=== PATIENT | female | born 1950 | race Caucasian/White ===

== ENCOUNTER → 2019-10-31 11:23 | Outpatient (BNVA) | payer MEDICARE, MEDICAID, SELFPAY | PROVIDERS: Family Provider Family Medicine; PCP Family Medicine; Visit Provider Internal Medicine Cardiovascular Disease | DX: Z95.2 Presence of prosthetic heart valve (principal) | CPT/HCPCS: 85610 ==

== ENCOUNTER → 2019-12-09 12:11 | Outpatient (BNVA) | payer MEDICARE, MEDICAID, SELFPAY | PROVIDERS: Family Provider Family Medicine; PCP Family Medicine; Visit Provider Internal Medicine Cardiovascular Disease | DX: Z95.2 Presence of prosthetic heart valve (principal) | CPT/HCPCS: 85610 ==

== ENCOUNTER → 2020-02-17 13:42 | Outpatient (BNVA) | payer MEDICARE, MEDICAID, SELFPAY | PROVIDERS: Family Provider Family Medicine; PCP Family Medicine; Visit Provider Internal Medicine Cardiovascular Disease | DX: Z95.2 Presence of prosthetic heart valve (principal) | CPT/HCPCS: 85610 ==

== ENCOUNTER → 2020-02-24 11:08 | Outpatient (BNVA) | payer MEDICARE, MEDICAID, SELFPAY | PROVIDERS: Family Provider Family Medicine; PCP Family Medicine; Visit Provider Internal Medicine Cardiovascular Disease | DX: Z95.2 Presence of prosthetic heart valve (principal) | CPT/HCPCS: 85610 ==

== ENCOUNTER → 2020-03-03 11:31 | Outpatient (BNVA) | payer MEDICARE, MEDICAID, SELFPAY | PROVIDERS: Family Provider Family Medicine; PCP Family Medicine; Visit Provider Internal Medicine Cardiovascular Disease | DX: Z95.2 Presence of prosthetic heart valve (principal) | CPT/HCPCS: 85610 ==

== ENCOUNTER → 2020-03-11 13:09 | Outpatient (BNVA) | payer MEDICARE, MEDICAID, SELFPAY | PROVIDERS: Family Provider Family Medicine; PCP Family Medicine; Visit Provider Internal Medicine Cardiovascular Disease | DX: Z95.2 Presence of prosthetic heart valve (principal) | CPT/HCPCS: 85610 ==

== ENCOUNTER → 2020-04-14 11:38 | Outpatient (BNVA) | payer MEDICARE, MEDICAID, SELFPAY | PROVIDERS: Family Provider Family Medicine; PCP Family Medicine; Visit Provider Internal Medicine Cardiovascular Disease | DX: Z95.2 Presence of prosthetic heart valve (principal) | CPT/HCPCS: 85610 ==

== ENCOUNTER → 2020-04-23 09:02 | Outpatient (BNVA) | payer MEDICARE, MEDICAID, SELFPAY | PROVIDERS: Family Provider Family Medicine; PCP Family Medicine; Visit Provider Internal Medicine Cardiovascular Disease | DX: Z95.2 Presence of prosthetic heart valve (principal) | CPT/HCPCS: 85610 ==

== ENCOUNTER 2020-05-29 23:09 | Emergency (ER) | payer MEDICARE, MEDICAID, SELFPAY ==
[2020-05-29 23:12] VITALS: PULSE 103; RESP 22; TEMP 36.6; O2SAT 96; BMI 32.0
[2020-05-29 23:21] VITALS: BP 190/93; PULSE 100; RESP 20; O2SAT 97
--- NOTE | 2020-05-29 23:24 | ECG_ITS ---
[facility] Test Date: 2020-05-29 Pat Name: Odilia Ulloa Department: Room: Gender: Female [facility] Sales: : 1950 Requested By: Piyush Foster Order Number: [id number] Supriya MD: Katrin Petit M.D. Measurements Intervals [place] Rate: 98 P: [place]: -1 QRS: 27 QRSD: 110 T: 6 QT: 302 QTc: 386 Interpretive Statements ATRIAL FIBRILLATION NONSPECIFIC ST & T-WAVE ABNORMALITY ABNORMAL RHYTHM ECG Compared to ECG 09/11/2019 08:29:28 Intraventricular conduction delay no longer present T-wave abnormality still present Electronically Signed On 05-30-2020 22:54:48 CDT by Katrin Petit M.D. [id number]
--- NOTE | 2020-05-29 23:25 | W.ED.SOB ---
HPI - SOB/Dyspnea General: Chief Complaint: Shortness of Breath/Dyspnea Stated Complaint: sob, [place], not feeling well Time Seen by Provider: 05/29/20 23:19 Source: patient Mode of arrival: ambulatory Limitations: no limitations History of Present Illness: HPI Narrative: Odilia is a 69-year-old female states she has been having a headache along with generalized body aches and shortness of breath of last 3 to 4 days. She states she just generally does not feel very well. Denies any chest pain. Patient oxygen saturation here is 97% on room air. Denies any worsening or improving factors. Associated symptoms: Deny abdominal pain, chest pain, fever(s), nausea or vomiting Review of Systems Const: Denies: fever(s), chills, body aches or change in appetite Eyes: Denies: blurry vision or eye discomfort ENMT: Denies: throat pain or dental pain Card: Denies: chest pain Resp: Reports: dyspnea GI: Denies: abdominal pain, nausea, vomiting or diarrhea : Denies: dysuria Musc: Denies: neck pain or back pain Skin/Breast: Denies: rash Neuro: Reports: headache(s) Psych: Denies: depression Guzman/Lymph: Denies: easy bruising All/Imm: Denies: urticaria PFSH ED PFSH: Medical History CHF (congestive heart failure) Chronic atrial fibrillation Chronic constipation Chronic neck and back pain Coronary artery disease GERD (gastroesophageal reflux disease) Hyperlipidemia Hypothyroid Insomnia Memory impairment of gradual onset Surgical History H/O section Mitral valve replaced valve replacement 1994 S/P cholecystectomy Family History Other CAD (coronary artery disease) Diabetes Social History Smoking and tobacco status: never smoked Alcohol intake: never Female Reproductive History: Para: 1 Physical Exam Const: COMMON NORMALS: no acute distress, patient oriented x3 and healthy appearing HENMT: COMMON NORMALS: normocephalic and atraumatic HEAD & SCALP: normocephalic and atraumatic Eye: COMMON NORMALS: Equal, round and reactive pupils present and EOMs intact bilaterally PUPIL: Yes Equal, round and reactive pupils present Neck/C-Spine: COMMON NORMALS: full ROM and supple Chest: COMMONS NORMALS: normal inspection of the chest and normal palpation of entire chest wall Resp: COMMON NORMALS: normal respiratory effort, No retractions, No use of accessory muscles and clear to auscultation bilaterally AUSCULTATION: clear to auscultation bilaterally Cardio: COMMON NORMALS: regular rate, regular rhythm and No murmurs present (Cardio) RATE: regular rate RHYTHM: regular rhythm GI: COMMON NORMALS: Normal to inspection, nondistended, normoactive bowel sounds present, Soft to palpation, non-tender and no masses PALPATION: Yes Soft to palpation Extremity: COMMON NORMALS: normal to inspection and full ROM Neuro: COMMON NORMALS: patient oriented x3, moves all extremities and no focal motor deficits Psych: COMMON NORMALS: mental status grossly normal, Normal thought process present and cooperative THOUGHT PROCESS: Normal thought process present Skin: COMMON NORMALS: no rashes or lesions noted and no wounds GENERAL SKIN EXAM: no rashes or lesions noted Course Vital Signs: Vital signs: Vital Signs Temperature 97.8 F 05/29/20 23:12 Pulse Rate 85 05/30/20 01:04 Respiratory Rate 16 05/30/20 01:04 Blood Pressure 153/70 05/30/20 01:04 Pulse Oximetry 98 05/30/20 01:04 MDM - SOB/Dyspnea MDM Narrative: Medical decision making narrative: Patient presents here with dyspnea along with a headache that is chronic in nature. Patient given IV Lasix for CHF. Patient is not requiring any oxygen. Patient is stable for discharge and is return if worsening. Patient's headache is resolved. Lab Data: Labs: Lab Results 05/29/20 05/29/20 Range/Units 23:37 23:37 WBC 5.7 (4.0-10.0) 10^3/ uL RBC 3.50 L (4.1-5.3) 10^6/u L Hgb 8.8 L (11.5-15.3) g/dL Hct 29.8 L (37.0-47.0) % MCV 85.1 (81-99) fL MCH 25.1 L (28.0-34.0) pg MCHC 29.5 L (30.0-36.0) g/dL RDW 18.8 H (12.1-15.1) % Plt Count 303 (130-400) 10^3/c mm MPV 9.9 (7.4-10.4) fL Neut % (Auto) 46.1 % Lymph % (Auto) 35.8 % [place] % (Auto) 10.9 % Eos % (Auto) 5.4 % Baso % (Auto) 1.4 % Neut # (Auto) 2.63 (1.8-7.7) 10^3/u L Lymph # (Auto) 2.0 (0.8-4.8) 10^3/u L [place] # (Auto) 0.6 (0.2-0.9) 10^3/u L Eos # (Auto) 0.3 (0.0-0.8) 10^3/u L Baso # (Auto) 0.1 (0.0-0.1) 10^3/u L Nucleated RBC % (a uto) 0 % Nucleated RBCs # 0.0 /100WBC Sodium 139 (136-145) mmol/L Potassium 3.8 (3.5-5.1) mmol/L Chloride 108 H (98-107) mmol/L Carbon Dioxide 25 (22-29) mmol/L Anion Gap 9.8 (5-19) BUN 17 (8-23) mg/dL Creatinine 0.8 (0.5-0.9) mg/dL GFR Calculation 70.9 L (90-130) mL/min Glucose 119 H (65-115) mg/dL Calculated Osmolal ity 286 (285-295) mOsm/k g Calcium 9.0 (8.5-10.5) mg/dL Total Bilirubin 0.5 (0.15-1.2) mg/dL AST 46 H (0-32) U/L ALT 44 H (0-33) U/L Alkaline Phosphata se 95 (35-105) IU/L NT-Pro-B Natriuret Pep 560 H (0-125) pg/mL Total Protein 7.3 (6.6-8.7) g/dL Albumin 4.1 (3.5-5.2) g/dL Globulin 3.2 (1.3-4.6) g/dL Imaging Data^: CXR: Attestation: I personally reviewed and interpreted this imaging study as follows: Radiologist's impression: [address] [address] XRay Report Signed Patient: Odilia Ulloa Unit #: [id number] : 1950 Age/Sex: 69 / F ADM Date: 05/29/20 Loc: ER Room/Bed: Attending Dr: Ordering Provider/Ordering MD: Piyush Foster MD Date of Service: 05/29/20 Procedure(s): XR chest 1V portable [id number] Accession Number(s): [id number] Report Number: [id number] PROCEDURE INFORMATION: Exam: XR Chest, 1 View Exam date and time: 05/30/2020 12:14 AM Age: 69 years old Clinical indication: Dyspnea; Prior surgery; Surgery date: 6+ months; Additional info: SOB TECHNIQUE: Imaging protocol: XR of the chest Views: 1 view. COMPARISON: CR Chest 1 [place] [id number] 09/11/2019 8:49 AM FINDINGS: Lungs: There is vascular congestion with cephalization of flow, interstitial edema and ground-glass opacities compatible with CHF. There is linear scarring in the left lung base. No lobar consolidation. Pleural space: Unremarkable. No pleural effusion. No pneumothorax. Heart/Mediastinum: The heart is enlarged. Bones/joints: Sternotomy wires and mediastinal surgical clips are present, consistent with previous coronary arterial bypass grafting. Scoliosis and moderate to severe degenerative changes in the spine are noted. XR/XR chest 1V portable [id number] IMPRESSION: There is vascular congestion with cephalization of flow, interstitial edema and ground-glass opacities compatible with CHF. EKG Data^: EKG 1: Attestation: I personally reviewed and interpreted this EKG as follows: EKG Interpretation Date: 05/29/20 EKG interpretation time: 23:33 Interpretation: afib hr [address] or t wave abnormalities qrs 110 qtc 357 Discharge Plan Discharge Patient Disposition: Home Clinical Impression: Tension headache CHF (congestive heart failure) Qualifiers: Heart failure type: unspecified Heart failure chronicity: chronic Qualified Code(s): I50.9 - Heart failure, unspecified Condition: Stable Prescriptions: No Action furosemide 20 mg tablet 20 mg PO QAM PRN (Reason: edema) Qty: 30 RF: 6 nitroglycerin [Nitrostat] 0.4 mg tablet, sublingual 0.4 mg SUBLINGUAL Q5M PRNRF: 0 metoprolol tartrate 25 mg tablet 12.5 mg PO BID RF: 0 amiodarone 400 mg tablet 400 mg PO DAILY RF: 0 atorvastatin 40 mg tablet 40 mg PO DAILY RF: 0 isosorbide dinitrate 30 mg tablet See Rx Instructions PO DAILY RF: 0 warfarin 5 mg tablet 5 mg PO DAILY RF: 0 venlafaxine 150 mg capsule,extended release 24hr 150 mg PO QAM Qty: 30 RF: 2 baclofen 10 mg tablet 10 mg PO DAILY Qty: 30 RF: 2 warfarin 1 mg tablet 1 mg PO DIRECTED 30 Days Qty: 30 RF: 6 warfarin 4 mg tablet 4 mg PO DAILY Qty: 30 RF: 3 warfarin 3 mg tablet 3 mg PO DAILY Qty: 30 RF: 2 pantoprazole 40 mg tablet,delayed release (DR/EC) 40 mg PO DAILY Qty: 90 RF: 0 levothyroxine 75 mcg capsule 75 mcg PO DAILY Qty: 30 RF: 2 Discharge Orders: Discharge Order (Routine); Ordered 05/30/20 Ordered By: Piyush Foster Referrals: Kenzie Gonzalez DO [Primary Care Provider] - 1-3 days Discharge Diet: Advance as tolerated Discharge Activity: Resume usual activity Patient Instructions: Heart Failure (ED), Acute Headache (ED) Discharge Date/Time: 05/30/20 01:12 Coding Level of Care Code ED Window Unit Air Conditioning Mechanic for Chg Fwd Exam Comprehensive
[2020-05-29 23:45] LABS: Basophils # 0.1 10^3/uL (0.0-0.1); Basophils % 1.4 %; Eosinophils # 0.3 10^3/uL (0.0-0.8); Eosinophils % 5.4 %; Hematocrit 29.8 % (37.0-47.0); Hemoglobin 8.8 g/dL (11.5-15.3); Lymphocytes % 35.8 %; Mean Corpuscular HGB Conc 29.5 g/dL (30.0-36.0); Mean Corpuscular Hemoglobin 25.1 pg (28.0-34.0); Mean Corpuscular Volume 85.1 fL (81-99); Mean Platelet Volume 9.9 fL (7.4-10.4); Monocytes # 0.6 10^3/uL (0.2-0.9); Monocytes % 10.9 %; Neutrophils # 2.63 10^3/uL (1.8-7.7); Neutrophils % 46.1 %; Nucleated Red Blood Cells % 0 %; Platelet Count 303 10^3/cmm (130-400); Red Cell Distribution Width 18.8 % (12.1-15.1); White Blood Count 5.7 10^3/uL (4.0-10.0)
[2020-05-30] VITALS: BP 134/90; PULSE 89; RESP 19; O2SAT 98
[2020-05-30] MEDS: diphenhydrAMINE 50 mg/mL SDV 1mL 25 MG IVP (00:05)
[2020-05-30] MEDS: metoclopramide 5 mg/mL SDV 2 mL IVP (00:06)
[2020-05-30 00:12] LABS: Alanine Aminotransferase 44 U/L (0-33); Albumin Level 4.1 g/dL (3.5-5.2); Alkaline Phosphatase 95 IU/L (35-105); Anion Gap 9.8 (5-19); Aspartate Amino Transferase 46 U/L (0-32); Blood Urea Nitrogen 17 mg/dL (8-23); Carbon Dioxide 25 mmol/L (22-29); Chloride 108 mmol/L (98-107); Globulin 3.2 g/dL (1.3-4.6); Glomerular Filtration Rate 70.9 mL/min (90-130); Glucose 119 mg/dL (65-115); NT Pro B Type Natriuretic Pept 560 pg/mL (0-125); Osmolality Calculated 286 mOsm/kg (285-295); Potassium 3.8 mmol/L (3.5-5.1); Sodium 139 mmol/L (136-145); Total Bilirubin 0.5 mg/dL (0.15-1.2); Total Protein 7.3 g/dL (6.6-8.7)
[2020-05-30] MEDS: FUROsemide 10 mg/mL SDV 10mL 60 MG IVP (01:01)
[2020-05-30 01:04] VITALS: BP 153/70; PULSE 85; RESP 16; O2SAT 98
== END 2020-05-30 01:12 | disposition home or self-care (01) ==
PROVIDERS: Emergency Provider Emergency Medicine; PCP Family Medicine
DX: I11.0 Hypertensive heart disease with heart failure (principal); I50.9 Heart failure, unspecified; G44.209 Tension-type headache, unspecified, not intractable; Z79.01 Long term (current) use of anticoagulants; I48.20 Chronic atrial fibrillation, unspecified; I25.10 Atherosclerotic heart disease of native coronary artery without angina pectoris; E78.5 Hyperlipidemia, unspecified
CPT/HCPCS: 12345; 71045; 80053; 83880; 85025; 93005; 96374; 96375; 99283; 99284; J1200; J1940; J2765

== ENCOUNTER 2020-06-03 12:44 | Emergency (ER) | payer MEDICARE, MEDICAID, SELFPAY ==
[2020-06-03 12:52] VITALS: BP 127/77; PULSE 89; RESP 14; TEMP 36.9; O2SAT 95; BMI 31.8
--- NOTE | 2020-06-03 13:10 | ECG_ITS ---
[facility] Test Date: 2020-06-03 Pat Name: Odilia Ulloa Department: Room: Gender: Female [employer]: : 1950 Requested By: Aneta Jonas Order Number: [id number] Supriya MD: Katrin Petit M.D. Measurements Intervals [place] Rate: 80 P: [place]: -1 QRS: 23 QRSD: 114 T: 7 QT: 410 QTc: 473 Interpretive Statements ATRIAL FIBRILLATION POSSIBLE INFERIOR MYOCARDIAL INFARCTION , PROBABLY OLD [30 ms Q WAVE IN II/aVF] ABNORMAL RHYTHM ECG Compared to ECG 05/29/2020 23:33:52 Myocardial infarct finding now present T-wave abnormality no longer present Electronically Signed On 06-03-2020 21:16:22 CDT by Katrin Petit M.D. [id number] f
--- NOTE | 2020-06-03 13:10 | XR_ITS ---
WS: [id number] PORTABLE CHEST HISTORY: chest pain COMPARISON: 05/30/2020 Mild pulmonary venous congestion has progressed since the prior study. No pneumonia. No pleural effus ion or pneumothorax. Cardiac size: Moderately enlarged cardiac silhouette. Mediastinum/Aorta: Mild atherosclerosis aorta. No osseous abnormality seen. XR/XR chest 1V portable [id number] IMPRESSION: Interval development of mild pulmonary congestion. No pneumonia.
--- NOTE | 2020-06-03 13:12 | ED_ITS ---
HPI - SOB/Dyspnea General: Chief Complaint: General Medical Stated Complaint: sob, facial swelling Time Seen by Provider: 06/03/20 12:58 Source: patient Mode of arrival: ambulatory Limitations: no limitations History of Present Illness: HPI Narrative: Patient is a 69-year-old female who presents to ED today with a complaint that I just don't feel good . Patient tells me that she has a cough, feels short of breath, feels like her face is swollen, and is having swelling to her legs. She chronically has swelling to her legs that she treats with 20 mg of Lasix daily. Patient tells me shortness of breath does not seem to be worse with lying flat or exertion. No PND. She has not been running fevers. She states when she coughs she has pain in her throat and chest. Patient denies palpitations, dizziness, lightheadedness. No other URI symptoms apart from her cough. Denies sick contacts. Patient was seen here in our emergency department a few days ago for similar symptoms. Patient tells me she has an appointment with primary care tomorrow morning. Associated symptoms: Reports chest pain; Deny abdominal pain, dizziness, extremity pain, fever(s), hemoptysis, lightheadedness, nausea, orthopnea, palpitations, syncope or vomiting Review of Systems Const: Denies: fever(s), chills, body aches, fatigue or malaise Eyes: Denies: change in vision, blurry vision, photophobia, floaters or seeing flashes ENMT: Denies: odynophagia Card: Reports: chest pain, irregular heart rhythm (chronic atrial fib), edema (chronic ) and swelling of feet/ankles (chronic ); Denies: palpitations, lightheadedness, syncope, pre-syncope, orthopnea or leg pain with exertion Resp: Reports: dyspnea, non-productive cough and pain on inspiration; Denies: productive cough, wheezing or hemoptysis GI: Denies: abdominal pain, nausea, vomiting, diarrhea or change in bowel habits : Denies: flank pain, difficulty voiding, dysuria, urinary frequency or urinary urgency Musc: Reports: extremity swelling (chronic LE swelling ); Denies: neck pain, back pain, extremity pain, joint pain or joint swelling Skin/Breast: Denies: rash, new lesions or changes in skin color Neuro: Denies: headache(s), numbness in extremities, weakness in extremities, sensory changes, lack of coordination, difficulty walking, frequent falls, dizziness, vertigo, confusion, behavioral changes or Slurred speech [facility]: Medical History (Updated 06/03/20 @ 15:05 by KIKE Elizalde) CHF (congestive heart failure) Chronic atrial fibrillation Chronic constipation Chronic neck and back pain Coronary artery disease GERD (gastroesophageal reflux disease) Hyperlipidemia Hypothyroid Insomnia Memory impairment of gradual onset Surgical History H/O section Mitral valve replaced valve replacement 1994 S/P cholecystectomy Family History Other CAD (coronary artery disease) Diabetes Social History Smoking and tobacco status: never smoked Alcohol intake: never Female Reproductive History: Para: 1 Physical Exam Const: COMMON NORMALS: no acute distress, patient oriented x3, no limitations and alert ORIENTATION/CONSCIOUSNESS: Yes oriented to person, Yes oriented to place and Yes oriented to time HENMT: COMMON NORMALS: normocephalic and atraumatic HEAD & SCALP: normocephalic and atraumatic FACE & SINUS: normal facial exam and other (no facial swelling noted) Neck/C-Spine: COMMON NORMALS: full ROM, no lymphadenopathy and no meningeal signs Chest: COMMONS NORMALS: normal inspection of the chest and normal palpation of entire chest wall Resp: COMMON NORMALS: normal respiratory effort and clear to auscultation bilaterally AUSCULTATION: clear to auscultation bilaterally Cardio: COMMON NORMALS: regular rate RATE: regular rate RHYTHM: abnormal rhythm regularly irregular GI: COMMON NORMALS: Normal to inspection, nondistended, normoactive bowel sounds present, Soft to palpation, non-tender, No hepatosplenomegaly present and no masses PALPATION: Yes Soft to palpation and Yes No hepatosplenomegaly present : COMMON NORMALS: Yes no CVA tenderness BLADDER/KIDNEY EXAM: Yes no CVA tenderness Back/Pelvis: COMMON NORMALS: no CVA tenderness Extremity: COMMON NORMALS: full ROM, capillary refill normal, no joint enlargement, no clubbing, cyanosis or edema, no calf tenderness and no pedal edema OTHER: mild bilateral non-pitting edema Neuro: ANT COMA SCALE: document GCS findings [place] coma scale eye opening: Spontaneous Ant coma scale verbal response: Orientated Ant coma scale motor response: Obey commands Ant coma scale total score: 15 COMMON NORMALS: patient oriented x3 SENSORIUM/ORIENTATION: Yes alert, Yes oriented to person, Yes oriented to place and Yes oriented to time MENINGEAL SIGNS: Yes no meningeal signs Skin: COMMON NORMALS: no rashes or lesions noted GENERAL SKIN EXAM: no rashes or lesions noted Course Vital Signs: Vital signs: Vital Signs Temperature 98.5 F 06/03/20 12:52 Pulse Rate 89 06/03/20 12:52 Respiratory Rate 14 06/03/20 12:52 Blood Pressure 127/77 06/03/20 12:52 Pulse Oximetry 98 06/03/20 14:10 MDM - SOB/Dyspnea MDM Narrative: Medical decision making narrative: Odilia is a 69-year-old female who is well-known to our emergency department here for complaints of not feeling well and increased swelling. On exam she has very mild bilateral non- pitting edema. She states this is minimally worse than her baseline. Chest x- ray does show some mild pulmonary congestion. BNP is slightly elevated at 649. Patient normally takes 20 mg Lasix daily for her CHF. Patient does not complain of any worsening shortness of breath with lying flat. No PND. She was given 40 mg Lasix here and we will increase her Lasix at home over the next 5 days. Patient is anticoagulated with warfarin due to her atrial fib and artificial mitral valve. She was supratherapeutic on her INR today at 4.6. Patient is often found to be supratherapeutic. She admittedly has not checked her INR in several weeks. Patient tells me she normally takes 4 mg warfarin on Sunday and 3 mg the remainder of the week. We will have her decrease this and take 1 mg tomorrow and the following day and then can go back to her regular schedule. She has an appointment with PCP tomorrow who can schedule her for repeat INR check. Patient is chronically anemic at 8.9. This is stable compared to her baseline. She is not complaining of any hematemesis or bloody/black stools. She has very mildly elevated LFTs. She does not complain of any abdominal pain, nausea, vomiting. Patient's vitals are completely stable. She clinically appears in no acute distress. Patient is stable for follow-up with her primary care tomorrow Lab Data: Labs: Lab Results 06/03/20 06/03/20 06/03/20 Range/Units 13:17 13:17 13:17 WBC 5.1 (4.0-10.0) 10^3/ uL RBC 3.66 L (4.1-5.3) 10^6/u L Hgb 8.9 L (11.5-15.3) g/dL Hct 30.6 L (37.0-47.0) % MCV 83.6 (81-99) fL MCH 24.3 L (28.0-34.0) pg MCHC 29.1 L (30.0-36.0) g/dL RDW 18.8 H (12.1-15.1) % Plt Count 318 (130-400) 10^3/c mm MPV 9.5 (7.4-10.4) fL Neut % (Auto) 54.0 % Lymph % (Auto) 29.2 % [place] % (Auto) 10.5 % Eos % (Auto) 4.5 % Baso % (Auto) 1.6 % Neut # (Auto) 2.74 (1.8-7.7) 10^3/u L Lymph # (Auto) 1.5 (0.8-4.8) 10^3/u L [place] # (Auto) 0.5 (0.2-0.9) 10^3/u L Eos # (Auto) 0.2 (0.0-0.8) 10^3/u L Baso # (Auto) 0.1 (0.0-0.1) 10^3/u L Nucleated RBC % (a uto) 0 % Nucleated RBCs # 0.0 /100WBC PT 45.30 H (12.1-14.9) SECO NDS INR 4.60 H (0.8-1.2) Sodium 137 (136-145) mmol/L Potassium 4.1 (3.5-5.1) mmol/L Chloride 103 (98-107) mmol/L Carbon Dioxide 28 (22-29) mmol/L Anion Gap 10.1 (5-19) BUN 16 (8-23) mg/dL Creatinine 0.8 (0.5-0.9) mg/dL GFR Calculation 70.9 L (90-130) mL/min Glucose 123 H (65-115) mg/dL Calculated Osmolal ity 282 L (285-295) mOsm/k g Calcium 9.7 (8.5-10.5) mg/dL Total Bilirubin 0.6 (0.15-1.2) mg/dL AST 41 H (0-32) U/L ALT 51 H (0-33) U/L Alkaline Phosphata se 95 (35-105) IU/L Troponin T Gen 5 n g/L (0-10) ng/L NT-Pro-B Natriuret Pep 649 H (0-125) pg/mL Total Protein 7.3 (6.6-8.7) g/dL Albumin 4.1 (3.5-5.2) g/dL Globulin 3.2 (1.3-4.6) g/dL TSH 1.77 (0.27-4.20) uIU/ mL 06/03/20 Range/Units 13:17 WBC (4.0-10.0) 10^3/ uL RBC (4.1-5.3) 10^6/u L Hgb (11.5-15.3) g/dL Hct (37.0-47.0) % MCV (81-99) fL MCH (28.0-34.0) pg MCHC (30.0-36.0) g/dL RDW (12.1-15.1) % Plt Count (130-400) 10^3/c mm MPV (7.4-10.4) fL Neut % (Auto) % Lymph % (Auto) % [place] % (Auto) % Eos % (Auto) % Baso % (Auto) % Neut # (Auto) (1.8-7.7) 10^3/u L Lymph # (Auto) (0.8-4.8) 10^3/u L [place] # (Auto) (0.2-0.9) 10^3/u L Eos # (Auto) (0.0-0.8) 10^3/u L Baso # (Auto) (0.0-0.1) 10^3/u L Nucleated RBC % (a uto) % Nucleated RBCs # /100WBC PT (12.1-14.9) SECO NDS INR (0.8-1.2) Sodium (136-145) mmol/L Potassium (3.5-5.1) mmol/L Chloride (98-107) mmol/L Carbon Dioxide (22-29) mmol/L Anion Gap (5-19) BUN (8-23) mg/dL Creatinine (0.5-0.9) mg/dL GFR Calculation (90-130) mL/min Glucose (65-115) mg/dL Calculated Osmolal ity (285-295) mOsm/k g Calcium (8.5-10.5) mg/dL Total Bilirubin (0.15-1.2) mg/dL AST (0-32) U/L ALT (0-33) U/L Alkaline Phosphata se (35-105) IU/L Troponin T Gen 5 n g/L 12 H (0-10) ng/L NT-Pro-B Natriuret Pep (0-125) pg/mL Total Protein (6.6-8.7) g/dL Albumin (3.5-5.2) g/dL Globulin (1.3-4.6) g/dL TSH (0.27-4.20) uIU/ mL Imaging Data^: CXR: Radiologist's impression: [address] [address] XRay Report Signed Patient: Odilia Ulloa Unit #: [id number] : 1950 Age/Sex: 69 / F ADM Date: 06/03/20 Loc: ER Room/Bed: Attending Dr: Ordering Provider/Ordering MD: Aneta Jonas Date of Service: 06/03/20 Procedure(s): XR chest 1V portable [id number] Accession Number(s): [id number] Report Number: [id number] WS: [id number] PORTABLE CHEST HISTORY: chest pain COMPARISON: 05/30/2020 Mild pulmonary venous congestion has progressed since the prior study. No pneumonia. No pleural effusion or pneumothorax. Cardiac size: Moderately enlarged cardiac silhouette. Mediastinum/Aorta: Mild atherosclerosis aorta. No osseous abnormality seen. XR/XR chest 1V portable [id number] IMPRESSION: Interval development of mild pulmonary congestion. No pneumonia. Dictated By: Zaida Bone DO Signed By: Zaida Bone DO Signed Date/Time: 06/03/201352 DD/ 51 Discharge Plan Discharge Patient Disposition: Home Clinical Impression: Supratherapeutic INR, Chronic anemia Chronic CHF Qualifiers: Heart failure type: unspecified Qualified Code(s): I50.9 - Heart failure, unspecified Atrial fibrillation Qualifiers: Atrial fibrillation type: longstanding persistent Qualified Code(s): I48.11 - Longstanding persistent atrial fibrillation Condition: Stable Prescriptions: No Action furosemide 20 mg tablet 20 mg PO QAM PRN (Reason: edema) Qty: 30 RF: 6 nitroglycerin [Nitrostat] 0.4 mg tablet, sublingual 0.4 mg SUBLINGUAL Q5M PRN (Reason: chest pains) RF: 0 metoprolol tartrate 25 mg tablet 12.5 mg PO BID RF: 0 amiodarone 400 mg tablet 400 mg PO DAILY RF: 0 atorvastatin 40 mg tablet 40 mg PO DAILY RF: 0 isosorbide dinitrate 30 mg tablet See Rx Instructions PO DAILY RF: 0 warfarin 5 mg tablet 5 mg PO DAILY RF: 0 baclofen 10 mg tablet 10 mg PO DAILY Qty: 30 RF: 2 warfarin 1 mg tablet 1 mg PO DIRECTED 30 Days Qty: 30 RF: 6 warfarin 4 mg tablet 4 mg PO DAILY Qty: 30 RF: 3 levothyroxine 75 mcg capsule 75 mcg PO DAILY Qty: 30 RF: 2 venlafaxine 150 mg capsule,extended release 24hr 150 mg PO QAM Qty: 30 RF: 2 warfarin 3 mg tablet See Rx Instructions .ROUTE .COMPLEX RF: 0 pantoprazole 40 mg tablet,delayed release (DR/EC) 40 mg PO DAILY RF: 0 Discharge Orders: Discharge Order (Routine); Ordered 06/03/20 Ordered By: Aneta Jonas Referrals: Kenzie Gonzalez DO [Primary Care Provider] - Activity Restrictions/Additional Instructions: As discussed increase your Lasix from 20mg daily to 40mg daily x 5 days. Then return to your normal 20mg. You INR today was slightly elevated. Please take 1mg (instead of your normal 3mg) on Sunday and Sunday. You may resume normal dosing afterwards. Primary care will most likely elect to repeat this level soon to make sure you are therapeutic. Discharge Date/Time: 06/03/20 15:16 Coding Level of Care Code ED Park Superintendent for Chg Fwd Exam Comprehensive
[2020-06-03 13:22] LABS: Basophils # 0.1 10^3/uL (0.0-0.1); Basophils % 1.6 %; Eosinophils # 0.2 10^3/uL (0.0-0.8); Eosinophils % 4.5 %; Hematocrit 30.6 % (37.0-47.0); Hemoglobin 8.9 g/dL (11.5-15.3); Lymphocytes # 1.5 10^3/uL (0.8-4.8); Lymphocytes % 29.2 %; Mean Corpuscular HGB Conc 29.1 g/dL (30.0-36.0); Mean Corpuscular Hemoglobin 24.3 pg (28.0-34.0); Mean Corpuscular Volume 83.6 fL (81-99); Mean Platelet Volume 9.5 fL (7.4-10.4); Monocytes # 0.5 10^3/uL (0.2-0.9); Monocytes % 10.5 %; Neutrophils # 2.74 10^3/uL (1.8-7.7); Nucleated Red Blood Cells % 0 %; Platelet Count 318 10^3/cmm (130-400); Red Blood Count 3.66 10^6/uL (4.1-5.3); Red Cell Distribution Width 18.8 % (12.1-15.1); White Blood Count 5.1 10^3/uL (4.0-10.0)
[2020-06-03 13:57] LABS: Troponin T (5th) Once 12 ng/L (0-10)
[2020-06-03 14:08] LABS: Alanine Aminotransferase 51 U/L (0-33); Albumin Level 4.1 g/dL (3.5-5.2); Alkaline Phosphatase 95 IU/L (35-105); Anion Gap 10.1 (5-19); Aspartate Amino Transferase 41 U/L (0-32); Blood Urea Nitrogen 16 mg/dL (8-23); Calcium 9.7 mg/dL (8.5-10.5); Carbon Dioxide 28 mmol/L (22-29); Chloride 103 mmol/L (98-107); Globulin 3.2 g/dL (1.3-4.6); Glomerular Filtration Rate 70.9 mL/min (90-130); Glucose 123 mg/dL (65-115); NT Pro B Type Natriuretic Pept 649 pg/mL (0-125); Osmolality Calculated 282 mOsm/kg (285-295); Potassium 4.1 mmol/L (3.5-5.1); Sodium 137 mmol/L (136-145); Thyroid Stimulating Hormone 1.77 uIU/mL (0.27-4.20); Total Bilirubin 0.6 mg/dL (0.15-1.2); Total Protein 7.3 g/dL (6.6-8.7)
[2020-06-03 14:10] VITALS: O2SAT 98
[2020-06-03 15:11] VITALS: BP 121/79; PULSE 93; RESP 16; O2SAT 92
[2020-06-03] MEDS: FUROsemide 10 mg/mL SDV 4mL 40 MG IVP (15:11)
== END 2020-06-03 15:16 | disposition home or self-care (01) ==
PROVIDERS: Emergency Provider Physician Assistant; PCP Family Medicine
DX: D64.89 Other specified anemias (principal); I50.9 Heart failure, unspecified; I48.11 Longstanding persistent atrial fibrillation; Z79.01 Long term (current) use of anticoagulants; I48.20 Chronic atrial fibrillation, unspecified; I25.10 Atherosclerotic heart disease of native coronary artery without angina pectoris; E78.5 Hyperlipidemia, unspecified
CPT/HCPCS: 12345; 36415; 71045; 80053; 83880; 84443; 84484; 85025; 85610; 93005; 96374; 99282; 99284; J1940

== ENCOUNTER → 2020-06-07 15:49 | Outpatient (BNVA) | payer MEDICARE, MEDICAID, SELFPAY | PROVIDERS: PCP Family Medicine; Visit Provider Internal Medicine Cardiovascular Disease | DX: Z95.2 Presence of prosthetic heart valve (principal); I48.11 Longstanding persistent atrial fibrillation; I50.9 Heart failure, unspecified | CPT/HCPCS: 85610 ==

== ENCOUNTER → 2020-06-14 10:12 | Outpatient (BNVA) | payer MEDICARE, MEDICAID, SELFPAY | PROVIDERS: PCP Nurse Practitioner Family; Visit Provider Internal Medicine Cardiovascular Disease | DX: Z95.2 Presence of prosthetic heart valve (principal) | CPT/HCPCS: 85610 ==

== ENCOUNTER → 2020-07-14 10:59 | Outpatient (BNVA) | payer MEDICARE, MEDICAID, SELFPAY | PROVIDERS: PCP Nurse Practitioner Family; Visit Provider Internal Medicine Cardiovascular Disease | DX: Z95.2 Presence of prosthetic heart valve (principal) | CPT/HCPCS: 85610 ==

== ENCOUNTER → 2020-07-22 10:02 | Outpatient (BNVA) | payer MEDICARE, MEDICAID, SELFPAY | PROVIDERS: PCP Nurse Practitioner Family; Visit Provider Internal Medicine Cardiovascular Disease | DX: Z95.2 Presence of prosthetic heart valve (principal); I48.20 Chronic atrial fibrillation, unspecified | CPT/HCPCS: 85610 ==

== ENCOUNTER 2020-09-19 03:23 | Emergency (ER) | payer MEDICARE, MEDICAID, SELFPAY ==
[2020-09-19 03:27] VITALS: BP 138/91; PULSE 84; RESP 18; TEMP 36.8; O2SAT 91; BMI 32.1
--- NOTE | 2020-09-19 03:55 | XRR_ITS ---
PROCEDURE INFORMATION: Exam: XR Right Shoulder Exam date and time: 09/19/2020 4:23 AM Age: 69 years old Clinical indication: Injury or trauma; Fall; Blunt trauma (contusions or hematomas); Shoulder; Right TECHNIQUE: Imaging protocol: XR Right shoulder. Views: 2 or more views. COMPARISON: No relevant prior studies available. FINDINGS: Bones/joints: There is a comminuted fracture of the humeral neck. The humeral shaft is displaced anteriorly by approximately 1 cm. The humeral head does not appear to be dislocated. The visualized portion of the clavicle and scapula are unremarkable. Soft tissues: Normal. XR/XR shoulder RT min 2V* [id number] IMPRESSION: Displaced comminuted fracture of the humeral neck.
--- NOTE | 2020-09-19 03:57 | ED_ITS ---
HPI - Fall General: Chief Complaint: Fall Stated Complaint: FALL Time Seen by Provider: 09/19/20 03:38 History of Present Illness: HPI Narrative: 69-year-old female with a fall at home. She struck her right shoulder. She has intense pain in the right shoulder. She also notes that she abraded her face, and hurt her knees when she fell. She was able to bear weight on her knees. She says they feel stiff. There are is no numbness or tingling to the right hand. MD complaint: fall Onset (ago): minute(s) Fall from: standing Fall witnessed: yes, by family Place fall occurred: home Loss of consciousness: None Prolonged down time: no Symptoms prior to fall: none Context: tripped/slipped Location of injury - extremities: Right: shoulder Quality: sharp Associated symptoms-after fall: Denies chest pain Review of Systems Const: Denies: fever(s) or chills Card: Denies: chest pain Resp: Denies: dyspnea GI: Denies: vomiting PFSH ED PFSH: Medical History (Updated 09/19/20 @ 04:34 by Charlie Lyons DO) Anemia in chronic illness Back pain with risk for osteoporosis CAD (coronary artery disease) CHF (congestive heart failure) Chronic atrial fibrillation Chronic constipation Chronic neck and back pain CKD (chronic kidney disease) stage 2, GFR 60-89 ml/min Enrolled in chronic care management GERD (gastroesophageal reflux disease) Hyperlipidemia Hypertension Hypothyroid Insomnia Memory impairment of gradual onset Surgical History H/O section Mitral valve replaced valve replacement 1994 S/P cholecystectomy Family History Other CAD (coronary artery disease) Diabetes Social History Smoking and tobacco status: never smoked Alcohol intake: never Female Reproductive History: Para: 1 Physical Exam Const: GENERAL APPEARANCE: in distress and frail appearing Chest: COMMONS NORMALS: normal inspection of the chest and normal palpation of entire chest wall Resp: COMMON NORMALS: normal respiratory effort, No retractions and clear to auscultation bilaterally AUSCULTATION: clear to auscultation bilaterally Cardio: COMMON NORMALS: regular rhythm RHYTHM: regular rhythm HEART SOUNDS: no murmurs GI: COMMON NORMALS: Soft to palpation and non-tender PALPATION: Yes Soft to palpation Extremity: NARRATIVE EXTREMITY EXAM: Exam of the right shoulder reveals intense tenderness to the proximal humerus area. There is mild deformity. No AC tenderness, no clavicular deformity. There is no wrist drop, and wrist extension is intact. Sensation is intact. Pulses are good. OTHER: Exam of the knees reveals mild tenderness bilaterally. There are no deformities. Skin: NARRATIVE SKIN EXAM: Small abrasion to the nose anteriorly. There is no septal hematoma or evidence of bleeding from the nasal passage. Course Vital Signs: Vital signs: Vital Signs Temperature 98.2 F 09/19/20 03:27 Pulse Rate 84 09/19/20 03:27 Respiratory Rate 19 H 09/19/20 05:15 Blood Pressure 138/91 09/19/20 03:27 Pulse Oximetry 97 09/19/20 05:15 MDM - Fall MDM Narrative: Medical decision making narrative: Shoulder x-ray shows a fracture through the surgical neck of the humerus with positional displacement. Glenohumeral joint is intact. She is placed in a shoulder immobilizer, given pain medication, and asked to follow-up with orthopedics. Discharge Plan Discharge Patient Disposition: Home Clinical Impression: Fracture of proximal end of right humerus Qualifiers: Encounter type: initial encounter Fracture type: closed Fracture morphology: other fracture Fracture alignment: displaced Qualified Code(s): S42.291A - Other displaced fracture of upper end of right humerus, initial encounter for closed fracture Condition: Stable Prescriptions: New Percocet 7.5-325 mg tablet 1 tab PO Q6H PRN (Reason: pain) Qty: 14 RF: 0 No Action nitroglycerin [Nitrostat] 0.4 mg tablet, sublingual 0.4 mg SUBLINGUAL Q5M PRN (Reason: chest pains) RF: 0 metoprolol tartrate 25 mg tablet 12.5 mg PO BID RF: 0 amiodarone 400 mg tablet 400 mg PO DAILY RF: 0 isosorbide dinitrate 30 mg tablet See Rx Instructions PO DAILY RF: 0 warfarin 5 mg tablet 5 mg PO DAILY RF: 0 baclofen 10 mg tablet 10 mg PO DAILY Qty: 30 RF: 2 furosemide 40 mg tablet 40 mg PO QAM Qty: 90 RF: 3 potassium chloride 20 mEq tablet extended release 20 meq PO DAILY Qty: 90 RF: 3 warfarin 3 mg tablet 3 mg PO DAILY Qty: 30 RF: 6 warfarin 2 mg tablet 2 mg PO DAILY Qty: 30 RF: 6 tramadol-acetaminophen 37.5-325 mg tablet 1 tab PO .hs PRN (Reason: pain, moderate at night) Qty: 30 RF: 0 warfarin 1 mg tablet 1 mg PO DIRECTED 30 Days Qty: 30 RF: 6 warfarin 4 mg tablet 4 mg PO DAILY Qty: 30 RF: 3 atorvastatin 40 mg tablet 40 mg PO DAILY Qty: 30 RF: 3 venlafaxine 150 mg capsule,extended release 24hr 150 mg PO QAM Qty: 30 RF: 2 levothyroxine [Euthyrox] 75 mcg tablet 75 mcg PO DAILY 30 Days Qty: 30 RF: 3 pantoprazole 40 mg tablet,delayed release (DR/EC) 40 mg PO DAILY Qty: 30 RF: 2 Discharge Orders: Discharge Order (Routine); Ordered 09/19/20 Ordered By: Charlie Lyons Referrals: Nilton Longoria DO [Physician] - 1-3 days Sofia oGodman FNP [Primary Care Provider] - Discharge Diet: Advance as tolerated Discharge Activity: Increase activity as tolerated Patient Instructions: Arm Fracture in Adults (ED) Activity Restrictions/Additional Instructions: Stay in shoulder immobilizer until seen by orthopedics. Call orthopedics on Sunday for an appointment this coming week. Ice your shoulder religiously for pain. You may also take pain medication as directed. Return for inability to extend your wrist, significant worsening numbness, other concerning symptoms. Coding Level of Care Code ED Community Service Specialist for Indra Fwd Exam Detailed
[2020-09-19 05:15] VITALS: RESP 19; O2SAT 97
[2020-09-19] MEDS: fentaNYL 50 mcg/mL INJ 2mL IVP (05:15)
[2020-09-19 06:14] VITALS: RESP 18; O2SAT 95
[2020-09-19] MEDS: oxyCODONE-APAP 5-325 mg Tablet 2 TAB PO (06:14)
[2020-09-19] MEDS: ondansetron 4 MG Tablet PO (06:14)
[2020-09-19] MEDS: ondansetron 2 mg/ML SDV 2 mL 4 MG IVP (06:14)
[2020-09-19 06:18] VITALS: BP 115/67; PULSE 85; O2SAT 95
== END 2020-09-19 06:18 | disposition home or self-care (01) ==
PROVIDERS: Emergency Provider Emergency Medicine; PCP Nurse Practitioner Family
DX: S42.291A Other displaced fracture of upper end of right humerus, initial encounter for closed fracture (principal); Z79.01 Long term (current) use of anticoagulants; I25.10 Atherosclerotic heart disease of native coronary artery without angina pectoris; I50.9 Heart failure, unspecified; I48.20 Chronic atrial fibrillation, unspecified; I13.0 Hypertensive heart and chronic kidney disease with heart failure and stage 1 through stage 4 chronic kidney disease, or unspecified chronic kidney disease; N18.2 Chronic kidney disease, stage 2 (mild); E78.5 Hyperlipidemia, unspecified
CPT/HCPCS: 12345; 29240; 73030; 96374; 96375; 99282; 99283; J2405; J3010; Q0162

== ENCOUNTER 2020-10-03 17:20 | Emergency (ER) | payer MEDICARE, MEDICAID, SELFPAY ==
[2020-10-03 17:27] VITALS: BP 102/63; PULSE 96; RESP 18; TEMP 36.6; O2SAT 97; BMI 24.7
[2020-10-03 17:34] VITALS: BP 102/63; PULSE 105; RESP 14; O2SAT 97
--- NOTE | 2020-10-03 17:57 | ED_ITS ---
HPI - Recheck/Abnormal Lab/Rx General: Chief Complaint: Recheck/Abnormal Lab/Rx Stated Complaint: OUT OF PAIN MEDS Time Seen by Provider: 10/03/20 17:27 History of Present Illness: HPI narrative: 69-year-old female diagnosed with proximal humerus fracture on the right 2 weeks ago now. She presents after missing an appointment to orthopedics complaining of pain. She took her last pain pill earlier today. She was not wearing her shoulder immobilizer when the ambulance picked her up. complaint: medication refill request Initial visit (ago): week(s) (2) Initial visit for: other Returns today for: request for prescription Symptoms since prior visit: no new symptoms Context: ran out of medication Associated symptoms: none Review of Systems Const: Denies: fever(s) or chills Card: Denies: chest pain Resp: Denies: dyspnea, productive cough or non-productive cough GI: Denies: vomiting PFS ED PFSH: Medical History (Updated 10/03/20 @ 17:59 by Charlie Lyons DO) Anemia in chronic illness Back pain with risk for osteoporosis CAD (coronary artery disease) CHF (congestive heart failure) Chronic atrial fibrillation Chronic constipation Chronic neck and back pain CKD (chronic kidney disease) stage 2, GFR 60-89 ml/min Enrolled in chronic care management GERD (gastroesophageal reflux disease) Hyperlipidemia Hypertension Hypothyroid Insomnia Memory impairment of gradual onset Surgical History H/O section Mitral valve replaced valve replacement 1994 S/P cholecystectomy Family History Other CAD (coronary artery disease) Diabetes Social History Smoking and tobacco status: never smoked Alcohol intake: never Female Reproductive History: Para: 1 Physical Exam Const: COMMON NORMALS: no acute distress and patient oriented x3 ORIENTATION/CONSCIOUSNESS: Yes awake Eye: COMMON NORMALS: Equal, round and reactive pupils present and EOMs intact bilaterally PUPIL: Yes Equal, round and reactive pupils present Chest: COMMONS NORMALS: normal inspection of the chest Resp: COMMON NORMALS: normal respiratory effort, No use of accessory muscles and clear to auscultation bilaterally AUSCULTATION: clear to auscultation bilaterally Cardio: COMMON NORMALS: regular rate and regular rhythm RATE: regular rate RHYTHM: regular rhythm Extremity: NARRATIVE EXTREMITY EXAM: Exam of the right shoulder reveals mild deformity although no deformity suggestive of dislocation. There is tenderness to palpation of the proximal humerus and mid humerus. There is no elbow tenderness. There is no clavicular tenderness. Neuro: COMMON NORMALS: patient oriented x3 Course Vital Signs: Vital signs: Vital Signs Temperature 97.8 F 10/03/20 17:27 Pulse Rate 105 H 10/03/20 17:34 Respiratory Rate 14 10/03/20 17:34 Blood Pressure 102/63 10/03/20 17:34 Pulse Oximetry 97 10/03/20 17:34 MDM - Recheck/Abnormal Lab/Rx MDM Narrative: Medical decision making narrative: 69-year-old noncompliant patient who took her last dose of pain medication earlier today. She notes that she missed her orthopedic appointment because she did not have a ride. We will ask case management to get involved, as she has a significant humeral neck fracture with some displacement. She has obviously been noncompliant with her shoulder immobilizer. Discharge Plan Discharge Patient Disposition: Home Clinical Impression: Fracture of proximal humerus Qualifiers: Encounter type: subsequent encounter Fracture type: closed Fracture alignment: displaced Laterality: right Condition: Stable Prescriptions: [place] 5-325 mg tablet 1 tab PO Q6H Qty: 10 RF: 0 No Action nitroglycerin [Nitrostat] 0.4 mg tablet, sublingual 0.4 mg SUBLINGUAL Q5M PRN (Reason: chest pains) RF: 0 metoprolol tartrate 25 mg tablet 12.5 mg PO BID RF: 0 amiodarone 400 mg tablet 400 mg PO DAILY RF: 0 isosorbide dinitrate 30 mg tablet See Rx Instructions PO DAILY RF: 0 warfarin 5 mg tablet 5 mg PO DAILY RF: 0 baclofen 10 mg tablet 10 mg PO DAILY Qty: 30 RF: 2 furosemide 40 mg tablet 40 mg PO QAM Qty: 90 RF: 3 potassium chloride 20 mEq tablet extended release 20 meq PO DAILY Qty: 90 RF: 3 warfarin 3 mg tablet 3 mg PO DAILY Qty: 30 RF: 6 warfarin 2 mg tablet 2 mg PO DAILY Qty: 30 RF: 6 tramadol-acetaminophen 37.5-325 mg tablet 1 tab PO .hs PRN (Reason: pain, moderate at night) Qty: 30 RF: 0 warfarin 1 mg tablet 1 mg PO DIRECTED 30 Days Qty: 30 RF: 6 warfarin 4 mg tablet 4 mg PO DAILY Qty: 30 RF: 3 atorvastatin 40 mg tablet 40 mg PO DAILY Qty: 30 RF: 3 venlafaxine 150 mg capsule,extended release 24hr 150 mg PO QAM Qty: 30 RF: 2 levothyroxine [Euthyrox] 75 mcg tablet 75 mcg PO DAILY 30 Days Qty: 30 RF: 3 pantoprazole 40 mg tablet,delayed release (DR/EC) 40 mg PO DAILY Qty: 30 RF: 2 Percocet 7.5-325 mg tablet 1 tab PO Q6H PRN (Reason: pain) Qty: 14 RF: 0 Discharge Orders: Discharge ED (Routine); Ordered 10/03/20 Ordered By: Charlie Lyons Referrals: Avinash Simms MD [Physician] - 1-3 days Sofia Goodman FNP [Primary Care Provider] - Discharge Diet: Advance as tolerated Discharge Activity: Limit activity as instructed Patient Instructions: Arm Fracture in Adults (ED) Activity Restrictions/Additional Instructions: Case management will make you an appointment for orthopedics. If you do not hear from them by Sunday afternoon, call [phone] and ask for the ER case management associate. STAY IN YOUR SHOULDER IMMOBILIZER. Pain medication as directed. Do not return to the emergency department for pain medication refill, as you will not receive any more pain medication. Coding Level of Care Code ED Topline Beading Machine Tender for Indra Fwd Exam Expanded Problem Focused
--- NOTE | 2020-10-05 10:08 | DCPLANNER ---
circulation manager had message to schedule a follow up appointment for patient with ortho. circulation manager called the ortho clinic, spoke with Natalee, gave clinic patients information. circulation manager was told that patients information would be printed and reviewed. Clinic will call patient with appointment information.
--- NOTE | 2020-10-15 08:31 | DCPLANNER ---
Patient has a follow up appointment scheduled for Sunday, October 15, 2020 at 9:45 with ortho. Clinic will call patient with appointment information.
--- NOTE | 2020-11-30 08:03 | DCPLANNER ---
Patient had a follow up appointment scheduled with ortho - patient did attend appointment.
== END 2020-10-03 18:40 | disposition home or self-care (01) ==
LOC: ER 17:58
PROVIDERS: Emergency Provider Emergency Medicine; PCP Nurse Practitioner Family
DX: S42.201A Unspecified fracture of upper end of right humerus, initial encounter for closed fracture (principal); Z79.01 Long term (current) use of anticoagulants; I25.10 Atherosclerotic heart disease of native coronary artery without angina pectoris; I48.20 Chronic atrial fibrillation, unspecified; I13.0 Hypertensive heart and chronic kidney disease with heart failure and stage 1 through stage 4 chronic kidney disease, or unspecified chronic kidney disease; N18.2 Chronic kidney disease, stage 2 (mild); I50.9 Heart failure, unspecified; E78.5 Hyperlipidemia, unspecified; X58.XXXA Exposure to other specified factors, initial encounter
CPT/HCPCS: 12345; 99282

== ENCOUNTER 2020-10-06 17:57 | Inpatient (IN) | payer MEDICARE, MEDICAID, SELFPAY ==
[2020-10-06] VITALS (9 sets, daily range): BP systolic 95–130; BP diastolic 48–82; PULSE 84–96; RESP 16–98; TEMP 36.6; O2SAT 93–98; BMI 32.7
--- NOTE | 2020-10-06 18:19 | XR_ITS ---
WS: [id number] XR chest 1V portable [id number] REASON FOR EXAM: shortness of breath FINDINGS: Previous sternotomy. The heart is at the upper limits of normal in size. Compared to previous examination of 06/03/2020, the infiltrative change in the right lower lung has resolved. There are multiple new linear areas of den sity in both lower lungs, the right upper lung and left midlung. These areas have the appearance atel ectasis. There is now a fracture through the surgical neck of the right humerus. No other interval change or new finding. XR/XR chest 1V portable [id number] IMPRESSION: Multiple areas of atelectasis in both lungs.
--- NOTE | 2020-10-06 18:19 | XR_ITS ---
WS: [id number] XR shoulder RT 1V 75054 REASON FOR EXAM: subacute fracture, no intervention FINDINGS: Three-part fracture of the surgical neck of the right humerus. Glenoid and acromioclavicular joint intact. XR/XR shoulder RT 1V [id number] IMPRESSION: Fracture proximal right humerus as above.
--- NOTE | 2020-10-06 18:24 | ED_ITS ---
HPI - General Adult General: Chief complaint: Extremity Injury, Upper Stated complaint: GEN NOT FEELING WELL Time Seen by Provider: 10/06/20 18:06 History of Present Illness: HPI narrative: Patient is a 69-year-old female seen for not feeling well. She states that she has had several days of worsening generalized weakness, generalized aches, nausea, shortness of breath with exertion, headache. She denies chest pain, dysuria, diarrhea. She is unsure whether she has had fevers. She denies known sick contacts. She has been seen multiple times in the emergency department recently for a fall and broken proximal humerus for which she has not followed up with orthopedics. She arrives in a sling. She has no other acute complaints. Associated symptoms: Reports headache(s) Review of Systems General: Reports: 10 or more systems reviewed and unremarkable except in HPI and below Const: Reports: chills, change in appetite and fatigue Neuro: Reports: headache(s) [facility] ED PFSH: Medical History (Updated 10/06/20 @ 20:43 by Fidel Neff MD) Anemia in chronic illness Back pain with risk for osteoporosis CAD (coronary artery disease) CHF (congestive heart failure) Chronic atrial fibrillation Chronic constipation Chronic neck and back pain CKD (chronic kidney disease) stage 2, GFR 60-89 ml/min Enrolled in chronic care management GERD (gastroesophageal reflux disease) Hyperlipidemia Hypertension Hypothyroid Insomnia Memory impairment of gradual onset Surgical History H/O section Mitral valve replaced valve replacement 1994 S/P cholecystectomy Family History Other CAD (coronary artery disease) Diabetes Social History Smoking and tobacco status: never smoked Alcohol intake: never Female Reproductive History: Para: 1 Physical Exam Const: COMMON NORMALS: no acute distress and alert HENMT: COMMON NORMALS: normocephalic and atraumatic; oral mucous membranes not moist HEAD & SCALP: normocephalic and atraumatic NOSE: no Nasal discharge present (dry) Cardio: COMMON NORMALS: regular rate; negative for regular rhythm (irregularly irregular) RATE: regular rate RHYTHM: abnormal rhythm (irregularly irregular) Neuro: SENSORIUM/ORIENTATION: Yes alert Course Vital Signs: Vital signs: Vital Signs Temperature 97.9 F 10/06/20 18:06 Pulse Rate 85 10/06/20 18:39 Respiratory Rate 18 10/06/20 18:39 Blood Pressure 95/48 10/06/20 18:39 Pulse Oximetry 93 10/06/20 18:39 MDM - General Adult MDM Narrative: Medical decision making narrative: Patient presents dry, borderline tachycardic, somnolent, concerning for metabolic encephalopathy versus sepsis versus UTI. Laboratory evaluation confirms acute kidney injury with creatinine of 2.1 up from her baseline of 0.8. I believe her generalized weakness is secondary to metabolic encephalopathy. She was given a bolus of normal saline in the emergency department. I spoke with the hospitalist service who graciously agrees to meet the patient for further observation and care. Repeat x-ray of the right humerus was obtained to evaluate for gross misalignment as she has not followed up with orthopedics. Lab Data: Labs: Lab Results 10/06/20 10/06/20 10/06/20 Range/Units 19:10 19:11 19:43 WBC 11.6 H (4.0-10.0) 10^3/ uL RBC 3.75 L (4.1-5.3) 10^6/u L Hgb 9.8 L (11.5-15.3) g/dL Hct 30.9 L (37.0-47.0) % MCV 82.4 (81-99) fL MCH 26.1 L (28.0-34.0) pg MCHC 31.7 (30.0-36.0) g/dL RDW 19.2 H (12.1-15.1) % Plt Count 737 H (130-400) 10^3/c mm MPV 9.8 (7.4-10.4) fL Neut % (Auto) 81.6 % Lymph % (Auto) 6.0 % [place] % (Auto) 10.2 % Eos % (Auto) 1.5 % Baso % (Auto) 0.2 % Neut # (Auto) 9.47 H (1.8-7.7) 10^3/u L Lymph # (Auto) 0.7 L (0.8-4.8) 10^3/u L [place] # (Auto) 1.2 H (0.2-0.9) 10^3/u L Eos # (Auto) 0.2 (0.0-0.8) 10^3/u L Baso # (Auto) 0.0 (0.0-0.1) 10^3/u L Nucleated RBC % (a uto) 0 % Nucleated RBCs # 0.0 /100WBC PT (12.1-14.9) SECO NDS INR (0.8-1.2) Sodium (136-145) mmol/L Potassium (3.5-5.1) mmol/L Chloride (98-107) mmol/L Carbon Dioxide (22-29) mmol/L Anion Gap (5-19) BUN (8-23) mg/dL Creatinine (0.5-0.9) mg/dL GFR Calculation (90-130) mL/min Glucose (65-115) mg/dL Calculated Osmolal ity (285-295) mOsm/k g Lactic Acid (0.5-2.2) mmol/L Calcium (8.5-10.5) mg/dL Total Bilirubin (0.15-1.2) mg/dL AST (0-32) U/L ALT (0-33) U/L Alkaline Phosphata se (35-105) IU/L Total Protein (6.6-8.7) g/dL Albumin (3.5-5.2) g/dL Globulin (1.3-4.6) g/dL TSH (0.27-4.20) uIU/ mL Urine Color Yellow (Yellow) Urine Appearance Cloudy (CLEAR) Urine pH 5 (5-7) Ur Specific Gravit y 1.020 (1.005-1.030) Urine Protein Neg (Negative) Urine Glucose (UA) Norm (Normal) Urine Ketones Negative (Negative) Urine Blood 2+ H (Negative) Urine Nitrate Negative (Negative) Urine Bilirubin Neg (Negative) Urine Urobilinogen Norm (Negative) mg/dL Ur Leukocyte [place] ase 2+ H (Negative) Urine RBC 5-10 H (0-2) /hpf Urine WBC 25-40 H (0-5) /hpf Ur Squamous Epith Cells 0-4 H (0-5) /hpf Amorphous Sediment Not Reportable Urine Bacteria 4+ H (NONE) /hpf SARS-CoV-2 Ag (Rap id) Negative (Negative) 10/06/20 10/06/20 10/06/20 Range/Units 19:43 19:43 19:43 WBC (4.0-10.0) 10^3/ uL RBC (4.1-5.3) 10^6/u L Hgb (11.5-15.3) g/dL Hct (37.0-47.0) % MCV (81-99) fL MCH (28.0-34.0) pg MCHC (30.0-36.0) g/dL RDW (12.1-15.1) % Plt Count (130-400) 10^3/c mm MPV (7.4-10.4) fL Neut % (Auto) % Lymph % (Auto) % [place] % (Auto) % Eos % (Auto) % Baso % (Auto) % Neut # (Auto) (1.8-7.7) 10^3/u L Lymph # (Auto) (0.8-4.8) 10^3/u L [place] # (Auto) (0.2-0.9) 10^3/u L Eos # (Auto) (0.0-0.8) 10^3/u L Baso # (Auto) (0.0-0.1) 10^3/u L Nucleated RBC % (a uto) % Nucleated RBCs # /100WBC PT 19.60 H (12.1-14.9) SECO NDS INR 1.60 H (0.8-1.2) Sodium 132 L (136-145) mmol/L Potassium 3.8 (3.5-5.1) mmol/L Chloride 96 L (98-107) mmol/L Carbon Dioxide 29 (22-29) mmol/L Anion Gap 10.8 (5-19) BUN 73 H (8-23) mg/dL Creatinine 2.1 H (0.5-0.9) mg/dL GFR Calculation 23.3 L (90-130) mL/min Glucose 99 (65-115) mg/dL Calculated Osmolal ity 296 H (285-295) mOsm/k g Lactic Acid 1.0 (0.5-2.2) mmol/L Calcium 10.4 (8.5-10.5) mg/dL Total Bilirubin 1.1 (0.15-1.2) mg/dL AST 117 H (0-32) U/L ALT 110 H (0-33) U/L Alkaline Phosphata se 197 H (35-105) IU/L Total Protein 7.1 (6.6-8.7) g/dL Albumin 3.2 L (3.5-5.2) g/dL Globulin 3.9 (1.3-4.6) g/dL TSH 0.49 (0.27-4.20) uIU/ mL Urine Color (Yellow) Urine Appearance (CLEAR) Urine pH (5-7) Ur Specific Gravit y (1.005-1.030) Urine Protein (Negative) Urine Glucose (UA) (Normal) Urine Ketones (Negative) Urine Blood (Negative) Urine Nitrate (Negative) Urine Bilirubin (Negative) Urine Urobilinogen (Negative) mg/dL Ur Leukocyte [place] ase (Negative) Urine RBC (0-2) /hpf Urine WBC (0-5) /hpf Ur Squamous Epith Cells (0-5) /hpf Amorphous Sediment Urine Bacteria (NONE) /hpf SARS-CoV-2 Ag (Rap id) (Negative) Discharge Plan Discharge Patient Disposition: Placed in Observation Clinical Impression: EFRAIN (acute kidney injury) Condition: Stable Prescriptions: No Action nitroglycerin [Nitrostat] 0.4 mg tablet, sublingual 0.4 mg SUBLINGUAL Q5M PRN (Reason: chest pains) RF: 0 metoprolol tartrate 25 mg tablet 12.5 mg PO BID RF: 0 isosorbide dinitrate 30 mg tablet See Rx Instructions PO DAILY RF: 0 warfarin 5 mg tablet 5 mg PO DAILY RF: 0 baclofen 10 mg tablet 10 mg PO DAILY Qty: 30 RF: 2 furosemide 40 mg tablet 40 mg PO QAM Qty: 90 RF: 3 potassium chloride 20 mEq tablet extended release 20 meq PO DAILY Qty: 90 RF: 3 warfarin 3 mg tablet 3 mg PO DAILY Qty: 30 RF: 6 warfarin 2 mg tablet 2 mg PO DAILY Qty: 30 RF: 6 tramadol-acetaminophen 37.5-325 mg tablet 1 tab PO .hs PRN (Reason: pain, moderate at night) Qty: 30 RF: 0 warfarin 1 mg tablet 1 mg PO DIRECTED 30 Days Qty: 30 RF: 6 warfarin 4 mg tablet 4 mg PO DAILY Qty: 30 RF: 3 atorvastatin 40 mg tablet 40 mg PO DAILY Qty: 30 RF: 3 venlafaxine 150 mg capsule,extended release 24hr 150 mg PO QAM Qty: 30 RF: 2 levothyroxine [Euthyrox] 75 mcg tablet 75 mcg PO DAILY 30 Days Qty: 30 RF: 3 pantoprazole 40 mg tablet,delayed release (DR/EC) 40 mg PO DAILY Qty: 30 RF: 2 amiodarone 400 mg tablet 400 mg PO DAILY Qty: 30 RF: 6 oxycodone-acetaminophen [Percocet] 7.5-325 mg tablet 1 tab PO Q6H PRN (Reason: pain) Qty: 14 RF: 0 hydrocodone-acetaminophen [[place]] 5-325 mg tablet 1 tab PO Q6H Qty: 10 RF: 0 Referrals: Sofia Goodman FNP [Primary Care Provider] - Coding Level of Care Code ED Hearing Impaired Teacher for Chg Fwd Exam Expanded Problem Focused
--- NOTE | 2020-10-06 18:25 | ECG_ITS ---
[facility] Test Date: 2020-10-06 Pat Name: Odilia Ulloa Department: Room: 279 Gender: Female Deck And Hull Assembler: : 1950 Requested By: Fidel Neff Order Number: [id number] Supriya MD: Leia Grant M.D. Measurements Intervals [place] Rate: 91 P: OK: QRS: 19 QRSD: 158 T: -83 QT: 446 QTc: 551 Interpretive Statements ATRIAL FIBRILLATION LEFT BUNDLE BRANCH BLOCK [120+ ms QRS DURATION, 80+ ms Q/S IN V1/V2, 85+ ms R IN I/aVL/V5/V6] Compared to ECG 06/03/2020 14:07:29 Left bundle-branch block now present Myocardial infarct finding no longer present Electronically Signed On 10-07-2020 21:24:33 SEED CUTTER by Leia Grant M.D. [email or web address]
--- NOTE | 2020-10-06 18:44 | PC.NURSE ---
I helped with the Triage note and assessment.
[2020-10-06 19:50] LABS: Add Urine Microscopic? YES; Bacteria Urine 4+ /hpf; Bilirubin Urine Neg (Negative); Blood Urine 2+ (Negative); Glucose Urine UA Norm (Normal); Ketones Urine Negative (Negative); Leukocyte Esterase Urine 2+ (Negative); Nitrate Urine Negative (Negative); Protein Urine Neg (Negative); Urine Appearance Cloudy (CLEAR); Urine Color Yellow (Yellow); Urobilinogen Urine Norm (Negative); pH Urine 5 (5-7)
[2020-10-06 19:51] LABS: Add Urine Culture? Yes; Squamous Epithelial Cell Urine 0-4 /hpf (0-5); WBC Urine 25-40 /hpf (0-5)
[2020-10-06 19:53] LABS: SARS Covid-2 Antigen Negative (Negative)
[2020-10-06] MEDS: sodium chloride 0.9% 1,000 ML 999 ML IV (20:00)
[2020-10-06 20:11] LABS: Basophils % 0.2 %; Eosinophils # 0.2 10^3/uL (0.0-0.8); Eosinophils % 1.5 %; Hematocrit 30.9 % (37.0-47.0); Hemoglobin 9.8 g/dL (11.5-15.3); Lymphocytes # 0.7 10^3/uL (0.8-4.8); Mean Corpuscular HGB Conc 31.7 g/dL (30.0-36.0); Mean Corpuscular Hemoglobin 26.1 pg (28.0-34.0); Mean Corpuscular Volume 82.4 fL (81-99); Mean Platelet Volume 9.8 fL (7.4-10.4); Monocytes # 1.2 10^3/uL (0.2-0.9); Monocytes % 10.2 %; Neutrophils # 9.47 10^3/uL (1.8-7.7); Neutrophils % 81.6 %; Nucleated Red Blood Cells % 0 %; Platelet Count 737 10^3/cmm (130-400); Red Blood Count 3.75 10^6/uL (4.1-5.3); Red Cell Distribution Width 19.2 % (12.1-15.1); White Blood Count 11.6 10^3/uL (4.0-10.0)
[2020-10-06 20:23] LABS: Alanine Aminotransferase 110 U/L (0-33); Albumin Level 3.2 g/dL (3.5-5.2); Alkaline Phosphatase 197 IU/L (35-105); Anion Gap 10.8 (5-19); Aspartate Amino Transferase 117 U/L (0-32); Blood Urea Nitrogen 73 mg/dL (8-23); Calcium 10.4 mg/dL (8.5-10.5); Carbon Dioxide 29 mmol/L (22-29); Chloride 96 mmol/L (98-107); Globulin 3.9 g/dL (1.3-4.6); Glomerular Filtration Rate 23.3 mL/min (90-130); Glucose 99 mg/dL (65-115); Osmolality Calculated 296 mOsm/kg (285-295); Potassium 3.8 mmol/L (3.5-5.1); Sodium 132 mmol/L (136-145); Thyroid Stimulating Hormone 0.49 uIU/mL (0.27-4.20); Total Bilirubin 1.1 mg/dL (0.15-1.2); Total Protein 7.1 g/dL (6.6-8.7)
--- NOTE | 2020-10-06 21:40 | P.HP_ITS ---
Providers/Chief Complaint Primary Care Provider: SHARON Zambrano Chief Complaint: GEN NOT FEELING WELL History of Present Illness Odilia Ulloa is a 69 year old female who has significant past medical history of coronary disease status post multiple stents, in-stent restenosis, bare-metal stent, [place] mitral valve atrial fibrillation post pericardiectomy syndrome sleep apne, presented to the hospital with chief complaint of altered mental status and generalized weakness. brought her to the hospital because of generalized weakness. Patient is not a good historian but she is endorsing that she is not sure why she is in the hospital. She has not followed up with orthopedic surgeon after her right arm fracture, she is also not willing to use right extremity splint as well. She is endorsing diarrhea for last few days, not associate with fever, vomiting, dysuria. She is endorsing poor p.o. intake. At home she is also taking Lasix and dose was increased in March 17. We will try to get hold of her who is not answering his phone. Diagnosis in the ER revealed hypotension, EFRAIN, subtherapeutic INR, abnormal transaminases, low normal glucose, no signs of UTI, chest x-ray shows signs of aspiration pneumonitis, she has received 1 L normal saline in the ER Review of Systems Const: Reports: chills, body aches, change in appetite, change in weight, fatigue and malaise; Denies: fever(s) Eyes: Denies: change in vision ENMT: Denies: throat pain Card: Reports: dyspnea on exertion; Denies: chest pain, swelling of feet/ankles or orthopnea Resp: Denies: dyspnea GI: Reports: diarrhea : Denies: flank pain Musc: Reports: limited range of motion and muscle cramps; Denies: joint warmth Skin/Breast: Reports: lesions Neuro: Reports: difficulty walking, frequent falls and confusion Psych: Reports: change in appetite, irritability and memory loss Endo: Denies: polyuria Guzman/Lymph: Denies: easy bruising All/Imm: Denies: urticaria Medications/Allergies Home Medications Medication Instructions Recorded Confirmed Last Taken Type warfarin 5 mg tablet 5 mg PO DAILY tab 10/31/19 10/06/20 Unknown History metoprolol tartrate 25 mg tablet 12.5 mg PO BID 11/07/19 10/06/20 06/03/20 History nitroglycerin 0.4 mg sublingual 0.4 mg SUBLINGUAL Q5M PRN 11/07/19 10/06/20 Unknown History tablet isosorbide dinitrate 30 mg tablet See Rx Instructions PO DAILY tab 11/19/19 10/06/20 06/03/20 History baclofen 10 mg tablet 10 mg PO DAILY #30 tab 12/08/19 10/06/20 06/03/20 Rx warfarin 1 mg tablet 1 mg PO DIRECTED 30 Days #30 tab 02/24/20 10/06/20 Unknown Rx warfarin 4 mg tablet 4 mg PO DAILY #30 tab 03/15/20 10/06/20 05/31/20 Rx furosemide 40 mg tablet 40 mg PO QAM #90 tab 06/07/20 10/06/20 Unknown Rx potassium chloride 20 mEq 20 meq PO DAILY #90 tab 06/07/20 10/06/20 Unknown Rx tablet,extended release warfarin 2 mg tablet 2 mg PO DAILY #30 tab 07/14/20 10/06/20 Unknown Rx warfarin 3 mg tablet 3 mg PO DAILY #30 tab 07/14/20 10/06/20 Unknown Rx tramadol 37.5 mg-acetaminophen 325 1 tab PO .hs PRN #30 tab 07/22/20 10/06/20 Unknown Rx mg tablet atorvastatin 40 mg tablet 40 mg PO DAILY #30 tab 07/26/20 10/06/20 Unknown Rx venlafaxine 150 mg 150 mg PO QAM #30 cap 08/24/20 10/06/20 Unknown Rx capsule,extended release 24 hr levothyroxine 75 mcg tablet 75 mcg PO DAILY 30 Days #30 tab 08/30/20 10/06/20 Unknown Rx pantoprazole 40 mg tablet,delayed 40 mg PO DAILY #30 tab 08/30/20 10/06/20 Unknown Rx release oxycodone-acetaminophen [Percocet] 1 tab PO Q6H PRN #14 tab 09/19/20 10/06/20 Unknown Rx hydrocodone-acetaminophen [[place]] 1 tab PO Q6H #10 tab 10/03/20 10/06/20 Unknown Rx amiodarone 400 mg tablet 400 mg PO DAILY #30 tab 10/04/20 10/06/20 Unknown Rx Allergies Allergy/AdvReac Type Severity Reaction Status Date / Time diltiazem [From Cardizem] Allergy Unknown Verified 07/22/20 11:35 morphine Allergy Unknown Verified 07/22/20 11:35 PFSH Acute PFSH: Medical History Anemia in chronic illness Back pain with risk for osteoporosis CAD (coronary artery disease) CHF (congestive heart failure) Chronic atrial fibrillation Chronic constipation Chronic neck and back pain CKD (chronic kidney disease) stage 2, GFR 60-89 ml/min Enrolled in chronic care management GERD (gastroesophageal reflux disease) Hyperlipidemia Hypertension Hypothyroid Insomnia Memory impairment of gradual onset Surgical History H/O section Mitral valve replaced valve replacement 1994 S/P cholecystectomy Family History Other CAD (coronary artery disease) Diabetes Social History (Updated 10/06/20 @ 22:26 by Dustin Brown MD) Smoking and tobacco status: never smoked Alcohol intake: never Substance/Drug Use: never Household members: spouse Housing: House Female Reproductive History: Para: 1 Vitals/I&O/Wt Last Vital Signs Temp 97.9 F 10/06/20 18:06 Pulse 85 10/06/20 18:39 Resp 18 10/06/20 18:39 BP 95/48 10/06/20 18:39 Pulse Ox 93 10/06/20 18:39 Weight last 48 hrs Weight 81.193 kg Physical Exam Narrative: EXAM NARRATIVE: Extremely dehydrated elderly female laying in her bed Saturating well on room air Dry buccal mucous membranes Left eye ptosis noted otherwise EOMI and PERRLA Able to follow my commands S1, S2 variable, clinically looks dehydrated, systolic murmur Abdomen soft, nontender bowel sound present No acute respiratory distress Lower extremity no edema gangrene or ulcer Irritable mood Metabolic encephalopathy, short attention span, she is able to tell me that she is in some part of the hospital, she is able to tell me her date of and name of her Dry cracked lips Data : 10/06/20 19:43 10/06/20 19:43 A&P Assessment and plan (1) EFRAIN (acute kidney injury): Status: Acute (2) Severe dehydration: Status: Acute (3) Metabolic encephalopathy: Status: Acute Additional A&P Information Metabolic encephalopathy encephalopathy is most likely secondary to uremia and dehydration, abnormal UA with positive leukocyte esterase negative nitrite pyuria noted, Short attention span noted otherwise verbally redirectable Left eye ptosis Obtain CT head without contrast, add ceftriaxone for possible UTI follow-up with urine culture D5 normal saline fluid maintenance rate, blood sugar 99 mg/dL Acute on chronic kidney disease stage II This is secondary to severe dehydration, I would hold Lasix and muscle relaxants and opioids Anticipating improvement with fluid resuscitationPatient not endorsing signs of UTI Preserved ejection fraction heart failure: No acute decompensation Atrial fibrillation: No acute decompensation I would hold amiodarone and atorvastatin secondary to abnormal transaminases Patient has bare-metal stent, [place] mitral valve, continue Coumadin she has subtherapeutic INR, we adjust Coumadin dose according to INR Cognitive impairment: I do believe she has acute delirium with underlying cognitive impairment and the cause is dehydration with possible UTI at this time, kindly readdress her medications on discharge she has polypharmacy considering her age and cognitive impairment Full code Cardiac diet DVT prophylaxis not indicated she is on Coumadin Attestations Medical Necessity Statement*: Anticipating discharge in less than 48 hours continued IV fluid resuscitation for severe dehydration and EFRAIN Time Spent in Patient Care: (>than 50% of time spent in counselling and/or direct pt care on unit) . 50mins Coding Level of Care Code Acute Promotional Marketing Analyst for [employer]ra Carmona Diagnoses EFRAIN (acute kidney injury) N17.9 Severe dehydration E86.0 Metabolic encephalopathy G93.41
--- NOTE | 2020-10-06 22:39 | CTR_ITS ---
PROCEDURE INFORMATION: Exam: CT Head Without Contrast Exam date and time: 10/06/2020 10:40 PM Age: 69 years old Clinical indication: Malaise or fatigue; Patient HX: General maliase. Recent fall. ; Additional info: Ptosis TECHNIQUE: Imaging protocol: Computed tomography of the head without contrast. Radiation optimization: All CT scans at this facility use at least one of these dose optimization techniques: automated exposure control; mA and/or kV adjustment per patient size (includes targeted exams where dose is matched to clinical indication); or iterative reconstruction. 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 Cerebral and cerebellar atrophy greater than that anticipated for the patient's chronological age. No evidence of active or acute intracranial pathologic process, hemorrhage, or trauma. No visible evidence of diffuse cerebral edema or generalized demyelination. No visible mass effect. No midline shift. Mild cerebellar tonsillar invagination. Cerebral ventricles: Ventriculomegaly out of proportion to the atrophic changes present. Thinning of the corpus callosum. Consideration should be given to the diagnosis of normal pressure hydrocephalus. Bones/joints: Unremarkable. No acute fracture. Paranasal sinuses: Visualized sinuses are unremarkable. No fluid levels. Mastoid air cells: Visualized mastoid air cells are well aerated. Soft tissues: Unremarkable. CT/CT head wo con* [id number] IMPRESSION: 1. No evidence of active or acute intracranial pathologic process, hemorrhage, or trauma. 2. Ventriculomegaly out of proportion to the atrophic changes present. Thinning of the corpus callosum. Consideration should be given to the diagnosis of normal pressure hydrocephalus. Radiation Dose CTDIVOL = (mGy): DLP = 2093.09 (mGy-cm)
[2020-10-07] VITALS (7 sets, daily range): BP systolic 106–125; BP diastolic 64–75; PULSE 80–100; RESP 18–22; TEMP 36.6–36.8; O2SAT 90–94
[2020-10-07] MEDS: HYDROcodone-acetaminophen 5-325 mg Tablet 1 TAB PO ×3 (01:13→12:49)
[2020-10-07] MEDS: dextrose 5%-sod chloride 0.9% 1,000 ML 75 ML IV ×2 (01:13→13:39)
[2020-10-07] MEDS: cefTRIAXone 1,000 MG in sodium chloride 0.9% (plus) 50 ML 100 MG IV (01:14)
[2020-10-07 01:23] LABS: Thyroid Stimulating Hormone 0.49 uIU/mL (0.27-4.20)
[2020-10-07 05:29] LABS: Basophils % 0.3 %; Eosinophils # 0.2 10^3/uL (0.0-0.8); Eosinophils % 1.4 %; Hemoglobin 8.8 g/dL (11.5-15.3); Lymphocytes # 0.7 10^3/uL (0.8-4.8); Lymphocytes % 7.1 %; Mean Corpuscular HGB Conc 30.3 g/dL (30.0-36.0); Mean Corpuscular Hemoglobin 26.2 pg (28.0-34.0); Mean Corpuscular Volume 86.3 fL (81-99); Mean Platelet Volume 10.1 fL (7.4-10.4); Monocytes % 9.3 %; Neutrophils # 8.45 10^3/uL (1.8-7.7); Neutrophils % 81.5 %; Nucleated Red Blood Cells % 0 %; Platelet Count 645 10^3/cmm (130-400); Red Blood Count 3.36 10^6/uL (4.1-5.3); Red Cell Distribution Width 19.9 % (12.1-15.1); White Blood Count 10.4 10^3/uL (4.0-10.0)
[2020-10-07 05:47] LABS: INR 1.75 (0.8-1.2)
[2020-10-07 05:54] LABS: Blood Urea Nitrogen 61 mg/dL (8-23); Calcium 8.6 mg/dL (8.5-10.5); Carbon Dioxide 19 mmol/L (22-29); Chloride 103 mmol/L (98-107); Glomerular Filtration Rate 29.7 mL/min (90-130); Glucose 401 mg/dL (65-115); Osmolality Calculated 308 mOsm/kg (285-295); Sodium 132 mmol/L (136-145)
[2020-10-07] MEDS: warfarin 5 mg Tablet PO (08:30)
[2020-10-07] MEDS: metoprolol tartrate 25 mg Tablet 12.5 MG PO ×2 (08:30→18:06)
[2020-10-07] MEDS: levothyroxine 150 mcg Tablet 75 MCG PO (08:31)
--- NOTE | 2020-10-07 11:00 | PC.CHAP ---
Pastoral Care Encounter/Spiritual Assessment Type of Contact [] Declined multiple coil winder visit [] Patient/Family/Request visit [] Outpatient visit [x] Follow-up visit [] Physician referral [] Code/Alert [] Routine visit [] Staff referral [] Actively dying [] Patient sleeping [] Family support [] [] Out of room [] Palliative care [] [] Receiving care in room [] Pre-surgical visit [] Trauma [] Long length of stay [] ICU visit [] Other: Relational/Emotional Strength [] Patient feels connected with others/family/visitors/staff [] Distress [] Loneliness/isolation [] Abandonment Spirituality of Patient [] Person of Migdalia [] Attends Sabianism of their Migdalia [] Believes in Prayer [] Reads Bible or Mormonism materials [] There are Spiritual issues to be addressed Automobile Detailer Interventions [] Prayer [] Active listening [] Non-anxious presence [] Spiritual/emotional support [] Crisis/trauma care [] Spiritual counseling [] Bereavement support [] Provided bereavement packet [] Provided Bible/devotional materials [] Provided toy/stuffed animal, coloring book to patient or family member [] Provided Communion [] Anointing/[place] [] Salvation [] Completed spiritual assessment [] Other: Impact on Illness or Injury [] Angry [] Fearful [] Anxious [] Often cries [] Exhaustion [] Unable to work [] Unable to attend synagogue [] Unable to walk/stand [] Unable to read [] Unable to drive [] Unable to eat/drink [] Unable to sleep [] Unable to be with family [] Patient intubated [] Other: Summary Follow-up visit Time spent with patient 5 mins
--- NOTE | 2020-10-07 17:31 | P.PN_ITS ---
Subjective Subjective: Interval history: Overnight labs and H&P reviewed. No acute events today. On exan today appears to be tachypneic while laying in bed. Medications: Reviewed: Yes Vitals/I&O/Wt Last Vital Signs Temp 98.3 F 10/07/20 16:00 Pulse 90 10/07/20 16:00 Resp 18 10/07/20 16:00 BP 107/69 10/07/20 16:00 Pulse Ox 93 10/07/20 16:00 10/07/20 10/07/20 10/07/20 06:59 14:59 22:59 Intake Total 932.5 / 932.5 Balance 932.5 / 932.5 Weight last 48 hrs Weight 81.193 kg Physical Exam Narrative: EXAM NARRATIVE: GEN: Awake, alert, appears to be confused and disoriented, no acute distress, lying in bed , mildly tachypneic on exam CVS: S1S2 N RS: CTA B/L Abd: Soft, nt/nd , bs+ TRANSACTION PROCESSOR: no focal neuro deficits Data : 10/07/20 04:34 10/07/20 04:34 Micro: Microbiology 10/06/20 19:10 Urine Culture - Preliminary Urine,Clean Catch Gram Negative Rods A&P Assessment and plan (1) EFRAIN (acute kidney injury): Status: Acute (2) Severe dehydration: Status: Acute (3) Metabolic encephalopathy: Status: Acute Additional A&P Information Altered mental status Appears to be multifactorial, unknown past baseline, may be secondary to UTI given abnormal UA with positive leukocyte esterase negative nitrite pyuria noted Urine cx with GNR pending identification Also possible that normal pressure hydrocehalus may be contributing as CT notes ventriculomegaly out of proportion to cerebral atrophy, will need outpatient neurology/neurosurgery evaluation for the same. Left eye ptosis, known if pre existing, will check with significant other Acute on chronic kidney disease stage II This is secondary to severe dehydration, continue to hold diuretics, however discontinue IVF today, encourage oral hydration. Preserved ejection fraction heart failure: currently euvolemic Atrial fibrillation: currently rate controlled, amiodraone on hold due to deranged LFTs, recheck with morning labs, may be secondary to dehydration, if trending down, to resume amiodarone. Continue Coumadin Cognitive impairment: will attempt to establish baseline with significant other Humerus fracture at least since 09/28, orthopedics consult as inpatient , continue arm in sling until then Full code Cardiac diet DVT prophylaxis not indicated she is on Coumadin Attestations Medical Necessity Statement*: acute delirium, peristsing confusion, empiric iv abx, careful monitoing of volume status prior to resuming diuretics. Coding Level of Care Code Acute Wood Crew Supervisor for [employer] Diagnoses EFRAIN (acute kidney injury) N17.9 Severe dehydration E86.0 Metabolic encephalopathy G93.41
[2020-10-07 21:40] LABS: Glucose Point of Care 140 mg/dL (70-110)
[2020-10-08] VITALS: BP 109/70; PULSE 96; RESP 17; TEMP 36.8; O2SAT 91
[2020-10-08] MEDS: cefTRIAXone 1,000 MG in sodium chloride 0.9% (plus) 50 ML 100 MG IV (01:06)
[2020-10-08 04:00] VITALS: BP 109/61; PULSE 96; RESP 18; TEMP 37.1; O2SAT 91
[2020-10-08 07:43] VITALS: BP 132/80; PULSE 97; RESP 17; TEMP 37.3; O2SAT 93
[2020-10-08] MEDS: levothyroxine 150 mcg Tablet 75 MCG PO (08:26)
[2020-10-08] MEDS: warfarin 5 mg Tablet PO (08:27)
[2020-10-08] MEDS: metoprolol tartrate 25 mg Tablet 12.5 MG PO ×2 (08:28→17:49)
[2020-10-08 11:03] VITALS: BP 107/77; PULSE 94; RESP 16; TEMP 36.9; O2SAT 94
[2020-10-08 15:07] VITALS: BP 115/74; PULSE 91; RESP 17; TEMP 36.8; O2SAT 96
[2020-10-08 20:00] VITALS: BP 112/72; PULSE 88; RESP 18; TEMP 36.6; O2SAT 95
--- NOTE | 2020-10-08 21:29 | P.PN_ITS ---
Subjective Subjective: Interval history: continued to be confused this morning, noted to be verbally abusive towards nursing staff. No c/o pain at this time Medications: Reviewed: Yes Vitals/I&O/Wt Last Vital Signs Temp 97.9 F 10/08/20 20:00 Pulse 88 10/08/20 20:00 Resp 18 10/08/20 20:00 BP 112/72 10/08/20 20:00 Pulse Ox 95 10/08/20 20:00 10/08/20 10/08/20 10/08/20 06:59 14:59 22:59 Intake Total 1000 / 1932.5 240 / 240 Balance 1000 / 1682.5 240 / 240 Physical Exam Narrative: EXAM NARRATIVE: GEN: Awake, alert, confused CVS: S1S2 N RS: CTA B/L Abd: Soft, nt/nd , bs+ PERINATAL BREASTFEEDING ASSISTANT: no focal neuro deficits Data : 10/07/20 04:34 10/07/20 04:34 Micro: Microbiology 10/06/20 19:10 Urine Culture - Final Urine,Clean Catch Escherichia coli A&P Assessment and plan (1) EFRAIN (acute kidney injury): Status: Acute (2) Severe dehydration: Status: Acute (3) Metabolic encephalopathy: Status: Acute (4) Normal pressure hydrocephalus: Status: Acute (5) Fracture of proximal humerus: Status: Acute Qualifiers: Encounter type: subsequent encounter Fracture alignment: displaced Fracture type: closed Laterality: right (6) CHF (congestive heart failure): Status: Acute Qualifiers: Heart failure type: diastolic Heart failure chronicity: chronic Qualified Code(s): I50.32 - Chronic diastolic (congestive) heart failure (7) Chronic atrial fibrillation: Status: Acute Additional A&P Information Altered mental status Appears to be multifactorial, unknown past baseline, may be secondary to UTI given abnormal UA with positive leukocyte esterase negative nitrite pyuria noted Urine cx identified now as kenney-S E.coli Also possible that normal pressure hydrocehalus may be contributing as CT notes ventriculomegaly out of proportion to cerebral atrophy, will need outpatient neurology/neurosurgery evaluation for the same. Still with persisting confusion noted this morning Acute on chronic kidney disease stage II This is likely secondary to severe dehydration, continue to hold diuretics, Improved from 2 --> 1.7 encourage oral hydration/po intake . Preserved ejection fraction heart failure: currently euvolemic , will resume diuretics if renal function remains stable Atrial fibrillation: currently rate controlled, amiodraone on hold due to deranged LFTs, recheck with morning labs, may be secondary to dehydration, if trending down, to resume amiodarone. Continue Coumadin Cognitive impairment: may be longstanding due to Humerus fracture: awaiting orthopedic assessment Full code Cardiac diet DVT prophylaxis : currently on Coumadin Attestations Medical Necessity Statement*: need for iv abx, persisting confusion, monitor renal and liver function, need to resume medications dependent on results Coding Level of Care Code Acute Striper for [facility] Fwd Diagnoses EFRAIN (acute kidney injury) N17.9 Severe dehydration E86.0 Metabolic encephalopathy G93.41 Normal pressure hydrocephalus G91.2 Fracture of proximal humerus S42.209A Encounter type: subsequent encounter Fracture alignment: displaced Fracture type: closed Laterality: right CHF (congestive heart failure) I50.32 Heart failure type: diastolic Heart failure chronicity: chronic Chronic atrial fibrillation I48.20
[2020-10-09] VITALS (7 sets, daily range): BP systolic 103–129; BP diastolic 66–89; PULSE 86–111; RESP 16–20; TEMP 36.2–37; O2SAT 93–96
[2020-10-09] MEDS: cefTRIAXone 1,000 MG in sodium chloride 0.9% (plus) 50 ML 100 MG IV (00:47)
[2020-10-09] MEDS: venlafaxine ER (24HR) 150 mg Capsule PO (06:27)
[2020-10-09] MEDS: FUROsemide 40 mg Tablet PO (06:27)
[2020-10-09 06:42] LABS: Basophils # 0.1 10^3/uL (0.0-0.1); Basophils % 0.4 %; Eosinophils # 0.1 10^3/uL (0.0-0.8); Eosinophils % 0.6 %; Hematocrit 30.1 % (37.0-47.0); Hemoglobin 9.5 g/dL (11.5-15.3); Lymphocytes # 0.9 10^3/uL (0.8-4.8); Lymphocytes % 7.2 %; Mean Corpuscular HGB Conc 31.6 g/dL (30.0-36.0); Mean Corpuscular Hemoglobin 26.5 pg (28.0-34.0); Mean Corpuscular Volume 83.8 fL (81-99); Mean Platelet Volume 10.1 fL (7.4-10.4); Monocytes # 1.4 10^3/uL (0.2-0.9); Monocytes % 11.6 %; Neutrophils # 9.76 10^3/uL (1.8-7.7); Neutrophils % 79.4 %; Nucleated Red Blood Cells % 0 %; Platelet Count 555 10^3/cmm (130-400); Red Blood Count 3.59 10^6/uL (4.1-5.3); White Blood Count 12.3 10^3/uL (4.0-10.0)
[2020-10-09 06:53] LABS: INR 2.54 (0.8-1.2)
[2020-10-09 07:01] LABS: Alanine Aminotransferase 77 U/L (0-33); Albumin Level 2.7 g/dL (3.5-5.2); Alkaline Phosphatase 178 IU/L (35-105); Anion Gap 13.9 (5-19); Aspartate Amino Transferase 80 U/L (0-32); Blood Urea Nitrogen 65 mg/dL (8-23); Calcium 10.5 mg/dL (8.5-10.5); Carbon Dioxide 25 mmol/L (22-29); Chloride 98 mmol/L (98-107); Globulin 4.3 g/dL (1.3-4.6); Glucose 99 mg/dL (65-115); Osmolality Calculated 295 mOsm/kg (285-295); Potassium 3.9 mmol/L (3.5-5.1); Sodium 133 mmol/L (136-145); Total Bilirubin 0.9 mg/dL (0.15-1.2)
[2020-10-09] MEDS: levothyroxine 150 mcg Tablet 75 MCG PO (09:20)
[2020-10-09] MEDS: atorvastatin 40 mg Tablet PO (09:21)
[2020-10-09] MEDS: metoprolol tartrate 25 mg Tablet 12.5 MG PO ×2 (09:21→18:06)
[2020-10-09] MEDS: pantoprazole DR 40 mg Tablet PO (09:21)
[2020-10-09] MEDS: warfarin 5 mg Tablet PO (09:22)
[2020-10-09 12:53] LABS: Urine Appearance Cloudy (CLEAR); Urine Color Yellow (Yellow); pH Urine 5 (5-7)
[2020-10-09 12:54] LABS: Add Urine Microscopic? YES; Bilirubin Urine Neg (Negative); Blood Urine 2+ (Negative); Glucose Urine UA Norm (Normal); Ketones Urine Negative (Negative); Leukocyte Esterase Urine 2+ (Negative); Nitrate Urine Positive (Negative); Protein Urine Trace (Negative); Urobilinogen Urine Norm (Negative)
[2020-10-09 13:07] LABS: WBC Urine TOO NUMEROUS TO CNT /hpf (0-5)
[2020-10-09 13:08] LABS: Add Urine Culture? Yes; Bacteria Urine 4+ /hpf
--- NOTE | 2020-10-09 15:47 | CTR_ITS ---
PROCEDURE INFORMATION: Exam: CT Abdomen And Pelvis Without Contrast Exam date and time: 10/09/2020 3:52 PM Age: 69 years old Clinical indication: Abnormal findings; Abnormal lab test; Abnormal kidney function lab tests; Prior surgery; Surgery date: 6+ months; Surgery type: Gb; Patient HX: Rising creatnine; Additional info: Rising CR, transaminitis TECHNIQUE: Imaging protocol: Computed tomography of the abdomen and pelvis without contrast. Radiation optimization: All CT scans at this facility use at least one of these dose optimization techniques: automated exposure control; mA and/or kV adjustment per patient size (includes targeted exams where dose is matched to clinical indication); or iterative reconstruction. COMPARISON: CT abdomen pelvis w con* [id number] 09/11/2018 12:19 PM RADIATION DOSE METRICS: Total DLP (mGy-cm): 963.4 FINDINGS: Lungs: Streaky densities at the lung bases are most consistent with scarring and/or atelectasis. There are ground-glass opacities at the lung bases. Mediastinal space: There are post sternotomy changes and postoperative changes in the anterior mediastinum. Small hiatal hernia. Liver: Normal. No mass. Gallbladder and bile ducts: The gallbladder has been removed. There are subcentimeter bilateral renal cysts with benign features the larger of which measures 6 mm in the left kidney. Follow-up is not necessary. Pancreas: Normal. No ductal dilation. Spleen: Normal. No splenomegaly. Adrenal glands: Normal. No mass. Kidneys and ureters: See Gallbladder and bile ducts finding. Stomach and bowel: Colonic constipation is present. Appendix: No evidence of appendicitis. Intraperitoneal space: Unremarkable. No free air. No significant fluid collection. Vasculature: Multivessel atherosclerotic disease which involves the coronary arteries. Lymph nodes: Unremarkable. No enlarged lymph nodes. Urinary bladder: There is a Perera catheter and air in the bladder. Bladder wall is collapsed about the catheter and not optimally evaluated. There is mild hazy stranding in the pericystic fat. Reproductive: Unremarkable as visualized. Bones/joints: Chronic T12 compression deformity. There are degenerative changes in the visualized spine. Soft tissues: Unremarkable. CT/CT abdomen pelvis wo con [id number] IMPRESSION: 1. Mild hazy stranding in the fat surrounding the bladder raises concern for acute cystitis. Please correlate clinically. 2. Colonic constipation is present. COMMENTS: Consistent with the [employer]'s Incidental Findings Committee white paper (J Am Ton Radiol 2018): Any incidental renal lesion less than 1 cm or classified as too small to characterize, or any incidental cystic renal lesion characterized as simple-appearing, is likely benign. No follow-up imaging is recommended for these lesions per consensus recommendations based on imaging criteria. Radiation Dose CTDIVOL = (mGy): DLP = 963.4 (mGy-cm)
--- NOTE | 2020-10-09 15:58 | P.PN_ITS ---
Subjective Subjective: Interval history: Patient was seen and examined earlier this morning at which time she was noted to have a palpable bladder wall up to the level of the umbilicus. She did not have any complaints. A Guardado was inserted at this time which returned with 3 L of urine with thick debris and initially was pyuria appearing. Cath was clamped briefly for a few minutes and then an other 2 L drained. Urine is tending to become clear since then. Creatinine trended up to 2.3 today. 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: no focal neuro deficits Urinary Catheter Management^: Guardado Latex Free: Cath Placed During This Visit: yes Urinary Catheter Date of Insertion: 10/09/20 Urinary Catheter Time of Insertion: 10:57 Data : 10/09/20 05:57 10/09/20 05:57 A&P Assessment and plan (1) EFRAIN (acute kidney injury): Status: Acute (2) Severe dehydration: Status: Acute (3) Metabolic encephalopathy: Status: Acute (4) Normal pressure hydrocephalus: Status: Acute (5) Fracture of proximal humerus: Status: Acute Qualifiers: Encounter type: subsequent encounter Fracture alignment: displaced Fracture type: closed Laterality: right (6) CHF (congestive heart failure): Status: Acute Qualifiers: Heart failure type: diastolic Heart failure chronicity: chronic Qualified Code(s): I50.32 - Chronic diastolic (congestive) heart failure (7) Chronic atrial fibrillation: Status: Acute Additional A&P Information Altered mental status Appears to be multifactorial, unknown past baseline, may be secondary to UTI given abnormal UA with positive leukocyte esterase negative nitrite pyuria noted Urine cx identified now as kenney-S E.coli check blood cx Also possible that normal pressure hydrocehalus may be contributing as CT notes ventriculomegaly out of proportion to cerebral atrophy, will need outpatient neurology/neurosurgery evaluation for the same. oriented x 2 today, appears to be more aware of her surroundings. Unable to get a good assessment of baseline. Her life partner has been calling to get updates, however unceratin of his cognitive ability as he seems to forget patient is admitted here, forgets updates, was asking for discharge medication scripts beleieving patient is at home. Acute on chronic kidney disease stage II cr had improved somehwat with hydration, however now back up at 2.3 Bladder palpable well above level of umblicus, guardado placed, drained at least 3L urine immediately which was foul smelling and appeared to be pyuria Ct abdomen/pelvis to evalaute for urinary tract obstrcution, also concern for same given leukocytosis mildly increased to 12 in apite of appropriate abx Preserved ejection fraction heart failure: appears dry again today, had resumed po lasix today but with trending up cr and patient's dry mucus memebrane, beleive she is again dehydrated. Started on gentle fluids NS @ 50cc/hr. Atrial fibrillation: currently rate controlled, amiodraone on hold due to deranged LFTs at admission, npw trending down, resume amiodarone at 200mg po qd. Start tele monitoring as tachycardic today. Increase metoprolol from 12.5mg BID to 25mg po BID Cognitive impairment: may be longstanding Humerus fracture: arm in asling for now, will be unable to be cleared for surgery currently, will consult orthopedics once medically improving Full code Cardiac diet DVT prophylaxis : currently on Coumadin, INR 2.5 Attestations Medical Necessity Statement*: UTI needing iv abx, gross urinary retention. 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
[2020-10-09] MEDS: amiodarone 200 mg Tablet PO (16:50)
[2020-10-09] MEDS: HYDROcodone-acetaminophen 5-325 mg Tablet 1 TAB PO (16:50)
[2020-10-09] MEDS: sodium chloride 0.9% 1,000 ML 50 ML IV (16:51)
[2020-10-10] VITALS (8 sets, daily range): BP systolic 100–112; BP diastolic 59–76; PULSE 79–137; RESP 17–20; TEMP 36.4–36.7; O2SAT 90–97
[2020-10-10] MEDS: cefTRIAXone 1,000 MG in sodium chloride 0.9% (plus) 50 ML 100 MG IV ×2 (01:54→23:16)
[2020-10-10 05:45] LABS: Basophils % 0.5 %; Eosinophils # 0.2 10^3/uL (0.0-0.8); Eosinophils % 2.7 %; Hematocrit 23.9 % (37.0-47.0); Hemoglobin 7.6 g/dL (11.5-15.3); Lymphocytes # 0.9 10^3/uL (0.8-4.8); Lymphocytes % 12.6 %; Mean Corpuscular HGB Conc 31.8 g/dL (30.0-36.0); Mean Corpuscular Hemoglobin 26.7 pg (28.0-34.0); Mean Corpuscular Volume 83.9 fL (81-99); Mean Platelet Volume 9.9 fL (7.4-10.4); Monocytes # 0.9 10^3/uL (0.2-0.9); Monocytes % 11.5 %; Neutrophils # 5.39 10^3/uL (1.8-7.7); Nucleated Red Blood Cells % 0 %; Platelet Count 449 10^3/cmm (130-400); Red Blood Count 2.85 10^6/uL (4.1-5.3); Red Cell Distribution Width 19.9 % (12.1-15.1); White Blood Count 7.5 10^3/uL (4.0-10.0)
[2020-10-10 06:02] LABS: INR 3.65 (0.8-1.2)
[2020-10-10 06:03] LABS: Alanine Aminotransferase 51 U/L (0-33); Albumin Level 2.2 g/dL (3.5-5.2); Alkaline Phosphatase 140 IU/L (35-105); Aspartate Amino Transferase 57 U/L (0-32); Blood Urea Nitrogen 39 mg/dL (8-23); Calcium 9.1 mg/dL (8.5-10.5); Carbon Dioxide 26 mmol/L (22-29); Chloride 105 mmol/L (98-107); Globulin 3.6 g/dL (1.3-4.6); Glomerular Filtration Rate 49.1 mL/min (90-130); Glucose 75 mg/dL (65-115); Osmolality Calculated 296 mOsm/kg (285-295); Sodium 139 mmol/L (136-145); Total Bilirubin 0.5 mg/dL (0.15-1.2); Total Protein 5.8 g/dL (6.6-8.7)
[2020-10-10] MEDS: venlafaxine ER (24HR) 150 mg Capsule PO (06:27)
[2020-10-10] MEDS: pantoprazole DR 40 mg Tablet PO (09:03)
[2020-10-10] MEDS: warfarin 5 mg Tablet PO (09:03)
[2020-10-10] MEDS: metoprolol tartrate 25 mg Tablet 12.5 MG PO (09:05)
[2020-10-10] MEDS: levothyroxine 150 mcg Tablet 75 MCG PO (09:06)
[2020-10-10] MEDS: HYDROcodone-acetaminophen 5-325 mg Tablet 1 TAB PO ×2 (09:09→23:15)
--- NOTE | 2020-10-10 09:46 | PM.PN ---
Subjective Subjective: Interval history: Leukocytosis improving today from 12.3-7.5, hemoglobin dropped 9.5-7.6 no active bleeding noted by patient, has not had a bowel movement in the last 2 days. Creatinine improved from 2.3-1.1 likely due to relief urinary obstruction, LFTs improving AST 80-57, ALT 77-51 today, no acute events on telemetry. 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: no focal neuro deficits Urinary Catheter Management^: Perera Latex Free: Cath Placed During This Visit: yes Reason for Continuing Indwelling Catheter: Acute Urinary Retention or Obstruction Urinary Catheter Date of Insertion: 10/09/20 Urinary Catheter Time of Insertion: 10:57 Data : 10/10/20 05:15 10/10/20 05:15 Micro: Microbiology 10/09/20 10:46 Urine Culture - Preliminary Urine,Clean Catch Gram Negative Rods 10/09/20 17:05 Blood Culture - Preliminary Blood SPECIMEN COLLECTED 10/09/20 17:05 Blood Culture - Preliminary Blood SPECIMEN COLLECTED A&P Assessment and plan (1) EFRAIN (acute kidney injury): Status: Acute (2) Severe dehydration: Status: Acute (3) Metabolic encephalopathy: Status: Acute (4) Normal pressure hydrocephalus: Status: Acute (5) Fracture of proximal humerus: Status: Acute Qualifiers: Encounter type: subsequent encounter Fracture alignment: displaced Fracture type: closed Laterality: right (6) CHF (congestive heart failure): Status: Acute Qualifiers: Heart failure chronicity: chronic Heart failure type: diastolic Qualified Code(s): I50.32 - Chronic diastolic (congestive) heart failure (7) Chronic atrial fibrillation: Status: Acute (8) Hypokalemia: Status: Acute (9) Anemia: Status: Acute (10) Supratherapeutic INR: Status: Acute (11) Acute cystitis: Status: Acute (12) Urinary retention with incomplete bladder emptying: Status: Acute Additional A&P Information 69-year-old lady with a past medical history of coronary artery disease status post multiple stents, [facility] mitral valve, atrial fibrillation, sleep apnea admitted to the hospital since 10/06 for altered mental status and UTI. # Altered mental status Appears to be multifactorial, unknown past baseline, may be secondary to UTI given abnormal UA and + urine cx Urine cx identified now as kenney-S E.coli , on appropriate rx with ceftriaxone blood cx negative thus far Also possible that normal pressure hydrocephalus may be contributing as CT notes ventriculomegaly out of proportion to cerebral atrophy, will need outpatient neurology/neurosurgery evaluation for the same. Unknown chronicity. Unable to get a good assessment of baseline as life partner is poor historian. # Acute cystitis : on appropriate abx treatment. #Acute on chronic kidney disease stage II Noted to have acute urinary retention on 10/09 along with a creatinine increased from 1.7-2.3. Placement of Perera catheter drained 3 L of urine at least immediately after placement and an additional 2 L within the next 30 minutes. Creatinine is improving after relief of the urinary obstruction, now down to 1.1. Leukocytosis has also resolved with relief of the obstruction. CT abdomen and pelvis that was performed yesterday did not reveal any obstructive uropathy along the course. #Anemia noted on labs today, hemoglobin down to 7.6 from 9.5 previously. Given also reduced WBC and reduced platelet over the past 2 days this could represent initial hemoconcentration, now improving with fluids. However patient is on Coumadin with supratherapeutic INR today therefore will exclude any GI bleeding. Occult blood ordered for the same. No other bleeding noted at any other site. CT abdomen pelvis without any evidence of hematomas. check iron and b12 studies #Supratherapeutic INR, patient currently on Coumadin 5 mg daily with INR today at 3.5. Hold Coumadin, repeat INR in the a.m. #Preserved ejection fraction heart failure: #Atrial fibrillation: currently rate controlled, amiodraone on hold due to deranged LFTs at admission, npw trending down, resumeD amiodarone at 200mg po qd ON 10/09. Increase metoprolol from 12.5mg BID to 25mg po BID #Cognitive impairment: unknown chronicity #Humerus fracture: arm in a sling for now, fracture of surgical neck, will arrange for outpatient follow up with orthopedics. 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
[2020-10-10] MEDS: potassium chloride premix 100 ML 25 MEQ IV (11:14)
[2020-10-10] MEDS: amiodarone 200 mg Tablet PO (11:15)
[2020-10-10] MEDS: metoprolol tartrate 25 mg Tablet PO (18:07)
[2020-10-11] VITALS (10 sets, daily range): BP systolic 90–117; BP diastolic 58–74; PULSE 69–97; RESP 16–20; TEMP 36.3–36.9; O2SAT 93–97
[2020-10-11] MEDS: venlafaxine ER (24HR) 150 mg Capsule PO (05:06)
--- NOTE | 2020-10-11 05:27 | PC.NURSE ---
SHIFT SUMMARY Has done well tonight. Is confused but very pleasant. Yells out occ for things because she forgets to use call light. Drinks alot of water. Was medicated X1 with po Hydrocodone for c/o back and right arm pain. Had good relief with med. Right arm is in sling. IV infusing at 30ml/hr rate and receiving IV antibiotics
[2020-10-11 05:51] LABS: Basophils # 0.1 10^3/uL (0.0-0.1); Eosinophils # 0.3 10^3/uL (0.0-0.8); Eosinophils % 4.6 %; Hematocrit 23.9 % (37.0-47.0); Hemoglobin 7.5 g/dL (11.5-15.3); Lymphocytes # 1.2 10^3/uL (0.8-4.8); Lymphocytes % 20.4 %; Mean Corpuscular HGB Conc 31.4 g/dL (30.0-36.0); Mean Corpuscular Hemoglobin 26.1 pg (28.0-34.0); Mean Corpuscular Volume 83.3 fL (81-99); Mean Platelet Volume 9.8 fL (7.4-10.4); Monocytes # 0.7 10^3/uL (0.2-0.9); Monocytes % 12.2 %; Neutrophils # 3.56 10^3/uL (1.8-7.7); Neutrophils % 61.1 %; Nucleated Red Blood Cells % 0 %; Platelet Count 412 10^3/cmm (130-400); Red Blood Count 2.87 10^6/uL (4.1-5.3); White Blood Count 5.8 10^3/uL (4.0-10.0)
[2020-10-11 06:06] LABS: INR 3.89 (0.8-1.2)
[2020-10-11 06:30] LABS: Alanine Aminotransferase 47 U/L (0-33); Albumin Level 2.2 g/dL (3.5-5.2); Alkaline Phosphatase 133 IU/L (35-105); Anion Gap 9.7 (5-19); Aspartate Amino Transferase 57 U/L (0-32); Blood Urea Nitrogen 20 mg/dL (8-23); Calcium 8.6 mg/dL (8.5-10.5); Carbon Dioxide 25 mmol/L (22-29); Chloride 102 mmol/L (98-107); Globulin 3.2 g/dL (1.3-4.6); Glomerular Filtration Rate 98.8 mL/min (90-130); Glucose 92 mg/dL (65-115); Iron 30 ug/dL (37-145); Osmolality Calculated 278 mOsm/kg (285-295); Potassium 3.7 mmol/L (3.5-5.1); Sodium 133 mmol/L (136-145); Total Bilirubin 0.4 mg/dL (0.15-1.2); Total Protein 5.4 g/dL (6.6-8.7); Vitamin B12 907 pg/mL (232-1245)
[2020-10-11 07:16] LABS: Folate Level 5.5 ng/mL (4.8-37.3)
[2020-10-11] MEDS: pantoprazole DR 40 mg Tablet PO (08:13)
[2020-10-11] MEDS: metoprolol tartrate 25 mg Tablet PO ×2 (08:14→17:28)
[2020-10-11] MEDS: levothyroxine 150 mcg Tablet 75 MCG PO (08:14)
[2020-10-11] MEDS: amiodarone 200 mg Tablet PO (08:14)
--- NOTE | 2020-10-11 10:22 | P.PN_ITS ---
Subjective Subjective: Interval history: She is having some pain in her back and shoulder, otherwise is doing all right. She states that she fell at home. She states she is at [facility]. Names the year correctly as 2019. Says at home she lives with her , and says that they take care of each other, although he does have some memory issues. Vitals/I&O/Wt Last Vital Signs Temp 98.4 F 10/11/20 07:52 Pulse 89 10/11/20 07:52 Resp 20 H 10/11/20 07:52 BP 107/73 10/11/20 07:52 Pulse Ox 97 10/11/20 07:52 10/10/20 10/11/20 10/11/20 22:59 06:59 14:59 Intake Total 240 / 480 530 / 1010 240 / 240 Output Total 650 / 701 650 / 1351 Balance -410 / -221 -120 / -341 240 / 240 Physical Exam Const: COMMON NORMALS: no acute distress, patient oriented x3 and alert GENERAL APPEARANCE: cooperative ORIENTATION/CONSCIOUSNESS: Yes awake OTHER: In good spirits HENMT: COMMON NORMALS: oropharynx normal Neck/C-Spine: COMMON NORMALS: no JVD Resp: COMMON NORMALS: normal respiratory effort and clear to auscultation bilaterally AUSCULTATION: clear to auscultation bilaterally Cardio: COMMON NORMALS: no JVD, regular rhythm, S1 normal heart sound present, S2 normal heart sound present and No murmurs present (Cardio) RHYTHM: regular rhythm HEART SOUNDS: S1 normal heart sound present and S2 normal heart sound present GI: COMMON NORMALS: Normal to inspection, nondistended, normoactive bowel sounds present, Soft to palpation and non-tender PALPATION: Yes Soft to palpation Extremity: COMMON NORMALS: no joint enlargement and no pedal edema Neuro: COMMON NORMALS: patient oriented x3 and moves all extremities SENSORIUM/ORIENTATION: Yes alert Skin: COMMON NORMALS: no rashes or lesions noted GENERAL SKIN EXAM: no rashes or lesions noted Urinary Catheter Management^: Perera Latex Free: Cath Placed During This Visit: yes Reason for Continuing Indwelling Catheter: Acute Urinary Retention or Obstruction Urinary Catheter Date of Insertion: 10/09/20 Urinary Catheter Time of Insertion: 10:57 Data : 10/11/20 05:34 10/11/20 05:34 Micro: Microbiology 10/09/20 10:46 Urine Culture - Final Urine,Clean Catch Escherichia coli 10/09/20 17:05 Blood Culture - Preliminary Blood NEGATIVE TO DATE 10/09/20 17:05 Blood Culture - Preliminary Blood NEGATIVE TO DATE A&P Assessment and plan (1) Severe dehydration: Has been receiving gentle IV hydration. This appears to have improved. Will discontinue IV fluids. Status: Acute (2) Metabolic encephalopathy: This improved and appears to be perhaps resolved with treatment of UTI, with improvement in EFRAIN. She is alert and oriented x3. She is in good spirits. She reports that she and her take care of her child at home, although he does have some memory issues. She is interested in pursuing rehabilitation and more physical therapy. Needs additional assessment for NPH. Status: Acute (3) Acute cystitis: Pansensitive E. coli. On Rocephin. Status: Acute (4) Normal pressure hydrocephalus: Refer to neurology follow-up. Status: Acute (5) Anemia: Collect sample for Hemoccult. INR is supratherapeutic. Hemoglobin appears stabilized. She denies ever having upper or lower endoscopy. Discussed with her would benefit from additional assessment. B12 normal. Check MMA. Folate normal. Check iron panel. Status: Acute (6) Fracture of proximal humerus: Continue arm sling. Follow-up with orthopedics in office. Status: Inactive Qualifiers: Encounter type: subsequent encounter Fracture alignment: displaced Fracture type: closed Laterality: right (7) Supratherapeutic INR: Warfarin on hold. Recheck INR. Resume warfarin once back in therapeutic range. Status: Acute (8) Urinary retention with incomplete bladder emptying: Maintain Perera catheter. Follow-up with urology in office. Discussed with her. Status: Acute (9) EFRAIN (acute kidney injury): Resolved. Discussed with her. Status: Acute (10) Hypokalemia: Now normal. Status: Acute (11) Chronic atrial fibrillation: Continue amiodarone, metoporo, warfarin Status: Acute (12) CHF (congestive heart failure): Currently compensated. DC IVF. Cardiac diet. On Lasix. Status: Acute Qualifiers: Heart failure type: diastolic Heart failure chronicity: chronic Qualified Code(s): I50.32 - Chronic diastolic (congestive) heart failure (13) Constipation: Status: Acute Additional A&P Information Full code Cardiac diet DVT prophylaxis : currently on Coumadin Dispo: SNF placement, significantly deconditioned, fracture of dominant arm, will befit from skilled therapy Attestations Medical Necessity Statement*: Continue optimization of therapy for chronic CHF following episode of dehydration, acute kidney injury, assessment of anemia in the setting of anticoagulation, supratherapeutic INR, disposition arrangements. 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
[2020-10-11 11:23] LABS: Ferritin 191 ng/mL (15-150); Iron 32 ug/dL (37-145); Percent Saturation 18.1 % (20-50); Total Iron Binding Capacity 176 mcg/dl; Unsaturated Iron Binding 144 ug/dL (112-347)
--- NOTE | 2020-10-11 12:50 | DCPLANNER ---
Pg 2 of IM updated and reviewed with pt. 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 Copy provided.
[2020-10-11] MEDS: HYDROcodone-acetaminophen 5-325 mg Tablet 1 TAB PO (17:30)
[2020-10-11] MEDS: cefTRIAXone 1,000 MG in sodium chloride 0.9% (plus) 50 ML 100 MG IV (23:49)
[2020-10-12] VITALS (8 sets, daily range): BP systolic 105–120; BP diastolic 67–81; PULSE 78–94; RESP 18; TEMP 36.3–37.3; O2SAT 90–95
[2020-10-12] MEDS: potassium chloride ER 20 mEq Tablet 40 MEQ PO (02:04)
[2020-10-12 02:30] LABS: Basophils # 0.1 10^3/uL (0.0-0.1); Eosinophils # 0.3 10^3/uL (0.0-0.8); Eosinophils % 4.9 %; Hematocrit 26.4 % (37.0-47.0); Hemoglobin 8.4 g/dL (11.5-15.3); Lymphocytes # 1.4 10^3/uL (0.8-4.8); Lymphocytes % 22.7 %; Mean Corpuscular HGB Conc 31.8 g/dL (30.0-36.0); Mean Corpuscular Hemoglobin 26.4 pg (28.0-34.0); Mean Platelet Volume 9.4 fL (7.4-10.4); Monocytes # 0.7 10^3/uL (0.2-0.9); Monocytes % 12.2 %; Neutrophils # 3.53 10^3/uL (1.8-7.7); Neutrophils % 58.2 %; Nucleated Red Blood Cells % 0 %; Platelet Count 430 10^3/cmm (130-400); Red Blood Count 3.18 10^6/uL (4.1-5.3); Red Cell Distribution Width 19.9 % (12.1-15.1); White Blood Count 6.1 10^3/uL (4.0-10.0)
[2020-10-12 02:53] LABS: Alanine Aminotransferase 55 U/L (0-33); Albumin Level 2.4 g/dL (3.5-5.2); Alkaline Phosphatase 165 IU/L (35-105); Anion Gap 11.7 (5-19); Aspartate Amino Transferase 71 U/L (0-32); Blood Urea Nitrogen 12 mg/dL (8-23); Calcium 8.6 mg/dL (8.5-10.5); Carbon Dioxide 24 mmol/L (22-29); Chloride 101 mmol/L (98-107); Globulin 3.4 g/dL (1.3-4.6); Glucose 84 mg/dL (65-115); Osmolality Calculated 275 mOsm/kg (285-295); Potassium 3.7 mmol/L (3.5-5.1); Sodium 133 mmol/L (136-145); Total Bilirubin 0.4 mg/dL (0.15-1.2); Total Protein 5.8 g/dL (6.6-8.7)
[2020-10-12 02:54] LABS: Magnesium 1.3 mg/dL (1.7-2.3)
[2020-10-12] MEDS: magnesium sulfate premix 2 GM/50 ML PIGGYBACK IV (03:35)
[2020-10-12] MEDS: venlafaxine ER (24HR) 150 mg Capsule PO (05:51)
[2020-10-12] MEDS: levothyroxine 150 mcg Tablet 75 MCG PO (08:14)
[2020-10-12] MEDS: HYDROcodone-acetaminophen 5-325 mg Tablet 1 TAB PO (08:14)
[2020-10-12] MEDS: metoprolol tartrate 25 mg Tablet PO ×2 (08:15→17:11)
[2020-10-12] MEDS: pantoprazole DR 40 mg Tablet PO (08:15)
[2020-10-12] MEDS: amiodarone 200 mg Tablet PO (08:15)
[2020-10-12] MEDS: magnesium sulfate premix 4 GM/100 ML PREMIX IV (09:20)
--- NOTE | 2020-10-12 14:48 | P.PN_ITS ---
Subjective Subjective: Interval history: She says she is doing all right. She is alert and oriented x3. She does state that she feels quite deconditioned, and not in shape to currently be able to independently return home. [place] is also limited due to fracture of her arm. Vitals/I&O/Wt Last Vital Signs Temp 98.1 F 10/12/20 12:00 Pulse 81 10/12/20 12:00 Resp 18 10/12/20 12:00 BP 117/70 10/12/20 12:00 Pulse Ox 95 10/12/20 12:00 10/11/20 10/12/20 10/12/20 22:59 06:59 14:59 Intake Total 220 / 580 240 / 240 Output Total 775 / 775 1400 / 2175 Balance -555 / -195 -1400 / -1595 240 / 240 Physical Exam Const: COMMON NORMALS: no acute distress, patient oriented x3 and alert GENERAL APPEARANCE: cooperative ORIENTATION/CONSCIOUSNESS: Yes awake HENMT: COMMON NORMALS: oropharynx normal Neck/C-Spine: COMMON NORMALS: no JVD Resp: COMMON NORMALS: normal respiratory effort and clear to auscultation bilaterally AUSCULTATION: clear to auscultation bilaterally Cardio: COMMON NORMALS: no JVD, regular rhythm, S1 normal heart sound present, S2 normal heart sound present and No murmurs present (Cardio) RHYTHM: regular rhythm HEART SOUNDS: S1 normal heart sound present and S2 normal heart sound present GI: COMMON NORMALS: Normal to inspection, nondistended, normoactive bowel sounds present, Soft to palpation and non-tender PALPATION: Yes Soft to palpation Extremity: COMMON NORMALS: no joint enlargement and no pedal edema OTHER: Right arm in sling. Neuro: COMMON NORMALS: patient oriented x3 and moves all extremities SENSORIUM/ORIENTATION: Yes alert Skin: COMMON NORMALS: no rashes or lesions noted GENERAL SKIN EXAM: no rashes or lesions noted Urinary Catheter Management^: Perera Latex Free: Cath Placed During This Visit: yes Reason for Continuing Indwelling Catheter: Acute Urinary Retention or Obstruction Urinary Catheter Date of Insertion: 10/09/20 Urinary Catheter Time of Insertion: 10:57 Data : 10/12/20 02:18 10/12/20 02:18 Micro: Microbiology 10/09/20 10:46 Urine Culture - Final Urine,Clean Catch Escherichia coli A&P Assessment and plan (1) Severe dehydration: Has been receiving gentle IV hydration. This appears to have improved. Will discontinue IV fluids. Status: Acute (2) Metabolic encephalopathy: Improved. Mental status not appears stable. She is oriented x3. She is deconditioned. Agreeable for rehabilitation at [facility]. We are waiting for prior authorization. She is interested in pursuing rehabilitation and more physical therapy. Discussed with her she needs additional assessment for NPH, and so would refer her to neurology and neurosurgery. Status: Acute (3) Acute cystitis: Pansensitive E. coli. On Rocephin. Status: Acute (4) Normal pressure hydrocephalus: Refer to neurology follow-up. Status: Acute (5) Anemia: Requested Hemoccult. INR is supratherapeutic. Hemoglobin appears stabilized. She denies ever having upper or lower endoscopy. Discussed with her would benefit from additional assessment. B12 normal. Pending MMA. Folate normal. Mild iron deficiency. May benefit from supplementation once out of acute infection. Status: Acute (6) Fracture of proximal humerus: Continue arm sling. Follow-up with orthopedics in office. Status: Inactive Qualifiers: Encounter type: subsequent encounter Fracture alignment: displaced Fracture type: closed Laterality: right (7) Supratherapeutic INR: INR rise appears to have plateaued. INR today 3.9. Anticipate that may decrease by tomorrow, and per prior records for valve is mechanical. Due to this goal would be 2.5-3.5 INR. Will resume warfarin currently at 2.5 mg. Recheck INR. Status: Acute (8) Urinary retention with incomplete bladder emptying: Maintain Perera catheter. Follow-up with urology in office. Discussed with her. Status: Acute (9) EFRAIN (acute kidney injury): Resolved. Discussed with her. Status: Acute (10) Hypokalemia: Now normal. Status: Acute (11) Chronic atrial fibrillation: Continue amiodarone, metoporo, warfarin Status: Acute (12) CHF (congestive heart failure): Currently compensated. DC IVF. Cardiac diet. On Lasix. Status: Acute Qualifiers: Heart failure type: diastolic Heart failure chronicity: chronic Qualified Code(s): I50.32 - Chronic diastolic (congestive) heart failure (13) Constipation: Status: Acute Additional A&P Information Full code Cardiac diet DVT prophylaxis : currently on Coumadin Dispo: SNF placement, significantly deconditioned, fracture of dominant arm, will befit from skilled therapy Attestations Medical Necessity Statement*: Continue admission for treatment of UTI, work-up of acute on chronic anemia with supratherapeutic INR requiring chronic anticoagulation due to mechanical mitral valve, optimization of anticoagulation dose, treatment of acute cystitis, monitoring after acute encephalopathy, and arrangements for placement to rehabilitation pending prior authorization. Coding Level of Care Code Acute Cardiology Clinical Consultant for [facility] Fwd Diagnoses Severe dehydration E86.0 Metabolic encephalopathy G93.41 Acute cystitis N30.00 Normal pressure hydrocephalus G91.2 Anemia D64.9 Fracture of proximal humerus S42.209A Encounter type: subsequent encounter Fracture alignment: displaced Fracture type: closed Laterality: right Supratherapeutic INR R79.1 Urinary retention with incomplete bladder emptying R33.9 EFRAIN (acute kidney injury) N17.9 Hypokalemia E87.6 Chronic atrial fibrillation I48.20 CHF (congestive heart failure) I50.32 Heart failure type: diastolic Heart failure chronicity: chronic Constipation K59.00
[2020-10-13] MEDS: cefTRIAXone 1,000 MG in sodium chloride 0.9% (plus) 50 ML 100 MG IV (00:09)
[2020-10-13 00:58] VITALS: BP 118/76; PULSE 91; RESP 18; TEMP 36.8; O2SAT 95
[2020-10-13 04:10] VITALS: BP 115/74; PULSE 94; RESP 18; TEMP 36.9; O2SAT 94
[2020-10-13 05:09] VITALS: PULSE 94
[2020-10-13 05:16] LABS: Basophils # 0.1 10^3/uL (0.0-0.1); Basophils % 0.9 %; Eosinophils # 0.4 10^3/uL (0.0-0.8); Eosinophils % 5.5 %; Hematocrit 27.6 % (37.0-47.0); Hemoglobin 8.7 g/dL (11.5-15.3); Lymphocytes # 1.6 10^3/uL (0.8-4.8); Lymphocytes % 22.4 %; Mean Corpuscular HGB Conc 31.5 g/dL (30.0-36.0); Mean Corpuscular Hemoglobin 26.5 pg (28.0-34.0); Mean Corpuscular Volume 84.1 fL (81-99); Mean Platelet Volume 10.1 fL (7.4-10.4); Monocytes # 0.7 10^3/uL (0.2-0.9); Monocytes % 9.7 %; Neutrophils # 4.22 10^3/uL (1.8-7.7); Neutrophils % 60.8 %; Nucleated Red Blood Cells % 0 %; Platelet Count 454 10^3/cmm (130-400); Red Blood Count 3.28 10^6/uL (4.1-5.3); Red Cell Distribution Width 20.2 % (12.1-15.1); White Blood Count 6.9 10^3/uL (4.0-10.0)
[2020-10-13 05:22] LABS: INR 4.13 (0.8-1.2)
[2020-10-13 05:40] LABS: Alanine Aminotransferase 61 U/L (0-33); Albumin Level 2.4 g/dL (3.5-5.2); Alkaline Phosphatase 170 IU/L (35-105); Anion Gap 9.9 (5-19); Aspartate Amino Transferase 75 U/L (0-32); Blood Urea Nitrogen 7 mg/dL (8-23); Calcium 8.5 mg/dL (8.5-10.5); Carbon Dioxide 24 mmol/L (22-29); Chloride 103 mmol/L (98-107); Globulin 3.4 g/dL (1.3-4.6); Glucose 75 mg/dL (65-115); Osmolality Calculated 273 mOsm/kg (285-295); Potassium 3.9 mmol/L (3.5-5.1); Sodium 133 mmol/L (136-145); Total Bilirubin 0.4 mg/dL (0.15-1.2); Total Protein 5.8 g/dL (6.6-8.7)
[2020-10-13 05:41] LABS: Magnesium 2.1 mg/dL (1.7-2.3)
[2020-10-13] MEDS: venlafaxine ER (24HR) 150 mg Capsule PO (05:56)
[2020-10-13 08:00] VITALS: BP 109/74; PULSE 91; RESP 16; TEMP 36.9; O2SAT 98
[2020-10-13] MEDS: metoprolol tartrate 25 mg Tablet PO (08:03)
[2020-10-13] MEDS: amiodarone 200 mg Tablet PO (08:03)
[2020-10-13] MEDS: levothyroxine 150 mcg Tablet 75 MCG PO (08:04)
[2020-10-13] MEDS: pantoprazole DR 40 mg Tablet PO (08:04)
--- NOTE | 2020-10-13 11:31 | PC.SOCIAL ---
IMM Update Pg. 2 of IMM updated and reviewed with patient, who verbalized understanding. Copy provided.
[2020-10-13 11:32] VITALS: BP 111/75; PULSE 94; RESP 16; TEMP 36.6; O2SAT 95
[2020-10-13] MEDS: HYDROcodone-acetaminophen 5-325 mg Tablet 1 TAB PO (12:16)
--- NOTE | 2020-10-13 12:35 | PM.DCS ---
Discharge Providers Date of Admission: 10/08/20 19:18 Date of Discharge: October 13, 2020 Attending Provider at Admission: Dustin Brown MD Attending Provider at Discharge: Sam Maldonado Primary Care Provider: SHARON Zambrano Diagnoses at Discharge Discharge Diagnosis (1) Supratherapeutic INR: Status: Acute (2) Urinary retention with incomplete bladder emptying: Status: Acute (3) Acute cystitis: Status: Acute (4) Anemia: Status: Acute (5) Normal pressure hydrocephalus: Status: Acute (6) Fracture of proximal humerus: Status: Inactive Qualifiers: Encounter type: subsequent encounter Fracture alignment: displaced Fracture type: closed Laterality: right (7) Metabolic encephalopathy: Status: Acute (8) Severe dehydration: Status: Acute (9) EFRAIN (acute kidney injury): Status: Acute (10) Hypokalemia: Status: Acute (11) Chronic atrial fibrillation: Status: Acute (12) CHF (congestive heart failure): Status: Acute Qualifiers: Heart failure type: diastolic Heart failure chronicity: chronic Qualified Code(s): I50.32 - Chronic diastolic (congestive) heart failure (13) Constipation: Status: Acute (14) Mitral valve replaced: Status: Acute Permanent problem details: valve replacement 1994 Reason for Visit Reason for Visit: GEN NOT FEELING WELL Hospital Course Hospital Course Pleasant 69-year-old lady with history of CAD, status post multiple stents mechanical mitral valve present, atrial fibrillation, sleep apnea was admitted on 10/06 due to altered mental status, with finding of urinary tract infection, acute kidney injury and urinary retention on presentation, with about 5 L of urine drained after placement of Perera catheter. Urinary tract infection was treated with ceftriaxone, with pansensitive E. coli growing on culture. Acute kidney injury gradually resolved after relief of obstruction with normalization of creatinine. On admission was also treated with IV hydration due to dehydration. No persistent/higher obstruction seen on CT abdomen pelvis. Perera catheter is kept in place until she can be assessed by urology in office due to urinary retention with resulting acute kidney injury and UTI. In addition to hazy stranding in the fat surrounding urinary bladder, also noted colonic constipation incidentally on CT. chronic T12 compression deformity. Some streaky densities noted in the lung bases, consistent with scarring and/or atelectasis. Possibly groundglass opacities. She is remained afebrile while in the hospital. Has had no respiratory difficulties. Remains on room air with good saturation. With encephalopathy on presentation, initially baseline was difficult to establish, however, this appears to resolve, and she has stably been oriented x3, with good insight. She is quite deconditioned, and with also noted sustained fracture of proximal right humerus seen on x-ray on presentation, which was discussed with orthopedics, with recommendation of arm sling and follow-up in office. With limitations in mobility, deconditioning, she has been agreeable to continue rehabilitation at [facility] facility. Of note on presentation CT of the head also noted ventriculomegaly out of proportion to atrophic changes and with thinning of corpus callosum, giving rise to concern regarding possible NPH. Due to this she is referred for additional evaluation by neurology, and may require referral to neurosurgery. Of note while in the hospital also has been having supratherapeutic INR. Hemoccult has been ordered, however, with constipation stool sample has not been able to be collected. Due to mild iron deficiency she started on iron replacement therapy. B12 and folic acid levels were normal. MMA has been requested and is pending. Please follow-up. Please follow-up on this. Her hemoglobin has stabilized. Warfarin was held for a while, currently restarted lower dose to be resumed at 1 mg starting tomorrow. Target INR 2.5-3.5 due to mechanical mitral valve. Continue follow-up with cardiology. During hospitalization amiodarone dose has been decreased to 200 mg. She is at noted moderate transaminitis on presentation, AST 117, ALT 110, alk phos 197, with gradual improvement while in the hospital. Please reassess liver function, with some persistent elevation possibly due to the antibiotic treatment in the hospital, however, if remains elevated, consider further tapering off and possibly discontinuing amiodarone which she takes for atrial fibrillation. Follow-up with cardiology in office. Physical Exam Const: COMMON NORMALS: no acute distress, patient oriented x3 and alert GENERAL APPEARANCE: cooperative ORIENTATION/CONSCIOUSNESS: Yes awake OTHER: She is awake, alert, sitting up in bed. Pleasant, conversant. In good spirits. Looking forward to transitioning to rehabilitation at SNF. Denies any complaints. HENMT: COMMON NORMALS: oropharynx normal Neck/C-Spine: COMMON NORMALS: no JVD Resp: COMMON NORMALS: normal respiratory effort and clear to auscultation bilaterally AUSCULTATION: clear to auscultation bilaterally Cardio: COMMON NORMALS: no JVD, regular rhythm, S1 normal heart sound present, S2 normal heart sound present and No murmurs present (Cardio) RHYTHM: regular rhythm HEART SOUNDS: S1 normal heart sound present and S2 normal heart sound present GI: COMMON NORMALS: Normal to inspection, nondistended, normoactive bowel sounds present, Soft to palpation and non-tender PALPATION: Yes Soft to palpation Extremity: COMMON NORMALS: no joint enlargement and no pedal edema OTHER: Right arm in sling. Neuro: COMMON NORMALS: patient oriented x3 and moves all extremities SENSORIUM/ORIENTATION: Yes alert Skin: COMMON NORMALS: no rashes or lesions noted GENERAL SKIN EXAM: no rashes or lesions noted Urinary Catheter Management^: Perera Latex Free: Cath Placed During This Visit: yes Reason for Continuing Indwelling Catheter: Acute Urinary Retention or Obstruction Urinary Catheter Date of Insertion: 10/09/20 Urinary Catheter Time of Insertion: 10:57 Discharge Data Data Completed and Pending: Completed Studies During Hospitalization Category Date Time Status CT abdomen pelvis wo con 10500 Rout ine Cat Scan 10/09/20 15:[address] head wo con* 7 0450 Stat Cat Scan 10/06/20 22:39 Completed XR chest 1V doron ble 21585 Urgent Exams 10/06/20 18:19 Completed XR shoulder RT 1V 04031 Stat Exams 10/06/20 18:19 Completed Pending at discharge Category Date Time Status Blood Culture Sta t Lab 10/09/20 17:05 Results Complete Blood Co unt w/Auto AM LABS Lab 10/14/20 04:00 Ordered Complete Blood Co unt w/Auto AM LABS Lab 10/15/20 04:00 Ordered Complete Blood Co unt w/Auto AM LABS Lab 10/16/20 04:00 Ordered Comprehensive Met abolic Panel AM LA BS Lab 10/14/20 04:00 Ordered Comprehensive Met abolic Panel AM LA BS Lab 10/15/20 04:00 Ordered Comprehensive Met abolic Panel AM LA BS Lab 10/16/20 04:00 Ordered Immunochemical Fe luisito OCB Routine Lab 10/13/20 11:20 Received Methylmalonic Aci d Routine Lab 10/11/20 05:34 Received Prothrombin Time INR AM LABS Lab 10/14/20 04:00 Ordered Labs from last 24 hours 10/13/20 10/13/20 10/13/20 04:33 04:33 04:33 WBC 6.9 RBC 3.28 L Hgb 8.7 L Hct 27.6 L MCV 84.1 MCH 26.5 L MCHC 31.5 RDW 20.2 H Plt Count 454 H MPV 10.1 Neut % (Auto) 60.8 Lymph % (Auto) 22.4 Walker % (Auto) 9.7 Eos % (Auto) 5.5 Baso % (Auto) 0.9 Neut # (Auto) 4.22 Lymph # (Auto) 1.6 Walker # (Auto) 0.7 Eos # (Auto) 0.4 Baso # (Auto) 0.1 Nucleated RBC % (a uto) 0 Nucleated RBCs # 0.0 PT 41.60 H INR 4.13 H Sodium 133 L Potassium 3.9 Chloride 103 Carbon Dioxide 24 Anion Gap 9.9 BUN 7 L Creatinine 0.5 GFR Calculation 122.0 Glucose 75 Calculated Osmolal ity 273 L Calcium 8.5 Magnesium Total Bilirubin 0.4 AST 75 H ALT 61 H Alkaline Phosphata se 170 H Total Protein 5.8 L Albumin 2.4 L Globulin 3.4 10/13/20 04:33 WBC RBC Hgb Hct MCV MCH MCHC RDW Plt Count MPV Neut % (Auto) Lymph % (Auto) Walker % (Auto) Eos % (Auto) Baso % (Auto) Neut # (Auto) Lymph # (Auto) Walker # (Auto) Eos # (Auto) Baso # (Auto) Nucleated RBC % (a uto) Nucleated RBCs # PT INR Sodium Potassium Chloride Carbon Dioxide Anion Gap BUN Creatinine GFR Calculation Glucose Calculated Osmolal ity Calcium Magnesium 2.1 Total Bilirubin AST ALT Alkaline Phosphata se Total Protein Albumin Globulin Vitals: Last Vital Signs Temp 97.9 F 10/13/20 11:32 Pulse 94 10/13/20 11:32 Resp 16 10/13/20 11:32 BP 111/75 10/13/20 11:32 Pulse Ox 95 10/13/20 11:32 Discharge Plan Discharge Patient Disposition: Xfer SNF Condition: Stable Prescriptions: New Lanolin (HPA) 100 % Cream 1 applic topical PRN PRN (Reason: Dryness) Qty: 21 RF: 0 ferrous sulfate 325 mg (65 mg iron) tablet,delayed release (DR/EC) 325 mg PO EVERY OTHER DAY Qty: 15 RF: 0 Miralax 17 gram powder in packet 17 g PO DAILY Qty: 30 RF: 0 Continued nitroglycerin [Nitrostat] 0.4 mg tablet, sublingual 0.4 mg SUBLINGUAL Q5M PRN (Reason: chest pains) RF: 0 baclofen 10 mg tablet 10 mg PO DAILY Qty: 30 RF: 2 furosemide 40 mg tablet 40 mg PO QAM Qty: 90 RF: 3 tramadol-acetaminophen 37.5-325 mg tablet 1 tab PO .hs PRN (Reason: pain, moderate at night) Qty: 30 RF: 0 venlafaxine 150 mg capsule,extended release 24hr 150 mg PO QAM Qty: 30 RF: 2 levothyroxine [Euthyrox] 75 mcg tablet 75 mcg PO DAILY 30 Days Qty: 30 RF: 3 pantoprazole 40 mg tablet,delayed release (DR/EC) 40 mg PO DAILY Qty: 30 RF: 2 atorvastatin 40 mg tablet 40 mg PO DAILY Qty: 30 RF: 3 hydrocodone-acetaminophen [[place]] 5-325 mg tablet 1 tab PO Q6H Qty: 10 RF: 0 warfarin 1 mg tablet 1 mg PO DIRECTED 30 Days Qty: 30 RF: 6 Changed amiodarone 400 mg tablet 200 mg PO DAILY Qty: 30 RF: 6 metoprolol tartrate 25 mg tablet 25 mg PO BID Qty: 0 RF: 0 Discontinued isosorbide dinitrate 30 mg tablet See Rx Instructions PO DAILY RF: 0 warfarin 5 mg tablet 5 mg PO DAILY RF: 0 potassium chloride 20 mEq tablet extended release 20 meq PO DAILY Qty: 90 RF: 3 warfarin 3 mg tablet 3 mg PO DAILY Qty: 30 RF: 6 warfarin 2 mg tablet 2 mg PO DAILY Qty: 30 RF: 6 warfarin 4 mg tablet 4 mg PO DAILY Qty: 30 RF: 3 oxycodone-acetaminophen [Percocet] 7.5-325 mg tablet 1 tab PO Q6H PRN (Reason: pain) Qty: 14 RF: 0 Discharge Orders: Discharge Order (Routine); Ordered 10/13/20 Ordered By: Sam Maldonado Referrals: [facility] [Outside] Louisa Palumbo MD [Physician] - 2 weeks (Possible NPH) Nilton Longoria DO [Physician] - 2 weeks (R humeral fracure) Pete Delgadillo MD [Physician] - 1 week (Urinary retention, EFRAIN, UTI) Dustin Worrell MD [Physician] - 2 weeks (Liver injury, amiodarone therapy, supratherapeutic INR, mechanical mitral valve) Sofia Goodman, WINDOW SYSTEMS ADMINISTRATOR [Primary Care Provider] - 4-7 days Discharge Diet: Cardiac Discharge Activity: As per PT/OT instructions Activity Restrictions/Additional Instructions: Please recheck INR daily for 3 days until it stabilizes. For now continue warfarin at decreased dose of 1 mg daily starting on 10/14. Target INR 2.5-3.5 with history of mechanical mitral valve. Please adjust warfarin dose accordingly. Please also monitor hemoglobin level due to anemia and in the setting of supratherapeutic INR. Iron deficiency anemia will benefit from additional endoscopic assessment once she is out of acute episode of illness. Methylmalonic acid level is pending. Please follow-up resolved. B12, folic acid were normal. Please also recheck liver function in 3 days now that she is off antibiotic (was on ceftriaxone in the hospital). If persistent abnormality, consider additional work-up, consider further tapering down or weaning off amiodarone. Please follow up with neurology in office for additional assessment of possible normal pressure hydrocephalus. Please maintain Perera catheter in place until she can follow-up with urology in office for additional assessment and voiding trial. Maintain R arm sling. Follow up with orthopedics in office. Add fiber to meals for constipation. 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 Diagnoses Supratherapeutic INR R79.1 Urinary retention with incomplete bladder emptying R33.9 Acute cystitis N30.00 Anemia D64.9 Normal pressure hydrocephalus G91.2 Fracture of proximal humerus S42.209A Encounter type: subsequent encounter Fracture alignment: displaced Fracture type: closed Laterality: right Metabolic encephalopathy G93.41 Severe dehydration E86.0 EFRAIN (acute kidney injury) N17.9 Hypokalemia E87.6 Chronic atrial fibrillation I48.20 CHF (congestive heart failure) I50.32 Heart failure type: diastolic Heart failure chronicity: chronic Constipation K59.00 Mitral valve replaced Z95.2
[2020-10-13 14:52] VITALS: BP 111/75; PULSE 94; RESP 16; TEMP 36.6; O2SAT 95
[2020-10-15 09:48] LABS: Methylmalonic Acid 295 nmol/L (87-318)
== END 2020-10-13 14:52 | disposition home or self-care (01) | DRG 682 ==
LOC: ER 21:56 → MEDSURG 21:56
PROVIDERS: Student in an Organized Health Care Education/Training Program; Admitting Provider Internal Medicine; Emergency Provider Student in an Organized Health Care Education/Training Program; PCP Nurse Practitioner Family; Visit Provider Internal Medicine
DX: N17.9 Acute kidney failure, unspecified (principal); G93.41 Metabolic encephalopathy; S42.209A Unspecified fracture of upper end of unspecified humerus, initial encounter for closed fracture; I50.32 Chronic diastolic (congestive) heart failure; N30.00 Acute cystitis without hematuria; I13.0 Hypertensive heart and chronic kidney disease with heart failure and stage 1 through stage 4 chronic kidney disease, or unspecified chronic kidney disease; E86.0 Dehydration; E87.6 Hypokalemia; Z95.3 Presence of xenogenic heart valve; I48.91 Unspecified atrial fibrillation; D64.9 Anemia, unspecified; R33.9 Retention of urine, unspecified; G47.33 Obstructive sleep apnea (adult) (pediatric); Z95.5 Presence of coronary angioplasty implant and graft; I25.10 Atherosclerotic heart disease of native coronary artery without angina pectoris; B96.20 Unspecified Escherichia coli [E. coli] as the cause of diseases classified elsewhere; Z79.01 Long term (current) use of anticoagulants; X58.XXXA Exposure to other specified factors, initial encounter; K21.9 Gastro-esophageal reflux disease without esophagitis; E78.5 Hyperlipidemia, unspecified; K59.09 Other constipation; G47.00 Insomnia, unspecified; G89.29 Other chronic pain; M54.2 Cervicalgia; N18.2 Chronic kidney disease, stage 2 (mild)
CPT/HCPCS: 12345; 36415; 36416; 51702; 70450; 71045; 73020; 74176; 80048; 80053; 81001; 82274; 82607; 82728; 82746; 82962; 83540; 83550; 83605; 83735; 83921; 84443; 85025; 85610; 87040; 87077; 87086; 87186; 87426; 93005; 97110; 97162; 97530; 99283; A4565; G0378; J0696; J3475; J3480; J7030

== ENCOUNTER 2020-10-19 16:36 | Outpatient (CLI) | payer MEDICARE, MEDICAID, SELFPAY ==
[2020-10-19 17:30] LABS: Basophils # 0.1 10^3/uL (0.0-0.1); Basophils % 0.9 %; Eosinophils # 0.4 10^3/uL (0.0-0.8); Eosinophils % 4.5 %; Hematocrit 32.1 % (37.0-47.0); Hemoglobin 9.9 g/dL (11.5-15.3); Lymphocytes % 9.7 %; Mean Corpuscular HGB Conc 30.8 g/dL (30.0-36.0); Mean Corpuscular Hemoglobin 26.7 pg (28.0-34.0); Mean Corpuscular Volume 86.5 fL (81-99); Mean Platelet Volume 10.1 fL (7.4-10.4); Monocytes # 0.7 10^3/uL (0.2-0.9); Monocytes % 6.9 %; Neutrophils # 7.63 10^3/uL (1.8-7.7); Neutrophils % 77.6 %; Nucleated Red Blood Cells % 0 %; Platelet Count 575 10^3/cmm (130-400); Red Blood Count 3.71 10^6/uL (4.1-5.3); Red Cell Distribution Width 20.5 % (12.1-15.1); White Blood Count 9.8 10^3/uL (4.0-10.0)
== END 2020-10-19 16:37 | disposition home or self-care (01) ==
LOC: LAB 16:39
PROVIDERS: PCP Nurse Practitioner Family; Visit Provider Family Medicine
DX: R31.9 Hematuria, unspecified (principal)
CPT/HCPCS: 73030; 85025

== ENCOUNTER → 2020-10-21 09:37 | Outpatient (BNVA) | payer MEDICARE, MEDICAID, SELFPAY | PROVIDERS: PCP Nurse Practitioner Family; Referring Provider Internal Medicine; Visit Provider Specialist | DX: Q04.8 Other specified congenital malformations of brain (principal); F03.90 Unspecified dementia, unspecified severity, without behavioral disturbance, psychotic disturbance, mood disturbance, and anxiety; Z95.2 Presence of prosthetic heart valve | CPT/HCPCS: 99204 ==

== ENCOUNTER 2020-11-11 10:23 | Emergency (ER) | payer MEDICARE, MEDICAID, SELFPAY ==
[2020-11-11] VITALS (7 sets, daily range): BP systolic 110–135; BP diastolic 67–79; PULSE 72–97; RESP 18–20; TEMP 36.9; O2SAT 91–97; BMI 28.0
--- NOTE | 2020-11-11 10:33 | CT_ITS ---
WS: [id number] CT HEAD TECHNIQUE: Noncontrast CT of the head obtained from the skullbase to the vertex. CLINICAL INFORMATION: fall, headache, warfarin COMPARISON: None. DLP: 902.[address] scans at [facility] use at least one of these dose optimization techniques: automat ed exposure control; mA and/or kV adjustment per patient size (includes targeted exams where dose is matched to clinical indication); or iterative reconstruction. FINDINGS: No evidence of intracranial hemorrhage or mass effect. Ventricular system and basal cisterns are hansen nt. Mild small vessel changes with moderate parenchymal volume loss. Chronic infarct in the right fro ntal lobe laterally with encephalomalacia. Prominent ventricular system with dilatation of the third ventricle suspicious for normal pressure hydrocephalus is unchanged. Thickening of the carpus callosu m. No transependymal edema. Chronic lacunar infarct right cerebellum. No extra-axial fluid collection s. No evidence of mass or mass effect. Paranasal sinuses and mastoid air cells are well aerated. .Normal visualized soft tissues. CT/CT head wo con* [id number] IMPRESSION: 1. No evidence of intracranial hemorrhage or mass effect. 2. Mild small vessel changes with moderate parenchymal volume loss. 3. Chronic infarct in the right frontal lobe laterally. 4. Prominent ventricular system unchanged since October 06, 2020. No transepe ndymal edema. This can be seen with normal pressure hydrocephalus in the approp riate clinical setting. 5. No acute intracranial findings.
--- NOTE | 2020-11-11 10:36 | CT_ITS ---
WS: [id number] CT CERVICAL TRAUMA TECHNIQUE: Noncontrast CT of the cervical spine with coronal and sagittal reformatted images. CLINICAL INFORMATION: fall, dizziness COMPARISON: None. DLP: 701.[address] scans at [facility] use at least one of these dose optimization techniques: automat ed exposure control; mA and/or kV adjustment per patient size (includes targeted exams where dose is matched to clinical indication); or iterative reconstruction. FINDINGS: Straightening of the normal cervical lordosis. Normal craniocervical junction. Normal C1-C2 articulat ion. Dens is normal in appearance. Normal occipital condyles. No high-grade spinal canal narrowing. N ormal C1 ring. No evidence of acute fracture or dislocation. Normal prevertebral soft tissues. Multinodular thyroid. Sternotomy. Mastoids air cells are well aerated. CT/CT cervical spin wo con* [id number] IMPRESSION: No evidence of acute fracture or dislocation.
--- NOTE | 2020-11-11 10:37 | ECG_ITS ---
[facility] Test Date: 2020-11-11 Pat Name: Odilia Ulloa Department: Room: Gender: Female Cannoneer: : 1950 Requested By: Alycia Contreras Order Number: [id number] Reading MD: PORTIA GAGNON Measurements Intervals [place] Rate: 80 P: MT: QRS: 7 QRSD: 130 T: -6 QT: 425 QTc: 492 Interpretive Statements ATRIAL FIBRILLATION POSSIBLE RIGHT VENTRICULAR CONDUCTION DELAY [RSR (QR) IN V1/V2] INFERIOR MYOCARDIAL INFARCTION , PROBABLY OLD [40+ ms Q WAVE AND/OR ST/T ABNORMALITY IN II/aVF] Compared to ECG 10/06/2020 19:05:33 Myocardial infarct finding now present Left bundle-branch block no longer present Electronically Signed On 11-11-2020 20:28:38 [employer]UIS[employer] WILDLIFE TRAPPER by PORTIA GAGNON [email or web address]
--- NOTE | 2020-11-11 11:01 | W.ED.HEATRA ---
HPI - Head Injury General: Chief complaint: Head Injury Stated complaint: POST FALL/ N/V/ DIZZINESS Time Seen by Provider: 11/11/20 10:32 History of Present Illness: HPI Narrative: This patient is a 70-year-old female sent over from her assisted living facility. She fell last night and struck her head on the bathroom wall. She said she left a hole in the wall. She denies loss of consciousness from the fall and denies syncope prior to the fall. She does say she gets dizzy and fell because of dizziness. She also has chronic weakness and numbness in her arms and legs per the patient. She said she felt okay last night but this morning had nausea and threw up twice. She had a severe headache this morning which is somewhat better now. She also has some pain on both sides of her neck. She denies any other injuries. She fell about a month ago and fractured her right arm which is now in a sling. She is on warfarin and has had valve replacements and also has A. fib. She denies any other recent illness or complaint. Complaint: head injury, head pain and fall Onset (ago): unknown ( Last night ) Mechanism of Injury: fall Place: home Loss of Consciousness: no Severity: moderate Quality: aching Other Injuries: neck Context: on warfarin Associated symptoms: Reports nausea, neck pain and vomiting Review of Systems General: Reports: 10 or more systems reviewed and unremarkable except in HPI and below Const: Denies: fever(s), chills, fatigue or malaise Eyes: Denies: change in vision ENMT: Denies: odynophagia Card: Denies: chest pain or swelling of feet/ankles Resp: Denies: dyspnea, productive cough or non-productive cough GI: Reports: nausea and vomiting : Denies: flank pain or difficulty voiding Musc: Reports: neck pain Skin/Breast: Denies: rash Neuro: Denies: headache(s), numbness in extremities or weakness in extremities Guzman/Lymph: Denies: easy bruising or easy bleeding PFS ED PFSH: Medical History Anemia in chronic illness Back pain with risk for osteoporosis CAD (coronary artery disease) CHF (congestive heart failure) Chronic atrial fibrillation Chronic constipation Chronic neck and back pain CKD (chronic kidney disease) stage 2, GFR 60-89 ml/min Enrolled in chronic care management GERD (gastroesophageal reflux disease) Hyperlipidemia Hypertension Hypothyroid Insomnia Memory impairment of gradual onset Urinary retention Surgical History H/O section Mitral valve replaced valve replacement 1994 S/P cholecystectomy Family History Other CAD (coronary artery disease) Diabetes Social History Smoking and tobacco status: never smoked Alcohol intake: never Household members: spouse Housing: House Female Reproductive History: Para: 1 Physical Exam Const: COMMON NORMALS: no acute distress, patient oriented x3, no limitations and alert GENERAL APPEARANCE: cooperative and comfortable HENMT: HEAD & SCALP: normal to inspection FACE & SINUS: normal facial exam Eye: GENERAL EYE: appearance normal, both eyes and all related structures Neck/C-Spine: COMMON NORMALS: supple, no meningeal signs and no JVD Chest: COMMONS NORMALS: normal inspection of the chest Resp: COMMON NORMALS: normal respiratory effort, No use of accessory muscles and clear to auscultation bilaterally AUSCULTATION: clear to auscultation bilaterally Cardio: COMMON NORMALS: no JVD and regular rate RATE: regular rate RHYTHM: abnormal rhythm irregularly irregular HEART SOUNDS: Clicking heart sound present (Consistent with valve replacement) GI: COMMON NORMALS: Normal to inspection, nondistended, normoactive bowel sounds present, Soft to palpation and non-tender INSPECTION: Yes normal to inspection AUSCULTATION: Yes normoactive bowel sounds PALPATION: Yes Soft to palpation Back/Pelvis: COMMON NORMALS: thoracic and lumbar spine normal to inspection Extremity: COMMON NORMALS: normal to inspection NARRATIVE EXTREMITY EXAM: Right upper extremity in a sling. She has some limited range of motion of the shoulder but normal strength and sensation below. Neuro: COMMON NORMALS: patient oriented x3, moves all extremities, no focal motor deficits and no sensory deficits noted SENSORIUM/ORIENTATION: Yes alert MENINGEAL SIGNS: Yes no meningeal signs Psych: COMMON NORMALS: mental status grossly normal, cooperative and normal affect Skin: COMMON NORMALS: no rashes or lesions noted and turgor normal GENERAL SKIN EXAM: no rashes or lesions noted and turgor normal Course ED course: Fall with head injury. She is having headache, nausea and vomiting this morning. She is on warfarin. Concern for intracranial hemorrhage. Also possible concussion. Prior CTs have raised the question of normal pressure hydrocephalus. She had a neuro consult on 10/21/2020 which suggested that this was not an acute issue. She apparently has had enlarged ventricles on her CTs for many years and clinical exam was not consistent with NPH. Ambulation trial in the ED was successful. [facility] will be [facility] the [facility]. She is a fall risk and they are aware of that. Vital Signs: Vital signs: Vital Signs Temperature 98.4 F 11/11/20 10:27 Pulse Rate 82 11/11/20 14:00 Respiratory Rate 20 H 11/11/20 10:51 Blood Pressure 110/70 11/11/20 14:00 Pulse Oximetry 91 11/11/20 14:00 MDM - Head Injury Lab Data: Labs: Lab Results 11/11/20 11/11/20 11/11/20 Range/Units 11:44 11:44 11:44 WBC 8.8 (4.0-10.0) 10^3/ uL RBC 3.57 L (4.1-5.3) 10^6/u L Hgb 10.1 L (11.5-15.3) g/dL Hct 31.9 L (37.0-47.0) % MCV 89.4 (81-99) fL MCH 28.3 (28.0-34.0) pg MCHC 31.7 (30.0-36.0) g/dL RDW 20.0 H (12.1-15.1) % Plt Count 426 H (130-400) 10^3/c mm MPV 9.6 (7.4-10.4) fL Neut % (Auto) 75.1 % Lymph % (Auto) 11.3 % [place] % (Auto) 10.0 % Eos % (Auto) 2.3 % Baso % (Auto) 0.8 % Neut # (Auto) 6.65 (1.8-7.7) 10^3/u L Lymph # (Auto) 1.0 (0.8-4.8) 10^3/u L [place] # (Auto) 0.9 (0.2-0.9) 10^3/u L Eos # (Auto) 0.2 (0.0-0.8) 10^3/u L Baso # (Auto) 0.1 (0.0-0.1) 10^3/u L Nucleated RBC % (a uto) 0 % Nucleated RBCs # 0.0 /100WBC Sodium 136 (136-145) mmol/L Potassium 3.2 L (3.5-5.1) mmol/L Chloride 99 (98-107) mmol/L Carbon Dioxide 29 (22-29) mmol/L Anion Gap 11.2 (5-19) BUN 8 (8-23) mg/dL Creatinine 0.6 (0.5-0.9) mg/dL GFR Calculation Not Reportable Glucose 111 (65-115) mg/dL Calculated Osmolal ity 281 L (285-295) mOsm/k g Calcium 9.3 (8.5-10.5) mg/dL Total Bilirubin 0.8 (0.15-1.2) mg/dL AST 21 (0-32) U/L ALT 14 (0-33) U/L Alkaline Phosphata se 165 H (35-105) IU/L Troponin T Baselin e 21 H (0-10) ng/L Total Protein 6.5 L (6.6-8.7) g/dL Albumin 3.4 L (3.5-5.2) g/dL Globulin 3.1 (1.3-4.6) g/dL Discharge Plan Discharge Patient Disposition: Home Clinical Impression: Concussion without loss of consciousness Condition: Stable Prescriptions: No Action nitroglycerin [Nitrostat] 0.4 mg tablet, sublingual 0.4 mg SUBLINGUAL Q5M PRN (Reason: chest pains) RF: 0 bisacodyl [Dulcolax (bisacodyl)] 10 mg suppository 10 mg GA DAILY PRN (Reason: Constipation) RF: 0 ferrous sulfate 325 mg (65 mg iron) tablet,delayed release (DR/EC) 325 mg PO EVERY OTHER DAY Qty: 15 RF: 0 amiodarone 200 mg Tablet 200 mg PO DAILY@08 RF: 0 tramadol 50 mg Tablet 50 mg PO BEDTIME PRN (Reason: Pain) RF: 0 warfarin 2 mg Tablet 2 mg PO DAILY@21 RF: 0 furosemide 40 mg tablet 40 mg PO DAILY@05 RF: 0 atorvastatin 40 mg tablet 40 mg PO DAILY@21 RF: 0 Miralax 17 gram powder in packet 17 g PO DAILY@08 RF: 0 [place] 5-325 mg tablet 1 tab PO Q6H PRN (Reason: Pain) RF: 0 venlafaxine 150 mg capsule,extended release 24hr 150 mg PO DAILY@08 RF: 0 Euthyrox 75 mcg tablet 75 mcg PO DAILY@05 RF: 0 baclofen 10 mg tablet 10 mg PO DAILY@08 RF: 0 pantoprazole 40 mg tablet,delayed release (DR/EC) 40 mg PO DAILY@05 RF: 0 metoprolol tartrate 25 mg tablet 25 mg PO Q12H RF: 0 Lanolin (HPA) 100 % cream See Rx Instructions .ROUTE .COMPLEX PRN (Reason: Dryness) RF: 0 Discharge Orders: Discharge ED (Routine); Ordered 11/11/20 Ordered By: Alycia Mathews Referrals: Sofia Goodman, RENT CONTROL OFFICE MANAGER [Primary Care Provider] - Discharge Diet: Usual diet Discharge Activity: Resume usual activity Patient Instructions: Concussion (ED) Coding Level of Care Code ED Program Director Group Work for Marthag Fwd Exam Comprehensive
[2020-11-11 11:58] LABS: Basophils # 0.1 10^3/uL (0.0-0.1); Basophils % 0.8 %; Eosinophils # 0.2 10^3/uL (0.0-0.8); Eosinophils % 2.3 %; Hematocrit 31.9 % (37.0-47.0); Hemoglobin 10.1 g/dL (11.5-15.3); Lymphocytes % 11.3 %; Mean Corpuscular HGB Conc 31.7 g/dL (30.0-36.0); Mean Corpuscular Hemoglobin 28.3 pg (28.0-34.0); Mean Corpuscular Volume 89.4 fL (81-99); Mean Platelet Volume 9.6 fL (7.4-10.4); Monocytes # 0.9 10^3/uL (0.2-0.9); Neutrophils # 6.65 10^3/uL (1.8-7.7); Neutrophils % 75.1 %; Nucleated Red Blood Cells % 0 %; Platelet Count 426 10^3/cmm (130-400); Red Blood Count 3.57 10^6/uL (4.1-5.3); White Blood Count 8.8 10^3/uL (4.0-10.0)
[2020-11-11] MEDS: ondansetron 2 mg/ML SDV 2 mL 4 MG IVP (12:13)
[2020-11-11 12:25] LABS: Alanine Aminotransferase 14 U/L (0-33); Albumin Level 3.4 g/dL (3.5-5.2); Alkaline Phosphatase 165 IU/L (35-105); Anion Gap 11.2 (5-19); Aspartate Amino Transferase 21 U/L (0-32); Blood Urea Nitrogen 8 mg/dL (8-23); Calcium 9.3 mg/dL (8.5-10.5); Carbon Dioxide 29 mmol/L (22-29); Chloride 99 mmol/L (98-107); Globulin 3.1 g/dL (1.3-4.6); Glucose 111 mg/dL (65-115); Osmolality Calculated 281 mOsm/kg (285-295); Potassium 3.2 mmol/L (3.5-5.1); Sodium 136 mmol/L (136-145); Total Bilirubin 0.8 mg/dL (0.15-1.2); Total Protein 6.5 g/dL (6.6-8.7)
[2020-11-11 12:36] LABS: Troponin(5th) Baseline 21 ng/L (0-10)
--- NOTE | 2020-11-11 12:37 | ECG_ITS ---
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1950 Requested By: Alycia Contreras Order Number: [id number] Reading MD: PORTIA GAGNON Measurements Intervals [place] Rate: 93 P: SD: QRS: 18 QRSD: 138 T: 22 QT: 417 QTc: 521 Interpretive Statements ATRIAL FIBRILLATION INTRAVENTRICULAR CONDUCTION DELAY [130+ ms QRS DURATION] INFERIOR MYOCARDIAL INFARCTION , PROBABLY OLD [40+ ms Q WAVE AND/OR ST/T ABNORMALITY IN II/aVF] Compared to ECG 11/11/2020 11:00:38 Intraventricular conduction delay now present Myocardial infarct finding still present Electronically Signed On 11-11-2020 20:30:25 MANAGER FRONT by PORTIA GAGNON [id number]
== END 2020-11-11 14:50 | disposition home or self-care (01) ==
PROVIDERS: Emergency Provider Emergency Medicine; PCP Nurse Practitioner Family
DX: S06.0X0A Concussion without loss of consciousness, initial encounter (principal); W19.XXXA Unspecified fall, initial encounter; I25.10 Atherosclerotic heart disease of native coronary artery without angina pectoris; I48.20 Chronic atrial fibrillation, unspecified; I13.0 Hypertensive heart and chronic kidney disease with heart failure and stage 1 through stage 4 chronic kidney disease, or unspecified chronic kidney disease; N18.2 Chronic kidney disease, stage 2 (mild); I50.9 Heart failure, unspecified; E78.5 Hyperlipidemia, unspecified
CPT/HCPCS: 12345; 70450; 72125; 80053; 84484; 85025; 93005; 96374; 99282; 99283; J2405

== ENCOUNTER → 2020-11-16 14:58 | Outpatient (BNVA) | payer MEDICARE, MEDICAID, SELFPAY | PROVIDERS: PCP Nurse Practitioner Family; Visit Provider Orthopaedic Surgery | DX: Z47.89 Encounter for other orthopedic aftercare (principal); S42.211D Unspecified displaced fracture of surgical neck of right humerus, subsequent encounter for fracture with routine healing; X58.XXXD Exposure to other specified factors, subsequent encounter | CPT/HCPCS: 73030 ==

== ENCOUNTER → 2020-12-28 14:33 | Outpatient (BNVA) | payer MEDICARE, MEDICAID, SELFPAY | PROVIDERS: PCP Nurse Practitioner Family; Visit Provider Orthopaedic Surgery | DX: S42.209D Unspecified fracture of upper end of unspecified humerus, subsequent encounter for fracture with routine healing (principal); X58.XXXD Exposure to other specified factors, subsequent encounter | CPT/HCPCS: 73030 ==

== ENCOUNTER → 2021-02-08 14:39 | Outpatient (BNVA) | payer MEDICARE, MEDICAID, SELFPAY | PROVIDERS: PCP Nurse Practitioner Family; Visit Provider Orthopaedic Surgery | DX: S42.209D Unspecified fracture of upper end of unspecified humerus, subsequent encounter for fracture with routine healing (principal); X58.XXXD Exposure to other specified factors, subsequent encounter | CPT/HCPCS: 73060 ==

== ENCOUNTER 2021-02-14 08:36 | Outpatient (CLI) | payer MEDICARE, MEDICAID, SELFPAY ==
--- NOTE | 2021-02-14 08:42 | MM_ITS ---
WS: [id number] BILATERAL SCREENING DIGITAL MAMMOGRAM WITH CAD HISTORY: SCREENING COMPARISON: 12/08/2011 Bilateral CC and MLO views submitted. Computer aided detection analyzed. Breast composition: There are scattered areas of fibroglandular density. No suspicious masses, microc alcifications or architectural distortion. Benign breast arterial calcifications. MM/[place] [id number] IMPRESSION: BI-RADS: 2-Benign FOLLOW UP: 1 Year Follow-up
== END 2021-02-14 08:37 | disposition home or self-care (01) ==
PROVIDERS: PCP Family Medicine; Visit Provider Family Medicine
DX: Z12.31 Encounter for screening mammogram for malignant neoplasm of breast (principal)
CPT/HCPCS: 77067

== ENCOUNTER 2021-03-11 12:58 | Outpatient (CLI) | payer MEDICARE, MEDICAID, SELFPAY ==
--- NOTE | 2021-03-11 13:03 | XR_ITS ---
WS: [id number] Bone mineral density performed on a [employer], 03/11/2021 Clinical data: POST MENOPAUSAL Findings: The first 4 lumbar vertebral bodies demonstrated the bone mineral density of 0.983 g/cm2 for a young adult T score of -1.6. There is a levoscoliosis of the lumbar spine. Measurement of the left hip reveals a bone mineral density of 0.722 g/cm2 with a young adult T score of -2.3. Measurement of the right hip reveals the bone mineral density of 0.684 g/cm2 for young adult T score of -2.6. XR/XR DEXA axial skeleton* [id number] Impression: 1. Osteoporosis of the right hip. 2. Osteopenia of the left hip and lumbar spine.
== END 2021-03-11 12:59 | disposition home or self-care (01) ==
PROVIDERS: PCP Family Medicine; Visit Provider Nurse Practitioner Family
DX: Z78.0 Asymptomatic menopausal state (principal); M81.0 Age-related osteoporosis without current pathological fracture; M85.88 Other specified disorders of bone density and structure, other site
CPT/HCPCS: 77080

== ENCOUNTER → 2021-04-19 08:38 | Outpatient (BNVA) | payer MEDICARE, MEDICAID, SELFPAY | PROVIDERS: PCP Family Medicine; Visit Provider Specialist | DX: G30.9 Alzheimer's disease, unspecified (principal); F02.80 Dementia in other diseases classified elsewhere, unspecified severity, without behavioral disturbance, psychotic disturbance, mood disturbance, and anxiety; G91.8 Other hydrocephalus | CPT/HCPCS: 96116; 99214 ==

== ENCOUNTER 2021-05-18 09:27 | Outpatient (RCR) | payer MEDICARE, MEDICAID, SELFPAY | END 2021-05-28 23:59 | disposition home or self-care (01) | LOC: SPT 09:27 | PROVIDERS: PCP Family Medicine; Referring Provider Family Medicine; Visit Provider Family Medicine | DX: M54.2 Cervicalgia (principal); G89.29 Other chronic pain | CPT/HCPCS: 97162; 97530 ==

== ENCOUNTER 2021-05-29 06:00 | Outpatient (RCR) | payer MEDICARE, MEDICAID, SELFPAY | END 2021-06-28 23:59 | disposition home or self-care (01) | LOC: SPT 06:00 | PROVIDERS: PCP Family Medicine; Referring Provider Family Medicine; Visit Provider Family Medicine | DX: M54.2 Cervicalgia (principal); G89.29 Other chronic pain | CPT/HCPCS: 97110; 97530 ==

== ENCOUNTER 2021-06-13 11:18 | Emergency (ER) | payer MEDICARE, MEDICAID, SELFPAY ==
[2021-06-13 11:22] VITALS: BP 121/95; PULSE 80; RESP 16; TEMP 36.7; O2SAT 94; BMI 30.2
--- NOTE | 2021-06-13 11:33 | XRR_ITS ---
PROCEDURE INFORMATION: Exam: XR Chest Exam date and time: 06/13/2021 11:33 AM Age: 70 years old Clinical indication: Cough and dyspnea; Prior surgery; Surgery type: Open heart; Patient HX: --chest pain, SOB, decreased BP; Additional info: Dyspnea/cough TECHNIQUE: Imaging protocol: XR of the chest. Views: 1 view. Total images: 1 COMPARISON: CR XR chest 1V portable [id number] 10/06/2020 6:36 PM FINDINGS: Lungs: Coarse chronic pulmonary markings. Nonspecific left mid lung bibasilar opacities, favoring pneumonia. Pleural spaces: Unremarkable. No pleural effusion. No pneumothorax. Heart/Mediastinum: Heart is enlarged but stable when compared to the prior exam. Bones/joints: Changes of sternotomy are noted. Healed right proximal humeral fracture.Diffuse osteopenia noted. XR/XR chest 1V portable [id number] IMPRESSION: 1. Heart is enlarged but stable when compared to the prior exam. 2. Coarse chronic pulmonary markings. 3. Nonspecific left mid lung bibasilar opacities, favoring pneumonia.
--- NOTE | 2021-06-13 11:33 | ECG_ITS ---
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 Measurements Intervals [place] Rate: 88 P: [place]: QRS: 16 QRSD: 126 T: 7 QT: 409 QTc: 495 Interpretive Statements ATRIAL FIBRILLATION MODERATE INTRAVENTRICULAR CONDUCTION DELAY [110+ ms QRS DURATION] ABNORMAL RHYTHM ECG Compared to ECG 11/11/2020 12:29:54 Myocardial infarct finding no longer present Electronically Signed On 06-13-2021 23:57:24 CDT by Katrin Petit M.D. [id number] f
--- NOTE | 2021-06-13 11:36 | ED_ITS ---
HPI - Chest Pain General: Chief Complaint: Chest Pain Stated Complaint: Chest pain, shortness of breath, low bp Time Seen by Provider: 06/13/21 11:28 History of Present Illness: HPI narrative: 70-year-old female with a known history of coronary disease diabetes and atrial fibrillation. States she has had chest pain progressively worsening over the last 3 days. MD complaint: chest pain Pertinent past history: coronary artery disease Timing of current episode: episodic Prior episodes: Yes Onset: during rest Pain location: left chest Pain radiation: none Severity: mild Quality: aching Relieving factors: nothing Exacerbating factors: nothing Associated symptoms: Deny abdominal pain, diaphoresis, dyspnea, fever(s), leg edema, nausea, palpitations, sense of impending doom, syncope or vomiting Treatment prior to arrival: none Review of Systems Const: Denies: fever(s) or diaphoresis ENMT: Denies: throat pain, ear or mastoid pain, nasal discharge or nasal congestion Card: Denies: palpitations or syncope Resp: Denies: dyspnea GI: Denies: abdominal pain, nausea or vomiting : Denies: flank pain, difficulty voiding, dysuria, urinary frequency or urinary urgency Skin/Breast: Denies: rash or pruritus PFSH ED PFSH: Medical History Anemia in chronic illness Back pain with risk for osteoporosis CAD (coronary artery disease) CHF (congestive heart failure) Chronic atrial fibrillation Chronic constipation Chronic neck and back pain CKD (chronic kidney disease) stage 2, GFR 60-89 ml/min Enrolled in chronic care management GERD (gastroesophageal reflux disease) Hyperlipidemia Hypertension Hypothyroid Insomnia Memory impairment of gradual onset Urinary retention Surgical History H/O section Mitral valve replaced valve replacement 1994 S/P cholecystectomy Family History Other CAD (coronary artery disease) Diabetes Social History Smoking and tobacco status: never smoked Alcohol intake: never Household members: spouse Housing: House Female Reproductive History: Para: 1 Physical Exam Const: COMMON NORMALS: no acute distress GENERAL APPEARANCE: cooperative and comfortable ORIENTATION/CONSCIOUSNESS: Yes awake, Yes oriented to person, Yes oriented to place and Yes oriented to time HENMT: COMMON NORMALS: normocephalic, atraumatic, hearing grossly normal bilaterally, external ears normal, EAC's normal, TM's normal bilaterally, Normal nasal mucous membranes and turbinates present, moist oral mucous membranes and oropharynx normal HEAD & SCALP: normocephalic and atraumatic NOSE: Normal nasal mucous membranes and turbinates present EXTERNAL EAR: Yes external ears normal EXTERNAL AUDITORY CANAL: EAC's normal TYMPANIC MEMBRANE: TM's normal bilaterally Neck/C-Spine: COMMON NORMALS: no JVD Resp: COMMON NORMALS: normal respiratory effort, No retractions and No use of accessory muscles AUSCULTATION: rales (Left base) Cardio: COMMON NORMALS: no JVD, regular rate, regular rhythm and No murmurs present (Cardio) RATE: regular rate RHYTHM: regular rhythm GI: COMMON NORMALS: Soft to palpation and No hepatosplenomegaly present AUSCULTATION: Yes normoactive bowel sounds PALPATION: Yes Soft to palpation, No Tenderness to palpation present (GI), No Guarding due to palpation present (GI) and Yes No hepatosplenomegaly present Extremity: COMMON NORMALS: normal to inspection, capillary refill normal, no clubbing, cyanosis or edema, no calf tenderness and no pedal edema Neuro: SENSORIUM/ORIENTATION: Yes oriented to person, Yes oriented to place and Yes oriented to time Skin: COMMON NORMALS: no rashes or lesions noted GENERAL SKIN EXAM: no rashes or lesions noted Course Vital Signs: Vital signs: Vital Signs Temperature 98.1 F 06/13/21 11:22 Pulse Rate 89 06/13/21 14:50 Respiratory Rate 18 06/13/21 14:50 Blood Pressure 134/87 06/13/21 14:50 Pulse Oximetry 96 06/13/21 14:50 MDM - Chest Pain MDM Narrative: Medical decision making narrative: All stable pneumonia oxygen sats are good will discharge home with Levaquin. Patient's troponins negative think the chest discomfort is coming from her pneumonia her rapid antigen is negative PCR is pending maintain self quarantine until resulted Lab Data: Labs: Lab Results 06/13/21 06/13/21 06/13/21 Range/Units 11:49 11:49 11:49 WBC 8.2 (4.0-10.0) 10^3/ uL RBC 3.75 L (4.1-5.3) 10^6/u L Hgb 12.5 (11.5-15.3) g/dL Hct 37.8 (37.0-47.0) % MCV 100.8 H (81-99) fl MCH 33.3 (28.0-34.0) pg MCHC 33.1 (30.0-36.0) g/dL RDW 12.9 (12.1-15.1) % Plt Count 337 (130-400) 10^3/c mm MPV 9.4 (7.4-10.4) fL Neut % (Auto) 64.0 % Lymph % (Auto) 18.4 % [place] % (Auto) 10.9 % Eos % (Auto) 5.1 % Baso % (Auto) 1.2 % Neut # (Auto) 5.26 (1.8-7.7) 10^3/u L Lymph # (Auto) 1.5 (0.8-4.8) 10^3/u L [place] # (Auto) 0.9 (0.2-0.9) 10^3/u L Eos # (Auto) 0.4 (0.0-0.8) 10^3/u L Baso # (Auto) 0.1 (0.0-0.1) 10^3/u L Nucleated RBC % (a uto) 0 % Nucleated RBCs # 0.0 /100WBC Sodium 138 (136-145) mmol/L Potassium 4.8 (3.5-5.1) mmol/L Chloride 104 (98-107) mmol/L Carbon Dioxide 25 (22-29) mmol/L Anion Gap 13.8 (5-19) BUN 15 (8-23) mg/dL Creatinine 0.7 (0.5-0.9) mg/dL GFR Calculation Not Reportable Glucose 89 (65-115) mg/dL Calculated Osmolal ity 286 (285-295) mOsm/k g Calcium 9.3 (8.5-10.5) mg/dL Total Bilirubin 0.8 (0.15-1.2) mg/dL AST 40 H (0-32) U/L ALT 22 (0-33) U/L Alkaline Phosphata se 210 H (35-105) IU/L Troponin T Baselin e 11 H (0-10) ng/L Troponin T 120 Min [place] (0-10) ng/L Delta Troponin T (0-10) ABS# NT-Pro-B Natriuret Pep (0-125) pg/mL Total Protein 7.1 (6.6-8.7) g/dL Albumin 4.0 (3.5-5.2) g/dL Globulin 3.1 (1.3-4.6) g/dL Nasal/Oral COVID-1 9 PCR SARS-CoV-2 Ag (Rap id) (Negative) 06/13/21 06/13/21 06/13/21 Range/Units 11:49 13:11 13:11 WBC (4.0-10.0) 10^3/ uL RBC (4.1-5.3) 10^6/u L Hgb (11.5-15.3) g/dL Hct (37.0-47.0) % MCV (81-99) fl MCH (28.0-34.0) pg MCHC (30.0-36.0) g/dL RDW (12.1-15.1) % Plt Count (130-400) 10^3/c mm MPV (7.4-10.4) fL Neut % (Auto) % Lymph % (Auto) % [place] % (Auto) % Eos % (Auto) % Baso % (Auto) % Neut # (Auto) (1.8-7.7) 10^3/u L Lymph # (Auto) (0.8-4.8) 10^3/u L [place] # (Auto) (0.2-0.9) 10^3/u L Eos # (Auto) (0.0-0.8) 10^3/u L Baso # (Auto) (0.0-0.1) 10^3/u L Nucleated RBC % (a uto) % Nucleated RBCs # /100WBC Sodium (136-145) mmol/L Potassium (3.5-5.1) mmol/L Chloride (98-107) mmol/L Carbon Dioxide (22-29) mmol/L Anion Gap (5-19) BUN (8-23) mg/dL Creatinine (0.5-0.9) mg/dL GFR Calculation Glucose (65-115) mg/dL Calculated Osmolal ity (285-295) mOsm/k g Calcium (8.5-10.5) mg/dL Total Bilirubin (0.15-1.2) mg/dL AST (0-32) U/L ALT (0-33) U/L Alkaline Phosphata se (35-105) IU/L Troponin T Baselin e (0-10) ng/L Troponin T 120 Min [place] (0-10) ng/L Delta Troponin T (0-10) ABS# NT-Pro-B Natriuret Pep 823 H (0-125) pg/mL Total Protein (6.6-8.7) g/dL Albumin (3.5-5.2) g/dL Globulin (1.3-4.6) g/dL Nasal/Oral COVID-1 9 PCR Cancelled SARS-CoV-2 Ag (Rap id) Negative (Negative) 06/13/21 Range/Units 14:05 WBC (4.0-10.0) 10^3/ uL RBC (4.1-5.3) 10^6/u L Hgb (11.5-15.3) g/dL Hct (37.0-47.0) % MCV (81-99) fl MCH (28.0-34.0) pg MCHC (30.0-36.0) g/dL RDW (12.1-15.1) % Plt Count (130-400) 10^3/c mm MPV (7.4-10.4) fL Neut % (Auto) % Lymph % (Auto) % [place] % (Auto) % Eos % (Auto) % Baso % (Auto) % Neut # (Auto) (1.8-7.7) 10^3/u L Lymph # (Auto) (0.8-4.8) 10^3/u L [place] # (Auto) (0.2-0.9) 10^3/u L Eos # (Auto) (0.0-0.8) 10^3/u L Baso # (Auto) (0.0-0.1) 10^3/u L Nucleated RBC % (a uto) % Nucleated RBCs # /100WBC Sodium (136-145) mmol/L Potassium (3.5-5.1) mmol/L Chloride (98-107) mmol/L Carbon Dioxide (22-29) mmol/L Anion Gap (5-19) BUN (8-23) mg/dL Creatinine (0.5-0.9) mg/dL GFR Calculation Glucose (65-115) mg/dL Calculated Osmolal ity (285-295) mOsm/k g Calcium (8.5-10.5) mg/dL Total Bilirubin (0.15-1.2) mg/dL AST (0-32) U/L ALT (0-33) U/L Alkaline Phosphata se (35-105) IU/L Troponin T Baselin e (0-10) ng/L Troponin T 120 Min [place] 11.63 H (0-10) ng/L Delta Troponin T 0.63 (0-10) ABS# NT-Pro-B Natriuret Pep (0-125) pg/mL Total Protein (6.6-8.7) g/dL Albumin (3.5-5.2) g/dL Globulin (1.3-4.6) g/dL Nasal/Oral COVID-1 9 PCR SARS-CoV-2 Ag (Rap id) (Negative) Discharge Plan Discharge Patient Disposition: Home Clinical Impression: Pneumonia, Chronic atrial fibrillation, Atypical chest pain Condition: Stable Prescriptions: New levofloxacin 500 mg tablet 500 mg PO DAILY 7 Days RF: 0 No Action nitroglycerin [Nitrostat] 0.4 mg tablet, sublingual 0.4 mg SUBLINGUAL Q5M PRN (Reason: chest pains) RF: 0 meclizine 12.5 mg tablet 12.5 mg PO Q6H PRN (Reason: UNKNOWN) RF: 0 potassium chloride 20 mEq tablet extended release 20 meq PO BID@0700,1900 RF: 0 metoprolol tartrate 37.5 mg tablet 37.5 mg PO Q12H Qty: 180 RF: 3 hydroxyzine HCl 25 mg tablet 25 mg PO TID PRN (Reason: UNKNOWN) RF: 0 warfarin 3 mg Tablet See Rx Instructions .ROUTE .COMPLEX RF: 0 terbinafine HCl 1 % Cream 1 applic TOPICAL BID@0700,1900 RF: 0 [place] 5-325 mg Tablet 1 tab PO Q6H PRN (Reason: Pain) RF: 0 galantamine 4 mg tablet 4 mg PO BID@0700,1700 RF: 0 ferrous sulfate 325 mg (65 mg iron) tablet,delayed release (DR/EC) 325 mg PO EVERY OTHER DAY Qty: 15 RF: 0 amiodarone 200 mg Tablet 200 mg PO DAILY@0700 RF: 0 tramadol 50 mg Tablet 50 mg PO BEDTIME PRN (Reason: Pain) RF: 0 warfarin 2 mg Tablet See Rx Instructions .ROUTE .COMPLEX RF: 0 furosemide 40 mg tablet 40 mg PO DAILY@0700 RF: 0 atorvastatin 40 mg tablet 40 mg PO DAILY@20 RF: 0 venlafaxine 150 mg capsule,extended release 24hr 150 mg PO DAILY@0700 RF: 0 levothyroxine [Euthyrox] 75 mcg tablet 75 mcg PO DAILY@0700 RF: 0 pantoprazole 40 mg tablet,delayed release (DR/EC) 40 mg PO DAILY@0700 RF: 0 Discharge Orders: Discharge ED (Routine); Ordered 06/13/21 Ordered By: Josse Ferrer Referrals: Danny Marmolejo MD [Primary Care Provider] - Discharge Diet: Usual diet Discharge Activity: Increase activity as tolerated Patient Instructions: Opioid Safety Coding Level of Care Code ED Cooper Helper for Inrda Carmona
[2021-06-13 11:52] VITALS: BP 121/95; PULSE 92; RESP 20; O2SAT 92
[2021-06-13 11:59] LABS: Basophils # 0.1 10^3/uL (0.0-0.1); Basophils % 1.2 %; Eosinophils # 0.4 10^3/uL (0.0-0.8); Eosinophils % 5.1 %; Hematocrit 37.8 % (37.0-47.0); Hemoglobin 12.5 g/dL (11.5-15.3); Lymphocytes # 1.5 10^3/uL (0.8-4.8); Lymphocytes % 18.4 %; Mean Corpuscular HGB Conc 33.1 g/dL (30.0-36.0); Mean Corpuscular Hemoglobin 33.3 pg (28.0-34.0); Mean Corpuscular Volume 100.8 fl (81-99); Mean Platelet Volume 9.4 fL (7.4-10.4); Monocytes # 0.9 10^3/uL (0.2-0.9); Monocytes % 10.9 %; Neutrophils # 5.26 10^3/uL (1.8-7.7); Nucleated Red Blood Cells % 0 %; Platelet Count 337 10^3/cmm (130-400); Red Blood Count 3.75 10^6/uL (4.1-5.3); Red Cell Distribution Width 12.9 % (12.1-15.1); White Blood Count 8.2 10^3/uL (4.0-10.0)
[2021-06-13 12:16] LABS: Alanine Aminotransferase 22 U/L (0-33); Alkaline Phosphatase 210 IU/L (35-105); Aspartate Amino Transferase 40 U/L (0-32); Blood Urea Nitrogen 15 mg/dL (8-23); Calcium 9.3 mg/dL (8.5-10.5); Carbon Dioxide 25 mmol/L (22-29); Chloride 104 mmol/L (98-107); Globulin 3.1 g/dL (1.3-4.6); Glucose 89 mg/dL (65-115); Osmolality Calculated 286 mOsm/kg (285-295); Sodium 138 mmol/L (136-145); Total Bilirubin 0.8 mg/dL (0.15-1.2); Total Protein 7.1 g/dL (6.6-8.7)
[2021-06-13 12:18] LABS: Anion Gap 13.8 (5-19); Potassium 4.8 mmol/L (3.5-5.1)
[2021-06-13 12:29] LABS: Troponin(5th) Baseline 11 ng/L (0-10)
[2021-06-13 12:54] LABS: NT Pro B Type Natriuretic Pept 823 pg/mL (0-125)
--- NOTE | 2021-06-13 13:33 | ECG_ITS ---
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 Measurements Intervals [place] Rate: 75 P: [place]: QRS: 29 QRSD: 129 T: 1 QT: 432 QTc: 483 Interpretive Statements ATRIAL FIBRILLATION MODERATE INTRAVENTRICULAR CONDUCTION DELAY [110+ ms QRS DURATION] ABNORMAL RHYTHM ECG Compared to ECG 11/11/2020 12:29:54 Myocardial infarct finding no longer present Electronically Signed On 06-14-2021 0:08:53 CDT by Katrin Petit M.D. [id number]
[2021-06-13 13:51] LABS: SARS Covid-2 Antigen Negative (Negative)
[2021-06-13] MEDS: FUROsemide 10 mg/mL SDV 4mL 40 MG IVP (14:08)
[2021-06-13 14:27] VITALS: BP 117/67; PULSE 94; RESP 24; O2SAT 92
[2021-06-13 14:46] LABS: Troponin 5 2HR 11.63 ng/L (0-10); Troponin 5 2HR Delta 0.63 ABS# (0-10)
[2021-06-13 14:50] VITALS: BP 134/87; PULSE 89; RESP 18; O2SAT 96
[2021-06-13 15:36] VITALS: BP 131/84; PULSE 95; RESP 18; O2SAT 95
[2021-06-14 19:32] LABS: Quest SARS-CoV-2 RNA NOT DETECTED (NOT DETECTED)
== END 2021-06-13 15:33 | disposition home or self-care (01) ==
PROVIDERS: Emergency Provider Family Medicine; PCP Family Medicine
DX: R07.89 Other chest pain (principal); J18.9 Pneumonia, unspecified organism; I48.20 Chronic atrial fibrillation, unspecified; Z79.01 Long term (current) use of anticoagulants; I25.10 Atherosclerotic heart disease of native coronary artery without angina pectoris; I13.0 Hypertensive heart and chronic kidney disease with heart failure and stage 1 through stage 4 chronic kidney disease, or unspecified chronic kidney disease; N18.2 Chronic kidney disease, stage 2 (mild); I50.9 Heart failure, unspecified; E78.5 Hyperlipidemia, unspecified; Z20.822 Contact with and (suspected) exposure to COVID-19
CPT/HCPCS: 36415; 71045; 80053; 83880; 84484; 85025; 87426; 87635; 93005; 96374; 99284; J1940

== ENCOUNTER 2021-06-29 06:00 | Outpatient (RCR) | payer MEDICARE, MEDICAID, SELFPAY | END 2021-07-28 23:59 | disposition home or self-care (01) | LOC: SPT 06:00 | PROVIDERS: PCP Family Medicine; Referring Provider Family Medicine; Visit Provider Family Medicine | DX: G89.29 Other chronic pain (principal); M54.2 Cervicalgia | CPT/HCPCS: 97110; 97164 ==

== ENCOUNTER → 2021-08-15 09:39 | Outpatient (BNVA) | payer MEDICARE, MEDICAID, SELFPAY | PROVIDERS: PCP Family Medicine; Visit Provider Specialist | DX: G30.9 Alzheimer's disease, unspecified (principal); F02.80 Dementia in other diseases classified elsewhere, unspecified severity, without behavioral disturbance, psychotic disturbance, mood disturbance, and anxiety; Q04.8 Other specified congenital malformations of brain | CPT/HCPCS: 99213; 99214 ==

== ENCOUNTER 2021-09-30 06:00 | Outpatient (RCR) | payer MEDICARE, MEDICAID, SELFPAY | END 2021-10-28 23:59 | disposition home or self-care (01) | LOC: SPT 06:00 | PROVIDERS: PCP Family Medicine; Referring Provider Family Medicine; Visit Provider Family Medicine | DX: M54.2 Cervicalgia (principal) | CPT/HCPCS: 97110; 97161 ==

== ENCOUNTER 2021-09-30 09:46 | Outpatient (CLI) | payer MEDICARE, MEDICAID, SELFPAY ==
--- NOTE | 2021-09-30 | XR_ITS ---
WS: [id number] Humerus LEFT TECHNIQUE: 2 views of the left humerus CLINICAL INFORMATION: FELL, LT ARM PAIN COMPARISON: None. FINDINGS: Normal left humerus. No acute fracture dislocation. XR/[place] [id number] IMPRESSION: Normal left humerus.
--- NOTE | 2021-09-30 | XR_ITS ---
WS: [id number] KNEE LEFT TECHNIQUE: 3 views of the left knee CLINICAL INFORMATION: FELL, KNEE PAIN COMPARISON: None. FINDINGS: Soft tissue edema. 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 No acute fractures. No evidence of ac heriberto fracture dislocation. No significant effusion. Patella is normal. XR/XR knee LT 3V* [id number] IMPRESSION: Soft tissue edema. No acute fractures. Kellgren-Nael Classification: grade 3 (moderate): moderate multiple osteoph ytes, definite narrowing of joint space and some sclerosis and possible deformi ty of bone ends
--- NOTE | 2021-09-30 | XR_ITS ---
WS: [id number] TIBIA-FIBULA LEFT TECHNIQUE: 2 views of the left tibia-fibula CLINICAL INFORMATION: FELL, LT LEG PAIN COMPARISON: None. FINDINGS: No evidence of acute fracture dislocation. Normal visualized tibia and fibula. Normal soft tissues. XR/XR tibia fibula LT 2V [id number] IMPRESSION: No evidence of acute fracture dislocation.
== END 2021-09-30 09:47 | disposition home or self-care (01) ==
LOC: RADOUTREAD 10-03 10:32
PROVIDERS: PCP Family Medicine; Visit Provider Family Medicine
DX: M79.602 Pain in left arm (principal); M25.562 Pain in left knee

== ENCOUNTER → 2021-12-12 12:51 | Outpatient (BNVA) | payer MEDICARE, MEDICAID, SELFPAY | PROVIDERS: PCP Family Medicine; Visit Provider Specialist | DX: G30.9 Alzheimer's disease, unspecified (principal); F02.80 Dementia in other diseases classified elsewhere, unspecified severity, without behavioral disturbance, psychotic disturbance, mood disturbance, and anxiety; G93.89 Other specified disorders of brain; F81.9 Developmental disorder of scholastic skills, unspecified | CPT/HCPCS: 99213; 99214 ==

== ENCOUNTER → 2022-01-04 14:03 | Outpatient (BNVA) | payer MEDICARE, MEDICAID, SELFPAY | PROVIDERS: PCP Family Medicine; Visit Provider Nurse Practitioner Family | DX: I48.20 Chronic atrial fibrillation, unspecified (principal); R07.9 Chest pain, unspecified | CPT/HCPCS: 93246; 99214 ==

== ENCOUNTER → 2022-01-18 08:55 | Outpatient (BNVA) | payer MEDICARE, MEDICAID, SELFPAY | PROVIDERS: PCP Family Medicine; Visit Provider Nurse Practitioner Family | DX: I25.10 Atherosclerotic heart disease of native coronary artery without angina pectoris (principal); I48.20 Chronic atrial fibrillation, unspecified | CPT/HCPCS: 99214 ==

== ENCOUNTER 2022-01-28 01:36 | Emergency (ER) | payer MEDICARE, MEDICAID, SELFPAY ==
[2022-01-28] VITALS (11 sets, daily range): BP systolic 97–122; BP diastolic 63–86; PULSE 79–94; RESP 16–24; TEMP 36.7; O2SAT 90–95; BMI 32.1
--- NOTE | 2022-01-28 01:46 | XRR_ITS ---
PROCEDURE INFORMATION: Exam: XR Chest Exam date and time: 01/28/2022 1:49 AM Age: 71 years old Clinical indication: Chest pressure and chest wall pain; Prior surgery; Surgery type: Mitral valve; Patient HX: C/O chest pain. ; Additional info: Cp TECHNIQUE: Imaging protocol: XR of the chest. Views: 1 view. COMPARISON: CR XR chest 1V portable [id number] 06/13/2021 11:43 AM FINDINGS: Lungs: Decreased bilateral pulmonary opacities with residual left discoid atelectasis or scarring. Pleural spaces: Unremarkable. No pleural effusion. No pneumothorax. Heart/Mediastinum: Borderline to mild cardiomegaly. Bones/joints: Stable sternotomy. XR/XR chest 1V portable [id number] IMPRESSION: 1. Decreased bilateral pulmonary opacities with residual left discoid atelectasis or scarring. 2. Borderline to mild cardiomegaly.
--- NOTE | 2022-01-28 01:47 | ECG_ITS ---
[facility] Test Date: 2022-01-28 Pat Name: Odilia Ulloa Department: Room: Gender: Female Route Aide: : 1950 Requested By: Charlie Simmons Order Number: [id number] Supriya MD: Sumit Duarte M.D. Measurements Intervals [place] Rate: 92 P: CT: QRS: 30 QRSD: 121 T: 7 QT: 411 QTc: 509 Interpretive Statements ATRIAL FIBRILLATION MODERATE INTRAVENTRICULAR CONDUCTION DELAY [110+ ms QRS DURATION] ABNORMAL RHYTHM ECG Compared to ECG 06/13/2021 13:36:17 No significant changes Electronically Signed On 01-28-2022 11:32:46 CDT by Sumit Duarte M.D. [id number]
[2022-01-28 02:10] LABS: Basophils # 0.1 10^3/uL (0.0-0.1); Basophils % 1.5 %; Eosinophils # 0.5 10^3/uL (0.0-0.8); Eosinophils % 7.1 %; Hemoglobin 11.7 g/dL (11.5-15.3); Lymphocytes # 2.5 10^3/uL (0.8-4.8); Lymphocytes % 32.9 %; Mean Corpuscular HGB Conc 32.5 g/dL (30.0-36.0); Mean Corpuscular Hemoglobin 33.4 pg (28.0-34.0); Mean Corpuscular Volume 102.9 fl (81-99); Mean Platelet Volume 9.9 fL (7.4-10.4); Monocytes % 12.7 %; Neutrophils % 45.5 %; Nucleated Red Blood Cells % 0 %; Platelet Count 261 10^3/cmm (130-400); Red Cell Distribution Width 12.8 % (12.1-15.1); White Blood Count 7.5 10^3/uL (4.0-10.0)
[2022-01-28 02:38] LABS: Troponin(5th) Baseline 11 ng/L (0-10)
[2022-01-28 02:47] LABS: Alanine Aminotransferase 19 U/L (0-33); Albumin Level 4.1 g/dL (3.5-5.2); Alkaline Phosphatase 135 IU/L (35-105); Anion Gap 11.3 (5-19); Aspartate Amino Transferase 29 U/L (0-32); Blood Urea Nitrogen 17 mg/dL (8-23); Calcium 10.1 mg/dL (8.5-10.5); Carbon Dioxide 26 mmol/L (22-29); Chloride 104 mmol/L (98-107); Globulin 2.3 g/dL (1.3-4.6); Glucose 97 mg/dL (65-115); NT Pro B Type Natriuretic Pept 577 pg/mL (0-125); Osmolality Calculated 285 mOsm/kg (285-295); Potassium 4.3 mmol/L (3.5-5.1); Sodium 137 mmol/L (136-145); Total Bilirubin 0.6 mg/dL (0.15-1.2); Total Protein 6.4 g/dL (6.6-8.7)
--- NOTE | 2022-01-28 03:47 | ECG_ITS ---
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 Measurements Intervals [place] Rate: 93 P: [place]: QRS: 27 QRSD: 130 T: 7 QT: 417 QTc: 520 Interpretive Statements ATRIAL FIBRILLATION WITH ABERRANT CONDUCTION OR VENTRICULAR PREMATURE COMPLEXES MODERATE INTRAVENTRICULAR CONDUCTION DELAY [110+ ms QRS DURATION] ABNORMAL RHYTHM ECG Compared to ECG 01/28/2022 01:45:29 Ventricular premature complex(es) now present Aberrant conduction of supraventricular beat(s) now present Electronically Signed On 01-28-2022 11:36:57 CDT by Sumit Duarte M.D. [id number]
[2022-01-28 04:14] LABS: Troponin 5 2HR 9.57 ng/L (0-10)
--- NOTE | 2022-01-28 17:19 | W.ED.CHESTPA ---
HPI - Chest Pain General: Chief Complaint: Chest Pain Stated Complaint: CP Time Seen by Provider: 01/28/22 01:49 Source: patient History of Present Illness: 71 year old lady well known to the emergency department. She does have a history of cardiac disease including atrial fibrillation as well as coronary disease. She presents with chest discomfort that started at home. It is resolved on her arrival. She had taken nitroglycerin at home without any improvement. She complained of mild shortness of breath as well. She also complained of dizziness. These symptoms have essentially resolved in total. Onset: during rest Pain location: substernal Pain radiation: none Severity: moderate Quality: heaviness Relieving factors: nothing Context: other Associated symptoms: Reports dyspnea and nausea; Deny abdominal pain, diaphoresis, fever(s), leg edema, palpitations, syncope or vomiting Treatment prior to arrival: aspirin and nitroglycerin Review of Systems Const: Denies: fever(s) or diaphoresis ENMT: Denies: throat pain Card: Reports: chest pain; Denies: palpitations or syncope Resp: Reports: dyspnea; Denies: productive cough or non-productive cough GI: Reports: nausea; Denies: abdominal pain or vomiting Neuro: Denies: headache(s) Psych: Reports: anxiety PFSH ED PFSH: Medical History Anemia in chronic illness Back pain with risk for osteoporosis CAD (coronary artery disease) CHF (congestive heart failure) Chronic atrial fibrillation Chronic constipation Chronic neck and back pain CKD (chronic kidney disease) stage 2, GFR 60-89 ml/min Enrolled in chronic care management GERD (gastroesophageal reflux disease) Hyperlipidemia Hypertension Hypothyroid Insomnia Memory impairment of gradual onset Urinary retention Surgical History H/O section Mitral valve replaced valve replacement 1994 S/P cholecystectomy Family History Other CAD (coronary artery disease) Diabetes Social History Smoking and tobacco status: never smoked Alcohol intake: never Household members: spouse Housing: House Female Reproductive History: Para: 1 Physical Exam Const: COMMON NORMALS: no acute distress GENERAL APPEARANCE: cooperative and comfortable; not ill appearing HENMT: COMMON NORMALS: normocephalic and atraumatic HEAD & SCALP: normocephalic and atraumatic Eye: COMMON NORMALS: Equal, round and reactive pupils present and EOMs intact bilaterally PUPIL: Yes Equal, round and reactive pupils present Chest: COMMONS NORMALS: normal inspection of the chest Cardio: COMMON NORMALS: regular rate RATE: regular rate RHYTHM: abnormal rhythm irregularly irregular GI: COMMON NORMALS: Normal to inspection, nondistended, normoactive bowel sounds present PALPATION: Yes Tenderness to palpation present (GI) (mild epigastric) Neuro: ANT COMA SCALE: document GCS findings [place] coma scale eye opening: Spontaneous Ant coma scale verbal response: Orientated [place] coma scale motor response: Obey commands Ant coma scale total score: 15 Course Vital Signs: Vital signs: Vital Signs Temperature 98.1 F 01/28/22 01:38 Pulse Rate 90 01/28/22 05:20 Respiratory Rate 20 H 01/28/22 05:20 Blood Pressure 108/72 01/28/22 05:20 Pulse Oximetry 93 01/28/22 05:20 [facility] - Chest Pain Medical Decision Making This patient symptoms are resolved on her arrival. Her EKG showed atrial fibrillation with a controlled rate, and no acute St changes. Her first troponin was negative. Her delta is negative as well At two hours. Her chest X ray shows improved atelectasis slash infiltrate from prior. Her white blood cell count is normal. She has mild epigastric tenderness, and a history of hiatal hernia. This may be a culprit. On the monitor, she has not shown any uncontrolled rate that would lead to chest comfort. She has not been hypertensive. With resolution of her pain, she will be allowed home. Lab Data : 01/28/22 01:42 01/28/22 01:42 Radiology Impressions Chest X-Ray 01/28/22 01:46 IMPRESSION: 1. Decreased bilateral pulmonary opacities with residual left discoid atelectasis or scarring. 2. Borderline to mild cardiomegaly. Laboratory Results WBC 7.5 10^3/uL (4.0-10.0) 01/28/22 01:42 RBC 3.50 10^6/uL (4.1-5.3) L 01/28/22 01:42 Hgb 11.7 g/dL (11.5-15.3) 01/28/22 01:42 Hct 36.0 % (37.0-47.0) L 01/28/22 01:42 MCV 102.9 fl (81-99) H 01/28/22 01:42 MCH 33.4 pg (28.0-34.0) 01/28/22 01:42 MCHC 32.5 g/dL (30.0-36.0) 01/28/22 01:42 RDW 12.8 % (12.1-15.1) 01/28/22 01:42 Plt Count 261 10^3/cmm (130-400) 01/28/22 01:42 MPV 9.9 fL (7.4-10.4) 01/28/22 01:42 Neut % (Auto) 45.5 % 01/28/22 01:42 Lymph % (Auto) 32.9 % 01/28/22 01:42 Callahan % (Auto) 12.7 % 01/28/22 01:42 Eos % (Auto) 7.1 % 01/28/22 01:42 Baso % (Auto) 1.5 % 01/28/22 01:42 Neut # (Auto) 3.40 10^3/uL (1.8-7.7) 01/28/22 01:42 Lymph # (Auto) 2.5 10^3/uL (0.8-4.8) 01/28/22 01:42 Callahan # (Auto) 1.0 10^3/uL (0.2-0.9) H 01/28/22 01:42 Eos # (Auto) 0.5 10^3/uL (0.0-0.8) 01/28/22 01:42 Baso # (Auto) 0.1 10^3/uL (0.0-0.1) 01/28/22 01:42 Nucleated RBC % (auto) 0 % 01/28/22 01:42 Nucleated RBCs # 0.0 /100WBC 01/28/22 01:42 Sodium 137 mmol/L (136-145) 01/28/22 01:42 Potassium 4.3 mmol/L (3.5-5.1) 01/28/22 01:42 Chloride 104 mmol/L (98-107) 01/28/22 01:42 Carbon Dioxide 26 mmol/L (22-29) 01/28/22 01:42 Anion Gap 11.3 (5-19) 01/28/22 01:42 BUN 17 mg/dL (8-23) 01/28/22 01:42 Creatinine 0.8 mg/dL (0.5-0.9) 01/28/22 01:42 GFR Calculation Not Reportable 01/28/22 01:42 Glucose 97 mg/dL (65-115) 01/28/22 01:42 Calculated Osmolality 285 mOsm/kg (285-295) 01/28/22 01:42 Calcium 10.1 mg/dL (8.5-10.5) 01/28/22 01:42 Total Bilirubin 0.6 mg/dL (0.15-1.2) 01/28/22 01:42 AST 29 U/L (0-32) 01/28/22 01:42 ALT 19 U/L (0-33) 01/28/22 01:42 Alkaline Phosphatase 135 IU/L (35-105) H 01/28/22 01:42 Troponin T Baseline 11 ng/L (0-10) H 01/28/22 01:42 Troponin T 120 Minute 9.57 ng/L (0-10) 01/28/22 03:30 Delta Troponin T Not Reportable 01/28/22 03:30 NT-Pro-B Natriuret Pep 577 pg/mL (0-125) H 01/28/22 01:42 Total Protein 6.4 g/dL (6.6-8.7) L 01/28/22 01:42 Albumin 4.1 g/dL (3.5-5.2) 01/28/22 01:42 Globulin 2.3 g/dL (1.3-4.6) 01/28/22 01:42 Discharge Plan Discharge Patient Disposition: Home Clinical Impression: Chest pain Condition: Stable Prescriptions: No Action nitroglycerin [Nitrostat] 0.4 mg tablet, sublingual 0.4 mg SUBLINGUAL Q5M PRN (Reason: chest pains) 0RF galantamine 8 mg tablet 8 mg PO BID 0RF Rx Instructions: administer with AM and PM meals bismuth subsalicylate 525 mg/15 mL suspension 525 mg PO Q30M PRN0RF Rx Instructions: do not exceed 8 doses in a 24 hour period acetaminophen 325 mg capsule 650 mg PO Q6H PRN0RF meclizine 12.5 mg tablet 12.5 mg PO Q6H PRN (Reason: UNKNOWN) 0RF potassium chloride 20 mEq tablet extended release 20 meq PO BID@0700,1900 0RF hydroxyzine HCl 25 mg tablet 25 mg PO TID PRN (Reason: UNKNOWN) 0RF amiodarone 200 mg tablet 200 mg PO DAILY@0700 Qty: 90 1RF metoprolol tartrate 50 mg tablet 50 mg PO BID Qty: 180 3RF Rx Instructions: @07,20 warfarin 3 mg Tablet See Rx Instructions .ROUTE .COMPLEX 0RF Rx Instructions: 3 mg orally ON MON,WED, FRI, AND SUN AT 0700 [place] 5-325 mg Tablet 1 tab PO Q6H PRN (Reason: Pain) 0RF ferrous sulfate 325 mg (65 mg iron) tablet,delayed release (DR/EC) 325 mg PO EVERY OTHER DAY Qty: 15 0RF tramadol 50 mg Tablet 50 mg PO BEDTIME PRN (Reason: Pain) 0RF warfarin 2 mg Tablet See Rx Instructions .ROUTE .COMPLEX 0RF Rx Instructions: 2 mg orally ;TAKE 2 MG ON , , AND SAT. AT 0700. furosemide 40 mg tablet 40 mg PO DAILY@0700 0RF atorvastatin 40 mg tablet 40 mg PO DAILY@20 0RF venlafaxine 150 mg capsule,extended release 24hr 150 mg PO DAILY@0700 0RF levothyroxine [Euthyrox] 75 mcg tablet 75 mcg PO DAILY@0700 0RF pantoprazole 40 mg tablet,delayed release (DR/EC) 40 mg PO DAILY@0700 0RF Discharge Orders: Discharge ED (Routine); Ordered 01/28/22 Ordered By: Charlie Lyons Referrals: Danny Marmolejo MD [Primary Care Provider] - Patient Instructions: Chest Pain (ED) Activity Restrictions/Additional Instructions: Return for worsening chest pain, shortness of breath, fever, any other concerning symptoms. Coding Level of Care Code ED Health Information Systems Technician for Indra Carmona
== END 2022-01-28 05:20 | disposition home or self-care (01) ==
PROVIDERS: Emergency Provider Emergency Medicine; PCP Family Medicine
DX: R07.9 Chest pain, unspecified (principal); Z79.01 Long term (current) use of anticoagulants; I48.20 Chronic atrial fibrillation, unspecified; I25.10 Atherosclerotic heart disease of native coronary artery without angina pectoris; I12.9 Hypertensive chronic kidney disease with stage 1 through stage 4 chronic kidney disease, or unspecified chronic kidney disease; N18.2 Chronic kidney disease, stage 2 (mild); E78.5 Hyperlipidemia, unspecified; Z95.2 Presence of prosthetic heart valve
CPT/HCPCS: 71045; 80053; 83880; 84484; 85025; 93005; 99284

== ENCOUNTER 2022-03-08 11:39 | Outpatient (CLI) | payer MEDICARE, MEDICAID, SELFPAY ==
--- NOTE | 2022-03-08 11:50 | MM_ITS ---
WS: [id number] BILATERAL SCREENING DIGITAL BREAST TOMOSYNTHESIS MAMMOGRAM WITH CAD HISTORY: SCREENING COMPARISON: 02/14/2021, 12/08/2011 Bilateral CC and MLO views with tomosynthesis and synthetic mammography submitted. Computer aided det ection analyzed. Breast composition: There are scattered areas of fibroglandular density. No suspicious masses, microc alcifications or architectural distortion. Benign breast arterial calcifications. MM/[place] [id number] IMPRESSION: BI-RADS: 2-Benign FOLLOW UP: 1 Year Follow-up
== END 2022-03-08 11:40 | disposition home or self-care (01) ==
LOC: RAD 11:43
PROVIDERS: PCP Family Medicine; Visit Provider Family Medicine
DX: Z12.31 Encounter for screening mammogram for malignant neoplasm of breast (principal)
CPT/HCPCS: 77063; 77067

== ENCOUNTER 2022-04-06 14:44 | Oncology outpatient (recurring) (ONCR) | payer MEDICARE, MEDICAID, SELFPAY ==
[2022-04-06 17:36] LABS: Basophils # 0.1 10^3/uL (0.0-0.1); Basophils % 1.5 %; Eosinophils # 0.4 10^3/uL (0.0-0.8); Eosinophils % 5.4 %; Hematocrit 38.1 % (37.0-47.0); Hemoglobin 12.8 g/dL (11.5-15.3); Lymphocytes # 2.4 10^3/uL (0.8-4.8); Lymphocytes % 36.8 %; Mean Corpuscular HGB Conc 33.6 g/dL (30.0-36.0); Mean Corpuscular Hemoglobin 33.4 pg (28.0-34.0); Mean Corpuscular Volume 99.5 fl (81-99); Mean Platelet Volume 10.1 fL (7.4-10.4); Monocytes # 0.7 10^3/uL (0.2-0.9); Monocytes % 10.6 %; Neutrophils # 2.95 10^3/uL (1.8-7.7); Neutrophils % 45.4 %; Nucleated Red Blood Cells % 0 %; Platelet Count 276 10^3/cmm (130-400); Red Blood Count 3.83 10^6/uL (4.1-5.3); Red Cell Distribution Width 13.2 % (12.1-15.1); White Blood Count 6.5 10^3/uL (4.0-10.0)
[2022-04-06 17:52] LABS: LAB Peripheral Smear Sent for Review
[2022-04-06 17:53] LABS: Reticulocyte % 3.5 % (0.5-2.0)
[2022-04-06 19:56] LABS: Alanine Aminotransferase 24 U/L (0-33); Albumin Level 4.6 g/dL (3.5-5.2); Alkaline Phosphatase 136 IU/L (35-105); Anion Gap 14.1 (5-19); Aspartate Amino Transferase 29 U/L (0-32); Blood Urea Nitrogen 15 mg/dL (8-23); Carbon Dioxide 28 mmol/L (22-29); Chloride 99 mmol/L (98-107); Globulin 2.8 g/dL (1.3-4.6); Glucose 85 mg/dL (65-115); Iron 94 ug/dL (37-145); Lactate Dehydrogenase 302 U/L (135-214); Osmolality Calculated 284 mOsm/kg (285-295); Percent Saturation 31.1 % (20-50); Potassium 4.1 mmol/L (3.5-5.1); Sodium 137 mmol/L (136-145); Total Bilirubin 0.9 mg/dL (0.15-1.2); Total Iron Binding Capacity 302 mcg/dl; Total Protein 7.4 g/dL (6.6-8.7); Unsaturated Iron Binding 208 ug/dL (112-347)
[2022-04-08 08:48] LABS: PROTEIN, TOTAL 7.1 g/dL (6.1-8.1)
[2022-04-10 11:28] LABS: KAPPA LIGHT CHAIN, FREE, SERUM 28.9 mg/L (3.3-19.4); KAPPA/LAMBDA LIGHT CHAINS FREE 1.34 (0.26-1.65); LAMBDA LIGHT CHAIN, FREE, SERU 21.5 mg/L (5.7-26.3)
[2022-04-10 16:22] LABS: ALBUMIN 4.2 g/dL (3.8-4.8); ALPHA 1 GLOBULIN 0.3 g/dL (0.2-0.3); ALPHA 2 GLOBULIN 0.5 g/dL (0.5-0.9); BETA 1 GLOBULIN 0.4 g/dL (0.4-0.6); BETA 2 GLOBULIN 0.3 g/dL (0.2-0.5); GAMMA GLOBULIN 1.3 g/dL (0.8-1.7)
== END 2022-04-06 23:59 | disposition home or self-care (01) ==
PROVIDERS: PCP Family Medicine; Visit Provider Internal Medicine Medical Oncology
DX: D50.9 Iron deficiency anemia, unspecified (principal); D75.89 Other specified diseases of blood and blood-forming organs; I10 Essential (primary) hypertension; E78.5 Hyperlipidemia, unspecified; I25.10 Atherosclerotic heart disease of native coronary artery without angina pectoris; Z79.899 Other long term (current) drug therapy
CPT/HCPCS: 80053; 83010; 83540; 83550; 83615; 83883; 84155; 84165; 85025; 85045; 99204

== ENCOUNTER 2022-05-08 14:28 | Oncology outpatient (recurring) (ONCR) | payer MEDICARE, MEDICAID, SELFPAY ==
[2022-05-08 15:24] LABS: Basophils # 0.1 10^3/uL (0.0-0.1); Basophils % 1.3 %; Eosinophils # 0.4 10^3/uL (0.0-0.8); Eosinophils % 5.7 %; Hematocrit 36.5 % (37.0-47.0); Hemoglobin 12.2 g/dL (11.5-15.3); Lymphocytes # 2.3 10^3/uL (0.8-4.8); Mean Corpuscular HGB Conc 33.4 g/dL (30.0-36.0); Mean Corpuscular Hemoglobin 33.7 pg (28.0-34.0); Mean Corpuscular Volume 100.8 fl (81-99); Mean Platelet Volume 10.1 fL (7.4-10.4); Monocytes # 0.7 10^3/uL (0.2-0.9); Monocytes % 11.2 %; Neutrophils # 2.74 10^3/uL (1.8-7.7); Neutrophils % 44.6 %; Nucleated Red Blood Cells % 0 %; Platelet Count 271 10^3/cmm (130-400); Red Blood Count 3.62 10^6/uL (4.1-5.3); Reticulocyte % 3.3 % (0.5-2.0); White Blood Count 6.1 10^3/uL (4.0-10.0)
[2022-05-08 15:25] LABS: LAB Peripheral Smear Sent for Review
[2022-05-08 15:53] LABS: Alanine Aminotransferase 25 U/L (0-33); Albumin Level 4.4 g/dL (3.5-5.2); Alkaline Phosphatase 116 IU/L (35-105); Anion Gap 13.4 (5-19); Aspartate Amino Transferase 35 U/L (0-32); Blood Urea Nitrogen 16 mg/dL (8-23); Calcium 9.9 mg/dL (8.5-10.5); Carbon Dioxide 25 mmol/L (22-29); Chloride 105 mmol/L (98-107); Globulin 2.9 g/dL (1.3-4.6); Glucose 94 mg/dL (65-115); Osmolality Calculated 289 mOsm/kg (285-295); Potassium 4.4 mmol/L (3.5-5.1); Sodium 139 mmol/L (136-145); Total Protein 7.3 g/dL (6.6-8.7)
[2022-05-08 15:55] LABS: Lactate Dehydrogenase 295 U/L (135-214)
== END 2022-05-28 23:59 | disposition home or self-care (01) ==
PROVIDERS: PCP Family Medicine; Visit Provider Internal Medicine Medical Oncology
DX: D75.89 Other specified diseases of blood and blood-forming organs (principal); D59.4 Other nonautoimmune hemolytic anemias; Z95.2 Presence of prosthetic heart valve; Z79.899 Other long term (current) drug therapy
CPT/HCPCS: 36415; 80053; 83010; 83615; 85025; 85045; 86880; 99214

== ENCOUNTER 2022-05-17 06:00 | Outpatient (RCR) | payer MEDICARE, MEDICAID, SELFPAY | END 2022-05-28 23:55 | disposition home or self-care (01) | LOC: SPT 06:00 | PROVIDERS: PCP Family Medicine; Referring Provider Family Medicine; Visit Provider Family Medicine | DX: M54.2 Cervicalgia (principal); G89.29 Other chronic pain | CPT/HCPCS: 97161 ==

== ENCOUNTER 2022-05-29 06:00 | Outpatient (RCR) | payer MEDICARE, MEDICAID, SELFPAY | END 2022-06-28 23:59 | disposition home or self-care (01) | LOC: SPT 06:00 | PROVIDERS: PCP Family Medicine; Referring Provider Family Medicine; Visit Provider Family Medicine | DX: M54.2 Cervicalgia (principal); G89.29 Other chronic pain | CPT/HCPCS: 97110 ==

== ENCOUNTER → 2022-06-28 10:28 | Outpatient (BNVA) | payer MEDICARE, MEDICAID, SELFPAY | PROVIDERS: PCP Family Medicine; Visit Provider Podiatrist Foot & Ankle Surgery | DX: B35.1 Tinea unguium (principal) | CPT/HCPCS: 11721; 99203 ==

== ENCOUNTER → 2022-09-25 08:54 | Outpatient (BNVA) | payer MEDICARE, MEDICAID, SELFPAY | PROVIDERS: PCP Family Medicine; Visit Provider Podiatrist Foot & Ankle Surgery | DX: B35.1 Tinea unguium (principal); L85.3 Xerosis cutis | CPT/HCPCS: 11721 ==

== ENCOUNTER → 2022-10-09 08:07 | Outpatient (BNVA) | payer MEDICARE, MEDICAID, SELFPAY | PROVIDERS: PCP Family Medicine; Visit Provider Specialist | DX: G30.9 Alzheimer's disease, unspecified (principal); F02.80 Dementia in other diseases classified elsewhere, unspecified severity, without behavioral disturbance, psychotic disturbance, mood disturbance, and anxiety | CPT/HCPCS: 99213 ==

== ENCOUNTER → 2022-11-02 11:34 | Outpatient (BNVA) | payer MEDICARE, MEDICAID, SELFPAY | PROVIDERS: PCP Family Medicine; Visit Provider Internal Medicine Cardiovascular Disease | DX: I25.10 Atherosclerotic heart disease of native coronary artery without angina pectoris (principal); I48.20 Chronic atrial fibrillation, unspecified; E78.5 Hyperlipidemia, unspecified; G30.9 Alzheimer's disease, unspecified; F02.80 Dementia in other diseases classified elsewhere, unspecified severity, without behavioral disturbance, psychotic disturbance, mood disturbance, and anxiety; I13.0 Hypertensive heart and chronic kidney disease with heart failure and stage 1 through stage 4 chronic kidney disease, or unspecified chronic kidney disease; N18.2 Chronic kidney disease, stage 2 (mild); I50.9 Heart failure, unspecified | CPT/HCPCS: 99214 ==

== ENCOUNTER 2023-03-29 13:10 | Outpatient (CLI) | payer MEDICARE, MEDICAID, SELFPAY ==
--- NOTE | 2023-03-29 13:35 | MM_ITS ---
WS: [id number] VIEWS: MLO and CC views both breasts. 3D digital tomosynthesis is also included in this exam. Comparison made with prior exam of 12/08/2011, 03/08/2022. 02/14/2021.. Findings: There was no sign of mass, architectural distortion or suspicious calcification in either breast. Sc attered areas of fibroglandular density MM/[place] [id number] Impression: BI-RADS: 2-Benign finding FOLLOW-UP: 1 Year Follow-up This mammogram was also analyzed by the Computer Aided Detection System R2 Imag e Director Of Product Development.
== END 2023-03-29 13:11 | disposition home or self-care (01) ==
PROVIDERS: PCP Family Medicine; Visit Provider Family Medicine
DX: Z12.31 Encounter for screening mammogram for malignant neoplasm of breast (principal)
CPT/HCPCS: 77063; 77067

== ENCOUNTER → 2023-04-10 09:03 | Outpatient (BNVA) | payer MEDICARE, MEDICAID, SELFPAY | PROVIDERS: PCP Family Medicine; Visit Provider Specialist | DX: G30.9 Alzheimer's disease, unspecified (principal); F02.80 Dementia in other diseases classified elsewhere, unspecified severity, without behavioral disturbance, psychotic disturbance, mood disturbance, and anxiety | CPT/HCPCS: 99213 ==

== ENCOUNTER → 2023-05-07 08:09 | Outpatient (BNVA) | payer MEDICARE, MEDICAID, SELFPAY | PROVIDERS: PCP Family Medicine; Visit Provider Podiatrist Foot & Ankle Surgery | DX: B35.1 Tinea unguium (principal); M79.671 Pain in right foot; M79.672 Pain in left foot; L85.3 Xerosis cutis; N18.2 Chronic kidney disease, stage 2 (mild) | CPT/HCPCS: 11721 ==

== ENCOUNTER → 2023-05-14 11:12 | Outpatient (BNVA) | payer MEDICARE, MEDICAID, SELFPAY | PROVIDERS: PCP Family Medicine; Visit Provider Internal Medicine Cardiovascular Disease | DX: I25.5 Ischemic cardiomyopathy (principal); I42.0 Dilated cardiomyopathy; R06.02 Shortness of breath; I25.10 Atherosclerotic heart disease of native coronary artery without angina pectoris; E78.5 Hyperlipidemia, unspecified; Z95.2 Presence of prosthetic heart valve; I48.20 Chronic atrial fibrillation, unspecified; I13.0 Hypertensive heart and chronic kidney disease with heart failure and stage 1 through stage 4 chronic kidney disease, or unspecified chronic kidney disease; N18.2 Chronic kidney disease, stage 2 (mild); I50.9 Heart failure, unspecified; Z79.01 Long term (current) use of anticoagulants | CPT/HCPCS: 36415; 80048; 83880; 99214 ==

== ENCOUNTER → 2023-07-16 09:21 | Outpatient (BNVA) | payer MEDICARE, MEDICAID, SELFPAY | PROVIDERS: PCP Family Medicine; Visit Provider Podiatrist Foot & Ankle Surgery | DX: B35.1 Tinea unguium (principal); M79.671 Pain in right foot; M79.672 Pain in left foot; L85.3 Xerosis cutis; N18.2 Chronic kidney disease, stage 2 (mild) | CPT/HCPCS: 11721 ==

== ENCOUNTER → 2023-07-20 11:48 | Outpatient (BNVA) | payer MEDICARE, MEDICAID, SELFPAY | PROVIDERS: PCP Family Medicine; Visit Provider Nurse Practitioner Family | DX: I25.10 Atherosclerotic heart disease of native coronary artery without angina pectoris (principal); I13.0 Hypertensive heart and chronic kidney disease with heart failure and stage 1 through stage 4 chronic kidney disease, or unspecified chronic kidney disease; N18.2 Chronic kidney disease, stage 2 (mild); I50.9 Heart failure, unspecified | CPT/HCPCS: 99214 ==

== ENCOUNTER 2023-08-16 10:29 | Outpatient (CLI) | payer MEDICARE, MEDICAID, SELFPAY ==
--- NOTE | 2023-08-16 | ECG_ITS ---
[facility] Test Date: 2023-08-16 Pat Name: Odilia Ulloa Department: Room: Gender: Female Care Transition Manager: : 1950 Requested By: Coty Sibley Order Number: [id number] Supriya MD: Katrin Petit M.D. Interpretive Statements NAME OF STUDY: LEXISCAN SESTAMIBI STRESS TEST INDICATION: Chest Pain, PROCEDURE: At the baseline, the EKG revealed atrial fibrillation with a controlled ventricular response rate of 76 bpm. Some nonspecific T wave changes. The baseline heart was 70 bpm with a blood pressue of 105/59 mm of Hg Lexiscan was infused over a period of 20 seconds. A total of 0.4 milligrams of Lexiscan was infused. The stress phase was continued for a total of 5 minutes. Heart rate at the end of the stress phase was 83 bpm with a blood pressure 104/68 mm of Hg. The EKG at the peak infusion revealed no significant changes. Sestamibi was injected 20 seconds after the Lexiscan infusion. Heart rate at the end of the recovery phase was 77 bpm with a blood pressure of 109/75 mm of Hg. CONCLUSION: 1. No significant EKG changes with the LexiScan infusion 2. No LexiScan induced chest pain or cardiac arrhythmia 3. Normal blood pressure and heart rate response 4. Sestamibi/sestamibi perfusion scan pending; see separate report. Electronically Signed On 08-17-2023 15:32:39 CDT by Katrin Petit M.D. [id number]
--- NOTE | 2023-08-16 10:44 | NMCV_ITS ---
NM ankita perf SPECT r/s* [id number] Odilia Ulloa Age: 72 Gender: F : 1950 Exam Date: 08/16/2023 11:50 Ordering Phys: Coty Sibley Technologist: BRIAN Doan Exam Location: [facility] Indications: CHEST PAIN STRESS TEST Please see separate stress test report in [facility] for full findings IMAGE PROTOCOL Rest/Stress 1 Lexiscan Day Radiopharmaceutical Dose (mCi) Administration Site Administered by Rest: Tc-99m 10.6 IV Jose Daniel Winslow, TOE TRIMMER Sestamibi Stress:Tc-99m 32.6 IV Jose Daniel Winslow, TOE TRIMMER Sestamibi Rest: 16-Aug-2023 60 Discovery 630 Stress: 16-Aug-2023 30 Discovery 630 0.4mg Lexiscan. Supine position only as patient was unable to lay prone. SPECT RESULTS Technical Quality: Excellent Raw Data Analysis: Normal Image Corrections: No attenuation or motion correction applied Summed Stress Score: 0 Summed Rest Score: 2 Summed Difference Score: 0 PERFUSION FINDINGS An area of slightly decreased tracer uptake was noted in the mid inferolateral and apical lateral regions with no significant reversibility FUNCTIONAL RESULTS (calculated via Gated SPECT) Stress Image LV EF (%): 64 Stress EDV (mL):59 TID: 1.08 Stress ESV (mL):21 FUNCTIONAL FINDINGS: Segmental wall motion analysis revealing no gross wall motion abnormalities IMPRESSIONS 1. Myocardial perfusion imaging revealing small area of slightly decreased persistent decreased tracer uptake in the mid inferolateral and apical lateral regions suggesting myocardial scarring versus attenuation artifact 2. Normal LV ejection fraction of 64% 3. LV wall motion analysis revealing no gross wall motion abnormalities. 4. Normal LV volume Low probability for coronary ischemia, based on the above findings. Compared to the study from 08/19/2018, there may not be a significant change Dr Katrin Petit MD [facility] (Electronically Signed) Final Date: 16 August 2023 14:11 S
[2023-08-16 11:10] VITALS: BMI 31.8
[2023-08-16] MEDS: regadenoson 0.4 Mg/5 ml Syringe IVP (12:42)
[2023-08-16 12:50] VITALS: BP 104/60; PULSE 81
== END 2023-08-16 10:30 | disposition home or self-care (01) ==
LOC: CDL 10:31
PROVIDERS: PCP Family Medicine; Visit Provider Nurse Practitioner Family
DX: I25.5 Ischemic cardiomyopathy (principal); I42.0 Dilated cardiomyopathy; I25.10 Atherosclerotic heart disease of native coronary artery without angina pectoris
CPT/HCPCS: 36415; 78452; 93017; 96374; A9500; J2785

== ENCOUNTER → 2023-09-17 08:42 | Outpatient (BNVA) | payer MEDICARE, MEDICAID, SELFPAY | PROVIDERS: PCP Family Medicine; Visit Provider Podiatrist Foot & Ankle Surgery | DX: B35.1 Tinea unguium (principal); L85.3 Xerosis cutis; N18.2 Chronic kidney disease, stage 2 (mild); M72.2 Plantar fascial fibromatosis; E11.42 Type 2 diabetes mellitus with diabetic polyneuropathy; E11.22 Type 2 diabetes mellitus with diabetic chronic kidney disease | CPT/HCPCS: 11721; 99213 ==

== ENCOUNTER 2023-10-21 09:51 | Emergency (ER) | payer MEDICARE, MEDICAID, SELFPAY ==
--- NOTE | 2023-10-21 09:53 | XRR_ITS ---
PROCEDURE INFORMATION: Exam: XR Chest Exam date and time: 10/21/2023 10:52 AM Age: 72 years old Clinical indication: Pain; Chest pressure; Additional info: Cp TECHNIQUE: Imaging protocol: Radiologic exam of the chest. Views: 1 view. COMPARISON: CR XR chest 1V portable [id number] 01/28/2022 1:49 AM FINDINGS: Lungs: Unchanged chronic lung markings and/or linear atelectasis in the bilateral lower lungs. No focal consolidation. Pleural spaces: No large pleural effusion. No significant pneumothorax. Heart/Mediastinum: Cardiomediastinal silhouette is midline and enlarged, stable. Bones/joints: Stable changes of prior median sternotomy. No acute osseous findings. XR/XR chest 1V portable [id number] IMPRESSION: 1. No focal consolidation. 2. Unchanged chronic lung markings and/or linear atelectasis in the bilateral lower lungs. 3. Cardiomegaly, stable.
[2023-10-21 09:57] VITALS: BP 125/84; PULSE 79; RESP 17; O2SAT 97
--- NOTE | 2023-10-21 10:02 | ECG_ITS ---
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 Measurements Intervals [place] Rate: 86 P: 0 [place]: 0 QRS: 13 QRSD: 104 T: 34 QT: 364 QTc: 437 Interpretive Statements ATRIAL FIBRILLATION MODERATE ST DEPRESSION [0.05+ mV ST DEPRESSION] Compared to ECG 01/28/2022 03:36:07 ST (T wave) deviation now present Ventricular premature complex(es) no longer present Aberrant conduction of supraventricular beat(s) no longer present Intraventricular conduction delay no longer present Electronically Signed On 10-21-2023 11:40:55 BAR TENDER by Souleymane Wood M.D. [id number]
--- NOTE | 2023-10-21 10:31 | ED_ITS ---
HPI - Chest Pain 2 General: Chief Complaint: Chest Pain Stated Complaint: chest discomfort/dizzy Time Seen by Provider: 10/21/23 10:24 Source: patient Mode of arrival: ambulatory Limitations: no limitations History of Present Illness: 72-year-old female who states that she h as not been feeling well the last 2 days states that she has had nausea along with slight cough states she had some chest pains as well states chest pain since resolved. She is from [facility] had some sick contacts. She denies any vomiting denies any abdominal pain she denies any worsening improving factors has a history of A-fib. Associated symptoms: Reports nausea; Deny abdominal pain, dyspnea, fever(s) or vomiting Review of Systems 2 Const: Reports: malaise; Denies: fever(s), chills, body aches or change in appetite ENMT: Denies: throat pain or dental pain Card: Reports: chest pain Resp: Denies: dyspnea GI: Reports: nausea; Denies: abdominal pain, vomiting or diarrhea : Denies: dysuria Musc: Denies: neck pain or back pain Skin/Breast: Denies: rash Neuro: Denies: headache(s) PFSH ED 2 PFSH: Medical History Chronic anxiety History of iron deficiency anemia Alzheimer disease CKD (chronic kidney disease) stage 2, GFR 60-89 ml/min Hypertension CAD (coronary artery disease) CHF (congestive heart failure) Insomnia Hypothyroid Hyperlipidemia Chronic neck and back pain GERD (gastroesophageal reflux disease) Chronic atrial fibrillation Chronic constipation Surgical History H/O section H/O esophagogastroduodenoscopy 2011, 2016, and 2018 History of heart artery stent Coronary angioplasty/stent placement in 2011 and in 2012 Hx of colonoscopy 2018 Mitral valve replaced valve replacement 1994 S/P cholecystectomy Family History Other CAD (coronary artery disease) Diabetes Social History Smoking and tobacco/nicotine status: never used tobacco/nicotine Alcohol intake: never Substance/Drug Use: never Housing: Assisted Living Facility Marital status: Single Number of children: 1 Current occupational status: disabled Current gender identity: Female Female Reproductive History: Para: 1 Course 2 Vital Signs: Vital signs: Vital Signs Pulse Rate 93 10/21/23 13:27 Respiratory Rate 16 10/21/23 13:27 Blood Pressure 108/67 10/21/23 13:27 Pulse Oximetry 95 10/21/23 13:27 Oxygen Delivery Me thod Room Air 10/21/23 11:20 MDM - Chest Pain Medical Decision Making Patient presents here with chest pain she is well-appearing here blood work here is all normal she has no signs of acute coronary syndrome she is stable for discharge she is follow-up with PCP and return if worsening she understands agrees to plan. Medical Records I reviewed the patient's medical records. Lab Data I reviewed the patient's lab results. 10/21/23 10:30 10/21/23 10:30 Radiology Impressions Chest X-Ray 10/21/23 09:53 IMPRESSION: 1. No focal consolidation. 2. Unchanged chronic lung markings and/or linear atelectasis in the bilateral lower lungs. 3. Cardiomegaly, stable. Laboratory Results WBC 5.73 10^3/uL (3.29-11.43) 10/21/23 10:30 RBC 3.73 10^6/uL (3.85-5.65) L 10/21/23 10:30 Hgb 12.80 g/dL (11.27-16.99) 10/21/23 10:30 Hct 37.8 % (36-47) 10/21/23 10:30 MCV 101.3 fl (85-98) H 10/21/23 10:30 MCH 34.3 pg (27-33) H 10/21/23 10:30 MCHC 33.9 g/dL (30-55) 10/21/23 10:30 RDW 12.5 % (12.1-15.1) 10/21/23 10:30 Plt Count 239 10^3/cmm (157-399) 10/21/23 10:30 MPV 9.5 fL (7.4-10.4) 10/21/23 10:30 Neut % (Auto) 62.3 % 10/21/23 10:30 Lymph % (Auto) 22.5 % 10/21/23 10:30 Benzie % (Auto) 9.2 % 10/21/23 10:30 Eos % (Auto) 4.4 % 10/21/23 10:30 Baso % (Auto) 1.4 % 10/21/23 10:30 Neut # (Auto) 3.57 10^3/uL (1.8-7.7) 10/21/23 10:30 Lymph # (Auto) 1.3 10^3/uL (0.8-4.8) 10/21/23 10:30 Benzie # (Auto) 0.5 10^3/uL (0.2-0.9) 10/21/23 10:30 Eos # (Auto) 0.3 10^3/uL (0.0-0.8) 10/21/23 10:30 Baso # (Auto) 0.1 10^3/uL (0.0-0.1) 10/21/23 10:30 Nucleated RBC % (auto) 0 % 10/21/23 10:30 Nucleated RBCs # 0.0 /100WBC 10/21/23 10:30 Sodium 137 mmol/L (136-145) 10/21/23 10:30 Potassium 4.5 mmol/L (3.5-5.1) 10/21/23 10:30 Chloride 101 mmol/L (98-107) 10/21/23 10:30 Carbon Dioxide 26 mmol/L (22-29) 10/21/23 10:30 Anion Gap 14.5 (5-19) 10/21/23 10:30 BUN 15 mg/dL (8-23) 10/21/23 10:30 Creatinine 0.9 mg/dL (0.5-0.9) 10/21/23 10:30 GFR Calculation Not Reportable 10/21/23 10:30 Glucose 101 mg/dL (65-115) 10/21/23 10:30 Calculated Osmolality 285 mOsm/kg (285-295) 10/21/23 10:30 Calcium 10.5 mg/dL (8.5-10.5) 10/21/23 10:30 Total Bilirubin 1.1 mg/dL (0.15-1.2) 10/21/23 10:30 AST 48 U/L (0-32) H 10/21/23 10:30 ALT 37 U/L (0-33) H 10/21/23 10:30 Alkaline Phosphatase 108 U/L (35-105) H 10/21/23 10:30 Troponin T Baseline 13 ng/L (0-10) H 10/21/23 10:30 Troponin T 120 Minute 11.53 ng/L (0-10) H 10/21/23 12:27 Delta Troponin T -1.47 ABS# (0-10) L 10/21/23 12:27 Total Protein 7.1 g/dL (6.6-8.7) 10/21/23 10:30 Albumin 4.5 g/dL (3.5-5.2) 10/21/23 10:30 Globulin 2.6 g/dL (1.3-4.6) 10/21/23 10:30 Urine Color Straw (Yellow) 10/21/23 10:52 Urine Appearance Clear (CLEAR) 10/21/23 10:52 Urine pH 8 (5-7) H 10/21/23 10:52 Ur Specific [place] 1.010 (1.005-1.030) 10/21/23 10:52 Urine Protein Neg (Negative) 10/21/23 10:52 Urine Glucose (UA) Norm (Normal) 10/21/23 10:52 Urine Ketones Negative (Negative) 10/21/23 10:52 Urine Blood Neg (Negative) 10/21/23 10:52 Urine Nitrate Negative (Negative) 10/21/23 10:52 Urine Bilirubin Neg (Negative) 10/21/23 10:52 Prot Sulfosalicylic Acd Negative (Negative) 10/21/23 10:52 Urine Urobilinogen 1 mg/dL (Negative) H 10/21/23 10:52 Ur Leukocyte Esterase Negative (Negative) 10/21/23 10:52 Influenza Type A Ag negative (Negative) 10/21/23 10:52 Influenza Type B Ag negative (Negative) 10/21/23 10:52 SARS-CoV-2 Ag (Rapid) negative (Negative) 10/21/23 10:52 XR interpretation done by ED provider, pending radiology final review EKG Data EKG 1: I personally reviewed and interpreted this EKG as follows: EKG interpretation date: 10/21/23 EKG interpretation time: 10:02 Interpretation: afib hr [address] or t wave abnormalities qrs 104 qtc 408 EKG 2: I personally reviewed and interpreted this EKG as follows: EKG interpretation date: 10/21/23 EKG interpretation time: 12:13 Interpretation: afib hr [address] or t wave abnormalities qrs 112 qtc 423 Discharge Plan Discharge Patient Disposition: Home Clinical Impression: Chest pain Condition: Stable Prescriptions: No Action nitroglycerin [Nitrostat] 0.4 mg tablet, sublingual 0.4 mg SUBLINGUAL Q5M PRN (Reason: chest pains) bismuth subsalicylate 525 mg/15 mL suspension 525 mg PO Q30M PRN (Reason: Acid Reflux) Rx Instructions: do not exceed 8 doses in a 24 hour period acetaminophen 325 mg capsule 650 mg PO Q6H PRN (Reason: Pain) meclizine 12.5 mg tablet 12.5 mg PO Q6H PRN (Reason: Dizziness Or Vertigo) potassium chloride 20 mEq tablet extended release 20 meq PO BID@0700,1900 hydroxyzine HCl 25 mg tablet 25 mg PO TID PRN (Reason: Anxiety) folic acid 1 mg tablet 1 mg PO DAILY furosemide 40 mg tablet 60 mg PO DAILY@0700 Qty: 135 0RF spironolactone 25 mg tablet 25 mg PO DAILY Qty: 90 3RF tramadol 50 mg Tablet 50 mg PO Q6H PRN (Reason: Pain) warfarin 2 mg Tablet See Rx Instructions .ROUTE .COMPLEX Rx Instructions: 2 mg ON MON-WED-FRI atorvastatin 40 mg tablet 40 mg PO QPM venlafaxine 150 mg capsule,extended release 24hr 150 mg PO DAILY@0700 levothyroxine [Euthyrox] 75 mcg tablet 75 mcg PO DAILY@0700 pantoprazole 40 mg tablet,delayed release (DR/EC) 40 mg PO DAILY@0700 warfarin 3 mg tablet See Rx Instructions .ROUTE .COMPLEX Rx Instructions: 3 mg ON PBRX-IDHEA-MOY-SUN metoprolol tartrate 50 mg tablet 50 mg PO BID Natural Fiber Powder 1 tbsp PO DAILY vitamin O92-wdium acid 0.5-1 mg Tablet 2 tab PO DAILY amiodarone 200 mg tablet 200 mg PO DAILY losartan 25 mg tablet 25 mg PO DAILY memantine 10 mg tablet 10 mg PO BID galantamine 8 mg capsule,ext rel. pellets 24 hr 8 mg PO QAM Discharge Orders: Discharge ED (Routine); Ordered 10/21/23 Ordered By: Piyush Foster Referrals: Danny Marmolejo MD [Primary Care Provider] - 4-7 days Discharge Diet: Advance as tolerated Discharge Activity: Resume usual activity Patient Instructions: Chest Pain (ED) Coding Level of Care Code ED Rn Float for Indra Carmona
[2023-10-21] MEDS: sodium chloride 0.9% 500 ML 999 ML IV (10:42)
[2023-10-21 10:48] LABS: Basophils # 0.1 10^3/uL (0.0-0.1); Basophils % 1.4 %; Eosinophils # 0.3 10^3/uL (0.0-0.8); Eosinophils % 4.4 %; Hematocrit 37.8 % (36-47); Lymphocytes # 1.3 10^3/uL (0.8-4.8); Lymphocytes % 22.5 %; Mean Corpuscular HGB Conc 33.9 g/dL (30-55); Mean Corpuscular Hemoglobin 34.3 pg (27-33); Mean Corpuscular Volume 101.3 fl (85-98); Mean Platelet Volume 9.5 fL (7.4-10.4); Monocytes # 0.5 10^3/uL (0.2-0.9); Monocytes % 9.2 %; Neutrophils # 3.57 10^3/uL (1.8-7.7); Neutrophils % 62.3 %; Nucleated Red Blood Cells % 0 %; Platelet Count 239 10^3/cmm (157-399); Red Blood Count 3.73 10^6/uL (3.85-5.65); Red Cell Distribution Width 12.5 % (12.1-15.1); White Blood Count 5.73 10^3/uL (3.29-11.43)
[2023-10-21] MEDS: ondansetron 2 mg/ML SDV 2 mL 4 MG IVP (10:50)
[2023-10-21 10:56] LABS: Add Urine Microscopic? NO; Charge for UA Resulting for Rev
--- NOTE | 2023-10-21 10:57 | PC.PHAR ---
pt here from [facility]- medications verified using mar that came in with pt
[2023-10-21 11:02] LABS: Bilirubin Urine Neg (Negative); Blood Urine Neg (Negative); Glucose Urine UA Norm (Normal); Ketones Urine Negative (Negative); Leukocyte Esterase Urine Negative (Negative); Nitrate Urine Negative (Negative); Protein Urine Neg (Negative); Sulfosalicylic Acid Urine Negative (Negative); Urine Appearance Clear (CLEAR); Urine Color Straw (Yellow); Urobilinogen Urine 1 mg/dL (Negative); pH Urine 8 (5-7)
[2023-10-21 11:08] LABS: Alanine Aminotransferase 37 U/L (0-33); Albumin Level 4.5 g/dL (3.5-5.2); Alkaline Phosphatase 108 U/L (35-105); Anion Gap 14.5 (5-19); Aspartate Amino Transferase 48 U/L (0-32); Blood Urea Nitrogen 15 mg/dL (8-23); Calcium 10.5 mg/dL (8.5-10.5); Carbon Dioxide 26 mmol/L (22-29); Chloride 101 mmol/L (98-107); Globulin 2.6 g/dL (1.3-4.6); Glucose 101 mg/dL (65-115); Osmolality Calculated 285 mOsm/kg (285-295); Potassium 4.5 mmol/L (3.5-5.1); Sodium 137 mmol/L (136-145); Total Bilirubin 1.1 mg/dL (0.15-1.2); Total Protein 7.1 g/dL (6.6-8.7)
[2023-10-21 11:09] LABS: Troponin(5th) Baseline 13 ng/L (0-10)
[2023-10-21 11:12] LABS: Influenza A by IFA negative (Negative); Influenza B by IFA negative (Negative)
[2023-10-21 11:13] LABS: SARS Covid-2 Antigen negative (Negative)
[2023-10-21 11:20] VITALS: BP 117/67; PULSE 78; RESP 17; O2SAT 93; O2SAT 94
[2023-10-21 11:48] VITALS: BP 124/70; PULSE 88; RESP 18; O2SAT 94
--- NOTE | 2023-10-21 12:13 | ECG_ITS ---
[facility] Test Date: 2023-10-21 Pat Name: Odilia Ulloa Department: Room: Gender: Female Skirt Maker: : 1950 Requested By: Piyush Foster Order Number: [id number] Supriya MD: Souleymane Wood M.D. Measurements Intervals [place] Rate: 89 P: 0 [place]: 0 QRS: 36 QRSD: 112 T: 47 QT: 376 QTc: 459 Interpretive Statements ATRIAL FIBRILLATION WITH ABERRANT CONDUCTION OR VENTRICULAR PREMATURE COMPLEXES MODERATE INTRAVENTRICULAR CONDUCTION DELAY [110+ ms QRS DURATION] MINIMAL ST DEPRESSION [0.025+ mV ST DEPRESSION] Compared to ECG 10/21/2023 10:02:46 Ventricular premature complex(es) now present Aberrant conduction of supraventricular beat(s) now present Intraventricular conduction delay now present ST (T wave) deviation still present Electronically Signed On 10-21-2023 14:50:09 [employer] by Suoleymane Wood M.D. [id number]
[2023-10-21 12:58] VITALS: BP 115/74; PULSE 96; RESP 18; O2SAT 93
[2023-10-21 13:18] LABS: Troponin 5 2HR 11.53 ng/L (0-10)
[2023-10-21 13:19] LABS: Troponin 5 2HR Delta -1.47 ABS# (0-10)
[2023-10-21 13:27] VITALS: BP 108/67; PULSE 93; RESP 16; O2SAT 95
[2023-10-21 13:33] VITALS: BP 118/48; PULSE 93; RESP 16; O2SAT 96
== END 2023-10-21 13:45 | disposition home or self-care (01) ==
PROVIDERS: Emergency Provider Emergency Medicine; PCP Family Medicine
DX: R07.9 Chest pain, unspecified (principal); I13.0 Hypertensive heart and chronic kidney disease with heart failure and stage 1 through stage 4 chronic kidney disease, or unspecified chronic kidney disease; N18.2 Chronic kidney disease, stage 2 (mild); I50.9 Heart failure, unspecified; G30.9 Alzheimer's disease, unspecified; F02.80 Dementia in other diseases classified elsewhere, unspecified severity, without behavioral disturbance, psychotic disturbance, mood disturbance, and anxiety; I25.10 Atherosclerotic heart disease of native coronary artery without angina pectoris; E78.5 Hyperlipidemia, unspecified; Z95.5 Presence of coronary angioplasty implant and graft; Z11.52 Encounter for screening for COVID-19; Z79.01 Long term (current) use of anticoagulants
CPT/HCPCS: 36415; 71045; 80053; 81003; 84484; 85025; 87426; 87804; 93005; 96374; 99285; J2405; J7040

== ENCOUNTER 2023-11-09 09:00 | Outpatient (CLI) | payer MEDICARE, MEDICAID, SELFPAY ==
--- NOTE | 2023-11-09 09:05 | FL_ITS ---
WS: [id number] UT barium swallow [id number] REASON FOR EXAM: ESOPHGEAL DYSPHAGIA FLUOROSCOPY TIME: 1min [id number] # OF SPOT FILMS: Multiple FINDINGS: Patient was evaluated in the standing AP and lateral projections, prone JURADO, and supine pos itions. Swallowing of barium was monitored fluoroscopically and with multiple spot films obtained for documentation. 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 This abnormality was identifi ed on 12/21/2008. It appears to be significantly more prominent at this time The remainder of the cervical esophagus is unremarkable. The thoracic esophagus demonstrated intermittent loss of primary peristaltic wave with degradation in to tertiary contractions. Episodes of moderate barium retention and reflux to the midesophagus above the thoracic inlet. Large nonreducible hiatal hernia which was demonstrated on previous examination of 12/29/2011. This a bnormality is also somewhat larger. Mild dysmotility in the mid esophagus with intermittent loss of primary peristalsis and tertiary cont ractions. Retained barium does reflux toward the thoracic inlet. IMPRESSION: Cervical esophagus abnormality as above. Mild thoracic esophageal dysmotility. Large nonreducible hiatal hernia without significant reflux.
== END 2023-11-09 09:01 | disposition home or self-care (01) ==
LOC: RAD 09:00
PROVIDERS: PCP Family Medicine; Visit Provider Family Medicine
DX: R13.19 Other dysphagia (principal); K44.9 Diaphragmatic hernia without obstruction or gangrene; K22.4 Dyskinesia of esophagus
CPT/HCPCS: 74220

== ENCOUNTER → 2023-11-21 11:44 | Outpatient (BNVA) | payer MEDICARE, MEDICAID, SELFPAY | PROVIDERS: PCP Family Medicine; Visit Provider Internal Medicine Cardiovascular Disease | DX: Z95.2 Presence of prosthetic heart valve (principal); I48.20 Chronic atrial fibrillation, unspecified; Z79.01 Long term (current) use of anticoagulants; E78.2 Mixed hyperlipidemia; I25.10 Atherosclerotic heart disease of native coronary artery without angina pectoris; I13.0 Hypertensive heart and chronic kidney disease with heart failure and stage 1 through stage 4 chronic kidney disease, or unspecified chronic kidney disease; I50.9 Heart failure, unspecified; N18.2 Chronic kidney disease, stage 2 (mild) | CPT/HCPCS: 99214 ==

== ENCOUNTER → 2023-12-03 09:34 | Outpatient (BNVA) | payer MEDICARE, MEDICAID, SELFPAY | PROVIDERS: PCP Family Medicine; Visit Provider Podiatrist Foot & Ankle Surgery | DX: B35.1 Tinea unguium (principal); L85.3 Xerosis cutis; N18.2 Chronic kidney disease, stage 2 (mild); M72.2 Plantar fascial fibromatosis; E11.22 Type 2 diabetes mellitus with diabetic chronic kidney disease | CPT/HCPCS: 11721 ==

== ENCOUNTER 2024-02-06 13:41 | Outpatient (CLI) | payer MEDICARE, MEDICAID, SELFPAY ==
--- NOTE | 2024-02-06 13:47 | USCV_ITS ---
Odilia Ulloa Age: 73 Gender: F : 1950 Exam Date: 02/06/2024 14:40 Ordering Phys: Danny Marmolejo MD Technologist: CT [place] [facility] [place]: mitral v replacement BP: 122 / 80 HR: 78 Rhythm: Atrial fibrillation Technical Quality: Adequate MEASUREMENTS (Male / Female) Normal Values 2D ECHO LVOT Diameter 2.1 cm LV Ejection Fraction MOD 2C 56.6 % LV Ejection Fraction 2C AL 58.1 % LA Diameter 2.8 cm RA Systolic Volume 4C AL 117.9 ml RA Systolic Volume 4C MOD 114.4 ml LA Sys Volume AL 90.8 cm cubed Aorta at Sinotubular Diameter 2.4 cm M-MODE LA Ao Ratio MM 1.8 AV Cusp Separation MM 1.8 cm DOPPLER AV Peak Velocity 130.0 cm/s LVOT Peak Velocity 93.0 cm/s AV Area Cont Eq vti 2.2 cm squared AV Area Cont Eq pk 2.4 cm squared MV Peak Velocity 172.0 cm/s MV Area PHT 2.7 cm squared Mitral E to A Ratio 71.0 TV Peak Velocity 268.0 cm/s TR Peak Velocity 282.0 cm/s TR Peak Gradient 31.8 mmHg TV Peak E Velocity 115.0 cm/s Right Atrial Pressure 3.0 mmHg Pulmonary Artery Systolic Pressu 34.8 mmHg PV Peak Velocity 81.5 cm/s FINDINGS Left Ventricle Left ventricle is normal in size. LV systolic function is normal with EF of 50 to 55%. No regional wall motion abnormalities. Right Ventricle Normal in size and function Right Atrium Dilated. Left Atrium Dilated. Mitral Valve Prosthetic mitral valve. Mild mitral regurgitation. No significant stenosis. Aortic Valve Aortic valve is thickened. No significant stenosis. Tricuspid Valve Moderate to severe tricuspid regurgitation. RVSP is 35-40 mmHg. This is consistent with mild pulmonary hypertension Pulmonic Valve Not well visualized Pericardium Normal Aorta Normal in size IVC Appears to be normal CONCLUSIONS LV systolic function is normal with EF of 50-55% Biatrial dilation Prosthetic mitral valve. Mild mitral regurgitation Moderate to severe tricuspid regurgitation Mild pulmonary hypertension Compared to prior echocardiogram from 2018 no significant changes are seen Souleymane Wood MD (Electronically Signed) Final Date: 10 February 2024 09:57 S
== END 2024-02-06 13:42 | disposition home or self-care (01) ==
LOC: RAD 13:42
PROVIDERS: PCP Family Medicine; Visit Provider Family Medicine
DX: Z95.2 Presence of prosthetic heart valve (principal); I08.1 Rheumatic disorders of both mitral and tricuspid valves
CPT/HCPCS: 93306

== ENCOUNTER 2024-02-07 11:00 | Outpatient (CLI) | payer MEDICARE, MEDICAID, SELFPAY ==
--- NOTE | 2024-02-07 11:03 | FL_ITS ---
WS: [id number] Modified barium swallow, 02/07/2024 Clinical Data: Oral dysphagia Comparison: None. Fluoroscopy time: 1min [id number] # of spot films: 0 Findings: The patient showed extended oral preparation and there was premature spillage. There was minimal resi due which cleared with double swallows. There is no aspiration or penetration. The barium tablet pass ed normally from the oral pharynx through the hypopharynx through the esophagus and into the stomach. Impression: 1. Minimal extended oral preparation with premature spillage. 2. Negative for aspiration or penetration.
== END 2024-02-07 11:01 | disposition home or self-care (01) ==
LOC: RAD 11:00
PROVIDERS: PCP Family Medicine; Visit Provider Specialist
DX: R13.10 Dysphagia, unspecified (principal)
CPT/HCPCS: 74230; 92611

== ENCOUNTER → 2024-02-11 10:01 | Outpatient (BNVA) | payer MEDICARE, MEDICAID, SELFPAY | PROVIDERS: PCP Family Medicine; Visit Provider Podiatrist Foot & Ankle Surgery | DX: B35.1 Tinea unguium (principal); L85.3 Xerosis cutis; N18.2 Chronic kidney disease, stage 2 (mild); M72.2 Plantar fascial fibromatosis; E11.29 Type 2 diabetes mellitus with other diabetic kidney complication | CPT/HCPCS: 11721 ==

== ENCOUNTER 2024-04-11 04:36 | Emergency (ER) | payer MEDICARE, MEDICAID, SELFPAY ==
[2024-04-11] VITALS (8 sets, daily range): BP systolic 93–106; BP diastolic 44–85; PULSE 82–94; RESP 13–20; TEMP 36.9; O2SAT 92–98; BMI 31.1
--- NOTE | 2024-04-11 04:42 | W.ED.CHESTPA ---
Documented by User: Chuck Casas DO 04/11/24 04:53 HPI - Chest Pain General: Chief Complaint: Chest Pain Stated Complaint: Chest Pain Time Seen by Provider: 04/11/24 04:42 History of Present Illness: Patient presents to the ER by EMS with complaints of chest pain and shortness of breath. Patient said the chest pain was substernal woke her up from sleep and radiated to her back. She said she is also mildly short of breath at this moment. Patient denies any diaphoresis, nausea vomiting abdominal pain cough cold fevers chills. Patient for says she has no cardiac history however upon further questioning her and looking at the chart she sees Dr. Petit has diagnosis of mitral valve replaced ischemic cardiomyopathy chronic A-fib and has had at least 2 stents. Patient is on amiodarone Lasix losartan metoprolol spironolactone and possibly warfarin. Patient had an echo done on 02/06/2024 that showed EF of 50 to 55%, prosthetic mitral valve mild mitral regurg moderate to severe tricuspid regurg, mild pulmonary hypertension Review of Systems General: Reports: 10 or more systems reviewed and unremarkable except in HPI and below PFSH ED PFSH: Medical History Chronic anxiety History of iron deficiency anemia Alzheimer disease CKD (chronic kidney disease) stage 2, GFR 60-89 ml/min Hypertension CAD (coronary artery disease) CHF (congestive heart failure) Insomnia Hypothyroid Hyperlipidemia Chronic neck and back pain GERD (gastroesophageal reflux disease) Chronic atrial fibrillation Chronic constipation Surgical History History of heart artery stent Coronary angioplasty/stent placement in 2011 and in 2012 Hx of colonoscopy 2018 H/O esophagogastroduodenoscopy 2011, 2016, and 2018 S/P cholecystectomy H/O section Mitral valve replaced valve replacement 1994 Family History Other CAD (coronary artery disease) Diabetes Social History Smoking and tobacco/nicotine status: never used tobacco/nicotine Alcohol intake: never Substance/Drug Use: never Housing: Assisted Living Facility Marital status: Single Number of children: 1 Current occupational status: disabled Current gender identity: Female Female Reproductive History: Para: 1 Physical Exam Const: COMMON NORMALS: no acute distress, average body habitus, patient oriented x3, no limitations, healthy appearing, alert and well nourished HENMT: COMMON NORMALS: normocephalic, atraumatic, hearing grossly normal bilaterally, external ears normal, Normal external nose present and moist oral mucous membranes HEAD & SCALP: normocephalic and atraumatic NOSE: Normal external nose present EXTERNAL EAR: Yes external ears normal Neck/C-Spine: COMMON NORMALS: no JVD Chest: COMMONS NORMALS: normal inspection of the chest; negative for normal palpation of entire chest wall (Pain reproducible with palpation sternal chest region) Resp: COMMON NORMALS: normal respiratory effort, No retractions, No use of accessory muscles and clear to auscultation bilaterally AUSCULTATION: clear to auscultation bilaterally Cardio: COMMON NORMALS: no JVD, regular rate, S1 normal heart sound present, S2 normal heart sound present, No gallops present (Cardio) and No clicks present (Cardio); negative for regular rhythm (Irregularly irregular) and negative for No murmurs present (Cardio) (Systolic ejection murmur) RATE: regular rate RHYTHM: abnormal rhythm (Irregularly irregular) HEART SOUNDS: S1 normal heart sound present and S2 normal heart sound present GI: COMMON NORMALS: Normal to inspection, nondistended, normoactive bowel sounds present, Soft to palpation, non-tender, No hepatosplenomegaly present and no masses PALPATION: Yes Soft to palpation and Yes No hepatosplenomegaly present Neuro: COMMON NORMALS: patient oriented x3 SENSORIUM/ORIENTATION: Yes alert Course Vital Signs: Vital signs: Vital Signs Temperature 98.4 F 04/11/24 08:53 Pulse Rate 94 04/11/24 08:53 Respiratory Rate 16 04/11/24 08:53 Blood Pressure 106/64 04/11/24 08:53 Pulse Oximetry 98 04/11/24 08:53 Oxygen Delivery Me thod Room Air 04/11/24 04:37 MDM - Chest Pain Differential Diagnosis Unlikely acute massive pulmonary embolism, acute respiratory failure, acute myocardial infarction, cardiac arrest or sudden cardiac Medical Records I reviewed the patient's medical records. Lab Data I reviewed the patient's lab results. 04/11/24 04:45 04/11/24 04:45 Radiology Impressions Chest X-Ray 04/11/24 04:46 IMPRESSION: 1. Hypoventilatory changes with basilar and left lateral atelectasis. 2. Additional findings as above. Laboratory Results WBC 7.52 10^3/uL (3.29-11.43) 04/11/24 04:45 RBC 3.52 10^6/uL (3.85-5.65) L 04/11/24 04:45 Hgb 11.80 g/dL (11.27-16.99) 04/11/24 04:45 Hct 36.1 % (36-47) 04/11/24 04:45 MCV 102.6 fl (85-98) H 04/11/24 04:45 MCH 33.5 pg (27-33) H 04/11/24 04:45 MCHC 32.7 g/dL (30-55) 04/11/24 04:45 RDW 13.0 % (12.1-15.1) 04/11/24 04:45 Plt Count 244 10^3/cmm (157-399) 04/11/24 04:45 MPV 9.6 fL (7.4-10.4) 04/11/24 04:45 Neut % (Auto) 49.7 % 04/11/24 04:45 Lymph % (Auto) 31.4 % 04/11/24 04:45 [place] % (Auto) 11.3 % 04/11/24 04:45 Eos % (Auto) 6.1 % 04/11/24 04:45 Baso % (Auto) 1.1 % 04/11/24 04:45 Neut # (Auto) 3.74 10^3/uL (1.8-7.7) 04/11/24 04:45 Lymph # (Auto) 2.4 10^3/uL (0.8-4.8) 04/11/24 04:45 [place] # (Auto) 0.9 10^3/uL (0.2-0.9) 04/11/24 04:45 Eos # (Auto) 0.5 10^3/uL (0.0-0.8) 04/11/24 04:45 Baso # (Auto) 0.1 10^3/uL (0.0-0.1) 04/11/24 04:45 Nucleated RBC % (auto) 0 % 04/11/24 04:45 Nucleated RBCs # 0.0 /100WBC 04/11/24 04:45 PT 21.10 SECONDS (12.1-14.9) H 04/11/24 04:45 INR 1.75 (0.8-1.2) H 04/11/24 04:45 Sodium 138 mmol/L (136-145) 04/11/24 04:45 Potassium 4.4 mmol/L (3.5-5.1) 04/11/24 04:45 Chloride 104 mmol/L (98-107) 04/11/24 04:45 Carbon Dioxide 24 mmol/L (22-29) 04/11/24 04:45 Anion Gap 14.4 (5-19) 04/11/24 04:45 BUN 17 mg/dL (8-23) 04/11/24 04:45 Creatinine 0.8 mg/dL (0.5-0.9) 04/11/24 04:45 GFR Calculation Not Reportable 04/11/24 04:45 Glucose 91 mg/dL (65-115) 04/11/24 04:45 Calculated Osmolality 287 mOsm/kg (285-295) 04/11/24 04:45 Calcium 9.7 mg/dL (8.5-10.5) 04/11/24 04:45 Total Bilirubin 0.8 mg/dL (0.15-1.2) 04/11/24 04:45 AST 28 U/L (0-32) 04/11/24 04:45 ALT 17 U/L (0-33) 04/11/24 04:45 Alkaline Phosphatase 151 U/L (35-105) H 04/11/24 04:45 Troponin T Baseline 13 ng/L (0-10) H 04/11/24 04:45 Troponin T 120 Minute 12.73 ng/L (0-10) H 04/11/24 06:28 Delta Troponin T -0.27 ABS# (0-10) L 04/11/24 06:28 NT-Pro-B Natriuret Pep 1419 pg/mL (0-125) H 04/11/24 04:45 Total Protein 7.2 g/dL (6.6-8.7) 04/11/24 04:45 Albumin 4.1 g/dL (3.5-5.2) 04/11/24 04:45 Globulin 3.1 g/dL (1.3-4.6) 04/11/24 04:45 All radiology interpretation(s) finalized by discharge EKG Data EKG 1: I personally reviewed and interpreted this EKG as follows: EKG interpretation date: 04/11/24 EKG interpretation time: 04:41 Interpretation: Ventricular rate 93 bpm, QRS duration 125, QTc of 442, atrial fibrillation, Discharge Plan Discharge Patient Disposition: Home Clinical Impression: Atypical chest pain, Hiatal hernia, Blepharitis Prescriptions: New cephalexin 500 mg capsule 500 mg PO TID 7 Days Qty: 21 0RF gentamicin 0.3 % drops 2 drp ophthalmic (eye) QID 7 Days Qty: 5 0RF No Action nitroglycerin [Nitrostat] 0.4 mg tablet, sublingual 0.4 mg SUBLINGUAL Q5M PRN (Reason: chest pains) bismuth subsalicylate 525 mg/15 mL suspension 525 mg PO Q30M PRN (Reason: Acid Reflux) Rx Instructions: do not exceed 8 doses in a 24 hour period acetaminophen 325 mg capsule 650 mg PO Q6H PRN (Reason: Pain) meclizine 12.5 mg tablet 12.5 mg PO Q6H PRN (Reason: Dizziness Or Vertigo) potassium chloride 20 mEq tablet extended release 20 meq PO BID@0700,1900 hydroxyzine HCl 25 mg tablet 25 mg PO TID PRN (Reason: Anxiety) folic acid 1 mg tablet 1 mg PO DAILY furosemide 40 mg tablet 60 mg PO DAILY@0700 Qty: 135 0RF memantine 10 mg tablet See Rx Instructions .ROUTE .COMPLEX Qty: 180 3RF Dose Instruction: TAKE ONE TABLET BY MOUTH TWICE DAILY Rx Instructions: TAKE ONE TABLET BY MOUTH TWICE DAILY metoprolol tartrate 50 mg tablet See Rx Instructions .ROUTE .COMPLEX Qty: 180 3RF Dose Instruction: TAKE ONE TABLET BY MOUTH TWICE DAILY. (7 am, 8 pm) Rx Instructions: TAKE ONE TABLET BY MOUTH TWICE DAILY. (7 am, 8 pm) galantamine 8 mg capsule,ext rel. pellets 24 hr See Rx Instructions .ROUTE .COMPLEX Qty: 30 2RF Dose Instruction: TAKE ONE CAPSULE BY MOUTH EVERY DAY WITH BREAKFAST ONLY FOR ALZHEIMERS Rx Instructions: TAKE ONE CAPSULE BY MOUTH EVERY DAY WITH BREAKFAST ONLY FOR ALZHEIMERS spironolactone 25 mg tablet 25 mg PO DAILY Qty: 90 3RF atorvastatin 80 mg tablet 80 mg PO DAILY Qty: 90 3RF losartan 25 mg tablet 25 mg PO DAILY Qty: 90 3RF tramadol 50 mg Tablet 50 mg PO Q6H PRN (Reason: Pain) warfarin 2 mg Tablet See Rx Instructions .ROUTE .COMPLEX Rx Instructions: 2 mg ON MON-SUN-SUN venlafaxine 150 mg capsule,extended release 24hr 150 mg PO DAILY@0700 levothyroxine [Euthyrox] 75 mcg tablet 75 mcg PO DAILY@0700 pantoprazole 40 mg tablet,delayed release (DR/EC) 40 mg PO DAILY@0700 warfarin 3 mg tablet See Rx Instructions .ROUTE .COMPLEX Rx Instructions: 3 mg ON [id number]-BYL-SUN Natural Fiber Powder 1 tbsp PO DAILY vitamin O23-aohyq acid 0.5-1 mg Tablet 2 tab PO DAILY amiodarone 200 mg tablet 200 mg PO DAILY Discharge Orders: Discharge ED (Routine); Ordered 04/11/24 Ordered By: Josse Ferrer Referrals: Danny Marmolejo MD [Primary Care Provider] - Discharge Diet: Usual diet Discharge Activity: Resume usual activity Patient Instructions: Opioid Safety, Pain Management Activity Restrictions/Additional Instructions: Thank you for choosing [facility] for your healthcare needs today. It is very important that you follow up as instructed or that you return to the Emergency Department should you have concerns or if your condition changes or worsens in any way. You were seen today with complaints of chest discomfort. Your cardiac enzymes and EKG did not show any acute changes. Review of the previous stress test you had done in July 2023 was normal. Recommend you contact Dr. Marmolejo clinic today regarding your INR level which is slightly subtherapeutic. They will make appropriate adjustments. Sign Out Sign Out Data: Patient Sign Out occurred on 04/11/24 at 06:25. Patient's care was discussed, and care was transferred from Chuck Casas DO to Josse Ferrer DO. Coding Level of Care Code ED Casino Slot Supervisor for Chg Fwd Documented by User: Josse Ferrer DO 04/11/24 11:19 HPI - Chest Pain General: Chief Complaint: Chest Pain Stated Complaint: Chest Pain Time Seen by Provider: 04/11/24 04:42 PFSH ED PFSH: Medical History Chronic anxiety History of iron deficiency anemia Alzheimer disease CKD (chronic kidney disease) stage 2, GFR 60-89 ml/min Hypertension CAD (coronary artery disease) CHF (congestive heart failure) Insomnia Hypothyroid Hyperlipidemia Chronic neck and back pain GERD (gastroesophageal reflux disease) Chronic atrial fibrillation Chronic constipation Surgical History History of heart artery stent Coronary angioplasty/stent placement in 2011 and in 2012 Hx of colonoscopy 2017 H/O esophagogastroduodenoscopy 2011, 2016, and 2017 S/P cholecystectomy H/O section Mitral valve replaced valve replacement 1994 Family History Other CAD (coronary artery disease) Diabetes Social History Smoking and tobacco/nicotine status: never used tobacco/nicotine Alcohol intake: never Substance/Drug Use: never Housing: Assisted Living Facility Marital status: Single Number of children: 1 Current occupational status: disabled Current gender identity: Female Course Vital Signs: Vital signs: Vital Signs Temperature 98.4 F 04/11/24 08:53 Pulse Rate 94 04/11/24 08:53 Respiratory Rate 16 04/11/24 08:53 Blood Pressure 106/64 04/11/24 08:53 Pulse Oximetry 98 04/11/24 08:53 Oxygen Delivery Me thod Room Air 04/11/24 04:37 MDM - Chest Pain Medical Decision Making Care assumed at change of shift serial cardiac enzymes are negative EKG does not show any acute changes. Patient had a cardiac stress test in July 2023. Will discharge patient home. We did note that her INR is 1.75 I reviewed her chart she does have chronic atrial fibrillation but she has a [employer] mechanical valve according to her old records it was identified specifically in her previous hospital admission. Patient was unsure of the type of valve she had. She is under anticoagulated for this. She lives in a senior living not sure how well she will be able to adapt medication changes. She does not have anybody with her here today. We did give her a bridging dose of Lovenox before she left I contacted her primary care doctor Dr. Marmolejo and he will follow-up on adjustments for Coumadin to get her to a therapeutic level. Follow-up with cardiology if she has persistent chest discomfort no chest discomfort present at the time she is discharged. Incidentally noted she had some redness and irritation of the eyes treated for blepharitis with his cephalexin and gentamicin eyedrops. Lab Data 04/11/24 04:45 04/11/24 04:45 Radiology Impressions Chest X-Ray 04/11/24 04:46 IMPRESSION: 1. Hypoventilatory changes with basilar and left lateral atelectasis. 2. Additional findings as above. Laboratory Results WBC 7.52 10^3/uL (3.29-11.43) 04/11/24 04:45 RBC 3.52 10^6/uL (3.85-5.65) L 04/11/24 04:45 Hgb 11.80 g/dL (11.27-16.99) 04/11/24 04:45 Hct 36.1 % (36-47) 04/11/24 04:45 MCV 102.6 fl (85-98) H 04/11/24 04:45 MCH 33.5 pg (27-33) H 04/11/24 04:45 MCHC 32.7 g/dL (30-55) 04/11/24 04:45 RDW 13.0 % (12.1-15.1) 04/11/24 04:45 Plt Count 244 10^3/cmm (157-399) 04/11/24 04:45 MPV 9.6 fL (7.4-10.4) 04/11/24 04:45 Neut % (Auto) 49.7 % 04/11/24 04:45 Lymph % (Auto) 31.4 % 04/11/24 04:45 [place] % (Auto) 11.3 % 04/11/24 04:45 Eos % (Auto) 6.1 % 04/11/24 04:45 Baso % (Auto) 1.1 % 04/11/24 04:45 Neut # (Auto) 3.74 10^3/uL (1.8-7.7) 04/11/24 04:45 Lymph # (Auto) 2.4 10^3/uL (0.8-4.8) 04/11/24 04:45 [place] # (Auto) 0.9 10^3/uL (0.2-0.9) 04/11/24 04:45 Eos # (Auto) 0.5 10^3/uL (0.0-0.8) 04/11/24 04:45 Baso # (Auto) 0.1 10^3/uL (0.0-0.1) 04/11/24 04:45 Nucleated RBC % (auto) 0 % 04/11/24 04:45 Nucleated RBCs # 0.0 /100WBC 04/11/24 04:45 PT 21.10 SECONDS (12.1-14.9) H 04/11/24 04:45 INR 1.75 (0.8-1.2) H 04/11/24 04:45 Sodium 138 mmol/L (136-145) 04/11/24 04:45 Potassium 4.4 mmol/L (3.5-5.1) 04/11/24 04:45 Chloride 104 mmol/L (98-107) 04/11/24 04:45 Carbon Dioxide 24 mmol/L (22-29) 04/11/24 04:45 Anion Gap 14.4 (5-19) 04/11/24 04:45 BUN 17 mg/dL (8-23) 04/11/24 04:45 Creatinine 0.8 mg/dL (0.5-0.9) 04/11/24 04:45 GFR Calculation Not Reportable 04/11/24 04:45 Glucose 91 mg/dL (65-115) 04/11/24 04:45 Calculated Osmolality 287 mOsm/kg (285-295) 04/11/24 04:45 Calcium 9.7 mg/dL (8.5-10.5) 04/11/24 04:45 Total Bilirubin 0.8 mg/dL (0.15-1.2) 04/11/24 04:45 AST 28 U/L (0-32) 04/11/24 04:45 ALT 17 U/L (0-33) 04/11/24 04:45 Alkaline Phosphatase 151 U/L (35-105) H 04/11/24 04:45 Troponin T Baseline 13 ng/L (0-10) H 04/11/24 04:45 Troponin T 120 Minute 12.73 ng/L (0-10) H 04/11/24 06:28 Delta Troponin T -0.27 ABS# (0-10) L 04/11/24 06:28 NT-Pro-B Natriuret Pep 1419 pg/mL (0-125) H 04/11/24 04:45 Total Protein 7.2 g/dL (6.6-8.7) 04/11/24 04:45 Albumin 4.1 g/dL (3.5-5.2) 04/11/24 04:45 Globulin 3.1 g/dL (1.3-4.6) 04/11/24 04:45 Discharge Plan Discharge Patient Disposition: Home Clinical Impression: Atypical chest pain, Hiatal hernia, Blepharitis Prescriptions: New cephalexin 500 mg capsule 500 mg PO TID 7 Days Qty: 21 0RF gentamicin 0.3 % drops 2 drp ophthalmic (eye) QID 7 Days Qty: 5 0RF No Action nitroglycerin [Nitrostat] 0.4 mg tablet, sublingual 0.4 mg SUBLINGUAL Q5M PRN (Reason: chest pains) bismuth subsalicylate 525 mg/15 mL suspension 525 mg PO Q30M PRN (Reason: Acid Reflux) Rx Instructions: do not exceed 8 doses in a 24 hour period acetaminophen 325 mg capsule 650 mg PO Q6H PRN (Reason: Pain) meclizine 12.5 mg tablet 12.5 mg PO Q6H PRN (Reason: Dizziness Or Vertigo) potassium chloride 20 mEq tablet extended release 20 meq PO BID@0700,1900 hydroxyzine HCl 25 mg tablet 25 mg PO TID PRN (Reason: Anxiety) folic acid 1 mg tablet 1 mg PO DAILY furosemide 40 mg tablet 60 mg PO DAILY@0700 Qty: 135 0RF memantine 10 mg tablet See Rx Instructions .ROUTE .COMPLEX Qty: 180 3RF Dose Instruction: TAKE ONE TABLET BY MOUTH TWICE DAILY Rx Instructions: TAKE ONE TABLET BY MOUTH TWICE DAILY metoprolol tartrate 50 mg tablet See Rx Instructions .ROUTE .COMPLEX Qty: 180 3RF Dose Instruction: TAKE ONE TABLET BY MOUTH TWICE DAILY. (7 am, 8 pm) Rx Instructions: TAKE ONE TABLET BY MOUTH TWICE DAILY. (7 am, 8 pm) galantamine 8 mg capsule,ext rel. pellets 24 hr See Rx Instructions .ROUTE .COMPLEX Qty: 30 2RF Dose Instruction: TAKE ONE CAPSULE BY MOUTH EVERY DAY WITH BREAKFAST ONLY FOR ALZHEIMERS Rx Instructions: TAKE ONE CAPSULE BY MOUTH EVERY DAY WITH BREAKFAST ONLY FOR ALZHEIMERS spironolactone 25 mg tablet 25 mg PO DAILY Qty: 90 3RF atorvastatin 80 mg tablet 80 mg PO DAILY Qty: 90 3RF losartan 25 mg tablet 25 mg PO DAILY Qty: 90 3RF tramadol 50 mg Tablet 50 mg PO Q6H PRN (Reason: Pain) warfarin 2 mg Tablet See Rx Instructions .ROUTE .COMPLEX Rx Instructions: 2 mg ON MON-SUN-SUN venlafaxine 150 mg capsule,extended release 24hr 150 mg PO DAILY@0700 levothyroxine [Euthyrox] 75 mcg tablet 75 mcg PO DAILY@0700 pantoprazole 40 mg tablet,delayed release (DR/EC) 40 mg PO DAILY@0700 warfarin 3 mg tablet See Rx Instructions .ROUTE .COMPLEX Rx Instructions: 3 mg ON [id number]-[id number]-REG-SUN Natural Fiber Powder 1 tbsp PO DAILY vitamin W69-bdtvo acid 0.5-1 mg Tablet 2 tab PO DAILY amiodarone 200 mg tablet 200 mg PO DAILY Discharge Orders: Discharge ED (Routine); Ordered 04/11/24 Ordered By: Josse Ferrer Referrals: Danny Marmolejo MD [Primary Care Provider] - Discharge Diet: Usual diet Discharge Activity: Resume usual activity Patient Instructions: Opioid Safety, Pain Management Activity Restrictions/Additional Instructions: Thank you for choosing [facility] for your healthcare needs today. It is very important that you follow up as instructed or that you return to the Emergency Department should you have concerns or if your condition changes or worsens in any way. You were seen today with complaints of chest discomfort. Your cardiac enzymes and EKG did not show any acute changes. Review of the previous stress test you had done in July 2023 was normal. Recommend you contact Dr. Marmolejo clinic today regarding your INR level which is slightly subtherapeutic. They will make appropriate adjustments. Sign Out Sign Out Data: Patient Sign Out occurred on 04/11/24 at 06:25. Patient's care was discussed, and care was transferred from Chuck Casas DO to Josse Ferrer DO. Coding Level of Care Code ED Casino Slot Supervisor for Indra Carmona
--- NOTE | 2024-04-11 04:46 | XRR_ITS ---
PROCEDURE INFORMATION: Exam: XR Chest Exam date and time: 04/11/2024 4:55 AM Age: 73 years old Clinical indication: Angina; Prior surgery; Surgery date: 6+ months; Surgery type: Stent, mitral valve; Additional info: Chest pain TECHNIQUE: Imaging protocol: Radiologic exam of the chest. Views: 1 view. COMPARISON: CR XR chest 1V portable [id number] 10/21/2023 10:52 AM FINDINGS: Lungs: Hypoventilatory changes bilaterally. Left lateral lung space platelike opacities suggesting atelectasis. Bibasilar atelectasis. Pleural spaces: Unremarkable. No pleural effusion. No pneumothorax. Heart/Mediastinum: Unremarkable. No cardiomegaly. Vasculature: Atherosclerotic disease of the aortic arch. Bones/joints: Status post sternotomy. Diffuse degenerative change of the visualized osseous structures. Soft tissues: Nonspecific lucencies over the right lateral chest wall, likely skin folds. Other findings: Patient is rotated limiting definitive characterization. XR/XR chest 1V portable [id number] IMPRESSION: 1. Hypoventilatory changes with basilar and left lateral atelectasis. 2. Additional findings as above.
--- NOTE | 2024-04-11 04:47 | ECG_ITS ---
[facility] Test Date: 2024-04-11 Pat Name: Odilia Ulloa Department: Room: Gender: Female Yard Assistant: : 1950 Requested By: Chuck Casas Order Number: [id number] Supriya MD: Katrin Petit M.D. Measurements Intervals [place] Rate: 93 P: 0 [place]: 0 QRS: 28 QRSD: 125 T: -13 QT: 391 QTc: 488 Interpretive Statements ATRIAL FIBRILLATION MODERATE INTRAVENTRICULAR CONDUCTION DELAY [110+ ms QRS DURATION] MINIMAL ST DEPRESSION [0.025+ mV ST DEPRESSION] ABNORMAL RHYTHM ECG Compared to ECG 10/21/2023 12:13:10 Ventricular premature complex(es) no longer present Aberrant conduction of supraventricular beat(s) no longer present ST (T wave) deviation still present Electronically Signed On 04-11-2024 19:04:43 CDT by Katrin Petit M.D. [id number]
[2024-04-11 04:52] LABS: Basophils # 0.1 10^3/uL (0.0-0.1); Basophils % 1.1 %; Eosinophils # 0.5 10^3/uL (0.0-0.8); Eosinophils % 6.1 %; Hematocrit 36.1 % (36-47); Lymphocytes # 2.4 10^3/uL (0.8-4.8); Lymphocytes % 31.4 %; Mean Corpuscular HGB Conc 32.7 g/dL (30-55); Mean Corpuscular Hemoglobin 33.5 pg (27-33); Mean Corpuscular Volume 102.6 fl (85-98); Mean Platelet Volume 9.6 fL (7.4-10.4); Monocytes # 0.9 10^3/uL (0.2-0.9); Monocytes % 11.3 %; Neutrophils # 3.74 10^3/uL (1.8-7.7); Neutrophils % 49.7 %; Nucleated Red Blood Cells % 0 %; Platelet Count 244 10^3/cmm (157-399); Red Blood Count 3.52 10^6/uL (3.85-5.65); White Blood Count 7.52 10^3/uL (3.29-11.43)
[2024-04-11 05:01] LABS: INR 1.75 (0.8-1.2)
[2024-04-11 05:06] LABS: Troponin(5th) Baseline 13 ng/L (0-10)
[2024-04-11 05:07] LABS: Alanine Aminotransferase 17 U/L (0-33); Albumin Level 4.1 g/dL (3.5-5.2); Alkaline Phosphatase 151 U/L (35-105); Anion Gap 14.4 (5-19); Aspartate Amino Transferase 28 U/L (0-32); Blood Urea Nitrogen 17 mg/dL (8-23); Calcium 9.7 mg/dL (8.5-10.5); Carbon Dioxide 24 mmol/L (22-29); Chloride 104 mmol/L (98-107); Creatinine Clr Calc Pharmacy 59.3183; Globulin 3.1 g/dL (1.3-4.6); Glucose 91 mg/dL (65-115); Osmolality Calculated 287 mOsm/kg (285-295); Potassium 4.4 mmol/L (3.5-5.1); Sodium 138 mmol/L (136-145); Total Bilirubin 0.8 mg/dL (0.15-1.2); Total Protein 7.2 g/dL (6.6-8.7)
[2024-04-11 05:38] LABS: NT Pro B Type Natriuretic Pept 1419 pg/mL (0-125)
--- NOTE | 2024-04-11 06:11 | PC.NURSE ---
PT PLACED ON 2L NC SUPPLEMENTAL O2 DUE TO DECREASED SPO2 WHILE ASLEEP.
--- NOTE | 2024-04-11 06:33 | ECG_ITS ---
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 Measurements Intervals [place] Rate: 92 P: 0 [place]: 0 QRS: 31 QRSD: 126 T: 0 QT: 391 QTc: 484 Interpretive Statements ATRIAL FIBRILLATION MODERATE INTRAVENTRICULAR CONDUCTION DELAY [110+ ms QRS DURATION] ABNORMAL RHYTHM ECG Compared to ECG 04/11/2024 04:41:17 ST (T wave) deviation no longer present Electronically Signed On 04-11-2024 19:15:33 CDT by Katrin Petit M.D. [email or web address] [id number]
[2024-04-11 07:06] LABS: Troponin 5 2HR 12.73 ng/L (0-10); Troponin 5 2HR Delta -0.27 ABS# (0-10)
--- NOTE | 2024-04-11 07:47 | PC.PHAR ---
PT IS FROM [facility] [phone][facility] 7:48[facility]
[2024-04-11] MEDS: enoxaparin 80 mg/0.8 mL Syringe SUBCUT (08:25)
== END 2024-04-11 08:26 | disposition home or self-care (01) ==
PROVIDERS: Emergency Medicine; Emergency Provider Family Medicine; PCP Family Medicine
DX: R07.89 Other chest pain (principal); K44.9 Diaphragmatic hernia without obstruction or gangrene; H01.009 Unspecified blepharitis unspecified eye, unspecified eyelid; I48.91 Unspecified atrial fibrillation; Z79.01 Long term (current) use of anticoagulants; G30.9 Alzheimer's disease, unspecified; F02.80 Dementia in other diseases classified elsewhere, unspecified severity, without behavioral disturbance, psychotic disturbance, mood disturbance, and anxiety; I13.0 Hypertensive heart and chronic kidney disease with heart failure and stage 1 through stage 4 chronic kidney disease, or unspecified chronic kidney disease; N18.2 Chronic kidney disease, stage 2 (mild); I50.9 Heart failure, unspecified; I25.10 Atherosclerotic heart disease of native coronary artery without angina pectoris; E78.5 Hyperlipidemia, unspecified; Z95.5 Presence of coronary angioplasty implant and graft
CPT/HCPCS: 71045; 80053; 83880; 84484; 85025; 85610; 93005; 96372; 99285; J1650

== ENCOUNTER → 2024-04-21 11:30 | Outpatient (BNVA) | payer MEDICARE, MEDICAID, SELFPAY | PROVIDERS: PCP Family Medicine; Visit Provider Podiatrist Foot & Ankle Surgery | DX: B35.1 Tinea unguium (principal); M79.671 Pain in right foot; M79.672 Pain in left foot; L85.3 Xerosis cutis; N18.2 Chronic kidney disease, stage 2 (mild); M72.2 Plantar fascial fibromatosis; E11.29 Type 2 diabetes mellitus with other diabetic kidney complication | CPT/HCPCS: 11721 ==

== ENCOUNTER → 2024-05-06 12:00 | Outpatient (BNVA) | payer MEDICARE, MEDICAID, SELFPAY | PROVIDERS: PCP Family Medicine; Visit Provider Specialist | DX: G30.9 Alzheimer's disease, unspecified (principal); F02.80 Dementia in other diseases classified elsewhere, unspecified severity, without behavioral disturbance, psychotic disturbance, mood disturbance, and anxiety | CPT/HCPCS: 99213 ==

== ENCOUNTER → 2024-05-21 11:45 | Outpatient (BNVA) | payer MEDICARE, MEDICAID, SELFPAY | PROVIDERS: PCP Family Medicine; Visit Provider Internal Medicine Cardiovascular Disease | DX: I48.20 Chronic atrial fibrillation, unspecified (principal); I25.10 Atherosclerotic heart disease of native coronary artery without angina pectoris; Z95.2 Presence of prosthetic heart valve; E78.2 Mixed hyperlipidemia; I25.5 Ischemic cardiomyopathy; I42.0 Dilated cardiomyopathy; I36.1 Nonrheumatic tricuspid (valve) insufficiency; I13.0 Hypertensive heart and chronic kidney disease with heart failure and stage 1 through stage 4 chronic kidney disease, or unspecified chronic kidney disease; N18.9 Chronic kidney disease, unspecified; I50.9 Heart failure, unspecified | CPT/HCPCS: 99214 ==

== ENCOUNTER 2024-08-15 12:07 | Outpatient (CLI) | payer MEDICARE, MEDICAID, SELFPAY ==
--- NOTE | 2024-08-15 12:10 | MM_ITS ---
WS: [id number] Bilateral screening 3D tomosynthesis digital mammogram, 08/15/2024 12:10 PM Clinical Data: SCREENING Comparison: 03/29/2023, 03/08/2022, 6 02/14/2021, 12/08/2011. Findings: No spiculated masses or clustered calcifications are seen. There are no secondary signs of carcinoma . There are calcifications in the [place] of small vessels. MM/MM scr BI tomosynthesis [id number] Impression: Negative bilateral mammogram unchanged. Recommend annual screening mammograms. BIRADS: 1 - Negative. FOLLOW UP: 1 Year Follow-up DENSITY: There are scattered areas of fibroglandular density. The CAD unloading checker was used
== END 2024-08-15 12:08 | disposition home or self-care (01) ==
LOC: RAD 12:08
PROVIDERS: PCP Family Medicine; Visit Provider Family Medicine
DX: Z12.31 Encounter for screening mammogram for malignant neoplasm of breast (principal); R92.1 Mammographic calcification found on diagnostic imaging of breast
CPT/HCPCS: 77063; 77067

== ENCOUNTER → 2024-12-05 09:42 | Outpatient (BNVA) | payer MEDICARE, MEDICAID, SELFPAY | PROVIDERS: PCP Family Medicine; Visit Provider Nurse Practitioner Family | DX: I48.20 Chronic atrial fibrillation, unspecified (principal); I25.10 Atherosclerotic heart disease of native coronary artery without angina pectoris; E78.2 Mixed hyperlipidemia; Z95.2 Presence of prosthetic heart valve; I13.0 Hypertensive heart and chronic kidney disease with heart failure and stage 1 through stage 4 chronic kidney disease, or unspecified chronic kidney disease; N18.2 Chronic kidney disease, stage 2 (mild); I50.9 Heart failure, unspecified; Z79.01 Long term (current) use of anticoagulants | CPT/HCPCS: 99214 ==

== ENCOUNTER 2025-01-31 07:36 | Emergency (ER) | payer MEDICARE, MEDICAID, SELFPAY ==
[2025-01-31] VITALS (8 sets, daily range): BP systolic 93–113; BP diastolic 53–66; PULSE 66–83; RESP 16–20; TEMP 36.7; O2SAT 92–98; BMI 28.1
--- NOTE | 2025-01-31 07:44 | ECG_ITS ---
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 Measurements Intervals [place] Rate: 80 P: 0 [place]: 0 QRS: 33 QRSD: 113 T: 23 QT: 390 QTc: 450 Interpretive Statements ATRIAL FIBRILLATION MODERATE INTRAVENTRICULAR CONDUCTION DELAY [110+ ms QRS DURATION] Compared to ECG 04/11/2024 06:33:56 No significant changes Electronically Signed On 01-31-2025 18:12:45 CDT by Souleymane Wood M.D. [email or web address] [id number]
--- NOTE | 2025-01-31 07:46 | W.ED.CHESTPA ---
HPI - Chest Pain General: Chief Complaint: Chest Pain Stated Complaint: chest pain Time Seen by Provider: 01/31/25 07:42 History of Present Illness: This patient is a 74-year-old presenting with chest pressure and burning that started around 530 or 6 this morning. She says it was present upon awakening. She denies ever having symptoms like this before although it is noteworthy that she has a history of Alzheimer's dementia. She does tell me that she has had a mitral valve surgery about 15 years ago. She is on warfarin. She reports that she has had some epigastric discomfort for about 3 months. She is not able to tell me much more about the symptoms in terms of exacerbating or relieving factors. It is not clear if these are the same types of symptoms that she is having today or not. She does feel short of breath today as well although she does not appear dyspneic. She denies sweating. She denies leg swelling. She denies any prior stenting or heart attacks. Her medication list would imply a history of A-fib and CHF. EMS gave her 4 baby aspirin and a nitro. She also had a nitro at the [facility]. She is complaining of a headache since then. It is also not clear whether the nitro helped her chest pain. Related Data Home Medications ?Medication ?Instructions ?Recorded ?Confirmed nitroglycerin 0.4 mg sublingual 0.4 mg sublingual Q5M PRN chest 11/07/19 01/31/25 tablet (Nitrostat) pains levothyroxine 75 mcg tablet 75 mcg PO DAILY@0700 hypothyroidism 11/11/20 01/31/25 (Euthyrox) tramadol 50 mg tablet 50 mg PO Q6H PRN Pain 11/11/20 01/31/25 potassium chloride 20 mEq 20 meq PO BID@0700,1900 12/22/20 01/31/25 tablet,extended release meclizine 12.5 mg tablet 12.5 mg PO Q6H PRN nausea and 04/19/21 01/31/25 vomiting bismuth subsalicylate 525 mg/15 mL 525 mg PO Q8H PRN Stomach Upset 08/15/21 01/31/25 oral suspension (Pepto-Bismol Max St) psyllium seed (sugar) oral powder 1 tbsp PO DAILY 10/21/23 01/31/25 mirtazapine 15 mg tablet 15 mg PO DAILY 05/21/24 01/31/25 acetaminophen 325 mg capsule 500 mg PO Q8H Pain 12/05/24 01/31/25 pantoprazole 40 mg tablet,delayed 40 mg PO DAILY 12/05/24 01/31/25 release amiodarone 200 mg tablet 200 mg PO PRN PRN if blood 01/31/25 01/31/25 pressure is over 120 cetirizine 10 mg tablet (Zyrtec) 10 mg PO DAILY 01/31/25 01/31/25 hydroxyzine HCl 25 mg tablet 25 mg PO TID PRN Anxiety 01/31/25 01/31/25 ipratropium bromide 42 mcg (0.06 2 spray intranasal TID 01/31/25 01/31/25 %) nasal spray magnesium hydroxide 400 mg/5 mL 30 ml PO PRN PRN bowel movemaent 01/31/25 01/31/25 oral suspension (Milk of Magnesia) mecobalamin (vitamin B12) 1,000 1,000 mcg PO DAILY 01/31/25 01/31/25 mcg chewable tablet (B12 Active) polyethylene glycol 3350 17 4 g PO DAILY PRN Constipation 01/31/25 01/31/25 gram/dose oral powder (Miralax) warfarin 2.5 mg tablet 2.5 mg PO DAILY 01/31/25 01/31/25 Previous Rx's ?Medication ?Instructions ?Recorded furosemide 40 mg tablet 60 mg (1.5 x 40 mg) PO DAILY@0700 05/18/23 edema #135 tabs spironolactone 25 mg tablet 25 mg PO DAILY #90 tabs 02/12/24 losartan 25 mg tablet 25 mg PO DAILY #90 tabs 03/20/24 Held on 12/05/24. Instructions: Doctor's Order galantamine 8 mg 24 hr See Rx Instructions .Route 05/06/24 capsule,extended release .COMPLEX #90 caps memantine 5 mg tablet 5 mg PO BID #180 tabs 05/08/24 metoprolol tartrate 100 mg tablet 100 mg PO BID #180 tabs 12/05/24 Allergies Allergy/AdvReac Type Severity Reaction Status Date / Time diltiazem (From Cardizem) Allergy Unknown Verified 12/05/24 09:52 morphine Allergy Unknown Verified 12/05/24 09:52 PFSH ED PFSH: Medical History Chronic anxiety History of iron deficiency anemia Alzheimer disease CKD (chronic kidney disease) stage 2, GFR 60-89 ml/min Hypertension CAD (coronary artery disease) CHF (congestive heart failure) Insomnia Hypothyroid Hyperlipidemia Chronic neck and back pain GERD (gastroesophageal reflux disease) Chronic atrial fibrillation Chronic constipation Surgical History History of heart artery stent Coronary angioplasty/stent placement in 2011 and in 2012 Hx of colonoscopy 2017 H/O esophagogastroduodenoscopy 2011, 2016, and 2018 S/P cholecystectomy H/O section Mitral valve replaced valve replacement 1994 Family History Other CAD (coronary artery disease) Diabetes Social History Smoking and tobacco/nicotine status: never used tobacco/nicotine Alcohol intake: never Substance/Drug Use: never Housing: Assisted Living Facility Marital status: Single Number of children: 1 Current occupational status: disabled Current gender identity: Female Female Reproductive History: Para: 1 Physical Exam Const: COMMON NORMALS: no acute distress, no limitations and alert GENERAL APPEARANCE: cooperative and comfortable HENMT: HEAD & SCALP: normal to inspection FACE & SINUS: normal facial exam Eye: GENERAL EYE: appearance normal, both eyes and all related structures Neck/C-Spine: COMMON NORMALS: supple and no meningeal signs Chest: COMMONS NORMALS: normal inspection of the chest Resp: COMMON NORMALS: normal respiratory effort, No use of accessory muscles and clear to auscultation bilaterally AUSCULTATION: clear to auscultation bilaterally Cardio: COMMON NORMALS: No murmurs present (Cardio) RHYTHM: other (Rhythm is irregular) HEART SOUNDS: Other heart sounds present (Mechanical valve sounds are clearly audible.) GI: COMMON NORMALS: Normal to inspection, nondistended, normoactive bowel sounds present, Soft to palpation and non-tender INSPECTION: Yes normal to inspection AUSCULTATION: Yes normoactive bowel sounds PALPATION: Yes Soft to palpation Back/Pelvis: COMMON NORMALS: thoracic and lumbar spine normal to inspection Extremity: COMMON NORMALS: normal to inspection Neuro: COMMON NORMALS: moves all extremities, no focal motor deficits and no sensory deficits noted SENSORIUM/ORIENTATION: Yes alert MENINGEAL SIGNS: Yes no meningeal signs OTHER: History is of somewhat questionable reliability due to history of dementia Psych: COMMON NORMALS: mental status grossly normal, cooperative and normal affect Skin: COMMON NORMALS: no rashes or lesions noted and turgor normal GENERAL SKIN EXAM: no rashes or lesions noted and turgor normal Course Vital Signs: Vital signs: Vital Signs Temperature 98.0 F 01/31/25 07:36 Pulse Rate 70 01/31/25 11:39 Respiratory Rate 20 H 01/31/25 07:55 Blood Pressure 108/57 01/31/25 11:39 Pulse Oximetry 94 01/31/25 11:39 Oxygen Delivery Me thod Room Air 01/31/25 07:36 MDM - Chest Pain Medical Decision Making 74-year-old with ongoing chest pain for the past approximately 2 hours. On warfarin with history of a mitral valve replacement. Unclear if she also has any other cardiac disease. Her medication list would imply that she does. Further review of her chart will be undertaken. Patient had flat troponins in the ER. Her warfarin was slightly low at 2.25. She reported no further chest pain. She also reported that her headache had resolved. I suspect that her symptoms may be gastrointestinal in nature. She is on pantoprazole. She seemed to be complaining of quite similar symptoms on her prior primary care and cardiology visits that I reviewed. I think she is appropriate for discharge today. Lab Data 01/31/25 07:51 01/31/25 07:51 Radiology Impressions Chest X-Ray 01/31/25 08:47 IMPRESSION: No acute pulmonary disease process. Laboratory Results WBC 4.96 10^3/uL (3.29-11.43) 01/31/25 07:51 RBC 3.38 10^6/uL (3.85-5.65) L 01/31/25 07:51 Hgb 11.60 g/dL (11.27-16.99) 01/31/25 07:51 Hct 35.7 % (36-47) L 01/31/25 07:51 MCV 105.6 fl (85-98) H 01/31/25 07:51 MCH 34.3 pg (27-33) H 01/31/25 07:51 MCHC 32.5 g/dL (30-55) 01/31/25 07:51 RDW 12.7 % (12.1-15.1) 01/31/25 07:51 Plt Count 216 10^3/cmm (157-399) 01/31/25 07:51 MPV 9.5 fL (7.4-10.4) 01/31/25 07:51 Neut % (Auto) 48.9 % 01/31/25 07:51 Lymph % (Auto) 32.7 % 01/31/25 07:51 [place]aver % (Auto) 10.1 % 01/31/25 07:51 Eos % (Auto) 6.3 % 01/31/25 07:51 Baso % (Auto) 1.8 % 01/31/25 07:51 Neut # (Auto) 2.43 10^3/uL (1.8-7.7) 01/31/25 07:51 Lymph # (Auto) 1.6 10^3/uL (0.8-4.8) 01/31/25 07:51 [place] # (Auto) 0.5 10^3/uL (0.2-0.9) 01/31/25 07:51 Eos # (Auto) 0.3 10^3/uL (0.0-0.8) 01/31/25 07:51 Baso # (Auto) 0.1 10^3/uL (0.0-0.1) 01/31/25 07:51 Nucleated RBC % (auto) 0 % 01/31/25 07:51 Nucleated RBCs # 0.0 /100WBC 01/31/25 07:51 PT 26.30 SECONDS (12.1-14.9) H 01/31/25 07:51 INR 2.26 (0.8-1.2) H 01/31/25 07:51 Sodium 139 mmol/L (136-145) 01/31/25 07:51 Potassium 4.1 mmol/L (3.5-5.1) 01/31/25 07:51 Chloride 107 mmol/L (98-107) 01/31/25 07:51 Carbon Dioxide 25 mmol/L (22-29) 01/31/25 07:51 Anion Gap 11.1 (5-19) 01/31/25 07:51 BUN 15 mg/dL (8-23) 01/31/25 07:51 Creatinine 0.9 mg/dL (0.5-0.9) 01/31/25 07:51 GFR Calculation Not Reportable 01/31/25 07:51 Glucose 95 mg/dL (65-115) 01/31/25 07:51 Calculated Osmolality 289 mOsm/kg (285-295) 01/31/25 07:51 Calcium 10.2 mg/dL (8.5-10.5) 01/31/25 07:51 Total Bilirubin 0.9 mg/dL (0.15-1.2) 01/31/25 07:51 AST 18 U/L (0-32) 01/31/25 07:51 ALT 9 U/L (0-33) 01/31/25 07:51 Alkaline Phosphatase 80 U/L (35-105) 01/31/25 07:51 Troponin T Baseline 19 ng/L (0-10) H 01/31/25 07:51 Troponin T 120 Minute 19.97 ng/L (0-10) H 01/31/25 09:32 Delta Troponin T 0.97 ABS# (0-10) 01/31/25 09:32 NT-Pro-B Natriuret Pep 1414 pg/mL (0-450) H 01/31/25 07:51 Total Protein 6.8 g/dL (6.6-8.7) 01/31/25 07:51 Albumin 4.3 g/dL (3.5-5.2) 01/31/25 07:51 Globulin 2.5 g/dL (1.3-4.6) 01/31/25 07: Lipase 43 U/L (13-60) 01/31/25 07:51 Urine Color Dark yellow (Yellow) A 01/31/25 08:05 Urine Appearance Cloudy (CLEAR) A 01/31/25 08:05 Urine pH 5 (5-7) 01/31/25 08:05 Ur Specific Brant 1.020 (1.005-1.030) 01/31/25 08:05 Urine Protein Trace (Negative) 01/31/25 08:05 Urine Glucose (UA) Norm (Normal) 01/31/25 08:05 Urine Ketones Negative (Negative) 01/31/25 08:05 Urine Blood Trace (Negative) H 01/31/25 08:05 Urine Nitrate Negative (Negative) 01/31/25 08:05 Urine Bilirubin 1+ (Negative) H 01/31/25 08:05 Urine Urobilinogen 4 mg/dL (Negative) H 01/31/25 08:05 Ur Leukocyte Esterase 2+ (Negative) H 01/31/25 08:05 Urine RBC 3-5 /hpf (0-2) 01/31/25 08:05 Urine WBC 0-5 /hpf (0-5) 01/31/25 08:05 Ur Squamous Epith Cells 0-5 /hpf (0-5) 01/31/25 08:05 Amorphous Sediment Not Reportable 01/31/25 08:05 Urine Bacteria None seen /hpf (NONE) 01/31/25 08:05 Hyaline Casts 0.40 /lpf 01/31/25 08:05 All radiology interpretation(s) finalized by discharge Discharge Plan Discharge Patient Disposition: Home Clinical Impression: Atypical chest pain, Mitral valve replaced, Dementia, Chronic atrial fibrillation, Epigastric discomfort Condition: Stable Prescriptions: No Action nitroglycerin [Nitrostat] 0.4 mg tablet, sublingual 0.4 mg SUBLINGUAL Q5M PRN (Reason: chest pains) Pepto-Bismol Max St 525 mg/15 mL suspension 525 mg PO Q8H PRN (Reason: Stomach Upset) Rx Instructions: do not exceed 8 doses in a 24 hour period acetaminophen 325 mg capsule 500 mg PO Q8H meclizine 12.5 mg tablet 12.5 mg PO Q6H PRN (Reason: nausea and vomiting ) potassium chloride 20 mEq tablet extended release 20 meq PO BID@0700,1900 mirtazapine 15 mg tablet 15 mg PO DAILY galantamine 8 mg capsule,ext rel. pellets 24 hr See Rx Instructions .ROUTE .COMPLEX Qty: 90 3RF Dose Instruction: TAKE ONE CAPSULE BY MOUTH EVERY DAY WITH BREAKFAST ONLY FOR ALZHEIMERS Rx Instructions: TAKE ONE CAPSULE BY MOUTH EVERY DAY WITH BREAKFAST ONLY FOR ALZHEIMERS metoprolol tartrate 100 mg tablet 100 mg PO BID Qty: 180 3RF furosemide 40 mg tablet 60 mg PO DAILY@0700 Qty: 135 0RF spironolactone 25 mg tablet 25 mg PO DAILY Qty: 90 3RF losartan 25 mg tablet 25 mg PO DAILY Qty: 90 3RF memantine 5 mg tablet 5 mg PO BID Qty: 180 3RF tramadol 50 mg Tablet 50 mg PO Q6H PRN (Reason: Pain) levothyroxine [Euthyrox] 75 mcg tablet 75 mcg PO DAILY@0700 pantoprazole 40 mg tablet,delayed release (DR/EC) 40 mg PO DAILY cetirizine [Zyrtec] 10 mg Tablet 10 mg PO DAILY warfarin 2.5 mg tablet 2.5 mg PO DAILY hydroxyzine HCl 25 mg tablet 25 mg PO TID PRN (Reason: Anxiety) polyethylene glycol 3350 [Miralax] 17 gram/dose Powder 4 g PO DAILY PRN (Reason: Constipation) ipratropium bromide 42 mcg (0.06 %) spray,non-aerosol 2 spray INTRANASAL TID mecobalamin (vitamin B12) [B12 Active] 1,000 mcg Tablet,Chewable 1,000 mcg PO DAILY magnesium hydroxide [Milk of Magnesia] 400 mg/5 mL Suspension 30 ml PO PRN PRN (Reason: bowel movemaent ) amiodarone 200 mg tablet 200 mg PO PRN PRN (Reason: if blood pressure is over 120) Natural Fiber Powder 1 tbsp PO DAILY Discharge Orders: Discharge ED (Routine); Ordered 01/31/25 Ordered By: Alycia Mathews Referrals: Danny Marmolejo MD [Primary Care Provider] - Patient Instructions: Opioid Safety, Pain Management Activity Restrictions/Additional Instructions: Follow up with primary care provider for further evaluation of the symptoms. Print Language: Azerbaijani Coding Level of Care Code ED Manager Programming for Indra Carmona
[2025-01-31] MEDS: acetaminophen 500 mg Tablet 1000 MG PO (07:53)
[2025-01-31 07:57] LABS: Basophils # 0.1 10^3/uL (0.0-0.1); Basophils % 1.8 %; Eosinophils # 0.3 10^3/uL (0.0-0.8); Eosinophils % 6.3 %; Hematocrit 35.7 % (36-47); Lymphocytes # 1.6 10^3/uL (0.8-4.8); Lymphocytes % 32.7 %; Mean Corpuscular HGB Conc 32.5 g/dL (30-55); Mean Corpuscular Hemoglobin 34.3 pg (27-33); Mean Corpuscular Volume 105.6 fl (85-98); Mean Platelet Volume 9.5 fL (7.4-10.4); Monocytes # 0.5 10^3/uL (0.2-0.9); Monocytes % 10.1 %; Neutrophils # 2.43 10^3/uL (1.8-7.7); Neutrophils % 48.9 %; Nucleated Red Blood Cells % 0 %; Platelet Count 216 10^3/cmm (157-399); Red Blood Count 3.38 10^6/uL (3.85-5.65); Red Cell Distribution Width 12.7 % (12.1-15.1); White Blood Count 4.96 10^3/uL (3.29-11.43)
[2025-01-31 08:11] LABS: Bacteria Urine None Seen /hpf; Squamous Epithelial Cell Urine 0-5 /hpf (0-5); WBC Urine 0-5 /hpf (0-5)
[2025-01-31 08:13] LABS: Add Urine Microscopic? YES; Bilirubin Urine 1+ (Negative); Blood Urine Trace (Negative); Glucose Urine UA Norm (Normal); Ketones Urine Negative (Negative); Leukocyte Esterase Urine 2+ (Negative); Nitrate Urine Negative (Negative); Protein Urine Trace (Negative); Urine Appearance Cloudy (CLEAR); Urine Color Dark Yellow (Yellow); Urobilinogen Urine 4 mg/dL (Negative); pH Urine 5 (5-7)
[2025-01-31 08:17] LABS: INR 2.26 (0.8-1.2)
[2025-01-31 08:21] LABS: Troponin(5th) Baseline 19 ng/L (0-10)
[2025-01-31 08:47] LABS: Alanine Aminotransferase 9 U/L (0-33); Albumin Level 4.3 g/dL (3.5-5.2); Alkaline Phosphatase 80 U/L (35-105); Anion Gap 11.1 (5-19); Aspartate Amino Transferase 18 U/L (0-32); Blood Urea Nitrogen 15 mg/dL (8-23); Calcium 10.2 mg/dL (8.5-10.5); Carbon Dioxide 25 mmol/L (22-29); Chloride 107 mmol/L (98-107); Creatinine Clr Calc Pharmacy 49.4532; Globulin 2.5 g/dL (1.3-4.6); Glucose 95 mg/dL (65-115); Lipase 43 U/L (13-60); NT Pro B Type Natriuretic Pept 1414 pg/mL (0-450); Osmolality Calculated 289 mOsm/kg (285-295); Potassium 4.1 mmol/L (3.5-5.1); Sodium 139 mmol/L (136-145); Total Bilirubin 0.9 mg/dL (0.15-1.2); Total Protein 6.8 g/dL (6.6-8.7)
--- NOTE | 2025-01-31 08:47 | XRR_ITS ---
PROCEDURE INFORMATION: Exam: XR Chest Exam date and time: 01/31/2025 8:50 AM Age: 74 years old Clinical indication: Pain; Shortness of breath; Chest pressure; Additional info: Chest pain, SOB TECHNIQUE: Imaging protocol: Radiologic exam of the chest. Views: 1 view. COMPARISON: CR XR chest 1V portable [id number] 04/11/2024 4:55 AM FINDINGS: Lungs: Hyperinflated lungs. Scarring in the left lateral lung base. Pleural spaces: Unremarkable. No pleural effusion. No pneumothorax. Heart/Mediastinum: Unremarkable. No cardiomegaly. Bones/joints: Chronic fracture deformity of the right proximal humerus. Scoliosis XR/XR chest 1V portable [id number] IMPRESSION: No acute pulmonary disease process.
--- NOTE | 2025-01-31 09:44 | ECG_ITS ---
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
[2025-01-31 09:57] LABS: Troponin 5 2HR 19.97 ng/L (0-10); Troponin 5 2HR Delta 0.97 ABS# (0-10)
== END 2025-01-31 11:39 | disposition home or self-care (01) ==
PROVIDERS: Emergency Provider Emergency Medicine; PCP Family Medicine
DX: R07.89 Other chest pain (principal); Z95.2 Presence of prosthetic heart valve; F03.90 Unspecified dementia, unspecified severity, without behavioral disturbance, psychotic disturbance, mood disturbance, and anxiety; I48.20 Chronic atrial fibrillation, unspecified; R10.13 Epigastric pain; Z79.01 Long term (current) use of anticoagulants; I25.10 Atherosclerotic heart disease of native coronary artery without angina pectoris; E78.5 Hyperlipidemia, unspecified; I13.0 Hypertensive heart and chronic kidney disease with heart failure and stage 1 through stage 4 chronic kidney disease, or unspecified chronic kidney disease; N18.9 Chronic kidney disease, unspecified; I50.9 Heart failure, unspecified
CPT/HCPCS: 36415; 71045; 80053; 81001; 83690; 83880; 84484; 85025; 85610; 93005; 99285; J9999

== ENCOUNTER 2025-02-07 17:05 | Emergency (ER) | payer MEDICARE, MEDICAID, SELFPAY ==
[2025-02-07 17:08] VITALS: BP 134/69; PULSE 78; RESP 15; TEMP 36.8; O2SAT 98; BMI 26.5
--- NOTE | 2025-02-07 17:22 | CTR_ITS ---
PROCEDURE INFORMATION: Exam: CT Head Without Contrast Exam date and time: 02/07/2025 6:04 PM Age: 74 years old Clinical indication: Injury or trauma; Blunt trauma (contusions or hematomas); Fall with headstrike. Hematoma to frontal. Anticoagulated. ; Additional info: Forehead injury TECHNIQUE: Imaging protocol: Computed tomography of the head without contrast. Radiation optimization: All CT scans at this facility use at least one of these dose optimization techniques: automated exposure control; mA and/or kV adjustment per patient size (includes targeted exams where dose is matched to clinical indication); or iterative reconstruction. COMPARISON: CT head wo con* [id number] 11/11/2020 11:03 AM RADIATION DOSE METRICS: Total DLP (mGy-cm): 1125.18 FINDINGS: Brain: Negative for intracranial hemorrhage. Central atrophy and moderate periventricular deep white matter hypodensity, likely secondary to chronic microvascular ischemia. Cerebral ventricles: Moderate, symmetrical compensatory enlargement of the ventricles and basal cisterns. No findings to suggest acute hydrocephalus. Paranasal sinuses: Visualized sinuses are unremarkable. No fluid levels. Mastoid air cells: Visualized mastoid air cells are well aerated. Bones: Unremarkable. No acute fracture. Soft tissues: Mild forehead soft tissue swelling. Other findings: Severe intracranial atherosclerosis. CT/CT head wo con* [id number] IMPRESSION: 1. Negative for intracranial hemorrhage. No identified acute intracranial pathology. 2. Mild forehead soft tissue swelling. Negative for underlying calvarial fracture.
--- NOTE | 2025-02-07 17:23 | W.ED.HEATRA ---
Documented by User: Juany Song MD 02/07/25 17:24 HPI - Head Injury General: Chief complaint: Head Injury Stated complaint: hematoma forehead Time Seen by Provider: 02/07/25 17:20 History of Present Illness: 74-year-old female who presents emergency room by ambulance after she bumped her head on a chair. She has no other injuries. She has a bruise on her forehead. She is not on anticoagulation currently. No loss of consciousness. No altered mental status. No focal motor deficits. No other injuries. Related Data Home Medications ?Medication ?Instructions ?Recorded ?Confirmed nitroglycerin 0.4 mg sublingual 0.4 mg sublingual Q5M PRN chest 11/07/19 01/31/25 tablet (Nitrostat) pains levothyroxine 75 mcg tablet 75 mcg PO DAILY@0700 hypothyroidism 11/11/20 01/31/25 (Euthyrox) tramadol 50 mg tablet 50 mg PO Q6H PRN Pain 11/11/20 01/31/25 potassium chloride 20 mEq 20 meq PO BID@0700,1900 12/22/20 01/31/25 tablet,extended release meclizine 12.5 mg tablet 12.5 mg PO Q6H PRN nausea and 04/19/21 01/31/25 vomiting bismuth subsalicylate 525 mg/15 mL 525 mg PO Q8H PRN Stomach Upset 08/15/21 01/31/25 oral suspension (Pepto-Bismol Max St) psyllium seed (sugar) oral powder 1 tbsp PO DAILY 10/21/23 01/31/25 mirtazapine 15 mg tablet 15 mg PO DAILY 05/21/24 01/31/25 acetaminophen 325 mg capsule 500 mg PO Q8H Pain 12/05/24 01/31/25 pantoprazole 40 mg tablet,delayed 40 mg PO DAILY 12/05/24 01/31/25 release amiodarone 200 mg tablet 200 mg PO PRN PRN if blood 01/31/25 01/31/25 pressure is over 120 cetirizine 10 mg tablet (Zyrtec) 10 mg PO DAILY 01/31/25 01/31/25 hydroxyzine HCl 25 mg tablet 25 mg PO TID PRN Anxiety 01/31/25 01/31/25 ipratropium bromide 42 mcg (0.06 2 spray intranasal TID 01/31/25 01/31/25 %) nasal spray magnesium hydroxide 400 mg/5 mL 30 ml PO PRN PRN bowel movemaent 01/31/25 01/31/25 oral suspension (Milk of Magnesia) mecobalamin (vitamin B12) 1,000 1,000 mcg PO DAILY 01/31/25 01/31/25 mcg chewable tablet (B12 Active) polyethylene glycol 3350 17 4 g PO DAILY PRN Constipation 01/31/25 01/31/25 gram/dose oral powder (Miralax) warfarin 2.5 mg tablet 2.5 mg PO DAILY 01/31/25 01/31/25 Previous Rx's ?Medication ?Instructions ?Recorded furosemide 40 mg tablet 60 mg (1.5 x 40 mg) PO DAILY@0700 05/18/23 edema #135 tabs spironolactone 25 mg tablet 25 mg PO DAILY #90 tabs 02/12/24 losartan 25 mg tablet 25 mg PO DAILY #90 tabs 03/20/24 Held on 12/05/24. Instructions: Doctor's Order galantamine 8 mg 24 hr See Rx Instructions .Route 05/06/24 capsule,extended release .COMPLEX #90 caps memantine 5 mg tablet 5 mg PO BID #180 tabs 05/08/24 metoprolol tartrate 100 mg tablet 100 mg PO BID #180 tabs 12/05/24 Allergies Allergy/AdvReac Type Severity Reaction Status Date / Time diltiazem (From Cardizem) Allergy Unknown Verified 02/07/25 17:20 morphine Allergy Unknown Verified 02/07/25 17:20 Review of Systems Narrative: Constitutional symptoms: Negative except as documented in HPI. Skin symptoms: Negative except as documented in HPI. Eye symptoms: Negative except as documented in HPI. ENMT symptoms: Negative except as documented in HPI. Respiratory symptoms: Negative except as documented in HPI. Cardiovascular symptoms: Negative except as documented in HPI. Gastrointestinal symptoms: Negative except as documented in HPI. Genitourinary symptoms: Negative except as documented in HPI. Musculoskeletal symptoms: Negative except as documented in HPI. Neurologic symptoms: Negative except as documented in HPI. Psychiatric symptoms: Negative except as documented in HPI. Endocrine symptoms: Negative except as documented in HPI. PFSH ED PFSH: Medical History Chronic anxiety History of iron deficiency anemia Alzheimer disease CKD (chronic kidney disease) stage 2, GFR 60-89 ml/min Hypertension CAD (coronary artery disease) CHF (congestive heart failure) Insomnia Hypothyroid Hyperlipidemia Chronic neck and back pain GERD (gastroesophageal reflux disease) Chronic atrial fibrillation Chronic constipation Surgical History History of heart artery stent Coronary angioplasty/stent placement in 2011 and in 2012 Hx of colonoscopy 2017 H/O esophagogastroduodenoscopy 2011, 2016, and 2018 S/P cholecystectomy H/O section Mitral valve replaced valve replacement 1994 Family History Other CAD (coronary artery disease) Diabetes Social History Smoking and tobacco/nicotine status: never used tobacco/nicotine Alcohol intake: never Substance/Drug Use: never Housing: Assisted Living Facility Marital status: Single Number of children: 1 Current occupational status: disabled Current gender identity: Female Female Reproductive History: Para: 1 Physical Exam Narrative: EXAM NARRATIVE: General: Alert, no acute distress. Skin: warm and dry Head: Normocephalic, hematoma to the right central forehead. Neck: Trachea midline Eye: Extraocular movements are intact. Ears, nose, mouth and throat: Oral mucosa moist Respiratory: Respirations are non-labored Musculoskeletal: Normal ROM Neurological: Alert and oriented, No focal neurological deficit observed. Psychiatric: Cooperative, appropriate mood & affect. Course Vital Signs: Vital signs: Vital Signs Temperature 98.3 F 02/07/25 17:08 Pulse Rate 89 02/07/25 20:09 Respiratory Rate 19 H 02/07/25 20:09 Blood Pressure 120/67 02/07/25 20:09 Pulse Oximetry 96 02/07/25 20:09 Oxygen Delivery Me thod Room Air 02/07/25 18:57 MDM - Head Injury Medcial Decision Making Patient care transitioned to Dr. Lyons at shift change. CT of the head is pending. Lab Data Radiology Impressions Head CT 02/07/25 17:22 IMPRESSION: 1. Negative for intracranial hemorrhage. No identified acute intracranial pathology. 2. Mild forehead soft tissue swelling. Negative for underlying calvarial fracture. Discharge Plan Discharge Patient Disposition: Home Clinical Impression: Head injury, Forehead contusion Condition: Stable Prescriptions: No Action nitroglycerin [Nitrostat] 0.4 mg tablet, sublingual 0.4 mg SUBLINGUAL Q5M PRN (Reason: chest pains) Pepto-Bismol Max St 525 mg/15 mL suspension 525 mg PO Q8H PRN (Reason: Stomach Upset) Rx Instructions: do not exceed 8 doses in a 24 hour period acetaminophen 325 mg capsule 500 mg PO Q8H meclizine 12.5 mg tablet 12.5 mg PO Q6H PRN (Reason: nausea and vomiting ) potassium chloride 20 mEq tablet extended release 20 meq PO BID@0700,1900 mirtazapine 15 mg tablet 15 mg PO DAILY galantamine 8 mg capsule,ext rel. pellets 24 hr See Rx Instructions .ROUTE .COMPLEX Qty: 90 3RF Dose Instruction: TAKE ONE CAPSULE BY MOUTH EVERY DAY WITH BREAKFAST ONLY FOR ALZHEIMERS Rx Instructions: TAKE ONE CAPSULE BY MOUTH EVERY DAY WITH BREAKFAST ONLY FOR ALZHEIMERS metoprolol tartrate 100 mg tablet 100 mg PO BID Qty: 180 3RF furosemide 40 mg tablet 60 mg PO DAILY@0700 Qty: 135 0RF spironolactone 25 mg tablet 25 mg PO DAILY Qty: 90 3RF losartan 25 mg tablet 25 mg PO DAILY Qty: 90 3RF memantine 5 mg tablet 5 mg PO BID Qty: 180 3RF tramadol 50 mg Tablet 50 mg PO Q6H PRN (Reason: Pain) levothyroxine [Euthyrox] 75 mcg tablet 75 mcg PO DAILY@0700 pantoprazole 40 mg tablet,delayed release (DR/EC) 40 mg PO DAILY cetirizine [Zyrtec] 10 mg Tablet 10 mg PO DAILY warfarin 2.5 mg tablet 2.5 mg PO DAILY hydroxyzine HCl 25 mg tablet 25 mg PO TID PRN (Reason: Anxiety) polyethylene glycol 3350 [Miralax] 17 gram/dose Powder 4 g PO DAILY PRN (Reason: Constipation) ipratropium bromide 42 mcg (0.06 %) spray,non-aerosol 2 spray INTRANASAL TID mecobalamin (vitamin B12) [B12 Active] 1,000 mcg Tablet,Chewable 1,000 mcg PO DAILY magnesium hydroxide [Milk of Magnesia] 400 mg/5 mL Suspension 30 ml PO PRN PRN (Reason: bowel movemaent ) amiodarone 200 mg tablet 200 mg PO PRN PRN (Reason: if blood pressure is over 120) Natural Fiber Powder 1 tbsp PO DAILY Discharge Orders: Discharge ED (Routine); Ordered 02/07/25 Ordered By: Charlie Lyons Referrals: Danny Marmolejo MD [Primary Care Provider] - Discharge Diet: Usual diet Discharge Activity: Increase activity as tolerated Patient Instructions: Fall Prevention for Older Adults (ED), Head Injury (ED), Opioid Safety, Pain Management Activity Restrictions/Additional Instructions: Thank you for choosing [facility] for your healthcare needs today. Please realize this is an emergency room and that we are providing you with a medical screening exam and this may not be complete and all inclusive of all the testing and or work up that you may need to determine your ailment or severity of your illness. You have been screened and evaluated and felt safe for discharge. Health conditions do change or evolve sometimes and as such it is important that you follow up with your Primary Doctor to be re checked, 3-5 days is a general good time frame for follow up. You are always welcome to return to the ED for re assessment if your symptoms are worsening or you have new concerns Print Language: Cook Islander Coding Level of Care Code ED Boat Operator for Chg Fwd Documented by User: Charlie Lyons, 02/08/25 02:03 HPI - Head Injury General: Chief complaint: Head Injury Stated complaint: hematoma forehead Time Seen by Provider: 02/07/25 17:20 Related Data Home Medications ?Medication ?Instructions ?Recorded ?Confirmed nitroglycerin 0.4 mg sublingual 0.4 mg sublingual Q5M PRN chest 11/07/19 01/31/25 tablet (Nitrostat) pains levothyroxine 75 mcg tablet 75 mcg PO DAILY@0700 hypothyroidism 11/11/20 01/31/25 (Euthyrox) tramadol 50 mg tablet 50 mg PO Q6H PRN Pain 11/11/20 01/31/25 potassium chloride 20 mEq 20 meq PO BID@0700,1900 12/22/20 01/31/25 tablet,extended release meclizine 12.5 mg tablet 12.5 mg PO Q6H PRN nausea and 04/19/21 01/31/25 vomiting bismuth subsalicylate 525 mg/15 mL 525 mg PO Q8H PRN Stomach Upset 08/15/21 01/31/25 oral suspension (Pepto-Bismol Max St) psyllium seed (sugar) oral powder 1 tbsp PO DAILY 10/21/23 01/31/25 mirtazapine 15 mg tablet 15 mg PO DAILY 05/21/24 01/31/25 acetaminophen 325 mg capsule 500 mg PO Q8H Pain 12/05/24 01/31/25 pantoprazole 40 mg tablet,delayed 40 mg PO DAILY 12/05/24 01/31/25 release amiodarone 200 mg tablet 200 mg PO PRN PRN if blood 01/31/25 01/31/25 pressure is over 120 cetirizine 10 mg tablet (Zyrtec) 10 mg PO DAILY 01/31/25 01/31/25 hydroxyzine HCl 25 mg tablet 25 mg PO TID PRN Anxiety 01/31/25 01/31/25 ipratropium bromide 42 mcg (0.06 2 spray intranasal TID 01/31/25 01/31/25 %) nasal spray magnesium hydroxide 400 mg/5 mL 30 ml PO PRN PRN bowel movemaent 01/31/25 01/31/25 oral suspension (Milk of Magnesia) mecobalamin (vitamin B12) 1,000 1,000 mcg PO DAILY 01/31/25 01/31/25 mcg chewable tablet (B12 Active) polyethylene glycol 3350 17 4 g PO DAILY PRN Constipation 01/31/25 01/31/25 gram/dose oral powder (Miralax) warfarin 2.5 mg tablet 2.5 mg PO DAILY 01/31/25 01/31/25 Previous Rx's ?Medication ?Instructions ?Recorded furosemide 40 mg tablet 60 mg (1.5 x 40 mg) PO DAILY@0700 05/18/23 edema #135 tabs spironolactone 25 mg tablet 25 mg PO DAILY #90 tabs 02/12/24 losartan 25 mg tablet 25 mg PO DAILY #90 tabs 03/20/24 Held on 12/05/24. Instructions: Doctor's Order galantamine 8 mg 24 hr See Rx Instructions .Route 05/06/24 capsule,extended release .COMPLEX #90 caps memantine 5 mg tablet 5 mg PO BID #180 tabs 05/08/24 metoprolol tartrate 100 mg tablet 100 mg PO BID #180 tabs 12/05/24 Allergies Allergy/AdvReac Type Severity Reaction Status Date / Time diltiazem (From Cardizem) Allergy Unknown Verified 02/07/25 17:20 morphine Allergy Unknown Verified 02/07/25 17:20 [facility] ED PFS: Medical History Chronic anxiety History of iron deficiency anemia Alzheimer disease CKD (chronic kidney disease) stage 2, GFR 60-89 ml/min Hypertension CAD (coronary artery disease) CHF (congestive heart failure) Insomnia Hypothyroid Hyperlipidemia Chronic neck and back pain GERD (gastroesophageal reflux disease) Chronic atrial fibrillation Chronic constipation Surgical History History of heart artery stent Coronary angioplasty/stent placement in 2011 and in 2012 Hx of colonoscopy 2017 H/O esophagogastroduodenoscopy 2011, 2016, and 2017 S/P cholecystectomy H/O section Mitral valve replaced valve replacement 1994 Family History Other CAD (coronary artery disease) Diabetes Social History Smoking and tobacco/nicotine status: never used tobacco/nicotine Alcohol intake: never Substance/Drug Use: never Housing: Assisted Living Facility Marital status: Single Number of children: 1 Current occupational status: disabled Current gender identity: Female Course Vital Signs: Vital signs: Vital Signs Temperature 98.3 F 02/07/25 17:08 Pulse Rate 89 02/07/25 20:09 Respiratory Rate 19 H 02/07/25 20:09 Blood Pressure 120/67 02/07/25 20:09 Pulse Oximetry 96 02/07/25 20:09 Oxygen Delivery Me thod Room Air 02/07/25 18:57 MDM - Head Injury Medcial Decision Making Patient care transitioned to Dr. Lyons at shift change. CT of the head is pending. Patient picked up at shift change from the previous physician. Head CT is negative. She has mild forehead soft tissue swelling with no fracture. On my repeat exam, she appears stable. She will be discharged. To return for new symptoms. Lab Data Radiology Impressions Head CT 02/07/25 17:22 IMPRESSION: 1. Negative for intracranial hemorrhage. No identified acute intracranial pathology. 2. Mild forehead soft tissue swelling. Negative for underlying calvarial fracture. All radiology interpretation(s) finalized by discharge Discharge Plan Discharge Patient Disposition: Home Clinical Impression: Head injury, Forehead contusion Condition: Stable Prescriptions: No Action nitroglycerin [Nitrostat] 0.4 mg tablet, sublingual 0.4 mg SUBLINGUAL Q5M PRN (Reason: chest pains) Pepto-Bismol Max St 525 mg/15 mL suspension 525 mg PO Q8H PRN (Reason: Stomach Upset) Rx Instructions: do not exceed 8 doses in a 24 hour period acetaminophen 325 mg capsule 500 mg PO Q8H meclizine 12.5 mg tablet 12.5 mg PO Q6H PRN (Reason: nausea and vomiting ) potassium chloride 20 mEq tablet extended release 20 meq PO BID@0700,1900 mirtazapine 15 mg tablet 15 mg PO DAILY galantamine 8 mg capsule,ext rel. pellets 24 hr See Rx Instructions .ROUTE .COMPLEX Qty: 90 3RF Dose Instruction: TAKE ONE CAPSULE BY MOUTH EVERY DAY WITH BREAKFAST ONLY FOR ALZHEIMERS Rx Instructions: TAKE ONE CAPSULE BY MOUTH EVERY DAY WITH BREAKFAST ONLY FOR ALZHEIMERS metoprolol tartrate 100 mg tablet 100 mg PO BID Qty: 180 3RF furosemide 40 mg tablet 60 mg PO DAILY@0700 Qty: 135 0RF spironolactone 25 mg tablet 25 mg PO DAILY Qty: 90 3RF losartan 25 mg tablet 25 mg PO DAILY Qty: 90 3RF memantine 5 mg tablet 5 mg PO BID Qty: 180 3RF tramadol 50 mg Tablet 50 mg PO Q6H PRN (Reason: Pain) levothyroxine [Euthyrox] 75 mcg tablet 75 mcg PO DAILY@0700 pantoprazole 40 mg tablet,delayed release (DR/EC) 40 mg PO DAILY cetirizine [Zyrtec] 10 mg Tablet 10 mg PO DAILY warfarin 2.5 mg tablet 2.5 mg PO DAILY hydroxyzine HCl 25 mg tablet 25 mg PO TID PRN (Reason: Anxiety) polyethylene glycol 3350 [Miralax] 17 gram/dose Powder 4 g PO DAILY PRN (Reason: Constipation) ipratropium bromide 42 mcg (0.06 %) spray,non-aerosol 2 spray INTRANASAL TID mecobalamin (vitamin B12) [B12 Active] 1,000 mcg Tablet,Chewable 1,000 mcg PO DAILY magnesium hydroxide [Milk of Magnesia] 400 mg/5 mL Suspension 30 ml PO PRN PRN (Reason: bowel movemaent ) amiodarone 200 mg tablet 200 mg PO PRN PRN (Reason: if blood pressure is over 120) Natural Fiber Powder 1 tbsp PO DAILY Discharge Orders: Discharge ED (Routine); Ordered 02/07/25 Ordered By: Charlie Lyons Referrals: Danny Marmolejo MD [Primary Care Provider] - Discharge Diet: Usual diet Discharge Activity: Increase activity as tolerated Patient Instructions: Fall Prevention for Older Adults (ED), Head Injury (ED), Opioid Safety, Pain Management Activity Restrictions/Additional Instructions: Thank you for choosing [facility] for your healthcare needs today. Please realize this is an emergency room and that we are providing you with a medical screening exam and this may not be complete and all inclusive of all the testing and or work up that you may need to determine your ailment or severity of your illness. You have been screened and evaluated and felt safe for discharge. Health conditions do change or evolve sometimes and as such it is important that you follow up with your Primary Doctor to be re checked, 3-5 days is a general good time frame for follow up. You are always welcome to return to the ED for re assessment if your symptoms are worsening or you have new concerns Print Language: Cook Islander Coding Level of Care Code ED Boat Operator for Indra Carmona
[2025-02-07 18:19] VITALS: BP 98/58; PULSE 70; RESP 18; O2SAT 95
[2025-02-07 18:57] VITALS: BP 101/77; PULSE 84; RESP 15; O2SAT 96
[2025-02-07 20:09] VITALS: BP 120/67; PULSE 89; RESP 19; O2SAT 96
== END 2025-02-07 20:13 | disposition home or self-care (01) ==
PROVIDERS: Emergency Provider Emergency Medicine; PCP Family Medicine
DX: S00.83XA Contusion of other part of head, initial encounter (principal); S09.90XA Unspecified injury of head, initial encounter; Z79.01 Long term (current) use of anticoagulants; I25.10 Atherosclerotic heart disease of native coronary artery without angina pectoris; E78.5 Hyperlipidemia, unspecified; N18.2 Chronic kidney disease, stage 2 (mild); I50.9 Heart failure, unspecified; X58.XXXA Exposure to other specified factors, initial encounter
CPT/HCPCS: 70450; 99284

== ENCOUNTER → 2025-03-04 13:14 | Outpatient (BNVA) | payer MEDICARE, MEDICAID, SELFPAY | PROVIDERS: PCP Family Medicine; Visit Provider Podiatrist Foot & Ankle Surgery | DX: E11.22 Type 2 diabetes mellitus with diabetic chronic kidney disease (principal); B35.1 Tinea unguium; L85.3 Xerosis cutis; N18.2 Chronic kidney disease, stage 2 (mild) | CPT/HCPCS: 11721 ==

== ENCOUNTER 2025-03-10 22:27 | Emergency (ER) | payer MEDICARE, MEDICAID, SELFPAY ==
[2025-03-10 22:30] VITALS: BP 123/82; PULSE 87; RESP 18; TEMP 36.7; O2SAT 94; BMI 27.1
[2025-03-10 22:34] VITALS: BP 123/82; PULSE 87; RESP 12; O2SAT 94
--- NOTE | 2025-03-10 22:53 | XRR_ITS ---
PROCEDURE INFORMATION: Exam: XR Chest Exam date and time: 03/10/2025 11:15 PM Age: 74 years old Clinical indication: Pain; Chest pressure; Additional info: Chest pain TECHNIQUE: Imaging protocol: Radiologic exam of the chest. Views: 1 view. COMPARISON: CR (CHEST, ) 01/31/2025 8:50 AM FINDINGS: Lungs: Bibasilar left greater than right atelectasis versus infiltrate. Pleural spaces: Unremarkable. No pleural effusion. No pneumothorax. Heart/Mediastinum: Cardiomegaly. Bones/joints: Sternotomy wires. XR/XR chest 1V portable [id number] IMPRESSION: 1. Cardiomegaly. 2. Bibasilar left greater than right atelectasis versus infiltrate. 3. Sternotomy wires.
--- NOTE | 2025-03-10 22:53 | ECG_ITS ---
[employer] Test Date: 2025-03-10 Pat Name: Odilia Ulloa Department: Room: Gender: Female [employer] Member: : 1950 Requested By: Marco Antonio Rivas Order Number: [id number] Supriya MD: PORTIA GAGNON Measurements Intervals [place] Rate: 82 P: 0 WY: 0 QRS: 64 QRSD: 130 T: 58 QT: 402 QTc: 472 Interpretive Statements ATRIAL FIBRILLATION POSSIBLE RIGHT VENTRICULAR CONDUCTION DELAY [RSR (QR) IN V1/V2] ABNORMAL RHYTHM ECG Compared to ECG 01/31/2025 10:36:11 No significant changes Electronically Signed On 03-12-2025 23:32:33 CDT by PORTIA GAGNON [email or web address]
[2025-03-10 23:09] LABS: Basophils # 0.1 10^3/uL (0.0-0.1); Basophils % 1.4 %; Eosinophils # 0.2 10^3/uL (0.0-0.8); Eosinophils % 3.8 %; Hematocrit 32.3 % (36-47); Lymphocytes # 1.6 10^3/uL (0.8-4.8); Lymphocytes % 27.6 %; Mean Corpuscular HGB Conc 32.5 g/dL (30-55); Mean Corpuscular Hemoglobin 35.1 pg (27-33); Mean Platelet Volume 9.4 fL (7.4-10.4); Monocytes # 0.6 10^3/uL (0.2-0.9); Monocytes % 10.6 %; Neutrophils # 3.28 10^3/uL (1.8-7.7); Neutrophils % 56.3 %; Nucleated Red Blood Cells % 0 %; Platelet Count 180 10^3/cmm (157-399); Red Blood Count 2.99 10^6/uL (3.85-5.65); Red Cell Distribution Width 13.1 % (12.1-15.1); White Blood Count 5.83 10^3/uL (3.29-11.43)
[2025-03-10 23:34] VITALS: BP 123/82; PULSE 72; RESP 17; O2SAT 95
[2025-03-10 23:52] LABS: Troponin(5th) Baseline 12 ng/L (0-10)
[2025-03-11 00:34] VITALS: BP 128/72; PULSE 86; RESP 17; O2SAT 96
[2025-03-11 00:38] LABS: Alanine Aminotransferase 15 U/L (0-33); Albumin Level 4.2 g/dL (3.5-5.2); Alkaline Phosphatase 81 U/L (35-105); Anion Gap 14.6 (5-19); Aspartate Amino Transferase 25 U/L (0-32); Blood Urea Nitrogen 20 mg/dL (8-23); Calcium 10.2 mg/dL (8.5-10.5); Carbon Dioxide 26 mmol/L (22-29); Chloride 104 mmol/L (98-107); Creatinine Clr Calc Pharmacy 39.7024; Globulin 2.5 g/dL (1.3-4.6); Glucose 94 mg/dL (65-115); Osmolality Calculated 292 mOsm/kg (285-295); Potassium 4.6 mmol/L (3.5-5.1); Sodium 140 mmol/L (136-145); Total Bilirubin 0.5 mg/dL (0.15-1.2); Total Protein 6.7 g/dL (6.6-8.7)
[2025-03-11 00:41] LABS: NT Pro B Type Natriuretic Pept 2012 pg/mL (0-450)
[2025-03-11 01:42] VITALS: BP 130/86; PULSE 72; RESP 17; O2SAT 93
[2025-03-11 01:51] LABS: Troponin 5 2HR 6.91 ng/L (0-10)
[2025-03-11 01:56] LABS: Troponin 5 2HR Delta -5.09 ABS# (0-10)
[2025-03-11 02:00] VITALS: BP 121/68; PULSE 80; O2SAT 96
[2025-03-11] MEDS: acetaminophen 325 mg Tablet 650 MG PO (02:02)
[2025-03-11 02:48] VITALS: BP 126/72; PULSE 84; O2SAT 95
--- NOTE | 2025-03-11 05:30 | W.ED.CHESTPA ---
HPI - Chest Pain General: Chief Complaint: Chest Pain Stated Complaint: CHEST PAIN Time Seen by Provider: 03/10/25 22:52 History of Present Illness: Patient is a pleasant 74-year-old female brought by ambulance for chest pain from her living facility. She states the pain came on at rest when she laid down. Pain was 3 of 10, sharp, substernal, with radiation to her back. Pain resolved spontaneously prior to arrival in the emergency department. She has had similar pain in the past. She denies antecedent or concomitant shortness of breath, lightheadedness, nausea, vomiting, diarrhea, constipation, fever, and has no other acute complaints. Related Data Home Medications ?Medication ?Instructions ?Recorded ?Confirmed nitroglycerin 0.4 mg sublingual 0.4 mg sublingual Q5M PRN chest 11/07/19 03/04/25 tablet (Nitrostat) pains levothyroxine 75 mcg tablet 75 mcg PO DAILY@0700 hypothyroidism 11/11/20 03/04/25 (Euthyrox) tramadol 50 mg tablet 50 mg PO Q6H PRN Pain 11/11/20 03/04/25 potassium chloride 20 mEq 20 meq PO BID@0700,1900 12/22/20 03/04/25 tablet,extended release meclizine 12.5 mg tablet 12.5 mg PO Q6H PRN nausea and 04/19/21 03/04/25 vomiting bismuth subsalicylate 525 mg/15 mL 525 mg PO Q8H PRN Stomach Upset 08/15/21 03/04/25 oral suspension (Pepto-Bismol Max St) psyllium seed (sugar) oral powder 1 tbsp PO DAILY 10/21/23 03/04/25 mirtazapine 15 mg tablet 15 mg PO DAILY 05/21/24 03/04/25 acetaminophen 325 mg capsule 500 mg PO Q8H Pain 12/05/24 03/04/25 pantoprazole 40 mg tablet,delayed 40 mg PO DAILY 12/05/24 03/04/25 release amiodarone 200 mg tablet 200 mg PO PRN PRN if blood 01/31/25 03/04/25 pressure is over 120 cetirizine 10 mg tablet (Zyrtec) 10 mg PO DAILY 01/31/25 03/04/25 hydroxyzine HCl 25 mg tablet 25 mg PO TID PRN Anxiety 01/31/25 03/04/25 ipratropium bromide 42 mcg (0.06 2 spray intranasal TID 01/31/25 03/04/25 %) nasal spray magnesium hydroxide 400 mg/5 mL 30 ml PO PRN PRN bowel movemaent 01/31/25 03/04/25 oral suspension (Milk of Magnesia) mecobalamin (vitamin B12) 1,000 1,000 mcg PO DAILY 01/31/25 03/04/25 mcg chewable tablet (B12 Active) polyethylene glycol 3350 17 4 g PO DAILY PRN Constipation 01/31/25 03/04/25 gram/dose oral powder (Miralax) warfarin 2.5 mg tablet 2.5 mg PO DAILY 01/31/25 03/04/25 Previous Rx's ?Medication ?Instructions ?Recorded furosemide 40 mg tablet 60 mg (1.5 x 40 mg) PO DAILY@0700 05/18/23 edema #135 tabs losartan 25 mg tablet 25 mg PO DAILY #90 tabs 03/20/24 Held on 12/05/24. Instructions: Doctor's Order galantamine 8 mg 24 hr See Rx Instructions .Route 05/06/24 capsule,extended release .COMPLEX #90 caps memantine 5 mg tablet 5 mg PO BID #180 tabs 05/08/24 metoprolol tartrate 100 mg tablet 100 mg PO BID #180 tabs 12/05/24 spironolactone 25 mg tablet 25 mg PO DAILY #90 tabs 03/03/25 Allergies Allergy/AdvReac Type Severity Reaction Status Date / Time diltiazem (From Cardizem) Allergy Unknown Verified 03/10/25 22:34 morphine Allergy Unknown Verified 03/10/25 22:34 [facility] ED PFS: Medical History Chronic anxiety History of iron deficiency anemia Alzheimer disease CKD (chronic kidney disease) stage 2, GFR 60-89 ml/min Hypertension CAD (coronary artery disease) CHF (congestive heart failure) Insomnia Hypothyroid Hyperlipidemia Chronic neck and back pain GERD (gastroesophageal reflux disease) Chronic atrial fibrillation Chronic constipation Surgical History History of heart artery stent Coronary angioplasty/stent placement in 2011 and in 2012 Hx of colonoscopy 2018 H/O esophagogastroduodenoscopy 2011, 2016, and 2018 S/P cholecystectomy H/O section Mitral valve replaced valve replacement 1994 Family History Other CAD (coronary artery disease) Diabetes Social History Smoking and tobacco/nicotine status: never used tobacco/nicotine Alcohol intake: never Substance/Drug Use: never Housing: Assisted Living Facility Marital status: Single Number of children: 1 Current occupational status: disabled Current gender identity: Female Female Reproductive History: Para: 1 Physical Exam Const: COMMON NORMALS: no acute distress, patient oriented x3 and alert HENMT: COMMON NORMALS: normocephalic and atraumatic HEAD & SCALP: normocephalic and atraumatic Eye: COMMON NORMALS: Equal, round and reactive pupils present, EOMs intact bilaterally and no scleral icterus PUPIL: Yes Equal, round and reactive pupils present Chest: OTHER: Chest pain is not reproducible with palpation or deep inspiration. Resp: COMMON NORMALS: normal respiratory effort and No retractions Cardio: COMMON NORMALS: regular rate, regular rhythm and No murmurs present (Cardio) RATE: regular rate RHYTHM: regular rhythm GI: COMMON NORMALS: Normal to inspection, nondistended, normoactive bowel sounds present, Soft to palpation and non-tender PALPATION: Yes Soft to palpation Neuro: COMMON NORMALS: patient oriented x3 SENSORIUM/ORIENTATION: Yes alert Skin: COMMON NORMALS: no rashes or lesions noted GENERAL SKIN EXAM: no rashes or lesions noted Course Vital Signs: Vital signs: Vital Signs Temperature 98.0 F 03/10/25 22:30 Pulse Rate 84 03/11/25 02:48 Respiratory Rate 17 03/11/25 01:42 Blood Pressure 126/72 03/11/25 02:48 Pulse Oximetry 95 03/11/25 02:48 Oxygen Delivery Me thod Room Air 03/11/25 02:00 MDM - Chest Pain Medical Decision Making In summary, patient is a well-appearing 74-year-old female seen for chest pain which resolved spontaneously prior to arrival in the emergency department. EKG shows nothing acute and troponin is stable x 2. Remainder of workup is noncontributory. She was discharged back to her living facility in stable and improved condition with follow-up primary care as needed. I do not suspect ACS, PE, pneumonia, or any other emergent process Lab Data 03/10/25 23:00 03/10/25 23:28 Radiology Impressions Chest X-Ray 03/10/25 22:53 IMPRESSION: 1. Cardiomegaly. 2. Bibasilar left greater than right atelectasis versus infiltrate. 3. Sternotomy wires. Laboratory Results WBC 5.83 10^3/uL (3.29-11.43) 03/10/25 23:00 RBC 2.99 10^6/uL (3.85-5.65) L 03/10/25 23:00 Hgb 10.50 g/dL (11.27-16.99) L 03/10/25 23:00 Hct 32.3 % (36-47) L 03/10/25 23:00 MCV 108.0 fl (85-98) H 03/10/25 23:00 MCH 35.1 pg (27-33) H 03/10/25 23:00 MCHC 32.5 g/dL (30-55) 03/10/25 23:00 RDW 13.1 % (12.1-15.1) 03/10/25 23:00 Plt Count 180 10^3/cmm (157-399) 03/10/25 23:00 MPV 9.4 fL (7.4-10.4) 03/10/25 23:00 Neut % (Auto) 56.3 % 03/10/25 23:00 Lymph % (Auto) 27.6 % 03/10/25 23:00 Wetzel % (Auto) 10.6 % 03/10/25 23:00 Eos % (Auto) 3.8 % 03/10/25 23:00 Baso % (Auto) 1.4 % 03/10/25 23:00 Neut # (Auto) 3.28 10^3/uL (1.8-7.7) 03/10/25 23:00 Lymph # (Auto) 1.6 10^3/uL (0.8-4.8) 03/10/25 23:00 Wetzel # (Auto) 0.6 10^3/uL (0.2-0.9) 03/10/25 23:00 Eos # (Auto) 0.2 10^3/uL (0.0-0.8) 03/10/25 23:00 Baso # (Auto) 0.1 10^3/uL (0.0-0.1) 03/10/25 23:00 Nucleated RBC % (auto) 0 % 03/10/25 23:00 Nucleated RBCs # 0.0 /100WBC 03/10/25 23:00 Sodium 140 mmol/L (136-145) 03/10/25 23:28 Potassium 4.6 mmol/L (3.5-5.1) 03/10/25 23:28 Chloride 104 mmol/L (98-107) 03/10/25 23:28 Carbon Dioxide 26 mmol/L (22-29) 03/10/25 23:28 Anion Gap 14.6 (5-19) 03/10/25 23:28 BUN 20 mg/dL (8-23) 03/10/25 23:28 Creatinine 1.1 mg/dL (0.5-0.9) H 03/10/25 23:28 GFR Calculation Not Reportable 03/10/25 23:28 Glucose 94 mg/dL (65-115) 03/10/25 23:28 Calculated Osmolality 292 mOsm/kg (285-295) 03/10/25: Calcium 10.2 mg/dL (8.5-10.5) 03/10/25 23:28 Total Bilirubin 0.5 mg/dL (0.15-1.2) 03/10/25 23:28 AST 25 U/L (0-32) 03/10/25 23:28 ALT 15 U/L (0-33) 03/10/25 23:28 Alkaline Phosphatase 81 U/L (35-105) 03/10/25 23:28 Troponin T Baseline 12 ng/L (0-10) H 03/10/25 23:28 Troponin T 120 Minute 6.91 ng/L (0-10) 03/11/25 01:22 Delta Troponin T -5.09 ABS# (0-10) L 03/11/25 01:22 NT-Pro-B Natriuret Pep 2012 pg/mL (0-450) H 03/10/25 23:28 Total Protein 6.7 g/dL (6.6-8.7) 03/10/25 23:28 Albumin 4.2 g/dL (3.5-5.2) 03/10/25 23:28 Globulin 2.5 g/dL (1.3-4.6) 03/10/25 23:28 All radiology interpretation(s) finalized by discharge EKG Data EKG 1: Interpretation: Time?2229?atrial fibrillation, rate of 82, no ST segment elevation or depression, no T wave inversions, intervals within normal limits. QTc = 441 Discharge Plan Discharge Patient Disposition: Home Clinical Impression: Chest pain Condition: Stable Prescriptions: No Action nitroglycerin [Nitrostat] 0.4 mg tablet, sublingual 0.4 mg SUBLINGUAL Q5M PRN (Reason: chest pains) Pepto-Bismol Max St 525 mg/15 mL suspension 525 mg PO Q8H PRN (Reason: Stomach Upset) Rx Instructions: do not exceed 8 doses in a 24 hour period acetaminophen 325 mg capsule 500 mg PO Q8H meclizine 12.5 mg tablet 12.5 mg PO Q6H PRN (Reason: nausea and vomiting ) potassium chloride 20 mEq tablet extended release 20 meq PO BID@0700,1900 mirtazapine 15 mg tablet 15 mg PO DAILY galantamine 8 mg capsule,ext rel. pellets 24 hr See Rx Instructions .ROUTE .COMPLEX Qty: 90 3RF Dose Instruction: TAKE ONE CAPSULE BY MOUTH EVERY DAY WITH BREAKFAST ONLY FOR ALZHEIMERS Rx Instructions: TAKE ONE CAPSULE BY MOUTH EVERY DAY WITH BREAKFAST ONLY FOR ALZHEIMERS metoprolol tartrate 100 mg tablet 100 mg PO BID Qty: 180 3RF furosemide 40 mg tablet 60 mg PO DAILY@0700 Qty: 135 0RF losartan 25 mg tablet 25 mg PO DAILY Qty: 90 3RF memantine 5 mg tablet 5 mg PO BID Qty: 180 3RF spironolactone 25 mg tablet 25 mg PO DAILY Qty: 90 3RF tramadol 50 mg Tablet 50 mg PO Q6H PRN (Reason: Pain) levothyroxine [Euthyrox] 75 mcg tablet 75 mcg PO DAILY@0700 pantoprazole 40 mg tablet,delayed release (DR/EC) 40 mg PO DAILY cetirizine [Zyrtec] 10 mg Tablet 10 mg PO DAILY warfarin 2.5 mg tablet 2.5 mg PO DAILY hydroxyzine HCl 25 mg tablet 25 mg PO TID PRN (Reason: Anxiety) polyethylene glycol 3350 [Miralax] 17 gram/dose Powder 4 g PO DAILY PRN (Reason: Constipation) ipratropium bromide 42 mcg (0.06 %) spray,non-aerosol 2 spray INTRANASAL TID mecobalamin (vitamin B12) [B12 Active] 1,000 mcg Tablet,Chewable 1,000 mcg PO DAILY magnesium hydroxide [Milk of Magnesia] 400 mg/5 mL Suspension 30 ml PO PRN PRN (Reason: bowel movemaent ) amiodarone 200 mg tablet 200 mg PO PRN PRN (Reason: if blood pressure is over 120) Natural Fiber Powder 1 tbsp PO DAILY Discharge Orders: Discharge ED (Routine); Ordered 03/11/25 Ordered By: Marco Antonio Neff Referrals: Danny Marmolejo MD [Primary Care Provider, Family Practice] Patient Instructions: Chest Pain - Noncardiac Activity Restrictions/Additional Instructions: Your EKG and blood test are reassuring showing no evidence of heart attack or other emergency requiring hospitalization at this time. Print Language: [place] Islander Coding Level of Care Code ED Conservation Or Heritage Architect for Indra Carmona
== END 2025-03-11 02:45 | disposition home or self-care (01) ==
PROVIDERS: Emergency Provider Student in an Organized Health Care Education/Training Program; PCP Family Medicine
DX: R07.9 Chest pain, unspecified (principal); Z79.01 Long term (current) use of anticoagulants; E78.5 Hyperlipidemia, unspecified; I25.10 Atherosclerotic heart disease of native coronary artery without angina pectoris; I13.0 Hypertensive heart and chronic kidney disease with heart failure and stage 1 through stage 4 chronic kidney disease, or unspecified chronic kidney disease; N18.2 Chronic kidney disease, stage 2 (mild); I50.9 Heart failure, unspecified
CPT/HCPCS: 36415; 71045; 80053; 83880; 84484; 85025; 93005; 99285; J9999

== ENCOUNTER → 2025-03-18 10:32 | Outpatient (BNVA) | payer MEDICARE, MEDICAID, SELFPAY | PROVIDERS: PCP Family Medicine; Visit Provider Surgery | DX: D64.9 Anemia, unspecified (principal); R19.5 Other fecal abnormalities | CPT/HCPCS: 99204 ==

== ENCOUNTER 2025-04-22 06:05 | Day surgery (SDC) | payer MEDICARE, MEDICAID, SELFPAY ==
[2025-04-22 06:20] VITALS: BMI 27.6
[2025-04-22] MEDS: sodium chloride 0.9% 1,000 ML 15 ML IV (06:33)
[2025-04-22 06:38] VITALS: BP 146/94; PULSE 90; RESP 18; TEMP 36.2; O2SAT 95
--- NOTE | 2025-04-22 06:49 | P.HP_ITS ---
Same Day Surgery H&P Indication for Procedure/HPI DATE OF PROCEDURE: April 22, 2025 CHIEF COMPLAINT/INDICATIONFOR SURGICAL PROCEDURE: iron deficiency anemia PREOP DIAGNOSIS: iron deficiency anemia PLANNED PROCEDURE: Operation Date: 04/22/25 07:00 Proposed Procedures p EGD [id number] G0105 D64.9 R19.5(Not Applicable) - Esau Lewis MD s Colonoscopy(Not Applicable) - Esau Lewis MD Medications/Allergies* Home Medications ?Medication ?Instructions ?Recorded ?Confirmed ?Type nitroglycerin 0.4 mg sublingual 0.4 mg sublingual Q5M PRN chest 11/07/19 04/20/25 History tablet (Nitrostat) pains levothyroxine 75 mcg tablet 75 mcg PO DAILY@0700 hypot hyroidism 11/11/20 04/20/25 History (Euthyrox) tramadol 50 mg tablet 50 mg PO Q6H PRN Pain 04/20/25 History potassium chloride 20 mEq 20 meq PO BID@0700,1900 11/3004/20/25 History tablet,extended release meclizine 12.5 mg tablet 12.5 mg PO Q6H PRN nausea an d 04/19/21 04/20/25 History vomiting bismuth subsalicylate 525 mg/15 mL 525 mg PO Q8H PRN S tomach Upset 08/15/21 04/20/25 History oral suspension (Pepto-Bismol Max St) mirtazapine 15 mg tablet 15 mg PO DAILY 05/21/2403/30 History acetaminophen 325 mg capsule 500 mg PO Q8H Pain 04/20/25 History pantoprazole 40 mg tablet,delayed 40 mg PO DAILY 12/0504/20/25 History release amiodarone 200 mg tablet 200 mg PO PRN PRN if blood 0 01/31/25 04/20/25 History pressure is over 120 cetirizine 10 mg tablet (Zyrtec) 10 mg PO PRN PRN Isaiah rgy Symptoms 01/31/25 04/20/25 History hydroxyzine HCl 25 mg tablet 25 mg PO TID PRN Anxiety 01/31/25 04/20/25 History ipratropium bromide 42 mcg (0.06 2 spray intranasal TI D 01/31/25 04/20/25 History %) nasal spray magnesium hydroxide 400 mg/5 mL 30 ml PO PRN PRN bowel movemaent 01/31/25 04/20/25 History oral suspension (Milk of Magnesia) mecobalamin (vitamin B12) 1,000 1,000 mcg PO DAILY 03/2204/20/25 History mcg chewable tablet (B12 Active) polyethylene glycol 3350 17 4 g PO DAILY PRN Constipat ion 01/31/25 04/20/25 History gram/dose oral powder (Miralax) warfarin 2.5 mg tablet 2.5 mg PO DAILY 01/31/25 History galantamine 8 mg 24 hr 8 mg PO DAILY 04/20/2504/20 History capsule,extended release Allergies/Adverse Reactions Allergy/AdvReac Type Severity Reaction Status Date / Time diltiazem (From Cardizem) Allergy Unknown Verified 04/20/25 11:57 morphine Allergy Unknown Verified 04/20/25 11:57 Current Medications: Generic Name Dose Route Start Last Admin Trade Name Freq PRN Reason Stop Dose Admin Sodium Chloride 1,000 mls @ 15 mls/hr 04/22/25 06:32 04/22/25 06:33 Sodium Chloride 0.9% IV 04/23/25 06:31 15 mls/hr .Q24H PRN Administration COLONOSCOPY FLUIDS Pertinent History/Comorbid Conditions* Medical History (Updated 03/19/25 @ 00:00 by ROBIN Melchor) Chronic anxiety History of iron deficiency anemia Alzheimer disease CKD (chronic kidney disease) stage 2, GFR 60-89 ml/min Hypertension CAD (coronary artery disease) CHF (congestive heart failure) Insomnia Hypothyroid Hyperlipidemia Chronic neck and back pain GERD (gastroesophageal reflux disease) Chronic atrial fibrillation Chronic constipation Surgical History (Updated 01/31/25 @ 10:56 by Alycia Mathews MD) History of heart artery stent Coronary angioplasty/stent placement in 2011 and in 2012 Hx of colonoscopy 2017 H/O esophagogastroduodenoscopy 2011, 2016, and 2017 S/P cholecystectomy H/O section Mitral valve replaced valve replacement 1994 Family History (Updated 11/14/19 @ 09:35 by Sofia Mack LPN) Diabetes CAD (coronary artery disease) Social History Smoking and tobacco/nicotine status: never used tobacco/nicotine Alcohol intake: never Substance/Drug Use: never Housing: Assisted Living Facility Marital status: Single Number of children: 1 Current occupational status: disabled Current gender identity: Female Pertinent Exam Findings alert, oriented x 3, clear to auscultation bilaterally and regular rate & rhythm Recommendations Surgery/Procedure today Coding Level of Care Code Acute Code for [facility] Kristine
--- NOTE | 2025-04-22 07:21 | ANES.PREANE2 ---
Pre-Anesthetic Assessment Height/Weight: Height 1.57 m Weight 68.492 kg Temp Pulse Resp BP Pulse Ox O2 Del Method 97.1 F L 90 18 146/94 95 Room Air 04/22/25 06:38 04/22/25 06:38 04/22/25 06:38 04/22/25 06:38 04/22/25 06:38 04/22/25 06:38 Preop Diagnosis: iron deficiency anemia Operation Date: 04/22/25 07:00 Proposed Procedures p EGD [id number] G0105 D64.9 R19.5(Not Applicable) - Esau Lewis MD s Colonoscopy(Not Applicable) - Esau Lewis MD Was Beta Donavan taken within 24 hours: Yes Last intake: Intake Last Liquid Date 04/21/25 Last Liquid Time 19:30 Last Solid Date 04/20/25 Last Solid Time 16:00 Social No alcohol and No tobacco Exam alert, oriented x 3, clear to auscultation bilaterally and regular rate & rhythm Hx Alzeimers Airway Submandibular: within normal limits Cervical ROM: within normal limits Mallampati: Class II Dentition: false History/ROS No significant history except as noted and No significant complaints Pulmonary Sleep Apnea CV/HEM Atrial Fibrillation, Anemia, Coronary Artery Disease, Congestive Heart Failure and Murmur Stent, MVR None reported Hepatic None reported GI Gastroesophageal Reflux Disease Metabolic Thyroid Disease [facility] Osteoarthritis/DJD Neuropsych Anxiety and Dementia Anesthetic Plan ASA status: 3 Anesthesia: Anesthesia Evaluation and MAC Risk of > 500 ml blood loss (7ml/kg in children): No Medications/Allergies Home Medications ?Medication ?Instructions ?Recorded ?Confirmed ?Last Taken ?Type nitroglycerin 0.4 mg sublingual 0.4 mg sublingual Q5M PRN chest 11/07/19 04/20/25 01/31/25 06:00 History tablet (Nitrostat) pains levothyroxine 75 mcg tablet 75 mcg PO DAILY@0700 hypothyroidism 11/11/20 04/20/25 04/22/25 History (Euthyrox) tramadol 50 mg tablet 50 mg PO Q6H PRN Pain 11/11/20 04/20/25 04/22/25 History potassium chloride 20 mEq 20 meq PO BID@0700,1900 12/22/20 04/20/25 04/21/25 History tablet,extended release meclizine 12.5 mg tablet 12.5 mg PO Q6H PRN nausea and 04/19/21 04/20/25 04/21/25 History vomiting bismuth subsalicylate 525 mg/15 mL 525 mg PO Q8H PRN Stomach Upset 08/15/21 04/20/25 Unknown History oral suspension (Pepto-Bismol Max St) furosemide 40 mg tablet 60 mg (1.5 x 40 mg) PO DAILY@0700 05/18/23 04/20/25 04/21/25 Rx edema #135 tabs losartan 25 mg tablet 25 mg PO DAILY #90 tabs 03/20/24 04/20/25 01/30/25 Rx Held on 12/05/24. Instructions: Doctor's Order memantine 5 mg tablet 5 mg PO BID #180 tabs 05/08/24 04/20/25 04/21/25 Rx mirtazapine 15 mg tablet 15 mg PO DAILY 05/21/24 04/20/25 04/21/25 History acetaminophen 325 mg capsule 500 mg PO Q8H Pain 12/05/24 04/20/25 04/21/25 History metoprolol tartrate 100 mg tablet 100 mg PO BID #180 tabs 12/05/24 04/20/25 04/22/25 Rx pantoprazole 40 mg tablet,delayed 40 mg PO DAILY 12/05/24 04/20/25 04/22/25 History release amiodarone 200 mg tablet 200 mg PO PRN PRN if blood 01/31/25 04/20/25 04/22/25 History pressure is over 120 cetirizine 10 mg tablet (Zyrtec) 10 mg PO PRN PRN Allergy Symptoms 01/31/25 04/20/25 01/30/25 History hydroxyzine HCl 25 mg tablet 25 mg PO TID PRN Anxiety 01/31/25 04/20/25 04/22/25 History ipratropium bromide 42 mcg (0.06 2 spray intranasal TID 01/31/25 04/20/25 01/30/25 History %) nasal spray magnesium hydroxide 400 mg/5 mL 30 ml PO PRN PRN bowel movemaent 01/31/25 04/20/25 Unknown History oral suspension (Milk of Magnesia) mecobalamin (vitamin B12) 1,000 1,000 mcg PO DAILY 01/31/25 04/20/25 04/21/25 History mcg chewable tablet (B12 Active) polyethylene glycol 3350 17 4 g PO DAILY PRN Constipation 01/31/25 04/20/25 04/20/25 History gram/dose oral powder (Miralax) warfarin 2.5 mg tablet 2.5 mg PO DAILY 01/31/25 04/20/25 04/15/25 History spironolactone 25 mg tablet 25 mg PO DAILY #90 tabs 03/03/25 04/20/25 04/21/25 Rx galantamine 8 mg 24 hr 8 mg PO DAILY 04/20/25 04/20/25 04/21/25 History capsule,extended release Allergies Allergy/AdvReac Type Severity Reaction Status Date / Time diltiazem (From Cardizem) Allergy Unknown Verified 04/20/25 11:57 morphine Allergy Unknown Verified 04/20/25 11:57 Current Medications Generic Name Dose Route Start Last Admin Trade Name Freq PRN Reason Stop Dose Admin Sodium Chloride 1,000 mls @ 15 mls/hr 04/22/25 06:32 04/22/25 06:33 Sodium Chloride 0.9% IV 04/23/25 06:31 15 mls/hr .Q24H PRN Administration COLONOSCOPY FLUIDS PFSH Anesthesia Medical History Chronic anxiety History of iron deficiency anemia Alzheimer disease CKD (chronic kidney disease) stage 2, GFR 60-89 ml/min Hypertension CAD (coronary artery disease) CHF (congestive heart failure) Insomnia Hypothyroid Hyperlipidemia Chronic neck and back pain GERD (gastroesophageal reflux disease) Chronic atrial fibrillation Chronic constipation Surgical History History of heart artery stent Coronary angioplasty/stent placement in 2011 and in 2012 Hx of colonoscopy 2017 H/O esophagogastroduodenoscopy 2011, 2016, and 2017 S/P cholecystectomy H/O section Mitral valve replaced valve replacement 1994 Family History Other CAD (coronary artery disease) Diabetes Social History Smoking and tobacco/nicotine status: never used tobacco/nicotine Alcohol intake: never Substance/Drug Use: never Housing: Assisted Living Facility Marital status: Single Number of children: 1 Current occupational status: disabled Current gender identity: Female Female Reproductive History Para: 1 Data Anesthesia Cardiac Studies: Echocardiogram 02/06/24 Sestamibi Stress Test (Cardiology) 08/16/23 Holter Monitor 01/04/22
[2025-04-22 07:43] VITALS: BP 100/64; PULSE 73; RESP 20; TEMP 36.3; O2SAT 97
[2025-04-22 08:01] VITALS: BP 115/68; PULSE 66; RESP 17; O2SAT 98
[2025-04-22 08:10] VITALS: BP 127/77; PULSE 80; RESP 18; O2SAT 97
--- NOTE | 2025-04-22 08:20 | ANE.PACU2 ---
Inpatient post-anesthesia follow up: Airway intact: Yes Vital signs: Temperature 97.3 F Pulse Rate 80 Respiratory Rate 18 Blood Pressure 127/77 Pulse Oximetry 97 Oxygen Delivery Me thod Room Air Oxygen Flow Rate 3 Fraction of Inspir ed Oxygen Hydration adequate: Yes Nausea and vomiting: No Pain level: 1 Mental status: Baseline
== END 2025-04-22 08:20 | disposition home or self-care (01) ==
PROVIDERS: PCP Family Medicine; Visit Provider Surgery
PROC: 0DJ08ZZ Inspection of Upper Intestinal Tract, Via Natural or Artificial Opening Endoscopic (ICD-10-PCS; principal; 2025-04-22 07:00)
PROC: 0DJD8ZZ Inspection of Lower Intestinal Tract, Via Natural or Artificial Opening Endoscopic (ICD-10-PCS; CPT 45378; 2025-04-22 07:00)
DX: K51.40 Inflammatory polyps of colon without complications (principal); D50.9 Iron deficiency anemia, unspecified; D12.5 Benign neoplasm of sigmoid colon; K29.50 Unspecified chronic gastritis without bleeding; D12.8 Benign neoplasm of rectum; K21.00 Gastro-esophageal reflux disease with esophagitis, without bleeding; I13.0 Hypertensive heart and chronic kidney disease with heart failure and stage 1 through stage 4 chronic kidney disease, or unspecified chronic kidney disease; N18.2 Chronic kidney disease, stage 2 (mild); I50.9 Heart failure, unspecified; I25.10 Atherosclerotic heart disease of native coronary artery without angina pectoris; E03.9 Hypothyroidism, unspecified; E78.5 Hyperlipidemia, unspecified; I48.20 Chronic atrial fibrillation, unspecified; G30.9 Alzheimer's disease, unspecified; F02.80 Dementia in other diseases classified elsewhere, unspecified severity, without behavioral disturbance, psychotic disturbance, mood disturbance, and anxiety; K57.30 Diverticulosis of large intestine without perforation or abscess without bleeding; Z79.899 Other long term (current) drug therapy; Z79.01 Long term (current) use of anticoagulants; Z88.5 Allergy status to narcotic agent; Z88.8 Allergy status to other drugs, medicaments and biological substances; Z95.5 Presence of coronary angioplasty implant and graft; Z79.890 Hormone replacement therapy
CPT/HCPCS: 43239; 45380; 45385; 88305; 88342; J2704; J7030; J9999

== ENCOUNTER → 2025-05-05 10:50 | Outpatient (BNVA) | payer MEDICARE, MEDICAID, SELFPAY | PROVIDERS: PCP Family Medicine; Visit Provider Surgery | DX: Z09 Encounter for follow-up examination after completed treatment for conditions other than malignant neoplasm (principal) | CPT/HCPCS: 99213 ==

== ENCOUNTER → 2025-05-06 09:38 | Outpatient (BNVA) | payer MEDICARE, MEDICAID, SELFPAY | PROVIDERS: PCP Family Medicine; Visit Provider Specialist | DX: G30.9 Alzheimer's disease, unspecified (principal); F02.80 Dementia in other diseases classified elsewhere, unspecified severity, without behavioral disturbance, psychotic disturbance, mood disturbance, and anxiety; Q04.8 Other specified congenital malformations of brain; Z95.2 Presence of prosthetic heart valve; M41.20 Other idiopathic scoliosis, site unspecified | CPT/HCPCS: 99213 ==

== ENCOUNTER 2025-05-25 12:05 | Outpatient (RCR) | payer MEDICARE, MEDICAID, SELFPAY | END 2025-05-28 23:59 | disposition home or self-care (01) | LOC: SPT 12:05 | PROVIDERS: PCP Family Medicine; Visit Provider Specialist | DX: M41.20 Other idiopathic scoliosis, site unspecified (principal); M54.59 Other low back pain; R26.81 Unsteadiness on feet; R26.89 Other abnormalities of gait and mobility | CPT/HCPCS: 97162 ==

== ENCOUNTER 2025-05-27 10:06 | Emergency (ER) | payer MEDICARE, MEDICAID, SELFPAY ==
--- OUTSIDE RECORDS SUMMARY | 2025-05-27 10:16 | XMS_ITS | Encounter Summary ---
Author Organization [facility] Address [address] [place] [address] Care Team Providers Care Package Crimper Name Role Phone Rico Muñiz MD, Sharan Jaime Primary Care Provider Encounter Details Date Type Department Care Team (Latest Contact Info) Description 06/24/2002 Outpatient Historical [facility] Int [facility] [phone] [place] [address] Serge Arrington MD [address] [place] [address] Mitral valve disorder (Primary Dx); CORONARY ATHEROSCLER UNSPEC VESSEL; HYPERTENSION NOS; HYPERLIPIDEMIA NEC/NOS Social History Tobacco Use Types Packs/Day Years Used Date Smoking Tobacco: Never Assessed Comments Unknown Sex and Gender Information Value Date Recorded Sex Assigned at Not on file 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
--- OUTSIDE RECORDS SUMMARY | 2025-05-27 10:16 | XMS_ITS | Encounter Summary ---
Author Organization [facility] Address [address] [place] [address] Care Team Providers Care Waterproof Coating Machine Tender Name Role Phone Rico Muñiz MD, Sharan Jaime Primary Care Provider Encounter Details Date Type Department Care Team (Latest Contact Info) Description 02/25/1999 Outpatient Historical [facility] Sharan Gómez Jr., MD [address] [place] [address] Dietary surveil/admissions counselor (Primary Dx) Social History Tobacco Use Types Packs/Day Years Used Date Smoking Tobacco: Never Assessed Comments Unknown Sex and Gender Information Value Date Recorded Sex Assigned at Not on file 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
--- OUTSIDE RECORDS SUMMARY | 2025-05-27 10:16 | XMS_ITS | Encounter Summary ---
Author Organization [facility] Address [address] [place] [address] Care Team Providers Care Technical Specialist Cytology Name Role Phone Rico Muñiz MD, Sharan Jaime Primary Care Provider Encounter Details Date Type Department Care Team (Latest Contact Info) Description 06/24/2001 Outpatient Historical [facility] Imaging Services-Faisal Lopez [place] [address] [place] [address] Serge Arrington MD [address] [place] [address] Unspecified congenital anomaly of heart (Primary Dx) Social History Tobacco Use Types Packs/Day Years Used Date Smoking Tobacco: Never Assessed Comments Unknown Sex and Gender Information Value Date Recorded Sex Assigned at Not on file Legal Sex Female 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
--- OUTSIDE RECORDS SUMMARY | 2025-05-27 10:16 | XMS_ITS | Encounter Summary ---
Author Organization [facility] Address [address] [place] [address] Care Team Providers Care Hanger Off Name Role Phone Rico Muñiz MD, Sharan Jaime Primary Care Provider Encounter Details Date Type Department Care Team (Latest Contact Info) Description 06/28/2001 Outpatient Historical [facility] Sharan Gómez Jr., MD [address] [place] [address] Esophageal reflux (Primary Dx); Heart valve replaced by other means Social History Tobacco Use Types Packs/Day Years Used Date Smoking Tobacco: Never Assessed Comments Unknown Sex and Gender Information Value Date Recorded Sex Assigned at Not on file Legal Sex Female 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
--- OUTSIDE RECORDS SUMMARY | 2025-05-27 10:16 | XMS_ITS | Encounter Summary ---
Author Organization [facility] Address [address] [place] [address] Care Team Providers Care Application Administrator Name Role Phone Rico Muñiz MD, Sharan Jaime Primary Care Provider Encounter Details Date Type Department Care Team (Latest Contact Info) Description 10/27/1998 Outpatient Historical [facility] Sharan Gómez Jr., MD [address] [place] [address] Unspecified essential hypertension (Primary Dx); Chest pain, unspecified; Pneumonia, organism unspecified(486) Social History Tobacco Use Types Packs/Day Years Used Date Smoking Tobacco: Never Assessed Comments Unknown Sex and Gender Information Value Date Recorded Sex Assigned at Not on file Legal Sex Female 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
--- OUTSIDE RECORDS SUMMARY | 2025-05-27 10:16 | XMS_ITS | Encounter Summary ---
Author Organization [facility] Address [address] [facility] Attn: [place] [address] Care Team Providers Care Well Tester Name Role Phone Rico Muñiz MD, Sharan Jaime Primary Care Provider Encounter Details Date Type Department Care Team (Late st Contact Info) Description 07/03/2002 Outpatient Historical Екатерина Malone MD [address] [place] [address] Social History Tobacco Use Types Packs/Day Years Used Date Smoking Tobacco: Never Assessed Comments Unknown Sex and Gender Information Value Date Recorded Sex Assigned at Not on file Legal 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
--- OUTSIDE RECORDS SUMMARY | 2025-05-27 10:16 | XMS_ITS | Encounter Summary ---
Author Organization [facility] Address [address] [place] [address] Care Team Providers Care Inspector Paper Products Name Role Phone Rico Muñiz MD, Sharan Jaime Primary Care Provider Encounter Details Date Type Department Care Team (Latest Contact Info) Description 06/26/[address] 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
--- OUTSIDE RECORDS SUMMARY | 2025-05-27 10:16 | XMS_ITS | Encounter Summary ---
Author Organization [facility] Address [address] [place] [address] Care Team Providers Care Chief Of Production Name Role Phone Rico Muñiz MD, Sharan Jaime Primary Care Provider Encounter Details Date Type Department Care Team (Latest Contact Info) Description 07/04/2005 Outpatient Historical [facility] [address] [place] [address] Serge Arrington MD [address] [place] [address] ROUTINE SUPERVISOR ALUM PLANT EXAMINATION (Primary Dx) Social History Tobacco Use Types Packs/Day Years Used Date Smoking Tobacco: Never Assessed Comments Unknown Sex and Gender Information Value Date Recorded Sex Assigned at Not on file Legal Sex Female 5:42 AM OIL ANALYST Gender Identity Not on file Sexual Orientation Not on file documented as of this encounter Plan of Treatment Not on file documented as of this encounter Visit Diagnoses Diagnosis Routine gynecological examination- Primary documented in this encounter Care Teams Chief Of Production Relationship Specialty Start Date End Date Sharan Gómez Jr., MD [address] [place] [address] PCP - General 08/10/05 documented as of this encounter
--- OUTSIDE RECORDS SUMMARY | 2025-05-27 10:16 | XMS_ITS | Encounter Summary ---
Author Organization [facility] Address [address] [place] [address] Care Team Providers Care Staff Pharmacist Name Role Phone Rico Muñiz MD, Sharan Jaime Primary Care Provider Encounter Details Date Type Department Care Team (Latest Contact Info) Description 02/04/2007 Outpatient Historical [facility] Int Luis AFaisal Lopez [address] [place] [address] Serge Arrington MD [address] [place] [address] Unspecified Essential Hypertension (Primary Dx); Mitral Valve Disorder; Other and Unspecified Hyperlipidemia Social History Tobacco Use Types Packs/Day Years Used Date Smoking Tobacco: Never Assessed Comments Unknown Sex and Gender Information Value Date Recorded Sex Assigned at Not on file Legal Sex Female 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
--- OUTSIDE RECORDS SUMMARY | 2025-05-27 10:16 | XMS_ITS | Encounter Summary ---
Author Organization [facility] Address [address] [place] [address] Care Team Providers Care Personal Injury Litigation Paralegal Name Role Phone Rico Muñiz MD, Sharan Jaime Primary Care Provider Encounter Details Date Type Department Care Team (Latest Contact Info) Description 06/29/2004 Outpatient Historical [facility] Int Luis AFaisal Lopez [address] [place] [address] Serge Arrington MD [address] [place] [address] Mitral valve disorder (Primary Dx); HYPERTENSION NOS; HYPERLIPIDEMIA NEC/NOS; OSTEOPOROSIS NOS Social History Tobacco Use Types Packs/Day Years Used Date Smoking Tobacco: Never Assessed Comments Unknown Sex and Gender Information Value Date Recorded Sex Assigned at Not on file Legal 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
--- OUTSIDE RECORDS SUMMARY | 2025-05-27 10:16 | XMS_ITS | Encounter Summary ---
Author Organization [facility] Address [address] [place] [address] Care Team Providers Care Regional Education Coordinator Name Role Phone Rico Muñiz MD, Sharan Jaime Primary Care Provider Encounter Details Date Type Department Care Team (Latest Contact Info) Description 08/05/2001 Outpatient Historical [facility] Sharan Gómez Jr., MD [address] [place] [address] Generalized anxiety disorder (Primary Dx); Hypopotassemia Social History Tobacco Use Types Packs/Day Years Used Date Smoking Tobacco: Never Assessed Comments Unknown Sex and Gender Information Value Date Recorded Sex Assigned at Not on file Legal Sex Female 5:42 AM 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
--- OUTSIDE RECORDS SUMMARY | 2025-05-27 10:16 | XMS_ITS | Encounter Summary ---
Author Organization [facility] Address [address] [place] [address] Care Team Providers Care Automobile Repossessor Name Role Phone Rico Muñiz MD, Sharan Jaime Primary Care Provider Encounter Details Date Type Department Care Team (Latest Contact Info) Description 06/26/2003 Outpatient Historical [facility] [address] [place] [address] Serge Arrington MD [address] [place] [address] Mitral valve disorder (Primary Dx); HYPERTENSION NOS; HYPERLIPIDEMIA NEC/NOS; VACCINE FOR STREP PNEUMONIAE Social History Tobacco Use Types Packs/Day Years Used Date Smoking Tobacco: Never Assessed Comments Unknown Sex and Gender Information Value Date Recorded Sex Assigned at Not on file Legal Sex Female 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 Gender Identity Not on file Sexual Orientation Not on file documented as of this encounter Plan of Treatment Not on file documented as of this encounter Visit Diagnoses Diagnosis Mitral valve disorder- Primary Mitral valve disorders Unspecified essential hypertension Other and unspecified hyperlipidemia Need for prophylactic vaccination against Streptococcus pneumoniae (pneumococcus) Need for prophylactic vaccination against streptococcus pneumoniae (pneumococcus) documented in this encounter Care Teams Automobile Repossessor Relationship Specialty Start Date End Date Sharan Gómez Jr., MD [address] [place] [address] PCP - General 08/10/05 documented as of this encounter
--- OUTSIDE RECORDS SUMMARY | 2025-05-27 10:16 | XMS_ITS | Encounter Summary ---
Author Organization [facility] Address [address] [place] [address] Care Team Providers Care Manager Research Development Name Role Phone Rico Muñiz MD, Sharan Jaime Primary Care Provider Encounter Details Date Type Department Care Team (Latest Contact Info) Description 08/06/2006 Outpatient Historical [facility] Int Luis AFaisal Lpoez [address] [place] [address] Serge Arrington MD [address] [place] [address] Mitral Valve Disorder (Primary Dx); Other and Unspecified Hyperlipidemia; Screening for Malignant Neoplasm of the Cervix Social History Tobacco Use Types Packs/Day Years Used Date Smoking Tobacco: Never Assessed Comments Unknown Sex and Gender Information Value Date Recorded Sex Assigned at Not on file Legal Sex Female 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
--- OUTSIDE RECORDS SUMMARY | 2025-05-27 10:16 | XMS_ITS | Encounter Summary ---
Author Organization [facility] Address [address] [place] [address] Care Team Providers Care Department Of Natural Resources Officer Name Role Phone Rico Muñiz MD, Sharan Jaime Primary Care Provider Encounter Details Date Type Department Care Team (Latest Contact Info) Description 01/14/1999 Outpatient Historical [facility] Sharan Gómez Jr., MD [address] [place] [address] Spasm of muscle (Primary Dx) Social History Tobacco Use Types Packs/Day Years Used Date Smoking Tobacco: Never Assessed Comments Unknown Sex and Gender Information Value Date Recorded Sex Assigned at Not on file Legal Sex Female 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
--- OUTSIDE RECORDS SUMMARY | 2025-05-27 10:16 | XMS_ITS | Encounter Summary ---
Author Organization [facility] Address [address] [place] [address] Care Team Providers Care Clothing Examiner Name Role Phone Rico Muñiz MD, Sharan Jaime Primary Care Provider Encounter Details Date Type Department Care Team (Latest Contact Info) Description 08/06/2006 Outpatient Historical [facility] Int Luis AFaisal Lopez [address] [place] [address] Serge Arrington MD [address] [place] [address] Routine Gynecological Examination (Primary Dx) Social History Tobacco Use Types Packs/Day Years Used Date Smoking Tobacco: Never Assessed Comments Unknown Sex and Gender Information Value Date Recorded Sex Assigned at Not on file Legal Sex Female 5:42 AM PLACEMENT COORDINATOR Gender Identity Not on file Sexual Orientation Not on file documented as of this encounter Plan of Treatment Not on file documented as of this encounter Visit Diagnoses Diagnosis Routine gynecological examination- Primary documented in this encounter Care Teams Clothing Examiner Relationship Specialty Start Date End Date Sharan Gómez Jr., MD [address] [place] [address] PCP - General 08/10/05 documented as of this encounter
--- OUTSIDE RECORDS SUMMARY | 2025-05-27 10:16 | XMS_ITS | Encounter Summary ---
Author Organization [facility] Address [address] [facility] Attn: [place] [address] Care Team Providers Care Spiritual Minister Name Role Phone Rico Muñiz MD, Sharan Jaime Primary Care Provider Encounter Details Date Type Department Care Team (Late st Contact Info) Description 07/23/2002 Outpatient Historical Екатерина Malone MD [address] [place] [address] Social History Tobacco Use Types Packs/Day Years Used Date Smoking Tobacco: Never Assessed Comments Unknown Sex and Gender Information Value Date Recorded Sex Assigned at Not on file Legal 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
--- OUTSIDE RECORDS SUMMARY | 2025-05-27 10:16 | XMS_ITS | Encounter Summary ---
Author Organization [facility] Address [address] [place] [address] Care Team Providers Care Asset Manager Name Role Phone Rico Muñiz MD, Sharan Jaime Primary Care Provider Encounter Details Date Type Department Care Team (Latest Contact Info) Description 06/24/2001 Outpatient Historical [facility] Int Luis AFaisal Lopez [address] [place] [address] Serge Arrington MD [address] [place] [address] Mitral valve disorder (Primary Dx); Unspecified essential hypertension; Other and unspecified hyperlipidemia; Dizziness and giddiness Social History Tobacco Use Types Packs/Day Years Used Date Smoking Tobacco: Never Assessed Comments Unknown Sex and Gender Information Value Date Recorded Sex Assigned at Not on file Legal Sex Female 5:42 AM MONUMENT CARVER Gender Identity Not on file Sexual Orientation Not on file documented as of this encounter Plan of Treatment Not on file documented as of this encounter Visit Diagnoses Diagnosis Mitral valve disorder- Primary Mitral valve disorders Unspecified essential hypertension Other and unspecified hyperlipidemia Dizziness and giddiness documented in this encounter Care Teams Asset Manager Relationship Specialty Start Date End Date Sharan Gómez Jr., MD [address] [place] [address] PCP - General 08/10/05 documented as of this encounter
--- OUTSIDE RECORDS SUMMARY | 2025-05-27 10:16 | XMS_ITS | Encounter Summary ---
Author Organization [facility] Address [address] [place] [address] Care Team Providers Care Enterprise Systems Architect Name Role Phone Rico Muñiz MD, Sharan Jaime Primary Care Provider Encounter Details Date Type Department Care Team (Latest Contact Info) Description 11/05/2006 Outpatient Historical [facility] Int Luis AFaisal Lopez [address] [place] [address] Serge Arrington MD [address] [place] [address] Mitral Valve Disorder (Primary Dx); Unspecified Essential Hypertension; Other and Unspecified Hyperlipidemia Social History Tobacco Use Types Packs/Day Years Used Date Smoking Tobacco: Never Assessed Comments Unknown Sex and Gender Information Value Date Recorded Sex Assigned at Not on file Legal Sex Female 5:42 AM COUNTERINTELLIGENCE/HUMINT SPECIALIST Gender Identity Not on file Sexual Orientation Not on file documented as of this encounter Plan of Treatment Not on file documented as of this encounter Visit Diagnoses Diagnosis Mitral valve disorder- Primary Mitral valve disorders Unspecified essential hypertension Other and unspecified hyperlipidemia documented in this encounter Care Teams Enterprise Systems Architect Relationship Specialty Start Date End Date Sharan Gómez Jr., MD [address] [place] [address] PCP - General 08/10/05 documented as of this encounter
--- OUTSIDE RECORDS SUMMARY | 2025-05-27 10:16 | XMS_ITS | Encounter Summary ---
Author Organization [facility] Address [address] [place] [address] Care Team Providers Care Dietist Name Role Phone Rico Muñiz MD, Sharan Jaime Primary Care Provider Encounter Details Date Type Department Care Team (Latest Contact Info) Description 11/04/1998 Outpatient Historical [facility] Sharan Gómez Jr., MD [address] [place] [address] Acute upper respiratory infections of unspecified site (Primary Dx); Screening for other and unspecified respiratory condition; Other dyspnea and respiratory abnormality; joint terminal attack controller (current) use of anticoagulants Social History Tobacco Use Types Packs/Day Years Used Date Smoking Tobacco: Never Assessed Comments Unknown Sex and Gender Information Value Date Recorded Sex Assigned at Not on file Legal Sex Female 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 Gender Identity Not on file Sexual Orientation Not on file documented as of this encounter Plan of Treatment Not on file documented as of this encounter Visit Diagnoses Diagnosis Acute upper respiratory infections of unspecified site- Primary Screening for other and unspecified respiratory condition Other dyspnea and respiratory abnormality alf (current) use of anticoagulants Long-term (current) use of anticoagulants documented in this encounter Care Teams Dietist Relationship Specialty Start Date End Date Sharan Gómez Jr., MD [address] [place] [address] PCP - General 08/10/05 documented as of this encounter
--- OUTSIDE RECORDS SUMMARY | 2025-05-27 10:16 | XMS_ITS | Encounter Summary ---
Author Organization [facility] Address [address] [place] [address] Care Team Providers Care Rug Cutter Name Role Phone Rico Muñiz MD, Sharan Jaime Primary Care Provider Encounter Details Date Type Department Care Team (Latest Contact Info) Description 09/15/1998 Outpatient Historical [facility] Sharan Gómez Jr., MD [address] [place] [address] Unspecified essential hypertension (Primary Dx); Esophagitis, unspecified; director long term care (current) use of anticoagulants; Need vaccination-viral disease Social History Tobacco Use Types Packs/Day Years Used Date Smoking Tobacco: Never Assessed Comments Unknown Sex and Gender Information Value Date Recorded Sex Assigned at Not on file Legal Sex Female 5:42 AM RISK CONSULTING TREASURY DIRECTOR Gender Identity Not on file Sexual Orientation Not on file documented as of this encounter Plan of Treatment Not on file documented as of this encounter Visit Diagnoses Diagnosis Unspecified essential hypertension- Primary Esophagitis, unspecified director long term care (current) use of anticoagulants Long-term (current) use of anticoagulants Need vaccination-viral disease Need for prophylactic vaccination and inoculation against other viral diseases documented in this encounter Care Teams Rug Cutter Relationship Specialty Start Date End Date Sharan Gómez Jr., MD [address] [place] [id number] PCP - General 08/10/05 documented as of this encounter
--- OUTSIDE RECORDS SUMMARY | 2025-05-27 10:16 | XMS_ITS | Encounter Summary ---
Author Organization [facility] Address [address] [facility] Attn: Epic Prelude ADT [place] [address] Care Team Providers Care Material Stockkeeper Yard Name Role Phone Rico Muñiz MD, Sharan Jaime Primary Care Provider Encounter Details Date Type Department Care Team (Late st Contact Info) Description 07/15/2002 Outpatient Historical Patrick Olsen MD NO ADDRESS ON FILE Social History Tobacco Use Types Packs/Day Years Used Date Smoking Tobacco: Never Assessed Comments Unknown Sex and Gender Information Value Date Recorded Sex Assigned at Not on file Legal Sex Female 5:42 AM TRAINING REPRESENTATIVE Gender Identity Not on file Sexual Orientation Not on file documented as of this encounter Plan of Treatment Not on file documented as of this encounter Visit Diagnoses Not on filedocumented in this encounter Care Teams Material Stockkeeper Yard Relationship Specialty Start Date End Date Sharan Gómez Jr., MD [address] [place] [address] PCP - General 08/10/05 documented as of this encounter
--- OUTSIDE RECORDS SUMMARY | 2025-05-27 10:16 | XMS_ITS | Encounter Summary ---
Author Organization [facility] Address [address] [place] [address] Care Team Providers Care Oil Burner Mechanic Name Role Phone Rico Muñiz MD, Sharan Jaime Primary Care Provider Encounter Details Date Type Department Care Team (Latest Contact Info) Description 10/15/1998 Outpatient Historical [facility] Sharan Gómez Jr., MD [address] [place] [address] Unspecified essential hypertension (Primary Dx); Hypopotassemia; shelter (current) use of anticoagulants Social History Tobacco Use Types Packs/Day Years Used Date Smoking Tobacco: Never Assessed Comments Unknown Sex and Gender Information Value Date Recorded Sex Assigned at Not on file Legal Sex Female 5:42 AM CHAMPION OF SUSTAINABLE DESIGN Gender Identity Not on file Sexual Orientation Not on file documented as of this encounter Plan of Treatment Not on file documented as of this encounter Visit Diagnoses Diagnosis Unspecified essential hypertension- Primary Hypopotassemia shelter (current) use of anticoagulants Long-term (current) use of anticoagulants documented in this encounter Care Teams Oil Burner Mechanic Relationship Specialty Start Date End Date Sharan Gómez Jr., MD [address] [place] [address] PCP - General 08/10/05 documented as of this encounter
--- OUTSIDE RECORDS SUMMARY | 2025-05-27 10:16 | XMS_ITS | Encounter Summary ---
Author Organization [facility] Address [address] [facility] Attn: [place] [address] Care Team Providers Care Maintenance Electrician Name Role Phone Rico Muñiz MD, Sharan Jaime Primary Care Provider Encounter Details Date Type Department Care Team (Late st Contact Info) Description 05/16/2001 Outpatient Historical Sharan Gómez Jr., MD [address] [place] [address] Social History Tobacco Use Types Packs/Day Years Used Date Smoking Tobacco: Never Assessed Comments Unknown Sex and Gender Information Value Date Recorded Sex Assigned at Not on file Legal Sex Female 5:42 AM SHIPYARD PAINTER APPRENTICE Gender Identity Not on file Sexual Orientation Not on file documented as of this encounter Plan of Treatment Not on file documented as of this encounter Visit Diagnoses Not on filedocumented in this encounter Care Teams Maintenance Electrician Relationship Specialty Start Date End Date Sharan Gómez Jr., MD [address] [place] [address] PCP - General 08/10/05 documented as of this encounter
--- OUTSIDE RECORDS SUMMARY | 2025-05-27 10:16 | XMS_ITS | Encounter Summary ---
Author Organization [facility] Address [address] [place] [address] Care Team Providers Care Rn Progressive Care Name Role Phone Rico Muñiz MD, Sharan Jaime Primary Care Provider Encounter Details Date Type Department Care Team (Late st Contact Info) Description 10/15/2020 Lab Requisition [facility] [address] [place] [address] Paulina Peterson MD [address] [place] [address] Social History Tobacco Use Types Packs/Day Years Used Date Smoking Tobacco: Never Assessed Comments Unknown Sex and Gender Information Value Date Recorded Sex Assigned at Not on file Legal Sex Female 5:42 AM BULLET LUBRICATING 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 Gender Identity Not on file Sexual Orientation Not on file documented as of this encounter Plan of Treatment Not on file documented as of this encounter Procedures Procedure Name Priority Date/Time Associated Diagnosis Comments PROTIME-INR Routine 10/15/2020 4:40 AM BULLET LUBRICATING 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 documented in this encounter Results * (ABNORMAL) PROTIME-INR (10/15/2020 4:40 AM BULLET LUBRICATING 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) PROTIME 46.6(H) 11.9 - 15.5 Seconds 10/15/2020 4:26 PM BULLET LUBRICATING 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 [facility] INR 4.9(H) 0.8 - 1.2 10/15/2020 4:26 PM BULLET LUBRICATING 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 [facility] Blood Collection / Unknown 10/15/2020 4:40 AM BULLET LUBRICATING 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 10/15/2020 4:01 PM BULLET LUBRICATING 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 Narrative [facility] - 10/15/2020 4:26 PM BULLET LUBRICATING 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 Expected Values for INR: DVT/PE Goal INR 2.5; range 2.0 - 3.0 Valve Replacement Tissue Goal INR 2.5; range 2.0 - 3.0 Valve Replacement Mechanical Goal INR 3.0; range 2.5 - 3.5 POST-NE Goal INR 2.5; range 2.0 - 3.0 or Goal INR 3.0; range 2.5 - 3.5 Atrial Fibrillation Goal INR 2.5; range 2.0 - 3.0 Ischemic Stroke Goal INR 2.5; range 2.0 - 3.0 For additional information see Guidelines for Anticoagulation available from the pharmacy [facility] Paulina Peterson MD HEMATOLOGY ORDERABLES Maame smart Result [facility] [address] [place] [address] documented in this encounter Visit Diagnoses Not on filedocumented in this encounter Care Teams Rn Progressive Care Relationship Specialty Start Date End Date Sharan Gómez Jr., MD [address] [place] [address] PCP - General 08/10/05 documented as of this encounter
--- OUTSIDE RECORDS SUMMARY | 2025-05-27 10:16 | XMS_ITS | Encounter Summary ---
Author Organization [facility] Address [address] [place] [address] Care Team Providers Care Woodworking Belt Sander Name Role Phone Rico Muñiz MD, Sharan Jaime Primary Care Provider Encounter Details Date Type Department Care Team (Latest Contact Info) Description 11/05/2003 Outpatient Historical [facility] [address] [place] [address] Екатерина Malone MD [address] [place] [address] HYPERLIPIDEMIA NEC/NOS (Primary Dx) Social History Tobacco Use Types Packs/Day Years Used Date Smoking Tobacco: Never Assessed Comments Unknown Sex and Gender Information Value Date Recorded Sex Assigned at Not on file Legal Sex Female 5:42 AM SHIPPING AND RECEIVING ASSOCIATE Gender Identity Not on file Sexual Orientation Not on file documented as of this encounter Plan of Treatment Not on file documented as of this encounter Visit Diagnoses Diagnosis Other and unspecified hyperlipidemia- Primary documented in this encounter Care Teams Woodworking Belt Sander Relationship Specialty Start Date End Date Sharan Gómez Jr., MD [address] [place] [address] PCP - General 08/10/05 documented as of this encounter
--- OUTSIDE RECORDS SUMMARY | 2025-05-27 10:16 | XMS_ITS | Encounter Summary ---
Author Organization [facility] Address [address] [place] [address] Care Team Providers Care Ornamental Metal Erector Apprentice Name Role Phone Rico Muñiz MD, Sharan Jaime Primary Care Provider Encounter Details Date Type Department Care Team (Latest Contact Info) Description 07/06/2003 Outpatient Historical [facility] [address] [place] [address] Екатерина Malone MD [address] [place] [address] AFTERCARE INTERMEDIATE USE MEDICATN (Primary Dx) Social History Tobacco Use Types Packs/Day Years Used Date Smoking Tobacco: Never Assessed Comments Unknown Sex and Gender Information Value Date Recorded Sex Assigned at Not on file Legal Sex Female 5:42 AM MASTER OCEAN Gender Identity Not on file Sexual Orientation Not on file documented as of this encounter Plan of Treatment Not on file documented as of this encounter Visit Diagnoses Diagnosis Encounter for long-term (current) use of other medications- Primary documented in this encounter Care Teams Ornamental Metal Erector Apprentice Relationship Specialty Start Date End Date Sharan Gómez Jr., MD [address] [place] [address] PCP - General 08/10/05 documented as of this encounter
--- OUTSIDE RECORDS SUMMARY | 2025-05-27 10:16 | XMS_ITS | Encounter Summary ---
Author Organization [facility] Address [address] [facility] Attn: [place] [address] Care Team Providers Care Tooling Specialist Name Role Phone Rico Muñiz MD, Sharan Jaime Primary Care Provider Encounter Details Date Type Department Care Team (Late st Contact Info) Description 08/05/2001 Outpatient Historical Sharan Gómez Jr., MD [address] [place] [address] Social History Tobacco Use Types Packs/Day Years Used Date Smoking Tobacco: Never Assessed Comments Unknown Sex and Gender Information Value Date Recorded Sex Assigned at Not on file Legal Sex Female 5:42 AM SHEET METAL DUCT INSTALLER HELPER Gender Identity Not on file Sexual Orientation Not on file documented as of this encounter Plan of Treatment Not on file documented as of this encounter Visit Diagnoses Not on filedocumented in this encounter Care Teams Tooling Specialist Relationship Specialty Start Date End Date Sharan Gómez Jr., MD [address] [place] [address] PCP - General 08/10/05 documented as of this encounter
--- OUTSIDE RECORDS SUMMARY | 2025-05-27 10:16 | XMS_ITS | Encounter Summary ---
Author Organization [facility] Address [address] [place] [address] Care Team Providers Care Microsoft Dynamics Consultant Name Role Phone Rico Muñiz MD, Sharan Jaime Primary Care Provider Encounter Details Date Type Department Care Team (Latest Contact Info) Description 07/04/2005 Outpatient Historical [facility] [place] [address] [place] [address] Serge Arrington MD [address] [place] [address] HYPERTENSION NOS (Primary Dx) Social History Tobacco Use Types Packs/Day Years Used Date Smoking Tobacco: Never Assessed Comments Unknown Sex and Gender Information Value Date Recorded Sex Assigned at Not on file Legal Sex Female 5:42 AM AIR/OCEAN EXPORT CLERK Gender Identity Not on file Sexual Orientation Not on file documented as of this encounter Plan of Treatment Not on file documented as of this encounter Visit Diagnoses Diagnosis Unspecified essential hypertension- Primary documented in this encounter Care Teams Microsoft Dynamics Consultant Relationship Specialty Start Date End Date Sharan Gómez Jr., MD [address] [place] [address] PCP - General 08/10/05 documented as of this encounter
--- OUTSIDE RECORDS SUMMARY | 2025-05-27 10:16 | XMS_ITS | Encounter Summary ---
Author Organization [facility] Address [address] [place] [address] Care Team Providers Care Wellness Specialist Name Role Phone Rico Muñiz MD, Sharan Jaime Primary Care Provider Encounter Details Date Type Department Care Team (Latest Contact Info) Description 07/15/2002 Outpatient Historical [facility] Rafael Lopez Michelle [address] [place] [address] Patrick Olsen MD NO ADDRESS ON FILE POSTMENOPAUSAL BLEEDING (Primary Dx); DYSPAREUNIA; SCREENING MAL NEOP-CERVIX Social History Tobacco Use Types Packs/Day Years Used Date Smoking Tobacco: Never Assessed Comments Unknown Sex and Gender Information Value Date Recorded Sex Assigned at Not on file Legal Sex Female 5:42 AM SHOP DIRECTOR Gender Identity Not on file Sexual Orientation Not on file documented as of this encounter Plan of Treatment Not on file documented as of this encounter Visit Diagnoses Diagnosis Postmenopausal bleeding- Primary Dyspareunia Screening for malignant neoplasm of the cervix documented in this encounter Care Teams Wellness Specialist Relationship Specialty Start Date End Date Sharan Gómez Jr., MD [address] [place] [address] PCP - General 08/10/05 documented as of this encounter
--- OUTSIDE RECORDS SUMMARY | 2025-05-27 10:16 | XMS_ITS | Encounter Summary ---
Author Organization [facility] Address [address] [place] [address] Care Team Providers Care Software Manager Name Role Phone Rico Muñiz MD, Sharan Jaime Primary Care Provider Encounter Details Date Type Department Care Team (Latest Contact Info) Description 05/16/2001 Outpatient Historical [facility] Sharan Gómez Jr., MD [address] [place] [address] Unspecified essential hypertension (Primary Dx); intermediate (current) use of anticoagulants Social History Tobacco Use Types Packs/Day Years Used Date Smoking Tobacco: Never Assessed Comments Unknown Sex and Gender Information Value Date Recorded Sex Assigned at Not on file Legal Sex Female 5:42 AM FINANCIAL SERVICES AGENT Gender Identity Not on file Sexual Orientation Not on file documented as of this encounter Plan of Treatment Not on file documented as of this encounter Visit Diagnoses Diagnosis Unspecified essential hypertension- Primary 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
--- OUTSIDE RECORDS SUMMARY | 2025-05-27 10:16 | XMS_ITS | Encounter Summary ---
Author Organization [facility] Address [address] [place] [address] Care Team Providers Care Public Relations Director Name Role Phone Rico Muñiz MD, Sharan Jaime Primary Care Provider Encounter Details Date Type Department Care Team (Latest Contact Info) Description 02/16/1999 Outpatient Historical [facility] Sharan Gómez Jr., MD [address] [place] [address] Unspecified essential hypertension (Primary Dx); jail (current) use of anticoagulants Social History Tobacco Use Types Packs/Day Years Used Date Smoking Tobacco: Never Assessed Comments Unknown Sex and Gender Information Value Date Recorded Sex Assigned at Not on file Legal Sex Female 5:42 AM ICT SYSTEMS TEST ENGINEER Gender Identity Not on file Sexual Orientation Not on file documented as of this encounter Plan of Treatment Not on file documented as of this encounter Visit Diagnoses Diagnosis Unspecified essential hypertension- Primary oysterman (current) use of anticoagulants Long-term (current) use of anticoagulants documented in this encounter Care Teams Public Relations Director Relationship Specialty Start Date End Date Sharan Gómez Jr., MD [address] [place] [address] PCP - General 08/10/05 documented as of this encounter
--- OUTSIDE RECORDS SUMMARY | 2025-05-27 10:16 | XMS_ITS | Encounter Summary ---
Author Organization [facility] Address [address] [place] [address] Care Team Providers Care Guard Sergeant Name Role Phone Rico Muñiz MD, Sharan Jaime Primary Care Provider Encounter Details Date Type Department Care Team (Latest Contact Info) Description 03/09/2003 Outpatient Historical [facility] [address] [place] [address] Екатерина Malone MD [address] [place] [address] ABN BLOOD CHEMISTRY NEC (Primary Dx) Social History Tobacco Use Types Packs/Day Years Used Date Smoking Tobacco: Never Assessed Comments Unknown Sex and Gender Information Value Date Recorded Sex Assigned at Not on file Legal Sex Female 5:42 AM REGISTERED PUBLIC SURVEYOR Gender Identity Not on file Sexual Orientation Not on file documented as of this encounter Plan of Treatment Not on file documented as of this encounter Visit Diagnoses Diagnosis Other abnormal blood chemistry- Primary documented in this encounter Care Teams Guard Sergeant Relationship Specialty Start Date End Date Sharan Gómez Jr., MD [address] [place] [address] PCP - General 08/10/05 documented as of this encounter
--- OUTSIDE RECORDS SUMMARY | 2025-05-27 10:16 | XMS_ITS | Encounter Summary ---
Author Organization [facility] Address [address] [place] [address] Care Team Providers Care Hand Thermal Cutter Name Role Phone Rico Muñiz MD, Sharan Jaime Primary Care Provider Encounter Details Date Type Department Care Team (Latest Contact Info) Description 04/23/2002 Outpatient Historical [facility] Sharan Gómez Jr., MD [address] [place] [address] Pure hypercholesterolem (Primary Dx); HYPERCALCEMIA Social History Tobacco Use Types Packs/Day Years Used Date Smoking Tobacco: Never Assessed Comments Unknown Sex and Gender Information Value Date Recorded Sex Assigned at Not on file Legal Sex Female 5:42 AM AUDIO VISUAL SECRETARY Gender Identity Not on file Sexual Orientation Not on file documented as of this encounter Plan of Treatment Not on file documented as of this encounter Visit Diagnoses Diagnosis Pure hypercholesterolem- Primary Pure hypercholesterolemia Hypercalcemia documented in this encounter Care Teams Hand Thermal Cutter Relationship Specialty Start Date End Date Sharan Gómez Jr., MD [address] [place] [address] PCP - General 08/10/05 documented as of this encounter
--- OUTSIDE RECORDS SUMMARY | 2025-05-27 10:16 | XMS_ITS | Encounter Summary ---
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 of anticoagulants Social History Tobacco Use Types Packs/Day Years Used Date Smoking Tobacco: Never Assessed Comments Unknown Sex and Gender Information Value Date Recorded Sex Assigned at Not on file Legal Sex Female 5:42 AM EDITORIAL MANAGER Gender Identity Not on file Sexual Orientation Not on file documented as of this encounter Plan of Treatment Not on file documented as of this encounter Visit Diagnoses Diagnosis Acute upper respiratory infections of unspecified site- Primary snf (current) use of anticoagulants Long-term (current) use of anticoagulants documented in this encounter Care Teams Firmware Manager Relationship Specialty Start Date End Date Sharan Gómez Jr., MD [address] [place] [address] PCP - General 08/10/05 documented as of this encounter
--- OUTSIDE RECORDS SUMMARY | 2025-05-27 10:16 | XMS_ITS | Encounter Summary ---
Author Organization [facility] Address [address] [place] [address] Care Team Providers Care House Wirer Name Role Phone Rico Muñiz MD, Sharan Jaime Primary Care Provider Encounter Details Date Type Department Care Team (Late st Contact Info) Description 06/24/2001 Outpatient Historical [facility] Serge Arrington MD [address] [facility] [address] [place] [address] Unspecified essential hypertension (Primary Dx); Other and unspecified hyperlipidemia Social History Tobacco Use Types Packs/Day Years Used Date Smoking Tobacco: Never Assessed Comments Unknown Sex and Gender Information Value Date Recorded Sex Assigned at Not on file Legal Sex Female 5:42 AM YEAST TENDER Gender Identity Not on file Sexual Orientation Not on file documented as of this encounter Plan of Treatment Not on file documented as of this encounter Visit Diagnoses Diagnosis Unspecified essential hypertension- Primary Other and unspecified hyperlipidemia documented in this encounter Care Teams House Wirer Relationship Specialty Start Date End Date Sharan Gómez Jr., MD [address] [place] [address] PCP - General 08/10/05 documented as of this encounter
--- OUTSIDE RECORDS SUMMARY | 2025-05-27 10:16 | XMS_ITS | Encounter Summary ---
Author Organization [facility] Address [address] [place] [address] Care Team Providers Care Automatic Driller And Reamer Name Role Phone Rico Muñiz MD, Sharan Jaime Primary Care Provider Encounter Details Date Type Department Care Team (Late st Contact Info) Description 10/14/2020 Lab Requisition [facility] [address] [place] [address] Paulina Peterson MD [address] [place] [address] Social History Tobacco Use Types Packs/Day Years Used Date Smoking Tobacco: Never Assessed Comments Unknown Sex and Gender Information Value Date Recorded Sex Assigned at Not on file Legal Sex Female 5:42 AM TELEGRAPHIC TYPEWRITER INSTALLER Gender Identity Not on file Sexual Orientation Not on file documented as of this encounter Plan of Treatment Not on file documented as of this encounter Procedures Procedure Name Priority Date/Time Associated Diagnosis Comments PROTIME-INR Routine 10/14/2020 6:16 AM TELEGRAPHIC TYPEWRITER INSTALLER documented in this encounter Results * (ABNORMAL) PROTIME-INR (10/14/2020 6:16 AM TELEGRAPHIC TYPEWRITER INSTALLER) PROTIME 43.3(H) 11.9 - 15.5 Seconds 10/14/2020 4:10 PM TELEGRAPHIC TYPEWRITER INSTALLER [facility] INR 4.4(H) 0.8 - 1.2 10/14/2020 4:10 PM TELEGRAPHIC TYPEWRITER INSTALLER [facility] Blood Collection / Unknown 10/14/2020 6:16 AM TELEGRAPHIC TYPEWRITER INSTALLER 10/14/2020 3:45 PM TELEGRAPHIC TYPEWRITER INSTALLER Narrative [facility] - 10/14/2020 4:10 PM TELEGRAPHIC TYPEWRITER INSTALLER Expected Values for INR: DVT/PE Goal INR 2.5; range 2.0 - 3.0 Valve Replacement Tissue Goal INR 2.5; range 2.0 - 3.0 Valve Replacement Mechanical Goal INR 3.0; range 2.5 - 3.5 POST-LA Goal INR 2.5; range 2.0 - 3.0 or Goal INR 3.0; range 2.5 - 3.5 Atrial Fibrillation Goal INR 2.5; range 2.0 - 3.0 Ischemic Stroke Goal INR 2.5; range 2.0 - 3.0 For additional information see Guidelines for Anticoagulation available from the pharmacy [facility] Paulina Peterson MD HEMATOLOGY ORDERABLES Maame smart Result [facility] [address] [place] [address] documented in this encounter Visit Diagnoses Not on filedocumented in this encounter Care Teams Automatic Driller And Reamer Relationship Specialty Start Date End Date Sharan Gómez Jr., MD [address] [place] [id number] PCP - General 08/10/05 documented as of this encounter
--- OUTSIDE RECORDS SUMMARY | 2025-05-27 10:16 | XMS_ITS | Encounter Summary ---
Author Organization [facility] Address [address] [place] [address] Care Team Providers Care Enrollment Management Vice President Name Role Phone Rico Muñiz MD, Sharan Jaime Primary Care Provider Encounter Details Date Type Department Care Team (Latest Contact Info) Description 07/04/2005 Outpatient Historical [facility] Int Luis AFaisal Lopez [address] [place] [address] Serge Arrington MD [address] [place] [address] Mitral valve disorder (Primary Dx); HYPERTENSION NOS; ABN FIND-STOOL CONTENTS-OCC BLOOD; SCREENING MAL NEOP-CERVIX Social History Tobacco Use Types Packs/Day Years Used Date Smoking Tobacco: Never Assessed Comments Unknown Sex and Gender Information Value Date Recorded Sex Assigned at Not on file Legal Sex Female 5:42 AM NUCLEAR FUEL PROCESSING TECHNICIAN Gender Identity Not on file Sexual Orientation Not on file documented as of this encounter Plan of Treatment Not on file documented as of this encounter Visit Diagnoses Diagnosis Mitral valve disorder- Primary Mitral valve disorders Unspecified essential hypertension Nonspecific abnormal finding in stool contents Screening for malignant neoplasm of the cervix documented in this encounter Care Teams Enrollment Management Vice President Relationship Specialty Start Date End Date Sharan Gómez Jr., MD [address] [place] [address] PCP - General 08/10/05 documented as of this encounter
--- OUTSIDE RECORDS SUMMARY | 2025-05-27 10:16 | XMS_ITS ---
Author Organization Unknown Results OrderDate OrderTestName ResultName ResultDate Value Units Range AbnormalFlag ResultStatus ObservationNotes TestCode ResultCode DateRecorded AccessionNumber DiagnosticSectionCode DiagnosticSectionName Sequence Interpretation Cust om 03/16/2025 00:00:00 MMA (METHYLMALONIC ACID), SERUM homocysteine 2975-26-34W31:00:00 11.9 umol/l < OR = 13.4 Final MMA (METHYLMALONIC ACID), SE RUM Coding homocysteine homocysteine 03/16/2025 00:00:00112/07/2023 00:00:00URINALYSIS, MSOLJDNO5311-05-90F60:00:00 Negative Coding URINALYSIS, DIPSTICK Coding 10/06/2024 00:00:001 00:00:91TRIsda1132-18-29E54:00:0013.4%11.5-14.5 Final Coding CBC Coding rdw 08/07/2024 00:00: 00:00:00PROTEIN ELECTROPHORESIS PANEL, SERUM OR PLASMAprotein, lzfzt2581-15-97E83:00:007.3g/dl6.1-8.1normalFinal Coding PROTEIN ELECTROPHORESIS PANE L, SERUM OR PLASMA Coding protein, total protein, total 03/16/2025 00:00:001 00:00:00CMP, SERUM OR PLASMAcalcium 2427-23-15P71:00:0010.2mg/dl8.6-10.4normalFinal Coding CMP, SERUM OR PLASMA Coding calcium calcium 10/28/2024 00:00: 00:00:00PT/LPC3279-24-33R33:00:0021.0 Coding PT/INR Coding 08/07/2024 00:00: 00:00:00CBCgranulcytes#1479-85-21J77:00:003.0x10 Final Coding CBC Coding granulcytes# 05/27/2024 00:00: 00:00:00URINALYSIS, COMPLETEprotein 1739-71-12K73:00:00NG Coding URINALYSIS, COMPLETE Coding protein 08/14/2024 00:00: 00:00:00URINALYSIS, COMPLETEother 4334-40-24P68:00:00NGFinal Coding URINALYSIS, COMPLETE Coding other 02/20/2025 00:00: 00:00:00URINALYSIS, COMPLETEnitrate 0419-39-03F34:00:00NGNEGATIVE Coding URINALYSIS, COMPLETE Coding nitrate 08/14/2024 00:00: 00:00:00PT/PLY6391-11-40W95:00:002.7 Coding PT/INR Coding 10/02/2024 00:00: 00:00:00CBCgranulcytes#9351-70-38X45:00:002.7x10 Final Coding CBC Coding granulcytes# 08/07/2024 00:00: 00:00:00PT/SEB9126-28-94E88:00:0035.5 Coding PT/INR Coding 03/11/2025 00:00: 00:00:00CBC W/ AUTO DIFFeosinophils 9938-12-85Y69:00:007.1%normalFinal Coding CBC W/ AUTO DIFF Coding eosinophils eosinophils 10/28/2024 00:00: 00:00:00CBC W/ AUTO DIFFabsolute monocytes 6391-65-74O00:00:89340vaepb/mi214-735botiqcEakif Coding CBC W/ AUTO DIFF Coding absolute monocytes absolute monocytes 10/28/2024 00:00: 00:00:00CBC W/ AUTO DIFFplatelet count 8599-70-79S58:00:49925yvzkthri/to706-730scwkzhZkdap Coding CBC W/ AUTO DIFF Coding platelet count platelet count 10/28/2024 00:00:00111/22/2023 00:00:00PT/JGQ1837-08-56X28:00:0027.2 Coding PT/INR Coding 09/22/2024 00:00: 00:00:12ZZBshg2382-30-82H23:00:0035.0pg27.0-32.0 highFinal Coding CBC Coding mch 05/27/2024 00:00: 00:00:00URINALYSIS, COMPLETEbacteria 7402-38-92D17:00:00NEGATIVEFinal Coding URINALYSIS, COMPLETE Coding bacteria 02/20/2025 00:00: 00:00:00VITAMIN B12, SERUMvitamin b12 5732-63-71R30:00:00>2000pg/mo109-0605zdyyOdejo Coding VITAMIN B12, SERUM Coding vitamin b12 vitamin b12 01/27/2025 00:00: 00:00:00PT/CZO4580-73-00K86:00:0036.9 Coding PT/INR Coding 11/13/2024 00:00: 00:00:00RAPID FLU (A+B), PIM2655-37-04O52:00:00 negative Coding RAPID FLU (A+B), PCR Coding 11/11/2024 00:00: 00:00:00PT/HLK1125-46-74D54:00:003.2 Coding PT/INR Coding 10/28/2024 00:00: 00:00:56BPEego8670-57-08Q62:00:003.37d473.50-5.50 Final Coding CBC Coding rbc 03/16/2025 00:00: 00:00:00CBCmonocytes %0395-33-62Y91:00:0010.8% 2.0-16.0Final Coding CBC Coding monocytes % 05/27/2024 00:00: 00:00:09LGHsob0996-71-24Y07:00:0038.9%37.0-47.0 Final Coding CBC Coding hct 03/16/2025 00:00:001 00:00:77UFPfnc7403-68-48L24:00:0012.2g/dl12.0-16.0 Final Coding CBC Coding hgb 08/07/2024 00:00:001 00:00:00CBC W/ AUTO DIFFlymphocytes 7454-08-28Z06:00:0027.5%normalFinal Coding CBC W/ AUTO DIFF Coding lymphocytes lymphocytes 10/28/2024 00:00: 00:00:00PROTEIN ELECTROPHORESIS PANEL, SERUM OR KEPUYZxycwvbw2398-08-86W26:00:004.7g/dl3.8-4.8normalFinal Coding PROTEIN ELECTROPHORESIS PANE L, SERUM OR PLASMA Coding albumin albumin 03/16/2025 00:00:001 00:00:00CBCmonocytes %3642-65-34C81:00:0010.2% 2.0-16.0Final Coding CBC Coding monocytes % 08/07/2024 00:00: 00:00:00PROTEIN ELECTROPHORESIS PANEL, SERUM OR PLASMAalpha 1 rtcrwwie9556-41-05M47:00:000.2g/dl0.2-0.3normalFinal Coding PROTEIN ELECTROPHORESIS PANE L, SERUM OR PLASMA Coding alpha 1 globulin alpha 1 globulin 03/16/2025 00:00:00006/09/2024 00:00:00PT/ZTU0427-92-79F04:00:002.4 Coding PT/INR Coding 06/09/2024 00:00:00112/07/2023 00:00:00CULTURE, URINEculture, urine, routine 4484-91-30R99:00:00SEE NOTEFinal Coding CULTURE, URINE Coding culture, urine, routine culture, urine, routine 10/06/2024 00:00: 00:00:00FOLATE, SERUMfolate, serum 3995-59-74P61:00:00>24.0ng/mlnormalFinal Coding FOLATE, SERUM Coding folate, serum folate, serum 03/16/2025 00:00:001 00:00:00CBClymphocytes %8308-88-61Q58:00:0030.5% 20.0-50.0Final Coding CBC Coding lymphocytes % 08/07/2024 00:00: 00:00:00CBCmonocytes #9271-12-01T35:00:000.6x10 Final Coding CBC Coding monocytes # 03/16/2025 00:00:00112/07/2023 00:00:00URINALYSIS, WDTOZCHC8951-55-96J02:00:00 Negative Coding URINALYSIS, DIPSTICK Coding 10/06/2024 00:00: 00:00:00PT/ASW1266-11-41Y34:00:0024.7 Coding PT/INR Coding 08/15/2024 00:00: 00:00:00URINALYSIS, COMPLETEclarity 2300-24-83R01:00:00CLEARCLEAR Coding URINALYSIS, COMPLETE Coding clarity 08/14/2024 00:00: 00:00:00MAMMO, SCREENING, DIGITAL, BILATERAL 9609-03-86U76:00:00 Coding MAMMO, SCREENING, DIGITAL, B ILATERAL Coding 08/15/2024 00:00:00111/05/2023 00:00:00PT/ZPG7430-15-20W41:00:0030.9 Coding PT/INR Coding 09/05/2024 00:00: 00:00:00PT/TSN9273-83-16X14:00:002.1 Coding PT/INR Coding 05/18/2025 00:00: 00:00:00PT/ZQF8402-44-49Y62:00:0023.8 Coding PT/INR Coding 12/29/2024 00:00:001 00:00:00CBC W/ AUTO DIFFabsolute lymphocytes 7885-96-68A63:00:918686gjfyw/ln390-7730wiabqzBvrta Coding CBC W/ AUTO DIFF Coding absolute lymphocytes absolute lymphocytes 10/28/2024 00:00:00112/03/2023 00:00:00PT/WPS5244-46-31H84:00:0032.7 Coding PT/INR Coding 10/02/2024 00:00: 00:00:00CMP, SERUM OR PLASMAprotein, total 4834-17-76Y74:00:007.4g/dl6.1-8.1normalFinal Coding CMP, SERUM OR PLASMA Coding protein, total protein, total 10/28/2024 00:00: 00:00:96NPYiryy8931-99-07M29:00:0033.5g/dl 32.0-36.0Final Coding CBC Coding mchc 08/07/2024 00:00: 00:00:00URINALYSIS, COMPLETEglucose 9976-33-27O11:00:00NGNEGATIVE Coding URINALYSIS, COMPLETE Coding glucose 08/14/2024 00:00: 00:00:00FECAL OCCULT BLOOD, IMMUNOASSAY, STOOL 1879-32-52Z22:00:00positive Coding FECAL OCCULT BLOOD, IMMUNOAS SAY, STOOL Coding 03/09/2025 00:00: 00:00:00INR, CRUMRWbir6986-57-13N16:00:002.7Final Coding INR, PLASMA Coding inr 10/02/2024 00:00: 00:00:00URINALYSIS, COMPLETEblood 0792-68-45B36:00:00NGNEGATIVE Coding URINALYSIS, COMPLETE Coding blood 08/14/2024 00:00: 00:00:00URINALYSIS, RZRRXHVOtrh4721-22-98E73:00:00 0-1Final Coding URINALYSIS, COMPLETE Coding wbc 02/20/2025 00:00: 00:00:00CBCgranulcytes %4061-12-84B66:00:0056.9% 30.0-70.0Final Coding CBC Coding granulcytes % 05/27/2024 00:00: 00:00:00CBCmonocytes #2394-43-52M91:00:000.6x10 Final Coding CBC Coding monocytes # 03/10/2025 00:00: 00:00:00CBCmonocytes %4087-48-81C36:00:0010.4% 2.0-16.0Final Coding CBC Coding monocytes % 03/10/2025 00:00: 00:00:06ATDbjz9162-80-73D27:00:0035.7pg27.0-32.0 highFinal Coding CBC Coding mch 03/10/2025 00:00: 00:00:00UPPER ENDOSCOPY PROCEDURE (EGD) (PROC) 7891-91-39P47:00:00 Coding UPPER ENDOSCOPY PROCEDURE (E GD) (PROC) Coding 05/29/2024 00:00: 00:00:03HNFhxt4585-09-10E16:00:003.37w521.50-5.50 lowFinal Coding CBC Coding rbc 03/10/2025 00:00: 00:00:00CMP, SERUM OR PLASMAchloride 3441-92-79M94:00:61051ewsl/y66-271ahpzlzOiwvb Coding CMP, SERUM OR PLASMA Coding chloride chloride 10/28/2024 00:00:001 00:00:64KFBgvh3404-01-20B02:00:13904.7x10 140.0-451.0Final Coding CBC Coding plt 08/07/2024 00:00: 00:00:00URINALYSIS, QMEQFODGjxm5816-30-13K19:00:00 NEGATIVEFinal Coding URINALYSIS, COMPLETE Coding ket 02/20/2025 00:00:001 00:00:00URINALYSIS, ADHZDCATqfa1809-99-18K39:00:00 1-20 Coding URINALYSIS, COMPLETE Coding wbc 08/14/2024 00:00:001 00:00:00URINALYSIS, VEHEXZFUqth6588-95-81E27:00:00 NG0 Coding URINALYSIS, COMPLETE Coding rbc 08/14/2024 00:00: 00:00:00PT/RIR5731-21-90B21:00:0019.4 Coding PT/INR Coding 06/02/2024 00:00:00112/07/2023 00:00:00URINALYSIS, WUWFJHGB9450-51-62E90:00:00 Yellow Coding URINALYSIS, DIPSTICK Coding 10/06/2024 00:00:00112/07/2023 00:00:00URINALYSIS, IDERFHOD1546-92-58D62:00:00 Trace Coding URINALYSIS, DIPSTICK Coding 10/06/2024 00:00: 00:00:00URINALYSIS, HROLQGJTit5549-63-44U34:00:00 5.55.0-7.0Final Coding URINALYSIS, COMPLETE Coding ph 02/20/2025 00:00: 00:00:18RZOyxp8898-29-41P73:00:005.3x104.0-10.5 Final Coding CBC Coding wbc 05/27/2024 00:00: 00:00:00XR, STERNUM, 2 OR MORE VIEW 4969-98-45R86:00:00 Coding XR, STERNUM, 2 OR MORE VIEW Coding 01/27/2025 00:00: 00:00:67ERGsii2269-05-88U24:00:0012.9%11.5-14.5 Final Coding CBC Coding rdw 03/16/2025 00:00: 00:00:00CMP, SERUM OR PLASMAbun/creatinine ratio 9448-59-19Q28:00:0016(calc)6-22normalFinal Coding CMP, SERUM OR PLASMA Coding bun/creatinine ratio bun/creatinine ratio 10/28/2024 00:00: 00:00:00URINALYSIS, COMPLETEbilirubin 3336-59-79D92:00:00NGNEGATIVE Coding URINALYSIS, COMPLETE Coding bilirubin 08/14/2024 00:00: 00:00:00MICROALBUMIN/CREATININE, MASS RATIO, URINE creatinine, random ibveg2068-96-69Z01:00:0079mg/cv64-937kupqkqLwgqp Coding MICROALBUMIN/CREATININE, MAS S RATIO, URINE Coding creatinine, random urine creatinine, random urine 08/07/2024 00:00:00005/27/2024 00:00:79JMKuom2973-92-03H75:00:0012.3g/dl12.0-16.0 Final Coding CBC Coding hgb 05/27/2024 00:00: 00:00:00CMP, SERUM OR ULARVXofa5855-80-50J35:00:00 11u/l6-29normalFinal Coding CMP, SERUM OR PLASMA Coding alt alt 10/28/2024 00:00: 00:00:00PT/KSL0065-24-94W88:00:0046.6 Coding PT/INR Coding 07/16/2024 00:00: 00:00:00IRON + TIBC + FERRITIN, SERUMiron, total 5769-69-44H63:00:11897mrt/cz09-587zkueueBqzlj Coding IRON + TIBC + FERRITIN, SERU M Coding iron, total iron, total 10/28/2024 00:00: 00:00:00RAPID FLU (A+B), ENG3568-83-91E08:00:00 negative Coding RAPID FLU (A+B), PCR Coding 11/11/2024 00:00: 00:00:00CBC W/ AUTO DIFFred blood cell count 6162-74-22G56:00:003.63million/ul3.80-5.10lowFinal Coding CBC W/ AUTO DIFF Coding red blood cell count red blood cell count 10/28/2024 00:00: 00:00:00IRON + TIBC + FERRITIN, SERUM% saturation 0953-32-05F37:00:0043% (calc)16-45normalFinal Coding IRON + TIBC + FERRITIN, SERU M Coding % saturation % saturation 10/28/2024 00:00: 00:00:00PT/FWS3781-65-80F77:00:0019.7 Coding PT/INR Coding 05/07/2025 00:00: 00:00:00CBC W/ AUTO DIFFhematocrit 8651-87-50E36:00:0037.8%35.0-45.0normalFinal Coding CBC W/ AUTO DIFF Coding hematocrit hematocrit 10/28/2024 00:00: 00:00:00URINALYSIS, YLWCSGBG1159-63-69T06:00:00 Non-Hemolyzed: Trace Coding URINALYSIS, DIPSTICK Coding 10/06/2024 00:00: 00:00:00COLONOSCOPY, WITH REMOVAL OF TUMOR, POLYP OR LESION (PROC)1006-10-78Q69:00:00 Coding COLONOSCOPY, WITH REMOVAL OF TUMOR, POLYP OR LESION (PROC) Coding 05/29/2024 00:00: 00:00:00CBC W/ AUTO TPATala4839-44-74B99:00:0011.9 %11.0-15.0normalFinal Coding CBC W/ AUTO DIFF Coding rdw rdw 10/28/2024 00:00: 00:00:00CBC W/ AUTO DIFFwhite blood cell count 6725-70-31A85:00:006.2thousand/ul3.8-10.8normalFinal Coding CBC W/ AUTO DIFF Coding white blood cell count white blood cell count 10/28/2024 00:00: 00:00:00CBC W/ AUTO OXVFhmo2117-76-28B13:00:0010.0 fl7.5-12.5normalFinal Coding CBC W/ AUTO DIFF Coding mpv mpv 10/28/2024 00:00: 00:00:00CBCmonocytes #9112-22-96R23:00:000.6x10 Final Coding CBC Coding monocytes # 05/27/2024 00:00: 00:00:00URINALYSIS, IWDCJFKR9847-60-66U19:00:00 1.025 Coding URINALYSIS, DIPSTICK Coding 10/06/2024 00:00: 00:00:14JETyxp9029-57-65H73:00:20086.7fl80.0-99.9 highFinal Coding CBC Coding mcv 08/07/2024 00:00: 00:00:00CBC W/ AUTO DIFFmonocytes 2171-11-38B64:00:009.4%normalFinal Coding CBC W/ AUTO DIFF Coding monocytes monocytes 10/28/2024 00:00: 00:00:00CMP, SERUM OR PLASMAsodium 8439-24-53I29:00:25153qtux/v072-272paffnpBsbcg Coding CMP, SERUM OR PLASMA Coding sodium sodium 10/28/2024 00:00: 00:00:00URINALYSIS, FMDXDFMN4639-69-76B33:00:00 Negative Coding URINALYSIS, DIPSTICK Coding 10/06/2024 00:00: 00:00:00MICROALBUMIN/CREATININE, MASS RATIO, URINE albumin, qjlyo8460-69-18J65:00:003.5mg/dlSEE NOTE:normalFinal Coding MICROALBUMIN/CREATININE, MAS S RATIO, URINE Coding albumin, urine albumin, urine 08/07/2024 00:00: 00:00:00URINALYSIS, UKBGBSBP2098-49-23P22:00:006.0 Coding URINALYSIS, DIPSTICK Coding 10/06/2024 00:00: 00:00:00CBC W/ AUTO DIFFabsolute basophils 6880-77-15Y49:00:0093cells/ul0-200normalFinal Coding CBC W/ AUTO DIFF Coding absolute basophils absolute basophils 10/28/2024 00:00: 00:00:00URINALYSIS, COMPLETEclarity 1390-43-03G26:00:00CLEARFinal Coding URINALYSIS, COMPLETE Coding clarity 02/20/2025 00:00: 00:00:00VITAMIN B12, SERUMvitamin b12 6853-17-45V73:00:640892ag/op836-7163hvtzJmfug Coding VITAMIN B12, SERUM Coding vitamin b12 vitamin b12 03/16/2025 00:00: 00:00:80ZIVbuyy4976-98-89J87:00:0034.6g/dl 32.0-36.0Final Coding CBC Coding mchc 05/27/2024 00:00:001 00:00:00URINALYSIS, COMPLETEketones 2052-34-83S93:00:00NGNEGATIVE Coding URINALYSIS, COMPLETE Coding ketones 08/14/2024 00:00: 00:00:03WWYckvg4802-11-99I00:00:0032.9g/dl 32.0-36.0Final Coding CBC Coding mchc 03/10/2025 00:00: 00:00:00CULTURE, URINEculture, urine, routine 5490-63-65R05:00:00SEE NOTEFinal Coding CULTURE, URINE Coding culture, urine, routine culture, urine, routine 02/20/2025 00:00: 00:00:00CBC W/ AUTO DIFFhemoglobin 9960-58-45D91:00:0012.7g/dl11.7-15.5normalFinal Coding CBC W/ AUTO DIFF Coding hemoglobin hemoglobin 10/28/2024 00:00: 00:00:00PT/GNE6966-02-74C81:00:0027.7 Coding PT/INR Coding 01/19/2025 00:00: 00:00:00CBClymphocytes #5836-78-90S80:00:001.6x10 Final Coding CBC Coding lymphocytes # 03/10/2025 00:00: 00:00:12YGDwirh7848-69-88D43:00:0032.5g/dl 32.0-36.0Final Coding CBC Coding mchc 03/16/2025 00:00: 00:00:00PT/YRW8510-49-41D13:00:003.9 Coding PT/INR Coding 07/16/2024 00:00: 00:00:00PT/JQV7148-30-02E98:00:003.0 Coding PT/INR Coding 03/11/2025 00:00: 00:00:00CBCgranulcytes %1608-88-42J40:00:0051.3% 30.0-70.0Final Coding CBC Coding granulcytes % 08/07/2024 00:00:001 00:00:00URINALYSIS, COMPLETEcolor 0110-81-32W23:00:00YELLOW Coding URINALYSIS, COMPLETE Coding color 08/14/2024 00:00: 00:00:00PROTEIN ELECTROPHORESIS PANEL, SERUM OR PLASMAgamma rjfvrcqt2676-71-63U55:00:001.2g/dl0.8-1.7normalFinal Coding PROTEIN ELECTROPHORESIS PANE L, SERUM OR PLASMA Coding gamma globulin gamma globulin 03/16/2025 00:00: 00:00:00CBC W/ AUTO DIFFabsolute neutrophils 6772-55-66O84:00:339680ggkmr/rz7602-6896olspucDenck Coding CBC W/ AUTO DIFF Coding absolute neutrophils absolute neutrophils 10/28/2024 00:00: 00:00:00CBCgranulcytes %5431-03-32B16:00:0054.5% 30.0-70.0Final Coding CBC Coding granulcytes % 03/10/2025 00:00: 00:00:43LBBcqb9676-80-62X46:00:0036.7%37.0-47.0low Final Coding CBC Coding hct 03/10/2025 00:00: 00:00:00URINALYSIS, YJEZQRQA8451-95-47M40:00:001 Coding URINALYSIS, DIPSTICK Coding 10/06/2024 00:00: 00:00:00CMP, SERUM OR PLASMAalbumin/globulin ratio 7549-59-95J83:00:001.8(calc)1.0-2.5normalFinal Coding CMP, SERUM OR PLASMA Coding albumin/globulin ratio albumin/globulin ratio 10/28/2024 00:00: 00:00:81WSOmgh0297-99-10D57:00:76270.2x10 140.0-451.0Final Coding CBC Coding plt 03/16/2025 00:00:001 00:00:00URINALYSIS, COMPLETEleukocytes 1737-60-28N22:00:00TRACENEGATIVEabnormal Coding URINALYSIS, COMPLETE Coding leukocytes 08/14/2024 00:00:001 00:00:53EXLvfd2093-93-35N77:00:003.35u825.50-5.50 Final Coding CBC Coding rbc 08/07/2024 00:00: 00:00:50IFYuzv0014-80-38U01:00:64787.3x10 140.0-451.0Final Coding CBC Coding plt 05/27/2024 00:00: 00:00:00URINALYSIS, COMPLETEs.y3690-65-57F96:00:00 1.0151.005-1.025Final Coding URINALYSIS, COMPLETE Coding s.g 02/20/2025 00:00: 00:00:00PROTEIN ELECTROPHORESIS PANEL, SERUM OR PLASMAalpha 2 csjvmzft8355-52-35P07:00:000.5g/dl0.5-0.9normalFinal Coding PROTEIN ELECTROPHORESIS PANE L, SERUM OR PLASMA Coding alpha 2 globulin alpha 2 globulin 03/16/2025 00:00:001 00:00:00URINALYSIS, COMPLETEother 4419-43-32M25:00:00NG Coding URINALYSIS, COMPLETE Coding other 08/14/2024 00:00:00005/27/2024 00:00:00PT/XTG3745-26-92M00:00:0013.7 Coding PT/INR Coding 05/27/2024 00:00: 00:00:00CBCgranulcytes %1469-56-28Z41:00:0060.1% 30.0-70.0Final Coding CBC Coding granulcytes % 03/16/2025 00:00: 00:00:77QDOnnj5433-76-93P39:00:92726.4x10 140.0-451.0Final Coding CBC Coding plt 03/10/2025 00:00: 00:00:27RKHkgg4673-38-25G08:00:0013.1%11.5-14.5 Final Coding CBC Coding rdw 03/10/2025 00:00: 00:00:35AXSkck7046-83-44R89:00:0012.1g/dl12.0-16.0 Final Coding CBC Coding hgb 03/10/2025 00:00: 00:00:31HPBatf1286-26-39R38:00:005.4x104.0-10.5 Final Coding CBC Coding wbc 03/10/2025 00:00:001 00:00:00CMP, SERUM OR PLASMAcarbon dioxide 4474-05-93E13:00:0027mmol/y15-42jkwzopHellw Coding CMP, SERUM OR PLASMA Coding carbon dioxide carbon dioxide 10/28/2024 00:00: 00:00:00PT/CIY4978-37-91D42:00:002.3 Coding PT/INR Coding 01/19/2025 00:00:00005/18/2025 00:00:00PT/RHY4450-95-98A91:00:0024.9 Coding PT/INR Coding 05/18/2025 00:00: 00:00:22ZJWtvt9167-83-08N99:00:0035.0pg27.0-32.0 highFinal Coding CBC Coding mch 03/16/2025 00:00:00112/07/2023 00:00:00URINALYSIS, GGRIOBVS6288-41-47U35:00:00 negative Coding URINALYSIS, DIPSTICK Coding 10/06/2024 00:00: 00:00:29OVBnzz8455-83-36M57:00:0035.6%37.0-47.0low Final Coding CBC Coding hct 05/27/2024 00:00: 00:00:00CBC W/ AUTO WSBXgwy7239-89-61I53:00:00 104.1fl80.0-100.0highFinal Coding CBC W/ AUTO DIFF Coding mcv mcv 10/28/2024 00:00: 00:00:39UWQ1O (HEMOGLOBIN A1C), BLOOD 9620-53-33N24:00:005.6 Coding HBA1C (HEMOGLOBIN A1C), BLOO D Coding 08/07/2024 00:00: 00:00:00PROTEIN ELECTROPHORESIS PANEL, SERUM OR PLASMAbeta 2 tomqclvr0282-66-27Y20:00:000.3g/dl0.2-0.5normalFinal Coding PROTEIN ELECTROPHORESIS PANE L, SERUM OR PLASMA Coding beta 2 globulin beta 2 globulin 03/16/2025 00:00: 00:00:00UPPER ENDOSCOPY PROCEDURE (EGD) (PROC) 3437-72-97Z64:00:00 Coding UPPER ENDOSCOPY PROCEDURE (E GD) (PROC) Coding 04/22/2025 00:00: 00:00:00CBC W/ AUTO DIFFbasophils 5228-12-86W76:00:001.5%normalFinal Coding CBC W/ AUTO DIFF Coding basophils basophils 10/28/2024 00:00: 00:00:00CBCgranulcytes#6760-10-85Y44:00:002.9x10 Final Coding CBC Coding granulcytes# 03/10/2025 00:00: 00:00:00URINALYSIS, BGKENBQG2930-55-81N08:00:00 Negative Coding URINALYSIS, DIPSTICK Coding 10/06/2024 00:00: 00:00:00CBClymphocytes %1709-62-56F98:00:0030.1% 20.0-50.0Final Coding CBC Coding lymphocytes % 03/10/2025 00:00:00004/22/2025 00:00:00COLONOSCOPY PROCEDURE (PROC) 1623-14-40J58:00:00 Coding COLONOSCOPY PROCEDURE (PROC) Coding 04/22/2025 00:00: 00:00:92SZWofr7676-20-70P02:00:005.2x104.0-10.5 Final Coding CBC Coding wbc 03/16/2025 00:00: 00:00:00CBCmonocytes #3191-73-93V38:00:000.5x10 Final Coding CBC Coding monocytes # 08/07/2024 00:00: 00:00:00XR, ABDOMEN, TEXTDUPA2337-49-33I46:00:00 Coding XR, ABDOMEN, COMPLETE Coding 10/28/2024 00:00: 00:00:00ESR (ERYTHROCYTE SEDIMENTATION RATE), XHIRP3226-14-60W14:00:0025 Coding ESR (ERYTHROCYTE SEDIMENTATI ON RATE), BLOOD Coding 10/28/2024 00:00: 00:00:00CBClymphocytes #8528-96-03M59:00:001.4x10 Final Coding CBC Coding lymphocytes # 05/27/2024 00:00: 00:00:00PROTEIN ELECTROPHORESIS PANEL, SERUM OR PLASMAbeta 1 icjiglqu1965-65-54L67:00:000.4g/dl0.4-0.6normalFinal Coding PROTEIN ELECTROPHORESIS PANE L, SERUM OR PLASMA Coding beta 1 globulin beta 1 globulin 03/16/2025 00:00:001 00:00:00CMP, SERUM OR PLASMAurea nitrogen (bun) 4878-11-27O70:00:0017mg/dl7-25normalFinal Coding CMP, SERUM OR PLASMA Coding urea nitrogen (bun) urea nitrogen (bun) 10/28/2024 00:00:001 00:00:00URINALYSIS, YFSEVYIBwlp4407-22-81F30:00:00 0.2 Coding URINALYSIS, COMPLETE Coding uro 08/14/2024 00:00:00112/07/2023 00:00:00URINALYSIS, XYVUUNEN4256-00-56G33:00:00 Clear Coding URINALYSIS, DIPSTICK Coding 10/06/2024 00:00: 00:00:00TSH, SERUM OR CFHVMYiap0289-83-35V21:00:00 2.02uiu/ml0.49-3.82 Coding TSH, SERUM OR PLASMA Coding tsh 08/07/2024 00:00: 00:00:00URINALYSIS, WPNHANHFumt5459-51-54D49:00:00 0.2 E.U./DLFinal Coding URINALYSIS, COMPLETE Coding uro 02/20/2025 00:00: 00:00:00URINALYSIS, BCCQEIARixj6130-14-82Z83:00:00 NEGATIVEFinal Coding URINALYSIS, COMPLETE Coding pro 02/20/2025 00:00: 00:00:00PT/OPE7836-17-40Y83:00:003.1 Coding PT/INR Coding 11/13/2024 00:00:001 00:00:21CRYlox8510-95-39C60:00:0034.1pg27.0-32.0 highFinal Coding CBC Coding mch 08/07/2024 00:00: 00:00:00URINALYSIS, XDOPTPTFsbf0757-73-06S22:00:00 NEGATIVEFinal Coding URINALYSIS, COMPLETE Coding nit 02/20/2025 00:00:001 00:00:00CMP, SERUM OR PLASMAcreatinine 2534-14-65Q84:00:001.09mg/dl0.60-1.00highFinal Coding CMP, SERUM OR PLASMA Coding creatinine creatinine 10/28/2024 00:00: 00:00:00PT/AQP5068-34-18R91:00:002.0 Coding PT/INR Coding 12/29/2024 00:00: 00:00:00CMP, SERUM OR PLASMApotassium 9628-69-54T18:00:005.0mmol/l3.5-5.3normalFinal Coding CMP, SERUM OR PLASMA Coding potassium potassium 10/28/2024 00:00: 00:00:00CBClymphocytes #5150-69-84C81:00:001.6x10 Final Coding CBC Coding lymphocytes # 08/07/2024 00:00: 00:00:00PT/KMI5996-90-29A32:00:001.6 Coding PT/INR Coding 06/02/2024 00:00: 00:00:00PT/WLQ1824-51-16P94:00:001.7 Coding PT/INR Coding 08/07/2024 00:00: 00:00:00URINALYSIS, COMPLETEbacteria 9640-49-78O92:00:00NG Coding URINALYSIS, COMPLETE Coding bacteria 08/14/2024 00:00: 00:00:00CMP, SERUM OR WTMCRBvjp6004-89-12S31:00:00 19u/x91-61xnvsnoAnfut Coding CMP, SERUM OR PLASMA Coding ast ast 10/28/2024 00:00: 00:00:00RETIC COUNT, BLOODreticulocyte count, qyotpkuyz9500-36-64I80:00:002.7%normalFinal Coding RETIC COUNT, BLOOD Coding reticulocyte count, automate d reticulocyte count, automate d 03/16/2025 00:00: 00:00:00PT/EYI1269-69-83T58:00:001.6 Coding PT/INR Coding 05/07/2025 00:00:001 00:00:00VITAMIN B12, SERUMvitamin b12 7378-17-40W39:00:024185cx/xy149-1437ikvmHcxxk Coding VITAMIN B12, SERUM Coding vitamin b12 vitamin b12 10/28/2024 00:00:001 00:00:00CMP, SERUM OR PLASMAglobulin 3247-97-33A85:00:002.6g/dl (calc)1.9-3.7normalFinal Coding CMP, SERUM OR PLASMA Coding globulin globulin 10/28/2024 00:00: 00:00:99WPMcjf2299-88-98J48:00:48438.8fl80.0-99.9 highFinal Coding CBC Coding mcv 03/16/2025 00:00: 00:00:00CMP, SERUM OR PLASMAbilirubin, total 4973-30-49I99:00:000.8mg/dl0.2-1.2normalFinal Coding CMP, SERUM OR PLASMA Coding bilirubin, total bilirubin, total 10/28/2024 00:00: 00:00:00RETIC COUNT, BLOODreticulocyte, absolute 0841-48-42U54:00:2628849xbcqv/gn03071-51392aqtiKiahj Coding RETIC COUNT, BLOOD Coding reticulocyte, absolute reticulocyte, absolute 03/16/2025 00:00: 00:00:18OZXvpt8455-97-89C88:00:003.36i100.50-5.50 Final Coding CBC Coding rbc 05/27/2024 00:00: 00:00:00URINALYSIS, COMPLETEcolor 5768-68-19X10:00:00YELLOWFinal Coding URINALYSIS, COMPLETE Coding color 02/20/2025 00:00: 00:00:24XZDzun1258-83-10S67:00:57808.5fl80.0-99.9 highFinal Coding CBC Coding mcv 03/10/2025 00:00: 00:00:00CBCmonocytes %1672-05-19T58:00:0010.9% 2.0-16.0Final Coding CBC Coding monocytes % 03/16/2025 00:00: 00:00:00UNKNOWNperipheral blood smear review 1115-93-03I51:00:00Final Coding UNKNOWN Coding peripheral blood smear revie w peripheral blood smear revie w 03/16/2025 00:00: 00:00:00PT/NRR0658-91-96K57:00:0038.8 Coding PT/INR Coding 10/28/2024 00:00: 00:00:11VJPgfx0646-25-06V65:00:0012.7g/dl12.0-16.0 Final Coding CBC Coding hgb 03/16/2025 00:00: 00:00:00CBClymphocytes %7186-73-53A35:00:0024.2% 20.0-50.0Final Coding CBC Coding lymphocytes % 03/16/2025 00:00:001 00:00:00URINALYSIS, LJWWHYSIab2012-13-44O46:00:00 6.05.0-7.0 Coding URINALYSIS, COMPLETE Coding ph 08/14/2024 00:00: 00:00:00URINALYSIS, XIOAJHTTsow3606-32-57O22:00:00 NEGATIVEFinal Coding URINALYSIS, COMPLETE Coding jose elias 02/20/2025 00:00: 00:00:00CMP, SERUM OR PLASMAglucose 3270-21-38O62:00:0091mg/dq10-64fwnqquYccqz Coding CMP, SERUM OR PLASMA Coding glucose glucose 10/28/2024 00:00: 00:00:66QZRcst8282-77-99A47:00:0013.4%11.5-14.5 Final Coding CBC Coding rdw 05/27/2024 00:00: 00:00:90EHVrpn3907-21-50K97:00:78038.2fl80.0-99.9 highFinal Coding CBC Coding mcv 05/27/2024 00:00: 00:00:00IRON + TIBC + FERRITIN, SERUMferritin 2913-88-71K45:00:60492mi/em17-916fyauosXjdgq Coding IRON + TIBC + FERRITIN, SERU M Coding ferritin ferritin 10/28/2024 00:00: 00:00:00PT/YXD6928-11-23Y28:00:002.3 Coding PT/INR Coding 09/22/2024 00:00: 00:00:62UAKrwf8402-18-37P76:00:0036.5%37.0-47.0low Final Coding CBC Coding hct 08/07/2024 00:00: 00:00:00CMP, SERUM OR PLASMAalkaline phosphatase 5130-45-55O49:00:0080u/d65-877jccggrAyhtg Coding CMP, SERUM OR PLASMA Coding alkaline phosphatase alkaline phosphatase 10/28/2024 00:00: 00:00:00CMP, SERUM OR PLASMAalbumin 1585-35-05A27:00:004.8g/dl3.6-5.1normalFinal Coding CMP, SERUM OR PLASMA Coding albumin albumin 10/28/2024 00:00: 00:00:00PT/[id number]:00:001.1 Coding PT/INR Coding 05/27/2024 00:00: 00:00:84LOKprd1157-57-63V98:00:005.3x104.0-10.5 Final Coding CBC Coding wbc 08/07/2024 00:00: 00:00:00CBClymphocytes #9686-12-15V76:00:001.3x10 Final Coding CBC Coding lymphocytes # 03/16/2025 00:00: 00:00:00URINALYSIS, FRBLGRFAsyb4035-82-39A50:00:00 NEGATIVEFinal Coding URINALYSIS, COMPLETE Coding rbc 02/20/2025 00:00: 00:00:00CBC W/ AUTO SAKJzmr3638-09-29K14:00:0035.0 pg27.0-33.0highFinal Coding CBC W/ AUTO DIFF Coding mch mch 10/28/2024 00:00: 00:00:00URINALYSIS, COMPLETEepi cells 6642-47-54B86:00:000-10 Coding URINALYSIS, COMPLETE Coding epi cells 08/14/2024 00:00: 00:00:00URINALYSIS, SBJPYRSMeoi2111-62-29T41:00:00 NEGATIVEFinal Coding URINALYSIS, COMPLETE Coding glu 02/20/2025 00:00: 00:00:00SARS COV 2 RNA, QL, NASOPHARYNX 3064-48-79O55:00:00positive Coding SARS COV 2 RNA, QL, NASOPHAR YNX Coding 11/11/2024 00:00: 00:00:00PT/[id number]:00:002.6 Coding PT/INR Coding 09/05/2024 00:00: 00:00:00PT/PVJ1028-12-17F89:00:0029.0 Coding PT/INR Coding 06/09/2024 00:00: 00:00:00URINALYSIS, COMPLETEepi cells 1365-13-54E71:00:00NEGATIVEFinal Coding URINALYSIS, COMPLETE Coding epi cells 02/20/2025 00:00: 00:00:00URINALYSIS, COMPLETEspecific gravity 8072-03-46U34:00:001.0151.005-1.025 Coding URINALYSIS, COMPLETE Coding specific gravity 08/14/2024 00:00: 00:00:00IRON + TIBC + FERRITIN, SERUMiron binding mcrknbnn6122-88-27R40:00:45075pcu/dl (calc)250-450normalFinal Coding IRON + TIBC + FERRITIN, SERU M Coding iron binding capacity iron binding capacity 10/28/2024 00:00: 00:00:00MMA (METHYLMALONIC ACID), SERUM methylmalonic lkuk5372-07-51L80:00:65072elnq/t38-232Wzfzt Coding MMA (METHYLMALONIC ACID), SE RUM Coding methylmalonic acid methylmalonic acid 03/16/2025 00:00: 00:00:00CBCgranulcytes#6938-26-68P83:00:003.1x10 Final Coding CBC Coding granulcytes# 03/16/2025 00:00: 00:00:00CBClymphocytes %0199-34-78U70:00:0026.0% 20.0-50.0Final Coding CBC Coding lymphocytes % 05/27/2024 00:00: 00:00:00CBC W/ AUTO DIFFabsolute eosinophils 9745-40-40N35:00:00212vjqqb/cw53-171qpaspuMzalf Coding CBC W/ AUTO DIFF Coding absolute eosinophils absolute eosinophils 10/28/2024 00:00: 00:00:00URINALYSIS, COMPLETEbili 9280-87-20K68:00:00NEGATIVEFinal Coding URINALYSIS, COMPLETE Coding bili 02/20/2025 00:00: 00:00:00CBC W/ AUTO AHASdwpb8939-19-64S63:00:00 33.6g/dl32.0-36.0normalFinal Coding CBC W/ AUTO DIFF Coding mchc mchc 10/28/2024 00:00: 00:00:00URINALYSIS, [id number]:00:00 NEGATIVEFinal Coding URINALYSIS, COMPLETE Coding blo 02/20/2025 00:00:001 00:00:00CBC W/ AUTO DIFFneutrophils 4376-57-64S80:00:0054.5%normalFinal Coding CBC W/ AUTO DIFF Coding neutrophils neutrophils 10/28/2024 00:00:001 00:00:00PT/[id number]:00:002.1 Coding PT/INR Coding 08/15/2024 00:00: 00:00:00PROTEIN ELECTROPHORESIS PANEL, SERUM OR FSFHBEqxmyglaulzlrao8786-87-00S67:00:00Final Coding PROTEIN ELECTROPHORESIS PANE L, SERUM OR PLASMA Coding interpretation interpretation 03/16/2025 00:00: 00:00:00MICROALBUMIN/CREATININE, MASS RATIO, URINE albumin/creatinine ratio, random rkycs4687-38-31P87:00:0044mg/g creat<30high Final Coding MICROALBUMIN/CREATININE, MAS S RATIO, URINE Coding albumin/creatinine ratio, ra ndom urine albumin/creatinine ratio, ra ndom urine 08/07/2024 00:00: 00:00:00CMP, SERUM OR PLASMAegfr 8952-12-92H41:00:0053ml/min/1.73m2> OR = 60lowFinal Coding CMP, SERUM OR PLASMA Coding egfr egfr 10/28/2024 00:00:00
--- OUTSIDE RECORDS SUMMARY | 2025-05-27 10:16 | XMS_ITS | Encounter Summary ---
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
--- OUTSIDE RECORDS SUMMARY | 2025-05-27 10:16 | XMS_ITS | Encounter Summary ---
Author Organization [facility] Address [address] [place] [address] Care Team Providers Care Structural Biologist Name Role Phone Rico Muñiz MD, Sharan Jaime Primary Care Provider Encounter Details Date Type Department Care Team (Latest Contact Info) Description 04/19/2001 Outpatient Historical [facility] Arun Nichols NO ADDRESS ON FILE Contusion of hand(s) (Primary Dx) Social History Tobacco Use Types Packs/Day Years Used Date Smoking Tobacco: Never Assessed Comments Unknown Sex and Gender Information Value Date Recorded Sex Assigned at Not on file 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
--- OUTSIDE RECORDS SUMMARY | 2025-05-27 10:17 | XMS_ITS | Encounter Summary ---
Author Organization [facility] Address [address] [place] [address] Care Team Providers Care Import/Export Clerk Name Role Phone Rico Muñiz MD, Sharan Jaime Primary Care Provider Encounter Details Date Type Department Care Team (Latest Contact Info) Description 03/18/1999 Outpatient Historical [facility] Sharan Gómez Jr., MD [address] [place] [address] Endocarditis, valve unspecified, unspecified cause (Primary Dx); detention (current) use of anticoagulants Social History Tobacco Use Types Packs/Day Years Used Date Smoking Tobacco: Never Assessed Comments Unknown Sex and Gender Information Value Date Recorded Sex Assigned at Not on file 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
--- OUTSIDE RECORDS SUMMARY | 2025-05-27 10:17 | XMS_ITS | Encounter Summary ---
Author Organization [facility] Address [address] [place] [address] Care Team Providers Care Tunnel Kiln Operator Name Role Phone Rico Muñiz MD, Sharan Jaime Primary Care Provider Encounter Details Date Type Department Care Team (Latest Contact Info) Description 11/14/2001 Outpatient Historical [facility] Sharan Gómez Jr., MD [address] [place] [address] OSTEOARTHROS NOS-UNSPEC (Primary Dx); HEART VALVE REPLAC NEC Social History Tobacco Use Types Packs/Day Years Used Date Smoking Tobacco: Never Assessed Comments Unknown Sex and Gender Information Value Date Recorded Sex Assigned at Not on file Legal Sex Female 5:42 AM BODY MAN Gender Identity Not on file Sexual Orientation Not on file documented as of this encounter Plan of Treatment Not on file documented as of this encounter Visit Diagnoses Diagnosis Osteoarthrosis, unspecified whether generalized or localized, unspecified site- Primary Heart valve replaced by other means documented in this encounter Care Teams Tunnel Kiln Operator Relationship Specialty Start Date End Date Sharan Gómez Jr., MD [address] [place] [address] PCP - General 08/10/05 documented as of this encounter
--- OUTSIDE RECORDS SUMMARY | 2025-05-27 10:17 | XMS_ITS | Encounter Summary ---
Author Organization [facility] Address [address] Attn: [place] [address] Care Team Providers Care Commodity Manager Name Role Phone Rico Muñiz MD, Sharan Jaime Primary Care Provider Encounter Details Date Type Department Care Team (Late st Contact Info) Description 05/24/2000 Outpatient Historical Sharan Gómez Jr., MD [address] [place] [address] Social History Tobacco Use Types Packs/Day Years Used Date Smoking Tobacco: Never Assessed Comments Unknown Sex and Gender Information Value Date Recorded Sex Assigned at Not on file Legal Sex Female 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
--- OUTSIDE RECORDS SUMMARY | 2025-05-27 10:17 | XMS_ITS | Encounter Summary ---
Author Organization [facility] Address [address] [place] [address] Care Team Providers Care Cloth Mender Name Role Phone Rico Muñiz MD, Sharan Jaime Primary Care Provider Encounter Details Date Type Department Care Team (Latest Contact Info) Description 02/15/2001 Outpatient Historical [facility] Sharan Gómez Jr., MD [address] [place] [address] Unspecified essential hypertension (Primary Dx); Heart valve replaced by other means Social History Tobacco Use Types Packs/Day Years Used Date Smoking Tobacco: Never Assessed Comments Unknown Sex and Gender Information Value Date Recorded Sex Assigned at Not on file 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
--- OUTSIDE RECORDS SUMMARY | 2025-05-27 10:17 | XMS_ITS | Clinical Summary ---
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 Gender Identity Not on file Sexual Orientation Not on file Plan of Treatment Health Maintenance Due Date Last Done Comments DTAP/TDAP/TD VACCINES (1 - Tdap) 1968 FIT-DNA Q 3 years 1994 FIT/FOBT Q 1 year 1994 ZOSTER VACCINE (1 of 2) 1999 PNEUMOCOCCAL VACCINE 50+ YEARS (2 of 2 - PCV) 06/26/20 04 06/26/2003 Flex Sig/CT Colonography Q 5 years 12/31/20052000 OSTEOPOROSIS SCREENING 2014 COLORECTAL SCREENING 08/10/2015 08/10/2005 Colorectal Cancer Screening 08/10/2015 RSV VACCINE (60+ or ) (1 - 1-dose 75+ series) 2024 INFLUENZA VACCINE (#1) 2025 Insurance BLUE CROSS AND [place]UE [place]IELD [place]ID [place] Care Teams Field Care Advocate Relationship Specialty Start Date End Date Sharan Gómez Jr., MD [address] [place] [address] PCP - General 08/10/05
--- OUTSIDE RECORDS SUMMARY | 2025-05-27 10:17 | XMS_ITS | Encounter Summary ---
Author Organization [facility] Address [address] Attn: [place] [address] Care Team Providers Care Block Operator Name Role Phone Rico Muñiz MD, Sharan Jaime Primary Care Provider Encounter Details Date Type Department Care Team (Late st Contact Info) Description 12/20/2001 Outpatient Historical Sharan Gómez Jr., MD [address] [place] [address] Social History Tobacco Use Types Packs/Day Years Used Date Smoking Tobacco: Never Assessed Comments Unknown Sex and Gender Information Value Date Recorded Sex Assigned at Not on file Legal 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
--- OUTSIDE RECORDS SUMMARY | 2025-05-27 10:17 | XMS_ITS | Encounter Summary ---
Author Organization [facility] Address [address] [place] [address] Care Team Providers Care Lip Of Shank Cutter Name Role Phone Rico Muñiz MD, Sharan Jaime Primary Care Provider Encounter Details Date Type Department Care Team (Latest Contact Info) Description 06/18/1998 Outpatient Historical [facility] Int Luis AFaisal Lopez [address] [place] [address] Serge Arrington MD [address] [place] [address] Mitral valve disorder (Primary Dx); Unspecified essential hypertension; Hematuria; Routine medical exam Social History Tobacco Use Types Packs/Day Years Used Date Smoking Tobacco: Never Assessed Comments Unknown Sex and Gender Information Value Date Recorded Sex Assigned at Not on file Legal 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
--- OUTSIDE RECORDS SUMMARY | 2025-05-27 10:17 | XMS_ITS | Encounter Summary ---
Author Organization [facility] Address [address] [place] [address] Care Team Providers Care Web Press Operator Assistant Name Role Phone Rico Muñiz MD, Sharan Jaime Primary Care Provider Encounter Details Date Type Department Care Team (Latest Contact Info) Description 08/31/2000 Outpatient Historical [facility] Sharan Gómez Jr., MD [address] [place] [address] Pure hypercholesterolem (Primary Dx); Dietary surveil/juvenile counselor Social History Tobacco Use Types Packs/Day Years Used Date Smoking Tobacco: Never Assessed Comments Unknown Sex and Gender Information Value Date Recorded Sex Assigned at Not on file Legal Sex Female 5: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
--- OUTSIDE RECORDS SUMMARY | 2025-05-27 10:17 | XMS_ITS | Encounter Summary ---
Author Organization [facility] Address [address] [place] [address] Care Team Providers Care Transmissions Systems Operator Name Role Phone Rico Muñiz MD, Sharan Jaime Primary Care Provider Encounter Details Date Type Department Care Team (Latest Contact Info) Description 07/02/2001 Outpatient Historical 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
--- OUTSIDE RECORDS SUMMARY | 2025-05-27 10:17 | XMS_ITS | Encounter Summary ---
Author Organization [facility] Address [address] [place] [address] Care Team Providers Care Diagnostic Assistant Name Role Phone Rico Muñiz MD, Sharan Jaime Primary Care Provider Encounter Details Date Type Department Care Team (Latest Contact Info) Description 05/18/1999 Outpatient Historical [facility] Sharan Gómez Jr., MD [address] [place] [address] Osteoarthrosis, unspecified whether generalized or localized, unspecified site (Primary Dx); varnish remover (current) use of anticoagulants; Heart valve replaced by other means Social History Tobacco Use Types Packs/Day Years Used Date Smoking Tobacco: Never Assessed Comments Unknown Sex and Gender Information Value Date Recorded Sex Assigned at Not on file Legal 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 Female 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 Gender Identity Not on file Sexual Orientation Not on file documented as of this encounter Plan of Treatment Not on file documented as of this encounter Visit Diagnoses Diagnosis Osteoarthrosis, unspecified whether generalized or localized, unspecified site- Primary varnish remover (current) use of anticoagulants Long-term (current) use of anticoagulants Heart valve replaced by other means documented in this encounter Care Teams Diagnostic Assistant Relationship Specialty Start Date End Date Sharan Gómez Jr., MD [address] [place] [address] PCP - General 08/10/05 documented as of this encounter
--- OUTSIDE RECORDS SUMMARY | 2025-05-27 10:17 | XMS_ITS | Encounter Summary ---
Author Organization [facility] Address [address] [place] [address] Care Team Providers Care Reaming Press Operator Name Role Phone Rico Muñiz MD, Sharan Jaime Primary Care Provider Encounter Details Date Type Department Care Team (Latest Contact Info) Description 06/20/1999 Outpatient Historical [facility] Echocardiography - National [address] [place] [address] X358 Serge Arrington MD [address] [address] Painful respiration (Primary Dx); Precordial pain; Other dyspnea and respiratory abnormality Social History Tobacco Use Types Packs/Day Years Used Date Smoking Tobacco: Never Assessed Comments Unknown Sex and Gender Information Value Date Recorded Sex Assigned at Not on file Legal Sex Female 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
--- OUTSIDE RECORDS SUMMARY | 2025-05-27 10:17 | XMS_ITS | Encounter Summary ---
Author Organization [facility] Address [address] [place] [address] Care Team Providers Care Court Collections Officer Name Role Phone Rico Muñiz MD, Sharan Jaime Primary Care Provider Encounter Details Date Type Department Care Team (Latest Contact Info) Description 04/07/2002 Outpatient Historical [facility] Sharan Gómez Jr., MD [address] [place] [address] ENDOCARDITIS NOS (Primary Dx); DIABETES UNCOMPL ADULT-TYPE II (CMS/HCC); HYPERTENSION NOS; AFTERCARE GERIATRIC ASSISTANT ANTICOAG USE Social History Tobacco Use Types Packs/Day Years Used Date Smoking Tobacco: Never Assessed Comments Unknown Sex and Gender Information Value Date Recorded Sex Assigned at Not on file Legal Sex Female 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 Gender Identity Not on file Sexual Orientation Not on file documented as of this encounter Plan of Treatment Not on file documented as of this encounter Visit Diagnoses Diagnosis Endocarditis, valve unspecified, unspecified cause- Primary Type II or unspecified type diabetes mellitus without mention of complication, not stated as uncontrolled Unspecified essential hypertension parts counterman (current) use of anticoagulants Long-term (current) use of anticoagulants documented in this encounter Care Teams Court Collections Officer Relationship Specialty Start Date End Date Sharan Gómez Jr., MD [address] [place] [address] PCP - General 08/10/05 documented as of this encounter
--- OUTSIDE RECORDS SUMMARY | 2025-05-27 10:17 | XMS_ITS | Encounter Summary ---
Author Organization [facility] Address [address] [place] [address] Care Team Providers Care Manager Of Financial Name Role Phone Rico Muñiz MD, Sharan Jaime Primary Care Provider Encounter Details Date Type Department Care Team (Latest Contact Info) Description 10/01/2000 Outpatient Historical [facility] Sharan Gómez Jr., MD [address] [place] [address] Endocarditis, valve unspecified, unspecified cause (Primary Dx); Other and unspecified hyperlipidemia; Osteoarthrosis, unspecified whether generalized or localized, unspecified site Social History Tobacco Use Types Packs/Day Years Used Date Smoking Tobacco: Never Assessed Comments Unknown Sex and Gender Information Value Date Recorded Sex Assigned at Not on file Legal Sex Female 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
--- OUTSIDE RECORDS SUMMARY | 2025-05-27 10:17 | XMS_ITS | Encounter Summary ---
Author Organization [facility] Address [address] [place] [address] Care Team Providers Care Photographic Process Worker Name Role Phone Rico uMñiz MD, Sharan Jaime Primary Care Provider Encounter Details Date Type Department Care Team (Latest Contact Info) Description 04/12/2001 Outpatient Historical [facility] Sharan Gómez Jr., MD [address] [place] [address] Osteoarthrosis, unspecified whether generalized or localized, unspecified site (Primary Dx); Heart valve replaced by other means; rat exterminator (current) use of anticoagulants Social History Tobacco Use Types Packs/Day Years Used Date Smoking Tobacco: Never Assessed Comments Unknown Sex and Gender Information Value Date Recorded Sex Assigned at Not on file Legal Sex Female 5:42 AM COMPUTER PROGRAMMER CHIEF Gender Identity Not on file Sexual Orientation Not on file documented as of this encounter Plan of Treatment Not on file documented as of this encounter Visit Diagnoses Diagnosis Osteoarthrosis, unspecified whether generalized or localized, unspecified site- Primary Heart valve replaced by other means rat exterminator (current) use of anticoagulants Long-term (current) use of anticoagulants documented in this encounter Care Teams Photographic Process Worker Relationship Specialty Start Date End Date Sharan Gómez Jr., MD [address] [place] [address] PCP - General 08/10/05 documented as of this encounter
--- OUTSIDE RECORDS SUMMARY | 2025-05-27 10:17 | XMS_ITS | Encounter Summary ---
Author Organization [facility] Address [address] [facility] Attn: [place] [address] Care Team Providers Care Vibrator Operator Name Role Phone Rico Muñiz MD, Sharan Jaime Primary Care Provider Encounter Details Date Type Department Care Team (Late st Contact Info) Description 04/07/2002 Outpatient Historical Sharan Gómez Jr., MD [address] [place] [address] Social History Tobacco Use Types Packs/Day Years Used Date Smoking Tobacco: Never Assessed Comments Unknown Sex and Gender Information Value Date Recorded Sex Assigned at Not on file Legal Sex Female 5:42 AM OCEAN EXPORT ACCOUNT MANAGER Gender Identity Not on file Sexual Orientation Not on file documented as of this encounter Plan of Treatment Not on file documented as of this encounter Visit Diagnoses Not on filedocumented in this encounter Care Teams Vibrator Operator Relationship Specialty Start Date End Date Sharan Gómez Jr., MD [address] [place] [address] PCP - General 08/10/05 documented as of this encounter
--- OUTSIDE RECORDS SUMMARY | 2025-05-27 10:17 | XMS_ITS | Encounter Summary ---
Author Organization [facility] Address [address] [place] [address] Care Team Providers Care Vp Software Engineering Name Role Phone Rico Muñiz MD, Sharan Jaime Primary Care Provider Encounter Details Date Type Department Care Team (Latest Contact Info) Description 12/31/2000 Outpatient Historical [facility] [place] [address] [facility] [address] [place] [phone] Larry Olvera MD Screening for malignant neoplasm of the rectum (Primary Dx) Social History Tobacco Use Types Packs/Day Years Used Date Smoking Tobacco: Never Assessed Comments Unknown Sex and Gender Information Value Date Recorded Sex Assigned at Not on file Legal Sex Female 5:42 AM DIRECTOR OPERATIONS BROADCAST Gender Identity Not on file Sexual Orientation Not on file documented as of this encounter Plan of Treatment Not on file documented as of this encounter Visit Diagnoses Diagnosis Screening for malignant neoplasm of the rectum- Primary documented in this encounter Care Teams Vp Software Engineering Relationship Specialty Start Date End Date Sharan Gómez Jr., MD [address] [place] [address] PCP - General 08/10/05 documented as of this encounter
--- OUTSIDE RECORDS SUMMARY | 2025-05-27 10:17 | XMS_ITS | Encounter Summary ---
Author Organization [facility] Address [address] [place] [address] Care Team Providers Care Sales Representative Advertising Name Role Phone Rico Muñiz MD, Sharan Jaime Primary Care Provider Encounter Details Date Type Department Care Team (Late st Contact Info) Description 10/16/[address] [facility] General Laboratory Services [place] [address] [place] [phone] Mtnv, External Provider [address] [facility] [address] [place] [address] Social History Tobacco Use Types Packs/Day Years Used Date Smoking Tobacco: Never Assessed Comments Unknown Sex and Gender Information Value Date Recorded Sex Assigned at Not on file Legal Sex Female 5:42 AM BABBITTER Gender Identity Not on file Sexual Orientation Not on file documented as of this encounter Plan of Treatment Not on file documented as of this encounter Procedures Procedure Name Priority Date/Time Associated Diagnosis Comments PROTIME-INR Routine 10/16/2020 10:20 AM BABBITTER documented in this encounter Results * (ABNORMAL) PROTIME-INR (10/16/2020 10:20 AM BABBITTER) PROTIME 42.0(H) 12.0 - 14.4 Seconds 10/16/2020 12:05 PM BABBITTER [facility] INR 4.7(H) 0.8 - 1.2 10/16/2020 12:05 PM BABBITTER [facility] Blood 10/16/2020 10:2 0 AM BABBITTER 10/16/2020 11:47 AM BABBITTER us External Provider Mtnv HEMATOLOGY ORDERABLES Fin al Result [facility] CLIA # [id number] [address] [place] [id number] documented in this encounter Visit Diagnoses Not on filedocumented in this encounter Care Teams Sales Representative Advertising Relationship Specialty Start Date End Date Sharan Gómez Jr., MD [address] [place] [address] PCP - General 08/10/05 documented as of this encounter
--- OUTSIDE RECORDS SUMMARY | 2025-05-27 10:17 | XMS_ITS | Encounter Summary ---
Author Organization [facility] Address [address] [facility] Attn: [place] [address] Care Team Providers Care Bb Shot Packer Name Role Phone Rico Muñiz MD, Sharan Jaime Primary Care Provider Encounter Details Date Type Department Care Team (Late st Contact Info) Description 12/26/1999 Outpatient Historical Shraan Gómez Jr., MD [address] [place] [address] Social History Tobacco Use Types Packs/Day Years Used Date Smoking Tobacco: Never Assessed Comments Unknown Sex and Gender Information Value Date Recorded Sex Assigned at Not on file Legal Sex Female 5:42 AM BODY CARE MANAGER Gender Identity Not on file Sexual Orientation Not on file documented as of this encounter Plan of Treatment Not on file documented as of this encounter Visit Diagnoses Not on filedocumented in this encounter Care Teams Bb Shot Packer Relationship Specialty Start Date End Date Sharan Gómez Jr., MD [address] [place] [address] PCP - General 08/10/05 documented as of this encounter
--- OUTSIDE RECORDS SUMMARY | 2025-05-27 10:17 | XMS_ITS | Encounter Summary ---
Author Organization [facility] Address [address] [place] [address] Care Team Providers Care Supervisor Food Checkers And Cashiers Name Role Phone Rico Muñiz MD, Sharan Jaime Primary Care Provider Encounter Details Date Type Department Care Team (Latest Contact Info) Description 01/03/2002 Outpatient Historical [facility] Sharan Gómez Jr., MD [address] [place] [address] FLU W RESP MANIFEST NEC (Primary Dx); [facility] ANTICOAG USE Social History Tobacco Use Types Packs/Day Years Used Date Smoking Tobacco: Never Assessed Comments Unknown Sex and Gender Information Value Date Recorded Sex Assigned at Not on file Legal Sex Female 5:42 AM PROGRAMMING DEVELOPMENT PROJECT MANAGER Gender Identity Not on file Sexual Orientation Not on file documented as of this encounter Plan of Treatment Not on file documented as of this encounter Visit Diagnoses Diagnosis Influenza with other respiratory manifestations- Primary terminal supervisor (current) use of anticoagulants Long-term (current) use of anticoagulants documented in this encounter Care Teams Supervisor Food Checkers And Cashiers Relationship Specialty Start Date End Date Sharan Gómez Jr., MD [address] [place] [address] PCP - General 08/10/05 documented as of this encounter
--- OUTSIDE RECORDS SUMMARY | 2025-05-27 10:17 | XMS_ITS | Encounter Summary ---
Author Organization [facility] Address [address] [facility] Attn: [place] [address] Care Team Providers Care Direct Support Professional Home Health Name Role Phone Rico Muñiz MD, Sharan Jaime Primary Care Provider Encounter Details Date Type Department Care Team (Late st Contact Info) Description 06/22/2000 Outpatient Historical Serge Arrington MD [address] [facility] [address] [place] [address] Social History Tobacco Use Types Packs/Day Years Used Date Smoking Tobacco: Never Assessed Comments Unknown Sex and Gender Information Value Date Recorded Sex Assigned at Not on file Legal Sex Female 5:42 AM QUILL CLEANING 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 Gender Identity Not on file Sexual Orientation Not on file documented as of this encounter Plan of Treatment Not on file documented as of this encounter Visit Diagnoses Not on filedocumented in this encounter Care Teams Direct Support Professional Home Health Relationship Specialty Start Date End Date Sharan Gómez Jr., MD [address] [place] [address] PCP - General 08/10/05 documented as of this encounter
--- OUTSIDE RECORDS SUMMARY | 2025-05-27 10:17 | XMS_ITS | Encounter Summary ---
Author Organization [facility] Address [address] [facility] Attn: [place] [address] Care Team Providers Care Executive Housekeeper Name Role Phone Rico Muñiz MD, Sharan Jaime Primary Care Provider Encounter Details Date Type Department Care Team (Late st Contact Info) Description 08/16/2000 Outpatient Historical Sharan Gómez Jr., MD [address] [place] [address] Social History Tobacco Use Types Packs/Day Years Used Date Smoking Tobacco: Never Assessed Comments Unknown Sex and Gender Information Value Date Recorded Sex Assigned at Not on file Legal Sex Female 5:42 AM ANNOUNCER Gender Identity Not on file Sexual Orientation Not on file documented as of this encounter Plan of Treatment Not on file documented as of this encounter Visit Diagnoses Not on filedocumented in this encounter Care Teams Executive Housekeeper Relationship Specialty Start Date End Date Sharan Gómez Jr., MD [address] [place] [address] PCP - General 08/10/05 documented as of this encounter
--- OUTSIDE RECORDS SUMMARY | 2025-05-27 10:17 | XMS_ITS | Encounter Summary ---
Author Organization [facility] Address [address] [place] [address] Care Team Providers Care Finish Photographer Name Role Phone Rico Muñiz MD, Sharan Jaime Primary Care Provider Encounter Details Date Type Department Care Team (Late st Contact Info) Description 10/18/2020 Lab Requisition [facility] Laboratory Services [place] [address] [place] [phone] Tabatha Lynn, [facility] [address] [place] [address] Social History Tobacco Use Types Packs/Day Years Used Date Smoking Tobacco: Never Assessed Comments Unknown Sex and Gender Information Value Date Recorded Sex Assigned at Not on file Legal Sex Female 5:42 AM CYLINDER BLOCK MECHANIC Gender Identity Not on file Sexual Orientation Not on file documented as of this encounter Plan of Treatment Not on file documented as of this encounter Procedures Procedure Name Priority Date/Time Associated Diagnosis Comments PROTIME-INR Routine 10/18/2020 6:34 AM CYLINDER BLOCK MECHANIC documented in this encounter Results * (ABNORMAL) PROTIME-INR (10/18/2020 6:34 AM CYLINDER BLOCK MECHANIC) PROTIME 34.1(H) 11.9 - 15.5 Seconds 10/18/2020 5:19 PM CYLINDER BLOCK MECHANIC [facility] INR 3.2(H) 0.8 - 1.2 10/18/2020 5:19 PM CYLINDER BLOCK MECHANIC [facility] Blood Collection / Unknown 10/18/2020 6:34 AM CYLINDER BLOCK MECHANIC 10/18/2020 4:57 PM CYLINDER BLOCK MECHANIC Narrative [facility] - 10/18/2020 5:19 PM CYLINDER BLOCK MECHANIC Expected Values for INR: DVT/PE Goal INR 2.5; range 2.0 - 3.0 Valve Replacement Tissue Goal INR 2.5; range 2.0 - 3.0 Valve Replacement Mechanical Goal INR 3.0; range 2.5 - 3.5 POST-MT Goal INR 2.5; range 2.0 - 3.0 or Goal INR 3.0; range 2.5 - 3.5 Atrial Fibrillation Goal INR 2.5; range 2.0 - 3.0 Ischemic Stroke Goal INR 2.5; range 2.0 - 3.0 For additional information see Guidelines for Anticoagulation available from the pharmacy Aspen Mitchell, Pharm D. Tabatha Neff CATERPILLAR OPERATOR HEMATOLOGY ORDERABLES Final Result [facility] [address] [place] [address] documented in this encounter Visit Diagnoses Not on filedocumented in this encounter Care Teams Finish Photographer Relationship Specialty Start Date End Date Sharan Gómez Jr., MD [address] [place] [address] PCP - General 08/10/05 documented as of this encounter
--- OUTSIDE RECORDS SUMMARY | 2025-05-27 10:17 | XMS_ITS | Encounter Summary ---
Author Organization [facility] Address [address] [place] [address] Care Team Providers Care Sap Abap Programmer Name Role Phone Rico Muñiz MD, Sharan Jaime Primary Care Provider Encounter Details Date Type Department Care Team (Latest Contact Info) Description 09/12/2000 Outpatient Historical [facility] Sharan Gómez Jr., MD [address] [place] [address] Other and unspecified hyperlipidemia (Primary Dx); Other nonspecific finding on examination of urine; Personal history of other disorder of urinary system; MCFP (current) use of anticoagulants Social History Tobacco Use Types Packs/Day Years Used Date Smoking Tobacco: Never Assessed Comments Unknown Sex and Gender Information Value Date Recorded Sex Assigned at Not on file Legal Sex Female 5:42 AM CALL CENTER SUPPORT REPRESENTATIVE Gender Identity Not on file Sexual Orientation Not on file documented as of this encounter Plan of Treatment Not on file documented as of this encounter Visit Diagnoses Diagnosis Other and unspecified hyperlipidemia- Primary Other nonspecific finding on examination of urine Personal history of other disorder of urinary system MCFP (current) use of anticoagulants Long-term (current) use of anticoagulants documented in this encounter Care Teams Sap Abap Programmer Relationship Specialty Start Date End Date Sharan Gómez Jr., MD [address] [place] [address] PCP - General 08/10/05 documented as of this encounter
--- OUTSIDE RECORDS SUMMARY | 2025-05-27 10:17 | XMS_ITS | Encounter Summary ---
Author Organization [facility] Address [address] [place] [address] Care Team Providers Care Director Teen Post Name Role Phone Rico Muñiz MD, Sharan Jaime Primary Care Provider Encounter Details Date Type Department Care Team (Late st Contact Info) Description 07/26/1999 Outpatient Historical [facility] Cardiology- [place] [address] [place] [phone] [place] [address] [facility] [address] [place] [address] Pain in limb (Primary Dx); Heart valve replaced by other means Social History Tobacco Use Types Packs/Day Years Used Date Smoking Tobacco: Never Assessed Comments Unknown Sex and Gender Information Value Date Recorded Sex Assigned at Not on file Legal Sex Female 5:42 AM FLIGHT DISPATCHER Gender Identity Not on file Sexual Orientation Not on file documented as of this encounter Plan of Treatment Not on file documented as of this encounter Visit Diagnoses Diagnosis Pain in limb- Primary Pain in soft tissues of limb Heart valve replaced by other means documented in this encounter Care Teams Director Teen Post Relationship Specialty Start Date End Date Sharan Gómez Jr., MD [address] [place] [address] PCP - General 08/10/05 documented as of this encounter
--- OUTSIDE RECORDS SUMMARY | 2025-05-27 10:17 | XMS_ITS | Encounter Summary ---
Author Organization [facility] Address [address] [place] [address] Care Team Providers Care Driver Sales Name Role Phone Rico Muñiz MD, Sharan Jaime Primary Care Provider Encounter Details Date Type Department Care Team (Late st Contact Info) Description 07/02/2001 Outpatient Historical [facility] Serge Arrington MD [address] [facility] [address] [place] [address] Encounter for long-term (current) use of other medications (Primary Dx); Unspecified essential hypertension Social History Tobacco Use Types Packs/Day Years Used Date Smoking Tobacco: Never Assessed Comments Unknown Sex and Gender Information Value Date Recorded Sex Assigned at Not on file Legal Sex Female 5:42 AM TREE CLIMBER Gender Identity Not on file Sexual Orientation Not on file documented as of this encounter Plan of Treatment Not on file documented as of this encounter Visit Diagnoses Diagnosis Encounter for long-term (current) use of other medications- Primary Unspecified essential hypertension documented in this encounter Care Teams Driver Sales Relationship Specialty Start Date End Date Sharan Gómez Jr., MD [address] [place] [address] PCP - General 08/10/05 documented as of this encounter
--- OUTSIDE RECORDS SUMMARY | 2025-05-27 10:17 | XMS_ITS | Encounter Summary ---
Author Organization [facility] Address [address] [place] [address] Care Team Providers Care Fish Farmer Name Role Phone Rico Muñiz MD, Sharan Jaime Primary Care Provider Encounter Details Date Type Department Care Team (Latest Contact Info) Description 10/31/2001 Outpatient Historical [facility] Sharan Gómez Jr., MD [address] [place] [address] ATRIAL FIBRILLATION (CMS/HCC) (Primary Dx); AFTERCARE RESIDENTIAL ANTICOAG USE; HEART VALVE REPLAC NEC Social History Tobacco Use Types Packs/Day Years Used Date Smoking Tobacco: Never Assessed Comments Unknown Sex and Gender Information Value Date Recorded Sex Assigned at Not on file Legal Sex Female 5:42 AM COLLEGE DIRECTOR Gender Identity Not on file Sexual Orientation Not on file documented as of this encounter Plan of Treatment Not on file documented as of this encounter Visit Diagnoses Diagnosis Atrial fibrillation (CMS/HCC)- Primary Atrial fibrillation medical terminologist (current) use of anticoagulants Long-term (current) use of anticoagulants Heart valve replaced by other means documented in this encounter Care Teams Fish Farmer Relationship Specialty Start Date End Date Sharan Gómez Jr., MD [address] [place] [address] PCP - General 08/10/05 documented as of this encounter
--- OUTSIDE RECORDS SUMMARY | 2025-05-27 10:17 | XMS_ITS | Encounter Summary ---
Author Organization [facility] Address [address] [place] [address] Care Team Providers Care Physical Chemist Name Role Phone Rico Muñiz MD, Sharan Jaime Primary Care Provider Encounter Details Date Type Department Care Team (Latest Contact Info) Description 08/10/2005 Outpatient Historical [facility]- [place] [address] [facility] [address] [place] [address] Bill Negron MD [address] [place] [address] ABN FIND-STOOL CONTENTS-OCC BLOOD (Primary Dx); INT HEMORRHOID W/O COMPL; ANAL FISSURE Social History Tobacco Use Types Packs/Day Years Used Date Smoking Tobacco: Never Assessed Comments Unknown Sex and Gender Information Value Date Recorded Sex Assigned at Not on file Legal Sex Female 5:42 AM EQUIPMENT SERVICE ENGINEER Gender Identity Not on file Sexual Orientation Not on file documented as of this encounter Plan of Treatment Not on file documented as of this encounter Visit Diagnoses Diagnosis Nonspecific abnormal finding in stool contents- Primary Internal hemorrhoids without mention of complication Anal fissure documented in this encounter Care Teams Physical Chemist Relationship Specialty Start Date End Date Sharan Gómez Jr., MD [address] [place] [address] PCP - General 08/10/05 documented as of this encounter
--- OUTSIDE RECORDS SUMMARY | 2025-05-27 10:17 | XMS_ITS | Encounter Summary ---
Author Organization [facility] Address [address] [place] [address] Care Team Providers Care Supervisor Cigar Processing Name Role Phone Rico Muñiz MD, Sharan Jaime Primary Care Provider Encounter Details Date Type Department Care Team (Latest Contact Info) Description 06/28/2000 Outpatient Historical [facility] Sharan Gómez Jr., MD [address] [place] [address] Pure hypercholesterolem (Primary Dx); Hypopotassemia; Heart valve replaced by other means Social History Tobacco Use Types Packs/Day Years Used Date Smoking Tobacco: Never Assessed Comments Unknown Sex and Gender Information Value Date Recorded Sex Assigned at Not on file Legal Sex Female 5:42 AM FRAUD INVESTIGATOR Gender Identity Not on file Sexual Orientation Not on file documented as of this encounter Plan of Treatment Not on file documented as of this encounter Visit Diagnoses Diagnosis Pure hypercholesterolem- Primary Pure hypercholesterolemia Hypopotassemia Heart valve replaced by other means documented in this encounter Care Teams Supervisor Cigar Processing Relationship Specialty Start Date End Date Sharan Gómez Jr., MD [address] [place] [address] PCP - General 08/10/05 documented as of this encounter
--- OUTSIDE RECORDS SUMMARY | 2025-05-27 10:17 | XMS_ITS | Encounter Summary ---
Author Organization [facility] Address [address] [place] [address] Care Team Providers Care Tool And Equipment Rental Clerk Name Role Phone Rico Muñiz MD, Sharan Jaime Primary Care Provider Encounter Details Date Type Department Care Team (Latest Contact Info) Description 10/10/1999 Outpatient Historical [facility] Sharan Gómez Jr., MD [address] [place] [address] Unspecified circulatory system disorder (Primary Dx); Unspecified essential hypertension; detention (current) use of anticoagulants Social History Tobacco Use Types Packs/Day Years Used Date Smoking Tobacco: Never Assessed Comments Unknown Sex and Gender Information Value Date Recorded Sex Assigned at Not on file Legal Sex Female 5:42 AM TOUR OPERATOR Gender Identity Not on file Sexual Orientation Not on file documented as of this encounter Plan of Treatment Not on file documented as of this encounter Visit Diagnoses Diagnosis Unspecified circulatory system disorder- Primary Unspecified essential hypertension detention (current) use of anticoagulants Long-term (current) use of anticoagulants documented in this encounter Care Teams Tool And Equipment Rental Clerk Relationship Specialty Start Date End Date Sharan Gómez Jr., MD [address] [place] [address] PCP - General 08/10/05 documented as of this encounter
--- OUTSIDE RECORDS SUMMARY | 2025-05-27 10:17 | XMS_ITS | Encounter Summary ---
Author Organization [facility] Address [address] [place] [address] Care Team Providers Care Labor Expediter Name Role Phone Rico Muñiz MD, Sharan Jaime Primary Care Provider Encounter Details Date Type Department Care Team (Late st Contact Info) Description 07/30/2000 Outpatient Historical [facility] Social History Tobacco Use Types Packs/Day Years Used Date Smoking Tobacco: Never Assessed Comments Unknown Sex and Gender Information Value Date Recorded Sex Assigned at Not on file Legal Sex Female 5: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 OPERATIONS ANALYST Gender Identity Not on file Sexual Orientation Not on file documented as of this encounter Plan of Treatment Not on file documented as of this encounter Visit Diagnoses Not on filedocumented in this encounter Care Teams Labor Expediter Relationship Specialty Start Date End Date Sharan Gómez Jr., MD [address] [place] [address] PCP - General 08/10/05 documented as of this encounter
--- OUTSIDE RECORDS SUMMARY | 2025-05-27 10:17 | XMS_ITS | Encounter Summary ---
Author Organization [facility] Address [address] [place] [address] Care Team Providers Care Shorthand Teacher Name Role Phone Rico Muñiz MD, Sharan Jaime Primary Care Provider Encounter Details Date Type Department Care Team (Latest Contact Info) Description 11/09/2000 Outpatient Historical [facility] Sharan Gómez Jr., MD [address] [place] [address] Unspecified essential hypertension (Primary Dx); Pure hypercholesterolem; Endocarditis, valve unspecified, unspecified cause; medical terminologist (current) use of anticoagulants Social History Tobacco Use Types Packs/Day Years Used Date Smoking Tobacco: Never Assessed Comments Unknown Sex and Gender Information Value Date Recorded Sex Assigned at Not on file Legal Sex Female 5:42 AM MECHANISM INSPECTOR Gender Identity Not on file Sexual Orientation Not on file documented as of this encounter Plan of Treatment Not on file documented as of this encounter Visit Diagnoses Diagnosis Unspecified essential hypertension- Primary Pure hypercholesterolem Pure hypercholesterolemia Endocarditis, valve unspecified, unspecified cause medical terminologist (current) use of anticoagulants Long-term (current) use of anticoagulants documented in this encounter Care Teams Shorthand Teacher Relationship Specialty Start Date End Date Sharan Gómez Jr., MD [address] [place] [phone] PCP - General 08/10/05 documented as of this encounter
--- OUTSIDE RECORDS SUMMARY | 2025-05-27 10:17 | XMS_ITS | Encounter Summary ---
Author Organization [facility] Address [address] [facility] Attn: [place] [address] Care Team Providers Care Physics Tutor Name Role Phone Rico Muñiz MD, Sharan Jaime Primary Care Provider Encounter Details Date Type Department Care Team (Late st Contact Info) Description 02/15/2001 Outpatient Historical Sharan Gómez Jr., MD [address] [place] [address] Social History Tobacco Use Types Packs/Day Years Used Date Smoking Tobacco: Never Assessed Comments Unknown Sex and Gender Information Value Date Recorded Sex Assigned at Not on file Legal Sex Female 5:42 AM BLUEPRINT DEVELOPER Gender Identity Not on file Sexual Orientation Not on file documented as of this encounter Plan of Treatment Not on file documented as of this encounter Visit Diagnoses Not on filedocumented in this encounter Care Teams Physics Tutor Relationship Specialty Start Date End Date Sharan Gómez Jr., MD [address] [place] [address] PCP - General 08/10/05 documented as of this encounter
--- OUTSIDE RECORDS SUMMARY | 2025-05-27 10:17 | XMS_ITS | Encounter Summary ---
Author Organization [facility] Address [address] [place] [address] Care Team Providers Care Information Systems Security Manager Name Role Phone Rico Muñiz MD, Sharan Jaime Primary Care Provider Encounter Details Date Type Department Care Team (Late st Contact Info) Description 10/25/2020 Lab Requisition [facility] Laboratory Services [address] [place] [address] Paulina Peterson MD [address] [place] [address] Social History Tobacco Use Types Packs/Day Years Used Date Smoking Tobacco: Never Assessed Comments Unknown Sex and Gender Information Value Date Recorded Sex Assigned at Not on file Legal Sex Female 5:42 AM OVEN LOADER Gender Identity Not on file Sexual Orientation Not on file documented as of this encounter Plan of Treatment Not on file documented as of this encounter Procedures Procedure Name Priority Date/Time Associated Diagnosis Comments PROTIME-INR Routine 10/25/2020 5:18 AM OVEN LOADER documented in this encounter Results * (ABNORMAL) PROTIME-INR (10/25/2020 5:18 AM OVEN LOADER) PROTIME 34.3(H) 11.9 - 15.5 Seconds 10/25/2020 7:01 PM OVEN LOADER [facility] INR 3.3(H) 0.8 - 1.2 10/25/2020 7:01 PM OVEN LOADER [facility] Blood Collection / Unknown 10/25/2020 5:18 AM OVEN LOADER 10/25/2020 6:44 PM OVEN LOADER Narrative [facility] - 10/25/2020 7:01 PM OVEN LOADER Expected Values for INR: DVT/PE Goal INR 2.5; range 2.0 - 3.0 Valve Replacement Tissue Goal INR 2.5; range 2.0 - 3.0 Valve Replacement Mechanical Goal INR 3.0; range 2.5 - 3.5 POST-KS Goal INR 2.5; range 2.0 - 3.0 or Goal INR 3.0; range 2.5 - 3.5 Atrial Fibrillation Goal INR 2.5; range 2.0 - 3.0 Ischemic Stroke Goal INR 2.5; range 2.0 - 3.0 For additional information see Guidelines for Anticoagulation available from the pharmacy [facility] Pharm D. us Paulina Peterson MD HEMATOLOGY ORDERABLES Maame smart Result [facility] [address] [place] [address] documented in this encounter Visit Diagnoses Not on filedocumented in this encounter Care Teams Information Systems Security Manager Relationship Specialty Start Date End Date Sharan Gómez Jr., MD [address] [place] [phone] PCP - General 08/10/05 documented as of this encounter
--- OUTSIDE RECORDS SUMMARY | 2025-05-27 10:17 | XMS_ITS | Encounter Summary ---
Author Organization [facility] Address [address] [place] [address] Care Team Providers Care Ballet Professor Name Role Phone Rico Muñiz MD, Sharan Jaime Primary Care Provider Encounter Details Date Type Department Care Team (Latest Contact Info) Description 06/20/1999 Outpatient Historical [facility] Imaging Services-[facility] [place] [address] [place] [address] Serge Arrington MD [address] [place] [address] Cough (Primary Dx) Social History Tobacco Use Types Packs/Day Years Used Date Smoking Tobacco: Never Assessed Comments Unknown Sex and Gender Information Value Date Recorded Sex Assigned at Not on file Legal Sex Female 5:42 AM SKIMMER Gender Identity Not on file Sexual Orientation Not on file documented as of this encounter Plan of Treatment Not on file documented as of this encounter Visit Diagnoses Diagnosis Cough- Primary documented in this encounter Care Teams Ballet Professor Relationship Specialty Start Date End Date Sharan Gómez Jr., MD [address] [place] [address] PCP - General 08/10/05 documented as of this encounter
--- OUTSIDE RECORDS SUMMARY | 2025-05-27 10:17 | XMS_ITS | Encounter Summary ---
Author Organization [facility] Address [address] [place] [address] Care Team Providers Care Lumber Carrier Name Role Phone Rico Muñiz MD, Sharan Jaime Primary Care Provider Encounter Details Date Type Department Care Team (Latest Contact Info) Description 12/21/2000 Outpatient Historical [facility] Sharan Gómez Jr., MD [address] [place] [address] Pure hypercholesterolem (Primary Dx); Other and unspecified hyperlipidemia; Esophageal reflux; shelter (current) use of anticoagulants Social History Tobacco Use Types Packs/Day Years Used Date Smoking Tobacco: Never Assessed Comments Unknown Sex and Gender Information Value Date Recorded Sex Assigned at Not on file Legal Sex Female 5:42 AM CRIMINAL PSYCHOLOGIST Gender Identity Not on file Sexual Orientation Not on file documented as of this encounter Plan of Treatment Not on file documented as of this encounter Visit Diagnoses Diagnosis Pure hypercholesterolem- Primary Pure hypercholesterolemia Other and unspecified hyperlipidemia Esophageal reflux intermediate accountant (current) use of anticoagulants Long-term (current) use of anticoagulants documented in this encounter Care Teams Lumber Carrier Relationship Specialty Start Date End Date Sharan Gómez Jr., MD [address] [place] [phone] PCP - General 08/10/05 documented as of this encounter
--- OUTSIDE RECORDS SUMMARY | 2025-05-27 10:17 | XMS_ITS | Encounter Summary ---
Author Organization [facility] Address [address] [place] [address] Care Team Providers Care Place Change Roof Bolter Name Role Phone Rico Muñiz MD, Sharan Jaime Primary Care Provider Encounter Details Date Type Department Care Team (Latest Contact Info) Description 01/30/2001 Outpatient Historical [facility] Sharan Gómez Jr., MD [address] [place] [address] Endocarditis, valve unspecified, unspecified cause (Primary Dx); Acute sinusitis, unspecified; Bronchitis, not specified as acute or chronic Social History Tobacco Use Types Packs/Day Years Used Date Smoking Tobacco: Never Assessed Comments Unknown Sex and Gender Information Value Date Recorded Sex Assigned at Not on file Legal Sex Female 5:42 AM REGIONAL EDUCATION MANAGER Gender Identity Not on file Sexual Orientation Not on file documented as of this encounter Plan of Treatment Not on file documented as of this encounter Visit Diagnoses Diagnosis Endocarditis, valve unspecified, unspecified cause- Primary Acute sinusitis, unspecified Bronchitis, not specified as acute or chronic documented in this encounter Care Teams Place Change Roof Bolter Relationship Specialty Start Date End Date Sharan Gómez Jr., MD [address] [place] [address] PCP - General 08/10/05 documented as of this encounter
--- OUTSIDE RECORDS SUMMARY | 2025-05-27 10:17 | XMS_ITS | Encounter Summary ---
Author Organization [facility] Address [address] [place] [address] Care Team Providers Care Stone Product Fabricator Name Role Phone Rico Muñiz MD, Sharan Jaime Primary Care Provider Encounter Details Date Type Department Care Team (Latest Contact Info) Description 02/03/2002 Outpatient Historical [facility] Sharan Gómez Jr., MD [address] [place] [address] HEART VALVE REPLAC NEC (Primary Dx); AFTERCARE STEEL BOX TOE INSERTER ANTICOAG USE Social History Tobacco Use Types Packs/Day Years Used Date Smoking Tobacco: Never Assessed Comments Unknown Sex and Gender Information Value Date Recorded Sex Assigned at Not on file Legal Sex Female 5:42 AM WEB SITE DESIGNER Gender Identity Not on file Sexual Orientation Not on file documented as of this encounter Plan of Treatment Not on file documented as of this encounter Visit Diagnoses Diagnosis Heart valve replaced by other means- Primary supervisor intermediates (current) use of anticoagulants Long-term (current) use of anticoagulants documented in this encounter Care Teams Stone Product Fabricator Relationship Specialty Start Date End Date Sharan Gómez Jr., MD [address] [place] [address] PCP - General 08/10/05 documented as of this encounter
--- OUTSIDE RECORDS SUMMARY | 2025-05-27 10:17 | XMS_ITS | Encounter Summary ---
Author Organization [facility] Address [address] [place] [address] Care Team Providers Care Marketing Segment Manager Name Role Phone Rico Muñiz MD, Sharan Jaime Primary Care Provider Encounter Details Date Type Department Care Team (Latest Contact Info) Description 12/26/1999 Outpatient Historical [facility] Sharan Gómez Jr., MD [address] [place] [address] ASCVD (Primary Dx); Esophageal reflux; Unspecified essential hypertension; marine oil terminal superintendent (current) use of anticoagulants Social History Tobacco Use Types Packs/Day Years Used Date Smoking Tobacco: Never Assessed Comments Unknown Sex and Gender Information Value Date Recorded Sex Assigned at Not on file Legal Sex Female 5:42 AM LANDSCAPING CREW LEADER Gender Identity Not on file Sexual Orientation Not on file documented as of this encounter Plan of Treatment Not on file documented as of this encounter Visit Diagnoses Diagnosis ASCVD- Primary Unspecified cardiovascular disease Esophageal reflux Unspecified essential hypertension marine oil terminal superintendent (current) use of anticoagulants Long-term (current) use of anticoagulants documented in this encounter Care Teams Marketing Segment Manager Relationship Specialty Start Date End Date Sharan Gómez Jr., MD [address] [place] [phone] PCP - General 08/10/05 documented as of this encounter
--- OUTSIDE RECORDS SUMMARY | 2025-05-27 10:17 | XMS_ITS | Encounter Summary ---
Author Organization [facility] Address [address] [place] [address] Care Team Providers Care Body Stylist Name Role Phone Rico Muñiz MD, Sharan Jaime Primary Care Provider Encounter Details Date Type Department Care Team (Late st Contact Info) Description 2020 Lab Requisition [facility] Laboratory Services [address] [place] [phone] Tabatha Lynn, [facility] [address] [place] [address] Social History Tobacco Use Types Packs/Day Years Used Date Smoking Tobacco: Never Assessed Comments Unknown Sex and Gender Information Value Date Recorded Sex Assigned at Not on file Legal Sex Female 5:42 AM MANAGER SUPPLIER Gender Identity Not on file Sexual Orientation Not on file documented as of this encounter Plan of Treatment Not on file documented as of this encounter Procedures Procedure Name Priority Date/Time Associated Diagnosis Comments PROTIME-INR Routine 2020 6:14 AM MANAGER SUPPLIER documented in this encounter Results * (ABNORMAL) PROTIME-INR (2020 6:14 AM MANAGER SUPPLIER) PROTIME 23.0(H) 11.9 - 15.5 Seconds 2020 7:28 PM MANAGER SUPPLIER [facility] INR 2.0(H) 0.8 - 1.2 2020 7:28 PM MANAGER SUPPLIER [facility] Blood Collection / Unknown 2020 6:14 AM MANAGER SUPPLIER 2020 7:05 PM MANAGER SUPPLIER Narrative [facility] - 2020 7:28 PM MANAGER SUPPLIER Expected Values for INR: DVT/PE Goal INR 2.5; range 2.0 - 3.0 Valve Replacement Tissue Goal INR 2.5; range 2.0 - 3.0 Valve Replacement Mechanical Goal INR 3.0; range 2.5 - 3.5 POST-OH Goal INR 2.5; range 2.0 - 3.0 or Goal INR 3.0; range 2.5 - 3.5 Atrial Fibrillation Goal INR 2.5; range 2.0 - 3.0 Ischemic Stroke Goal INR 2.5; range 2.0 - 3.0 For additional information see Guidelines for Anticoagulation available from the pharmacy [facility], Pharm D. Tabatha Neff CHIEF UNDERWRITER HEMATOLOGY ORDERABLES Final Result Performing Organization Address City/State/[facility] Co de Phone Number [facility] [address] [place] [address] documented in this encounter Visit Diagnoses Not on filedocumented in this encounter Care Teams Body Stylist Relationship Specialty Start Date End Date Sharan Gómez Jr., MD [address] [place] [address] PCP - General 08/10/05 documented as of this encounter
--- OUTSIDE RECORDS SUMMARY | 2025-05-27 10:17 | XMS_ITS | Encounter Summary ---
Author Organization [facility] Address [address] [place] [address] Care Team Providers Care Outpatient Scheduler Name Role Phone Rico Muñiz MD, Sharan Jaime Primary Care Provider Encounter Details Date Type Department Care Team (Latest Contact Info) Description 12/20/2001 Outpatient Historical [facility] Sharna Gómez Jr., MD [address] [place] [address] WHEEZING (Primary Dx); HEART VALVE REPLAC NEC; AFTERCARE SHELTER ANTICOAG USE Social History Tobacco Use Types Packs/Day Years Used Date Smoking Tobacco: Never Assessed Comments Unknown Sex and Gender Information Value Date Recorded Sex Assigned at Not on file Legal Sex Female 5:42 AM LAMINATING MACHINE FEEDER Gender Identity Not on file Sexual Orientation Not on file documented as of this encounter Plan of Treatment Not on file documented as of this encounter Visit Diagnoses Diagnosis Wheezing- Primary Heart valve replaced by other means snf (current) use of anticoagulants Long-term (current) use of anticoagulants documented in this encounter Care Teams Outpatient Scheduler Relationship Specialty Start Date End Date Sharan Gómez Jr., MD [address] [facility] [place] [address] PCP - General 08/10/05 documented as of this encounter
--- OUTSIDE RECORDS SUMMARY | 2025-05-27 10:17 | XMS_ITS | Encounter Summary ---
Author Organization [facility] Address [address] [place] [address] Care Team Providers Care Tunnel Drier Operator Name Role Phone Rico Muñiz MD, Sharan Jaime Primary Care Provider Encounter Details Date Type Department Care Team (Latest Contact Info) Description 06/20/1999 Outpatient Historical [facility] [address] [place] [address] Serge Arrington MD [address] [place] [address] Mitral valve disorder (Primary Dx); Unspecified essential hypertension; Other and unspecified hyperlipidemia; Hematuria Social History Tobacco Use Types Packs/Day Years Used Date Smoking Tobacco: Never Assessed Comments Unknown Sex and Gender Information Value Date Recorded Sex Assigned at Not on file Legal Sex Female 5:42 AM DECK SUPERVISOR Gender Identity Not on file Sexual Orientation Not on file documented as of this encounter Plan of Treatment Not on file documented as of this encounter Visit Diagnoses Diagnosis Mitral valve disorder- Primary Mitral valve disorders Unspecified essential hypertension Other and unspecified hyperlipidemia Hematuria documented in this encounter Care Teams Tunnel Drier Operator Relationship Specialty Start Date End Date Sharan Gómez Jr., MD [address] [place] [address] PCP - General 08/10/05 documented as of this encounter
--- OUTSIDE RECORDS SUMMARY | 2025-05-27 10:17 | XMS_ITS | Encounter Summary ---
Author Organization [facility] Address [address] [place] [address] Care Team Providers Care Motor Vehicle Compliance Analyst Name Role Phone Rico Muñiz MD, Sharan Jaime Primary Care Provider Encounter Details Date Type Department Care Team (Latest Contact Info) Description 04/18/1999 Outpatient Historical [facility] Sharan Gómez Jr., MD [address] [place] [address] Headache(784.0) (Primary Dx); Unspecified essential hypertension; senior care (current) use of anticoagulants Social History Tobacco Use Types Packs/Day Years Used Date Smoking Tobacco: Never Assessed Comments Unknown Sex and Gender Information Value Date Recorded Sex Assigned at Not on file Legal Sex Female 5:42 AM CABLE PULLER Gender Identity Not on file Sexual Orientation Not on file documented as of this encounter Plan of Treatment Not on file documented as of this encounter Visit Diagnoses Diagnosis Headache(784.0)- Primary Headache Unspecified essential hypertension terminal gauger (current) use of anticoagulants Long-term (current) use of anticoagulants documented in this encounter Care Teams Motor Vehicle Compliance Analyst Relationship Specialty Start Date End Date Sharan Gómez Jr., MD [address] [place] [address] PCP - General 08/10/05 documented as of this encounter
--- OUTSIDE RECORDS SUMMARY | 2025-05-27 10:17 | XMS_ITS | Encounter Summary ---
Author Organization [facility] Address [address] [place] [address] Care Team Providers Care Hot Dog Vender Name Role Phone Rico Muñiz MD, Sharan Jaime Primary Care Provider Encounter Details Date Type Department Care Team (Latest Contact Info) Description 11/25/1999 Outpatient Historical [facility] Sharan Gómez Jr., MD [address] [place] [address] Epistaxis (Primary Dx); FDC (current) use of anticoagulants Social History Tobacco Use Types Packs/Day Years Used Date Smoking Tobacco: Never Assessed Comments Unknown Sex and Gender Information Value Date Recorded Sex Assigned at Not on file Legal Sex Female 5:42 AM HIGHER LEVEL TEACHING ASSISTANT Gender Identity Not on file Sexual Orientation Not on file documented as of this encounter Plan of Treatment Not on file documented as of this encounter Visit Diagnoses Diagnosis Epistaxis- Primary FDC (current) use of anticoagulants Long-term (current) use of anticoagulants documented in this encounter Care Teams Hot Dog Vender Relationship Specialty Start Date End Date Sharan Gómez Jr., MD [address] [place] [address] PCP - General 08/10/05 documented as of this encounter
--- OUTSIDE RECORDS SUMMARY | 2025-05-27 10:17 | XMS_ITS | Encounter Summary ---
Author Organization [facility] Address [address] [place] [address] Care Team Providers Care Manager Telemetry Name Role Phone Rico Muñiz MD, Sharan Jaime Primary Care Provider Encounter Details Date Type Department Care Team (Latest Contact Info) Description 10/26/1999 Outpatient Historical [facility] Sharan Gómez Jr., MD [address] [place] [address] Endocarditis, valve unspecified, unspecified cause (Primary Dx); Osteoporosis, unspecified Social History Tobacco Use Types Packs/Day Years Used Date Smoking Tobacco: Never Assessed Comments Unknown Sex and Gender Information Value Date Recorded Sex Assigned at Not on file Legal Sex Female 5:42 AM ANTHROPOLOGIST Gender Identity Not on file Sexual Orientation Not on file documented as of this encounter Plan of Treatment Not on file documented as of this encounter Visit Diagnoses Diagnosis Endocarditis, valve unspecified, unspecified cause- Primary Osteoporosis, unspecified documented in this encounter Care Teams Manager Telemetry Relationship Specialty Start Date End Date Sharan Gómez Jr., MD [address] [place] [address] PCP - General 08/10/05 documented as of this encounter
--- OUTSIDE RECORDS SUMMARY | 2025-05-27 10:17 | XMS_ITS | Encounter Summary ---
Author Organization [facility] Address [address] [place] [address] Care Team Providers Care Second Facing Baster Name Role Phone Rico Muñiz MD, Sharan Jaime Primary Care Provider Encounter Details Date Type Department Care Team (Latest Contact Info) Description 08/03/2000 Outpatient Historical [facility] Sharan Gómez Jr., MD [address] [place] [address] Pure hypercholesterolem (Primary Dx); Other and unspecified hyperlipidemia; Dietary surveil/public relations counselor Social History Tobacco Use Types Packs/Day Years Used Date Smoking Tobacco: Never Assessed Comments Unknown Sex and Gender Information Value Date Recorded Sex Assigned at Not on file Legal Sex Female 5:42 AM AUTO RADIATOR SPECIALIST Gender Identity Not on file Sexual Orientation Not on file documented as of this encounter Plan of Treatment Not on file documented as of this encounter Visit Diagnoses Diagnosis Pure hypercholesterolem- Primary Pure hypercholesterolemia Other and unspecified hyperlipidemia Dietary surveil/public relations counselor Dietary surveillance and counseling documented in this encounter Care Teams Second Facing Baster Relationship Specialty Start Date End Date Sharan Gómez Jr., MD [address] [place] [address] PCP - General 08/10/05 documented as of this encounter
--- OUTSIDE RECORDS SUMMARY | 2025-05-27 10:17 | XMS_ITS | Encounter Summary ---
Author Organization [facility] Address [address] [place] [address] Care Team Providers Care Third Rigger Name Role Phone Rico Muñiz MD, Sharan Jaime Primary Care Provider Encounter Details Date Type Department Care Team (Latest Contact Info) Description 11/28/2001 Outpatient Historical [facility] Sharan Gómez Jr., MD [address] [place] [address] URIN TRACT INFECTION NOS (Primary Dx); AFTERCARE HALFWAY ANTICOAG USE Social History Tobacco Use Types Packs/Day Years Used Date Smoking Tobacco: Never Assessed Comments Unknown Sex and Gender Information Value Date Recorded Sex Assigned at Not on file Legal Sex Female 5:42 AM ENGINEERING AGENT Gender Identity Not on file Sexual Orientation Not on file documented as of this encounter Plan of Treatment Not on file documented as of this encounter Visit Diagnoses Diagnosis Urinary tract infection, site not specified- Primary residential (current) use of anticoagulants Long-term (current) use of anticoagulants documented in this encounter Care Teams Third Rigger Relationship Specialty Start Date End Date Sharan Gómez Jr., MD [address] [place] [address] PCP - General 08/10/05 documented as of this encounter
--- OUTSIDE RECORDS SUMMARY | 2025-05-27 10:17 | XMS_ITS | Encounter Summary ---
Author Organization [facility] Address [address] [place] [address] Care Team Providers Care Truck Engine Technician Name Role Phone Rico Muñiz MD, Sharan Jaime Primary Care Provider Encounter Details Date Type Department Care Team (Latest Contact Info) Description 04/01/1999 Outpatient Historical [facility] Sharan Gómez Jr., MD [address] [place] [address] Type II or unspecified type diabetes mellitus without mention of complication, not stated as uncontrolled (Primary Dx); Dietary surveil/counseling center manager Social History Tobacco Use Types Packs/Day Years Used Date Smoking Tobacco: Never Assessed Comments Unknown Sex and Gender Information Value Date Recorded Sex Assigned at Not on file Legal Sex Female 5:42 AM WIPER BLENDER Gender Identity Not on file Sexual Orientation Not on file documented as of this encounter Plan of Treatment Not on file documented as of this encounter Visit Diagnoses Diagnosis Type II or unspecified type diabetes mellitus without mention of complication, not stated as uncontrolled- Primary Dietary surveil/counseling center manager Dietary surveillance and counseling documented in this encounter Care Teams Truck Engine Technician Relationship Specialty Start Date End Date Sharan Gómez Jr., MD [address] [place] [address] PCP - General 08/10/05 documented as of this encounter
--- OUTSIDE RECORDS SUMMARY | 2025-05-27 10:17 | XMS_ITS | Encounter Summary ---
Author Organization [facility] Address [address] [place] [address] Care Team Providers Care Head Baggage Porter Name Role Phone Rico Muñiz MD, Sharan Jaime Primary Care Provider Encounter Details Date Type Department Care Team (Latest Contact Info) Description 07/18/1999 Outpatient Historical [facility] Sharan Gómez Jr., MD [address] [place] [address] Skin sensation disturb (Primary Dx); Headache(784.0); assisted (current) use of anticoagulants Social History Tobacco Use Types Packs/Day Years Used Date Smoking Tobacco: Never Assessed Comments Unknown Sex and Gender Information Value Date Recorded Sex Assigned at Not on file Legal Sex Female 5:42 AM INSTRUCTOR BALLROOM DANCING Gender Identity Not on file Sexual Orientation Not on file documented as of this encounter Plan of Treatment Not on file documented as of this encounter Visit Diagnoses Diagnosis Skin sensation disturb- Primary Disturbance of skin sensation Headache(784.0) Headache assisted (current) use of anticoagulants Long-term (current) use of anticoagulants documented in this encounter Care Teams Head Baggage Porter Relationship Specialty Start Date End Date Sharan Gómez Jr., MD [address] [place] [address] PCP - General 08/10/05 documented as of this encounter
--- OUTSIDE RECORDS SUMMARY | 2025-05-27 10:17 | XMS_ITS | Encounter Summary ---
Author Organization [facility] Address [address] [place] [address] Care Team Providers Care Support Services Specialist Name Role Phone Rico Muñiz MD, Sharan Jaime Primary Care Provider Encounter Details Date Type Department Care Team (Latest Contact Info) Description 08/16/2000 Outpatient Historical [facility] Sharan Gómez Jr., MD [address] [place] [address] Pure hypercholesterolem (Primary Dx); Unspecified essential hypertension; Encounter for long-term (current) use of other medications Social History Tobacco Use Types Packs/Day Years Used Date Smoking Tobacco: Never Assessed Comments Unknown Sex and Gender Information Value Date Recorded Sex Assigned at Not on file Legal Sex Female 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
--- OUTSIDE RECORDS SUMMARY | 2025-05-27 10:17 | XMS_ITS | Encounter Summary ---
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; FAMILY HX-DIABETES MELLITUS Social History Tobacco Use Types Packs/Day Years Used Date Smoking Tobacco: Never Assessed Comments Unknown Sex and Gender Information Value Date Recorded Sex Assigned at Not on file Legal Sex Female 5:42 AM MICROSOFT SOLUTIONS 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 Gender Identity Not on file Sexual Orientation Not on file documented as of this encounter Plan of Treatment Not on file documented as of this encounter Visit Diagnoses Diagnosis Unspecified essential hypertension- Primary Endocarditis, valve unspecified, unspecified cause [facility] (current) use of anticoagulants Long-term (current) use of anticoagulants Family history of diabetes mellitus documented in this encounter Care Teams Director Of Pharmacy Relationship Specialty Start Date End Date Sharan Gómez Jr., MD [address] [place] [phone] PCP - General 08/10/05 documented as of this encounter
--- OUTSIDE RECORDS SUMMARY | 2025-05-27 10:17 | XMS_ITS | Encounter Summary ---
Author Organization [facility] Address [address] [facility] Attn: [place] [address] Care Team Providers Care Clinical Review Nurse Name Role Phone Rico Muñiz MD, Sharan Jaime Primary Care Provider Encounter Details Date Type Department Care Team (Late st Contact Info) Description 01/04/2001 Outpatient Historical Sharan Gómez Jr., MD [address] [place] [address] Social History Tobacco Use Types Packs/Day Years Used Date Smoking Tobacco: Never Assessed Comments Unknown Sex and Gender Information Value Date Recorded Sex Assigned at Not on file Legal Sex Female 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
--- OUTSIDE RECORDS SUMMARY | 2025-05-27 10:17 | XMS_ITS | Encounter Summary ---
Author Organization [facility] Address [address] [place] [address] Care Team Providers Care Museum Or Zoo Director Name Role Phone Rico Muñiz MD, Sharan Jaime Primary Care Provider Encounter Details Date Type Department Care Team (Latest Contact Info) Description 08/10/2005 Outpatient Historical [facility] [address] [place] [address] Bill Negron MD [address] [place] [address] INT HEMORRHOID W/O COMPL (Primary Dx) Social History Tobacco Use Types Packs/Day Years Used Date Smoking Tobacco: Never Assessed Comments Unknown Sex and Gender Information Value Date Recorded Sex Assigned at Not on file Legal Sex Female 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 Gender Identity Not on file Sexual Orientation Not on file documented as of this encounter Plan of Treatment Not on file documented as of this encounter Procedures Procedure Name Priority Date/Time Associated Diagnosis Comments POC PROTIME/INR Routine 08/10/2005 11:51 AM CDT documented in this encounter Results * (ABNORMAL) POC PROTIME/INR (08/10/2005 11:51 AM CDT) PROTIME (I-STAT) 15.9(H) 10.8 - 13.6 sec INTERFACE SYSTEM INR (I-STAT) 1.3 INTERFA CE SYSTEM 08/10/2005 11:5 1 AM CDT us Bill Negron MD POINT OF CARE TESTING Final Re sult INTERFACE SYSTEM Refer to clinic/hospital department documented in this encounter Visit Diagnoses Diagnosis Internal hemorrhoids without mention of complication- Primary documented in this encounter Care Teams Museum Or Zoo Director Relationship Specialty Start Date End Date Sharan Gómez Jr., MD [address] [place] [address] PCP - General 08/10/05 documented as of this encounter
--- OUTSIDE RECORDS SUMMARY | 2025-05-27 10:17 | XMS_ITS | Encounter Summary ---
Author Organization 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
--- OUTSIDE RECORDS SUMMARY | 2025-05-27 10:17 | XMS_ITS | Encounter Summary ---
Author Organization [facility] Address [address] [place] [address] Care Team Providers Care Windows Software Engineer Name Role Phone Rico Muñiz MD, Sharan Jaime Primary Care Provider Encounter Details Date Type Department Care Team (Latest Contact Info) Description 07/06/2006 Outpatient Historical [facility] [address] [place] [address] Jennifer Cash MD NO ADDRESS ON FILE Unspecified Essential Hypertension (Primary Dx); Other and Unspecified Hyperlipidemia; Hypercalcemia; Routine Medical Exam Social History Tobacco Use Types Packs/Day Years Used Date Smoking Tobacco: Never Assessed Comments Unknown Sex and Gender Information Value Date Recorded Sex Assigned at Not on file Legal Sex Female 5:42 AM SOCIAL ECONOMIST Gender Identity Not on file Sexual Orientation Not on file documented as of this encounter Plan of Treatment Not on file documented as of this encounter Visit Diagnoses Diagnosis Unspecified essential hypertension- Primary Other and unspecified hyperlipidemia Hypercalcemia Routine medical exam Routine general medical examination at a health care facility documented in this encounter Care Teams Windows Software Engineer Relationship Specialty Start Date End Date Sharan Gómez Jr., MD [address] [place] [address] PCP - General 08/10/05 documented as of this encounter
--- OUTSIDE RECORDS SUMMARY | 2025-05-27 10:17 | XMS_ITS | Encounter Summary ---
Author Organization [facility] Address [address] [place] [address] Care Team Providers Care Zinc Plating Machine Operator Name Role Phone Rico Muñiz MD, Sharan Jaime Primary Care Provider Encounter Details Date Type Department Care Team (Latest Contact Info) Description 07/06/2006 Outpatient Historical [facility] [place] [address] [place] [address] Jennifer Cash MD NO ADDRESS ON FILE Unspecified Essential Hypertension (Primary Dx); Other Chest Pain Social History Tobacco Use Types Packs/Day Years Used Date Smoking Tobacco: Never Assessed Comments Unknown Sex and Gender Information Value Date Recorded Sex Assigned at Not on file Legal Sex Female 5:42 AM CUSTOMER EXPERT Gender Identity Not on file Sexual Orientation Not on file documented as of this encounter Plan of Treatment Not on file documented as of this encounter Visit Diagnoses Diagnosis Unspecified essential hypertension- Primary Other chest pain documented in this encounter Care Teams Zinc Plating Machine Operator Relationship Specialty Start Date End Date Sharan Gómez Jr., MD [address] [place] [address] PCP - General 08/10/05 documented as of this encounter
--- OUTSIDE RECORDS SUMMARY | 2025-05-27 10:17 | XMS_ITS | Encounter Summary ---
Author Organization [facility] Address [address] [place] [address] Care Team Providers Care Consumer Analyst Name Role Phone Rico Muñiz MD, Sharan Jaime Primary Care Provider Encounter Details Date Type Department Care Team (Latest Contact Info) Description 09/05/2001 Outpatient Historical [facility] Sharan Gómez Jr., MD [address] [place] [address] OSTEOARTHROS NOS-UNSPEC (Primary Dx); OSTEOPOROSIS NOS Social History Tobacco Use Types Packs/Day Years Used Date Smoking Tobacco: Never Assessed Comments Unknown Sex and Gender Information Value Date Recorded Sex Assigned at Not on file Legal Sex Female 5:42 AM 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
--- OUTSIDE RECORDS SUMMARY | 2025-05-27 10:17 | XMS_ITS | Encounter Summary ---
Author Organization 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 Social History Tobacco Use Types Packs/Day Years Used Date Smoking Tobacco: Never Assessed Comments Unknown Sex and Gender Information Value Date Recorded Sex Assigned at Not on file Legal Sex Female 5:42 AM 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
--- OUTSIDE RECORDS SUMMARY | 2025-05-27 10:17 | XMS_ITS | Encounter Summary ---
Author Organization [facility] Address [address] [place] [address] Care Team Providers Care Business Functional Analyst Name Role Phone Rico Muñiz MD, Sharan Jaime Primary Care Provider Encounter Details Date Type Department Care Team (Late st Contact Info) Description 06/21/2000 Outpatient Historical [facility] Serge Arrington MD [address] [facility] [address] [place] [address] Unspecified essential hypertension (Primary Dx); Mitral valve disorder; [facility] (current) use of anticoagulants Social History Tobacco Use Types Packs/Day Years Used Date Smoking Tobacco: Never Assessed Comments Unknown Sex and Gender Information Value Date Recorded Sex Assigned at Not on file Legal Sex Female 5:42 AM DOOR OPENER Gender Identity Not on file Sexual Orientation Not on file documented as of this encounter Plan of Treatment Not on file documented as of this encounter Visit Diagnoses Diagnosis Unspecified essential hypertension- Primary Mitral valve disorder Mitral valve disorders [facility] (current) use of anticoagulants Long-term (current) use of anticoagulants documented in this encounter Care Teams Business Functional Analyst Relationship Specialty Start Date End Date Sharan Gómez Jr., MD [address] [place] [address] PCP - General 08/10/05 documented as of this encounter
--- OUTSIDE RECORDS SUMMARY | 2025-05-27 10:18 | XMS_ITS | Encounter Summary ---
Author Organization [facility] Address [address] [place] [address] Care Team Providers Care Nurse Informaticist Name Role Phone Rico Muñiz MD, Sharan Jaime Primary Care Provider Encounter Details Date Type Department Care Team (Latest Contact Info) Description 06/21/2000 Outpatient Historical [facility] [address] [place] [address] eSrge Arrington MD [address] [place] [address] Mitral valve disorder (Primary Dx); Unspecified essential hypertension; Unspecified gastritis and gastroduodenitis without mention of hemorrhage Social History Tobacco Use Types Packs/Day Years Used Date Smoking Tobacco: Never Assessed Comments Unknown Sex and Gender Information Value Date Recorded Sex Assigned at Not on file Legal Sex Female 5:42 AM 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
--- OUTSIDE RECORDS SUMMARY | 2025-05-27 10:18 | XMS_ITS | Encounter Summary ---
Author Organization [facility] Address [address] [place] [address] Care Team Providers Care Platform Supervisor Name Role Phone Rico Muñiz MD, Sharan Jaime Primary Care Provider Encounter Details Date Type Department Care Team (Latest Contact Info) Description 05/24/2000 Outpatient Historical [facility] Sharan Gómez Jr., MD [address] [place] [address] Unspecified essential hypertension (Primary Dx); Osteoporosis, unspecified Social History Tobacco Use Types Packs/Day Years Used Date Smoking Tobacco: Never Assessed Comments Unknown Sex and Gender Information Value Date Recorded Sex Assigned at Not on file Legal Sex Female 5:42 AM MARBLE SETTER Gender Identity Not on file Sexual Orientation Not on file documented as of this encounter Plan of Treatment Not on file documented as of this encounter Visit Diagnoses Diagnosis Unspecified essential hypertension- Primary Osteoporosis, unspecified documented in this encounter Care Teams Platform Supervisor Relationship Specialty Start Date End Date Sharan Gómez Jr., MD [address] [place] [address] PCP - General 08/10/05 documented as of this encounter
--- OUTSIDE RECORDS SUMMARY | 2025-05-27 10:18 | XMS_ITS | Encounter Summary ---
Author Organization [facility] Address [address] [place] [address] Care Team Providers Care Assistant Manager Retail Name Role Phone Rico Muñiz MD, Sharan Jaime Primary Care Provider Encounter Details Date Type Department Care Team (Latest Contact Info) Description 04/06/2000 Outpatient Historical [facility] Sharan Gómez Jr., MD [address] [place] [address] Symptomatic menopausal or female climacteric states (Primary Dx); Endocarditis, valve unspecified, unspecified cause; care home (current) use of anticoagulants Social History Tobacco [...] as of this encounter Visit Diagnoses Diagnosis Symptomatic menopausal or female climacteric states- Primary Endocarditis, valve unspecified, unspecified cause care home (current) use of anticoagulants Long-term (current) use of anticoagulants documented in this encounter Care Teams Assistant Manager Retail Relationship Specialty Start Date End Date Sharan Gómez Jr., MD [address] [place] [address] PCP - General 08/10/05 documented as of this encounter
--- OUTSIDE RECORDS SUMMARY | 2025-05-27 10:18 | XMS_ITS | Encounter Summary ---
Author Organization [facility] Address [address] [place] [address] Care Team Providers Care Dressmaking Teacher Name Role Phone Rico Muñiz MD, Sharan Jaiem Primary Care Provider Encounter Details Date Type Department Care Team (Latest Contact Info) Description 02/29/2000 Outpatient Historical [facility] Sharan Gómez Jr., MD [address] [place] [address] Pure hypercholesterolem (Primary Dx); Heart valve replaced by other means; Osteoporosis, unspecified; USP (current) use of anticoagulants Social History Tobacco Use Types Packs/Day Years Used Date Smoking Tobacco: Never Assessed Comments Unknown Sex and Gender Information Value Date Recorded Sex Assigned at Not on file Legal Sex Female 5:42 AM CLINICAL PHYSICIAN ASSISTANT Gender Identity Not on file Sexual Orientation Not on file documented as of this encounter Plan of Treatment Not on file documented as of this encounter Visit Diagnoses Diagnosis Pure hypercholesterolem- Primary Pure hypercholesterolemia Heart valve replaced by other means Osteoporosis, unspecified terminal make up operator (current) use of anticoagulants Long-term (current) use of anticoagulants documented in this encounter Care Teams Dressmaking Teacher Relationship Specialty Start Date End Date Sharan Gómez Jr., MD [address] [place] [address] PCP - General 08/10/05 documented as of this encounter
--- OUTSIDE RECORDS SUMMARY | 2025-05-27 10:18 | XMS_ITS | Encounter Summary ---
Author Organization [facility] Address [address] [place] [address] Care Team Providers Care Trench Trimmer Fine Name Role Phone Rico Muñiz MD, Sharan Jaime Primary Care Provider Encounter Details Date Type Department Care Team (Latest Contact Info) Description 01/25/2000 Outpatient Historical [facility] Sharan Gómez Jr., MD [address] [place] [address] Obesity, unspecified (Primary Dx); Heart valve replaced by other means; Unspecified essential hypertension; senior care (current) use of anticoagulants Social History Tobacco Use Types Packs/Day Years Used Date Smoking Tobacco: Never Assessed Comments Unknown Sex and Gender Information Value Date Recorded Sex Assigned at Not on file Legal Sex Female 5:42 AM TAPE FASTENER 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
[2025-05-27 10:21] VITALS: BP 128/65; PULSE 90; RESP 16; TEMP 36.7; O2SAT 95
[2025-05-27 10:40] LABS: Hematocrit 37.1 % (36-47); Hemoglobin 12.00 g/dL (11.27-16.99); Mean Corpuscular HGB Conc 32.3 g/dL (30-55); Mean Corpuscular Hemoglobin 34.4 pg (27-33); Mean Corpuscular Volume 106.3 fl (85-98); Nucleated Red Blood Cells % 0 %; Platelet Count 225 10^3/cmm (157-399); Red Blood Count 3.49 10^6/uL (3.85-5.65); White Blood Count 5.73 10^3/uL (3.29-11.43)
--- NOTE | 2025-05-27 10:43 | XR_ITS ---
WS: [id number] KUB, AP view, 05/27/2025 Clinical Data: abd pain Comparison: KUB, 10/28/2024. Findings: No abnormal intraabdominal masses or calcifications are seen. There is no dilatated small bowel or evidence of obstruction. There is fecal material throughout the colon. There are cholecystectomy clips in the right upper quadrant. There is a levoscoliosis. XR/XR KUB [id number] Impression: Moderate fecal material in the colon.
[2025-05-27 10:44] VITALS: BP 128/78; PULSE 86; RESP 16; O2SAT 94
--- NOTE | 2025-05-27 10:51 | W.ED.ABDPA2 ---
HPI - Abdominal Pain General: Chief Complaint: Abdominal Pain Stated Complaint: abd pain Time Seen by Provider: 05/27/25 10:26 Source: patient Mode of arrival: ambulatory Limitations: no limitations History of Present Illness: 74-year-old female states she has been having right lower quadrant pain has been going on for over a month has an inguinal hernia she states that pain is right over the hernia hernia is easily reduced she denies any vomiting denies any constipation rates her pain a 6 out of 10 currently. It is worse with palpation Associated Symptoms: Denies chills, diarrhea, fever(s), nausea and vomiting Related Data Home Medications ?Medication ?Instructions ?Recorded ?Confirmed nitroglycerin 0.4 mg sublingual 0.4 mg sublingual Q5M PRN chest 11/07/19 05/06/25 tablet (Nitrostat) pains levothyroxine 75 mcg tablet 75 mcg PO DAILY@0700 hypothyroidism 11/11/20 05/06/25 (Euthyrox) tramadol 50 mg tablet 50 mg PO Q6H PRN Pain 11/11/20 05/06/25 potassium chloride 20 mEq 20 meq PO BID@0700,1900 12/22/20 05/06/25 tablet,extended release meclizine 12.5 mg tablet 12.5 mg PO Q6H PRN nausea and 04/19/21 05/06/25 vomiting bismuth subsalicylate 525 mg/15 mL 525 mg PO Q8H PRN Stomach Upset 08/15/21 05/06/25 oral suspension (Pepto-Bismol Max St) mirtazapine 15 mg tablet 15 mg PO DAILY 05/21/24 05/06/25 acetaminophen 325 mg capsule 500 mg PO Q8H Pain 12/05/24 05/06/25 pantoprazole 40 mg tablet,delayed 40 mg PO DAILY 12/05/24 05/06/25 release amiodarone 200 mg tablet 200 mg PO PRN PRN if blood 01/31/25 05/06/25 pressure is over 120 cetirizine 10 mg tablet (Zyrtec) 10 mg PO PRN PRN Allergy Symptoms 01/31/25 05/06/25 hydroxyzine HCl 25 mg tablet 25 mg PO TID PRN Anxiety 01/31/25 05/06/25 ipratropium bromide 42 mcg (0.06 2 spray intranasal TID 01/31/25 05/06/25 %) nasal spray magnesium hydroxide 400 mg/5 mL 30 ml PO PRN PRN bowel movemaent 01/31/25 05/06/25 oral suspension (Milk of Magnesia) mecobalamin (vitamin B12) 1,000 1,000 mcg PO DAILY 01/31/25 05/06/25 mcg chewable tablet (B12 Active) polyethylene glycol 3350 17 4 g PO DAILY PRN Constipation 01/31/25 05/06/25 gram/dose oral powder (Miralax) warfarin 2.5 mg tablet 2.5 mg PO DAILY 01/31/25 05/06/25 Held on 04/22/25. Instructions: Resume on 04/26/25. Previous Rx's ?Medication ?Instructions ?Recorded furosemide 40 mg tablet 60 mg (1.5 x 40 mg) PO DAILY@0700 05/18/23 edema #135 tabs metoprolol tartrate 100 mg tablet 100 mg PO BID #180 tabs 12/05/24 spironolactone 25 mg tablet 25 mg PO DAILY #90 tabs 03/03/25 galantamine 8 mg 24 hr 8 mg PO QAM 90 days #90 caps 05/06/25 capsule,extended release memantine 5 mg tablet 5 mg PO BID #180 tabs 05/06/25 naproxen 500 mg tablet (Naprosyn) 500 mg PO BID PRN pain #20 tabs 05/27/25 ondansetron 4 mg disintegrating 4 mg PO Q6H PRN nausea and 05/27/25 tablet vomiting #14 tabs Allergies Allergy/AdvReac Type Severity Reaction Status Date / Time diltiazem (From Cardizem) Allergy Unknown Verified 05/06/25 13:16 morphine Allergy Unknown Verified 05/06/25 13:16 Review of Systems Const: Denies: fever(s), chills, body aches or change in appetite ENMT: Denies: throat pain or dental pain Card: Denies: chest pain Resp: Denies: dyspnea GI: Reports: abdominal pain; Denies: nausea, vomiting or diarrhea Musc: Denies: neck pain or back pain Skin/Breast: Denies: rash Neuro: Denies: headache(s) PFSH ED PFSH: Medical History Chronic anxiety History of iron deficiency anemia Alzheimer disease CKD (chronic kidney disease) stage 2, GFR 60-89 ml/min Hypertension CAD (coronary artery disease) CHF (congestive heart failure) Insomnia Hypothyroid Hyperlipidemia Chronic neck and back pain GERD (gastroesophageal reflux disease) Chronic atrial fibrillation Chronic constipation Surgical History History of heart artery stent Coronary angioplasty/stent placement in 2011 and in 2012 Hx of colonoscopy 2017 H/O esophagogastroduodenoscopy 2011, 2016, and 2018 S/P cholecystectomy H/O section Mitral valve replaced valve replacement 1994 Family History Other CAD (coronary artery disease) Diabetes Social History Smoking and tobacco/nicotine status: never used tobacco/nicotine Alcohol intake: never Substance/Drug Use: never Housing: Assisted Living Facility Marital status: Single Number of children: 1 Current occupational status: disabled Current gender identity: Female Female Reproductive History: Para: 1 Physical Exam Const: COMMON NORMALS: no acute distress, patient oriented x3 and healthy appearing HENMT: COMMON NORMALS: normocephalic and atraumatic HEAD & SCALP: normocephalic and atraumatic Eye: COMMON NORMALS: conjunctivae normal CONJUNCTIVA: Yes conjunctivae normal Neck/C-Spine: COMMON NORMALS: full ROM and supple Chest: COMMONS NORMALS: normal inspection of the chest Resp: COMMON NORMALS: normal respiratory effort Cardio: COMMON NORMALS: regular rate, regular rhythm and No murmurs present (Cardio) RATE: regular rate RHYTHM: regular rhythm GI: COMMON NORMALS: Soft to palpation, non-tender and no masses PALPATION: Yes Soft to palpation OTHER: Inguinal hernia noted right lower quadrant easily reduced Extremity: COMMON NORMALS: normal to inspection and full ROM Neuro: COMMON NORMALS: patient oriented x3, moves all extremities and no focal motor deficits Psych: COMMON NORMALS: mental status grossly normal, Normal thought process present and cooperative THOUGHT PROCESS: Normal thought process present Skin: COMMON NORMALS: no rashes or lesions noted and no wounds GENERAL SKIN EXAM: no rashes or lesions noted Course Vital Signs: Vital signs: Vital Signs Temperature 98.1 F 05/27/25 10:21 Pulse Rate 86 05/27/25 10:44 Respiratory Rate 16 05/27/25 10:44 Blood Pressure 135/91 05/27/25 11:10 Pulse Oximetry 95 05/27/25 11:10 MDM - Abdominal Pain Medical Decision Making Patient presents here with abdominal pain likely from her inguinal hernia her exam here is benign hernia is easily reduced no signs of incarceration blood work was normal no signs of bowel obstruction we will get her surgery follow-up she stable for discharge return if worsening. Medical Records I reviewed the patient's medical records. Lab Data I reviewed the patient's lab results. 05/27/25 10:24 05/27/25 10:24 Labs/Radiology: Radiology Impressions KUB X-Ray 05/27/25 10:43 Impression: Moderate fecal material in the colon. Laboratory Results WBC 5.73 10^3/uL (3.29-11.43) 05/27/25 10:24 RBC 3.49 10^6/uL (3.85-5.65) L 05/27/25 10:24 Hgb 12.00 g/dL (11.27-16.99) 05/27/25 10:24 Hct 37.1 % (36-47) 05/27/25 10:24 MCV 106.3 fl (85-98) H 05/27/25 10:24 MCH 34.4 pg (27-33) H 05/27/25 10:24 MCHC 32.3 g/dL (30-55) 05/27/25 10:24 RDW 12.5 % (12.1-15.1) 05/27/25 10:24 Plt Count 225 10^3/cmm (157-399) 05/27/25 10:24 MPV 9.5 fL (7.4-10.4) 05/27/25 10:24 Neut % (Auto) 60.9 % 05/27/25 10:24 Lymph % (Auto) 22.7 % 05/27/25 10:24 Pacific % (Auto) 10.3 % 05/27/25 10:24 Eos % (Auto) 4.5 % 05/27/25 10:24 Baso % (Auto) 1.4 % 05/27/25 10:24 Neut # (Auto) 3.49 10^3/uL (1.8-7.7) 05/27/25 10:24 Lymph # (Auto) 1.3 10^3/uL (0.8-4.8) 05/27/25 10:24 Pacific # (Auto) 0.6 10^3/uL (0.2-0.9) 05/27/25 10:24 Eos # (Auto) 0.3 10^3/uL (0.0-0.8) 05/27/25 10:24 Baso # (Auto) 0.1 10^3/uL (0.0-0.1) 05/27/25 10:24 Nucleated RBC % (auto) 0 % 05/27/25 10:24 Nucleated RBCs # 0.0 /100WBC 05/27/25 10:24 Sodium 141 mmol/L (136-145) 05/27/25 10:24 Potassium 4.8 mmol/L (3.5-5.1) 05/27/25 10:24 Chloride 104 mmol/L (98-107) 05/27/25 10:24 Carbon Dioxide 28 mmol/L (22-29) 05/27/25 10:24 Anion Gap 13.8 (5-19) 05/27/25 10:24 BUN 18 mg/dL (8-23) 05/27/25 10:24 Creatinine 1.0 mg/dL (0.5-0.9) H 05/27/25 10:24 GFR Calculation Not Reportable 05/27/25 10:24 Glucose 105 mg/dL (65-115) 05/27/25 10:24 Calculated Osmolality 294 mOsm/kg (285-295) 05/27/25 10:24 Calcium 10.5 mg/dL (8.5-10.5) 05/27/25 10:24 Total Bilirubin 0.6 mg/dL (0.15-1.2) 05/27/25 10:24 AST 19 U/L (0-32) 05/27/25 10:24 ALT 10 U/L (0-33) 05/27/25 10:24 Alkaline Phosphatase 95 U/L (35-105) 05/27/25 10:24 Total Protein 7.4 g/dL (6.6-8.7) 05/27/25 10:24 Albumin 4.4 g/dL (3.5-5.2) 05/27/25 10:24 Globulin 3.0 g/dL (1.3-4.6) 05/27/25 10:24 Lipase 66 U/L (13-60) H 05/27/25 10:24 Urine Color Yellow (Yellow) 05/27/25 10:52 Urine Appearance Clear (CLEAR) 05/27/25 10:52 Urine pH 5.5 (5-7) 05/27/25 10:52 Ur Specific Goodell 1.009 (1.005-1.030) 05/27/25 10:52 Urine Protein Negative (Negative) 05/27/25 10:52 Urine Glucose (UA) Negative (Normal) 05/27/25 10:52 Urine Ketones Negative (Negative) 05/27/25 10:52 Urine Blood Negative (Negative) 05/27/25 10:52 Urine Nitrate Negative (Negative) 05/27/25 10:52 Urine Bilirubin Negative (Negative) 05/27/25 10:52 Urine Urobilinogen 1.0 mg/dL (Negative) 05/27/25 10:52 Ur Leukocyte Esterase 1+ (Negative) A 05/27/25 10:52 Urine RBC 0-2 /hpf (0-2) 05/27/25 10:52 Urine WBC 0-5 /hpf (0-5) 05/27/25 10:52 Ur Squamous Epith Cells 0-5 /hpf (0-5) 05/27/25 10:52 Amorphous Sediment Not Reportable 05/27/25 10:52 Urine Bacteria None seen /hpf (NONE) 05/27/25 10:52 Hyaline Casts 4.52 /lpf 05/27/25 10:52 All radiology interpretation(s) finalized by discharge Discharge Plan Discharge Patient Disposition: Home Clinical Impression: Hernia, inguinal, right Condition: Stable Prescriptions: New ondansetron 4 mg tablet,disintegrating 4 mg PO Q6H PRN (Reason: nausea and vomiting) Qty: 14 0RF naproxen [Naprosyn] 500 mg tablet 500 mg PO BID PRN (Reason: pain) Qty: 20 0RF No Action nitroglycerin [Nitrostat] 0.4 mg tablet, sublingual 0.4 mg SUBLINGUAL Q5M PRN (Reason: chest pains) Pepto-Bismol Max St 525 mg/15 mL suspension 525 mg PO Q8H PRN (Reason: Stomach Upset) Rx Instructions: do not exceed 8 doses in a 24 hour period acetaminophen 325 mg capsule 500 mg PO Q8H meclizine 12.5 mg tablet 12.5 mg PO Q6H PRN (Reason: nausea and vomiting ) potassium chloride 20 mEq tablet extended release 20 meq PO BID@0700,1900 mirtazapine 15 mg tablet 15 mg PO DAILY metoprolol tartrate 100 mg tablet 100 mg PO BID Qty: 180 3RF furosemide 40 mg tablet 60 mg PO DAILY@0700 Qty: 135 0RF spironolactone 25 mg tablet 25 mg PO DAILY Qty: 90 3RF galantamine 8 mg capsule,ext rel. pellets 24 hr 8 mg PO QAM 90 Days Qty: 90 3RF Rx Instructions: TAKE ONE CAPSULE BY MOUTH EVERY DAY WITH BREAKFAST ONLY FOR ALZHEIMERS memantine 5 mg tablet 5 mg PO BID Qty: 180 3RF tramadol 50 mg Tablet 50 mg PO Q6H PRN (Reason: Pain) levothyroxine [Euthyrox] 75 mcg tablet 75 mcg PO DAILY@0700 pantoprazole 40 mg tablet,delayed release (DR/EC) 40 mg PO DAILY cetirizine [Zyrtec] 10 mg Tablet 10 mg PO PRN PRN (Reason: Allergy Symptoms) warfarin 2.5 mg tablet 2.5 mg PO DAILY hydroxyzine HCl 25 mg tablet 25 mg PO TID PRN (Reason: Anxiety) polyethylene glycol 3350 [Miralax] 17 gram/dose Powder 4 g PO DAILY PRN (Reason: Constipation) ipratropium bromide 42 mcg (0.06 %) spray,non-aerosol 2 spray INTRANASAL TID mecobalamin (vitamin B12) [B12 Active] 1,000 mcg Tablet,Chewable 1,000 mcg PO DAILY magnesium hydroxide [Milk of Magnesia] 400 mg/5 mL Suspension 30 ml PO PRN PRN (Reason: bowel movemaent ) amiodarone 200 mg tablet 200 mg PO PRN PRN (Reason: if blood pressure is over 120) Discharge Orders: Discharge ED (Routine); Ordered 05/27/25 Ordered By: Piyush Foster Referrals: Esau Lewis MD [Physician, General Surgery] - 4-7 days Danny Marmolejo MD [Primary Care Provider, Family Practice] Discharge Diet: Advance as tolerated Discharge Activity: Resume usual activity Patient Instructions: Inguinal Hernia (ED) Print Language: Ukrainian Coding Level of Care Code ED Supervisor Accounting Clerks for Indra Carmona
[2025-05-27] MEDS: HYDROcodone-acetaminophen 5-325 mg Tablet 1 TAB PO (10:57)
[2025-05-27 11:00] LABS: Glucose Urine UA Negative (Normal); Nitrate Urine Negative (Negative); Specific Gravity, Urine 1.009 (1.005-1.030)
[2025-05-27 11:00] LABS: Alanine Aminotransferase 10 U/L (0-33); Albumin Level 4.4 g/dL (3.5-5.2); Alkaline Phosphatase 95 U/L (35-105); Aspartate Amino Transferase 19 U/L (0-32); Blood Urea Nitrogen 18 mg/dL (8-23); Calcium 10.5 mg/dL (8.5-10.5); Carbon Dioxide 28 mmol/L (22-29); Chloride 104 mmol/L (98-107); Creatinine Clr Calc Pharmacy 43.5333; Globulin 3.0 g/dL (1.3-4.6); Glucose 105 mg/dL (65-115); Lipase 66 U/L (13-60); Osmolality Calculated 294 mOsm/kg (285-295); Sodium 141 mmol/L (136-145); Total Protein 7.4 g/dL (6.6-8.7)
[2025-05-27 11:01] LABS: Anion Gap 13.8 (5-19); Potassium 4.8 mmol/L (3.5-5.1)
[2025-05-27 11:02] LABS: Add Urine Microscopic? YES
[2025-05-27 11:10] VITALS: BP 135/91; O2SAT 95
[2025-05-27 11:30] VITALS: BP 135/91; PULSE 70; RESP 18; O2SAT 92
--- NOTE | 2025-05-28 11:16 | PC.NURSE ---
General Surgery referral sent.
== END 2025-05-27 11:31 | disposition home or self-care (01) ==
PROVIDERS: Emergency Provider Emergency Medicine; PCP Family Medicine
DX: K40.90 Unilateral inguinal hernia, without obstruction or gangrene, not specified as recurrent (principal); Z79.01 Long term (current) use of anticoagulants; I25.10 Atherosclerotic heart disease of native coronary artery without angina pectoris; E78.5 Hyperlipidemia, unspecified; I13.10 Hypertensive heart and chronic kidney disease without heart failure, with stage 1 through stage 4 chronic kidney disease, or unspecified chronic kidney disease; N18.2 Chronic kidney disease, stage 2 (mild)
CPT/HCPCS: 36415; 74018; 80053; 81001; 83690; 85025; 99284; J9999

== ENCOUNTER 2025-05-29 05:00 | Outpatient (RCR) | payer MEDICARE, MEDICAID, SELFPAY | END 2025-06-28 23:59 | disposition home or self-care (01) | LOC: SPT 05:00 | PROVIDERS: PCP Family Medicine; Visit Provider Specialist | DX: M41.20 Other idiopathic scoliosis, site unspecified (principal) | CPT/HCPCS: 97110 ==

== ENCOUNTER → 2025-06-22 11:33 | Outpatient (BNVA) | payer MEDICARE, MEDICAID, SELFPAY | PROVIDERS: PCP Family Medicine; Visit Provider Internal Medicine Cardiovascular Disease | DX: R07.9 Chest pain, unspecified (principal) | CPT/HCPCS: 93005 ==

== ENCOUNTER → 2025-06-23 10:01 | Outpatient (BNVA) | payer MEDICARE, MEDICAID, SELFPAY | PROVIDERS: PCP Family Medicine; Visit Provider Surgery | DX: K40.90 Unilateral inguinal hernia, without obstruction or gangrene, not specified as recurrent (principal) | CPT/HCPCS: 99214 ==

== ENCOUNTER 2025-06-25 06:19 | Inpatient (IN) | payer MEDICARE, MEDICAID, SELFPAY ==
[2025-06-25] VITALS (9 sets, daily range): BP systolic 103–133; BP diastolic 63–86; PULSE 71–101; RESP 15–18; TEMP 36.8; O2SAT 94–96; BMI 27.8
--- OUTSIDE RECORDS SUMMARY | 2025-06-25 06:24 | XMS_ITS | Encounter Summary ---
Author Organization [facility] Address [address] [place] [address] Care Team Providers Care Clip Baker Name Role Phone Rico Muñiz MD, Sharan Jaime Primary Care Provider Encounter Details Date Type Department Care Team (Latest Contact Info) Description 10/27/1998 Outpatient Historical [facility] Sharan Gómez Jr., MD [address] [place] [address] Unspecified essential hypertension (Primary Dx); Chest pain, unspecified; Pneumonia, organism unspecified(486) Social History Tobacco Use Types Packs/Day Years Used Date Smoking Tobacco: Never Assessed Comments Unknown Sex and Gender Information Value Date Recorded Sex Assigned at Not on file 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
--- OUTSIDE RECORDS SUMMARY | 2025-06-25 06:24 | XMS_ITS | Encounter Summary ---
Author Organization [facility] Address [address] [place] [address] Care Team Providers Care Tea Room Manager Name Role Phone Rico Muñiz MD, Sharan Jaime Primary Care Provider Encounter Details Date Type Department Care Team (Latest Contact Info) Description 11/05/2006 Outpatient Historical [facility] Int Luis AFaisal Lopez [address] [place] [phone] Serge Arrington MD [address] [place] [address] Mitral Valve Disorder (Primary Dx); Unspecified Essential Hypertension; Other and Unspecified Hyperlipidemia Social History Tobacco Use Types Packs/Day Years Used Date Smoking Tobacco: Never Assessed Comments Unknown Sex and Gender Information Value Date Recorded Sex Assigned at Not on file 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
--- OUTSIDE RECORDS SUMMARY | 2025-06-25 06:24 | XMS_ITS | Encounter Summary ---
Author Organization [facility] Address [address] [place] [address] Care Team Providers Care On Air Talent Name Role Phone Rico Muñiz MD, Sharan Jaime Primary Care Provider Encounter Details Date Type Department Care Team (Latest Contact Info) Description 06/26/2003 Outpatient Historical [facility] Int [facility] John [address] [place] [phone] Serge Arrington MD [address] [place] [address] Mitral valve disorder (Primary Dx); HYPERTENSION NOS; HYPERLIPIDEMIA NEC/NOS; VACCINE FOR STREP PNEUMONIAE Social History Tobacco Use Types Packs/Day Years Used Date Smoking Tobacco: Never Assessed Comments Unknown Sex and Gender Information Value Date Recorded Sex Assigned at Not on file 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
--- OUTSIDE RECORDS SUMMARY | 2025-06-25 06:24 | XMS_ITS | Encounter Summary ---
Author Organization [facility] Address [address] [place] [address] Care Team Providers Care Kicking Machine Operator Name Role Phone Rico Muñiz MD, Sharan Jaime Primary Care Provider Encounter Details Date Type Department Care Team (Latest Contact Info) Description 02/16/1999 Outpatient Historical [facility] Sharan Gómez Jr., MD [address] [place] [address] Unspecified essential hypertension (Primary Dx); shelter (current) use of anticoagulants Social History Tobacco Use Types Packs/Day Years Used Date Smoking Tobacco: Never Assessed Comments Unknown Sex and Gender Information Value Date Recorded Sex Assigned at Not on file 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
--- OUTSIDE RECORDS SUMMARY | 2025-06-25 06:24 | XMS_ITS | Encounter Summary ---
Author Organization [facility] Address [address] [place] [address] Care Team Providers Care Natural Resources Specialist Name Role Phone Rico Muñiz MD, Sharan Jaime Primary Care Provider Encounter Details Date Type Department Care Team (Latest Contact Info) Description 08/06/2006 Outpatient Historical [facility] Int Luis AFaisal Lopez [address] [place] [phone] Serge Arrington MD [address] [place] [address] Mitral Valve Disorder (Primary Dx); Other and Unspecified Hyperlipidemia; Screening for Malignant Neoplasm of the Cervix Social History Tobacco Use Types Packs/Day Years Used Date Smoking Tobacco: Never Assessed Comments Unknown Sex and Gender Information Value Date Recorded Sex Assigned at Not on file 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
--- OUTSIDE RECORDS SUMMARY | 2025-06-25 06:24 | XMS_ITS | Encounter Summary ---
Author Organization [facility] Address [address] [place] [address] Care Team Providers Care Any Commodity Buyer Name Role Phone Rico Muñiz MD, Sharan Jaime Primary Care Provider Encounter Details Date Type Department Care Team (Late st Contact Info) Description 10/14/2020 Lab Requisition [facility] [address] [place] [phone] Paulina Peterson MD [address] [place] [address] Social History Tobacco Use Types Packs/Day Years Used Date Smoking Tobacco: Never Assessed Comments Unknown Sex and Gender Information Value Date Recorded Sex Assigned at Not on file Legal Sex Female 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 Gender Identity Not on file Sexual Orientation Not on file documented as of this encounter Plan of Treatment Not on file documented as of this encounter Procedures Procedure Name Priority Date/Time Associated Diagnosis Comments PROTIME-INR Routine 10/14/2020 6:16 AM 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 documented in this encounter Results * (ABNORMAL) PROTIME-INR (10/14/2020 6:16 AM 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) PROTIME 43.3(H) 11.9 - 15.5 Seconds 10/14/2020 4:10 PM 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 [facility] INR 4.4(H) 0.8 - 1.2 10/14/2020 4:10 PM 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 [facility] Blood Collection / Unknown 10/14/2020 6:16 AM 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 10/14/2020 3:45 PM 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 Narrative [facility] - 10/14/2020 4:10 PM 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 Expected Values for INR: DVT/PE Goal INR 2.5; range 2.0 - 3.0 Valve Replacement Tissue Goal INR 2.5; range 2.0 - 3.0 Valve Replacement Mechanical Goal INR 3.0; range 2.5 - 3.5 POST-GA Goal INR 2.5; range 2.0 - 3.0 or Goal INR 3.0; range 2.5 - 3.5 Atrial Fibrillation Goal INR 2.5; range 2.0 - 3.0 Ischemic Stroke Goal INR 2.5; range 2.0 - 3.0 For additional information see Guidelines for Anticoagulation available from the pharmacy [facility] Paulina Peterson MD HEMATOLOGY ORDERABLES [facility] smart Result [facility] [address] [place] [address] documented in this encounter Visit Diagnoses Not on filedocumented in this encounter Care Teams Any Commodity Buyer Relationship Specialty Start Date End Date Sharan Gómez Jr., MD [address] [place] [phone] PCP - General 08/10/05 documented as of this encounter
--- OUTSIDE RECORDS SUMMARY | 2025-06-25 06:24 | XMS_ITS | Encounter Summary ---
Author Organization [facility] Address [address] [place] [address] Care Team Providers Care Handling Tech Name Role Phone Rico Muñiz MD, Sharan Jaime Primary Care Provider Encounter Details Date Type Department Care Team (Latest Contact Info) Description 04/23/2002 Outpatient Historical [facility] Sharan Gómez Jr., MD [address] [place] [address] Pure hypercholesterolem (Primary Dx); HYPERCALCEMIA Social History Tobacco Use Types Packs/Day Years Used Date Smoking Tobacco: Never Assessed Comments Unknown Sex and Gender Information Value Date Recorded Sex Assigned at Not on file 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
--- OUTSIDE RECORDS SUMMARY | 2025-06-25 06:24 | XMS_ITS | Encounter Summary ---
Author Organization [facility] Address [address] [place] [address] Care Team Providers Care Freezer Operator Name Role Phone Rico Muñiz MD, Sharan Jaime Primary Care Provider Encounter Details Date Type Department Care Team (Latest Contact Info) Description 07/06/2003 Outpatient Historical [facility] 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
--- OUTSIDE RECORDS SUMMARY | 2025-06-25 06:24 | XMS_ITS | Encounter Summary ---
Author Organization [facility] Address [address] [place] [address] Care Team Providers Care Supervisor Small Appliance Assembly Name Role Phone Rico Muñiz MD, Sharan Jaime Primary Care Provider Encounter Details Date Type Department Care Team (Latest Contact Info) Description 08/06/2006 Outpatient Historical [facility] Int Luis AFaisal Lopez [address] [place] [address] Serge Arrington MD [address] [place] [address] Routine Gynecological Examination (Primary Dx) Social History Tobacco Use Types Packs/Day Years Used Date Smoking Tobacco: Never Assessed Comments Unknown Sex and Gender Information Value Date Recorded Sex Assigned at Not on file 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
--- OUTSIDE RECORDS SUMMARY | 2025-06-25 06:24 | XMS_ITS | Encounter Summary ---
Author Organization [facility] Address [address] [facility] Attn: [place] [address] Care Team Providers Care Property Custodian Name Role Phone Rico Muñiz MD, Sharan Jaime Primary Care Provider Encounter Details Date Type Department Care Team (Late st Contact Info) Description 04/23/2002 Outpatient Historical Sharan Gómez Jr., MD [address] [place] [address] Social History Tobacco Use Types Packs/Day Years Used Date Smoking Tobacco: Never Assessed Comments Unknown Sex and Gender Information Value Date Recorded Sex Assigned at Not on file Legal Sex Female 5:42 AM APPLICATION SYSTEMS ENGINEER Gender Identity Not on file Sexual Orientation Not on file documented as of this encounter Plan of Treatment Not on file documented as of this encounter Visit Diagnoses Not on filedocumented in this encounter Care Teams Property Custodian Relationship Specialty Start Date End Date Sharan Gómez Jr., MD [address] [place] [address] PCP - General 08/10/05 documented as of this encounter
--- OUTSIDE RECORDS SUMMARY | 2025-06-25 06:24 | XMS_ITS | Encounter Summary ---
Author Organization [facility] Address [address] [place] [address] Care Team Providers Care Finished Yarn Examiner Name Role Phone Rico Muñiz MD, Sharan Jaime Primary Care Provider Encounter Details Date Type Department Care Team (Latest Contact Info) Description 02/25/1999 Outpatient Historical [facility] Sharan Gómez Jr., MD [address] [place] [address] Dietary surveil/recreation counselor (Primary Dx) Social History Tobacco Use Types Packs/Day Years Used Date Smoking Tobacco: Never Assessed Comments Unknown Sex and Gender Information Value Date Recorded Sex Assigned at Not on file Legal Sex Female 5:42 AM AIRFRAME TECHNICAL OFFICER Gender Identity Not on file Sexual Orientation Not on file documented as of this encounter Plan of Treatment Not on file documented as of this encounter Visit Diagnoses Diagnosis Dietary surveil/recreation counselor- Primary Dietary surveillance and counseling documented in this encounter Care Teams Finished Yarn Examiner Relationship Specialty Start Date End Date Sharan Gómez Jr., MD [address] [place] [address] PCP - General 08/10/05 documented as of this encounter
--- OUTSIDE RECORDS SUMMARY | 2025-06-25 06:24 | XMS_ITS | Encounter Summary ---
Author Organization [facility] Address [address] [place] [address] Care Team Providers Care Steel Handler Name Role Phone Rico Muñiz MD, Sharan Jaime Primary Care Provider Encounter Details Date Type Department Care Team (Latest Contact Info) Description 06/26/2003 Outpatient Historical [facility] Lopez Michelle [address] [place] [address] Serge Arrington MD [address] [place] [address] HYPERTENSION NOS (Primary Dx); Routine medical exam Social History Tobacco Use Types Packs/Day Years Used Date Smoking Tobacco: Never Assessed Comments Unknown Sex and Gender Information Value Date Recorded Sex Assigned at Not on file Legal Sex Female 5:42 AM PLATE PAINTER Gender Identity Not on file Sexual Orientation Not on file documented as of this encounter Plan of Treatment Not on file documented as of this encounter Visit Diagnoses Diagnosis Unspecified essential hypertension- Primary Routine medical exam Routine general medical examination at a health care facility documented in this encounter Care Teams Steel Handler Relationship Specialty Start Date End Date Sharan Gómez Jr., MD [address] [place] [address] PCP - General 08/10/05 documented as of this encounter
--- OUTSIDE RECORDS SUMMARY | 2025-06-25 06:24 | XMS_ITS | Encounter Summary ---
Author Organization [facility] Address [address] [facility] [address] Attn: [place] [address] Care Team Providers Care Bruise Trimmer Name Role Phone Rico Muñiz MD, Sharan Jaime Primary Care Provider Encounter Details Date Type Department Care Team (Late st Contact Info) Description 07/23/2002 Outpatient Historical Екатерина Malone MD [address] [place] [address] Social History Tobacco Use Types Packs/Day Years Used Date Smoking Tobacco: Never Assessed Comments Unknown Sex and Gender Information Value Date Recorded Sex Assigned at Not on file Legal Sex Female 5:42 AM DRYWALL CONTRACTOR Gender Identity Not on file Sexual Orientation Not on file documented as of this encounter Plan of Treatment Not on file documented as of this encounter Visit Diagnoses Not on filedocumented in this encounter Care Teams Bruise Trimmer Relationship Specialty Start Date End Date Sharan Gómez Jr., MD [address] [place] [phone] PCP - General 08/10/05 documented as of this encounter
--- OUTSIDE RECORDS SUMMARY | 2025-06-25 06:24 | XMS_ITS | Encounter Summary ---
Author Organization [facility] Address [address] [place] [address] Care Team Providers Care Instrumentation Fitter Name Role Phone Rico Muñiz MD, Sharan Jaime Primary Care Provider Encounter Details Date Type Department Care Team (Latest Contact Info) Description 07/15/2002 Outpatient Historical [facility] Rafael Lopez Michelle [address] [place] [address] Patrick Olsen MD NO ADDRESS ON FILE POSTMENOPAUSAL BLEEDING (Primary Dx); DYSPAREUNIA; SCREENING MAL NEOP-CERVIX Social History Tobacco Use Types Packs/Day Years Used Date Smoking Tobacco: Never Assessed Comments Unknown Sex and Gender Information Value Date Recorded Sex Assigned at Not on file Legal Sex Female 5:42 AM GRINDER HARDBOARD Gender Identity Not on file Sexual Orientation Not on file documented as of this encounter Plan of Treatment Not on file documented as of this encounter Visit Diagnoses Diagnosis Postmenopausal bleeding- Primary Dyspareunia Screening for malignant neoplasm of the cervix documented in this encounter Care Teams Instrumentation Fitter Relationship Specialty Start Date End Date Sharan Gómez Jr., MD [address] [place] [address] PCP - General 08/10/05 documented as of this encounter
--- OUTSIDE RECORDS SUMMARY | 2025-06-25 06:24 | XMS_ITS | Encounter Summary ---
Author Organization [facility] Address [address] [place] [address] Care Team Providers Care Guest Experience Captain Name Role Phone Rico Muñiz MD, Sharan Jaime Primary Care Provider Encounter Details Date Type Department Care Team (Latest Contact Info) Description 11/05/2003 Outpatient Historical [facility] [address] [place] [address] Екатерина Malone MD [address] [place] [address] HYPERLIPIDEMIA NEC/NOS (Primary Dx) Social History Tobacco Use Types Packs/Day Years Used Date Smoking Tobacco: Never Assessed Comments Unknown Sex and Gender Information Value Date Recorded Sex Assigned at Not on file Legal Sex Female 5:42 AM DIVISION TOLL WIRE CHIEF Gender Identity Not on file Sexual Orientation Not on file documented as of this encounter Plan of Treatment Not on file documented as of this encounter Visit Diagnoses Diagnosis Other and unspecified hyperlipidemia- Primary documented in this encounter Care Teams Guest Experience Captain Relationship Specialty Start Date End Date Sharan Gómez Jr., MD [address] [place] [address] PCP - General 08/10/05 documented as of this encounter
--- OUTSIDE RECORDS SUMMARY | 2025-06-25 06:24 | XMS_ITS | Encounter Summary ---
Author Organization [facility] Address [address] [facility] Attn: Epic Prelude ADT [place] [address] Care Team Providers Care Wall Covering Contractor Name Role Phone Rico Muñiz MD, Sharan [...] on file Legal Sex Female 5:42 AM OPERATIONS COORDINATOR Gender Identity Not on file Sexual Orientation Not on file documented as of this encounter Plan of Treatment Not on file documented as of this encounter Visit Diagnoses Not on filedocumented in this encounter Care Teams Wall Covering Contractor Relationship Specialty Start Date End Date Sharan Gómez Jr., MD [address] [place] [address] PCP - General 08/10/05 documented as of this encounter
--- OUTSIDE RECORDS SUMMARY | 2025-06-25 06:24 | XMS_ITS | Encounter Summary ---
Author Organization [facility] Address [address] [place] [address] Care Team Providers Care Podiatrist Name Role Phone Rico Muñiz MD, Sharan Jaime Primary Care Provider Encounter Details Date Type Department Care Team (Latest Contact Info) Description 06/24/2002 Outpatient Historical [facility] Int Luis [facility] John [address] [place] [address] Serge Arrington MD [address] [place] [address] Mitral valve disorder (Primary Dx); CORONARY ATHEROSCLER UNSPEC VESSEL; HYPERTENSION NOS; HYPERLIPIDEMIA NEC/NOS Social History Tobacco Use Types Packs/Day Years Used Date Smoking Tobacco: Never Assessed Comments Unknown Sex and Gender Information Value Date Recorded Sex Assigned at Not on file Legal Sex Female 5:42 AM HEALTH TECHNICIAN HEARING Gender Identity Not on file Sexual Orientation Not on file documented as of this encounter Plan of Treatment Not on file documented as of this encounter Visit Diagnoses Diagnosis Mitral valve disorder- Primary Mitral valve disorders Coronary atherosclerosis of unspecified type of vessel, [place] or graft Unspecified essential hypertension Other and unspecified hyperlipidemia documented in this encounter Care Teams Podiatrist Relationship Specialty Start Date End Date Sharan Gómez Jr., MD [address] [place] [address] PCP - General 08/10/05 documented as of this encounter
--- OUTSIDE RECORDS SUMMARY | 2025-06-25 06:24 | XMS_ITS | Encounter Summary ---
Author Organization [facility] Address [address] [place] [address] Care Team Providers Care Mussel Opener Name Role Phone Rico Muñiz MD, Sharan Jaime Primary Care Provider Encounter Details Date Type Department Care Team (Latest Contact Info) Description 03/09/[address] [facility] [address] [place] [address] Екатерина Malone MD [address] [place] [address] ABN BLOOD CHEMISTRY NEC (Primary Dx) Social History Tobacco Use Types Packs/Day Years Used Date Smoking Tobacco: Never Assessed Comments Unknown Sex and Gender Information Value Date Recorded Sex Assigned at Not on file Legal Sex Female 5:42 AM PROOF PASSER Gender Identity Not on file Sexual Orientation Not on file documented as of this encounter Plan of Treatment Not on file documented as of this encounter Visit Diagnoses Diagnosis Other abnormal blood chemistry- Primary documented in this encounter Care Teams Mussel Opener Relationship Specialty Start Date End Date Sharan Gómez Jr., MD [address] [place] [address] PCP - General 08/10/05 documented as of this encounter
--- OUTSIDE RECORDS SUMMARY | 2025-06-25 06:24 | XMS_ITS | Encounter Summary ---
Author Organization [facility] Address [address] [facility] Attn: [place] [address] Care Team Providers Care Assembler Adjuster Name Role Phone Rico Muñiz MD, Sharan Jaime Primary Care Provider Encounter Details Date Type Department Care Team (Late st Contact Info) Description 07/03/2002 Outpatient Historical Екатерина Malone MD [address] [place] [address] Social History Tobacco Use Types Packs/Day Years Used Date Smoking Tobacco: Never Assessed Comments Unknown Sex and Gender Information Value Date Recorded Sex Assigned at Not on file Legal Sex Female 5:42 AM LOOM FIXER SUPERVISOR Gender Identity Not on file Sexual Orientation Not on file documented as of this encounter Plan of Treatment Not on file documented as of this encounter Visit Diagnoses Not on filedocumented in this encounter Care Teams Assembler Adjuster Relationship Specialty Start Date End Date Sharan Gómez Jr., MD [address] [place] [address] PCP - General 08/10/05 documented as of this encounter
--- OUTSIDE RECORDS SUMMARY | 2025-06-25 06:24 | XMS_ITS | Encounter Summary ---
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 Social History Tobacco Use Types Packs/Day Years Used Date Smoking Tobacco: Never Assessed Comments Unknown Sex and Gender Information Value Date Recorded Sex Assigned at Not on file Legal Sex Female 5:42 AM TITLE CLERK Gender Identity Not on file Sexual Orientation Not on file documented as of this encounter Plan of Treatment Not on file documented as of this encounter Visit Diagnoses Diagnosis Unspecified essential hypertension- Primary Hypopotassemia prison (current) use of anticoagulants Long-term (current) use of anticoagulants documented in this encounter Care Teams Soda Fountain Manager Relationship Specialty Start Date End Date Sharan Gómez Jr., MD [address] [place] [address] PCP - General 08/10/05 documented as of this encounter
--- OUTSIDE RECORDS SUMMARY | 2025-06-25 06:24 | XMS_ITS | Encounter Summary ---
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; Need vaccination-viral disease Social History Tobacco Use Types Packs/Day Years Used Date Smoking Tobacco: Never Assessed Comments Unknown Sex and Gender Information Value Date Recorded Sex Assigned at Not on file Legal Sex Female 5:42 AM UNIVERSITY REGISTRAR Gender Identity Not on file Sexual Orientation Not on file documented as of this encounter Plan of Treatment Not on file documented as of this encounter Visit Diagnoses Diagnosis Unspecified essential hypertension- Primary Esophagitis, unspecified ferry terminal 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
--- OUTSIDE RECORDS SUMMARY | 2025-06-25 06:24 | XMS_ITS | Encounter Summary ---
Author Organization [facility] Address [address] [place] [address] Care Team Providers Care Varnish Maker Helper Name Role Phone Rico Muñiz MD, Sharan Jaime Primary Care Provider Encounter Details Date Type Department Care Team (Latest Contact Info) Description 06/29/2004 Outpatient Historical [facility] Int Luis AFaisal Lopez [address] [place] [address] Serge Arrington MD [address] [place] [address] Mitral valve disorder (Primary Dx); HYPERTENSION NOS; HYPERLIPIDEMIA NEC/NOS; OSTEOPOROSIS NOS Social History Tobacco Use Types Packs/Day Years Used Date Smoking Tobacco: Never Assessed Comments Unknown Sex and Gender Information Value Date Recorded Sex Assigned at Not on file Legal Sex Female 5:42 AM MASSAGE OPERATOR Gender Identity Not on file Sexual Orientation Not on file documented as of this encounter Plan of Treatment Not on file documented as of this encounter Visit Diagnoses Diagnosis Mitral valve disorder- Primary Mitral valve disorders Unspecified essential hypertension Other and unspecified hyperlipidemia Osteoporosis, unspecified documented in this encounter Care Teams Varnish Maker Helper Relationship Specialty Start Date End Date Sharan Gómez Jr., MD [address] [place] [phone] PCP - General 08/10/05 documented as of this encounter
--- OUTSIDE RECORDS SUMMARY | 2025-06-25 06:24 | XMS_ITS | Encounter Summary ---
Author Organization [facility] Address [address] [place] [address] Care Team Providers Care Demolition Crane Operator Name Role Phone Rico Muñiz MD, Sharan Jaime Primary Care Provider Encounter Details Date Type Department Care Team (Latest Contact Info) Description 02/04/2007 Outpatient Historical [facility] Int Luis AFaisal Lopez [address] [place] [address] Serge Arrington MD [address] [place] [address] Unspecified Essential Hypertension (Primary Dx); Mitral Valve Disorder; Other and Unspecified Hyperlipidemia Social History Tobacco Use Types Packs/Day Years Used Date Smoking Tobacco: Never Assessed Comments Unknown Sex and Gender Information Value Date Recorded Sex Assigned at Not on file Legal Sex Female 5:42 AM MANAGER GAME Gender Identity Not on file Sexual Orientation Not on file documented as of this encounter Plan of Treatment Not on file documented as of this encounter Visit Diagnoses Diagnosis Unspecified essential hypertension- Primary Mitral valve disorder Mitral valve disorders Other and unspecified hyperlipidemia documented in this encounter Care Teams Demolition Crane Operator Relationship Specialty Start Date End Date Sharan Gómez Jr., MD [address] [place] [address] PCP - General 08/10/05 documented as of this encounter
--- NOTE | 2025-06-25 06:25 | ECG_ITS ---
[facility] Test Date: 2025-06-25 Pat Name: Odilia Ulloa Department: Room: Gender: Female Breaker Machine Operator: : 1950 Requested By: Josse Contreras Order Number: [id number] Supriya MD: Souleymane Wood M.D. Measurements Intervals [place] Rate: 93 P: 0 MO: 0 QRS: -1 QRSD: 113 T: 39 QT: 398 QTc: 496 Interpretive Statements ATRIAL FIBRILLATION LOW QRS VOLTAGE IN PRECORDIAL LEADS [QRS DEFLECTION < 1.0 mV IN CHEST LEADS] INCOMPLETE RIGHT BUNDLE BRANCH BLOCK [90+ ms QRS DURATION, TERMINAL R IN V1/V2, 40+ ms S IN I/aVL/V4/V5/V6] Compared to ECG 06/22/2025 11:39:01 Low QRS voltage now present Incomplete right bundle-branch block now present ST (T wave) deviation no longer present Electronically Signed On 06-26-2025 22:48:19 CDT by Souleymane Wood M.D. [email or web address]
--- OUTSIDE RECORDS SUMMARY | 2025-06-25 06:25 | XMS_ITS | Encounter Summary ---
Author Organization [facility] Address [address] [place] [address] Care Team Providers Care Pegger Dobby Looms Name Role Phone Rico Muñiz MD, Sharan Jaime Primary Care Provider Encounter Details Date Type Department Care Team (Latest Contact Info) Description 07/18/1999 Outpatient Historical [facility] Sharan Gómez Jr., MD [address] [place] [address] Skin sensation disturb (Primary Dx); Headache(784.0); penitentiary (current) use of anticoagulants Social History Tobacco Use Types Packs/Day Years Used Date Smoking Tobacco: Never Assessed Comments Unknown Sex and Gender Information Value Date Recorded Sex Assigned at Not on file Legal Sex Female 5:42 AM CONSTRUCTION PROJECT COORDINATOR Gender Identity Not on file Sexual Orientation Not on file documented as of this encounter Plan of Treatment Not on file documented as of this encounter Visit Diagnoses Diagnosis Skin sensation disturb- Primary Disturbance of skin sensation Headache(784.0) Headache penitentiary (current) use of anticoagulants Long-term (current) use of anticoagulants documented in this encounter Care Teams Pegger Dobby Looms Relationship Specialty Start Date End Date Sharan Gómez Jr., MD [address] [place] [address] PCP - General 08/10/05 documented as of this encounter
--- OUTSIDE RECORDS SUMMARY | 2025-06-25 06:25 | XMS_ITS | Encounter Summary ---
Author Organization [facility] Address [address] [place] [address] Care Team Providers Care Director Of Analytical Development Name Role Phone Rico Muñiz MD, Sharan Jaime Primary Care Provider Encounter Details Date Type Department Care Team (Latest Contact Info) Description 08/16/2000 Outpatient Historical [facility] Sharan Gómez Jr., MD [address] [place] [address] Pure hypercholesterolem (Primary Dx); Unspecified essential hypertension; Encounter for long-term (current) use of other medications Social History Tobacco Use Types Packs/Day Years Used Date Smoking Tobacco: Never Assessed Comments Unknown Sex and Gender Information Value Date Recorded Sex Assigned at Not on file Legal Sex Female 5:42 AM NETWORK TECHNICAL ANALYST Gender Identity Not on file Sexual Orientation Not on file documented as of this encounter Plan of Treatment Not on file documented as of this encounter Visit Diagnoses Diagnosis Pure hypercholesterolem- Primary Pure hypercholesterolemia Unspecified essential hypertension Encounter for long-term (current) use of other medications documented in this encounter Care Teams Director Of Analytical Development Relationship Specialty Start Date End Date Sharan Gómez Jr., MD [address] [place] [address] PCP - General 08/10/05 documented as of this encounter
--- OUTSIDE RECORDS SUMMARY | 2025-06-25 06:25 | XMS_ITS | Encounter Summary ---
Author Organization [facility] Address [address] [place] [address] Care Team Providers Care Circular Knife Cutter Machine Name Role Phone Rico Muñiz MD, Sharan Jaime Primary Care Provider Encounter Details Date Type Department Care Team (Late st Contact Info) Description 10/16/2020 Lab Requisition [facility] General Laboratory Services [place] [address] [place] [id number] Mtnv, External Provider [address] [facility] [address] [place] [address] Social History Tobacco Use Types Packs/Day Years Used Date Smoking Tobacco: Never Assessed Comments Unknown Sex and Gender Information Value Date Recorded Sex Assigned at Not on file Legal Sex Female 5:42 AM DIAMOND WHEEL MOLDER Gender Identity Not on file Sexual Orientation Not on file documented as of this encounter Plan of Treatment Not on file documented as of this encounter Procedures Procedure Name Priority Date/Time Associated Diagnosis Comments PROTIME-INR Routine 10/16/2020 10:20 AM DIAMOND WHEEL MOLDER documented in this encounter Results * (ABNORMAL) PROTIME-INR (10/16/2020 10:20 AM DIAMOND WHEEL MOLDER) PROTIME 42.0(H) 12.0 - 14.4 Seconds 10/16/2020 12:05 PM DIAMOND WHEEL MOLDER [facility] INR 4.7(H) 0.8 - 1.2 10/16/2020 12:05 PM DIAMOND WHEEL MOLDER [facility] Blood 10/16/2020 10:2 0 AM DIAMOND WHEEL MOLDER 10/16/2020 11:47 AM DIAMOND WHEEL MOLDER us External Provider Mtnv HEMATOLOGY ORDERABLES Fin al Result [facility] CLIA # [id number] [address] [place] [id number] documented in this encounter Visit Diagnoses Not on filedocumented in this encounter Care Teams Circular Knife Cutter Machine Relationship Specialty Start Date End Date Sharan Gómez Jr., MD [address] [place] [address] PCP - General 08/10/05 documented as of this encounter
--- OUTSIDE RECORDS SUMMARY | 2025-06-25 06:25 | XMS_ITS | Encounter Summary ---
Author Organization [facility] Address [address] [place] [address] Care Team Providers Care Nurse Private Duty Name Role Phone Rico Muñiz MD, Sharan Jaime Primary Care Provider Encounter Details Date Type Department Care Team (Latest Contact Info) Description 01/30/2001 Outpatient Historical [facility] Sharan Gómez Jr., MD [address] [place] [address] Endocarditis, valve unspecified, unspecified cause (Primary Dx); Acute sinusitis, unspecified; Bronchitis, not specified as acute or chronic Social History Tobacco Use Types Packs/Day Years Used Date Smoking Tobacco: Never Assessed Comments Unknown Sex and Gender Information Value Date Recorded Sex Assigned at Not on file Legal Sex Female 5:42 AM RIVET HEATER GAS Gender Identity Not on file Sexual Orientation Not on file documented as of this encounter Plan of Treatment Not on file documented as of this encounter Visit Diagnoses Diagnosis Endocarditis, valve unspecified, unspecified cause- Primary Acute sinusitis, unspecified Bronchitis, not specified as acute or chronic documented in this encounter Care Teams Nurse Private Duty Relationship Specialty Start Date End Date Sharan Gómez Jr., MD [address] [place] [phone] PCP - General 08/10/05 documented as of this encounter
--- OUTSIDE RECORDS SUMMARY | 2025-06-25 06:25 | XMS_ITS | Encounter Summary ---
Author Organization [facility] Address [address] [place] [address] Care Team Providers Care Facing Baster Jumpbasting Name Role Phone Rico Muñiz MD, Sharan Jaime Primary Care Provider Encounter Details Date Type Department Care Team (Latest Contact Info) Description 07/02/2001 Outpatient Historical [facility] Echocardiography - [place] [address] [place] [phone] X358 Social History Tobacco Use Types Packs/Day Years Used Date Smoking Tobacco: Never Assessed Comments Unknown Sex and Gender Information Value Date Recorded Sex Assigned at Not on file Legal Sex Female 5:42 AM WIRE LOOP 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
--- OUTSIDE RECORDS SUMMARY | 2025-06-25 06:25 | XMS_ITS | Encounter Summary ---
Author Organization [facility] Address [address] [place] [address] Care Team Providers Care Intensive Care Specialist Name Role Phone Rico Muñiz MD, Sharan Jaime Primary Care Provider Encounter Details Date Type Department Care Team (Latest Contact Info) Description 12/13/1998 Outpatient Historical [facility] Sharan Gómez Jr., MD [address] [place] [address] Acute upper respiratory infections of unspecified site (Primary Dx); keno terminal operator (current) use of anticoagulants Social History Tobacco Use Types Packs/Day Years Used Date Smoking Tobacco: Never Assessed Comments Unknown Sex and Gender Information Value Date Recorded Sex Assigned at Not on file Legal Sex Female 5:42 AM 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
--- OUTSIDE RECORDS SUMMARY | 2025-06-25 06:25 | XMS_ITS | Encounter Summary ---
Author Organization [facility] Address [address] [place] [address] Care Team Providers Care Cath Lab Technologist Name Role Phone Rico Muñiz MD, Sharan Jaime Primary Care Provider Encounter Details Date Type Department Care Team (Latest Contact Info) Description 03/03/2002 Outpatient Historical [facility] Sharan Gómez Jr., MD [address] [place] [address] HYPERTENSION NOS (Primary Dx); ENDOCARDITIS NOS; [facility] ANTICOAG USE; FAMILY HX-DIABETES MELLITUS Social History Tobacco Use Types Packs/Day Years Used Date Smoking Tobacco: Never Assessed Comments Unknown Sex and Gender Information Value Date Recorded Sex Assigned at Not on file Legal Sex Female 5:42 AM RN DOCUMENT IMPROVEMENT Gender Identity Not on file Sexual Orientation Not on file documented as of this encounter Plan of Treatment Not on file documented as of this encounter Visit Diagnoses Diagnosis Unspecified essential hypertension- Primary Endocarditis, valve unspecified, unspecified cause alf (current) use of anticoagulants Long-term (current) use of anticoagulants Family history of diabetes mellitus documented in this encounter Care Teams Cath Lab Technologist Relationship Specialty Start Date End Date Sharan Gómez Jr., MD [address] [place] [address] PCP - General 08/10/05 documented as of this encounter
--- OUTSIDE RECORDS SUMMARY | 2025-06-25 06:25 | XMS_ITS | Encounter Summary ---
Author Organization [facility] Address [address] [place] [address] Care Team Providers Care Cargo Agent Name Role Phone Rico Muñiz MD, Sharan Jaime Primary Care Provider Encounter Details Date Type Department Care Team (Late st Contact Info) Description 07/30/2000 Outpatient Historical [facility] Social History Tobacco Use Types Packs/Day Years Used Date Smoking Tobacco: Never Assessed Comments Unknown Sex and Gender Information Value Date Recorded Sex Assigned at Not on file Legal Sex Female 5:42 AM RINK RAT Gender Identity Not on file Sexual Orientation Not on file documented as of this encounter Plan of Treatment Not on file documented as of this encounter Visit Diagnoses Not on filedocumented in this encounter Care Teams Cargo Agent Relationship Specialty Start Date End Date Sharan Gómez Jr., MD [address] [place] [place] [address] PCP - General 08/10/05 documented as of this encounter
--- OUTSIDE RECORDS SUMMARY | 2025-06-25 06:25 | XMS_ITS | Encounter Summary ---
Author Organization [facility] Address [address] [place] [address] Care Team Providers Care Institutional Research Coordinator Name Role Phone Rico Muñiz MD, Sharan Jaime Primary Care Provider Encounter Details Date Type Department Care Team (Latest Contact Info) Description 08/10/2005 Outpatient Historical [facility]- [place] [address] [facility] [address] [place] [address] Bill Negron MD [address] [place] [address] ABN FIND-STOOL CONTENTS-OCC BLOOD (Primary Dx); INT HEMORRHOID W/O COMPL; ANAL FISSURE Social History Tobacco Use Types Packs/Day Years Used Date Smoking Tobacco: Never Assessed Comments Unknown Sex and Gender Information Value Date Recorded Sex Assigned at Not on file Legal Sex Female 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
--- OUTSIDE RECORDS SUMMARY | 2025-06-25 06:25 | XMS_ITS | Encounter Summary ---
Author Organization [facility] Address [address] [place] [address] Care Team Providers Care Camera Engineer Name Role Phone Rico Muñiz MD, Sharan Jaime Primary Care Provider Encounter Details Date Type Department Care Team (Latest Contact Info) Description 09/05/2001 Outpatient Historical [facility] Sharan Gómez Jr., MD [address] [place] [address] OSTEOARTHROS NOS-UNSPEC (Primary Dx); OSTEOPOROSIS NOS Social History Tobacco Use Types Packs/Day Years Used Date Smoking Tobacco: Never Assessed Comments Unknown Sex and Gender Information Value Date Recorded Sex Assigned at Not on file Legal Sex Female 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
--- OUTSIDE RECORDS SUMMARY | 2025-06-25 06:25 | XMS_ITS | Encounter Summary ---
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) use of anticoagulants Social History Tobacco Use Types Packs/Day Years Used Date Smoking Tobacco: Never Assessed Comments Unknown Sex and Gender Information Value Date Recorded Sex Assigned at Not on file Legal Sex Female 5:42 AM 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
--- OUTSIDE RECORDS SUMMARY | 2025-06-25 06:25 | XMS_ITS | Encounter Summary ---
Author Organization [facility] Address [address] [place] [address] Care Team Providers Care Shochet Name Role Phone Rico Muñiz MD, Sharan Jaime Primary Care Provider Encounter Details Date Type Department Care Team (Latest Contact Info) Description 04/01/1999 Outpatient Historical [facility] Sharan Gómez Jr., MD [address] [place] [address] Type II or unspecified type diabetes mellitus without mention of complication, not stated as uncontrolled (Primary Dx); Dietary surveil/admitting counselor Social History Tobacco Use Types Packs/Day Years Used Date Smoking Tobacco: Never Assessed Comments Unknown Sex and Gender Information Value Date Recorded Sex Assigned at Not on file Legal Sex Female 5:42 AM DIE DEVELOPER Gender Identity Not on file Sexual Orientation Not on file documented as of this encounter Plan of Treatment Not on file documented as of this encounter Visit Diagnoses Diagnosis Type II or unspecified type diabetes mellitus without mention of complication, not stated as uncontrolled- Primary Dietary surveil/admitting counselor Dietary surveillance and counseling documented in this encounter Care Teams Shochet Relationship Specialty Start Date End Date Sharan Gómez Jr., MD [address] [place] [address] PCP - General 08/10/05 documented as of this encounter
--- OUTSIDE RECORDS SUMMARY | 2025-06-25 06:25 | XMS_ITS | Encounter Summary ---
Author Organization [facility] Address [address] [place] [address] Care Team Providers Care Accounts Payable Analyst Name Role Phone Rico Muñiz MD, Sharan Jaime Primary Care Provider Encounter Details Date Type Department Care Team (Latest Contact Info) Description 08/05/2001 Outpatient Historical [facility] Sharan Gómez Jr., MD [address] [place] [address] Generalized anxiety disorder (Primary Dx); Hypopotassemia Social History Tobacco Use Types Packs/Day Years Used Date Smoking Tobacco: Never Assessed Comments Unknown Sex and Gender Information Value Date Recorded Sex Assigned at Not on file Legal Sex Female 5:42 AM DAY HABILITATION SPECIALIST Gender Identity Not on file Sexual Orientation Not on file documented as of this encounter Plan of Treatment Not on file documented as of this encounter Visit Diagnoses Diagnosis Generalized anxiety disorder- Primary Hypopotassemia documented in this encounter Care Teams Accounts Payable Analyst Relationship Specialty Start Date End Date Sharan Gómez Jr., MD [address] [place] [address] PCP - General 08/10/05 documented as of this encounter
--- OUTSIDE RECORDS SUMMARY | 2025-06-25 06:25 | XMS_ITS | Encounter Summary ---
Author Organization [facility] Address [address] [place] [address] Care Team Providers Care Undraped Artist Model Name Role Phone Rico Muñiz MD, Sharan Jaime Primary Care Provider Encounter Details Date Type Department Care Team (Latest Contact Info) Description 04/19/2001 Outpatient Historical [facility] Arun Nichols NO ADDRESS ON FILE Contusion of hand(s) (Primary Dx) Social History Tobacco Use Types Packs/Day Years Used Date Smoking Tobacco: Never Assessed Comments Unknown Sex and Gender Information Value Date Recorded Sex Assigned at Not on file Legal Sex Female 5:42 AM UNDRAPED ARTIST MODEL Gender Identity Not on file Sexual Orientation Not on file documented as of this encounter Plan of Treatment Not on file documented as of this encounter Visit Diagnoses Diagnosis Contusion of hand(s)- Primary documented in this encounter Care Teams Undraped Artist Model Relationship Specialty Start Date End Date Sharan Gómez Jr., MD [address] [place] [address] PCP - General 08/10/05 documented as of this encounter
--- OUTSIDE RECORDS SUMMARY | 2025-06-25 06:25 | XMS_ITS | Encounter Summary ---
Author Organization Address [address] [facility] Attn: [place] [address] Care Team Providers Care Ornamental Plasterer Helper Name Role Phone Rico Muñiz MD, Sharan Jaime Primary Care Provider Encounter Details Date Type Department Care Team (Late st Contact Info) Description 12/26/1999 Outpatient Historical Sharan Gómez Jr., MD [address] [place] [address] Social History Tobacco Use Types Packs/Day Years Used Date Smoking Tobacco: Never Assessed Comments Unknown Sex and Gender Information Value Date Recorded Sex Assigned at Not on file Legal Sex Female 5:42 AM ENTRY 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
--- OUTSIDE RECORDS SUMMARY | 2025-06-25 06:25 | XMS_ITS | Encounter Summary ---
Author Organization [facility] Address [address] [facility] Attn: [place] [address] Care Team Providers Care Striper Machine Name Role Phone Rico Muñiz MD, Sharan Jaime Primary Care Provider Encounter Details Date Type Department Care Team (Late st Contact Info) Description 05/16/2001 Outpatient Historical Sharan Gómez Jr., MD [address] [place] [address] Social History Tobacco Use Types Packs/Day Years Used Date Smoking Tobacco: Never Assessed Comments Unknown Sex and Gender Information Value Date Recorded Sex Assigned at Not on file Legal Sex Female 5:42 AM FORMS ANALYST Gender Identity Not on file Sexual Orientation Not on file documented as of this encounter Plan of Treatment Not on file documented as of this encounter Visit Diagnoses Not on filedocumented in this encounter Care Teams Striper Machine Relationship Specialty Start Date End Date Sharan Gómez Jr., MD [address] [place] [address] PCP - General 08/10/05 documented as of this encounter
--- OUTSIDE RECORDS SUMMARY | 2025-06-25 06:25 | XMS_ITS | Encounter Summary ---
Author Organization [facility] Address [address] [facility] Attn: [place] [address] Care Team Providers Care Stencil Printer Name Role Phone Rico Muñiz MD, Sharan Jiame Primary Care Provider Encounter Details Date Type Department Care Team (Late st Contact Info) Description 02/15/2001 Outpatient Historical Sharan Gómez Jr., MD [address] [place] [address] Social History Tobacco Use Types Packs/Day Years Used Date Smoking Tobacco: Never Assessed Comments Unknown Sex and Gender Information Value Date Recorded Sex Assigned at Not on file Legal Sex Female 5:42 AM BEEHIVE KILN SUPERVISOR Gender Identity Not on file Sexual Orientation Not on file documented as of this encounter Plan of Treatment Not on file documented as of this encounter Visit Diagnoses Not on filedocumented in this encounter Care Teams Stencil Printer Relationship Specialty Start Date End Date Sharan Gómez Jr., MD [address] [place] [address] PCP - General 08/10/05 documented as of this encounter
--- OUTSIDE RECORDS SUMMARY | 2025-06-25 06:25 | XMS_ITS | Encounter Summary ---
Author Organization [facility] Address [address] [facility] Attn: [place] [address] Care Team Providers Care Air Cargo Specialist Supervisor Name Role Phone Rico Muñiz MD, Sharan Jaime Primary Care Provider Encounter Details Date Type Department Care Team (Late st Contact Info) Description 08/05/2001 Outpatient Historical Sharan Gómez Jr., MD [address] [place] [address] Social History Tobacco Use Types Packs/Day Years Used Date Smoking Tobacco: Never Assessed Comments Unknown Sex and Gender Information Value Date Recorded Sex Assigned at Not on file Legal Sex Female 5:42 AM PASSENGER BARGE MASTER Gender Identity Not on file Sexual Orientation Not on file documented as of this encounter Plan of Treatment Not on file documented as of this encounter Visit Diagnoses Not on filedocumented in this encounter Care Teams Air Cargo Specialist Supervisor Relationship Specialty Start Date End Date Sharan Gómez Jr., MD [address] [place] [address] PCP - General 08/10/05 documented as of this encounter
--- OUTSIDE RECORDS SUMMARY | 2025-06-25 06:25 | XMS_ITS | Encounter Summary ---
Author Organization [facility] Address [address] [place] [address] Care Team Providers Care Title Clerk Name Role Phone Rico Muñiz MD, Sharan Jaime Primary Care Provider Encounter Details Date Type Department Care Team (Late st Contact Info) Description 06/21/2000 Outpatient Historical [facility] Serge Arrington MD [address] [facility] [address] [place] [address] Unspecified essential hypertension (Primary Dx); Mitral valve disorder; group home (current) use of anticoagulants Social History Tobacco Use Types Packs/Day Years Used Date Smoking Tobacco: Never Assessed Comments Unknown Sex and Gender Information Value Date Recorded Sex Assigned at Not on file Legal Sex Female 5:42 AM DYNAMOMETER REPAIRER Gender Identity Not on file Sexual Orientation Not on file documented as of this encounter Plan of Treatment Not on file documented as of this encounter Visit Diagnoses Diagnosis Unspecified essential hypertension- Primary Mitral valve disorder Mitral valve disorders terminal operations manager (current) use of anticoagulants Long-term (current) use of anticoagulants documented in this encounter Care Teams Title Clerk Relationship Specialty Start Date End Date Sharan Gómez Jr., MD [address] [place] [address] PCP - General 08/10/05 documented as of this encounter
--- OUTSIDE RECORDS SUMMARY | 2025-06-25 06:25 | XMS_ITS | Encounter Summary ---
Author Organization [facility] Address [address] [place] [address] Care Team Providers Care Metal Riveting Machine Operator Name Role Phone Rico Muñiz MD, Sharan Jaime Primary Care Provider Encounter Details Date Type Department Care Team (Latest Contact Info) Description 06/20/1999 Outpatient Historical [facility] Imaging Services-[facility] Michelle [address] [place] [address] Serge Arrington MD [address] [place] [address] Cough (Primary Dx) Social History Tobacco Use Types Packs/Day Years Used Date Smoking Tobacco: Never Assessed Comments Unknown Sex and Gender Information Value Date Recorded Sex Assigned at Not on file Legal Sex Female 5:42 AM PAINTER SKI EDGE Gender Identity Not on file Sexual Orientation Not on file documented as of this encounter Plan of Treatment Not on file documented as of this encounter Visit Diagnoses Diagnosis Cough- Primary documented in this encounter Care Teams Metal Riveting Machine Operator Relationship Specialty Start Date End Date Sharan Gómez Jr., MD [address] [place] [address] PCP - General 08/10/05 documented as of this encounter
--- OUTSIDE RECORDS SUMMARY | 2025-06-25 06:25 | XMS_ITS | Encounter Summary ---
Author Organization [facility] Address [address] [place] [address] Care Team Providers Care Zipper Trimmer Hand Name Role Phone Rico Muñiz MD, Sharan Jaime Primary Care Provider Encounter Details Date Type Department Care Team (Latest Contact Info) Description 07/04/2005 Outpatient Historical [facility] Int Luis AFaisal Lopez Michelle-Owen [address] [place] [address] Serge Arrington MD [address] [place] [address] Mitral valve disorder (Primary Dx); HYPERTENSION NOS; ABN FIND-STOOL CONTENTS-OCC BLOOD; SCREENING MAL NEOP-CERVIX Social History Tobacco Use Types Packs/Day Years Used Date Smoking Tobacco: Never Assessed Comments Unknown Sex and Gender Information Value Date Recorded Sex Assigned at Not on file Legal Sex Female 5:42 AM PERSONAL DEVELOPMENT COACH Gender Identity Not on file Sexual Orientation Not on file documented as of this encounter Plan of Treatment Not on file documented as of this encounter Visit Diagnoses Diagnosis Mitral valve disorder- Primary Mitral valve disorders Unspecified essential hypertension Nonspecific abnormal finding in stool contents Screening for malignant neoplasm of the cervix documented in this encounter Care Teams Zipper Trimmer Hand Relationship Specialty Start Date End Date Sharan Gómez Jr., MD [address] [place] [address] PCP - General 08/10/05 documented as of this encounter
--- OUTSIDE RECORDS SUMMARY | 2025-06-25 06:25 | XMS_ITS | Encounter Summary ---
Author Organization [facility] Address [address] [place] [address] Care Team Providers Care Roulette Dealer Name Role Phone Rico Muñiz MD, Sharan Jaime Primary Care Provider Encounter Details Date Type Department Care Team (Latest Contact Info) Description 08/10/2005 Outpatient Historical [facility] Endoscopy Rebeca [address] [place] [address] Bill Negron MD [address] [place] [address] INT HEMORRHOID W/O COMPL (Primary Dx) Social History Tobacco Use Types Packs/Day Years Used Date Smoking Tobacco: Never Assessed Comments Unknown Sex and Gender Information Value Date Recorded Sex Assigned at Not on file Legal Sex Female 5:42 AM CIRCUIT 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
--- OUTSIDE RECORDS SUMMARY | 2025-06-25 06:25 | XMS_ITS | Encounter Summary ---
Author Organization [facility] Address [address] [place] [address] Care Team Providers Care Manager Sap Name Role Phone Rico Muñiz MD, Sharan Jaime Primary Care Provider Encounter Details Date Type Department Care Team (Latest Contact Info) Description 11/25/1999 Outpatient Historical [facility] Sharan Gómez Jr., MD [address] [place] [address] Epistaxis (Primary Dx); correction (current) use of anticoagulants Social History Tobacco Use Types Packs/Day Years Used Date Smoking Tobacco: Never Assessed Comments Unknown Sex and Gender Information Value Date Recorded Sex Assigned at Not on file Legal Sex Female 5:42 AM PROFESSOR 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
--- OUTSIDE RECORDS SUMMARY | 2025-06-25 06:25 | XMS_ITS | Encounter Summary ---
Author Organization [facility] Address [address] [place] [address] Care Team Providers Care Store Clerk Name Role Phone Rico Muñiz MD, Sharan Jaime Primary Care Provider Encounter Details Date Type Department Care Team (Late st Contact Info) Description 06/24/2001 Outpatient Historical [facility] Serge Arrington MD [address] [facility] [address] [place] [address] Unspecified essential hypertension (Primary Dx); Other and unspecified hyperlipidemia Social History Tobacco Use Types Packs/Day Years Used Date Smoking Tobacco: Never Assessed Comments Unknown Sex and Gender Information Value Date Recorded Sex Assigned at Not on file Legal Sex Female 5:42 AM MANAGEMENT CONSULTANT Gender Identity Not on file Sexual Orientation Not on file documented as of this encounter Plan of Treatment Not on file documented as of this encounter Visit Diagnoses Diagnosis Unspecified essential hypertension- Primary Other and unspecified hyperlipidemia documented in this encounter Care Teams Store Clerk Relationship Specialty Start Date End Date Sharan Gómez Jr., MD [address] [place] [address] PCP - General 08/10/05 documented as of this encounter
--- OUTSIDE RECORDS SUMMARY | 2025-06-25 06:25 | XMS_ITS | Encounter Summary ---
Author Organization [facility] Address [address] [place] [address] Care Team Providers Care Site Superintendent Name Role Phone Rico Muñiz MD, Sharan Jaime Primary Care Provider Encounter Details Date Type Department Care Team (Latest Contact Info) Description 10/31/2001 Outpatient Historical [facility] Sharan Gómez Jr., MD [address] [place] [address] ATRIAL FIBRILLATION (CMS/HCC) (Primary Dx); [facility] ANTICOAG USE; HEART VALVE REPLAC NEC Social History Tobacco Use Types Packs/Day Years Used Date Smoking Tobacco: Never Assessed Comments Unknown Sex and Gender Information Value Date Recorded Sex Assigned at Not on file Legal Sex Female 5:42 AM RN HEMODIALYSIS Gender Identity Not on file Sexual Orientation Not on file documented as of this encounter Plan of Treatment Not on file documented as of this encounter Visit Diagnoses Diagnosis Atrial fibrillation (CMS/HCC)- Primary Atrial fibrillation custodial (current) use of anticoagulants Long-term (current) use of anticoagulants Heart valve replaced by other means documented in this encounter Care Teams Site Superintendent Relationship Specialty Start Date End Date Sharan Gómez Jr., MD [address] [place] [address] PCP - General 08/10/05 documented as of this encounter
--- OUTSIDE RECORDS SUMMARY | 2025-06-25 06:25 | XMS_ITS | Encounter Summary ---
Author Organization [facility] Address [address] [place] [address] Care Team Providers Care Wood Lather Name Role Phone Rico Muñiz MD, Sharan Jaime Primary Care Provider Encounter Details Date Type Department Care Team (Latest Contact Info) Description 02/15/2001 Outpatient Historical [facility] Sharan Gómez Jr., MD [address] [place] [address] Unspecified essential hypertension (Primary Dx); Heart valve replaced by other means Social History Tobacco Use Types Packs/Day Years Used Date Smoking Tobacco: Never Assessed Comments Unknown Sex and Gender Information Value Date Recorded Sex Assigned at Not on file Legal Sex Female 5:42 AM PATIENT CARRIER Gender Identity Not on file Sexual Orientation Not on file documented as of this encounter Plan of Treatment Not on file documented as of this encounter Visit Diagnoses Diagnosis Unspecified essential hypertension- Primary Heart valve replaced by other means documented in this encounter Care Teams Wood Lather Relationship Specialty Start Date End Date Sharan Gómez Jr., MD [address] [place] [address] PCP - General 08/10/05 documented as of this encounter
--- OUTSIDE RECORDS SUMMARY | 2025-06-25 06:25 | XMS_ITS | Encounter Summary ---
Author Organization [facility] Address [address] [place] [address] Care Team Providers Care Big Data Developer Name Role Phone Rico Muñiz MD, Sharan Jaime Primary Care Provider Encounter Details Date Type Department Care Team (Latest Contact Info) Description 10/26/1999 Outpatient Historical [facility] Sharan Gómez Jr., MD [address] [place] [address] Endocarditis, valve unspecified, unspecified cause (Primary Dx); Osteoporosis, unspecified Social History Tobacco Use Types Packs/Day Years Used Date Smoking Tobacco: Never Assessed Comments Unknown Sex and Gender Information Value Date Recorded Sex Assigned at Not on file Legal Sex Female 5:42 AM ASSEMBLER ENGINE Gender Identity Not on file Sexual Orientation Not on file documented as of this encounter Plan of Treatment Not on file documented as of this encounter Visit Diagnoses Diagnosis Endocarditis, valve unspecified, unspecified cause- Primary Osteoporosis, unspecified documented in this encounter Care Teams Big Data Developer Relationship Specialty Start Date End Date Sharan Gómez Jr., MD [address] [place] [address] PCP - General 08/10/05 documented as of this encounter
--- OUTSIDE RECORDS SUMMARY | 2025-06-25 06:25 | XMS_ITS | Encounter Summary ---
Author Organization [facility] Address [address] [place] [address] Care Team Providers Care Date Puller Name Role Phone Rico Muñiz MD, Sharan Jaime Primary Care Provider Encounter Details Date Type Department Care Team (Latest Contact Info) Description 07/06/2006 Outpatient Historical [facility]aisal Lopez Michelle [address] [place] [address] Jennifer Cash MD NO ADDRESS ON FILE Unspecified Essential Hypertension (Primary Dx); Other Chest Pain Social History Tobacco Use Types Packs/Day Years Used Date Smoking Tobacco: Never Assessed Comments Unknown Sex and Gender Information Value Date Recorded Sex Assigned at Not on file Legal Sex Female 5:42 AM LONG TERM CARE PHARMACIST Gender Identity Not on file Sexual Orientation Not on file documented as of this encounter Plan of Treatment Not on file documented as of this encounter Visit Diagnoses Diagnosis Unspecified essential hypertension- Primary Other chest pain documented in this encounter Care Teams Date Puller Relationship Specialty Start Date End Date Sharan Gómez Jr., MD [address] [place] [address] PCP - General 08/10/05 documented as of this encounter
--- OUTSIDE RECORDS SUMMARY | 2025-06-25 06:25 | XMS_ITS | Encounter Summary ---
Author Organization [facility] Address [address] [place] [address] Care Team Providers Care Tennis Coach Name Role Phone Rico Muñiz MD, Sharan Jaime Primary Care Provider Encounter Details Date Type Department Care Team (Latest Contact Info) Description 12/20/2001 Outpatient Historical [facility] Sharan Gómez Jr., MD [address] [place] [address] WHEEZING (Primary Dx); HEART VALVE REPLAC NEC; AFTERCARE CHOCOLATE DIPPER ANTICOAG USE Social History Tobacco Use Types Packs/Day Years Used Date Smoking Tobacco: Never Assessed Comments Unknown Sex and Gender Information Value Date Recorded Sex Assigned at Not on file Legal Sex Female 5:42 AM BICYCLE I ASSEMBLER Gender Identity Not on file Sexual Orientation Not on file documented as of this encounter Plan of Treatment Not on file documented as of this encounter Visit Diagnoses Diagnosis Wheezing- Primary Heart valve replaced by other means equipment operator intermodal yard (current) use of anticoagulants Long-term (current) use of anticoagulants documented in this encounter Care Teams Tennis Coach Relationship Specialty Start Date End Date Sharan Gómez Jr., MD [address] [facility] [place] [address] PCP - General 08/10/05 documented as of this encounter
--- OUTSIDE RECORDS SUMMARY | 2025-06-25 06:25 | XMS_ITS | Encounter Summary ---
Author Organization [facility] Address [address] [place] [address] Care Team Providers Care Machine Sewer Name Role Phone Rico Muñiz MD, Sharan Jaime Primary Care Provider Encounter Details Date Type Department Care Team (Latest Contact Info) Description 11/04/1998 Outpatient Historical [facility] Sharan Gómez Jr., MD [address] [place] [address] Acute upper respiratory infections of unspecified site (Primary Dx); Screening for other and unspecified respiratory condition; Other dyspnea and respiratory abnormality; FDC (current) use of anticoagulants Social History Tobacco Use Types Packs/Day Years Used Date Smoking Tobacco: Never Assessed Comments Unknown Sex and Gender Information Value Date Recorded Sex Assigned at Not on file Legal Sex Female 5:42 AM RECYCLER 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 DRIVER 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 DRIVER Gender Identity Not on file Sexual Orientation Not on file documented as of this encounter Plan of Treatment Not on file documented as of this encounter Visit Diagnoses Diagnosis Acute upper respiratory infections of unspecified site- Primary Screening for other and unspecified respiratory condition Other dyspnea and respiratory abnormality superintendent terminal (current) use of anticoagulants Long-term (current) use of anticoagulants documented in this encounter Care Teams Machine Sewer Relationship Specialty Start Date End Date Sharan Gómez Jr., MD [address] [place] [address] PCP - General 08/10/05 documented as of this encounter
--- OUTSIDE RECORDS SUMMARY | 2025-06-25 06:25 | XMS_ITS | Encounter Summary ---
Author Organization [facility] Address [address] [place] [address] Care Team Providers Care Academic Affairs Director Name Role Phone Rico Muñiz MD, Sharan Jaime Primary Care Provider Encounter Details Date Type Department Care Team (Latest Contact Info) Description 04/06/2000 Outpatient Historical [facility] Sharan Gómez Jr., MD [address] [place] [address] Symptomatic menopausal or female climacteric states (Primary Dx); Endocarditis, valve unspecified, unspecified cause; intermediate card tender (current) use of anticoagulants Social History Tobacco Use Types Packs/Day Years Used Date Smoking Tobacco: Never Assessed Comments Unknown Sex and Gender Information Value Date Recorded Sex Assigned at Not on file Legal Sex Female 5:42 AM ADDICTION SOCIAL WORKER Gender Identity Not on file Sexual Orientation Not on file documented as of this encounter Plan of Treatment Not on file documented as of this encounter Visit Diagnoses Diagnosis Symptomatic menopausal or female climacteric states- Primary Endocarditis, valve unspecified, unspecified cause [facility] (current) use of anticoagulants Long-term (current) use of anticoagulants documented in this encounter Care Teams Academic Affairs Director Relationship Specialty Start Date End Date Sharan Gómez Jr., MD [address] [place] [address] PCP - General 08/10/05 documented as of this encounter
--- OUTSIDE RECORDS SUMMARY | 2025-06-25 06:25 | XMS_ITS | Encounter Summary ---
Author Organization [facility] Address [address] [place] [address] Care Team Providers Care Research Affiliate Name Role Phone Rico Muñiz MD, Sharan Jaime Primary Care Provider Encounter Details Date Type Department Care Team (Latest Contact Info) Description 01/03/2002 Outpatient Historical [facility] Sharan Gómez Jr., MD [address] [place] [address] FLU W RESP MANIFEST NEC (Primary Dx); [facility] LEATHER TANNER ANTICOAG USE Social History Tobacco Use Types Packs/Day Years Used Date Smoking Tobacco: Never Assessed Comments Unknown Sex and Gender Information Value Date Recorded Sex Assigned at Not on file Legal Sex Female 5:42 AM MOTORCYCLE MECHANIC Gender Identity Not on file Sexual Orientation Not on file documented as of this encounter Plan of Treatment Not on file documented as of this encounter Visit Diagnoses Diagnosis Influenza with other respiratory manifestations- Primary group home (current) use of anticoagulants Long-term (current) use of anticoagulants documented in this encounter Care Teams Research Affiliate Relationship Specialty Start Date End Date Sharan Gómez Jr., MD [address] [place] [address] PCP - General 08/10/05 documented as of this encounter
--- OUTSIDE RECORDS SUMMARY | 2025-06-25 06:25 | XMS_ITS | Encounter Summary ---
Author Organization [facility] Address [address] [place] [address] Care Team Providers Care Melt Down Furnace Operator Name Role Phone Rico Muñiz MD, Sharan Jaime Primary Care Provider Encounter Details Date Type Department Care Team (Latest Contact Info) Description 07/04/2005 Outpatient Historical [facility] Imaging Services-Faisal Lopez Michelle [address] [place] [address] Serge Arrington MD [address] [place] [address] HYPERTENSION NOS (Primary Dx) Social History Tobacco Use Types Packs/Day Years Used Date Smoking Tobacco: Never Assessed Comments Unknown Sex and Gender Information Value Date Recorded Sex Assigned at Not on file Legal Sex Female 5:42 AM 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
--- OUTSIDE RECORDS SUMMARY | 2025-06-25 06:25 | XMS_ITS | Encounter Summary ---
Author Organization [facility] Address [address] [place] [address] Care Team Providers Care Street Department Dispatcher Name Role Phone Rico Muñiz MD, Sharan Jaime Primary Care Provider Encounter Details Date Type Department Care Team (Late st Contact Info) Description 07/02/2001 Outpatient Historical [facility] Serge Arrington MD [address] [facility] [address] [place] [address] Encounter for long-term (current) use of other medications (Primary Dx); Unspecified essential hypertension Social History Tobacco Use Types Packs/Day Years Used Date Smoking Tobacco: Never Assessed Comments Unknown Sex and Gender Information Value Date Recorded Sex Assigned at Not on file Legal Sex Female 5:42 AM DRY SANDER Gender Identity Not on file Sexual Orientation Not on file documented as of this encounter Plan of Treatment Not on file documented as of this encounter Visit Diagnoses Diagnosis Encounter for long-term (current) use of other medications- Primary Unspecified essential hypertension documented in this encounter Care Teams Street Department Dispatcher Relationship Specialty Start Date End Date Sharan Gómez Jr., MD [address] [place] [address] PCP - General 08/10/05 documented as of this encounter
--- OUTSIDE RECORDS SUMMARY | 2025-06-25 06:25 | XMS_ITS | Encounter Summary ---
Author Organization [facility] Address [address] [place] [address] Care Team Providers Care People Greeter Name Role Phone Rico Muñiz MD, Sharan Jaime Primary Care Provider Encounter Details Date Type Department Care Team (Latest Contact Info) Description 06/28/2000 Outpatient Historical [facility] Sharan Gómez Jr., MD [address] [place] [address] Pure hypercholesterolem (Primary Dx); Hypopotassemia; Heart valve replaced by other means Social History Tobacco Use Types Packs/Day Years Used Date Smoking Tobacco: Never Assessed Comments Unknown Sex and Gender Information Value Date Recorded Sex Assigned at Not on file Legal Sex Female 5:42 AM DOCTOR OF MEDICINE Gender Identity Not on file Sexual Orientation Not on file documented as of this encounter Plan of Treatment Not on file documented as of this encounter Visit Diagnoses Diagnosis Pure hypercholesterolem- Primary Pure hypercholesterolemia Hypopotassemia Heart valve replaced by other means documented in this encounter Care Teams People Greeter Relationship Specialty Start Date End Date Sharan Gómez Jr., MD [address] [place] [address] PCP - General 08/10/05 documented as of this encounter
--- OUTSIDE RECORDS SUMMARY | 2025-06-25 06:25 | XMS_ITS | Encounter Summary ---
Author Organization [facility] Address [address] [place] [address] Care Team Providers Care Flight Test Shop Mechanic Name Role Phone Rico Muñiz MD, Sharan Jaime Primary Care Provider Encounter Details Date Type Department Care Team (Latest Contact Info) Description 09/12/2000 Outpatient Historical [facility] Sharan Gómez Jr., MD [address] [place] [address] Other and unspecified hyperlipidemia (Primary Dx); Other nonspecific finding on examination of urine; Personal history of other disorder of urinary system; custodial (current) use of anticoagulants Social History Tobacco Use Types Packs/Day Years Used Date Smoking Tobacco: Never Assessed Comments Unknown Sex and Gender Information Value Date Recorded Sex Assigned at Not on file Legal Sex Female 5:42 AM NATURAL RESOURCES MANAGER Gender Identity Not on file Sexual Orientation Not on file documented as of this encounter Plan of Treatment Not on file documented as of this encounter Visit Diagnoses Diagnosis Other and unspecified hyperlipidemia- Primary Other nonspecific finding on examination of urine Personal history of other disorder of urinary system custodial (current) use of anticoagulants Long-term (current) use of anticoagulants documented in this encounter Care Teams Flight Test Shop Mechanic Relationship Specialty Start Date End Date Sharan Gómez Jr., MD [address] [place] [address] PCP - General 08/10/05 documented as of this encounter
--- OUTSIDE RECORDS SUMMARY | 2025-06-25 06:25 | XMS_ITS | Encounter Summary ---
Author Organization [facility] Address [address] [place] [address] Care Team Providers Care Aquatic Centre Manager Name Role Phone Rico Muñiz MD, Sharan Jaime Primary Care Provider Encounter Details Date Type Department Care Team (Latest Contact Info) Description 04/18/1999 Outpatient Historical [facility] Sharan Gómez Jr., MD [address] [place] [address] Headache(784.0) (Primary Dx); Unspecified essential hypertension; USP (current) use of anticoagulants Social History Tobacco Use Types Packs/Day Years Used Date Smoking Tobacco: Never Assessed Comments Unknown Sex and Gender Information Value Date Recorded Sex Assigned at Not on file Legal Sex Female 5:42 AM WEB APPLICATION DEVELOPER Gender Identity Not on file Sexual Orientation Not on file documented as of this encounter Plan of Treatment Not on file documented as of this encounter Visit Diagnoses Diagnosis Headache(784.0)- Primary Headache Unspecified essential hypertension USP (current) use of anticoagulants Long-term (current) use of anticoagulants documented in this encounter Care Teams Aquatic Centre Manager Relationship Specialty Start Date End Date Sharan Gómez Jr., MD [address] [place] [address] PCP - General 08/10/05 documented as of this encounter
--- OUTSIDE RECORDS SUMMARY | 2025-06-25 06:25 | XMS_ITS | Encounter Summary ---
Author Organization 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 anticoagulants Social History Tobacco Use Types Packs/Day Years Used Date Smoking Tobacco: Never Assessed Comments Unknown Sex and Gender Information Value Date Recorded Sex Assigned at Not on file Legal Sex Female 5:42 AM DISABILITIES CAREGIVER Gender Identity Not on file Sexual Orientation Not on file documented as of this encounter Plan of Treatment Not on file documented as of this encounter Visit Diagnoses Diagnosis Acute upper respiratory infections of unspecified site- Primary computer science intern (current) use of anticoagulants Long-term (current) use of anticoagulants documented in this encounter Care Teams Electronics Engineering Manager Relationship Specialty Start Date End Date Sharan Gómez Jr., MD [address] [place] [address] PCP - General 08/10/05 documented as of this encounter
--- OUTSIDE RECORDS SUMMARY | 2025-06-25 06:25 | XMS_ITS | Encounter Summary ---
Author Organization [facility] Address [address] [place] [address] Care Team Providers Care Hand Twister Name Role Phone Rico Muñiz MD, Sharan Jaime Primary Care Provider Encounter Details Date Type Department Care Team (Latest Contact Info) Description 01/14/1999 Outpatient Historical [facility] Sharan Gómez Jr., MD [address] [place] [address] Spasm of muscle (Primary Dx) Social History Tobacco Use Types Packs/Day Years Used Date Smoking Tobacco: Never Assessed Comments Unknown Sex and Gender Information Value Date Recorded Sex Assigned at Not on file Legal Sex Female 5:42 AM FUR DRY CLEANER HAND Gender Identity Not on file Sexual Orientation Not on file documented as of this encounter Plan of Treatment Not on file documented as of this encounter Visit Diagnoses Diagnosis Spasm of muscle- Primary documented in this encounter Care Teams Hand Twister Relationship Specialty Start Date End Date Sharan Gómez Jr., MD [address] [place] [address] PCP - General 08/10/05 documented as of this encounter
--- OUTSIDE RECORDS SUMMARY | 2025-06-25 06:25 | XMS_ITS | Encounter Summary ---
Author Organization [facility] Address [address] [place] [address] Care Team Providers Care Market Risk Analyst Name Role Phone Rico Muñiz MD, Sharan Jaime Primary Care Provider Encounter Details Date Type Department Care Team (Late st Contact Info) Description 10/15/2020 Lab Requisition [facility] Services [address] [place] [address] Paulina Peterson MD [address] [place] [address] Social History Tobacco Use Types Packs/Day Years Used Date Smoking Tobacco: Never Assessed Comments Unknown Sex and Gender Information Value Date Recorded Sex Assigned at Not on file Legal Sex Female 5:42 AM RICE FARMER Gender Identity Not on file Sexual Orientation Not on file documented as of this encounter Plan of Treatment Not on file documented as of this encounter Procedures Procedure Name Priority Date/Time Associated Diagnosis Comments PROTIME-INR Routine 10/15/2020 4:40 AM RICE FARMER documented in this encounter Results * (ABNORMAL) PROTIME-INR (10/15/2020 4:40 AM RICE FARMER) PROTIME 46.6(H) 11.9 - 15.5 Seconds 10/15/2020 4:26 PM RICE FARMER [facility] INR 4.9(H) 0.8 - 1.2 10/15/2020 4:26 PM RICE FARMER [facility] Blood Collection / Unknown 10/15/2020 4:40 AM RICE FARMER 10/15/2020 4:01 PM RICE FARMER Narrative [facility] - 10/15/2020 4:26 PM RICE FARMER Expected Values for INR: DVT/PE Goal INR 2.5; range 2.0 - 3.0 Valve Replacement Tissue Goal INR 2.5; range 2.0 - 3.0 Valve Replacement Mechanical Goal INR 3.0; range 2.5 - 3.5 POST-IA Goal INR 2.5; range 2.0 - 3.0 or Goal INR 3.0; range 2.5 - 3.5 Atrial Fibrillation Goal INR 2.5; range 2.0 - 3.0 Ischemic Stroke Goal INR 2.5; range 2.0 - 3.0 For additional information see Guidelines for Anticoagulation available from the pharmacy [facility] Pharm D. us Paulina Peterson MD HEMATOLOGY ORDERABLES Maame smart Result [facility] [address] [place] [address] documented in this encounter Visit Diagnoses Not on filedocumented in this encounter Care Teams Market Risk Analyst Relationship Specialty Start Date End Date Sharan Gómez Jr., MD [address] [place] [address] PCP - General 08/10/05 documented as of this encounter
--- OUTSIDE RECORDS SUMMARY | 2025-06-25 06:25 | XMS_ITS | Encounter Summary ---
Author Organization [facility] Address [address] [place] [address] Care Team Providers Care Implementation Manager Name Role Phone Rico Muñiz MD, Sharan Jaime Primary Care Provider Encounter Details Date Type Department Care Team (Latest Contact Info) Description 06/18/1998 Outpatient Historical [facility] Int Luis AFaisal Lopez [address] [place] [address] Serge Arrington MD [address] [place] [address] Mitral valve disorder (Primary Dx); Unspecified essential hypertension; Hematuria; Routine medical exam Social History Tobacco Use Types Packs/Day Years Used Date Smoking Tobacco: Never Assessed Comments Unknown Sex and Gender Information Value Date Recorded Sex Assigned at Not on file Legal Sex Female 5:42 AM MARKETING SERVICES COORDINATOR Gender Identity Not on file Sexual Orientation Not on file documented as of this encounter Plan of Treatment Not on file documented as of this encounter Visit Diagnoses Diagnosis Mitral valve disorder- Primary Mitral valve disorders Unspecified essential hypertension Hematuria Routine medical exam Routine general medical examination at a health care facility documented in this encounter Care Teams Implementation Manager Relationship Specialty Start Date End Date Sharan Gómez Jr., MD [address] [place] [phone] PCP - General 08/10/05 documented as of this encounter
--- OUTSIDE RECORDS SUMMARY | 2025-06-25 06:25 | XMS_ITS | Encounter Summary ---
Author Organization [facility] Address [address] Attn: [place] [address] Care Team Providers Care Salesperson Burial Needs Name Role Phone Rico Muñiz MD, Sharan Jaime Primary Care Provider Encounter Details Date Type Department Care Team (Late st Contact Info) Description 05/24/2000 Outpatient Historical Sharan Gómez Jr., MD [address] [place] [address] Social History Tobacco Use Types Packs/Day Years Used Date Smoking Tobacco: Never Assessed Comments Unknown Sex and Gender Information Value Date Recorded Sex Assigned at Not on file Legal Sex Female 5:42 AM PRINT CONTROLLER Gender Identity Not on file Sexual Orientation Not on file documented as of this encounter Plan of Treatment Not on file documented as of this encounter Visit Diagnoses Not on filedocumented in this encounter Care Teams Salesperson Burial Needs Relationship Specialty Start Date End Date Sharan Gómez Jr., MD [address] [place] [address] PCP - General 08/10/05 documented as of this encounter
--- OUTSIDE RECORDS SUMMARY | 2025-06-25 06:25 | XMS_ITS | Encounter Summary ---
Author Organization [facility] Address [address] [place] [address] Care Team Providers Care Metal Bonding Helper Name Role Phone Rico Muñiz MD, Sharan Jaime Primary Care Provider Encounter Details Date Type Department Care Team (Latest Contact Info) Description 05/16/2001 Outpatient Historical [facility] Sharan Gómez Jr., MD [address] [place] [address] Unspecified essential hypertension (Primary Dx); assisted (current) use of anticoagulants Social History Tobacco Use Types Packs/Day Years Used Date Smoking Tobacco: Never Assessed Comments Unknown Sex and Gender Information Value Date Recorded Sex Assigned at Not on file Legal Sex Female 5:42 AM CORE FITTER Gender Identity Not on file Sexual Orientation Not on file documented as of this encounter Plan of Treatment Not on file documented as of this encounter Visit Diagnoses Diagnosis Unspecified essential hypertension- Primary assisted (current) use of anticoagulants Long-term (current) use of anticoagulants documented in this encounter Care Teams Metal Bonding Helper Relationship Specialty Start Date End Date Sharan Gómez Jr., MD [address] [place] [address] PCP - General 08/10/05 documented as of this encounter
--- OUTSIDE RECORDS SUMMARY | 2025-06-25 06:25 | XMS_ITS | Encounter Summary ---
Author Organization [facility] Address [address] [place] [address] Care Team Providers Care Director Cardiac Name Role Phone Rico Muñiz MD, Sharan Jaime Primary Care Provider Encounter Details Date Type Department Care Team (Late st Contact Info) Description 10/18/2020 Lab Requisition [facility] Laboratory Services [address] [place] [phone] Tabatha Lynn, [place] [facility] [address] [place] [address] Social History Tobacco Use Types Packs/Day Years Used Date Smoking Tobacco: Never Assessed Comments Unknown Sex and Gender Information Value Date Recorded Sex Assigned at Not on file Legal Sex Female 5:42 AM SHARK BIOLOGIST Gender Identity Not on file Sexual Orientation Not on file documented as of this encounter Plan of Treatment Not on file documented as of this encounter Procedures Procedure Name Priority Date/Time Associated Diagnosis Comments PROTIME-INR Routine 10/18/2020 6:34 AM SHARK BIOLOGIST documented in this encounter Results * (ABNORMAL) PROTIME-INR (10/18/2020 6:34 AM SHARK BIOLOGIST) PROTIME 34.1(H) 11.9 - 15.5 Seconds 10/18/2020 5:19 PM SHARK BIOLOGIST [facility] INR 3.2(H) 0.8 - 1.2 10/18/2020 5:19 PM SHARK BIOLOGIST [facility] Blood Collection / Unknown 10/18/2020 6:34 AM SHARK BIOLOGIST 10/18/2020 4:57 PM SHARK BIOLOGIST Narrative [facility] - 10/18/2020 5:19 PM SHARK BIOLOGIST Expected Values for INR: DVT/PE Goal INR 2.5; range 2.0 - 3.0 Valve Replacement Tissue Goal INR 2.5; range 2.0 - 3.0 Valve Replacement Mechanical Goal INR 3.0; range 2.5 - 3.5 POST-[place] Goal INR 2.5; range 2.0 - 3.0 or Goal INR 3.0; range 2.5 - 3.5 Atrial Fibrillation Goal INR 2.5; range 2.0 - 3.0 Ischemic Stroke Goal INR 2.5; range 2.0 - 3.0 For additional information see Guidelines for Anticoagulation available from the pharmacy Asp[facility] Mitchell, Pharm D. Tabatha Neff NUCLEAR WASTE PROCESS OPERATOR HEMATOLOGY ORDERABLES Final Result [facility] [address] [place] [address] documented in this encounter Visit Diagnoses Not on filedocumented in this encounter Care Teams Director Cardiac Relationship Specialty Start Date End Date Sharan Gómez Jr., MD [address] [place] [address] PCP - General 08/10/05 documented as of this encounter
--- OUTSIDE RECORDS SUMMARY | 2025-06-25 06:25 | XMS_ITS | Encounter Summary ---
Author Organization [facility] Address [address] [facility] Attn: [place] [address] Care Team Providers Care Health Care Analyst Name Role Phone Rico Muñiz MD, Sharan Jaime Primary Care Provider Encounter Details Date Type Department Care Team (Late st Contact Info) Description 08/16/2000 Outpatient Historical Sharan Gómez Jr., MD [address] [place] [address] Social History Tobacco Use Types Packs/Day Years Used Date Smoking Tobacco: Never Assessed Comments Unknown Sex and Gender Information Value Date Recorded Sex Assigned at Not on file Legal Sex Female 5:42 AM SOFT WATER MECHANIC Gender Identity Not on file Sexual Orientation Not on file documented as of this encounter Plan of Treatment Not on file documented as of this encounter Visit Diagnoses Not on filedocumented in this encounter Care Teams Health Care Analyst Relationship Specialty Start Date End Date Sharan Gómez Jr., MD [address] [place] [address] PCP - General 08/10/05 documented as of this encounter
--- OUTSIDE RECORDS SUMMARY | 2025-06-25 06:25 | XMS_ITS | Clinical Summary ---
Author Organization [facility] Address [address] [place] [address] Phone Care Team Providers Care Nurses Assistant Name Role Phone Rico Muñiz MD, Sharan Jaime Primary Care Provider Immunizations Immunization Administration Dates Next Due (PNEUMOVAX 23)(50 YRS UP) PN EUMOCOCCAL POLYSACCHARIDE (PPV23) 0.5 ML, IM 06/26/2003 Social History Tobacco Use Types Packs/Day Years Used Date Smoking Tobacco: Never Assessed Comments Unknown Sex and Gender Information Value Date Recorded Sex Assigned at Not on file Legal Sex Female 5:42 AM TRANSFORMATION SPECIALIST Gender Identity Not on file Sexual [...] AND [place] Care Teams Nurses Assistant Relationship Specialty Start Date End Date Sharan Gómez Jr., MD [address] [place] [address] PCP - General 08/10/05
--- OUTSIDE RECORDS SUMMARY | 2025-06-25 06:25 | XMS_ITS | Encounter Summary ---
Author Organization [facility] Address [address] [facility] Attn: [place] [address] Care Team Providers Care Relay Dispatcher Name Role Phone Rico Muñiz MD, Sharan Jaime Primary Care Provider Encounter Details Date Type Department Care Team (Late st Contact Info) Description 12/20/2001 Outpatient Historical Sharan Gómez Jr., MD [address] [place] [address] Social History Tobacco Use Types Packs/Day Years Used Date Smoking Tobacco: Never Assessed Comments Unknown Sex and Gender Information Value Date Recorded Sex Assigned at Not on file Legal Sex Female 5:42 AM PCMH SPECIALIST Gender Identity Not on file Sexual Orientation Not on file documented as of this encounter Plan of Treatment Not on file documented as of this encounter Visit Diagnoses Not on filedocumented in this encounter Care Teams Relay Dispatcher Relationship Specialty Start Date End Date Sharan Gómez Jr., MD [address] [place] [address] PCP - General 08/10/05 documented as of this encounter
--- OUTSIDE RECORDS SUMMARY | 2025-06-25 06:25 | XMS_ITS | Encounter Summary ---
Author Organization [facility] Address [address] [place] [address] Care Team Providers Care Supervisor Drying Name Role Phone Rico Muñiz MD, Sharan Jaime Primary Care Provider Encounter Details Date Type Department Care Team (Latest Contact Info) Description 06/20/1999 Outpatient Historical [facility] Echocardiography - National [address] [place] [address] X358 Serge Arrington MD [address] [address] Painful respiration (Primary Dx); Precordial pain; Other dyspnea and respiratory abnormality Social History Tobacco Use Types Packs/Day Years Used Date Smoking Tobacco: Never Assessed Comments Unknown Sex and Gender Information Value Date Recorded Sex Assigned at Not on file Legal Sex Female 5:42 AM ELEVATOR OPERATOR Gender Identity Not on file Sexual Orientation Not on file documented as of this encounter Plan of Treatment Not on file documented as of this encounter Visit Diagnoses Diagnosis Painful respiration- Primary Precordial pain Other dyspnea and respiratory abnormality documented in this encounter Care Teams Supervisor Drying Relationship Specialty Start Date End Date Sharan Gómez Jr., MD [address] [place] [address] PCP - General 08/10/05 documented as of this encounter
--- OUTSIDE RECORDS SUMMARY | 2025-06-25 06:25 | XMS_ITS | Encounter Summary ---
Author Organization [facility] Address [address] [place] [address] Care Team Providers Care Technical Illustrations Map Inker Name Role Phone Rico Muñiz MD, Sharan Jaime Primary Care Provider Encounter Details Date Type Department Care Team (Latest Contact Info) Description 11/28/2001 Outpatient Historical [facility] Sharan Gómez Jr., MD [address] [place] [address] URIN TRACT INFECTION NOS (Primary Dx); [facility] ANTICOAG USE Social History Tobacco Use Types Packs/Day Years Used Date Smoking Tobacco: Never Assessed Comments Unknown Sex and Gender Information Value Date Recorded Sex Assigned at Not on file Legal Sex Female 5:42 AM RESISTANCE WELDING 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 Gender Identity Not on file Sexual Orientation Not on file documented as of this encounter Plan of Treatment Not on file documented as of this encounter Visit Diagnoses Diagnosis Urinary tract infection, site not specified- Primary emt intermediate (current) use of anticoagulants Long-term (current) use of anticoagulants documented in this encounter Care Teams Technical Illustrations Map Inker Relationship Specialty Start Date End Date Sharan Gómez Jr., MD [address] [facility] [place] [address] PCP - General 08/10/05 documented as of this encounter
--- OUTSIDE RECORDS SUMMARY | 2025-06-25 06:25 | XMS_ITS | Encounter Summary ---
Author Organization [facility] Address [address] [place] [address] Care Team Providers Care Surveillance System Monitor Name Role Phone Rico Muñiz MD, Sharan Jaime Primary Care Provider Encounter Details Date Type Department Care Team (Latest Contact Info) Description 05/18/1999 Outpatient Historical [facility] Sharan Gómez Jr., MD [address] [place] [address] Osteoarthrosis, unspecified whether generalized or localized, unspecified site (Primary Dx); [facility] (current) use of anticoagulants; Heart valve replaced by other means Social History Tobacco Use Types Packs/Day Years Used Date Smoking Tobacco: Never Assessed Comments Unknown Sex and Gender Information Value Date Recorded Sex Assigned at Not on file Legal Sex Female 5:42 AM CHARGE MASTER COORDINATOR Gender Identity Not on file Sexual Orientation Not on file documented as of this encounter Plan of Treatment Not on file documented as of this encounter Visit Diagnoses Diagnosis Osteoarthrosis, unspecified whether generalized or localized, unspecified site- Primary marine oil terminal superintendent (current) use of anticoagulants Long-term (current) use of anticoagulants Heart valve replaced by other means documented in this encounter Care Teams Surveillance System Monitor Relationship Specialty Start Date End Date Sharan Gómez Jr., MD [address] [place] [address] PCP - General 08/10/05 documented as of this encounter
--- OUTSIDE RECORDS SUMMARY | 2025-06-25 06:25 | XMS_ITS | Encounter Summary ---
Author Organization [facility] Address [address] [place] [address] Care Team Providers Care Forensic Investigator Name Role Phone Rico Muñiz MD, Sharan Jaime Primary Care Provider Encounter Details Date Type Department Care Team (Latest Contact Info) Description 07/06/2006 Outpatient Historical [facility] [address] [place] [address] Jennifer Cash MD NO ADDRESS ON FILE Unspecified Essential Hypertension (Primary Dx); Other and Unspecified Hyperlipidemia; Hypercalcemia; Routine Medical Exam Social History Tobacco Use Types Packs/Day Years Used Date Smoking Tobacco: Never Assessed Comments Unknown Sex and Gender Information Value Date Recorded Sex Assigned at Not on file Legal Sex Female 5:42 AM OBIEE CONSULTANT Gender Identity Not on file Sexual Orientation Not on file documented as of this encounter Plan of Treatment Not on file documented as of this encounter Visit Diagnoses Diagnosis Unspecified essential hypertension- Primary Other and unspecified hyperlipidemia Hypercalcemia Routine medical exam Routine general medical examination at a health care facility documented in this encounter Care Teams Forensic Investigator Relationship Specialty Start Date End Date Sharan Gómez Jr., MD [address] [place] [address] PCP - General 08/10/05 documented as of this encounter
--- OUTSIDE RECORDS SUMMARY | 2025-06-25 06:25 | XMS_ITS | Encounter Summary ---
Author Organization [facility] Address [address] [place] [address] Care Team Providers Care Microcomputer Support Specialist Name Role Phone Rico Muñiz MD, Sharan Jaime Primary Care Provider Encounter Details Date Type Department Care Team (Latest Contact Info) Description 01/25/2000 Outpatient Historical [facility] Sharan Gómez Jr., MD [address] [place] [address] Obesity, unspecified (Primary Dx); Heart valve replaced by other means; Unspecified essential hypertension; shelter (current) use of anticoagulants Social History Tobacco Use Types Packs/Day Years Used Date Smoking Tobacco: Never Assessed Comments Unknown Sex and Gender Information Value Date Recorded Sex Assigned at Not on file Legal Sex Female 5:42 AM AGENT TICKETING GATE Gender Identity Not on file Sexual Orientation Not on file documented as of this encounter Plan of Treatment Not on file documented as of this encounter Visit Diagnoses Diagnosis Obesity, unspecified- Primary Heart valve replaced by other means Unspecified essential hypertension shelter (current) use of anticoagulants Long-term (current) use of anticoagulants documented in this encounter Care Teams Microcomputer Support Specialist Relationship Specialty Start Date End Date Sharan Gómez Jr., MD [address] [place] [address] PCP - General 08/10/05 documented as of this encounter
--- OUTSIDE RECORDS SUMMARY | 2025-06-25 06:25 | XMS_ITS | Encounter Summary ---
Author Organization [facility] Address [address] [place] [address] Care Team Providers Care Cad Administrator Name Role Phone Rico Muñiz MD, Sharan Jaime Primary Care Provider Encounter Details Date Type Department Care Team (Latest Contact Info) Description 11/14/2001 Outpatient Historical [facility] Sharan Gómez Jr., MD [address] [place] [address] OSTEOARTHROS NOS-UNSPEC (Primary Dx); HEART VALVE REPLAC NEC Social History Tobacco Use Types Packs/Day Years Used Date Smoking Tobacco: Never Assessed Comments Unknown Sex and Gender Information Value Date Recorded Sex Assigned at Not on file Legal Sex Female 5:42 AM KNOCKOUT MAN Gender Identity Not on file Sexual Orientation Not on file documented as of this encounter Plan of Treatment Not on file documented as of this encounter Visit Diagnoses Diagnosis Osteoarthrosis, unspecified whether generalized or localized, unspecified site- Primary Heart valve replaced by other means documented in this encounter Care Teams Cad Administrator Relationship Specialty Start Date End Date Sharan Gómez Jr., MD [address] [place] [address] PCP - General 08/10/05 documented as of this encounter
--- OUTSIDE RECORDS SUMMARY | 2025-06-25 06:25 | XMS_ITS | Encounter Summary ---
Author Organization [facility] Address [address] [place] [address] Care Team Providers Care Technology Methodology Consultant Name Role Phone Rico Muñiz MD, Sharan Jaime Primary Care Provider Encounter Details Date Type Department Care Team (Latest Contact Info) Description 06/24/[address] [facility] Int Luis AFaisal Lopez [address] [place] [address] Serge Arrington MD [address] [place] [address] Mitral valve disorder (Primary Dx); Unspecified essential hypertension; Other and unspecified hyperlipidemia; Dizziness and giddiness Social History Tobacco Use Types Packs/Day Years Used Date Smoking Tobacco: Never Assessed Comments Unknown Sex and Gender Information Value Date Recorded Sex Assigned at Not on file Legal Sex Female 5:42 AM FABRICATION INSPECTOR Gender Identity Not on file Sexual Orientation Not on file documented as of this encounter Plan of Treatment Not on file documented as of this encounter Visit Diagnoses Diagnosis Mitral valve disorder- Primary Mitral valve disorders Unspecified essential hypertension Other and unspecified hyperlipidemia Dizziness and giddiness documented in this encounter Care Teams Technology Methodology Consultant Relationship Specialty Start Date End Date Sharan Gómez Jr., MD [address] [place] [address] PCP - General 08/10/05 documented as of this encounter
--- OUTSIDE RECORDS SUMMARY | 2025-06-25 06:25 | XMS_ITS | Encounter Summary ---
Author Organization [facility] Address [address] [place] [address] Care Team Providers Care Demo Event Specialist Name Role Phone Rico Muñiz MD, Sharan Jaime Primary Care Provider Encounter Details Date Type Department Care Team (Latest Contact Info) Description 08/31/2000 Outpatient Historical [facility] Sharan Gómez Jr., MD [address] [place] [address] Pure hypercholesterolem (Primary Dx); Dietary surveil/counselor marriage and family Social History Tobacco Use Types Packs/Day Years Used Date Smoking Tobacco: Never Assessed Comments Unknown Sex and Gender Information Value Date Recorded Sex Assigned at Not on file Legal Sex Female 5:42 AM DIAGRAMMER AND SEAMER Gender Identity Not on file Sexual Orientation Not on file documented as of this encounter Plan of Treatment Not on file documented as of this encounter Visit Diagnoses Diagnosis Pure hypercholesterolem- Primary Pure hypercholesterolemia Dietary surveil/counselor marriage and family Dietary surveillance and counseling documented in this encounter Care Teams Demo Event Specialist Relationship Specialty Start Date End Date Sharan Gómez Jr., MD [address] [place] [address] PCP - General 08/10/05 documented as of this encounter
--- OUTSIDE RECORDS SUMMARY | 2025-06-25 06:25 | XMS_ITS | Encounter Summary ---
Author Organization [facility] Address [address] [place] [address] Care Team Providers Care Customs Investigator Name Role Phone Rico Muñiz MD, Sharan Jaime Primary Care Provider Encounter Details Date Type Department Care Team (Latest Contact Info) Description 06/28/2001 Outpatient Historical [facility] Sharan Gómez Jr., MD [address] [place] [address] Esophageal reflux (Primary Dx); Heart valve replaced by other means Social History Tobacco Use Types Packs/Day Years Used Date Smoking Tobacco: Never Assessed Comments Unknown Sex and Gender Information Value Date Recorded Sex Assigned at Not on file Legal Sex Female 5:42 AM AUTOMATIC SHIRRING 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 Gender Identity Not on file Sexual Orientation Not on file documented as of this encounter Plan of Treatment Not on file documented as of this encounter Visit Diagnoses Diagnosis Esophageal reflux- Primary Heart valve replaced by other means documented in this encounter Care Teams Customs Investigator Relationship Specialty Start Date End Date Sharan Gómez Jr., MD [address] [place] [address] PCP - General 08/10/05 documented as of this encounter
--- OUTSIDE RECORDS SUMMARY | 2025-06-25 06:25 | XMS_ITS | Encounter Summary ---
Author Organization [facility] Address [address] [place] [address] Care Team Providers Care Salesperson Men'S Furnishings Name Role Phone Rico Muñiz MD, Sharan Jaime Primary Care Provider Encounter Details Date Type Department Care Team (Late st Contact Info) Description 07/26/1999 Outpatient Historical [facility] Cardiology- [place] [address] [place] [phone] [place] [address] [facility] [place] [address] Pain in limb (Primary Dx); Heart valve replaced by other means Social History Tobacco Use Types Packs/Day Years Used Date Smoking Tobacco: Never Assessed Comments Unknown Sex and Gender Information Value Date Recorded Sex Assigned at Not on file Legal Sex Female 5:42 AM RETAIL DIRECTOR Gender Identity Not on file Sexual Orientation Not on file documented as of this encounter Plan of Treatment Not on file documented as of this encounter Visit Diagnoses Diagnosis Pain in limb- Primary Pain in soft tissues of limb Heart valve replaced by other means documented in this encounter Care Teams Salesperson Men'S Furnishings Relationship Specialty Start Date End Date Sharan Gómez Jr., MD [address] [place] [address] PCP - General 08/10/05 documented as of this encounter
--- OUTSIDE RECORDS SUMMARY | 2025-06-25 06:25 | XMS_ITS | Encounter Summary ---
Author Organization [facility] Address [address] [facility] Attn: [place] [address] Care Team Providers Care Advertising Sales Assistant Name Role Phone Rico Muñiz MD, Sharan Jaime Primary Care Provider Encounter Details Date Type Department Care Team (Late st Contact Info) Description 04/07/2002 Outpatient Historical Sharan Gómez Jr., MD [address] [place] [address] Social History Tobacco Use Types Packs/Day Years Used Date Smoking Tobacco: Never Assessed Comments Unknown Sex and Gender Information Value Date Recorded Sex Assigned at Not on file Legal Sex Female 5:42 AM INFLATABLE BUILDINGS LAMINATOR Gender Identity Not on file Sexual Orientation Not on file documented as of this encounter Plan of Treatment Not on file documented as of this encounter Visit Diagnoses Not on filedocumented in this encounter Care Teams Advertising Sales Assistant Relationship Specialty Start Date End Date Sharan Gómez Jr., MD [address] [place] [address] PCP - General 08/10/05 documented as of this encounter
--- OUTSIDE RECORDS SUMMARY | 2025-06-25 06:25 | XMS_ITS | Encounter Summary ---
Author Organization [facility] Address [address] [place] [address] Care Team Providers Care Pizza Hut Assistant Name Role Phone Rioc Muñiz MD, Sharan Jaime Primary Care Provider Encounter Details Date Type Department Care Team (Latest Contact Info) Description 11/09/2000 Outpatient Historical [facility] Sharan Gómez Jr., MD [address] [place] [address] Unspecified essential hypertension (Primary Dx); Pure hypercholesterolem; Endocarditis, valve unspecified, unspecified cause; care home (current) use of anticoagulants Social History Tobacco Use Types Packs/Day Years Used Date Smoking Tobacco: Never Assessed Comments Unknown Sex and Gender Information Value Date Recorded Sex Assigned at Not on file Legal Sex Female 5:42 AM MANAGER PAYROLL Gender Identity Not on file Sexual Orientation Not on file documented as of this encounter Plan of Treatment Not on file documented as of this encounter Visit Diagnoses Diagnosis Unspecified essential hypertension- Primary Pure hypercholesterolem Pure hypercholesterolemia Endocarditis, valve unspecified, unspecified cause ecological risk assessor (current) use of anticoagulants Long-term (current) use of anticoagulants documented in this encounter Care Teams Pizza Hut Assistant Relationship Specialty Start Date End Date Sharan Gómez Jr., MD [address] [place] [address] PCP - General 08/10/05 documented as of this encounter
--- OUTSIDE RECORDS SUMMARY | 2025-06-25 06:25 | XMS_ITS | Encounter Summary ---
Author Organization [facility] Address [address] [place] [address] Care Team Providers Care Casket Assembler Name Role Phone Rico Muñiz MD, Sharan Jaime Primary Care Provider Encounter Details Date Type Department Care Team (Latest Contact Info) Description 12/26/1999 Outpatient Historical [facility] Sharan Gómez Jr., MD [address] [place] [address] ASCVD (Primary Dx); Esophageal reflux; Unspecified essential hypertension; director long term care (current) use of anticoagulants Social History Tobacco Use Types Packs/Day Years Used Date Smoking Tobacco: Never Assessed Comments Unknown Sex and Gender Information Value Date Recorded Sex Assigned at Not on file Legal Sex Female 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 PRINTER 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 Gender Identity Not on file Sexual Orientation Not on file documented as of this encounter Plan of Treatment Not on file documented as of this encounter Visit Diagnoses Diagnosis ASCVD- Primary Unspecified cardiovascular disease Esophageal reflux Unspecified essential hypertension director long term care (current) use of anticoagulants Long-term (current) use of anticoagulants documented in this encounter Care Teams Casket Assembler Relationship Specialty Start Date End Date Sharan Gómez Jr., MD [address] [place] [address] PCP - General 08/10/05 documented as of this encounter
--- OUTSIDE RECORDS SUMMARY | 2025-06-25 06:25 | XMS_ITS | Encounter Summary ---
Author Organization [facility] Address [address] [place] [address] Care Team Providers Care Pulmonary Fellow Name Role Phone Rico Muñiz MD, Sharan Jaime Primary Care Provider Encounter Details Date Type Department Care Team (Latest Contact Info) Description 10/01/2000 Outpatient Historical [facility] Sharan Gómez Jr., MD [address] [place] [address] Endocarditis, valve unspecified, unspecified cause (Primary Dx); Other and unspecified hyperlipidemia; Osteoarthrosis, unspecified whether generalized or localized, unspecified site Social History Tobacco Use Types Packs/Day Years Used Date Smoking Tobacco: Never Assessed Comments Unknown Sex and Gender Information Value Date Recorded Sex Assigned at Not on file Legal Sex Female 5:42 AM MINER ASSISTANT Gender Identity Not on file Sexual Orientation Not on file documented as of this encounter Plan of Treatment Not on file documented as of this encounter Visit Diagnoses Diagnosis Endocarditis, valve unspecified, unspecified cause- Primary Other and unspecified hyperlipidemia Osteoarthrosis, unspecified whether generalized or localized, unspecified site documented in this encounter Care Teams Pulmonary Fellow Relationship Specialty Start Date End Date Sharan Gómez Jr., MD [address] [place] [address] PCP - General 08/10/05 documented as of this encounter
--- OUTSIDE RECORDS SUMMARY | 2025-06-25 06:25 | XMS_ITS | Encounter Summary ---
Author Organization [facility] Address [address] [facility] Attn: [place] [address] Care Team Providers Care Genetic Counselor Name Role Phone Rico Muñiz MD, Sharan Jaime Primary Care Provider Encounter Details Date Type Department Care Team (Late st Contact Info) Description 06/22/2000 Outpatient Historical Serge Arrington MD [address] [facility] [address] [place] [address] Social History Tobacco Use Types Packs/Day Years Used Date Smoking Tobacco: Never Assessed Comments Unknown Sex and Gender Information Value Date Recorded Sex Assigned at Not on file Legal Sex Female 5:42 AM CHANGE MANAGEMENT ANALYST Gender Identity Not on file Sexual Orientation Not on file documented as of this encounter Plan of Treatment Not on file documented as of this encounter Visit Diagnoses Not on filedocumented in this encounter Care Teams Genetic Counselor Relationship Specialty Start Date End Date Sharan Gómez Jr., MD [address] [place] [address] PCP - General 08/10/05 documented as of this encounter
--- OUTSIDE RECORDS SUMMARY | 2025-06-25 06:25 | XMS_ITS | Encounter Summary ---
Author Organization [facility] Address [address] [place] [address] Care Team Providers Care Digital Commentator Name Role Phone Rico Muñiz MD, Sharan Jaime Primary Care Provider Encounter Details Date Type Department Care Team (Late st Contact Info) Description 10/25/2020 Lab Requisition [facility] [address] [place] [address] Paulina Peterson MD [address] [place] [address] Social History Tobacco Use Types Packs/Day Years Used Date Smoking Tobacco: Never Assessed Comments Unknown Sex and Gender Information Value Date Recorded Sex Assigned at Not on file Legal Sex Female 5:42 AM NEURO INTENSIVIST PHYSICIAN Gender Identity Not on file Sexual Orientation Not on file documented as of this encounter Plan of Treatment Not on file documented as of this encounter Procedures Procedure Name Priority Date/Time Associated Diagnosis Comments PROTIME-INR Routine 10/25/2020 5:18 AM NEURO INTENSIVIST PHYSICIAN documented in this encounter Results * (ABNORMAL) PROTIME-INR (10/25/2020 5:18 AM NEURO INTENSIVIST PHYSICIAN) PROTIME 34.3(H) 11.9 - 15.5 Seconds 10/25/2020 7:01 PM NEURO INTENSIVIST PHYSICIAN [facility] INR 3.3(H) 0.8 - 1.2 10/25/2020 7:01 PM NEURO INTENSIVIST PHYSICIAN [facility] Blood Collection / Unknown 10/25/2020 5:18 AM NEURO INTENSIVIST PHYSICIAN 10/25/2020 6:44 PM NEURO INTENSIVIST PHYSICIAN Narrative [facility] - 10/25/2020 7:01 PM NEURO INTENSIVIST PHYSICIAN Expected Values for INR: DVT/PE Goal INR 2.5; range 2.0 - 3.0 Valve Replacement Tissue Goal INR 2.5; range 2.0 - 3.0 Valve Replacement Mechanical Goal INR 3.0; range 2.5 - 3.5 POST-IN Goal INR 2.5; range 2.0 - 3.0 or Goal INR 3.0; range 2.5 - 3.5 Atrial Fibrillation Goal INR 2.5; range 2.0 - 3.0 Ischemic Stroke Goal INR 2.5; range 2.0 - 3.0 For additional information see Guidelines for Anticoagulation available from the pharmacy [facility] Paulina Peterson MD HEMATOLOGY ORDERABLES Maame smart Result [facility] [address] [place] [address] documented in this encounter Visit Diagnoses Not on filedocumented in this encounter Care Teams Digital Commentator Relationship Specialty Start Date End Date Sharan Gómez Jr., MD [address] [place] [address] PCP - General 08/10/05 documented as of this encounter
--- OUTSIDE RECORDS SUMMARY | 2025-06-25 06:25 | XMS_ITS | Encounter Summary ---
Author Organization [facility] Address [address] [place] [address] Care Team Providers Care Unix Manager Name Role Phone Rico Muñiz MD, Sharan Jaime Primary Care Provider Encounter Details Date Type Department Care Team (Latest Contact Info) Description 08/03/2000 Outpatient Historical [facility] Sharan Gómez Jr., MD [address] [place] [address] Pure hypercholesterolem (Primary Dx); Other and unspecified hyperlipidemia; Dietary surveil/child guidance counselor Social History Tobacco Use Types Packs/Day Years Used Date Smoking Tobacco: Never Assessed Comments Unknown Sex and Gender Information Value Date Recorded Sex Assigned at Not on file Legal Sex Female 5:42 AM PHYSICIAN OFFICE SPECIALIST Gender Identity Not on file Sexual Orientation Not on file documented as of this encounter Plan of Treatment Not on file documented as of this encounter Visit Diagnoses Diagnosis Pure hypercholesterolem- Primary Pure hypercholesterolemia Other and unspecified hyperlipidemia Dietary surveil/child guidance counselor Dietary surveillance and counseling documented in this encounter Care Teams Unix Manager Relationship Specialty Start Date End Date Sharan Gómez Jr., MD [address] [place] [address] PCP - General 08/10/05 documented as of this encounter
--- OUTSIDE RECORDS SUMMARY | 2025-06-25 06:25 | XMS_ITS | Encounter Summary ---
Author Organization [facility] Address [address] [place] [address] Care Team Providers Care Dobby Loom Chain Pegger Name Role Phone Rico Muñiz MD, Sharan Jaime Primary Care Provider Encounter Details Date Type Department Care Team (Latest Contact Info) Description 12/21/2000 Outpatient Historical [facility] Sharan Gómez Jr., MD [address] [place] [address] Pure hypercholesterolem (Primary Dx); Other and unspecified hyperlipidemia; Esophageal reflux; FPC (current) use of anticoagulants Social History Tobacco Use Types Packs/Day Years Used Date Smoking Tobacco: Never Assessed Comments Unknown Sex and Gender Information Value Date Recorded Sex Assigned at Not on file Legal Sex Female 5:42 AM CENTER MACHINE 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 Gender Identity Not on file Sexual Orientation Not on file documented as of this encounter Plan of Treatment Not on file documented as of this encounter Visit Diagnoses Diagnosis Pure hypercholesterolem- Primary Pure hypercholesterolemia Other and unspecified hyperlipidemia Esophageal reflux FPC (current) use of anticoagulants Long-term (current) use of anticoagulants documented in this encounter Care Teams Dobby Loom Chain Pegger Relationship Specialty Start Date End Date Sharan Gómez Jr., MD [address] [place] [address] PCP - General 08/10/05 documented as of this encounter
--- OUTSIDE RECORDS SUMMARY | 2025-06-25 06:25 | XMS_ITS | Encounter Summary ---
Author Organization [facility] Address [address] [place] [address] Care Team Providers Care On Site Property Manager Name Role Phone Rico Muñiz MD, Sharan Jaime Primary Care Provider Encounter Details Date Type Department Care Team (Latest Contact Info) Description 07/04/2005 Outpatient Historical [facility] John [address] [place] [address] Serge Arrington MD [address] [place] [address] ROUTINE FRONT END ENGINEER EXAMINATION (Primary Dx) Social History Tobacco Use Types Packs/Day Years Used Date Smoking Tobacco: Never Assessed Comments Unknown Sex and Gender Information Value Date Recorded Sex Assigned at Not on file Legal Sex Female 5:42 AM BUILDING RIGGER Gender Identity Not on file Sexual Orientation Not on file documented as of this encounter Plan of Treatment Not on file documented as of this encounter Visit Diagnoses Diagnosis Routine gynecological examination- Primary documented in this encounter Care Teams On Site Property Manager Relationship Specialty Start Date End Date Sharan Gómez Jr., MD [address] [place] [address] PCP - General 08/10/05 documented as of this encounter
--- OUTSIDE RECORDS SUMMARY | 2025-06-25 06:25 | XMS_ITS | Encounter Summary ---
Author Organization [facility] Address [address] [place] [address] Care Team Providers Care Superintendent Compressor Stations Name Role Phone Rico Muñiz MD, Sharan Jaime Primary Care Provider Encounter Details Date Type Department Care Team (Latest Contact Info) Description 12/31/2000 Outpatient Historical [facility] Medicine [place] [address] [facility] [address] [place] [address] Larry Olvera MD Screening for malignant neoplasm of the rectum (Primary Dx) Social History Tobacco Use Types Packs/Day Years Used Date Smoking Tobacco: Never Assessed Comments Unknown Sex and Gender Information Value Date Recorded Sex Assigned at Not on file Legal Sex Female 5:42 AM REGIONAL FACILITIES SPECIALIST Gender Identity Not on file Sexual Orientation Not on file documented as of this encounter Plan of Treatment Not on file documented as of this encounter Visit Diagnoses Diagnosis Screening for malignant neoplasm of the rectum- Primary documented in this encounter Care Teams Superintendent Compressor Stations Relationship Specialty Start Date End Date Sharan Gómez Jr., MD [address] [place] [address] PCP - General 08/10/05 documented as of this encounter
--- OUTSIDE RECORDS SUMMARY | 2025-06-25 06:25 | XMS_ITS | Encounter Summary ---
Author Organization [facility] Address [address] [place] [address] Care Team Providers Care Recruiter Specialist Name Role Phone Rico Muñiz MD, Sharan Jaime Primary Care Provider Encounter Details Date Type Department Care Team (Latest Contact Info) Description 02/03/2002 Outpatient Historical [facility] Sharan Gómez Jr., MD [address] [place] [address] HEART VALVE REPLAC NEC (Primary Dx); [facility] ANTICOAG USE Social History Tobacco Use Types Packs/Day Years Used Date Smoking Tobacco: Never Assessed Comments Unknown Sex and Gender Information Value Date Recorded Sex Assigned at Not on file Legal Sex Female 5:42 AM PRODUCTION TRUCK DRIVER Gender Identity Not on file Sexual Orientation Not on file documented as of this encounter Plan of Treatment Not on file documented as of this encounter Visit Diagnoses Diagnosis Heart valve replaced by other means- Primary senior care (current) use of anticoagulants Long-term (current) use of anticoagulants documented in this encounter Care Teams Recruiter Specialist Relationship Specialty Start Date End Date Sharan Gómez Jr., MD [address] [place] [address] PCP - General 08/10/05 documented as of this encounter
--- OUTSIDE RECORDS SUMMARY | 2025-06-25 06:25 | XMS_ITS | Encounter Summary ---
Author Organization [facility] Address [address] [facility] Attn: [place] [address] Care Team Providers Care Ground Wirer Name Role Phone Rico Muñiz MD, Sharan Jaime Primary Care Provider Encounter Details Date Type Department Care Team (Late st Contact Info) Description 11/09/2000 Outpatient Historical Sharan Gómez Jr., MD [address] [place] [address] Social History Tobacco Use Types Packs/Day Years Used Date Smoking Tobacco: Never Assessed Comments Unknown Sex and Gender Information Value Date Recorded Sex Assigned at Not on file Legal Sex Female 5:42 AM COPRA SAMPLER Gender Identity Not on file Sexual Orientation Not on file documented as of this encounter Plan of Treatment Not on file documented as of this encounter Visit Diagnoses Not on filedocumented in this encounter Care Teams Ground Wirer Relationship Specialty Start Date End Date Sharan Gómez Jr., MD [address] [place] [address] PCP - General 08/10/05 documented as of this encounter
--- OUTSIDE RECORDS SUMMARY | 2025-06-25 06:25 | XMS_ITS | Encounter Summary ---
Author Organization [facility] Address [address] [place] [address] Care Team Providers Care Core Loader Name Role Phone Rico Muñiz MD, Sharan Jaime Primary Care Provider Encounter Details Date Type Department Care Team (Latest Contact Info) Description 02/29/2000 Outpatient Historical [facility] Sharan Gómez Jr., MD [address] [place] [address] Pure hypercholesterolem (Primary Dx); Heart valve replaced by other means; Osteoporosis, unspecified; correction (current) use of anticoagulants Social History Tobacco Use Types Packs/Day Years Used Date Smoking Tobacco: Never Assessed Comments Unknown Sex and Gender Information Value Date Recorded Sex Assigned at Not on file Legal Sex Female 5:42 AM PIPE INSULATOR Gender Identity Not on file Sexual Orientation Not on file documented as of this encounter Plan of Treatment Not on file documented as of this encounter Visit Diagnoses Diagnosis Pure hypercholesterolem- Primary Pure hypercholesterolemia Heart valve replaced by other means Osteoporosis, unspecified termite control servicer (current) use of anticoagulants Long-term (current) use of anticoagulants documented in this encounter Care Teams Core Loader Relationship Specialty Start Date End Date Sharan Gómez Jr., MD [address] [place] [phone] PCP - General 08/10/05 documented as of this encounter
--- OUTSIDE RECORDS SUMMARY | 2025-06-25 06:25 | XMS_ITS | Encounter Summary ---
Author Organization [facility] Address [address] [place] [address] Care Team Providers Care Poultry Field Service Technician Name Role Phone Rico Muñiz MD, Sharan Jaime Primary Care Provider Encounter Details Date Type Department Care Team (Latest Contact Info) Description 04/07/2002 Outpatient Historical [facility] Sharan Gómez Jr., MD [address] [place] [address] ENDOCARDITIS NOS (Primary Dx); DIABETES UNCOMPL ADULT-TYPE II (CMS/HCC); HYPERTENSION NOS; AFTERCARE COMMISSION SPECIALIST ANTICOAG USE Social History Tobacco Use Types Packs/Day Years Used Date Smoking Tobacco: Never Assessed Comments Unknown Sex and Gender Information Value Date Recorded Sex Assigned at Not on file Legal Sex Female 5:42 AM CAMERA PROTOTYPING ENGINEER Gender Identity Not on file Sexual Orientation Not on file documented as of this encounter Plan of Treatment Not on file documented as of this encounter Visit Diagnoses Diagnosis Endocarditis, valve unspecified, unspecified cause- Primary Type II or unspecified type diabetes mellitus without mention of complication, not stated as uncontrolled Unspecified essential hypertension exterminator termite (current) use of anticoagulants Long-term (current) use of anticoagulants documented in this encounter Care Teams Poultry Field Service Technician Relationship Specialty Start Date End Date Sharan Gómez Jr., MD [address] [place] [address] PCP - General 08/10/05 documented as of this encounter
--- OUTSIDE RECORDS SUMMARY | 2025-06-25 06:25 | XMS_ITS | Encounter Summary ---
Author Organization [facility] Address [address] [place] [address] Care Team Providers Care Registered Nurse Name Role Phone Rico Muñiz MD, Sharan Jaime Primary Care Provider Encounter Details Date Type Department Care Team (Latest Contact Info) Description 10/10/1999 Outpatient Historical [facility] Sharan Gómez Jr., MD [address] [place] [address] Unspecified circulatory system disorder (Primary Dx); Unspecified essential hypertension; local intermodal truck driver (current) use of anticoagulants Social History Tobacco Use Types Packs/Day Years Used Date Smoking Tobacco: Never Assessed Comments Unknown Sex and Gender Information Value Date Recorded Sex Assigned at Not on file Legal Sex Female 5:42 AM EQUIPMENT VALIDATION ENGINEER Gender Identity Not on file Sexual Orientation Not on file documented as of this encounter Plan of Treatment Not on file documented as of this encounter Visit Diagnoses Diagnosis Unspecified circulatory system disorder- Primary Unspecified essential hypertension local intermodal truck driver (current) use of anticoagulants Long-term (current) use of anticoagulants documented in this encounter Care Teams Registered Nurse Relationship Specialty Start Date End Date Sharan Gómez Jr., MD [address] [place] [address] PCP - General 08/10/05 documented as of this encounter
--- OUTSIDE RECORDS SUMMARY | 2025-06-25 06:25 | XMS_ITS | Encounter Summary ---
Author Organization [facility] Address [address] Attn: [place] [address] Care Team Providers Care Weekday Babysitter Name Role Phone Rico Muñiz MD, Sharan Jaime Primary Care Provider Encounter Details Date Type Department Care Team (Late st Contact Info) Description 01/04/2001 Outpatient Historical Sharan Gómez Jr., MD [address] [place] [address] Social History Tobacco Use Types Packs/Day Years Used Date Smoking Tobacco: Never Assessed Comments Unknown Sex and Gender Information Value Date Recorded Sex Assigned at Not on file Legal Sex Female 5:42 AM EXPEDITER Gender Identity Not on file Sexual Orientation Not on file documented as of this encounter Plan of Treatment Not on file documented as of this encounter Visit Diagnoses Not on filedocumented in this encounter Care Teams Weekday Babysitter Relationship Specialty Start Date End Date Sharan Gómez Jr., MD [address] [place] [address] PCP - General 08/10/05 documented as of this encounter
--- OUTSIDE RECORDS SUMMARY | 2025-06-25 06:25 | XMS_ITS | Encounter Summary ---
Author Organization [facility] Address [address] [place] [address] Care Team Providers Care Shiftman Name Role Phone Rico Muñiz MD, Sharan Jaime Primary Care Provider Encounter Details Date Type Department Care Team (Latest Contact Info) Description 06/20/1999 Outpatient Historical [facility] Int Luis [facility] John [address] [place] [phone] Serge Arrington MD [address] [place] [address] Mitral valve disorder (Primary Dx); Unspecified essential hypertension; Other and unspecified hyperlipidemia; Hematuria Social History Tobacco Use Types Packs/Day Years Used Date Smoking Tobacco: Never Assessed Comments Unknown Sex and Gender Information Value Date Recorded Sex Assigned at Not on file Legal Sex Female 5:42 AM PHOTOGRAPHY AND PRINTS CURATOR Gender Identity Not on file Sexual Orientation Not on file documented as of this encounter Plan of Treatment Not on file documented as of this encounter Visit Diagnoses Diagnosis Mitral valve disorder- Primary Mitral valve disorders Unspecified essential hypertension Other and unspecified hyperlipidemia Hematuria documented in this encounter Care Teams Shiftman Relationship Specialty Start Date End Date Sharan Gómez Jr., MD [address] [place] [phone] PCP - General 08/10/05 documented as of this encounter
--- OUTSIDE RECORDS SUMMARY | 2025-06-25 06:25 | XMS_ITS | Encounter Summary ---
Author Organization [facility] Address [address] [place] [address] Care Team Providers Care Heel Sewer Name Role Phone Rico Muñiz MD, Sharan Jaime Primary Care Provider Encounter Details Date Type Department Care Team (Latest Contact Info) Description 06/21/2000 Outpatient Historical [facility] Int Luis AFaisal Lopez [address] [place] [phone] Serge Arrington MD [address] [place] [address] Mitral valve disorder (Primary Dx); Unspecified essential hypertension; Unspecified gastritis and gastroduodenitis without mention of hemorrhage Social History Tobacco Use Types Packs/Day Years Used Date Smoking Tobacco: Never Assessed Comments Unknown Sex and Gender Information Value Date Recorded Sex Assigned at Not on file Legal Sex Female 5:42 AM TILE DESIGNER Gender Identity Not on file Sexual Orientation Not on file documented as of this encounter Plan of Treatment Not on file documented as of this encounter Visit Diagnoses Diagnosis Mitral valve disorder- Primary Mitral valve disorders Unspecified essential hypertension Unspecified gastritis and gastroduodenitis without mention of hemorrhage documented in this encounter Care Teams Heel Sewer Relationship Specialty Start Date End Date Sharan Gómez Jr., MD [address] [place] [address] PCP - General 08/10/05 documented as of this encounter
--- OUTSIDE RECORDS SUMMARY | 2025-06-25 06:25 | XMS_ITS | Encounter Summary ---
Author Organization [facility] Address [address] [place] [address] Care Team Providers Care Mental Health Orderly Name Role Phone Rico Muñiz MD, Sharan Jaime Primary Care Provider Encounter Details Date Type Department Care Team (Late st Contact Info) Description 2020 Lab Requisition [facility] Laboratory Services [address] [place] [phone] Tabatha Lynn, [facility] [address] [place] [address] Social History Tobacco Use Types Packs/Day Years Used Date Smoking Tobacco: Never Assessed Comments Unknown Sex and Gender Information Value Date Recorded Sex Assigned at Not on file Legal Sex Female 5:42 AM ENVIRONMENTAL MONITORING TECHNICIAN Gender Identity Not on file Sexual Orientation Not on file documented as of this encounter Plan of Treatment Not on file documented as of this encounter Procedures Procedure Name Priority Date/Time Associated Diagnosis Comments PROTIME-INR Routine 2020 6:14 AM ENVIRONMENTAL MONITORING TECHNICIAN documented in this encounter Results * (ABNORMAL) PROTIME-INR (2020 6:14 AM ENVIRONMENTAL MONITORING TECHNICIAN) PROTIME 23.0(H) 11.9 - 15.5 Seconds 2020 7:28 PM ENVIRONMENTAL MONITORING TECHNICIAN [facility] INR 2.0(H) 0.8 - 1.2 2020 7:28 PM ENVIRONMENTAL MONITORING TECHNICIAN [id number] Blood Collection / Unknown 2020 6:14 AM ENVIRONMENTAL MONITORING TECHNICIAN 2020 7:05 PM ENVIRONMENTAL MONITORING TECHNICIAN Narrative [facility] - 2020 7:28 PM ENVIRONMENTAL MONITORING TECHNICIAN Expected Values for INR: DVT/PE Goal INR 2.5; range 2.0 - 3.0 Valve Replacement Tissue Goal INR 2.5; range 2.0 - 3.0 Valve Replacement Mechanical Goal INR 3.0; range 2.5 - 3.5 POST-MD Goal INR 2.5; range 2.0 - 3.0 or Goal INR 3.0; range 2.5 - 3.5 Atrial Fibrillation Goal INR 2.5; range 2.0 - 3.0 Ischemic Stroke Goal INR 2.5; range 2.0 - 3.0 For additional information see Guidelines for Anticoagulation available from the pharmacy Aspen Mitchell, Pharm D. Tabatha Neff STRUCTURAL STEEL WORKER HELPER HEMATOLOGY ORDERABLES Final Result Performing Organization Address City/State/[facility] Co de Phone Number [facility] [address] [place] [address] documented in this encounter Visit Diagnoses Not on filedocumented in this encounter Care Teams Mental Health Orderly Relationship Specialty Start Date End Date Sharan Gómez Jr., MD [address] [place] [address] PCP - General 08/10/05 documented as of this encounter
--- OUTSIDE RECORDS SUMMARY | 2025-06-25 06:25 | XMS_ITS | Encounter Summary ---
Author Organization [facility] Address [address] [place] [address] Care Team Providers Care Staff Development Coordinator Rn Name Role Phone Rico Muñiz MD, Sharan Jaime Primary Care Provider Encounter Details Date Type Department Care Team (Latest Contact Info) Description 04/12/2001 Outpatient Historical [facility] Sharan Gómez Jr., MD [address] [place] [address] Osteoarthrosis, unspecified whether generalized or localized, unspecified site (Primary Dx); Heart valve replaced by other means; long-term (current) use of anticoagulants Social History Tobacco Use Types Packs/Day Years Used Date Smoking Tobacco: Never Assessed Comments Unknown Sex and Gender Information Value Date Recorded Sex Assigned at Not on file 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 Gender Identity Not on file Sexual Orientation Not on file documented as of this encounter Plan of Treatment Not on file documented as of this encounter Visit Diagnoses Diagnosis Osteoarthrosis, unspecified whether generalized or localized, unspecified site- Primary Heart valve replaced by other means long-term (current) use of anticoagulants Long-term (current) use of anticoagulants documented in this encounter Care Teams Staff Development Coordinator Rn Relationship Specialty Start Date End Date Sharan Gómez Jr., MD [address] [place] [address] PCP - General 08/10/05 documented as of this encounter
--- OUTSIDE RECORDS SUMMARY | 2025-06-25 06:25 | XMS_ITS | Encounter Summary ---
Author Organization [facility] Address [address] [place] [address] Care Team Providers Care Secret Code Expert Name Role Phone Rico Muñiz MD, Sharan Jaime Primary Care Provider Encounter Details Date Type Department Care Team (Latest Contact Info) Description 06/24/2001 Outpatient Historical [facility] Imaging Services-Faisal Lopez Michelle [address] [place] [address] Serge Arrington MD [address] [place] [address] Unspecified congenital anomaly of heart (Primary Dx) Social History Tobacco Use Types Packs/Day Years Used Date Smoking Tobacco: Never Assessed Comments Unknown Sex and Gender Information Value Date Recorded Sex Assigned at Not on file 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
--- OUTSIDE RECORDS SUMMARY | 2025-06-25 06:25 | XMS_ITS | Encounter Summary ---
Author Organization [facility] Address [address] [place] [address] Care Team Providers Care Pile Driving Supervisor Name Role Phone Rico Muñiz MD, Sharan Jaime Primary Care Provider Encounter Details Date Type Department Care Team (Latest Contact Info) Description 05/24/2000 Outpatient Historical [facility] Sharan Gómez Jr., MD [address] [place] [phone] Unspecified essential hypertension (Primary Dx); Osteoporosis, unspecified Social History Tobacco Use Types Packs/Day Years Used Date Smoking Tobacco: Never Assessed Comments Unknown Sex and Gender Information Value Date Recorded Sex Assigned at Not on file 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
--- NOTE | 2025-06-25 06:36 | XR_ITS ---
WS: [id number] Exam: XR chest 1V portable [id number] Date/Time of Exam: 06/25/2025 7:01 AM Reason For Exam: chest pain Comparison 03/10/2025. The lungs are fully expanded. No acute infiltrates. Chronic bibasal plaque atelectasis. No pleural effusions. Heart size is normal. The mediastinum is not widened. Signs of median sternotomy. S-shaped thoracolumbar scoliosis. Healed RIGHT proximal humeral fracture. XR/XR chest 1V portable [id number] IMPRESSION: 1. No acute cardiopulmonary finding. 2. Chronic bibasal plaque atelectasis.
--- NOTE | 2025-06-25 06:37 | W.ED.CHESTPA ---
HPI - Chest Pain General: Chief Complaint: Chest Pain Stated Complaint: cp History of Present Illness: 74-year-old female presents emergency room with complaint of chest pain. States she had chest pain that began shortly after she woke up around 530 this morning she took a single nitro at home and EMS was called and EMS gave another nitro. States pain is mostly resolved. She has a known history of atrial fibrillation she has a mechanical mitral valve for which she is on Coumadin. She does have a known history of coronary artery disease as previously had a statin. Associated symptoms: Deny abdominal pain, dyspnea or fever(s) Related Data Home Medications ?Medication ?Instructions ?Recorded ?Confirmed nitroglycerin 0.4 mg sublingual 0.4 mg sublingual Q5M PRN chest 11/07/19 06/25/25 tablet (Nitrostat) pains levothyroxine 75 mcg tablet 75 mcg PO DAILY@0700 hypothyroidism 11/11/20 06/25/25 (Euthyrox) tramadol 50 mg tablet 50 mg PO Q6H PRN Pain 11/11/20 06/25/25 potassium chloride 20 mEq 20 meq PO BID@0700,1900 12/22/20 06/25/25 tablet,extended release meclizine 12.5 mg tablet 12.5 mg PO Q6H PRN nausea and 04/19/21 06/25/25 vomiting bismuth subsalicylate 525 mg/15 mL 525 mg PO Q8H PRN 08/15/21 06/25/25 oral suspension (Pepto-Bismol Max Nausea/vomiting/diarrhea St) mirtazapine 15 mg tablet 15 mg PO QAM 05/21/24 06/25/25 pantoprazole 40 mg tablet,delayed 40 mg PO QAM 12/05/24 06/25/25 release amiodarone 200 mg tablet 200 mg PO PRN PRN if blood 01/31/25 06/25/25 pressure is over 120 cetirizine 10 mg tablet (Zyrtec) 10 mg PO PRN PRN Allergy Symptoms 01/31/25 06/25/25 hydroxyzine HCl 25 mg tablet 25 mg PO TID PRN Anxiety 01/31/25 06/25/25 ipratropium bromide 42 mcg (0.06 2 spray intranasal TID PRN 04/05/25 08/28/25 %) nasal spray ALLERGIES magnesium hydroxide 400 mg/5 mL 30 ml PO PRN PRN bowel movemaent 01/31/25 06/25/25 oral suspension (Milk of Magnesia) polyethylene glycol 3350 17 17 g PO QAM Constipation 01/31/25 06/25/25 gram/dose oral powder (Miralax) warfarin 2.5 mg tablet See Rx Instructions .Route .COMPLEX 01/31/25 06/25/25 Held on 04/22/25. Instructions: Resume on 04/26/25. warfarin 3 mg tablet See Rx Instructions .Route .COMPLEX 05/27/25 06/25/25 folic acid 1 mg tablet 1 mg PO DAILY 06/22/25 06/25/25 acetaminophen 500 mg tablet 1,000 mg PO Q8H 06/25/25 06/25/25 [id number]-hcldzbhw-trt-turp-pet 1 ea topical PRN PRN thick toe 06/25/25 06/25/25 topical ointment nails cyanocobalamin (vitamin B-12) 2,000 mcg sublingual DAILY 06/25/25 06/25/25 1,000 mcg sublingual tablet methyl salicylate 30 %-menthol 10 1 applic topical TID PRN sore 06/25/25 06/25/25 % topical cream (Icy Hot) muscles spironolactone 25 mg tablet 25 mg PO QAM 06/25/25 06/25/25 Previous Rx's ?Medication ?Instructions ?Recorded furosemide 40 mg tablet 60 mg (1.5 x 40 mg) PO DAILY@0700 05/18/23 edema #135 tabs metoprolol tartrate 100 mg tablet 100 mg PO BID #180 tabs 12/05/24 galantamine 8 mg 24 hr 8 mg PO QAM 90 days #90 caps 05/06/25 capsule,extended release memantine 5 mg tablet 5 mg PO BID #180 tabs 05/06/25 Allergies Allergy/AdvReac Type Severity Reaction Status Date / Time diltiazem (From Cardize) Allergy Unknown Verified 06/23/25 10:03 morphine Allergy Unknown Verified 06/23/25 10:03 Review of Systems Const: Denies: fever(s) or chills Card: Reports: chest pain Resp: Denies: dyspnea GI: Denies: abdominal pain : Denies: dysuria, urinary frequency or urinary urgency Musc: Denies: neck pain or back pain Skin/Breast: Denies: rash PFSH ED PFSH: Medical History Chronic anxiety History of iron deficiency anemia Alzheimer disease CKD (chronic kidney disease) stage 2, GFR 60-89 ml/min Hypertension CAD (coronary artery disease) CHF (congestive heart failure) Insomnia Hypothyroid Hyperlipidemia Chronic neck and back pain GERD (gastroesophageal reflux disease) Chronic atrial fibrillation Chronic constipation Surgical History History of heart artery stent Coronary angioplasty/stent placement in 2011 and in 2012 Hx of colonoscopy 2017 H/O esophagogastroduodenoscopy 2011, 2016, and 2017 S/P cholecystectomy H/O section Mitral valve replaced valve replacement 1994 Family History Other CAD (coronary artery disease) Diabetes Social History Smoking and tobacco/nicotine status: never used tobacco/nicotine Alcohol intake: never Substance/Drug Use: never Housing: Assisted Living Facility Marital status: Single Number of children: 1 Current occupational status: disabled Current gender identity: Female Female Reproductive History: Para: 1 Physical Exam Const: GENERAL APPEARANCE: cooperative ORIENTATION/CONSCIOUSNESS: Yes awake, Yes oriented to person, Yes oriented to place and Yes oriented to time HENMT: COMMON NORMALS: normocephalic, atraumatic and hearing grossly normal bilaterally HEAD & SCALP: normocephalic and atraumatic Resp: COMMON NORMALS: normal respiratory effort, No retractions, No use of accessory muscles and clear to auscultation bilaterally AUSCULTATION: clear to auscultation bilaterally Cardio: COMMON NORMALS: regular rate, regular rhythm and No murmurs present (Cardio) RATE: regular rate RHYTHM: regular rhythm GI: COMMON NORMALS: Soft to palpation and No hepatosplenomegaly present AUSCULTATION: Yes normoactive bowel sounds PALPATION: Yes Soft to palpation, No Tenderness to palpation present (GI), No Guarding due to palpation present (GI) and Yes No hepatosplenomegaly present Extremity: COMMON NORMALS: normal to inspection, capillary refill normal, no clubbing, cyanosis or edema, no calf tenderness and no pedal edema Neuro: SENSORIUM/ORIENTATION: Yes oriented to person, Yes oriented to place and Yes oriented to time Skin: COMMON NORMALS: no rashes or lesions noted GENERAL SKIN EXAM: no rashes or lesions noted Course Vital Signs: Vital signs: Vital Signs Temperature 98.3 F 06/25/25 06:24 Pulse Rate 71 06/25/25 08:47 Respiratory Rate 16 06/25/25 08:47 Blood Pressure 121/86 06/25/25 08:47 Pulse Oximetry 96 06/25/25 08:47 Oxygen Delivery Me thod Room Air 06/25/25 06:24 MDM - Chest Pain Medical Decision Making Heart score is 7. Unstable angina with chest pain onset with rest and relieved by nitro. Will admit patient to medicine consult cardiology. Her second EKG shows a little subtle ST depression in some of the inferior leads no reciprocal changes she is not having any pain at this time. Medical Records Lexiscan sestamibi stress test July 2023 IMPRESSIONS 1. Myocardial perfusion imaging revealing small area of slightly decreased persistent decreased tracer uptake in the mid inferolateral and apical lateral regions suggesting myocardial scarring versus attenuation artifact 2. Normal LV ejection fraction of 64% 3. LV wall motion analysis revealing no gross wall motion abnormalities. 4. Normal LV volume Low probability for coronary ischemia, based on the above findings. Compared to the study from 08/19/2018, there may not be a significant change Dr Katrin Petit MD [facility] (Electronically Signed) Final Date: 16 August 2023 Lab Data I reviewed the patient's lab results. 06/25/25 06:29 06/25/25 06:29 Radiology Impressions Chest X-Ray 06/25/25 06:36 IMPRESSION: 1. No acute cardiopulmonary finding. 2. Chronic bibasal plaque atelectasis. Laboratory Results WBC 5.41 10^3/uL (3.29-11.43) 06/25/25 06:29 RBC 3.37 10^6/uL (3.85-5.65) L 06/25/25 06:29 Hgb 11.60 g/dL (11.27-16.99) 06/25/25 06:29 Hct 35.2 % (36-47) L 06/25/25 06:29 MCV 104.5 fl (85-98) H 06/25/25 06:29 MCH 34.4 pg (27-33) H 06/25/25 06: MCHC 33.0 g/dL (30-55) 06/25/25 06: RDW 12.8 % (12.1-15.1) 06/25/25 06: Plt Count 231 10^3/cmm (157-399) 06/25/25 06: MPV 9.3 fL (7.4-10.4) 06/25/25 06: Neut % (Auto) 41.8 % 06/25/25 06: Lymph % (Auto) 40.1 % 06/25/25 06: [place] % (Auto) 8.9 % 06/25/25 06: Eos % (Auto) 7.0 % 06/25/25 06: Baso % (Auto) 2.0 % 06/25/25 06: Neut # (Auto) 2.26 10^3/uL (1.8-7.7) 06/25/25 06: Lymph # (Auto) 2.2 10^3/uL (0.8-4.8) 06/25/25 06: [place] # (Auto) 0.5 10^3/uL (0.2-0.9) 06/25/25 06: Eos # (Auto) 0.4 10^3/uL (0.0-0.8) 06/25/25 06: Baso # (Auto) 0.1 10^3/uL (0.0-0.1) 06/25/25 06: Nucleated RBC % (auto) 0 % 06/25/25 06: Nucleated RBCs # 0.0 /100WBC 06/25/25 06: PT 29.70 SECONDS (12.1-14.9) H 06/25/25 06: INR 2.64 (0.8-1.2) H 06/25/25 06: Sodium 140 mmol/L (136-145) 06/25/25 06: Potassium 4.4 mmol/L (3.5-5.1) 06/25/25 06: Chloride 107 mmol/L (98-107) 06/25/25 06: Carbon Dioxide 24 mmol/L (22-29) 06/25/25 06:29 Anion Gap 13.4 (5-19) 06/25/25 06:29 BUN 22 mg/dL (8-23) 06/25/25 06:29 Creatinine 0.9 mg/dL (0.5-0.9) 06/25/25 06:29 GFR Calculation Not Reportable 06/25/25 06:29 Glucose 97 mg/dL (65-115) 06/25/25 06:29 Calculated Osmolality 293 mOsm/kg (285-295) 06/25/25 06:29 Calcium 10.4 mg/dL (8.5-10.5) 06/25/25 06: Total Bilirubin 0.8 mg/dL (0.15-1.2) 06/25/25 06: AST 20 U/L (0-32) 06/25/25 06:29 ALT 11 U/L (0-33) 06/25/25 06:29 Alkaline Phosphatase 94 U/L (35-105) 06/25/25 06:29 Troponin T Baseline 13 ng/L (0-10) H 06/25/25 06:29 Troponin T 120 Minute 14.03 ng/L (0-10) H 06/25/25 08:27 Delta Troponin T 1.03 ABS# (0-10) 06/25/25 08:27 C-Reactive Protein 3.0 mg/L (0.0-4.9) 06/25/25 06:29 Total Protein 7.3 g/dL (6.6-8.7) 06/25/25 06: Albumin 4.3 g/dL (3.5-5.2) 06/25/25 06:29 Globulin 3.0 g/dL (1.3-4.6) 06/25/25 06:29 All radiology interpretation(s) finalized by discharge EKG Data EKG 1: Interpretation: EKG 06/25/2025 6:25 AM atrial fibrillation with a rate of 93. No acute ST elevation. Incomplete right bundle branch block. Compared to EKG 513 March 2025. EKG 2: Interpretation: EKG 06/25/2025 824 atrial fibrillation there are some subtle ST depression in 2 3 and aVF no reciprocal changes no ST elevation. Rate is 74 slight change in inferior leads from previous EKG nondiagnostic Clincial Decision Support The following clinical decision support tools were used to aid in care of the patient HEART Score -> History: Highly Suspicious, EKG: Non-specific Changes, Age: 65 or more yrs, Risk Factors: >/=3 Risk Factors, Troponin: Baseline Trop <16 ng/L. Resulting HEART Score: 7. Discharge Plan Discharge Patient Disposition: Admitted As Inpatient Clinical Impression: Unstable angina, Dementia, Mitral valve replaced, Chronic atrial fibrillation Condition: Stable Coding Level of Care Code ED Athletic Instructor for Indra Carmona
[2025-06-25 06:42] LABS: Hematocrit 35.2 % (36-47); Hemoglobin 11.60 g/dL (11.27-16.99); Mean Corpuscular HGB Conc 33.0 g/dL (30-55); Mean Corpuscular Hemoglobin 34.4 pg (27-33); Mean Corpuscular Volume 104.5 fl (85-98); Nucleated Red Blood Cells % 0 %; Platelet Count 231 10^3/cmm (157-399); Red Blood Count 3.37 10^6/uL (3.85-5.65); White Blood Count 5.41 10^3/uL (3.29-11.43)
[2025-06-25 06:49] LABS: INR 2.64 (0.8-1.2); Prothrombin Time 29.70 SECONDS (12.1-14.9)
[2025-06-25 06:54] LABS: Troponin(5th) Baseline 13 ng/L (0-10)
[2025-06-25 06:59] LABS: Alanine Aminotransferase 11 U/L (0-33); Albumin Level 4.3 g/dL (3.5-5.2); Alkaline Phosphatase 94 U/L (35-105); Anion Gap 13.4 (5-19); Aspartate Amino Transferase 20 U/L (0-32); Blood Urea Nitrogen 22 mg/dL (8-23); Calcium 10.4 mg/dL (8.5-10.5); Carbon Dioxide 24 mmol/L (22-29); Chloride 107 mmol/L (98-107); Creatinine Clr Calc Pharmacy 49.1439; Globulin 3.0 g/dL (1.3-4.6); Glucose 97 mg/dL (65-115); Osmolality Calculated 293 mOsm/kg (285-295); Potassium 4.4 mmol/L (3.5-5.1); Sodium 140 mmol/L (136-145); Total Protein 7.3 g/dL (6.6-8.7)
--- NOTE | 2025-06-25 07:05 | PC.PHAR ---
[facility]
--- NOTE | 2025-06-25 08:24 | ECG_ITS ---
[facility] Pat Name: Odilia Ulloa Department: Room: Gender: Female Salt Maker: : 1950 Requested By: Josse Contreras Order Number: [id number] Supriya MD: Souleymane Wood M.D. Measurements Intervals [place] Rate: 74 P: 0 KS: 0 QRS: 55 QRSD: 129 T: 88 QT: 427 QTc: 474 Interpretive Statements ATRIAL FIBRILLATION POSSIBLE RIGHT VENTRICULAR CONDUCTION DELAY [RSR (QR) IN V1/V2] MODERATE ST DEPRESSION [0.05+ mV ST DEPRESSION] Compared to ECG 06/22/2025 11:39:01 No significant changes Electronically Signed On 06-26-2025 22:55:26 CDT by Souleymane Wood M.D. [email or web address]
[2025-06-25 09:09] LABS: Troponin 5 2HR 14.03 ng/L (0-10); Troponin 5 2HR Delta 1.03 ABS# (0-10)
--- NOTE | 2025-06-25 10:13 | P.CONIM_ITS ---
<Statement entered by Dustin Worrell MD - 06/25/25 20:05> Patient was evaluated and cared for in conjunction with an advanced practice practitioner. I personally examined the patient and reviewed the chart and all pertinent data including imaging, telemetry, and laboratory results. I discussed the patient in detail with the advanced practice practitioner. Please see their note for complete H&P testing result and agreed upon plan of care for the patient. Providers/Reason For Consult 2 Consulting Physician/Specialty*: Dr Rosalio Worrell, interventional cardiology Reason for Consult*: Chest pain Requesting Physician: Dr. 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 She presented to the emergency room via EMS this morning due to chest pain, relieved by 2 sublingual nitroglycerin. She has had recurrence of the chest pain since she has been in the emergency room this morning. She cannot recall what the previous episode of chest pain felt like in 2011. She has not had any worsening shortness of breath, lower extremity edema, orthopnea. In reviewing Dr. Petit's last note with her 06/22/2025 she had been having intermittent chest pain, however it was atypical at that time, stress test was ordered. EKG in the ER shows atrial fibrillation, incomplete right bundle branch block, no acute ST elevation or depression. Most recent echocardiogram January 2024: LVEF 50 to 55%, biatrial dilation, mild mitral regurgitation, moderate to severe tricuspid regurgitation with mild pulmonary hypertension. Troponin series: 13-> 14. She is in atrial fibrillation with good ventricular rate control, 70 to 80 bpm. Blood pressure is well-controlled. Chest pain-free at this time. Review of Systems 2 Card: Reports: chest pain and irregular heart rhythm; Denies: palpitations, edema, swelling of feet/ankles, lightheadedness, syncope, pre-syncope, dyspnea on exertion, orthopnea or leg pain with exertion Resp: Reports: dyspnea; Denies: productive cough or wheezing GI: Denies: hematochezia : Denies: hematuria [place]/Lymph: Denies: easy bleeding Medications/Allergies Home Medications ?Medication ?Instructions ?Recorded ?Confirmed ?Last Taken ?Type nitroglycerin 0.4 mg sublingual 0.4 mg sublingual Q5M PRN chest 11/07/19 06/25/25 01/31/25 06:00 History tablet (Nitrostat) pains levothyroxine 75 mcg tablet 75 mcg PO DAILY@0700 hypot hyroidism 11/11/20 06/25/25 06/24/25 History (Euthyrox) tramadol 50 mg tablet 50 mg PO Q6H PRN Pain 06/25/25 04/22/25 History potassium chloride 20 mEq 20 meq PO BID@0700,1900 11/3006/25/25 06/24/25 History tablet,extended release meclizine 12.5 mg tablet 12.5 mg PO Q6H PRN nausea an d 04/19/21 06/25/25 04/21/25 History vomiting bismuth subsalicylate 525 mg/15 mL 525 mg PO Q8H PRN 1 06/25/25 Unknown History oral suspension (Pepto-Bismol Max Nausea/vomiting/diar rianna St) furosemide 40 mg tablet 60 mg (1.5 x 40 mg) PO DAILY @0700 05/18/23 06/25/25 06/24/25 Rx edema #135 tabs mirtazapine 15 mg tablet 15 mg PO QAM 05/21/2406/24/25 History metoprolol tartrate 100 mg tablet 100 mg PO BID #180 t abs 12/05/24 06/25/25 06/24/25 Rx pantoprazole 40 mg tablet,delayed 40 mg PO QAM 5 06/25/25 06/24/25 History release amiodarone 200 mg tablet 200 mg PO PRN PRN if blood 0 01/31/25 06/25/25 06/24/25 History pressure is over 120 cetirizine 10 mg tablet (Zyrtec) 10 mg PO PRN PRN Isaiah rgy Symptoms 01/31/25 06/25/25 05/27/25 History hydroxyzine HCl 25 mg tablet 25 mg PO TID PRN Anxiety 0406/25/25 04/22/25 History ipratropium bromide 42 mcg (0.06 2 spray intranasal TI D PRN 01/31/25 06/25/25 01/30/25 History %) nasal spray ALLERGIES magnesium hydroxide 400 mg/5 mL 30 ml PO PRN PRN bowel movemaent 01/31/25 06/25/25 Unknown History oral suspension (Milk of Magnesia) polyethylene glycol 3350 17 17 g PO QAM Constipation 0 01/31/25 06/25/25 06/24/25 History gram/dose oral powder (Miralax) warfarin 2.5 mg tablet See Rx Instructions .Route . COMPLEX 01/31/25 06/25/25 06/24/25 History Held on 04/22/25. Instructions: Resume on 04/26/25. galantamine 8 mg 24 hr 8 mg PO QAM 90 days #90 caps 05/06/25 06/25/25 06/24/25 Rx capsule,extended release memantine 5 mg tablet 5 mg PO BID #180 tabs 06/25/25 06/24/25 Rx warfarin 3 mg tablet See Rx Instructions .Route . COMPLEX 05/27/25 06/25/25 06/24/25 History folic acid 1 mg tablet 1 mg PO DAILY 06/22/2506/2506/24/25 History acetaminophen 500 mg tablet 1,000 mg PO Q8H 06/25/25 0 06/25/25 06/24/25 History bbudo-bxnhwmcr-lwd-turp-pet 1 ea topical PRN PRN thick toe 06/25/25 06/25/25 Unknown History topical ointment nails cyanocobalamin (vitamin B-12) 2,000 mcg sublingual [place] LY 06/25/25 06/25/25 06/24/25 History 1,000 mcg sublingual tablet methyl salicylate 30 %-menthol 10 1 applic topical TID PRN sore 06/25/25 06/25/25 Unknown History % topical cream (Icy Hot) muscles spironolactone 25 mg tablet 25 mg PO QAM 06/25/25 08/2 06/2206/24/25 History Allergies Allergy/AdvReac Type Severity Reaction Status Date / Time diltiazem (From Cardizem) Allergy Unknown Verified 06/23/25 10:03 morphine Allergy Unknown Verified 06/23/25 10:03 PFSH Acute 2 PFSH: Medical History Chronic anxiety History of iron deficiency anemia Alzheimer disease CKD (chronic kidney disease) stage 2, GFR 60-89 ml/min Hypertension CAD (coronary artery disease) CHF (congestive heart failure) Insomnia Hypothyroid Hyperlipidemia Chronic neck and back pain GERD (gastroesophageal reflux disease) Chronic atrial fibrillation Chronic constipation Surgical History History of heart artery stent Coronary angioplasty/stent placement in 2011 and in 2012 Hx of colonoscopy 2017 H/O esophagogastroduodenoscopy 2011, 2016, and 2017 S/P cholecystectomy H/O section Mitral valve replaced valve replacement 1994 Family History Other CAD (coronary artery disease) Diabetes Social History Smoking and tobacco/nicotine status: never used tobacco/nicotine Alcohol intake: never Substance/Drug Use: never Housing: Assisted Living Facility Marital status: Single Number of children: 1 Current occupational status: disabled Current gender identity: Female Female Reproductive History: Para: 1 Vitals/I&O/Wt Last Vital Signs Temp 98.3 F 06/25/25 06:24 Pulse 71 06/25/25 08:47 Resp 16 06/25/25 08:47 BP 121/86 06/25/25 08:47 Pulse Ox 96 06/25/25 08:47 O2 Del Method Room Air 06/25/25 06:24 Weight last 48 hrs Weight 152 lb Physical Exam 2 Const: COMMON NORMALS: no acute distress and patient oriented x3 Chest: COMMONS NORMALS: normal inspection of the chest and normal palpation of entire chest wall CHEST: Yes Symmetrical chest wall rise Resp: COMMON NORMALS: normal respiratory effort, No retractions, No use of accessory muscles and clear to auscultation bilaterally EFFORT & INSPECTION: Yes symmetric chest movement AUSCULTATION: clear to auscultation bilaterally Cardio: COMMON NORMALS: S1 normal heart sound present, S2 normal heart sound present, No gallops present (Cardio), No clicks present (Cardio), No murmurs present (Cardio) and No rub (Cardio) RHYTHM: abnormal rhythm irregularly irregular HEART SOUNDS: S1 normal heart sound present and S2 normal heart sound present PERIPHERAL PULSES: radial pulses present, posterior tibial pulses present and dorsalis pedis present Neuro: COMMON NORMALS: patient oriented x3 and moves all extremities Psych: COMMON NORMALS: mental status grossly normal and cooperative Data 06/25/25 06:29 06/25/25 06:29 A&P Assessment and plan 1. Mitral valve replaced: 2. Chronic atrial fibrillation: 3. Coronary artery disease: 4. Hyperlipidemia: 5. Hypertension: 6. Unstable angina: 7. CKD (chronic kidney disease) stage 2, GFR 60-89 ml/min: 8. Alzheimer disease: Plan: She has symptoms of unstable angina. Will start her on Protonix 40 mg daily and plan stress test for tomorrow. If chest pain returns, can start her on Nitropaste. INR is 2.6, will hold warfarin, will start on heparin infusion tomorrow and plan for possible coronary angiogram on Sunday. PDMP PDMP Reviewed: Not Reviewed Coding Level of Care Code Acute Code for g Fwd Diagnoses Mitral valve replaced Z95.2 Chronic atrial fibrillation I48.20 Coronary artery disease I25.10 Hyperlipidemia E78.5 Hypertension I10 Unstable angina I20.0 CKD (chronic kidney disease) stage 2, GFR 60-89 ml/min N18.2 Alzheimer disease G30.9; F02.80
--- NOTE | 2025-06-25 11:52 | PC.NURSE ---
Patient up to the restroom at this time. Tolerated the walk well. Patient back to bed and put back on monitors. Call light given to patient, verbalized how to use.
--- NOTE | 2025-06-25 12:51 | PM.HP ---
Providers/Chief Complaint Primary Care Provider: Danny Marmolejo MD Chief Complaint: cp History of Present Illness Odilia Ulloa is a 74 year old woman with chronic kidney disease (CKD), coronary artery disease (CAD) with prior coronary angioplasty and stenting, history of mitral valve replacement, congestive heart failure (CHF), atrial fibrillation (AF), hypertension (HTN), hyperlipidemia (HLD), iron deficiency anemia (HANNAH), Alzheimer?s disease, hyperthyroidism, gastroesophageal reflux disease (GERD) presented to the emergency department for chest pain which felt like pressure with pain in the chest without radiation where she received aspirin. Pain began shortly after waking at 5:30 AM. Took one nitroglycerin at home with partial relief. Emergency medical services (EMS) administered another nitroglycerin with pain mostly resolved. She is anticoagulated with warfarin for a mechanical mitral valve. Cardiology was consulted in the ED for symptoms concerning for unstable angina. Plans for further evaluation and treatment were discussed (see A/P). Review of Systems Const: Denies: fever(s), chills, body aches or malaise ENMT: Denies: throat pain Card: Reports: chest pain; Denies: edema, pre-syncope or dyspnea on exertion Resp: Denies: dyspnea, productive cough, change in phlegm color or hemoptysis GI: Denies: abdominal pain, nausea, vomiting, diarrhea, constipation, hematochezia or melena : Denies: flank pain, urinary frequency or hematuria Musc: Denies: back pain, joint swelling or joint redness Skin/Breast: Denies: rash or new lesions Neuro: Denies: headache(s) or confusion Medications/Allergies Home Medications ?Medication ?Instructions ?Recorded ?Confirmed ?Last Taken ?Type nitroglycerin 0.4 mg sublingual 0.4 mg sublingual Q5M PRN chest 11/07/19 06/25/25 01/31/25 06:00 History tablet (Nitrostat) pains levothyroxine 75 mcg tablet 75 mcg PO DAILY@0700 hypothyroidism 11/11/20 06/25/25 06/24/25 History (Euthyrox) tramadol 50 mg tablet 50 mg PO Q6H PRN Pain 11/11/20 06/25/25 04/22/25 History potassium chloride 20 mEq 20 meq PO BID@0700,1900 12/22/20 06/25/25 06/24/25 History tablet,extended release meclizine 12.5 mg tablet 12.5 mg PO Q6H PRN nausea and 04/19/21 06/25/25 04/21/25 History vomiting bismuth subsalicylate 525 mg/15 mL 525 mg PO Q8H PRN 08/15/21 06/25/25 Unknown History oral suspension (Pepto-Bismol Max Nausea/vomiting/diarrhea St) furosemide 40 mg tablet 60 mg (1.5 x 40 mg) PO DAILY@0700 05/18/23 06/25/25 06/24/25 Rx edema #135 tabs mirtazapine 15 mg tablet 15 mg PO QAM 05/21/24 06/25/25 06/24/25 History metoprolol tartrate 100 mg tablet 100 mg PO BID #180 tabs 12/05/24 06/25/25 06/24/25 Rx pantoprazole 40 mg tablet,delayed 40 mg PO QAM 12/05/24 06/25/25 06/24/25 History release amiodarone 200 mg tablet 200 mg PO PRN PRN if blood 01/31/25 06/25/25 06/24/25 History pressure is over 120 cetirizine 10 mg tablet (Zyrtec) 10 mg PO PRN PRN Allergy Symptoms 01/31/25 06/25/25 05/27/25 History hydroxyzine HCl 25 mg tablet 25 mg PO TID PRN Anxiety 01/31/25 06/25/25 04/22/25 History ipratropium bromide 42 mcg (0.06 2 spray intranasal TID PRN 01/31/25 06/25/25 01/30/25 History %) nasal spray ALLERGIES magnesium hydroxide 400 mg/5 mL 30 ml PO PRN PRN bowel movemaent 01/31/25 06/25/25 Unknown History oral suspension (Milk of Magnesia) polyethylene glycol 3350 17 17 g PO QAM Constipation 01/31/25 06/25/25 06/24/25 History gram/dose oral powder (Miralax) warfarin 2.5 mg tablet See Rx Instructions .Route .COMPLEX 01/31/25 06/25/25 06/24/25 History Held on 04/22/25. Instructions: Resume on 04/26/25. galantamine 8 mg 24 hr 8 mg PO QAM 90 days #90 caps 05/06/25 06/25/25 06/24/25 Rx capsule,extended release memantine 5 mg tablet 5 mg PO BID #180 tabs 05/06/25 06/25/25 06/24/25 Rx warfarin 3 mg tablet See Rx Instructions .Route .COMPLEX 05/27/25 06/25/25 06/24/25 History folic acid 1 mg tablet 1 mg PO DAILY 06/22/25 06/25/25 06/24/25 History acetaminophen 500 mg tablet 1,000 mg PO Q8H 06/25/25 06/25/25 06/24/25 History ebttu-vmkzweng-dkl-turp-pet 1 ea topical PRN PRN thick toe 06/25/25 06/25/25 Unknown History topical ointment nails cyanocobalamin (vitamin B-12) 2,000 mcg sublingual DAILY 06/25/25 06/25/25 06/24/25 History 1,000 mcg sublingual tablet methyl salicylate 30 %-menthol 10 1 applic topical TID PRN sore 06/25/25 06/25/25 Unknown History % topical cream (Icy Hot) muscles spironolactone 25 mg tablet 25 mg PO QAM 06/25/25 06/25/25 06/24/25 History Allergies Allergy/AdvReac Type Severity Reaction Status Date / Time diltiazem (From Cardizem) Allergy Unknown Verified 06/23/25 10:03 morphine Allergy Unknown Verified 06/23/25 10:03 PFSH Acute PFSH: Medical History Chronic anxiety History of iron deficiency anemia Alzheimer disease CKD (chronic kidney disease) stage 2, GFR 60-89 ml/min Hypertension CAD (coronary artery disease) CHF (congestive heart failure) Insomnia Hypothyroid Hyperlipidemia Chronic neck and back pain GERD (gastroesophageal reflux disease) Chronic atrial fibrillation Chronic constipation Surgical History History of heart artery stent Coronary angioplasty/stent placement in 2011 and in 2012 Hx of colonoscopy 2017 H/O esophagogastroduodenoscopy 2011, 2016, and 2017 S/P cholecystectomy H/O section Mitral valve replaced mechanical valve replacement 1994 Family History Other CAD (coronary artery disease) Diabetes Social History Smoking and tobacco/nicotine status: never used tobacco/nicotine Alcohol intake: never Substance/Drug Use: never Housing: Assisted Living Facility Marital status: Single Number of children: 1 Current occupational status: disabled Current gender identity: Female Female Reproductive History: Para: 1 Vitals/I&O/Wt Last Vital Signs Temp 98.3 F 06/25/25 06:24 Pulse 101 H 06/25/25 12:17 Resp 16 06/25/25 08:47 BP 129/69 06/25/25 12:17 Pulse Ox 95 06/25/25 12:17 O2 Del Method Room Air 06/25/25 12:17 Weight last 48 hrs Weight 68.946 kg Physical Exam Const: COMMON NORMALS: patient oriented x3 and alert GENERAL APPEARANCE: cooperative ORIENTATION/CONSCIOUSNESS: Yes awake HENMT: COMMON NORMALS: oropharynx normal Neck/C-Spine: COMMON NORMALS: no JVD Resp: COMMON NORMALS: normal respiratory effort and clear to auscultation bilaterally AUSCULTATION: clear to auscultation bilaterally Cardio: COMMON NORMALS: no JVD, regular rhythm, S1 normal heart sound present, S2 normal heart sound present and No murmurs present (Cardio) RHYTHM: regular rhythm HEART SOUNDS: S1 normal heart sound present and S2 normal heart sound present GI: COMMON NORMALS: Normal to inspection, nondistended, normoactive bowel sounds present, Soft to palpation and non-tender PALPATION: Yes Soft to palpation Extremity: COMMON NORMALS: no joint enlargement and no pedal edema Neuro: COMMON NORMALS: patient oriented x3 and moves all extremities SENSORIUM/ORIENTATION: Yes alert Skin: COMMON NORMALS: no rashes or lesions noted GENERAL SKIN EXAM: no rashes or lesions noted Data 06/25/25 06:29 06/25/25 06:29 A&P Assessment and plan 1. Unstable angina: Chest pain and possible unstable angina : Evaluated in ED with cardiology consultation due to symptoms concerning for unstable angina. Initial ECG: atrial fibrillation with incomplete right bundle branch block; T-wave flattening in aVL and V2; mild ST depression in V4?V5 (provider interpretation; official read pending). High-sensitivity troponins 13 (baseline) - 14 at 2 hours. Chest X-ray without acute cardiopulmonary findings; chronic bilateral. Reviewed vitals, CBC, INR, CMP, trop, CRP. Reviewed ED provider note and discussed w ED provider. Reviewed cardiology note. Reviewed outpatient cardiology note, with recent chest pain plans were being made for additional assessment by stress testing already during office visit on 06/22 prior to the current presentation. - Plan for stress testing tomorrow. - Start nitropaste if chest pain returns. - Cont PPI - Further consideration of coronary angiogram on Sunday if needed, with holding warfarin and bridging with heparin infusion. She is started on heparin drip for possible stable angina. Monitor for risk of bleeding. - Add aspirin and statin. - Continue metoprolol. - Check lipid profile. Plan: Atrial fibrillation : Atrial fibrillation present on ECG in ED. - Monitor on telemetry due to risk of arrhythmia. Mechanical mitral valve on anticoagulation : Patient anticoagulated with warfarin for mechanical mitral valve; INR 2.64 in ED. - Reassess INR given risk of subtherapeutic INR and mitral valve thrombosis. - If coronary angiography is pursued, hold warfarin and bridge with heparin infusion. Hyperlipidemia : History of HLD; lipid profile to be assessed. - Check lipid profile. - Start statin. - Chronic kidney disease (CKD) - Coronary artery disease (CAD) - Prior coronary angioplasty and stenting - History of mitral valve replacement (mechanical) - Congestive heart failure (CHF) - Atrial fibrillation (AF) - Hypertension (HTN) - Hyperlipidemia (HLD) - Iron deficiency anemia (HANNAH) - Alzheimer?s disease - Hyperthyroidism - Gastroesophageal reflux disease (GERD) - Other medical problems PDMP PDMP Reviewed: Not Reviewed Attestations Medical Necessity Statement*: Place in observation for additional assessment management of possible unstable angina. Diagnoses Unstable angina I20.0
[2025-06-25 13:00] LABS: Troponin 5 6HR 12.14 ng/L (0-10)
[2025-06-25 13:01] LABS: Troponin 5 6HR Delta -0.86 ng/L (0-12)
--- NOTE | 2025-06-25 13:53 | ECG_ITS ---
[facility] Test Date: 2025-06-25 Pat Name: Odilia Ulloa Department: Room: Gender: Female Compounding Pharmacy Technician: : 1950 Requested By: Josse Contreras Order Number: [id number] Supriya MD: Souleymane Wood M.D. Measurements Intervals [place] Rate: 79 P: 0 AR: 0 QRS: 46 QRSD: 130 T: 49 QT: 424 QTc: 487 Interpretive Statements ATRIAL FIBRILLATION POSSIBLE RIGHT VENTRICULAR CONDUCTION DELAY [RSR (QR) IN V1/V2] Compared to ECG 06/25/2025 08:24:18 ST (T wave) deviation no longer present Electronically Signed On 06-26-2025 22:54:32 CDT by Souleymane Wood M.D. [id number]
[2025-06-25 15:07] LABS: Cholesterol 209 mg/dL (0-200); HDL Cholesterol 54 mg/dL (60-100); Triglycerides 94 mg/dL (0-150)
[2025-06-25] MEDS: heparin drip 25,000 UNIT/500 ML PREMIX 20 UNIT IV (17:10)
[2025-06-25] MEDS: heparin 5,000 unit/mL INJ 1 mL IVP (17:11)
[2025-06-26] VITALS (7 sets, daily range): BP systolic 97–165; BP diastolic 56–90; PULSE 62–91; RESP 16–20; TEMP 36.4–37; O2SAT 92–95
[2025-06-26 01:00] LABS: Partial Thromboplastin Time > 250.0 SECONDS (23.9-36.7)
[2025-06-26 04:16] LABS: Hematocrit 32.6 % (36-47); Hemoglobin 10.50 g/dL (11.27-16.99); Mean Corpuscular HGB Conc 32.2 g/dL (30-55); Mean Corpuscular Hemoglobin 33.9 pg (27-33); Mean Corpuscular Volume 105.2 fl (85-98); Nucleated Red Blood Cells % 0 %; Platelet Count 173 10^3/cmm (157-399); Red Blood Count 3.10 10^6/uL (3.85-5.65); White Blood Count 5.22 10^3/uL (3.29-11.43)
[2025-06-26 04:41] LABS: Partial Thromboplastin Time 70.2 SECONDS (23.9-36.7)
[2025-06-26 04:42] LABS: Anion Gap 11.2 (5-19); Blood Urea Nitrogen 18 mg/dL (8-23); Calcium 10.1 mg/dL (8.5-10.5); Carbon Dioxide 25 mmol/L (22-29); Chloride 111 mmol/L (98-107); Creatinine Clr Calc Pharmacy 55.2347; Glucose 87 mg/dL (65-115); Osmolality Calculated 297 mOsm/kg (285-295); Potassium 4.2 mmol/L (3.5-5.1); Sodium 143 mmol/L (136-145)
[2025-06-26 05:07] LABS: INR 2.33 (0.8-1.2); Prothrombin Time 26.90 SECONDS (12.1-14.9)
--- NOTE | 2025-06-26 05:08 | ECG_ITS ---
[facility] Test Date: 2025-06-26 Pat Name: Odilia Ulloa Department: Room: 111 Gender: Female Logistics Analyst: : 1950 Requested By: Dustin Worrell Order Number: [id number] Supriya MD: Souleymane Wood M.D. Measurements Intervals [place] Rate: 94 P: 0 MI: 0 QRS: 51 QRSD: 126 T: 20 QT: 388 QTc: 487 Interpretive Statements ATRIAL FIBRILLATION POSSIBLE RIGHT VENTRICULAR CONDUCTION DELAY [RSR (QR) IN V1/V2] Compared to ECG 06/25/2025 13:53:09 No significant changes Electronically Signed On 06-26-2025 22:39:48 CDT by Souleymane Wood M.D. [email or web address]
--- NOTE | 2025-06-26 06:00 | ECG_ITS ---
[facility] Test Date: 2025-06-26 Pat Name: Odilia Ulloa Department: Room: 111 Gender: Female Assistant Portfolio Manager: : 1950 Requested By: Coty Sibley Order Number: [id number] Epps MD: Hema Siu M.D. Interpretive Statements procedure: A total of 0.4 mg of Lexiscan was infused over 20 seconds. The stress phase was continued for a total of 5 minutes. Sestamibi was injected 20 seconds after the Lexiscan infusion. Vital signs and ECG findings: The baseline EKG showed atrial fibrillation, incomplete right bundle branch block, nonspecific ST-T wave abnormality. There were no ST-T wave changes during stress. The baseline blood pressure was 138/88 with a heart rate of 97. At the end of stress the blood pressure was 135/81 with a heart rate of 80 bpm. In recovery, the blood pressure was 120/77 with a heart rate of 85 bpm. Patient reported chest pressure throughout the stress test. Conclusion: 1. Normal EKG response to Lexiscan infusion 2. Lexiscan induced chest pain. 3. Normal blood pressure and heart rate response. 4. Nuclear myocardial perfusion scan pending; see separate report. Electronically Signed On 06-26-2025 15:02:44 CDT by Hema Siu M.D. [id number]
[2025-06-26 06:04] LABS: Troponin(5th) Baseline 12 ng/L (0-10)
[2025-06-26 06:45] LABS: Troponin 5 2HR 12.19 ng/L (0-10); Troponin 5 2HR Delta 0.19 ABS# (0-10)
--- OUTSIDE RECORDS SUMMARY | 2025-06-26 06:45 | XMS_ITS | Encounter Summary ---
Author Organization [facility] Address [address] [place] [address] Care Team Providers Care Duplicating Machine Servicer Name Role Phone Rico Muñiz MD, Sharan Jaime Primary Care Provider Encounter Details Date Type Department Care Team (Latest Contact Info) Description 06/26/2003 Outpatient Historical [facility]-Faisal Lopez Michelle [address] [place] [address] Serge Arrington MD [address] [place] [address] HYPERTENSION NOS (Primary Dx); Routine medical exam Social History Tobacco Use Types Packs/Day Years Used Date Smoking Tobacco: Never Assessed Comments Unknown Sex and Gender Information Value Date Recorded Sex Assigned at Not on file Legal Sex Female 5:42 AM PARLIAMENTARY ARCHIVIST Gender Identity Not on file Sexual Orientation Not on file documented as of this encounter Plan of Treatment Not on file documented as of this encounter Visit Diagnoses Diagnosis Unspecified essential hypertension- Primary Routine medical exam Routine general medical examination at a health care facility documented in this encounter Care Teams Duplicating Machine Servicer Relationship Specialty Start Date End Date Sharan Gómez Jr., MD [address] [place] [phone] PCP - General 08/10/05 documented as of this encounter
--- OUTSIDE RECORDS SUMMARY | 2025-06-26 06:45 | XMS_ITS | Encounter Summary ---
Author Organization [facility] Address [address] Attn: [place] [address] Care Team Providers Care Bankruptcy Judge Name Role Phone Rico Muñiz MD, Sharan Jaime Primary Care Provider Encounter Details Date Type Department Care Team (Late st Contact Info) Description 07/23/2002 Outpatient Historical Екатерина Malone MD [address] [place] [address] Social History Tobacco Use Types Packs/Day Years Used Date Smoking Tobacco: Never Assessed Comments Unknown Sex and Gender Information Value Date Recorded Sex Assigned at Not on file Legal Sex Female 5:42 AM RECORD LIBRARIAN Gender Identity Not on file Sexual Orientation Not on file documented as of this encounter Plan of Treatment Not on file documented as of this encounter Visit Diagnoses Not on filedocumented in this encounter Care Teams Bankruptcy Judge Relationship Specialty Start Date End Date Sharan Gómez Jr., MD [address] [place] [phone] PCP - General 08/10/05 documented as of this encounter
--- OUTSIDE RECORDS SUMMARY | 2025-06-26 06:45 | XMS_ITS | Encounter Summary ---
Author Organization [facility] Address [address] [place] [address] Care Team Providers Care Film Washer Name Role Phone Rico Muñiz MD, Sharan Jaime Primary Care Provider Encounter Details Date Type Department Care Team (Latest Contact Info) Description 11/04/1998 Outpatient Historical [facility] Sharan Gómez Jr., MD [address] [place] [address] Acute upper respiratory infections of unspecified site (Primary Dx); Screening for other and unspecified respiratory condition; Other dyspnea and respiratory abnormality; USP (current) use of anticoagulants Social History Tobacco Use Types Packs/Day Years Used Date Smoking Tobacco: Never Assessed Comments Unknown Sex and Gender Information Value Date Recorded Sex Assigned at Not on file Legal 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 Gender Identity Not on file Sexual Orientation Not on file documented as of this encounter Plan of Treatment Not on file documented as of this encounter Visit Diagnoses Diagnosis Acute upper respiratory infections of unspecified site- Primary Screening for other and unspecified respiratory condition Other dyspnea and respiratory abnormality assistant terminal manager (current) use of anticoagulants Long-term (current) use of anticoagulants documented in this encounter Care Teams Film Washer Relationship Specialty Start Date End Date Sharan Gómez Jr., MD [address] [place] [address] PCP - General 08/10/05 documented as of this encounter
--- OUTSIDE RECORDS SUMMARY | 2025-06-26 06:45 | XMS_ITS | Encounter Summary ---
Author Organization [facility] Address [address] [place] [address] Care Team Providers Care Bundle Person Name Role Phone Rico Muñiz MD, Sharan Jaime Primary Care Provider Encounter Details Date Type Department Care Team (Latest Contact Info) Description 07/15/2002 Outpatient Historical [facility] Rafael Lopez Michelle [address] [place] [phone] Patrick Olsen MD NO ADDRESS ON FILE POSTMENOPAUSAL BLEEDING (Primary Dx); DYSPAREUNIA; SCREENING MAL NEOP-CERVIX Social History Tobacco Use Types Packs/Day Years Used Date Smoking Tobacco: Never Assessed Comments Unknown Sex and Gender Information Value Date Recorded Sex Assigned at Not on file Legal Sex Female 5: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
--- OUTSIDE RECORDS SUMMARY | 2025-06-26 06:45 | XMS_ITS | Encounter Summary ---
Author Organization [facility] Address [address] [place] [address] Care Team Providers Care Set Designer Name Role Phone Rico Muñiz MD, Sharan Jaime Primary Care Provider Encounter Details Date Type Department Care Team (Latest Contact Info) Description 01/14/1999 Outpatient Historical [facility] Sharan Gómez Jr., MD [address] [place] [address] Spasm of muscle (Primary Dx) Social History Tobacco Use Types Packs/Day Years Used Date Smoking Tobacco: Never Assessed Comments Unknown Sex and Gender Information Value Date Recorded Sex Assigned at Not on file Legal Sex Female 5:42 AM 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
--- OUTSIDE RECORDS SUMMARY | 2025-06-26 06:45 | XMS_ITS | Encounter Summary ---
Author Organization [facility] Address [address] [place] [address] Care Team Providers Care Division Controller Name Role Phone Rico Muñiz MD, Sharan Jaime Primary Care Provider Encounter Details Date Type Department Care Team (Latest Contact Info) Description 04/23/2002 Outpatient Historical [facility] Sharan Gómez Jr., MD [address] [place] [address] Pure hypercholesterolem (Primary Dx); HYPERCALCEMIA Social History Tobacco Use Types Packs/Day Years Used Date Smoking Tobacco: Never Assessed Comments Unknown Sex and Gender Information Value Date Recorded Sex Assigned at Not on file Legal Sex Female 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
--- OUTSIDE RECORDS SUMMARY | 2025-06-26 06:45 | XMS_ITS | Encounter Summary ---
Author Organization [facility] Address [address] Attn: Epic Prelude ADT [place] [address] Care Team Providers Care Disability Coordinator Name Role Phone Rico Muñiz MD, [...] on file Legal Sex Female 5:42 AM C T TECH Gender Identity Not on file Sexual Orientation Not on file documented as of this encounter Plan of Treatment Not on file documented as of this encounter Visit Diagnoses Not on filedocumented in this encounter Care Teams Disability Coordinator Relationship Specialty Start Date End Date Sharan Gómez Jr., MD [address] [place] [address] PCP - General 08/10/05 documented as of this encounter
--- OUTSIDE RECORDS SUMMARY | 2025-06-26 06:45 | XMS_ITS | Encounter Summary ---
Author Organization [facility] Address [address] [place] [address] Care Team Providers Care Stock Clerk Self Service Store Name Role Phone Rico Muñiz MD, Sharan Jaime Primary Care Provider Encounter Details Date Type Department Care Team (Latest Contact Info) Description 09/15/1998 Outpatient Historical [facility] Sharan Gómez Jr., MD [address] [place] [address] Unspecified essential hypertension (Primary Dx); Esophagitis, unspecified; rat exterminator (current) use of anticoagulants; Need vaccination-viral disease Social History Tobacco Use Types Packs/Day Years Used Date Smoking Tobacco: Never Assessed Comments Unknown Sex and Gender Information Value Date Recorded Sex Assigned at Not on file Legal Sex Female 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 Gender Identity Not on file Sexual Orientation Not on file documented as of this encounter Plan of Treatment Not on file documented as of this encounter Visit Diagnoses Diagnosis Unspecified essential hypertension- Primary Esophagitis, unspecified rat exterminator (current) use of anticoagulants Long-term (current) use of anticoagulants Need vaccination-viral disease Need for prophylactic vaccination and inoculation against other viral diseases documented in this encounter Care Teams Stock Clerk Self Service Store Relationship Specialty Start Date End Date Sharan Gómez Jr., MD [address] [place] [phone] PCP - General 08/10/05 documented as of this encounter
--- OUTSIDE RECORDS SUMMARY | 2025-06-26 06:45 | XMS_ITS | Encounter Summary ---
Author Organization [facility] Address [address] [place] [address] Care Team Providers Care Produce Associate Name Role Phone Rico Muñiz MD, Sharan Jaime Primary Care Provider Encounter Details Date Type Department Care Team (Latest Contact Info) Description 02/25/1999 Outpatient Historical [facility] Sharan Gómez Jr., MD [address] [place] [address] Dietary surveil/camp counselor (Primary Dx) Social History Tobacco Use Types Packs/Day Years Used Date Smoking Tobacco: Never Assessed Comments Unknown Sex and Gender Information Value Date Recorded Sex Assigned at Not on file Legal Sex Female 5:42 AM ADMINISTRATOR OF HOME HEALTH Gender Identity Not on file Sexual Orientation Not on file documented as of this encounter Plan of Treatment Not on file documented as of this encounter Visit Diagnoses Diagnosis Dietary surveil/camp counselor- Primary Dietary surveillance and counseling documented in this encounter Care Teams Produce Associate Relationship Specialty Start Date End Date Sharan Gómez Jr., MD [address] [place] [address] PCP - General 08/10/05 documented as of this encounter
--- OUTSIDE RECORDS SUMMARY | 2025-06-26 06:45 | XMS_ITS | Encounter Summary ---
Author Organization [facility] Address [address] [place] [address] Care Team Providers Care Hat Lining Blocker Name Role Phone Rico Muñiz MD, Sharan Jaime Primary Care Provider Encounter Details Date Type Department Care Team (Latest Contact Info) Description 06/26/2003 Outpatient Historical [facility] Int [facility] John [address] [place] [address] Serge Arrington MD [address] [place] [address] Mitral valve disorder (Primary Dx); HYPERTENSION NOS; HYPERLIPIDEMIA NEC/NOS; VACCINE FOR STREP PNEUMONIAE Social History Tobacco Use Types Packs/Day Years Used Date Smoking Tobacco: Never Assessed Comments Unknown Sex and Gender Information Value Date Recorded Sex Assigned at Not on file Legal Sex Female 5:42 AM ADOPTION SERVICES MANAGER Gender Identity Not on file Sexual [...] (pneumococcus) documented in this encounter Care Teams Hat Lining Blocker Relationship Specialty Start Date End Date Sharan Gómez Jr., MD [address] [place] [address] PCP - General 08/10/05 documented as of this encounter
--- OUTSIDE RECORDS SUMMARY | 2025-06-26 06:45 | XMS_ITS | Encounter Summary ---
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 Social History Tobacco Use Types Packs/Day Years Used Date Smoking Tobacco: Never Assessed Comments Unknown Sex and Gender Information Value Date Recorded Sex Assigned at Not on file Legal Sex Female 5:42 AM REVERSE ENGINEER Gender Identity Not on file Sexual Orientation Not on file documented as of this encounter Plan of Treatment Not on file documented as of this encounter Visit Diagnoses Diagnosis Acute upper respiratory infections of unspecified site- Primary 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
--- OUTSIDE RECORDS SUMMARY | 2025-06-26 06:45 | XMS_ITS | Encounter Summary ---
Author Organization [facility] Address [address] [place] [address] Care Team Providers Care Swine Extension Field Specialist Name Role Phone Rico Muñiz MD, Sharan Jaime Primary Care Provider Encounter Details Date Type Department Care Team (Latest Contact Info) Description 10/27/1998 Outpatient Historical [facility] Sharan Gómez Jr., MD [address] [place] [address] Unspecified essential hypertension (Primary Dx); Chest pain, unspecified; Pneumonia, organism unspecified(486) Social History Tobacco Use Types Packs/Day Years Used Date Smoking Tobacco: Never Assessed Comments Unknown Sex and Gender Information Value Date Recorded Sex Assigned at Not on file Legal Sex Female 5:42 AM FLOUR WORKER Gender Identity Not on file Sexual Orientation Not on file documented as of this encounter Plan of Treatment Not on file documented as of this encounter Visit Diagnoses Diagnosis Unspecified essential hypertension- Primary Chest pain, unspecified Pneumonia, organism unspecified(486) Pneumonia, organism unspecified documented in this encounter Care Teams Swine Extension Field Specialist Relationship Specialty Start Date End Date Sharan Gómez Jr., MD [address] [place] [address] PCP - General 08/10/05 documented as of this encounter
--- OUTSIDE RECORDS SUMMARY | 2025-06-26 06:45 | XMS_ITS | Encounter Summary ---
Author Organization [facility] Address [address] [place] [address] Care Team Providers Care Tile Trimmer Name Role Phone Rico Muñiz MD, Sharan Jaime Primary Care Provider Encounter Details Date Type Department Care Team (Latest Contact Info) Description 08/06/2006 Outpatient Historical [facility] Int Luis AFaisal Lopez [address] [place] [address] Serge Arrington MD [address] [place] [address] Mitral Valve Disorder (Primary Dx); Other and Unspecified Hyperlipidemia; Screening for Malignant Neoplasm of the Cervix Social History Tobacco Use Types Packs/Day Years Used Date Smoking Tobacco: Never Assessed Comments Unknown Sex and Gender Information Value Date Recorded Sex Assigned at Not on file Legal Sex Female 5:42 AM ROLL HAULER Gender Identity Not on file Sexual Orientation Not on file documented as of this encounter Plan of Treatment Not on file documented as of this encounter Visit Diagnoses Diagnosis Mitral valve disorder- Primary Mitral valve disorders Other and unspecified hyperlipidemia Screening for malignant neoplasm of the cervix documented in this encounter Care Teams Tile Trimmer Relationship Specialty Start Date End Date Sharan Gómez Jr., MD [address] [place] [phone] PCP - General 08/10/05 documented as of this encounter
--- OUTSIDE RECORDS SUMMARY | 2025-06-26 06:45 | XMS_ITS | Encounter Summary ---
Author Organization [facility] Address [address] [place] [address] Care Team Providers Care Radiagraph Operator Name Role Phone Rico Muñiz MD, Sharan Jaime Primary Care Provider Encounter Details Date Type Department Care Team (Latest Contact Info) Description 02/04/2007 Outpatient Historical [facility] Int Luis AFaisal Lopez [address] [place] [address] Serge Arrington MD [address] [place] [address] Unspecified Essential Hypertension (Primary Dx); Mitral Valve Disorder; Other and Unspecified Hyperlipidemia Social History Tobacco Use Types Packs/Day Years Used Date Smoking Tobacco: Never Assessed Comments Unknown Sex and Gender Information Value Date Recorded Sex Assigned at Not on file Legal Sex Female 5:42 AM GLOVE EXAMINER Gender Identity Not on file Sexual Orientation Not on file documented as of this encounter Plan of Treatment Not on file documented as of this encounter Visit Diagnoses Diagnosis Unspecified essential hypertension- Primary Mitral valve disorder Mitral valve disorders Other and unspecified hyperlipidemia documented in this encounter Care Teams Radiagraph Operator Relationship Specialty Start Date End Date Sharan Gómez Jr., MD [address] [place] [address] PCP - General 08/10/05 documented as of this encounter
--- OUTSIDE RECORDS SUMMARY | 2025-06-26 06:45 | XMS_ITS | Encounter Summary ---
Author Organization [facility] Address [address] [place] [address] Care Team Providers Care Voice Pathologist Name Role Phone Rico Muñiz MD, Sharan Jaime Primary Care Provider Encounter Details Date Type Department Care Team (Latest Contact Info) Description 07/06/2003 Outpatient Historical [facility] 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 (Primary Dx) Social History Tobacco Use Types Packs/Day Years Used Date Smoking Tobacco: Never Assessed Comments Unknown Sex and Gender Information Value Date Recorded Sex Assigned at Not on file Legal Sex Female 5:42 AM COMMUTATOR REPAIRER Gender Identity Not on file Sexual Orientation Not on file documented as of this encounter Plan of Treatment Not on file documented as of this encounter Visit Diagnoses Diagnosis Encounter for long-term (current) use of other medications- Primary documented in this encounter Care Teams Voice Pathologist Relationship Specialty Start Date End Date Sharan Gómez Jr., MD [address] [place] [address] PCP - General 08/10/05 documented as of this encounter
--- OUTSIDE RECORDS SUMMARY | 2025-06-26 06:45 | XMS_ITS | Encounter Summary ---
Author Organization [facility] Address [address] [place] [address] Care Team Providers Care Economic Development Specialist Name Role Phone Rico Muñiz MD, Sharan Jaime Primary Care Provider Encounter Details Date Type Department Care Team (Late st Contact Info) Description 10/14/2020 Lab Requisition [facility] Services [address] [place] [address] Paulina Peterson MD [address] [place] [address] Social History Tobacco Use Types Packs/Day Years Used Date Smoking Tobacco: Never Assessed Comments Unknown Sex and Gender Information Value Date Recorded Sex Assigned at Not on file Legal Sex Female 5:42 AM BARGE LOADER Gender Identity Not on file Sexual Orientation Not on file documented as of this encounter Plan of Treatment Not on file documented as of this encounter Procedures Procedure Name Priority Date/Time Associated Diagnosis Comments PROTIME-INR Routine 10/14/2020 6:16 AM BARGE LOADER documented in this encounter Results * (ABNORMAL) PROTIME-INR (10/14/2020 6:16 AM BARGE LOADER) PROTIME 43.3(H) 11.9 - 15.5 Seconds 10/14/2020 4:10 PM BARGE LOADER [facility] INR 4.4(H) 0.8 - 1.2 10/14/2020 4:10 PM BARGE LOADER [facility] Blood Collection / Unknown 10/14/2020 6:16 AM BARGE LOADER 10/14/2020 3:45 PM BARGE LOADER Narrative [facility] - 10/14/2020 4:10 PM BARGE LOADER Expected Values for INR: DVT/PE Goal INR 2.5; range 2.0 - 3.0 Valve Replacement Tissue Goal INR 2.5; range 2.0 - 3.0 Valve Replacement Mechanical Goal INR 3.0; range 2.5 - 3.5 POST-SC Goal INR 2.5; range 2.0 - 3.0 or Goal INR 3.0; range 2.5 - 3.5 Atrial Fibrillation Goal INR 2.5; range 2.0 - 3.0 Ischemic Stroke Goal INR 2.5; range 2.0 - 3.0 For additional information see Guidelines for Anticoagulation available from the pharmacy [facility] Paulina Peterson MD HEMATOLOGY ORDERABLES [facility] smart Result [facility] [address] [place] [address] documented in this encounter Visit Diagnoses Not on filedocumented in this encounter Care Teams Economic Development Specialist Relationship Specialty Start Date End Date Sharan Gómez Jr., MD [address] [place] [address] PCP - General 08/10/05 documented as of this encounter
--- OUTSIDE RECORDS SUMMARY | 2025-06-26 06:45 | XMS_ITS | Encounter Summary ---
Author Organization [facility] Address [address] [place] [address] Care Team Providers Care Biology Intern Name Role Phone Rico Muñiz MD, Sharan Jaime Primary Care Provider Encounter Details Date Type Department Care Team (Latest Contact Info) Description 11/05/2003 Outpatient Historical [facility] [address] [place] [phone] Екатерина Malone MD [address] [place] [address] HYPERLIPIDEMIA NEC/NOS (Primary Dx) Social History Tobacco Use Types Packs/Day Years Used Date Smoking Tobacco: Never Assessed Comments Unknown Sex and Gender Information Value Date Recorded Sex Assigned at Not on file Legal Sex Female 5:42 AM SHOWCASE TRIMMER Gender Identity Not on file Sexual Orientation Not on file documented as of this encounter Plan of Treatment Not on file documented as of this encounter Visit Diagnoses Diagnosis Other and unspecified hyperlipidemia- Primary documented in this encounter Care Teams Biology Intern Relationship Specialty Start Date End Date Sharan Gómez Jr., MD [address] [place] [address] PCP - General 08/10/05 documented as of this encounter
--- OUTSIDE RECORDS SUMMARY | 2025-06-26 06:45 | XMS_ITS | Encounter Summary ---
Author Organization [facility] Address [address] [place] [address] Care Team Providers Care Assembly Machine Offbearer Name Role Phone Rico Muñiz MD, Sharan Jaime Primary Care Provider Encounter Details Date Type Department Care Team (Latest Contact Info) Description 02/16/1999 Outpatient Historical [facility] Sharan Gómez Jr., MD [address] [place] [address] Unspecified essential hypertension (Primary Dx); alf (current) use of anticoagulants Social History Tobacco Use Types Packs/Day Years Used Date Smoking Tobacco: Never Assessed Comments Unknown Sex and Gender Information Value Date Recorded Sex Assigned at Not on file Legal Sex Female 5:42 AM GLASS PRODUCTS INSPECTOR Gender Identity Not on file Sexual Orientation Not on file documented as of this encounter Plan of Treatment Not on file documented as of this encounter Visit Diagnoses Diagnosis Unspecified essential hypertension- Primary alf (current) use of anticoagulants Long-term (current) use of anticoagulants documented in this encounter Care Teams Assembly Machine Offbearer Relationship Specialty Start Date End Date Sharan Gómez Jr., MD [address] [place] [address] PCP - General 08/10/05 documented as of this encounter
--- OUTSIDE RECORDS SUMMARY | 2025-06-26 06:45 | XMS_ITS | Encounter Summary ---
Author Organization [facility] Address [address] [place] [address] Care Team Providers Care Surgical Appliances Salesperson Name Role Phone Rico Muñiz MD, Sharan Jaime Primary Care Provider Encounter Details Date Type Department Care Team (Latest Contact Info) Description 11/05/2006 Outpatient Historical [facility] Int Luis AFaisal Lopze [address] [place] [address] Serge Arrington MD [address] [place] [address] Mitral Valve Disorder (Primary Dx); Unspecified Essential Hypertension; Other and Unspecified Hyperlipidemia Social History Tobacco Use Types Packs/Day Years Used Date Smoking Tobacco: Never Assessed Comments Unknown Sex and Gender Information Value Date Recorded Sex Assigned at Not on file Legal Sex Female 5:42 AM CRUTCHING CONTRACTOR Gender Identity Not on file Sexual Orientation Not on file documented as of this encounter Plan of Treatment Not on file documented as of this encounter Visit Diagnoses Diagnosis Mitral valve disorder- Primary Mitral valve disorders Unspecified essential hypertension Other and unspecified hyperlipidemia documented in this encounter Care Teams Surgical Appliances Salesperson Relationship Specialty Start Date End Date Sharan Gómez Jr., MD [address] [place] [address] PCP - General 08/10/05 documented as of this encounter
--- OUTSIDE RECORDS SUMMARY | 2025-06-26 06:45 | XMS_ITS | Encounter Summary ---
Author Organization [facility] Address [address] [place] [address] Care Team Providers Care Shoe Lacer Name Role Phone Rico Muñiz MD, Sharan Jaime Primary Care Provider Encounter Details Date Type Department Care Team (Latest Contact Info) Description 03/09/2003 Outpatient Historical [facility] 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
--- OUTSIDE RECORDS SUMMARY | 2025-06-26 06:45 | XMS_ITS | Encounter Summary ---
Author Organization [facility] Address [address] [facility] Attn: [place] [address] Care Team Providers Care Assembler Surgical Garment Name Role Phone Rico Muñiz MD, Sharan Jaime Primary Care Provider Encounter Details Date Type Department Care Team (Late st Contact Info) Description 04/23/2002 Outpatient Historical Sharan Gómez Jr., MD [address] [place] [address] Social History Tobacco Use Types Packs/Day Years Used Date Smoking Tobacco: Never Assessed Comments Unknown Sex and Gender Information Value Date Recorded Sex Assigned at Not on file Legal Sex Female 5:42 AM VIDEO PLAYER MECHANIC Gender Identity Not on file Sexual Orientation Not on file documented as of this encounter Plan of Treatment Not on file documented as of this encounter Visit Diagnoses Not on filedocumented in this encounter Care Teams Assembler Surgical Garment Relationship Specialty Start Date End Date Sharan Gómez Jr., MD [address] [place] [address] PCP - General 08/10/05 documented as of this encounter
--- OUTSIDE RECORDS SUMMARY | 2025-06-26 06:45 | XMS_ITS | Encounter Summary ---
Author Organization [facility] Address [address] [place] [address] Care Team Providers Care Speech Language Pathology Assistant Name Role Phone Rico Muñiz MD, Sharan Jaime Primary Care Provider Encounter Details Date Type Department Care Team (Latest Contact Info) Description 08/06/2006 Outpatient Historical [facility] Int Luis AFaisal Lopez [address] [place] [address] Serge Arrington MD [address] [place] [address] Routine Gynecological Examination (Primary Dx) Social History Tobacco Use Types Packs/Day Years Used Date Smoking Tobacco: Never Assessed Comments Unknown Sex and Gender Information Value Date Recorded Sex Assigned at Not on file Legal Sex Female 5:42 AM CHIEF PROCUREMENT OFFICER Gender Identity Not on file Sexual Orientation Not on file documented as of this encounter Plan of Treatment Not on file documented as of this encounter Visit Diagnoses Diagnosis Routine gynecological examination- Primary documented in this encounter Care Teams Speech Language Pathology Assistant Relationship Specialty Start Date End Date Sharan Gómez Jr., MD [address] [place] [address] PCP - General 08/10/05 documented as of this encounter
--- OUTSIDE RECORDS SUMMARY | 2025-06-26 06:45 | XMS_ITS | Encounter Summary ---
Author Organization [facility] Address [address] [facility] Attn: [place] [address] Care Team Providers Care Driver Helper Name Role Phone Rico Muñiz MD, Sharan Jaime Primary Care Provider Encounter Details Date Type Department Care Team (Late st Contact Info) Description 07/03/2002 Outpatient Historical Екатерина Malone MD [address] [place] [address] Social History Tobacco Use Types Packs/Day Years Used Date Smoking Tobacco: Never Assessed Comments Unknown Sex and Gender Information Value Date Recorded Sex Assigned at Not on file Legal Sex Female 5:42 AM HOSPITAL ADMISSIONS OFFICER Gender Identity Not on file Sexual Orientation Not on file documented as of this encounter Plan of Treatment Not on file documented as of this encounter Visit Diagnoses Not on filedocumented in this encounter Care Teams Driver Helper Relationship Specialty Start Date End Date Sharan Gómez Jr., MD [address] [place] [address] PCP - General 08/10/05 documented as of this encounter
--- OUTSIDE RECORDS SUMMARY | 2025-06-26 06:45 | XMS_ITS | Encounter Summary ---
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 Social History Tobacco Use Types Packs/Day Years Used Date Smoking Tobacco: Never Assessed Comments Unknown Sex and Gender Information Value Date Recorded Sex Assigned at Not on file Legal Sex Female 5:42 AM COLLISION TECHNICIAN Gender Identity Not on file Sexual Orientation Not on file documented as of this encounter Plan of Treatment Not on file documented as of this encounter Visit Diagnoses Diagnosis Unspecified essential hypertension- Primary Hypopotassemia custodial (current) use of anticoagulants Long-term (current) use of anticoagulants documented in this encounter Care Teams Nickel Plant Operator Relationship Specialty Start Date End Date Sharan Gómez Jr., MD [address] [place] [address] PCP - General 08/10/05 documented as of this encounter
--- OUTSIDE RECORDS SUMMARY | 2025-06-26 06:45 | XMS_ITS | Encounter Summary ---
Author Organization [facility] Address [address] [place] [address] Care Team Providers Care Livestock Inspector Name Role Phone Rico Muñiz MD, Sharan Jaime Primary Care Provider Encounter Details Date Type Department Care Team (Latest Contact Info) Description 06/29/2004 Outpatient Historical [facility] Int Luis AFaisal Lopez [address] [place] [address] Serge Arrington MD [address] [place] [address] Mitral valve disorder (Primary Dx); HYPERTENSION NOS; HYPERLIPIDEMIA NEC/NOS; OSTEOPOROSIS NOS Social History Tobacco Use Types Packs/Day Years Used Date Smoking Tobacco: Never Assessed Comments Unknown Sex and Gender Information Value Date Recorded Sex Assigned at Not on file Legal Sex Female 5:42 AM PUTTY AND PATCH WORKER Gender Identity Not on file Sexual Orientation Not on file documented as of this encounter Plan of Treatment Not on file documented as of this encounter Visit Diagnoses Diagnosis Mitral valve disorder- Primary Mitral valve disorders Unspecified essential hypertension Other and unspecified hyperlipidemia Osteoporosis, unspecified documented in this encounter Care Teams Livestock Inspector Relationship Specialty Start Date End Date Sharan Gómez Jr., MD [address] [place] [address] PCP - General 08/10/05 documented as of this encounter
--- OUTSIDE RECORDS SUMMARY | 2025-06-26 06:45 | XMS_ITS | Encounter Summary ---
Author Organization [facility] Address [address] [place] [address] Care Team Providers Care Client Success Director Name Role Phone Rico Muñiz MD, Sharan Jaime Primary Care Provider Encounter Details Date Type Department Care Team (Latest Contact Info) Description 06/24/2002 Outpatient Historical [facility] John [address] [place] [address] Serge Arrington MD [address] [place] [address] Mitral valve disorder (Primary Dx); CORONARY ATHEROSCLER UNSPEC VESSEL; HYPERTENSION NOS; HYPERLIPIDEMIA NEC/NOS Social History Tobacco Use Types Packs/Day Years Used Date Smoking Tobacco: Never Assessed Comments Unknown Sex and Gender Information Value Date Recorded Sex Assigned at Not on file Legal Sex Female 5:42 AM COMPLETION SUPERVISOR Gender Identity Not on file Sexual Orientation Not on file documented as of this encounter Plan of Treatment Not on file documented as of this encounter Visit Diagnoses Diagnosis Mitral valve disorder- Primary Mitral valve disorders Coronary atherosclerosis of unspecified type of vessel, pen[place] or graft Unspecified essential hypertension Other and unspecified hyperlipidemia documented in this encounter Care Teams Client Success Director Relationship Specialty Start Date End Date Sharan Gómez Jr., MD [address] [place] [address] PCP - General 08/10/05 documented as of this encounter
--- OUTSIDE RECORDS SUMMARY | 2025-06-26 06:46 | XMS_ITS | Encounter Summary ---
Author Organization [facility] Address [address] [place] [address] Care Team Providers Care Carpet Cleaning Technician Name Role Phone Rico Muñiz MD, Sharan Jaime Primary Care Provider Encounter Details Date Type Department Care Team (Latest Contact Info) Description 12/21/2000 Outpatient Historical [facility] Sharan Gómez Jr., MD [address] [place] [address] Pure hypercholesterolem (Primary Dx); Other and unspecified hyperlipidemia; Esophageal reflux; [facility] (current) use of anticoagulants Social History Tobacco Use Types Packs/Day Years Used Date Smoking Tobacco: Never Assessed Comments Unknown Sex and Gender Information Value Date Recorded Sex Assigned at Not on file Legal Sex Female 5:42 AM AADC PLANS STAFF OFFICER Gender Identity Not on file Sexual Orientation Not on file documented as of this encounter Plan of Treatment Not on file documented as of this encounter Visit Diagnoses Diagnosis Pure hypercholesterolem- Primary Pure hypercholesterolemia Other and unspecified hyperlipidemia Esophageal reflux [facility] (current) use of anticoagulants Long-term (current) use of anticoagulants documented in this encounter Care Teams Carpet Cleaning Technician Relationship Specialty Start Date End Date Sharan Gómez Jr., MD [address] [place] [phone] PCP - General 08/10/05 documented as of this encounter
--- OUTSIDE RECORDS SUMMARY | 2025-06-26 06:46 | XMS_ITS | Encounter Summary ---
Author Organization [facility] Address [address] [place] [address] Care Team Providers Care Sow Farm Barn Technician Name Role Phone Rico Muñiz MD, Sharan Jaime Primary Care Provider Encounter Details Date Type Department Care Team (Latest Contact Info) Description 06/21/2000 Outpatient Historical [facility] Int Luis AFaisal Lopez Michelle-[address] [place] [address] Serge Arrington MD [address] [place] [address] Mitral valve disorder (Primary Dx); Unspecified essential hypertension; Unspecified gastritis and gastroduodenitis without mention of hemorrhage Social History Tobacco Use Types Packs/Day Years Used Date Smoking Tobacco: Never Assessed Comments Unknown Sex and Gender Information Value Date Recorded Sex Assigned at Not on file Legal Sex Female 5:42 AM TESTER REGULATOR Gender Identity Not on file Sexual Orientation Not on file documented as of this encounter Plan of Treatment Not on file documented as of this encounter Visit Diagnoses Diagnosis Mitral valve disorder- Primary Mitral valve disorders Unspecified essential hypertension Unspecified gastritis and gastroduodenitis without mention of hemorrhage documented in this encounter Care Teams Sow Farm Barn Technician Relationship Specialty Start Date End Date Sharan Gómez Jr., MD [address] [place] [address] PCP - General 08/10/05 documented as of this encounter
--- OUTSIDE RECORDS SUMMARY | 2025-06-26 06:46 | XMS_ITS | Encounter Summary ---
Author Organization [facility] Address [address] [place] [address] Care Team Providers Care Rn Oncology Research Name Role Phone Rico Muñiz MD, Sharan Jaime Primary Care Provider Encounter Details Date Type Department Care Team (Latest Contact Info) Description 05/18/1999 Outpatient Historical [facility] Sharan Gómez Jr., MD [address] [place] [address] Osteoarthrosis, unspecified whether generalized or localized, unspecified site (Primary Dx); [facility] (current) use of anticoagulants; Heart valve replaced by other means Social History Tobacco Use Types Packs/Day Years Used Date Smoking Tobacco: Never Assessed Comments Unknown Sex and Gender Information Value Date Recorded Sex Assigned at Not on file Legal Sex Female 5:42 AM INTERNAL MEDICINE HOSPITALIST Gender Identity Not on file Sexual Orientation Not on file documented as of this encounter Plan of Treatment Not on file documented as of this encounter Visit Diagnoses Diagnosis Osteoarthrosis, unspecified whether generalized or localized, unspecified site- Primary 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
--- OUTSIDE RECORDS SUMMARY | 2025-06-26 06:46 | XMS_ITS | Encounter Summary ---
Author Organization [facility] Address [address] [place] [address] Care Team Providers Care Cryptologic Supervisor Name Role Phone Rico Muñiz MD, Sharan Jaime Primary Care Provider Encounter Details Date Type Department Care Team (Latest Contact Info) Description 07/04/2005 Outpatient Historical [facility] John [address] [place] [phone] Serge Arrington MD [address] [place] [address] ROUTINE URBAN DESIGNER EXAMINATION (Primary Dx) Social History Tobacco Use Types Packs/Day Years Used Date Smoking Tobacco: Never Assessed Comments Unknown Sex and Gender Information Value Date Recorded Sex Assigned at Not on file Legal Sex Female 5:42 AM DIRECTOR OPERATIONS Gender Identity Not on file Sexual Orientation Not on file documented as of this encounter Plan of Treatment Not on file documented as of this encounter Visit Diagnoses Diagnosis Routine gynecological examination- Primary documented in this encounter Care Teams Cryptologic Supervisor Relationship Specialty Start Date End Date Sharan Gómez Jr., MD [address] [place] [address] PCP - General 08/10/05 documented as of this encounter
--- OUTSIDE RECORDS SUMMARY | 2025-06-26 06:46 | XMS_ITS | Encounter Summary ---
Author Organization [facility] Address [address] [place] [address] Care Team Providers Care Applique Sewer Name Role Phone Rico Muñiz MD, Sharan Jaime Primary Care Provider Encounter Details Date Type Department Care Team (Late st Contact Info) Description 10/15/2020 Lab Requisition [facility] Services [address] [place] [address] Paulina Peterson MD [address] [place] [address] Social History Tobacco Use Types Packs/Day Years Used Date Smoking Tobacco: Never Assessed Comments Unknown Sex and Gender Information Value Date Recorded Sex Assigned at Not on file Legal Sex Female 5:42 AM FINANCE CONTROLLER Gender Identity Not on file Sexual Orientation Not on file documented as of this encounter Plan of Treatment Not on file documented as of this encounter Procedures Procedure Name Priority Date/Time Associated Diagnosis Comments PROTIME-INR Routine 10/15/2020 4:40 AM FINANCE CONTROLLER documented in this encounter Results * (ABNORMAL) PROTIME-INR (10/15/2020 4:40 AM FINANCE CONTROLLER) PROTIME 46.6(H) 11.9 - 15.5 Seconds 10/15/2020 4:26 PM FINANCE CONTROLLER [facility] INR 4.9(H) 0.8 - 1.2 10/15/2020 4:26 PM FINANCE CONTROLLER [facility] Blood Collection / Unknown 10/15/2020 4:40 AM FINANCE CONTROLLER 10/15/2020 4:01 PM FINANCE CONTROLLER Narrative [facility] - 10/15/2020 4:26 PM FINANCE CONTROLLER Expected Values for INR: DVT/PE Goal INR [...] Peterson MD HEMATOLOGY ORDERABLES Maame smart Result [facility] [address] [place] [address] documented in this encounter Visit Diagnoses Not on filedocumented in this encounter Care Teams Applique Sewer Relationship Specialty Start Date End Date Sharan Gómez Jr., MD [address] [place] [phone] PCP - General 08/10/05 documented as of this encounter
--- OUTSIDE RECORDS SUMMARY | 2025-06-26 06:46 | XMS_ITS | Encounter Summary ---
Author Organization [facility] Address [address] Attn: [place] [address] Care Team Providers Care Weaving Supervisor Name Role Phone Rico Muñiz MD, Sharan Jaime Primary Care Provider Encounter Details Date Type Department Care Team (Late st Contact Info) Description 04/07/2002 Outpatient Historical Sharan Gómez Jr., MD [address] [place] [address] Social History Tobacco Use Types Packs/Day Years Used Date Smoking Tobacco: Never Assessed Comments Unknown Sex and Gender Information Value Date Recorded Sex Assigned at Not on file Legal Sex Female 5:42 AM MOTOR BOSS Gender Identity Not on file Sexual Orientation Not on file documented as of this encounter Plan of Treatment Not on file documented as of this encounter Visit Diagnoses Not on filedocumented in this encounter Care Teams Weaving Supervisor Relationship Specialty Start Date End Date Sharan Gómez Jr., MD [address] [place] [address] PCP - General 08/10/05 documented as of this encounter
--- OUTSIDE RECORDS SUMMARY | 2025-06-26 06:46 | XMS_ITS | Encounter Summary ---
Author Organization [facility] Address [address] [place] [address] Care Team Providers Care Laboratory Engineer Name Role Phone Rico Muñiz MD, Sharan Jaime Primary Care Provider Encounter Details Date Type Department Care Team (Latest Contact Info) Description 11/28/2001 Outpatient Historical [facility] Sharan Gómez Jr., MD [address] [place] [address] URIN TRACT INFECTION NOS (Primary Dx); [facility] ANTICOAG USE Social History Tobacco Use Types Packs/Day Years Used Date Smoking Tobacco: Never Assessed Comments Unknown Sex and Gender Information Value Date Recorded Sex Assigned at Not on file Legal Sex Female 5:42 AM EMPLOYMENT COORDINATOR Gender Identity Not on file Sexual Orientation Not on file documented as of this encounter Plan of Treatment Not on file documented as of this encounter Visit Diagnoses Diagnosis Urinary tract infection, site not specified- Primary terminal operations manager (current) use of anticoagulants Long-term (current) use of anticoagulants documented in this encounter Care Teams Laboratory Engineer Relationship Specialty Start Date End Date Sharan Gómez Jr., MD [address] [facility] [place] [address] PCP - General 08/10/05 documented as of this encounter
--- OUTSIDE RECORDS SUMMARY | 2025-06-26 06:46 | XMS_ITS | Encounter Summary ---
Author Organization [facility] Address [address] [facility] [facility] Attn: [place] [address] Care Team Providers Care Rod Buster Helper Name Role Phone Rico Muñiz MD, Sharan Jaime Primary Care Provider Encounter Details Date Type Department Care Team (Late st Contact Info) Description 12/20/2001 Outpatient Historical Sharan Gómez Jr., MD [address] [place] [address] Social History Tobacco Use Types Packs/Day Years Used Date Smoking Tobacco: Never Assessed Comments Unknown Sex and Gender Information Value Date Recorded Sex Assigned at Not on file Legal Sex Female 5:42 AM HOSPITAL RECRUITER Gender Identity Not on file Sexual Orientation Not on file documented as of this encounter Plan of Treatment Not on file documented as of this encounter Visit Diagnoses Not on filedocumented in this encounter Care Teams Rod Buster Helper Relationship Specialty Start Date End Date Sharan Gómez Jr., MD [address] [place] [address] PCP - General 08/10/05 documented as of this encounter
--- OUTSIDE RECORDS SUMMARY | 2025-06-26 06:46 | XMS_ITS | Encounter Summary ---
Author Organization [facility] Address [address] [place] [address] Care Team Providers Care Visual And Stock Associate Name Role Phone Rico Muñiz MD, Sharan Jaime Primary Care Provider Encounter Details Date Type Department Care Team (Latest Contact Info) Description 08/05/2001 Outpatient Historical [facility] Sharan Gómez Jr., MD [address] [place] [address] Generalized anxiety disorder (Primary Dx); Hypopotassemia Social History Tobacco Use Types Packs/Day Years Used Date Smoking Tobacco: Never Assessed Comments Unknown Sex and Gender Information Value Date Recorded Sex Assigned at Not on file Legal Sex Female 5:42 AM HARNESS TIER Gender Identity Not on file Sexual Orientation Not on file documented as of this encounter Plan of Treatment Not on file documented as of this encounter Visit Diagnoses Diagnosis Generalized anxiety disorder- Primary Hypopotassemia documented in this encounter Care Teams Visual And Stock Associate Relationship Specialty Start Date End Date Sharan Gómez Jr., MD [address] [place] [address] PCP - General 08/10/05 documented as of this encounter
--- OUTSIDE RECORDS SUMMARY | 2025-06-26 06:46 | XMS_ITS | Encounter Summary ---
Author Organization [facility] Address [address] [place] [address] Care Team Providers Care Cosmetic Counselor Name Role Phone Rico Muñiz MD, Sharan Jaime Primary Care Provider Encounter Details Date Type Department Care Team (Latest Contact Info) Description 10/31/2001 Outpatient Historical [facility] Sharan Gómez Jr., MD [address] [place] [address] ATRIAL FIBRILLATION (CMS/HCC) (Primary Dx); AFTERCARE HALF-WAY ANTICOAG USE; HEART VALVE REPLAC NEC Social History Tobacco Use Types Packs/Day Years Used Date Smoking Tobacco: Never Assessed Comments Unknown Sex and Gender Information Value Date Recorded Sex Assigned at Not on file Legal Sex Female 5:42 AM STUDIO RECEPTIONIST Gender Identity Not on file Sexual Orientation Not on file documented as of this encounter Plan of Treatment Not on file documented as of this encounter Visit Diagnoses Diagnosis Atrial fibrillation (CMS/HCC)- Primary Atrial fibrillation prison (current) use of anticoagulants Long-term (current) use of anticoagulants Heart valve replaced by other means documented in this encounter Care Teams Cosmetic Counselor Relationship Specialty Start Date End Date Sharan Gómez Jr., MD [address] [place] [address] PCP - General 08/10/05 documented as of this encounter
--- OUTSIDE RECORDS SUMMARY | 2025-06-26 06:46 | XMS_ITS | Encounter Summary ---
Author Organization [facility] Address [address] [place] [address] Care Team Providers Care Ampoule Filler Name Role Phone Rico uMñiz MD, Sharan Jaime Primary Care Provider Encounter Details Date Type Department Care Team (Latest Contact Info) Description 06/28/2001 Outpatient Historical [facility] Sharan Gómez Jr., MD [address] [place] [address] Esophageal reflux (Primary Dx); Heart valve replaced by other means Social History Tobacco Use Types Packs/Day Years Used Date Smoking Tobacco: Never Assessed Comments Unknown Sex and Gender Information Value Date Recorded Sex Assigned at Not on file Legal Sex Female 5:42 AM CATEGORY DEVELOPMENT ANALYST Gender Identity Not on file Sexual Orientation Not on file documented as of this encounter Plan of Treatment Not on file documented as of this encounter Visit Diagnoses Diagnosis Esophageal reflux- Primary Heart valve replaced by other means documented in this encounter Care Teams Ampoule Filler Relationship Specialty Start Date End Date Sharan Gómez Jr., MD [address] [place] [address] PCP - General 08/10/05 documented as of this encounter
--- OUTSIDE RECORDS SUMMARY | 2025-06-26 06:46 | XMS_ITS | Encounter Summary ---
Author Organization [facility] Address [address] [place] [address] Care Team Providers Care Homicide Squad Lieutenant Name Role Phone Rico Muñiz MD, Sharan Jaime Primary Care Provider Encounter Details Date Type Department Care Team (Latest Contact Info) Description 06/28/2000 Outpatient Historical [facility] Sharan Gómez Jr., MD [address] [place] [address] Pure hypercholesterolem (Primary Dx); Hypopotassemia; Heart valve replaced by other means Social History Tobacco Use Types Packs/Day Years Used Date Smoking Tobacco: Never Assessed Comments Unknown Sex and Gender Information Value Date Recorded Sex Assigned at Not on file Legal Sex Female 5:42 AM SUPPORT COORDINATOR Gender Identity Not on file Sexual Orientation Not on file documented as of this encounter Plan of Treatment Not on file documented as of this encounter Visit Diagnoses Diagnosis Pure hypercholesterolem- Primary Pure hypercholesterolemia Hypopotassemia Heart valve replaced by other means documented in this encounter Care Teams Homicide Squad Lieutenant Relationship Specialty Start Date End Date Sharan Gómez Jr., MD [address] [place] [address] PCP - General 08/10/05 documented as of this encounter
--- OUTSIDE RECORDS SUMMARY | 2025-06-26 06:46 | XMS_ITS | Encounter Summary ---
Author Organization [facility] Address [address] [place] [address] Care Team Providers Care Cashier Checker Name Role Phone Rico Muñiz MD, Sharan Jaime Primary Care Provider Encounter Details Date Type Department Care Team (Latest Contact Info) Description 07/06/2006 Outpatient Historical [facility] John [facility] [address] [place] [address] Jennifer Cash MD NO ADDRESS ON FILE Unspecified Essential Hypertension (Primary Dx); Other and Unspecified Hyperlipidemia; Hypercalcemia; Routine Medical Exam Social History Tobacco Use Types Packs/Day Years Used Date Smoking Tobacco: Never Assessed Comments Unknown Sex and Gender Information Value Date Recorded Sex Assigned at Not on file Legal Sex Female 5:42 AM LUNCH COUNTER MANAGER Gender Identity Not on file Sexual Orientation Not on file documented as of this encounter Plan of Treatment Not on file documented as of this encounter Visit Diagnoses Diagnosis Unspecified essential hypertension- Primary Other and unspecified hyperlipidemia Hypercalcemia Routine medical exam Routine general medical examination at a health care facility documented in this encounter Care Teams Cashier Checker Relationship Specialty Start Date End Date Sharan Gómez Jr., MD [address] [place] [address] PCP - General 08/10/05 documented as of this encounter
--- OUTSIDE RECORDS SUMMARY | 2025-06-26 06:46 | XMS_ITS | Encounter Summary ---
Author Organization [facility] Address [address] [place] [address] Care Team Providers Care Vehicle Refinisher Name Role Phone Rico Muñiz MD, Sharan Jaime Primary Care Provider Encounter Details Date Type Department Care Team (Latest Contact Info) Description 02/03/2002 Outpatient Historical [facility] Sharan Gómez Jr., MD [address] [place] [address] HEART VALVE REPLAC NEC (Primary Dx); [facility] ANTICOAG USE Social History Tobacco Use Types Packs/Day Years Used Date Smoking Tobacco: Never Assessed Comments Unknown Sex and Gender Information Value Date Recorded Sex Assigned at Not on file Legal Sex Female 5:42 AM ROOFING APPLICATOR Gender Identity Not on file Sexual Orientation Not on file documented as of this encounter Plan of Treatment Not on file documented as of this encounter Visit Diagnoses Diagnosis Heart valve replaced by other means- Primary nursing home (current) use of anticoagulants Long-term (current) use of anticoagulants documented in this encounter Care Teams Vehicle Refinisher Relationship Specialty Start Date End Date Sharan Gómez Jr., MD [address] [place] [address] PCP - General 08/10/05 documented as of this encounter
--- OUTSIDE RECORDS SUMMARY | 2025-06-26 06:46 | XMS_ITS | Encounter Summary ---
Author Organization [facility] Address [address] [place] [address] Care Team Providers Care Dining Room Server Name Role Phone Rico Muñiz MD, Sharan Jaime Primary Care Provider Encounter Details Date Type Department Care Team (Latest Contact Info) Description 03/18/1999 Outpatient Historical [facility] Sharan Gómez Jr., MD [address] [place] [address] Endocarditis, valve unspecified, unspecified cause (Primary Dx); technician terminal and repeater (current) use of anticoagulants Social History Tobacco Use Types Packs/Day Years Used Date Smoking Tobacco: Never Assessed Comments Unknown Sex and Gender Information Value Date Recorded Sex Assigned at Not on file Legal Sex Female 5:42 AM RAILROAD FIRER/FIREMAN Gender Identity Not on file Sexual Orientation Not on file documented as of this encounter Plan of Treatment Not on file documented as of this encounter Visit Diagnoses Diagnosis Endocarditis, valve unspecified, unspecified cause- Primary technician terminal and repeater (current) use of anticoagulants Long-term (current) use of anticoagulants documented in this encounter Care Teams Dining Room Server Relationship Specialty Start Date End Date Sharan Gómez Jr., MD [address] [place] [address] PCP - General 08/10/05 documented as of this encounter
--- OUTSIDE RECORDS SUMMARY | 2025-06-26 06:46 | XMS_ITS | Encounter Summary ---
Author Organization [facility] Address [address] [place] [address] Care Team Providers Care Smt Machine Operator Name Role Phone Rico Muñiz MD, Sharan Jaime Primary Care Provider Encounter Details Date Type Department Care Team (Latest Contact Info) Description 01/25/2000 Outpatient Historical [facility] Sharan Gómez Jr., MD [address] [place] [address] Obesity, unspecified (Primary Dx); Heart valve replaced by other means; Unspecified essential hypertension; alf (current) use of anticoagulants Social History Tobacco Use Types Packs/Day Years Used Date Smoking Tobacco: Never Assessed Comments Unknown Sex and Gender Information Value Date Recorded Sex Assigned at Not on file Legal Sex Female 5:42 AM SECURITIES CONSULTANT Gender Identity Not on file Sexual Orientation Not on file documented as of this encounter Plan of Treatment Not on file documented as of this encounter Visit Diagnoses Diagnosis Obesity, unspecified- Primary Heart valve replaced by other means Unspecified essential hypertension alf (current) use of anticoagulants Long-term (current) use of anticoagulants documented in this encounter Care Teams Smt Machine Operator Relationship Specialty Start Date End Date Sharan Gómez Jr., MD [address] [place] [address] PCP - General 08/10/05 documented as of this encounter
--- OUTSIDE RECORDS SUMMARY | 2025-06-26 06:46 | XMS_ITS | Encounter Summary ---
Author Organization [facility] Address [address] [place] [address] Care Team Providers Care Mastic Man Name Role Phone Rico Muñiz MD, Sharan Jaime Primary Care Provider Encounter Details Date Type Department Care Team (Late st Contact Info) Description 07/02/2001 Outpatient Historical [facility] Serge Arrington MD [address] [facility] [address] [place] [address] Encounter for long-term (current) use of other medications (Primary Dx); Unspecified essential hypertension Social History Tobacco Use Types Packs/Day Years Used Date Smoking Tobacco: Never Assessed Comments Unknown Sex and Gender Information Value Date Recorded Sex Assigned at Not on file Legal Sex Female 5:42 AM PAYMENT ANALYST Gender Identity Not on file Sexual Orientation Not on file documented as of this encounter Plan of Treatment Not on file documented as of this encounter Visit Diagnoses Diagnosis Encounter for long-term (current) use of other medications- Primary Unspecified essential hypertension documented in this encounter Care Teams Mastic Man Relationship Specialty Start Date End Date Sharan Gómez Jr., MD [address] [place] [address] PCP - General 08/10/05 documented as of this encounter
--- OUTSIDE RECORDS SUMMARY | 2025-06-26 06:46 | XMS_ITS | Encounter Summary ---
Author Organization [facility] Address [address] [place] [address] Care Team Providers Care Specialist Physician Name Role Phone Rico Muñiz MD, Sharan Jaime Primary Care Provider Encounter Details Date Type Department Care Team (Latest Contact Info) Description 04/18/1999 Outpatient Historical [facility] Sharan Gómez Jr., MD [address] [place] [address] Headache(784.0) (Primary Dx); Unspecified essential hypertension; prison (current) use of anticoagulants Social History Tobacco Use Types Packs/Day Years Used Date Smoking Tobacco: Never Assessed Comments Unknown Sex and Gender Information Value Date Recorded Sex Assigned at Not on file Legal Sex Female 5:42 AM SPA SUPERVISOR Gender Identity Not on file Sexual Orientation Not on file documented as of this encounter Plan of Treatment Not on file documented as of this encounter Visit Diagnoses Diagnosis Headache(784.0)- Primary Headache Unspecified essential hypertension prison (current) use of anticoagulants Long-term (current) use of anticoagulants documented in this encounter Care Teams Specialist Physician Relationship Specialty Start Date End Date Sharan Gómez Jr., MD [address] [place] [address] PCP - General 08/10/05 documented as of this encounter
--- OUTSIDE RECORDS SUMMARY | 2025-06-26 06:46 | XMS_ITS | Clinical Summary ---
Author Organization [facility] Address [address] [place] [address] Phone Care Team Providers Care Concrete Rubber Name Role Phone Rico Muñiz MD, Sharan Jaime Primary Care Provider Immunizations Immunization Administration Dates Next Due (PNEUMOVAX 23)(50 YRS UP) PN EUMOCOCCAL POLYSACCHARIDE (PPV23) 0.5 ML, IM 06/26/2003 Social History Tobacco Use Types Packs/Day Years Used Date Smoking Tobacco: Never Assessed Comments Unknown Sex and Gender Information Value Date Recorded Sex Assigned at Not on file Legal Sex Female 5:42 AM TEST DEVELOPMENT ENGINEER Gender Identity Not on file Sexual [...] AND [place] Care Teams Concrete Rubber Relationship Specialty Start Date End Date Sharan Gómez Jr., MD [address] [place] [address] PCP - General 08/10/05
--- OUTSIDE RECORDS SUMMARY | 2025-06-26 06:46 | XMS_ITS | Encounter Summary ---
Author Organization [facility] Address [address] [place] [address] Care Team Providers Care Patient Relations Representative Name Role Phone Rico Muñiz MD, Sharan Jaime Primary Care Provider Encounter Details Date Type Department Care Team (Latest Contact Info) Description 02/15/2001 Outpatient Historical [facility] Sharan Gómez Jr., MD [address] [place] [address] Unspecified essential hypertension (Primary Dx); Heart valve replaced by other means Social History Tobacco Use Types Packs/Day Years Used Date Smoking Tobacco: Never Assessed Comments Unknown Sex and Gender Information Value Date Recorded Sex Assigned at Not on file Legal Sex Female 5:42 AM NEUROBIOLOGIST Gender Identity Not on file Sexual Orientation Not on file documented as of this encounter Plan of Treatment Not on file documented as of this encounter Visit Diagnoses Diagnosis Unspecified essential hypertension- Primary Heart valve replaced by other means documented in this encounter Care Teams Patient Relations Representative Relationship Specialty Start Date End Date Sharan Gómez Jr., MD [address] [place] [phone] PCP - General 08/10/05 documented as of this encounter
--- OUTSIDE RECORDS SUMMARY | 2025-06-26 06:46 | XMS_ITS | Encounter Summary ---
Author Organization [facility] Address [address] [place] [address] Care Team Providers Care Appliance Fixer Name Role Phone Rico Muñiz MD, Sharan Jaime Primary Care Provider Encounter Details Date Type Department Care Team (Late st Contact Info) Description 10/18/2020 Lab Requisition [facility] [address] [place] [address] Tabatha Lynn, [facility] [address] [place] [address] Social History Tobacco Use Types Packs/Day Years Used Date Smoking Tobacco: Never Assessed Comments Unknown Sex and Gender Information Value Date Recorded Sex Assigned at Not on file Legal Sex Female 5:42 AM CHEMISTRY LECTURER Gender Identity Not on file Sexual Orientation Not on file documented as of this encounter Plan of Treatment Not on file documented as of this encounter Procedures Procedure Name Priority Date/Time Associated Diagnosis Comments PROTIME-INR Routine 10/18/2020 6:34 AM CHEMISTRY LECTURER documented in this encounter Results * (ABNORMAL) PROTIME-INR (10/18/2020 6:34 AM CHEMISTRY LECTURER) PROTIME 34.1(H) 11.9 - 15.5 Seconds 10/18/2020 5:19 PM CHEMISTRY LECTURER [facility] INR 3.2(H) 0.8 - 1.2 10/18/2020 5:19 PM CHEMISTRY LECTURER [facility] Blood Collection / Unknown 10/18/2020 6:34 AM CHEMISTRY LECTURER 10/18/2020 4:57 PM CHEMISTRY LECTURER Narrative [facility] - 10/18/2020 5:19 PM CHEMISTRY LECTURER Expected Values for INR: DVT/PE Goal INR 2.5; range 2.0 - 3.0 Valve Replacement Tissue Goal INR 2.5; range 2.0 - 3.0 Valve Replacement Mechanical Goal INR 3.0; range 2.5 - 3.5 POST-ME Goal INR 2.5; range 2.0 - 3.0 or Goal INR 3.0; range 2.5 - 3.5 Atrial Fibrillation Goal INR 2.5; range 2.0 - 3.0 Ischemic Stroke Goal INR 2.5; range 2.0 - 3.0 For additional information see Guidelines for Anticoagulation available from the pharmacy Aspen Micthell, Pharm D. Tabatha Neff OILER HELPER HEMATOLOGY ORDERABLES Final Result [facility] [address] [place] [address] documented in this encounter Visit Diagnoses Not on filedocumented in this encounter Care Teams Appliance Fixer Relationship Specialty Start Date End Date Sharan Gómez Jr., MD [address] [place] [address] PCP - General 08/10/05 documented as of this encounter
--- OUTSIDE RECORDS SUMMARY | 2025-06-26 06:46 | XMS_ITS | Encounter Summary ---
Author Organization [facility] Address [address] [place] [address] Care Team Providers Care Optometric Tech Name Role Phone Rico Muñiz MD, Sharan Jaime Primary Care Provider Encounter Details Date Type Department Care Team (Latest Contact Info) Description 04/07/2002 Outpatient Historical [facility] Sharan Gómez Jr., MD [address] [place] [address] ENDOCARDITIS NOS (Primary Dx); DIABETES UNCOMPL ADULT-TYPE II (CMS/HCC); HYPERTENSION NOS; AFTERCARE PATIENT RELATIONS SPECIALIST ANTICOAG USE Social History Tobacco Use Types Packs/Day Years Used Date Smoking Tobacco: Never Assessed Comments Unknown Sex and Gender Information Value Date Recorded Sex Assigned at Not on file Legal Sex Female 5:42 AM GRAPHIC ART DESIGNER Gender Identity Not on file Sexual Orientation Not on file documented as of this encounter Plan of Treatment Not on file documented as of this encounter Visit Diagnoses Diagnosis Endocarditis, valve unspecified, unspecified cause- Primary Type II or unspecified type diabetes mellitus without mention of complication, not stated as uncontrolled Unspecified essential hypertension curriculum and instruction specialist (current) use of anticoagulants Long-term (current) use of anticoagulants documented in this encounter Care Teams Optometric Tech Relationship Specialty Start Date End Date Sharan Gómez Jr., MD [address] [place] [address] PCP - General 08/10/05 documented as of this encounter
--- OUTSIDE RECORDS SUMMARY | 2025-06-26 06:46 | XMS_ITS | Encounter Summary ---
Author Organization [facility] Address [address] [place] [address] Care Team Providers Care Compensation And Benefits Analyst Name Role Phone Rico Muñiz MD, Sharan Jaime Primary Care Provider Encounter Details Date Type Department Care Team (Latest Contact Info) Description 11/25/1999 Outpatient Historical [facility] Sharan Gómez Jr., MD [address] [place] [address] Epistaxis (Primary Dx); retirement (current) use of anticoagulants Social History Tobacco Use Types Packs/Day Years Used Date Smoking Tobacco: Never Assessed Comments Unknown Sex and Gender Information Value Date Recorded Sex Assigned at Not on file Legal Sex Female 5:42 AM KNIFE SETTER Gender Identity Not on file Sexual Orientation Not on file documented as of this encounter Plan of Treatment Not on file documented as of this encounter Visit Diagnoses Diagnosis Epistaxis- Primary retirement (current) use of anticoagulants Long-term (current) use of anticoagulants documented in this encounter Care Teams Compensation And Benefits Analyst Relationship Specialty Start Date End Date Sharan Gómez Jr., MD [address] [place] [address] PCP - General 08/10/05 documented as of this encounter
--- OUTSIDE RECORDS SUMMARY | 2025-06-26 06:46 | XMS_ITS | Encounter Summary ---
Author Organization [facility] Address [address] [place] [address] Care Team Providers Care Case Hardener Name Role Phone Rico Muñiz MD, Sharan Jaime Primary Care Provider Encounter Details Date Type Department Care Team (Latest Contact Info) Description 04/01/1999 Outpatient Historical [facility] Sharan Gómez Jr., MD [address] [place] [address] Type II or unspecified type diabetes mellitus without mention of complication, not stated as uncontrolled (Primary Dx); Dietary surveil/day camp counselor Social History Tobacco Use Types Packs/Day Years Used Date Smoking Tobacco: Never Assessed Comments Unknown Sex and Gender Information Value Date Recorded Sex Assigned at Not on file Legal Sex Female 5:42 AM HEAD WAITER/WAITRESS BANQUET Gender Identity Not on file Sexual Orientation Not on file documented as of this encounter Plan of Treatment Not on file documented as of this encounter Visit Diagnoses Diagnosis Type II or unspecified type diabetes mellitus without mention of complication, not stated as uncontrolled- Primary Dietary surveil/day camp counselor Dietary surveillance and counseling documented in this encounter Care Teams Case Hardener Relationship Specialty Start Date End Date Sharan Gómez Jr., MD [address] [place] [address] PCP - General 08/10/05 documented as of this encounter
--- OUTSIDE RECORDS SUMMARY | 2025-06-26 06:46 | XMS_ITS | Encounter Summary ---
Author Organization [facility] Address [address] [facility] Attn: [place] [address] Care Team Providers Care Primary Health Care Nurse Name Role Phone Rico Muñiz MD, Sharan Jaime Primary Care Provider Encounter Details Date Type Department Care Team (Late st Contact Info) Description 05/16/2001 Outpatient Historical Sharan Gómez Jr., MD [address] [place] [address] Social History Tobacco Use Types Packs/Day Years Used Date Smoking Tobacco: Never Assessed Comments Unknown Sex and Gender Information Value Date Recorded Sex Assigned at Not on file Legal Sex Female 5:42 AM FOOD AND NUTRITION PROFESSOR Gender Identity Not on file Sexual Orientation Not on file documented as of this encounter Plan of Treatment Not on file documented as of this encounter Visit Diagnoses Not on filedocumented in this encounter Care Teams Primary Health Care Nurse Relationship Specialty Start Date End Date Sharan Gómez Jr., MD [address] [place] [address] PCP - General 08/10/05 documented as of this encounter
--- OUTSIDE RECORDS SUMMARY | 2025-06-26 06:46 | XMS_ITS | Encounter Summary ---
Author Organization [facility] Address [address] [place] [address] Care Team Providers Care Erp Developer Name Role Phone Rico Muñiz MD, Sharan Jaime Primary Care Provider Encounter Details Date Type Department Care Team (Latest Contact Info) Description 07/18/1999 Outpatient Historical [facility] Sharan Gómez Jr., MD [address] [place] [address] Skin sensation disturb (Primary Dx); Headache(784.0); halfway (current) use of anticoagulants Social History Tobacco Use Types Packs/Day Years Used Date Smoking Tobacco: Never Assessed Comments Unknown Sex and Gender Information Value Date Recorded Sex Assigned at Not on file Legal Sex Female 5:42 AM SEALER DRY CELL Gender Identity Not on file Sexual Orientation Not on file documented as of this encounter Plan of Treatment Not on file documented as of this encounter Visit Diagnoses Diagnosis Skin sensation disturb- Primary Disturbance of skin sensation Headache(784.0) Headache halfway (current) use of anticoagulants Long-term (current) use of anticoagulants documented in this encounter Care Teams Erp Developer Relationship Specialty Start Date End Date Sharan Gómez Jr., MD [address] [place] [address] PCP - General 08/10/05 documented as of this encounter
--- OUTSIDE RECORDS SUMMARY | 2025-06-26 06:46 | XMS_ITS | Encounter Summary ---
Author Organization [facility] Address [address] [place] [address] Care Team Providers Care Frankfurter Inspector Name Role Phone Rico Muñiz MD, Sharan Jaime Primary Care Provider Encounter Details Date Type Department Care Team (Latest Contact Info) Description 10/10/1999 Outpatient Historical [facility] Sharan Gómez Jr., MD [address] [place] [address] Unspecified circulatory system disorder (Primary Dx); Unspecified essential hypertension; supervisor intermediates (current) use of anticoagulants Social History Tobacco Use Types Packs/Day Years Used Date Smoking Tobacco: Never Assessed Comments Unknown Sex and Gender Information Value Date Recorded Sex Assigned at Not on file Legal Sex Female 5:42 AM BAG MAKER Gender Identity Not on file Sexual Orientation Not on file documented as of this encounter Plan of Treatment Not on file documented as of this encounter Visit Diagnoses Diagnosis Unspecified circulatory system disorder- Primary Unspecified essential hypertension supervisor intermediates (current) use of anticoagulants Long-term (current) use of anticoagulants documented in this encounter Care Teams Frankfurter Inspector Relationship Specialty Start Date End Date Sharan Gómez Jr., MD [address] [place] [address] PCP - General 08/10/05 documented as of this encounter
--- OUTSIDE RECORDS SUMMARY | 2025-06-26 06:46 | XMS_ITS | Encounter Summary ---
Author Organization [facility] Address [address] [place] [address] Care Team Providers Care Spring Winder Name Role Phone Rico Muñiz MD, Sharan Jaime Primary Care Provider Encounter Details Date Type Department Care Team (Latest Contact Info) Description 11/14/2001 Outpatient Historical [facility] Sharan Gómez Jr., MD [address] [place] [address] OSTEOARTHROS NOS-UNSPEC (Primary Dx); HEART VALVE REPLAC NEC Social History Tobacco Use Types Packs/Day Years Used Date Smoking Tobacco: Never Assessed Comments Unknown Sex and Gender Information Value Date Recorded Sex Assigned at Not on file Legal Sex Female 5:42 AM HOME CARE AND HOME HEALTH AIDES TEACHER Gender Identity Not on file Sexual Orientation Not on file documented as of this encounter Plan of Treatment Not on file documented as of this encounter Visit Diagnoses Diagnosis Osteoarthrosis, unspecified whether generalized or localized, unspecified site- Primary Heart valve replaced by other means documented in this encounter Care Teams Spring Winder Relationship Specialty Start Date End Date Sharan Gómez Jr., MD [address] [place] [address] PCP - General 08/10/05 documented as of this encounter
--- OUTSIDE RECORDS SUMMARY | 2025-06-26 06:46 | XMS_ITS | Encounter Summary ---
Author Organization [facility] Address [address] [facility] Attn: [place] [address] Care Team Providers Care Location And Measurement Technician Name Role Phone Rico Muñiz MD, Sharan Jaime Primary Care Provider Encounter Details Date Type Department Care Team (Late st Contact Info) Description 01/04/2001 Outpatient Historical Sharan Gómez Jr., MD [address] [place] [address] Social History Tobacco Use Types Packs/Day Years Used Date Smoking Tobacco: Never Assessed Comments Unknown Sex and Gender Information Value Date Recorded Sex Assigned at Not on file Legal Sex Female 5:42 AM MIXED SIGNAL DESIGN ENGINEER Gender Identity Not on file Sexual Orientation Not on file documented as of this encounter Plan of Treatment Not on file documented as of this encounter Visit Diagnoses Not on filedocumented in this encounter Care Teams Location And Measurement Technician Relationship Specialty Start Date End Date Sharan Gómez Jr., MD [address] [place] [address] PCP - General 08/10/05 documented as of this encounter
--- OUTSIDE RECORDS SUMMARY | 2025-06-26 06:46 | XMS_ITS | Encounter Summary ---
Author Organization [facility] Address [address] [place] [address] Care Team Providers Care Armored Cable Machine Operator Name Role Phone Rico Muñiz MD, Sharan Jaime Primary Care Provider Encounter Details Date Type Department Care Team (Latest Contact Info) Description 10/01/2000 Outpatient Historical [facility] Sharan Gómez Jr., MD [address] [place] [address] Endocarditis, valve unspecified, unspecified cause (Primary Dx); Other and unspecified hyperlipidemia; Osteoarthrosis, unspecified whether generalized or localized, unspecified site Social History Tobacco Use Types Packs/Day Years Used Date Smoking Tobacco: Never Assessed Comments Unknown Sex and Gender Information Value Date Recorded Sex Assigned at Not on file Legal Sex Female 5:42 AM PERSONNEL ANALYST Gender Identity Not on file Sexual Orientation Not on file documented as of this encounter Plan of Treatment Not on file documented as of this encounter Visit Diagnoses Diagnosis Endocarditis, valve unspecified, unspecified cause- Primary Other and unspecified hyperlipidemia Osteoarthrosis, unspecified whether generalized or localized, unspecified site documented in this encounter Care Teams Armored Cable Machine Operator Relationship Specialty Start Date End Date Sharan Gómez Jr., MD [address] [place] [address] PCP - General 08/10/05 documented as of this encounter
--- OUTSIDE RECORDS SUMMARY | 2025-06-26 06:46 | XMS_ITS | Encounter Summary ---
Author Organization [facility] Address [address] [place] [address] Care Team Providers Care Heel Seater Name Role Phone Rico Muñiz MD, Sharan Jaime Primary Care Provider Encounter Details Date Type Department Care Team (Latest Contact Info) Description 05/24/2000 Outpatient Historical [facility] Sharan Gómez Jr., MD [address] [place] [address] Unspecified essential hypertension (Primary Dx); Osteoporosis, unspecified Social History Tobacco Use Types Packs/Day Years Used Date Smoking Tobacco: Never Assessed Comments Unknown Sex and Gender Information Value Date Recorded Sex Assigned at Not on file Legal Sex Female 5:42 AM PRACTICING DERMATOLOGIST Gender Identity Not on file Sexual Orientation Not on file documented as of this encounter Plan of Treatment Not on file documented as of this encounter Visit Diagnoses Diagnosis Unspecified essential hypertension- Primary Osteoporosis, unspecified documented in this encounter Care Teams Heel Seater Relationship Specialty Start Date End Date Sharan Gómez Jr., MD [address] [place] [address] PCP - General 08/10/05 documented as of this encounter
--- OUTSIDE RECORDS SUMMARY | 2025-06-26 06:46 | XMS_ITS | Encounter Summary ---
Author Organization [facility] Address [address] [place] [address] Care Team Providers Care Bellows Filler Name Role Phone Rico Muñiz MD, Sharan Jaime Primary Care Provider Encounter Details Date Type Department Care Team (Latest Contact Info) Description 07/04/2005 Outpatient Historical [facility]-Faisal Lopez Michelle [address] [place] [address] Serge Arrington MD [address] [place] [address] HYPERTENSION NOS (Primary Dx) Social History Tobacco Use Types Packs/Day Years Used Date Smoking Tobacco: Never Assessed Comments Unknown Sex and Gender Information Value Date Recorded Sex Assigned at Not on file Legal Sex Female 5:42 AM EXTRUSION MANAGER Gender Identity Not on file Sexual Orientation Not on file documented as of this encounter Plan of Treatment Not on file documented as of this encounter Visit Diagnoses Diagnosis Unspecified essential hypertension- Primary documented in this encounter Care Teams Bellows Filler Relationship Specialty Start Date End Date Sharan Gómez Jr., MD [address] [place] [address] PCP - General 08/10/05 documented as of this encounter
--- OUTSIDE RECORDS SUMMARY | 2025-06-26 06:46 | XMS_ITS | Encounter Summary ---
Author Organization [facility] Address [address] [place] [address] Care Team Providers Care Mba Intern Name Role Phone Rico Muñiz MD, Sharan Jaime Primary Care Provider Encounter Details Date Type Department Care Team (Latest Contact Info) Description 12/31/2000 Outpatient Historical [facility] [place] [address] [facility] [address] [place] [address] Larry Olvera MD Screening for malignant neoplasm of the rectum (Primary Dx) Social History Tobacco Use Types Packs/Day Years Used Date Smoking Tobacco: Never Assessed Comments Unknown Sex and Gender Information Value Date Recorded Sex Assigned at Not on file Legal Sex Female 5:[address] Gender Identity Not on file Sexual Orientation Not on file documented as of this encounter Plan of Treatment Not on file documented as of this encounter Visit Diagnoses Diagnosis Screening for malignant neoplasm of the rectum- Primary documented in this encounter Care Teams Mba Intern Relationship Specialty Start Date End Date Sharan Gómez Jr., MD [address] [place] [address] PCP - General 08/10/05 documented as of this encounter
--- OUTSIDE RECORDS SUMMARY | 2025-06-26 06:46 | XMS_ITS | Encounter Summary ---
Author Organization [facility] Address [address] [place] [address] Care Team Providers Care Box Icer Name Role Phone Rico Muñiz MD, Sharan Jaime Primary Care Provider Encounter Details Date Type Department Care Team (Latest Contact Info) Description 06/24/2001 Outpatient Historical [facility] Luis AFaisal Lpoez [address] [place] [address] Serge Arrington MD [address] [place] [address] Mitral valve disorder (Primary Dx); Unspecified essential hypertension; Other and unspecified hyperlipidemia; Dizziness and giddiness Social History Tobacco Use Types Packs/Day Years Used Date Smoking Tobacco: Never Assessed Comments Unknown Sex and Gender Information Value Date Recorded Sex Assigned at Not on file Legal Sex Female 5:42 AM CORE SHAPER SIDES Gender Identity Not on file Sexual Orientation Not on file documented as of this encounter Plan of Treatment Not on file documented as of this encounter Visit Diagnoses Diagnosis Mitral valve disorder- Primary Mitral valve disorders Unspecified essential hypertension Other and unspecified hyperlipidemia Dizziness and giddiness documented in this encounter Care Teams Box Icer Relationship Specialty Start Date End Date Sharan Gómez Jr., MD [address] [place] [address] PCP - General 08/10/05 documented as of this encounter
--- OUTSIDE RECORDS SUMMARY | 2025-06-26 06:46 | XMS_ITS | Encounter Summary ---
Author Organization [facility] Address [address] [place] [address] Care Team Providers Care Road Driver Name Role Phone Rico Muñiz MD, Sharan Jaime Primary Care Provider Encounter Details Date Type Department Care Team (Latest Contact Info) Description 07/06/2006 Outpatient Historical [facility] Imaging Services-Faisal Lopez Michelle [address] [place] [phone] Jennifer Cash MD NO ADDRESS ON FILE Unspecified Essential Hypertension (Primary Dx); Other Chest Pain Social History Tobacco Use Types Packs/Day Years Used Date Smoking Tobacco: Never Assessed Comments Unknown Sex and Gender Information Value Date Recorded Sex Assigned at Not on file Legal Sex Female 5:42 AM BRIQUETTE MOLDER Gender Identity Not on file Sexual Orientation Not on file documented as of this encounter Plan of Treatment Not on file documented as of this encounter Visit Diagnoses Diagnosis Unspecified essential hypertension- Primary Other chest pain documented in this encounter Care Teams Road Driver Relationship Specialty Start Date End Date Sharan Gómez Jr., MD [address] [place] [address] PCP - General 08/10/05 documented as of this encounter
--- OUTSIDE RECORDS SUMMARY | 2025-06-26 06:46 | XMS_ITS | Encounter Summary ---
Author Organization [facility] Address [address] [place] [address] Care Team Providers Care Breaker Boss Name Role Phone Rico Muñiz MD, Sharan Jaime Primary Care Provider Encounter Details Date Type Department Care Team (Late st Contact Info) Description 10/25/2020 Lab Requisition [facility] Laboratory Services [address] [place] [address] Paulina Peterson MD [address] [place] [address] Social History Tobacco Use Types Packs/Day Years Used Date Smoking Tobacco: Never Assessed Comments Unknown Sex and Gender Information Value Date Recorded Sex Assigned at Not on file Legal Sex Female 5:42 AM SAP BASIS ARCHITECT Gender Identity Not on file Sexual Orientation Not on file documented as of this encounter Plan of Treatment Not on file documented as of this encounter Procedures Procedure Name Priority Date/Time Associated Diagnosis Comments PROTIME-INR Routine 10/25/2020 5:18 AM SAP BASIS ARCHITECT documented in this encounter Results * (ABNORMAL) PROTIME-INR (10/25/2020 5:18 AM SAP BASIS ARCHITECT) PROTIME 34.3(H) 11.9 - 15.5 Seconds 10/25/2020 7:01 PM SAP BASIS ARCHITECT [facility] INR 3.3(H) 0.8 - 1.2 10/25/2020 7:01 PM SAP BASIS ARCHITECT [facility] Blood Collection / Unknown 10/25/2020 5:18 AM SAP BASIS ARCHITECT 10/25/2020 6:44 PM SAP BASIS ARCHITECT Narrative [facility] - 10/25/2020 7:01 PM SAP BASIS ARCHITECT Expected Values for INR: DVT/PE Goal INR 2.5; range 2.0 - 3.0 Valve Replacement Tissue Goal INR 2.5; range 2.0 - 3.0 Valve Replacement Mechanical Goal INR 3.0; range 2.5 - 3.5 POST-OR Goal INR 2.5; range 2.0 - 3.0 or Goal INR 3.0; range 2.5 - 3.5 Atrial Fibrillation Goal INR 2.5; range 2.0 - 3.0 Ischemic Stroke Goal INR 2.5; range 2.0 - 3.0 For additional information see Guidelines for Anticoagulation available from the pharmacy [facility] Pharm D. us Paulina Peterson MD HEMATOLOGY ORDERABLES Maame smart Result [facility] [address] [place] [address] documented in this encounter Visit Diagnoses Not on filedocumented in this encounter Care Teams Breaker Boss Relationship Specialty Start Date End Date Sharan Gómez Jr., MD [address] [place] [phone] PCP - General 08/10/05 documented as of this encounter
--- OUTSIDE RECORDS SUMMARY | 2025-06-26 06:46 | XMS_ITS | Encounter Summary ---
Author Organization [facility] Address [address] [place] [address] Care Team Providers Care Agency Development Manager Name Role Phone Rico Muñiz MD, Sharan Jaime Primary Care Provider Encounter Details Date Type Department Care Team (Latest Contact Info) Description 03/03/2002 Outpatient Historical [facility] Sharan Gómez Jr., MD [address] [place] [address] HYPERTENSION NOS (Primary Dx); ENDOCARDITIS NOS; [facility] ANTICOAG USE; FAMILY HX-DIABETES MELLITUS Social History Tobacco Use Types Packs/Day Years Used Date Smoking Tobacco: Never Assessed Comments Unknown Sex and Gender Information Value Date Recorded Sex Assigned at Not on file Legal Sex Female 5:42 AM CLINICAL EDUCATION COORDINATOR Gender Identity Not on file Sexual Orientation Not on file documented as of this encounter Plan of Treatment Not on file documented as of this encounter Visit Diagnoses Diagnosis Unspecified essential hypertension- Primary Endocarditis, valve unspecified, unspecified cause group home (current) use of anticoagulants Long-term (current) use of anticoagulants Family history of diabetes mellitus documented in this encounter Care Teams Agency Development Manager Relationship Specialty Start Date End Date Sharan Gómez Jr., MD [address] [place] [phone] PCP - General 08/10/05 documented as of this encounter
--- OUTSIDE RECORDS SUMMARY | 2025-06-26 06:46 | XMS_ITS | Encounter Summary ---
Author Organization [facility] Address [address] [place] [address] Care Team Providers Care Psychology Tech Name Role Phone Rico Muñiz MD, Sharan Jaime Primary Care Provider Encounter Details Date Type Department Care Team (Latest Contact Info) Description 02/29/2000 Outpatient Historical [facility] Sharan Gómez Jr., MD [address] [place] [address] Pure hypercholesterolem (Primary Dx); Heart valve replaced by other means; Osteoporosis, unspecified; [facility] (current) use of anticoagulants Social History Tobacco Use Types Packs/Day Years Used Date Smoking Tobacco: Never Assessed Comments Unknown Sex and Gender Information Value Date Recorded Sex Assigned at Not on file Legal Sex Female 5:42 AM PMP Gender Identity Not on file Sexual Orientation Not on file documented as of this encounter Plan of Treatment Not on file documented as of this encounter Visit Diagnoses Diagnosis Pure hypercholesterolem- Primary Pure hypercholesterolemia Heart valve replaced by other means Osteoporosis, unspecified global marketing specialist (current) use of anticoagulants Long-term (current) use of anticoagulants documented in this encounter Care Teams Psychology Tech Relationship Specialty Start Date End Date Sharan Gómez Jr., MD [address] [place] [address] PCP - General 08/10/05 documented as of this encounter
--- OUTSIDE RECORDS SUMMARY | 2025-06-26 06:46 | XMS_ITS | Encounter Summary ---
Author Organization [facility] Address [address] [place] [address] Care Team Providers Care Resource Development Manager Name Role Phone Rico Muñiz MD, Sharan Jaime Primary Care Provider Encounter Details Date Type Department Care Team (Late st Contact Info) Description 2020 Lab Requisition [facility] Laboratory Services [address] [place] [phone] Tabatha Lynn, [facility] [address] [place] [address] Social History Tobacco Use Types Packs/Day Years Used Date Smoking Tobacco: Never Assessed Comments Unknown Sex and Gender Information Value Date Recorded Sex Assigned at Not on file Legal Sex Female 5:42 AM DYE FEEDER Gender Identity Not on file Sexual Orientation Not on file documented as of this encounter Plan of Treatment Not on file documented as of this encounter Procedures Procedure Name Priority Date/Time Associated Diagnosis Comments PROTIME-INR Routine 2020 6:14 AM DYE FEEDER documented in this encounter Results * (ABNORMAL) PROTIME-INR (2020 6:14 AM DYE FEEDER) PROTIME 23.0(H) 11.9 - 15.5 Seconds 2020 7:28 PM DYE FEEDER [facility] INR 2.0(H) 0.8 - 1.2 2020 7:28 PM DYE FEEDER [facility] Blood Collection / Unknown 2020 6:14 AM DYE FEEDER 2020 7:05 PM DYE FEEDER Narrative [facility] - 2020 7:28 PM DYE FEEDER Expected Values for INR: DVT/PE Goal INR 2.5; range 2.0 - 3.0 Valve Replacement Tissue Goal INR 2.5; range 2.0 - 3.0 Valve Replacement Mechanical Goal INR 3.0; range 2.5 - 3.5 POST-AZ Goal INR 2.5; range 2.0 - 3.0 or Goal INR 3.0; range 2.5 - 3.5 Atrial Fibrillation Goal INR 2.5; range 2.0 - 3.0 Ischemic Stroke Goal INR 2.5; range 2.0 - 3.0 For additional information see Guidelines for Anticoagulation available from the pharmacy [facility], Pharm D. Tabatha Neff MUTUAL FUND SALES AGENT HEMATOLOGY ORDERABLES Final Result Performing Organization Address City/State/[facility] Co de Phone Number [facility] [address] [place] [address] documented in this encounter Visit Diagnoses Not on filedocumented in this encounter Care Teams Resource Development Manager Relationship Specialty Start Date End Date Sharan Gómez Jr., MD [address] [place] [address] PCP - General 08/10/05 documented as of this encounter
--- OUTSIDE RECORDS SUMMARY | 2025-06-26 06:46 | XMS_ITS | Encounter Summary ---
Author Organization [facility] Address [address] [facility] Attn: [place] [address] Care Team Providers Care Candles Pourer Name Role Phone Rico Muñiz MD, Sharan Jaime Primary Care Provider Encounter Details Date Type Department Care Team (Late st Contact Info) Description 05/24/2000 Outpatient Historical Sharan Gómez Jr., MD [address] [place] [address] Social History Tobacco Use Types Packs/Day Years Used Date Smoking Tobacco: Never Assessed Comments Unknown Sex and Gender Information Value Date Recorded Sex Assigned at Not on file Legal Sex Female 5:42 AM BLOOD TYPER Gender Identity Not on file Sexual Orientation Not on file documented as of this encounter Plan of Treatment Not on file documented as of this encounter Visit Diagnoses Not on filedocumented in this encounter Care Teams Candles Pourer Relationship Specialty Start Date End Date Sharan Gómez Jr., MD [address] [place] [address] PCP - General 08/10/05 documented as of this encounter
--- OUTSIDE RECORDS SUMMARY | 2025-06-26 06:46 | XMS_ITS | Encounter Summary ---
Author Organization [facility] Address [address] [place] [address] Care Team Providers Care Senior Qa Tester Name Role Phone Rico Muñiz MD, Sharan Jaime Primary Care Provider Encounter Details Date Type Department Care Team (Latest Contact Info) Description 06/24/2001 Outpatient Historical [facility] Imaging Services-Faisal Lopez Michelle [address] [place] [address] Serge Arrington MD [address] [place] [address] Unspecified congenital anomaly of heart (Primary Dx) Social History Tobacco Use Types Packs/Day Years Used Date Smoking Tobacco: Never Assessed Comments Unknown Sex and Gender Information Value Date Recorded Sex Assigned at Not on file Legal Sex Female 5:42 AM INCIDENT RESPONSE MANAGER Gender Identity Not on file Sexual Orientation Not on file documented as of this encounter Plan of Treatment Not on file documented as of this encounter Visit Diagnoses Diagnosis Unspecified congenital anomaly of heart- Primary documented in this encounter Care Teams Senior Qa Tester Relationship Specialty Start Date End Date Sharan Gómez Jr., MD [address] [place] [address] PCP - General 08/10/05 documented as of this encounter
--- OUTSIDE RECORDS SUMMARY | 2025-06-26 06:46 | XMS_ITS | Encounter Summary ---
Author Organization [facility] Address [address] [place] [address] Care Team Providers Care Security Guard Supervisor Name Role Phone Rico Muñiz MD, Sharan Jaime Primary Care Provider Encounter Details Date Type Department Care Team (Latest Contact Info) Description 01/04/2001 Outpatient Historical [facility] Sharan Gómez Jr., MD [address] [place] [address] Acute upper respiratory infections of unspecified site (Primary Dx); extermination supervisor (current) use of anticoagulants Social History Tobacco Use Types Packs/Day Years Used Date Smoking Tobacco: Never Assessed Comments Unknown Sex and Gender Information Value Date Recorded Sex Assigned at Not on file Legal Sex Female 5:42 AM ENTERPRISE CLOUD ARCHITECT Gender Identity Not on file Sexual Orientation Not on file documented as of this encounter Plan of Treatment Not on file documented as of this encounter Visit Diagnoses Diagnosis Acute upper respiratory infections of unspecified site- Primary extermination supervisor (current) use of anticoagulants Long-term (current) use of anticoagulants documented in this encounter Care Teams Security Guard Supervisor Relationship Specialty Start Date End Date Sharan Gómez Jr., MD [address] [place] [address] PCP - General 08/10/05 documented as of this encounter
--- OUTSIDE RECORDS SUMMARY | 2025-06-26 06:46 | XMS_ITS | Encounter Summary ---
Author Organization [facility] Address [address] [facility] Attn: [place] [address] Care Team Providers Care Utility Bagger Name Role Phone Rico Muñiz MD, Sharan Jaime Primary Care Provider Encounter Details Date Type Department Care Team (Late st Contact Info) Description 08/05/2001 Outpatient Historical Sharan Gómez Jr., MD [address] [place] [address] Social History Tobacco Use Types Packs/Day Years Used Date Smoking Tobacco: Never Assessed Comments Unknown Sex and Gender Information Value Date Recorded Sex Assigned at Not on file Legal Sex Female 5:42 AM CLINICAL CARE COORDINATOR Gender Identity Not on file Sexual Orientation Not on file documented as of this encounter Plan of Treatment Not on file documented as of this encounter Visit Diagnoses Not on filedocumented in this encounter Care Teams Utility Bagger Relationship Specialty Start Date End Date Sharan Gómez Jr., MD [address] [place] [address] PCP - General 08/10/05 documented as of this encounter
--- OUTSIDE RECORDS SUMMARY | 2025-06-26 06:46 | XMS_ITS | Encounter Summary ---
Author Organization [facility] Address [address] [place] [address] Care Team Providers Care Hardware Technician Name Role Phone Rico Muñiz MD, Sharan Jaime Primary Care Provider Encounter Details Date Type Department Care Team (Latest Contact Info) Description 01/03/2002 Outpatient Historical [facility] Sharan Gómez Jr., MD [address] [place] [address] FLU W RESP MANIFEST NEC (Primary Dx); [facility] [place] [facility] ANTICOAG USE Social History Tobacco Use Types Packs/Day Years Used Date Smoking Tobacco: Never Assessed Comments Unknown Sex and Gender Information Value Date Recorded Sex Assigned at Not on file Legal Sex Female 5:42 AM PLUGGER Gender Identity Not on file Sexual Orientation Not on file documented as of this encounter Plan of Treatment Not on file documented as of this encounter Visit Diagnoses Diagnosis Influenza with other respiratory manifestations- Primary pen[facility]ent[facility] (current) use of anticoagulants Long-term (current) use of anticoagulants documented in this encounter Care Teams Hardware Technician Relationship Specialty Start Date End Date Sharan Gómez Jr., MD [address] [place] [address] PCP - General 08/10/05 documented as of this encounter
--- OUTSIDE RECORDS SUMMARY | 2025-06-26 06:46 | XMS_ITS | Encounter Summary ---
Author Organization [facility] Address [address] [place] [address] Care Team Providers Care Biology Lecturer Name Role Phone Rico Muñiz MD, Sharan Jaime Primary Care Provider Encounter Details Date Type Department Care Team (Latest Contact Info) Description 04/06/2000 Outpatient Historical [facility] Sharan Gómez Jr., MD [address] [place] [address] Symptomatic menopausal or female climacteric states (Primary Dx); Endocarditis, valve unspecified, unspecified cause; intermodal dispatcher (current) use of anticoagulants Social History Tobacco Use Types Packs/Day Years Used Date Smoking Tobacco: Never Assessed Comments Unknown Sex and Gender Information Value Date Recorded Sex Assigned at Not on file Legal Sex Female 5:42 AM CASING MAN Gender Identity Not on file Sexual Orientation Not on file documented as of this encounter Plan of Treatment Not on file documented as of this encounter Visit Diagnoses Diagnosis Symptomatic menopausal or female climacteric states- Primary Endocarditis, valve unspecified, unspecified cause [facility] (current) use of anticoagulants Long-term (current) use of anticoagulants documented in this encounter Care Teams Biology Lecturer Relationship Specialty Start Date End Date Sharan Gómez Jr., MD [address] [place] [phone] PCP - General 08/10/05 documented as of this encounter
--- OUTSIDE RECORDS SUMMARY | 2025-06-26 06:46 | XMS_ITS | Encounter Summary ---
Author Organization [facility] Address [address] [place] [address] Care Team Providers Care Manager Of Learning Name Role Phone Rico Muñiz MD, Sharan Jaime Primary Care Provider Encounter Details Date Type Department Care Team (Late st Contact Info) Description 10/16/[address] [facility] Laboratory Services [place] [address] [place] [phone] Mtnv, External Provider [address] [facility] [address] [place] [address] Social History Tobacco Use Types Packs/Day Years Used Date Smoking Tobacco: Never Assessed Comments Unknown Sex and Gender Information Value Date Recorded Sex Assigned at Not on file Legal Sex Female 5:42 AM PAINT TESTER Gender Identity Not on file Sexual Orientation Not on file documented as of this encounter Plan of Treatment Not on file documented as of this encounter Procedures Procedure Name Priority Date/Time Associated Diagnosis Comments PROTIME-INR Routine 10/16/2020 10:20 AM PAINT TESTER documented in this encounter Results * (ABNORMAL) PROTIME-INR (10/16/2020 10:20 AM PAINT TESTER) PROTIME 42.0(H) 12.0 - 14.4 Seconds 10/16/2020 12:05 PM PAINT TESTER [facility] INR 4.7(H) 0.8 - 1.2 10/16/2020 12:05 PM PAINT TESTER [facility] Blood 10/16/2020 10:2 0 AM PAINT TESTER 10/16/2020 11:47 AM PAINT TESTER us External Provider Mtnv HEMATOLOGY ORDERABLES Fin al Result [facility] CLIA # [id number] [address] [place] [address] documented in this encounter Visit Diagnoses Not on filedocumented in this encounter Care Teams Manager Of Learning Relationship Specialty Start Date End Date Sharan Gómez Jr., MD [address] [place] [address] PCP - General 08/10/05 documented as of this encounter
--- OUTSIDE RECORDS SUMMARY | 2025-06-26 06:46 | XMS_ITS | Encounter Summary ---
Author Organization [facility] Address [address] [place] [address] Care Team Providers Care Psychiatric Arnp Name Role Phone Rico Muñiz MD, Sharan Jaime Primary Care Provider Encounter Details Date Type Department Care Team (Latest Contact Info) Description 06/20/1999 Outpatient Historical [facility] Imaging Services-Faisal Lopez Michelle [address] [place] [address] Serge Arrington MD [address] [place] [address] Cough (Primary Dx) Social History Tobacco Use Types Packs/Day Years Used Date Smoking Tobacco: Never Assessed Comments Unknown Sex and Gender Information Value Date Recorded Sex Assigned at Not on file Legal Sex Female 5:42 AM SILK EXAMINER Gender Identity Not on file Sexual Orientation Not on file documented as of this encounter Plan of Treatment Not on file documented as of this encounter Visit Diagnoses Diagnosis Cough- Primary documented in this encounter Care Teams Psychiatric Arnp Relationship Specialty Start Date End Date Sharan Gómez Jr., MD [address] [place] [address] PCP - General 08/10/05 documented as of this encounter
--- OUTSIDE RECORDS SUMMARY | 2025-06-26 06:46 | XMS_ITS | Encounter Summary ---
Author Organization [facility] Address [address] [place] [address] Care Team Providers Care Garage Mechanic Name Role Phone Rico Muñiz MD, Sharan Jaime Primary Care Provider Encounter Details Date Type Department Care Team (Late st Contact Info) Description 07/26/1999 Outpatient Historical [facility] Cardiology- [place] [address] [place] [phone] [place] Bone [address] [place] [address] Pain in limb (Primary Dx); Heart valve replaced by other means Social History Tobacco Use Types Packs/Day Years Used Date Smoking Tobacco: Never Assessed Comments Unknown Sex and Gender Information Value Date Recorded Sex Assigned at Not on file Legal Sex Female 5:42 AM GEOSPATIAL INFORMATION SCIENTIST Gender Identity Not on file Sexual Orientation Not on file documented as of this encounter Plan of Treatment Not on file documented as of this encounter Visit Diagnoses Diagnosis Pain in limb- Primary Pain in soft tissues of limb Heart valve replaced by other means documented in this encounter Care Teams Garage Mechanic Relationship Specialty Start Date End Date Sharan Gómez Jr., MD [address] [place] [address] PCP - General 08/10/05 documented as of this encounter
--- OUTSIDE RECORDS SUMMARY | 2025-06-26 06:46 | XMS_ITS | Encounter Summary ---
Author Organization [facility] Address [address] [place] [address] Care Team Providers Care Club Car Attendant Name Role Phone Rico Muñiz MD, Sharan Jaime Primary Care Provider Encounter Details Date Type Department Care Team (Latest Contact Info) Description 08/10/2005 Outpatient Historical [facility]enter[facility]- [place] [address] [facility] [address] [place] [address] Bill Negron MD [address] [place] [address] ABN FIND-STOOL CONTENTS-OCC BLOOD (Primary Dx); INT HEMORRHOID W/O COMPL; ANAL FISSURE Social History Tobacco Use Types Packs/Day Years Used Date Smoking Tobacco: Never Assessed Comments Unknown Sex and Gender Information Value Date Recorded Sex Assigned at Not on file Legal Sex Female 5:42 AM STAFF FORESTER Gender Identity Not on file Sexual Orientation Not on file documented as of this encounter Plan of Treatment Not on file documented as of this encounter Visit Diagnoses Diagnosis Nonspecific abnormal finding in stool contents- Primary Internal hemorrhoids without mention of complication Anal fissure documented in this encounter Care Teams Club Car Attendant Relationship Specialty Start Date End Date Sharan Gómez Jr., MD [address] [place] [address] PCP - General 08/10/05 documented as of this encounter
--- OUTSIDE RECORDS SUMMARY | 2025-06-26 06:46 | XMS_ITS | Encounter Summary ---
Author Organization [facility] Address [address] [place] [address] Care Team Providers Care Operation Shift Supervisor Name Role Phone Rico Muñiz MD, Sharan Jaime Primary Care Provider Encounter Details Date Type Department Care Team (Latest Contact Info) Description 09/12/2000 Outpatient Historical [facility] Sharan Gómez Jr., MD [address] [place] [address] Other and unspecified hyperlipidemia (Primary Dx); Other nonspecific finding on examination of urine; Personal history of other disorder of urinary system; long-term (current) use of anticoagulants Social History Tobacco Use Types Packs/Day Years Used Date Smoking Tobacco: Never Assessed Comments Unknown Sex and Gender Information Value Date Recorded Sex Assigned at Not on file Legal Sex Female 5:42 AM SUPERVISOR PLASTIC SHEETS Gender Identity Not on file Sexual Orientation Not on file documented as of this encounter Plan of Treatment Not on file documented as of this encounter Visit Diagnoses Diagnosis Other and unspecified hyperlipidemia- Primary Other nonspecific finding on examination of urine Personal history of other disorder of urinary system long-term (current) use of anticoagulants Long-term (current) use of anticoagulants documented in this encounter Care Teams Operation Shift Supervisor Relationship Specialty Start Date End Date Sharan Gómez Jr., MD [address] [place] [phone] PCP - General 08/10/05 documented as of this encounter
--- OUTSIDE RECORDS SUMMARY | 2025-06-26 06:46 | XMS_ITS | Encounter Summary ---
Author Organization [facility] Address [address] [place] [address] Care Team Providers Care Utility Bill Complaints Investigator Name Role Phone Rico Muñiz MD, Sharan Jaime Primary Care Provider Encounter Details Date Type Department Care Team (Latest Contact Info) Description 11/09/2000 Outpatient Historical [facility] Sharan Gómez Jr., MD [address] [place] [address] Unspecified essential hypertension (Primary Dx); Pure hypercholesterolem; Endocarditis, valve unspecified, unspecified cause; [facility] (current) use of anticoagulants Social History Tobacco Use Types Packs/Day Years Used Date Smoking Tobacco: Never Assessed Comments Unknown Sex and Gender Information Value Date Recorded Sex Assigned at Not on file Legal Sex Female 5:42 AM JUNIOR COPYWRITER Gender Identity Not on file Sexual Orientation Not on file documented as of this encounter Plan of Treatment Not on file documented as of this encounter Visit Diagnoses Diagnosis Unspecified essential hypertension- Primary Pure hypercholesterolem Pure hypercholesterolemia Endocarditis, valve unspecified, unspecified cause terminal gauger supervisor (current) use of anticoagulants Long-term (current) use of anticoagulants documented in this encounter Care Teams Utility Bill Complaints Investigator Relationship Specialty Start Date End Date Sharan Gómez Jr., MD [address] [place] [address] PCP - General 08/10/05 documented as of this encounter
--- OUTSIDE RECORDS SUMMARY | 2025-06-26 06:46 | XMS_ITS | Encounter Summary ---
Author Organization [facility] Address [address] [place] [address] Care Team Providers Care Power Shovel Mechanic Name Role Phone Rico Muñiz MD, Sharan Jaime Primary Care Provider Encounter Details Date Type Department Care Team (Latest Contact Info) Description 04/19/2001 Outpatient Historical [facility] Arun Nichols NO ADDRESS ON FILE Contusion of hand(s) (Primary Dx) Social History Tobacco Use Types Packs/Day Years Used Date Smoking Tobacco: Never Assessed Comments Unknown Sex and Gender Information Value Date Recorded Sex Assigned at Not on file Legal Sex Female 5:42 AM SPACE CONTROL SUPERVISOR Gender Identity Not on file Sexual Orientation Not on file documented as of this encounter Plan of Treatment Not on file documented as of this encounter Visit Diagnoses Diagnosis Contusion of hand(s)- Primary documented in this encounter Care Teams Power Shovel Mechanic Relationship Specialty Start Date End Date Sharan Gómez Jr., MD [address] [place] [address] PCP - General 08/10/05 documented as of this encounter
--- OUTSIDE RECORDS SUMMARY | 2025-06-26 06:46 | XMS_ITS | Encounter Summary ---
Author Organization [facility] Address [address] [facility] Attn: [place] [address] Care Team Providers Care Loader Operator Name Role Phone Rico Muñiz MD, [...] file Legal Sex Female 5:42 AM PHYSICIAN INDUSTRIAL Gender Identity Not on file Sexual Orientation Not on file documented as of this encounter Plan of Treatment Not on file documented as of this encounter Visit Diagnoses Not on filedocumented in this encounter Care Teams Loader Operator Relationship Specialty Start Date End Date Sharan Gómez Jr., MD [address] [place] [address] PCP - General 08/10/05 documented as of this encounter
--- OUTSIDE RECORDS SUMMARY | 2025-06-26 06:46 | XMS_ITS | Encounter Summary ---
Author Organization [facility] Address [address] [place] [address] Care Team Providers Care Keg Washer Name Role Phone Rico Muñiz MD, Sharan Jaime Primary Care Provider Encounter Details Date Type Department Care Team (Latest Contact Info) Description 01/30/2001 Outpatient Historical [facility] Sharan Gómez Jr., MD [address] [place] [address] Endocarditis, valve unspecified, unspecified cause (Primary Dx); Acute sinusitis, unspecified; Bronchitis, not specified as acute or chronic Social History Tobacco Use Types Packs/Day Years Used Date Smoking Tobacco: Never Assessed Comments Unknown Sex and Gender Information Value Date Recorded Sex Assigned at Not on file Legal Sex Female 5:42 AM JOB ANALYST Gender Identity Not on file Sexual Orientation Not on file documented as of this encounter Plan of Treatment Not on file documented as of this encounter Visit Diagnoses Diagnosis Endocarditis, valve unspecified, unspecified cause- Primary Acute sinusitis, unspecified Bronchitis, not specified as acute or chronic documented in this encounter Care Teams Keg Washer Relationship Specialty Start Date End Date Sharan Gómez Jr., MD [address] [place] [address] PCP - General 08/10/05 documented as of this encounter
--- OUTSIDE RECORDS SUMMARY | 2025-06-26 06:46 | XMS_ITS | Encounter Summary ---
Author Organization [facility] Address [address] [facility] Attn: [place] [address] Care Team Providers Care Stick Welder Name Role Phone Rico Muñiz MD, Sharan Jaime Primary Care Provider Encounter Details Date Type Department Care Team (Late st Contact Info) Description 02/15/2001 Outpatient Historical Sharan Gómez Jr., MD [address] [place] [address] Social History Tobacco Use Types Packs/Day Years Used Date Smoking Tobacco: Never Assessed Comments Unknown Sex and Gender Information Value Date Recorded Sex Assigned at Not on file Legal Sex Female 5:42 AM CLASSIFIED ADVERTISING MANAGER Gender Identity Not on file Sexual Orientation Not on file documented as of this encounter Plan of Treatment Not on file documented as of this encounter Visit Diagnoses Not on filedocumented in this encounter Care Teams Stick Welder Relationship Specialty Start Date End Date Sharan Gómez Jr., MD [address] [place] [address] PCP - General 08/10/05 documented as of this encounter
--- OUTSIDE RECORDS SUMMARY | 2025-06-26 06:46 | XMS_ITS | Encounter Summary ---
Author Organization [facility] Address [address] [place] [address] Care Team Providers Care Coal Pulverizing Operator Name Role Phone Rico Muñiz MD, Sharan Jaime Primary Care Provider Encounter Details Date Type Department Care Team (Latest Contact Info) Description 07/02/[address] [facility] Echocardiography - National [address] [place] [phone] [id number] Social History Tobacco Use Types Packs/Day Years Used Date Smoking Tobacco: Never Assessed Comments Unknown Sex and Gender Information Value Date Recorded Sex Assigned at Not on file Legal Sex Female 5:42 AM MANIPULATOR OPERATOR Gender Identity Not on file Sexual Orientation Not on file documented as of this encounter Plan of Treatment Not on file documented as of this encounter Visit Diagnoses Not on filedocumented in this encounter Care Teams Coal Pulverizing Operator Relationship Specialty Start Date End Date Sharan Gómez Jr., MD [address] [place] [address] PCP - General 08/10/05 documented as of this encounter
--- OUTSIDE RECORDS SUMMARY | 2025-06-26 06:46 | XMS_ITS | Encounter Summary ---
Author Organization [facility] Address [address] [place] [address] Care Team Providers Care Chief Hospital Administrator Name Role Phone Rico Muñiz MD, Sharan Jaime Primary Care Provider Encounter Details Date Type Department Care Team (Late st Contact Info) Description 06/24/2001 Outpatient Historical [facility] Serge Arrington MD [address] [facility] [address] [place] [phone] Unspecified essential hypertension (Primary Dx); Other and unspecified hyperlipidemia Social History Tobacco Use Types Packs/Day Years Used Date Smoking Tobacco: Never Assessed Comments Unknown Sex and Gender Information Value Date Recorded Sex Assigned at Not on file Legal Sex Female 5:42 AM VENEREAL DISEASE CONTROL HEAD Gender Identity Not on file Sexual Orientation Not on file documented as of this encounter Plan of Treatment Not on file documented as of this encounter Visit Diagnoses Diagnosis Unspecified essential hypertension- Primary Other and unspecified hyperlipidemia documented in this encounter Care Teams Chief Hospital Administrator Relationship Specialty Start Date End Date Sharan Gómez Jr., MD [address] [place] [address] PCP - General 08/10/05 documented as of this encounter
--- OUTSIDE RECORDS SUMMARY | 2025-06-26 06:46 | XMS_ITS | Encounter Summary ---
Author Organization [facility] Address [address] [place] [address] Care Team Providers Care Geological Engineer Name Role Phone Rico Muñiz MD, Sharan Jaime Primary Care Provider Encounter Details Date Type Department Care Team (Latest Contact Info) Description 06/18/1998 Outpatient Historical [facility] Int Luis [facility]aisal [facility] [address] [place] [address] Serge Arrington MD [address] [place] [address] Mitral valve disorder (Primary Dx); Unspecified essential hypertension; Hematuria; Routine medical exam Social History Tobacco Use Types Packs/Day Years Used Date Smoking Tobacco: Never Assessed Comments Unknown Sex and Gender Information Value Date Recorded Sex Assigned at Not on file Legal Sex Female 5:42 AM DESIGN CELL ENGINEER Gender Identity Not on file Sexual Orientation Not on file documented as of this encounter Plan of Treatment Not on file documented as of this encounter Visit Diagnoses Diagnosis Mitral valve disorder- Primary Mitral valve disorders Unspecified essential hypertension Hematuria Routine medical exam Routine general medical examination at a health care facility documented in this encounter Care Teams Geological Engineer Relationship Specialty Start Date End Date Sharan Gómez Jr., MD [address] [place] [phone] PCP - General 08/10/05 documented as of this encounter
--- OUTSIDE RECORDS SUMMARY | 2025-06-26 06:46 | XMS_ITS | Encounter Summary ---
Author Organization [facility] Address [address] [place] [address] Care Team Providers Care Food Safety Manager Name Role Phone Rico Muñiz MD, Sharan Jaime Primary Care Provider Encounter Details Date Type Department Care Team (Latest Contact Info) Description 12/20/2001 Outpatient Historical [facility] Sharan Gómez Jr., MD [address] [place] [address] WHEEZING (Primary Dx); HEART VALVE REPLAC NEC; AFTERCARE PERSONAL PROPERTY ASSESSOR ANTICOAG USE Social History Tobacco Use Types Packs/Day Years Used Date Smoking Tobacco: Never Assessed Comments Unknown Sex and Gender Information Value Date Recorded Sex Assigned at Not on file Legal Sex Female 5:42 AM PICK UP WORKER Gender Identity Not on file Sexual Orientation Not on file documented as of this encounter Plan of Treatment Not on file documented as of this encounter Visit Diagnoses Diagnosis Wheezing- Primary Heart valve replaced by other means computer terminal operator (current) use of anticoagulants Long-term (current) use of anticoagulants documented in this encounter Care Teams Food Safety Manager Relationship Specialty Start Date End Date Sharan Gómez Jr., MD [address] [facility] [place] [address] PCP - General 08/10/05 documented as of this encounter
--- OUTSIDE RECORDS SUMMARY | 2025-06-26 06:46 | XMS_ITS | Encounter Summary ---
Author Organization [facility] Address [address] [place] [address] Care Team Providers Care Radiology Rn Name Role Phone Rico Muñiz MD, Sharan Jaime Primary Care Provider Encounter Details Date Type Department Care Team (Latest Contact Info) Description 06/20/1999 Outpatient Historical [facility] Int [facility] John [address] [place] [phone] Serge Arrington MD [address] [place] [address] Mitral valve disorder (Primary Dx); Unspecified essential hypertension; Other and unspecified hyperlipidemia; Hematuria Social History Tobacco Use Types Packs/Day Years Used Date Smoking Tobacco: Never Assessed Comments Unknown Sex and Gender Information Value Date Recorded Sex Assigned at Not on file Legal Sex Female 5:42 AM LENS BLOCKER Gender Identity Not on file Sexual Orientation Not on file documented as of this encounter Plan of Treatment Not on file documented as of this encounter Visit Diagnoses Diagnosis Mitral valve disorder- Primary Mitral valve disorders Unspecified essential hypertension Other and unspecified hyperlipidemia Hematuria documented in this encounter Care Teams Radiology Rn Relationship Specialty Start Date End Date Sharan Gómez Jr., MD [address] [place] [phone] PCP - General 08/10/05 documented as of this encounter
--- OUTSIDE RECORDS SUMMARY | 2025-06-26 06:46 | XMS_ITS | Encounter Summary ---
Author Organization [facility] Address [address] [place] [address] Care Team Providers Care Incinerator Plant Laborer Name Role Phone Rico Muñiz MD, Sharan Jaime Primary Care Provider Encounter Details Date Type Department Care Team (Latest Contact Info) Description 07/04/2005 Outpatient Historical [facility] Int Luis AFaisal Lopez [address] [place] [address] Serge Arrington MD [address] [place] [address] Mitral valve disorder (Primary Dx); HYPERTENSION NOS; ABN FIND-STOOL CONTENTS-OCC BLOOD; SCREENING MAL NEOP-CERVIX Social History Tobacco Use Types Packs/Day Years Used Date Smoking Tobacco: Never Assessed Comments Unknown Sex and Gender Information Value Date Recorded Sex Assigned at Not on file Legal Sex Female 5:42 AM BARREL LATHE OPERATOR INSIDE Gender Identity Not on file Sexual Orientation Not on file documented as of this encounter Plan of Treatment Not on file documented as of this encounter Visit Diagnoses Diagnosis Mitral valve disorder- Primary Mitral valve disorders Unspecified essential hypertension Nonspecific abnormal finding in stool contents Screening for malignant neoplasm of the cervix documented in this encounter Care Teams Incinerator Plant Laborer Relationship Specialty Start Date End Date Sharan Gómez Jr., MD [address] [place] [address] PCP - General 08/10/05 documented as of this encounter
--- OUTSIDE RECORDS SUMMARY | 2025-06-26 06:46 | XMS_ITS | Encounter Summary ---
Author Organization [facility] Address [address] [facility] Attn: [place] [address] Care Team Providers Care Consumer Sales Representative Name Role Phone Rico Muñiz MD, Sharan Jaime Primary Care Provider Encounter Details Date Type Department Care Team (Late st Contact Info) Description 12/26/1999 Outpatient Historical Sharan Gómez Jr., MD [address] [place] [address] Social History Tobacco Use Types Packs/Day Years Used Date Smoking Tobacco: Never Assessed Comments Unknown Sex and Gender Information Value Date Recorded Sex Assigned at Not on file Legal Sex Female 5:42 AM HVAC SERVICE MANAGER Gender Identity Not on file Sexual Orientation Not on file documented as of this encounter Plan of Treatment Not on file documented as of this encounter Visit Diagnoses Not on filedocumented in this encounter Care Teams Consumer Sales Representative Relationship Specialty Start Date End Date Sharan Gómez Jr., MD [address] [place] [address] PCP - General 08/10/05 documented as of this encounter
--- OUTSIDE RECORDS SUMMARY | 2025-06-26 06:46 | XMS_ITS | Encounter Summary ---
Author Organization [facility] Address [address] [place] [address] Care Team Providers Care Boiler Assistant Operator Name Role Phone Rico Muñiz MD, Sharan Jaime Primary Care Provider Encounter Details Date Type Department Care Team (Late st Contact Info) Description 06/21/2000 Outpatient Historical [facility] Serge Arrington MD [address] [facility] [address] [place] [address] Unspecified essential hypertension (Primary Dx); Mitral valve disorder; assisted (current) use of anticoagulants Social History Tobacco Use Types Packs/Day Years Used Date Smoking Tobacco: Never Assessed Comments Unknown Sex and Gender Information Value Date Recorded Sex Assigned at Not on file Legal Sex Female 5:42 AM CONCRETE SPREADER Gender Identity Not on file Sexual Orientation Not on file documented as of this encounter Plan of Treatment Not on file documented as of this encounter Visit Diagnoses Diagnosis Unspecified essential hypertension- Primary Mitral valve disorder Mitral valve disorders precipitator supervisor (current) use of anticoagulants Long-term (current) use of anticoagulants documented in this encounter Care Teams Boiler Assistant Operator Relationship Specialty Start Date End Date Sharan Gómez Jr., MD [address] [place] [address] PCP - General 08/10/05 documented as of this encounter
--- OUTSIDE RECORDS SUMMARY | 2025-06-26 06:46 | XMS_ITS | Encounter Summary ---
Author Organization [facility] Address [address] [place] [address] Care Team Providers Care Agency Recruiter Name Role Phone Rico Muñiz MD, Sharan Jaime Primary Care Provider Encounter Details Date Type Department Care Team (Latest Contact Info) Description 12/26/1999 Outpatient Historical [facility] Sharan Gómez Jr., MD [address] [place] [address] ASCVD (Primary Dx); Esophageal reflux; Unspecified essential hypertension; terminal gauger supervisor (current) use of anticoagulants Social History Tobacco Use Types Packs/Day Years Used Date Smoking Tobacco: Never Assessed Comments Unknown Sex and Gender Information Value Date Recorded Sex Assigned at Not on file Legal Sex Female 5:42 AM SALES ORDER COORDINATOR Gender Identity Not on file Sexual Orientation Not on file documented as of this encounter Plan of Treatment Not on file documented as of this encounter Visit Diagnoses Diagnosis ASCVD- Primary Unspecified cardiovascular disease Esophageal reflux Unspecified essential hypertension terminal gauger supervisor (current) use of anticoagulants Long-term (current) use of anticoagulants documented in this encounter Care Teams Agency Recruiter Relationship Specialty Start Date End Date Sharan Gómez Jr., MD [address] [place] [address] PCP - General 08/10/05 documented as of this encounter
--- OUTSIDE RECORDS SUMMARY | 2025-06-26 06:46 | XMS_ITS | Encounter Summary ---
Author Organization [facility] Address [address] [place] [address] Care Team Providers Care Arterial Embalmer Name Role Phone Rico Muñiz MD, Sharan Jaime Primary Care Provider Encounter Details Date Type Department Care Team (Latest Contact Info) Description 04/12/2001 Outpatient Historical [facility] Sharan Gómez Jr., MD [address] [place] [address] Osteoarthrosis, unspecified whether generalized or localized, unspecified site (Primary Dx); Heart valve replaced by other means; nursing home (current) use of anticoagulants Social History Tobacco Use Types Packs/Day Years Used Date Smoking Tobacco: Never Assessed Comments Unknown Sex and Gender Information Value Date Recorded Sex Assigned at Not on file Legal Sex Female 5:42 AM BUNDLING 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 Gender Identity Not on file Sexual Orientation Not on file documented as of this encounter Plan of Treatment Not on file documented as of this encounter Visit Diagnoses Diagnosis Osteoarthrosis, unspecified whether generalized or localized, unspecified site- Primary Heart valve replaced by other means nursing home (current) use of anticoagulants Long-term (current) use of anticoagulants documented in this encounter Care Teams Arterial Embalmer Relationship Specialty Start Date End Date Sharan Gómez Jr., MD [address] [place] [address] PCP - General 08/10/05 documented as of this encounter
--- OUTSIDE RECORDS SUMMARY | 2025-06-26 06:46 | XMS_ITS | Encounter Summary ---
Author Organization [facility] Address [address] [place] [address] Care Team Providers Care Graphic Arts Technician Name Role Phone Rico Muñiz MD, Sharan Jaime Primary Care Provider Encounter Details Date Type Department Care Team (Latest Contact Info) Description 05/16/2001 Outpatient Historical [facility] Sharan Gómez Jr., MD [address] [place] [address] Unspecified essential hypertension (Primary Dx); [facility] (current) use of anticoagulants Social History Tobacco Use Types Packs/Day Years Used Date Smoking Tobacco: Never Assessed Comments Unknown Sex and Gender Information Value Date Recorded Sex Assigned at Not on file Legal Sex Female 5:42 AM HOSPITAL LIAISON Gender Identity Not on file Sexual Orientation Not on file documented as of this encounter Plan of Treatment Not on file documented as of this encounter Visit Diagnoses Diagnosis Unspecified essential hypertension- Primary [facility] (current) use of anticoagulants Long-term (current) use of anticoagulants documented in this encounter Care Teams Graphic Arts Technician Relationship Specialty Start Date End Date Sharan Gómez Jr., MD [address] [place] [address] PCP - General 08/10/05 documented as of this encounter
--- OUTSIDE RECORDS SUMMARY | 2025-06-26 06:46 | XMS_ITS | Encounter Summary ---
Author Organization [facility] Address [address] [place] [address] Care Team Providers Care Tool And Die Designer Name Role Phone Rico Muñiz MD, Sharan Jaime Primary Care Provider Encounter Details Date Type Department Care Team (Latest Contact Info) Description 08/03/2000 Outpatient Historical [facility] Sharan Gómez Jr., MD [address] [place] [address] Pure hypercholesterolem (Primary Dx); Other and unspecified hyperlipidemia; Dietary surveil/patent counsel Social History Tobacco Use Types Packs/Day Years Used Date Smoking Tobacco: Never Assessed Comments Unknown Sex and Gender Information Value Date Recorded Sex Assigned at Not on file Legal Sex Female 5:42 AM SUPERINTENDENT RENTING MANAGING Gender Identity Not on file Sexual Orientation Not on file documented as of this encounter Plan of Treatment Not on file documented as of this encounter Visit Diagnoses Diagnosis Pure hypercholesterolem- Primary Pure hypercholesterolemia Other and unspecified hyperlipidemia Dietary surveil/patent counsel Dietary surveillance and counseling documented in this encounter Care Teams Tool And Die Designer Relationship Specialty Start Date End Date Sharan Gómez Jr., MD [address] [place] [address] PCP - General 08/10/05 documented as of this encounter
--- OUTSIDE RECORDS SUMMARY | 2025-06-26 06:46 | XMS_ITS | Encounter Summary ---
Author Organization [facility] Address [address] [place] [address] Care Team Providers Care Steward/Stewardess Third Name Role Phone Rico Muñiz MD, Sharan Jaime Primary Care Provider Encounter Details Date Type Department Care Team (Latest Contact Info) Description 08/16/2000 Outpatient Historical [facility] Sharan Gómez Jr., MD [address] [place] [address] Pure hypercholesterolem (Primary Dx); Unspecified essential hypertension; Encounter for long-term (current) use of other medications Social History Tobacco Use Types Packs/Day Years Used Date Smoking Tobacco: Never Assessed Comments Unknown Sex and Gender Information Value Date Recorded Sex Assigned at Not on file Legal Sex Female 5:42 AM SKIN FITTER Gender Identity Not on file Sexual Orientation Not on file documented as of this encounter Plan of Treatment Not on file documented as of this encounter Visit Diagnoses Diagnosis Pure hypercholesterolem- Primary Pure hypercholesterolemia Unspecified essential hypertension Encounter for long-term (current) use of other medications documented in this encounter Care Teams Steward/Stewardess Third Relationship Specialty Start Date End Date Sharan Gómez Jr., MD [address] [place] [address] PCP - General 08/10/05 documented as of this encounter
--- OUTSIDE RECORDS SUMMARY | 2025-06-26 06:46 | XMS_ITS | Encounter Summary ---
Author Organization [facility] Address [address] [place] [address] Care Team Providers Care Optical Sales Associate Name Role Phone Rico Muñiz MD, Sharan Jaime Primary Care Provider Encounter Details Date Type Department Care Team (Latest Contact Info) Description 08/10/2005 Outpatient Historical [facility] Endoscopy Rebeca [address] [place] [address] Bill Negron MD [address] [place] [address] INT HEMORRHOID W/O COMPL (Primary Dx) Social History Tobacco Use Types Packs/Day Years Used Date Smoking Tobacco: Never Assessed Comments Unknown Sex and Gender Information Value Date Recorded Sex Assigned at Not on file Legal Sex Female 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 GUIDE BASE WINDER Gender Identity Not on file Sexual Orientation [...] Primary documented in this encounter Care Teams Optical Sales Associate Relationship Specialty Start Date End Date Sharan Gómez Jr., MD [address] [place] [address] PCP - General 08/10/05 documented as of this encounter
--- OUTSIDE RECORDS SUMMARY | 2025-06-26 06:46 | XMS_ITS | Encounter Summary ---
Author Organization [facility] Address [address] Attn: [place] [address] Care Team Providers Care Strike Operations Officer Name Role Phone Rico Muñiz MD, Sharan Jaime Primary Care Provider Encounter Details Date Type Department Care Team (Late st Contact Info) Description 06/22/2000 Outpatient Historical Serge Arrington MD [address] [facility] [address] [place] [address] Social History Tobacco Use Types Packs/Day Years Used Date Smoking Tobacco: Never Assessed Comments Unknown Sex and Gender Information Value Date Recorded Sex Assigned at Not on file Legal Sex Female 5:42 AM MANAGEMENT AND BUDGET ANALYST Gender Identity Not on file Sexual Orientation Not on file documented as of this encounter Plan of Treatment Not on file documented as of this encounter Visit Diagnoses Not on filedocumented in this encounter Care Teams Strike Operations Officer Relationship Specialty Start Date End Date Sharan Gómez Jr., MD [address] [place] [address] PCP - General 08/10/05 documented as of this encounter
--- OUTSIDE RECORDS SUMMARY | 2025-06-26 06:46 | XMS_ITS | Encounter Summary ---
Author Organization [facility] Address [address] [facility] Attn: [place] [address] Care Team Providers Care Nutrition Worker Name Role Phone Rico Muñiz MD, Sharan Jaime Primary Care Provider Encounter Details Date Type Department Care Team (Late st Contact Info) Description 08/16/2000 Outpatient Historical Sharan Gómez Jr., MD [address] [place] [address] Social History Tobacco Use Types Packs/Day Years Used Date Smoking Tobacco: Never Assessed Comments Unknown Sex and Gender Information Value Date Recorded Sex Assigned at Not on file Legal Sex Female 5:42 AM SUSTAINABILITY DIRECTOR Gender Identity Not on file Sexual Orientation Not on file documented as of this encounter Plan of Treatment Not on file documented as of this encounter Visit Diagnoses Not on filedocumented in this encounter Care Teams Nutrition Worker Relationship Specialty Start Date End Date Sharan Gómez Jr., MD [address] [place] [address] PCP - General 08/10/05 documented as of this encounter
--- OUTSIDE RECORDS SUMMARY | 2025-06-26 06:46 | XMS_ITS | Encounter Summary ---
Author Organization [facility] Address [address] [place] [address] Care Team Providers Care Assessment Nurse Name Role Phone Rico Muñiz MD, Sharan Jaime Primary Care Provider Encounter Details Date Type Department Care Team (Late st Contact Info) Description 07/30/2000 Outpatient Historical [facility] Social History Tobacco Use Types Packs/Day Years Used Date Smoking Tobacco: Never Assessed Comments Unknown Sex and Gender Information Value Date Recorded Sex Assigned at Not on file Legal Sex Female 5:42 AM CIVIL ENGINEERING ASSISTANT Gender Identity Not on file Sexual Orientation Not on file documented as of this encounter Plan of Treatment Not on file documented as of this encounter Visit Diagnoses Not on filedocumented in this encounter Care Teams Assessment Nurse Relationship Specialty Start Date End Date Sharan Gómez Jr., MD [address] [place] [address] PCP - General 08/10/05 documented as of this encounter
--- OUTSIDE RECORDS SUMMARY | 2025-06-26 06:46 | XMS_ITS | Encounter Summary ---
Author Organization [facility] Address [address] [place] [address] Care Team Providers Care Dye Worker Name Role Phone Rico Muñiz MD, Sharan Jaime Primary Care Provider Encounter Details Date Type Department Care Team (Latest Contact Info) Description 09/05/2001 Outpatient Historical [facility] Sharan Gómez Jr., MD [address] [place] [address] OSTEOARTHROS NOS-UNSPEC (Primary Dx); OSTEOPOROSIS NOS Social History Tobacco Use Types Packs/Day Years Used Date Smoking Tobacco: Never Assessed Comments Unknown Sex and Gender Information Value Date Recorded Sex Assigned at Not on file Legal Sex Female 5:42 AM SUPERVISOR OF GUIDANCE AND TESTING Gender Identity Not on file Sexual Orientation Not on file documented as of this encounter Plan of Treatment Not on file documented as of this encounter Visit Diagnoses Diagnosis Osteoarthrosis, unspecified whether generalized or localized, unspecified site- Primary Osteoporosis, unspecified documented in this encounter Care Teams Dye Worker Relationship Specialty Start Date End Date Sharan Gómez Jr., MD [address] [place] [address] PCP - General 08/10/05 documented as of this encounter
--- OUTSIDE RECORDS SUMMARY | 2025-06-26 06:46 | XMS_ITS | Encounter Summary ---
Author Organization [facility] Address [address] [place] [address] Care Team Providers Care Warehouse Packaging Supervisor Name Role Phone Rico Muñiz MD, Sharan Jaime Primary Care Provider Encounter Details Date Type Department Care Team (Latest Contact Info) Description 10/26/1999 Outpatient Historical [facility] Sharan Gómez Jr., MD [address] [place] [address] Endocarditis, valve unspecified, unspecified cause (Primary Dx); Osteoporosis, unspecified Social History Tobacco Use Types Packs/Day Years Used Date Smoking Tobacco: Never Assessed Comments Unknown Sex and Gender Information Value Date Recorded Sex Assigned at Not on file Legal Sex Female 5:42 AM FULLERETTE Gender Identity Not on file Sexual Orientation Not on file documented as of this encounter Plan of Treatment Not on file documented as of this encounter Visit Diagnoses Diagnosis Endocarditis, valve unspecified, unspecified cause- Primary Osteoporosis, unspecified documented in this encounter Care Teams Warehouse Packaging Supervisor Relationship Specialty Start Date End Date Sharan Gómez Jr., MD [address] [place] [address] PCP - General 08/10/05 documented as of this encounter
--- OUTSIDE RECORDS SUMMARY | 2025-06-26 06:46 | XMS_ITS | Encounter Summary ---
Author Organization [facility] Address [address] [place] [address] Care Team Providers Care Residential Leasing Agent Name Role Phone Rico Muñiz MD, Sharan Jaime Primary Care Provider Encounter Details Date Type Department Care Team (Latest Contact Info) Description 06/20/1999 Outpatient Historical [facility] Echocardiography - [facility] [address] [place] [address] X358 Serge Arrington MD [address] [address] Painful respiration (Primary Dx); Precordial pain; Other dyspnea and respiratory abnormality Social History Tobacco Use Types Packs/Day Years Used Date Smoking Tobacco: Never Assessed Comments Unknown Sex and Gender Information Value Date Recorded Sex Assigned at Not on file 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
--- OUTSIDE RECORDS SUMMARY | 2025-06-26 06:46 | XMS_ITS | Encounter Summary ---
Author Organization [facility] Address [address] [place] [address] Care Team Providers Care Practical Ministries Professor Name Role Phone Rico Muñiz MD, Sharan Jaime Primary Care Provider Encounter Details Date Type Department Care Team (Latest Contact Info) Description 08/31/2000 Outpatient Historical [facility] Sharan Gómez Jr., MD [address] [place] [address] Pure hypercholesterolem (Primary Dx); Dietary surveil/certified credit counselor Social History Tobacco Use Types Packs/Day Years Used Date Smoking Tobacco: Never Assessed Comments Unknown Sex and Gender Information Value Date Recorded Sex Assigned at Not on file 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
[2025-06-26] MEDS: aminophylline 25 mg/mL SDV 20 mL IVP ×2 (08:45→08:51)
--- NOTE | 2025-06-26 09:27 | P.PN_ITS ---
<Statement entered by Dustin Worrell MD - 06/26/25 19:10> Patient was evaluated and cared for in conjunction with an advanced practice practitioner. I personally examined the patient and reviewed the chart and all pertinent data including imaging, telemetry, and laboratory results. I discussed the patient in detail with the advanced practice practitioner. Please see their note for complete H&P testing result and agreed upon plan of care for the patient. Denies any chest pain Stress test turned out to be positive INR is 2.5 GENERAL: Patient is alert, awake and oriented x3. HEART: Regular S1 and S2. No murmur, rub or gallop. LUNGS: Clear to auscultate bilaterally. CENTRAL NERVOUS SYSTEM: Grossly nonfocal. EXTREMITIES: Lower extremities with out edema bilaterally. Coronary artery disease Chest pain Abnormal stress test Atrial fibrillation on anticoagulation Hold warfarin once INR is less than 1.7 will proceed with left heart cath Patient will be n.p.o. overnight Subjective 2 Subjective: No chest pain overnight however she underwent stress test this morning and had chest pain during the test. She is feeling better now and chest pain-free. Vitals/I&O/Wt Last Vital Signs Temp 97.9 F 06/26/25 07:50 Pulse 86 06/26/25 08:56 Resp 17 06/26/25 07:50 BP 124/80 06/26/25 08:56 Pulse Ox 94 06/26/25 07:50 O2 Del Method Room Air 06/26/25 07:50 06/25/25 06/26/25 06/26/25 22:59 06:59 14:59 Intake Total 300 / 457.333 157.333 / 457.333 Balance 300 / 457.333 157.333 / 457.333 Weight last 48 hrs Weight 151 lb 11.2 oz Weight 152 lb Physical Exam 2 Const: COMMON NORMALS: no acute distress and patient oriented x3 GENERAL APPEARANCE: cooperative and comfortable ORIENTATION/CONSCIOUSNESS: Yes awake, Yes oriented to person, Yes oriented to place and Yes oriented to time Chest: COMMONS NORMALS: normal inspection of the chest and normal palpation of entire chest wall CHEST: Yes Symmetrical chest wall rise Resp: COMMON NORMALS: normal respiratory effort, No retractions, No use of accessory muscles and clear to auscultation bilaterally EFFORT & INSPECTION: Yes symmetric chest movement AUSCULTATION: clear to auscultation bilaterally Cardio: COMMON NORMALS: regular rate, S1 normal heart sound present, S2 normal heart sound present, No gallops present (Cardio), No clicks present (Cardio), No murmurs present (Cardio) and No rub (Cardio) RATE: regular rate RHYTHM: a bnormal rhythm irregularly irregular HEART SOUNDS: S1 normal heart sound present and S2 normal heart sound present PERIPHERAL PULSES: radial pulses present Extremity: COMMON NORMALS: no pedal edema Neuro: COMMON NORMALS: patient oriented x3 and moves all extremities S ENSORIUM/ORIENTATION: Yes oriented to person, Yes oriented to place and Yes oriented to time Data 06/26/25 03:57 06/26/25 03:57 A&P Assessment and plan 1. Mitral valve replaced: 2. Chronic atrial fibrillation: 3. Coronary artery disease: 4. Hyperlipidemia: 5. Hypertension: 6. Unstable angina: 7. CKD (chronic kidney disease) stage 2, GFR 60-89 ml/min: 8. Alzheimer disease: Plan: Will await results of stress test to determine further plan. For now continue heparin infusion, possible coronary angiogram tomorrow. She may eat. PDMP PDMP Reviewed: Not Reviewed Attestations 2 Medical Necessity Statement*: Unstable angina, ischemic workup Coding Level of Care Code Acute Code for [facility] Diagnoses Mitral valve replaced Z95.2 Chronic atrial fibrillation I48.20 Coronary artery disease I25.10 Hyperlipidemia E78.5 Hypertension I10 Unstable angina I20.0 CKD (chronic kidney disease) stage 2, GFR 60-89 ml/min N18.2 Alzheimer disease G30.9; F02.80
--- NOTE | 2025-06-26 09:47 | PC.CHAP ---
Pastoral Care Encounter/Spiritual Assessment Type of Contact [] Declined bench assembly inspector visit [] Patient/Family/Request visit [] Outpatient visit [] Follow-up visit [] Physician referral [] Code/Alert [] Routine visit [] Staff referral [] Actively dying [] Patient sleeping [] Family support [] [x] Out of room [] Palliative care [] [] Receiving care in room [] Pre-surgical visit [] Trauma [] Long length of stay [] ICU visit [] Other: Relational/Emotional Strength [] Patient feels connected with others/family/visitors/staff [] Distress [] Loneliness/isolation [] Abandonment Spirituality of Patient [] Person of Migdalia [] Attends Anabaptism of their [place] [] Believes in Prayer [] Reads Bible or Anglican materials [] There are Spiritual issues to be addressed Fire Pilot Interventions [] Prayer [] Active listening [] Non-anxious presence [] Spiritual/emotional support [] Crisis/trauma care [] Spiritual counseling [] Bereavement support [] Provided bereavement packet [] Provided Bible/devotional materials [] Provided toy/stuffed animal, coloring book to patient or family member [] Provided Communion [] Anointing/[place] [] Salvation [] Completed spiritual assessment [] Other: Impact on Illness or Injury [] Angry [] Fearful [] Anxious [] Often cries [] Exhaustion [] Unable to work [] Unable to attend baptist [] Unable to walk/stand [] Unable to read [] Unable to drive [] Unable to eat/drink [] Unable to sleep [] Unable to be with family [] Patient intubated [] Other: Summary Time spent with patient
--- NOTE | 2025-06-26 10:19 | NMCV_ITS ---
NM ankita perf SPECT r/s* [id number] Odilia Ulloa Age: 74 Gender: F : 1950 Exam Date: 06/26/2025 07:54 Ordering Phys: Coty Sibley Technologist: BRIAN Pretty Exam Location: [facility] Indications: cp STRESS TEST Please see separate stress test report in [facility] for full findings IMAGE PROTOCOL Rest/Stress 1 Lexiscan Day Radiopharmaceutical Dose (mCi) Administration Site Administered by Rest: Tc-99m 10.8 IV Jessie Walker, COMMERCIAL PRINT SALESMAN Sestamibi Stress:Tc-99m 32.8 IV Jessie Wolfgle, COMMERCIAL PRINT SALESMAN Sestamibi Rest: 26-Jun-2025 60 Discovery 630 Stress: 26-Jun-2025 30 Discovery 630 0.4mg Lexiscan. Supine position only as patient was unable to lay prone. SPECT RESULTS Technical Quality: Good Raw Data Analysis: Normal Image Corrections: No attenuation or motion correction applied Summed Stress Score: 2 Summed Rest Score: 1 Summed Difference Score: 1 PERFUSION FINDINGS There is a small to medium area of mild to moderate reduction of tracer counts in the apical inferolateral wall region which improves on the resting images compared to the stress images. These findings are consistent with inducible ischemia. FUNCTIONAL RESULTS (calculated via Gated SPECT) Stress Image LV EF (%): 61 Stress EDV (mL):71 TID: 1.13 Stress ESV (mL):28 FUNCTIONAL FINDINGS: There is normal left ventricular systolic function. IMPRESSIONS 1. Abnormal myocardial perfusion imaging test consistent with a small to medium sized area of mild to moderate ischemia in the inferolateral wall region. 2. Normal left ventricular systolic function, EF 61%. Hema Siu MD, FACC (Electronically Signed) Final Date: 26 June 2025 13:52 S
[2025-06-26 10:39] LABS: Troponin 5 6HR 11.44 ng/L (0-10)
[2025-06-26 10:40] LABS: Troponin 5 6HR Delta -0.56 ng/L (0-12)
--- NOTE | 2025-06-26 11:20 | P.PN_ITS ---
Subjective 2 Subjective: She is doing all right currently. She had transient chest pain during stress test. Vitals/I&O/Wt Last Vital Signs Temp 97.9 F 06/26/25 07:50 Pulse 86 06/26/25 08:56 Resp 17 06/26/25 07:50 BP 124/80 06/26/25 08:56 Pulse Ox 94 06/26/25 07:50 O2 Del Method Room Air 06/26/25 07:50 06/25/25 06/26/25 06/26/25 22:59 06:59 14:59 Intake Total 300 / 300 157.333 / 457.333 Balance 300 / 300 157.333 / 457.333 Weight last 48 hrs Weight 68.81 kg Weight 68.946 kg Physical Exam 2 Const: COMMON NORMALS: patient oriented x3 and alert GENERAL APPEARANCE: c ooperative ORIENTATION/CONSCIOUSNESS: Yes awake HENMT: COMMON NORMALS: oropharynx normal Neck/C-Spine: COMMON NORMALS: no JVD Resp: COMMON NORMALS: normal respiratory effort and clear to auscultation bilaterally AUSCULTATION: clear to auscultation bilaterally Cardio: COMMON NORMALS: no JVD, regular rhythm, S1 normal heart sound present, S2 normal heart sound present and No murmurs present (Cardio) RHYTHM: regular rhythm HEART SOUNDS: S1 normal heart sound present and S2 normal heart sound present GI: COMMON NORMALS: Normal to inspection, nondistended, normoactive bowel sounds present, Soft to palpation and non-tender PALPATION: Yes Soft to palpation Extremity: COMMON NORMALS: no joint enlargement and no pedal edema Neuro: COMMON NORMALS: patient oriented x3 and moves all extremities S ENSORIUM/ORIENTATION: Yes alert Skin: COMMON NORMALS: no rashes or lesions noted GENERAL SKIN EXAM: no rashes or lesions noted Data 06/26/25 03:57 06/26/25 03:57 A&P Assessment and plan 1. Unstable angina: Transient chest pain during stress test. Awaiting stress test results. Monitor on telemetry. Await further cardiology recommendations, consideration of further evaluation if needed including possible angiogram discussed. Reviewed vitals, CBC, INR, BMP, troponin series, lipid profile, EKG, cardiology note. Discussed with nursing, director case management. Continue heparin bridge off warfarin. Monitor for risk of bleeding. Monitor PTT. - Cont PPI she is doing all right currently she had transient chest pain during stress test. - Further consideration of coronary angiogram on Sunday if needed, with holding warfarin and bridging with heparin infusion. She is started on heparin drip for possible stable angina. Monitor for risk of bleeding. - Added aspirin and statin. - Continue metoprolol. - Reviewed lipid profile. Plan: Atrial fibrillation : Atrial fibrillation present on ECG in ED. - Monitor on telemetry due to risk of arrhythmia. Mechanical mitral valve on anticoagulation : Patient anticoagulated with warfarin for mechanical mitral valve; INR 2.64 in ED. - Reassess INR given risk of subtherapeutic INR and mitral valve thrombosis. - If coronary angiography is pursued, hold warfarin and bridge with heparin infusion. Hyperlipidemia : History of HLD; lipid profile to be assessed. - Reviewed lipid profile. - Start statin. - Chronic kidney disease (CKD) - Coronary artery disease (CAD) - Prior coronary angioplasty and stenting - History of mitral valve replacement (mechanical) - Congestive heart failure (CHF) - Atrial fibrillation (AF) - Hypertension (HTN) - Hyperlipidemia (HLD) - Iron deficiency anemia (HANNAH) - Alzheimer?s disease - Hyperthyroidism - Gastroesophageal reflux disease (GERD) - Other medical problems PDMP PDMP Reviewed: Not Reviewed Attestations 2 Medical Necessity Statement*: Continue admission for assessment management of possible unstable angina in a lady with recurrent chest pain, history of CAD and prior stenting, CHF, chronic anticoagulation on warfarin with mechanical mitral valve. Diagnoses Unstable angina I20.0
--- NOTE | 2025-06-26 12:26 | ECG_ITS ---
[facility] Date: 2025-06-26 Pat Name: Odilia Ulloa Department: Room: 111 Gender: Female Clinical Tech: : 1950 Requested By: Sharyn Callahan Order Number: [id number] Supriya MD: Souleymane Wood M.D. Measurements Intervals [place] Rate: 71 P: 0 OK: 0 QRS: 37 QRSD: 132 T: 35 QT: 424 QTc: 461 Interpretive Statements ATRIAL FIBRILLATION WITH ABERRANT CONDUCTION OR VENTRICULAR PREMATURE COMPLEXES INTRAVENTRICULAR CONDUCTION DELAY [130+ ms QRS DURATION] Compared to ECG 06/26/2025 05:08:26 Ventricular premature complex(es) now present Aberrant conduction of supraventricular beat(s) now present Intraventricular conduction delay now present Electronically Signed On 06-26-2025 22:51:04 CDT by Souleymane Wood M.D. [email or web address]
[2025-06-26 13:08] LABS: Partial Thromboplastin Time 64.5 SECONDS (23.9-36.7)
[2025-06-26 20:29] LABS: Partial Thromboplastin Time 54.3 SECONDS (23.9-36.7)
--- NOTE | 2025-06-26 22:03 | ECG_ITS ---
[facility] Test Date: 2025-06-26 Pat Name: Odilia Ulloa Department: Room: 111 Gender: Female Duplication Specialist: : 1950 Requested By: Sharyn Callahan Order Number: [id number] Supriya MD: Souleymane Wood M.D. Measurements Intervals [place] Rate: 71 P: 0 [place]: 0 QRS: 36 QRSD: 129 T: 28 QT: 432 QTc: 471 Interpretive Statements ATRIAL FIBRILLATION MODERATE INTRAVENTRICULAR CONDUCTION DELAY [110+ ms QRS DURATION] Compared to ECG 06/26/2025 12:26:20 Ventricular premature complex(es) no longer present Aberrant conduction of supraventricular beat(s) no longer present Electronically Signed On 06-26-2025 22:35:57 CDT by Souleymane Wood M.D. [email or web address]
[2025-06-27] VITALS (76 sets, daily range): BP systolic 86–155; BP diastolic 51–125; PULSE 63–93; RESP 14–44; TEMP 36.5–36.7; O2SAT 56–98
--- NOTE | 2025-06-27 02:43 | ECG_ITS ---
[employer] [facility] Test Date: 2025-06-27 Pat Name: Odilia Ulloa Department: Room: 111 Gender: Female Pig Machine Supervisor: : 1950 Requested By: Sharyn Callahan Order Number: [id number] Supriya MD: Hema Siu M.D. Measurements Intervals [place] Rate: 73 P: 0 [place]: 0 QRS: 40 QRSD: 127 T: 37 QT: 426 QTc: 470 Interpretive Statements ATRIAL FIBRILLATION MODERATE INTRAVENTRICULAR CONDUCTION DELAY [110+ ms QRS DURATION] ABNORMAL RHYTHM ECG Compared to ECG 06/26/2025 22:10:59 NO CHANGE Electronically Signed On 06-28-2025 23:06:17 CDT by Hema Siu M.D. [id number]
[2025-06-27] MEDS: nitroglycerin 1 gm/inch oint Pkt 1 INCH TOPICAL ×2 (02:50→08:38)
[2025-06-27 04:13] LABS: Hematocrit 32.5 % (36-47); Hemoglobin 10.90 g/dL (11.27-16.99); Mean Corpuscular HGB Conc 33.5 g/dL (30-55); Mean Corpuscular Hemoglobin 35.3 pg (27-33); Mean Corpuscular Volume 105.2 fl (85-98); Nucleated Red Blood Cells % 0 %; Platelet Count 189 10^3/cmm (157-399); Red Blood Count 3.09 10^6/uL (3.85-5.65); White Blood Count 5.17 10^3/uL (3.29-11.43)
[2025-06-27 04:46] LABS: Anion Gap 11.1 (5-19); Blood Urea Nitrogen 16 mg/dL (8-23); Calcium 9.9 mg/dL (8.5-10.5); Carbon Dioxide 26 mmol/L (22-29); Chloride 107 mmol/L (98-107); Creatinine Clr Calc Pharmacy 55.2347; Glucose 88 mg/dL (65-115); Osmolality Calculated 291 mOsm/kg (285-295); Partial Thromboplastin Time 75.1 SECONDS (23.9-36.7); Potassium 4.1 mmol/L (3.5-5.1); Sodium 140 mmol/L (136-145)
[2025-06-27 05:57] LABS: INR 1.11 (0.8-1.2); Prothrombin Time 15.10 SECONDS (12.1-14.9)
[2025-06-27 11:04] LABS: Partial Thromboplastin Time 57.1 SECONDS (23.9-36.7)
[2025-06-27] MEDS: heparin drip 25,000 UNIT/500 ML PREMIX 10 UNIT IV (11:27)
--- NOTE | 2025-06-27 12:51 | PC.CHAP ---
Pastoral Care Encounter/Spiritual Assessment Type of Contact [] Declined deputy district customs director visit [] Patient/Family/Request visit [] Outpatient visit [] Follow-up visit [] Physician referral [] Code/Alert [x] Routine visit [] Staff referral [] Actively dying [] Patient sleeping [] Family support [] [] Out of room [] Palliative care [] [] Receiving care in room [] Pre-surgical visit [] Trauma [] Long length of stay [] ICU visit [] Other: Relational/Emotional Strength [x] Patient feels connected with others/family/visitors/staff [] Distress [] Loneliness/isolation [] Abandonment Spirituality of Patient [x] Person of [place] [] Attends Adventism of their [place] [] Believes in Prayer [] Reads Bible or Yazidism materials [] There are Spiritual issues to be addressed Densitometrist Interventions [x] Prayer [] Active listening [] Non-anxious presence [] Spiritual/emotional support [] Crisis/trauma care [] Spiritual counseling [] Bereavement support [] Provided bereavement packet [] Provided Bible/devotional materials [] Provided toy/stuffed animal, coloring book to patient or family member [] Provided Communion [] Anointing/[place] [] Salvation [] Completed spiritual assessment [] Other: Impact on Illness or Injury [] Angry [] Fearful [] Anxious [] Often cries [] Exhaustion [] Unable to work [] Unable to attend temple [] Unable to walk/stand [] Unable to read [] Unable to drive [] Unable to eat/drink [] Unable to sleep [] Unable to be with family [] Patient intubated [] Other: Summary Time spent with patient
--- NOTE | 2025-06-27 12:53 | PC.CHAP ---
Pastoral Care Encounter/Spiritual Assessment Type of Contact [] Declined commercial field inspector visit [] Patient/Family/Request visit [] Outpatient visit [] Follow-up visit [] Physician referral [] Code/Alert [x] Routine visit [] Staff referral [] Actively dying [] Patient sleeping [] Family support [] [] Out of room [] Palliative care [] [] Receiving care in room [] Pre-surgical visit [] Trauma [] Long length of stay [] ICU visit [] Other: Relational/Emotional Strength [x] Patient feels connected with others/family/visitors/staff [] Distress [] Loneliness/isolation [] Abandonment Spirituality of Patient [x] Person of [place] [] Attends Shinto of their [place] [] Believes in Prayer [] Reads Bible or Worship materials [] There are Spiritual issues to be addressed Conciliation Court Judge Interventions [x] Prayer [] Active listening [] Non-anxious presence [] Spiritual/emotional support [] Crisis/trauma care [] Spiritual counseling [] Bereavement support [] Provided bereavement packet [] Provided Bible/devotional materials [] Provided toy/stuffed animal, coloring book to patient or family member [] Provided Communion [] Anointing/[place] [] Salvation [] Completed spiritual assessment [] Other: Impact on Illness or Injury [] Angry [] Fearful [] Anxious [] Often cries [] Exhaustion [] Unable to work [] Unable to attend moravian [] Unable to walk/stand [] Unable to read [] Unable to drive [] Unable to eat/drink [] Unable to sleep [] Unable to be with family [] Patient intubated [] Other: Summary Time spent with patient
--- NOTE | 2025-06-27 13:24 | PC.NURSE ---
Nitro patch removed per Dr. Worrell verbal order.
--- NOTE | 2025-06-27 15:28 | W.PM.OPSUD ---
Surgery/Procedure H&P Update DATE OF PROCEDURE: June 27, 2025 DATE H&P PERFORMED: 06/25/25 H&P UPDATE INFORMATION: I have reviewed H&P completed within last 30 days, I have examined patient prior to procedure and No changes to prior documentation PREOP DIAGNOSIS: Abnormal stress test, chest pain, history of coronary artery disease PRIMARY INDICATION FOR PROCEDURE: Chronic atrial fibrillation Chest pain Abnormal stress test Mechanical mitral valve PATIENT REASSESSED PRIOR TO SEDATION, WITH NO CHANGE NOTED: Yes PHYSICAL EXAM: alert, oriented x 3, clear to auscultation bilaterally and regular rate & rhythm AIRWAY EVAL/ANESTHESIA PLAN: normal airway, ASA II, Risks, benefits & alternatives of sedation and/or procedure discussed and Patient agrees to continue as planned ADDITIONAL INFORMATION: INR today is 1.1 Patient has been explained all risk-benefit and alternative for the procedure. She understand 2% risk of stroke major bleed. She understand 5% risk of minor bleeding bruising infection hematoma contrast induced nephropathy urgent emergent vascular coronary artery bypass surgery. She agrees to it and would like to proceed with it.
--- NOTE | 2025-06-27 15:33 | PC.NURSE ---
Patient in care of computer lab aide team at this time.
--- NOTE | 2025-06-27 16:05 | P.PN_ITS ---
Subjective 2 Subjective: The patient was seen in the morning and did not report any chest pain He was sleeping comfortably.And on heparin infusion without any complications no overnight issues or concerns Vitals/I&O/Wt Last Vital Signs Temp 98.1 F 06/27/25 07:42 Pulse 77 06/27/25 12:00 Resp 20 H 06/27/25 12:00 BP 128/100 06/27/25 12:00 Pulse Ox 95 06/27/25 12:00 O2 Del Method Room Air 06/27/25 03:32 06/27/25 06/27/25 06/27/25 06:59 14:59 22:59 Intake Total 79.933 / 593.766 93.167 / 93.167 44.667 / 137.834 Balance 79.933 / 593.766 93.167 / 93.167 44.667 / 137.834 Weight last 48 hrs Weight 68.81 kg Physical Exam 2 Narrative: General: Alert oriented x3, patient seen lying without distress HEENT: Normocephalic, atraumatic, EOMI, breathing at room air Cardio: Regular rate rhythm, normal S1-S2, no murmurs rubs gallops, JVD normal Respiratory: Good bilateral air entry, no wheezes no rhonchi appreciated GI: Abdomen soft, nontender, nondistended, normoactive bowel sounds present all 4 quadrants, Neuro: Cranial nerves II to XII intact, strength 5/5, sensation 5/5, no gross neurological deficit Behavior: Appropriate and cooperative Extremities: Pulses 2+, no edema, no cyanosis Skin: Visible skin intact, no rashes Data 06/27/25 03:45 06/27/25 03:45 A&P Assessment and plan 1. Unstable angina: 2. Hypertension: 3. Coronary artery disease: 4. Tension headache: 5. Atherosclerosis of coronary artery of [place] heart without angina pectoris: 6. Ischemic congestive cardiomyopathy: 7. Hypothyroid: 8. Anemia: 9. CKD (chronic kidney disease) stage 2, GFR 60-89 ml/min: Plan: Abnormal stress test On heparin infusion Patient underwent cath today Follow-up with the cardiology for further management plan Continue on aspirin and atorvastatin Metoprolol 100 mg twice daily Spironolactone 25 mg Myocardial perfusion scan was abnormal and EF showed 61% with normal ventricular systolic function mitral valve on anticoagulation: INR better today and was taken to cath Continue on heparin bridge post cath since the patient is off warfarin and later to bridge accordingly with monitoring of INR in the range of 2-3 for mechanical mitral valve Sinew heparin as per protocol Hyperlipidemia : Atorvastatin 40 mg to continue Hypothyroidism: Continue levothyroxine 75 mcg home dose daily Atrial fibrillation: Heart rate controlled Metoprolol 100 mg twice daily to continue and to monitor accordingly Telemetry monitoring Chronic kidney disease: Monitor renal parameters and intake and output Electrolytes monitoring and correction accordingly Hypertension: Controlled Patient is on metoprolol twice daily for atrial fibrillation and could have also affect the blood pressure Monitor blood pressure and further management accordingly Iron deficiency anemia: Continue to monitor hemoglobin Alzheimer's disease: Continue home dose memantine 5 mg twice daily GERD: PPI daily VTE: Heparin infusion held due to to bridge with warfarin for mitral mechanical valve anticoagulation Diet: Cardiac PDMP PDMP Reviewed: Not Reviewed Attestations 2 Medical Necessity Statement*: Patient will stay more than 2 midnights for the management of unstable angina with positive stress test underwent coronary angiogram and further optimizing her care before discharge Time Spent in Patient Care: 16 - 35 minutes (>than 50% of time sp ent in counselling and/or direct pt care on unit) . Other Attestations: Patient condition has been discussed at length with the patient/family, I have independently reviewed the chart labs imaging and diagnostics and EKG. the goals of care and code status with the patient/family/NOK/legal entry level account representative, and documented accordingly. The patient/family has been informed about the current condition and further plan of care. Agreed with the plan of care and understood without any language barrier. This documentation was created by [employer] manager software development software. Every effort was made to ensure accuracy of manager software development. Any obvious errors or omissions should be clarified with the author of the document. Coding Level of Care Code 20993 Diagnoses Unstable angina I20.0 Hypertension I10 Coronary artery disease I25.10 Tension headache G44.209 Atherosclerosis of coronary artery of [place] heart without angina pectoris I25.10 Ischemic congestive cardiomyopathy I25.5; I42.0 Hypothyroid E03.9 Anemia D64.9 CKD (chronic kidney disease) stage 2, GFR 60-89 ml/min N18.2
--- NOTE | 2025-06-27 16:31 | P.PN_ITS ---
Subjective 2 Subjective: Patient underwent left heart catheterization today did not show any significant new stenoses requiring intervention. She has small vessel disease which will be managed with medications Vitals/I&O/Wt Last Vital Signs Temp 98.1 F 06/27/25 07:42 Pulse 77 06/27/25 12:00 Resp 20 H 06/27/25 12:00 BP 128/100 06/27/25 12:00 Pulse Ox 95 06/27/25 12:00 O2 Del Method Room Air 06/27/25 03:32 06/27/25 06/27/25 06/27/25 06:59 14:59 22:59 Intake Total 79.933 / 593.766 93.167 / 93.167 44.667 / 137.834 Balance 79.933 / 593.766 93.167 / 93.167 44.667 / 137.834 Weight last 48 hrs Weight 151 lb 11.2 oz Physical Exam 2 Const: COMMON NORMALS: alert Resp: COMMON NORMALS: clear to auscultation bilaterally AUSCULTATION: clear to auscultation bilaterally Cardio: OTHER: GENERAL: Patient is alert, awake and oriented x3. HEART: Regular S1 and S2. No murmur, rub or gallop. LUNGS: Clear to auscultate bilaterally. CENTRAL NERVOUS SYSTEM: Grossly nonfocal. EXTREMITIES: Lower extremities with out edema bilaterally. Neuro: SENSORIUM/ORIENTATION: Yes alert Data 06/27/25 03:45 06/27/25 03:45 A&P Assessment and plan 1. Mitral valve replaced: 2. Chronic atrial fibrillation: 3. Coronary artery disease involving [place] coronary artery of [place] heart without angina pectoris: 4. Mixed hyperlipidemia: 5. Primary hypertension: 6. Unstable angina: 7. CKD (chronic kidney disease) stage 2, GFR 60-89 ml/min: 8. Alzheimer disease: Plan: Denies any complaint Patient underwent left heart catheterization which showed no new lesion or stenosis, she has known to be chronically 80 to 90% stenotic proximal RCA which is a nondominant vessel and has not changed since 2012 Left main has no significant stenosis LAD has luminal irregularity without significant stenosis Left circumflex has no significant stenosis Obtuse marginal 1 and 2 has mild to moderate proximal stenosis which does not appear to be significant Once TR band is off, will continue IV heparin without bolus Load with warfarin tonight 7.5 mg and tomorrow Check INR on Sunday morning If above 2.5 may can be discharged home Add isosorbide mononitrate 30 mg once a day PDMP PDMP Reviewed: Not Reviewed Attestations 2 Medical Necessity Statement*: Patient require continued hospitalization for above defined care Coding Level of Care Code Acute Code for Chg Fwd Diagnoses Mitral valve replaced Z95.2 Chronic atrial fibrillation I48.20 Coronary artery disease involving [place] coronary artery of [place] heart without angina pectoris I25.10 Coronary Disease-Associated Artery/Lesion type: [place] artery [place] vs. transplanted heart: [place] heart Associated angina: without angina Mixed hyperlipidemia E78.2 Hyperlipidemia type: mixed hyperlipidemia Primary hypertension I10 Hypertension type: primary hypertension Unstable angina I20.0 CKD (chronic kidney disease) stage 2, GFR 60-89 ml/min N18.2 Alzheimer disease G30.9; F02.80
--- NOTE | 2025-06-27 16:35 | P.PCN_ITS ---
Procedure Note: Pre-procedure diagnosis: Abnormal stress test Post- procedure diagnosis: same Procedure: Left heart catheter Patient underwent left heart catheterization which showed no new lesion or stenosis, she has known to be chronically 80 to 90% stenotic proximal RCA which is a nondominant vessel and has not changed since 2012 Left main has no significant stenosis LAD has luminal irregularity without significant stenosis Left circumflex has no significant stenosis Obtuse marginal 1 and 2 has mild to moderate proximal stenosis which does not appear to be significant Plan: Maximal medical manage Bridged with heparin and warfarin as defined in progress note Full note to be dictated Continue IV fluid 100 mL/hr for at least 500 mL Coding Level of Care Code Acute Code for Chg Fwd
--- NOTE | 2025-06-27 16:45 | PC.NURSE ---
Per Dr. Worrell, restart heparin drip after TR band removal.
[2025-06-27 17:51] LABS: INR 1.59 (0.8-1.2); Prothrombin Time 20.00 SECONDS (12.1-14.9)
[2025-06-27 18:02] LABS: Ferritin 197 ng/mL (15-150); Iron 104 ug/dL (37-145); Total Iron Binding Capacity 249 mcg/dl; Unsaturated Iron Binding 145 ug/dL (112-347)
[2025-06-27 18:09] LABS: Partial Thromboplastin Time > 250.0 SECONDS (23.9-36.7)
[2025-06-27 18:14] LABS: Vitamin B12 1683 pg/mL (232-1245)
--- NOTE | 2025-06-27 18:18 | PC.NURSE ---
Critical lab result PTT greater than 250, Dr Cole notified via telephone and orders received to continue holding heparin drip, and to notify pharmacy. Pharmacy has been notified and pharmacy is aware patient is post cath.
--- NOTE | 2025-06-27 23:04 | PC.NURSE ---
TR off 2304 wrist wrapped with coban and gauze. Site has no hematoma or oozing. Educated patient on what signs to report and discussed care of site. Discussed earlier with Dr. Worrell about the heparin gtt around 2150. Received orders to get a ptt after TR band is taken off and retart heparin gtt at previous rate if ptt is less than 70.
[2025-06-27 23:56] LABS: Partial Thromboplastin Time 33.3 SECONDS (23.9-36.7)
[2025-06-28] VITALS (10 sets, daily range): BP systolic 92–124; BP diastolic 60–87; PULSE 67–87; RESP 17–25; TEMP 36.5–37; O2SAT 91–96
[2025-06-28] MEDS: polyethylene glycol 3350 Pkt 17 gm PO (05:11)
[2025-06-28 06:38] LABS: Hematocrit 32.7 % (36-47); Hemoglobin 10.50 g/dL (11.27-16.99); Mean Corpuscular HGB Conc 32.1 g/dL (30-55); Mean Corpuscular Hemoglobin 34.7 pg (27-33); Mean Corpuscular Volume 107.9 fl (85-98); Nucleated Red Blood Cells % 0 %; Platelet Count 209 10^3/cmm (157-399); Red Blood Count 3.03 10^6/uL (3.85-5.65); White Blood Count 4.85 10^3/uL (3.29-11.43)
[2025-06-28 06:50] LABS: Partial Thromboplastin Time 52.8 SECONDS (23.9-36.7)
[2025-06-28 06:53] LABS: Alanine Aminotransferase 9 U/L (0-33); Albumin Level 3.7 g/dL (3.5-5.2); Alkaline Phosphatase 80 U/L (35-105); Anion Gap 15.2 (5-19); Aspartate Amino Transferase 15 U/L (0-32); Blood Urea Nitrogen 12 mg/dL (8-23); Calcium 9.7 mg/dL (8.5-10.5); Carbon Dioxide 22 mmol/L (22-29); Chloride 107 mmol/L (98-107); Creatinine Clr Calc Pharmacy 55.2347; Globulin 2.7 g/dL (1.3-4.6); Glucose 89 mg/dL (65-115); Osmolality Calculated 289 mOsm/kg (285-295); Potassium 4.2 mmol/L (3.5-5.1); Sodium 140 mmol/L (136-145); Total Protein 6.4 g/dL (6.6-8.7)
[2025-06-28 06:57] LABS: INR 1.37 (0.8-1.2); Prothrombin Time 17.70 SECONDS (12.1-14.9)
--- NOTE | 2025-06-28 11:57 | P.PN_ITS ---
Subjective 2 Subjective: Denies any complaint no significant obstructive disease noted on the left heart cath, patent previously placed stent Denies any chest pain Continue medical management Vitals/I&O/Wt Last Vital Signs Temp 98.6 F 06/28/25 07:45 Pulse 67 06/28/25 07:45 Resp 18 06/28/25 07:45 BP 115/87 06/28/25 07:45 Pulse Ox 91 06/28/25 07:45 O2 Del Method Room Air 06/28/25 03:53 06/27/25 06/28/25 06/28/25 22:59 06:59 14:59 Intake Total 298.667 / 391.834 823.333 / 1215.167 550.833 / 550.833 Balance 298.667 / 391.834 823.333 / 1215.167 550.833 / 550.833 Physical Exam 2 Const: COMMON NORMALS: alert Resp: COMMON NORMALS: clear to auscultation bilaterally AUSCULTATION: clear to auscultation bilaterally Cardio: OTHER: GENERAL: Patient is alert, awake and oriented x3. HEART: Regular S1 and S2. No murmur, rub or gallop. LUNGS: Clear to auscultate bilaterally. CENTRAL NERVOUS SYSTEM: Grossly nonfocal. EXTREMITIES: Lower extremities with out edema bilaterally. Neuro: SENSORIUM/ORIENTATION: Yes alert Data 06/28/25 06:26 06/28/25 06:26 A&P Assessment and plan 1. Mitral valve replaced: 2. Chronic atrial fibrillation: 3. Coronary artery disease involving [place] coronary artery of [place] heart without angina pectoris: 4. Mixed hyperlipidemia: 5. Primary hypertension: 6. Unstable angina: 7. CKD (chronic kidney disease) stage 2, GFR 60-89 ml/min: 8. Alzheimer disease: Plan: Denies any complaint Patient underwent left heart catheterization which showed no new lesion or stenosis, she has known to be chronically 80 to 90% stenotic proximal RCA which is a nondominant vessel and has not changed since 2012 Left main has no significant stenosis LAD has luminal irregularity without significant stenosis Left circumflex has no significant stenosis Obtuse marginal 1 and 2 has mild to moderate proximal stenosis which does not appear to be significant On today's visit dated 06/28/2020 Switch patient to Lovenox Continue warfarin 7.5 mg tonight once INR above 2.0 patient can be discharged on home medicine for mitral valve mechanical prophylaxis Possible discharge hopefully over next couple of days PDMP PDMP Reviewed: Not Reviewed Attestations 2 Medical Necessity Statement*: patient require continuation hospitalization for above defined care Coding Level of Care Code Acute Code for Chg Fwd Diagnoses Mitral valve replaced Z95.2 Chronic atrial fibrillation I48.20 Coronary artery disease involving [place] coronary artery of [place] heart without angina pectoris I25.10 Coronary Disease-Associated Artery/Lesion type: [place] artery [place] vs. transplanted heart: [place] heart Associated angina: without angina Mixed hyperlipidemia E78.2 Hyperlipidemia type: mixed hyperlipidemia Primary hypertension I10 Hypertension type: primary hypertension Unstable angina I20.0 CKD (chronic kidney disease) stage 2, GFR 60-89 ml/min N18.2 Alzheimer disease G30.9; F02.80
[2025-06-28 12:19] LABS: Partial Thromboplastin Time 63.0 SECONDS (23.9-36.7)
--- NOTE | 2025-06-28 12:55 | P.PN_ITS ---
Subjective 2 Subjective: the patient was seen in the morning and no chest pain or any complain reported patient on heparin and bridged with warfarin, to discontinue the heparin and continue with enoxaparin bid then warfarin to continue Repeat cath and no significant obstructive disease noted on the left heart cath, patent previously placed stent Vitals/I&O/Wt Last Vital Signs Temp 98.6 F 06/28/25 07:45 Pulse 67 06/28/25 07:45 Resp 18 06/28/25 07:45 BP 115/87 06/28/25 07:45 Pulse Ox 91 06/28/25 07:45 O2 Del Method Room Air 06/28/25 03:53 06/27/25 06/28/25 06/28/25 22:59 06:59 14:59 Intake Total 298.667 / 391.834 823.333 / 1215.167 846.016 / 846.016 Balance 298.667 / 391.834 823.333 / 1215.167 846.016 / 846.016 Physical Exam 2 Narrative: General: Alert oriented x3, patient seen lying without distress HEENT: Normocephalic, atraumatic, EOMI, breathing at room air Cardio: Regular rate rhythm, normal S1-S2, no murmurs rubs gallops, JVD normal Respiratory: Good bilateral air entry, no wheezes no rhonchi appreciated GI: Abdomen soft, nontender, nondistended, normoactive bowel sounds present all 4 quadrants, Neuro: Cranial nerves II to XII intact, strength 5/5, sensation 5/5, no gross neurological deficit Behavior: Appropriate and cooperative Extremities: Pulses 2+, no edema, no cyanosis Skin: Visible skin intact, no rashes Data 06/28/25 06:26 06/28/25 06:26 A&P Assessment and plan 1. Unstable angina: 2. Primary hypertension: 3. Coronary artery disease involving [place] coronary artery of [place] heart without angina pectoris: 4. Tension headache: 5. Atherosclerosis of [place] coronary artery of [place] heart without angina pectoris: 6. Ischemic congestive cardiomyopathy: 7. Hypothyroid: 8. Anemia: 9. CKD (chronic kidney disease) stage 2, GFR 60-89 ml/min: Plan: Abnormal stress test and s/p cath On heparin infusion and to discontinue it, to continue enoxaparin bid Patient underwent cath and no significant lesion found Continue on aspirin and atorvastatin Metoprolol 100 mg twice daily Spironolactone 25 mg Myocardial perfusion scan reported EF showed 61% with normal ventricular systolic function mitral valve on anticoagulation: INR to follow enoxaprin bridge with warfarin to target INR 2.5-3.5 Hyperlipidemia : Atorvastatin 40 mg to continue Hypothyroidism: Continue levothyroxine 75 mcg home dose daily Atrial fibrillation: Heart rate controlled Metoprolol 100 mg twice daily to continue and to monitor accordingly Telemetry monitoring Chronic kidney disease: Monitor renal parameters and intake and output Electrolytes monitoring and correction accordingly Hypertension: Controlled Patient is on metoprolol twice daily for atrial fibrillation and could have also affect the blood pressure Monitor blood pressure and further management accordingly Iron deficiency anemia: Continue to monitor hemoglobin Alzheimer's disease: Continue home dose memantine 5 mg twice daily GERD: PPI daily VTE: Heparin infusion held due to to bridge with warfarin for mitral mechanical valve anticoagulation Diet: Cardiac PDMP PDMP Reviewed: Not Reviewed Attestations 2 Medical Necessity Statement*: Patient will stay more than 2 midnights for the management of mechanical mitral valve anticoagulation with targetted INR range Time Spent in Patient Care: 16 - 35 minutes (>than 50% of time sp ent in counselling and/or direct pt care on unit) . Other Attestations: Patient condition has been discussed at length with the patient/family, I have independently reviewed the chart labs imaging and diagnostics and EKG. the goals of care and code status with the patient/family/NOK/legal utility sales representative, and documented accordingly. The patient/family has been informed about the current condition and further plan of care. Agreed with the plan of care and understood without any language barrier. This documentation was created by [employer] bacteriologist medical software. Every effort was made to ensure accuracy of bacteriologist medical. Any obvious errors or omissions should be clarified with the author of the document. Coding Level of Care Code 89649 Diagnoses Unstable angina I20.0 Primary hypertension I10 Hypertension type: primary hypertension Coronary artery disease involving [place] coronary artery of [place] heart without angina pectoris I25.10 Coronary Disease-Associated Artery/Lesion type: [place] artery [place] vs. transplanted heart: [place] heart Associated angina: without angina Tension headache G44.209 Atherosclerosis of [place] coronary artery of [place] heart without angina pectoris I25.10 Coronary Disease-Associated Artery/Lesion type: [place] artery Ischemic congestive cardiomyopathy I25.5; I42.0 Hypothyroid E03.9 Anemia D64.9 CKD (chronic kidney disease) stage 2, GFR 60-89 ml/min N18.2
--- NOTE | 2025-06-28 20:46 | ECG_ITS ---
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 Measurements Intervals [place] Rate: 71 P: 0 [place]: 0 QRS: 24 QRSD: 134 T: 1 QT: 417 QTc: 456 Interpretive Statements ATRIAL FIBRILLATION INTRAVENTRICULAR CONDUCTION DELAY [130+ ms QRS DURATION] Compared to ECG 06/27/2025 02:46:00 NO SIGNIFICANT CHANGE Electronically Signed On 06-28-2025 23:16:39 CDT by Hema Siu M.D. [email or web address] [id number]
[2025-06-28] MEDS: nitroglycerin 1 gm/inch oint Pkt 1 INCH TOPICAL (21:04)
[2025-06-28] MEDS: alum-mag-hydroxide-sime 30 mL UDC PO (21:21)
[2025-06-28] MEDS: fentaNYL 50 mcg/mL INJ 2mL 25 MCG IVP (22:46)
--- NOTE | 2025-06-28 22:55 | PC.NURSE ---
Around 2100 the patient started complaining of SOB and chest achiness /. Per patient she has been having on and off chest pain but then says her pain started at [id number]. BP 123/68 HR 85 EKG obtained. Patient given scheduled nitro patch and maalox. Notified Dr. Levy regarding the situation. Dr. Levy at nurses station to see EKG and received orders to let Dr. Worrell know. Dr. Worrell notified of patient complaints and received orders to give 25 mcg of fentanyl once due to patient allergy to morphine.
[2025-06-29] VITALS: BP 105/62; PULSE 81; RESP 17; TEMP 36.7; O2SAT 92
--- NOTE | 2025-06-29 00:14 | PC.NURSE ---
Patient complaining of on and off chest pain that goes to 6 or 7/10 then down to around a 4. Patient does not endorse any activities that bring on the chest pain. Notified Dr. Worrell discussing EKG, vital signs, and previous cath findings. Received orders to give 0.25 of xanax once.
[2025-06-29 03:58] VITALS: BP 136/70; PULSE 75; RESP 12; TEMP 36.4; O2SAT 94
[2025-06-29 04:58] LABS: Hematocrit 32.8 % (36-47); Hemoglobin 10.70 g/dL (11.27-16.99); Mean Corpuscular HGB Conc 32.6 g/dL (30-55); Mean Corpuscular Hemoglobin 34.0 pg (27-33); Mean Corpuscular Volume 104.1 fl (85-98); Nucleated Red Blood Cells % 0 %; Platelet Count 199 10^3/cmm (157-399); Red Blood Count 3.15 10^6/uL (3.85-5.65); White Blood Count 5.45 10^3/uL (3.29-11.43)
[2025-06-29 05:13] LABS: INR 2.22 (0.8-1.2); Prothrombin Time 25.90 SECONDS (12.1-14.9)
[2025-06-29 05:23] LABS: Alanine Aminotransferase 10 U/L (0-33); Albumin Level 3.8 g/dL (3.5-5.2); Alkaline Phosphatase 87 U/L (35-105); Anion Gap 13.0 (5-19); Aspartate Amino Transferase 17 U/L (0-32); Blood Urea Nitrogen 14 mg/dL (8-23); Calcium 10.2 mg/dL (8.5-10.5); Carbon Dioxide 27 mmol/L (22-29); Chloride 106 mmol/L (98-107); Creatinine Clr Calc Pharmacy 49.0975; Globulin 2.8 g/dL (1.3-4.6); Glucose 81 mg/dL (65-115); Osmolality Calculated 294 mOsm/kg (285-295); Potassium 4.0 mmol/L (3.5-5.1); Sodium 142 mmol/L (136-145); Total Protein 6.6 g/dL (6.6-8.7)
[2025-06-29 05:30] LABS: Magnesium 2.0 mg/dL (1.7-2.3); Thyroid Stimulating Hormone 3.21 uIU/mL (0.27-4.20)
[2025-06-29] MEDS: polyethylene glycol 3350 Pkt 17 gm PO (06:29)
[2025-06-29 08:00] VITALS: BP 111/85; PULSE 96; RESP 20; TEMP 36.2; O2SAT 94
--- NOTE | 2025-06-29 09:31 | P.DS_ITS ---
Discharge Providers Date of Admission: 06/28/25 09:14 Date of Discharge: June 29, 2025 Attending Provider at Admission: Sam Maldonado Attending Provider at Discharge: Andre Choi MD Primary Care Provider: Danny Marmolejo MD Diagnoses at Discharge Discharge Diagnosis 1. Unstable angina: 2. Primary hypertension: 3. Coronary artery disease involving [place] coronary artery of [place] heart without angina pectoris: 4. Tension headache: 5. Atherosclerosis of [place] coronary artery of [place] heart without angina pectoris: 6. Ischemic congestive cardiomyopathy: 7. Hypothyroid: 8. Anemia: 9. CKD (chronic kidney disease) stage 2, GFR 60-89 ml/min: Reason for Visit Reason for Visit: cp Brief History: Odilia Ulloa is a 74 year old woman with chronic kidney disease (CKD), coronary artery disease (CAD) with prior coronary angioplasty and stenting, history of mitral valve replacement, congestive heart failure (CHF), atrial fibrillation (AF), hypertension (HTN), hyperlipidemia (HLD), iron deficiency anemia (HANNAH), Alzheimer?s disease, hyperthyroidism, gastroesophageal reflux disease (GERD) presented to the emergency department for chest pain which felt like pressure with pain in the chest without radiation where she received aspirin. Pain began shortly after waking at 5:30 AM. Took one nitroglycerin at home with partial relief. Emergency medical services (EMS) administered another nitroglycerin with pain mostly resolved. She is anticoagulated with warfarin for a mechanical mitral valve. Cardiology was consulted in the ED for symptoms concerning for unstable angina. Plans for further evaluation and treatment were discussed (see A/P). Hospital Course Hospital Course Patient was admitted to the hospital further evaluation and management of chest pain with concern for unstable angina. Cardiology was consulted and she underwent Cardiac angiogram on 06/27 which showed patent stents, chronically occluded 80 to 90% proximal RCA with nondominant vessel unchanged in 2012. Patient was advised medical management. Patient hospitalization was otherwise unremarkable. It was prolonged for bridging of Lovenox to warfarin given her mechanical mitral valve. Eventually her INR improved. She has been discharged back [facility] in hemodynamically stable condition with advised to take her home dose of warfarin and Lovenox 1 mg/kg body weight every 12 hourly. She is to stop Lovenox once INR is at range of 2.4-3.5. She is to repeat INR in 2 days. Physical Exam Narrative: General: Alert oriented x3, patient seen lying without distress HEENT: Normocephalic, atraumatic, EOMI, breathing at room air Cardio: Regular rate rhythm, normal S1-S2, no murmurs rubs gallops, JVD normal Respiratory: Good bilateral air entry, no wheezes no rhonchi appreciated GI: Abdomen soft, nontender, nondistended, normoactive bowel sounds present all 4 quadrants, Neuro: Cranial nerves II to XII intact, strength 5/5, sensation 5/5, no gross neurological deficit Behavior: Appropriate and cooperative Extremities: Pulses 2+, no edema, no cyanosis Skin: Visible skin intact, no rashes Discharge Data Studies Completed and Pending Completed Studies During Hospitalization Category Date Time Status Cardiac Stress Test MIBI [Sestamibi Stress Test Request Exams 06/26/25 06:00 Completed ] Routine XR chest 1V portable [id number] Stat Exams 06/25/25 06:36 Completed NM ankita perf SPECT r/s* [id number] Routine Nuc Med 06/26/25 10:19 Completed Pending at discharge Category Date Time Status GENERAL ASSEMBLER request for service Routine Exams 06/27/25 06:21 Taken MAG [Magnesium] AM LABS Lab 06/30/25 04:00 Ordered MAG [Magnesium] AM LABS Lab 07/01/25 04:00 Ordered Prothrombin Time INR AM LABS Lab 06/30/25 04:00 Ordered Radiology Impressions Chest X-Ray 06/25/25 06:36 IMPRESSION: 1. No acute cardiopulmonary finding. 2. Chronic bibasal plaque atelectasis. Laboratory Results WBC 5.45 10^3/uL (3.29-11.43) 06/29/25 04:30 RBC 3.15 10^6/uL (3.85-5.65) L 06/29/25 04:30 Hgb 10.70 g/dL (11.27-16.99) L 06/29/25 04:30 Hct 32.8 % (36-47) L 06/29/25 04:30 MCV 104.1 fl (85-98) H 06/29/25 04:30 MCH 34.0 pg (27-33) H 06/29/25 04:30 MCHC 32.6 g/dL (30-55) 06/29/25 04:30 RDW 12.9 % (12.1-15.1) 06/29/25 04:30 Plt Count 199 10^3/cmm (157-399) 06/29/25 04:30 MPV 9.5 fL (7.4-10.4) 06/29/25 04:30 Neut % (Auto) 43.5 % 06/29/25 04:30 Lymph % (Auto) 37.2 % 06/29/25 04:30 [place] % (Auto) 10.8 % 06/29/25 04:30 Eos % (Auto) 6.8 % 06/29/25 04:30 Baso % (Auto) 1.5 % 06/29/25 04:30 Neut # (Auto) 2.37 10^3/uL (1.8-7.7) 06/29/25 04:30 Lymph # (Auto) 2.0 10^3/uL (0.8-4.8) 06/29/25 04:30 [place] # (Auto) 0.6 10^3/uL (0.2-0.9) 06/29/25 04:30 Eos # (Auto) 0.4 10^3/uL (0.0-0.8) 06/29/25 04:30 Baso # (Auto) 0.1 10^3/uL (0.0-0.1) 06/29/25 04:30 Nucleated RBC % (auto) 0 % 06/29/25 04:30 Nucleated RBCs # 0.0 /100WBC 06/29/25 04:30 PT 25.90 SECONDS (12.1-14.9) H D 06/29/25 04:30 INR 2.22 (0.8-1.2) H 06/29/25 04:30 APTT 63.0 SECONDS (23.9-36.7) H 06/28/25 12:00 Sodium 142 mmol/L (136-145) 06/29/25 04:30 Potassium 4.0 mmol/L (3.5-5.1) 06/29/25 04:30 Chloride 106 mmol/L (98-107) 06/29/25 04:30 Carbon Dioxide 27 mmol/L (22-29) 06/29/25 04:30 Anion Gap 13.0 (5-19) 06/29/25 04:30 BUN 14 mg/dL (8-23) 06/29/25 04:30 Creatinine 0.9 mg/dL (0.5-0.9) 06/29/25 04:30 GFR Calculation Not Reportable 06/29/25 04:30 Glucose 81 mg/dL (65-115) 06/29/25 04:30 Calculated Osmolality 294 mOsm/kg (285-295) 06/29/25 04:30 Calcium 10.2 mg/dL (8.5-10.5) 06/29/25 04:30 Magnesium 2.0 mg/dL (1.7-2.3) 06/29/25 04:30 Iron 104 ug/dL (37-145) 06/27/25 17:16 TIBC 249 mcg/dl 06/27/25 17:16 % Saturation 41.7 % (20-50) 06/27/25 17:16 Unsat Iron Binding 145 ug/dL (112-347) 06/27/25 17:16 Ferritin 197 ng/mL (15-150) H 06/27/25 17:16 Total Bilirubin 0.7 mg/dL (0.15-1.2) 06/29/25 04:30 AST 17 U/L (0-32) 06/29/25 04:30 ALT 10 U/L (0-33) 06/29/25 04:30 Alkaline Phosphatase 87 U/L (35-105) 06/29/25 04:30 Troponin T Baseline 12 ng/L (0-10) H 06/26/25 03:57 Troponin T 120 Minute 12.19 ng/L (0-10) H 06/26/25 05:56 Delta Troponin T 0.19 ABS# (0-10) 06/26/25 05:56 Troponin T Hi Sens 6Hr 11.44 ng/L (0-10) H 06/26/25 10:11 Troponin T Hi Sens 6Hr Delta -0.56 ng/L (0-12) L 06/26/25 10:11 C-Reactive Protein 3.0 mg/L (0.0-4.9) 06/25/25 06:29 Total Protein 6.6 g/dL (6.6-8.7) 06/29/25 04:30 Albumin 3.8 g/dL (3.5-5.2) 06/29/25 04:30 Globulin 2.8 g/dL (1.3-4.6) 06/29/25 04:30 Triglycerides 94 mg/dL (0-150) 06/25/25 12: Cholesterol 209 mg/dL (0-200) H 06/25/25 12:25 LDL Cholesterol, Calc 136 mg/dL (50-129) H 06/25/25 12:25 HDL Cholesterol 54 mg/dL (60-100) L 06/25/25 12: LDL/HDL Ratio 2.52 RATIO (0.00-3.22) 06/25/25 12: Cholesterol/HDL Ratio 3.87 mg/dL (0.0-4.40) 06/25/25 12: Vitamin B12 1683 pg/mL (232-1245) H 06/27/25 17:16 Folate > 20.0 ng/mL (4.8-37.3) 06/29/25 04:30 TSH 3.21 uIU/mL (0.27-4.20) 06/29/25 04:30 Vitals Last Vital Signs Temp 97.2 F L 06/29/25 08:00 Pulse 96 06/29/25 08:00 Resp 20 H 06/29/25 08:00 BP 111/85 06/29/25 08:00 Pulse Ox 94 06/29/25 08:00 O2 Del Method Room Air 06/29/25 08:00 Discharge Plan Discharge Patient Disposition: Home Condition: Stable Prescriptions: New atorvastatin 40 mg Tablet 40 mg PO BEDTIME Qty: 30 0RF enoxaparin [Lovenox] 80 mg/0.8 mL syringe 70 mg SUBCUT Q12H 2 Days Qty: 2.8 0RF aspirin 81 mg capsule 81 mg PO DAILY Qty: 30 0RF Continued nitroglycerin [Nitrostat] 0.4 mg tablet, sublingual 0.4 mg SUBLINGUAL Q5M PRN (Reason: chest pains) Pepto-Bismol Max St 525 mg/15 mL suspension 525 mg PO Q8H PRN (Reason: Nausea/vomiting/diarrhea) Rx Instructions: do not exceed 8 doses in a 24 hour period meclizine 12.5 mg tablet 12.5 mg PO Q6H PRN (Reason: nausea and vomiting ) potassium chloride 20 mEq tablet extended release 20 meq PO BID@0700,1900 mirtazapine 15 mg tablet 15 mg PO QAM metoprolol tartrate 100 mg tablet 100 mg PO BID Qty: 180 3RF folic acid 1 mg tablet 1 mg PO DAILY furosemide 40 mg tablet 60 mg PO DAILY@0700 Qty: 135 0RF galantamine 8 mg capsule,ext rel. pellets 24 hr 8 mg PO QAM 90 Days Qty: 90 3RF memantine 5 mg tablet 5 mg PO BID Qty: 180 3RF tramadol 50 mg Tablet 50 mg PO Q6H PRN (Reason: Pain) levothyroxine [Euthyrox] 75 mcg tablet 75 mcg PO DAILY@0700 pantoprazole 40 mg tablet,delayed release (DR/EC) 40 mg PO QAM cetirizine [Zyrtec] 10 mg Tablet 10 mg PO PRN PRN (Reason: Allergy Symptoms) warfarin 2.5 mg tablet See Rx Instructions .ROUTE .COMPLEX Rx Instructions: Take 1 tablet by mouth on Sunday , Sunday , , Sunday , and Sunday hydroxyzine HCl 25 mg tablet 25 mg PO TID PRN (Reason: Anxiety) polyethylene glycol 3350 [Miralax] 17 gram/dose Powder 17 g PO QAM ipratropium bromide 42 mcg (0.06 %) spray,non-aerosol 2 spray INTRANASAL TID PRN (Reason: ALLERGIES) magnesium hydroxide [Milk of Magnesia] 400 mg/5 mL Suspension 30 ml PO PRN PRN (Reason: bowel movemaent ) amiodarone 200 mg tablet 200 mg PO PRN PRN (Reason: if blood pressure is over 120) cyanocobalamin (vitamin B-12) 1,000 mcg Tablet, Sublingual 2,000 mcg SUBLINGUAL DAILY [id number]-lkw-turp-pet Ointment 1 ea TOPICAL PRN PRN (Reason: thick toe nails) acetaminophen 500 mg Tablet 1,000 mg PO Q8H Icy Hot 30-10 % Cream 1 applic TOPICAL TID PRN (Reason: sore muscles) spironolactone 25 mg tablet 25 mg PO QAM warfarin 3 mg tablet See Rx Instructions .ROUTE .COMPLEX Rx Instructions: Take 1 tablet by mouth on Sunday and Sunday Discharge Order = DC NOW: Discharge Order (Routine); Ordered 06/29/25 Ordered By: Andre Choi Referrals: Coty Sibley FNP [Nurse Practitioner, Cardiology] - 7-10 days Referral Note: We have notified your physician's clinic of the need for a follow-up appointment to be scheduled. If you have not heard from them within the next 2 business days, please call them directly. Danny Marmolejo MD [Primary Care Provider, [facility]] - 7-10 days Referral Note: Please call tomorrow for an follow-up appointment with 4 to 7 days. As [facility] is closed. Thank you! Discharge Diet: Cardiac Discharge Activity: Resume usual activity and Increase activity as tolerated Patient Instructions: Warfarin (By mouth), Enoxaparin (By injection) (Lovenox), Atorvastatin (By mouth), Hypertension (DC), Heart Catheterization (DC), Chest Pain Stoplight, Opioid Safety, Post Angiogram Home Care Instructions, Patient Portal & Radha Instructions Activity Restrictions/Additional Instructions: Recheck INR in 2 days. Goal INR is 2.5-3.5. Take Lovenox 1 mg/kg body weight twice daily for 2 days. Discontinue Lovenox once INR is at goal. Follow-up with your primary care provider within next 1 week. Discharge Attestations Time Spent in Discharge Care*: greater than 30 min Specific Discharge Activities: educating patient, educating and/or supporting family/caregiver, discussing with pcp/other providers, discussing with case management assistant/social workers/dc planners, documenting/other paperwork and evaluating patient/reviewing data Status at Discharge: Cognitive status at discharge: cognitively intact , Behavioral status at discharge: cooperative , Functional status at discharge: independent ambulation , Overall status at discharge: patient is back to baseline Quality Metrics Clinical Quality Measures [ No reported AMI, CVA or VTE this stay] Coding Level of Care Code 87449 Total time (in minutes) for Discharge: 65 Diagnoses Unstable angina I20.0 Primary hypertension I10 Hypertension type: primary hypertension Coronary artery disease involving [place] coronary artery of [place] heart without angina pectoris I25.10 Associated angina: without angina Coronary Disease-Associated Artery/Lesion type: [place] artery [place] vs. transplanted heart: [place] heart Tension headache G44.209 Atherosclerosis of [place] coronary artery of [place] heart without angina pectoris I25.10 Coronary Disease-Associated Artery/Lesion type: [place] artery Ischemic congestive cardiomyopathy I25.5; I42.0 Hypothyroid E03.9 Anemia D64.9 CKD (chronic kidney disease) stage 2, GFR 60-89 ml/min N18.2
--- NOTE | 2025-06-29 10:14 | PC.NURSE ---
patient discharged to home. Instruction provided regarding follow up needs and new medications with changes. Patient verbalized complete understanding. Copies given to [facility]. [facility] to provided transportation.
[2025-06-29 10:15] VITALS: BP 111/85; PULSE 75; O2SAT 93
== END 2025-06-29 10:18 | disposition home or self-care (01) | DRG 287 ==
LOC: ER 14:51 → CSU 06-26 00:14 → ER IP 06-26 06:43
PROVIDERS: Internal Medicine; Internal Medicine Cardiovascular Disease; Nurse Practitioner Family; Student in an Organized Health Care Education/Training Program; Admitting Provider Internal Medicine; Emergency Provider Family Medicine; PCP Family Medicine; Visit Provider Student in an Organized Health Care Education/Training Program
PROC: B2111ZZ Fluoroscopy of Multiple Coronary Arteries using Low Osmolar Contrast (ICD-10-PCS; principal; 2025-06-27 15:45)
DX: I25.110 Atherosclerotic heart disease of native coronary artery with unstable angina pectoris (principal); I13.0 Hypertensive heart and chronic kidney disease with heart failure and stage 1 through stage 4 chronic kidney disease, or unspecified chronic kidney disease; I48.20 Chronic atrial fibrillation, unspecified; I25.82 Chronic total occlusion of coronary artery; I50.9 Heart failure, unspecified; N18.2 Chronic kidney disease, stage 2 (mild); G44.209 Tension-type headache, unspecified, not intractable; I25.5 Ischemic cardiomyopathy; E03.9 Hypothyroidism, unspecified; D63.1 Anemia in chronic kidney disease; E78.2 Mixed hyperlipidemia; D50.9 Iron deficiency anemia, unspecified; G30.9 Alzheimer's disease, unspecified; F02.80 Dementia in other diseases classified elsewhere, unspecified severity, without behavioral disturbance, psychotic disturbance, mood disturbance, and anxiety; K21.9 Gastro-esophageal reflux disease without esophagitis; R94.39 Abnormal result of other cardiovascular function study; I27.20 Pulmonary hypertension, unspecified; I08.1 Rheumatic disorders of both mitral and tricuspid valves; I45.10 Unspecified right bundle-branch block; K59.09 Other constipation; G47.00 Insomnia, unspecified; F41.9 Anxiety disorder, unspecified; Z79.01 Long term (current) use of anticoagulants; Z95.2 Presence of prosthetic heart valve
CPT/HCPCS: 36415; 71045; 78452; 80048; 80053; 80061; 82607; 82728; 82746; 83540; 83550; 83735; 84443; 84484; 85025; 85347; 85610; 85730; 86140; 93005; 93017; 93454; 96372; 96375; 99152; 99153; 99285; A9500; C1769; C1887; C1894; G0378; J0280; J1644; J1650; J2250; J2785; J3010; J3490; J7030; J9999; Q9967

== ENCOUNTER 2025-07-05 03:22 | Emergency (ER) | payer MEDICARE, MEDICAID, SELFPAY ==
[2025-07-05 03:23] VITALS: BP 150/101; PULSE 89; RESP 16; TEMP 36.6; O2SAT 96; BMI 28.3
--- NOTE | 2025-07-05 03:56 | W.ED.EXTPRO ---
HPI - Extremity Problem General: Chief complaint: Extremity Problem,Nontraumatic Stated complaint: ARM PAIN Time Seen by Provider: 07/05/25 03:48 History of Present Illness: Patient is a 74-year-old female who presents with left arm pain that woke her up at 2:00 AM this morning. She describes a burning sensation in her left shoulder and side. The patient reports numbness and tingling in the left arm, particularly in the upper portion. She denies sleeping on the affected side, stating she typically sleeps on her right side. Patient also complains of neck pain. She denies fever but reports that her bones in her arm and leg are sore. The pain appears to worsen with palpation and slightly increases with head compression. Related Data Home Medications ?Medication ?Instructions ?Recorded ?Confirmed nitroglycerin 0.4 mg sublingual 0.4 mg sublingual Q5M PRN chest 11/07/19 06/25/25 tablet (Nitrostat) pains levothyroxine 75 mcg tablet 75 mcg PO DAILY@0700 hypothyroidism 11/11/20 06/25/25 (Euthyrox) tramadol 50 mg tablet 50 mg PO Q6H PRN Pain 11/11/20 06/25/25 potassium chloride 20 mEq 20 meq PO BID@0700,1900 12/22/20 06/25/25 tablet,extended release meclizine 12.5 mg tablet 12.5 mg PO Q6H PRN nausea and 04/19/21 06/25/25 vomiting bismuth subsalicylate 525 mg/15 mL 525 mg PO Q8H PRN 08/15/21 06/25/25 oral suspension (Pepto-Bismol Max Nausea/vomiting/diarrhea St) mirtazapine 15 mg tablet 15 mg PO QAM 05/21/24 06/25/25 pantoprazole 40 mg tablet,delayed 40 mg PO QAM 12/05/24 06/25/25 release amiodarone 200 mg tablet 200 mg PO PRN PRN if blood 01/31/25 06/25/25 pressure is over 120 cetirizine 10 mg tablet (Zyrtec) 10 mg PO PRN PRN Allergy Symptoms 01/31/25 06/25/25 hydroxyzine HCl 25 mg tablet 25 mg PO TID PRN Anxiety 01/31/25 06/25/25 ipratropium bromide 42 mcg (0.06 2 spray intranasal TID PRN 01/31/25 06/25/25 %) nasal spray ALLERGIES magnesium hydroxide 400 mg/5 mL 30 ml PO PRN PRN bowel movemaent 01/31/25 06/25/25 oral suspension (Milk of Magnesia) polyethylene glycol 3350 17 17 g PO QAM Constipation 01/31/25 06/25/25 gram/dose oral powder (Miralax) warfarin 2.5 mg tablet See Rx Instructions .Route .COMPLEX 01/31/25 06/25/25 warfarin 3 mg tablet See Rx Instructions .Route .COMPLEX 05/27/25 06/25/25 folic acid 1 mg tablet 1 mg PO DAILY 06/22/25 06/25/25 acetaminophen 500 mg tablet 1,000 mg PO Q8H 06/25/25 06/25/25 rziib-pgbqfamz-fzl-turp-pet 1 ea topical PRN PRN thick toe 06/25/25 06/25/25 topical ointment nails cyanocobalamin (vitamin B-12) 2,000 mcg sublingual DAILY 06/25/25 06/25/25 1,000 mcg sublingual tablet methyl salicylate 30 %-menthol 10 1 applic topical TID PRN sore 06/25/25 06/25/25 % topical cream (Icy Hot) muscles spironolactone 25 mg tablet 25 mg PO QAM 06/25/25 06/25/25 Previous Rx's ?Medication ?Instructions ?Recorded furosemide 40 mg tablet 60 mg (1.5 x 40 mg) PO DAILY@0700 05/18/23 edema #135 tabs metoprolol tartrate 100 mg tablet 100 mg PO BID #180 tabs 12/05/24 galantamine 8 mg 24 hr 8 mg PO QAM 90 days #90 caps 05/06/25 capsule,extended release memantine 5 mg tablet 5 mg PO BID #180 tabs 05/06/25 aspirin 81 mg capsule 81 mg PO DAILY #30 caps 06/29/25 atorvastatin 40 mg tablet 40 mg PO BEDTIME #30 tabs 06/29/25 methylprednisolone 4 mg tablets in See Rx Instructions PO .COMPLEX 07/05/25 a dose pack (Medrol (Chema)) #21 ea Allergies Allergy/AdvReac Type Severity Reaction Status Date / Time diltiazem (From Cardizem) Allergy Unknown Verified 06/23/25 10:03 morphine Allergy Unknown Verified 06/23/25 10:03 Review of Systems Narrative: Constitutional: Denies fever. Cardiovascular: Reports left arm pain and burning sensation. Respiratory: Patient initially mentioned hard breath but no further respiratory complaints were elaborated. Integumentary: Denies rash on the affected side. Neurological: Reports numbness and tingling in left arm. Musculoskeletal: Reports neck pain and bone soreness in arm and leg. PFSH ED PFSH: Medical History Chronic anxiety History of iron deficiency anemia Alzheimer disease CKD (chronic kidney disease) stage 2, GFR 60-89 ml/min Hypertension CAD (coronary artery disease) CHF (congestive heart failure) Insomnia Hypothyroid Hyperlipidemia Chronic neck and back pain GERD (gastroesophageal reflux disease) Chronic atrial fibrillation Chronic constipation Surgical History History of heart artery stent Coronary angioplasty/stent placement in 2011 and in 2012 Hx of colonoscopy 2018 H/O esophagogastroduodenoscopy 2011, 2016, and 2018 S/P cholecystectomy H/O section Mitral valve replaced mechanical valve replacement 1994 Family History Other CAD (coronary artery disease) Diabetes Social History Smoking and tobacco/nicotine status: never used tobacco/nicotine Alcohol intake: never Substance/Drug Use: never Housing: Assisted Living Facility Marital status: Single Number of children: 1 Current occupational status: disabled Current gender identity: Female Female Reproductive History: Para: 1 Physical Exam Const: COMMON NORMALS: no acute distress GENERAL APPEARANCE: cooperative; not ill appearing and not frail appearing HENMT: COMMON NORMALS: normocephalic, atraumatic and Normal external nose present HEAD & SCALP: normocephalic and atraumatic FACE & SINUS: normal facial exam and face symmetric NOSE: Normal external nose present Eye: COMMON NORMALS: Equal, round and reactive pupils present and EOMs intact bilaterally PUPIL: Yes Equal, round and reactive pupils present Neck/C-Spine: GENERAL: Yes trachea midline Chest: CHEST: Yes Symmetrical chest wall rise Resp: COMMON NORMALS: normal respiratory effort, No retractions, No use of accessory muscles and clear to auscultation bilaterally AUSCULTATION: clear to auscultation bilaterally Cardio: COMMON NORMALS: regular rate and regular rhythm RATE: regular rate RHYTHM: regular rhythm GI: COMMON NORMALS: Normal to inspection, nondistended, normoactive bowel sounds present Extremity: COMMON NORMALS: no pedal edema NARRATIVE EXTREMITY EXAM: Some tenderness over the rotator cuff, and proximal arm. No deformity. Normal pulses and sensation distally. Neuro: ANT COMA SCALE: document GCS findings Ant coma scale eye opening: Spontaneous Ant coma scale verbal response: Orientated [place] coma scale motor response: Obey commands [place] coma scale total score: 15 SENSORY EXAM: Yes extremities (intact) Psych: COMMON NORMALS: speech normal SPEECH: Yes normal speech Skin: COMMON NORMALS: no rashes or lesions noted GENERAL SKIN EXAM: no rashes or lesions noted Course Vital Signs: Vital signs: Vital Signs Temperature 97.9 F 07/05/25 03:23 Pulse Rate 79 07/05/25 06:32 Respiratory Rate 14 07/05/25 06:32 Blood Pressure 138/93 07/05/25 06:32 Pulse Oximetry 96 07/05/25 06:32 Oxygen Delivery Me thod Room Air 07/05/25 03:23 MDM - Extremity (Nontraumatic) Medical Decision Making The patient is in no distress. She is quite stable. She is mildly hypertensive. Other vitals are normal. EKG shows atrial fibrillation with a controlled rate of 75. [place] is normal. She has an RSR prime in V1. No acute ST wave changes. QRS is minimally prolonged at 128 ms. She will be discharged. Differential diagnosis includes rotator cuff pathology, cervical radiculopathy, less likely upper extremity clot given her therapeutic INR. Her troponin is at baseline making cardiac etiology much less likely, especially given the fact that she had a cardiac cath last week. She will be discharged home. Outpatient follow-up. Return for new or worsening symptoms. Lab Data 07/05/25 03:10 07/05/25 03:10 Radiology Impressions Chest X-Ray 07/05/25 04:02 IMPRESSION: No focal acute pulmonary disease. Laboratory Results WBC 5.99 10^3/uL (3.29-11.43) 07/05/25 03:10 RBC 3.38 10^6/uL (3.85-5.65) L 07/05/25 03:10 Hgb 11.60 g/dL (11.27-16.99) 07/05/25 03:10 Hct 35.5 % (36-47) L 07/05/25 03:10 MCV 105.0 fl (85-98) H 07/05/25 03:10 MCH 34.3 pg (27-33) H 07/05/25 03:10 MCHC 32.7 g/dL (30-55) 07/05/25 03:10 RDW 13.0 % (12.1-15.1) 07/05/25 03:10 Plt Count 230 10^3/cmm (157-399) 07/05/25 03:10 MPV 9.8 fL (7.4-10.4) 07/05/25 03:10 Neut % (Auto) 41.3 % 07/05/25 03:10 Lymph % (Auto) 39.7 % 07/05/25 03:10 [place] % (Auto) 10.7 % 07/05/25 03:10 Eos % (Auto) 6.8 % 07/05/25 03:10 Baso % (Auto) 1.2 % 07/05/25 03:10 Neut # (Auto) 2.47 10^3/uL (1.8-7.7) 07/05/25 03:10 Lymph # (Auto) 2.4 10^3/uL (0.8-4.8) 07/05/25 03:10 [place] # (Auto) 0.6 10^3/uL (0.2-0.9) 07/05/25 03:10 Eos # (Auto) 0.4 10^3/uL (0.0-0.8) 07/05/25 03:10 Baso # (Auto) 0.1 10^3/uL (0.0-0.1) 07/05/25 03:10 Nucleated RBC % (auto) 0 % 07/05/25 03:10 Nucleated RBCs # 0.0 /100WBC 07/05/25 03:10 PT 27.90 SECONDS (12.1-14.9) H 07/05/25 03:10 INR 2.44 (0.8-1.2) H 07/05/25 03:10 Sodium 138 mmol/L (136-145) 07/05/25 03:10 Potassium 4.8 mmol/L (3.5-5.1) 07/05/25 03:10 Chloride 103 mmol/L (98-107) 07/05/25 03:10 Carbon Dioxide 27 mmol/L (22-29) 07/05/25 03:10 Anion Gap 12.8 (5-19) 07/05/25 03:10 BUN 16 mg/dL (8-23) 07/05/25 03:10 Creatinine 1.0 mg/dL (0.5-0.9) H 07/05/25 03:10 GFR Calculation Not Reportable 07/05/25 03:10 Glucose 85 mg/dL (65-115) 07/05/25 03:10 Calculated Osmolality 286 mOsm/kg (285-295) 07/05/25 03:10 Calcium 10.5 mg/dL (8.5-10.5) 07/05/25 03:10 Total Bilirubin 0.8 mg/dL (0.15-1.2) 07/05/25 03:10 AST 28 U/L (0-32) 07/05/25 03:10 ALT 19 U/L (0-33) 07/05/25 03:10 Alkaline Phosphatase 93 U/L (35-105) 07/05/25 03:10 Troponin T Baseline 13 ng/L (0-10) H 07/05/25 03:10 Troponin T 120 Minute 10.28 ng/L (0-10) H 07/05/25 05:06 Delta Troponin T -2.72 ABS# (0-10) L 07/05/25 05:06 NT-Pro-B Natriuret Pep 1093 pg/mL (0-450) H 07/05/25 03:10 Total Protein 7.4 g/dL (6.6-8.7) 07/05/25 03:10 Albumin 4.5 g/dL (3.5-5.2) 07/05/25 03:10 Globulin 2.9 g/dL (1.3-4.6) 07/05/25 03:10 All radiology interpretation(s) finalized by discharge Discharge Plan Discharge Patient Disposition: Home Clinical Impression: Shoulder pain, left, Paresthesia Condition: Stable Prescriptions: New methylprednisolone [Medrol (Chema)] 4 mg tablets,dose pack See Rx Instructions .ROUTE .COMPLEX Qty: 21 0RF Rx Instructions: orally per package directions No Action nitroglycerin [Nitrostat] 0.4 mg tablet, sublingual 0.4 mg SUBLINGUAL Q5M PRN (Reason: chest pains) Pepto-Bismol Max St 525 mg/15 mL suspension 525 mg PO Q8H PRN (Reason: Nausea/vomiting/diarrhea) Rx Instructions: do not exceed 8 doses in a 24 hour period meclizine 12.5 mg tablet 12.5 mg PO Q6H PRN (Reason: nausea and vomiting ) potassium chloride 20 mEq tablet extended release 20 meq PO BID@0700,1900 mirtazapine 15 mg tablet 15 mg PO QAM metoprolol tartrate 100 mg tablet 100 mg PO BID Qty: 180 3RF folic acid 1 mg tablet 1 mg PO DAILY furosemide 40 mg tablet 60 mg PO DAILY@0700 Qty: 135 0RF galantamine 8 mg capsule,ext rel. pellets 24 hr 8 mg PO QAM 90 Days Qty: 90 3RF memantine 5 mg tablet 5 mg PO BID Qty: 180 3RF tramadol 50 mg Tablet 50 mg PO Q6H PRN (Reason: Pain) levothyroxine [Euthyrox] 75 mcg tablet 75 mcg PO DAILY@0700 pantoprazole 40 mg tablet,delayed release (DR/EC) 40 mg PO QAM cetirizine [Zyrtec] 10 mg Tablet 10 mg PO PRN PRN (Reason: Allergy Symptoms) warfarin 2.5 mg tablet See Rx Instructions .ROUTE .COMPLEX Rx Instructions: Take 1 tablet by mouth on Sunday , Sunday , , Sunday , and Sunday hydroxyzine HCl 25 mg tablet 25 mg PO TID PRN (Reason: Anxiety) polyethylene glycol 3350 [Miralax] 17 gram/dose Powder 17 g PO QAM ipratropium bromide 42 mcg (0.06 %) spray,non-aerosol 2 spray INTRANASAL TID PRN (Reason: ALLERGIES) magnesium hydroxide [Milk of Magnesia] 400 mg/5 mL Suspension 30 ml PO PRN PRN (Reason: bowel movemaent ) amiodarone 200 mg tablet 200 mg PO PRN PRN (Reason: if blood pressure is over 120) cyanocobalamin (vitamin B-12) 1,000 mcg Tablet, Sublingual 2,000 mcg SUBLINGUAL DAILY ezzwy-sadibibv-xpx-turp-pet Ointment 1 ea TOPICAL PRN PRN (Reason: thick toe nails) acetaminophen 500 mg Tablet 1,000 mg PO Q8H Icy Hot 30-10 % Cream 1 applic TOPICAL TID PRN (Reason: sore muscles) spironolactone 25 mg tablet 25 mg PO QAM atorvastatin 40 mg Tablet 40 mg PO BEDTIME Qty: 30 0RF aspirin 81 mg capsule 81 mg PO DAILY Qty: 30 0RF warfarin 3 mg tablet See Rx Instructions .ROUTE .COMPLEX Rx Instructions: Take 1 tablet by mouth on Sunday and Sunday Discharge Orders: Discharge ED (Routine); Ordered 07/05/25 Ordered By: Charlie Lyons Referrals: Danny Marmolejo MD [Primary Care Provider, [facility]] - 1-3 days Patient Instructions: Paresthesia (ED), Shoulder Pain (ED), Opioid Safety, Pain Management, Patient Portal & Radha Instructions Activity Restrictions/Additional Instructions: The cause of your shoulder pain is unclear. It does not appear related to your heart or lungs or other medical problems. It is most likely coming from a rotator cuff problem, or an irritated nerve in your neck. In either case, treatment is a tapering dose of steroid over the next few days. Call your doctor tomorrow morning for a follow-up appointment. You may require some physical therapy for ongoing problems. Print Language: Luxembourgish Coding Level of Care Code ED Mortgage Loan Reviewer for Indra Carmona
--- NOTE | 2025-07-05 04:02 | XRR_ITS ---
PROCEDURE INFORMATION: Exam: XR Chest Exam date and time: 07/05/2025 4:05 AM Age: 74 years old Clinical indication: Shortness of breath; Prior surgery; Surgery date: 6+ months; Surgery type: Mitral valve replacement. Coronary stent; C/O SOB with left shoulder pain. History of chf. ; Additional info: Left shoulder pain, SOB TECHNIQUE: Imaging protocol: Radiologic exam of the chest. Views: 1 view. COMPARISON: CR XR chest 1V portable [id number] 06/25/2025 7:02 AM FINDINGS: Lungs: Chronic reticular interstitial changes. No consolidation. Pleural spaces: Unremarkable. No pleural effusion. No pneumothorax. Heart/Mediastinum: Mild cardiomegaly. CABG. Bones/joints: Unremarkable. XR/XR chest 1V portable [id number] IMPRESSION: No focal acute pulmonary disease.
--- OUTSIDE RECORDS SUMMARY | 2025-07-05 04:02 | XMS_ITS | Encounter Summary ---
Author Organization [facility] Address [address] [place] [address] Care Team Providers Care Chore Tender Name Role Phone Rico Muñiz MD, Sharan Jaime Primary Care Provider Encounter Details Date Type Department Care Team (Latest Contact Info) Description 06/29/2004 Outpatient Historical [facility] Int [facility] [place] [address] [place] [address] Serge Arrington MD [address] [place] [address] Mitral valve disorder (Primary Dx); HYPERTENSION NOS; HYPERLIPIDEMIA NEC/NOS; OSTEOPOROSIS NOS Social History Tobacco Use Types Packs/Day Years Used Date Smoking Tobacco: Never Assessed Comments Unknown Sex and Gender Information Value Date Recorded Sex Assigned at Not on file 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
--- OUTSIDE RECORDS SUMMARY | 2025-07-05 04:02 | XMS_ITS | Encounter Summary ---
Author Organization [facility] Address [address] [place] [address] Care Team Providers Care Tire Man Name Role Phone Rico Muñiz MD, Sharan Jaime Primary Care Provider Encounter Details Date Type Department Care Team (Latest Contact Info) Description 09/15/1998 Outpatient Historical [facility] Sharan Gómez Jr., MD [address] [place] [address] Unspecified essential hypertension (Primary Dx); Esophagitis, unspecified; long-term (current) use of anticoagulants; Need vaccination-viral disease Social History Tobacco Use Types Packs/Day Years Used Date Smoking Tobacco: Never Assessed Comments Unknown Sex and Gender Information Value Date Recorded Sex Assigned at Not on file 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 Gender Identity Not on file Sexual Orientation Not on file documented as of this encounter Plan of Treatment Not on file documented as of this encounter Visit Diagnoses Diagnosis Unspecified essential hypertension- Primary Esophagitis, unspecified superintendent terminal (current) use of anticoagulants Long-term (current) use of anticoagulants Need vaccination-viral disease Need for prophylactic vaccination and inoculation against other viral diseases documented in this encounter Care Teams Tire Man Relationship Specialty Start Date End Date Sharan Gómez Jr., MD [address] [place] [id number] PCP - General 08/10/05 documented as of this encounter
--- OUTSIDE RECORDS SUMMARY | 2025-07-05 04:02 | XMS_ITS | Encounter Summary ---
Author Organization [facility] Address [address] [place] [address] Care Team Providers Care Workcell Operator Name Role Phone Rico Muñiz MD, Sharan Jaime Primary Care Provider Encounter Details Date Type Department Care Team (Latest Contact Info) Description 11/04/1998 Outpatient Historical 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 Gender Identity Not on file Sexual Orientation Not on file documented as of this encounter Plan of Treatment Not on file documented as of this encounter Visit Diagnoses Diagnosis Acute upper respiratory infections of unspecified site- Primary Screening for other and unspecified respiratory condition Other dyspnea and respiratory abnormality FDC (current) use of anticoagulants Long-term (current) use of anticoagulants documented in this encounter Care Teams Workcell Operator Relationship Specialty Start Date End Date Sharan Gómez Jr., MD [address] [place] [address] PCP - General 08/10/05 documented as of this encounter
--- OUTSIDE RECORDS SUMMARY | 2025-07-05 04:02 | XMS_ITS | Encounter Summary ---
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) use of anticoagulants Social History Tobacco Use Types Packs/Day Years Used Date Smoking Tobacco: Never Assessed Comments Unknown Sex and Gender Information Value Date Recorded Sex Assigned at Not on file 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
--- OUTSIDE RECORDS SUMMARY | 2025-07-05 04:02 | XMS_ITS | Encounter Summary ---
Author Organization [facility] Address [address] [place] [address] Care Team Providers Care Pss Delivery Professional Name Role Phone Rico Muñiz MD, Sharan Jaime Primary Care Provider Encounter Details Date Type Department Care Team (Latest Contact Info) Description 01/14/1999 Outpatient Historical [facility] Sharan Gómez Jr., MD [address] [place] [address] Spasm of muscle (Primary Dx) Social History Tobacco Use Types Packs/Day Years Used Date Smoking Tobacco: Never Assessed Comments Unknown Sex and Gender Information Value Date Recorded Sex Assigned at Not on file 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
--- OUTSIDE RECORDS SUMMARY | 2025-07-05 04:02 | XMS_ITS | Encounter Summary ---
Author Organization [facility] Address [address] [place] [address] Care Team Providers Care Spray Painter Helper Name Role Phone Rico Muñiz MD, Sharan Jaime Primary Care Provider Encounter Details Date Type Department Care Team (Latest Contact Info) Description 08/05/2001 Outpatient Historical [facility] Sharan Gómez Jr., MD [address] [place] [address] Generalized anxiety disorder (Primary Dx); Hypopotassemia Social History Tobacco Use Types Packs/Day Years Used Date Smoking Tobacco: Never Assessed Comments Unknown Sex and Gender Information Value Date Recorded Sex Assigned at Not on file 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
--- OUTSIDE RECORDS SUMMARY | 2025-07-05 04:02 | XMS_ITS | Encounter Summary ---
Author Organization [facility] Address [address] [place] [address] Care Team Providers Care Sane Nurse Name Role Phone Rico Muñiz MD, Sharan Jaime Primary Care Provider Encounter Details Date Type Department Care Team (Latest Contact Info) Description 06/26/2003 Outpatient Historical [facility] Int [facility] [place] [facility] [place] [place] [id number] Serge Arrington MD [address] [place] [address] Mitral valve disorder (Primary Dx); HYPERTENSION NOS; HYPERLIPIDEMIA NEC/NOS; VACCINE FOR STREP PNEUMONIAE Social History Tobacco Use Types Packs/Day Years Used Date Smoking Tobacco: Never Assessed Comments Unknown Sex and Gender Information Value Date Recorded Sex Assigned at Not on file 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
--- OUTSIDE RECORDS SUMMARY | 2025-07-05 04:02 | XMS_ITS | Encounter Summary ---
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 Social History Tobacco Use Types Packs/Day Years Used Date Smoking Tobacco: Never Assessed Comments Unknown Sex and Gender Information Value Date Recorded Sex Assigned at Not on file Legal 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
--- OUTSIDE RECORDS SUMMARY | 2025-07-05 04:02 | XMS_ITS | Encounter Summary ---
Author Organization [facility] Address [address] [place] [address] Care Team Providers Care Internet Consultant Name Role Phone Rico Muñiz MD, Sharan Jaime Primary Care Provider Encounter Details Date Type Department Care Team (Latest Contact Info) Description 07/04/2005 Outpatient Historical [facility] Imaging Services-Faisal [place] [address] [place] [address] Serge Arrington MD [address] [place] [address] HYPERTENSION NOS (Primary Dx) Social History Tobacco Use Types Packs/Day Years Used Date Smoking Tobacco: Never Assessed Comments Unknown Sex and Gender Information Value Date Recorded Sex Assigned at Not on file Legal Sex Female 5:42 AM POWER PLANT OPERATOR APPRENTICE Gender Identity Not on file Sexual Orientation Not on file documented as of this encounter Plan of Treatment Not on file documented as of this encounter Visit Diagnoses Diagnosis Unspecified essential hypertension- Primary documented in this encounter Care Teams Internet Consultant Relationship Specialty Start Date End Date Sharan Gómez Jr., MD [address] [place] [address] PCP - General 08/10/05 documented as of this encounter
--- OUTSIDE RECORDS SUMMARY | 2025-07-05 04:02 | XMS_ITS | Encounter Summary ---
Author Organization [facility] Address [address] [place] [address] Care Team Providers Care Job Developer For Deaf Adults Name Role Phone Rico Muñiz MD, Sharan Jaime Primary Care Provider Encounter Details Date Type Department Care Team (Latest Contact Info) Description 01/03/2002 Outpatient Historical [facility] Sharan Gómez Jr., MD [address] [place] [address] FLU W RESP MANIFEST NEC (Primary Dx); AFTERCARE JAIL ANTICOAG USE Social History Tobacco Use Types Packs/Day Years Used Date Smoking Tobacco: Never Assessed Comments Unknown Sex and Gender Information Value Date Recorded Sex Assigned at Not on file Legal Sex Female 5:42 AM CW OPERATOR Gender Identity Not on file Sexual Orientation Not on file documented as of this encounter Plan of Treatment Not on file documented as of this encounter Visit Diagnoses Diagnosis Influenza with other respiratory manifestations- Primary retirement (current) use of anticoagulants Long-term (current) use of anticoagulants documented in this encounter Care Teams Job Developer For Deaf Adults Relationship Specialty Start Date End Date Sharan Gómez Jr., MD [address] [place] [address] PCP - General 08/10/05 documented as of this encounter
--- OUTSIDE RECORDS SUMMARY | 2025-07-05 04:02 | XMS_ITS | Encounter Summary ---
Author Organization [facility] Address [address] [place] [address] Care Team Providers Care Power Transformer Repair Supervisor Name Role Phone Rico Muñiz MD, Sharan Jaime Primary Care Provider Encounter Details Date Type Department Care Team (Late st Contact Info) Description 10/15/2020 Lab Requisition [facility] [address] [place] [address] Paulina Peterson MD [address] [place] [address] Social History Tobacco Use Types Packs/Day Years Used Date Smoking Tobacco: Never Assessed Comments Unknown Sex and Gender Information Value Date Recorded Sex Assigned at Not on file Legal Sex Female 5:42 AM RADIOLOGY AIDE Gender Identity Not on file Sexual Orientation Not on file documented as of this encounter Plan of Treatment Not on file documented as of this encounter Procedures Procedure Name Priority Date/Time Associated Diagnosis Comments PROTIME-INR Routine 10/15/2020 4:40 AM RADIOLOGY AIDE documented in this encounter Results * (ABNORMAL) PROTIME-INR (10/15/2020 4:40 AM RADIOLOGY AIDE) PROTIME 46.6(H) 11.9 - 15.5 Seconds 10/15/2020 4:26 PM RADIOLOGY AIDE [facility] INR 4.9(H) 0.8 - 1.2 10/15/2020 4:[address] [facility] Blood Collection / Unknown 10/15/2020 4:40 AM RADIOLOGY AIDE 10/15/2020 4:[address] [facility] - 10/15/2020 4:26 PM RADIOLOGY AIDE Expected Values for INR: DVT/PE Goal INR 2.5; range 2.0 - 3.0 Valve Replacement Tissue Goal INR 2.5; range 2.0 - 3.0 Valve Replacement Mechanical Goal INR 3.0; range 2.5 - 3.5 POST-AK Goal INR 2.5; range 2.0 - 3.0 or Goal INR 3.0; range 2.5 - 3.5 Atrial Fibrillation Goal INR 2.5; range 2.0 - 3.0 Ischemic Stroke Goal INR 2.5; range 2.0 - 3.0 For additional information see Guidelines for Anticoagulation available from the pharmacy [facility] Paulina Peterson MD HEMATOLOGY ORDERABLES Maame smart Result [facility] [address] [place] [address] documented in this encounter Visit Diagnoses Not on filedocumented in this encounter Care Teams Power Transformer Repair Supervisor Relationship Specialty Start Date End Date Sharan Gómez Jr., MD [address] [place] [address] PCP - General 08/10/05 documented as of this encounter
--- OUTSIDE RECORDS SUMMARY | 2025-07-05 04:02 | XMS_ITS | Encounter Summary ---
Author Organization [facility] Address [address] [place] [address] Care Team Providers Care Newspaper Columnist Name Role Phone Rico Muñiz MD, Sharan Jaime Primary Care Provider Encounter Details Date Type Department Care Team (Latest Contact Info) Description 04/19/2001 Outpatient Historical [facility] Arun Nichols NO ADDRESS ON FILE Contusion of hand(s) (Primary Dx) Social History Tobacco Use Types Packs/Day Years Used Date Smoking Tobacco: Never Assessed Comments Unknown Sex and Gender Information Value Date Recorded Sex Assigned at Not on file Legal Sex Female 5:42 AM SHEEP STICKER Gender Identity Not on file Sexual Orientation Not on file documented as of this encounter Plan of Treatment Not on file documented as of this encounter Visit Diagnoses Diagnosis Contusion of hand(s)- Primary documented in this encounter Care Teams Newspaper Columnist Relationship Specialty Start Date End Date Sharan Gómez Jr., MD [address] [place] [address] PCP - General 08/10/05 documented as of this encounter
--- OUTSIDE RECORDS SUMMARY | 2025-07-05 04:02 | XMS_ITS | Encounter Summary ---
Author Organization [facility] Address [address] [place] [address] Care Team Providers Care Financial Wellness Coach Name Role Phone Rico Muñiz MD, Sharan Jaime Primary Care Provider Encounter Details Date Type Department Care Team (Latest Contact Info) Description 07/04/2005 Outpatient Historical [facility] [place] [place] [address] Serge Arrington MD [address] [place] [address] ROUTINE CARRIER LOADER EXAMINATION (Primary Dx) Social History Tobacco Use Types Packs/Day Years Used Date Smoking Tobacco: Never Assessed Comments Unknown Sex and Gender Information Value Date Recorded Sex Assigned at Not on file Legal Sex Female 5:42 AM PLACEMENT INTERVIEWER Gender Identity Not on file Sexual Orientation Not on file documented as of this encounter Plan of Treatment Not on file documented as of this encounter Visit Diagnoses Diagnosis Routine gynecological examination- Primary documented in this encounter Care Teams Financial Wellness Coach Relationship Specialty Start Date End Date Sharan Gómez Jr., MD [address] [place] [address] PCP - General 08/10/05 documented as of this encounter
--- OUTSIDE RECORDS SUMMARY | 2025-07-05 04:02 | XMS_ITS | Encounter Summary ---
Author Organization [facility] Address [address] [place] [address] Care Team Providers Care Rag Cutting Machine Operator Name Role Phone Rico Muñiz MD, Sharan Jaime Primary Care Provider Encounter Details Date Type Department Care Team (Late st Contact Info) Description 06/24/2001 Outpatient Historical [facility] Serge Arrington MD [address] [facility] [address] [place] [address] Unspecified essential hypertension (Primary Dx); Other and unspecified hyperlipidemia Social History Tobacco Use Types Packs/Day Years Used Date Smoking Tobacco: Never Assessed Comments Unknown Sex and Gender Information Value Date Recorded Sex Assigned at Not on file Legal Sex Female 5:42 AM SPIRITS MODEL Gender Identity Not on file Sexual Orientation Not on file documented as of this encounter Plan of Treatment Not on file documented as of this encounter Visit Diagnoses Diagnosis Unspecified essential hypertension- Primary Other and unspecified hyperlipidemia documented in this encounter Care Teams Rag Cutting Machine Operator Relationship Specialty Start Date End Date Sharan Gómez Jr., MD [address] [place] [address] PCP - General 08/10/05 documented as of this encounter
--- OUTSIDE RECORDS SUMMARY | 2025-07-05 04:02 | XMS_ITS | Encounter Summary ---
Author Organization [facility] Address [address] [facility] Attn: Epic Prelude ADT [place] [address] Care Team Providers Care Punch Finisher Name Role Phone Rico Muñiz MD, Sharan [...] on file Legal Sex Female 5:42 AM WIND PROJECTS SUPERVISOR Gender Identity Not on file Sexual Orientation Not on file documented as of this encounter Plan of Treatment Not on file documented as of this encounter Visit Diagnoses Not on filedocumented in this encounter Care Teams Punch Finisher Relationship Specialty Start Date End Date Sharan Gómez Jr., MD [address] [place] [address] PCP - General 08/10/05 documented as of this encounter
--- OUTSIDE RECORDS SUMMARY | 2025-07-05 04:02 | XMS_ITS | Encounter Summary ---
Author Organization [facility] Address [address] [place] [address] Care Team Providers Care Collar Pointer Name Role Phone Rico Muñiz MD, Sharan Jaime Primary Care Provider Encounter Details Date Type Department Care Team (Latest Contact Info) Description 02/25/1999 Outpatient Historical [facility] Sharan Gómez Jr., MD [address] [place] [address] Dietary surveil/assistant corporation counsel (Primary Dx) Social History Tobacco Use Types Packs/Day Years Used Date Smoking Tobacco: Never Assessed Comments Unknown Sex and Gender Information Value Date Recorded Sex Assigned at Not on file Legal Sex Female 5:42 AM MANAGER REHAB Gender Identity Not on file Sexual Orientation Not on file documented as of this encounter Plan of Treatment Not on file documented as of this encounter Visit Diagnoses Diagnosis Dietary surveil/assistant corporation counsel- Primary Dietary surveillance and counseling documented in this encounter Care Teams Collar Pointer Relationship Specialty Start Date End Date Sharan Gómez Jr., MD [address] [place] [address] PCP - General 08/10/05 documented as of this encounter
--- OUTSIDE RECORDS SUMMARY | 2025-07-05 04:02 | XMS_ITS | Encounter Summary ---
Author Organization [facility] Address [address] [place] [address] Care Team Providers Care Butcher'S Assistant Name Role Phone Rico Muñiz MD, Sharan Jaime Primary Care Provider Encounter Details Date Type Department Care Team (Latest Contact Info) Description 06/26/[address] [facility] Imaging Services-Faisal Lopez [place] [address] [place] [address] Serge Arrington MD [address] [place] [address] HYPERTENSION NOS (Primary Dx); Routine medical exam Social History Tobacco Use Types Packs/Day Years Used Date Smoking Tobacco: Never Assessed Comments Unknown Sex and Gender Information Value Date Recorded Sex Assigned at Not on file Legal Sex Female 5:42 AM COMPLAINT CLERK Gender Identity Not on file Sexual Orientation Not on file documented as of this encounter Plan of Treatment Not on file documented as of this encounter Visit Diagnoses Diagnosis Unspecified essential hypertension- Primary Routine medical exam Routine general medical examination at a health care facility documented in this encounter Care Teams Butcher'S Assistant Relationship Specialty Start Date End Date Sharan Gómez Jr., MD [address] [place] [address] PCP - General 08/10/05 documented as of this encounter
--- OUTSIDE RECORDS SUMMARY | 2025-07-05 04:02 | XMS_ITS | Encounter Summary ---
Author Organization [facility] Address [address] [place] [address] Care Team Providers Care Shipping Hand Name Role Phone Rico Muñiz MD, Sharan Jaime Primary Care Provider Encounter Details Date Type Department Care Team (Latest Contact Info) Description 07/06/2006 Outpatient Historical [facility] Imaging Services-Faisal Lopez [place] [address] [place] [address] Jennifer Cash MD NO ADDRESS ON FILE Unspecified Essential Hypertension (Primary Dx); Other Chest Pain Social History Tobacco Use Types Packs/Day Years Used Date Smoking Tobacco: Never Assessed Comments Unknown Sex and Gender Information Value Date Recorded Sex Assigned at Not on file Legal Sex Female 5:42 AM BEARING GRINDER Gender Identity Not on file Sexual Orientation Not on file documented as of this encounter Plan of Treatment Not on file documented as of this encounter Visit Diagnoses Diagnosis Unspecified essential hypertension- Primary Other chest pain documented in this encounter Care Teams Shipping Hand Relationship Specialty Start Date End Date Sharan Gómez Jr., MD [address] [place] [address] PCP - General 08/10/05 documented as of this encounter
--- OUTSIDE RECORDS SUMMARY | 2025-07-05 04:02 | XMS_ITS | Encounter Summary ---
Author Organization [facility] Address [address] [place] [address] Care Team Providers Care Senior Microsoft Net Developer Name Role Phone Rico Muñiz MD, Sharan Jaime Primary Care Provider Encounter Details Date Type Department Care Team (Latest Contact Info) Description 05/16/2001 Outpatient Historical [facility] Sharan Gómez Jr., MD [address] [place] [address] Unspecified essential hypertension (Primary Dx); FCI (current) use of anticoagulants Social History Tobacco Use Types Packs/Day Years Used Date Smoking Tobacco: Never Assessed Comments Unknown Sex and Gender Information Value Date Recorded Sex Assigned at Not on file Legal Sex Female 5:42 AM BOILER TESTER Gender Identity Not on file Sexual Orientation Not on file documented as of this encounter Plan of Treatment Not on file documented as of this encounter Visit Diagnoses Diagnosis Unspecified essential hypertension- Primary FCI (current) use of anticoagulants Long-term (current) use of anticoagulants documented in this encounter Care Teams Senior Microsoft Net Developer Relationship Specialty Start Date End Date Sharan Gómez Jr., MD [address] [place] [address] PCP - General 08/10/05 documented as of this encounter
--- OUTSIDE RECORDS SUMMARY | 2025-07-05 04:02 | XMS_ITS | Encounter Summary ---
Author Organization [facility] Address [address] [place] [address] Care Team Providers Care Clinical Services Manager Name Role Phone Rico Muñiz MD, Sharan Jaime Primary Care Provider Encounter Details Date Type Department Care Team (Latest Contact Info) Description 11/14/2001 Outpatient Historical [facility] Sharan Gómez Jr., MD [address] [place] [address] OSTEOARTHROS NOS-UNSPEC (Primary Dx); HEART VALVE REPLAC NEC Social History Tobacco Use Types Packs/Day Years Used Date Smoking Tobacco: Never Assessed Comments Unknown Sex and Gender Information Value Date Recorded Sex Assigned at Not on file Legal Sex Female 5:42 AM WHEEL INSTALLER Gender Identity Not on file Sexual Orientation Not on file documented as of this encounter Plan of Treatment Not on file documented as of this encounter Visit Diagnoses Diagnosis Osteoarthrosis, unspecified whether generalized or localized, unspecified site- Primary Heart valve replaced by other means documented in this encounter Care Teams Clinical Services Manager Relationship Specialty Start Date End Date Sharan Gómez Jr., MD [address] [place] [address] PCP - General 08/10/05 documented as of this encounter
--- OUTSIDE RECORDS SUMMARY | 2025-07-05 04:02 | XMS_ITS | Encounter Summary ---
Author Organization [facility] Address [address] [place] [address] Care Team Providers Care Slide Fastener Repairer Name Role Phone Rico Muñiz MD, Sharan Jaime Primary Care Provider Encounter Details Date Type Department Care Team (Latest Contact Info) Description 11/05/2003 Outpatient Historical [facility] [address] [place] [address] Екатерина Malone MD [address] [place] [address] HYPERLIPIDEMIA NEC/NOS (Primary Dx) Social History Tobacco Use Types Packs/Day Years Used Date Smoking Tobacco: Never Assessed Comments Unknown Sex and Gender Information Value Date Recorded Sex Assigned at Not on file Legal Sex Female 5:42 AM AUXILIARY PLANT OPERATOR Gender Identity Not on file Sexual Orientation Not on file documented as of this encounter Plan of Treatment Not on file documented as of this encounter Visit Diagnoses Diagnosis Other and unspecified hyperlipidemia- Primary documented in this encounter Care Teams Slide Fastener Repairer Relationship Specialty Start Date End Date Sharan Gómez Jr., MD [address] [place] [address] PCP - General 08/10/05 documented as of this encounter
--- OUTSIDE RECORDS SUMMARY | 2025-07-05 04:02 | XMS_ITS | Encounter Summary ---
Author Organization [facility] Address [address] [place] [address] Care Team Providers Care Needle Valve Operator Name Role Phone Rico Muñiz MD, Sharan Jaime Primary Care Provider Encounter Details Date Type Department Care Team (Latest Contact Info) Description 04/23/2002 Outpatient Historical [facility] Sharan Gómez Jr., MD [address] [place] [address] Pure hypercholesterolem (Primary Dx); HYPERCALCEMIA Social History Tobacco Use Types Packs/Day Years Used Date Smoking Tobacco: Never Assessed Comments Unknown Sex and Gender Information Value Date Recorded Sex Assigned at Not on file Legal Sex Female 5:[address] SQL DEVELOPER Gender Identity Not on file Sexual Orientation Not on file documented as of this encounter Plan of Treatment Not on file documented as of this encounter Visit Diagnoses Diagnosis Pure hypercholesterolem- Primary Pure hypercholesterolemia Hypercalcemia documented in this encounter Care Teams Needle Valve Operator Relationship Specialty Start Date End Date Sharan Gómez Jr., MD [address] [place] [address] PCP - General 08/10/05 documented as of this encounter
--- OUTSIDE RECORDS SUMMARY | 2025-07-05 04:02 | XMS_ITS | Encounter Summary ---
Author Organization [facility] Address [address] [place] [address] Care Team Providers Care Machine Preservative Filler Name Role Phone Rico Muñiz MD, Sharan Jaime Primary Care Provider Encounter Details Date Type Department Care Team (Late st Contact Info) Description 07/02/2001 Outpatient Historical [facility] Serge Arrington MD [address] [facility] [address] [place] [address] Encounter for long-term (current) use of other medications (Primary Dx); Unspecified essential hypertension Social History Tobacco Use Types Packs/Day Years Used Date Smoking Tobacco: Never Assessed Comments Unknown Sex and Gender Information Value Date Recorded Sex Assigned at Not on file Legal Sex Female 5:42 AM TANK SETTER HELPER Gender Identity Not on file Sexual Orientation Not on file documented as of this encounter Plan of Treatment Not on file documented as of this encounter Visit Diagnoses Diagnosis Encounter for long-term (current) use of other medications- Primary Unspecified essential hypertension documented in this encounter Care Teams Machine Preservative Filler Relationship Specialty Start Date End Date Sharan Gómez Jr., MD [address] [place] [address] PCP - General 08/10/05 documented as of this encounter
--- OUTSIDE RECORDS SUMMARY | 2025-07-05 04:02 | XMS_ITS | Encounter Summary ---
Author Organization [facility] Address [address] [place] [address] Care Team Providers Care Verifying Specialist Name Role Phone Rico Muñiz MD, Sharan Jaime Primary Care Provider Encounter Details Date Type Department Care Team (Latest Contact Info) Description 07/04/2005 Outpatient Historical [facility] AFaisal [facility] [place] [place] [address] Serge Arrington MD [address] [place] [address] Mitral valve disorder (Primary Dx); HYPERTENSION NOS; ABN FIND-STOOL CONTENTS-OCC BLOOD; SCREENING MAL NEOP-CERVIX Social History Tobacco Use Types Packs/Day Years Used Date Smoking Tobacco: Never Assessed Comments Unknown Sex and Gender Information Value Date Recorded Sex Assigned at Not on file Legal Sex Female 5:42 AM MANAGER IMMUNOLOGY Gender Identity Not on file Sexual Orientation Not on file documented as of this encounter Plan of Treatment Not on file documented as of this encounter Visit Diagnoses Diagnosis Mitral valve disorder- Primary Mitral valve disorders Unspecified essential hypertension Nonspecific abnormal finding in stool contents Screening for malignant neoplasm of the cervix documented in this encounter Care Teams Verifying Specialist Relationship Specialty Start Date End Date Sharan Gómez Jr., MD [address] [place] [address] PCP - General 08/10/05 documented as of this encounter
--- OUTSIDE RECORDS SUMMARY | 2025-07-05 04:02 | XMS_ITS | Encounter Summary ---
Author Organization [facility] Address [address] [place] [address] Care Team Providers Care Jukebox Checker Name Role Phone Rico Muñiz MD, Sharan Jaime Primary Care Provider Encounter Details Date Type Department Care Team (Latest Contact Info) Description 11/05/2006 Outpatient Historical [facility] [place] AFaisal Lopez [place] [place] [address] Serge Arrington MD [address] [place] [address] Mitral Valve Disorder (Primary Dx); Unspecified Essential Hypertension; Other and Unspecified Hyperlipidemia Social History Tobacco Use Types Packs/Day Years Used Date Smoking Tobacco: Never Assessed Comments Unknown Sex and Gender Information Value Date Recorded Sex Assigned at Not on file Legal Sex Female 5:42 AM DATA PROCESSING MANAGER Gender Identity Not on file Sexual Orientation Not on file documented as of this encounter Plan of Treatment Not on file documented as of this encounter Visit Diagnoses Diagnosis Mitral valve disorder- Primary Mitral valve disorders Unspecified essential hypertension Other and unspecified hyperlipidemia documented in this encounter Care Teams Jukebox Checker Relationship Specialty Start Date End Date Sharan Gómez Jr., MD [address] [place] [address] PCP - General 08/10/05 documented as of this encounter
--- OUTSIDE RECORDS SUMMARY | 2025-07-05 04:02 | XMS_ITS | Encounter Summary ---
Author Organization [facility] Address [address] [place] [address] Care Team Providers Care Distribution Superintendent Name Role Phone Rico Muñiz MD, Sharan Jaime Primary Care Provider Encounter Details Date Type Department Care Team (Latest Contact Info) Description 02/04/2007 Outpatient Historical [facility] Int Luis AFaisal Lopez [place] [place] [address] Serge Arrington MD [address] [place] [address] Unspecified Essential Hypertension (Primary Dx); Mitral Valve Disorder; Other and Unspecified Hyperlipidemia Social History Tobacco Use Types Packs/Day Years Used Date Smoking Tobacco: Never Assessed Comments Unknown Sex and Gender Information Value Date Recorded Sex Assigned at Not on file Legal Sex Female 5:42 AM PANTS PRESSER AUTOMATIC Gender Identity Not on file Sexual Orientation Not on file documented as of this encounter Plan of Treatment Not on file documented as of this encounter Visit Diagnoses Diagnosis Unspecified essential hypertension- Primary Mitral valve disorder Mitral valve disorders Other and unspecified hyperlipidemia documented in this encounter Care Teams Distribution Superintendent Relationship Specialty Start Date End Date Sharan Gómez Jr., MD [address] [place] [address] PCP - General 08/10/05 documented as of this encounter
--- OUTSIDE RECORDS SUMMARY | 2025-07-05 04:02 | XMS_ITS | Encounter Summary ---
Author Organization [facility] Address [address] [place] [address] Care Team Providers Care Railroad Car Cleaning Supervisor Name Role Phone Rico Muñiz MD, Sharan Jaime Primary Care Provider Encounter Details Date Type Department Care Team (Latest Contact Info) Description 07/02/2001 Outpatient Historical [facility] Echocardiography - National [address] [place] [phone] X358 Social History Tobacco Use Types Packs/Day Years Used Date Smoking Tobacco: Never Assessed Comments Unknown Sex and Gender Information Value Date Recorded Sex Assigned at Not on file Legal Sex Female 5:42 AM SEISMOMETER OPERATOR Gender Identity Not on file Sexual Orientation Not on file documented as of this encounter Plan of Treatment Not on file documented as of this encounter Visit Diagnoses Not on filedocumented in this encounter Care Teams Railroad Car Cleaning Supervisor Relationship Specialty Start Date End Date Sharan Gómez Jr., MD [address] [place] [address] PCP - General 08/10/05 documented as of this encounter
--- OUTSIDE RECORDS SUMMARY | 2025-07-05 04:02 | XMS_ITS | Encounter Summary ---
Author Organization [facility] Address [address] [place] [address] Care Team Providers Care Help Desk Specialist Name Role Phone Rico Muñiz MD, Sharan Jaime Primary Care Provider Encounter Details Date Type Department Care Team (Latest Contact Info) Description 08/06/2006 Outpatient Historical [facility] Int Luis AFaisal Lopez [place] [address] [place] [phone] Serge Arrington MD [address] [place] [address] Routine Gynecological Examination (Primary Dx) Social History Tobacco Use Types Packs/Day Years Used Date Smoking Tobacco: Never Assessed Comments Unknown Sex and Gender Information Value Date Recorded Sex Assigned at Not on file Legal Sex Female 5:42 AM MOBILE HOME MECHANIC Gender Identity Not on file Sexual Orientation Not on file documented as of this encounter Plan of Treatment Not on file documented as of this encounter Visit Diagnoses Diagnosis Routine gynecological examination- Primary documented in this encounter Care Teams Help Desk Specialist Relationship Specialty Start Date End Date Sharan Gómez Jr., MD [address] [place] [address] PCP - General 08/10/05 documented as of this encounter
--- OUTSIDE RECORDS SUMMARY | 2025-07-05 04:02 | XMS_ITS | Encounter Summary ---
Author Organization [facility] Address [address] [place] [address] Care Team Providers Care Staff Research Scientist Name Role Phone Rico Muñiz MD, Sharan Jaime Primary Care Provider Encounter Details Date Type Department Care Team (Latest Contact Info) Description 07/06/2006 Outpatient Historical [facility] [address] [place] [address] Jennifer Cash MD NO ADDRESS ON FILE Unspecified Essential Hypertension (Primary Dx); Other and Unspecified Hyperlipidemia; Hypercalcemia; Routine Medical Exam Social History Tobacco Use Types Packs/Day Years Used Date Smoking Tobacco: Never Assessed Comments Unknown Sex and Gender Information Value Date Recorded Sex Assigned at Not on file Legal Sex Female 5:42 AM CUSTOMER CARE PROFESSIONAL Gender Identity Not on file Sexual Orientation Not on file documented as of this encounter Plan of Treatment Not on file documented as of this encounter Visit Diagnoses Diagnosis Unspecified essential hypertension- Primary Other and unspecified hyperlipidemia Hypercalcemia Routine medical exam Routine general medical examination at a health care facility documented in this encounter Care Teams Staff Research Scientist Relationship Specialty Start Date End Date Sharan Gómez Jr., MD [address] [place] [address] PCP - General 08/10/05 documented as of this encounter
--- OUTSIDE RECORDS SUMMARY | 2025-07-05 04:02 | XMS_ITS | Encounter Summary ---
Author Organization [facility] Address [address] [place] [address] Care Team Providers Care Sql Etl Developer Name Role Phone Rico Muñiz MD, Sharan Jaime Primary Care Provider Encounter Details Date Type Department Care Team (Latest Contact Info) Description 06/24/2002 Outpatient Historical [facility] [place] [address] [place] [address] Serge Arrington MD [address] [place] [address] Mitral valve disorder (Primary Dx); CORONARY ATHEROSCLER UNSPEC VESSEL; HYPERTENSION NOS; HYPERLIPIDEMIA NEC/NOS Social History Tobacco Use Types Packs/Day Years Used Date Smoking Tobacco: Never Assessed Comments Unknown Sex and Gender Information Value Date Recorded Sex Assigned at Not on file Legal Sex Female 5:42 AM ACCOUNTS PAYABLE LEAD Gender Identity Not on file Sexual Orientation Not on file documented as of this encounter Plan of Treatment Not on file documented as of this encounter Visit Diagnoses Diagnosis Mitral valve disorder- Primary Mitral valve disorders Coronary atherosclerosis of unspecified type of vessel, [place] or graft Unspecified essential hypertension Other and unspecified hyperlipidemia documented in this encounter Care Teams Sql Etl Developer Relationship Specialty Start Date End Date Sharan Gómez Jr., MD [address] [place] [address] PCP - General 08/10/05 documented as of this encounter
--- OUTSIDE RECORDS SUMMARY | 2025-07-05 04:02 | XMS_ITS | Encounter Summary ---
Author Organization [facility] Address [address] [facility] Attn: [place] [address] Care Team Providers Care Machine Inspector Name Role Phone Rico Muñiz MD, Sharan Jaime Primary Care Provider Encounter Details Date Type Department Care Team (Late st Contact Info) Description 12/20/2001 Outpatient Historical Sharan Gómez Jr., MD [address] [place] [address] Social History Tobacco Use Types Packs/Day Years Used Date Smoking Tobacco: Never Assessed Comments Unknown Sex and Gender Information Value Date Recorded Sex Assigned at Not on file Legal Sex Female 5:42 AM TRAVEL RN Gender Identity Not on file Sexual Orientation Not on file documented as of this encounter Plan of Treatment Not on file documented as of this encounter Visit Diagnoses Not on filedocumented in this encounter Care Teams Machine Inspector Relationship Specialty Start Date End Date Sharan Gómez Jr., MD [address] [place] [address] PCP - General 08/10/05 documented as of this encounter
--- OUTSIDE RECORDS SUMMARY | 2025-07-05 04:02 | XMS_ITS | Encounter Summary ---
Author Organization [facility] Address [address] [facility] Attn: [place] [address] Care Team Providers Care Food And Beverage Operations Manager Name Role Phone Rico Muñiz MD, Sharan Jaime Primary Care Provider Encounter Details Date Type Department Care Team (Late st Contact Info) Description 08/05/2001 Outpatient Historical Sharan Gómez Jr., MD [address] [place] [address] Social History Tobacco Use Types Packs/Day Years Used Date Smoking Tobacco: Never Assessed Comments Unknown Sex and Gender Information Value Date Recorded Sex Assigned at Not on file Legal Sex Female 5:42 AM BIOPROCESS ENGINEER Gender Identity Not on file Sexual Orientation Not on file documented as of this encounter Plan of Treatment Not on file documented as of this encounter Visit Diagnoses Not on filedocumented in this encounter Care Teams Food And Beverage Operations Manager Relationship Specialty Start Date End Date Sharan Gómez Jr., MD [address] [place] [address] PCP - General 08/10/05 documented as of this encounter
--- OUTSIDE RECORDS SUMMARY | 2025-07-05 04:02 | XMS_ITS | Encounter Summary ---
Author Organization [facility] Address [address] [place] [address] Care Team Providers Care Final Coat Sprayer Name Role Phone Rico Muñiz MD, Sharan Jaime Primary Care Provider Encounter Details Date Type Department Care Team (Latest Contact Info) Description 10/27/1998 Outpatient Historical [facility] Sharan Gómez Jr., MD [address] [place] [address] Unspecified essential hypertension (Primary Dx); Chest pain, unspecified; Pneumonia, organism unspecified(486) Social History Tobacco Use Types Packs/Day Years Used Date Smoking Tobacco: Never Assessed Comments Unknown Sex and Gender Information Value Date Recorded Sex Assigned at Not on file Legal Sex Female 5:42 AM MANAGER EQUITY Gender Identity Not on file Sexual Orientation Not on file documented as of this encounter Plan of Treatment Not on file documented as of this encounter Visit Diagnoses Diagnosis Unspecified essential hypertension- Primary Chest pain, unspecified Pneumonia, organism unspecified(486) Pneumonia, organism unspecified documented in this encounter Care Teams Final Coat Sprayer Relationship Specialty Start Date End Date Sharan Gómez Jr., MD [address] [place] [address] PCP - General 08/10/05 documented as of this encounter
--- OUTSIDE RECORDS SUMMARY | 2025-07-05 04:02 | XMS_ITS | Encounter Summary ---
Author Organization [facility] Address [address] [place] [address] Care Team Providers Care Sewer Tapper Name Role Phone Rico Muñiz MD, Sharan Jaime Primary Care Provider Encounter Details Date Type Department Care Team (Latest Contact Info) Description 10/31/2001 Outpatient Historical [facility] Sharan Gómez Jr., MD [address] [place] [address] ATRIAL FIBRILLATION (CMS/HCC) (Primary Dx); AFTERCARE CARE HOME ANTICOAG USE; HEART VALVE REPLAC NEC Social History Tobacco Use Types Packs/Day Years Used Date Smoking Tobacco: Never Assessed Comments Unknown Sex and Gender Information Value Date Recorded Sex Assigned at Not on file Legal Sex Female 5:42 AM PATIENT EXPERIENCE COORDINATOR Gender Identity Not on file Sexual Orientation Not on file documented as of this encounter Plan of Treatment Not on file documented as of this encounter Visit Diagnoses Diagnosis Atrial fibrillation (CMS/HCC)- Primary Atrial fibrillation half-way (current) use of anticoagulants Long-term (current) use of anticoagulants Heart valve replaced by other means documented in this encounter Care Teams Sewer Tapper Relationship Specialty Start Date End Date Sharan Gómez Jr., MD [address] [place] [address] PCP - General 08/10/05 documented as of this encounter
--- OUTSIDE RECORDS SUMMARY | 2025-07-05 04:02 | XMS_ITS | Encounter Summary ---
Author Organization [facility] Address [address] [place] [address] Care Team Providers Care Computing Systems Mechanic Name Role Phone Rico Muñiz MD, Sharan Jaime Primary Care Provider Encounter Details Date Type Department Care Team (Latest Contact Info) Description 03/09/2003 Outpatient Historical [facility] [address] [place] [address] Екатерина Malone MD [address] [place] [address] ABN BLOOD CHEMISTRY NEC (Primary Dx) Social History Tobacco Use Types Packs/Day Years Used Date Smoking Tobacco: Never Assessed Comments Unknown Sex and Gender Information Value Date Recorded Sex Assigned at Not on file Legal Sex Female 5:42 AM WILDLAND FIRE OPERATIONS SPECIALIST Gender Identity Not on file Sexual Orientation Not on file documented as of this encounter Plan of Treatment Not on file documented as of this encounter Visit Diagnoses Diagnosis Other abnormal blood chemistry- Primary documented in this encounter Care Teams Computing Systems Mechanic Relationship Specialty Start Date End Date Sharan Gómez Jr., MD [address] [place] [address] PCP - General 08/10/05 documented as of this encounter
--- OUTSIDE RECORDS SUMMARY | 2025-07-05 04:02 | XMS_ITS | Encounter Summary ---
Author Organization [facility] Address [address] [place] [address] Care Team Providers Care Sort Worker Name Role Phone Rico Muñiz MD, Sharan Jaime Primary Care Provider Encounter Details Date Type Department Care Team (Latest Contact Info) Description 07/06/2003 Outpatient Historical [facility] [address] [place] [address] Екатерина Malone MD [address] [place] [address] AFTERCARE CARE HOME USE MEDICATN (Primary Dx) Social History Tobacco Use Types Packs/Day Years Used Date Smoking Tobacco: Never Assessed Comments Unknown Sex and Gender Information Value Date Recorded Sex Assigned at Not on file Legal Sex Female 5:42 AM ARC AIR OPERATOR Gender Identity Not on file Sexual Orientation Not on file documented as of this encounter Plan of Treatment Not on file documented as of this encounter Visit Diagnoses Diagnosis Encounter for long-term (current) use of other medications- Primary documented in this encounter Care Teams Sort Worker Relationship Specialty Start Date End Date Sharan Gómez Jr., MD [address] [place] [address] PCP - General 08/10/05 documented as of this encounter
--- OUTSIDE RECORDS SUMMARY | 2025-07-05 04:02 | XMS_ITS | Encounter Summary ---
Author Organization [facility] Address [address] [place] [address] Care Team Providers Care Router Tender Name Role Phone Rico Muñiz MD, Sharan Jaime Primary Care Provider Encounter Details Date Type Department Care Team (Late st Contact Info) Description 10/14/2020 Lab Requisition [facility] [address] [place] [address] Paulina Peterson MD [address] [place] [address] Social History Tobacco Use Types Packs/Day Years Used Date Smoking Tobacco: Never Assessed Comments Unknown Sex and Gender Information Value Date Recorded Sex Assigned at Not on file Legal Sex Female 5:42 AM TIMBER TRIMMER Gender Identity Not on file Sexual Orientation Not on file documented as of this encounter Plan of Treatment Not on file documented as of this encounter Procedures Procedure Name Priority Date/Time Associated Diagnosis Comments PROTIME-INR Routine 10/14/2020 6:16 AM TIMBER TRIMMER documented in this encounter Results * (ABNORMAL) PROTIME-INR (10/14/2020 6:16 AM TIMBER TRIMMER) PROTIME 43.3(H) 11.9 - 15.5 Seconds 10/14/2020 4:10 PM TIMBER TRIMMER [facility] INR 4.4(H) 0.8 - 1.2 10/14/2020 4:10 PM TIMBER TRIMMER [facility] Blood Collection / Unknown 10/14/2020 6:16 AM TIMBER TRIMMER 10/14/2020 3:45 PM TIMBER TRIMMER Narrative [facility] - 10/14/2020 4:10 PM TIMBER TRIMMER Expected Values for INR: DVT/PE Goal INR 2.5; range 2.0 - 3.0 Valve Replacement Tissue Goal INR 2.5; range 2.0 - 3.0 Valve Replacement Mechanical Goal INR 3.0; range 2.5 - 3.5 POST-[place] Goal INR 2.5; range 2.0 - 3.0 or Goal INR 3.0; range 2.5 - 3.5 Atrial Fibrillation Goal INR 2.5; range 2.0 - 3.0 Ischemic Stroke Goal INR 2.5; range 2.0 - 3.0 For additional information see Guidelines for Anticoagulation available from the pharmacy [facility] Paulina Peterson MD HEMATOLOGY ORDERABLES Maame smart Result [facility] [address] [place] [address] documented in this encounter Visit Diagnoses Not on filedocumented in this encounter Care Teams Router Tender Relationship Specialty Start Date End Date Sharan Gómez Jr., MD [address] [place] [address] PCP - General 08/10/05 documented as of this encounter
--- OUTSIDE RECORDS SUMMARY | 2025-07-05 04:02 | XMS_ITS | Encounter Summary ---
Author Organization [facility] Address [address] [place] [address] Care Team Providers Care Marina Manager Name Role Phone Rico Muñiz MD, Sharan Jaime Primary Care Provider Encounter Details Date Type Department Care Team (Latest Contact Info) Description 07/15/2002 Outpatient Historical [facility] Rafael Lopez Michelle [address] [place] [address] Patrick Olsen MD NO ADDRESS ON FILE POSTMENOPAUSAL BLEEDING (Primary Dx); DYSPAREUNIA; SCREENING MAL NEOP-CERVIX Social History Tobacco Use Types Packs/Day Years Used Date Smoking Tobacco: Never Assessed Comments Unknown Sex and Gender Information Value Date Recorded Sex Assigned at Not on file Legal Sex Female 5:42 AM DEMOGRAPHIC ANALYST Gender Identity Not on file Sexual Orientation Not on file documented as of this encounter Plan of Treatment Not on file documented as of this encounter Visit Diagnoses Diagnosis Postmenopausal bleeding- Primary Dyspareunia Screening for malignant neoplasm of the cervix documented in this encounter Care Teams Marina Manager Relationship Specialty Start Date End Date Sharan Gómez Jr., MD [address] [place] [address] PCP - General 08/10/05 documented as of this encounter
--- OUTSIDE RECORDS SUMMARY | 2025-07-05 04:02 | XMS_ITS | Encounter Summary ---
Author Organization [facility] Address [address] [place] [address] Care Team Providers Care Wood Cabinetmaker Name Role Phone Rico Muñiz MD, Sharan Jaime Primary Care Provider Encounter Details Date Type Department Care Team (Latest Contact Info) Description 09/05/2001 Outpatient Historical [facility] Sharan Gómez Jr., MD [address] [place] [address] OSTEOARTHROS NOS-UNSPEC (Primary Dx); OSTEOPOROSIS NOS Social History Tobacco Use Types Packs/Day Years Used Date Smoking Tobacco: Never Assessed Comments Unknown Sex and Gender Information Value Date Recorded Sex Assigned at Not on file Legal Sex Female 5:42 AM TELE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 TECHNICIAN Gender Identity Not on file Sexual Orientation Not on file documented as of this encounter Plan of Treatment Not on file documented as of this encounter Visit Diagnoses Diagnosis Osteoarthrosis, unspecified whether generalized or localized, unspecified site- Primary Osteoporosis, unspecified documented in this encounter Care Teams Wood Cabinetmaker Relationship Specialty Start Date End Date Sharan Gómez Jr., MD [address] [place] [address] PCP - General 08/10/05 documented as of this encounter
--- OUTSIDE RECORDS SUMMARY | 2025-07-05 04:02 | XMS_ITS | Encounter Summary ---
Author Organization [facility] Address [address] [facility] Attn: [place] [address] Care Team Providers Care Grease Press Helper Name Role Phone Rico Muñiz MD, Sharan Jaime Primary Care Provider Encounter Details Date Type Department Care Team (Late st Contact Info) Description 07/23/2002 Outpatient Historical Екатерина Malone MD [address] [place] [address] Social History Tobacco Use Types Packs/Day Years Used Date Smoking Tobacco: Never Assessed Comments Unknown Sex and Gender Information Value Date Recorded Sex Assigned at Not on file Legal Sex Female 5:42 AM BACK PAD INSPECTOR Gender Identity Not on file Sexual Orientation Not on file documented as of this encounter Plan of Treatment Not on file documented as of this encounter Visit Diagnoses Not on filedocumented in this encounter Care Teams Grease Press Helper Relationship Specialty Start Date End Date Sharan Gómez Jr., MD [address] [place] [address] PCP - General 08/10/05 documented as of this encounter
--- OUTSIDE RECORDS SUMMARY | 2025-07-05 04:02 | XMS_ITS | Encounter Summary ---
Author Organization [facility] Address [address] [facility] Attn: [place] [address] Care Team Providers Care Tag Marker Name Role Phone Rico Muñiz MD, Sharan Jaime Primary Care Provider Encounter Details Date Type Department Care Team (Late st Contact Info) Description 05/16/2001 Outpatient Historical Sharan Gómez Jr., MD [address] [place] [address] Social History Tobacco Use Types Packs/Day Years Used Date Smoking Tobacco: Never Assessed Comments Unknown Sex and Gender Information Value Date Recorded Sex Assigned at Not on file Legal Sex Female 5:42 AM FELT WASHING MACHINE TENDER Gender Identity Not on file Sexual Orientation Not on file documented as of this encounter Plan of Treatment Not on file documented as of this encounter Visit Diagnoses Not on filedocumented in this encounter Care Teams Tag Marker Relationship Specialty Start Date End Date Sharan Gómez Jr., MD [address] [place] [address] PCP - General 08/10/05 documented as of this encounter
--- OUTSIDE RECORDS SUMMARY | 2025-07-05 04:02 | XMS_ITS | Encounter Summary ---
Author Organization [facility] Address [address] [place] [address] Care Team Providers Care Cigarette Packing Machine Operator Name Role Phone Rico Muñiz MD, Sharan Jaime Primary Care Provider Encounter Details Date Type Department Care Team (Latest Contact Info) Description 02/16/1999 Outpatient Historical [facility] Sharan Gómez Jr., MD [address] [place] [address] Unspecified essential hypertension (Primary Dx); shelter (current) use of anticoagulants Social History Tobacco Use Types Packs/Day Years Used Date Smoking Tobacco: Never Assessed Comments Unknown Sex and Gender Information Value Date Recorded Sex Assigned at Not on file Legal Sex Female 5:42 AM PRIVATE EQUITY ANALYST Gender Identity Not on file Sexual Orientation Not on file documented as of this encounter Plan of Treatment Not on file documented as of this encounter Visit Diagnoses Diagnosis Unspecified essential hypertension- Primary shelter (current) use of anticoagulants Long-term (current) use of anticoagulants documented in this encounter Care Teams Cigarette Packing Machine Operator Relationship Specialty Start Date End Date Sharan Gómez Jr., MD [address] [place] [address] PCP - General 08/10/05 documented as of this encounter
--- OUTSIDE RECORDS SUMMARY | 2025-07-05 04:02 | XMS_ITS | Encounter Summary ---
Author Organization [facility] Address [address] [place] [address] Care Team Providers Care Farmer Cash Grain Name Role Phone Rico Muñiz MD, Sharan Jaime Primary Care Provider Encounter Details Date Type Department Care Team (Latest Contact Info) Description 06/24/2001 Outpatient Historical [facility] Imaging Services-Faisal Lopez [place] [address] [place] [address] Serge Arrington MD [address] [place] [address] Unspecified congenital anomaly of heart (Primary Dx) Social History Tobacco Use Types Packs/Day Years Used Date Smoking Tobacco: Never Assessed Comments Unknown Sex and Gender Information Value Date Recorded Sex Assigned at Not on file Legal Sex Female 5:42 AM ACTIVITIES COUNSELOR Gender Identity Not on file Sexual Orientation Not on file documented as of this encounter Plan of Treatment Not on file documented as of this encounter Visit Diagnoses Diagnosis Unspecified congenital anomaly of heart- Primary documented in this encounter Care Teams Farmer Cash Grain Relationship Specialty Start Date End Date Sharan Gómez Jr., MD [address] [place] [address] PCP - General 08/10/05 documented as of this encounter
--- OUTSIDE RECORDS SUMMARY | 2025-07-05 04:02 | XMS_ITS | Encounter Summary ---
Author Organization [facility] Address [address] Attn: [place] [address] Care Team Providers Care Respiratory Technician Name Role Phone Rico Muñiz MD, Sharan Jaime Primary Care Provider Encounter Details Date Type Department Care Team (Late st Contact Info) Description 04/23/2002 Outpatient Historical Sharan Gómez Jr., MD [address] [place] [address] Social History Tobacco Use Types Packs/Day Years Used Date Smoking Tobacco: Never Assessed Comments Unknown Sex and Gender Information Value Date Recorded Sex Assigned at Not on file Legal Sex Female 5:42 AM SHOP GIRL Gender Identity Not on file Sexual Orientation Not on file documented as of this encounter Plan of Treatment Not on file documented as of this encounter Visit Diagnoses Not on filedocumented in this encounter Care Teams Respiratory Technician Relationship Specialty Start Date End Date Sharan Gómez Jr., MD [address] [place] [address] PCP - General 08/10/05 documented as of this encounter
--- OUTSIDE RECORDS SUMMARY | 2025-07-05 04:02 | XMS_ITS | Encounter Summary ---
Author Organization [facility] Address [address] [place] [address] Care Team Providers Care Paper Folding Machine Operator Name Role Phone Rico Muñiz MD, Sharan Jaime Primary Care Provider Encounter Details Date Type Department Care Team (Latest Contact Info) Description 08/06/2006 Outpatient Historical [facility] Int Luis AFaisal Lopez [place] [address] [place] [address] Serge Arrington MD [address] [place] [address] Mitral Valve Disorder (Primary Dx); Other and Unspecified Hyperlipidemia; Screening for Malignant Neoplasm of the Cervix Social History Tobacco Use Types Packs/Day Years Used Date Smoking Tobacco: Never Assessed Comments Unknown Sex and Gender Information Value Date Recorded Sex Assigned at Not on file Legal Sex Female 5:42 AM REED FIXER Gender Identity Not on file Sexual Orientation Not on file documented as of this encounter Plan of Treatment Not on file documented as of this encounter Visit Diagnoses Diagnosis Mitral valve disorder- Primary Mitral valve disorders Other and unspecified hyperlipidemia Screening for malignant neoplasm of the cervix documented in this encounter Care Teams Paper Folding Machine Operator Relationship Specialty Start Date End Date Sharan Gómez Jr., MD [address] [place] [address] PCP - General 08/10/05 documented as of this encounter
--- OUTSIDE RECORDS SUMMARY | 2025-07-05 04:02 | XMS_ITS | Encounter Summary ---
Author Organization [facility] Address [address] [facility] Attn: [place] [address] Care Team Providers Care Cook'S Assistant Name Role Phone Rico Muñiz MD, Sharan Jaime Primary Care Provider Encounter Details Date Type Department Care Team (Late st Contact Info) Description 04/07/2002 Outpatient Historical Sharan Gómez Jr., MD [address] [place] [address] Social History Tobacco Use Types Packs/Day Years Used Date Smoking Tobacco: Never Assessed Comments Unknown Sex and Gender Information Value Date Recorded Sex Assigned at Not on file Legal Sex Female 5:42 AM ASSOCIATE PROFESSOR OF CRIMINAL JUSTICE Gender Identity Not on file Sexual Orientation Not on file documented as of this encounter Plan of Treatment Not on file documented as of this encounter Visit Diagnoses Not on filedocumented in this encounter Care Teams Cook'S Assistant Relationship Specialty Start Date End Date Sharan Gómez Jr., MD [address] [place] [address] PCP - General 08/10/05 documented as of this encounter
--- OUTSIDE RECORDS SUMMARY | 2025-07-05 04:02 | XMS_ITS | Encounter Summary ---
Author Organization [facility] Address [address] [place] [address] Care Team Providers Care Tax Accountant Name Role Phone Rico Muñiz MD, Sharan Jaime Primary Care Provider Encounter Details Date Type Department Care Team (Latest Contact Info) Description 11/28/2001 Outpatient Historical [facility] Sharan Gómez Jr., MD [address] [place] [address] URIN TRACT INFECTION NOS (Primary Dx); [facility] ANTICOAG USE Social History Tobacco Use Types Packs/Day Years Used Date Smoking Tobacco: Never Assessed Comments Unknown Sex and Gender Information Value Date Recorded Sex Assigned at Not on file Legal 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
--- OUTSIDE RECORDS SUMMARY | 2025-07-05 04:02 | XMS_ITS | Encounter Summary ---
Author Organization [facility] Address [address] [facility] Attn: [place] [address] Care Team Providers Care Candy Maker Name Role Phone Rico Muñiz MD, Sharan Jaime Primary Care Provider Encounter Details Date Type Department Care Team (Late st Contact Info) Description 07/03/2002 Outpatient Historical Екатерина Malone MD [address] [place] [address] Social History Tobacco Use Types Packs/Day Years Used Date Smoking Tobacco: Never Assessed Comments Unknown Sex and Gender Information Value Date Recorded Sex Assigned at Not on file 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
--- OUTSIDE RECORDS SUMMARY | 2025-07-05 04:02 | XMS_ITS | Encounter Summary ---
Author Organization [facility] Address [address] [place] [address] Care Team Providers Care Bakery Associate Name Role Phone Rico Muñiz MD, Sharan Jaime Primary Care Provider Encounter Details Date Type Department Care Team (Latest Contact Info) Description 12/20/2001 Outpatient Historical [facility] Sharan Gómez Jr., MD [address] [place] [address] WHEEZING (Primary Dx); HEART VALVE REPLAC NEC; [facility] ANTICOAG USE Social History Tobacco Use Types Packs/Day Years Used Date Smoking Tobacco: Never Assessed Comments Unknown Sex and Gender Information Value Date Recorded Sex Assigned at Not on file 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
--- OUTSIDE RECORDS SUMMARY | 2025-07-05 04:02 | XMS_ITS | Encounter Summary ---
Author Organization [facility] Address [address] [place] [address] Care Team Providers Care Aemt Name Role Phone Rico Muñiz MD, Sharan Jaime Primary Care Provider Encounter Details Date Type Department Care Team (Latest Contact Info) Description 06/28/2001 Outpatient Historical [facility] Sharan Gómez Jr., MD [address] [place] [address] Esophageal reflux (Primary Dx); Heart valve replaced by other means Social History Tobacco Use Types Packs/Day Years Used Date Smoking Tobacco: Never Assessed Comments Unknown Sex and Gender Information Value Date Recorded Sex Assigned at Not on file Legal Sex Female 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
--- OUTSIDE RECORDS SUMMARY | 2025-07-05 04:02 | XMS_ITS | Encounter Summary ---
Author Organization [facility] Address [address] [place] [address] Care Team Providers Care Tower Observer Name Role Phone Rico Muñiz MD, Sharan Jaime Primary Care Provider Encounter Details Date Type Department Care Team (Latest Contact Info) Description 06/24/2001 Outpatient Historical [facility] Int Luis AFaisal Lopez [place] [place] [address] Serge Arrington MD [address] [place] [address] Mitral valve disorder (Primary Dx); Unspecified essential hypertension; Other and unspecified hyperlipidemia; Dizziness and giddiness Social History Tobacco Use Types Packs/Day Years Used Date Smoking Tobacco: Never Assessed Comments Unknown Sex and Gender Information Value Date Recorded Sex Assigned at Not on file Legal Sex Female 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
--- OUTSIDE RECORDS SUMMARY | 2025-07-05 04:03 | XMS_ITS | Encounter Summary ---
Author Organization [facility] Address [address] [place] [address] Care Team Providers Care Line Service Supervisor Name Role Phone Rico Muñiz MD, Sharan Jaime Primary Care Provider Encounter Details Date Type Department Care Team (Late st Contact Info) Description 06/21/2000 Outpatient Historical [facility] Serge Arrington MD [address] [facility] [address] [place] [address] Unspecified essential hypertension (Primary Dx); Mitral valve disorder; senior living (current) use of anticoagulants Social History Tobacco Use Types Packs/Day Years Used Date Smoking Tobacco: Never Assessed Comments Unknown Sex and Gender Information Value Date Recorded Sex Assigned at Not on file Legal Sex Female 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
--- OUTSIDE RECORDS SUMMARY | 2025-07-05 04:03 | XMS_ITS | Encounter Summary ---
Author Organization [facility] Address [address] [place] [address] Care Team Providers Care Staff Climate Scientist Name Role Phone Rico Muñiz MD, Sharan Jaime Primary Care Provider Encounter Details Date Type Department Care Team (Latest Contact Info) Description 08/10/2005 Outpatient Historical [facility] [place] [address] [facility] [address] [place] [address] Bill Negron MD [address] [place] [address] ABN FIND-STOOL CONTENTS-OCC BLOOD (Primary Dx); INT HEMORRHOID W/O COMPL; ANAL FISSURE Social History Tobacco Use Types Packs/Day Years Used Date Smoking Tobacco: Never Assessed Comments Unknown Sex and Gender Information Value Date Recorded Sex Assigned at Not on file Legal 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
--- OUTSIDE RECORDS SUMMARY | 2025-07-05 04:03 | XMS_ITS | Encounter Summary ---
Author Organization [facility] Address [address] [place] [address] Care Team Providers Care Stacker Operator Name Role Phone Rico Muñiz MD, Sharan Jaime Primary Care Provider Encounter Details Date Type Department Care Team (Latest Contact Info) Description 06/21/2000 Outpatient Historical [facility] Int Luis AFaisal Lopez [place] [place] [address] Serge Arrington MD [address] [place] [address] Mitral valve disorder (Primary Dx); Unspecified essential hypertension; Unspecified gastritis and gastroduodenitis without mention of hemorrhage Social History Tobacco Use Types Packs/Day Years Used Date Smoking Tobacco: Never Assessed Comments Unknown Sex and Gender Information Value Date Recorded Sex Assigned at Not on file 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
--- OUTSIDE RECORDS SUMMARY | 2025-07-05 04:03 | XMS_ITS | Encounter Summary ---
Author Organization [facility] Address [address] [place] [address] Care Team Providers Care Instruments Sales Representative Name Role Phone Rico Muñiz MD, Sharan Jaime Primary Care Provider Encounter Details Date Type Department Care Team (Latest Contact Info) Description 03/18/1999 Outpatient Historical [facility] Sharan Gómez Jr., MD [address] [place] [address] Endocarditis, valve unspecified, unspecified cause (Primary Dx); tank terminal gauger (current) use of anticoagulants Social History Tobacco Use Types Packs/Day Years Used Date Smoking Tobacco: Never Assessed Comments Unknown Sex and Gender Information Value Date Recorded Sex Assigned at Not on file Legal Sex Female 5: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
--- OUTSIDE RECORDS SUMMARY | 2025-07-05 04:03 | XMS_ITS | Encounter Summary ---
Author Organization [facility] Address [address] [place] [address] Care Team Providers Care Environmental Remediation Engineer Name Role Phone Rico Muñiz MD, Sharan Jaime Primary Care Provider Encounter Details Date Type Department Care Team (Latest Contact Info) Description 06/20/1999 Outpatient Historical [facility] Imaging Services-Faisal Lopez [place] [address] [place] [address] Serge Arrington MD [address] [place] [address] Cough (Primary Dx) Social History Tobacco Use Types Packs/Day Years Used Date Smoking Tobacco: Never Assessed Comments Unknown Sex and Gender Information Value Date Recorded Sex Assigned at Not on file Legal 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
--- OUTSIDE RECORDS SUMMARY | 2025-07-05 04:03 | XMS_ITS | Encounter Summary ---
Author Organization [facility] Address [address] [place] [address] Care Team Providers Care Grounds Person Name Role Phone Rico Muñiz MD, Sharan Jaime Primary Care Provider Encounter Details Date Type Department Care Team (Latest Contact Info) Description 05/18/1999 Outpatient Historical [facility] Sharan Gómez Jr., MD [address] [place] [address] Osteoarthrosis, unspecified whether generalized or localized, unspecified site (Primary Dx); longterm (current) use of anticoagulants; Heart valve replaced by other means Social History Tobacco Use Types Packs/Day Years Used Date Smoking Tobacco: Never Assessed Comments Unknown Sex and Gender Information Value Date Recorded Sex Assigned at Not on file Legal Sex Female 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 Gender Identity Not on file Sexual Orientation Not on file documented as of this encounter Plan of Treatment Not on file documented as of this encounter Visit Diagnoses Diagnosis Osteoarthrosis, unspecified whether generalized or localized, unspecified site- Primary extermination supervisor (current) use of anticoagulants Long-term (current) use of anticoagulants Heart valve replaced by other means documented in this encounter Care Teams Grounds Person Relationship Specialty Start Date End Date Sharan Gómez Jr., MD [address] [place] [address] PCP - General 08/10/05 documented as of this encounter
--- OUTSIDE RECORDS SUMMARY | 2025-07-05 04:03 | XMS_ITS | Encounter Summary ---
Author Organization [facility] Address [address] [facility] Attn: [place] [address] Care Team Providers Care Lead Software Qa Engineer Name Role Phone Rico Muñiz MD, Sharan Jaime Primary Care Provider Encounter Details Date Type Department Care Team (Late st Contact Info) Description 08/16/2000 Outpatient Historical Sharan Gómez Jr., MD [address] [place] [address] Social History Tobacco Use Types Packs/Day Years Used Date Smoking Tobacco: Never Assessed Comments Unknown Sex and Gender Information Value Date Recorded Sex Assigned at Not on file Legal Sex Female 5:42 AM SUSHI CHEF Gender Identity Not on file Sexual Orientation Not on file documented as of this encounter Plan of Treatment Not on file documented as of this encounter Visit Diagnoses Not on filedocumented in this encounter Care Teams Lead Software Qa Engineer Relationship Specialty Start Date End Date Sharan Gómez Jr., MD [address] [place] [address] PCP - General 08/10/05 documented as of this encounter
--- OUTSIDE RECORDS SUMMARY | 2025-07-05 04:03 | XMS_ITS | Encounter Summary ---
Author Organization [facility] Address [address] [place] [address] Care Team Providers Care Child Protective Services Specialist Name Role Phone Rico Muñiz MD, Sharan Jaime Primary Care Provider Encounter Details Date Type Department Care Team (Latest Contact Info) Description 07/18/1999 Outpatient Historical [facility] Sharan Gómez Jr., MD [address] [place] [address] Skin sensation disturb (Primary Dx); Headache(784.0); custodial (current) use of anticoagulants Social History Tobacco Use Types Packs/Day Years Used Date Smoking Tobacco: Never Assessed Comments Unknown Sex and Gender Information Value Date Recorded Sex Assigned at Not on file Legal Sex Female 5:42 AM 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
--- OUTSIDE RECORDS SUMMARY | 2025-07-05 04:03 | XMS_ITS | Encounter Summary ---
Author Organization [facility] Address [address] [place] [address] Care Team Providers Care Oil Change Technician Name Role Phone Rico Muñiz MD, Sharan Jaime Primary Care Provider Encounter Details Date Type Department Care Team (Latest Contact Info) Description 08/03/2000 Outpatient Historical [facility] Sharan Gómez Jr., MD [address] [place] [address] Pure hypercholesterolem (Primary Dx); Other and unspecified hyperlipidemia; Dietary surveil/cosmetic counselor Social History Tobacco Use Types Packs/Day Years Used Date Smoking Tobacco: Never Assessed Comments Unknown Sex and Gender Information Value Date Recorded Sex Assigned at Not on file Legal Sex Female 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
--- OUTSIDE RECORDS SUMMARY | 2025-07-05 04:03 | XMS_ITS | Encounter Summary ---
Author Organization [facility] Address [address] [place] [address] Care Team Providers Care Gps Navigation Installer Name Role Phone Rico Muñiz MD, Sharan Jaime Primary Care Provider Encounter Details Date Type Department Care Team (Latest Contact Info) Description 10/10/1999 Outpatient Historical [facility] Sharan Gómez Jr., MD [address] [place] [address] Unspecified circulatory system disorder (Primary Dx); Unspecified essential hypertension; senior living (current) use of anticoagulants Social History Tobacco Use Types Packs/Day Years Used Date Smoking Tobacco: Never Assessed Comments Unknown Sex and Gender Information Value Date Recorded Sex Assigned at Not on file Legal 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 Gender Identity Not on file Sexual Orientation Not on file documented as of this encounter Plan of Treatment Not on file documented as of this encounter Visit Diagnoses Diagnosis Unspecified circulatory system disorder- Primary Unspecified essential hypertension 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
--- OUTSIDE RECORDS SUMMARY | 2025-07-05 04:03 | XMS_ITS | Encounter Summary ---
Author Organization [facility] Address [address] [place] [address] Care Team Providers Care Coremaking Machine Setter Name Role Phone Rico Muñiz MD, Sharan Jaime Primary Care Provider Encounter Details Date Type Department Care Team (Late st Contact Info) Description 2020 Lab Requisition [facility] [address] [place] [phone] Tabatha Lynn, [facility] [address] [place] [address] Social History Tobacco Use Types Packs/Day Years Used Date Smoking Tobacco: Never Assessed Comments Unknown Sex and Gender Information Value Date Recorded Sex Assigned at Not on file Legal Sex Female 5:42 AM OFFICE ASSISTANCE Gender Identity Not on file Sexual Orientation Not on file documented as of this encounter Plan of Treatment Not on file documented as of this encounter Procedures Procedure Name Priority Date/Time Associated Diagnosis Comments PROTIME-INR Routine 2020 6:14 AM OFFICE ASSISTANCE documented in this encounter Results * (ABNORMAL) PROTIME-INR (2020 6:14 AM OFFICE ASSISTANCE) PROTIME 23.0(H) 11.9 - 15.5 Seconds 2020 7:28 PM OFFICE ASSISTANCE [facility] INR 2.0(H) 0.8 - 1.2 2020 7:28 PM OFFICE ASSISTANCE [facility] [employer] [facility] Blood Collection / Unknown 2020 6:14 AM OFFICE ASSISTANCE 2020 7:05 PM OFFICE ASSISTANCE Narrative [facility] - 2020 7:28 PM OFFICE ASSISTANCE Expected Values for INR: DVT/PE Goal INR [...] pharmacy Aspen Mitchell, Pharm D. Tabatha Neff [facility] HEMATOLOGY ORDERABLES Final Result Performing Organization Address City/State/[facility] Co de Phone Number [facility] [address] [place] [address] documented in this encounter Visit Diagnoses Not on filedocumented in this encounter Care Teams Coremaking Machine Setter Relationship Specialty Start Date End Date Sharan Gómez Jr., MD [address] [place] [address] PCP - General 08/10/05 documented as of this encounter
--- OUTSIDE RECORDS SUMMARY | 2025-07-05 04:03 | XMS_ITS | Encounter Summary ---
Author Organization [facility] Address [address] [place] [address] Care Team Providers Care Brazer Controlled Atmospheric Furnace Name Role Phone Rico Muñiz MD, Sharan Jaime Primary Care Provider Encounter Details Date Type Department Care Team (Latest Contact Info) Description 03/03/2002 Outpatient Historical [facility] Sharan Gómez Jr., MD [address] [place] [address] HYPERTENSION NOS (Primary Dx); ENDOCARDITIS NOS; [facility] ANTICOAG USE; FAMILY HX-DIABETES MELLITUS Social History Tobacco Use Types Packs/Day Years Used Date Smoking Tobacco: Never Assessed Comments Unknown Sex and Gender Information Value Date Recorded Sex Assigned at Not on file Legal Sex Female 5:42 AM GRAIN SHOVELER Gender Identity Not on file Sexual Orientation Not on file documented as of this encounter Plan of Treatment Not on file documented as of this encounter Visit Diagnoses Diagnosis Unspecified essential hypertension- Primary Endocarditis, valve unspecified, unspecified cause intermodal customer service (current) use of anticoagulants Long-term (current) use of anticoagulants Family history of diabetes mellitus documented in this encounter Care Teams Brazer Controlled Atmospheric Furnace Relationship Specialty Start Date End Date Sharan Gómez Jr., MD [address] [place] [phone] PCP - General 08/10/05 documented as of this encounter
--- OUTSIDE RECORDS SUMMARY | 2025-07-05 04:03 | XMS_ITS | Encounter Summary ---
Author Organization [facility] Address [address] [place] [address] Care Team Providers Care Crew Attendant Name Role Phone Rico Muñiz MD, Sharan Jaime Primary Care Provider Encounter Details Date Type Department Care Team (Latest Contact Info) Description 04/01/1999 Outpatient Historical [facility] Sharan Gómez Jr., MD [address] [place] [address] Type II or unspecified type diabetes mellitus without mention of complication, not stated as uncontrolled (Primary Dx); Dietary surveil/supervisor counseling and guidance Social History Tobacco Use Types Packs/Day Years Used Date Smoking Tobacco: Never Assessed Comments Unknown Sex and Gender Information Value Date Recorded Sex Assigned at Not on file Legal Sex Female 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 Gender Identity Not on file Sexual Orientation Not on file documented as of this encounter Plan of Treatment Not on file documented as of this encounter Visit Diagnoses Diagnosis Type II or unspecified type diabetes mellitus without mention of complication, not stated as uncontrolled- Primary Dietary surveil/supervisor counseling and guidance Dietary surveillance and counseling documented in this encounter Care Teams Crew Attendant Relationship Specialty Start Date End Date Sharan Gómez Jr., MD [address] [place] [phone] PCP - General 08/10/05 documented as of this encounter
--- OUTSIDE RECORDS SUMMARY | 2025-07-05 04:03 | XMS_ITS | Encounter Summary ---
Author Organization [facility] Address [address] [place] [address] Care Team Providers Care Feed Manager Name Role Phone Rico Muñiz MD, hSaran Jaime Primary Care Provider Encounter Details Date Type Department Care Team (Late st Contact Info) Description 07/30/2000 Outpatient Historical [facility] Social History Tobacco Use Types Packs/Day Years Used Date Smoking Tobacco: Never Assessed Comments Unknown Sex and Gender Information Value Date Recorded Sex Assigned at Not on file Legal Sex Female 5:42 AM FACE BOSS Gender Identity Not on file Sexual Orientation Not on file documented as of this encounter Plan of Treatment Not on file documented as of this encounter Visit Diagnoses Not on filedocumented in this encounter Care Teams Feed Manager Relationship Specialty Start Date End Date Sharan Gómez Jr., MD [address] [place] [address] PCP - General 08/10/05 documented as of this encounter
--- OUTSIDE RECORDS SUMMARY | 2025-07-05 04:03 | XMS_ITS | Encounter Summary ---
Author Organization [facility] Address [address] [place] [address] Care Team Providers Care Parcel Wrapper Name Role Phone Rico Muñiz MD, Sharan Jaime Primary Care Provider Encounter Details Date Type Department Care Team (Latest Contact Info) Description 06/18/1998 Outpatient Historical [facility] Int Luis AFaisal Lopez [address] [place] [phone] Serge Arrington MD [address] [place] [address] Mitral valve disorder (Primary Dx); Unspecified essential hypertension; Hematuria; Routine medical exam Social History Tobacco Use Types Packs/Day Years Used Date Smoking Tobacco: Never Assessed Comments Unknown Sex and Gender Information Value Date Recorded Sex Assigned at Not on file Legal Sex Female 5:42 AM ADJUNCT LECTURER Gender Identity Not on file Sexual Orientation Not on file documented as of this encounter Plan of Treatment Not on file documented as of this encounter Visit Diagnoses Diagnosis Mitral valve disorder- Primary Mitral valve disorders Unspecified essential hypertension Hematuria Routine medical exam Routine general medical examination at a health care facility documented in this encounter Care Teams Parcel Wrapper Relationship Specialty Start Date End Date Sharan Gómez Jr., MD [address] [place] [phone] PCP - General 08/10/05 documented as of this encounter
--- OUTSIDE RECORDS SUMMARY | 2025-07-05 04:03 | XMS_ITS | Encounter Summary ---
Author Organization [facility] Address [address] [place] [address] Care Team Providers Care Court Collections Officer Name Role Phone Rico Muñiz MD, Sharan Jaime Primary Care Provider Encounter Details Date Type Department Care Team (Latest Contact Info) Description 04/18/1999 Outpatient Historical [facility] Sharan Gómez Jr., MD [address] [place] [address] Headache(784.0) (Primary Dx); Unspecified essential hypertension; extermination inspector (current) use of anticoagulants Social History Tobacco Use Types Packs/Day Years Used Date Smoking Tobacco: Never Assessed Comments Unknown Sex and Gender Information Value Date Recorded Sex Assigned at Not on file Legal Sex Female 5:42 AM RN GASTROENTEROLOGY Gender Identity Not on file Sexual Orientation Not on file documented as of this encounter Plan of Treatment Not on file documented as of this encounter Visit Diagnoses Diagnosis Headache(784.0)- Primary Headache Unspecified essential hypertension long-term (current) use of anticoagulants Long-term (current) use of anticoagulants documented in this encounter Care Teams Court Collections Officer Relationship Specialty Start Date End Date Sharan Gómez Jr., MD [address] [place] [address] PCP - General 08/10/05 documented as of this encounter
--- OUTSIDE RECORDS SUMMARY | 2025-07-05 04:03 | XMS_ITS | Encounter Summary ---
Author Organization [facility] Address [address] [place] [address] Care Team Providers Care Floating Derrick Operator Name Role Phone Rico Muñiz MD, Sharan Jaime Primary Care Provider Encounter Details Date Type Department Care Team (Latest Contact Info) Description 11/09/2000 Outpatient Historical [facility] Sharan Gómez Jr., MD [address] [place] [address] Unspecified essential hypertension (Primary Dx); Pure hypercholesterolem; Endocarditis, valve unspecified, unspecified cause; superintendent terminal (current) use of anticoagulants Social History Tobacco Use Types Packs/Day Years Used Date Smoking Tobacco: Never Assessed Comments Unknown Sex and Gender Information Value Date Recorded Sex Assigned at Not on file Legal Sex Female 5:42 AM 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 CONTROLLER Gender Identity Not on file Sexual Orientation Not on file documented as of this encounter Plan of Treatment Not on file documented as of this encounter Visit Diagnoses Diagnosis Unspecified essential hypertension- Primary Pure hypercholesterolem Pure hypercholesterolemia Endocarditis, valve unspecified, unspecified cause superintendent terminal (current) use of anticoagulants Long-term (current) use of anticoagulants documented in this encounter Care Teams Floating Derrick Operator Relationship Specialty Start Date End Date Sharan Gómez Jr., MD [address] [place] [address] PCP - General 08/10/05 documented as of this encounter
--- OUTSIDE RECORDS SUMMARY | 2025-07-05 04:03 | XMS_ITS | Encounter Summary ---
Author Organization [facility] Address [address] [place] [address] Care Team Providers Care Executive Administrator Name Role Phone Rico Muñiz MD, Sharan Jaime Primary Care Provider Encounter Details Date Type Department Care Team (Latest Contact Info) Description 12/31/2000 Outpatient Historical [facility] Medicine [place] [address] [facility] [address] [place] [phone] Larry Olvera MD Screening for malignant neoplasm of the rectum (Primary Dx) Social History Tobacco Use Types Packs/Day Years Used Date Smoking Tobacco: Never Assessed Comments Unknown Sex and Gender Information Value Date Recorded Sex Assigned at Not on file Legal Sex Female 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
--- OUTSIDE RECORDS SUMMARY | 2025-07-05 04:03 | XMS_ITS | Encounter Summary ---
Author Organization [facility] Address [address] [place] [address] Care Team Providers Care Die Sinking Machine Operator Name Role Phone Rico Muñiz MD, Sharan Jaime Primary Care Provider Encounter Details Date Type Department Care Team (Latest Contact Info) Description 02/03/2002 Outpatient Historical [facility] Sharan Gómez Jr., MD [address] [place] [address] HEART VALVE REPLAC NEC (Primary Dx); [facility] ANTICOAG USE Social History Tobacco Use Types Packs/Day Years Used Date Smoking Tobacco: Never Assessed Comments Unknown Sex and Gender Information Value Date Recorded Sex Assigned at Not on file Legal Sex Female 5: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
--- OUTSIDE RECORDS SUMMARY | 2025-07-05 04:03 | XMS_ITS | Encounter Summary ---
Author Organization [facility] Address [address] [facility] Attn: [place] [address] Care Team Providers Care Computer Artist Name Role Phone Rico Muñiz MD, Sharan Jaime Primary Care Provider Encounter Details Date Type Department Care Team (Late st Contact Info) Description 12/26/1999 Outpatient Historical Sharan Gómez Jr., MD [address] [place] [address] Social History Tobacco Use Types Packs/Day Years Used Date Smoking Tobacco: Never Assessed Comments Unknown Sex and Gender Information Value Date Recorded Sex Assigned at Not on file Legal Sex Female 5:42 AM 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
--- OUTSIDE RECORDS SUMMARY | 2025-07-05 04:03 | XMS_ITS | Encounter Summary ---
Author Organization [facility] Address [address] [place] [address] Care Team Providers Care Pump Tender Name Role Phone Rico Muñiz MD, Sharan Jaime Primary Care Provider Encounter Details Date Type Department Care Team (Latest Contact Info) Description 08/16/2000 Outpatient Historical [facility] Sharan Gómez Jr., MD [address] [place] [address] Pure hypercholesterolem (Primary Dx); Unspecified essential hypertension; Encounter for long-term (current) use of other medications Social History Tobacco Use Types Packs/Day Years Used Date Smoking Tobacco: Never Assessed Comments Unknown Sex and Gender Information Value Date Recorded Sex Assigned at Not on file Legal Sex Female 5:42 AM JIG FITTER Gender Identity Not on file Sexual Orientation Not on file documented as of this encounter Plan of Treatment Not on file documented as of this encounter Visit Diagnoses Diagnosis Pure hypercholesterolem- Primary Pure hypercholesterolemia Unspecified essential hypertension Encounter for long-term (current) use of other medications documented in this encounter Care Teams Pump Tender Relationship Specialty Start Date End Date Sharan Gómez Jr., MD [address] [place] [address] PCP - General 08/10/05 documented as of this encounter
--- OUTSIDE RECORDS SUMMARY | 2025-07-05 04:03 | XMS_ITS | Clinical Summary ---
Author Organization [facility] Address [address] [place] [address] Phone Care Team Providers Care Vallez Filter Operator Name Role Phone Rico Muñiz MD, Sharan Jaime Primary Care Provider Immunizations Immunization Administration Dates Next Due (PNEUMOVAX 23)(50 YRS UP) PN EUMOCOCCAL POLYSACCHARIDE (PPV23) 0.5 ML, IM 06/26/2003 Social History Tobacco Use Types Packs/Day Years Used Date Smoking Tobacco: Never Assessed Comments Unknown Sex and Gender Information Value Date Recorded Sex Assigned at Not on file Legal Sex Female 5:42 AM GAME BIRD FARMER Gender Identity Not on file Sexual [...] AND BLUE [place]ID [place] Care Teams Vallez Filter Operator Relationship Specialty Start Date End Date Sharan Gómez Jr., MD [address] [place] [address] PCP - General 08/10/05
--- OUTSIDE RECORDS SUMMARY | 2025-07-05 04:03 | XMS_ITS | Encounter Summary ---
Author Organization [facility] Address [address] [facility] Attn: [place] [address] Care Team Providers Care Director Search Name Role Phone Rico Muñiz MD, Sharan Jaime Primary Care Provider Encounter Details Date Type Department Care Team (Late st Contact Info) Description 02/15/2001 Outpatient Historical Sharan Gómez Jr., MD [address] [place] [address] Social History Tobacco Use Types Packs/Day Years Used Date Smoking Tobacco: Never Assessed Comments Unknown Sex and Gender Information Value Date Recorded Sex Assigned at Not on file Legal Sex Female 5:42 AM REGISTERED ACCOUNT ADMINISTRATOR Gender Identity Not on file Sexual Orientation Not on file documented as of this encounter Plan of Treatment Not on file documented as of this encounter Visit Diagnoses Not on filedocumented in this encounter Care Teams Director Search Relationship Specialty Start Date End Date Sharan Gómez Jr., MD [address] [place] [address] PCP - General 08/10/05 documented as of this encounter
--- OUTSIDE RECORDS SUMMARY | 2025-07-05 04:03 | XMS_ITS | Encounter Summary ---
Author Organization [facility] Address [address] [facility] Attn: [place] [address] Care Team Providers Care Transplant Nurse Name Role Phone Rico Muñiz MD, Sharan Jaime Primary Care Provider Encounter Details Date Type Department Care Team (Late st Contact Info) Description 01/04/2001 Outpatient Historical Sharan Gómez Jr., MD [address] [place] [address] Social History Tobacco Use Types Packs/Day Years Used Date Smoking Tobacco: Never Assessed Comments Unknown Sex and Gender Information Value Date Recorded Sex Assigned at Not on file Legal Sex Female 5: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
--- OUTSIDE RECORDS SUMMARY | 2025-07-05 04:03 | XMS_ITS | Encounter Summary ---
Author Organization [facility] Address [address] [place] [address] Care Team Providers Care Manager Hematology Name Role Phone Rico Muñiz MD, Sharan Jaime Primary Care Provider Encounter Details Date Type Department Care Team (Latest Contact Info) Description 10/26/1999 Outpatient Historical [facility] Sharan Gómez Jr., MD [address] [place] [address] Endocarditis, valve unspecified, unspecified cause (Primary Dx); Osteoporosis, unspecified Social History Tobacco Use Types Packs/Day Years Used Date Smoking Tobacco: Never Assessed Comments Unknown Sex and Gender Information Value Date Recorded Sex Assigned at Not on file Legal Sex Female 5: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
--- OUTSIDE RECORDS SUMMARY | 2025-07-05 04:03 | XMS_ITS | Encounter Summary ---
Author Organization [facility] Address [address] [place] [address] Care Team Providers Care Nurse Discharge Planner Name Role Phone Rico Muñiz MD, Sharan Jaime Primary Care Provider Encounter Details Date Type Department Care Team (Latest Contact Info) Description 02/15/2001 Outpatient Historical [facility] Sharan Gómez Jr., MD [address] [place] [address] Unspecified essential hypertension (Primary Dx); Heart valve replaced by other means Social History Tobacco Use Types Packs/Day Years Used Date Smoking Tobacco: Never Assessed Comments Unknown Sex and Gender Information Value Date Recorded Sex Assigned at Not on file Legal Sex Female 5:42 AM BRICK 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
--- OUTSIDE RECORDS SUMMARY | 2025-07-05 04:03 | XMS_ITS | Encounter Summary ---
Author Organization [facility] Address [address] [place] [address] Care Team Providers Care Diploma Pharmacy Technician Name Role Phone Rico Muñiz MD, Sharan Jaime Primary Care Provider Encounter Details Date Type Department Care Team (Latest Contact Info) Description 06/20/1999 Outpatient Historical [facility] Echocardiography - National [address] [place] [address] X358 Serge Arrington MD [address] [address] Painful respiration (Primary Dx); Precordial pain; Other dyspnea and respiratory abnormality Social History Tobacco Use Types Packs/Day Years Used Date Smoking Tobacco: Never Assessed Comments Unknown Sex and Gender Information Value Date Recorded Sex Assigned at Not on file Legal Sex Female 5:42 AM PAYROLL ASSISTANT Gender Identity Not on file Sexual Orientation Not on file documented as of this encounter Plan of Treatment Not on file documented as of this encounter Visit Diagnoses Diagnosis Painful respiration- Primary Precordial pain Other dyspnea and respiratory abnormality documented in this encounter Care Teams Diploma Pharmacy Technician Relationship Specialty Start Date End Date Sharan Gómez Jr., MD [address] [place] [address] PCP - General 08/10/05 documented as of this encounter
--- OUTSIDE RECORDS SUMMARY | 2025-07-05 04:03 | XMS_ITS | Encounter Summary ---
Author Organization [facility] Address [address] [place] [address] Care Team Providers Care Valve Machine Operator Name Role Phone Rico Muñiz MD, Sharan Jaime Primary Care Provider Encounter Details Date Type Department Care Team (Latest Contact Info) Description 05/24/2000 Outpatient Historical [facility] Sharan Gómez Jr., MD [address] [place] [address] Unspecified essential hypertension (Primary Dx); Osteoporosis, unspecified Social History Tobacco Use Types Packs/Day Years Used Date Smoking Tobacco: Never Assessed Comments Unknown Sex and Gender Information Value Date Recorded Sex Assigned at Not on file Legal Sex Female 5:42 AM DIRECTOR PHARMACOLOGY Gender Identity Not on file Sexual Orientation Not on file documented as of this encounter Plan of Treatment Not on file documented as of this encounter Visit Diagnoses Diagnosis Unspecified essential hypertension- Primary Osteoporosis, unspecified documented in this encounter Care Teams Valve Machine Operator Relationship Specialty Start Date End Date Sharan Gómez Jr., MD [address] [place] [address] PCP - General 08/10/05 documented as of this encounter
--- OUTSIDE RECORDS SUMMARY | 2025-07-05 04:03 | XMS_ITS | Encounter Summary ---
Author Organization [facility] Address [address] [place] [address] Care Team Providers Care Metal Punch Press Operator Name Role Phone Rico Muñiz MD, Sharan Jaime Primary Care Provider Encounter Details Date Type Department Care Team (Latest Contact Info) Description 02/29/2000 Outpatient Historical [facility] Sharan Gómez Jr., MD [address] [place] [address] Pure hypercholesterolem (Primary Dx); Heart valve replaced by other means; Osteoporosis, unspecified; rn long term care (current) use of anticoagulants Social History Tobacco Use Types Packs/Day Years Used Date Smoking Tobacco: Never Assessed Comments Unknown Sex and Gender Information Value Date Recorded Sex Assigned at Not on file Legal Sex Female 5:42 AM SURGICAL PROCESSOR Gender Identity Not on file Sexual Orientation Not on file documented as of this encounter Plan of Treatment Not on file documented as of this encounter Visit Diagnoses Diagnosis Pure hypercholesterolem- Primary Pure hypercholesterolemia Heart valve replaced by other means Osteoporosis, unspecified shelter (current) use of anticoagulants Long-term (current) use of anticoagulants documented in this encounter Care Teams Metal Punch Press Operator Relationship Specialty Start Date End Date Sharan Gómez Jr., MD [address] [place] [phone] PCP - General 08/10/05 documented as of this encounter
--- OUTSIDE RECORDS SUMMARY | 2025-07-05 04:03 | XMS_ITS | Encounter Summary ---
Author Organization [facility] Address [address] [place] [address] Care Team Providers Care Household Manager Name Role Phone Rico Muñiz MD, Sharan Jaime Primary Care Provider Encounter Details Date Type Department Care Team (Latest Contact Info) Description 12/21/2000 Outpatient Historical [facility] Sharan Gómez Jr., MD [address] [place] [address] Pure hypercholesterolem (Primary Dx); Other and unspecified hyperlipidemia; Esophageal reflux; penitentiary (current) use of anticoagulants Social History Tobacco Use Types Packs/Day Years Used Date Smoking Tobacco: Never Assessed Comments Unknown Sex and Gender Information Value Date Recorded Sex Assigned at Not on file Legal Sex Female 5:42 AM MEDICAL BILLING SPECIALIST Gender Identity Not on file Sexual Orientation Not on file documented as of this encounter Plan of Treatment Not on file documented as of this encounter Visit Diagnoses Diagnosis Pure hypercholesterolem- Primary Pure hypercholesterolemia Other and unspecified hyperlipidemia Esophageal reflux penitentiary (current) use of anticoagulants Long-term (current) use of anticoagulants documented in this encounter Care Teams Household Manager Relationship Specialty Start Date End Date Sharan Gómez Jr., MD [address] [place] [phone] PCP - General 08/10/05 documented as of this encounter
--- OUTSIDE RECORDS SUMMARY | 2025-07-05 04:03 | XMS_ITS | Encounter Summary ---
Author Organization [facility] Address [address] [place] [address] Care Team Providers Care Product Marketing Engineer Name Role Phone Rico Muñiz MD, Sharan Jaime Primary Care Provider Encounter Details Date Type Department Care Team (Latest Contact Info) Description 09/12/2000 Outpatient Historical [facility] Sharan Gómez Jr., MD [address] [place] [address] Other and unspecified hyperlipidemia (Primary Dx); Other nonspecific finding on examination of urine; Personal history of other disorder of urinary system; terminal press operator (current) use of anticoagulants Social History Tobacco Use Types Packs/Day Years Used Date Smoking Tobacco: Never Assessed Comments Unknown Sex and Gender Information Value Date Recorded Sex Assigned at Not on file Legal Sex Female 5:42 AM STONEMASON Gender Identity Not on file Sexual Orientation Not on file documented as of this encounter Plan of Treatment Not on file documented as of this encounter Visit Diagnoses Diagnosis Other and unspecified hyperlipidemia- Primary Other nonspecific finding on examination of urine Personal history of other disorder of urinary system terminal press operator (current) use of anticoagulants Long-term (current) use of anticoagulants documented in this encounter Care Teams Product Marketing Engineer Relationship Specialty Start Date End Date Sharan Gómez Jr., MD [address] [place] [address] PCP - General 08/10/05 documented as of this encounter
--- OUTSIDE RECORDS SUMMARY | 2025-07-05 04:03 | XMS_ITS | Encounter Summary ---
Author Organization [facility] Address [address] [place] [address] Care Team Providers Care Ballroom Dance Instructor Name Role Phone Rico Muñiz MD, Sharan Jaime Primary Care Provider Encounter Details Date Type Department Care Team (Late st Contact Info) Description 10/25/2020 Lab Requisition [facility] Laboratory Services [address] [place] [address] Paulina Peterson MD [address] [place] [address] Social History Tobacco Use Types Packs/Day Years Used Date Smoking Tobacco: Never Assessed Comments Unknown Sex and Gender Information Value Date Recorded Sex Assigned at Not on file Legal Sex Female 5:42 AM CHIEF PSYCHOLOGY Gender Identity Not on file Sexual Orientation Not on file documented as of this encounter Plan of Treatment Not on file documented as of this encounter Procedures Procedure Name Priority Date/Time Associated Diagnosis Comments PROTIME-INR Routine 10/25/2020 5:18 AM CHIEF PSYCHOLOGY documented in this encounter Results * (ABNORMAL) PROTIME-INR (10/25/2020 5:18 AM CHIEF PSYCHOLOGY) PROTIME 34.3(H) 11.9 - 15.5 Seconds 10/25/2020 7:01 PM CHIEF PSYCHOLOGY [facility] INR 3.3(H) 0.8 - 1.2 10/25/2020 7:[address] [facility] Blood Collection / Unknown 10/25/2020 5:18 AM CHIEF PSYCHOLOGY 10/25/2020 6:44 PM [address] [facility] - 10/25/2020 7:01 PM CHIEF PSYCHOLOGY Expected Values for INR: DVT/PE Goal INR 2.5; range 2.0 - 3.0 Valve Replacement Tissue Goal INR 2.5; range 2.0 - 3.0 Valve Replacement Mechanical Goal INR 3.0; range 2.5 - 3.5 POST-CO Goal INR 2.5; range 2.0 - 3.0 or Goal INR 3.0; range 2.5 - 3.5 Atrial Fibrillation Goal INR 2.5; range 2.0 - 3.0 Ischemic Stroke Goal INR 2.5; range 2.0 - 3.0 For additional information see Guidelines for Anticoagulation available from the pharmacy [facility] Paulina Peterson MD HEMATOLOGY ORDERABLES Maame smart Result [facility] [address] [place] [address] documented in this encounter Visit Diagnoses Not on filedocumented in this encounter Care Teams Ballroom Dance Instructor Relationship Specialty Start Date End Date Sharan Gómez Jr., MD [address] [place] [phone] PCP - General 08/10/05 documented as of this encounter
--- OUTSIDE RECORDS SUMMARY | 2025-07-05 04:03 | XMS_ITS | Encounter Summary ---
Author Organization [facility] Address [address] [place] [address] Care Team Providers Care Anode Builder Name Role Phone Rico Muñiz MD, Sharan Jaime Primary Care Provider Encounter Details Date Type Department Care Team (Latest Contact Info) Description 12/26/1999 Outpatient Historical [facility] Sharan Gómez Jr., MD [address] [place] [address] ASCVD (Primary Dx); Esophageal reflux; Unspecified essential hypertension; long-term (current) use of anticoagulants Social History Tobacco Use Types Packs/Day Years Used Date Smoking Tobacco: Never Assessed Comments Unknown Sex and Gender Information Value Date Recorded Sex Assigned at Not on file Legal Sex Female 5:42 AM ASSOCIATE PROFESSOR COMPUTER SCIENCE Gender Identity Not on file Sexual Orientation Not on file documented as of this encounter Plan of Treatment Not on file documented as of this encounter Visit Diagnoses Diagnosis ASCVD- Primary Unspecified cardiovascular disease Esophageal reflux Unspecified essential hypertension terminal makeup operator (current) use of anticoagulants Long-term (current) use of anticoagulants documented in this encounter Care Teams Anode Builder Relationship Specialty Start Date End Date Sharan Gómez Jr., MD [address] [place] [address] PCP - General 08/10/05 documented as of this encounter
--- OUTSIDE RECORDS SUMMARY | 2025-07-05 04:03 | XMS_ITS | Encounter Summary ---
Author Organization [facility] Address [address] [place] [address] Care Team Providers Care Sawmill Moulder Operator Name Role Phone Rico Muñiz MD, Sharan Jaime Primary Care Provider Encounter Details Date Type Department Care Team (Latest Contact Info) Description 06/28/2000 Outpatient Historical [facility] Sharan Gómez Jr., MD [address] [place] [address] Pure hypercholesterolem (Primary Dx); Hypopotassemia; Heart valve replaced by other means Social History Tobacco Use Types Packs/Day Years Used Date Smoking Tobacco: Never Assessed Comments Unknown Sex and Gender Information Value Date Recorded Sex Assigned at Not on file Legal Sex Female 5:42 AM BRAND SALES MANAGER Gender Identity Not on file Sexual Orientation Not on file documented as of this encounter Plan of Treatment Not on file documented as of this encounter Visit Diagnoses Diagnosis Pure hypercholesterolem- Primary Pure hypercholesterolemia Hypopotassemia Heart valve replaced by other means documented in this encounter Care Teams Sawmill Moulder Operator Relationship Specialty Start Date End Date Sharan Gómez Jr., MD [address] [place] [address] PCP - General 08/10/05 documented as of this encounter
--- OUTSIDE RECORDS SUMMARY | 2025-07-05 04:03 | XMS_ITS | Encounter Summary ---
Author Organization [facility] Address [address] [facility] Attn: [place] [address] Care Team Providers Care Agricultural Equipment Design Engineer Name Role Phone Rico Muñiz MD, Sharan Jaime Primary Care Provider Encounter Details Date Type Department Care Team (Late st Contact Info) Description 11/09/2000 Outpatient Historical Sharan Gómez Jr., MD [address] [place] [address] Social History Tobacco Use Types Packs/Day Years Used Date Smoking Tobacco: Never Assessed Comments Unknown Sex and Gender Information Value Date Recorded Sex Assigned at Not on file Legal Sex Female 5:42 AM NUCLEAR INSTRUCTOR Gender Identity Not on file Sexual Orientation Not on file documented as of this encounter Plan of Treatment Not on file documented as of this encounter Visit Diagnoses Not on filedocumented in this encounter Care Teams Agricultural Equipment Design Engineer Relationship Specialty Start Date End Date Sharan Gómez Jr., MD [address] [place] [address] PCP - General 08/10/05 documented as of this encounter
--- OUTSIDE RECORDS SUMMARY | 2025-07-05 04:03 | XMS_ITS | Encounter Summary ---
Author Organization [facility] Address [address] [place] [address] Care Team Providers Care Design Engineering Manager Name Role Phone Rico Muñiz MD, Sharan Jaime Primary Care Provider Encounter Details Date Type Department Care Team (Late st Contact Info) Description 10/16/2020 Lab Requisition [facility] General Laboratory Services [place] [address] [place] [phone] Mtnv, External Provider [address] [facility] [address] [place] [address] Social History Tobacco Use Types Packs/Day Years Used Date Smoking Tobacco: Never Assessed Comments Unknown Sex and Gender Information Value Date Recorded Sex Assigned at Not on file Legal Sex Female 5:42 AM WATER WELL DRILLER Gender Identity Not on file Sexual Orientation Not on file documented as of this encounter Plan of Treatment Not on file documented as of this encounter Procedures Procedure Name Priority Date/Time Associated Diagnosis Comments PROTIME-INR Routine 10/16/2020 10:20 AM WATER WELL DRILLER documented in this encounter Results * (ABNORMAL) PROTIME-INR (10/16/2020 10:20 AM WATER WELL DRILLER) PROTIME 42.0(H) 12.0 - 14.4 Seconds 10/16/2020 12:05 PM WATER WELL DRILLER [facility] INR 4.7(H) 0.8 - 1.2 10/16/2020 12:05 PM WATER WELL DRILLER [facility] Blood 10/16/2020 10:2 0 AM WATER WELL DRILLER 10/16/2020 11:47 AM WATER WELL DRILLER us External Provider Mtnv HEMATOLOGY ORDERABLES Fin al Result [facility] CLIA # [id number] [address] [place] [address] documented in this encounter Visit Diagnoses Not on filedocumented in this encounter Care Teams Design Engineering Manager Relationship Specialty Start Date End Date Sharan Gómez Jr., MD [address] [place] [address] PCP - General 08/10/05 documented as of this encounter
--- OUTSIDE RECORDS SUMMARY | 2025-07-05 04:03 | XMS_ITS | Encounter Summary ---
Author Organization [facility] Address [address] [facility] Attn: [place] [address] Care Team Providers Care Tanyard Worker Name Role Phone Rico Muñiz MD, Sharan Jaime Primary Care Provider Encounter Details Date Type Department Care Team (Late st Contact Info) Description 05/24/2000 Outpatient Historical Sharan Gómez Jr., MD [address] [place] [address] Social History Tobacco Use Types Packs/Day Years Used Date Smoking Tobacco: Never Assessed Comments Unknown Sex and Gender Information Value Date Recorded Sex Assigned at Not on file Legal Sex Female 5:42 AM PROJECT ENGINEERING DIRECTOR Gender Identity Not on file Sexual Orientation Not on file documented as of this encounter Plan of Treatment Not on file documented as of this encounter Visit Diagnoses Not on filedocumented in this encounter Care Teams Tanyard Worker Relationship Specialty Start Date End Date Sharan Gómez Jr., MD [address] [place] [address] PCP - General 08/10/05 documented as of this encounter
--- OUTSIDE RECORDS SUMMARY | 2025-07-05 04:03 | XMS_ITS | Encounter Summary ---
Author Organization [facility] Address [address] [place] [address] Care Team Providers Care Storage Battery Inspector And Tester Name Role Phone Rico Muñiz MD, Sharan Jaime Primary Care Provider Encounter Details Date Type Department Care Team (Latest Contact Info) Description 08/31/2000 Outpatient Historical [facility] Sharan Gómez Jr., MD [address] [place] [address] Pure hypercholesterolem (Primary Dx); Dietary surveil/general counselor Social History Tobacco Use Types Packs/Day Years Used Date Smoking Tobacco: Never Assessed Comments Unknown Sex and Gender Information Value Date Recorded Sex Assigned at Not on file Legal Sex Female 5:42 AM SLATE SPLITTING SUPERVISOR Gender Identity Not on file Sexual Orientation Not on file documented as of this encounter Plan of Treatment Not on file documented as of this encounter Visit Diagnoses Diagnosis Pure hypercholesterolem- Primary Pure hypercholesterolemia Dietary surveil/general counselor Dietary surveillance and counseling documented in this encounter Care Teams Storage Battery Inspector And Tester Relationship Specialty Start Date End Date Sharan Gómez Jr., MD [address] [place] [address] PCP - General 08/10/05 documented as of this encounter
--- OUTSIDE RECORDS SUMMARY | 2025-07-05 04:03 | XMS_ITS | Encounter Summary ---
Author Organization [facility] Address [address] [place] [address] Care Team Providers Care Brush Stainer Name Role Phone Rico Muñiz MD, Sharan Jaime Primary Care Provider Encounter Details Date Type Department Care Team (Latest Contact Info) Description 11/25/1999 Outpatient Historical [facility] Sharan Gómez Jr., MD [address] [place] [address] Epistaxis (Primary Dx); assistant terminal manager (current) use of anticoagulants Social History Tobacco Use Types Packs/Day Years Used Date Smoking Tobacco: Never Assessed Comments Unknown Sex and Gender Information Value Date Recorded Sex Assigned at Not on file Legal Sex Female 5:42 AM CARE SUPPORT REPRESENTATIVE Gender Identity Not on file Sexual Orientation Not on file documented as of this encounter Plan of Treatment Not on file documented as of this encounter Visit Diagnoses Diagnosis Epistaxis- Primary penitentiary (current) use of anticoagulants Long-term (current) use of anticoagulants documented in this encounter Care Teams Brush Stainer Relationship Specialty Start Date End Date Sharan Gómez Jr., MD [address] [place] [address] PCP - General 08/10/05 documented as of this encounter
--- OUTSIDE RECORDS SUMMARY | 2025-07-05 04:03 | XMS_ITS | Encounter Summary ---
Author Organization [facility] Address [address] [place] [address] Care Team Providers Care Network Security Consultant Name Role Phone Rico Muñiz MD, Sharan Jaime Primary Care Provider Encounter Details Date Type Department Care Team (Latest Contact Info) Description 04/12/2001 Outpatient Historical [facility] Sharan Gómez Jr., MD [address] [place] [address] Osteoarthrosis, unspecified whether generalized or localized, unspecified site (Primary Dx); Heart valve replaced by other means; intermission coordinator (current) use of anticoagulants Social History Tobacco Use Types Packs/Day Years Used Date Smoking Tobacco: Never Assessed Comments Unknown Sex and Gender Information Value Date Recorded Sex Assigned at Not on file Legal Sex Female 5:42 AM CONSTRUCTION DRILLER Gender Identity Not on file Sexual Orientation Not on file documented as of this encounter Plan of Treatment Not on file documented as of this encounter Visit Diagnoses Diagnosis Osteoarthrosis, unspecified whether generalized or localized, unspecified site- Primary Heart valve replaced by other means correction (current) use of anticoagulants Long-term (current) use of anticoagulants documented in this encounter Care Teams Network Security Consultant Relationship Specialty Start Date End Date Sharan Gómez Jr., MD [address] [place] [address] PCP - General 08/10/05 documented as of this encounter
--- OUTSIDE RECORDS SUMMARY | 2025-07-05 04:03 | XMS_ITS | Encounter Summary ---
Author Organization [facility] Address [address] [place] [address] Care Team Providers Care Signal Processing Engineer Name Role Phone Rico Muñiz MD, Sharan Jaime Primary Care Provider Encounter Details Date Type Department Care Team (Late st Contact Info) Description 07/26/[address] [facility] Cardiology- [place] [address] [place] [phone] [place] [facility] [address] [facility] [place] [address] [place] [address] Pain in limb (Primary Dx); Heart valve replaced by other means Social History Tobacco Use Types Packs/Day Years Used Date Smoking Tobacco: Never Assessed Comments Unknown Sex and Gender Information Value Date Recorded Sex Assigned at Not on file Legal Sex Female 5:42 AM WAXING 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 HELPER Gender Identity Not on file Sexual Orientation Not on file documented as of this encounter Plan of Treatment Not on file documented as of this encounter Visit Diagnoses Diagnosis Pain in limb- Primary Pain in soft tissues of limb Heart valve replaced by other means documented in this encounter Care Teams Signal Processing Engineer Relationship Specialty Start Date End Date Sharan Gómez Jr., MD [address] [place] [address] PCP - General 08/10/05 documented as of this encounter
--- OUTSIDE RECORDS SUMMARY | 2025-07-05 04:03 | XMS_ITS | Encounter Summary ---
Author Organization [facility] Address [address] [place] [address] Care Team Providers Care Technical Support Assistant Name Role Phone Rico Muñiz MD, Sharan Jaime Primary Care Provider Encounter Details Date Type Department Care Team (Late st Contact Info) Description 10/18/2020 Lab Requisition [facility] [address] [place] [address] Tabatha Lynn, [facility] [address] [place] [address] Social History Tobacco Use Types Packs/Day Years Used Date Smoking Tobacco: Never Assessed Comments Unknown Sex and Gender Information Value Date Recorded Sex Assigned at Not on file Legal Sex Female 5:42 AM PARTS ANALYST Gender Identity Not on file Sexual Orientation Not on file documented as of this encounter Plan of Treatment Not on file documented as of this encounter Procedures Procedure Name Priority Date/Time Associated Diagnosis Comments PROTIME-INR Routine 10/18/2020 6:34 AM PARTS ANALYST documented in this encounter Results * (ABNORMAL) PROTIME-INR (10/18/2020 6:34 AM PARTS ANALYST) PROTIME 34.1(H) 11.9 - 15.5 Seconds 10/18/2020 5:19 PM PARTS ANALYST [facility] INR 3.2(H) 0.8 - 1.2 10/18/2020 5:19 PM PARTS ANALYST [facility] Blood Collection / Unknown 10/18/2020 6:34 AM PARTS ANALYST 10/18/2020 4:57 PM PARTS ANALYST Narrative [facility] - 10/18/2020 5:19 PM PARTS ANALYST Expected Values for INR: DVT/PE Goal INR 2.5; range 2.0 - 3.0 Valve Replacement Tissue Goal INR 2.5; range 2.0 - 3.0 Valve Replacement Mechanical Goal INR 3.0; range 2.5 - 3.5 POST-OK Goal INR 2.5; range 2.0 - 3.0 or Goal INR 3.0; range 2.5 - 3.5 Atrial Fibrillation Goal INR 2.5; range 2.0 - 3.0 Ischemic Stroke Goal INR 2.5; range 2.0 - 3.0 For additional information see Guidelines for Anticoagulation available from the pharmacy Aspen Mitchell, Pharm D. Tabatha Neff BLAST [facility] ORDERABLES Final Result [facility] [address] [place] [address] documented in this encounter Visit Diagnoses Not on filedocumented in this encounter Care Teams Technical Support Assistant Relationship Specialty Start Date End Date Sharan Gómez Jr., MD [address] [place] [address] PCP - General 08/10/05 documented as of this encounter
--- OUTSIDE RECORDS SUMMARY | 2025-07-05 04:03 | XMS_ITS | Encounter Summary ---
Author Organization [facility] Address [address] [place] [address] Care Team Providers Care Lighting Technician Name Role Phone Rico Muñiz MD, Sharan Jaime Primary Care Provider Encounter Details Date Type Department Care Team (Latest Contact Info) Description 04/07/2002 Outpatient Historical [facility] Sharan Gómez Jr., MD [address] [place] [address] ENDOCARDITIS NOS (Primary Dx); DIABETES UNCOMPL ADULT-TYPE II (CMS/HCC); HYPERTENSION NOS; AFTERCARE ALF ANTICOAG USE Social History Tobacco Use Types Packs/Day Years Used Date Smoking Tobacco: Never Assessed Comments Unknown Sex and Gender Information Value Date Recorded Sex Assigned at Not on file Legal Sex Female 5:42 AM FOOD AND BEVERAGE SERVICE MANAGER Gender Identity Not on file Sexual Orientation Not on file documented as of this encounter Plan of Treatment Not on file documented as of this encounter Visit Diagnoses Diagnosis Endocarditis, valve unspecified, unspecified cause- Primary Type II or unspecified type diabetes mellitus without mention of complication, not stated as uncontrolled Unspecified essential hypertension keno terminal operator (current) use of anticoagulants Long-term (current) use of anticoagulants documented in this encounter Care Teams Lighting Technician Relationship Specialty Start Date End Date Sharan Gómez Jr., MD [address] [place] [address] PCP - General 08/10/05 documented as of this encounter
--- OUTSIDE RECORDS SUMMARY | 2025-07-05 04:03 | XMS_ITS | Encounter Summary ---
Author Organization [facility] Address [address] [place] [address] Care Team Providers Care Ophthalmic Nurse Name Role Phone Rico Muñiz MD, Sharan Jaime Primary Care Provider Encounter Details Date Type Department Care Team (Latest Contact Info) Description 06/20/1999 Outpatient Historical [facility] [place] [facility] [address] [place] [phone] Serge Arrington MD [address] [place] [address] Mitral valve disorder (Primary Dx); Unspecified essential hypertension; Other and unspecified hyperlipidemia; Hematuria Social History Tobacco Use Types Packs/Day Years Used Date Smoking Tobacco: Never Assessed Comments Unknown Sex and Gender Information Value Date Recorded Sex Assigned at Not on file Legal Sex Female 5:42 AM COACH TOUR DRIVER Gender Identity Not on file Sexual Orientation Not on file documented as of this encounter Plan of Treatment Not on file documented as of this encounter Visit Diagnoses Diagnosis Mitral valve disorder- Primary Mitral valve disorders Unspecified essential hypertension Other and unspecified hyperlipidemia Hematuria documented in this encounter Care Teams Ophthalmic Nurse Relationship Specialty Start Date End Date Sharan Gómez Jr., MD [address] [place] [phone] PCP - General 08/10/05 documented as of this encounter
--- OUTSIDE RECORDS SUMMARY | 2025-07-05 04:03 | XMS_ITS | Encounter Summary ---
Author Organization [facility] Address [address] [place] [address] Care Team Providers Care Meat Pumper Name Role Phone Rico Muñiz MD, Sharan Jaime Primary Care Provider Encounter Details Date Type Department Care Team (Latest Contact Info) Description 01/25/2000 Outpatient Historical [facility] Sharan Gómez Jr., MD [address] [place] [address] Obesity, unspecified (Primary Dx); Heart valve replaced by other means; Unspecified essential hypertension; salvage determiner (current) use of anticoagulants Social History Tobacco Use Types Packs/Day Years Used Date Smoking Tobacco: Never Assessed Comments Unknown Sex and Gender Information Value Date Recorded Sex Assigned at Not on file Legal Sex Female 5:42 AM HEATING AND VENTILATING DRAFTER Gender Identity Not on file Sexual Orientation Not on file documented as of this encounter Plan of Treatment Not on file documented as of this encounter Visit Diagnoses Diagnosis Obesity, unspecified- Primary Heart valve replaced by other means Unspecified essential hypertension jail (current) use of anticoagulants Long-term (current) use of anticoagulants documented in this encounter Care Teams Meat Pumper Relationship Specialty Start Date End Date Sharan Gómez Jr., MD [address] [place] [phone] PCP - General 08/10/05 documented as of this encounter
--- OUTSIDE RECORDS SUMMARY | 2025-07-05 04:03 | XMS_ITS | Encounter Summary ---
Author Organization [facility] Address [address] [facility] Attn: [place] [address] Care Team Providers Care General Warehouse Worker Name Role Phone Rico Muñiz MD, Sharan Jaime Primary Care Provider Encounter Details Date Type Department Care Team (Late st Contact Info) Description 06/22/2000 Outpatient Historical Serge Arrington MD [address] [facility] [address] [place] [address] Social History Tobacco Use Types Packs/Day Years Used Date Smoking Tobacco: Never Assessed Comments Unknown Sex and Gender Information Value Date Recorded Sex Assigned at Not on file Legal Sex Female 5:42 AM SUPERVISOR SHOW OPERATIONS Gender Identity Not on file Sexual Orientation Not on file documented as of this encounter Plan of Treatment Not on file documented as of this encounter Visit Diagnoses Not on filedocumented in this encounter Care Teams General Warehouse Worker Relationship Specialty Start Date End Date Sharan Gómez Jr., MD [address] [place] [address] PCP - General 08/10/05 documented as of this encounter
--- OUTSIDE RECORDS SUMMARY | 2025-07-05 04:03 | XMS_ITS | Encounter Summary ---
Author Organization [facility] Address [address] [place] [address] Care Team Providers Care Driving School Instructor Name Role Phone Rico Muñiz MD, Sharan Jaime Primary Care Provider Encounter Details Date Type Department Care Team (Latest Contact Info) Description 01/30/2001 Outpatient Historical [facility] Sharan Gómez Jr., MD [address] [place] [address] Endocarditis, valve unspecified, unspecified cause (Primary Dx); Acute sinusitis, unspecified; Bronchitis, not specified as acute or chronic Social History Tobacco Use Types Packs/Day Years Used Date Smoking Tobacco: Never Assessed Comments Unknown Sex and Gender Information Value Date Recorded Sex Assigned at Not on file Legal Sex Female 5:42 AM LINING PARTS SEWER Gender Identity Not on file Sexual Orientation Not on file documented as of this encounter Plan of Treatment Not on file documented as of this encounter Visit Diagnoses Diagnosis Endocarditis, valve unspecified, unspecified cause- Primary Acute sinusitis, unspecified Bronchitis, not specified as acute or chronic documented in this encounter Care Teams Driving School Instructor Relationship Specialty Start Date End Date Sharan Gómez Jr., MD [address] [place] [address] PCP - General 08/10/05 documented as of this encounter
--- OUTSIDE RECORDS SUMMARY | 2025-07-05 04:03 | XMS_ITS | Encounter Summary ---
Author Organization [facility] Address [address] [place] [address] Care Team Providers Care Machine Chain Maker Name Role Phone Rico Muñiz MD, Sharan Jaime Primary Care Provider Encounter Details Date Type Department Care Team (Latest Contact Info) Description 04/06/2000 Outpatient Historical [facility] Sharan Gómez Jr., MD [address] [place] [address] Symptomatic menopausal or female climacteric states (Primary Dx); Endocarditis, valve unspecified, unspecified cause; group home (current) use of anticoagulants Social History Tobacco Use Types Packs/Day Years Used Date Smoking Tobacco: Never Assessed Comments Unknown Sex and Gender Information Value Date Recorded Sex Assigned at Not on file 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
--- OUTSIDE RECORDS SUMMARY | 2025-07-05 04:03 | XMS_ITS | Encounter Summary ---
Author Organization [facility] Address [address] [place] [address] Care Team Providers Care Metal Framer Name Role Phone Rico Muñiz MD, Sharan Jaime Primary Care Provider Encounter Details Date Type Department Care Team (Latest Contact Info) Description 10/01/2000 Outpatient Historical [facility] Sharan Gómez Jr., MD [address] [place] [address] Endocarditis, valve unspecified, unspecified cause (Primary Dx); Other and unspecified hyperlipidemia; Osteoarthrosis, unspecified whether generalized or localized, unspecified site Social History Tobacco Use Types Packs/Day Years Used Date Smoking Tobacco: Never Assessed Comments Unknown Sex and Gender Information Value Date Recorded Sex Assigned at Not on file 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
--- OUTSIDE RECORDS SUMMARY | 2025-07-05 04:03 | XMS_ITS | Encounter Summary ---
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 Social History Tobacco Use Types Packs/Day Years Used Date Smoking Tobacco: Never Assessed Comments Unknown Sex and Gender Information Value Date Recorded Sex Assigned at Not on file 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
--- OUTSIDE RECORDS SUMMARY | 2025-07-05 04:03 | XMS_ITS | Encounter Summary ---
Author Organization [facility] Address [address] [place] [address] Care Team Providers Care Psychology Tech Name Role Phone Rico Muñiz MD, Sharan Jaime Primary Care Provider Encounter Details Date Type Department Care Team (Latest Contact Info) Description 08/10/2005 Outpatient Historical [facility] [place] [address] [place] [address] Bill Negron MD [address] [place] [address] INT HEMORRHOID W/O COMPL (Primary Dx) Social History Tobacco Use Types Packs/Day Years Used Date Smoking Tobacco: Never Assessed Comments Unknown Sex and Gender Information Value Date Recorded Sex Assigned at Not on file 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
--- NOTE | 2025-07-05 04:10 | ECG_ITS ---
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
[2025-07-05 04:13] LABS: Hematocrit 35.5 % (36-47); Hemoglobin 11.60 g/dL (11.27-16.99); Mean Corpuscular HGB Conc 32.7 g/dL (30-55); Mean Corpuscular Hemoglobin 34.3 pg (27-33); Mean Corpuscular Volume 105.0 fl (85-98); Nucleated Red Blood Cells % 0 %; Platelet Count 230 10^3/cmm (157-399); Red Blood Count 3.38 10^6/uL (3.85-5.65); White Blood Count 5.99 10^3/uL (3.29-11.43)
[2025-07-05 04:29] LABS: INR 2.44 (0.8-1.2); Prothrombin Time 27.90 SECONDS (12.1-14.9)
[2025-07-05 04:39] LABS: Troponin(5th) Baseline 13 ng/L (0-10)
[2025-07-05 04:48] VITALS: BP 146/95; PULSE 71; RESP 14; O2SAT 98
[2025-07-05 04:51] LABS: Alanine Aminotransferase 19 U/L (0-33); Albumin Level 4.5 g/dL (3.5-5.2); Alkaline Phosphatase 93 U/L (35-105); Anion Gap 12.8 (5-19); Aspartate Amino Transferase 28 U/L (0-32); Blood Urea Nitrogen 16 mg/dL (8-23); Calcium 10.5 mg/dL (8.5-10.5); Carbon Dioxide 27 mmol/L (22-29); Chloride 103 mmol/L (98-107); Creatinine Clr Calc Pharmacy 44.6472; Globulin 2.9 g/dL (1.3-4.6); Glucose 85 mg/dL (65-115); NT Pro B Type Natriuretic Pept 1093 pg/mL (0-450); Osmolality Calculated 286 mOsm/kg (285-295); Potassium 4.8 mmol/L (3.5-5.1); Sodium 138 mmol/L (136-145); Total Protein 7.4 g/dL (6.6-8.7)
[2025-07-05] MEDS: methylPREDNISolone sod succ 125 mg/2 mL INJ 80 MG IVP (05:06)
[2025-07-05 05:49] LABS: Troponin 5 2HR 10.28 ng/L (0-10)
[2025-07-05 05:51] LABS: Troponin 5 2HR Delta -2.72 ABS# (0-10)
[2025-07-05 06:32] VITALS: BP 138/93; PULSE 79; RESP 14; O2SAT 96
== END 2025-07-05 06:34 | disposition home or self-care (01) ==
PROVIDERS: Emergency Provider Emergency Medicine; PCP Family Medicine
DX: M25.512 Pain in left shoulder (principal); R20.2 Paresthesia of skin; Z79.01 Long term (current) use of anticoagulants; Z79.82 Long term (current) use of aspirin; I25.10 Atherosclerotic heart disease of native coronary artery without angina pectoris; E78.5 Hyperlipidemia, unspecified; I13.0 Hypertensive heart and chronic kidney disease with heart failure and stage 1 through stage 4 chronic kidney disease, or unspecified chronic kidney disease; N18.2 Chronic kidney disease, stage 2 (mild); I50.9 Heart failure, unspecified
CPT/HCPCS: 71045; 80053; 83880; 84484; 85025; 85610; 93005; 96374; 96375; 99285; J1885; J2919

== ENCOUNTER 2025-07-07 05:02 | Emergency (ER) | payer MEDICARE, MEDICAID, SELFPAY ==
--- NOTE | 2025-07-07 04:48 | XRR_ITS ---
PROCEDURE INFORMATION: Exam: XR Chest Exam date and time: 07/07/2025 4:48 AM Age: 74 years old Clinical indication: Pain; Chest pressure; Prior surgery; Surgery date: 6+ months; Surgery type: Mitral valve replacement, cardiac stents; Additional info: Cp TECHNIQUE: Imaging protocol: Radiologic exam of the chest. Views: 1 view. COMPARISON: CR (CHEST, ) 07/05/2025 4:05 AM FINDINGS: Lungs: Linear atelectasis or fibrosis in each lower lobe. Pleural spaces: Unremarkable. No pleural effusion. No pneumothorax. Heart/Mediastinum: Unremarkable. No cardiomegaly. Vasculature: And uncoiling of the thoracic aorta accentuated by the AP positioning. Bones/joints: Left thoracolumbar scoliosis. Deformity of the proximal right humerus. XR/XR chest 1V portable [id number] IMPRESSION: No acute findings. Chronic changes bilaterally.
[2025-07-07 04:51] VITALS: BP 127/88; PULSE 80; RESP 16; TEMP 36.7; O2SAT 93; BMI 28.1
--- NOTE | 2025-07-07 04:57 | ECG_ITS ---
[facility] Test Date: 2025-07-07 Pat Name: Odilia Ulloa Department: Room: Gender: Female Parent Partner: : 1950 Requested By: Piyush Foster Order Number: [id number] Epps MD: Hema Siu M.D. Measurements Intervals [place] Rate: 89 P: 0 CA: 0 QRS: 8 QRSD: 124 T: 20 QT: 380 QTc: 465 Interpretive Statements ATRIAL FIBRILLATION POSSIBLE RIGHT VENTRICULAR CONDUCTION DELAY [RSR (QR) IN V1/V2] ABNORMAL RHYTHM ECG Compared to ECG 07/05/2025 04:10:40 No significant changes Electronically Signed On 07-08-2025 20:58:09 CDT by Hema Siu M.D. [email or web address]
--- NOTE | 2025-07-07 05:00 | ED_ITS ---
HPI - Chest Pain 2 General: Chief Complaint: Chest Pain Stated Complaint: CHEST PAIN Source: patient and EMS Mode of arrival: EMS Limitations: no limitations History of Present Illness: 74-year-old female states she started wi th some arm pain chest pain started at 4 PM. States she also just feels weak and tired. She had recently been admitted here 2 weeks ago had a negative heart cath at that time. She denies any cough denies any fevers she denies any worsening proving factors rates her pain a 2 out of 10 currently Associated symptoms: Deny abdominal pain, dyspnea, fever(s), nausea or vomiting Related Data Home Medications ?Medication ?Instructions ?Recorded ?Confirmed nitroglycerin 0.4 mg sublingual 0.4 mg sublingual Q5M PRN chest 11/07/19 06/25/25 tablet (Nitrostat) pains levothyroxine 75 mcg tablet 75 mcg PO DAILY@0700 hypot hyroidism 11/11/20 06/25/25 (Euthyrox) tramadol 50 mg tablet 50 mg PO Q6H PRN Pain 06/25/25 potassium chloride 20 mEq 20 meq PO BID@0700,1900 11/3006/25/25 tablet,extended release meclizine 12.5 mg tablet 12.5 mg PO Q6H PRN nausea an d 04/19/21 06/25/25 vomiting bismuth subsalicylate 525 mg/15 mL 525 mg PO Q8H PRN 1 06/25/25 oral suspension (Pepto-Bismol Max Nausea/vomiting/diar rianna St) mirtazapine 15 mg tablet 15 mg PO QAM 05/21/24 pantoprazole 40 mg tablet,delayed 40 mg PO QAM 5 06/25/25 release amiodarone 200 mg tablet 200 mg PO PRN PRN if blood 0 01/31/25 06/25/25 pressure is over 120 cetirizine 10 mg tablet (Zyrtec) 10 mg PO PRN PRN Isaiah rgy Symptoms 01/31/25 06/25/25 hydroxyzine HCl 25 mg tablet 25 mg PO TID PRN Anxiety 01/31/25 06/25/25 ipratropium bromide 42 mcg (0.06 2 spray intranasal TI D PRN 01/31/25 06/25/25 %) nasal spray ALLERGIES magnesium hydroxide 400 mg/5 mL 30 ml PO PRN PRN bowel movemaent 01/31/25 06/25/25 oral suspension (Milk of Magnesia) polyethylene glycol 3350 17 17 g PO QAM Constipation 0 01/31/25 06/25/25 gram/dose oral powder (Miralax) warfarin 2.5 mg tablet See Rx Instructions .Route . COMPLEX 01/31/25 06/25/25 warfarin 3 mg tablet See Rx Instructions .Route . COMPLEX 05/27/25 06/25/25 folic acid 1 mg tablet 1 mg PO DAILY 06/22/2506/25 acetaminophen 500 mg tablet 1,000 mg PO Q8H 06/25/25 0 06/25/25 oysfj-stglnsoa-yez-turp-pet 1 ea topical PRN PRN thick toe 06/25/25 06/25/25 topical ointment nails cyanocobalamin (vitamin B-12) 2,000 mcg sublingual [place]ONA LY 06/25/25 06/25/25 1,000 mcg sublingual tablet methyl salicylate 30 %-menthol 10 1 applic topical TID PRN sore 06/25/25 06/25/25 % topical cream (Icy Hot) muscles spironolactone 25 mg tablet 25 mg PO QAM 06/25/2505/30 Previous Rx's ?Medication ?Instructions ?Recorded furosemide 40 mg tablet 60 mg (1.5 x 40 mg) PO DAILY @0700 05/18/23 edema #135 tabs metoprolol tartrate 100 mg tablet 100 mg PO BID #180 t abs 12/05/24 galantamine 8 mg 24 hr 8 mg PO QAM 90 days #90 caps 05/06/25 capsule,extended release memantine 5 mg tablet 5 mg PO BID #180 tabs aspirin 81 mg capsule 81 mg PO DAILY #30 caps 11/22 atorvastatin 40 mg tablet 40 mg PO BEDTIME #30 tabs methylprednisolone 4 mg tablets in See Rx Instructions PO .COMPLEX 07/05/25 a dose pack (Medrol (Chema)) #21 ea Allergies Allergy/AdvReac Type Severity Reaction Status Date / [facility] Allergy Unknown Verified 06/23/25 10:03 morphine Allergy Unknown Verified 06/23/25 10:03 Review of Systems 2 Const: Reports: fatigue; Denies: fever(s), chills, body aches or change in appetite ENMT: Denies: throat pain or dental pain Card: Reports: chest pain Resp: Denies: dyspnea GI: Denies: abdominal pain, nausea, vomiting or diarrhea Musc: Denies: neck pain or back pain Skin/Breast: Denies: rash Neuro: Denies: headache(s) PFSH ED 2 PFSH: Medical History (Updated 07/07/25 @ 05:47 by Piyush Foster MD) Chronic anxiety History of iron deficiency anemia Alzheimer disease CKD (chronic kidney disease) stage 2, GFR 60-89 ml/min Hypertension CAD (coronary artery disease) CHF (congestive heart failure) Insomnia Hypothyroid Hyperlipidemia Chronic neck and back pain GERD (gastroesophageal reflux disease) Chronic atrial fibrillation Chronic constipation Surgical History History of heart artery stent Coronary angioplasty/stent placement in 2011 and in 2012 Hx of colonoscopy 2017 H/O esophagogastroduodenoscopy 2011, 2016, and 2018 S/P cholecystectomy H/O section Mitral valve replaced mechanical valve replacement 1994 Family History Other CAD (coronary artery disease) Diabetes Social History Smoking and tobacco/nicotine status: never used tobacco/nicotine Alcohol intake: never Substance/Drug Use: never Housing: Assisted Living Facility Marital status: Single Number of children: 1 Current occupational status: disabled Current gender identity: Female Female Reproductive History: Para: 1 Physical Exam 2 Const: COMMON NORMALS: no acute distress, patient oriented x3 and healthy appearing HENMT: COMMON NORMALS: normocephalic and atraumatic HEAD & SCALP: n ormocephalic and atraumatic Eye: COMMON NORMALS: conjunctivae normal CONJUNCTIVA: Yes conjunctivae normal Neck/C-Spine: COMMON NORMALS: full ROM and supple Chest: COMMONS NORMALS: normal inspection of the chest and normal palpation of entire chest wall Resp: COMMON NORMALS: normal respiratory effort, No retractions, No use of accessory muscles and clear to auscultation bilaterally AUSCULTATION: clear to auscultation bilaterally Cardio: COMMON NORMALS: regular rate, regular rhythm and No murmurs present (Cardio) RATE: regular rate RHYTHM: regular rhythm GI: COMMON NORMALS: Normal to inspection, nondistended, normoactive bowel sounds present, Soft to palpation, non-tender and no masses PALPATION: Yes Soft to palpation Extremity: COMMON NORMALS: normal to inspection and full ROM Neuro: COMMON NORMALS: patient oriented x3, moves all extremities and no focal motor deficits Psych: COMMON NORMALS: mental status grossly normal, Normal thought process present and cooperative THOUGHT PROCESS: Normal thought process present Skin: COMMON NORMALS: no rashes or lesions noted and no wounds GENERAL SKIN EXAM: no rashes or lesions noted Course 2 Vital Signs: Vital signs: Vital Signs Temperature 98.1 F 07/07/25 04:51 Pulse Rate 78 07/07/25 06:06 Respiratory Rate 23 H 07/07/25 06:06 Blood Pressure 113/73 07/07/25 06:06 Pulse Oximetry 94 07/07/25 06:06 Oxygen Delivery Me thod Room Air 07/07/25 04:51 MDM - Chest Pain Medical Decision Making Patient presents for chest pain along with feeling generally unwell she is well- appearing here had a recent cath that was negative no signs of acute coronary syndrome troponins at her baseline she stable for discharge follow-up with PCP return if worsening. Medical Records I reviewed the patient's medical records. Lab Data I reviewed the patient's lab results. 07/07/25 04:45 07/07/25 04:45 Radiology Impressions Chest X-Ray 07/07/25 04:48 IMPRESSION: No acute findings. Chronic changes bilaterally. Laboratory Results WBC 8.19 10^3/uL (3.29-11.43) 07/07/25 04:45 RBC 3.19 10^6/uL (3.85-5.65) L 07/07/25 04:45 Hgb 11.00 g/dL (11.27-16.99) L 07/07/25 04:45 Hct 34.3 % (36-47) L 07/07/25 04:45 MCV 107.5 fl (85-98) H 07/07/25 04:45 MCH 34.5 pg (27-33) H 07/07/25 04:45 MCHC 32.1 g/dL (30-55) 07/07/25 04:45 RDW 13.0 % (12.1-15.1) 07/07/25 04:45 Plt Count 230 10^3/cmm (157-399) 07/07/25 04:45 MPV 9.7 fL (7.4-10.4) 07/07/25 04:45 Neut % (Auto) 48.3 % 07/07/25 04:45 Lymph % (Auto) 38.3 % 07/07/25 04:45 [place] % (Auto) 7.9 % 07/07/25 04:45 Eos % (Auto) 4.3 % 07/07/25 04:45 Baso % (Auto) 1.0 % 07/07/25 04:45 Neut # (Auto) 3.95 10^3/uL (1.8-7.7) 07/07/25 04:45 Lymph # (Auto) 3.1 10^3/uL (0.8-4.8) 07/07/25 04:45 [place] # (Auto) 0.7 10^3/uL (0.2-0.9) 07/07/25 04:45 Eos # (Auto) 0.4 10^3/uL (0.0-0.8) 07/07/25 04:45 Baso # (Auto) 0.1 10^3/uL (0.0-0.1) 07/07/25 04:45 Nucleated RBC % (auto) 0 % 07/07/25 04:45 Nucleated RBCs # 0.0 /100WBC 07/07/25 04:45 PT 31.40 SECONDS (12.1-14.9) H 07/07/25 04:45 INR 2.84 (0.8-1.2) H 07/07/25 04:45 Sodium 140 mmol/L (136-145) 07/07/25 04:45 Potassium 4.7 mmol/L (3.5-5.1) 07/07/25 04:45 Chloride 104 mmol/L (98-107) 07/07/25 04:45 Carbon Dioxide 25 mmol/L (22-29) 07/07/25 04:45 Anion Gap 15.7 (5-19) 07/07/25 04:45 BUN 25 mg/dL (8-23) H 07/07/25 04:45 Creatinine 1.0 mg/dL (0.5-0.9) H 07/07/25 04:45 GFR Calculation Not Reportable 07/07/25 04:45 Glucose 89 mg/dL (65-115) 07/07/25 04:45 Calculated Osmolality 294 mOsm/kg (285-295) 07/07/25 04:45 Calcium 10.2 mg/dL (8.5-10.5) 07/07/25 04:45 Total Bilirubin 0.7 mg/dL (0.15-1.2) 07/07/25 04:45 AST 23 U/L (0-32) 07/07/25 04:45 ALT 22 U/L (0-33) 07/07/25 04:45 Alkaline Phosphatase 82 U/L (35-105) 07/07/25 04:45 Troponin T Baseline 13 ng/L (0-10) H 07/07/25 04:45 Total Protein 7.2 g/dL (6.6-8.7) 07/07/25 04:45 Albumin 4.3 g/dL (3.5-5.2) 07/07/25 04:45 Globulin 2.9 g/dL (1.3-4.6) 07/07/25 04:45 Urine Color Yellow (Yellow) 07/07/25 05:17 Urine Appearance Clear (CLEAR) 07/07/25 05:17 Urine pH 5.0 (5-7) 07/07/25 05:17 Ur Specific [place] 1.022 (1.005-1.030) 07/07/25 05:17 Urine Protein Negative (Negative) 07/07/25 05:17 Urine Glucose (UA) Negative (Normal) 07/07/25 05:17 Urine Ketones Negative (Negative) 07/07/25 05:17 Urine Blood Negative (Negative) 07/07/25 05:17 Urine Nitrate Negative (Negative) 07/07/25 05:17 Urine Bilirubin Negative (Negative) 07/07/25 05:17 Urine Urobilinogen 1.0 mg/dL (Negative) 07/07/25 05:17 Ur Leukocyte Esterase 2+ (Negative) A 07/07/25 05:17 Urine RBC 0-2 /hpf (0-2) 07/07/25 05:17 Urine WBC 6-10 /hpf (0-5) 07/07/25 05:17 Ur Squamous Epith Cells 0-5 /hpf (0-5) 07/07/25 05:17 Amorphous Sediment Not Reportable 07/07/25 05:17 Urine Bacteria None seen /hpf (NONE) 07/07/25 05:17 Hyaline Casts 1.65 /lpf 07/07/25 05:17 All radiology interpretation(s) finalized by discharge EKG Data EKG 1: I personally reviewed and interpreted this EKG as follows: EKG interpretation date: 07/07/25 EKG interpretation time: 04:57 Interpretation: afib hr [address] elevation qrs 124 qtc 427 Clincial Decision Support The following clinical decision support tools were used to aid in care of the patient HEART Score -> History: Slightly Suspicous, EKG: Normal, Age: 65 or more yrs, Risk Factors: 1 or 2 Risk Factors, Troponin: Baseline Trop <16 ng/L. Resulting HEART Score: 3. Discharge Plan Discharge Patient Disposition: Home Clinical Impression: Chest pain Condition: Stable Prescriptions: No Action nitroglycerin [Nitrostat] 0.4 mg tablet, sublingual 0.4 mg SUBLINGUAL Q5M PRN (Reason: chest pains) Pepto-Bismol Max St 525 mg/15 mL suspension 525 mg PO Q8H PRN (Reason: Nausea/vomiting/diarrhea) Rx Instructions: do not exceed 8 doses in a 24 hour period meclizine 12.5 mg tablet 12.5 mg PO Q6H PRN (Reason: nausea and vomiting ) potassium chloride 20 mEq tablet extended release 20 meq PO BID@0700,1900 mirtazapine 15 mg tablet 15 mg PO QAM metoprolol tartrate 100 mg tablet 100 mg PO BID Qty: 180 3RF folic acid 1 mg tablet 1 mg PO DAILY furosemide 40 mg tablet 60 mg PO DAILY@0700 Qty: 135 0RF galantamine 8 mg capsule,ext rel. pellets 24 hr 8 mg PO QAM 90 Days Qty: 90 3RF memantine 5 mg tablet 5 mg PO BID Qty: 180 3RF tramadol 50 mg Tablet 50 mg PO Q6H PRN (Reason: Pain) levothyroxine [Euthyrox] 75 mcg tablet 75 mcg PO DAILY@0700 pantoprazole 40 mg tablet,delayed release (DR/EC) 40 mg PO QAM cetirizine [Zyrtec] 10 mg Tablet 10 mg PO PRN PRN (Reason: Allergy Symptoms) warfarin 2.5 mg tablet See Rx Instructions .ROUTE .COMPLEX Rx Instructions: Take 1 tablet by mouth on Sunday , Sunday , , Sunday , and Sunday hydroxyzine HCl 25 mg tablet 25 mg PO TID PRN (Reason: Anxiety) polyethylene glycol 3350 [Miralax] 17 gram/dose Powder 17 g PO QAM ipratropium bromide 42 mcg (0.06 %) spray,non-aerosol 2 spray INTRANASAL TID PRN (Reason: ALLERGIES) magnesium hydroxide [Milk of Magnesia] 400 mg/5 mL Suspension 30 ml PO PRN PRN (Reason: bowel movemaent ) amiodarone 200 mg tablet 200 mg PO PRN PRN (Reason: if blood pressure is over 120) cyanocobalamin (vitamin B-12) 1,000 mcg Tablet, Sublingual 2,000 mcg SUBLINGUAL DAILY bbvec-wklcoose-scm-turp-pet Ointment 1 ea TOPICAL PRN PRN (Reason: thick toe nails) acetaminophen 500 mg Tablet 1,000 mg PO Q8H Icy Hot 30-10 % Cream 1 applic TOPICAL TID PRN (Reason: sore muscles) spironolactone 25 mg tablet 25 mg PO QAM atorvastatin 40 mg Tablet 40 mg PO BEDTIME Qty: 30 0RF aspirin 81 mg capsule 81 mg PO DAILY Qty: 30 0RF methylprednisolone [Medrol (Chema)] 4 mg tablets,dose pack See Rx Instructions .ROUTE .COMPLEX Qty: 21 0RF Rx Instructions: orally per package directions warfarin 3 mg tablet See Rx Instructions .ROUTE .COMPLEX Rx Instructions: Take 1 tablet by mouth on Sunday and Sunday Discharge Orders: Discharge ED (Routine); Ordered 07/07/25 Ordered By: Piyush Foster Referrals: Danny Marmolejo MD [Primary Care Provider, Family Practice] Discharge Diet: Advance as tolerated Discharge Activity: Resume usual activity Patient Instructions: Chest Pain (ED) Print Language: Thai Coding Level of Care Code ED Child Caregiver Private Home for Indra Carmona
[2025-07-07 05:05] LABS: Hematocrit 34.3 % (36-47); Hemoglobin 11.00 g/dL (11.27-16.99); Mean Corpuscular HGB Conc 32.1 g/dL (30-55); Mean Corpuscular Hemoglobin 34.5 pg (27-33); Mean Corpuscular Volume 107.5 fl (85-98); Nucleated Red Blood Cells % 0 %; Platelet Count 230 10^3/cmm (157-399); Red Blood Count 3.19 10^6/uL (3.85-5.65); White Blood Count 8.19 10^3/uL (3.29-11.43)
--- OUTSIDE RECORDS SUMMARY | 2025-07-07 05:09 | XMS_ITS | Encounter Summary ---
Author Organization [facility] Address [address] [place] [address] Care Team Providers Care Diesel Truck Technician Name Role Phone Rico Muñiz MD, Sharan Jaime Primary Care Provider Encounter Details Date Type Department Care Team (Latest Contact Info) Description 11/28/2001 Outpatient Historical [facility] Sharan Gómez Jr., MD [address] [place] [address] URIN TRACT INFECTION NOS (Primary Dx); AFTERCARE LONGTERM ANTICOAG USE Social History Tobacco Use Types Packs/Day Years Used Date Smoking Tobacco: Never Assessed Comments Unknown Sex and Gender Information Value Date Recorded Sex Assigned at Not on file 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
--- OUTSIDE RECORDS SUMMARY | 2025-07-07 05:09 | XMS_ITS | Encounter Summary ---
Author Organization [facility] Address [address] [place] [address] Care Team Providers Care Forestry Aid Name Role Phone Rico Muñiz MD, Sharan Jaime Primary Care Provider Encounter Details Date Type Department Care Team (Latest Contact Info) Description 11/04/1998 Outpatient Historical [facility] Sharan Gómez Jr., MD [address] [place] [address] Acute upper respiratory infections of unspecified site (Primary Dx); Screening for other and unspecified respiratory condition; Other dyspnea and respiratory abnormality; skilled nursing (current) use of anticoagulants Social History Tobacco Use Types Packs/Day Years Used Date Smoking Tobacco: Never Assessed Comments Unknown Sex and Gender Information Value Date Recorded Sex Assigned at Not on file Legal Sex Female 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 Gender Identity Not on file Sexual Orientation Not on file documented as of this encounter Plan of Treatment Not on file documented as of this encounter Visit Diagnoses Diagnosis Acute upper respiratory infections of unspecified site- Primary Screening for other and unspecified respiratory condition Other dyspnea and respiratory abnormality skilled nursing (current) use of anticoagulants Long-term (current) use of anticoagulants documented in this encounter Care Teams Forestry Aid Relationship Specialty Start Date End Date Sharan Gómez Jr., MD [address] [place] [address] PCP - General 08/10/05 documented as of this encounter
--- OUTSIDE RECORDS SUMMARY | 2025-07-07 05:09 | XMS_ITS | Encounter Summary ---
Author Organization [facility] Address [address] [place] [address] Care Team Providers Care Service Station Operator Name Role Phone Rico Muñiz MD, Sharan Jaime Primary Care Provider Encounter Details Date Type Department Care Team (Latest Contact Info) Description 07/04/[address] 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
--- OUTSIDE RECORDS SUMMARY | 2025-07-07 05:09 | XMS_ITS | Encounter Summary ---
Author Organization [facility] Address [address] [place] [address] Care Team Providers Care Facilities Custodian Name Role Phone Rico Muñiz MD, Sharan Jaime Primary Care Provider Encounter Details Date Type Department Care Team (Latest Contact Info) Description 02/25/1999 Outpatient Historical [facility] Sharan Gómez Jr., MD [address] [place] [address] Dietary surveil/scholarship counselor (Primary Dx) Social History Tobacco Use Types Packs/Day Years Used Date Smoking Tobacco: Never Assessed Comments Unknown Sex and Gender Information Value Date Recorded Sex Assigned at Not on file Legal Sex Female 5:42 AM CHARACTER ARTIST Gender Identity Not on file Sexual Orientation Not on file documented as of this encounter Plan of Treatment Not on file documented as of this encounter Visit Diagnoses Diagnosis Dietary surveil/scholarship counselor- Primary Dietary surveillance and counseling documented in this encounter Care Teams Facilities Custodian Relationship Specialty Start Date End Date Sharan Gómez Jr., MD [address] [place] [address] PCP - General 08/10/05 documented as of this encounter
--- OUTSIDE RECORDS SUMMARY | 2025-07-07 05:09 | XMS_ITS | Encounter Summary ---
Author Organization [facility] Address [address] [place] [address] Care Team Providers Care Tonger Name Role Phone Rico Muñiz MD, Sharan Jaime Primary Care Provider Encounter Details Date Type Department Care Team (Latest Contact Info) Description 04/23/2002 Outpatient Historical [facility] Sharan Gómez Jr., MD [address] [place] [address] Pure hypercholesterolem (Primary Dx); HYPERCALCEMIA Social History Tobacco Use Types Packs/Day Years Used Date Smoking Tobacco: Never Assessed Comments Unknown Sex and Gender Information Value Date Recorded Sex Assigned at Not on file Legal Sex Female 5:42 AM LIFE SCIENTIST Gender Identity Not on file Sexual Orientation Not on file documented as of this encounter Plan of Treatment Not on file documented as of this encounter Visit Diagnoses Diagnosis Pure hypercholesterolem- Primary Pure hypercholesterolemia Hypercalcemia documented in this encounter Care Teams Tonger Relationship Specialty Start Date End Date Sharan Gómez Jr., MD [address] [place] [address] PCP - General 08/10/05 documented as of this encounter
--- OUTSIDE RECORDS SUMMARY | 2025-07-07 05:09 | XMS_ITS | Encounter Summary ---
Author Organization [facility] Address [address] [place] [address] Care Team Providers Care Circus Laborer Name Role Phone Rico Muñiz MD, Sharan Jaime Primary Care Provider Encounter Details Date Type Department Care Team (Latest Contact Info) Description 07/06/2003 Outpatient Historical [facility] [address] [place] [id number] Екатерина Malone MD [address] [place] [address] AFTERCARE SENIOR CARE USE MEDICATN (Primary Dx) Social History Tobacco Use Types Packs/Day Years Used Date Smoking Tobacco: Never Assessed Comments Unknown Sex and Gender Information Value Date Recorded Sex Assigned at Not on file Legal Sex Female 5:42 AM LEARNING SPECIALIST Gender Identity Not on file Sexual Orientation Not on file documented as of this encounter Plan of Treatment Not on file documented as of this encounter Visit Diagnoses Diagnosis Encounter for long-term (current) use of other medications- Primary documented in this encounter Care Teams Circus Laborer Relationship Specialty Start Date End Date Sharan Gómez Jr., MD [address] [place] [address] PCP - General 08/10/05 documented as of this encounter
--- OUTSIDE RECORDS SUMMARY | 2025-07-07 05:09 | XMS_ITS | Encounter Summary ---
Author Organization [facility] Address [address] [place] [address] Care Team Providers Care Data Report Analyst Name Role Phone Rico Muñiz MD, Sharan Jaime Primary Care Provider Encounter Details Date Type Department Care Team (Latest Contact Info) Description 10/27/1998 Outpatient Historical [facility] Sharan Gómez Jr., MD [address] [place] [address] Unspecified essential hypertension (Primary Dx); Chest pain, unspecified; Pneumonia, organism unspecified(486) Social History Tobacco Use Types Packs/Day Years Used Date Smoking Tobacco: Never Assessed Comments Unknown Sex and Gender Information Value Date Recorded Sex Assigned at Not on file Legal Sex Female 5:42 AM MERCURY WASHER Gender Identity Not on file Sexual Orientation Not on file documented as of this encounter Plan of Treatment Not on file documented as of this encounter Visit Diagnoses Diagnosis Unspecified essential hypertension- Primary Chest pain, unspecified Pneumonia, organism unspecified(486) Pneumonia, organism unspecified documented in this encounter Care Teams Data Report Analyst Relationship Specialty Start Date End Date Sharan Gómez Jr., MD [address] [place] [address] PCP - General 08/10/05 documented as of this encounter
--- OUTSIDE RECORDS SUMMARY | 2025-07-07 05:09 | XMS_ITS | Encounter Summary ---
Author Organization [facility] Address [address] [place] [address] Care Team Providers Care Gate Person Name Role Phone Rico Muñiz MD, Sharan Jaime Primary Care Provider Encounter Details Date Type Department Care Team (Latest Contact Info) Description 07/02/2001 Outpatient Historical [facility] [address] [place] [id number] X358 Social History Tobacco Use Types Packs/Day Years Used Date Smoking Tobacco: Never Assessed Comments Unknown Sex and Gender Information Value Date Recorded Sex Assigned at Not on file Legal Sex Female 5:42 AM YARN PREPARATION SUPERVISOR Gender Identity Not on file Sexual Orientation Not on file documented as of this encounter Plan of Treatment Not on file documented as of this encounter Visit Diagnoses Not on filedocumented in this encounter Care Teams Gate Person Relationship Specialty Start Date End Date Sharan Gómez Jr., MD [address] [place] [address] PCP - General 08/10/05 documented as of this encounter
--- OUTSIDE RECORDS SUMMARY | 2025-07-07 05:09 | XMS_ITS | Encounter Summary ---
Author Organization [facility] Address [address] [place] [address] Care Team Providers Care Dental Technician Instructor Name Role Phone Rico Muñiz MD, Sharan Jaime Primary Care Provider Encounter Details Date Type Department Care Team (Latest Contact Info) Description 10/15/1998 Outpatient Historical [facility] Sharan Gómez Jr., MD [address] [place] [address] Unspecified essential hypertension (Primary Dx); Hypopotassemia; terminal block assembler (current) use of anticoagulants Social History Tobacco Use Types Packs/Day Years Used Date Smoking Tobacco: Never Assessed Comments Unknown Sex and Gender Information Value Date Recorded Sex Assigned at Not on file Legal 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
--- OUTSIDE RECORDS SUMMARY | 2025-07-07 05:09 | XMS_ITS | Encounter Summary ---
Author Organization [facility] Address [address] [place] [address] Care Team Providers Care Liner Helper Name Role Phone Rico Muñiz MD, Sharan Jaime Primary Care Provider Encounter Details Date Type Department Care Team (Latest Contact Info) Description 07/04/2005 Outpatient Historical [facility] Int [facility] [place] [address] [place] [address] Serge Arrington MD [address] [place] [address] ROUTINE HOP GROWER EXAMINATION (Primary Dx) Social History Tobacco Use Types Packs/Day Years Used Date Smoking Tobacco: Never Assessed Comments Unknown Sex and Gender Information Value Date Recorded Sex Assigned at Not on file Legal Sex Female 5:42 AM BULB FILLER Gender Identity Not on file Sexual Orientation Not on file documented as of this encounter Plan of Treatment Not on file documented as of this encounter Visit Diagnoses Diagnosis Routine gynecological examination- Primary documented in this encounter Care Teams Liner Helper Relationship Specialty Start Date End Date Sharan Gómez Jr., MD [address] [place] [address] PCP - General 08/10/05 documented as of this encounter
--- OUTSIDE RECORDS SUMMARY | 2025-07-07 05:09 | XMS_ITS | Encounter Summary ---
Author Organization [facility] Address [address] [place] [address] Care Team Providers Care Central Communications Specialist Name Role Phone Rico Muñiz MD, Sharan Jaime Primary Care Provider Encounter Details Date Type Department Care Team (Latest Contact Info) Description 09/05/2001 Outpatient Historical [facility] Sharan Gómez Jr., MD [address] [place] [address] OSTEOARTHROS NOS-UNSPEC (Primary Dx); OSTEOPOROSIS NOS Social History Tobacco Use Types Packs/Day Years Used Date Smoking Tobacco: Never Assessed Comments Unknown Sex and Gender Information Value Date Recorded Sex Assigned at Not on file Legal Sex Female 5:42 AM BUSSER Gender Identity Not on file Sexual Orientation Not on file documented as of this encounter Plan of Treatment Not on file documented as of this encounter Visit Diagnoses Diagnosis Osteoarthrosis, unspecified whether generalized or localized, unspecified site- Primary Osteoporosis, unspecified documented in this encounter Care Teams Central Communications Specialist Relationship Specialty Start Date End Date Sharan Gómez Jr., MD [address] [place] [address] PCP - General 08/10/05 documented as of this encounter
--- OUTSIDE RECORDS SUMMARY | 2025-07-07 05:09 | XMS_ITS | Encounter Summary ---
Author Organization [facility] Address [address] [place] [address] Care Team Providers Care Dive Superintendent Name Role Phone Rico Muñiz MD, Sharan Jaime Primary Care Provider Encounter Details Date Type Department Care Team (Latest Contact Info) Description 04/19/2001 Outpatient Historical [facility] Arun Nichols NO ADDRESS ON FILE Contusion of hand(s) (Primary Dx) Social History Tobacco Use Types Packs/Day Years Used Date Smoking Tobacco: Never Assessed Comments Unknown Sex and Gender Information Value Date Recorded Sex Assigned at Not on file Legal Sex Female 5:42 AM 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
--- OUTSIDE RECORDS SUMMARY | 2025-07-07 05:09 | XMS_ITS | Encounter Summary ---
Author Organization [facility] Address [address] [place] [address] Care Team Providers Care Geothermal Powerplant Mechanic Name Role Phone Rico Muñiz MD, Sharan Jaime Primary Care Provider Encounter Details Date Type Department Care Team (Latest Contact Info) Description 01/03/2002 Outpatient Historical [facility] Sharan Gómez Jr., MD [address] [place] [address] FLU W RESP MANIFEST NEC (Primary Dx); [facility] ANTICOAG USE Social History Tobacco Use Types Packs/Day Years Used Date Smoking Tobacco: Never Assessed Comments Unknown Sex and Gender Information Value Date Recorded Sex Assigned at Not on file Legal Sex Female 5:42 AM DRAFTER 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
--- OUTSIDE RECORDS SUMMARY | 2025-07-07 05:09 | XMS_ITS | Encounter Summary ---
Author Organization [facility] Address [address] [place] [address] Care Team Providers Care Electric Repair Supervisor Name Role Phone Rico Muñiz MD, Sharan Jaime Primary Care Provider Encounter Details Date Type Department Care Team (Latest Contact Info) Description 07/06/2006 Outpatient Historical [facility] [place] [address] [place] [address] Jennifer Cash MD NO ADDRESS ON FILE Unspecified Essential Hypertension (Primary Dx); Other Chest Pain Social History Tobacco Use Types Packs/Day Years Used Date Smoking Tobacco: Never Assessed Comments Unknown Sex and Gender Information Value Date Recorded Sex Assigned at Not on file Legal Sex Female 5:42 AM EELER Gender Identity Not on file Sexual Orientation Not on file documented as of this encounter Plan of Treatment Not on file documented as of this encounter Visit Diagnoses Diagnosis Unspecified essential hypertension- Primary Other chest pain documented in this encounter Care Teams Electric Repair Supervisor Relationship Specialty Start Date End Date Sharan Gómez Jr., MD [address] [place] [address] PCP - General 08/10/05 documented as of this encounter
--- OUTSIDE RECORDS SUMMARY | 2025-07-07 05:09 | XMS_ITS | Encounter Summary ---
Author Organization [facility] Address [address] [place] [address] Care Team Providers Care Progressive Care Unit Registered Nurse Name Role Phone Rico Muñiz MD, Sharan Jaime Primary Care Provider Encounter Details Date Type Department Care Team (Latest Contact Info) Description 09/15/1998 Outpatient Historical [facility] Sharan Gómez Jr., MD [address] [place] [address] Unspecified essential hypertension (Primary Dx); Esophagitis, unspecified; longterm (current) use of anticoagulants; Need vaccination-viral disease Social History Tobacco Use Types Packs/Day Years Used Date Smoking Tobacco: Never Assessed Comments Unknown Sex and Gender Information Value Date Recorded Sex Assigned at Not on file Legal Sex Female 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 I 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 Gender Identity Not on file Sexual Orientation Not on file documented as of this encounter Plan of Treatment Not on file documented as of this encounter Visit Diagnoses Diagnosis Unspecified essential hypertension- Primary 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
--- OUTSIDE RECORDS SUMMARY | 2025-07-07 05:09 | XMS_ITS | Encounter Summary ---
Author Organization [facility] Address [address] [place] [address] Care Team Providers Care Small Parts Shaper Operator Name Role Phone Rico Muñiz MD, Sharan Jaime Primary Care Provider Encounter Details Date Type Department Care Team (Late st Contact Info) Description 06/24/2001 Outpatient Historical [facility] Serge Arrington MD [address] [facility] [address] [place] [address] Unspecified essential hypertension (Primary Dx); Other and unspecified hyperlipidemia Social History Tobacco Use Types Packs/Day Years Used Date Smoking Tobacco: Never Assessed Comments Unknown Sex and Gender Information Value Date Recorded Sex Assigned at Not on file Legal Sex Female 5:42 AM MOTOR PATROL 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
--- OUTSIDE RECORDS SUMMARY | 2025-07-07 05:09 | XMS_ITS | Encounter Summary ---
Author Organization [facility] Address [address] [place] [address] Care Team Providers Care Medical Coding Technician Name Role Phone Rico Muñiz MD, Sharan Jaime Primary Care Provider Encounter Details Date Type Department Care Team (Latest Contact Info) Description 02/16/1999 Outpatient Historical [facility] Sharan Gómez Jr., MD [address] [place] [address] Unspecified essential hypertension (Primary Dx); [facility] (current) use of anticoagulants Social History Tobacco Use Types Packs/Day Years Used Date Smoking Tobacco: Never Assessed Comments Unknown Sex and Gender Information Value Date Recorded Sex Assigned at Not on file Legal Sex Female 5:42 AM LEGAL INSTRUMENTS EXAMINER Gender Identity Not on file Sexual Orientation Not on file documented as of this encounter Plan of Treatment Not on file documented as of this encounter Visit Diagnoses Diagnosis Unspecified essential hypertension- Primary FDC (current) use of anticoagulants Long-term (current) use of anticoagulants documented in this encounter Care Teams Medical Coding Technician Relationship Specialty Start Date End Date Sharan Gómez Jr., MD [address] [place] [address] PCP - General 08/10/05 documented as of this encounter
--- OUTSIDE RECORDS SUMMARY | 2025-07-07 05:09 | XMS_ITS | Encounter Summary ---
Author Organization [facility] Address [address] [place] [address] Care Team Providers Care Lineman A Class Name Role Phone Rico Muñiz MD, Sharan Jaime Primary Care Provider Encounter Details Date Type Department Care Team (Late st Contact Info) Description 10/14/2020 Lab Requisition [facility] [address] [place] [address] Paulina Peterson MD [address] [place] [address] Social History Tobacco Use Types Packs/Day Years Used Date Smoking Tobacco: Never Assessed Comments Unknown Sex and Gender Information Value Date Recorded Sex Assigned at Not on file Legal Sex Female 5:42 AM FOUNDER PRESIDENT AND CEO Gender Identity Not on file Sexual Orientation Not on file documented as of this encounter Plan of Treatment Not on file documented as of this encounter Procedures Procedure Name Priority Date/Time Associated Diagnosis Comments PROTIME-INR Routine 10/14/2020 6:16 AM FOUNDER PRESIDENT AND CEO documented in this encounter Results * (ABNORMAL) PROTIME-INR (10/14/2020 6:16 AM FOUNDER PRESIDENT AND CEO) PROTIME 43.3(H) 11.9 - 15.5 Seconds 10/14/2020 4:10 PM FOUNDER PRESIDENT AND CEO [facility] INR 4.4(H) 0.8 - 1.2 10/14/2020 4:10 PM FOUNDER PRESIDENT AND CEO [facility] Blood Collection / Unknown 10/14/2020 6:16 AM FOUNDER PRESIDENT AND CEO 10/14/2020 3:45 PM FOUNDER PRESIDENT AND CEO Narrative [facility] - 10/14/2020 4:10 PM FOUNDER PRESIDENT AND CEO Expected Values for INR: DVT/PE Goal INR 2.5; range 2.0 - 3.0 Valve Replacement Tissue Goal INR 2.5; range 2.0 - 3.0 Valve Replacement Mechanical Goal INR 3.0; range 2.5 - 3.5 POST-WI Goal INR 2.5; range 2.0 - 3.0 or Goal INR 3.0; range 2.5 - 3.5 Atrial Fibrillation Goal INR 2.5; range 2.0 - 3.0 Ischemic Stroke Goal INR 2.5; range 2.0 - 3.0 For additional information see Guidelines for Anticoagulation available from the pharmacy [facility] Paulina Peterson MD HEMATOLOGY ORDERABLES [facility] smart Result [facility] [address] [place] [address] documented in this encounter Visit Diagnoses Not on filedocumented in this encounter Care Teams Lineman A Class Relationship Specialty Start Date End Date Sharan Gómez Jr., MD [address] [place] [address] PCP - General 08/10/05 documented as of this encounter
--- OUTSIDE RECORDS SUMMARY | 2025-07-07 05:09 | XMS_ITS | Encounter Summary ---
Author Organization [facility] Address [address] [facility] Attn: [place] [address] Care Team Providers Care Hand Plate Stacker Name Role Phone Rico Muñiz MD, Sharan Jaime Primary Care Provider Encounter Details Date Type Department Care Team (Late st Contact Info) Description 05/16/2001 Outpatient Historical Sharan Gómez Jr., MD [address] [place] [address] Social History Tobacco Use Types Packs/Day Years Used Date Smoking Tobacco: Never Assessed Comments Unknown Sex and Gender Information Value Date Recorded Sex Assigned at Not on file Legal Sex Female 5:42 AM IMPROVEMENT ENGINEER Gender Identity Not on file Sexual Orientation Not on file documented as of this encounter Plan of Treatment Not on file documented as of this encounter Visit Diagnoses Not on filedocumented in this encounter Care Teams Hand Plate Stacker Relationship Specialty Start Date End Date Sharan Gómez Jr., MD [address] [place] [address] PCP - General 08/10/05 documented as of this encounter
--- OUTSIDE RECORDS SUMMARY | 2025-07-07 05:09 | XMS_ITS | Encounter Summary ---
Author Organization [facility] Address [address] [place] [address] Care Team Providers Care Silviculture Forester Name Role Phone Rico Muñiz MD, Sharan Jaime Primary Care Provider Encounter Details Date Type Department Care Team (Latest Contact Info) Description 06/24/2001 Outpatient Historical [facility] Int Luis AFaisal Lopez [place] [address] [place] [address] Serge Arrington MD [address] [place] [address] Mitral valve disorder (Primary Dx); Unspecified essential hypertension; Other and unspecified hyperlipidemia; Dizziness and giddiness Social History Tobacco Use Types Packs/Day Years Used Date Smoking Tobacco: Never Assessed Comments Unknown Sex and Gender Information Value Date Recorded Sex Assigned at Not on file Legal Sex Female 5:42 AM PEDIATRIC OCCUPATIONAL THERAPIST Gender Identity Not on file Sexual Orientation Not on file documented as of this encounter Plan of Treatment Not on file documented as of this encounter Visit Diagnoses Diagnosis Mitral valve disorder- Primary Mitral valve disorders Unspecified essential hypertension Other and unspecified hyperlipidemia Dizziness and giddiness documented in this encounter Care Teams Silviculture Forester Relationship Specialty Start Date End Date Sharan Gómez Jr., MD [address] [place] [address] PCP - General 08/10/05 documented as of this encounter
--- OUTSIDE RECORDS SUMMARY | 2025-07-07 05:09 | XMS_ITS | Encounter Summary ---
Author Organization [facility] Address [address] [place] [address] Care Team Providers Care Contract Driver Name Role Phone Rico Muñiz MD, Sharan Jaime Primary Care Provider Encounter Details Date Type Department Care Team (Latest Contact Info) Description 06/28/2000 Outpatient Historical [facility] Sharan Gómez Jr., MD [address] [place] [address] Pure hypercholesterolem (Primary Dx); Hypopotassemia; Heart valve replaced by other means Social History Tobacco Use Types Packs/Day Years Used Date Smoking Tobacco: Never Assessed Comments Unknown Sex and Gender Information Value Date Recorded Sex Assigned at Not on file Legal Sex Female 5:42 AM WORM FARMER Gender Identity Not on file Sexual Orientation Not on file documented as of this encounter Plan of Treatment Not on file documented as of this encounter Visit Diagnoses Diagnosis Pure hypercholesterolem- Primary Pure hypercholesterolemia Hypopotassemia Heart valve replaced by other means documented in this encounter Care Teams Contract Driver Relationship Specialty Start Date End Date Sharan Gómez Jr., MD [address] [place] [address] PCP - General 08/10/05 documented as of this encounter
--- OUTSIDE RECORDS SUMMARY | 2025-07-07 05:09 | XMS_ITS | Encounter Summary ---
Author Organization [facility] Address [address] [facility] Attn: [place] [address] Care Team Providers Care General Maintenance Technician Name Role Phone Rico Muñiz MD, Sharan Jaime Primary Care Provider Encounter Details Date Type Department Care Team (Late st Contact Info) Description 04/07/2002 Outpatient Historical Sharan Gómez Jr., MD [address] [place] [address] Social History Tobacco Use Types Packs/Day Years Used Date Smoking Tobacco: Never Assessed Comments Unknown Sex and Gender Information Value Date Recorded Sex Assigned at Not on file Legal Sex Female 5:42 AM SALES 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
--- OUTSIDE RECORDS SUMMARY | 2025-07-07 05:09 | XMS_ITS | Encounter Summary ---
Author Organization [facility] Address [address] [facility] Attn: [place] [address] Care Team Providers Care Yoghurt Maker Name Role Phone Rico Muñiz MD, Sharan Jaime Primary Care Provider Encounter Details Date Type Department Care Team (Late st Contact Info) Description 08/05/2001 Outpatient Historical Sharan Gómez Jr., MD [address] [place] [address] Social History Tobacco Use Types Packs/Day Years Used Date Smoking Tobacco: Never Assessed Comments Unknown Sex and Gender Information Value Date Recorded Sex Assigned at Not on file Legal Sex Female 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
--- OUTSIDE RECORDS SUMMARY | 2025-07-07 05:09 | XMS_ITS | Encounter Summary ---
Author Organization [facility] Address [address] [facility] Attn: [place] [address] Care Team Providers Care Front Office Java Developer Name Role Phone Rico Muñiz MD, Sharan Jaime Primary Care Provider Encounter Details Date Type Department Care Team (Late st Contact Info) Description 07/23/2002 Outpatient Historical Екатерина Malone MD [address] [place] [address] Social History Tobacco Use Types Packs/Day Years Used Date Smoking Tobacco: Never Assessed Comments Unknown Sex and Gender Information Value Date Recorded Sex Assigned at Not on file Legal Sex Female 5:42 AM MIDWIFE Gender Identity Not on file Sexual Orientation Not on file documented as of this encounter Plan of Treatment Not on file documented as of this encounter Visit Diagnoses Not on filedocumented in this encounter Care Teams Front Office Java Developer Relationship Specialty Start Date End Date Sharan Gómez Jr., MD [address] [place] [address] PCP - General 08/10/05 documented as of this encounter
--- OUTSIDE RECORDS SUMMARY | 2025-07-07 05:09 | XMS_ITS | Encounter Summary ---
Author Organization [facility] Address [address] [place] [address] Care Team Providers Care Scrubber Operator Name Role Phone Rico Muñiz MD, Sharan Jaime Primary Care Provider Encounter Details Date Type Department Care Team (Latest Contact Info) Description 08/06/2006 Outpatient Historical [facility] Int Luis AFaisal Lopez [place] [place] [address] Serge Arrington MD [address] [place] [address] Mitral Valve Disorder (Primary Dx); Other and Unspecified Hyperlipidemia; Screening for Malignant Neoplasm of the Cervix Social History Tobacco Use Types Packs/Day Years Used Date Smoking Tobacco: Never Assessed Comments Unknown Sex and Gender Information Value Date Recorded Sex Assigned at Not on file Legal Sex Female 5:42 AM FIELD IRRIGATION WORKER Gender Identity Not on file Sexual Orientation Not on file documented as of this encounter Plan of Treatment Not on file documented as of this encounter Visit Diagnoses Diagnosis Mitral valve disorder- Primary Mitral valve disorders Other and unspecified hyperlipidemia Screening for malignant neoplasm of the cervix documented in this encounter Care Teams Scrubber Operator Relationship Specialty Start Date End Date Sharan óGmez Jr., MD [address] [place] [address] PCP - General 08/10/05 documented as of this encounter
--- OUTSIDE RECORDS SUMMARY | 2025-07-07 05:09 | XMS_ITS | Encounter Summary ---
Author Organization [facility] Address [address] [facility] Attn: [place] [address] Care Team Providers Care Optical Goods Drilling Machine Operator Name Role Phone Rico Muñiz MD, Sharan Jaime Primary Care Provider Encounter Details Date Type Department Care Team (Late st Contact Info) Description 07/03/2002 Outpatient Historical Екатерина Malone MD [address] [place] [phone] Social History Tobacco Use Types Packs/Day Years Used Date Smoking Tobacco: Never Assessed Comments Unknown Sex and Gender Information Value Date Recorded Sex Assigned at Not on file Legal Sex Female 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 II TUBE BENDER Gender Identity Not on file Sexual Orientation Not on file documented as of this encounter Plan of Treatment Not on file documented as of this encounter Visit Diagnoses Not on filedocumented in this encounter Care Teams Optical Goods Drilling Machine Operator Relationship Specialty Start Date End Date Sharan Gómez Jr., MD [address] [place] [phone] PCP - General 08/10/05 documented as of this encounter
--- OUTSIDE RECORDS SUMMARY | 2025-07-07 05:09 | XMS_ITS | Encounter Summary ---
Author Organization [facility] Address [address] [facility] Attn: Epic Prelude ADT [place] [address] Care Team Providers Care Pattern Illustrator Name Role Phone Rico Muñiz MD, Sharan [...] on file Legal Sex Female 5:42 AM RELATIONS MANAGER Gender Identity Not on file Sexual Orientation Not on file documented as of this encounter Plan of Treatment Not on file documented as of this encounter Visit Diagnoses Not on filedocumented in this encounter Care Teams Pattern Illustrator Relationship Specialty Start Date End Date Sharan Gómez Jr., MD [address] [place] [address] PCP - General 08/10/05 documented as of this encounter
--- OUTSIDE RECORDS SUMMARY | 2025-07-07 05:09 | XMS_ITS | Encounter Summary ---
Author Organization [facility] Address [address] [place] [address] Care Team Providers Care Crayon Sorting Machine Feeder Name Role Phone Rico Muñiz MD, Sharan Jaime Primary Care Provider Encounter Details Date Type Department Care Team (Latest Contact Info) Description 06/24/2001 Outpatient Historical [facility] Services-Faisal [facility] [place] [address] [place] [address] Serge Arrington MD [address] [place] [address] Unspecified congenital anomaly of heart (Primary Dx) Social History Tobacco Use Types Packs/Day Years Used Date Smoking Tobacco: Never Assessed Comments Unknown Sex and Gender Information Value Date Recorded Sex Assigned at Not on file Legal Sex Female 5:42 AM ENERGY DERIVATIVES TRADER Gender Identity Not on file Sexual Orientation Not on file documented as of this encounter Plan of Treatment Not on file documented as of this encounter Visit Diagnoses Diagnosis Unspecified congenital anomaly of heart- Primary documented in this encounter Care Teams Crayon Sorting Machine Feeder Relationship Specialty Start Date End Date Sharan Gómez Jr., MD [address] [place] [address] PCP - General 08/10/05 documented as of this encounter
--- OUTSIDE RECORDS SUMMARY | 2025-07-07 05:09 | XMS_ITS | Encounter Summary ---
Author Organization [facility] Address [address] [place] [address] Care Team Providers Care Paratransit Operator Name Role Phone Rico Muñiz MD, Sharan Jaime Primary Care Provider Encounter Details Date Type Department Care Team (Latest Contact Info) Description 06/26/2003 Outpatient Historical [facility] [place] [place] [address] Serge Arrington MD [address] [place] [address] Mitral valve disorder (Primary Dx); HYPERTENSION NOS; HYPERLIPIDEMIA NEC/NOS; VACCINE FOR STREP PNEUMONIAE Social History Tobacco Use Types Packs/Day Years Used Date Smoking Tobacco: Never Assessed Comments Unknown Sex and Gender Information Value Date Recorded Sex Assigned at Not on file Legal Sex Female 5:42 AM RESOURCE MANAGEMENT SPECIALIST Gender Identity Not on file Sexual [...] (pneumococcus) documented in this encounter Care Teams Paratransit Operator Relationship Specialty Start Date End Date Sharan Gómez Jr., MD [address] [place] [address] PCP - General 08/10/05 documented as of this encounter
--- OUTSIDE RECORDS SUMMARY | 2025-07-07 05:09 | XMS_ITS | Encounter Summary ---
Author Organization [facility] Address [address] [place] [address] Care Team Providers Care Buyers' Agent Name Role Phone Rico Muñiz MD, Sharan Jaime Primary Care Provider Encounter Details Date Type Department Care Team (Latest Contact Info) Description 02/04/2007 Outpatient Historical 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
--- OUTSIDE RECORDS SUMMARY | 2025-07-07 05:09 | XMS_ITS | Encounter Summary ---
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 Social History Tobacco Use Types Packs/Day Years Used Date Smoking Tobacco: Never Assessed Comments Unknown Sex and Gender Information Value Date Recorded Sex Assigned at Not on file Legal Sex Female 5:42 AM BROADCAST FIELD SUPERVISOR Gender Identity Not on file Sexual Orientation Not on file documented as of this encounter Plan of Treatment Not on file documented as of this encounter Visit Diagnoses Diagnosis Acute upper respiratory infections of unspecified site- Primary [facility] (current) use of anticoagulants Long-term (current) use of anticoagulants documented in this encounter Care Teams Binder And Wrapper Packer Relationship Specialty Start Date End Date Sharan Gómez Jr., MD [address] [place] [address] PCP - General 08/10/05 documented as of this encounter
--- OUTSIDE RECORDS SUMMARY | 2025-07-07 05:09 | XMS_ITS | Encounter Summary ---
Author Organization [facility] Address [address] [place] [address] Care Team Providers Care Flour Inspector Name Role Phone Rico Muñiz MD, Sharan Jaime Primary Care Provider Encounter Details Date Type Department Care Team (Latest Contact Info) Description 03/09/2003 Outpatient Historical [facility] [address] [place] [phone] Екатерина Malone MD [address] [place] [address] ABN BLOOD CHEMISTRY NEC (Primary Dx) Social History Tobacco Use Types Packs/Day Years Used Date Smoking Tobacco: Never Assessed Comments Unknown Sex and Gender Information Value Date Recorded Sex Assigned at Not on file Legal Sex Female 5:42 AM SUPERVISOR PIPE MANUFACTURE Gender Identity Not on file Sexual Orientation Not on file documented as of this encounter Plan of Treatment Not on file documented as of this encounter Visit Diagnoses Diagnosis Other abnormal blood chemistry- Primary documented in this encounter Care Teams Flour Inspector Relationship Specialty Start Date End Date Sharan Gómez Jr., MD [address] [place] [address] PCP - General 08/10/05 documented as of this encounter
--- OUTSIDE RECORDS SUMMARY | 2025-07-07 05:09 | XMS_ITS | Encounter Summary ---
Author Organization [facility] Address [address] [place] [address] Care Team Providers Care Strip Cutting Machine Operator Name Role Phone Rico Muñiz MD, Sharan Jaime Primary Care Provider Encounter Details Date Type Department Care Team (Latest Contact Info) Description 07/15/2002 Outpatient Historical [facility] Rafael Lopez [place] [address] [place] [address] Patrick Olsen MD NO ADDRESS ON FILE POSTMENOPAUSAL BLEEDING (Primary Dx); DYSPAREUNIA; SCREENING MAL NEOP-CERVIX Social History Tobacco Use Types Packs/Day Years Used Date Smoking Tobacco: Never Assessed Comments Unknown Sex and Gender Information Value Date Recorded Sex Assigned at Not on file Legal Sex Female 5:42 AM RAVELER Gender Identity Not on file Sexual Orientation Not on file documented as of this encounter Plan of Treatment Not on file documented as of this encounter Visit Diagnoses Diagnosis Postmenopausal bleeding- Primary Dyspareunia Screening for malignant neoplasm of the cervix documented in this encounter Care Teams Strip Cutting Machine Operator Relationship Specialty Start Date End Date Sharan Gómez Jr., MD [address] [place] [address] PCP - General 08/10/05 documented as of this encounter
--- OUTSIDE RECORDS SUMMARY | 2025-07-07 05:09 | XMS_ITS | Encounter Summary ---
Author Organization [facility] Address [address] [place] [address] Care Team Providers Care Relay Tester Name Role Phone Rico Muñiz MD, Sharan Jaime Primary Care Provider Encounter Details Date Type Department Care Team (Latest Contact Info) Description 10/31/2001 Outpatient Historical [facility] Sharan Gómez Jr., MD [address] [place] [address] ATRIAL FIBRILLATION (CMS/HCC) (Primary Dx); [facility] ANTICOAG USE; HEART VALVE REPLAC NEC Social History Tobacco Use Types Packs/Day Years Used Date Smoking Tobacco: Never Assessed Comments Unknown Sex and Gender Information Value Date Recorded Sex Assigned at Not on file Legal Sex Female 5:42 AM ACTIVITIES MANAGER Gender Identity Not on file Sexual Orientation Not on file documented as of this encounter Plan of Treatment Not on file documented as of this encounter Visit Diagnoses Diagnosis Atrial fibrillation (CMS/HCC)- Primary Atrial fibrillation alf (current) use of anticoagulants Long-term (current) use of anticoagulants Heart valve replaced by other means documented in this encounter Care Teams Relay Tester Relationship Specialty Start Date End Date Sharan Gómez Jr., MD [address] [place] [address] PCP - General 08/10/05 documented as of this encounter
--- OUTSIDE RECORDS SUMMARY | 2025-07-07 05:09 | XMS_ITS | Encounter Summary ---
Author Organization [facility] Address [address] [place] [address] Care Team Providers Care Test Design Engineer Name Role Phone Rico Muñiz MD, Sharan Jaime Primary Care Provider Encounter Details Date Type Department Care Team (Latest Contact Info) Description 05/16/2001 Outpatient Historical [facility] Sharan Gómez Jr., MD [address] [place] [address] Unspecified essential hypertension (Primary Dx); senior care (current) use of anticoagulants Social History Tobacco Use Types Packs/Day Years Used Date Smoking Tobacco: Never Assessed Comments Unknown Sex and Gender Information Value Date Recorded Sex Assigned at Not on file Legal Sex Female 5:42 AM DOCUMENT DESIGN SPECIALIST Gender Identity Not on file Sexual Orientation Not on file documented as of this encounter Plan of Treatment Not on file documented as of this encounter Visit Diagnoses Diagnosis Unspecified essential hypertension- Primary senior care (current) use of anticoagulants Long-term (current) use of anticoagulants documented in this encounter Care Teams Test Design Engineer Relationship Specialty Start Date End Date Sharan Gómez Jr., MD [address] [place] [address] PCP - General 08/10/05 documented as of this encounter
--- OUTSIDE RECORDS SUMMARY | 2025-07-07 05:09 | XMS_ITS | Encounter Summary ---
Author Organization [facility] Address [address] [place] [address] Care Team Providers Care Supervisor Frame Sample And Pattern Name Role Phone Rico Muñiz MD, Sharan Jaime Primary Care Provider Encounter Details Date Type Department Care Team (Latest Contact Info) Description 11/05/2006 Outpatient Historical [facility] Luis AFaisal Lopez [place] [place] [address] Serge Arrington MD [address] [place] [address] Mitral Valve Disorder (Primary Dx); Unspecified Essential Hypertension; Other and Unspecified Hyperlipidemia Social History Tobacco Use Types Packs/Day Years Used Date Smoking Tobacco: Never Assessed Comments Unknown Sex and Gender Information Value Date Recorded Sex Assigned at Not on file Legal Sex Female 5:42 AM MANUFACTURING SPECIALIST Gender Identity Not on file Sexual Orientation Not on file documented as of this encounter Plan of Treatment Not on file documented as of this encounter Visit Diagnoses Diagnosis Mitral valve disorder- Primary Mitral valve disorders Unspecified essential hypertension Other and unspecified hyperlipidemia documented in this encounter Care Teams Supervisor Frame Sample And Pattern Relationship Specialty Start Date End Date Sharan Gómez Jr., MD [address] [place] [address] PCP - General 08/10/05 documented as of this encounter
--- OUTSIDE RECORDS SUMMARY | 2025-07-07 05:09 | XMS_ITS | Encounter Summary ---
Author Organization [facility] Address [address] [place] [address] Care Team Providers Care Medical Billing Coder Name Role Phone Rico Muñiz MD, Sharan Jaime Primary Care Provider Encounter Details Date Type Department Care Team (Latest Contact Info) Description 07/04/2005 Outpatient Historical [facility] Imaging Services-Faisal Lopez [place] [address] [place] [address] Serge Arrington MD [address] [place] [address] HYPERTENSION NOS (Primary Dx) Social History Tobacco Use Types Packs/Day Years Used Date Smoking Tobacco: Never Assessed Comments Unknown Sex and Gender Information Value Date Recorded Sex Assigned at Not on file Legal Sex Female 5: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
--- OUTSIDE RECORDS SUMMARY | 2025-07-07 05:09 | XMS_ITS | Encounter Summary ---
Author Organization [facility] Address [address] [place] [address] Care Team Providers Care Salon Stylist Name Role Phone Rico Muñiz MD, Sharan Jaime Primary Care Provider Encounter Details Date Type Department Care Team (Late st Contact Info) Description 07/02/2001 Outpatient Historical [facility] Serge Arrington MD [address] [facility] [address] [place] [phone] Encounter for long-term (current) use of other medications (Primary Dx); Unspecified essential hypertension Social History Tobacco Use Types Packs/Day Years Used Date Smoking Tobacco: Never Assessed Comments Unknown Sex and Gender Information Value Date Recorded Sex Assigned at Not on file Legal Sex Female 5:42 AM JUNIOR ADMINISTRATIVE ASSISTANT Gender Identity Not on file Sexual Orientation Not on file documented as of this encounter Plan of Treatment Not on file documented as of this encounter Visit Diagnoses Diagnosis Encounter for long-term (current) use of other medications- Primary Unspecified essential hypertension documented in this encounter Care Teams Salon Stylist Relationship Specialty Start Date End Date Sharan Gómez Jr., MD [address] [place] [address] PCP - General 08/10/05 documented as of this encounter
--- OUTSIDE RECORDS SUMMARY | 2025-07-07 05:09 | XMS_ITS | Encounter Summary ---
Author Organization [facility] Address [address] [place] [address] Care Team Providers Care Hydrogen Plant Operations Manager Name Role Phone Rico Muñiz MD, Sharan Jaime Primary Care Provider Encounter Details Date Type Department Care Team (Latest Contact Info) Description 08/05/2001 Outpatient Historical [facility] Sharan Gómez Jr., MD [address] [place] [address] Generalized anxiety disorder (Primary Dx); Hypopotassemia Social History Tobacco Use Types Packs/Day Years Used Date Smoking Tobacco: Never Assessed Comments Unknown Sex and Gender Information Value Date Recorded Sex Assigned at Not on file Legal Sex Female 5:42 AM DIRECTOR OF MARKET ANALYSIS Gender Identity Not on file Sexual Orientation Not on file documented as of this encounter Plan of Treatment Not on file documented as of this encounter Visit Diagnoses Diagnosis Generalized anxiety disorder- Primary Hypopotassemia documented in this encounter Care Teams Hydrogen Plant Operations Manager Relationship Specialty Start Date End Date Sharan Gómez Jr., MD [address] [place] [address] PCP - General 08/10/05 documented as of this encounter
--- OUTSIDE RECORDS SUMMARY | 2025-07-07 05:09 | XMS_ITS | Encounter Summary ---
Author Organization [facility] Address [address] [place] [address] Care Team Providers Care Hospice Plan Administrator Name Role Phone Rico Muñiz MD, Sharan Jaime Primary Care Provider Encounter Details Date Type Department Care Team (Latest Contact Info) Description 01/14/1999 Outpatient Historical [facility] Sharan Gómez Jr., MD [address] [place] [address] Spasm of muscle (Primary Dx) Social History Tobacco Use Types Packs/Day Years Used Date Smoking Tobacco: Never Assessed Comments Unknown Sex and Gender Information Value Date Recorded Sex Assigned at Not on file Legal Sex Female 5:42 AM 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
--- OUTSIDE RECORDS SUMMARY | 2025-07-07 05:09 | XMS_ITS | Encounter Summary ---
Author Organization [facility] Address [address] [place] [address] Care Team Providers Care Fisher Oyster Name Role Phone Rico Muñiz MD, Sharan Jaime Primary Care Provider Encounter Details Date Type Department Care Team (Latest Contact Info) Description 04/07/2002 Outpatient Historical [facility] Sharan Gómez Jr., MD [address] [place] [address] ENDOCARDITIS NOS (Primary Dx); DIABETES UNCOMPL ADULT-TYPE II (CMS/HCC); HYPERTENSION NOS; [facility] ANTICOAG USE Social History Tobacco Use Types Packs/Day Years Used Date Smoking Tobacco: Never Assessed Comments Unknown Sex and Gender Information Value Date Recorded Sex Assigned at Not on file Legal Sex Female 5:42 AM TURBINE ATTENDANT Gender Identity Not on file Sexual Orientation Not on file documented as of this encounter Plan of Treatment Not on file documented as of this encounter Visit Diagnoses Diagnosis Endocarditis, valve unspecified, unspecified cause- Primary Type II or unspecified type diabetes mellitus without mention of complication, not stated as uncontrolled Unspecified essential hypertension financial administrator (current) use of anticoagulants Long-term (current) use of anticoagulants documented in this encounter Care Teams Fisher Oyster Relationship Specialty Start Date End Date Sharan Gómez Jr., MD [address] [place] [address] PCP - General 08/10/05 documented as of this encounter
--- OUTSIDE RECORDS SUMMARY | 2025-07-07 05:09 | XMS_ITS | Encounter Summary ---
Author Organization [facility] Address [address] [place] [address] Care Team Providers Care Mother Helper Name Role Phone Rico Muñiz MD, Sharan Jaime Primary Care Provider Encounter Details Date Type Department Care Team (Latest Contact Info) Description 08/06/2006 Outpatient Historical [facility] Luis AFaisal Lopez [place] [place] [address] Serge Arrington MD [address] [place] [address] Routine Gynecological Examination (Primary Dx) Social History Tobacco Use Types Packs/Day Years Used Date Smoking Tobacco: Never Assessed Comments Unknown Sex and Gender Information Value Date Recorded Sex Assigned at Not on file Legal Sex Female 5:42 AM NICU RN Gender Identity Not on file Sexual Orientation Not on file documented as of this encounter Plan of Treatment Not on file documented as of this encounter Visit Diagnoses Diagnosis Routine gynecological examination- Primary documented in this encounter Care Teams Mother Helper Relationship Specialty Start Date End Date Sharan Gómez Jr., MD [address] [place] [address] PCP - General 08/10/05 documented as of this encounter
--- OUTSIDE RECORDS SUMMARY | 2025-07-07 05:09 | XMS_ITS | Encounter Summary ---
Author Organization [facility] Address [address] [place] [address] Care Team Providers Care Rn Sexual Assault Name Role Phone Rico Muñiz MD, Shraan Jaime Primary Care Provider Encounter Details Date Type Department Care Team (Latest Contact Info) Description 07/06/2006 Outpatient Historical [facility] [address] [place] [address] Jennifer Cash MD NO ADDRESS ON FILE Unspecified Essential Hypertension (Primary Dx); Other and Unspecified Hyperlipidemia; Hypercalcemia; Routine Medical Exam Social History Tobacco Use Types Packs/Day Years Used Date Smoking Tobacco: Never Assessed Comments Unknown Sex and Gender Information Value Date Recorded Sex Assigned at Not on file Legal Sex Female 5:42 AM ARTS ADMINISTRATOR Gender Identity Not on file Sexual Orientation Not on file documented as of this encounter Plan of Treatment Not on file documented as of this encounter Visit Diagnoses Diagnosis Unspecified essential hypertension- Primary Other and unspecified hyperlipidemia Hypercalcemia Routine medical exam Routine general medical examination at a health care facility documented in this encounter Care Teams Rn Sexual Assault Relationship Specialty Start Date End Date Sharan Gómez Jr., MD [address] [place] [address] PCP - General 08/10/05 documented as of this encounter
--- OUTSIDE RECORDS SUMMARY | 2025-07-07 05:09 | XMS_ITS | Encounter Summary ---
Author Organization [facility] Address [address] [place] [address] Care Team Providers Care Tumbling Instructor Name Role Phone Rico Muñiz MD, Sharan Jaime Primary Care Provider Encounter Details Date Type Department Care Team (Latest Contact Info) Description 06/24/2002 Outpatient Historical [facility] [address] [place] [address] Serge Arrington MD [address] [place] [address] Mitral valve disorder (Primary Dx); CORONARY ATHEROSCLER UNSPEC VESSEL; HYPERTENSION NOS; HYPERLIPIDEMIA NEC/NOS Social History Tobacco Use Types Packs/Day Years Used Date Smoking Tobacco: Never Assessed Comments Unknown Sex and Gender Information Value Date Recorded Sex Assigned at Not on file Legal Sex Female 5:42 AM STICK ROLLER Gender Identity Not on file Sexual Orientation Not on file documented as of this encounter Plan of Treatment Not on file documented as of this encounter Visit Diagnoses Diagnosis Mitral valve disorder- Primary Mitral valve disorders Coronary atherosclerosis of unspecified type of vessel, [place] or graft Unspecified essential hypertension Other and unspecified hyperlipidemia documented in this encounter Care Teams Tumbling Instructor Relationship Specialty Start Date End Date Sharan Gómez Jr., MD [address] [place] [address] PCP - General 08/10/05 documented as of this encounter
--- OUTSIDE RECORDS SUMMARY | 2025-07-07 05:09 | XMS_ITS | Encounter Summary ---
Author Organization [facility] Address [address] [place] [address] Care Team Providers Care General Ledger Bookkeeper Name Role Phone Rico Muñiz MD, Sharan Jaime Primary Care Provider Encounter Details Date Type Department Care Team (Latest Contact Info) Description 06/26/2003 Outpatient Historical [facility] Imaging Services-Faisal [facility] [place] [address] [place] [address] Serge Arrington MD [address] [place] [address] HYPERTENSION NOS (Primary Dx); Routine medical exam Social History Tobacco Use Types Packs/Day Years Used Date Smoking Tobacco: Never Assessed Comments Unknown Sex and Gender Information Value Date Recorded Sex Assigned at Not on file Legal Sex Female 5:42 AM 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
--- OUTSIDE RECORDS SUMMARY | 2025-07-07 05:09 | XMS_ITS | Encounter Summary ---
Author Organization [facility] Address [address] [place] [address] Care Team Providers Care Welding Teacher Name Role Phone Rico Muñiz MD, Sharan Jaime Primary Care Provider Encounter Details Date Type Department Care Team (Late st Contact Info) Description 10/15/2020 Lab Requisition [facility] Laboratory Services [address] [place] [address] Paulina Petesron MD [address] [place] [address] Social History Tobacco Use Types Packs/Day Years Used Date Smoking Tobacco: Never Assessed Comments Unknown Sex and Gender Information Value Date Recorded Sex Assigned at Not on file Legal Sex Female 5:42 AM LEAD PHP DEVELOPER Gender Identity Not on file Sexual Orientation Not on file documented as of this encounter Plan of Treatment Not on file documented as of this encounter Procedures Procedure Name Priority Date/Time Associated Diagnosis Comments PROTIME-INR Routine 10/15/2020 4:40 AM LEAD PHP DEVELOPER documented in this encounter Results * (ABNORMAL) PROTIME-INR (10/15/2020 4:40 AM LEAD PHP DEVELOPER) PROTIME 46.6(H) 11.9 - 15.5 Seconds 10/15/2020 4:26 PM LEAD PHP DEVELOPER [facility] INR 4.9(H) 0.8 - 1.2 10/15/2020 4:26 PM LEAD PHP DEVELOPER [facility] Blood Collection / Unknown 10/15/2020 4:40 AM LEAD PHP DEVELOPER 10/15/2020 4:01 PM LEAD PHP DEVELOPER Narrative [facility] - 10/15/2020 4:26 PM LEAD PHP DEVELOPER Expected Values for INR: DVT/PE Goal INR 2.5; range 2.0 - 3.0 Valve Replacement Tissue Goal INR 2.5; range 2.0 - 3.0 Valve Replacement Mechanical Goal INR 3.0; range 2.5 - 3.5 POST-PA Goal INR 2.5; range 2.0 - 3.0 or Goal INR 3.0; range 2.5 - 3.5 Atrial Fibrillation Goal INR 2.5; range 2.0 - 3.0 Ischemic Stroke Goal INR 2.5; range 2.0 - 3.0 For additional information see Guidelines for Anticoagulation available from the pharmacy [facility] Paulina Peterson MD HEMATOLOGY ORDERABLES [facility] smart Result [facility] [address] [place] [address] documented in this encounter Visit Diagnoses Not on filedocumented in this encounter Care Teams Welding Teacher Relationship Specialty Start Date End Date Sharan Gómez Jr., MD [address] [place] [address] PCP - General 08/10/05 documented as of this encounter
--- OUTSIDE RECORDS SUMMARY | 2025-07-07 05:09 | XMS_ITS | Encounter Summary ---
Author Organization [facility] Address [address] [place] [address] Care Team Providers Care Writing Manager Name Role Phone Rico Muñiz MD, Sharan Jaime Primary Care Provider Encounter Details Date Type Department Care Team (Latest Contact Info) Description 06/29/2004 Outpatient Historical [facility] Int Luis AFaisal Lopez [place] [address] [place] [address] Serge Arrington MD [address] [place] [address] Mitral valve disorder (Primary Dx); HYPERTENSION NOS; HYPERLIPIDEMIA NEC/NOS; OSTEOPOROSIS NOS Social History Tobacco Use Types Packs/Day Years Used Date Smoking Tobacco: Never Assessed Comments Unknown Sex and Gender Information Value Date Recorded Sex Assigned at Not on file Legal Sex Female 5:42 AM SUPERVISOR LEAF SPRING FABRICATION Gender Identity Not on file Sexual Orientation Not on file documented as of this encounter Plan of Treatment Not on file documented as of this encounter Visit Diagnoses Diagnosis Mitral valve disorder- Primary Mitral valve disorders Unspecified essential hypertension Other and unspecified hyperlipidemia Osteoporosis, unspecified documented in this encounter Care Teams Writing Manager Relationship Specialty Start Date End Date Sharan Gómez Jr., MD [address] [place] [phone] PCP - General 08/10/05 documented as of this encounter
--- OUTSIDE RECORDS SUMMARY | 2025-07-07 05:09 | XMS_ITS | Encounter Summary ---
Author Organization [facility] Address [address] [facility] Attn: [place] [address] Care Team Providers Care Rn Coronary Care Unit Name Role Phone Rico Muñiz MD, Sharan Jaime Primary Care Provider Encounter Details Date Type Department Care Team (Late st Contact Info) Description 04/23/2002 Outpatient Historical Sharan Gómez Jr., MD [address] [place] [address] Social History Tobacco Use Types Packs/Day Years Used Date Smoking Tobacco: Never Assessed Comments Unknown Sex and Gender Information Value Date Recorded Sex Assigned at Not on file Legal Sex Female 5:42 AM SCIENTIFIC ADVISOR Gender Identity Not on file Sexual Orientation Not on file documented as of this encounter Plan of Treatment Not on file documented as of this encounter Visit Diagnoses Not on filedocumented in this encounter Care Teams Rn Coronary Care Unit Relationship Specialty Start Date End Date Sharan Gómez Jr., MD [address] [place] [address] PCP - General 08/10/05 documented as of this encounter
--- OUTSIDE RECORDS SUMMARY | 2025-07-07 05:09 | XMS_ITS | Encounter Summary ---
Author Organization [facility] Address [address] [facility] Attn: [place] [address] Care Team Providers Care Information Systems Consultant Name Role Phone Rico Muñiz MD, Sharan Jaime Primary Care Provider Encounter Details Date Type Department Care Team (Late st Contact Info) Description 06/22/2000 Outpatient Historical Serge Arrington MD [address] [facility] [address] [place] [address] Social History Tobacco Use Types Packs/Day Years Used Date Smoking Tobacco: Never Assessed Comments Unknown Sex and Gender Information Value Date Recorded Sex Assigned at Not on file Legal Sex Female 5:42 AM SUPERVISOR SAWMILL Gender Identity Not on file Sexual Orientation Not on file documented as of this encounter Plan of Treatment Not on file documented as of this encounter Visit Diagnoses Not on filedocumented in this encounter Care Teams Information Systems Consultant Relationship Specialty Start Date End Date Sharan Gómez Jr., MD [address] [place] [address] PCP - General 08/10/05 documented as of this encounter
--- OUTSIDE RECORDS SUMMARY | 2025-07-07 05:09 | XMS_ITS | Encounter Summary ---
Author Organization [facility] Address [address] [place] [address] Care Team Providers Care Loan Underwriter Name Role Phone Rico Muñiz MD, Sharan Jaime Primary Care Provider Encounter Details Date Type Department Care Team (Latest Contact Info) Description 11/14/2001 Outpatient Historical [facility] Sharan Gómez Jr., MD [address] [place] [address] OSTEOARTHROS NOS-UNSPEC (Primary Dx); HEART VALVE REPLAC NEC Social History Tobacco Use Types Packs/Day Years Used Date Smoking Tobacco: Never Assessed Comments Unknown Sex and Gender Information Value Date Recorded Sex Assigned at Not on file Legal Sex Female 5:42 AM CURATOR OF EDUCATION Gender Identity Not on file Sexual Orientation Not on file documented as of this encounter Plan of Treatment Not on file documented as of this encounter Visit Diagnoses Diagnosis Osteoarthrosis, unspecified whether generalized or localized, unspecified site- Primary Heart valve replaced by other means documented in this encounter Care Teams Loan Underwriter Relationship Specialty Start Date End Date Sharan Gómez Jr., MD [address] [place] [address] PCP - General 08/10/05 documented as of this encounter
--- OUTSIDE RECORDS SUMMARY | 2025-07-07 05:09 | XMS_ITS | Encounter Summary ---
Author Organization [facility] Address [address] [place] [address] Care Team Providers Care Jig Filler Name Role Phone Rico Muñiz MD, Sharan Jaime Primary Care Provider Encounter Details Date Type Department Care Team (Latest Contact Info) Description 03/03/2002 Outpatient Historical [facility] Sharan Gómez Jr., MD [address] [place] [address] HYPERTENSION NOS (Primary Dx); ENDOCARDITIS NOS; AFTERCARE [facility] ANTICOAG USE; FAMILY HX-DIABETES MELLITUS Social History Tobacco Use Types Packs/Day Years Used Date Smoking Tobacco: Never Assessed Comments Unknown Sex and Gender Information Value Date Recorded Sex Assigned at Not on file Legal Sex Female 5:42 AM TOOL MACHINIST Gender Identity Not on file Sexual Orientation Not on file documented as of this encounter Plan of Treatment Not on file documented as of this encounter Visit Diagnoses Diagnosis Unspecified essential hypertension- Primary Endocarditis, valve unspecified, unspecified cause terminal computer operator (current) use of anticoagulants Long-term (current) use of anticoagulants Family history of diabetes mellitus documented in this encounter Care Teams Jig Filler Relationship Specialty Start Date End Date Sharan Gómez Jr., MD [address] [place] [address] PCP - General 08/10/05 documented as of this encounter
--- OUTSIDE RECORDS SUMMARY | 2025-07-07 05:09 | XMS_ITS | Encounter Summary ---
Author Organization [facility] Address [address] [place] [address] Care Team Providers Care Mainframe Developer Name Role Phone Rico Muñiz MD, Sharan Jaime Primary Care Provider Encounter Details Date Type Department Care Team (Latest Contact Info) Description 11/05/2003 Outpatient Historical [facility] [address] [place] [address] Екатерина Malone MD [address] [place] [address] HYPERLIPIDEMIA NEC/NOS (Primary Dx) Social History Tobacco Use Types Packs/Day Years Used Date Smoking Tobacco: Never Assessed Comments Unknown Sex and Gender Information Value Date Recorded Sex Assigned at Not on file Legal Sex Female 5:42 AM BUSINESS CONTINUITY STRATEGY DIRECTOR Gender Identity Not on file Sexual Orientation Not on file documented as of this encounter Plan of Treatment Not on file documented as of this encounter Visit Diagnoses Diagnosis Other and unspecified hyperlipidemia- Primary documented in this encounter Care Teams Mainframe Developer Relationship Specialty Start Date End Date Sharan Gómez Jr., MD [address] [place] [address] PCP - General 08/10/05 documented as of this encounter
--- OUTSIDE RECORDS SUMMARY | 2025-07-07 05:09 | XMS_ITS | Encounter Summary ---
Author Organization [facility] Address [address] [place] [address] Care Team Providers Care Activities Assistant Name Role Phone Rico Muñiz MD, Sharan Jaime Primary Care Provider Encounter Details Date Type Department Care Team (Latest Contact Info) Description 06/28/2001 Outpatient Historical [facility] Sharan Gómez Jr., MD [address] [place] [address] Esophageal reflux (Primary Dx); Heart valve replaced by other means Social History Tobacco Use Types Packs/Day Years Used Date Smoking Tobacco: Never Assessed Comments Unknown Sex and Gender Information Value Date Recorded Sex Assigned at Not on file Legal Sex Female 5:42 AM SUPPORT SERVICES TECH Gender Identity Not on file Sexual Orientation Not on file documented as of this encounter Plan of Treatment Not on file documented as of this encounter Visit Diagnoses Diagnosis Esophageal reflux- Primary Heart valve replaced by other means documented in this encounter Care Teams Activities Assistant Relationship Specialty Start Date End Date Sharan Gómez Jr., MD [address] [place] [address] PCP - General 08/10/05 documented as of this encounter
--- OUTSIDE RECORDS SUMMARY | 2025-07-07 05:09 | XMS_ITS | Encounter Summary ---
Author Organization [facility] Address [address] [place] [address] Care Team Providers Care Health Educator Name Role Phone Rico Muñiz MD, Sharan Jaime Primary Care Provider Encounter Details Date Type Department Care Team (Latest Contact Info) Description 12/20/2001 Outpatient Historical [facility] Sharan Gómez Jr., MD [address] [place] [address] WHEEZING (Primary Dx); HEART VALVE REPLAC NEC; AFTERCARE [facility] ANTICOAG USE Social History Tobacco Use Types Packs/Day Years Used Date Smoking Tobacco: Never Assessed Comments Unknown Sex and Gender Information Value Date Recorded Sex Assigned at Not on file Legal Sex Female 5:42 AM ARCHITECTURAL DESIGN PROFESSOR Gender Identity Not on file Sexual Orientation Not on file documented as of this encounter Plan of Treatment Not on file documented as of this encounter Visit Diagnoses Diagnosis Wheezing- Primary Heart valve replaced by other means residential (current) use of anticoagulants Long-term (current) use of anticoagulants documented in this encounter Care Teams Health Educator Relationship Specialty Start Date End Date Sharan Gómez Jr., MD [address] [facility] [place] [address] PCP - General 08/10/05 documented as of this encounter
--- OUTSIDE RECORDS SUMMARY | 2025-07-07 05:09 | XMS_ITS | Encounter Summary ---
Author Organization [facility] Address [address] [facility] Attn: [place] [address] Care Team Providers Care Lathmaker Name Role Phone Rico Muñiz MD, Sharan Jaime Primary Care Provider Encounter Details Date Type Department Care Team (Late st Contact Info) Description 12/20/2001 Outpatient Historical Sharan Gómez Jr., MD [address] [place] [address] Social History Tobacco Use Types Packs/Day Years Used Date Smoking Tobacco: Never Assessed Comments Unknown Sex and Gender Information Value Date Recorded Sex Assigned at Not on file Legal Sex Female 5:42 AM PORTRAIT PAINTER Gender Identity Not on file Sexual Orientation Not on file documented as of this encounter Plan of Treatment Not on file documented as of this encounter Visit Diagnoses Not on filedocumented in this encounter Care Teams Lathmaker Relationship Specialty Start Date End Date Sharan Gómez Jr., MD [address] [place] [address] PCP - General 08/10/05 documented as of this encounter
--- OUTSIDE RECORDS SUMMARY | 2025-07-07 05:09 | XMS_ITS | Encounter Summary ---
Author Organization [facility] Address [address] [place] [address] Care Team Providers Care Mud Jack Nozzleman Name Role Phone Rico Muñiz MD, Sharan Jaime Primary Care Provider Encounter Details Date Type Department Care Team (Latest Contact Info) Description 02/03/2002 Outpatient Historical [facility] Sharan Gómez Jr., MD [address] [place] [address] HEART VALVE REPLAC NEC (Primary Dx); AFTERCARE [facility] ANTICOAG USE Social History Tobacco Use Types Packs/Day Years Used Date Smoking Tobacco: Never Assessed Comments Unknown Sex and Gender Information Value Date Recorded Sex Assigned at Not on file Legal Sex Female 5:42 AM CHARGER OPERATOR Gender Identity Not on file Sexual Orientation Not on file documented as of this encounter Plan of Treatment Not on file documented as of this encounter Visit Diagnoses Diagnosis Heart valve replaced by other means- Primary long term care phlebotomist (current) use of anticoagulants Long-term (current) use of anticoagulants documented in this encounter Care Teams Mud Jack Nozzleman Relationship Specialty Start Date End Date Sharan Gómez Jr., MD [address] [place] [address] PCP - General 08/10/05 documented as of this encounter
--- OUTSIDE RECORDS SUMMARY | 2025-07-07 05:10 | XMS_ITS | Encounter Summary ---
Author Organization [facility] Address [address] [facility] Attn: [place] [address] Care Team Providers Care Systems Coordinator Name Role Phone Rico Muñiz MD, Sharan Jaime Primary Care Provider Encounter Details Date Type Department Care Team (Late st Contact Info) Description 11/09/2000 Outpatient Historical Sharan Gómez Jr., MD [address] [place] [address] Social History Tobacco Use Types Packs/Day Years Used Date Smoking Tobacco: Never Assessed Comments Unknown Sex and Gender Information Value Date Recorded Sex Assigned at Not on file Legal Sex Female 5:42 AM SQUARING SHEAR OPERATOR Gender Identity Not on file Sexual Orientation Not on file documented as of this encounter Plan of Treatment Not on file documented as of this encounter Visit Diagnoses Not on filedocumented in this encounter Care Teams Systems Coordinator Relationship Specialty Start Date End Date Sharan Gómez Jr., MD [address] [place] [address] PCP - General 08/10/05 documented as of this encounter
--- OUTSIDE RECORDS SUMMARY | 2025-07-07 05:10 | XMS_ITS | Clinical Summary ---
Author Organization [facility] Address [address] [place] [address] Phone Care Team Providers Care Combat Control Manager Name Role Phone Rico Muñiz MD, [...] file Legal Sex Female 5:42 AM PROJECT MANAGEMENT SPECIALIST Gender Identity Not on file [...] AND BLUE SHIELD [place]ID [place] Care Teams Combat Control Manager Relationship Specialty Start Date End Date Sharan Gómez Jr., MD [address] [place] [address] PCP - General 08/10/05
--- OUTSIDE RECORDS SUMMARY | 2025-07-07 05:10 | XMS_ITS | Encounter Summary ---
Author Organization [facility] Address [address] [place] [address] Care Team Providers Care Pull Over Machine Operator Name Role Phone Rico Muñiz MD, Sharan Jaime Primary Care Provider Encounter Details Date Type Department Care Team (Latest Contact Info) Description 12/31/2000 Outpatient Historical [facility] Medicine [place] [address] [facility] [address] [place] [address] Larry Olvera MD Screening for malignant neoplasm of the rectum (Primary Dx) Social History Tobacco Use Types Packs/Day Years Used Date Smoking Tobacco: Never Assessed Comments Unknown Sex and Gender Information Value Date Recorded Sex Assigned at Not on file Legal Sex Female 5:42 AM DIE PRESS OPERATOR Gender Identity Not on file Sexual Orientation Not on file documented as of this encounter Plan of Treatment Not on file documented as of this encounter Visit Diagnoses Diagnosis Screening for malignant neoplasm of the rectum- Primary documented in this encounter Care Teams Pull Over Machine Operator Relationship Specialty Start Date End Date Sharan Gómez Jr., MD [address] [place] [place] [address] PCP - General 08/10/05 documented as of this encounter
--- OUTSIDE RECORDS SUMMARY | 2025-07-07 05:10 | XMS_ITS | Encounter Summary ---
Author Organization [facility] Address [address] [place] [address] Care Team Providers Care Surgical Services Tech Name Role Phone Rico Muñiz MD, Sharan Jamie Primary Care Provider Encounter Details Date Type Department Care Team (Latest Contact Info) Description 04/18/1999 Outpatient Historical 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) use of anticoagulants Social History Tobacco Use Types Packs/Day Years Used Date Smoking Tobacco: Never Assessed Comments Unknown Sex and Gender Information Value Date Recorded Sex Assigned at Not on file Legal Sex Female 5:42 AM SHOE COBBLER Gender Identity Not on file Sexual Orientation Not on file documented as of this encounter Plan of Treatment Not on file documented as of this encounter Visit Diagnoses Diagnosis Headache(784.0)- Primary Headache Unspecified essential hypertension group home (current) use of anticoagulants Long-term (current) use of anticoagulants documented in this encounter Care Teams Surgical Services Tech Relationship Specialty Start Date End Date Sharan Gómez Jr., MD [address] [place] [address] PCP - General 08/10/05 documented as of this encounter
--- OUTSIDE RECORDS SUMMARY | 2025-07-07 05:10 | XMS_ITS | Encounter Summary ---
Author Organization [facility] Address [address] [place] [address] Care Team Providers Care Meter Record Clerk Name Role Phone Rico Muñiz MD, Sharan Jaime Primary Care Provider Encounter Details Date Type Department Care Team (Late st Contact Info) Description 06/21/2000 Outpatient Historical [facility] Serge Arrington MD [address] 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
--- OUTSIDE RECORDS SUMMARY | 2025-07-07 05:10 | XMS_ITS | Encounter Summary ---
Author Organization [facility] Address [address] [place] [address] Care Team Providers Care Cardiac Rn Name Role Phone Rico Muñiz MD, Sharan Jaime Primary Care Provider Encounter Details Date Type Department Care Team (Latest Contact Info) Description 12/26/1999 Outpatient Historical [facility] Sharan Gómez Jr., MD [address] [place] [address] ASCVD (Primary Dx); Esophageal reflux; Unspecified essential hypertension; detention (current) use of anticoagulants Social History Tobacco Use Types Packs/Day Years Used Date Smoking Tobacco: Never Assessed Comments Unknown Sex and Gender Information Value Date Recorded Sex Assigned at Not on file Legal Sex Female 5:42 AM HUMAN RESOURCES 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
--- OUTSIDE RECORDS SUMMARY | 2025-07-07 05:10 | XMS_ITS | Encounter Summary ---
Author Organization [facility] Address [address] [place] [address] Care Team Providers Care Dictating Transcribing Machine Servicer Name Role Phone Rico Muñiz MD, Sharan Jaime Primary Care Provider Encounter Details Date Type Department Care Team (Latest Contact Info) Description 05/18/1999 Outpatient Historical [facility] Sharan Gómez Jr., MD [address] [place] [address] Osteoarthrosis, unspecified whether generalized or localized, unspecified site (Primary Dx); custodial (current) use of anticoagulants; Heart valve replaced by other means Social History Tobacco Use Types Packs/Day Years Used Date Smoking Tobacco: Never Assessed Comments Unknown Sex and Gender Information Value Date Recorded Sex Assigned at Not on file Legal Sex Female 5:42 AM APPLE PICKING SUPERVISOR Gender Identity Not on file Sexual Orientation Not on file documented as of this encounter Plan of Treatment Not on file documented as of this encounter Visit Diagnoses Diagnosis Osteoarthrosis, unspecified whether generalized or localized, unspecified site- Primary 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
--- OUTSIDE RECORDS SUMMARY | 2025-07-07 05:10 | XMS_ITS | Encounter Summary ---
Author Organization [facility] Address [address] [place] [address] Care Team Providers Care Obstetrics Gynecology Physician Name Role Phone Rico Muñiz MD, Sharan Jaime Primary Care Provider Encounter Details Date Type Department Care Team (Late st Contact Info) Description 07/30/2000 Outpatient Historical [facility] Social History Tobacco Use Types Packs/Day Years Used Date Smoking Tobacco: Never Assessed Comments Unknown Sex and Gender Information Value Date Recorded Sex Assigned at Not on file Legal Sex Female 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 BOOKBINDER Gender Identity Not on file Sexual Orientation Not on file documented as of this encounter Plan of Treatment Not on file documented as of this encounter Visit Diagnoses Not on filedocumented in this encounter Care Teams Obstetrics Gynecology Physician Relationship Specialty Start Date End Date Sharan Gómez Jr., MD [address] [place] [address] PCP - General 08/10/05 documented as of this encounter
--- OUTSIDE RECORDS SUMMARY | 2025-07-07 05:10 | XMS_ITS | Encounter Summary ---
Author Organization [facility] Address [address] [place] [address] Care Team Providers Care Agent Contract Clerk Name Role Phone Rico Muñiz MD, Sharan Jaime Primary Care Provider Encounter Details Date Type Department Care Team (Latest Contact Info) Description 05/24/2000 Outpatient Historical [facility] Sharan Gómez Jr., MD [address] [place] [address] Unspecified essential hypertension (Primary Dx); Osteoporosis, unspecified Social History Tobacco Use Types Packs/Day Years Used Date Smoking Tobacco: Never Assessed Comments Unknown Sex and Gender Information Value Date Recorded Sex Assigned at Not on file Legal Sex Female 5:42 AM FIBREGLASS GUN HAND Gender Identity Not on file Sexual Orientation Not on file documented as of this encounter Plan of Treatment Not on file documented as of this encounter Visit Diagnoses Diagnosis Unspecified essential hypertension- Primary Osteoporosis, unspecified documented in this encounter Care Teams Agent Contract Clerk Relationship Specialty Start Date End Date Sharan Gómez Jr., MD [address] [place] [address] PCP - General 08/10/05 documented as of this encounter
--- OUTSIDE RECORDS SUMMARY | 2025-07-07 05:10 | XMS_ITS | Encounter Summary ---
Author Organization [facility] Address [address] [place] [address] Care Team Providers Care Internet Marketing Intern Name Role Phone Rico Muñiz MD, Sharan Jaime Primary Care Provider Encounter Details Date Type Department Care Team (Latest Contact Info) Description 10/26/1999 Outpatient Historical [facility] Sharan Gómez Jr., MD [address] [place] [address] Endocarditis, valve unspecified, unspecified cause (Primary Dx); Osteoporosis, unspecified Social History Tobacco Use Types Packs/Day Years Used Date Smoking Tobacco: Never Assessed Comments Unknown Sex and Gender Information Value Date Recorded Sex Assigned at Not on file Legal Sex Female 5: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
--- OUTSIDE RECORDS SUMMARY | 2025-07-07 05:10 | XMS_ITS | Encounter Summary ---
Author Organization [facility] Address [address] [place] [address] Care Team Providers Care Switch Engineer Name Role Phone Rico Muñiz MD, Sharan Jaime Primary Care Provider Encounter Details Date Type Department Care Team (Latest Contact Info) Description 01/30/2001 Outpatient Historical [facility] Sharan Gómez Jr., MD [address] [place] [address] Endocarditis, valve unspecified, unspecified cause (Primary Dx); Acute sinusitis, unspecified; Bronchitis, not specified as acute or chronic Social History Tobacco Use Types Packs/Day Years Used Date Smoking Tobacco: Never Assessed Comments Unknown Sex and Gender Information Value Date Recorded Sex Assigned at Not on file Legal Sex Female 5:42 AM WEIGHT AND TEST BAR CLERK Gender Identity Not on file Sexual Orientation Not on file documented as of this encounter Plan of Treatment Not on file documented as of this encounter Visit Diagnoses Diagnosis Endocarditis, valve unspecified, unspecified cause- Primary Acute sinusitis, unspecified Bronchitis, not specified as acute or chronic documented in this encounter Care Teams Switch Engineer Relationship Specialty Start Date End Date Sharan Gómez Jr., MD [address] [place] [address] PCP - General 08/10/05 documented as of this encounter
--- OUTSIDE RECORDS SUMMARY | 2025-07-07 05:10 | XMS_ITS | Encounter Summary ---
Author Organization [facility] Address [address] [place] [address] Care Team Providers Care Encephalographer Name Role Phone Rico Muñiz MD, Sharan Jaime Primary Care Provider Encounter Details Date Type Department Care Team (Latest Contact Info) Description 07/18/1999 Outpatient Historical [facility] Sharan Gómez Jr., MD [address] [place] [address] Skin sensation disturb (Primary Dx); Headache(784.0); [facility] (current) use of anticoagulants Social History Tobacco Use Types Packs/Day Years Used Date Smoking Tobacco: Never Assessed Comments Unknown Sex and Gender Information Value Date Recorded Sex Assigned at Not on file Legal Sex Female 5:42 AM NEUROSURGICAL PHYSICIAN ASSISTANT Gender Identity Not on file Sexual Orientation Not on file documented as of this encounter Plan of Treatment Not on file documented as of this encounter Visit Diagnoses Diagnosis Skin sensation disturb- Primary Disturbance of skin sensation Headache(784.0) Headache [facility] (current) use of anticoagulants Long-term (current) use of anticoagulants documented in this encounter Care Teams Encephalographer Relationship Specialty Start Date End Date Sharan Gómez Jr., MD [address] [place] [address] PCP - General 08/10/05 documented as of this encounter
--- OUTSIDE RECORDS SUMMARY | 2025-07-07 05:10 | XMS_ITS | Encounter Summary ---
Author Organization [facility] Address [address] [facility] Attn: [place] [address] Care Team Providers Care Intelligence Group Supervisor Name Role Phone Rico Muñiz MD, Sharan Jaime Primary Care Provider Encounter Details Date Type Department Care Team (Late st Contact Info) Description 01/04/2001 Outpatient Historical Sharan Gómez Jr., MD [address] [place] [address] Social History Tobacco Use Types Packs/Day Years Used Date Smoking Tobacco: Never Assessed Comments Unknown Sex and Gender Information Value Date Recorded Sex Assigned at Not on file Legal Sex Female 5:42 AM KNOWLEDGE ARCHITECT Gender Identity Not on file Sexual Orientation Not on file documented as of this encounter Plan of Treatment Not on file documented as of this encounter Visit Diagnoses Not on filedocumented in this encounter Care Teams Intelligence Group Supervisor Relationship Specialty Start Date End Date Sharan Gómez Jr., MD [address] [place] [address] PCP - General 08/10/05 documented as of this encounter
--- OUTSIDE RECORDS SUMMARY | 2025-07-07 05:10 | XMS_ITS | Encounter Summary ---
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 Social History Tobacco Use Types Packs/Day Years Used Date Smoking Tobacco: Never Assessed Comments Unknown Sex and Gender Information Value Date Recorded Sex Assigned at Not on file Legal Sex Female 5:42 AM SEX CRIMES DETECTIVE Gender Identity Not on file Sexual Orientation Not on file documented as of this encounter Plan of Treatment Not on file documented as of this encounter Visit Diagnoses Diagnosis Acute upper respiratory infections of unspecified site- Primary skilled nursing (current) use of anticoagulants Long-term (current) use of anticoagulants documented in this encounter Care Teams Unemployment Claims Adjudicator Relationship Specialty Start Date End Date Sharan Gómez Jr., MD [address] [place] [address] PCP - General 08/10/05 documented as of this encounter
--- OUTSIDE RECORDS SUMMARY | 2025-07-07 05:10 | XMS_ITS | Encounter Summary ---
Author Organization [facility] Address [address] [place] [address] Care Team Providers Care Shipyard Laborer Name Role Phone Rico Muñiz MD, Sharan Jaime Primary Care Provider Encounter Details Date Type Department Care Team (Latest Contact Info) Description 08/16/2000 Outpatient Historical [facility] Sharan Gómez Jr., MD [address] [place] [address] Pure hypercholesterolem (Primary Dx); Unspecified essential hypertension; Encounter for long-term (current) use of other medications Social History Tobacco Use Types Packs/Day Years Used Date Smoking Tobacco: Never Assessed Comments Unknown Sex and Gender Information Value Date Recorded Sex Assigned at Not on file Legal Sex Female 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 INTEGRATION ENGINEER Gender Identity Not on file Sexual Orientation Not on file documented as of this encounter Plan of Treatment Not on file documented as of this encounter Visit Diagnoses Diagnosis Pure hypercholesterolem- Primary Pure hypercholesterolemia Unspecified essential hypertension Encounter for long-term (current) use of other medications documented in this encounter Care Teams Shipyard Laborer Relationship Specialty Start Date End Date Sharan Gómez Jr., MD [address] [place] [address] PCP - General 08/10/05 documented as of this encounter
--- OUTSIDE RECORDS SUMMARY | 2025-07-07 05:10 | XMS_ITS | Encounter Summary ---
Author Organization [facility] Address [address] [facility] Attn: [place] [address] Care Team Providers Care Armhole Baster Jumpbasting Name Role Phone Rico Muñiz MD, Sharan Jaime Primary Care Provider Encounter Details Date Type Department Care Team (Late st Contact Info) Description 05/24/2000 Outpatient Historical Sharan Gómez Jr., MD [address] [place] [address] Social History Tobacco Use Types Packs/Day Years Used Date Smoking Tobacco: Never Assessed Comments Unknown Sex and Gender Information Value Date Recorded Sex Assigned at Not on file Legal Sex Female 5:42 AM MECHANICAL DESIGN ENGINEER PRODUCTS Gender Identity Not on file Sexual Orientation Not on file documented as of this encounter Plan of Treatment Not on file documented as of this encounter Visit Diagnoses Not on filedocumented in this encounter Care Teams Armhole Baster Jumpbasting Relationship Specialty Start Date End Date Sharan Gómez Jr., MD [address] [place] [address] PCP - General 08/10/05 documented as of this encounter
--- OUTSIDE RECORDS SUMMARY | 2025-07-07 05:10 | XMS_ITS | Encounter Summary ---
Author Organization [facility] Address [address] [facility] Attn: [place] [address] Care Team Providers Care Nut Steamer Name Role Phone Rico Muñiz MD, Sharan Jaime Primary Care Provider Encounter Details Date Type Department Care Team (Late st Contact Info) Description 12/26/1999 Outpatient Historical Sharan Gómez Jr., MD [address] [place] [address] Social History Tobacco Use Types Packs/Day Years Used Date Smoking Tobacco: Never Assessed Comments Unknown Sex and Gender Information Value Date Recorded Sex Assigned at Not on file Legal Sex Female 5:42 AM 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
--- OUTSIDE RECORDS SUMMARY | 2025-07-07 05:10 | XMS_ITS | Encounter Summary ---
Author Organization [facility] Address [address] [place] [address] Care Team Providers Care Manifold Operator Name Role Phone Rico Muñiz MD, Sharan Jaime Primary Care Provider Encounter Details Date Type Department Care Team (Latest Contact Info) Description 09/12/2000 Outpatient Historical [facility] Sharan Gómez Jr., MD [address] [place] [address] Other and unspecified hyperlipidemia (Primary Dx); Other nonspecific finding on examination of urine; Personal history of other disorder of urinary system; watermaster (current) use of anticoagulants Social History Tobacco Use Types Packs/Day Years Used Date Smoking Tobacco: Never Assessed Comments Unknown Sex and Gender Information Value Date Recorded Sex Assigned at Not on file Legal Sex Female 5:42 AM TURF SALES PERSON Gender Identity Not on file Sexual Orientation Not on file documented as of this encounter Plan of Treatment Not on file documented as of this encounter Visit Diagnoses Diagnosis Other and unspecified hyperlipidemia- Primary Other nonspecific finding on examination of urine Personal history of other disorder of urinary system watermaster (current) use of anticoagulants Long-term (current) use of anticoagulants documented in this encounter Care Teams Manifold Operator Relationship Specialty Start Date End Date Sharan Gómez Jr., MD [address] [place] [address] PCP - General 08/10/05 documented as of this encounter
--- OUTSIDE RECORDS SUMMARY | 2025-07-07 05:10 | XMS_ITS | Encounter Summary ---
Author Organization [facility] Address [address] [place] [address] Care Team Providers Care Police Inspector Name Role Phone Rico Muñiz MD, Sharan Jaime Primary Care Provider Encounter Details Date Type Department Care Team (Latest Contact Info) Description 02/15/2001 Outpatient Historical [facility] Sharan Gómez Jr., MD [address] [place] [address] Unspecified essential hypertension (Primary Dx); Heart valve replaced by other means Social History Tobacco Use Types Packs/Day Years Used Date Smoking Tobacco: Never Assessed Comments Unknown Sex and Gender Information Value Date Recorded Sex Assigned at Not on file Legal Sex Female 5:42 AM MERCHANDISE PRESENTATION ASSOCIATE Gender Identity Not on file Sexual Orientation Not on file documented as of this encounter Plan of Treatment Not on file documented as of this encounter Visit Diagnoses Diagnosis Unspecified essential hypertension- Primary Heart valve replaced by other means documented in this encounter Care Teams Police Inspector Relationship Specialty Start Date End Date Sharan Gómez Jr., MD [address] [place] [address] PCP - General 08/10/05 documented as of this encounter
--- OUTSIDE RECORDS SUMMARY | 2025-07-07 05:10 | XMS_ITS | Encounter Summary ---
Author Organization [facility] Address [address] [facility] Attn: [place] [address] Care Team Providers Care Post Form Remover Name Role Phone Rico Muñiz MD, Shraan Jaime Primary Care Provider Encounter Details Date Type Department Care Team (Late st Contact Info) Description 02/15/2001 Outpatient Historical Sharan Gómez Jr., MD [address] [place] [address] Social History Tobacco Use Types Packs/Day Years Used Date Smoking Tobacco: Never Assessed Comments Unknown Sex and Gender Information Value Date Recorded Sex Assigned at Not on file Legal Sex Female 5:42 AM BOILER WASHER Gender Identity Not on file Sexual Orientation Not on file documented as of this encounter Plan of Treatment Not on file documented as of this encounter Visit Diagnoses Not on filedocumented in this encounter Care Teams Post Form Remover Relationship Specialty Start Date End Date Sharan Gómez Jr., MD [address] [place] [address] PCP - General 08/10/05 documented as of this encounter
--- OUTSIDE RECORDS SUMMARY | 2025-07-07 05:10 | XMS_ITS | Encounter Summary ---
Author Organization [facility] Address [address] [place] [address] Care Team Providers Care Potato Bucker Name Role Phone Rico Muñiz MD, Sharan Jaime Primary Care Provider Encounter Details Date Type Department Care Team (Late st Contact Info) Description 10/18/2020 Lab Requisition [facility] [address] [place] [address] Tabatha Lynn, [facility] [address] [place] [address] Social History Tobacco Use Types Packs/Day Years Used Date Smoking Tobacco: Never Assessed Comments Unknown Sex and Gender Information Value Date Recorded Sex Assigned at Not on file Legal Sex Female 5:42 AM MEDICAL REGISTRAR Gender Identity Not on file Sexual Orientation Not on file documented as of this encounter Plan of Treatment Not on file documented as of this encounter Procedures Procedure Name Priority Date/Time Associated Diagnosis Comments PROTIME-INR Routine 10/18/2020 6:34 AM MEDICAL REGISTRAR documented in this encounter Results * (ABNORMAL) PROTIME-INR (10/18/2020 6:34 AM MEDICAL REGISTRAR) PROTIME 34.1(H) 11.9 - 15.5 Seconds 10/18/2020 5:19 PM MEDICAL REGISTRAR [facility] INR 3.2(H) 0.8 - 1.2 10/18/2020 5:19 PM MEDICAL REGISTRAR [facility] Blood Collection / Unknown 10/18/2020 6:34 AM MEDICAL REGISTRAR 10/18/2020 4:57 PM MEDICAL REGISTRAR Narrative [facility] - 10/18/2020 5:19 PM MEDICAL REGISTRAR Expected Values for INR: DVT/PE Goal INR 2.5; range 2.0 - 3.0 Valve Replacement Tissue Goal INR 2.5; range 2.0 - 3.0 Valve Replacement Mechanical Goal INR 3.0; range 2.5 - 3.5 POST-WA Goal INR 2.5; range 2.0 - 3.0 or Goal INR 3.0; range 2.5 - 3.5 Atrial Fibrillation Goal INR 2.5; range 2.0 - 3.0 Ischemic Stroke Goal INR 2.5; range 2.0 - 3.0 For additional information see Guidelines for Anticoagulation available from the pharmacy Aspen Mitchell, Pharm D. Tabatha Neff BUSINESS PROCESS SPECIALIST HEMATOLOGY ORDERABLES Final Result [facility] [address] [place] [address] documented in this encounter Visit Diagnoses Not on filedocumented in this encounter Care Teams Potato Bucker Relationship Specialty Start Date End Date Sharan Gómez Jr., MD [address] [place] [address] PCP - General 08/10/05 documented as of this encounter
--- OUTSIDE RECORDS SUMMARY | 2025-07-07 05:10 | XMS_ITS | Encounter Summary ---
Author Organization [facility] Address [address] [place] [address] Care Team Providers Care Welder Tool And Die Name Role Phone Rico Muñiz MD, Sharan Jaime Primary Care Provider Encounter Details Date Type Department Care Team (Latest Contact Info) Description 06/20/1999 Outpatient Historical [facility] [place] [address] [place] [address] Serge Arrington MD [address] [place] [address] Cough (Primary Dx) Social History Tobacco Use Types Packs/Day Years Used Date Smoking Tobacco: Never Assessed Comments Unknown Sex and Gender Information Value Date Recorded Sex Assigned at Not on file Legal Sex Female 5:42 AM ASSIGNMENT OFFICER Gender Identity Not on file Sexual Orientation Not on file documented as of this encounter Plan of Treatment Not on file documented as of this encounter Visit Diagnoses Diagnosis Cough- Primary documented in this encounter Care Teams Welder Tool And Die Relationship Specialty Start Date End Date Sharan Gómez Jr., MD [address] [place] [address] PCP - General 08/10/05 documented as of this encounter
--- OUTSIDE RECORDS SUMMARY | 2025-07-07 05:10 | XMS_ITS | Encounter Summary ---
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) use of anticoagulants Social History Tobacco Use Types Packs/Day Years Used Date Smoking Tobacco: Never Assessed Comments Unknown Sex and Gender Information Value Date Recorded Sex Assigned at Not on file Legal Sex Female 5:42 AM FIRST LINE SUPERVISOR Gender Identity Not on file Sexual Orientation Not on file documented as of this encounter Plan of Treatment Not on file documented as of this encounter Visit Diagnoses Diagnosis Unspecified essential hypertension- Primary Pure hypercholesterolem Pure hypercholesterolemia Endocarditis, valve unspecified, unspecified cause kiln door repairer (current) use of anticoagulants Long-term (current) use of anticoagulants documented in this encounter Care Teams Analysis Evaluator Relationship Specialty Start Date End Date Sharan Gómez Jr., MD [address] [place] [phone] PCP - General 08/10/05 documented as of this encounter
--- OUTSIDE RECORDS SUMMARY | 2025-07-07 05:10 | XMS_ITS | Encounter Summary ---
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) use of anticoagulants Social History Tobacco Use Types Packs/Day Years Used Date Smoking Tobacco: Never Assessed Comments Unknown Sex and Gender Information Value Date Recorded Sex Assigned at Not on file Legal Sex Female 5:42 AM DISTRICT RESOURCE OFFICER Gender Identity Not on file Sexual Orientation Not on file documented as of this encounter Plan of Treatment Not on file documented as of this encounter Visit Diagnoses Diagnosis Epistaxis- Primary FPC (current) use of anticoagulants Long-term (current) use of anticoagulants documented in this encounter Care Teams Senior Web Applications Developer Relationship Specialty Start Date End Date Sharan Gómez Jr., MD [address] [place] [address] PCP - General 08/10/05 documented as of this encounter
--- OUTSIDE RECORDS SUMMARY | 2025-07-07 05:10 | XMS_ITS | Encounter Summary ---
Author Organization [facility] Address [address] [place] [address] Care Team Providers Care Field Hockey Coach Name Role Phone Rico Muñiz MD, Sharan Jaime Primary Care Provider Encounter Details Date Type Department Care Team (Latest Contact Info) Description 10/10/1999 Outpatient Historical [facility] Sharan Gómez Jr., MD [address] [place] [address] Unspecified circulatory system disorder (Primary Dx); Unspecified essential hypertension; half-way (current) use of anticoagulants Social History Tobacco Use Types Packs/Day Years Used Date Smoking Tobacco: Never Assessed Comments Unknown Sex and Gender Information Value Date Recorded Sex Assigned at Not on file Legal Sex Female 5:42 AM [place] SEAMER Gender Identity Not on file Sexual Orientation Not on file documented as of this encounter Plan of Treatment Not on file documented as of this encounter Visit Diagnoses Diagnosis Unspecified circulatory system disorder- Primary Unspecified essential hypertension 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
--- OUTSIDE RECORDS SUMMARY | 2025-07-07 05:10 | XMS_ITS | Encounter Summary ---
Author Organization [facility] Address [address] [place] [address] Care Team Providers Care Energy Consultant Name Role Phone Rico Muñiz MD, Sharan Jaime Primary Care Provider Encounter Details Date Type Department Care Team (Latest Contact Info) Description 04/12/2001 Outpatient Historical [facility] Sharan Gómez Jr., MD [address] [place] [address] Osteoarthrosis, unspecified whether generalized or localized, unspecified site (Primary Dx); Heart valve replaced by other means; exterminator helper termite (current) use of anticoagulants Social History Tobacco Use Types Packs/Day Years Used Date Smoking Tobacco: Never Assessed Comments Unknown Sex and Gender Information Value Date Recorded Sex Assigned at Not on file Legal Sex Female 5:42 AM DESULPHURIZER OPERATOR Gender Identity Not on file Sexual Orientation Not on file documented as of this encounter Plan of Treatment Not on file documented as of this encounter Visit Diagnoses Diagnosis Osteoarthrosis, unspecified whether generalized or localized, unspecified site- Primary Heart valve replaced by other means long-term (current) use of anticoagulants Long-term (current) use of anticoagulants documented in this encounter Care Teams Energy Consultant Relationship Specialty Start Date End Date Sharan Gómez Jr., MD [address] [facility] [place] [address] PCP - General 08/10/05 documented as of this encounter
--- OUTSIDE RECORDS SUMMARY | 2025-07-07 05:10 | XMS_ITS | Encounter Summary ---
Author Organization [facility] Address [address] [place] [address] Care Team Providers Care Slot Machine Repairer Name Role Phone Rico Muñiz MD, Sharan Jaime Primary Care Provider Encounter Details Date Type Department Care Team (Latest Contact Info) Description 06/18/1998 Outpatient Historical [facility] Int Luis AFaisal Lopez [place] [place] [address] Serge Arrington MD [address] [place] [address] Mitral valve disorder (Primary Dx); Unspecified essential hypertension; Hematuria; Routine medical exam Social History Tobacco Use Types Packs/Day Years Used Date Smoking Tobacco: Never Assessed Comments Unknown Sex and Gender Information Value Date Recorded Sex Assigned at Not on file Legal Sex Female 5:42 AM DATA STEWARD Gender Identity Not on file Sexual Orientation Not on file documented as of this encounter Plan of Treatment Not on file documented as of this encounter Visit Diagnoses Diagnosis Mitral valve disorder- Primary Mitral valve disorders Unspecified essential hypertension Hematuria Routine medical exam Routine general medical examination at a health care facility documented in this encounter Care Teams Slot Machine Repairer Relationship Specialty Start Date End Date Sharan Gómez Jr., MD [address] [place] [phone] PCP - General 08/10/05 documented as of this encounter
--- OUTSIDE RECORDS SUMMARY | 2025-07-07 05:10 | XMS_ITS | Encounter Summary ---
Author Organization [facility] Address [address] [place] [address] Care Team Providers Care Oracle Bpm Consultant Name Role Phone Rico Muñiz MD, Sharan Jaime Primary Care Provider Encounter Details Date Type Department Care Team (Latest Contact Info) Description 02/29/2000 Outpatient Historical [facility] Sharan Gómez Jr., MD [address] [place] [address] Pure hypercholesterolem (Primary Dx); Heart valve replaced by other means; Osteoporosis, unspecified; assistant terminal manager (current) use of anticoagulants Social History Tobacco Use Types Packs/Day Years Used Date Smoking Tobacco: Never Assessed Comments Unknown Sex and Gender Information Value Date Recorded Sex Assigned at Not on file Legal Sex Female 5:42 AM CO FOUNDER AND CTO Gender Identity Not on file Sexual Orientation Not on file documented as of this encounter Plan of Treatment Not on file documented as of this encounter Visit Diagnoses Diagnosis Pure hypercholesterolem- Primary Pure hypercholesterolemia Heart valve replaced by other means Osteoporosis, unspecified residential (current) use of anticoagulants Long-term (current) use of anticoagulants documented in this encounter Care Teams Oracle Bpm Consultant Relationship Specialty Start Date End Date Sharan Gómez Jr., MD [address] [place] [phone] PCP - General 08/10/05 documented as of this encounter
--- OUTSIDE RECORDS SUMMARY | 2025-07-07 05:10 | XMS_ITS | Encounter Summary ---
Author Organization [facility] Address [address] [place] [address] Care Team Providers Care Director Of Home Health Services Name Role Phone Rico Muñiz MD, Sharan Jaime Primary Care Provider Encounter Details Date Type Department Care Team (Late st Contact Info) Description 07/26/1999 Outpatient Historical [facility] Cardiology- Rebeca [address] [place] [phone] [place] [address] [place] [address] Pain in limb (Primary Dx); Heart valve replaced by other means Social History Tobacco Use Types Packs/Day Years Used Date Smoking Tobacco: Never Assessed Comments Unknown Sex and Gender Information Value Date Recorded Sex Assigned at Not on file Legal Sex Female 5:42 AM INTERMEDIATE PROJECT MANAGER Gender Identity Not on file Sexual Orientation Not on file documented as of this encounter Plan of Treatment Not on file documented as of this encounter Visit Diagnoses Diagnosis Pain in limb- Primary Pain in soft tissues of limb Heart valve replaced by other means documented in this encounter Care Teams Director Of Home Health Services Relationship Specialty Start Date End Date Sharan Gómez Jr., MD [address] [place] [address] PCP - General 08/10/05 documented as of this encounter
--- OUTSIDE RECORDS SUMMARY | 2025-07-07 05:10 | XMS_ITS | Encounter Summary ---
Author Organization [facility] Address [address] [place] [address] Care Team Providers Care Educational Advisor Name Role Phone Rico Muñiz MD, Sharan Jaime Primary Care Provider Encounter Details Date Type Department Care Team (Latest Contact Info) Description 10/01/2000 Outpatient Historical [facility] Sharan Gómez Jr., MD [address] [place] [address] Endocarditis, valve unspecified, unspecified cause (Primary Dx); Other and unspecified hyperlipidemia; Osteoarthrosis, unspecified whether generalized or localized, unspecified site Social History Tobacco Use Types Packs/Day Years Used Date Smoking Tobacco: Never Assessed Comments Unknown Sex and Gender Information Value Date Recorded Sex Assigned at Not on file Legal Sex Female 5:42 AM ASSOCIATE ORACLE RETAIL Gender Identity Not on file Sexual Orientation Not on file documented as of this encounter Plan of Treatment Not on file documented as of this encounter Visit Diagnoses Diagnosis Endocarditis, valve unspecified, unspecified cause- Primary Other and unspecified hyperlipidemia Osteoarthrosis, unspecified whether generalized or localized, unspecified site documented in this encounter Care Teams Educational Advisor Relationship Specialty Start Date End Date Sharan Gómez Jr., MD [address] [place] [phone] PCP - General 08/10/05 documented as of this encounter
--- OUTSIDE RECORDS SUMMARY | 2025-07-07 05:10 | XMS_ITS | Encounter Summary ---
Author Organization [facility] Address [address] [place] [address] Care Team Providers Care Filters Assembler Name Role Phone Rico Muñiz MD, Sharan Jaime Primary Care Provider Encounter Details Date Type Department Care Team (Late st Contact Info) Description 10/25/2020 Lab Requisition [facility] Laboratory Services [address] [place] [address] Paulina Peterson MD [address] [place] [address] Social History Tobacco Use Types Packs/Day Years Used Date Smoking Tobacco: Never Assessed Comments Unknown Sex and Gender Information Value Date Recorded Sex Assigned at Not on file Legal Sex Female 5:42 AM AUTO SELF SERVICE STATION ATTENDANT Gender Identity Not on file Sexual Orientation Not on file documented as of this encounter Plan of Treatment Not on file documented as of this encounter Procedures Procedure Name Priority Date/Time Associated Diagnosis Comments PROTIME-INR Routine 10/25/2020 5:18 AM AUTO SELF SERVICE STATION ATTENDANT documented in this encounter Results * (ABNORMAL) PROTIME-INR (10/25/2020 5:18 AM AUTO SELF SERVICE STATION ATTENDANT) PROTIME 34.3(H) 11.9 - 15.5 Seconds 10/25/2020 7:01 PM AUTO SELF SERVICE STATION ATTENDANT [facility] INR 3.3(H) 0.8 - 1.2 10/25/2020 7:01 PM AUTO SELF SERVICE STATION ATTENDANT [facility] Blood Collection / Unknown 10/25/2020 5:18 AM AUTO SELF SERVICE STATION ATTENDANT 10/25/2020 6:44 PM AUTO SELF SERVICE STATION ATTENDANT Narrative [facility] - 10/25/2020 7:01 PM AUTO SELF SERVICE STATION ATTENDANT Expected Values for INR: DVT/PE Goal INR [...] Peterson MD HEMATOLOGY ORDERABLES Maame smart Result [facility] [address] [place] [address] documented in this encounter Visit Diagnoses Not on filedocumented in this encounter Care Teams Filters Assembler Relationship Specialty Start Date End Date Sharan Gómez Jr., MD [address] [place] [address] PCP - General 08/10/05 documented as of this encounter
--- OUTSIDE RECORDS SUMMARY | 2025-07-07 05:10 | XMS_ITS | Encounter Summary ---
Author Organization [facility] Address [address] [place] [address] Care Team Providers Care Maid Cleaning Cooking Name Role Phone Rico Muñiz MD, Sharan Jaime Primary Care Provider Encounter Details Date Type Department Care Team (Latest Contact Info) Description 06/21/2000 Outpatient Historical [facility] Int Luis AFaisal Lopez [place] [place] [address] Serge Arrington MD [address] [place] [address] Mitral valve disorder (Primary Dx); Unspecified essential hypertension; Unspecified gastritis and gastroduodenitis without mention of hemorrhage Social History Tobacco Use Types Packs/Day Years Used Date Smoking Tobacco: Never Assessed Comments Unknown Sex and Gender Information Value Date Recorded Sex Assigned at Not on file Legal Sex Female 5:42 AM ANIMAL SHELTER SUPERVISOR Gender Identity Not on file Sexual Orientation Not on file documented as of this encounter Plan of Treatment Not on file documented as of this encounter Visit Diagnoses Diagnosis Mitral valve disorder- Primary Mitral valve disorders Unspecified essential hypertension Unspecified gastritis and gastroduodenitis without mention of hemorrhage documented in this encounter Care Teams Maid Cleaning Cooking Relationship Specialty Start Date End Date Sharan Gmóez Jr., MD [address] [place] [address] PCP - General 08/10/05 documented as of this encounter
--- OUTSIDE RECORDS SUMMARY | 2025-07-07 05:10 | XMS_ITS | Encounter Summary ---
Author Organization [facility] Address [address] [place] [address] Care Team Providers Care Contractor General Building Name Role Phone Rico Muñiz MD, Sharan Jaime Primary Care Provider Encounter Details Date Type Department Care Team (Latest Contact Info) Description 06/20/1999 Outpatient Historical [facility] [place] [place] [address] Serge Arrington MD [address] [place] [address] Mitral valve disorder (Primary Dx); Unspecified essential hypertension; Other and unspecified hyperlipidemia; Hematuria Social History Tobacco Use Types Packs/Day Years Used Date Smoking Tobacco: Never Assessed Comments Unknown Sex and Gender Information Value Date Recorded Sex Assigned at Not on file Legal Sex Female 5:42 AM CROWN AND BRIDGE TECHNICIAN Gender Identity Not on file Sexual Orientation Not on file documented as of this encounter Plan of Treatment Not on file documented as of this encounter Visit Diagnoses Diagnosis Mitral valve disorder- Primary Mitral valve disorders Unspecified essential hypertension Other and unspecified hyperlipidemia Hematuria documented in this encounter Care Teams Contractor General Building Relationship Specialty Start Date End Date Sharan Gómez Jr., MD [address] [place] [phone] PCP - General 08/10/05 documented as of this encounter
--- OUTSIDE RECORDS SUMMARY | 2025-07-07 05:10 | XMS_ITS | Encounter Summary ---
Author Organization [facility] Address [address] [place] [address] Care Team Providers Care Mash Filter Press Operator Name Role Phone Rico Muñiz MD, Sharan Jaime Primary Care Provider Encounter Details Date Type Department Care Team (Latest Contact Info) Description 12/21/2000 Outpatient Historical [facility] Sharan Gómez Jr., MD [address] [place] [address] Pure hypercholesterolem (Primary Dx); Other and unspecified hyperlipidemia; Esophageal reflux; intermediate (current) use of anticoagulants Social History Tobacco Use Types Packs/Day Years Used Date Smoking Tobacco: Never Assessed Comments Unknown Sex and Gender Information Value Date Recorded Sex Assigned at Not on file Legal Sex Female 5:42 AM EDUCATION GENERAL MANAGER Gender Identity Not on file Sexual Orientation Not on file documented as of this encounter Plan of Treatment Not on file documented as of this encounter Visit Diagnoses Diagnosis Pure hypercholesterolem- Primary Pure hypercholesterolemia Other and unspecified hyperlipidemia Esophageal reflux intermediate (current) use of anticoagulants Long-term (current) use of anticoagulants documented in this encounter Care Teams Mash Filter Press Operator Relationship Specialty Start Date End Date Sharan Gómez Jr., MD [address] [place] [phone] PCP - General 08/10/05 documented as of this encounter
--- OUTSIDE RECORDS SUMMARY | 2025-07-07 05:10 | XMS_ITS | Encounter Summary ---
Author Organization [facility] Address [address] [place] [address] Care Team Providers Care Irrigator Head Name Role Phone Rico Muñiz MD, Sharan Jaime Primary Care Provider Encounter Details Date Type Department Care Team (Latest Contact Info) Description 08/31/2000 Outpatient Historical [facility] Sharan Gómez Jr., MD [address] [place] [address] Pure hypercholesterolem (Primary Dx); Dietary surveil/counseling services director Social History Tobacco Use Types Packs/Day Years Used Date Smoking Tobacco: Never Assessed Comments Unknown Sex and Gender Information Value Date Recorded Sex Assigned at Not on file Legal Sex Female 5:42 AM CRAFT DEMONSTRATOR Gender Identity Not on file Sexual Orientation Not on file documented as of this encounter Plan of Treatment Not on file documented as of this encounter Visit Diagnoses Diagnosis Pure hypercholesterolem- Primary Pure hypercholesterolemia Dietary surveil/counseling services director Dietary surveillance and counseling documented in this encounter Care Teams Irrigator Head Relationship Specialty Start Date End Date Sharan Gómez Jr., MD [address] [place] [address] PCP - General 08/10/05 documented as of this encounter
--- OUTSIDE RECORDS SUMMARY | 2025-07-07 05:10 | XMS_ITS | Encounter Summary ---
Author Organization [facility] Address [address] [place] [address] Care Team Providers Care Psychology Teacher Name Role Phone Rico Muñiz MD, Sharan Jaime Primary Care Provider Encounter Details Date Type Department Care Team (Latest Contact Info) Description 04/06/2000 Outpatient Historical [facility] Sharan Gómez Jr., MD [address] [place] [address] Symptomatic menopausal or female climacteric states (Primary Dx); Endocarditis, valve unspecified, unspecified cause; half-way (current) use of anticoagulants Social History Tobacco Use Types Packs/Day Years Used Date Smoking Tobacco: Never Assessed Comments Unknown Sex and Gender Information Value Date Recorded Sex Assigned at Not on file Legal Sex Female 5:42 AM COCKTAIL WAITRESS Gender Identity Not on file Sexual Orientation Not on file documented as of this encounter Plan of Treatment Not on file documented as of this encounter Visit Diagnoses Diagnosis Symptomatic menopausal or female climacteric states- Primary Endocarditis, valve unspecified, unspecified cause half-way (current) use of anticoagulants Long-term (current) use of anticoagulants documented in this encounter Care Teams Psychology Teacher Relationship Specialty Start Date End Date Sharan Gómez Jr., MD [address] [place] [phone] PCP - General 08/10/05 documented as of this encounter
--- OUTSIDE RECORDS SUMMARY | 2025-07-07 05:10 | XMS_ITS | Encounter Summary ---
Author Organization [facility] Address [address] [place] [address] Care Team Providers Care Engineering Executive Name Role Phone Rico Muñiz MD, Sharan Jaime Primary Care Provider Encounter Details Date Type Department Care Team (Late st Contact Info) Description 2020 Lab Requisition [facility] Laboratory Services [address] [place] [phone] Tabatha Lynn, [facility] [address] [place] [address] Social History Tobacco Use Types Packs/Day Years Used Date Smoking Tobacco: Never Assessed Comments Unknown Sex and Gender Information Value Date Recorded Sex Assigned at Not on file Legal Sex Female 5:42 AM TASTE TESTER Gender Identity Not on file Sexual Orientation Not on file documented as of this encounter Plan of Treatment Not on file documented as of this encounter Procedures Procedure Name Priority Date/Time Associated Diagnosis Comments PROTIME-INR Routine 2020 6:14 AM TASTE TESTER documented in this encounter Results * (ABNORMAL) PROTIME-INR (2020 6:14 AM TASTE TESTER) PROTIME 23.0(H) 11.9 - 15.5 Seconds 2020 7:28 PM TASTE TESTER [facility] INR 2.0(H) 0.8 - 1.2 2020 7:28 PM TASTE TESTER [facility] Blood Collection / Unknown 2020 6:14 AM TASTE TESTER 2020 7:05 PM TASTE TESTER Narrative [facility] - 2020 7:28 PM TASTE TESTER Expected Values for INR: DVT/PE Goal INR 2.5; range 2.0 - 3.0 Valve Replacement Tissue Goal INR 2.5; range 2.0 - 3.0 Valve Replacement Mechanical Goal INR 3.0; range 2.5 - 3.5 POST-MO Goal INR 2.5; range 2.0 - 3.0 or Goal INR 3.0; range 2.5 - 3.5 Atrial Fibrillation Goal INR 2.5; range 2.0 - 3.0 Ischemic Stroke Goal INR 2.5; range 2.0 - 3.0 For additional information see Guidelines for Anticoagulation available from the pharmacy Aspen Mitchell, Pharm D. Tabatha Neff LAW OFFICE ASSISTANT HEMATOLOGY ORDERABLES Final Result Performing Organization Address City/State/[facility] Co de Phone Number [facility] [address] [place] [address] documented in this encounter Visit Diagnoses Not on filedocumented in this encounter Care Teams Engineering Executive Relationship Specialty Start Date End Date Sharan Gómez Jr., MD [address] [place] [address] PCP - General 08/10/05 documented as of this encounter
--- OUTSIDE RECORDS SUMMARY | 2025-07-07 05:10 | XMS_ITS | Encounter Summary ---
Author Organization [facility] Address [address] [place] [address] Care Team Providers Care Nut Chopper Name Role Phone Rico Muñiz MD, Sharan Jaime Primary Care Provider Encounter Details Date Type Department Care Team (Latest Contact Info) Description 04/01/1999 Outpatient Historical [facility] Sharan Gómez Jr., MD [address] [place] [address] Type II or unspecified type diabetes mellitus without mention of complication, not stated as uncontrolled (Primary Dx); Dietary surveil/substance abuse counselor Social History Tobacco Use Types Packs/Day Years Used Date Smoking Tobacco: Never Assessed Comments Unknown Sex and Gender Information Value Date Recorded Sex Assigned at Not on file Legal Sex Female 5:42 AM PHONE BANKER Gender Identity Not on file Sexual Orientation Not on file documented as of this encounter Plan of Treatment Not on file documented as of this encounter Visit Diagnoses Diagnosis Type II or unspecified type diabetes mellitus without mention of complication, not stated as uncontrolled- Primary Dietary surveil/substance abuse counselor Dietary surveillance and counseling documented in this encounter Care Teams Nut Chopper Relationship Specialty Start Date End Date Sharan Gómez Jr., MD [address] [place] [phone] PCP - General 08/10/05 documented as of this encounter
--- OUTSIDE RECORDS SUMMARY | 2025-07-07 05:10 | XMS_ITS | Encounter Summary ---
Author Organization [facility] Address [address] [place] [address] Care Team Providers Care Inbound Ingredient Logistics Specialist Name Role Phone Rico Muñiz MD, Sharan Jaime Primary Care Provider Encounter Details Date Type Department Care Team (Latest Contact Info) Description 06/20/1999 Outpatient Historical [facility] Echocardiography - [facility] [address] [place] [address] X358 Serge Arrington MD [address] [address] Painful respiration (Primary Dx); Precordial pain; Other dyspnea and respiratory abnormality Social History Tobacco Use Types Packs/Day Years Used Date Smoking Tobacco: Never Assessed Comments Unknown Sex and Gender Information Value Date Recorded Sex Assigned at Not on file Legal Sex Female 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 TECH Gender Identity Not on file Sexual Orientation Not on file documented as of this encounter Plan of Treatment Not on file documented as of this encounter Visit Diagnoses Diagnosis Painful respiration- Primary Precordial pain Other dyspnea and respiratory abnormality documented in this encounter Care Teams Inbound Ingredient Logistics Specialist Relationship Specialty Start Date End Date Sharan Gómez Jr., MD [address] [place] [address] PCP - General 08/10/05 documented as of this encounter
--- OUTSIDE RECORDS SUMMARY | 2025-07-07 05:10 | XMS_ITS | Encounter Summary ---
Author Organization [facility] Address [address] [place] [address] Care Team Providers Care Sexual Health Physician Name Role Phone Rico Muñiz MD, Sharan Jaime Primary Care Provider Encounter Details Date Type Department Care Team (Latest Contact Info) Description 03/18/1999 Outpatient Historical [facility] Sharan Gómez Jr., MD [address] [place] [address] Endocarditis, valve unspecified, unspecified cause (Primary Dx); intermission coordinator (current) use of anticoagulants Social History Tobacco Use Types Packs/Day Years Used Date Smoking Tobacco: Never Assessed Comments Unknown Sex and Gender Information Value Date Recorded Sex Assigned at Not on file Legal Sex Female 5:42 AM HORSE RIDER Gender Identity Not on file Sexual Orientation Not on file documented as of this encounter Plan of Treatment Not on file documented as of this encounter Visit Diagnoses Diagnosis Endocarditis, valve unspecified, unspecified cause- Primary FPC (current) use of anticoagulants Long-term (current) use of anticoagulants documented in this encounter Care Teams Sexual Health Physician Relationship Specialty Start Date End Date Sharan Gómez Jr., MD [address] [place] [address] PCP - General 08/10/05 documented as of this encounter
--- OUTSIDE RECORDS SUMMARY | 2025-07-07 05:10 | XMS_ITS | Encounter Summary ---
Author Organization [facility] Address [address] [place] [address] Care Team Providers Care Inspector Welded Parts Name Role Phone Rico Muñiz MD, Sharan Jaime Primary Care Provider Encounter Details Date Type Department Care Team (Latest Contact Info) Description 08/10/2005 Outpatient Historical [facility] Endoscopy [place] [address] [place] [address] Bill Negron MD [address] [place] [address] INT HEMORRHOID W/O COMPL (Primary Dx) Social History Tobacco Use Types Packs/Day Years Used Date Smoking Tobacco: Never Assessed Comments Unknown Sex and Gender Information Value Date Recorded Sex Assigned at Not on file Legal Sex Female 5:42 AM MARKETING FINANCE MANAGER Gender Identity Not on file Sexual [...] Primary documented in this encounter Care Teams Inspector Welded Parts Relationship Specialty Start Date End Date Sharan Gómez Jr., MD [address] [place] [address] PCP - General 08/10/05 documented as of this encounter
--- OUTSIDE RECORDS SUMMARY | 2025-07-07 05:10 | XMS_ITS | Encounter Summary ---
Author Organization [facility] Address [address] [place] [address] Care Team Providers Care Trucking Supervisor Name Role Phone Rico Muñiz MD, Sharan Jaime Primary Care Provider Encounter Details Date Type Department Care Team (Latest Contact Info) Description 01/25/2000 Outpatient Historical [facility] Sharan Gómez Jr., MD [address] [place] [address] Obesity, unspecified (Primary Dx); Heart valve replaced by other means; Unspecified essential hypertension; rodent exterminator (current) use of anticoagulants Social History Tobacco Use Types Packs/Day Years Used Date Smoking Tobacco: Never Assessed Comments Unknown Sex and Gender Information Value Date Recorded Sex Assigned at Not on file Legal Sex Female 5:42 AM SURGICAL SERVICES COORDINATOR Gender Identity Not on file Sexual Orientation Not on file documented as of this encounter Plan of Treatment Not on file documented as of this encounter Visit Diagnoses Diagnosis Obesity, unspecified- Primary Heart valve replaced by other means Unspecified essential hypertension intermediate (current) use of anticoagulants Long-term (current) use of anticoagulants documented in this encounter Care Teams Trucking Supervisor Relationship Specialty Start Date End Date Sharan Gómez Jr., MD [address] [place] [phone] PCP - General 08/10/05 documented as of this encounter
--- OUTSIDE RECORDS SUMMARY | 2025-07-07 05:10 | XMS_ITS | Encounter Summary ---
Author Organization [facility] Address [address] [place] [address] Care Team Providers Care Tool And Die Maker Name Role Phone Rico Muñiz MD, Sharan Jaime Primary Care Provider Encounter Details Date Type Department Care Team (Latest Contact Info) Description 08/10/2005 Outpatient Historical [facility]- [place] [address] [facility] [address] [place] [address] Bill Negron MD [address] [place] [address] ABN FIND-STOOL CONTENTS-OCC BLOOD (Primary Dx); INT HEMORRHOID W/O COMPL; ANAL FISSURE Social History Tobacco Use Types Packs/Day Years Used Date Smoking Tobacco: Never Assessed Comments Unknown Sex and Gender Information Value Date Recorded Sex Assigned at Not on file 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 OUTSIDE STEAM DISTRIBUTION Gender Identity Not on file Sexual Orientation Not on file documented as of this encounter Plan of Treatment Not on file documented as of this encounter Visit Diagnoses Diagnosis Nonspecific abnormal finding in stool contents- Primary Internal hemorrhoids without mention of complication Anal fissure documented in this encounter Care Teams Tool And Die Maker Relationship Specialty Start Date End Date Sharan Gómez Jr., MD [address] [place] [phone] PCP - General 08/10/05 documented as of this encounter
--- OUTSIDE RECORDS SUMMARY | 2025-07-07 05:10 | XMS_ITS | Encounter Summary ---
Author Organization [facility] Address [address] [place] [address] Care Team Providers Care Boiler Tender Name Role Phone Rico Muñiz MD, Sharan Jaime Primary Care Provider Encounter Details Date Type Department Care Team (Late st Contact Info) Description 10/16/2020 Lab Requisition [facility] General Laboratory Services [place] [address] [place] [phone] Mtnv, External Provider [address] [facility] [address] [place] [address] Social History Tobacco Use Types Packs/Day Years Used Date Smoking Tobacco: Never Assessed Comments Unknown Sex and Gender Information Value Date Recorded Sex Assigned at Not on file Legal Sex Female 5:42 AM LOSS PREVENTION GUARD Gender Identity Not on file Sexual Orientation Not on file documented as of this encounter Plan of Treatment Not on file documented as of this encounter Procedures Procedure Name Priority Date/Time Associated Diagnosis Comments PROTIME-INR Routine 10/16/2020 10:20 AM LOSS PREVENTION GUARD documented in this encounter Results * (ABNORMAL) PROTIME-INR (10/16/2020 10:20 AM LOSS PREVENTION GUARD) PROTIME 42.0(H) 12.0 - 14.4 Seconds 10/16/2020 12:[address] [facility] INR 4.7(H) 0.8 - 1.2 10/16/2020 12:05 [address] [facility] Blood 10/16/2020 10:2 0 AM LOSS PREVENTION GUARD 10/16/2020 11:47 AM LOSS PREVENTION GUARD us External Provider Mtnv HEMATOLOGY ORDERABLES Fin al Result [facility] CLIA # [id number] [address] [place] [address] documented in this encounter Visit Diagnoses Not on filedocumented in this encounter Care Teams Boiler Tender Relationship Specialty Start Date End Date Sharan Gómez Jr., MD [address] [place] [address] PCP - General 08/10/05 documented as of this encounter
--- OUTSIDE RECORDS SUMMARY | 2025-07-07 05:10 | XMS_ITS | Encounter Summary ---
Author Organization [facility] Address [address] [facility] Attn: [place] [address] Care Team Providers Care Master Control Engineer Name Role Phone Rico Muñiz MD, Sharan Jaime Primary Care Provider Encounter Details Date Type Department Care Team (Late st Contact Info) Description 08/16/2000 Outpatient Historical Sharan Gómez Jr., MD [address] [place] [address] Social History Tobacco Use Types Packs/Day Years Used Date Smoking Tobacco: Never Assessed Comments Unknown Sex and Gender Information Value Date Recorded Sex Assigned at Not on file Legal Sex Female 5:42 AM REPORT DEVELOPER Gender Identity Not on file Sexual Orientation Not on file documented as of this encounter Plan of Treatment Not on file documented as of this encounter Visit Diagnoses Not on filedocumented in this encounter Care Teams Master Control Engineer Relationship Specialty Start Date End Date Sharan Gómez Jr., MD [address] [place] [address] PCP - General 08/10/05 documented as of this encounter
--- OUTSIDE RECORDS SUMMARY | 2025-07-07 05:10 | XMS_ITS | Encounter Summary ---
Author Organization [facility] Address [address] [place] [address] Care Team Providers Care Glass Sander Name Role Phone Rico Muñiz MD, Sharan Jaime Primary Care Provider Encounter Details Date Type Department Care Team (Latest Contact Info) Description 08/03/2000 Outpatient Historical [facility] Sharan Gómez Jr., MD [address] [place] [address] Pure hypercholesterolem (Primary Dx); Other and unspecified hyperlipidemia; Dietary surveil/alcohol and drug counselor Social History Tobacco Use Types Packs/Day Years Used Date Smoking Tobacco: Never Assessed Comments Unknown Sex and Gender Information Value Date Recorded Sex Assigned at Not on file Legal Sex Female 5:42 AM SPOT CHECKER Gender Identity Not on file Sexual Orientation Not on file documented as of this encounter Plan of Treatment Not on file documented as of this encounter Visit Diagnoses Diagnosis Pure hypercholesterolem- Primary Pure hypercholesterolemia Other and unspecified hyperlipidemia Dietary surveil/alcohol and drug counselor Dietary surveillance and counseling documented in this encounter Care Teams Glass Sander Relationship Specialty Start Date End Date Sharan Gómez Jr., MD [address] [place] [address] PCP - General 08/10/05 documented as of this encounter
[2025-07-07 05:12] VITALS: BP 116/67; PULSE 79; RESP 22; O2SAT 94
[2025-07-07 05:15] LABS: INR 2.84 (0.8-1.2); Prothrombin Time 31.40 SECONDS (12.1-14.9)
[2025-07-07 05:20] LABS: Troponin(5th) Baseline 13 ng/L (0-10)
[2025-07-07 05:21] LABS: Alanine Aminotransferase 22 U/L (0-33); Albumin Level 4.3 g/dL (3.5-5.2); Alkaline Phosphatase 82 U/L (35-105); Anion Gap 15.7 (5-19); Aspartate Amino Transferase 23 U/L (0-32); Blood Urea Nitrogen 25 mg/dL (8-23); Calcium 10.2 mg/dL (8.5-10.5); Carbon Dioxide 25 mmol/L (22-29); Chloride 104 mmol/L (98-107); Creatinine Clr Calc Pharmacy 44.4802; Globulin 2.9 g/dL (1.3-4.6); Glucose 89 mg/dL (65-115); Osmolality Calculated 294 mOsm/kg (285-295); Potassium 4.7 mmol/L (3.5-5.1); Sodium 140 mmol/L (136-145); Total Protein 7.2 g/dL (6.6-8.7)
[2025-07-07 05:27] LABS: Glucose Urine UA Negative (Normal); Nitrate Urine Negative (Negative); Specific Gravity, Urine 1.022 (1.005-1.030)
[2025-07-07 05:32] LABS: Add Urine Microscopic? YES
[2025-07-07 05:45] VITALS: BP 101/69; PULSE 80; RESP 18; O2SAT 93
[2025-07-07 06:06] VITALS: BP 113/73; PULSE 78; RESP 23; O2SAT 94
== END 2025-07-07 06:05 | disposition home or self-care (01) ==
PROVIDERS: Emergency Provider Emergency Medicine; PCP Family Medicine
DX: R07.9 Chest pain, unspecified (principal); Z79.01 Long term (current) use of anticoagulants; Z79.82 Long term (current) use of aspirin; E78.5 Hyperlipidemia, unspecified; I13.0 Hypertensive heart and chronic kidney disease with heart failure and stage 1 through stage 4 chronic kidney disease, or unspecified chronic kidney disease; N18.2 Chronic kidney disease, stage 2 (mild); I50.9 Heart failure, unspecified
CPT/HCPCS: 71045; 80053; 81001; 84484; 85025; 85610; 93005; 99285

== ENCOUNTER 2025-07-27 10:12 | Emergency (ER) | payer MEDICARE, MEDICAID, SELFPAY ==
--- OUTSIDE RECORDS SUMMARY | 2025-07-27 10:16 | XMS_ITS | Encounter Summary ---
Author Organization [facility] Address [address] [facility] Attn: [place] [address] Care Team Providers Care Pencil Sorter Name Role Phone Rico Muñiz MD, Sharan Jaime Primary Care Provider Encounter Details Date Type Department Care Team (Late st Contact Info) Description 07/03/2002 Outpatient Historical Екатерина Malone MD [address] [place] [address] Social History Tobacco Use Types Packs/Day Years Used Date Smoking Tobacco: Never Assessed Comments Unknown Sex and Gender Information Value Date Recorded Sex Assigned at Not on file Legal Sex Female 5:42 AM FIRER LOCOMOTIVE Gender Identity Not on file Sexual Orientation Not on file documented as of this encounter Plan of Treatment Not on file documented as of this encounter Visit Diagnoses Not on filedocumented in this encounter Care Teams Pencil Sorter Relationship Specialty Start Date End Date Sharan Gómez Jr., MD [address] [place] [phone] PCP - General 08/10/05 documented as of this encounter
--- OUTSIDE RECORDS SUMMARY | 2025-07-27 10:16 | XMS_ITS | Encounter Summary ---
Author Organization [facility] Address [address] [place] [address] Care Team Providers Care Gun Tester Name Role Phone Rico Muñiz MD, Sharan Jaime Primary Care Provider Encounter Details Date Type Department Care Team (Latest Contact Info) Description 06/24/2002 Outpatient Historical [facility] [place] [place] [address] Serge Arrington MD [address] [place] [address] Mitral valve disorder (Primary Dx); CORONARY ATHEROSCLER UNSPEC VESSEL; HYPERTENSION NOS; HYPERLIPIDEMIA NEC/NOS Social History Tobacco Use Types Packs/Day Years Used Date Smoking Tobacco: Never Assessed Comments Unknown Sex and Gender Information Value Date Recorded Sex Assigned at Not on file Legal Sex Female 5:42 AM OUTREACH ANALYST Gender Identity Not on file Sexual Orientation Not on file documented as of this encounter Plan of Treatment Not on file documented as of this encounter Visit Diagnoses Diagnosis Mitral valve disorder- Primary Mitral valve disorders Coronary atherosclerosis of unspecified type of vessel, [place] or graft Unspecified essential hypertension Other and unspecified hyperlipidemia documented in this encounter Care Teams Gun Tester Relationship Specialty Start Date End Date Sharan Gómez Jr., MD [address] [place] [address] PCP - General 08/10/05 documented as of this encounter
--- OUTSIDE RECORDS SUMMARY | 2025-07-27 10:17 | XMS_ITS | Encounter Summary ---
Author Organization [facility] Address [address] [place] [address] Care Team Providers Care Corn Husker Machine Operator Name Role Phone Rico Muñiz MD, Sharan Jaime Primary Care Provider Encounter Details Date Type Department Care Team (Latest Contact Info) Description 03/09/2003 Outpatient Historical [facility] [address] [place] [address] Екатерина Malone MD [address] [place] [address] ABN BLOOD CHEMISTRY NEC (Primary Dx) Social History Tobacco Use Types Packs/Day Years Used Date Smoking Tobacco: Never Assessed Comments Unknown Sex and Gender Information Value Date Recorded Sex Assigned at Not on file Legal Sex Female 5:42 AM WELL CLEANER Gender Identity Not on file Sexual Orientation Not on file documented as of this encounter Plan of Treatment Not on file documented as of this encounter Visit Diagnoses Diagnosis Other abnormal blood chemistry- Primary documented in this encounter Care Teams Corn Husker Machine Operator Relationship Specialty Start Date End Date Sharan Gómez Jr., MD [address] [place] [address] PCP - General 08/10/05 documented as of this encounter
--- OUTSIDE RECORDS SUMMARY | 2025-07-27 10:17 | XMS_ITS | Encounter Summary ---
Author Organization [facility] Address [address] [place] [address] Care Team Providers Care Chassis Inspector Name Role Phone Rico Muñiz MD, Sharan Jaime Primary Care Provider Encounter Details Date Type Department Care Team (Latest Contact Info) Description 10/31/2001 Outpatient Historical [facility] Sharan Gómez Jr., MD [address] [place] [address] ATRIAL FIBRILLATION (CMS/HCC) (Primary Dx); AFTERCARE CORPORATE AFFAIRS MANAGER ANTICOAG USE; HEART VALVE REPLAC NEC Social History Tobacco Use Types Packs/Day Years Used Date Smoking Tobacco: Never Assessed Comments Unknown Sex and Gender Information Value Date Recorded Sex Assigned at Not on file Legal Sex Female 5:42 AM FOLDER AND NOTCHER Gender Identity Not on file Sexual Orientation Not on file documented as of this encounter Plan of Treatment Not on file documented as of this encounter Visit Diagnoses Diagnosis Atrial fibrillation (CMS/HCC)- Primary Atrial fibrillation termite inspector (current) use of anticoagulants Long-term (current) use of anticoagulants Heart valve replaced by other means documented in this encounter Care Teams Chassis Inspector Relationship Specialty Start Date End Date Sharan Gómez Jr., MD [address] [place] [address] PCP - General 08/10/05 documented as of this encounter
--- OUTSIDE RECORDS SUMMARY | 2025-07-27 10:17 | XMS_ITS | Encounter Summary ---
Author Organization [facility] Address [address] [place] [address] Care Team Providers Care Cover Assembler Name Role Phone Rico Muñiz MD, Sharan Jaime Primary Care Provider Encounter Details Date Type Department Care Team (Latest Contact Info) Description 06/26/2003 Outpatient Historical [facility] Imaging Services-[facility] [place] [address] [place] [address] Serge Arrington MD [address] [place] [address] HYPERTENSION NOS (Primary Dx); Routine medical exam Social History Tobacco Use Types Packs/Day Years Used Date Smoking Tobacco: Never Assessed Comments Unknown Sex and Gender Information Value Date Recorded Sex Assigned at Not on file Legal Sex Female 5:[address] OPERATOR HOT MIX Gender Identity Not on file Sexual Orientation Not on file documented as of this encounter Plan of Treatment Not on file documented as of this encounter Visit Diagnoses Diagnosis Unspecified essential hypertension- Primary Routine medical exam Routine general medical examination at a health care facility documented in this encounter Care Teams Cover Assembler Relationship Specialty Start Date End Date Sharan Gómez Jr., MD [address] [place] [address] PCP - General 08/10/05 documented as of this encounter
--- OUTSIDE RECORDS SUMMARY | 2025-07-27 10:17 | XMS_ITS | Encounter Summary ---
Author Organization [facility] Address [address] [place] [address] Care Team Providers Care Vb Net Developer Name Role Phone Rico Muñiz MD, Sharan Jaime Primary Care Provider Encounter Details Date Type Department Care Team (Latest Contact Info) Description 01/14/1999 Outpatient Historical [facility] Sharan Gómez Jr., MD [address] [place] [address] Spasm of muscle (Primary Dx) Social History Tobacco Use Types Packs/Day Years Used Date Smoking Tobacco: Never Assessed Comments Unknown Sex and Gender Information Value Date Recorded Sex Assigned at Not on file Legal Sex Female 5:42 AM ACADEMIC AFFAIRS DEAN Gender Identity Not on file Sexual Orientation Not on file documented as of this encounter Plan of Treatment Not on file documented as of this encounter Visit Diagnoses Diagnosis Spasm of muscle- Primary documented in this encounter Care Teams Vb Net Developer Relationship Specialty Start Date End Date Sharan Gómez Jr., MD [address] [place] [address] PCP - General 08/10/05 documented as of this encounter
--- OUTSIDE RECORDS SUMMARY | 2025-07-27 10:17 | XMS_ITS | Encounter Summary ---
Author Organization [facility] Address [address] [place] [address] Care Team Providers Care Quality Assurance Engineer Name Role Phone Rico Muñiz MD, Sharan Jaime Primary Care Provider Encounter Details Date Type Department Care Team (Latest Contact Info) Description 04/19/2001 Outpatient Historical [facility] Arun Nichols NO ADDRESS ON FILE Contusion of hand(s) (Primary Dx) Social History Tobacco Use Types Packs/Day Years Used Date Smoking Tobacco: Never Assessed Comments Unknown Sex and Gender Information Value Date Recorded Sex Assigned at Not on file Legal Sex Female 5:42 AM GATE SHEAR OPERATOR Gender Identity Not on file Sexual Orientation Not on file documented as of this encounter Plan of Treatment Not on file documented as of this encounter Visit Diagnoses Diagnosis Contusion of hand(s)- Primary documented in this encounter Care Teams Quality Assurance Engineer Relationship Specialty Start Date End Date Sharan Gómez Jr., MD [address] [place] [address] PCP - General 08/10/05 documented as of this encounter
--- OUTSIDE RECORDS SUMMARY | 2025-07-27 10:17 | XMS_ITS | Encounter Summary ---
Author Organization [facility] Address [address] [place] [address] Care Team Providers Care Education Coordinator Name Role Phone Rico Muñiz MD, Sharan Jaime Primary Care Provider Encounter Details Date Type Department Care Team (Latest Contact Info) Description 08/06/2006 Outpatient Historical [facility] Int Luis [place]ais[place] [place] [address] Serge Arrington MD [address] [place] [address] Mitral Valve Disorder (Primary Dx); Other and Unspecified Hyperlipidemia; Screening for Malignant Neoplasm of the Cervix Social History Tobacco Use Types Packs/Day Years Used Date Smoking Tobacco: Never Assessed Comments Unknown Sex and Gender Information Value Date Recorded Sex Assigned at Not on file Legal Sex Female 5:42 AM BEVERAGE SPECIALIST Gender Identity Not on file Sexual Orientation Not on file documented as of this encounter Plan of Treatment Not on file documented as of this encounter Visit Diagnoses Diagnosis Mitral valve disorder- Primary Mitral valve disorders Other and unspecified hyperlipidemia Screening for malignant neoplasm of the cervix documented in this encounter Care Teams Education Coordinator Relationship Specialty Start Date End Date Sharan Gómez Jr., MD [address] [place] [phone] PCP - General 08/10/05 documented as of this encounter
--- OUTSIDE RECORDS SUMMARY | 2025-07-27 10:17 | XMS_ITS | Encounter Summary ---
Author Organization [facility] Address [address] [place] [address] Care Team Providers Care Cinder Dump Crane Operator Name Role Phone Rico Muñiz MD, Sharan Jaime Primary Care Provider Encounter Details Date Type Department Care Team (Latest Contact Info) Description 11/05/2006 Outpatient Historical [facility] ([facility] Int Luis AFaisal Lopez [place] [place] [address] Serge Arrington MD [address] [place] [address] Mitral Valve Disorder (Primary Dx); Unspecified Essential Hypertension; Other and Unspecified Hyperlipidemia Social History Tobacco Use Types Packs/Day Years Used Date Smoking Tobacco: Never Assessed Comments Unknown Sex and Gender Information Value Date Recorded Sex Assigned at Not on file Legal Sex Female 5:42 AM SENIOR SALES REPRESENTATIVE Gender Identity Not on file Sexual Orientation Not on file documented as of this encounter Plan of Treatment Not on file documented as of this encounter Visit Diagnoses Diagnosis Mitral valve disorder- Primary Mitral valve disorders Unspecified essential hypertension Other and unspecified hyperlipidemia documented in this encounter Care Teams Cinder Dump Crane Operator Relationship Specialty Start Date End Date Sharan Gómez Jr., MD [address] [place] [address] PCP - General 08/10/05 documented as of this encounter
--- OUTSIDE RECORDS SUMMARY | 2025-07-27 10:17 | XMS_ITS | Encounter Summary ---
Author Organization [facility] Address [address] [place] [address] Care Team Providers Care Pick Pulling Machine Operator Name Role Phone Rico Muñiz MD, Sharan Jaime Primary Care Provider Encounter Details Date Type Department Care Team (Latest Contact Info) Description 02/16/1999 Outpatient Historical [facility] Sharan Gómez Jr., MD [address] [place] [address] Unspecified essential hypertension (Primary Dx); senior care (current) use of anticoagulants Social History Tobacco Use Types Packs/Day Years Used Date Smoking Tobacco: Never Assessed Comments Unknown Sex and Gender Information Value Date Recorded Sex Assigned at Not on file Legal Sex Female 5:42 AM WOOL BRUSHER Gender Identity Not on file Sexual Orientation Not on file documented as of this encounter Plan of Treatment Not on file documented as of this encounter Visit Diagnoses Diagnosis Unspecified essential hypertension- Primary senior care (current) use of anticoagulants Long-term (current) use of anticoagulants documented in this encounter Care Teams Pick Pulling Machine Operator Relationship Specialty Start Date End Date Sharan Gómez Jr., MD [address] [place] [address] PCP - General 08/10/05 documented as of this encounter
--- OUTSIDE RECORDS SUMMARY | 2025-07-27 10:17 | XMS_ITS | Encounter Summary ---
Author Organization [facility] Address [address] [place] [address] Care Team Providers Care Collections Professional Name Role Phone Rico Muñiz MD, Sharan Jaime Primary Care Provider Encounter Details Date Type Department Care Team (Latest Contact Info) Description 11/04/1998 Outpatient Historical [facility] Sharan Gómez Jr., MD [address] [place] [address] Acute upper respiratory infections of unspecified site (Primary Dx); Screening for other and unspecified respiratory condition; Other dyspnea and respiratory abnormality; penitentiary (current) use of anticoagulants Social History Tobacco Use Types Packs/Day Years Used Date Smoking Tobacco: Never Assessed Comments Unknown Sex and Gender Information Value Date Recorded Sex Assigned at Not on file Legal Sex Female 5:42 AM SPRAY DRIER OPERATOR Gender Identity Not on file Sexual Orientation Not on file documented as of this encounter Plan of Treatment Not on file documented as of this encounter Visit Diagnoses Diagnosis Acute upper respiratory infections of unspecified site- Primary Screening for other and unspecified respiratory condition Other dyspnea and respiratory abnormality intermission coordinator (current) use of anticoagulants Long-term (current) use of anticoagulants documented in this encounter Care Teams Collections Professional Relationship Specialty Start Date End Date Sharan Gómez Jr., MD [address] [place] [address] PCP - General 08/10/05 documented as of this encounter
--- OUTSIDE RECORDS SUMMARY | 2025-07-27 10:17 | XMS_ITS | Encounter Summary ---
Author Organization [facility] Address [address] [facility] Attn: Epic Prelude ADT [place] [address] Care Team Providers Care Strategic Accounts Manager Name Role Phone Rico Muñiz MD, [...] on file Legal Sex Female 5:42 AM PINION AND WHEEL TRUER Gender Identity Not on file Sexual Orientation Not on file documented as of this encounter Plan of Treatment Not on file documented as of this encounter Visit Diagnoses Not on filedocumented in this encounter Care Teams Strategic Accounts Manager Relationship Specialty Start Date End Date Sharan Gómez Jr., MD [address] [place] [address] PCP - General 08/10/05 documented as of this encounter
--- OUTSIDE RECORDS SUMMARY | 2025-07-27 10:17 | XMS_ITS | Encounter Summary ---
Author Organization [facility] Address [address] [place] [address] Care Team Providers Care Floor Installer Name Role Phone Rico Muñiz MD, Sharan Jaime Primary Care Provider Encounter Details Date Type Department Care Team (Latest Contact Info) Description 05/16/2001 Outpatient Historical [facility] Sharan Gómez Jr., MD [address] [place] [address] Unspecified essential hypertension (Primary Dx); correction (current) use of anticoagulants Social History Tobacco Use Types Packs/Day Years Used Date Smoking Tobacco: Never Assessed Comments Unknown Sex and Gender Information Value Date Recorded Sex Assigned at Not on file Legal Sex Female 5:42 AM CLOTH HAULER Gender Identity Not on file Sexual Orientation Not on file documented as of this encounter Plan of Treatment Not on file documented as of this encounter Visit Diagnoses Diagnosis Unspecified essential hypertension- Primary correction (current) use of anticoagulants Long-term (current) use of anticoagulants documented in this encounter Care Teams Floor Installer Relationship Specialty Start Date End Date Sharan Gómez Jr., MD [address] [place] [address] PCP - General 08/10/05 documented as of this encounter
--- OUTSIDE RECORDS SUMMARY | 2025-07-27 10:17 | XMS_ITS | Encounter Summary ---
Author Organization [facility] Address [address] [place] [address] Care Team Providers Care Tube Coverer Name Role Phone Rico Muñiz MD, Sharan Jaime Primary Care Provider Encounter Details Date Type Department Care Team (Latest Contact Info) Description 07/06/2003 Outpatient Historical [facility] 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
--- OUTSIDE RECORDS SUMMARY | 2025-07-27 10:17 | XMS_ITS | Encounter Summary ---
Author Organization [facility] Address [address] [place] [address] Care Team Providers Care Rehabilitation Team Lead Name Role Phone Rico Muñiz MD, Sharan Jaime Primary Care Provider Encounter Details Date Type Department Care Team (Latest Contact Info) Description 07/02/2001 Outpatient Historical [facility] Echocardiography - National [address] [place] [id number] X358 Social History Tobacco Use Types Packs/Day Years Used Date Smoking Tobacco: Never Assessed Comments Unknown Sex and Gender Information Value Date Recorded Sex Assigned at Not on file Legal Sex Female 5:42 AM PUBLIC HOUSING INTERVIEWER Gender Identity Not on file Sexual Orientation Not on file documented as of this encounter Plan of Treatment Not on file documented as of this encounter Visit Diagnoses Not on filedocumented in this encounter Care Teams Rehabilitation Team Lead Relationship Specialty Start Date End Date Sharan Gómez Jr., MD [address] [place] [address] PCP - General 08/10/05 documented as of this encounter
--- OUTSIDE RECORDS SUMMARY | 2025-07-27 10:17 | XMS_ITS | Encounter Summary ---
Author Organization [facility] Address [address] [place] [address] Care Team Providers Care Clarifier Operator Helper Name Role Phone Rico Muñiz MD, Sharan Jaime Primary Care Provider Encounter Details Date Type Department Care Team (Latest Contact Info) Description 04/23/2002 Outpatient Historical [facility] Sharan Gómez Jr., MD [address] [place] [address] Pure hypercholesterolem (Primary Dx); HYPERCALCEMIA Social History Tobacco Use Types Packs/Day Years Used Date Smoking Tobacco: Never Assessed Comments Unknown Sex and Gender Information Value Date Recorded Sex Assigned at Not on file Legal Sex Female 5:42 AM DIRECTOR OF DIGITAL TECHNOLOGY Gender Identity Not on file Sexual Orientation Not on file documented as of this encounter Plan of Treatment Not on file documented as of this encounter Visit Diagnoses Diagnosis Pure hypercholesterolem- Primary Pure hypercholesterolemia Hypercalcemia documented in this encounter Care Teams Clarifier Operator Helper Relationship Specialty Start Date End Date Sharan Gómez Jr., MD [address] [place] [address] PCP - General 08/10/05 documented as of this encounter
--- OUTSIDE RECORDS SUMMARY | 2025-07-27 10:17 | XMS_ITS | Encounter Summary ---
Author Organization [facility] Address [address] [place] [address] Care Team Providers Care Media Developer Name Role Phone Rico Muñiz MD, Sharan Jaime Primary Care Provider Encounter Details Date Type Department Care Team (Latest Contact Info) Description 10/27/1998 Outpatient Historical [facility] Sharan Gómez Jr., MD [address] [place] [address] Unspecified essential hypertension (Primary Dx); Chest pain, unspecified; Pneumonia, organism unspecified(486) Social History Tobacco Use Types Packs/Day Years Used Date Smoking Tobacco: Never Assessed Comments Unknown Sex and Gender Information Value Date Recorded Sex Assigned at Not on file Legal Sex Female 5:42 AM COMMERCIAL HELICOPTER PILOT Gender Identity Not on file Sexual Orientation Not on file documented as of this encounter Plan of Treatment Not on file documented as of this encounter Visit Diagnoses Diagnosis Unspecified essential hypertension- Primary Chest pain, unspecified Pneumonia, organism unspecified(486) Pneumonia, organism unspecified documented in this encounter Care Teams Media Developer Relationship Specialty Start Date End Date Sharan Gómez Jr., MD [address] [place] [address] PCP - General 08/10/05 documented as of this encounter
--- OUTSIDE RECORDS SUMMARY | 2025-07-27 10:17 | XMS_ITS | Encounter Summary ---
Author Organization [facility] Address [address] [place] [address] Care Team Providers Care Cokeman Name Role Phone Rico Muñiz MD, Sharan Jaime Primary Care Provider Encounter Details Date Type Department Care Team (Latest Contact Info) Description 07/15/2002 Outpatient Historical [facility] Rafael Lopez De Borgia [address] [place] [address] Patrick Olsen MD NO ADDRESS ON FILE POSTMENOPAUSAL BLEEDING (Primary Dx); DYSPAREUNIA; SCREENING MAL NEOP-CERVIX Social History Tobacco Use Types Packs/Day Years Used Date Smoking Tobacco: Never Assessed Comments Unknown Sex and Gender Information Value Date Recorded Sex Assigned at Not on file Legal Sex Female 5:42 AM IMMUNOPATHOLOGIST Gender Identity Not on file Sexual Orientation Not on file documented as of this encounter Plan of Treatment Not on file documented as of this encounter Visit Diagnoses Diagnosis Postmenopausal bleeding- Primary Dyspareunia Screening for malignant neoplasm of the cervix documented in this encounter Care Teams Cokeman Relationship Specialty Start Date End Date Sharan Gómez Jr., MD [address] [place] [address] PCP - General 08/10/05 documented as of this encounter
--- OUTSIDE RECORDS SUMMARY | 2025-07-27 10:17 | XMS_ITS | Encounter Summary ---
Author Organization [facility] Address [address] [place] [address] Care Team Providers Care Brain Surgeon Name Role Phone Rico Muñiz MD, Sharan Jaime Primary Care Provider Encounter Details Date Type Department Care Team (Latest Contact Info) Description 11/14/2001 Outpatient Historical [facility] Sharan Gómez Jr., MD [address] [place] [address] OSTEOARTHROS NOS-UNSPEC (Primary Dx); HEART VALVE REPLAC NEC Social History Tobacco Use Types Packs/Day Years Used Date Smoking Tobacco: Never Assessed Comments Unknown Sex and Gender Information Value Date Recorded Sex Assigned at Not on file Legal Sex Female 5:42 AM DRY KILN OPERATOR Gender Identity Not on file Sexual Orientation Not on file documented as of this encounter Plan of Treatment Not on file documented as of this encounter Visit Diagnoses Diagnosis Osteoarthrosis, unspecified whether generalized or localized, unspecified site- Primary Heart valve replaced by other means documented in this encounter Care Teams Brain Surgeon Relationship Specialty Start Date End Date Sharan Gómez Jr., MD [address] [place] [address] PCP - General 08/10/05 documented as of this encounter
--- OUTSIDE RECORDS SUMMARY | 2025-07-27 10:17 | XMS_ITS | Encounter Summary ---
Author Organization [facility] Address [address] [facility] Attn: [place] [address] Care Team Providers Care Structural Fitter Name Role Phone Rico Muñiz MD, Sharan Jaime Primary Care Provider Encounter Details Date Type Department Care Team (Late st Contact Info) Description 05/16/2001 Outpatient Historical Sharan Gómez Jr., MD [address] [place] [address] Social History Tobacco Use Types Packs/Day Years Used Date Smoking Tobacco: Never Assessed Comments Unknown Sex and Gender Information Value Date Recorded Sex Assigned at Not on file Legal Sex Female 5:42 AM AEROBICS TEACHER Gender Identity Not on file Sexual Orientation Not on file documented as of this encounter Plan of Treatment Not on file documented as of this encounter Visit Diagnoses Not on filedocumented in this encounter Care Teams Structural Fitter Relationship Specialty Start Date End Date Sharan Gómez Jr., MD [address] [place] [address] PCP - General 08/10/05 documented as of this encounter
--- OUTSIDE RECORDS SUMMARY | 2025-07-27 10:17 | XMS_ITS | Encounter Summary ---
Author Organization [facility] Address [address] [place] [address] Care Team Providers Care Director Supply Chain Name Role Phone Rico Muñiz MD, Sharan Jaime Primary Care Provider Encounter Details Date Type Department Care Team (Latest Contact Info) Description 06/26/2003 Outpatient Historical [facility] Int [facility] John [place] [place] [address] Srege Arrington MD [address] [place] [address] Mitral valve disorder (Primary Dx); HYPERTENSION NOS; HYPERLIPIDEMIA NEC/NOS; VACCINE FOR STREP PNEUMONIAE Social History Tobacco Use Types Packs/Day Years Used Date Smoking Tobacco: Never Assessed Comments Unknown Sex and Gender Information Value Date Recorded Sex Assigned at Not on file Legal Sex Female 5:42 AM FORENSIC PATHOLOGIST Gender Identity Not on file Sexual Orientation [...] (pneumococcus) documented in this encounter Care Teams Director Supply Chain Relationship Specialty Start Date End Date Sharan Gómez Jr., MD [address] [place] [address] PCP - General 08/10/05 documented as of this encounter
--- OUTSIDE RECORDS SUMMARY | 2025-07-27 10:17 | XMS_ITS | Encounter Summary ---
Author Organization [facility] Address [address] [facility] Attn: [place] [address] Care Team Providers Care High School Math Teacher Name Role Phone Rico Muñiz MD, Sharan Jaime Primary Care Provider Encounter Details Date Type Department Care Team (Late st Contact Info) Description 07/23/2002 Outpatient Historical Екатерина Malone MD [address] [place] [address] Social History Tobacco Use Types Packs/Day Years Used Date Smoking Tobacco: Never Assessed Comments Unknown Sex and Gender Information Value Date Recorded Sex Assigned at Not on file Legal Sex Female 5:42 AM CHLORINATION OPERATOR Gender Identity Not on file Sexual Orientation Not on file documented as of this encounter Plan of Treatment Not on file documented as of this encounter Visit Diagnoses Not on filedocumented in this encounter Care Teams High School Math Teacher Relationship Specialty Start Date End Date Sharan Gómez Jr., MD [address] [place] [address] PCP - General 08/10/05 documented as of this encounter
--- OUTSIDE RECORDS SUMMARY | 2025-07-27 10:17 | XMS_ITS | Encounter Summary ---
Author Organization [facility] Address [address] [place] [address] Care Team Providers Care Machine Load Clerk Name Role Phone Rico Muñiz MD, Sharan Jaime Primary Care Provider Encounter Details Date Type Department Care Team (Latest Contact Info) Description 06/28/2001 Outpatient Historical [facility] Sharan Gómez Jr., MD [address] [place] [address] Esophageal reflux (Primary Dx); Heart valve replaced by other means Social History Tobacco Use Types Packs/Day Years Used Date Smoking Tobacco: Never Assessed Comments Unknown Sex and Gender Information Value Date Recorded Sex Assigned at Not on file Legal Sex Female 5:42 AM MIXED LIVESTOCK FARMER Gender Identity Not on file Sexual Orientation Not on file documented as of this encounter Plan of Treatment Not on file documented as of this encounter Visit Diagnoses Diagnosis Esophageal reflux- Primary Heart valve replaced by other means documented in this encounter Care Teams Machine Load Clerk Relationship Specialty Start Date End Date Sharan Gómez Jr., MD [address] [place] [address] PCP - General 08/10/05 documented as of this encounter
--- OUTSIDE RECORDS SUMMARY | 2025-07-27 10:17 | XMS_ITS | Encounter Summary ---
Author Organization [facility] Address [address] [place] [address] Care Team Providers Care Patient Companion Name Role Phone Rico Muñiz MD, Sharan Jaime Primary Care Provider Encounter Details Date Type Department Care Team (Latest Contact Info) Description 08/06/2006 Outpatient Historical [facility] Int Luis AFaisal Lopez [place] [place] [address] Serge Arrington MD [address] [place] [address] Routine Gynecological Examination (Primary Dx) Social History Tobacco Use Types Packs/Day Years Used Date Smoking Tobacco: Never Assessed Comments Unknown Sex and Gender Information Value Date Recorded Sex Assigned at Not on file Legal Sex Female 5:42 AM MEDICAL 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 Gender Identity Not on file Sexual Orientation Not on file documented as of this encounter Plan of Treatment Not on file documented as of this encounter Visit Diagnoses Diagnosis Routine gynecological examination- Primary documented in this encounter Care Teams Patient Companion Relationship Specialty Start Date End Date Sharan Gómez Jr., MD [address] [place] [address] PCP - General 08/10/05 documented as of this encounter
--- OUTSIDE RECORDS SUMMARY | 2025-07-27 10:17 | XMS_ITS | Encounter Summary ---
Author Organization [facility] Address [address] [place] [address] Care Team Providers Care General Pediatrician Name Role Phone Rico Muñiz MD, Sharan Jaime Primary Care Provider Encounter Details Date Type Department Care Team (Latest Contact Info) Description 09/05/2001 Outpatient Historical [facility] Sharan Gómez Jr., MD [address] [place] [address] OSTEOARTHROS NOS-UNSPEC (Primary Dx); OSTEOPOROSIS NOS Social History Tobacco Use Types Packs/Day Years Used Date Smoking Tobacco: Never Assessed Comments Unknown Sex and Gender Information Value Date Recorded Sex Assigned at Not on file Legal Sex Female 5:42 AM LEAD MACHINIST Gender Identity Not on file Sexual Orientation Not on file documented as of this encounter Plan of Treatment Not on file documented as of this encounter Visit Diagnoses Diagnosis Osteoarthrosis, unspecified whether generalized or localized, unspecified site- Primary Osteoporosis, unspecified documented in this encounter Care Teams General Pediatrician Relationship Specialty Start Date End Date Sharan Gómez Jr., MD [address] [place] [address] PCP - General 08/10/05 documented as of this encounter
--- OUTSIDE RECORDS SUMMARY | 2025-07-27 10:17 | XMS_ITS | Encounter Summary ---
Author Organization [facility] Address [address] [place] [address] Care Team Providers Care Ruby On Rails Developer Name Role Phone Rico Muñiz MD, Sharan Jaime Primary Care Provider Encounter Details Date Type Department Care Team (Latest Contact Info) Description 06/24/2001 Outpatient Historical [facility] Int Luis AFaisal Lopez [place] [place] [address] Serge Arrington MD [address] [place] [address] Mitral valve disorder (Primary Dx); Unspecified essential hypertension; Other and unspecified hyperlipidemia; Dizziness and giddiness Social History Tobacco Use Types Packs/Day Years Used Date Smoking Tobacco: Never Assessed Comments Unknown Sex and Gender Information Value Date Recorded Sex Assigned at Not on file Legal Sex Female 5:42 AM CHILD CARE DIRECTOR Gender Identity Not on file Sexual Orientation Not on file documented as of this encounter Plan of Treatment Not on file documented as of this encounter Visit Diagnoses Diagnosis Mitral valve disorder- Primary Mitral valve disorders Unspecified essential hypertension Other and unspecified hyperlipidemia Dizziness and giddiness documented in this encounter Care Teams Ruby On Rails Developer Relationship Specialty Start Date End Date Sharan Gómez Jr., MD [address] [place] [address] PCP - General 08/10/05 documented as of this encounter
--- OUTSIDE RECORDS SUMMARY | 2025-07-27 10:17 | XMS_ITS | Encounter Summary ---
Author Organization [facility] Address [address] [place] [address] Care Team Providers Care Certified Low Vision Therapist Name Role Phone Rico Muñiz MD, Sharan Jaime Primary Care Provider Encounter Details Date Type Department Care Team (Latest Contact Info) Description 07/04/2005 Outpatient Historical [facility] Imaging Services-Faisal Lopez [place] [address] [place] [address] Serge Arrington MD [address] [place] [address] HYPERTENSION NOS (Primary Dx) Social History Tobacco Use Types Packs/Day Years Used Date Smoking Tobacco: Never Assessed Comments Unknown Sex and Gender Information Value Date Recorded Sex Assigned at Not on file Legal Sex Female 5:42 AM PUBLIC HEALTH REGISTRAR Gender Identity Not on file Sexual Orientation Not on file documented as of this encounter Plan of Treatment Not on file documented as of this encounter Visit Diagnoses Diagnosis Unspecified essential hypertension- Primary documented in this encounter Care Teams Certified Low Vision Therapist Relationship Specialty Start Date End Date Sharan Gómez Jr., MD [address] [facility] [place] [address] PCP - General 08/10/05 documented as of this encounter
--- OUTSIDE RECORDS SUMMARY | 2025-07-27 10:17 | XMS_ITS | Encounter Summary ---
Author Organization [facility] Address [address] [place] [address] Care Team Providers Care Supervisor Engine Assembly Name Role Phone Rico Muñiz MD, Sharan Jaime Primary Care Provider Encounter Details Date Type Department Care Team (Latest Contact Info) Description 02/25/1999 Outpatient Historical [facility] Sharan Gómez Jr., MD [address] [place] [address] Dietary surveil/adolescent counselor (Primary Dx) Social History Tobacco Use Types Packs/Day Years Used Date Smoking Tobacco: Never Assessed Comments Unknown Sex and Gender Information Value Date Recorded Sex Assigned at Not on file Legal Sex Female 5:42 AM BORDER PATROL OFFICER Gender Identity Not on file Sexual Orientation Not on file documented as of this encounter Plan of Treatment Not on file documented as of this encounter Visit Diagnoses Diagnosis Dietary surveil/adolescent counselor- Primary Dietary surveillance and counseling documented in this encounter Care Teams Supervisor Engine Assembly Relationship Specialty Start Date End Date Sharan Gómez Jr., MD [address] [place] [address] PCP - General 08/10/05 documented as of this encounter
--- OUTSIDE RECORDS SUMMARY | 2025-07-27 10:17 | XMS_ITS | Encounter Summary ---
Author Organization [facility] Address [address] [place] [address] Care Team Providers Care Crt Name Role Phone Rico Muñiz MD, Sharan Jaime Primary Care Provider Encounter Details Date Type Department Care Team (Latest Contact Info) Description 08/05/2001 Outpatient Historical [facility] Sharan Gómez Jr., MD [address] [place] [address] Generalized anxiety disorder (Primary Dx); Hypopotassemia Social History Tobacco Use Types Packs/Day Years Used Date Smoking Tobacco: Never Assessed Comments Unknown Sex and Gender Information Value Date Recorded Sex Assigned at Not on file Legal Sex Female 5:42 AM ACTIVITIES THERAPIST Gender Identity Not on file Sexual Orientation Not on file documented as of this encounter Plan of Treatment Not on file documented as of this encounter Visit Diagnoses Diagnosis Generalized anxiety disorder- Primary Hypopotassemia documented in this encounter Care Teams Crt Relationship Specialty Start Date End Date Sharan Gómez Jr., MD [address] [place] [address] PCP - General 08/10/05 documented as of this encounter
--- OUTSIDE RECORDS SUMMARY | 2025-07-27 10:17 | XMS_ITS | Encounter Summary ---
Author Organization [facility] Address [address] [place] [address] Care Team Providers Care Residential Assistant Name Role Phone Rico Muñiz MD, Sharan Jaime Primary Care Provider Encounter Details Date Type Department Care Team (Latest Contact Info) Description 06/29/2004 Outpatient Historical [facility] Int Luis AFaisal Lopez [place] [place] [address] Segre Arrington MD [address] [place] [address] Mitral valve disorder (Primary Dx); HYPERTENSION NOS; HYPERLIPIDEMIA NEC/NOS; OSTEOPOROSIS NOS Social History Tobacco Use Types Packs/Day Years Used Date Smoking Tobacco: Never Assessed Comments Unknown Sex and Gender Information Value Date Recorded Sex Assigned at Not on file Legal Sex Female 5:42 AM YOGA INSTRUCTOR Gender Identity Not on file Sexual Orientation Not on file documented as of this encounter Plan of Treatment Not on file documented as of this encounter Visit Diagnoses Diagnosis Mitral valve disorder- Primary Mitral valve disorders Unspecified essential hypertension Other and unspecified hyperlipidemia Osteoporosis, unspecified documented in this encounter Care Teams Residential Assistant Relationship Specialty Start Date End Date Sharan Gómez Jr., MD [address] [place] [phone] PCP - General 08/10/05 documented as of this encounter
--- OUTSIDE RECORDS SUMMARY | 2025-07-27 10:17 | XMS_ITS | Encounter Summary ---
Author Organization [facility] Address [address] [place] [address] Care Team Providers Care Sales Support Administrator Name Role Phone Rico Muñiz MD, Sharan Jaime Primary Care Provider Encounter Details Date Type Department Care Team (Latest Contact Info) Description 12/13/1998 Outpatient Historical [facility] Sharan Gómez Jr., MD [address] [place] [address] Acute upper respiratory infections of unspecified site (Primary Dx); [facility] (current) use of anticoagulants Social History Tobacco Use Types Packs/Day Years Used Date Smoking Tobacco: Never Assessed Comments Unknown Sex and Gender Information Value Date Recorded Sex Assigned at Not on file Legal Sex Female 5: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
--- OUTSIDE RECORDS SUMMARY | 2025-07-27 10:17 | XMS_ITS | Encounter Summary ---
Author Organization [facility] Address [address] [place] [address] Care Team Providers Care Screw Machine Operator Name Role Phone Rico Muñiz MD, Sharan Jaime Primary Care Provider Encounter Details Date Type Department Care Team (Late st Contact Info) Description 10/14/2020 Lab Requisition [facility] Laboratory Services [address] [place] [address] Paulina Peterson MD [address] [place] [address] Social History Tobacco Use Types Packs/Day Years Used Date Smoking Tobacco: Never Assessed Comments Unknown Sex and Gender Information Value Date Recorded Sex Assigned at Not on file Legal Sex Female 5:42 AM REFERRAL COORDINATOR Gender Identity Not on file Sexual Orientation Not on file documented as of this encounter Plan of Treatment Not on file documented as of this encounter Procedures Procedure Name Priority Date/Time Associated Diagnosis Comments PROTIME-INR Routine 10/14/2020 6:16 AM REFERRAL COORDINATOR documented in this encounter Results * (ABNORMAL) PROTIME-INR (10/14/2020 6:16 AM REFERRAL COORDINATOR) PROTIME 43.3(H) 11.9 - 15.5 Seconds 10/14/2020 4:10 PM REFERRAL COORDINATOR [facility] INR 4.4(H) 0.8 - 1.2 10/14/2020 4:10 PM REFERRAL COORDINATOR [facility] Blood Collection / Unknown 10/14/2020 6:16 AM REFERRAL COORDINATOR 10/14/2020 3:45 PM REFERRAL COORDINATOR Narrative [facility] - 10/14/2020 4:10 PM REFERRAL COORDINATOR Expected Values for INR: DVT/PE Goal INR [...] Peterson MD HEMATOLOGY ORDERABLES Maame smart Result [facility] [address] [place] [address] documented in this encounter Visit Diagnoses Not on filedocumented in this encounter Care Teams Screw Machine Operator Relationship Specialty Start Date End Date Sharan Gómez Jr., MD [address] [place] [address] PCP - General 08/10/05 documented as of this encounter
--- OUTSIDE RECORDS SUMMARY | 2025-07-27 10:17 | XMS_ITS | Encounter Summary ---
Author Organization [facility] Address [address] [place] [address] Care Team Providers Care Museum Librarian Name Role Phone Rico Muñiz MD, Sharan Jaime Primary Care Provider Encounter Details Date Type Department Care Team (Late st Contact Info) Description 07/02/2001 Outpatient Historical [facility] Serge Arrington MD [address] [facility] [address] [place] [address] Encounter for long-term (current) use of other medications (Primary Dx); Unspecified essential hypertension Social History Tobacco Use Types Packs/Day Years Used Date Smoking Tobacco: Never Assessed Comments Unknown Sex and Gender Information Value Date Recorded Sex Assigned at Not on file Legal Sex Female 5:42 AM EXTERMINATOR Gender Identity Not on file Sexual Orientation Not on file documented as of this encounter Plan of Treatment Not on file documented as of this encounter Visit Diagnoses Diagnosis Encounter for long-term (current) use of other medications- Primary Unspecified essential hypertension documented in this encounter Care Teams Museum Librarian Relationship Specialty Start Date End Date Sharan Gómez Jr., MD [address] [place] [address] PCP - General 08/10/05 documented as of this encounter
--- OUTSIDE RECORDS SUMMARY | 2025-07-27 10:17 | XMS_ITS | Encounter Summary ---
Author Organization [facility] Address [address] [place] [address] Care Team Providers Care Prosthetics Lab Technician Name Role Phone Rico Muñiz MD, Sharan Jaime Primary Care Provider Encounter Details Date Type Department Care Team (Latest Contact Info) Description 07/06/2006 Outpatient Historical [facility] [address] [place] [address] Jennifer Cash MD NO ADDRESS ON FILE Unspecified Essential Hypertension (Primary Dx); Other and Unspecified Hyperlipidemia; Hypercalcemia; Routine Medical Exam Social History Tobacco Use Types Packs/Day Years Used Date Smoking Tobacco: Never Assessed Comments Unknown Sex and Gender Information Value Date Recorded Sex Assigned at Not on file Legal Sex Female 5:42 AM MICROBIOLOGICAL ANALYST Gender Identity Not on file Sexual Orientation Not on file documented as of this encounter Plan of Treatment Not on file documented as of this encounter Visit Diagnoses Diagnosis Unspecified essential hypertension- Primary Other and unspecified hyperlipidemia Hypercalcemia Routine medical exam Routine general medical examination at a health care facility documented in this encounter Care Teams Prosthetics Lab Technician Relationship Specialty Start Date End Date Sharan Gómez Jr., MD [address] [place] [address] PCP - General 08/10/05 documented as of this encounter
--- OUTSIDE RECORDS SUMMARY | 2025-07-27 10:17 | XMS_ITS | Encounter Summary ---
Author Organization [facility] Address [address] [facility] Attn: [place] [address] Care Team Providers Care Motor Assembly Supervisor Name Role Phone Rico Muñiz MD, Sharan Jaime Primary Care Provider Encounter Details Date Type Department Care Team (Late st Contact Info) Description 04/23/2002 Outpatient Historical Sharan Gómez Jr., MD [address] [place] [address] Social History Tobacco Use Types Packs/Day Years Used Date Smoking Tobacco: Never Assessed Comments Unknown Sex and Gender Information Value Date Recorded Sex Assigned at Not on file Legal Sex Female 5:42 AM 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
--- OUTSIDE RECORDS SUMMARY | 2025-07-27 10:17 | XMS_ITS | Encounter Summary ---
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 (current) use of anticoagulants Social History Tobacco Use Types Packs/Day Years Used Date Smoking Tobacco: Never Assessed Comments Unknown Sex and Gender Information Value Date Recorded Sex Assigned at Not on file Legal Sex Female 5:42 AM CHEMICAL OPERATIONS SPECIALIST Gender Identity Not on file Sexual Orientation Not on file documented as of this encounter Plan of Treatment Not on file documented as of this encounter Visit Diagnoses Diagnosis Unspecified essential hypertension- Primary Hypopotassemia half-way (current) use of anticoagulants Long-term (current) use of anticoagulants documented in this encounter Care Teams Parking Garage Manager Relationship Specialty Start Date End Date Sharan Gómez Jr., MD [address] [place] [address] PCP - General 08/10/05 documented as of this encounter
--- OUTSIDE RECORDS SUMMARY | 2025-07-27 10:17 | XMS_ITS | Encounter Summary ---
Author Organization [facility] Address [address] [place] [address] Care Team Providers Care Tc Operator Name Role Phone Rico Muñiz MD, Sharan Jaime Primary Care Provider Encounter Details Date Type Department Care Team (Latest Contact Info) Description 11/28/2001 Outpatient Historical [facility] Sharan Gómez Jr., MD [address] [place] [address] URIN TRACT INFECTION NOS (Primary Dx); AFTERCARE HALFWAY ANTICOAG USE Social History Tobacco Use Types Packs/Day Years Used Date Smoking Tobacco: Never Assessed Comments Unknown Sex and Gender Information Value Date Recorded Sex Assigned at Not on file Legal Sex Female 5:42 AM CHEF BROILER OR FRY Gender Identity Not on file Sexual Orientation Not on file documented as of this encounter Plan of Treatment Not on file documented as of this encounter Visit Diagnoses Diagnosis Urinary tract infection, site not specified- Primary [facility]P (current) use of anticoagulants Long-term (current) use of anticoagulants documented in this encounter Care Teams Tc Operator Relationship Specialty Start Date End Date Sharan Gómez Jr., MD [address] [facility] [place] [address] PCP - General 08/10/05 documented as of this encounter
--- OUTSIDE RECORDS SUMMARY | 2025-07-27 10:17 | XMS_ITS | Encounter Summary ---
Author Organization [facility] Address [address] [place] [address] Care Team Providers Care [place] Administrator Name Role Phone Rico Muñiz MD, Sharan Jaime Primary Care Provider Encounter Details Date Type Department Care Team (Late st Contact Info) Description 06/24/2001 Outpatient Historical [facility] Serge Arrington MD [address] [facility] [address] [place] [address] Unspecified essential hypertension (Primary Dx); Other and unspecified hyperlipidemia Social History Tobacco Use Types Packs/Day Years Used Date Smoking Tobacco: Never Assessed Comments Unknown Sex and Gender Information Value Date Recorded Sex Assigned at Not on file Legal Sex Female 5:42 AM EQUIPMENT MAN Gender Identity Not on file Sexual Orientation Not on file documented as of this encounter Plan of Treatment Not on file documented as of this encounter Visit Diagnoses Diagnosis Unspecified essential hypertension- Primary Other and unspecified hyperlipidemia documented in this encounter Care Teams [place] Administrator Relationship Specialty Start Date End Date Sharan Gómez Jr., MD [address] [place] [address] PCP - General 08/10/05 documented as of this encounter
--- OUTSIDE RECORDS SUMMARY | 2025-07-27 10:17 | XMS_ITS | Encounter Summary ---
Author Organization [facility] Address [address] [place] [address] Care Team Providers Care Director Safety Name Role Phone Rico Muñiz MD, Sharan Jaime Primary Care Provider Encounter Details Date Type Department Care Team (Latest Contact Info) Description 07/04/2005 Outpatient Historical [facility] Int [facility] [place] [place] [address] Serge Arrington MD [address] [place] [address] ROUTINE FOOD BEVERAGE MANAGER EXAMINATION (Primary Dx) Social History Tobacco Use Types Packs/Day Years Used Date Smoking Tobacco: Never Assessed Comments Unknown Sex and Gender Information Value Date Recorded Sex Assigned at Not on file Legal Sex Female 5:42 AM MOTORBOAT MECHANIC INBOARD/OUTBOARD Gender Identity Not on file Sexual Orientation Not on file documented as of this encounter Plan of Treatment Not on file documented as of this encounter Visit Diagnoses Diagnosis Routine gynecological examination- Primary documented in this encounter Care Teams Director Safety Relationship Specialty Start Date End Date Sharan Gómez Jr., MD [address] [place] [address] PCP - General 08/10/05 documented as of this encounter
--- OUTSIDE RECORDS SUMMARY | 2025-07-27 10:17 | XMS_ITS | Encounter Summary ---
Author Organization [facility] Address [address] [place] [address] Care Team Providers Care Sales Representative Education Courses Name Role Phone Rico Muñiz MD, Sharan Jaime Primary Care Provider Encounter Details Date Type Department Care Team (Latest Contact Info) Description 09/15/1998 Outpatient Historical [facility] Sharan Gómez Jr., MD [address] [place] [address] Unspecified essential hypertension (Primary Dx); Esophagitis, unspecified; terminal gauger (current) use of anticoagulants; Need vaccination-viral disease Social History Tobacco Use Types Packs/Day Years Used Date Smoking Tobacco: Never Assessed Comments Unknown Sex and Gender Information Value Date Recorded Sex Assigned at Not on file Legal Sex Female 5:42 AM REGIONAL BUSINESS DEVELOPMENT MANAGER Gender Identity Not on file Sexual Orientation Not on file documented as of this encounter Plan of Treatment Not on file documented as of this encounter Visit Diagnoses Diagnosis Unspecified essential hypertension- Primary Esophagitis, unspecified [facility] (current) use of anticoagulants Long-term (current) use of anticoagulants Need vaccination-viral disease Need for prophylactic vaccination and inoculation against other viral diseases documented in this encounter Care Teams Sales Representative Education Courses Relationship Specialty Start Date End Date Sharan Gómez Jr., MD [address] [place] [address] PCP - General 08/10/05 documented as of this encounter
--- OUTSIDE RECORDS SUMMARY | 2025-07-27 10:17 | XMS_ITS | Encounter Summary ---
Author Organization [facility] Address [address] [facility] Attn: [place] [address] Care Team Providers Care Space Officer Name Role Phone Rico Muñiz MD, Sharan Jaime Primary Care Provider Encounter Details Date Type Department Care Team (Late st Contact Info) Description 08/05/2001 Outpatient Historical Sharan Gómez Jr., MD [address] [place] [address] Social History Tobacco Use Types Packs/Day Years Used Date Smoking Tobacco: Never Assessed Comments Unknown Sex and Gender Information Value Date Recorded Sex Assigned at Not on file Legal Sex Female 5:42 AM GENERAL CONTRACTOR Gender Identity Not on file Sexual Orientation Not on file documented as of this encounter Plan of Treatment Not on file documented as of this encounter Visit Diagnoses Not on filedocumented in this encounter Care Teams Space Officer Relationship Specialty Start Date End Date Sharan Gómez Jr., MD [address] [place] [address] PCP - General 08/10/05 documented as of this encounter
--- OUTSIDE RECORDS SUMMARY | 2025-07-27 10:17 | XMS_ITS | Encounter Summary ---
Author Organization [facility] Address [address] [place] [address] Care Team Providers Care Park Keeper Name Role Phone Rico Muñiz MD, Sharan Jaime Primary Care Provider Encounter Details Date Type Department Care Team (Late st Contact Info) Description 10/15/2020 Lab Requisition [facility] Laboratory Services [address] [place] [address] Paulina Peterson MD [address] [place] [address] Social History Tobacco Use Types Packs/Day Years Used Date Smoking Tobacco: Never Assessed Comments Unknown Sex and Gender Information Value Date Recorded Sex Assigned at Not on file Legal Sex Female 5:42 AM FIXTURE FABRICATOR REPAIRER Gender Identity Not on file Sexual Orientation Not on file documented as of this encounter Plan of Treatment Not on file documented as of this encounter Procedures Procedure Name Priority Date/Time Associated Diagnosis Comments PROTIME-INR Routine 10/15/2020 4:40 AM FIXTURE FABRICATOR REPAIRER documented in this encounter Results * (ABNORMAL) PROTIME-INR (10/15/2020 4:40 AM FIXTURE FABRICATOR REPAIRER) PROTIME 46.6(H) 11.9 - 15.5 Seconds 10/15/2020 4:26 PM FIXTURE FABRICATOR REPAIRER [facility] INR 4.9(H) 0.8 - 1.2 10/15/2020 4:26 PM FIXTURE FABRICATOR REPAIRER [facility] Blood Collection / Unknown 10/15/2020 4:40 AM FIXTURE FABRICATOR REPAIRER 10/15/2020 4:01 PM FIXTURE FABRICATOR REPAIRER Narrative [facility] - 10/15/2020 4:26 PM FIXTURE FABRICATOR REPAIRER Expected Values for INR: DVT/PE Goal INR [...] Peterson MD HEMATOLOGY ORDERABLES Maame smart Result [facility] [address] [place] [address] documented in this encounter Visit Diagnoses Not on filedocumented in this encounter Care Teams Park Keeper Relationship Specialty Start Date End Date Sharan Gómez Jr., MD [address] [place] [address] PCP - General 08/10/05 documented as of this encounter
--- OUTSIDE RECORDS SUMMARY | 2025-07-27 10:17 | XMS_ITS | Encounter Summary ---
Author Organization [facility] Address [address] [place] [address] Care Team Providers Care Gas Plant Operator Name Role Phone Rico Muñiz MD, Sharan Jaime Primary Care Provider Encounter Details Date Type Department Care Team (Latest Contact Info) Description 11/05/2003 Outpatient Historical [facility] [address] [place] [phone] Екатерина Malone MD [address] [place] [address] HYPERLIPIDEMIA NEC/NOS (Primary Dx) Social History Tobacco Use Types Packs/Day Years Used Date Smoking Tobacco: Never Assessed Comments Unknown Sex and Gender Information Value Date Recorded Sex Assigned at Not on file Legal Sex Female 5:42 AM ROOFING TECHNICIAN Gender Identity Not on file Sexual Orientation Not on file documented as of this encounter Plan of Treatment Not on file documented as of this encounter Visit Diagnoses Diagnosis Other and unspecified hyperlipidemia- Primary documented in this encounter Care Teams Gas Plant Operator Relationship Specialty Start Date End Date Sharan Gómez Jr., MD [address] [place] [address] PCP - General 08/10/05 documented as of this encounter
--- OUTSIDE RECORDS SUMMARY | 2025-07-27 10:17 | XMS_ITS | Encounter Summary ---
Author Organization [facility] Address [address] [place] [address] Care Team Providers Care Umbrella Tipper Hand Name Role Phone Rico Muñiz MD, Sharan Jaime Primary Care Provider Encounter Details Date Type Department Care Team (Latest Contact Info) Description 07/04/2005 Outpatient Historical [facility] Int Luis AFaisal Lopez [place] [place] [address] Serge Arrington MD [address] [place] [address] Mitral valve disorder (Primary Dx); HYPERTENSION NOS; ABN FIND-STOOL CONTENTS-OCC BLOOD; SCREENING MAL NEOP-CERVIX Social History Tobacco Use Types Packs/Day Years Used Date Smoking Tobacco: Never Assessed Comments Unknown Sex and Gender Information Value Date Recorded Sex Assigned at Not on file Legal Sex Female 5:42 AM ADMINISTRATIVE SUPPORT ASSISTANT Gender Identity Not on file Sexual Orientation Not on file documented as of this encounter Plan of Treatment Not on file documented as of this encounter Visit Diagnoses Diagnosis Mitral valve disorder- Primary Mitral valve disorders Unspecified essential hypertension Nonspecific abnormal finding in stool contents Screening for malignant neoplasm of the cervix documented in this encounter Care Teams Umbrella Tipper Hand Relationship Specialty Start Date End Date Sharan Gómez Jr., MD [address] [place] [address] PCP - General 08/10/05 documented as of this encounter
--- OUTSIDE RECORDS SUMMARY | 2025-07-27 10:17 | XMS_ITS | Encounter Summary ---
Author Organization [facility] Address [address] [place] [address] Care Team Providers Care Dietitian Therapeutic Name Role Phone Rico Muñiz MD, Sharan Jaime Primary Care Provider Encounter Details Date Type Department Care Team (Latest Contact Info) Description 06/24/2001 Outpatient Historical [facility] Imaging Services-Faisal Lopez [place] [address] [place] [address] Serge Arrington MD [address] [place] [address] Unspecified congenital anomaly of heart (Primary Dx) Social History Tobacco Use Types Packs/Day Years Used Date Smoking Tobacco: Never Assessed Comments Unknown Sex and Gender Information Value Date Recorded Sex Assigned at Not on file Legal Sex Female 5:42 AM DRILLING FIELD SPECIALIST Gender Identity Not on file Sexual Orientation Not on file documented as of this encounter Plan of Treatment Not on file documented as of this encounter Visit Diagnoses Diagnosis Unspecified congenital anomaly of heart- Primary documented in this encounter Care Teams Dietitian Therapeutic Relationship Specialty Start Date End Date Sharan Gómez Jr., MD [address] [place] [address] PCP - General 08/10/05 documented as of this encounter
--- OUTSIDE RECORDS SUMMARY | 2025-07-27 10:17 | XMS_ITS | Encounter Summary ---
Author Organization [facility] Address [address] [place] [address] Care Team Providers Care Auto Club Travel Counselor Name Role Phone Rico Muñiz MD, Sharan Jaime Primary Care Provider Encounter Details Date Type Department Care Team (Latest Contact Info) Description 02/04/2007 Outpatient Historical [facility] Int Luis AFaisal Lopez [place] [place] [address] Serge Arrington MD [address] [place] [address] Unspecified Essential Hypertension (Primary Dx); Mitral Valve Disorder; Other and Unspecified Hyperlipidemia Social History Tobacco Use Types Packs/Day Years Used Date Smoking Tobacco: Never Assessed Comments Unknown Sex and Gender Information Value Date Recorded Sex Assigned at Not on file Legal Sex Female 5:42 AM UTILITY AIRCREWMAN Gender Identity Not on file Sexual Orientation Not on file documented as of this encounter Plan of Treatment Not on file documented as of this encounter Visit Diagnoses Diagnosis Unspecified essential hypertension- Primary Mitral valve disorder Mitral valve disorders Other and unspecified hyperlipidemia documented in this encounter Care Teams Auto Club Travel Counselor Relationship Specialty Start Date End Date Sharan Gómez Jr., MD [address] [place] [address] PCP - General 08/10/05 documented as of this encounter
--- OUTSIDE RECORDS SUMMARY | 2025-07-27 10:18 | XMS_ITS | Encounter Summary ---
Author Organization [facility] Address [address] [place] [address] Care Team Providers Care Head Start Teacher Name Role Phone Rico Muñiz MD, Sharan Jaime Primary Care Provider Encounter Details Date Type Department Care Team (Latest Contact Info) Description 08/03/2000 Outpatient Historical [facility] Sharan Gómez Jr., MD [address] [place] [address] Pure hypercholesterolem (Primary Dx); Other and unspecified hyperlipidemia; Dietary surveil/addictions counselor assistant Social History Tobacco Use Types Packs/Day Years Used Date Smoking Tobacco: Never Assessed Comments Unknown Sex and Gender Information Value Date Recorded Sex Assigned at Not on file Legal Sex Female 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
--- OUTSIDE RECORDS SUMMARY | 2025-07-27 10:18 | XMS_ITS | Encounter Summary ---
Author Organization [facility] Address [address] [place] [address] Care Team Providers Care Outpatient Case Manager Name Role Phone Rico Muñiz MD, Sharan Jaime Primary Care Provider Encounter Details Date Type Department Care Team (Latest Contact Info) Description 05/24/2000 Outpatient Historical [facility] Sharan Gómez Jr., MD [address] [place] [address] Unspecified essential hypertension (Primary Dx); Osteoporosis, unspecified Social History Tobacco Use Types Packs/Day Years Used Date Smoking Tobacco: Never Assessed Comments Unknown Sex and Gender Information Value Date Recorded Sex Assigned at Not on file Legal Sex Female 5:42 AM SIDE STITCHING 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 Gender Identity Not on file Sexual Orientation Not on file documented as of this encounter Plan of Treatment Not on file documented as of this encounter Visit Diagnoses Diagnosis Unspecified essential hypertension- Primary Osteoporosis, unspecified documented in this encounter Care Teams Outpatient Case Manager Relationship Specialty Start Date End Date Sharan Gómez Jr., MD [address] [place] [address] PCP - General 08/10/05 documented as of this encounter
--- OUTSIDE RECORDS SUMMARY | 2025-07-27 10:18 | XMS_ITS | Encounter Summary ---
Author Organization [facility] Address [address] [place] [address] Care Team Providers Care Electric Powerline Examiner Name Role Phone Rico Muñiz MD, Sharan Jaime Primary Care Provider Encounter Details Date Type Department Care Team (Latest Contact Info) Description 06/21/[address] [facility] Int Luis AFaisal Lopez [place] [place] [address] Serge Arrington MD [address] [place] [address] Mitral valve disorder (Primary Dx); Unspecified essential hypertension; Unspecified gastritis and gastroduodenitis without mention of hemorrhage Social History Tobacco Use Types Packs/Day Years Used Date Smoking Tobacco: Never Assessed Comments Unknown Sex and Gender Information Value Date Recorded Sex Assigned at Not on file Legal Sex Female 5:42 AM RETAIL FIELD SUPERVISOR Gender Identity Not on file Sexual Orientation Not on file documented as of this encounter Plan of Treatment Not on file documented as of this encounter Visit Diagnoses Diagnosis Mitral valve disorder- Primary Mitral valve disorders Unspecified essential hypertension Unspecified gastritis and gastroduodenitis without mention of hemorrhage documented in this encounter Care Teams Electric Powerline Examiner Relationship Specialty Start Date End Date Sharan Gómez Jr., MD [address] [place] [address] PCP - General 08/10/05 documented as of this encounter
--- OUTSIDE RECORDS SUMMARY | 2025-07-27 10:18 | XMS_ITS | Encounter Summary ---
Author Organization [facility] Address [address] [place] [address] Care Team Providers Care Director Of Business Development Name Role Phone Rico Muñiz MD, Sharan Jaime Primary Care Provider Encounter Details Date Type Department Care Team (Latest Contact Info) Description 06/28/2000 Outpatient Historical [facility] Sharan Gómez Jr., MD [address] [place] [address] Pure hypercholesterolem (Primary Dx); Hypopotassemia; Heart valve replaced by other means Social History Tobacco Use Types Packs/Day Years Used Date Smoking Tobacco: Never Assessed Comments Unknown Sex and Gender Information Value Date Recorded Sex Assigned at Not on file Legal Sex Female 5:42 AM CRYSTAL EVALUATOR Gender Identity Not on file Sexual Orientation Not on file documented as of this encounter Plan of Treatment Not on file documented as of this encounter Visit Diagnoses Diagnosis Pure hypercholesterolem- Primary Pure hypercholesterolemia Hypopotassemia Heart valve replaced by other means documented in this encounter Care Teams Director Of Business Development Relationship Specialty Start Date End Date Sharan Gómez Jr., MD [address] [place] [address] PCP - General 08/10/05 documented as of this encounter
--- OUTSIDE RECORDS SUMMARY | 2025-07-27 10:18 | XMS_ITS | Encounter Summary ---
Author Organization [facility] Address [address] [place] [address] Care Team Providers Care Anglesmith Helper Name Role Phone Rico Muñiz MD, Sharan Jaime Primary Care Provider Encounter Details Date Type Department Care Team (Late st Contact Info) Description 2020 Lab Requisition [facility] Laboratory Services [address] [place] [phone] Tabatha Lynn, [facility] [address] [place] [address] Social History Tobacco Use Types Packs/Day Years Used Date Smoking Tobacco: Never Assessed Comments Unknown Sex and Gender Information Value Date Recorded Sex Assigned at Not on file Legal Sex Female 5:42 AM HEEL LIFT GOUGER Gender Identity Not on file Sexual Orientation Not on file documented as of this encounter Plan of Treatment Not on file documented as of this encounter Procedures Procedure Name Priority Date/Time Associated Diagnosis Comments PROTIME-INR Routine 2020 6:14 AM HEEL LIFT GOUGER documented in this encounter Results * (ABNORMAL) PROTIME-INR (2020 6:14 AM HEEL LIFT GOUGER) PROTIME 23.0(H) 11.9 - 15.5 Seconds 2020 7:28 PM HEEL LIFT GOUGER [facility] INR 2.0(H) 0.8 - 1.2 2020 7:28 PM HEEL LIFT GOUGER [facility] Blood Collection / Unknown 2020 6:14 AM HEEL LIFT GOUGER 2020 7:05 PM HEEL LIFT GOUGER Narrative [facility] - 2020 7:28 PM HEEL LIFT GOUGER Expected Values for INR: DVT/PE Goal INR [...] pharmacy Aspen Mitchell, Pharm D. Tabatha Neff CONICAL MIXER HEMATOLOGY ORDERABLES Final Result Performing Organization Address City/State/[facility] Co de Phone Number [facility] [address] [place] [address] documented in this encounter Visit Diagnoses Not on filedocumented in this encounter Care Teams Anglesmith Helper Relationship Specialty Start Date End Date Sharan Gómez Jr., MD [address] [place] [address] PCP - General 08/10/05 documented as of this encounter
--- OUTSIDE RECORDS SUMMARY | 2025-07-27 10:18 | XMS_ITS | Encounter Summary ---
Author Organization [facility] Address [address] [place] [address] Care Team Providers Care Software Engineer Intern Name Role Phone Rico Muñiz MD, Sharan Jaime Primary Care Provider Encounter Details Date Type Department Care Team (Latest Contact Info) Description 06/20/1999 Outpatient Historical [facility] Echocardiography - National [address] [place] [address] [address] Serge Arrington MD [address] [address] Painful respiration (Primary Dx); Precordial pain; Other dyspnea and respiratory abnormality Social History Tobacco Use Types Packs/Day Years Used Date Smoking Tobacco: Never Assessed Comments Unknown Sex and Gender Information Value Date Recorded Sex Assigned at Not on file Legal Sex Female 5:42 AM CLINICAL ASSISTANT Gender Identity Not on file Sexual Orientation Not on file documented as of this encounter Plan of Treatment Not on file documented as of this encounter Visit Diagnoses Diagnosis Painful respiration- Primary Precordial pain Other dyspnea and respiratory abnormality documented in this encounter Care Teams Software Engineer Intern Relationship Specialty Start Date End Date Sharan Gómez Jr., MD [address] [place] [address] PCP - General 08/10/05 documented as of this encounter
--- OUTSIDE RECORDS SUMMARY | 2025-07-27 10:18 | XMS_ITS | Encounter Summary ---
Author Organization [facility] Address [address] [place] [address] Care Team Providers Care Antique Clocks Repairer Name Role Phone Rico Muñiz MD, Sharan Jaime Primary Care Provider Encounter Details Date Type Department Care Team (Latest Contact Info) Description 10/26/1999 Outpatient Historical [facility] Sharan Gómez Jr., MD [address] [place] [address] Endocarditis, valve unspecified, unspecified cause (Primary Dx); Osteoporosis, unspecified Social History Tobacco Use Types Packs/Day Years Used Date Smoking Tobacco: Never Assessed Comments Unknown Sex and Gender Information Value Date Recorded Sex Assigned at Not on file Legal Sex Female 5:42 AM 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
--- OUTSIDE RECORDS SUMMARY | 2025-07-27 10:18 | XMS_ITS | Encounter Summary ---
Author Organization [facility] Address [address] Attn: [place] [address] Care Team Providers Care Press Technician Name Role Phone Rico Muñiz MD, Sharan Jaime Primary Care Provider Encounter Details Date Type Department Care Team (Late st Contact Info) Description 12/20/2001 Outpatient Historical Sharan Gómez Jr., MD [address] [place] [address] Social History Tobacco Use Types Packs/Day Years Used Date Smoking Tobacco: Never Assessed Comments Unknown Sex and Gender Information Value Date Recorded Sex Assigned at Not on file Legal Sex Female 5:42 AM HATCHERY MANAGER Gender Identity Not on file Sexual Orientation Not on file documented as of this encounter Plan of Treatment Not on file documented as of this encounter Visit Diagnoses Not on filedocumented in this encounter Care Teams Press Technician Relationship Specialty Start Date End Date Sharan Gómez Jr., MD [address] [place] [address] PCP - General 08/10/05 documented as of this encounter
--- OUTSIDE RECORDS SUMMARY | 2025-07-27 10:18 | XMS_ITS | Encounter Summary ---
Author Organization [facility] Address [address] Attn: [place] [address] Care Team Providers Care Cheesemaker Name Role Phone Rico Muñiz MD, Sharan Jaime Primary Care Provider Encounter Details Date Type Department Care Team (Late st Contact Info) Description 08/16/2000 Outpatient Historical Sharan Gómez Jr., MD [address] [place] [address] Social History Tobacco Use Types Packs/Day Years Used Date Smoking Tobacco: Never Assessed Comments Unknown Sex and Gender Information Value Date Recorded Sex Assigned at Not on file Legal Sex Female 5:42 AM BOOK MENDER Gender Identity Not on file Sexual Orientation Not on file documented as of this encounter Plan of Treatment Not on file documented as of this encounter Visit Diagnoses Not on filedocumented in this encounter Care Teams Cheesemaker Relationship Specialty Start Date End Date Sharan Gómez Jr., MD [address] [place] [address] PCP - General 08/10/05 documented as of this encounter
--- OUTSIDE RECORDS SUMMARY | 2025-07-27 10:18 | XMS_ITS | Encounter Summary ---
Author Organization [facility] Address [address] [place] [address] Care Team Providers Care Tissue Coordinator Name Role Phone Rico Muñiz MD, Sharan Jaime Primary Care Provider Encounter Details Date Type Department Care Team (Latest Contact Info) Description 12/26/1999 Outpatient Historical [facility] Sharan Gómez Jr., MD [address] [place] [address] ASCVD (Primary Dx); Esophageal reflux; Unspecified essential hypertension; watermaster (current) use of anticoagulants Social History Tobacco Use Types Packs/Day Years Used Date Smoking Tobacco: Never Assessed Comments Unknown Sex and Gender Information Value Date Recorded Sex Assigned at Not on file Legal Sex Female 5:42 AM OFFSET PRINTER Gender Identity Not on file Sexual Orientation Not on file documented as of this encounter Plan of Treatment Not on file documented as of this encounter Visit Diagnoses Diagnosis ASCVD- Primary Unspecified cardiovascular disease Esophageal reflux Unspecified essential hypertension retirement (current) use of anticoagulants Long-term (current) use of anticoagulants documented in this encounter Care Teams Tissue Coordinator Relationship Specialty Start Date End Date Sharan Gómez Jr., MD [address] [place] [address] PCP - General 08/10/05 documented as of this encounter
--- OUTSIDE RECORDS SUMMARY | 2025-07-27 10:18 | XMS_ITS | Encounter Summary ---
Author Organization [facility] Address [address] [place] [address] Care Team Providers Care Auto Seat Cover Installer Name Role Phone Rico Muñiz MD, Sharan Jaime Primary Care Provider Encounter Details Date Type Department Care Team (Latest Contact Info) Description 02/29/2000 Outpatient Historical [facility] Sharan Gómez Jr., MD [address] [place] [address] Pure hypercholesterolem (Primary Dx); Heart valve replaced by other means; Osteoporosis, unspecified; prison (current) use of anticoagulants Social History [...] valve replaced by other means Osteoporosis, unspecified prison (current) use of anticoagulants Long-term (current) use of anticoagulants documented in this encounter Care Teams Auto Seat Cover Installer Relationship Specialty Start Date End Date Sharan Gómez Jr., MD [address] [place] [address] PCP - General 08/10/05 documented as of this encounter
--- OUTSIDE RECORDS SUMMARY | 2025-07-27 10:18 | XMS_ITS | Encounter Summary ---
Author Organization [facility] Address [address] [place] [address] Care Team Providers Care Home Aid Name Role Phone Rico Muñiz MD, Sharan Jaime Primary Care Provider Encounter Details Date Type Department Care Team (Latest Contact Info) Description 12/21/2000 Outpatient Historical [facility] Sharan Gómez Jr., MD [address] [place] [address] Pure hypercholesterolem (Primary Dx); Other and unspecified hyperlipidemia; Esophageal reflux; assisted (current) use of anticoagulants Social History Tobacco Use Types Packs/Day Years Used Date Smoking Tobacco: Never Assessed Comments Unknown Sex and Gender Information Value Date Recorded Sex Assigned at Not on file Legal Sex Female 5:42 AM BRAN MIXER Gender Identity Not on file Sexual Orientation Not on file documented as of this encounter Plan of Treatment Not on file documented as of this encounter Visit Diagnoses Diagnosis Pure hypercholesterolem- Primary Pure hypercholesterolemia Other and unspecified hyperlipidemia Esophageal reflux assisted (current) use of anticoagulants Long-term (current) use of anticoagulants documented in this encounter Care Teams Home Aid Relationship Specialty Start Date End Date Sharan Gómez Jr., MD [address] [place] [address] PCP - General 08/10/05 documented as of this encounter
--- OUTSIDE RECORDS SUMMARY | 2025-07-27 10:18 | XMS_ITS | Encounter Summary ---
Author Organization [facility] Address [address] [place] [address] Care Team Providers Care Orthodontist Vice President Name Role Phone Rico Muñiz MD, Sharan Jaime Primary Care Provider Encounter Details Date Type Department Care Team (Latest Contact Info) Description 06/18/1998 Outpatient Historical [facility] Int Luis AFaisal Lopez [place] [place] [address] Serge Arrington MD [address] [place] [address] Mitral valve disorder (Primary Dx); Unspecified essential hypertension; Hematuria; Routine medical exam Social History Tobacco Use Types Packs/Day Years Used Date Smoking Tobacco: Never Assessed Comments Unknown Sex and Gender Information Value Date Recorded Sex Assigned at Not on file Legal Sex Female 5:42 AM INSURANCE BILLER Gender Identity Not on file Sexual Orientation Not on file documented as of this encounter Plan of Treatment Not on file documented as of this encounter Visit Diagnoses Diagnosis Mitral valve disorder- Primary Mitral valve disorders Unspecified essential hypertension Hematuria Routine medical exam Routine general medical examination at a health care facility documented in this encounter Care Teams Orthodontist Vice President Relationship Specialty Start Date End Date Sharan Gómez Jr., MD [address] [place] [address] PCP - General 08/10/05 documented as of this encounter
--- OUTSIDE RECORDS SUMMARY | 2025-07-27 10:18 | XMS_ITS | Encounter Summary ---
Author Organization [facility] Address [address] [place] [address] Care Team Providers Care Marketing Production Coordinator Name Role Phone Rico Muñiz MD, Sharan Jaime Primary Care Provider Encounter Details Date Type Department Care Team (Latest Contact Info) Description 01/25/2000 Outpatient Historical [facility] Sharan Gómez Jr., MD [address] [place] [address] Obesity, unspecified (Primary Dx); Heart valve replaced by other means; Unspecified essential hypertension; hand etcher helper (current) use of anticoagulants Social History Tobacco Use Types Packs/Day Years Used Date Smoking Tobacco: Never Assessed Comments Unknown Sex and Gender Information Value Date Recorded Sex Assigned at Not on file Legal Sex Female 5:42 AM WARRANT CLERK Gender Identity Not on file Sexual Orientation Not on file documented as of this encounter Plan of Treatment Not on file documented as of this encounter Visit Diagnoses Diagnosis Obesity, unspecified- Primary Heart valve replaced by other means Unspecified essential hypertension [facility] (current) use of anticoagulants Long-term (current) use of anticoagulants documented in this encounter Care Teams Marketing Production Coordinator Relationship Specialty Start Date End Date Sharan Gómez Jr., MD [address] [place] [address] PCP - General 08/10/05 documented as of this encounter
--- OUTSIDE RECORDS SUMMARY | 2025-07-27 10:18 | XMS_ITS | Encounter Summary ---
Author Organization [facility] Address [address] [place] [address] Care Team Providers Care Yeast Supervisor Name Role Phone Rico Muñiz MD, Shaarn Jaime Primary Care Provider Encounter Details Date Type Department Care Team (Latest Contact Info) Description 07/06/2006 Outpatient Historical [facility] [place] [address] [place] [address] Jennifer Cash MD NO ADDRESS ON FILE Unspecified Essential Hypertension (Primary Dx); Other Chest Pain Social History Tobacco Use Types Packs/Day Years Used Date Smoking Tobacco: Never Assessed Comments Unknown Sex and Gender Information Value Date Recorded Sex Assigned at Not on file Legal Sex Female 5:42 AM CUSTOMER RETENTION SPECIALIST Gender Identity Not on file Sexual Orientation Not on file documented as of this encounter Plan of Treatment Not on file documented as of this encounter Visit Diagnoses Diagnosis Unspecified essential hypertension- Primary Other chest pain documented in this encounter Care Teams Yeast Supervisor Relationship Specialty Start Date End Date Sharan Gómez Jr., MD [address] [place] [address] PCP - General 08/10/05 documented as of this encounter
--- OUTSIDE RECORDS SUMMARY | 2025-07-27 10:18 | XMS_ITS | Encounter Summary ---
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; Heart valve replaced by other means Social History Tobacco Use Types Packs/Day Years Used Date Smoking Tobacco: Never Assessed Comments Unknown Sex and Gender Information Value Date Recorded Sex Assigned at Not on file Legal Sex Female 5:42 AM COATER SLATE Gender Identity Not on file Sexual Orientation Not on file documented as of this encounter Plan of Treatment Not on file documented as of this encounter Visit Diagnoses Diagnosis Osteoarthrosis, unspecified whether generalized or localized, unspecified site- Primary equipment 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
--- OUTSIDE RECORDS SUMMARY | 2025-07-27 10:18 | XMS_ITS | Encounter Summary ---
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 Social History Tobacco Use Types Packs/Day Years Used Date Smoking Tobacco: Never Assessed Comments Unknown Sex and Gender Information Value Date Recorded Sex Assigned at Not on file Legal Sex Female 5:42 AM FIELD ARTILLERY RADAR OPERATOR Gender Identity Not on file Sexual Orientation Not on file documented as of this encounter Plan of Treatment Not on file documented as of this encounter Visit Diagnoses Diagnosis Skin sensation disturb- Primary Disturbance of skin sensation Headache(784.0) Headache 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
--- OUTSIDE RECORDS SUMMARY | 2025-07-27 10:18 | XMS_ITS | Encounter Summary ---
Author Organization [facility] Address [address] [place] [address] Care Team Providers Care Tutor Coordinator Name Role Phone Rico Muñiz MD, Sharan Jaime Primary Care Provider Encounter Details Date Type Department Care Team (Latest Contact Info) Description 12/20/2001 Outpatient Historical [facility] Sharan Gómez Jr., MD [address] [place] [address] WHEEZING (Primary Dx); HEART VALVE REPLAC NEC; AFTERCARE PRISON ANTICOAG USE Social History Tobacco Use Types Packs/Day Years Used Date Smoking Tobacco: Never Assessed Comments Unknown Sex and Gender Information Value Date Recorded Sex Assigned at Not on file Legal Sex Female 5:42 AM RIVETER Gender Identity Not on file Sexual Orientation Not on file documented as of this encounter Plan of Treatment Not on file documented as of this encounter Visit Diagnoses Diagnosis Wheezing- Primary Heart valve replaced by other means prison (current) use of anticoagulants Long-term (current) use of anticoagulants documented in this encounter Care Teams Tutor Coordinator Relationship Specialty Start Date End Date Sharan Gómez Jr., MD [address] [facility] [place] [address] PCP - General 08/10/05 documented as of this encounter
--- OUTSIDE RECORDS SUMMARY | 2025-07-27 10:18 | XMS_ITS | Encounter Summary ---
Author Organization [facility] Address [address] [place] [address] Care Team Providers Care Feature Writer Name Role Phone Rico Muñiz MD, Sharan Jaime Primary Care Provider Encounter Details Date Type Department Care Team (Latest Contact Info) Description 02/03/2002 Outpatient Historical [facility] Sharan Gómez Jr., MD [address] [place] [address] HEART VALVE REPLAC NEC (Primary Dx); AFTERCARE CUSTODIAL ANTICOAG USE Social History Tobacco Use Types Packs/Day Years Used Date Smoking Tobacco: Never Assessed Comments Unknown Sex and Gender Information Value Date Recorded Sex Assigned at Not on file Legal Sex Female 5:42 AM RESPIRATORY THERAPY DIRECTOR Gender Identity Not on file Sexual Orientation Not on file documented as of this encounter Plan of Treatment Not on file documented as of this encounter Visit Diagnoses Diagnosis Heart valve replaced by other means- Primary shelter (current) use of anticoagulants Long-term (current) use of anticoagulants documented in this encounter Care Teams Feature Writer Relationship Specialty Start Date End Date Sharan Gómez Jr., MD [address] [place] [address] PCP - General 08/10/05 documented as of this encounter
--- OUTSIDE RECORDS SUMMARY | 2025-07-27 10:18 | XMS_ITS | Encounter Summary ---
Author Organization [facility] Address [address] [place] [address] Care Team Providers Care Solar Electric/Photovoltaic Installer Name Role Phone Rico Muñiz MD, Sharan Jaime Primary Care Provider Encounter Details Date Type Department Care Team (Latest Contact Info) Description 10/01/2000 Outpatient Historical [facility] Sharan Gómez Jr., MD [address] [place] [address] Endocarditis, valve unspecified, unspecified cause (Primary Dx); Other and unspecified hyperlipidemia; Osteoarthrosis, unspecified whether generalized or localized, unspecified site Social History Tobacco Use Types Packs/Day Years Used Date Smoking Tobacco: Never Assessed Comments Unknown Sex and Gender Information Value Date Recorded Sex Assigned at Not on file Legal Sex Female 5:42 AM CAR RUNNER Gender Identity Not on file Sexual Orientation Not on file documented as of this encounter Plan of Treatment Not on file documented as of this encounter Visit Diagnoses Diagnosis Endocarditis, valve unspecified, unspecified cause- Primary Other and unspecified hyperlipidemia Osteoarthrosis, unspecified whether generalized or localized, unspecified site documented in this encounter Care Teams Solar Electric/Photovoltaic Installer Relationship Specialty Start Date End Date Sharan Gómez Jr., MD [address] [place] [address] PCP - General 08/10/05 documented as of this encounter
--- OUTSIDE RECORDS SUMMARY | 2025-07-27 10:18 | XMS_ITS | Encounter Summary ---
Author Organization [facility] Address [address] [facility] Attn: [place] [address] Care Team Providers Care Local Company Flatbed Truck Driver Name Role Phone Rico Muñiz MD, Sharan Jaime Primary Care Provider Encounter Details Date Type Department Care Team (Late st Contact Info) Description 06/22/2000 Outpatient Historical Serge Arrington MD [address] [facility] [address] [place] [address] Social History Tobacco Use Types Packs/Day Years Used Date Smoking Tobacco: Never Assessed Comments Unknown Sex and Gender Information Value Date Recorded Sex Assigned at Not on file Legal Sex Female 5:42 AM SUPERVISOR HIDE HOUSE Gender Identity Not on file Sexual Orientation Not on file documented as of this encounter Plan of Treatment Not on file documented as of this encounter Visit Diagnoses Not on filedocumented in this encounter Care Teams Local Company Flatbed Truck Driver Relationship Specialty Start Date End Date Sharan Gómez Jr., MD [address] [place] [address] PCP - General 08/10/05 documented as of this encounter
--- OUTSIDE RECORDS SUMMARY | 2025-07-27 10:18 | XMS_ITS | Encounter Summary ---
Author Organization [facility] Address [address] [place] [address] Care Team Providers Care Buggy Ladle Tender Name Role Phone Rico Muñiz MD, Sharan Jaime Primary Care Provider Encounter Details Date Type Department Care Team (Late st Contact Info) Description 10/18/2020 Lab Requisition [facility] Services [address] [place] [address] Tabatha Lynn, [facility] [address] [place] [address] Social History Tobacco Use Types Packs/Day Years Used Date Smoking Tobacco: Never Assessed Comments Unknown Sex and Gender Information Value Date Recorded Sex Assigned at Not on file Legal Sex Female 5:42 AM SENIOR ACCOUNTANT ANALYST Gender Identity Not on file Sexual Orientation Not on file documented as of this encounter Plan of Treatment Not on file documented as of this encounter Procedures Procedure Name Priority Date/Time Associated Diagnosis Comments PROTIME-INR Routine 10/18/2020 6:34 AM SENIOR ACCOUNTANT ANALYST documented in this encounter Results * (ABNORMAL) PROTIME-INR (10/18/2020 6:34 AM SENIOR ACCOUNTANT ANALYST) PROTIME 34.1(H) 11.9 - 15.5 Seconds 10/18/2020 5:19 PM SENIOR ACCOUNTANT ANALYST [facility] INR 3.2(H) 0.8 - 1.2 10/18/2020 5:19 PM SENIOR ACCOUNTANT ANALYST [facility] Blood Collection / Unknown 10/18/2020 6:34 AM SENIOR ACCOUNTANT ANALYST 10/18/2020 4:57 PM SENIOR ACCOUNTANT ANALYST Narrative [facility] - 10/18/2020 5:19 PM SENIOR ACCOUNTANT ANALYST Expected Values for INR: DVT/PE Goal INR 2.5; range 2.0 - 3.0 Valve Replacement Tissue Goal INR 2.5; range 2.0 - 3.0 Valve Replacement Mechanical Goal INR 3.0; range 2.5 - 3.5 POST-MA Goal INR 2.5; range 2.0 - 3.0 or Goal INR 3.0; range 2.5 - 3.5 Atrial Fibrillation Goal INR 2.5; range 2.0 - 3.0 Ischemic Stroke Goal INR 2.5; range 2.0 - 3.0 For additional information see Guidelines for Anticoagulation available from the pharmacy Aspen Mitchell, Pharm D. Tabatha Neff BALLISTICIAN HEMATOLOGY ORDERABLES Final Result [facility] [address] [place] [address] documented in this encounter Visit Diagnoses Not on filedocumented in this encounter Care Teams Buggy Ladle Tender Relationship Specialty Start Date End Date Sharan Gómez Jr., MD [address] [place] [address] PCP - General 08/10/05 documented as of this encounter
--- OUTSIDE RECORDS SUMMARY | 2025-07-27 10:18 | XMS_ITS | Encounter Summary ---
Author Organization [facility] Address [address] [place] [address] Care Team Providers Care Pipe Line Inspector Name Role Phone Rico Muñiz MD, Sharan Jaime Primary Care Provider Encounter Details Date Type Department Care Team (Latest Contact Info) Description 06/20/1999 Outpatient Historical [facility] [place] [address] [place] [address] Serge Arrington MD [address] [place] [address] Mitral valve disorder (Primary Dx); Unspecified essential hypertension; Other and unspecified hyperlipidemia; Hematuria Social History Tobacco Use Types Packs/Day Years Used Date Smoking Tobacco: Never Assessed Comments Unknown Sex and Gender Information Value Date Recorded Sex Assigned at Not on file Legal Sex Female 5:42 AM WOOD STOCK BLANK HANDLER Gender Identity Not on file Sexual Orientation Not on file documented as of this encounter Plan of Treatment Not on file documented as of this encounter Visit Diagnoses Diagnosis Mitral valve disorder- Primary Mitral valve disorders Unspecified essential hypertension Other and unspecified hyperlipidemia Hematuria documented in this encounter Care Teams Pipe Line Inspector Relationship Specialty Start Date End Date Sharan Gómez Jr., MD [address] [place] [address] PCP - General 08/10/05 documented as of this encounter
--- OUTSIDE RECORDS SUMMARY | 2025-07-27 10:18 | XMS_ITS | Encounter Summary ---
Author Organization [facility] Address [address] [facility] Attn: [place] [address] Care Team Providers Care Strainer Tender Name Role Phone Rico Muñiz MD, Sharan Jaime Primary Care Provider Encounter Details Date Type Department Care Team (Late st Contact Info) Description 02/15/2001 Outpatient Historical Sharan Gómez Jr., MD [address] [place] [address] Social History Tobacco Use Types Packs/Day Years Used Date Smoking Tobacco: Never Assessed Comments Unknown Sex and Gender Information Value Date Recorded Sex Assigned at Not on file Legal Sex Female 5:42 AM TUBE SPLICER Gender Identity Not on file Sexual Orientation Not on file documented as of this encounter Plan of Treatment Not on file documented as of this encounter Visit Diagnoses Not on filedocumented in this encounter Care Teams Strainer Tender Relationship Specialty Start Date End Date Sharan Gómez Jr., MD [address] [place] [address] PCP - General 08/10/05 documented as of this encounter
--- OUTSIDE RECORDS SUMMARY | 2025-07-27 10:18 | XMS_ITS | Encounter Summary ---
Author Organization [facility] Address [address] [place] [address] Care Team Providers Care Truck Despatcher Name Role Phone Rico Muñiz MD, Sharan Jaime Primary Care Provider Encounter Details Date Type Department Care Team (Latest Contact Info) Description 08/16/2000 Outpatient Historical [facility] Sharan Gómez Jr., MD [address] [place] [address] Pure hypercholesterolem (Primary Dx); Unspecified essential hypertension; Encounter for long-term (current) use of other medications Social History Tobacco Use Types Packs/Day Years Used Date Smoking Tobacco: Never Assessed Comments Unknown Sex and Gender Information Value Date Recorded Sex Assigned at Not on file Legal Sex Female 5:42 AM GAME ROOM ATTENDANT Gender Identity Not on file Sexual Orientation Not on file documented as of this encounter Plan of Treatment Not on file documented as of this encounter Visit Diagnoses Diagnosis Pure hypercholesterolem- Primary Pure hypercholesterolemia Unspecified essential hypertension Encounter for long-term (current) use of other medications documented in this encounter Care Teams Truck Despatcher Relationship Specialty Start Date End Date Sharan Gómez Jr., MD [address] [place] [address] PCP - General 08/10/05 documented as of this encounter
--- OUTSIDE RECORDS SUMMARY | 2025-07-27 10:18 | XMS_ITS | Encounter Summary ---
Author Organization [facility] Address [address] [facility] Attn: [place] [address] Care Team Providers Care Insole Filler Name Role Phone Rico Muñiz MD, Sharan Jaime Primary Care Provider Encounter Details Date Type Department Care Team (Late st Contact Info) Description 11/09/2000 Outpatient Historical Sharan Gómez Jr., MD [address] [place] [address] Social History Tobacco Use Types Packs/Day Years Used Date Smoking Tobacco: Never Assessed Comments Unknown Sex and Gender Information Value Date Recorded Sex Assigned at Not on file Legal Sex Female 5:42 AM JOINER HELPER Gender Identity Not on file Sexual Orientation Not on file documented as of this encounter Plan of Treatment Not on file documented as of this encounter Visit Diagnoses Not on filedocumented in this encounter Care Teams Insole Filler Relationship Specialty Start Date End Date Sharan Gómez Jr., MD [address] [place] [address] PCP - General 08/10/05 documented as of this encounter
--- OUTSIDE RECORDS SUMMARY | 2025-07-27 10:18 | XMS_ITS | Encounter Summary ---
Author Organization [facility] Address [address] [place] [address] Care Team Providers Care Spinner Frame Name Role Phone Rico Muñiz MD, Sharan Jaime Primary Care Provider Encounter Details Date Type Department Care Team (Latest Contact Info) Description 08/10/2005 Outpatient Historical [facility] [place] [address] [facility] [address] [place] [address] Bill Negron MD [address] [place] [address] ABN FIND-STOOL CONTENTS-OCC BLOOD (Primary Dx); INT HEMORRHOID W/O COMPL; ANAL FISSURE Social History Tobacco Use Types Packs/Day Years Used Date Smoking Tobacco: Never Assessed Comments Unknown Sex and Gender Information Value Date Recorded Sex Assigned at Not on file Legal Sex Female 5:42 AM WAITSTAFF CAPTAIN Gender Identity Not on file Sexual Orientation Not on file documented as of this encounter Plan of Treatment Not on file documented as of this encounter Visit Diagnoses Diagnosis Nonspecific abnormal finding in stool contents- Primary Internal hemorrhoids without mention of complication Anal fissure documented in this encounter Care Teams Spinner Frame Relationship Specialty Start Date End Date Sharan Gómez Jr., MD [address] [place] [address] PCP - General 08/10/05 documented as of this encounter
--- OUTSIDE RECORDS SUMMARY | 2025-07-27 10:18 | XMS_ITS | Encounter Summary ---
Author Organization [facility] Address [address] [place] [address] Care Team Providers Care Acute Care Nursing Assistant Name Role Phone Rico Muñiz MD, Sharan Jaime Primary Care Provider Encounter Details Date Type Department Care Team (Latest Contact Info) Description 03/18/1999 Outpatient Historical [facility] Sharan Gómez Jr., MD [address] [place] [address] Endocarditis, valve unspecified, unspecified cause (Primary Dx); long term care phlebotomist (current) use of anticoagulants Social History Tobacco Use Types Packs/Day Years Used Date Smoking Tobacco: Never Assessed Comments Unknown Sex and Gender Information Value Date Recorded Sex Assigned at Not on file Legal Sex Female 5:42 AM SENIOR GOVERNMENT PROGRAM ANALYST Gender Identity Not on file Sexual Orientation Not on file documented as of this encounter Plan of Treatment Not on file documented as of this encounter Visit Diagnoses Diagnosis Endocarditis, valve unspecified, unspecified cause- Primary long term care phlebotomist (current) use of anticoagulants Long-term (current) use of anticoagulants documented in this encounter Care Teams Acute Care Nursing Assistant Relationship Specialty Start Date End Date Sharan Gómez Jr., MD [address] [place] [address] PCP - General 08/10/05 documented as of this encounter
--- OUTSIDE RECORDS SUMMARY | 2025-07-27 10:18 | XMS_ITS | Encounter Summary ---
Author Organization [facility] Address [address] [place] [address] Care Team Providers Care Hem Inspector Name Role Phone Rico Muñiz MD, Sharan Jaime Primary Care Provider Encounter Details Date Type Department Care Team (Latest Contact Info) Description 01/03/2002 Outpatient Historical [facility] Sharan Gómez Jr., MD [address] [place] [address] FLU W RESP MANIFEST NEC (Primary Dx); AFTERCARE INTERMEDIATE ANTICOAG USE Social History Tobacco Use Types Packs/Day Years Used Date Smoking Tobacco: Never Assessed Comments Unknown Sex and Gender Information Value Date Recorded Sex Assigned at Not on file Legal Sex Female 5:42 AM OLERICULTURIST Gender Identity Not on file Sexual Orientation Not on file documented as of this encounter Plan of Treatment Not on file documented as of this encounter Visit Diagnoses Diagnosis Influenza with other respiratory manifestations- Primary manager terminal (current) use of anticoagulants Long-term (current) use of anticoagulants documented in this encounter Care Teams Hem Inspector Relationship Specialty Start Date End Date Sharan Gómez Jr., MD [address] [place] [address] PCP - General 08/10/05 documented as of this encounter
--- OUTSIDE RECORDS SUMMARY | 2025-07-27 10:18 | XMS_ITS | Encounter Summary ---
Author Organization [facility] Address [address] [facility] Attn: [place] [address] Care Team Providers Care Rib Cutter Name Role Phone Rico Muñiz MD, Sharan Jaime Primary Care Provider Encounter Details Date Type Department Care Team (Late st Contact Info) Description 01/04/2001 Outpatient Historical Sharan Gómez Jr., MD [address] [place] [address] Social History Tobacco Use Types Packs/Day Years Used Date Smoking Tobacco: Never Assessed Comments Unknown Sex and Gender Information Value Date Recorded Sex Assigned at Not on file Legal Sex Female 5:42 AM RADIO STATION ENGINEER Gender Identity Not on file Sexual Orientation Not on file documented as of this encounter Plan of Treatment Not on file documented as of this encounter Visit Diagnoses Not on filedocumented in this encounter Care Teams Rib Cutter Relationship Specialty Start Date End Date Sharan Gómez Jr., MD [address] [place] [address] PCP - General 08/10/05 documented as of this encounter
--- OUTSIDE RECORDS SUMMARY | 2025-07-27 10:18 | XMS_ITS | Encounter Summary ---
Author Organization [facility] Address [address] [place] [address] Care Team Providers Care Transit Mixer Operator Name Role Phone Rico Muñiz MD, Sharan Jaime Primary Care Provider Encounter Details Date Type Department Care Team (Latest Contact Info) Description 04/18/1999 Outpatient Historical [facility] Sharan Gómez Jr., MD [address] [place] [address] Headache(784.0) (Primary Dx); Unspecified essential hypertension; superintendent terminal (current) use of anticoagulants Social History Tobacco Use Types Packs/Day Years Used Date Smoking Tobacco: Never Assessed Comments Unknown Sex and Gender Information Value Date Recorded Sex Assigned at Not on file Legal Sex Female 5:42 AM CHILD PSYCHOMETRIST Gender Identity Not on file Sexual Orientation Not on file documented as of this encounter Plan of Treatment Not on file documented as of this encounter Visit Diagnoses Diagnosis Headache(784.0)- Primary Headache Unspecified essential hypertension assisted (current) use of anticoagulants Long-term (current) use of anticoagulants documented in this encounter Care Teams Transit Mixer Operator Relationship Specialty Start Date End Date Sharan Gómez Jr., MD [address] [place] [phone] PCP - General 08/10/05 documented as of this encounter
--- OUTSIDE RECORDS SUMMARY | 2025-07-27 10:18 | XMS_ITS | Encounter Summary ---
Author Organization [facility] Address [address] [place] [address] Care Team Providers Care Sewing Machine Operator Semiautomatic Name Role Phone Rico Muñiz MD, Sharan Jaime Primary Care Provider Encounter Details Date Type Department Care Team (Late st Contact Info) Description 07/26/1999 Outpatient Historical [facility] Cardiology- [place] [address] [place] [phone] [place] [address] [place] [address] Pain in limb (Primary Dx); Heart valve replaced by other means Social History Tobacco Use Types Packs/Day Years Used Date Smoking Tobacco: Never Assessed Comments Unknown Sex and Gender Information Value Date Recorded Sex Assigned at Not on file Legal Sex Female 5:42 AM OXYACETYLENE BURNER Gender Identity Not on file Sexual Orientation Not on file documented as of this encounter Plan of Treatment Not on file documented as of this encounter Visit Diagnoses Diagnosis Pain in limb- Primary Pain in soft tissues of limb Heart valve replaced by other means documented in this encounter Care Teams Sewing Machine Operator Semiautomatic Relationship Specialty Start Date End Date Sharan Gómez Jr., MD [address] [place] [address] PCP - General 08/10/05 documented as of this encounter
--- OUTSIDE RECORDS SUMMARY | 2025-07-27 10:18 | XMS_ITS | Encounter Summary ---
Author Organization [facility] Address [address] [place] [address] Care Team Providers Care Elementary School Teacher'S Aide Name Role Phone Rico Muñiz MD, Sharan Jaime Primary Care Provider Encounter Details Date Type Department Care Team (Latest Contact Info) Description 11/25/1999 Outpatient Historical [facility] Sharan Gómez Jr., MD [address] [place] [address] Epistaxis (Primary Dx); USP (current) use of anticoagulants Social History Tobacco Use Types Packs/Day Years Used Date Smoking Tobacco: Never Assessed Comments Unknown Sex and Gender Information Value Date Recorded Sex Assigned at Not on file Legal Sex Female 5:42 AM SUPERVISING FLOORPERSON Gender Identity Not on file Sexual Orientation Not on file documented as of this encounter Plan of Treatment Not on file documented as of this encounter Visit Diagnoses Diagnosis Epistaxis- Primary USP (current) use of anticoagulants Long-term (current) use of anticoagulants documented in this encounter Care Teams Elementary School Teacher'S Aide Relationship Specialty Start Date End Date Sharan Gómez Jr., MD [address] [place] [address] PCP - General 08/10/05 documented as of this encounter
--- OUTSIDE RECORDS SUMMARY | 2025-07-27 10:18 | XMS_ITS | Encounter Summary ---
Author Organization [facility] Address [address] [place] [address] Care Team Providers Care Inking Machine Tender Name Role Phone Rico Muñiz MD, Sharan Jaime Primary Care Provider Encounter Details Date Type Department Care Team (Latest Contact Info) Description 06/20/1999 Outpatient Historical [facility] Imaging Services-[place]ais[place] [address] [place] [address] Serge Arrington MD [address] [place] [address] Cough (Primary Dx) Social History Tobacco Use Types Packs/Day Years Used Date Smoking Tobacco: Never Assessed Comments Unknown Sex and Gender Information Value Date Recorded Sex Assigned at Not on file Legal Sex Female 5:42 AM BUSINESS OFFICE TECHNOLOGY INSTRUCTOR Gender Identity Not on file Sexual Orientation Not on file documented as of this encounter Plan of Treatment Not on file documented as of this encounter Visit Diagnoses Diagnosis Cough- Primary documented in this encounter Care Teams Inking Machine Tender Relationship Specialty Start Date End Date Sharan Gómez Jr., MD [address] [place] [address] PCP - General 08/10/05 documented as of this encounter
--- OUTSIDE RECORDS SUMMARY | 2025-07-27 10:18 | XMS_ITS | Encounter Summary ---
Author Organization [facility] Address [address] Attn: [place] [address] Care Team Providers Care Auto Locator Name Role Phone Rico Muñiz MD, Sharan Jaime Primary Care Provider Encounter Details Date Type Department Care Team (Late st Contact Info) Description 12/26/1999 Outpatient Historical Sharan Gómez Jr., MD [address] [place] [address] Social History Tobacco Use Types Packs/Day Years Used Date Smoking Tobacco: Never Assessed Comments Unknown Sex and Gender Information Value Date Recorded Sex Assigned at Not on file Legal Sex Female 5:42 AM WELFARE SERVICE AIDE Gender Identity Not on file Sexual Orientation Not on file documented as of this encounter Plan of Treatment Not on file documented as of this encounter Visit Diagnoses Not on filedocumented in this encounter Care Teams Auto Locator Relationship Specialty Start Date End Date Sharan Gómez Jr., MD [address] [place] [address] PCP - General 08/10/05 documented as of this encounter
--- OUTSIDE RECORDS SUMMARY | 2025-07-27 10:18 | XMS_ITS | Encounter Summary ---
Author Organization [facility] Address [address] [place] [address] Care Team Providers Care A P Manager Name Role Phone Rico Muñiz MD, Sharan Jaime Primary Care Provider Encounter Details Date Type Department Care Team (Latest Contact Info) Description 10/10/1999 Outpatient Historical [facility] Sharan Gómez Jr., MD [address] [place] [address] Unspecified circulatory system disorder (Primary Dx); Unspecified essential hypertension; halfway (current) use of anticoagulants Social History Tobacco Use Types Packs/Day Years Used Date Smoking Tobacco: Never Assessed Comments Unknown Sex and Gender Information Value Date Recorded Sex Assigned at Not on file Legal Sex Female 5:42 AM CUSHION INSTALLER Gender Identity Not on file Sexual Orientation Not on file documented as of this encounter Plan of Treatment Not on file documented as of this encounter Visit Diagnoses Diagnosis Unspecified circulatory system disorder- Primary Unspecified essential hypertension halfway (current) use of anticoagulants Long-term (current) use of anticoagulants documented in this encounter Care Teams A P Manager Relationship Specialty Start Date End Date Sharan Gómez Jr., MD [address] [place] [address] PCP - General 08/10/05 documented as of this encounter
--- OUTSIDE RECORDS SUMMARY | 2025-07-27 10:18 | XMS_ITS | Encounter Summary ---
Author Organization [facility] Address [address] [place] [address] Care Team Providers Care Ropeman Name Role Phone Rico Muñiz MD, Sharan Jaime Primary Care Provider Encounter Details Date Type Department Care Team (Latest Contact Info) Description 09/12/2000 Outpatient Historical [facility] Sharan Gómez Jr., MD [address] [place] [address] Other and unspecified hyperlipidemia (Primary Dx); Other nonspecific finding on examination of urine; Personal history of other disorder of urinary system; [facility] (current) use of anticoagulants Social History Tobacco Use Types Packs/Day Years Used Date Smoking Tobacco: Never Assessed Comments Unknown Sex and Gender Information Value Date Recorded Sex Assigned at Not on file Legal Sex Female 5:42 AM 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 Gender Identity Not on file Sexual Orientation Not on file documented as of this encounter Plan of Treatment Not on file documented as of this encounter Visit Diagnoses Diagnosis Other and unspecified hyperlipidemia- Primary Other nonspecific finding on examination of urine Personal history of other disorder of urinary system [facility] (current) use of anticoagulants Long-term (current) use of anticoagulants documented in this encounter Care Teams Ropeman Relationship Specialty Start Date End Date Sharan Gómez Jr., MD [address] [place] [address] PCP - General 08/10/05 documented as of this encounter
--- OUTSIDE RECORDS SUMMARY | 2025-07-27 10:18 | XMS_ITS | Clinical Summary ---
Author Organization [facility] Address [address] [place] [address] Phone Care Team Providers Care Manager Of Corporate Communications Name Role Phone Rico Muñiz MD, Sharan Jaime Primary Care Provider Immunizations Immunization Administration Dates Next Due (PNEUMOVAX 23)(50 YRS UP) PN EUMOCOCCAL POLYSACCHARIDE (PPV23) 0.5 ML, IM 06/26/2003 Social History Tobacco Use Types Packs/Day Years Used Date Smoking Tobacco: Never Assessed Comments Unknown Sex and Gender Information Value Date Recorded Sex Assigned at Not on file Legal Sex Female 5:42 AM FIRE INVESTIGATOR Gender Identity Not on file Sexual [...] AND [place] Care Teams Manager Of Corporate Communications Relationship Specialty Start Date End Date Sharan Gómez Jr., MD [address] [place] [address] PCP - General 08/10/05
--- OUTSIDE RECORDS SUMMARY | 2025-07-27 10:18 | XMS_ITS | Encounter Summary ---
Author Organization [facility] Address [address] [place] [address] Care Team Providers Care Pear Picker Name Role Phone Rico Muñiz MD, Sharan Jaime Primary Care Provider Encounter Details Date Type Department Care Team (Latest Contact Info) Description 02/15/2001 Outpatient Historical [facility] Sharan Gómez Jr., MD [address] [place] [address] Unspecified essential hypertension (Primary Dx); Heart valve replaced by other means Social History Tobacco Use Types Packs/Day Years Used Date Smoking Tobacco: Never Assessed Comments Unknown Sex and Gender Information Value Date Recorded Sex Assigned at Not on file Legal Sex Female 5:42 AM OFFICE DIRECTOR Gender Identity Not on file Sexual Orientation Not on file documented as of this encounter Plan of Treatment Not on file documented as of this encounter Visit Diagnoses Diagnosis Unspecified essential hypertension- Primary Heart valve replaced by other means documented in this encounter Care Teams Pear Picker Relationship Specialty Start Date End Date Sharan Gómez Jr., MD [address] [place] [phone] PCP - General 08/10/05 documented as of this encounter
--- OUTSIDE RECORDS SUMMARY | 2025-07-27 10:18 | XMS_ITS | Encounter Summary ---
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 churn buttermaker (current) use of anticoagulants Social History Tobacco Use Types Packs/Day Years Used Date Smoking Tobacco: Never Assessed Comments Unknown Sex and Gender Information Value Date Recorded Sex Assigned at Not on file Legal Sex Female 5:42 AM 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 Gender Identity Not on file Sexual Orientation Not on file documented as of this encounter Plan of Treatment Not on file documented as of this encounter Visit Diagnoses Diagnosis Osteoarthrosis, unspecified whether generalized or localized, unspecified site- Primary Heart valve replaced by other means continuous churn buttermaker (current) use of anticoagulants Long-term (current) use of anticoagulants documented in this encounter Care Teams Hardness Inspector Relationship Specialty Start Date End Date Sharan Gómez Jr., MD [address] [place] [address] PCP - General 08/10/05 documented as of this encounter
--- OUTSIDE RECORDS SUMMARY | 2025-07-27 10:18 | XMS_ITS | Encounter Summary ---
Author Organization [facility] Address [address] [place] [address] Care Team Providers Care Sap Plant Maintenance Consultant Name Role Phone Rico Muñiz MD, Sharan Jaime Primary Care Provider Encounter Details Date Type Department Care Team (Latest Contact Info) Description 01/30/2001 Outpatient Historical [facility] Sharan Gómez Jr., MD [address] [place] [address] Endocarditis, valve unspecified, unspecified cause (Primary Dx); Acute sinusitis, unspecified; Bronchitis, not specified as acute or chronic Social History Tobacco Use Types Packs/Day Years Used Date Smoking Tobacco: Never Assessed Comments Unknown Sex and Gender Information Value Date Recorded Sex Assigned at Not on file Legal Sex Female 5:42 AM FULL STACK NET DEVELOPER Gender Identity Not on file Sexual Orientation Not on file documented as of this encounter Plan of Treatment Not on file documented as of this encounter Visit Diagnoses Diagnosis Endocarditis, valve unspecified, unspecified cause- Primary Acute sinusitis, unspecified Bronchitis, not specified as acute or chronic documented in this encounter Care Teams Sap Plant Maintenance Consultant Relationship Specialty Start Date End Date Sharan Gómez Jr., MD [address] [place] [address] PCP - General 08/10/05 documented as of this encounter
--- OUTSIDE RECORDS SUMMARY | 2025-07-27 10:18 | XMS_ITS | Encounter Summary ---
Author Organization [facility] Address [address] [place] [address] Care Team Providers Care Manager Of Radiology Name Role Phone Rico Muñiz MD, Sharan Jaime Primary Care Provider Encounter Details Date Type Department Care Team (Latest Contact Info) Description 12/31/2000 Outpatient Historical [facility] Medicine [place] [address] [facility] [address] [place] [address] Larry Olvera MD Screening for malignant neoplasm of the rectum (Primary Dx) Social History Tobacco Use Types Packs/Day Years Used Date Smoking Tobacco: Never Assessed Comments Unknown Sex and Gender Information Value Date Recorded Sex Assigned at Not on file Legal Sex Female 5:42 AM 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
--- OUTSIDE RECORDS SUMMARY | 2025-07-27 10:18 | XMS_ITS | Encounter Summary ---
Author Organization [facility] Address [address] [place] [address] Care Team Providers Care Police Inspector Name Role Phone Rico Muñiz MD, Sharan Jaime Primary Care Provider Encounter Details Date Type Department Care Team (Latest Contact Info) Description 04/01/1999 Outpatient Historical [facility] Sharan Gómez Jr., MD [address] [place] [address] Type II or unspecified type diabetes mellitus without mention of complication, not stated as uncontrolled (Primary Dx); Dietary surveil/counselor education professor Social History Tobacco Use Types Packs/Day Years Used Date Smoking Tobacco: Never Assessed Comments Unknown Sex and Gender Information Value Date Recorded Sex Assigned at Not on file Legal Sex Female 5:42 AM INDUSTRY SEGMENT SPECIALIST Gender Identity Not on file Sexual Orientation Not on file documented as of this encounter Plan of Treatment Not on file documented as of this encounter Visit Diagnoses Diagnosis Type II or unspecified type diabetes mellitus without mention of complication, not stated as uncontrolled- Primary Dietary surveil/counselor education professor Dietary surveillance and counseling documented in this encounter Care Teams Police Inspector Relationship Specialty Start Date End Date Sharan Gómez Jr., MD [address] [place] [phone] PCP - General 08/10/05 documented as of this encounter
--- OUTSIDE RECORDS SUMMARY | 2025-07-27 10:18 | XMS_ITS | Encounter Summary ---
Author Organization [facility] Address [address] [place] [address] Care Team Providers Care Hospice Clinical Supervisor Name Role Phone Rico Muñiz MD, Sharan Jaime Primary Care Provider Encounter Details Date Type Department Care Team (Late st Contact Info) Description 07/30/2000 Outpatient Historical [facility] Social History Tobacco Use Types Packs/Day Years Used Date Smoking Tobacco: Never Assessed Comments Unknown Sex and Gender Information Value Date Recorded Sex Assigned at Not on file Legal Sex Female 5:42 AM BIOLOGY ADJUNCT INSTRUCTOR Gender Identity Not on file Sexual Orientation Not on file documented as of this encounter Plan of Treatment Not on file documented as of this encounter Visit Diagnoses Not on filedocumented in this encounter Care Teams Hospice Clinical Supervisor Relationship Specialty Start Date End Date Sharan Gómez Jr., MD [address] [place] [address] PCP - General 08/10/05 documented as of this encounter
--- OUTSIDE RECORDS SUMMARY | 2025-07-27 10:18 | XMS_ITS | Encounter Summary ---
Author Organization [facility] Address [address] [place] [address] Care Team Providers Care Shell Trim Operator Name Role Phone Rico Muñiz MD, Sharan Jaime Primary Care Provider Encounter Details Date Type Department Care Team (Late st Contact Info) Description 06/21/2000 Outpatient Historical [facility] Serge Arrington MD [address] [facility] [address] [place] [address] Unspecified essential hypertension (Primary Dx); Mitral valve disorder; retirement (current) use of anticoagulants Social History Tobacco Use Types Packs/Day Years Used Date Smoking Tobacco: Never Assessed Comments Unknown Sex and Gender Information Value Date Recorded Sex Assigned at Not on file Legal Sex Female 5:42 AM TRUCKMAN Gender Identity Not on file Sexual Orientation Not on file documented as of this encounter Plan of Treatment Not on file documented as of this encounter Visit Diagnoses Diagnosis Unspecified essential hypertension- Primary Mitral valve disorder Mitral valve disorders retirement (current) use of anticoagulants Long-term (current) use of anticoagulants documented in this encounter Care Teams Shell Trim Operator Relationship Specialty Start Date End Date Sharan Gómez Jr., MD [address] [place] [address] PCP - General 08/10/05 documented as of this encounter
--- OUTSIDE RECORDS SUMMARY | 2025-07-27 10:18 | XMS_ITS | Encounter Summary ---
Author Organization [facility] Address [address] [place] [address] Care Team Providers Care Marketing Information Analyst Name Role Phone Rico Muñiz MD, Sharan Jaime Primary Care Provider Encounter Details Date Type Department Care Team (Late st Contact Info) Description 10/25/2020 Lab Requisition [facility] Laboratory Services [address] [place] [address] Paulina Peterson MD [address] [place] [address] Social History Tobacco Use Types Packs/Day Years Used Date Smoking Tobacco: Never Assessed Comments Unknown Sex and Gender Information Value Date Recorded Sex Assigned at Not on file Legal Sex Female 5:42 AM LINE WORKER Gender Identity Not on file Sexual Orientation Not on file documented as of this encounter Plan of Treatment Not on file documented as of this encounter Procedures Procedure Name Priority Date/Time Associated Diagnosis Comments PROTIME-INR Routine 10/25/2020 5:18 AM LINE WORKER documented in this encounter Results * (ABNORMAL) PROTIME-INR (10/25/2020 5:18 AM LINE WORKER) PROTIME 34.3(H) 11.9 - 15.5 Seconds 10/25/2020 7:[address] [facility] INR 3.3(H) 0.8 - 1.2 10/25/2020 7:01 PM LINE WORKER [facility] Blood Collection / Unknown 10/25/2020 5:18 AM LINE WORKER 10/25/2020 6:44 PM LINE WORKER Narrative [facility] - 10/25/2020 7:01 PM LINE WORKER Expected Values for INR: DVT/PE Goal INR [...] Peterson MD HEMATOLOGY ORDERABLES Maame smart Result [facility] [address] [place] [address] documented in this encounter Visit Diagnoses Not on filedocumented in this encounter Care Teams Marketing Information Analyst Relationship Specialty Start Date End Date Sharan Gómez Jr., MD [address] [place] [address] PCP - General 08/10/05 documented as of this encounter
--- OUTSIDE RECORDS SUMMARY | 2025-07-27 10:18 | XMS_ITS | Encounter Summary ---
Author Organization [facility] Address [address] [place] [address] Care Team Providers Care Scientific Process Operator Name Role Phone Rico Muñiz MD, Sharan Jaime Primary Care Provider Encounter Details Date Type Department Care Team (Latest Contact Info) Description 11/09/2000 Outpatient Historical [facility] Sharan Gómez Jr., MD [address] [place] [address] Unspecified essential hypertension (Primary Dx); Pure hypercholesterolem; Endocarditis, valve unspecified, unspecified cause; technician terminal and repeater (current) use of anticoagulants Social History Tobacco Use Types Packs/Day Years Used Date Smoking Tobacco: Never Assessed Comments Unknown Sex and Gender Information Value Date Recorded Sex Assigned at Not on file Legal Sex Female 5:[address] Gender Identity Not on file Sexual Orientation Not on file documented as of this encounter Plan of Treatment Not on file documented as of this encounter Visit Diagnoses Diagnosis Unspecified essential hypertension- Primary Pure hypercholesterolem Pure hypercholesterolemia Endocarditis, valve unspecified, unspecified cause half-way (current) use of anticoagulants Long-term (current) use of anticoagulants documented in this encounter Care Teams Scientific Process Operator Relationship Specialty Start Date End Date Sharan Gómez Jr., MD [address] [place] [address] PCP - General 08/10/05 documented as of this encounter
--- OUTSIDE RECORDS SUMMARY | 2025-07-27 10:18 | XMS_ITS | Encounter Summary ---
Author Organization [facility] Address [address] [facility] Attn: [place] [address] Care Team Providers Care Help Desk Supervisor Name Role Phone Rico Muñiz MD, [...] file Legal Sex Female 5:42 AM VEHICLE MODIFICATION TECHNICIAN Gender Identity Not on file Sexual Orientation Not on file documented as of this encounter Plan of Treatment Not on file documented as of this encounter Visit Diagnoses Not on filedocumented in this encounter Care Teams Help Desk Supervisor Relationship Specialty Start Date End Date Sharan Gómez Jr., MD [address] [place] [address] PCP - General 08/10/05 documented as of this encounter
--- OUTSIDE RECORDS SUMMARY | 2025-07-27 10:18 | XMS_ITS | Encounter Summary ---
Author Organization [facility] Address [address] [place] [address] Care Team Providers Care Polymerization Engineer Name Role Phone Rico Muñiz MD, Sharan Jaime Primary Care Provider Encounter Details Date Type Department Care Team (Latest Contact Info) Description 08/10/2005 Outpatient Historical [facility] [place] [address] [place] [address] Bill Negron MD [address] [place] [address] INT HEMORRHOID W/O COMPL (Primary Dx) Social History Tobacco Use Types Packs/Day Years Used Date Smoking Tobacco: Never Assessed Comments Unknown Sex and Gender Information Value Date Recorded Sex Assigned at Not on file Legal Sex Female 5:42 AM FRUIT BAR MAKER Gender Identity Not on file Sexual [...] Primary documented in this encounter Care Teams Polymerization Engineer Relationship Specialty Start Date End Date Sharan Gómez Jr., MD [address] [place] [address] PCP - General 08/10/05 documented as of this encounter
--- OUTSIDE RECORDS SUMMARY | 2025-07-27 10:18 | XMS_ITS | Encounter Summary ---
Author Organization [facility] Address [address] [place] [address] Care Team Providers Care Copying Machine Mechanic Name Role Phone Rico Muñiz MD, Sharan Jaime Primary Care Provider Encounter Details Date Type Department Care Team (Latest Contact Info) Description 08/31/2000 Outpatient Historical [facility] Sharan Gómez Jr., MD [address] [place] [address] Pure hypercholesterolem (Primary Dx); Dietary surveil/certified personal finance counselor Social History Tobacco Use Types Packs/Day Years Used Date Smoking Tobacco: Never Assessed Comments Unknown Sex and Gender Information Value Date Recorded Sex Assigned at Not on file Legal Sex Female 5:42 AM TOOL DISPATCHER Gender Identity Not on file Sexual Orientation Not on file documented as of this encounter Plan of Treatment Not on file documented as of this encounter Visit Diagnoses Diagnosis Pure hypercholesterolem- Primary Pure hypercholesterolemia Dietary surveil/certified personal finance counselor Dietary surveillance and counseling documented in this encounter Care Teams Copying Machine Mechanic Relationship Specialty Start Date End Date Sharan Gómez Jr., MD [address] [place] [address] PCP - General 08/10/05 documented as of this encounter
--- OUTSIDE RECORDS SUMMARY | 2025-07-27 10:18 | XMS_ITS | Encounter Summary ---
Author Organization [facility] Address [address] [place] [address] Care Team Providers Care Fiction Writer Name Role Phone Rico Muñiz MD, Sharan Jaime Primary Care Provider Encounter Details Date Type Department Care Team (Latest Contact Info) Description 01/04/2001 Outpatient Historical [facility] Sharan Gómez Jr., MD [address] [place] [address] Acute upper respiratory infections of unspecified site (Primary Dx); intermediate (current) use of anticoagulants Social History Tobacco Use Types Packs/Day Years Used Date Smoking Tobacco: Never Assessed Comments Unknown Sex and Gender Information Value Date Recorded Sex Assigned at Not on file Legal Sex Female 5:42 AM 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
--- OUTSIDE RECORDS SUMMARY | 2025-07-27 10:18 | XMS_ITS | Encounter Summary ---
Author Organization [facility] Address [address] [facility] Attn: [place] [address] Care Team Providers Care Internet Marketing Specialist Name Role Phone Rico Muñiz MD, Sharan Jaime Primary Care Provider Encounter Details Date Type Department Care Team (Late st Contact Info) Description 04/07/2002 Outpatient Historical Sharan Gómez Jr., MD [address] [place] [address] Social History Tobacco Use Types Packs/Day Years Used Date Smoking Tobacco: Never Assessed Comments Unknown Sex and Gender Information Value Date Recorded Sex Assigned at Not on file Legal Sex Female 5:42 AM MOLD DUMPER Gender Identity Not on file Sexual Orientation Not on file documented as of this encounter Plan of Treatment Not on file documented as of this encounter Visit Diagnoses Not on filedocumented in this encounter Care Teams Internet Marketing Specialist Relationship Specialty Start Date End Date Sharan Gómez Jr., MD [address] [place] [address] PCP - General 08/10/05 documented as of this encounter
--- OUTSIDE RECORDS SUMMARY | 2025-07-27 10:18 | XMS_ITS | Encounter Summary ---
Author Organization [facility] Address [address] [place] [address] Care Team Providers Care Gray Tender Name Role Phone Rico Muñiz MD, Sharan Jaime Primary Care Provider Encounter Details Date Type Department Care Team (Late st Contact Info) Description 10/16/2020 Lab Requisition [facility] General Laboratory Services [place] [address] [place] [id number] Mtnv, External Provider [address] [address] [place] [address] Social History Tobacco Use Types Packs/Day Years Used Date Smoking Tobacco: Never Assessed Comments Unknown Sex and Gender Information Value Date Recorded Sex Assigned at Not on file Legal Sex Female 5:42 AM ROOF FOREMAN Gender Identity Not on file Sexual Orientation Not on file documented as of this encounter Plan of Treatment Not on file documented as of this encounter Procedures Procedure Name Priority Date/Time Associated Diagnosis Comments PROTIME-INR Routine 10/16/2020 10:20 AM ROOF FOREMAN documented in this encounter Results * (ABNORMAL) PROTIME-INR (10/16/2020 10:20 AM ROOF FOREMAN) PROTIME 42.0(H) 12.0 - 14.4 Seconds 10/16/2020 12:05 PM ROOF FOREMAN [facility] INR 4.7(H) 0.8 - 1.2 10/16/2020 12:05 PM ROOF FOREMAN [facility] Blood 10/16/2020 10:2 0 AM ROOF FOREMAN 10/16/2020 11:47 AM ROOF FOREMAN us External Provider Mtnv HEMATOLOGY ORDERABLES Fin al Result [facility] CLIA # [id number] [address] [place] [address] documented in this encounter Visit Diagnoses Not on filedocumented in this encounter Care Teams Gray Tender Relationship Specialty Start Date End Date Sharan Gómez Jr., MD [address] [place] [address] PCP - General 08/10/05 documented as of this encounter
--- OUTSIDE RECORDS SUMMARY | 2025-07-27 10:18 | XMS_ITS | Encounter Summary ---
Author Organization [facility] Address [address] [place] [address] Care Team Providers Care Steel Melter Name Role Phone Rico Muñiz MD, Sharan Jaime Primary Care Provider Encounter Details Date Type Department Care Team (Latest Contact Info) Description 04/07/2002 Outpatient Historical [facility] Sharan Gómez Jr., MD [address] [place] [address] ENDOCARDITIS NOS (Primary Dx); DIABETES UNCOMPL ADULT-TYPE II (CMS/HCC); HYPERTENSION NOS; AFTERCARE AED TRAINER ANTICOAG USE Social History Tobacco Use Types Packs/Day Years Used Date Smoking Tobacco: Never Assessed Comments Unknown Sex and Gender Information Value Date Recorded Sex Assigned at Not on file Legal Sex Female 5:42 AM PROSTHETIST Gender Identity Not on file Sexual Orientation Not on file documented as of this encounter Plan of Treatment Not on file documented as of this encounter Visit Diagnoses Diagnosis Endocarditis, valve unspecified, unspecified cause- Primary Type II or unspecified type diabetes mellitus without mention of complication, not stated as uncontrolled Unspecified essential hypertension retirement (current) use of anticoagulants Long-term (current) use of anticoagulants documented in this encounter Care Teams Steel Melter Relationship Specialty Start Date End Date Sharan Gómez Jr., MD [address] [place] [address] PCP - General 08/10/05 documented as of this encounter
--- OUTSIDE RECORDS SUMMARY | 2025-07-27 10:18 | XMS_ITS | Encounter Summary ---
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 Social History Tobacco Use Types Packs/Day Years Used Date Smoking Tobacco: Never Assessed Comments Unknown Sex and Gender Information Value Date Recorded Sex Assigned at Not on file 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
--- OUTSIDE RECORDS SUMMARY | 2025-07-27 10:18 | XMS_ITS | Encounter Summary ---
Author Organization [facility] Address [address] [place] [address] Care Team Providers Care Wastewater Engineer Name Role Phone Rico Muñiz MD, Sharan Jaime Primary Care Provider Encounter Details Date Type Department Care Team (Latest Contact Info) Description 03/03/2002 Outpatient Historical [facility] Sharan Gómez Jr., MD [address] [place] [address] HYPERTENSION NOS (Primary Dx); ENDOCARDITIS NOS; AFTERCARE SKILLED NURSING ANTICOAG USE; FAMILY HX-DIABETES MELLITUS Social History Tobacco Use Types Packs/Day Years Used Date Smoking Tobacco: Never Assessed Comments Unknown Sex and Gender Information Value Date Recorded Sex Assigned at Not on file 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 Gender Identity Not on file Sexual Orientation Not on file documented as of this encounter Plan of Treatment Not on file documented as of this encounter Visit Diagnoses Diagnosis Unspecified essential hypertension- Primary Endocarditis, valve unspecified, unspecified cause snf (current) use of anticoagulants Long-term (current) use of anticoagulants Family history of diabetes mellitus documented in this encounter Care Teams Wastewater Engineer Relationship Specialty Start Date End Date Sharan Gómez Jr., MD [address] [place] [address] PCP - General 08/10/05 documented as of this encounter
[2025-07-27 10:24] VITALS: BP 123/78; PULSE 73; RESP 17; TEMP 36.6; O2SAT 97; BMI 27.6
--- NOTE | 2025-07-27 10:56 | XR_ITS ---
WS: [id number] XR chest 1V portable [id number] REASON FOR EXAM: Chest pain FINDINGS: The chest is unchanged compared to 07/07/2025. There have been several chest x- rays between 06/25/2025 and the current examination which all appear similar. Previous sternotomy. Significant tortuosity and moderate ectasia of the thoracic aorta with calcification of the aortic arch. There is mild cardiomegaly. Previous CT scans have demonstrated dense calcification of the mitral valve with significant dilatation of the left atrium. Mild central pulmonary venous congestion. Coarse reticular and linear lung opacities predominating in the left lower lung field. No definite acute pulmonary parenchymal or pleural abnormality. Elevation of the left hemidiaphragm with blunting of the left costophrenic angle. XR/XR chest 1V portable [id number] IMPRESSION: Stable abnormal chest. No definite acute abnormality.
[2025-07-27 11:17] LABS: Hematocrit 35.5 % (36-47); Hemoglobin 11.70 g/dL (11.27-16.99); Mean Corpuscular HGB Conc 33.0 g/dL (30-55); Mean Corpuscular Hemoglobin 36.0 pg (27-33); Mean Corpuscular Volume 109.2 fl (85-98); Nucleated Red Blood Cells % 0 %; Platelet Count 199 10^3/cmm (157-399); Red Blood Count 3.25 10^6/uL (3.85-5.65); White Blood Count 5.47 10^3/uL (3.29-11.43)
[2025-07-27 11:42] LABS: Lactic Sepsis W/Reflex 0.6 mmol/L (0.5-2.2)
[2025-07-27 11:48] LABS: Troponin(5th) Baseline 14 ng/L (0-10)
--- NOTE | 2025-07-27 11:51 | ECG_ITS ---
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
--- NOTE | 2025-07-27 11:56 | W.ED.SOB ---
HPI - SOB/Dyspnea General: Chief Complaint: Shortness of Breath/Dyspnea Stated Complaint: buring in chest, sob,R arm numbness R leg swelling Time Seen by Provider: 07/27/25 11:30 History of Present Illness: HPI Narrative: 74-year-old female presents emergency room complaining of burning in her chest shortness of breath she also states she has numbness in her leg and swelling. She has chronically had complaints of chest discomfort. She has had multiple caths done. Most recent 1 done in late May. According to the report patient has severe coronary artery disease with three-vessel disease. They recommended continued medical management. Associated symptoms: Reports chest pain; Deny abdominal pain, fever(s) or orthopnea Related Data Home Medications ?Medication ?Instructions ?Recorded ?Confirmed nitroglycerin 0.4 mg sublingual 0.4 mg sublingual Q5M PRN chest 11/07/19 07/27/25 tablet (Nitrostat) pains levothyroxine 75 mcg tablet 75 mcg PO DAILY@0700 hypothyroidism 11/11/20 07/27/25 (Euthyrox) tramadol 50 mg tablet 50 mg PO Q6H PRN Pain 11/11/20 07/27/25 potassium chloride 20 mEq 20 meq PO BID@0700,1900 12/22/20 07/27/25 tablet,extended release meclizine 12.5 mg tablet 12.5 mg PO Q6H PRN nausea and 04/19/21 07/27/25 vomiting bismuth subsalicylate 525 mg/15 mL 525 mg PO Q8H PRN 08/15/21 07/27/25 oral suspension (Pepto-Bismol Max Nausea/vomiting/diarrhea St) mirtazapine 15 mg tablet 15 mg PO QAM 05/21/24 07/27/25 pantoprazole 40 mg tablet,delayed 40 mg PO QAM 12/05/24 07/27/25 release amiodarone 200 mg tablet 200 mg PO PRN PRN if blood 01/31/25 07/27/25 pressure is over 120 cetirizine 10 mg tablet (Zyrtec) 10 mg PO PRN PRN Allergy Symptoms 01/31/25 07/27/25 hydroxyzine HCl 25 mg tablet 25 mg PO TID PRN Anxiety 01/31/25 07/27/25 ipratropium bromide 42 mcg (0.06 2 spray intranasal TID PRN 01/31/25 07/27/25 %) nasal spray ALLERGIES magnesium hydroxide 400 mg/5 mL 30 ml PO PRN PRN bowel movemaent 01/31/25 07/27/25 oral suspension (Milk of Magnesia) polyethylene glycol 3350 17 17 g PO QAM Constipation 01/31/25 07/27/25 gram/dose oral powder (Miralax) warfarin 2.5 mg tablet See Rx Instructions .Route .COMPLEX 01/31/25 07/27/25 warfarin 3 mg tablet See Rx Instructions .Route .COMPLEX 05/27/25 07/27/25 folic acid 1 mg tablet 1 mg PO DAILY 06/22/25 07/27/25 acetaminophen 500 mg tablet 1,000 mg PO Q8H 06/25/25 07/27/25 fubed-ujmwkbqq-zfg-turp-pet 1 ea topical PRN PRN thick toe 06/25/25 07/27/25 topical ointment nails cyanocobalamin (vitamin B-12) 2,000 mcg sublingual DAILY 06/25/25 07/27/25 1,000 mcg sublingual tablet methyl salicylate 30 %-menthol 10 1 applic topical TID PRN sore 06/25/25 07/27/25 % topical cream (Icy Hot) muscles spironolactone 25 mg tablet 25 mg PO QAM 06/25/25 07/27/25 aspirin 81 mg tablet,delayed 81 mg PO DAILY 07/27/25 07/27/25 release ondansetron 4 mg disintegrating 4 mg PO Q6H PRN Nausea And Vomiting 07/27/25 07/27/25 tablet Previous Rx's ?Medication ?Instructions ?Recorded furosemide 40 mg tablet 60 mg (1.5 x 40 mg) PO DAILY@0700 05/18/23 edema #135 tabs metoprolol tartrate 100 mg tablet 100 mg PO BID #180 tabs 12/05/24 galantamine 8 mg 24 hr 8 mg PO QAM 90 days #90 caps 05/06/25 capsule,extended release memantine 5 mg tablet 5 mg PO BID #180 tabs 05/06/25 atorvastatin 40 mg tablet 40 mg PO BEDTIME #30 tabs 06/29/25 Allergies Allergy/AdvReac Type Severity Reaction Status Date / Time diltiazem (From Cardizem) Allergy Unknown Verified 06/23/25 10:03 morphine Allergy Unknown Verified 06/23/25 10:03 Review of Systems Const: Denies: fever(s) or chills Card: Reports: chest pain; Denies: dyspnea on exertion or orthopnea Resp: Reports: non-productive cough; Denies: dyspnea GI: Denies: abdominal pain : Denies: dysuria, urinary frequency or urinary urgency Musc: Denies: neck pain or back pain Skin/Breast: Denies: rash PFSH ED PFSH: Medical History Chronic anxiety History of iron deficiency anemia Alzheimer disease CKD (chronic kidney disease) stage 2, GFR 60-89 ml/min Hypertension CAD (coronary artery disease) CHF (congestive heart failure) Insomnia Hypothyroid Hyperlipidemia Chronic neck and back pain GERD (gastroesophageal reflux disease) Chronic atrial fibrillation Chronic constipation Surgical History History of heart artery stent Coronary angioplasty/stent placement in 2011 and in 2012 Hx of colonoscopy 2018 H/O esophagogastroduodenoscopy 2011, 2016, and 2018 S/P cholecystectomy H/O section Mitral valve replaced mechanical valve replacement 1994 Family History Other CAD (coronary artery disease) Diabetes Social History Smoking and tobacco/nicotine status: never used tobacco/nicotine Alcohol intake: never Substance/Drug Use: never Housing: Assisted Living Facility Marital status: Single Number of children: 1 Current occupational status: disabled Current gender identity: Female Female Reproductive History: Para: 1 Physical Exam Const: COMMON NORMALS: no acute distress GENERAL APPEARANCE: cooperative and comfortable ORIENTATION/CONSCIOUSNESS: Yes awake, Yes oriented to person, Yes oriented to place and Yes oriented to time HENMT: COMMON NORMALS: normocephalic, atraumatic and hearing grossly normal bilaterally HEAD & SCALP: normocephalic and atraumatic Resp: COMMON NORMALS: normal respiratory effort, No retractions, No use of accessory muscles and clear to auscultation bilaterally AUSCULTATION: clear to auscultation bilaterally Cardio: COMMON NORMALS: regular rate, regular rhythm and No murmurs present (Cardio) RATE: regular rate RHYTHM: regular rhythm GI: COMMON NORMALS: Soft to palpation and No hepatosplenomegaly present AUSCULTATION: Yes normoactive bowel sounds PALPATION: Yes Soft to palpation, No Tenderness to palpation present (GI), No Guarding due to palpation present (GI) and Yes No hepatosplenomegaly present Extremity: COMMON NORMALS: normal to inspection, capillary refill normal, no clubbing, cyanosis or edema, no calf tenderness and no pedal edema Neuro: SENSORIUM/ORIENTATION: Yes oriented to person, Yes oriented to place and Yes oriented to time Skin: COMMON NORMALS: no rashes or lesions noted GENERAL SKIN EXAM: no rashes or lesions noted Course Vital Signs: Vital signs: Vital Signs Temperature 97.8 F 07/27/25 10:24 Pulse Rate 87 07/27/25 15:30 Respiratory Rate 17 07/27/25 10:24 Blood Pressure 146/96 07/27/25 15:30 Pulse Oximetry 91 07/27/25 15:30 Oxygen Delivery Me thod Room Air 07/27/25 10:24 Clincial Decision Support The following clinical decision support tools were used to aid in care of the patient HEART Score -> History: Slightly Suspicous, EKG: Non-specific Changes, Age: 65 or more yrs, Risk Factors: >/=3 Risk Factors, Troponin: Baseline Trop <16 ng/L. Resulting HEART Score: 5. MDM - SOB/Dyspnea Medical Decision Making No further symptoms EKG is normal troponin is not trending elevated. Will discharge patient home and have her follow-up with cardiology. No significant EKG changes troponin is trending negative. Patient has a heart score of 4 however she has had extensive evaluation before. She is not having any symptoms now will discharge home and have her follow-up with cardiac clinic as an outpatient Medical Records I reviewed the patient's medical records. Lab Data I reviewed the patient's lab results. 07/27/25 11:10 07/27/25 11:10 Labs/Radiology: Radiology Impressions Chest X-Ray 07/27/25 10:56 IMPRESSION: Stable abnormal chest. No definite acute abnormality. Laboratory Results WBC 5.47 10^3/uL (3.29-11.43) 07/27/25 11:10 RBC 3.25 10^6/uL (3.85-5.65) L 07/27/25 11:10 Hgb 11.70 g/dL (11.27-16.99) 07/27/25 11:10 Hct 35.5 % (36-47) L 07/27/25 11:10 MCV 109.2 fl (85-98) H 07/27/25 11:10 MCH 36.0 pg (27-33) H 07/27/25 11:10 MCHC 33.0 g/dL (30-55) 07/27/25 11:10 RDW 13.2 % (12.1-15.1) 07/27/25 11:10 Plt Count 199 10^3/cmm (157-399) 07/27/25 11:10 MPV 9.1 fL (7.4-10.4) 07/27/25 11:10 Neut % (Auto) 59.4 % 07/27/25 11:10 Lymph % (Auto) 23.2 % 07/27/25 11:10 [place] % (Auto) 10.2 % 07/27/25 11:10 Eos % (Auto) 5.5 % 07/27/25 11:10 Baso % (Auto) 1.5 % 07/27/25 11:10 Neut # (Auto) 3.25 10^3/uL (1.8-7.7) 07/27/25 11:10 Lymph # (Auto) 1.3 10^3/uL (0.8-4.8) 07/27/25 11:10 [place] # (Auto) 0.6 10^3/uL (0.2-0.9) 07/27/25 11:10 Eos # (Auto) 0.3 10^3/uL (0.0-0.8) 07/27/25 11:10 Baso # (Auto) 0.1 10^3/uL (0.0-0.1) 07/27/25 11:10 Nucleated RBC % (auto) 0 % 07/27/25 11:10 Nucleated RBCs # 0.0 /100WBC 07/27/25 11:10 Sodium 141 mmol/L (136-145) 07/27/25 11:10 Potassium 4.8 mmol/L (3.5-5.1) 07/27/25 11:10 Chloride 105 mmol/L (98-107) 07/27/25 11:10 Carbon Dioxide 25 mmol/L (22-29) 07/27/25 11:10 Anion Gap 15.8 (5-19) 07/27/25 11:10 BUN 19 mg/dL (8-23) 07/27/25 11:10 Creatinine 0.9 mg/dL (0.5-0.9) 07/27/25 11:10 GFR Calculation Not Reportable 07/27/25 11:10 Glucose 111 mg/dL (65-115) 07/27/25 11:10 Calculated Osmolality 295 mOsm/kg (285-295) 07/27/25 11:10 Lactic Acid 0.6 mmol/L (0.5-2.2) 07/27/25 11:10 Calcium 10.5 mg/dL (8.5-10.5) 07/27/25 11:10 Total Bilirubin 0.9 mg/dL (0.15-1.2) 07/27/25 11:10 AST 21 U/L (0-32) 07/27/25 11:10 ALT 13 U/L (0-33) 07/27/25 11:10 Alkaline Phosphatase 92 U/L (35-105) 07/27/25 11:10 Troponin T Baseline 14 ng/L (0-10) H 07/27/25 11:10 Troponin T 120 Minute 15.16 ng/L (0-10) H 07/27/25 13:10 Delta Troponin T 1.16 ABS# (0-10) 07/27/25 13:10 NT-Pro-B Natriuret Pep 1385 pg/mL (0-450) H 07/27/25 11:10 Total Protein 7.0 g/dL (6.6-8.7) 07/27/25 11:10 Albumin 4.5 g/dL (3.5-5.2) 07/27/25 11:10 Globulin 2.5 g/dL (1.3-4.6) 07/27/25 11:10 Influenza A (PCR) Negative (Negative) 07/27/25 12:15 Influenza Type B (PCR) Negative (Negative) 07/27/25 12:15 RSV (PCR) Negative (Negative) 07/27/25 12:15 SARS-CoV-2 (PCR) Negative (Negative) 07/27/25 12:15 All radiology interpretation(s) finalized by discharge EKG Data EKG 1: Interpretation: EKG 07/27/2025 1151 atrial fibrillation rate of 87 QTc of 415. Compared to EKG 07/07/2025 EKG 2: Interpretation: EKG 07/27/2025 1253 atrial fibrillation rate of 82 QTc 493 compared EKG done earlier same day no significant change no acute ST changes or T wave inversions known Discharge Plan Discharge Patient Disposition: Home Clinical Impression: Atypical chest pain, Alzheimer disease Condition: Stable Prescriptions: No Action nitroglycerin [Nitrostat] 0.4 mg tablet, sublingual 0.4 mg SUBLINGUAL Q5M PRN (Reason: chest pains) Pepto-Bismol Max St 525 mg/15 mL suspension 525 mg PO Q8H PRN (Reason: Nausea/vomiting/diarrhea) Rx Instructions: do not exceed 8 doses in a 24 hour period meclizine 12.5 mg tablet 12.5 mg PO Q6H PRN (Reason: nausea and vomiting ) potassium chloride 20 mEq tablet extended release 20 meq PO BID@0700,1900 mirtazapine 15 mg tablet 15 mg PO QAM metoprolol tartrate 100 mg tablet 100 mg PO BID Qty: 180 3RF folic acid 1 mg tablet 1 mg PO DAILY furosemide 40 mg tablet 60 mg PO DAILY@0700 Qty: 135 0RF galantamine 8 mg capsule,ext rel. pellets 24 hr 8 mg PO QAM 90 Days Qty: 90 3RF memantine 5 mg tablet 5 mg PO BID Qty: 180 3RF tramadol 50 mg Tablet 50 mg PO Q6H PRN (Reason: Pain) levothyroxine [Euthyrox] 75 mcg tablet 75 mcg PO DAILY@0700 pantoprazole 40 mg tablet,delayed release (DR/EC) 40 mg PO QAM cetirizine [Zyrtec] 10 mg Tablet 10 mg PO PRN PRN (Reason: Allergy Symptoms) warfarin 2.5 mg tablet See Rx Instructions .ROUTE .COMPLEX Rx Instructions: Take 1 tablet by mouth on Sunday , Sunday , , Sunday , and Sunday hydroxyzine HCl 25 mg tablet 25 mg PO TID PRN (Reason: Anxiety) polyethylene glycol 3350 [Miralax] 17 gram/dose Powder 17 g PO QAM ipratropium bromide 42 mcg (0.06 %) spray,non-aerosol 2 spray INTRANASAL TID PRN (Reason: ALLERGIES) magnesium hydroxide [Milk of Magnesia] 400 mg/5 mL Suspension 30 ml PO PRN PRN (Reason: bowel movemaent ) amiodarone 200 mg tablet 200 mg PO PRN PRN (Reason: if blood pressure is over 120) cyanocobalamin (vitamin B-12) 1,000 mcg Tablet, Sublingual 2,000 mcg SUBLINGUAL DAILY cpyjt-ojrpoqlu-quh-turp-pet Ointment 1 ea TOPICAL PRN PRN (Reason: thick toe nails) acetaminophen 500 mg Tablet 1,000 mg PO Q8H Icy Hot 30-10 % Cream 1 applic TOPICAL TID PRN (Reason: sore muscles) spironolactone 25 mg tablet 25 mg PO QAM atorvastatin 40 mg Tablet 40 mg PO BEDTIME Qty: 30 0RF aspirin [Aspir-81] 81 mg Tablet,Delayed Release (Dr/Ec) 81 mg PO DAILY ondansetron 4 mg tablet,disintegrating 4 mg PO Q6H PRN (Reason: Nausea And Vomiting) warfarin 3 mg tablet See Rx Instructions .ROUTE .COMPLEX Rx Instructions: Take 1 tablet by mouth on Sunday and Sunday Discharge Orders: Discharge ED (Routine); Ordered 07/27/25 Ordered By: Josse Ferrer Referrals: Danny Marmolejo MD [Primary Care Provider, Family Practice] Discharge Diet: Usual diet Discharge Activity: Resume usual activity Patient Instructions: Opioid Safety, Pain Management, Patient Portal & Radha Instructions Activity Restrictions/Additional Instructions: Thank you for choosing [facility] for your healthcare needs today. It is very important that you follow up as instructed or that you return to the Emergency Department should you have concerns or if your condition changes or worsens in any way. Emergency department visits are focused on emergent conditions, in some cases you may require further evaluation on an outpatient basis. You were seen with complaints of chest discomfort your cardiac enzymes and EKG were normal. Recommend you follow-up with your primary care doctor within the next week. (Please note that included in your discharge packet is information concerning opioid safety and pain management. This information is given to all patients were discharged from the ER regardless of their discharge diagnosis or the medicines they usually take or are prescribed.) Print Language: Faroese Coding Level of Care Code ED String Top Sealer for Marthag Kristine
[2025-07-27 11:59] LABS: Alanine Aminotransferase 13 U/L (0-33); Albumin Level 4.5 g/dL (3.5-5.2); Alkaline Phosphatase 92 U/L (35-105); Anion Gap 15.8 (5-19); Aspartate Amino Transferase 21 U/L (0-32); Blood Urea Nitrogen 19 mg/dL (8-23); Calcium 10.5 mg/dL (8.5-10.5); Carbon Dioxide 25 mmol/L (22-29); Chloride 105 mmol/L (98-107); Creatinine Clr Calc Pharmacy 48.9890; Globulin 2.5 g/dL (1.3-4.6); Glucose 111 mg/dL (65-115); NT Pro B Type Natriuretic Pept 1385 pg/mL (0-450); Osmolality Calculated 295 mOsm/kg (285-295); Potassium 4.8 mmol/L (3.5-5.1); Sodium 141 mmol/L (136-145); Total Protein 7.0 g/dL (6.6-8.7)
[2025-07-27 12:26] VITALS: BP 102/57; PULSE 57; O2SAT 94
--- NOTE | 2025-07-27 12:56 | ECG_ITS ---
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
[2025-07-27 13:00] VITALS: BP 120/73; PULSE 78; O2SAT 97
[2025-07-27 13:01] LABS: Respiratory Syncytial Virus Ce NEGATIVE (Negative); SARS-CoV-2 PCR NEGATIVE (Negative)
[2025-07-27 13:30] VITALS: BP 116/85; PULSE 67; O2SAT 94
[2025-07-27 14:00] VITALS: BP 115/77; PULSE 78; O2SAT 92
[2025-07-27 14:07] LABS: Troponin 5 2HR 15.16 ng/L (0-10); Troponin 5 2HR Delta 1.16 ABS# (0-10)
[2025-07-27 15:30] VITALS: BP 146/96; PULSE 87; O2SAT 91
== END 2025-07-27 15:34 | disposition home or self-care (01) ==
PROVIDERS: Emergency Medicine; Emergency Provider Family Medicine; PCP Family Medicine
DX: R07.89 Other chest pain (principal); G30.9 Alzheimer's disease, unspecified; F02.80 Dementia in other diseases classified elsewhere, unspecified severity, without behavioral disturbance, psychotic disturbance, mood disturbance, and anxiety; Z11.52 Encounter for screening for COVID-19; Z79.01 Long term (current) use of anticoagulants; Z79.82 Long term (current) use of aspirin; I25.10 Atherosclerotic heart disease of native coronary artery without angina pectoris; E78.5 Hyperlipidemia, unspecified; I13.0 Hypertensive heart and chronic kidney disease with heart failure and stage 1 through stage 4 chronic kidney disease, or unspecified chronic kidney disease; N18.2 Chronic kidney disease, stage 2 (mild); I50.9 Heart failure, unspecified
CPT/HCPCS: 36415; 71045; 80053; 83605; 83880; 84484; 85025; 87040; 87637; 93005; 99285

== ENCOUNTER 2025-08-01 23:08 | Emergency (ER) | payer MEDICARE, MEDICAID, SELFPAY ==
[2025-08-01 23:13] VITALS: BP 134/86; PULSE 83; RESP 16; TEMP 36.6; O2SAT 93; BMI 28.0
--- OUTSIDE RECORDS SUMMARY | 2025-08-01 23:16 | XMS_ITS | Encounter Summary ---
Author Organization [facility] Address [address] [place] [address] Care Team Providers Care Crystal Growing Technician Name Role Phone Rico Muñiz MD, Sharan Jaime Primary Care Provider Encounter Details Date Type Department Care Team (Latest Contact Info) Description 11/05/[address] 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
--- OUTSIDE RECORDS SUMMARY | 2025-08-01 23:16 | XMS_ITS | Data Portability ---
Author Organization DAI Kenneth Haas [facility], [facility] Address [address] [address] Care Team Providers Care Broke Worker Name Role Phone LYN MARMOLEJO Primary Care Provider [phone] Assessment No assessment recorded. Plan of Treatment Reminders Order Date Submit Date Provider Last Modified By Organization Details Last Modified Time Details Appointments None recorded. Lab PT/INR 2024 025 [facility] ([facility]), [address] [place] [address], [phone], 11:49:49 PT/INR 2024 025 [facility] ([facility]), [address] [place] [address], [address], 11:41:21 PT/INR 2024 025 [facility] ([facility]), [address] [place] [address], [address], 12:57:11 urinalysis , complete 2024 025 [email or web address], [address] [place] [address], [address], 15:25:12 culture, urine 2024 025 [place] [employer] [facility], [address] [place] [address] [address], [address] [place], [address], 02:51:13 PT/INR 2024 025 QU[facility]), [address] [place], [address], 13:51:09 Referral None recorded. Procedures None recorded. Surgeries None recorded. Imaging None recorded. Medication Orders None recorded. Patient TargetsNo targets recorded. Patient InstructionsNo instructions recorded. Reason for Referral None Reported. Results Created Date Observation Date Name Description Value Unit Range Abnormal Flag Note LastModifiedBy Organization Detail LastModifiedTime 06/11/2006/11/2025 CMP (FEMA LE) glucose 88.0 mg/dL 60.0-9 9.0 Not Available [facility] [address] [address], [place], [address], 06/11/2025 13:16:16 06/11/2006/11/2025 CMP (FEMA LE) BUN (blood urea nitrogen) 25.0 mg/dL 10.0-2 6.0 Not Available [facility] [address] [address], [place], [address], 06/11/2025 13:16:16 06/11/2006/11/2025 CMP (FEMA LE) creatinine (serum) 1.1 mg/dL 0.4-1. 5 Not Available [facility] [address], [place], [address], 06/11/2025 13:16:16 06/11/2006/11/2025 CMP (FEMA LE) BUN/creatini ne ratio 22.73 ratio Not Available [facility] [address], [place], [address], 06/11/2025 13:16:16 06/11/20 25 06/11/2025 CMP (FEMA LE) eGFR calculated 51.5 Not Available [facility] [address] [facility], [place], [address], 06/11/2025 13:16:16 06/11/2006/11/2025 CMP (FEMA LE) total protein 7.7 g/dL 6.0-8. 5 Not Available [facility] [address] [facility], [place], [address], 06/11/2025 13:16:16 06/11/2006/11/2025 CMP (FEMA LE) total bilirubin 0.9 mg/dL 0.2-1. 3 Not Available [facility] [address] [facility], [place], [address], 06/11/2025 13:16:16 06/11/2006/11/2025 CMP (FEMA LE) albumin 4.6 g/dL 3.5-5. 5 Not Available [facility] [address] [facility], [place], [address], 06/11/2025 13:16:16 06/11/2006/11/2025 CMP (FEMA LE) globulin 3.1 calc Not Available [facility] [address] [facility], [place], [address], 06/11/2025 13:16:16 06/11/2006/11/2025 CMP (FEMA LE) AST (SGOT) 32.0 U/L 0.0-46 .0 Not Available [facility] [address] [facility], [place], [address], 06/11/2025 13:16:16 06/11/2006/11/2025 CMP (FEMA LE) altv (SGPT) 15.0 U/L 13.0-6 9.0 normal Not Available [facility] [address] [facility], [place], [address], 06/11/2025 13:16:16 06/11/20 25 06/11/2025 CMP (FEMA LE) A/G ratio 1.5 ratio Not Available [facility] [address] [facility], [place], [address], 06/11/2025 13:16:16 06/11/20 25 06/11/2025 CMP (FEMA LE) ALP phos 81.0 U/L 30.0-1 40.0 normal Not Available [facility] [address] [facility], [place], [address], 06/11/2025 13:16:16 06/11/20 25 06/11/2025 CMP (FEMA LE) calcium 10.4 mg/dL 8.4-10 .5 Not Available [facility] [address] [facility], [place], [address], 06/11/2025 13:16:16 06/11/20 25 06/11/2025 CMP (FEMA LE) sodium 142.0 mmol/ L 136.0- 145.0 Not Available [facility] [address] [facility], [place], [address], 06/11/2025 13:16:16 06/11/20 25 06/11/2025 CMP (FEMA LE) potassium 4.7 mmol/ L 3.5-5. 1 Not Available [facility] [address] [facility], [place], [address], 06/11/2025 13:16:16 06/11/20 25 06/11/2025 CMP (FEMA LE) chloride 106.0 mmol/ L 98.0-1 10.0 normal Not Available [facility] [address] [facility], [place], [address], 06/11/2025 13:16:16 06/11/20 25 06/11/2025 CMP (FEMA LE) C02 27.0 mmol/ L 22.0-3 1.0 Not Available [facility] [address] [facility], [place], [address], 06/11/2025 13:16:16 06/11/20 25 06/11/2025 CMP (FEMA LE) anion gap 9.0 calc Not Available [facility] [address] [facility], [place], [address], 06/11/2025 13:16:16 06/11/2006/11/2025 CMP (FEMA LE) osmolality 296.7 calc Not Available [facility] [address] [facility], [place], [address], 06/11/2025 13:16:16 06/11/2006/12/2025 PTH, INTAC T (ICMA ) AND IONIZ ED CALCI UM parathyroid hormone, intact 146 pg/mL 16-77 high Inter preti ve Guide Intac t PTH Calci um ----- ----- ----- --- ----- ----- ----- -- Joie l Parat hyroi d Joie l Joie l Hypop juan j yroid ism Low or Low Joie l Low Hyper parat hyroi dism Prima ry Joie l or High High Secon stewart High Joie l or Low Terti nhung High High Non-P juan j yroid Hyper calce micah Low or Low Joie l High Not Available [employer] [facility] [address] [place], [address], 06/12/2025 15:27:52 06/11/2006/12/2025 PTH, INTAC T (ICMA ) AND IONIZ ED CALCI UM calcium 10.1 mg/dL 8.6-10 .4 normal Not Available [employer] [facility] [address] [place], [address], 06/12/2025 15:27:52 06/11/20 25 06/12/2025 PTH, INTAC T (ICMA ) AND IONIZ ED CALCI UM calcium, ionized 5.5 mg/dL 4.7-5. 5 normal Not Available [facility] [address] [place], [address], 06/12/2025 15:27:52 06/11/20 25 06/12/2025 VITAM IN D,25- OH,TO DARRELL,I A vitamin D,25-oh,tota l,ia 23 NG/mL 30-100 low Vitam in D Statu s 25-OH Vitam in D: Defic iency : <20 ng/mL Insuf ficie ncy: 20 - 29 ng/mL Optim al: > or = 30 ng/mL For 25-OH Vitam in D testi ng on patie nts on D2-ojeda pplem entat ion and patie nts for whom quant itati on of D2 and D3 fract ions is requi red, the [facility] eD(TM ) 25-OH VIT D, (D2,D 3), LC/MS /MS is recom gagan d: order code 97830 (vargas ents >2yrs ). See Note 1 Note 1 For addit ional infor surya mclean refer to http: //blayne guidry.Vikash stDia gnost ics.c om/fa q/FAQ 199 (This link is being provi ded for infor sarika stroud/ connor smart purpo ses only. ) Not Available [facility] [address] [address], [place], [address], 06/12/2025 15:27:54 06/24/20 25 06/24/2025 PT/IN R Protime 40.9 Not Available [facility] ([facility]) [address] [place], [address], 06/24/2025 13:13:54 06/24/20 25 06/24/2025 PT/IN R INR 3.4 Not Available [facility] ([facility]) [address] [place], [address], 06/24/2025 13:13:54 07/02/20 25 07/02/2025 PT/IN R Protime 42.3 Not Available [facility] ([facility]) [address] [place], [address], 07/01/2025 10:25:07 07/02/20 25 07/02/2025 PT/IN R INR 3.5 Not Available [facility] ([facility]) [address] [place], [address], 07/01/2025 10:25:07 07/06/20 25 07/06/2025 PT/IN R Protime 39.5 Not Available [facility] ([facility]) [address] [place], [address], 07/06/2025 11:23:26 07/06/20 25 07/06/2025 PT/IN R INR 3.3 Not Available [facility] ([facility]) [address] [place], [address], 07/06/2025 11:23:26 07/09/20 25 07/09/2025 PT/IN R Protime 34.6 Not Available [facility] ([facility]) [address] [place], [address], 07/09/2025 13:44:17 07/09/20 25 07/09/2025 PT/IN R INR 2.9 Not Available [facility] ([facility]) [address] [place], [address], 07/09/2025 13:44:17 07/14/20 25 07/14/2025 URINA LYSIS WITH MICRO color YELLOW Not Available [facility] [address] [facility] [address], [place], [address], 07/14/2025 14:52:32 07/14/2007/14/2025 URINA LYSIS WITH MICRO clarity CLEAR Not Available [facility] [address], [place], [address], 07/14/2025 14:52:32 07/14/20 25 07/14/2025 URINA LYSIS WITH MICRO glu NEGATI VE Not Available [facility] [address], [place], [address], 07/14/2025 14:52:32 07/14/2007/14/2025 URINA LYSIS WITH MICRO bili NEGATI VE Not Available [facility] [address], [place], [address], 07/14/2025 14:52:32 07/14/20 25 07/14/2025 URINA LYSIS WITH MICRO ket NEGATI VE Not Available [facility] [address], [place], [address], 07/14/2025 14:52:32 07/14/20 25 07/14/2025 URINA LYSIS WITH MICRO S.g 1.010 1.005- 1.025 Not Available [facility] [address], [place], [address], 07/14/2025 14:52:32 07/14/20 25 07/14/2025 URINA LYSIS WITH MICRO pH 5.0 5.0-7. 0 Not Available [facility] [address], [place], [address], 07/14/2025 14:52:32 07/14/20 25 07/14/2025 URINA LYSIS WITH MICRO pro NEGATI VE Not Available [facility] [address], [place], [address], 07/14/2025 14:52:32 07/14/20 25 07/14/2025 URINA LYSIS WITH MICRO uro 0.2 E.U./D L Not Available [facility] [address], [place], [address], 07/14/2025 14:52:32 07/14/20 25 07/14/2025 URINA LYSIS WITH MICRO nit NEGATI VE Not Available [facility] [address], [place], [address], 07/14/2025 14:52:32 07/14/20 25 07/14/2025 URINA LYSIS WITH MICRO blo NEGATI VE Not Available [facility] [address], [place], [address], 07/14/2025 14:52:32 07/14/20 25 07/14/2025 URINA LYSIS WITH MICRO jose elias NEGATI VE Not Available [facility] [address], [place], [address], 07/14/2025 14:52:32 07/14/20 25 07/14/2025 URINA LYSIS WITH MICRO WBC 0-1 abnormal Not Available [facility] [address], [place], [address], 07/14/2025 14:52:32 07/14/20 25 07/14/2025 URINA LYSIS WITH MICRO RBC NEGATI VE Not Available [facility] [address], [place], [address], 07/14/2025 14:52:32 07/14/20 25 07/14/2025 URINA LYSIS WITH MICRO epi cells 1-2 abnormal Not Available [facility] [address] [facility] 1, [place], [address], 07/14/2025 14:52:32 07/14/2007/14/2025 URINA LYSIS WITH MICRO bacteria 1-2 HYALIN E CAST abnormal Not Available [facility] [address] [facility] [address], [place], [address], 07/14/2025 14:52:32 07/14/20 25 07/14/2025 URINA LYSIS WITH MICRO other NEG Not Available [facility] [address] [facility] [address], [place], [address], 07/14/2025 14:52:32 07/14/2007/16/2025 CULTU RE, URINE , ROUTI NE culture, urine, routine SEE NOTE CULTU RE, URINE , ROUTI NE Micro Numbe r: [id number] Test Statu s: Final Speci men Sourc e: Urine Speci men Quali ty: Adequ ate Resul t: No Growt h Not Available [address] [address] [place], [address], 07/16/2025 02:51:13 07/17/2007/17/2025 PT/IN R Protime 34.4 Not Available [facility]) [address] [place], [address], 07/16/2025 12:07:15 07/17/2007/17/2025 PT/IN R INR 2.9 Not Available [facility] ([facility]) [address] [place], [address], 07/16/2025 12:07:15 07/23/2007/23/2025 PT/IN R Protime 47.0 Not Available [facility] ([facility]) [address] [place], [address], 07/23/2025 11:36:06 07/23/20 07/23/2025 PT/IN R INR 3.9 Not Available [facility] ([facility]) [address] [place], [address], 07/23/2025 11:36:06 07/30/2007/30/2025 PT/IN R Protime 30.2 Not Available [facility] ([facility]) [address] [place], [address], 07/30/2025 11:33:15 07/30/2007/30/2025 PT/IN R INR 2.5 Not Available [facility] ([facility]) [address] [place], [address], 07/30/2025 11:33:15 Result Notes None recorded. Problems Name Problem SNOMED Code Status Onset Date Resolution Date Notes Provider Name and Address Organization Details Recorded Time Depressi ve disorder 52040814 Completed 202010/14/2021 Depressi on - Status is Inactive ; 10/14/20 11:08AM by Maryellen Marmolejo PA-C, Annotati on/Adden dum; Promoted ; acuity set as *; FELISHA hamilton, [facility] 5 07:56:57 Herpes zoster 4017459 Completed 202201/02/2025 SHINGLES FELISHA hamilton, [facility] 5 07:56:03 Dysthymi a 48224286 Active 2022 DEPRESSI ON WITH ANXIETY FELISHA hamilton, [facility] 5 07:55:28 Benign essentia l hyperten jovanni 8968480 Active 2022 FELISHA hamilton, [facility], LJosue[facility]ueC[facility] 5 07:55:28 Gastroes ophageal reflux disease 774842058 Active 2022 FELISHA hamilton, [facility] 5 07:55:28 Fracture of upper end of humerus 668328807 Completed 202201/02/2025 CLOSED FRACTURE OF PROXIMAL END OF RIGHT HUMERUS, SEQUELA FELISHAJAMIE DESIR alfonso, [facility] 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 5 07:56:22 Atrial fibrilla tion 03495636 Active 2022 FELISHA hamilton, [facility] 3 14:45:05 Coronary atherosc lerosis 953782048 Active 2022 bare metal stents to circ and LAD 2011 FELISHA hamilton, [facility] 3 14:46:30 Iron deficien cy anemia 20010711 Active 2022 FELISHA hamilton, [facility] 5 07:55:28 Hypothyr oidism 67346820 [facility] 2022 [facility] 14:45:59 Anxiety 22233126 Active 2022 FELISHA DESIR null, [facility] 3 14:46:54 Viral hepatiti s C 97553210 Active 2022 FELISHA hamilton, [facility] 5 07:55:28 Moderate recurren t major depressi on 91137243 Active 2023 FELISHA hamilton, [facility] 5 07:55:28 Need for personal care assistan [id number] 338372 Active 2023 FELISHA DESIR null, [facility] 5 07:55:28 Frail elderly 760950817 Active 2023 FELISHA DESIR null, [facility] 5 07:55:28 Seasonal allergic rhinitis 597468934 Active 2023 FELISHA DESIR null, [facility] 5 07:55:28 Chronic pain 26785115 Active 2023 FELISHA DESIR null, [facility] 5 07:55:28 Dementia 92611875 Active 2023 FELISHA DESIR null, [facility] 5 07:55:28 Constipa tion 94186286 Active 2023 FELISHA DESIR null, [facility] 5 07:55:44 Hyperlip idemia 77071353 Active 2024 FELISHA DESIR null, [facility] 5 07:59:38 Occult blood detected in feces 25904367 Active 2024 FELISHA DESIR null, [facility] 5 09:13:35 Mean corpuscu lar volume above referenc e range 668769726 Active 2024 FELISHA DESIR null, [facility] 5 09:14:07 Hypercal cemia 27699452 Active 2024 FELISHA DESIR null, [facility] 5 10:07:49 Vitamin D deficien cy 59587448 Active 2024 Lyn Marmolejo MD [address] [place] [address], [address], [facility] 5 12:54:55 Hyperpar athyroid ism 57274263 Active 2024 Lyn Marmolejo MD [address] [place], [address], [facility] 5 12:54:56 Dysuria 31754298 Active 2024 Dotty Celis null, [facility] 5 14:08:08 Problem Notes None recorded. Procedures Surgical History Date Name Laterality Status Provider Name and Address Organization Details Recorded Time 2024 esophagogastroduodenoscopy completed YANELIS DESIR [facility] 5 12:23:16 2024 colonoscopy completed FELISHA DESIR [facility] 5 10:20:11 2023 esophagogastroduodenoscopy completed KIARA DUCKWORTH [facility] 4 12:40:14 2023 colonoscopy completed Lyn Marmolejo MD [address] [place], [address], [facility] 5 10:19:30 cholecystectomy completed FELISHA DESIR [facility] 3 14:48:40 replacement of mitral valve complete d FELISHA DESIR [facility] 3 14:49:22 section completed FELISHAJAMIE DESIR [facility] 3 15:14:43 Imaging Results None recorded. Procedure Notes None recorded. Medical Equipment None Reported. Allergies Allergen ID Allergen Name Allergen Category Reaction Reaction Severity Criticality Documentation Date Start Date Code Code System Note Provider Name and Address Organization Details Recorded Time 1376 morphine medicatio n Not available Not available Not available 02/07/2023 7052 RxNorm Dotty Sharmaoch [facility] 3 10:45:47 1377 diltiazem Not available Not available Not available Not available 02/07/2023 3443 RxNorm Dotty Sharmaoch [facility] 3 10:45:54 4552 Bactrim medicatio n other severe high 04/17/2023 98188 9 RxNorm do not give d/t couma din Lola Wadelm [facility] 4 13:34:33 08412 diltiazem hydrochlo ride medicatio n Not available Not available Not available 05/26/2023 72442 1 RxNorm Comme nt: Recor ded 12/29 7:56A M by Yanelis Kitchen on, ANESTHESIOLOGIST AND CRITICAL CARE, 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 ; Promo talib; Signi fican ce: *; Reaso n: Drug aller gy; ; [facility] 3 12:26:44 64015 morphine sulfate medicatio n Not available Not available Not available 05/26/2023 79929 RxNorm Comme nt: Recor ded 12/29 7:56A M by Yanelis Kitchen on, ANESTHESIOLOGIST AND CRITICAL CARE, 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 ; Promo talib; Signi fican ce: *; Reaso n: Drug aller gy; ; [facility] 3 12:26:48 Medications Name Sig Start Date Stop Date Status Note LastModified by Organization Details LastModified Time furosemid e 40 mg tablet TAKE 1 AND 1/2 TABLETS BY MOUTH EVERY DAY FOR EDEMA 2024 active Not Available Not Available Not Avai lable Miralax 17 gram/dose oral powder Take 17 g every day by oral route as needed, for hard stools. 2024 active Not Available Not Available Not Avai lable atorvasta tin 40 mg tablet TAKE 1 TABLET BY MOUTH EVERY NIGHT AT BEDTIME active Not Available Not Available No t Available atorvasta tin 80 mg tablet 02/12 completed Not Available Not Available Not Available venlafaxi ne ER 37.5 mg capsule,e xtended release 24 hr 01/14 completed Not Available Not Available Not Available venlafaxi ne ER 75 mg capsule,e xtended release 24 hr TAKE ONE CAPSULE BY MOUTH EVERY DAY FOR FOURTEEN DAYS THEN start 37.5mg dose* 02/10 completed Not Available Not Available Not Available doxycycli ne hyclate 100 mg capsule Take 1 capsule twice a day by oral route for 10 days. 01/14 completed Not Available Not Available Not Available cefuroxim e axetil 250 mg tablet Take 1 tablet every 12 hours by oral route for 7 days. 11/07 completed Not Available Not Available Not Available cetirizin e 10 mg tablet 1 daily prn allergic rhinitis symptoms 2024 active Not Available Not Available Not Avai lable metoprolo l tartrate 100 mg tablet active Not Available Not Available Not Available amiodaron e 200 mg tablet Take 1 tablet every day by oral route. active Not Available Not Available No t Available Milk of Magnesia 400 mg/5 mL oral suspensio n 30 ml oral when no BM X 3 days; may repeat dose after 4 hrs if no result 2024 active Not Available Not Available Not Avai lable venlafaxi ne ER 150 mg capsule,e xtended release 24 hr TAKE ONE CAPSULE BY MOUTH EVERY DAY 11/20 completed Not Available Not Available Not Available warfarin 2.5 mg tablet TAKE 1 TABLET BY MOUTH ON SUNDAY, SUNDAY, , SUNDAY , Sunday active Not Available Not Available Not Avai lable meclizine 12.5 mg tablet TAKE 1 TABLET BY MOUTH EVERY 6 HOURS NEEDED FOR NAUSEA AND VOMITING active Not Available Not Available No t Available aspirin 81 mg tablet,de layed release TAKE 1 TABLET BY MOUTH EVERY DAY 2024 active Not Available Not Available Not Avai lable tramadol 50 mg tablet TAKE 1 TABLET BY MOUTH EVYER 6 HOURS NEEDED; NOT TO EXCEED 3 TABS/DAY FOR PAIN active Not Available Not Available No t Available acetamino phen 500 mg tablet TAKE TWO TABLETS BY MOUTH EVERY 8 HOURS 2024 active Not Available Not Available Not Avai lable triamcino lone acetonide 0.1 % topical cream 11/07 completed Not Available Not Available Not Available spironola ctone 25 mg tablet TAKE ONE TABLET BY MOUTH DAILY active Not Available Not Available No t Available warfarin 3 mg tablet 1 tablet Sun, 07/23 completed Not Available Not Available Not Available levothyro xine 75 mcg tablet TAKE ONE TABLET BY MOUTH EVERY DAY FOR THYROID 2024 active Not Available Not Available Not Avai lable Macrobid 100 mg capsule Take 1 capsule every 12 hours by oral route for 5 days. 03/25 completed Not Available Not Available Not Available Dulcolax (bisacody l) 10 mg rectal supposito ry Insert 1 supposit ory every day by rectal route for 1 day. 06/24 completed Not Available Not Available Not Available potassium chloride ER 20 mEq tablet,ex tended release(p art/cryst ) TAKE ONE TABLET BY MOUTH TWICE DAILY FOR EDEMA 2024 active Not Available Not Available Not Avai lable Pepto-Bis mol 524 mg/30mL oral suspensio n every 6 hrs prn stomach upset or diarrhea 02/17 completed Not Available Not Available Not Available gentamici n 0.3 % eye drops 10/28 completed Not Available Not Available Not Available cephalexi n 500 mg capsule 05/27 completed Not Available Not Available Not Available pantopraz ole 40 mg tablet,de layed release TAKE ONE TABLET BY MOUTH EVERY day 2024 active Not Available Not Available Not Avai lable warfarin 2 mg tablet 1 tablet Sunday and Sunday active MWF Not Available Not Available Not Avai lable losartan 25 mg tablet 1 tablet daily active Not Available Not Available No t Available metoprolo l tartrate 50 mg tablet Take 1 tablet twice a day by oral route. 01/02 completed Not Available Not Available Not Available nitroglyc lazara 0.4 mg sublingua l tablet 1 TABLET UNDER THE TONGUE EVERY 5 MINUTES X3 NEEDED FOR CHEST PAIN active Not Available Not Available No t Available Tylenol 325 mg tablet every 6 hrs prn fever or mild to moderate pain 07/04 completed no more than 4 Grams of tylenol total between all meds in 24 hrs or more. No more than 1000 mg in 6 hr period Not Available Not Available Not Available cephalexi n 500 mg tablet Take 1 tablet 3 times a day by oral route for 5 days. 03/25 completed Not Available Not Available Not Available folic acid 1 mg tablet TAKE 1 TABLET BY MOUTH EVERY DAY 2024 active Not Available Not Available Not Avai lable hydroxyzi ne HCl 25 mg tablet TAKE 1 TABLET BY MOUTH THREE TIMES DAILY NEEDED FOR ANXIETY active Not Available Not Available No t Available cyanocoba bernie (vit B-12) 1,000 mcg sublingua l tablet dissolve TWO tablets UNDER THE TONGUE ONCE daily 2024 active Not Available Not Available Not Avai lable mirtazapi ne 15 mg tablet Take 1 tablet every day by oral route. active Not Available Not Available No t Available ipratropi um bromide 42 mcg (0.06 %) nasal spray active Not Available Not Available Not Available betametha sone dipropion ate 0.05 % topical ointment APPLY A THIN LAYER TO THE AFFECTED AREA(S) BY TOPICAL ROUTE twice DAILYto scaly patch on the left back only 06/26 completed Not Available Not Available Not Available galantami ne 8 mg tablet daily 06/08 completed 0; Recorded 12/30/19 23 7:56AM by Felisha Desir LPN, Office Visit; Not Available Not Available Not Available amoxicill in 875 mg-potass ium clavulana te 125 mg tablet Take 1 tablet twice a day by oral route for 5 days. 10/28 completed Not Available Not Available Not Available Natural Fiber Laxative (sugar) oral powder DISSOLVE 30GM IN WATER EVERY DAY AND DRINK 2023 active Not Available Not Available Not Avai lable enoxapari n 100 mg/mL subcutane ous syringe 0.75 ml sc injectio n q 12 hours.di scontinu e when INR is greater than 2.5 02/17 completed Not Available Not Available Not Available memantine 10 mg tablet Take 1 tablet twice a day by oral route. 10/28 completed Not Available Not Available Not Available memantine 5 mg tablet Take 1 tablet twice a day by oral route for 90 days. active Not Available Not Available No t Available galantami ne ER 8 mg 24 hr capsule,e xtended release 1 tablet daily active Not Available Not Available No t Available Vitamin B-12 daily 11/07 completed 436; Recorded 01/02/20 23 3:42PM by Felisha Desir LPN (Authori candelario through Lyn Marmolejo MD), Refill Request; Refill Quantity : 60; Tablet; Not Available Not Available Not Available metoprolo l tartrate twice daily 06/08 completed 0; Recorded 12/30/19 23 7:56AM by Felisha Desir LPN, Office Visit; Not Available Not Available Not Available folic acid 06/08 completed Not Available Not Available Not Available iron every other day 06/08 completed 436; Recorded 09/25/20 22 2:38PM by Felisha Desir LPN (Authori candelario through Lyn Marmolejo MD), Refill Request; Refill Quantity : 15; Tablet; Not Available Not Available Not Available meclizine every 6 hours as needed 06/08 completed 0; Recorded 12/30/19 7:56AM by Felisha Desir LPN, Office Visit; Not Available Not Available Not Available amiodaron e daily 06/08 completed Further refills need to come from cardiolo gy. One month supply given only to make sure she does not run out. Thank you.; Recorded 11/15/19 22 3:06PM by Zehra Gonzalez LPN, Historic al Summary; Refill Quantity : 0; Not Available Not Available Not Available venlafaxi ne daily 06/08 completed AM/CC; 436; Recorded 11/13/19 23 3:03PM by Dotty Larry RN (Authori candelario through Lyn Marmolejo MD), Refill Request; Refill Quantity : 30; Capsule; Not Available Not Available Not Available furosemid e daily 06/08 completed 436; Recorded 03/06/20 23 3:43PM by Felisha Desir LPN (Authori zed through Lyn Marmolejo MD), Refill Request; Refill Quantity : 30; Tablet; Not Available Not Available Not Available fiber 06/08 completed Not Available Not Available Not Available THSC Levothyro xine Sodium daily 06/08 completed 36569; Recorded 01/09/20 6:06PM by Shirley Quevedo (Authori zed through Travis Sousa MD), Refill Request; Refill Quantity : 30; Tablet; Not Available Not Available Not Available galantami ne 04/17 completed Not Available Not Available Not Available Potassium Chloride ER twice daily 06/08 completed 436; Recorded 03/13/20 3:22PM by Felisha Desir LPN (Authori zed through Lyn Marmolejo MD), Refill Request; Refill Quantity : 60; Tablet; Not Available Not Available Not Available Vitamin B12 06/08 completed Not Available Not Available Not Available FeroSul 325 mg (65 mg iron) tablet TAKE 1 TABLET BY MOUTH EVERY OTHER DAY FOR anemia 10/30 completed Not Available Not Available Not Available Fiber (psyllium husk) daily 02/12 completed Not Available Not Available Not Available mecobalam in (vitamin B12) 1,000 mcg disintegr ating tablet,ojeda blingual Take 2 TABLETS UNDER THE TONGUE EVERY DAY FOR VITAMIN B DEFICIEN CY 2023 active Not Available Not Available Not Avai lable losartan potassium (bulk) 25mg 04/17 completed Not Available Not Available Not Available Paxlovid 300 mg (150 mg x 2)-100 mg tablets in a dose pack Take 3 tablets twice a day by oral route for 5 days. 01/02 completed Not Available Not Available Not Available Vitals Date Recorded Body height Body mass index (BMI) Body weight Body temperature Heart rate Oxygen saturation Oxygen saturation in Arterial blood by Pulse oximetry Systolic And Diastolic Provider Name and Address Organization Details Last Updated DateTime 5 154.94 cm 28.7 kg/m2 56507.0 4 g 97.7 [degF] 65 /min 94 % 94 % 144/86 mm[Hg] Dotty Celis [facility] 5 14:07:05 Social History Question Answer Notes LastModified by Organizat ion Details LastModified Time Tobacco Smoking Status Former Smoker FELISHA hamilton, [facility] 04/17/2023 14:48:01 What Was The Date Of Your Most Recent Tobacco Screening? 05/27/2025 [email or web address] Information not available 05/27/2025 Sex: Unknown Functional Status Question Answer Note LastModified by Organizat ion Details LastModified Time Do you use any illicit or recreational drugs? No Information not available 04/17/2023 Do you or have you ever used any other forms of tobacco or nicotine? No [email or web address] Information not available 06/29/2023 What is your level of alcohol consumption? None [email or web address] Information not available 04/17/2023 Mental Status None recorded. Family History Relationship Description Onset Age of this Age Resolved Age Notes LastModified by Organization Details LastModified Time Unspecified Relation Coronary atherosclero sis [email or web address] Not available 06/29 15:13:48 Medical History No medical history recorded. Gynecological HistoryNo gynecological history recorded. Obstetrics History GPAL:G 0 P 0 0 0 0 Immunizations Vaccine Type Date Status Note Provider Nam e and Address Organization Details Recorded Time Influenza, MDCK, quadrivalent, PF 2 completed FELISHA hamilton [facility] 10/10/2024 08:38:58 COVID-19, mRNA, LNP-S, PF, 100 mcg/0.5mL dose or 50 mcg/0.25mL dose 1 completed FELISHA hamilton [facility] 10/10/2024 08:38:58 COVID-19, mRNA, LNP-S, PF, 100 mcg/0.5mL dose or 50 mcg/0.25mL dose 1 completed FELISHA hamilton [facility] 10/10/2024 08:38:58 COVID-19, mRNA, LNP-S, PF, 100 mcg/0.5mL dose or 50 mcg/0.25mL dose 2 completed FELISHA hamilton, [facility] 10/10/2024 08:38:58 Pneumococcal conjugate PCV20, polysaccharide QIW069 conjugate, adjuvant, PF 3 completed FELISHA hamilton, [facility] 10/10/2024 08:38:58 COVID-19, mRNA, LNP-S, bivalent, PF, 50 mcg/0.5 mL or 25mcg/0.25 mL dose 3 completed FELISHA hamilton, [facility] 10/10/2024 08:38:58 pneumococcal polysaccharide PPV23 3 [facility] 04/17/2023 12:02:00 Tdap 1 completed FELISHA hamilton, [facility] 10/10/2024 08:38:58 Influenza, split virus, trivalent, PF 3 [facility] 04/17/2023 12:02:00 influenza, split (incl. purified surface antigen) 0 completed FELISHA hamilton, [facility] 04/17/2023 12:02:00 Hep A, adult 1 [facility] 10/10/2024 08:38:58 Hep A, adult 9 completed FELISHA hamilton, [facility] 10/10/2024 08:38:58 Influenza, split virus, quadrivalent, PF 1 completed FELISHA hamilton, [facility] 10/10/2024 08:38:58 Influenza, split virus, quadrivalent, PF 9 completed FELISHA hamilton, [facility] 10/10/2024 08:38:58 Influenza, MDCK, trivalent, PF 4 completed FELISHA DESIR null, [facility] 10/10/2024 08:38:58 Influenza, MDCK, quadrivalent, preservative 3 completed FELISHA DESIR null, [facility] 10/10/2024 08:38:58 pneumococcal polysaccharide PPV23 8 completed Lola hamilton, [facility] 07/02/2024 08:41:52 Influenza, split virus, quadrivalent, PF 8 completed Lola hamilton, [facility] 07/02/2024 08:41:52 zoster recombinant 3 completed Lola hamilton, [facility] 07/02/2024 14:52:40 COVID-19, mRNA, LNP-S, PF, 50 mcg/0.5 mL 4 completed FELISHA hamilton, [facility] 10/10/2024 08:38:58 Influenza, MDCK, trivalent, preservative 4 completed FELISHA DESIR null, [facility] 10/10/2024 08:38:58 Past Encounters Encounter ID Performer Location Encounter Start Date Encounter Closed Date Diagnosis/Indication Diagnosis SNOMED-CT Code Diagnosis ICD10 Code Diagnosis IMO Codes Diagnosis Note [id number] Lyn Marmolejo MD [facility] ([facility]) [address] [place] [address] 02/07/2023 10:19:57 02/14/2023 10:45:49 Strain of thoracic region 13949357 S29.019A use your prn pain mediation. call if worsening. [id number] Lyn Marmolejo MD [facility] ([facility]) [address] [place] [address] [id number] 5 02/14/2023 10:43:17 02/15/2023 17:26:16 Chronic low back pain 309822906 M54.50 [id number] Constantino Merlos DO [facility] ([facility]) [address] [place] [id number] 5 02/21/2023 09:19:45 02/21/2023 11:05:37 Nasal congestion 66825145 R09.81 Acute sinusitis 60922499 J01.90 1 wk of symtoms, wrosening for last 3 days. covid and flu A and B negative today. will start abx due to comorbidit ies and wornseing symptoms. Return to office with no improvemen t or any problems. Go to ER with severe worsening or severe problems. [id number] Lyn Marmolejo MD [facility] ([facility]) [address] [place] [address] [id number] 5 04/17/2023 08:30:45 04/26/2023 09:32:24 Diabetes mellitus 65822083 E11.59 Hypothyroidism 55950565 E03.9 Female uri nary stress incontinence 11319481 N39.3 Not interested in surgical management at this time Frail elderly 968945231 R54 [facility] [id number] 6949205 Z74.1 Dementia 48961630 F03.90 Coronary atherosclerosis 526121507 I25.598 [id number] Lyn Marmolejo MD [facility] ([facility]) [address] [place] [address] [id number] 5 06/08/2023 12:20:01 06/08/2023 13:17:48 Neck pain 50981794 M54.2 [id number] Lyn Marmolejo MD [facility] ([facility]) [address] [place] [address] [id number] 5 06/29/2023 08:43:26 07/09/2023 14:07:10 Benign essential hypertension 6565201 I10 Atrial fibrillation 4943 6004 I48.91 Hypothyroidism 94838481 E03.9 Coronary atherosclerosis 370716371 I25.128 [id number] Lyn Marmolejo MD [facility] ([facility]) [address] [place] [address] [id number] 5 07/17/2023 15:47:18 08/01/2023 10:19:07 [id number] Lyn Marmolejo MD [facility] ([facility]) [address] [place] [address] [id number] 5 07/18/2023 11:59:39 07/18/2023 15:46:29 Pruritic rash 13276597 L28.2 patch rash with scale left upper lateral backshe has no other rash patch etcfavorin g psoriasis. Acquired scoliosis 64471 6001 M41.9 [id number] Lyn Marmolejo MD [facility] ([facility]) [address] [place], [place] [address] 5 08/27/2023 13:38:26 09/03/2023 15:02:50 Atrial fibrillation 86958803 I48.91 [id number] Lyn Marmolejo MD [facility] ([facility]) [address] [place] [address] [id number] 5 08/29/2023 11:48:52 08/29/2023 13:03:23 Hypothyroidism 67961435 E03.9 Type 2 brenda betes mellitus 21077398 E11.9 [id number] Lyn Marmolejo MD [facility] ([facility]) [address] [place] [address] [id number] 5 09/25/2023 14:58:13 10/01/2023 11:08:35 Atrial fibrillation 90113465 I48.91 [id number] Lyn Marmolejo MD [facility] ([facility]) [address] [place] [address] [id number] 5 09/28/2023 08:22:55 10/03/2023 10:36:00 Atrial fibrillation 82784235 I48.91 Hyperlipidemia 34357414 E78.00 Hypothyroidism 19226520 E03.9 Type 2 brenda betes mellitus 83397848 E11.9 Esophageal dysphagia 408 09204 R13.19 Cough 74641285 R05.9 [id number] Lyn Marmolejo MD [facility] ([facility]) [address] [place] [address] [id number] 5 10/12/2023 09:31:01 10/12/2023 10:18:44 Benign essential hypertension 1747205 I10 [id number] SHARON GARZON [facility] ([facility]) [address] [place] [address] [id number] 5 10/12/2023 13:42:39 10/18/2023 12:21:01 Dysuria 49329544 R30.0 Acute urin nhung tract infection 333640860 N39.0 [id number] Lyn Marmolejo MD [facility] ([facility]) [address] [place] [address] [id number] 5 11/02/2023 11:29:05 11/06/2023 09:48:39 Atrial fibrillation 22463313 I48.91 [id number] Lyn Marmolejo MD [facility] ([facility]) [address] [place] [address] [id number] 5 11/07/2023 09:01:58 11/07/2023 11:07:24 Dementia 80205249 F03.90 Atrial fibrillation 4943 6004 I48.91 Coronary atherosclerosis 946134497 I25.119 Hypothyroidism 65169547 E03.9 Hyperlipidemia 17585207 E78.00 Depressive disorder 3548 9007 F32.A will need med adjustment most likely. 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 [id number] Lyn Marmolejo MD [facility] ([facility]) [address] [place] [address] [id number] 5 11/15/2023 14:44:57 11/19/2023 07:33:27 Atrial fibrillation 06352578 I48.91 [id number] Lyn Marmolejo MD [facility] ([facility]) [address] [place] [address] [id number] 5 11/20/2023 09:33:11 11/21/2023 13:21:39 Atrial fibrillation 41683773 I48.91 [id number] Lyn Marmolejo MD [facility] ([facility]) [address] [place] [address] [id number] 5 11/27/2023 13:33:40 11/27/2023 14:57:35 Atrial fibrillation 16233212 I48.91 [id number] Lyn Marmolejo MD [facility] ([facility]) [address] [place] [address] [id number] 5 12/11/2023 10:07:28 12/14/2023 15:19:27 Atrial fibrillation 66533765 I48.91 [id number] Lyn Marmolejo MD [facility] ([facility]) [address] [place] [address] [id number] 5 12/25/2023 15:15:19 12/27/2023 12:08:25 Atrial fibrillation 07818373 I48.91 [id number] Lyn Marmolejo MD [facility] ([facility]) [address] [place] [address] [id number] 5 12/28/2023 08:26:17 01/01/2024 08:43:00 Atrial fibrillation 66925154 I48.91 Hyperlipidemia 86549544 E78.00 Hypothyroidism 62862980 E03.9 History of mechanical prosthetic mitral valve replacement 314769677 Z95.2 Frail elderly 593382647 R54 Need for [facility] care assistance [phone] 4272547 Z74.1 [id number] Lyn Marmolejo MD [facility] ([facility]) [address] [place] [address] [id number] 5 01/04/2024 10:25:22 01/09/2024 06:41:29 Atrial fibrillation 37688848 I48.91 [id number] LIA HERNANDEZ APRN [facility] ([facility]) [address] [place] [address] [id number] 5 01/15/2024 12:59:04 01/16/2024 11:43:55 Dysuria 96106143 R30.0 Urine will be sent for culture Low back pain 174018223 M54.50 Instructed on exercises. Follow up for worsening [id number] Lyn Marmolejo MD [facility] ([facility]) [address] [place] [address] [id number] 5 01/25/2024 10:56:45 01/28/2024 07:51:23 Atrial fibrillation 07416056 I48.91 [id number] Lyn Marmolejo MD [facility] ([facility]) [address] [place] [address] [id number] 5 01/28/2024 13:26:01 01/28/2024 15:49:26 Cough 13585687 R05.9 Lightheadedness 64386647 8 R42 Atrial fibrillation 4943 6004 I48.91 History of mechanical prosthetic mitral valve replacement 909560448 Z95.2 Dementia 82808012 F03.90 [id number] Lyn Marmolejo MD [facility] ([facility]) [address] [place] [address] [id number] 5 02/13/2024 12:03:53 02/15/2024 09:32:04 Dysuria 34302262 R30.0 [id number] Lyn Marmolejo MD [facility] ([facility]) [address] [place] [address] [id number] 5 02/13/2024 12:14:40 02/15/2024 11:11:53 Hyperlipidemia 82551831 E78.00 Dysuria 68901780 R30.0 Impaired mobility 980845 05 Z74.09 [id number] Lyn Marmolejo MD [facility] ([facility]) [address] [place] [address] [id number] 5 03/25/2024 12:47:12 03/28/2024 07:11:51 Atrial fibrillation 20638915 I48.91 [id number] Lyn Marmolejo MD [facility] ([facility]) [address] [place] [address] [id number] 5 03/25/2024 13:02:42 03/25/2024 14:26:32 Dysuria 19708903 R30.0 urine dip is normal will await micro. [id number] Lyn Marmolejo MD [facility] ([facility]) [address] [place] [address] [id number] 5 04/04/2024 08:10:41 04/09/2024 09:06:52 Atrial fibrillation 03437751 I48.91 Depressive disorder 9786 9007 F32.A will need med adjustment most likely. awaiting more info Hyperlipidemia 22632994 E78.00 Hypothyroidism 17223633 E03.9 Dementia 01258408 F03.90 stable and without worrisome behaviors/ intrusive fears etc. [id number] Lyn Marmolejo MD [facility] ([facility]) [address] [place], [place] [address] 5 04/17/2024 11:27:00 05/14/2024 13:15:51 Atrial fibrillation 03367213 I48.91 [id number] Lyn Marmolejo MD [facility] ([facility]) [address] [place], [place] [address] 5 05/19/2024 12:53:57 05/21/2024 22:28:15 Atrial fibrillation 33632431 I48.91 [id number] Lyn Marmolejo MD [facility] ([facility]) [address] [place], [place] [address] 5 05/19/2024 13:28:05 05/20/2024 17:37:09 Constipation 11036912 K59.00 [id number] yLn Marmolejo MD [facility] ([facility]) [address] [place] [address] [id number] 5 05/22/2024 13:52:36 05/26/2024 08:53:22 Atrial fibrillation 68748739 I48.91 [id number] Lyn Marmolejo MD [facility] ([facility]) [address] [place], [place] [address] 5 05/27/2024 10:13:03 05/27/2024 15:56:07 Atrial fibrillation 83018972 I48.91 warfarin has been held for i bleeding will recheck today. History of mechanical prosthetic mitral valve replacement 855645666 Z95.2 Melena 4675837 K92.1 has resoled since holding warfarin [id number] Lyn Marmolejo MD [facility] ([facility]) [address] [place] [address] [id number] 5 06/09/2024 14:51:03 06/11/2024 12:46:51 Atrial fibrillation 77590241 I48.91 warfarin has been held for i bleeding will recheck today. [id number] Lyn Marmolejo MD [facility] ([facility]) [address] [place] [address] [id number] 5 07/04/2024 08:21:57 07/07/2024 13:50:59 Anxiety 39066066 F41.9 Depressive disorder 3548 9007 F32.A Hypothyroidism 95143560 E03.9 Chronic low back pain 27 7946005 M54.50 [id number] Lyn Marmolejo MD [facility] ([facility]) [address] [place] [address] [id number] 5 08/07/2024 09:44:31 08/07/2024 13:32:53 Iron deficiency anemia 55771988 D50.9 Hypothyroidism 99610800 E03.9 Type 2 brenda betes mellitus 27278839 E11.9 Atrial fibrillation 4943 6004 I48.91 warfarin has been held for i bleeding will recheck today. [id number] Lyn Marmolejo MD [facility] ([facility]) [address] [place] [address] [phone] 5 08/14/2024 13:17:46 08/14/2024 13:53:26 Right flank pain 459563432 R10.9 has greatly improved. will inquire about her bm frequency. [id number] Lyn Marmolejo MD [facility] ([facility]) [address] [place] [address] [id number] 5 08/15/2024 14:56:42 08/16/2024 23:09:29 Atrial fibrillation 55043649 I48.91 warfarin has been held for i bleeding will recheck today. [id number] Lyn Marmolejo MD [facility] ([facility]) [address] [place] [address] [id number] 5 09/05/2024 15:29:03 09/08/2024 14:47:15 Atrial fibrillation 84987057 I48.91 warfarin has been held for i bleeding will recheck today. [id number] Lyn Marmolejo MD [facility] ([facility]) [address] [place] [address] [id number] 5 09/22/2024 13:56:04 09/24/2024 23:01:26 Atrial fibrillation 08154080 I48.91 warfarin has been held for i bleeding will recheck today. [id number] Lyn Marmolejo MD [facility] ([facility]) [address] [place] [address] [id number] 5 10/02/2024 09:54:39 10/04/2024 06:10:42 Atrial fibrillation 12238052 I48.91 warfarin has been held for i bleeding will recheck today. [id number] Constantino Merlos DO [facility] ([facility]) [address] [place], [place] [address] 5 10/06/2024 15:26:43 10/06/2024 16:30:28 Dysuria 32101158 R30.0 Acute urin nhung tract infection 550145107 N39.0 I reviewed UA results and discussed with pt. We will start antibiotic s. Pt will increase oral fluids and can use cranberry. Return to office with no improvemen t or any problems. Go to ER with severe worsening or severe problems.W e will obtain urine culture [id number] Lyn Marmolejo MD [facility] ([facility]) [address] [place], [place] [address] 5 10/10/2024 08:00:57 10/27/2024 13:21:20 Anxiety 89152935 F41.9 Atrial fibrillation 4943 6004 I48.91 warfarin therapy Hyperlipidemia 27928966 E78.00 Hypothyroidism 51618628 E03.9 Disorder o f vitamin B12 436417281 E53.8 [id number] Lyn Marmolejo MD [facility] ([facility]) [address] [place] [address] [id number] 5 10/28/2024 12:52:20 10/30/2024 11:20:46 Abdominal pain 94145930 R10.9 Chronic constipation 236 078877 K59.09 Warfarin m onitoring status 684277063 Z51.81 Vitamin B1 2 deficiency (non anemic) 56193390 E53.8 Iron deficiency 57778760 E61.1 [id number] Lyn Marmolejo MD [facility] ([facility]) [address] [place] [address] [id number] 5 11/11/2024 09:45:45 11/11/2024 10:22:04 Fever 084891628 R50.9 COVID-19 200245187 U07.1 [id number] Lyn Marmolejo MD [facility] ([facility]) [address] [place] [address] [id number] 5 11/13/2024 14:46:08 11/14/2024 12:19:12 History of mechanical prosthetic mitral valve replacement 035056840 Z95.2 [id number] Lyn Marmolejo MD [facility] ([facility]) [address] [place] [address] [id number] 5 12/26/2024 14:59:56 12/29/2024 13:20:48 Atrial fibrillation 93283356 I48.91 warfarin therapy [id number] Lyn Marmolejo MD [facility] ([facility]) [address] [place] [address] [id number] 5 01/02/2025 07:55:44 01/02/2025 16:44:05 Anxiety 38593558 F41.9 Atrial fibrillation 4943 6004 I48.91 warfarin therapy Benign ess ential hypertension 5964310 I10 Dementia 27767174 F03.90 stable and without worrisome behaviors/ intrusive fears etc. Frail elderly 049770704 R54 Hypothyroidism 81819081 E03.9 Moderate r ecurrent major depression 29452621 F33.1 Need for [facility] care assistance [id number] 3077051 Z74.1 Hyperlipidemia 83730033 E78.00 Gastroesop hageal reflux disease 896002665 K21.9 Constipation 45549785 K5 9.00 Disorder o f vitamin B12 381029580 E53.8 b-12 lab with next blood draw [id number] SHARON WICK [facility] ([facility]) [address] [place] [address]966 5 01/07/2025 11:17:05 01/07/2025 12:46:26 Gastroesophageal reflux disease [id number] K21.9 Return to BID dosing of pantoprazo le. Avoid all tomato based foods, carbonated drinks. Follow up with PCP. RTC with any new or worsening symptoms. 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 [id number] Lyn Marmolejo MD [facility] ([facility]) [address] [place] [address] 5 02/17/2025 12:58:21 03/09/2025 14:31:11 Dysuria 78433274 R30.0 72190 Black feces 171772332 K9 2.1 347726 d/c pepto bismol Epigastric pain 05642368 R10.13 18957 History of Helicobacter pylori infection [id number] 4507122 Z86.19 [id number] [id number] Lyn Marmolejo MD [facility] ([facility]) [address] [place] [address] 5 03/10/2025 13:39:29 03/11/2025 10:21:30 Atrial fibrillation 13034785 I48.91 warfarin therapy [id number] Lyn Marmolejo MD [facility] ([facility]) [address] [place] [address] 5 03/16/2025 11:42:25 03/16/2025 15:49:30 Mean corpuscular volume above reference range 074464886 R71.8 [id number] Lyn Marmolejo MD [facility] ([facility]) [address] [place] [address] 5 04/03/2025 08:43:13 04/07/2025 07:54:01 Atrial fibrillation 31811529 I48.91 warfarin therapy Benign ess ential hypertension 4954396 I10 Hyperlipidemia 76504883 E78.00 Hypothyroidism 66788063 E03.9 Iron defic iency anemia 11108896 D50.9 Difficulty walking 40600 2002 R26.2 56503 Does mobil ize using walker 334035127 Z99.89 [id number] [id number] Lyn Marmolejo MD [facility] ([facility]) [address] [place] [address]16-595 5 05/07/2025 11:08:19 05/08/2025 11:02:05 Atrial fibrillation 89675888 I48.91 warfarin therapy [id number] Lyn Marmolejo MD [facility] ([facility]) [address] [place] [address]-148 5 05/18/2025 13:36:52 05/19/2025 13:07:58 Atrial fibrillation 53157214 I48.91 warfarin therapy [id number] SHARON HARDIN [facility] ([facility]) [address] [place] [address]607-291 5 05/27/2025 10:23:37 05/27/2025 11:20:20 Abdominal mass 965362331 R19.00 [id number] Sent to ER for CT scan to r/o strangulat ed hernia to right inguinal region. Pulley Man [facility] pt. [id number] Lyn Marmolejo MD [facility] ([facility]) [address] [place] [address]18-921 5 06/05/2025 11:28:33 06/08/2025 12:35:39 Hypothyroidism 01239822 E03.9 Viral screening 47363446 4 Z11.59 3142507 Physical examination 588 0005 Z00.00 327589 Long-term current use of drug therapy 595569150 Z79.090 0902437 [id number] Lyn Marmolejo MD [facility] ([facility]) [address] [place] [address] 57901-088 5 06/11/2025 10:52:49 06/12/2025 12:43:36 Hypercalcemia 40324191 E83.52 [id number] Lyn Marmolejo MD [facility] ([facility]) [address] [place] [address]65-316 5 06/24/2025 12:18:01 06/30/2025 13:41:59 Hyperparathyroidism 73524118 E21.3 08849 corrected and ionized calcium are normalgfr 52 and stable Vitamin D deficiency 347 73705 E55.9 85112 [id number] Lyn Marmolejo MD [facility] ([facility]) [address] [place] [address] 49087-698 5 07/01/2025 10:24:23 07/02/2025 11:29:38 Atrial fibrillation 19473136 I48.91 warfarin therapy [id number] Lyn Marmolejo MD [facility] ([facility]) [address] [place] [address] 22825-389 5 07/03/2025 08:14:55 07/13/2025 10:06:37 Benign essential hypertension 9546678 I10 Coronary atherosclerosis 161557062 I25.119 Atrial fibrillation 4943 6004 I48.91 warfarin therapyd/c naproxen d/t hx of bleeding Hyperlipidemia 48909191 E78.00 Hypothyroidism 94825292 E03.9 Hyperparathyroidism 6699 9008 E21.3 31536 [id number] Lyn Marmolejo MD [facility] ([facility]) [address] [place] [address]25-613 5 07/06/2025 11:22:40 07/07/2025 09:33:46 History of mechanical prosthetic mitral valve replacement 951379499 Z95.2 [id number] Lyn Marmolejo MD [facility] ([facility]) [address] [place] [address] 86089-216 5 07/09/2025 13:42:58 07/10/2025 14:24:59 Atrial fibrillation 97734506 I48.91 warfarin therapyd/c naproxen d/t hx of bleeding [id number] Lyn Marmolejo MD [facility] ([facility]) [address] [place] [address]41-581 5 07/14/2025 13:52:08 07/15/2025 10:22:44 Dysuria 43373968 R30.0 15400 will call with ua results [id number] Lyn Marmolejo MD [facility] ([facility]) [address] [place] [address] 14844-187 5 07/16/2025 12:05:46 07/17/2025 11:01:38 Atrial fibrillation 04286967 I48.91 warfarin therapyd/c naproxen d/t hx of bleeding [id number] Lyn Marmolejo MD [facility] ([facility]) [address] [place] [address]28-173 5 07/23/2025 11:35:38 07/24/2025 12:08:17 Atrial fibrillation 45447499 I48.91 warfarin therapyd/c naproxen d/t hx of bleeding [id number] Lyn Marmolejo MD [facility] ([facility]) [address] [place] [address] 07/30/2025 11:32:37 07/31/2025 09:44:15 History of mechanical prosthetic mitral valve replacement 303141120 Z95.2 Health Concerns Section Related Observation LastModified by Organization Detai ls LastModified Time None Recorded Concern Status LastModified by Organization Details LastModified Time None Recorded Advance Directives Directive None Recorded Payers Insurance Date Sequence Insurance Name Policy Number Policy Hernandez Covered Member ID Hernandez Member ID Guarantor Name 07/30/2025 [place] [facility] Odilia Ulloa [id number] Odilia Laila 07/30/2025 2 [place] Odilia Laila [id number] Odilia Laila 07/30/2025 1 [place] - [place]) [id number] Odilia Laila [id number] Odilia Laila Notes Date Note Type Note Provider Name and Address Organization Details Recorded Time 07/14/2025 text/html LUTSReported by PatientHPIFor associated symptoms, patient reportsback pain,pain during urination,nausea,feve r (pt states she felt feverish a few days ago), andurge incontinencebut reportsno abdominal pain,no hematuria,no vomiting, andno straining. For duration, patient reports5 days.Pt states she feels like her bones are sore ROS as noted in the HPI Lyn Marmolejo MD [address] [place] [address], [phone], [facility], [place] 07/14/2025 14:37:48 OBGyn Episode No OBEpisode recorded.
--- OUTSIDE RECORDS SUMMARY | 2025-08-01 23:16 | XMS_ITS | Encounter Summary ---
Author Organization [facility] Address [address] [place] [address] Care Team Providers Care Fire Alarm Technician Name Role Phone Rico Muñiz MD, Sharan Jaime Primary Care Provider Encounter Details Date Type Department Care Team (Latest Contact Info) Description 07/15/2002 Outpatient Historical [facility] Rafael Lopez Michelle [address] [place] [phone] Patrick Olsen MD NO ADDRESS ON FILE POSTMENOPAUSAL BLEEDING (Primary Dx); DYSPAREUNIA; SCREENING MAL NEOP-CERVIX Social History Tobacco Use Types Packs/Day Years Used Date Smoking Tobacco: Never Assessed Comments Unknown Sex and Gender Information Value Date Recorded Sex Assigned at Not on file Legal Sex Female 5: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
--- OUTSIDE RECORDS SUMMARY | 2025-08-01 23:16 | XMS_ITS | Encounter Summary ---
Author Organization [facility] Address [address] [place] [address] Care Team Providers Care Junk Removal Specialist Name Role Phone Rico Muñiz MD, Sharan Jaime Primary Care Provider Encounter Details Date Type Department Care Team (Latest Contact Info) Description 06/24/2002 Outpatient Historical [facility] [address] [place] [address] Serge Arrington MD [address] [place] [address] Mitral valve disorder (Primary Dx); CORONARY ATHEROSCLER UNSPEC VESSEL; HYPERTENSION NOS; HYPERLIPIDEMIA NEC/NOS Social History Tobacco Use Types Packs/Day Years Used Date Smoking Tobacco: Never Assessed Comments Unknown Sex and Gender Information Value Date Recorded Sex Assigned at Not on file Legal Sex Female 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
--- OUTSIDE RECORDS SUMMARY | 2025-08-01 23:16 | XMS_ITS | Encounter Summary ---
Author Organization [facility] Address [address] [place] [address] Care Team Providers Care Plastics Fabricator And Assembler Name Role Phone Rico Muñiz MD, Sharan Jaime Primary Care Provider Encounter Details Date Type Department Care Team (Latest Contact Info) Description 08/06/2006 Outpatient Historical [facility] Int Luis AFaisal Lopez [address] [place] [phone] Serge Arrington MD [address] [place] [address] Routine Gynecological Examination (Primary Dx) Social History Tobacco Use Types Packs/Day Years Used Date Smoking Tobacco: Never Assessed Comments Unknown Sex and Gender Information Value Date Recorded Sex Assigned at Not on file Legal Sex Female 5:42 AM 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
--- OUTSIDE RECORDS SUMMARY | 2025-08-01 23:16 | XMS_ITS | Encounter Summary ---
Author Organization [facility] Address [address] [place] [address] Care Team Providers Care It Infrastructure Engineer Name Role Phone Rico Muñiz MD, Sharan Jaime Primary Care Provider Encounter Details Date Type Department Care Team (Latest Contact Info) Description 04/23/2002 Outpatient Historical [facility] Sharan Gómez Jr., MD [address] [place] [address] Pure hypercholesterolem (Primary Dx); HYPERCALCEMIA Social History Tobacco Use Types Packs/Day Years Used Date Smoking Tobacco: Never Assessed Comments Unknown Sex and Gender Information Value Date Recorded Sex Assigned at Not on file Legal Sex Female 5:42 AM MATRIX WORKER Gender Identity Not on file Sexual Orientation Not on file documented as of this encounter Plan of Treatment Not on file documented as of this encounter Visit Diagnoses Diagnosis Pure hypercholesterolem- Primary Pure hypercholesterolemia Hypercalcemia documented in this encounter Care Teams It Infrastructure Engineer Relationship Specialty Start Date End Date Sharan Gómez Jr., MD [address] [place] [address] PCP - General 08/10/05 documented as of this encounter
--- OUTSIDE RECORDS SUMMARY | 2025-08-01 23:16 | XMS_ITS | Encounter Summary ---
Author Organization [facility] Address [address] [place] [address] Care Team Providers Care Online Facilitator Name Role Phone Rico Muñiz MD, Sharan Jaime Primary Care Provider Encounter Details Date Type Department Care Team (Latest Contact Info) Description 08/06/2006 Outpatient Historical [facility] Int Luis AFaisal Lopez [address] [place] [phone] Serge Arrington MD [address] [place] [address] Mitral Valve Disorder (Primary Dx); Other and Unspecified Hyperlipidemia; Screening for Malignant Neoplasm of the Cervix Social History Tobacco Use Types Packs/Day Years Used Date Smoking Tobacco: Never Assessed Comments Unknown Sex and Gender Information Value Date Recorded Sex Assigned at Not on file Legal 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
--- OUTSIDE RECORDS SUMMARY | 2025-08-01 23:16 | XMS_ITS | Encounter Summary ---
Author Organization [facility] Address [address] [facility] Attn: [place] [address] Care Team Providers Care A Operator Name Role Phone Rioc Muñiz MD, Sharan Jaime Primary Care Provider Encounter Details Date Type Department Care Team (Late st Contact Info) Description 04/23/2002 Outpatient Historical Sharan Gómez Jr., MD [address] [place] [address] Social History Tobacco Use Types Packs/Day Years Used Date Smoking Tobacco: Never Assessed Comments Unknown Sex and Gender Information Value Date Recorded Sex Assigned at Not on file Legal Sex Female 5:42 AM DATA COLLECTION 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
--- OUTSIDE RECORDS SUMMARY | 2025-08-01 23:16 | XMS_ITS | Encounter Summary ---
Author Organization [facility] Address [address] [facility] Attn: [place] [address] Care Team Providers Care Foam Fabricator Name Role Phone Rico Muñiz MD, Sharan Jaime Primary Care Provider Encounter Details Date Type Department Care Team (Late st Contact Info) Description 07/03/2002 Outpatient Historical Екатерина Malone MD [address] [place] [address] Social History Tobacco Use Types Packs/Day Years Used Date Smoking Tobacco: Never Assessed Comments Unknown Sex and Gender Information Value Date Recorded Sex Assigned at Not on file Legal Sex Female 5:42 AM GLOBAL HEAD ADVERTISER SOLUTIONS Gender Identity Not on file Sexual Orientation Not on file documented as of this encounter Plan of Treatment Not on file documented as of this encounter Visit Diagnoses Not on filedocumented in this encounter Care Teams Foam Fabricator Relationship Specialty Start Date End Date Sharan Gómez Jr., MD [address] [place] [address] PCP - General 08/10/05 documented as of this encounter
--- OUTSIDE RECORDS SUMMARY | 2025-08-01 23:17 | XMS_ITS | Encounter Summary ---
Author Organization [facility] Address [address] [place] [address] Care Team Providers Care Ferry Terminal Supervisor Name Role Phone Rico Muñiz MD, Sharan Jaime Primary Care Provider Encounter Details Date Type Department Care Team (Latest Contact Info) Description 07/04/2005 Outpatient Historical [facility] Lopez Michelle [address] [place] [address] Serge Arrington MD [address] [place] [address] HYPERTENSION NOS (Primary Dx) Social History Tobacco Use Types Packs/Day Years Used Date Smoking Tobacco: Never Assessed Comments Unknown Sex and Gender Information Value Date Recorded Sex Assigned at Not on file Legal Sex Female 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
--- OUTSIDE RECORDS SUMMARY | 2025-08-01 23:17 | XMS_ITS | Encounter Summary ---
Author Organization [facility] Address [address] [place] [address] Care Team Providers Care Windlace Machine Operator Name Role Phone Rico Muñiz MD, Sharan Jaime Primary Care Provider Encounter Details Date Type Department Care Team (Latest Contact Info) Description 02/25/1999 Outpatient Historical [facility] Sharan Gómez Jr., MD [address] [place] [address] Dietary surveil/teen counselor (Primary Dx) Social History Tobacco Use Types Packs/Day Years Used Date Smoking Tobacco: Never Assessed Comments Unknown Sex and Gender Information Value Date Recorded Sex Assigned at Not on file Legal Sex Female 5:42 AM DIRECTOR OF MANAGED SERVICES Gender Identity Not on file Sexual Orientation Not on file documented as of this encounter Plan of Treatment Not on file documented as of this encounter Visit Diagnoses Diagnosis Dietary surveil/teen counselor- Primary Dietary surveillance and counseling documented in this encounter Care Teams Windlace Machine Operator Relationship Specialty Start Date End Date Sharan Gómez Jr., MD [address] [place] [address] PCP - General 08/10/05 documented as of this encounter
--- OUTSIDE RECORDS SUMMARY | 2025-08-01 23:17 | XMS_ITS | Encounter Summary ---
Author Organization [facility] Address [address] [place] [address] Care Team Providers Care City Surveyor Name Role Phone Rico Muñiz MD, Sharan Jaime Primary Care Provider Encounter Details Date Type Department Care Team (Latest Contact Info) Description 10/15/1998 Outpatient Historical [facility] Sharan Gómez Jr., MD [address] [place] [address] Unspecified essential hypertension (Primary Dx); Hypopotassemia; terminal block assembler (current) use of anticoagulants Social History Tobacco Use Types Packs/Day Years Used Date Smoking Tobacco: Never Assessed Comments Unknown Sex and Gender Information Value Date Recorded Sex Assigned at Not on file Legal Sex Female 5:42 AM RADIO TELEVISION ANNOUNCER Gender Identity Not on file Sexual Orientation Not on file documented as of this encounter Plan of Treatment Not on file documented as of this encounter Visit Diagnoses Diagnosis Unspecified essential hypertension- Primary Hypopotassemia [facility] (current) use of anticoagulants Long-term (current) use of anticoagulants documented in this encounter Care Teams City Surveyor Relationship Specialty Start Date End Date Sharan Gómez Jr., MD [address] [place] [address] PCP - General 08/10/05 documented as of this encounter
--- OUTSIDE RECORDS SUMMARY | 2025-08-01 23:17 | XMS_ITS | Encounter Summary ---
Author Organization [facility] Address [address] [facility] Attn: Epic Prelude ADT [place] [address] Care Team Providers Care Energy Systems Laboratory Director Name Role Phone Rico Muñiz MD, [...] on file Legal Sex Female 5:42 AM BULK PALLET BUILDER Gender Identity Not on file Sexual Orientation Not on file documented as of this encounter Plan of Treatment Not on file documented as of this encounter Visit Diagnoses Not on filedocumented in this encounter Care Teams Energy Systems Laboratory Director Relationship Specialty Start Date End Date Sharan Gómez Jr., MD [address] [place] [address] PCP - General 08/10/05 documented as of this encounter
--- OUTSIDE RECORDS SUMMARY | 2025-08-01 23:17 | XMS_ITS | Encounter Summary ---
Author Organization [facility] Address [address] [place] [address] Care Team Providers Care Supervisor Seaming Name Role Phone Rico Muñiz MD, Sharan Jaime Primary Care Provider Encounter Details Date Type Department Care Team (Latest Contact Info) Description 01/14/1999 Outpatient Historical [facility] Sharan Gómez Jr., MD [address] [place] [address] Spasm of muscle (Primary Dx) Social History Tobacco Use Types Packs/Day Years Used Date Smoking Tobacco: Never Assessed Comments Unknown Sex and Gender Information Value Date Recorded Sex Assigned at Not on file Legal Sex Female 5:42 AM PNEUMATIC TUBE OPERATOR Gender Identity Not on file Sexual Orientation Not on file documented as of this encounter Plan of Treatment Not on file documented as of this encounter Visit Diagnoses Diagnosis Spasm of muscle- Primary documented in this encounter Care Teams Supervisor Seaming Relationship Specialty Start Date End Date Sharan Gómez Jr., MD [address] [place] [address] PCP - General 08/10/05 documented as of this encounter
--- OUTSIDE RECORDS SUMMARY | 2025-08-01 23:17 | XMS_ITS | Encounter Summary ---
Author Organization [facility] Address [address] [place] [address] Care Team Providers Care Manufacturing Machine Operator Name Role Phone Rico Muñiz MD, Sharan Jaime Primary Care Provider Encounter Details Date Type Department Care Team (Latest Contact Info) Description 02/04/2007 Outpatient Historical [facility] Int Luis AFaisal Lopez [address] [place] [address] Serge Arrington MD [address] [place] [address] Unspecified Essential Hypertension (Primary Dx); Mitral Valve Disorder; Other and Unspecified Hyperlipidemia Social History Tobacco Use Types Packs/Day Years Used Date Smoking Tobacco: Never Assessed Comments Unknown Sex and Gender Information Value Date Recorded Sex Assigned at Not on file Legal Sex Female 5:42 AM LUNCHROOM OPERATOR Gender Identity Not on file Sexual Orientation Not on file documented as of this encounter Plan of Treatment Not on file documented as of this encounter Visit Diagnoses Diagnosis Unspecified essential hypertension- Primary Mitral valve disorder Mitral valve disorders Other and unspecified hyperlipidemia documented in this encounter Care Teams Manufacturing Machine Operator Relationship Specialty Start Date End Date Sharan Gómez Jr., MD [address] [place] [address] PCP - General 08/10/05 documented as of this encounter
--- OUTSIDE RECORDS SUMMARY | 2025-08-01 23:17 | XMS_ITS | Encounter Summary ---
Author Organization [facility] Address [address] [place] [address] Care Team Providers Care Learning Support Assistant Name Role Phone Rico Muñiz MD, Sharan Jaime Primary Care Provider Encounter Details Date Type Department Care Team (Latest Contact Info) Description 02/16/1999 Outpatient Historical [facility] Sharan Gómez Jr., MD [address] [place] [address] Unspecified essential hypertension (Primary Dx); shelter (current) use of anticoagulants Social History Tobacco Use Types Packs/Day Years Used Date Smoking Tobacco: Never Assessed Comments Unknown Sex and Gender Information Value Date Recorded Sex Assigned at Not on file Legal Sex Female 5:42 AM CLUSTER BORE OPERATOR Gender Identity Not on file Sexual Orientation Not on file documented as of this encounter Plan of Treatment Not on file documented as of this encounter Visit Diagnoses Diagnosis Unspecified essential hypertension- Primary shelter (current) use of anticoagulants Long-term (current) use of anticoagulants documented in this encounter Care Teams Learning Support Assistant Relationship Specialty Start Date End Date Sharan Gómez Jr., MD [address] [place] [address] PCP - General 08/10/05 documented as of this encounter
--- OUTSIDE RECORDS SUMMARY | 2025-08-01 23:17 | XMS_ITS | Encounter Summary ---
Author Organization [facility] Address [address] [place] [address] Care Team Providers Care Scuba Instructor Name Role Phone Rico Muñiz MD, Sharan Jaime Primary Care Provider Encounter Details Date Type Department Care Team (Latest Contact Info) Description 11/05/2003 Outpatient Historical [facility] 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
--- OUTSIDE RECORDS SUMMARY | 2025-08-01 23:17 | XMS_ITS | Encounter Summary ---
Author Organization [facility] Address [address] [place] [address] Care Team Providers Care Vehicle Maintenance Supervisor Name Role Phone Rico Muñiz MD, Sharan Jaime Primary Care Provider Encounter Details Date Type Department Care Team (Latest Contact Info) Description 09/15/1998 Outpatient Historical [facility] Sharan Gómez Jr., MD [address] [place] [address] Unspecified essential hypertension (Primary Dx); Esophagitis, unspecified; termite treater (current) use of anticoagulants; Need vaccination-viral disease Social History Tobacco Use Types Packs/Day Years Used Date Smoking Tobacco: Never Assessed Comments Unknown Sex and Gender Information Value Date Recorded Sex Assigned at Not on file Legal Sex Female 5: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 PATTERN 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 Gender Identity Not on file Sexual Orientation Not on file documented as of this encounter Plan of Treatment Not on file documented as of this encounter Visit Diagnoses Diagnosis Unspecified essential hypertension- Primary Esophagitis, unspecified termite treater (current) use of anticoagulants Long-term (current) use of anticoagulants Need vaccination-viral disease Need for prophylactic vaccination and inoculation against other viral diseases documented in this encounter Care Teams Vehicle Maintenance Supervisor Relationship Specialty Start Date End Date Sharan Gómez Jr., MD [address] [place] [phone] PCP - General 08/10/05 documented as of this encounter
--- OUTSIDE RECORDS SUMMARY | 2025-08-01 23:17 | XMS_ITS | Encounter Summary ---
Author Organization [place] Address [address] [facility] Attn: [place] [address] Care Team Providers Care Rn Home Health Name Role Phone Rico Muñiz MD, Sharan Jaime Primary Care Provider Encounter Details Date Type Department Care Team (Late st Contact Info) Description 07/23/2002 Outpatient Historical Екатерина Malone MD [address] [place] [address] Social History Tobacco Use Types Packs/Day Years Used Date Smoking Tobacco: Never Assessed Comments Unknown Sex and Gender Information Value Date Recorded Sex Assigned at Not on file Legal Sex Female 5:42 AM MYSQL DBA Gender Identity Not on file Sexual Orientation Not on file documented as of this encounter Plan of Treatment Not on file documented as of this encounter Visit Diagnoses Not on filedocumented in this encounter Care Teams Rn Home Health Relationship Specialty Start Date End Date Sharan Gómez Jr., MD [address] [place] [phone] PCP - General 08/10/05 documented as of this encounter
--- OUTSIDE RECORDS SUMMARY | 2025-08-01 23:17 | XMS_ITS | Encounter Summary ---
Author Organization [facility] Address [address] [place] [address] Care Team Providers Care Packing Machine Inspector Name Role Phone Rico Muñiz MD, Sharan Jaime Primary Care Provider Encounter Details Date Type Department Care Team (Latest Contact Info) Description 06/26/2003 Outpatient Historical [facility] Int [facility] John [address] [place] [address] Serge Arrington MD [address] [place] [address] Mitral valve disorder (Primary Dx); HYPERTENSION NOS; HYPERLIPIDEMIA NEC/NOS; VACCINE FOR STREP PNEUMONIAE Social History Tobacco Use Types Packs/Day Years Used Date Smoking Tobacco: Never Assessed Comments Unknown Sex and Gender Information Value Date Recorded Sex Assigned at Not on file Legal Sex Female 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
--- OUTSIDE RECORDS SUMMARY | 2025-08-01 23:17 | XMS_ITS | Encounter Summary ---
Author Organization [facility] Address [address] [place] [address] Care Team Providers Care Ex Chef Name Role Phone Rico Muñiz MD, Sharan Jaime Primary Care Provider Encounter Details Date Type Department Care Team (Latest Contact Info) Description 11/04/1998 Outpatient Historical [facility] Sharan Gómez Jr., MD [address] [place] [address] Acute upper respiratory infections of unspecified site (Primary Dx); Screening for other and unspecified respiratory condition; Other dyspnea and respiratory abnormality; senior living (current) use of anticoagulants Social History Tobacco Use Types Packs/Day Years Used Date Smoking Tobacco: Never Assessed Comments Unknown Sex and Gender Information Value Date Recorded Sex Assigned at Not on file Legal Sex Female 5:42 AM SAWDUST DRIER Gender Identity Not on file Sexual Orientation Not on file documented as of this encounter Plan of Treatment Not on file documented as of this encounter Visit Diagnoses Diagnosis Acute upper respiratory infections of unspecified site- Primary Screening for other and unspecified respiratory condition Other dyspnea and respiratory abnormality long term acute care registered nurse (current) use of anticoagulants Long-term (current) use of anticoagulants documented in this encounter Care Teams Ex Chef Relationship Specialty Start Date End Date Sharan Gómez Jr., MD [address] [place] [address] PCP - General 08/10/05 documented as of this encounter
--- OUTSIDE RECORDS SUMMARY | 2025-08-01 23:17 | XMS_ITS | Encounter Summary ---
Author Organization [facility] Address [address] [place] [address] Care Team Providers Care Rougher Machine Operator Name Role Phone Rico Muñiz MD, Sharan Jaime Primary Care Provider Encounter Details Date Type Department Care Team (Latest Contact Info) Description 10/27/1998 Outpatient Historical [facility] Sharan Gómez Jr., MD [address] [place] [address] Unspecified essential hypertension (Primary Dx); Chest pain, unspecified; Pneumonia, organism unspecified(486) Social History Tobacco Use Types Packs/Day Years Used Date Smoking Tobacco: Never Assessed Comments Unknown Sex and Gender Information Value Date Recorded Sex Assigned at Not on file Legal Sex Female 5:42 AM AREA DIRECTOR Gender Identity Not on file Sexual Orientation Not on file documented as of this encounter Plan of Treatment Not on file documented as of this encounter Visit Diagnoses Diagnosis Unspecified essential hypertension- Primary Chest pain, unspecified Pneumonia, organism unspecified(486) Pneumonia, organism unspecified documented in this encounter Care Teams Rougher Machine Operator Relationship Specialty Start Date End Date Sharan Gómez Jr., MD [address] [place] [address] PCP - General 08/10/05 documented as of this encounter
--- OUTSIDE RECORDS SUMMARY | 2025-08-01 23:17 | XMS_ITS | Encounter Summary ---
Author Organization [facility] Address [address] [place] [address] Care Team Providers Care Marketing Production Specialist Name Role Phone Rico Muñiz MD, Sharan Jaime Primary Care Provider Encounter Details Date Type Department Care Team (Latest Contact Info) Description 07/06/2003 Outpatient Historical [facility] [address] [place] [address] Екатерина Malone MD [address] [place] [address] AFTERCARE SHOE REPAIR COBBLER USE MEDICATN (Primary Dx) Social History Tobacco Use Types Packs/Day Years Used Date Smoking Tobacco: Never Assessed Comments Unknown Sex and Gender Information Value Date Recorded Sex Assigned at Not on file Legal Sex Female 5:42 AM COMMERCIAL LENDING VICE PRESIDENT Gender Identity Not on file Sexual Orientation Not on file documented as of this encounter Plan of Treatment Not on file documented as of this encounter Visit Diagnoses Diagnosis Encounter for long-term (current) use of other medications- Primary documented in this encounter Care Teams Marketing Production Specialist Relationship Specialty Start Date End Date Sharan Gómez Jr., MD [address] [place] [address] PCP - General 08/10/05 documented as of this encounter
--- OUTSIDE RECORDS SUMMARY | 2025-08-01 23:17 | XMS_ITS | Encounter Summary ---
Author Organization [facility] Address [address] [place] [address] Care Team Providers Care Accounts Supervisor Name Role Phone Rico Muñiz MD, Sharan Jaime Primary Care Provider Encounter Details Date Type Department Care Team (Latest Contact Info) Description 03/09/2003 Outpatient Historical [facility] [address] [place] [phone] Екатерина Malone MD [address] [place] [address] ABN BLOOD CHEMISTRY NEC (Primary Dx) Social History Tobacco Use Types Packs/Day Years Used Date Smoking Tobacco: Never Assessed Comments Unknown Sex and Gender Information Value Date Recorded Sex Assigned at Not on file Legal Sex Female 5:42 AM HOOP PUNCH OPERATOR HELPER Gender Identity Not on file Sexual Orientation Not on file documented as of this encounter Plan of Treatment Not on file documented as of this encounter Visit Diagnoses Diagnosis Other abnormal blood chemistry- Primary documented in this encounter Care Teams Accounts Supervisor Relationship Specialty Start Date End Date Sharan Gómez Jr., MD [address] [place] [address] PCP - General 08/10/05 documented as of this encounter
--- OUTSIDE RECORDS SUMMARY | 2025-08-01 23:17 | XMS_ITS | Encounter Summary ---
Author Organization [facility] Address [address] [place] [address] Care Team Providers Care Sole Leveling Machine Operator Name Role Phone Rico Muñiz MD, Sharan Jaime Primary Care Provider Encounter Details Date Type Department Care Team (Late st Contact Info) Description 10/14/2020 Lab Requisition [facility] [address] [place] [address] Paulina Peterson MD [address] [place] [address] Social History Tobacco Use Types Packs/Day Years Used Date Smoking Tobacco: Never Assessed Comments Unknown Sex and Gender Information Value Date Recorded Sex Assigned at Not on file Legal Sex Female 5:42 AM METAL CEILING HANGER Gender Identity Not on file Sexual Orientation Not on file documented as of this encounter Plan of Treatment Not on file documented as of this encounter Procedures Procedure Name Priority Date/Time Associated Diagnosis Comments PROTIME-INR Routine 10/14/2020 6:16 AM METAL CEILING HANGER documented in this encounter Results * (ABNORMAL) PROTIME-INR (10/14/2020 6:16 AM METAL CEILING HANGER) PROTIME 43.3(H) 11.9 - 15.5 Seconds 10/14/2020 4:10 PM METAL CEILING HANGER [facility] INR 4.4(H) 0.8 - 1.2 10/14/2020 4:10 PM METAL CEILING HANGER [facility] Blood Collection / Unknown 10/14/2020 6:16 AM METAL CEILING HANGER 10/14/2020 3:45 PM METAL CEILING HANGER Narrative [facility] - 10/14/2020 4:10 PM METAL CEILING HANGER Expected Values for INR: DVT/PE Goal INR 2.5; range 2.0 - 3.0 Valve Replacement Tissue Goal INR 2.5; range 2.0 - 3.0 Valve Replacement Mechanical Goal INR 3.0; range 2.5 - 3.5 POST-RI Goal INR 2.5; range 2.0 - 3.0 or Goal INR 3.0; range 2.5 - 3.5 Atrial Fibrillation Goal INR 2.5; range 2.0 - 3.0 Ischemic Stroke Goal INR 2.5; range 2.0 - 3.0 For additional information see Guidelines for Anticoagulation available from the pharmacy [facility] Paulina Peterson MD HEMATOLOGY ORDERABLES [facility] smart Result [facility] [address] [place] [address] documented in this encounter Visit Diagnoses Not on filedocumented in this encounter Care Teams Sole Leveling Machine Operator Relationship Specialty Start Date End Date Sharan Gómez Jr., MD [address] [place] [address] PCP - General 08/10/05 documented as of this encounter
--- OUTSIDE RECORDS SUMMARY | 2025-08-01 23:17 | XMS_ITS | Encounter Summary ---
Author Organization [facility] Address [address] [place] [address] Care Team Providers Care Hot Knife Cutter Name Role Phone Rico Muñiz MD, Sharan Jaime Primary Care Provider Encounter Details Date Type Department Care Team (Latest Contact Info) Description 06/26/2003 Outpatient Historical [facility] Michelle [address] [place] [address] Serge Arrington MD [address] [place] [address] HYPERTENSION NOS (Primary Dx); Routine medical exam Social History Tobacco Use Types Packs/Day Years Used Date Smoking Tobacco: Never Assessed Comments Unknown Sex and Gender Information Value Date Recorded Sex Assigned at Not on file Legal Sex Female 5:42 AM GILL BOX FIXER Gender Identity Not on file Sexual Orientation Not on file documented as of this encounter Plan of Treatment Not on file documented as of this encounter Visit Diagnoses Diagnosis Unspecified essential hypertension- Primary Routine medical exam Routine general medical examination at a health care facility documented in this encounter Care Teams Hot Knife Cutter Relationship Specialty Start Date End Date Sharan Gómez Jr., MD [address] [place] [address] PCP - General 08/10/05 documented as of this encounter
--- OUTSIDE RECORDS SUMMARY | 2025-08-01 23:17 | XMS_ITS | Encounter Summary ---
Author Organization [facility] Address [address] [place] [address] Care Team Providers Care Production Foreman Name Role Phone Rico Muñiz MD, Sharan Jaime Primary Care Provider Encounter Details Date Type Department Care Team (Latest Contact Info) Description 12/13/1998 Outpatient Historical [facility] Sharan Gómez Jr., MD [address] [place] [address] Acute upper respiratory infections of unspecified site (Primary Dx); termination clerk (current) use of anticoagulants Social History Tobacco Use Types Packs/Day Years Used Date Smoking Tobacco: Never Assessed Comments Unknown Sex and Gender Information Value Date Recorded Sex Assigned at Not on file Legal Sex Female 5:42 AM MERCHANDISING ASSISTANT Gender Identity Not on file Sexual Orientation Not on file documented as of this encounter Plan of Treatment Not on file documented as of this encounter Visit Diagnoses Diagnosis Acute upper respiratory infections of unspecified site- Primary termination clerk (current) use of anticoagulants Long-term (current) use of anticoagulants documented in this encounter Care Teams Production Foreman Relationship Specialty Start Date End Date Sharan Gómez Jr., MD [address] [place] [address] PCP - General 08/10/05 documented as of this encounter
--- OUTSIDE RECORDS SUMMARY | 2025-08-01 23:17 | XMS_ITS | Encounter Summary ---
Author Organization [facility] Address [address] [place] [address] Care Team Providers Care Gizzard Puller Name Role Phone Rico Muñiz MD, Sharan Jaime Primary Care Provider Encounter Details Date Type Department Care Team (Latest Contact Info) Description 06/29/2004 Outpatient Historical [facility] Int [facility] Lopez [address] [place] [address] Serge Arrington MD [address] [place] [address] Mitral valve disorder (Primary Dx); HYPERTENSION NOS; HYPERLIPIDEMIA NEC/NOS; OSTEOPOROSIS NOS Social History Tobacco Use Types Packs/Day Years Used Date Smoking Tobacco: Never Assessed Comments Unknown Sex and Gender Information Value Date Recorded Sex Assigned at Not on file Legal Sex Female 5:42 AM SHELTERED WORKSHOP EXECUTIVE DIRECTOR Gender Identity Not on file Sexual Orientation Not on file documented as of this encounter Plan of Treatment Not on file documented as of this encounter Visit Diagnoses Diagnosis Mitral valve disorder- Primary Mitral valve disorders Unspecified essential hypertension Other and unspecified hyperlipidemia Osteoporosis, unspecified documented in this encounter Care Teams Gizzard Puller Relationship Specialty Start Date End Date Sharan Gómez Jr., MD [address] [place] [phone] PCP - General 08/10/05 documented as of this encounter
--- OUTSIDE RECORDS SUMMARY | 2025-08-01 23:18 | XMS_ITS | Encounter Summary ---
Author Organization [facility] Address [address] [place] [address] Care Team Providers Care Senior Quality Manager Name Role Phone Rico Muñiz MD, Sharan Jaime Primary Care Provider Encounter Details Date Type Department Care Team (Latest Contact Info) Description 08/05/2001 Outpatient Historical [facility] Sharan Gómez Jr., MD [address] [place] [address] Generalized anxiety disorder (Primary Dx); Hypopotassemia Social History Tobacco Use Types Packs/Day Years Used Date Smoking Tobacco: Never Assessed Comments Unknown Sex and Gender Information Value Date Recorded Sex Assigned at Not on file Legal Sex Female 5:42 AM CHALK TESTER Gender Identity Not on file Sexual Orientation Not on file documented as of this encounter Plan of Treatment Not on file documented as of this encounter Visit Diagnoses Diagnosis Generalized anxiety disorder- Primary Hypopotassemia documented in this encounter Care Teams Senior Quality Manager Relationship Specialty Start Date End Date Sharan Gómez Jr., MD [address] [place] [address] PCP - General 08/10/05 documented as of this encounter
--- OUTSIDE RECORDS SUMMARY | 2025-08-01 23:18 | XMS_ITS | Encounter Summary ---
Author Organization [facility] Address [address] [place] [address] Care Team Providers Care Director Of Medicare Name Role Phone Rico Muñiz MD, Sharan Jaime Primary Care Provider Encounter Details Date Type Department Care Team (Latest Contact Info) Description 11/14/2001 Outpatient Historical [facility] Sharan Gómez Jr., MD [address] [place] [address] OSTEOARTHROS NOS-UNSPEC (Primary Dx); HEART VALVE REPLAC NEC Social History Tobacco Use Types Packs/Day Years Used Date Smoking Tobacco: Never Assessed Comments Unknown Sex and Gender Information Value Date Recorded Sex Assigned at Not on file Legal Sex Female 5:42 AM CORRUGATED FASTENER DRIVER Gender Identity Not on file Sexual Orientation Not on file documented as of this encounter Plan of Treatment Not on file documented as of this encounter Visit Diagnoses Diagnosis Osteoarthrosis, unspecified whether generalized or localized, unspecified site- Primary Heart valve replaced by other means documented in this encounter Care Teams Director Of Medicare Relationship Specialty Start Date End Date Sharan Gómez Jr., MD [address] [place] [address] PCP - General 08/10/05 documented as of this encounter
--- OUTSIDE RECORDS SUMMARY | 2025-08-01 23:18 | XMS_ITS | Encounter Summary ---
Author Organization [facility] Address [address] [place] [address] Care Team Providers Care Academic Support Director Name Role Phone Rico Muñiz MD, Sharan Jaime Primary Care Provider Encounter Details Date Type Department Care Team (Latest Contact Info) Description 07/04/2005 Outpatient Historical [facility] Int Luis AFais[facility] Lopez [address] [place] [address] Serge Arrington MD [address] [place] [address] Mitral valve disorder (Primary Dx); HYPERTENSION NOS; ABN FIND-STOOL CONTENTS-OCC BLOOD; SCREENING MAL NEOP-CERVIX Social History Tobacco Use Types Packs/Day Years Used Date Smoking Tobacco: Never Assessed Comments Unknown Sex and Gender Information Value Date Recorded Sex Assigned at Not on file Legal Sex Female 5:42 AM MOLD DRESSER Gender Identity Not on file Sexual Orientation Not on file documented as of this encounter Plan of Treatment Not on file documented as of this encounter Visit Diagnoses Diagnosis Mitral valve disorder- Primary Mitral valve disorders Unspecified essential hypertension Nonspecific abnormal finding in stool contents Screening for malignant neoplasm of the cervix documented in this encounter Care Teams Academic Support Director Relationship Specialty Start Date End Date Sharan Gómez Jr., MD [address] [place] [address] PCP - General 08/10/05 documented as of this encounter
--- OUTSIDE RECORDS SUMMARY | 2025-08-01 23:18 | XMS_ITS | Encounter Summary ---
Author Organization [facility] Address [address] [place] [address] Care Team Providers Care Junior Network Administrator Name Role Phone Rico Muñiz MD, Sharan Jaime Primary Care Provider Encounter Details Date Type Department Care Team (Late st Contact Info) Description 10/15/2020 Lab Requisition [facility] Laboratory Services [address] [place] [address] Paulina Peterson MD [address] [place] [address] Social History Tobacco Use Types Packs/Day Years Used Date Smoking Tobacco: Never Assessed Comments Unknown Sex and Gender Information Value Date Recorded Sex Assigned at Not on file Legal Sex Female 5:42 AM MUD ANALYSIS OPERATOR Gender Identity Not on file Sexual Orientation Not on file documented as of this encounter Plan of Treatment Not on file documented as of this encounter Procedures Procedure Name Priority Date/Time Associated Diagnosis Comments PROTIME-INR Routine 10/15/2020 4:40 AM MUD ANALYSIS OPERATOR documented in this encounter Results * (ABNORMAL) PROTIME-INR (10/15/2020 4:40 AM MUD ANALYSIS OPERATOR) PROTIME 46.6(H) 11.9 - 15.5 Seconds 10/15/2020 4:26 PM MUD ANALYSIS OPERATOR [facility] INR 4.9(H) 0.8 - 1.2 10/15/2020 4:26 PM MUD ANALYSIS OPERATOR [facility] Blood Collection / Unknown 10/15/2020 4:40 AM MUD ANALYSIS OPERATOR 10/15/2020 4:01 PM MUD ANALYSIS OPERATOR Narrative [facility] - 10/15/2020 4:26 PM MUD ANALYSIS OPERATOR Expected Values for INR: DVT/PE Goal [...] Peterson MD HEMATOLOGY ORDERABLES Maame smart Result [facility] [address] [place] [address] documented in this encounter Visit Diagnoses Not on filedocumented in this encounter Care Teams Junior Network Administrator Relationship Specialty Start Date End Date Sharan Gómez Jr., MD [address] [place] [address] PCP - General 08/10/05 documented as of this encounter
--- OUTSIDE RECORDS SUMMARY | 2025-08-01 23:18 | XMS_ITS | Encounter Summary ---
Author Organization [facility] Address [address] [place] [address] Care Team Providers Care Case Reviewer Name Role Phone Rico Muñiz MD, Sharan Jaime Primary Care Provider Encounter Details Date Type Department Care Team (Latest Contact Info) Description 06/24/2001 Outpatient Historical [facility] Imaging Services-Faisal Lopez Michelle [address] [place] [address] Serge Arrington MD [address] [place] [address] Unspecified congenital anomaly of heart (Primary Dx) Social History Tobacco Use Types Packs/Day Years Used Date Smoking Tobacco: Never Assessed Comments Unknown Sex and Gender Information Value Date Recorded Sex Assigned at Not on file Legal Sex Female 5:42 AM BUDGET ANALYST Gender Identity Not on file Sexual Orientation Not on file documented as of this encounter Plan of Treatment Not on file documented as of this encounter Visit Diagnoses Diagnosis Unspecified congenital anomaly of heart- Primary documented in this encounter Care Teams Case Reviewer Relationship Specialty Start Date End Date Sharan Gómez Jr., MD [address] [place] [address] PCP - General 08/10/05 documented as of this encounter
--- OUTSIDE RECORDS SUMMARY | 2025-08-01 23:18 | XMS_ITS | Encounter Summary ---
Author Organization [facility] Address [address] [facility] Attn: [place] [address] Care Team Providers Care Product Development Name Role Phone Rico Muñiz MD, Sharan Jaime Primary Care Provider Encounter Details Date Type Department Care Team (Late st Contact Info) Description 08/05/2001 Outpatient Historical Sharan Gómez Jr., MD [address] [place] [address] Social History Tobacco Use Types Packs/Day Years Used Date Smoking Tobacco: Never Assessed Comments Unknown Sex and Gender Information Value Date Recorded Sex Assigned at Not on file Legal Sex Female 5:42 AM CSM CONSULTANT Gender Identity Not on file Sexual Orientation Not on file documented as of this encounter Plan of Treatment Not on file documented as of this encounter Visit Diagnoses Not on filedocumented in this encounter Care Teams Product Development Relationship Specialty Start Date End Date Sharan Gómez Jr., MD [address] [place] [address] PCP - General 08/10/05 documented as of this encounter
--- OUTSIDE RECORDS SUMMARY | 2025-08-01 23:18 | XMS_ITS | Encounter Summary ---
Author Organization [facility] Address [address] [place] [address] Care Team Providers Care Production Assembly Supervisor Name Role Phone Rico Muñiz MD, Sharan Jaime Primary Care Provider Encounter Details Date Type Department Care Team (Latest Contact Info) Description 11/28/2001 Outpatient Historical [facility] Sharan Gómez Jr., MD [address] [place] [address] URIN TRACT INFECTION NOS (Primary Dx); AFTERCARE PENITENTIARY ANTICOAG USE Social History Tobacco Use Types Packs/Day Years Used Date Smoking Tobacco: Never Assessed Comments Unknown Sex and Gender Information Value Date Recorded Sex Assigned at Not on file Legal Sex Female 5:42 AM MINUTE CLERK FOR BASIC TRAFFIC Gender Identity Not on file Sexual Orientation Not on file documented as of this encounter Plan of Treatment Not on file documented as of this encounter Visit Diagnoses Diagnosis Urinary tract infection, site not specified- Primary intermediate accountant (current) use of anticoagulants Long-term (current) use of anticoagulants documented in this encounter Care Teams Production Assembly Supervisor Relationship Specialty Start Date End Date Sharan Gómez Jr., MD [address] [facility] [place] [address] PCP - General 08/10/05 documented as of this encounter
--- OUTSIDE RECORDS SUMMARY | 2025-08-01 23:18 | XMS_ITS | Encounter Summary ---
Author Organization [facility] Address [address] [place] [address] Care Team Providers Care Transmitter Supervisor Name Role Phone Rico Muñiz MD, Sharan Jaime Primary Care Provider Encounter Details Date Type Department Care Team (Late st Contact Info) Description 06/24/2001 Outpatient Historical [facility] Serge Arrington MD [address] [facility] [address] [place] [address] Unspecified essential hypertension (Primary Dx); Other and unspecified hyperlipidemia Social History Tobacco Use Types Packs/Day Years Used Date Smoking Tobacco: Never Assessed Comments Unknown Sex and Gender Information Value Date Recorded Sex Assigned at Not on file Legal Sex Female 5:42 AM REVENUE INVESTIGATOR Gender Identity Not on file Sexual Orientation Not on file documented as of this encounter Plan of Treatment Not on file documented as of this encounter Visit Diagnoses Diagnosis Unspecified essential hypertension- Primary Other and unspecified hyperlipidemia documented in this encounter Care Teams Transmitter Supervisor Relationship Specialty Start Date End Date Sharan Gómez Jr., MD [address] [place] [address] PCP - General 08/10/05 documented as of this encounter
--- OUTSIDE RECORDS SUMMARY | 2025-08-01 23:18 | XMS_ITS | Encounter Summary ---
Author Organization [facility] Address [address] [place] [address] Care Team Providers Care Teacher Lip Reading Name Role Phone Rico Muñiz MD, Sharan Jaime Primary Care Provider Encounter Details Date Type Department Care Team (Latest Contact Info) Description 07/04/2005 Outpatient Historical [facility] [place] [facility] Int [facility] John [address] [place] [address] Serge Arrington MD [address] [place] [address] ROUTINE MOLDED GOODS CONTROLS OPERATOR EXAMINATION (Primary Dx) Social History Tobacco Use Types Packs/Day Years Used Date Smoking Tobacco: Never Assessed Comments Unknown Sex and Gender Information Value Date Recorded Sex Assigned at Not on file Legal Sex Female 5:42 AM USER EXPERIENCE TEAM LEAD Gender Identity Not on file Sexual Orientation Not on file documented as of this encounter Plan of Treatment Not on file documented as of this encounter Visit Diagnoses Diagnosis Routine gynecological examination- Primary documented in this encounter Care Teams Teacher Lip Reading Relationship Specialty Start Date End Date Sharan Gómez Jr., MD [address] [place] [address] PCP - General 08/10/05 documented as of this encounter
--- OUTSIDE RECORDS SUMMARY | 2025-08-01 23:18 | XMS_ITS | Encounter Summary ---
Author Organization [facility] Address [address] [place] [address] Care Team Providers Care Pottery Kiln Builder Name Role Phone Rico Muñiz MD, Sharan Jaime Primary Care Provider Encounter Details Date Type Department Care Team (Latest Contact Info) Description 06/24/2001 Outpatient Historical [facility] Int Luis AFaisal Lopez Michelle[address] [place] [address] Serge Arrington MD [address] [place] [address] Mitral valve disorder (Primary Dx); Unspecified essential hypertension; Other and unspecified hyperlipidemia; Dizziness and giddiness Social History Tobacco Use Types Packs/Day Years Used Date Smoking Tobacco: Never Assessed Comments Unknown Sex and Gender Information Value Date Recorded Sex Assigned at Not on file Legal Sex Female 5:42 AM HUMAN SERVICE WORKER Gender Identity Not on file Sexual Orientation Not on file documented as of this encounter Plan of Treatment Not on file documented as of this encounter Visit Diagnoses Diagnosis Mitral valve disorder- Primary Mitral valve disorders Unspecified essential hypertension Other and unspecified hyperlipidemia Dizziness and giddiness documented in this encounter Care Teams Pottery Kiln Builder Relationship Specialty Start Date End Date Sharan Gómez Jr., MD [address] [place] [address] PCP - General 08/10/05 documented as of this encounter
--- OUTSIDE RECORDS SUMMARY | 2025-08-01 23:18 | XMS_ITS | Encounter Summary ---
Author Organization [facility] Address [address] [place] [address] Care Team Providers Care Bundle Collector Name Role Phone Rico Muñiz MD, Sharan Jaime Primary Care Provider Encounter Details Date Type Department Care Team (Latest Contact Info) Description 07/06/2006 Outpatient Historical [facility] John [facility] [address] [place] [address] Jennifer Cash MD NO ADDRESS ON FILE Unspecified Essential Hypertension (Primary Dx); Other and Unspecified Hyperlipidemia; Hypercalcemia; Routine Medical Exam Social History Tobacco Use Types Packs/Day Years Used Date Smoking Tobacco: Never Assessed Comments Unknown Sex and Gender Information Value Date Recorded Sex Assigned at Not on file Legal Sex Female 5:42 AM DIRECTOR FUNDS DEVELOPMENT Gender Identity Not on file Sexual Orientation Not on file documented as of this encounter Plan of Treatment Not on file documented as of this encounter Visit Diagnoses Diagnosis Unspecified essential hypertension- Primary Other and unspecified hyperlipidemia Hypercalcemia Routine medical exam Routine general medical examination at a health care facility documented in this encounter Care Teams Bundle Collector Relationship Specialty Start Date End Date Sharan Gómez Jr., MD [address] [place] [address] PCP - General 08/10/05 documented as of this encounter
--- OUTSIDE RECORDS SUMMARY | 2025-08-01 23:18 | XMS_ITS | Encounter Summary ---
Author Organization [facility] Address [address] [place] [address] Care Team Providers Care Dope Weigh Operator Name Role Phone Rico Muñiz MD, Sharan Jaime Primary Care Provider Encounter Details Date Type Department Care Team (Latest Contact Info) Description 06/28/2001 Outpatient Historical [facility] Sharan Gómez Jr., MD [address] [place] [address] Esophageal reflux (Primary Dx); Heart valve replaced by other means Social History Tobacco Use Types Packs/Day Years Used Date Smoking Tobacco: Never Assessed Comments Unknown Sex and Gender Information Value Date Recorded Sex Assigned at Not on file Legal Sex Female 5:42 AM CONTINUOUS IMPROVEMENT ANALYST Gender Identity Not on file Sexual Orientation Not on file documented as of this encounter Plan of Treatment Not on file documented as of this encounter Visit Diagnoses Diagnosis Esophageal reflux- Primary Heart valve replaced by other means documented in this encounter Care Teams Dope Weigh Operator Relationship Specialty Start Date End Date Sharan Gómez Jr., MD [address] [place] [address] PCP - General 08/10/05 documented as of this encounter
--- OUTSIDE RECORDS SUMMARY | 2025-08-01 23:18 | XMS_ITS | Encounter Summary ---
Author Organization [facility] Address [address] [facility] Attn: [place] [address] Care Team Providers Care Engine Emission Technician Name Role Phone Rico Muñiz MD, Sharan Jaime Primary Care Provider Encounter Details Date Type Department Care Team (Late st Contact Info) Description 05/16/2001 Outpatient Historical Sharan Gómez Jr., MD [address] [place] [address] Social History Tobacco Use Types Packs/Day Years Used Date Smoking Tobacco: Never Assessed Comments Unknown Sex and Gender Information Value Date Recorded Sex Assigned at Not on file Legal Sex Female 5:42 AM SPACE SCIENCES DIRECTOR Gender Identity Not on file Sexual Orientation Not on file documented as of this encounter Plan of Treatment Not on file documented as of this encounter Visit Diagnoses Not on filedocumented in this encounter Care Teams Engine Emission Technician Relationship Specialty Start Date End Date Sharan Gómez Jr., MD [address] [place] [address] PCP - General 08/10/05 documented as of this encounter
--- OUTSIDE RECORDS SUMMARY | 2025-08-01 23:18 | XMS_ITS | Encounter Summary ---
Author Organization [facility] Address [address] [place] [address] Care Team Providers Care Security Program Manager Name Role Phone Rico Muñiz MD, Sharan Jaime Primary Care Provider Encounter Details Date Type Department Care Team (Latest Contact Info) Description 07/02/2001 Outpatient Historical [facility] Echocardiography - National [address] [place] [address] X358 Social History Tobacco Use Types Packs/Day Years Used Date Smoking Tobacco: Never Assessed Comments Unknown Sex and Gender Information Value Date Recorded Sex Assigned at Not on file Legal Sex Female 5:42 AM RN MEDICAL SURGICAL Gender Identity Not on file Sexual Orientation Not on file documented as of this encounter Plan of Treatment Not on file documented as of this encounter Visit Diagnoses Not on filedocumented in this encounter Care Teams Security Program Manager Relationship Specialty Start Date End Date Sharan Gómez Jr., MD [address] [place] [address] PCP - General 08/10/05 documented as of this encounter
--- OUTSIDE RECORDS SUMMARY | 2025-08-01 23:18 | XMS_ITS | Encounter Summary ---
Author Organization [facility] Address [address] [place] [address] Care Team Providers Care Logging Assistant Name Role Phone Rico Muñiz MD, Sharan Jaime Primary Care Provider Encounter Details Date Type Department Care Team (Late st Contact Info) Description 07/02/2001 Outpatient Historical [facility] Serge Arrington MD [address] [facility] [address] [place] [address] Encounter for long-term (current) use of other medications (Primary Dx); Unspecified essential hypertension Social History Tobacco Use Types Packs/Day Years Used Date Smoking Tobacco: Never Assessed Comments Unknown Sex and Gender Information Value Date Recorded Sex Assigned at Not on file Legal Sex Female 5:42 AM ASPHALT SPREADER Gender Identity Not on file Sexual Orientation Not on file documented as of this encounter Plan of Treatment Not on file documented as of this encounter Visit Diagnoses Diagnosis Encounter for long-term (current) use of other medications- Primary Unspecified essential hypertension documented in this encounter Care Teams Logging Assistant Relationship Specialty Start Date End Date Sharan Gómez Jr., MD [address] [place] [address] PCP - General 08/10/05 documented as of this encounter
--- OUTSIDE RECORDS SUMMARY | 2025-08-01 23:18 | XMS_ITS | Encounter Summary ---
Author Organization [facility] Address [address] [place] [address] Care Team Providers Care School Bus Inspector Name Role Phone Rico Muñiz MD, Sharan Jaime Primary Care Provider Encounter Details Date Type Department Care Team (Latest Contact Info) Description 05/16/2001 Outpatient Historical [facility] Sharan Gómez Jr., MD [address] [place] [address] Unspecified essential hypertension (Primary Dx); long-term (current) use of anticoagulants Social History Tobacco Use Types Packs/Day Years Used Date Smoking Tobacco: Never Assessed Comments Unknown Sex and Gender Information Value Date Recorded Sex Assigned at Not on file Legal Sex Female 5:42 AM SHRIMP TRAWLER Gender Identity Not on file Sexual Orientation Not on file documented as of this encounter Plan of Treatment Not on file documented as of this encounter Visit Diagnoses Diagnosis Unspecified essential hypertension- Primary long-term (current) use of anticoagulants Long-term (current) use of anticoagulants documented in this encounter Care Teams School Bus Inspector Relationship Specialty Start Date End Date Sharan Gómez Jr., MD [address] [place] [address] PCP - General 08/10/05 documented as of this encounter
--- OUTSIDE RECORDS SUMMARY | 2025-08-01 23:18 | XMS_ITS | Encounter Summary ---
Author Organization [facility] Address [address] [place] [address] Care Team Providers Care Game Breeding Farm Manager Name Role Phone Rico Muñiz MD, Sharan Jaime Primary Care Provider Encounter Details Date Type Department Care Team (Latest Contact Info) Description 04/19/2001 Outpatient Historical [facility] Arun Nichols NO ADDRESS ON FILE Contusion of hand(s) (Primary Dx) Social History Tobacco Use Types Packs/Day Years Used Date Smoking Tobacco: Never Assessed Comments Unknown Sex and Gender Information Value Date Recorded Sex Assigned at Not on file Legal Sex Female 5:42 AM SLATER APPRENTICE Gender Identity Not on file Sexual Orientation Not on file documented as of this encounter Plan of Treatment Not on file documented as of this encounter Visit Diagnoses Diagnosis Contusion of hand(s)- Primary documented in this encounter Care Teams Game Breeding Farm Manager Relationship Specialty Start Date End Date Sharan Gómez Jr., MD [address] [place] [address] PCP - General 08/10/05 documented as of this encounter
[2025-08-01 23:19] VITALS: BP 134/86; PULSE 83; RESP 16; TEMP 36.6; O2SAT 93
--- OUTSIDE RECORDS SUMMARY | 2025-08-01 23:19 | XMS_ITS | Encounter Summary ---
Author Organization [facility] Address [address] [place] [address] Care Team Providers Care Bacteriology Teacher Name Role Phone Rico Muñiz MD, Sharan Jaime Primary Care Provider Encounter Details Date Type Department Care Team (Latest Contact Info) Description 03/03/2002 Outpatient Historical [facility] Sharan Gómez Jr., MD [address] [place] [address] HYPERTENSION NOS (Primary Dx); ENDOCARDITIS NOS; AFTERCARE PRISON ANTICOAG USE; FAMILY HX-DIABETES MELLITUS Social History Tobacco Use Types Packs/Day Years Used Date Smoking Tobacco: Never Assessed Comments Unknown Sex and Gender Information Value Date Recorded Sex Assigned at Not on file Legal Sex Female 5:42 AM VOCATIONAL REHABILITATION SUPERVISOR Gender Identity Not on file Sexual Orientation Not on file documented as of this encounter Plan of Treatment Not on file documented as of this encounter Visit Diagnoses Diagnosis Unspecified essential hypertension- Primary Endocarditis, valve unspecified, unspecified cause custodial (current) use of anticoagulants Long-term (current) use of anticoagulants Family history of diabetes mellitus documented in this encounter Care Teams Bacteriology Teacher Relationship Specialty Start Date End Date Sharan Gómez Jr., MD [address] [place] [address] PCP - General 08/10/05 documented as of this encounter
--- OUTSIDE RECORDS SUMMARY | 2025-08-01 23:19 | XMS_ITS | Encounter Summary ---
Author Organization [facility] Address [address] [place] [address] Care Team Providers Care Auto Body Man Name Role Phone Rico Muñiz MD, Sharan Jaime Primary Care Provider Encounter Details Date Type Department Care Team (Latest Contact Info) Description 08/31/2000 Outpatient Historical [facility] Sharan Gómez Jr., MD [address] [place] [address] Pure hypercholesterolem (Primary Dx); Dietary surveil/res counselor Social History Tobacco Use Types Packs/Day Years Used Date Smoking Tobacco: Never Assessed Comments Unknown Sex and Gender Information Value Date Recorded Sex Assigned at Not on file Legal Sex Female 5:42 AM FUTURES TRADER Gender Identity Not on file Sexual Orientation Not on file documented as of this encounter Plan of Treatment Not on file documented as of this encounter Visit Diagnoses Diagnosis Pure hypercholesterolem- Primary Pure hypercholesterolemia Dietary surveil/res counselor Dietary surveillance and counseling documented in this encounter Care Teams Auto Body Man Relationship Specialty Start Date End Date Sharan Gómez Jr., MD [address] [place] [address] PCP - General 08/10/05 documented as of this encounter
--- OUTSIDE RECORDS SUMMARY | 2025-08-01 23:19 | XMS_ITS | Encounter Summary ---
Author Organization [facility] Address [address] [place] [address] Care Team Providers Care Dean Of Admissions Name Role Phone Rico Muñiz MD, Sharan Jaime Primary Care Provider Encounter Details Date Type Department Care Team (Latest Contact Info) Description 01/03/2002 Outpatient Historical [facility] Sharan Gómez Jr., MD [address] [place] [address] FLU W RESP MANIFEST NEC (Primary Dx); AFTERCARE SPORTS ANNOUNCER ANTICOAG USE Social History Tobacco Use Types Packs/Day Years Used Date Smoking Tobacco: Never Assessed Comments Unknown Sex and Gender Information Value Date Recorded Sex Assigned at Not on file Legal Sex Female 5:42 AM CHEMISTRY DEPARTMENT CHAIR Gender Identity Not on file Sexual Orientation Not on file documented as of this encounter Plan of Treatment Not on file documented as of this encounter Visit Diagnoses Diagnosis Influenza with other respiratory manifestations- Primary [facility] (current) use of anticoagulants Long-term (current) use of anticoagulants documented in this encounter Care Teams Dean Of Admissions Relationship Specialty Start Date End Date Sharan Gómez Jr., MD [address] [place] [address] PCP - General 08/10/05 documented as of this encounter
--- OUTSIDE RECORDS SUMMARY | 2025-08-01 23:19 | XMS_ITS | Encounter Summary ---
Author Organization [facility] Address [address] [place] [address] Care Team Providers Care Woven Wood Shade Assembler Name Role Phone Rico Muñiz MD, Sharan Jaime Primary Care Provider Encounter Details Date Type Department Care Team (Latest Contact Info) Description 06/18/1998 Outpatient Historical [facility] Int Luis AFaisal Lopez [address] [place] [phone] Serge Arrington MD [address] [place] [address] Mitral valve disorder (Primary Dx); Unspecified essential hypertension; Hematuria; Routine medical exam Social History Tobacco Use Types Packs/Day Years Used Date Smoking Tobacco: Never Assessed Comments Unknown Sex and Gender Information Value Date Recorded Sex Assigned at Not on file Legal Sex Female 5:42 AM SPECIAL EDUCATION ASSISTANT Gender Identity Not on file Sexual Orientation Not on file documented as of this encounter Plan of Treatment Not on file documented as of this encounter Visit Diagnoses Diagnosis Mitral valve disorder- Primary Mitral valve disorders Unspecified essential hypertension Hematuria Routine medical exam Routine general medical examination at a health care facility documented in this encounter Care Teams Woven Wood Shade Assembler Relationship Specialty Start Date End Date Sharan Gómez Jr., MD [address] [place] [id number] PCP - General 08/10/05 documented as of this encounter
--- OUTSIDE RECORDS SUMMARY | 2025-08-01 23:19 | XMS_ITS | Encounter Summary ---
Author Organization [facility] Address [address] [place] [address] Care Team Providers Care Analytical Data Scientist Name Role Phone Rico Muñiz MD, Sharan Jaime Primary Care Provider Encounter Details Date Type Department Care Team (Latest Contact Info) Description 04/07/2002 Outpatient Historical [facility] Sharan Gómez Jr., MD [address] [place] [address] ENDOCARDITIS NOS (Primary Dx); DIABETES UNCOMPL ADULT-TYPE II (CMS/HCC); HYPERTENSION NOS; AFTERCARE PRODUCTION WORKER ANTICOAG USE Social History Tobacco Use Types Packs/Day Years Used Date Smoking Tobacco: Never Assessed Comments Unknown Sex and Gender Information Value Date Recorded Sex Assigned at Not on file Legal Sex Female 5:42 AM SUPERVISOR OFFSET PLATE PREPARATION Gender Identity Not on file Sexual Orientation Not on file documented as of this encounter Plan of Treatment Not on file documented as of this encounter Visit Diagnoses Diagnosis Endocarditis, valve unspecified, unspecified cause- Primary Type II or unspecified type diabetes mellitus without mention of complication, not stated as uncontrolled Unspecified essential hypertension intermediate card tender (current) use of anticoagulants Long-term (current) use of anticoagulants documented in this encounter Care Teams Analytical Data Scientist Relationship Specialty Start Date End Date Sharan Gómez Jr., MD [address] [place] [address] PCP - General 08/10/05 documented as of this encounter
--- OUTSIDE RECORDS SUMMARY | 2025-08-01 23:19 | XMS_ITS | Encounter Summary ---
Author Organization [facility] Address [address] [place] [address] Care Team Providers Care Highway Maintenance Worker Name Role Phone Rico Muñiz MD, Sharan Jaime Primary Care Provider Encounter Details Date Type Department Care Team (Latest Contact Info) Description 07/06/[address] [facility] Imaging Services-Faisal Lopez Michelle [address] [place] [phone] Jennifer Cash MD NO ADDRESS ON FILE Unspecified Essential Hypertension (Primary Dx); Other Chest Pain Social History Tobacco Use Types Packs/Day Years Used Date Smoking Tobacco: Never Assessed Comments Unknown Sex and Gender Information Value Date Recorded Sex Assigned at Not on file Legal Sex Female 5:42 AM PHYSICIAN RELATIONS REPRESENTATIVE Gender Identity Not on file Sexual Orientation Not on file documented as of this encounter Plan of Treatment Not on file documented as of this encounter Visit Diagnoses Diagnosis Unspecified essential hypertension- Primary Other chest pain documented in this encounter Care Teams Highway Maintenance Worker Relationship Specialty Start Date End Date Sharan Gómez Jr., MD [address] [place] [address] PCP - General 08/10/05 documented as of this encounter
--- OUTSIDE RECORDS SUMMARY | 2025-08-01 23:19 | XMS_ITS | Encounter Summary ---
Author Organization [facility] Address [address] [place] [address] Care Team Providers Care Treating And Pumping Supervisor Name Role Phone Rico Muñiz MD, Sharan Jaime Primary Care Provider Encounter Details Date Type Department Care Team (Late st Contact Info) Description 06/21/2000 Outpatient Historical [facility] Serge Arrington MD [address] [facility] [address] [place] [phone] Unspecified essential hypertension (Primary Dx); Mitral valve disorder; correction (current) use of anticoagulants Social History Tobacco Use Types Packs/Day Years Used Date Smoking Tobacco: Never Assessed Comments Unknown Sex and Gender Information Value Date Recorded Sex Assigned at Not on file Legal Sex Female 5:42 AM PHONOGRAPH NEEDLE TIP MAKER Gender Identity Not on file Sexual Orientation Not on file documented as of this encounter Plan of Treatment Not on file documented as of this encounter Visit Diagnoses Diagnosis Unspecified essential hypertension- Primary Mitral valve disorder Mitral valve disorders intermediate designer (current) use of anticoagulants Long-term (current) use of anticoagulants documented in this encounter Care Teams Treating And Pumping Supervisor Relationship Specialty Start Date End Date Sharan Gómez Jr., MD [address] [place] [address] PCP - General 08/10/05 documented as of this encounter
--- OUTSIDE RECORDS SUMMARY | 2025-08-01 23:19 | XMS_ITS | Encounter Summary ---
Author Organization [facility] Address [address] [place] [address] Care Team Providers Care Service Writer Advisor Name Role Phone Rico Muñiz MD, Sharan Jaime Primary Care Provider Encounter Details Date Type Department Care Team (Latest Contact Info) Description 02/03/2002 Outpatient Historical [facility] Sharan Gómez Jr., MD [address] [place] [address] HEART VALVE REPLAC NEC (Primary Dx); AFTERCARE CUSTODIAL ANTICOAG USE Social History Tobacco Use Types Packs/Day Years Used Date Smoking Tobacco: Never Assessed Comments Unknown Sex and Gender Information Value Date Recorded Sex Assigned at Not on file Legal Sex Female 5:42 AM SKIVER WELT END Gender Identity Not on file Sexual Orientation Not on file documented as of this encounter Plan of Treatment Not on file documented as of this encounter Visit Diagnoses Diagnosis Heart valve replaced by other means- Primary custodial (current) use of anticoagulants Long-term (current) use of anticoagulants documented in this encounter Care Teams Service Writer Advisor Relationship Specialty Start Date End Date Sharan Gómez Jr., MD [address] [place] [address] PCP - General 08/10/05 documented as of this encounter
--- OUTSIDE RECORDS SUMMARY | 2025-08-01 23:19 | XMS_ITS | Encounter Summary ---
Author Organization [facility] Address [address] [place] [address] Care Team Providers Care Systems Software Designer Name Role Phone Rico Muñiz MD, Sharan Jaime Primary Care Provider Encounter Details Date Type Department Care Team (Late st Contact Info) Description 07/30/2000 Outpatient Historical [facility] Social History Tobacco Use Types Packs/Day Years Used Date Smoking Tobacco: Never Assessed Comments Unknown Sex and Gender Information Value Date Recorded Sex Assigned at Not on file Legal Sex Female 5:42 AM GOVERNMENT RELATIONS MANAGER Gender Identity Not on file Sexual Orientation Not on file documented as of this encounter Plan of Treatment Not on file documented as of this encounter Visit Diagnoses Not on filedocumented in this encounter Care Teams Systems Software Designer Relationship Specialty Start Date End Date Sharan Gómez Jr., MD [address] [place] [address] PCP - General 08/10/05 documented as of this encounter
--- OUTSIDE RECORDS SUMMARY | 2025-08-01 23:19 | XMS_ITS | Encounter Summary ---
Author Organization [facility] Address [address] [place] [address] Care Team Providers Care Tail Board Man Name Role Phone Rico Muñiz MD, Sharan Jaime Primary Care Provider Encounter Details Date Type Department Care Team (Latest Contact Info) Description 08/16/2000 Outpatient Historical [facility] Sharan Gómez Jr., MD [address] [place] [address] Pure hypercholesterolem (Primary Dx); Unspecified essential hypertension; Encounter for long-term (current) use of other medications Social History Tobacco Use Types Packs/Day Years Used Date Smoking Tobacco: Never Assessed Comments Unknown Sex and Gender Information Value Date Recorded Sex Assigned at Not on file Legal Sex Female 5:42 AM AGRICULTURAL EDUCATION INSTRUCTOR Gender Identity Not on file Sexual Orientation Not on file documented as of this encounter Plan of Treatment Not on file documented as of this encounter Visit Diagnoses Diagnosis Pure hypercholesterolem- Primary Pure hypercholesterolemia Unspecified essential hypertension Encounter for long-term (current) use of other medications documented in this encounter Care Teams Tail Board Man Relationship Specialty Start Date End Date Sharan Gómez Jr., MD [address] [place] [address] PCP - General 08/10/05 documented as of this encounter
--- OUTSIDE RECORDS SUMMARY | 2025-08-01 23:19 | XMS_ITS | Continuity of Care Document ---
Author Organization [facility], [facility] ([facility]) Address [address] [place] [address] Care Team Providers Care Code Official Name Role Phone LYN MARMOLEJO Primary Care Provider Assessment No assessment recorded. Plan of Treatment Reminders Order Date Submit Date Provider Last Modified By Organization Details Last Modified Time Details Appointments None record ed. Lab PT/INR 025 07/30/20 25 QUENTIN [facility] [address] [place], [address], 11:49:49 Referral None record ed. Procedures None record ed. Surgeries None record ed. Imaging None record ed. Medication Orders None record ed. Patient TargetsNo targets recorded. Patient InstructionsNo instructions recorded. Reason for Referral None Reported. Results Created Date Observation Date Name Description Value Unit Range Abnormal Flag Note LastModifiedBy Organization Detail LastModifiedTime 07/02/2007/02/2025 PT/IN R Protime 42.3 Not Available [facility]) [address] [place], [address], 07/01/2025 10:25:07 07/02/20 25 07/02/2025 PT/IN R INR 3.5 Not Available [facility] ([facility]) [address] [place], [address], 07/01/2025 10:25:07 07/06/20 25 07/06/2025 PT/IN R Protime 39.5 Not Available [facility] ([facility]) [address] [place], [address], 07/06/2025 11:23:26 07/06/20 25 07/06/2025 PT/IN R INR 3.3 Not Available [facility] ([facility]) [address] [place], [address], 07/06/2025 11:23:26 07/09/20 25 07/09/2025 PT/IN R Protime 34.6 Not Available [facility] ([facility]) [address] [place], [address], 07/09/2025 13:44:17 07/09/20 25 07/09/2025 PT/IN R INR 2.9 Not Available [facility] ([facility]) [address] [place], [address], 07/09/2025 13:44:17 07/14/20 25 07/14/2025 URINA LYSIS WITH MICRO color YELLOW Not Available [facility] [address] [facility] [address], [place], [address], 07/14/2025 14:52:32 07/14/20 25 07/14/2025 URINA LYSIS WITH MICRO clarity CLEAR Not Available [facility] [address] [facility] [address], [place], [address], 07/14/2025 14:52:32 07/14/20 25 07/14/2025 URINA LYSIS WITH MICRO glu NEGATI VE Not Available [facility] [address] [facility] [address], [address], 07/14/2025 14:52:32 07/14/20 25 07/14/2025 URINA LYSIS WITH MICRO bili NEGATI VE Not Available [facility] [address], [place], [address], 07/14/2025 14:52:32 07/14/20 25 07/14/2025 URINA LYSIS WITH MICRO ket NEGATI VE Not Available [facility] [address], [place], [address], 07/14/2025 14:52:32 07/14/2007/14/2025 URINA LYSIS WITH MICRO S.g 1.010 1.005- 1.025 Not Available [facility] [address], [place], [address], 07/14/2025 14:52:32 07/14/20 25 07/14/2025 URINA LYSIS WITH MICRO pH 5.0 5.0-7. 0 Not Available [facility] [address], [place], [address], 07/14/2025 14:52:32 07/14/20 25 07/14/2025 URINA LYSIS WITH MICRO pro NEGATI VE Not Available [facility] [address], [place], [address], 07/14/2025 14:52:32 07/14/20 25 07/14/2025 URINA LYSIS WITH MICRO uro 0.2 E.U./D L Not Available [facility] [address], [place], [address], 07/14/2025 14:52:32 07/14/2007/14/2025 URINA LYSIS WITH MICRO nit NEGATI VE Not Available [facility] [address], [place], [address], 07/14/2025 14:52:32 07/14/20 25 07/14/2025 URINA LYSIS WITH MICRO blo NEGATI VE Not Available [facility] [address] [facility] [address], [place], [address], 07/14/2025 14:52:32 07/14/20 25 07/14/2025 URINA LYSIS WITH MICRO jose elias NEGATI VE Not Available [facility] [address] [facility] [address], [place], [address], 07/14/2025 14:52:32 07/14/20 25 07/14/2025 URINA LYSIS WITH MICRO WBC 0-1 abnormal Not Available [facility] [address] [facility] [address], [place], [address], 07/14/2025 14:52:32 07/14/20 25 07/14/2025 URINA LYSIS WITH MICRO RBC NEGATI VE Not Available [facility] [address] [facility] [address], [place], [address], 07/14/2025 14:52:32 07/14/20 25 07/14/2025 URINA LYSIS WITH MICRO epi cells 1-2 abnormal Not Available [facility] [address] [facility] [address], [place], [address], 07/14/2025 14:52:32 07/14/20 25 07/14/2025 URINA LYSIS WITH MICRO bacteria 1-2 HYALIN E CAST abnormal Not Available [facility] [address] [facility] [address], [place], [address], 07/14/2025 14:52:32 07/14/20 25 07/14/2025 URINA LYSIS WITH MICRO other NEG Not Available [facility] [address] [facility] [address], [place], [address], 07/14/2025 14:52:32 07/14/20 25 07/16/2025 CULTU RE, URINE , ROUTI NE culture, urine, routine SEE NOTE CULTU RE, URINE , ROUTI NE Micro Numbe r: [id number] Test Statu s: Final Speci men Sourc e: Urine Speci men Quali ty: Adequ ate Resul t: No Growt h Not Available [facility] [address] [place], [address], 07/16/2025 02:51:13 07/17/2007/17/2025 PT/IN R Protime 34.4 Not Available [facility] ([facility]) [address] [place], [address], 07/16/2025 12:07:15 07/17/2007/17/2025 PT/IN R INR 2.9 Not Available [facility] ([facility]) [address] [place], [address], 07/16/2025 12:07:15 07/23/2007/23/2025 PT/IN R Protime 47.0 Not Available [facility] ([facility]) [address] [place], [address], 07/23/2025 11:36:06 07/23/2007/23/2025 PT/IN R INR 3.9 Not Available [facility] ([facility]) [address] [place], [address], 07/23/2025 11:36:06 07/30/2007/30/2025 PT/IN R Protime 30.2 Not Available [facility] ([facility]) [address] [place], [address], 07/30/2025 11:33:15 07/30/2007/30/2025 PT/IN R INR 2.5 Not Available [facility] ([facility]) [address] [place], [address], 07/30/2025 11:33:15 Result Notes None recorded. Problems Name Problem SNOMED Code Status Onset Date Resolution Date Notes Provider Name and Address Organization Details Recorded Time Depressi ve disorder 53547085 Completed 202010/14/2021 Depressi on - Status is Inactive ; 10/14/20 11:08AM by Maryellen Marmolejo PA-C, Annotati on/Adden dum; Promoted ; acuity set as *; FELISHA hamilton [facility] 5 07:56:57 Herpes zoster 3161720 Completed 202201/02/2025 SHINGLES FELISHA hamilton [facility] 5 07:56:03 Dysthymi a 17041629 Active 2022 DEPRESSI ON WITH ANXIETY FELISHA hamilton [facility] 5 07:55:28 Benign essentia l hyperten jovanni 3058487 Active 2022 FELISHA hamilton [facility] 5 07:55:28 Gastroes ophageal reflux disease 537174404 [facility] 2022 [facility] 07:55:28 Fracture of upper end of humerus 350331515 Completed 202201/02/2025 CLOSED FRACTURE OF PROXIMAL END OF RIGHT HUMERUS, SEQUELA FELISHA hamilton [facility] 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 5 07:56:22 Atrial fibrilla tion 65832188 Active 2022 FELISHA hamilton [facility] 3 14:45:05 Coronary atherosc lerosis 781051127 Active 2022 bare metal stents to circ and LAD 2011 FELISHA DESIR null, [facility] 3 14:46:30 Iron deficien cy anemia 14390687 Active 2022 FELISHA DESIR null, [facility] 5 07:55:28 Hypothyr oidism 69321799 Active 2022 FELISHA DESIR null, [facility] 3 14:45:59 Anxiety 77619746 Active 2022 FELISHA DESIR null, [facility] 3 14:46:54 Viral hepatiti s C 97864101 Active 2022 FELISHA DESIR null, [facility] 5 07:55:28 Moderate recurren t major depressi on 42041390 Active 2023 FELISHA DESIR null, [facility] 5 07:55:28 Need for personal care assistan ce 62760573091 333515 Active 2023 FELISHA DESIR null, [facility] 5 07:55:28 Frail elderly 578039099 Active 2023 FELISHA DESIR null, [facility] 5 07:55:28 Seasonal allergic rhinitis 780961507 Active 2023 FELISHA DESIR null, [facility] 5 07:55:28 Chronic pain 26827307 Active 2023 FELISHA DESIR null, [facility] 5 07:55:28 Dementia 73433571 Active 2023 FELISHA DESIR null, [facility] 07:55:28 Constipa tion 14690842 Active 2023 [facility] 07:55:44 Hyperlip idemia 46849591 Active 2024 [facility] 5 07:59:38 Occult blood detected in feces 48151171 Active 2024 FELISHA DESIR alfonso, [facility] 5 09:13:35 Mean corpuscu lar volume above referenc e range 522608456 Active 2024 [facility] 09:14:07 Hypercal cemia 30043099 Active 2024 [facility] 10:07:49 Vitamin D deficien cy 65049100 Active 2024 Lyn Marmolejo MD [address] [place] [address], [address] [place] [address] 5, [facility] 12:54:55 Hyperpar athyroid ism 72408672 Active 2024 Lyn Marmolejo MD [address] [place] [address], [address], [facility] 5 12:54:56 Dysuria 76894328 Active 2024 Dotty Celis [facility] 14:08:08 Problem Notes None recorded. Procedures Surgical History Date Name Laterality Status Provider Name and Address Organization Details Recorded Time 2024 esophagogastroduodenoscopy completed YANELIS DESIR [facility] 12:23:16 2024 colonoscopy completed [facility] 5 10:20:11 2023 esophagogastroduodenoscopy completed KIARA ILYA DONITA [facility] 4 12:40:14 2023 colonoscopy completed Lyn Marmolejo MD [address] [place] [address], [address], [facility] 5 10:19:30 cholecystectomy completed [facility] 3 14:48:40 replacement of mitral valve complete d [facility] 3 14:49:22 section completed [facility] 3 15:14:43 Imaging Results None recorded. Procedure Notes None recorded. Medical Equipment None Reported. Allergies Allergen ID Allergen Name Allergen Category Reaction Reaction Severity Criticality Documentation Date Start Date Code Code System Note Provider Name and Address Organization Details Recorded Time 1376 morphine medicatio n Not available Not available Not available 02/07/2023 7052 RxNorm Dotty Vimal [facility] 3 10:45:47 1377 diltiazem Not available Not available Not available Not available 02/07/2023 3443 RxNorm Dotty Vimal [facility] 3 10:45:54 4552 Bactrim medicatio n other severe high 04/17/2023 23488 9 RxNorm do not give d/t couma din Lola Vidal [facility] 4 13:34:33 16077 diltiazem hydrochlo ride medicatio n Not available Not available Not available 05/26/2023 1 RxNorm Comme nt: Recor ded 12/29 7:56A M by Yanelis Kitchen on, [employer], 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 ; Promo talib; Revai dolores ce: *; Reaso n: Drug aller gy; ; [facility] 3 12:26:44 40785 morphine sulfate medicatio n Not available Not available Not available 05/26/2023 81178 RxNorm Comme nt: Recor ded 12/29 7:56A M by Yanelis Allens on, [employer], 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 ; Promo talib; Signi dolores ce: *; Reaso n: Drug aller gy; ; [facility] 3 12:26:48 Medications Name Sig Start Date [...] Available warfarin 3 mg tablet 1 tablet Mon, 07/23 completed Not Available Not Available Not [...] 23 3:42PM by Felisha Desir LPN (Authori zed through Lyn Marmolejo MD), Refill Request; Refill Quantity : 60; Tablet; Not Available Not Available Not Available metoprolo l tartrate twice daily 06/08 completed 0; Recorded 12/30/19 23 7:56AM by Felisha Desir LPN, Office Visit; Not Available Not Available Not Available folic acid 06/08 completed Not Available Not Available Not Available iron every other day 06/083 completed 436; Recorded 09/25/20 22 2:38PM by [...] not run out. Thank you.; Recorded 11/15/19 3:06PM by Zehra Gonzalez LPN, Historic al Summary; Refill Quantity : 0; Not Available Not Available Not Available venlafaxi ne daily 06/08 completed AM/CC; 436; Recorded 11/13/19 3:03PM by Dotty Larry RN (Authori candelario through Lyn Marmolejo MD), Refill Request; Refill Quantity : 30; Capsule; Not Available Not Available Not Available furosemid e daily 06/08 completed 436; Recorded 01/02/20 3:43PM by Felisha Desir LPN (Authori zed through Lyn Marmolejo MD), Refill Request; Refill Quantity : 30; Tablet; Not Available Not Available Not Available fiber 06/08 completed Not Available Not Available Not Available [facility] Levothyro xine Sodium daily 06/08 completed 07187; Recorded 01/09/20 6:06PM by Shirley Quevedo (Authori zed through Travis Sousa MD), Refill Request; Refill Quantity : 30; Tablet; Not Available Not Available Not Available galantami ne 04/17 completed Not Available Not Available Not Available Potassium Chloride ER twice daily 06/08 completed 436; Recorded 03/13/20 22 3:22PM by Felisha Desir LPN (Authori zed [...] Not Available Not Available Not Available Vitals None Recorded Social History Question Answer Notes LastModified by [employer] Details LastModified Time Tobacco Smoking Status Former Smoker FELISHA DESIR [facility] 04/17/2023 14:48:01 What Was The Date Of Your Most Recent Tobacco Screening? 05/27/2025 [email or web address] Information not available 05/27/2025 Sex: Unknown Functional Status Question Answer Note LastModified by Organizat ion Details LastModified Time Do you use any illicit or recreational drugs? No [email or web address] Information not available 04/17/2023 Do you or have you ever used any other forms of tobacco or nicotine? No Information not available 06/29/2023 What is your level of alcohol consumption? None [email or web address] Information not available 04/17/2023 Mental Status None recorded. Family History Relationship Description Onset Age of this Age Resolved Age Notes LastModified by Organization Details LastModified Time Unspecified Relation Coronary atherosclero sis [email or web address] Not available 06/29 15:13:48 Medical History No medical history recorded. Gynecological HistoryNo gynecological history recorded. Obstetrics History GPAL:G 0 P 0 0 0 0 Immunizations Vaccine Type Date Status Note Provider Nam e and Address Organization Details Recorded Time Influenza, MDCK, quadrivalent, PF 2 completed FELISHA hamilton, [facility] 10/10/2024 08:38:58 COVID-19, mRNA, LNP-S, PF, 100 mcg/0.5mL dose or 50 mcg/0.25mL dose 1 completed FELISHA DESIR null, [facility] 10/10/2024 08:38:58 COVID-19, mRNA, LNP-S, PF, 100 mcg/0.5mL dose or 50 mcg/0.25mL dose 1 completed FELISHA hamilton, [facility] 10/10/2024 08:38:58 COVID-19, mRNA, LNP-S, PF, 100 mcg/0.5mL dose or 50 mcg/0.25mL dose 2 completed FELISHA hamilton, [facility] 10/10/2024 08:38:58 Pneumococcal conjugate PCV20, polysaccharide [id number] conjugate, adjuvant, PF 3 completed FELISHA hamilton, [facility] 10/10/2024 08:38:58 COVID-19, mRNA, LNP-S, bivalent, PF, 50 mcg/0.5 mL or 25mcg/0.25 mL dose 3 completed FELISHA hamilton, [facility] 10/10/2024 08:38:58 pneumococcal polysaccharide PPV23 3 completed FELISHA hamilton, [facility] 04/17/2023 12:02:00 Tdap 1 completed FELISHA hamilton, [facility] 10/10/2024 08:38:58 Influenza, split virus, trivalent, PF 3 completed FELISHA hamilton, [facility] 04/17/2023 12:02:00 influenza, split (incl. purified surface antigen) 0 completed FELISHA DESIR null, [facility] 04/17/2023 12:02:00 Hep A, adult 1 completed FELISHA DESIR null, [facility] 10/10/2024 08:38:58 Hep A, adult 9 completed FELISHA DESIR null, [facility] 10/10/2024 08:38:58 Influenza, split virus, quadrivalent, PF 1 completed FELISHA DESIR null, [facility] 10/10/2024 08:38:58 Influenza, split virus, quadrivalent, PF 9 completed FELISHA hamilton, [facility] 10/10/2024 08:38:58 Influenza, MDCK, trivalent, PF 4 completed FELISHA DESIR null, [facility] 10/10/2024 08:38:58 Influenza, MDCK, quadrivalent, preservative 3 completed FELISHA hamilton, [facility] 10/10/2024 08:38:58 pneumococcal polysaccharide PPV23 8 completed Lola hamilton, [facility] 07/02/2024 08:41:52 Influenza, split virus, quadrivalent, PF 8 completed Lola hamilton, [facility] 07/02/2024 08:41:52 zoster recombinant 3 completed Lola hamilton, [facility] 07/02/2024 14:52:40 COVID-19, mRNA, LNP-S, PF, 50 mcg/0.5 mL 4 completed FELISHA hamilton, [facility] 10/10/2024 08:38:58 Influenza, MDCK, trivalent, preservative 4 completed FELISHA hamilton [facility] 10/10/2024 08:38:58 Past Encounters Encounter ID Performer Location Encounter Start Date Encounter Closed Date Diagnosis/Indication Diagnosis SNOMED-CT Code Diagnosis ICD10 Code Diagnosis IMO Codes Diagnosis Note [id number] Lyn Marmolejo MD [facility] ([facility]) [address] [place] [phone] 07/01/2025 10:24:23 07/02/2025 11:29:38 Atrial fibrillation 38547906 I48.91 warfarin therapy [id number] Lyn Marmolejo MD [facility] [address] [place] [phone] 5 07/03/2025 08:14:55 07/13/2025 10:06:37 Benign essential hypertension 7219434 I10 Coronary atherosclerosis 476688337 I25.119 Atrial fibrillation 4943 6004 I48.91 warfarin therapyd/c naproxen d/t hx of bleeding Hyperlipidemia 10185395 E78.00 Hypothyroidism 01959488 E03.9 [facility] 6699 9008 E21.3 [id number] Lyn Marmolejo MD [facility] ([facility]) [address] [place] [address] 5 07/06/2025 11:22:40 07/07/2025 09:33:46 History of mechanical prosthetic mitral valve replacement 692249071 Z95.2 [id number] Lyn Marmolejo MD [facility] ([facility]) [address] [place] [address] 5 07/09/2025 13:42:58 07/10/2025 14:24:59 Atrial fibrillation 66956920 I48.91 warfarin therapyd/c naproxen d/t hx of bleeding [id number] Lyn Marmolejo MD [facility] ([facility]) [address] [place] [phone] 5 07/14/2025 13:52:08 07/15/2025 10:22:44 Dysuria 46482774 R30.0 16401 will call with ua results [id number] Lyn Marmolejo MD [facility] ([facility]) [address] [place] [phone] 5 07/16/2025 12:05:46 07/17/2025 11:01:38 Atrial fibrillation 99642864 I48.91 warfarin therapyd/c naproxen d/t hx of bleeding [id number] Lyn Marmolejo MD [facility] ([facility]) [address] [place] [phone] 5 07/23/2025 11:35:38 07/24/2025 12:08:17 Atrial fibrillation 32906607 I48.91 warfarin therapyd/c naproxen d/t hx of bleeding [id number] Lyn Marmolejo MD [facility] ([facility]) [address] [place] [phone] 5 07/30/2025 11:32:37 07/31/2025 09:44:15 History of mechanical prosthetic mitral valve replacement 729315238 Z95.2 Health Concerns Section Related Observation LastModified by Organization Detai ls LastModified Time None Recorded Concern Status LastModified by Organization Details LastModified Time None Recorded Payers Encounter Date Sequence Insurance Name Policy Number Policy Hernandez Covered Member ID Hernandez Member ID Guarantor Name 07/30/2025 1 [place]ANT[place] - [place]PO) [id number] Odilia Ulloa [id number] Odilia Ulloa 07/30/2025 2 [place] Odilia Ulloa [id number] Odilia Ulloa OBGyn Episode No OBEpisode recorded.
--- OUTSIDE RECORDS SUMMARY | 2025-08-01 23:19 | XMS_ITS | Encounter Summary ---
Author Organization [facility] Address [address] [place] [address] Care Team Providers Care Silver Miner Name Role Phone Rico Muñiz MD, Sharan Jaime Primary Care Provider Encounter Details Date Type Department Care Team (Latest Contact Info) Description 08/03/2000 Outpatient Historical [facility] Sharan Gómez Jr., MD [address] [place] [address] Pure hypercholesterolem (Primary Dx); Other and unspecified hyperlipidemia; Dietary surveil/certified genetic counselor Social History Tobacco Use Types Packs/Day Years Used Date Smoking Tobacco: Never Assessed Comments Unknown Sex and Gender Information Value Date Recorded Sex Assigned at Not on file Legal Sex Female 5:42 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
--- OUTSIDE RECORDS SUMMARY | 2025-08-01 23:19 | XMS_ITS | Encounter Summary ---
Author Organization [facility] Address [address] [place] [address] Care Team Providers Care Programmer Numerical Control Name Role Phone Rico Muñiz MD, Sharan Jaime Primary Care Provider Encounter Details Date Type Department Care Team (Latest Contact Info) Description 09/05/2001 Outpatient Historical [facility] Sharan Gómez Jr., MD [address] [place] [address] OSTEOARTHROS NOS-UNSPEC (Primary Dx); OSTEOPOROSIS NOS Social History Tobacco Use Types Packs/Day Years Used Date Smoking Tobacco: Never Assessed Comments Unknown Sex and Gender Information Value Date Recorded Sex Assigned at Not on file 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
--- OUTSIDE RECORDS SUMMARY | 2025-08-01 23:19 | XMS_ITS | Encounter Summary ---
Author Organization [facility] Address [address] [facility] Attn: [place] [address] Care Team Providers Care Insurance And Financial Services Agent Name Role Phone Rico Muñiz MD, Sharan Jaime Primary Care Provider Encounter Details Date Type Department Care Team (Late st Contact Info) Description 08/16/2000 Outpatient Historical Sharan Gómez Jr., MD [address] [place] [address] Social History Tobacco Use Types Packs/Day Years Used Date Smoking Tobacco: Never Assessed Comments Unknown Sex and Gender Information Value Date Recorded Sex Assigned at Not on file 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
--- OUTSIDE RECORDS SUMMARY | 2025-08-01 23:19 | XMS_ITS | Encounter Summary ---
Author Organization [facility] Address [address] [place] [address] Care Team Providers Care Seam Sewer Name Role Phone Rico Muñiz MD, Sharan Jaime Primary Care Provider Encounter Details Date Type Department Care Team (Latest Contact Info) Description 10/31/2001 Outpatient Historical 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
--- OUTSIDE RECORDS SUMMARY | 2025-08-01 23:19 | XMS_ITS | Encounter Summary ---
Author Organization [facility] Address [address] [place] [address] Care Team Providers Care Telephone Sterilizer Name Role Phone Rico Muñiz MD, Sharan Jaime Primary Care Provider Encounter Details Date Type Department Care Team (Latest Contact Info) Description 12/20/2001 Outpatient Historical [facility] Sharan Gómez Jr., MD [address] [place] [address] WHEEZING (Primary Dx); HEART VALVE REPLAC NEC; AFTERCARE CORPORATE HEALTH CONSULTANT ANTICOAG USE Social History Tobacco Use Types Packs/Day Years Used Date Smoking Tobacco: Never Assessed Comments Unknown Sex and Gender Information Value Date Recorded Sex Assigned at Not on file Legal Sex Female 5:42 AM LATH HAND Gender Identity Not on file Sexual Orientation Not on file documented as of this encounter Plan of Treatment Not on file documented as of this encounter Visit Diagnoses Diagnosis Wheezing- Primary 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
--- OUTSIDE RECORDS SUMMARY | 2025-08-01 23:19 | XMS_ITS | Encounter Summary ---
Author Organization [facility] Address [address] [facility] Attn: [place] [address] Care Team Providers Care Camera Repairman Name Role Phone Rico Muñiz MD, Sharan Jaime Primary Care Provider Encounter Details Date Type Department Care Team (Late st Contact Info) Description 12/20/2001 Outpatient Historical Sharan Gómez Jr., MD [address] [place] [address] Social History Tobacco Use Types Packs/Day Years Used Date Smoking Tobacco: Never Assessed Comments Unknown Sex and Gender Information Value Date Recorded Sex Assigned at Not on file Legal Sex Female 5:42 AM MOLD DESIGNER Gender Identity Not on file Sexual Orientation Not on file documented as of this encounter Plan of Treatment Not on file documented as of this encounter Visit Diagnoses Not on filedocumented in this encounter Care Teams Camera Repairman Relationship Specialty Start Date End Date Sharan Gómez Jr., MD [address] [place] [address] PCP - General 08/10/05 documented as of this encounter
--- OUTSIDE RECORDS SUMMARY | 2025-08-01 23:19 | XMS_ITS | Encounter Summary ---
Author Organization [facility] Address [address] [place] [address] Care Team Providers Care Roofing Contractor Name Role Phone Rico Muñiz MD, Sharan Jaime Primary Care Provider Encounter Details Date Type Department Care Team (Latest Contact Info) Description 11/09/2000 Outpatient Historical [facility] Sharan Gómez Jr., MD [address] [place] [address] Unspecified essential hypertension (Primary Dx); Pure hypercholesterolem; Endocarditis, valve unspecified, unspecified cause; skilled nursing (current) use of anticoagulants Social History Tobacco Use Types Packs/Day Years Used Date Smoking Tobacco: Never Assessed Comments Unknown Sex and Gender Information Value Date Recorded Sex Assigned at Not on file Legal Sex Female 5:42 AM TRANSITIONS MANAGER Gender Identity Not on file Sexual Orientation Not on file documented as of this encounter Plan of Treatment Not on file documented as of this encounter Visit Diagnoses Diagnosis Unspecified essential hypertension- Primary Pure hypercholesterolem Pure hypercholesterolemia Endocarditis, valve unspecified, unspecified cause shine worker (current) use of anticoagulants Long-term (current) use of anticoagulants documented in this encounter Care Teams Roofing Contractor Relationship Specialty Start Date End Date Sharan Gómez Jr., MD [address] [place] [address] PCP - General 08/10/05 documented as of this encounter
--- OUTSIDE RECORDS SUMMARY | 2025-08-01 23:19 | XMS_ITS | Encounter Summary ---
Author Organization [facility] Address [address] [place] [address] Care Team Providers Care Development Vice President Name Role Phone Rico Muñiz MD, Sharan Jaime Primary Care Provider Encounter Details Date Type Department Care Team (Latest Contact Info) Description 09/12/2000 Outpatient Historical [facility] Sharan Gómez Jr., MD [address] [place] [address] Other and unspecified hyperlipidemia (Primary Dx); Other nonspecific finding on examination of urine; Personal history of other disorder of urinary system; alf (current) use of anticoagulants Social History Tobacco Use Types Packs/Day Years Used Date Smoking Tobacco: Never Assessed Comments Unknown Sex and Gender Information Value Date Recorded Sex Assigned at Not on file Legal Sex Female 5:42 AM GRAVITY MANAGER Gender Identity Not on file Sexual Orientation Not on file documented as of this encounter Plan of Treatment Not on file documented as of this encounter Visit Diagnoses Diagnosis Other and unspecified hyperlipidemia- Primary Other nonspecific finding on examination of urine Personal history of other disorder of urinary system alf (current) use of anticoagulants Long-term (current) use of anticoagulants documented in this encounter Care Teams Development Vice President Relationship Specialty Start Date End Date Sharan Gómez Jr., MD [address] [place] [address] PCP - General 08/10/05 documented as of this encounter
--- OUTSIDE RECORDS SUMMARY | 2025-08-01 23:19 | XMS_ITS | Encounter Summary ---
Author Organization [facility] Address [address] [facility] Attn: [place] [address] Care Team Providers Care Statistical Methods Professor Name Role Phone Rico Muñiz MD, Sharan Jaime Primary Care Provider Encounter Details Date Type Department Care Team (Late st Contact Info) Description 06/22/2000 Outpatient Historical Serge Arrington MD [address] [facility] [address] [place] [address] Social History Tobacco Use Types Packs/Day Years Used Date Smoking Tobacco: Never Assessed Comments Unknown Sex and Gender Information Value Date Recorded Sex Assigned at Not on file Legal Sex Female 5:42 AM CORPORATE 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
--- OUTSIDE RECORDS SUMMARY | 2025-08-01 23:19 | XMS_ITS | Encounter Summary ---
Author Organization [facility] Address [address] [place] [address] Care Team Providers Care Trimmer Meat Name Role Phone Rico Muñiz MD, Sharan Jaime Primary Care Provider Encounter Details Date Type Department Care Team (Latest Contact Info) Description 06/28/2000 Outpatient Historical [facility] Sharan Gómez Jr., MD [address] [place] [address] Pure hypercholesterolem (Primary Dx); Hypopotassemia; Heart valve replaced by other means Social History Tobacco Use Types Packs/Day Years Used Date Smoking Tobacco: Never Assessed Comments Unknown Sex and Gender Information Value Date Recorded Sex Assigned at Not on file Legal Sex Female 5:42 AM CHAIR Gender Identity Not on file Sexual Orientation Not on file documented as of this encounter Plan of Treatment Not on file documented as of this encounter Visit Diagnoses Diagnosis Pure hypercholesterolem- Primary Pure hypercholesterolemia Hypopotassemia Heart valve replaced by other means documented in this encounter Care Teams Trimmer Meat Relationship Specialty Start Date End Date Sharan Gómez Jr., MD [address] [place] [address] PCP - General 08/10/05 documented as of this encounter
--- OUTSIDE RECORDS SUMMARY | 2025-08-01 23:19 | XMS_ITS | Encounter Summary ---
Author Organization [facility] Address [address] [facility] Attn: [place] [address] Care Team Providers Care Supervisor Lump Room Name Role Phone Rico Muñiz MD, Sharan Jaime Primary Care Provider Encounter Details Date Type Department Care Team (Late st Contact Info) Description 04/07/2002 Outpatient Historical Sharan Gómez Jr., MD [address] [place] [address] Social History Tobacco Use Types Packs/Day Years Used Date Smoking Tobacco: Never Assessed Comments Unknown Sex and Gender Information Value Date Recorded Sex Assigned at Not on file Legal Sex Female 5:42 AM BROADCAST OPERATIONS MANAGER Gender Identity Not on file Sexual Orientation Not on file documented as of this encounter Plan of Treatment Not on file documented as of this encounter Visit Diagnoses Not on filedocumented in this encounter Care Teams Supervisor Lump Room Relationship Specialty Start Date End Date Sharan Gómez Jr., MD [address] [place] [address] PCP - General 08/10/05 documented as of this encounter
--- OUTSIDE RECORDS SUMMARY | 2025-08-01 23:20 | XMS_ITS | Encounter Summary ---
Author Organization [facility] Address [address] [place] [address] Care Team Providers Care Service Delivery Consultant Name Role Phone Rico Muñiz MD, Sharan Jaime Primary Care Provider Encounter Details Date Type Department Care Team (Latest Contact Info) Description 12/26/1999 Outpatient Historical [facility] Sharan Gómez Jr., MD [address] [place] [address] ASCVD (Primary Dx); Esophageal reflux; Unspecified essential hypertension; terminal make up operator (current) use of anticoagulants Social History Tobacco Use Types Packs/Day Years Used Date Smoking Tobacco: Never Assessed Comments Unknown Sex and Gender Information Value Date Recorded Sex Assigned at Not on file Legal Sex Female 5:42 AM CODING VALIDATOR Gender Identity Not on file Sexual Orientation Not on file documented as of this encounter Plan of Treatment Not on file documented as of this encounter Visit Diagnoses Diagnosis ASCVD- Primary Unspecified cardiovascular disease Esophageal reflux Unspecified essential hypertension terminal make up operator (current) use of anticoagulants Long-term (current) use of anticoagulants documented in this encounter Care Teams Service Delivery Consultant Relationship Specialty Start Date End Date Sharan Gómez Jr., MD [address] [place] [address] PCP - General 08/10/05 documented as of this encounter
--- OUTSIDE RECORDS SUMMARY | 2025-08-01 23:20 | XMS_ITS | Encounter Summary ---
Author Organization [facility] Address [address] [place] [address] Care Team Providers Care Installation Manager Name Role Phone Rico Muñiz MD, Sharan aJime Primary Care Provider Encounter Details Date Type Department Care Team (Latest Contact Info) Description 08/10/2005 Outpatient Historical [facility]- [place] [address] [facility] [address] [place] [address] Bill Negron MD [address] [place] [address] ABN FIND-STOOL CONTENTS-OCC BLOOD (Primary Dx); INT HEMORRHOID W/O COMPL; ANAL FISSURE Social History Tobacco Use Types Packs/Day Years Used Date Smoking Tobacco: Never Assessed Comments Unknown Sex and Gender Information Value Date Recorded Sex Assigned at Not on file Legal Sex Female 5:42 AM BUSINESS INTELLIGENCE ADMINISTRATOR Gender Identity Not on file Sexual Orientation Not on file documented as of this encounter Plan of Treatment Not on file documented as of this encounter Visit Diagnoses Diagnosis Nonspecific abnormal finding in stool contents- Primary Internal hemorrhoids without mention of complication Anal fissure documented in this encounter Care Teams Installation Manager Relationship Specialty Start Date End Date Sharan Gómez Jr., MD [address] [place] [address] PCP - General 08/10/05 documented as of this encounter
--- OUTSIDE RECORDS SUMMARY | 2025-08-01 23:20 | XMS_ITS | Encounter Summary ---
Author Organization [facility] Address [address] [place] [address] Care Team Providers Care Regulatory Affairs Spec Name Role Phone Rico Muñiz MD, Sharan Jaime Primary Care Provider Encounter Details Date Type Department Care Team (Latest Contact Info) Description 06/20/1999 Outpatient Historical [facility] Imaging Services-[facility] [address] [place] [address] Serge Arrington MD [address] [place] [address] Cough (Primary Dx) Social History Tobacco Use Types Packs/Day Years Used Date Smoking Tobacco: Never Assessed Comments Unknown Sex and Gender Information Value Date Recorded Sex Assigned at Not on file Legal Sex Female 5:42 AM CONTINUOUS MINING 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 Gender Identity Not on file Sexual Orientation Not on file documented as of this encounter Plan of Treatment Not on file documented as of this encounter Visit Diagnoses Diagnosis Cough- Primary documented in this encounter Care Teams Regulatory Affairs Spec Relationship Specialty Start Date End Date Sharan Gómez Jr., MD [address] [place] [address] PCP - General 08/10/05 documented as of this encounter
--- OUTSIDE RECORDS SUMMARY | 2025-08-01 23:20 | XMS_ITS | Encounter Summary ---
Author Organization [facility] Address [address] [facility] Attn: [place] [address] Care Team Providers Care Insurance Verification Specialist Name Role Phone Rico Muñiz MD, Sharan Jaime Primary Care Provider Encounter Details Date Type Department Care Team (Late st Contact Info) Description 12/26/1999 Outpatient Historical Sharan Gómez Jr., MD [address] [place] [address] Social History Tobacco Use Types Packs/Day Years Used Date Smoking Tobacco: Never Assessed Comments Unknown Sex and Gender Information Value Date Recorded Sex Assigned at Not on file Legal Sex Female 5:42 AM GEOPHYSICAL PROSPECTING PERMIT AGENT Gender Identity Not on file Sexual Orientation Not on file documented as of this encounter Plan of Treatment Not on file documented as of this encounter Visit Diagnoses Not on filedocumented in this encounter Care Teams Insurance Verification Specialist Relationship Specialty Start Date End Date Sharan Gómez Jr., MD [address] [place] [address] PCP - General 08/10/05 documented as of this encounter
--- OUTSIDE RECORDS SUMMARY | 2025-08-01 23:20 | XMS_ITS | Encounter Summary ---
Author Organization [facility] Address [address] [place] [address] Care Team Providers Care Jewelry Store Manager Name Role Phone Rico Muñiz MD, Sharan Jaime Primary Care Provider Encounter Details Date Type Department Care Team (Latest Contact Info) Description 04/18/1999 Outpatient Historical [facility] Sharan Góemz Jr., MD [address] [place] [address] Headache(784.0) (Primary Dx); Unspecified essential hypertension; FPC (current) use of anticoagulants Social History Tobacco Use Types Packs/Day Years Used Date Smoking Tobacco: Never Assessed Comments Unknown Sex and Gender Information Value Date Recorded Sex Assigned at Not on file Legal Sex Female 5:42 AM TUBE CLEANING OPERATOR Gender Identity Not on file Sexual Orientation Not on file documented as of this encounter Plan of Treatment Not on file documented as of this encounter Visit Diagnoses Diagnosis Headache(784.0)- Primary Headache Unspecified essential hypertension FPC (current) use of anticoagulants Long-term (current) use of anticoagulants documented in this encounter Care Teams Jewelry Store Manager Relationship Specialty Start Date End Date Sharan Gómez Jr., MD [address] [place] [address] PCP - General 08/10/05 documented as of this encounter
--- OUTSIDE RECORDS SUMMARY | 2025-08-01 23:20 | XMS_ITS | Encounter Summary ---
Author Organization [facility] Address [address] [facility] Attn: [place] [address] Care Team Providers Care Insurance Claims Examiner Name Role Phone Rico Muñiz MD, Sharan Jaime Primary Care Provider Encounter Details Date Type Department Care Team (Late st Contact Info) Description 05/24/2000 Outpatient Historical Sharan Gómez Jr., MD [address] [place] [address] Social History Tobacco Use Types Packs/Day Years Used Date Smoking Tobacco: Never Assessed Comments Unknown Sex and Gender Information Value Date Recorded Sex Assigned at Not on file Legal Sex Female 5:42 AM MECHANICAL TECH Gender Identity Not on file Sexual Orientation Not on file documented as of this encounter Plan of Treatment Not on file documented as of this encounter Visit Diagnoses Not on filedocumented in this encounter Care Teams Insurance Claims Examiner Relationship Specialty Start Date End Date Sharan Gómez Jr., MD [address] [place] [address] PCP - General 08/10/05 documented as of this encounter
--- OUTSIDE RECORDS SUMMARY | 2025-08-01 23:20 | XMS_ITS | Encounter Summary ---
Author Organization [facility] Address [address] [place] [address] Care Team Providers Care Remnant Sorter Name Role Phone Rico Muñiz MD, Sharan Jaime Primary Care Provider Encounter Details Date Type Department Care Team (Latest Contact Info) Description 02/15/2001 Outpatient Historical [facility] Sharan Gómez Jr., MD [address] [place] [address] Unspecified essential hypertension (Primary Dx); Heart valve replaced by other means Social History Tobacco Use Types Packs/Day Years Used Date Smoking Tobacco: Never Assessed Comments Unknown Sex and Gender Information Value Date Recorded Sex Assigned at Not on file Legal Sex Female 5:42 AM SAMPLE SAWYER Gender Identity Not on file Sexual Orientation Not on file documented as of this encounter Plan of Treatment Not on file documented as of this encounter Visit Diagnoses Diagnosis Unspecified essential hypertension- Primary Heart valve replaced by other means documented in this encounter Care Teams Remnant Sorter Relationship Specialty Start Date End Date Sharan Gómez Jr., MD [address] [place] [address] PCP - General 08/10/05 documented as of this encounter
--- OUTSIDE RECORDS SUMMARY | 2025-08-01 23:20 | XMS_ITS | Encounter Summary ---
Author Organization [facility] Address [address] [place] [address] Care Team Providers Care Tobacco Drummer Name Role Phone Rico Muñiz MD, Sharan Jiame Primary Care Provider Encounter Details Date Type Department Care Team (Latest Contact Info) Description 01/25/2000 Outpatient Historical [facility] Sharan Gómez Jr., MD [address] [place] [address] Obesity, unspecified (Primary Dx); Heart valve replaced by other means; Unspecified essential hypertension; alf (current) use of anticoagulants Social History Tobacco Use Types Packs/Day Years Used Date Smoking Tobacco: Never Assessed Comments Unknown Sex and Gender Information Value Date Recorded Sex Assigned at Not on file Legal Sex Female 5:42 AM MANAGER OF BUSINESS OPERATIONS Gender Identity Not on file Sexual Orientation Not on file documented as of this encounter Plan of Treatment Not on file documented as of this encounter Visit Diagnoses Diagnosis Obesity, unspecified- Primary Heart valve replaced by other means Unspecified essential hypertension alf (current) use of anticoagulants Long-term (current) use of anticoagulants documented in this encounter Care Teams Tobacco Drummer Relationship Specialty Start Date End Date Sharan Gómez Jr., MD [address] [place] [address] PCP - General 08/10/05 documented as of this encounter
--- OUTSIDE RECORDS SUMMARY | 2025-08-01 23:20 | XMS_ITS | Encounter Summary ---
Author Organization [facility] Address [address] [facility] Attn: [place] [address] Care Team Providers Care Wood Borer Name Role Phone Rico Muñiz MD, Sharan Jaime Primary Care Provider Encounter Details Date Type Department Care Team (Late st Contact Info) Description 11/09/2000 Outpatient Historical Sharan Gómez Jr., MD [address] [place] [address] Social History Tobacco Use Types Packs/Day Years Used Date Smoking Tobacco: Never Assessed Comments Unknown Sex and Gender Information Value Date Recorded Sex Assigned at Not on file Legal Sex Female 5:42 AM PIPE FOREMAN Gender Identity Not on file Sexual Orientation Not on file documented as of this encounter Plan of Treatment Not on file documented as of this encounter Visit Diagnoses Not on filedocumented in this encounter Care Teams Wood Borer Relationship Specialty Start Date End Date Sharan Gómez Jr., MD [address] [place] [address] PCP - General 08/10/05 documented as of this encounter
--- OUTSIDE RECORDS SUMMARY | 2025-08-01 23:20 | XMS_ITS | Encounter Summary ---
Author Organization [facility] Address [address] [place] [address] Care Team Providers Care Middleware Consultant Name Role Phone Rico Muñiz MD, Sharan Jaime Primary Care Provider Encounter Details Date Type Department Care Team (Latest Contact Info) Description 12/31/2000 Outpatient Historical [facility] [place] [address] [facility] [address] [place] [phone] Larry Olvera MD Screening for malignant neoplasm of the rectum (Primary Dx) Social History Tobacco Use Types Packs/Day Years Used Date Smoking Tobacco: Never Assessed Comments Unknown Sex and Gender Information Value Date Recorded Sex Assigned at Not on file Legal Sex Female 5:42 AM EDISCOVERY PROJECT MANAGER Gender Identity Not on file Sexual Orientation Not on file documented as of this encounter Plan of Treatment Not on file documented as of this encounter Visit Diagnoses Diagnosis Screening for malignant neoplasm of the rectum- Primary documented in this encounter Care Teams Middleware Consultant Relationship Specialty Start Date End Date Sharan Gómez Jr., MD [address] [place] [address] PCP - General 08/10/05 documented as of this encounter
--- OUTSIDE RECORDS SUMMARY | 2025-08-01 23:20 | XMS_ITS | Encounter Summary ---
Author Organization [facility] Address [address] [place] [address] Care Team Providers Care Telecommunications Clerk Name Role Phone Rico Muñiz MD, Sharan Jaime Primary Care Provider Encounter Details Date Type Department Care Team (Latest Contact Info) Description 10/26/1999 Outpatient Historical [facility] Sharan Gómez Jr., MD [address] [place] [address] Endocarditis, valve unspecified, unspecified cause (Primary Dx); Osteoporosis, unspecified Social History Tobacco Use Types Packs/Day Years Used Date Smoking Tobacco: Never Assessed Comments Unknown Sex and Gender Information Value Date Recorded Sex Assigned at Not on file Legal Sex Female 5:42 AM COMMERCIAL LINES INSURANCE AGENT Gender Identity Not on file Sexual Orientation Not on file documented as of this encounter Plan of Treatment Not on file documented as of this encounter Visit Diagnoses Diagnosis Endocarditis, valve unspecified, unspecified cause- Primary Osteoporosis, unspecified documented in this encounter Care Teams Telecommunications Clerk Relationship Specialty Start Date End Date Sharan Gómez Jr., MD [address] [place] [address] PCP - General 08/10/05 documented as of this encounter
--- OUTSIDE RECORDS SUMMARY | 2025-08-01 23:20 | XMS_ITS | Encounter Summary ---
Author Organization [facility] Address [address] [place] [address] Care Team Providers Care It Network Engineer Name Role Phone Rico Muñiz MD, Sharan Jaime Primary Care Provider Encounter Details Date Type Department Care Team (Latest Contact Info) Description 01/30/2001 Outpatient Historical [facility] Sharan Gómez Jr., MD [address] [place] [address] Endocarditis, valve unspecified, unspecified cause [...] chronic documented in this encounter Care Teams It Network Engineer Relationship Specialty Start Date End Date Sharan Gómez Jr., MD [address] [place] [address] PCP - General 08/10/05 documented as of this encounter
--- OUTSIDE RECORDS SUMMARY | 2025-08-01 23:20 | XMS_ITS | Encounter Summary ---
Author Organization [facility] Address [address] [place] [address] Care Team Providers Care Renewals Manager Name Role Phone Rico Muñiz MD, Sharan Jaime Primary Care Provider Encounter Details Date Type Department Care Team (Latest Contact Info) Description 12/21/2000 Outpatient Historical [facility] Sharan Gómez Jr., MD [address] [place] [address] Pure hypercholesterolem (Primary Dx); Other and unspecified hyperlipidemia; Esophageal reflux; senior care (current) use of anticoagulants Social History Tobacco Use Types Packs/Day Years Used Date Smoking Tobacco: Never Assessed Comments Unknown Sex and Gender Information Value Date Recorded Sex Assigned at Not on file Legal Sex Female 5:42 AM SVP PROGRAMMATIC TV Gender Identity Not on file Sexual Orientation Not on file documented as of this encounter Plan of Treatment Not on file documented as of this encounter Visit Diagnoses Diagnosis Pure hypercholesterolem- Primary Pure hypercholesterolemia Other and unspecified hyperlipidemia Esophageal reflux senior care (current) use of anticoagulants Long-term (current) use of anticoagulants documented in this encounter Care Teams Renewals Manager Relationship Specialty Start Date End Date Sharan Gómez Jr., MD [address] [place] [address] PCP - General 08/10/05 documented as of this encounter
--- OUTSIDE RECORDS SUMMARY | 2025-08-01 23:20 | XMS_ITS | Encounter Summary ---
Author Organization [facility] Address [address] [place] [address] Care Team Providers Care Cork Painter And Grader Name Role Phone Rico Muñiz MD, Sharan Jaime Primary Care Provider Encounter Details Date Type Department Care Team (Latest Contact Info) Description 04/06/2000 Outpatient Historical [facility] Sharan Gómez Jr., MD [address] [place] [address] Symptomatic menopausal or female climacteric states (Primary Dx); Endocarditis, valve unspecified, unspecified cause; emt intermediate (current) use of anticoagulants Social History Tobacco Use Types Packs/Day Years Used Date Smoking Tobacco: Never Assessed Comments Unknown Sex and Gender Information Value Date Recorded Sex Assigned at Not on file Legal Sex Female 5:42 AM MOLD LAMINATOR Gender Identity Not on file Sexual Orientation Not on file documented as of this encounter Plan of Treatment Not on file documented as of this encounter Visit Diagnoses Diagnosis Symptomatic menopausal or female climacteric states- Primary Endocarditis, valve unspecified, unspecified cause snf (current) use of anticoagulants Long-term (current) use of anticoagulants documented in this encounter Care Teams Cork Painter And Grader Relationship Specialty Start Date End Date Sharan Gómez Jr., MD [address] [place] [phone] PCP - General 08/10/05 documented as of this encounter
--- OUTSIDE RECORDS SUMMARY | 2025-08-01 23:20 | XMS_ITS | Encounter Summary ---
Author Organization [facility] Address [address] [place] [address] Care Team Providers Care Care Assistant Name Role Phone Rico Muñiz MD, Sharan Jaime Primary Care Provider Encounter Details Date Type Department Care Team (Late st Contact Info) Description 10/25/2020 Lab Requisition [facility] Laboratory Services [address] [place] [address] Paulina Peterson MD [address] [place] [address] Social History Tobacco Use Types Packs/Day Years Used Date Smoking Tobacco: Never Assessed Comments Unknown Sex and Gender Information Value Date Recorded Sex Assigned at Not on file Legal Sex Female 5:42 AM PROSTHETICS TECHNICIAN Gender Identity Not on file Sexual Orientation Not on file documented as of this encounter Plan of Treatment Not on file documented as of this encounter Procedures Procedure Name Priority Date/Time Associated Diagnosis Comments PROTIME-INR Routine 10/25/2020 5:18 AM PROSTHETICS TECHNICIAN documented in this encounter Results * (ABNORMAL) PROTIME-INR (10/25/2020 5:18 AM PROSTHETICS TECHNICIAN) PROTIME 34.3(H) 11.9 - 15.5 Seconds 10/25/2020 7:01 PM PROSTHETICS TECHNICIAN [facility] LABORATORY [facility] INR 3.3(H) 0.8 - 1.2 10/25/2020 7:01 PM PROSTHETICS TECHNICIAN [facility] Blood Collection / Unknown 10/25/2020 5:18 AM PROSTHETICS TECHNICIAN 10/25/2020 6:44 PM PROSTHETICS TECHNICIAN Narrative [facility] - 10/25/2020 7:01 PM PROSTHETICS TECHNICIAN Expected Values for INR: DVT/PE Goal INR 2.5; range 2.0 - 3.0 Valve Replacement Tissue Goal INR 2.5; range 2.0 - 3.0 Valve Replacement Mechanical Goal INR 3.0; range 2.5 - 3.5 POST-NV Goal INR 2.5; range 2.0 - 3.0 or Goal INR 3.0; range 2.5 - 3.5 Atrial Fibrillation Goal INR 2.5; range 2.0 - 3.0 Ischemic Stroke Goal INR 2.5; range 2.0 - 3.0 For additional information see Guidelines for Anticoagulation available from the pharmacy [facility]. us Paulina Peterson MD HEMATOLOGY ORDERABLES Maame smart Result [facility] [address] [place] [address] documented in this encounter Visit Diagnoses Not on filedocumented in this encounter Care Teams Care Assistant Relationship Specialty Start Date End Date Sharan Gómez Jr., MD [address] [place] [address] PCP - General 08/10/05 documented as of this encounter
--- OUTSIDE RECORDS SUMMARY | 2025-08-01 23:20 | XMS_ITS | Encounter Summary ---
Author Organization [facility] Address [address] [place] [address] Care Team Providers Care Grinder Set Up Operator Jig Name Role Phone Rico Muñiz MD, Sharan Jaime Primary Care Provider Encounter Details Date Type Department Care Team (Latest Contact Info) Description 06/20/1999 Outpatient Historical [facility] [address] [place] [phone] Serge Arrington MD [address] [place] [address] Mitral valve disorder (Primary Dx); Unspecified essential hypertension; Other and unspecified hyperlipidemia; Hematuria Social History Tobacco Use Types Packs/Day Years Used Date Smoking Tobacco: Never Assessed Comments Unknown Sex and Gender Information Value Date Recorded Sex Assigned at Not on file Legal Sex Female 5:42 AM DOPE WORKER Gender Identity Not on file Sexual Orientation Not on file documented as of this encounter Plan of Treatment Not on file documented as of this encounter Visit Diagnoses Diagnosis Mitral valve disorder- Primary Mitral valve disorders Unspecified essential hypertension Other and unspecified hyperlipidemia Hematuria documented in this encounter Care Teams Grinder Set Up Operator Jig Relationship Specialty Start Date End Date Sharan Gómez Jr., MD [address] [place] [phone] PCP - General 08/10/05 documented as of this encounter
--- OUTSIDE RECORDS SUMMARY | 2025-08-01 23:20 | XMS_ITS | Encounter Summary ---
Author Organization [facility] Address [address] [place] [address] Care Team Providers Care Veterinary Dentist Name Role Phone Rico Muñiz MD, Sharan Jaime Primary Care Provider Encounter Details Date Type Department Care Team (Latest Contact Info) Description 03/18/1999 Outpatient Historical [facility] Sharan Gómez Jr., MD [address] [place] [address] Endocarditis, valve unspecified, unspecified cause (Primary Dx); termite inspector (current) use of anticoagulants Social History Tobacco Use Types Packs/Day Years Used Date Smoking Tobacco: Never Assessed Comments Unknown Sex and Gender Information Value Date Recorded Sex Assigned at Not on file Legal Sex Female 5:[address] ADMINISTRATOR Gender Identity Not on file Sexual Orientation Not on file documented as of this encounter Plan of Treatment Not on file documented as of this encounter Visit Diagnoses Diagnosis Endocarditis, valve unspecified, unspecified cause- Primary termite inspector (current) use of anticoagulants Long-term (current) use of anticoagulants documented in this encounter Care Teams Veterinary Dentist Relationship Specialty Start Date End Date Sharan Gómez Jr., MD [address] [place] [address] PCP - General 08/10/05 documented as of this encounter
--- OUTSIDE RECORDS SUMMARY | 2025-08-01 23:20 | XMS_ITS | Encounter Summary ---
Author Organization [facility] Address [address] [place] [address] Care Team Providers Care Wood Panel Inspector Name Role Phone Rico Muñiz MD, Sharan Jaime Primary Care Provider Encounter Details Date Type Department Care Team (Latest Contact Info) Description 08/10/2005 Outpatient Historical [facility] Endoscopy Rebeca [address] [place] [address] Bill Negron MD [address] [place] [address] INT HEMORRHOID W/O COMPL (Primary Dx) Social History Tobacco Use Types Packs/Day Years Used Date Smoking Tobacco: Never Assessed Comments Unknown Sex and Gender Information Value Date Recorded Sex Assigned at Not on file Legal Sex Female 5:42 AM BAGGAGE SECURITY CHECKER Gender Identity Not on file Sexual [...] Primary documented in this encounter Care Teams Wood Panel Inspector Relationship Specialty Start Date End Date Sharan Gómez Jr., MD [address] [place] [address] PCP - General 08/10/05 documented as of this encounter
--- OUTSIDE RECORDS SUMMARY | 2025-08-01 23:20 | XMS_ITS | Encounter Summary ---
Author Organization [facility] Address [address] [place] [address] Care Team Providers Care Customer Experience Leader Name Role Phone Rico Muñiz MD, Sharan Jaime Primary Care Provider Encounter Details Date Type Department Care Team (Late st Contact Info) Description 2020 Lab Requisition [facility] Laboratory Services [address] [place] [phone] Tabatha Lynn, [facility] [address] [place] [address] Social History Tobacco Use Types Packs/Day Years Used Date Smoking Tobacco: Never Assessed Comments Unknown Sex and Gender Information Value Date Recorded Sex Assigned at Not on file Legal Sex Female 5:42 AM CATERING OPERATIONS MANAGER Gender Identity Not on file Sexual Orientation Not on file documented as of this encounter Plan of Treatment Not on file documented as of this encounter Procedures Procedure Name Priority Date/Time Associated Diagnosis Comments PROTIME-INR Routine 2020 6:14 AM CATERING OPERATIONS MANAGER documented in this encounter Results * (ABNORMAL) PROTIME-INR (2020 6:14 AM CATERING OPERATIONS MANAGER) PROTIME 23.0(H) 11.9 - 15.5 Seconds 2020 7:28 PM CATERING OPERATIONS MANAGER [facility] LABORATORY [facility] INR 2.0(H) 0.8 - 1.2 2020 7:28 PM CATERING OPERATIONS MANAGER [facility] Barnana [facility] Blood Collection / Unknown 2020 6:14 AM CATERING OPERATIONS MANAGER 2020 7:05 PM CATERING OPERATIONS MANAGER Narrative [facility] - 2020 7:28 PM CATERING OPERATIONS MANAGER Expected Values for INR: DVT/PE Goal INR [...] pharmacy [facility], Pharm D. Tabatha Neff DIRECTOR CRITICAL CARE HEMATOLOGY ORDERABLES Final Result Performing Organization Address City/State/[facility] Co de Phone Number [facility] [address] [place] [address] documented in this encounter Visit Diagnoses Not on filedocumented in this encounter Care Teams Customer Experience Leader Relationship Specialty Start Date End Date Sahran Gómez Jr., MD [address] [place] [address] PCP - General 08/10/05 documented as of this encounter
--- OUTSIDE RECORDS SUMMARY | 2025-08-01 23:20 | XMS_ITS | Encounter Summary ---
Author Organization [facility] Address [address] [place] [address] Care Team Providers Care Dike Supervisor Name Role Phone Rico Muñiz MD, Sharan Jaime Primary Care Provider Encounter Details Date Type Department Care Team (Latest Contact Info) Description 11/25/1999 Outpatient Historical [facility] Sharan Gómez Jr., MD [address] [place] [address] Epistaxis (Primary Dx); [facility]FP (current) use of anticoagulants Social History Tobacco Use Types Packs/Day Years Used Date Smoking Tobacco: Never Assessed Comments Unknown Sex and Gender Information Value Date Recorded Sex Assigned at Not on file Legal Sex Female 5:42 AM GEARMAN Gender Identity Not on file Sexual Orientation Not on file documented as of this encounter Plan of Treatment Not on file documented as of this encounter Visit Diagnoses Diagnosis Epistaxis- Primary MCFP (current) use of anticoagulants Long-term (current) use of anticoagulants documented in this encounter Care Teams Dike Supervisor Relationship Specialty Start Date End Date Sharan Gómez Jr., MD [address] [place] [address] PCP - General 08/10/05 documented as of this encounter
--- OUTSIDE RECORDS SUMMARY | 2025-08-01 23:20 | XMS_ITS | Encounter Summary ---
Author Organization [facility] Address [address] [place] [address] Care Team Providers Care Shingle Catcher Name Role Phone Rico Muñiz MD, Sharan Jaime Primary Care Provider Encounter Details Date Type Department Care Team (Latest Contact Info) Description 10/10/1999 Outpatient Historical [facility] Sharan Gómez Jr., MD [address] [place] [address] Unspecified circulatory system disorder (Primary Dx); Unspecified essential hypertension; manager operations and procurement (current) use of anticoagulants Social History Tobacco Use Types Packs/Day Years Used Date Smoking Tobacco: Never Assessed Comments Unknown Sex and Gender Information Value Date Recorded Sex Assigned at Not on file Legal Sex Female 5:42 AM FIRE TECHNOLOGY INSTRUCTOR Gender Identity Not on file Sexual Orientation Not on file documented as of this encounter Plan of Treatment Not on file documented as of this encounter Visit Diagnoses Diagnosis Unspecified circulatory system disorder- Primary Unspecified essential hypertension manager operations and procurement (current) use of anticoagulants Long-term (current) use of anticoagulants documented in this encounter Care Teams Shingle Catcher Relationship Specialty Start Date End Date Sharan Gómez Jr., MD [address] [place] [address] PCP - General 08/10/05 documented as of this encounter
--- OUTSIDE RECORDS SUMMARY | 2025-08-01 23:20 | XMS_ITS | Encounter Summary ---
Author Organization [facility] Address [address] [place] [address] Care Team Providers Care Drafter Plumbing Name Role Phone Rico Muñiz MD, Sharan Jaime Primary Care Provider Encounter Details Date Type Department Care Team (Latest Contact Info) Description 04/12/2001 Outpatient Historical [facility] Sharan Gómez Jr., MD [address] [place] [address] Osteoarthrosis, unspecified whether generalized or localized, unspecified site (Primary Dx); Heart valve replaced by other means; MCFP (current) use of anticoagulants Social History Tobacco Use Types Packs/Day Years Used Date Smoking Tobacco: Never Assessed Comments Unknown Sex and Gender Information Value Date Recorded Sex Assigned at Not on file Legal Sex Female 5:42 AM APPLE PEELER OPERATOR Gender Identity Not on file Sexual Orientation Not on file documented as of this encounter Plan of Treatment Not on file documented as of this encounter Visit Diagnoses Diagnosis Osteoarthrosis, unspecified whether generalized or localized, unspecified site- Primary Heart valve replaced by other means MCFP (current) use of anticoagulants Long-term (current) use of anticoagulants documented in this encounter Care Teams Drafter Plumbing Relationship Specialty Start Date End Date Sharan Gómez Jr., MD [address] [place] [address] PCP - General 08/10/05 documented as of this encounter
--- OUTSIDE RECORDS SUMMARY | 2025-08-01 23:20 | XMS_ITS | Encounter Summary ---
Author Organization [facility] Address [address] [facility] Attn: [place] [address] Care Team Providers Care Hog Ringer Name Role Phone Rico Muñiz MD, Sharan Jaime Primary Care Provider Encounter Details Date Type Department Care Team (Late st Contact Info) Description 01/04/2001 Outpatient Historical Sharan Gómez Jr., MD [address] [place] [address] Social History Tobacco Use Types Packs/Day Years Used Date Smoking Tobacco: Never Assessed Comments Unknown Sex and Gender Information Value Date Recorded Sex Assigned at Not on file Legal Sex Female 5:42 AM FOOD SERVICE SUBSTITUTE Gender Identity Not on file Sexual Orientation Not on file documented as of this encounter Plan of Treatment Not on file documented as of this encounter Visit Diagnoses Not on filedocumented in this encounter Care Teams Hog Ringer Relationship Specialty Start Date End Date Sharan Gómez Jr., MD [address] [place] [address] PCP - General 08/10/05 documented as of this encounter
--- OUTSIDE RECORDS SUMMARY | 2025-08-01 23:20 | XMS_ITS | Encounter Summary ---
Author Organization [facility] Address [address] [place] [address] Care Team Providers Care Special Programs Director Name Role Phone Rico Muñiz MD, Sharan Jaime Primary Care Provider Encounter Details Date Type Department Care Team (Latest Contact Info) Description 05/24/2000 Outpatient Historical [facility] Sharan Gómez Jr., MD [address] [place] [address] Unspecified essential hypertension (Primary Dx); Osteoporosis, unspecified Social History Tobacco Use Types Packs/Day Years Used Date Smoking Tobacco: Never Assessed Comments Unknown Sex and Gender Information Value Date Recorded Sex Assigned at Not on file Legal Sex Female 5:42 AM PEDIATRIC REGISTERED NURSE Gender Identity Not on file Sexual Orientation Not on file documented as of this encounter Plan of Treatment Not on file documented as of this encounter Visit Diagnoses Diagnosis Unspecified essential hypertension- Primary Osteoporosis, unspecified documented in this encounter Care Teams Special Programs Director Relationship Specialty Start Date End Date Sharan Gómez Jr., MD [address] [place] [address] PCP - General 08/10/05 documented as of this encounter
--- OUTSIDE RECORDS SUMMARY | 2025-08-01 23:20 | XMS_ITS | Encounter Summary ---
Author Organization [facility] Address [address] [place] [address] Care Team Providers Care Final Armature Tester Name Role Phone Rico Muñiz MD, Sharan Jaime Primary Care Provider Encounter Details Date Type Department Care Team (Latest Contact Info) Description 01/04/2001 Outpatient Historical [facility] Sharan Gómez Jr., MD [address] [place] [address] Acute upper respiratory infections of unspecified site (Primary Dx); rn long term care (current) use of anticoagulants Social History Tobacco Use Types Packs/Day Years Used Date Smoking Tobacco: Never Assessed Comments Unknown Sex and Gender Information Value Date Recorded Sex Assigned at Not on file Legal Sex Female 5:42 AM GUT PULLER Gender Identity Not on file Sexual Orientation Not on file documented as of this encounter Plan of Treatment Not on file documented as of this encounter Visit Diagnoses Diagnosis Acute upper respiratory infections of unspecified site- Primary rn long term care (current) use of anticoagulants Long-term (current) use of anticoagulants documented in this encounter Care Teams Final Armature Tester Relationship Specialty Start Date End Date Sharan Gómez Jr., MD [address] [place] [address] PCP - General 08/10/05 documented as of this encounter
--- OUTSIDE RECORDS SUMMARY | 2025-08-01 23:20 | XMS_ITS | Encounter Summary ---
Author Organization [facility] Address [address] [facility] Attn: [place] [address] Care Team Providers Care Kiln Mechanic Name Role Phone Rico Muñiz MD, Sharan Jaime Primary Care Provider Encounter Details Date Type Department Care Team (Late st Contact Info) Description 02/15/2001 Outpatient Historical Sharan Gómez Jr., MD [address] [place] [address] Social History Tobacco Use Types Packs/Day Years Used Date Smoking Tobacco: Never Assessed Comments Unknown Sex and Gender Information Value Date Recorded Sex Assigned at Not on file Legal Sex Female 5:42 AM QUALITY CONTROL SPECIALIST Gender Identity Not on file Sexual Orientation Not on file documented as of this encounter Plan of Treatment Not on file documented as of this encounter Visit Diagnoses Not on filedocumented in this encounter Care Teams Kiln Mechanic Relationship Specialty Start Date End Date Sharan Gómez Jr., MD [address] [place] [address] PCP - General 08/10/05 documented as of this encounter
--- OUTSIDE RECORDS SUMMARY | 2025-08-01 23:20 | XMS_ITS | Encounter Summary ---
Author Organization [facility] Address [address] [place] [address] Care Team Providers Care Senior Civil Engineer Name Role Phone Rico Muñiz MD, Sharan Jaime Primary Care Provider Encounter Details Date Type Department Care Team (Latest Contact Info) Description 06/21/2000 Outpatient Historical [facility] AFaisal Lopez [address] [place] [phone] Serge Arrington MD [address] [place] [address] Mitral valve disorder (Primary Dx); Unspecified essential hypertension; Unspecified gastritis and gastroduodenitis without mention of hemorrhage Social History Tobacco Use Types Packs/Day Years Used Date Smoking Tobacco: Never Assessed Comments Unknown Sex and Gender Information Value Date Recorded Sex Assigned at Not on file Legal Sex Female 5:42 AM COMPUTER RECYCLING WORKER Gender Identity Not on file Sexual Orientation Not on file documented as of this encounter Plan of Treatment Not on file documented as of this encounter Visit Diagnoses Diagnosis Mitral valve disorder- Primary Mitral valve disorders Unspecified essential hypertension Unspecified gastritis and gastroduodenitis without mention of hemorrhage documented in this encounter Care Teams Senior Civil Engineer Relationship Specialty Start Date End Date Sharan Gómez Jr., MD [address] [place] [address] PCP - General 08/10/05 documented as of this encounter
--- OUTSIDE RECORDS SUMMARY | 2025-08-01 23:20 | XMS_ITS | Encounter Summary ---
Author Organization [facility] Address [address] [place] [address] Care Team Providers Care Histologic Technician Name Role Phone Rico Muñiz MD, Sharan Jaime Primary Care Provider Encounter Details Date Type Department Care Team (Latest Contact Info) Description 04/01/1999 Outpatient Historical [facility] Sharan Gómez Jr., MD [address] [place] [address] Type II or unspecified type diabetes mellitus without mention of complication, not stated as uncontrolled (Primary Dx); Dietary surveil/litigation counsel Social History Tobacco Use Types Packs/Day Years Used Date Smoking Tobacco: Never Assessed Comments Unknown Sex and Gender Information Value Date Recorded Sex Assigned at Not on file Legal Sex Female 5:42 AM LOANS OFFICER Gender Identity Not on file Sexual Orientation Not on file documented as of this encounter Plan of Treatment Not on file documented as of this encounter Visit Diagnoses Diagnosis Type II or unspecified type diabetes mellitus without mention of complication, not stated as uncontrolled- Primary Dietary surveil/litigation counsel Dietary surveillance and counseling documented in this encounter Care Teams Histologic Technician Relationship Specialty Start Date End Date Sharan Gómez Jr., MD [address] [place] [address] PCP - General 08/10/05 documented as of this encounter
--- OUTSIDE RECORDS SUMMARY | 2025-08-01 23:20 | XMS_ITS | Encounter Summary ---
Author Organization [facility] Address [address] [place] [address] Care Team Providers Care Caregivers Homecare Name Role Phone Rico Muñiz MD, Sharan Jaime Primary Care Provider Encounter Details Date Type Department Care Team (Latest Contact Info) Description 07/18/1999 Outpatient Historical [facility] Sharan Gómez Jr., MD [address] [place] [address] Skin sensation disturb (Primary Dx); Headache(784.0); half-way (current) use of anticoagulants Social History Tobacco Use Types Packs/Day Years Used Date Smoking Tobacco: Never Assessed Comments Unknown Sex and Gender Information Value Date Recorded Sex Assigned at Not on file Legal Sex Female 5:42 AM LPN OR MEDICAL ASSISTANT Gender Identity Not on file Sexual Orientation Not on file documented as of this encounter Plan of Treatment Not on file documented as of this encounter Visit Diagnoses Diagnosis Skin sensation disturb- Primary Disturbance of skin sensation Headache(784.0) Headache half-way (current) use of anticoagulants Long-term (current) use of anticoagulants documented in this encounter Care Teams Caregivers Homecare Relationship Specialty Start Date End Date Sharan Gómez Jr., MD [address] [place] [address] PCP - General 08/10/05 documented as of this encounter
--- OUTSIDE RECORDS SUMMARY | 2025-08-01 23:20 | XMS_ITS | Encounter Summary ---
Author Organization [facility] Address [address] [place] [address] Care Team Providers Care Food Technologist Name Role Phone Rico Muñiz MD, Sharan Jaime Primary Care Provider Encounter Details Date Type Department Care Team (Late st Contact Info) Description 10/16/2020 Lab Requisition [facility] General Laboratory Services [place] [address] [place] [phone] Mtnv, External Provider [address] [facility] [address] [place] [address] Social History Tobacco Use Types Packs/Day Years Used Date Smoking Tobacco: Never Assessed Comments Unknown Sex and Gender Information Value Date Recorded Sex Assigned at Not on file Legal Sex Female 5:42 AM ORDER TAKER Gender Identity Not on file Sexual Orientation Not on file documented as of this encounter Plan of Treatment Not on file documented as of this encounter Procedures Procedure Name Priority Date/Time Associated Diagnosis Comments PROTIME-INR Routine 10/16/2020 10:20 AM ORDER TAKER documented in this encounter Results * (ABNORMAL) PROTIME-INR (10/16/2020 10:20 AM ORDER TAKER) PROTIME 42.0(H) 12.0 - 14.4 Seconds 10/16/2020 12:05 PM ORDER TAKER [facility] INR 4.7(H) 0.8 - 1.2 10/16/2020 12:05 PM ORDER TAKER [facility] Blood 10/16/2020 10:2 0 AM ORDER TAKER 10/16/2020 11:47 AM ORDER TAKER us External Provider Mtnv HEMATOLOGY ORDERABLES Fin al Result [facility] CLIA # [id number] [address] [place] [address] documented in this encounter Visit Diagnoses Not on filedocumented in this encounter Care Teams Food Technologist Relationship Specialty Start Date End Date Sharan Gómez Jr., MD [address] [place] [address] PCP - General 08/10/05 documented as of this encounter
--- OUTSIDE RECORDS SUMMARY | 2025-08-01 23:20 | XMS_ITS | Encounter Summary ---
Author Organization [facility] Address [address] [place] [address] Care Team Providers Care Pot Reliner Name Role Phone Rico Muñiz MD, Sharan Jaime Primary Care Provider Encounter Details Date Type Department Care Team (Late st Contact Info) Description 07/26/1999 Outpatient Historical [facility] Cardiology- [place] [address] [place] [phone] [place] [facility] [address] [facility] [place] [address] Pain in limb (Primary Dx); Heart valve replaced by other means Social History Tobacco Use Types Packs/Day Years Used Date Smoking Tobacco: Never Assessed Comments Unknown Sex and Gender Information Value Date Recorded Sex Assigned at Not on file Legal Sex Female 5:42 AM PLACEMENT SPECIALIST Gender Identity Not on file Sexual Orientation Not on file documented as of this encounter Plan of Treatment Not on file documented as of this encounter Visit Diagnoses Diagnosis Pain in limb- Primary Pain in soft tissues of limb Heart valve replaced by other means documented in this encounter Care Teams Pot Reliner Relationship Specialty Start Date End Date Sharan Gómez Jr., MD [address] [place] [address] PCP - General 08/10/05 documented as of this encounter
--- OUTSIDE RECORDS SUMMARY | 2025-08-01 23:20 | XMS_ITS | Encounter Summary ---
Author Organization [facility] Address [address] [place] [address] Care Team Providers Care Property Developer Name Role Phone Rico Muñiz MD, Sharan Jaime Primary Care Provider Encounter Details Date Type Department Care Team (Latest Contact Info) Description 06/20/1999 Outpatient Historical [facility] Echocardiography - [place] [address] [place] [address] X358 Serge Arrington MD [address] [address] Painful respiration (Primary Dx); Precordial pain; Other dyspnea and respiratory abnormality Social History Tobacco Use Types Packs/Day Years Used Date Smoking Tobacco: Never Assessed Comments Unknown Sex and Gender Information Value Date Recorded Sex Assigned at Not on file Legal Sex Female 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
--- OUTSIDE RECORDS SUMMARY | 2025-08-01 23:20 | XMS_ITS | Encounter Summary ---
Author Organization [facility] Address [address] [place] [address] Care Team Providers Care Executive Kitchen Manager Name Role Phone Rico Muñiz MD, Sharan Jaime Primary Care Provider Encounter Details Date Type Department Care Team (Latest Contact Info) Description 05/18/1999 Outpatient Historical [facility] Sharan Gómez Jr., MD [address] [place] [address] Osteoarthrosis, unspecified whether generalized or localized, unspecified site (Primary Dx); retirement (current) use of anticoagulants; Heart valve replaced by other means Social History Tobacco Use Types Packs/Day Years Used Date Smoking Tobacco: Never Assessed Comments Unknown Sex and Gender Information Value Date Recorded Sex Assigned at Not on file Legal Sex Female 5:42 AM AIR DRIER Gender Identity Not on file Sexual Orientation Not on file documented as of this encounter Plan of Treatment Not on file documented as of this encounter Visit Diagnoses Diagnosis Osteoarthrosis, unspecified whether generalized or localized, unspecified site- Primary terminologist (current) use of anticoagulants Long-term (current) use of anticoagulants Heart valve replaced by other means documented in this encounter Care Teams Executive Kitchen Manager Relationship Specialty Start Date End Date Sharan Gómez Jr., MD [address] [place] [address] PCP - General 08/10/05 documented as of this encounter
--- OUTSIDE RECORDS SUMMARY | 2025-08-01 23:20 | XMS_ITS | Encounter Summary ---
Author Organization [facility] Address [address] [place] [address] Care Team Providers Care Director Of Operations Name Role Phone Rico Muñiz MD, Sharan Jaime Primary Care Provider Encounter Details Date Type Department Care Team (Latest Contact Info) Description 02/29/2000 Outpatient Historical [facility] Sharan Gómez Jr., MD [address] [place] [address] Pure hypercholesterolem (Primary Dx); Heart valve replaced by other means; Osteoporosis, unspecified; skilled nursing (current) use of anticoagulants Social History Tobacco Use Types Packs/Day Years Used Date Smoking Tobacco: Never Assessed Comments Unknown Sex and Gender Information Value Date Recorded Sex Assigned at Not on file Legal Sex Female 5:42 AM INFORMATION TECHNOLOGY 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 Gender Identity Not on file Sexual Orientation Not on file documented as of this encounter Plan of Treatment Not on file documented as of this encounter Visit Diagnoses Diagnosis Pure hypercholesterolem- Primary Pure hypercholesterolemia Heart valve replaced by other means Osteoporosis, unspecified manager terminal (current) use of anticoagulants Long-term (current) use of anticoagulants documented in this encounter Care Teams Director Of Operations Relationship Specialty Start Date End Date Sharan Gómez Jr., MD [address] [place] [address] PCP - General 08/10/05 documented as of this encounter
--- OUTSIDE RECORDS SUMMARY | 2025-08-01 23:20 | XMS_ITS | Encounter Summary ---
Author Organization [facility] Address [address] [place] [address] Care Team Providers Care Intern Product Marketing Manager Name Role Phone Rico Muñiz MD, Sharan Jaime Primary Care Provider Encounter Details Date Type Department Care Team (Late st Contact Info) Description 10/18/2020 Lab Requisition [facility] Laboratory Services [address] [place] [address] Tabatha Lynn, [facility] [address] [place] [address] Social History Tobacco Use Types Packs/Day Years Used Date Smoking Tobacco: Never Assessed Comments Unknown Sex and Gender Information Value Date Recorded Sex Assigned at Not on file Legal Sex Female 5:42 AM SURGICAL CONSULTANT Gender Identity Not on file Sexual Orientation Not on file documented as of this encounter Plan of Treatment Not on file documented as of this encounter Procedures Procedure Name Priority Date/Time Associated Diagnosis Comments PROTIME-INR Routine 10/18/2020 6:34 AM SURGICAL CONSULTANT documented in this encounter Results * (ABNORMAL) PROTIME-INR (10/18/2020 6:34 AM SURGICAL CONSULTANT) PROTIME 34.1(H) 11.9 - 15.5 Seconds 10/18/2020 5:19 PM SURGICAL CONSULTANT [facility] INR 3.2(H) 0.8 - 1.2 10/18/2020 5:19 PM SURGICAL CONSULTANT [facility] Blood Collection / Unknown 10/18/2020 6:34 AM SURGICAL CONSULTANT 10/18/2020 4:57 PM SURGICAL CONSULTANT Narrative [facility] - 10/18/2020 5:19 PM SURGICAL CONSULTANT Expected Values for INR: DVT/PE Goal INR 2.5; range 2.0 - 3.0 Valve Replacement Tissue Goal INR 2.5; range 2.0 - 3.0 Valve Replacement Mechanical Goal INR 3.0; range 2.5 - 3.5 POST-NJ Goal INR 2.5; range 2.0 - 3.0 or Goal INR 3.0; range 2.5 - 3.5 Atrial Fibrillation Goal INR 2.5; range 2.0 - 3.0 Ischemic Stroke Goal INR 2.5; range 2.0 - 3.0 For additional information see Guidelines for Anticoagulation available from the pharmacy Aspen Mitchell, Pharm D. Tabatha Neff FINANCE INTERN HEMATOLOGY ORDERABLES Final Result [facility] [address] [place] [address] documented in this encounter Visit Diagnoses Not on filedocumented in this encounter Care Teams Intern Product Marketing Manager Relationship Specialty Start Date End Date Sharan Gómez Jr., MD [address] [place] [address] PCP - General 08/10/05 documented as of this encounter
--- OUTSIDE RECORDS SUMMARY | 2025-08-01 23:20 | XMS_ITS | Clinical Summary ---
Author Organization [facility] Address [address] [place] [address] Phone Care Team Providers Care Manager Med Surg Name Role Phone Rico Muñiz MD, Sharan Jaime Primary Care Provider Immunizations Immunization Administration Dates Next Due (PNEUMOVAX 23)(50 YRS UP) PN EUMOCOCCAL POLYSACCHARIDE (PPV23) 0.5 ML, IM 06/26/2003 Social History Tobacco Use Types Packs/Day Years Used Date Smoking Tobacco: Never Assessed Comments Unknown Sex and Gender Information Value Date Recorded Sex Assigned at Not on file Legal Sex Female 5:42 AM RX SPECIALIST Gender Identity Not on file Sexual [...] [employer] [place] [place] Care Teams Manager Med Surg Relationship Specialty Start Date End Date Sharan Gómez Jr., MD [address] [place] [address] PCP - General 08/10/05
--- OUTSIDE RECORDS SUMMARY | 2025-08-01 23:20 | XMS_ITS | Encounter Summary ---
Author Organization [facility] Address [address] [place] [address] Care Team Providers Care Strategic Planning Analyst Name Role Phone Rico Muñiz MD, Sharan Jaime Primary Care Provider Encounter Details Date Type Department Care Team (Latest Contact Info) Description 10/01/2000 Outpatient Historical [facility] Sharan Gómez Jr., MD [address] [place] [address] Endocarditis, valve unspecified, unspecified cause (Primary Dx); Other and unspecified hyperlipidemia; Osteoarthrosis, unspecified whether generalized or localized, unspecified site Social History Tobacco Use Types Packs/Day Years Used Date Smoking Tobacco: Never Assessed Comments Unknown Sex and Gender Information Value Date Recorded Sex Assigned at Not on file Legal Sex Female 5:42 AM CAREER AND 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
--- NOTE | 2025-08-01 23:25 | XRR_ITS ---
PROCEDURE INFORMATION: Exam: XR Chest Exam date and time: 08/01/2025 11:29 PM Age: 74 years old Clinical indication: Chest pressure; Prior surgery; Surgery date: 6+ months; Surgery type: Mitral valve. Coronary stents; C/O chest pain TECHNIQUE: Imaging protocol: Radiologic exam of the chest. Views: 1 view. COMPARISON: CR XR chest 1V portable [id number] 07/27/2025 10:58 AM FINDINGS: Lungs: Central and bibasilar predominant interstitial prominence is present. No confluent consolidation. Pleural spaces: Unremarkable. No pleural effusion. No pneumothorax. Heart/Mediastinum: Unremarkable. No cardiomegaly. Vasculature: Atherosclerotic changes of the aorta are noted. Bones/joints: Postoperative changes from median sternotomy are noted. Sternotomy wires are well aligned. XR/XR chest 1V portable [id number] IMPRESSION: Findings suggestive of mild pulmonary edema or interstitial pneumonia.
--- NOTE | 2025-08-01 23:25 | ECG_ITS ---
[employer] Test Date: 2025-08-01 Pat Name: Odilia Ulloa Department: Room: Gender: Female Power Press Tender: : 1950 Requested By: Charlie Simmons Order Number: [id number] Supriya MD: Katrin Petit M.D. Measurements Intervals [place] Rate: 71 P: 0 MS: 0 QRS: 9 QRSD: 128 T: 8 QT: 418 QTc: 455 Interpretive Statements ATRIAL FIBRILLATION POSSIBLE RIGHT VENTRICULAR CONDUCTION DELAY [RSR (QR) IN V1/V2] ABNORMAL RHYTHM ECG Compared to ECG 07/27/2025 12:53:54 Intraventricular conduction delay no longer present Electronically Signed On 08-02-2025 21:29:17 CDT by Katrin Petit M.D. [email or web address]
[2025-08-01 23:41] LABS: Hematocrit 35.1 % (36-47); Hemoglobin 11.30 g/dL (11.27-16.99); Mean Corpuscular HGB Conc 32.2 g/dL (30-55); Mean Corpuscular Hemoglobin 34.9 pg (27-33); Mean Corpuscular Volume 108.3 fl (85-98); Nucleated Red Blood Cells % 0 %; Platelet Count 213 10^3/cmm (157-399); Red Blood Count 3.24 10^6/uL (3.85-5.65); White Blood Count 5.27 10^3/uL (3.29-11.43)
[2025-08-01 23:55] LABS: Alanine Aminotransferase 13 U/L (0-33); Albumin Level 4.6 g/dL (3.5-5.2); Alkaline Phosphatase 103 U/L (35-105); Anion Gap 12.4 (5-19); Aspartate Amino Transferase 20 U/L (0-32); Blood Urea Nitrogen 19 mg/dL (8-23); Calcium 10.1 mg/dL (8.5-10.5); Carbon Dioxide 27 mmol/L (22-29); Chloride 103 mmol/L (98-107); Creatinine Clr Calc Pharmacy 49.2987; Globulin 2.9 g/dL (1.3-4.6); Glucose 91 mg/dL (65-115); Osmolality Calculated 288 mOsm/kg (285-295); Potassium 4.4 mmol/L (3.5-5.1); Sodium 138 mmol/L (136-145); Total Protein 7.5 g/dL (6.6-8.7)
[2025-08-01 23:57] LABS: Troponin(5th) Baseline 13 ng/L (0-10)
[2025-08-02 00:21] LABS: Respiratory Syncytial Virus Ce NEGATIVE (Negative); SARS-CoV-2 PCR NEGATIVE (Negative)
[2025-08-02] MEDS: ondansetron 2 mg/ML SDV 2 mL 4 MG IVP (00:40)
[2025-08-02 00:41] VITALS: RESP 16
[2025-08-02] MEDS: fentaNYL 50 mcg/mL INJ 2mL 25 MCG IVP (00:41)
--- NOTE | 2025-08-02 01:19 | W.ED.CHESTPA ---
HPI - Chest Pain General: Chief Complaint: Chest Pain Stated Complaint: cp Time Seen by Provider: 08/01/25 23:10 History of Present Illness: Patient is a 74-year-old female who presents with complaints of chest pain that started last night. She describes being hurt pretty bad with pain inside her chest. The patient reports that the chest pain has improved but is still present to a lesser degree. She has been experiencing shortness of breath and some coughing. Patient states that nitroglycerin provided some relief for her chest pain. She also reports swelling in her right foot approximately three days ago. Patient denies fever but endorses having diarrhea. She mentions being hospitalized recently for similar symptoms and expresses frustration about not receiving information about her test results from that admission. Patient states she was hospitalized for 3-4 days during that previous encounter. Related Data Home Medications ?Medication ?Instructions ?Recorded ?Confirmed nitroglycerin 0.4 mg sublingual 0.4 mg sublingual Q5M PRN chest 11/07/19 07/27/25 tablet (Nitrostat) pains levothyroxine 75 mcg tablet 75 mcg PO DAILY@0700 hypothyroidism 11/11/20 07/27/25 (Euthyrox) tramadol 50 mg tablet 50 mg PO Q6H PRN Pain 11/11/20 07/27/25 potassium chloride 20 mEq 20 meq PO BID@0700,1900 12/22/20 07/27/25 tablet,extended release meclizine 12.5 mg tablet 12.5 mg PO Q6H PRN nausea and 04/19/21 07/27/25 vomiting bismuth subsalicylate 525 mg/15 mL 525 mg PO Q8H PRN 08/15/21 07/27/25 oral suspension (Pepto-Bismol Max Nausea/vomiting/diarrhea St) mirtazapine 15 mg tablet 15 mg PO QAM 05/21/24 07/27/25 pantoprazole 40 mg tablet,delayed 40 mg PO QAM 12/05/24 07/27/25 release amiodarone 200 mg tablet 200 mg PO PRN PRN if blood 01/31/25 07/27/25 pressure is over 120 cetirizine 10 mg tablet (Zyrtec) 10 mg PO PRN PRN Allergy Symptoms 01/31/25 07/27/25 hydroxyzine HCl 25 mg tablet 25 mg PO TID PRN Anxiety 01/31/25 07/27/25 ipratropium bromide 42 mcg (0.06 2 spray intranasal TID PRN 01/31/25 07/27/25 %) nasal spray ALLERGIES magnesium hydroxide 400 mg/5 mL 30 ml PO PRN PRN bowel movemaent 01/31/25 07/27/25 oral suspension (Milk of Magnesia) polyethylene glycol 3350 17 17 g PO QAM Constipation 01/31/25 07/27/25 gram/dose oral powder (Miralax) warfarin 2.5 mg tablet See Rx Instructions .Route .COMPLEX 01/31/25 07/27/25 warfarin 3 mg tablet See Rx Instructions .Route .COMPLEX 05/27/25 07/27/25 folic acid 1 mg tablet 1 mg PO DAILY 06/22/25 07/27/25 acetaminophen 500 mg tablet 1,000 mg PO Q8H 06/25/25 07/27/25 awxae-poedezin-nzt-turp-pet 1 ea topical PRN PRN thick toe 06/25/25 07/27/25 topical ointment nails cyanocobalamin (vitamin B-12) 2,000 mcg sublingual DAILY 06/25/25 07/27/25 1,000 mcg sublingual tablet methyl salicylate 30 %-menthol 10 1 applic topical TID PRN sore 06/25/25 07/27/25 % topical cream (Icy Hot) muscles spironolactone 25 mg tablet 25 mg PO QAM 06/25/25 07/27/25 aspirin 81 mg tablet,delayed 81 mg PO DAILY 07/27/25 07/27/25 release ondansetron 4 mg disintegrating 4 mg PO Q6H PRN Nausea And Vomiting 07/27/25 07/27/25 tablet Previous Rx's ?Medication ?Instructions ?Recorded furosemide 40 mg tablet 60 mg (1.5 x 40 mg) PO DAILY@0700 05/18/23 edema #135 tabs metoprolol tartrate 100 mg tablet 100 mg PO BID #180 tabs 12/05/24 galantamine 8 mg 24 hr 8 mg PO QAM 90 days #90 caps 05/06/25 capsule,extended release memantine 5 mg tablet 5 mg PO BID #180 tabs 05/06/25 atorvastatin 40 mg tablet 40 mg PO BEDTIME #30 tabs 06/29/25 Allergies Allergy/AdvReac Type Severity Reaction Status Date / Time diltiazem (From Cardizem) Allergy Unknown Verified 06/23/25 10:03 morphine Allergy Unknown Verified 06/23/25 10:03 [facility] ED PFSH: Medical History Chronic anxiety History of iron deficiency anemia Alzheimer disease CKD (chronic kidney disease) stage 2, GFR 60-89 ml/min Hypertension CAD (coronary artery disease) CHF (congestive heart failure) Insomnia Hypothyroid Hyperlipidemia Chronic neck and back pain GERD (gastroesophageal reflux disease) Chronic atrial fibrillation Chronic constipation Surgical History History of heart artery stent Coronary angioplasty/stent placement in 2011 and in 2012 Hx of colonoscopy 2018 H/O esophagogastroduodenoscopy 2011, 2016, and 2018 S/P cholecystectomy H/O section Mitral valve replaced mechanical valve replacement 1994 Family History Other CAD (coronary artery disease) Diabetes Social History Smoking and tobacco/nicotine status: never used tobacco/nicotine Alcohol intake: never Substance/Drug Use: never Housing: Assisted Living Facility Marital status: Single Number of children: 1 Current occupational status: disabled Current gender identity: Female Female Reproductive History: Para: 1 Physical Exam Const: GENERAL APPEARANCE: cooperative; not ill appearing HENMT: COMMON NORMALS: normocephalic, atraumatic and Normal external nose present HEAD & SCALP: normocephalic and atraumatic FACE & SINUS: normal facial exam and face symmetric NOSE: Normal external nose present Eye: COMMON NORMALS: Equal, round and reactive pupils present and EOMs intact bilaterally PUPIL: Yes Equal, round and reactive pupils present Neck/C-Spine: GENERAL: Yes trachea midline Chest: CHEST: Yes Symmetrical chest wall rise Resp: COMMON NORMALS: normal respiratory effort, No retractions, No use of accessory muscles and clear to auscultation bilaterally AUSCULTATION: clear to auscultation bilaterally Cardio: COMMON NORMALS: regular rate and regular rhythm RATE: regular rate RHYTHM: regular rhythm GI: COMMON NORMALS: Normal to inspection, nondistended, normoactive bowel sounds present Extremity: COMMON NORMALS: no pedal edema Neuro: ANT COMA SCALE: document GCS findings Camino coma scale eye opening: Spontaneous Ant coma scale verbal response: Orientated Camino coma scale motor response: Obey commands Camino coma scale total score: 15 SENSORY EXAM: Yes extremities (intact) Psych: COMMON NORMALS: speech normal SPEECH: Yes normal speech Skin: COMMON NORMALS: no rashes or lesions noted GENERAL SKIN EXAM: no rashes or lesions noted Course Vital Signs: Vital signs: Vital Signs Temperature 97.9 F 08/01/25 23:19 Pulse Rate 86 08/02/25 01:42 Respiratory Rate 14 08/02/25 01:42 Blood Pressure 101/59 08/02/25 01:42 Pulse Oximetry 95 08/02/25 01:42 Oxygen Delivery Me thod Room Air 08/02/25 01:42 MDM - Chest Pain Medical Decision Making This lady has a history of severe triple-vessel disease. Last recommendation by cardiology was medical management. Chest x-ray shows mild pulmonary edema. CBC is normal. BMP is normal. Her delta troponin is -1. Pain is improved. She will be discharged home. Outpatient follow-up. Return for return of symptoms. EKG shows atrial fibrillation with a controlled rate of 70. QRS duration is 120 ms. QTc is normal. No acute ST-T wave changes. Lab Data 08/01/25 23:17 08/01/25 23:17 Radiology Impressions Chest X-Ray 08/01/25 23:25 IMPRESSION: Findings suggestive of mild pulmonary edema or interstitial pneumonia. Laboratory Results WBC 5.27 10^3/uL (3.29-11.43) 08/01/25 23:17 RBC 3.24 10^6/uL (3.85-5.65) L 08/01/25 23:17 Hgb 11.30 g/dL (11.27-16.99) 08/01/25 23:17 Hct 35.1 % (36-47) L 08/01/25 23:17 MCV 108.3 fl (85-98) H 08/01/25 23:17 MCH 34.9 pg (27-33) H 08/01/25 23:17 MCHC 32.2 g/dL (30-55) 08/01/25 23:17 RDW 13.2 % (12.1-15.1) 08/01/25 23:17 Plt Count 213 10^3/cmm (157-399) 08/01/25 23:17 MPV 9.7 fL (7.4-10.4) 08/01/25 23:17 Neut % (Auto) 38.1 % 08/01/25 23:17 Lymph % (Auto) 41.4 % 08/01/25 23:17 Carroll % (Auto) 11.0 % 08/01/25 23:17 Eos % (Auto) 8.0 % 08/01/25 23:17 Baso % (Auto) 1.3 % 08/01/25 23:17 Neut # (Auto) 2.01 10^3/uL (1.8-7.7) 08/01/25 23:17 Lymph # (Auto) 2.2 10^3/uL (0.8-4.8) 08/01/25 23:17 Carroll # (Auto) 0.6 10^3/uL (0.2-0.9) 08/01/25 23:17 Eos # (Auto) 0.4 10^3/uL (0.0-0.8) 08/01/25 23:17 Baso # (Auto) 0.1 10^3/uL (0.0-0.1) 08/01/25 23:17 Nucleated RBC % (auto) 0 % 08/01/25 23:17 Nucleated RBCs # 0.0 /100WBC 08/01/25 23:17 PT 21.10 SECONDS (12.1-14.9) H 08/01/25 23:17 INR 1.71 (0.8-1.2) H 08/01/25 23:17 Sodium 138 mmol/L (136-145) 08/01/25 23:17 Potassium 4.4 mmol/L (3.5-5.1) 08/01/25 23:17 Chloride 103 mmol/L (98-107) 08/01/25 23:17 Carbon Dioxide 27 mmol/L (22-29) 08/01/25 23:17 Anion Gap 12.4 (5-19) 08/01/25 23:17 BUN 19 mg/dL (8-23) 08/01/25 23:17 Creatinine 0.9 mg/dL (0.5-0.9) 08/01/25 23:17 GFR Calculation Not Reportable 08/01/25 23:17 Glucose 91 mg/dL (65-115) 08/01/25 23:17 Calculated Osmolality 288 mOsm/kg (285-295) 08/01/25 23:17 Calcium 10.1 mg/dL (8.5-10.5) 08/01/25 23:17 Total Bilirubin 0.8 mg/dL (0.15-1.2) 08/01/25 23:17 AST 20 U/L (0-32) 08/01/25 23:17 ALT 13 U/L (0-33) 08/01/25 23:17 Alkaline Phosphatase 103 U/L (35-105) 08/01/25 23:17 Troponin T Baseline 13 ng/L (0-10) H 08/01/25 23:17 Troponin T 120 Minute 11.88 ng/L (0-10) H 08/02/25 00:54 Delta Troponin T -1.12 ABS# (0-10) L 08/02/25 00:54 Total Protein 7.5 g/dL (6.6-8.7) 08/01/25 23:17 Albumin 4.6 g/dL (3.5-5.2) 08/01/25 23:17 Globulin 2.9 g/dL (1.3-4.6) 08/01/25 23:17 Influenza A (PCR) Negative (Negative) 08/01/25 23:17 Influenza Type B (PCR) Negative (Negative) 08/01/25 23:17 RSV (PCR) Negative (Negative) 08/01/25 23:17 SARS-CoV-2 (PCR) Negative (Negative) 08/01/25 23:17 All radiology interpretation(s) finalized by discharge Discharge Plan Discharge Patient Disposition: Home Clinical Impression: Atypical chest pain Condition: Stable Prescriptions: No Action nitroglycerin [Nitrostat] 0.4 mg tablet, sublingual 0.4 mg SUBLINGUAL Q5M PRN (Reason: chest pains) Pepto-Bismol Max St 525 mg/15 mL suspension 525 mg PO Q8H PRN (Reason: Nausea/vomiting/diarrhea) Rx Instructions: do not exceed 8 doses in a 24 hour period meclizine 12.5 mg tablet 12.5 mg PO Q6H PRN (Reason: nausea and vomiting ) potassium chloride 20 mEq tablet extended release 20 meq PO BID@0700,1900 mirtazapine 15 mg tablet 15 mg PO QAM metoprolol tartrate 100 mg tablet 100 mg PO BID Qty: 180 3RF folic acid 1 mg tablet 1 mg PO DAILY furosemide 40 mg tablet 60 mg PO DAILY@0700 Qty: 135 0RF galantamine 8 mg capsule,ext rel. pellets 24 hr 8 mg PO QAM 90 Days Qty: 90 3RF memantine 5 mg tablet 5 mg PO BID Qty: 180 3RF tramadol 50 mg Tablet 50 mg PO Q6H PRN (Reason: Pain) levothyroxine [Euthyrox] 75 mcg tablet 75 mcg PO DAILY@0700 pantoprazole 40 mg tablet,delayed release (DR/EC) 40 mg PO QAM cetirizine [Zyrtec] 10 mg Tablet 10 mg PO PRN PRN (Reason: Allergy Symptoms) warfarin 2.5 mg tablet See Rx Instructions .ROUTE .COMPLEX Rx Instructions: Take 1 tablet by mouth on Sunday , Sunday , , Sunday , and Sunday hydroxyzine HCl 25 mg tablet 25 mg PO TID PRN (Reason: Anxiety) polyethylene glycol 3350 [Miralax] 17 gram/dose Powder 17 g PO QAM ipratropium bromide 42 mcg (0.06 %) spray,non-aerosol 2 spray INTRANASAL TID PRN (Reason: ALLERGIES) magnesium hydroxide [Milk of Magnesia] 400 mg/5 mL Suspension 30 ml PO PRN PRN (Reason: bowel movemaent ) amiodarone 200 mg tablet 200 mg PO PRN PRN (Reason: if blood pressure is over 120) cyanocobalamin (vitamin B-12) 1,000 mcg Tablet, Sublingual 2,000 mcg SUBLINGUAL DAILY osjaa-kucvovaw-cfb-turp-pet Ointment 1 ea TOPICAL PRN PRN (Reason: thick toe nails) acetaminophen 500 mg Tablet 1,000 mg PO Q8H Icy Hot 30-10 % Cream 1 applic TOPICAL TID PRN (Reason: sore muscles) spironolactone 25 mg tablet 25 mg PO QAM atorvastatin 40 mg Tablet 40 mg PO BEDTIME Qty: 30 0RF aspirin [Aspir-81] 81 mg Tablet,Delayed Release (Dr/Ec) 81 mg PO DAILY ondansetron 4 mg tablet,disintegrating 4 mg PO Q6H PRN (Reason: Nausea And Vomiting) warfarin 3 mg tablet See Rx Instructions .ROUTE .COMPLEX Rx Instructions: Take 1 tablet by mouth on Sunday and Sunday Discharge Orders: Discharge ED (Routine); Ordered 08/02/25 Ordered By: Charlie Lyons Referrals: Danny Marmolejo MD [Primary Care Provider, Family Practice] - 1-3 days Patient Instructions: Chest Pain (ED), Opioid Safety, Pain Management, Patient Portal & Radha Instructions Activity Restrictions/Additional Instructions: Return for worsening pain, worsening shortness of breath, fever, other concerning symptoms. Call your doctor on Sunday for a follow-up appointment. Print Language: Kinyarwanda Coding Level of Care Code ED Ice Cream Man for Chg Fwd Heart Score HEART Score Components History: Slightly Suspicous EKG: Non-specific Changes Age: 65 or more yrs Risk Factors: 1 or 2 Risk Factors Troponin: Baseline Trop <16 ng/L HEART Score RESULT HEART Score: 4
[2025-08-02 01:20] LABS: Troponin 5 2HR 11.88 ng/L (0-10)
[2025-08-02 01:23] LABS: Troponin 5 2HR Delta -1.12 ABS# (0-10)
[2025-08-02 01:42] VITALS: BP 101/59; PULSE 86; RESP 14; O2SAT 95
[2025-08-02 02:19] LABS: INR 1.71 (0.8-1.2); Prothrombin Time 21.10 SECONDS (12.1-14.9)
[2025-08-02 03:52] VITALS: BP 125/76; PULSE 90; RESP 16; O2SAT 92
[2025-08-02 04:26] VITALS: BP 120/73; PULSE 81; RESP 16; O2SAT 94
== END 2025-08-02 04:28 | disposition home or self-care (01) ==
PROVIDERS: Emergency Provider Emergency Medicine; PCP Family Medicine
DX: R07.89 Other chest pain (principal); Z11.52 Encounter for screening for COVID-19; Z79.01 Long term (current) use of anticoagulants; Z79.82 Long term (current) use of aspirin; I25.10 Atherosclerotic heart disease of native coronary artery without angina pectoris; E78.5 Hyperlipidemia, unspecified; I13.0 Hypertensive heart and chronic kidney disease with heart failure and stage 1 through stage 4 chronic kidney disease, or unspecified chronic kidney disease; N18.2 Chronic kidney disease, stage 2 (mild); I50.9 Heart failure, unspecified
CPT/HCPCS: 36415; 71045; 80053; 84484; 85025; 85610; 87637; 93005; 96374; 96375; 99285; J2405; J3010; J7040

== ENCOUNTER → 2025-08-06 09:37 | Outpatient (BNVA) | payer MEDICARE, MEDICAID, SELFPAY | PROVIDERS: PCP Family Medicine; Visit Provider Podiatrist Foot & Ankle Surgery | DX: E11.69 Type 2 diabetes mellitus with other specified complication (principal); B35.1 Tinea unguium; L60.8 Other nail disorders; L85.3 Xerosis cutis; N18.2 Chronic kidney disease, stage 2 (mild); R60.0 Localized edema | CPT/HCPCS: 11721; 99213 ==

== ENCOUNTER 2025-08-14 06:24 | Emergency (ER) | payer MEDICARE, MEDICAID, SELFPAY ==
--- OUTSIDE RECORDS SUMMARY | 2025-08-14 06:28 | XMS_ITS | Encounter Summary ---
Author Organization [facility] Address [address] [place] [address] Care Team Providers Care Staffing Clerk Name Role Phone Rico Muñiz MD, Sharan Jaime Primary Care Provider Encounter Details Date Type Department Care Team (Latest Contact Info) Description 08/03/2000 Outpatient Historical [facility] Sharan Gómez Jr., MD [address] [place] [address] Pure hypercholesterolem (Primary Dx); Other and unspecified hyperlipidemia; Dietary surveil/counsellors Social History Tobacco Use Types Packs/Day Years Used Date Smoking Tobacco: Never Assessed Comments Unknown Sex and Gender Information Value Date Recorded Sex Assigned at Not on file Legal Sex Female 5:42 AM CARDIAC 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
--- OUTSIDE RECORDS SUMMARY | 2025-08-14 06:28 | XMS_ITS | Encounter Summary ---
Author Organization [facility] Address [address] [place] [address] Care Team Providers Care Canvas Shop Laborer Name Role Phone Rico Muñiz MD, Sharan Jaime Primary Care Provider Encounter Details Date Type Department Care Team (Latest Contact Info) Description 12/31/2000 Outpatient Historical [facility] [place] [address] [facility] [place] [address] [place] [phone] Larry Olvera MD Screening for malignant neoplasm of the rectum (Primary Dx) Social History Tobacco Use Types Packs/Day Years Used Date Smoking Tobacco: Never Assessed Comments Unknown Sex and Gender Information Value Date Recorded Sex Assigned at Not on file Legal Sex Female 5:42 AM LEAN 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
--- OUTSIDE RECORDS SUMMARY | 2025-08-14 06:28 | XMS_ITS | Encounter Summary ---
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 RATE SUPERVISOR EXAMINATION (Primary Dx) Social History Tobacco Use Types Packs/Day Years Used Date Smoking Tobacco: Never Assessed Comments Unknown Sex and Gender Information Value Date Recorded Sex Assigned at Not on file Legal Sex Female 5:42 AM HVAC SPECIALIST Gender Identity Not on file Sexual Orientation Not on file documented as of this encounter Plan of Treatment Not on file documented as of this encounter Visit Diagnoses Diagnosis Routine gynecological examination- Primary documented in this encounter Care Teams Immunology Specialist Relationship Specialty Start Date End Date Sharan Gómez Jr., MD [address] [place] [address] PCP - General 08/10/05 documented as of this encounter
--- OUTSIDE RECORDS SUMMARY | 2025-08-14 06:28 | XMS_ITS | Encounter Summary ---
Author Organization [facility] Address [address] [place] [address] Care Team Providers Care Shooter'S Helper Name Role Phone Rico Muñiz MD, Sharan Jaime Primary Care Provider Encounter Details Date Type Department Care Team (Late st Contact Info) Description 07/30/2000 Outpatient Historical [facility] Social History Tobacco Use Types Packs/Day Years Used Date Smoking Tobacco: Never Assessed Comments Unknown Sex and Gender Information Value Date Recorded Sex Assigned at Not on file Legal Sex Female 5:42 AM PIECER UP Gender Identity Not on file Sexual Orientation Not on file documented as of this encounter Plan of Treatment Not on file documented as of this encounter Visit Diagnoses Not on filedocumented in this encounter Care Teams Shooter'S Helper Relationship Specialty Start Date End Date Sharan Gómez Jr., MD [address] [place] [address] PCP - General 08/10/05 documented as of this encounter
--- OUTSIDE RECORDS SUMMARY | 2025-08-14 06:28 | XMS_ITS | Encounter Summary ---
Author Organization [facility] Address [address] [place] [address] Care Team Providers Care Senior Support Engineer Name Role Phone Rico Muñiz MD, Sharan Jaime Primary Care Provider Encounter Details Date Type Department Care Team (Latest Contact Info) Description 07/04/2005 Outpatient Historical [facility] [address] [place] [address] Serge Arrington MD [address] [place] [address] HYPERTENSION NOS (Primary Dx) Social History Tobacco Use Types Packs/Day Years Used Date Smoking Tobacco: Never Assessed Comments Unknown Sex and Gender Information Value Date Recorded Sex Assigned at Not on file Legal Sex Female 5:42 AM SALES OFFICER Gender Identity Not on file Sexual Orientation Not on file documented as of this encounter Plan of Treatment Not on file documented as of this encounter Visit Diagnoses Diagnosis Unspecified essential hypertension- Primary documented in this encounter Care Teams Senior Support Engineer Relationship Specialty Start Date End Date Sharan Gómez Jr., MD [address] [place] [address] PCP - General 08/10/05 documented as of this encounter
--- OUTSIDE RECORDS SUMMARY | 2025-08-14 06:28 | XMS_ITS | Encounter Summary ---
Author Organization [facility] Address [address] [place] [address] Care Team Providers Care Stacker Name Role Phone Rico Muñiz MD, Sharan Jaime Primary Care Provider Encounter Details Date Type Department Care Team (Latest Contact Info) Description 10/31/2001 Outpatient Historical [facility] Sharan Gómez Jr., MD [address] [place] [address] ATRIAL FIBRILLATION (CMS/HCC) (Primary Dx); AFTERCARE ALF ANTICOAG USE; HEART VALVE REPLAC NEC Social History Tobacco Use Types Packs/Day Years Used Date Smoking Tobacco: Never Assessed Comments Unknown Sex and Gender Information Value Date Recorded Sex Assigned at Not on file Legal Sex Female 5:42 AM SENIOR MECHANICAL DEVELOPMENT ENGINEER Gender Identity Not on file Sexual Orientation Not on file documented as of this encounter Plan of Treatment Not on file documented as of this encounter Visit Diagnoses Diagnosis Atrial fibrillation (CMS/HCC)- Primary Atrial fibrillation termite control service representative (current) use of anticoagulants Long-term (current) use of anticoagulants Heart valve replaced by other means documented in this encounter Care Teams Stacker Relationship Specialty Start Date End Date Sharan Gómez Jr., MD [address] [place] [address] PCP - General 08/10/05 documented as of this encounter
--- OUTSIDE RECORDS SUMMARY | 2025-08-14 06:28 | XMS_ITS | Encounter Summary ---
Author Organization [facility] Address [address] [place] [address] Care Team Providers Care Pastry Cook Helper Name Role Phone Rico Muñiz MD, Sharan Jaime Primary Care Provider Encounter Details Date Type Department Care Team (Latest Contact Info) Description 11/14/2001 Outpatient Historical [facility] Sharan Gómez Jr., MD [address] [place] [address] OSTEOARTHROS NOS-UNSPEC (Primary Dx); HEART VALVE REPLAC NEC Social History Tobacco Use Types Packs/Day Years Used Date Smoking Tobacco: Never Assessed Comments Unknown Sex and Gender Information Value Date Recorded Sex Assigned at Not on file Legal Sex Female 5:42 AM TOWN CLERK Gender Identity Not on file Sexual Orientation Not on file documented as of this encounter Plan of Treatment Not on file documented as of this encounter Visit Diagnoses Diagnosis Osteoarthrosis, unspecified whether generalized or localized, unspecified site- Primary Heart valve replaced by other means documented in this encounter Care Teams Pastry Cook Helper Relationship Specialty Start Date End Date Sharan Gómez Jr., MD [address] [place] [address] PCP - General 08/10/05 documented as of this encounter
--- OUTSIDE RECORDS SUMMARY | 2025-08-14 06:28 | XMS_ITS | Encounter Summary ---
Author Organization [facility] Address [address] [place] [address] Care Team Providers Care Counter Server Name Role Phone Rico Muñiz MD, Sharan Jaime Primary Care Provider Encounter Details Date Type Department Care Team (Latest Contact Info) Description 02/04/2007 Outpatient Historical [facility] [place] [place] [phone] Serge Arrington MD [address] [place] [address] Unspecified Essential Hypertension (Primary Dx); Mitral Valve Disorder; Other and Unspecified Hyperlipidemia Social History Tobacco Use Types Packs/Day Years Used Date Smoking Tobacco: Never Assessed Comments Unknown Sex and Gender Information Value Date Recorded Sex Assigned at Not on file Legal Sex Female 5:42 AM PLAY READER Gender Identity Not on file Sexual Orientation Not on file documented as of this encounter Plan of Treatment Not on file documented as of this encounter Visit Diagnoses Diagnosis Unspecified essential hypertension- Primary Mitral valve disorder Mitral valve disorders Other and unspecified hyperlipidemia documented in this encounter Care Teams Counter Server Relationship Specialty Start Date End Date Sharan Gómez Jr., MD [address] [place] [address] PCP - General 08/10/05 documented as of this encounter
--- OUTSIDE RECORDS SUMMARY | 2025-08-14 06:28 | XMS_ITS | Encounter Summary ---
Author Organization [facility] Address [address] [place] [address] Care Team Providers Care Rod Pointer Name Role Phone Rioc Muñiz MD, Sharan Jaime Primary Care Provider Encounter Details Date Type Department Care Team (Latest Contact Info) Description 02/03/2002 Outpatient Historical [facility] Sharan Gómez Jr., MD [address] [place] [address] HEART VALVE REPLAC NEC (Primary Dx); AFTERCARE MAPPER ANTICOAG USE Social History Tobacco Use Types Packs/Day Years Used Date Smoking Tobacco: Never Assessed Comments Unknown Sex and Gender Information Value Date Recorded Sex Assigned at Not on file Legal Sex Female 5:42 AM SCIENTIFIC RESEARCH ASSOCIATE Gender Identity Not on file Sexual Orientation Not on file documented as of this encounter Plan of Treatment Not on file documented as of this encounter Visit Diagnoses Diagnosis Heart valve replaced by other means- Primary terminal clerk (current) use of anticoagulants Long-term (current) use of anticoagulants documented in this encounter Care Teams Rod Pointer Relationship Specialty Start Date End Date Sharan Gómez Jr., MD [address] [place] [address] PCP - General 08/10/05 documented as of this encounter
--- OUTSIDE RECORDS SUMMARY | 2025-08-14 06:28 | XMS_ITS | Encounter Summary ---
Author Organization [facility] Address [address] Attn: [place] [address] Care Team Providers Care Director Of Recreation Therapy Name Role Phone Rico Muñiz MD, Sharan Jaime Primary Care Provider Encounter Details Date Type Department Care Team (Late st Contact Info) Description 04/07/2002 Outpatient Historical Sharan Gómez Jr., MD [address] [place] [address] Social History Tobacco Use Types Packs/Day Years Used Date Smoking Tobacco: Never Assessed Comments Unknown Sex and Gender Information Value Date Recorded Sex Assigned at Not on file Legal Sex Female 5:42 AM PROTEIN CHEMIST Gender Identity Not on file Sexual Orientation Not on file documented as of this encounter Plan of Treatment Not on file documented as of this encounter Visit Diagnoses Not on filedocumented in this encounter Care Teams Director Of Recreation Therapy Relationship Specialty Start Date End Date Sharan Gómez Jr., MD [address] [place] [address] PCP - General 08/10/05 documented as of this encounter
--- OUTSIDE RECORDS SUMMARY | 2025-08-14 06:28 | XMS_ITS | Encounter Summary ---
Author Organization [facility] Address [address] [place] [address] Care Team Providers Care Redevelopment Manager Name Role Phone Rico Muñiz MD, Sharan Jaime Primary Care Provider Encounter Details Date Type Department Care Team (Latest Contact Info) Description 06/24/2001 Outpatient Historical [facility]al Lopez Michelle [address] [place] [address] Serge Arrington MD [address] [place] [address] Unspecified congenital anomaly of heart (Primary Dx) Social History Tobacco Use Types Packs/Day Years Used Date Smoking Tobacco: Never Assessed Comments Unknown Sex and Gender Information Value Date Recorded Sex Assigned at Not on file Legal Sex Female 5:42 AM MORTAR MIXER 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
--- OUTSIDE RECORDS SUMMARY | 2025-08-14 06:28 | XMS_ITS | Encounter Summary ---
Author Organization [facility] Address [address] Attn: [place] [id number] Care Team Providers Care Prototype Technician Name Role Phone Rico Muñiz MD, Sharan Jaime Primary Care Provider Encounter Details Date Type Department Care Team (Late st Contact Info) Description 06/22/2000 Outpatient Historical Serge Arrington MD [address] [facility] [address] [place] [address] Social History Tobacco Use Types Packs/Day Years Used Date Smoking Tobacco: Never Assessed Comments Unknown Sex and Gender Information Value Date Recorded Sex Assigned at Not on file Legal Sex Female 5:42 AM CUSTOMER ENGINEERING SPECIALIST Gender Identity Not on file Sexual Orientation Not on file documented as of this encounter Plan of Treatment Not on file documented as of this encounter Visit Diagnoses Not on filedocumented in this encounter Care Teams Prototype Technician Relationship Specialty Start Date End Date Sharan Gómez Jr., MD [address] [place] [address] PCP - General 08/10/05 documented as of this encounter
--- OUTSIDE RECORDS SUMMARY | 2025-08-14 06:28 | XMS_ITS | Encounter Summary ---
Author Organization [facility] Address [address] [place] [address] Care Team Providers Care Light Air Defense Artillery Crewmember Name Role Phone Rico Muñiz MD, Sharan Jaime Primary Care Provider Encounter Details Date Type Department Care Team (Latest Contact Info) Description 10/27/1998 Outpatient Historical [facility] Sharan Gómez Jr., MD [address] [place] [address] Unspecified essential hypertension (Primary Dx); Chest pain, unspecified; Pneumonia, organism unspecified(486) Social History Tobacco Use Types Packs/Day Years Used Date Smoking Tobacco: Never Assessed Comments Unknown Sex and Gender Information Value Date Recorded Sex Assigned at Not on file Legal Sex Female 5:42 AM LEGAL DOCUMENT SPECIALIST Gender Identity Not on file Sexual Orientation Not on file documented as of this encounter Plan of Treatment Not on file documented as of this encounter Visit Diagnoses Diagnosis Unspecified essential hypertension- Primary Chest pain, unspecified Pneumonia, organism unspecified(486) Pneumonia, organism unspecified documented in this encounter Care Teams Light Air Defense Artillery Crewmember Relationship Specialty Start Date End Date Sharan Gómez Jr., MD [address] [place] [address] PCP - General 08/10/05 documented as of this encounter
--- OUTSIDE RECORDS SUMMARY | 2025-08-14 06:28 | XMS_ITS | Encounter Summary ---
Author Organization [facility] Address [address] [place] [address] Care Team Providers Care Dinkey Brakeman Name Role Phone Rico Muñiz MD, Sharan Jaime Primary Care Provider Encounter Details Date Type Department Care Team (Latest Contact Info) Description 06/26/2003 Outpatient Historical [facility] [address] [place] [id number] Serge Arrington MD [address] [place] [address] Mitral valve disorder (Primary Dx); [...] (pneumococcus) documented in this encounter Care Teams Dinkey Brakeman Relationship Specialty Start Date End Date Sharan Gómez Jr., MD [address] [place] [address] PCP - General 08/10/05 documented as of this encounter
--- OUTSIDE RECORDS SUMMARY | 2025-08-14 06:28 | XMS_ITS | Encounter Summary ---
Author Organization [facility] Address [address] [place] [address] Care Team Providers Care Leaf Sucker Operator Name Role Phone Rico Muñiz MD, Sharan Jaime Primary Care Provider Encounter Details Date Type Department Care Team (Latest Contact Info) Description 11/28/2001 Outpatient Historical [facility] Sharan Gómez Jr., MD [address] [place] [address] URIN TRACT INFECTION NOS (Primary Dx); AFTERCARE CORRECTION ANTICOAG USE Social History Tobacco Use Types Packs/Day Years Used Date Smoking Tobacco: Never Assessed Comments Unknown Sex and Gender Information Value Date Recorded Sex Assigned at Not on file Legal Sex Female 5:42 AM MULTIMEDIA SERVICES COORDINATOR Gender Identity Not on file Sexual Orientation Not on file documented as of this encounter Plan of Treatment Not on file documented as of this encounter Visit Diagnoses Diagnosis Urinary tract infection, site not specified- Primary 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
--- OUTSIDE RECORDS SUMMARY | 2025-08-14 06:28 | XMS_ITS | Data Portability ---
Author Organization [facility], [facility], [facility] Address [address] [facility] [address] [place] [address] Care Team Providers Care Custom Protection Officer Name Role Phone MARMOLEJOLYN Rivas Primary Care Provider Assessment No assessment recorded. Plan of Treatment Reminders Order Date Submit Date Provider Last Modified By Organization Details Last Modified Time Details Appointments None recorded. Lab PT/INR 2024 025 [facility]), [address] [place] [address], [phone], 11:56:37 PT/INR 2024 025 [facility]), [address] [place] [address], [phone], 5 11:49:49 PT/INR 2024 025 [facility]), [address] [place] [address], [address], 11:41:21 PT/INR 2024 025 [facility]), [address] [place] [address], [phone], 12:57:11 Referral None recorded. Procedures None recorded. Surgeries None recorded. Imaging XR, cervical spine, 2 or 3 view - flexion/ex tension views [address] ([facility]), [address] [place], [address], 15:14:44 XR, shoulder, 2 or more view [address] ([facility]), [address] [place], [address], 15:14:44 Medication Orders Medrol (Chema) 4 mg tablets in a dose pack 2024 [facility], [address] [place] [address], [address], 14:27:25 Patient TargetsNo targets recorded. Patient InstructionsNo instructions recorded. Reason for Referral None Reported. Results Created Date Observation Date Name Description Value Unit Range Abnormal Flag Note LastModifiedBy Organization Detail LastModifiedTime 06/24/2006/24/2025 PT/IN R Protime 40.9 Not Available [facility]) [address] [place] [address], [phone], 06/24/2025 13:13:54 06/24/20 25 06/24/2025 PT/IN R INR 3.4 Not Available [facility]) [address] [place], [address], 06/24/2025 13:13:54 07/02/20 25 07/02/2025 PT/IN R Protime 42.3 Not Available [facility] ([facility]) [address] [place], [address], 07/01/2025 10:25:07 07/02/20 25 07/02/2025 PT/IN R INR 3.5 Not Available [facility] ([facility]) [address] [place], [address], 07/01/2025 10:25:07 07/06/20 25 07/06/2025 PT/IN R Protime 39.5 Not Available [facility] ([facility]) [address] [place], [address], 07/06/2025 11:23:26 07/06/20 25 07/06/2025 PT/IN R INR 3.3 Not Available [facility] ([facility]) [address] [place], [address], 07/06/2025 11:23:26 07/09/20 25 07/09/2025 PT/IN R Protime 34.6 Not Available [facility] ([facility]) [address] [place], [address], 07/09/2025 13:44:17 07/09/20 25 07/09/2025 PT/IN R INR 2.9 Not Available [facility]) [address] [place], [address], 07/09/2025 13:44:17 07/14/20 25 07/14/2025 URINA LYSIS WITH MICRO color YELLOW Not Available [facility] [address] [facility] [address], [place], [address], 07/14/2025 14:52:32 07/14/20 25 07/14/2025 URINA LYSIS WITH MICRO clarity CLEAR Not Available [facility] [address] [facility] [address], [place], [address], 07/14/2025 14:52:32 07/14/20 25 07/14/2025 URINA LYSIS WITH MICRO glu NEGATI VE Not Available [facility] [address] [facility] [address], [place], [address], 07/14/2025 14:52:32 07/14/20 25 07/14/2025 URINA LYSIS WITH MICRO bili NEGATI VE Not Available [facility] [address], [place], [address], 07/14/2025 14:52:32 07/14/20 25 07/14/2025 URINA LYSIS WITH MICRO ket NEGATI VE Not Available [facility] [address], [place], [address], 07/14/2025 14:52:32 07/14/20 25 07/14/2025 URINA LYSIS WITH MICRO S.g 1.010 1.005- 1.025 Not Available [facility] [address], [place], [address], 07/14/2025 14:52:32 07/14/20 25 07/14/2025 URINA LYSIS WITH MICRO pH 5.0 5.0-7. 0 Not Available [facility] [address], [place], [address], 07/14/2025 14:52:32 07/14/20 25 07/14/2025 URINA LYSIS WITH MICRO pro NEGATI VE Not Available [facility] [address], [place], [address], 07/14/2025 14:52:32 07/14/2007/14/2025 URINA LYSIS WITH MICRO uro 0.2 E.U./D L Not Available [facility] [address], [place], [address], 07/14/2025 14:52:32 07/14/20 25 07/14/2025 URINA LYSIS WITH MICRO nit NEGATI VE Not Available [facility] [address], [place], [address], 07/14/2025 14:52:32 07/14/20 25 07/14/2025 URINA LYSIS WITH MICRO blo NEGATI VE Not Available [facility] [address], [place], [address], 07/14/2025 14:52:32 07/14/20 25 07/14/2025 URINA LYSIS WITH MICRO jose elias NEGATI VE Not Available [facility] [address], [place], [address], 07/14/2025 14:52:32 07/14/20 25 07/14/2025 URINA LYSIS WITH MICRO WBC 0-1 abnormal Not Available [facility] [address], [place], [address], 07/14/2025 14:52:32 07/14/20 25 07/14/2025 URINA LYSIS WITH MICRO RBC NEGATI VE Not Available [facility] [address], [place], [address], 07/14/2025 14:52:32 07/14/20 25 07/14/2025 URINA LYSIS WITH MICRO epi cells 1-2 abnormal Not Available [facility] [address], [place], [address], 07/14/2025 14:52:32 07/14/20 25 07/14/2025 URINA LYSIS WITH MICRO bacteria 1-2 HYALIN E CAST abnormal Not Available [facility] [address], [place], [address], 07/14/2025 14:52:32 07/14/20 25 07/14/2025 URINA LYSIS WITH MICRO other NEG Not Available [facility] [address], [place], [address], 07/14/2025 14:52:32 07/14/20 25 07/16/2025 CULTU RE, URINE , ROUTI NE culture, urine, routine SEE NOTE CULTU RE, URINE , ROUTI NE Micro Numbe r: [id number] Test Statu s: Final Speci men Sourc e: Urine Speci men Quali ty: Adequ ate Resul t: No Growt h Not Available [facility] [address] [place], [address], 07/16/2025 02:51:13 07/17/2007/17/2025 PT/IN R Protime 34.4 Not Available [facility] ([facility]) [address] [place] [address], [address], 07/16/2025 12:07:15 07/17/20 25 07/17/2025 PT/IN R INR 2.9 Not Available [facility] ([facility]) [address] [place] [address], [address], 07/16/2025 12:07:15 07/23/20 25 07/23/2025 PT/IN R Protime 47.0 Not Available [facility] ([facility]) [address] [place] [address], [address], 07/23/2025 11:36:06 07/23/20 25 07/23/2025 PT/IN R INR 3.9 Not Available [facility] ([facility]) [address] [place] [address], [address], 07/23/2025 11:36:06 07/30/20 25 07/30/2025 PT/IN R Protime 30.2 Not Available [facility] ([facility]) [address] [place] [address], [address], 07/30/2025 11:33:15 07/30/20 25 07/30/2025 PT/IN R INR 2.5 Not Available [facility] ([facility]) [address] [place], [address], 07/30/2025 11:33:15 08/07/2008/07/2025 PT/IN R Protime 26.3 Not Available [facility] ([facility]) [address] [place], [address], 08/07/2025 11:40:14 08/07/2008/07/2025 PT/IN R INR 2.2 Not Available [facility] ([facility]) [address] [place], [address], 08/07/2025 11:40:14 08/05/2008/04/2025 XR, cervi luisito spine , 2 or 3 view No observ ation record ed. [facility] [address] [place], [address], 08/07/2025 13:25:55 08/05/2008/04/2025 XR, shoul vito, 2 or more view No observ ation record ed. [facility] [address] [place], [address], 08/07/2025 13:25:55 Result Notes None recorded. Problems Name Problem SNOMED Code Status Onset Date Resolution Date Notes Provider Name and Address Organization Details Recorded Time Depressi ve disorder 74442010 Completed 202010/14/2021 Depressi on - Status is Inactive ; 10/14/20 11:08AM by Maryellen Marmolejo PA-C, Annotati on/Adden dum; Promoted ; acuity set as *; FELISHA hamilton PA [facility], [facility]CJosue 07:56:57 Herpes zoster 5786918 Completed 202201/02/2025 SHINGLES FELISHA hamilton [facility]CJosue 07:56:03 Dysthymi a 76287914 Active 2022 DEPRESSI ON WITH ANXIETY FELISHA hamilton, [facility] 5 07:55:28 Benign essentia l hyperten jovanni 9559378 Active 2022 FELISHA hamilton, [facility] 5 07:55:28 Gastroes ophageal reflux disease 908176666 Active 2022 FELISHA hamilton, [facility] 5 07:55:28 Fracture of upper end of humerus 574766436 Completed 202201/02/2025 CLOSED FRACTURE OF PROXIMAL END OF RIGHT HUMERUS, SEQUELA FELISHA hamilton, [facility] 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 5 07:56:22 Atrial fibrilla tion 55832732 Active 2022 FELISHA hamilton, [facility] 3 14:45:05 Coronary atherosc lerosis 810026694 Active 2022 bare metal stents to circ and LAD 2011 FELISHA hamilton, [facility] 3 14:46:30 Iron deficien cy anemia 28595622 Active 2022 FELISHA hamilton, [facility] 5 07:55:28 Hypothyr oidism 01505563 Active 2022 FELISHA hamilton, [facility] 3 14:45:59 Anxiety 79294720 Active 2022 FELISHA hamilton, [facility] 3 14:46:54 Viral hepatiti s C 95300790 Active 2022 FELISHA DESIR null, [facility] 5 07:55:28 Moderate recurren t major depressi on 77273171 Active 2023 FELISHA DESIR null, [facility] 5 07:55:28 Need for personal care assistan ce 60588984189 418565 Active 2023 FELISHA DESIR null, [facility] 5 07:55:28 Frail elderly 274436551 Active 2023 FELISHA DESIR null, [facility] 5 07:55:28 Seasonal allergic rhinitis 023418471 Active 2023 FELISHA hamilton, [facility] 5 07:55:28 Chronic pain 47960486 Active 2023 FELISHA DESIR null, [facility] 5 07:55:28 Dementia 26203312 Active 2023 FELISHA DESIR null, [facility] 5 07:55:28 Constipa tion 36030562 Active 2023 FELISHA DESIR null, [facility] 5 07:55:44 Hyperlip idemia 68785570 Active 2024 FELISHA DESIR null, [facility] 5 07:59:38 Occult blood detected in feces 62698792 Active 2024 FELISHA DESIR null, [facility] 5 09:13:35 Mean corpuscu lar volume above referenc e range 240210063 Active 2024 FELISHA hamilton [facility] 5 09:14:07 Hypercal cemia 45215393 Active 2024 [facility] 5 10:07:49 Vitamin D deficien cy 21813446 Active 2024 Lyn Marmolejo MD [address] [place] [address], [address], [facility] 5 12:54:55 Hyperpar athyroid ism 33495435 Active 2024 Lyn Marmolejo MD [address] [place] [address], [address], [facility] 5 12:54:56 Dysuria 87833684 Active 2024 [facility] 14:08:08 Problem Notes None recorded. Procedures Surgical History Date Name Laterality Status Provider Name and Address Organization Details Recorded Time 2024 esophagogastroduodenoscopy completed YANELIS DESIR [facility] 5 12:23:16 2024 colonoscopy completed FELISHA DESIR [facility] 5 10:20:11 2023 esophagogastroduodenoscopy completed KIARA DUCKWORTH [facility] 4 12:40:14 2023 colonoscopy completed Lyn Marmolejo MD [address] [place] [address], [address], [facility] 5 10:19:30 cholecystectomy completed FELISHA DESIR [facility] 3 14:48:40 replacement of mitral valve complete d FELISHA DESIR [facility] 3 14:49:22 section completed FELISHA DESIR [facility] 3 15:14:43 Imaging Results None recorded. Procedure Notes None recorded. Medical Equipment None Reported. Allergies Allergen ID Allergen Name Allergen Category Reaction Reaction Severity Criticality Documentation Date Start Date Code Code System Note Provider Name and Address Organization Details Recorded Time 1376 morphine medicatio n Not available Not available Not available 02/07/2023 7052 RxNorm Dotty Celis [facility] 3 10:45:47 1377 diltiazem Not available Not available Not available Not available 02/07/2023 3443 RxNorm Dotty Vimal [facility] 3 10:45:54 4552 Bactrim medicatio n other severe high 04/17/2023 21122 9 RxNorm do not give d/t couma din Lola Vidal [facility] 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 12:26:48 Medications Name Sig Start Date Stop [...] Not Available Not Available No t Available Medrol (Chema) 4 mg tablets in a dose pack day 1 take 6 tablets po X 1day 2 take 5 tablets po X 1day 3 take 4 tablets po X 1day 4 take 3 tablets po X 1day 5 take 2 tablets po X 1day 6 take 1 tablet po X 1 2024 active Not Available Not Available Not Avai lable Milk of Magnesia 400 mg/5 mL oral [...] Available Not Available warfarin 2.5 mg tablet Take 1 tablet every day by oral route. 2024 active Not Available Not Available Not [...] 2 mg tablet 1 tablet Sunday and 08/10 completed MWF Not Available Not Available Not Available losartan 25 mg tablet 1 tablet daily [...] as needed 06/08 completed 0; Recorded 12/30/19 23 7:56AM [...] 11/13/19 3:03PM by Dotty Larry RN (Authori zed through Lyn Marmolejo MD), Refill [...] [facility]SC Levothyro xine Sodium daily 06/08 completed 68446; Recorded 01/09/20 6:06PM by Shirley Quevedo (Authori [...] Details Last Updated DateTime 5 154.94 cm 29.7 kg/m2 75568 g 97.6 [degF] 79 /min 94 % 94 % 126/84 mm[Hg] Dotty Celis [facility] 5 10:23:59 Social History Question Answer Notes LastModified by [employer] Details LastModified Time Tobacco Smoking Status Former Smoker FELISHA hamilton, [facility] 04/17/2023 14:48:01 What Was The Date Of Your Most Recent Tobacco Screening? 05/27/2025 [email or web address] Information not available 05/27/2025 Sex: Unknown Functional Status Question Answer Note LastModified by [employer] Details LastModified Time Do you use any illicit or recreational drugs? No [email or web address] Information not available 04/17/2023 Do you or have you ever used any other forms of tobacco or nicotine? No [email or web address] Information not available 06/29/2023 What is your level of alcohol consumption? None [email or web address] Information not available 04/17/2023 Mental Status None recorded. Family History Relationship Description Onset Age of this Age Resolved Age Notes LastModified by Organization Details LastModified Time Unspecified Relation Coronary atherosclero sis [email or web address] Not available 06/29 15:13:48 Medical History No medical history recorded. Gynecological HistoryNo gynecological history recorded. Obstetrics History GPAL:G 0 P 0 0 0 0 Immunizations Vaccine Type Date Status Note Provider Nam e and Address Organization Details Recorded Time Influenza, MDCK, quadrivalent, PF 2 completed FELISHA hamilton [facility] 10/10/2024 08:38:58 COVID-19, mRNA, LNP-S, PF, 100 mcg/0.5mL dose or 50 mcg/0.25mL dose 1 completed FELISHA DESIR null, [facility] 10/10/2024 08:38:58 COVID-19, mRNA, LNP-S, PF, 100 mcg/0.5mL dose or 50 mcg/0.25mL dose 1 completed FELISHA DESIR null, [facility] 10/10/2024 08:38:58 COVID-19, mRNA, LNP-S, PF, 100 mcg/0.5mL dose or 50 mcg/0.25mL dose 2 completed FELISHA hamilton, [facility] 10/10/2024 08:38:58 Pneumococcal conjugate PCV20, polysaccharide [id number] conjugate, adjuvant, PF 3 completed FELISHA hamilton, [facility] 10/10/2024 08:38:58 COVID-19, mRNA, LNP-S, bivalent, PF, 50 mcg/0.5 mL or 25mcg/0.25 mL dose 3 completed FELISHA hamilton, [facility] 10/10/2024 08:38:58 pneumococcal polysaccharide PPV23 3 completed FELISHA DESIR null, [facility] 04/17/2023 12:02:00 Tdap 1 completed FELISHA hamilton, [facility] 10/10/2024 08:38:58 Influenza, split virus, trivalent, PF 3 completed FELISHA hamilton, [facility] 04/17/2023 12:02:00 influenza, split (incl. purified surface antigen) 0 completed FELISHA hamilton, [facility] 04/17/2023 12:02:00 Hep A, adult 1 completed FELISHA DESIR null, [facility] 10/10/2024 08:38:58 Hep A, adult 9 completed FELISHA DESIR null, [facility] 10/10/2024 08:38:58 Influenza, split virus, quadrivalent, PF 1 completed FELISHA DESIR null, [facility] 10/10/2024 08:38:58 Influenza, split virus, quadrivalent, PF 9 [facility] 10/10/2024 08:38:58 Influenza, MDCK, trivalent, PF 4 completed FELISHA DESIR null, [facility] 10/10/2024 08:38:58 Influenza, MDCK, quadrivalent, preservative 3 completed FELISHA hamilton, [facility] 10/10/2024 08:38:58 pneumococcal polysaccharide PPV23 8 completed Lola hamilton, [facility] 07/02/2024 08:41:52 Influenza, split virus, quadrivalent, PF 8 completed Lola Vidal null, [facility] 07/02/2024 08:41:52 zoster recombinant 3 completed Lola hamilton, [facility] 07/02/2024 14:52:40 COVID-19, mRNA, LNP-S, PF, 50 mcg/0.5 mL 4 completed FELISHA hamilton, [facility] 10/10/2024 08:38:58 Influenza, MDCK, trivalent, preservative 4 completed FELISHA DESIR [facility] 10/10/2024 08:38:58 Past Encounters Encounter ID Performer Location Encounter Start Date Encounter Closed Date Diagnosis/Indication Diagnosis SNOMED-CT Code Diagnosis ICD10 Code Diagnosis IMO Codes Diagnosis Note [id number] Lyn Marmolejo MD [facility] ([facility]) [address] [place] [address] 02/07/2023 10:19:57 02/14/2023 10:45:49 Strain of thoracic region 81232382 S29.019A use your prn pain mediation. call if worsening. [id number] Lyn Marmolejo MD [facility] ([facility]) [address] [place] [phone] 02/14/2023 10:43:17 02/15/2023 17:26:16 Chronic low back pain 360849798 M54.50 [id number] Constantino Merlos DO [facility] ([facility]) [address] [place] [address] 02/21/2023 09:19:45 02/21/2023 11:05:37 Nasal congestion 59971443 R09.81 Acute sinusitis 65352183 J01.90 1 wk of symtoms, wrosening for last 3 days. covid and flu A and B negative today. will start abx due to comorbidit ies and wornseing symptoms. Return to office with no improvemen t or any problems. Go to ER with severe worsening or severe problems. [id number] Lyn Marmolejo MD [facility] ([facility]) [address] [place] [phone] 04/17/2023 08:30:45 04/26/2023 09:32:24 Diabetes mellitus 20456276 E11.59 Hypothyroidism 70393082 E03.9 Female uri nary stress incontinence 35455109 N39.3 Not interested in surgical management at this time Frail elderly 692072627 R54 [facility] [id number] 5323260 Z74.1 Dementia 77639869 F03.90 Coronary atherosclerosis 146686351 I25.541 [id number] Lyn Marmolejo MD [facility] ([facility]) [address] [place] [phone] 06/08/2023 12:20:01 06/08/2023 13:17:48 Neck pain 67529251 M54.2 [id number] Lyn Marmolejo MD [facility] ([facility]) [address] [place] [phone] 06/29/2023 08:43:26 07/09/2023 14:07:10 Benign essential hypertension 4501152 I10 Atrial fibrillation 4943 6004 I48.91 Hypothyroidism 26693685 E03.9 Coronary atherosclerosis 148145617 I25.965 [id number] Lyn Marmolejo MD [facility] ([facility]) [address] [place] [id number] 07/17/2023 15:47:18 08/01/2023 10:19:07 [id number] Lyn Marmolejo MD [facility] ([facility]) [address] [place] [id number] 07/18/2023 11:59:39 07/18/2023 15:46:29 Pruritic rash 76921649 L28.2 patch rash with scale left upper lateral backshe has no other rash patch etcfavorin g psoriasis. Acquired scoliosis 84623 6001 M41.9 [id number] Lyn Marmolejo MD [facility] ([facility]) [address] [place] [phone] 08/27/2023 13:38:26 09/03/2023 15:02:50 Atrial fibrillation 01857693 I48.91 [id number] Lyn Marmolejo MD [facility] ([facility]) [address] [place] [phone] 08/29/2023 11:48:52 08/29/2023 13:03:23 Hypothyroidism 16952108 E03.9 Type 2 brenda betes mellitus 85179480 E11.9 [id number] Lyn Marmolejo MD [facility] ([facility]) [address] [place] [id number] 09/25/2023 14:58:13 10/01/2023 11:08:35 Atrial fibrillation 73583300 I48.91 [id number] Lyn Marmolejo MD [facility] ([facility]) [address] [place] [id number] 09/28/2023 08:22:55 10/03/2023 10:36:00 Atrial fibrillation 08823837 I48.91 Hyperlipidemia 93507356 E78.00 Hypothyroidism 36182247 E03.9 Type 2 brenda betes mellitus 30766783 E11.9 Esophageal dysphagia 408 00671 R13.19 Cough 75991984 R05.9 [id number] Lyn Marmolejo MD [facility] ([facility]) [address] [place] [id number] 10/12/2023 09:31:01 10/12/2023 10:18:44 Benign essential hypertension 6203762 I10 [id number] SHARON GARZON [facility] ([facility]) [address] [place] [phone] 10/12/2023 13:42:39 10/18/2023 12:21:01 Dysuria 31753152 R30.0 Acute urin nhung tract infection 361333168 N39.0 [id number] Lyn Marmolejo MD [facility] [address] [place] [id number] 11/02/2023 11:29:05 11/06/2023 09:48:39 Atrial fibrillation 91074127 I48.91 [id number] Lyn Marmolejo MD [facility] [address] [place] [id number] 11/07/2023 09:01:58 11/07/2023 11:07:24 Dementia 12001188 F03.90 Atrial fibrillation 4943 6004 I48.91 Coronary atherosclerosis 528263620 I25.119 Hypothyroidism 16090356 E03.9 Hyperlipidemia 92654076 E78.00 Depressive disorder 3548 9007 F32.A will need med adjustment most likely. 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) [address] [place] [address] 71242-196 5 11/15/2023 14:44:57 11/19/2023 07:33:27 Atrial fibrillation 99607170 I48.91 [id number] Lyn Marmolejo MD [facility] ([facility]) [address] [place] [address] 30233-838 5 11/20/2023 09:33:11 11/21/2023 13:21:39 Atrial fibrillation 45394617 I48.91 [id number] Lyn Marmolejo MD [facility] ([facility]) [address] [place] [address] 93892-262 5 11/27/2023 13:33:40 11/27/2023 14:57:35 Atrial fibrillation 25602176 I48.91 [id number] Lyn Marmolejo MD [facility] ([facility]) [address] [place] [address] 74557-603 5 12/11/2023 10:07:28 12/14/2023 15:19:27 Atrial fibrillation 37865916 I48.91 [id number] Lyn Marmolejo MD [facility] ([facility]) [address] [place] [address] 98511-568 5 12/25/2023 15:15:19 12/27/2023 12:08:25 Atrial fibrillation 76714607 I48.91 [id number] Lyn Marmolejo MD [facility] ([facility]) [address] [place] [address] 12947-047 5 12/28/2023 08:26:17 01/01/2024 08:43:00 Atrial fibrillation 02538072 I48.91 Hyperlipidemia 19603533 E78.00 Hypothyroidism 81983288 E03.9 History of mechanical prosthetic mitral valve replacement 743499387 Z95.2 Frail elderly 781368212 R54 [facility] [id number] 0628954 Z74.1 [id number] Lyn Marmolejo MD [facility] ([facility]) [address] [place] [address] 04488-767 5 01/04/2024 10:25:22 01/09/2024 06:41:29 Atrial fibrillation 84600638 I48.91 [id number] LIA HERNANDEZ APRN [facility] ([facility]) [address] [place] [address] [phone] 5 01/15/2024 12:59:04 01/16/2024 11:43:55 Dysuria 31789744 R30.0 Urine will be sent for culture Low back pain 946202457 M54.50 Instructed on exercises. Follow up for worsening [id number] Lyn Marmolejo MD [facility] ([facility]) [address] [place] [address] 39748-405 5 01/25/2024 10:56:45 01/28/2024 07:51:23 Atrial fibrillation 91692139 I48.91 [id number] Lyn Marmolejo MD [facility] ([facility]) [address] [place] [address] 91550-820 5 01/28/2024 13:26:01 01/28/2024 15:49:26 Cough 11461890 R05.9 Lightheadedness 21099119 8 R42 Atrial fibrillation 4943 6004 I48.91 History of mechanical prosthetic mitral valve replacement 594845780 Z95.2 Dementia 60775637 F03.90 [id number] Lyn Marmolejo MD [facility] ([facility]) [address] [place] [address] 50696-444 5 02/13/2024 12:03:53 02/15/2024 09:32:04 Dysuria 96124416 R30.0 [id number] Lyn Marmolejo MD [facility] ([facility]) [address] [place] [address] 49955-047 5 02/13/2024 12:14:40 02/15/2024 11:11:53 Hyperlipidemia 68565949 E78.00 Dysuria 35480549 R30.0 Impaired mobility 619508 05 Z74.09 [id number] Lyn Marmolejo MD [facility] ([facility]) [address] [place] [address] [phone] 5 03/25/2024 12:47:12 03/28/2024 07:11:51 Atrial fibrillation 46747755 I48.91 [id number] Lyn Marmolejo MD [facility] ([facility]) [address] [place] [address] [phone] 5 03/25/2024 13:02:42 03/25/2024 14:26:32 Dysuria 45456163 R30.0 urine dip is normal will await micro. [id number] Lyn Marmolejo MD [facility] ([facility]) [address] [place] [address] 38146-478 5 04/04/2024 08:10:41 04/09/2024 09:06:52 Atrial fibrillation 89943247 I48.91 Depressive disorder 7586 9007 F32.A will need med adjustment most likely. awaiting more info Hyperlipidemia 84545000 E78.00 Hypothyroidism 89690095 E03.9 Dementia 46967474 F03.90 stable and without worrisome behaviors/ intrusive fears etc. [id number] Lyn Marmolejo MD [facility] ([facility]) [address] [place] [address] 07067-931 5 04/17/2024 11:27:00 05/14/2024 13:15:51 Atrial fibrillation 30814014 I48.91 [id number] Lyn Marmolejo MD [facility] [address] [place] [address] [phone] 5 05/19/2024 12:53:57 05/21/2024 22:28:15 Atrial fibrillation 46602768 I48.91 [id number] Lyn Marmolejo MD [facility] ([facility]) [address] [place] [address] 49198-471 5 05/19/2024 13:28:05 05/20/2024 17:37:09 Constipation 77298023 K59.00 [id number] Lyn Marmolejo MD [facility] [address] [place] [address] 74109-314 5 05/22/2024 13:52:36 05/26/2024 08:53:22 Atrial fibrillation 50693131 I48.91 [id number] Lyn Marmolejo MD [facility] [address] [place] [address] [phone] 5 05/27/2024 10:13:03 05/27/2024 15:56:07 Atrial fibrillation 28898525 I48.91 warfarin has been held for i bleeding will recheck today. History of mechanical prosthetic mitral valve replacement 564639198 Z95.2 Demetria 2346708 K92.1 has resoled since holding warfarin [id number] Lyn Marmolejo MD [facility] ([facility]) [address] [place] [address] 70621-618 5 06/09/2024 14:51:03 06/11/2024 12:46:51 Atrial fibrillation 74751995 I48.91 warfarin has been held for i bleeding will recheck today. [id number] Lyn Marmolejo MD [facility] ([facility]) [address] [place] [address] [phone] 5 07/04/2024 08:21:57 07/07/2024 13:50:59 Anxiety 06669059 F41.9 Depressive disorder 3548 9007 F32.A Hypothyroidism 25435510 E03.9 Chronic low back pain 27 1883070 M54.50 [id number] Lyn Marmolejo MD [facility] ([facility]) [address] [place] [address] 92564-580 5 08/07/2024 09:44:31 08/07/2024 13:32:53 Iron deficiency anemia 58433345 D50.9 Hypothyroidism 40298751 E03.9 Type 2 brenda betes mellitus 52073656 E11.9 Atrial fibrillation 4943 6004 I48.91 warfarin has been held for i bleeding will recheck today. [id number] Lyn Marmolejo MD [facility] ([facility]) [address] [place] [address] 07026-605 5 08/14/2024 13:17:46 08/14/2024 13:53:26 Right flank pain 160695260 R10.9 has greatly improved. will inquire about her bm frequency. [id number] Lyn Marmolejo MD [facility] ([facility]) [address] [place] [address] [phone] 5 08/15/2024 14:56:42 08/16/2024 23:09:29 Atrial fibrillation 36760296 I48.91 warfarin has been held for i bleeding will recheck today. [id number] Lyn Marmolejo MD [facility] ([facility]) [address] [place] [address] 31345-888 5 09/05/2024 15:29:03 09/08/2024 14:47:15 Atrial fibrillation 33173328 I48.91 warfarin has been held for i bleeding will recheck today. [id number] Lyn Marmolejo MD [facility] ([facility]) [address] [place] [address] 65280-608 5 09/22/2024 13:56:04 09/24/2024 23:01:26 Atrial fibrillation 41973126 I48.91 warfarin has been held for i bleeding will recheck today. [id number] Lyn Marmolejo MD [facility] ([facility]) [address] [place] [address] [phone] 5 10/02/2024 09:54:39 10/04/2024 06:10:42 Atrial fibrillation 45032074 I48.91 warfarin has been held for i bleeding will recheck today. [id number] Constantino Merlos DO [facility] ([facility]) [address] [place] [address] [phone] 5 10/06/2024 15:26:43 10/06/2024 16:30:28 Dysuria 01364397 R30.0 Acute urin nhung tract infection 532481361 N39.0 I reviewed UA results and discussed with pt. We will start antibiotic s. Pt will increase oral fluids and can use cranberry. Return to office with no improvemen t or any problems. Go to ER with severe worsening or severe problems.W e will obtain urine culture [id number] Lyn Marmolejo MD [facility] ([facility]) [address] [place] [address] 68199-480 5 10/10/2024 08:00:57 10/27/2024 13:21:20 Anxiety 59638217 F41.9 Atrial fibrillation 4943 6004 I48.91 warfarin therapy Hyperlipidemia 19946475 E78.00 Hypothyroidism 30974906 E03.9 Disorder o f vitamin B12 229561029 E53.8 [id number] Lyn Marmolejo MD [facility] ([facility]) [address] [place] [address] 15752-340 5 10/28/2024 12:52:20 10/30/2024 11:20:46 Abdominal pain 82589569 R10.9 Chronic constipation 236 668895 K59.09 Warfarin m onitoring status 753337002 Z51.81 Vitamin B1 2 deficiency (non anemic) 00388875 E53.8 Iron deficiency 75573136 E61.1 [id number] Lyn Marmolejo MD [facility] ([facility]) [address] [place] [address] 30851-774 5 11/11/2024 09:45:45 11/11/2024 10:22:04 Fever 730679440 R50.9 COVID-19 179643142 U07.1 [id number] Lyn Marmolejo MD [facility] ([facility]) [address] [place] [address] 94428-566 5 11/13/2024 14:46:08 11/14/2024 12:19:12 History of mechanical prosthetic mitral valve replacement 903553764 Z95.2 [id number] Lyn Marmolejo MD [facility] ([facility]) [address] [place] [address] 42010-521 5 12/26/2024 14:59:56 12/29/2024 13:20:48 Atrial fibrillation 51025522 I48.91 warfarin therapy [id number] Lyn Maromlejo MD [facility] ([facility]) [address] [place] [address] 02812-582 5 01/02/2025 07:55:44 01/02/2025 16:44:05 Anxiety 41992901 F41.9 Atrial fibrillation 4943 6004 I48.91 warfarin therapy Benign ess ential hypertension 2504360 I10 Dementia 74413465 F03.90 stable and without worrisome behaviors/ intrusive fears etc. Frail elderly 114745092 R54 Hypothyroidism 52306458 E03.9 Moderate r ecurrent major depression 34472381 F33.1 Need for p ersonal care assistance 7699142550 4592895 Z74.1 Hyperlipidemia 97744348 E78.00 Gastroesop hageal reflux disease 645751091 K21.9 Constipation 98960332 K5 9.00 Disorder o f vitamin B12 207650290 E53.8 b-12 lab with next blood draw [id number] SHARON WICK [facility] ([facility]) [address] [place], [place] 048525-204 5 01/07/2025 11:17:05 01/07/2025 12:46:26 Gastroesophageal reflux disease 488661256 K21.9 Return to BID dosing of pantoprazo le. Avoid all tomato based foods, carbonated drinks. Follow up with PCP. RTC with any new or worsening symptoms. [id number] Lyn Marmolejo MD [facility] ([facility]) [address] [place], [place] 048525-204 5 01/19/2025 14:42:57 01/20/2025 07:43:09 Atrial fibrillation 09514476 I48.91 warfarin therapy [id number] Lyn Marmolejo MD [facility] ([facility]) [address] [place] [address] 5 01/27/2025 13:05:26 01/27/2025 13:48:21 Pain of sternum 585847421 R07.2 deep breathing stretching lumbar support etc.chair exercisers [id number] Lyn Marmolejo MD [facility] ([facility]) [address] [place] [address] 5 02/17/2025 12:58:21 03/09/2025 14:31:11 Dysuria 47115603 R30.0 48890 Black feces 772668774 K9 2.1 515653 d/c pepto bismol Epigastric pain 61846026 R10.13 83961 History of Helicobacter pylori infection 8003974929 2536212 Z86.19 2179028 [id number] Lyn Marmolejo MD [facility] ([facility]) [address] [place], [place] [address]18775-204 5 03/10/2025 13:39:29 03/11/2025 10:21:30 Atrial fibrillation 67254213 I48.91 warfarin therapy [id number] Lyn Marmolejo MD [facility] ([facility]) [address] [place], [place] 048525-204 5 03/16/2025 11:42:25 03/16/2025 15:49:30 Mean corpuscular volume above reference range 753726293 R71.8 [id number] Lyn Marmolejo MD [facility] ([facility]) [address] [place] [address] 5 04/03/2025 08:43:13 04/07/2025 07:54:01 Atrial fibrillation 27077511 I48.91 warfarin therapy Benign ess ential hypertension 1981868 I10 Hyperlipidemia 01425203 E78.00 Hypothyroidism 08990891 E03.9 Iron defic iency anemia 26659154 D50.9 Difficulty walking 83430 2003 R26.2 97438 Does mobil ize using walker 182142847 Z99.89 06444831 [id number] Lyn Marmolejo MD [facility] ([facility]) [address] [place] [address] 5 05/07/2025 11:08:19 05/08/2025 11:02:05 Atrial fibrillation 88820775 I48.91 warfarin therapy [id number] Lyn Marmolejo MD [facility] ([facility]) [address] [place] [address] 5 05/18/2025 13:36:52 05/19/2025 13:07:58 Atrial fibrillation 59528794 I48.91 warfarin therapy [id number] SHARON HARDIN [facility] ([facility]) [address] [place] [address] 5 05/27/2025 10:23:37 05/27/2025 11:20:20 Abdominal mass 607814861 R19.00 03634014 Sent to ER for CT scan to r/o strangulat ed hernia to right inguinal region. [facility] [id number] Lyn Marmolejo MD [facility] ([facility]) [address] [place] [address] 5 06/05/2025 11:28:33 06/08/2025 12:35:39 Hypothyroidism 35616514 E03.9 Viral screening 02044489 4 Z11.59 2244790 Physical examination 588 0005 Z00.00 292995 Long-term current use of drug therapy 180806479 Z79.959 9040926 [id number] Lyn Marmolejo MD [facility] ([facility]) [address] [place] [address] 49917-412 5 06/11/2025 10:52:49 06/12/2025 12:43:36 Hypercalcemia 37492054 E83.52 [id number] Lyn Marmolejo MD [facility] ([facility]) [address] [place] [address] 27192-735 5 06/24/2025 12:18:01 06/30/2025 13:41:59 Hyperparathyroidism 39145271 E21.3 25269 corrected and ionized calcium are normalgfr 52 and stable Vitamin D deficiency 347 52328 E55.9 70283 [id number] Lyn Marmolejo MD [facility] ([facility]) [address] [place], [place] 048525-204 5 07/01/2025 10:24:23 07/02/2025 11:29:38 Atrial fibrillation 56150915 I48.91 warfarin therapy [id number] Lyn Marmolejo MD [facility] ([facility]) [address] [place] [address] 32022-356 5 07/03/2025 08:14:55 07/13/2025 10:06:37 Benign essential hypertension 0622728 I10 Coronary atherosclerosis 098421471 I25.119 Atrial fibrillation 4943 6004 I48.91 warfarin therapyd/c naproxen d/t hx of bleeding Hyperlipidemia 93398851 E78.00 Hypothyroidism 67448486 E03.9 Hyperparathyroidism 6699 9008 E21.3 92322 [id number] Lyn Marmolejo MD [facility] ([facility]) [address] [place] [address] 14710-514 5 07/06/2025 11:22:40 07/07/2025 09:33:46 History of mechanical prosthetic mitral valve replacement 357435115 Z95.2 [id number] Lyn Marmolejo MD [facility] ([facility]) [address] [place] [address] 26724-210 5 07/09/2025 13:42:58 07/10/2025 14:24:59 Atrial fibrillation 72526701 I48.91 warfarin therapyd/c naproxen d/t hx of bleeding [id number] Lyn Marmolejo MD [facility] ([facility]) [address] [place] [address] 03096-684 5 07/14/2025 13:52:08 07/15/2025 10:22:44 Dysuria 65661074 R30.0 44254 will call with ua results [id number] Lyn Marmolejo MD [facility] ([facility]) [address] [place] [address] 14349-438 5 07/16/2025 12:05:46 07/17/2025 11:01:38 Atrial fibrillation 16187083 I48.91 warfarin therapyd/c naproxen d/t hx of bleeding [id number] Lyn Marmolejo MD [facility] ([facility]) [address] [place] [address] 32404-234 5 07/23/2025 11:35:38 07/24/2025 12:08:17 Atrial fibrillation 81517511 I48.91 warfarin therapyd/c naproxen d/t hx of bleeding [id number] Lyn Marmolejo MD [facility] ([facility]) [address] [place] [address] 85084-235 5 07/30/2025 11:32:37 07/31/2025 09:44:15 History of mechanical prosthetic mitral valve replacement 577077771 Z95.2 [id number] Lyn Marmolejo MD [facility] ([facility]) [address] [place] [address] 03758-886 5 08/04/2025 10:06:02 08/04/2025 15:14:44 Right cervical root neuropathy 8142829511 2732102 M54.12 33299480 Pain of ri t shoulder region 7213032182 M25.511 71582040 [id number] Lyn Marmolejo MD [facility] ([facility]) [address] [place] [address] 78445-441 5 08/07/2025 11:39:45 08/10/2025 10:28:08 Atrial fibrillation 87259303 I48.91 warfarin therapyd/c naproxen d/t hx of bleeding Health Concerns Section Related Observation LastModified by Organization Detai ls LastModified Time None Recorded Concern Status LastModified by Organization Details LastModified Time None Recorded Advance Directives Directive None Recorded Payers Insurance Date Sequence Insurance Name Policy Number Policy Hernandez Covered Member ID Hernandez Member ID Guarantor Name 07/30/2025 [place] [facility] [place] Odilia Ulloa [id number] Odilia Ulloa 07/30/2025 2 [place] Odilia Ulloa [id number] Odilia Ulloa 08/05/2025 1 [place] - [place]PO) [id number] Odilia Ulloa [id number] Odilia Ulloa Notes Date Note Type Note Provider Name and Address Organization Details Recorded Time 08/04/2025 text/html Musculoskeletal PainReported by PatientHPIFor quality, patient reportssharpanddull. For severity, patient reportsworsening. For location, patient reportsright shoulder. For duration, patient reportspresent <1 month (2 weeks). For timing, patient reportsintermittent. For context, (no known cause). For associated symptoms, (myalgia). no fall or known injury.the pain started when she went to bed.the pain radiates down the arm Lyn Marmolejo MD [address] [place] [address], [phone], [facility] 08/04/2025 10:40:35 OBGyn Episode No OBEpisode recorded.
--- OUTSIDE RECORDS SUMMARY | 2025-08-14 06:28 | XMS_ITS | Encounter Summary ---
Author Organization [facility] Address [address] [place] [address] Care Team Providers Care Heel Top Lift Splitter Name Role Phone Rico Muñiz MD, Sharan Jaime Primary Care Provider Encounter Details Date Type Department Care Team (Late st Contact Info) Description 07/02/2001 Outpatient Historical [facility] Serge Arrington MD [address] [facility] [address] [place] [phone] Encounter for long-term (current) use of other medications (Primary Dx); Unspecified essential hypertension Social History Tobacco Use Types Packs/Day Years Used Date Smoking Tobacco: Never Assessed Comments Unknown Sex and Gender Information Value Date Recorded Sex Assigned at Not on file Legal Sex Female 5:42 AM POLL 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
--- OUTSIDE RECORDS SUMMARY | 2025-08-14 06:28 | XMS_ITS | Encounter Summary ---
Author Organization [facility] Address [address] [place] [address] Care Team Providers Care Return Agent Name Role Phone Rico Muñiz MD, Sharan Jaime Primary Care Provider Encounter Details Date Type Department Care Team (Latest Contact Info) Description 02/16/1999 Outpatient Historical [facility] Sharan Gómez Jr., MD [address] [place] [address] Unspecified essential hypertension (Primary Dx); [facility] (current) use of anticoagulants Social History Tobacco Use Types Packs/Day Years Used Date Smoking Tobacco: Never Assessed Comments Unknown Sex and Gender Information Value Date Recorded Sex Assigned at Not on file Legal Sex Female 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
--- OUTSIDE RECORDS SUMMARY | 2025-08-14 06:28 | XMS_ITS | Encounter Summary ---
Author Organization [facility] Address [address] [place] [address] Care Team Providers Care Production Planner Scheduler Name Role Phone Rico Muñiz MD, Sharan Jaime Primary Care Provider Encounter Details Date Type Department Care Team (Latest Contact Info) Description 06/18/1998 Outpatient Historical [facility] [place] [facility] AFaisal Lopez [place] [address] [place] [phone] Serge Arrington MD [address] [place] [address] Mitral valve disorder (Primary Dx); Unspecified essential hypertension; Hematuria; Routine medical exam Social History Tobacco Use Types Packs/Day Years Used Date Smoking Tobacco: Never Assessed Comments Unknown Sex and Gender Information Value Date Recorded Sex Assigned at Not on file Legal Sex Female 5:42 AM MANAGER ECONOMIC Gender Identity Not on file Sexual Orientation Not on file documented as of this encounter Plan of Treatment Not on file documented as of this encounter Visit Diagnoses Diagnosis Mitral valve disorder- Primary Mitral valve disorders Unspecified essential hypertension Hematuria Routine medical exam Routine general medical examination at a health care facility documented in this encounter Care Teams Production Planner Scheduler Relationship Specialty Start Date End Date Sharan Gómez Jr., MD [address] [place] [address] PCP - General 08/10/05 documented as of this encounter
--- OUTSIDE RECORDS SUMMARY | 2025-08-14 06:28 | XMS_ITS | Encounter Summary ---
Author Organization [facility] Address [address] [facility] Attn: [place] [address] Care Team Providers Care Motel Operator Name Role Phone Rico Muñiz MD, Sharan Jaime Primary Care Provider Encounter Details Date Type Department Care Team (Late st Contact Info) Description 12/20/2001 Outpatient Historical Sharan Gómez Jr., MD [address] [place] [address] Social History Tobacco Use Types Packs/Day Years Used Date Smoking Tobacco: Never Assessed Comments Unknown Sex and Gender Information Value Date Recorded Sex Assigned at Not on file Legal 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
--- OUTSIDE RECORDS SUMMARY | 2025-08-14 06:28 | XMS_ITS | Encounter Summary ---
Author Organization [facility] Address [address] [place] [address] Care Team Providers Care Baker Pie Name Role Phone Rico Muñiz MD, Sharan Jaime Primary Care Provider Encounter Details Date Type Department Care Team (Latest Contact Info) Description 01/04/2001 Outpatient Historical [facility] Sharan Gómez Jr., MD [address] [place] [address] Acute upper respiratory infections of unspecified site (Primary Dx); vermin exterminator (current) use of anticoagulants Social History Tobacco Use Types Packs/Day Years Used Date Smoking Tobacco: Never Assessed Comments Unknown Sex and Gender Information Value Date Recorded Sex Assigned at Not on file Legal Sex Female 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
--- OUTSIDE RECORDS SUMMARY | 2025-08-14 06:28 | XMS_ITS | Encounter Summary ---
Author Organization [facility] Address [address] [place] [address] Care Team Providers Care Stitch Marker Name Role Phone Rico Muñiz MD, Sharan Jaime Primary Care Provider Encounter Details Date Type Department Care Team (Latest Contact Info) Description 09/15/1998 Outpatient Historical [facility] Sharan Gómez Jr., MD [address] [place] [address] Unspecified essential hypertension (Primary Dx); Esophagitis, unspecified; intermediate (current) use of anticoagulants; Need vaccination-viral disease Social History Tobacco Use Types Packs/Day Years Used Date Smoking Tobacco: Never Assessed Comments Unknown Sex and Gender Information Value Date Recorded Sex Assigned at Not on file Legal Sex Female 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 Gender Identity Not on file Sexual Orientation Not on file documented as of this encounter Plan of Treatment Not on file documented as of this encounter Visit Diagnoses Diagnosis Unspecified essential hypertension- Primary Esophagitis, unspecified intermediate (current) use of anticoagulants Long-term (current) use of anticoagulants Need vaccination-viral disease Need for prophylactic vaccination and inoculation against other viral diseases documented in this encounter Care Teams Stitch Marker Relationship Specialty Start Date End Date Sharan Gómez Jr., MD [address] [place] [phone] PCP - General 08/10/05 documented as of this encounter
--- OUTSIDE RECORDS SUMMARY | 2025-08-14 06:28 | XMS_ITS | Encounter Summary ---
Author Organization [facility] Address [address] [place] [address] Care Team Providers Care Molding Machine Operator Name Role Phone Rico Muñiz MD, Sharan Jaime Primary Care Provider Encounter Details Date Type Department Care Team (Latest Contact Info) Description 11/05/2003 Outpatient Historical [facility] 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
--- OUTSIDE RECORDS SUMMARY | 2025-08-14 06:28 | XMS_ITS | Encounter Summary ---
Author Organization [facility] Address [address] [facility] Attn: [place] [address] Care Team Providers Care Complex Commercial Litigation Paralegal Name Role Phone Rico Muñiz MD, Sharan Jaime Primary Care Provider Encounter Details Date Type Department Care Team (Late st Contact Info) Description 07/03/2002 Outpatient Historical Екатерина Malone MD [address] [place] [address] Social History Tobacco Use Types Packs/Day Years Used Date Smoking Tobacco: Never Assessed Comments Unknown Sex and Gender Information Value Date Recorded Sex Assigned at Not on file Legal Sex Female 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
--- OUTSIDE RECORDS SUMMARY | 2025-08-14 06:28 | XMS_ITS | Encounter Summary ---
Author Organization [facility] Address [address] [place] [address] Care Team Providers Care Paint Spraying Machine Operator Helper Name Role Phone Rico Muñiz MD, Sharan Jaime Primary Care Provider Encounter Details Date Type Department Care Team (Latest Contact Info) Description 07/02/2001 Outpatient Historical [facility] [address] [place] [phone] [id number] Social History Tobacco Use Types Packs/Day Years Used Date Smoking Tobacco: Never Assessed Comments Unknown Sex and Gender Information Value Date Recorded Sex Assigned at Not on file Legal Sex Female 5:42 AM MANAGER OF HOUSEKEEPING Gender Identity Not on file Sexual Orientation Not on file documented as of this encounter Plan of Treatment Not on file documented as of this encounter Visit Diagnoses Not on filedocumented in this encounter Care Teams Paint Spraying Machine Operator Helper Relationship Specialty Start Date End Date Sharan Gómez Jr., MD [address] [place] [address] PCP - General 08/10/05 documented as of this encounter
--- OUTSIDE RECORDS SUMMARY | 2025-08-14 06:28 | XMS_ITS | Encounter Summary ---
Author Organization [facility] Address [address] [place] [address] Care Team Providers Care Turf Keeper Name Role Phone Rico Muñiz MD, Sharan Jaime Primary Care Provider Encounter Details Date Type Department Care Team (Latest Contact Info) Description 09/05/2001 Outpatient Historical [facility] Sharan óGmez Jr., MD [address] [place] [address] OSTEOARTHROS NOS-UNSPEC (Primary Dx); OSTEOPOROSIS NOS Social History Tobacco Use Types Packs/Day Years Used Date Smoking Tobacco: Never Assessed Comments Unknown Sex and Gender Information Value Date Recorded Sex Assigned at Not on file Legal Sex Female 5:42 AM SHIPPING SPECIALIST Gender Identity Not on file Sexual Orientation Not on file documented as of this encounter Plan of Treatment Not on file documented as of this encounter Visit Diagnoses Diagnosis Osteoarthrosis, unspecified whether generalized or localized, unspecified site- Primary Osteoporosis, unspecified documented in this encounter Care Teams Turf Keeper Relationship Specialty Start Date End Date Sharan Gómez Jr., MD [address] [place] [address] PCP - General 08/10/05 documented as of this encounter
--- OUTSIDE RECORDS SUMMARY | 2025-08-14 06:28 | XMS_ITS | Encounter Summary ---
Author Organization [facility] Address [address] [facility] Attn: [place] [address] Care Team Providers Care Advisory Intern Name Role Phone Rico Muñiz MD, Sharan Jaime Primary Care Provider Encounter Details Date Type Department Care Team (Late st Contact Info) Description 04/23/2002 Outpatient Historical Sharan Gómez Jr., MD [address] [place] [address] Social History Tobacco Use Types Packs/Day Years Used Date Smoking Tobacco: Never Assessed Comments Unknown Sex and Gender Information Value Date Recorded Sex Assigned at Not on file Legal Sex Female 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
--- OUTSIDE RECORDS SUMMARY | 2025-08-14 06:28 | XMS_ITS | Encounter Summary ---
Author Organization [facility] Address [address] [place] [address] Care Team Providers Care Chief Media Officer Name Role Phone Rico Muñiz MD, Sharan Jaime Primary Care Provider Encounter Details Date Type Department Care Team (Latest Contact Info) Description 08/06/2006 Outpatient Historical [facility] Int Luis AFaisal Lopez [place] [address] [place] [phone] Serge Arrington MD [address] [place] [address] Mitral Valve Disorder (Primary Dx); Other and Unspecified Hyperlipidemia; Screening for Malignant Neoplasm of the Cervix Social History Tobacco Use Types Packs/Day Years Used Date Smoking Tobacco: Never Assessed Comments Unknown Sex and Gender Information Value Date Recorded Sex Assigned at Not on file Legal 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
--- OUTSIDE RECORDS SUMMARY | 2025-08-14 06:28 | XMS_ITS | Encounter Summary ---
Author Organization [facility] Address [address] [place] [address] Care Team Providers Care Contract Administrative Assistant Name Role Phone Rico Muñiz MD, Sharan Jaime Primary Care Provider Encounter Details Date Type Department Care Team (Late st Contact Info) Description 10/15/2020 Lab Requisition [facility] [address] [place] [address] Paulina Peterson MD [address] [place] [address] Social History Tobacco Use Types Packs/Day Years Used Date Smoking Tobacco: Never Assessed Comments Unknown Sex and Gender Information Value Date Recorded Sex Assigned at Not on file Legal Sex Female 5:42 AM RADAR SCIENTIST Gender Identity Not on file Sexual Orientation Not on file documented as of this encounter Plan of Treatment Not on file documented as of this encounter Procedures Procedure Name Priority Date/Time Associated Diagnosis Comments PROTIME-INR Routine 10/15/2020 4:40 AM RADAR SCIENTIST documented in this encounter Results * (ABNORMAL) PROTIME-INR (10/15/2020 4:40 AM RADAR SCIENTIST) PROTIME 46.6(H) 11.9 - 15.5 Seconds 10/15/2020 4:26 PM RADAR SCIENTIST [facility] INR 4.9(H) 0.8 - 1.2 10/15/2020 4:26 PM RADAR SCIENTIST [facility] Blood Collection / Unknown 10/15/2020 4:40 AM RADAR SCIENTIST 10/15/2020 4:01 PM RADAR SCIENTIST Narrative [facility] - 10/15/2020 4:26 PM RADAR SCIENTIST Expected Values for INR: DVT/PE Goal INR 2.5; range 2.0 - 3.0 Valve Replacement Tissue Goal INR 2.5; range 2.0 - 3.0 Valve Replacement Mechanical Goal INR 3.0; range 2.5 - 3.5 POST-PR Goal INR 2.5; range 2.0 - 3.0 or Goal INR 3.0; range 2.5 - 3.5 Atrial Fibrillation Goal INR 2.5; range 2.0 - 3.0 Ischemic Stroke Goal INR 2.5; range 2.0 - 3.0 For additional information see Guidelines for Anticoagulation available from the pharmacy [facility] Paulina Peterson MD HEMATOLOGY ORDERABLES [employer] smart Result [facility] [address] [place] [address] documented in this encounter Visit Diagnoses Not on filedocumented in this encounter Care Teams Contract Administrative Assistant Relationship Specialty Start Date End Date Sharan Gómez Jr., MD [address] [place] [phone] PCP - General 08/10/05 documented as of this encounter
--- OUTSIDE RECORDS SUMMARY | 2025-08-14 06:28 | XMS_ITS | Encounter Summary ---
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 Social History Tobacco Use Types Packs/Day Years Used Date Smoking Tobacco: Never Assessed Comments Unknown Sex and Gender Information Value Date Recorded Sex Assigned at Not on file Legal Sex Female 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 Gender Identity Not on file Sexual Orientation Not on file documented as of this encounter Plan of Treatment Not on file documented as of this encounter Visit Diagnoses Diagnosis Other and unspecified hyperlipidemia- Primary Other nonspecific finding on examination of urine Personal history of other disorder of urinary system senior care (current) use of anticoagulants Long-term (current) use of anticoagulants documented in this encounter Care Teams Digital Solutions Architect Relationship Specialty Start Date End Date Sharan Gómez Jr., MD [address] [place] [address] PCP - General 08/10/05 documented as of this encounter
--- OUTSIDE RECORDS SUMMARY | 2025-08-14 06:28 | XMS_ITS | Encounter Summary ---
Author Organization [facility] Address [address] [place] [address] Care Team Providers Care Vpk Teacher Name Role Phone Rico Muñiz MD, Sharan Jaime Primary Care Provider Encounter Details Date Type Department Care Team (Latest Contact Info) Description 04/23/2002 Outpatient Historical [facility] Sharan Gómez Jr., MD [address] [place] [address] Pure hypercholesterolem (Primary Dx); HYPERCALCEMIA Social History Tobacco Use Types Packs/Day Years Used Date Smoking Tobacco: Never Assessed Comments Unknown Sex and Gender Information Value Date Recorded Sex Assigned at Not on file Legal Sex Female 5:42 AM EVENTS AND PROMOTIONS ASSISTANT Gender Identity Not on file Sexual Orientation Not on file documented as of this encounter Plan of Treatment Not on file documented as of this encounter Visit Diagnoses Diagnosis Pure hypercholesterolem- Primary Pure hypercholesterolemia Hypercalcemia documented in this encounter Care Teams Vpk Teacher Relationship Specialty Start Date End Date Sharan Gómez Jr., MD [address] [place] [address] PCP - General 08/10/05 documented as of this encounter
--- OUTSIDE RECORDS SUMMARY | 2025-08-14 06:28 | XMS_ITS | Encounter Summary ---
Author Organization [facility] Address [address] [place] [address] Care Team Providers Care Yoghurt Maker Name Role Phone Rico Muñiz MD, Sharan Jaime Primary Care Provider Encounter Details Date Type Department Care Team (Latest Contact Info) Description 08/31/2000 Outpatient Historical [facility] Sharan Gómez Jr., MD [address] [place] [address] Pure hypercholesterolem (Primary Dx); Dietary surveil/rehabilitation counsellor Social History Tobacco Use Types Packs/Day Years Used Date Smoking Tobacco: Never Assessed Comments Unknown Sex and Gender Information Value Date Recorded Sex Assigned at Not on file Legal Sex Female 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
--- OUTSIDE RECORDS SUMMARY | 2025-08-14 06:28 | XMS_ITS | Encounter Summary ---
Author Organization [facility] Address [address] [place] [address] Care Team Providers Care Grain Thresher Name Role Phone Rico Muñiz MD, Sharan Jaime Primary Care Provider Encounter Details Date Type Department Care Team (Latest Contact Info) Description 07/06/2003 Outpatient Historical [facility] 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
--- OUTSIDE RECORDS SUMMARY | 2025-08-14 06:28 | XMS_ITS | Encounter Summary ---
Author Organization [facility] Address [address] [place] [address] Care Team Providers Care Liquor Store Manager Name Role Phone Rico Muñiz MD, Sharan Jaime Primary Care Provider Encounter Details Date Type Department Care Team (Latest Contact Info) Description 06/28/2001 Outpatient Historical [facility] Sharan Gómez Jr., MD [address] [place] [address] Esophageal reflux (Primary Dx); Heart valve replaced by other means Social History Tobacco Use Types Packs/Day Years Used Date Smoking Tobacco: Never Assessed Comments Unknown Sex and Gender Information Value Date Recorded Sex Assigned at Not on file 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S AND REGULATORY OFFICERS Gender Identity Not on file Sexual Orientation Not on file documented as of this encounter Plan of Treatment Not on file documented as of this encounter Visit Diagnoses Diagnosis Esophageal reflux- Primary Heart valve replaced by other means documented in this encounter Care Teams Liquor Store Manager Relationship Specialty Start Date End Date Sharan Gómez Jr., MD [address] [place] [address] PCP - General 08/10/05 documented as of this encounter
--- OUTSIDE RECORDS SUMMARY | 2025-08-14 06:28 | XMS_ITS | Continuity of Care Document ---
Author Organization DAI Haas [facility], [place], [facility] ([facility]) Address [address] [place] [address] Care Team Providers Care Clean Rice Grader And Reel Tender Name Role Phone LYN MARMOLEJO Primary Care Provider Assessment No assessment recorded. Plan of Treatment Reminders Order Date Submit Date Provider Last Modified By Organization Details Last Modified Time Details Appointments None record ed. Lab PT/INR 025 08/07/20 QUENTIN [facility]), [address] [place], [address], 11:56:37 Referral None record ed. Procedures None record ed. Surgeries None record ed. Imaging None record ed. Medication Orders None record ed. Patient TargetsNo targets recorded. Patient InstructionsNo instructions recorded. Reason for Referral None Reported. Results Created Date Observation Date Name Description Value Unit Range Abnormal Flag Note LastModifiedBy Organization Detail LastModifiedTime 07/09/2007/09/2025 PT/IN R Protime 34.6 Not Available [facility]) [address] [place], [address], 07/09/2025 13:44:17 07/09/20 25 07/09/2025 PT/IN R INR 2.9 Not Available [facility]) [address] [place], [address], 07/09/2025 13:44:17 09/1607/14/2025 URINA LYSIS WITH MICRO color YELLOW Not Available [facility] [address], [place], [address], 07/14/2025 14:52:32 07/14/20 25 07/14/2025 URINA LYSIS WITH MICRO clarity CLEAR Not Available [facility] [address], [place], [address], 07/14/2025 14:52:32 07/14/2007/14/2025 URINA LYSIS WITH MICRO glu NEGATI VE Not Available [facility] [address], [place], [address], 07/14/2025 14:52:32 07/14/20 25 07/14/2025 URINA LYSIS WITH MICRO bili NEGATI VE Not Available [facility] [address], [place], [address], 07/14/2025 14:52:32 07/14/20 25 07/14/2025 URINA LYSIS WITH MICRO ket NEGATI VE Not Available [facility] [address], [place], [address], 07/14/2025 14:52:32 07/14/20 25 07/14/2025 URINA LYSIS WITH MICRO S.g 1.010 1.005- 1.025 Not Available [facility] [address], [place], [address], 07/14/2025 14:52:32 07/14/20 25 07/14/2025 URINA LYSIS WITH MICRO pH 5.0 5.0-7. 0 Not Available [facility] [address], [place], [address], 07/14/2025 14:52:32 07/14/20 25 07/14/2025 URINA LYSIS WITH MICRO pro NEGATI VE Not Available [facility] [address], [place], [address], 07/14/2025 14:52:32 07/14/20 25 07/14/2025 URINA LYSIS WITH MICRO uro 0.2 E.U./D L Not Available [facility] [address], [place], [address], 07/14/2025 14:52:32 07/14/20 25 07/14/2025 URINA LYSIS WITH MICRO nit NEGATI VE Not Available [facility] [address], [place], [address], 07/14/2025 14:52:32 07/14/20 25 07/14/2025 URINA LYSIS WITH MICRO blo NEGATI VE Not Available [facility] [address], [place], [address], 07/14/2025 14:52:32 07/14/20 25 07/14/2025 URINA LYSIS WITH MICRO jose elias NEGATI VE Not Available [facility] [address], [place], [address], 07/14/2025 14:52:32 07/14/20 25 07/14/2025 URINA LYSIS WITH MICRO WBC 0-1 abnormal Not Available [facility] [address], [place], [address], 07/14/2025 14:52:32 07/14/20 25 07/14/2025 URINA LYSIS WITH MICRO RBC NEGATI VE Not Available [facility] [address], [place], [address], 07/14/2025 14:52:32 07/14/20 25 07/14/2025 URINA LYSIS WITH MICRO epi cells 1-2 abnormal Not Available [facility] [address], [place], [address], 07/14/2025 14:52:32 07/14/20 25 07/14/2025 URINA LYSIS WITH MICRO bacteria 1-2 HYALIN E CAST abnormal Not Available [facility] [address], [place], [address], 07/14/2025 14:52:32 07/14/20 25 07/14/2025 URINA LYSIS WITH MICRO other NEG Not Available [facility] [address], [place], [address], 07/14/2025 14:52:32 07/14/2007/16/2025 CULTU RE, URINE , ROUTI NE culture, urine, routine SEE NOTE CULTU RE, URINE , ROUTI NE Micro Numbe r: [id number] Test Statu s: Final Speci men Sourc e: Urine Speci men Quali ty: Adequ ate Resul t: No Growt h Not Available [place] [address] [place], [address], 07/16/2025 02:51:13 07/17/2007/17/2025 PT/IN R Protime 34.4 Not Available [facility]) [address] [place], [address], 07/16/2025 12:07:15 07/17/2007/17/2025 PT/IN R INR 2.9 Not Available [facility] ([facility]) [address] [place], [address], 07/16/2025 12:07:15 07/23/2007/23/2025 PT/IN R Protime 47.0 Not Available [facility] ([facility]) [address] [place], [address], 07/23/2025 11:36:06 07/23/2007/23/2025 PT/IN R INR 3.9 Not Available [facility] ([facility]) [address] [place], [address], 07/23/2025 11:36:06 07/30/2007/30/2025 PT/IN R Protime 30.2 Not Available [facility] ([facility]) [address] [place], [address], 07/30/2025 11:33:15 07/30/2007/30/2025 PT/IN R INR 2.5 Not Available [facility] ([facility]) [address] [place], [address], 07/30/2025 11:33:15 08/07/2008/07/2025 PT/IN R Protime 26.3 Not Available [facility] ([facility]) [address] [place], [address], 08/07/2025 11:40:14 08/07/2008/07/2025 PT/IN R INR 2.2 Not Available [facility] ([facility]) [address] [place], [address], 08/07/2025 11:40:14 08/05/2008/04/2025 XR, cervi luisito spine , 2 or 3 view No observ ation record ed. [facility] [address] [place], [address], 08/07/2025 13:25:55 08/05/2008/04/2025 XR, shoul vito, 2 or more view No observ ation record ed. [facility] [address] [place], [address], 08/07/2025 13:25:55 Result Notes None recorded. Problems Name Problem SNOMED Code Status Onset Date Resolution Date Notes Provider Name and Address Organization Details Recorded Time Depressi ve disorder 86160449 Completed 202010/14/2021 Depressi on - Status is Inactive ; 10/14/20 11:08AM by Maryellen Marmolejo PA-C, Annotati on/Adden dum; Promoted ; acuity set as *; FELISHA hamilton [facility] 5 07:56:57 Herpes zoster 0637985 Completed 202201/02/[address] [facility] 5 07:56:03 Dysthymi a 59027876 Active 2022 DEPRESSI ON WITH ANXIETY FELISHA hamilton [facility] 5 07:55:28 Benign essentia l hyperten jovanni 1331284 Active [address] [facility] 5 07:55:28 Gastroes ophageal reflux disease 885987644 Active [address] [facility] 5 07:55:28 Fracture of upper end of humerus 843922487 Completed 202201/02/2025 CLOSED FRACTURE OF PROXIMAL END OF RIGHT HUMERUS, SEQUELA FELISHA hamilton, [facility] 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 5 07:56:22 Atrial fibrilla tion 64837292 Active [address] [facility] 3 14:45:05 Coronary atherosc lerosis 210027371 Active 2022 bare metal stents to circ and LAD 2011 FELISHA DESIR null, [facility] 3 14:46:30 Iron deficien cy anemia 06540765 Active 2022 FELISHA DESIR null, [facility] 5 07:55:28 Hypothyr oidism 22404549 Active 2022 FELISHA DESIR null, [facility] 3 14:45:59 Anxiety 93581055 Active 2022 FELISHA DESIR null, [facility] 3 14:46:54 Viral hepatiti s C 45362902 Active 2022 FELISHA DESIR null, [facility] 5 07:55:28 Moderate recurren t major depressi on 30409569 Active 2023 FELISHA DESIR null, [facility] 5 07:55:28 Need for personal care assistan ce 92475518749 568227 Active 2023 FELISHA DESIR null, [facility] 5 07:55:28 Frail elderly 020624079 Active 2023 FELISHA DESIR null, [facility] 5 07:55:28 Seasonal allergic rhinitis 508345592 Active 2023 FELISHA DESIR null, [facility] 5 07:55:28 Chronic pain 71507301 Active 2023 FELISHA DESIR null, [facility] 5 07:55:28 Dementia 01075580 Active 2023 FELISHA DESIR null, [facility] 5 07:55:28 Constipa tion 55539315 Active 2023 [facility] 07:55:44 Hyperlip idemia 38071484 Active 2024 [facility] 07:59:38 Occult blood detected in feces 67630542 Active 2024 [facility] 5 09:13:35 Mean corpuscu lar volume above referenc e range 021574037 Active 2024 [facility] 09:14:07 Hypercal cemia 12128986 Active 2024 [facility] 10:07:49 Vitamin D deficien cy 76926726 Active 2024 Lyn Marmolejo MD [address] [place] [address], [address], [facility] 5 12:54:55 Hyperpar athyroid ism 57875470 Active 2024 Lyn Marmolejo MD [address] [place] [address], [address], [facility] 5 12:54:56 Dysuria 21629022 Active 2024 Dotty Celis [facility] 5 14:08:08 Problem Notes None recorded. Procedures Surgical History Date Name Laterality Status Provider Name and Address Organization Details Recorded Time 2024 esophagogastroduodenoscopy completed YANELIS DESIR [facility] 5 12:23:16 2024 colonoscopy completed [facility] 5 10:20:11 2023 esophagogastroduodenoscopy completed KIARA DUCKWORTH [facility] 4 12:40:14 2023 colonoscopy completed Lyn Marmolejo MD [address] [place] [address], [address], [facility] 5 10:19:30 cholecystectomy completed [facility] 3 14:48:40 replacement of mitral valve complete d [facility] 3 14:49:22 section completed [facility] 3 15:14:43 Imaging Results None recorded. Procedure Notes None recorded. Medical Equipment None Reported. Allergies Allergen ID Allergen Name Allergen Category Reaction Reaction Severity Criticality Documentation Date Start Date Code Code System Note Provider Name and Address Organization Details Recorded Time 1376 morphine medicatio n Not available Not available Not available 02/07/2023 7052 RxNorm Dotty Vimal [facility] 3 10:45:47 1377 diltiazem Not available Not available Not available Not available 02/07/2023 3443 RxNorm Dotty Vimal [facility] 3 10:45:54 4552 Bactrim medicatio n other severe high 04/17/2023 04014 9 RxNorm do not give d/t couma din Lola Vidal [facility] 4 13:34:33 97282 diltiazem hydrochlo ride medicatio n Not available Not available Not available 05/26/2023 1 RxNorm Comme nt: Recor ded 12/29 7:56A M by Yanelis Kitchen on, CONSTRUCTION ENGINEERING MANAGER, 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 ; Promo talib; Trey bernal ce: *; Reaso n: Drug aller gy; ; [facility] 3 12:26:44 20213 morphine sulfate medicatio n Not available Not available Not available 05/26/2023 10009 RxNorm Comme nt: Recor ded 12/29 7:56A M by Yanelis Allens on, CONSTRUCTION ENGINEERING MANAGER, 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 ; Promo talib; Trey bernal ce: *; Reaso n: Drug aller gy; ; [facility] 3 12:26:48 Medications Name Sig Start Date [...] hours by oral route for 7 days. 12/15/ 2023 01/10 /2024 completed Not Available Not Available Not Available [...] warfarin 3 mg tablet 1 tablet Mon, Fri 07/23 completed Not Available Not Available Not [...] tablet daily 06/08 completed 0; Recorded 12/30/19 7:56AM by [...] B-12 daily 11/07 completed 436; Recorded 01/02/20 3:42PM by Felisha Desir LPN (Authori pushpad through Lyn Marmolejo MD), Refill Request; Refill Quantity : 60; Tablet; Not Available Not Available Not Available metoprolo l tartrate twice daily 06/08 completed 0; Recorded 12/30/19 7:56AM by Felisha Desir LPN, Office Visit; Not Available Not Available Not Available folic acid 06/08 completed Not Available Not Available Not Available iron every other day 06/08 completed 436; Recorded 09/25/20 2:38PM by Felisha Desir LPN (Authori candelario [...] 11/13/19 3:03PM by Dotty Larry RN (Authori pushpad through Lyn Marmolejo MD), Refill Request; Refill [...] [facility] Levothyro xine Sodium daily 06/08 completed 98555; Recorded 01/09/20 6:06PM by Shirley Quevedo (Authori zed through Travis Sousa MD), Refill Request; Refill Quantity : 30; Tablet; Not Available Not Available Not Available galantami ne 04/17 completed Not Available Not Available Not Available Potassium Chloride ER twice daily 06/08 completed 436; Recorded 03/13/20 3:22PM by Felisha Desir LPN (Authori candelario through [...] Tobacco Smoking Status Former Smoker FELISHA DESIR [facility] 04/17/2023 14:48:01 What Was The Date Of Your Most Recent Tobacco Screening? 05/27/2025 [email or web address] Information not available 05/27/2025 Sex: Unknown Functional Status Question Answer Note LastModified by Organizat ion Details LastModified Time Do you use any illicit or recreational drugs? No [email or web address] Information not available 04/17/2023 Do you or have you ever used any other forms of tobacco or nicotine? No [email or web address] Information not available 06/29/2023 What is your level of alcohol consumption? None [email or web address] Information not available 04/17/2023 Mental Status None recorded. Family History Relationship Description Onset Age of this Age Resolved Age Notes LastModified by Organization Details LastModified Time Unspecified Relation Coronary atherosclero sis [email or web address] Not available 06/29 15:13:48 Medical History No medical history recorded. Gynecological HistoryNo gynecological history recorded. Obstetrics History GPAL:G 0 P 0 0 0 0 Immunizations Vaccine Type Date Status Note Provider Nam e and Address Organization Details Recorded Time Influenza, MDCK, quadrivalent, PF 2 [facility] 10/10/2024 08:38:58 COVID-19, mRNA, LNP-S, PF, 100 mcg/0.5mL dose or 50 mcg/0.25mL dose [address] [facility] 10/10/2024 08:38:58 COVID-19, mRNA, LNP-S, PF, 100 mcg/0.5mL dose or 50 mcg/0.25mL dose [address] [facility] 10/10/2024 08:38:58 COVID-19, mRNA, LNP-S, PF, 100 mcg/0.5mL dose or 50 mcg/0.25mL dose 2 completed [facility] 10/10/2024 08:38:58 Pneumococcal conjugate PCV20, polysaccharide FHE236 conjugate, adjuvant, PF [address] [facility] 10/10/2024 08:38:58 COVID-19, mRNA, LNP-S, bivalent, PF, 50 mcg/0.5 mL or 25mcg/0.25 mL dose [address] [facility] 10/10/2024 08:38:58 pneumococcal polysaccharide PPV23 [address] [facility] 04/17/2023 12:02:00 Tdap [address] [facility] 10/10/2024 08:38:58 Influenza, split virus, trivalent, PF 3 completed FELISHA DESIR null, [facility] 04/17/2023 12:02:00 influenza, split (incl. purified surface antigen) 0 completed FELISHA DESIR null, [facility] 04/17/2023 12:02:00 Hep A, adult 1 completed FELISHA DESIR null, [facility] 10/10/2024 08:38:58 Hep A, adult 9 completed [facility] 10/10/2024 08:38:58 Influenza, split virus, quadrivalent, PF 1 completed FELISHA DESIR null, [facility] 10/10/2024 08:38:58 Influenza, split virus, quadrivalent, PF 9 completed FELISHA DESIR null, [facility] 10/10/2024 08:38:58 Influenza, MDCK, trivalent, PF 4 completed [facility] 10/10/2024 08:38:58 Influenza, MDCK, quadrivalent, preservative 3 completed FELISHA DESIR null, [facility] 10/10/2024 08:38:58 pneumococcal polysaccharide PPV23 8 completed Lola hamilton, [facility] 07/02/2024 08:41:52 Influenza, split virus, quadrivalent, PF 8 completed Lola hamilton, [facility] 07/02/2024 08:41:52 zoster recombinant 3 completed Lola Vidal null, [facility] 07/02/2024 14:52:40 COVID-19, mRNA, LNP-S, PF, 50 mcg/0.5 mL 4 completed FELISHA DESIR null, [facility] 10/10/2024 08:38:58 Influenza, MDCK, trivalent, preservative 4 completed FELISHA DESIR null, [facility] 10/10/2024 08:38:58 Past Encounters Encounter ID Performer Location Encounter Start Date Encounter Closed Date Diagnosis/Indication Diagnosis SNOMED-CT Code Diagnosis ICD10 Code Diagnosis IMO Codes Diagnosis Note [id number] Lyn Marmolejo MD [facility] ([facility]) [address] [place] [address] 5 07/09/2025 13:42:58 07/10/2025 14:24:59 Atrial fibrillation 20089318 I48.91 warfarin therapyd/c naproxen d/t hx of bleeding [id number] Lyn Marmolejo MD [facility]3]) [address] [place] [address] 5 07/14/2025 13:52:08 07/15/2025 10:22:44 Dysuria 74856845 R30.0 15010 will call with ua results [id number] Lyn Marmolejo MD [facility]3]) [address] [place], [place] [address] 07/16/2025 12:05:46 07/17/2025 11:01:38 Atrial fibrillation 64780340 I48.91 warfarin therapyd/c naproxen d/t hx of bleeding [id number] Lyn Marmolejo MD [facility] ([facility]3]) [address] [place], [place] [address] 07/23/2025 11:35:38 07/24/2025 12:08:17 Atrial fibrillation 68177135 I48.91 warfarin therapyd/c naproxen d/t hx of bleeding [id number] Lyn Marmolejo MD [facility] ([facility]) [address] [place] [address] 07/30/2025 11:32:37 07/31/2025 09:44:15 History of mechanical prosthetic mitral valve replacement 502018198 Z95.2 [id number] Lyn Marmolejo MD [facility] ([facility]) [address] [place] [address] 08/04/2025 10:06:02 08/04/2025 15:14:44 Right cervical root neuropathy 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 2630965 M54.12 29370159 Pain of ri [facility] shoulder region 3673964302 M25.511 [id number] Lyn Marmolejo MD [facility] ([facility]) [address] [place] [address] 08/07/2025 11:39:45 08/10/2025 10:28:08 Atrial fibrillation 75687472 I48.91 warfarin therapyd/c naproxen d/t hx of bleeding Health Concerns Section Related Observation LastModified by Organization Detai ls LastModified Time None Recorded Concern Status LastModified by Organization Details LastModified Time None Recorded Payers Encounter Date Sequence Insurance Name Policy Number Policy Hernandez Covered Member ID Hernandez Member ID Guarantor Name 08/07/2025 1 [place]ANT[place] - PPO) [id number] Odilia Ulloa [id number] Odilia Ulloa 08/07/2025 2 [place] Odilia Ulloa [id number] Odilia Ulloa OBGyn Episode No OBEpisode recorded.
--- OUTSIDE RECORDS SUMMARY | 2025-08-14 06:28 | XMS_ITS | Encounter Summary ---
Author Organization [facility] Address [address] [place] [address] Care Team Providers Care Men'S Furnishings Salesperson Name Role Phone Rico Muñiz MD, Sharan Jaime Primary Care Provider Encounter Details Date Type Department Care Team (Latest Contact Info) Description 08/05/2001 Outpatient Historical [facility] Sharan Gómez Jr., MD [address] [place] [address] Generalized anxiety disorder (Primary Dx); Hypopotassemia Social History Tobacco Use Types Packs/Day Years Used Date Smoking Tobacco: Never Assessed Comments Unknown Sex and Gender Information Value Date Recorded Sex Assigned at Not on file 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
--- OUTSIDE RECORDS SUMMARY | 2025-08-14 06:28 | XMS_ITS | Encounter Summary ---
Author Organization [facility] Address [address] [place] [address] Care Team Providers Care Pelt Dropper Name Role Phone Rico Muñiz MD, Sharan Jaime Primary Care Provider Encounter Details Date Type Department Care Team (Latest Contact Info) Description 04/19/2001 Outpatient Historical HIS [facility] Arun Nichols NO ADDRESS ON FILE Contusion of hand(s) (Primary Dx) Social History Tobacco Use Types Packs/Day Years Used Date Smoking Tobacco: Never Assessed Comments Unknown Sex and Gender Information Value Date Recorded Sex Assigned at Not on file Legal Sex Female 5:[address] JUDGE Gender Identity Not on file Sexual Orientation Not on file documented as of this encounter Plan of Treatment Not on file documented as of this encounter Visit Diagnoses Diagnosis Contusion of hand(s)- Primary documented in this encounter Care Teams Pelt Dropper Relationship Specialty Start Date End Date Sharan Gómez Jr., MD [address] [place] [address] PCP - General 08/10/05 documented as of this encounter
--- OUTSIDE RECORDS SUMMARY | 2025-08-14 06:28 | XMS_ITS | Encounter Summary ---
Author Organization [facility] Address [address] [facility] Attn: [place] [address] Care Team Providers Care Players Club Representative Name Role Phone Rico Muñiz MD, Sharan Jaime Primary Care Provider Encounter Details Date Type Department Care Team (Late st Contact Info) Description 08/05/2001 Outpatient Historical Sharan Gómez Jr., MD [address] [place] [address] Social History Tobacco Use Types Packs/Day Years Used Date Smoking Tobacco: Never Assessed Comments Unknown Sex and Gender Information Value Date Recorded Sex Assigned at Not on file 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
--- OUTSIDE RECORDS SUMMARY | 2025-08-14 06:28 | XMS_ITS | Encounter Summary ---
Author Organization [facility] Address [address] [place] [address] Care Team Providers Care Motor Tester Name Role Phone Rico Muñiz MD, Sharan Jaime Primary Care Provider Encounter Details Date Type Department Care Team (Latest Contact Info) Description 07/06/2006 Outpatient Historical [facility] Michelle [address] [place] [address] Jennifer Cash MD NO ADDRESS ON FILE Unspecified Essential Hypertension (Primary Dx); Other Chest Pain Social History Tobacco Use Types Packs/Day Years Used Date Smoking Tobacco: Never Assessed Comments Unknown Sex and Gender Information Value Date Recorded Sex Assigned at Not on file Legal Sex Female 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
--- OUTSIDE RECORDS SUMMARY | 2025-08-14 06:28 | XMS_ITS | Encounter Summary ---
Author Organization [facility] Address [address] [facility] Attn: [place] [address] Care Team Providers Care Courier Driver Name Role Phone Rico Muñiz MD, Sharan Jaime Primary Care Provider Encounter Details Date Type Department Care Team (Late st Contact Info) Description 01/04/2001 Outpatient Historical Sharan Gómez Jr., MD [address] [place] [address] Social History Tobacco Use Types Packs/Day Years Used Date Smoking Tobacco: Never Assessed Comments Unknown Sex and Gender Information Value Date Recorded Sex Assigned at Not on file 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
--- OUTSIDE RECORDS SUMMARY | 2025-08-14 06:28 | XMS_ITS | Encounter Summary ---
Author Organization [facility] Address [address] [place] [address] Care Team Providers Care Assembly Person Name Role Phone Rico Muñiz MD, Sharan Jaime Primary Care Provider Encounter Details Date Type Department Care Team (Late st Contact Info) Description 10/14/2020 Lab Requisition [facility] [address] [place] [address] Paulina Peterson MD [address] [place] [address] Social History Tobacco Use Types Packs/Day Years Used Date Smoking Tobacco: Never Assessed Comments Unknown Sex and Gender Information Value Date Recorded Sex Assigned at Not on file 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 INR 4.4(H) 0.8 - 1.2 10/14/2020 4:10 PM ORDERLIES TEACHER [facility] Blood Collection / Unknown 10/14/2020 6:16 AM ORDERLIES TEACHER 10/14/2020 3:45 PM ORDERLIES TEACHER Narrative [facility] - 10/14/2020 4:10 PM ORDERLIES TEACHER Expected Values for INR: DVT/PE Goal INR [...] Peterson MD HEMATOLOGY ORDERABLES Maame smart Result [facility] [address] [place] [address] documented in this encounter Visit Diagnoses Not on filedocumented in this encounter Care Teams Assembly Person Relationship Specialty Start Date End Date Sharan Gómez Jr., MD [address] [place] [address] PCP - General 08/10/05 documented as of this encounter
--- OUTSIDE RECORDS SUMMARY | 2025-08-14 06:28 | XMS_ITS | Encounter Summary ---
Author Organization [facility] Address [address] [place] [address] Care Team Providers Care Television Service Engineer Name Role Phone Rico Muñiz MD, Sharan Jaime Primary Care Provider Encounter Details Date Type Department Care Team (Late st Contact Info) Description 06/21/2000 Outpatient Historical [facility] Serge Arrington MD [address] [facility] [address] [place] [phone] Unspecified essential hypertension (Primary Dx); Mitral valve disorder; residential (current) use of anticoagulants Social History Tobacco Use Types Packs/Day Years Used Date Smoking Tobacco: Never Assessed Comments Unknown Sex and Gender Information Value Date Recorded Sex Assigned at Not on file Legal Sex Female 5: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 Gender Identity Not on file Sexual Orientation Not on file documented as of this encounter Plan of Treatment Not on file documented as of this encounter Visit Diagnoses Diagnosis Unspecified essential hypertension- Primary Mitral valve disorder Mitral valve disorders 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
--- OUTSIDE RECORDS SUMMARY | 2025-08-14 06:28 | XMS_ITS | Encounter Summary ---
Author Organization [facility] Address [address] [place] [address] Care Team Providers Care Ebay Reseller Name Role Phone Rico Muñiz MD, Sharan Jaime Primary Care Provider Encounter Details Date Type Department Care Team (Latest Contact Info) Description 03/03/2002 Outpatient Historical [facility] Sharan Gómez Jr., MD [address] [place] [address] HYPERTENSION NOS (Primary Dx); ENDOCARDITIS NOS; AFTERCARE HALF-WAY ANTICOAG USE; FAMILY HX-DIABETES MELLITUS Social History Tobacco Use Types Packs/Day Years Used Date Smoking Tobacco: Never Assessed Comments Unknown Sex and Gender Information Value Date Recorded Sex Assigned at Not on file Legal Sex Female 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 Gender Identity Not on file Sexual Orientation Not on file documented as of this encounter Plan of Treatment Not on file documented as of this encounter Visit Diagnoses Diagnosis Unspecified essential hypertension- Primary Endocarditis, valve unspecified, unspecified cause MCC (current) use of anticoagulants Long-term (current) use of anticoagulants Family history of diabetes mellitus documented in this encounter Care Teams Ebay Reseller Relationship Specialty Start Date End Date Sharan Gómez Jr., MD [address] [place] [phone] PCP - General 08/10/05 documented as of this encounter
--- OUTSIDE RECORDS SUMMARY | 2025-08-14 06:28 | XMS_ITS | Encounter Summary ---
Author Organization [facility] Address [address] [place] [address] Care Team Providers Care Creosoting Engineer Name Role Phone Rico Muñiz MD, Sharan Jaime Primary Care Provider Encounter Details Date Type Department Care Team (Latest Contact Info) Description 06/24/2001 Outpatient Historical [facility] Int Luis [facility]aisal [facility] [place] [address] [place] [phone] Serge Arrington MD [address] [place] [address] Mitral valve disorder (Primary Dx); Unspecified essential hypertension; Other and unspecified hyperlipidemia; Dizziness and giddiness Social History Tobacco Use Types Packs/Day Years Used Date Smoking Tobacco: Never Assessed Comments Unknown Sex and Gender Information Value Date Recorded Sex Assigned at Not on file Legal Sex Female 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
--- OUTSIDE RECORDS SUMMARY | 2025-08-14 06:28 | XMS_ITS | Encounter Summary ---
Author Organization [facility] Address [address] [place] [address] Care Team Providers Care De Ionizer Operator Name Role Phone Rico Muñiz MD, Sharan Jaime Primary Care Provider Encounter Details Date Type Department Care Team (Latest Contact Info) Description 06/24/2002 Outpatient Historical [facility] [place] [address] [place] [address] Serge Arrington MD [address] [place] [address] Mitral valve disorder (Primary Dx); [...] Coronary atherosclerosis of unspecified type of vessel, cold springs or graft Unspecified essential hypertension Other and unspecified hyperlipidemia documented in this encounter Care Teams De Ionizer Operator Relationship Specialty Start Date End Date Sharan Gómez Jr., MD [address] [place] [address] PCP - General 08/10/05 documented as of this encounter
--- OUTSIDE RECORDS SUMMARY | 2025-08-14 06:28 | XMS_ITS | Encounter Summary ---
Author Organization [facility] Address [address] [place] [address] Care Team Providers Care Belt Loop Machine Operator Name Role Phone Rico Muñiz MD, Sharan Jaime Primary Care Provider Encounter Details Date Type Department Care Team (Latest Contact Info) Description 10/15/1998 Outpatient Historical [facility] Sharan Gómez Jr., MD [address] [place] [address] Unspecified essential hypertension (Primary Dx); Hypopotassemia; longterm (current) use of anticoagulants Social History Tobacco Use Types Packs/Day Years Used Date Smoking Tobacco: Never Assessed Comments Unknown Sex and Gender Information Value Date Recorded Sex Assigned at Not on file Legal Sex Female 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
--- OUTSIDE RECORDS SUMMARY | 2025-08-14 06:28 | XMS_ITS | Encounter Summary ---
Author Organization [facility] Address [address] [place] [address] Care Team Providers Care Helper Teacher Name Role Phone Rico Muñiz MD, Sharan Jaime Primary Care Provider Encounter Details Date Type Department Care Team (Latest Contact Info) Description 05/16/2001 Outpatient Historical [facility] Sharan Gómez Jr., MD [address] [place] [address] Unspecified essential hypertension (Primary Dx); M[facility] (current) use of anticoagulants Social History Tobacco Use Types Packs/Day Years Used Date Smoking Tobacco: Never Assessed Comments Unknown Sex and Gender Information Value Date Recorded Sex Assigned at Not on file Legal Sex Female 5:42 AM PALLIATIVE CARE NURSE Gender Identity Not on file Sexual Orientation Not on file documented as of this encounter Plan of Treatment Not on file documented as of this encounter Visit Diagnoses Diagnosis Unspecified essential hypertension- Primary MCC (current) use of anticoagulants Long-term (current) use of anticoagulants documented in this encounter Care Teams Helper Teacher Relationship Specialty Start Date End Date Sharan Gómez Jr., MD [address] [place] [address] PCP - General 08/10/05 documented as of this encounter
--- OUTSIDE RECORDS SUMMARY | 2025-08-14 06:28 | XMS_ITS | Encounter Summary ---
Author Organization [facility] Address [address] [facility] Attn: [place] [address] Care Team Providers Care Clinical Biochemical Geneticist Name Role Phone Rico Muñiz MD, Sharan Jaime Primary Care Provider Encounter Details Date Type Department Care Team (Late st Contact Info) Description 11/09/2000 Outpatient Historical Sharan Gómez Jr., MD [address] [place] [address] Social History Tobacco Use Types Packs/Day Years Used Date Smoking Tobacco: Never Assessed Comments Unknown Sex and Gender Information Value Date Recorded Sex Assigned at Not on file Legal Sex Female 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
--- OUTSIDE RECORDS SUMMARY | 2025-08-14 06:28 | XMS_ITS | Encounter Summary ---
Author Organization [facility] Address [address] [place] [address] Care Team Providers Care Jet Blade Polisher Name Role Phone Rico Muñiz MD, Sharan Jaime Primary Care Provider Encounter Details Date Type Department Care Team (Latest Contact Info) Description 12/20/2001 Outpatient Historical [facility] Sharan Gómez Jr., MD [address] [place] [address] WHEEZING (Primary Dx); HEART VALVE REPLAC NEC; AFTERCARE RETIREMENT ANTICOAG USE Social History Tobacco Use Types Packs/Day Years Used Date Smoking Tobacco: Never Assessed Comments Unknown Sex and Gender Information Value Date Recorded Sex Assigned at Not on file Legal Sex Female 5:42 AM GROUP PRACTICE PEDIATRICIAN Gender Identity Not on file Sexual Orientation Not on file documented as of this encounter Plan of Treatment Not on file documented as of this encounter Visit Diagnoses Diagnosis Wheezing- Primary Heart valve replaced by other means MCC (current) use of anticoagulants Long-term (current) use of anticoagulants documented in this encounter Care Teams Jet Blade Polisher Relationship Specialty Start Date End Date Sharan Gómez Jr., MD [address] [facility] [place] [address] PCP - General 08/10/05 documented as of this encounter
--- OUTSIDE RECORDS SUMMARY | 2025-08-14 06:28 | XMS_ITS | Encounter Summary ---
Author Organization [facility] Address [address] [facility] Attn: [place] [address] Care Team Providers Care Upset Welding Machine Operator Name Role Phone Rico Muñiz MD, Sharan Jaime Primary Care Provider Encounter Details Date Type Department Care Team (Late st Contact Info) Description 07/23/2002 Outpatient Historical Екатерина Malone MD [address] [place] [address] Social History Tobacco Use Types Packs/Day Years Used Date Smoking Tobacco: Never Assessed Comments Unknown Sex and Gender Information Value Date Recorded Sex Assigned at Not on file Legal Sex Female 5:42 AM ETCHER APPRENTICE PHOTOENGRAVING Gender Identity Not on file Sexual Orientation Not on file documented as of this encounter Plan of Treatment Not on file documented as of this encounter Visit Diagnoses Not on filedocumented in this encounter Care Teams Upset Welding Machine Operator Relationship Specialty Start Date End Date Sharan Gómez Jr., MD [address] [place] [address] PCP - General 08/10/05 documented as of this encounter
--- OUTSIDE RECORDS SUMMARY | 2025-08-14 06:28 | XMS_ITS | Encounter Summary ---
Author Organization [facility] Address [address] [place] [address] Care Team Providers Care Automotive Light Mechanic Name Role Phone Rico Muñiz MD, Sharan Jaime Primary Care Provider Encounter Details Date Type Department Care Team (Latest Contact Info) Description 11/05/2006 Outpatient Historical [facility] Int Luis AFaisal Lopez [place] [address] [place] [address] Serge Arrington MD [address] [place] [address] Mitral Valve Disorder (Primary Dx); Unspecified Essential Hypertension; Other and Unspecified Hyperlipidemia Social History Tobacco Use Types Packs/Day Years Used Date Smoking Tobacco: Never Assessed Comments Unknown Sex and Gender Information Value Date Recorded Sex Assigned at Not on file Legal Sex Female 5:42 AM WEIGHTER Gender Identity Not on file Sexual Orientation Not on file documented as of this encounter Plan of Treatment Not on file documented as of this encounter Visit Diagnoses Diagnosis Mitral valve disorder- Primary Mitral valve disorders Unspecified essential hypertension Other and unspecified hyperlipidemia documented in this encounter Care Teams Automotive Light Mechanic Relationship Specialty Start Date End Date Sharan Gómez Jr., MD [address] [place] [address] PCP - General 08/10/05 documented as of this encounter
--- OUTSIDE RECORDS SUMMARY | 2025-08-14 06:28 | XMS_ITS | Encounter Summary ---
Author Organization [facility] Address [address] [facility] Attn: Epic Prelude ADT [place] [address] Care Team Providers Care Pedorthist Name Role Phone Rico Muñiz MD, Sharan [...] on file Legal Sex Female 5:42 AM ELECTRICAL INSPECTOR Gender Identity Not on file Sexual Orientation Not on file documented as of this encounter Plan of Treatment Not on file documented as of this encounter Visit Diagnoses Not on filedocumented in this encounter Care Teams Pedorthist Relationship Specialty Start Date End Date Sharan Gómez Jr., MD [address] [place] [address] PCP - General 08/10/05 documented as of this encounter
--- OUTSIDE RECORDS SUMMARY | 2025-08-14 06:28 | XMS_ITS | Encounter Summary ---
Author Organization [facility] Address [address] [place] [address] Care Team Providers Care Emergency Communications Dispatcher Name Role Phone Rico Muñiz MD, Sharan Jaime Primary Care Provider Encounter Details Date Type Department Care Team (Latest Contact Info) Description 07/04/2005 Outpatient Historical [facility] Int Luis AFaisal Lopez [place] [address] [place] [address] Serge Arrington MD [address] [place] [address] Mitral valve disorder (Primary Dx); HYPERTENSION NOS; ABN FIND-STOOL CONTENTS-OCC BLOOD; SCREENING MAL NEOP-CERVIX Social History Tobacco Use Types Packs/Day Years Used Date Smoking Tobacco: Never Assessed Comments Unknown Sex and Gender Information Value Date Recorded Sex Assigned at Not on file Legal 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
--- OUTSIDE RECORDS SUMMARY | 2025-08-14 06:28 | XMS_ITS | Encounter Summary ---
Author Organization [facility] Address [address] [place] [address] Care Team Providers Care Tax Agent Name Role Phone Rico Muñiz MD, Sharan Jaime Primary Care Provider Encounter Details Date Type Department Care Team (Latest Contact Info) Description 02/25/1999 Outpatient Historical [facility] Sharan Gómez Jr., MD [address] [place] [address] Dietary surveil/intellectual property counsel (Primary Dx) Social History Tobacco Use Types Packs/Day Years Used Date Smoking Tobacco: Never Assessed Comments Unknown Sex and Gender Information Value Date Recorded Sex Assigned at Not on file Legal Sex Female 5:42 AM 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
--- OUTSIDE RECORDS SUMMARY | 2025-08-14 06:28 | XMS_ITS | Encounter Summary ---
Author Organization [facility] Address [address] [place] [address] Care Team Providers Care Bomb Squad Commander Name Role Phone Rico Muñiz MD, Sharan Jaime Primary Care Provider Encounter Details Date Type Department Care Team (Latest Contact Info) Description 07/06/2006 Outpatient Historical [facility] [address] [place] [address] Jennifer Cash MD NO ADDRESS ON FILE Unspecified Essential Hypertension (Primary Dx); Other and Unspecified Hyperlipidemia; Hypercalcemia; Routine Medical Exam Social History Tobacco Use Types Packs/Day Years Used Date Smoking Tobacco: Never Assessed Comments Unknown Sex and Gender Information Value Date Recorded Sex Assigned at Not on file Legal Sex Female 5:42 AM ABRASIVE GRADER Gender Identity Not on file Sexual Orientation Not on file documented as of this encounter Plan of Treatment Not on file documented as of this encounter Visit Diagnoses Diagnosis Unspecified essential hypertension- Primary Other and unspecified hyperlipidemia Hypercalcemia Routine medical exam Routine general medical examination at a health care facility documented in this encounter Care Teams Bomb Squad Commander Relationship Specialty Start Date End Date Sharan Gómez Jr., MD [address] [place] [address] PCP - General 08/10/05 documented as of this encounter
--- OUTSIDE RECORDS SUMMARY | 2025-08-14 06:28 | XMS_ITS | Encounter Summary ---
Author Organization [facility] Address [address] [place] [address] Care Team Providers Care Chemical Process Engineer Name Role Phone Rico Muñiz MD, Sharan Jaime Primary Care Provider Encounter Details Date Type Department Care Team (Latest Contact Info) Description 01/03/2002 Outpatient Historical [facility] Sharan Gómez Jr., MD [address] [place] [address] FLU W RESP MANIFEST NEC (Primary Dx); AFTERCARE SENIOR CARE ANTICOAG USE Social History Tobacco Use Types Packs/Day Years Used Date Smoking Tobacco: Never Assessed Comments Unknown Sex and Gender Information Value Date Recorded Sex Assigned at Not on file Legal Sex Female 5:42 AM CASE MANAGEMENT SPECIALIST Gender Identity Not on file Sexual Orientation Not on file documented as of this encounter Plan of Treatment Not on file documented as of this encounter Visit Diagnoses Diagnosis Influenza with other respiratory manifestations- Primary skilled nursing (current) use of anticoagulants Long-term (current) use of anticoagulants documented in this encounter Care Teams Chemical Process Engineer Relationship Specialty Start Date End Date Sharan Gómez Jr., MD [address] [place] [address] PCP - General 08/10/05 documented as of this encounter
--- OUTSIDE RECORDS SUMMARY | 2025-08-14 06:28 | XMS_ITS | Encounter Summary ---
Author Organization [facility] Address [address] [place] [address] Care Team Providers Care Gas Turbine Powerplant Mechanic Name Role Phone Rico Muñiz MD, Sharan Jaime Primary Care Provider Encounter Details Date Type Department Care Team (Latest Contact Info) Description 07/15/2002 Outpatient Historical [facility] Rafael Lopez Michelle [address] [place] [address] Patrick Olsen MD NO ADDRESS ON FILE POSTMENOPAUSAL BLEEDING (Primary Dx); DYSPAREUNIA; SCREENING MAL NEOP-CERVIX Social History Tobacco Use Types Packs/Day Years Used Date Smoking Tobacco: Never Assessed Comments Unknown Sex and Gender Information Value Date Recorded Sex Assigned at Not on file Legal Sex Female 5:42 AM SPRAY II PAINTER Gender Identity Not on file Sexual Orientation Not on file documented as of this encounter Plan of Treatment Not on file documented as of this encounter Visit Diagnoses Diagnosis Postmenopausal bleeding- Primary Dyspareunia Screening for malignant neoplasm of the cervix documented in this encounter Care Teams Gas Turbine Powerplant Mechanic Relationship Specialty Start Date End Date Sharan Gómez Jr., MD [address] [place] [address] PCP - General 08/10/05 documented as of this encounter
--- OUTSIDE RECORDS SUMMARY | 2025-08-14 06:28 | XMS_ITS | Encounter Summary ---
Author Organization [facility] Address [address] [place] [address] Care Team Providers Care Clerical Adjuster Name Role Phone Rico Muñiz MD, Sharan Jaime Primary Care Provider Encounter Details Date Type Department Care Team (Latest Contact Info) Description 11/04/1998 Outpatient Historical [facility] Sharan Gómez Jr., MD [address] [place] [address] Acute upper respiratory infections of unspecified site (Primary Dx); Screening for other and unspecified respiratory condition; Other dyspnea and respiratory abnormality; terminal block assembler (current) use of anticoagulants Social History Tobacco Use Types Packs/Day Years Used Date Smoking Tobacco: Never Assessed Comments Unknown Sex and Gender Information Value Date Recorded Sex Assigned at Not on file Legal Sex Female 5:42 AM LINK TRAINER MECHANIC Gender Identity Not on file Sexual Orientation Not on file documented as of this encounter Plan of Treatment Not on file documented as of this encounter Visit Diagnoses Diagnosis Acute upper respiratory infections of unspecified site- Primary Screening for other and unspecified respiratory condition Other dyspnea and respiratory abnormality correction (current) use of anticoagulants Long-term (current) use of anticoagulants documented in this encounter Care Teams Clerical Adjuster Relationship Specialty Start Date End Date Sharan Gómez Jr., MD [address] [place] [address] PCP - General 08/10/05 documented as of this encounter
--- OUTSIDE RECORDS SUMMARY | 2025-08-14 06:28 | XMS_ITS | Encounter Summary ---
Author Organization [facility] Address [address] [place] [address] Care Team Providers Care Communication Specialist Name Role Phone Rico Muñiz MD, Sharan Jaime Primary Care Provider Encounter Details Date Type Department Care Team (Late st Contact Info) Description 06/24/2001 Outpatient Historical [facility] Serge Arrington MD [address] [facility] [address] [place] [phone] Unspecified essential hypertension (Primary Dx); Other and unspecified hyperlipidemia Social History Tobacco Use Types Packs/Day Years Used Date Smoking Tobacco: Never Assessed Comments Unknown Sex and Gender Information Value Date Recorded Sex Assigned at Not on file Legal Sex Female 5:42 AM WHIZZER OPERATOR Gender Identity Not on file Sexual Orientation Not on file documented as of this encounter Plan of Treatment Not on file documented as of this encounter Visit Diagnoses Diagnosis Unspecified essential hypertension- Primary Other and unspecified hyperlipidemia documented in this encounter Care Teams Communication Specialist Relationship Specialty Start Date End Date Sharan Gómez Jr., MD [address] [place] [address] PCP - General 08/10/05 documented as of this encounter
--- OUTSIDE RECORDS SUMMARY | 2025-08-14 06:28 | XMS_ITS | Encounter Summary ---
Author Organization [facility] Address [address] [place] [address] Care Team Providers Care Neon Tube Pumper Name Role Phone Rico Muñiz MD, Sharan Jaime Primary Care Provider Encounter Details Date Type Department Care Team (Latest Contact Info) Description 11/09/2000 Outpatient Historical [facility] Sharan Gómez Jr., MD [address] [place] [address] Unspecified essential hypertension (Primary Dx); Pure hypercholesterolem; Endocarditis, valve unspecified, unspecified cause; half-way (current) use of anticoagulants Social History Tobacco Use Types Packs/Day Years Used Date Smoking Tobacco: Never Assessed Comments Unknown Sex and Gender Information Value Date Recorded Sex Assigned at Not on file Legal Sex Female 5:42 AM FLY WORKER Gender Identity Not on file Sexual Orientation Not on file documented as of this encounter Plan of Treatment Not on file documented as of this encounter Visit Diagnoses Diagnosis Unspecified essential hypertension- Primary Pure hypercholesterolem Pure hypercholesterolemia Endocarditis, valve unspecified, unspecified cause 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
--- OUTSIDE RECORDS SUMMARY | 2025-08-14 06:28 | XMS_ITS | Encounter Summary ---
Author Organization [facility] Address [address] [place] [address] Care Team Providers Care Commercial Lines Account Manager Name Role Phone Rico Muñiz MD, Sharan Jaime Primary Care Provider Encounter Details Date Type Department Care Team (Latest Contact Info) Description 01/14/1999 Outpatient Historical [facility] Sharan Gómez Jr., MD [address] [place] [address] Spasm of muscle (Primary Dx) Social History Tobacco Use Types Packs/Day Years Used Date Smoking Tobacco: Never Assessed Comments Unknown Sex and Gender Information Value Date Recorded Sex Assigned at Not on file Legal Sex Female 5:42 AM TMR TEACHER Gender Identity Not on file Sexual Orientation Not on file documented as of this encounter Plan of Treatment Not on file documented as of this encounter Visit Diagnoses Diagnosis Spasm of muscle- Primary documented in this encounter Care Teams Commercial Lines Account Manager Relationship Specialty Start Date End Date Sharan Gómez Jr., MD [address] [place] [address] PCP - General 08/10/05 documented as of this encounter
--- OUTSIDE RECORDS SUMMARY | 2025-08-14 06:28 | XMS_ITS | Encounter Summary ---
Author Organization [facility] Address [address] [facility] [address] Attn: [place] [address] Care Team Providers Care Continuing Education Dean Name Role Phone Rico Muñiz MD, Sharan Jaime Primary Care Provider Encounter Details Date Type Department Care Team (Late st Contact Info) Description 05/16/2001 Outpatient Historical Sharan Gómez Jr., MD [address] [place] [address] Social History Tobacco Use Types Packs/Day Years Used Date Smoking Tobacco: Never Assessed Comments Unknown Sex and Gender Information Value Date Recorded Sex Assigned at Not on file Legal Sex Female 5:42 AM AUCTION CLERK Gender Identity Not on file Sexual Orientation Not on file documented as of this encounter Plan of Treatment Not on file documented as of this encounter Visit Diagnoses Not on filedocumented in this encounter Care Teams Continuing Education Dean Relationship Specialty Start Date End Date Sharan Gómez Jr., MD [address] [place] [address] PCP - General 08/10/05 documented as of this encounter
--- OUTSIDE RECORDS SUMMARY | 2025-08-14 06:28 | XMS_ITS | Encounter Summary ---
Author Organization [facility] Address [address] [place] [address] Care Team Providers Care Coal Equipment Operator Name Role Phone Rico Muñiz MD, Sharan Jaime Primary Care Provider Encounter Details Date Type Department Care Team (Latest Contact Info) Description 12/13/1998 Outpatient Historical [facility] Sharan Gómez Jr., MD [address] [place] [address] Acute upper respiratory infections of unspecified site (Primary Dx); terminologist (current) use of anticoagulants Social History Tobacco Use Types Packs/Day Years Used Date Smoking Tobacco: Never Assessed Comments Unknown Sex and Gender Information Value Date Recorded Sex Assigned at Not on file Legal Sex Female 5:42 AM SOUND RECORDING TECHNICIAN Gender Identity Not on file Sexual Orientation Not on file documented as of this encounter Plan of Treatment Not on file documented as of this encounter Visit Diagnoses Diagnosis Acute upper respiratory infections of unspecified site- Primary terminologist (current) use of anticoagulants Long-term (current) use of anticoagulants documented in this encounter Care Teams Coal Equipment Operator Relationship Specialty Start Date End Date Sharan Gómez Jr., MD [address] [place] [address] PCP - General 08/10/05 documented as of this encounter
--- OUTSIDE RECORDS SUMMARY | 2025-08-14 06:28 | XMS_ITS | Encounter Summary ---
Author Organization [facility] Address [address] [place] [address] Care Team Providers Care Lighting Engineer Name Role Phone Rico Muñiz MD, Sharan Jaime Primary Care Provider Encounter Details Date Type Department Care Team (Latest Contact Info) Description 04/07/2002 Outpatient Historical [facility] Sharna Gómez Jr., MD [address] [place] [address] ENDOCARDITIS NOS (Primary Dx); DIABETES UNCOMPL ADULT-TYPE II (CMS/HCC); HYPERTENSION NOS; AFTERCARE [facility] ANTICOAG USE Social History Tobacco Use Types Packs/Day Years Used Date Smoking Tobacco: Never Assessed Comments Unknown Sex and Gender Information Value Date Recorded Sex Assigned at Not on file Legal Sex Female 5:42 AM TECHNOLOGY TRAINING ASSOCIATE Gender Identity Not on file Sexual Orientation Not on file documented as of this encounter Plan of Treatment Not on file documented as of this encounter Visit Diagnoses Diagnosis Endocarditis, valve unspecified, unspecified cause- Primary Type II or unspecified type diabetes mellitus without mention of complication, not stated as uncontrolled Unspecified essential hypertension detention (current) use of anticoagulants Long-term (current) use of anticoagulants documented in this encounter Care Teams Lighting Engineer Relationship Specialty Start Date End Date Sharan Gómez Jr., MD [address] [place] [address] PCP - General 08/10/05 documented as of this encounter
--- OUTSIDE RECORDS SUMMARY | 2025-08-14 06:28 | XMS_ITS | Encounter Summary ---
Author Organization [facility] Address [address] [place] [address] Care Team Providers Care Reconciliation Manager Name Role Phone Rico Muñiz MD, Sharan Jaime Primary Care Provider Encounter Details Date Type Department Care Team (Latest Contact Info) Description 08/06/2006 Outpatient Historical [facility] Int Luis [facility]aisal [facility] [address] [place] [address] Serge Arrington MD [address] [place] [address] Routine Gynecological Examination (Primary Dx) Social History Tobacco Use Types Packs/Day Years Used Date Smoking Tobacco: Never Assessed Comments Unknown Sex and Gender Information Value Date Recorded Sex Assigned at Not on file Legal Sex Female 5:42 AM FLOUR BROKER Gender Identity Not on file Sexual Orientation Not on file documented as of this encounter Plan of Treatment Not on file documented as of this encounter Visit Diagnoses Diagnosis Routine gynecological examination- Primary documented in this encounter Care Teams Reconciliation Manager Relationship Specialty Start Date End Date Sharan Gómez Jr., MD [address] [place] [address] PCP - General 08/10/05 documented as of this encounter
--- OUTSIDE RECORDS SUMMARY | 2025-08-14 06:28 | XMS_ITS | Encounter Summary ---
Author Organization [facility] Address [address] [place] [address] Care Team Providers Care Assistant Tennis Professional Name Role Phone Rico Muñiz MD, Sharan Jaime Primary Care Provider Encounter Details Date Type Department Care Team (Latest Contact Info) Description 08/16/2000 Outpatient Historical [facility] Sharan Gómez Jr., MD [address] [place] [address] Pure hypercholesterolem (Primary Dx); Unspecified [...] medications documented in this encounter Care Teams Assistant Tennis Professional Relationship Specialty Start Date End Date Sharan Gómez Jr., MD [address] [place] [address] PCP - General 08/10/05 documented as of this encounter
--- OUTSIDE RECORDS SUMMARY | 2025-08-14 06:28 | XMS_ITS | Encounter Summary ---
Author Organization [facility] Address [address] [place] [address] Care Team Providers Care Double Backer Name Role Phone Rico Muñiz MD, Sharan Jaime Primary Care Provider Encounter Details Date Type Department Care Team (Latest Contact Info) Description 06/26/2003 Outpatient Historical [facility] Michelle [address] [place] [address] Serge Arrington MD [address] [place] [address] HYPERTENSION NOS (Primary Dx); Routine medical exam Social History Tobacco Use Types Packs/Day Years Used Date Smoking Tobacco: Never Assessed Comments Unknown Sex and Gender Information Value Date Recorded Sex Assigned at Not on file Legal Sex Female 5:42 AM REGISTER CLERK Gender Identity Not on file Sexual Orientation Not on file documented as of this encounter Plan of Treatment Not on file documented as of this encounter Visit Diagnoses Diagnosis Unspecified essential hypertension- Primary Routine medical exam Routine general medical examination at a health care facility documented in this encounter Care Teams Double Backer Relationship Specialty Start Date End Date Sharan Gómez Jr., MD [address] [place] [address] PCP - General 08/10/05 documented as of this encounter
--- OUTSIDE RECORDS SUMMARY | 2025-08-14 06:28 | XMS_ITS | Encounter Summary ---
Author Organization [facility] Address [address] [facility] Attn: [place] [address] Care Team Providers Care Alterations Expert Name Role Phone Rico Muñiz MD, Sharan Jaime Primary Care Provider Encounter Details Date Type Department Care Team (Late st Contact Info) Description 08/16/2000 Outpatient Historical Sharan Gómez Jr., MD [address] [place] [address] Social History Tobacco Use Types Packs/Day Years Used Date Smoking Tobacco: Never Assessed Comments Unknown Sex and Gender Information Value Date Recorded Sex Assigned at Not on file Legal Sex Female 5:42 AM BUDDER Gender Identity Not on file Sexual Orientation Not on file documented as of this encounter Plan of Treatment Not on file documented as of this encounter Visit Diagnoses Not on filedocumented in this encounter Care Teams Alterations Expert Relationship Specialty Start Date End Date Sharan Gómez Jr., MD [address] [place] [address] PCP - General 08/10/05 documented as of this encounter
--- OUTSIDE RECORDS SUMMARY | 2025-08-14 06:28 | XMS_ITS | Encounter Summary ---
Author Organization [facility] Address [address] [place] [address] Care Team Providers Care Pencils Washer Name Role Phone Rico Muñiz MD, Sharan Jaime Primary Care Provider Encounter Details Date Type Department Care Team (Latest Contact Info) Description 06/28/2000 Outpatient Historical [facility] Sharan Gómez Jr., MD [address] [place] [address] Pure hypercholesterolem (Primary Dx); Hypopotassemia; Heart valve replaced by other means Social History Tobacco Use Types Packs/Day Years Used Date Smoking Tobacco: Never Assessed Comments Unknown Sex and Gender Information Value Date Recorded Sex Assigned at Not on file Legal Sex Female 5:42 AM BULL WHEEL WORKER Gender Identity Not on file Sexual Orientation Not on file documented as of this encounter Plan of Treatment Not on file documented as of this encounter Visit Diagnoses Diagnosis Pure hypercholesterolem- Primary Pure hypercholesterolemia Hypopotassemia Heart valve replaced by other means documented in this encounter Care Teams Pencils Washer Relationship Specialty Start Date End Date Sharan Gómez Jr., MD [address] [place] [address] PCP - General 08/10/05 documented as of this encounter
--- OUTSIDE RECORDS SUMMARY | 2025-08-14 06:28 | XMS_ITS | Encounter Summary ---
Author Organization [facility] Address [address] [place] [address] Care Team Providers Care Paste Worker Name Role Phone iRco Muñiz MD, Sharan aJime Primary Care Provider Encounter Details Date Type Department Care Team (Latest Contact Info) Description 10/01/2000 Outpatient Historical [facility] Sharan Gómez Jr., MD [address] [place] [address] Endocarditis, valve unspecified, unspecified cause (Primary Dx); Other and unspecified hyperlipidemia; Osteoarthrosis, unspecified whether generalized or localized, unspecified site Social History Tobacco Use Types Packs/Day Years Used Date Smoking Tobacco: Never Assessed Comments Unknown Sex and Gender Information Value Date Recorded Sex Assigned at Not on file Legal Sex Female 5:42 AM BEHAVIORIST Gender Identity Not on file Sexual Orientation Not on file documented as of this encounter Plan of Treatment Not on file documented as of this encounter Visit Diagnoses Diagnosis Endocarditis, valve unspecified, unspecified cause- Primary Other and unspecified hyperlipidemia Osteoarthrosis, unspecified whether generalized or localized, unspecified site documented in this encounter Care Teams Paste Worker Relationship Specialty Start Date End Date Sharan Gómez Jr., MD [address] [place] [address] PCP - General 08/10/05 documented as of this encounter
--- OUTSIDE RECORDS SUMMARY | 2025-08-14 06:28 | XMS_ITS | Encounter Summary ---
Author Organization [facility] Address [address] [place] [address] Care Team Providers Care Film Sound Coordinator Name Role Phone Rico Muñiz MD, Sharan Jaime Primary Care Provider Encounter Details Date Type Department Care Team (Latest Contact Info) Description 06/29/2004 Outpatient Historical [facility] Luis AFaisal [facility] [place] [place] [address] Serge Arrington MD [address] [place] [address] Mitral valve disorder (Primary Dx); HYPERTENSION NOS; HYPERLIPIDEMIA NEC/NOS; OSTEOPOROSIS NOS Social History Tobacco Use Types Packs/Day Years Used Date Smoking Tobacco: Never Assessed Comments Unknown Sex and Gender Information Value Date Recorded Sex Assigned at Not on file Legal Sex Female 5:42 AM SHREDDED FILLER MACHINE WRAPPER LAYER Gender Identity Not on file Sexual Orientation Not on file documented as of this encounter Plan of Treatment Not on file documented as of this encounter Visit Diagnoses Diagnosis Mitral valve disorder- Primary Mitral valve disorders Unspecified essential hypertension Other and unspecified hyperlipidemia Osteoporosis, unspecified documented in this encounter Care Teams Film Sound Coordinator Relationship Specialty Start Date End Date Sharan Gómez Jr., MD [address] [place] [address] PCP - General 08/10/05 documented as of this encounter
--- OUTSIDE RECORDS SUMMARY | 2025-08-14 06:28 | XMS_ITS | Encounter Summary ---
Author Organization [facility] Address [address] [place] [address] Care Team Providers Care Cutlery Grinder Name Role Phone Rico Muñiz MD, Sharan Jaime Primary Care Provider Encounter Details Date Type Department Care Team (Latest Contact Info) Description 03/09/2003 Outpatient Historical [facility] [address] [place] [address] Екатерина Malone MD [address] [place] [address] ABN BLOOD CHEMISTRY NEC (Primary Dx) Social History Tobacco Use Types Packs/Day Years Used Date Smoking Tobacco: Never Assessed Comments Unknown Sex and Gender Information Value Date Recorded Sex Assigned at Not on file Legal Sex Female 5:42 AM PIERCING 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 Gender Identity Not on file Sexual Orientation Not on file documented as of this encounter Plan of Treatment Not on file documented as of this encounter Visit Diagnoses Diagnosis Other abnormal blood chemistry- Primary documented in this encounter Care Teams Cutlery Grinder Relationship Specialty Start Date End Date Sharan Gómez Jr., MD [address] [place] [address] PCP - General 08/10/05 documented as of this encounter
--- OUTSIDE RECORDS SUMMARY | 2025-08-14 06:28 | XMS_ITS | Encounter Summary ---
Author Organization [facility] Address [address] [place] [address] Care Team Providers Care Brim Buster Name Role Phone Rico Muñiz MD, Sharan Jaime Primary Care Provider Encounter Details Date Type Department Care Team (Latest Contact Info) Description 12/21/2000 Outpatient Historical [facility] Sharan Gómez Jr., MD [address] [place] [address] Pure hypercholesterolem (Primary Dx); Other and unspecified hyperlipidemia; Esophageal reflux; intermediate manager (current) use of anticoagulants Social History Tobacco Use Types Packs/Day Years Used Date Smoking Tobacco: Never Assessed Comments Unknown Sex and Gender Information Value Date Recorded Sex Assigned at Not on file Legal Sex Female 5:42 AM ROPE COILING 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 Gender Identity Not on file Sexual Orientation Not on file documented as of this encounter Plan of Treatment Not on file documented as of this encounter Visit Diagnoses Diagnosis Pure hypercholesterolem- Primary Pure hypercholesterolemia Other and unspecified hyperlipidemia Esophageal reflux custodial (current) use of anticoagulants Long-term (current) use of anticoagulants documented in this encounter Care Teams Brim Buster Relationship Specialty Start Date End Date Sharan Gómez Jr., MD [address] [place] [address] PCP - General 08/10/05 documented as of this encounter
--- OUTSIDE RECORDS SUMMARY | 2025-08-14 06:29 | XMS_ITS | Encounter Summary ---
Author Organization [facility] Address [address] [place] [address] Care Team Providers Care Engineering Program Analyst Name Role Phone Rico Muñiz MD, Sharan Jaime Primary Care Provider Encounter Details Date Type Department Care Team (Latest Contact Info) Description 08/10/2005 Outpatient Historical [facility] Endoscopy Rebeca [address] [place] [address] Bill Negron MD [address] [place] [address] INT HEMORRHOID W/O COMPL (Primary Dx) Social History Tobacco Use Types Packs/Day Years Used Date Smoking Tobacco: Never Assessed Comments Unknown Sex and Gender Information Value Date Recorded Sex Assigned at Not on file Legal Sex Female 5:42 AM CHUTE LOADER Gender Identity Not on file Sexual [...] Primary documented in this encounter Care Teams Engineering Program Analyst Relationship Specialty Start Date End Date Sharan Gómez Jr., MD [address] [place] [address] PCP - General 08/10/05 documented as of this encounter
--- OUTSIDE RECORDS SUMMARY | 2025-08-14 06:29 | XMS_ITS | Encounter Summary ---
Author Organization [facility] Address [address] [place] [address] Care Team Providers Care Ophthalmic Medical Technician Name Role Phone Rico Muñiz MD, Sharan Jaime Primary Care Provider Encounter Details Date Type Department Care Team (Latest Contact Info) Description 08/10/2005 Outpatient Historical [facility] Gastroenterology- [place] [address] [facility] [address] [place] [address] Bill Negron MD [address] [place] [address] ABN FIND-STOOL CONTENTS-OCC BLOOD (Primary Dx); INT HEMORRHOID W/O COMPL; ANAL FISSURE Social History Tobacco Use Types Packs/Day Years Used Date Smoking Tobacco: Never Assessed Comments Unknown Sex and Gender Information Value Date Recorded Sex Assigned at Not on file Legal Sex Female 5:42 AM CONTRACTING MANAGER Gender Identity Not on file Sexual Orientation Not on file documented as of this encounter Plan of Treatment Not on file documented as of this encounter Visit Diagnoses Diagnosis Nonspecific abnormal finding in stool contents- Primary Internal hemorrhoids without mention of complication Anal fissure documented in this encounter Care Teams Ophthalmic Medical Technician Relationship Specialty Start Date End Date Sharan Gómez Jr., MD [address] [place] [address] PCP - General 08/10/05 documented as of this encounter
--- OUTSIDE RECORDS SUMMARY | 2025-08-14 06:29 | XMS_ITS | Encounter Summary ---
Author Organization [facility] Address [address] [place] [address] Care Team Providers Care Hi Teacher Name Role Phone Rico Muñiz MD, Sharan Jaime Primary Care Provider Encounter Details Date Type Department Care Team (Latest Contact Info) Description 07/18/1999 Outpatient Historical [facility] Sharan Gómez Jr., MD [address] [place] [address] Skin sensation disturb (Primary Dx); Headache(784.0); skilled nursing (current) use of anticoagulants Social History Tobacco Use Types Packs/Day Years Used Date Smoking Tobacco: Never Assessed Comments Unknown Sex and Gender Information Value Date Recorded Sex Assigned at Not on file Legal Sex Female 5:42 AM CREW SCHEDULER Gender Identity Not on file Sexual Orientation Not on file documented as of this encounter Plan of Treatment Not on file documented as of this encounter Visit Diagnoses Diagnosis Skin sensation disturb- Primary Disturbance of skin sensation Headache(784.0) Headache intermediate accountant (current) use of anticoagulants Long-term (current) use of anticoagulants documented in this encounter Care Teams Hi Teacher Relationship Specialty Start Date End Date Sharan Gómez Jr., MD [address] [place] [address] PCP - General 08/10/05 documented as of this encounter
--- OUTSIDE RECORDS SUMMARY | 2025-08-14 06:29 | XMS_ITS | Encounter Summary ---
Author Organization [facility] Address [address] [place] [address] Care Team Providers Care Coil Builder Name Role Phone Rico Muñiz MD, Sharan Jaime Primary Care Provider Encounter Details Date Type Department Care Team (Latest Contact Info) Description 01/30/2001 Outpatient Historical [facility] Sharan Gómez Jr., MD [address] [place] [address] Endocarditis, valve unspecified, unspecified cause (Primary Dx); Acute sinusitis, unspecified; Bronchitis, not specified as acute or chronic Social History Tobacco Use Types Packs/Day Years Used Date Smoking Tobacco: Never Assessed Comments Unknown Sex and Gender Information Value Date Recorded Sex Assigned at Not on file Legal Sex Female 5:42 AM STUDENT LIFE ADVISOR Gender Identity Not on file Sexual Orientation Not on file documented as of this encounter Plan of Treatment Not on file documented as of this encounter Visit Diagnoses Diagnosis Endocarditis, valve unspecified, unspecified cause- Primary Acute sinusitis, unspecified Bronchitis, not specified as acute or chronic documented in this encounter Care Teams Coil Builder Relationship Specialty Start Date End Date Sharan Gómez Jr., MD [address] [place] [phone] PCP - General 08/10/05 documented as of this encounter
--- OUTSIDE RECORDS SUMMARY | 2025-08-14 06:29 | XMS_ITS | Encounter Summary ---
Author Organization [facility] Address [address] [place] [address] Care Team Providers Care Palaeontologist Name Role Phone Rico Muñiz MD, Sharan Jaime Primary Care Provider Encounter Details Date Type Department Care Team (Latest Contact Info) Description 11/25/1999 Outpatient Historical [facility] Sharan Gómez Jr., MD [address] [place] [address] Epistaxis (Primary Dx); termite treater (current) use of anticoagulants Social History Tobacco Use Types Packs/Day Years Used Date Smoking Tobacco: Never Assessed Comments Unknown Sex and Gender Information Value Date Recorded Sex Assigned at Not on file Legal Sex Female 5:42 AM LETTERPRESS PRINTING MACHINIST Gender Identity Not on file Sexual Orientation Not on file documented as of this encounter Plan of Treatment Not on file documented as of this encounter Visit Diagnoses Diagnosis Epistaxis- Primary termite treater (current) use of anticoagulants Long-term (current) use of anticoagulants documented in this encounter Care Teams Palaeontologist Relationship Specialty Start Date End Date Sharan Gómez Jr., MD [address] [place] [address] PCP - General 08/10/05 documented as of this encounter
--- OUTSIDE RECORDS SUMMARY | 2025-08-14 06:29 | XMS_ITS | Encounter Summary ---
Author Organization [facility] Address [address] [facility] Attn: [place] [address] Care Team Providers Care Communications Clerk Name Role Phone Rico Muñiz MD, Sharan Jaime Primary Care Provider Encounter Details Date Type Department Care Team (Late st Contact Info) Description 02/15/2001 Outpatient Historical Sharan Gómez Jr., MD [address] [place] [address] Social History Tobacco Use Types Packs/Day Years Used Date Smoking Tobacco: Never Assessed Comments Unknown Sex and Gender Information Value Date Recorded Sex Assigned at Not on file Legal Sex Female 5:42 AM SENIOR UI WEB DEVELOPER Gender Identity Not on file Sexual Orientation Not on file documented as of this encounter Plan of Treatment Not on file documented as of this encounter Visit Diagnoses Not on filedocumented in this encounter Care Teams Communications Clerk Relationship Specialty Start Date End Date Sharan Gómez Jr., MD [address] [place] [address] PCP - General 08/10/05 documented as of this encounter
--- OUTSIDE RECORDS SUMMARY | 2025-08-14 06:29 | XMS_ITS | Clinical Summary ---
Author Organization [facility] Address [address] [place] [address] Phone Care Team Providers Care Brush Worker Name Role Phone Rico Muñiz MD, Sharan Jaime Primary Care Provider Immunizations Immunization Administration Dates Next Due (PNEUMOVAX 23)(50 YRS UP) PN EUMOCOCCAL POLYSACCHARIDE (PPV23) 0.5 ML, IM 06/26/2003 Social History Tobacco Use Types Packs/Day Years Used Date Smoking Tobacco: Never Assessed Comments Unknown Sex and Gender Information Value Date Recorded Sex Assigned at Not on file Legal Sex Female 5:42 AM TECHNICAL ACCOUNT REPRESENTATIVE Gender Identity Not on file Sexual [...] AND [place] Care Teams Brush Worker Relationship Specialty Start Date End Date Sharan Gómez Jr., MD [address] [place] [address] PCP - General 08/10/05
--- OUTSIDE RECORDS SUMMARY | 2025-08-14 06:29 | XMS_ITS | Encounter Summary ---
Author Organization [facility] Address [address] [place] [address] Care Team Providers Care Water Jet Loom Fixer Name Role Phone Rico Muñiz MD, Sharan Jaime Primary Care Provider Encounter Details Date Type Department Care Team (Latest Contact Info) Description 06/20/1999 Outpatient Historical [facility] Echocardiography - [facility] [address] [place] [address] X358 Serge Arrington MD [address] [address] Painful respiration (Primary Dx); Precordial pain; Other dyspnea and respiratory abnormality Social History Tobacco Use Types Packs/Day Years Used Date Smoking Tobacco: Never Assessed Comments Unknown Sex and Gender Information Value Date Recorded Sex Assigned at Not on file Legal Sex Female 5:42 AM PIPELINE OPERATOR Gender Identity Not on file Sexual Orientation Not on file documented as of this encounter Plan of Treatment Not on file documented as of this encounter Visit Diagnoses Diagnosis Painful respiration- Primary Precordial pain Other dyspnea and respiratory abnormality documented in this encounter Care Teams Water Jet Loom Fixer Relationship Specialty Start Date End Date Sharan Gómez Jr., MD [address] [place] [address] PCP - General 08/10/05 documented as of this encounter
--- OUTSIDE RECORDS SUMMARY | 2025-08-14 06:29 | XMS_ITS | Encounter Summary ---
Author Organization [facility] Address [address] [place] [address] Care Team Providers Care Relocation Director Name Role Phone Rico Muñiz MD, Sharan Jaime Primary Care Provider Encounter Details Date Type Department Care Team (Latest Contact Info) Description 04/12/2001 Outpatient Historical [facility] Sharan Gómez Jr., MD [address] [place] [address] Osteoarthrosis, unspecified whether generalized or localized, unspecified site (Primary Dx); Heart valve replaced by other means; MCC (current) use of anticoagulants Social History Tobacco Use Types Packs/Day Years Used Date Smoking Tobacco: Never Assessed Comments Unknown Sex and Gender Information Value Date Recorded Sex Assigned at Not on file Legal Sex Female 5:42 AM WOOL MIXER Gender Identity Not on file Sexual Orientation Not on file documented as of this encounter Plan of Treatment Not on file documented as of this encounter Visit Diagnoses Diagnosis Osteoarthrosis, unspecified whether generalized or localized, unspecified site- Primary Heart valve replaced by other means ad terminal makeup operator (current) use of anticoagulants Long-term (current) use of anticoagulants documented in this encounter Care Teams Relocation Director Relationship Specialty Start Date End Date Sharan Gómez Jr., MD [address] [place] [address] PCP - General 08/10/05 documented as of this encounter
--- OUTSIDE RECORDS SUMMARY | 2025-08-14 06:29 | XMS_ITS | Encounter Summary ---
Author Organization [facility] Address [address] [place] [address] Care Team Providers Care Combat Rifle Crewmember Name Role Phone Rico Muñiz MD, Sharan Jaime Primary Care Provider Encounter Details Date Type Department Care Team (Latest Contact Info) Description 04/18/1999 Outpatient Historical [facility] Sharan Gómez Jr., MD [address] [place] [address] Headache(784.0) (Primary Dx); Unspecified essential hypertension; predatory animal exterminator (current) use of anticoagulants Social History Tobacco Use Types Packs/Day Years Used Date Smoking Tobacco: Never Assessed Comments Unknown Sex and Gender Information Value Date Recorded Sex Assigned at Not on file Legal Sex Female 5:42 AM ACCOUNT UNDERWRITER Gender Identity Not on file Sexual Orientation Not on file documented as of this encounter Plan of Treatment Not on file documented as of this encounter Visit Diagnoses Diagnosis Headache(784.0)- Primary Headache Unspecified essential hypertension longterm (current) use of anticoagulants Long-term (current) use of anticoagulants documented in this encounter Care Teams Combat Rifle Crewmember Relationship Specialty Start Date End Date Sharan Gómez Jr., MD [address] [place] [address] PCP - General 08/10/05 documented as of this encounter
--- OUTSIDE RECORDS SUMMARY | 2025-08-14 06:29 | XMS_ITS | Encounter Summary ---
Author Organization [facility] Address [address] [place] [address] Care Team Providers Care Sulfonator Operator Name Role Phone Rico Muñiz MD, Sharan Jaime Primary Care Provider Encounter Details Date Type Department Care Team (Latest Contact Info) Description 12/26/1999 Outpatient Historical [facility] Sharan Gómez Jr., MD [address] [place] [address] ASCVD (Primary Dx); Esophageal reflux; Unspecified essential hypertension; longterm (current) use of anticoagulants Social History Tobacco Use Types Packs/Day Years Used Date Smoking Tobacco: Never Assessed Comments Unknown Sex and Gender Information Value Date Recorded Sex Assigned at Not on file Legal Sex Female 5:42 AM TEA BAG MACHINE TENDER Gender Identity Not on file Sexual Orientation Not on file documented as of this encounter Plan of Treatment Not on file documented as of this encounter Visit Diagnoses Diagnosis ASCVD- Primary Unspecified cardiovascular disease Esophageal reflux Unspecified essential hypertension longterm (current) use of anticoagulants Long-term (current) use of anticoagulants documented in this encounter Care Teams Sulfonator Operator Relationship Specialty Start Date End Date Sharan Gómez Jr., MD [address] [place] [address] PCP - General 08/10/05 documented as of this encounter
--- OUTSIDE RECORDS SUMMARY | 2025-08-14 06:29 | XMS_ITS | Encounter Summary ---
Author Organization [facility] Address [address] [facility] Attn: [place] [address] Care Team Providers Care International Student Advisor Name Role Phone Rico Muñiz MD, Sharan Jaime Primary Care Provider Encounter Details Date Type Department Care Team (Late st Contact Info) Description 05/24/2000 Outpatient Historical Sharan Gómez Jr., MD [address] [place] [address] Social History Tobacco Use Types Packs/Day Years Used Date Smoking Tobacco: Never Assessed Comments Unknown Sex and Gender Information Value Date Recorded Sex Assigned at Not on file Legal Sex Female 5:42 AM HEAVY EQUIPMENT FIELD MECHANIC Gender Identity Not on file Sexual Orientation Not on file documented as of this encounter Plan of Treatment Not on file documented as of this encounter Visit Diagnoses Not on filedocumented in this encounter Care Teams International Student Advisor Relationship Specialty Start Date End Date Sharan Gómez Jr., MD [address] [place] [address] PCP - General 08/10/05 documented as of this encounter
--- OUTSIDE RECORDS SUMMARY | 2025-08-14 06:29 | XMS_ITS | Encounter Summary ---
Author Organization [facility] Address [address] [place] [address] Care Team Providers Care Airborne Electronics Analyst Name Role Phone Rico Muñiz MD, Sharan Jaime Primary Care Provider Encounter Details Date Type Department Care Team (Latest Contact Info) Description 05/24/2000 Outpatient Historical [facility] Sharan Gómez Jr., MD [address] [place] [address] Unspecified essential hypertension (Primary Dx); Osteoporosis, unspecified Social History Tobacco Use Types Packs/Day Years Used Date Smoking Tobacco: Never Assessed Comments Unknown Sex and Gender Information Value Date Recorded Sex Assigned at Not on file Legal Sex Female 5:42 AM STIFF LEG OPERATOR Gender Identity Not on file Sexual Orientation Not on file documented as of this encounter Plan of Treatment Not on file documented as of this encounter Visit Diagnoses Diagnosis Unspecified essential hypertension- Primary Osteoporosis, unspecified documented in this encounter Care Teams Airborne Electronics Analyst Relationship Specialty Start Date End Date Sharan Gómez Jr., MD [address] [place] [address] PCP - General 08/10/05 documented as of this encounter
--- OUTSIDE RECORDS SUMMARY | 2025-08-14 06:29 | XMS_ITS | Encounter Summary ---
Author Organization [facility] Address [address] [place] [address] Care Team Providers Care Career Education Teacher Name Role Phone Rico Muñiz MD, Sharan Jaime Primary Care Provider Encounter Details Date Type Department Care Team (Late st Contact Info) Description 10/25/2020 Lab Requisition [facility] Laboratory Services [address] [place] [address] Paulina Peterson MD [address] [place] [address] Social History Tobacco Use Types Packs/Day Years Used Date Smoking Tobacco: Never Assessed Comments Unknown Sex and Gender Information Value Date Recorded Sex Assigned at Not on file Legal Sex Female 5:42 AM PACKERHEAD 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 Gender Identity Not on file Sexual Orientation Not on file documented as of this encounter Plan of Treatment Not on file documented as of this encounter Procedures Procedure Name Priority Date/Time Associated Diagnosis Comments PROTIME-INR Routine 10/25/2020 5:18 AM PACKERHEAD 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 documented in this encounter Results * (ABNORMAL) PROTIME-INR (10/25/2020 5:18 AM PACKERHEAD 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) PROTIME 34.3(H) 11.9 - 15.5 Seconds 10/25/2020 7:01 PM PACKERHEAD 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 [facility] INR 3.3(H) 0.8 - 1.2 10/25/2020 7:01 PM PACKERHEAD 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 [facility] Blood Collection / Unknown 10/25/2020 5:18 AM PACKERHEAD 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 10/25/2020 6:44 PM PACKERHEAD 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 Narrative [facility] - 10/25/2020 7:01 PM PACKERHEAD 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 Expected Values for INR: DVT/PE Goal INR 2.5; range 2.0 - 3.0 Valve Replacement Tissue Goal INR 2.5; range 2.0 - 3.0 Valve Replacement Mechanical Goal INR 3.0; range 2.5 - 3.5 POST-NC Goal INR 2.5; range 2.0 - 3.0 or Goal INR 3.0; range 2.5 - 3.5 Atrial Fibrillation Goal INR 2.5; range 2.0 - 3.0 Ischemic Stroke Goal INR 2.5; range 2.0 - 3.0 For additional information see Guidelines for Anticoagulation available from the pharmacy [facility] D. us Paulina Peterson MD HEMATOLOGY ORDERABLES Maame smart Result [facility] [address] [place] [address] documented in this encounter Visit Diagnoses Not on filedocumented in this encounter Care Teams Career Education Teacher Relationship Specialty Start Date End Date Sharan Gómez Jr., MD [address] [place] [address] PCP - General 08/10/05 documented as of this encounter
--- OUTSIDE RECORDS SUMMARY | 2025-08-14 06:29 | XMS_ITS | Encounter Summary ---
Author Organization [facility] Address [address] [place] [address] Care Team Providers Care Kelp Cutter Name Role Phone Rico Muñiz MD, Sharan Jaime Primary Care Provider Encounter Details Date Type Department Care Team (Late st Contact Info) Description 10/16/2020 Lab Requisition [facility] General Laboratory Services [place] [address] [place] [phone] Mtnv, External Provider [address] [facility] [address] [place] [address] Social History Tobacco Use Types Packs/Day Years Used Date Smoking Tobacco: Never Assessed Comments Unknown Sex and Gender Information Value Date Recorded Sex Assigned at Not on file Legal Sex Female 5:42 AM FOOD ANALYST Gender Identity Not on file Sexual Orientation Not on file documented as of this encounter Plan of Treatment Not on file documented as of this encounter Procedures Procedure Name Priority Date/Time Associated Diagnosis Comments PROTIME-INR Routine 10/16/2020 10:20 AM FOOD ANALYST documented in this encounter Results * (ABNORMAL) PROTIME-INR (10/16/2020 10:20 AM FOOD ANALYST) PROTIME 42.0(H) 12.0 - 14.4 Seconds 10/16/2020 12:05 PM FOOD ANALYST [facility] INR 4.7(H) 0.8 - 1.2 10/16/2020 12:05 PM FOOD ANALYST [facility] Blood 10/16/2020 10:2 0 AM FOOD ANALYST 10/16/2020 11:47 AM FOOD ANALYST us External Provider Mtnv HEMATOLOGY ORDERABLES Fin al Result [facility] CLIA # [id number] [address] [place] [address] documented in this encounter Visit Diagnoses Not on filedocumented in this encounter Care Teams Kelp Cutter Relationship Specialty Start Date End Date Sharan Gómez Jr., MD [address] [place] [address] PCP - General 08/10/05 documented as of this encounter
--- OUTSIDE RECORDS SUMMARY | 2025-08-14 06:29 | XMS_ITS | Encounter Summary ---
Author Organization [facility] Address [address] [place] [address] Care Team Providers Care Missileman Name Role Phone Rico Muñiz MD, Sharan Jaime Primary Care Provider Encounter Details Date Type Department Care Team (Late st Contact Info) Description 2020 Lab Requisition [facility] Laboratory Services [address] [place] [phone] Tabatha Lynn, [facility] [address] [place] [address] Social History Tobacco Use Types Packs/Day Years Used Date Smoking Tobacco: Never Assessed Comments Unknown Sex and Gender Information Value Date Recorded Sex Assigned at Not on file Legal Sex Female 5:42 AM QUALITY ASSURANCE MONITOR FINAL Gender Identity Not on file Sexual Orientation Not on file documented as of this encounter Plan of Treatment Not on file documented as of this encounter Procedures Procedure Name Priority Date/Time Associated Diagnosis Comments PROTIME-INR Routine 2020 6:14 AM QUALITY ASSURANCE MONITOR FINAL documented in this encounter Results * (ABNORMAL) PROTIME-INR (2020 6:14 AM QUALITY ASSURANCE MONITOR FINAL) PROTIME 23.0(H) 11.9 - 15.5 Seconds 2020 7:28 PM QUALITY ASSURANCE MONITOR FINAL [facility] INR 2.0(H) 0.8 - 1.2 2020 7:28 PM QUALITY ASSURANCE MONITOR FINAL [facility] Blood Collection / Unknown 2020 6:14 AM QUALITY ASSURANCE MONITOR FINAL 2020 7:05 PM QUALITY ASSURANCE MONITOR FINAL Narrative [facility] - 2020 7:28 PM QUALITY ASSURANCE MONITOR FINAL Expected Values for INR: DVT/PE Goal INR [...] pharmacy [facility], Pharm D. Tabatha Neff KNOT TYING OPERATOR HEMATOLOGY ORDERABLES Final Result Performing Organization Address City/State/[facility] Co de Phone Number [facility] [address] [place] [address] documented in this encounter Visit Diagnoses Not on filedocumented in this encounter Care Teams Missileman Relationship Specialty Start Date End Date Sharan Gómez Jr., MD [address] [place] [address] PCP - General 08/10/05 documented as of this encounter
--- OUTSIDE RECORDS SUMMARY | 2025-08-14 06:29 | XMS_ITS | Encounter Summary ---
Author Organization [facility] Address [address] [place] [address] Care Team Providers Care Director China Name Role Phone Rico Muñiz MD, Sharan Jaime Primary Care Provider Encounter Details Date Type Department Care Team (Latest Contact Info) Description 02/29/2000 Outpatient Historical [facility] Sharan Gómez Jr., MD [address] [place] [address] Pure hypercholesterolem (Primary Dx); Heart valve replaced by other means; Osteoporosis, unspecified; intermediate (current) use of anticoagulants Social History Tobacco Use Types Packs/Day Years Used Date Smoking Tobacco: Never Assessed Comments Unknown Sex and Gender Information Value Date Recorded Sex Assigned at Not on file Legal Sex Female 5:42 AM MARKETING SERVICES VICE PRESIDENT Gender Identity Not on file Sexual Orientation Not on file documented as of this encounter Plan of Treatment Not on file documented as of this encounter Visit Diagnoses Diagnosis Pure hypercholesterolem- Primary Pure hypercholesterolemia Heart valve replaced by other means Osteoporosis, unspecified intermediate (current) use of anticoagulants Long-term (current) use of anticoagulants documented in this encounter Care Teams Director China Relationship Specialty Start Date End Date Sharan Gómez Jr., MD [address] [place] [phone] PCP - General 08/10/05 documented as of this encounter
--- OUTSIDE RECORDS SUMMARY | 2025-08-14 06:29 | XMS_ITS | Encounter Summary ---
Author Organization [facility] Address [address] [place] [address] Care Team Providers Care Underground Drill Operator Name Role Phone Rico Muñiz MD, Sharan Jamie Primary Care Provider Encounter Details Date Type Department Care Team (Latest Contact Info) Description 01/25/2000 Outpatient Historical [facility] Sharan Gómez Jr., MD [address] [place] [address] Obesity, unspecified (Primary Dx); Heart valve replaced by other means; Unspecified essential hypertension; assisted (current) use of anticoagulants Social History Tobacco Use Types Packs/Day Years Used Date Smoking Tobacco: Never Assessed Comments Unknown Sex and Gender Information Value Date Recorded Sex Assigned at Not on file Legal Sex Female 5:42 AM COOK SPECIALTY FOREIGN FOOD Gender Identity Not on file Sexual Orientation Not on file documented as of this encounter Plan of Treatment Not on file documented as of this encounter Visit Diagnoses Diagnosis Obesity, unspecified- Primary Heart valve replaced by other means Unspecified essential hypertension assisted (current) use of anticoagulants Long-term (current) use of anticoagulants documented in this encounter Care Teams Underground Drill Operator Relationship Specialty Start Date End Date Sharan Gómez Jr., MD [address] [place] [phone] PCP - General 08/10/05 documented as of this encounter
--- OUTSIDE RECORDS SUMMARY | 2025-08-14 06:29 | XMS_ITS | Encounter Summary ---
Author Organization [facility] Address [address] [place] [address] Care Team Providers Care Ent Surgeon Name Role Phone Rico Muñiz MD, Sharan Jaime Primary Care Provider Encounter Details Date Type Department Care Team (Latest Contact Info) Description 10/10/1999 Outpatient Historical [facility] Sharan Gómez Jr., MD [address] [place] [address] Unspecified circulatory system disorder (Primary Dx); Unspecified essential hypertension; intermodal customer service (current) use of anticoagulants Social History Tobacco Use Types Packs/Day Years Used Date Smoking Tobacco: Never Assessed Comments Unknown Sex and Gender Information Value Date Recorded Sex Assigned at Not on file Legal Sex Female 5:42 AM CERAMIC COATER MACHINE Gender Identity Not on file Sexual Orientation Not on file documented as of this encounter Plan of Treatment Not on file documented as of this encounter Visit Diagnoses Diagnosis Unspecified circulatory system disorder- Primary Unspecified essential hypertension intermodal customer service (current) use of anticoagulants Long-term (current) use of anticoagulants documented in this encounter Care Teams Ent Surgeon Relationship Specialty Start Date End Date Sharan Gómez Jr., MD [address] [place] [phone] PCP - General 08/10/05 documented as of this encounter
--- OUTSIDE RECORDS SUMMARY | 2025-08-14 06:29 | XMS_ITS | Encounter Summary ---
Author Organization [facility] Address [address] [place] [address] Care Team Providers Care Manager Relationship Name Role Phone Rico Muñiz MD, Sharan Jaime Primary Care Provider Encounter Details Date Type Department Care Team (Latest Contact Info) Description 02/15/2001 Outpatient Historical [facility] Sharan Gómez Jr., MD [address] [place] [address] Unspecified essential hypertension (Primary Dx); Heart valve replaced by other means Social History Tobacco Use Types Packs/Day Years Used Date Smoking Tobacco: Never Assessed Comments Unknown Sex and Gender Information Value Date Recorded Sex Assigned at Not on file Legal Sex Female 5:42 AM ELECTRICAL ENGINEERING TEACHER Gender Identity Not on file Sexual Orientation Not on file documented as of this encounter Plan of Treatment Not on file documented as of this encounter Visit Diagnoses Diagnosis Unspecified essential hypertension- Primary Heart valve replaced by other means documented in this encounter Care Teams Manager Relationship Relationship Specialty Start Date End Date Sharan Gómez Jr., MD [address] [place] [phone] PCP - General 08/10/05 documented as of this encounter
--- OUTSIDE RECORDS SUMMARY | 2025-08-14 06:29 | XMS_ITS | Encounter Summary ---
Author Organization [facility] Address [address] [place] [address] Care Team Providers Care Brainer Name Role Phone Rico Muñiz MD, Sharan Jaime Primary Care Provider Encounter Details Date Type Department Care Team (Latest Contact Info) Description 06/21/2000 Outpatient Historical [facility] Int Luis AFaisal Lopez [place] [place] [address] Serge Arrington MD [address] [place] [address] Mitral valve disorder (Primary Dx); Unspecified essential hypertension; Unspecified gastritis and gastroduodenitis without mention of hemorrhage Social History Tobacco Use Types Packs/Day Years Used Date Smoking Tobacco: Never Assessed Comments Unknown Sex and Gender Information Value Date Recorded Sex Assigned at Not on file Legal Sex Female 5:42 AM MASTER PLUMBER Gender Identity Not on file Sexual Orientation Not on file documented as of this encounter Plan of Treatment Not on file documented as of this encounter Visit Diagnoses Diagnosis Mitral valve disorder- Primary Mitral valve disorders Unspecified essential hypertension Unspecified gastritis and gastroduodenitis without mention of hemorrhage documented in this encounter Care Teams Brainer Relationship Specialty Start Date End Date Sharan Gómez Jr., MD [address] [place] [address] PCP - General 08/10/05 documented as of this encounter
--- OUTSIDE RECORDS SUMMARY | 2025-08-14 06:29 | XMS_ITS | Encounter Summary ---
Author Organization [facility] Address [address] [place] [address] Care Team Providers Care Knockout Machine Operator Name Role Phone Rico Muiñz MD, Sharan Jaime Primary Care Provider Encounter Details Date Type Department Care Team (Latest Contact Info) Description 04/06/2000 Outpatient Historical [facility] Sharan Gómez Jr., MD [address] [place] [address] Symptomatic menopausal or female climacteric states (Primary Dx); Endocarditis, valve unspecified, unspecified cause; intermediate designer (current) use of anticoagulants Social History Tobacco Use Types Packs/Day Years Used Date Smoking Tobacco: Never Assessed Comments Unknown Sex and Gender Information Value Date Recorded Sex Assigned at Not on file Legal Sex Female 5:42 AM ADOPTION SOCIAL WORKER Gender Identity Not on file Sexual Orientation Not on file documented as of this encounter Plan of Treatment Not on file documented as of this encounter Visit Diagnoses Diagnosis Symptomatic menopausal or female climacteric states- Primary Endocarditis, valve unspecified, unspecified cause intermediate designer (current) use of anticoagulants Long-term (current) use of anticoagulants documented in this encounter Care Teams Knockout Machine Operator Relationship Specialty Start Date End Date Sharan Gómez Jr., MD [address] [place] [phone] PCP - General 08/10/05 documented as of this encounter
--- OUTSIDE RECORDS SUMMARY | 2025-08-14 06:29 | XMS_ITS | Encounter Summary ---
Author Organization [facility] Address [address] Attn: [place] [address] Care Team Providers Care Sql Server Developer Name Role Phone Rico Muñiz MD, Sharan Jaime Primary Care Provider Encounter Details Date Type Department Care Team (Late st Contact Info) Description 12/26/1999 Outpatient Historical Sharan Gómez Jr., MD [address] [place] [address] Social History Tobacco Use Types Packs/Day Years Used Date Smoking Tobacco: Never Assessed Comments Unknown Sex and Gender Information Value Date Recorded Sex Assigned at Not on file Legal Sex Female 5:42 AM SALES PROMOTION DIRECTOR Gender Identity Not on file Sexual Orientation Not on file documented as of this encounter Plan of Treatment Not on file documented as of this encounter Visit Diagnoses Not on filedocumented in this encounter Care Teams Sql Server Developer Relationship Specialty Start Date End Date Sharan Gómez Jr., MD [address] [place] [address] PCP - General 08/10/05 documented as of this encounter
--- OUTSIDE RECORDS SUMMARY | 2025-08-14 06:29 | XMS_ITS | Encounter Summary ---
Author Organization [facility] Address [address] [place] [address] Care Team Providers Care School Community Relations Coordinator Name Role Phone Rico Muñiz MD, Sharan Jaime Primary Care Provider Encounter Details Date Type Department Care Team (Latest Contact Info) Description 03/18/1999 Outpatient Historical [facility] Sharan Gómez Jr., MD [address] [place] [address] Endocarditis, valve unspecified, unspecified cause (Primary Dx); USP (current) use of anticoagulants Social History Tobacco Use Types Packs/Day Years Used Date Smoking Tobacco: Never Assessed Comments Unknown Sex and Gender Information Value Date Recorded Sex Assigned at Not on file Legal 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
--- OUTSIDE RECORDS SUMMARY | 2025-08-14 06:29 | XMS_ITS | Encounter Summary ---
Author Organization [facility] Address [address] [place] [address] Care Team Providers Care Autism Specialist Name Role Phone Rico Muñiz MD, Sharan Jaime Primary Care Provider Encounter Details Date Type Department Care Team (Latest Contact Info) Description 06/20/1999 Outpatient Historical [facility] Imaging Services-Faisal Lopez [address] [place] [address] Serge Arrington MD [address] [place] [address] Cough (Primary Dx) Social History Tobacco Use Types Packs/Day Years Used Date Smoking Tobacco: Never Assessed Comments Unknown Sex and Gender Information Value Date Recorded Sex Assigned at Not on file Legal 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
--- OUTSIDE RECORDS SUMMARY | 2025-08-14 06:29 | XMS_ITS | Encounter Summary ---
Author Organization [facility] Address [address] [place] [address] Care Team Providers Care Game Author Name Role Phone Rico Muñiz MD, Sharan Jaime Primary Care Provider Encounter Details Date Type Department Care Team (Latest Contact Info) Description 10/26/1999 Outpatient Historical [facility] Sharan Gómez Jr., MD [address] [place] [address] Endocarditis, valve unspecified, unspecified cause (Primary Dx); Osteoporosis, unspecified Social History Tobacco Use Types Packs/Day Years Used Date Smoking Tobacco: Never Assessed Comments Unknown Sex and Gender Information Value Date Recorded Sex Assigned at Not on file 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
--- OUTSIDE RECORDS SUMMARY | 2025-08-14 06:29 | XMS_ITS | Encounter Summary ---
Author Organization [facility] Address [address] [place] [address] Care Team Providers Care Paper Twister Name Role Phone Rico Muñiz MD, Sharan Jaime Primary Care Provider Encounter Details Date Type Department Care Team (Latest Contact Info) Description 06/20/1999 Outpatient Historical [facility] [place] [address] [place] [address] Serge Arrington MD [address] [place] [address] Mitral valve disorder (Primary Dx); Unspecified essential hypertension; Other and unspecified hyperlipidemia; Hematuria Social History Tobacco Use Types Packs/Day Years Used Date Smoking Tobacco: Never Assessed Comments Unknown Sex and Gender Information Value Date Recorded Sex Assigned at Not on file Legal 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
--- OUTSIDE RECORDS SUMMARY | 2025-08-14 06:29 | XMS_ITS | Encounter Summary ---
Author Organization [facility] Address [address] [place] [address] Care Team Providers Care Food Services Manager Name Role Phone Rico Muñiz MD, Sharan Jaime Primary Care Provider Encounter Details Date Type Department Care Team (Latest Contact Info) Description 05/18/1999 Outpatient Historical [facility] Sharan Gómez Jr., MD [address] [place] [address] Osteoarthrosis, unspecified whether generalized or localized, unspecified site (Primary Dx); FPC (current) use of anticoagulants; Heart valve replaced by other means Social History Tobacco Use Types Packs/Day Years Used Date Smoking Tobacco: Never Assessed Comments Unknown Sex and Gender Information Value Date Recorded Sex Assigned at Not on file Legal 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 Gender Identity Not on file Sexual Orientation Not on file documented as of this encounter Plan of Treatment Not on file documented as of this encounter Visit Diagnoses Diagnosis Osteoarthrosis, unspecified whether generalized or localized, unspecified site- Primary remote computer terminal operator (current) use of anticoagulants Long-term (current) use of anticoagulants Heart valve replaced by other means documented in this encounter Care Teams Food Services Manager Relationship Specialty Start Date End Date Sharan Gómez Jr., MD [address] [place] [phone] PCP - General 08/10/05 documented as of this encounter
--- OUTSIDE RECORDS SUMMARY | 2025-08-14 06:29 | XMS_ITS | Encounter Summary ---
Author Organization [facility] Address [address] [place] [address] Care Team Providers Care Press Tender Smoke Signal Name Role Phone Rico Muñiz MD, Sharan Jaime Primary Care Provider Encounter Details Date Type Department Care Team (Late st Contact Info) Description 10/18/2020 Lab Requisition [facility] Laboratory Services [address] [place] [address] Tabatha Lynn, 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 Gender Identity Not on file Sexual Orientation Not on file documented as of this encounter Plan of Treatment Not on file documented as of this encounter Procedures Procedure Name Priority Date/Time Associated Diagnosis Comments PROTIME-INR Routine 10/18/2020 6:34 AM TOLL TESTBOARD WORKER documented in this encounter Results * (ABNORMAL) PROTIME-INR (10/18/2020 6:34 AM TOLL TESTBOARD WORKER) PROTIME 34.1(H) 11.9 - 15.5 Seconds 10/18/2020 5:19 PM TOLL TESTBOARD WORKER [facility] INR 3.2(H) 0.8 - 1.2 10/18/2020 5:19 PM TOLL TESTBOARD WORKER [facility] Blood Collection / Unknown 10/18/2020 6:34 AM TOLL TESTBOARD WORKER 10/18/2020 4:57 PM TOLL TESTBOARD WORKER Narrative [facility] - 10/18/2020 5:19 PM TOLL TESTBOARD WORKER Expected Values for INR: DVT/PE Goal [...] pharmacy Aspen Mitchell, Pharm D. Tabatha Neff TOBACCO STRIPPER HAND HEMATOLOGY ORDERABLES Final Result [facility] [address] [place] [address] documented in this encounter Visit Diagnoses Not on filedocumented in this encounter Care Teams Press Tender Smoke Signal Relationship Specialty Start Date End Date Sharan Gómez Jr., MD [address] [place] [address] PCP - General 08/10/05 documented as of this encounter
--- OUTSIDE RECORDS SUMMARY | 2025-08-14 06:29 | XMS_ITS | Encounter Summary ---
Author Organization [facility] Address [address] [place] [address] Care Team Providers Care Meter Inspector Name Role Phone Rico Muñiz MD, Sharan Jaime Primary Care Provider Encounter Details Date Type Department Care Team (Late st Contact Info) Description 07/26/1999 Outpatient Historical [facility] Cardiology- Rebeca [address] [place] [phone] [place] [address] 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
--- OUTSIDE RECORDS SUMMARY | 2025-08-14 06:29 | XMS_ITS | Encounter Summary ---
Author Organization [facility] Address [address] [place] [address] Care Team Providers Care Welding Machine Operator Submerged Arc Name Role Phone Rico Muñiz MD, Sharan Jaime Primary Care Provider Encounter Details Date Type Department Care Team (Latest Contact Info) Description 04/01/1999 Outpatient Historical [facility] Sharan Gómez Jr., MD [address] [place] [address] Type II or unspecified type diabetes mellitus without mention of complication, not stated as uncontrolled (Primary Dx); Dietary surveil/family and marriage counsellor Social History Tobacco Use Types Packs/Day Years Used Date Smoking Tobacco: Never Assessed Comments Unknown Sex and Gender Information Value Date Recorded Sex Assigned at Not on file Legal Sex Female 5:42 AM KILN HAND Gender Identity Not on file Sexual Orientation Not on file documented as of this encounter Plan of Treatment Not on file documented as of this encounter Visit Diagnoses Diagnosis Type II or unspecified type diabetes mellitus without mention of complication, not stated as uncontrolled- Primary Dietary surveil/family and marriage counsellor Dietary surveillance and counseling documented in this encounter Care Teams Welding Machine Operator Submerged Arc Relationship Specialty Start Date End Date Sharan Gómez Jr., MD [address] [place] [address] PCP - General 08/10/05 documented as of this encounter
--- NOTE | 2025-08-14 06:31 | XRR_ITS ---
PROCEDURE INFORMATION: Exam: XR Chest Exam date and time: 08/14/2025 6:43 AM Age: 74 years old Clinical indication: Pain; Chest pressure; Prior surgery; Surgery date: 6+ months; Surgery type: Heart; Additional info: Chest pain TECHNIQUE: Imaging protocol: Radiologic exam of the chest. Views: 1 view. COMPARISON: CR (CHEST, ) 08/01/2025 11:29 PM FINDINGS: Lungs: Low lung volumes with similar interstitial prominence in the lung bases, [id number]-[id number]. No new airspace disease. Pleural spaces: Unremarkable. No pleural effusion. No pneumothorax. Heart/Mediastinum: Unremarkable. No cardiomegaly. Bones/joints: Median sternotomy. XR/XR chest 1V portable [id number] IMPRESSION: Low lung volumes with similar interstitial coarsening in the lung bases, [id number], which could represent atelectasis, mild edema, and/or atypical infection.
--- NOTE | 2025-08-14 06:31 | ECG_ITS ---
[facility] [employer] Test Date: 2025-08-14 Pat Name: Odilia Ulloa Department: Room: Gender: Female Tape Sewing Machine Operator: : 1950 Requested By: Juany Contreras Order Number: [id number] Epps MD: Souleymane Wood M.D. Measurements Intervals [place] Rate: 84 P: 0 AR: 0 QRS: 133 QRSD: 122 T: 148 QT: 397 QTc: 470 Interpretive Statements ATRIAL FIBRILLATION WITH ABERRANT CONDUCTION OR VENTRICULAR PREMATURE COMPLEXES POSSIBLE RIGHT VENTRICULAR CONDUCTION DELAY [RSR (QR) IN V1/V2] LEFT POSTERIOR FASCICULAR BLOCK [QRS AXIS > 109, INFERIOR Q] Compared to ECG 08/01/2025 23:11:32 Ventricular premature complex(es) now present Aberrant conduction of supraventricular beat(s) now present Left posterior fascicular block now present Electronically Signed On 08-15-2025 12:00:08 CDT by Souleymane Wood M.D. [email or web address]
[2025-08-14 06:32] VITALS: BP 113/75; PULSE 85; RESP 18; TEMP 36.8; O2SAT 93; BMI 28.5
--- NOTE | 2025-08-14 06:32 | W.ED.CHESTPA ---
HPI - Chest Pain General: Chief Complaint: Chest Pain Stated Complaint: Chest Pain Time Seen by Provider: 08/14/25 06:26 History of Present Illness: 74-year-old female with a history of chronic anticoagulation on Coumadin, mitral valve replacement, dementia, anemia, chronic kidney disease, hypertension, coronary artery disease, congestive heart failure, hypothyroidism, hyperlipidemia and atrial fibrillation who presents to the emergency room from assisted living by ambulance for chest pressure. She describes pressure in her central chest. No other complaints. No shortness of breath. No cough. No fever. No altered mental status. No focal motor deficits. No abdominal pain. No nausea or vomiting. Related Data Home Medications ?Medication ?Instructions ?Recorded ?Confirmed nitroglycerin 0.4 mg sublingual 0.4 mg sublingual Q5M PRN chest 11/07/19 08/06/25 tablet (Nitrostat) pains levothyroxine 75 mcg tablet 75 mcg PO DAILY@0700 hypothyroidism 11/11/20 08/06/25 (Euthyrox) tramadol 50 mg tablet 50 mg PO Q6H PRN Pain 11/11/20 08/06/25 potassium chloride 20 mEq 20 meq PO BID@0700,1900 12/22/20 08/06/25 tablet,extended release meclizine 12.5 mg tablet 12.5 mg PO Q6H PRN nausea and 04/19/21 08/06/25 vomiting bismuth subsalicylate 525 mg/15 mL 525 mg PO Q8H PRN 08/15/21 08/06/25 oral suspension (Pepto-Bismol Max Nausea/vomiting/diarrhea St) mirtazapine 15 mg tablet 15 mg PO QAM 05/21/24 08/06/25 pantoprazole 40 mg tablet,delayed 40 mg PO QAM 12/05/24 08/06/25 release amiodarone 200 mg tablet 200 mg PO PRN PRN if blood 01/31/25 08/06/25 pressure is over 120 cetirizine 10 mg tablet (Zyrtec) 10 mg PO PRN PRN Allergy Symptoms 01/31/25 08/06/25 hydroxyzine HCl 25 mg tablet 25 mg PO TID PRN Anxiety 01/31/25 08/06/25 ipratropium bromide 42 mcg (0.06 2 spray intranasal TID PRN 01/31/25 08/06/25 %) nasal spray ALLERGIES magnesium hydroxide 400 mg/5 mL 30 ml PO PRN PRN bowel movemaent 01/31/25 08/06/25 oral suspension (Milk of Magnesia) polyethylene glycol 3350 17 17 g PO QAM Constipation 01/31/25 08/06/25 gram/dose oral powder (Miralax) warfarin 2.5 mg tablet See Rx Instructions .Route .COMPLEX 01/31/25 08/06/25 warfarin 3 mg tablet See Rx Instructions .Route .COMPLEX 05/27/25 08/06/25 folic acid 1 mg tablet 1 mg PO DAILY 06/22/25 08/06/25 acetaminophen 500 mg tablet 1,000 mg PO Q8H 06/25/25 08/06/25 ddaps-nmiaoovf-cud-turp-pet 1 ea topical PRN PRN thick toe 06/25/25 08/06/25 topical ointment nails cyanocobalamin (vitamin B-12) 2,000 mcg sublingual DAILY 06/25/25 08/06/25 1,000 mcg sublingual tablet methyl salicylate 30 %-menthol 10 1 applic topical TID PRN sore 06/25/25 08/06/25 % topical cream (Icy Hot) muscles spironolactone 25 mg tablet 25 mg PO QAM 06/25/25 08/06/25 aspirin 81 mg tablet,delayed 81 mg PO DAILY 07/27/25 08/06/25 release ondansetron 4 mg disintegrating 4 mg PO Q6H PRN Nausea And Vomiting 07/27/25 08/06/25 tablet Previous Rx's ?Medication ?Instructions ?Recorded furosemide 40 mg tablet 60 mg (1.5 x 40 mg) PO DAILY@0700 05/18/23 edema #135 tabs metoprolol tartrate 100 mg tablet 100 mg PO BID #180 tabs 12/05/24 galantamine 8 mg 24 hr 8 mg PO QAM 90 days #90 caps 05/06/25 capsule,extended release memantine 5 mg tablet 5 mg PO BID #180 tabs 05/06/25 atorvastatin 40 mg tablet 40 mg PO BEDTIME #30 tabs 06/29/25 Allergies Allergy/AdvReac Type Severity Reaction Status Date / Time diltiazem (From Cardizem) Allergy Unknown Verified 08/06/25 09:38 morphine Allergy Unknown Verified 08/06/25 09:38 Review of Systems Narrative: Constitutional symptoms: Negative except as documented in HPI. Skin symptoms: Negative except as documented in HPI. Eye symptoms: Negative except as documented in HPI. ENMT symptoms: Negative except as documented in HPI. Respiratory symptoms: Negative except as documented in HPI. Cardiovascular symptoms: Negative except as documented in HPI. Gastrointestinal symptoms: Negative except as documented in HPI. Genitourinary symptoms: Negative except as documented in HPI. Musculoskeletal symptoms: Negative except as documented in HPI. Neurologic symptoms: Negative except as documented in HPI. Psychiatric symptoms: Negative except as documented in HPI. Endocrine symptoms: Negative except as documented in HPI. PFSH ED PFSH: Medical History (Updated 08/14/25 @ 08:10 by Juany Song MD) Chronic anxiety History of iron deficiency anemia Alzheimer disease CKD (chronic kidney disease) stage 2, GFR 60-89 ml/min Hypertension CAD (coronary artery disease) CHF (congestive heart failure) Insomnia Hypothyroid Hyperlipidemia Chronic neck and back pain GERD (gastroesophageal reflux disease) Chronic atrial fibrillation Chronic constipation Surgical History History of heart artery stent Coronary angioplasty/stent placement in 2011 and in 2012 Hx of colonoscopy 2018 H/O esophagogastroduodenoscopy 2011, 2016, and 2018 S/P cholecystectomy H/O section Mitral valve replaced mechanical valve replacement 1994 Family History Other CAD (coronary artery disease) Diabetes Social History Smoking and tobacco/nicotine status: never used tobacco/nicotine Alcohol intake: never Substance/Drug Use: never Housing: Assisted Living Facility Marital status: Single Number of children: 1 Current occupational status: disabled Current gender identity: Female Female Reproductive History: Para: 1 Physical Exam Narrative: EXAM NARRATIVE: General: Alert, no acute distress. Skin: Warm, dry. Head: Normocephalic, atraumatic. Neck: Supple, trachea midline. Eye: Extraocular movements are intact. Ears, nose, mouth and throat: mucosa moist. Cardiovascular: Regular, Normal peripheral perfusion. Mechanical valve click Respiratory: Lungs are clear to auscultation, respirations are non-labored, breath sounds are equal, Symmetrical chest wall expansion. Gastrointestinal: Soft, Nontender, Non distended Musculoskeletal: Normal ROM, no deformity. Neurological: Alert and oriented, No focal neurological deficit observed. Psychiatric: Cooperative, appropriate mood & affect. Course Vital Signs: Vital signs: Vital Signs Temperature 98.3 F 08/14/25 06:32 Pulse Rate 81 08/14/25 06:36 Respiratory Rate 18 08/14/25 06:32 Blood Pressure 90/76 08/14/25 06:36 Pulse Oximetry 92 08/14/25 06:36 Oxygen Delivery Me thod Room Air 08/14/25 06:36 MDM - Chest Pain Medical Decision Making Differential diagnosis for patient with chest pain includes but is not limited to and based on the above HPI, review of systems and physical exam: Pneumonia. unstable angina. angina. Acute coronary syndrome / TN. Pulmonary embolism. Costochondritis / musculoskeletal. Pleurisy. Pericarditis. Esophageal spasm. Pancreatis. Cholecystitis. Orders placed to evaluate differential diagnosis based on the above differential, HPI and physical exam EKG: Time 6:28 AM. Rate 84. Atrial fibrillation with controlled rate, No ST-T changes, no ectopy, This was reviewed and interpreted by myself the ER physician at 6:34 AM Chest x-ray: What appears to be small amount of atelectasis in the left lung. Low lung volumes poor inspiratory effort. She reports no cough or fevers. No pleuritic chest pain. I do not believe this is infectious. No pneumothorax. This was reviewed and interpreted by myself the emergency room physician. I also reviewed the radiology report. Lab Review: Laboratory results were reviewed and interpreted by myself the emergency room physician. No leukocytosis. No anemia. Mild elevation in her BUN with normal creatinine. Initial troponin is 17. Repeat is 15. No significant delta and this is at her baseline. I reviewed the patient's medical record. 74-year-old female with a history of chronic anticoagulation on Coumadin, mitral valve replacement, dementia, anemia, chronic kidney disease, hypertension, coronary artery disease, congestive heart failure, hypothyroidism, hyperlipidemia and atrial fibrillation. Patient had an admission at the end of May and had a cath at that time. She had some severe disease in her right nondominant coronary and this was medically managed. She had some mild disease in the left main and the LAD. She has had multiple recent visits to the emergency room and admission with similar complaints today. Reexamination: Patient remained stable. No increased work of breathing. No altered mental status. No focal motor deficits. Assessment and plan: Chest pain ?No elevation in troponin at this time. She does appear little bit dehydrated so some fluids were ordered - Discharged home - Discussed plan with patient. Answered any questions. - Evaluation and treatment of this problem were appropriate in the emergency setting. Lab Data 08/14/25 06:16 08/14/25 06:16 Radiology Impressions Chest X-Ray 08/14/25 06:31 IMPRESSION: Low lung volumes with similar interstitial coarsening in the lung bases, cdni-zeakqjt-jakh-right, which could represent atelectasis, mild edema, and/or atypical infection. Laboratory Results WBC 5.80 10^3/uL (3.29-11.43) 08/14/25 06:16 RBC 3.56 10^6/uL (3.85-5.65) L 08/14/25 06:16 Hgb 12.40 g/dL (11.27-16.99) 08/14/25 06:16 Hct 36.2 % (36-47) 08/14/25 06:16 MCV 101.7 fl (85-98) H 08/14/25 06:16 MCH 34.8 pg (27-33) H 08/14/25 06:16 MCHC 34.3 g/dL (30-55) 08/14/25 06:16 RDW 13.0 % (12.1-15.1) 08/14/25 06:16 Plt Count 229 10^3/cmm (157-399) 08/14/25 06:16 MPV 9.3 fL (7.4-10.4) 08/14/25 06:16 Neut % (Auto) 50.2 % 08/14/25 06:16 Lymph % (Auto) 30.9 % 08/14/25 06:16 Garrett % (Auto) 12.1 % 08/14/25 06:16 Eos % (Auto) 4.8 % 08/14/25 06:16 Baso % (Auto) 1.7 % 08/14/25 06:16 Neut # (Auto) 2.91 10^3/uL (1.8-7.7) 08/14/25 06:16 Lymph # (Auto) 1.8 10^3/uL (0.8-4.8) 08/14/25 06:16 Garrett # (Auto) 0.7 10^3/uL (0.2-0.9) 08/14/25 06:16 Eos # (Auto) 0.3 10^3/uL (0.0-0.8) 08/14/25 06:16 Baso # (Auto) 0.1 10^3/uL (0.0-0.1) 08/14/25 06:16 Nucleated RBC % (auto) 0 % 08/14/25 06:16 Nucleated RBCs # 0.0 /100WBC 08/14/25 06:16 Sodium 140 mmol/L (136-145) 08/14/25 06:16 Potassium 4.3 mmol/L (3.5-5.1) 08/14/25 06:16 Chloride 103 mmol/L (98-107) 08/14/25 06:16 Carbon Dioxide 27 mmol/L (22-29) 08/14/25 06:16 Anion Gap 14.3 (5-19) 08/14/25 06:16 BUN 25 mg/dL (8-23) H 08/14/25 06:16 Creatinine 0.8 mg/dL (0.5-0.9) 08/14/25 06:16 GFR Calculation Not Reportable 08/14/25 06:16 Glucose 94 mg/dL (65-115) 08/14/25 06:16 Calculated Osmolality 294 mOsm/kg (285-295) 08/14/25 06:16 Calcium 10.2 mg/dL (8.5-10.5) 08/14/25 06:16 Total Bilirubin 1.0 mg/dL (0.15-1.2) 08/14/25 06:16 AST 22 U/L (0-32) 08/14/25 06:16 ALT 14 U/L (0-33) 08/14/25 06:16 Alkaline Phosphatase 87 U/L (35-105) 08/14/25 06:16 Troponin T Baseline 17 ng/L (0-10) H 08/14/25 06:16 Troponin T 120 Minute 14.70 ng/L (0-10) H 08/14/25 07:35 Delta Troponin T -2.30 ABS# (0-10) L 08/14/25 07:35 NT-Pro-B Natriuret Pep 676 pg/mL (0-450) H 08/14/25 06:16 Total Protein 7.2 g/dL (6.6-8.7) 08/14/25 06:16 Albumin 4.5 g/dL (3.5-5.2) 08/14/25 06:16 Globulin 2.7 g/dL (1.3-4.6) 08/14/25 06:16 Urine Color Yellow (Yellow) 08/14/25 07:10 Urine Appearance Clear (CLEAR) 08/14/25 07:10 Urine pH 6.0 (5-7) 08/14/25 07:10 Ur Specific [place] 1.025 (1.005-1.030) 08/14/25 07:10 Urine Protein Negative (Negative) 08/14/25 07:10 Urine Glucose (UA) Negative (Normal) 08/14/25 07:10 Urine Ketones Negative (Negative) 08/14/25 07:10 Urine Blood Negative (Negative) 08/14/25 07:10 Urine Nitrate Negative (Negative) 08/14/25 07:10 Urine Bilirubin Negative (Negative) 08/14/25 07:10 Urine Urobilinogen 2.0 mg/dL (Negative) H 08/14/25 07:10 Ur Leukocyte Esterase Negative (Negative) 08/14/25 07:10 Urine RBC 0-2 /hpf (0-2) 08/14/25 07:10 Urine WBC 0-5 /hpf (0-5) 08/14/25 07:10 Ur Squamous Epith Cells 0-5 /hpf (0-5) 08/14/25 07:10 Amorphous Sediment Not Reportable 08/14/25 07:10 Urine Bacteria None seen /hpf (NONE) 08/14/25 07:10 Hyaline Casts 0.81 /lpf 08/14/25 07:10 All radiology interpretation(s) finalized by discharge Clincial Decision Support The following clinical decision support tools were used to aid in care of the patient HEART Score -> History: Slightly Suspicous, EKG: Normal, Age: 65 or more yrs, Risk Factors: >/=3 Risk Factors, Troponin: Baseline Trop 16-45 ng/L. Resulting HEART Score: 5. Discharge Plan Discharge Patient Disposition: Home Clinical Impression: Chest pain Condition: Stable Prescriptions: No Action nitroglycerin [Nitrostat] 0.4 mg tablet, sublingual 0.4 mg SUBLINGUAL Q5M PRN (Reason: chest pains) Pepto-Bismol Max St 525 mg/15 mL suspension 525 mg PO Q8H PRN (Reason: Nausea/vomiting/diarrhea) Rx Instructions: do not exceed 8 doses in a 24 hour period meclizine 12.5 mg tablet 12.5 mg PO Q6H PRN (Reason: nausea and vomiting ) potassium chloride 20 mEq tablet extended release 20 meq PO BID@0700,1900 mirtazapine 15 mg tablet 15 mg PO QAM metoprolol tartrate 100 mg tablet 100 mg PO BID Qty: 180 3RF folic acid 1 mg tablet 1 mg PO DAILY furosemide 40 mg tablet 60 mg PO DAILY@0700 Qty: 135 0RF galantamine 8 mg capsule,ext rel. pellets 24 hr 8 mg PO QAM 90 Days Qty: 90 3RF memantine 5 mg tablet 5 mg PO BID Qty: 180 3RF tramadol 50 mg Tablet 50 mg PO Q6H PRN (Reason: Pain) levothyroxine [Euthyrox] 75 mcg tablet 75 mcg PO DAILY@0700 pantoprazole 40 mg tablet,delayed release (DR/EC) 40 mg PO QAM cetirizine [Zyrtec] 10 mg Tablet 10 mg PO PRN PRN (Reason: Allergy Symptoms) warfarin 2.5 mg tablet See Rx Instructions .ROUTE .COMPLEX Rx Instructions: Take 1 tablet by mouth on Sunday , Sunday , , Sunday , and Sunday hydroxyzine HCl 25 mg tablet 25 mg PO TID PRN (Reason: Anxiety) polyethylene glycol 3350 [Miralax] 17 gram/dose Powder 17 g PO QAM ipratropium bromide 42 mcg (0.06 %) spray,non-aerosol 2 spray INTRANASAL TID PRN (Reason: ALLERGIES) magnesium hydroxide [Milk of Magnesia] 400 mg/5 mL Suspension 30 ml PO PRN PRN (Reason: bowel movemaent ) amiodarone 200 mg tablet 200 mg PO PRN PRN (Reason: if blood pressure is over 120) cyanocobalamin (vitamin B-12) 1,000 mcg Tablet, Sublingual 2,000 mcg SUBLINGUAL DAILY xhtds-nzxjtaum-emh-turp-pet Ointment 1 ea TOPICAL PRN PRN (Reason: thick toe nails) acetaminophen 500 mg Tablet 1,000 mg PO Q8H Icy Hot 30-10 % Cream 1 applic TOPICAL TID PRN (Reason: sore muscles) spironolactone 25 mg tablet 25 mg PO QAM atorvastatin 40 mg Tablet 40 mg PO BEDTIME Qty: 30 0RF aspirin [Aspir-81] 81 mg Tablet,Delayed Release (Dr/Ec) 81 mg PO DAILY ondansetron 4 mg tablet,disintegrating 4 mg PO Q6H PRN (Reason: Nausea And Vomiting) warfarin 3 mg tablet See Rx Instructions .ROUTE .COMPLEX Rx Instructions: Take 1 tablet by mouth on Sunday and Sunday Discharge Orders: Discharge ED (Routine); Ordered 08/14/25 Ordered By: Juany Song Referrals: Danny Marmolejo MD [Primary Care Provider, Family Practice] Discharge Diet: Usual diet Discharge Activity: Increase activity as tolerated Patient Instructions: Chest Pain (ED), Opioid Safety, Pain Management, Patient Portal & Radha Instructions Activity Restrictions/Additional Instructions: Thank you for choosing [facility] for your healthcare needs today. You have been screened and evaluated and felt safe for discharge. Health conditions do change or evolve sometimes and as such it is important that you follow up with your Primary Doctor to be re checked, 3-5 days is a general good time frame for follow up. You are always welcome to return to the ED for re assessment if your symptoms are worsening or you have new concerns Print Language: Mohawk Coding Level of Care Code ED Laboratory Inspector for Chg Fwd Heart Score HEART Score Components History: Slightly Suspicous EKG: Normal Age: 65 or more yrs Risk Factors: >/=3 Risk Factors Troponin: Baseline Trop 16-45 ng/L HEART Score RESULT HEART Score: 5
[2025-08-14 06:36] VITALS: BP 90/76; PULSE 81; O2SAT 92
[2025-08-14 06:38] LABS: Hematocrit 36.2 % (36-47); Hemoglobin 12.40 g/dL (11.27-16.99); Mean Corpuscular HGB Conc 34.3 g/dL (30-55); Mean Corpuscular Hemoglobin 34.8 pg (27-33); Mean Corpuscular Volume 101.7 fl (85-98); Nucleated Red Blood Cells % 0 %; Platelet Count 229 10^3/cmm (157-399); Red Blood Count 3.56 10^6/uL (3.85-5.65); White Blood Count 5.80 10^3/uL (3.29-11.43)
[2025-08-14 07:00] LABS: Troponin(5th) Baseline 17 ng/L (0-10)
[2025-08-14 07:08] LABS: Alanine Aminotransferase 14 U/L (0-33); Albumin Level 4.5 g/dL (3.5-5.2); Alkaline Phosphatase 87 U/L (35-105); Anion Gap 14.3 (5-19); Aspartate Amino Transferase 22 U/L (0-32); Blood Urea Nitrogen 25 mg/dL (8-23); Calcium 10.2 mg/dL (8.5-10.5); Carbon Dioxide 27 mmol/L (22-29); Chloride 103 mmol/L (98-107); Creatinine Clr Calc Pharmacy 55.9828; Globulin 2.7 g/dL (1.3-4.6); Glucose 94 mg/dL (65-115); NT Pro B Type Natriuretic Pept 676 pg/mL (0-450); Osmolality Calculated 294 mOsm/kg (285-295); Potassium 4.3 mmol/L (3.5-5.1); Sodium 140 mmol/L (136-145); Total Protein 7.2 g/dL (6.6-8.7)
[2025-08-14 07:47] LABS: Glucose Urine UA Negative (Normal); Nitrate Urine Negative (Negative); Specific Gravity, Urine 1.025 (1.005-1.030)
[2025-08-14 07:56] LABS: Troponin 5 2HR 14.70 ng/L (0-10)
[2025-08-14 08:04] LABS: Troponin 5 2HR Delta -2.30 ABS# (0-10)
[2025-08-14 08:45] VITALS: BP 111/68; PULSE 95; RESP 15; O2SAT 91
== END 2025-08-14 08:45 | disposition home or self-care (01) ==
PROVIDERS: Emergency Provider Emergency Medicine; PCP Family Medicine
DX: R07.9 Chest pain, unspecified (principal); Z79.01 Long term (current) use of anticoagulants; Z79.82 Long term (current) use of aspirin; I25.10 Atherosclerotic heart disease of native coronary artery without angina pectoris; E78.5 Hyperlipidemia, unspecified; I13.0 Hypertensive heart and chronic kidney disease with heart failure and stage 1 through stage 4 chronic kidney disease, or unspecified chronic kidney disease; N18.2 Chronic kidney disease, stage 2 (mild); I50.9 Heart failure, unspecified
CPT/HCPCS: 36415; 71045; 80053; 81001; 83880; 84484; 85025; 93005; 99285

== ENCOUNTER 2025-08-15 22:50 | Emergency (ER) | payer MEDICARE, MEDICAID, SELFPAY ==
--- NOTE | 2025-08-15 22:44 | ECG_ITS ---
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 Measurements Intervals [place] Rate: 74 P: 0 HI: 0 QRS: -4 QRSD: 119 T: 18 QT: 396 QTc: 440 Interpretive Statements Atrial fibrillation with a controlled ventricular response rate 74/min INCOMPLETE RIGHT BUNDLE BRANCH BLOCK [90+ ms QRS DURATION, TERMINAL R IN V1/V2, 40+ ms S IN I/aVL/V4/V5/V6] ABNORMAL RHYTHM ECG Compared to ECG 08/14/2025 06:28:43 Incomplete right bundle-branch block now present Atrial fibrillation no longer present Ventricular premature complex(es) no longer present Aberrant conduction of supraventricular beat(s) no longer present Left posterior fascicular block no longer present Electronically Signed On 08-18-2025 19:32:07 CDT by Katrin Petit M.D. [email or web address]
--- NOTE | 2025-08-15 22:44 | XRR_ITS ---
PROCEDURE INFORMATION: Exam: XR Chest Exam date and time: 08/16/2025 12:29 AM Age: 74 years old Clinical indication: Chest pressure; Prior surgery; Surgery date: 6+ months; Surgery type: Mitral valve replacement. Coronary stents; C/O chest pain; Additional info: Cp TECHNIQUE: Imaging protocol: Radiologic exam of the chest. Views: 1 view. COMPARISON: CR (CHEST, ) 08/14/2025 6:43 AM FINDINGS: Lungs: Linear scarring and chronic interstitial coarsening primarily in the perihilar regions and lingula. Calcified granuloma right apex. No new airspace consolidation or overt pulmonary edema. Pleural spaces: No appreciable pleural effusion. No pneumothorax. Heart/Mediastinum: Stable cardiomediastinal contours with prominent cardiac silhouette and tortuous aorta. Prior median sternotomy. Bones/joints: No acute osseous findings. Old right impacted humeral fracture. XR/XR chest 1V portable [id number] IMPRESSION: Chronic pleuroparenchymal changes with no acute findings.
[2025-08-15 22:50] VITALS: BP 137/93; PULSE 88; RESP 16; TEMP 36.7; O2SAT 95; BMI 30.2
--- OUTSIDE RECORDS SUMMARY | 2025-08-15 22:54 | XMS_ITS | Encounter Summary ---
Author Organization [facility] Address [address] [place] [address] Care Team Providers Care Technical Analyst Name Role Phone Rico Muñiz MD, Sharan Jaime Primary Care Provider Encounter Details Date Type Department Care Team (Late st Contact Info) Description 06/21/2000 Outpatient Historical [facility] Serge Arrington MD [address] [facility] [address] [place] [id number] Unspecified essential hypertension (Primary Dx); Mitral valve disorder; care home (current) use of anticoagulants Social History Tobacco Use Types Packs/Day Years Used Date Smoking Tobacco: Never Assessed Comments Unknown Sex and Gender Information Value Date Recorded Sex Assigned at Not on file 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
--- OUTSIDE RECORDS SUMMARY | 2025-08-15 22:54 | XMS_ITS | Encounter Summary ---
Author Organization [facility] Address [address] [place] [address] Care Team Providers Care Boring Machine Operator Horizontal Name Role Phone Rico Muñiz MD, Sharan Jaime Primary Care Provider Encounter Details Date Type Department Care Team (Latest Contact Info) Description 11/28/2001 Outpatient Historical [facility] Sharan Gómez Jr., MD [address] [place] [address] URIN TRACT INFECTION NOS (Primary Dx); AFTERCARE HALF-WAY ANTICOAG USE Social History Tobacco Use Types Packs/Day Years Used Date Smoking Tobacco: Never Assessed Comments Unknown Sex and Gender Information Value Date Recorded Sex Assigned at Not on file 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 Gender Identity Not on file Sexual Orientation Not on file documented as of this encounter Plan of Treatment Not on file documented as of this encounter Visit Diagnoses Diagnosis Urinary tract infection, site not specified- 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
--- OUTSIDE RECORDS SUMMARY | 2025-08-15 22:54 | XMS_ITS | Encounter Summary ---
Author Organization [facility] Address [address] [facility] Attn: [place] [address] Care Team Providers Care Senior Revenue Accountant Name Role Phone Rico Muñiz MD, Sharan Jaime Primary Care Provider Encounter Details Date Type Department Care Team (Late st Contact Info) Description 08/16/2000 Outpatient Historical Sharan Gómez Jr., MD [address] [place] [address] Social History Tobacco Use Types Packs/Day Years Used Date Smoking Tobacco: Never Assessed Comments Unknown Sex and Gender Information Value Date Recorded Sex Assigned at Not on file 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
--- OUTSIDE RECORDS SUMMARY | 2025-08-15 22:54 | XMS_ITS | Encounter Summary ---
Author Organization [facility] Address [address] [place] [address] Care Team Providers Care Geriatrician Name Role Phone Rico Muñiz MD, Sharan Jaime Primary Care Provider Encounter Details Date Type Department Care Team (Late st Contact Info) Description 06/24/2001 Outpatient Historical [facility] Serge Arrington MD [address] [facility] [place] [address] [place] [phone] Unspecified essential hypertension (Primary Dx); Other and unspecified hyperlipidemia Social History Tobacco Use Types Packs/Day Years Used Date Smoking Tobacco: Never Assessed Comments Unknown Sex and Gender Information Value Date Recorded Sex Assigned at Not on file 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
--- OUTSIDE RECORDS SUMMARY | 2025-08-15 22:54 | XMS_ITS | Encounter Summary ---
Author Organization [facility] Address [address] [facility] Attn: [place] [address] Care Team Providers Care Rn Cardiac Cath Name Role Phone Rico Muñiz MD, Sharan Jaime Primary Care Provider Encounter Details Date Type Department Care Team (Late st Contact Info) Description 12/20/2001 Outpatient Historical Sharan Gómez Jr., MD [address] [place] [address] Social History Tobacco Use Types [...] filedocumented in this encounter Care Teams Rn Cardiac Cath Relationship Specialty Start Date End Date Sharan Gómez Jr., MD [address] [place] [address] PCP - General 08/10/05 documented as of this encounter
--- OUTSIDE RECORDS SUMMARY | 2025-08-15 22:54 | XMS_ITS | Encounter Summary ---
Author Organization [facility] Address [address] [place] [address] Care Team Providers Care Line Construction Engineer Name Role Phone Rico Muñiz MD, Sharan Jaime Primary Care Provider Encounter Details Date Type Department Care Team (Latest Contact Info) Description 06/24/2001 Outpatient Historical [facility] Int Luis AFaisal Lopez [place] [place] [phone] Serge Arrington MD [address] [place] [address] Mitral valve disorder (Primary Dx); Unspecified essential hypertension; Other and unspecified hyperlipidemia; Dizziness and giddiness Social History Tobacco Use Types Packs/Day Years Used Date Smoking Tobacco: Never Assessed Comments Unknown Sex and Gender Information Value Date Recorded Sex Assigned at Not on file Legal Sex Female 5:42 AM RADIOLOGY TECH Gender Identity Not on file Sexual Orientation Not on file documented as of this encounter Plan of Treatment Not on file documented as of this encounter Visit Diagnoses Diagnosis Mitral valve disorder- Primary Mitral valve disorders Unspecified essential hypertension Other and unspecified hyperlipidemia Dizziness and giddiness documented in this encounter Care Teams Line Construction Engineer Relationship Specialty Start Date End Date Sharan Gómez Jr., MD [address] [place] [address] PCP - General 08/10/05 documented as of this encounter
--- OUTSIDE RECORDS SUMMARY | 2025-08-15 22:54 | XMS_ITS | Encounter Summary ---
Author Organization [facility] Address [address] [place] [address] Care Team Providers Care Manager Hydraulic Name Role Phone Rico Muñiz MD, Sharan Jaime Primary Care Provider Encounter Details Date Type Department Care Team (Latest Contact Info) Description 02/03/2002 Outpatient Historical [facility] Sharan Gómez Jr., MD [address] [place] [address] HEART VALVE REPLAC NEC (Primary Dx); [facility]ATOR ANTICOAG USE Social History Tobacco Use Types Packs/Day Years Used Date Smoking Tobacco: Never Assessed Comments Unknown Sex and Gender Information Value Date Recorded Sex Assigned at Not on file Legal Sex Female 5:42 AM BOOKS SALESPERSON Gender Identity Not on file Sexual Orientation Not on file documented as of this encounter Plan of Treatment Not on file documented as of this encounter Visit Diagnoses Diagnosis Heart valve replaced by other means- Primary termite control technician (current) use of anticoagulants Long-term (current) use of anticoagulants documented in this encounter Care Teams Manager Hydraulic Relationship Specialty Start Date End Date Sharan Gómez Jr., MD [address] [place] [address] PCP - General 08/10/05 documented as of this encounter
--- OUTSIDE RECORDS SUMMARY | 2025-08-15 22:54 | XMS_ITS | Encounter Summary ---
Author Organization [facility] Address [address] [facility] Attn: [place] [address] Care Team Providers Care Operations Program Manager Name Role Phone Rico Muñiz MD, Sharan Jaime Primary Care Provider Encounter Details Date Type Department Care Team (Late st Contact Info) Description 07/03/2002 Outpatient Historical Екатерина Malone MD [address] [place] [address] Social History Tobacco Use Types Packs/Day Years Used Date Smoking Tobacco: Never Assessed Comments Unknown Sex and Gender Information Value Date Recorded Sex Assigned at Not on file Legal Sex Female 5:42 AM ARCHITECT MANAGER Gender Identity Not on file Sexual Orientation Not on file documented as of this encounter Plan of Treatment Not on file documented as of this encounter Visit Diagnoses Not on filedocumented in this encounter Care Teams Operations Program Manager Relationship Specialty Start Date End Date Sharan Gómez Jr., MD [address] [place] [phone] PCP - General 08/10/05 documented as of this encounter
--- OUTSIDE RECORDS SUMMARY | 2025-08-15 22:54 | XMS_ITS | Encounter Summary ---
Author Organization [facility] Address [address] [place] [address] Care Team Providers Care Drama Director Name Role Phone Rico Muñiz MD, Sharan Jaime Primary Care Provider Encounter Details Date Type Department Care Team (Latest Contact Info) Description 06/24/2001 Outpatient Historical [facility] Imaging Services-Faisal Lopez Michelle [address] [place] [address] Serge Arrington MD [address] [place] [address] Unspecified congenital anomaly of heart (Primary Dx) Social History Tobacco Use Types Packs/Day Years Used Date Smoking Tobacco: Never Assessed Comments Unknown Sex and Gender Information Value Date Recorded Sex Assigned at Not on file Legal Sex Female 5:42 AM AIRCRAFT ACCESSORIES MECHANIC Gender Identity Not on file Sexual Orientation Not on file documented as of this encounter Plan of Treatment Not on file documented as of this encounter Visit Diagnoses Diagnosis Unspecified congenital anomaly of heart- Primary documented in this encounter Care Teams Drama Director Relationship Specialty Start Date End Date Sharan Gómez Jr., MD [address] [place] [address] PCP - General 08/10/05 documented as of this encounter
--- OUTSIDE RECORDS SUMMARY | 2025-08-15 22:54 | XMS_ITS | Encounter Summary ---
Author Organization [facility] Address [address] [place] [address] Care Team Providers Care Memory Care Program Director Name Role Phone Rico Muñiz MD, Sharan Jaime Primary Care Provider Encounter Details Date Type Department Care Team (Latest Contact Info) Description 06/24/2002 Outpatient Historical [facility] [place] [address] Serge Arrington MD [address] [place] [address] Mitral valve disorder (Primary Dx); CORONARY ATHEROSCLER UNSPEC VESSEL; HYPERTENSION NOS; HYPERLIPIDEMIA NEC/NOS Social History Tobacco Use Types Packs/Day Years Used Date Smoking Tobacco: Never Assessed Comments Unknown Sex and Gender Information Value Date Recorded Sex Assigned at Not on file Legal Sex Female 5:42 AM CLERK TELEGRAPH SERVICE Gender Identity Not on file Sexual Orientation Not on file documented as of this encounter Plan of Treatment Not on file documented as of this encounter Visit Diagnoses Diagnosis Mitral valve disorder- Primary Mitral valve disorders Coronary atherosclerosis of unspecified type of vessel, lower [place] or graft Unspecified essential hypertension Other and unspecified hyperlipidemia documented in this encounter Care Teams Memory Care Program Director Relationship Specialty Start Date End Date Sharan Gómez Jr., MD [address] [place] [address] PCP - General 08/10/05 documented as of this encounter
--- OUTSIDE RECORDS SUMMARY | 2025-08-15 22:54 | XMS_ITS | Encounter Summary ---
Author Organization [facility] Address [address] [facility] Attn: [place] [address] Care Team Providers Care Business Support Specialist Name Role Phone Rico Muñiz MD, Sharan Jaime Primary Care Provider Encounter Details Date Type Department Care Team (Late st Contact Info) Description 08/05/2001 Outpatient Historical Sharan Gómez Jr., MD [address] [place] [address] Social History Tobacco Use Types Packs/Day Years Used Date Smoking Tobacco: Never Assessed Comments Unknown Sex and Gender Information Value Date Recorded Sex Assigned at Not on file Legal Sex Female 5:42 AM DIRECTOR SPEECH AND HEARING Gender Identity Not on file Sexual Orientation Not on file documented as of this encounter Plan of Treatment Not on file documented as of this encounter Visit Diagnoses Not on filedocumented in this encounter Care Teams Business Support Specialist Relationship Specialty Start Date End Date Sharan Gómez Jr., MD [address] [place] [address] PCP - General 08/10/05 documented as of this encounter
--- OUTSIDE RECORDS SUMMARY | 2025-08-15 22:54 | XMS_ITS | Encounter Summary ---
Author Organization [facility] Address [address] [place] [address] Care Team Providers Care Painting Machine Operator Name Role Phone Rico Muñiz MD, Sharan Jaime Primary Care Provider Encounter Details Date Type Department Care Team (Latest Contact Info) Description 06/26/2003 Outpatient Historical [facility] Int [facility] John [address] [place] [address] Serge Arrington MD [address] [place] [address] Mitral valve disorder (Primary Dx); HYPERTENSION NOS; HYPERLIPIDEMIA NEC/NOS; VACCINE FOR STREP PNEUMONIAE Social History Tobacco Use Types Packs/Day Years Used Date Smoking Tobacco: Never Assessed Comments Unknown Sex and Gender Information Value Date Recorded Sex Assigned at Not on file Legal Sex Female 5:42 AM FAVOR MAKER Gender Identity Not on file Sexual [...] (pneumococcus) documented in this encounter Care Teams Painting Machine Operator Relationship Specialty Start Date End Date Sharan Gómez Jr., MD [address] [place] [address] PCP - General 08/10/05 documented as of this encounter
--- OUTSIDE RECORDS SUMMARY | 2025-08-15 22:54 | XMS_ITS | Encounter Summary ---
Author Organization [facility] Address [address] [place] [address] Care Team Providers Care Semiconductor Bonder Name Role Phone Rico Muñiz MD, Sharan Jaime Primary Care Provider Encounter Details Date Type Department Care Team (Latest Contact Info) Description 08/06/2006 Outpatient Historical [facility] Int Luis AFaisal Lopez [place] [place] [address] Serge Arrington MD [address] [place] [address] Mitral Valve Disorder (Primary Dx); Other and Unspecified Hyperlipidemia; Screening for Malignant Neoplasm of the Cervix Social History Tobacco Use Types Packs/Day Years Used Date Smoking Tobacco: Never Assessed Comments Unknown Sex and Gender Information Value Date Recorded Sex Assigned at Not on file Legal Sex Female 5:42 AM ANESTHESIA ASSOCIATE Gender Identity Not on file Sexual Orientation Not on file documented as of this encounter Plan of Treatment Not on file documented as of this encounter Visit Diagnoses Diagnosis Mitral valve disorder- Primary Mitral valve disorders Other and unspecified hyperlipidemia Screening for malignant neoplasm of the cervix documented in this encounter Care Teams Semiconductor Bonder Relationship Specialty Start Date End Date Sharan Gómez Jr., MD [address] [place] [phone] PCP - General 08/10/05 documented as of this encounter
--- OUTSIDE RECORDS SUMMARY | 2025-08-15 22:54 | XMS_ITS | Encounter Summary ---
Author Organization [facility] Address [address] [place] [address] Care Team Providers Care Embroiderer Hand Name Role Phone Rico Muñiz MD, Sharan Jaime Primary Care Provider Encounter Details Date Type Department Care Team (Latest Contact Info) Description 02/04/2007 Outpatient Historical [facility] Int Luis AFaisal Lopez [place]-[address] [place] [address] Serge Arrington MD [address] [place] [address] Unspecified Essential Hypertension (Primary Dx); Mitral Valve Disorder; Other and Unspecified Hyperlipidemia Social History Tobacco Use Types Packs/Day Years Used Date Smoking Tobacco: Never Assessed Comments Unknown Sex and Gender Information Value Date Recorded Sex Assigned at Not on file Legal Sex Female 5:42 AM LIVE IN COMPANION Gender Identity Not on file Sexual Orientation Not on file documented as of this encounter Plan of Treatment Not on file documented as of this encounter Visit Diagnoses Diagnosis Unspecified essential hypertension- Primary Mitral valve disorder Mitral valve disorders Other and unspecified hyperlipidemia documented in this encounter Care Teams Embroiderer Hand Relationship Specialty Start Date End Date Sharan Gómez Jr., MD [address] [place] [address] PCP - General 08/10/05 documented as of this encounter
--- OUTSIDE RECORDS SUMMARY | 2025-08-15 22:54 | XMS_ITS | Encounter Summary ---
Author Organization [facility] Address [address] [place] [address] Care Team Providers Care Head Strength And Conditioning Coach Name Role Phone Rico Muñiz MD, Sharan Jaime Primary Care Provider Encounter Details Date Type Department Care Team (Latest Contact Info) Description 06/28/2001 Outpatient Historical [facility] Sharan Gómez Jr., MD [address] [place] [address] Esophageal reflux (Primary Dx); Heart valve replaced by other means Social History Tobacco Use Types Packs/Day Years Used Date Smoking Tobacco: Never Assessed Comments Unknown Sex and Gender Information Value Date Recorded Sex Assigned at Not on file Legal Sex Female 5:42 AM STAINED GLASS PAINTER Gender Identity Not on file Sexual Orientation Not on file documented as of this encounter Plan of Treatment Not on file documented as of this encounter Visit Diagnoses Diagnosis Esophageal reflux- Primary Heart valve replaced by other means documented in this encounter Care Teams Head Strength And Conditioning Coach Relationship Specialty Start Date End Date Sharan Gómez Jr., MD [address] [place] [address] PCP - General 08/10/05 documented as of this encounter
--- OUTSIDE RECORDS SUMMARY | 2025-08-15 22:54 | XMS_ITS | Encounter Summary ---
Author Organization [facility] Address [address] [place] [address] Care Team Providers Care Jute Bag Cutting Machine Operator Name Role Phone Rico Muñiz MD, Sharan Jaime Primary Care Provider Encounter Details Date Type Department Care Team (Latest Contact Info) Description 07/15/2002 Outpatient Historical [facility] Rafael Lopez Michelle [address] [place] [address] Patrick Olsen MD NO ADDRESS ON FILE POSTMENOPAUSAL BLEEDING (Primary Dx); DYSPAREUNIA; SCREENING MAL NEOP-CERVIX Social History Tobacco Use Types Packs/Day Years Used Date Smoking Tobacco: Never Assessed Comments Unknown Sex and Gender Information Value Date Recorded Sex Assigned at Not on file Legal Sex Female 5:42 AM LOCAL TRUCK DRIVER Gender Identity Not on file Sexual Orientation Not on file documented as of this encounter Plan of Treatment Not on file documented as of this encounter Visit Diagnoses Diagnosis Postmenopausal bleeding- Primary Dyspareunia Screening for malignant neoplasm of the cervix documented in this encounter Care Teams Jute Bag Cutting Machine Operator Relationship Specialty Start Date End Date Sharan Gómez Jr., MD [address] [place] [address] PCP - General 08/10/05 documented as of this encounter
--- OUTSIDE RECORDS SUMMARY | 2025-08-15 22:54 | XMS_ITS | Encounter Summary ---
Author Organization [facility] Address [address] [place] [address] Care Team Providers Care Combination Machine Tool Setter Name Role Phone Rico Muñiz MD, Sharan Jaime Primary Care Provider Encounter Details Date Type Department Care Team (Latest Contact Info) Description 11/05/2003 Outpatient Historical [facility] [address] [place] [address] Екатерина Malone MD [address] [place] [address] HYPERLIPIDEMIA NEC/NOS (Primary Dx) Social History Tobacco Use Types Packs/Day Years Used Date Smoking Tobacco: Never Assessed Comments Unknown Sex and Gender Information Value Date Recorded Sex Assigned at Not on file Legal Sex Female 5:42 AM SITE SUPERVISING TECHNICAL OPERATOR Gender Identity Not on file Sexual Orientation Not on file documented as of this encounter Plan of Treatment Not on file documented as of this encounter Visit Diagnoses Diagnosis Other and unspecified hyperlipidemia- Primary documented in this encounter Care Teams Combination Machine Tool Setter Relationship Specialty Start Date End Date Sharan Gómez Jr., MD [address] [place] [address] PCP - General 08/10/05 documented as of this encounter
--- OUTSIDE RECORDS SUMMARY | 2025-08-15 22:54 | XMS_ITS | Encounter Summary ---
Author Organization [facility] Address [address] [place] [address] Care Team Providers Care Painting Worker Name Role Phone Rico Muñiz MD, Sharan Jaime Primary Care Provider Encounter Details Date Type Department Care Team (Latest Contact Info) Description 08/05/2001 Outpatient Historical [facility] Sharan Gómez Jr., MD [address] [place] [address] Generalized anxiety disorder (Primary Dx); Hypopotassemia Social History Tobacco Use Types Packs/Day Years Used Date Smoking Tobacco: Never Assessed Comments Unknown Sex and Gender Information Value Date Recorded Sex Assigned at Not on file Legal Sex Female 5:42 AM SEISMIC ENGINEER Gender Identity Not on file Sexual Orientation Not on file documented as of this encounter Plan of Treatment Not on file documented as of this encounter Visit Diagnoses Diagnosis Generalized anxiety disorder- Primary Hypopotassemia documented in this encounter Care Teams Painting Worker Relationship Specialty Start Date End Date Sharan Gómez Jr., MD [address] [place] [address] PCP - General 08/10/05 documented as of this encounter
--- OUTSIDE RECORDS SUMMARY | 2025-08-15 22:54 | XMS_ITS | Encounter Summary ---
Author Organization [facility] Address [address] [place] [address] Care Team Providers Care Painter Sign Maintenance Name Role Phone Rico Muñiz MD, Sharan Jaime Primary Care Provider Encounter Details Date Type Department Care Team (Latest Contact Info) Description 11/14/2001 Outpatient Historical [facility] Sharan Gómez Jr., MD [address] [place] [address] OSTEOARTHROS NOS-UNSPEC (Primary Dx); HEART VALVE REPLAC NEC Social History Tobacco Use Types Packs/Day Years Used Date Smoking Tobacco: Never Assessed Comments Unknown Sex and Gender Information Value Date Recorded Sex Assigned at Not on file Legal Sex Female 5:42 AM DUMPER CENTRAL CONCRETE MIXING PLANT Gender Identity Not on file Sexual Orientation Not on file documented as of this encounter Plan of Treatment Not on file documented as of this encounter Visit Diagnoses Diagnosis Osteoarthrosis, unspecified whether generalized or localized, unspecified site- Primary Heart valve replaced by other means documented in this encounter Care Teams Painter Sign Maintenance Relationship Specialty Start Date End Date Sharan Gómez Jr., MD [address] [place] [address] PCP - General 08/10/05 documented as of this encounter
--- OUTSIDE RECORDS SUMMARY | 2025-08-15 22:54 | XMS_ITS | Encounter Summary ---
Author Organization [facility] Address [address] [place] [address] Care Team Providers Care Raiser Helper Name Role Phone Rico Muñiz MD, Sharan Jaime Primary Care Provider Encounter Details Date Type Department Care Team (Latest Contact Info) Description 06/28/2000 Outpatient Historical [facility] Sharan Gómez Jr., MD [address] [place] [address] Pure hypercholesterolem (Primary Dx); Hypopotassemia; Heart valve replaced by other means Social History Tobacco Use Types Packs/Day Years Used Date Smoking Tobacco: Never Assessed Comments Unknown Sex and Gender Information Value Date Recorded Sex Assigned at Not on file Legal Sex Female 5:42 AM BOWL TOPPER Gender Identity Not on file Sexual Orientation Not on file documented as of this encounter Plan of Treatment Not on file documented as of this encounter Visit Diagnoses Diagnosis Pure hypercholesterolem- Primary Pure hypercholesterolemia Hypopotassemia Heart valve replaced by other means documented in this encounter Care Teams Raiser Helper Relationship Specialty Start Date End Date Sharan Gómez Jr., MD [address] [place] [address] PCP - General 08/10/05 documented as of this encounter
--- OUTSIDE RECORDS SUMMARY | 2025-08-15 22:54 | XMS_ITS | Encounter Summary ---
Author Organization [facility] Address [address] [place] [address] Care Team Providers Care Deli Department Manager Name Role Phone Rico Muñiz MD, Sharan Jaime Primary Care Provider Encounter Details Date Type Department Care Team (Latest Contact Info) Description 06/26/2003 Outpatient Historical [facility] Imaging Services-Faisal Lopez Michelle [address] [place] [address] Serge Arrington MD [address] [place] [address] HYPERTENSION NOS (Primary Dx); Routine medical exam Social History Tobacco Use Types Packs/Day Years Used Date Smoking Tobacco: Never Assessed Comments Unknown Sex and Gender Information Value Date Recorded Sex Assigned at Not on file Legal Sex Female 5:42 AM AIRDROP SYSTEMS TECHNICIAN Gender Identity Not on file Sexual Orientation Not on file documented as of this encounter Plan of Treatment Not on file documented as of this encounter Visit Diagnoses Diagnosis Unspecified essential hypertension- Primary Routine medical exam Routine general medical examination at a health care facility documented in this encounter Care Teams Deli Department Manager Relationship Specialty Start Date End Date Sharan Gómez Jr., MD [address] [place] [address] PCP - General 08/10/05 documented as of this encounter
--- OUTSIDE RECORDS SUMMARY | 2025-08-15 22:54 | XMS_ITS | Encounter Summary ---
Author Organization [facility] Address [address] [place] [address] Care Team Providers Care Chief Technologist Name Role Phone Rico Muñiz MD, Sharan Jaime Primary Care Provider Encounter Details Date Type Department Care Team (Latest Contact Info) Description 03/09/2003 Outpatient Historical [facility] [address] [place] [address] Екатерина Malone MD [address] [place] [address] ABN BLOOD CHEMISTRY NEC (Primary Dx) Social History Tobacco Use Types Packs/Day Years Used Date Smoking Tobacco: Never Assessed Comments Unknown Sex and Gender Information Value Date Recorded Sex Assigned at Not on file Legal Sex Female 5:42 AM IDENTIFICATION TECHNICIAN Gender Identity Not on file Sexual Orientation Not on file documented as of this encounter Plan of Treatment Not on file documented as of this encounter Visit Diagnoses Diagnosis Other abnormal blood chemistry- Primary documented in this encounter Care Teams Chief Technologist Relationship Specialty Start Date End Date Sharan Gómez Jr., MD [address] [place] [address] PCP - General 08/10/05 documented as of this encounter
--- OUTSIDE RECORDS SUMMARY | 2025-08-15 22:54 | XMS_ITS | Encounter Summary ---
Author Organization [facility] Address [address] [facility] Attn: [place] [address] Care Team Providers Care Video Game Engineer Name Role Phone Rico Muñiz MD, Sharan Jaime Primary Care Provider Encounter Details Date Type Department Care Team (Late st Contact Info) Description 07/23/2002 Outpatient Historical Екатерина Malone MD [address] [place] [address] Social History Tobacco Use Types Packs/Day Years Used Date Smoking Tobacco: Never Assessed Comments Unknown Sex and Gender Information Value Date Recorded Sex Assigned at Not on file Legal Sex Female 5:42 AM SPOUT LINER HELPER Gender Identity Not on file Sexual Orientation Not on file documented as of this encounter Plan of Treatment Not on file documented as of this encounter Visit Diagnoses Not on filedocumented in this encounter Care Teams Video Game Engineer Relationship Specialty Start Date End Date Sharan Gómez Jr., MD [address] [place] [address] PCP - General 08/10/05 documented as of this encounter
--- OUTSIDE RECORDS SUMMARY | 2025-08-15 22:54 | XMS_ITS | Encounter Summary ---
Author Organization [facility] Address [address] [place] [address] Care Team Providers Care Supervisor Dry Cell Assembly Name Role Phone Rico Muñiz MD, Sharan Jaime Primary Care Provider Encounter Details Date Type Department Care Team (Latest Contact Info) Description 07/04/[address] [facility] Int Luis AFaisal Lopez [place]wen [address] [place] [address] Serge Arrington MD [address] [place] [address] Mitral valve disorder (Primary Dx); HYPERTENSION NOS; ABN FIND-STOOL CONTENTS-OCC BLOOD; SCREENING MAL NEOP-CERVIX Social History Tobacco Use Types Packs/Day Years Used Date Smoking Tobacco: Never Assessed Comments Unknown Sex and Gender Information Value Date Recorded Sex Assigned at Not on file Legal Sex Female 5:42 AM LOGISTICS LEAD Gender Identity Not on file Sexual Orientation Not on file documented as of this encounter Plan of Treatment Not on file documented as of this encounter Visit Diagnoses Diagnosis Mitral valve disorder- Primary Mitral valve disorders Unspecified essential hypertension Nonspecific abnormal finding in stool contents Screening for malignant neoplasm of the cervix documented in this encounter Care Teams Supervisor Dry Cell Assembly Relationship Specialty Start Date End Date Sharan Gómez Jr., MD [address] [place] [address] PCP - General 08/10/05 documented as of this encounter
--- OUTSIDE RECORDS SUMMARY | 2025-08-15 22:54 | XMS_ITS | Encounter Summary ---
Author Organization [facility] Address [address] [place] [address] Care Team Providers Care Curator Name Role Phone Rico Muñiz MD, Sharan Jaime Primary Care Provider Encounter Details Date Type Department Care Team (Latest Contact Info) Description 08/06/2006 Outpatient Historical [facility] Int Luis AFaisal Lopez [place] [address] [place] [address] Serge Arrington MD [address] [place] [address] Routine Gynecological Examination (Primary Dx) Social History Tobacco Use Types Packs/Day Years Used Date Smoking Tobacco: Never Assessed Comments Unknown Sex and Gender Information Value Date Recorded Sex Assigned at Not on file Legal Sex Female 5:42 AM 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
--- OUTSIDE RECORDS SUMMARY | 2025-08-15 22:54 | XMS_ITS | Encounter Summary ---
Author Organization [facility] Address [address] [place] [address] Care Team Providers Care Seamer Operator Name Role Phone Rico Muñiz MD, Sharan Jaime Primary Care Provider Encounter Details Date Type Department Care Team (Latest Contact Info) Description 07/04/2005 Outpatient Historical [facility] Services-Faisal Lopez Michelle [address] [place] [address] Serge Arrington MD [address] [place] [address] HYPERTENSION NOS (Primary Dx) Social History Tobacco Use Types Packs/Day Years Used Date Smoking Tobacco: Never Assessed Comments Unknown Sex and Gender Information Value Date Recorded Sex Assigned at Not on file Legal Sex Female 5:42 AM ENVELOPE STUFFER Gender Identity Not on file Sexual Orientation Not on file documented as of this encounter Plan of Treatment Not on file documented as of this encounter Visit Diagnoses Diagnosis Unspecified essential hypertension- Primary documented in this encounter Care Teams Seamer Operator Relationship Specialty Start Date End Date Sharan Gómez Jr., MD [address] [facility] [place] [address] PCP - General 08/10/05 documented as of this encounter
--- OUTSIDE RECORDS SUMMARY | 2025-08-15 22:54 | XMS_ITS | Encounter Summary ---
Author Organization [facility] Address [address] [facility] Attn: [place] [address] Care Team Providers Care Retail Field Representative Name Role Phone Rico Muñiz MD, Sharan Jaime Primary Care Provider Encounter Details Date Type Department Care Team (Late st Contact Info) Description 04/23/2002 Outpatient Historical Sharan Gómez Jr., MD [address] [place] [address] Social History Tobacco Use Types Packs/Day Years Used Date Smoking Tobacco: Never Assessed Comments Unknown Sex and Gender Information Value Date Recorded Sex Assigned at Not on file Legal Sex Female 5:42 AM CABLE TOOL DRILLER Gender Identity Not on file Sexual Orientation Not on file documented as of this encounter Plan of Treatment Not on file documented as of this encounter Visit Diagnoses Not on filedocumented in this encounter Care Teams Retail Field Representative Relationship Specialty Start Date End Date Sharan Gómez Jr., MD [address] [place] [address] PCP - General 08/10/05 documented as of this encounter
--- OUTSIDE RECORDS SUMMARY | 2025-08-15 22:54 | XMS_ITS | Encounter Summary ---
Author Organization [facility] Address [address] [place] [address] Care Team Providers Care Embedder Name Role Phone Rico Muñiz MD, Sharan Jaime Primary Care Provider Encounter Details Date Type Department Care Team (Latest Contact Info) Description 02/25/1999 Outpatient Historical [facility] Sharan Gómez Jr., MD [address] [place] [address] Dietary surveil/high school guidance counselor (Primary Dx) Social History Tobacco Use Types Packs/Day Years Used Date Smoking Tobacco: Never Assessed Comments Unknown Sex and Gender Information Value Date Recorded Sex Assigned at Not on file Legal Sex Female 5:42 AM BUSINESS INSIGHT AND 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
--- OUTSIDE RECORDS SUMMARY | 2025-08-15 22:54 | XMS_ITS | Encounter Summary ---
Author Organization [facility] Address [address] [place] [address] Care Team Providers Care Tricot Knitting Machine Operator Name Role Phone Rico Muñiz MD, Sharan Jaime Primary Care Provider Encounter Details Date Type Department Care Team (Latest Contact Info) Description 07/06/2006 Outpatient Historical [facility] [address] [place] [address] Jennifer Cash MD NO ADDRESS ON FILE Unspecified Essential Hypertension (Primary Dx); Other and Unspecified Hyperlipidemia; Hypercalcemia; Routine Medical Exam Social History Tobacco Use Types Packs/Day Years Used Date Smoking Tobacco: Never Assessed Comments Unknown Sex and Gender Information Value Date Recorded Sex Assigned at Not on file Legal Sex Female 5:42 AM CHIROPRACTIC ASSISTANT Gender Identity Not on file Sexual Orientation Not on file documented as of this encounter Plan of Treatment Not on file documented as of this encounter Visit Diagnoses Diagnosis Unspecified essential hypertension- Primary Other and unspecified hyperlipidemia Hypercalcemia Routine medical exam Routine general medical examination at a health care facility documented in this encounter Care Teams Tricot Knitting Machine Operator Relationship Specialty Start Date End Date Sharan Gómez Jr., MD [address] [place] [address] PCP - General 08/10/05 documented as of this encounter
--- OUTSIDE RECORDS SUMMARY | 2025-08-15 22:54 | XMS_ITS | Encounter Summary ---
Author Organization [facility] Address [address] [place] [address] Care Team Providers Care Bulk Driver Name Role Phone Rico Muñiz MD, Sharan Jaime Primary Care Provider Encounter Details Date Type Department Care Team (Latest Contact Info) Description 08/03/2000 Outpatient Historical [facility] Sharan Gómez Jr., MD [address] [place] [address] Pure hypercholesterolem (Primary Dx); Other and unspecified hyperlipidemia; Dietary surveil/cemetery counselor Social History Tobacco Use Types Packs/Day Years Used Date Smoking Tobacco: Never Assessed Comments Unknown Sex and Gender Information Value Date Recorded Sex Assigned at Not on file Legal Sex Female 5:42 AM QUARRYING SPECIALIST Gender Identity Not on file Sexual Orientation Not on file documented as of this encounter Plan of Treatment Not on file documented as of this encounter Visit Diagnoses Diagnosis Pure hypercholesterolem- Primary Pure hypercholesterolemia Other and unspecified hyperlipidemia Dietary surveil/cemetery counselor Dietary surveillance and counseling documented in this encounter Care Teams Bulk Driver Relationship Specialty Start Date End Date Sharan Gómez Jr., MD [address] [place] [address] PCP - General 08/10/05 documented as of this encounter
--- OUTSIDE RECORDS SUMMARY | 2025-08-15 22:54 | XMS_ITS | Encounter Summary ---
Author Organization [facility] Address [address] [facility] [address] Attn: [place] [address] Care Team Providers Care Associate Manager Affiliate Marketing Name Role Phone Rico Muñiz MD, Sharan Jaime Primary Care Provider Encounter Details Date Type Department Care Team (Late st Contact Info) Description 05/16/2001 Outpatient Historical Sharan Gómez Jr., MD [address] [place] [address] Social History Tobacco Use Types Packs/Day Years Used Date Smoking Tobacco: Never Assessed Comments Unknown Sex and Gender Information Value Date Recorded Sex Assigned at Not on file Legal Sex Female 5:42 AM SHAKE BACKBOARD 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
--- OUTSIDE RECORDS SUMMARY | 2025-08-15 22:54 | XMS_ITS | Encounter Summary ---
Author Organization [facility] Address [address] [facility] Attn: [place] [address] Care Team Providers Care Soft Work Cigar Machine Operator Name Role Phone Rico Muñiz MD, Sharan Jaime Primary Care Provider Encounter Details Date Type Department Care Team (Late st Contact Info) Description 04/07/2002 Outpatient Historical Sharan Gómez Jr., MD [address] [place] [address] Social History Tobacco Use Types Packs/Day Years Used Date Smoking Tobacco: Never Assessed Comments Unknown Sex and Gender Information Value Date Recorded Sex Assigned at Not on file Legal Sex Female 5:42 AM QUALITY CONTROL AUDITOR Gender Identity Not on file Sexual Orientation Not on file documented as of this encounter Plan of Treatment Not on file documented as of this encounter Visit Diagnoses Not on filedocumented in this encounter Care Teams Soft Work Cigar Machine Operator Relationship Specialty Start Date End Date Sharan Gómez Jr., MD [address] [place] [address] PCP - General 08/10/05 documented as of this encounter
--- OUTSIDE RECORDS SUMMARY | 2025-08-15 22:54 | XMS_ITS | Encounter Summary ---
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
--- OUTSIDE RECORDS SUMMARY | 2025-08-15 22:54 | XMS_ITS | Encounter Summary ---
Author Organization [facility] Address [address] [place] [address] Care Team Providers Care Paper Rewinder Operator Name Role Phone Rico Muñiz MD, Sharan Jaime Primary Care Provider Encounter Details Date Type Department Care Team (Latest Contact Info) Description 09/05/2001 Outpatient Historical [facility] Sharan Gómez Jr., MD [address] [place] [address] OSTEOARTHROS NOS-UNSPEC (Primary Dx); OSTEOPOROSIS NOS Social History Tobacco Use Types Packs/Day Years Used Date Smoking Tobacco: Never Assessed Comments Unknown Sex and Gender Information Value Date Recorded Sex Assigned at Not on file Legal Sex Female 5:42 AM TECHNOLOGY RISK INTERN Gender Identity Not on file Sexual Orientation Not on file documented as of this encounter Plan of Treatment Not on file documented as of this encounter Visit Diagnoses Diagnosis Osteoarthrosis, unspecified whether generalized or localized, unspecified site- Primary Osteoporosis, unspecified documented in this encounter Care Teams Paper Rewinder Operator Relationship Specialty Start Date End Date Sharan Gómez Jr., MD [address] [place] [address] PCP - General 08/10/05 documented as of this encounter
--- OUTSIDE RECORDS SUMMARY | 2025-08-15 22:54 | XMS_ITS | Encounter Summary ---
Author Organization [facility] Address [address] [place] [address] Care Team Providers Care Senior Market Intelligence Consultant Name Role Phone Rico Muñiz MD, Sharan Jaime Primary Care Provider Encounter Details Date Type Department Care Team (Latest Contact Info) Description 01/03/2002 Outpatient Historical [facility] Sharan Gómez Jr., MD [address] [place] [address] FLU W RESP MANIFEST NEC (Primary Dx); [facility] ANTICOAG USE Social History Tobacco Use Types Packs/Day Years Used Date Smoking Tobacco: Never Assessed Comments Unknown Sex and Gender Information Value Date Recorded Sex Assigned at Not on file Legal Sex Female 5:42 AM CLEAN UP PERSON Gender Identity Not on file Sexual Orientation Not on file documented as of this encounter Plan of Treatment Not on file documented as of this encounter Visit Diagnoses Diagnosis Influenza with other respiratory manifestations- Primary snf (current) use of anticoagulants Long-term (current) use of anticoagulants documented in this encounter Care Teams Senior Market Intelligence Consultant Relationship Specialty Start Date End Date Sharan Gómez Jr., MD [address] [place] [address] PCP - General 08/10/05 documented as of this encounter
--- OUTSIDE RECORDS SUMMARY | 2025-08-15 22:54 | XMS_ITS | Encounter Summary ---
Author Organization [facility] Address [address] [facility] Attn: [place] [address] Care Team Providers Care Veneer Marker Name Role Phone Rico Muñiz MD, Sharan Jaime Primary Care Provider Encounter Details Date Type Department Care Team (Late st Contact Info) Description 06/22/2000 Outpatient Historical Serge Arrington MD [address] [facility] [address] [place] [address] Social History Tobacco Use Types Packs/Day Years Used Date Smoking Tobacco: Never Assessed Comments Unknown Sex and Gender Information Value Date Recorded Sex Assigned at Not on file Legal Sex Female 5:42 AM GROUND SUPPORT AGENT Gender Identity Not on file Sexual Orientation Not on file documented as of this encounter Plan of Treatment Not on file documented as of this encounter Visit Diagnoses Not on filedocumented in this encounter Care Teams Veneer Marker Relationship Specialty Start Date End Date Sharan Gómez Jr., MD [address] [place] [address] PCP - General 08/10/05 documented as of this encounter
--- OUTSIDE RECORDS SUMMARY | 2025-08-15 22:54 | XMS_ITS | Encounter Summary ---
Author Organization [facility] Address [address] [place] [address] Care Team Providers Care Reservoir Engineering Consultant Name Role Phone Rico Muñiz MD, Sharan Jaime Primary Care Provider Encounter Details Date Type Department Care Team (Late st Contact Info) Description 07/02/2001 Outpatient Historical [facility] Serge Arrington MD [address] [facility] [address] [place] [address] Encounter for long-term (current) use of other medications (Primary Dx); Unspecified essential hypertension Social History Tobacco Use Types Packs/Day Years Used Date Smoking Tobacco: Never Assessed Comments Unknown Sex and Gender Information Value Date Recorded Sex Assigned at Not on file Legal Sex Female 5:42 AM CASE MANAGERS Gender Identity Not on file Sexual Orientation Not on file documented as of this encounter Plan of Treatment Not on file documented as of this encounter Visit Diagnoses Diagnosis Encounter for long-term (current) use of other medications- Primary Unspecified essential hypertension documented in this encounter Care Teams Reservoir Engineering Consultant Relationship Specialty Start Date End Date Sharan Gómez Jr., MD [address] [place] [address] PCP - General 08/10/05 documented as of this encounter
--- OUTSIDE RECORDS SUMMARY | 2025-08-15 22:54 | XMS_ITS | Encounter Summary ---
Author Organization [facility] Address [address] [place] [address] Care Team Providers Care Binding Cutter Synthetic Cloth Name Role Phone Rico Muñiz MD, Sharan Jaime Primary Care Provider Encounter Details Date Type Department Care Team (Latest Contact Info) Description 10/31/2001 Outpatient Historical [facility] Sharan Gómez Jr., MD [address] [place] [address] ATRIAL FIBRILLATION (CMS/HCC) (Primary Dx); [facility] ANTICOAG USE; HEART VALVE REPLAC NEC Social History Tobacco Use Types Packs/Day Years Used Date Smoking Tobacco: Never Assessed Comments Unknown Sex and Gender Information Value Date Recorded Sex Assigned at Not on file Legal Sex Female 5:42 AM CLEARANCE CENTER MANAGER Gender Identity Not on file Sexual Orientation Not on file documented as of this encounter Plan of Treatment Not on file documented as of this encounter Visit Diagnoses Diagnosis Atrial fibrillation (CMS/HCC)- Primary Atrial fibrillation vermin exterminator (current) use of anticoagulants Long-term (current) use of anticoagulants Heart valve replaced by other means documented in this encounter Care Teams Binding Cutter Synthetic Cloth Relationship Specialty Start Date End Date Sharan Gómez Jr., MD [address] [place] [address] PCP - General 08/10/05 documented as of this encounter
--- OUTSIDE RECORDS SUMMARY | 2025-08-15 22:54 | XMS_ITS | Encounter Summary ---
Author Organization [facility] Address [address] [place] [address] Care Team Providers Care Is Analyst Name Role Phone Rico Muñiz MD, Sharan Jaime Primary Care Provider Encounter Details Date Type Department Care Team (Late st Contact Info) Description 10/14/2020 Lab Requisition [facility] Services [address] [place] [address] Paulina Peterson MD [address] [place] [address] Social History Tobacco Use Types Packs/Day Years Used Date Smoking Tobacco: Never Assessed Comments Unknown Sex and Gender Information Value Date Recorded Sex Assigned at Not on file Legal Sex Female 5:42 AM PICKLING TANK OPERATOR Gender Identity Not on file Sexual Orientation Not on file documented as of this encounter Plan of Treatment Not on file documented as of this encounter Procedures Procedure Name Priority Date/Time Associated Diagnosis Comments PROTIME-INR Routine 10/14/2020 6:16 AM PICKLING TANK OPERATOR documented in this encounter Results * (ABNORMAL) PROTIME-INR (10/14/2020 6:16 AM PICKLING TANK OPERATOR) PROTIME 43.3(H) 11.9 - 15.5 Seconds 10/14/2020 4:10 PM PICKLING TANK OPERATOR [facility] INR 4.4(H) 0.8 - 1.2 10/14/2020 4:10 PM PICKLING TANK OPERATOR [facility] Blood Collection / Unknown 10/14/2020 6:16 AM PICKLING TANK OPERATOR 10/14/2020 3:45 PM PICKLING TANK OPERATOR Narrative [facility] - 10/14/2020 4:10 PM PICKLING TANK OPERATOR Expected Values for INR: DVT/PE Goal [...] MD HEMATOLOGY ORDERABLES Maame smart Result [facility] [address] [place] [address] documented in this encounter Visit Diagnoses Not on filedocumented in this encounter Care Teams Is Analyst Relationship Specialty Start Date End Date Sharan Gómez Jr., MD [address] [place] [address] PCP - General 08/10/05 documented as of this encounter
--- OUTSIDE RECORDS SUMMARY | 2025-08-15 22:54 | XMS_ITS | Encounter Summary ---
Author Organization [facility] Address [address] [place] [address] Care Team Providers Care Automatic Typewriter Inspector Name Role Phone Rico Muñiz MD, Sharan Jaime Primary Care Provider Encounter Details Date Type Department Care Team (Latest Contact Info) Description 10/15/1998 Outpatient Historical [facility] Sharan Gómez Jr., MD [address] [place] [address] Unspecified essential hypertension (Primary Dx); Hypopotassemia; custodial (current) use of anticoagulants Social History Tobacco Use Types Packs/Day Years Used Date Smoking Tobacco: Never Assessed Comments Unknown Sex and Gender Information Value Date Recorded Sex Assigned at Not on file Legal Sex Female 5:42 AM REFERENCE DATA EXPERT Gender Identity Not on file Sexual Orientation Not on file documented as of this encounter Plan of Treatment Not on file documented as of this encounter Visit Diagnoses Diagnosis Unspecified essential hypertension- Primary Hypopotassemia ferry terminal 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
--- OUTSIDE RECORDS SUMMARY | 2025-08-15 22:54 | XMS_ITS | Encounter Summary ---
Author Organization [facility] Address [address] [place] [address] Care Team Providers Care Title I Director Name Role Phone Rico Muñiz MD, Sharan Jaime Primary Care Provider Encounter Details Date Type Department Care Team (Latest Contact Info) Description 04/19/2001 Outpatient Historical [facility] Arun Nichols NO ADDRESS ON FILE Contusion of hand(s) (Primary Dx) Social History Tobacco Use Types Packs/Day Years Used Date Smoking Tobacco: Never Assessed Comments Unknown Sex and Gender Information Value Date Recorded Sex Assigned at Not on file Legal Sex Female 5:42 AM CREATIVE MANAGER Gender Identity Not on file Sexual Orientation Not on file documented as of this encounter Plan of Treatment Not on file documented as of this encounter Visit Diagnoses Diagnosis Contusion of hand(s)- Primary documented in this encounter Care Teams Title I Director Relationship Specialty Start Date End Date Sharan Gómez Jr., MD [address] [place] [address] PCP - General 08/10/05 documented as of this encounter
--- OUTSIDE RECORDS SUMMARY | 2025-08-15 22:54 | XMS_ITS | Encounter Summary ---
Author Organization [facility] Address [address] [place] [address] Care Team Providers Care Sharepoint Admin Name Role Phone Rico Muñiz MD, Sharan Jaime Primary Care Provider Encounter Details Date Type Department Care Team (Latest Contact Info) Description 06/29/2004 Outpatient Historical [facility] Int Luis AFaisal Lopez [place] [place] [address] Serge Arrington MD [address] [place] [address] Mitral valve disorder (Primary Dx); HYPERTENSION NOS; HYPERLIPIDEMIA NEC/NOS; OSTEOPOROSIS NOS Social History Tobacco Use Types Packs/Day Years Used Date Smoking Tobacco: Never Assessed Comments Unknown Sex and Gender Information Value Date Recorded Sex Assigned at Not on file Legal Sex Female 5:42 AM AUTOMOTIVE STARTER REPAIRER Gender Identity Not on file Sexual Orientation Not on file documented as of this encounter Plan of Treatment Not on file documented as of this encounter Visit Diagnoses Diagnosis Mitral valve disorder- Primary Mitral valve disorders Unspecified essential hypertension Other and unspecified hyperlipidemia Osteoporosis, unspecified documented in this encounter Care Teams Sharepoint Admin Relationship Specialty Start Date End Date Sharan Gómez Jr., MD [address] [place] [phone] PCP - General 08/10/05 documented as of this encounter
--- OUTSIDE RECORDS SUMMARY | 2025-08-15 22:54 | XMS_ITS | Encounter Summary ---
Author Organization [facility] Address [address] [place] [address] Care Team Providers Care Loader Operator Supervisor Name Role Phone Rico Muñiz MD, Sharan Jaime Primary Care Provider Encounter Details Date Type Department Care Team (Latest Contact Info) Description 02/16/1999 Outpatient Historical [facility] Sharan Gómez Jr., MD [address] [place] [address] Unspecified essential hypertension (Primary Dx); intermediate (current) use of anticoagulants Social History Tobacco Use Types Packs/Day Years Used Date Smoking Tobacco: Never Assessed Comments Unknown Sex and Gender Information Value Date Recorded Sex Assigned at Not on file Legal Sex Female 5:42 AM STAMPING DIE MAKER BENCH Gender Identity Not on file Sexual Orientation Not on file documented as of this encounter Plan of Treatment Not on file documented as of this encounter Visit Diagnoses Diagnosis Unspecified essential hypertension- Primary intermediate (current) use of anticoagulants Long-term (current) use of anticoagulants documented in this encounter Care Teams Loader Operator Supervisor Relationship Specialty Start Date End Date Sharan Gómez Jr., MD [address] [place] [address] PCP - General 08/10/05 documented as of this encounter
--- OUTSIDE RECORDS SUMMARY | 2025-08-15 22:54 | XMS_ITS | Encounter Summary ---
Author Organization [facility] Address [address] [place] [address] Care Team Providers Care Nursery Technician Name Role Phone Rico Muñiz MD, Sharan Jaime Primary Care Provider Encounter Details Date Type Department Care Team (Latest Contact Info) Description 11/05/2006 Outpatient Historical [facility] Int Luis AFaisal Lopez [place] [place] [address] Serge Arrington MD [address] [place] [address] Mitral Valve Disorder (Primary Dx); Unspecified Essential Hypertension; Other and Unspecified Hyperlipidemia Social History Tobacco Use Types Packs/Day Years Used Date Smoking Tobacco: Never Assessed Comments Unknown Sex and Gender Information Value Date Recorded Sex Assigned at Not on file Legal Sex Female 5:42 AM CORN SHUCKER Gender Identity Not on file Sexual Orientation Not on file documented as of this encounter Plan of Treatment Not on file documented as of this encounter Visit Diagnoses Diagnosis Mitral valve disorder- Primary Mitral valve disorders Unspecified essential hypertension Other and unspecified hyperlipidemia documented in this encounter Care Teams Nursery Technician Relationship Specialty Start Date End Date Sharan Gómez Jr., MD [address] [place] [address] PCP - General 08/10/05 documented as of this encounter
--- OUTSIDE RECORDS SUMMARY | 2025-08-15 22:54 | XMS_ITS | Encounter Summary ---
Author Organization [facility] Address [address] [place] [address] Care Team Providers Care Awning Hanger Helper Name Role Phone Rico Muñiz MD, Sharan Jaime Primary Care Provider Encounter Details Date Type Department Care Team (Late st Contact Info) Description 10/15/2020 Lab Requisition [facility] Services [address] [place] [address] Paulina Peterson MD [address] [place] [address] Social History Tobacco Use Types Packs/Day Years Used Date Smoking Tobacco: Never Assessed Comments Unknown Sex and Gender Information Value Date Recorded Sex Assigned at Not on file Legal Sex Female 5:42 AM CORRECTION OFFICER SUPERVISOR Gender Identity Not on file Sexual Orientation Not on file documented as of this encounter Plan of Treatment Not on file documented as of this encounter Procedures Procedure Name Priority Date/Time Associated Diagnosis Comments PROTIME-INR Routine 10/15/2020 4:40 AM CORRECTION OFFICER SUPERVISOR documented in this encounter Results * (ABNORMAL) PROTIME-INR (10/15/2020 4:40 AM CORRECTION OFFICER SUPERVISOR) PROTIME 46.6(H) 11.9 - 15.5 Seconds 10/15/2020 4:26 PM CORRECTION OFFICER SUPERVISOR [facility] INR 4.9(H) 0.8 - 1.2 10/15/2020 4:26 PM CORRECTION OFFICER SUPERVISOR [facility] Blood Collection / Unknown 10/15/2020 4:40 AM CORRECTION OFFICER SUPERVISOR 10/15/2020 4:01 PM CORRECTION OFFICER SUPERVISOR Narrative [facility] - 10/15/2020 4:26 PM CORRECTION OFFICER SUPERVISOR Expected Values for INR: DVT/PE Goal INR [...] HEMATOLOGY ORDERABLES Maame smart Result [facility] [address] [place] [address] documented in this encounter Visit Diagnoses Not on filedocumented in this encounter Care Teams Awning Hanger Helper Relationship Specialty Start Date End Date Sharan Gómez Jr., MD [address] [place] [address] PCP - General 08/10/05 documented as of this encounter
--- OUTSIDE RECORDS SUMMARY | 2025-08-15 22:54 | XMS_ITS | Encounter Summary ---
Author Organization [facility] Address [address] [place] [address] Care Team Providers Care Supply Chain Engineer Name Role Phone Rico Muñiz MD, Sharan Jaime Primary Care Provider Encounter Details Date Type Department Care Team (Latest Contact Info) Description 12/20/2001 Outpatient Historical [facility] Sharan Gómez Jr., MD [address] [place] [address] WHEEZING (Primary Dx); HEART VALVE REPLAC NEC; [facility] ANTICOAG USE Social History Tobacco Use Types Packs/Day Years Used Date Smoking Tobacco: Never Assessed Comments Unknown Sex and Gender Information Value Date Recorded Sex Assigned at Not on file Legal Sex Female 5:42 AM STOKER ERECTOR AND SERVICER Gender Identity Not on file Sexual Orientation Not on file documented as of this encounter Plan of Treatment Not on file documented as of this encounter Visit Diagnoses Diagnosis Wheezing- Primary Heart valve replaced by other means intermediate (current) use of anticoagulants Long-term (current) use of anticoagulants documented in this encounter Care Teams Supply Chain Engineer Relationship Specialty Start Date End Date Sharan Gómez Jr., MD [address] [facility] [place] [address] PCP - General 08/10/05 documented as of this encounter
--- OUTSIDE RECORDS SUMMARY | 2025-08-15 22:54 | XMS_ITS | Encounter Summary ---
Author Organization [facility] Address [address] [place] [address] Care Team Providers Care Fire Hydrant Mechanic Name Role Phone Rico Muñiz MD, Sharan Jaime Primary Care Provider Encounter Details Date Type Department Care Team (Latest Contact Info) Description 06/18/1998 Outpatient Historical [facility] Int Luis AFaisal Lopez [place] [place] [address] Serge Arrington MD [address] [place] [address] Mitral valve disorder (Primary Dx); Unspecified essential hypertension; Hematuria; Routine medical exam Social History Tobacco Use Types Packs/Day Years Used Date Smoking Tobacco: Never Assessed Comments Unknown Sex and Gender Information Value Date Recorded Sex Assigned at Not on file Legal Sex Female 5:42 AM COOK CHIEF Gender Identity Not on file Sexual Orientation Not on file documented as of this encounter Plan of Treatment Not on file documented as of this encounter Visit Diagnoses Diagnosis Mitral valve disorder- Primary Mitral valve disorders Unspecified essential hypertension Hematuria Routine medical exam Routine general medical examination at a health care facility documented in this encounter Care Teams Fire Hydrant Mechanic Relationship Specialty Start Date End Date Sharan Gómez Jr., MD [address] [place] [phone] PCP - General 08/10/05 documented as of this encounter
--- OUTSIDE RECORDS SUMMARY | 2025-08-15 22:54 | XMS_ITS | Encounter Summary ---
Author Organization [facility] Address [address] [place] [address] Care Team Providers Care Community Action Worker Name Role Phone Rico Muñiz MD, Sharan Jaime Primary Care Provider Encounter Details Date Type Department Care Team (Latest Contact Info) Description 10/27/1998 Outpatient Historical [facility] Sharan Gómez Jr., MD [address] [place] [address] Unspecified essential hypertension (Primary Dx); Chest pain, unspecified; Pneumonia, organism unspecified(486) Social History Tobacco Use Types Packs/Day Years Used Date Smoking Tobacco: Never Assessed Comments Unknown Sex and Gender Information Value Date Recorded Sex Assigned at Not on file Legal Sex Female 5:42 AM RIBBON INKER Gender Identity Not on file Sexual Orientation Not on file documented as of this encounter Plan of Treatment Not on file documented as of this encounter Visit Diagnoses Diagnosis Unspecified essential hypertension- Primary Chest pain, unspecified Pneumonia, organism unspecified(486) Pneumonia, organism unspecified documented in this encounter Care Teams Community Action Worker Relationship Specialty Start Date End Date Sharan Gómez Jr., MD [address] [place] [address] PCP - General 08/10/05 documented as of this encounter
--- OUTSIDE RECORDS SUMMARY | 2025-08-15 22:54 | XMS_ITS | Encounter Summary ---
Author Organization [facility] Address [address] [place] [address] Care Team Providers Care Improvement Rn Name Role Phone Rico Muñiz MD, Sharan Jaime Primary Care Provider Encounter Details Date Type Department Care Team (Latest Contact Info) Description 07/04/2005 Outpatient Historical [facility] Int [facility] [address] [place] [place] [address] Serge Arrington MD [address] [place] [address] ROUTINE RESISTOR TESTER EXAMINATION (Primary Dx) Social History Tobacco Use Types Packs/Day Years Used Date Smoking Tobacco: Never Assessed Comments Unknown Sex and Gender Information Value Date Recorded Sex Assigned at Not on file Legal Sex Female 5:42 AM MEAT STRINGER Gender Identity Not on file Sexual Orientation Not on file documented as of this encounter Plan of Treatment Not on file documented as of this encounter Visit Diagnoses Diagnosis Routine gynecological examination- Primary documented in this encounter Care Teams Improvement Rn Relationship Specialty Start Date End Date Sharan Gómez Jr., MD [address] [place] [address] PCP - General 08/10/05 documented as of this encounter
--- OUTSIDE RECORDS SUMMARY | 2025-08-15 22:54 | XMS_ITS | Encounter Summary ---
Author Organization [facility] Address [address] [place] [address] Care Team Providers Care Motor Brakeman Name Role Phone Rico Muñiz MD, Sharan Jaime Primary Care Provider Encounter Details Date Type Department Care Team (Late st Contact Info) Description 07/30/2000 Outpatient Historical [facility] Social History Tobacco Use Types Packs/Day Years Used Date Smoking Tobacco: Never Assessed Comments Unknown Sex and Gender Information Value Date Recorded Sex Assigned at Not on file Legal Sex Female 5:42 AM LOCKMAKER Gender Identity Not on file Sexual Orientation Not on file documented as of this encounter Plan of Treatment Not on file documented as of this encounter Visit Diagnoses Not on filedocumented in this encounter Care Teams Motor Brakeman Relationship Specialty Start Date End Date Sharan Gómez Jr., MD [address] [place] [address] PCP - General 08/10/05 documented as of this encounter
--- OUTSIDE RECORDS SUMMARY | 2025-08-15 22:54 | XMS_ITS | Encounter Summary ---
Author Organization [facility] Address [address] [place] [address] Care Team Providers Care Steelworker Name Role Phone Rico Muñiz MD, Sharan Jaime Primary Care Provider Encounter Details Date Type Department Care Team (Latest Contact Info) Description 04/23/2002 Outpatient Historical [facility] Sharan Gómez Jr., MD [address] [place] [address] Pure hypercholesterolem (Primary Dx); HYPERCALCEMIA Social History Tobacco Use Types Packs/Day Years Used Date Smoking Tobacco: Never Assessed Comments Unknown Sex and Gender Information Value Date Recorded Sex Assigned at Not on file Legal Sex Female 5:42 AM DEICER INSPECTOR ELECTRIC Gender Identity Not on file Sexual Orientation Not on file documented as of this encounter Plan of Treatment Not on file documented as of this encounter Visit Diagnoses Diagnosis Pure hypercholesterolem- Primary Pure hypercholesterolemia Hypercalcemia documented in this encounter Care Teams Steelworker Relationship Specialty Start Date End Date Sharan Gómez Jr., MD [address] [place] [address] PCP - General 08/10/05 documented as of this encounter
--- OUTSIDE RECORDS SUMMARY | 2025-08-15 22:54 | XMS_ITS | Encounter Summary ---
Author Organization [facility] Address [address] [place] [address] Care Team Providers Care Shipping Processor Name Role Phone Rico Muñiz MD, Sharan Jaime Primary Care Provider Encounter Details Date Type Department Care Team (Latest Contact Info) Description 09/15/1998 Outpatient Historical [facility] Sharan Gómez Jr., MD [address] [place] [address] Unspecified essential hypertension (Primary Dx); Esophagitis, unspecified; correction (current) use of anticoagulants; Need vaccination-viral disease Social History Tobacco Use Types Packs/Day Years Used Date Smoking Tobacco: Never Assessed Comments Unknown Sex and Gender Information Value Date Recorded Sex Assigned at Not on file Legal Sex Female 5:42 AM HARDWARE TEST ENGINEER Gender Identity Not on file Sexual Orientation Not on file documented as of this encounter Plan of Treatment Not on file documented as of this encounter Visit Diagnoses Diagnosis Unspecified essential hypertension- Primary Esophagitis, unspecified correction (current) use of anticoagulants Long-term (current) use of anticoagulants Need vaccination-viral disease Need for prophylactic vaccination and inoculation against other viral diseases documented in this encounter Care Teams Shipping Processor Relationship Specialty Start Date End Date Sharan Gómez Jr., MD [address] [place] [address] PCP - General 08/10/05 documented as of this encounter
--- OUTSIDE RECORDS SUMMARY | 2025-08-15 22:54 | XMS_ITS | Encounter Summary ---
Author Organization [facility] Address [address] [place] [address] Care Team Providers Care Secretary Name Role Phone Rico Muñiz MD, Sharan Jaime Primary Care Provider Encounter Details Date Type Department Care Team (Latest Contact Info) Description 08/16/2000 Outpatient Historical [facility] Sharan Gómez Jr., MD [address] [place] [address] Pure hypercholesterolem (Primary Dx); Unspecified essential hypertension; Encounter for long-term (current) use of other medications Social History Tobacco Use Types Packs/Day Years Used Date Smoking Tobacco: Never Assessed Comments Unknown Sex and Gender Information Value Date Recorded Sex Assigned at Not on file Legal Sex Female 5:42 AM ELECTRICIAN ASSISTANT Gender Identity Not on file Sexual Orientation Not on file documented as of this encounter Plan of Treatment Not on file documented as of this encounter Visit Diagnoses Diagnosis Pure hypercholesterolem- Primary Pure hypercholesterolemia Unspecified essential hypertension Encounter for long-term (current) use of other medications documented in this encounter Care Teams Secretary Relationship Specialty Start Date End Date Sharan Gómez Jr., MD [address] [place] [address] PCP - General 08/10/05 documented as of this encounter
--- OUTSIDE RECORDS SUMMARY | 2025-08-15 22:54 | XMS_ITS | Encounter Summary ---
Author Organization [facility] Address [address] [place] [address] Care Team Providers Care Legislative Advocate Name Role Phone Rico Muñiz MD, Sharan Jaime Primary Care Provider Encounter Details Date Type Department Care Team (Latest Contact Info) Description 03/03/2002 Outpatient Historical [facility] Sharan Gómez Jr., MD [address] [place] [address] HYPERTENSION NOS (Primary Dx); ENDOCARDITIS NOS; [facility] ANTICOAG USE; FAMILY HX-DIABETES MELLITUS Social History Tobacco Use Types Packs/Day Years Used Date Smoking Tobacco: Never Assessed Comments Unknown Sex and Gender Information Value Date Recorded Sex Assigned at Not on file Legal Sex Female 5:42 AM MANAGER TRANSFER Gender Identity Not on file Sexual Orientation Not on file documented as of this encounter Plan of Treatment Not on file documented as of this encounter Visit Diagnoses Diagnosis Unspecified essential hypertension- Primary Endocarditis, valve unspecified, unspecified cause residential (current) use of anticoagulants Long-term (current) use of anticoagulants Family history of diabetes mellitus documented in this encounter Care Teams Legislative Advocate Relationship Specialty Start Date End Date Sharan Gómez Jr., MD [address] [place] [address] PCP - General 08/10/05 documented as of this encounter
--- OUTSIDE RECORDS SUMMARY | 2025-08-15 22:54 | XMS_ITS | Encounter Summary ---
Author Organization [facility] Address [address] [place] [address] Care Team Providers Care Logistics Officer Name Role Phone Rico Muñiz MD, Sharan Jaime Primary Care Provider Encounter Details Date Type Department Care Team (Latest Contact Info) Description 07/06/2003 Outpatient Historical [facility] [address] [place] [address] Екатерина Malone MD [address] [place] [address] AFTERCARE SECURITY RISK ANALYST USE MEDICATN (Primary Dx) Social History Tobacco Use Types Packs/Day Years Used Date Smoking Tobacco: Never Assessed Comments Unknown Sex and Gender Information Value Date Recorded Sex Assigned at Not on file Legal Sex Female 5:42 AM CLINICAL ESTHETICIAN Gender Identity Not on file Sexual Orientation Not on file documented as of this encounter Plan of Treatment Not on file documented as of this encounter Visit Diagnoses Diagnosis Encounter for long-term (current) use of other medications- Primary documented in this encounter Care Teams Logistics Officer Relationship Specialty Start Date End Date Sharan Gómez Jr., MD [address] [place] [address] PCP - General 08/10/05 documented as of this encounter
--- OUTSIDE RECORDS SUMMARY | 2025-08-15 22:54 | XMS_ITS | Encounter Summary ---
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 driver (current) use of anticoagulants Social History Tobacco Use Types Packs/Day Years Used Date Smoking Tobacco: Never Assessed Comments Unknown Sex and Gender Information Value Date Recorded Sex Assigned at Not on file Legal Sex Female 5:42 AM MILL MACHINIST Gender Identity Not on file Sexual Orientation Not on file documented as of this encounter Plan of Treatment Not on file documented as of this encounter Visit Diagnoses Diagnosis Acute upper respiratory infections of unspecified site- Primary Screening for other and unspecified respiratory condition Other dyspnea and respiratory abnormality long-term (current) use of anticoagulants Long-term (current) use of anticoagulants documented in this encounter Care Teams Lieutenant/Deputy Relationship Specialty Start Date End Date Sharan Gómez Jr., MD [address] [place] [address] PCP - General 08/10/05 documented as of this encounter
--- OUTSIDE RECORDS SUMMARY | 2025-08-15 22:54 | XMS_ITS | Encounter Summary ---
Author Organization [facility] Address [address] [place] [address] Care Team Providers Care Data Warehouse Consultant Name Role Phone Rico Muñiz MD, Sharan Jaime Primary Care Provider Encounter Details Date Type Department Care Team (Latest Contact Info) Description 07/06/2006 Outpatient Historical [facility] Services-Faisal Lopez Michelle [address] [place] [address] Jennifer Cash MD NO ADDRESS ON FILE Unspecified Essential Hypertension (Primary Dx); Other Chest Pain Social History Tobacco Use Types Packs/Day Years Used Date Smoking Tobacco: Never Assessed Comments Unknown Sex and Gender Information Value Date Recorded Sex Assigned at Not on file Legal Sex Female 5:42 AM POWDER MILL OPERATOR Gender Identity Not on file Sexual Orientation Not on file documented as of this encounter Plan of Treatment Not on file documented as of this encounter Visit Diagnoses Diagnosis Unspecified essential hypertension- Primary Other chest pain documented in this encounter Care Teams Data Warehouse Consultant Relationship Specialty Start Date End Date Sharan Gómez Jr., MD [address] [place] [address] PCP - General 08/10/05 documented as of this encounter
--- OUTSIDE RECORDS SUMMARY | 2025-08-15 22:54 | XMS_ITS | Encounter Summary ---
Author Organization [facility] Address [address] [place] [address] Care Team Providers Care Utility Lineman Name Role Phone Rico Muñiz MD, Sharan Jaime Primary Care Provider Encounter Details Date Type Department Care Team (Latest Contact Info) Description 07/02/2001 Outpatient Historical [facility] Echocardiography - National [address] [place] [phone] X358 Social History Tobacco Use Types Packs/Day Years Used Date Smoking Tobacco: Never Assessed Comments Unknown Sex and Gender Information Value Date Recorded Sex Assigned at Not on file Legal Sex Female 5:42 AM SET UP / OPERATOR Gender Identity Not on file Sexual Orientation Not on file documented as of this encounter Plan of Treatment Not on file documented as of this encounter Visit Diagnoses Not on filedocumented in this encounter Care Teams Utility Lineman Relationship Specialty Start Date End Date Sharan Gómez Jr., MD [address] [place] [address] PCP - General 08/10/05 documented as of this encounter
--- OUTSIDE RECORDS SUMMARY | 2025-08-15 22:54 | XMS_ITS | Encounter Summary ---
Author Organization [facility] Address [address] [place] [address] Care Team Providers Care Building Tech Name Role Phone Rico Muñiz MD, Sharan Jaime Primary Care Provider Encounter Details Date Type Department Care Team (Latest Contact Info) Description 12/13/1998 Outpatient Historical [facility] Sharan Gómez Jr., MD [address] [place] [address] Acute upper respiratory infections of unspecified site (Primary Dx); vermin exterminator (current) use of anticoagulants Social History Tobacco Use Types Packs/Day Years Used Date Smoking Tobacco: Never Assessed Comments Unknown Sex and Gender Information Value Date Recorded Sex Assigned at Not on file Legal Sex Female 5:42 AM ROUTE DRIVER Gender Identity Not on file Sexual Orientation Not on file documented as of this encounter Plan of Treatment Not on file documented as of this encounter Visit Diagnoses Diagnosis Acute upper respiratory infections of unspecified site- Primary vermin exterminator (current) use of anticoagulants Long-term (current) use of anticoagulants documented in this encounter Care Teams Building Tech Relationship Specialty Start Date End Date Sharan Gómez Jr., MD [address] [place] [address] PCP - General 08/10/05 documented as of this encounter
--- OUTSIDE RECORDS SUMMARY | 2025-08-15 22:54 | XMS_ITS | Encounter Summary ---
Author Organization [facility] Address [address] [place] [address] Care Team Providers Care Stock Receiver Name Role Phone Rico Muñiz MD, Sharan Jaime Primary Care Provider Encounter Details Date Type Department Care Team (Latest Contact Info) Description 01/14/1999 Outpatient Historical [facility] Sharan Gómez Jr., MD [address] [place] [address] Spasm of muscle (Primary Dx) Social History Tobacco Use Types Packs/Day Years Used Date Smoking Tobacco: Never Assessed Comments Unknown Sex and Gender Information Value Date Recorded Sex Assigned at Not on file Legal Sex Female 5:42 AM SALES REPRESENTATIVE SUPERVISOR Gender Identity Not on file Sexual Orientation Not on file documented as of this encounter Plan of Treatment Not on file documented as of this encounter Visit Diagnoses Diagnosis Spasm of muscle- Primary documented in this encounter Care Teams Stock Receiver Relationship Specialty Start Date End Date Sharan Gómez Jr., MD [address] [place] [address] PCP - General 08/10/05 documented as of this encounter
--- OUTSIDE RECORDS SUMMARY | 2025-08-15 22:54 | XMS_ITS | Encounter Summary ---
Author Organization [facility] Address [address] [place] [address] Care Team Providers Care Deckhand Maintenance Name Role Phone Rico Muñiz MD, Sharan Jaime Primary Care Provider Encounter Details Date Type Department Care Team (Latest Contact Info) Description 05/16/2001 Outpatient Historical [facility] Sharan Gómez Jr., MD [address] [place] [address] Unspecified essential hypertension (Primary Dx); penitentiary (current) use of anticoagulants Social History Tobacco Use Types Packs/Day Years Used Date Smoking Tobacco: Never Assessed Comments Unknown Sex and Gender Information Value Date Recorded Sex Assigned at Not on file Legal Sex Female 5:42 AM ALLERGIST IMMUNOLOGIST Gender Identity Not on file Sexual Orientation Not on file documented as of this encounter Plan of Treatment Not on file documented as of this encounter Visit Diagnoses Diagnosis Unspecified essential hypertension- Primary penitentiary (current) use of anticoagulants Long-term (current) use of anticoagulants documented in this encounter Care Teams Deckhand Maintenance Relationship Specialty Start Date End Date Sharan Gómez Jr., MD [address] [place] [address] PCP - General 08/10/05 documented as of this encounter
--- OUTSIDE RECORDS SUMMARY | 2025-08-15 22:54 | XMS_ITS | Encounter Summary ---
Author Organization [facility] Address [address] [place] [address] Care Team Providers Care Ticketing Agent Name Role Phone Rico Muñiz MD, Sharan Jaime Primary Care Provider Encounter Details Date Type Department Care Team (Latest Contact Info) Description 04/07/2002 Outpatient Historical [facility] Sharan Gómez Jr., MD [address] [place] [address] ENDOCARDITIS NOS (Primary Dx); DIABETES UNCOMPL ADULT-TYPE II (CMS/HCC); HYPERTENSION NOS; [facility] ANTICOAG USE Social History Tobacco Use Types Packs/Day Years Used Date Smoking Tobacco: Never Assessed Comments Unknown Sex and Gender Information Value Date Recorded Sex Assigned at Not on file Legal Sex Female 5:42 AM DEMOLITION WORKER Gender Identity Not on file Sexual Orientation Not on file documented as of this encounter Plan of Treatment Not on file documented as of this encounter Visit Diagnoses Diagnosis Endocarditis, valve unspecified, unspecified cause- Primary Type II or unspecified type diabetes mellitus without mention of complication, not stated as uncontrolled Unspecified essential hypertension custodial (current) use of anticoagulants Long-term (current) use of anticoagulants documented in this encounter Care Teams Ticketing Agent Relationship Specialty Start Date End Date Sharan Gómez Jr., MD [address] [place] [address] PCP - General 08/10/05 documented as of this encounter
--- OUTSIDE RECORDS SUMMARY | 2025-08-15 22:55 | XMS_ITS | Encounter Summary ---
Author Organization [facility] Address [address] [place] [address] Care Team Providers Care Workers' Compensation Mediator Name Role Phone Rico Muñiz MD, Sharan Jaime Primary Care Provider Encounter Details Date Type Department Care Team (Latest Contact Info) Description 02/29/2000 Outpatient Historical [facility] Sharan Gómez Jr., MD [address] [place] [address] Pure hypercholesterolem (Primary Dx); Heart valve replaced by other means; Osteoporosis, unspecified; group home (current) use of anticoagulants Social History Tobacco Use Types Packs/Day Years Used Date Smoking Tobacco: Never Assessed Comments Unknown Sex and Gender Information Value Date Recorded Sex Assigned at Not on file Legal Sex Female 5:42 AM TRACK SERVICE WORKER Gender Identity Not on file Sexual Orientation Not on file documented as of this encounter Plan of Treatment Not on file documented as of this encounter Visit Diagnoses Diagnosis Pure hypercholesterolem- Primary Pure hypercholesterolemia Heart valve replaced by other means Osteoporosis, unspecified group home (current) use of anticoagulants Long-term (current) use of anticoagulants documented in this encounter Care Teams Workers' Compensation Mediator Relationship Specialty Start Date End Date Sharan Gómez Jr., MD [address] [place] [phone] PCP - General 08/10/05 documented as of this encounter
--- OUTSIDE RECORDS SUMMARY | 2025-08-15 22:55 | XMS_ITS | Encounter Summary ---
Author Organization [facility] Address [address] [place] [address] Care Team Providers Care Margin Trimmer Name Role Phone Rico Muñiz MD, Sharan Jaime Primary Care Provider Encounter Details Date Type Department Care Team (Latest Contact Info) Description 04/18/1999 Outpatient Historical [facility] Sharan Gómez Jr., MD [address] [place] [address] Headache(784.0) (Primary Dx); Unspecified essential hypertension; termite inspector (current) use of anticoagulants Social History Tobacco Use Types Packs/Day Years Used Date Smoking Tobacco: Never Assessed Comments Unknown Sex and Gender Information Value Date Recorded Sex Assigned at Not on file Legal Sex Female 5:42 AM COMMUTATOR PRESSER Gender Identity Not on file Sexual Orientation Not on file documented as of this encounter Plan of Treatment Not on file documented as of this encounter Visit Diagnoses Diagnosis Headache(784.0)- Primary Headache Unspecified essential hypertension longterm (current) use of anticoagulants Long-term (current) use of anticoagulants documented in this encounter Care Teams Margin Trimmer Relationship Specialty Start Date End Date Sharan Gómez Jr., MD [address] [place] [address] PCP - General 08/10/05 documented as of this encounter
--- OUTSIDE RECORDS SUMMARY | 2025-08-15 22:55 | XMS_ITS | Encounter Summary ---
Author Organization [facility] Address [address] [place] [address] Care Team Providers Care Geriatric Physical Therapist Name Role Phone Rico Muñiz MD, Sharan Jaime Primary Care Provider Encounter Details Date Type Department Care Team (Latest Contact Info) Description 01/30/2001 Outpatient Historical [facility] Sharan Gómez Jr., MD [address] [place] [address] Endocarditis, valve unspecified, unspecified cause (Primary Dx); Acute sinusitis, unspecified; Bronchitis, not specified as acute or chronic Social History Tobacco Use Types Packs/Day Years Used Date Smoking Tobacco: Never Assessed Comments Unknown Sex and Gender Information Value Date Recorded Sex Assigned at Not on file Legal Sex Female 5:42 AM MASONRY TEACHER Gender Identity Not on file Sexual Orientation Not on file documented as of this encounter Plan of Treatment Not on file documented as of this encounter Visit Diagnoses Diagnosis Endocarditis, valve unspecified, unspecified cause- Primary Acute sinusitis, unspecified Bronchitis, not specified as acute or chronic documented in this encounter Care Teams Geriatric Physical Therapist Relationship Specialty Start Date End Date Sharan Gómez Jr., MD [address] [place] [address] PCP - General 08/10/05 documented as of this encounter
--- OUTSIDE RECORDS SUMMARY | 2025-08-15 22:55 | XMS_ITS | Encounter Summary ---
Author Organization [facility] Address [address] [place] [address] Care Team Providers Care Geodesy Teacher Name Role Phone Rico Muñiz MD, Sharan Jaime Primary Care Provider Encounter Details Date Type Department Care Team (Late st Contact Info) Description 10/25/2020 Lab Requisition [facility] Laboratory Services [address] [place] [address] Paulina Peterson MD [address] [place] [address] Social History Tobacco Use Types Packs/Day Years Used Date Smoking Tobacco: Never Assessed Comments Unknown Sex and Gender Information Value Date Recorded Sex Assigned at Not on file Legal Sex Female 5:42 AM WELL REACTIVATOR OPERATOR Gender Identity Not on file Sexual Orientation Not on file documented as of this encounter Plan of Treatment Not on file documented as of this encounter Procedures Procedure Name Priority Date/Time Associated Diagnosis Comments PROTIME-INR Routine 10/25/2020 5:18 AM WELL REACTIVATOR OPERATOR documented in this encounter Results * (ABNORMAL) PROTIME-INR (10/25/2020 5:18 AM WELL REACTIVATOR OPERATOR) PROTIME 34.3(H) 11.9 - 15.5 Seconds 10/25/2020 7:01 PM WELL REACTIVATOR OPERATOR [facility] INR 3.3(H) 0.8 - 1.2 10/25/2020 7:01 PM WELL REACTIVATOR OPERATOR [facility] Blood Collection / Unknown 10/25/2020 5:18 AM WELL REACTIVATOR OPERATOR 10/25/2020 6:44 PM WELL REACTIVATOR OPERATOR Narrative [facility] - 10/25/2020 7:01 PM WELL REACTIVATOR OPERATOR Expected Values for INR: DVT/PE Goal INR 2.5; range 2.0 - 3.0 Valve Replacement Tissue Goal INR 2.5; range 2.0 - 3.0 Valve Replacement Mechanical Goal INR 3.0; range 2.5 - 3.5 POST-IL Goal INR 2.5; range 2.0 - 3.0 or Goal INR 3.0; range 2.5 - 3.5 Atrial Fibrillation Goal INR 2.5; range 2.0 - 3.0 Ischemic Stroke Goal INR 2.5; range 2.0 - 3.0 For additional information see Guidelines for Anticoagulation available from the pharmacy [facility] Pharm D. us Paulina Peterson MD HEMATOLOGY ORDERABLES Maame smart Result [facility] [address] [place] [address] documented in this encounter Visit Diagnoses Not on filedocumented in this encounter Care Teams Geodesy Teacher Relationship Specialty Start Date End Date Sharan Gómez Jr., MD [address] [place] [phone] PCP - General 08/10/05 documented as of this encounter
--- OUTSIDE RECORDS SUMMARY | 2025-08-15 22:55 | XMS_ITS | Encounter Summary ---
Author Organization [facility] Address [address] [place] [address] Care Team Providers Care Business Education Professor Name Role Phone Rico Muñiz MD, Sharan Jaime Primary Care Provider Encounter Details Date Type Department Care Team (Latest Contact Info) Description 02/15/2001 Outpatient Historical [facility] Sharan Gómez Jr., MD [address] [place] [address] Unspecified essential hypertension (Primary Dx); Heart valve replaced by other means Social History Tobacco Use Types Packs/Day Years Used Date Smoking Tobacco: Never Assessed Comments Unknown Sex and Gender Information Value Date Recorded Sex Assigned at Not on file Legal Sex Female 5:42 AM SAND CASTER Gender Identity Not on file Sexual Orientation Not on file documented as of this encounter Plan of Treatment Not on file documented as of this encounter Visit Diagnoses Diagnosis Unspecified essential hypertension- Primary Heart valve replaced by other means documented in this encounter Care Teams Business Education Professor Relationship Specialty Start Date End Date Sharan Gómez Jr., MD [address] [place] [address] PCP - General 08/10/05 documented as of this encounter
--- OUTSIDE RECORDS SUMMARY | 2025-08-15 22:55 | XMS_ITS | Encounter Summary ---
Author Organization [facility] Address [address] [place] [address] Care Team Providers Care Vrt Mechanic Name Role Phone Rico Muñiz MD, Sharan Jaime Primary Care Provider Encounter Details Date Type Department Care Team (Latest Contact Info) Description 12/31/2000 Outpatient Historical [facility] [place] [address] [facility] [address] [place] [address] Larry Olvrea MD Screening for malignant neoplasm of the rectum (Primary Dx) Social History Tobacco Use Types Packs/Day Years Used Date Smoking Tobacco: Never Assessed Comments Unknown Sex and Gender Information Value Date Recorded Sex Assigned at Not on file Legal Sex Female 5:42 AM ADULT PROBATION OFFICER Gender Identity Not on file Sexual Orientation Not on file documented as of this encounter Plan of Treatment Not on file documented as of this encounter Visit Diagnoses Diagnosis Screening for malignant neoplasm of the rectum- Primary documented in this encounter Care Teams Vrt Mechanic Relationship Specialty Start Date End Date Sharan Gómez Jr., MD [address] [place] [address] PCP - General 08/10/05 documented as of this encounter
--- OUTSIDE RECORDS SUMMARY | 2025-08-15 22:55 | XMS_ITS | Encounter Summary ---
Author Organization [facility] Address [address] [facility] Attn: [place] [address] Care Team Providers Care Supervisor Green End Department Name Role Phone Rico Muñiz MD, Sharan Jaime Primary Care Provider Encounter Details Date Type Department Care Team (Late st Contact Info) Description 02/15/2001 Outpatient Historical Sharan Gómez Jr., MD [address] [place] [address] Social History Tobacco Use Types Packs/Day Years Used Date Smoking Tobacco: Never Assessed Comments Unknown Sex and Gender Information Value Date Recorded Sex Assigned at Not on file Legal Sex Female 5:42 AM SANIPRACTIC PHYSICIAN Gender Identity Not on file Sexual Orientation Not on file documented as of this encounter Plan of Treatment Not on file documented as of this encounter Visit Diagnoses Not on filedocumented in this encounter Care Teams Supervisor Green End Department Relationship Specialty Start Date End Date Sharan Gómez Jr., MD [address] [place] [address] PCP - General 08/10/05 documented as of this encounter
--- OUTSIDE RECORDS SUMMARY | 2025-08-15 22:55 | XMS_ITS | Encounter Summary ---
Author Organization [facility] Address [address] [facility] Attn: [place] [address] Care Team Providers Care Threader Name Role Phone Rico Muñiz MD, Sharan Jaime Primary Care Provider Encounter Details Date Type Department Care Team (Late st Contact Info) Description 11/09/2000 Outpatient Historical Sharan Gómez Jr., MD [address] [place] [address] Social History Tobacco Use Types Packs/Day Years Used Date Smoking Tobacco: Never Assessed Comments Unknown Sex and Gender Information Value Date Recorded Sex Assigned at Not on file Legal Sex Female 5:42 AM CLIENT CONSULTANT Gender Identity Not on file Sexual Orientation Not on file documented as of this encounter Plan of Treatment Not on file documented as of this encounter Visit Diagnoses Not on filedocumented in this encounter Care Teams Threader Relationship Specialty Start Date End Date Sharan Gómez Jr., MD [address] [place] [address] PCP - General 08/10/05 documented as of this encounter
--- OUTSIDE RECORDS SUMMARY | 2025-08-15 22:55 | XMS_ITS | Encounter Summary ---
Author Organization [facility] Address [address] [place] [address] Care Team Providers Care Coffee Roaster Name Role Phone Rico Muñiz MD, Sharan Jaime Primary Care Provider Encounter Details Date Type Department Care Team (Latest Contact Info) Description 12/26/1999 Outpatient Historical [facility] Sharan Gómez Jr., MD [address] [place] [address] ASCVD (Primary Dx); Esophageal reflux; Unspecified essential hypertension; assisted (current) use of anticoagulants Social History Tobacco Use Types Packs/Day Years Used Date Smoking Tobacco: Never Assessed Comments Unknown Sex and Gender Information Value Date Recorded Sex Assigned at Not on file Legal Sex Female 5:42 AM CLEANING STAFF SUPERVISOR Gender Identity Not on file Sexual Orientation Not on file documented as of this encounter Plan of Treatment Not on file documented as of this encounter Visit Diagnoses Diagnosis ASCVD- Primary Unspecified cardiovascular disease Esophageal reflux Unspecified essential hypertension assisted (current) use of anticoagulants Long-term (current) use of anticoagulants documented in this encounter Care Teams Coffee Roaster Relationship Specialty Start Date End Date Sharan Gómez Jr., MD [address] [place] [address] PCP - General 08/10/05 documented as of this encounter
--- OUTSIDE RECORDS SUMMARY | 2025-08-15 22:55 | XMS_ITS | Encounter Summary ---
Author Organization [facility] Address [address] [facility] Attn: [place] [address] Care Team Providers Care Head Housekeeper Name Role Phone Rico Muñiz MD, Sharan Jaime Primary Care Provider Encounter Details Date Type Department Care Team (Late st Contact Info) Description 01/04/2001 Outpatient Historical Sharan Gómez Jr., MD [address] [place] [address] Social History Tobacco Use Types Packs/Day Years Used Date Smoking Tobacco: Never Assessed Comments Unknown Sex and Gender Information Value Date Recorded Sex Assigned at Not on file Legal Sex Female 5:42 AM PAPERBOARD BOX MAKER Gender Identity Not on file Sexual Orientation Not on file documented as of this encounter Plan of Treatment Not on file documented as of this encounter Visit Diagnoses Not on filedocumented in this encounter Care Teams Head Housekeeper Relationship Specialty Start Date End Date Sharan Gómez Jr., MD [address] [place] [address] PCP - General 08/10/05 documented as of this encounter
--- OUTSIDE RECORDS SUMMARY | 2025-08-15 22:55 | XMS_ITS | Encounter Summary ---
Author Organization [facility] Address [address] [place] [address] Care Team Providers Care Dinkey Locomotive Engineer Name Role Phone Rico Muñiz MD, Sharan Jaime Primary Care Provider Encounter Details Date Type Department Care Team (Latest Contact Info) Description 10/10/1999 Outpatient Historical [facility] Sharan Gómez Jr., MD [address] [place] [address] Unspecified circulatory system disorder (Primary Dx); Unspecified essential hypertension; keno terminal operator (current) use of anticoagulants Social History Tobacco Use Types Packs/Day Years Used Date Smoking Tobacco: Never Assessed Comments Unknown Sex and Gender Information Value Date Recorded Sex Assigned at Not on file Legal Sex Female 5:42 AM DIE SET UP WORKER Gender Identity Not on file Sexual Orientation Not on file documented as of this encounter Plan of Treatment Not on file documented as of this encounter Visit Diagnoses Diagnosis Unspecified circulatory system disorder- Primary Unspecified essential hypertension keno terminal operator (current) use of anticoagulants Long-term (current) use of anticoagulants documented in this encounter Care Teams Dinkey Locomotive Engineer Relationship Specialty Start Date End Date Sharan Gómez Jr., MD [address] [place] [phone] PCP - General 08/10/05 documented as of this encounter
--- OUTSIDE RECORDS SUMMARY | 2025-08-15 22:55 | XMS_ITS | Encounter Summary ---
Author Organization [facility] Address [address] [place] [address] Care Team Providers Care Autistic Teacher Name Role Phone Rico Muñiz MD, Sharan Jaime Primary Care Provider Encounter Details Date Type Department Care Team (Late st Contact Info) Description 2020 Lab Requisition [facility] Laboratory Services [address] [place] [phone] Tabatha Lynn, [facility] [address] [place] [address] Social History Tobacco Use Types Packs/Day Years Used Date Smoking Tobacco: Never Assessed Comments Unknown Sex and Gender Information Value Date Recorded Sex Assigned at Not on file Legal Sex Female 5:42 AM MOBILE EQUIPMENT SERVICER Gender Identity Not on file Sexual Orientation Not on file documented as of this encounter Plan of Treatment Not on file documented as of this encounter Procedures Procedure Name Priority Date/Time Associated Diagnosis Comments PROTIME-INR Routine 2020 6:14 AM MOBILE EQUIPMENT SERVICER documented in this encounter Results * (ABNORMAL) PROTIME-INR (2020 6:14 AM MOBILE EQUIPMENT SERVICER) PROTIME 23.0(H) 11.9 - 15.5 Seconds 2020 7:28 PM MOBILE EQUIPMENT SERVICER [facility] INR 2.0(H) 0.8 - 1.2 2020 7:28 PM MOBILE EQUIPMENT SERVICER [facility] Blood Collection / Unknown 2020 6:14 AM MOBILE EQUIPMENT SERVICER 2020 7:05 PM MOBILE EQUIPMENT SERVICER Narrative [facility] - 2020 7:28 PM MOBILE EQUIPMENT SERVICER Expected Values for INR: DVT/PE Goal INR 2.5; range 2.0 - 3.0 Valve Replacement Tissue Goal INR 2.5; range 2.0 - 3.0 Valve Replacement Mechanical Goal INR 3.0; range 2.5 - 3.5 POST-ND Goal INR 2.5; range 2.0 - 3.0 or Goal INR 3.0; range 2.5 - 3.5 Atrial Fibrillation Goal INR 2.5; range 2.0 - 3.0 Ischemic Stroke Goal INR 2.5; range 2.0 - 3.0 For additional information see Guidelines for Anticoagulation available from the pharmacy [facility], Pharm D. Tabatha Neff FINANCE LECTURER HEMATOLOGY ORDERABLES Final Result Performing Organization Address City/State/[facility] Co de Phone Number [facility] [address] [place] [address] documented in this encounter Visit Diagnoses Not on filedocumented in this encounter Care Teams Autistic Teacher Relationship Specialty Start Date End Date Sharan Gómez Jr., MD [address] [place] [address] PCP - General 08/10/05 documented as of this encounter
--- OUTSIDE RECORDS SUMMARY | 2025-08-15 22:55 | XMS_ITS | Encounter Summary ---
Author Organization [facility] Address [address] [place] [address] Care Team Providers Care School Admissions Representative Name Role Phone Rico Muñiz MD, Sharan Jaime Primary Care Provider Encounter Details Date Type Department Care Team (Latest Contact Info) Description 01/25/2000 Outpatient Historical [facility] Sharan Gómez Jr., MD [address] [place] [address] Obesity, unspecified (Primary Dx); Heart valve replaced by other means; Unspecified essential hypertension; [facility] (current) use of anticoagulants Social History Tobacco Use Types Packs/Day Years Used Date Smoking Tobacco: Never Assessed Comments Unknown Sex and Gender Information Value Date Recorded Sex Assigned at Not on file Legal Sex Female 5:42 AM FIRE PROTECTION SPECIALIST Gender Identity Not on file Sexual Orientation Not on file documented as of this encounter Plan of Treatment Not on file documented as of this encounter Visit Diagnoses Diagnosis Obesity, unspecified- Primary Heart valve replaced by other means Unspecified essential hypertension [facility] (current) use of anticoagulants Long-term (current) use of anticoagulants documented in this encounter Care Teams School Admissions Representative Relationship Specialty Start Date End Date Sharan Gómez Jr., MD [address] [place] [phone] PCP - General 08/10/05 documented as of this encounter
--- OUTSIDE RECORDS SUMMARY | 2025-08-15 22:55 | XMS_ITS | Encounter Summary ---
Author Organization [facility] Address [address] [facility] Attn: [place] [address] Care Team Providers Care Tube Cleaner Name Role Phone Rico Muñiz MD, Sharan Jaime Primary Care Provider Encounter Details Date Type Department Care Team (Late st Contact Info) Description 12/26/1999 Outpatient Historical Sharan Gómez Jr., MD [address] [place] [address] Social History Tobacco Use Types Packs/Day Years Used Date Smoking Tobacco: Never Assessed Comments Unknown Sex and Gender Information Value Date Recorded Sex Assigned at Not on file Legal Sex Female 5:42 AM PIE FILLER Gender Identity Not on file Sexual Orientation Not on file documented as of this encounter Plan of Treatment Not on file documented as of this encounter Visit Diagnoses Not on filedocumented in this encounter Care Teams Tube Cleaner Relationship Specialty Start Date End Date Sharan Gómez Jr., MD [address] [place] [address] PCP - General 08/10/05 documented as of this encounter
--- OUTSIDE RECORDS SUMMARY | 2025-08-15 22:55 | XMS_ITS | Encounter Summary ---
Author Organization [facility] Address [address] [place] [address] Care Team Providers Care Eap Counselor Name Role Phone Rico Muñiz MD, Sharan Jaime Primary Care Provider Encounter Details Date Type Department Care Team (Latest Contact Info) Description 08/10/2005 Outpatient Historical [facility] Endoscopy Rebeca [address] [place] [address] Bill Negron MD [address] [place] [address] INT HEMORRHOID W/O COMPL (Primary Dx) Social History Tobacco Use Types Packs/Day Years Used Date Smoking Tobacco: Never Assessed Comments Unknown Sex and Gender Information Value Date Recorded Sex Assigned at Not on file Legal Sex Female 5:42 AM FARM PLANNER Gender Identity Not on file Sexual Orientation [...] Primary documented in this encounter Care Teams Eap Counselor Relationship Specialty Start Date End Date Sharan Gómez Jr., MD [address] [place] [address] PCP - General 08/10/05 documented as of this encounter
--- OUTSIDE RECORDS SUMMARY | 2025-08-15 22:55 | XMS_ITS | Encounter Summary ---
Author Organization [facility] Address [address] [place] [address] Care Team Providers Care Ep Tech Name Role Phone Rico Muñiz MD, Sharan Jaime Primary Care Provider Encounter Details Date Type Department Care Team (Latest Contact Info) Description 04/06/2000 Outpatient Historical [facility] Sharan Gómez Jr., MD [address] [place] [address] Symptomatic menopausal or female climacteric states (Primary Dx); Endocarditis, valve unspecified, unspecified cause; terminal clerk (current) use of anticoagulants Social History Tobacco Use Types Packs/Day Years Used Date Smoking Tobacco: Never Assessed Comments Unknown Sex and Gender Information Value Date Recorded Sex Assigned at Not on file Legal Sex Female 5:42 AM COPPER MINER Gender Identity Not on file Sexual Orientation Not on file documented as of this encounter Plan of Treatment Not on file documented as of this encounter Visit Diagnoses Diagnosis Symptomatic menopausal or female climacteric states- Primary Endocarditis, valve unspecified, unspecified cause terminal clerk (current) use of anticoagulants Long-term (current) use of anticoagulants documented in this encounter Care Teams Ep Tech Relationship Specialty Start Date End Date Sharan Gómez Jr., MD [address] [place] [phone] PCP - General 08/10/05 documented as of this encounter
--- OUTSIDE RECORDS SUMMARY | 2025-08-15 22:55 | XMS_ITS | Encounter Summary ---
Author Organization [facility] Address [address] [place] [address] Care Team Providers Care Superintendent Nonselling Name Role Phone Rico Muñiz MD, Sharan Jiame Primary Care Provider Encounter Details Date Type Department Care Team (Latest Contact Info) Description 06/20/1999 Outpatient Historical [facility] Imaging Services-Faisal Lopez Michelle [address] [place] [address] Serge Arrington MD [address] [place] [address] Cough (Primary Dx) Social History Tobacco Use Types Packs/Day Years Used Date Smoking Tobacco: Never Assessed Comments Unknown Sex and Gender Information Value Date Recorded Sex Assigned at Not on file Legal Sex Female 5:42 AM WEB SITE SPECIALIST Gender Identity Not on file Sexual Orientation Not on file documented as of this encounter Plan of Treatment Not on file documented as of this encounter Visit Diagnoses Diagnosis Cough- Primary documented in this encounter Care Teams Superintendent Nonselling Relationship Specialty Start Date End Date Sharan Gómez Jr., MD [address] [place] [address] PCP - General 08/10/05 documented as of this encounter
--- OUTSIDE RECORDS SUMMARY | 2025-08-15 22:55 | XMS_ITS | Encounter Summary ---
Author Organization [facility] Address [address] [place] [address] Care Team Providers Care Display Trimmer Name Role Phone Rico Muñiz MD, Sharan Jaime Primary Care Provider Encounter Details Date Type Department Care Team (Latest Contact Info) Description 05/18/1999 Outpatient Historical [facility] Sharan Gómez Jr., MD [address] [place] [address] Osteoarthrosis, unspecified whether generalized or localized, unspecified site (Primary Dx); half-way (current) use of anticoagulants; Heart valve replaced by other means Social History Tobacco Use Types Packs/Day Years Used Date Smoking Tobacco: Never Assessed Comments Unknown Sex and Gender Information Value Date Recorded Sex Assigned at Not on file Legal Sex Female 5:42 AM NEWSPAPER JOURNALIST Gender Identity Not on file Sexual Orientation Not on file documented as of this encounter Plan of Treatment Not on file documented as of this encounter Visit Diagnoses Diagnosis Osteoarthrosis, unspecified whether generalized or localized, unspecified site- Primary termination clerk (current) use of anticoagulants Long-term (current) use of anticoagulants Heart valve replaced by other means documented in this encounter Care Teams Display Trimmer Relationship Specialty Start Date End Date Sharan Gómez Jr., MD [address] [place] [address] PCP - General 08/10/05 documented as of this encounter
--- OUTSIDE RECORDS SUMMARY | 2025-08-15 22:55 | XMS_ITS | Encounter Summary ---
Author Organization [facility] Address [address] [place] [address] Care Team Providers Care Ultrasound Manager Name Role Phone Rico Muñiz MD, Sharan Jaime Primary Care Provider Encounter Details Date Type Department Care Team (Latest Contact Info) Description 08/31/2000 Outpatient Historical [facility] Sharan Gómez Jr., MD [address] [place] [address] Pure hypercholesterolem (Primary Dx); Dietary surveil/pastoral counselor Social History Tobacco Use Types Packs/Day Years Used Date Smoking Tobacco: Never Assessed Comments Unknown Sex and Gender Information Value Date Recorded Sex Assigned at Not on file Legal Sex Female 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 TESTING LABORATORY TECHNICIAN Gender Identity Not on file Sexual Orientation Not on file documented as of this encounter Plan of Treatment Not on file documented as of this encounter Visit Diagnoses Diagnosis Pure hypercholesterolem- Primary Pure hypercholesterolemia Dietary surveil/pastoral counselor Dietary surveillance and counseling documented in this encounter Care Teams Ultrasound Manager Relationship Specialty Start Date End Date Sharan Gómez Jr., MD [address] [place] [address] PCP - General 08/10/05 documented as of this encounter
--- OUTSIDE RECORDS SUMMARY | 2025-08-15 22:55 | XMS_ITS | Encounter Summary ---
Author Organization [facility] Address [address] [place] [address] Care Team Providers Care Weathercaster Name Role Phone Rico Muñiz MD, Sharan Jaime Primary Care Provider Encounter Details Date Type Department Care Team (Latest Contact Info) Description 06/20/1999 Outpatient Historical [facility] [place] [place] [address] Serge Arrington MD [address] [place] [address] Mitral valve disorder (Primary Dx); Unspecified essential hypertension; Other and unspecified hyperlipidemia; Hematuria Social History Tobacco Use Types Packs/Day Years Used Date Smoking Tobacco: Never Assessed Comments Unknown Sex and Gender Information Value Date Recorded Sex Assigned at Not on file Legal Sex Female 5:42 AM ALTERATIONS WORKROOM CLERK Gender Identity Not on file Sexual Orientation Not on file documented as of this encounter Plan of Treatment Not on file documented as of this encounter Visit Diagnoses Diagnosis Mitral valve disorder- Primary Mitral valve disorders Unspecified essential hypertension Other and unspecified hyperlipidemia Hematuria documented in this encounter Care Teams Weathercaster Relationship Specialty Start Date End Date Sharan Gómez Jr., MD [address] [place] [phone] PCP - General 08/10/05 documented as of this encounter
--- OUTSIDE RECORDS SUMMARY | 2025-08-15 22:55 | XMS_ITS | Encounter Summary ---
Author Organization [facility] Address [address] [place] [address] Care Team Providers Care Construction Ironworker Name Role Phone Rico Muñiz MD, Sharan Jaime Primary Care Provider Encounter Details Date Type Department Care Team (Latest Contact Info) Description 06/21/2000 Outpatient Historical [facility] Int Luis AFaisal Lopez [place] [place] [address] Serge Arrington MD [address] [place] [address] Mitral valve disorder (Primary Dx); Unspecified essential hypertension; Unspecified gastritis and gastroduodenitis without mention of hemorrhage Social History Tobacco Use Types Packs/Day Years Used Date Smoking Tobacco: Never Assessed Comments Unknown Sex and Gender Information Value Date Recorded Sex Assigned at Not on file Legal Sex Female 5:42 AM ACCOUNTING AUDITOR Gender Identity Not on file Sexual Orientation Not on file documented as of this encounter Plan of Treatment Not on file documented as of this encounter Visit Diagnoses Diagnosis Mitral valve disorder- Primary Mitral valve disorders Unspecified essential hypertension Unspecified gastritis and gastroduodenitis without mention of hemorrhage documented in this encounter Care Teams Construction Ironworker Relationship Specialty Start Date End Date Sharan Gómez Jr., MD [address] [place] [address] PCP - General 08/10/05 documented as of this encounter
--- OUTSIDE RECORDS SUMMARY | 2025-08-15 22:55 | XMS_ITS | Encounter Summary ---
Author Organization [facility] Address [address] [place] [address] Care Team Providers Care Security Solutions Architect Name Role Phone Rico Muñiz MD, Sharan Jaime Primary Care Provider Encounter Details Date Type Department Care Team (Latest Contact Info) Description 10/26/1999 Outpatient Historical [facility] Sharan Gómez Jr., MD [address] [place] [address] Endocarditis, valve unspecified, unspecified cause (Primary Dx); Osteoporosis, unspecified Social History Tobacco Use Types Packs/Day Years Used Date Smoking Tobacco: Never Assessed Comments Unknown Sex and Gender Information Value Date Recorded Sex Assigned at Not on file Legal Sex Female 5:42 AM SHIP'S COOK Gender Identity Not on file Sexual Orientation Not on file documented as of this encounter Plan of Treatment Not on file documented as of this encounter Visit Diagnoses Diagnosis Endocarditis, valve unspecified, unspecified cause- Primary Osteoporosis, unspecified documented in this encounter Care Teams Security Solutions Architect Relationship Specialty Start Date End Date Sharan Gómez Jr., MD [address] [place] [address] PCP - General 08/10/05 documented as of this encounter
--- OUTSIDE RECORDS SUMMARY | 2025-08-15 22:55 | XMS_ITS | Encounter Summary ---
Author Organization [facility] Address [address] [place] [address] Care Team Providers Care Coding Educator Name Role Phone Rico Muñiz MD, Sharan Jaime Primary Care Provider Encounter Details Date Type Department Care Team (Latest Contact Info) Description 09/12/2000 Outpatient Historical [facility] Sharan Gómez Jr., MD [address] [place] [address] Other and unspecified hyperlipidemia (Primary Dx); Other nonspecific finding on examination of urine; Personal history of other disorder of urinary system; moth exterminator (current) use of anticoagulants Social History Tobacco Use Types Packs/Day Years Used Date Smoking Tobacco: Never Assessed Comments Unknown Sex and Gender Information Value Date Recorded Sex Assigned at Not on file Legal Sex Female 5:42 AM LUNCHROOM SUPERVISOR Gender Identity Not on file Sexual Orientation Not on file documented as of this encounter Plan of Treatment Not on file documented as of this encounter Visit Diagnoses Diagnosis Other and unspecified hyperlipidemia- Primary Other nonspecific finding on examination of urine Personal history of other disorder of urinary system [facility] (current) use of anticoagulants Long-term (current) use of anticoagulants documented in this encounter Care Teams Coding Educator Relationship Specialty Start Date End Date Sharan Gómez Jr., MD [address] [place] [address] PCP - General 08/10/05 documented as of this encounter
--- OUTSIDE RECORDS SUMMARY | 2025-08-15 22:55 | XMS_ITS | Encounter Summary ---
Author Organization [facility] Address [address] [place] [address] Care Team Providers Care Curing Room Supervisor Name Role Phone Rico Muñiz MD, Sharan Jaime Primary Care Provider Encounter Details Date Type Department Care Team (Late st Contact Info) Description 10/18/2020 Lab Requisition [facility] Laboratory Services [address] [place] [address] Tabatha Lynn, [facility] [address] [place] [address] Social History Tobacco Use Types Packs/Day Years Used Date Smoking Tobacco: Never Assessed Comments Unknown Sex and Gender Information Value Date Recorded Sex Assigned at Not on file Legal Sex Female 5:42 AM MERCHANDISE DIRECTOR Gender Identity Not on file Sexual Orientation Not on file documented as of this encounter Plan of Treatment Not on file documented as of this encounter Procedures Procedure Name Priority Date/Time Associated Diagnosis Comments PROTIME-INR Routine 10/18/2020 6:34 AM MERCHANDISE DIRECTOR documented in this encounter Results * (ABNORMAL) PROTIME-INR (10/18/2020 6:34 AM MERCHANDISE DIRECTOR) PROTIME 34.1(H) 11.9 - 15.5 Seconds 10/18/2020 5:19 PM MERCHANDISE DIRECTOR [facility] INR 3.2(H) 0.8 - 1.2 10/18/2020 5:19 PM MERCHANDISE DIRECTOR [facility] Blood Collection / Unknown 10/18/2020 6:34 AM MERCHANDISE DIRECTOR 10/18/2020 4:57 PM MERCHANDISE DIRECTOR Narrative [facility] - 10/18/2020 5:19 PM MERCHANDISE DIRECTOR Expected Values for INR: DVT/PE Goal INR 2.5; range 2.0 - 3.0 Valve Replacement Tissue Goal INR 2.5; range 2.0 - 3.0 Valve Replacement Mechanical Goal INR 3.0; range 2.5 - 3.5 POST-WV Goal INR 2.5; range 2.0 - 3.0 or Goal INR 3.0; range 2.5 - 3.5 Atrial Fibrillation Goal INR 2.5; range 2.0 - 3.0 Ischemic Stroke Goal INR 2.5; range 2.0 - 3.0 For additional information see Guidelines for Anticoagulation available from the pharmacy Aspen Mitchell, Pharm D. Tabatha Neff CALL CENTER COORDINATOR HEMATOLOGY ORDERABLES Final Result [facility] [address] [place] [address] documented in this encounter Visit Diagnoses Not on filedocumented in this encounter Care Teams Curing Room Supervisor Relationship Specialty Start Date End Date Sharan Gómez Jr., MD [address] [place] [address] PCP - General 08/10/05 documented as of this encounter
--- OUTSIDE RECORDS SUMMARY | 2025-08-15 22:55 | XMS_ITS | Encounter Summary ---
Author Organization [facility] Address [address] [place] [address] Care Team Providers Care Medication Specialist Name Role Phone Rico Muñiz MD, Sharan Jaime Primary Care Provider Encounter Details Date Type Department Care Team (Latest Contact Info) Description 03/18/1999 Outpatient Historical [facility] Sharan Gómez Jr., MD [address] [place] [address] Endocarditis, valve unspecified, unspecified cause (Primary Dx); intermediate (current) use of anticoagulants Social History Tobacco Use Types Packs/Day Years Used Date Smoking Tobacco: Never Assessed Comments Unknown Sex and Gender Information Value Date Recorded Sex Assigned at Not on file Legal Sex Female 5:42 AM LAP CUTTER TRUER OPERATOR Gender Identity Not on file Sexual Orientation Not on file documented as of this encounter Plan of Treatment Not on file documented as of this encounter Visit Diagnoses Diagnosis Endocarditis, valve unspecified, unspecified cause- Primary intermediate (current) use of anticoagulants Long-term (current) use of anticoagulants documented in this encounter Care Teams Medication Specialist Relationship Specialty Start Date End Date Sharan Gómez Jr., MD [address] [place] [address] PCP - General 08/10/05 documented as of this encounter
--- OUTSIDE RECORDS SUMMARY | 2025-08-15 22:55 | XMS_ITS | Encounter Summary ---
Author Organization [facility] Address [address] [place] [address] Care Team Providers Care Commission Associate Name Role Phone Rico Muñiz MD, Sharan Jaime Primary Care Provider Encounter Details Date Type Department Care Team (Latest Contact Info) Description 05/24/2000 Outpatient Historical [facility] Sharan Gómez Jr., MD [address] [place] [address] Unspecified essential hypertension (Primary Dx); Osteoporosis, unspecified Social History Tobacco Use Types Packs/Day Years Used Date Smoking Tobacco: Never Assessed Comments Unknown Sex and Gender Information Value Date Recorded Sex Assigned at Not on file Legal Sex Female 5:42 AM WORKPLACE RELATIONS ADVISER Gender Identity Not on file Sexual Orientation Not on file documented as of this encounter Plan of Treatment Not on file documented as of this encounter Visit Diagnoses Diagnosis Unspecified essential hypertension- Primary Osteoporosis, unspecified documented in this encounter Care Teams Commission Associate Relationship Specialty Start Date End Date Sharan Gómez Jr., MD [address] [place] [address] PCP - General 08/10/05 documented as of this encounter
--- OUTSIDE RECORDS SUMMARY | 2025-08-15 22:55 | XMS_ITS | Encounter Summary ---
Author Organization [facility] Address [address] [place] [address] Care Team Providers Care Treasury Specialist Name Role Phone Rico Muñiz MD, Sharan Jaime Primary Care Provider Encounter Details Date Type Department Care Team (Latest Contact Info) Description 12/21/2000 Outpatient Historical [facility] Sharan Gómez Jr., MD [address] [place] [address] Pure hypercholesterolem (Primary Dx); Other and unspecified hyperlipidemia; Esophageal reflux; termite exterminator helper (current) use of anticoagulants Social History Tobacco Use Types Packs/Day Years Used Date Smoking Tobacco: Never Assessed Comments Unknown Sex and Gender Information Value Date Recorded Sex Assigned at Not on file Legal Sex Female 5:42 AM LEAK OPERATOR PARAFFIN PLANT Gender Identity Not on file Sexual Orientation Not on file documented as of this encounter Plan of Treatment Not on file documented as of this encounter Visit Diagnoses Diagnosis Pure hypercholesterolem- Primary Pure hypercholesterolemia Other and unspecified hyperlipidemia Esophageal reflux prison (current) use of anticoagulants Long-term (current) use of anticoagulants documented in this encounter Care Teams Treasury Specialist Relationship Specialty Start Date End Date Sharan Gómez Jr., MD [address] [place] [address] PCP - General 08/10/05 documented as of this encounter
--- OUTSIDE RECORDS SUMMARY | 2025-08-15 22:55 | XMS_ITS | Clinical Summary ---
Author Organization [facility] Address [address] [place] [address] Phone Care Team Providers Care Molasses And Caramel Operator Name Role Phone Rico Muñiz MD, Sharan Jaime Primary Care Provider Immunizations Immunization Administration Dates Next Due (PNEUMOVAX 23)(50 YRS UP) PN EUMOCOCCAL POLYSACCHARIDE (PPV23) 0.5 ML, IM 06/26/2003 Social History Tobacco Use Types Packs/Day Years Used Date Smoking Tobacco: Never Assessed Comments Unknown Sex and Gender Information Value Date Recorded Sex Assigned at Not on file Legal Sex Female 5:42 AM SPINNER CAP FRAME Gender Identity Not on file Sexual Orientation [...] AND BLUE SHI[place]ID [place] Care Teams Molasses And Caramel Operator Relationship Specialty Start Date End Date Sharan Gómez Jr., MD [address] [place] [address] PCP - General 08/10/05
--- OUTSIDE RECORDS SUMMARY | 2025-08-15 22:55 | XMS_ITS | Encounter Summary ---
Author Organization [facility] Address [address] [place] [address] Care Team Providers Care Warehouse Assistant Name Role Phone Rico Muñiz MD, Sharan Jaime Primary Care Provider Encounter Details Date Type Department Care Team (Latest Contact Info) Description 10/01/2000 Outpatient Historical [facility] Sharan Gómez Jr., MD [address] [place] [address] Endocarditis, valve unspecified, unspecified cause (Primary Dx); Other and unspecified hyperlipidemia; Osteoarthrosis, unspecified whether generalized or localized, unspecified site Social History Tobacco Use Types Packs/Day Years Used Date Smoking Tobacco: Never Assessed Comments Unknown Sex and Gender Information Value Date Recorded Sex Assigned at Not on file Legal Sex Female 5:42 AM CONSULTING INTERN Gender Identity Not on file Sexual Orientation Not on file documented as of this encounter Plan of Treatment Not on file documented as of this encounter Visit Diagnoses Diagnosis Endocarditis, valve unspecified, unspecified cause- Primary Other and unspecified hyperlipidemia Osteoarthrosis, unspecified whether generalized or localized, unspecified site documented in this encounter Care Teams Warehouse Assistant Relationship Specialty Start Date End Date Sharan Gómez Jr., MD [address] [place] [address] PCP - General 08/10/05 documented as of this encounter
--- OUTSIDE RECORDS SUMMARY | 2025-08-15 22:55 | XMS_ITS | Encounter Summary ---
Author Organization [facility] Address [address] [place] [address] Care Team Providers Care Trailer Sections Assembler Name Role Phone Rico Muñiz MD, Sharan Jaime Primary Care Provider Encounter Details Date Type Department Care Team (Latest Contact Info) Description 04/01/1999 Outpatient Historical [facility] Sharan Gómez Jr., MD [address] [place] [address] Type II or unspecified type diabetes mellitus without mention of complication, not stated as uncontrolled (Primary Dx); Dietary surveil/certified genetic counselor Social History Tobacco Use Types Packs/Day Years Used Date Smoking Tobacco: Never Assessed Comments Unknown Sex and Gender Information Value Date Recorded Sex Assigned at Not on file Legal Sex Female 5:42 AM TECHNICAL ENGINEER Gender Identity Not on file Sexual Orientation Not on file documented as of this encounter Plan of Treatment Not on file documented as of this encounter Visit Diagnoses Diagnosis Type II or unspecified type diabetes mellitus without mention of complication, not stated as uncontrolled- Primary Dietary surveil/certified genetic counselor Dietary surveillance and counseling documented in this encounter Care Teams Trailer Sections Assembler Relationship Specialty Start Date End Date Sharan Gómez Jr., MD [address] [place] [address] PCP - General 08/10/05 documented as of this encounter
--- OUTSIDE RECORDS SUMMARY | 2025-08-15 22:55 | XMS_ITS | Encounter Summary ---
Author Organization [facility] Address [address] [place] [address] Care Team Providers Care Automatic Buffing Wheel Former Name Role Phone Rico Muñiz MD, Sharan Jaime Primary Care Provider Encounter Details Date Type Department Care Team (Latest Contact Info) Description 07/18/1999 Outpatient Historical [facility] Sharan Gómez Jr., MD [address] [place] [address] Skin sensation disturb (Primary Dx); Headache(784.0); custodial (current) use of anticoagulants Social History Tobacco Use Types Packs/Day Years Used Date Smoking Tobacco: Never Assessed Comments Unknown Sex and Gender Information Value Date Recorded Sex Assigned at Not on file Legal Sex Female 5:42 AM VENDING MACHINE COLLECTOR Gender Identity Not on file Sexual Orientation Not on file documented as of this encounter Plan of Treatment Not on file documented as of this encounter Visit Diagnoses Diagnosis Skin sensation disturb- Primary Disturbance of skin sensation Headache(784.0) Headache bed bug exterminator (current) use of anticoagulants Long-term (current) use of anticoagulants documented in this encounter Care Teams Automatic Buffing Wheel Former Relationship Specialty Start Date End Date Sharan Gómez Jr., MD [address] [place] [address] PCP - General 08/10/05 documented as of this encounter
--- OUTSIDE RECORDS SUMMARY | 2025-08-15 22:55 | XMS_ITS | Encounter Summary ---
Author Organization [facility] Address [address] [facility] Attn: [place] [address] Care Team Providers Care Human Resources Operations Specialist Name Role Phone Rico Muñiz MD, Sharan Jaime Primary Care Provider Encounter Details Date Type Department Care Team (Late st Contact Info) Description 05/24/2000 Outpatient Historical Sharan Gómez Jr., MD [address] [place] [address] Social History Tobacco Use Types Packs/Day Years Used Date Smoking Tobacco: Never Assessed Comments Unknown Sex and Gender Information Value Date Recorded Sex Assigned at Not on file Legal Sex Female 5:42 AM PHOTOGRAPHY TEACHER Gender Identity Not on file Sexual Orientation Not on file documented as of this encounter Plan of Treatment Not on file documented as of this encounter Visit Diagnoses Not on filedocumented in this encounter Care Teams Human Resources Operations Specialist Relationship Specialty Start Date End Date Sharan Gómez Jr., MD [address] [place] [address] PCP - General 08/10/05 documented as of this encounter
--- OUTSIDE RECORDS SUMMARY | 2025-08-15 22:55 | XMS_ITS | Encounter Summary ---
Author Organization [facility] Address [address] [place] [address] Care Team Providers Care Auto Care Center Manager Name Role Phone Rico Muñiz MD, Sharan Jaime Primary Care Provider Encounter Details Date Type Department Care Team (Latest Contact Info) Description 11/25/1999 Outpatient Historical [facility] Sharan Gómez Jr., MD [address] [place] [address] Epistaxis (Primary Dx); terminologist (current) use of anticoagulants Social History Tobacco Use Types Packs/Day Years Used Date Smoking Tobacco: Never Assessed Comments Unknown Sex and Gender Information Value Date Recorded Sex Assigned at Not on file Legal Sex Female 5:42 AM MANAGER WELDING Gender Identity Not on file Sexual Orientation Not on file documented as of this encounter Plan of Treatment Not on file documented as of this encounter Visit Diagnoses Diagnosis Epistaxis- Primary terminologist (current) use of anticoagulants Long-term (current) use of anticoagulants documented in this encounter Care Teams Auto Care Center Manager Relationship Specialty Start Date End Date Sharan Gómez Jr., MD [address] [place] [address] PCP - General 08/10/05 documented as of this encounter
--- OUTSIDE RECORDS SUMMARY | 2025-08-15 22:55 | XMS_ITS | Encounter Summary ---
Author Organization [facility] Address [address] [place] [address] Care Team Providers Care Stripe Matcher Name Role Phone Rico Muñiz MD, Sharan Jaime Primary Care Provider Encounter Details Date Type Department Care Team (Latest Contact Info) Description 08/10/2005 Outpatient Historical [facility] [place] [address] [facility] [address] [place] [address] Bill Negron MD [address] [place] [address] ABN FIND-STOOL CONTENTS-OCC BLOOD (Primary Dx); INT HEMORRHOID W/O COMPL; ANAL FISSURE Social History Tobacco Use Types Packs/Day Years Used Date Smoking Tobacco: Never Assessed Comments Unknown Sex and Gender Information Value Date Recorded Sex Assigned at Not on file Legal 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
--- OUTSIDE RECORDS SUMMARY | 2025-08-15 22:55 | XMS_ITS | Encounter Summary ---
Author Organization [facility] Address [address] [place] [address] Care Team Providers Care Patient Care Technician Instructor Name Role Phone Rico Muñiz MD, Sharan Jaime Primary Care Provider Encounter Details Date Type Department Care Team (Latest Contact Info) Description 11/09/2000 Outpatient Historical [facility] Sharan Gómez Jr., MD [address] [place] [address] Unspecified essential hypertension (Primary Dx); Pure hypercholesterolem; Endocarditis, valve unspecified, unspecified cause; retirement (current) use of anticoagulants Social History Tobacco Use Types Packs/Day Years Used Date Smoking Tobacco: Never Assessed Comments Unknown Sex and Gender Information Value Date Recorded Sex Assigned at Not on file 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 Gender Identity Not on file Sexual Orientation Not on file documented as of this encounter Plan of Treatment Not on file documented as of this encounter Visit Diagnoses Diagnosis Unspecified essential hypertension- Primary Pure hypercholesterolem Pure hypercholesterolemia Endocarditis, valve unspecified, unspecified cause 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
--- OUTSIDE RECORDS SUMMARY | 2025-08-15 22:55 | XMS_ITS | Encounter Summary ---
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 Social History Tobacco Use Types Packs/Day Years Used Date Smoking Tobacco: Never Assessed Comments Unknown Sex and Gender Information Value Date Recorded Sex Assigned at Not on file 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
--- OUTSIDE RECORDS SUMMARY | 2025-08-15 22:55 | XMS_ITS | Encounter Summary ---
Author Organization [facility] Address [address] [place] [address] Care Team Providers Care Computer Operations Manager Name Role Phone Rico Muñiz MD, Sharan Jaime Primary Care Provider Encounter Details Date Type Department Care Team (Late st Contact Info) Description 07/26/1999 Outpatient Historical [facility] Cardiology- [place] [address] [place] [phone] [place] [address] 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
--- OUTSIDE RECORDS SUMMARY | 2025-08-15 22:55 | XMS_ITS | Encounter Summary ---
Author Organization [facility] Address [address] [place] [address] Care Team Providers Care Machinist Mechanic Name Role Phone Rico Muñiz MD, Sharan Jaime Primary Care Provider Encounter Details Date Type Department Care Team (Late st Contact Info) Description 10/16/2020 Lab Requisition [facility] [place] [address] [place] [phone] Mtnv, External Provider [address] [facility] [address] [place] [address] Social History Tobacco Use Types Packs/Day Years Used Date Smoking Tobacco: Never Assessed Comments Unknown Sex and Gender Information Value Date Recorded Sex Assigned at Not on file 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 Gender Identity Not on file Sexual Orientation Not on file documented as of this encounter Plan of Treatment Not on file documented as of this encounter Procedures Procedure Name Priority Date/Time Associated Diagnosis Comments PROTIME-INR Routine 10/16/2020 10:20 AM OYSTER CULTIVATOR documented in this encounter Results * (ABNORMAL) PROTIME-INR (10/16/2020 10:20 AM OYSTER CULTIVATOR) PROTIME 42.0(H) 12.0 - 14.4 Seconds 10/16/2020 12:05 PM OYSTER CULTIVATOR [facility] INR 4.7(H) 0.8 - 1.2 10/16/2020 12:05 PM OYSTER CULTIVATOR [facility] Blood 10/16/2020 10:2 0 AM OYSTER CULTIVATOR 10/16/2020 11:47 AM OYSTER CULTIVATOR us External Provider Mtnv HEMATOLOGY ORDERABLES Fin al Result [facility] CLIA # [id number] [address] [place] [address] documented in this encounter Visit Diagnoses Not on filedocumented in this encounter Care Teams Machinist Mechanic Relationship Specialty Start Date End Date Sharan Gómez Jr., MD [address] [place] [address] PCP - General 08/10/05 documented as of this encounter
--- OUTSIDE RECORDS SUMMARY | 2025-08-15 22:55 | XMS_ITS | Encounter Summary ---
Author Organization [facility] Address [address] [place] [address] Care Team Providers Care Manufacturing Engineer Machining Name Role Phone Rico Muñiz MD, Sharan Jaime Primary Care Provider Encounter Details Date Type Department Care Team (Latest Contact Info) Description 04/12/2001 Outpatient Historical [facility] Sharan Gómez Jr., MD [address] [place] [address] Osteoarthrosis, unspecified whether generalized or localized, unspecified site (Primary Dx); Heart valve replaced by other means; prison (current) use of anticoagulants Social History Tobacco Use Types Packs/Day Years Used Date Smoking Tobacco: Never Assessed Comments Unknown Sex and Gender Information Value Date Recorded Sex Assigned at Not on file 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 Gender Identity Not on file Sexual Orientation Not on file documented as of this encounter Plan of Treatment Not on file documented as of this encounter Visit Diagnoses Diagnosis Osteoarthrosis, unspecified whether generalized or localized, unspecified site- Primary Heart valve replaced by other means 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
--- OUTSIDE RECORDS SUMMARY | 2025-08-15 22:55 | XMS_ITS | Encounter Summary ---
Author Organization [facility] Address [address] [place] [address] Care Team Providers Care Or Rn Name Role Phone Rico Muñiz MD, Sharan Jaime Primary Care Provider Encounter Details Date Type Department Care Team (Latest Contact Info) Description 06/20/1999 Outpatient Historical [facility] Echocardiography - [facility] [address] [place] [address] X358 Serge Arrington MD [address] [address] Painful respiration (Primary Dx); Precordial pain; Other dyspnea and respiratory abnormality Social History Tobacco Use Types Packs/Day Years Used Date Smoking Tobacco: Never Assessed Comments Unknown Sex and Gender Information Value Date Recorded Sex Assigned at Not on file Legal 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
[2025-08-15 23:09] LABS: Hematocrit 37.9 % (36-47); Hemoglobin 12.30 g/dL (11.27-16.99); Mean Corpuscular HGB Conc 32.5 g/dL (30-55); Mean Corpuscular Hemoglobin 35.2 pg (27-33); Mean Corpuscular Volume 108.6 fl (85-98); Nucleated Red Blood Cells % 0 %; Platelet Count 219 10^3/cmm (157-399); Red Blood Count 3.49 10^6/uL (3.85-5.65); White Blood Count 6.41 10^3/uL (3.29-11.43)
[2025-08-15 23:24] LABS: INR 1.66 (0.8-1.2); Prothrombin Time 20.70 SECONDS (12.1-14.9)
[2025-08-15 23:31] LABS: Troponin(5th) Baseline 15 ng/L (0-10)
[2025-08-15 23:41] LABS: Alanine Aminotransferase 15 U/L (0-33); Albumin Level 4.7 g/dL (3.5-5.2); Alkaline Phosphatase 85 U/L (35-105); Anion Gap 12.4 (5-19); Aspartate Amino Transferase 21 U/L (0-32); Blood Urea Nitrogen 25 mg/dL (8-23); Calcium 10.7 mg/dL (8.5-10.5); Carbon Dioxide 28 mmol/L (22-29); Chloride 105 mmol/L (98-107); Globulin 2.2 g/dL (1.3-4.6); Glucose 92 mg/dL (65-115); Lipase 72 U/L (13-60); Osmolality Calculated 296 mOsm/kg (285-295); Potassium 4.4 mmol/L (3.5-5.1); Sodium 141 mmol/L (136-145); Total Protein 6.9 g/dL (6.6-8.7)
[2025-08-15 23:53] LABS: Creatinine Clr Calc Pharmacy 46.0395
--- NOTE | 2025-08-16 00:34 | W.ED.SOB ---
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 States she had a burning sensation in her chest since resolved. She is seen here 2 days ago for the same and had a normal workup. Blood pressure here has been normal. She denies any cough or fever Related Data Home Medications ?Medication ?Instructions ?Recorded ?Confirmed nitroglycerin 0.4 mg sublingual 0.4 mg sublingual Q5M PRN chest 11/07/19 08/06/25 tablet (Nitrostat) pains levothyroxine 75 mcg tablet 75 mcg PO DAILY@0700 hypothyroidism 11/11/20 08/06/25 (Euthyrox) tramadol 50 mg tablet 50 mg PO Q6H PRN Pain 11/11/20 08/06/25 potassium chloride 20 mEq 20 meq PO BID@0700,1900 12/22/20 08/06/25 tablet,extended release meclizine 12.5 mg tablet 12.5 mg PO Q6H PRN nausea and 04/19/21 08/06/25 vomiting bismuth subsalicylate 525 mg/15 mL 525 mg PO Q8H PRN 08/15/21 08/06/25 oral suspension (Pepto-Bismol Max Nausea/vomiting/diarrhea St) mirtazapine 15 mg tablet 15 mg PO QAM 05/21/24 08/06/25 pantoprazole 40 mg tablet,delayed 40 mg PO QAM 12/05/24 08/06/25 release amiodarone 200 mg tablet 200 mg PO PRN PRN if blood 01/31/25 08/06/25 pressure is over 120 cetirizine 10 mg tablet (Zyrtec) 10 mg PO PRN PRN Allergy Symptoms 01/31/25 08/06/25 hydroxyzine HCl 25 mg tablet 25 mg PO TID PRN Anxiety 01/31/25 08/06/25 ipratropium bromide 42 mcg (0.06 2 spray intranasal TID PRN 01/31/25 08/06/25 %) nasal spray ALLERGIES magnesium hydroxide 400 mg/5 mL 30 ml PO PRN PRN bowel movemaent 01/31/25 08/06/25 oral suspension (Milk of Magnesia) polyethylene glycol 3350 17 17 g PO QAM Constipation 01/31/25 08/06/25 gram/dose oral powder (Miralax) warfarin 2.5 mg tablet See Rx Instructions .Route .COMPLEX 01/31/25 08/06/25 warfarin 3 mg tablet See Rx Instructions .Route .COMPLEX 05/27/25 08/06/25 folic acid 1 mg tablet 1 mg PO DAILY 06/22/25 08/06/25 acetaminophen 500 mg tablet 1,000 mg PO Q8H 06/25/25 08/06/25 ddlxc-itcqzeeg-kwf-turp-pet 1 ea topical PRN PRN thick toe 06/25/25 08/06/25 topical ointment nails cyanocobalamin (vitamin B-12) 2,000 mcg sublingual DAILY 06/25/25 08/06/25 1,000 mcg sublingual tablet methyl salicylate 30 %-menthol 10 1 applic topical TID PRN sore 06/25/25 08/06/25 % topical cream (Icy Hot) muscles spironolactone 25 mg tablet 25 mg PO QAM 06/25/25 08/06/25 aspirin 81 mg tablet,delayed 81 mg PO DAILY 07/27/25 08/06/25 release ondansetron 4 mg disintegrating 4 mg PO Q6H PRN Nausea And Vomiting 07/27/25 08/06/25 tablet Previous Rx's ?Medication ?Instructions ?Recorded furosemide 40 mg tablet 60 mg (1.5 x 40 mg) PO DAILY@0700 05/18/23 edema #135 tabs metoprolol tartrate 100 mg tablet 100 mg PO BID #180 tabs 12/05/24 galantamine 8 mg 24 hr 8 mg PO QAM 90 days #90 caps 05/06/25 capsule,extended release memantine 5 mg tablet 5 mg PO BID #180 tabs 05/06/25 atorvastatin 40 mg tablet 40 mg PO BEDTIME #30 tabs 06/29/25 Allergies Allergy/AdvReac Type Severity Reaction Status Date / Time diltiazem (From Cardize) Allergy Unknown Verified 08/06/25 09:38 morphine Allergy Unknown Verified 08/06/25 09:38 Review of Systems Resp: Reports: dyspnea PFSH ED PFSH: Medical History (Updated 08/16/25 @ 01:22 by Piyush Foster MD) Chronic anxiety History of iron deficiency anemia Alzheimer disease CKD (chronic kidney disease) stage 2, GFR 60-89 ml/min Hypertension CAD (coronary artery disease) CHF (congestive heart failure) Insomnia Hypothyroid Hyperlipidemia Chronic neck and back pain GERD (gastroesophageal reflux disease) Chronic atrial fibrillation Chronic constipation Surgical History History of heart artery stent Coronary angioplasty/stent placement in 2011 and in 2012 Hx of colonoscopy 2017 H/O esophagogastroduodenoscopy 2011, 2016, and 2017 S/P cholecystectomy H/O section Mitral valve replaced mechanical valve replacement 1994 Family History Other CAD (coronary artery disease) Diabetes Social History Smoking and tobacco/nicotine status: never used tobacco/nicotine Alcohol intake: never Substance/Drug Use: never Housing: Assisted Living Facility Marital status: Single Number of children: 1 Current occupational status: disabled Current gender identity: Female Female Reproductive History: Para: 1 Physical Exam Const: COMMON NORMALS: no acute distress, patient oriented x3 and healthy appearing HENMT: COMMON NORMALS: normocephalic and atraumatic HEAD & SCALP: normocephalic and atraumatic Eye: COMMON NORMALS: conjunctivae normal CONJUNCTIVA: Yes conjunctivae normal Neck/C-Spine: COMMON NORMALS: full ROM and supple Chest: COMMONS NORMALS: normal inspection of the chest and normal palpation of entire chest wall Resp: COMMON NORMALS: normal respiratory effort, No retractions, No use of accessory muscles and clear to auscultation bilaterally AUSCULTATION: clear to auscultation bilaterally Cardio: COMMON NORMALS: regular rate, regular rhythm and No murmurs present (Cardio) RATE: regular rate RHYTHM: regular rhythm GI: COMMON NORMALS: Normal to inspection, nondistended, normoactive bowel sounds present, Soft to palpation, non-tender and no masses PALPATION: Yes Soft to palpation Extremity: COMMON NORMALS: normal to inspection and full ROM Neuro: COMMON NORMALS: patient oriented x3, moves all extremities and no focal motor deficits Psych: COMMON NORMALS: mental status grossly normal, Normal thought process present and cooperative THOUGHT PROCESS: Normal thought process present Skin: COMMON NORMALS: no rashes or lesions noted and no wounds GENERAL SKIN EXAM: no rashes or lesions noted Course Vital Signs: Vital signs: Vital Signs Temperature 98.0 F 08/15/25 22:50 Pulse Rate 86 08/16/25 00:36 Respiratory Rate 18 08/16/25 00:36 Blood Pressure 147/103 08/16/25 00:36 Pulse Oximetry 92 08/16/25 00:36 Oxygen Delivery Me thod Room Air 08/16/25 00:36 Clincial Decision Support The following clinical decision support tools were used to aid in care of the patient HEART Score -> History: Slightly Suspicous, EKG: Normal, Age: 65 or more yrs, Risk Factors: 1 or 2 Risk Factors, Troponin: Baseline Trop <16 ng/L. Resulting HEART Score: 3. MDM - SOB/Dyspnea Medical Decision Making Patient presents here with chest pain along with shortness of breath differential included CHF, pneumonia, PE, ACS. Patient's chest x-ray here is normal no signs pneumonia no signs of CHF. Patient has no symptoms of a PE with normal heart rate vitals including pulse ox are normal. Initial repeat troponins here are negative no signs of ACS. EKG here as interpreted by me shows A-fib heart rate [address] elevation QRS 119 QTc 423 no change from previous EKGs. I did go over labs and imaging and EKG with patient she is stable for discharge she is follow-up with her PCP in 2 to 4 days she understands agrees to plan. Medical Records I reviewed the patient's medical records. Lab Data I reviewed the patient's lab results. 08/15/25 23:01 08/15/25 23:01 Labs/Radiology: Laboratory Results WBC 6.41 10^3/uL (3.29-11.43) 08/15/25 23: RBC 3.49 10^6/uL (3.85-5.65) L 08/15/25 23:01 Hgb 12.30 g/dL (11.27-16.99) 08/15/25 23: Hct 37.9 % (36-47) 08/15/25 23: MCV 108.6 fl (85-98) H 08/15/25 23: MCH 35.2 pg (27-33) H 08/15/25 23: MCHC 32.5 g/dL (30-55) 08/15/25 23: RDW 13.2 % (12.1-15.1) 08/15/25 23: Plt Count 219 10^3/cmm (157-399) 08/15/25 23: MPV 9.4 fL (7.4-10.4) 08/15/25 23: Neut % (Auto) 43.9 % 08/15/25: Lymph % (Auto) 39.2 % 08/15/25: Alexander % (Auto) 10.5 % 08/15/25: Eos % (Auto) 4.4 % 08/15/25 23: Baso % (Auto) 1.7 % 08/15/25: Neut # (Auto) 2.82 10^3/uL (1.8-7.7) 08/15/25 23: Lymph # (Auto) 2.5 10^3/uL (0.8-4.8) 08/15/25 23:01 Alexander # (Auto) 0.7 10^3/uL (0.2-0.9) 08/15/25 23: Eos # (Auto) 0.3 10^3/uL (0.0-0.8) 08/15/25 23: Baso # (Auto) 0.1 10^3/uL (0.0-0.1) 08/15/25 23: Nucleated RBC % (auto) 0 % 08/15/25 23: Nucleated RBCs # 0.0 /100WBC 08/15/25 23: PT 20.70 SECONDS (12.1-14.9) H 08/15/25 23: INR 1.66 (0.8-1.2) H 08/15/25 23:01 Sodium 141 mmol/L (136-145) 08/15/25 23: Potassium 4.4 mmol/L (3.5-5.1) 08/15/25 23:01 Chloride 105 mmol/L (98-107) 08/15/25 23:01 Carbon Dioxide 28 mmol/L (22-29) 08/15/25 23:01 Anion Gap 12.4 (5-19) 08/15/25 23:01 BUN 25 mg/dL (8-23) H 08/15/25 23:01 Creatinine 1.0 mg/dL (0.5-0.9) H 08/15/25 23:01 GFR Calculation Not Reportable 08/15/25 23: Glucose 92 mg/dL (65-115) 08/15/25 23:01 Calculated Osmolality 296 mOsm/kg (285-295) H 08/15/25 23:01 Calcium 10.7 mg/dL (8.5-10.5) H 08/15/25 23:01 Total Bilirubin 0.9 mg/dL (0.15-1.2) 08/15/25 23:01 AST 21 U/L (0-32) 08/15/25 23:01 ALT 15 U/L (0-33) 08/15/25 23:01 Alkaline Phosphatase 85 U/L (35-105) 08/15/25 23:01 Troponin T Baseline 15 ng/L (0-10) H 08/15/25 23:01 Delta Troponin T 0.02 ABS# (0-10) 08/16/25 00:57 NT-Pro-B Natriuret Pep 915 pg/mL (0-450) H 08/15/25 23:01 Total Protein 6.9 g/dL (6.6-8.7) 08/15/25 23:01 Albumin 4.7 g/dL (3.5-5.2) 08/15/25 23:01 Globulin 2.2 g/dL (1.3-4.6) 08/15/25 23:01 Lipase 72 U/L (13-60) H 08/15/25 23:01 All radiology interpretation(s) finalized by discharge EKG Data EKG 1: I personally reviewed and interpreted this EKG as follows: EKG Interpretation Date: 08/15/25 EKG interpretation time: 22:56 Interpretation: afib hr [address] elevation qrs 119 qtc 423 no change from previous Discharge Plan Discharge Patient Disposition: Home Clinical Impression: Chest pain Condition: Stable Prescriptions: No Action nitroglycerin [Nitrostat] 0.4 mg tablet, sublingual 0.4 mg SUBLINGUAL Q5M PRN (Reason: chest pains) Pepto-Bismol Max St 525 mg/15 mL suspension 525 mg PO Q8H PRN (Reason: Nausea/vomiting/diarrhea) Rx Instructions: do not exceed 8 doses in a 24 hour period meclizine 12.5 mg tablet 12.5 mg PO Q6H PRN (Reason: nausea and vomiting ) potassium chloride 20 mEq tablet extended release 20 meq PO BID@0700,1900 mirtazapine 15 mg tablet 15 mg PO QAM metoprolol tartrate 100 mg tablet 100 mg PO BID Qty: 180 3RF folic acid 1 mg tablet 1 mg PO DAILY furosemide 40 mg tablet 60 mg PO DAILY@0700 Qty: 135 0RF galantamine 8 mg capsule,ext rel. pellets 24 hr 8 mg PO QAM 90 Days Qty: 90 3RF memantine 5 mg tablet 5 mg PO BID Qty: 180 3RF tramadol 50 mg Tablet 50 mg PO Q6H PRN (Reason: Pain) levothyroxine [Euthyrox] 75 mcg tablet 75 mcg PO DAILY@0700 pantoprazole 40 mg tablet,delayed release (DR/EC) 40 mg PO QAM cetirizine [Zyrtec] 10 mg Tablet 10 mg PO PRN PRN (Reason: Allergy Symptoms) warfarin 2.5 mg tablet See Rx Instructions .ROUTE .COMPLEX Rx Instructions: Take 1 tablet by mouth on Sunday , Sunday , , Sunday , and Sunday hydroxyzine HCl 25 mg tablet 25 mg PO TID PRN (Reason: Anxiety) polyethylene glycol 3350 [Miralax] 17 gram/dose Powder 17 g PO QAM ipratropium bromide 42 mcg (0.06 %) spray,non-aerosol 2 spray INTRANASAL TID PRN (Reason: ALLERGIES) magnesium hydroxide [Milk of Magnesia] 400 mg/5 mL Suspension 30 ml PO PRN PRN (Reason: bowel movemaent ) amiodarone 200 mg tablet 200 mg PO PRN PRN (Reason: if blood pressure is over 120) cyanocobalamin (vitamin B-12) 1,000 mcg Tablet, Sublingual 2,000 mcg SUBLINGUAL DAILY zgmmq-adybixdf-jpv-turp-pet Ointment 1 ea TOPICAL PRN PRN (Reason: thick toe nails) acetaminophen 500 mg Tablet 1,000 mg PO Q8H Icy Hot 30-10 % Cream 1 applic TOPICAL TID PRN (Reason: sore muscles) spironolactone 25 mg tablet 25 mg PO QAM atorvastatin 40 mg Tablet 40 mg PO BEDTIME Qty: 30 0RF aspirin [Aspir-81] 81 mg Tablet,Delayed Release (Dr/Ec) 81 mg PO DAILY ondansetron 4 mg tablet,disintegrating 4 mg PO Q6H PRN (Reason: Nausea And Vomiting) warfarin 3 mg tablet See Rx Instructions .ROUTE .COMPLEX Rx Instructions: Take 1 tablet by mouth on Sunday and Sunday Discharge Orders: Discharge ED (Routine); Ordered 08/16/25 Ordered By: Piyush Foster Referrals: Danny Marmolejo MD [Primary Care Provider, Family Practice] Discharge Diet: Advance as tolerated Discharge Activity: Resume usual activity Patient Instructions: Chest Pain (ED) Print Language: Palestinian Coding Level of Care Code ED Draughtsman for Indra Carmona
[2025-08-16 00:36] VITALS: BP 147/103; PULSE 86; RESP 18; O2SAT 92
[2025-08-16 00:55] LABS: NT Pro B Type Natriuretic Pept 915 pg/mL (0-450)
[2025-08-16 01:21] LABS: Troponin 5 2HR 15.02 ng/L (0-10); Troponin 5 2HR Delta 0.02 ABS# (0-10)
[2025-08-16 01:35] VITALS: BP 124/81; PULSE 80; RESP 15; TEMP 36; O2SAT 92
== END 2025-08-16 01:42 | disposition home or self-care (01) ==
PROVIDERS: Emergency Provider Emergency Medicine; PCP Family Medicine
DX: R07.9 Chest pain, unspecified (principal); Z79.01 Long term (current) use of anticoagulants; Z79.82 Long term (current) use of aspirin; I25.10 Atherosclerotic heart disease of native coronary artery without angina pectoris; E78.5 Hyperlipidemia, unspecified; I13.0 Hypertensive heart and chronic kidney disease with heart failure and stage 1 through stage 4 chronic kidney disease, or unspecified chronic kidney disease; N18.2 Chronic kidney disease, stage 2 (mild); I50.9 Heart failure, unspecified
CPT/HCPCS: 36415; 71045; 80053; 83690; 83880; 84484; 85025; 85610; 93005; 99285

== ENCOUNTER → 2025-09-04 11:41 | Outpatient (BNVA) | payer MEDICARE, MEDICAID, SELFPAY | PROVIDERS: PCP Family Medicine; Visit Provider Internal Medicine Cardiovascular Disease | DX: R07.89 Other chest pain (principal); I48.20 Chronic atrial fibrillation, unspecified; Z79.01 Long term (current) use of anticoagulants; Z79.82 Long term (current) use of aspirin; I25.10 Atherosclerotic heart disease of native coronary artery without angina pectoris; E78.5 Hyperlipidemia, unspecified; I10 Essential (primary) hypertension; I36.1 Nonrheumatic tricuspid (valve) insufficiency; Z95.2 Presence of prosthetic heart valve; Z95.5 Presence of coronary angioplasty implant and graft; R06.09 Other forms of dyspnea; R06.02 Shortness of breath | CPT/HCPCS: 36415; 80048; 83880; 99214 ==

== ENCOUNTER 2025-09-06 06:27 | Emergency (ER) | payer MEDICARE, MEDICAID, SELFPAY ==
[2025-09-06 06:18] VITALS: BP 129/90; PULSE 66; RESP 18; TEMP 37.1; BMI 27.8
--- NOTE | 2025-09-06 06:21 | XRR_ITS ---
PROCEDURE INFORMATION: Exam: XR Chest Exam date and time: 09/06/2025 6:39 AM Age: 74 years old Clinical indication: Chest pressure; Prior surgery; Surgery date: 6+ months; Surgery type: Mitral valve replacement. Coronary stents; C/O chest pain TECHNIQUE: Imaging protocol: Radiologic exam of the chest. Views: 1 view. COMPARISON: CR (CHEST, ) 08/16/2025 12:29 AM FINDINGS: Lungs: Prominent reticular interstitial pulmonary changes are stable. Negative for consolidation. Pleural spaces: Unremarkable. No pleural effusion. No pneumothorax. Heart/Mediastinum: Cardiac enlargement. CABG. Bones/joints: Unremarkable. XR/XR chest 1V portable [id number] IMPRESSION: 1. No focal acute pulmonary disease. 2. Negative for changes.
--- NOTE | 2025-09-06 06:21 | ECG_ITS ---
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 Measurements Intervals [place] Rate: 80 P: 0 AR: 0 QRS: 17 QRSD: 117 T: 15 QT: 392 QTc: 454 Interpretive Statements ATRIAL FIBRILLATION MODERATE INTRAVENTRICULAR CONDUCTION DELAY [110+ ms QRS DURATION] ABNORMAL RHYTHM ECG Compared to ECG 08/15/2025 22:56:18 Intraventricular conduction delay now present Incomplete right bundle-branch block no longer present Electronically Signed On 09-06-2025 20:14:44 CLAM GROWER by Katrin Petit M.D. [email or web address]
--- NOTE | 2025-09-06 06:22 | W.ED.CHESTPA ---
HPI - Chest Pain General: Chief Complaint: Chest Pain Stated Complaint: chest pain History of Present Illness: 74-year-old female presents emergency room with complaints of chest pain. Chest pain began while she was sleeping. She is given nitro had significant improvement. Patient describes it as a chest pressure is nearly resolved when she arrives here. She received 1 nitro and 4 aspirin from EMS and route. Patient has known history of coronary artery disease ischemic congestive cardiomyopathy as well as Alzheimer's dementia and chronic kidney disease. She arrives via ambulance from local [facility]. Has a history of heart disease. Has been to the emergency room several times for this chest pain. Stress test done May of this year showed a small to medium size area of moderate ischemia in inferior lateral wall region. She subsequently underwent a angiogram on 06/27/2025, three-vessel disease. They advised medical management. Associated symptoms: Deny abdominal pain, dyspnea or fever(s) Related Data Home Medications ?Medication ?Instructions ?Recorded ?Confirmed nitroglycerin 0.4 mg sublingual 0.4 mg sublingual Q5M PRN chest 11/07/19 08/06/25 tablet (Nitrostat) pains levothyroxine 75 mcg tablet 75 mcg PO DAILY@0700 hypothyroidism 11/11/20 09/06/25 (Euthyrox) tramadol 50 mg tablet 50 mg PO Q6H PRN Pain 11/11/20 09/06/25 meclizine 12.5 mg tablet 12.5 mg PO Q6H PRN nausea and 04/19/21 08/06/25 vomiting bismuth subsalicylate 525 mg/15 mL 525 mg PO Q8H PRN 08/15/21 08/06/25 oral suspension (Pepto-Bismol Max Nausea/vomiting/diarrhea St) mirtazapine 15 mg tablet 15 mg PO QAM 05/21/24 08/06/25 amiodarone 200 mg tablet 200 mg PO DAILY PRN hold if blood 01/31/25 09/06/25 pressure below 110/60 cetirizine 10 mg tablet (Zyrtec) 10 mg PO PRN PRN Allergy Symptoms 01/31/25 08/06/25 hydroxyzine HCl 25 mg tablet 25 mg PO TID PRN Anxiety 01/31/25 08/06/25 ipratropium bromide 42 mcg (0.06 2 spray intranasal TID PRN 01/31/25 08/06/25 %) nasal spray ALLERGIES magnesium hydroxide 400 mg/5 mL 30 ml PO PRN PRN bowel movemaent 01/31/25 08/06/25 oral suspension (Milk of Magnesia) polyethylene glycol 3350 17 17 g PO QAM Constipation 01/31/25 09/06/25 gram/dose oral powder (Miralax) warfarin 2.5 mg tablet See Rx Instructions .Route .COMPLEX 01/31/25 08/06/25 warfarin 3 mg tablet See Rx Instructions .Route .COMPLEX 05/27/25 08/06/25 folic acid 1 mg tablet 1 mg PO DAILY 06/22/25 09/06/25 acetaminophen 500 mg tablet 1,000 mg PO Q8H 06/25/25 09/06/25 uvqpg-hoyccwkg-wfi-turp-pet 1 ea topical PRN PRN thick toe 06/25/25 08/06/25 topical ointment nails cyanocobalamin (vitamin B-12) 2,000 mcg sublingual DAILY 06/25/25 09/06/25 1,000 mcg sublingual tablet methyl salicylate 30 %-menthol 10 1 applic topical TID PRN sore 06/25/25 09/06/25 % topical cream (Icy Hot) muscles spironolactone 25 mg tablet 25 mg PO QAM 06/25/25 08/06/25 aspirin 81 mg tablet,delayed 81 mg PO DAILY 07/27/25 08/06/25 release ondansetron 4 mg disintegrating 4 mg PO Q6H PRN Nausea And Vomiting 07/27/25 08/06/25 tablet Previous Rx's ?Medication ?Instructions ?Recorded furosemide 40 mg tablet 60 mg (1.5 x 40 mg) PO DAILY@0700 05/18/23 edema #135 tabs metoprolol tartrate 100 mg tablet 100 mg PO BID #180 tabs 12/05/24 galantamine 8 mg 24 hr 8 mg PO QAM 90 days #90 caps 05/06/25 capsule,extended release memantine 5 mg tablet 5 mg PO BID #180 tabs 05/06/25 atorvastatin 40 mg tablet 40 mg PO BEDTIME #30 tabs 06/29/25 isosorbide mononitrate 30 mg 30 mg PO DAILY #30 tabs 11/09/25 tablet,extended release 24 hr Allergies Allergy/AdvReac Type Severity Reaction Status Date / Time diltiazem (From Cardizem) Allergy Unknown Verified 09/06/25 06:26 morphine Allergy Unknown Verified 09/06/25 06:26 Review of Systems Const: Denies: fever(s) or chills Card: Reports: chest pain Resp: Denies: dyspnea GI: Denies: abdominal pain : Denies: dysuria, urinary frequency or urinary urgency Musc: Denies: neck pain or back pain Skin/Breast: Denies: rash PFSH ED PFSH: Medical History Chronic anxiety History of iron deficiency anemia Alzheimer disease CKD (chronic kidney disease) stage 2, GFR 60-89 ml/min Hypertension CAD (coronary artery disease) CHF (congestive heart failure) Insomnia Hypothyroid Hyperlipidemia Chronic neck and back pain GERD (gastroesophageal reflux disease) Chronic atrial fibrillation Chronic constipation Surgical History History of heart artery stent Coronary angioplasty/stent placement in 2011 and in 2012 Hx of colonoscopy 2018 H/O esophagogastroduodenoscopy 2011, 2016, and 2018 S/P cholecystectomy H/O section Mitral valve replaced mechanical valve replacement 1994 Family History Other CAD (coronary artery disease) Diabetes Social History Smoking and tobacco/nicotine status: never used tobacco/nicotine Alcohol intake: never Substance/Drug Use: never Housing: Assisted Living Facility Marital status: Single Number of children: 1 Current occupational status: disabled Current gender identity: Female Female Reproductive History: Para: 1 Physical Exam Const: GENERAL APPEARANCE: cooperative and comfortable ORIENTATION/CONSCIOUSNESS: Yes awake HENMT: COMMON NORMALS: normocephalic, atraumatic and hearing grossly normal bilaterally HEAD & SCALP: normocephalic and atraumatic Resp: COMMON NORMALS: normal respiratory effort, No retractions, No use of accessory muscles and clear to auscultation bilaterally AUSCULTATION: clear to auscultation bilaterally Cardio: COMMON NORMALS: regular rate, regular rhythm and No murmurs present (Cardio) RATE: regular rate RHYTHM: regular rhythm GI: COMMON NORMALS: Soft to palpation and No hepatosplenomegaly present AUSCULTATION: Yes normoactive bowel sounds PALPATION: Yes Soft to palpation, No Tenderness to palpation present (GI), No Guarding due to palpation present (GI) and Yes No hepatosplenomegaly present Extremity: COMMON NORMALS: normal to inspection, capillary refill normal, no clubbing, cyanosis or edema, no calf tenderness and no pedal edema Skin: COMMON NORMALS: no rashes or lesions noted GENERAL SKIN EXAM: no rashes or lesions noted Course Vital Signs: Vital signs: Vital Signs Temperature 98.7 F 09/06/25 06:18 Pulse Rate 66 09/06/25 08:14 Respiratory Rate 21 H 09/06/25 06:26 Blood Pressure 125/90 09/06/25 06:26 Pulse Oximetry 97 09/06/25 08:14 Oxygen Delivery Me thod Room Air 09/06/25 08:14 MDM - Chest Pain Medical Decision Making Patient initially seen evaluated laboratory studies ordered including cardiac enzymes CBC CMP chest x-ray. Evaluate for acute coronary syndrome pneumonia decompensated heart failure. No further chest pain at this point. No sign of decompensated heart failure. Cardiac enzymes negative EKG does not show any acute changes will discharge patient home. Patient had cath in June 27 of this year they advised medical management. We added isosorbide mononitrate 30 mg once daily and follow-up with cardiology next week. Medical Records I reviewed the patient's medical records. Lab Data I reviewed the patient's lab results. 09/06/25 06:41 09/06/25 06:41 Radiology Impressions Chest X-Ray 09/06/25 06:21 IMPRESSION: 1. No focal acute pulmonary disease. 2. Negative for changes. Laboratory Results WBC 4.61 10^3/uL (3.29-11.43) 09/06/25 06:41 Corrected WBC Cancelled 09/06/25 06:00 RBC 3.22 10^6/uL (3.85-5.65) L 09/06/25 06:41 Hgb 11.50 g/dL (11.27-16.99) 09/06/25 06:41 Hct 34.4 % (36-47) L 09/06/25 06:41 MCV 106.8 fl (85-98) H 09/06/25 06:41 MCH 35.7 pg (27-33) H 09/06/25 06:41 MCHC 33.4 g/dL (30-55) 09/06/25 06:41 RDW 12.9 % (12.1-15.1) 09/06/25 06:41 Plt Count 192 10^3/cmm (157-399) 09/06/25 06:41 MPV 9.0 fL (7.4-10.4) 09/06/25 06:41 Gran % Cancelled 09/06/25 06:00 Neut % (Auto) 50.5 % 09/06/25 06:41 Lymph % (Auto) 29.5 % 09/06/25 06:41 [place] % (Auto) 11.3 % 09/06/25 06:41 Eos % (Auto) 6.5 % 09/06/25 06:41 Baso % (Auto) 2.0 % 09/06/25 06:41 Neut # (Auto) 2.33 10^3/uL (1.8-7.7) 09/06/25 06:41 Lymph # (Auto) 1.4 10^3/uL (0.8-4.8) 09/06/25 06:41 [place] # (Auto) 0.5 10^3/uL (0.2-0.9) 09/06/25 06:41 Eos # (Auto) 0.3 10^3/uL (0.0-0.8) 09/06/25 06:41 Baso # (Auto) 0.1 10^3/uL (0.0-0.1) 09/06/25 06:41 Absolute Gran (auto) Cancelled 09/06/25 06:00 Nucleated RBC % (auto) 0 % 09/06/25 06:41 Nucleated RBCs # 0.0 /100WBC 09/06/25 06:41 Sodium 140 mmol/L (136-145) 09/06/25 06:41 Potassium 4.0 mmol/L (3.5-5.1) 09/06/25 06:41 Chloride 105 mmol/L (98-107) 09/06/25 06:41 Carbon Dioxide 25 mmol/L (22-29) 09/06/25 06:41 Anion Gap 14.0 (5-19) 09/06/25 06:41 BUN 18 mg/dL (8-23) 09/06/25 06:41 Creatinine 0.8 mg/dL (0.5-0.9) 09/06/25 06:41 GFR Calculation Not Reportable 09/06/25 06:41 Glucose 92 mg/dL (65-115) 09/06/25 06:41 Calculated Osmolality 292 mOsm/kg (285-295) 09/06/25 06:41 Calcium 10.1 mg/dL (8.5-10.5) 09/06/25 06:41 Total Bilirubin 0.8 mg/dL (0.15-1.2) 09/06/25 06:41 AST 21 U/L (0-32) 09/06/25 06:41 ALT 13 U/L (0-33) 09/06/25 06:41 Alkaline Phosphatase 87 U/L (35-105) 09/06/25 06:41 Troponin T Baseline 13 ng/L (0-10) H 09/06/25 06:41 Troponin T 120 Minute 11.00 ng/L (0-10) H 09/06/25 08:47 Delta Troponin T -2.00 ABS# (0-10) L 09/06/25 08:47 Total Protein 6.6 g/dL (6.6-8.7) 09/06/25 06:41 Albumin 4.4 g/dL (3.5-5.2) 09/06/25 06:41 Globulin 2.2 g/dL (1.3-4.6) 09/06/25 06:41 All radiology interpretation(s) finalized by discharge EKG Data EKG 1: I personally reviewed and interpreted this EKG as follows: Interpretation: EKG 09/06/2025 6:23 AM atrial fibrillation rate of 80. NC interval [address] changes noted EKG compared to 08/15/2025 EKG 2: I personally reviewed and interpreted this EKG as follows: Interpretation: EKG 09/06/2025 8:32 AM atrial fibrillation with a rate of 85 QTc of 459 NC interval not measurable. No acute EKG changes noted on this EKG compared to EKG done earlier same day no acute changes Discharge Plan Discharge Patient Disposition: Home Clinical Impression: Atypical chest pain, CKD (chronic kidney disease) stage 2, GFR 60-89 ml/min, Alzheimer disease Condition: Stable Prescriptions: New isosorbide mononitrate 30 mg tablet extended release 24 hr 30 mg PO DAILY Qty: 30 0RF No Action nitroglycerin [Nitrostat] 0.4 mg tablet, sublingual 0.4 mg SUBLINGUAL Q5M PRN (Reason: chest pains) Pepto-Bismol Max St 525 mg/15 mL suspension 525 mg PO Q8H PRN (Reason: Nausea/vomiting/diarrhea) Rx Instructions: do not exceed 8 doses in a 24 hour period meclizine 12.5 mg tablet 12.5 mg PO Q6H PRN (Reason: nausea and vomiting ) mirtazapine 15 mg tablet 15 mg PO QAM metoprolol tartrate 100 mg tablet 100 mg PO BID Qty: 180 3RF folic acid 1 mg tablet 1 mg PO DAILY furosemide 40 mg tablet 60 mg PO DAILY@0700 Qty: 135 0RF galantamine 8 mg capsule,ext rel. pellets 24 hr 8 mg PO QAM 90 Days Qty: 90 3RF memantine 5 mg tablet 5 mg PO BID Qty: 180 3RF tramadol 50 mg Tablet 50 mg PO Q6H PRN (Reason: Pain) levothyroxine [Euthyrox] 75 mcg tablet 75 mcg PO DAILY@0700 cetirizine [Zyrtec] 10 mg Tablet 10 mg PO PRN PRN (Reason: Allergy Symptoms) warfarin 2.5 mg tablet See Rx Instructions .ROUTE .COMPLEX Rx Instructions: Take 1 tablet by mouth on Sunday , Sunday , , Sunday , and Sunday hydroxyzine HCl 25 mg tablet 25 mg PO TID PRN (Reason: Anxiety) polyethylene glycol 3350 [Miralax] 17 gram/dose Powder 17 g PO QAM ipratropium bromide 42 mcg (0.06 %) spray,non-aerosol 2 spray INTRANASAL TID PRN (Reason: ALLERGIES) magnesium hydroxide [Milk of Magnesia] 400 mg/5 mL Suspension 30 ml PO PRN PRN (Reason: bowel movemaent ) amiodarone 200 mg tablet 200 mg PO DAILY PRN (Reason: hold if blood pressure below 110/60) cyanocobalamin (vitamin B-12) 1,000 mcg Tablet, Sublingual 2,000 mcg SUBLINGUAL DAILY ssqjg-roulnkiw-nng-turp-pet Ointment 1 ea TOPICAL PRN PRN (Reason: thick toe nails) acetaminophen 500 mg Tablet 1,000 mg PO Q8H Icy Hot 30-10 % Cream 1 applic TOPICAL TID PRN (Reason: sore muscles) spironolactone 25 mg tablet 25 mg PO QAM atorvastatin 40 mg Tablet 40 mg PO BEDTIME Qty: 30 0RF aspirin [Aspir-81] 81 mg Tablet,Delayed Release (Dr/Ec) 81 mg PO DAILY ondansetron 4 mg tablet,disintegrating 4 mg PO Q6H PRN (Reason: Nausea And Vomiting) warfarin 3 mg tablet See Rx Instructions .ROUTE .COMPLEX Rx Instructions: Take 1 tablet by mouth on Sunday and Sunday Discharge Orders: Discharge ED (Routine); Ordered 09/06/25 Ordered By: Josse Ferrer Referrals: Danny Marmolejo MD [Primary Care Provider, [facility]] Discharge Diet: Usual diet Discharge Activity: Increase activity as tolerated Patient Instructions: Opioid Safety, Pain Management, Patient Portal & Radha Instructions Activity Restrictions/Additional Instructions: Thank you for choosing [facility] for your healthcare needs today. It is very important that you follow up as instructed or that you return to the Emergency Department should you have concerns or if your condition changes or worsens in any way. Emergency department visits are focused on emergent conditions, in some cases you may require further evaluation on an outpatient basis. You were seen in the emergency room with complaints chest comfort your EKG did not show any acute change your cardiac enzymes were also normal no evidence of decompensated heart failure. Will have you started on Isorbid mononitrate 30 mg once daily and follow-up with Dr. Petit within the next week. (Please note that included in your discharge packet is information concerning opioid safety and pain management. This information is given to all patients were discharged from the ER regardless of their discharge diagnosis or the medicines they usually take or are prescribed.) Print Language: Kosovan Coding Level of Care Code ED Cognos Administrator for Chg Fwd Heart Score HEART Score Components History: Slightly Suspicous EKG: Normal Age: 65 or more yrs Risk Factors: >/=3 Risk Factors Troponin: Baseline Trop <16 ng/L HEART Score RESULT HEART Score: 4
[2025-09-06 06:26] VITALS: BP 125/90; PULSE 82; RESP 21; O2SAT 93
--- OUTSIDE RECORDS SUMMARY | 2025-09-06 06:33 | XMS_ITS | Encounter Summary ---
Author Organization [facility] Address [address] [place] [address] Care Team Providers Care Camp Tender Name Role Phone Rico Muiñz MD, Sharan Jaime Primary Care Provider Encounter Details Date Type Department Care Team (Latest Contact Info) Description 09/15/1998 Outpatient Historical [facility] Sharan Gómez Jr., MD [address] [place] [address] Unspecified essential hypertension (Primary Dx); Esophagitis, unspecified; custodial (current) use of anticoagulants; Need vaccination-viral disease Social History Tobacco Use Types Packs/Day Years Used Date Smoking Tobacco: Never Assessed Comments Unknown Sex and Gender Information Value Date Recorded Sex Assigned at Not on file Legal Sex Female 5:42 AM GUARD DANCE HALL Gender Identity Not on file Sexual Orientation Not on file documented as of this encounter Plan of Treatment Not on file documented as of this encounter Visit Diagnoses Diagnosis Unspecified essential hypertension- Primary Esophagitis, unspecified custodial (current) use of anticoagulants Long-term (current) use of anticoagulants Need vaccination-viral disease Need for prophylactic vaccination and inoculation against other viral diseases documented in this encounter Care Teams Camp Tender Relationship Specialty Start Date End Date Sharan Gómez Jr., MD [address] [place] [phone] PCP - General 08/10/05 documented as of this encounter
--- OUTSIDE RECORDS SUMMARY | 2025-09-06 06:33 | XMS_ITS | Encounter Summary ---
Author Organization [facility] Address [address] [place] [address] Care Team Providers Care Clinical Manager Home Care Name Role Phone Rico Muñiz MD, Sharan Jaime Primary Care Provider Encounter Details Date Type Department Care Team (Latest Contact Info) Description 04/01/1999 Outpatient Historical [facility] Sharan Gómez Jr., MD [address] [place] [address] Type II or unspecified type diabetes mellitus without mention of complication, not stated as uncontrolled (Primary Dx); Dietary surveil/family service counselor Social History Tobacco Use Types Packs/Day Years Used Date Smoking Tobacco: Never Assessed Comments Unknown Sex and Gender Information Value Date Recorded Sex Assigned at Not on file Legal Sex Female 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 BIKE TECHNICIAN Gender Identity Not on file Sexual Orientation Not on file documented as of this encounter Plan of Treatment Not on file documented as of this encounter Visit Diagnoses Diagnosis Type II or unspecified type diabetes mellitus without mention of complication, not stated as uncontrolled- Primary Dietary surveil/family service counselor Dietary surveillance and counseling documented in this encounter Care Teams Clinical Manager Home Care Relationship Specialty Start Date End Date Sharan Gómez Jr., MD [address] [place] [phone] PCP - General 08/10/05 documented as of this encounter
--- OUTSIDE RECORDS SUMMARY | 2025-09-06 06:33 | XMS_ITS | Encounter Summary ---
Author Organization [facility] Address [address] [place] [address] Care Team Providers Care Database Technician Name Role Phone Rico Muñiz MD, Sharan Jaime Primary Care Provider Encounter Details Date Type Department Care Team (Late st Contact Info) Description 2020 Lab Requisition [facility] [address] [place] [phone] Tabatha Lynn, [facility] [address] [place] [address] Social History Tobacco Use Types Packs/Day Years Used Date Smoking Tobacco: Never Assessed Comments Unknown Sex and Gender Information Value Date Recorded Sex Assigned at Not on file Legal Sex Female 5:42 AM CLOTHES WRINGER Gender Identity Not on file Sexual Orientation Not on file documented as of this encounter Plan of Treatment Not on file documented as of this encounter Procedures Procedure Name Priority Date/Time Associated Diagnosis Comments PROTIME-INR Routine 2020 6:14 AM CLOTHES WRINGER documented in this encounter Results * (ABNORMAL) PROTIME-INR (2020 6:14 AM CLOTHES WRINGER) PROTIME 23.0(H) 11.9 - 15.5 Seconds 2020 7:28 PM CLOTHES WRINGER [facility] INR 2.0(H) 0.8 - 1.2 2020 7:[address] [facility] Blood Collection / Unknown 2020 6:14 AM CLOTHES WRINGER 2020 7:[address] [facility] - 2020 7:28 PM CLOTHES WRINGER Expected Values for INR: DVT/PE Goal INR 2.5; range 2.0 - 3.0 Valve Replacement Tissue Goal INR 2.5; range 2.0 - 3.0 Valve Replacement Mechanical Goal INR 3.0; range 2.5 - 3.5 POST-MS Goal INR 2.5; range 2.0 - 3.0 or Goal INR 3.0; range 2.5 - 3.5 Atrial Fibrillation Goal INR 2.5; range 2.0 - 3.0 Ischemic Stroke Goal INR 2.5; range 2.0 - 3.0 For additional information see Guidelines for Anticoagulation available from the pharmacy Aspen Mitchell, Pharm D. Tabatha Neff [employer]UM[employer] ADMIN HEMATOLOGY ORDERABLES Final Result Performing Organization Address City/State/[facility] Co de Phone Number [facility] [address] [place] [address] documented in this encounter Visit Diagnoses Not on filedocumented in this encounter Care Teams Database Technician Relationship Specialty Start Date End Date Sharan Gómez Jr., MD [address] [place] [address] PCP - General 08/10/05 documented as of this encounter
--- OUTSIDE RECORDS SUMMARY | 2025-09-06 06:33 | XMS_ITS | Encounter Summary ---
Author Organization [facility] Address [address] [place] [address] Care Team Providers Care Naval Surface Fire Support Planner Name Role Phone Rico Muñiz MD, Sharan Jaime Primary Care Provider Encounter Details Date Type Department Care Team (Latest Contact Info) Description 07/02/2001 Outpatient Historical [facility] Echocardiography - National [address] [place] [phone] X358 Social History Tobacco Use Types Packs/Day Years Used Date Smoking Tobacco: Never Assessed Comments Unknown Sex and Gender Information Value Date Recorded Sex Assigned at Not on file Legal Sex Female 5:42 AM FISH TECHNOLOGIST Gender Identity Not on file Sexual Orientation Not on file documented as of this encounter Plan of Treatment Not on file documented as of this encounter Visit Diagnoses Not on filedocumented in this encounter Care Teams Naval Surface Fire Support Planner Relationship Specialty Start Date End Date Sharan Gómez Jr., MD [address] [place] [address] PCP - General 08/10/05 documented as of this encounter
--- OUTSIDE RECORDS SUMMARY | 2025-09-06 06:33 | XMS_ITS | Encounter Summary ---
Author Organization [facility] Address [address] [place] [address] Care Team Providers Care Business Systems Developer Name Role Phone Rico Muñiz MD, Sharan Jaime Primary Care Provider Encounter Details Date Type Department Care Team (Latest Contact Info) Description 06/26/2003 Outpatient Historical [facility] Imaging Services-Faisal Lopez Michelle [address] [place] [address] Serge Arrington MD [address] [place] [address] HYPERTENSION NOS (Primary Dx); Routine medical exam Social History Tobacco Use Types Packs/Day Years Used Date Smoking Tobacco: Never Assessed Comments Unknown Sex and Gender Information Value Date Recorded Sex Assigned at Not on file Legal Sex Female 5:42 AM RISK ADVISOR Gender Identity Not on file Sexual Orientation Not on file documented as of this encounter Plan of Treatment Not on file documented as of this encounter Visit Diagnoses Diagnosis Unspecified essential hypertension- Primary Routine medical exam Routine general medical examination at a health care facility documented in this encounter Care Teams Business Systems Developer Relationship Specialty Start Date End Date Sharan Gómez Jr., MD [address] [place] [phone] PCP - General 08/10/05 documented as of this encounter
--- OUTSIDE RECORDS SUMMARY | 2025-09-06 06:33 | XMS_ITS | Encounter Summary ---
Author Organization [facility] Address [address] [place] [address] Care Team Providers Care Accreditation Manager Name Role Phone Rico Muñiz MD, Sharan Jaime Primary Care Provider Encounter Details Date Type Department Care Team (Latest Contact Info) Description 06/29/2004 Outpatient Historical [facility] Int Luis AFaisal [address] [place] [place] [address] Serge Arrington MD [address] [place] [address] Mitral valve disorder (Primary Dx); HYPERTENSION NOS; HYPERLIPIDEMIA NEC/NOS; OSTEOPOROSIS NOS Social History Tobacco Use Types Packs/Day Years Used Date Smoking Tobacco: Never Assessed Comments Unknown Sex and Gender Information Value Date Recorded Sex Assigned at Not on file Legal Sex Female 5:42 AM CHILD CARE SPECIALIST Gender Identity Not on file Sexual Orientation Not on file documented as of this encounter Plan of Treatment Not on file documented as of this encounter Visit Diagnoses Diagnosis Mitral valve disorder- Primary Mitral valve disorders Unspecified essential hypertension Other and unspecified hyperlipidemia Osteoporosis, unspecified documented in this encounter Care Teams Accreditation Manager Relationship Specialty Start Date End Date Sharan Gómez Jr., MD [address] [place] [phone] PCP - General 08/10/05 documented as of this encounter
--- OUTSIDE RECORDS SUMMARY | 2025-09-06 06:33 | XMS_ITS | Encounter Summary ---
Author Organization [facility] Address [address] [place] [address] Care Team Providers Care Slitter Creaser Slotter Helper Name Role Phone Rico Muñiz MD, Sharan Jaime Primary Care Provider Encounter Details Date Type Department Care Team (Latest Contact Info) Description 07/18/1999 Outpatient Historical [facility] Sharan Gómez Jr., MD [address] [place] [address] Skin sensation disturb (Primary Dx); Headache(784.0); [facility]DC (current) use of anticoagulants Social History Tobacco Use Types Packs/Day Years Used Date Smoking Tobacco: Never Assessed Comments Unknown Sex and Gender Information Value Date Recorded Sex Assigned at Not on file Legal Sex Female 5:42 AM PACK TRAIN DRIVER Gender Identity Not on file Sexual Orientation Not on file documented as of this encounter Plan of Treatment Not on file documented as of this encounter Visit Diagnoses Diagnosis Skin sensation disturb- Primary Disturbance of skin sensation Headache(784.0) Headache terminal carman (current) use of anticoagulants Long-term (current) use of anticoagulants documented in this encounter Care Teams Slitter Creaser Slotter Helper Relationship Specialty Start Date End Date Sharan Gómez Jr., MD [address] [place] [address] PCP - General 08/10/05 documented as of this encounter
--- OUTSIDE RECORDS SUMMARY | 2025-09-06 06:33 | XMS_ITS | Encounter Summary ---
Author Organization [facility] Address [address] [place] [address] Care Team Providers Care Outside Residential Sales Professional Name Role Phone Rico Muñiz MD, Sharan Jaime Primary Care Provider Encounter Details Date Type Department Care Team (Latest Contact Info) Description 01/30/2001 Outpatient Historical [facility] Sharan Gómez Jr., MD [address] [place] [address] Endocarditis, valve unspecified, unspecified cause (Primary Dx); Acute sinusitis, unspecified; Bronchitis, not specified as acute or chronic Social History Tobacco Use Types Packs/Day Years Used Date Smoking Tobacco: Never Assessed Comments Unknown Sex and Gender Information Value Date Recorded Sex Assigned at Not on file Legal Sex Female 5:42 AM CAREERS COUNSELLOR Gender Identity Not on file Sexual Orientation Not on file documented as of this encounter Plan of Treatment Not on file documented as of this encounter Visit Diagnoses Diagnosis Endocarditis, valve unspecified, unspecified cause- Primary Acute sinusitis, unspecified Bronchitis, not specified as acute or chronic documented in this encounter Care Teams Outside Residential Sales Professional Relationship Specialty Start Date End Date Sharan Gómez Jr., MD [address] [place] [address] PCP - General 08/10/05 documented as of this encounter
--- OUTSIDE RECORDS SUMMARY | 2025-09-06 06:33 | XMS_ITS | Encounter Summary ---
Author Organization [facility] Address [address] [place] [address] Care Team Providers Care Administrative Hearing Officer Name Role Phone Rico Muñiz MD, Sharan Jaime Primary Care Provider Encounter Details Date Type Department Care Team (Latest Contact Info) Description 11/14/2001 Outpatient Historical [facility] Sharan Gómez Jr., MD [address] [place] [address] OSTEOARTHROS NOS-UNSPEC (Primary Dx); HEART VALVE REPLAC NEC Social History Tobacco Use Types Packs/Day Years Used Date Smoking Tobacco: Never Assessed Comments Unknown Sex and Gender Information Value Date Recorded Sex Assigned at Not on file Legal Sex Female 5:42 AM UNIVERSITY COUNSELOR Gender Identity Not on file Sexual Orientation Not on file documented as of this encounter Plan of Treatment Not on file documented as of this encounter Visit Diagnoses Diagnosis Osteoarthrosis, unspecified whether generalized or localized, unspecified site- Primary Heart valve replaced by other means documented in this encounter Care Teams Administrative Hearing Officer Relationship Specialty Start Date End Date Sharan Gómez Jr., MD [address] [place] [address] PCP - General 08/10/05 documented as of this encounter
--- OUTSIDE RECORDS SUMMARY | 2025-09-06 06:33 | XMS_ITS | Encounter Summary ---
Author Organization [facility] Address [address] [place] [address] Care Team Providers Care Crematorium Operator Name Role Phone Rico Muñiz MD, Sharan Jaime Primary Care Provider Encounter Details Date Type Department Care Team (Latest Contact Info) Description 01/14/1999 Outpatient Historical [facility] Sharan Gómez Jr., MD [address] [place] [address] Spasm of muscle (Primary Dx) Social History Tobacco Use Types Packs/Day Years Used Date Smoking Tobacco: Never Assessed Comments Unknown Sex and Gender Information Value Date Recorded Sex Assigned at Not on file Legal Sex Female 5:42 AM CORE PILER Gender Identity Not on file Sexual Orientation Not on file documented as of this encounter Plan of Treatment Not on file documented as of this encounter Visit Diagnoses Diagnosis Spasm of muscle- Primary documented in this encounter Care Teams Crematorium Operator Relationship Specialty Start Date End Date Sharan Gómez Jr., MD [address] [place] [address] PCP - General 08/10/05 documented as of this encounter
--- OUTSIDE RECORDS SUMMARY | 2025-09-06 06:33 | XMS_ITS | Encounter Summary ---
Author Organization [facility] Address [address] [place] [address] Care Team Providers Care Client Resource Specialist Name Role Phone Rico Muñiz MD, Sharan Jaime Primary Care Provider Encounter Details Date Type Department Care Team (Latest Contact Info) Description 04/07/2002 Outpatient Historical [facility] Sharan Gómez Jr., MD [address] [place] [address] ENDOCARDITIS NOS (Primary Dx); DIABETES UNCOMPL ADULT-TYPE II (CMS/HCC); HYPERTENSION NOS; AFTERCARE HALF-WAY ANTICOAG USE Social History Tobacco [...] anticoagulants documented in this encounter Care Teams Client Resource Specialist Relationship Specialty Start Date End Date Sharan Gómez Jr., MD [address] [place] [address] PCP - General 08/10/05 documented as of this encounter
--- OUTSIDE RECORDS SUMMARY | 2025-09-06 06:33 | XMS_ITS | Encounter Summary ---
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 Social History Tobacco Use Types Packs/Day Years Used Date Smoking Tobacco: Never Assessed Comments Unknown Sex and Gender Information Value Date Recorded Sex Assigned at Not on file Legal Sex Female 5:42 AM COUNSELING DIRECTOR Gender Identity Not on file Sexual Orientation Not on file documented as of this encounter Plan of Treatment Not on file documented as of this encounter Visit Diagnoses Diagnosis Headache(784.0)- Primary Headache Unspecified essential hypertension halfway (current) use of anticoagulants Long-term (current) use of anticoagulants documented in this encounter Care Teams Bailiff Relationship Specialty Start Date End Date Sharan Gómez Jr., MD [address] [place] [address] PCP - General 08/10/05 documented as of this encounter
--- OUTSIDE RECORDS SUMMARY | 2025-09-06 06:33 | XMS_ITS | Encounter Summary ---
Author Organization [facility] Address [address] [facility] [facility] Attn: Epic Prelude ADT [place] [address] Care Team Providers Care Senior Datastage Developer Name Role Phone Rico Muñiz MD, [...] on file Legal Sex Female 5:42 AM REGULATORY CONSULTANT Gender Identity Not on file Sexual Orientation Not on file documented as of this encounter Plan of Treatment Not on file documented as of this encounter Visit Diagnoses Not on filedocumented in this encounter Care Teams Senior Datastage Developer Relationship Specialty Start Date End Date Sharan Gómez Jr., MD [address] [place] [address] PCP - General 08/10/05 documented as of this encounter
--- OUTSIDE RECORDS SUMMARY | 2025-09-06 06:33 | XMS_ITS | Encounter Summary ---
Author Organization [facility] Address [address] [facility] Attn: [place] [address] Care Team Providers Care Carton Making Machine Operator Name Role Phone Rico Muñiz MD, Sharan Jaime Primary Care Provider Encounter Details Date Type Department Care Team (Late st Contact Info) Description 02/15/2001 Outpatient Historical Sharan Gómez Jr., MD [address] [place] [address] Social History Tobacco Use Types Packs/Day Years Used Date Smoking Tobacco: Never Assessed Comments Unknown Sex and Gender Information Value Date Recorded Sex Assigned at Not on file Legal Sex Female 5:42 AM WET ROOM WORKER Gender Identity Not on file Sexual Orientation Not on file documented as of this encounter Plan of Treatment Not on file documented as of this encounter Visit Diagnoses Not on filedocumented in this encounter Care Teams Carton Making Machine Operator Relationship Specialty Start Date End Date Sharan Gómez Jr., MD [address] [place] [address] PCP - General 08/10/05 documented as of this encounter
--- OUTSIDE RECORDS SUMMARY | 2025-09-06 06:33 | XMS_ITS | Encounter Summary ---
Author Organization [facility] Address [address] [place] [address] Care Team Providers Care Patternmaker Bench Name Role Phone Rico Muñiz MD, Sharan Jaime Primary Care Provider Encounter Details Date Type Department Care Team (Latest Contact Info) Description 07/04/2005 Outpatient Historical [facility]-Faisal Lopez Michelle [address] [place] [address] Serge Arrington MD [address] [place] [address] HYPERTENSION NOS (Primary Dx) Social History Tobacco Use Types Packs/Day Years Used Date Smoking Tobacco: Never Assessed Comments Unknown Sex and Gender Information Value Date Recorded Sex Assigned at Not on file Legal Sex Female 5:42 AM STORE CLERK CASHIER Gender Identity Not on file Sexual Orientation Not on file documented as of this encounter Plan of Treatment Not on file documented as of this encounter Visit Diagnoses Diagnosis Unspecified essential hypertension- Primary documented in this encounter Care Teams Patternmaker Bench Relationship Specialty Start Date End Date Sharan Gómez Jr., MD [address] [facility] [place] [address] PCP - General 08/10/05 documented as of this encounter
--- OUTSIDE RECORDS SUMMARY | 2025-09-06 06:33 | XMS_ITS | Encounter Summary ---
Author Organization [facility] Address [address] [place] [address] Care Team Providers Care Digital Strategist Name Role Phone Rioc Muñiz MD, Sharan Jaime Primary Care Provider Encounter Details Date Type Department Care Team (Latest Contact Info) Description 03/03/2002 Outpatient Historical [facility] Sharan Gómez Jr., MD [address] [place] [address] HYPERTENSION NOS (Primary Dx); ENDOCARDITIS NOS; AFTERCARE ALF ANTICOAG USE; FAMILY HX-DIABETES MELLITUS Social History Tobacco Use Types Packs/Day Years Used Date Smoking Tobacco: Never Assessed Comments Unknown Sex and Gender Information Value Date Recorded Sex Assigned at Not on file Legal Sex Female 5:42 AM CLINICAL SPECIALIST Gender Identity Not on file Sexual Orientation Not on file documented as of this encounter Plan of Treatment Not on file documented as of this encounter Visit Diagnoses Diagnosis Unspecified essential hypertension- Primary Endocarditis, valve unspecified, unspecified cause [facility] (current) use of anticoagulants Long-term (current) use of anticoagulants Family history of diabetes mellitus documented in this encounter Care Teams Digital Strategist Relationship Specialty Start Date End Date Sharan Gómez Jr., MD [address] [place] [address] PCP - General 08/10/05 documented as of this encounter
--- OUTSIDE RECORDS SUMMARY | 2025-09-06 06:33 | XMS_ITS | Encounter Summary ---
Author Organization [facility] Address [address] [place] [address] Care Team Providers Care Doctor Of Podiatric Medicine Name Role Phone Rico Muñiz MD, Sharan Jaime Primary Care Provider Encounter Details Date Type Department Care Team (Latest Contact Info) Description 10/27/1998 Outpatient Historical [facility] Sharan Gómez Jr., MD [address] [place] [address] Unspecified essential hypertension (Primary Dx); Chest pain, unspecified; Pneumonia, organism unspecified(486) Social History Tobacco Use Types Packs/Day Years Used Date Smoking Tobacco: Never Assessed Comments Unknown Sex and Gender Information Value Date Recorded Sex Assigned at Not on file Legal Sex Female 5:42 AM NETWORK LEAD Gender Identity Not on file Sexual Orientation Not on file documented as of this encounter Plan of Treatment Not on file documented as of this encounter Visit Diagnoses Diagnosis Unspecified essential hypertension- Primary Chest pain, unspecified Pneumonia, organism unspecified(486) Pneumonia, organism unspecified documented in this encounter Care Teams Doctor Of Podiatric Medicine Relationship Specialty Start Date End Date Sharan Gómez Jr., MD [address] [place] [address] PCP - General 08/10/05 documented as of this encounter
--- OUTSIDE RECORDS SUMMARY | 2025-09-06 06:33 | XMS_ITS | Encounter Summary ---
Author Organization [facility] Address [address] [place] [address] Care Team Providers Care Auctioneer Automobile Name Role Phone Rico Muñiz MD, Sharan Jaime Primary Care Provider Encounter Details Date Type Department Care Team (Latest Contact Info) Description 07/06/2006 Outpatient Historical [facility] [address] [place] [address] Jennifer Cash MD NO ADDRESS ON FILE Unspecified Essential Hypertension (Primary Dx); Other and Unspecified Hyperlipidemia; Hypercalcemia; Routine Medical Exam Social History Tobacco Use Types Packs/Day Years Used Date Smoking Tobacco: Never Assessed Comments Unknown Sex and Gender Information Value Date Recorded Sex Assigned at Not on file Legal Sex Female 5:42 AM DRY FINISHER Gender Identity Not on file Sexual Orientation Not on file documented as of this encounter Plan of Treatment Not on file documented as of this encounter Visit Diagnoses Diagnosis Unspecified essential hypertension- Primary Other and unspecified hyperlipidemia Hypercalcemia Routine medical exam Routine general medical examination at a health care facility documented in this encounter Care Teams Auctioneer Automobile Relationship Specialty Start Date End Date Sharan Gómez Jr., MD [address] [place] [address] PCP - General 08/10/05 documented as of this encounter
--- OUTSIDE RECORDS SUMMARY | 2025-09-06 06:33 | XMS_ITS | Encounter Summary ---
Author Organization [facility] Address [address] [place] [address] Care Team Providers Care Carbon Paper Machine Operator Name Role Phone Rico Muñiz MD, Sharan Jaime Primary Care Provider Encounter Details Date Type Department Care Team (Latest Contact Info) Description 08/31/2000 Outpatient Historical [facility] Sharan Gómez Jr., MD [address] [place] [address] Pure hypercholesterolem (Primary Dx); Dietary surveil/disability counselor Social History Tobacco Use Types Packs/Day Years Used Date Smoking Tobacco: Never Assessed Comments Unknown Sex and Gender Information Value Date Recorded Sex Assigned at Not on file Legal Sex Female 5:42 AM INSIDE SALES EXECUTIVE Gender Identity Not on file Sexual Orientation Not on file documented as of this encounter Plan of Treatment Not on file documented as of this encounter Visit Diagnoses Diagnosis Pure hypercholesterolem- Primary Pure hypercholesterolemia Dietary surveil/disability counselor Dietary surveillance and counseling documented in this encounter Care Teams Carbon Paper Machine Operator Relationship Specialty Start Date End Date Sharan Gómez Jr., MD [address] [place] [address] PCP - General 08/10/05 documented as of this encounter
--- OUTSIDE RECORDS SUMMARY | 2025-09-06 06:33 | XMS_ITS | Encounter Summary ---
Author Organization [facility] Address [address] [place] [address] Care Team Providers Care Drier Attendant Name Role Phone Rico Muñiz MD, Sharan Jaime Primary Care Provider Encounter Details Date Type Department Care Team (Latest Contact Info) Description 07/04/[address] [facility] Int [facility] AFaisal [facility] [place] [address] [place] [address] Serge Arrington MD [address] [place] [address] Mitral valve disorder (Primary Dx); HYPERTENSION NOS; ABN FIND-STOOL CONTENTS-OCC BLOOD; SCREENING MAL NEOP-CERVIX Social History Tobacco Use Types Packs/Day Years Used Date Smoking Tobacco: Never Assessed Comments Unknown Sex and Gender Information Value Date Recorded Sex Assigned at Not on file Legal Sex Female 5:42 AM REVENUE CYCLE CONSULTANT Gender Identity Not on file Sexual Orientation Not on file documented as of this encounter Plan of Treatment Not on file documented as of this encounter Visit Diagnoses Diagnosis Mitral valve disorder- Primary Mitral valve disorders Unspecified essential hypertension Nonspecific abnormal finding in stool contents Screening for malignant neoplasm of the cervix documented in this encounter Care Teams Drier Attendant Relationship Specialty Start Date End Date Sharan Gómez Jr., MD [address] [place] [address] PCP - General 08/10/05 documented as of this encounter
--- OUTSIDE RECORDS SUMMARY | 2025-09-06 06:33 | XMS_ITS | Encounter Summary ---
Author Organization [facility] Address [address] Attn: [place] [address] Care Team Providers Care Furnace Packer Name Role Phone Rico Muñiz MD, Sharan Jaime Primary Care Provider Encounter Details Date Type Department Care Team (Late st Contact Info) Description 07/03/2002 Outpatient Historical Екатерина Malone MD [address] [place] [address] Social History Tobacco Use Types Packs/Day Years Used Date Smoking Tobacco: Never Assessed Comments Unknown Sex and Gender Information Value Date Recorded Sex Assigned at Not on file Legal Sex Female 5:42 AM HOT BILLET SHEAR OPERATOR Gender Identity Not on file Sexual Orientation Not on file documented as of this encounter Plan of Treatment Not on file documented as of this encounter Visit Diagnoses Not on filedocumented in this encounter Care Teams Furnace Packer Relationship Specialty Start Date End Date Sharan Gómez Jr., MD [address] [place] [phone] PCP - General 08/10/05 documented as of this encounter
--- OUTSIDE RECORDS SUMMARY | 2025-09-06 06:33 | XMS_ITS | Encounter Summary ---
Author Organization [facility] Address [address] [place] [address] Care Team Providers Care Urgent Care Name Role Phone Rico Muñiz MD, Sharan Jaime Primary Care Provider Encounter Details Date Type Department Care Team (Latest Contact Info) Description 11/05/2003 Outpatient Historical [facility] [address] [place] [address] Екатерина Malone MD [address] [place] [address] HYPERLIPIDEMIA NEC/NOS (Primary Dx) Social History Tobacco Use Types Packs/Day Years Used Date Smoking Tobacco: Never Assessed Comments Unknown Sex and Gender Information Value Date Recorded Sex Assigned at Not on file Legal Sex Female 5:42 AM DIRECTOR STRATEGIC ACCOUNT MANAGEMENT Gender Identity Not on file Sexual Orientation Not on file documented as of this encounter Plan of Treatment Not on file documented as of this encounter Visit Diagnoses Diagnosis Other and unspecified hyperlipidemia- Primary documented in this encounter Care Teams Urgent Care Relationship Specialty Start Date End Date Sharan Gómez Jr., MD [address] [place] [address] PCP - General 08/10/05 documented as of this encounter
--- OUTSIDE RECORDS SUMMARY | 2025-09-06 06:33 | XMS_ITS | Encounter Summary ---
Author Organization [facility] Address [address] [place] [address] Care Team Providers Care Sourcing Assistant Name Role Phone Rico Muñiz MD, Sharan Jaime Primary Care Provider Encounter Details Date Type Department Care Team (Latest Contact Info) Description 08/06/2006 Outpatient Historical [facility] Int Luis AFaisal Lopez [place] [address] [place] [address] Serge Arrington MD [address] [place] [address] Routine Gynecological Examination (Primary Dx) Social History Tobacco Use Types Packs/Day Years Used Date Smoking Tobacco: Never Assessed Comments Unknown Sex and Gender Information Value Date Recorded Sex Assigned at Not on file Legal Sex Female 5:42 AM REGISTRATION REP Gender Identity Not on file Sexual Orientation Not on file documented as of this encounter Plan of Treatment Not on file documented as of this encounter Visit Diagnoses Diagnosis Routine gynecological examination- Primary documented in this encounter Care Teams Sourcing Assistant Relationship Specialty Start Date End Date Sharan Gómez Jr., MD [address] [place] [address] PCP - General 08/10/05 documented as of this encounter
--- OUTSIDE RECORDS SUMMARY | 2025-09-06 06:33 | XMS_ITS | Encounter Summary ---
Author Organization [facility] Address [address] [place] [address] Care Team Providers Care Supervisor Painting Department Name Role Phone Rico Muñiz MD, Sharan Jaime Primary Care Provider Encounter Details Date Type Department Care Team (Latest Contact Info) Description 06/26/2003 Outpatient Historical [facility] [place] [address] [place] [address] Serge Arrington MD [address] [place] [address] Mitral valve disorder (Primary Dx); HYPERTENSION NOS; HYPERLIPIDEMIA NEC/NOS; VACCINE FOR STREP PNEUMONIAE Social History Tobacco Use Types Packs/Day Years Used Date Smoking Tobacco: Never Assessed Comments Unknown Sex and Gender Information Value Date Recorded Sex Assigned at Not on file Legal Sex Female 5:42 AM CORE STACKER Gender Identity Not on file Sexual Orientation [...] (pneumococcus) documented in this encounter Care Teams Supervisor Painting Department Relationship Specialty Start Date End Date Sharan Gómez Jr., MD [address] [place] [address] PCP - General 08/10/05 documented as of this encounter
--- OUTSIDE RECORDS SUMMARY | 2025-09-06 06:33 | XMS_ITS | Encounter Summary ---
Author Organization [facility] Address [address] [place] [address] Care Team Providers Care Security Risk Analyst Name Role Phone Rico Muñiz MD, Sharan Jaime Primary Care Provider Encounter Details Date Type Department Care Team (Late st Contact Info) Description 10/25/2020 Lab Requisition [facility] Laboratory Services [address] [place] [address] Paulina Peterson MD [address] [place] [address] Social History Tobacco Use Types Packs/Day Years Used Date Smoking Tobacco: Never Assessed Comments Unknown Sex and Gender Information Value Date Recorded Sex Assigned at Not on file Legal Sex Female 5:42 AM ORDER ENTRY ADMINISTRATOR Gender Identity Not on file Sexual Orientation Not on file documented as of this encounter Plan of Treatment Not on file documented as of this encounter Procedures Procedure Name Priority Date/Time Associated Diagnosis Comments PROTIME-INR Routine 10/25/2020 5:18 AM ORDER ENTRY ADMINISTRATOR documented in this encounter Results * (ABNORMAL) PROTIME-INR (10/25/2020 5:18 AM ORDER ENTRY ADMINISTRATOR) PROTIME 34.3(H) 11.9 - 15.5 Seconds 10/25/2020 7:01 PM ORDER ENTRY ADMINISTRATOR [facility] INR 3.3(H) 0.8 - 1.2 10/25/2020 7:01 PM ORDER ENTRY ADMINISTRATOR [facility] Blood Collection / Unknown 10/25/2020 5:18 AM ORDER ENTRY ADMINISTRATOR 10/25/2020 6:44 PM ORDER ENTRY ADMINISTRATOR Narrative [facility] - 10/25/2020 7:01 PM ORDER ENTRY ADMINISTRATOR Expected Values for INR: DVT/PE Goal INR [...] HEMATOLOGY ORDERABLES Maame smart Result [facility] [address] [place] [address] documented in this encounter Visit Diagnoses Not on filedocumented in this encounter Care Teams Security Risk Analyst Relationship Specialty Start Date End Date Sharan Gómez Jr., MD [address] [place] [address] PCP - General 08/10/05 documented as of this encounter
--- OUTSIDE RECORDS SUMMARY | 2025-09-06 06:33 | XMS_ITS | Encounter Summary ---
Author Organization [facility] Address [address] [place] [address] Care Team Providers Care Hvac Project Manager Name Role Phone Rico Muñiz MD, Sharan Jaime Primary Care Provider Encounter Details Date Type Department Care Team (Latest Contact Info) Description 06/28/2001 Outpatient Historical [facility] Sharan Gómez Jr., MD [address] [place] [address] Esophageal reflux (Primary Dx); Heart valve replaced by other means Social History Tobacco Use Types Packs/Day Years Used Date Smoking Tobacco: Never Assessed Comments Unknown Sex and Gender Information Value Date Recorded Sex Assigned at Not on file Legal Sex Female 5:42 AM SPEEDER FRAME TENDER Gender Identity Not on file Sexual Orientation Not on file documented as of this encounter Plan of Treatment Not on file documented as of this encounter Visit Diagnoses Diagnosis Esophageal reflux- Primary Heart valve replaced by other means documented in this encounter Care Teams Hvac Project Manager Relationship Specialty Start Date End Date Sharan Gómez Jr., MD [address] [place] [address] PCP - General 08/10/05 documented as of this encounter
--- OUTSIDE RECORDS SUMMARY | 2025-09-06 06:33 | XMS_ITS | Encounter Summary ---
Author Organization [facility] Address [address] [facility] Attn: [place] [address] Care Team Providers Care Cotton Breeder Name Role Phone Rico Muñiz MD, Sharan Jaime Primary Care Provider Encounter Details Date Type Department Care Team (Late st Contact Info) Description 12/20/2001 Outpatient Historical Sharan Gómez Jr., MD [address] [place] [address] Social History Tobacco Use Types Packs/Day Years Used Date Smoking Tobacco: Never Assessed Comments Unknown Sex and Gender Information Value Date Recorded Sex Assigned at Not on file Legal Sex Female 5:42 AM DIE TRIMMER Gender Identity Not on file Sexual Orientation Not on file documented as of this encounter Plan of Treatment Not on file documented as of this encounter Visit Diagnoses Not on filedocumented in this encounter Care Teams Cotton Breeder Relationship Specialty Start Date End Date Sharan Gómez Jr., MD [address] [place] [address] PCP - General 08/10/05 documented as of this encounter
--- OUTSIDE RECORDS SUMMARY | 2025-09-06 06:33 | XMS_ITS | Encounter Summary ---
Author Organization [facility] Address [address] [place] [address] Care Team Providers Care Last Inserter Name Role Phone Rico Muñiz MD, Sharan Jaime Primary Care Provider Encounter Details Date Type Department Care Team (Latest Contact Info) Description 06/24/2001 Outpatient Historical [facility] Int Luis AFaisal [place] [address] [place] [address] Serge Arrington MD [address] [place] [address] Mitral valve disorder (Primary Dx); Unspecified essential hypertension; Other and unspecified hyperlipidemia; Dizziness and giddiness Social History Tobacco Use Types Packs/Day Years Used Date Smoking Tobacco: Never Assessed Comments Unknown Sex and Gender Information Value Date Recorded Sex Assigned at Not on file Legal Sex Female 5:42 AM LEGAL PROJECT MANAGER Gender Identity Not on file Sexual Orientation Not on file documented as of this encounter Plan of Treatment Not on file documented as of this encounter Visit Diagnoses Diagnosis Mitral valve disorder- Primary Mitral valve disorders Unspecified essential hypertension Other and unspecified hyperlipidemia Dizziness and giddiness documented in this encounter Care Teams Last Inserter Relationship Specialty Start Date End Date Sharan Gómez Jr., MD [address] [place] [address] PCP - General 08/10/05 documented as of this encounter
--- OUTSIDE RECORDS SUMMARY | 2025-09-06 06:33 | XMS_ITS | Encounter Summary ---
Author Organization [facility] Address [address] [place] [address] Care Team Providers Care Asphalt Screed Operator Name Role Phone Rico Muñiz MD, Sharan Jaime Primary Care Provider Encounter Details Date Type Department Care Team (Latest Contact Info) Description 05/16/2001 Outpatient Historical [facility] hSaran Gómez Jr., MD [address] [place] [address] Unspecified essential hypertension (Primary Dx); prison (current) use of anticoagulants Social History Tobacco Use Types Packs/Day Years Used Date Smoking Tobacco: Never Assessed Comments Unknown Sex and Gender Information Value Date Recorded Sex Assigned at Not on file Legal Sex Female 5:42 AM COOK HELPER VEGETABLE Gender Identity Not on file Sexual Orientation Not on file documented as of this encounter Plan of Treatment Not on file documented as of this encounter Visit Diagnoses Diagnosis Unspecified essential hypertension- Primary prison (current) use of anticoagulants Long-term (current) use of anticoagulants documented in this encounter Care Teams Asphalt Screed Operator Relationship Specialty Start Date End Date Sharan Gómez Jr., MD [address] [place] [address] PCP - General 08/10/05 documented as of this encounter
--- OUTSIDE RECORDS SUMMARY | 2025-09-06 06:33 | XMS_ITS | Encounter Summary ---
Author Organization [facility] Address [address] [place] [address] Care Team Providers Care Heel Nailing Machine Operator Name Role Phone Rico Muñiz MD, Sharan Jaime Primary Care Provider Encounter Details Date Type Department Care Team (Latest Contact Info) Description 08/03/2000 Outpatient Historical [facility] Sharan Gómez Jr., MD [address] [place] [address] Pure hypercholesterolem (Primary Dx); Other and unspecified hyperlipidemia; Dietary surveil/deputy chief counsel Social History Tobacco Use Types Packs/Day Years Used Date Smoking Tobacco: Never Assessed Comments Unknown Sex and Gender Information Value Date Recorded Sex Assigned at Not on file Legal Sex Female 5:42 AM NETWORK SUPPORT MANAGER Gender Identity Not on file Sexual Orientation Not on file documented as of this encounter Plan of Treatment Not on file documented as of this encounter Visit Diagnoses Diagnosis Pure hypercholesterolem- Primary Pure hypercholesterolemia Other and unspecified hyperlipidemia Dietary surveil/deputy chief counsel Dietary surveillance and counseling documented in this encounter Care Teams Heel Nailing Machine Operator Relationship Specialty Start Date End Date Sharan Gómez Jr., MD [address] [place] [address] PCP - General 08/10/05 documented as of this encounter
--- OUTSIDE RECORDS SUMMARY | 2025-09-06 06:33 | XMS_ITS | Encounter Summary ---
Author Organization [facility] Address [address] [facility] Attn: [place] [address] Care Team Providers Care Web Content Executive Name Role Phone Rico Muñiz MD, Sharan Jaime Primary Care Provider Encounter Details Date Type Department Care Team (Late st Contact Info) Description 11/09/2000 Outpatient Historical Sharan Gómez Jr., MD [address] [place] [address] Social History Tobacco Use Types Packs/Day Years Used Date Smoking Tobacco: Never Assessed Comments Unknown Sex and Gender Information Value Date Recorded Sex Assigned at Not on file Legal Sex Female 5:42 AM TECHNOLOGY APPLICATIONS TEACHER Gender Identity Not on file Sexual Orientation Not on file documented as of this encounter Plan of Treatment Not on file documented as of this encounter Visit Diagnoses Not on filedocumented in this encounter Care Teams Web Content Executive Relationship Specialty Start Date End Date Sharan Gómez Jr., MD [address] [place] [address] PCP - General 08/10/05 documented as of this encounter
--- OUTSIDE RECORDS SUMMARY | 2025-09-06 06:33 | XMS_ITS | Encounter Summary ---
Author Organization [facility] Address [address] [place] [address] Care Team Providers Care Payroll Services Analyst Name Role Phone Rico Muñiz MD, Sharan Jaime Primary Care Provider Encounter Details Date Type Department Care Team (Latest Contact Info) Description 10/15/1998 Outpatient Historical [facility] Sharan Gómez Jr., MD [address] [place] [address] Unspecified essential hypertension (Primary Dx); Hypopotassemia; USP (current) use of anticoagulants Social History Tobacco Use Types Packs/Day Years Used Date Smoking Tobacco: Never Assessed Comments Unknown Sex and Gender Information Value Date Recorded Sex Assigned at Not on file Legal Sex Female 5:42 AM SAND MOLDER Gender Identity Not on file Sexual Orientation Not on file documented as of this encounter Plan of Treatment Not on file documented as of this encounter Visit Diagnoses Diagnosis Unspecified essential hypertension- Primary Hypopotassemia terminal gauger (current) use of anticoagulants Long-term (current) use of anticoagulants documented in this encounter Care Teams Payroll Services Analyst Relationship Specialty Start Date End Date Sharan Gómez Jr., MD [address] [place] [address] PCP - General 08/10/05 documented as of this encounter
--- OUTSIDE RECORDS SUMMARY | 2025-09-06 06:33 | XMS_ITS | Encounter Summary ---
Author Organization [facility] Address [address] [place] [address] Care Team Providers Care Carpet Loom Fixer Name Role Phone Rico Muñiz MD, Sharan Jaime Primary Care Provider Encounter Details Date Type Department Care Team (Late st Contact Info) Description 07/02/2001 Outpatient Historical [facility] Serge Arrington MD [address] [facility] [address] [place] [address] Encounter for long-term (current) use of other medications (Primary Dx); Unspecified essential hypertension Social History Tobacco Use Types Packs/Day Years Used Date Smoking Tobacco: Never Assessed Comments Unknown Sex and Gender Information Value Date Recorded Sex Assigned at Not on file Legal Sex Female 5:42 AM SPORTS MANAGER Gender Identity Not on file Sexual Orientation Not on file documented as of this encounter Plan of Treatment Not on file documented as of this encounter Visit Diagnoses Diagnosis Encounter for long-term (current) use of other medications- Primary Unspecified essential hypertension documented in this encounter Care Teams Carpet Loom Fixer Relationship Specialty Start Date End Date Sharan Gómez Jr., MD [address] [place] [address] PCP - General 08/10/05 documented as of this encounter
--- OUTSIDE RECORDS SUMMARY | 2025-09-06 06:33 | XMS_ITS | Encounter Summary ---
Author Organization [facility] Address [address] [place] [address] Care Team Providers Care Epic Beacon Analyst Name Role Phone Rico Muñiz MD, Sharan Jaime Primary Care Provider Encounter Details Date Type Department Care Team (Latest Contact Info) Description 02/25/1999 Outpatient Historical HIS [facility] Sharan Gómez Jr., MD [address] [place] [address] Dietary surveil/certified alcohol drug counselor (Primary Dx) Social History Tobacco Use Types Packs/Day Years Used Date Smoking Tobacco: Never Assessed Comments Unknown Sex and Gender Information Value Date Recorded Sex Assigned at Not on file Legal Sex Female 5:42 AM GROOVER RUNNER Gender Identity Not on file Sexual Orientation Not on file documented as of this encounter Plan of Treatment Not on file documented as of this encounter Visit Diagnoses Diagnosis Dietary surveil/certified alcohol drug counselor- Primary Dietary surveillance and counseling documented in this encounter Care Teams Epic Beacon Analyst Relationship Specialty Start Date End Date Sharan Gómez Jr., MD [address] [place] [address] PCP - General 08/10/05 documented as of this encounter
--- OUTSIDE RECORDS SUMMARY | 2025-09-06 06:33 | XMS_ITS | Encounter Summary ---
Author Organization [facility] Address [address] [place] [address] Care Team Providers Care Shellfish Farming Supervisor Name Role Phone Rico Muñiz MD, Sharan Jaime Primary Care Provider Encounter Details Date Type Department Care Team (Latest Contact Info) Description 01/04/2001 Outpatient Historical [facility] Sharan Gómez Jr., MD [address] [place] [address] Acute upper respiratory infections of unspecified site (Primary Dx); intermission coordinator (current) use of anticoagulants Social History Tobacco Use Types Packs/Day Years Used Date Smoking Tobacco: Never Assessed Comments Unknown Sex and Gender Information Value Date Recorded Sex Assigned at Not on file Legal Sex Female 5:42 AM HIGH SCHOOL COMBINATION TEACHER Gender Identity Not on file Sexual Orientation Not on file documented as of this encounter Plan of Treatment Not on file documented as of this encounter Visit Diagnoses Diagnosis Acute upper respiratory infections of unspecified site- Primary intermission coordinator (current) use of anticoagulants Long-term (current) use of anticoagulants documented in this encounter Care Teams Shellfish Farming Supervisor Relationship Specialty Start Date End Date Sharan Gómez Jr., MD [address] [place] [address] PCP - General 08/10/05 documented as of this encounter
--- OUTSIDE RECORDS SUMMARY | 2025-09-06 06:33 | XMS_ITS | Encounter Summary ---
Author Organization [facility] Address [address] [facility] Attn: [place] [address] Care Team Providers Care Emergency Department Physician Name Role Phone Rico Muñiz MD, Sharan Jaime Primary Care Provider Encounter Details Date Type Department Care Team (Late st Contact Info) Description 06/22/2000 Outpatient Historical Serge Arrington MD [address] [facility] [address] [place] [address] Social History Tobacco Use Types Packs/Day Years Used Date Smoking Tobacco: Never Assessed Comments Unknown Sex and Gender Information Value Date Recorded Sex Assigned at Not on file Legal Sex Female 5:42 AM APPEALS MANAGER Gender Identity Not on file Sexual Orientation Not on file documented as of this encounter Plan of Treatment Not on file documented as of this encounter Visit Diagnoses Not on filedocumented in this encounter Care Teams Emergency Department Physician Relationship Specialty Start Date End Date Sharan Gómez Jr., MD [address] [place] [address] PCP - General 08/10/05 documented as of this encounter
--- OUTSIDE RECORDS SUMMARY | 2025-09-06 06:33 | XMS_ITS | Encounter Summary ---
Author Organization [facility] Address [address] [place] [address] Care Team Providers Care Fast Food Crew Member Name Role Phone Rico Muñiz MD, Sharan Jaime Primary Care Provider Encounter Details Date Type Department Care Team (Late st Contact Info) Description 06/24/2001 Outpatient Historical [facility] Serge Arrington MD [address] [facility] [address] [place] [address] Unspecified essential hypertension (Primary Dx); Other and unspecified hyperlipidemia Social History Tobacco Use Types Packs/Day Years Used Date Smoking Tobacco: Never Assessed Comments Unknown Sex and Gender Information Value Date Recorded Sex Assigned at Not on file Legal Sex Female 5:42 AM INPATIENT NURSING AIDE Gender Identity Not on file Sexual Orientation Not on file documented as of this encounter Plan of Treatment Not on file documented as of this encounter Visit Diagnoses Diagnosis Unspecified essential hypertension- Primary Other and unspecified hyperlipidemia documented in this encounter Care Teams Fast Food Crew Member Relationship Specialty Start Date End Date Sharan Gmóez Jr., MD [address] [place] [address] PCP - General 08/10/05 documented as of this encounter
--- OUTSIDE RECORDS SUMMARY | 2025-09-06 06:33 | XMS_ITS | Encounter Summary ---
Author Organization [facility] Address [address] [place] [address] Care Team Providers Care Organizational Development Director Name Role Phone Rico Muñiz MD, Sharan Jaime Primary Care Provider Encounter Details Date Type Department Care Team (Latest Contact Info) Description 06/24/2001 Outpatient Historical [facility] Services-Faisal Lopez [address] [place] [address] Serge Arrington MD [address] [place] [address] Unspecified congenital anomaly of heart (Primary Dx) Social History Tobacco Use Types Packs/Day Years Used Date Smoking Tobacco: Never Assessed Comments Unknown Sex and Gender Information Value Date Recorded Sex Assigned at Not on file Legal Sex Female 5:42 AM SNOUT PULLER Gender Identity Not on file Sexual Orientation Not on file documented as of this encounter Plan of Treatment Not on file documented as of this encounter Visit Diagnoses Diagnosis Unspecified congenital anomaly of heart- Primary documented in this encounter Care Teams Organizational Development Director Relationship Specialty Start Date End Date Sharan Gómez Jr., MD [address] [place] [address] PCP - General 08/10/05 documented as of this encounter
--- OUTSIDE RECORDS SUMMARY | 2025-09-06 06:33 | XMS_ITS | Encounter Summary ---
Author Organization [facility] Address [address] [place] [address] Care Team Providers Care Cleaner Wall Name Role Phone Rico Muñiz MD, Sharan Jaime Primary Care Provider Encounter Details Date Type Department Care Team (Latest Contact Info) Description 10/31/2001 Outpatient Historical [facility] Sharan Gómez Jr., MD [address] [place] [address] ATRIAL FIBRILLATION (CMS/HCC) (Primary Dx); AFTERCARE ALF ANTICOAG USE; HEART VALVE REPLAC NEC Social History Tobacco Use Types Packs/Day Years Used Date Smoking Tobacco: Never Assessed Comments Unknown Sex and Gender Information Value Date Recorded Sex Assigned at Not on file Legal Sex Female 5:42 AM DECAL CUTTER Gender Identity Not on file Sexual Orientation Not on file documented as of this encounter Plan of Treatment Not on file documented as of this encounter Visit Diagnoses Diagnosis Atrial fibrillation (CMS/HCC)- Primary Atrial fibrillation terminal supervisor (current) use of anticoagulants Long-term (current) use of anticoagulants Heart valve replaced by other means documented in this encounter Care Teams Cleaner Wall Relationship Specialty Start Date End Date Sharan Gómez Jr., MD [address] [place] [address] PCP - General 08/10/05 documented as of this encounter
--- OUTSIDE RECORDS SUMMARY | 2025-09-06 06:33 | XMS_ITS | Encounter Summary ---
Author Organization [facility] Address [address] [place] [address] Care Team Providers Care Regulatory Leader Name Role Phone Rico Muñzi MD, Sharan Jaime Primary Care Provider Encounter Details Date Type Department Care Team (Latest Contact Info) Description 07/06/2006 Outpatient Historical [facility] [address] [place] [address] Jennifer Cash MD NO ADDRESS ON FILE Unspecified Essential Hypertension (Primary Dx); Other Chest Pain Social History Tobacco Use Types Packs/Day Years Used Date Smoking Tobacco: Never Assessed Comments Unknown Sex and Gender Information Value Date Recorded Sex Assigned at Not on file Legal Sex Female 5:42 AM JOURNEYMAN POWER PLANT OPERATOR Gender Identity Not on file Sexual Orientation Not on file documented as of this encounter Plan of Treatment Not on file documented as of this encounter Visit Diagnoses Diagnosis Unspecified essential hypertension- Primary Other chest pain documented in this encounter Care Teams Regulatory Leader Relationship Specialty Start Date End Date Sharan Gómez Jr., MD [address] [place] [address] PCP - General 08/10/05 documented as of this encounter
--- OUTSIDE RECORDS SUMMARY | 2025-09-06 06:33 | XMS_ITS | Encounter Summary ---
Author Organization [facility] Address [address] [place] [address] Care Team Providers Care Baggage Inspector Name Role Phone Rico Muñiz MD, Sharan Jaime Primary Care Provider Encounter Details Date Type Department Care Team (Latest Contact Info) Description 12/21/2000 Outpatient Historical [facility] Sharan Gómez Jr., MD [address] [place] [address] Pure hypercholesterolem (Primary Dx); Other and unspecified hyperlipidemia; Esophageal reflux; moth exterminator (current) use of anticoagulants Social History Tobacco Use Types Packs/Day Years Used Date Smoking Tobacco: Never Assessed Comments Unknown Sex and Gender Information Value Date Recorded Sex Assigned at Not on file Legal Sex Female 5:42 AM WEATHER ALGORITHM SCIENTIST Gender Identity Not on file Sexual Orientation Not on file documented as of this encounter Plan of Treatment Not on file documented as of this encounter Visit Diagnoses Diagnosis Pure hypercholesterolem- Primary Pure hypercholesterolemia Other and unspecified hyperlipidemia Esophageal reflux [facility] (current) use of anticoagulants Long-term (current) use of anticoagulants documented in this encounter Care Teams Baggage Inspector Relationship Specialty Start Date End Date Sharan Gómez Jr., MD [address] [place] [address] PCP - General 08/10/05 documented as of this encounter
--- OUTSIDE RECORDS SUMMARY | 2025-09-06 06:33 | XMS_ITS | Encounter Summary ---
Author Organization [facility] Address [address] [place] [address] Care Team Providers Care Batter Scaler Name Role Phone Rico Muñiz MD, Sharan Jaime Primary Care Provider Encounter Details Date Type Department Care Team (Latest Contact Info) Description 06/24/2002 Outpatient Historical [facility] [place] [address] [place] [address] Serge Arrington MD [address] [place] [address] Mitral valve disorder (Primary Dx); CORONARY ATHEROSCLER UNSPEC VESSEL; HYPERTENSION NOS; HYPERLIPIDEMIA NEC/NOS Social History Tobacco Use Types Packs/Day Years Used Date Smoking Tobacco: Never Assessed Comments Unknown Sex and Gender Information Value Date Recorded Sex Assigned at Not on file Legal Sex Female 5:42 AM HIGH SCHOOL LIBRARY MEDIA SPECIALIST Gender Identity Not on file Sexual Orientation Not on file documented as of this encounter Plan of Treatment Not on file documented as of this encounter Visit Diagnoses Diagnosis Mitral valve disorder- Primary Mitral valve disorders Coronary atherosclerosis of unspecified type of vessel, [place] or graft Unspecified essential hypertension Other and unspecified hyperlipidemia documented in this encounter Care Teams Batter Scaler Relationship Specialty Start Date End Date Sharan Gómez Jr., MD [address] [place] [address] PCP - General 08/10/05 documented as of this encounter
--- OUTSIDE RECORDS SUMMARY | 2025-09-06 06:33 | XMS_ITS | Encounter Summary ---
Author Organization [facility] Address [address] Attn: [place] [address] Care Team Providers Care Lift Team Technician Name Role Phone Rico Muñiz MD, Sharan Jaime Primary Care Provider Encounter Details Date Type Department Care Team (Late st Contact Info) Description 04/07/2002 Outpatient Historical Sharan Gómez Jr., MD [address] [place] [address] Social History Tobacco Use Types Packs/Day Years Used Date Smoking Tobacco: Never Assessed Comments Unknown Sex and Gender Information Value Date Recorded Sex Assigned at Not on file Legal Sex Female 5:42 AM BANJO REPAIRER Gender Identity Not on file Sexual Orientation Not on file documented as of this encounter Plan of Treatment Not on file documented as of this encounter Visit Diagnoses Not on filedocumented in this encounter Care Teams Lift Team Technician Relationship Specialty Start Date End Date Sharan Gómez Jr., MD [address] [place] [address] PCP - General 08/10/05 documented as of this encounter
--- OUTSIDE RECORDS SUMMARY | 2025-09-06 06:33 | XMS_ITS | Encounter Summary ---
Author Organization [facility] Address [address] [place] [address] Care Team Providers Care Print Support Specialist Name Role Phone Rico Muñiz MD, Sharan Jaime Primary Care Provider Encounter Details Date Type Department Care Team (Latest Contact Info) Description 09/12/2000 Outpatient Historical [facility] Sharan Gómez Jr., MD [address] [place] [address] Other and unspecified hyperlipidemia (Primary Dx); Other nonspecific finding on examination of urine; Personal history of other disorder of urinary system; mash filter press operator (current) use of anticoagulants Social History Tobacco Use Types Packs/Day Years Used Date Smoking Tobacco: Never Assessed Comments Unknown Sex and Gender Information Value Date Recorded Sex Assigned at Not on file Legal Sex Female 5:42 AM TOBACCO PACKER Gender Identity Not on file Sexual Orientation [...] anticoagulants documented in this encounter Care Teams Print Support Specialist Relationship Specialty Start Date End Date Sharan Gómez Jr., MD [address] [place] [address] PCP - General 08/10/05 documented as of this encounter
--- OUTSIDE RECORDS SUMMARY | 2025-09-06 06:33 | XMS_ITS | Encounter Summary ---
Author Organization [facility] Address [address] [place] [address] Care Team Providers Care Streetcar Motorman Name Role Phone Rico Muñiz MD, Sharan Jaime Primary Care Provider Encounter Details Date Type Department Care Team (Late st Contact Info) Description 07/30/2000 Outpatient Historical [facility] Social History Tobacco Use Types Packs/Day Years Used Date Smoking Tobacco: Never Assessed Comments Unknown Sex and Gender Information Value Date Recorded Sex Assigned at Not on file Legal Sex Female 5:42 AM HEALTHCARE ADMINISTRATION INTERNSHIP Gender Identity Not on file Sexual Orientation Not on file documented as of this encounter Plan of Treatment Not on file documented as of this encounter Visit Diagnoses Not on filedocumented in this encounter Care Teams Streetcar Motorman Relationship Specialty Start Date End Date Sharan Gómez Jr., MD [address] [place] [address] PCP - General 08/10/05 documented as of this encounter
--- OUTSIDE RECORDS SUMMARY | 2025-09-06 06:33 | XMS_ITS | Encounter Summary ---
Author Organization [facility] Address [address] [place] [address] Care Team Providers Care Protector Plate Attacher Name Role Phone Rico Muñiz MD, Sharan Jaime Primary Care Provider Encounter Details Date Type Department Care Team (Latest Contact Info) Description 01/03/2002 Outpatient Historical [facility] Sharan Gómez Jr., MD [address] [place] [address] FLU W RESP MANIFEST NEC (Primary Dx); [facility] ANTICOAG USE Social History Tobacco Use Types Packs/Day Years Used Date Smoking Tobacco: Never Assessed Comments Unknown Sex and Gender Information Value Date Recorded Sex Assigned at Not on file Legal Sex Female 5:42 AM SALES DEVELOPER Gender Identity Not on file Sexual Orientation Not on file documented as of this encounter Plan of Treatment Not on file documented as of this encounter Visit Diagnoses Diagnosis Influenza with other respiratory manifestations- Primary senior care (current) use of anticoagulants Long-term (current) use of anticoagulants documented in this encounter Care Teams Protector Plate Attacher Relationship Specialty Start Date End Date Sharan Gómez Jr., MD [address] [place] [address] PCP - General 08/10/05 documented as of this encounter
--- OUTSIDE RECORDS SUMMARY | 2025-09-06 06:33 | XMS_ITS | Encounter Summary ---
Author Organization [facility] Address [address] [place] [address] Care Team Providers Care Air Motor Repairer Name Role Phone Rico Muñiz MD, Sharan Jaime Primary Care Provider Encounter Details Date Type Department Care Team (Latest Contact Info) Description 02/03/2002 Outpatient Historical [facility] Sharan Gómez Jr., MD [address] [place] [address] HEART VALVE REPLAC NEC (Primary Dx); AFTERCARE SENIOR IT SPECIALIST ANTICOAG USE Social History Tobacco Use Types Packs/Day Years Used Date Smoking Tobacco: Never Assessed Comments Unknown Sex and Gender Information Value Date Recorded Sex Assigned at Not on file Legal Sex Female 5:42 AM ROVING WEIGHT GAUGER Gender Identity Not on file Sexual Orientation Not on file documented as of this encounter Plan of Treatment Not on file documented as of this encounter Visit Diagnoses Diagnosis Heart valve replaced by other means- Primary rodent exterminator (current) use of anticoagulants Long-term (current) use of anticoagulants documented in this encounter Care Teams Air Motor Repairer Relationship Specialty Start Date End Date Sharan Gómez Jr., MD [address] [place] [address] PCP - General 08/10/05 documented as of this encounter
--- OUTSIDE RECORDS SUMMARY | 2025-09-06 06:33 | XMS_ITS | Encounter Summary ---
Author Organization [facility] Address [address] [place] [address] Care Team Providers Care Natural Foods Clerk Name Role Phone Rico Muñiz MD, Sharan Jaime Primary Care Provider Encounter Details Date Type Department Care Team (Latest Contact Info) Description 09/05/2001 Outpatient Historical [facility] Sharan Gómez Jr., MD [address] [place] [address] OSTEOARTHROS NOS-UNSPEC (Primary Dx); OSTEOPOROSIS NOS Social History Tobacco Use Types Packs/Day Years Used Date Smoking Tobacco: Never Assessed Comments Unknown Sex and Gender Information Value Date Recorded Sex Assigned at Not on file Legal Sex Female 5:42 AM FOLDER TIER Gender Identity Not on file Sexual Orientation Not on file documented as of this encounter Plan of Treatment Not on file documented as of this encounter Visit Diagnoses Diagnosis Osteoarthrosis, unspecified whether generalized or localized, unspecified site- Primary Osteoporosis, unspecified documented in this encounter Care Teams Natural Foods Clerk Relationship Specialty Start Date End Date Sharan Gómez Jr., MD [address] [place] [address] PCP - General 08/10/05 documented as of this encounter
--- OUTSIDE RECORDS SUMMARY | 2025-09-06 06:33 | XMS_ITS | Encounter Summary ---
Author Organization [facility] Address [address] [place] [address] Care Team Providers Care Die Inspector Name Role Phone Rico Muñiz MD, Sharan Jaime Primary Care Provider Encounter Details Date Type Department Care Team (Latest Contact Info) Description 04/19/2001 Outpatient Historical [facility] Arun Nichols NO ADDRESS ON FILE Contusion of hand(s) (Primary Dx) Social History Tobacco Use Types Packs/Day Years Used Date Smoking Tobacco: Never Assessed Comments Unknown Sex and Gender Information Value Date Recorded Sex Assigned at Not on file Legal Sex Female 5:42 AM MONEY ROOM TELLER Gender Identity Not on file Sexual Orientation Not on file documented as of this encounter Plan of Treatment Not on file documented as of this encounter Visit Diagnoses Diagnosis Contusion of hand(s)- Primary documented in this encounter Care Teams Die Inspector Relationship Specialty Start Date End Date Sharan Gómez Jr., MD [address] [place] [address] PCP - General 08/10/05 documented as of this encounter
--- OUTSIDE RECORDS SUMMARY | 2025-09-06 06:33 | XMS_ITS | Encounter Summary ---
Author Organization [facility] Address [address] [place] [address] Care Team Providers Care Director Of Purchasing Name Role Phone Rico Muñiz MD, Sharan Jaime Primary Care Provider Encounter Details Date Type Department Care Team (Latest Contact Info) Description 03/09/2003 Outpatient Historical [facility] 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
--- OUTSIDE RECORDS SUMMARY | 2025-09-06 06:33 | XMS_ITS | Encounter Summary ---
Author Organization [facility] Address [address] [place] [address] Care Team Providers Care Drug Purchaser Name Role Phone Rico Muñiz MD, Sharan Jaime Primary Care Provider Encounter Details Date Type Department Care Team (Latest Contact Info) Description 11/09/2000 Outpatient Historical [facility] Sharan Gómez Jr., MD [address] [place] [address] Unspecified essential hypertension (Primary Dx); Pure hypercholesterolem; Endocarditis, valve unspecified, unspecified cause; residential (current) use of anticoagulants Social History Tobacco Use Types Packs/Day Years Used Date Smoking Tobacco: Never Assessed Comments Unknown Sex and Gender Information Value Date Recorded Sex Assigned at Not on file Legal Sex Female 5:42 AM SCHOOL PHOTOGRAPHS DETAILER Gender Identity Not on file Sexual Orientation Not on file documented as of this encounter Plan of Treatment Not on file documented as of this encounter Visit Diagnoses Diagnosis Unspecified essential hypertension- Primary Pure hypercholesterolem Pure hypercholesterolemia Endocarditis, valve unspecified, unspecified cause intermediate manager (current) use of anticoagulants Long-term (current) use of anticoagulants documented in this encounter Care Teams Drug Purchaser Relationship Specialty Start Date End Date Sharan Gómez Jr., MD [address] [place] [address] PCP - General 08/10/05 documented as of this encounter
--- OUTSIDE RECORDS SUMMARY | 2025-09-06 06:33 | XMS_ITS | Encounter Summary ---
Author Organization [facility] Address [address] [place] [address] Care Team Providers Care Acting Professor Name Role Phone Rico Muñiz MD, Sharan Jaime Primary Care Provider Encounter Details Date Type Department Care Team (Latest Contact Info) Description 11/28/2001 Outpatient Historical [facility] Sharan Gómez Jr., MD [address] [place] [address] URIN TRACT INFECTION NOS (Primary Dx); AFTERCARE ASSISTED ANTICOAG USE Social History Tobacco Use Types Packs/Day Years Used Date Smoking Tobacco: Never Assessed Comments Unknown Sex and Gender Information Value Date Recorded Sex Assigned at Not on file Legal Sex Female 5:42 AM PRECISION GRINDER EXTERNAL Gender Identity Not on file Sexual Orientation Not on file documented as of this encounter Plan of Treatment Not on file documented as of this encounter Visit Diagnoses Diagnosis Urinary tract infection, site not specified- Primary news assistant (current) use of anticoagulants Long-term (current) use of anticoagulants documented in this encounter Care Teams Acting Professor Relationship Specialty Start Date End Date Sharan Gómez Jr., MD [address] [facility] [address] PCP - General 08/10/05 documented as of this encounter
--- OUTSIDE RECORDS SUMMARY | 2025-09-06 06:33 | XMS_ITS | Encounter Summary ---
Author Organization [facility] Address [address] [place] [address] Care Team Providers Care Wool Washer Feeder Name Role Phone Rico Muñiz MD, Sharan Jaime Primary Care Provider Encounter Details Date Type Department Care Team (Latest Contact Info) Description 10/01/2000 Outpatient Historical [facility] Sharan Gómez Jr., MD [address] [place] [address] Endocarditis, valve unspecified, unspecified cause (Primary Dx); Other and unspecified hyperlipidemia; Osteoarthrosis, unspecified whether generalized or localized, unspecified site Social History Tobacco Use Types Packs/Day Years Used Date Smoking Tobacco: Never Assessed Comments Unknown Sex and Gender Information Value Date Recorded Sex Assigned at Not on file Legal Sex Female 5:42 AM SEAFOOD FISHERMAN Gender Identity Not on file Sexual Orientation Not on file documented as of this encounter Plan of Treatment Not on file documented as of this encounter Visit Diagnoses Diagnosis Endocarditis, valve unspecified, unspecified cause- Primary Other and unspecified hyperlipidemia Osteoarthrosis, unspecified whether generalized or localized, unspecified site documented in this encounter Care Teams Wool Washer Feeder Relationship Specialty Start Date End Date Sharan Gómez Jr., MD [address] [place] [address] PCP - General 08/10/05 documented as of this encounter
--- OUTSIDE RECORDS SUMMARY | 2025-09-06 06:33 | XMS_ITS | Encounter Summary ---
Author Organization [facility] Address [address] [place] [address] Care Team Providers Care Window Trimmer Apprentice Name Role Phone Rico Muñiz MD, Sharan Jaime Primary Care Provider Encounter Details Date Type Department Care Team (Latest Contact Info) Description 08/06/2006 Outpatient Historical [facility] Int Luis AFaisal [place] [place] [address] Serge Arrington MD [address] [place] [address] Mitral Valve Disorder (Primary Dx); Other and Unspecified Hyperlipidemia; Screening for Malignant Neoplasm of the Cervix Social History Tobacco Use Types Packs/Day Years Used Date Smoking Tobacco: Never Assessed Comments Unknown Sex and Gender Information Value Date Recorded Sex Assigned at Not on file Legal Sex Female 5:42 AM DIRECTOR EMPLOYMENT Gender Identity Not on file Sexual Orientation Not on file documented as of this encounter Plan of Treatment Not on file documented as of this encounter Visit Diagnoses Diagnosis Mitral valve disorder- Primary Mitral valve disorders Other and unspecified hyperlipidemia Screening for malignant neoplasm of the cervix documented in this encounter Care Teams Window Trimmer Apprentice Relationship Specialty Start Date End Date Sharan Gómez Jr., MD [address] [place] [phone] PCP - General 08/10/05 documented as of this encounter
--- OUTSIDE RECORDS SUMMARY | 2025-09-06 06:33 | XMS_ITS | Encounter Summary ---
Author Organization [facility] Address [address] [place] [address] Care Team Providers Care Director Of Outreach Name Role Phone Rico Muñiz MD, Sharan Jaime Primary Care Provider Encounter Details Date Type Department Care Team (Latest Contact Info) Description 04/12/2001 Outpatient Historical [facility] Sharan Gómez Jr., MD [address] [place] [address] Osteoarthrosis, unspecified whether generalized or localized, unspecified site (Primary Dx); Heart valve replaced by other means; USP (current) use of anticoagulants Social History Tobacco Use Types Packs/Day Years Used Date Smoking Tobacco: Never Assessed Comments Unknown Sex and Gender Information Value Date Recorded Sex Assigned at Not on file Legal Sex Female 5:42 AM IMPROVEMENT MANAGER Gender Identity Not on file Sexual Orientation Not on file documented as of this encounter Plan of Treatment Not on file documented as of this encounter Visit Diagnoses Diagnosis Osteoarthrosis, unspecified whether generalized or localized, unspecified site- Primary Heart valve replaced by other means cytogenetic technician (current) use of anticoagulants Long-term (current) use of anticoagulants documented in this encounter Care Teams Director Of Outreach Relationship Specialty Start Date End Date Sharan Gómez Jr., MD [address] [place] [address] PCP - General 08/10/05 documented as of this encounter
--- OUTSIDE RECORDS SUMMARY | 2025-09-06 06:33 | XMS_ITS | Encounter Summary ---
Author Organization [facility] Address [address] [place] [address] Care Team Providers Care Eligibility Services Representative Name Role Phone Rico Muñiz MD, Sharan Jaime Primary Care Provider Encounter Details Date Type Department Care Team (Latest Contact Info) Description 07/06/2003 Outpatient Historical [facility] [address] [place] [address] Екатерина Malone MD [address] [place] [address] AFTERCARE STAVE MACHINE TENDER USE MEDICATN (Primary Dx) Social History Tobacco Use Types Packs/Day Years Used Date Smoking Tobacco: Never Assessed Comments Unknown Sex and Gender Information Value Date Recorded Sex Assigned at Not on file Legal Sex Female 5:42 AM AIRPLANE PILOT SUPERVISOR Gender Identity Not on file Sexual Orientation Not on file documented as of this encounter Plan of Treatment Not on file documented as of this encounter Visit Diagnoses Diagnosis Encounter for long-term (current) use of other medications- Primary documented in this encounter Care Teams Eligibility Services Representative Relationship Specialty Start Date End Date Sharan Gómez Jr., MD [address] [place] [address] PCP - General 08/10/05 documented as of this encounter
--- OUTSIDE RECORDS SUMMARY | 2025-09-06 06:33 | XMS_ITS | Encounter Summary ---
Author Organization [facility] Address [address] [place] [address] Care Team Providers Care Kitchen Lead Name Role Phone Rico Muñiz MD, Sharan Jaime Primary Care Provider Encounter Details Date Type Department Care Team (Latest Contact Info) Description 06/28/2000 Outpatient Historical [facility] Sharan Gómez Jr., MD [address] [place] [address] Pure hypercholesterolem (Primary Dx); Hypopotassemia; Heart valve replaced by other means Social History Tobacco Use Types Packs/Day Years Used Date Smoking Tobacco: Never Assessed Comments Unknown Sex and Gender Information Value Date Recorded Sex Assigned at Not on file Legal Sex Female 5:42 AM DOG HANDLER Gender Identity Not on file Sexual Orientation Not on file documented as of this encounter Plan of Treatment Not on file documented as of this encounter Visit Diagnoses Diagnosis Pure hypercholesterolem- Primary Pure hypercholesterolemia Hypopotassemia Heart valve replaced by other means documented in this encounter Care Teams Kitchen Lead Relationship Specialty Start Date End Date Sharan Gómez Jr., MD [address] [place] [address] PCP - General 08/10/05 documented as of this encounter
--- OUTSIDE RECORDS SUMMARY | 2025-09-06 06:33 | XMS_ITS | Encounter Summary ---
Author Organization [facility] Address [address] [facility] Attn: [place] [address] Care Team Providers Care Radiopharmacist Name Role Phone Rico Muñiz MD, Sharan Jaime Primary Care Provider Encounter Details Date Type Department Care Team (Late st Contact Info) Description 08/16/2000 Outpatient Historical Sharan Gómez Jr., MD [address] [place] [address] Social History Tobacco Use Types Packs/Day Years Used Date Smoking Tobacco: Never Assessed Comments Unknown Sex and Gender Information Value Date Recorded Sex Assigned at Not on file Legal Sex Female 5:42 AM CLINICAL SCIENCE CONSULTANT Gender Identity Not on file Sexual Orientation Not on file documented as of this encounter Plan of Treatment Not on file documented as of this encounter Visit Diagnoses Not on filedocumented in this encounter Care Teams Radiopharmacist Relationship Specialty Start Date End Date Sharan Gómez Jr., MD [address] [place] [address] PCP - General 08/10/05 documented as of this encounter
--- OUTSIDE RECORDS SUMMARY | 2025-09-06 06:33 | XMS_ITS | Encounter Summary ---
Author Organization [facility] Address [address] [place] [address] Care Team Providers Care Grinder Set Up Operator Jig Name Role Phone Rico Muñiz MD, Sharan Jaime Primary Care Provider Encounter Details Date Type Department Care Team (Latest Contact Info) Description 12/31/2000 Outpatient Historical [facility] [address] [facility] [address] [place] [address] Larry Olvera MD Screening for malignant neoplasm of the rectum (Primary Dx) Social History Tobacco Use Types Packs/Day Years Used Date Smoking Tobacco: Never Assessed Comments Unknown Sex and Gender Information Value Date Recorded Sex Assigned at Not on file Legal Sex Female 5:42 AM GUNNER MATE Gender Identity Not on file Sexual Orientation Not on file documented as of this encounter Plan of Treatment Not on file documented as of this encounter Visit Diagnoses Diagnosis Screening for malignant neoplasm of the rectum- Primary documented in this encounter Care Teams Grinder Set Up Operator Jig Relationship Specialty Start Date End Date Sharan Gómez Jr., MD [address] [place] [address] PCP - General 08/10/05 documented as of this encounter
--- OUTSIDE RECORDS SUMMARY | 2025-09-06 06:33 | XMS_ITS | Encounter Summary ---
Author Organization [facility] Address [address] [place] [address] Care Team Providers Care Automobile Or Truck Rental Dispatcher Name Role Phone Rico Muñiz MD, Sharan Jaime Primary Care Provider Encounter Details Date Type Department Care Team (Latest Contact Info) Description 08/16/2000 Outpatient Historical [facility] Sharan Gómez Jr., MD [address] [place] [address] Pure hypercholesterolem (Primary Dx); Unspecified essential hypertension; Encounter for long-term (current) use of other medications Social History Tobacco Use Types Packs/Day Years Used Date Smoking Tobacco: Never Assessed Comments Unknown Sex and Gender Information Value Date Recorded Sex Assigned at Not on file Legal Sex Female 5:42 AM INSURANCE PLAN SPECIALIST Gender Identity Not on file Sexual Orientation Not on file documented as of this encounter Plan of Treatment Not on file documented as of this encounter Visit Diagnoses Diagnosis Pure hypercholesterolem- Primary Pure hypercholesterolemia Unspecified essential hypertension Encounter for long-term (current) use of other medications documented in this encounter Care Teams Automobile Or Truck Rental Dispatcher Relationship Specialty Start Date End Date Sharan Gómez Jr., MD [address] [place] [address] PCP - General 08/10/05 documented as of this encounter
--- OUTSIDE RECORDS SUMMARY | 2025-09-06 06:33 | XMS_ITS | Encounter Summary ---
Author Organization [facility] Address [address] [place] [address] Care Team Providers Care Service Order Taker Name Role Phone Rico Muñiz MD, Sharan Jaime Primary Care Provider Encounter Details Date Type Department Care Team (Latest Contact Info) Description 02/04/2007 Outpatient Historical [facility] Int Luis AFaisal Lopez [place] [place] [address] Serge Arrington MD [address] [place] [address] Unspecified Essential Hypertension (Primary Dx); Mitral Valve Disorder; Other and Unspecified Hyperlipidemia Social History Tobacco Use Types Packs/Day Years Used Date Smoking Tobacco: Never Assessed Comments Unknown Sex and Gender Information Value Date Recorded Sex Assigned at Not on file Legal Sex Female 5:42 AM ASSISTIVE TECHNOLOGY TRAINER Gender Identity Not on file Sexual Orientation Not on file documented as of this encounter Plan of Treatment Not on file documented as of this encounter Visit Diagnoses Diagnosis Unspecified essential hypertension- Primary Mitral valve disorder Mitral valve disorders Other and unspecified hyperlipidemia documented in this encounter Care Teams Service Order Taker Relationship Specialty Start Date End Date Sharan Gómez Jr., MD [address] [place] [address] PCP - General 08/10/05 documented as of this encounter
--- OUTSIDE RECORDS SUMMARY | 2025-09-06 06:33 | XMS_ITS | Encounter Summary ---
Author Organization [facility] Address [address] [place] [address] Care Team Providers Care Cement Tile Maker Name Role Phone Rico Muñiz MD, Sharan Jaime Primary Care Provider Encounter Details Date Type Department Care Team (Latest Contact Info) Description 11/05/2006 Outpatient Historical [facility] Int Luis AFaisal Lopez [place] [place] [address] Serge Arrington MD [address] [place] [address] Mitral Valve Disorder (Primary Dx); Unspecified Essential Hypertension; Other and Unspecified Hyperlipidemia Social History Tobacco Use Types Packs/Day Years Used Date Smoking Tobacco: Never Assessed Comments Unknown Sex and Gender Information Value Date Recorded Sex Assigned at Not on file Legal Sex Female 5:42 AM ELECTRICAL EQUIPMENT ASSEMBLER Gender Identity Not on file Sexual Orientation Not on file documented as of this encounter Plan of Treatment Not on file documented as of this encounter Visit Diagnoses Diagnosis Mitral valve disorder- Primary Mitral valve disorders Unspecified essential hypertension Other and unspecified hyperlipidemia documented in this encounter Care Teams Cement Tile Maker Relationship Specialty Start Date End Date Sharan Gómez Jr., MD [address] [place] [address] PCP - General 08/10/05 documented as of this encounter
--- OUTSIDE RECORDS SUMMARY | 2025-09-06 06:33 | XMS_ITS | Encounter Summary ---
Author Organization [facility] Address [address] [place] [address] Care Team Providers Care Day Habilitation Specialist Name Role Phone Rico Muñiz MD, Sharan Jaime Primary Care Provider Encounter Details Date Type Department Care Team (Latest Contact Info) Description 02/16/1999 Outpatient Historical [facility] Sharan Gómez Jr., MD [address] [place] [address] Unspecified essential hypertension (Primary Dx); intermediate (current) use of anticoagulants Social History Tobacco Use Types Packs/Day Years Used Date Smoking Tobacco: Never Assessed Comments Unknown Sex and Gender Information Value Date Recorded Sex Assigned at Not on file Legal Sex Female 5:42 AM SPECIALIZED LANGUAGE INSTRUCTOR Gender Identity Not on file Sexual Orientation Not on file documented as of this encounter Plan of Treatment Not on file documented as of this encounter Visit Diagnoses Diagnosis Unspecified essential hypertension- Primary intermediate (current) use of anticoagulants Long-term (current) use of anticoagulants documented in this encounter Care Teams Day Habilitation Specialist Relationship Specialty Start Date End Date Sharan Gómez Jr., MD [address] [place] [address] PCP - General 08/10/05 documented as of this encounter
--- OUTSIDE RECORDS SUMMARY | 2025-09-06 06:33 | XMS_ITS | Encounter Summary ---
Author Organization [facility] Address [address] [place] [address] Care Team Providers Care Cio Name Role Phone Rico Muñiz MD, Sharan Jaime Primary Care Provider Encounter Details Date Type Department Care Team (Latest Contact Info) Description 11/04/1998 Outpatient Historical [facility] Sharan Gómez Jr., MD [address] [place] [address] Acute upper respiratory infections of unspecified site (Primary Dx); Screening for other and unspecified respiratory condition; Other dyspnea and respiratory abnormality; long term care pharmacist (current) use of anticoagulants Social History Tobacco Use Types Packs/Day Years Used Date Smoking Tobacco: Never Assessed Comments Unknown Sex and Gender Information Value Date Recorded Sex Assigned at Not on file Legal Sex Female 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
--- OUTSIDE RECORDS SUMMARY | 2025-09-06 06:33 | XMS_ITS | Encounter Summary ---
Author Organization [facility] Address [address] [place] [address] Care Team Providers Care Program Coordinator Name Role Phone Rico Muñiz MD, Sharan Jaime Primary Care Provider Encounter Details Date Type Department Care Team (Latest Contact Info) Description 06/18/1998 Outpatient Historical [facility] Int Luis AFaisal Lopez [place] [place] [address] Serge Arrington MD [address] [place] [address] Mitral valve disorder (Primary Dx); Unspecified essential hypertension; Hematuria; Routine medical exam Social History Tobacco Use Types Packs/Day Years Used Date Smoking Tobacco: Never Assessed Comments Unknown Sex and Gender Information Value Date Recorded Sex Assigned at Not on file Legal Sex Female 5:42 AM 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
--- OUTSIDE RECORDS SUMMARY | 2025-09-06 06:33 | XMS_ITS | Encounter Summary ---
Author Organization [facility] Address [address] [place] [address] Care Team Providers Care Personnel Clerks Supervisor Name Role Phone Rico Muñiz MD, Sharan Jaime Primary Care Provider Encounter Details Date Type Department Care Team (Late st Contact Info) Description 10/14/2020 Lab Requisition [facility] Laboratory Services [address] [place] [address] Paulina Peterson MD [address] [place] [address] Social History Tobacco Use Types Packs/Day Years Used Date Smoking Tobacco: Never Assessed Comments Unknown Sex and Gender Information Value Date Recorded Sex Assigned at Not on file Legal Sex Female 5:42 AM WORLDWIDE CHIEF CREATIVE OFFICER Gender Identity Not on file Sexual Orientation Not on file documented as of this encounter Plan of Treatment Not on file documented as of this encounter Procedures Procedure Name Priority Date/Time Associated Diagnosis Comments PROTIME-INR Routine 10/14/2020 6:16 AM WORLDWIDE CHIEF CREATIVE OFFICER documented in this encounter Results * (ABNORMAL) PROTIME-INR (10/14/2020 6:16 AM WORLDWIDE CHIEF CREATIVE OFFICER) PROTIME 43.3(H) 11.9 - 15.5 Seconds 10/14/2020 4:10 PM WORLDWIDE CHIEF CREATIVE OFFICER [facility] INR 4.4(H) 0.8 - 1.2 10/14/2020 4:10 PM WORLDWIDE CHIEF CREATIVE OFFICER [facility] Blood Collection / Unknown 10/14/2020 6:16 AM WORLDWIDE CHIEF CREATIVE OFFICER 10/14/2020 3:45 PM WORLDWIDE CHIEF CREATIVE OFFICER Narrative [facility] - 10/14/2020 4:10 PM WORLDWIDE CHIEF CREATIVE OFFICER Expected Values for INR: DVT/PE Goal INR [...] smart Result [facility] [address] [place] [address] documented in this encounter Visit Diagnoses Not on filedocumented in this encounter Care Teams Personnel Clerks Supervisor Relationship Specialty Start Date End Date Sharan Gómez Jr., MD [address] [place] [address] PCP - General 08/10/05 documented as of this encounter
--- OUTSIDE RECORDS SUMMARY | 2025-09-06 06:33 | XMS_ITS | Encounter Summary ---
Author Organization [facility] Address [address] [facility] Attn: [place] [address] Care Team Providers Care Hot Dip Plater Name Role Phone Rico Muñiz MD, Sharan [...] file Legal Sex Female 5:42 AM MEAT HOSTESS Gender Identity Not on file Sexual Orientation Not on file documented as of this encounter Plan of Treatment Not on file documented as of this encounter Visit Diagnoses Not on filedocumented in this encounter Care Teams Hot Dip Plater Relationship Specialty Start Date End Date Sharan Gómez Jr., MD [address] [place] [address] PCP - General 08/10/05 documented as of this encounter
--- OUTSIDE RECORDS SUMMARY | 2025-09-06 06:33 | XMS_ITS | Encounter Summary ---
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
--- OUTSIDE RECORDS SUMMARY | 2025-09-06 06:33 | XMS_ITS | Encounter Summary ---
Author Organization [facility] Address [address] [place] [address] Care Team Providers Care Superintendent Water And Sewer Systems Name Role Phone Rico Muñiz MD, Sharan Jaime Primary Care Provider Encounter Details Date Type Department Care Team (Late st Contact Info) Description 07/26/[address] [facility] Cardiology- Rebeca [address] [place] [phone] [place] [address] 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
--- OUTSIDE RECORDS SUMMARY | 2025-09-06 06:33 | XMS_ITS | Encounter Summary ---
Author Organization [facility] Address [address] [place] [address] Care Team Providers Care Security Nurse Name Role Phone Rico Muñiz MD, Sharan Jaime Primary Care Provider Encounter Details Date Type Department Care Team (Late st Contact Info) Description 10/15/2020 Lab Requisition [facility] Laboratory Services [address] [place] [address] Paulina Peterson MD [address] [place] [address] Social History Tobacco Use Types Packs/Day Years Used Date Smoking Tobacco: Never Assessed Comments Unknown Sex and Gender Information Value Date Recorded Sex Assigned at Not on file Legal Sex Female 5:42 AM RN CVICU Gender Identity Not on file Sexual Orientation Not on file documented as of this encounter Plan of Treatment Not on file documented as of this encounter Procedures Procedure Name Priority Date/Time Associated Diagnosis Comments PROTIME-INR Routine 10/15/2020 4:40 AM RN CVICU documented in this encounter Results * (ABNORMAL) PROTIME-INR (10/15/2020 4:40 AM RN CVICU) PROTIME 46.6(H) 11.9 - 15.5 Seconds 10/15/2020 4:[address] [facility] INR 4.9(H) 0.8 - 1.2 10/15/2020 4:26 PM RN CVICU [facility] Blood Collection / Unknown 10/15/2020 4:40 AM RN CVICU 10/15/2020 4:01 PM RN CVICU Narrative [facility] - 10/15/2020 4:26 PM RN CVICU Expected Values for INR: DVT/PE Goal INR [...] HEMATOLOGY ORDERABLES Maame smart Result [facility] [address] [place] [address] documented in this encounter Visit Diagnoses Not on filedocumented in this encounter Care Teams Security Nurse Relationship Specialty Start Date End Date Sharan Gmóez Jr., MD [address] [place] [address] PCP - General 08/10/05 documented as of this encounter
--- OUTSIDE RECORDS SUMMARY | 2025-09-06 06:33 | XMS_ITS | Encounter Summary ---
Author Organization [facility] Address [address] [facility] Attn: [place] [address] Care Team Providers Care Property Specialist Name Role Phone Rico Muñiz MD, Sharan Jaime Primary Care Provider Encounter Details Date Type Department Care Team (Late st Contact Info) Description 07/23/2002 Outpatient Historical Екатерина Malone MD [address] [place] [address] Social History Tobacco Use Types Packs/Day Years Used Date Smoking Tobacco: Never Assessed Comments Unknown Sex and Gender Information Value Date Recorded Sex Assigned at Not on file Legal Sex Female 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
--- OUTSIDE RECORDS SUMMARY | 2025-09-06 06:33 | XMS_ITS | Encounter Summary ---
Author Organization [facility] Address [address] [place] [address] Care Team Providers Care Medical Assistant Float Name Role Phone Rico Muñiz MD, Sharan Jaime Primary Care Provider Encounter Details Date Type Department Care Team (Latest Contact Info) Description 08/05/2001 Outpatient Historical [facility] Sharan Gómez Jr., MD [address] [place] [address] Generalized anxiety disorder (Primary Dx); Hypopotassemia Social History Tobacco Use Types Packs/Day Years Used Date Smoking Tobacco: Never Assessed Comments Unknown Sex and Gender Information Value Date Recorded Sex Assigned at Not on file Legal Sex Female 5:42 AM JIG OPERATOR Gender Identity Not on file Sexual Orientation Not on file documented as of this encounter Plan of Treatment Not on file documented as of this encounter Visit Diagnoses Diagnosis Generalized anxiety disorder- Primary Hypopotassemia documented in this encounter Care Teams Medical Assistant Float Relationship Specialty Start Date End Date Sharan Gómez Jr., MD [address] [place] [address] PCP - General 08/10/05 documented as of this encounter
--- OUTSIDE RECORDS SUMMARY | 2025-09-06 06:33 | XMS_ITS | Encounter Summary ---
Author Organization [facility] Address [address] [place] [address] Care Team Providers Care Replanter Name Role Phone Rico Muñiz MD, Sharan Jaime Primary Care Provider Encounter Details Date Type Department Care Team (Latest Contact Info) Description 02/15/2001 Outpatient Historical [facility] Sharan Gómez Jr., MD [address] [place] [address] Unspecified essential hypertension (Primary Dx); Heart valve replaced by other means Social History Tobacco Use Types Packs/Day Years Used Date Smoking Tobacco: Never Assessed Comments Unknown Sex and Gender Information Value Date Recorded Sex Assigned at Not on file Legal Sex Female 5:42 AM SOAP MIXER Gender Identity Not on file Sexual Orientation Not on file documented as of this encounter Plan of Treatment Not on file documented as of this encounter Visit Diagnoses Diagnosis Unspecified essential hypertension- Primary Heart valve replaced by other means documented in this encounter Care Teams Replanter Relationship Specialty Start Date End Date Sharan Gómez Jr., MD [address] [place] [address] PCP - General 08/10/05 documented as of this encounter
--- OUTSIDE RECORDS SUMMARY | 2025-09-06 06:33 | XMS_ITS | Encounter Summary ---
Author Organization [facility] Address [address] [place] [address] Care Team Providers Care Rn Emergency Name Role Phone Rico Muñiz MD, Sharan Jaime Primary Care Provider Encounter Details Date Type Department Care Team (Latest Contact Info) Description 07/04/2005 Outpatient Historical [facility] [place] [place] [address] Serge Arrington MD [address] [place] [address] ROUTINE ELECTRIC METER REPAIRER EXAMINATION (Primary Dx) Social History Tobacco Use Types Packs/Day Years Used Date Smoking Tobacco: Never Assessed Comments Unknown Sex and Gender Information Value Date Recorded Sex Assigned at Not on file Legal Sex Female 5:42 AM MEAT COUNTER CLERK Gender Identity Not on file Sexual Orientation Not on file documented as of this encounter Plan of Treatment Not on file documented as of this encounter Visit Diagnoses Diagnosis Routine gynecological examination- Primary documented in this encounter Care Teams Rn Emergency Relationship Specialty Start Date End Date Sharan Gómez Jr., MD [address] [place] [address] PCP - General 08/10/05 documented as of this encounter
--- OUTSIDE RECORDS SUMMARY | 2025-09-06 06:33 | XMS_ITS | Encounter Summary ---
Author Organization [facility] Address [address] [place] [address] Care Team Providers Care Youth Minister Name Role Phone Rico Muñiz MD, Sharan Jaime Primary Care Provider Encounter Details Date Type Department Care Team (Latest Contact Info) Description 07/15/2002 Outpatient Historical [facility] Rafael Lopez Michelle [address] [place] [address] Patrick Olsen MD NO ADDRESS ON FILE POSTMENOPAUSAL BLEEDING (Primary Dx); DYSPAREUNIA; SCREENING MAL NEOP-CERVIX Social History Tobacco Use Types Packs/Day Years Used Date Smoking Tobacco: Never Assessed Comments Unknown Sex and Gender Information Value Date Recorded Sex Assigned at Not on file Legal Sex Female 5:42 AM 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
--- OUTSIDE RECORDS SUMMARY | 2025-09-06 06:33 | XMS_ITS | Encounter Summary ---
Author Organization [facility] Address [address] [place] [address] Care Team Providers Care Forms Builder Name Role Phone Rico Muñiz MD, Sharan Jaime Primary Care Provider Encounter Details Date Type Department Care Team (Latest Contact Info) Description 04/23/2002 Outpatient Historical [facility] Sharan Gómez Jr., MD [address] [place] [address] Pure hypercholesterolem (Primary Dx); HYPERCALCEMIA Social History Tobacco Use Types Packs/Day Years Used Date Smoking Tobacco: Never Assessed Comments Unknown Sex and Gender Information Value Date Recorded Sex Assigned at Not on file Legal Sex Female 5: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
--- OUTSIDE RECORDS SUMMARY | 2025-09-06 06:33 | XMS_ITS | Encounter Summary ---
Author Organization [facility] Address [address] Attn: [place] [address] Care Team Providers Care Team Assembly Line Machine Operator Name Role Phone Rico Muñiz MD, Sharan Jaime Primary Care Provider Encounter Details Date Type Department Care Team (Late st Contact Info) Description 04/23/2002 Outpatient Historical Sharan Gómez Jr., MD [address] [place] [address] Social History Tobacco Use Types Packs/Day Years Used Date Smoking Tobacco: Never Assessed Comments Unknown Sex and Gender Information Value Date Recorded Sex Assigned at Not on file Legal Sex Female 5:42 AM DIRECTOR OF ENROLLMENT Gender Identity Not on file Sexual Orientation Not on file documented as of this encounter Plan of Treatment Not on file documented as of this encounter Visit Diagnoses Not on filedocumented in this encounter Care Teams Team Assembly Line Machine Operator Relationship Specialty Start Date End Date Sharan Gómez Jr., MD [address] [place] [address] PCP - General 08/10/05 documented as of this encounter
--- OUTSIDE RECORDS SUMMARY | 2025-09-06 06:33 | XMS_ITS | Encounter Summary ---
Author Organization [facility] Address [address] [place] [address] Care Team Providers Care Cutting Tool Sharpener Name Role Phone Rico Muñiz MD, Sharan Jaime Primary Care Provider Encounter Details Date Type Department Care Team (Late st Contact Info) Description 06/21/2000 Outpatient Historical [facility] Serge Arrington MD [address] [facility] [address] [place] [address] Unspecified essential hypertension (Primary Dx); Mitral valve disorder; alf (current) use of anticoagulants Social History Tobacco Use Types Packs/Day Years Used Date Smoking Tobacco: Never Assessed Comments Unknown Sex and Gender Information Value Date Recorded Sex Assigned at Not on file Legal Sex Female 5:42 AM BODY STYLIST Gender Identity Not on file Sexual Orientation Not on file documented as of this encounter Plan of Treatment Not on file documented as of this encounter Visit Diagnoses Diagnosis Unspecified essential hypertension- Primary Mitral valve disorder Mitral valve disorders termite treater helper (current) use of anticoagulants Long-term (current) use of anticoagulants documented in this encounter Care Teams Cutting Tool Sharpener Relationship Specialty Start Date End Date Sharan Gómez Jr., MD [address] [place] [address] PCP - General 08/10/05 documented as of this encounter
--- OUTSIDE RECORDS SUMMARY | 2025-09-06 06:33 | XMS_ITS | Encounter Summary ---
Author Organization [facility] Address [address] [place] [address] Care Team Providers Care Puffer Tender Name Role Phone Rico Muñiz MD, Sharan Jaime Primary Care Provider Encounter Details Date Type Department Care Team (Latest Contact Info) Description 12/13/1998 Outpatient Historical [facility] Sharan Gómez Jr., MD [address] [place] [address] Acute upper respiratory infections of unspecified site (Primary Dx); terminal computer operator (current) use of anticoagulants Social History Tobacco Use Types Packs/Day Years Used Date Smoking Tobacco: Never Assessed Comments Unknown Sex and Gender Information Value Date Recorded Sex Assigned at Not on file Legal Sex Female 5:42 AM PANTS MAKER Gender Identity Not on file Sexual Orientation Not on file documented as of this encounter Plan of Treatment Not on file documented as of this encounter Visit Diagnoses Diagnosis Acute upper respiratory infections of unspecified site- Primary terminal computer operator (current) use of anticoagulants Long-term (current) use of anticoagulants documented in this encounter Care Teams Puffer Tender Relationship Specialty Start Date End Date Sharan Gómez Jr., MD [address] [place] [address] PCP - General 08/10/05 documented as of this encounter
--- OUTSIDE RECORDS SUMMARY | 2025-09-06 06:33 | XMS_ITS | Encounter Summary ---
Author Organization [facility] Address [address] [facility] Attn: [place] [address] Care Team Providers Care Verification Engineer Name Role Phone Rico Muñiz MD, Sharan Jaime Primary Care Provider Encounter Details Date Type Department Care Team (Late st Contact Info) Description 08/05/2001 Outpatient Historical Sharan Gómez Jr., MD [address] [place] [address] Social History Tobacco Use Types Packs/Day Years Used Date Smoking Tobacco: Never Assessed Comments Unknown Sex and Gender Information Value Date Recorded Sex Assigned at Not on file Legal Sex Female 5:42 AM STORY TELLER Gender Identity Not on file Sexual Orientation Not on file documented as of this encounter Plan of Treatment Not on file documented as of this encounter Visit Diagnoses Not on filedocumented in this encounter Care Teams Verification Engineer Relationship Specialty Start Date End Date Sharan Gómez Jr., MD [address] [place] [address] PCP - General 08/10/05 documented as of this encounter
--- OUTSIDE RECORDS SUMMARY | 2025-09-06 06:33 | XMS_ITS | Encounter Summary ---
Author Organization [facility] Address [address] [place] [address] Care Team Providers Care Bacteriology Technician Name Role Phone Rico Muñiz MD, Sharan Jaime Primary Care Provider Encounter Details Date Type Department Care Team (Latest Contact Info) Description 12/20/2001 Outpatient Historical [facility] Sharan Gómez Jr., MD [address] [place] [address] WHEEZING (Primary Dx); HEART VALVE REPLAC NEC; AFTERCARE CUSTODIAL ANTICOAG USE Social History Tobacco Use Types Packs/Day Years Used Date Smoking Tobacco: Never Assessed Comments Unknown Sex and Gender Information Value Date Recorded Sex Assigned at Not on file Legal Sex Female 5:42 AM COW TENDER Gender Identity Not on file Sexual Orientation Not on file documented as of this encounter Plan of Treatment Not on file documented as of this encounter Visit Diagnoses Diagnosis Wheezing- Primary Heart valve replaced by other means prison (current) use of anticoagulants Long-term (current) use of anticoagulants documented in this encounter Care Teams Bacteriology Technician Relationship Specialty Start Date End Date Sharan Gómez Jr., MD [address] [place] [address] PCP - General 08/10/05 documented as of this encounter
--- OUTSIDE RECORDS SUMMARY | 2025-09-06 06:34 | XMS_ITS | Encounter Summary ---
Author Organization [facility] Address [address] [place] [address] Care Team Providers Care Supervisor Finishing Room Name Role Phone Rico Muñiz MD, Sharan Jaime Primary Care Provider Encounter Details Date Type Department Care Team (Latest Contact Info) Description 10/10/1999 Outpatient Historical [facility] Sharan Gómez Jr., MD [address] [place] [address] Unspecified circulatory system disorder (Primary Dx); Unspecified essential hypertension; internal audit director (current) use of anticoagulants Social History Tobacco Use Types Packs/Day Years Used Date Smoking Tobacco: Never Assessed Comments Unknown Sex and Gender Information Value Date Recorded Sex Assigned at Not on file Legal Sex Female 5:42 AM EARLY LEARNING TEACHER Gender Identity Not on file Sexual Orientation Not on file documented as of this encounter Plan of Treatment Not on file documented as of this encounter Visit Diagnoses Diagnosis Unspecified circulatory system disorder- Primary Unspecified essential hypertension internal audit director (current) use of anticoagulants Long-term (current) use of anticoagulants documented in this encounter Care Teams Supervisor Finishing Room Relationship Specialty Start Date End Date Sharan Gómez Jr., MD [address] [place] [phone] PCP - General 08/10/05 documented as of this encounter
--- OUTSIDE RECORDS SUMMARY | 2025-09-06 06:34 | XMS_ITS | Encounter Summary ---
Author Organization [facility] Address [address] [place] [address] Care Team Providers Care Development Expert Name Role Phone Rico Muñiz MD, Sharan Jaime Primary Care Provider Encounter Details Date Type Department Care Team (Latest Contact Info) Description 06/20/1999 Outpatient Historical [facility] Echocardiography - National [address] [place] [address] X358 Serge Arrington MD [address] [address] Painful respiration (Primary Dx); Precordial pain; Other dyspnea and respiratory abnormality Social History Tobacco Use Types Packs/Day Years Used Date Smoking Tobacco: Never Assessed Comments Unknown Sex and Gender Information Value Date Recorded Sex Assigned at Not on file Legal Sex Female 5:42 AM ARCHITECTURAL ASSOCIATE Gender Identity Not on file Sexual Orientation Not on file documented as of this encounter Plan of Treatment Not on file documented as of this encounter Visit Diagnoses Diagnosis Painful respiration- Primary Precordial pain Other dyspnea and respiratory abnormality documented in this encounter Care Teams Development Expert Relationship Specialty Start Date End Date Sharan Gómez Jr., MD [address] [place] [address] PCP - General 08/10/05 documented as of this encounter
--- OUTSIDE RECORDS SUMMARY | 2025-09-06 06:34 | XMS_ITS | Encounter Summary ---
Author Organization [facility] Address [address] [facility] Attn: [place] [address] Care Team Providers Care Service Representative Name Role Phone Rico Muñiz MD, Sharan Jaime Primary Care Provider Encounter Details Date Type Department Care Team (Late st Contact Info) Description 12/26/1999 Outpatient Historical Sharan Gómez Jr., MD [address] [place] [address] Social History Tobacco Use Types Packs/Day Years Used Date Smoking Tobacco: Never Assessed Comments Unknown Sex and Gender Information Value Date Recorded Sex Assigned at Not on file Legal Sex Female 5:42 AM COLLECTION ADVISOR Gender Identity Not on file Sexual Orientation Not on file documented as of this encounter Plan of Treatment Not on file documented as of this encounter Visit Diagnoses Not on filedocumented in this encounter Care Teams Service Representative Relationship Specialty Start Date End Date Sharan Gómez Jr., MD [address] [place] [address] PCP - General 08/10/05 documented as of this encounter
--- OUTSIDE RECORDS SUMMARY | 2025-09-06 06:34 | XMS_ITS | Encounter Summary ---
Author Organization [facility] Address [address] [place] [address] Care Team Providers Care Ropewalk Rope Maker Name Role Phone Rico Muñiz MD, Sharan Jaime Primary Care Provider Encounter Details Date Type Department Care Team (Latest Contact Info) Description 08/10/2005 Outpatient Historical [facility] [address] [place] [address] Bill Negron MD [address] [place] [address] INT HEMORRHOID W/O COMPL (Primary Dx) Social History Tobacco Use Types Packs/Day Years Used Date Smoking Tobacco: Never Assessed Comments Unknown Sex and Gender Information Value Date Recorded Sex Assigned at Not on file Legal Sex Female 5:42 AM ENGINE SERVICE REPAIRER Gender Identity Not on file Sexual [...] Primary documented in this encounter Care Teams Ropewalk Rope Maker Relationship Specialty Start Date End Date Sharan Gómez Jr., MD [address] [place] [address] PCP - General 08/10/05 documented as of this encounter
--- OUTSIDE RECORDS SUMMARY | 2025-09-06 06:34 | XMS_ITS | Encounter Summary ---
Author Organization [facility] Address [address] [place] [address] Care Team Providers Care Insurance Law Specialist Name Role Phone Rico Muñiz MD, Sharan Jaime Primary Care Provider Encounter Details Date Type Department Care Team (Latest Contact Info) Description 01/25/2000 Outpatient Historical [facility] Sharan Gómez Jr., MD [address] [place] [address] Obesity, unspecified (Primary Dx); Heart valve replaced by other means; Unspecified essential hypertension; assisted (current) use of anticoagulants Social History Tobacco Use Types Packs/Day Years Used Date Smoking Tobacco: Never Assessed Comments Unknown Sex and Gender Information Value Date Recorded Sex Assigned at Not on file Legal Sex Female 5:42 AM TUMBLER TENDER Gender Identity Not on file Sexual Orientation Not on file documented as of this encounter Plan of Treatment Not on file documented as of this encounter Visit Diagnoses Diagnosis Obesity, unspecified- Primary Heart valve replaced by other means Unspecified essential hypertension assisted (current) use of anticoagulants Long-term (current) use of anticoagulants documented in this encounter Care Teams Insurance Law Specialist Relationship Specialty Start Date End Date Sharan Gómez Jr., MD [address] [place] [address] PCP - General 08/10/05 documented as of this encounter
--- OUTSIDE RECORDS SUMMARY | 2025-09-06 06:34 | XMS_ITS | Encounter Summary ---
Author Organization [facility] Address [address] [place] [address] Care Team Providers Care Dross Puller Name Role Phone Rico Muñiz MD, Sharan Jaime Primary Care Provider Encounter Details Date Type Department Care Team (Late st Contact Info) Description 10/16/2020 Lab Requisition [facility] [place] [address] [place] [phone] Mtnv, External Provider [address] [facility] [address] [place] [address] Social History Tobacco Use Types Packs/Day Years Used Date Smoking Tobacco: Never Assessed Comments Unknown Sex and Gender Information Value Date Recorded Sex Assigned at Not on file Legal Sex Female 5:42 AM HEAD ATHLETIC TRAINER Gender Identity Not on file Sexual Orientation Not on file documented as of this encounter Plan of Treatment Not on file documented as of this encounter Procedures Procedure Name Priority Date/Time Associated Diagnosis Comments PROTIME-INR Routine 10/16/2020 10:20 AM HEAD ATHLETIC TRAINER documented in this encounter Results * (ABNORMAL) PROTIME-INR (10/16/2020 10:20 AM HEAD ATHLETIC TRAINER) PROTIME 42.0(H) 12.0 - 14.4 Seconds 10/16/2020 12:05 PM HEAD ATHLETIC TRAINER [facility] INR 4.7(H) 0.8 - 1.2 10/16/2020 12:05 PM HEAD ATHLETIC TRAINER [facility] Blood 10/16/2020 10:2 0 AM HEAD ATHLETIC TRAINER 10/16/2020 11:47 AM HEAD ATHLETIC TRAINER us External Provider Mtnv HEMATOLOGY ORDERABLES Fin al Result [facility] CLIA # [id number] [address] [place] [id number] documented in this encounter Visit Diagnoses Not on filedocumented in this encounter Care Teams Dross Puller Relationship Specialty Start Date End Date Sharan Gómez Jr., MD [address] [place] [address] PCP - General 08/10/05 documented as of this encounter
--- OUTSIDE RECORDS SUMMARY | 2025-09-06 06:34 | XMS_ITS | Encounter Summary ---
Author Organization [facility] Address [address] [place] [address] Care Team Providers Care Saddle Lining Stitcher Name Role Phone Rico Muñiz MD, Sharan Jaime Primary Care Provider Encounter Details Date Type Department Care Team (Latest Contact Info) Description 08/10/2005 Outpatient Historical [facility] [place] [address] [facility] [address] [place] [address] Bill Negron MD [address] [place] [address] ABN FIND-STOOL CONTENTS-OCC BLOOD (Primary Dx); INT HEMORRHOID W/O COMPL; ANAL FISSURE Social History Tobacco Use Types Packs/Day Years Used Date Smoking Tobacco: Never Assessed Comments Unknown Sex and Gender Information Value Date Recorded Sex Assigned at Not on file Legal Sex Female 5:42 AM HOSPICE CLINICAL MARKETER Gender Identity Not on file Sexual Orientation Not on file documented as of this encounter Plan of Treatment Not on file documented as of this encounter Visit Diagnoses Diagnosis Nonspecific abnormal finding in stool contents- Primary Internal hemorrhoids without mention of complication Anal fissure documented in this encounter Care Teams Saddle Lining Stitcher Relationship Specialty Start Date End Date Sharan Gómez Jr., MD [address] [place] [address] PCP - General 08/10/05 documented as of this encounter
--- OUTSIDE RECORDS SUMMARY | 2025-09-06 06:34 | XMS_ITS | Encounter Summary ---
Author Organization [facility] Address [address] [place] [address] Care Team Providers Care Associate Professor Of Criminal Justice Name Role Phone Rico Muñiz MD, Sharan Jaime Primary Care Provider Encounter Details Date Type Department Care Team (Latest Contact Info) Description 03/18/1999 Outpatient Historical [facility] Sharan Gómez Jr., MD [address] [place] [address] Endocarditis, valve unspecified, unspecified cause (Primary Dx); care home (current) use of anticoagulants Social History Tobacco Use Types Packs/Day Years Used Date Smoking Tobacco: Never Assessed Comments Unknown Sex and Gender Information Value Date Recorded Sex Assigned at Not on file Legal Sex Female 5:42 AM PHARMACY ORDER ENTRY TECHNICIAN Gender Identity Not on file Sexual Orientation Not on file documented as of this encounter Plan of Treatment Not on file documented as of this encounter Visit Diagnoses Diagnosis Endocarditis, valve unspecified, unspecified cause- Primary care home (current) use of anticoagulants Long-term (current) use of anticoagulants documented in this encounter Care Teams Associate Professor Of Criminal Justice Relationship Specialty Start Date End Date Sharan Gómez Jr., MD [address] [place] [address] PCP - General 08/10/05 documented as of this encounter
--- OUTSIDE RECORDS SUMMARY | 2025-09-06 06:34 | XMS_ITS | Encounter Summary ---
Author Organization [facility] Address [address] [place] [address] Care Team Providers Care Ball Holder Name Role Phone Rico Muñiz MD, Sharan Jaime Primary Care Provider Encounter Details Date Type Department Care Team (Latest Contact Info) Description 12/26/1999 Outpatient Historical [facility] Sharan Gómez Jr., MD [address] [place] [address] ASCVD (Primary Dx); Esophageal reflux; Unspecified essential hypertension; detention (current) use of anticoagulants Social History Tobacco Use Types Packs/Day Years Used Date Smoking Tobacco: Never Assessed Comments Unknown Sex and Gender Information Value Date Recorded Sex Assigned at Not on file 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 BALANCE BRIDGE Gender Identity Not on file Sexual Orientation Not on file documented as of this encounter Plan of Treatment Not on file documented as of this encounter Visit Diagnoses Diagnosis ASCVD- Primary Unspecified cardiovascular disease Esophageal reflux Unspecified essential hypertension detention (current) use of anticoagulants Long-term (current) use of anticoagulants documented in this encounter Care Teams Ball Holder Relationship Specialty Start Date End Date Sharan Gómez Jr., MD [address] [place] [address] PCP - General 08/10/05 documented as of this encounter
--- OUTSIDE RECORDS SUMMARY | 2025-09-06 06:34 | XMS_ITS | Encounter Summary ---
Author Organization [facility] Address [address] [place] [address] Care Team Providers Care Apartment Rental Clerk Name Role Phone Rico Muñiz MD, Sharan Jaime Primary Care Provider Encounter Details Date Type Department Care Team (Latest Contact Info) Description 11/25/1999 Outpatient Historical [facility] Sharan Gómez Jr., MD [address] [place] [address] Epistaxis (Primary Dx); termite helper (current) use of anticoagulants Social History Tobacco Use Types Packs/Day Years Used Date Smoking Tobacco: Never Assessed Comments Unknown Sex and Gender Information Value Date Recorded Sex Assigned at Not on file Legal Sex Female 5:42 AM LIP AND GATE BUILDER Gender Identity Not on file Sexual Orientation Not on file documented as of this encounter Plan of Treatment Not on file documented as of this encounter Visit Diagnoses Diagnosis Epistaxis- Primary termite helper (current) use of anticoagulants Long-term (current) use of anticoagulants documented in this encounter Care Teams Apartment Rental Clerk Relationship Specialty Start Date End Date Sharan Gómez Jr., MD [address] [place] [address] PCP - General 08/10/05 documented as of this encounter
--- OUTSIDE RECORDS SUMMARY | 2025-09-06 06:34 | XMS_ITS | Clinical Summary ---
Author Organization [facility] Address [address] [place] [address] Phone Care Team Providers Care Aircraft Cylinder Mechanic Name Role Phone Rico Muñiz MD, [...] file Legal Sex Female 5:42 AM SAMPLE WRAPPER Gender Identity Not on file Sexual Orientation [...] AND BLUE SHIELD [place]ID [place] Care Teams Aircraft Cylinder Mechanic Relationship Specialty Start Date End Date Sharan Gómez Jr., MD [address] [place] [address] PCP - General 08/10/05
--- OUTSIDE RECORDS SUMMARY | 2025-09-06 06:34 | XMS_ITS | Encounter Summary ---
Author Organization [facility] Address [address] [place] [address] Care Team Providers Care Hog Counter Name Role Phone Rico Muñiz MD, Sharan Jaime Primary Care Provider Encounter Details Date Type Department Care Team (Latest Contact Info) Description 06/21/2000 Outpatient Historical [facility] Int [facility] [place] [address] [place] [address] Serge Arrington MD [address] [place] [address] Mitral valve disorder (Primary Dx); Unspecified essential hypertension; Unspecified gastritis and gastroduodenitis without mention of hemorrhage Social History Tobacco Use Types Packs/Day Years Used Date Smoking Tobacco: Never Assessed Comments Unknown Sex and Gender Information Value Date Recorded Sex Assigned at Not on file Legal Sex Female 5:42 AM OPERATIONS SUPPORT ANALYST Gender Identity Not on file Sexual Orientation Not on file documented as of this encounter Plan of Treatment Not on file documented as of this encounter Visit Diagnoses Diagnosis Mitral valve disorder- Primary Mitral valve disorders Unspecified essential hypertension Unspecified gastritis and gastroduodenitis without mention of hemorrhage documented in this encounter Care Teams Hog Counter Relationship Specialty Start Date End Date Sharan Gómez Jr., MD [address] [place] [address] PCP - General 08/10/05 documented as of this encounter
--- OUTSIDE RECORDS SUMMARY | 2025-09-06 06:34 | XMS_ITS | Encounter Summary ---
Author Organization [facility] Address [address] [place] [address] Care Team Providers Care Nutrition Representative Name Role Phone Rico Muñiz MD, Sharan Jaime Primary Care Provider Encounter Details Date Type Department Care Team (Latest Contact Info) Description 10/26/1999 Outpatient Historical [facility] Sharan Gómez Jr., MD [address] [place] [address] Endocarditis, valve unspecified, unspecified cause (Primary Dx); Osteoporosis, unspecified Social History Tobacco Use Types Packs/Day Years Used Date Smoking Tobacco: Never Assessed Comments Unknown Sex and Gender Information Value Date Recorded Sex Assigned at Not on file Legal Sex Female 5:42 AM ASSISTANT IN NURSING Gender Identity Not on file Sexual Orientation Not on file documented as of this encounter Plan of Treatment Not on file documented as of this encounter Visit Diagnoses Diagnosis Endocarditis, valve unspecified, unspecified cause- Primary Osteoporosis, unspecified documented in this encounter Care Teams Nutrition Representative Relationship Specialty Start Date End Date Sharan Gómez Jr., MD [address] [place] [address] PCP - General 08/10/05 documented as of this encounter
--- OUTSIDE RECORDS SUMMARY | 2025-09-06 06:34 | XMS_ITS | Encounter Summary ---
Author Organization [facility] Address [address] [place] [address] Care Team Providers Care Rivet Flunky Name Role Phone Rico Muñiz MD, Sharan Jaime Primary Care Provider Encounter Details Date Type Department Care Team (Latest Contact Info) Description 04/06/2000 Outpatient Historical [facility] Sharan Gómez Jr., MD [address] [place] [address] Symptomatic menopausal or female climacteric states (Primary Dx); Endocarditis, valve unspecified, unspecified cause; intermediate accountant (current) use of anticoagulants Social History Tobacco Use Types Packs/Day Years Used Date Smoking Tobacco: Never Assessed Comments Unknown Sex and Gender Information Value Date Recorded Sex Assigned at Not on file Legal Sex Female 5:42 AM SENIOR INFORMATION SECURITY ENGINEER Gender Identity Not on file Sexual Orientation Not on file documented as of this encounter Plan of Treatment Not on file documented as of this encounter Visit Diagnoses Diagnosis Symptomatic menopausal or female climacteric states- Primary Endocarditis, valve unspecified, unspecified cause intermediate accountant (current) use of anticoagulants Long-term (current) use of anticoagulants documented in this encounter Care Teams Rivet Flunky Relationship Specialty Start Date End Date Sharan Gómez Jr., MD [address] [place] [phone] PCP - General 08/10/05 documented as of this encounter
--- OUTSIDE RECORDS SUMMARY | 2025-09-06 06:34 | XMS_ITS | Encounter Summary ---
Author Organization [facility] Address [address] [place] [address] Care Team Providers Care Neuropsychologist Name Role Phone Rico Muñiz MD, Sharan Jaime Primary Care Provider Encounter Details Date Type Department Care Team (Latest Contact Info) Description 05/18/1999 Outpatient Historical [facility] Sharan Gómez Jr., MD [address] [place] [address] Osteoarthrosis, unspecified whether generalized or localized, unspecified site (Primary Dx); correction (current) use of anticoagulants; Heart valve replaced by other means Social History Tobacco Use Types Packs/Day Years Used Date Smoking Tobacco: Never Assessed Comments Unknown Sex and Gender Information Value Date Recorded Sex Assigned at Not on file Legal Sex Female 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 CANDY CUTTER Gender Identity Not on file Sexual Orientation Not on file documented as of this encounter Plan of Treatment Not on file documented as of this encounter Visit Diagnoses Diagnosis Osteoarthrosis, unspecified whether generalized or localized, unspecified site- Primary joint terminal attack controller (current) use of anticoagulants Long-term (current) use of anticoagulants Heart valve replaced by other means documented in this encounter Care Teams Neuropsychologist Relationship Specialty Start Date End Date Sharan Gómez Jr., MD [address] [place] [address] PCP - General 08/10/05 documented as of this encounter
--- OUTSIDE RECORDS SUMMARY | 2025-09-06 06:34 | XMS_ITS | Encounter Summary ---
Author Organization [facility] Address [address] [place] [address] Care Team Providers Care Building Energy Consultant Name Role Phone Rico Muñiz MD, Sharan Jaime Primary Care Provider Encounter Details Date Type Department Care Team (Latest Contact Info) Description 02/29/2000 Outpatient Historical [facility] Sharan Gómez Jr., MD [address] [place] [address] Pure hypercholesterolem (Primary Dx); Heart valve replaced by other means; Osteoporosis, unspecified; half-way (current) use of anticoagulants Social History [...] valve replaced by other means Osteoporosis, unspecified half-way (current) use of anticoagulants Long-term (current) use of anticoagulants documented in this encounter Care Teams Building Energy Consultant Relationship Specialty Start Date End Date Sharan Gómez Jr., MD [address] [place] [phone] PCP - General 08/10/05 documented as of this encounter
--- OUTSIDE RECORDS SUMMARY | 2025-09-06 06:34 | XMS_ITS | Encounter Summary ---
Author Organization [facility] Address [address] Attn: [place] [address] Care Team Providers Care Respiratory Supervisor Name Role Phone Rico Muñiz MD, Sharan Jaime Primary Care Provider Encounter Details Date Type Department Care Team (Late st Contact Info) Description 05/24/2000 Outpatient Historical Sharan Gómez Jr., MD [address] [place] [address] Social History Tobacco Use Types Packs/Day Years Used Date Smoking Tobacco: Never Assessed Comments Unknown Sex and Gender Information Value Date Recorded Sex Assigned at Not on file Legal Sex Female 5:42 AM PRINCIPAL JAVA SOFTWARE ENGINEER Gender Identity Not on file Sexual Orientation Not on file documented as of this encounter Plan of Treatment Not on file documented as of this encounter Visit Diagnoses Not on filedocumented in this encounter Care Teams Respiratory Supervisor Relationship Specialty Start Date End Date Sharan Gómez Jr., MD [address] [place] [address] PCP - General 08/10/05 documented as of this encounter
--- OUTSIDE RECORDS SUMMARY | 2025-09-06 06:34 | XMS_ITS | Encounter Summary ---
Author Organization [facility] Address [address] [place] [address] Care Team Providers Care Group Exercise Manager Name Role Phone Rico Muñiz MD, Sharan Jaime Primary Care Provider Encounter Details Date Type Department Care Team (Latest Contact Info) Description 05/24/2000 Outpatient Historical [facility] Sharan Gómez Jr., MD [address] [place] [address] Unspecified essential hypertension (Primary Dx); Osteoporosis, unspecified Social History Tobacco Use Types Packs/Day Years Used Date Smoking Tobacco: Never Assessed Comments Unknown Sex and Gender Information Value Date Recorded Sex Assigned at Not on file Legal Sex Female 5:42 AM SENIOR WINDOWS SYSTEMS ADMINISTRATOR Gender Identity Not on file Sexual Orientation Not on file documented as of this encounter Plan of Treatment Not on file documented as of this encounter Visit Diagnoses Diagnosis Unspecified essential hypertension- Primary Osteoporosis, unspecified documented in this encounter Care Teams Group Exercise Manager Relationship Specialty Start Date End Date Sharan Gómez Jr., MD [address] [place] [address] PCP - General 08/10/05 documented as of this encounter
--- OUTSIDE RECORDS SUMMARY | 2025-09-06 06:34 | XMS_ITS | Encounter Summary ---
Author Organization [facility] Address [address] [place] [address] Care Team Providers Care Clinical Data Analyst Name Role Phone Rico Muñiz MD, Sharan Jaime Primary Care Provider Encounter Details Date Type Department Care Team (Late st Contact Info) Description 10/18/2020 Lab Requisition [facility] Laboratory Services [address] [place] [address] Tabatha Lynn, [facility] [address] [place] [address] Social History Tobacco Use Types Packs/Day Years Used Date Smoking Tobacco: Never Assessed Comments Unknown Sex and Gender Information Value Date Recorded Sex Assigned at Not on file Legal Sex Female 5:42 AM REAL ESTATE ANALYST Gender Identity Not on file Sexual Orientation Not on file documented as of this encounter Plan of Treatment Not on file documented as of this encounter Procedures Procedure Name Priority Date/Time Associated Diagnosis Comments PROTIME-INR Routine 10/18/2020 6:34 AM REAL ESTATE ANALYST documented in this encounter Results * (ABNORMAL) PROTIME-INR (10/18/2020 6:34 AM REAL ESTATE ANALYST) PROTIME 34.1(H) 11.9 - 15.5 Seconds 10/18/2020 5:19 PM REAL ESTATE ANALYST [facility] INR 3.2(H) 0.8 - 1.2 10/18/2020 5:19 PM REAL ESTATE ANALYST [facility] Blood Collection / Unknown 10/18/2020 6:34 AM REAL ESTATE ANALYST 10/18/2020 4:57 PM REAL ESTATE ANALYST Narrative [facility] - 10/18/2020 5:19 PM REAL ESTATE ANALYST Expected Values for INR: DVT/PE Goal [...] pharmacy Aspen Mitchell, Pharm D. Tabatha Neff [facility] LEAD HEMATOLOGY ORDERABLES Final Result [facility] [address] [place] [address] documented in this encounter Visit Diagnoses Not on filedocumented in this encounter Care Teams Clinical Data Analyst Relationship Specialty Start Date End Date Sharan Gómez Jr., MD [address] [place] [address] PCP - General 08/10/05 documented as of this encounter
--- OUTSIDE RECORDS SUMMARY | 2025-09-06 06:34 | XMS_ITS | Encounter Summary ---
Author Organization [facility] Address [address] [place] [address] Care Team Providers Care Senior Producer Name Role Phone Rico Muñiz MD, Sharan Jaime Primary Care Provider Encounter Details Date Type Department Care Team (Latest Contact Info) Description 06/20/1999 Outpatient Historical [facility] Int Luis [facility] [place] [place] [address] Serge Arrington MD [address] [place] [address] Mitral valve disorder (Primary Dx); Unspecified essential hypertension; Other and unspecified hyperlipidemia; Hematuria Social History Tobacco Use Types Packs/Day Years Used Date Smoking Tobacco: Never Assessed Comments Unknown Sex and Gender Information Value Date Recorded Sex Assigned at Not on file Legal Sex Female 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
--- OUTSIDE RECORDS SUMMARY | 2025-09-06 06:34 | XMS_ITS | Encounter Summary ---
Author Organization [facility] Address [address] [place] [address] Care Team Providers Care Compliance Spec Name Role Phone Rico Muñiz MD, Sharan Jaime Primary Care Provider Encounter Details Date Type Department Care Team (Latest Contact Info) Description 06/20/1999 Outpatient Historical [facility] Services-[facility] [address] [place] [address] Serge Arrington MD [address] [place] [address] Cough (Primary Dx) Social History Tobacco Use Types Packs/Day Years Used Date Smoking Tobacco: Never Assessed Comments Unknown Sex and Gender Information Value Date Recorded Sex Assigned at Not on file 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
[2025-09-06 06:45] LABS: Hematocrit 34.4 % (36-47); Hemoglobin 11.50 g/dL (11.27-16.99); Mean Corpuscular HGB Conc 33.4 g/dL (30-55); Mean Corpuscular Hemoglobin 35.7 pg (27-33); Mean Corpuscular Volume 106.8 fl (85-98); Nucleated Red Blood Cells % 0 %; Platelet Count 192 10^3/cmm (157-399); Red Blood Count 3.22 10^6/uL (3.85-5.65); White Blood Count 4.61 10^3/uL (3.29-11.43)
[2025-09-06 07:09] LABS: Alanine Aminotransferase 13 U/L (0-33); Albumin Level 4.4 g/dL (3.5-5.2); Alkaline Phosphatase 87 U/L (35-105); Anion Gap 14.0 (5-19); Aspartate Amino Transferase 21 U/L (0-32); Blood Urea Nitrogen 18 mg/dL (8-23); Calcium 10.1 mg/dL (8.5-10.5); Carbon Dioxide 25 mmol/L (22-29); Chloride 105 mmol/L (98-107); Creatinine Clr Calc Pharmacy 55.2868; Globulin 2.2 g/dL (1.3-4.6); Glucose 92 mg/dL (65-115); Osmolality Calculated 292 mOsm/kg (285-295); Potassium 4.0 mmol/L (3.5-5.1); Sodium 140 mmol/L (136-145); Total Protein 6.6 g/dL (6.6-8.7); Troponin(5th) Baseline 13 ng/L (0-10)
[2025-09-06 08:14] VITALS: PULSE 66; O2SAT 97
--- NOTE | 2025-09-06 08:21 | ECG_ITS ---
[employer] Event Guide Test Date: 2025-09-06 Pat Name: Odilia Ulloa Department: Room: Gender: Female Turkey Picker: : 1950 Requested By: Josse Contreras Order Number: [id number] Supriya MD: Katrin Petit M.D. Measurements Intervals [place] Rate: 85 P: 0 WI: 0 QRS: 47 QRSD: 128 T: 46 QT: 417 QTc: 497 Interpretive Statements ATRIAL FIBRILLATION MODERATE INTRAVENTRICULAR CONDUCTION DELAY [110+ ms QRS DURATION] ABNORMAL RHYTHM ECG Compared to ECG 09/06/2025 06:23:47 No significant changes Electronically Signed On 09-06-2025 20:18:42 LAMINATION TECHNICIAN by Katrin Petit M.D. [email or web address]
[2025-09-06 09:11] LABS: Troponin 5 2HR 11.00 ng/L (0-10)
[2025-09-06 09:13] LABS: Troponin 5 2HR Delta -2.00 ABS# (0-10)
== END 2025-09-06 10:28 | disposition home or self-care (01) ==
PROVIDERS: Emergency Provider Family Medicine; PCP Family Medicine
DX: R07.89 Other chest pain (principal); G30.9 Alzheimer's disease, unspecified; F02.80 Dementia in other diseases classified elsewhere, unspecified severity, without behavioral disturbance, psychotic disturbance, mood disturbance, and anxiety; Z79.01 Long term (current) use of anticoagulants; Z79.82 Long term (current) use of aspirin; I25.10 Atherosclerotic heart disease of native coronary artery without angina pectoris; E78.5 Hyperlipidemia, unspecified; I13.0 Hypertensive heart and chronic kidney disease with heart failure and stage 1 through stage 4 chronic kidney disease, or unspecified chronic kidney disease; N18.2 Chronic kidney disease, stage 2 (mild); I50.9 Heart failure, unspecified
CPT/HCPCS: 71045; 80053; 84484; 85025; 93005; 99285

== ENCOUNTER 2025-09-08 12:46 | Outpatient (CLI) | payer MEDICARE, MEDICAID, SELFPAY ==
--- NOTE | 2025-09-08 12:57 | USCV_ITS ---
Ulloa Odilia Age: 74 Gender: F : 1950 Exam Date: 09/08/2025 13:12 Ordering Phys: Danny Marmolejo MD Technologist: [place] [facility] [place] [facility] BP: 135 / 80 HR: 83 Rhythm: Sinus Technical Quality: MEASUREMENTS (Male / Female) Normal Values 2D ECHO LV Diastolic Diameter PLAX 4.8 cm 4.2 - 5.9 / 3.9 - 5.3 cm IVS Diastolic Thickness 1.3 cm 0.6 - 1.0 / 0.6 - 0.9 cm IVS Systolic Thickness 2.1 cm LVPW Diastolic Thickness 1.3 cm 0.6 - 1.0 / 0.6 - 0.9 cm LVPW Systolic Thickness 2.0 cm LVOT Diameter 2.0 cm LV Ejection Fraction 2D Teich 61.9 % LV Ejection Fraction MOD 4C 60.5 % LV Ejection Fraction MOD 2C 70.1 % LV Ejection Fraction 2C AL 70.3 % LA Diameter 3.5 cm RA Systolic Volume 4C AL 104.1 ml RA Systolic Volume 4C MOD 99.5 ml Aorta at Sinotubular Diameter 2.6 cm IVC Diameter 2.0 cm M-MODE LA Ao Ratio MM 1.9 AV Cusp Separation MM 1.7 cm DOPPLER AV Peak Velocity 146.7 cm/s LVOT Peak Velocity 95.0 cm/s AV Area Cont Eq vti 2.3 cm squared AV Area Cont Eq pk 2.1 cm squared MV Peak Velocity 165.0 cm/s MV Area PHT 3.7 cm squared Mitral E to A Ratio 7.4 TV Peak Velocity 181.5 cm/s TR Peak Velocity 259.0 cm/s TR Peak Gradient 26.8 mmHg TV Peak E Velocity 134.0 cm/s PV Peak Velocity 66.0 cm/s FINDINGS Left Ventricle Normal left ventricular size and systolic function, EF 61%. Indeterminate left ventricular diastolic function due to mitral valve replacement. Mild left ventricular hypertrophy. Right Ventricle Mildly increased right ventricular size. Normal right ventricular systolic function. Right Atrium Severely increased right atrial size. Left Atrium Severely increased left atrial size. IA Septum Normal interatrial septum. Mitral Valve Mitral valve mechanical prosthesis. Normal mechanical mitral valve function, mean pressure gradient 2.8 mmHg at a heart rate of 69 bpm. Aortic Valve Mild aortic valve regurgitation. No aortic valve stenosis. Tricuspid Valve Severe tricuspid valve regurgitation. Normal pulmonary pressure. Pulmonic Valve Mild pulmonary valve regurgitation. Pericardium No pericardial effusion. Aorta Normal size of the aortic root. IVC IVC not well-visualized. CONCLUSIONS 1. Normal left ventricular size and systolic function, EF 61%. 2. Mild concentric left ventricular hypertrophy 3. Mildly enlarged right ventricle with normal systolic function. 4. Normal functioning mechanical mitral valve prosthesis. 5. Mild aortic valve regurgitation 6. Severe tricuspid valve regurgitation Hema Siu MD, FACC (Electronically Signed) Final Date: 09 September 2025 18:38 S
== END 2025-09-08 12:47 | disposition home or self-care (01) ==
LOC: RAD 12:47
PROVIDERS: PCP Family Medicine; Visit Provider Family Medicine
DX: Z95.2 Presence of prosthetic heart valve (principal); I51.89 Other ill-defined heart diseases; I51.9 Heart disease, unspecified; I35.1 Nonrheumatic aortic (valve) insufficiency; I36.1 Nonrheumatic tricuspid (valve) insufficiency
CPT/HCPCS: 93306

== ENCOUNTER 2025-09-15 09:06 | Outpatient (CLI) | payer MEDICARE, MEDICAID, SELFPAY ==
--- NOTE | 2025-09-15 09:14 | MM_ITS ---
WS: [id number] BILATERAL 3D TOMOSYNTHESIS DIGITAL SCREENING MAMMOGRAPHY WITH CAD CLINICAL INFORMATION: SCREENING HISTORY: Screening mammogram. No current complaints. COMPARISON: 2023 TECHNIQUE: Bilateral CC and MLO views. FINDINGS: Scattered fibroglandular densities bilaterally. No suspicious focal mass, asymmetry, calcifications, or architectural distortion. No evidence of malignancy. Vascular calcification. MM/MM scr tomosynthesis [id number] IMPRESSION: DENSITY: There are scattered areas of fibroglandular density. BI-RADS: 2 - Benign. FOLLOW UP: 1 Year Follow-up Recommend return to annual screening mammography.
== END 2025-09-15 09:07 | disposition home or self-care (01) ==
PROVIDERS: PCP Family Medicine; Visit Provider Family Medicine
DX: Z12.31 Encounter for screening mammogram for malignant neoplasm of breast (principal); R92.323 Mammographic fibroglandular density, bilateral breasts; R92.1 Mammographic calcification found on diagnostic imaging of breast
CPT/HCPCS: 77063; 77067

== ENCOUNTER 2025-09-19 05:21 | Emergency (ER) | payer MEDICARE, MEDICAID, SELFPAY ==
[2025-09-19 05:22] VITALS: BP 135/101; PULSE 85; RESP 20; TEMP 36.7; O2SAT 94; BMI 27.8
--- NOTE | 2025-09-19 05:29 | ECG_ITS ---
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 Measurements Intervals [place] Rate: 79 P: 0 NE: 0 QRS: 30 QRSD: 128 T: 3 QT: 421 QTc: 485 Interpretive Statements ATRIAL FIBRILLATION POSSIBLE RIGHT VENTRICULAR CONDUCTION DELAY [RSR (QR) IN V1/V2] MINIMAL ST DEPRESSION [0.025+ mV ST DEPRESSION] ABNORMAL RHYTHM ECG Compared to ECG 09/06/2025 08:32:01 ST (T wave) deviation now present Intraventricular conduction delay no longer present Electronically Signed On 09-19-2025 13:48:13 FIBERGLASS QUALITY TECHNICIAN by Katrin Petit M.D. [id number]
--- NOTE | 2025-09-19 05:32 | XRR_ITS ---
PROCEDURE INFORMATION: Exam: XR Chest Exam date and time: 09/19/2025 6:25 AM Age: 74 years old Clinical indication: Chest pressure; Prior surgery; Surgery date: 6+ months; Surgery type: Mitral valve replacement. Coronary stents; C/O chest pain; Additional info: Cp TECHNIQUE: Imaging protocol: Radiologic exam of the chest. Views: 1 view. COMPARISON: CR (CHEST, ) 09/06/2025 6:39 AM FINDINGS: Lungs: Linear perihilar opacities are present as well as linear opacities in the lung bases Pleural spaces: Unremarkable. No pleural effusion. No pneumothorax. Heart/Mediastinum: Unremarkable. No cardiomegaly. Bones/joints: Unremarkable. XR/XR chest 1V portable [id number] IMPRESSION: Findings above related to mild congestive changes with some subsegmental atelectasis.
--- OUTSIDE RECORDS SUMMARY | 2025-09-19 05:39 | XMS_ITS | Encounter Summary ---
Author Organization [facility] Address [address] [place] [address] Care Team Providers Care Cdl Service Technician Name Role Phone Rico Muñiz MD, Sharan Jaime Primary Care Provider Encounter Details Date Type Department Care Team (Latest Contact Info) Description 10/27/1998 Outpatient Historical [facility] Sharan Gómez Jr., MD [address] [place] [address] Unspecified essential hypertension (Primary Dx); Chest pain, unspecified; Pneumonia, organism unspecified(486) Social History Tobacco Use Types Packs/Day Years Used Date Smoking Tobacco: Never Assessed Comments Unknown Sex and Gender Information Value Date Recorded Sex Assigned at Not on file 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
--- OUTSIDE RECORDS SUMMARY | 2025-09-19 05:39 | XMS_ITS | Encounter Summary ---
Author Organization [facility] Address [address] [place] [address] Care Team Providers Care Credit Authorizer Name Role Phone Rico Muñiz MD, Sharan Jaime Primary Care Provider Encounter Details Date Type Department Care Team (Latest Contact Info) Description 06/24/2002 Outpatient Historical [facility] [place] [place] [address] Serge Arrington MD [address] [place] [address] Mitral valve disorder (Primary Dx); CORONARY ATHEROSCLER UNSPEC VESSEL; HYPERTENSION NOS; HYPERLIPIDEMIA NEC/NOS Social History Tobacco Use Types Packs/Day Years Used Date Smoking Tobacco: Never Assessed Comments Unknown Sex and Gender Information Value Date Recorded Sex Assigned at Not on file 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
--- OUTSIDE RECORDS SUMMARY | 2025-09-19 05:39 | XMS_ITS | Encounter Summary ---
Author Organization [facility] Address [address] [place] [address] Care Team Providers Care Under Seal Operator Name Role Phone Rico Muñiz MD, Sharan Jaime Primary Care Provider Encounter Details Date Type Department Care Team (Latest Contact Info) Description 02/04/2007 Outpatient Historical [facility] Int Luis AFaisal Lopez [place] [place] [address] Serge Arrington MD [address] [place] [address] Unspecified Essential Hypertension (Primary Dx); Mitral Valve Disorder; Other and Unspecified Hyperlipidemia Social History Tobacco Use Types Packs/Day Years Used Date Smoking Tobacco: Never Assessed Comments Unknown Sex and Gender Information Value Date Recorded Sex Assigned at Not on file 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
--- OUTSIDE RECORDS SUMMARY | 2025-09-19 05:39 | XMS_ITS | Encounter Summary ---
Author Organization [facility] Address [address] [place] [address] Care Team Providers Care Dietician Name Role Phone Rico Muñiz MD, Sharan Jaime Primary Care Provider Encounter Details Date Type Department Care Team (Latest Contact Info) Description 06/29/2004 Outpatient Historical [facility] Int Luis AFaisal Lopez [place] [place] [address] Serge Arrington MD [address] [place] [address] Mitral valve disorder (Primary Dx); HYPERTENSION NOS; HYPERLIPIDEMIA NEC/NOS; OSTEOPOROSIS NOS Social History Tobacco Use Types Packs/Day Years Used Date Smoking Tobacco: Never Assessed Comments Unknown Sex and Gender Information Value Date Recorded Sex Assigned at Not on file Legal 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
--- OUTSIDE RECORDS SUMMARY | 2025-09-19 05:39 | XMS_ITS | Encounter Summary ---
Author Organization [facility] Address [address] [place] [address] Care Team Providers Care Locomotive Engineer Diesel Name Role Phone Rico Muñiz MD, Sharan Jaime Primary Care Provider Encounter Details Date Type Department Care Team (Latest Contact Info) Description 07/04/2005 Outpatient Historical [facility]-Faisal Lopez [place] [address] [place] [address] Serge Arrington MD [address] [place] [address] HYPERTENSION NOS (Primary Dx) Social History Tobacco Use Types Packs/Day Years Used Date Smoking Tobacco: Never Assessed Comments Unknown Sex and Gender Information Value Date Recorded Sex Assigned at Not on file 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
--- OUTSIDE RECORDS SUMMARY | 2025-09-19 05:39 | XMS_ITS | Continuity of Care Document ---
Author Organization DAI Kenneth Haas [facility] Luis M, Keenan, [facility] ([facility]) Address [address] [place] [address] Care Team Providers Care Distribution Engineering Technologist Name Role Phone LYN MARMOLEJO Primary Care Provider Assessment No assessment recorded. Plan of Treatment Reminders Order Date Submit Date Provider Last Modified By Organization Details Last Modified Time Details Appointments None recorded . Lab CMP, serum or plasma - ORDERS FROM [facility] 025 09/09/20 [place] [facility], [address] [facility] [address], [place], [address], 10:43:32 Referral None recorded . Procedures None recorded . Surgeries None recorded . Imaging None recorded . Medication Orders None recorded . Patient TargetsNo targets recorded. Patient InstructionsNo instructions recorded. Reason for Referral None Reported. Results Created Date Observation Date Name Description Value Unit Range Abnormal Flag Note LastModifiedBy Organization Detail LastModifiedTime 08/17/2008/17/2025 CBC WBC 6.3 x10 4.0-10 .5 Not Available [facility] [address], [place], [address], 08/17/2025 15:57:00 08/17/2008/17/2025 CBC RBC 3.45 x10 3.50-5 .50 low Not Available [facility] [address], [place], [address], 08/17/2025 15:57:00 08/17/20 08/17/2025 CBC HGB 12.4 g/dL 12.0-1 6.0 Not Available [facility] [address] [facility] 1, [place], [address], 08/17/2025 15:57:00 08/17/20 25 08/17/2025 CBC HCT 37.7 % 37.0-4 7.0 Not Available [facility] [address] [facility] [facility], [place], [address], 08/17/2025 15:57:00 08/17/2008/17/2025 CBC MCV 109.2 fL 80.0-9 9.9 high Not Available [facility] [address] [facility] [facility] 1, [place], [address], 08/17/2025 15:57:00 08/17/20 25 08/17/2025 CBC MCH 36.0 pg 27.0-3 2.0 high Not Available [facility] [address] [facility] [address] [facility] 1, [place], [address], 08/17/2025 15:57:00 08/17/20 25 08/17/2025 CBC MCHC 32.9 g/dL 32.0-3 6.0 Not Available [facility] [address] [facility] 1, [place], [address], 08/17/2025 15:57:00 08/17/20 25 08/17/2025 CBC RDW 12.7 % 11.5-1 4.5 Not Available [facility] [address] [facility] [facility] 1, [place], [address], 08/17/2025 15:57:00 08/17/2008/17/2025 CBC plt 239.0 x10 140.0- 451.0 Not Available [facility] [address] [facility] [address] [facility] 1, [place], [address], 08/17/2025 15:57:00 08/17/20 25 08/17/2025 CBC lymphocytes % 27.7 % 20.0-5 0.0 Not Available [facility] [address] [facility] 1, [place], [address], 08/17/2025 15:57:00 08/17/20 25 08/17/2025 CBC granulcytes % 56.9 % 30.0-7 0.0 Not Available [facility] [address] [facility], [place], [address], 08/17/2025 15:57:00 08/17/20 25 08/17/2025 CBC monocytes % 10.1 % 2.0-16 .0 Not Available [facility] [address] [address], [place], [address], 08/17/2025 15:57:00 08/17/20 25 08/17/2025 CBC granulcytes# 3.6 x10 Not Cyndi ilable [facility] [address] [address], [place], [address], 08/17/2025 15:57:00 08/17/20 25 08/17/2025 CBC lymphocytes # 1.8 x10 Not Available [facility] [address] [facility] 1, [place], [address], 08/17/2025 15:57:00 08/17/20 25 08/17/2025 CBC monocytes # 0.6 x10 Not Avai lable [facility] [address] [address], [place], [address], 08/17/2025 15:57:00 08/17/20 25 08/17/2025 TSH TSH 0.81 uIU/m L 0.49-3 .82 Not Available [facility] [address] [address], [place], [address], 08/17/2025 16:04:05 08/17/20 25 08/18/2025 PERIP HERAL BLOOD SMEAR REVIE W peripheral blood smear review Macro cytos is 1 + Ovalo cytes 1 + Polyc hroma mikhail 1 + Revie w of the perip heral smear revea ls adequ ate numbe rs of plate lets. Revie w of perip heral smear confi jace autom ated resul ts. Not Available [employer] [facility] [address] [place], [address], 08/18/2025 15:11:08 08/17/20 25 08/19/2025 METHY LMALO SE ACID AND HOMOC YSTEI NE methylmaloni c acid 227 nmol/ L 69-390 See Note 1 Serum methy lmalo se acid (MMA) level s are used to diagn ose and monit or sever al rare inbor n error s of metab olism , inclu ding methy lmalo se acidu adam. The enzym atic conve rsion of MMA to succi se acid requi res vitam in B12 (mayur osyl- cobal hua) as a cofac tor. Serum MMA level s are also used for asses sing funct ional vitam in B12 defic iency . Vitam in B12 is essen tial for neuro devel opmen t, parti cular ly early in pregn jase. Undia gnose d mater nal vitam in B12 defic iency may be assoc iated with adver se /neon atal outco mes, such as neura l tube defec ts and intra uteri ne growt h restr ictio n. [facility] utili zed Multi -Moda l Decom posit ion (MMD) hernan sis to estab esperanza first and secon d trime ster- speci fic MMA refer ence inter vals in pregn jase, as given below : MMA, First trime ster (<13 wks gesta tion) : 58-16 7 nmol/ L MMA, Secon d trime ster (13-2 3 wks gesta tion) : 63-24 1 nmol/ L Not Available [employer] [facility] [address] [place], [address], 08/20/2025 00:38:15 08/17/2008/19/2025 METHY LMALO SE ACID AND HOMOC YSTEI NE homocysteine 11.0 umol/ L < or = 13.4 Homoc ystei ne is incre ased by funct ional defic iency of folat e or vitam in B12. Testi ng for methy lmalo se acid diffe renti ates betwe en these defic ienci es. Other cause s of incre ased homoc ystei ne inclu de renal failu re, folat e antag onist s such as metho trexa te and pheny toin, and expos ure to nitro us oxide . Demetrio Cartagena, et al., Destiny Inter n Med. 1999; 131(5 ):331 -9. Note 1 This test was devel oped and its hernan tical perfo rmanc e cresencio cteri stics have been deter mined by [employer] [facility]. It has not been clear ed or appro shiela by the FDA. This assay has been valid ated pursu ant to the CLIA regul ation s and is used for clini luisito purpo ses. Not Available [facility] [address] [address] [place], [address], 08/20/2025 00:38:15 08/17/2008/19/2025 PROTE IN, TOTAL AND PROTE IN ELECT ROPHO RESIS W/ REFL [place] protein, total 7.1 g/dL 6.1-8. 1 normal Not Available [facility] [address] [address] [place], [address], 08/20/2025 00:38:16 08/17/2008/19/2025 PROTE IN, TOTAL AND PROTE IN ELECT ROPHO RESIS W/ REFL [place] albumin 4.5 g/dL 3.8-4. 8 normal Not Available [facility] [address] [address] [place], [address], 08/20/2025 00:38:16 08/17/2008/19/2025 PROTE IN, TOTAL AND PROTE IN ELECT ROPHO RESIS W/ REFL [place] alpha 1 globulin 0.3 g/dL 0.2-0. 3 normal Not Available [address], [address], 08/20/2025 00:38:16 08/17/20 25 08/19/2025 PROTE IN, TOTAL AND PROTE IN ELECT ROPHO RESIS W/ REFL [place] alpha 2 globulin 0.5 g/dL 0.5-0. 9 normal Not Available [address], [address], 08/20/2025 00:38:16 08/17/2008/19/2025 PROTE IN, TOTAL AND PROTE IN ELECT ROPHO RESIS W/ REFL [place] beta 1 globulin 0.4 g/dL 0.4-0. 6 normal Not Available [address], [address], 08/20/2025 00:38:16 08/17/20 25 08/19/2025 PROTE IN, TOTAL AND PROTE IN ELECT ROPHO RESIS W/ REFL [place] beta 2 globulin 0.3 g/dL 0.2-0. 5 normal Not Available [address], [address], 08/20/2025 00:38:16 08/17/20 25 08/19/2025 PROTE IN, TOTAL AND PROTE IN ELECT ROPHO RESIS W/ REFL [place] gamma globulin 1.1 g/dL 0.8-1. 7 normal Not Available [address], [address], 08/20/2025 00:38:16 08/17/20 25 08/19/2025 PROTE IN, TOTAL AND PROTE IN ELECT ROPHO RESIS W/ REFL [place] interpretati on No restr icted band (M-sp mera) seen. Not Available [address], [address], 08/20/2025 00:38:16 08/17/20 25 08/19/2025 PTH, INTAC T (ICMA ) AND IONIZ ED CALCI UM parathyroid hormone, intact 173 pg/mL 16-77 high Inter preti ve Guide [...] or Low Joie l High Not Available [address], [address], 08/20/2025 00:38:16 08/17/20 25 08/19/2025 PTH, INTAC T (ICMA ) AND IONIZ ED CALCI UM calcium 10.2 mg/dL 8.6-10 .4 normal Not Available [address], [address], 08/20/2025 00:38:16 08/17/20 25 08/19/2025 PTH, INTAC T (ICMA ) AND IONIZ ED CALCI UM calcium, ionized 5.6 mg/dL 4.7-5. 5 high Not Available [employer] [address], [address], 08/20/2025 00:38:16 08/17/20 25 08/19/2025 T4, FREE T4, free 1.9 NG/dL 0.8-1. 8 high Not Available [employer] [address], [address], 08/20/2025 00:38:17 08/17/20 25 08/19/2025 VITAM IN B12 vitamin B12 >2000 pg/mL 200-11 00 high Not Available [employer] [address] [place], [address], 08/20/2025 00:38:18 08/17/20 25 08/17/2025 PT/IN R Protime 21.5 Not Available [facility] [address] [place], [address], 08/17/2025 14:33:48 08/17/20 25 08/17/2025 PT/IN R INR 1.8 Not Available [facility] [address] [place] [address], [address], 08/17/2025 14:33:48 09/02/20 25 09/02/2025 PT/IN R Protime 29.0 Not Available [facility] [address] [place] [address], [phone], 09/02/2025 13:17:30 09/02/20 25 09/02/2025 PT/IN R INR 2.4 Not Available [facility] [address] [place] [address], [phone], 09/02/2025 13:17:30 09/09/20 25 09/09/2025 CMP (FEMA LE) glucose 93.0 mg/dL 60.0-9 9.0 Not Available [address], [address], 09/09/2025 10:43:31 09/09/20 25 09/09/2025 CMP (FEMA LE) BUN (blood urea nitrogen) 20.0 mg/dL 10.0-2 6.0 Not Available [facility] [address] [place] [address] [place], [address], 09/09/2025 10:43:31 09/09/20 25 09/09/2025 CMP (FEMA LE) creatinine (serum) 0.9 mg/dL 0.4-1. 5 Not Available [facility] [address] [facility] 1, [place], [address], 09/09/2025 10:43:31 09/09/20 25 09/09/2025 CMP (FEMA LE) BUN/creatini ne ratio 22.22 ratio Not Available [facility] [address] [facility] 1, [place], [address], 09/09/2025 10:43:31 09/09/20 25 09/09/2025 CMP (FEMA LE) eGFR calculated 64.9 Not Available [facility] [address] [facility], [place], [address], 09/09/2025 10:43:31 09/09/20 25 09/09/2025 CMP (FEMA LE) total protein 7.5 g/dL 6.0-8. 5 Not Available [facility] [address] [facility], [place], [address], 09/09/2025 10:43:31 09/09/20 25 09/09/2025 CMP (FEMA LE) total bilirubin 1.1 mg/dL 0.2-1. 3 Not Available [facility] [address] [facility], [place], [address], 09/09/2025 10:43:31 09/09/20 25 09/09/2025 CMP (FEMA LE) albumin 5.0 g/dL 3.5-5. 5 Not Available [facility] [address] [facility], [place], [address], 09/09/2025 10:43:31 09/09/20 25 09/09/2025 CMP (FEMA LE) globulin 2.5 calc Not Available [facility] [address] [facility], [place], [address], 09/09/2025 10:43:31 09/09/20 25 09/09/2025 CMP (FEMA LE) AST (SGOT) 35.0 U/L 0.0-46 .0 Not Available [facility] [address] [facility] [facility] 1, [place], [address], 09/09/2025 10:43:31 09/09/20 25 09/09/2025 CMP (FEMA LE) altv (SGPT) 17.0 U/L 13.0-6 9.0 normal Not Available [facility] [address] [facility], [place], [address], 09/09/2025 10:43:31 09/09/20 25 09/09/2025 CMP (FEMA LE) A/G ratio 2.0 ratio Not Available [facility] [address] [facility] 1, [place], [address], 09/09/2025 10:43:31 09/09/20 25 09/09/2025 CMP (FEMA LE) ALP phos 77.0 U/L 30.0-1 40.0 normal Not Available [facility] [address] [facility], [place], [address], 09/09/2025 10:43:31 09/09/20 25 09/09/2025 CMP (FEMA LE) calcium 10.4 mg/dL 8.4-10 .5 Not Available [facility] [address] [facility] 1, [place], [address], 09/09/2025 10:43:31 09/09/20 25 09/09/2025 CMP (FEMA LE) sodium 139.0 mmol/ L 136.0- 145.0 Not Available [facility] [address] [facility] 1, [place], [address], 09/09/2025 10:43:31 09/09/20 25 09/09/2025 CMP (FEMA LE) potassium 4.2 mmol/ L 3.5-5. 1 Not Available [facility] [address] [facility] 1, [place], [address], 09/09/2025 10:43:31 09/09/20 25 09/09/2025 CMP (FEMA LE) chloride 105.0 mmol/ L 98.0-1 10.0 normal Not Available [facility] [address] [facility] [address] [facility] 1, [place], [address], 09/09/2025 10:43:31 09/09/20 25 09/09/2025 CMP (FEMA LE) C02 28.0 mmol/ L 22.0-3 1.0 Not Available [facility] [address] [facility], [place], [address], 09/09/2025 10:43:31 09/09/20 25 09/09/2025 CMP (FEMA LE) anion gap 6.0 calc Not Available [facility] [address] [facility] 1, [place], [address], 09/09/2025 10:43:31 09/09/20 25 09/09/2025 CMP (FEMA LE) osmolality 289.3 calc Not Available [facility] [address] [facility] 1, [place], [address], 09/09/2025 10:43:31 09/09/20 25 09/08/2025 US, echoc ardio gram, trans thora cic, compl ete, w/ color flow No observ ation record ed. [facility] [address], [place], [address], 09/11/2025 09:19:21 09/15/20 25 09/15/2025 MAMMO , scree ilya, digit al, bilat eral No observ ation record ed. [email or web address] [facility] [address] [place], [address], 09/16/2025 16:09:54 Result Notes None recorded. Problems Name Problem SNOMED Code Status Onset Date Resolution Date Notes Provider Name and Address Organization Details Recorded Time Depressi ve disorder 07793849 Completed 202010/14/2021 Depressi on - Status is Inactive ; 10/14/20 11:08AM by Maryellen Marmolejo PA-C, Annotati on/Adden dum; Promoted ; acuity set as *; FELISHA hamilton [facility] 5 07:56:57 Herpes zoster 4266462 Completed 202201/02/2025 SHINGLES FELISHA hamilton, [facility] 5 07:56:03 Dysthymi a 98183158 Active 2022 DEPRESSI ON WITH ANXIETY FELISHA hamilton [facility] 5 07:55:28 Benign essentia l hyperten jovanni 9425642 Active 2022 FELISHA hamilton [facility] 5 07:55:28 Gastroes ophageal reflux disease 547940296 Active 2022 FELISHA hamilton [facility] 5 07:55:28 Fracture of upper end of humerus 203312916 Completed 202201/02/2025 CLOSED FRACTURE OF PROXIMAL END OF RIGHT HUMERUS, SEQUELA FELISHA hamilton [facility] 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 5 07:56:22 Atrial fibrilla tion 61761719 Active 2022 FELISHA hamilton, [facility] 3 14:45:05 Coronary atherosc lerosis 782139375 Active 2022 bare metal stents to circ and LAD 2011 FELISHAJAMIE DESIR null, [facility] 3 14:46:30 Iron deficien cy anemia 22124877 Active 2022 FELISHA DESIR null, [facility] 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 3 14:45:59 Anxiety 30584430 Active 2022 FELISHA hamilton, [facility] 3 14:46:54 Viral hepatiti s C 00358528 Active 2022 FELISHA DESIR [facility], [facility] 5 07:55:28 Moderate recurren t major depressi on 93440205 Active 2023 FELISHA DESIR [facility], [facility] 5 07:55:28 Need for personal care assistan ce 24800625231 674305 Active 2023 FELISHA hamilton, [facility] 5 07:55:28 Frail elderly 447942686 Active 2023 FELISHA DESIR null, [facility] 5 07:55:28 Seasonal allergic rhinitis 960787971 Active 2023 FELISHA DESIR [facility], [facility] 5 07:55:28 Chronic pain 78159957 Active 2023 FELISHA hamilton, [facility] 5 07:55:28 Dementia 02417382 Active 2023 FELISHA DESIR null, [facility] 5 07:55:28 Constipa tion 98886066 Active 2023 FELISHA DESIR null, [facility] 5 07:55:44 Hyperlip idemia 66801032 Active 2024 FELISHA DESIR null, [facility] 5 07:59:38 Occult blood detected in feces 58252024 Active 2024 FELISHA DESIR null, [facility] 5 09:13:35 Mean corpuscu lar volume above referenc e range 014358197 Active 2024 FELISHA DESIR null, [facility] 5 09:14:07 Hypercal cemia 15362454 Active 2024 FELISHA DESIR [facility], [facility] 5 10:07:49 Vitamin D deficien cy 28135315 Active 2024 Lyn Marmolejo MD [address] [place] [address], [phone], [facility] 5 12:54:55 Hyperpar athyroid ism 25853839 Active 2024 Lyn Marmolejo MD [address] [place] [address], [phone], [facility], L[facility]ueLJosueCJosue 5 12:54:56 Dysuria 09314389 Active 2024 Dotty Celis null, [facility] 5 14:08:08 Problem Notes None recorded. Procedures Surgical History Date Name Laterality Status Provider Name and Address Organization Details Recorded Time 2024 Most Recent Mammogram completed FELISHA [facility] 5 16:09:39 2024 esophagogastroduodenoscopy completed YANELIS WELSH [facility] 5 12:23:16 2024 colonoscopy completed FELISHA [facility] 5 10:20:11 2023 esophagogastroduodenoscopy completed KIARA DUCKWORTH [facility] 4 12:40:14 2023 colonoscopy completed Lyn Marmolejo MD [address] [place] [address], [phone], [facility] 5 10:19:30 [facility] 14:48:40 replacement of mitral valve complete d [facility] 3 14:49:22 section completed [facility] 3 15:14:43 Imaging Results None recorded. Procedure Notes None recorded. Medical Equipment None Reported. Allergies Allergen ID Allergen Name Allergen Category Reaction Reaction Severity Criticality Documentation Date Start Date Code Code System Note Provider Name and Address Organization Details Recorded Time 1376 morphine medicatio n Not available Not available Not available 02/07/2023 7052 RxNorm Dotty Vimal hamilton [facility] 3 10:45:47 1377 diltiazem Not available Not available Not available Not available 02/07/2023 3443 RxNorm Dotty Vimalcarlene hamilton [facility] 3 10:45:54 4552 Bactrim medicatio n other severe high 04/17/2023 91565 9 RxNorm do not give d/t couma din Lola Marcy null, [facility] 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 3 12:26:48 Medications Name [...] 6 take 1 tablet po X 1 08/17 completed Not Available Not Available Not Available Milk of Magnesia 400 mg/5 mL [...] TABLET BY MOUTH TWICE DAILY FOR EDEMA 08/24 completed Not Available Not Available Not Available Pepto-Bis mol 524 mg/30mL oral suspensio n every 6 hrs prn stomach upset or diarrhea 02/17 completed Not Available Not Available Not Available lorazepam 0.5 mg tablet take one up to q q8 hours and no more than 2 in 24 hours prn anxiety 2024 active Not Available Not Available Not Avai lable gentamici n 0.3 % eye drops 10/28 [...] MOUTH THREE TIMES DAILY NEEDED FOR ANXIETY 08/17 completed Not Available Not Available Not Available cyanocoba bernie (vit B-12) 1,000 mcg [...] 11/13/19 23 3:03PM by Dotty Larry RN (i candelario through Lyn Marmolejo MD), Refill Request; Refill Quantity : 30; Capsule; Not Available Not Available Not Available furosemid e daily 06/08 completed 436; Recorded 01/02/20 23 3:43PM by Felisha Desir LPN (Authori zed through Lyn Marmolejo MD), Refill Request; Refill Quantity : 30; Tablet; Not Available Not Available Not Available fiber 06/08 completed Not Available Not Available Not Available [facility] Levothyro xine Sodium daily 06/08 completed 55335; Recorded 01/09/20 6:06PM by Shirley Quevedo (Authori [...] LastModified Time Tobacco Smoking Status Former Smoker DAI [facility]. 04/17/2023 14:48:01 What Was The Date Of Your Most Recent Tobacco Screening? 05/27/2025 [email or web address] Information not available 05/27/2025 Sex: Unknown Functional Status Question Answer Note LastModified by Organizat ion Details LastModified Time Do you use any illicit or recreational drugs? No [email or web address] Information not available 04/17/2023 Do you or have you ever used any other forms of tobacco or nicotine? No [email or web address] Information not available 06/29/2023 What is your level of alcohol consumption? None [email or web address] Information not available 04/17/2023 Mental Status None recorded. Family History Relationship Description Onset Age of this Age Resolved Age Notes LastModified by Organization Details LastModified Time Unspecified Relation Coronary atherosclero sis [email or web address] Not available 06/29 15:13:48 Medical History No medical history recorded. Gynecological History Statement/Question Response Most Recent Mammogram 09/15/2025 Obstetrics History GPAL:G 0 P 0 0 0 0 Immunizations Vaccine Type Date Status Note Provider Nam e and Address Organization Details Recorded Time Influenza, MDCK, quadrivalent, PF 2 completed FELISHA hamilton [facility] 10/10/2024 08:38:58 COVID-19, mRNA, LNP-S, PF, 100 mcg/0.5mL dose or 50 mcg/0.25mL dose 1 completed FELISHA hamilton [facility] 10/10/2024 08:38:58 COVID-19, mRNA, LNP-S, PF, 100 mcg/0.5mL dose or 50 mcg/0.25mL dose 1 completed FELISHA hamilton [facility] 10/10/2024 08:38:58 COVID-19, mRNA, LNP-S, PF, 100 mcg/0.5mL dose or 50 mcg/0.25mL dose 2 completed FELISHA hamilton [facility] 10/10/2024 08:38:58 Pneumococcal conjugate PCV20, polysaccharide [id number] conjugate, adjuvant, PF 3 completed FELISHA hamilton [facility] 10/10/2024 08:38:58 COVID-19, mRNA, LNP-S, bivalent, PF, 50 mcg/0.5 mL or 25mcg/0.25 mL dose 3 completed FELISHA DESIR null, [facility] 10/10/2024 08:38:58 pneumococcal polysaccharide PPV23 3 completed FELISHA DESIR null, [facility] 04/17/2023 12:02:00 Tdap 1 completed FELISHA DESIR null, [facility] 10/10/2024 08:38:58 Influenza, split virus, trivalent, PF 3 completed FELISHA DESIR null, [facility] 04/17/2023 12:02:00 influenza, split (incl. purified surface antigen) 0 completed FELISHA DESIR null, [facility] 04/17/2023 12:02:00 Hep A, adult 1 completed FELISHA DESIR null, [facility] 10/10/2024 08:38:58 Hep A, adult 9 completed FELISHA DESIR null, [facility] 10/10/2024 08:38:58 Influenza, split virus, quadrivalent, PF 1 completed FELISHA DESIR null, [facility] 10/10/2024 08:38:58 Influenza, split virus, quadrivalent, PF 9 completed FELISHA DESIR null, [facility] 10/10/2024 08:38:58 Influenza, MDCK, trivalent, PF 4 completed FELISHA DESIR null, [facility] 10/10/2024 08:38:58 Influenza, MDCK, quadrivalent, preservative 3 completed FELISHA hamilton, [facility] 10/10/2024 08:38:58 pneumococcal polysaccharide PPV23 8 completed Lola hamilton, [facility] 07/02/2024 08:41:52 Influenza, split virus, quadrivalent, PF 8 completed Lola hamilton, [facility] 07/02/2024 08:41:52 zoster recombinant 3 completed Lola hamilton, [facility] 07/02/2024 14:52:40 COVID-19, mRNA, LNP-S, PF, 50 mcg/0.5 mL 4 completed FELISHA hamilton, [facility] 10/10/2024 08:38:58 Influenza, MDCK, trivalent, preservative 4 completed FELISHA hamilton, [facility] 10/10/2024 08:38:58 Past Encounters Encounter ID Performer Location Encounter Start Date Encounter Closed Date Diagnosis/Indication Diagnosis SNOMED-CT Code Diagnosis ICD10 Code Diagnosis IMO Codes Diagnosis Note [id number] Lyn Marmolejo MD [facility] ([facility]) [address] [place] [phone] 08/17/2025 13:17:17 08/18/2025 09:51:22 History of mechanical prosthetic mitral valve replacement 522812851 Z95.2 Mean corpu scular volume above reference range 695132176 R71.8 509870 Hypercalcemia 10732785 E 83.52 9955 Drug therapy finding 309 816928 Z79.899 [id number] Generalize d anxiety disorder 84490936 F41.1 [id number] Lyn Marmolejo MD [facility] ([facility]) [address] [place] [address] [phone] 09/02/2025 13:16:47 09/03/2025 10:16:00 History of mechanical prosthetic mitral valve replacement 414543199 Z95.2 [id number] Lyn Marmolejo MD [facility] ([facility]) [address] [place] [address] 09/09/2025 09:58:14 09/10/2025 09:52:18 Benign essential hypertension 6427204 I10 Health Concerns Section Related Observation LastModified by Organization Detai ls LastModified Time None Recorded Concern Status LastModified by Organization Details LastModified Time None Recorded Payers Encounter Date Sequence Insurance Name Policy Number Policy Hernandez Covered Member ID Hernandez Member ID Guarantor Name 09/09/2025 1 [id number] - [place]PO) [id number] Odilia Ulloa [id number] Odilia Ulloa 09/09/2025 2 [place] Odilia Ulloa [id number] Odilia Ulloa OBGyn Episode No OBEpisode recorded.
--- OUTSIDE RECORDS SUMMARY | 2025-09-19 05:39 | XMS_ITS | Continuity of Care Document ---
Author Organization [facility] Kenneth Haas [facility] Luis M, Keenan, [facility] ([facility]) Address [address] [place] [address] Care Team Providers Care Manager Dairy Name Role Phone LYN MARMOLEJO Primary Care Provider Assessment No assessment recorded. Plan of Treatment Reminders Order Date Submit Date Provider Last Modified By Organization Details Last Modified Time Details Appointments None record ed. Lab None record ed. Referral None record ed. Procedures None record ed. Surgeries None record ed. Imaging None record ed. Medication Orders None record ed. Patient TargetsNo targets recorded. Patient InstructionsNo instructions recorded. Reason for Referral None Reported. Results Created Date Observation Date Name Description Value Unit Range Abnormal Flag Note LastModifiedBy Organization Detail LastModifiedTime 06/05/2006/05/2025 HBA1C hemaglobin A1C 5.7 4.2-6. 5 Not Available [facility] [address], [address], 06/05/2025 12:56:12 06/05/2006/05/2025 CMP (FEMA LE) glucose 86.0 mg/dL 60.0-9 9.0 Not Available [facility] [address] [facility], [place], [address], 06/05/2025 12:57:50 06/05/2006/05/2025 CMP (FEMA LE) BUN (blood urea nitrogen) 17.0 mg/dL 10.0-2 6.0 Not Available [facility] 805 [facility] [address] [place], [address], 06/05/2025 12:57:50 06/05/20 25 06/05/2025 CMP (FEMA LE) creatinine (serum) 0.9 mg/dL 0.4-1. 5 Not Available [facility] [address] [facility], [place], [address], 06/05/2025 12:57:50 06/05/20 25 06/05/2025 CMP (FEMA LE) BUN/creatini ne ratio 18.89 ratio Not Available [facility], [place], [address], 06/05/2025 12:57:50 06/05/20 25 06/05/2025 CMP (FEMA LE) eGFR calculated 64.9 Not Available [facility] [address] [facility] [place] [facility], [place], [address], 06/05/2025 12:57:50 06/05/20 25 06/05/2025 CMP (FEMA LE) total protein 7.6 g/dL 6.0-8. 5 Not Available [facility] [address] [facility] [place] [facility], [place], [address], 06/05/2025 12:57:50 06/05/20 25 06/05/2025 CMP (FEMA LE) total bilirubin 1.1 mg/dL 0.2-1. 3 Not Available [facility] 805 [facility], [place], [address], 06/05/2025 12:57:50 06/05/20 25 06/05/2025 CMP (FEMA LE) albumin 4.5 g/dL 3.5-5. 5 Not Available [facility]05 [facility], [place], [address], 06/05/2025 12:57:50 06/05/20 25 06/05/2025 CMP (FEMA LE) globulin 3.1 calc Not Available [facility] [address] [place] [facility] 1, [place], [address], 06/05/2025 12:57:50 06/05/20 25 06/05/2025 CMP (FEMA LE) AST (SGOT) 28.0 U/L 0.0-46 .0 Not Available [facility] [address] [facility], [place], [address], 06/05/2025 12:57:50 06/05/20 25 06/05/2025 CMP (FEMA LE) altv (SGPT) 14.0 U/L 13.0-6 9.0 normal Not Available [facility] [address] [facility], [place], [address], 06/05/2025 12:57:50 06/05/20 25 06/05/2025 CMP (FEMA LE) A/G ratio 1.5 ratio Not Available [facility] [address] [facility], [place], [address], 06/05/2025 12:57:50 06/05/20 25 06/05/2025 CMP (FEMA LE) ALP phos 87.0 U/L 30.0-1 40.0 normal Not Available [facility] [address] [facility], [place], [address], 06/05/2025 12:57:50 06/05/20 25 06/05/2025 CMP (FEMA LE) calcium 10.6 mg/dL 8.4-10 .5 high Not Available [facility] 805 [facility] [place] [facility] 1, [place], [address], 06/05/2025 12:57:50 06/05/20 25 06/05/2025 CMP (FEMA LE) sodium 140.0 mmol/ L 136.0- 145.0 Not Available [facility] [address] [facility] [place] [facility] 1, [place], [address], 06/05/2025 12:57:50 06/05/20 25 06/05/2025 CMP (FEMA LE) potassium 4.8 mmol/ L 3.5-5. 1 Not Available [facility] [address] [facility], [place], [address], 06/05/2025 12:57:50 06/05/20 25 06/05/2025 CMP (FEMA LE) chloride 106.0 mmol/ L 98.0-1 10.0 normal Not Available [facility] [address] [facility], [place], [address], 06/05/2025 12:57:50 06/05/20 25 06/05/2025 CMP (FEMA LE) C02 27.0 mmol/ L 22.0-3 1.0 Not Available [facility] [address] [facility], [place], [address], 06/05/2025 12:57:50 06/05/20 25 06/05/2025 CMP (FEMA LE) anion gap 7.0 calc Not Available [facility] [address] [facility] 1, [place], [address], 06/05/2025 12:57:50 06/05/20 25 06/05/2025 CMP (FEMA LE) osmolality 290.0 calc Not Available [facility] [address] [facility], [place], [address], 06/05/2025 12:57:50 06/05/20 25 06/05/2025 LIPID PROFI LE (FEMA LE) cholesterol 227.0 mg/dL 0.0-20 0.0 high Not Available [facility] [address] [facility], [place], [address], 06/05/2025 12:57:53 06/05/20 25 06/05/2025 LIPID PROFI LE (FEMA LE) trig 134.0 mg/dL 0.0-15 0.0 Not Available [facility] 805 [facility] 1, [place], [address], 06/05/2025 12:57:53 06/05/20 25 06/05/2025 LIPID PROFI LE (FEMA LE) HDL - direct 51.0 mg/dL >40.0 Not Available [facility] 805 [facility] 1, [place], [address], 06/05/2025 12:57:53 06/05/20 25 06/05/2025 LIPID PROFI LE (FEMA LE) VLDL - direct 26.8 mg/dL Not Available [facility] 805 [facility] 1, [place], [address], 06/05/2025 12:57:53 06/05/20 25 06/05/2025 LIPID PROFI LE (FEMA LE) LDL - direct 149.2 mg/dL 0.0-13 0.0 high Not Available [facility] 805 [facility] 1, [place], [address], 06/05/2025 12:57:53 06/05/20 25 06/05/2025 TSH TSH 0.83 uIU/m L 0.49-3 .82 Not Available [facility] 805 [facility] 1, [place], [address], 06/05/2025 14:15:28 06/05/2006/06/2025 HEPAT ITIS B SURFA CE ANTIB RASHARD QL hepatitis B surface antibody ql NON-RE ACTIVE non-re active normal Not Available [facility] [address], [place], [address], 06/06/2025 09:58:04 06/11/2006/11/2025 CMP (FEMA LE) glucose 88.0 mg/dL 60.0-9 9.0 Not Available [facility]05 [facility] [place] [facility], [place], [address], 06/11/2025 13:16:16 06/11/20 25 06/11/2025 CMP (FEMA LE) BUN (blood urea nitrogen) 25.0 mg/dL 10.0-2 6.0 Not Available [facility] 805 [facility], [place], [address], 06/11/2025 13:16:16 06/11/20 25 06/11/2025 CMP (FEMA LE) creatinine (serum) 1.1 mg/dL 0.4-1. 5 Not Available [facility] 805 [facility], [place], [address], 06/11/2025 13:16:16 06/11/20 25 06/11/2025 CMP (FEMA LE) BUN/creatini ne ratio 22.73 ratio Not Available [facility] 805 [facility], [place], [address], 06/11/2025 13:16:16 06/11/20 25 06/11/2025 CMP (FEMA LE) eGFR calculated 51.[address] [facility] 805 [facility], [place], [address], 06/11/2025 13:16:16 06/11/20 25 06/11/2025 CMP (FEMA LE) total protein 7.7 g/dL 6.0-8. 5 Not Available [facility] 805 [facility] [place] [facility] 1, [place], [address], 06/11/2025 13:16:16 06/11/20 25 06/11/2025 CMP (FEMA LE) total bilirubin 0.9 mg/dL 0.2-1. 3 Not Available [facility] [address] [facility] [place] [facility], [place], [address], 06/11/2025 13:16:16 06/11/20 25 06/11/2025 CMP (FEMA LE) albumin 4.6 g/dL 3.5-5. 5 Not Available [facility] [address] [facility], [place], [address], 06/11/2025 13:16:16 06/11/20 25 06/11/2025 CMP (FEMA LE) globulin 3.1 calc Not Available [facility] 8[address] [facility] 1, [place], [address], 06/11/2025 13:16:16 06/11/20 25 06/11/2025 CMP (FEMA LE) AST (SGOT) 32.0 U/L 0.0-46 .0 Not Available [facility] [address] [facility], [place], [address], 06/11/2025 13:16:16 06/11/20 25 06/11/2025 CMP (FEMA LE) altv (SGPT) 15.0 U/L 13.0-6 9.0 normal Not Available [facility] [address] [facility], [place], [address], 06/11/2025 13:16:16 06/11/2006/11/2025 CMP (FEMA LE) A/G ratio 1.5 ratio Not Available [facility] [address] [facility], [place], [address], 06/11/2025 13:16:16 06/11/20 25 06/11/2025 CMP (FEMA LE) ALP phos 81.0 U/L 30.0-1 40.0 normal Not Available [facility] [address] [place] [address], [place], [address], 06/11/2025 13:16:16 06/11/2006/11/2025 CMP (FEMA LE) calcium 10.4 mg/dL 8.4-10 .5 Not Available [facility] [address] [facility] [place] [facility] 1, [place], [address], 06/11/2025 13:16:16 06/11/2006/11/2025 CMP (FEMA LE) sodium 142.0 mmol/ L 136.0- 145.0 Not Available [facility] [address] [facility] 1, [place], [address], 06/11/2025 13:16:16 06/11/2006/11/2025 CMP (FEMA LE) potassium 4.7 mmol/ L 3.5-5. 1 Not Available [facility] [address] [facility] 1, [place], [address], 06/11/2025 13:16:16 06/11/2006/11/2025 CMP (FEMA LE) chloride 106.0 mmol/ L 98.0-1 10.0 normal Not Available [facility] [address] [facility] [place] [facility] 1, [place], [address], 06/11/2025 13:16:16 06/11/2006/11/2025 CMP (FEMA LE) C02 27.0 mmol/ L 22.0-3 1.0 Not Available [facility] [address] [facility] [place] [facility] 1, [place], [address], 06/11/2025 13:16:16 06/11/2006/11/2025 CMP (FEMA LE) anion gap 9.0 calc Not Available [facility] [address] [place] [facility] 1, [place], [address], 06/11/2025 13:16:16 06/11/2006/11/2025 CMP (FEMA LE) osmolality 296.7 calc Not Available [facility] [address] [facility] 1, [place], [address], 06/11/2025 13:16:16 06/11/2006/12/2025 PTH, INTAC T (ICMA [...] stewart High Joie l or Low Terti nhnug High High Non-P juan j yroid Hyper calce micah Low or Low Joie l High Not Available [facility] [address] [address] [place], [address], 06/12/2025 15:27:52 06/11/2006/12/2025 PTH, INTAC T (ICMA ) AND IONIZ ED CALCI UM calcium 10.1 mg/dL 8.6-10 .4 normal Not Available [facility] [address] [address] [place], [address], 06/12/2025 15:27:52 06/11/2006/12/2025 PTH, INTAC T (ICMA ) AND IONIZ ED CALCI UM calcium, ionized 5.5 mg/dL 4.7-5. 5 normal Not Available [facility] [address] [address] [place], [address], 06/12/2025 15:27:52 06/11/20 25 06/12/2025 VITAM IN [...] /MS is recom gagan d: order code 81790 (vargas ents >2yrs ). See Note 1 Note 1 For addit ional infor surya mclean refer to http: //[facility] emma Bhakta gnost ics.c om/fa q/FAQ 199 (This link is being provi ded for infor sarika stroud/ educkarla osborne l purpo ses only. ) Not Available [facility] [address] [place], [address], 06/12/2025 15:27:54 06/24/20 25 06/24/2025 PT/IN R Protime 40.[address] [facility] ([facility] [address] [place] [address], [address], 06/24/2025 13:13:54 06/24/20 25 06/24/2025 PT/IN R INR 3.[address] [facility] ([facility]) [address] [place] [address], [address], 06/24/2025 13:13:54 07/02/20 25 07/02/2025 PT/IN R Protime 42.[address] [facility] ([facility]) [address] [place] [address], [address], 07/01/2025 10:25:07 07/02/20 25 07/02/2025 PT/IN R INR 3.[address] [facility] ([facility]) [address] [place] [address], [place], [address], 07/01/2025 10:25:07 08/05/2008/04/2025 XR, cervi luisito spine , 2 or 3 view No observ ation record ed. [facility] [address] [place], [address], 08/07/2025 13:25:55 08/05/2008/04/2025 XR, shoul vito, 2 or more view No observ ation record ed. [facility] [address] [place], [address], 08/07/2025 13:25:55 09/09/2009/08/2025 US, echoc ardio gram, trans thora cic, compl ete, w/ color flow No observ ation record ed. [facility] [address] [place], [address], 09/11/2025 09:19:21 09/15/2009/15/2025 MAMMO , scree ilya, digit al, bilat eral No observ ation record ed. [email or web address] [place] [address] [address] [place], [address], 09/16/2025 16:09:54 Result Notes None recorded. Problems Name Problem SNOMED Code Status Onset Date Resolution Date Notes Provider Name and Address Organization Details Recorded Time Depressi ve disorder 57977565 Completed 202010/14/2021 Depressi on - Status is Inactive ; 10/14/20 11:08AM by Maryellen Marmolejo PA-C, Annotati on/Adden dum; Promoted ; acuity set as *; FELISHA hamilton, [facility] 07:56:57 Herpes zoster 6260752 Completed 202201/02/2025 SHINGLES FELISHA hamilton [facility] 5 07:56:03 Dysthymi a 65376796 Active 2022 DEPRESSI ON WITH ANXIETY FELISHA hamilton, [facility] 5 07:55:28 Benign essentia l hyperten jovanni 7342673 Active 2022 FELISHA hamilton, [facility] 5 07:55:28 Gastroes ophageal reflux disease 489427814 Active 2022 FELISHA hamilton, [facility] 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 5 07:56:22 Atrial fibrilla tion 95503578 Active 2022 FELISHA hamilton, [facility] 3 14:45:05 Coronary atherosc lerosis 486947005 Active 2022 bare metal stents to circ and LAD 2011 FELISHA hamilton, [facility] 3 14:46:30 Iron deficien cy anemia 13777320 Active 2022 FELISHA hamilton [facility] 5 07:55:28 Hypothyr oidism 60773525 Active 2022 FELISHA hamilton [facility] 3 14:45:59 Anxiety 41506370 Active 2022 FELISHA hamilton [facility] 3 14:46:54 Viral hepatiti s C 28372016 Active 2022 FELISHA DESIR null, [facility] 5 07:55:28 Moderate recurren t major depressi on 61745004 Active 2023 FELISHA DESIR null, [facility] 5 07:55:28 Need for personal care assistan ce [id number] 722309 Active 2023 FELISHA DESIR null, [facility] 5 07:55:28 Frail elderly 802240759 Active 2023 FELISHA DESIR null, [facility] 5 07:55:28 Seasonal allergic rhinitis 033719941 Active 2023 FELISHA DESIR null, [facility] 5 07:55:28 Chronic pain 12064864 Active 2023 FELISHA hamilton, [facility] 5 07:55:28 Dementia 18290531 Active 2023 FELISHA DESIR null, [facility] 5 07:55:28 Constipa tion 29294086 Active 2023 FELISHA DESIR null, [facility] 5 07:55:44 Hyperlip idemia 94453527 Active 2024 FELISHA hamilton, [facility] 5 07:59:38 Occult blood detected in feces 97162125 Active 2024 FELISHA hamilton, [facility] 5 09:13:35 Mean corpuscu lar volume above referenc e range 039484742 Active 2024 FELISHA hamilton, [facility] 5 09:14:07 Hypercal cemia 17382900 Active 2024 FELISHAJAMIE DESIR alfonso, [facility] 5 10:07:49 Vitamin D deficien cy 06689575 Active 2024 Lyn Marmolejo MD [address] [place] [address], [phone], [facility] 5 12:54:55 Hyperpar athyroid ism 50047224 Active 2024 Lyn Marmolejo MD [address] [place] [address], [phone], [facility], Diane.L.CJosue 5 12:54:56 Dysuria 02536823 Active 2024 Dotty Celis alfonso, [facility] 5 14:08:08 Problem Notes None recorded. Procedures Surgical History Date Name Laterality Status Provider Name and Address Organization Details Recorded Time 2024 Most Recent Mammogram completed FELISHA DESIR [facility] 5 16:09:39 2024 esophagogastroduodenoscopy completed YANELIS DESIR [facility] 5 12:23:16 2024 colonoscopy completed FELISHA DESIR [facility] 5 10:20:11 2023 esophagogastroduodenoscopy completed KIARA DUCKWORTH [facility] 4 12:40:14 2023 colonoscopy completed Lyn Marmolejo MD [address] [place] [address], [phone], [facility] 5 10:19:30 cholecystectomy completed FELISHA [facility] 3 14:48:40 replacement of mitral valve complete d FELISHA [facility] 3 14:49:22 section completed FELISHA [facility] 3 15:14:43 Imaging Results None recorded. Procedure Notes None recorded. Medical Equipment None Reported. Allergies Allergen ID Allergen Name Allergen Category Reaction Reaction Severity Criticality Documentation Date Start Date Code Code System Note Provider Name and Address Organization Details Recorded Time 1376 morphine medicatio n Not available Not available Not available 02/07/2023 7052 RxNorm Dotty Celis [facility] 3 10:45:47 1377 diltiazem Not available Not available Not available Not available 02/07/2023 3443 RxNorm Dottylizzie Celis [facility] 3 10:45:54 4552 Bactrim medicatio n other severe high 04/17/2023 33374 9 RxNorm do not give d/t couma anh Lola Vidal [facility] 4 13:34:33 93775 diltiazem hydrochlo ride medicatio n Not available Not available Not available 05/26/2023 59629 1 RxNorm Comme nt: Recor ded 12/29 7:56A M by Yanelis Kitchen on, HIDE OR SKIN BUFFER, 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 ; Promo talib; Trey bernal ce: *; Reaso n: Drug aller gy; ; FELISHA DESIR [facility] 3 12:26:44 20687 morphine sulfate medicatio n Not available Not available Not available 05/26/2023 51348 RxNorm Comme nt: Recor ded 12/29 7:56A M by Yanelis Kitchen on, HIDE OR SKIN BUFFER, 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 ; Debra mayers; Trey bernal ce: *; Reaso n: Drug aller gy; ; FELISHA DESIR [facility] 12:26:48 Medications Name Sig Start Date Stop [...] THSC Levothyro xine Sodium daily 06/08 completed 17366; Recorded 01/09/20 6:06PM by Shirley Quevedo (Authori [...] height Body mass index (BMI) Body weight Oxygen saturation Heart rate Respiratory rate Body temperature Systolic And Diastolic Provider Name and Address Organization Details Last Updated DateTime 154.94 cm 28.3 kg/m2 19940.8 6 g 95 % 98 /min 18 /min 97.5 [degF] 133/73 mm[Hg] FELISHA DESIR [facility] 08:56:27 Social History Question Answer Notes LastModified by [email or web address] Details LastModified Time Tobacco Smoking Status Former Smoker FELISHA DESIR [facility] 04/17/2023 14:48:01 What Was The Date Of Your Most Recent Tobacco Screening? 05/27/2025 [email or web address] Information not available 05/27/2025 Sex: Unknown Functional Status Question Answer Note LastModified by [email or web address] Details LastModified Time Do you use any illicit or recreational drugs? No [email or web address] Information not available 04/17/2023 Do you or have you ever used any other forms of tobacco or nicotine? No [email or web address] Information not available 06/29/2023 What is your level of alcohol consumption? None [email or web address] Information not available 04/17/2023 Mental Status None recorded. Family History Relationship Description Onset Age of this Age Resolved Age Notes LastModified by Organization Details LastModified Time Unspecified Relation Coronary atherosclero sis Not available 06/29 15:13:48 Medical History No medical history recorded. Gynecological History Statement/Question Response Most Recent Mammogram 09/15/2025 Obstetrics History GPAL:G 0 P 0 0 0 0 Immunizations Vaccine Type Date Status Note Provider Nam e and Address Organization Details Recorded Time Influenza, MDCK, quadrivalent, PF 2 completed FELISHA DESIR null, [facility] 10/10/2024 08:38:58 COVID-19, mRNA, LNP-S, PF, 100 mcg/0.5mL dose or 50 mcg/0.25mL dose 1 [facility] 10/10/2024 08:38:58 COVID-19, mRNA, LNP-S, PF, 100 mcg/0.5mL dose or 50 mcg/0.25mL dose 1 completed [facility] 10/10/2024 08:38:58 COVID-19, mRNA, LNP-S, PF, 100 mcg/0.5mL dose or 50 mcg/0.25mL dose 2 [facility] 10/10/2024 08:38:58 Pneumococcal conjugate PCV20, polysaccharide NZR010 conjugate, adjuvant, PF 3 completed [facility] 10/10/2024 08:38:58 COVID-19, mRNA, LNP-S, bivalent, PF, 50 mcg/0.5 mL or 25mcg/0.25 mL dose 3 completed FELISHA DESIR [facility] 10/10/2024 08:38:58 pneumococcal polysaccharide PPV23 3 [facility] 04/17/2023 12:02:00 Tdap 1 completed FELISHA DESIR null, [facility] 10/10/2024 08:38:58 Influenza, split virus, trivalent, PF 3 completed FELISHA DESIR null, [facility] 04/17/2023 12:02:00 influenza, split (incl. purified surface antigen) 0 completed FELISHA DESIR null, [facility] 04/17/2023 12:02:00 Hep A, adult 1 completed FELISHA DESIR null, [facility] 10/10/2024 08:38:58 Hep A, adult 9 completed FELISHA DESIR null, [facility] 10/10/2024 08:38:58 Influenza, split virus, quadrivalent, PF 1 completed FELISHA DESIR null, [facility] 10/10/2024 08:38:58 Influenza, split virus, quadrivalent, PF 9 completed FELISHA DESIR null, [facility] 10/10/2024 08:38:58 Influenza, MDCK, trivalent, PF 4 completed FELISHA DESIR null, [facility] 10/10/2024 08:38:58 Influenza, MDCK, quadrivalent, preservative 3 completed FELISHA DESIR null, [facility] 10/10/2024 08:38:58 pneumococcal polysaccharide PPV23 8 completed Lola Vidal null, [facility] 07/02/2024 08:41:52 Influenza, split virus, quadrivalent, PF 8 completed Lola hamilton, [facility] 07/02/2024 08:41:52 zoster recombinant 3 completed Lola hamilton, [facility] 07/02/2024 14:52:40 COVID-19, mRNA, LNP-S, PF, 50 mcg/0.5 mL 4 completed FELISHA hamilton, [facility] 10/10/2024 08:38:58 Influenza, MDCK, trivalent, preservative 4 completed FELISHA hamilton [facility] LJosueLJosueCJosue 10/10/2024 08:38:58 Past Encounters Encounter ID Performer Location Encounter Start Date Encounter Closed Date Diagnosis/Indication Diagnosis SNOMED-CT Code Diagnosis ICD10 Code Diagnosis IMO Codes Diagnosis Note [id number] Lyn Marmolejo MD [facility]) [address] [place] [address] 5 06/05/2025 11:28:33 06/08/2025 12:35:39 Hypothyroidism 66907243 E03.9 Viral screening 71321043 4 Z11.59 1859134 Physical examination 588 0005 Z00.00 038170 Long-term current use of drug therapy 404132766 Z79.890 [id number] Lyn Marmolejo MD [facility]) [address] [place] [address] 5 06/11/2025 10:52:49 06/12/2025 12:43:36 Hypercalcemia 17190186 E83.52 [id number] Lyn Marmolejo MD [facility]) [address] [place] [address]955 5 06/24/2025 12:18:01 06/30/2025 13:41:59 Hyperparathyroidism 45773982 E21.3 02097 corrected and ionized calcium are normalgfr 52 and stable Vitamin D deficiency 347 61077 E55.9 23700 [id number] Lyn Marmolejo MD [facility] ([facility]) [address] [place] [address]130 5 07/01/2025 10:24:23 07/02/2025 11:29:38 Atrial fibrillation 85233959 I48.91 warfarin therapy [id number] Lyn Marmolejo MD [facility] ([facility]) [address] [place] [address] 07/03/2025 08:14:55 07/13/2025 10:06:37 Benign essential hypertension 2322537 I10 Coronary atherosclerosis 127993937 I25.119 Atrial fibrillation 4943 6004 I48.91 warfarin therapyd/c naproxen d/t hx of bleeding Hyperlipidemia 18673292 E78.00 Hypothyroidism 32652119 E03.9 Hyperparathyroidism 6699 9008 E21.3 64369 Health Concerns Section Related Observation LastModified by Organization Detai ls LastModified Time None Recorded Concern Status LastModified by Organization Details LastModified Time None Recorded Payers Encounter Date Sequence Insurance Name Policy Number Policy Hernandez Covered Member ID Hernandez Member ID Guarantor Name 07/03/2025 1 [place]ANT[place] - [place]PO) [id number] Odilia Ulloa [id number] Odilia Ulloa 07/03/2025 2 [place] Odilia Ulloa [id number] Odilia Ulloa Notes Date Note Type Note Provider Name and Address Organization Details Recorded Time 5 text/html DiabetesReported by PatientHPIFor duration, patient reportschronic. For control, patient reportsusually well controlled,hemoglobin a1c has been less than 7 (5.6), andhemoglobin a1c goal is less than 7. For compliance, patient reportscompliant with medicationsandcompliant with follow-up visits. Hypertension IM/FMReported by PatientHPIFor severity, patient reportsnormal (<120/<80 mmhg). For duration, patient reportshtn present for ___ years. For onset/timing, patient reportsgradual onset. For self care, patient reportsnon-smoker. HypothyroidReported by PatientHPIFor duration, patient reports>12 months. For treatment, patient reportstaking medication as prescribedandlast tsh level: 2.02.ROS as noted in the HPI Patient seen today by Dr. Marmolejo at [facility] Lyn Marmolejo MD [address] [place], [address], [facility], [place] 07/08/2025 21:05:35 OBGyn Episode No OBEpisode recorded.
--- OUTSIDE RECORDS SUMMARY | 2025-09-19 05:39 | XMS_ITS | Continuity of Care Document ---
Author Organization DAI Haas [facility], [place], [facility] ([facility]) Address [address] [place] [address] Care Team Providers Care Transformation Analyst Name Role Phone LYN MARMOLEJO Primary Care Provider [phone] Assessment No assessment recorded. Plan of Treatment Reminders Order Date Submit Date Provider Last Modified By Organization Details Last Modified Time Details Appointments None record ed. Lab PT/INR 025 08/07/20 [facility]), [address] [place], [address], 11:56:37 Referral None record ed. Procedures None record ed. Surgeries None record ed. Imaging None record ed. Medication Orders None record ed. Patient TargetsNo targets recorded. Patient InstructionsNo instructions recorded. Reason for Referral None Reported. Results Created Date Observation Date Name Description Value Unit Range Abnormal Flag Note LastModifiedBy Organization Detail LastModifiedTime 07/09/2007/09/2025 PT/IN R Protime 34.6 Not Available [facility]) [address] [place], [address], 07/09/2025 13:44:17 07/09/20 25 07/09/2025 PT/IN R INR 2.9 Not Available [facility] ([facility]) [address] [place], [address], 07/09/2025 13:44:17 09/1607/14/2025 URINA LYSIS WITH MICRO color YELLOW Not Available [facility] [address], [place], [address], 07/14/2025 14:52:32 07/14/20 25 07/14/2025 URINA LYSIS WITH MICRO clarity CLEAR Not Available [facility] [address], [place], [address], 07/14/2025 14:52:32 07/14/2007/14/2025 URINA LYSIS WITH MICRO glu NEGATI VE Not Available [facility] [address], [place], [address], 07/14/2025 14:52:32 07/14/20 25 07/14/2025 URINA LYSIS WITH MICRO bili NEGATI VE Not Available [facility] [address], [place], [address], 07/14/2025 14:52:32 07/14/20 25 07/14/2025 URINA LYSIS WITH MICRO ket NEGATI VE Not Available [facility] [address], [place], [address], 07/14/2025 14:52:32 07/14/20 25 07/14/2025 URINA LYSIS WITH MICRO S.g 1.010 1.005- 1.025 Not Available [facility] [address], [place], [address], 07/14/2025 14:52:32 07/14/20 25 07/14/2025 URINA LYSIS WITH MICRO pH 5.0 5.0-7. 0 Not Available [facility] [address], [place], [address], 07/14/2025 14:52:32 07/14/20 25 07/14/2025 URINA LYSIS WITH MICRO pro NEGATI VE Not Available [facility] [address], [place], [address], 07/14/2025 14:52:32 07/14/20 25 07/14/2025 URINA LYSIS WITH MICRO uro 0.2 E.U./D L Not Available [facility] [address], [place], [address], 07/14/2025 14:52:32 07/14/20 25 07/14/2025 URINA LYSIS WITH MICRO nit NEGATI VE Not Available [facility] [address], [place], [address], 07/14/2025 14:52:32 07/14/20 25 07/14/2025 URINA LYSIS WITH MICRO blo NEGATI VE Not Available [facility] [address], [place], [address], 07/14/2025 14:52:32 07/14/20 25 07/14/2025 URINA LYSIS WITH MICRO jose elias NEGATI VE Not Available [facility] [address], [place], [address], 07/14/2025 14:52:32 07/14/20 25 07/14/2025 URINA LYSIS WITH MICRO WBC 0-1 abnormal Not Available [facility] [address], [place], [address], 07/14/2025 14:52:32 07/14/20 25 07/14/2025 URINA LYSIS WITH MICRO RBC NEGATI VE Not Available [facility] [address], [place], [address], 07/14/2025 14:52:32 07/14/20 25 07/14/2025 URINA LYSIS WITH MICRO epi cells 1-2 abnormal Not Available [facility] [address], [place], [address], 07/14/2025 14:52:32 07/14/20 25 07/14/2025 URINA LYSIS WITH MICRO bacteria 1-2 HYALIN E CAST abnormal Not Available [facility] [address] [facility] [address], [place], [address], 07/14/2025 14:52:32 07/14/20 25 07/14/2025 URINA LYSIS WITH MICRO other NEG Not Available [facility] [address], [place], [address], 07/14/2025 14:52:32 07/14/2007/16/2025 CULTU RE, URINE , ROUTI NE culture, urine, routine SEE NOTE CULTU RE, URINE , ROUTI NE Micro Numbe r: [id number] Test Statu s: Final Speci men Sourc e: Urine Speci men Quali ty: Adequ ate Resul t: No Growt h Not Available [facility] [address] [place], [address], 07/16/2025 02:51:13 07/17/2007/17/2025 PT/IN R Protime 34.4 Not Available [facility] ([facility]) [address] [place], [address], 07/16/2025 12:07:15 07/17/2007/17/2025 PT/IN R INR 2.9 Not Available [facility] ([facility]) [address] [place], [address], 07/16/2025 12:07:15 07/23/2007/23/2025 PT/IN R Protime 47.0 Not Available [facility] ([facility]) [address] [place], [address], 07/23/2025 11:36:06 07/23/2007/23/2025 PT/IN R INR 3.9 Not Available [facility]) [address] [place], [address], 07/23/2025 11:36:06 07/30/2007/30/2025 PT/IN R Protime 30.2 Not Available [facility] ([facility]) [address] [place], [address], 07/30/2025 11:33:15 07/30/2007/30/2025 PT/IN R INR 2.5 Not Available [facility] ([facility]) [address] [place], [address], 07/30/2025 11:33:15 08/07/2008/07/2025 PT/IN R Protime 26.3 Not Available [facility] ([facility]) [address] [place], [address], 08/07/2025 11:40:14 08/07/2008/07/2025 PT/IN R INR 2.2 Not Available [facility] ([facility]) [address] [place], [address], 08/07/2025 11:40:14 08/05/2008/04/2025 XR, cervi luisito spine , 2 or 3 view No observ ation record ed. [facility] [address] [place], [address], 08/07/2025 13:25:55 08/05/2008/04/2025 XR, shoul vito, 2 or more view No observ ation record ed. [facility] [address] [place], [address], 08/07/2025 13:25:55 09/09/20 25 09/08/2025 US, echoc ardio gram, trans thora cic, compl ete, w/ color flow No observ ation record ed. QUENTIN [facility] [address] [place], [address], 09/11/2025 09:19:21 09/15/2009/15/2025 MAMMO , scree ilya, digit al, bilat eral No observ ation record ed. jordy [facility] [address] [place], [address], 09/16/2025 16:09:54 Result Notes None recorded. Problems Name Problem SNOMED Code Status Onset Date Resolution Date Notes Provider Name and Address Organization Details Recorded Time Depressi ve disorder 29320810 Completed 202010/14/2021 Depressi on - Status is Inactive ; 10/14/20 11:08AM by Maryellen Marmolejo PA-C, Annotati on/Adden dum; Promoted ; acuity set as *; FELISHA hamilton [facility] 5 07:56:57 Herpes zoster 2137964 Completed 202201/02/2025 SHINGLES FELISHA hamilton, [facility] 5 07:56:03 Dysthymi a 33106052 Active 2022 DEPRESSI ON WITH ANXIETY FELISHA hamilton [facility] 5 07:55:28 Benign essentia l hyperten jovanni 6224431 Active 2022 FELISHA hamilton [facility] 5 07:55:28 Gastroes ophageal reflux disease 708259430 Active 2022 FELISHA hamilton [facility] 5 07:55:28 Fracture of upper end of humerus 102459439 Completed 202201/02/2025 CLOSED FRACTURE OF PROXIMAL END OF RIGHT HUMERUS, SEQUELA FELISHA hamilton, [facility] 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 5 07:56:22 Atrial fibrilla tion 27164792 Active 2022 FELISHA hamilton, [facility] 3 14:45:05 Coronary atherosc lerosis 546674787 Active 2022 bare metal stents to circ and LAD 2011 FELISHA hamilton, [facility] 3 14:46:30 Iron deficien cy anemia 06033561 Active 2022 FELISHA hamilton, [facility] 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 14:45:59 Anxiety 63544675 [facility] 20[facility] 14:46:54 Viral hepatiti s C 29980229 Active 2022 FELISHA hamilton, [facility] 5 07:55:28 Moderate recurren t major depressi on 63914656 Active 2023 FELISHA hamilton, [facility] 5 07:55:28 Need for personal care assistan ce 70523082235 751745 Active 2023 FELISHA hamilton [facility] 5 07:55:28 Frail elderly 543267676 Active 2023 FELISHA DESIR null, [facility] 5 07:55:28 Seasonal allergic rhinitis 913278146 Active 2023 FELISHA DESIR null, [facility] 5 07:55:28 Chronic pain 05186251 Active 2023 FELISHA DESIR null, [facility] 5 07:55:28 Dementia 55977269 Active 2023 FELISHA DESIR null, [facility] 5 07:55:28 Constipa tion 86290858 Active 2023 FELISHA DESIR null, [facility] 5 07:55:44 Hyperlip idemia 32103348 Active 2024 FELISHA DESIR null, [facility] 5 07:59:38 Occult blood detected in feces 29281819 Active 2024 FELISHA DESIR null, [facility] 5 09:13:35 Mean corpuscu lar volume above referenc e range 560771500 Active 2024 FELISHA DESIR null, [facility] 5 09:14:07 Hypercal cemia 82699938 Active 2024 FELISHA DESIR null, [facility] 5 10:07:49 Vitamin D deficien cy 69372467 Active 2024 Lyn Marmolejo MD [address] [place] [address], [address], [facility] 5 12:54:55 Hyperpar athyroid ism 14028161 Active 2024 Lyn Marmolejo MD [address] [place], [address], [facility], ClariceLJosueCJosue 5 12:54:56 Dysuria 43202260 Active 2024 Dotty Celis null, [facility] 5 14:08:08 Problem Notes None recorded. Procedures Surgical History Date Name Laterality Status Provider Name and Address Organization Details Recorded Time 2024 Most Recent Mammogram completed FELISHA DESIR [facility] 5 16:09:39 2024 esophagogastroduodenoscopy completed YANELIS WELSH [facility] 5 12:23:16 2024 colonoscopy completed FELISHA [facility] 5 10:20:11 2023 esophagogastroduodenoscopy completed KIARA DUCKWORTH [facility] 4 12:40:14 2023 colonoscopy completed Lyn Marmolejo MD [address] [place], [address], [facility] 5 10:19:30 cholecystectomy completed FELISHA [facility] 3 14:48:40 replacement of mitral valve complete d FELISHA [facility] 3 14:49:22 [facility] 15:14:43 Imaging Results None recorded. Procedure Notes None recorded. Medical Equipment None Reported. Allergies Allergen ID Allergen Name Allergen Category Reaction Reaction Severity Criticality Documentation Date Start Date Code Code System Note Provider Name and Address Organization Details Recorded Time 1376 morphine medicatio n Not available Not available Not available 02/07/2023 7052 RxNorm Dotty Celis [facility] 3 10:45:47 1377 diltiazem Not available Not available Not available Not available 02/07/2023 3443 RxNorm Dotty Sharmaoch [facility] 3 10:45:54 4552 Bactrim medicatio n other severe high 04/17/2023 18722 9 RxNorm do not give d/t couma din Lola Marcy [facility] 4 13:34:33 06733 diltiazem hydrochlo ride medicatio n Not available Not available Not available 05/26/202310960 1 RxNorm Comme nt: Recor ded 12/29 7:56A M by Yanelis Kitchen on, [employer] SALES REPRESENTATIVE, 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 ; Promo talib; Signi fican ce: *; Reaso n: Drug aller gy; ; [facility] 3 12:26:44 56132 morphine sulfate medicatio n Not available Not available Not available 05/26/2023 49389 RxNorm Comme nt: Recor ded 12/29 7:56A M by Yanelis Kitchen on, [employer] SALES REPRESENTATIVE, 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 ; Promo talib; Signi fican ce: *; Reaso n: Drug aller gy; ; [facility] 3 12:26:48 Medications Name Sig Start [...] 22 2:38PM by Felisha Desir LPN (Authori zed through [...] [facility] Levothyro xine Sodium daily 06/08 completed 17670; Recorded 01/09/20 6:06PM by Shirley Quevedo (Authori [...] Time Tobacco Smoking Status Former Smoker FELISHA hamilton [facility] 04/17/2023 14:48:01 What Was The Date Of Your Most Recent Tobacco Screening? 05/27/2025 [email or web address] Information not available 05/27/2025 Sex: Unknown Functional Status Question Answer Note LastModified by Organizat ion Details LastModified Time Do you use any illicit or recreational drugs? No [email or web address] Information not available 04/17/2023 Do you or have you ever used any other forms of tobacco or nicotine? No [email or web address] Information not available 06/29/2023 What is your level of alcohol consumption? None [email or web address] Information not available 04/17/2023 Mental Status None recorded. Family History Relationship Description Onset Age of this Age Resolved Age Notes LastModified by Organization Details LastModified Time Unspecified Relation Coronary atherosclero sis [email or web address] Not available 06/29 15:13:48 Medical History No medical history recorded. Gynecological History Statement/Question Response Most Recent Mammogram 09/15/2025 Obstetrics History GPAL:G 0 P 0 0 0 0 Immunizations Vaccine Type Date Status Note Provider Nam e and Address Organization Details Recorded Time Influenza, MDCK, quadrivalent, PF 2 completed FELISHA hamilton [facility] 10/10/2024 08:38:58 COVID-19, mRNA, LNP-S, PF, 100 mcg/0.5mL dose or 50 mcg/0.25mL dose 1 completed FELISHA hamilton [facility] 10/10/2024 08:38:58 COVID-19, mRNA, LNP-S, PF, 100 mcg/0.5mL dose or 50 mcg/0.25mL dose 1 completed FELISHA hamilton [facility] 10/10/2024 08:38:58 COVID-19, mRNA, LNP-S, PF, 100 mcg/0.5mL dose or 50 mcg/0.25mL dose 2 completed FELISHA hamilton, [facility] 10/10/2024 08:38:58 Pneumococcal conjugate PCV20, polysaccharide MQX000 conjugate, adjuvant, PF 3 completed FELISHA hamilton, [facility] 10/10/2024 08:38:58 COVID-19, mRNA, LNP-S, bivalent, PF, 50 mcg/0.5 mL or 25mcg/0.25 mL dose 3 [facility] 10/10/2024 08:38:58 pneumococcal polysaccharide PPV23 3 completed [facility] 04/17/2023 12:02:00 Tdap 1 completed [facility] 10/10/2024 08:38:58 Influenza, split virus, trivalent, PF 3 completed [facility] 04/17/2023 12:02:00 influenza, split (incl. purified surface antigen) 0 completed FELISHA hamilton, [facility] 04/17/2023 12:02:00 Hep A, adult 1 completed FELISHA hamilton, [facility] 10/10/2024 08:38:58 Hep A, adult 9 [facility] 10/10/2024 08:38:58 Influenza, split virus, quadrivalent, PF 1 completed [facility] 10/10/2024 08:38:58 Influenza, split virus, quadrivalent, PF 9 completed FELISHA DESIR null, [facility] 10/10/2024 08:38:58 Influenza, MDCK, trivalent, PF 4 completed FELISHA DESIR null, [facility] 10/10/2024 08:38:58 Influenza, MDCK, quadrivalent, preservative 3 completed FELISHA DESIR null, [facility] 10/10/2024 08:38:58 pneumococcal polysaccharide PPV23 8 completed Lola hamilton, [facility] 07/02/2024 08:41:52 Influenza, split virus, quadrivalent, PF 8 completed Lola hamilton, [facility] 07/02/2024 08:41:52 zoster recombinant 3 completed Lola hamilton, [facility] 07/02/2024 14:52:40 COVID-19, mRNA, LNP-S, PF, 50 mcg/0.5 mL 4 completed FELISHA hamilton, [facility] 10/10/2024 08:38:58 Influenza, MDCK, trivalent, preservative 4 completed FELISHA DESIR null, [facility] 10/10/2024 08:38:58 Past Encounters Encounter ID Performer Location Encounter Start Date Encounter Closed Date Diagnosis/Indication Diagnosis SNOMED-CT Code Diagnosis ICD10 Code Diagnosis IMO Codes Diagnosis Note [id number] Lyn Marmolejo MD [facility] ([facility]) [address] [place] [address] 07/09/2025 13:42:58 07/10/2025 14:24:59 Atrial fibrillation 86352986 I48.91 warfarin therapyd/c naproxen d/t hx of bleeding [id number] Lyn Marmolejo MD [facility] ([facility]) [address] [place], [place] [address] 07/14/2025 13:52:08 07/15/2025 10:22:44 Dysuria 37400547 R30.0 54677 will call with ua results [id number] Lyn Marmolejo MD [facility] ([facility]) [address] [place], [place] [address] 07/16/2025 12:05:46 07/17/2025 11:01:38 Atrial fibrillation 58707504 I48.91 warfarin therapyd/c naproxen d/t hx of bleeding [id number] Lyn Marmolejo MD [facility] ([facility]) [address] [place], [place] [address] 07/23/2025 11:35:38 07/24/2025 12:08:17 Atrial fibrillation 04824324 I48.91 warfarin therapyd/c naproxen d/t hx of bleeding [id number] Lyn Marmolejo MD [facility] ([facility]) [address] [place], [place] [address] 07/30/2025 11:32:37 07/31/2025 09:44:15 History of mechanical prosthetic mitral valve replacement 923678712 Z95.2 [id number] Lyn M[address]jo MD [facility] ([facility]) [address] [place], [place] [address] 08/04/2025 10:06:02 08/04/2025 15:14:44 Right cervical root neuropathy 5222570053 2665387 M54.12 42724139 Pain of ri t shoulder region 4873763447 M25.511 90802266 [id number] Lyn Marmolejo MD [facility] ([facility]) [address] [place], [place] [address] 08/07/2025 11:39:45 08/10/2025 10:28:08 Atrial fibrillation 18772437 I48.91 warfarin therapyd/c naproxen d/t hx of bleeding Health Concerns Section Related Observation LastModified by Organization Detai ls LastModified Time None Recorded Concern Status LastModified by Organization Details LastModified Time None Recorded Payers Encounter Date Sequence Insurance Name Policy Number Policy Hernandez Covered Member ID Hernandez Member ID Guarantor Name 08/07/2025 1 [place] - [place]PO) [id number] Odilia Ulloa [id number] Odilia Ulloa 08/07/2025 2 [place] Odilia Ulloa [id number] Odilia Ulloa OBGyn Episode No OBEpisode recorded.
--- OUTSIDE RECORDS SUMMARY | 2025-09-19 05:39 | XMS_ITS | Encounter Summary ---
Author Organization [facility] Address [address] [place] [address] Care Team Providers Care Messenger Office Name Role Phone Rico Muñiz MD, Sharan Jaime Primary Care Provider Encounter Details Date Type Department Care Team (Latest Contact Info) Description 11/04/1998 Outpatient Historical [facility] Sharan Gómez Jr., MD [address] [place] [address] Acute upper respiratory infections of unspecified site (Primary Dx); Screening for other and unspecified respiratory condition; Other dyspnea and respiratory abnormality; care home (current) use of anticoagulants Social History Tobacco Use Types Packs/Day Years Used Date Smoking Tobacco: Never Assessed Comments Unknown Sex and Gender Information Value Date Recorded Sex Assigned at Not on file 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 Gender Identity Not on file Sexual Orientation Not on file documented as of this encounter Plan of Treatment Not on file documented as of this encounter Visit Diagnoses Diagnosis Acute upper respiratory infections of unspecified site- Primary Screening for other and unspecified respiratory condition Other dyspnea and respiratory abnormality care home (current) use of anticoagulants Long-term (current) use of anticoagulants documented in this encounter Care Teams Messenger Office Relationship Specialty Start Date End Date Sharan Gómez Jr., MD [address] [place] [address] PCP - General 08/10/05 documented as of this encounter
--- OUTSIDE RECORDS SUMMARY | 2025-09-19 05:39 | XMS_ITS | Encounter Summary ---
Author Organization [facility] Address [address] [place] [address] Care Team Providers Care National Service Officer Name Role Phone Rico Muñiz MD, Sharan Jaime Primary Care Provider Encounter Details Date Type Department Care Team (Latest Contact Info) Description 11/05/2003 Outpatient Historical [facility] 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
--- OUTSIDE RECORDS SUMMARY | 2025-09-19 05:39 | XMS_ITS | Encounter Summary ---
Author Organization [facility] Address [address] [facility] Attn: [place] [address] Care Team Providers Care Panel Machine Setter Name Role Phone Rico Muñiz MD, Sharan Jaime Primary Care Provider Encounter Details Date Type Department Care Team (Late st Contact Info) Description 07/23/2002 Outpatient Historical Екатерина Malone MD [address] [place] [phone] Social History Tobacco Use Types Packs/Day Years Used Date Smoking Tobacco: Never Assessed Comments Unknown Sex and Gender Information Value Date Recorded Sex Assigned at Not on file 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
--- OUTSIDE RECORDS SUMMARY | 2025-09-19 05:39 | XMS_ITS | Encounter Summary ---
Author Organization [facility] Address [address] [place] [address] Care Team Providers Care Clinical Services Specialist Name Role Phone Rico Muñiz MD, Sharan Jaime Primary Care Provider Encounter Details Date Type Department Care Team (Latest Contact Info) Description 11/05/2006 Outpatient Historical [facility] Int Luis AFaisal Lopez [place] [place] [phone] Serge Arrington MD [address] [place] [address] Mitral Valve Disorder (Primary Dx); Unspecified Essential Hypertension; Other and Unspecified Hyperlipidemia Social History Tobacco Use Types Packs/Day Years Used Date Smoking Tobacco: Never Assessed Comments Unknown Sex and Gender Information Value Date Recorded Sex Assigned at Not on file 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
--- OUTSIDE RECORDS SUMMARY | 2025-09-19 05:39 | XMS_ITS | Encounter Summary ---
Author Organization [facility] Address [address] [place] [address] Care Team Providers Care Companion Name Role Phone Rico Muñiz MD, Sharan Jaime Primary Care Provider Encounter Details Date Type Department Care Team (Latest Contact Info) Description 08/06/2006 Outpatient Historical [facility] Int Luis AFaisal Lopez [place] [place] [phone] Serge Arrington MD [address] [place] [address] Routine Gynecological Examination (Primary Dx) Social History Tobacco Use Types Packs/Day Years Used Date Smoking Tobacco: Never Assessed Comments Unknown Sex and Gender Information Value Date Recorded Sex Assigned at Not on file 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
--- OUTSIDE RECORDS SUMMARY | 2025-09-19 05:39 | XMS_ITS | Encounter Summary ---
Author Organization [facility] Address [address] [facility] Attn: [place] [address] Care Team Providers Care Senior Payroll Specialist Name Role Phone Rico Muñiz MD, Sharan Jaime Primary Care Provider Encounter Details Date Type Department Care Team (Late st Contact Info) Description 07/03/2002 Outpatient Historical Екатерина Malone MD [address] [place] [phone] Social History Tobacco Use Types Packs/Day Years Used Date Smoking Tobacco: Never Assessed Comments Unknown Sex and Gender Information Value Date Recorded Sex Assigned at Not on file 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
--- OUTSIDE RECORDS SUMMARY | 2025-09-19 05:39 | XMS_ITS | Encounter Summary ---
Author Organization [facility] Address [address] [place] [address] Care Team Providers Care Environmental Monitoring Specialist Name Role Phone Rico Muñiz MD, Sharan Jaime Primary Care Provider Encounter Details Date Type Department Care Team (Latest Contact Info) Description 07/04/2005 Outpatient Historical [facility] [place] [place] [phone] Serge Arrington MD [address] [place] [address] ROUTINE CASTING OPERATOR EXAMINATION (Primary Dx) Social History Tobacco Use Types Packs/Day Years Used Date Smoking Tobacco: Never Assessed Comments Unknown Sex and Gender Information Value Date Recorded Sex Assigned at Not on file Legal Sex Female 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
--- OUTSIDE RECORDS SUMMARY | 2025-09-19 05:39 | XMS_ITS | Encounter Summary ---
Author Organization [facility] Address [address] [place] [address] Care Team Providers Care Clearance Rep Name Role Phone Rico Muñiz MD, Sharan Jaime Primary Care Provider Encounter Details Date Type Department Care Team (Latest Contact Info) Description 07/06/2003 Outpatient Historical [facility] 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
--- OUTSIDE RECORDS SUMMARY | 2025-09-19 05:39 | XMS_ITS | Encounter Summary ---
Author Organization [facility] Address [address] [place] [address] Care Team Providers Care Rehab/Pre Vocational Counselor Name Role Phone Rico Muñiz MD, Sharan Jaime Primary Care Provider Encounter Details Date Type Department Care Team (Latest Contact Info) Description 06/26/2003 Outpatient Historical [facility] [place] [address] [place] [address] Serge Arrington MD [address] [place] [address] HYPERTENSION NOS (Primary Dx); Routine medical exam Social History Tobacco Use Types Packs/Day Years Used Date Smoking Tobacco: Never Assessed Comments Unknown Sex and Gender Information Value Date Recorded Sex Assigned at Not on file Legal 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
--- OUTSIDE RECORDS SUMMARY | 2025-09-19 05:39 | XMS_ITS | Continuity of Care Document ---
Author Organization DAI [facility] Luis M, Keenan, [facility] ([facility]) Address [address] [place] [address] Care Team Providers Care Supervisor Wet Room Name Role Phone LYN MARMOLEJO Primary Care Provider Assessment No assessment recorded. Plan of Treatment Reminders Order Date Submit Date Provider Last Modified By Organization Details Last Modified Time Details Appointments None record ed. Lab PT/INR 025 07/09/20 [facility] ([facility]), [address] [place], [address], 13:51:09 Referral None record ed. Procedures None record ed. Surgeries None record ed. Imaging None record ed. Medication Orders None record ed. Patient TargetsNo targets recorded. Patient InstructionsNo instructions recorded. Reason for Referral None Reported. Results Created Date Observation Date Name Description Value Unit Range Abnormal Flag Note LastModifiedBy Organization Detail LastModifiedTime 06/11/2006/11/2025 CMP (FEMA LE) glucose 88.0 mg/dL 60.0-9 9.0 Not Available [facility] [address], [place], [address], 06/11/2025 13:16:16 06/11/2006/11/2025 CMP (FEMA LE) BUN (blood urea nitrogen) 25.0 mg/dL 10.0-2 6.0 Not Available [facility] [address], [place], [address], 06/11/2025 13:16:16 06/11/20 25 06/11/2025 CMP (FEMA LE) creatinine (serum) 1.1 mg/dL 0.4-1. 5 Not Available [facility] [address] [facility] [address], [place], [address], 06/11/2025 13:16:16 06/11/20 25 06/11/2025 CMP (FEMA LE) BUN/creatini ne ratio 22.73 ratio Not Available [facility] [address] [facility] [address], [place], [address], 06/11/2025 13:16:16 06/11/20 25 06/11/2025 CMP (FEMA LE) eGFR calculated 51.5 Not Available [facility] [address] [facility] [address], [place], [address], 06/11/2025 13:16:16 06/11/20 25 06/11/2025 CMP (FEMA LE) total protein 7.7 g/dL 6.0-8. 5 Not Available [facility] [address] [facility] [address], [place], [address], 06/11/2025 13:16:16 06/11/20 25 06/11/2025 CMP (FEMA LE) total bilirubin 0.9 mg/dL 0.2-1. 3 Not Available [facility] [address] [facility] [address], [place], [address], 06/11/2025 13:16:16 06/11/20 25 06/11/2025 CMP (FEMA LE) albumin 4.6 g/dL 3.5-5. 5 Not Available [facility] [address] [facility] [address], [place], [address], 06/11/2025 13:16:16 06/11/20 25 06/11/2025 CMP (FEMA LE) globulin 3.1 calc Not Available [facility] [address] [facility], [place], [address], 06/11/2025 13:16:16 06/11/20 25 06/11/2025 CMP (FEMA LE) AST (SGOT) 32.0 U/L 0.0-46 .0 Not Available [facility] [address] [facility], [place], [address], 06/11/2025 13:16:16 06/11/20 25 06/11/2025 CMP (FEMA LE) altv (SGPT) 15.0 U/L 13.0-6 9.0 normal Not Available [facility] [address] [facility], [place], [address], 06/11/2025 13:16:16 06/11/20 25 06/11/2025 CMP (FEMA LE) A/G ratio 1.5 ratio Not Available [facility] [address] [facility] [address], [place], [address], 06/11/2025 13:16:16 06/11/20 25 06/11/2025 CMP (FEMA LE) ALP phos 81.0 U/L 30.0-1 40.0 normal Not Available [facility] [address] [facility] [address], [place], [address], 06/11/2025 13:16:16 06/11/20 25 06/11/2025 CMP (FEMA LE) calcium 10.4 mg/dL 8.4-10 .5 Not Available [facility] [address] [facility] [address], [place], [address], 06/11/2025 13:16:16 06/11/20 25 06/11/2025 CMP (FEMA LE) sodium 142.0 mmol/ L 136.0- 145.0 Not Available [facility] [address] [facility] [address], [place], [address], 06/11/2025 13:16:16 06/11/2006/11/2025 CMP (FEMA LE) potassium 4.7 mmol/ L 3.5-5. 1 Not Available [facility] [address] [facility] [address], [place], [address], 06/11/2025 13:16:16 06/11/2006/11/2025 CMP (FEMA LE) chloride 106.0 mmol/ L 98.0-1 10.0 normal Not Available [facility] [address] [facility] [address], [place], [address], 06/11/2025 13:16:16 06/11/2006/11/2025 CMP (FEMA LE) C02 27.0 mmol/ L 22.0-3 1.0 Not Available [facility] [address] [facility] [address], [place], [address], 06/11/2025 13:16:16 06/11/2006/11/2025 CMP (FEMA LE) anion gap 9.0 calc Not Available [facility] [address] [facility] [address], [place], [address], 06/11/2025 13:16:16 06/11/2006/11/2025 CMP (FEMA LE) osmolality 296.7 calc Not Available [facility] [address] [facility] [address], [place], [address], 06/11/2025 13:16:16 06/11/2006/12/2025 PTH, INTAC T (ICMA [...] or Low Joie l High Not Available [facility] [place] [address] [place], [address], 06/12/2025 15:27:52 06/11/20 25 06/12/2025 PTH, INTAC T (ICMA ) AND IONIZ ED CALCI UM calcium 10.1 mg/dL 8.6-10 .4 normal Not Available [facility] [place] [address] [place], [address], 06/12/2025 15:27:52 06/11/2006/12/2025 PTH, INTAC T (ICMA ) AND IONIZ ED CALCI UM calcium, ionized 5.5 mg/dL 4.7-5. 5 normal Not Available [facility] [place] [address] [place], [address], 06/12/2025 15:27:52 06/11/2006/12/2025 VITAM IN D,25- OH,TO DARRELL,I A vitamin [...] /MS is recom gagan d: order code 54052 (vargas ents >2yrs ). See Note 1 Note 1 For addit ional infor surya mclean e refer to http: //blayne Bhakta gnost ics.c om/fa q/FAQ 199 (This link is being provi ded for chemo stroud/ connor arenaso ses only. ) Not Available [facility] [address] [place], [address], 06/12/2025 15:27:54 06/24/20 25 06/24/2025 PT/IN R Protime 40.9 Not Available [facility]) [address] [place], [address], 06/24/2025 13:13:54 06/24/20 25 06/24/2025 PT/IN R INR 3.4 Not Available [facility] ([facility]) [address] [place] [address], [address], 06/24/2025 13:13:54 07/02/20 25 07/02/2025 PT/IN R Protime 42.3 Not Available [facility] ([facility]) [address] [place], [address], 07/01/2025 10:25:07 07/02/20 25 07/02/2025 PT/IN R INR 3.5 Not Available [facility] ([facility]) [address] [place], [address], 07/01/2025 10:25:07 07/06/20 25 07/06/2025 PT/IN R Protime 39.5 Not Available [facility] ([facility]) [address] [place], [address], 07/06/2025 11:23:26 07/06/20 25 07/06/2025 PT/IN R INR 3.3 Not Available [facility] ([facility]) [address] [place], [address], 07/06/2025 11:23:26 07/09/2007/09/2025 PT/IN R Protime 34.6 Not Available [facility] ([facility]) [address] [place], [address], 07/09/2025 13:44:17 07/09/20 25 07/09/2025 PT/IN R INR 2.9 Not Available [facility] ([facility]) [address] [place], [address], 07/09/2025 13:44:17 08/05/20 25 08/04/2025 XR, cervi luisito spine , 2 or 3 view No observ ation record ed. [facility] [address] [place], [address], 08/07/2025 13:25:55 08/05/20 25 08/04/2025 XR, shoul vito, 2 or more view No observ ation record ed. [facility] [address] [place], [address], 08/07/2025 13:25:55 09/09/20 25 09/08/2025 US, echoc ardio gram, trans thora cic, compl ete, w/ color flow No observ ation record ed. [facility] [address] [place], [address], 09/11/2025 09:19:21 09/15/2009/15/2025 MAMMO , scree ilya, digit al, bilat eral No observ ation record ed. [address] [place], [address], 09/16/2025 16:09:54 Result Notes None recorded. Problems Name Problem SNOMED Code Status Onset Date Resolution Date Notes Provider Name and Address Organization Details Recorded Time Depressi ve disorder 65251421 Completed 202010/14/2021 Depressi on - Status is Inactive ; 10/14/20 11:08AM by Maryellen Marmolejo PA-C, Annotati on/Adden dum; Promoted ; acuity set as *; FELISHA hamilton, [facility] 5 07:56:57 Herpes zoster 5027521 Completed 202201/02/2025 SHINGLES FELISHA hamilton, [facility] 5 07:56:03 Dysthymi a 18598681 Active 2022 DEPRESSI ON WITH ANXIETY FELISHA hamilton, [facility] 5 07:55:28 Benign essentia l hyperten jovanni 4759190 Active [address] [facility] 5 07:55:28 Gastroes ophageal reflux disease 684258398 Active [address] [facility] 5 07:55:28 Fracture of upper end of humerus 558392131 Completed 202201/02/2025 CLOSED FRACTURE OF PROXIMAL END OF RIGHT HUMERUS, SEQUELA FELISHA hamilton 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 5 07:56:22 Atrial fibrilla tion 45391941 Active [address] [facility] 3 14:45:05 Coronary atherosc lerosis 231609795 Active 2022 bare metal stents to circ and LAD [address] [facility] 3 14:46:30 Iron deficien cy anemia 72216116 Active 2022 FELISHA DESIR null, [facility] 5 07:55:28 Hypothyr oidism 08355145 Active 2022 FELISHA DESIR null, [facility] 3 14:45:59 Anxiety 86737288 Active 2022 FELISHA DESIR null, [facility] 3 14:46:54 Viral hepatiti s C 35391084 Active 2022 FELISHA DESIR null, [facility] 5 07:55:28 Moderate recurren t major depressi on 71146244 Active 2023 FELISHA DESIR null, [facility] 5 07:55:28 Need for personal care assistan ce [id number] 077537 Active 2023 FELISHA DESIR null, [facility] 5 07:55:28 Frail elderly 201268466 Active 2023 FELISHA DESIR null, [facility] 5 07:55:28 Seasonal allergic rhinitis 268936186 Active 2023 FELISHA DESIR null, [facility] 5 07:55:28 Chronic pain 52087739 Active 2023 FELISHA DESIR null, [facility] 5 07:55:28 Dementia 73003691 Active 2023 FELISHA DESIR null, [facility] 5 07:55:28 Constipa tion 30826852 Active 2023 [facility] 07:55:44 Hyperlip idemia 22904063 Active 2024 [facility] 5 07:59:38 Occult blood detected in feces 49325886 Active [address] [facility] 5 09:13:35 Mean corpuscu lar volume above referenc e range 417128721 Active 2024 [facility] 5 09:14:07 Hypercal cemia 77700196 Active 2024 [facility] 5 10:07:49 Vitamin D deficien cy 86465989 Active 2024 Lyn Marmolejo MD [address] [place] [address], [phone], [facility] 5 12:54:55 Hyperpar athyroid ism 80241714 Active 2024 Lyn Marmolejo MD [address] [place] [address], [phone], [facility] 5 12:54:56 Dysuria 41455389 Active 2024 Dotty Celis [facility] 5 14:08:08 Problem Notes None recorded. Procedures Surgical History Date Name Laterality Status Provider Name and Address Organization Details Recorded Time 2024 Most Recent Mammogram completed FELISHA DESIR [facility] 5 16:09:39 2024 esophagogastroduodenoscopy completed YANELIS DESIR [facility] 5 12:23:16 2024 colonoscopy completed [facility] 5 10:20:11 2023 esophagogastroduodenoscopy completed KIARA DUCKWORTH [facility] 4 12:40:14 2023 colonoscopy completed Lyn Marmolejo MD [address] [place] [address], [phone], [facility] 5 10:19:30 cholecystectomy completed [facility] 3 14:48:40 replacement of mitral valve complete d [facility] 3 14:49:22 section completed [facility] 3 15:14:43 Imaging Results None recorded. Procedure Notes None recorded. Medical Equipment None Reported. Allergies Allergen ID Allergen Name Allergen Category Reaction Reaction Severity Criticality Documentation Date Start Date Code Code System Note Provider Name and Address Organization Details Recorded Time 1376 morphine medicatio n Not available Not available Not available 02/07/2023 7052 RxNorm Dotty Vimal [facility] 3 10:45:47 1377 diltiazem Not available Not available Not available Not available 02/07/2023 3443 RxNorm Dotty Vimal [facility] 3 10:45:54 4552 Bactrim medicatio n other severe high 04/17/2023 54256 9 RxNorm do not give d/t couma din Lola Vidal [facility] 4 13:34:33 28797 diltiazem hydrochlo ride medicatio n Not available Not available Not available 05/26/2023 1 RxNorm Comme nt: Recor ded 12/29 7:56A M by Yanelis Kitchen on, WINCH OPERATOR, 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 ; Promo talib; Trey bernal ce: *; Reaso n: Drug aller gy; ; [facility] 3 12:26:44 23132 morphine sulfate medicatio n Not available Not available Not available 05/26/2023 30530 RxNorm Comme nt: Recor ded 12/29 7:56A M by Yanelis Allens on, WINCH OPERATOR, 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 ; Promo talib; Trey bernal ce: *; Reaso n: Drug aller gy; ; [facility] 3 12:26:48 Medications Name [...] 01/02/20 3:42PM by Felisha Desir LPN (Authori candelario [...] 01/02/20 3:43PM by Felisha Desir LPN (Authori candelario through Lyn Marmolejo MD), Refill Request; Refill Quantity : 30; Tablet; Not Available Not Available Not Available fiber 06/08 completed Not Available Not Available Not Available [facility] Levothyro xine Sodium daily 06/08 completed 77145; Recorded 01/09/20 23 6:06PM by Shirley Quevedo (Authori zed through [...] Tobacco Smoking Status Former Smoker FELISHA DESIR [facility], [facility] 04/17/2023 14:48:01 What Was The Date Of Your Most Recent Tobacco Screening? 05/27/2025 [email or web address] Information not available 05/27/2025 Sex: Unknown Functional Status Question Answer Note LastModified by Organizat ion Details LastModified Time Do you use any illicit or recreational drugs? No [email or web address] Information not available 04/17/2023 Do you or have you ever used any other forms of tobacco or nicotine? No Information not available 06/29/2023 What is your level of alcohol consumption? None [email or web address] Information not available 04/17/2023 Mental Status None recorded. Family History Relationship Description Onset Age of this Age Resolved Age Notes LastModified by Organization Details LastModified Time Unspecified Relation Coronary atherosclero sis [email or web address] Not available 06/29 15:13:48 Medical History No medical history recorded. Gynecological History Statement/Question Response Most Recent Mammogram 09/15/2025 Obstetrics History GPAL:G 0 P 0 0 0 0 Immunizations Vaccine Type Date Status Note Provider Nam e and Address Organization Details Recorded Time Influenza, MDCK, quadrivalent, PF 2 completed FELISHA hamilton, [facility] 10/10/2024 08:38:58 COVID-19, mRNA, LNP-S, PF, 100 mcg/0.5mL dose or 50 mcg/0.25mL dose [address] [facility] 10/10/2024 08:38:58 COVID-19, mRNA, LNP-S, PF, 100 mcg/0.5mL dose or 50 mcg/0.25mL dose [address] [facility] 10/10/2024 08:38:58 COVID-19, mRNA, LNP-S, PF, 100 mcg/0.5mL dose or 50 mcg/0.25mL dose [address] [facility] 10/10/2024 08:38:58 Pneumococcal conjugate PCV20, polysaccharide LLE500 conjugate, adjuvant, PF [address] [facility] 10/10/2024 08:38:58 COVID-19, mRNA, LNP-S, bivalent, PF, 50 mcg/0.5 mL or 25mcg/0.25 mL dose [address] [facility] 10/10/2024 08:38:58 pneumococcal polysaccharide PPV23 3 completed FELISHA DESIR null, [facility] 04/17/2023 12:02:00 Tdap 1 completed FELISHA DESIR null, [facility] 10/10/2024 08:38:58 Influenza, split virus, trivalent, PF 3 completed FELISHA DESIR null, [facility] 04/17/2023 12:02:00 influenza, split (incl. purified surface antigen) 0 completed FELISHA hamilton, [facility] 04/17/2023 12:02:00 Hep A, adult 1 [facility] 10/10/2024 08:38:58 Hep A, adult 9 completed FELISHA DESIR null, [facility] 10/10/2024 08:38:58 Influenza, split virus, quadrivalent, PF 1 completed FELISHA DESIR null, [facility] 10/10/2024 08:38:58 Influenza, split virus, quadrivalent, PF 9 completed FELISHA DESIR null, [facility] 10/10/2024 08:38:58 Influenza, MDCK, trivalent, PF 4 completed FELISHA DESIR null, [facility] 10/10/2024 08:38:58 Influenza, MDCK, quadrivalent, preservative 3 completed FELISHA DESIR null, [facility] 10/10/2024 08:38:58 pneumococcal polysaccharide PPV23 8 completed Lola hamilton, [facility] 07/02/2024 08:41:52 Influenza, split virus, quadrivalent, PF 8 completed Lola hamilton, [facility] 07/02/2024 08:41:52 zoster recombinant 3 completed Lola Vidal null, [facility] 07/02/2024 14:52:40 COVID-19, mRNA, LNP-S, PF, 50 mcg/0.5 mL 4 completed FELISHA hamilton, [facility] 10/10/2024 08:38:58 Influenza, MDCK, trivalent, preservative 4 completed FELISHA DESIR null, [facility] 10/10/2024 08:38:58 Past Encounters Encounter ID Performer Location Encounter Start Date Encounter Closed Date Diagnosis/Indication Diagnosis SNOMED-CT Code Diagnosis ICD10 Code Diagnosis IMO Codes Diagnosis Note [id number] Lyn Marmolejo MD [facility] ([facility]) [address] [place] [phone] 06/11/2025 10:52:49 06/12/2025 12:43:36 Hypercalcemia 06884604 E83.52 [id number] Lyn Marmolejo MD [facility] ([facility]) [address] [place] [phone] 06/24/2025 12:18:01 06/30/2025 13:41:59 Hyperparathyroidism 24230409 E21.3 70366 corrected and ionized calcium are normalgfr 52 and stable Vitamin D deficiency 347 57130 E55.9 [id number] Lyn Marmolejo MD [facility] ([facility]) [address] [place] [phone] 5 07/01/2025 10:24:23 07/02/2025 11:29:38 Atrial fibrillation 86415284 I48.91 warfarin therapy [id number] Lyn Marmolejo MD [facility] ([facility]) [address] [place] [phone] 5 07/03/2025 08:14:55 07/13/2025 10:06:37 Benign essential hypertension 1758634 I10 Coronary atherosclerosis 551971309 I25.119 Atrial fibrillation 4943 6004 I48.91 warfarin therapyd/c naproxen d/t hx of bleeding Hyperlipidemia 26309125 E78.00 Hypothyroidism 26771226 E03.9 Hyperparathyroidism 6699 9008 E21.3 [id number] Lyn Marmolejo MD [facility] ([facility]) [address] [place] [phone] 5 07/06/2025 11:22:40 07/07/2025 09:33:46 History of mechanical prosthetic mitral valve replacement 102145974 Z95.2 [id number] Lyn Marmolejo MD [facility]) [address] [place] [phone] 5 07/09/2025 13:42:58 07/10/2025 14:24:59 Atrial fibrillation 31320508 I48.91 warfarin therapyd/c naproxen d/t hx of bleeding Health Concerns Section Related Observation LastModified by Organization Detai ls LastModified Time None Recorded Concern Status LastModified by Organization Details LastModified Time None Recorded Payers Encounter Date Sequence Insurance Name Policy Number Policy Hernandez Covered Member ID Hernandez Member ID Guarantor Name 07/09/2025 1 [place]ANT[place] - PPO) [id number] Odilia Ulloa [id number] Odilia Ulloa 07/09/2025 2 [place] Odilia Ulloa [id number] Odilia Ulloa OBGyn Episode No OBEpisode recorded.
--- OUTSIDE RECORDS SUMMARY | 2025-09-19 05:39 | XMS_ITS | Encounter Summary ---
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
--- OUTSIDE RECORDS SUMMARY | 2025-09-19 05:39 | XMS_ITS | Encounter Summary ---
Author Organization [facility] Address [address] [facility] Attn: [place] [address] Care Team Providers Care Dynamometer Tuner Name Role Phone Rico Muñiz MD, Sharan Jaime Primary Care Provider Encounter Details Date Type Department Care Team (Late st Contact Info) Description 04/23/2002 Outpatient Historical Sharan Gómez Jr., MD [address] [place] [address] Social History Tobacco Use Types Packs/Day Years Used Date Smoking Tobacco: Never Assessed Comments Unknown Sex and Gender Information Value Date Recorded Sex Assigned at Not on file 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
--- OUTSIDE RECORDS SUMMARY | 2025-09-19 05:39 | XMS_ITS | Encounter Summary ---
Author Organization [facility] Address [address] [place] [address] Care Team Providers Care Claim Administrator Name Role Phone Rico Muñiz MD, Sharan Jaime Primary Care Provider Encounter Details Date Type Department Care Team (Latest Contact Info) Description 03/09/2003 Outpatient Historical [facility] [address] [place] [phone] Екатерина Malone MD [address] [place] [address] ABN BLOOD CHEMISTRY NEC (Primary Dx) Social History Tobacco Use Types Packs/Day Years Used Date Smoking Tobacco: Never Assessed Comments Unknown Sex and Gender Information Value Date Recorded Sex Assigned at Not on file Legal Sex Female 5:42 AM SPECIALIST ICU Gender Identity Not on file Sexual Orientation Not on file documented as of this encounter Plan of Treatment Not on file documented as of this encounter Visit Diagnoses Diagnosis Other abnormal blood chemistry- Primary documented in this encounter Care Teams Claim Administrator Relationship Specialty Start Date End Date Sharan Gómez Jr., MD [address] [place] [address] PCP - General 08/10/05 documented as of this encounter
--- OUTSIDE RECORDS SUMMARY | 2025-09-19 05:39 | XMS_ITS | Encounter Summary ---
Author Organization [facility] Address [address] [place] [address] Care Team Providers Care Client Advocate Name Role Phone Rico Muñiz MD, Sharan Jaime Primary Care Provider Encounter Details Date Type Department Care Team (Late st Contact Info) Description 10/14/2020 Lab Requisition [facility] [address] [place] [address] Paulina Peterson MD [address] [place] [address] Social History Tobacco Use Types Packs/Day Years Used Date Smoking Tobacco: Never Assessed Comments Unknown Sex and Gender Information Value Date Recorded Sex Assigned at Not on file Legal Sex Female 5:42 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 Gender Identity Not on file Sexual Orientation Not on file documented as of this encounter Plan of Treatment Not on file documented as of this encounter Procedures Procedure Name Priority Date/Time Associated Diagnosis Comments PROTIME-INR Routine 10/14/2020 6:16 AM LENS 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 documented in this encounter Results * (ABNORMAL) PROTIME-INR (10/14/2020 6:16 AM LENS 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) PROTIME 43.3(H) 11.9 - 15.5 Seconds 10/14/2020 4:10 PM LENS 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 [facility] INR 4.4(H) 0.8 - 1.2 10/14/2020 4:10 PM LENS 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 [facility] Blood Collection / Unknown 10/14/2020 6:16 AM LENS 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 10/14/2020 3:45 PM LENS 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 Narrative [facility] - 10/14/2020 4:10 PM LENS 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 Expected Values for INR: DVT/PE Goal INR 2.5; range 2.0 - 3.0 Valve Replacement Tissue Goal INR 2.5; range 2.0 - 3.0 Valve Replacement Mechanical Goal INR 3.0; range 2.5 - 3.5 POST-UT Goal INR 2.5; range 2.0 - 3.0 or Goal INR 3.0; range 2.5 - 3.5 Atrial Fibrillation Goal INR 2.5; range 2.0 - 3.0 Ischemic Stroke Goal INR 2.5; range 2.0 - 3.0 For additional information see Guidelines for Anticoagulation available from the pharmacy [facility] Paulina Peterson MD HEMATOLOGY ORDERABLES Maame smart Result [facility] [address] [place] [address] documented in this encounter Visit Diagnoses Not on filedocumented in this encounter Care Teams Client Advocate Relationship Specialty Start Date End Date Sharan Gómez Jr., MD [address] [place] [phone] PCP - General 08/10/05 documented as of this encounter
--- OUTSIDE RECORDS SUMMARY | 2025-09-19 05:39 | XMS_ITS | Encounter Summary ---
Author Organization [facility] Address [address] [place] [address] Care Team Providers Care Plating Department Helper Name Role Phone Rico Muñiz MD, Sharan Jaime Primary Care Provider Encounter Details Date Type Department Care Team (Latest Contact Info) Description 07/15/2002 Outpatient Historical [facility] Rafael Lopez Michelle [address] [place] [phone] Patrick Olsen MD NO ADDRESS ON FILE POSTMENOPAUSAL BLEEDING (Primary Dx); DYSPAREUNIA; SCREENING MAL NEOP-CERVIX Social History Tobacco Use Types Packs/Day Years Used Date Smoking Tobacco: Never Assessed Comments Unknown Sex and Gender Information Value Date Recorded Sex Assigned at Not on file Legal Sex Female 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
--- OUTSIDE RECORDS SUMMARY | 2025-09-19 05:39 | XMS_ITS | Encounter Summary ---
Author Organization [facility] Address [address] [place] [address] Care Team Providers Care Contour Sander Name Role Phone Rico Muñiz MD, Sharan Jaime Primary Care Provider Encounter Details Date Type Department Care Team (Latest Contact Info) Description 06/26/2003 Outpatient Historical [facility] [address] [place] [phone] Serge Arrington MD [address] [place] [address] Mitral valve disorder (Primary Dx); HYPERTENSION NOS; HYPERLIPIDEMIA NEC/NOS; VACCINE FOR STREP PNEUMONIAE Social History Tobacco Use Types Packs/Day Years Used Date Smoking Tobacco: Never Assessed Comments Unknown Sex and Gender Information Value Date Recorded Sex Assigned at Not on file Legal Sex Female 5:42 AM FILM 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
--- OUTSIDE RECORDS SUMMARY | 2025-09-19 05:39 | XMS_ITS | Encounter Summary ---
Author Organization [facility] Address [address] [place] [address] Care Team Providers Care Senior Policy Advisor Name Role Phone Rico Muñiz MD, Sharan Jaime Primary Care Provider Encounter Details Date Type Department Care Team (Latest Contact Info) Description 09/15/1998 Outpatient Historical [facility] Sharan Gómez Jr., MD [address] [place] [address] Unspecified essential hypertension (Primary Dx); Esophagitis, unspecified; senior care (current) use of anticoagulants; Need vaccination-viral disease Social History Tobacco Use Types Packs/Day Years Used Date Smoking Tobacco: Never Assessed Comments Unknown Sex and Gender Information Value Date Recorded Sex Assigned at Not on file Legal Sex Female 5: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 Gender Identity Not on file Sexual Orientation Not on file documented as of this encounter Plan of Treatment Not on file documented as of this encounter Visit Diagnoses Diagnosis Unspecified essential hypertension- Primary Esophagitis, unspecified terminal system operator (current) use of anticoagulants Long-term (current) use of anticoagulants Need vaccination-viral disease Need for prophylactic vaccination and inoculation against other viral diseases documented in this encounter Care Teams Senior Policy Advisor Relationship Specialty Start Date End Date Sharan Gómez Jr., MD [address] [place] [phone] PCP - General 08/10/05 documented as of this encounter
--- OUTSIDE RECORDS SUMMARY | 2025-09-19 05:39 | XMS_ITS | Encounter Summary ---
Author Organization [facility] Address [address] [place] [address] Care Team Providers Care Press Officer Name Role Phone Rico Muñiz MD, Sharan Jaime Primary Care Provider Encounter Details Date Type Department Care Team (Latest Contact Info) Description 07/04/2005 Outpatient Historical [facility] Luis AFaisal Lopez [place] [place] [address] Serge Arrington MD [address] [place] [address] Mitral valve disorder (Primary Dx); HYPERTENSION NOS; ABN FIND-STOOL CONTENTS-OCC BLOOD; SCREENING MAL NEOP-CERVIX Social History Tobacco Use Types Packs/Day Years Used Date Smoking Tobacco: Never Assessed Comments Unknown Sex and Gender Information Value Date Recorded Sex Assigned at Not on file Legal Sex Female 5:42 AM FLOWER 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
--- OUTSIDE RECORDS SUMMARY | 2025-09-19 05:39 | XMS_ITS | Encounter Summary ---
Author Organization [facility] Address [address] [place] [address] Care Team Providers Care Batcher Operator Name Role Phone Rico Muñiz MD, Sharan Jaime Primary Care Provider Encounter Details Date Type Department Care Team (Latest Contact Info) Description 02/16/1999 Outpatient Historical [facility] Sharan Gómez Jr., MD [address] [place] [address] Unspecified essential hypertension (Primary Dx); care home (current) use of anticoagulants Social History Tobacco Use Types Packs/Day Years Used Date Smoking Tobacco: Never Assessed Comments Unknown Sex and Gender Information Value Date Recorded Sex Assigned at Not on file Legal Sex Female 5: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 ESCORT Gender Identity Not on file Sexual Orientation Not on file documented as of this encounter Plan of Treatment Not on file documented as of this encounter Visit Diagnoses Diagnosis Unspecified essential hypertension- Primary care home (current) use of anticoagulants Long-term (current) use of anticoagulants documented in this encounter Care Teams Batcher Operator Relationship Specialty Start Date End Date Sharan Gómez Jr., MD [address] [place] [address] PCP - General 08/10/05 documented as of this encounter
--- OUTSIDE RECORDS SUMMARY | 2025-09-19 05:39 | XMS_ITS | Encounter Summary ---
Author Organization [facility] Address [address] [place] [address] Care Team Providers Care Diffusion Operator Name Role Phone Rico Muñiz MD, Sharan Jaime Primary Care Provider Encounter Details Date Type Department Care Team (Latest Contact Info) Description 10/15/1998 Outpatient Historical [facility] Sharan Gómez Jr., MD [address] [place] [address] Unspecified essential hypertension (Primary Dx); Hypopotassemia; terminologist (current) use of anticoagulants Social History Tobacco Use Types Packs/Day Years Used Date Smoking Tobacco: Never Assessed Comments Unknown Sex and Gender Information Value Date Recorded Sex Assigned at Not on file Legal Sex Female 5:42 AM 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
--- OUTSIDE RECORDS SUMMARY | 2025-09-19 05:39 | XMS_ITS | Encounter Summary ---
Author Organization [facility] Address [address] [place] [address] Care Team Providers Care Operations Trainer Name Role Phone Rico Muñiz MD, Sharan Jaime Primary Care Provider Encounter Details Date Type Department Care Team (Latest Contact Info) Description 02/25/1999 Outpatient Historical [facility] Sharan Gómez Jr., MD [address] [place] [address] Dietary surveil/genetic counselor (Primary Dx) Social History Tobacco Use Types Packs/Day Years Used Date Smoking Tobacco: Never Assessed Comments Unknown Sex and Gender Information Value Date Recorded Sex Assigned at Not on file Legal Sex Female 5:42 AM CENTRAL OFFICE 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
--- OUTSIDE RECORDS SUMMARY | 2025-09-19 05:39 | XMS_ITS | Encounter Summary ---
Author Organization [facility] Address [address] [place] [address] Care Team Providers Care Lobster Catcher Name Role Phone Rico Muñiz MD, Sharan Jaime Primary Care Provider Encounter Details Date Type Department Care Team (Latest Contact Info) Description 04/23/2002 Outpatient Historical [facility] Sharan Gómez Jr., MD [address] [place] [address] Pure hypercholesterolem (Primary Dx); HYPERCALCEMIA Social History Tobacco Use Types Packs/Day Years Used Date Smoking Tobacco: Never Assessed Comments Unknown Sex and Gender Information Value Date Recorded Sex Assigned at Not on file Legal Sex Female 5:42 AM CRYSTAL GROWER Gender Identity Not on file Sexual Orientation Not on file documented as of this encounter Plan of Treatment Not on file documented as of this encounter Visit Diagnoses Diagnosis Pure hypercholesterolem- Primary Pure hypercholesterolemia Hypercalcemia documented in this encounter Care Teams Lobster Catcher Relationship Specialty Start Date End Date Sharan Gómez Jr., MD [address] [place] [address] PCP - General 08/10/05 documented as of this encounter
--- OUTSIDE RECORDS SUMMARY | 2025-09-19 05:39 | XMS_ITS | Encounter Summary ---
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 Social History Tobacco Use Types Packs/Day Years Used Date Smoking Tobacco: Never Assessed Comments Unknown Sex and Gender Information Value Date Recorded Sex Assigned at Not on file Legal Sex Female 5: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
--- OUTSIDE RECORDS SUMMARY | 2025-09-19 05:39 | XMS_ITS | Data Portability ---
Author Organization [facility] Kenneth Haas [facility], [facility]JosueISIDORO [facility] Address [address] [place] [address] Care Team Providers Care Nursing Home Administrator Name Role Phone DANNY MARMOLEJO Primary Care Provider [phone] Assessment Encounter Date Assessment Date Assessment LastModified by Organization Details LastModified Time 08/17/2025 08/17/2025 she has a rescheduled stamper blocker apt in a few weeks. [email or web address] Not available 08/17/2025 14:38:16 Plan of Treatment Reminders Order Date Submit Date Provider Last Modified By Organization Details Last Modified Time Details Appointments None recorded. Lab PT/INR 2024 025 [facility] ([facility]), [address] [place] [address], [address], 13:36:28 CMP, serum or plasma - ORDERS FROM [facility] 2024 025 [facility], [address] [place] [address], [address], 10:43:32 PT/INR 2024 025 [facility] ([facility]), [address] [place] [address], [address], 13:34:27 protein electroph oresis panel, serum or plasma 2024 025 [facility], [address] [facility] [address], [place], [address], 00:38:16 vitamin B12, serum 2024 [facility], [address], [place], [address], 00:38:18 mma (methylma lonic acid), serum 2024 [facility], [address], [address], [place], [address], 00:38:15 CBC 2024 [place] [facility], [address] [facility], [address], [address], 15:57:00 unlisted lab - periphera l blood smear review 2024 [facility], [address], [address], [place], [address], 15:11:08 PT/INR 2024 [facility] ([facility]), [address] [place], [address], 15:57:14 PTH (parathyr oid hormone), intact + calcium, serum or plasma 2024 [facility], [address], [address], [place], [address], 00:38:16 thyrotrop in, QN, serum or plasma 2024 [place] [facility], [address] [facility], [address], [address], 16:04:05 T4, free, serum 2024 [place] [facility], [address], [address] [place], [address], 00:38:17 PT/INR 2024 [facility] ([facility]), [address] [place], [address], 11:56:37 Referral None recorded. Procedures None recorded. Surgeries None recorded. Imaging US, echocardi ogram, transthor acic, complete, w/ color flow 2024 [facility], [address] [place] [address], [address], 09:16:34 Medication Orders lorazepam 0.5 mg tablet 2024 [place] [facility], [address] [place] [address], [address], 14:21:51 Patient TargetsNo targets recorded. Patient Instructions Encounter Date Encounter Id Patient Instructions Last Modified By Organization Details Last Modified Time 08/17/2025 [id number] Folic Acid Not available 07/30 14:47:55 Reason for Referral None Reported. Results Created Date Observation Date Name Description Value Unit Range Abnormal Flag Note LastModifiedBy Organization Detail LastModifiedTime 07/09/2007/09/2025 PT/IN R Protime 34.6 Not Available [facility] ([facility]) [address] [place], [address], 07/09/2025 13:44:17 07/09/2007/09/2025 PT/IN R INR 2.9 Not Available [facility] ([facility]) [address] [place], [address], 07/09/2025 13:44:17 07/14/2007/14/2025 URINA LYSIS WITH MICRO color YELLOW Not Available [facility] [address], [place], [address], 07/14/2025 14:52:32 07/14/20 25 07/14/2025 URINA LYSIS WITH MICRO clarity CLEAR Not Available [facility] [address], [place], [address], 07/14/2025 14:52:32 07/14/20 25 07/14/2025 URINA LYSIS WITH MICRO glu NEGATI VE Not Available [facility] [address], [place], [address], 07/14/2025 14:52:32 07/14/20 25 07/14/2025 URINA LYSIS WITH MICRO bili NEGATI VE Not Available [facility] [address], [place], [address], 07/14/2025 14:52:32 07/14/20 25 07/14/2025 URINA LYSIS WITH MICRO ket NEGATI VE Not Available [facility] [address], [place], [address], 07/14/2025 14:52:32 07/14/20 25 07/14/2025 URINA LYSIS WITH MICRO S.g 1.010 1.005- 1.025 Not Available [facility] [address], [place], [address], 07/14/2025 14:52:32 07/14/20 25 07/14/2025 URINA LYSIS WITH MICRO pH 5.0 5.0-7. 0 Not Available [facility] [address], [place], [address], 07/14/2025 14:52:32 07/14/20 07/14/2025 URINA LYSIS WITH MICRO pro NEGATI VE Not Available [facility] [address], [place], [address], 07/14/2025 14:52:32 07/14/20 25 07/14/2025 URINA LYSIS WITH MICRO uro 0.2 E.U./D L Not Available [facility] [address], [place], [address], 07/14/2025 14:52:32 07/14/20 25 07/14/2025 URINA LYSIS WITH MICRO nit NEGATI VE Not Available [facility] [address], [place], [address], 07/14/2025 14:52:32 07/14/20 25 07/14/2025 URINA LYSIS WITH MICRO blo NEGATI VE Not Available [facility] [address], [place], [address], 07/14/2025 14:52:32 07/14/20 25 07/14/2025 URINA LYSIS WITH MICRO jose elias NEGATI VE Not Available [facility] [address], [place], [address], 07/14/2025 14:52:32 07/14/2007/14/2025 URINA LYSIS WITH MICRO WBC 0-1 abnormal Not Available [facility] [address], [place], [address], 07/14/2025 14:52:32 07/14/2007/14/2025 URINA LYSIS WITH MICRO RBC NEGATI VE Not Available [facility] [address], [place], [address], 07/14/2025 14:52:32 07/14/20 25 07/14/2025 URINA LYSIS WITH MICRO epi cells 1-2 abnormal Not Available [facility] [address] [facility] [address], [place], [address], 07/14/2025 14:52:32 07/14/20 25 07/14/2025 URINA LYSIS WITH MICRO bacteria 1-2 HYALIN E CAST abnormal Not Available [facility] [address] [facility] [address], [place], [address], 07/14/2025 14:52:32 07/14/20 25 07/14/2025 URINA LYSIS WITH MICRO other NEG Not Available [facility] [address] [facility] [address], [place], [address], 07/14/2025 14:52:32 07/14/20 25 07/16/2025 CULTU RE, URINE , ROUTI NE culture, urine, routine SEE NOTE CULTU RE, URINE , ROUTI NE Micro Numbe r: [id number] Test Statu s: Final Speci men Sourc e: Urine Speci men Quali ty: Adequ ate Resul t: No Growt h Not Available [address], [address], 07/16/2025 02:51:13 07/17/2007/17/2025 PT/IN R Protime 34.4 Not Available [facility] ([facility]) [address] [place] [address], [address], 07/16/2025 12:07:15 07/17/20 25 07/17/2025 PT/IN R INR 2.9 Not Available [facility] ([facility]) [address] [place] [address], [address], 07/16/2025 12:07:15 07/23/20 25 07/23/2025 PT/IN R Protime 47.0 Not Available [facility] ([facility]) [address] [place] [address], [address], 07/23/2025 11:36:06 07/23/20 25 07/23/2025 PT/IN R INR 3.9 Not Available [facility] ([facility]) [address] [place], [address], 07/23/2025 11:36:06 07/30/2007/30/2025 PT/IN R Protime 30.2 Not Available [facility] ([facility]) [address] [place], [address], 07/30/2025 11:33:15 07/30/2007/30/2025 PT/IN R INR 2.5 Not Available [facility] ([facility]) [address] [place], [address], 07/30/2025 11:33:15 08/07/2008/07/2025 PT/IN R Protime 26.3 Not Available [facility] ([facility]) [address] [place], [address], 08/07/2025 11:40:14 08/07/20 25 08/07/2025 PT/IN R INR 2.2 Not Available [facility] ([facility]) [address] [place], [address], 08/07/2025 11:40:14 08/17/20 25 08/17/2025 CBC WBC 6.3 x10 4.0-10 .5 Not Available [facility] [address] [facility] [address], [place], [address], 08/17/2025 15:57:00 08/17/20 25 08/17/2025 CBC RBC 3.45 x10 3.50-5 .50 low Not Available [facility] [address] [facility], [place], [address], 08/17/2025 15:57:00 08/17/20 25 08/17/2025 CBC HGB 12.4 g/dL 12.0-1 6.0 Not Available [facility] [address] [facility] [address], [place], [address], 08/17/2025 15:57:00 08/17/20 25 08/17/2025 CBC HCT 37.7 % 37.0-4 7.0 Not Available [facility] [address] [facility], [place], [address], 08/17/2025 15:57:00 08/17/2008/17/2025 CBC MCV 109.2 fL 80.0-9 9.9 high Not Available [facility] [address] [facility], [place], [address], 08/17/2025 15:57:00 08/17/20 25 08/17/2025 CBC MCH 36.0 pg 27.0-3 2.0 high Not Available [facility] [address] [facility] [address], [place], [address], 08/17/2025 15:57:00 08/17/20 25 08/17/2025 CBC MCHC 32.9 g/dL 32.0-3 6.0 Not Available [facility] [address] [facility] [address], [place], [address], 08/17/2025 15:57:00 08/17/20 25 08/17/2025 CBC RDW 12.7 % 11.5-1 4.5 Not Available [facility] [address] [facility] [address], [place], [address], 08/17/2025 15:57:00 08/17/20 25 08/17/2025 CBC plt 239.0 x10 140.0- 451.0 Not Available [facility] [address] [facility], [place], [address], 08/17/2025 15:57:00 08/17/20 25 08/17/2025 CBC lymphocytes % 27.7 % 20.0-5 0.0 Not Available [facility] [address] [facility] 1, [place], [address], 08/17/2025 15:57:00 08/17/20 25 08/17/2025 CBC granulcytes % 56.9 % 30.0-7 0.0 Not Available [facility] [address] [facility] 1, [place], [address], 08/17/2025 15:57:00 08/17/20 25 08/17/2025 CBC monocytes % 10.1 % 2.0-16 .0 Not Available [facility] [address] [facility] 1, [place], [address], 08/17/2025 15:57:00 08/17/20 25 08/17/2025 CBC granulcytes# 3.6 x10 Not Cyndi ilable [facility] [address] [facility] 1, [place], [address], 08/17/2025 15:57:00 08/17/20 25 08/17/2025 CBC lymphocytes # 1.8 x10 Not Available [facility] [address] [address], [place], [address], 08/17/2025 15:57:00 08/17/20 25 08/17/2025 CBC monocytes # 0.6 x10 Not Avai lable [facility] [address] [facility] 1, [place], [address], 08/17/2025 15:57:00 08/17/20 25 08/17/2025 TSH TSH 0.81 uIU/m L 0.49-3 .82 Not Available [facility] [address] [facility] 1, [place], [address], 08/17/2025 16:04:05 08/17/20 25 08/18/2025 PERIP HERAL BLOOD SMEAR REVIE W peripheral blood smear review Macro cytos is 1 + Ovalo cytes 1 + Polyc hroma mikhail 1 + Revie w of the perip heral smear revea ls adequ ate numbe rs of plate lets. Revie w of perip heral smear confi jace autom ated resul ts. Not Available [facility] [address] [place], [address], 08/18/2025 15:11:08 08/17/20 25 08/19/2025 METHY LMALO [...] : 63-24 1 nmol/ L Not Available [facility] [address] [address] [place], [address], 08/20/2025 00:38:15 08/17/20 25 08/19/2025 METHY LMALO SE ACID [...] cteri stics have been deter mined by [facility]. It has not been clear ed or appro shiela by the FDA. This assay has been valid ated pursu ant to the CLIA regul ation s and is used for clini luisito purpo ses. Not Available [address] [address] [place], [address], 08/20/2025 00:38:15 08/17/2008/19/2025 PROTE IN, TOTAL AND PROTE IN ELECT ROPHO RESIS W/ REFL [place] protein, total 7.1 g/dL 6.1-8. 1 normal Not Available [facility] [address] [address] [place], [address], 08/20/2025 00:38:16 08/17/20 25 08/19/2025 PROTE IN, TOTAL AND PROTE IN ELECT ROPHO RESIS W/ REFL [place] albumin 4.5 g/dL 3.8-4. 8 normal Not Available [facility] [address] [address] [place], [address], 08/20/2025 00:38:16 08/17/20 25 08/19/2025 PROTE IN, TOTAL AND PROTE IN ELECT ROPHO RESIS W/ REFL [place] alpha 1 globulin 0.3 g/dL 0.2-0. 3 normal Not Available [address], [address], 08/20/2025 00:38:16 08/17/20 25 08/19/2025 PROTE IN, TOTAL AND PROTE IN ELECT ROPHO RESIS W/ REFL [place] alpha 2 globulin 0.5 g/dL 0.5-0. 9 normal Not Available [address], [address], 08/20/2025 00:38:16 08/17/20 25 08/19/2025 PROTE IN, TOTAL AND PROTE IN ELECT ROPHO RESIS W/ REFL [place] beta 1 globulin 0.4 g/dL 0.4-0. 6 normal Not Available [address], [address], 08/20/2025 00:38:16 08/17/20 25 08/19/2025 PROTE IN, TOTAL AND PROTE IN ELECT ROPHO RESIS W/ REFL [place] beta 2 globulin 0.3 g/dL 0.2-0. 5 normal Not Available [address], [address], 08/20/2025 00:38:16 08/17/20 25 08/19/2025 PROTE IN, TOTAL AND PROTE IN ELECT ROPHO RESIS W/ REFL [place] gamma globulin 1.1 g/dL 0.8-1. 7 normal Not Available [address], [address], 08/20/2025 00:38:16 08/17/20 25 08/19/2025 PROTE IN, TOTAL AND PROTE IN ELECT ROPHO RESIS W/ REFL [place] interpretati on No restr icted band (M-sp mera) seen. Not Available [facility] [address] [place], [address], 08/20/2025 00:38:16 08/17/2008/19/2025 PTH, INTAC T (ICMA ) AND IONIZ [...] or Low Joie l High Not Available [address], [address], 08/20/2025 00:38:16 08/17/2008/19/2025 PTH, INTAC T (ICMA ) AND IONIZ ED CALCI UM calcium 10.2 mg/dL 8.6-10 .4 normal Not Available [address], [address], 08/20/2025 00:38:16 08/17/20 25 08/19/2025 PTH, INTAC T (ICMA ) AND IONIZ ED CALCI UM calcium, ionized 5.6 mg/dL 4.7-5. 5 high Not Available [address], [address], 08/20/2025 00:38:16 08/17/20 25 08/19/2025 T4, FREE T4, free 1.9 NG/dL 0.8-1. 8 high Not Available [address] [place], [address], 08/20/2025 00:38:17 08/17/2008/19/2025 VITAM IN B12 vitamin B12 >2000 pg/mL 200-11 00 high Not Available [facility] [address] [place], [address], 08/20/2025 00:38:18 08/17/20 25 08/17/2025 PT/IN R Protime 21.5 Not Available [facility] [address] [place], [address], 08/17/2025 14:33:48 08/17/20 25 08/17/2025 PT/IN R INR 1.8 Not Available [facility] ([facility]) [address] [place] [address], [address], 08/17/2025 14:33:48 09/02/20 25 09/02/2025 PT/IN R Protime 29.0 Not Available [facility] ([facility]) [address] [place] [address], [address], 09/02/2025 13:17:30 09/02/20 25 09/02/2025 PT/IN R INR 2.4 Not Available [facility] ([facility]) [address] [place] [address], [address], 09/02/2025 13:17:30 09/09/20 25 09/09/2025 CMP (FEMA LE) glucose 93.0 mg/dL 60.0-9 9.0 Not Available [facility] [address] [facility] [address], [place], [address], 09/09/2025 10:43:31 09/09/20 25 09/09/2025 CMP (FEMA LE) BUN (blood urea nitrogen) 20.0 mg/dL 10.0-2 6.0 Not Available [facility] [address] [facility] [address], [place], [address], 09/09/2025 10:43:31 09/09/20 25 09/09/2025 CMP (FEMA LE) creatinine (serum) 0.9 mg/dL 0.4-1. 5 Not Available [facility] [address] [facility], [place], [address], 09/09/2025 10:43:31 09/09/20 25 09/09/2025 CMP (FEMA LE) BUN/creatini ne ratio 22.22 ratio Not Available [facility] [address] [facility], [place], [address], 09/09/2025 10:43:31 09/09/20 25 09/09/2025 CMP (FEMA LE) eGFR calculated 64.9 Not Available [facility] [address] [facility], [place], [address], 09/09/2025 10:43:31 09/09/20 25 09/09/2025 CMP (FEMA LE) total protein 7.5 g/dL 6.0-8. 5 Not Available [facility] [address] [facility], [place], [address], 09/09/2025 10:43:31 09/09/20 25 09/09/2025 CMP (FEMA LE) total bilirubin 1.1 mg/dL 0.2-1. 3 Not Available [facility] [address] [facility], [place], [address], 09/09/2025 10:43:31 09/09/20 25 09/09/2025 CMP (FEMA LE) albumin 5.0 g/dL 3.5-5. 5 Not Available [facility] [address] [facility], [place], [address], 09/09/2025 10:43:31 09/09/20 25 09/09/2025 CMP (FEMA LE) globulin 2.5 calc Not Available [facility] [address] [facility], [place], [address], 09/09/2025 10:43:31 09/09/20 25 09/09/2025 CMP (FEMA LE) AST (SGOT) 35.0 U/L 0.0-46 .0 Not Available [facility] [address] [facility], [place], [address], 09/09/2025 10:43:31 09/09/20 25 09/09/2025 CMP (FEMA LE) altv (SGPT) 17.0 U/L 13.0-6 9.0 normal Not Available [facility] [address] [facility], [place], [address], 09/09/2025 10:43:31 09/09/20 25 09/09/2025 CMP (FEMA LE) A/G ratio 2.0 ratio Not Available [facility] [address] [facility], [place], [address], 09/09/2025 10:43:31 09/09/20 25 09/09/2025 CMP (FEMA LE) ALP phos 77.0 U/L 30.0-1 40.0 normal Not Available [facility] [address] [facility], [place], [address], 09/09/2025 10:43:31 09/09/20 25 09/09/2025 CMP (FEMA LE) calcium 10.4 mg/dL 8.4-10 .5 Not Available [facility] [address] [facility] 1, [place], [address], 09/09/2025 10:43:31 09/09/20 25 09/09/2025 CMP (FEMA LE) sodium 139.0 mmol/ L 136.0- 145.0 Not Available [facility] [address] [facility] [address], [place], [address], 09/09/2025 10:43:31 09/09/20 25 09/09/2025 CMP (FEMA LE) potassium 4.2 mmol/ L 3.5-5. 1 Not Available [facility] [address] [facility] 1, [place], [address], 09/09/2025 10:43:31 09/09/20 25 09/09/2025 CMP (FEMA LE) chloride 105.0 mmol/ L 98.0-1 10.0 normal Not Available [facility] [address] [facility] 1, [place], [address], 09/09/2025 10:43:31 09/09/20 25 09/09/2025 CMP (FEMA LE) C02 28.0 mmol/ L 22.0-3 1.0 Not Available [facility] [address] [address], [place], [address], 09/09/2025 10:43:31 09/09/20 25 09/09/2025 CMP (FEMA LE) anion gap 6.0 calc Not Available [facility] [address] [facility] 1, [place], [address], 09/09/2025 10:43:31 09/09/20 25 09/09/2025 CMP (FEMA LE) osmolality 289.3 calc Not Available [facility] [address] [facility] 1, [place], [address], 09/09/2025 10:43:31 09/17/20 25 09/17/2025 PT/IN R Protime 27.5 Not Available [facility] ([facility]) [address] [place], [address], 09/17/2025 13:23:29 09/17/20 25 09/17/2025 PT/IN R INR 2.3 Not Available [facility] ([facility]) [address] [place], [address], 09/17/2025 13:23:29 08/05/20 25 08/04/2025 XR, cervi luisito spine , 2 or 3 view No observ ation record ed. [facility] [address] [place], [address], 08/07/2025 13:25:55 08/05/2008/04/2025 XR, shoul vito, 2 or more view No observ ation record ed. [facility] [address] [place], [address], 08/07/2025 13:25:55 09/09/20 25 09/08/2025 US, echo ardio gram, trans thora cic, compl ete, w/ color flow No observ ation record ed. [facility] [address] [place], [address], 09/11/2025 09:19:21 09/15/2009/15/2025 MAMMO , scree ilya, digit al, bilat eral No observ ation record ed. [address] [place], [address], 09/16/2025 16:09:54 Result Notes None recorded. Problems Name Problem SNOMED Code Status Onset Date Resolution Date Notes Provider Name and Address Organization Details Recorded Time Depressi ve disorder 76955747 Completed 202010/14/2021 Depressi on - Status is Inactive ; 10/14/20 11:08AM by Maryellen Marmolejo PA-C, Annotati on/Adden dum; Promoted ; acuity set as *; FELISHA hamilton, DAI - [facility]CJosue 07:56:57 Herpes zoster 0110170 Completed 202201/02/2025 SHINGLES FELISHA hamilton, [facility] 5 07:56:03 Dysthymi a 64196465 Active 2022 DEPRESSI ON WITH ANXIETY FELISHA hamilton, [facility] 5 07:55:28 Benign essentia l hyperten jovanni 0806567 Active 2022 FELISHA hamilton, [facility] 5 07:55:28 Gastroes ophageal reflux disease 749118618 Active 2022 FELISHA hamilton, [facility] 5 07:55:28 Fracture of upper end of humerus 770059407 Completed 202201/02/2025 CLOSED FRACTURE OF PROXIMAL END OF RIGHT HUMERUS, SEQUELA FELISHA hamilton, [facility] 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 5 07:56:22 Atrial fibrilla tion 21121330 Active 2022 FELISHA hamilton, [facility] 3 14:45:05 Coronary atherosc lerosis 795290413 Active 2022 bare metal stents to circ and LAD 2011 FELISHA hamilton, [facility] 3 14:46:30 Iron deficien cy anemia 51106013 Active 2022 FELISHA hamilton, [facility] 5 07:55:28 Hypothyr oidism 44912213 Active 2022 FELISHA hamilton [facility] 3 14:45:59 Anxiety 24368052 Active 2022 FELISHA DESIR null, [facility] 3 14:46:54 Viral hepatiti s C 78358005 Active 2022 FELISHA DESIR null, [facility] 5 07:55:28 Moderate recurren t major depressi on 34232163 Active 2023 FELISHA DESIR null, [facility] 5 07:55:28 Need for personal care assistan ce [id number] 669111 Active 2023 FELISHA DESIR null, [facility] 5 07:55:28 Frail elderly 237613869 Active 2023 FELISHA DESIR null, [facility] 5 07:55:28 Seasonal allergic rhinitis 077806520 Active 2023 FELISHA DESIR null, [facility] 5 07:55:28 Chronic pain 74543375 Active 2023 FELISHA DESIR null, [facility] 5 07:55:28 Dementia 06275682 Active 2023 FELISHA DESIR null, [facility] 5 07:55:28 Constipa tion 94554970 Active 2023 FELISHA DESIR null, [facility] 5 07:55:44 Hyperlip idemia 08091816 Active 2024 FELISHA DESIR null, [facility] 5 07:59:38 Occult blood detected in feces 99222813 Active 2024 FELISHA DESIR null, [facility] 5 09:13:35 Mean corpuscu lar volume above referenc e range 570302591 Active 2024 FELISHA hamilton [facility] [place] 5 09:14:07 Hypercal cemia 24793220 Active 2024 FELISHA hamilton, [facility] [place] 5 10:07:49 Vitamin D deficien cy 95153546 Active 2024 Danny Marmolejo MD [address] [place] [address], [phone], [facility] [place] 5 12:54:55 Hyperpar athyroid ism 41608987 Active 2024 Danny Marmolejo MD [address] [place] [address], [phone], [facility] [place] 5 12:54:56 Dysuria 59839450 Active 2024 Dotty Celis null, [facility], [facility] 5 14:08:08 Problem Notes None recorded. Procedures Surgical History Date Name Laterality Status Provider Name and Address Organization Details Recorded Time 2024 Most Recent Mammogram completed FELISHA DESIR [facility], [place] 5 16:09:39 2024 esophagogastroduodenoscopy completed ISRAEL DESIR [facility] [facility] L.LJosueCJosue 5 12:23:16 2024 colonoscopy completed FELISHA DESIR [facility], ClariceLDaisy 5 10:20:11 2023 esophagogastroduodenoscopy completed KIARA DUCKWORTH [facility], LJosueLJosueCJosue 4 12:40:14 2023 colonoscopy completed Danny Marmolejo MD [address] [place], [address], [facility], L.L.CJosue 5 10:19:30 cholecystectomy completed FELISHA DESIR [facility], L.L.CJosue 3 14:48:40 replacement of mitral valve complete d FELISHA DESIR [facility], L.L.CJosue 3 14:49:22 section completed FELISHA DESIR [facility], L.L.CJosue 3 15:14:43 Imaging Results None recorded. Procedure Notes None recorded. Medical Equipment None Reported. Allergies Allergen ID Allergen Name Allergen Category Reaction Reaction Severity Criticality Documentation Date Start Date Code Code System Note Provider Name and Address Organization Details Recorded Time 1376 morphine medicatio n Not available Not available Not available 02/07/2023 7052 RxNorm [facility] 10:45:47 1377 diltiazem Not available Not available Not available Not available 02/07/2023 3443 RxNorm [facility] 3 10:45:54 4552 Bactrim medicatio n other severe high 04/17/2023 34355 9 RxNorm do not give d/t couma anh Vidal [facility], L.L.CJosue 4 13:34:33 39883 diltiazem hydrochlo ride medicatio n Not available Not available Not available 05/26/2023 15519 1 RxNorm Comme nt: Recor ded 12/29 7:56A M by Israel Kitchen on, HYDRO TECHNICIAN, 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 ; Promo talib; Trey bernal ce: *; Reaso n: Drug aller gy; ; [facility] 3 12:26:44 07812 morphine sulfate medicatio n Not available Not available Not available 05/26/2023 53975 RxNorm Comme nt: Recor ded 12/29 7:56A M by Israel Kitchen on, HYDRO TECHNICIAN, 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 ; Debra mayers; Trey bernal ce: *; Reaso n: Drug aller gy; ; FELISHA DESIR [facility] 3 12:26:48 Medications Name Sig Start Date [...] by Felisha Desir LPN (Authori pushpad through Danny Marmolejo MD), Refill Request; Refill Quantity : [...] by Felisha Desir LPN (Authori candelario through Danny Marmolejo MD), Refill Request; Refill Quantity : [...] by Dotty Larry RN (Authori candelario through Danny Marmolejo MD), Refill Request; Refill Quantity : 30; Capsule; Not Available Not Available Not Available furosemid e daily 06/08 completed 436; Recorded 01/02/20 23 3:43PM by Felisha Desir LPN (Authori zed through Danny Marmolejo MD), Refill Request; Refill Quantity : 30; Tablet; Not Available Not Available Not Available fiber 06/08 completed Not Available Not Available Not Available [facility] Levothyro xine Sodium daily 06/08 completed 55429; Recorded 01/09/20 6:06PM by Shirley Quevedo (Authori candelario through Travis Sousa MD), Refill Request; Refill Quantity : 30; Tablet; Not Available Not Available Not Available galantami ne 04/17 completed Not Available Not Available Not Available Potassium Chloride ER twice daily 06/08 completed 436; Recorded 03/13/20 22 3:22PM by Felisha Desir LPN (Jacki palomino through Danny Marmolejo MD), Refill Request; Refill Quantity : [...] weight Body temperature Heart rate Oxygen saturation Systolic And Diastolic Provider Name and Address Organization Details Last Updated DateTime 154.94 cm 28.9 kg/m2 01329.6 3 g 97.6 [degF] 76 /min 95 % 138/84 mm[Hg] Dotty Celis [facility]C. 13:43:55 Social History Question Answer Notes LastModified by AOL Details LastModified Time Tobacco Smoking Status Former Smoker FELISHA hamilton, [facility] 04/17/2023 14:48:01 What Was The Date Of Your Most Recent Tobacco Screening? 05/27/2025 [email or web address] Information not available 05/27/2025 Sex: Unknown Functional Status Question Answer Note LastModified by AOL Details LastModified Time Do you use any illicit or recreational drugs? No Information not available 04/17/2023 Do you or have you ever used any other forms of tobacco or nicotine? No [email or web address] Information not available 06/29/2023 What is your level of alcohol consumption? None [email or web address] Information not available 04/17/2023 Mental Status None [...] MDCK, quadrivalent, PF 2 completed FELISHA hamilton, [facility] 10/10/2024 08:38:58 COVID-19, mRNA, LNP-S, PF, 100 mcg/0.5mL dose or 50 mcg/0.25mL dose 1 completed FELISHA hamilton [facility] 10/10/2024 08:38:58 COVID-19, mRNA, LNP-S, PF, 100 mcg/0.5mL dose or 50 mcg/0.25mL dose 1 completed FELISHA hamilton, [facility] 10/10/2024 08:38:58 COVID-19, mRNA, LNP-S, PF, 100 mcg/0.5mL dose or 50 mcg/0.25mL dose 2 completed FELISHA hamilton [facility] 10/10/2024 08:38:58 Pneumococcal conjugate PCV20, polysaccharide SDX814 conjugate, adjuvant, PF 3 completed FELISHA hamilton, [facility] 10/10/2024 08:38:58 COVID-19, mRNA, LNP-S, bivalent, PF, 50 mcg/0.5 mL or 25mcg/0.25 mL dose 3 completed FELISHA hamilton [facility] 10/10/2024 08:38:58 pneumococcal polysaccharide PPV23 3 completed FELISHA DESIR null, [facility] 04/17/2023 12:02:00 Tdap 1 completed FELISHA DESIR null, [facility] 10/10/2024 08:38:58 Influenza, split virus, trivalent, PF 3 completed FELISHA DESIR null, [facility] 04/17/2023 12:02:00 influenza, split (incl. purified surface antigen) 0 completed FELISHA DESIR null, [facility] 04/17/2023 12:02:00 Hep A, adult 1 [facility] 10/10/2024 08:38:58 Hep A, adult [...] pneumococcal polysaccharide PPV23 8 completed Lola hamilton, [facility] 07/02/2024 08:41:52 Influenza, split virus, quadrivalent, PF 8 completed Lola hamilton, [facility] 07/02/2024 08:41:52 zoster recombinant 3 completed Lola hamilton, [facility] 07/02/2024 14:52:40 COVID-19, mRNA, LNP-S, PF, 50 mcg/0.5 mL 4 completed FELISHA hamilton, [facility] 10/10/2024 08:38:58 Influenza, MDCK, trivalent, preservative 4 completed FELISHA hamilton, [facility] 10/10/2024 08:38:58 Past Encounters Encounter ID Performer Location Encounter Start Date Encounter Closed Date Diagnosis/Indication Diagnosis SNOMED-CT Code Diagnosis ICD10 Code Diagnosis IMO Codes Diagnosis Note [id number] Danny Marmolejo MD [facility] ([facility]) [address] [place] [address] 74575-[address] 5 02/07/2023 10:19:57 02/14/2023 10:45:49 Strain of thoracic region 48820642 S29.019A use your prn pain mediation. call if worsening. [id number] Danny Marmolejo MD [facility] ([facility]) [address] [place] [address] [phone] 5 02/14/2023 10:43:17 02/15/2023 17:26:16 Chronic low back pain 029593646 M54.50 [id number] Constantino Merlos DO [facility] ([facility]) [address] [place] [address] [phone] 5 02/21/2023 09:19:45 02/21/2023 11:05:37 Nasal congestion 70619553 R09.81 Acute sinusitis 99746304 J01.90 1 wk of symtoms, wrosening for last 3 days. covid and flu A and B negative today. will start abx due to comorbidit ies and wornseing symptoms. Return to office with no improvemen t or any problems. Go to ER with severe worsening or severe problems. [id number] Danny Marmolejo MD [facility] ([facility]) [address] [place] [address] [phone] 5 04/17/2023 08:30:45 04/26/2023 09:32:24 Diabetes mellitus 38956798 E11.59 Hypothyroidism 75598906 E03.9 Female uri nary stress incontinence 07571182 N39.3 Not interested in surgical management at this time Frail elderly 715901504 R54 Need for [facility] care assistance [phone] 7745266 Z74.1 Dementia 57805204 F03.90 Coronary atherosclerosis 433619769 I25.705 [id number] Danny Marmolejo MD [facility] ([facility]) [address] [place] [address] 13544-776 5 06/08/2023 12:20:01 06/08/2023 13:17:48 Neck pain 40587861 M54.2 [id number] Danny Marmolejo MD [facility] ([facility]) [address] [place] [address] 55034-555 5 06/29/2023 08:43:26 07/09/2023 14:07:10 Benign essential hypertension 0889948 I10 Atrial fibrillation 4943 6004 I48.91 Hypothyroidism 24603198 E03.9 Coronary atherosclerosis 922399431 I25.823 [id number] Danny Marmolejo MD [facility] ([facility]) [address] [place] [address] [phone] 5 07/17/2023 15:47:18 08/01/2023 10:19:07 [id number] Danny Marmolejo MD [facility] ([facility]) [address] [place] [address] [id number] 5 07/18/2023 11:59:39 07/18/2023 15:46:29 Pruritic rash 71875405 L28.2 patch rash with scale left upper lateral backshe has no other rash patch etcfavorin g psoriasis. Acquired scoliosis 06139 6001 M41.9 [id number] Danny Marmolejo MD [facility] ([facility]) [address] [place] [address] [phone] 5 08/27/2023 13:38:26 09/03/2023 15:02:50 Atrial fibrillation 25295432 I48.91 [id number] Danny Marmolejo MD [facility] ([facility]) [address] [place] [address] 12667-895 5 08/29/2023 11:48:52 08/29/2023 13:03:23 Hypothyroidism 12547601 E03.9 Type 2 brenda betes mellitus 32197161 E11.9 [id number] Danny Marmolejo MD [facility] ([facility]) [address] [place] [address] [phone] 5 09/25/2023 14:58:13 10/01/2023 11:08:35 Atrial fibrillation 99741030 I48.91 [id number] Danny Marmolejo MD [facility] ([facility]) [address] [place] [address] 56240-863 5 09/28/2023 08:22:55 10/03/2023 10:36:00 Atrial fibrillation 07443268 I48.91 Hyperlipidemia 13592546 E78.00 Hypothyroidism 22217224 E03.9 Type 2 brenda betes mellitus 48600264 E11.9 Esophageal dysphagia 408 33211 R13.19 Cough 06797518 R05.9 [id number] Danny Marmolejo MD [facility] ([facility]) [address] [place] [address] [id number] 5 10/12/2023 09:31:01 10/12/2023 10:18:44 Benign essential hypertension 6671131 I10 [id number] SHARON GARZON [facility] ([facility]) [address] [place] [address] [phone] 5 10/12/2023 13:42:39 10/18/2023 12:21:01 Dysuria 42232920 R30.0 Acute urin nhung tract infection 079385864 N39.0 [id number] Danny Marmolejo MD [facility] ([facility]) [address] [place] [address] [id number] 5 11/02/2023 11:29:05 11/06/2023 09:48:39 Atrial fibrillation 67510620 I48.91 [id number] Danny Marmolejo MD [facility] ([facility]) [address] [place], [place] [address] 5 11/07/2023 09:01:58 11/07/2023 11:07:24 Dementia 98308227 F03.90 Atrial fibrillation 4943 6004 I48.91 Coronary atherosclerosis 376368846 I25.119 Hypothyroidism 67488735 E03.9 Hyperlipidemia 76755848 E78.00 Depressive disorder 3548 9007 F32.A will need med adjustment most likely. awaiting more info Benign ess ential hypertension 6709589 I10 Need for [facility] care assistance [phone] 3027900 Z74.1 Moderate r ecurrent major depression 16084829 F33.1 Acute uppe r respiratory infection 25865061 J06.9 Acute bronchitis 2965701 2 J20.9 Mixed anxi ety and depressive disorder 846347844 F41.8 [id number] Danny Marmolejo MD [facility] ([facility]) [address] [place] [address] 93474-697 5 11/15/2023 14:44:57 11/19/2023 07:33:27 Atrial fibrillation 21966141 I48.91 [id number] Danny Marmolejo MD [facility] ([facility]) [address] [place] [address] [id number] 5 11/20/2023 09:33:11 11/21/2023 13:21:39 Atrial fibrillation 41337495 I48.91 [id number] Danny Marmolejo MD [facility] ([facility]) [address] [place] [address] 83749-642 5 11/27/2023 13:33:40 11/27/2023 14:57:35 Atrial fibrillation 03591344 I48.91 [id number] Danny Marmolejo MD [facility] ([facility]) [address] [place] [address] 84331-757 5 12/11/2023 10:07:28 12/14/2023 15:19:27 Atrial fibrillation 28171263 I48.91 [id number] Danny Marmolejo MD [facility] ([facility]) [address] [place] [address] 43647-991 5 12/25/2023 15:15:19 12/27/2023 12:08:25 Atrial fibrillation 93567875 I48.91 [id number] Danny Marmolejo MD [facility] ([facility]) [address] [place] [address] 14017-051 5 12/28/2023 08:26:17 01/01/2024 08:43:00 Atrial fibrillation 96133634 I48.91 Hyperlipidemia 16311131 E78.00 Hypothyroidism 86168823 E03.9 History of mechanical prosthetic mitral valve replacement 421456598 Z95.2 Frail elderly 523939904 R54 Need for [facility] care assistance [id number] 7022685 Z74.1 [id number] Danny Marmolejo MD [facility] ([facility]) [address] [place] [address] 09005-481 5 01/04/2024 10:25:22 01/09/2024 06:41:29 Atrial fibrillation 54644551 I48.91 [id number] LIA HERNANDEZ APRN [facility] ([facility]) [address] [place], [place] [address] 01/15/2024 12:59:04 01/16/2024 11:43:55 Dysuria 49431870 R30.0 Urine will be sent for culture Low back pain 308719144 M54.50 Instructed on exercises. Follow up for worsening [id number] Danny Marmolejo MD [facility] ([facility]) [address] [place] [address] [id number] 5 01/25/2024 10:56:45 01/28/2024 07:51:23 Atrial fibrillation 40063299 I48.91 [id number] Danny Marmolejo MD [facility] ([facility]) [address] [place] [address] 05179-292 5 01/28/2024 13:26:01 01/28/2024 15:49:26 Cough 80576992 R05.9 Lightheadedness 56131183 8 R42 Atrial fibrillation 4943 6004 I48.91 History of mechanical prosthetic mitral valve replacement 049215475 Z95.2 Dementia 16721118 F03.90 [id number] Danny Marmolejo MD [facility] ([facility]) [address] [place] [address] 33276-388 5 02/13/2024 12:03:53 02/15/2024 09:32:04 Dysuria 84178380 R30.0 [id number] Danny Marmolejo MD [facility] ([facility]) [address] [place] [address] [id number] 5 02/13/2024 12:14:40 02/15/2024 11:11:53 Hyperlipidemia 65430567 E78.00 Dysuria 39956937 R30.0 Impaired mobility 527848 05 Z74.09 [id number] Danny Marmolejo MD [facility] ([facility]) [address] [place] [address] 96893-612 5 03/25/2024 12:47:12 03/28/2024 07:11:51 Atrial fibrillation 64987453 I48.91 [id number] Danny Marmolejo MD [facility]) [address] [place] [address] [id number] 5 03/25/2024 13:02:42 03/25/2024 14:26:32 Dysuria 55690935 R30.0 urine dip is normal will await micro. [id number] Danny Marmolejo MD [facility] ([facility]) [address] [place] [address] 75460-228 5 04/04/2024 08:10:41 04/09/2024 09:06:52 Atrial fibrillation 16534615 I48.91 Depressive disorder 9377 9007 F32.A will need med adjustment most likely. awaiting more info Hyperlipidemia 28055884 E78.00 Hypothyroidism 71042322 E03.9 Dementia 34614655 F03.90 stable and without worrisome behaviors/ intrusive fears etc. [id number] Danny Marmolejo MD [facility] ([facility]) [address] [place] [address] [id number] 5 04/17/2024 11:27:00 05/14/2024 13:15:51 Atrial fibrillation 20309214 I48.91 [id number] Danny Marmolejo MD [facility] ([facility]) [address] [place] [address] [id number] 5 05/19/2024 12:53:57 05/21/2024 22:28:15 Atrial fibrillation 29238663 I48.91 [id number] Danny Marmolejo MD [facility] ([facility]) [address] [place] [address] [id number] 5 05/19/2024 13:28:05 05/20/2024 17:37:09 Constipation 14540473 K59.00 [id number] Danny Marmolejo MD [facility] ([facility]) [address] [place] [address] 17914-036 5 05/22/2024 13:52:36 05/26/2024 08:53:22 Atrial fibrillation 17961737 I48.91 [id number] Danny Marmolejo MD [facility] ([facility]) [address] [place] [address] 35137-447 5 05/27/2024 10:13:03 05/27/2024 15:56:07 Atrial fibrillation 79543320 I48.91 warfarin has been held for i bleeding will recheck today. History of mechanical prosthetic mitral valve replacement 836012024 Z95.2 Melena 4629807 K92.1 has resoled since holding warfarin [id number] Danny Marmolejo MD [facility] ([facility]) [address] [place] [address] [id number] 5 06/09/2024 14:51:03 06/11/2024 12:46:51 Atrial fibrillation 96353945 I48.91 warfarin has been held for i bleeding will recheck today. [id number] Danny Marmolejo MD [facility] ([facility]) [address] [place] [address] 07412-817 5 07/04/2024 08:21:57 07/07/2024 13:50:59 Anxiety 21694337 F41.9 Depressive disorder 3548 9007 F32.A Hypothyroidism 23870627 E03.9 Chronic low back pain 27 6575408 M54.50 [id number] Danny Marmolejo MD [facility] ([facility]) [address] [place] [address] 05760-445 5 08/07/2024 09:44:31 08/07/2024 13:32:53 Iron deficiency anemia 43494819 D50.9 Hypothyroidism 63543701 E03.9 Type 2 brenda betes mellitus 81681185 E11.9 Atrial fibrillation 4943 6004 I48.91 warfarin has been held for i bleeding will recheck today. [id number] Danny Marmolejo MD [facility] ([facility]) [address] [place] [address] [id number] 5 08/14/2024 13:17:46 08/14/2024 13:53:26 Right flank pain 149530253 R10.9 has greatly improved. will inquire about her bm frequency. [id number] Danny Marmolejo MD [facility] ([facility]) [address] [place] [address] 77542-852 5 08/15/2024 14:56:42 08/16/2024 23:09:29 Atrial fibrillation 06838271 I48.91 warfarin has been held for i bleeding will recheck today. [id number] Danny Marmolejo MD [facility] ([facility]) [address] [place] [address] [id number] 5 09/05/2024 15:29:03 09/08/2024 14:47:15 Atrial fibrillation 69983019 I48.91 warfarin has been held for i bleeding will recheck today. [id number] Danny Marmolejo MD [facility] ([facility]) [address] [place] [address] 36309-082 5 09/22/2024 13:56:04 09/24/2024 23:01:26 Atrial fibrillation 90037887 I48.91 warfarin has been held for i bleeding will recheck today. [id number] Danny Marmolejo MD [facility] ([facility]) [address] [place] [address] 64224-145 5 10/02/2024 09:54:39 10/04/2024 06:10:42 Atrial fibrillation 59005124 I48.91 warfarin has been held for i bleeding will recheck today. [id number] Constantino Merlos DO [facility] ([facility]) [address] [place] [address] [id number] 5 10/06/2024 15:26:43 10/06/2024 16:30:28 Dysuria 11870991 R30.0 Acute urin nhung tract infection 909653749 N39.0 I reviewed UA results and discussed with pt. We will start antibiotic s. Pt will increase oral fluids and can use cranberry. Return to office with no improvemen t or any problems. Go to ER with severe worsening or severe problems.W e will obtain urine culture [id number] Danny Marmolejo MD [facility] ([facility]) [address] [place] [address] [id number] 5 10/10/2024 08:00:57 10/27/2024 13:21:20 Anxiety 15878864 F41.9 Atrial fibrillation 4943 6004 I48.91 warfarin therapy Hyperlipidemia 10380264 E78.00 Hypothyroidism 14842587 E03.9 Disorder o f vitamin B12 553293035 E53.8 [id number] Danny Marmolejo MD [facility] ([facility]) [address] [place] [address] [id number] 5 10/28/2024 12:52:20 10/30/2024 11:20:46 Abdominal pain 15723213 R10.9 Chronic constipation 236 825362 K59.09 Warfarin m onitoring status 695622661 Z51.81 Vitamin B1 2 deficiency (non anemic) 41942054 E53.8 Iron deficiency 20451601 E61.1 [id number] Danny Marmolejo MD [facility] ([facility]) [address] [place] [address] 47606-051 5 11/11/2024 09:45:45 11/11/2024 10:22:04 Fever 759389558 R50.9 COVID-19 663911597 U07.1 [id number] Danny Marmolejo MD [facility] ([facility]) [address] [place] [address] 93651-978 5 11/13/2024 14:46:08 11/14/2024 12:19:12 History of mechanical prosthetic mitral valve replacement 351338801 Z95.2 [id number] Danny Marmolejo MD [facility] ([facility]) [address] [place] [address] 71062-852 5 12/26/2024 14:59:56 12/29/2024 13:20:48 Atrial fibrillation 01798693 I48.91 warfarin therapy [id number] Danny Marmolejo MD [facility] ([facility]) [address] [place] [address] 22868-597 5 01/02/2025 07:55:44 01/02/2025 16:44:05 Anxiety 99065296 F41.9 Atrial fibrillation 4943 6004 I48.91 warfarin therapy Benign ess ential hypertension 3739018 I10 Dementia 72491678 F03.90 stable and without worrisome behaviors/ intrusive fears etc. Frail elderly 436326871 R54 Hypothyroidism 13608829 E03.9 Moderate r ecurrent major depression 82072086 F33.1 Need for [facility] care assistance [id number] 6276958 Z74.1 Hyperlipidemia 70744870 E78.00 Gastroesop hageal reflux disease 862510723 K21.9 Constipation 64880727 K5 9.00 Disorder o f vitamin B12 991382646 E53.8 b-12 lab with next blood draw [id number] SHARON WICK [facility] ([facility]) [address] [place] [address] 5 01/07/2025 11:17:05 01/07/2025 12:46:26 Gastroesophageal reflux disease 050602238 K21.9 Return to BID dosing of pantoprazo le. Avoid all tomato based foods, carbonated drinks. Follow up with PCP. RTC with any new or worsening symptoms. 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 [id number] Danny Marmolejo MD [facility] ([facility]) [address] [place] [address] 5 02/17/2025 12:58:21 03/09/2025 14:31:11 Dysuria 96690705 R30.0 57021 Black feces 149573606 K9 2.1 960767 d/c pepto bismol Epigastric pain 62272460 R10.13 49486 History of Helicobacter pylori infection 3977492951 0441855 Z86.19 2395612 [id number] Danny Marmolejo MD [facility] ([facility]) [address] [place], [place] 8[address]25[address]204 5 03/10/2025 13:39:29 03/11/2025 10:21:30 Atrial fibrillation 84277310 I48.91 warfarin therapy [id number] Danny Marmolejo MD [facility] ([facility]) [address] [place] [address] 5 03/16/2025 11:42:25 03/16/2025 15:49:30 Mean corpuscular volume above reference range [id number] R71.8 [id number] Danny Marmolejo MD [facility] ([facility]) [address] [place] [address] 5 04/03/2025 08:43:13 04/07/2025 07:54:01 Atrial fibrillation 17688998 I48.91 warfarin therapy Benign ess ential hypertension 7494624 I10 Hyperlipidemia 95975686 E78.00 Hypothyroidism 39218553 E03.9 Iron defic iency anemia 20128733 D50.9 Difficulty walking 87351 2003 R26.2 19576 Does mobil ize using walker 568394424 Z99.89 [id number] Danny Marmolejo MD [facility] ([facility]) [address] [place], [place] [phone] 5 05/07/2025 11:08:19 05/08/2025 11:02:05 Atrial fibrillation 35035723 I48.91 warfarin therapy [id number] Danny Marmolejo MD [facility] ([facility]) [address] [place] [address]-720 5 05/18/2025 13:36:52 05/19/2025 13:07:58 Atrial fibrillation 91909013 I48.91 warfarin therapy [id number] SHARON HARDIN [facility] ([facility]) [address] [place] [address] 34535-559 5 05/27/2025 10:23:37 05/27/2025 11:20:20 Abdominal mass 533074555 R19.00 [id number] Sent to ER for CT scan to r/o strangulat ed hernia to right inguinal region. Licensed Occupational Therapist heena mena pt. [id number] Danny Marmolejo MD [facility] ([facility]) [address] [place] [address] 57890-298 5 06/05/2025 11:28:33 06/08/2025 12:35:39 Hypothyroidism 13940613 E03.9 Viral screening 52497623 4 Z11.59 0494927 Physical examination 588 0005 Z00.00 392854 Long-term current use of drug therapy 949039955 Z79.249 5143814 [id number] Danny Marmolejo MD [facility] ([facility]) [address] [place], [place] [phone] 06/11/2025 10:52:49 06/12/2025 12:43:36 Hypercalcemia 10751919 E83.52 [id number] Danny Marmolejo MD [facility] ([facility]) [address] [place], [place] [phone] 06/24/2025 12:18:01 06/30/2025 13:41:59 Hyperparathyroidism 76370564 E21.3 59505 corrected and ionized calcium are normalgfr 52 and stable Vitamin D deficiency 347 02671 E55.9 61900 [id number] Danny Marmolejo MD [facility] ([facility]) [address] [place] [address] 51665-699 5 07/01/2025 10:24:23 07/02/2025 11:29:38 Atrial fibrillation 85010953 I48.91 warfarin therapy [id number] Danny Marmolejo MD [facility] ([facility]) [address] [place] [address] 87[address]-829 5 07/03/2025 08:14:55 07/13/2025 10:06:37 Benign essential hypertension 5883182 I10 Coronary atherosclerosis 035961851 I25.119 Atrial fibrillation 4943 6004 I48.91 warfarin therapyd/c naproxen d/t hx of bleeding Hyperlipidemia 74830458 E78.00 Hypothyroidism 52256103 E03.9 Hyperparathyroidism 6699 9008 E21.3 89369 [id number] Danny Marmolejo MD [facility] ([facility]) [address] [place] [address] 35568-945 5 07/06/2025 11:22:40 07/07/2025 09:33:46 History of mechanical prosthetic mitral valve replacement 019455802 Z95.2 [id number] Danny Marmolejo MD [facility] ([facility]) [address] [place] [address] [phone] 5 07/09/2025 13:42:58 07/10/2025 14:24:59 Atrial fibrillation 04017858 I48.91 warfarin therapyd/c naproxen d/t hx of bleeding [id number] Danny Marmolejo MD [facility] ([facility]) [address] [place] [address] 01525-564 5 07/14/2025 13:52:08 07/15/2025 10:22:44 Dysuria 92471193 R30.0 84856 will call with ua results [id number] Danny Marmolejo MD [facility] ([facility]) [address] [place], [place] [phone] 5 07/16/2025 12:05:46 07/17/2025 11:01:38 Atrial fibrillation 69143375 I48.91 warfarin therapyd/c naproxen d/t hx of bleeding [id number] Danny Marmolejo MD [facility] ([facility]) [address] [place] [address] [phone] 5 07/23/2025 11:35:38 07/24/2025 12:08:17 Atrial fibrillation 13462213 I48.91 warfarin therapyd/c naproxen d/t hx of bleeding [id number] Danny Marmolejo MD [facility] ([facility]) [address] [place] [address] [phone] 5 07/30/2025 11:32:37 07/31/2025 09:44:15 History of mechanical prosthetic mitral valve replacement 105617775 Z95.2 [id number] Danny Marmolejo MD [facility] ([facility]) [address] [place] [address] 33957-151 5 08/04/2025 10:06:02 08/04/2025 15:14:44 Right cervical root neuropathy 0418440426 6273885 M54.12 81214868 Pain of ri [facility] shoulder region 0284017945 M25.511 [id number] Danny Marmolejo MD [facility] ([facility]) [address] [place] [address] 57461-618 5 08/07/2025 11:39:45 08/10/2025 10:28:08 Atrial fibrillation 40122992 I48.91 warfarin therapyd/c naproxen d/t hx of bleeding [id number] Danny Marmolejo MD [facility] ([facility]) [address] [place] [address] 90029-657 5 08/17/2025 13:17:17 08/18/2025 09:51:22 History of mechanical prosthetic mitral valve replacement 422612409 Z95.2 Mean corpu scular volume above reference range 050408269 R71.8 179486 Hypercalcemia 76650318 E 83.52 9955 Drug therapy finding 309 633482 Z79.899 01693731 Generalize d anxiety disorder 60692366 F41.1 110642 [id number] Danny Marmolejo MD [facility] ([facility]) [address] [place] [address] 68360-931 5 09/02/2025 13:16:47 09/03/2025 10:16:00 History of mechanical prosthetic mitral valve replacement 400914335 Z95.2 [id number] Danny Marmolejo MD [facility] ([facility]) [address] [place] [address] [phone] 5 09/09/2025 09:58:14 09/10/2025 09:52:18 Benign essential hypertension 2385483 I10 [id number] Danny Marmolejo MD [facility] ([facility]) [address] [place] [address] 96277-019 5 09/17/2025 13:22:57 09/18/2025 10:36:49 Atrial fibrillation 24295937 I48.91 warfarin therapyd/c naproxen d/t hx of bleeding Health Concerns Section Related Observation LastModified by Organization Detai ls LastModified Time None Recorded Concern Status LastModified by Organization Details LastModified Time None Recorded Advance Directives Directive None Recorded Payers Insurance Date Sequence Insurance Name Policy Number Policy Hernandez Covered Member ID Hernandez Member ID Guarantor Name 09/02/2025 [place] [facility] [place] Odilia Ulloa [id number] Odilia Ulloa 09/02/2025 2 [place] Odilia Ulloa [id number] Odilia Ulloa 09/17/2025 1 [place] - [place] [id number] Odilia Ulloa [id number] Odilia Ulloa Notes Date Note Type Note Provider Name and Address Organization Details Recorded Time 08/17/2025 text/html Pt is here for a hospital f/u. She was in the ER twice recently with chest pain and shortness of breath. Cardiac workup normal. 176/113 was her BP at the house when they took her to the ER. At a prior visit they said her valve condition had declined. She has been using her nitro pretty often at home. She states she feels tired and low on fuel. Danny Marmolejo MD [address] [place] [address], [phone], [facility], [email or web address] 08/17/2025 14:48:51 OBGyn Episode No OBEpisode recorded.
--- OUTSIDE RECORDS SUMMARY | 2025-09-19 05:39 | XMS_ITS | Encounter Summary ---
Author Organization [facility] Address [address] [place] [address] Care Team Providers Care Drop Worker Name Role Phone Rico Muñiz MD, Sharan Jaime Primary Care Provider Encounter Details Date Type Department Care Team (Latest Contact Info) Description 08/06/2006 Outpatient Historical [facility] Int Luis AFaisal Lopez [address] [place] [id number] Serge Arrington MD [address] [place] [address] Mitral Valve Disorder (Primary Dx); Other and Unspecified Hyperlipidemia; Screening for Malignant Neoplasm of the Cervix Social History Tobacco Use Types Packs/Day Years Used Date Smoking Tobacco: Never Assessed Comments Unknown Sex and Gender Information Value Date Recorded Sex Assigned at Not on file 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
--- OUTSIDE RECORDS SUMMARY | 2025-09-19 05:39 | XMS_ITS | Continuity of Care Document ---
Author Organization [facility] ([facility] Address [address] [place] [address] Care Team Providers Care Gravure Press Operator Name Role Phone LYN MARMOLEJO Primary Care Provider [phone] Assessment No assessment recorded. Plan of Treatment Reminders Order Date Submit Date Provider Last Modified By Organization Details Last Modified Time Details Appointments None recorded. Lab None recorded. Referral None recorded. Procedures None recorded. Surgeries None recorded. Imaging XR, cervical spine, 2 or 3 view - flexion/ex tension views [address]), [address] [place], [address], 15:14:44 XR, shoulder, 2 or more view [address]), [address] [place], [address], 15:14:44 Medication Orders Medrol (Chema) 4 mg tablets in a dose pack 2024 [facility], [address] [place] [address], [address], 14:26:13 Patient TargetsNo targets recorded. Patient InstructionsNo instructions recorded. Reason for Referral None Reported. Results Created Date Observation Date Name Description Value Unit Range Abnormal Flag Note LastModifiedBy Organization Detail LastModifiedTime 07/06/2007/06/2025 PT/IN R Protime 39.5 Not Available [facility] ([facility]) [address] [place], [address], 07/06/2025 11:23:26 07/06/20 25 07/06/2025 PT/IN R INR 3.3 Not Available [facility] ([facility]) [address] [place], [address], 07/06/2025 11:23:26 07/09/20 25 07/09/2025 PT/IN R Protime 34.6 Not Available [facility] ([facility]) [address] [place], [address], 07/09/2025 13:44:17 07/09/20 25 07/09/2025 PT/IN R INR 2.9 Not Available [facility] ([facility]) [address] [place], [address], 07/09/2025 13:44:17 07/14/20 25 07/14/2025 URINA LYSIS WITH MICRO color YELLOW Not Available [facility] [address] [address], [place], [address], 07/14/2025 14:52:32 07/14/20 25 07/14/2025 URINA LYSIS WITH MICRO clarity CLEAR Not Available [facility] [address] [facility] [address], [address], 07/14/2025 14:52:32 07/14/20 25 07/14/2025 URINA LYSIS WITH MICRO glu NEGATI VE Not Available [facility] [address] [facility] [address], [address], 07/14/2025 14:52:32 07/14/20 25 07/14/2025 URINA LYSIS WITH MICRO bili NEGATI VE Not Available [facility] [address], [place], [address], 07/14/2025 14:52:32 07/14/20 25 07/14/2025 URINA LYSIS WITH MICRO ket NEGATI VE Not Available [facility] [address], [place], [address], 07/14/2025 14:52:32 07/14/20 25 07/14/2025 URINA LYSIS WITH MICRO S.g 1.010 1.005- 1.025 Not Available [facility] [address], [place], [address], 07/14/2025 14:52:32 07/14/20 25 07/14/2025 URINA LYSIS WITH MICRO pH 5.0 5.0-7. 0 Not Available [facility] [address], [place], [address], 07/14/2025 14:52:32 07/14/20 25 07/14/2025 URINA LYSIS WITH MICRO pro NEGATI VE Not Available [facility] [address], [place], [address], 07/14/2025 14:52:32 07/14/20 25 07/14/2025 URINA LYSIS WITH MICRO uro 0.2 E.U./D L Not Available [facility] [address], [place], [address], 07/14/2025 14:52:32 07/14/20 25 07/14/2025 URINA LYSIS WITH MICRO nit NEGATI VE Not Available [facility] [address], [place], [address], 07/14/2025 14:52:32 07/14/20 25 07/14/2025 URINA LYSIS WITH MICRO blo NEGATI VE Not Available [facility] [address] [facility] [place], [address], 07/14/2025 14:52:32 07/14/20 25 07/14/2025 URINA LYSIS WITH MICRO jose elias NEGATI VE Not Available [facility] [address] [facility] [address], [place], [address], 07/14/2025 14:52:32 07/14/20 25 07/14/2025 URINA LYSIS WITH MICRO WBC 0-1 abnormal Not Available [facility] [address] [facility] [address], [place], [address], 07/14/2025 14:52:32 07/14/20 25 07/14/2025 URINA LYSIS WITH MICRO RBC NEGATI VE Not Available [facility] [address] [facility] [address], [place], [address], 07/14/2025 14:52:32 07/14/20 25 07/14/2025 URINA LYSIS WITH MICRO epi cells 1-2 abnormal Not Available [facility] [address] [facility] [address], [place], [address], 07/14/2025 14:52:32 07/14/20 25 07/14/2025 URINA LYSIS WITH MICRO bacteria 1-2 HYALIN E CAST abnormal Not Available [facility] [address] [facility] [address], [place], [address], 07/14/2025 14:52:32 07/14/20 25 07/14/2025 URINA LYSIS WITH MICRO other NEG Not Available [facility] [address] [facility] [address], [place], [address], 07/14/2025 14:52:32 07/14/20 25 07/16/2025 CULTU RE, URINE , ROUTI NE culture, urine, routine SEE NOTE CULTU RE, URINE , ROUTI NE Micro Numbe r: [id number] Test Statu s: Final Speci men Sourc e: Urine Speci men Quali ty: Adequ ate Resul t: No Growt h Not Available [facility] [address] [place], [address], 07/16/2025 02:51:13 07/17/2007/17/2025 PT/IN R Protime 34.4 Not Available [facility] ([facility]) [address] [place], [address], 07/16/2025 12:07:15 07/17/2007/17/2025 PT/IN R INR 2.9 Not Available [facility] ([facility]) [address] [place], [address], 07/16/2025 12:07:15 07/23/2007/23/2025 PT/IN R Protime 47.0 Not Available [facility] ([facility]) [address] [place], [address], 07/23/2025 11:36:06 07/23/2007/23/2025 PT/IN R INR 3.9 Not Available [facility] ([facility]) [address] [place], [address], 07/23/2025 11:36:06 07/30/2007/30/2025 PT/IN R Protime 30.2 Not Available [facility] ([facility]) [address] [place], [address], 07/30/2025 11:33:15 07/30/2007/30/2025 PT/IN R INR 2.5 Not Available [facility] ([facility]) [address] [place], [address], 07/30/2025 11:33:15 08/05/2008/04/2025 XR, cervi luisito spine , 2 or 3 view No observ ation record ed. [facility] [address] [place], [address], 08/07/2025 13:25:55 08/05/20 25 08/04/2025 XR, shoul vito, 2 or more view No observ ation record ed. [facility] [address] [place], [address], 08/07/2025 13:25:55 09/09/2009/08/2025 US, echoc ardio gram, trans thora cic, compl ete, w/ color flow No observ ation record ed. [facility] [address] [place], [address], 09/11/2025 09:19:21 09/15/2009/15/2025 MAMMO , scree ilya, digit al, bilat eral No observ ation record ed. [email or web address] [place] [address] [address] [place], [address], 09/16/2025 16:09:54 Result Notes None recorded. Problems Name Problem SNOMED Code Status Onset Date Resolution Date Notes Provider Name and Address Organization Details Recorded Time Depressi ve disorder 38706993 Completed 202010/14/2021 Depressi on - Status is Inactive ; 10/14/20 11:08AM by Maryellen Marmolejo PA-C, Annotati on/Adden dum; Promoted ; acuity set as *; FELISHA hamilton, [facility] 5 07:56:57 Herpes zoster 7878474 Completed 202201/02/2025 SHINGLES FELISHA hamilton, [facility] L.L.CJosue 07:56:03 Dysthymi a 91474299 Active 03/03/ 2023 DEPRESSI ON WITH ANXIETY FELISHA hamilton, [facility] 5 07:55:28 Benign essentia l hyperten jovanni 4493297 Active 2022 FELISHA DESIR null, [facility] 5 07:55:28 Gastroes ophageal reflux disease 379006147 Active 2022 FELISHA DESIR null, [facility] 5 07:55:28 Fracture of upper end of humerus 337305945 Completed 202201/02/2025 CLOSED FRACTURE OF PROXIMAL END OF RIGHT HUMERUS, SEQUELA FELISHA hamilton, [facility] 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 5 07:56:22 Atrial fibrilla tion 84270993 Active 2022 FELISHA hamilton, [facility] 3 14:45:05 Coronary atherosc lerosis 382398444 Active 2022 bare metal stents to circ and LAD 2011 FELISHA hamilton, [facility] 3 14:46:30 Iron deficien cy anemia 07932803 Active 2022 FELISHA hamilton, [facility] 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 3 14:45:59 Anxiety 41494192 Active 2022 FELISHA hamilton, [facility] 3 14:46:54 Viral hepatiti s C 11432669 Active 2022 FELISHA DESIR null, [facility] 5 07:55:28 Moderate recurren t major depressi on 65629487 Active 2023 FELISHA DESIR null, [facility] 5 07:55:28 Need for personal care assistan ce 77105783847 183340 Active 2023 FELISHA DESIR null, [facility] 5 07:55:28 Frail elderly 989277552 Active 2023 FELISHA DESIR null, [facility] 5 07:55:28 Seasonal allergic rhinitis 298374074 Active 2023 FELISHA DESIR null, [facility] 5 07:55:28 Chronic pain 52406004 Active 2023 FELISHA DESIR null, [facility] 5 07:55:28 Dementia 31774098 Active 2023 FELISHA DESIR null, [facility] 5 07:55:28 Constipa tion 70434022 Active 2023 FELISHA hamilton, [facility] 5 07:55:44 Hyperlip idemia 54154905 Active 2024 FELISHA DESIR null, [facility] 5 07:59:38 Occult blood detected in feces 66178875 Active 2024 FELISHA DESIR null, [facility] 5 09:13:35 Mean corpuscu lar volume above referenc e range 381249453 Active 2024 FELISHA hamilton, [facility] 5 09:14:07 Hypercal cemia 19494450 Active 2024 FELISHA hamilton [facility], [place] 5 10:07:49 Vitamin D deficien cy 27433860 Active 2024 Lyn Marmolejo MD [address] [place] [address], [address], [facility], [place] 5 12:54:55 Hyperpar athyroid ism 77788426 Active 2024 Lyn Marmolejo MD [address] [place] [address], [address], [facility], [place] 5 12:54:56 Dysuria 02165631 Active 2024 Dotty hamilton [facility], [place] 5 14:08:08 Problem Notes None recorded. Procedures Surgical History Date Name Laterality Status Provider Name and Address Organization Details Recorded Time 2024 Most Recent Mammogram completed FELISHA DESIR [facility], [place] 5 16:09:39 2024 esophagogastroduodenoscopy completed YANELIS DESIR [facility], [place] 5 12:23:16 2024 colonoscopy completed FELISHA DESIR [facility], ClariceLJosueCJosue 5 10:20:11 2023 esophagogastroduodenoscopy completed KIARA DUCKWORTH [facility], ClariceLDaisy 4 12:40:14 2023 colonoscopy completed Lyn Marmolejo MD [address] [place] [address], [address], [facility], [place]an 5 10:19:30 cholecystectomy completed FELISHA [facility] 3 14:48:40 replacement of mitral valve complete d FELISHA [facility] 3 14:49:22 section completed [facility] 3 15:14:43 Imaging Results None recorded. Procedure Notes None recorded. Medical Equipment None Reported. Allergies Allergen ID Allergen Name Allergen Category Reaction Reaction Severity Criticality Documentation Date Start Date Code Code System Note Provider Name and Address Organization Details Recorded Time 1376 morphine medicatio n Not available Not available Not available 02/07/2023 7052 RxNorm Dotty Celis [facility] 3 10:45:47 1377 diltiazem Not available Not available Not available Not available 02/07/2023 3443 RxNorm Dottylizzie Celis [facility] 3 10:45:54 4552 Bactrim medicatio n other severe high 04/17/2023 92148 9 RxNorm do not give d/t couma din Lola Vidal [facility] 4 13:34:33 93682 diltiazem hydrochlo ride medicatio n Not available Not available Not available 05/26/2023 72302 1 RxNorm Comme nt: Recor ded 12/29 7:56A M by Yanelis Kitchen on, ALLOCATIONS CLERK, 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 ; Promo atlib; Signi fican ce: *; Reaso n: Drug aller gy; ; FELISHA [facility] 3 12:26:44 33888 morphine sulfate medicatio n Not available Not available Not available 05/26/2023 45580 RxNorm Comme nt: Recor ded 12/29 7:56A M by Yanelis Kitchen on, ALLOCATIONS CLERK, 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 ; Promo talib; Signi fican ce: *; Reaso n: Drug aller gy; ; FELISHA DESIR [facility] 3 12:26:48 Medications Name Sig Start [...] THSC Levothyro xine Sodium daily 06/08 completed 74908; Recorded 01/09/20 6:06PM by Shirley Quevedo (Authori [...] Updated DateTime 5 154.94 cm 29.7 kg/m2 11776 g 97.6 [degF] 79 /min 94 % 126/84 mm[Hg] Dotty Celis [facility] 10:23:59 Social History Question Answer Notes LastModified by Organizat ion Details LastModified Time Tobacco Smoking Status Former Smoker FELISHA DESIR [facility] 04/17/2023 14:48:01 What Was The Date Of Your Most Recent Tobacco Screening? 05/27/2025 [email or web address] Information not available 05/27/2025 Sex: Unknown Functional Status Question Answer Note LastModified by Organizat ion Details LastModified Time Do you use any illicit or recreational drugs? No [email or web address] Information not available 04/17/2023 Do you or have you ever used any other forms of tobacco or nicotine? No [email or web address] Information not available 06/29/2023 What is your level of alcohol consumption? None [email or web address] Information not available 04/17/2023 Mental Status None [...] Influenza, MDCK, quadrivalent, PF 2 [facility] 10/10/2024 08:38:58 COVID-19, mRNA, LNP-S, PF, 100 mcg/0.5mL dose or 50 mcg/0.25mL dose 1 completed FELISHA hamilton [facility] 10/10/2024 08:38:58 COVID-19, mRNA, LNP-S, PF, 100 mcg/0.5mL dose or 50 mcg/0.25mL dose 1 completed FELISHA hamilton [facility] 10/10/2024 08:38:58 COVID-19, mRNA, LNP-S, PF, 100 mcg/0.5mL dose or 50 mcg/0.25mL dose 2 completed [facility] 10/10/2024 08:38:58 Pneumococcal conjugate PCV20, polysaccharide [id number] conjugate, adjuvant, PF 3 completed FELISHA hamilton [facility] 10/10/2024 08:38:58 COVID-19, mRNA, LNP-S, bivalent, PF, 50 mcg/0.5 mL or 25mcg/0.25 mL dose 3 completed FELISHA hamilton [facility] 10/10/2024 08:38:58 pneumococcal polysaccharide PPV23 3 completed FELISHA hamilton [facility] 04/17/2023 12:02:00 Tdap 1 completed FELISHA hamilton [facility] 10/10/2024 08:38:58 Influenza, split virus, trivalent, PF 3 completed FELISHA DESIR null, [facility] 04/17/2023 12:02:00 influenza, split (incl. purified surface antigen) 0 completed FELISHA DESIR null, [facility] 04/17/2023 12:02:00 Hep A, adult 1 completed FELISHA DESIR null, [facility] 10/10/2024 08:38:58 Hep A, adult 9 completed [facility] 10/10/2024 08:38:58 Influenza, split virus, quadrivalent, PF 1 completed FELISHA DESIR null, [facility] 10/10/2024 08:38:58 Influenza, split virus, quadrivalent, PF 9 completed FELISHA DESIR null, [facility] 10/10/2024 08:38:58 Influenza, MDCK, trivalent, PF 4 completed [facility] 10/10/2024 08:38:58 Influenza, MDCK, quadrivalent, preservative 3 completed FELISHA DESIR null, [facility] 10/10/2024 08:38:58 pneumococcal polysaccharide PPV23 8 completed Lola hamilton, [facility] 07/02/2024 08:41:52 Influenza, split virus, quadrivalent, PF 8 completed Lola hamilton, [facility] 07/02/2024 08:41:52 zoster recombinant 3 completed Lola Vidal null, [facility] 07/02/2024 14:52:40 COVID-19, mRNA, LNP-S, PF, 50 mcg/0.5 mL 4 completed FELISHA DESIR null, [facility] 10/10/2024 08:38:58 Influenza, MDCK, trivalent, preservative 4 completed FELISHA DESIR null, [facility] 10/10/2024 08:38:58 Past Encounters Encounter ID Performer Location Encounter Start Date Encounter Closed Date Diagnosis/Indication Diagnosis SNOMED-CT Code Diagnosis ICD10 Code Diagnosis IMO Codes Diagnosis Note [id number] Lyn Marmolejo MD [facility] ([facility]) [address] [place] [phone] 07/06/2025 11:22:40 07/07/2025 09:33:46 History of mechanical prosthetic mitral valve replacement 790783399 Z95.2 [id number] Lyn Marmolejo MD [facility] ([facility]) [address] [place] [address] 07/09/2025 13:42:58 07/10/2025 14:24:59 Atrial fibrillation 21718515 I48.91 warfarin therapyd/c naproxen d/t hx of bleeding [id number] Lyn Marmolejo MD [facility]) [address] [place] [phone] 07/14/2025 13:52:08 07/15/2025 10:22:44 Dysuria 48840971 R30.0 [id number] will call with ua results [id number] Lyn Marmolejo MD [facility]) [address] [place] [phone] 5 07/16/2025 12:05:46 07/17/2025 11:01:38 Atrial fibrillation 35054164 I48.91 warfarin therapyd/c naproxen d/t hx of bleeding [id number] Lyn Marmolejo MD [facility] ([facility]) [address] [place], [place] [address] 5 07/23/2025 11:35:38 07/24/2025 12:08:17 Atrial fibrillation 57263471 I48.91 warfarin therapyd/c naproxen d/t hx of bleeding [id number] Lyn Marmolejo MD [facility] ([facility]) [address] [place] [phone] 07/30/2025 11:32:37 07/31/2025 09:44:15 History of mechanical prosthetic mitral valve replacement 792014512 Z95.2 [id number] Lyn Marmolejo MD [facility] ([facility]) [address] [place] [address] 08/04/2025 10:06:02 08/04/2025 15:14:44 Right cervical root neuropathy 6045302152 2094689 M54.12 40154311 Pain of ri ght shoulder region 4234041255 M25.511 [id number] Health Concerns Section Related Observation LastModified by Organization Detai ls LastModified Time None Recorded Concern Status LastModified by Organization Details LastModified Time None Recorded Payers Encounter Date Sequence Insurance Name Policy Number Policy Hernandez Covered Member ID Hernandez Member ID Guarantor Name 08/04/2025 1 [id number]ANT[place] - PPO) [id number] Odilia Ulloa [id number] Odilia Ulloa 08/04/2025 2 [place] Odilia Ulloa [id number] Odilia Ulloa Notes Date Note Type Note [...] radiates down the arm Lyn Marmolejo MD [address] [place] [address], [phone], [facility] 08/04/2025 10:40:35 OBGyn Episode No OBEpisode recorded.
--- OUTSIDE RECORDS SUMMARY | 2025-09-19 05:39 | XMS_ITS | Encounter Summary ---
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
--- OUTSIDE RECORDS SUMMARY | 2025-09-19 05:40 | XMS_ITS | Encounter Summary ---
Author Organization [facility] Address [address] [place] [address] Care Team Providers Care Director Of Informatics Name Role Phone Rico Muñiz MD, Sharan Jaime Primary Care Provider Encounter Details Date Type Department Care Team (Latest Contact Info) Description 10/31/2001 Outpatient Historical [facility] Sharan Gómez Jr., MD [address] [place] [address] ATRIAL FIBRILLATION (CMS/HCC) (Primary Dx); [facility] ANTICOAG USE; HEART VALVE REPLAC NEC Social History Tobacco Use Types Packs/Day Years Used Date Smoking Tobacco: Never Assessed Comments Unknown Sex and Gender Information Value Date Recorded Sex Assigned at Not on file 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
--- OUTSIDE RECORDS SUMMARY | 2025-09-19 05:40 | XMS_ITS | Encounter Summary ---
Author Organization [facility] Address [address] [facility] Attn: [place] [address] Care Team Providers Care Respiratory Therapy Manager Name Role Phone Rico Muñiz MD, Sharan Jaime Primary Care Provider Encounter Details Date Type Department Care Team (Late st Contact Info) Description 05/16/2001 Outpatient Historical Sharan Gómez Jr., MD [address] [place] [address] Social History Tobacco Use Types Packs/Day Years Used Date Smoking Tobacco: Never Assessed Comments Unknown Sex and Gender Information Value Date Recorded Sex Assigned at Not on file Legal Sex Female 5:42 AM DIRECTOR STUDENT UNION Gender Identity Not on file Sexual Orientation Not on file documented as of this encounter Plan of Treatment Not on file documented as of this encounter Visit Diagnoses Not on filedocumented in this encounter Care Teams Respiratory Therapy Manager Relationship Specialty Start Date End Date Sharan Gómez Jr., MD [address] [place] [address] PCP - General 08/10/05 documented as of this encounter
--- OUTSIDE RECORDS SUMMARY | 2025-09-19 05:40 | XMS_ITS | Encounter Summary ---
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
--- OUTSIDE RECORDS SUMMARY | 2025-09-19 05:40 | XMS_ITS | Continuity of Care Document ---
Author Organization [facility] [place], [facility] ([facility]) Address [address] [place] [address] Care Team Providers Care Hogshead Packer Name Role Phone LYN MARMOLEJO Primary Care Provider Assessment No assessment recorded. Plan of Treatment Reminders Order Date Submit Date Provider Last Modified By Organization Details Last Modified Time Details Appointments None record ed. Lab PT/INR 025 09/02/20 [facility]), [address] [place], [address], 13:34:27 Referral None record ed. Procedures None record ed. Surgeries None record ed. Imaging None record ed. Medication Orders None record ed. Patient TargetsNo targets recorded. Patient InstructionsNo instructions recorded. Reason for Referral None Reported. Results Created Date Observation Date Name Description Value Unit Range Abnormal Flag Note LastModifiedBy Organization Detail LastModifiedTime 08/07/2008/07/2025 PT/IN R Protime 26.3 Not Available [facility]) [address] [place], [address], 08/07/2025 11:40:14 08/07/20 25 08/07/2025 PT/IN R INR 2.2 Not Available [facility] ([facility]) [address] [place], [address], 08/07/2025 11:40:14 10/2008/17/2025 CBC WBC 6.3 x10 4.0-10 .5 Not Available [facility] [address] [facility] [place] [address], [place], [address], 08/17/2025 15:57:00 08/17/20 25 08/17/2025 CBC RBC 3.45 x10 3.50-5 .50 low Not Available [facility] [address] [facility] [place] [address], [place], [address], 08/17/2025 15:57:00 08/17/20 25 08/17/2025 CBC HGB 12.4 g/dL 12.0-1 6.0 Not Available [facility] [address] [facility] [address] [facility] [place] [address], [place], [address], 08/17/2025 15:57:00 08/17/20 25 08/17/2025 CBC HCT 37.7 % 37.0-4 7.0 Not Available [facility] [address] [facility] [address] [facility] [place] [address], [place], [address], 08/17/2025 15:57:00 08/17/20 25 08/17/2025 CBC MCV 109.2 fL 80.0-9 9.9 high Not Available [facility] [address] [facility] [address] [facility] [place] [address], [place], [address], 08/17/2025 15:57:00 08/17/20 25 08/17/2025 CBC MCH 36.0 pg 27.0-3 2.0 high Not Available [facility] [address] [facility] [address] [facility] [place] [address], [place], [address], 08/17/2025 15:57:00 08/17/20 25 08/17/2025 CBC MCHC 32.9 g/dL 32.0-3 6.0 Not Available [facility] [address] [facility] [address] [facility] [place] [address], [place], [address], 08/17/2025 15:57:00 08/17/20 25 08/17/2025 CBC RDW 12.7 % 11.5-1 4.5 Not Available [facility] [address] [facility] [address], [place], [address], 08/17/2025 15:57:00 08/17/20 25 08/17/2025 CBC plt 239.0 x10 140.0- 451.0 Not Available [facility] [address] [facility] [address], [place], [address], 08/17/2025 15:57:00 08/17/20 25 08/17/2025 CBC lymphocytes % 27.7 % 20.0-5 0.0 Not Available [facility] [address] [facility] [address], [place], [address], 08/17/2025 15:57:00 08/17/20 25 08/17/2025 CBC granulcytes % 56.9 % 30.0-7 0.0 Not Available [facility] [address] [facility] [address], [place], [address], 08/17/2025 15:57:00 08/17/20 25 08/17/2025 CBC monocytes % 10.1 % 2.0-16 .0 Not Available [facility] [address] [facility] [address], [place], [address], 08/17/2025 15:57:00 08/17/20 25 08/17/2025 CBC granulcytes# 3.6 x10 Not Cyndi ilable [facility] [address] [address], [place], [address], 08/17/2025 15:57:00 08/17/20 25 08/17/2025 CBC lymphocytes # 1.8 x10 Not Available [facility] [address] [address], [place], [address], 08/17/2025 15:57:00 08/17/20 25 08/17/2025 CBC monocytes # 0.6 x10 Not Avai lable [facility] [address] [facility] [address], [place], [address], 08/17/2025 15:57:00 08/17/20 25 08/17/2025 TSH TSH 0.81 uIU/m L 0.49-3 .82 Not Available [facility] [address] [facility] [address], [place], [address], 08/17/2025 16:04:05 08/17/2008/18/2025 PERIP HERAL BLOOD SMEAR REVIE W peripheral blood smear review Macro cytos is 1 + Ovalo cytes 1 + Polyc hroma mikhail 1 + Revie w of the perip heral smear revea ls adequ ate numbe rs of plate lets. Revie w of perip heral smear confi jace autom ated resul ts. Not Available [facility] [address] , [place], [address], 08/18/2025 15:11:08 08/17/2008/19/2025 METHY LMALO SE ACID AND HOMOC [...] : 63-24 1 nmol/ L Not Available [facility] [address] [place], [address], 08/20/2025 00:38:15 08/17/2008/19/2025 METHY LMALO SE ACID [...] for clini luisito purpo ses. Not Available [facility] [address] [place], [address], 08/20/2025 00:38:15 08/17/20 25 08/19/2025 PROTE IN, TOTAL AND PROTE IN ELECT ROPHO RESIS W/ REFL [place] protein, total 7.1 g/dL 6.1-8. 1 normal Not Available [facility] [address] [place], [address], 08/20/2025 00:38:16 08/17/20 25 08/19/2025 PROTE IN, TOTAL AND PROTE IN ELECT ROPHO RESIS W/ REFL [place] albumin 4.5 g/dL 3.8-4. 8 normal Not Available [address], [address], 08/20/2025 00:38:16 08/17/20 25 08/19/2025 PROTE IN, TOTAL AND PROTE IN ELECT ROPHO RESIS W/ REFL [place] alpha 1 globulin 0.3 g/dL 0.2-0. 3 normal Not Available [address], [address], 08/20/2025 00:38:16 08/17/20 25 08/19/2025 PROTE IN, TOTAL AND PROTE IN ELECT ROPHO RESIS W/ REFL [place] alpha 2 globulin 0.5 g/dL 0.5-0. 9 normal Not Available [address], [address], 08/20/2025 00:38:16 08/17/20 25 08/19/2025 PROTE IN, TOTAL AND PROTE IN ELECT ROPHO RESIS W/ REFL [place] beta 1 globulin 0.4 g/dL 0.4-0. 6 normal Not Available [address], [address], 08/20/2025 00:38:16 08/17/20 25 08/19/2025 PROTE IN, TOTAL AND PROTE IN ELECT ROPHO RESIS W/ REFL [place] beta 2 globulin 0.3 g/dL 0.2-0. 5 normal Not Available [address], [address], 08/20/2025 00:38:16 08/17/20 25 08/19/2025 PROTE IN, TOTAL AND PROTE IN ELECT ROPHO RESIS W/ REFL [place] gamma globulin 1.1 g/dL 0.8-1. 7 normal Not Available [facility] [address] [place], [address], 08/20/2025 00:38:16 08/17/2008/19/2025 PROTE IN, TOTAL AND PROTE IN ELECT ROPHO RESIS W/ REFL [place] interpretati on No restr icted band (M-sp mera) seen. Not Available [facility] [address] [place], [address], 08/20/2025 00:38:16 08/17/2008/19/2025 PTH, INTAC T (ICMA [...] Joie l High Not Available [facility] [address] [place], [address], 08/20/2025 00:38:16 08/17/20 25 08/19/2025 PTH, INTAC T (ICMA ) AND IONIZ ED CALCI UM calcium 10.2 mg/dL 8.6-10 .4 normal Not Available [facility] [address], [address], 08/20/2025 00:38:16 08/17/2008/19/2025 PTH, INTAC T (ICMA ) AND IONIZ ED CALCI UM calcium, ionized 5.6 mg/dL 4.7-5. 5 high Not Available [facility] [address] [place], [address], 08/20/2025 00:38:16 08/17/20 25 08/19/2025 T4, FREE T4, free 1.9 NG/dL 0.8-1. 8 high Not Available [facility] [address] [place], [address], 08/20/2025 00:38:17 08/17/20 25 08/19/2025 VITAM IN B12 vitamin B12 >2000 pg/mL 200-11 00 high Not Available [facility] [address] [facility] [place], [address], 08/20/2025 00:38:18 08/17/20 25 08/17/2025 PT/IN R Protime 21.5 Not Available [facility] ([facility]) [address] [place], [address], 08/17/2025 14:33:48 08/17/20 25 08/17/2025 PT/IN R INR 1.8 Not Available [facility] ([facility]) [address] [place], [address], 08/17/2025 14:33:48 09/02/20 25 09/02/2025 PT/IN R Protime 29.0 Not Available [facility] ([facility]) [address] [place], [address], 09/02/2025 13:17:30 09/02/20 25 09/02/2025 PT/IN R INR 2.4 Not Available [facility] ([facility]) [address] [place], [address], 09/02/2025 13:17:30 08/05/20 25 08/04/2025 XR, cervi luisito spine , 2 or 3 view No observ ation record ed. [facility] [address] [place], [address], 08/07/2025 13:25:55 08/05/2008/04/2025 XR, shoul vito, 2 or more view No observ ation record ed. [facility] [address] [place], [address], 08/07/2025 13:25:55 09/09/2009/08/2025 US, echoc ardio gram, trans thora cic, compl ete, w/ color flow No observ ation record ed. [facility] [address] [place], [address], 09/11/2025 09:19:21 09/15/2009/15/2025 MAMMO , scree ilya, digit al, bilat eral No observ ation record ed. [email or web address] [place] [address] [address] [place], [address], 09/16/2025 16:09:54 Result Notes None recorded. Problems Name Problem SNOMED Code Status Onset Date Resolution Date Notes Provider Name and Address Organization Details Recorded Time Depressi ve disorder 76987489 Completed 202010/14/2021 Depressi on - Status is Inactive ; 10/14/20 11:08AM by Maryellne Marmolejo PA-C, Annotati on/Adden dum; Promoted ; acuity set as *; FELISHA DESIR null, [facility] 5 07:56:57 Herpes zoster 7988374 Completed 202201/02/2025 SHINGLES FELISHA DESIR null, [facility] 5 07:56:03 Dysthymi a 13914241 Active 2022 DEPRESSI ON WITH ANXIETY FELISHA hamilton, [facility] 5 07:55:28 Benign essentia l hyperten jovanni 9196379 Active 2022 FELISHA hamilton, [facility] 5 07:55:28 Gastroes ophageal reflux disease 338611045 Active 2022 FELISHA DESIR null, [facility] 5 07:55:28 Fracture of upper end of humerus 460337056 Completed 202201/02/2025 CLOSED FRACTURE OF PROXIMAL END OF RIGHT HUMERUS, SEQUELA FELISHA DESIR null, [facility] 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 5 07:56:22 Atrial fibrilla tion 03246668 Active 2022 [facility] 3 14:45:05 Coronary atherosc lerosis 661843229 Active 2022 bare metal stents to circ and LAD 2011 FELISHA hamilton, [facility] 14:46:30 Iron deficien cy anemia 53671860 Active 2022 [facility] 5 07:55:28 Hypothyr oidism 00993837 Active 2022 FELISHA hamilton, [facility] 3 14:45:59 Anxiety 38564981 Active 2022 FELISHA hamilton, [facility] 3 14:46:54 Viral hepatiti s C 15196073 Active 2022 FELISHA hamilton, [facility] 5 07:55:28 Moderate recurren t major depressi on 75738647 Active 2023 FELISHA DESIR null, [facility] 5 07:55:28 Need for personal care assistan ce [id number] 487520 Active 2023 FELISHA DESIR null, [facility] 5 07:55:28 Frail elderly 133384888 Active 2023 FELISHA DESIR null, [facility] 5 07:55:28 Seasonal allergic rhinitis 097422736 Active 2023 FELISHA DESIR null, [facility] 5 07:55:28 Chronic pain 53332299 Active 2023 FELISHA DESIR null, [facility] 5 07:55:28 Dementia 84839382 Active 2023 FELISHA DEISR null, [facility] 5 07:55:28 Constipa tion 00480245 Active 2023 FELISHA DESIR null, [facility] 5 07:55:44 Hyperlip idemia 23630336 Active 2024 FELISHA DESIR null, [facility] 5 07:59:38 Occult blood detected in feces 12940300 Active 2024 FELISHA DESIR null, [facility] 5 09:13:35 Mean corpuscu lar volume above referenc e range 389053957 Active 2024 FELISHA DESIR null, [facility] 5 09:14:07 Hypercal cemia 72337309 Active 2024 FELISHA DESIR null, [facility] 5 10:07:49 Vitamin D deficien cy 78385156 Active 2024 Lyn Marmolejo MD [address] [place] [address], [address], [facility] [place] 5 12:54:55 Hyperpar athyroid ism 98048641 Active 2024 Lyn Marmolejo MD [address] [place] [address], [address], [facility] [place] 5 12:54:56 Dysuria 69868901 Active 2024 Dotty hamilton, [facility] [place] 5 14:08:08 Problem Notes None recorded. Procedures Surgical History Date Name Laterality Status Provider Name and Address Organization Details Recorded Time 2024 Most Recent Mammogram completed FELISHA DESIR [facility] 5 16:09:39 2024 esophagogastroduodenoscopy completed YANELIS WELSH [facility] 5 12:23:16 2024 colonoscopy completed FELISHA DESIR [facility], LJosueLJosueCJosue 5 10:20:11 2023 esophagogastroduodenoscopy completed KIARA DUCKWORTH [facility] 4 12:40:14 2023 colonoscopy completed Lyn Marmolejo MD [address] [place] [address], [address], [facility] [place] 5 10:19:30 cholecystectomy completed FELISHA DESIR [facility] [place] 3 14:48:40 replacement of mitral valve complete d FELISHA DESIR [facility] 3 14:49:22 section completed FELISHA DESIR [facility] 3 15:14:43 Imaging Results None recorded. Procedure Notes None recorded. Medical Equipment None Reported. Allergies Allergen ID Allergen Name Allergen Category Reaction Reaction Severity Criticality Documentation Date Start Date Code Code System Note Provider Name and Address Organization Details Recorded Time 1376 morphine medicatio n Not available Not available Not available 02/07/2023 7052 RxNorm Dotty Celis [facility] 3 10:45:47 1377 diltiazem Not available Not available Not available Not available 02/07/2023 3443 RxNorm Dotty Celis [facility] 3 10:45:54 4552 Bactrim medicatio n other severe high 04/17/2023 39043 9 RxNorm do not give d/t couma din Lola Vidal [facility] 4 13:34:33 31896 diltiazem hydrochlo ride medicatio n Not available Not available Not available 05/26/2023 1 RxNorm Comme nt: Recor ded 12/29 7:56A M by Yanelis Kitchen on, MUNITIONS WORKER, 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 ; Promo talib; Signi fican ce: *; Reaso n: Drug aller gy; ; FELISHA DESIR [facility] 3 12:26:44 13373 morphine sulfate medicatio n Not available Not available Not available 05/26/2023 38745 RxNorm Comme nt: Recor ded 12/29 7:56A M by Yanelis Kitchen on, MUNITIONS WORKER, 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 ; Promo talib; Signi fican ce: *; Reaso n: Drug aller gy; ; FELISHA DESIR [facility] 3 12:26:48 Medications Name Sig Start [...] 22 2:38PM by Felisha Desir LPN (Authori pushpad through [...] [facility] Levothyro xine Sodium daily 06/08 completed 42441; Recorded 01/09/20 6:06PM by Shirley Quevedo (Authori [...] History Question Answer Notes LastModified by Organizat Waizy Details LastModified Time Tobacco Smoking Status Former Smoker FELISHA hamilton [facility] 04/17/2023 14:48:01 What Was The Date Of Your Most Recent Tobacco Screening? 05/27/2025 [email or web address] Information not available 05/27/2025 Sex: Unknown Functional Status Question Answer Note LastModified by Organizat ion Details LastModified Time Do you use any illicit or recreational drugs? No [email or web address] Information not available 04/17/2023 Do you or have you ever used any other forms of tobacco or nicotine? No [email or web address] Information not available 06/29/2023 What is your level of alcohol consumption? None Information not available 04/17/2023 Mental Status None [...] Time Influenza, MDCK, quadrivalent, PF 2 completed [facility] 10/10/2024 08:38:58 COVID-19, mRNA, LNP-S, PF, 100 mcg/0.5mL dose or 50 mcg/0.25mL dose 1 completed FELISHA DESIR null, [facility] 10/10/2024 08:38:58 COVID-19, mRNA, LNP-S, PF, 100 mcg/0.5mL dose or 50 mcg/0.25mL dose 1 completed FELISHA hamilton, [facility] 10/10/2024 08:38:58 COVID-19, mRNA, LNP-S, PF, 100 mcg/0.5mL dose or 50 mcg/0.25mL dose 2 completed FELISHA hamilton, [facility] 10/10/2024 08:38:58 Pneumococcal conjugate PCV20, polysaccharide [id number] conjugate, adjuvant, PF 3 completed FELISHA hamilton, [facility] 10/10/2024 08:38:58 COVID-19, mRNA, LNP-S, bivalent, PF, 50 mcg/0.5 mL or 25mcg/0.25 mL dose 3 completed FELISHA hamilton, [facility] 10/10/2024 08:38:58 pneumococcal polysaccharide PPV23 3 completed FELISHA hamilton, [facility] 04/17/2023 12:02:00 Tdap 1 completed FELISHA hamilton, [facility] 10/10/2024 08:38:58 Influenza, split virus, trivalent, PF 3 completed FELISHA hamilton, [facility] 04/17/2023 12:02:00 influenza, split (incl. purified surface antigen) 0 completed FELISHA hamilton, [facility] 04/17/2023 12:02:00 Hep A, adult 1 [facility] 10/10/2024 08:38:58 Hep A, adult 9 completed FELISHA DESIR null, [facility] 10/10/2024 08:38:58 Influenza, split virus, quadrivalent, PF 1 completed FELISHA DESIR null, [facility] 10/10/2024 08:38:58 Influenza, split virus, quadrivalent, PF 9 completed FELISHA DESIR null, [facility] 10/10/2024 08:38:58 Influenza, MDCK, trivalent, PF 4 completed FELISHA DESIR null, [facility] 10/10/2024 08:38:58 Influenza, MDCK, quadrivalent, preservative 3 completed FELISHA hamilton, [facility] 10/10/2024 08:38:58 pneumococcal polysaccharide PPV23 8 completed Lola hamilton, [facility] 07/02/2024 08:41:52 Influenza, split virus, quadrivalent, PF 8 completed Lola hamilton, [facility] 07/02/2024 08:41:52 zoster recombinant 3 completed Lola hamilton, [facility] 07/02/2024 14:52:40 COVID-19, mRNA, LNP-S, PF, 50 mcg/0.5 mL 4 completed FELISHA hamilton, [facility] 10/10/2024 08:38:58 Influenza, MDCK, trivalent, preservative 4 completed FELISHA hamilton, [facility] 10/10/2024 08:38:58 Past Encounters Encounter ID Performer Location Encounter Start Date Encounter Closed Date Diagnosis/Indication Diagnosis SNOMED-CT Code Diagnosis ICD10 Code Diagnosis IMO Codes Diagnosis Note [id number] Lyn Marmolejo MD [facility] ([facility]) [address] [place] [phone] 08/04/2025 10:06:02 08/04/2025 15:14:44 Right cervical root neuropathy 3629774409 7963988 M54.12 68363403 Pain of ri ght shoulder region 5796044607 M25.511 [id number] Lyn Marmolejo MD [facility] ([facility]) [address] [place] [address] 08/07/2025 11:39:45 08/10/2025 10:28:08 Atrial fibrillation 78838307 I48.91 warfarin therapyd/c naproxen d/t hx of bleeding [id number] Lyn Marmolejo MD [facility]) [address] [place] [phone] 08/17/2025 13:17:17 08/18/2025 09:51:22 History of mechanical prosthetic mitral valve replacement 348709758 Z95.2 Mean corpu scular volume above reference range 225000556 R71.8 325411 Hypercalcemia 28154056 E 83.52 9955 Drug therapy finding 309 931018 Z79.899 68146006 Generalize d anxiety disorder 96951277 F41.1 [id number] Lyn Marmolejo MD [facility]) [address] [place] [phone] 5 09/02/2025 13:16:47 09/03/2025 10:16:00 History of mechanical prosthetic mitral valve replacement 014631647 Z95.2 Health Concerns Section Related Observation LastModified by Organization Detai ls LastModified Time None Recorded Concern Status LastModified by Organization Details LastModified Time None Recorded Payers Encounter Date Sequence Insurance Name Policy Number Policy Hernandez Covered Member ID Hernandez Member ID Guarantor Name 09/02/2025 1 [place]ANT[place] - [place]PO) [id number] Odilia Ulloa [id number] Odilia Ulloa 09/02/2025 2 [place] Odilia Ulloa [id number] Odilia Ulloa OBGyn Episode No OBEpisode recorded.
--- OUTSIDE RECORDS SUMMARY | 2025-09-19 05:40 | XMS_ITS | Encounter Summary ---
Author Organization [facility] Address [address] [place] [address] Care Team Providers Care Rope Making Machine Operator Name Role Phone Rico Muñiz MD, Sharan Jaime Primary Care Provider Encounter Details Date Type Department Care Team (Latest Contact Info) Description 08/05/2001 Outpatient Historical [facility] Sharan Gómez Jr., MD [address] [place] [address] Generalized anxiety disorder (Primary Dx); Hypopotassemia Social History Tobacco Use Types Packs/Day Years Used Date Smoking Tobacco: Never Assessed Comments Unknown Sex and Gender Information Value Date Recorded Sex Assigned at Not on file 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
--- OUTSIDE RECORDS SUMMARY | 2025-09-19 05:40 | XMS_ITS | Encounter Summary ---
Author Organization [facility] Address [address] [place] [address] Care Team Providers Care Supervisor Fertilizer Processing Name Role Phone Rico Muñiz MD, Sharan Jaime Primary Care Provider Encounter Details Date Type Department Care Team (Latest Contact Info) Description 09/05/2001 Outpatient Historical [facility] Sharan Gómez Jr., MD [address] [place] [address] OSTEOARTHROS NOS-UNSPEC (Primary Dx); OSTEOPOROSIS NOS Social History Tobacco Use Types Packs/Day Years Used Date Smoking Tobacco: Never Assessed Comments Unknown Sex and Gender Information Value Date Recorded Sex Assigned at Not on file 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
--- OUTSIDE RECORDS SUMMARY | 2025-09-19 05:40 | XMS_ITS | Encounter Summary ---
Author Organization [facility] Address [address] [place] [address] Care Team Providers Care Civil Engineering Project Manager Name Role Phone Rico Muñiz MD, Sharan Jaime Primary Care Provider Encounter Details Date Type Department Care Team (Latest Contact Info) Description 06/24/2001 Outpatient Historical [facility] Int Luis AFaisal Lopez [place] [place] [phone] Serge Arrington MD [address] [place] [address] Mitral valve disorder (Primary Dx); Unspecified essential hypertension; Other and unspecified hyperlipidemia; Dizziness and giddiness Social History Tobacco Use Types Packs/Day Years Used Date Smoking Tobacco: Never Assessed Comments Unknown Sex and Gender Information Value Date Recorded Sex Assigned at Not on file 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
--- OUTSIDE RECORDS SUMMARY | 2025-09-19 05:40 | XMS_ITS | Encounter Summary ---
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
--- OUTSIDE RECORDS SUMMARY | 2025-09-19 05:40 | XMS_ITS | Encounter Summary ---
Author Organization [facility] Address [address] [place] [address] Care Team Providers Care Earth Observations Chief Scientist Name Role Phone Rico Muñiz MD, Sharan Jaime Primary Care Provider Encounter Details Date Type Department Care Team (Late st Contact Info) Description 07/02/2001 Outpatient Historical [facility] Serge Arrington MD [address] [facility] [address] [place] [phone] Encounter for long-term (current) use of other medications (Primary Dx); Unspecified essential hypertension Social History Tobacco Use Types Packs/Day Years Used Date Smoking Tobacco: Never Assessed Comments Unknown Sex and Gender Information Value Date Recorded Sex Assigned at Not on file 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
--- OUTSIDE RECORDS SUMMARY | 2025-09-19 05:40 | XMS_ITS | Encounter Summary ---
Author Organization [facility] Address [address] [place] [address] Care Team Providers Care Technical Program Manager Name Role Phone Rico Muñiz MD, Sharan Jaime Primary Care Provider Encounter Details Date Type Department Care Team (Late st Contact Info) Description 10/15/2020 Lab Requisition [facility] Services [address] [place] [address] Paulina Peterson MD [address] [place] [address] Social History Tobacco Use Types Packs/Day Years Used Date Smoking Tobacco: Never Assessed Comments Unknown Sex and Gender Information Value Date Recorded Sex Assigned at Not on file Legal Sex Female 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 Gender Identity Not on file Sexual Orientation Not on file documented as of this encounter Plan of Treatment Not on file documented as of this encounter Procedures Procedure Name Priority Date/Time Associated Diagnosis Comments PROTIME-INR Routine 10/15/2020 4:40 AM JOB PLACEMENT COUNSELOR documented in this encounter Results * (ABNORMAL) PROTIME-INR (10/15/2020 4:40 AM JOB PLACEMENT COUNSELOR) PROTIME 46.6(H) 11.9 - 15.5 Seconds 10/15/2020 4:26 PM JOB PLACEMENT COUNSELOR [facility] INR 4.9(H) 0.8 - 1.2 10/15/2020 4:26 PM JOB PLACEMENT COUNSELOR [facility] Blood Collection / Unknown 10/15/2020 4:40 AM JOB PLACEMENT COUNSELOR 10/15/2020 4:01 PM JOB PLACEMENT COUNSELOR Narrative [facility] - 10/15/2020 4:26 PM JOB PLACEMENT COUNSELOR Expected Values for INR: DVT/PE Goal INR 2.5; range 2.0 - 3.0 Valve Replacement Tissue Goal INR 2.5; range 2.0 - 3.0 Valve Replacement Mechanical Goal INR 3.0; range 2.5 - 3.5 POST-ID Goal INR 2.5; range 2.0 - 3.0 or Goal INR 3.0; range 2.5 - 3.5 Atrial Fibrillation Goal INR 2.5; range 2.0 - 3.0 Ischemic Stroke Goal INR 2.5; range 2.0 - 3.0 For additional information see Guidelines for Anticoagulation available from the pharmacy [facility] Paulina Peterson MD HEMATOLOGY ORDERABLES [facility] smart Result [facility] [address] [place] [address] documented in this encounter Visit Diagnoses Not on filedocumented in this encounter Care Teams Technical Program Manager Relationship Specialty Start Date End Date Sharan Gómez Jr., MD [address] [place] [phone] PCP - General 08/10/05 documented as of this encounter
--- OUTSIDE RECORDS SUMMARY | 2025-09-19 05:40 | XMS_ITS | Encounter Summary ---
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
--- OUTSIDE RECORDS SUMMARY | 2025-09-19 05:40 | XMS_ITS | Encounter Summary ---
Author Organization [facility] Address [address] [place] [address] Care Team Providers Care Research Contracts Supervisor Name Role Phone Rico Muñiz MD, Sharan Jaime Primary Care Provider Encounter Details Date Type Department Care Team (Latest Contact Info) Description 01/03/2002 Outpatient Historical [facility] Sharan Gómez Jr., MD [address] [place] [address] FLU W RESP MANIFEST NEC (Primary Dx); AFTERCARE HALF-WAY ANTICOAG USE Social History Tobacco Use Types Packs/Day Years Used Date Smoking Tobacco: Never Assessed Comments Unknown Sex and Gender Information Value Date Recorded Sex Assigned at Not on file 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
--- OUTSIDE RECORDS SUMMARY | 2025-09-19 05:40 | XMS_ITS | Encounter Summary ---
Author Organization [facility] Address [address] [place] [address] Care Team Providers Care Pie Crimping Machine Operator Name Role Phone Rico Muñiz MD, Sharan Jaime Primary Care Provider Encounter Details Date Type Department Care Team (Latest Contact Info) Description 11/14/2001 Outpatient Historical [facility] Sharan Gómez Jr., MD [address] [place] [address] OSTEOARTHROS NOS-UNSPEC (Primary Dx); HEART VALVE REPLAC NEC Social History Tobacco Use Types Packs/Day Years Used Date Smoking Tobacco: Never Assessed Comments Unknown Sex and Gender Information Value Date Recorded Sex Assigned at Not on file Legal 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
--- OUTSIDE RECORDS SUMMARY | 2025-09-19 05:40 | XMS_ITS | Encounter Summary ---
Author Organization [facility] Address [address] [place] [address] Care Team Providers Care Loading Checker Name Role Phone Rico Muñiz MD, Sharan Jaime Primary Care Provider Encounter Details Date Type Department Care Team (Latest Contact Info) Description 07/06/2006 Outpatient Historical [facility] Services-Faisal [facility] [address] [place] [phone] Jennifer Cash MD NO ADDRESS ON FILE Unspecified Essential Hypertension (Primary Dx); Other Chest Pain Social History Tobacco Use Types Packs/Day Years Used Date Smoking Tobacco: Never Assessed Comments Unknown Sex and Gender Information Value Date Recorded Sex Assigned at Not on file Legal Sex Female 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
--- OUTSIDE RECORDS SUMMARY | 2025-09-19 05:40 | XMS_ITS | Encounter Summary ---
Author Organization [facility] Address [address] [place] [address] Care Team Providers Care Printing And Stamping Supervisor Name Role Phone Rico Muñiz MD, Sharan Jaime Primary Care Provider Encounter Details Date Type Department Care Team (Latest Contact Info) Description 07/02/2001 Outpatient Historical [facility] [address] [place] [phone] X358 Social History Tobacco Use Types Packs/Day Years Used Date Smoking Tobacco: Never Assessed Comments Unknown Sex and Gender Information Value Date Recorded Sex Assigned at Not on file Legal Sex Female 5:42 AM ADAPTED PHYSICAL EDUCATION 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
--- OUTSIDE RECORDS SUMMARY | 2025-09-19 05:40 | XMS_ITS | Continuity of Care Document ---
Author Organization DAI [facility] Luis M, Keenan [facility] ([facility]) Address [address] [place] [address] Care Team Providers Care Application Systems Engineer Name Role Phone LYN MARMOLEJO Primary Care Provider [phone] Assessment No assessment recorded. Plan of Treatment Reminders Order Date Submit Date Provider Last Modified By Organization Details Last Modified Time Details Appointments None record ed. Lab PT/INR 025 07/06/20 [facility] ([facility]), [address] [place], [address], 11:37:46 Referral None record ed. Procedures None record ed. Surgeries None record ed. Imaging None record ed. Medication Orders None record ed. Patient TargetsNo targets recorded. Patient InstructionsNo instructions recorded. Reason for Referral None Reported. Results Created Date Observation Date Name Description Value Unit Range Abnormal Flag Note LastModifiedBy Organization Detail LastModifiedTime 06/05/2006/05/2025 HBA1C hemaglobin A1C 5.7 4.2-6. [address] [facility] [address], [place], [address], 06/05/2025 12:56:12 06/05/2006/05/2025 CMP (FEMA LE) glucose 86.0 mg/dL 60.0-9 9.0 Not Available [facility] [address], [place], [address], 06/05/2025 12:57:50 06/05/20 25 06/05/2025 CMP (FEMA LE) BUN (blood urea nitrogen) 17.0 mg/dL 10.0-2 6.0 Not Available [facility] [address] [facility] [address], [place], [address], 06/05/2025 12:57:50 06/05/20 25 06/05/2025 CMP (FEMA LE) creatinine (serum) 0.9 mg/dL 0.4-1. 5 Not Available [facility] [address] [facility], [place], [address], 06/05/2025 12:57:50 06/05/20 25 06/05/2025 CMP (FEMA LE) BUN/creatini ne ratio 18.89 ratio Not Available [facility] [address] [facility] [address], [place], [address], 06/05/2025 12:57:50 06/05/20 25 06/05/2025 CMP (FEMA LE) eGFR calculated 64.9 Not Available [facility] [address] [facility], [place], [address], 06/05/2025 12:57:50 06/05/20 25 06/05/2025 CMP (FEMA LE) total protein 7.6 g/dL 6.0-8. 5 Not Available [facility] [address] [facility], [place], [address], 06/05/2025 12:57:50 06/05/20 25 06/05/2025 CMP (FEMA LE) total bilirubin 1.1 mg/dL 0.2-1. 3 Not Available [facility] [address] [facility], [place], [address], 06/05/2025 12:57:50 06/05/20 25 06/05/2025 CMP (FEMA LE) albumin 4.5 g/dL 3.5-5. [address] [facility] [address] [facility], [place], [address], 06/05/2025 12:57:50 06/05/20 25 06/05/2025 CMP (FEMA LE) globulin 3.1 calc Not Available [facility] [address] [facility], [place], [address], 06/05/2025 12:57:50 06/05/20 25 06/05/2025 CMP (FEMA LE) AST (SGOT) 28.0 U/L 0.0-46 .0 Not Available [facility] [address] [facility], [place], [address], 06/05/2025 12:57:50 06/05/20 25 06/05/2025 CMP (FEMA LE) altv (SGPT) 14.0 U/L 13.0-6 9.0 normal Not Available [facility] [address] [facility], [place], [address], 06/05/2025 12:57:50 06/05/20 25 06/05/2025 CMP (FEMA LE) A/G ratio 1.5 ratio Not Available [facility] [address] [facility] [address], [place], [address], 06/05/2025 12:57:50 06/05/20 25 06/05/2025 CMP (FEMA LE) ALP phos 87.0 U/L 30.0-1 40.0 normal Not Available [facility] [address] [place] [facility], [place], [address], 06/05/2025 12:57:50 06/05/20 25 06/05/2025 CMP (FEMA LE) calcium 10.6 mg/dL 8.4-10 .5 high Not Available [facility] [address] [facility], [place], [address], 06/05/2025 12:57:50 06/05/20 25 06/05/2025 CMP (FEMA LE) sodium 140.0 mmol/ L 136.0- 145.[address] [facility] [address] [facility], [place], [address], 06/05/2025 12:57:50 06/05/20 25 06/05/2025 CMP (FEMA LE) potassium 4.8 mmol/ L 3.5-5. [address] [facility] [address] [facility], [place], [address], 06/05/2025 12:57:50 06/05/20 25 06/05/2025 CMP (FEMA LE) chloride 106.0 mmol/ L 98.0-1 10.0 normal Not Available [facility] [address] [facility], [place], [address], 06/05/2025 12:57:50 06/05/20 25 06/05/2025 CMP (FEMA LE) C02 27.0 mmol/ L 22.0-3 1.[address] [facility] [address] [facility], [place], [address], 06/05/2025 12:57:50 06/05/20 25 06/05/2025 CMP (FEMA LE) anion gap 7.0 calc Not Available [facility] [address] [place] [facility], [place], [address], 06/05/2025 12:57:50 06/05/20 25 06/05/2025 CMP (FEMA LE) osmolality 290.0 calc Not Available [facility] [address] [facility], [place], [address], 06/05/2025 12:57:50 06/05/20 25 06/05/2025 LIPID PROFI LE (FEMA LE) cholesterol 227.0 mg/dL 0.0-20 0.0 high Not Available [facility] [address] [facility] [address], [place], [address], 06/05/2025 12:57:53 06/05/20 25 06/05/2025 LIPID PROFI LE (FEMA LE) trig 134.0 mg/dL 0.0-15 0.0 Not Available [facility] [address] [facility] [address], [place], [address], 06/05/2025 12:57:53 06/05/20 25 06/05/2025 LIPID PROFI LE (FEMA LE) HDL - direct 51.0 mg/dL >40.0 Not Available [facility] [address] [facility] [address], [place], [address], 06/05/2025 12:57:53 06/05/20 25 06/05/2025 LIPID PROFI LE (FEMA LE) VLDL - direct 26.8 mg/dL Not Available [facility] [address] [facility] [address], [place], [address], 06/05/2025 12:57:53 06/05/20 25 06/05/2025 LIPID PROFI LE (FEMA LE) LDL - direct 149.2 mg/dL 0.0-13 0.0 high Not Available [facility] [address] [facility] [address], [place], [address], 06/05/2025 12:57:53 06/05/20 25 06/05/2025 TSH TSH 0.83 uIU/m L 0.49-3 .82 Not Available [facility] [address] [facility] [address], [place], [address], 06/05/2025 14:15:28 06/05/20 25 06/06/2025 HEPAT ITIS B SURFA CE ANTIB RASHARD QL hepatitis B surface antibody ql NON-RE ACTIVE non-re active normal Not Available [facility] / ?.?? [facility] [address] [place], [address], 06/06/2025 09:58:04 06/11/2006/11/2025 CMP (FEMA LE) glucose 88.0 mg/dL 60.0-9 9.0 Not Available [facility] [address] [facility], [place], [address], 06/11/2025 13:16:16 06/11/20 25 06/11/2025 CMP (FEMA LE) BUN (blood urea nitrogen) 25.0 mg/dL 10.0-2 6.0 Not Available [facility] [address] [facility] [address], [place], [address], 06/11/2025 13:16:16 06/11/20 25 06/11/2025 CMP (FEMA LE) creatinine (serum) 1.1 mg/dL 0.4-1. 5 Not Available [facility] [address] [facility], [place], [address], 06/11/2025 13:16:16 06/11/20 25 06/11/2025 CMP (FEMA LE) BUN/creatini ne ratio 22.73 ratio Not Available [facility] [address] [facility], [place], [address], 06/11/2025 13:16:16 06/11/20 25 06/11/2025 CMP (FEMA LE) eGFR calculated 51.5 Not Available [facility] [address] [facility], [place], [address], 06/11/2025 13:16:16 06/11/20 25 06/11/2025 CMP (FEMA LE) total protein 7.7 g/dL 6.0-8. [address] [facility] [address] [facility], [place], [address], 06/11/2025 13:16:16 06/11/20 25 06/11/2025 CMP (FEMA LE) total bilirubin 0.9 mg/dL 0.2-1. [address] [facility] [address] [place] [facility], [place], [address], 06/11/2025 13:16:16 06/11/20 25 06/11/2025 CMP (FEMA LE) albumin 4.6 g/dL 3.5-5. [address] [facility] [address] [facility], [place], [address], 06/11/2025 13:16:16 06/11/20 25 06/11/2025 CMP (FEMA LE) globulin 3.1 calc Not Available [facility] [address] [facility] [address], [place], [address], 06/11/2025 13:16:16 06/11/2006/11/2025 CMP (FEMA LE) AST (SGOT) 32.0 U/L 0.0-46 .0 Not Available [facility] [address] [facility] [address], [place], [address], 06/11/2025 13:16:16 06/11/2006/11/2025 CMP (FEMA LE) altv (SGPT) 15.0 U/L 13.0-6 9.0 normal Not Available [facility] [address] [place] [facility], [place], [address], 06/11/2025 13:16:16 06/11/20 25 06/11/2025 CMP (FEMA LE) A/G ratio 1.5 ratio Not Available [facility] [address] [facility] [address], [place], [address], 06/11/2025 13:16:16 06/11/2006/11/2025 CMP (FEMA LE) ALP phos 81.0 U/L 30.0-1 40.0 normal Not Available [facility] [address] [place] [facility], [place], [address], 06/11/2025 13:16:16 06/11/2006/11/2025 CMP (FEMA LE) calcium 10.4 mg/dL 8.4-10 .[address] [facility] [address] [facility] [address], [place], [address], 06/11/2025 13:16:16 06/11/2006/11/2025 CMP (FEMA LE) sodium 142.0 mmol/ L 136.0- 145.[address] [facility] [address] [facility] [address], [place], [address], 06/11/2025 13:16:16 06/11/2006/11/2025 CMP (FEMA LE) potassium 4.7 mmol/ L 3.5-5. [address] [facility] [address] [facility] [address], [place], [address], 06/11/2025 13:16:16 06/11/2006/11/2025 CMP (FEMA LE) chloride 106.0 mmol/ L 98.0-1 10.0 normal Not Available [facility] [address] [facility] [address], [place], [address], 06/11/2025 13:16:16 06/11/2006/11/2025 CMP (FEMA LE) C02 27.0 mmol/ L 22.0-[address] [facility] [address] [facility] [address], [place], [address], 06/11/2025 13:16:16 06/11/2006/11/2025 CMP (FEMA LE) anion gap 9.0 calc Not Available [facility] [address] [place] [address], [place], [address], 06/11/2025 13:16:16 06/11/20 25 06/11/2025 CMP (FEMA LE) osmolality 296.7 calc Not Available [facility] [address] [place] [address], [place], [address], 06/11/2025 13:16:16 06/11/2006/12/2025 PTH, INTAC T (ICMA ) AND IONIZ ED CALCI UM parathyroid hormone, intact 146 pg/mL 16- high Inter preti ve Guide Intac t [...] Joie l High Not Available [facility] [address] [address] [place], [address], 06/12/2025 15:27:52 06/11/2006/12/2025 PTH, INTAC T (ICMA ) AND IONIZ ED CALCI UM calcium 10.1 mg/dL 8.6-10 .4 normal Not Available [facility] [address] [address] [place], [address], 06/12/2025 15:27:52 06/11/2006/12/2025 PTH, INTAC T (ICMA ) AND IONIZ ED CALCI UM calcium, ionized 5.5 mg/dL 4.7-5. 5 normal Not Available [facility] [address] [address] [place], [address], 06/12/2025 15:27:52 06/11/20 25 06/12/2025 VITAM IN [...] /MS is recom gagan d: order code [id number] (vargas ents >2yrs ). See Note 1 Note 1 For addit ional infor surya mclean e refer to http: //[facility] emma guidry.Vikash Riosia gnost ics.c om/fa q/FAQ 199 (This link is being provi ded for infor sarika stroud/ educkarla smart purpo ses only. ) Not Available [facility] [address] [place] [address], [address], 06/12/2025 15:27:54 06/24/20 25 06/24/2025 PT/IN R Protime 40.9 Not Available [facility] [address] [place] [address], [phone], 06/24/2025 13:13:54 06/24/20 25 06/24/2025 PT/IN R INR 3.4 Not Available [facility] ([facility]) [address] [place] [address], [phone], 06/24/2025 13:13:54 07/02/20 25 07/02/2025 PT/IN R Protime 42.3 Not Available [facility] ([facility]) [address] [place] [address], [phone], 07/01/2025 10:25:07 07/02/20 25 07/02/2025 PT/IN R INR 3.5 Not Available [facility] ([facility]) [address] [place], [address], 07/01/2025 10:25:07 07/06/20 25 07/06/2025 PT/IN R Protime 39.5 Not Available [facility] ([facility]) [address] [place], [address], 07/06/2025 11:23:26 07/06/20 25 07/06/2025 PT/IN R INR 3.3 Not Available [facility] ([facility]) [address] [place] [address], [phone], 07/06/2025 11:23:26 08/05/20 25 08/04/2025 XR, cervi luisito spine , 2 or 3 view No observ ation record ed. [facility] [address] [place], [address], 08/07/2025 13:25:55 08/05/20 25 08/04/2025 XR, shoul vito, 2 or more view No observ ation record ed. [facility] [address] [place], [address], 08/07/2025 13:25:55 09/09/20 25 09/08/2025 US, echoc ardio gram, trans thora cic, compl ete, w/ color flow No observ ation record ed. [facility] [address] [place], [address], 09/11/2025 09:19:21 09/15/20 25 09/15/2025 MAMMO , scree ilya, digit al, bilat eral No observ ation record ed. [address] [place], [address], 09/16/2025 16:09:54 Result Notes None recorded. Problems Name Problem SNOMED Code Status Onset Date Resolution Date Notes Provider Name and Address Organization Details Recorded Time Depressi ve disorder 93850569 Completed 202010/14/2021 Depressi on - Status is Inactive ; 10/14/20 11:08AM by Maryellen Marmolejo PA-C, Annotati on/Adden dum; Promoted ; acuity set as *; FELISHA hamilton, [facility] 5 07:56:57 Herpes zoster 3206880 Completed 202201/02/2025 SHINGLES FELISHA hamilton, [facility] 5 07:56:03 Dysthymi a 40640045 Active 2022 DEPRESSI ON WITH ANXIETY FELISHA hamilton [facility] 5 07:55:28 Benign essentia l hyperten jovanni 2145214 Active 2022 FELISHA hamilton [facility] 5 07:55:28 Gastroes ophageal reflux disease 952811907 Active 2022 FELISHA hamilton [facility] 5 07:55:28 Fracture of upper end of humerus 003765618 Completed 202201/02/2025 CLOSED FRACTURE OF PROXIMAL END OF RIGHT HUMERUS, SEQUELA FELISHA hamilton, [facility] 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 5 07:56:22 Atrial fibrilla tion 04260425 Active 2022 FELISHA hamilton, [facility] 3 14:45:05 Coronary atherosc lerosis 755020265 Active 2022 bare metal stents to circ and LAD 2011 FELISHA DESIR alfonso, [facility] 3 14:46:30 Iron deficien cy anemia 07618050 Active 2022 FELISHA hamilton, [facility] 5 07:55:28 Hypothyr oidism 55431995 Active 2022 FELIHSA hamilton, [facility] 3 14:45:59 Anxiety 28040637 Active 2022 FELISHA hamilton, [facility] 3 14:46:54 Viral hepatiti s C 08562474 Active 2022 FELISHA DESIR [facility], [facility] 5 07:55:28 Moderate recurren t major depressi on 08428226 Active 2023 FELISHA DESIR [facility], [facility] 5 07:55:28 Need for personal care assistan ce [id number] 840460 Active 2023 FELISHA DESIR [facility], [facility] 5 07:55:28 Frail elderly 590303082 Active 2023 FELISHA hamilton, [facility] 5 07:55:28 Seasonal allergic rhinitis 874074248 Active 2023 FELISHA DESIR [facility], [facility] 5 07:55:28 Chronic pain 77298977 Active 2023 FELISHA hamilton, [facility] 5 07:55:28 Dementia 79000466 Active 2023 FELISHA DESIR alfonso, [facility] 5 07:55:28 Constipa tion 91734387 Active 2023 FELISHA DESIR alfonso, [facility] 5 07:55:44 Hyperlip idemia 80945074 Active 2024 FELISHA DESIR null, [facility] 5 07:59:38 Occult blood detected in feces 94207863 Active 2024 FELISHA DESIR alfonso, [facility] 5 09:13:35 Mean corpuscu lar volume above referenc e range 629368169 Active 2024 FELISHA hamilton, [facility] 5 09:14:07 Hypercal cemia 37283467 Active 2024 FELISHA hamilton, [facility] 5 10:07:49 Vitamin D deficien cy 01668534 Active 2024 Lyn Marmolejo MD [address] [place] [address], [phone], [facility], YovaniCJosue 5 12:54:55 Hyperpar athyroid ism 34751639 Active 2024 Lyn Marmolejo MD [address] [place] [address], [phone], [facility], L.LJosueCJosue 5 12:54:56 Dysuria 85150765 Active 2024 Dotty Celis null, [facility] 5 14:08:08 Problem Notes None recorded. Procedures Surgical History Date Name Laterality Status Provider Name and Address Organization Details Recorded Time 2024 Most Recent Mammogram completed FELISHA [facility] 5 16:09:39 2024 esophagogastroduodenoscopy completed YANELIS WELSH [facility] 5 12:23:16 2024 colonoscopy completed FELISHA [facility] 5 10:20:11 2023 esophagogastroduodenoscopy completed KIARA WEINERY [facility] 4 12:40:14 2023 colonoscopy completed Lyn Marmolejo MD [address] [place] [address], [phone], [facility] 5 10:19:30 cholecystectomy completed FELISHA [facility] 3 14:48:40 replacement of mitral valve complete d [facility] 3 14:49:22 section completed [facility] 3 15:14:43 Imaging Results None recorded. Procedure Notes None recorded. Medical Equipment None Reported. Allergies Allergen ID Allergen Name Allergen Category Reaction Reaction Severity Criticality Documentation Date Start Date Code Code System Note Provider Name and Address Organization Details Recorded Time 1376 morphine medicatio n Not available Not available Not available 02/07/2023 7052 RxNorm Dottylizzie hamilton [facility] 3 10:45:47 1377 diltiazem Not available Not available Not available Not available 02/07/2023 3443 RxNorm Dotty Vimal hamilton [facility] 3 10:45:54 4552 Bactrim medicatio n other severe high 04/17/2023 82786 9 RxNorm do not give d/t couma din Lola Marcy null, [facility] 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 3 12:26:48 Medications Name [...] 11/13/19 23 3:03PM by Dotty Larry RN (Jacki palomino through Lyn Marmolejo MD), Refill Request; Refill [...] [facility] Levothyro xine Sodium daily 06/08 completed 34120; Recorded 01/09/20 6:06PM by Shirley Quevedo (Authori [...] Tobacco Smoking Status Former Smoker FELISHA hamilton [facility] 04/17/2023 14:48:01 What Was The Date Of Your Most Recent Tobacco Screening? 05/27/2025 [email or web address] Information not available 05/27/2025 Sex: Unknown Functional Status Question Answer Note LastModified by Organizat ion Details LastModified Time Do you use any illicit or recreational drugs? No [email or web address] Information not available 04/17/2023 Do you or have you ever used any other forms of tobacco or nicotine? No [email or web address] Information not available 06/29/2023 What is your level of alcohol consumption? None [email or web address] Information not available 04/17/2023 Mental Status None recorded. Family History Relationship Description Onset Age of this Age Resolved Age Notes LastModified by Organization Details LastModified Time Unspecified Relation Coronary atherosclero sis [email or web address] Not available 06/29 15:13:48 Medical History No medical history recorded. Gynecological History Statement/Question Response Most Recent Mammogram 09/15/2025 Obstetrics History GPAL:G 0 P 0 0 0 0 Immunizations Vaccine Type Date Status Note Provider Nam e and Address Organization Details Recorded Time Influenza, MDCK, quadrivalent, PF 2 completed FELISHA hamilton [facility] 10/10/2024 08:38:58 COVID-19, mRNA, LNP-S, PF, 100 mcg/0.5mL dose or 50 mcg/0.25mL dose 1 completed FELISHA hamilton [facility] 10/10/2024 08:38:58 COVID-19, mRNA, LNP-S, PF, 100 mcg/0.5mL dose or 50 mcg/0.25mL dose 1 completed FELISHA hamilton [facility] 10/10/2024 08:38:58 COVID-19, mRNA, LNP-S, PF, 100 mcg/0.5mL dose or 50 mcg/0.25mL dose 2 completed FELISHA hamilton [facility] 10/10/2024 08:38:58 Pneumococcal conjugate PCV20, polysaccharide [id number] conjugate, adjuvant, PF 3 completed FELISHA hamilton [facility] 10/10/2024 08:38:58 COVID-19, mRNA, LNP-S, bivalent, PF, 50 mcg/0.5 mL or 25mcg/0.25 mL dose 3 completed FELISHA DESIR null, [facility] 10/10/2024 08:38:58 pneumococcal polysaccharide PPV23 3 completed FELISHA DESIR null, [facility] 04/17/2023 12:02:00 Tdap 1 completed FELISHA DESIR null, [facility] 10/10/2024 08:38:58 Influenza, split virus, trivalent, PF 3 completed FELISHA DESIR null, [facility] 04/17/2023 12:02:00 influenza, split (incl. purified surface antigen) 0 completed FELISHA DESIR null, [facility] 04/17/2023 12:02:00 Hep A, adult 1 completed FELISHA DESIR null, [facility] 10/10/2024 08:38:58 Hep A, adult 9 completed FELISHA DESIR null, [facility] 10/10/2024 08:38:58 Influenza, split virus, quadrivalent, PF 1 completed FELISHA DESIR null, [facility] 10/10/2024 08:38:58 Influenza, split virus, quadrivalent, PF 9 completed FELISHA DESIR null, [facility] 10/10/2024 08:38:58 Influenza, MDCK, trivalent, PF 4 completed FELISHA DESIR null, [facility] 10/10/2024 08:38:58 Influenza, MDCK, quadrivalent, preservative 3 completed FELISHA hamilton, [facility] 10/10/2024 08:38:58 pneumococcal polysaccharide PPV23 8 completed Lola hamilton, [facility] 07/02/2024 08:41:52 Influenza, split virus, quadrivalent, PF 8 completed Lola hamilton, [facility] 07/02/2024 08:41:52 zoster recombinant 3 completed Lola hamilton, [facility] 07/02/2024 14:52:40 COVID-19, mRNA, LNP-S, PF, 50 mcg/0.5 mL 4 completed FELISHA hamilton, [facility] 10/10/2024 08:38:58 Influenza, MDCK, trivalent, preservative 4 completed FELISHA hamilton, [facility] 10/10/2024 08:38:58 Past Encounters Encounter ID Performer Location Encounter Start Date Encounter Closed Date Diagnosis/Indication Diagnosis SNOMED-CT Code Diagnosis ICD10 Code Diagnosis IMO Codes Diagnosis Note [id number] Lyn Marmolejo MD [facility] ([facility]) [address] [place] [phone] 5 06/05/2025 11:28:33 06/08/2025 12:35:39 Hypothyroidism 60336810 E03.9 Viral screening 40059971 4 Z11.59 [id number] Physical examination 588 0005 Z00.00 892071 Long-term current use of drug therapy 881468550 Z79.533 [id number] Lyn Marmolejo MD [facility] ([facility]) [address] [place] [address] [phone] 5 06/11/2025 10:52:49 06/12/2025 12:43:36 Hypercalcemia 70052462 E83.52 [id number] Lyn Marmolejo MD [facility] ([facility]) [address] [place] [address] 06/24/2025 12:18:01 06/30/2025 13:41:59 Hyperparathyroidism 33277860 E21.3 45866 corrected and ionized calcium are normalgfr 52 and stable Vitamin D deficiency 347 97856 E55.9 [id number] [id number] Lyn Marmolejo MD [facility] ([facility]) [address] [place] [phone] 5 07/01/2025 10:24:23 07/02/2025 11:29:38 Atrial fibrillation 00530463 I48.91 warfarin therapy [id number] Lyn Marmolejo MD [facility] ([facility]) [address] [place] [address] [phone] 5 07/03/2025 08:14:55 07/13/2025 10:06:37 Benign essential hypertension 5005380 I10 Coronary atherosclerosis 131712848 I25.119 Atrial fibrillation 4943 6004 I48.91 warfarin therapyd/c naproxen d/t hx of bleeding Hyperlipidemia 59430702 E78.00 Hypothyroidism 97159158 E03.9 Hyperparathyroidism 6699 9008 E21.3 [id number] Lyn Marmolejo MD [facility] ([facility]) [address] [place] [address] [phone] 5 07/06/2025 11:22:40 07/07/2025 09:33:46 History of mechanical prosthetic mitral valve replacement [id number] Z95.2 Health Concerns Section Related Observation LastModified by Organization Detai ls LastModified Time None Recorded Concern Status LastModified by Organization Details LastModified Time None Recorded Payers Encounter Date Sequence Insurance Name Policy Number Policy Hernandez Covered Member ID Hernandez Member ID Guarantor Name 07/06/2025 1 [id number] - [place]PO) [id number] Odilia Ulloa [id number] Odilia Ulloa 07/06/2025 2 [place] Odilia Ulloa [id number] Odilia Ulloa OBGyn Episode No OBEpisode recorded.
--- OUTSIDE RECORDS SUMMARY | 2025-09-19 05:40 | XMS_ITS | Encounter Summary ---
Author Organization [facility] Address [address] [place] [address] Care Team Providers Care Sales & Service Associate Name Role Phone Rico Muñiz MD, Sharan Jaime Primary Care Provider Encounter Details Date Type Department Care Team (Late st Contact Info) Description 06/24/2001 Outpatient Historical [facility] Serge Arrington MD [address] [facility] [address] [place] [phone] Unspecified essential hypertension (Primary Dx); Other and unspecified hyperlipidemia Social History Tobacco Use Types Packs/Day Years Used Date Smoking Tobacco: Never Assessed Comments Unknown Sex and Gender Information Value Date Recorded Sex Assigned at Not on file 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
--- OUTSIDE RECORDS SUMMARY | 2025-09-19 05:40 | XMS_ITS | Encounter Summary ---
Author Organization [facility] Address [address] [place] [address] Care Team Providers Care Ordering Box Operator Name Role Phone Rico Muñiz MD, Sharan Jaime Primary Care Provider Encounter Details Date Type Department Care Team (Latest Contact Info) Description 07/06/2006 Outpatient Historical [facility] [address] [place] [phone] Jennifer Cash MD NO ADDRESS ON FILE Unspecified Essential Hypertension (Primary Dx); Other and Unspecified Hyperlipidemia; Hypercalcemia; Routine Medical Exam Social History Tobacco Use Types Packs/Day Years Used Date Smoking Tobacco: Never Assessed Comments Unknown Sex and Gender Information Value Date Recorded Sex Assigned at Not on file 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
--- OUTSIDE RECORDS SUMMARY | 2025-09-19 05:40 | XMS_ITS | Encounter Summary ---
Author Organization [facility] Address [address] [place] [address] Care Team Providers Care Variety Lathe Operator Name Role Phone Rico Muñiz MD, Sharan Jaime Primary Care Provider Encounter Details Date Type Department Care Team (Latest Contact Info) Description 05/16/2001 Outpatient Historical [facility] Sharan Gómez Jr., MD [address] [place] [address] Unspecified essential hypertension (Primary Dx); FPC (current) use of anticoagulants Social History Tobacco Use Types Packs/Day Years Used Date Smoking Tobacco: Never Assessed Comments Unknown Sex and Gender Information Value Date Recorded Sex Assigned at Not on file 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
--- OUTSIDE RECORDS SUMMARY | 2025-09-19 05:40 | XMS_ITS | Encounter Summary ---
Author Organization [facility] Address [address] [place] [address] Care Team Providers Care Batch Dumper Name Role Phone Rico Muñiz MD, Sharan Jaime Primary Care Provider Encounter Details Date Type Department Care Team (Latest Contact Info) Description 12/20/2001 Outpatient Historical [facility] Sharan Gómez Jr., MD [address] [place] [address] WHEEZING (Primary Dx); HEART VALVE REPLAC NEC; [facility]CARE SEN[facility] ANTICOAG USE Social History Tobacco Use Types Packs/Day Years Used Date Smoking Tobacco: Never Assessed Comments Unknown Sex and Gender Information Value Date Recorded Sex Assigned at Not on file 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
--- OUTSIDE RECORDS SUMMARY | 2025-09-19 05:40 | XMS_ITS | Continuity of Care Document ---
Author Organization DAI Haas [facility], [place], [facility] ([facility]) Address [address] [place] [address] Care Team Providers Care Electronic Technician Name Role Phone LYN MARMOLEJO Primary Care Provider Assessment No assessment recorded. Plan of Treatment Reminders Order Date Submit Date Provider Last Modified By Organization Details Last Modified Time Details Appointments None record ed. Lab PT/INR 025 07/23/20 QUENTIN [facility]), [address] [place], [address], 11:41:21 Referral None record ed. Procedures None record ed. Surgeries None record ed. Imaging None record ed. Medication Orders None record ed. Patient TargetsNo targets recorded. Patient InstructionsNo instructions recorded. Reason for Referral None Reported. Results Created Date Observation Date Name Description Value Unit Range Abnormal Flag Note LastModifiedBy Organization Detail LastModifiedTime 06/24/2006/24/2025 PT/IN R Protime 40.9 Not Available [facility]) [address] [place], [address], 06/24/2025 13:13:54 06/24/2006/24/2025 PT/IN R INR 3.4 Not Available [facility] ([facility]) [address] [place], [address], 06/24/2025 13:13:54 07/02/2007/02/2025 PT/IN R Protime 42.3 Not Available [facility] ([facility]) [address] [place], [address], 07/01/2025 10:25:07 07/02/20 25 07/02/2025 PT/IN R INR 3.5 Not Available [facility] ([facility]) [address] [place], [address], 07/01/2025 10:25:07 07/06/20 25 07/06/2025 PT/IN R Protime 39.5 Not Available [facility] ([facility]) [address] [place], [address], 07/06/2025 11:23:26 07/06/20 25 07/06/2025 PT/IN R INR 3.3 Not Available [facility] ([facility]) [address] [place], [address], 07/06/2025 11:23:26 07/09/20 25 07/09/2025 PT/IN R Protime 34.6 Not Available [facility] ([facility]) [address] [place], [address], 07/09/2025 13:44:17 07/09/20 25 07/09/2025 PT/IN R INR 2.9 Not Available [facility] ([facility]) [address] [place], [address], 07/09/2025 13:44:17 07/14/20 25 07/14/2025 URINA LYSIS WITH MICRO color YELLOW Not Available [facility] [address] [place] [address], [address], 07/14/2025 14:52:32 07/14/20 25 07/14/2025 URINA LYSIS WITH MICRO clarity CLEAR Not Available [facility] [address], [place], [address], 07/14/2025 14:52:32 07/14/20 25 07/14/2025 URINA LYSIS WITH MICRO glu NEGATI VE Not Available [facility] [address], [place], [address], 07/14/2025 14:52:32 07/14/2007/14/2025 URINA LYSIS WITH MICRO bili NEGATI VE Not Available [facility] [address], [place], [address], 07/14/2025 14:52:32 07/14/2007/14/2025 URINA LYSIS WITH MICRO ket NEGATI VE Not Available [facility] [address], [place], [address], 07/14/2025 14:52:32 07/14/20 25 07/14/2025 URINA LYSIS WITH MICRO S.g 1.010 1.005- 1.025 Not Available [facility] [address], [place], [address], 07/14/2025 14:52:32 07/14/20 25 07/14/2025 URINA LYSIS WITH MICRO pH 5.0 5.0-7. 0 Not Available [facility] [address], [place], [address], 07/14/2025 14:52:32 07/14/20 25 07/14/2025 URINA LYSIS WITH MICRO pro NEGATI VE Not Available [facility] [address], [place], [address], 07/14/2025 14:52:32 07/14/20 25 07/14/2025 URINA LYSIS WITH MICRO uro 0.2 E.U./D L Not Available [facility] [address], [place], [address], 07/14/2025 14:52:32 07/14/20 25 07/14/2025 URINA LYSIS WITH MICRO nit NEGATI VE Not Available [facility] [address], [place], [address], 07/14/2025 14:52:32 07/14/20 25 07/14/2025 URINA LYSIS WITH MICRO blo NEGATI VE Not Available [facility] [address], [place], [address], 07/14/2025 14:52:32 07/14/20 25 07/14/2025 URINA LYSIS WITH MICRO jose elias NEGATI VE Not Available [facility] [address], [place], [address], 07/14/2025 14:52:32 07/14/20 25 07/14/2025 URINA LYSIS WITH MICRO WBC 0-1 abnormal Not Available [facility] [address], [place], [address], 07/14/2025 14:52:32 07/14/20 25 07/14/2025 URINA LYSIS WITH MICRO RBC NEGATI VE Not Available [facility] [address], [place], [address], 07/14/2025 14:52:32 07/14/20 25 07/14/2025 URINA LYSIS WITH MICRO epi cells 1-2 abnormal Not Available [facility] [address], [place], [address], 07/14/2025 14:52:32 07/14/20 25 07/14/2025 URINA LYSIS WITH MICRO bacteria 1-2 HYALIN E CAST abnormal Not Available [facility] [address] [facility] [address], [place], [address], 07/14/2025 14:52:32 07/14/2007/14/2025 URINA LYSIS WITH MICRO other NEG Not Available [facility] [address] [facility] [address], [place], [address], 07/14/2025 14:52:32 07/14/2007/16/2025 CULTU RE, URINE , ROUTI NE culture, urine, routine SEE NOTE CULTU RE, URINE , ROUTI NE Micro Numbe r: [id number] Test Statu s: Final Speci men Sourc e: Urine Speci men Quali ty: Adequ ate Resul t: No Growt h Not Available [employer] [facility] [address] [place], [address], 07/16/2025 02:51:13 07/17/2007/17/2025 PT/IN R Protime 34.4 Not Available [facility] ([facility]) [address] [place], [address], 07/16/2025 12:07:15 07/17/2007/17/2025 PT/IN R INR 2.9 Not Available [facility] ([facility]) [address] [place], [address], 07/16/2025 12:07:15 07/23/2007/23/2025 PT/IN R Protime 47.0 Not Available [facility] ([facility]) [address] [place], [address], 07/23/2025 11:36:06 07/23/2007/23/2025 PT/IN R INR 3.9 Not Available [facility] ([facility]) [address] [place], [address], 07/23/2025 11:36:06 08/05/2008/04/2025 XR, cervi luisito spine , 2 or 3 view No observ ation record ed. [facility] [address] [place], [address], 08/07/2025 13:25:55 08/05/20 25 08/04/2025 XR, shoul vito, 2 or more view No observ ation record ed. [facility] [address] [place], [address], 08/07/2025 13:25:55 09/09/2009/08/2025 US, echoc ardio gram, trans thora cic, compl ete, w/ color flow No observ ation record ed. [facility] [address] [place], [address], 09/11/2025 09:19:21 09/15/2009/15/2025 MAMMO , scree ilya, digit al, bilat eral No observ ation record ed. [email or web address] [place] [address] [address] [place], [address], 09/16/2025 16:09:54 Result Notes None recorded. Problems Name Problem SNOMED Code Status Onset Date Resolution Date Notes Provider Name and Address Organization Details Recorded Time Depressi ve disorder 73264505 Completed 202010/14/2021 Depressi on - Status is Inactive ; 10/14/20 11:08AM by Maryellen Marmolejo PA-C, Annotati on/Adden dum; Promoted ; acuity set as *; FELISHA hamilton, [facility] 5 07:56:57 Herpes zoster 7202570 Completed 202201/02/2025 SHINGLES FELISHA hamilton [facility] 5 07:56:03 Dysthymi a 60978947 Active 2022 DEPRESSI ON WITH ANXIETY FELISHA hamilton, [facility] 5 07:55:28 Benign essentia l hyperten jovanni 8442263 Active 2022 FELISHA DESIR null, [facility] 5 07:55:28 Gastroes ophageal reflux disease 246963949 Active 2022 FELISHA DESIR null, [facility] 5 07:55:28 Fracture of upper end of humerus 091128294 Completed 202201/02/2025 CLOSED FRACTURE OF PROXIMAL END OF RIGHT HUMERUS, SEQUELA FELISHA hamilton, [facility] 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 5 07:56:22 Atrial fibrilla tion 82986135 Active 2022 FELISHA hamilton, [facility] 3 14:45:05 Coronary atherosc lerosis 157953852 Active 2022 bare metal stents to circ and LAD 2011 FELISHA hamilton, [facility] 3 14:46:30 Iron deficien cy anemia 82526987 Active 2022 FELISHA hamilton, [facility] 5 07:55:28 Hypothyr oidism 75590596 Active 2022 FELISHA hamilton, [facility] 3 14:45:59 Anxiety 55218641 Active 2022 FELISHA hamilton, [facility] 3 14:46:54 Viral hepatiti s C 69721488 Active 2022 FELISHA DESIR null, [facility] 5 07:55:28 Moderate recurren t major depressi on 80441383 Active 2023 FELISHA DESIR null, [facility] 5 07:55:28 Need for personal care assistan ce [id number] 282770 Active 2023 FELISHA DESIR null, [facility] 5 07:55:28 Frail elderly 825395040 Active 2023 FELISHA DESIR null, [facility] 5 07:55:28 Seasonal allergic rhinitis 779822666 Active 2023 FELISHA hamilton, [facility] 5 07:55:28 Chronic pain 10965229 Active 2023 FELISHA DESIR null, [facility] 5 07:55:28 Dementia 02080638 Active 2023 FELISHA DESIR null, [facility] 5 07:55:28 Constipa tion 12970184 Active 2023 FELISHA hamilton, [facility] 5 07:55:44 Hyperlip idemia 20305024 Active 2024 FELISHA DESIR null, [facility] 5 07:59:38 Occult blood detected in feces 60678093 Active 2024 FELISHA hamilton, [facility] 5 09:13:35 Mean corpuscu lar volume above referenc e range 624415514 Active 2024 FELISHA hamilton, [facility] 5 09:14:07 Hypercal cemia 49355628 Active 2024 FELISHA hamilton [facility], [place] 5 10:07:49 Vitamin D deficien cy 06195243 Active 2024 Lyn Marmolejo MD [address] [place] [address], [address], [facility], [place] 5 12:54:55 Hyperpar athyroid ism 58541294 Active 2024 Lyn Marmolejo MD [address] [place] [address], [address], [facility], [place] 5 12:54:56 Dysuria 96179495 Active 2024 Dotty hamilton [facility], [place] 5 14:08:08 Problem Notes None recorded. Procedures Surgical History Date Name Laterality Status Provider Name and Address Organization Details Recorded Time 2024 Most Recent Mammogram completed FELISHA DESIR [facility], [facility] 5 16:09:39 2024 esophagogastroduodenoscopy completed YANELIS DESIR [facility], [place] 5 12:23:16 2024 colonoscopy completed FELISHA DESIR [facility], Diane.LJosueCJosue 5 10:20:11 2023 esophagogastroduodenoscopy completed KIARA DUCKWORTH [facility], [facility] 4 12:40:14 2023 colonoscopy completed Lyn Marmolejo MD [address] [place] [address], [address], [facility], [place] 5 10:19:30 cholecystectomy completed FELISHA [facility] 3 14:48:40 replacement of mitral valve complete d FELISHA [facility] 3 14:49:[address] [facility] 3 15:14:43 Imaging Results None recorded. Procedure Notes None recorded. Medical Equipment None Reported. Allergies Allergen ID Allergen Name Allergen Category Reaction Reaction Severity Criticality Documentation Date Start Date Code Code System Note Provider Name and Address Organization Details Recorded Time 1376 morphine medicatio n Not available Not available Not available 02/07/2023 7052 RxNorm Dotty Celis [facility] 3 10:45:47 1377 diltiazem Not available Not available Not available Not available 02/07/2023 3443 RxNorm Dottylizzie Celis [facility] 3 10:45:54 4552 Bactrim medicatio n other severe high 04/17/2023 48322 9 RxNorm do not give d/t couma din Lola Vidal [facility] 4 13:34:33 45997 diltiazem hydrochlo ride medicatio n Not available Not available Not available 05/26/202301670 1 RxNorm Comme nt: Recor ded 12/29 7:56A M by Yanelis Kitchen on, NAVIGATION TEACHER, 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 ; Promo talib; Signi fican ce: *; Reaso n: Drug aller gy; ; FELISHA [facility] 3 12:26:44 77450 morphine sulfate medicatio n Not available Not available Not available 05/26/2023 14145 RxNorm Comme nt: Recor ded 12/29 7:56A M by Yanelis Kitchen on, NAVIGATION TEACHER, 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 ; Promo talib; Signi fican ce: *; Reaso n: Drug aller gy; ; FELISHA DESIR [facility] 3 12:26:48 Medications Name Sig [...] THSC Levothyro xine Sodium daily 06/08 completed 34408; Recorded 01/09/20 6:06PM by Shirley Quevedo (Authori zed through Travis Sousa MD), Refill Request; Refill Quantity : 30; Tablet; Not Available Not Available Not Available galantami ne 04/17 completed Not Available Not Available Not Available Potassium Chloride ER twice daily 06/08 completed 436; Recorded 03/13/20 22 3:22PM by Felisha Desir LPN (Authori pushpad through [...] Social History Question Answer Notes LastModified by [employer] Details LastModified Time Tobacco Smoking Status Former Smoker FELISHA hamilton [facility] 04/17/2023 14:48:01 What Was The Date Of Your Most Recent Tobacco Screening? 05/27/2025 [email or web address] Information not available 05/27/2025 Sex: Unknown Functional Status Question Answer Note LastModified by Organizat ion Details LastModified Time Do you use any illicit or recreational drugs? No [email or web address] Information not available 04/17/2023 Do you or have you ever used any other forms of tobacco or nicotine? No [email or web address] Information not available 06/29/2023 What is your level of alcohol consumption? None Information not available 04/17/2023 Mental Status None recorded. Family History Relationship Description Onset Age of this Age Resolved Age Notes LastModified by Organization Details LastModified Time Unspecified Relation Coronary atherosclero sis [email or web address] Not available 06/29 15:13:48 Medical History No medical history recorded. Gynecological History Statement/Question Response Most Recent Mammogram 09/15/2025 Obstetrics History GPAL:G 0 P 0 0 0 0 Immunizations Vaccine Type Date Status Note Provider Corey oscar and Address Organization Details Recorded Time Influenza, MDCK, quadrivalent, PF completed FELISHA hamilton [facility] 10/10/2024 08:38:58 COVID-19, mRNA, LNP-S, PF, 100 mcg/0.5mL dose or 50 mcg/0.25mL dose 1 completed FELISHA hamilton, [facility] 10/10/2024 08:38:58 COVID-19, mRNA, LNP-S, PF, 100 mcg/0.5mL dose or 50 mcg/0.25mL dose 1 completed FELISHA hamilton, [facility] 10/10/2024 08:38:58 COVID-19, mRNA, LNP-S, PF, 100 mcg/0.5mL dose or 50 mcg/0.25mL dose 2 [facility] 10/10/2024 08:38:58 Pneumococcal conjugate PCV20, polysaccharide WBQ343 conjugate, adjuvant, PF 3 completed FELISHA hamilton, [facility] 10/10/2024 08:38:58 COVID-19, mRNA, LNP-S, bivalent, PF, 50 mcg/0.5 mL or 25mcg/0.25 mL dose 3 [facility] 10/10/2024 08:38:58 pneumococcal polysaccharide PPV23 3 completed FELISHA hamilton, [facility] 04/17/2023 12:02:00 Tdap 1 [facility] 10/10/2024 08:38:58 Influenza, split virus, trivalent, PF 3 [facility] 04/17/2023 12:02:00 influenza, split (incl. purified surface antigen) 0 completed FELISHA hamilton, [facility] 04/17/2023 12:02:00 Hep A, adult 1 completed FELISHA DESIR null, [facility] 10/10/2024 08:38:58 Hep A, adult 9 completed FELISHA DESIR null, [facility] 10/10/2024 08:38:58 Influenza, split virus, quadrivalent, PF 1 completed FELISHA DESIR null, [facility] 10/10/2024 08:38:58 Influenza, split virus, quadrivalent, PF 9 completed FELISHA DESIR null, [facility] 10/10/2024 08:38:58 Influenza, MDCK, trivalent, PF 4 completed FELISHA DESIR null, [facility] 10/10/2024 08:38:58 Influenza, MDCK, quadrivalent, preservative 3 completed FELISHA DESIR null, [facility] 10/10/2024 08:38:58 pneumococcal polysaccharide PPV23 8 completed Lola Vidal null, [facility] 07/02/2024 08:41:52 Influenza, split virus, quadrivalent, PF 8 completed Lola Vidal null, [facility] 07/02/2024 08:41:52 zoster recombinant 3 completed Lola Vidal null, [facility] 07/02/2024 14:52:40 COVID-19, mRNA, LNP-S, PF, 50 mcg/0.5 mL 4 completed FELISHA DESIR null, [facility] 10/10/2024 08:38:58 Influenza, MDCK, trivalent, preservative 4 completed FELISHA DESIR [facility] 10/10/2024 08:38:58 Past Encounters Encounter ID Performer Location Encounter Start Date Encounter Closed Date Diagnosis/Indication Diagnosis SNOMED-CT Code Diagnosis ICD10 Code Diagnosis IMO Codes Diagnosis Note [id number] Lyn Marmolejo MD [facility] ([facility]) [address] [place] [address] 06/24/2025 12:18:01 06/30/2025 13:41:59 Hyperparathyroidism 08335299 E21.3 67135 corrected and ionized calcium are normalgfr 52 and stable Vitamin D deficiency 347 56782 E55.9 54106 [id number] Lyn Marmolejo MD [facility] ([facility]) [address] [place] [address] 07/01/2025 10:24:23 07/02/2025 11:29:38 Atrial fibrillation 08668706 I48.91 warfarin therapy [id number] Lyn Marmolejo MD [facility] ([facility]) [address] [place] [address] 07/03/2025 08:14:55 07/13/2025 10:06:37 Benign essential hypertension 6452822 I10 Coronary atherosclerosis 031303127 I25.119 Atrial fibrillation 4943 6004 I48.91 warfarin therapyd/c naproxen d/t hx of bleeding Hyperlipidemia 18936351 E78.00 Hypothyroidism 40582028 E03.9 Hyperparathyroidism 6699 9008 E21.3 69298 [id number] Lyn aMrmolejo MD [facility] ([facility]) [address] [place] [address] 5 07/06/2025 11:22:40 07/07/2025 09:33:46 History of mechanical prosthetic mitral valve replacement 725010095 Z95.2 [id number] Lyn Marmolejo MD [facility] ([facility]) [address] [place] [address] 5 07/09/2025 13:42:58 07/10/2025 14:24:59 Atrial fibrillation 41750824 I48.91 warfarin therapyd/c naproxen d/t hx of bleeding [id number] Lyn Marmolejo MD [facility] ([facility]) [address] [place] [address] 07/14/2025 13:52:08 07/15/2025 10:22:44 Dysuria 86354531 R30.0 27826 will call with ua results [id number] Lyn Marmolejo MD [facility] ([facility]) [address] [place] [address] 07/16/2025 12:05:46 07/17/2025 11:01:38 Atrial fibrillation 46784180 I48.91 warfarin therapyd/c naproxen d/t hx of bleeding [id number] Lyn Marmolejo MD [facility] ([facility]) [address] [place] [address] 07/23/2025 11:35:38 07/24/2025 12:08:17 Atrial fibrillation 76210053 I48.91 warfarin therapyd/c naproxen d/t hx of bleeding Health Concerns Section Related Observation LastModified by Organization Detai ls LastModified Time None Recorded Concern Status LastModified by Organization Details LastModified Time None Recorded Payers Encounter Date Sequence Insurance Name Policy Number Policy Hernandez Covered Member ID Hernandez Member ID Guarantor Name 07/23/2025 1 [place]ANT[place] - [place]PO) [id number] Odilia Ulloa [id number] Odilia Ulloa 07/23/2025 2 [place] Odilia Ulloa [id number] Odilia Ulloa OBGyn Episode No OBEpisode recorded.
--- OUTSIDE RECORDS SUMMARY | 2025-09-19 05:40 | XMS_ITS | Encounter Summary ---
Author Organization [facility] Address [address] [place] [address] Care Team Providers Care Release Of Information Specialist Name Role Phone Rico Muñiz MD, Sharan Jaime Primary Care Provider Encounter Details Date Type Department Care Team (Latest Contact Info) Description 06/24/2001 Outpatient Historical [facility] [address] [place] [address] Serge Arrington MD [address] [place] [address] Unspecified congenital anomaly of heart (Primary Dx) Social History Tobacco Use Types Packs/Day Years Used Date Smoking Tobacco: Never Assessed Comments Unknown Sex and Gender Information Value Date Recorded Sex Assigned at Not on file 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
--- OUTSIDE RECORDS SUMMARY | 2025-09-19 05:40 | XMS_ITS | Encounter Summary ---
Author Organization [facility] Address [address] [facility] Attn: [place] [address] Care Team Providers Care Composite Science Teacher Name Role Phone Rico Muñiz MD, Sharan Jaime Primary Care Provider Encounter Details Date Type Department Care Team (Late st Contact Info) Description 12/20/2001 Outpatient Historical Sharan Gómez Jr., MD [address] [place] [address] Social History Tobacco Use Types Packs/Day Years Used Date Smoking Tobacco: Never Assessed Comments Unknown Sex and Gender Information Value Date Recorded Sex Assigned at Not on file Legal Sex Female 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
--- OUTSIDE RECORDS SUMMARY | 2025-09-19 05:40 | XMS_ITS | Encounter Summary ---
Author Organization [facility] Address [address] [place] [address] Care Team Providers Care Tool And Die Maker/Designer Name Role Phone Rico Muñiz MD, Sharan Jaime Primary Care Provider Encounter Details Date Type Department Care Team (Latest Contact Info) Description 06/28/2001 Outpatient Historical 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
--- OUTSIDE RECORDS SUMMARY | 2025-09-19 05:40 | XMS_ITS | Encounter Summary ---
Author Organization [facility] Address [address] [place] [address] Care Team Providers Care Clinical Team Lead Name Role Phone Rico Muñiz MD, Sharan Jaime Primary Care Provider Encounter Details Date Type Department Care Team (Latest Contact Info) Description 11/28/2001 Outpatient Historical [facility] Sharan Gómez Jr., MD [address] [place] [address] URIN TRACT INFECTION NOS (Primary Dx); [facility] ANTICOAG USE Social History Tobacco Use Types Packs/Day Years Used Date Smoking Tobacco: Never Assessed Comments Unknown Sex and Gender Information Value Date Recorded Sex Assigned at Not on file 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 [place] [address] PCP - General 08/10/05 documented as of this encounter
--- OUTSIDE RECORDS SUMMARY | 2025-09-19 05:41 | XMS_ITS | Encounter Summary ---
Author Organization [facility] Address [address] [place] [address] Care Team Providers Care Cardiovascular Specialist Name Role Phone Rico Muñiz MD, Sharan Jaime Primary Care Provider Encounter Details Date Type Department Care Team (Latest Contact Info) Description 09/12/2000 Outpatient Historical [facility] Sharan Gómez Jr., MD [address] [place] [address] Other and unspecified hyperlipidemia (Primary Dx); Other nonspecific finding on examination of urine; Personal history of other disorder of urinary system; ad terminal makeup operator (current) use of anticoagulants Social History Tobacco Use Types Packs/Day Years Used Date Smoking Tobacco: Never Assessed Comments Unknown Sex and Gender Information Value Date Recorded Sex Assigned at Not on file 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 Gender Identity Not on file Sexual Orientation Not on file documented as of this encounter Plan of Treatment Not on file documented as of this encounter Visit Diagnoses Diagnosis Other and unspecified hyperlipidemia- Primary Other nonspecific finding on examination of urine Personal history of other disorder of urinary system ad terminal makeup operator (current) use of anticoagulants Long-term (current) use of anticoagulants documented in this encounter Care Teams Cardiovascular Specialist Relationship Specialty Start Date End Date Sharan Gómez Jr., MD [address] [place] [address] PCP - General 08/10/05 documented as of this encounter
--- OUTSIDE RECORDS SUMMARY | 2025-09-19 05:41 | XMS_ITS | Continuity of Care Document ---
Author Organization DAI Haas [facility] [place], [facility] ([facility]) Address [address] [place] [address] Care Team Providers Care Radio Equipment Installer Name Role Phone LYN MARMOLEJO Primary Care Provider Assessment No assessment recorded. Plan of Treatment Reminders Order Date Submit Date Provider Last Modified By Organization Details Last Modified Time Details Appointments None record ed. Lab PT/INR 025 07/30/20 25 QU[facility]), [address] [place], [address], 11:49:49 Referral None record ed. Procedures None record ed. Surgeries None record ed. Imaging None record ed. Medication Orders None record ed. Patient TargetsNo targets recorded. Patient InstructionsNo instructions recorded. Reason for Referral None Reported. Results Created Date Observation Date Name Description Value Unit Range Abnormal Flag Note LastModifiedBy Organization Detail LastModifiedTime 07/02/2007/02/2025 PT/IN R Protime 42.3 Not Available [facility]) [address] [place], [address], 07/01/2025 10:25:07 07/02/20 25 07/02/2025 PT/IN R INR 3.5 Not Available [facility] [address] [place], [address], 07/01/2025 10:25:07 07/06/20 25 07/06/2025 PT/IN R Protime 39.5 Not Available [facility]) [address] [place], [address], 07/06/2025 11:23:26 07/06/20 25 07/06/2025 PT/IN R INR 3.3 Not Available [facility]) [address] [place], [address], 07/06/2025 11:23:26 07/09/20 25 07/09/2025 PT/IN R Protime 34.6 Not Available [facility]) [address] [place], [address], 07/09/2025 13:44:17 07/09/20 25 07/09/2025 PT/IN R INR 2.9 Not Available [facility] [address] [place], [address], 07/09/2025 13:44:17 07/14/20 25 07/14/2025 URINA LYSIS WITH MICRO color YELLOW Not Available [facility] [address] [facility] [address], [place], [address], 07/14/2025 14:52:32 07/14/20 25 07/14/2025 URINA LYSIS WITH MICRO clarity CLEAR Not Available [facility] [address] [facility] [address], [place], [address], 07/14/2025 14:52:32 07/14/20 25 07/14/2025 URINA LYSIS WITH MICRO glu NEGATI VE Not Available [facility] [address] [facility] [address], [address], 07/14/2025 14:52:32 07/14/20 25 07/14/2025 URINA LYSIS WITH MICRO bili NEGATI VE Not Available [facility] [address] [facility] [address] [facility] [address], [place], [address], 07/14/2025 14:52:32 07/14/20 25 07/14/2025 URINA LYSIS WITH MICRO ket NEGATI VE Not Available [facility] [address], [place], [address], 07/14/2025 14:52:32 07/14/2007/14/2025 URINA LYSIS WITH MICRO S.g 1.010 1.005- 1.025 Not Available [facility] [address], [place], [address], 07/14/2025 14:52:32 07/14/20 25 07/14/2025 URINA LYSIS WITH MICRO pH 5.0 5.0-7. 0 Not Available [facility] [address], [place], [address], 07/14/2025 14:52:32 07/14/20 25 07/14/2025 URINA LYSIS WITH MICRO pro NEGATI VE Not Available [facility] [address], [place], [address], 07/14/2025 14:52:32 07/14/20 25 07/14/2025 URINA LYSIS WITH MICRO uro 0.2 E.U./D L Not Available [facility] [address], [place], [address], 07/14/2025 14:52:32 07/14/2007/14/2025 URINA LYSIS WITH MICRO nit NEGATI VE Not Available [facility] [address], [place], [address], 07/14/2025 14:52:32 07/14/20 25 07/14/2025 URINA LYSIS WITH MICRO blo NEGATI VE Not Available [facility] [address] [facility] [address], [place], [address], 07/14/2025 14:52:32 07/14/20 25 07/14/2025 URINA LYSIS WITH MICRO jose elias NEGATI VE Not Available [facility] [address] [facility] [address], [place], [address], 07/14/2025 14:52:32 07/14/20 25 07/14/2025 URINA LYSIS WITH MICRO WBC 0-1 abnormal Not Available [facility] [address] [facility] [address], [place], [address], 07/14/2025 14:52:32 07/14/20 25 07/14/2025 URINA LYSIS WITH MICRO RBC NEGATI VE Not Available [facility] [address] [facility] [address], [place], [address], 07/14/2025 14:52:32 07/14/20 25 07/14/2025 URINA LYSIS WITH MICRO epi cells 1-2 abnormal Not Available [facility] [address] [facility] [address], [place], [address], 07/14/2025 14:52:32 07/14/20 25 07/14/2025 URINA LYSIS WITH MICRO bacteria 1-2 HYALIN E CAST abnormal Not Available [facility] [address] [facility] [address], [place], [address], 07/14/2025 14:52:32 07/14/20 25 07/14/2025 URINA LYSIS WITH MICRO other NEG Not Available [facility] [address] [facility] [address], [place], [address], 07/14/2025 14:52:32 07/14/20 25 07/16/2025 CULTU RE, URINE , ROUTI NE culture, urine, routine SEE NOTE CULTU RE, URINE , ROUTI NE Micro Numbe r: [id number] Test Statu s: Final Speci men Sourc e: Urine Speci men Quali ty: Adequ ate Resul t: No Growt h Not Available [facility] [address] [place], [address], 07/16/2025 02:51:13 07/17/2007/17/2025 PT/IN R Protime 34.4 Not Available [facility] [address] [place], [address], 07/16/2025 12:07:15 07/17/2007/17/2025 PT/IN R INR 2.9 Not Available [facility] [address] [place], [address], 07/16/2025 12:07:15 07/23/2007/23/2025 PT/IN R Protime 47.0 Not Available [facility] [address] [place], [address], 07/23/2025 11:36:06 07/23/2007/23/2025 PT/IN R INR 3.9 Not Available [facility] [address] [place], [address], 07/23/2025 11:36:06 07/30/2007/30/2025 PT/IN R Protime 30.2 Not Available [facility] [address] [place], [address], 07/30/2025 11:33:15 07/30/2007/30/2025 PT/IN R INR 2.5 Not Available [facility]) [address] [place], [address], 07/30/2025 11:33:15 08/05/2008/04/2025 XR, cervi luisito spine , 2 or 3 view No observ ation record ed. [facility] [address] [place], [address], 08/07/2025 13:25:55 08/05/20 25 08/04/2025 XR, shoul vito, 2 or more view No observ ation record ed. [facility] [address] [place], [address], 08/07/2025 13:25:55 09/09/20 25 09/08/2025 US, echoc ardio gram, trans thora cic, compl ete, w/ color flow No observ ation record ed. [facility] [address] [place], [address], 09/11/2025 09:19:21 09/15/2009/15/2025 MAMMO , scree ilya, digit al, bilat eral No observ ation record ed. [email or web address] [place] [address] [address] [place], [address], 09/16/2025 16:09:54 Result Notes None recorded. Problems Name Problem SNOMED Code Status Onset Date Resolution Date Notes Provider Name and Address Organization Details Recorded Time Depressi ve disorder 29860913 Completed 202010/14/2021 Depressi on - Status is Inactive ; 10/14/20 11:08AM by Maryellen Marmolejo PA-C, Annotati on/Adden dum; Promoted ; acuity set as *; FELISHA hamilton, [facility] 5 07:56:57 Herpes zoster 5373633 Completed 202201/02/2025 SHINGLES FELISHA hamilton [facility] 5 07:56:03 Dysthymi a 68355680 Active 2022 DEPRESSI ON WITH ANXIETY FELISHA hamilton, [facility] 5 07:55:28 Benign essentia l hyperten jovanni 1519873 Active 2022 FELISHA DESIR null, [facility] 5 07:55:28 Gastroes ophageal reflux disease 540001024 Active 2022 FELISHA DESIR null, [facility] 5 07:55:28 Fracture of upper end of humerus 575885030 Completed 202201/02/2025 CLOSED FRACTURE OF PROXIMAL END OF RIGHT HUMERUS, SEQUELA FELISHA hamilton, [facility] 5 07:56:03 History of jewelry mechanic al prosthet ic mitral valve replacem ent 211621990 Active 2022 FELISHA hamilton, [facility] 5 07:56:22 Atrial fibrilla tion 13348036 Active 2022 FELISHA hamilton, [facility] 3 14:45:05 Coronary atherosc lerosis 399047494 Active 2022 bare metal stents to circ and LAD 2011 FELISHA hamilton, [facility] 3 14:46:30 Iron deficien cy anemia 64803634 Active 2022 FELISHA hamilton, [facility] 5 07:55:28 Hypothyr oidism 46350765 Active 2022 FELISHA hamilton, [facility] 3 14:45:59 Anxiety 45837927 Active 2022 FELISHA hamilton, [facility] 3 14:46:54 Viral hepatiti s C 68795938 Active 2022 FELISHA DESIR null, [facility] 5 07:55:28 Moderate recurren t major depressi on 06140687 Active 2023 FELISHA DESIR null, [facility] 5 07:55:28 Need for personal care assistan ce 87433032705 707229 Active 2023 FELISHA DESIR null, [facility] 5 07:55:28 Frail elderly 929414692 Active 2023 FELISHA DESIR null, [facility] 5 07:55:28 Seasonal allergic rhinitis 146204531 Active 2023 FELISHA hamilton, [facility] 5 07:55:28 Chronic pain 29244797 Active 2023 FELISHA DESIR null, [facility] 5 07:55:28 Dementia 55348963 Active 2023 FELISHA DESIR null, [facility] 5 07:55:28 Constipa tion 64979926 Active 2023 FELISHA hamilton, [facility] 5 07:55:44 Hyperlip idemia 50906480 Active 2024 FELISHA DESIR null, [facility] 5 07:59:38 Occult blood detected in feces 30180083 Active 2024 FELISHA hamilton, [facility] 5 09:13:35 Mean corpuscu lar volume above referenc e range 021169758 Active 2024 FELISHA hamilton, [facility] 5 09:14:07 Hypercal cemia 85022165 Active 2024 FELISHA hamilton [facility] [place] 5 10:07:49 Vitamin D deficien cy 26230192 Active 2024 Lyn Marmolejo MD [address] [place] [address], [address], [facility], [place] 5 12:54:55 Hyperpar athyroid ism 26917303 Active 2024 Lyn Marmolejo MD [address] [place] [address], [address], [facility], [place] 5 12:54:56 Dysuria 97828899 Active 2024 Dotty hamilton [facility] [place] 5 14:08:08 Problem Notes None recorded. Procedures Surgical History Date Name Laterality Status Provider Name and Address Organization Details Recorded Time 2024 Most Recent Mammogram completed FELISHA DESIR [facility], [facility]ice[facility] 5 16:09:39 2024 esophagogastroduodenoscopy completed YANELIS DESIR [facility], [place] 5 12:23:16 2024 colonoscopy completed FELISHA DESIR [facility], Diane.LJosueCJosue 5 10:20:11 2023 esophagogastroduodenoscopy completed KIARA DUCKWORTH [facility], ClariceLDaisy 4 12:40:14 2023 colonoscopy completed Lyn Marmolejo MD [address] [place] [address], [address], [facility], [place] 5 10:19:30 cholecystectomy completed FELISHA [facility] 3 14:48:40 replacement of mitral valve complete d FELISHA [facility] 3 14:49:22 section completed [facility] 3 15:14:43 Imaging Results None recorded. Procedure Notes None recorded. Medical Equipment None Reported. Allergies Allergen ID Allergen Name Allergen Category Reaction Reaction Severity Criticality Documentation Date Start Date Code Code System Note Provider Name and Address Organization Details Recorded Time 1376 morphine medicatio n Not available Not available Not available 02/07/2023 7052 RxNorm Dotty Celis [facility] 3 10:45:47 1377 diltiazem Not available Not available Not available Not available 02/07/2023 3443 RxNorm Dottylizzie Celis [facility] 3 10:45:54 4552 Bactrim medicatio n other severe high 04/17/2023 70327 9 RxNorm do not give d/t couma din Lola Vidal [facility] 4 13:34:33 28538 diltiazem hydrochlo ride medicatio n Not available Not available Not available 05/26/202355655 1 RxNorm Comme nt: Recor ded 12/29 7:56A M by Yanelis Kitchen on, LION TRAINER, 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 ; Promo talib; Signi fican ce: *; Reaso n: Drug aller gy; ; FELISHA [facility] 3 12:26:44 21582 morphine sulfate medicatio n Not available Not available Not available 05/26/2023 66105 RxNorm Comme nt: Recor ded 12/29 7:56A M by Yanelis Kitchen on, LION TRAINER, 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 ; Promo talib; Signi fican ce: *; Reaso n: Drug aller gy; ; FELISHA DESIR [facility] 3 12:26:48 Medications Name Sig [...] THSC Levothyro xine Sodium daily 06/08 completed 75652; Recorded 01/09/20 6:06PM by Shirley Quevedo (Authori [...] Social History Question Answer Notes LastModified by [employer] Details LastModified Time Tobacco Smoking Status Former Smoker FELISHA hamilton [facility] 04/17/2023 14:48:01 What Was The Date Of Your Most Recent Tobacco Screening? 05/27/2025 [email or web address] Information not available 05/27/2025 Sex: Unknown Functional Status Question Answer Note LastModified by Organizat ion Details LastModified Time Do you use any illicit or recreational drugs? No [email or web address] Information not available 04/17/2023 Do you or have you ever used any other forms of tobacco or nicotine? No [email or web address] Information not available 06/29/2023 What is your level of alcohol consumption? None [email or web address] Information not available 04/17/2023 Mental Status None recorded. Family History Relationship Description Onset Age of this Age Resolved Age Notes LastModified by Organization Details LastModified Time Unspecified Relation Coronary atherosclero sis [email or web address] Not available 06/29 15:13:48 Medical History No medical history recorded. Gynecological History Statement/Question Response Most Recent Mammogram 09/15/2025 Obstetrics History GPAL:G 0 P 0 0 0 0 Immunizations Vaccine Type Date Status Note Provider Corey oscar and Address Organization Details Recorded Time Influenza, MDCK, quadrivalent, PF completed FELISHA hamilton [facility] 10/10/2024 08:38:58 COVID-19, mRNA, LNP-S, PF, 100 mcg/0.5mL dose or 50 mcg/0.25mL dose 1 completed FELISHA hamilton, [facility] 10/10/2024 08:38:58 COVID-19, mRNA, LNP-S, PF, 100 mcg/0.5mL dose or 50 mcg/0.25mL dose 1 completed FELISHA hamilton, [facility] 10/10/2024 08:38:58 COVID-19, mRNA, LNP-S, PF, 100 mcg/0.5mL dose or 50 mcg/0.25mL dose 2 [facility] 10/10/2024 08:38:58 Pneumococcal conjugate PCV20, polysaccharide [id number] conjugate, adjuvant, PF 3 completed FELISHA hamilton, [facility] 10/10/2024 08:38:58 COVID-19, mRNA, LNP-S, bivalent, PF, 50 mcg/0.5 mL or 25mcg/0.25 mL dose 3 [facility] 10/10/2024 08:38:58 pneumococcal polysaccharide PPV23 3 completed FELISHA hamilton, [facility] 04/17/2023 12:02:00 Tdap 1 [facility] 10/10/2024 08:38:58 Influenza, split virus, trivalent, PF 3 [facility] 04/17/2023 12:02:00 influenza, split (incl. purified surface antigen) 0 completed FELISHA hamilton, [facility] 04/17/2023 12:02:00 Hep A, adult 1 completed FELISHA DESIR null, [facility] 10/10/2024 08:38:58 Hep A, adult 9 completed FELISHA DESIR null, [facility] 10/10/2024 08:38:58 Influenza, split virus, quadrivalent, PF 1 completed FELISHA DESIR null, [facility] 10/10/2024 08:38:58 Influenza, split virus, quadrivalent, PF 9 completed FELISHA DESIR null, [facility] 10/10/2024 08:38:58 Influenza, MDCK, trivalent, PF 4 completed FELISHA DSEIR null, [facility] 10/10/2024 08:38:58 Influenza, MDCK, quadrivalent, preservative 3 completed FELISHA DESIR null, [facility] 10/10/2024 08:38:58 pneumococcal polysaccharide PPV23 8 completed Lola Vidal null, [facility] 07/02/2024 08:41:52 Influenza, split virus, quadrivalent, PF 8 completed Lola Vidal null, [facility] 07/02/2024 08:41:52 zoster recombinant 3 completed Lola Vidal null, [facility] 07/02/2024 14:52:40 COVID-19, mRNA, LNP-S, PF, 50 mcg/0.5 mL 4 completed FELISHA DESIR null, [facility] 10/10/2024 08:38:58 Influenza, MDCK, trivalent, preservative 4 completed FELISHA DESIR [facility] 10/10/2024 08:38:58 Past Encounters Encounter ID Performer Location Encounter Start Date Encounter Closed Date Diagnosis/Indication Diagnosis SNOMED-CT Code Diagnosis ICD10 Code Diagnosis IMO Codes Diagnosis Note [id number] Lyn Marmolejo MD [facility] ([facility]) [address] [place], [place] [address] 07/01/2025 10:24:23 07/02/2025 11:29:38 Atrial fibrillation 06123096 I48.91 warfarin therapy [id number] Lyn Marmolejo MD [facility] ([facility]) [address] [place], [place] [address] 07/03/2025 08:14:55 07/13/2025 10:06:37 Benign essential hypertension 3494586 I10 Coronary atherosclerosis 570382728 I25.119 Atrial fibrillation 4943 6004 I48.91 warfarin therapyd/c naproxen d/t hx of bleeding Hyperlipidemia 56973890 E78.00 Hypothyroidism 73895637 E03.9 Hyperparathyroidism 6699 9008 E21.3 06804 [id number] Lyn Marmolejo MD [facility] ([facility]) [address] [place] [address] 07/06/2025 11:22:40 07/07/2025 09:33:46 History of mechanical prosthetic mitral valve replacement 377605805 Z95.2 [id number] Lyn Marmolejo MD [facility] ([facility]) [address] [place] [phone] 07/09/2025 13:42:58 07/10/2025 14:24:59 Atrial fibrillation 94911649 I48.91 warfarin therapyd/c naproxen d/t hx of bleeding [id number] Lyn Marmolejo MD [facility] ([facility]) [address] [place] [phone] 5 07/14/2025 13:52:08 07/15/2025 10:22:44 Dysuria 45317028 R30.0 09167 will call with ua results [id number] Lyn Marmolejo MD [facility] ([facility]) [address] [place] [address] 07/16/2025 12:05:46 07/17/2025 11:01:38 Atrial fibrillation 26251225 I48.91 warfarin therapyd/c naproxen d/t hx of bleeding [id number] Lyn Marmolejo MD [facility] ([facility]) [address] [place] [address] 07/23/2025 11:35:38 07/24/2025 12:08:17 Atrial fibrillation 56483225 I48.91 warfarin therapyd/c naproxen d/t hx of bleeding [id number] Lyn Marmolejo MD [facility] ([facility]) [address] [place] [address] 5 07/30/2025 11:32:37 07/31/2025 09:44:15 History of mechanical prosthetic mitral valve replacement 171483242 Z95.2 Health Concerns Section Related Observation LastModified by Organization Detai ls LastModified Time None Recorded Concern Status LastModified by Organization Details LastModified Time None Recorded Payers Encounter Date Sequence Insurance Name Policy Number Policy Hernandez Covered Member ID Hernandez Member ID Guarantor Name 07/30/2025 1 [id number]ANT[place] - [place]PO) [id number] Odilia Ulloa [id number] Odilia Ulloa 07/30/2025 2 [place] Odilia Ulloa [id number] Odilia Ulloa OBGyn Episode No OBEpisode recorded.
--- OUTSIDE RECORDS SUMMARY | 2025-09-19 05:41 | XMS_ITS | Encounter Summary ---
Author Organization [facility] Address [address] [place] [address] Care Team Providers Care Car Dropper Name Role Phone Rico Muñiz MD, Sharan Jaime Primary Care Provider Encounter Details Date Type Department Care Team (Latest Contact Info) Description 06/18/1998 Outpatient Historical [facility] Int Luis AFaisal Lopez [place] [address] [place] [id number] Serge Arrington MD [address] [place] [address] Mitral valve disorder (Primary Dx); Unspecified essential hypertension; Hematuria; Routine medical exam Social History Tobacco Use Types Packs/Day Years Used Date Smoking Tobacco: Never Assessed Comments Unknown Sex and Gender Information Value Date Recorded Sex Assigned at Not on file 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
--- OUTSIDE RECORDS SUMMARY | 2025-09-19 05:41 | XMS_ITS | Encounter Summary ---
Author Organization [facility] Address [address] [facility] Attn: [place] [address] Care Team Providers Care Golf Caddy Name Role Phone Rico Muñiz MD, Sharan Jaime Primary Care Provider Encounter Details Date Type Department Care Team (Late st Contact Info) Description 06/22/2000 Outpatient Historical Serge Arrington MD [address] [facility] [address] [place] [id number] Social History Tobacco Use Types Packs/Day Years Used Date Smoking Tobacco: Never Assessed Comments Unknown Sex and Gender Information Value Date Recorded Sex Assigned at Not on file 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
--- OUTSIDE RECORDS SUMMARY | 2025-09-19 05:41 | XMS_ITS | Encounter Summary ---
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
--- OUTSIDE RECORDS SUMMARY | 2025-09-19 05:41 | XMS_ITS | Encounter Summary ---
Author Organization [facility] Address [address] [place] [address] Care Team Providers Care Automation Qa Analyst Name Role Phone Rico Muñiz MD, Sharan Jaime Primary Care Provider Encounter Details Date Type Department Care Team (Latest Contact Info) Description 04/07/2002 Outpatient Historical [facility] Sharan Gómez Jr., MD [address] [place] [address] ENDOCARDITIS NOS (Primary Dx); DIABETES UNCOMPL ADULT-TYPE II (CMS/HCC); HYPERTENSION NOS; AFTERCARE RETIREMENT ANTICOAG USE Social History Tobacco Use Types Packs/Day Years Used Date Smoking Tobacco: Never Assessed Comments Unknown Sex and Gender Information Value Date Recorded Sex Assigned at Not on file Legal Sex 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 Gender Identity Not on file Sexual Orientation Not on file documented as of this encounter Plan of Treatment Not on file documented as of this encounter Visit Diagnoses Diagnosis Endocarditis, valve unspecified, unspecified cause- Primary Type II or unspecified type diabetes mellitus without mention of complication, not stated as uncontrolled Unspecified essential hypertension bed bug exterminator (current) use of anticoagulants Long-term (current) use of anticoagulants documented in this encounter Care Teams Automation Qa Analyst Relationship Specialty Start Date End Date Sharan Gómez Jr., MD [address] [place] [address] PCP - General 08/10/05 documented as of this encounter
--- OUTSIDE RECORDS SUMMARY | 2025-09-19 05:41 | XMS_ITS | Encounter Summary ---
Author Organization [facility] Address [address] [place] [address] Care Team Providers Care Educational Consultant Name Role Phone Rico Muñiz MD, Sharan Jaime Primary Care Provider Encounter Details Date Type Department Care Team (Latest Contact Info) Description 08/16/2000 Outpatient Historical [facility] Sharan Gómez Jr., MD [address] [place] [address] Pure hypercholesterolem (Primary Dx); Unspecified essential hypertension; Encounter for long-term (current) use of other medications Social History Tobacco Use Types Packs/Day Years Used Date Smoking Tobacco: Never Assessed Comments Unknown Sex and Gender Information Value Date Recorded Sex Assigned at Not on file 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
--- OUTSIDE RECORDS SUMMARY | 2025-09-19 05:41 | XMS_ITS | Encounter Summary ---
Author Organization [facility] Address [address] [place] [address] Care Team Providers Care Combat Engineer Name Role Phone Rico Muñiz MD, Sharan Jaime Primary Care Provider Encounter Details Date Type Department Care Team (Latest Contact Info) Description 06/28/2000 Outpatient Historical [facility] Sharan Gómez Jr., MD [address] [place] [address] Pure hypercholesterolem (Primary Dx); Hypopotassemia; Heart valve replaced by other means Social History Tobacco Use Types Packs/Day Years Used Date Smoking Tobacco: Never Assessed Comments Unknown Sex and Gender Information Value Date Recorded Sex Assigned at Not on file 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
--- OUTSIDE RECORDS SUMMARY | 2025-09-19 05:41 | XMS_ITS | Continuity of Care Document ---
Author Organization DAI [facility], [place], [facility] ([facility]) Address [address] [place] [address] Care Team Providers Care Service Superintendent Name Role Phone LYN MARMOLEJO Primary Care Provider Assessment No assessment recorded. Plan of Treatment Reminders Order Date Submit Date Provider Last Modified By Organization Details Last Modified Time Details Appointments None recorded. Lab urinalysis , complete [id number] [facility], [address] [facility] [place], [address], 15:25:12 culture, urine 2024 025 [facility], [address] [place] [address] [address] [place], [address], 5 02:51:13 Referral None recorded. Procedures None recorded. Surgeries None recorded. Imaging None recorded. Medication Orders None recorded. Patient TargetsNo targets recorded. Patient InstructionsNo instructions recorded. Reason for Referral None Reported. Results Created Date Observation Date Name Description Value Unit Range Abnormal Flag Note LastModifiedBy Organization Detail LastModifiedTime 06/24/2006/24/2025 PT/IN R Protime 40.9 Not Available [facility] ([facility]) [address] [place], [address], 06/24/2025 13:13:54 06/24/2006/24/2025 PT/IN R INR 3.4 Not Available [facility] ([facility]) [address] [place], [address], 06/24/2025 13:13:54 07/02/20 25 07/02/2025 PT/IN R Protime 42.3 Not Available [facility] ([facility]) [address] [place], [address], 07/01/2025 10:25:07 07/02/20 25 07/02/2025 PT/IN R INR 3.5 Not Available [facility] ([facility]) [address] [place], [address], 07/01/2025 10:25:07 07/06/20 25 07/06/2025 PT/IN R Protime 39.5 Not Available [facility] ([facility]) [address] [place], [address], 07/06/2025 11:23:26 07/06/20 25 07/06/2025 PT/IN R INR 3.3 Not Available [facility] ([facility]) [address] [place], [address], 07/06/2025 11:23:26 07/09/20 25 07/09/2025 PT/IN R Protime 34.6 Not Available [facility] ([facility]) [address] [place], [address], 07/09/2025 13:44:17 07/09/20 25 07/09/2025 PT/IN R INR 2.9 Not Available [facility] ([facility]) [address] [place], [address], 07/09/2025 13:44:17 07/14/20 25 07/14/2025 URINA LYSIS WITH MICRO color YELLOW Not Available [facility] [address], [place], [address], 07/14/2025 14:52:32 07/14/2007/14/2025 URINA LYSIS WITH MICRO clarity CLEAR Not Available [facility] [address], [place], [address], 07/14/2025 14:52:32 07/14/2007/14/2025 URINA LYSIS WITH MICRO glu NEGATI VE Not Available [facility] [address], [place], [address], 07/14/2025 14:52:32 07/14/2007/14/2025 URINA LYSIS WITH MICRO bili NEGATI VE Not Available [facility] [address], [place], [address], 07/14/2025 14:52:32 07/14/2007/14/2025 URINA LYSIS WITH MICRO ket NEGATI VE Not Available [facility] [address], [place], [address], 07/14/2025 14:52:32 07/14/20 25 07/14/2025 URINA LYSIS WITH MICRO S.g 1.010 1.005- 1.025 Not Available [facility] [place] [address], [place], [address], 07/14/2025 14:52:32 07/14/20 25 07/14/2025 URINA LYSIS WITH MICRO pH 5.0 5.0-7. 0 Not Available [facility] [place] [facility] [address], [place], [address], 07/14/2025 14:52:32 07/14/20 25 07/14/2025 URINA LYSIS WITH MICRO pro NEGATI VE Not Available [facility] [address], [place], [address], 07/14/2025 14:52:32 07/14/20 25 07/14/2025 URINA LYSIS WITH MICRO uro 0.2 E.U./D L Not Available [facility] [address], [place], [address], 07/14/2025 14:52:32 07/14/20 25 07/14/2025 URINA LYSIS WITH MICRO nit NEGATI VE Not Available [facility] [address], [place], [address], 07/14/2025 14:52:32 07/14/20 25 07/14/2025 URINA LYSIS WITH MICRO blo NEGATI VE Not Available [facility] [address], [place], [address], 07/14/2025 14:52:32 07/14/20 25 07/14/2025 URINA LYSIS WITH MICRO jose elias NEGATI VE Not Available [facility] [address], [place], [address], 07/14/2025 14:52:32 07/14/20 25 07/14/2025 URINA LYSIS WITH MICRO WBC 0-1 abnormal Not Available [facility] [address], [place], [address], 07/14/2025 14:52:32 07/14/20 25 07/14/2025 URINA LYSIS WITH MICRO RBC NEGATI VE Not Available [facility] [address], [place], [address], 07/14/2025 14:52:32 07/14/20 25 07/14/2025 URINA LYSIS WITH MICRO epi cells 1-2 abnormal Not Available [facility] [address], [place], [address], 07/14/2025 14:52:32 07/14/20 25 07/14/2025 URINA LYSIS WITH MICRO bacteria 1-2 HYALIN E CAST abnormal Not Available [facility] [address], [place], [address], 07/14/2025 14:52:32 07/14/20 25 07/14/2025 URINA LYSIS WITH MICRO other NEG Not Available [facility] [address], [place], [address], 07/14/2025 14:52:32 07/14/20 25 07/16/2025 CULTU RE, URINE , ROUTI NE culture, urine, routine SEE NOTE CULTU RE, URINE , ROUTI NE Micro Numbe r: [id number] Test Statu s: Final Speci men Sourc e: Urine Speci men Quali ty: Adequ ate Resul t: No Growt h Not Available [facility] [address] , [place], [address], 07/16/2025 02:51:13 08/05/2008/04/2025 XR, cervi luisito spine , 2 or 3 view No observ ation record ed. [facility] [address] [place], [address], 08/07/2025 13:25:55 08/05/20 25 08/04/2025 XR, shoul vito, 2 or more view No observ ation record ed. [facility] [address] [place], [address], 08/07/2025 13:25:55 09/09/20 25 09/08/2025 US, echoc ardio gram, trans thora cic, compl ete, w/ color flow No observ ation record ed. [facility] [address] [place], [address], 09/11/2025 09:19:21 09/15/20 25 09/15/2025 MAMMO , scree ilya, digit al, bilat eral No observ ation record ed. [email or web address] [facility] [address] [place], [address], 09/16/2025 16:09:54 Result Notes None recorded. Problems Name Problem SNOMED Code Status Onset Date Resolution Date Notes Provider Name and Address Organization Details Recorded Time Depressi ve disorder 20930134 Completed 202010/14/2021 Depressi on - Status is Inactive ; 10/14/20 11:08AM by Maryellen Marmolejo PA-C, Annotati on/Adden dum; Promoted ; acuity set as *; FELISHA hamilton, [facility] 5 07:56:57 Herpes zoster 7287161 Completed 202201/02/2025 SHINGLES FELISHA hamilton, [facility] 5 07:56:03 Dysthymi a 42441548 Active 2022 DEPRESSI ON WITH ANXIETY FELISHA hamilton [facility] 5 07:55:28 Benign essentia l hyperten jovanni 1383332 Active [address] [facility] 5 07:55:28 Gastroes ophageal reflux disease 887021476 Active [address] [facility] 5 07:55:28 Fracture of upper end of humerus 346568514 Completed 202201/02/2025 CLOSED FRACTURE OF PROXIMAL END OF RIGHT HUMERUS, SEQUELA FELISHA hamilton, [facility] 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 5 07:56:22 Atrial fibrilla tion 54193780 Active 2022 FELISHA DESIR null, [facility] 3 14:45:05 Coronary atherosc lerosis 119390764 Active 2022 bare metal stents to circ and LAD 2011 FELISHA DESIR null, [facility] 3 14:46:30 Iron deficien cy anemia 57810103 Active 2022 FELISHA hamilton, [facility], Diane.L.CJosue 5 07:55:28 Hypothyr oidism 04349575 Active 2022 FELISHA hamilton, [facility] 3 14:45:59 Anxiety 35892820 Active 2022 FELISHA hamilton, [facility] 3 14:46:54 Viral hepatiti s C 80248037 Active 2022 FELISHA hamilton, [facility] 5 07:55:28 Moderate recurren t major depressi on 47188241 Active 2023 FELISHA hamilton, [facility] 5 07:55:28 Need for personal care assistan ce 73746343927 708667 Active 2023 FELISHA hamilton, [facility] 5 07:55:28 Frail elderly 223443137 Active 2023 FELISHA hamilton, [facility] 5 07:55:28 Seasonal allergic rhinitis 635037381 Active 2023 FELISHA hamilton, [facility] 5 07:55:28 Chronic pain 58650791 Active 2023 FELISHA DESIR null, [facility] 5 07:55:28 Dementia 60692299 Active 2023 FELISHA DESIR null, [facility] 5 07:55:28 Constipa tion 30721585 Active 2023 FELISHA DESIR null, [facility] 5 07:55:44 Hyperlip idemia 58656785 Active 2024 FELISHA DESIR null, [facility] 5 07:59:38 Occult blood detected in feces 79633212 Active 2024 FLEISHA DESIR null, [facility] 5 09:13:35 Mean corpuscu lar volume above referenc e range 697227209 Active 2024 FELISHA DESIR null, [facility] 5 09:14:07 Hypercal cemia 41543645 Active 2024 FELISHA DESIR null, [facility] 5 10:07:49 Vitamin D deficien cy 16644928 Active 2024 Lyn Marmolejo MD [address] [place] [address], [address], [facility] 5 12:54:55 Hyperpar athyroid ism 33687427 Active 2024 Lyn Marmolejo MD [address] [place] [address], [address], [facility] 5 12:54:56 Dysuria 80921585 [facility] 14:08:08 Problem Notes None recorded. Procedures Surgical History Date Name Laterality Status Provider Name and Address Organization Details Recorded Time 2024 Most Recent Mammogram completed FELISHA [facility] 5 16:09:39 2024 esophagogastroduodenoscopy completed YANELIS WELSH [facility] 5 12:23:16 2024 colonoscopy completed [facility] 5 10:20:11 2023 esophagogastroduodenoscopy completed KIARA DUCKWORTH [facility] 4 12:40:14 2023 colonoscopy completed Lyn Marmolejo MD [address] [place] [address], [address] [place] [address], L[facility] 5 10:19:30 cholecystectomy completed [facility] 3 14:48:40 replacement of mitral valve complete d [facility] 3 14:49:22 section completed [facility] 3 15:14:43 Imaging Results None recorded. Procedure Notes None recorded. Medical Equipment None Reported. Allergies Allergen ID Allergen Name Allergen Category Reaction Reaction Severity Criticality Documentation Date Start Date Code Code System Note Provider Name and Address Organization Details Recorded Time 1376 morphine medicatio n Not available Not available Not available 02/07/[address] [facility] 3 10:45:47 1377 diltiazem Not available Not available Not available Not available 02/07/2023 3443 RxNorm Dotty Celis [facility] 3 10:45:54 4552 Bactrim medicatio n other severe high 04/17/2023 84381 9 RxNorm do not give d/t couma din Lola Vidal [facility], [facility] 4 13:34:33 55076 diltiazem hydrochlo ride medicatio n Not available Not available Not available 05/26/2023 1 RxNorm Comme nt: Recor ded 12/29 7:56A M by Yanelis Kitchen on, LITHARGE SUPERVISOR, 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 ; Promo talib; Signi fican ce: *; Reaso n: Drug aller gy; ; [facility] 3 12:26:44 35015 morphine sulfate medicatio n Not available Not available Not available 05/26/2023 15690 RxNorm Comme nt: Recor ded 12/29 7:56A M by Yanelis Kitchen on, LITHARGE SUPERVISOR, 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 ; Promo talib; Signi fican ce: *; Reaso n: Drug aller gy; ; FELISHA DESIR [facility] 3 12:26:48 Medications Name Sig [...] Further refills need to come from cardiolo . One month supply given only to make [...] THSC Levothyro xine Sodium daily 06/08 completed 72686; Recorded 01/09/20 6:06PM by Shirley Quevedo (Authori pushpad through Travis Sousa MD), Refill Request; Refill [...] Updated DateTime 5 154.94 cm 28.7 kg/m2 82195.0 4 g 97.7 [degF] 65 /min 94 % 144/86 mm[Hg] Dotty Celis [facility] 5 14:07:05 Social History Question Answer Notes LastModified by Organizat ion Details LastModified Time Tobacco Smoking Status Former Smoker FELISHA hamilton [facility] 04/17/2023 14:48:01 What Was The Date Of Your Most Recent Tobacco Screening? 05/27/2025 [email or web address] Information not available 05/27/2025 Sex: Unknown Functional Status Question Answer Note LastModified by Organizat ion Details LastModified Time Do you use any illicit or recreational drugs? No [email or web address] Information not available 04/17/2023 Do you or have you ever used any other forms of tobacco or nicotine? No Information not available 06/29/2023 What is your level of alcohol consumption? None Information not available 04/17/2023 Mental Status None recorded. Family History Relationship Description Onset Age of this Age Resolved Age Notes LastModified by Organization Details LastModified Time Unspecified Relation Coronary atherosclero sis [email or web address] Not available 06/29 15:13:48 Medical History No medical history recorded. Gynecological History Statement/Question Response Most Recent Mammogram 09/15/2025 Obstetrics History GPAL:G 0 P 0 0 0 0 Immunizations Vaccine Type Date Status Note Provider Nam e and Address Organization Details Recorded Time Influenza, MDCK, quadrivalent, PF [address] [facility] 10/10/2024 08:38:58 COVID-19, mRNA, LNP-S, PF, 100 mcg/0.5mL dose or 50 mcg/0.25mL dose [address] [facility] 10/10/2024 08:38:58 COVID-19, mRNA, LNP-S, PF, 100 mcg/0.5mL dose or 50 mcg/0.25mL dose 1 completed FELISHA hamilton, [facility] 10/10/2024 08:38:58 COVID-19, mRNA, LNP-S, PF, 100 mcg/0.5mL dose or 50 mcg/0.25mL dose 2 completed FELISHA hamilton, [facility] 10/10/2024 08:38:58 Pneumococcal conjugate PCV20, polysaccharide VLG351 conjugate, adjuvant, PF 3 completed FELISHA hamilton, [facility] 10/10/2024 08:38:58 COVID-19, mRNA, LNP-S, bivalent, PF, 50 mcg/0.5 mL or 25mcg/0.25 mL dose 3 completed FELISHA hamilton, [facility] 10/10/2024 08:38:58 pneumococcal polysaccharide PPV23 3 completed FELISHA hamilton, [facility] 04/17/2023 12:02:00 Tdap 1 completed FELISHA hamilton, [facility] 10/10/2024 08:38:58 Influenza, split virus, trivalent, PF 3 completed FELISHA hamilton, [facility] 04/17/2023 12:02:00 influenza, split (incl. purified surface antigen) 0 completed FELISHA hamilton, [facility] 04/17/2023 12:02:00 Hep A, adult 1 completed FELISHA hamilton, [facility] 10/10/2024 08:38:58 Hep A, adult 9 completed FELISHA hamilton, [facility] 10/10/2024 08:38:58 Influenza, split virus, quadrivalent, PF 1 completed FELISHA DESIR null, [facility] 10/10/2024 08:38:58 Influenza, split virus, quadrivalent, PF 9 completed FELISHA DESIR null, [facility] 10/10/2024 08:38:58 Influenza, MDCK, trivalent, PF 4 completed FELISHA DESIR null, [facility] 10/10/2024 08:38:58 Influenza, MDCK, quadrivalent, preservative 3 completed FELISHA DESIR null, [facility] 10/10/2024 08:38:58 pneumococcal polysaccharide PPV23 8 completed Lola hamilton, [facility] 07/02/2024 08:41:52 Influenza, split virus, quadrivalent, PF 8 completed Lola Vidal null, [facility] 07/02/2024 08:41:52 zoster recombinant 3 completed Lola hamilton, [facility] 07/02/2024 14:52:40 COVID-19, mRNA, LNP-S, PF, 50 mcg/0.5 mL 4 completed FELISHA hamilton, [facility] 10/10/2024 08:38:58 Influenza, MDCK, trivalent, preservative 4 completed FELISHA hamilton, [facility] 10/10/2024 08:38:58 Past Encounters Encounter ID Performer Location Encounter Start Date Encounter Closed Date Diagnosis/Indication Diagnosis SNOMED-CT Code Diagnosis ICD10 Code Diagnosis IMO Codes Diagnosis Note [id number] Lyn Marmolejo MD [facility] ([facility]) [address] [place] [address] 5 06/24/2025 12:18:01 06/30/2025 13:41:59 Hyperparathyroidism 31816471 E21.3 28596 corrected and ionized calcium are normalgfr 52 and stable Vitamin D deficiency 347 82364 E55.9 85219 [id number] Lyn Marmolejo MD [facility] ([facility]) [address] [place] [address] 5 07/01/2025 10:24:23 07/02/2025 11:29:38 Atrial fibrillation 12309652 I48.91 warfarin therapy [id number] Lyn Marmolejo MD [facility] ([facility]) [address] [place] [address] 5 07/03/2025 08:14:55 07/13/2025 10:06:37 Benign essential hypertension 7294376 I10 Coronary atherosclerosis 342676211 I25.119 Atrial fibrillation 4943 6004 I48.91 warfarin therapyd/c naproxen d/t hx of bleeding Hyperlipidemia 75345118 E78.00 Hypothyroidism 35616344 E03.9 Hyperparathyroidism 6699 9008 E21.3 44877 [id number] Lyn Marmolejo MD [facility] ([facility]) [address] [place] [address] 5 07/06/2025 11:22:40 07/07/2025 09:33:46 History of mechanical prosthetic mitral valve replacement 656129722 Z95.2 [id number] Lyn Marmolejo MD [facility] ([facility]) [address] [place] [phone] 5 07/09/2025 13:42:58 07/10/2025 14:24:59 Atrial fibrillation 49768802 I48.91 warfarin therapyd/c naproxen d/t hx of bleeding [id number] Lyn Marmolejo MD [facility] ([facility]) [address] [place] [phone] 5 07/14/2025 13:52:08 07/15/2025 10:22:44 Dysuria 00433615 R30.0 90732 will call with ua results Health Concerns Section Related Observation LastModified by Organization Detai ls LastModified Time None Recorded Concern Status LastModified by Organization Details LastModified Time None Recorded Payers Encounter Date Sequence Insurance Name Policy Number Policy Hernandez Covered Member ID Hernandez Member ID Guarantor Name 07/14/2025 1 [place]ANT[place] - PPO) [id number] Odilia Ulloa [id number] Odilia Ulloa 07/14/2025 2 [place] Odilia Ulloa [id number] Odilia Ulloa Notes Date Note Type Note [...] noted in the HPI Lyn Marmolejo MD [address] [place] [address], [phone], [facility] 07/14/2025 14:37:48 OBGyn Episode No OBEpisode recorded.
--- OUTSIDE RECORDS SUMMARY | 2025-09-19 05:41 | XMS_ITS | Encounter Summary ---
Author Organization [facility] Address [address] [place] [address] Care Team Providers Care Mortgage Coordinator Name Role Phone Rico Muñiz MD, Sharan Jaime Primary Care Provider Encounter Details Date Type Department Care Team (Latest Contact Info) Description 08/31/2000 Outpatient Historical [facility] Sharan Gómez Jr., MD [address] [place] [address] Pure hypercholesterolem (Primary Dx); Dietary surveil/drug counselor Social History Tobacco Use Types Packs/Day Years Used Date Smoking Tobacco: Never Assessed Comments Unknown Sex and Gender Information Value Date Recorded Sex Assigned at Not on file 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
--- OUTSIDE RECORDS SUMMARY | 2025-09-19 05:41 | XMS_ITS | Encounter Summary ---
Author Organization [facility] Address [address] [place] [address] Care Team Providers Care Art Glass Setter Name Role Phone Rico Muñiz MD, Sharan Jaime Primary Care Provider Encounter Details Date Type Department Care Team (Late st Contact Info) Description 06/21/2000 Outpatient Historical [facility] Serge Arrington MD [address] [facility] [address] [place] [phone] Unspecified essential hypertension (Primary Dx); Mitral valve disorder; FPC (current) use of anticoagulants Social History Tobacco Use Types Packs/Day Years Used Date Smoking Tobacco: Never Assessed Comments Unknown Sex and Gender Information Value Date Recorded Sex Assigned at Not on file 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
--- OUTSIDE RECORDS SUMMARY | 2025-09-19 05:41 | XMS_ITS | Encounter Summary ---
Author Organization [facility] Address [address] [place] [address] Care Team Providers Care Supervisor Drying And Winding Name Role Phone Rico Muñiz MD, Sharan Jaime Primary Care Provider Encounter Details Date Type Department Care Team (Latest Contact Info) Description 03/03/2002 Outpatient Historical [facility] Sharan Gómez Jr., MD [address] [place] [address] HYPERTENSION NOS (Primary Dx); ENDOCARDITIS NOS; AFTERCARE LONGTERM ANTICOAG USE; FAMILY HX-DIABETES MELLITUS Social History Tobacco Use Types Packs/Day Years Used Date Smoking Tobacco: Never Assessed Comments Unknown Sex and Gender Information Value Date Recorded Sex Assigned at Not on file Legal Sex 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 Gender Identity Not on file Sexual Orientation Not on file documented as of this encounter Plan of Treatment Not on file documented as of this encounter Visit Diagnoses Diagnosis Unspecified essential hypertension- Primary Endocarditis, valve unspecified, unspecified cause 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
--- OUTSIDE RECORDS SUMMARY | 2025-09-19 05:41 | XMS_ITS | Encounter Summary ---
Author Organization [facility] Address [address] [place] [address] Care Team Providers Care Inside Solar Sales Consultant Name Role Phone Rico Muñiz MD, Sharan Jaime Primary Care Provider Encounter Details Date Type Department Care Team (Latest Contact Info) Description 02/03/2002 Outpatient Historical [facility] Sharan Gómez Jr., MD [address] [place] [address] HEART VALVE REPLAC NEC (Primary Dx); AFTERCARE ASSISTED ANTICOAG USE Social History Tobacco Use Types Packs/Day Years Used Date Smoking Tobacco: Never Assessed Comments Unknown Sex and Gender Information Value Date Recorded Sex Assigned at Not on file 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
--- OUTSIDE RECORDS SUMMARY | 2025-09-19 05:41 | XMS_ITS | Encounter Summary ---
Author Organization [facility] Address [address] [place] [address] Care Team Providers Care Wafer Polishing Worker Name Role Phone Rico Muñiz MD, Sharan Jaime Primary Care Provider Encounter Details Date Type Department Care Team (Latest Contact Info) Description 08/03/2000 Outpatient Historical [facility] Sharan Gómez Jr., MD [address] [place] [address] Pure hypercholesterolem (Primary Dx); Other and unspecified hyperlipidemia; Dietary surveil/certified travel counselor Social History Tobacco Use Types Packs/Day Years Used Date Smoking Tobacco: Never Assessed Comments Unknown Sex and Gender Information Value Date Recorded Sex Assigned at Not on file Legal Sex Female 5:42 AM OTA Gender Identity Not on file Sexual Orientation Not on file documented as of this encounter Plan of Treatment Not on file documented as of this encounter Visit Diagnoses Diagnosis Pure hypercholesterolem- Primary Pure hypercholesterolemia Other and unspecified hyperlipidemia Dietary surveil/certified travel counselor Dietary surveillance and counseling documented in this encounter Care Teams Wafer Polishing Worker Relationship Specialty Start Date End Date Sharan Gómez Jr., MD [address] [place] [address] PCP - General 08/10/05 documented as of this encounter
--- OUTSIDE RECORDS SUMMARY | 2025-09-19 05:41 | XMS_ITS | Continuity of Care Document ---
Author Organization DAI Haas [facility] Luis M, LArie, [facility] ([facility]) Address [address] [place] [address] Care Team Providers Care Coding Assistant Name Role Phone LYN MARMOLEJO Primary Care Provider [phone] Assessment Encounter Date Assessment Date Assessment LastModified by Organization Details LastModified Time 08/17/2025 08/17/2025 she has a rescheduled conformal pad former apt in a few weeks. [email or web address] Not available 08/17/2025 14:38:16 Plan of Treatment Reminders Order Date Submit Date Provider Last Modified By Organization Details Last Modified Time Details Appointments None recorded. Lab protein electroph oresis panel, serum or plasma 2024 [employer] [facility], [address] [place] [address], [facility] [address] [place], [address], 00:38:16 vitamin B12, serum 2024 025 [employer] [facility], [address] [place], [address], 00:38:18 mma (methylma lonic acid), serum 2024 025 [employer] [facility], [address] [place] [address] 248, [address] [place], [address], 00:38:15 CBC 2024 025 [facility], [address], [facility] 1, [place], [address], 15:57:00 unlisted lab - periphera l blood smear review 2024 [employer] [facility], [address] [place] [address], [address], [place], [address], 15:11:08 PT/INR 2024 [facility] ([facility]), [address] [place], [address], 15:57:14 PTH (parathyr oid hormone), intact + calcium, serum or plasma 2024 YELM [employer] [facility], [address] [place] [address], [address], [place], [address], 00:38:16 thyrotrop in, QN, serum or plasma 2024 [facility], [address] [facility], [facility] 1, [place], [address], 16:04:05 T4, free, serum 2024 YELM [employer] [facility], [address] [place] [address], [address], [place], [address], 00:38:17 Referral None recorded. Procedures None recorded. Surgeries None recorded. Imaging US, echocardi ogram, transthor acic, complete, w/ color flow 2024 [facility], [address] [place], [address], 09:16:34 Medication Orders lorazepam 0.5 mg tablet 2024 [facility], [address] [place] [address], [address], 14:21:51 Patient TargetsNo targets recorded. Patient Instructions Encounter Date Encounter Id Patient Instructions Last Modified By Organization Details Last Modified Time 08/17/2025 [id number] Folic Acid [email or web address] Not available 07/30 14:47:55 Reason for Referral None Reported. Results Created Date Observation Date Name Description Value Unit Range Abnormal Flag Note LastModifiedBy Organization Detail LastModifiedTime 07/23/2007/23/2025 PT/IN R Protime 47.0 Not Available [facility] ([facility]) [address] [place], [address], 07/23/2025 11:36:06 07/23/2007/23/2025 PT/IN R INR 3.9 Not Available [facility] ([facility]) [address] [place], [address], 07/23/2025 11:36:06 07/30/2007/30/2025 PT/IN R Protime 30.2 Not Available [facility] ([facility]) [address] [place], [address], 07/30/2025 11:33:15 07/30/2007/30/2025 PT/IN R INR 2.5 Not Available [facility] ([facility]) [address] [place], [address], 07/30/2025 11:33:15 08/07/2008/07/2025 PT/IN R Protime 26.3 Not Available [facility] ([facility]) [address] [place], [address], 08/07/2025 11:40:14 08/07/2008/07/2025 PT/IN R INR 2.2 Not Available [facility] ([facility]) [address] [place], [address], 08/07/2025 11:40:14 08/17/20 25 08/17/2025 CBC WBC 6.3 x10 4.0-10 .5 Not Available [facility] [address] [facility] 1, [place], [address], 08/17/2025 15:57:00 08/17/20 25 08/17/2025 CBC RBC 3.45 x10 3.50-5 .50 low Not Available [facility] [address] [facility] 1, [place], [address], 08/17/2025 15:57:00 08/17/20 25 08/17/2025 CBC HGB 12.4 g/dL 12.0-1 6.0 Not Available [facility] [address] [facility] 1, [place], [address], 08/17/2025 15:57:00 08/17/20 25 08/17/2025 CBC HCT 37.7 % 37.0-4 7.0 Not Available [facility] [address] [facility] 1, [place], [address], 08/17/2025 15:57:00 08/17/20 25 08/17/2025 CBC MCV 109.2 fL 80.0-9 9.9 high Not Available [facility] [address] [facility] 1, [place], [address], 08/17/2025 15:57:00 08/17/20 25 08/17/2025 CBC MCH 36.0 pg 27.0-3 2.0 high Not Available [facility] [address] [facility] 1, [place], [address], 08/17/2025 15:57:00 08/17/20 25 08/17/2025 CBC MCHC 32.9 g/dL 32.0-3 6.0 Not Available [facility] [address] [facility], [place], [address], 08/17/2025 15:57:00 08/17/20 25 08/17/2025 CBC RDW 12.7 % 11.5-1 4.5 Not Available [facility] [address] [facility], [place], [address], 08/17/2025 15:57:00 08/17/20 25 08/17/2025 CBC plt 239.0 x10 140.0- 451.0 Not Available [facility] [address] [facility], [place], [address], 08/17/2025 15:57:00 08/17/20 25 08/17/2025 CBC lymphocytes % 27.7 % 20.0-5 0.0 Not Available [facility] [address] [facility] 1, [place], [address], 08/17/2025 15:57:00 08/17/20 25 08/17/2025 CBC granulcytes % 56.9 % 30.0-7 0.0 Not Available [facility] [address] [facility] 1, [place], [address], 08/17/2025 15:57:00 08/17/20 25 08/17/2025 CBC monocytes % 10.1 % 2.0-16 .0 Not Available [facility] [address] [facility], [place], [address], 08/17/2025 15:57:00 08/17/2008/17/2025 CBC granulcytes# 3.6 x10 Not Cyndi ilable [facility] [address] [address], [place], [address], 08/17/2025 15:57:00 10/20/08/17/2025 CBC lymphocytes # 1.8 x10 Not Available [facility] [address] [facility], [place], [address], 08/17/2025 15:57:00 08/17/20 25 08/17/2025 CBC monocytes # 0.6 x10 Not Avai lable [facility] [address] [facility], [place], [address], 08/17/2025 15:57:00 08/17/20 25 08/17/2025 TSH TSH 0.81 uIU/m L 0.49-3 .82 Not Available [facility] [address] [facility], [place], [address], 08/17/2025 16:04:05 08/17/20 25 08/18/2025 PERIP HERAL BLOOD SMEAR REVIE W peripheral blood smear review Macro cytos is 1 + Ovalo cytes 1 + Polyc hroma mikhail 1 + Revie w of the perip heral smear revea ls adequ ate numbe rs of plate lets. Revie w of perip heral smear confi jace autom ated resul ts. Not Available [facility] [address] [place], [address], 08/18/2025 15:11:08 08/17/20 25 08/19/2025 METHY LMALO [...] : 63-24 1 nmol/ L Not Available [employer] [facility] [address] [place], [address], 08/20/2025 00:38:15 08/17/2008/19/2025 METHY LMALO SE ACID [...] for clini luisito purpo ses. Not Available [employer] [facility] [address] [place], [address], 08/20/2025 00:38:15 08/17/2008/19/2025 PROTE IN, TOTAL AND PROTE IN ELECT ROPHO RESIS W/ REFL [place] protein, total 7.1 g/dL 6.1-8. 1 normal Not Available [address], [address], 08/20/2025 00:38:16 08/17/20 25 08/19/2025 PROTE IN, TOTAL AND PROTE IN ELECT ROPHO RESIS W/ REFL [place] albumin 4.5 g/dL 3.8-4. 8 normal Not Available [address], [address], 08/20/2025 00:38:16 08/17/20 25 08/19/2025 PROTE IN, TOTAL AND PROTE IN ELECT ROPHO RESIS W/ REFL [place] alpha 1 globulin 0.3 g/dL 0.2-0. 3 normal Not Available [address], [address], 08/20/2025 00:38:16 08/17/20 25 08/19/2025 PROTE IN, TOTAL AND PROTE IN ELECT ROPHO RESIS W/ REFL [place] alpha 2 globulin 0.5 g/dL 0.5-0. 9 normal Not Available [address], [address], 08/20/2025 00:38:16 08/17/20 25 08/19/2025 PROTE IN, TOTAL AND PROTE IN ELECT ROPHO RESIS W/ REFL [place] beta 1 globulin 0.4 g/dL 0.4-0. 6 normal Not Available [address], [address], 08/20/2025 00:38:16 08/17/20 25 08/19/2025 PROTE IN, TOTAL AND PROTE IN ELECT ROPHO RESIS W/ REFL [place] beta 2 globulin 0.3 g/dL 0.2-0. 5 normal Not Available [facility] [address], [address], 08/20/2025 00:38:16 08/17/20 25 08/19/2025 PROTE IN, TOTAL AND PROTE IN ELECT ROPHO RESIS W/ REFL [place] gamma globulin 1.1 g/dL 0.8-1. 7 normal Not Available [address] [place], [address], 08/20/2025 00:38:16 08/17/20 25 08/19/2025 PROTE IN, TOTAL AND PROTE IN ELECT ROPHO RESIS W/ REFL [place] interpretati on No restr icted band (M-sp mera) seen. Not Available [address] [place], [address], 08/20/2025 00:38:16 08/17/2008/19/2025 PTH, INTAC T (ICMA ) AND IONIZ ED CALCI UM parathyroid hormone, intact 173 pg/mL 16-77 high Inter preti ve Guide Intac t PTH Calci um ----- ----- ----- --- ----- ----- ----- -- Joie l Parat hyroi d Ojie l Joie l Hypop juan j yroid ism Low or Low Joie l Low Hyper parat hyroi dism Prima ry Joie l or High High Secon stewart High Joie l or Low Terti nhung High High Non-P juan j yroid Hyper calce micah Low or Low Joie l High Not Available [address] [address] [place], [address], 08/20/2025 00:38:16 08/17/2008/19/2025 PTH, INTAC T (ICMA ) AND IONIZ ED CALCI UM calcium 10.2 mg/dL 8.6-10 .4 normal Not Available [address] [place], [address], 08/20/2025 00:38:16 08/17/20 25 08/19/2025 PTH, INTAC T (ICMA ) AND IONIZ ED CALCI UM calcium, ionized 5.6 mg/dL 4.7-5. 5 high Not Available [address] [address] [place], [address], 08/20/2025 00:38:16 08/17/20 25 08/19/2025 T4, FREE T4, free 1.9 NG/dL 0.8-1. 8 high Not Available [address], [address], 08/20/2025 00:38:17 08/17/20 25 08/19/2025 VITAM IN B12 vitamin B12 >2000 pg/mL 200-11 00 high Not Available [facility] [address], [address], 08/20/2025 00:38:18 08/17/20 25 08/17/2025 PT/IN R Protime 21.5 Not Available [facility] ([facility]) [address] [place], [address], 08/17/2025 14:33:48 08/17/20 25 08/17/2025 PT/IN R INR 1.8 Not Available [facility] ([facility]) [address] [place], [address], 08/17/2025 14:33:48 08/05/20 25 08/04/2025 XR, cervi luisito spine , 2 or 3 view No observ ation record ed. [facility] [place], [facility] [address] [place], [address], 08/07/2025 13:25:55 08/05/20 25 08/04/2025 XR, shoul vito, 2 or more view No observ ation record ed. [facility] [place], [facility] [address] [place], [address], 08/07/2025 13:25:55 1109/08/2025 US, echoc ardio gram, trans thora cic, compl ete, w/ color flow No observ ation record ed. [facility] [address] [place], [address], 09/11/2025 09:19:21 09/15/2009/15/2025 MAMMO , scree ilya, digit al, bilat eral No observ ation record ed. jordy [facility] [address] [place], [address], 09/16/2025 16:09:54 Result Notes None recorded. Problems Name Problem SNOMED Code Status Onset Date Resolution Date Notes Provider Name and Address Organization Details Recorded Time Depressi ve disorder 92565531 Completed 202010/14/2021 Depressi on - Status is Inactive ; 10/14/20 11:08AM by Maryellen Marmolejo PA-C, Annotati on/Adden dum; Promoted ; acuity set as *; FELISHA hamilton, [facility] 5 07:56:57 Herpes zoster 2921375 Completed 202201/02/2025 SHINGLES FELISHA hamilton, [facility] 5 07:56:03 Dysthymi a 57160422 Active 2022 DEPRESSI ON WITH ANXIETY FELISHA hamilton, [facility] 5 07:55:28 Benign essentia l hyperten jovanni 6951829 Active [address] [facility] 5 07:55:28 Gastroes ophageal reflux disease 673784699 Active [address] [facility] 5 07:55:28 Fracture of upper end of humerus 574858909 Completed 202201/02/2025 CLOSED FRACTURE OF PROXIMAL END OF RIGHT HUMERUS, SEQUELA FELISHA DESIR null, [facility] 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 5 07:56:22 Atrial fibrilla tion 73313983 Active 2022 FELISHA DESIR null, [facility] 3 14:45:05 Coronary atherosc lerosis 972438054 Active 2022 bare metal stents to circ and LAD 2011 FELISHA DESIR null, [facility] 3 14:46:30 Iron deficien cy anemia 57550844 Active 2022 FELISHA hamilton, [facility] 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 3 14:45:59 Anxiety 02785212 Active 2022 FELISHA hamilton, [facility] 3 14:46:54 Viral hepatiti s C 17232310 Active 2022 FELISHA DESIR null, [facility] 5 07:55:28 Moderate recurren t major depressi on 24725986 Active 2023 FELISHA hamilton, [facility] 5 07:55:28 Need for personal care assistan ce 13858222389 908523 Active 2023 FELISHA hamilton, [facility] 5 07:55:28 Frail elderly 543795742 Active 2023 FELISHA DESIR null, [facility] 5 07:55:28 Seasonal allergic rhinitis 273791167 Active 2023 FELISHA DESIR null, [facility] 5 07:55:28 Chronic pain 94874337 Active 2023 FELISHA DESIR null, [facility] 5 07:55:28 Dementia 20910207 Active 2023 FELISHA DESIR null, [facility] 5 07:55:28 Constipa tion 54526815 Active 2023 FELISHAJAMIE DESIR null, [facility] 5 07:55:44 Hyperlip idemia 80531885 Active 2024 FELISHA DESIR null, [facility] 5 07:59:38 Occult blood detected in feces 95187784 Active 2024 FELISHA DESIR null, [facility] 5 09:13:35 Mean corpuscu lar volume above referenc e range 668711810 Active 2024 FELISHA DESIR null, [facility] 5 09:14:07 Hypercal cemia 14965451 Active 2024 FELISHA DESIR null, [facility] 5 10:07:49 Vitamin D deficien cy 38434232 Active 2024 Lyn Marmolejo MD [address] [place] [address], [address], [facility] 5 12:54:55 Hyperpar athyroid ism 28075954 Active 2024 Lyn Marmolejo MD [address] [place], [address], [facility] 5 12:54:56 Dysuria 76551696 Active 2024 Dotty Celis null, [facility] 5 14:08:08 Problem Notes None recorded. Procedures Surgical History Date Name Laterality Status Provider Name and Address Organization Details Recorded Time 2024 Most Recent Mammogram completed FELISHA [facility] 5 16:09:39 2024 esophagogastroduodenoscopy completed YANELIS ANITHA [facility] 5 12:23:16 2024 colonoscopy completed [facility] 5 10:20:11 2023 esophagogastroduodenoscopy completed KIARA DUCKWORTH [facility] 4 12:40:14 2023 colonoscopy completed Lyn Marmolejo MD [address] [place], [address], [facility] 5 10:19:30 cholecystectomy completed FELISHA [facility] 3 14:48:40 replacement of mitral valve complete d FELISHA [facility] 3 14:49:22 section completed [facility] 3 15:14:43 Imaging Results None recorded. Procedure Notes None recorded. Medical Equipment None Reported. Allergies Allergen ID Allergen Name Allergen Category Reaction Reaction Severity Criticality Documentation Date Start Date Code Code System Note Provider Name and Address Organization Details Recorded Time 1376 morphine medicatio n Not available Not available Not available 02/07/2023 7052 RxNorm Dotty Celis [facility] 3 10:45:47 1377 diltiazem Not available Not available Not available Not available 02/07/2023 3443 RxNorm Dottylizzie Celis [facility] 3 10:45:54 4552 Bactrim medicatio n other severe high 04/17/2023 79535 9 RxNorm do not give d/t couma din Lola Vidal [facility] 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 3 12:26:44 36992 morphine sulfate medicatio n Not available Not available Not available 05/26/2023 48484 RxNorm Comme nt: Recor ded 12/29 7:56A M by Yanelis Kitchen on, ROLL PRESS OPERATOR, 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 ; Promo talib; Signi fican ce: *; Reaso n: Drug aller gy; ; FELISHA DSEIR [facility] 3 12:26:48 Medications Name Sig Start [...] 2 mg tablet 1 tablet Sunday and 08/102025 completed MWF Not Available Not Available Not [...] 23 3:42PM by Felisha Desir LPN (Authori pushpad [...] 06/08 completed 436; Recorded 01/02/20 3:43PM by eFlisha Desir LPN (Authori pushpad through Lyn Marmolejo MD), Refill Request; Refill Quantity : 30; Tablet; Not Available Not Available Not Available fiber 06/08 completed Not Available Not Available Not Available [facility] Levothyro xine Sodium daily 06/08 completed [address]; Recorded 01/09/20 6:06PM by Shirley Quevedo (Authori zed through Travis Sousa MD), Refill Request; Refill Quantity : 30; Tablet; Not Available Not Available Not Available galantami ne 04/17 completed Not Available Not Available Not Available Potassium Chloride ER twice daily 06/08 completed 436; Recorded 03/13/20 3:22PM by Felisha Desir LPN (Authori pushpad [...] Details Last Updated DateTime 5 154.94 cm 28.9 kg/m2 57890.6 3 g 97.6 [degF] 76 /min 95 % 138/84 mm[Hg] Dotty Sharmaoch [facility] 5 13:43:55 Social History Question Answer Notes LastModified by Organizat [email or web address] Details LastModified Time Tobacco Smoking Status Former Smoker FELISHA hamilton [facility] 04/17/2023 14:48:01 What Was The Date Of Your Most Recent Tobacco Screening? 05/27/2025 [email or web address] Information not available 05/27/2025 Sex: Unknown Functional Status Question Answer Note LastModified by Organizat [email or web address] Details LastModified Time Do you use any illicit or recreational drugs? No [email or web address] Information not available 04/17/2023 Do you or have you ever used any other forms of tobacco or nicotine? No Information not available 06/29/2023 What is your level of alcohol consumption? None [email or web address] Information not available 04/17/2023 Mental Status None recorded. Family History Relationship Description Onset Age of this Age Resolved Age Notes LastModified by Organization Details LastModified Time Unspecified Relation Coronary atherosclero sis [email or web address] Not available 06/29 15:13:48 Medical History No medical history recorded. Gynecological History Statement/Question Response Most Recent Mammogram 09/15/2025 Obstetrics History GPAL:G 0 P 0 0 0 0 Immunizations Vaccine Type Date Status Note Provider Nam e and Address Organization Details Recorded Time Influenza, MDCK, quadrivalent, PF [address] [facility] 10/10/2024 08:38:58 COVID-19, mRNA, LNP-S, PF, 100 mcg/0.5mL dose or 50 mcg/0.25mL dose [address] [facility] 10/10/2024 08:38:58 COVID-19, mRNA, LNP-S, PF, 100 mcg/0.5mL dose or 50 mcg/0.25mL dose 1 [facility] 10/10/2024 08:38:58 COVID-19, mRNA, LNP-S, PF, 100 mcg/0.5mL dose or 50 mcg/0.25mL dose 2 completed FELISHA hamilton, [facility] 10/10/2024 08:38:58 Pneumococcal conjugate PCV20, polysaccharide DBA224 conjugate, adjuvant, PF 3 [facility] 10/10/2024 08:38:58 COVID-19, mRNA, LNP-S, bivalent, PF, 50 mcg/0.5 mL or 25mcg/0.25 mL dose 3 [facility] 10/10/2024 08:38:58 pneumococcal polysaccharide PPV23 3 [facility] 04/17/2023 12:02:00 Tdap 1 completed FELISHA hamilton, [facility] 10/10/2024 08:38:58 Influenza, split virus, trivalent, PF 3 completed FELISHA hamilton, [facility] 04/17/2023 12:02:00 influenza, split (incl. purified surface antigen) 0 [facility] 04/17/2023 12:02:00 Hep A, adult 1 [facility] 10/10/2024 08:38:58 Hep A, adult 9 completed FELISHA hamilton, [facility] 10/10/2024 08:38:58 Influenza, split virus, quadrivalent, PF 1 completed FELISHA DESIR null, [facility] 10/10/2024 08:38:58 Influenza, split virus, quadrivalent, PF 9 completed FELISHA DESIR null, [facility] 10/10/2024 08:38:58 Influenza, MDCK, trivalent, PF 4 completed FELISHA hamilton, [facility] 10/10/2024 08:38:58 Influenza, MDCK, quadrivalent, preservative 3 completed FELISHA hamilton, [facility] 10/10/2024 08:38:58 pneumococcal polysaccharide PPV23 8 completed Lola hamilton, [facility] 07/02/2024 08:41:52 Influenza, split virus, quadrivalent, PF 8 completed Lola hamilton, [facility] 07/02/2024 08:41:52 zoster recombinant 3 completed Lola hamilton, [facility] 07/02/2024 14:52:40 COVID-19, mRNA, LNP-S, PF, 50 mcg/0.5 mL 4 completed FELISHA hamilton, [facility] 10/10/2024 08:38:58 Influenza, MDCK, trivalent, preservative 4 completed FELISHA hamilton, [facility] 10/10/2024 08:38:58 Past Encounters Encounter ID Performer Location Encounter Start Date Encounter Closed Date Diagnosis/Indication Diagnosis SNOMED-CT Code Diagnosis ICD10 Code Diagnosis IMO Codes Diagnosis Note [id number] Lyn Marmolejo MD [facility] ([facility]) [address] [place], [place] [address] 07/23/2025 11:35:38 07/24/2025 12:08:17 Atrial fibrillation 88785286 I48.91 warfarin therapyd/c naproxen d/t hx of bleeding [id number] Lyn Marmolejo MD [facility] ([facility]) [address] [place], [place] [address] 07/30/2025 11:32:37 07/31/2025 09:44:15 History of mechanical prosthetic mitral valve replacement [id number] Z95.2 [id number] Lyn Marmolejo MD [facility]) [address] [place] [address] 5 08/04/2025 10:06:02 08/04/2025 15:14:44 Right cervical root neuropathy 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 shoulder region 5951597814 M25.511 [id number] Lyn Marmolejo MD [facility] ([facility]) [address] [place] [address] 5 08/07/2025 11:39:45 08/10/2025 10:28:08 Atrial fibrillation [id number] I48.91 warfarin therapyd/c naproxen d/t hx of bleeding [id number] Lyn Marmolejo MD [facility] ([facility]) [address] [place] [address] 5 08/17/2025 13:17:17 08/18/2025 09:51:22 History of mechanical prosthetic mitral valve replacement 481004333 Z95.2 Mean corpu scular volume above reference range 850921958 R71.8 [id number] Hypercalcemia 80251437 E 83.52 9955 Drug therapy finding 309 653262 Z79.899 [id number] Generalize d anxiety disorder 50908721 F41.1 [id number] Health Concerns Section Related Observation LastModified by Organization Detai ls LastModified Time None Recorded Concern Status LastModified by Organization Details LastModified Time None Recorded Payers Encounter Date Sequence Insurance Name Policy Number Policy Hernandez Covered Member ID Hernandez Member ID Guarantor Name 08/17/2025 1 [id number]ANT[place] - PPO) [id number] Odilia Ulloa [id number] Odilia Ulloa 08/17/2025 2 [place] Odilia Ulloa [id number] Odilia Ulloa Notes Date Note Type Note [...] she feels tired and low on fuel. Lyn Marmolejo MD [address] [place] [address], [id number], [facility], DemetraJosue 08/17/2025 14:48:51 OBGyn Episode No OBEpisode recorded.
--- OUTSIDE RECORDS SUMMARY | 2025-09-19 05:41 | XMS_ITS | Encounter Summary ---
Author Organization [facility] Address [address] [place] [address] Care Team Providers Care Rolls Baker Name Role Phone Rico Muñiz MD, Sharan Jaime Primary Care Provider Encounter Details Date Type Department Care Team (Late st Contact Info) Description 07/30/2000 Outpatient Historical [facility] Social History Tobacco Use Types Packs/Day Years Used Date Smoking Tobacco: Never Assessed Comments Unknown Sex and Gender Information Value Date Recorded Sex Assigned at Not on file Legal Sex Female 5:42 AM HEALTH PSYCHOLOGIST Gender Identity Not on file Sexual Orientation Not on file documented as of this encounter Plan of Treatment Not on file documented as of this encounter Visit Diagnoses Not on filedocumented in this encounter Care Teams Rolls Baker Relationship Specialty Start Date End Date Sharan Gómez Jr., MD [address] [place] [address] PCP - General 08/10/05 documented as of this encounter
--- OUTSIDE RECORDS SUMMARY | 2025-09-19 05:42 | XMS_ITS | Encounter Summary ---
Author Organization [facility] Address [address] [place] [address] Care Team Providers Care Ceramic Chemist Name Role Phone Rico Muñiz MD, Sharan Jaime Primary Care Provider Encounter Details Date Type Department Care Team (Late st Contact Info) Description 10/16/2020 Lab Requisition [facility] General Laboratory Services [place] [address] [place] [id number] Mtnv, External Provider [address] [place] [address] Social History Tobacco Use Types Packs/Day Years Used Date Smoking Tobacco: Never Assessed Comments Unknown Sex and Gender Information Value Date Recorded Sex Assigned at Not on file Legal Sex Female 5:42 AM DIGITAL 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 Gender Identity Not on file Sexual Orientation Not on file documented as of this encounter Plan of Treatment Not on file documented as of this encounter Procedures Procedure Name Priority Date/Time Associated Diagnosis Comments PROTIME-INR Routine 10/16/2020 10:20 AM DIGITAL 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 documented in this encounter Results * (ABNORMAL) PROTIME-INR (10/16/2020 10:20 AM DIGITAL 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) PROTIME 42.0(H) 12.0 - 14.4 Seconds 10/16/2020 12:05 PM DIGITAL 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 [facility] INR 4.7(H) 0.8 - 1.2 10/16/2020 12:05 PM DIGITAL 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 [facility] Blood 10/16/2020 10:2 0 AM DIGITAL 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 10/16/2020 11:47 AM DIGITAL 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 us External Provider Mtnv HEMATOLOGY ORDERABLES Fin al Result [facility] CLIA # [id number] [address] [place] [address] documented in this encounter Visit Diagnoses Not on filedocumented in this encounter Care Teams Ceramic Chemist Relationship Specialty Start Date End Date Sharan Gómez Jr., MD [address] [place] [address] PCP - General 08/10/05 documented as of this encounter
--- OUTSIDE RECORDS SUMMARY | 2025-09-19 05:42 | XMS_ITS | Clinical Summary ---
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
--- OUTSIDE RECORDS SUMMARY | 2025-09-19 05:42 | XMS_ITS | Encounter Summary ---
Author Organization [facility] Address [address] [facility] Attn: [place] [address] Care Team Providers Care Social Security Specialist Name Role Phone Rico Muñiz MD, Sharan Jaime Primary Care Provider Encounter Details Date Type Department Care Team (Late st Contact Info) Description 02/15/2001 Outpatient Historical Sharan Gómez Jr., MD [address] [place] [address] Social History Tobacco Use Types Packs/Day Years Used Date Smoking Tobacco: Never Assessed Comments Unknown Sex and Gender Information Value Date Recorded Sex Assigned at Not on file Legal Sex Female 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
--- OUTSIDE RECORDS SUMMARY | 2025-09-19 05:42 | XMS_ITS | Encounter Summary ---
Author Organization [facility] Address [address] [facility] Attn: [place] [address] Care Team Providers Care Hardware Installer Name Role Phone Rico Muñiz MD, Sharan Jaime Primary Care Provider Encounter Details Date Type Department Care Team (Late st Contact Info) Description 05/24/2000 Outpatient Historical Sharan Gómez Jr., MD [address] [place] [address] Social History Tobacco Use Types Packs/Day Years Used Date Smoking Tobacco: Never Assessed Comments Unknown Sex and Gender Information Value Date Recorded Sex Assigned at Not on file Legal Sex Female 5:42 AM INVESTIGATOR WELFARE Gender Identity Not on file Sexual Orientation Not on file documented as of this encounter Plan of Treatment Not on file documented as of this encounter Visit Diagnoses Not on filedocumented in this encounter Care Teams Hardware Installer Relationship Specialty Start Date End Date Sharan Gómez Jr., MD [address] [place] [address] PCP - General 08/10/05 documented as of this encounter
--- OUTSIDE RECORDS SUMMARY | 2025-09-19 05:42 | XMS_ITS | Encounter Summary ---
Author Organization [facility] Address [address] [place] [address] Care Team Providers Care Loader Operator/Ground Leader Name Role Phone Rico Muñiz MD, Sharan Jaime Primary Care Provider Encounter Details Date Type Department Care Team (Late st Contact Info) Description 2020 Lab Requisition [facility] Laboratory Services [address] [place] [phone] Tabatha Lynn, [facility] [address] [place] [address] Social History Tobacco Use Types Packs/Day Years Used Date Smoking Tobacco: Never Assessed Comments Unknown Sex and Gender Information Value Date Recorded Sex Assigned at Not on file Legal Sex Female 5:42 AM EMBROIDERY SPECIALIST Gender Identity Not on file Sexual Orientation Not on file documented as of this encounter Plan of Treatment Not on file documented as of this encounter Procedures Procedure Name Priority Date/Time Associated Diagnosis Comments PROTIME-INR Routine 2020 6:14 AM EMBROIDERY SPECIALIST documented in this encounter Results * (ABNORMAL) PROTIME-INR (2020 6:14 AM EMBROIDERY SPECIALIST) PROTIME 23.0(H) 11.9 - 15.5 Seconds 2020 7:28 PM EMBROIDERY SPECIALIST [facility] INR 2.0(H) 0.8 - 1.2 2020 7:28 PM EMBROIDERY SPECIALIST [facility] Blood Collection / Unknown 2020 6:14 AM EMBROIDERY SPECIALIST 2020 7:05 PM EMBROIDERY SPECIALIST Narrative [facility] - 2020 7:28 PM EMBROIDERY SPECIALIST Expected Values for INR: DVT/PE Goal INR [...] pharmacy Aspen Mitchell, Pharm D. Tabatha Neff SPINNING SUPERVISOR HEMATOLOGY ORDERABLES Final Result Performing Organization Address City/State/[facility] Co de Phone Number [facility] [address] [place] [address] documented in this encounter Visit Diagnoses Not on filedocumented in this encounter Care Teams Loader Operator/Ground Leader Relationship Specialty Start Date End Date Sharan Gómez Jr., MD [address] [place] [address] PCP - General 08/10/05 documented as of this encounter
--- OUTSIDE RECORDS SUMMARY | 2025-09-19 05:42 | XMS_ITS | Encounter Summary ---
Author Organization [facility] Address [address] [place] [address] Care Team Providers Care Car Sealer Name Role Phone Rico Muñiz MD, Sharan Jaime Primary Care Provider Encounter Details Date Type Department Care Team (Latest Contact Info) Description 02/15/2001 Outpatient Historical [facility] Sharan Gómez Jr., MD [address] [place] [address] Unspecified essential hypertension (Primary Dx); Heart valve replaced by other means Social History Tobacco Use Types Packs/Day Years Used Date Smoking Tobacco: Never Assessed Comments Unknown Sex and Gender Information Value Date Recorded Sex Assigned at Not on file Legal Sex Female 5:42 AM GLAZE SUPERVISOR Gender Identity Not on file Sexual Orientation Not on file documented as of this encounter Plan of Treatment Not on file documented as of this encounter Visit Diagnoses Diagnosis Unspecified essential hypertension- Primary Heart valve replaced by other means documented in this encounter Care Teams Car Sealer Relationship Specialty Start Date End Date Sharan Gómez Jr., MD [address] [place] [address] PCP - General 08/10/05 documented as of this encounter
--- OUTSIDE RECORDS SUMMARY | 2025-09-19 05:42 | XMS_ITS | Continuity of Care Document ---
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 5 Not Available [facility] [address], [address], 06/05/2025 12:56:12 06/05/2006/05/2025 CMP (FEMA LE) glucose 86.0 mg/dL 60.0-9 9.0 Not Available [facility] [address] [place] [facility], [place], [address], 06/05/2025 12:57:50 06/05/2006/05/2025 CMP (FEMA LE) BUN (blood urea nitrogen) 17.0 mg/dL 10.0-2 6.0 Not Available [facility] 805 [facility] [address] [place], [address], 06/05/2025 12:57:50 06/05/20 25 06/05/2025 CMP (FEMA LE) creatinine (serum) 0.9 mg/dL 0.4-1. 5 Not Available [facility] [address] [facility] [place] [facility], [place], [address], 06/05/2025 12:57:50 06/05/20 25 06/05/2025 CMP (FEMA LE) BUN/creatini ne ratio 18.89 ratio Not Available [facility] [address] [facility], [place], [address], 06/05/2025 12:57:50 06/05/20 25 06/05/2025 CMP (FEMA LE) eGFR calculated 64.9 Not Available [facility] [address] [facility] [facility] [place] [facility] 1, [place], [address], 06/05/2025 12:57:50 06/05/20 25 06/05/2025 CMP (FEMA LE) total protein 7.6 g/dL 6.0-8. 5 Not Available [facility] [address] [facility] [facility] [place] [facility], [place], [address], 06/05/2025 12:57:50 06/05/20 25 06/05/2025 CMP (FEMA LE) total bilirubin 1.1 mg/dL 0.2-1. 3 Not Available [facility] [address] [facility], [place], [address], 06/05/2025 12:57:50 06/05/20 25 06/05/2025 CMP (FEMA LE) albumin 4.5 g/dL 3.5-5. 5 Not Available [facility] [address] [facility], [place], [address], 06/05/2025 12:57:50 06/05/20 25 06/05/2025 CMP (FEMA LE) globulin 3.1 calc Not Available [facility] [address] [place] [facility], [place], [address], 06/05/2025 12:57:50 06/05/20 25 06/05/2025 CMP (FEMA LE) AST (SGOT) 28.0 U/L 0.0-46 .0 Not Available [facility] [address] [place] [facility], [place], [address], 06/05/2025 12:57:50 06/05/20 25 06/05/2025 CMP (FEMA LE) altv (SGPT) 14.0 U/L 13.0-6 9.0 normal Not Available [facility] [address] [place] [facility], [place], [address], 06/05/2025 12:57:50 06/05/20 25 06/05/2025 CMP (FEMA LE) A/G ratio 1.5 ratio Not Available [facility] [address] [place] [facility], [place], [address], 06/05/2025 12:57:50 06/05/20 25 06/05/2025 CMP (FEMA LE) ALP phos 87.0 U/L 30.0-1 40.0 normal Not Available [facility] [address] [place] [facility], [place], [address], 06/05/2025 12:57:50 06/05/20 25 06/05/2025 CMP (FEMA LE) calcium 10.6 mg/dL 8.4-10 .5 high Not Available [facility] 805 [facility] [place] [facility], [place], [address], 06/05/2025 12:57:50 06/05/20 25 06/05/2025 CMP (FEMA LE) sodium 140.0 mmol/ L 136.0- 145.0 Not Available [facility] [address] [facility] [facility] [place] [facility], [place], [address], 06/05/2025 12:57:50 06/05/20 25 06/05/2025 CMP (FEMA LE) potassium 4.8 mmol/ L 3.5-5. 1 Not Available [facility] [address] [place] [facility], [place], [address], 06/05/2025 12:57:50 06/05/20 25 06/05/2025 CMP (FEMA LE) chloride 106.0 mmol/ L 98.0-1 10.0 normal Not Available [facility] [address] [place] [facility], [place], [address], 06/05/2025 12:57:50 06/05/20 25 06/05/2025 CMP (FEMA LE) C02 27.0 mmol/ L 22.0-3 1.0 Not Available [facility] [address] [place] [facility], [place], [address], 06/05/2025 12:57:50 06/05/20 25 06/05/2025 CMP (FEMA LE) anion gap 7.0 calc Not Available [facility] [address] [facility] 1, [place], [address], 06/05/2025 12:57:50 06/05/20 25 06/05/2025 CMP (FEMA LE) osmolality 290.0 calc Not Available [facility] [address] [place] [facility], [place], [address], 06/05/2025 12:57:50 06/05/20 25 06/05/2025 LIPID PROFI LE (FEMA LE) cholesterol 227.0 mg/dL 0.0-20 0.0 high Not Available [facility] [address] [place] [facility], [place], [address], 06/05/2025 12:57:53 06/05/20 25 06/05/2025 LIPID PROFI LE (FEMA LE) trig 134.0 mg/dL 0.0-15 0.0 Not Available [facility] 805 [facility] 1, [place], [address], 06/05/2025 12:57:53 06/05/20 25 06/05/2025 LIPID PROFI LE (FEMA LE) HDL - direct 51.0 mg/dL >40.0 Not Available [facility] 805 [facility] 1, [place], [address], 06/05/2025 12:57:53 06/05/20 25 06/05/2025 LIPID PROFI LE (FEMA LE) VLDL - direct 26.8 mg/dL Not Available [facility] 805 [facility] 1, [place], [address], 06/05/2025 12:57:53 06/05/20 25 06/05/2025 LIPID PROFI LE (FEMA LE) LDL - direct 149.2 mg/dL 0.0-13 0.0 high Not Available [facility] 805 [facility] 1, [place], [address], 06/05/2025 12:57:53 06/05/20 25 06/05/2025 TSH TSH 0.83 uIU/m L 0.49-3 .82 Not Available [facility] 805 [facility] 1, [place], [address], 06/05/2025 14:15:28 06/05/2006/06/2025 HEPAT ITIS B SURFA CE ANTIB RASHARD QL hepatitis B surface antibody ql NON-RE ACTIVE non-re active normal Not Available [facility] [address], [place], [address], 06/06/2025 09:58:04 06/11/2006/11/2025 CMP (FEMA LE) glucose 88.0 mg/dL 60.0-9 9.0 Not Available [facility] [address] [facility] [place] [facility], [place], [address], 06/11/2025 13:16:16 06/11/20 25 06/11/2025 CMP (FEMA LE) BUN (blood urea nitrogen) 25.0 mg/dL 10.0-2 6.0 Not Available [facility] 805 [facility], [place], [address], 06/11/2025 13:16:16 06/11/20 25 06/11/2025 CMP (FEMA LE) creatinine (serum) 1.1 mg/dL 0.4-1. 5 Not Available [facility] 805 [facility], [place], [address], 06/11/2025 13:16:16 06/11/20 25 06/11/2025 CMP (FEMA LE) BUN/creatini ne ratio 22.73 ratio Not Available [facility] 805 [facility], [place], [address], 06/11/2025 13:16:16 06/11/20 25 06/11/2025 CMP (FEMA LE) eGFR calculated 51.5 Not Available [facility] 805 [facility], [place], [address], 06/11/2025 13:16:16 06/11/20 25 06/11/2025 CMP (FEMA LE) total protein 7.7 g/dL 6.0-8. 5 Not Available [facility] 805 [facility] [place] [facility], [place], [address], 06/11/2025 13:16:16 06/11/20 25 06/11/2025 CMP (FEMA LE) total bilirubin 0.9 mg/dL 0.2-1. 3 Not Available [facility] [address] [facility] [place] [facility], [place], [address], 06/11/2025 13:16:16 06/11/20 25 06/11/2025 CMP (FEMA LE) albumin 4.6 g/dL 3.5-5. 5 Not Available [facility] [address] [place] [facility], [place], [address], 06/11/2025 13:16:16 06/11/20 25 06/11/2025 CMP (FEMA LE) globulin 3.[address] [facility] [address] [facility] 1, [place], [address], 06/11/2025 13:16:16 06/11/20 25 06/11/2025 CMP (FEMA LE) AST (SGOT) 32.0 U/L 0.0-46 .0 Not Available [facility] [address] [place] [facility], [place], [address], 06/11/2025 13:16:16 06/11/20 25 06/11/2025 CMP (FEMA LE) altv (SGPT) 15.0 U/L 13.0-6 9.0 normal Not Available [facility] [address] [place] [facility], [place], [address], 06/11/2025 13:16:16 06/11/2006/11/2025 CMP (FEMA LE) A/G ratio 1.5 ratio Not Available [facility] [address] [place] [facility], [place], [address], 06/11/2025 13:16:16 06/11/20 25 06/11/2025 CMP (FEMA LE) ALP phos 81.0 U/L 30.0-1 40.0 normal Not Available [facility] [address] [place] [place] [address], [place], [address], 06/11/2025 13:16:16 06/11/2006/11/2025 CMP (FEMA LE) calcium 10.4 mg/dL 8.4-10 .5 Not Available [facility] [address] [facility] [facility] [place] [facility] 1, [place], [address], 06/11/2025 13:16:16 06/11/2006/11/2025 CMP (FEMA LE) sodium 142.0 mmol/ L 136.0- 145.0 Not Available [facility] [address] [facility] [place] [facility] 1, [place], [address], 06/11/2025 13:16:16 06/11/2006/11/2025 CMP (FEMA LE) potassium 4.7 mmol/ L 3.5-5. 1 Not Available [facility] [address] [facility] 1, [place], [address], 06/11/2025 13:16:16 06/11/2006/11/2025 CMP (FEMA LE) chloride 106.0 mmol/ L 98.0-1 10.0 normal Not Available [facility] [address] [facility] [facility] [place] [facility] 1, [place], [address], 06/11/2025 13:16:16 06/11/2006/11/2025 CMP (FEMA LE) C02 27.0 mmol/ L 22.0-3 1.0 Not Available [facility] [address] [facility] 1, [place], [address], 06/11/2025 13:16:16 06/11/2006/11/2025 CMP (FEMA LE) anion gap 9.0 calc Not Available [facility] [address] [place] [facility] 1, [place], [address], 06/11/2025 13:16:16 06/11/2006/11/2025 CMP (FEMA LE) osmolality 296.7 calc Not Available [facility] [address] [facility] 1, [place], [address], 06/11/2025 13:16:16 06/11/2006/12/2025 PTH, INTAC T (ICMA [...] or Low Joie l High Not Available [facility] [place] [address] [place], [address], 06/12/2025 15:27:52 06/11/2006/12/2025 PTH, INTAC T (ICMA ) AND IONIZ ED CALCI UM calcium 10.1 mg/dL 8.6-10 .4 normal Not Available [facility] [place] [address] [place], [address], 06/12/2025 15:27:52 06/11/2006/12/2025 PTH, INTAC T (ICMA ) AND IONIZ ED CALCI UM calcium, ionized 5.5 mg/dL 4.7-5. 5 normal Not Available [facility] [place] [address] [place], [address], 06/12/2025 15:27:52 06/11/20 25 06/12/2025 VITAM IN [...] /MS is recom gagan d: order code 24830 (vargas ents >2yrs ). See Note 1 Note 1 For addit ional infor surya mclean refer to http: //[facility] emma Riosia gnomero ics.c om/fa q/FAQ 199 (This link is being provi ded for infor sarika stroud/ educa dylon l purpo ses only. ) Not Available [facility] [address] [place], [address], 06/12/2025 15:27:54 06/24/20 25 06/24/2025 PT/IN R Protime 40.[address] [facility] ([facility]) [address] [place] [address], [address], 06/24/2025 13:13:54 06/24/20 25 06/24/2025 PT/IN R INR 3.[address] [facility] ([facility]) [address] [place] [address], [address], 06/24/2025 13:13:54 08/05/20 25 08/04/2025 XR, cervi luisito spine , 2 or 3 view No observ ation record ed. [address], [address], 08/07/2025 13:25:55 08/05/20 25 08/04/2025 XR, shoul vito, 2 or more view No observ ation record ed. [address], [place], [address], 08/07/2025 13:25:55 09/09/2009/08/2025 US, echoc ardio gram, trans thora cic, compl ete, w/ color flow No observ ation record ed. [facility] [address] [place], [address], 09/11/2025 09:19:21 09/15/2009/15/2025 MAMMO , scree ilya, digit al, bilat eral No observ ation record ed. [email or web address] [place] [address] [address] [place], [address], 09/16/2025 16:09:54 Result Notes None recorded. Problems Name Problem SNOMED Code Status Onset Date Resolution Date Notes Provider Name and Address Organization Details Recorded Time Depressi ve disorder 87267400 Completed 202010/14/2021 Depressi on - Status is Inactive ; 10/14/20 11:08AM by Maryellen Marmolejo PA-C, Annotati on/Adden dum; Promoted ; acuity set as *; FELISHA hamilton [facility] 07:56:57 Herpes zoster 8146845 Completed 202201/02/2025 SHINGLES FELISHA hamilton [facility] 5 07:56:03 Dysthymi a 23418422 Active 2022 DEPRESSI ON WITH ANXIETY FELISHA hamilton [facility] 5 07:55:28 Benign essentia l hyperten jovanni 9304308 Active 2022 FELISHA hamilton [facility] 5 07:55:28 Gastroes ophageal reflux disease 947649770 Active 2022 FELISHA hamilton [facility] 5 07:55:28 Fracture of upper end of humerus 134452951 Completed 202201/02/2025 CLOSED FRACTURE OF PROXIMAL END OF RIGHT HUMERUS, SEQUELA FELISHA hamilton, [facility] 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 5 07:56:22 Atrial fibrilla tion 42800050 Active 2022 FELISHA hamilton, [facility] 3 14:45:05 Coronary atherosc lerosis 037353779 Active 2022 bare metal stents to circ and LAD 2011 FELISHA hamilton, [facility] 3 14:46:30 Iron deficien cy anemia 87606387 Active 2022 FELISHA hamilton, [facility] 5 07:55:28 Hypothyr oidism 78694118 Active 2022 FELISHA hamilton, [facility] 3 14:45:59 Anxiety 66195224 Active 2022 FELISHA hamilton, [facility] 3 14:46:54 Viral hepatiti s C 82589207 Active 2022 FELISHA hamilton, [facility] 5 07:55:28 Moderate recurren t major depressi on 28219226 Active 2023 FELISHA hamilton, [facility] 5 07:55:28 Need for personal care assistan ce [id number] 452647 Active 2023 FELISHA DESIR null, [facility] 5 07:55:28 Frail elderly 949837441 Active 2023 FELISHA DESIR null, [facility] 5 07:55:28 Seasonal allergic rhinitis 539804585 Active 2023 FELISHA DESIR null, [facility] 5 07:55:28 Chronic pain 47607912 Active 2023 FELISHA DESIR null, [facility] 5 07:55:28 Dementia 51384650 Active 2023 FELISHA DESIR null, [facility] 5 07:55:28 Constipa tion 77434150 Active 2023 FELISHA DESIR null, [facility] 5 07:55:44 Hyperlip idemia 41488781 Active 2024 FELISHA DESIR null, [facility] 5 07:59:38 Occult blood detected in feces 37677853 Active 2024 FELISHA DESIR null, [facility] 5 09:13:35 Mean corpuscu lar volume above referenc e range 381959943 Active 2024 FELISHA DESIR null, [facility] 5 09:14:07 Hypercal cemia 32144969 Active 2024 FELISHA DESIR null, [facility] 5 10:07:49 Vitamin D deficien cy 21084908 Active 2024 Lyn Marmolejo MD [address] [place] [address], [address], [facility] 5 12:54:55 Hyperpar athyroid ism 59161752 Active 2024 Lyn Marmolejo MD [address] [place], [address], [facility] 5 12:54:56 Dysuria 60204829 Active 2024 Dotty Celis null, [facility] 5 14:08:08 Problem Notes None recorded. Procedures Surgical History Date Name Laterality Status Provider Name and Address Organization Details Recorded Time 2024 Most Recent Mammogram completed FELISHA DESIR [facility] 5 16:09:39 2024 esophagogastroduodenoscopy completed YANELIS DESIR [facility] 5 12:23:16 2024 colonoscopy completed FELISHA [facility] 5 10:20:11 2023 esophagogastroduodenoscopy completed KIARA DUCKWORTH [facility] 4 12:40:14 2023 colonoscopy completed Lyn Marmolejo MD [address] [place], [address], [facility] 5 10:19:30 cholecystectomy completed FELISHA DESIR [facility] 3 14:48:40 replacement of mitral valve complete d FELISHA [facility] L[facility] 3 14:49:22 section completed FELISHA DESIR [facility] 3 15:14:43 Imaging Results None recorded. Procedure Notes None recorded. Medical Equipment None Reported. Allergies Allergen ID Allergen Name Allergen Category Reaction Reaction Severity Criticality Documentation Date Start Date Code Code System Note Provider Name and Address Organization Details Recorded Time 1376 morphine medicatio n Not available Not available Not available 02/07/2023 7052 RxNorm Dotty Celis [facility] 3 10:45:47 1377 diltiazem Not available Not available Not available Not available 02/07/2023 3443 RxNorm Dottylizzie Celis [facility] 3 10:45:54 4552 Bactrim medicatio n other severe high 04/17/2023 46760 9 RxNorm do not give d/t couma din Lola Marcy [facility] 4 13:34:33 84784 diltiazem hydrochlo ride medicatio n Not available Not available Not available 05/26/2023 1 RxNorm Comme nt: Recor ded 12/29 7:56A M by Yanelis Allens on, ANALYTIC PROGRAMMER, 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 ; Promo talib; Signi fican ce: *; Reaso n: Drug aller gy; ; FELISHA DESRI [facility] 3 12:26:44 85476 morphine sulfate medicatio n Not available Not available Not available 05/26/2023 41222 RxNorm Comme nt: Recor ded 12/29 7:56A M by Yanelis Allens on, ANALYTIC PROGRAMMER, 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 ; Promo talib; Signi fican ce: *; Reaso n: Drug aller gy; ; FELISHA DESIR [facility] 3 12:26:48 Medications Name [...] 23 3:42PM by Felisha Desir LPN (Authori zegreg through Lyn Marmolejo MD), Refill Request; Refill [...] [facility]SC Levothyro xine Sodium daily 06/08 completed 90708; Recorded 01/09/20 6:06PM by Shirley Quevedo (Authori [...] Not Available Vitals Date Recorded Body height Provider Name an d Address Organization Details Last Updated DateTime 06/24/2025 154.94 cm FELISHA DESIR [facility] 06/24/2025 12:34:26 Date Recorded Body mass index (BMI) Body weight Oxygen saturation Heart rate Respiratory rate Body temperature Systolic And Diastolic Provider Name and Address Organization Details Last Updated DateTime 28.9 kg/m2 09313.6 3 g 97 % 95 /min 18 /min 97 [degF] 132/82 mm[Hg] Jacklyn Lalito [facility] 12:39:39 Social History Question Answer Notes LastModified by [employer] Details LastModified Time Tobacco Smoking Status Former Smoker [facility] 04/17/2023 14:48:01 What Was The Date Of Your Most Recent Tobacco Screening? 05/27/2025 [email or web address] Information not available 05/27/2025 Sex: Unknown Functional Status Question Answer Note LastModified by [employer] Details LastModified Time Do you use any illicit or recreational drugs? No [email or web address] Information not available 04/17/2023 Do you or have you ever used any other forms of tobacco or nicotine? No [email or web address] Information not available 06/29/2023 What is your level of alcohol consumption? None [email or web address] Information not available 04/17/2023 Mental Status None [...] MDCK, quadrivalent, PF 2 completed FELISHA hamilton, [facility] 10/10/2024 08:38:58 COVID-19, mRNA, LNP-S, PF, 100 mcg/0.5mL dose or 50 mcg/0.25mL dose 1 completed FELISHA hamilton [facility] 10/10/2024 08:38:58 COVID-19, mRNA, LNP-S, PF, 100 mcg/0.5mL dose or 50 mcg/0.25mL dose 1 completed FELISHA hamilton [facility] 10/10/2024 08:38:58 COVID-19, mRNA, LNP-S, PF, 100 mcg/0.5mL dose or 50 mcg/0.25mL dose 2 completed FELISHA hamilton [facility] 10/10/2024 08:38:58 Pneumococcal conjugate PCV20, polysaccharide [id number] conjugate, adjuvant, PF 3 completed FELISHA hamilton [facility] 10/10/2024 08:38:58 COVID-19, mRNA, LNP-S, bivalent, PF, 50 mcg/0.5 mL or 25mcg/0.25 mL dose 3 completed FELISHA hamilton [facility] 10/10/2024 08:38:58 pneumococcal polysaccharide PPV23 3 completed FELISHA hamilton [facility] 04/17/2023 12:02:00 Tdap 1 completed FELISHA hamilton [facility] 10/10/2024 08:38:58 Influenza, split virus, trivalent, PF 3 completed FELISHA hamilton [facility] 04/17/2023 12:02:00 influenza, split (incl. purified surface antigen) 0 completed FELISHA DESIR null, [facility] 04/17/2023 12:02:00 Hep A, adult 1 completed FELISHA DESIR null, [facility] 10/10/2024 08:38:58 Hep A, adult 9 completed FELISHA DESIR null, [facility] 10/10/2024 08:38:58 Influenza, split virus, quadrivalent, PF 1 completed FELISHA DESIR null, [facility] 10/10/2024 08:38:58 Influenza, split virus, quadrivalent, PF 9 completed FELISHA DESIR null, [facility] 10/10/2024 08:38:58 Influenza, MDCK, trivalent, PF 4 completed FELISHA DESRI null, [facility] 10/10/2024 08:38:58 Influenza, MDCK, quadrivalent, preservative 3 completed [facility] 10/10/2024 08:38:58 pneumococcal polysaccharide PPV23 8 completed Lola Vidal null, [facility] 07/02/2024 08:41:52 Influenza, split virus, quadrivalent, PF 8 completed Lola Vidal null, [facility] 07/02/2024 08:41:52 zoster recombinant 3 completed Lola Vidal null, [facility] 07/02/2024 14:52:40 COVID-19, mRNA, LNP-S, PF, 50 mcg/0.5 mL 4 completed FELISHA hamilton, [facility] 10/10/2024 08:38:58 Influenza, MDCK, trivalent, preservative 4 completed FELISHA DESIR alfonso, [facility] 10/10/2024 08:38:58 Past Encounters Encounter ID Performer Location Encounter Start Date Encounter Closed Date Diagnosis/Indication Diagnosis SNOMED-CT Code Diagnosis ICD10 Code Diagnosis IMO Codes Diagnosis Note [id number] SHARON HARDIN [facility] ([facility]) [address] [place] [address] 05/27/2025 10:23:37 05/27/2025 11:20:20 Abdominal mass 801943107 R19.00 [id number] Sent to ER for CT scan to r/o strangulat ed hernia to right inguinal region. Portable Pinch Riveter transporti pt. [id number] Lyn Marmolejo MD [facility] ([facility]) [address] [place] [address] 06/05/2025 11:28:33 06/08/2025 12:35:39 Hypothyroidism 21508352 E03.9 Viral screening 30007762 4 Z11.59 8916462 Physical examination 588 0005 Z00.00 238376 Long-term current use of drug therapy 235711931 Z79.818 [id number] Lyn Marmolejo MD [facility] ([facility]) [address] [place] [address] 06/11/2025 10:52:49 06/12/2025 12:43:36 Hypercalcemia 24254261 E83.52 [id number] Lyn Marmolejo MD [facility] ([facility]) [address] [place] [address] 06/24/2025 12:18:01 06/30/2025 13:41:59 Hyperparathyroidism 30657162 E21.3 34588 corrected and ionized calcium are normalgfr 52 and stable Vitamin D deficiency 347 [address]31 E55.9 12169 Health Concerns Section Related Observation LastModified by Organization Detai ls LastModified Time None Recorded Concern Status LastModified by Organization Details LastModified Time None Recorded Payers Encounter Date Sequence Insurance Name Policy Number Policy Hernandez Covered Member ID Hernandez Member ID Guarantor Name 06/24/2025 1 [place]ANTAGE - PPO) [id number] Odilia Ulloa [id number] Odilia Ulloa 06/24/2025 2 [place] Odilia Ulloa [id number] Odilia Ulloa Notes Date Note Type Note Provider Name and Address Organization Details Recorded Time 5 text/html follow up on lab results: Pt is here today to discuss her elevated calcium levels she has no bone pain and no signs of kidney stones. also, she was seen in the er for a hernia which was reduced. she reports she is pain free from the hernia. she saw the surgeon recently the report is as follows. [facility] General Surgery @ [id number] [place], [place] [address]Rjltjv Visit ReportSignedPatient: Alan Ulloa#: [id number]: 1950Acct#:[id number]/Sex: 74 / FADM Date: 06/23/25Loc: GSGYORoom/Bed:Attending Dr: Esau Lewis [facility]ort Number: [id number] CommentsDetails:74-year-o ld female who presents to my office for evaluation of right inguinal hernia. According to the patient she has noted a bulge on the right groin that gets bigger and then kind of goes away whenever she lays down. Denies significant pain, has not noticed any changes in size recently. Denies obstructive symptoms.Allergiesdiltiaz em (From [facility]) Allergy (Verified 06/23/25 10:03)Unknownmorphine Allergy (Verified 06/23/25 10:03)UnknownHome Medications- Last Reconciled 06/23/25 by Francy Calero, LPNacetaminophen 500 mg PO F1Lcbxmjhwslp 200 mg PO PRN PRNbismuth subsalicylate (Pepto-Bismol Max St) 525 mg PO Q8H PRNcetirizine (Zyrtec) 10 mg PO PRN PRNfolic acid 1 mg PO DAILYfurosemide 60 mg (1.5 x 40 mg) PO DAILY@0700galantamine ER 8 mg PO QAM 90 dayshydroxyzine HCl 25 mg PO TID PRNipratropium bromide 2 sprays intranasal TID PRNlevothyroxine (Euthyrox) 75 mcg PO DAILY@0700magnesium hydroxide (Milk of Magnesia) 30 mL PO PRN PRNmeclizine 12.5 mg PO Q6H PRNmecobalamin (vitamin B12) (B12 Active) 1,000 mcg PO DAILYmemantine 5 mg PO BIDmetoprolol tartrate 100 mg PO BIDmirtazapine 15 mg PO DAILYnaproxen (Naprosyn) 500 mg PO BID PRNnitroglycerin (Nitrostat) 0.4 mg sublingual Q5M PRNondansetron 4 mg PO Q6H PRNpantoprazole 40 mg PO DAILYpolyethylene glycol 3350 (Miralax) 4 grams PO DAILY PRNpotassium chloride ER 20 mEq PO BID@0700,1900spironolacto ne 25 mg PO DAILYtramadol 50 mg PO Q6H PRNwarfarin Take 1 tablet by mouth on Sunday , Sunday , , Sunday , and SundayHeld on 04/22/25. Instructions: Resume on 04/26/25.warfarin take 1 tablet by mouth on Sunday and SundayPFSHPFSH: Medical History Chronic anxietyHistory of iron deficiency anemiaAlzheimer diseaseCKD (chronic kidney disease) stage 2, GFR 60-89 ml/minHypertensionCAD (coronary artery disease)CHF (congestive heart failure)InsomniaHypothyro idHyperlipidemiaChronic neck and back painGERD (gastroesophageal reflux disease)Chronic atrial fibrillationChronic constipationSurgical History History of heart artery stentCoronary angioplasty/stent placement in 2011 and in 2012Hx of [id number]/O esophagogastroduodenoscop y2012, 2017, and 2018S/P cholecystectomyH/O sectionMitral valve replacedvalve replacement 1995Family History OtherCAD (coronary artery disease)DiabetesSocial History Smoking and tobacco/nicotine status: never used tobacco/nicotineAlcohol intake: neverSubstance/Drug Use: neverHousing: Assisted Living FacilityMarital status: SingleNumber of children: 1Current occupational status: disabledCurrent gender identity: FemaleFemale Reproductive History: Para: 1Dietary Habits: Caffeine: YesReview of SystemsConst: Denies: fever(s), chills, change in weight or fatigueEyes: Denies: change in visionCard: Denies: chest painResp: Denies: dyspneaGI: Denies: abdominal pain or hematocheziaGU: Denies: dysuriaSkin/Breast: Denies: rash, nipple discharge or breast massNeuro: Denies: seizure-like activityHema/Lymph: Denies: easy bruisingVital Signs3:0308// 510:3300:04Height 5 ft 2 in5 ft 2 in5 ft 2 sgCtsdvr408 lbBMI27.1FF464/58Blood Pressure LocationRt brachialPositionSittingRe yjouffxuu50Wslre93Xupkk SourcePulse KvkvavkuUtcg50.7 FTemp SourceOralPulse Oximetry (%)94Oxygen Delivery MethodRoom AirPhysical ExamGI: OTHER:Benign abdominal exam. In the right groin there is a right inguinal hernia that is easily reducible.Assessment & PlanAssessment & Plan1. Inguinal hernia:Plan: I have discussed with the patient the findings of the physical examination, she does have a right groin hernia that is easily reducible. Since patient had had a previous surgical intervention via infraumbilical midline laparotomy she is not a good candidate for it total extraperitoneal repair. Therefore I have offered her to proceed with an open repair with mesh. After discussing all risk and benefits patient has stated that she will prefer to wait before deciding on going forward with hernia repair. I have given warning signs and Explained the possibility of incarceration and strangulation I have explained that although the possibility is low something that she should keep in mind and return to the hospital as needed. She shows understanding agrees with the plan she will follow-up in my office in 3 months if she changes her mind in the meantime she will give us a call and we will schedule her for surgery.CodingLevel of Care CodeOFFICE/ OP VISIT EST LV 4DiagnosesInguinal hernia K40.90Additional CodesPain - Is Patient in Pain?:No ([id number])Med Rec - Medication Rec. Completed:Yes ([id number])Blood Pressure - Systolic Blood Pressure:Systolic 130-139 ([id number])Blood Pressure - Diastolic Blood Pressure:Diastolic <80 (23678456)BMI - BMI Value:BMI Measured (37300411)IntakeVisit Reasons: Inguinal HerniaPain scale (0-10 scale): 0Is the reason for visit related to pain management?: NoAllergiesdiltiazem (From Cardizem) Allergy (Verified 06/23/25 10:03)Unknownmorphine Allergy (Verified 06/23/25 10:03)UnknownHome Medications Home Medications- Last Reconciled 06/23/25 by Francy Catrp, LPNacetaminophen 500 mg PO X4Ppazwltcqiq 200 mg PO PRN PRNbismuth subsalicylate (Pepto-Bismol Max St) 525 mg PO Q8H PRNcetirizine (Zyrtec) 10 mg PO PRN PRNfolic acid 1 mg PO DAILYfurosemide 60 mg (1.5 x 40 mg) PO DAILY@0700galantamine ER 8 mg PO QAM 90 dayshydroxyzine HCl 25 mg PO TID PRNipratropium bromide 2 sprays intranasal TID PRNlevothyroxine (Euthyrox) 75 mcg PO DAILY@0700magnesium hydroxide (Milk of Magnesia) 30 mL PO PRN PRNmeclizine 12.5 mg PO Q6H PRNmecobalamin (vitamin B12) (B12 Active) 1,000 mcg PO DAILYmemantine 5 mg PO BIDmetoprolol tartrate 100 mg PO BIDmirtazapine 15 mg PO DAILYnaproxen (Naprosyn) 500 mg PO BID PRNnitroglycerin (Nitrostat) 0.4 mg sublingual Q5M PRNondansetron 4 mg PO Q6H PRNpantoprazole 40 mg PO DAILYpolyethylene glycol 3350 (Miralax) 4 grams PO DAILY PRNpotassium chloride ER 20 mEq PO BID@0700,1900spironolacto ne 25 mg PO DAILYtramadol 50 mg PO Q6H PRNwarfarin Take 1 tablet by mouth on Sunday , Sunday , , Sunday , and SundayHeld on 04/22/25. Instructions: Resume on 04/26/25.warfarin take 1 tablet by mouth on Sunday and SundayAnnual AssessmentsDate Next DueAnnual Assessment Dates Next Due:Date of Next Flu Bgptwhyplx03/09/26Date of Next Abuse Tuwmrseljp73/09/26Flu Vaccine-YearlyDate of Next Flu Assessment: 05/06/26Annual Influenza Vaccine: YesAbuse-YearlyDate of Next Abuse Assessment: 05/06/26Do you observe any indication of self neglect?: NoAny signs of caregiver neglect?: NoAre you depressed?: NoDo you wish to harm yourself or anyone else?: NoCrisis hotline information provided?: YesQualityHealth MaintenanceDoes patient have any barriers to learning?: NoDoes patient have any communication needs?: GlassesDoes patient use assistive: No Cane, Yes Walker, No Wheelchair, No Commode Chair, No Hospital Bed and No Respiratory Assist DeviceMedication Rec. Completed: YesCultural or Jewish Beliefs: NoDate Next DueAnnual Assessment Dates Next Due:Date of Next Flu Vgwjvjaapb35/09/26Date of Next Abuse Ymrhqgglis81/09/26 Lyn Marmolejo MD [address] [place] [address], [phone], [facility], [place] 06/24/2025 13:11:09 OBGyn Episode No OBEpisode recorded.
--- OUTSIDE RECORDS SUMMARY | 2025-09-19 05:42 | XMS_ITS | Continuity of Care Document ---
Author Organization [facility] [place], [facility] ([facility]) Address [address] [place] [address] Care Team Providers Care Excelsior Cutter Name Role Phone LYN MARMOLEJO Primary Care Provider [phone] Assessment No assessment recorded. Plan of Treatment Reminders Order Date Submit Date Provider Last Modified By Organization Details Last Modified Time Details Appointments None record ed. Lab PT/INR 025 07/16/20 25 QUENTIN [facility]), [address] [place], [address], 12:57:11 Referral None record ed. Procedures None record ed. Surgeries None record ed. Imaging None record ed. Medication Orders None record ed. Patient TargetsNo targets recorded. Patient InstructionsNo instructions recorded. Reason for Referral None Reported. Results Created Date Observation Date Name Description Value Unit Range Abnormal Flag Note LastModifiedBy Organization Detail LastModifiedTime 06/24/2006/24/2025 PT/IN R Protime 40.9 Not Available [facility]) [address] [place], [address], 06/24/2025 13:13:54 06/24/20 25 06/24/2025 PT/IN R INR 3.4 Not Available [facility] ([facility]) [address] [place], [address], 06/24/2025 13:13:54 07/02/20 25 07/02/2025 PT/IN R Protime 42.3 Not Available [facility] ([facility]) [address] [place], [address], 07/01/2025 10:25:07 07/02/20 25 07/02/2025 PT/IN R INR 3.5 Not Available [facility] ([facility]) [address] [place], [address], 07/01/2025 10:25:07 07/06/20 25 07/06/2025 PT/IN R Protime 39.5 Not Available [facility] ([facility]) [address] [place], [address], 07/06/2025 11:23:26 07/06/20 25 07/06/2025 PT/IN R INR 3.3 Not Available [facility] ([facility]) [address] [place], [address], 07/06/2025 11:23:26 07/09/20 25 07/09/2025 PT/IN R Protime 34.6 Not Available [facility] ([facility]) [address] [place], [address], 07/09/2025 13:44:17 07/09/20 25 07/09/2025 PT/IN R INR 2.9 Not Available [facility] ([facility]) [address] [place], [address], 07/09/2025 13:44:17 07/14/20 25 07/14/2025 URINA LYSIS WITH MICRO color YELLOW Not Available [facility] [address] [place] [address], [address], 07/14/2025 14:52:32 07/14/20 25 07/14/2025 URINA LYSIS WITH MICRO clarity CLEAR Not Available [facility] [address], [place], [address], 07/14/2025 14:52:32 07/14/20 25 07/14/2025 URINA LYSIS WITH MICRO glu NEGATI VE Not Available [facility] [address], [place], [address], 07/14/2025 14:52:32 07/14/2007/14/2025 URINA LYSIS WITH MICRO bili NEGATI VE Not Available [facility] [address], [place], [address], 07/14/2025 14:52:32 07/14/2007/14/2025 URINA LYSIS WITH MICRO ket NEGATI VE Not Available [facility] [address], [place], [address], 07/14/2025 14:52:32 07/14/20 25 07/14/2025 URINA LYSIS WITH MICRO S.g 1.010 1.005- 1.025 Not Available [facility] [address], [place], [address], 07/14/2025 14:52:32 07/14/20 25 07/14/2025 URINA LYSIS WITH MICRO pH 5.0 5.0-7. 0 Not Available [facility] [address], [place], [address], 07/14/2025 14:52:32 07/14/20 25 07/14/2025 URINA LYSIS WITH MICRO pro NEGATI VE Not Available [facility] [address], [place], [address], 07/14/2025 14:52:32 07/14/20 25 07/14/2025 URINA LYSIS WITH MICRO uro 0.2 E.U./D L Not Available [facility] [address] [facility] [address], [place], [address], 07/14/2025 14:52:32 07/14/20 25 07/14/2025 URINA LYSIS WITH MICRO nit NEGATI VE Not Available [facility] [address], [place], [address], 07/14/2025 14:52:32 07/14/20 25 07/14/2025 URINA LYSIS WITH MICRO blo NEGATI VE Not Available [facility] [address], [place], [address], 07/14/2025 14:52:32 07/14/20 25 07/14/2025 URINA LYSIS WITH MICRO jose elias NEGATI VE Not Available [facility] [address], [place], [address], 07/14/2025 14:52:32 07/14/20 25 07/14/2025 URINA LYSIS WITH MICRO WBC 0-1 abnormal Not Available [facility] [address], [place], [address], 07/14/2025 14:52:32 07/14/20 25 07/14/2025 URINA LYSIS WITH MICRO RBC NEGATI VE Not Available [facility] [address], [place], [address], 07/14/2025 14:52:32 07/14/20 25 07/14/2025 URINA LYSIS WITH MICRO epi cells 1-2 abnormal Not Available [facility] [address], [place], [address], 07/14/2025 14:52:32 07/14/20 25 07/14/2025 URINA LYSIS WITH MICRO bacteria 1-2 HYALIN E CAST abnormal Not Available [facility] [address] [facility] [address], [place], [address], 07/14/2025 14:52:32 07/14/2007/14/2025 URINA LYSIS WITH MICRO other NEG Not Available [facility] [address] [facility] [address], [place], [address], 07/14/2025 14:52:32 07/14/20 25 07/16/2025 CULTU RE, URINE , ROUTI NE culture, urine, routine SEE NOTE CULTU RE, URINE , ROUTI NE Micro Numbe r: [id number] Test Statu s: Final Speci men Sourc e: Urine Speci men Quali ty: Adequ ate Resul t: No Growt h Not Available [email or web address] [facility] [address] [place], [address], 07/16/2025 02:51:13 07/17/2007/17/2025 PT/IN R Protime 34.4 Not Available [facility] ([facility]) [address] [place], [address], 07/16/2025 12:07:15 07/17/2007/17/2025 PT/IN R INR 2.9 Not Available [facility] ([facility]) [address] [place], [address], 07/16/2025 12:07:15 08/05/2008/04/2025 XR, cervi luisito spine , 2 or 3 view No observ ation record ed. [facility] [place] [address] [place], [address], 08/07/2025 13:25:55 08/05/20 25 08/04/2025 XR, shoul vito, 2 or more view No observ ation record ed. [facility] [place] [address] [place], [address], 08/07/2025 13:25:55 09/09/20 25 09/08/2025 US, echoc ardio gram, trans thora cic, compl ete, w/ color flow No observ ation record ed. [facility] [address] [place], [address], 09/11/2025 09:19:21 09/15/2009/15/2025 MAMMO , scree ilya, digit al, bilat eral No observ ation record ed. [facility] [address] [place], [address], 09/16/2025 16:09:54 Result Notes None recorded. Problems Name Problem SNOMED Code Status Onset Date Resolution Date Notes Provider Name and Address Organization Details Recorded Time Depressi ve disorder 06882293 Completed 202010/14/2021 Depressi on - Status is Inactive ; 10/14/20 11:08AM by Maryellen Marmolejo PA-C, Annotati on/Adden dum; Promoted ; acuity set as *; FELISHA hamilton [facility] 5 07:56:57 Herpes zoster 2516474 Completed 202201/02/2025 SHINGLES FELISHA hamilton, [facility] 5 07:56:03 Dysthymi a 12966769 Active 2022 DEPRESSI ON WITH ANXIETY FELISHA hamilton [facility] 5 07:55:28 Benign essentia l hyperten jovanni 1920080 Active 2022 FELISHA hamilton [facility] 5 07:55:28 Gastroes ophageal reflux disease 070196063 Active 2022 FELISHA hamilton [facility] 5 07:55:28 Fracture of upper end of humerus 261721857 Completed 202201/02/2025 CLOSED FRACTURE OF PROXIMAL END OF RIGHT HUMERUS, SEQUELA FELISHA hamilton, [facility] 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 5 07:56:22 Atrial fibrilla tion 94325058 Active 2022 FELISHA hamilton, [facility] 3 14:45:05 Coronary atherosc lerosis 624491877 Active 2022 bare metal stents to circ and LAD 2011 FELISHA hamilton, [facility] 3 14:46:30 Iron deficien cy anemia 06972648 Active 2022 FELISHA hamilton, [facility] 5 07:55:28 Hypothyr oidism 59187327 Active 2022 FELISHA hamilton, [facility] 14:45:59 Anxiety 00092496 [facility] 2022 [facility] 14:46:54 Viral hepatiti s C 11179556 Active 2022 FELISHA hamilton, [facility] 5 07:55:28 Moderate recurren t major depressi on 46730909 Active 2023 FELISHA hamilton, [facility] 5 07:55:28 Need for personal care assistan ce 10728536736 475079 Active 2023 FELISHA hamilton [facility] 5 07:55:28 Frail elderly 912432108 Active 2023 FELISHA DESIR null, [facility] 5 07:55:28 Seasonal allergic rhinitis 834169915 Active 2023 FELISHA DESIR null, [facility] 5 07:55:28 Chronic pain 66583865 Active 2023 FELISHA DESIR null, [facility] 5 07:55:28 Dementia 97994309 Active 2023 FELISHA DESIR null, [facility] 5 07:55:28 Constipa tion 71940410 Active 2023 FELISHA DESIR null, [facility] 5 07:55:44 Hyperlip idemia 71900401 Active 2024 FELISHA DESIR null, [facility] 5 07:59:38 Occult blood detected in feces 03347035 Active 2024 FELISHA DESIR null, [facility] 5 09:13:35 Mean corpuscu lar volume above referenc e range 358126065 Active 2024 FELISHA DESIR null, [facility] 5 09:14:07 Hypercal cemia 66802199 Active 2024 FELISHA DESIR null, [facility] 5 10:07:49 Vitamin D deficien cy 26019200 Active 2024 Lyn Marmolejo MD [address] [place] [address], [address], [facility] 5 12:54:55 Hyperpar athyroid ism 97130213 Active 2024 Lyn Marmolejo MD [address] [place], [address], [facility], [facility] 5 12:54:56 Dysuria 15339611 Active 2024 Dotty Celis null, [facility] 5 14:08:08 Problem Notes None recorded. Procedures Surgical History Date Name Laterality Status Provider Name and Address Organization Details Recorded Time 2024 Most Recent Mammogram completed FELISHA DESIR [facility] 5 16:09:39 2024 esophagogastroduodenoscopy completed YANELIS WELSH [facility] 5 12:23:16 2024 colonoscopy completed FELISHA [facility] 5 10:20:11 2023 esophagogastroduodenoscopy completed KIARA DUCKWORTH [facility] 4 12:40:14 2023 colonoscopy completed Lyn Marmolejo MD [address] [place], [address], [facility] 5 10:19:30 cholecystectomy completed FELISHA [facility] 3 14:48:40 replacement of mitral valve complete d FELISHA [facility] 3 14:49:22 [facility] 15:14:43 Imaging Results None recorded. Procedure Notes None recorded. Medical Equipment None Reported. Allergies Allergen ID Allergen Name Allergen Category Reaction Reaction Severity Criticality Documentation Date Start Date Code Code System Note Provider Name and Address Organization Details Recorded Time 1376 morphine medicatio n Not available Not available Not available 02/07/2023 7052 RxNorm Dotty Celis [facility] 3 10:45:47 1377 diltiazem Not available Not available Not available Not available 02/07/2023 3443 RxNorm Dotty Sharmaoch [facility] 3 10:45:54 4552 Bactrim medicatio n other severe high 04/17/2023 43619 9 RxNorm do not give d/t couma din Lola Marcy [facility] 4 13:34:33 46934 diltiazem hydrochlo ride medicatio n Not available Not available Not available 05/26/202398409 1 RxNorm Comme nt: Recor ded 12/29 7:56A M by Yanelis Kitchen on, PLANT SUPERINTENDENT, 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 ; Promo talib; Signi fican ce: *; Reaso n: Drug aller gy; ; [facility] 3 12:26:44 61589 morphine sulfate medicatio n Not available Not available Not available 05/26/2023 66426 RxNorm Comme nt: Recor ded 12/29 7:56A M by Yanelis Kitchen on, PLANT SUPERINTENDENT, 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 ; Promo talib; Signi fican ce: *; Reaso n: Drug aller gy; ; [facility] 3 12:26:48 Medications Name Sig [...] THSC Levothyro xine Sodium daily 06/08 completed 41903; Recorded 01/09/20 6:06PM by Shirley Quevedo (Authori [...] Tobacco Smoking Status Former Smoker FELISHA hamilton [facility] 04/17/2023 14:48:01 What Was The Date Of Your Most Recent Tobacco Screening? 05/27/2025 [email or web address] Information not available 05/27/2025 Sex: Unknown Functional Status Question Answer Note LastModified by Organizat ion Details LastModified Time Do you use any illicit or recreational drugs? No [email or web address] Information not available 04/17/2023 Do you or have you ever used any other forms of tobacco or nicotine? No [email or web address] Information not available 06/29/2023 What is your level of alcohol consumption? None Information not available 04/17/2023 Mental Status None recorded. Family History Relationship Description Onset Age of this Age Resolved Age Notes LastModified by Organization Details LastModified Time Unspecified Relation Coronary atherosclero sis [email or web address] Not available 06/29 15:13:48 Medical History No medical history recorded. Gynecological History Statement/Question Response Most Recent Mammogram 09/15/2025 Obstetrics History GPAL:G 0 P 0 0 0 0 Immunizations Vaccine Type Date Status Note Provider Nam e and Address Organization Details Recorded Time Influenza, MDCK, quadrivalent, PF 2 completed FELISHA hamilton [facility] 10/10/2024 08:38:58 COVID-19, mRNA, LNP-S, PF, 100 mcg/0.5mL dose or 50 mcg/0.25mL dose 1 completed FELISHA hamilton [facility] 10/10/2024 08:38:58 COVID-19, mRNA, LNP-S, PF, 100 mcg/0.5mL dose or 50 mcg/0.25mL dose 1 completed FELISHA hamilton [facility] 10/10/2024 08:38:58 COVID-19, mRNA, LNP-S, PF, 100 mcg/0.5mL dose or 50 mcg/0.25mL dose 2 completed FELISHA hamilton, [facility] 10/10/2024 08:38:58 Pneumococcal conjugate PCV20, polysaccharide LEA105 conjugate, adjuvant, PF 3 completed FELISHA hamilton, [facility] 10/10/2024 08:38:58 COVID-19, mRNA, LNP-S, bivalent, PF, 50 mcg/0.5 mL or 25mcg/0.25 mL dose 3 completed [facility] 10/10/2024 08:38:58 pneumococcal polysaccharide PPV23 3 completed [facility] 04/17/2023 12:02:00 Tdap 1 completed [facility] 10/10/2024 08:38:58 Influenza, split virus, trivalent, PF 3 completed [facility] 04/17/2023 12:02:00 influenza, split (incl. purified surface antigen) 0 completed FELISHA hamilton, [facility] 04/17/2023 12:02:00 Hep A, adult 1 completed FELISHA hamilton, [facility] 10/10/2024 08:38:58 Hep A, adult 9 completed [facility] 10/10/2024 08:38:58 Influenza, split virus, quadrivalent, PF 1 completed [facility] 10/10/2024 08:38:58 Influenza, split virus, quadrivalent, PF 9 completed FELISHA DESIR null, [facility] 10/10/2024 08:38:58 Influenza, MDCK, trivalent, PF 4 completed FELISHA DESIR null, [facility] 10/10/2024 08:38:58 Influenza, MDCK, quadrivalent, preservative 3 completed FELISHA DESIR null, [facility] 10/10/2024 08:38:58 pneumococcal polysaccharide PPV23 8 completed Lola hamilton, [facility] 07/02/2024 08:41:52 Influenza, split virus, quadrivalent, PF 8 completed Lola hamilton, [facility] 07/02/2024 08:41:52 zoster recombinant 3 completed Lola hamilton, [facility] 07/02/2024 14:52:40 COVID-19, mRNA, LNP-S, PF, 50 mcg/0.5 mL 4 completed FELISHA hamilton, [facility] 10/10/2024 08:38:58 Influenza, MDCK, trivalent, preservative 4 completed FELISHA DESIR null, [facility] 10/10/2024 08:38:58 Past Encounters Encounter ID Performer Location Encounter Start Date Encounter Closed Date Diagnosis/Indication Diagnosis SNOMED-CT Code Diagnosis ICD10 Code Diagnosis IMO Codes Diagnosis Note [id number] Lyn Marmolejo MD [facility] ([facility]) [address] [place] [address] 06/24/2025 12:18:01 06/30/2025 13:41:59 Hyperparathyroidism 77015267 E21.3 27503 corrected and ionized calcium are normalgfr 52 and stable Vitamin D deficiency 347 29299 E55.9 81125 [id number] Lyn Marmolejo MD [facility] ([facility]) [address] [place] [address] 07/01/2025 10:24:23 07/02/2025 11:29:38 Atrial fibrillation 91846550 I48.91 warfarin therapy [id number] Lyn Marmolejo MD [facility] ([facility]) [address] [place], [place] [address] 07/03/2025 08:14:55 07/13/2025 10:06:37 Benign essential hypertension 0987810 I10 Coronary atherosclerosis 877390203 I25.119 Atrial fibrillation 4943 6004 I48.91 warfarin therapyd/c naproxen d/t hx of bleeding Hyperlipidemia 34042452 E78.00 Hypothyroidism 31642797 E03.9 Hyperparathyroidism 6699 9008 E21.3 52862 [id number] Lyn Marmolejo MD [facility] ([facility]) [address] [place], [place] [address] 07/06/2025 11:22:40 07/07/2025 09:33:46 History of mechanical prosthetic mitral valve replacement 219637767 Z95.2 [id number] Lyn Marmolejo MD [facility] ([facility]) [address] [place], [place] [address] 07/09/2025 13:42:58 07/10/2025 14:24:59 Atrial fibrillation 51318836 I48.91 warfarin therapyd/c naproxen d/t hx of bleeding [id number] Lyn Marmolejo MD [facility] ([facility]) [address] [place] [address] 07/14/2025 13:52:08 07/15/2025 10:22:44 Dysuria 34734325 R30.0 53365 will call with ua results [id number] Lyn Marmolejo MD [facility] ([facility]) [address] [place] [address] 07/16/2025 12:05:46 07/17/2025 11:01:38 Atrial fibrillation 88495468 I48.91 warfarin therapyd/c naproxen d/t hx of bleeding Health Concerns Section Related Observation LastModified by Organization Detai ls LastModified Time None Recorded Concern Status LastModified by Organization Details LastModified Time None Recorded Payers Encounter Date Sequence Insurance Name Policy Number Policy Hernandez Covered Member ID Hernandez Member ID Guarantor Name 07/16/2025 1 [id number]ANT[place] - PPO) [id number] Odilia Ulloa [id number] Odilia Ulloa 07/16/2025 2 [place] Odilia Ulloa [id number] Odilia Ulloa OBGyn Episode No OBEpisode recorded.
--- OUTSIDE RECORDS SUMMARY | 2025-09-19 05:42 | XMS_ITS | Encounter Summary ---
Author Organization [facility] Address [address] [place] [address] Care Team Providers Care Evp Business Development Name Role Phone Rico Muñiz MD, Sharan Jaime Primary Care Provider Encounter Details Date Type Department Care Team (Latest Contact Info) Description 06/20/1999 Outpatient Historical [facility] [address] [place] [phone] Serge Arrington MD [address] [place] [address] Mitral valve disorder (Primary Dx); Unspecified essential hypertension; Other and unspecified hyperlipidemia; Hematuria Social History Tobacco Use Types Packs/Day Years Used Date Smoking Tobacco: Never Assessed Comments Unknown Sex and Gender Information Value Date Recorded Sex Assigned at Not on file 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
--- OUTSIDE RECORDS SUMMARY | 2025-09-19 05:42 | XMS_ITS | Encounter Summary ---
Author Organization [facility] Address [address] [place] [address] Care Team Providers Care Transportation Maintenance Supervisor Name Role Phone Rico Muñiz MD, Sharan Jaime Primary Care Provider Encounter Details Date Type Department Care Team (Latest Contact Info) Description 08/10/2005 Outpatient Historical [facility] [place] [address] [place] [address] Bill Negron MD [address] [place] [address] INT HEMORRHOID W/O COMPL (Primary Dx) Social History Tobacco Use Types Packs/Day Years Used Date Smoking Tobacco: Never Assessed Comments Unknown Sex and Gender Information Value Date Recorded Sex Assigned at Not on file 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
--- OUTSIDE RECORDS SUMMARY | 2025-09-19 05:42 | XMS_ITS | Encounter Summary ---
Author Organization [facility] Address [address] [place] [address] Care Team Providers Care Logistics Team Leader Name Role Phone Rico Muñiz MD, Sharan Jaime Primary Care Provider Encounter Details Date Type Department Care Team (Latest Contact Info) Description 05/24/2000 Outpatient Historical [facility] Sharan Gómez Jr., MD [address] [place] [address] Unspecified essential hypertension (Primary Dx); Osteoporosis, unspecified Social History Tobacco Use Types Packs/Day Years Used Date Smoking Tobacco: Never Assessed Comments Unknown Sex and Gender Information Value Date Recorded Sex Assigned at Not on file 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
--- OUTSIDE RECORDS SUMMARY | 2025-09-19 05:42 | XMS_ITS | Continuity of Care Document ---
Author Organization DAI [facility] Luis M, Keenan [facility] ([facility]) Address [address] [place] [address] Care Team Providers Care Char Dust Cleaner And Salvager Name Role Phone LYN MARMOLEJO Primary Care Provider Assessment No assessment recorded. Plan of Treatment Reminders Order Date Submit Date Provider Last Modified By Organization Details Last Modified Time Details Appointments None record ed. Lab PT/INR 025 07/01/20 [facility] ([facility]), [address] [place], [address], 11:04:48 Referral None record ed. Procedures None record ed. Surgeries None record ed. Imaging None record ed. Medication Orders None record ed. Patient TargetsNo targets recorded. Patient InstructionsNo instructions recorded. Reason for Referral None Reported. Results Created Date Observation Date Name Description Value Unit Range Abnormal Flag Note LastModifiedBy Organization Detail LastModifiedTime 06/05/2006/05/2025 HBA1C hemaglobin A1C 5.7 4.2-6. 5 Not Available [facility] [address], [place], [address], 06/05/2025 12:56:12 06/05/2006/05/2025 CMP (FEMA LE) glucose 86.0 mg/dL 60.0-9 9.0 Not Available [facility] [address], [place], [address], 06/05/2025 12:57:50 06/05/20 25 06/05/2025 CMP (FEMA LE) BUN (blood urea nitrogen) 17.0 mg/dL 10.0-2 6.0 Not Available [facility] [address] [facility], [place], [address], 06/05/2025 12:57:50 06/05/20 25 06/05/2025 CMP (FEMA LE) creatinine (serum) 0.9 mg/dL 0.4-1. 5 Not Available [facility] [address] [facility], [place], [address], 06/05/2025 12:57:50 06/05/20 25 06/05/2025 CMP (FEMA LE) BUN/creatini ne ratio 18.89 ratio Not Available [facility] [address] [facility] [facility], [place], [address], 06/05/2025 12:57:50 06/05/20 25 06/05/2025 CMP (FEMA LE) eGFR calculated 64.9 Not Available [facility] [address] [facility] [facility], [place], [address], 06/05/2025 12:57:50 06/05/20 25 06/05/2025 CMP (FEMA LE) total protein 7.6 g/dL 6.0-8. 5 Not Available [facility] [address] [facility] [address] [facility], [place], [address], 06/05/2025 12:57:50 06/05/20 25 06/05/2025 CMP (FEMA LE) total bilirubin 1.1 mg/dL 0.2-1. 3 Not Available [facility] [address] [facility], [place], [address], 06/05/2025 12:57:50 06/05/20 25 06/05/2025 CMP (FEMA LE) albumin 4.5 g/dL 3.5-5. 5 Not Available [facility] [address] [facility], [place], [address], 06/05/2025 12:57:50 06/05/20 25 06/05/2025 CMP (FEMA LE) globulin 3.1 calc Not Available [facility] [address] [place] [facility], [place], [address], 06/05/2025 12:57:50 06/05/20 25 06/05/2025 CMP (FEMA LE) AST (SGOT) 28.0 U/L 0.0-46 .0 Not Available [facility] [address] [facility], [place], [address], 06/05/2025 12:57:50 06/05/20 25 06/05/2025 CMP (FEMA LE) altv (SGPT) 14.0 U/L 13.0-6 9.0 normal Not Available [facility] [address] [facility], [place], [address], 06/05/2025 12:57:50 06/05/20 25 06/05/2025 CMP (FEMA LE) A/G ratio 1.5 ratio Not Available [facility] [address] [facility] [address], [place], [address], 06/05/2025 12:57:50 06/05/20 25 06/05/2025 CMP (FEMA LE) ALP phos 87.0 U/L 30.0-1 40.0 normal Not Available [facility] [address] [place] [facility], [place], [address], 06/05/2025 12:57:50 06/05/20 25 06/05/2025 CMP (FEMA LE) calcium 10.6 mg/dL 8.4-10 .5 high Not Available [facility] [address] [facility] 1, [place], [address], 06/05/2025 12:57:50 06/05/20 25 06/05/2025 CMP (FEMA LE) sodium 140.0 mmol/ L 136.0- 145.0 Not Available [facility] [address] [facility] 1, [place], [address], 06/05/2025 12:57:50 06/05/20 25 06/05/2025 CMP (FEMA LE) potassium 4.8 mmol/ L 3.5-5. 1 Not Available [facility] [address] [facility] 1, [place], [address], 06/05/2025 12:57:50 06/05/20 25 06/05/2025 CMP (FEMA LE) chloride 106.0 mmol/ L 98.0-1 10.0 normal Not Available [facility] [address] [facility] 1, [place], [address], 06/05/2025 12:57:50 06/05/20 25 06/05/2025 CMP (FEMA LE) C02 27.0 mmol/ L 22.0-3 1.0 Not Available [facility] [address] [facility] 1, [place], [address], 06/05/2025 12:57:50 06/05/20 25 06/05/2025 CMP (FEMA LE) anion gap 7.0 calc Not Available [facility] [address] [place] [facility], [place], [address], 06/05/2025 12:57:50 06/05/20 25 06/05/2025 CMP (FEMA LE) osmolality 290.0 calc Not Available [facility] [address] [facility] 1, [place], [address], 06/05/2025 12:57:50 06/05/20 25 06/05/2025 LIPID PROFI LE (FEMA LE) cholesterol 227.0 mg/dL 0.0-20 0.0 high Not Available [facility] [address] [facility] [address], [place], [address], 06/05/2025 12:57:53 06/05/20 25 06/05/2025 LIPID PROFI LE (FEMA LE) trig 134.0 mg/dL 0.0-15 0.0 Not Available [facility] [address] [facility] [address], [place], [address], 06/05/2025 12:57:53 06/05/20 25 06/05/2025 LIPID PROFI LE (FEMA LE) HDL - direct 51.0 mg/dL >40.0 Not Available [facility] [address] [facility] [address], [place], [address], 06/05/2025 12:57:53 06/05/20 25 06/05/2025 LIPID PROFI LE (FEMA LE) VLDL - direct 26.8 mg/dL Not Available [facility] [address] [facility] [address], [place], [address], 06/05/2025 12:57:53 06/05/20 25 06/05/2025 LIPID PROFI LE (FEMA LE) LDL - direct 149.2 mg/dL 0.0-13 0.0 high Not Available [facility] [address] [facility] [address], [place], [address], 06/05/2025 12:57:53 06/05/20 25 06/05/2025 TSH TSH 0.83 uIU/m L 0.49-3 .82 Not Available [facility] [address] [facility] [address], [place], [address], 06/05/2025 14:15:28 06/05/20 25 06/06/2025 HEPAT ITIS B SURFA CE ANTIB RASHARD QL hepatitis B surface antibody ql NON-RE ACTIVE non-re active normal Not Available [facility] [address] [place], [address], 06/06/2025 09:58:04 06/11/2006/11/2025 CMP (FEMA LE) glucose 88.0 mg/dL 60.0-9 9.0 Not Available [facility] [address] [facility], [place], [address], 06/11/2025 13:16:16 06/11/20 25 06/11/2025 CMP (FEMA LE) BUN (blood urea nitrogen) 25.0 mg/dL 10.0-2 6.0 Not Available [facility] [address] [facility] [address], [place], [address], 06/11/2025 13:16:16 06/11/20 25 06/11/2025 CMP (FEMA LE) creatinine (serum) 1.1 mg/dL 0.4-1. 5 Not Available [facility] [address] [facility], [place], [address], 06/11/2025 13:16:16 06/11/20 25 06/11/2025 CMP (FEMA LE) BUN/creatini ne ratio 22.73 ratio Not Available [facility] [address] [facility] [facility], [place], [address], 06/11/2025 13:16:16 06/11/20 25 06/11/2025 CMP (FEMA LE) eGFR calculated 51.5 Not Available [facility] [address] [facility], [place], [address], 06/11/2025 13:16:16 06/11/20 25 06/11/2025 CMP (FEMA LE) total protein 7.7 g/dL 6.0-8. 5 Not Available [facility] [address] [facility] 1, [place], [address], 06/11/2025 13:16:16 06/11/20 25 06/11/2025 CMP (FEMA LE) total bilirubin 0.9 mg/dL 0.2-1. 3 Not Available [facility] [address] [place] [facility], [place], [address], 06/11/2025 13:16:16 06/11/20 25 06/11/2025 CMP (FEMA LE) albumin 4.6 g/dL 3.5-5. 5 Not Available [facility] [address] [place] [facility], [place], [address], 06/11/2025 13:16:16 06/11/20 25 06/11/2025 CMP (FEMA LE) globulin 3.1 calc Not Available [facility] [address] [facility] 1, [place], [address], 06/11/2025 13:16:16 06/11/2006/11/2025 CMP (FEMA LE) AST (SGOT) 32.0 U/L 0.0-46 .0 Not Available [facility] [address] [facility] [address], [place], [address], 06/11/2025 13:16:16 06/11/2006/11/2025 CMP (FEMA LE) altv (SGPT) 15.0 U/L 13.0-6 9.0 normal Not Available [facility] [address] [place] [facility], [place], [address], 06/11/2025 13:16:16 06/11/20 25 06/11/2025 CMP (FEMA LE) A/G ratio 1.5 ratio Not Available [facility] [address] [facility] 1, [place], [address], 06/11/2025 13:16:16 06/11/2006/11/2025 CMP (FEMA LE) ALP phos 81.0 U/L 30.0-1 40.0 normal Not Available [facility] [address] [place] [facility], [place], [address], 06/11/2025 13:16:16 06/11/2006/11/2025 CMP (FEMA LE) calcium 10.4 mg/dL 8.4-10 .5 Not Available [facility] [address] [facility] 1, [place], [address], 06/11/2025 13:16:16 06/11/2006/11/2025 CMP (FEMA LE) sodium 142.0 mmol/ L 136.0- 145.0 Not Available [facility] [address] [facility] 1, [place], [address], 06/11/2025 13:16:16 06/11/2006/11/2025 CMP (FEMA LE) potassium 4.7 mmol/ L 3.5-5. 1 Not Available [facility] [address] [facility] 1, [place], [address], 06/11/2025 13:16:16 06/11/2006/11/2025 CMP (FEMA LE) chloride 106.0 mmol/ L 98.0-1 10.0 normal Not Available [facility] [address] [facility] 1, [place], [address], 06/11/2025 13:16:16 06/11/2006/11/2025 CMP (FEMA LE) C02 27.0 mmol/ L 22.0-3 1.0 Not Available [facility] [address] [facility] 1, [place], [address], 06/11/2025 13:16:16 06/11/2006/11/2025 CMP (FEMA LE) anion gap 9.0 calc Not Available [facility] [address] [place] [address], [place], [address], 06/11/2025 13:16:16 06/11/20 25 06/11/2025 CMP (FEMA LE) osmolality 296.7 calc Not Available [facility] [address] [place] [address], [place], [address], 06/11/2025 13:16:16 06/11/2006/12/2025 PTH, INTAC T (ICMA [...] Joie l High Not Available [facility] [place] [address] [place], [address], 06/12/2025 15:27:52 06/11/2006/12/2025 PTH, INTAC T (ICMA ) AND IONIZ ED CALCI UM calcium 10.1 mg/dL 8.6-10 .4 normal Not Available [facility] [place] [address] [place], [address], 06/12/2025 15:27:52 06/11/2006/12/2025 PTH, INTAC T (ICMA ) AND IONIZ ED CALCI UM calcium, ionized 5.5 mg/dL 4.7-5. 5 normal Not Available [facility] [place] [address] [place], [address], 06/12/2025 15:27:52 06/11/20 25 06/12/2025 VITAM IN [...] /MS is recom gagan d: order code [id number] (vargas ents >2yrs ). See Note 1 Note 1 For addit ional infor surya mclean e refer to http: //[facility] emma guidry.Vikash Riosia gnost ics.c om/fa q/FAQ 199 (This link is being provi ded for infor sarika stroud/ educkarla smart purpo ses only. ) Not Available [facility] [address] [place] [address], [address], 06/12/2025 15:27:54 06/24/20 25 06/24/2025 PT/IN R Protime 40.9 Not Available [facility] ([facility]) [address] [place] [address], [address], 06/24/2025 13:13:54 06/24/20 25 06/24/2025 PT/IN R INR 3.4 Not Available [facility] ([facility]) [address] [place] [address], [address], 06/24/2025 13:13:54 07/02/20 25 07/02/2025 PT/IN R Protime 42.3 Not Available [facility] ([facility]) [address] [place] [address], [address], 07/01/2025 10:25:07 07/02/20 25 07/02/2025 PT/IN R INR 3.5 Not Available [facility] ([facility]) [address] [place], [address], 07/01/2025 10:25:07 08/05/20 25 08/04/2025 XR, cervi luisito spine , 2 or 3 view No observ ation record ed. [facility] [address] [place], [address], 08/07/2025 13:25:55 08/05/2008/04/2025 XR, shoul vito, 2 or more view No observ ation record ed. [facility] [address] [place], [address], 08/07/2025 13:25:55 09/09/20 25 09/08/2025 US, [facility] ardio gram, trans thora cic, compl ete, w/ color flow No observ ation record ed. [facility] [address] [place], [address], 09/11/2025 09:19:21 09/15/20 25 09/15/2025 MAMMO , scree ilya, digit al, bilat eral No observ ation record ed. [email or web address] [place] [address], [address], 09/16/2025 16:09:54 Result Notes None recorded. Problems Name Problem SNOMED Code Status Onset Date Resolution Date Notes Provider Name and Address Organization Details Recorded Time Depressi ve disorder 44715253 Completed 202010/14/2021 Depressi on - Status is Inactive ; 10/14/20 11:08AM by Maryellen Marmolejo PA-C, Annotati on/Adden dum; Promoted ; acuity set as *; FELISHA DESIR [facility] [place] [facility] 5 07:56:57 Herpes zoster 5908328 Completed 202201/02/2025 SHINGLES FELISHA hamilton, [facility] L.L.CJosue 5 07:56:03 Dysthymi a 79943704 Active 2022 DEPRESSI ON WITH ANXIETY FELISHA hamilton, [facility] 5 07:55:28 Benign essentia l hyperten jovanni 1127171 Active 2022 FELISHA hamilton, [facility] 5 07:55:28 Gastroes ophageal reflux disease 336857696 Active 2022 FELISHA hamilton, [facility] 5 07:55:28 Fracture of upper end of humerus 628978707 Completed 202201/02/2025 CLOSED FRACTURE OF PROXIMAL END OF RIGHT HUMERUS, SEQUELA FELISHA hamilton, [facility] 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 5 07:56:22 Atrial fibrilla tion 21216559 Active 2022 FELISHA hamilton, [facility] 3 14:45:05 Coronary atherosc lerosis 190320253 Active 2022 bare metal stents to circ and LAD 2011 FELISHA hamilton [facility] 3 14:46:30 Iron deficien cy anemia 52722403 Active 2022 FELISHA hamilton [facility] L.L.CJosue 5 07:55:28 Hypothyr oidism 74224287 Active 2022 FELISHA DESIR null, [facility] 3 14:45:59 Anxiety 57641730 Active 2022 FELISHA DESIR null, [facility] 3 14:46:54 Viral hepatiti s C 39723002 Active 2022 FELISHA DESIR null, [facility] 5 07:55:28 Moderate recurren t major depressi on 87024572 Active 2023 FELISHA DESIR null, [facility] 5 07:55:28 Need for personal care assistan 56844590900 368181 Active 2023 FELISHA DESIR null, [facility] 5 07:55:28 Frail elderly 161551656 Active 2023 FELISHA DESIR null, [facility] 5 07:55:28 Seasonal allergic rhinitis 664163171 Active 2023 FELISHA DESIR null, [facility] 5 07:55:28 Chronic pain 73365338 Active 2023 FELISHA DESIR null, [facility] 5 07:55:28 Dementia 75594038 Active 2023 FELISHA DESIR null, [facility] 5 07:55:28 Constipa tion 52310814 Active 2023 FELISHA DESIR null, [facility] 5 07:55:44 Hyperlip idemia 40997274 Active 2024 FELISHA DESIR null, [facility] 5 07:59:38 Occult blood detected in feces 05994123 Active 2024 FELISHA hamilton [facility] 5 09:13:35 Mean corpuscu lar volume above referenc e range 725203716 Active 2024 FELISHA hamilton [facility] 5 09:14:07 Hypercal cemia 30046452 Active 2024 FELISHA DESIR [facility], [facility] 5 10:07:49 Vitamin D deficien cy 72756479 Active 2024 Lyn Marmolejo MD [address] [place] [address], [phone], [facility], [facility] 5 12:54:55 Hyperpar athyroid ism 79594574 Active 2024 Lyn Marmolejo MD [address] [place] [address], [phone], [facility] 5 12:54:56 Dysuria 65617311 Active 2024 [facility] 5 14:08:08 Problem Notes None recorded. Procedures Surgical History Date Name Laterality Status Provider Name and Address Organization Details Recorded Time 2024 Most Recent Mammogram completed FELISHA DESIR [facility] 5 16:09:39 2024 esophagogastroduodenoscopy completed YANELIS DESIR [facility] 5 12:23:16 2024 colonoscopy completed FELISHA DESIR [facility] 5 10:20:11 2023 esophagogastroduodenoscopy completed KIARA DUCKWORTH [facility] 4 12:40:14 2023 colonoscopy completed Lyn Marmolejo MD [address] [place] [address], [phone], [facility] 5 10:19:30 cholecystectomy completed FELISHA DESIR [facility] 3 14:48:40 replacement of mitral valve complete d FELISHA [facility] 3 14:49:22 section completed FELISHA DESIR [facility] 3 15:14:43 Imaging Results None recorded. Procedure Notes None recorded. Medical Equipment None Reported. Allergies Allergen ID Allergen Name Allergen Category Reaction Reaction Severity Criticality Documentation Date Start Date Code Code System Note Provider Name and Address Organization Details Recorded Time 1376 morphine medicatio n Not available Not available Not available 02/07/2023 7052 RxNorm Dottylizzie Celis [facility] 3 10:45:47 1377 diltiazem Not available Not available Not available Not available 02/07/2023 3443 RxNorm Dottylizzie Celis [facility] 3 10:45:54 4552 Bactrim medicatio n other severe high 04/17/2023 69160 9 RxNorm do not give d/t couma din Lola Vidal [facility] 4 13:34:33 31866 diltiazem hydrochlo ride medicatio n Not available Not available Not available 05/26/2023 1 RxNorm Comme nt: Recor ded 12/29 7:56A M by Yanelis Kitchen on, PATIENT CLERICAL ASSISTANT, 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 ; Promo talib; Signi fican ce: *; Reaso n: Drug aller gy; ; FELISHA hamilton, [facility] 3 12:26:44 94524 morphine sulfate medicatio n Not available Not available Not available 05/26/2023 04021 RxNorm Comme nt: Recor ded 12/29 7:56A M by Yanelis Kitchen on, PATIENT CLERICAL ASSISTANT, 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 ; Debra talib; Trey bernal ce: *; Reaso n: Drug aller gy; ; FELISHA hamilton, [facility] 3 12:26:48 Medications Name Sig [...] 01/02/20 3:42PM by Felisha Desir LPN (Authori zed [...] THSC Levothyro xine Sodium daily 06/08 completed 15531; Recorded 01/09/20 6:06PM by Shirley Quevedo (Authori [...] Status Former Smoker FELISHA DESIR [facility] 04/17/2023 14:48:01 What Was The Date Of Your Most Recent Tobacco Screening? 05/27/2025 [email or web address] Information not available 05/27/2025 Sex: Unknown Functional Status Question Answer Note LastModified by Organizat ion Details LastModified Time Do you use any illicit or recreational drugs? No [email or web address] Information not available 04/17/2023 Do you or have you ever used any other forms of tobacco or nicotine? No [email or web address] Information not available 06/29/2023 What is your level of alcohol consumption? None [email or web address] Information not available 04/17/2023 Mental Status None recorded. Family History Relationship Description Onset Age of this Age Resolved Age Notes LastModified by Organization Details LastModified Time Unspecified Relation Coronary atherosclero sis [email or web address] Not available 06/29 15:13:48 Medical History No medical history recorded. Gynecological History Statement/Question Response Most Recent Mammogram 09/15/2025 Obstetrics History GPAL:G 0 P 0 0 0 0 Immunizations Vaccine Type Date Status Note Provider Nam e and Address Organization Details Recorded Time Influenza, MDCK, quadrivalent, PF 2 completed FELISHA hamilton, [facility] 10/10/2024 08:38:58 COVID-19, mRNA, LNP-S, PF, 100 mcg/0.5mL dose or 50 mcg/0.25mL dose 1 completed FELISHA hamilton [facility] 10/10/2024 08:38:58 COVID-19, mRNA, LNP-S, PF, 100 mcg/0.5mL dose or 50 mcg/0.25mL dose 1 completed FELISHA hamilton [facility] 10/10/2024 08:38:58 COVID-19, mRNA, LNP-S, PF, 100 mcg/0.5mL dose or 50 mcg/0.25mL dose 2 completed FELISHA hamilton [facility] 10/10/2024 08:38:58 Pneumococcal conjugate PCV20, polysaccharide NRQ029 conjugate, adjuvant, PF 3 completed FELISHA hamilton [facility] 10/10/2024 08:38:58 COVID-19, mRNA, LNP-S, bivalent, PF, 50 mcg/0.5 mL or 25mcg/0.25 mL dose 3 completed FELISHA hamilton [facility] 10/10/2024 08:38:58 pneumococcal polysaccharide PPV23 3 completed FELISHA hamilton [facility] 04/17/2023 12:02:00 Tdap 1 completed FELISHA hamilton [facility] 10/10/2024 08:38:58 Influenza, split virus, trivalent, PF 3 completed FELISHA DESIR null, [facility] 04/17/2023 12:02:00 influenza, split (incl. purified surface antigen) 0 completed FELISHA DESIR null, [facility] 04/17/2023 12:02:00 Hep A, adult 1 completed FELISHA DESIR null, [facility] 10/10/2024 08:38:58 Hep A, adult 9 completed FELISHA DESIR null, [facility] 10/10/2024 08:38:58 Influenza, split virus, quadrivalent, PF 1 completed FELISHA DESIR null, [facility] 10/10/2024 08:38:58 Influenza, split virus, quadrivalent, PF 9 completed FELISHA DESIR null, [facility] 10/10/2024 08:38:58 Influenza, MDCK, trivalent, PF 4 completed FELISHA DESIR null, [facility] 10/10/2024 08:38:58 Influenza, MDCK, quadrivalent, preservative 3 completed FELISHA DESIR null, [facility] 10/10/2024 08:38:58 pneumococcal polysaccharide PPV23 8 completed Lola Vidal null, [facility] 07/02/2024 08:41:52 Influenza, split virus, quadrivalent, PF 8 completed Lola Vidal null, [facility] 07/02/2024 08:41:52 zoster recombinant 3 completed Lola Vidal null, [facility] 07/02/2024 14:52:40 COVID-19, mRNA, LNP-S, PF, 50 mcg/0.5 mL 4 completed FELISHA hamilton, [facility] 10/10/2024 08:38:58 Influenza, MDCK, trivalent, preservative 4 completed FELISHA hamilton, [facility] 10/10/2024 08:38:58 Past Encounters Encounter ID Performer Location Encounter Start Date Encounter Closed Date Diagnosis/Indication Diagnosis SNOMED-CT Code Diagnosis ICD10 Code Diagnosis IMO Codes Diagnosis Note [id number] Lyn Marmolejo MD [facility] ([facility]) [address] [place] [phone] 06/05/2025 11:28:33 06/08/2025 12:35:39 Hypothyroidism 82875483 E03.9 Viral screening 04291245 4 Z11.59 1713448 Physical examination 588 0005 Z00.00 868605 Long-term current use of drug therapy 288010904 Z79.805 [id number] Lyn Marmolejo MD [facility] ([facility]) [address] [place] [address] 79315-448 5 06/11/2025 10:52:49 06/12/2025 12:43:36 Hypercalcemia [id number] E83.52 [id number] Lyn Marmolejo MD [facility] ([facility]) [address] [place] [address] [phone] 5 06/24/2025 12:18:01 06/30/2025 13:41:59 Hyperparathyroidism [id number] E21.3 95044 corrected and ionized calcium are normalgfr 52 and stable Vitamin D deficiency [id number] E55.9 [id number] Lyn Marmolejo MD [facility] ([facility]) [address] [place] [address] [phone] 07/01/2025 10:24:23 07/02/2025 11:29:38 Atrial fibrillation [id number] I48.91 warfarin therapy Health Concerns Section Related Observation LastModified by Organization Detai ls LastModified Time None Recorded Concern Status LastModified by Organization Details LastModified Time None Recorded Payers Encounter Date Sequence Insurance Name Policy Number Policy Hernandez Covered Member ID Hernandez Member ID Guarantor Name 07/01/2025 1 [id number] - [place]PO) [id number] Odilia Ulloa [id number] Odilia Ulloa 07/01/2025 2 [place] Odilia Ulloa [id number] Odilia Ulloa OBGyn Episode No OBEpisode recorded.
--- OUTSIDE RECORDS SUMMARY | 2025-09-19 05:42 | XMS_ITS | Encounter Summary ---
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 Social History Tobacco Use Types Packs/Day Years Used Date Smoking Tobacco: Never Assessed Comments Unknown Sex and Gender Information Value Date Recorded Sex Assigned at Not on file 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
--- OUTSIDE RECORDS SUMMARY | 2025-09-19 05:42 | XMS_ITS | Encounter Summary ---
Author Organization [facility] Address [address] [place] [address] Care Team Providers Care Diaper Folder Name Role Phone Rico Muñiz MD, Sharan Jaime Primary Care Provider Encounter Details Date Type Department Care Team (Late st Contact Info) Description 10/25/2020 Lab Requisition [facility] [address] [place] [address] Paulina Peterson MD [address] [place] [address] Social History Tobacco Use Types Packs/Day Years Used Date Smoking Tobacco: Never Assessed Comments Unknown Sex and Gender Information Value Date Recorded Sex Assigned at Not on file 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 Gender Identity Not on file Sexual Orientation Not on file documented as of this encounter Plan of Treatment Not on file documented as of this encounter Procedures Procedure Name Priority Date/Time Associated Diagnosis Comments PROTIME-INR Routine 10/25/2020 5:18 AM RESPIRATORY TECHNICIAN documented in this encounter Results * (ABNORMAL) PROTIME-INR (10/25/2020 5:18 AM RESPIRATORY TECHNICIAN) PROTIME 34.3(H) 11.9 - 15.5 Seconds 10/25/2020 7:01 PM RESPIRATORY TECHNICIAN [facility] INR 3.3(H) 0.8 - 1.2 10/25/2020 7:01 PM RESPIRATORY TECHNICIAN [facility] Blood Collection / Unknown 10/25/2020 5:18 AM RESPIRATORY TECHNICIAN 10/25/2020 6:44 PM RESPIRATORY TECHNICIAN Narrative [facility] - 10/25/2020 7:01 PM RESPIRATORY TECHNICIAN Expected Values for INR: DVT/PE Goal [...] Peterson MD HEMATOLOGY ORDERABLES Maame smart Result [facility] [address] [place] [address] documented in this encounter Visit Diagnoses Not on filedocumented in this encounter Care Teams Diaper Folder Relationship Specialty Start Date End Date Sharan Gómez Jr., MD [address] [place] [phone] PCP - General 08/10/05 documented as of this encounter
--- OUTSIDE RECORDS SUMMARY | 2025-09-19 05:42 | XMS_ITS | Encounter Summary ---
Author Organization [facility] Address [address] [place] [address] Care Team Providers Care Charting Clerk Name Role Phone Rico Muñiz MD, Sharan Jaime Primary Care Provider Encounter Details Date Type Department Care Team (Latest Contact Info) Description 04/06/2000 Outpatient Historical [facility] Sharan Gómez Jr., MD [address] [place] [address] Symptomatic menopausal or female climacteric states (Primary Dx); Endocarditis, valve unspecified, unspecified cause; alf (current) use of anticoagulants Social History Tobacco Use Types Packs/Day Years Used Date Smoking Tobacco: Never Assessed Comments Unknown Sex and Gender Information Value Date Recorded Sex Assigned at Not on file 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
--- OUTSIDE RECORDS SUMMARY | 2025-09-19 05:42 | XMS_ITS | Encounter Summary ---
Author Organization 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 Social History Tobacco Use Types Packs/Day Years Used Date Smoking Tobacco: Never Assessed Comments Unknown Sex and Gender Information Value Date Recorded Sex Assigned at Not on file 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 Gender Identity Not on file Sexual Orientation Not on file documented as of this encounter Plan of Treatment Not on file documented as of this encounter Visit Diagnoses Diagnosis Obesity, unspecified- Primary Heart valve replaced by other means Unspecified essential hypertension [facility] (current) use of anticoagulants Long-term (current) use of anticoagulants documented in this encounter Care Teams Personal Lines Insurance Advisor Relationship Specialty Start Date End Date Sharan Gómez Jr., MD [address] [place] [phone] PCP - General 08/10/05 documented as of this encounter
--- OUTSIDE RECORDS SUMMARY | 2025-09-19 05:42 | XMS_ITS | Encounter Summary ---
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
--- OUTSIDE RECORDS SUMMARY | 2025-09-19 05:42 | XMS_ITS | Encounter Summary ---
Author Organization [facility] Address [address] [place] [address] Care Team Providers Care General Administrator Name Role Phone Rico Muñiz MD, Sharan Jaime Primary Care Provider Encounter Details Date Type Department Care Team (Late st Contact Info) Description 10/18/2020 Lab Requisition [facility] [address] [place] [address] Tabatha Lynn, [facility] [address] [place] [address] Social History Tobacco Use Types Packs/Day Years Used Date Smoking Tobacco: Never Assessed Comments Unknown Sex and Gender Information Value Date Recorded Sex Assigned at Not on file Legal Sex Female 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 Gender Identity Not on file Sexual Orientation Not on file documented as of this encounter Plan of Treatment Not on file documented as of this encounter Procedures Procedure Name Priority Date/Time Associated Diagnosis Comments PROTIME-INR Routine 10/18/2020 6:34 AM BUCKET HOOKER documented in this encounter Results * (ABNORMAL) PROTIME-INR (10/18/2020 6:34 AM BUCKET HOOKER) PROTIME 34.1(H) 11.9 - 15.5 Seconds 10/18/2020 5:19 PM BUCKET HOOKER [facility] INR 3.2(H) 0.8 - 1.2 10/18/2020 5:19 PM BUCKET HOOKER [facility] Blood Collection / Unknown 10/18/2020 6:34 AM BUCKET HOOKER 10/18/2020 4:57 PM BUCKET HOOKER Narrative [facility] - 10/18/2020 5:19 PM BUCKET HOOKER Expected Values for INR: DVT/PE Goal INR 2.5; range 2.0 - 3.0 Valve Replacement Tissue Goal INR 2.5; range 2.0 - 3.0 Valve Replacement Mechanical Goal INR 3.0; range 2.5 - 3.5 POST-NM Goal INR 2.5; range 2.0 - 3.0 or Goal INR 3.0; range 2.5 - 3.5 Atrial Fibrillation Goal INR 2.5; range 2.0 - 3.0 Ischemic Stroke Goal INR 2.5; range 2.0 - 3.0 For additional information see Guidelines for Anticoagulation available from the pharmacy Aspen Mitchell, Pharm D. Tabatha Neff MANAGER [employer] HEMATOLOGY ORDERABLES Final Result [facility] [address] [place] [address] documented in this encounter Visit Diagnoses Not on filedocumented in this encounter Care Teams General Administrator Relationship Specialty Start Date End Date Sharan Gómez Jr., MD [address] [place] [address] PCP - General 08/10/05 documented as of this encounter
--- OUTSIDE RECORDS SUMMARY | 2025-09-19 05:42 | XMS_ITS | Encounter Summary ---
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
--- OUTSIDE RECORDS SUMMARY | 2025-09-19 05:42 | XMS_ITS | Encounter Summary ---
Author Organization [facility] Address [address] [place] [address] Care Team Providers Care Fairing Man Name Role Phone Rico Muñiz MD, Sharan Jaime Primary Care Provider Encounter Details Date Type Department Care Team (Latest Contact Info) Description 05/18/1999 Outpatient Historical [facility] Sharan Gómez Jr., MD [address] [place] [address] Osteoarthrosis, unspecified whether generalized or localized, unspecified site (Primary Dx); shelter (current) use of anticoagulants; Heart valve replaced by other means Social History Tobacco Use Types Packs/Day Years Used Date Smoking Tobacco: Never Assessed Comments Unknown Sex and Gender Information Value Date Recorded Sex Assigned at Not on file Legal Sex Female 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 Gender Identity Not on file Sexual Orientation Not on file documented as of this encounter Plan of Treatment Not on file documented as of this encounter Visit Diagnoses Diagnosis Osteoarthrosis, unspecified whether generalized or localized, unspecified site- Primary exterminator helper (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
--- OUTSIDE RECORDS SUMMARY | 2025-09-19 05:42 | XMS_ITS | Encounter Summary ---
Author Organization [facility] Address [address] [place] [address] Care Team Providers Care Mattress Finisher Name Role Phone Rico Muñiz MD, Sharan Jaime Primary Care Provider Encounter Details Date Type Department Care Team (Latest Contact Info) Description 06/21/2000 Outpatient Historical [facility] Int Luis AFaisal [address] [place] [phone] Serge Arrington MD [address] [place] [address] Mitral valve disorder (Primary Dx); Unspecified essential hypertension; Unspecified gastritis and gastroduodenitis without mention of hemorrhage Social History Tobacco Use Types Packs/Day Years Used Date Smoking Tobacco: Never Assessed Comments Unknown Sex and Gender Information Value Date Recorded Sex Assigned at Not on file Legal Sex Female 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
--- OUTSIDE RECORDS SUMMARY | 2025-09-19 05:42 | XMS_ITS | Encounter Summary ---
Author Organization [facility] Address [address] [place] [address] Care Team Providers Care Client Technologies Analyst Name Role Phone Rico Muñiz MD, Sharan Jaime Primary Care Provider Encounter Details Date Type Department Care Team (Latest Contact Info) Description 07/18/1999 Outpatient Historical [facility] Sharan Gómez Jr., MD [address] [place] [address] Skin sensation disturb (Primary Dx); Headache(784.0); prison (current) use of anticoagulants Social History Tobacco Use Types Packs/Day Years Used Date Smoking Tobacco: Never Assessed Comments Unknown Sex and Gender Information Value Date Recorded Sex Assigned at Not on file Legal 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
--- OUTSIDE RECORDS SUMMARY | 2025-09-19 05:42 | XMS_ITS | Continuity of Care Document ---
Author Organization DAI [facility] Luis M, Keenan [facility] ([facility]) Address [address] [place] [address] Care Team Providers Care Claims Examiner Name Role Phone LYN MARMOLEJO Primary Care Provider [phone] Assessment No assessment recorded. Plan of Treatment Reminders Order Date Submit Date Provider Last Modified By Organization Details Last Modified Time Details Appointments None record ed. Lab PT/INR 025 09/17/20 [facility] ([facility]), [address] [place], [address], 13:36:28 Referral None record ed. Procedures None record ed. Surgeries None record ed. Imaging None record ed. Medication Orders None record ed. Patient TargetsNo targets recorded. Patient InstructionsNo instructions recorded. Reason for Referral None Reported. Results Created Date Observation Date Name Description Value Unit Range Abnormal Flag Note LastModifiedBy Organization Detail LastModifiedTime 08/17/2008/17/2025 CBC WBC 6.3 x10 4.0-10 .5 Not Available [facility] [address] [facility] [address], [place], [address], 08/17/2025 15:57:00 08/17/2008/17/2025 CBC RBC 3.45 x10 3.50-5 .50 low Not Available [facility] [address], [place], [address], 08/17/2025 15:57:00 08/17/2022 0808/17/2025 CBC HGB 12.4 g/dL 12.0-1 6.0 Not Available [facility] [address] [facility], [place], [address], 08/17/2025 15:57:00 08/17/20 25 08/17/2025 CBC HCT 37.7 % 37.0-4 7.0 Not Available [facility] [address] [facility], [place], [address], 08/17/2025 15:57:00 08/17/2008/17/2025 CBC MCV 109.2 fL 80.0-9 9.9 high Not Available [facility] [address] [facility], [place], [address], 08/17/2025 15:57:00 08/17/20 25 08/17/2025 CBC MCH 36.0 pg 27.0-3 2.0 high Not Available [facility] [address] [place] [facility] [address], [place], [address], 08/17/2025 15:57:00 08/17/20 25 08/17/2025 CBC MCHC 32.9 g/dL 32.0-3 6.0 Not Available [facility] [address] [place] [facility] [address], [place], [address], 08/17/2025 15:57:00 08/17/20 25 08/17/2025 CBC RDW 12.7 % 11.5-1 4.5 Not Available [facility] [address] [place] [facility] [address], [place], [address], 08/17/2025 15:57:00 08/17/2008/17/2025 CBC plt 239.0 x10 140.0- 451.0 Not Available [facility] [address] [facility], [place], [address], 08/17/2025 15:57:00 08/17/20 25 08/17/2025 CBC lymphocytes % 27.7 % 20.0-5 0.0 Not Available [facility] [address] [facility], [place], [address], 08/17/2025 15:57:00 08/17/20 25 08/17/2025 CBC granulcytes % 56.9 % 30.0-7 0.0 Not Available [facility] [address] [place] [facility] [address], [place], [address], 08/17/2025 15:57:00 08/17/20 25 08/17/2025 CBC monocytes % 10.1 % 2.0-16 .0 Not Available [facility] [address] [place] [facility], [place], [address], 08/17/2025 15:57:00 08/17/20 25 08/17/2025 CBC granulcytes# 3.6 x10 Not Cyndi ilable [facility] [address] [facility], [place], [address], 08/17/2025 15:57:00 08/17/20 25 08/17/2025 CBC lymphocytes # 1.8 x10 Not Available [facility] [address] [facility] [address], [place], [address], 08/17/2025 15:57:00 08/17/20 25 08/17/2025 CBC monocytes # 0.6 x10 Not Avai lable [facility] [address] [facility] [address], [place], [address], 08/17/2025 15:57:00 08/17/20 25 08/17/2025 TSH TSH 0.81 uIU/m L 0.49-3 .82 Not Available [facility] [address] [place] [facility] 1, [place], [address], 08/17/2025 16:04:05 08/17/20 25 08/18/2025 PERIP HERAL BLOOD SMEAR REVIE W peripheral blood smear review Macro cytos is 1 + Ovalo cytes 1 + Polyc hroma mikhail 1 + Revie w of the perip heral smear revea ls adequ ate numbe rs of plate lets. Revie w of perip heral smear confi jace autom ated resul ts. Not Available [facility] [address] [place], [address], 08/18/2025 15:11:08 08/17/20 25 08/19/2025 METHY LMALO [...] : 63-24 1 nmol/ L Not Available [facility] [address] [place], [address], 08/20/2025 00:38:15 08/17/2008/19/2025 METHY LMALO SE ACID [...] cteri stics have been deter mined by [facility]. It has not been clear ed or appro shiela by the FDA. This assay has been valid ated pursu ant to the CLIA regul ation s and is used for clini luisito purpo ses. Not Available [facility] [place] [address] [place], [address], 08/20/2025 00:38:15 08/17/2008/19/2025 PROTE IN, TOTAL AND PROTE IN ELECT ROPHO RESIS W/ REFL [place] protein, total 7.1 g/dL 6.1-8. 1 normal Not Available [facility] [address] [place] [address] [place], [address], 08/20/2025 00:38:16 08/17/2008/19/2025 PROTE IN, TOTAL AND PROTE IN ELECT ROPHO RESIS W/ REFL [place] albumin 4.5 g/dL 3.8-4. 8 normal Not Available [facility] [place] [address] [place], [address], 08/20/2025 00:38:16 08/17/2008/19/2025 PROTE IN, TOTAL AND PROTE IN ELECT ROPHO RESIS W/ REFL [place] alpha 1 globulin 0.3 g/dL 0.2-0. 3 normal Not Available [address], [address], 08/20/2025 00:38:16 08/17/20 25 08/19/2025 PROTE IN, TOTAL AND PROTE IN ELECT ROPHO RESIS W/ REFL [place] alpha 2 globulin 0.5 g/dL 0.5-0. 9 normal Not Available [address], [address], 08/20/2025 00:38:16 08/17/2008/19/2025 PROTE IN, TOTAL AND PROTE IN ELECT ROPHO RESIS W/ REFL [place] beta 1 globulin 0.4 g/dL 0.4-0. 6 normal Not Available [address], [address], 08/20/2025 00:38:16 08/17/20 25 08/19/2025 PROTE IN, TOTAL AND PROTE IN ELECT ROPHO RESIS W/ REFL [place] beta 2 globulin 0.3 g/dL 0.2-0. 5 normal Not Available [address], [address], 08/20/2025 00:38:16 08/17/20 25 08/19/2025 PROTE IN, TOTAL AND PROTE IN ELECT ROPHO RESIS W/ REFL [place] gamma globulin 1.1 g/dL 0.8-1. 7 normal Not Available [address], [address], 08/20/2025 00:38:16 08/17/2008/19/2025 PROTE IN, TOTAL AND PROTE IN ELECT ROPHO RESIS W/ REFL [place] interpretati on No restr icted band (M-sp mera) seen. Not Available [address], [address], 08/20/2025 00:38:16 08/17/20 25 08/19/2025 PTH, INTAC [...] or Low Joie l High Not Available [address], [address], 08/20/2025 00:38:16 08/17/20 25 08/19/2025 PTH, INTAC T (ICMA ) AND IONIZ ED CALCI UM calcium 10.2 mg/dL 8.6-10 .4 normal Not Available [address], [address], 08/20/2025 00:38:16 08/17/20 25 08/19/2025 PTH, INTAC T (ICMA ) AND IONIZ ED CALCI UM calcium, ionized 5.6 mg/dL 4.7-5. 5 high Not Available [facility] [address], [address], 08/20/2025 00:38:16 08/17/20 25 08/19/2025 T4, FREE T4, free 1.9 NG/dL 0.8-1. 8 high Not Available [facility] [address], [address], 08/20/2025 00:38:17 08/17/20 25 08/19/2025 VITAM IN B12 vitamin B12 >2000 pg/mL 200-11 00 high Not Available [facility] [address] [place], [address], 08/20/2025 00:38:18 08/17/2008/17/2025 PT/IN R Protime 21.5 Not Available [facility] ([facility]) [address] [place], [address], 08/17/2025 14:33:48 08/17/20 25 08/17/2025 PT/IN R INR 1.8 Not Available [facility] ([facility]) [address] [place] [address], [address], 08/17/2025 14:33:48 09/02/20 25 09/02/2025 PT/IN R Protime 29.0 Not Available [facility] ([facility]) [address] [place] [address], [address], 09/02/2025 13:17:30 09/02/20 25 09/02/2025 PT/IN R INR 2.4 Not Available [facility] ([facility]) [address] [place] [address], [address], 09/02/2025 13:17:30 09/09/20 25 09/09/2025 CMP (FEMA LE) glucose 93.0 mg/dL 60.0-9 9.0 Not Available [address], [address], 09/09/2025 10:43:31 09/09/20 25 09/09/2025 CMP (FEMA LE) BUN (blood urea nitrogen) 20.0 mg/dL 10.0-2 6.0 Not Available [facility] [address] [place] [address] [place], [address], 09/09/2025 10:43:31 09/09/20 25 09/09/2025 CMP (FEMA LE) creatinine (serum) 0.9 mg/dL 0.4-1. 5 Not Available [facility] [address] [facility] 1, [place], [address], 09/09/2025 10:43:31 09/09/20 25 09/09/2025 CMP (FEMA LE) BUN/creatini ne ratio 22.22 ratio Not Available [facility] [address] [facility] 1, [place], [address], 09/09/2025 10:43:31 09/09/20 25 09/09/2025 CMP (FEMA LE) eGFR calculated 64.9 Not Available [facility] [address] [facility] 1, [place], [address], 09/09/2025 10:43:31 09/09/20 25 09/09/2025 CMP (FEMA LE) total protein 7.5 g/dL 6.0-8. 5 Not Available [facility] [address] [facility], [place], [address], 09/09/2025 10:43:31 09/09/20 25 09/09/2025 CMP (FEMA LE) total bilirubin 1.1 mg/dL 0.2-1. 3 Not Available [facility] [address] [place] [facility], [place], [address], 09/09/2025 10:43:31 09/09/20 25 09/09/2025 CMP (FEMA LE) albumin 5.0 g/dL 3.5-5. 5 Not Available [facility] [address] [place] [facility], [place], [address], 09/09/2025 10:43:31 09/09/20 25 09/09/2025 CMP (FEMA LE) globulin 2.5 calc Not Available [facility] [address] [place] [facility], [place], [address], 09/09/2025 10:43:31 09/09/20 25 09/09/2025 CMP (FEMA LE) AST (SGOT) 35.0 U/L 0.0-46 .0 Not Available [facility] [address] [facility], [place], [address], 09/09/2025 10:43:31 09/09/20 25 09/09/2025 CMP (FEMA LE) altv (SGPT) 17.0 U/L 13.0-6 9.0 normal Not Available [facility] [address] [facility], [place], [address], 09/09/2025 10:43:31 09/09/20 25 09/09/2025 CMP (FEMA LE) A/G ratio 2.0 ratio Not Available [facility] [address] [facility], [place], [address], 09/09/2025 10:43:31 09/09/20 25 09/09/2025 CMP (FEMA LE) ALP phos 77.0 U/L 30.0-1 40.0 normal Not Available [facility] [address] [place] [facility], [place], [address], 09/09/2025 10:43:31 09/09/20 25 09/09/2025 CMP (FEMA LE) calcium 10.4 mg/dL 8.4-10 .5 Not Available [facility] [address] [facility] [address], [place], [address], 09/09/2025 10:43:31 09/09/20 25 09/09/2025 CMP (FEMA LE) sodium 139.0 mmol/ L 136.0- 145.0 Not Available [facility] [address] [facility], [place], [address], 09/09/2025 10:43:31 09/09/20 09/09/2025 CMP (FEMA LE) potassium 4.2 mmol/ L 3.5-5. 1 Not Available [facility] [address] [facility], [place], [address], 09/09/2025 10:43:31 09/09/20 25 09/09/2025 CMP (FEMA LE) chloride 105.0 mmol/ L 98.0-1 10.0 normal Not Available [facility] [address] [facility], [place], [address], 09/09/2025 10:43:31 09/09/20 25 09/09/2025 CMP (FEMA LE) C02 28.0 mmol/ L 22.0-3 1.0 Not Available [facility] [address] [facility], [place], [address], 09/09/2025 10:43:31 09/09/20 25 09/09/2025 CMP (FEMA LE) anion gap 6.0 calc Not Available [facility] [address] [facility], [place], [address], 09/09/2025 10:43:31 09/09/20 25 09/09/2025 CMP (FEMA LE) osmolality 289.3 calc Not Available [facility] [address] [facility], [place], [address], 09/09/2025 10:43:31 09/17/20 25 09/17/2025 PT/IN R Protime 27.5 Not Available [facility] ([facility]) [address] [place] [address], [address], 09/17/2025 13:23:29 09/17/20 25 09/17/2025 PT/IN R INR 2.3 Not Available [facility] ([facility]) [address] [place] [address], [address], 09/17/2025 13:23:29 09/09/20 25 09/08/2025 US, echoc ardio gram, trans thora cic, compl ete, w/ color flow No observ ation record ed. QUENTIN [facility] [address] [place], [address], 09/11/2025 09:19:21 09/15/2009/15/2025 MAMMO , scree ilya, digit al, bilat eral No observ ation record ed. [email or web address] [place] [address] [address] [place] [facility] [place], [address], 09/16/2025 16:09:54 Result Notes None recorded. Problems Name Problem SNOMED Code Status Onset Date Resolution Date Notes Provider Name and Address Organization Details Recorded Time Depressi ve disorder 72449554 Completed 202010/14/2021 Depressi on - Status is Inactive ; 10/14/20 11:08AM by Maryellen Marmolejo PA-C, Annotati on/Adden dum; Promoted ; acuity set as *; FELISHA hamilton, [facility] 5 07:56:57 Herpes zoster 0963871 Completed 202201/02/2025 SHINGLES FELISHA hamilton, [facility], L.LJosueCJosue 5 07:56:03 Dysthymi a 32951708 Active 2022 DEPRESSI ON WITH ANXIETY FELISHA hamilton, [facility], [facility] 5 07:55:28 Benign essentia l hyperten jovanni 7282938 Active 2022 FELISHA hamilton, [facility] 5 07:55:28 Gastroes ophageal reflux disease 224847432 Active 2022 FELISHA hamilton [facility] 5 07:55:28 Fracture of upper end of humerus 006711294 Completed 202201/02/2025 CLOSED FRACTURE OF PROXIMAL END OF RIGHT HUMERUS, SEQUELA FELISHA hamilton, [facility] 5 07:56:03 History of weather strip mechanic al prosthet ic mitral valve replacem ent 466657091 Active 2022 FELISHA hamilton, [facility] 5 07:56:22 Atrial fibrilla tion 61083097 Active 2022 FELISHA hamilton, [facility] 3 14:45:05 Coronary atherosc lerosis 940428260 Active 2022 bare metal stents to circ and LAD 2011 FELISHA hamilton [facility] 3 14:46:30 Iron deficien cy anemia 68875791 Active 2022 FELISHA hamilton, [facility] 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 3 14:45:59 Anxiety 00463900 Active 2022 FELISHA hamilton [facility] 3 14:46:54 Viral hepatiti s C 15779748 Active 2022 FELISHA hamilton [facility] 5 07:55:28 Moderate recurren t major depressi on 82216516 Active 2023 FELISHA hamilton [facility] 5 07:55:28 Need for personal care assistan ce 32852375957 012534 Active 2023 FELISHA hamilton, [facility] 5 07:55:28 Frail elderly 033032136 Active 2023 FELISHA DESIR null, [facility] 5 07:55:28 Seasonal allergic rhinitis 829229326 Active 2023 FELISHA DESIR null, [facility] 5 07:55:28 Chronic pain 78201732 Active 2023 FELISHA DESIR null, [facility] 5 07:55:28 Dementia 99138642 Active 2023 FELISHA DESIR null, [facility] 5 07:55:28 Constipa tion 76310351 Active 2023 FELISHA DESIR null, [facility] 5 07:55:44 Hyperlip idemia 33671512 Active 2024 FELISHA DESIR null, [facility] 5 07:59:38 Occult blood detected in feces 36462858 Active 2024 FELISHA DESIR null, [facility] 5 09:13:35 Mean corpuscu lar volume above referenc e range 699872477 Active 2024 FELISHA DESIR null, [facility] 5 09:14:07 Hypercal cemia 94907117 Active 2024 FELISHA DESIR null, [facility] 5 10:07:49 Vitamin D deficien cy 73097625 Active 2024 Lyn Marmolejo MD [address] [place] [address], [phone], [facility] 5 12:54:55 Hyperpar athyroid ism 71701932 Active 2024 Lyn Marmolejo MD [address] [place], [address], [facility], Diane.LJosueCJosue 5 12:54:56 Dysuria 98769276 Active 2024 Dotty Celis null, [facility] 5 14:08:08 Problem Notes None recorded. Procedures Surgical History Date Name Laterality Status Provider Name and Address Organization Details Recorded Time 2024 Most Recent Mammogram completed FELISHA [facility] 5 16:09:39 2024 esophagogastroduodenoscopy completed YANELIS WELSH [facility], L.L[facility] 5 12:23:16 2024 colonoscopy completed [facility], L[facility] 5 10:20:11 2023 esophagogastroduodenoscopy completed KIARA DUCKWORTH [facility] L[facility] 4 12:40:14 2023 colonoscopy completed Lyn Marmolejo MD [address] [place], [address], [facility], L.L.CJosue 5 10:19:30 [address] FELISHA [facility] 3 14:48:40 replacement of mitral valve complete d FELISHA [facility], LJosueL.CJosue 3 14:49:[address] [facility], L[facility] 3 15:14:43 Imaging Results None recorded. Procedure Notes None recorded. Medical Equipment None Reported. Allergies Allergen ID Allergen Name Allergen Category Reaction Reaction Severity Criticality Documentation Date Start Date Code Code System Note Provider Name and Address Organization Details Recorded Time 1376 morphine medicatio n Not available Not available Not available 02/07/2023 7052 RxNorm [facility] 3 10:45:47 1377 diltiazem Not available Not available Not available Not available 02/07/2023 3443 RxNorm Dotty [facility] 3 10:45:54 4552 Bactrim medicatio n other severe high 04/17/2023 54213 9 RxNorm do not give d/t couma din Lola [facility], L.L.CJosue 4 13:34:33 73952 diltiazem hydrochlo ride medicatio n Not available Not available Not available 05/26/202340619 1 RxNorm Comme nt: Recor ded 12/29 7:56A M by Yanelis Kitchen on, 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, 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 ; Promo talib; Signi fican ce: *; Reaso n: Drug aller gy; ; [facility] 3 12:26:44 69107 morphine sulfate medicatio n Not available Not available Not available 05/26/2023 90359 RxNorm Comme nt: Recor ded 12/29 7:56A M by Yanelis Kitchen on, 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 04/17/2023 14:48:01 What Was The Date Of Your Most Recent Tobacco Screening? 05/27/2025 [email or web address] Information not available 05/27/2025 Sex: Unknown Functional Status Question Answer Note LastModified by Organizat ion Details LastModified Time Do you use any illicit or recreational drugs? No [email or web address] Information not available 04/17/2023 Do you or have you ever used any other forms of tobacco or nicotine? No [email or web address] Information not available 06/29/2023 What is your level of alcohol consumption? None Information not available 04/17/2023 Mental Status None recorded. Family History Relationship Description Onset Age of this Age Resolved Age Notes LastModified by Organization Details LastModified Time Unspecified Relation Coronary atherosclero sis [email or web address] Not available 06/29 15:13:48 Medical History No medical history recorded. Gynecological History Statement/Question Response Most Recent Mammogram 09/15/2025 Obstetrics History GPAL:G 0 P 0 0 0 0 Immunizations Vaccine Type Date Status Note Provider Nam e and Address Organization Details Recorded Time Influenza, MDCK, quadrivalent, PF 2 completed FELISHA hamilton [facility] 10/10/2024 08:38:58 COVID-19, mRNA, LNP-S, PF, 100 mcg/0.5mL dose or 50 mcg/0.25mL dose 1 completed FELISHA hamilton [facility] 10/10/2024 08:38:58 COVID-19, mRNA, LNP-S, PF, 100 mcg/0.5mL dose or 50 mcg/0.25mL dose 1 completed FELISHA hamilton [facility] 10/10/2024 08:38:58 COVID-19, mRNA, LNP-S, PF, 100 mcg/0.5mL dose or 50 mcg/0.25mL dose 2 completed FELISHA hamilton, [facility] 10/10/2024 08:38:58 Pneumococcal conjugate PCV20, polysaccharide [id number] conjugate, adjuvant, PF 3 completed FELISHA hamilton, [facility] 10/10/2024 08:38:58 COVID-19, mRNA, LNP-S, bivalent, PF, 50 mcg/0.5 mL or 25mcg/0.25 mL dose 3 completed FELISHA hamilton, [facility] 10/10/2024 08:38:58 pneumococcal polysaccharide PPV23 3 completed FELISHA hamilton, [facility] 04/17/2023 12:02:00 Tdap 1 completed FELISHA hamilton, [facility] 10/10/2024 08:38:58 Influenza, split virus, trivalent, PF 3 [facility] 04/17/2023 12:02:00 influenza, split (incl. purified surface antigen) 0 completed FELISHA hamilton, [facility] 04/17/2023 12:02:00 Hep A, adult 1 completed FELISHA hamilton, [facility] 10/10/2024 08:38:58 Hep A, adult 9 [facility] 10/10/2024 08:38:58 Influenza, split virus, quadrivalent, PF 1 completed FELISHA DESIR null, [facility] 10/10/2024 08:38:58 Influenza, split virus, quadrivalent, PF 9 completed FELISHA DESIR null, [facility] 10/10/2024 08:38:58 Influenza, MDCK, trivalent, PF 4 completed FELISHA DESIR null, [facility] 10/10/2024 08:38:58 Influenza, MDCK, quadrivalent, preservative 3 completed FELISHA DESIR null, [facility] 10/10/2024 08:38:58 pneumococcal polysaccharide PPV23 8 completed Lola hamiltno, [facility] 07/02/2024 08:41:52 Influenza, split virus, quadrivalent, PF 8 completed Lola Vidal null, [facility] 07/02/2024 08:41:52 zoster recombinant 3 completed Lola hamilton, [facility] 07/02/2024 14:52:40 COVID-19, mRNA, LNP-S, PF, 50 mcg/0.5 mL 4 completed FELISHA hamilton, [facility] 10/10/2024 08:38:58 Influenza, MDCK, trivalent, preservative 4 completed FELISHA DESIR null, [facility] 10/10/2024 08:38:58 Past Encounters Encounter ID Performer Location Encounter Start Date Encounter Closed Date Diagnosis/Indication Diagnosis SNOMED-CT Code Diagnosis ICD10 Code Diagnosis IMO Codes Diagnosis Note [id number] Lyn Marmolejo MD [facility] ([facility]) [address] [place] [phone] 08/17/2025 13:17:17 08/18/2025 09:51:22 History of mechanical prosthetic mitral valve replacement 381526313 Z95.2 Mean corpu scular volume above reference range 930890819 R71.8 768438 Hypercalcemia 42552002 E 83.52 9955 Drug therapy finding 309 943639 Z79.899 [id number] Generalize d anxiety disorder [id number] F41.1 [id number] Lyn Marmolejo MD [facility] ([facility]) [address] [place] [address] [phone] 5 09/02/2025 13:16:47 09/03/2025 10:16:00 History of mechanical prosthetic mitral valve replacement [id number] Z95.2 [id number] Lyn Marmolejo MD [facility]) [address] [place] [address] [phone] 5 09/09/2025 09:58:14 09/10/2025 09:52:18 Benign essential hypertension [id number] Lyn Marmolejo MD [facility]) [address] [place] [address] [phone] 5 09/17/2025 13:22:57 09/18/2025 10:36:49 Atrial fibrillation [id number] I48.91 warfarin therapyd/c naproxen d/t hx of bleeding Health Concerns Section Related Observation LastModified by Organization Detai ls LastModified Time None Recorded Concern Status LastModified by Organization Details LastModified Time None Recorded Payers Encounter Date Sequence Insurance Name Policy Number Policy Hernandez Covered Member ID Hernandez Member ID Guarantor Name 09/17/2025 1 [id number] - [place]PO) [id number] Odilia Ulloa [id number] Odilia Ulloa 09/17/2025 2 [place] Odilia Ulloa [id number] Odilia Ulloa OBGyn Episode No OBEpisode recorded.
--- OUTSIDE RECORDS SUMMARY | 2025-09-19 05:42 | XMS_ITS | Encounter Summary ---
Author Organization [facility] Address [address] [place] [address] Care Team Providers Care Teacher Of The Sight Impaired Name Role Phone Rico Muñiz MD, Sharan Jaime Primary Care Provider Encounter Details Date Type Department Care Team (Latest Contact Info) Description 12/26/1999 Outpatient Historical [facility] Sharan Gómez Jr., MD [address] [place] [address] ASCVD (Primary Dx); Esophageal reflux; Unspecified essential hypertension; group home (current) use of anticoagulants Social History Tobacco Use Types Packs/Day Years Used Date Smoking Tobacco: Never Assessed Comments Unknown Sex and Gender Information Value Date Recorded Sex Assigned at Not on file 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 Gender Identity Not on file Sexual Orientation Not on file documented as of this encounter Plan of Treatment Not on file documented as of this encounter Visit Diagnoses Diagnosis ASCVD- Primary Unspecified cardiovascular disease Esophageal reflux Unspecified essential hypertension 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
--- OUTSIDE RECORDS SUMMARY | 2025-09-19 05:42 | XMS_ITS | Encounter Summary ---
Author Organization [facility] Address [address] [place] [address] Care Team Providers Care Correctional Case Records Supervisor Name Role Phone Rico Muñiz MD, Sharan Jaime Primary Care Provider Encounter Details Date Type Department Care Team (Latest Contact Info) Description 11/09/2000 Outpatient Historical [facility] Sharan Gómez Jr., MD [address] [place] [address] Unspecified essential hypertension (Primary Dx); Pure hypercholesterolem; Endocarditis, valve unspecified, unspecified cause; ad terminal makeup operator (current) use of anticoagulants Social History Tobacco Use Types Packs/Day Years Used Date Smoking Tobacco: Never Assessed Comments Unknown Sex and Gender Information Value Date Recorded Sex Assigned at Not on file 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 Gender Identity Not on file Sexual Orientation Not on file documented as of this encounter Plan of Treatment Not on file documented as of this encounter Visit Diagnoses Diagnosis Unspecified essential hypertension- Primary Pure hypercholesterolem Pure hypercholesterolemia Endocarditis, valve unspecified, unspecified cause ad terminal makeup operator (current) use of anticoagulants Long-term (current) use of anticoagulants documented in this encounter Care Teams Correctional Case Records Supervisor Relationship Specialty Start Date End Date Sharan Gómez Jr., MD [address] [place] [phone] PCP - General 08/10/05 documented as of this encounter
--- OUTSIDE RECORDS SUMMARY | 2025-09-19 05:42 | XMS_ITS | Encounter Summary ---
Author Organization [facility] Address [address] [place] [address] Care Team Providers Care Gravity Flow Irrigator Name Role Phone Rico Muñiz MD, Sharan Jaime Primary Care Provider Encounter Details Date Type Department Care Team (Latest Contact Info) Description 01/04/2001 Outpatient Historical [facility] Sharan Gómez Jr., MD [address] [place] [address] Acute upper respiratory infections of unspecified site (Primary Dx); long term (current) use of anticoagulants Social History Tobacco Use Types Packs/Day Years Used Date Smoking Tobacco: Never Assessed Comments Unknown Sex and Gender Information Value Date Recorded Sex Assigned at Not on file Legal Sex Female 5:42 AM SOLAR THERMAL 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
--- OUTSIDE RECORDS SUMMARY | 2025-09-19 05:42 | XMS_ITS | Encounter Summary ---
Author Organization [facility] Address [address] [place] [address] Care Team Providers Care Head Of It Name Role Phone Rico Muñiz MD, Sharan Jaime Primary Care Provider Encounter Details Date Type Department Care Team (Latest Contact Info) Description 04/01/1999 Outpatient Historical [facility] Sharan Gómez Jr., MD [address] [place] [address] Type II or unspecified type diabetes mellitus without mention of complication, not stated as uncontrolled (Primary Dx); Dietary surveil/developmental training counselor Social History Tobacco Use Types Packs/Day Years Used Date Smoking Tobacco: Never Assessed Comments Unknown Sex and Gender Information Value Date Recorded Sex Assigned at Not on file Legal Sex Female 5:42 AM CARRIER WASHER Gender Identity Not on file Sexual Orientation Not on file documented as of this encounter Plan of Treatment Not on file documented as of this encounter Visit Diagnoses Diagnosis Type II or unspecified type diabetes mellitus without mention of complication, not stated as uncontrolled- Primary Dietary surveil/developmental training counselor Dietary surveillance and counseling documented in this encounter Care Teams Head Of It Relationship Specialty Start Date End Date Sharan Gómez Jr., MD [address] [place] [phone] PCP - General 08/10/05 documented as of this encounter
--- OUTSIDE RECORDS SUMMARY | 2025-09-19 05:42 | XMS_ITS | Encounter Summary ---
Author Organization [facility] Address [address] [place] [address] Care Team Providers Care Local Superintendent Name Role Phone Rico Muñiz MD, Sharan Jaime Primary Care Provider Encounter Details Date Type Department Care Team (Latest Contact Info) Description 10/01/2000 Outpatient Historical [facility] Sharan Gómez Jr., MD [address] [place] [address] Endocarditis, valve unspecified, unspecified cause (Primary Dx); Other and unspecified hyperlipidemia; Osteoarthrosis, unspecified whether generalized or localized, unspecified site Social History Tobacco Use Types Packs/Day Years Used Date Smoking Tobacco: Never Assessed Comments Unknown Sex and Gender Information Value Date Recorded Sex Assigned at Not on file Legal Sex Female 5:42 AM PHOTO OPTICS TECHNICIAN Gender Identity Not on file Sexual Orientation Not on file documented as of this encounter Plan of Treatment Not on file documented as of this encounter Visit Diagnoses Diagnosis Endocarditis, valve unspecified, unspecified cause- Primary Other and unspecified hyperlipidemia Osteoarthrosis, unspecified whether generalized or localized, unspecified site documented in this encounter Care Teams Local Superintendent Relationship Specialty Start Date End Date Sharan Gómez Jr., MD [address] [place] [phone] PCP - General 08/10/05 documented as of this encounter
--- OUTSIDE RECORDS SUMMARY | 2025-09-19 05:42 | XMS_ITS | Encounter Summary ---
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 Social History Tobacco Use Types Packs/Day Years Used Date Smoking Tobacco: Never Assessed Comments Unknown Sex and Gender Information Value Date Recorded Sex Assigned at Not on file Legal Sex Female 5:42 AM EMBRYOLOGY PROFESSOR Gender Identity Not on file Sexual Orientation Not on file documented as of this encounter Plan of Treatment Not on file documented as of this encounter Visit Diagnoses Diagnosis Osteoarthrosis, unspecified whether generalized or localized, unspecified site- Primary Heart valve replaced by other means penitentiary (current) use of anticoagulants Long-term (current) use of anticoagulants documented in this encounter Care Teams Memorial Mason Relationship Specialty Start Date End Date Sharan Gómez Jr., MD [address] [place] [address] PCP - General 08/10/05 documented as of this encounter
--- OUTSIDE RECORDS SUMMARY | 2025-09-19 05:42 | XMS_ITS | Encounter Summary ---
Author Organization [facility] Address [address] [place] [address] Care Team Providers Care Metal Machine Operator Name Role Phone Rico Muñiz MD, Sharan Jaime Primary Care Provider Encounter Details Date Type Department Care Team (Latest Contact Info) Description 02/29/2000 Outpatient Historical [facility] Sharan Gómez Jr., MD [address] [place] [address] Pure hypercholesterolem (Primary Dx); Heart valve replaced by other means; Osteoporosis, unspecified; termite treater (current) use of anticoagulants Social History Tobacco Use Types Packs/Day Years Used Date Smoking Tobacco: Never Assessed Comments Unknown Sex and Gender Information Value Date Recorded Sex Assigned at Not on file Legal Sex Female 5:42 AM RESILIENT TILE INSTALLER Gender Identity Not on file Sexual Orientation Not on file documented as of this encounter Plan of Treatment Not on file documented as of this encounter Visit Diagnoses Diagnosis Pure hypercholesterolem- Primary Pure hypercholesterolemia Heart valve replaced by other means Osteoporosis, unspecified custodial (current) use of anticoagulants Long-term (current) use of anticoagulants documented in this encounter Care Teams Metal Machine Operator Relationship Specialty Start Date End Date Sharan Gómez Jr., MD [address] [place] [phone] PCP - General 08/10/05 documented as of this encounter
--- OUTSIDE RECORDS SUMMARY | 2025-09-19 05:42 | XMS_ITS | Encounter Summary ---
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 Social History Tobacco Use Types Packs/Day Years Used Date Smoking Tobacco: Never Assessed Comments Unknown Sex and Gender Information Value Date Recorded Sex Assigned at Not on file Legal Sex Female 5:42 AM CAREER MANAGER Gender Identity Not on file Sexual Orientation Not on file documented as of this encounter Plan of Treatment Not on file documented as of this encounter Visit Diagnoses Diagnosis Endocarditis, valve unspecified, unspecified cause- Primary correction (current) use of anticoagulants Long-term (current) use of anticoagulants documented in this encounter Care Teams Bonding Machine Setter Relationship Specialty Start Date End Date Sharan Gómez Jr., MD [address] [place] [address] PCP - General 08/10/05 documented as of this encounter
--- OUTSIDE RECORDS SUMMARY | 2025-09-19 05:42 | XMS_ITS | Encounter Summary ---
Author Organization [facility] Address [address] [place] [address] Care Team Providers Care X Ray Electronics Wireman Name Role Phone Rico Muñiz MD, Sharan Jaime Primary Care Provider Encounter Details Date Type Department Care Team (Latest Contact Info) Description 12/21/2000 Outpatient Historical [facility] Sharan Gómez Jr., MD [address] [place] [address] Pure hypercholesterolem (Primary Dx); Other and unspecified hyperlipidemia; Esophageal reflux; correction (current) use of anticoagulants Social History Tobacco Use Types Packs/Day Years Used Date Smoking Tobacco: Never Assessed Comments Unknown Sex and Gender Information Value Date Recorded Sex Assigned at Not on file Legal Sex Female 5:42 AM GENERAL INTERNIST AND PHYSICIAN LEADER Gender Identity Not on file Sexual Orientation Not on file documented as of this encounter Plan of Treatment Not on file documented as of this encounter Visit Diagnoses Diagnosis Pure hypercholesterolem- Primary Pure hypercholesterolemia Other and unspecified hyperlipidemia Esophageal reflux correction (current) use of anticoagulants Long-term (current) use of anticoagulants documented in this encounter Care Teams X [employer] Wireman Relationship Specialty Start Date End Date Sharan Gómez Jr., MD [address] [place] [address] PCP - General 08/10/05 documented as of this encounter
--- OUTSIDE RECORDS SUMMARY | 2025-09-19 05:42 | XMS_ITS | Encounter Summary ---
Author Organization [facility] Address [address] [place] [address] Care Team Providers Care [employer] Compliance Internship Name Role Phone Rico Muñiz MD, Sharan Jaime Primary Care Provider Encounter Details Date Type Department Care Team (Latest Contact Info) Description 10/10/1999 Outpatient Historical [facility] Sharan Gómez Jr., MD [address] [place] [address] Unspecified circulatory system disorder (Primary Dx); Unspecified essential hypertension; group home (current) use of anticoagulants Social History Tobacco Use Types Packs/Day Years Used Date Smoking Tobacco: Never Assessed Comments Unknown Sex and Gender Information Value Date Recorded Sex Assigned at Not on file Legal Sex Female 5:42 AM CUT IN WORKER Gender Identity Not on file Sexual Orientation Not on file documented as of this encounter Plan of Treatment Not on file documented as of this encounter Visit Diagnoses Diagnosis Unspecified circulatory system disorder- Primary Unspecified essential hypertension buttermilk 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
--- OUTSIDE RECORDS SUMMARY | 2025-09-19 05:42 | XMS_ITS | Encounter Summary ---
Author Organization [facility] Address [address] [facility] Attn: [place] [address] Care Team Providers Care Clerk Guide Name Role Phone Rico Muñiz MD, Sharan Jaime Primary Care Provider Encounter Details Date Type Department Care Team (Late st Contact Info) Description 01/04/2001 Outpatient Historical Sharan Gómez Jr., MD [address] [place] [address] Social History Tobacco Use Types Packs/Day Years Used Date Smoking Tobacco: Never Assessed Comments Unknown Sex and Gender Information Value Date Recorded Sex Assigned at Not on file Legal Sex Female 5:42 AM SOCIAL MEDIA MANAGER Gender Identity Not on file Sexual Orientation Not on file documented as of this encounter Plan of Treatment Not on file documented as of this encounter Visit Diagnoses Not on filedocumented in this encounter Care Teams Clerk Guide Relationship Specialty Start Date End Date Sharan Gómez Jr., MD [address] [place] [address] PCP - General 08/10/05 documented as of this encounter
--- OUTSIDE RECORDS SUMMARY | 2025-09-19 05:42 | XMS_ITS | Encounter Summary ---
Author Organization [facility] Address [address] [place] [address] Care Team Providers Care Preschool Teacher Aide Name Role Phone Rico Muñiz MD, Sharan Jaime Primary Care Provider Encounter Details Date Type Department Care Team (Latest Contact Info) Description 10/26/1999 Outpatient Historical [facility] Sharan Gmóez Jr., MD [address] [place] [address] Endocarditis, valve unspecified, unspecified cause (Primary Dx); Osteoporosis, unspecified Social History Tobacco Use Types Packs/Day Years Used Date Smoking Tobacco: Never Assessed Comments Unknown Sex and Gender Information Value Date Recorded Sex Assigned at Not on file Legal Sex Female 5:42 AM FOXING CLOSER Gender Identity Not on file Sexual Orientation Not on file documented as of this encounter Plan of Treatment Not on file documented as of this encounter Visit Diagnoses Diagnosis Endocarditis, valve unspecified, unspecified cause- Primary Osteoporosis, unspecified documented in this encounter Care Teams Preschool Teacher Aide Relationship Specialty Start Date End Date Sharan Gómez Jr., MD [address] [place] [address] PCP - General 08/10/05 documented as of this encounter
--- OUTSIDE RECORDS SUMMARY | 2025-09-19 05:42 | XMS_ITS | Encounter Summary ---
Author Organization [facility] Address [address] [place] [address] Care Team Providers Care Chemical Engineering Professor Name Role Phone Rico Muñiz MD, Sharan Jaime Primary Care Provider Encounter Details Date Type Department Care Team (Latest Contact Info) Description 08/10/2005 Outpatient Historical [facility]- [place] [address] [facility] [address] [place] [address] Bill Negron MD [address] [place] [address] ABN FIND-STOOL CONTENTS-OCC BLOOD (Primary Dx); INT HEMORRHOID W/O COMPL; ANAL FISSURE Social History Tobacco Use Types Packs/Day Years Used Date Smoking Tobacco: Never Assessed Comments Unknown Sex and Gender Information Value Date Recorded Sex Assigned at Not on file Legal Sex Female 5:42 AM TELEPHONER Gender Identity Not on file Sexual Orientation Not on file documented as of this encounter Plan of Treatment Not on file documented as of this encounter Visit Diagnoses Diagnosis Nonspecific abnormal finding in stool contents- Primary Internal hemorrhoids without mention of complication Anal fissure documented in this encounter Care Teams Chemical Engineering Professor Relationship Specialty Start Date End Date Sharan Gómez Jr., MD [address] [place] [phone] PCP - General 08/10/05 documented as of this encounter
--- OUTSIDE RECORDS SUMMARY | 2025-09-19 05:42 | XMS_ITS | Encounter Summary ---
Author Organization [facility] Address [address] [place] [address] Care Team Providers Care Principal Hardware Architect Name Role Phone Rico Muñiz MD, Sharan Jaime Primary Care Provider Encounter Details Date Type Department Care Team (Latest Contact Info) Description 12/31/2000 Outpatient Historical [facility] Medicine [place] [address] [facility] [address] [place] [address] Larry Olvera MD Screening for malignant neoplasm of the rectum (Primary Dx) Social History Tobacco Use Types Packs/Day Years Used Date Smoking Tobacco: Never Assessed Comments Unknown Sex and Gender Information Value Date Recorded Sex Assigned at Not on file Legal Sex Female 5:42 AM SIGNAL PERSON Gender Identity Not on file Sexual Orientation Not on file documented as of this encounter Plan of Treatment Not on file documented as of this encounter Visit Diagnoses Diagnosis Screening for malignant neoplasm of the rectum- Primary documented in this encounter Care Teams Principal Hardware Architect Relationship Specialty Start Date End Date Sharan Gómez Jr., MD [address] [place] [address] PCP - General 08/10/05 documented as of this encounter
--- OUTSIDE RECORDS SUMMARY | 2025-09-19 05:42 | XMS_ITS | Encounter Summary ---
Author Organization [facility] Address [address] [place] [address] Care Team Providers Care Livestock Handler Name Role Phone Rico Muñiz MD, Sharan Jaime Primary Care Provider Encounter Details Date Type Department Care Team (Latest Contact Info) Description 06/20/1999 Outpatient Historical [facility] Imaging Services-[facility] [place] [address] [place] [address] Serge Arrington MD [address] [place] [address] Cough (Primary Dx) Social History Tobacco Use Types Packs/Day Years Used Date Smoking Tobacco: Never Assessed Comments Unknown Sex and Gender Information Value Date Recorded Sex Assigned at Not on file Legal Sex Female 5:42 AM DECISION SCIENCE ANALYST Gender Identity Not on file Sexual Orientation Not on file documented as of this encounter Plan of Treatment Not on file documented as of this encounter Visit Diagnoses Diagnosis Cough- Primary documented in this encounter Care Teams Livestock Handler Relationship Specialty Start Date End Date Sharan Gómez Jr., MD [address] [place] [address] PCP - General 08/10/05 documented as of this encounter
--- OUTSIDE RECORDS SUMMARY | 2025-09-19 05:42 | XMS_ITS | Encounter Summary ---
Author Organization [facility] Address [address] [facility] Attn: [place] [address] Care Team Providers Care Fleet Administrative Assistant Name Role Phone Rico Muñiz MD, Sharan Jaime Primary Care Provider Encounter Details Date Type Department Care Team (Late st Contact Info) Description 12/26/1999 Outpatient Historical Sharan Gómez Jr., MD [address] [place] [address] Social History Tobacco Use Types Packs/Day Years Used Date Smoking Tobacco: Never Assessed Comments Unknown Sex and Gender Information Value Date Recorded Sex Assigned at Not on file Legal Sex Female 5:42 AM ALL AROUND PRESSER Gender Identity Not on file Sexual Orientation Not on file documented as of this encounter Plan of Treatment Not on file documented as of this encounter Visit Diagnoses Not on filedocumented in this encounter Care Teams Fleet Administrative Assistant Relationship Specialty Start Date End Date Sharan Gómez Jr., MD [address] [place] [address] PCP - General 08/10/05 documented as of this encounter
--- OUTSIDE RECORDS SUMMARY | 2025-09-19 05:42 | XMS_ITS | Encounter Summary ---
Author Organization [facility] Address [address] [place] [address] Care Team Providers Care Net Manager Name Role Phone Rico Muñiz MD, Sharan Jaime Primary Care Provider Encounter Details Date Type Department Care Team (Latest Contact Info) Description 01/30/2001 Outpatient Historical [facility] Sharan Gómez Jr., MD [address] [place] [address] Endocarditis, valve unspecified, unspecified cause (Primary Dx); Acute sinusitis, unspecified; Bronchitis, not specified as acute or chronic Social History Tobacco Use Types Packs/Day Years Used Date Smoking Tobacco: Never Assessed Comments Unknown Sex and Gender Information Value Date Recorded Sex Assigned at Not on file Legal Sex Female 5:42 AM CLEAN ROOM ASSEMBLER Gender Identity Not on file Sexual Orientation Not on file documented as of this encounter Plan of Treatment Not on file documented as of this encounter Visit Diagnoses Diagnosis Endocarditis, valve unspecified, unspecified cause- Primary Acute sinusitis, unspecified Bronchitis, not specified as acute or chronic documented in this encounter Care Teams Net Manager Relationship Specialty Start Date End Date Sharan Gómez Jr., MD [address] [place] [phone] PCP - General 08/10/05 documented as of this encounter
--- OUTSIDE RECORDS SUMMARY | 2025-09-19 05:42 | XMS_ITS | Encounter Summary ---
Author Organization [facility] Address [address] [place] [address] Care Team Providers Care Vehicle Modification Technician Name Role Phone Rico Muñiz MD, Sharan Jaime Primary Care Provider Encounter Details Date Type Department Care Team (Latest Contact Info) Description 06/20/1999 Outpatient Historical [facility] Echocardiography - National [address] [place] [address] X358 Serge Arrington MD [address] [address] Painful respiration (Primary Dx); Precordial pain; Other dyspnea and respiratory abnormality Social History Tobacco Use Types Packs/Day Years Used Date Smoking Tobacco: Never Assessed Comments Unknown Sex and Gender Information Value Date Recorded Sex Assigned at Not on file Legal Sex Female 5:42 AM POULTRY VETERINARIAN Gender Identity Not on file Sexual Orientation Not on file documented as of this encounter Plan of Treatment Not on file documented as of this encounter Visit Diagnoses Diagnosis Painful respiration- Primary Precordial pain Other dyspnea and respiratory abnormality documented in this encounter Care Teams Vehicle Modification Technician Relationship Specialty Start Date End Date Sharan Gómez Jr., MD [address] [place] [phone] PCP - General 08/10/05 documented as of this encounter
--- OUTSIDE RECORDS SUMMARY | 2025-09-19 05:42 | XMS_ITS | Encounter Summary ---
Author Organization [facility] Address [address] [place] [address] Care Team Providers Care Motorcycle Police Officer Name Role Phone Rico Muñiz MD, Sharan Jaime Primary Care Provider Encounter Details Date Type Department Care Team (Late st Contact Info) Description 07/26/1999 Outpatient Historical [facility] Cardiology- [place] [address] [place] [phone] [place] [facility] [address] [facility] [place] [address] Pain in limb (Primary Dx); Heart valve replaced by other means Social History Tobacco Use Types Packs/Day Years Used Date Smoking Tobacco: Never Assessed Comments Unknown Sex and Gender Information Value Date Recorded Sex Assigned at Not on file Legal Sex Female 5:42 AM BELT POLISHER Gender Identity Not on file Sexual Orientation Not on file documented as of this encounter Plan of Treatment Not on file documented as of this encounter Visit Diagnoses Diagnosis Pain in limb- Primary Pain in soft tissues of limb Heart valve replaced by other means documented in this encounter Care Teams Motorcycle Police Officer Relationship Specialty Start Date End Date Sharan Gómez Jr., MD [address] [place] [phone] PCP - General 08/10/05 documented as of this encounter
[2025-09-19 05:47] VITALS: BP 135/101; PULSE 84; O2SAT 94
--- NOTE | 2025-09-19 05:48 | W.ED.ANXIETY ---
HPI - Anxiety General: Chief Complaint: Anxiety Stated Complaint: CP Time Seen by Provider: 09/19/25 05:47 History of Present Illness: 74-year-old female with a history of anxiety, anemia, Alzheimer's dementia, chronic kidney disease, hypertension, coronary artery disease, congestive heart failure, hypothyroidism, hyperlipidemia and atrial fibrillation with chronic anticoagulation on Coumadin who presents emergency room with chest discomfort. She said she woke up this morning and was not feeling well and had some chest pain. This is since improved some but is still mildly present. She was given nitro by EMS. Says she feels short of breath. She also feels anxious. No cough. No fever. No abdominal pain. No nausea or vomiting. No altered mental status. No focal motor deficits. Related Data Home Medications ?Medication ?Instructions ?Recorded ?Confirmed nitroglycerin 0.4 mg sublingual 0.4 mg sublingual Q5M PRN chest 11/07/19 09/06/25 tablet (Nitrostat) pains levothyroxine 75 mcg tablet 75 mcg PO DAILY@0700 hypothyroidism 11/11/20 09/06/25 (Euthyrox) tramadol 50 mg tablet 50 mg PO Q6H PRN Pain 11/11/20 09/06/25 meclizine 12.5 mg tablet 12.5 mg PO Q6H PRN nausea and 04/19/21 09/06/25 vomiting bismuth subsalicylate 525 mg/15 mL 525 mg PO Q8H PRN 08/15/21 09/06/25 oral suspension (Pepto-Bismol Max Nausea/vomiting/diarrhea St) mirtazapine 15 mg tablet 15 mg PO QAM 05/21/24 09/06/25 amiodarone 200 mg tablet 200 mg PO DAILY PRN hold if blood 01/31/25 09/06/25 pressure below 110/60 cetirizine 10 mg tablet (Zyrtec) 10 mg PO PRN PRN Allergy Symptoms 01/31/25 09/06/25 hydroxyzine HCl 25 mg tablet 25 mg PO TID PRN Anxiety 01/31/25 09/06/25 ipratropium bromide 42 mcg (0.06 2 spray intranasal TID PRN 01/31/25 09/06/25 %) nasal spray ALLERGIES magnesium hydroxide 400 mg/5 mL 30 ml PO PRN PRN bowel movemaent 01/31/25 09/06/25 oral suspension (Milk of Magnesia) polyethylene glycol 3350 17 17 g PO QAM Constipation 01/31/25 09/06/25 gram/dose oral powder (Miralax) warfarin 2.5 mg tablet See Rx Instructions .Route .COMPLEX 01/31/25 09/06/25 folic acid 1 mg tablet 1 mg PO DAILY 06/22/25 09/06/25 acetaminophen 500 mg tablet 1,000 mg PO Q8H 06/25/25 09/06/25 fiisx-anuaxjwv-jpb-turp-pet 1 ea topical PRN PRN thick toe 06/25/25 09/06/25 topical ointment nails cyanocobalamin (vitamin B-12) 2,000 mcg sublingual DAILY 06/25/25 09/06/25 1,000 mcg sublingual tablet methyl salicylate 30 %-menthol 10 1 applic topical TID PRN sore 06/25/25 09/06/25 % topical cream (Icy Hot) muscles spironolactone 25 mg tablet 25 mg PO QAM 06/25/25 09/06/25 aspirin 81 mg tablet,delayed 81 mg PO DAILY 07/27/25 09/06/25 release ondansetron 4 mg disintegrating 4 mg PO Q6H PRN Nausea And Vomiting 07/27/25 09/06/25 tablet pantoprazole 40 mg tablet,delayed 40 mg PO DAILY 09/06/25 09/06/25 release Previous Rx's ?Medication ?Instructions ?Recorded metoprolol tartrate 100 mg tablet 100 mg PO BID #180 tabs 12/05/24 galantamine 8 mg 24 hr 8 mg PO QAM 90 days #90 caps 05/06/25 capsule,extended release memantine 5 mg tablet 5 mg PO BID #180 tabs 05/06/25 atorvastatin 40 mg tablet 40 mg PO BEDTIME #30 tabs 06/29/25 isosorbide mononitrate 30 mg 30 mg PO DAILY #30 tabs 09/06/25 tablet,extended release 24 hr furosemide 40 mg tablet 80 mg (2 x 40 mg) PO DAILY@0700 09/16/25 edema #135 tabs Allergies Allergy/AdvReac Type Severity Reaction Status Date / Time diltiazem (From Cardizem) Allergy Unknown Verified 09/06/25 06:26 morphine Allergy Unknown Verified 09/06/25 06:26 Review of Systems Narrative: Constitutional symptoms: Negative except as documented in HPI. Skin symptoms: Negative except as documented in HPI. Eye symptoms: Negative except as documented in HPI. ENMT symptoms: Negative except as documented in HPI. Respiratory symptoms: Negative except as documented in HPI. Cardiovascular symptoms: Negative except as documented in HPI. Gastrointestinal symptoms: Negative except as documented in HPI. Genitourinary symptoms: Negative except as documented in HPI. Musculoskeletal symptoms: Negative except as documented in HPI. Neurologic symptoms: Negative except as documented in HPI. Psychiatric symptoms: Negative except as documented in HPI. Endocrine symptoms: Negative except as documented in HPI. PFSH ED PFSH: Medical History (Updated 09/19/25 @ 07:34 by Juany Song MD) Chronic anxiety History of iron deficiency anemia Alzheimer disease CKD (chronic kidney disease) stage 2, GFR 60-89 ml/min Hypertension CAD (coronary artery disease) CHF (congestive heart failure) Insomnia Hypothyroid Hyperlipidemia Chronic neck and back pain GERD (gastroesophageal reflux disease) Chronic atrial fibrillation Chronic constipation Surgical History History of heart artery stent Coronary angioplasty/stent placement in 2011 and in 2012 Hx of colonoscopy 2018 H/O esophagogastroduodenoscopy 2011, 2016, and 2018 S/P cholecystectomy H/O section Mitral valve replaced mechanical valve replacement 1994 Family History Other CAD (coronary artery disease) Diabetes Social History Smoking and tobacco/nicotine status: never used tobacco/nicotine Alcohol intake: never Substance/Drug Use: never Housing: Assisted Living Facility Marital status: Single Number of children: 1 Current occupational status: disabled Current gender identity: Female Female Reproductive History: Para: 1 Physical Exam Narrative: EXAM NARRATIVE: General: Alert, no acute distress. Skin: Warm, dry. Head: Normocephalic, atraumatic. Neck: Supple, trachea midline. Eye: Extraocular movements are intact. Ears, nose, mouth and throat: mucosa moist. Cardiovascular: Regular, Normal peripheral perfusion. Respiratory: Lungs are clear to auscultation, respirations are non-labored, breath sounds are equal, Symmetrical chest wall expansion. Gastrointestinal: Soft, Nontender, Non distended Musculoskeletal: Normal ROM, no deformity. Neurological: Alert and oriented, No focal neurological deficit observed. Psychiatric: Cooperative, appropriate mood & affect. Course Vital Signs: Vital signs: Vital Signs Temperature 98.1 F 09/19/25 05:22 Pulse Rate 83 09/19/25 07:46 Respiratory Rate 20 H 09/19/25 05:22 Blood Pressure 125/80 09/19/25 07:46 Pulse Oximetry 94 09/19/25 07:46 Clincial Decision Support The following clinical decision support tools were used to aid in care of the patient HEART Score -> History: Slightly Suspicous, EKG: Normal, Age: 65 or more yrs, Risk Factors: >/=3 Risk Factors, Troponin: Baseline Trop <16 ng/L. Resulting HEART Score: 4. MDM - Anxiety Medical Decision Making Medical decision making Patient's reason for coming to the emergency room: Chest pain Social determinants: Retired. Lives at home. I reviewed the patient's medical record. 74-year-old female with a history of anxiety, anemia, Alzheimer's dementia, chronic kidney disease, hypertension, coronary artery disease, congestive heart failure, hypothyroidism, hyperlipidemia and atrial fibrillation with chronic anticoagulation on Coumadin. Patient had an echo about 10 days ago. Normal EF. Severe tricuspid regurg. Cardiac catheterization back in May. Severe coronary disease with three-vessel disease. She had had an abnormal stress test. At that point was determined to continue current medical management and risk factor modification I reviewed the patient's current home meds Patient is on Coumadin Alternate historians: None Differential diagnosis for patient with chest pain includes but is not limited to and based on the above HPI, review of systems and physical exam: Pneumonia. unstable angina. angina. Acute coronary syndrome / PR. Pulmonary embolism. Costochondritis / musculoskeletal. Pleurisy. Pericarditis. Esophageal spasm. Pancreatitis. Cholecystitis. Orders placed to evaluate differential diagnosis based on the above differential, HPI and physical exam. Chest x-ray: Possibly some early CHF. Some atelectasis. No infiltrates. This was reviewed and interpreted by myself the emergency room physician. I also reviewed the radiology report. EKG: Time 5:29 AM. Rate 79. Atrial fibrillation with controlled rate, nonspecific ST changes, no ectopy, This was reviewed and interpreted by the ER physician at 5:35 AM Lab Review: Laboratory results were reviewed and interpreted by myself the emergency room physician. No leukocytosis. No anemia. No renal failure. Cardiac markers are negative serially. Assessment of risk: Level of risk: Moderate risk patient. Elderly with multiple comorbidities Hospitalization considerations: Did consider admission today but workup is negative and her chest pain is atypical. She has had multiple recent workups for this. Reexamination: Patient remained stable. No increased work of breathing. No altered mental status. No focal motor deficits. Assessment and plan: Chest pain ?Heart score was a 4 but patient's pain seems more anxiety related. I did give her a small dose of IV Lasix as she is really not very short of breath and does not have a lot of swelling. - Discharged home - Discussed plan with patient. Answered any questions. - Evaluation and treatment of this problem were appropriate in the emergency setting. Lab Data 09/19/25 06:01 09/19/25 06:01 Radiology Impressions Chest X-Ray 09/19/25 05:32 IMPRESSION: Findings above related to mild congestive changes with some subsegmental atelectasis. Laboratory Results WBC 5.47 10^3/uL (3.29-11.43) 09/19/25 06:01 RBC 3.32 10^6/uL (3.85-5.65) L 09/19/25 06:01 Hgb 11.60 g/dL (11.27-16.99) 09/19/25 06:01 Hct 35.1 % (36-47) L 09/19/25 06:01 MCV 105.7 fl (85-98) H 09/19/25 06:01 MCH 34.9 pg (27-33) H 09/19/25 06:01 MCHC 33.0 g/dL (30-55) 09/19/25 06:01 RDW 12.4 % (12.1-15.1) 09/19/25 06:01 Plt Count 176 10^3/cmm (157-399) 09/19/25 06:01 MPV 9.3 fL (7.4-10.4) 09/19/25 06:01 Neut % (Auto) 54.6 % 09/19/25 06:01 Lymph % (Auto) 27.1 % 09/19/25 06:01 [place] % (Auto) 10.4 % 09/19/25 06:01 Eos % (Auto) 5.9 % 09/19/25 06:01 Baso % (Auto) 1.8 % 09/19/25 06:01 Neut # (Auto) 2.99 10^3/uL (1.8-7.7) 09/19/25 06:01 Lymph # (Auto) 1.5 10^3/uL (0.8-4.8) 09/19/25 06:01 [place] # (Auto) 0.6 10^3/uL (0.2-0.9) 09/19/25 06:01 Eos # (Auto) 0.3 10^3/uL (0.0-0.8) 09/19/25 06:01 Baso # (Auto) 0.1 10^3/uL (0.0-0.1) 09/19/25 06:01 Nucleated RBC % (auto) 0 % 09/19/25 06:01 Nucleated RBCs # 0.0 /100WBC 09/19/25 06:01 PT 22.80 SECONDS (12.1-14.9) H 09/19/25 06:01 INR 1.89 (0.8-1.2) H 09/19/25 06:01 APTT 33.8 SECONDS (23.9-36.7) 09/19/25 06:01 Sodium 138 mmol/L (136-145) 09/19/25 06:01 Potassium 4.0 mmol/L (3.5-5.1) 09/19/25 06:01 Chloride 102 mmol/L (98-107) 09/19/25 06:01 Carbon Dioxide 27 mmol/L (22-29) 09/19/25 06:01 Anion Gap 13.0 (5-19) 09/19/25 06:01 BUN 20 mg/dL (8-23) 09/19/25 06:01 Creatinine 0.8 mg/dL (0.5-0.9) 09/19/25 06:01 GFR Calculation Not Reportable 09/19/25 06:01 Glucose 89 mg/dL (65-115) 09/19/25 06:01 Calculated Osmolality 288 mOsm/kg (285-295) 09/19/25 06:01 Calcium 10.0 mg/dL (8.5-10.5) 09/19/25 06:01 Phosphorus 2.9 mg/dL (2.5-4.5) 09/19/25 06:01 Magnesium 2.3 mg/dL (1.7-2.3) 09/19/25 06:01 Total Bilirubin 0.9 mg/dL (0.15-1.2) 09/19/25 06:01 AST 23 U/L (0-32) 09/19/25 06:01 ALT 14 U/L (0-33) 09/19/25 06:01 Alkaline Phosphatase 91 U/L (35-105) 09/19/25 06:01 Troponin T Baseline 13 ng/L (0-10) H 09/19/25 06:01 Troponin T 120 Minute 12.25 ng/L (0-10) H 09/19/25 06:51 Delta Troponin T -0.75 ABS# (0-10) L 09/19/25 06:51 NT-Pro-B Natriuret Pep 1063 pg/mL (0-450) H 09/19/25 06:01 Total Protein 6.8 g/dL (6.6-8.7) 09/19/25 06:01 Albumin 4.6 g/dL (3.5-5.2) 09/19/25 06:01 Globulin 2.2 g/dL (1.3-4.6) 09/19/25 06:01 Lipase 55 U/L (13-60) 09/19/25 06:01 All radiology interpretation(s) finalized by discharge Discharge Plan Discharge Patient Disposition: Home Clinical Impression: Non-cardiac chest pain Condition: Stable Prescriptions: No Action nitroglycerin [Nitrostat] 0.4 mg tablet, sublingual 0.4 mg SUBLINGUAL Q5M PRN (Reason: chest pains) Pepto-Bismol Max St 525 mg/15 mL suspension 525 mg PO Q8H PRN (Reason: Nausea/vomiting/diarrhea) Rx Instructions: do not exceed 8 doses in a 24 hour period meclizine 12.5 mg tablet 12.5 mg PO Q6H PRN (Reason: nausea and vomiting ) mirtazapine 15 mg tablet 15 mg PO QAM metoprolol tartrate 100 mg tablet 100 mg PO BID Qty: 180 3RF folic acid 1 mg tablet 1 mg PO DAILY galantamine 8 mg capsule,ext rel. pellets 24 hr 8 mg PO QAM 90 Days Qty: 90 3RF memantine 5 mg tablet 5 mg PO BID Qty: 180 3RF furosemide 40 mg tablet 80 mg PO DAILY@0700 Qty: 135 0RF tramadol 50 mg Tablet 50 mg PO Q6H PRN (Reason: Pain) levothyroxine [Euthyrox] 75 mcg tablet 75 mcg PO DAILY@0700 cetirizine [Zyrtec] 10 mg Tablet 10 mg PO PRN PRN (Reason: Allergy Symptoms) warfarin 2.5 mg tablet See Rx Instructions .ROUTE .COMPLEX Rx Instructions: Take 1 tablet by mouth on Sunday , Sunday , , Sunday , and Sunday hydroxyzine HCl 25 mg tablet 25 mg PO TID PRN (Reason: Anxiety) polyethylene glycol 3350 [Miralax] 17 gram/dose Powder 17 g PO QAM ipratropium bromide 42 mcg (0.06 %) spray,non-aerosol 2 spray INTRANASAL TID PRN (Reason: ALLERGIES) magnesium hydroxide [Milk of Magnesia] 400 mg/5 mL Suspension 30 ml PO PRN PRN (Reason: bowel movemaent ) amiodarone 200 mg tablet 200 mg PO DAILY PRN (Reason: hold if blood pressure below 110/60) cyanocobalamin (vitamin B-12) 1,000 mcg Tablet, Sublingual 2,000 mcg SUBLINGUAL DAILY uewps-tchpityi-lqs-turp-pet Ointment 1 ea TOPICAL PRN PRN (Reason: thick toe nails) acetaminophen 500 mg Tablet 1,000 mg PO Q8H Icy Hot 30-10 % Cream 1 applic TOPICAL TID PRN (Reason: sore muscles) spironolactone 25 mg tablet 25 mg PO QAM atorvastatin 40 mg Tablet 40 mg PO BEDTIME Qty: 30 0RF aspirin [Aspir-81] 81 mg Tablet,Delayed Release (Dr/Ec) 81 mg PO DAILY ondansetron 4 mg tablet,disintegrating 4 mg PO Q6H PRN (Reason: Nausea And Vomiting) isosorbide mononitrate 30 mg tablet extended release 24 hr 30 mg PO DAILY Qty: 30 0RF pantoprazole 40 mg tablet,delayed release (DR/EC) 40 mg PO DAILY Discharge Orders: Discharge ED (Routine); Ordered 09/19/25 Ordered By: Juany Song Referrals: Danny Marmolejo MD [Primary Care Provider, Family Practice] Discharge Diet: Usual diet Discharge Activity: Increase activity as tolerated Patient Instructions: Chest Pain (ED), Opioid Safety, Pain Management, Patient Portal & Radha Instructions Activity Restrictions/Additional Instructions: Thank you for choosing [facility] for your healthcare needs today. You have been screened and evaluated and felt safe for discharge. Health conditions do change or evolve sometimes and as such it is important that you follow up with your Primary Doctor to be re checked, 3-5 days is a general good time frame for follow up. You are always welcome to return to the ED for re assessment if your symptoms are worsening or you have new concerns Print Language: Haitian Coding Level of Care Code ED Sintering Plant Supervisor for Chg Fwd Heart Score HEART Score Components History: Slightly Suspicous EKG: Normal Age: 65 or more yrs Risk Factors: >/=3 Risk Factors Troponin: Baseline Trop <16 ng/L HEART Score RESULT HEART Score: 4
[2025-09-19 06:08] LABS: Hematocrit 35.1 % (36-47); Hemoglobin 11.60 g/dL (11.27-16.99); Mean Corpuscular HGB Conc 33.0 g/dL (30-55); Mean Corpuscular Hemoglobin 34.9 pg (27-33); Mean Corpuscular Volume 105.7 fl (85-98); Nucleated Red Blood Cells % 0 %; Platelet Count 176 10^3/cmm (157-399); Red Blood Count 3.32 10^6/uL (3.85-5.65); White Blood Count 5.47 10^3/uL (3.29-11.43)
[2025-09-19 06:27] LABS: INR 1.89 (0.8-1.2); Prothrombin Time 22.80 SECONDS (12.1-14.9); Troponin(5th) Baseline 13 ng/L (0-10)
[2025-09-19 06:28] LABS: Partial Thromboplastin Time 33.8 SECONDS (23.9-36.7)
[2025-09-19 06:29] VITALS: BP 140/93; PULSE 68; O2SAT 95
[2025-09-19 06:30] VITALS: PULSE 84; O2SAT 95
[2025-09-19 06:36] LABS: Alanine Aminotransferase 14 U/L (0-33); Albumin Level 4.6 g/dL (3.5-5.2); Alkaline Phosphatase 91 U/L (35-105); Anion Gap 13.0 (5-19); Aspartate Amino Transferase 23 U/L (0-32); Blood Urea Nitrogen 20 mg/dL (8-23); Calcium 10.0 mg/dL (8.5-10.5); Carbon Dioxide 27 mmol/L (22-29); Chloride 102 mmol/L (98-107); Creatinine Clr Calc Pharmacy 55.2868; Globulin 2.2 g/dL (1.3-4.6); Glucose 89 mg/dL (65-115); Lipase 55 U/L (13-60); Magnesium 2.3 mg/dL (1.7-2.3); NT Pro B Type Natriuretic Pept 1063 pg/mL (0-450); Osmolality Calculated 288 mOsm/kg (285-295); Potassium 4.0 mmol/L (3.5-5.1); Sodium 138 mmol/L (136-145); Total Protein 6.8 g/dL (6.6-8.7)
[2025-09-19 07:16] LABS: Troponin 5 2HR 12.25 ng/L (0-10)
[2025-09-19 07:19] LABS: Troponin 5 2HR Delta -0.75 ABS# (0-10)
[2025-09-19] MEDS: FUROsemide 10 mg/mL SDV 4mL 40 MG IVP (07:44)
[2025-09-19 07:46] VITALS: BP 125/80; PULSE 83; O2SAT 94
== END 2025-09-19 07:56 | disposition home or self-care (01) ==
PROVIDERS: Student in an Organized Health Care Education/Training Program; Emergency Provider Emergency Medicine; PCP Family Medicine
DX: R07.89 Other chest pain (principal); J98.11 Atelectasis; I48.91 Unspecified atrial fibrillation; I10 Essential (primary) hypertension; I25.10 Atherosclerotic heart disease of native coronary artery without angina pectoris; I50.9 Heart failure, unspecified; K21.9 Gastro-esophageal reflux disease without esophagitis; Z79.82 Long term (current) use of aspirin; Z79.01 Long term (current) use of anticoagulants
CPT/HCPCS: 71045; 80053; 83690; 83735; 83880; 84100; 84484; 85025; 85610; 85730; 93005; 96374; 99285; J1938

== ENCOUNTER → 2025-09-22 13:26 | Outpatient (BNVA) | payer MEDICARE, MEDICAID, SELFPAY | PROVIDERS: PCP Family Medicine; Visit Provider Surgery | DX: K40.90 Unilateral inguinal hernia, without obstruction or gangrene, not specified as recurrent (principal) | CPT/HCPCS: 99213 ==

== ENCOUNTER 2025-09-25 08:15 | Emergency (ER) | payer MEDICARE, MEDICAID, SELFPAY ==
[2025-09-25 08:15] VITALS: BP 131/99; PULSE 101; RESP 18; TEMP 36.7; O2SAT 97; BMI 27.8
--- NOTE | 2025-09-25 08:15 | XRR_ITS ---
PROCEDURE INFORMATION: Exam: XR Chest Exam date and time: 09/25/2025 8:20 AM Age: 74 years old Clinical indication: Pain; Angina pectoris; Additional info: Cp TECHNIQUE: Imaging protocol: Radiologic exam of the chest. Views: 1 view. COMPARISON: CR (CHEST, ) 09/19/2025 6:25 AM FINDINGS: Lungs: Pulmonary vessels are within normal limits. No significant change in bilateral pulmonary fibrotic changes and bibasilar linear densities. Pleural spaces: No pneumothorax. Heart/Mediastinum: Cardiomegaly is seen. Bones/joints: Post sternotomy changes are seen. XR/XR chest 1V portable [id number] IMPRESSION: 1. No significant change in bilateral pulmonary fibrotic changes and bibasilar linear densities. 2. Cardiomegaly.
--- NOTE | 2025-09-25 08:18 | ECG_ITS ---
[facility] Test Date: 2025-09-25 Pat Name: Odilia Ulloa Department: Room: Gender: Female Trimmer Machine: : 1950 Requested By: Piyush Foster Order Number: [id number] Epps MD: Hema Siu M.D. Measurements Intervals [place] Rate: 93 P: 0 TX: 0 QRS: 46 QRSD: 130 T: 17 QT: 409 QTc: 509 Interpretive Statements ATRIAL FIBRILLATION POSSIBLE RIGHT VENTRICULAR CONDUCTION DELAY [RSR (QR) IN V1/V2] MINIMAL ST DEPRESSION [0.025+ mV ST DEPRESSION] ABNORMAL RHYTHM ECG Compared to ECG 09/19/2025 05:29:47 No significant changes Electronically Signed On 09-26-2025 16:34:50 BEEF SPLITTER by Hema Siu M.D. [email or web address]
--- NOTE | 2025-09-25 08:22 | W.ED.CHESTPA ---
HPI - Chest Pain General: Chief Complaint: Chest Pain Stated Complaint: cp Source: patient and EMS Mode of arrival: EMS Limitations: no limitations History of Present Illness: 74-year-old female who is well-known to the ER has been seen her multiple times for chest pain. Patient states she woke up this morning at 5 with some sharp pains in the center of her chest. States that pain has since improved currently 1 out of 10 she denies any shortness of breath denies any nausea or vomiting. Does have a history of A-fib. Related Data Home Medications ?Medication ?Instructions ?Recorded ?Confirmed nitroglycerin 0.4 mg sublingual 0.4 mg sublingual Q5M PRN chest 11/07/19 09/22/25 tablet (Nitrostat) pains levothyroxine 75 mcg tablet 75 mcg PO DAILY@0700 hypothyroidism 11/11/20 09/22/25 (Euthyrox) tramadol 50 mg tablet 50 mg PO Q6H PRN Pain 11/11/20 09/22/25 meclizine 12.5 mg tablet 12.5 mg PO Q6H PRN nausea and 04/19/21 09/22/25 vomiting bismuth subsalicylate 525 mg/15 mL 525 mg PO Q8H PRN 08/15/21 09/22/25 oral suspension (Pepto-Bismol Max Nausea/vomiting/diarrhea St) mirtazapine 15 mg tablet 15 mg PO QAM 05/21/24 09/22/25 amiodarone 200 mg tablet 200 mg PO DAILY PRN hold if blood 01/31/25 09/22/25 pressure below 110/60 cetirizine 10 mg tablet (Zyrtec) 10 mg PO PRN PRN Allergy Symptoms 01/31/25 09/22/25 hydroxyzine HCl 25 mg tablet 25 mg PO TID PRN Anxiety 01/31/25 09/22/25 ipratropium bromide 42 mcg (0.06 2 spray intranasal TID PRN 01/31/25 09/22/25 %) nasal spray ALLERGIES magnesium hydroxide 400 mg/5 mL 30 ml PO PRN PRN bowel movemaent 01/31/25 09/22/25 oral suspension (Milk of Magnesia) warfarin 2.5 mg tablet See Rx Instructions .Route .COMPLEX 01/31/25 09/22/25 folic acid 1 mg tablet 1 mg PO DAILY 06/22/25 09/22/25 acetaminophen 500 mg tablet 1,000 mg PO Q8H 06/25/25 09/22/25 nmexb-bnjypkyg-pjb-turp-pet 1 ea topical PRN PRN thick toe 06/25/25 09/22/25 topical ointment nails cyanocobalamin (vitamin B-12) 2,000 mcg sublingual DAILY 06/25/25 09/22/25 1,000 mcg sublingual tablet methyl salicylate 30 %-menthol 10 1 applic topical TID PRN sore 06/25/25 09/22/25 % topical cream (Icy Hot) muscles spironolactone 25 mg tablet 25 mg PO QAM 06/25/25 09/22/25 aspirin 81 mg tablet,delayed 81 mg PO DAILY 07/27/25 09/22/25 release ondansetron 4 mg disintegrating 4 mg PO Q6H PRN Nausea And Vomiting 07/27/25 09/22/25 tablet pantoprazole 40 mg tablet,delayed 40 mg PO DAILY 09/06/25 09/22/25 release Previous Rx's ?Medication ?Instructions ?Recorded metoprolol tartrate 100 mg tablet 100 mg PO BID #180 tabs 12/05/24 galantamine 8 mg 24 hr 8 mg PO QAM 90 days #90 caps 05/06/25 capsule,extended release memantine 5 mg tablet 5 mg PO BID #180 tabs 05/06/25 atorvastatin 40 mg tablet 40 mg PO BEDTIME #30 tabs 06/29/25 isosorbide mononitrate 30 mg 30 mg PO DAILY #30 tabs 09/06/25 tablet,extended release 24 hr furosemide 40 mg tablet 80 mg (2 x 40 mg) PO DAILY@0700 09/16/25 edema #135 tabs Allergies Allergy/AdvReac Type Severity Reaction Status Date / Time d[facility] ([facility] Allergy Unknown Verified 09/22/25 13:37 morphine Allergy Unknown Verified 09/22/25 13:37 Review of Systems Card: Reports: chest pain [facility] ED PFSH: Medical History (Updated 09/25/25 @ 08:57 by Piyush Foster MD) Chronic anxiety History of iron deficiency anemia Alzheimer disease CKD (chronic kidney disease) stage 2, GFR 60-89 ml/min Hypertension CAD (coronary artery disease) CHF (congestive heart failure) Insomnia Hypothyroid Hyperlipidemia Chronic neck and back pain GERD (gastroesophageal reflux disease) Chronic atrial fibrillation Chronic constipation Surgical History History of heart artery stent Coronary angioplasty/stent placement in 2011 and in 2012 Hx of colonoscopy 2017 H/O esophagogastroduodenoscopy 2011, 2016, and 2017 S/P cholecystectomy H/O section Mitral valve replaced mechanical valve replacement 1994 Family History Other CAD (coronary artery disease) Diabetes Social History Smoking and tobacco/nicotine status: former use of tobacco/nicotine Alcohol intake: never Substance/Drug Use: never Housing: Assisted Living Facility Marital status: Single Number of children: 1 Current occupational status: disabled Current gender identity: Female Female Reproductive History: Para: 1 Physical Exam Const: COMMON NORMALS: no acute distress, patient oriented x3 and healthy appearing HENMT: COMMON NORMALS: normocephalic and atraumatic HEAD & SCALP: normocephalic and atraumatic Neck/C-Spine: COMMON NORMALS: full ROM and supple Chest: COMMONS NORMALS: normal inspection of the chest Resp: COMMON NORMALS: normal respiratory effort, No retractions, No use of accessory muscles and clear to auscultation bilaterally AUSCULTATION: clear to auscultation bilaterally Cardio: COMMON NORMALS: regular rate and No murmurs present (Cardio) RATE: regular rate RHYTHM: abnormal rhythm irregularly irregular GI: COMMON NORMALS: Normal to inspection, nondistended, normoactive bowel sounds present, Soft to palpation, non-tender and no masses PALPATION: Yes Soft to palpation Extremity: COMMON NORMALS: normal to inspection and full ROM Neuro: COMMON NORMALS: patient oriented x3, moves all extremities and no focal motor deficits Psych: COMMON NORMALS: mental status grossly normal, Normal thought process present and cooperative THOUGHT PROCESS: Normal thought process present Skin: COMMON NORMALS: no rashes or lesions noted and no wounds GENERAL SKIN EXAM: no rashes or lesions noted Course Vital Signs: Vital signs: Vital Signs Temperature 98.1 F 09/25/25 08:15 Pulse Rate 88 09/25/25 09:24 Respiratory Rate 16 09/25/25 08:53 Blood Pressure 131/89 09/25/25 09:24 Pulse Oximetry 95 09/25/25 09:24 Oxygen Delivery Me thod Room Air 09/25/25 08:53 MDM - Chest Pain Medical Decision Making Patient presents here chest pain has been going on throughout the day. Differential includes ACS, pulm emboli, pneumothorax, aortic dissection. Patient chest x-ray was interpreted by me showed no acute abnormalities she has no symptoms of a pulmonary emboli. She has no signs of dissection or pneumothorax. Patient has chronic chest pains been seen here multiple times for it in the past. Her troponin here is at her baseline EKG shows A-fib heart rate [address] elevation QRS 130 QTc 459 unchanged from previous. Patient's diagnosis is atypical chest pain I did go over all findings with her she is stable for discharge she is to follow-up with PCP and return if worsening she understands agrees to plan Medical Records I reviewed the patient's medical records. Lab Data I reviewed the patient's lab results. 09/25/25 08:25 09/25/25 08:25 Radiology Impressions Chest X-Ray 09/25/25 08:15 IMPRESSION: 1. No significant change in bilateral pulmonary fibrotic changes and bibasilar linear densities. 2. Cardiomegaly. Laboratory Results WBC 4.16 10^3/uL (3.29-11.43) 09/25/25 08:25 RBC 3.60 10^6/uL (3.85-5.65) L 09/25/25 08:25 Hgb 12.40 g/dL (11.27-16.99) 09/25/25 08:25 Hct 38.2 % (36-47) 09/25/25 08:25 MCV 106.1 fl (85-98) H 09/25/25 08:25 MCH 34.4 pg (27-33) H 09/25/25 08:25 MCHC 32.5 g/dL (30-55) 09/25/25 08:25 RDW 12.5 % (12.1-15.1) 09/25/25 08:25 Plt Count 187 10^3/cmm (157-399) 09/25/25 08:25 MPV 9.3 fL (7.4-10.4) 09/25/25 08:25 Neut % (Auto) 50.5 % 09/25/25 08:25 Lymph % (Auto) 30.3 % 09/25/25 08:25 Lamb % (Auto) 12.0 % 09/25/25 08:25 Eos % (Auto) 4.8 % 09/25/25 08:25 Baso % (Auto) 2.2 % 09/25/25 08:25 Neut # (Auto) 2.10 10^3/uL (1.8-7.7) 09/25/25 08:25 Lymph # (Auto) 1.3 10^3/uL (0.8-4.8) 09/25/25 08:25 Lamb # (Auto) 0.5 10^3/uL (0.2-0.9) 09/25/25 08:25 Eos # (Auto) 0.2 10^3/uL (0.0-0.8) 09/25/25 08:25 Baso # (Auto) 0.1 10^3/uL (0.0-0.1) 09/25/25 08:25 Nucleated RBC % (auto) 0 % 09/25/25 08:25 Nucleated RBCs # 0.0 /100WBC 09/25/25 08:25 Sodium 141 mmol/L (136-145) 09/25/25 08:25 Potassium 4.2 mmol/L (3.5-5.1) 09/25/25 08:25 Chloride 106 mmol/L (98-107) 09/25/25 08:25 Carbon Dioxide 27 mmol/L (22-29) 09/25/25 08:25 Anion Gap 12.2 (5-19) 09/25/25 08:25 BUN 17 mg/dL (8-23) 09/25/25 08:25 Creatinine 0.9 mg/dL (0.5-0.9) 09/25/25 08:25 GFR Calculation Not Reportable 09/25/25 08:25 Glucose 94 mg/dL (65-115) 09/25/25 08:25 Calculated Osmolality 293 mOsm/kg (285-295) 09/25/25 08:25 Calcium 10.0 mg/dL (8.5-10.5) 09/25/25 08:25 Total Bilirubin 0.8 mg/dL (0.15-1.2) 09/25/25 08:25 AST 25 U/L (0-32) 09/25/25 08:25 ALT 15 U/L (0-33) 09/25/25 08:25 Alkaline Phosphatase 88 U/L (35-105) 09/25/25 08:25 Troponin T Baseline 15 ng/L (0-10) H 09/25/25 08:25 NT-Pro-B Natriuret Pep 1441 pg/mL (0-450) H 09/25/25 08:25 Total Protein 6.8 g/dL (6.6-8.7) 09/25/25 08:25 Albumin 4.6 g/dL (3.5-5.2) 09/25/25 08:25 Globulin 2.2 g/dL (1.3-4.6) 09/25/25 08:25 All radiology interpretation(s) finalized by discharge EKG Data EKG 1: I personally reviewed and interpreted this EKG as follows: EKG interpretation date: 09/25/25 EKG interpretation time: 08:18 Interpretation: afib hr [address] elevation qrs 130 qtc 459 Discharge Plan Discharge Patient Disposition: Home Clinical Impression: Atypical chest pain Condition: Stable Prescriptions: No Action nitroglycerin [Nitrostat] 0.4 mg tablet, sublingual 0.4 mg SUBLINGUAL Q5M PRN (Reason: chest pains) Pepto-Bismol Max St 525 mg/15 mL suspension 525 mg PO Q8H PRN (Reason: Nausea/vomiting/diarrhea) Rx Instructions: do not exceed 8 doses in a 24 hour period meclizine 12.5 mg tablet 12.5 mg PO Q6H PRN (Reason: nausea and vomiting ) mirtazapine 15 mg tablet 15 mg PO QAM metoprolol tartrate 100 mg tablet 100 mg PO BID Qty: 180 3RF folic acid 1 mg tablet 1 mg PO DAILY galantamine 8 mg capsule,ext rel. pellets 24 hr 8 mg PO QAM 90 Days Qty: 90 3RF memantine 5 mg tablet 5 mg PO BID Qty: 180 3RF furosemide 40 mg tablet 80 mg PO DAILY@0700 Qty: 135 0RF tramadol 50 mg Tablet 50 mg PO Q6H PRN (Reason: Pain) levothyroxine [Euthyrox] 75 mcg tablet 75 mcg PO DAILY@0700 cetirizine [Zyrtec] 10 mg Tablet 10 mg PO PRN PRN (Reason: Allergy Symptoms) warfarin 2.5 mg tablet See Rx Instructions .ROUTE .COMPLEX Rx Instructions: Take 1 tablet by mouth on Sunday , Sunday , , Sunday , and Sunday hydroxyzine HCl 25 mg tablet 25 mg PO TID PRN (Reason: Anxiety) ipratropium bromide 42 mcg (0.06 %) spray,non-aerosol 2 spray INTRANASAL TID PRN (Reason: ALLERGIES) magnesium hydroxide [Milk of Magnesia] 400 mg/5 mL Suspension 30 ml PO PRN PRN (Reason: bowel movemaent ) amiodarone 200 mg tablet 200 mg PO DAILY PRN (Reason: hold if blood pressure below 110/60) cyanocobalamin (vitamin B-12) 1,000 mcg Tablet, Sublingual 2,000 mcg SUBLINGUAL DAILY mkfep-abzjkeny-vjk-turp-pet Ointment 1 ea TOPICAL PRN PRN (Reason: thick toe nails) acetaminophen 500 mg Tablet 1,000 mg PO Q8H Icy Hot 30-10 % Cream 1 applic TOPICAL TID PRN (Reason: sore muscles) spironolactone 25 mg tablet 25 mg PO QAM atorvastatin 40 mg Tablet 40 mg PO BEDTIME Qty: 30 0RF aspirin [Aspir-81] 81 mg Tablet,Delayed Release (Dr/Ec) 81 mg PO DAILY ondansetron 4 mg tablet,disintegrating 4 mg PO Q6H PRN (Reason: Nausea And Vomiting) isosorbide mononitrate 30 mg tablet extended release 24 hr 30 mg PO DAILY Qty: 30 0RF pantoprazole 40 mg tablet,delayed release (DR/EC) 40 mg PO DAILY Discharge Orders: Discharge ED (Routine); Ordered 09/25/25 Ordered By: Piyush Foster Referrals: Danny Marmolejo MD [Primary Care Provider, Family Practice] - 4-7 days Discharge Diet: Advance as tolerated Discharge Activity: Resume usual activity Patient Instructions: Chest Pain (ED) Print Language: Swedish Coding Level of Care Code ED Hydrometallurgical Engineer for Chg Fwd Heart Score HEART Score Components History: Slightly Suspicous EKG: Normal Age: 65 or more yrs Risk Factors: 1 or 2 Risk Factors Troponin: Baseline Trop <16 ng/L HEART Score RESULT HEART Score: 3
--- OUTSIDE RECORDS SUMMARY | 2025-09-25 08:25 | XMS_ITS | Encounter Summary ---
Author Organization [facility] Address [address] [place] [address] Care Team Providers Care Renal Medicine Specialist Name Role Phone Rico Muñiz MD, Sharan Jaime Primary Care Provider Encounter Details Date Type Department Care Team (Latest Contact Info) Description 02/16/1999 Outpatient Historical [facility] Sharan Gómez Jr., MD [address] [place] [address] Unspecified essential hypertension (Primary Dx); [facility]CI (current) use of anticoagulants Social History Tobacco Use Types Packs/Day Years Used Date Smoking Tobacco: Never Assessed Comments Unknown Sex and Gender Information Value Date Recorded Sex Assigned at Not on file 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
--- OUTSIDE RECORDS SUMMARY | 2025-09-25 08:25 | XMS_ITS | Encounter Summary ---
Author Organization [facility] Address [address] [place] [address] Care Team Providers Care Medical Communication Specialist Name Role Phone iRco Muñiz MD, Sharan Jaime Primary Care Provider Encounter Details Date Type Department Care Team (Latest Contact Info) Description 08/06/2006 Outpatient Historical [facility] Int Luis AFaisal Lopez [address] [place] [phone] Serge Arrington MD [address] [place] [address] Mitral Valve Disorder (Primary Dx); Other and Unspecified Hyperlipidemia; Screening for Malignant Neoplasm of the Cervix Social History Tobacco Use Types Packs/Day Years Used Date Smoking Tobacco: Never Assessed Comments Unknown Sex and Gender Information Value Date Recorded Sex Assigned at Not on file 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
--- OUTSIDE RECORDS SUMMARY | 2025-09-25 08:25 | XMS_ITS | Encounter Summary ---
Author Organization [facility] Address [address] [facility] Attn: [place] [address] Care Team Providers Care Ballet Soloist Name Role Phone Rico Muñiz MD, Sharan Jaime Primary Care Provider Encounter Details Date Type Department Care Team (Late st Contact Info) Description 07/03/2002 Outpatient Historical Екатерина Malone MD [address] [place] [phone] Social History Tobacco Use Types Packs/Day Years Used Date Smoking Tobacco: Never Assessed Comments Unknown Sex and Gender Information Value Date Recorded Sex Assigned at Not on file 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
--- OUTSIDE RECORDS SUMMARY | 2025-09-25 08:25 | XMS_ITS | Encounter Summary ---
Author Organization [facility] Address [address] [place] [address] Care Team Providers Care Pinion And Wheel Truer Name Role Phone Rico Muñiz MD, Sharan Jaime Primary Care Provider Encounter Details Date Type Department Care Team (Latest Contact Info) Description 07/06/2003 Outpatient Historical [facility] 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
--- OUTSIDE RECORDS SUMMARY | 2025-09-25 08:25 | XMS_ITS | Encounter Summary ---
Author Organization [facility] Address [address] [place] [address] Care Team Providers Care Nursing Education Specialist Name Role Phone Rico Muñiz MD, Sharan Jaime Primary Care Provider Encounter Details Date Type Department Care Team (Latest Contact Info) Description 03/09/2003 Outpatient Historical [facility] 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
--- OUTSIDE RECORDS SUMMARY | 2025-09-25 08:25 | XMS_ITS | Encounter Summary ---
Author Organization [facility] Address [address] [place] [address] Care Team Providers Care Employee Service Officer Name Role Phone Rico Muñiz MD, Sharan Jaime Primary Care Provider Encounter Details Date Type Department Care Team (Latest Contact Info) Description 06/26/2003 Outpatient Historical [facility]-Faisal Lopez [place] [place] [address] Serge Arrington MD [address] [place] [address] HYPERTENSION NOS (Primary Dx); Routine medical exam Social History Tobacco Use Types Packs/Day Years Used Date Smoking Tobacco: Never Assessed Comments Unknown Sex and Gender Information Value Date Recorded Sex Assigned at Not on file 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
--- OUTSIDE RECORDS SUMMARY | 2025-09-25 08:25 | XMS_ITS | Encounter Summary ---
Author Organization [facility] Address [address] [place] [address] Care Team Providers Care Pollution Control Engineer Name Role Phone Rico Muñiz MD, Sharan Jaime Primary Care Provider Encounter Details Date Type Department Care Team (Latest Contact Info) Description 02/25/1999 Outpatient Historical [facility] Sharan Gómez Jr., MD [address] [place] [address] Dietary surveil/personnel counselor (Primary Dx) Social History Tobacco Use Types Packs/Day Years Used Date Smoking Tobacco: Never Assessed Comments Unknown Sex and Gender Information Value Date Recorded Sex Assigned at Not on file 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
--- OUTSIDE RECORDS SUMMARY | 2025-09-25 08:25 | XMS_ITS | Encounter Summary ---
Author Organization [facility] Address [address] [place] [address] Care Team Providers Care Tailer Off Name Role Phone Rico Muñiz MD, Sharan Jaime Primary Care Provider Encounter Details Date Type Department Care Team (Latest Contact Info) Description 11/05/2006 Outpatient Historical [facility] Int Luis AFaisal Lopez [place] [place] [address] Serge Arrington MD [address] [place] [address] Mitral Valve Disorder (Primary Dx); Unspecified Essential Hypertension; Other and Unspecified Hyperlipidemia Social History Tobacco Use Types Packs/Day Years Used Date Smoking Tobacco: Never Assessed Comments Unknown Sex and Gender Information Value Date Recorded Sex Assigned at Not on file Legal 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
--- OUTSIDE RECORDS SUMMARY | 2025-09-25 08:25 | XMS_ITS | Data Portability ---
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 [email or web address] Not available 08/17/2025 14:38:16 Plan of Treatment Reminders Order Date Submit Date Provider Last Modified By Organization Details Last Modified Time Details Appointments [facility] VISIT 2024 08:50A M Lyn Marmolejo MD Not available Not available Not available Lab PT/INR 2024 025 [facility] ([facility]), [address] [place], [address], 09/17/2025 13:36:28 CMP, serum or plasma - ORDERS FROM [facility] 2024 025 [place] [facility], [address] [place] [address], [address], 09/09/2025 10:43:32 PT/INR 2024 025 [facility] ([facility]), [address] [place], [address], 09/02/2025 13:34:27 protein electro phoresi s panel, serum or plasma 2024 [facility], [address] [facility] [address], [address], [place], [address], 08/20/2025 00:38:16 vitamin B12, serum 2024 [facility], [address] [facility], [place], [address], 08/20/2025 00:38:18 mma (methyl malonic acid), serum 2024 [facility], [address] [address], [address], [place], [address], 08/20/2025 00:38:15 CBC 2024 [facility], [address] [place] [address], [address], 08/17/2025 15:57:00 unliste d lab - periphe ral blood smear review 2024 [facility], [address] [facility] [facility] [address], [address], [place], [address], 08/18/2025 15:11:08 PT/INR 2024 [facility] ([facility]), [address] [place], [address], 08/17/2025 15:57:14 PTH (parath yroid hormone ), intact + calcium , serum or plasma 2024 [facility], [address] [place] [address] [address], [address], [place], [address], 08/20/2025 00:38:16 thyrotr opin, QN, serum or plasma 2024 [place] [facility], [address] [address], [place], [address], 08/17/2025 16:04:05 T4, free, serum 2024 [place] [facility], [address], [address] [place], [address], 08/20/2025 00:38:17 PT/INR 2024 025 [facility] ([facility]), [address] [place], [address], 08/07/2025 11:56:37 Referral None recorde d. Procedures None recorde d. Surgeries None recorde d. Imaging US, echocar diogram , transth oracic, complet e, w/ color flow [facility], [address] [place] [address], [address], 08/24/2025 09:16:34 Medication Orders lorazep am 0.5 mg tablet 2024 [place] [facility], [address] [place] [address], [address], 08/18/2025 14:21:51 Patient TargetsNo targets recorded. Patient Instructions Encounter Date Encounter Id Patient Instructions Last Modified By Organization Details Last Modified Time 08/17/2025 [id number] Folic Acid Not available 07/30 14:47:55 Reason for Referral None Reported. Results Created Date Observation Date Name Description Value Unit Range Abnormal Flag Note LastModifiedBy Organization Detail LastModifiedTime 07/09/2007/09/2025 PT/IN R Protime 34.6 Not Available [facility]) [address] [place] [address], [address], 07/09/2025 13:44:17 07/09/20 25 07/09/2025 PT/IN R INR 2.9 Not Available [facility]) [address] [place], [address], 07/09/2025 13:44:17 07/14/2007/14/2025 URINA LYSIS WITH MICRO color YELLOW Not Available [facility] [address] [facility] [address], [place], [address], 07/14/2025 14:52:32 07/14/2007/14/2025 URINA LYSIS WITH MICRO clarity CLEAR Not Available [facility] [address] [facility] [address], [place], [address], 07/14/2025 14:52:32 07/14/2007/14/2025 URINA LYSIS WITH MICRO glu NEGATI VE Not Available [facility] [address] [facility] [address], [place], [address], 07/14/2025 14:52:32 07/14/20 25 07/14/2025 URINA LYSIS WITH MICRO bili NEGATI VE Not Available [facility] [address] [facility] [address], [place], [address], 07/14/2025 14:52:32 07/14/20 25 07/14/2025 URINA LYSIS WITH MICRO ket NEGATI VE Not Available [facility] [address] [facility] [address], [place], [address], 07/14/2025 14:52:32 07/14/20 25 07/14/2025 URINA LYSIS WITH MICRO S.g 1.010 1.005- 1.025 Not Available [facility] [address] [facility] [address], [place], [address], 07/14/2025 14:52:32 07/14/20 25 07/14/2025 URINA LYSIS WITH MICRO pH 5.0 5.0-7. 0 Not Available [facility] [address] [facility] 1, [place], [address], 07/14/2025 14:52:32 07/14/20 25 07/14/2025 URINA LYSIS WITH MICRO pro NEGATI VE Not Available [facility] [address] [address], [place], [address], 07/14/2025 14:52:32 07/14/20 25 07/14/2025 URINA LYSIS WITH MICRO uro 0.2 E.U./D L Not Available [facility] [address], [place], [address], 07/14/2025 14:52:32 07/14/20 25 07/14/2025 URINA LYSIS WITH MICRO nit NEGATI VE Not Available [facility] [address], [place], [address], 07/14/2025 14:52:32 07/14/20 25 07/14/2025 URINA LYSIS WITH MICRO blo NEGATI VE Not Available [facility] [address], [place], [address], 07/14/2025 14:52:32 07/14/20 25 07/14/2025 URINA LYSIS WITH MICRO jose elias NEGATI VE Not Available [facility] [address], [place], [address], 07/14/2025 14:52:32 07/14/20 25 07/14/2025 URINA LYSIS WITH MICRO WBC 0-1 abnormal Not Available [facility] [address], [place], [address], 07/14/2025 14:52:32 07/14/20 25 07/14/2025 URINA LYSIS WITH MICRO RBC NEGATI VE Not Available [facility] [address], [place], [address], 07/14/2025 14:52:32 07/14/20 25 07/14/2025 URINA LYSIS WITH MICRO epi cells 1-2 abnormal Not Available [facility] [address] [facility] [address], [place], [address], 07/14/2025 14:52:32 07/14/20 25 07/14/2025 URINA LYSIS WITH MICRO bacteria 1-2 HYALIN E CAST abnormal Not Available [facility] [address] [facility] [address], [place], [address], 07/14/2025 14:52:32 07/14/20 25 07/14/2025 URINA LYSIS WITH MICRO other NEG Not Available [facility] [address] [facility] [address], [place], [address], 07/14/2025 14:52:32 07/14/20 25 07/16/2025 CULTU RE, URINE , ROUTI NE culture, urine, routine SEE NOTE CULTU RE, URINE , ROUTI NE Micro Numbe r: [id number] Test Statu s: Final Speci men Sourc e: Urine Speci men Quali ty: Adequ ate Resul t: No Growt h Not Available [facility] [address] [address] [place], [address], 07/16/2025 02:51:13 07/17/2007/17/2025 PT/IN R Protime 34.4 Not Available [facility] ([facility]) [address] [place], [address], 07/16/2025 12:07:15 07/17/2007/17/2025 PT/IN R INR 2.9 Not Available [facility] ([facility]) [address] [place], [address], 07/16/2025 12:07:15 07/23/2007/23/2025 PT/IN R Protime 47.0 Not Available [facility] ([facility]) [address] [place], [address], 07/23/2025 11:36:06 07/23/2007/23/2025 PT/IN R INR 3.9 Not Available [facility] ([facility]) [address] [place], [address], 07/23/2025 11:36:06 07/30/2007/30/2025 PT/IN R Protime 30.2 Not Available [facility] ([facility]) [address] [place], [address], 07/30/2025 11:33:15 07/30/2007/30/2025 PT/IN R INR 2.5 Not Available [facility] ([facility]) [address] [place], [address], 07/30/2025 11:33:15 08/07/2008/07/2025 PT/IN R Protime 26.3 Not Available [facility] ([facility]) [address] [place], [address], 08/07/2025 11:40:14 08/07/20 25 08/07/2025 PT/IN R INR 2.2 Not Available [facility] ([facility]) [address] [place], [address], 08/07/2025 11:40:14 08/17/20 25 08/17/2025 CBC WBC 6.3 x10 4.0-10 .5 Not Available [facility] [address] [place] [address], [address], 08/17/2025 15:57:00 08/17/20 25 08/17/2025 CBC RBC 3.45 x10 3.50-5 .50 low Not Available [facility] [address] [facility] 1, [place], [address], 08/17/2025 15:57:00 08/17/20 25 08/17/2025 CBC HGB 12.4 g/dL 12.0-1 6.0 Not Available [facility] [address] [facility], [place], [address], 08/17/2025 15:57:00 08/17/20 25 08/17/2025 CBC HCT 37.7 % 37.0-4 7.0 Not Available [facility] [address] [facility] 1, [place], [address], 08/17/2025 15:57:00 08/17/2008/17/2025 CBC MCV 109.2 fL 80.0-9 9.9 high Not Available [facility] [address] [facility] 1, [place], [address], 08/17/2025 15:57:00 08/17/2008/17/2025 CBC MCH 36.0 pg 27.0-3 2.0 high Not Available [facility] [address] [facility] 1, [place], [address], 08/17/2025 15:57:00 08/17/20 25 08/17/2025 CBC MCHC 32.9 g/dL 32.0-3 6.0 Not Available [facility] [address] [facility] 1, [place], [address], 08/17/2025 15:57:00 08/17/20 25 08/17/2025 CBC RDW 12.7 % 11.5-1 4.5 Not Available [facility] [address] [facility] 1, [place], [address], 08/17/2025 15:57:00 08/17/20 25 08/17/2025 CBC plt 239.0 x10 140.0- 451.0 Not Available [facility] [address] [facility] 1, [place], [address], 08/17/2025 15:57:00 08/17/20 25 08/17/2025 CBC lymphocytes % 27.7 % 20.0-5 0.0 Not Available [facility] [address] [facility] 1, [place], [address], 08/17/2025 15:57:00 08/17/20 25 08/17/2025 CBC granulcytes % 56.9 % 30.0-7 0.0 Not Available [facility] [address] [facility] 1, [place], [address], 08/17/2025 15:57:00 08/17/20 25 08/17/2025 CBC monocytes % 10.1 % 2.0-16 .0 Not Available [facility] [address] [facility] 1, [place], [address], 08/17/2025 15:57:00 08/17/20 25 08/17/2025 CBC granulcytes# 3.6 x10 Not Cyndi ilable [facility] [address] [facility] 1, [place], [address], 08/17/2025 15:57:00 08/17/20 25 08/17/2025 CBC lymphocytes # 1.8 x10 Not Available [facility] [address] [facility] 1, [place], [address], 08/17/2025 15:57:00 08/17/20 25 08/17/2025 CBC monocytes # 0.6 x10 Not Avai lable [facility] [address] [facility] 1, [place], [address], 08/17/2025 15:57:00 08/17/20 25 08/17/2025 TSH TSH 0.81 uIU/m L 0.49-3 .82 Not Available [facility] [address] [facility] 1, [place], [address], 08/17/2025 16:04:05 08/17/20 25 08/18/2025 PERIP HERAL BLOOD SMEAR REVIE W peripheral blood smear review Macro cytos is 1 + Ovalo cytes 1 + Polyc hroma mikhail 1 + Revie w of the perip heral smear revea ls adequ ate numbe rs of plate lets. Revie w of perip heral smear confi jace autom ated resul ts. Not Available [facility] [address] [place], [address], 08/18/2025 15:11:08 08/17/20 25 08/19/2025 METHY LMALO [...] t, parti cular ly early in pregn jsae. Undia gnose d mater nal vitam in [...] 1 nmol/ L Not Available [facility] [address] [place], [place] [address], [address], 08/20/2025 00:38:15 08/17/20 25 08/19/2025 METHY LMALO [...] have been deter mined by [facility]. It has not been clear ed or appro shiela by the FDA. This assay has been valid ated pursu ant to the CLIA regul ation s and is used for clini luisito purpo ses. Not Available [facility] [address] [address] [place], [address], 08/20/2025 00:38:15 08/17/2008/19/2025 PROTE IN, TOTAL AND PROTE IN ELECT ROPHO RESIS W/ REFL [place] protein, total 7.1 g/dL 6.1-8. 1 normal Not Available [facility] [address] [place], [address], 08/20/2025 00:38:16 08/17/20 25 08/19/2025 PROTE IN, TOTAL AND PROTE IN ELECT ROPHO RESIS W/ REFL [place] albumin 4.5 g/dL 3.8-4. 8 normal Not Available [address], [address], 08/20/2025 00:38:16 08/17/20 25 08/19/2025 PROTE IN, TOTAL AND PROTE IN ELECT ROPHO RESIS W/ REFL [place] alpha 1 globulin 0.3 g/dL 0.2-0. 3 normal Not Available [address], [address], 08/20/2025 00:38:16 08/17/20 25 08/19/2025 PROTE IN, TOTAL AND PROTE IN ELECT ROPHO RESIS W/ REFL [place] alpha 2 globulin 0.5 g/dL 0.5-0. 9 normal Not Available [address], [address], 08/20/2025 00:38:16 08/17/20 25 08/19/2025 PROTE IN, TOTAL AND PROTE IN ELECT ROPHO RESIS W/ REFL [place] beta 1 globulin 0.4 g/dL 0.4-0. 6 normal Not Available [address], [address], 08/20/2025 00:38:16 08/17/20 25 08/19/2025 PROTE IN, TOTAL AND PROTE IN ELECT ROPHO RESIS W/ REFL [place] beta 2 globulin 0.3 g/dL 0.2-0. 5 normal Not Available [address], [address], 08/20/2025 00:38:16 08/17/20 25 08/19/2025 PROTE IN, TOTAL AND PROTE IN ELECT ROPHO RESIS W/ REFL [place] gamma globulin 1.1 g/dL 0.8-1. 7 normal Not Available [address], [address], 08/20/2025 00:38:16 08/17/20 25 08/19/2025 PROTE IN, TOTAL AND PROTE IN ELECT ROPHO RESIS W/ REFL [place] interpretati on No restr icted band (M-sp mera) seen. Not Available [address], [address], 08/20/2025 00:38:16 08/17/20 25 08/19/2025 PTH, INTAC [...] or Low Joie l High Not Available [facility] [address], [address], 08/20/2025 00:38:16 08/17/20 25 08/19/2025 PTH, INTAC T (ICMA ) AND IONIZ ED CALCI UM calcium 10.2 mg/dL 8.6-10 .4 normal Not Available [address], [address], 08/20/2025 00:38:16 08/17/20 25 08/19/2025 PTH, INTAC T (ICMA ) AND IONIZ ED CALCI UM calcium, ionized 5.6 mg/dL 4.7-5. 5 high Not Available [facility] [address], [address], 08/20/2025 00:38:16 08/17/20 25 08/19/2025 T4, FREE T4, free 1.9 NG/dL 0.8-1. 8 high Not Available [address], [address], 08/20/2025 00:38:17 08/17/20 25 08/19/2025 VITAM IN B12 vitamin B12 >2000 pg/mL 200-11 00 high Not Available [facility] [address] [place], [address], 08/20/2025 00:38:18 08/17/20 25 08/17/2025 PT/IN R Protime 21.5 Not Available [facility] ([facility]) [address] [place], [address], 08/17/2025 14:33:48 08/17/2008/17/2025 PT/IN R INR 1.8 Not Available [facility] ([facility]) [address] [place] [address], [address], 08/17/2025 14:33:48 09/02/20 25 09/02/2025 PT/IN R Protime 29.0 Not Available [facility] ([facility]) [address] [place] [address], [address], 09/02/2025 13:17:30 09/02/20 25 09/02/2025 PT/IN R INR 2.4 Not Available [facility] ([facility]) [address] [place] [address], [address], 09/02/2025 13:17:30 09/09/20 25 09/09/2025 CMP (FEMA LE) glucose 93.0 mg/dL 60.0-9 9.0 Not Available [facility] [address], [address], 09/09/2025 10:43:31 09/09/20 25 09/09/2025 CMP (FEMA LE) BUN (blood urea nitrogen) 20.0 mg/dL 10.0-2 6.0 Not Available [facility] [address] [facility] 1, [place], [address], 09/09/2025 10:43:31 09/09/20 25 09/09/2025 CMP (FEMA LE) creatinine (serum) 0.9 mg/dL 0.4-1. 5 Not Available [facility] [address] [facility], [place], [address], 09/09/2025 10:43:31 09/09/20 25 09/09/2025 CMP (FEMA LE) BUN/creatini ne ratio 22.22 ratio Not Available [facility] [address] [facility], [place], [address], 09/09/2025 10:43:31 09/09/20 25 09/09/2025 CMP (FEMA LE) eGFR calculated 64.9 Not Available [facility] [address] [facility], [place], [address], 09/09/2025 10:43:31 09/09/20 25 09/09/2025 CMP (FEMA LE) total protein 7.5 g/dL 6.0-8. 5 Not Available [facility] [address] [facility], [place], [address], 09/09/2025 10:43:31 09/09/20 25 09/09/2025 CMP (FEMA LE) total bilirubin 1.1 mg/dL 0.2-1. 3 Not Available [facility] [address] [facility], [place], [address], 09/09/2025 10:43:31 09/09/20 25 09/09/2025 CMP (FEMA LE) albumin 5.0 g/dL 3.5-5. 5 Not Available [facility] [address] [facility], [place], [address], 09/09/2025 10:43:31 09/09/20 25 09/09/2025 CMP (FEMA LE) globulin 2.5 calc Not Available [facility] [address] [facility] 1, [place], [address], 09/09/2025 10:43:31 09/09/20 25 09/09/2025 CMP (FEMA LE) AST (SGOT) 35.0 U/L 0.0-46 .0 Not Available [facility] [address] [place] [facility] 1, [place], [address], 09/09/2025 10:43:31 09/09/20 25 09/09/2025 CMP (FEMA LE) altv (SGPT) 17.0 U/L 13.0-6 9.0 normal Not Available [facility] [address] [facility] 1, [place], [address], 09/09/2025 10:43:31 09/09/20 25 09/09/2025 CMP (FEMA LE) A/G ratio 2.0 ratio Not Available [facility] [address] [facility], [place], [address], 09/09/2025 10:43:31 09/09/20 25 09/09/2025 CMP (FEMA LE) ALP phos 77.0 U/L 30.0-1 40.0 normal Not Available [facility] [address] [facility], [place], [address], 09/09/2025 10:43:31 09/09/20 25 09/09/2025 CMP (FEMA LE) calcium 10.4 mg/dL 8.4-10 .5 Not Available [facility] [address] [place] [facility] 1, [place], [address], 09/09/2025 10:43:31 09/09/20 25 09/09/2025 CMP (FEMA LE) sodium 139.0 mmol/ L 136.0- 145.0 Not Available [facility] [address] [facility] 1, [place], [address], 09/09/2025 10:43:31 09/09/20 25 09/09/2025 CMP (FEMA LE) potassium 4.2 mmol/ L 3.5-5. 1 Not Available [facility] [address] [facility] 1, [place], [address], 09/09/2025 10:43:31 09/09/20 25 09/09/2025 CMP (FEMA LE) chloride 105.0 mmol/ L 98.0-1 10.0 normal Not Available [facility] [address] [address], [place], [address], 09/09/2025 10:43:31 09/09/20 25 09/09/2025 CMP (FEMA LE) C02 28.0 mmol/ L 22.0-3 1.0 Not Available [facility] [address] [address], [place], [address], 09/09/2025 10:43:31 09/09/20 25 09/09/2025 CMP (FEMA LE) anion gap 6.0 calc Not Available [facility] [address] [address], [place], [address], 09/09/2025 10:43:31 09/09/20 25 09/09/2025 CMP (FEMA LE) osmolality 289.3 calc Not Available [facility] [address], [address], 09/09/2025 10:43:31 09/17/20 25 09/17/2025 PT/IN R Protime 27.5 Not Available [facility] ([facility]) [address] [place], [address], 09/17/2025 13:23:29 09/17/20 25 09/17/2025 PT/IN R INR 2.3 Not Available [facility] ([facility]) [address] [place], [address], 09/17/2025 13:23:29 08/05/20 25 08/04/2025 XR, cervi luisito spine , 2 or 3 view No observ ation record ed. [facility] [address] [place], [address], 08/07/2025 13:25:55 08/05/20 25 08/04/2025 XR, shoul vito, 2 or more view No observ ation record ed. [facility] [address] [place], [address], 08/07/2025 13:25:55 09/09/20 25 09/08/2025 , [facility] ardio gram, trans thora cic, compl ete, w/ color flow No observ ation record ed. [facility] [address] [place], [address], 09/11/2025 09:19:21 09/15/20 25 09/15/2025 MAMMO , scree ilya, digit al, bilat eral No observ ation record ed. [email or web address] [place] [address] [address] [place], [address], 09/16/2025 16:09:54 Result Notes None recorded. Problems Name Problem SNOMED Code Status Onset Date Resolution Date Notes Provider Name and Address Organization Details Recorded Time Depressi ve disorder 54139391 Completed 202010/14/2021 Depressi on - Status is Inactive ; 10/14/20 11:08AM by Maryellen Marmolejo PA-C, Annotati on/Adden dum; Promoted ; acuity set as *; FELISHA hamilton, DAI - [facility] 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 5 07:55:28 Gastroes ophageal reflux disease 523020436 Active 2022 FELISHA hamilton, [facility] 5 07:55:28 Fracture of upper end of humerus 524536103 Completed 202201/02/2025 CLOSED FRACTURE OF PROXIMAL END OF RIGHT HUMERUS, SEQUELA FELISHA hamilton, [facility] 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 07:56:22 Atrial fibrilla tion 29364215 Active 2022 FELISHA hamilton, [facility] 3 14:45:05 Coronary atherosc lerosis 066931964 Active 2022 bare metal stents to circ and LAD 2011 FELISHA hamilton, [facility] 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 3 14:45:59 Anxiety 60856304 Active 2022 FELISHA DESIR null, [facility] 3 14:46:54 Viral hepatiti s C 05753096 Active 2022 FELISHA DESIR null, [facility] 5 07:55:28 Moderate recurren t major depressi on 28884233 Active 2023 FELISHA DESIR null, [facility] 5 07:55:28 Need for personal care assistan [id number] 160430 Active 2023 FELISHA DESIR null, [facility] 5 07:55:28 Frail elderly 685684893 Active 2023 FELISHA DESIR null, [facility] 5 07:55:28 Seasonal allergic rhinitis 868494630 Active 2023 FELISHA DESIR null, [facility] 5 07:55:28 Chronic pain 09753491 Active 2023 FELISHA DESIR null, [facility] 5 07:55:28 Dementia [id number] Active 2023 FELISHA DESIR null, [facility] 5 07:55:28 Constipa tion 55708556 Active 2023 FELISHA DESIR null, [facility] 5 07:55:44 Hyperlip idemia 12440052 Active 2024 FELISHA DESIR null, [facility] 5 07:59:38 Occult blood detected in feces 51179083 Active 2024 FELISHA hamilton [facility] 5 09:13:35 Mean corpuscu lar volume above referenc e range 441524345 Active 2024 FELISHA hamilton [facility] 5 09:14:07 Hypercal cemia 90493037 Active 2024 FELISHA DESIR [facility] [facility] 5 10:07:49 Vitamin D deficien cy 90803993 Active 2024 Lyn Marmolejo MD [address] [place] [address], [phone] 5, [facility] 5 12:54:55 Hyperpar athyroid ism 93873806 Active 2024 Lyn Marmolejo MD [address] [place] [address], [phone] 5, [facility] 5 12:54:56 Dysuria 30705543 Active 2024 Dotty Celis [facility] 14:08:08 Problem Notes None recorded. Procedures Surgical History Date Name Laterality Status Provider Name and Address Organization Details Recorded Time 2024 Most Recent Mammogram completed FELISHA DESIR [facility], [facility] 5 16:09:39 2024 esophagogastroduodenoscopy completed YANELIS DESIR [facility], [facility] 5 12:23:16 2024 colonoscopy completed FELISHA DESIR [facility], [facility] 5 10:20:11 2023 esophagogastroduodenoscopy completed KIARA DUCKWORTH [facility], [facility] 4 12:40:14 2023 colonoscopy completed Lyn Marmolejo MD [address] [place] [address], [phone] 5, [facility], [facility] 5 10:19:30 cholecystectomy completed [facility], [facility] 3 14:48:40 replacement of mitral valve complete d [facility], [facility] 3 14:49:22 section completed [facility], [facility] 3 15:14:43 Imaging Results None recorded. Procedure Notes None recorded. Medical Equipment None Reported. Allergies Allergen ID Allergen Name Allergen Category Reaction Reaction Severity Criticality Documentation Date Start Date Code Code System Note Provider Name and Address Organization Details Recorded Time 1376 morphine medicatio n Not available Not available Not available 02/07/2023 7052 RxNorm Dotty Vimal [facility] [place], [facility] 3 10:45:47 1377 diltiazem Not available Not available Not available Not available 02/07/2023 3443 RxNorm Dotty Celis [facility] 3 10:45:54 4552 Bactrim medicatio n other severe high 04/17/2023 19275 9 RxNorm do not give d/t couma din Lola Vidal [facility], [facility] 4 13:34:33 67991 diltiazem hydrochlo ride medicatio n Not available Not available Not available 05/26/2023 1 RxNorm Comme nt: Recor ded 12/29 7:56A M by Yanelis Kitchen on, [employer], 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 ; Promo talib; Signi fican ce: *; Reaso n: Drug aller gy; ; FELISHA DESIR [facility] 3 12:26:44 31765 morphine sulfate medicatio n Not available Not available Not available 05/26/2023 69830 RxNorm Comme nt: Recor ded 12/29 7:56A M by Yanelis Kitchen on, [employer], 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 ; Debra mayers; Trey bernal ce: *; Reaso n: Drug aller gy; ; FELISHA DESIR null, [place] - [facility] 3 12:26:48 Medications Name [...] THSC Levothyro xine Sodium daily 06/08 completed 47523; Recorded 01/09/20 6:06PM by Shirley Quevedo (Authori [...] Last Updated DateTime 154.94 cm 28.9 kg/m2 47917.6 3 g 97.6 [degF] 76 /min 95 % 138/84 mm[Hg] Dotty Celis [facility], [facility] 13:43:55 Social History Question Answer Notes LastModified by Organizat ion Details LastModified Time Tobacco Smoking Status Former Smoker FELISHA DESIR [facility] 04/17/2023 14:48:01 What Was The Date Of Your Most Recent Tobacco Screening? 05/27/2025 [email or web address] Information not available 05/27/2025 Sex: Unknown Functional Status Question Answer Note LastModified by Organizat ion Details LastModified Time Do you use any illicit or recreational drugs? No [email or web address] Information not available 04/17/2023 Do you or have you ever used any other forms of tobacco or nicotine? No [email or web address] Information not available 06/29/2023 What is your level of alcohol consumption? None [email or web address] Information not available 04/17/2023 Mental Status None [...] Influenza, MDCK, quadrivalent, PF 2 [facility] 08:38:58 COVID-19, mRNA, LNP-S, PF, 100 mcg/0.5mL dose or 50 mcg/0.25mL dose 1 [facility] 10/10/2024 08:38:58 COVID-19, mRNA, LNP-S, PF, 100 mcg/0.5mL dose or 50 mcg/0.25mL dose 1 [facility] 10/10/2024 08:38:58 COVID-19, mRNA, LNP-S, PF, 100 mcg/0.5mL dose or 50 mcg/0.25mL dose 2 [facility] 10/10/2024 08:38:58 Pneumococcal conjugate PCV20, polysaccharide [id number] conjugate, adjuvant, PF 3 completed FELISHA hamilton [facility] 10/10/2024 08:38:58 COVID-19, mRNA, LNP-S, bivalent, PF, 50 mcg/0.5 mL or 25mcg/0.25 mL dose 3 completed FELISHA hamilton, [facility] 10/10/2024 08:38:58 pneumococcal polysaccharide PPV23 3 completed FELISHA DESIR null, [facility] 04/17/2023 12:02:00 Tdap 1 completed FELISHA DESIR null, [facility] 10/10/2024 08:38:58 Influenza, split virus, trivalent, PF 3 completed FELISHA DESIR null, [facility] 04/17/2023 12:02:00 influenza, split (incl. purified surface antigen) 0 completed FELISHA hamilton, [facility] 04/17/2023 12:02:00 Hep A, adult 1 completed FELISHA DESIR alfonso, [facility] 10/10/2024 08:38:58 Hep A, adult 9 completed FELISHA DESIR alfonso, [facility] 10/10/2024 08:38:58 Influenza, split virus, quadrivalent, PF 1 completed FELISHA DESIR null, [facility] 10/10/2024 08:38:58 Influenza, split virus, quadrivalent, PF 9 completed FELISHA DESIR null, [facility] 10/10/2024 08:38:58 Influenza, MDCK, trivalent, PF 4 completed FELISHA DESIR null, [facility] 10/10/2024 08:38:58 Influenza, MDCK, quadrivalent, preservative 3 completed FELISHA DESIR null, [facility] 10/10/2024 08:38:58 pneumococcal polysaccharide PPV23 8 completed Lola hamilton, [facility] 07/02/2024 08:41:52 Influenza, split virus, quadrivalent, PF 8 completed Lola hamilton, [facility] 07/02/2024 08:41:52 zoster recombinant 3 completed Lola hamilton, [facility] 07/02/2024 14:52:40 COVID-19, mRNA, LNP-S, PF, 50 mcg/0.5 mL 4 completed FELISHA hamilton, [facility] 10/10/2024 08:38:58 Influenza, MDCK, trivalent, preservative 4 completed FELISHA hamilton, [facility] 10/10/2024 08:38:58 Past Encounters Encounter ID Performer Location Encounter Start Date Encounter Closed Date Diagnosis/Indication Diagnosis SNOMED-CT Code Diagnosis ICD10 Code Diagnosis IMO Codes Diagnosis Note [id number] Lyn Marmolejo MD [facility] ([facility]) [address] [place] [address] 46999-863 5 02/07/2023 10:19:57 02/14/2023 10:45:49 Strain of thoracic region 82667518 S29.019A use your prn pain mediation. call if worsening. [id number] Lyn Marmolejo MD [facility] ([facility]) [address] [place] [address] 98312-592 5 02/14/2023 10:43:17 02/15/2023 17:26:16 Chronic low back pain 368219949 M54.50 [id number] Constantino Merlos DO [facility] ([facility]) [address] [place] [address] 67269-268 5 02/21/2023 09:19:45 02/21/2023 11:05:37 Nasal congestion 90417554 R09.81 Acute sinusitis 21942847 J01.90 1 wk of symtoms, wrosening for last 3 days. covid and flu A and B negative today. will start abx due to comorbidit ies and wornseing symptoms. Return to office with no improvemen t or any problems. Go to ER with severe worsening or severe problems. [id number] Lyn Marmolejo MD [facility] ([facility]) [address] [place] [address] 06221-234 5 04/17/2023 08:30:45 04/26/2023 09:32:24 Diabetes mellitus 81891803 E11.59 Hypothyroidism 64940983 E03.9 Female uri nary stress incontinence 55486443 N39.3 Not interested in surgical management at this time Frail elderly 389032240 R54 Need for [facility] care assistance [id number] 2786020 Z74.1 Dementia 40908008 F03.90 Coronary atherosclerosis 471665671 I25.152 [id number] Lyn Marmolejo MD [facility] ([facility]) [address] [place] [address] 66440-647 5 06/08/2023 12:20:01 06/08/2023 13:17:48 Neck pain 40269959 M54.2 [id number] Lyn Marmolejo MD [facility] ([facility]) [address] [place] [address] 72756-786 5 06/29/2023 08:43:26 07/09/2023 14:07:10 Benign essential hypertension 7586934 I10 Atrial fibrillation 4943 6004 I48.91 Hypothyroidism 40156213 E03.9 Coronary atherosclerosis 728496896 I25.439 [id number] Lyn Marmolejo MD [facility] ([facility]) [address] [place] [address] 50307-190 5 07/17/2023 15:47:18 08/01/2023 10:19:07 [id number] Lyn Marmolejo MD [facility] ([facility]) [address] [place] [address] 25618-271 5 07/18/2023 11:59:39 07/18/2023 15:46:29 Pruritic rash 55538428 L28.2 patch rash with scale left upper lateral backshe has no other rash patch etcfavorin g psoriasis. Acquired scoliosis 42333 6001 M41.9 [id number] Lyn Marmolejo MD [facility] ([facility]) [address] [place] [address] 85897-155 5 08/27/2023 13:38:26 09/03/2023 15:02:50 Atrial fibrillation 74599266 I48.91 [id number] Lyn Marmolejo MD [facility] ([facility]) [address] [place] [address] 02086-777 5 08/29/2023 11:48:52 08/29/2023 13:03:23 Hypothyroidism 28599496 E03.9 Type 2 brenda betes mellitus 11803646 E11.9 [id number] Lyn Marmolejo MD [facility] ([facility]) [address] [place] [address] 33500-790 5 09/25/2023 14:58:13 10/01/2023 11:08:35 Atrial fibrillation 18597104 I48.91 [id number] Lyn Marmolejo MD [facility] ([facility]) [address] [place] [address] 39745-713 5 09/28/2023 08:22:55 10/03/2023 10:36:00 Atrial fibrillation 98428461 I48.91 Hyperlipidemia 50030889 E78.00 Hypothyroidism 17924750 E03.9 Type 2 brenda betes mellitus 07188865 E11.9 Esophageal dysphagia 408 12146 R13.19 Cough 49156501 R05.9 [id number] Lyn Marmolejo MD [facility] ([facility]) [address] [place] [address] 00802-665 5 10/12/2023 09:31:01 10/12/2023 10:18:44 Benign essential hypertension 9170815 I10 [id number] SHARON GARZON [facility] ([facility]) [address] [place] [address] 23345-788 5 10/12/2023 13:42:39 10/18/2023 12:21:01 Dysuria 41433621 R30.0 Acute urin nhung tract infection 276379852 N39.0 [id number] Lyn Marmolejo MD [facility] ([facility]) [address] [place] [address] 48269-673 5 11/02/2023 11:29:05 11/06/2023 09:48:39 Atrial fibrillation 57996585 I48.91 [id number] Lyn Marmolejo MD [facility] ([facility]) [address] [place] [address] 26679-943 5 11/07/2023 09:01:58 11/07/2023 11:07:24 Dementia 54204548 F03.90 Atrial fibrillation 4943 6004 I48.91 Coronary atherosclerosis 273494469 I25.119 Hypothyroidism 73918727 E03.9 Hyperlipidemia 97856377 E78.00 Depressive disorder 3548 9007 F32.A will need med adjustment most likely. 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 [id number] Lyn Marmolejo MD [facility] ([facility]) [address] [place] [address] 78142-335 5 11/15/2023 14:44:57 11/19/2023 07:33:27 Atrial fibrillation 80178874 I48.91 [id number] Lyn Marmolejo MD [facility]) [address] [place] [address] 74286-723 5 11/20/2023 09:33:11 11/21/2023 13:21:39 Atrial fibrillation 76402447 I48.91 [id number] Lyn Marmolejo MD [facility] ([facility]) [address] [place] [address] 47166-956 5 11/27/2023 13:33:40 11/27/2023 14:57:35 Atrial fibrillation 85660332 I48.91 [id number] Lyn Marmolejo MD [facility] ([facility]) [address] [place] [address] 77104-681 5 12/11/2023 10:07:28 12/14/2023 15:19:27 Atrial fibrillation 72492736 I48.91 [id number] Lyn Marmolejo MD [facility] ([facility]) [address] [place] [address] 01047-633 5 12/25/2023 15:15:19 12/27/2023 12:08:25 Atrial fibrillation 16903016 I48.91 [id number] Lyn Marmolejo MD [facility] ([facility]) [address] [place] [address] 33057-088 5 12/28/2023 08:26:17 01/01/2024 08:43:00 Atrial fibrillation 29731477 I48.91 Hyperlipidemia 06017539 E78.00 Hypothyroidism 94155449 E03.9 History of mechanical prosthetic mitral valve replacement 780420737 Z95.2 Frail elderly 217812256 R54 Need for [facility] care assistance [id number] 9626175 Z74.1 [id number] Lyn Marmolejo MD [facility] ([facility]) [address] [place], [place] [address] 01/04/2024 10:25:22 01/09/2024 06:41:29 Atrial fibrillation 88681729 I48.91 [id number] LIA HERNANDEZ APRN [facility] ([facility]) [address] [place], [place] [address] 01/15/2024 12:59:04 01/16/2024 11:43:55 Dysuria 55600679 R30.0 Urine will be sent for culture Low back pain 084343939 M54.50 Instructed on exercises. Follow up for worsening [id number] Lyn Marmolejo MD [facility] ([facility]) [address] [place] [address] 24571-156 5 01/25/2024 10:56:45 01/28/2024 07:51:23 Atrial fibrillation 58888913 I48.91 [id number] Lyn Marmolejo MD [facility] ([facility]) [address] [place] [address] 98688-100 5 01/28/2024 13:26:01 01/28/2024 15:49:26 Cough 93244819 R05.9 Lightheadedness 86098051 8 R42 Atrial fibrillation 4943 6004 I48.91 History of mechanical prosthetic mitral valve replacement 478206791 Z95.2 Dementia 73079127 F03.90 [id number] Lyn Marmolejo MD [facility] ([facility]) [address] [place] [address] 06644-732 5 02/13/2024 12:03:53 02/15/2024 09:32:04 Dysuria 20108797 R30.0 [id number] Lyn Marmolejo MD [facility] ([facility]) [address] [place] [address] 95110-122 5 02/13/2024 12:14:40 02/15/2024 11:11:53 Hyperlipidemia 67684878 E78.00 Dysuria 98375384 R30.0 Impaired mobility 667081 05 Z74.09 [id number] Lyn Marmolejo MD [facility] ([facility]) [address] [place], [place] [address] 5 03/25/2024 12:47:12 03/28/2024 07:11:51 Atrial fibrillation 08355561 I48.91 [id number] Lyn Marmolejo MD [facility]) [address] [place], [place] 79[address]67[address]-204 5 03/25/2024 13:02:42 03/25/2024 14:26:32 Dysuria 98041200 R30.0 urine dip is normal will await micro. [id number] Lyn Marmolejo MD [facility] ([facility]) [address] [place] [address] 53865-142 5 04/04/2024 08:10:41 04/09/2024 09:06:52 Atrial fibrillation 29005741 I48.91 Depressive disorder 8350 9007 F32.A will need med adjustment most likely. awaiting more info Hyperlipidemia 29472163 E78.00 Hypothyroidism 63375474 E03.9 Dementia 92949559 F03.90 stable and without worrisome behaviors/ intrusive fears etc. [id number] Lyn Marmolejo MD [facility] ([facility]) [address] [place] [address] 66320-323 5 04/17/2024 11:27:00 05/14/2024 13:15:51 Atrial fibrillation 14083772 I48.91 [id number] Lyn Marmolejo MD [facility] ([facility]) [address] [place] [address] 51141-440 5 05/19/2024 12:53:57 05/21/2024 22:28:15 Atrial fibrillation 81568389 I48.91 [id number] Lyn Marmolejo MD [facility] ([facility]) [address] [place], [place] [address]67[address]-204 5 05/19/2024 13:28:05 05/20/2024 17:37:09 Constipation 18771698 K59.00 [id number] Lyn Marmolejo MD [facility] ([facility]) [address] [place], [place] [address] 5 05/22/2024 13:52:36 05/26/2024 08:53:22 Atrial fibrillation 30479659 I48.91 [id number] Lyn Marmolejo MD [facility] ([facility]) [address] [place], [place] [address] 5 05/27/2024 10:13:03 05/27/2024 15:56:07 Atrial fibrillation 87934803 I48.91 warfarin has been held for i bleeding will recheck today. History of mechanical prosthetic mitral valve replacement 115745855 Z95.2 Melena 3095660 K92.1 has resoled since holding warfarin [id number] Lyn Marmolejo MD [facility] ([facility]) [address] [place], [place] [address] 5 06/09/2024 14:51:03 06/11/2024 12:46:51 Atrial fibrillation 25264134 I48.91 warfarin has been held for i bleeding will recheck today. [id number] Lyn Marmolejo MD [facility] ([facility]) [address] [place], [place] [address]67[address]-204 5 07/04/2024 08:21:57 07/07/2024 13:50:59 Anxiety 14165680 F41.9 Depressive disorder 3548 9007 F32.A Hypothyroidism 41351126 E03.9 Chronic low back pain 27 1994738 M54.50 [id number] Lyn Marmolejo MD [facility] ([facility]) [address] [place] [address] 72065-880 5 08/07/2024 09:44:31 08/07/2024 13:32:53 Iron deficiency anemia 68479888 D50.9 Hypothyroidism 56162696 E03.9 Type 2 brenda betes mellitus 41276796 E11.9 Atrial fibrillation 4943 6004 I48.91 warfarin has been held for i bleeding will recheck today. [id number] Lyn Marmolejo MD [facility] ([facility]) [address] [place], [place] [address]67[address]-204 5 08/14/2024 13:17:46 08/14/2024 13:53:26 Right flank pain 510457591 R10.9 has greatly improved. will inquire about her bm frequency. [id number] Lyn Marmolejo MD [facility] ([facility]) [address] [place], [place] [address] 5 08/15/2024 14:56:42 08/16/2024 23:09:29 Atrial fibrillation 83401453 I48.91 warfarin has been held for i bleeding will recheck today. [id number] Lyn Marmolejo MD [facility] ([facility]) [address] [place], [place] [address] 5 09/05/2024 15:29:03 09/08/2024 14:47:15 Atrial fibrillation 62852202 I48.91 warfarin has been held for i bleeding will recheck today. [id number] Lyn Marmolejo MD [facility] ([facility]) [address] [place], [place] [address] 5 09/22/2024 13:56:04 09/24/2024 23:01:26 Atrial fibrillation 21119793 I48.91 warfarin has been held for i bleeding will recheck today. [id number] Lyn Marmolejo MD [facility] ([facility]) [address] [place], [place] [address] 5 10/02/2024 09:54:39 10/04/2024 06:10:42 Atrial fibrillation 72988814 I48.91 warfarin has been held for i bleeding will recheck today. [id number] Constantino Merlos DO [facility] ([facility]) [address] [place], [place] [address]67[address]-204 5 10/06/2024 15:26:43 10/06/2024 16:30:28 Dysuria 58381018 R30.0 Acute urin nhung tract infection 674655862 N39.0 I reviewed UA results and discussed with pt. We will start antibiotic s. Pt will increase oral fluids and can use cranberry. Return to office with no improvemen t or any problems. Go to ER with severe worsening or severe problems.W e will obtain urine culture [id number] Lyn Marmoljeo MD [facility] ([facility]) [address] [place] [address] 14330-745 5 10/10/2024 08:00:57 10/27/2024 13:21:20 Anxiety 80728962 F41.9 Atrial fibrillation 4943 6004 I48.91 warfarin therapy Hyperlipidemia 96311298 E78.00 Hypothyroidism 98002677 E03.9 Disorder o f vitamin B12 935852037 E53.8 [id number] Lyn Marmolejo MD [facility] ([facility]) [address] [place], [place] [address] 5 10/28/2024 12:52:20 10/30/2024 11:20:46 Abdominal pain 39447852 R10.9 Chronic constipation 236 978069 K59.09 Warfarin m onitoring status 633069713 Z51.81 Vitamin B1 2 deficiency (non anemic) 21533705 E53.8 Iron deficiency 92144939 E61.1 [id number] Lyn Marmolejo MD [facility] ([facility]) [address] [place] [address] 43741-365 5 11/11/2024 09:45:45 11/11/2024 10:22:04 Fever 252602611 R50.9 COVID-19 331840515 U07.1 [id number] Lyn Marmolejo MD [facility] ([facility]) [address] [place] [address] 57406-550 5 11/13/2024 14:46:08 11/14/2024 12:19:12 History of mechanical prosthetic mitral valve replacement 569612122 Z95.2 [id number] Lyn Marmolejo MD [facility] ([facility]) [address] [place] [address] 62539-815 5 12/26/2024 14:59:56 12/29/2024 13:20:48 Atrial fibrillation 28340727 I48.91 warfarin therapy [id number] Lyn Marmolejo MD [facility] ([facility]) [address] [place] [address] 93954-189 5 01/02/2025 07:55:44 01/02/2025 16:44:05 Anxiety 17837431 F41.9 Atrial fibrillation 4943 6004 I48.91 warfarin therapy Benign ess ential hypertension 9502120 I10 Dementia 80502996 F03.90 stable and without worrisome behaviors/ intrusive fears etc. Frail elderly 741193754 R54 Hypothyroidism 04420473 E03.9 Moderate r ecurrent major depression 96551855 F33.1 Need for [facility] care assistance [id number] 6734030 Z74.1 Hyperlipidemia 47684053 E78.00 Gastroesop hageal reflux disease 227122301 K21.9 Constipation 03987749 K5 9.00 Disorder o f vitamin B12 934974081 E53.8 b-12 lab with next blood draw [id number] SHARON WICK [facility] ([facility]) [address] [place], [place] [address] 5 01/07/2025 11:17:05 01/07/2025 12:46:26 Gastroesophageal reflux disease 162083919 K21.9 Return to BID dosing of pantoprazo le. Avoid all tomato based foods, carbonated drinks. Follow up with PCP. RTC with any new or worsening symptoms. 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 [id number] Lyn Marmolejo MD [facility] ([facility]) [address] [place], [place] [address] 5 02/17/2025 12:58:21 03/09/2025 14:31:11 Dysuria 91855443 R30.0 87824 Black feces 505361572 K9 2.1 541405 d/c pepto bismol Epigastric pain 57479353 R10.13 11831 History of Helicobacter pylori infection 8629116595 5141664 Z86.19 5770209 [id number] Lyn Marmolejo MD [facility] ([facility]) [address] [place] [address] 32257-804 5 03/10/2025 13:39:29 03/11/2025 10:21:30 Atrial fibrillation 65779710 I48.91 warfarin therapy [id number] Lyn Marmolejo MD [facility] ([facility]) [address] [place] [address] 38301-541 5 03/16/2025 11:42:25 03/16/2025 15:49:30 Mean corpuscular volume above reference range 366190903 R71.8 [id number] Lyn Marmolejo MD [facility] ([facility]) [address] [place] [address] 40845-938 5 04/03/2025 08:43:13 04/07/2025 07:54:01 Atrial fibrillation 75143209 I48.91 warfarin therapy Benign ess ential hypertension 0459297 I10 Hyperlipidemia 21856304 E78.00 Hypothyroidism 47929828 E03.9 Iron defic iency anemia 15160099 D50.9 Difficulty walking 73550 2003 R26.2 38881 Does mobil ize using walker 871988447 Z99.89 [id number] Lyn Marmolejo MD [facility] ([facility]) [address] [place] [address] 18011-083 5 05/07/2025 11:08:19 05/08/2025 11:02:05 Atrial fibrillation 07872858 I48.91 warfarin therapy [id number] Lyn Marmolejo MD [facility] ([facility]) [address] [place] [address] 59918-930 5 05/18/2025 13:36:52 05/19/2025 13:07:58 Atrial fibrillation 91947812 I48.91 warfarin therapy [id number] SHARNO HARDIN [facility] ([facility]) [address] [place] [address] 56239-835 5 05/27/2025 10:23:37 05/27/2025 11:20:20 Abdominal mass 337458099 R19.00 [id number] Sent to ER for CT scan to r/o strangulat ed hernia to right inguinal region. Net Application Support Specialist heena mena pt. [id number] Lyn Marmolejo MD [facility] ([facility]) [address] [place] [address] 00822-003 5 06/05/2025 11:28:33 06/08/2025 12:35:39 Hypothyroidism 02867817 E03.9 Viral screening 34453605 4 Z11.59 1723883 Physical examination 588 0005 Z00.00 787347 Long-term current use of drug therapy 708078059 Z79.916 9205763 [id number] Lyn Marmolejo MD [facility] ([facility]) [address] [place], [place] [address] 06/11/2025 10:52:49 06/12/2025 12:43:36 Hypercalcemia 61679382 E83.52 [id number] Lyn Marmolejo MD [facility] ([facility]) [address] [place], [place] [address] 06/24/2025 12:18:01 06/30/2025 13:41:59 Hyperparathyroidism 87048986 E21.3 84157 corrected and ionized calcium are normalgfr 52 and stable Vitamin D deficiency 347 66121 E55.9 20248 [id number] Lyn Marmolejo MD [facility] ([facility]) [address] [place], [place] [address] 07/01/2025 10:24:23 07/02/2025 11:29:38 Atrial fibrillation 38108278 I48.91 warfarin therapy [id number] Lyn Marmolejo MD [facility] ([facility]) [address] [place] [address] 64428-622 5 07/03/2025 08:14:55 07/13/2025 10:06:37 Benign essential hypertension 7021489 I10 Coronary atherosclerosis 745626791 I25.119 Atrial fibrillation 4943 6004 I48.91 warfarin therapyd/c naproxen d/t hx of bleeding Hyperlipidemia 33444967 E78.00 Hypothyroidism 89270156 E03.9 Hyperparathyroidism 6699 9008 E21.3 03943 [id number] Lyn Marmolejo MD [facility] ([facility]) [address] [place], [place] [address] 5 07/06/2025 11:22:40 07/07/2025 09:33:46 History of mechanical prosthetic mitral valve replacement 074244165 Z95.2 [id number] Lyn Marmolejo MD [facility] ([facility]) [address] [place], [place] [address] 5 07/09/2025 13:42:58 07/10/2025 14:24:59 Atrial fibrillation 88446419 I48.91 warfarin therapyd/c naproxen d/t hx of bleeding [id number] Lyn Marmolejo MD [facility] ([facility]) [address] [place], [place] [address] 07/14/2025 13:52:08 07/15/2025 10:22:44 Dysuria 26983351 R30.0 57398 will call with ua results [id number] Lyn Marmolejo MD [facility] ([facility]) [address] [place], [place] [address] 5 07/16/2025 12:05:46 07/17/2025 11:01:38 Atrial fibrillation 26808241 I48.91 warfarin therapyd/c naproxen d/t hx of bleeding [id number] Lny Marmolejo MD [facility] ([facility]) [address] [place] [address] 95128-862 5 07/23/2025 11:35:38 07/24/2025 12:08:17 Atrial fibrillation 21357158 I48.91 warfarin therapyd/c naproxen d/t hx of bleeding [id number] Lyn Marmolejo MD [facility] ([facility]) [address] [place] [address] 22444-048 5 07/30/2025 11:32:37 07/31/2025 09:44:15 History of mechanical prosthetic mitral valve replacement 581744750 Z95.2 [id number] Lyn Marmolejo MD [facility] ([facility]) [address] [place] [address] 65805-449 5 08/04/2025 10:06:02 08/04/2025 15:14:44 Right cervical root neuropathy 7787334812 1002654 M54.12 76801263 Pain of ri t shoulder region 7839757168 M25.511 01501613 [id number] Lyn Marmolejo MD [facility] ([facility]) [address] [place] [address] 28481-848 5 08/07/2025 11:39:45 08/10/2025 10:28:08 Atrial fibrillation 23523133 I48.91 warfarin therapyd/c naproxen d/t hx of bleeding [id number] Lny Marmolejo MD [facility] ([facility]) [address] [place] [address] 29336-576 5 08/17/2025 13:17:17 08/18/2025 09:51:22 History of mechanical prosthetic mitral valve replacement 661143388 Z95.2 Mean corpu scular volume above reference range 576745366 R71.8 101663 Hypercalcemia 10186482 E 83.52 9955 Drug therapy finding 309 959392 Z79.899 03334561 Generalize d anxiety disorder 66059515 F41.1 515956 [id number] Lyn Marmolejo MD [facility] ([facility]) [address] [place] [address] 91124-717 5 09/02/2025 13:16:47 09/03/2025 10:16:00 History of mechanical prosthetic mitral valve replacement 512961142 Z95.2 [id number] Lyn Marmolejo MD [facility] ([facility]) [address] [place] [address] 26502-498 5 09/09/2025 09:58:14 09/10/2025 09:52:18 Benign essential hypertension 8329993 I10 [id number] Lyn Marmolejo MD [facility] ([facility]) [address] [place] [address] 04387-235 5 09/17/2025 13:22:57 09/18/2025 10:36:49 Atrial fibrillation 89850449 I48.91 warfarin therapyd/c naproxen d/t hx of bleeding Health Concerns Section Related Observation LastModified by Organization Detai ls LastModified Time None Recorded Concern Status LastModified by Organization Details LastModified Time None Recorded Advance Directives Directive None Recorded Payers Insurance Date Sequence Insurance Name Policy Number Policy Hernandez Covered Member ID Hernandez Member ID Guarantor Name 09/02/2025 [place] [facility] [place] Odilia Ulloa [id number] Odilia Ulloa 09/02/2025 2 [place] Odilia Ulloa [id number] Odilia Ulloa 09/17/2025 1 [place] - [place] [id number] Odilia Ulloa [id number] Odilia Ulloa Notes Date Note Type [...] and low on fuel. Lyn Marmolejo MD [address] [place] [address], [phone], [facility], [place] 08/17/2025 14:48:51 OBGyn Episode No OBEpisode recorded.
--- OUTSIDE RECORDS SUMMARY | 2025-09-25 08:25 | XMS_ITS | Encounter Summary ---
Author Organization [facility] Address [address] [place] [address] Care Team Providers Care Meal Miller Name Role Phone Rico Muñiz MD, Sharan Jaime Primary Care Provider Encounter Details Date Type Department Care Team (Latest Contact Info) Description 04/23/2002 Outpatient Historical [facility] Sharan Gómez Jr., MD [address] [place] [address] Pure hypercholesterolem (Primary Dx); HYPERCALCEMIA Social History Tobacco Use Types Packs/Day Years Used Date Smoking Tobacco: Never Assessed Comments Unknown Sex and Gender Information Value Date Recorded Sex Assigned at Not on file 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
--- OUTSIDE RECORDS SUMMARY | 2025-09-25 08:25 | XMS_ITS | Encounter Summary ---
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
--- OUTSIDE RECORDS SUMMARY | 2025-09-25 08:25 | XMS_ITS | Encounter Summary ---
Author Organization [facility] Address [address] [place] [address] Care Team Providers Care X Ray Equipment Servicer Name Role Phone Rico Muñiz MD, Sharan Jaime Primary Care Provider Encounter Details Date Type Department Care Team (Latest Contact Info) Description 06/24/2002 Outpatient Historical [facility] [place] [place] [address] Serge Arrington MD [address] [place] [address] Mitral valve disorder (Primary Dx); CORONARY ATHEROSCLER UNSPEC VESSEL; HYPERTENSION NOS; HYPERLIPIDEMIA NEC/NOS Social History Tobacco Use Types Packs/Day Years Used Date Smoking Tobacco: Never Assessed Comments Unknown Sex and Gender Information Value Date Recorded Sex Assigned at Not on file 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
--- OUTSIDE RECORDS SUMMARY | 2025-09-25 08:25 | XMS_ITS | Encounter Summary ---
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
--- OUTSIDE RECORDS SUMMARY | 2025-09-25 08:25 | XMS_ITS | Encounter Summary ---
Author Organization [facility] Address [address] [place] [address] Care Team Providers Care Casing Tester Name Role Phone Rico Muñiz MD, Sharan Jaime Primary Care Provider Encounter Details Date Type Department Care Team (Late st Contact Info) Description 10/14/2020 Lab Requisition [facility] [address] [place] [address] Paulina Peterson MD [address] [place] [address] Social History Tobacco Use Types Packs/Day Years Used Date Smoking Tobacco: Never Assessed Comments Unknown Sex and Gender Information Value Date Recorded Sex Assigned at Not on file 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 Gender Identity Not on file Sexual Orientation Not on file documented as of this encounter Plan of Treatment Not on file documented as of this encounter Procedures Procedure Name Priority Date/Time Associated Diagnosis Comments PROTIME-INR Routine 10/14/2020 6:16 AM DRY WALL SPRAYER documented in this encounter Results * (ABNORMAL) PROTIME-INR (10/14/2020 6:16 AM DRY WALL SPRAYER) PROTIME 43.3(H) 11.9 - 15.5 Seconds 10/14/2020 4:10 PM DRY WALL SPRAYER [facility] INR 4.4(H) 0.8 - 1.2 10/14/2020 4:10 PM DRY WALL SPRAYER [facility] Blood Collection / Unknown 10/14/2020 6:16 AM DRY WALL SPRAYER 10/14/2020 3:45 PM DRY WALL SPRAYER Narrative [facility] - 10/14/2020 4:10 PM DRY WALL SPRAYER Expected Values for INR: DVT/PE Goal INR [...] Peterson MD HEMATOLOGY ORDERABLES Maame smart Result [facility] [address] [place] [address] documented in this encounter Visit Diagnoses Not on filedocumented in this encounter Care Teams Casing Tester Relationship Specialty Start Date End Date Sharan óGmez Jr., MD [address] [place] [address] PCP - General 08/10/05 documented as of this encounter
--- OUTSIDE RECORDS SUMMARY | 2025-09-25 08:25 | XMS_ITS | Encounter Summary ---
Author Organization [facility] Address [address] [place] [address] Care Team Providers Care Seed Production Field Supervisor Name Role Phone Rico Muñiz MD, Sharan Jaime Primary Care Provider Encounter Details Date Type Department Care Team (Latest Contact Info) Description 06/26/2003 Outpatient Historical 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
--- OUTSIDE RECORDS SUMMARY | 2025-09-25 08:25 | XMS_ITS | Continuity of Care Document ---
Author Organization DAI Valentine [facility] Luis M, Keenan, [facility] ([facility]) Address [address] [place] [address] Care Team Providers Care Perfume Compounder Name Role Phone LYN MARMOLEJO Primary Care Provider Assessment No assessment recorded. Plan of Treatment Reminders Order Date Submit Date Provider Last Modified By Organization Details Last Modified Time Details Appointments SKILLED NURSING VISIT 2024 08:50A M Lyn Marmolejo MD Not available Not available Not available Lab PT/INR 2024 025 [facility] ([facility]), [address] [place], [address], 08/07/2025 11:56:37 Referral None recorded . Procedures None recorded . Surgeries None recorded . Imaging None recorded . Medication Orders None recorded . Patient TargetsNo targets recorded. Patient InstructionsNo instructions recorded. Reason for Referral None Reported. Results Created Date Observation Date Name Description Value Unit Range Abnormal Flag Note LastModifiedBy Organization Detail LastModifiedTime 07/09/2007/09/2025 PT/IN R Protime 34.6 Not Available [facility] ([facility]) [address] [place], [address], 07/09/2025 13:44:17 07/09/20 25 07/09/2025 PT/IN R INR 2.9 Not Available [facility] ([facility]) [address] [place], [address], 07/09/2025 13:44:17 07/14/2007/14/2025 URINA LYSIS WITH MICRO color YELLOW Not Available [facility] [address], [place], [address], 07/14/2025 14:52:32 07/14/20 25 07/14/2025 URINA LYSIS WITH MICRO clarity CLEAR Not Available [facility] [address], [place], [address], 07/14/2025 14:52:32 07/14/20 25 07/14/2025 URINA LYSIS WITH MICRO glu NEGATI VE Not Available [facility] [address], [place], [address], 07/14/2025 14:52:32 07/14/20 25 07/14/2025 URINA LYSIS WITH MICRO bili NEGATI VE Not Available [facility] [address], [place], [address], 07/14/2025 14:52:32 07/14/20 25 07/14/2025 URINA LYSIS WITH MICRO ket NEGATI VE Not Available [facility] [address], [place], [address], 07/14/2025 14:52:32 07/14/2007/14/2025 URINA LYSIS WITH MICRO S.g 1.010 1.005- 1.025 Not Available [facility] [address], [place], [address], 07/14/2025 14:52:32 07/14/2007/14/2025 URINA LYSIS WITH MICRO pH 5.0 5.0-7. 0 Not Available [facility] [address], [place], [address], 07/14/2025 14:52:32 07/14/20 25 07/14/2025 URINA LYSIS WITH MICRO pro NEGATI VE Not Available [facility] [address], [place], [address], 07/14/2025 14:52:32 07/14/20 25 07/14/2025 URINA LYSIS WITH MICRO uro 0.2 E.U./D L Not Available [facility] [address], [place], [address], 07/14/2025 14:52:32 07/14/20 25 07/14/2025 URINA LYSIS WITH MICRO nit NEGATI VE Not Available [facility] [address], [place], [address], 07/14/2025 14:52:32 07/14/20 25 07/14/2025 URINA LYSIS WITH MICRO blo NEGATI VE Not Available [facility] [address], [place], [address], 07/14/2025 14:52:32 07/14/2007/14/2025 URINA LYSIS WITH MICRO jose elias NEGATI VE Not Available [facility] [address], [place], [address], 07/14/2025 14:52:32 07/14/2007/14/2025 URINA LYSIS WITH MICRO WBC 0-1 abnormal Not Available [facility] [address], [place], [address], 07/14/2025 14:52:32 07/14/2007/14/2025 URINA LYSIS WITH MICRO RBC NEGATI VE Not Available [facility] [address], [place], [address], 07/14/2025 14:52:32 07/14/20 25 07/14/2025 URINA LYSIS WITH MICRO epi cells 1-2 abnormal Not Available [facility] [address] [facility], [place], [address], 07/14/2025 14:52:32 07/14/20 25 07/14/2025 URINA LYSIS WITH MICRO bacteria 1-2 HYALIN E CAST abnormal Not Available [facility] [address] [facility] [address], [place], [address], 07/14/2025 14:52:32 07/14/20 25 07/14/2025 URINA LYSIS WITH MICRO other NEG Not Available [facility] [address] [facility] [address], [place], [address], 07/14/2025 14:52:32 07/14/20 25 07/16/2025 CULTU RE, URINE , ROUTI NE culture, urine, routine SEE NOTE CULTU RE, URINE , ROUTI NE Micro Numbe r: [id number] Test Statu s: Final Speci men Sourc e: Urine Speci men Quali ty: Adequ ate Resul t: No Growt h Not Available [address], [address], 07/16/2025 02:51:13 07/17/20 25 07/17/2025 PT/IN R Protime 34.4 Not Available [facility] ([facility]) [address] [place] [address], [address], 07/16/2025 12:07:15 07/17/20 25 07/17/2025 PT/IN R INR 2.9 Not Available [facility] ([facility]) [address] [place] [address], [address], 07/16/2025 12:07:15 07/23/20 25 07/23/2025 PT/IN R Protime 47.0 Not Available [facility] ([facility]) [address] [place] [address], [address], 07/23/2025 11:36:06 07/23/2007/23/2025 PT/IN R INR 3.9 Not Available [facility] ([facility]) [address] [place], [address], 07/23/2025 11:36:06 07/30/2007/30/2025 PT/IN R Protime 30.2 Not Available [facility] ([facility]) [address] [place], [address], 07/30/2025 11:33:15 07/30/2007/30/2025 PT/IN R INR 2.5 Not Available [facility] ([facility]) [address] [place] [address], [address], 07/30/2025 11:33:15 08/07/2008/07/2025 PT/IN R Protime 26.3 Not Available [facility] ([facility]) [address] [place], [address], 08/07/2025 11:40:14 08/07/2008/07/2025 PT/IN R INR 2.2 Not Available [facility] ([facility]) [address] [place], [address], 08/07/2025 11:40:14 08/05/2008/04/2025 XR, cervi luisito spine , 2 or 3 view No observ ation record ed. [facility] [address] [place], [address], 08/07/2025 13:25:55 08/05/20 25 08/04/2025 XR, shoul vito, 2 or more view No observ ation record ed. [facility] [address] [place], [address], 08/07/2025 13:25:55 09/09/2009/08/2025 US, echoc ardio gram, trans thora cic, compl ete, w/ color flow No observ ation record ed. QUENTIN [facility] [address], [place], [address], 09/11/2025 09:19:21 09/15/2009/15/2025 MAMMO , scree ilya, digit al, bilat eral No observ ation record ed. [email or web address] [place] [address] [address] [facility], [place], [address], 09/16/2025 16:09:54 Result Notes None recorded. Problems Name Problem SNOMED Code Status Onset Date Resolution Date Notes Provider Name and Address Organization Details Recorded Time Depressi ve disorder 23168728 Completed 202010/14/2021 Depressi on - Status is Inactive ; 10/14/20 11:08AM by Maryellen Marmolejo PA-C, Annotati on/Adden dum; Promoted ; acuity set as *; FELISHA hamilton [facility] 5 07:56:57 Herpes zoster 6977658 Completed 202201/02/2025 SHINGLES FELISHA hamilton, [facility] 5 07:56:03 Dysthymi a 08493037 Active 2022 DEPRESSI ON WITH ANXIETY FELISHA hamilton [facility] 5 07:55:28 Benign essentia l hyperten jovanni 7508787 Active 2022 FELISHA hamilton, [facility] 5 07:55:28 Gastroes ophageal reflux disease 740063108 Active 2022 FELISHA hamilton [facility] 5 07:55:28 Fracture of upper end of humerus 112945422 Completed 202201/02/2025 CLOSED FRACTURE OF PROXIMAL END OF RIGHT HUMERUS, SEQUELA FELISHA hamilton, [facility] 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 3 14:45:05 Coronary atherosc lerosis 340469919 Active 2022 bare metal stents to circ and LAD 2011 FELISHA hamilton, [facility] 3 14:46:30 Iron deficien cy anemia 69133611 Active 2022 FELISHA hamilton, [facility] 5 07:55:28 Hypothyr oidism 73261717 Active 2022 FELISHA hamilton, [facility] 3 14:45:59 Anxiety 30379374 Active 2022 FELISHA hamilton, [facility] 3 14:46:54 Viral hepatiti s C 16874787 Active 2022 FELISHA hamilton, [facility] 5 07:55:28 Moderate recurren t major depressi on 23449457 Active 2023 FELISHA hamilton, [facility] 5 07:55:28 Need for personal care assistan ce 14711514802 222178 Active 2023 FELISHA hamilton [facility] 5 07:55:28 Frail elderly 861041848 Active 2023 FELISHA DESIR null, [facility] 5 07:55:28 Seasonal allergic rhinitis 918540216 Active 2023 FELISHA DESIR null, [facility] 5 07:55:28 Chronic pain 85230946 Active 2023 FELISHA DESIR null, [facility] 5 07:55:28 Dementia 30320797 Active 2023 FELISHA DESIR null, [facility] 5 07:55:28 Constipa tion 50361807 Active 2023 FELISHA DESIR alfonso, [facility] 5 07:55:44 Hyperlip idemia 50401032 Active 2024 FELISHA DESIR null, [facility] 5 07:59:38 Occult blood detected in feces 49989177 Active 2024 FELISHA DESIR null, [facility] 5 09:13:35 Mean corpuscu lar volume above referenc e range 313350346 Active 2024 FELISHA DESIR null, [facility] 5 09:14:07 Hypercal cemia 31984771 Active 2024 FELISHA hamilton, [facility] 5 10:07:49 Vitamin D deficien cy 49534755 Active 2024 Lyn Marmolejo MD [address] [place] [address], [address], [facility] 5 12:54:55 Hyperpar athyroid ism 12439972 Active 2024 Lyn Marmolejo MD [address] [place], [address], [facility] 5 12:54:56 Dysuria 97157396 Active 2024 Dotty Celis null, [facility] 5 14:08:08 Problem Notes None recorded. Procedures Surgical History Date Name Laterality Status Provider Name and Address Organization Details Recorded Time 2024 Most Recent [facility] 16:09:39 2024 esophagogastroduodenoscopy completed YANELIS WELSH [facility] 5 12:23:16 2024 colonoscopy completed [facility] 5 10:20:11 2023 esophagogastroduodenoscopy completed KIARA DUCKWORTH [facility] 4 12:40:14 2023 colonoscopy completed Lyn Marmolejo MD [address] [place], [address], [facility] 5 10:19:30 cholecystectomy [facility] 14:48:40 replacement of mitral valve complete d FELISHA [facility], [facility] 3 14:49:22 section completed [facility] 3 15:14:43 Imaging Results None recorded. Procedure Notes None recorded. Medical Equipment None Reported. Allergies Allergen ID Allergen Name Allergen Category Reaction Reaction Severity Criticality Documentation Date Start Date Code Code System Note Provider Name and Address Organization Details Recorded Time 1376 morphine medicatio n Not available Not available Not available 02/07/2023 7052 RxNorm [facility] 10:45:47 1377 diltiazem Not available Not available Not available Not available 02/07/2023 3443 RxNorm Dotty Celis [facility] 3 10:45:54 4552 Bactrim medicatio n other severe high 04/17/2023 61508 9 RxNorm do not give d/t couma din Lola Marcy [facility] 4 13:34:33 47844 diltiazem hydrochlo ride medicatio n Not available Not available Not available 05/26/202315065 1 RxNorm Comme nt: Recor ded 12/29 7:56A M by Yanelis Kitchen on, WORKERS 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, 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 ; Promo talib; Signi fican ce: *; Reaso n: Drug aller gy; ; [facility] 12:26:44 60047 morphine sulfate medicatio n Not available Not available Not available 05/26/2023 81336 RxNorm Comme nt: Recor ded 12/29 7:56A M by Yanelis Kitchen on, WORKERS 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 No [email or web address] Information not available 04/17/2023 Do you or have you ever used any other forms of tobacco or nicotine? No [email or web address] Information not available 06/29/2023 What is your level of alcohol consumption? None [email or web address] Information not available 04/17/2023 Mental Status None recorded. Family History Relationship Description Onset Age of this Age Resolved Age Notes LastModified by Organization Details LastModified Time Unspecified Relation Coronary atherosclero sis [email or web address] Not available 06/29 15:13:48 Medical History No medical history recorded. Gynecological History Statement/Question Response Most Recent Mammogram 09/15/2025 Obstetrics History GPAL:G 0 P 0 0 0 0 Immunizations Vaccine Type Date Status Note Provider Nam e and Address Organization Details Recorded Time Influenza, MDCK, quadrivalent, PF 2 completed FELISHA hamilton [facility] 10/10/2024 08:38:58 COVID-19, mRNA, LNP-S, PF, 100 mcg/0.5mL dose or 50 mcg/0.25mL dose 1 completed FELISHA hamilton [facility] 10/10/2024 08:38:58 COVID-19, mRNA, LNP-S, PF, 100 mcg/0.5mL dose or 50 mcg/0.25mL dose 1 completed FELISHA hamilton [facility] 10/10/2024 08:38:58 COVID-19, mRNA, LNP-S, PF, 100 mcg/0.5mL dose or 50 mcg/0.25mL dose 2 completed FELISHAJAMIE DESIR [facility], [facility] 10/10/2024 08:38:58 Pneumococcal conjugate PCV20, polysaccharide HSC143 conjugate, adjuvant, PF 3 completed FELISHA DESIR [facility], [facility] 10/10/2024 08:38:58 COVID-19, mRNA, LNP-S, bivalent, PF, 50 mcg/0.5 mL or 25mcg/0.25 mL dose 3 completed FELISHA hamilton, [facility] 10/10/2024 08:38:58 pneumococcal polysaccharide PPV23 3 completed FELISHA DESIR [facility], [facility] 04/17/2023 12:02:00 Tdap 1 completed FELISHA DESIR [facility], [facility] 10/10/2024 08:38:58 Influenza, split virus, trivalent, PF 3 completed FELISHAJAMIE DESIR [facility] 04/17/2023 12:02:00 influenza, split (incl. purified surface antigen) 0 completed FELISHA DESIR [facility], [facility] 04/17/2023 12:02:00 Hep A, adult 1 completed FELISHA DESIR [facility], [facility] 10/10/2024 08:38:58 Hep A, adult 9 completed FELISHAJAMIE DESIR [facility] 10/10/2024 08:38:58 Influenza, split virus, quadrivalent, PF 1 completed FELISHA DESIR null, [facility] 10/10/2024 08:38:58 Influenza, split virus, quadrivalent, PF 9 completed FELISHA DESIR null, [facility] 10/10/2024 08:38:58 Influenza, MDCK, trivalent, PF 4 completed FELISHA DESIR null, [facility] 10/10/2024 08:38:58 Influenza, MDCK, quadrivalent, preservative 3 completed FELISHA DESIR null, [facility] 10/10/2024 08:38:58 pneumococcal polysaccharide PPV23 8 completed Lola hamilton, [facility] 07/02/2024 08:41:52 Influenza, split virus, quadrivalent, PF 8 completed Lola Vidal null, [facility] 07/02/2024 08:41:52 zoster recombinant 3 completed Lola hamilton, [facility] 07/02/2024 14:52:40 COVID-19, mRNA, LNP-S, PF, 50 mcg/0.5 mL 4 completed FELISHA hamilton, [facility] 10/10/2024 08:38:58 Influenza, MDCK, trivalent, preservative 4 completed FELISHA DESIR null, [facility] 10/10/2024 08:38:58 Past Encounters Encounter ID Performer Location Encounter Start Date Encounter Closed Date Diagnosis/Indication Diagnosis SNOMED-CT Code Diagnosis ICD10 Code Diagnosis IMO Codes Diagnosis Note [id number] Lyn Marmolejo MD [facility] ([facility]) [address] [place] [address] 07/09/2025 13:42:58 07/10/2025 14:24:59 Atrial fibrillation 76068205 I48.91 warfarin therapyd/c naproxen d/t hx of bleeding [id number] Lyn Marmolejo MD [facility] ([facility]) [address] [place], [place] [address] 07/14/2025 13:52:08 07/15/2025 10:22:44 Dysuria 15916518 R30.0 11485 will call with ua results [id number] Lyn Marmolejo MD [facility] ([facility]) [address] [place] [address] 5 07/16/2025 12:05:46 07/17/2025 11:01:38 Atrial fibrillation 98329645 I48.91 warfarin therapyd/c naproxen d/t hx of bleeding [id number] Lyn Marmolejo MD [facility] ([facility]) [address] [place] [address] 5 07/23/2025 11:35:38 07/24/2025 12:08:17 Atrial fibrillation 35712976 I48.91 warfarin therapyd/c naproxen d/t hx of bleeding [id number] Lyn Marmolejo MD [facility] ([facility]) [address] [place] [address] 5 07/30/2025 11:32:37 07/31/2025 09:44:15 History of mechanical prosthetic mitral valve replacement 827601787 Z95.2 [id number] Lyn Marmolejo MD [facility] ([facility]) [address] [place] [address] 5 08/04/2025 10:06:02 08/04/2025 15:14:44 Right cervical root neuropathy 4808573389 8560348 M54.12 74512290 Pain of ri t shoulder region 9382298495 M25.511 53174080 [id number] Lyn Marmolejo MD [facility] ([facility]) [address] [place], [place] [address] 08/07/2025 11:39:45 08/10/2025 10:28:08 Atrial fibrillation 90798070 I48.91 warfarin therapyd/c naproxen d/t hx of bleeding Health Concerns Section Related Observation LastModified by Organization Detai ls LastModified Time None Recorded Concern Status LastModified by Organization Details LastModified Time None Recorded Payers Encounter Date Sequence Insurance Name Policy Number Policy Hernandez Covered Member ID Hernandez Member ID Guarantor Name 08/07/2025 1 [place] - [place]PO) [id number] Odilia Ulloa [id number] Odilia Ulloa 08/07/2025 2 [place] Odilia Ulloa [id number] Odilia Ulloa OBGyn Episode No OBEpisode recorded.
--- OUTSIDE RECORDS SUMMARY | 2025-09-25 08:25 | XMS_ITS | Encounter Summary ---
Author Organization [facility] Address [address] [facility] Attn: [place] [address] Care Team Providers Care Mixing Machine Operator Name Role Phone Rico Muñiz MD, Sharan Jaime Primary Care Provider Encounter Details Date Type Department Care Team (Late st Contact Info) Description 04/23/2002 Outpatient Historical Sharan Gómez Jr., MD [address] [place] [address] Social History Tobacco Use Types Packs/Day Years Used Date Smoking Tobacco: Never Assessed Comments Unknown Sex and Gender Information Value Date Recorded Sex Assigned at Not on file 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
--- OUTSIDE RECORDS SUMMARY | 2025-09-25 08:25 | XMS_ITS | Encounter Summary ---
Author Organization [facility] Address [address] [place] [address] Care Team Providers Care Valving Machine Operator Name Role Phone Rico Muñiz MD, Sharan Jaime Primary Care Provider Encounter Details Date Type Department Care Team (Latest Contact Info) Description 08/06/2006 Outpatient Historical [facility] Luis AFaisal Lopez [address] [place] [phone] Serge Arrington MD [address] [place] [address] Routine Gynecological Examination (Primary Dx) Social History Tobacco Use Types Packs/Day Years Used Date Smoking Tobacco: Never Assessed Comments Unknown Sex and Gender Information Value Date Recorded Sex Assigned at Not on file 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
--- OUTSIDE RECORDS SUMMARY | 2025-09-25 08:25 | XMS_ITS | Encounter Summary ---
Author Organization [facility] Address [address] [place] [address] Care Team Providers Care Cotton Seed Culler Name Role Phone Rico Muñiz MD, Sharan Jaime Primary Care Provider Encounter Details Date Type Department Care Team (Latest Contact Info) Description 07/15/2002 Outpatient Historical [facility] Rafael Lopez Michelle [address] [place] [phone] Patrick Olsen MD NO ADDRESS ON FILE POSTMENOPAUSAL BLEEDING (Primary Dx); DYSPAREUNIA; SCREENING MAL NEOP-CERVIX Social History Tobacco Use Types Packs/Day Years Used Date Smoking Tobacco: Never Assessed Comments Unknown Sex and Gender Information Value Date Recorded Sex Assigned at Not on file Legal Sex Female 5:42 AM RN MANAGED CARE Gender Identity Not on file Sexual Orientation Not on file documented as of this encounter Plan of Treatment Not on file documented as of this encounter Visit Diagnoses Diagnosis Postmenopausal bleeding- Primary Dyspareunia Screening for malignant neoplasm of the cervix documented in this encounter Care Teams Cotton Seed Culler Relationship Specialty Start Date End Date Sharan Gómez Jr., MD [address] [place] [address] PCP - General 08/10/05 documented as of this encounter
--- OUTSIDE RECORDS SUMMARY | 2025-09-25 08:26 | XMS_ITS | Encounter Summary ---
Author Organization [facility] Address [address] [place] [address] Care Team Providers Care Video Clerk Name Role Phone Rico Muñiz MD, Sharan Jaime Primary Care Provider Encounter Details Date Type Department Care Team (Latest Contact Info) Description 04/19/2001 Outpatient Historical [facility] Arun Nichols NO ADDRESS ON FILE Contusion of hand(s) (Primary Dx) Social History Tobacco Use Types Packs/Day Years Used Date Smoking Tobacco: Never Assessed Comments Unknown Sex and Gender Information Value Date Recorded Sex Assigned at Not on file Legal Sex Female 5:42 AM SEED CLEANER OPERATOR Gender Identity Not on file Sexual Orientation Not on file documented as of this encounter Plan of Treatment Not on file documented as of this encounter Visit Diagnoses Diagnosis Contusion of hand(s)- Primary documented in this encounter Care Teams Video Clerk Relationship Specialty Start Date End Date Sharan Gómez Jr., MD [address] [place] [address] PCP - General 08/10/05 documented as of this encounter
--- OUTSIDE RECORDS SUMMARY | 2025-09-25 08:26 | XMS_ITS | Encounter Summary ---
Author Organization [facility] Address [address] [place] [address] Care Team Providers Care Ash Pit Worker Name Role Phone Rico Muñiz MD, Sharan Jaime Primary Care Provider Encounter Details Date Type Department Care Team (Latest Contact Info) Description 02/04/2007 Outpatient [facility] AFaisal [facility] [place] [place] [phone] Serge Arrington MD [address] [place] [address] Unspecified Essential Hypertension (Primary Dx); Mitral Valve Disorder; Other and Unspecified Hyperlipidemia Social History Tobacco Use Types Packs/Day Years Used Date Smoking Tobacco: Never Assessed Comments Unknown Sex and Gender Information Value Date Recorded Sex Assigned at Not on file Legal Sex Female 5:42 AM ASSAULT AMPHIBIOUS VEHICLE OFFICER Gender Identity Not on file Sexual Orientation Not on file documented as of this encounter Plan of Treatment Not on file documented as of this encounter Visit Diagnoses Diagnosis Unspecified essential hypertension- Primary Mitral valve disorder Mitral valve disorders Other and unspecified hyperlipidemia documented in this encounter Care Teams Ash Pit Worker Relationship Specialty Start Date End Date Sharan Gómez Jr., MD [address] [place] [address] PCP - General 08/10/05 documented as of this encounter
--- OUTSIDE RECORDS SUMMARY | 2025-09-25 08:26 | XMS_ITS | Encounter Summary ---
Author Organization [facility] Address [address] [place] [address] Care Team Providers Care Co Founder And President Name Role Phone Rico Muñiz MD, Sharan Jaime Primary Care Provider Encounter Details Date Type Department Care Team (Latest Contact Info) Description 11/04/1998 Outpatient Historical [facility] Sharan Gómez Jr., MD [address] [place] [address] Acute upper respiratory infections of unspecified site (Primary Dx); Screening for other and unspecified respiratory condition; Other dyspnea and respiratory abnormality; care home (current) use of anticoagulants Social History Tobacco Use Types Packs/Day Years Used Date Smoking Tobacco: Never Assessed Comments Unknown Sex and Gender Information Value Date Recorded Sex Assigned at Not on file Legal Sex Female 5:42 AM GLASS BLOWER Gender Identity Not on file Sexual Orientation [...] anticoagulants documented in this encounter Care Teams Co Founder And President Relationship Specialty Start Date End Date Sharan Gómez Jr., MD [address] [place] [address] PCP - General 08/10/05 documented as of this encounter
--- OUTSIDE RECORDS SUMMARY | 2025-09-25 08:26 | XMS_ITS | Encounter Summary ---
Author Organization [facility] Address [address] [place] [address] Care Team Providers Care Director Loss Prevention Name Role Phone Rico Muñiz MD, Sharan Jaime Primary Care Provider Encounter Details Date Type Department Care Team (Latest Contact Info) Description 05/16/2001 Outpatient Historical [facility] Sharan Gómez Jr., MD [address] [place] [address] Unspecified essential hypertension (Primary Dx); shelter (current) use of anticoagulants Social History Tobacco Use Types Packs/Day Years Used Date Smoking Tobacco: Never Assessed Comments Unknown Sex and Gender Information Value Date Recorded Sex Assigned at Not on file Legal Sex Female 5:42 AM CONDUCTOR AND ENGINEER Gender Identity Not on file Sexual Orientation Not on file documented as of this encounter Plan of Treatment Not on file documented as of this encounter Visit Diagnoses Diagnosis Unspecified essential hypertension- Primary shelter (current) use of anticoagulants Long-term (current) use of anticoagulants documented in this encounter Care Teams Director Loss Prevention Relationship Specialty Start Date End Date Sharan Gómez Jr., MD [address] [place] [address] PCP - General 08/10/05 documented as of this encounter
--- OUTSIDE RECORDS SUMMARY | 2025-09-25 08:26 | XMS_ITS | Encounter Summary ---
Author Organization [facility] Address [address] [place] [address] Care Team Providers Care Test Driver Name Role Phone Rico Muñiz MD, Sharan Jaime Primary Care Provider Encounter Details Date Type Department Care Team (Latest Contact Info) Description 06/24/2001 Outpatient Historical [facility] Int Luis AFaisal Lopez [place] [address] [place] [phone] Serge Arrington MD [address] [place] [address] Mitral valve disorder (Primary Dx); Unspecified essential hypertension; Other and unspecified hyperlipidemia; Dizziness and giddiness Social History Tobacco Use Types Packs/Day Years Used Date Smoking Tobacco: Never Assessed Comments Unknown Sex and Gender Information Value Date Recorded Sex Assigned at Not on file Legal Sex Female 5:42 AM CD MIXER Gender Identity Not on file Sexual Orientation Not on file documented as of this encounter Plan of Treatment Not on file documented as of this encounter Visit Diagnoses Diagnosis Mitral valve disorder- Primary Mitral valve disorders Unspecified essential hypertension Other and unspecified hyperlipidemia Dizziness and giddiness documented in this encounter Care Teams Test Driver Relationship Specialty Start Date End Date Sharan Gómez Jr., MD [address] [place] [address] PCP - General 08/10/05 documented as of this encounter
--- OUTSIDE RECORDS SUMMARY | 2025-09-25 08:26 | XMS_ITS | Encounter Summary ---
Author Organization [facility] Address [address] Attn: [place] [address] Care Team Providers Care Component Assembler Supervisor Name Role Phone Rico Muñiz MD, Sharan Jaime Primary Care Provider Encounter Details Date Type Department Care Team (Late st Contact Info) Description 05/16/2001 Outpatient Historical Sharan Gómez Jr., MD [address] [place] [address] Social History Tobacco Use Types Packs/Day Years Used Date Smoking Tobacco: Never Assessed Comments Unknown Sex and Gender Information Value Date Recorded Sex Assigned at Not on file Legal Sex Female 5:42 AM HYDROPONICS WORKER Gender Identity Not on file Sexual Orientation Not on file documented as of this encounter Plan of Treatment Not on file documented as of this encounter Visit Diagnoses Not on filedocumented in this encounter Care Teams Component Assembler Supervisor Relationship Specialty Start Date End Date Sharan Gómez Jr., MD [address] [place] [address] PCP - General 08/10/05 documented as of this encounter
--- OUTSIDE RECORDS SUMMARY | 2025-09-25 08:26 | XMS_ITS | Encounter Summary ---
Author Organization [facility] Address [address] [place] [address] Care Team Providers Care Education Rep Name Role Phone Rico Muñiz MD, Sharan Jaime Primary Care Provider Encounter Details Date Type Department Care Team (Latest Contact Info) Description 01/14/1999 Outpatient Historical [facility] Sharan Gómez Jr., MD [address] [place] [address] Spasm of muscle (Primary Dx) Social History Tobacco Use Types Packs/Day Years Used Date Smoking Tobacco: Never Assessed Comments Unknown Sex and Gender Information Value Date Recorded Sex Assigned at Not on file Legal Sex Female 5:42 AM DRESSMAKER GARMENT FITTER Gender Identity Not on file Sexual Orientation Not on file documented as of this encounter Plan of Treatment Not on file documented as of this encounter Visit Diagnoses Diagnosis Spasm of muscle- Primary documented in this encounter Care Teams Education Rep Relationship Specialty Start Date End Date Sharan Gómez Jr., MD [address] [place] [address] PCP - General 08/10/05 documented as of this encounter
--- OUTSIDE RECORDS SUMMARY | 2025-09-25 08:26 | XMS_ITS | Encounter Summary ---
Author Organization [facility] Address [address] [place] [address] Care Team Providers Care Traffic Personnel Supervisor Name Role Phone Rico Muñiz MD, Sharan Jaime Primary Care Provider Encounter Details Date Type Department Care Team (Latest Contact Info) Description 09/15/1998 Outpatient Historical [facility] Sharan Gómez Jr., MD [address] [place] [address] Unspecified essential hypertension (Primary Dx); Esophagitis, unspecified; nursing home (current) use of anticoagulants; Need vaccination-viral disease Social History Tobacco Use Types Packs/Day Years Used Date Smoking Tobacco: Never Assessed Comments Unknown Sex and Gender Information Value Date Recorded Sex Assigned at Not on file Legal Sex Female 5:42 AM TELEPHONE SWITCHBOARD OPERATOR Gender Identity Not on file Sexual Orientation Not on file documented as of this encounter Plan of Treatment Not on file documented as of this encounter Visit Diagnoses Diagnosis Unspecified essential hypertension- Primary Esophagitis, unspecified terminal worker (current) use of anticoagulants Long-term (current) use of anticoagulants Need vaccination-viral disease Need for prophylactic vaccination and inoculation against other viral diseases documented in this encounter Care Teams Traffic Personnel Supervisor Relationship Specialty Start Date End Date Sharan Gómez Jr., MD [address] [place] [address] PCP - General 08/10/05 documented as of this encounter
--- OUTSIDE RECORDS SUMMARY | 2025-09-25 08:26 | XMS_ITS | Encounter Summary ---
Author Organization [facility] Address [address] [place] [address] Care Team Providers Care Ecology Teacher Name Role Phone Rico Muñiz MD, Sharan Jaime Primary Care Provider Encounter Details Date Type Department Care Team (Latest Contact Info) Description 06/28/2001 Outpatient Historical [facility] Sharan Gómez Jr., MD [address] [place] [address] Esophageal reflux (Primary Dx); Heart valve replaced by other means Social History Tobacco Use Types Packs/Day Years Used Date Smoking Tobacco: Never Assessed Comments Unknown Sex and Gender Information Value Date Recorded Sex Assigned at Not on file Legal Sex Female 5:42 AM PRODUCT DEVELOPMENT COORDINATOR Gender Identity Not on file Sexual Orientation Not on file documented as of this encounter Plan of Treatment Not on file documented as of this encounter Visit Diagnoses Diagnosis Esophageal reflux- Primary Heart valve replaced by other means documented in this encounter Care Teams Ecology Teacher Relationship Specialty Start Date End Date Sharan Gómez Jr., MD [address] [place] [address] PCP - General 08/10/05 documented as of this encounter
--- OUTSIDE RECORDS SUMMARY | 2025-09-25 08:26 | XMS_ITS | Encounter Summary ---
Author Organization [facility] Address [address] [facility] Attn: [place] [address] Care Team Providers Care Mine Engineering Supervisor Name Role Phone Rico Muñiz MD, Sharan Jaime Primary Care Provider Encounter Details Date Type Department Care Team (Late st Contact Info) Description 08/05/2001 Outpatient Historical Sharan Gómez Jr., MD [address] [place] [address] Social History Tobacco Use Types Packs/Day Years Used Date Smoking Tobacco: Never Assessed Comments Unknown Sex and Gender Information Value Date Recorded Sex Assigned at Not on file Legal Sex Female 5:42 AM RECONSIGNMENT CLERK Gender Identity Not on file Sexual Orientation Not on file documented as of this encounter Plan of Treatment Not on file documented as of this encounter Visit Diagnoses Not on filedocumented in this encounter Care Teams Mine Engineering Supervisor Relationship Specialty Start Date End Date Sharan Gómez Jr., MD [address] [place] [address] PCP - General 08/10/05 documented as of this encounter
--- OUTSIDE RECORDS SUMMARY | 2025-09-25 08:26 | XMS_ITS | Encounter Summary ---
Author Organization [facility] Address [address] [place] [address] Care Team Providers Care Well Drill Operator Cable Tool Name Role Phone Rico Muñiz MD, Sharan Jaime Primary Care Provider Encounter Details Date Type Department Care Team (Latest Contact Info) Description 11/05/2003 Outpatient Historical [facility] [address] [place] [address] Екатерина Malone MD [address] [place] [address] HYPERLIPIDEMIA NEC/NOS (Primary Dx) Social History Tobacco Use Types Packs/Day Years Used Date Smoking Tobacco: Never Assessed Comments Unknown Sex and Gender Information Value Date Recorded Sex Assigned at Not on file Legal Sex Female 5:42 AM REED WORKER Gender Identity Not on file Sexual Orientation Not on file documented as of this encounter Plan of Treatment Not on file documented as of this encounter Visit Diagnoses Diagnosis Other and unspecified hyperlipidemia- Primary documented in this encounter Care Teams Well Drill Operator Cable Tool Relationship Specialty Start Date End Date Sharan Gómez Jr., MD [address] [place] [address] PCP - General 08/10/05 documented as of this encounter
--- OUTSIDE RECORDS SUMMARY | 2025-09-25 08:26 | XMS_ITS | Encounter Summary ---
Author Organization [facility] Address [address] [place] [address] Care Team Providers Care Roustabout Head Name Role Phone Rico Muñiz MD, Sharan Jaime Primary Care Provider Encounter Details Date Type Department Care Team (Latest Contact Info) Description 07/04/2005 Outpatient Historical [facility] Int Luis AFaisal Lopez [place] [address] [place] [address] Serge Arrington MD [address] [place] [address] Mitral valve disorder (Primary Dx); HYPERTENSION NOS; ABN FIND-STOOL CONTENTS-OCC BLOOD; SCREENING MAL NEOP-CERVIX Social History Tobacco Use Types Packs/Day Years Used Date Smoking Tobacco: Never Assessed Comments Unknown Sex and Gender Information Value Date Recorded Sex Assigned at Not on file Legal Sex Female 5:42 AM CARE SERVICES MANAGER Gender Identity Not on file Sexual Orientation Not on file documented as of this encounter Plan of Treatment Not on file documented as of this encounter Visit Diagnoses Diagnosis Mitral valve disorder- Primary Mitral valve disorders Unspecified essential hypertension Nonspecific abnormal finding in stool contents Screening for malignant neoplasm of the cervix documented in this encounter Care Teams Roustabout Head Relationship Specialty Start Date End Date Sharan Gómez Jr., MD [address] [place] [address] PCP - General 08/10/05 documented as of this encounter
--- OUTSIDE RECORDS SUMMARY | 2025-09-25 08:26 | XMS_ITS | Encounter Summary ---
Author Organization [facility] Address [address] [place] [address] Care Team Providers Care Wind Farm Operations Manager Name Role Phone Rico Muñiz MD, Sharan Jaime Primary Care Provider Encounter Details Date Type Department Care Team (Latest Contact Info) Description 07/04/2005 Outpatient Historical [facility] [place] [place] [address] Serge Arrington MD [address] [place] [address] ROUTINE MOTOR GRADER ROUGH GRADE EXAMINATION (Primary Dx) Social History Tobacco Use Types Packs/Day Years Used Date Smoking Tobacco: Never Assessed Comments Unknown Sex and Gender Information Value Date Recorded Sex Assigned at Not on file Legal Sex Female 5:42 AM JAVA GRAILS DEVELOPER Gender Identity Not on file Sexual Orientation Not on file documented as of this encounter Plan of Treatment Not on file documented as of this encounter Visit Diagnoses Diagnosis Routine gynecological examination- Primary documented in this encounter Care Teams Wind Farm Operations Manager Relationship Specialty Start Date End Date Sharan Gómez Jr., MD [address] [place] [address] PCP - General 08/10/05 documented as of this encounter
--- OUTSIDE RECORDS SUMMARY | 2025-09-25 08:26 | XMS_ITS | Encounter Summary ---
Author Organization [facility] Address [address] [place] [address] Care Team Providers Care Assignment Desk Editor Name Role Phone Rico Muñiz MD, Sharan Jaime Primary Care Provider Encounter Details Date Type Department Care Team (Late st Contact Info) Description 10/15/2020 Lab Requisition [facility] [address] [place] [address] Paulina Peterson MD [address] [place] [address] Social History Tobacco Use Types Packs/Day Years Used Date Smoking Tobacco: Never Assessed Comments Unknown Sex and Gender Information Value Date Recorded Sex Assigned at Not on file Legal Sex Female 5:42 AM HOME INSURANCE AGENT Gender Identity Not on file Sexual Orientation Not on file documented as of this encounter Plan of Treatment Not on file documented as of this encounter Procedures Procedure Name Priority Date/Time Associated Diagnosis Comments PROTIME-INR Routine 10/15/2020 4:40 AM HOME INSURANCE AGENT documented in this encounter Results * (ABNORMAL) PROTIME-INR (10/15/2020 4:40 AM HOME INSURANCE AGENT) PROTIME 46.6(H) 11.9 - 15.5 Seconds 10/15/2020 4:26 PM HOME INSURANCE AGENT [facility] INR 4.9(H) 0.8 - 1.2 10/15/2020 4:26 PM HOME INSURANCE AGENT [facility] Blood Collection / Unknown 10/15/2020 4:40 AM HOME INSURANCE AGENT 10/15/2020 4:01 PM HOME INSURANCE AGENT Narrative [facility] - 10/15/2020 4:26 PM HOME INSURANCE AGENT Expected Values for INR: DVT/PE Goal INR [...] MD HEMATOLOGY ORDERABLES Maame smart Result [facility] [address] [place] [address] documented in this encounter Visit Diagnoses Not on filedocumented in this encounter Care Teams Assignment Desk Editor Relationship Specialty Start Date End Date Sharan Gómez Jr., MD [address] [place] [address] PCP - General 08/10/05 documented as of this encounter
--- OUTSIDE RECORDS SUMMARY | 2025-09-25 08:26 | XMS_ITS | Continuity of Care Document ---
Author Organization [place] - Kenneth Haas [facility] Luis M, [place], [facility] ([facility]) Address [address] [place] [address] Care Team Providers Care Computer System Specialist Name Role Phone LYN MARMOLEJO Primary Care Provider Assessment No assessment recorded. Plan of Treatment Reminders Order Date Submit Date Provider Last Modified By Organization Details Last Modified Time Details Appointments RESIDENTIAL VISIT 2024 08:50A M Lyn Marmolejo MD Not available Not available Not available Lab None recorded . Referral None recorded . Procedures None recorded . Surgeries None recorded . Imaging None recorded . Medication Orders None recorded . Patient TargetsNo targets recorded. Patient InstructionsNo instructions recorded. Reason for Referral None Reported. Results Created Date Observation Date Name Description Value Unit Range Abnormal Flag Note LastModifiedBy Organization Detail LastModifiedTime 06/05/2006/05/2025 HBA1C hemaglobin A1C 5.7 4.2-6. 5 Not Available [facility] [address] [facility] [place] [facility], [place], [address], 06/05/2025 12:56:12 06/05/20 25 06/05/2025 CMP (FEMA LE) glucose 86.0 mg/dL 60.0-9 9.0 Not Available [facility] [address] [place] [facility], [place], [address], 06/05/2025 12:57:50 06/05/20 25 06/05/2025 CMP (FEMA LE) BUN (blood urea nitrogen) 17.0 mg/dL 10.0-2 6.0 Not Available [facility] [address] [facility], [place], [address], 06/05/2025 12:57:50 06/05/20 25 06/05/2025 CMP (FEMA LE) creatinine (serum) 0.9 mg/dL 0.4-1. 5 Not Available [facility] [address] [facility], [place], [address], 06/05/2025 12:57:50 06/05/20 25 06/05/2025 CMP (FEMA LE) BUN/creatini ne ratio 18.89 ratio Not Available [facility] [address] [facility], [place], [address], 06/05/2025 12:57:50 06/05/20 25 06/05/2025 CMP (FEMA LE) eGFR calculated 64.9 Not Available [facility] [address] [facility], [place], [address], 06/05/2025 12:57:50 06/05/20 25 06/05/2025 CMP (FEMA LE) total protein 7.6 g/dL 6.0-8. 5 Not Available [facility] [address] [facility], [place], [address], 06/05/2025 12:57:50 06/05/20 25 06/05/2025 CMP (FEMA LE) total bilirubin 1.1 mg/dL 0.2-1. 3 Not Available [facility] [address] [facility], [place], [address], 06/05/2025 12:57:50 06/05/20 25 06/05/2025 CMP (FEMA LE) albumin 4.5 g/dL 3.5-5. 5 Not Available [facility] [address] [facility], [place], [address], 06/05/2025 12:57:50 06/05/20 25 06/05/2025 CMP (FEMA LE) globulin 3.1 calc Not Available [facility] [address] [place] [facility], [place], [address], 06/05/2025 12:57:50 06/05/20 25 06/05/2025 CMP (FEMA LE) AST (SGOT) 28.0 U/L 0.0-46 .0 Not Available [facility] [address] [facility], [place], [address], 06/05/2025 12:57:50 06/05/20 25 06/05/2025 CMP (FEMA LE) altv (SGPT) 14.0 U/L 13.0-6 9.0 normal Not Available [facility] [address] [facility], [place], [address], 06/05/2025 12:57:50 06/05/20 25 06/05/2025 CMP (FEMA LE) A/G ratio 1.5 ratio Not Available [facility] [address] [facility], [place], [address], 06/05/2025 12:57:50 06/05/20 25 06/05/2025 CMP (FEMA LE) ALP phos 87.0 U/L 30.0-1 40.0 normal Not Available [facility] [address] [facility], [place], [address], 06/05/2025 12:57:50 06/05/20 25 06/05/2025 CMP (FEMA LE) calcium 10.6 mg/dL 8.4-10 .5 high Not Available [facility] [address] [facility], [place], [address], 06/05/2025 12:57:50 06/05/20 25 06/05/2025 CMP (FEMA LE) sodium 140.0 mmol/ L 136.0- 145.0 Not Available [facility] [address] [facility], [place], [address], 06/05/2025 12:57:50 06/05/20 25 06/05/2025 CMP (FEMA LE) potassium 4.8 mmol/ L 3.5-5. 1 Not Available [facility] [address] [facility], [place], [address], 06/05/2025 12:57:50 06/05/20 25 06/05/2025 CMP (FEMA LE) chloride 106.0 mmol/ L 98.0-1 10.0 normal Not Available [facility] [address] [facility], [place], [address], 06/05/2025 12:57:50 06/05/20 25 06/05/2025 CMP (FEMA LE) C02 27.0 mmol/ L 22.0-3 1.0 Not Available [facility] [address] [facility], [place], [address], 06/05/2025 12:57:50 06/05/20 25 06/05/2025 CMP (FEMA LE) anion gap 7.0 calc Not Available [facility] [address] [facility] 1, [place], [address], 06/05/2025 12:57:50 06/05/20 25 06/05/2025 CMP (FEMA LE) osmolality 290.0 calc Not Available [facility] [address] [facility], [place], [address], 06/05/2025 12:57:50 06/05/20 25 06/05/2025 LIPID PROFI LE (FEMA LE) cholesterol 227.0 mg/dL 0.0-20 0.0 high Not Available [facility] [address] [facility] 1, [place], [address], 06/05/2025 12:57:53 06/05/20 25 06/05/2025 LIPID PROFI LE (FEMA LE) trig 134.0 mg/dL 0.0-15 0.0 Not Available [facility] [address] [facility] 1, [place], [address], 06/05/2025 12:57:53 06/05/20 25 06/05/2025 LIPID PROFI LE (FEMA LE) HDL - direct 51.0 mg/dL >40.0 Not Available [facility] [address] [facility] 1, [place], [address], 06/05/2025 12:57:53 06/05/20 25 06/05/2025 LIPID PROFI LE (FEMA LE) VLDL - direct 26.8 mg/dL Not Available [facility] [address] [facility] 1, [place], [address], 06/05/2025 12:57:53 06/05/20 25 06/05/2025 LIPID PROFI LE (FEMA LE) LDL - direct 149.2 mg/dL 0.0-13 0.0 high Not Available [facility] [address] [facility] 1, [place], [address], 06/05/2025 12:57:53 06/05/20 25 06/05/2025 TSH TSH 0.83 uIU/m L 0.49-3 .82 Not Available [facility] [address] [facility] 1, [place], [address], 06/05/2025 14:15:28 06/05/2006/06/2025 HEPAT ITIS B SURFA CE ANTIB RASHARD QL hepatitis B surface antibody ql NON-RE ACTIVE non-re active normal Not Available [employer] [facility] [address] [place], [address], 06/06/2025 09:58:04 06/11/2006/11/2025 CMP (FEMA LE) glucose 88.0 mg/dL 60.0-9 9.0 Not Available [facility] [address] [facility], [place], [address], 06/11/2025 13:16:16 06/11/20 25 06/11/2025 CMP (FEMA LE) BUN (blood urea nitrogen) 25.0 mg/dL 10.0-2 6.0 Not Available [facility] [address] [facility] 1, [place], [address], 06/11/2025 13:16:16 06/11/20 25 06/11/2025 CMP (FEMA LE) creatinine (serum) 1.1 mg/dL 0.4-1. 5 Not Available [facility] [address] [facility] 1, [place], [address], 06/11/2025 13:16:16 06/11/20 25 06/11/2025 CMP (FEMA LE) BUN/creatini ne ratio 22.73 ratio Not Available [facility] [address] [address], [place], [address], 06/11/2025 13:16:16 06/11/20 25 06/11/2025 CMP (FEMA LE) eGFR calculated 51.5 Not Available [facility] [address] [facility] 1, [place], [address], 06/11/2025 13:16:16 06/11/20 25 06/11/2025 CMP (FEMA LE) total protein 7.7 g/dL 6.0-8. 5 Not Available [facility] [address] [address], [place], [address], 06/11/2025 13:16:16 06/11/20 25 06/11/2025 CMP (FEMA LE) total bilirubin 0.9 mg/dL 0.2-1. 3 Not Available [facility] [address] [facility] 1, [place], [address], 06/11/2025 13:16:16 06/11/20 25 06/11/2025 CMP (FEMA LE) albumin 4.6 g/dL 3.5-5. 5 Not Available [facility] [address] [facility] 1, [place], [address], 06/11/2025 13:16:16 06/11/2006/11/2025 CMP (FEMA LE) globulin 3.1 calc Not Available [facility] [address] [facility] 1, [place], [address], 06/11/2025 13:16:16 06/11/20 25 06/11/2025 CMP (FEMA LE) AST (SGOT) 32.0 U/L 0.0-46 .0 Not Available [facility] [address] [facility] 1, [place], [address], 06/11/2025 13:16:16 06/11/20 25 06/11/2025 CMP (FEMA LE) altv (SGPT) 15.0 U/L 13.0-6 9.0 normal Not Available [facility] [address] [facility] 1, [place], [address], 06/11/2025 13:16:16 06/11/20 25 06/11/2025 CMP (FEMA LE) A/G ratio 1.5 ratio Not Available [facility] [address] [facility] 1, [place], [address], 06/11/2025 13:16:16 06/11/20 25 06/11/2025 CMP (FEMA LE) ALP phos 81.0 U/L 30.0-1 40.0 normal Not Available [facility] [address] [facility], [place], [address], 06/11/2025 13:16:16 06/11/20 25 06/11/2025 CMP (FEMA LE) calcium 10.4 mg/dL 8.4-10 .5 Not Available [facility] [address] [facility], [place], [address], 06/11/2025 13:16:16 06/11/20 25 06/11/2025 CMP (FEMA LE) sodium 142.0 mmol/ L 136.0- 145.0 Not Available [facility] [address] [facility] 1, [place], [address], 06/11/2025 13:16:16 06/11/2006/11/2025 CMP (FEMA LE) potassium 4.7 mmol/ L 3.5-5. 1 Not Available [facility] [address] [facility], [place], [address], 06/11/2025 13:16:16 06/11/2006/11/2025 CMP (FEMA LE) chloride 106.0 mmol/ L 98.0-1 10.0 normal Not Available [facility] [address] [facility] 1, [place], [address], 06/11/2025 13:16:16 06/11/2006/11/2025 CMP (FEMA LE) C02 27.0 mmol/ L 22.0-3 1.0 Not Available [facility] [address] [facility], [place], [address], 06/11/2025 13:16:16 06/11/2006/11/2025 CMP (FEMA LE) anion gap 9.0 calc Not Available [facility] [address] [facility] 1, [place], [address], 06/11/2025 13:16:16 06/11/20 25 06/11/2025 CMP (FEMA LE) osmolality 296.7 calc Not Available [facility] [address] [facility], [place], [address], 06/11/2025 13:16:16 06/11/20 25 06/12/2025 PTH, INTAC T (ICMA [...] or Low Joie l High Not Available [facility] [address] [address] [place], [address], 06/12/2025 15:27:52 06/11/2006/12/2025 PTH, INTAC T (ICMA ) AND IONIZ ED CALCI UM calcium 10.1 mg/dL 8.6-10 .4 normal Not Available [facility] [address] [address] [place], [address], 06/12/2025 15:27:52 06/11/2006/12/2025 PTH, INTAC T (ICMA ) AND IONIZ ED CALCI UM calcium, ionized 5.5 mg/dL 4.7-5. 5 normal Not Available [facility] [address] [address] [place], [address], 06/12/2025 15:27:52 06/11/20 25 06/12/2025 VITAM IN [...] /MS is recom gagan d: order code [id number] (vargas ents >2yrs ). See Note 1 Note 1 For addit ional infor surya mclean refer to http: //[facility] emma tobin ics.c om/fa q/FAQ 199 (This link is being provi ded for infor sarika stroud/ connor smart purpo ses only. ) Not Available [facility] [address] [place], [address], 06/12/2025 15:27:54 06/24/20 25 06/24/2025 PT/IN R Protime 40.9 Not Available [facility] ([facility]) [address] [place] [address], [address], 06/24/2025 13:13:54 06/24/20 25 06/24/2025 PT/IN R INR 3.4 Not Available [facility] ([facility]) [address] [place] [address], [address], 06/24/2025 13:13:54 07/02/20 25 07/02/2025 PT/IN R Protime 42.3 Not Available [facility] ([facility]) [address] [place] [address], [address], 07/01/2025 10:25:07 07/02/20 25 07/02/2025 PT/IN R INR 3.5 Not Available [facility] ([facility]) [address] [place], [address], 07/01/2025 10:25:07 08/05/20 25 08/04/2025 XR, cervi luisito spine , 2 or 3 view No observ ation record ed. [facility] [address] [place], [address], 08/07/2025 13:25:55 08/05/2008/04/2025 XR, shoul vito, 2 or more view No observ ation record ed. [facility] [address] [place], [address], 08/07/2025 13:25:55 09/09/2009/08/2025 US, echoc ardio gram, trans thora cic, compl ete, w/ color flow No observ ation record ed. [facility] [address] [place], [address], 09/11/2025 09:19:21 09/15/2009/15/2025 MAMMO , scree ilya, digit al, bilat eral No observ ation record ed. [address] [place], [address], 09/16/2025 16:09:54 Result Notes None recorded. Problems Name Problem SNOMED Code Status Onset Date Resolution Date Notes Provider Name and Address Organization Details Recorded Time Depressi ve disorder 40786068 Completed 202010/14/2021 Depressi on - Status is Inactive ; 10/14/20 11:08AM by Maryellen Marmolejo PA-C, Annotati on/Adden dum; Promoted ; acuity set as *; [facility] L[facility] 07:56:57 Herpes zoster 5337153 Completed 202201/02/2025 SHINGLES FELISHA DESIR null, [facility] 5 07:56:03 Dysthymi a 63824798 Active 2022 DEPRESSI ON WITH ANXIETY FELISHA hamilton, [facility] 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 5 07:56:22 Atrial fibrilla tion 05980773 Active 2022 FELISHA hamilton, [facility] 3 14:45:05 Coronary atherosc lerosis 324944124 Active 2022 bare metal stents to circ and LAD 2011 FELISHA hamilton, [facility] 3 14:46:30 Iron deficien cy anemia 54951717 Active 2022 FELISHA hamilton, [facility] 5 07:55:28 Hypothyr oidism 46600575 Active 2022 FELISHA hamilton, [facility], L.L.CJosue 3 14:45:59 Anxiety 35717616 Active 2022 FELISHA DESIR null, [facility] 3 14:46:54 Viral hepatiti s C 38776164 Active 2022 FELISHA DESIR null, [facility] 5 07:55:28 Moderate recurren t major depressi on 19855696 Active 2023 FELISHA DESIR null, [facility] 5 07:55:28 Need for personal care assistan ce 94157301427 298298 Active 2023 FELISHA DESIR null, [facility] 5 07:55:28 Frail elderly 222792478 Active 2023 FELISHA DESIR null, [facility] 5 07:55:28 Seasonal allergic rhinitis 724282196 Active 2023 FELISHA DESIR null, [facility] 5 07:55:28 Chronic pain 72889597 Active 2023 FELISHA DESIR null, [facility] 5 07:55:28 Dementia 34407245 Active 2023 FELISHA DESIR null, [facility] 5 07:55:28 Constipa tion 59674342 Active 2023 FELISHA DESIR null, [facility] 5 07:55:44 Hyperlip idemia 63479388 Active 2024 FELISHA DESIR null, [facility] 5 07:59:38 Occult blood detected in feces 93715472 Active 2024 FELISHA DESIR null, [facility] 5 09:13:35 Mean corpuscu lar volume above referenc e range 854628542 Active 2024 FELISHA hamilton [facility], Diane.L.CJosue 5 09:14:07 Hypercal cemia 59285543 Active 2024 FELISHA hamilton [facility], [place] 5 10:07:49 Vitamin D deficien cy 40143506 Active 2024 Lyn Marmolejo MD [address] [place] [address], [address], [facility], [place] 5 12:54:55 Hyperpar athyroid ism 97397925 Active 2024 Lyn Marmolejo MD [address] [place] [address], [address], [facility], [place] 5 12:54:56 Dysuria 39618207 Active 2024 Dotty hamilton, [facility], L.LJosueCJosue 5 14:08:08 Problem Notes None recorded. Procedures Surgical History Date Name Laterality Status Provider Name and Address Organization Details Recorded Time 2024 Most Recent Mammogram completed FELISHA DESIR [facility], Diane.L.CJosue 5 16:09:39 2024 esophagogastroduodenoscopy completed YANELIS DESIR [facility], L.L.CJosue 5 12:23:16 2024 colonoscopy completed FELISHA DESIR [facility], Diane.LJosueCJosue 5 10:20:11 2023 esophagogastroduodenoscopy completed KIARA DUCKWORTH [facility], L.L.CJosue 4 12:40:14 2023 colonoscopy completed Lyn Marmolejo MD [address] [place] [address] [place], [address], [facility], L.L.CJosue 5 10:19:30 cholecystectomy completed FELISHA DESIR [facility], LJosueLJosueCJosue 3 14:48:40 replacement of mitral valve complete d FELISHA DESIR [facility], LJosueLDaisy 3 14:49:22 section completed FELISHA DESIR [facility] L.L.CJosue 3 15:14:43 Imaging Results None recorded. Procedure Notes None recorded. Medical Equipment None Reported. Allergies Allergen ID Allergen Name Allergen Category Reaction Reaction Severity Criticality Documentation Date Start Date Code Code System Note Provider Name and Address Organization Details Recorded Time 1376 morphine medicatio n Not available Not available Not available 02/07/2023 7052 RxNorm [facility] 3 10:45:47 1377 diltiazem Not available Not available Not available Not available 02/07/2023 3443 RxNorm [facility] L[facility].C[facility]ue 3 10:45:54 4552 Bactrim medicatio n other severe high 04/17/2023 97222 9 RxNorm do not give d/t couma din Lola Marcy [facility] L.L.CJosue 4 13:34:33 28355 diltiazem hydrochlo ride medicatio n Not available Not available Not available 05/26/2023 85868 1 RxNorm Comme nt: Recor ded 12/29 7:56A M by Yanelis Kitchen on, 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 12:26:48 Medications Name Sig Start Date Stop [...] 23 3:43PM by Felisha Desir LPN (Authori pushpad through Lyn Marmolejo MD), Refill Request; Refill Quantity : 30; Tablet; Not Available Not Available Not Available fiber 06/08 completed Not Available Not Available Not Available [facility] Levothyro xine Sodium daily 06/08 completed 03515; Recorded 01/09/20 6:06PM by Shirley Quevedo (Authori pushpad through Travis Sousa MD), Refill Request; Refill Quantity : 30; Tablet; Not Available Not Available Not Available galantami ne 04/17 completed Not Available Not Available Not Available Potassium Chloride ER twice daily 06/08 completed 436; Recorded 03/13/20 22 3:22PM by Felisha Desir LPN (Jacki palomino through Lyn Marmolejo MD), Refill [...] Last Updated DateTime 154.94 cm 28.3 kg/m2 76239.8 6 g 95 % 98 /min 18 /min 97.5 [degF] 133/73 mm[Hg] FELISHA DESIR [facility] 08:56:27 Social History Question Answer Notes LastModified by [employer] Details LastModified Time Tobacco Smoking Status Former Smoker FELISHA DESIR [facility] 04/17/2023 14:48:01 What Was The Date Of Your Most Recent Tobacco Screening? 05/27/2025 [email or web address] Information not available 05/27/2025 Sex: Unknown Functional Status Question Answer Note LastModified by [employer] Details LastModified Time Do you use any illicit or recreational drugs? No Information not available 04/17/2023 Do you or have you ever used any other forms of tobacco or nicotine? No [email or web address] Information not available 06/29/2023 What is your level of alcohol consumption? None [email or web address] Information not available 04/17/2023 Mental Status None [...] MDCK, quadrivalent, PF 2 completed FELISHA hamilton, [facility] 10/10/2024 08:38:58 COVID-19, mRNA, LNP-S, PF, 100 mcg/0.5mL dose or 50 mcg/0.25mL dose 1 completed FELISHA hamilton [facility] 10/10/2024 08:38:58 COVID-19, mRNA, LNP-S, PF, 100 mcg/0.5mL dose or 50 mcg/0.25mL dose 1 completed FELISHA hamilton, [facility] 10/10/2024 08:38:58 COVID-19, mRNA, LNP-S, PF, 100 mcg/0.5mL dose or 50 mcg/0.25mL dose 2 completed FELISHA hamilton [facility] 10/10/2024 08:38:58 Pneumococcal conjugate PCV20, polysaccharide ZIM906 conjugate, adjuvant, PF 3 completed FELISHA hamilton, [facility] 10/10/2024 08:38:58 COVID-19, mRNA, LNP-S, bivalent, PF, 50 mcg/0.5 mL or 25mcg/0.25 mL dose 3 completed FELISHA hamilton [facility] 10/10/2024 08:38:58 pneumococcal polysaccharide PPV23 3 completed FELISHA DESIR null, [facility] 04/17/2023 12:02:00 Tdap 1 completed FELISHA DESIR null, [facility] 10/10/2024 08:38:58 Influenza, split virus, trivalent, PF 3 completed FELISHA DESIR null, [facility] 04/17/2023 12:02:00 influenza, split (incl. purified surface antigen) 0 completed FELISHA DESIR null, [facility] 04/17/2023 12:02:00 Hep A, adult 1 completed [facility] 10/10/2024 08:38:58 Hep A, adult 9 completed FELISHA DESIR null, [facility] 10/10/2024 08:38:58 Influenza, split virus, quadrivalent, PF 1 completed FELISHA DESIR null, [facility] 10/10/2024 08:38:58 Influenza, split virus, quadrivalent, PF 9 completed FELISHA DESIR null, [facility] 10/10/2024 08:38:58 Influenza, MDCK, trivalent, PF 4 completed FELISHA DESIR null, [facility] 10/10/2024 08:38:58 Influenza, MDCK, quadrivalent, preservative 3 completed FELISHA DESIR null, [facility] 10/10/2024 08:38:58 pneumococcal polysaccharide PPV23 8 completed Lola hamilton, [facility] 07/02/2024 08:41:52 Influenza, split virus, quadrivalent, PF 8 completed Lola hamilton, [facility] 07/02/2024 08:41:52 zoster recombinant 3 completed Lola hamilton, [facility] 07/02/2024 14:52:40 COVID-19, mRNA, LNP-S, PF, 50 mcg/0.5 mL 4 completed FELISHA hamilton, [facility] 10/10/2024 08:38:58 Influenza, MDCK, trivalent, preservative 4 completed FELISHA hamilton, [facility] 10/10/2024 08:38:58 Past Encounters Encounter ID Performer Location Encounter Start Date Encounter Closed Date Diagnosis/Indication Diagnosis SNOMED-CT Code Diagnosis ICD10 Code Diagnosis IMO Codes Diagnosis Note [id number] Lyn Marmolejo MD [facility] ([facility]) [address] [place] [address] 5 06/05/2025 11:28:33 06/08/2025 12:35:39 Hypothyroidism 16595630 E03.9 Viral screening 24218034 4 Z11.59 9988304 Physical examination 588 0005 Z00.00 512398 Long-term current use of drug therapy 987256299 Z79.177 [id number] Lyn Marmolejo MD [facility] ([facility]) [address] [place] [address] 5 06/11/2025 10:52:49 06/12/2025 12:43:36 Hypercalcemia 49894671 E83.52 [id number] Lyn Marmolejo MD [facility] ([facility]) [address] [place] [address] [phone] 5 06/24/2025 12:18:01 06/30/2025 13:41:59 Hyperparathyroidism 24329644 E21.3 99999 corrected and ionized calcium are normalgfr 52 and stable Vitamin D deficiency 347 27377 E55.9 42198 [id number] Lyn Marmolejo MD [facility] ([facility]) [address] [place] [address] 07/01/2025 10:24:23 07/02/2025 11:29:38 Atrial fibrillation 17994554 I48.91 warfarin therapy [id number] Lyn Marmolejo MD [facility] ([facility]) [address] [place] [address] 07/03/2025 08:14:55 07/13/2025 10:06:37 Benign essential hypertension 6532827 I10 Coronary atherosclerosis 044620912 I25.119 Atrial fibrillation 4943 6004 I48.91 warfarin therapyd/c naproxen d/t hx of bleeding Hyperlipidemia 86164108 E78.00 Hypothyroidism 80637082 E03.9 Hyperparathyroidism 6699 9008 E21.3 40174 Health Concerns Section Related Observation LastModified by Organization Detai ls LastModified Time None Recorded Concern Status LastModified by Organization Details LastModified Time None Recorded Payers Encounter Date Sequence Insurance Name Policy Number Policy Hernandez Covered Member ID Hernandez Member ID Guarantor Name 07/03/2025 1 [place]ANT[place] - PPO) [id number] Odilia Ulloa [id number] Odilia Ulloa 07/03/2025 2 [place] Odiila Ulloa [id number] Odilia Ulloa Notes Date Note Type Note [...] Patient seen today by Dr. Marmolejo at [facility] Lyn Marmolejo MD [address] [place] [address], [phone], [facility], [place] 07/08/2025 21:05:35 OBGyn Episode No OBEpisode recorded.
--- OUTSIDE RECORDS SUMMARY | 2025-09-25 08:26 | XMS_ITS | Encounter Summary ---
Author Organization [facility] Address [address] [place] [address] Care Team Providers Care Child Care Teacher Name Role Phone Rico Muñiz MD, Sharan Jaime Primary Care Provider Encounter Details Date Type Department Care Team (Late st Contact Info) Description 06/24/2001 Outpatient Historical [facility] Serge Arrington MD [address] 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
--- OUTSIDE RECORDS SUMMARY | 2025-09-25 08:26 | XMS_ITS | Encounter Summary ---
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
--- OUTSIDE RECORDS SUMMARY | 2025-09-25 08:26 | XMS_ITS | Encounter Summary ---
Author Organization [facility] Address [address] [place] [address] Care Team Providers Care Hammerer Helper Name Role Phone Rico Muñiz MD, Sharan Jaime Primary Care Provider Encounter Details Date Type Department Care Team (Latest Contact Info) Description 06/24/2001 Outpatient Historical [facility] [place] [address] [place] [address] Serge Arrington MD [address] [place] [address] Unspecified congenital anomaly of heart (Primary Dx) Social History Tobacco Use Types Packs/Day Years Used Date Smoking Tobacco: Never Assessed Comments Unknown Sex and Gender Information Value Date Recorded Sex Assigned at Not on file 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
--- OUTSIDE RECORDS SUMMARY | 2025-09-25 08:26 | XMS_ITS | Continuity of Care Document ---
Author Organization DAI Kenneth Haas [facility], [facility], [facility] Address [address] [place] [address] Care Team Providers Care Wharf Tender Helper Name Role Phone LYN MARMOLEJO Primary Care Provider [phone] Assessment No assessment recorded. Plan of Treatment Reminders Order Date Submit Date Provider Last Modified By Organization Details Last Modified Time Details Appointments JAIL VISIT 2024 08:50A M Lyn Marmolejo MD Not available Not available Not available Lab CMP, serum or plasma - ORDERS FROM [facility] 2024 025 [facility], [address] [facility], [place], [address], 09/09/2025 10:43:32 Referral None recorded . Procedures None recorded . Surgeries None recorded . Imaging None recorded . Medication Orders None recorded . Patient TargetsNo targets recorded. Patient InstructionsNo instructions recorded. Reason for Referral None Reported. Results Created Date Observation Date Name Description Value Unit Range Abnormal Flag Note LastModifiedBy Organization Detail LastModifiedTime 08/17/2008/17/2025 CBC WBC 6.3 x10 4.0-10 .5 Not Available [facility] [address] [facility], [place], [address], 08/17/2025 15:57:00 08/17/20 25 08/17/2025 CBC RBC 3.45 x10 3.50-5 .50 low Not Available [facility] [address] [facility] [facility], [place], [address], 08/17/2025 15:57:00 08/17/20 25 08/17/2025 CBC HGB 12.4 g/dL 12.0-1 6.0 Not Available [facility] [address] [facility], [place], [address], 08/17/2025 15:57:00 08/17/20 25 08/17/2025 CBC HCT 37.7 % 37.0-4 7.0 Not Available [facility] [address] [facility], [place], [address], 08/17/2025 15:57:00 08/17/2008/17/2025 CBC MCV 109.2 fL 80.0-9 9.9 high Not Available [facility] [address] [facility], [place], [address], 08/17/2025 15:57:00 08/17/20 25 08/17/2025 CBC MCH 36.0 pg 27.0-3 2.0 high Not Available [facility] [address] [facility], [place], [address], 08/17/2025 15:57:00 08/17/20 25 08/17/2025 CBC MCHC 32.9 g/dL 32.0-3 6.0 Not Available [facility] [address] [facility], [place], [address], 08/17/2025 15:57:00 08/17/20 25 08/17/2025 CBC RDW 12.7 % 11.5-1 4.5 Not Available [facility] [address] [facility], [place], [address], 08/17/2025 15:57:00 08/17/20 25 08/17/2025 CBC plt 239.0 x10 140.0- 451.0 Not Available [facility] [address] [facility], [place], [address], 08/17/2025 15:57:00 08/17/20 25 08/17/2025 CBC lymphocytes % 27.7 % 20.0-5 0.0 Not Available [facility] [address] [facility], [place], [address], 08/17/2025 15:57:00 08/17/20 25 08/17/2025 CBC granulcytes % 56.9 % 30.0-7 0.0 Not Available [facility] [address] [facility], [place], [address], 08/17/2025 15:57:00 08/17/20 25 08/17/2025 CBC monocytes % 10.1 % 2.0-16 .0 Not Available [facility] [address] [facility] [address], [place], [address], 08/17/2025 15:57:00 08/17/20 25 08/17/2025 CBC granulcytes# 3.6 x10 Not Cyndi ilable [facility] [address] [facility], [place], [address], 08/17/2025 15:57:00 08/17/20 25 08/17/2025 CBC lymphocytes # 1.8 x10 Not Available [facility] [address] [facility], [place], [address], 08/17/2025 15:57:00 08/17/20 25 08/17/2025 CBC monocytes # 0.6 x10 Not Avai lable [facility] [address] [place] [facility], [place], [address], 08/17/2025 15:57:00 08/17/20 25 08/17/2025 TSH TSH 0.81 uIU/m L 0.49-3 .82 Not Available [facility] [address], [place], [address], 08/17/2025 16:04:05 08/17/20 25 08/18/2025 PERIP HERAL BLOOD SMEAR REVIE W peripheral blood smear review Macro cytos is 1 + Ovalo cytes 1 + Polyc hroma mikhail 1 + Revie w of the perip heral smear revea ls adequ ate numbe rs of plate lets. Revie w of perip heral smear confi jace autom ated resul ts. Not Available [facility] [address], [place], [address], 08/18/2025 15:11:08 08/17/20 25 08/19/2025 METHY LMALO [...] 1 nmol/ L Not Available [facility] [address] [address] [place], [address], 08/20/2025 00:38:15 08/17/20 25 08/19/2025 METHY LMALO [...] luisito purpo ses. Not Available [facility] [address] [address] [place], [address], 08/20/2025 00:38:15 08/17/2008/19/2025 PROTE IN, TOTAL AND PROTE IN ELECT ROPHO RESIS W/ REFL [place] protein, total 7.1 g/dL 6.1-8. 1 normal Not Available [facility] [address] [address] [place], [address], 08/20/2025 00:38:16 08/17/20 25 08/19/2025 PROTE IN, TOTAL AND PROTE IN ELECT ROPHO RESIS W/ REFL [place] albumin 4.5 g/dL 3.8-4. 8 normal Not Available [facility] [place] [address] [place], [address], 08/20/2025 00:38:16 08/17/20 25 08/19/2025 PROTE IN, TOTAL AND PROTE IN ELECT ROPHO RESIS W/ REFL [place] alpha 1 globulin 0.3 g/dL 0.2-0. 3 normal Not Available [address], [address], 08/20/2025 00:38:16 08/17/20 25 08/19/2025 PROTE IN, TOTAL AND PROTE IN ELECT ROPHO RESIS W/ REFL [place] alpha 2 globulin 0.5 g/dL 0.5-0. 9 normal Not Available [address], [address], 08/20/2025 00:38:16 08/17/20 25 08/19/2025 PROTE IN, TOTAL AND PROTE IN ELECT ROPHO RESIS W/ REFL [place] beta 1 globulin 0.4 g/dL 0.4-0. 6 normal Not Available [address], [address], 08/20/2025 00:38:16 08/17/20 25 08/19/2025 PROTE IN, TOTAL AND PROTE IN ELECT ROPHO RESIS W/ REFL [place] beta 2 globulin 0.3 g/dL 0.2-0. 5 normal Not Available [address], [address], 08/20/2025 00:38:16 08/17/20 25 08/19/2025 PROTE IN, TOTAL AND PROTE IN ELECT ROPHO RESIS W/ REFL [place] gamma globulin 1.1 g/dL 0.8-1. 7 normal Not Available [address], [address], 08/20/2025 00:38:16 08/17/20 25 08/19/2025 PROTE IN, TOTAL AND PROTE IN ELECT ROPHO RESIS W/ REFL [place] interpretati on No restr icted band (M-sp mera) seen. Not Available [facility] [address], [address], 08/20/2025 00:38:16 08/17/2008/19/2025 PTH, INTAC T (ICMA [...] or Low Joie l High Not Available [facility] [address], [address], 08/20/2025 00:38:16 08/17/20 25 08/19/2025 PTH, INTAC T (ICMA ) AND IONIZ ED CALCI UM calcium 10.2 mg/dL 8.6-10 .4 normal Not Available [address], [address], 08/20/2025 00:38:16 08/17/20 25 08/19/2025 PTH, INTAC T (ICMA ) AND IONIZ ED CALCI UM calcium, ionized 5.6 mg/dL 4.7-5. 5 high Not Available [employer] [address], [address], 08/20/2025 00:38:16 08/17/2008/19/2025 T4, FREE T4, free 1.9 NG/dL 0.8-1. 8 high Not Available [employer] [address], [address], 08/20/2025 00:38:17 08/17/20 25 08/19/2025 VITAM IN B12 vitamin B12 >2000 pg/mL 200-11 00 high Not Available [employer] [facility] [address] [place], [address], 08/20/2025 00:38:18 08/17/20 25 08/17/2025 PT/IN R Protime 21.5 Not Available [facility] ([facility]) [address] [place], [address], 08/17/2025 14:33:48 08/17/20 25 08/17/2025 PT/IN R INR 1.8 Not Available [facility] ([facility]) [address] [place], [address], 08/17/2025 14:33:48 09/02/20 25 09/02/2025 PT/IN R Protime 29.0 Not Available [facility] ([facility]) [address] [place], [address], 09/02/2025 13:17:30 09/02/20 25 09/02/2025 PT/IN R INR 2.4 Not Available [facility] ([facility]) [address] [place], [address], 09/02/2025 13:17:30 09/09/20 25 09/09/2025 CMP (FEMA LE) glucose 93.0 mg/dL 60.0-9 9.0 Not Available [facility] [address] [facility] [address], [place], [address], 09/09/2025 10:43:31 09/09/20 25 09/09/2025 CMP (FEMA LE) BUN (blood urea nitrogen) 20.0 mg/dL 10.0-2 6.0 Not Available [facility] [address] [facility] [address], [place], [address], 09/09/2025 10:43:31 09/09/20 25 09/09/2025 CMP (FEMA LE) creatinine (serum) 0.9 mg/dL 0.4-1. 5 Not Available [facility] [address] [facility] [place], [address], 09/09/2025 10:43:31 09/09/20 25 09/09/2025 CMP (FEMA LE) BUN/creatini ne ratio 22.22 ratio Not Available [facility] [address] [facility], [place], [address], 09/09/2025 10:43:31 09/09/20 25 09/09/2025 CMP (FEMA LE) eGFR calculated 64.9 Not Available [facility] [address] [facility], [place], [address], 09/09/2025 10:43:31 09/09/20 25 09/09/2025 CMP (FEMA LE) total protein 7.5 g/dL 6.0-8. 5 Not Available [facility] [address] [facility], [place], [address], 09/09/2025 10:43:31 09/09/20 25 09/09/2025 CMP (FEMA LE) total bilirubin 1.1 mg/dL 0.2-1. 3 Not Available [facility] [address] [facility], [place], [address], 09/09/2025 10:43:31 09/09/20 25 09/09/2025 CMP (FEMA LE) albumin 5.0 g/dL 3.5-5. 5 Not Available [facility] [address] [facility] [place], [address], 09/09/2025 10:43:31 09/09/20 25 09/09/2025 CMP (FEMA LE) globulin 2.5 calc Not Available [facility] [address] [facility], [place], [address], 09/09/2025 10:43:31 09/09/20 25 09/09/2025 CMP (FEMA LE) AST (SGOT) 35.0 U/L 0.0-46 .0 Not Available [facility] [address] [facility] [address], [place], [address], 09/09/2025 10:43:31 09/09/20 25 09/09/2025 CMP (FEMA LE) altv (SGPT) 17.0 U/L 13.0-6 9.0 normal Not Available [facility] [address] [facility] [address], [place], [address], 09/09/2025 10:43:31 09/09/20 25 09/09/2025 CMP (FEMA LE) A/G ratio 2.0 ratio Not Available [facility] [address] [facility] [address], [place], [address], 09/09/2025 10:43:31 09/09/20 25 09/09/2025 CMP (FEMA LE) ALP phos 77.0 U/L 30.0-1 40.0 normal Not Available [facility] [address] [facility], [place], [address], 09/09/2025 10:43:31 09/09/20 25 09/09/2025 CMP (FEMA LE) calcium 10.4 mg/dL 8.4-10 .5 Not Available [facility] [address] [facility] [address], [place], [address], 09/09/2025 10:43:31 09/09/20 25 09/09/2025 CMP (FEMA LE) sodium 139.0 mmol/ L 136.0- 145.0 Not Available [facility] [address] [facility] [address], [place], [address], 09/09/2025 10:43:31 09/09/20 25 09/09/2025 CMP (FEMA LE) potassium 4.2 mmol/ L 3.5-5. 1 Not Available [facility] [address] [facility] [address], [place], [address], 09/09/2025 10:43:31 09/09/20 25 09/09/2025 CMP (FEMA LE) chloride 105.0 mmol/ L 98.0-1 10.0 normal Not Available [facility] [address] [facility], [place], [address], 09/09/2025 10:43:31 09/09/20 25 09/09/2025 CMP (FEMA LE) C02 28.0 mmol/ L 22.0-3 1.0 Not Available [facility] [address] [facility] [place], [address], 09/09/2025 10:43:31 09/09/20 25 09/09/2025 CMP (FEMA LE) anion gap 6.0 calc Not Available [facility] [address] [facility] [place], [address], 09/09/2025 10:43:31 09/09/20 25 09/09/2025 CMP (FEMA LE) osmolality 289.3 calc Not Available [facility] [address] [facility], [place], [address], 09/09/2025 10:43:31 09/09/20 25 09/08/2025 US, echoc ardio gram, trans thora cic, compl ete, w/ color flow No observ ation record ed. [facility] [address], [place], [address], 09/11/2025 09:19:21 09/15/20 25 09/15/2025 MAMMO , scree ilya, digit al, bilat eral No observ ation record ed. [email or web address] [facility] [address] [place], [address], 09/16/2025 16:09:54 Result Notes None recorded. Problems Name Problem SNOMED Code Status Onset Date Resolution Date Notes Provider Name and Address Organization Details Recorded Time Depressi ve disorder 01543916 Completed 202010/14/2021 Depressi on - Status is Inactive ; 10/14/20 11:08AM by Maryellen Marmolejo PA-C, Annotati on/Adden dum; Promoted ; acuity set as *; FELISHA hamilton [facility] 5 07:56:57 Herpes zoster 2868587 Completed 202201/02/2025 SHINGLES FELISHA hamilton [facility] 5 07:56:03 Dysthymi a 90965406 Active 2022 DEPRESSI ON WITH ANXIETY FELISHA hamilton [facility] 5 07:55:28 Benign essentia l hyperten jovanni 4953576 Active 2022 FELISHA hamilton [facility] 5 07:55:28 Gastroes ophageal reflux disease 402842047 Active 2022 FELISHA hamilton [facility] 5 07:55:28 Fracture of upper end of humerus 155565331 Completed 202201/02/2025 CLOSED FRACTURE OF PROXIMAL END OF RIGHT HUMERUS, SEQUELA FELISHA hamilton [facility] 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 5 07:56:22 Atrial fibrilla tion 92769546 Active 2022 FELISHA hamilton, [facility] 3 14:45:05 Coronary atherosc lerosis 368908526 Active 2022 bare metal stents to circ and LAD 2011JAMIE hamilton, [facility] 3 14:46:30 Iron deficien cy anemia 33618893 Active 2022 FELISHA hamilton, [facility] 5 07:55:28 Hypothyr oidism 69312595 Active 2022 FELISHA hamilton, [facility] 3 14:45:59 Anxiety 33538278 Active 2022 FELISHA hamilton, [facility] 3 14:46:54 Viral hepatiti s C 63767524 Active 2022 FELISHA hamilton, [facility] 5 07:55:28 Moderate recurren t major depressi on 46563445 Active 2023 FELISHA hamilton, [facility] 5 07:55:28 Need for personal care assistan ce [id number] 511135 Active 2023 FELISHA hamilton, [facility] 5 07:55:28 Frail elderly 374408961 Active 2023 FELISHA hamilton, [facility] 5 07:55:28 Seasonal allergic rhinitis 978574714 Active 2023 FELISHA hamilton [facility] 5 07:55:28 Chronic pain 53394678 Active 2023 FELISHA DESIR null, [facility] 5 07:55:28 Dementia 04196042 Active 2023 FELISHA DESIR null, [facility] 5 07:55:28 Constipa tion 15221875 Active 2023 FELISHA DESIR null, [facility] 5 07:55:44 Hyperlip idemia 94440026 Active 2024 FELISHA DESIR null, [facility] 5 07:59:38 Occult blood detected in feces 41410736 Active 2024 FELISHA DESIR null, [facility] 5 09:13:35 Mean corpuscu lar volume above referenc e range 872129554 Active 2024 FELISHA DESIR null, [facility] 5 09:14:07 Hypercal cemia 96608667 Active 2024 FELISHA DESIR null, [facility] 5 10:07:49 Vitamin D deficien cy 59562679 Active 2024 Lyn Marmolejo MD [address] [place] [address], [address], [facility] 5 12:54:55 Hyperpar athyroid ism 01974096 Active 2024 Lyn Marmolejo MD [address] [place] [address], [address], [facility] 5 12:54:56 Dysuria 62703623 Active 2024 Dotty Celis null, [facility] 5 14:08:08 Problem Notes None recorded. Procedures Surgical History Date Name Laterality Status Provider Name and Address Organization Details Recorded Time 2024 Most Recent Mammogram completed FELISHA [facility] 5 16:09:39 2024 esophagogastroduodenoscopy completed YANELIS WELSH [facility] 5 12:23:16 2024 colonoscopy completed [facility] 5 10:20:11 2023 esophagogastroduodenoscopy completed KIARA DUCKWORTH [facility] 4 12:40:14 2023 colonoscopy completed Lyn Marmolejo MD [address] [place] [address], [phone] [place] [address], L[facility] 5 10:19:30 cholecystectomy completed [facility] 3 14:48:40 replacement of mitral valve complete d [facility] 3 14:49:22 section completed [facility] 3 15:14:43 Imaging Results None recorded. Procedure Notes None recorded. Medical Equipment None Reported. Allergies Allergen ID Allergen Name Allergen Category Reaction Reaction Severity Criticality Documentation Date Start Date Code Code System Note Provider Name and Address Organization Details Recorded Time 1376 morphine medicatio n Not available Not available Not available 02/07/2023 7052 RxNorm Dottylizzie hamilton [facility] 3 10:45:47 1377 diltiazem Not available Not available Not available Not available 02/07/2023 3443 RxNorm Dottylizzie hamilton [facility] 3 10:45:54 4552 Bactrim medicatio n other severe high 04/17/2023 78546 9 RxNorm do not give d/t couma din Lola Marcy hamilton, [facility] 4 13:34:33 06075 diltiazem hydrochlo ride medicatio n Not available Not available Not available 05/26/202345168 1 RxNorm Comme nt: Recor ded 12/29 7:56A M by Yanelis 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, 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, 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 ; Promo talib; Signi fican ce: *; Reaso n: Drug aller gy; ; [facility] 3 12:26:44 98856 morphine sulfate medicatio n Not available Not available Not available 05/26/2023 31185 RxNorm Comme nt: Recor ded 12/29 7:56A M by Yanelis 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 04/17/2023 14:48:01 What Was The Date Of Your Most Recent Tobacco Screening? 05/27/2025 [email or web address] Information not available 05/27/2025 Sex: Unknown Functional Status Question Answer Note LastModified by Organizat ion Details LastModified Time Do you use any illicit or recreational drugs? No [email or web address] Information not available 04/17/2023 Do you or have you ever used any other forms of tobacco or nicotine? No Information not available 06/29/2023 What is your level of alcohol consumption? None [email or web address] Information not available 04/17/2023 Mental Status None recorded. Family History Relationship Description Onset Age of this Age Resolved Age Notes LastModified by Organization Details LastModified Time Unspecified Relation Coronary atherosclero sis [email or web address] Not available 06/29 15:13:48 Medical History No medical history recorded. Gynecological History Statement/Question Response Most Recent Mammogram 09/15/2025 Obstetrics History GPAL:G 0 P 0 0 0 0 Immunizations Vaccine Type Date Status Note Provider Nam e and Address Organization Details Recorded Time Influenza, MDCK, quadrivalent, PF 2 [facility] 10/10/2024 08:38:58 COVID-19, mRNA, LNP-S, PF, 100 mcg/0.5mL dose or 50 mcg/0.25mL dose 1 completed FELISHA hamilton [facility] 10/10/2024 08:38:58 COVID-19, mRNA, LNP-S, PF, 100 mcg/0.5mL dose or 50 mcg/0.25mL dose 1 [facility] 10/10/2024 08:38:58 COVID-19, mRNA, LNP-S, PF, 100 mcg/0.5mL dose or 50 mcg/0.25mL dose 2 completed FELISHA hamilton [facility] 10/10/2024 08:38:58 Pneumococcal conjugate PCV20, polysaccharide OSK615 conjugate, adjuvant, PF 3 completed FELISHA hamilton [facility] 10/10/2024 08:38:58 COVID-19, mRNA, LNP-S, bivalent, PF, 50 mcg/0.5 mL or 25mcg/0.25 mL dose 3 completed FELISHA DESIR null, [facility] 10/10/2024 08:38:58 pneumococcal polysaccharide PPV23 3 completed FELISHA DESIR null, [facility] 04/17/2023 12:02:00 Tdap 1 completed FELISHAJAMIE DESIR [facility], [facility] 10/10/2024 08:38:58 Influenza, split virus, trivalent, PF 3 completed FELISHA DESIR null, [facility] 04/17/2023 12:02:00 influenza, split (incl. purified surface antigen) 0 completed FELISHA DESIR [facility], [facility] 04/17/2023 12:02:00 Hep A, adult 1 completed FELISHAJAMIE DESIR [facility], [facility] 10/10/2024 08:38:58 Hep A, adult 9 completed FELISHA DESIR [facility], [facility] 10/10/2024 08:38:58 Influenza, split virus, quadrivalent, PF 1 completed FELISHA DESIR null, [facility] 10/10/2024 08:38:58 Influenza, split virus, quadrivalent, PF 9 completed FELISHA DESIR null, [facility] 10/10/2024 08:38:58 Influenza, MDCK, trivalent, PF 4 completed FEILSHA DESIR null, [facility] 10/10/2024 08:38:58 Influenza, MDCK, quadrivalent, preservative 3 completed FELISHA hamilton, [facility] 10/10/2024 08:38:58 pneumococcal polysaccharide PPV23 8 completed Lola hamilton, [facility] L[facility]ueL[facility]ueCJosue 07/02/2024 08:41:52 Influenza, split virus, quadrivalent, PF 8 completed Lola hamilton, [facility] 07/02/2024 08:41:52 zoster recombinant 3 completed Lola hamilton, [facility] 07/02/2024 14:52:40 COVID-19, mRNA, LNP-S, PF, 50 mcg/0.5 mL 4 completed FELISHA hamilton, [facility] 10/10/2024 08:38:58 Influenza, MDCK, trivalent, preservative 4 completed FELISHA hamilton [facility] 10/10/2024 08:38:58 Past Encounters Encounter ID Performer Location Encounter Start Date Encounter Closed Date Diagnosis/Indication Diagnosis SNOMED-CT Code Diagnosis ICD10 Code Diagnosis IMO Codes Diagnosis Note [id number] Lyn Marmolejo MD [facility] [address] [place] [id number] 08/17/2025 13:17:17 08/18/2025 09:51:22 History of mechanical prosthetic mitral valve replacement 878112675 Z95.2 Mean corpu scular volume above reference range 239442759 R71.8 791503 Hypercalcemia 93199404 E 83.52 9955 Drug therapy finding 309 626477 Z79.899 83521133 Generalize d anxiety disorder 87525467 F41.1 728374 [id number] Lyn Marmolejo MD [facility] [address] [place] [phone] 09/02/2025 13:16:47 09/03/2025 10:16:00 History of mechanical prosthetic mitral valve replacement 211217823 Z95.2 [id number] Lyn Marmolejo MD [facility] [address] [place] [address] 09/09/2025 09:58:14 09/10/2025 09:52:18 Benign essential hypertension 8647982 I10 Health Concerns Section Related Observation LastModified by Organization Detai ls LastModified Time None Recorded Concern Status LastModified by Organization Details LastModified Time None Recorded Payers Encounter Date Sequence Insurance Name Policy Number Policy Hernandez Covered Member ID Hernandez Member ID Guarantor Name 09/09/2025 1 [place] - [place]PO) [id number] Odilia Ulloa [id number] Odilia Ulloa 09/09/2025 2 [place] Odilia Ulloa [id number] Odilia Ulloa OBGyn Episode No OBEpisode recorded.
--- OUTSIDE RECORDS SUMMARY | 2025-09-25 08:26 | XMS_ITS | Encounter Summary ---
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 Social History Tobacco Use Types Packs/Day Years Used Date Smoking Tobacco: Never Assessed Comments Unknown Sex and Gender Information Value Date Recorded Sex Assigned at Not on file 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
--- OUTSIDE RECORDS SUMMARY | 2025-09-25 08:26 | XMS_ITS | Encounter Summary ---
Author Organization [facility] Address [address] [place] [address] Care Team Providers Care Capacity Management Specialist Name Role Phone Rico Muñiz MD, Sharan Jaime Primary Care Provider Encounter Details Date Type Department Care Team (Latest Contact Info) Description 07/04/2005 Outpatient Historical [facility] [place] [address] [place] [address] Serge Arrington MD [address] [place] [address] HYPERTENSION NOS (Primary Dx) Social History Tobacco Use Types Packs/Day Years Used Date Smoking Tobacco: Never Assessed Comments Unknown Sex and Gender Information Value Date Recorded Sex Assigned at Not on file 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
--- OUTSIDE RECORDS SUMMARY | 2025-09-25 08:26 | XMS_ITS | Continuity of Care Document ---
Author Organization DAI Kenneth Haas [facility] Luis M, Keenan, [facility] ([facility]) Address [address] [place] [address] Care Team Providers Care Administrative Dietitian Name Role Phone LYN MARMOLEJO Primary Care Provider [phone] Assessment No assessment recorded. Plan of Treatment Reminders Order Date Submit Date Provider Last Modified By Organization Details Last Modified Time Details Appointments [facility] VISIT 2024 08:50A M Lyn Marmolejo MD Not available Not available Not available Lab PT/INR 2024 09 025 [facility] ([facility]), [address] [place], [address], 07/09/2025 13:51:09 Referral None recorded . Procedures None recorded . Surgeries None recorded . Imaging None recorded . Medication Orders None recorded . Patient TargetsNo targets recorded. Patient InstructionsNo instructions recorded. Reason for Referral None Reported. Results Created Date Observation Date Name Description Value Unit Range Abnormal Flag Note LastModifiedBy Organization Detail LastModifiedTime 06/11/2006/11/2025 CMP (FEMA LE) glucose 88.0 mg/dL 60.0-9 9.0 Not Available [facility] [address], [address], 06/11/2025 13:16:16 06/11/2006/11/2025 CMP (FEMA LE) BUN (blood urea nitrogen) 25.0 mg/dL 10.0-2 6.0 Not Available [facility] [address] [place], [address], 06/11/2025 13:16:16 06/11/20 25 06/11/2025 CMP (FEMA LE) creatinine (serum) 1.1 mg/dL 0.4-1. 5 Not Available [facility] [address] [facility] [place] [facility], [place], [address], 06/11/2025 13:16:16 06/11/20 25 06/11/2025 CMP (FEMA LE) BUN/creatini ne ratio 22.73 ratio Not Available [facility] [address] [facility] [place] [facility], [place], [address], 06/11/2025 13:16:16 06/11/20 25 06/11/2025 CMP (FEMA LE) eGFR calculated 51.[address] [facility] [address] [facility] [place] [facility], [place], [address], 06/11/2025 13:16:16 06/11/20 25 06/11/2025 CMP (FEMA LE) total protein 7.7 g/dL 6.0-8. 5 Not Available [facility] [address] [facility] [place] [facility], [place], [address], 06/11/2025 13:16:16 06/11/20 25 06/11/2025 CMP (FEMA LE) total bilirubin 0.9 mg/dL 0.2-1. 3 Not Available [facility] [address] [facility] [place] [facility], [place], [address], 06/11/2025 13:16:16 06/11/20 25 06/11/2025 CMP (FEMA LE) albumin 4.6 g/dL 3.5-5. 5 Not Available [facility] [address] [facility] [address] [facility], [place], [address], 06/11/2025 13:16:16 06/11/20 25 06/11/2025 CMP (FEMA LE) globulin 3.1 calc Not Available [facility] [address] [place] [facility], [place], [address], 06/11/2025 13:16:16 06/11/20 25 06/11/2025 CMP (FEMA LE) AST (SGOT) 32.0 U/L 0.0-46 .0 Not Available [facility] [address] [place] [facility] [place], [address], 06/11/2025 13:16:16 06/11/2006/11/2025 CMP (FEMA LE) altv (SGPT) 15.0 U/L 13.0-6 9.0 normal Not Available [facility] [address] [place] [facility] [place], [address], 06/11/2025 13:16:16 06/11/20 25 06/11/2025 CMP (FEMA LE) A/G ratio 1.5 ratio Not Available [facility] [address] [place] [facility], [place], [address], 06/11/2025 13:16:16 06/11/20 25 06/11/2025 CMP (FEMA LE) ALP phos 81.0 U/L 30.0-1 40.0 normal Not Available [facility] [address] [place] [facility], [place], [address], 06/11/2025 13:16:16 06/11/2006/11/2025 CMP (FEMA LE) calcium 10.4 mg/dL 8.4-10 .5 Not Available [facility] [address] [place] [facility], [place], [address], 06/11/2025 13:16:16 06/11/20 25 06/11/2025 CMP (FEMA LE) sodium 142.0 mmol/ L 136.0- 145.0 Not Available [facility] [address] [place] [facility], [place], [address], 06/11/2025 13:16:16 06/11/2006/11/2025 CMP (FEMA LE) potassium 4.7 mmol/ L 3.5-5. 1 Not Available [facility] [address] [facility], [place], [address], 06/11/2025 13:16:16 06/11/2006/11/2025 CMP (FEMA LE) chloride 106.0 mmol/ L 98.0-1 10.0 normal Not Available [facility] [address] [facility], [place], [address], 06/11/2025 13:16:16 06/11/2006/11/2025 CMP (FEMA LE) C02 27.0 mmol/ L 22.0-3 1.0 Not Available [facility] [address] [facility], [place], [address], 06/11/2025 13:16:16 06/11/2006/11/2025 CMP (FEMA LE) anion gap 9.0 calc Not Available [facility] [address] [facility], [place], [address], 06/11/2025 13:16:16 06/11/2006/11/2025 CMP (FEMA LE) osmolality 296.7 calc Not Available [facility] [address] [facility], [place], [address], 06/11/2025 13:16:16 06/11/2006/12/2025 PTH, INTAC T (ICMA [...] Joie l High Not Available [facility] [address] [place] [address] [place], [address], 06/12/2025 15:27:52 06/11/2006/12/2025 PTH, INTAC T (ICMA ) AND IONIZ ED CALCI UM calcium 10.1 mg/dL 8.6-10 .4 normal Not Available [facility] [address] [address] [place], [address], 06/12/2025 15:27:52 06/11/2006/12/2025 PTH, INTAC T (ICMA ) AND IONIZ ED CALCI UM calcium, ionized 5.5 mg/dL 4.7-5. 5 normal Not Available [place] [address] [place], [address], 06/12/2025 15:27:52 06/11/2006/12/2025 VITAM IN D,25- [place],TO [...] /MS is recom gagan d: order code [id number] (vargas ents >2yrs ). See Note 1 Note 1 For addit ional aler surya mclean refer to http: //blayne tobin ics.c om/fa q/FAQ 199 (This link is being provi ded for infor sarika stroud/ connor smart purpo ses only. ) Not Available [facility] [address] [place], [address], 06/12/2025 15:27:54 06/24/20 25 06/24/2025 PT/IN R Protime 40.9 Not Available [facility] ([facility]) [address] [place] [address], [address], 06/24/2025 13:13:54 06/24/20 25 06/24/2025 PT/IN R INR 3.4 Not Available [facility] ([facility]) [address] [place] [address], [address], 06/24/2025 13:13:54 07/02/20 25 07/02/2025 PT/IN R Protime 42.3 Not Available [facility] ([facility]) [address] [place] [address], [address], 07/01/2025 10:25:07 07/02/20 25 07/02/2025 PT/IN R INR 3.5 Not Available [facility] ([facility]) [address] [place] [address], [address], 07/01/2025 10:25:07 07/06/20 25 07/06/2025 PT/IN R Protime 39.5 Not Available [facility] ([facility]) [address] [place] [address], [address], 07/06/2025 11:23:26 07/06/20 25 07/06/2025 PT/IN R INR 3.3 Not Available [facility] ([facility]) [address] [place], [address], 07/06/2025 11:23:26 07/09/2007/09/2025 PT/IN R Protime 34.6 Not Available [facility] ([facility]) [address] [place] [address], [address], 07/09/2025 13:44:17 07/09/20 25 07/09/2025 PT/IN R INR 2.9 Not Available [facility] ([facility]) [address] [place] [address], [address], 07/09/2025 13:44:17 08/05/20 25 08/04/2025 XR, cervi luisito spine , 2 or 3 view No observ ation record ed. [facility] [address] [place], [address], 08/07/2025 13:25:55 08/05/20 25 08/04/2025 XR, shoul vito, 2 or more view No observ ation record ed. [facility] [address] [place], [address], 08/07/2025 13:25:55 09/09/20 25 09/08/2025 US, echoc ardio gram, trans thora cic, compl ete, w/ color flow No observ ation record ed. [facility] [address] [place], [address], 09/11/2025 09:19:21 09/15/2009/15/2025 MAMMO , scree ilya, digit al, bilat eral No observ ation record ed. [email or web address] [place] [address] [address] [place], [address], 09/16/2025 16:09:54 Result Notes None recorded. Problems Name Problem SNOMED Code Status Onset Date Resolution Date Notes Provider Name and Address Organization Details Recorded Time Depressi ve disorder 48129779 Completed 202010/14/2021 Depressi on - Status is Inactive ; 10/14/20 11:08AM by Maryellen Marmolejo PA-C, Annotati on/Adden dum; Promoted ; acuity set as *; FELISHA hamilton, [facility] 5 07:56:57 Herpes zoster 6207617 Completed 202201/02/2025 SHINGLES FELISHA hamilton, [facility] 5 07:56:03 Dysthymi a 00694616 Active 2022 DEPRESSI ON WITH ANXIETY FELISHA hamilton [facility] 5 07:55:28 Benign essentia l hyperten jovnani 4976223 Active 2022 FELISHA hamilton [facility] 5 07:55:28 Gastroes ophageal reflux disease 854833494 Active 2022 FELISHA hamilton [facility] 5 07:55:28 Fracture of upper end of humerus 405621606 Completed 202201/02/2025 CLOSED FRACTURE OF PROXIMAL END OF RIGHT HUMERUS, SEQUELA FELISHA hamilton [facility] 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 5 07:56:22 Atrial fibrilla tion 19491088 Active 2022 FELISHA hamilton [facility] 3 14:45:05 Coronary atherosc lerosis 213358044 Active 2022 bare metal stents to circ and LAD 2011 FELISHA DESIR alfonso, [facility] 3 14:46:30 Iron deficien cy anemia 84803403 Active 2022 FELISHA DESIR null, [facility] 5 07:55:28 Hypothyr oidism 39620527 Active 2022 FELISHA DESIR null, [facility] 3 14:45:59 Anxiety 31022594 Active 2022 FELISHA DESIR null, [facility] 3 14:46:54 Viral hepatiti s C 97624670 Active 2022 FELISHA hamilton, [facility] 5 07:55:28 Moderate recurren t major depressi on 90693733 Active 2023 FELISHA DESIR null, [facility] 5 07:55:28 Need for personal care assistan ce [id number] 127890 Active 2023 FELISHA hamilton, [facility] 5 07:55:28 Frail elderly 860631446 Active 2023 FELISHA hamilton, [facility] 5 07:55:28 Seasonal allergic rhinitis 764927074 Active 2023 FELISHA DESIR null, [facility] 5 07:55:28 Chronic pain 28936085 Active 2023 FELISHA DESIR null, [facility] 5 07:55:28 Dementia 62812873 Active 2023 FELISHA hamilton, [facility] 5 07:55:28 Constipa tion 63255405 Active 2023 FELISHA hamilton, [facility] 5 07:55:44 Hyperlip idemia 78569061 Active 2024 FELISHA DESIR alfonso, [facility] 5 07:59:38 Occult blood detected in feces 35474571 Active 2024 FELISHA DESIR alfonso, [facility] 5 09:13:35 Mean corpuscu lar volume above referenc e range 228321781 Active 2024 FELISHA hamilton, [facility] 5 09:14:07 Hypercal cemia 94004281 Active 2024 FELISHA hamilton [facility] 5 10:07:49 Vitamin D deficien cy 64571952 Active 2024 Lyn Marmolejo MD [address] [place] [address], [address], [facility] 5 12:54:55 Hyperpar athyroid ism 46334260 Active 2024 Lyn Marmolejo MD [address] [place] [address], [phone], [facility] 5 12:54:56 Dysuria 09333251 Active 2024 Dotty Celis [facility] 5 14:08:08 Problem Notes None recorded. Procedures Surgical History Date Name Laterality Status Provider Name and Address Organization Details Recorded Time 2024 Most Recent Mammogram completed FELISHA DESIR [facility] 5 16:09:39 2024 esophagogastroduodenoscopy completed YANELIS NE [facility] 5 12:23:16 2024 colonoscopy completed FELISHA [facility] 5 10:20:11 2023 esophagogastroduodenoscopy completed JESSIKAPRESTON ILYA WEINERY [facility] 4 12:40:14 2023 colonoscopy completed Lyn Marmolejo MD [address] [place] [address], [phone], [facility] 5 10:19:30 cholecystectomy completed [facility] 3 14:48:40 replacement of mitral valve complete d [facility] 3 14:49:22 section completed [facility] 3 15:14:43 Imaging Results None recorded. Procedure Notes None recorded. Medical Equipment None Reported. Allergies Allergen ID Allergen Name Allergen Category Reaction Reaction Severity Criticality Documentation Date Start Date Code Code System Note Provider Name and Address Organization Details Recorded Time 1376 morphine medicatio n Not available Not available Not available 02/07/2023 7052 RxNorm Dotty Celis [facility] 3 10:45:47 1377 diltiazem Not available Not available Not available Not available 02/07/2023 3443 RxNorm Dotty Vimal [facility] 3 10:45:54 4552 Bactrim medicatio n other severe high 04/17/2023 74331 9 RxNorm do not give d/t couma din Lola Vidal [facility] 4 13:34:33 82148 diltiazem hydrochlo ride medicatio n Not available Not available Not available 05/26/202352318 1 RxNorm Comme nt: Recor ded 12/29 7:56A M by Yanelis Kitchen on, MAINTENANCE MECHANIC 2ND SHIFT, 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 ; Promo talib; Signi dolores ce: *; Reaso n: Drug aller gy; ; FELISHA hamilton, [facility] 3 12:26:44 72863 morphine sulfate medicatio n Not available Not available Not available 05/26/2023 44918 RxNorm Comme nt: Recor ded 12/29 7:56A M by Yanelis Kitchen on, MAINTENANCE MECHANIC 2ND SHIFT, 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 ; Promo talib; Trey bernal ce: *; Reaso n: Drug aller gy; ; FELISHA hamilton, [facility] 3 12:26:48 Medications Name [...] THSC Levothyro xine Sodium daily 06/08 completed 71975; Recorded 01/09/20 6:06PM by Shirley Quevedo (Authori [...] Tobacco Smoking Status Former Smoker FELISHA DESIR [facility], [facility] 04/17/2023 14:48:01 What Was The Date Of Your Most Recent Tobacco Screening? 05/27/2025 [email or web address] Information not available 05/27/2025 Sex: Unknown Functional Status Question Answer Note LastModified by Organizat ion Details LastModified Time Do you use any illicit or recreational drugs? No [email or web address] Information not available 04/17/2023 Do you or have you ever used any other forms of tobacco or nicotine? No [email or web address] Information not available 06/29/2023 What is your level of alcohol consumption? None [email or web address] Information not available 04/17/2023 Mental Status None [...] Influenza, MDCK, quadrivalent, PF 2 [facility] 10/10/2024 08:38:58 COVID-19, mRNA, LNP-S, PF, 100 mcg/0.5mL dose or 50 mcg/0.25mL dose 1 completed [facility] 10/10/2024 08:38:58 COVID-19, mRNA, LNP-S, PF, 100 mcg/0.5mL dose or 50 mcg/0.25mL dose 1 completed [facility] 10/10/2024 08:38:58 COVID-19, mRNA, LNP-S, PF, 100 mcg/0.5mL dose or 50 mcg/0.25mL dose 2 completed FELISHA hamilton [facility] 10/10/2024 08:38:58 Pneumococcal conjugate PCV20, polysaccharide [id number] conjugate, adjuvant, PF 3 completed [facility] 10/10/2024 08:38:58 COVID-19, mRNA, LNP-S, bivalent, PF, 50 mcg/0.5 mL or 25mcg/0.25 mL dose 3 completed FELISHA hamilton [facility] 10/10/2024 08:38:58 pneumococcal polysaccharide PPV23 3 completed FELISHA DESIR null, [facility] 04/17/2023 12:02:00 Tdap 1 completed FELISHA DESIR null, [facility] 10/10/2024 08:38:58 Influenza, split virus, trivalent, PF 3 completed FELISHA DESIR null, [facility] 04/17/2023 12:02:00 influenza, split (incl. purified surface antigen) 0 completed FELISHA DESIR null, [facility] 04/17/2023 12:02:00 Hep A, adult 1 completed FELISHA DESIR null, [facility] [...] MDCK, quadrivalent, preservative 3 completed [facility] 10/10/2024 08:38:58 pneumococcal polysaccharide PPV23 8 completed Lola Vidal null, [facility] [...] ICD10 Code Diagnosis IMO Codes Diagnosis Note [id number] Lyn Marmolejo MD [facility] ([facility]) [address] [place] [phone] 06/11/2025 10:52:49 06/12/2025 12:43:36 Hypercalcemia 31123658 E83.52 [id number] Lyn Marmolejo MD [facility] [address] [place] [phone] 06/24/2025 12:18:01 06/30/2025 13:41:59 Hyperparathyroidism 12572675 E21.3 07433 corrected and ionized calcium are normalgfr 52 and stable Vitamin D deficiency 347 63171 E55.9 03819 [id number] Lyn Marmolejo MD [facility] ([facility]) [address] [place] [phone] 07/01/2025 10:24:23 07/02/2025 11:29:38 Atrial fibrillation 27173756 I48.91 warfarin therapy [id number] Lyn Marmolejo MD [facility] ([facility]) [address] [place] [phone] 5 07/03/2025 08:14:55 07/13/2025 10:06:37 Benign essential hypertension 8230550 I10 Coronary atherosclerosis 374408067 I25.119 Atrial fibrillation 4943 6004 I48.91 warfarin therapyd/c naproxen d/t hx of bleeding Hyperlipidemia 56812252 E78.00 Hypothyroidism 70965603 E03.9 Hyperparathyroidism 6699 9008 E21.3 80435 [id number] Lyn Marmolejo MD [facility] ([facility]) [address] [place] [phone] 5 07/06/2025 11:22:40 07/07/2025 09:33:46 History of mechanical prosthetic mitral valve replacement 130466611 Z95.2 [id number] Lyn Marmolejo MD [facility] ([facility]) [address] [place] [phone] 07/09/2025 13:42:58 07/10/2025 14:24:59 Atrial fibrillation 60706496 I48.91 warfarin therapyd/c naproxen d/t hx of bleeding Health Concerns Section Related Observation LastModified by Organization Detai ls LastModified Time None Recorded Concern Status LastModified by Organization Details LastModified Time None Recorded Payers Encounter Date Sequence Insurance Name Policy Number Policy Hernandez Covered Member ID Hernandez Member ID Guarantor Name 07/09/2025 1 [place]ANT[place] - [place]PO) [id number] Odilia Ulloa [id number] Odilia Ulloa 07/09/2025 2 [place] Odilia Ulloa [id number] Odilia Ulloa OBGyn Episode No OBEpisode recorded.
--- OUTSIDE RECORDS SUMMARY | 2025-09-25 08:26 | XMS_ITS | Encounter Summary ---
Author Organization [facility] Address [address] [place] [address] Care Team Providers Care Biostatistics Manager Name Role Phone Rico Muñiz MD, Sharan Jaime Primary Care Provider Encounter Details Date Type Department Care Team (Latest Contact Info) Description 10/27/1998 Outpatient Historical [facility] Sharan Gómez Jr., MD [address] [place] [address] Unspecified essential hypertension (Primary Dx); Chest pain, unspecified; Pneumonia, organism unspecified(486) Social History Tobacco Use Types Packs/Day Years Used Date Smoking Tobacco: Never Assessed Comments Unknown Sex and Gender Information Value Date Recorded Sex Assigned at Not on file 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
--- OUTSIDE RECORDS SUMMARY | 2025-09-25 08:26 | XMS_ITS | Encounter Summary ---
Author Organization [facility] Address [address] [place] [address] Care Team Providers Care Palliative Care Coordinator Name Role Phone iRco Muñiz MD, Sharan Jaime Primary Care Provider Encounter Details Date Type Department Care Team (Latest Contact Info) Description 06/29/2004 Outpatient Historical [facility] Int Luis AFaisal Lopez [facility] [place] [address] [place] [address] Serge Arrington MD [address] [place] [address] Mitral valve disorder (Primary Dx); HYPERTENSION NOS; HYPERLIPIDEMIA NEC/NOS; OSTEOPOROSIS NOS Social History Tobacco Use Types Packs/Day Years Used Date Smoking Tobacco: Never Assessed Comments Unknown Sex and Gender Information Value Date Recorded Sex Assigned at Not on file 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
--- OUTSIDE RECORDS SUMMARY | 2025-09-25 08:26 | XMS_ITS | Continuity of Care Document ---
Author Organization [facility] Address [address] [place] [address] Care Team Providers Care Trust Officer Name Role Phone LYN MARMOLEJO Primary Care Provider Assessment No assessment recorded. Plan of Treatment Reminders Order Date Submit Date Provider Last Modified By Organization Details Last Modified Time Details Appointments RESIDENTIAL VISIT 2024 08:50A M Lyn Marmolejo MD Not available Not available Not available Lab None recorded. Referral None recorded. Procedures None recorded. Surgeries None recorded. Imaging XR, cervical spine, 2 or 3 view - flexion/e xtension views [address]), [address] [place] [address], [phone], 08/04/2025 15:14:44 XR, shoulder, 2 or more view [address]), [address] [place] [address], [phone], 08/04/2025 15:14:44 Medication Orders Medrol (Chema) 4 mg tablets in a dose pack 2024 [facility], [address] [place] [address], [address], 08/17/2025 14:26:13 Patient TargetsNo targets recorded. Patient InstructionsNo instructions recorded. Reason for Referral None Reported. Results Created Date Observation Date Name Description Value Unit Range Abnormal Flag Note LastModifiedBy Organization Detail LastModifiedTime 07/06/20 25 07/06/2025 PT/IN R Protime 39.5 Not Available [facility] ([facility]) [address] [place], [address], 07/06/2025 11:23:26 07/06/20 25 07/06/2025 PT/IN R INR 3.3 Not Available [facility] ([facility]) [address] [place], [address], 07/06/2025 11:23:26 07/09/20 25 07/09/2025 PT/IN R Protime 34.6 Not Available [facility] ([facility]) [address] [place], [address], 07/09/2025 13:44:17 07/09/20 25 07/09/2025 PT/IN R INR 2.9 Not Available [facility] ([facility] [address] [place], [address], 07/09/2025 13:44:17 07/14/20 25 07/14/2025 URINA LYSIS WITH MICRO color YELLOW Not Available [facility] [address] [facility], [place], [address], 07/14/2025 14:52:32 07/14/20 25 07/14/2025 URINA LYSIS WITH MICRO clarity CLEAR Not Available [facility] [address] [facility], [place], [address], 07/14/2025 14:52:32 07/14/20 25 07/14/2025 URINA LYSIS WITH MICRO glu NEGATI VE Not Available [facility] [address] [facility] [address], [place], [address], 07/14/2025 14:52:32 07/14/20 25 07/14/2025 URINA LYSIS WITH MICRO bili NEGATI VE Not Available [facility] [address], [place], [address], 07/14/2025 14:52:32 07/14/20 25 07/14/2025 URINA LYSIS WITH MICRO ket NEGATI VE Not Available [facility] [address], [place], [address], 07/14/2025 14:52:32 07/14/20 25 07/14/2025 URINA LYSIS WITH MICRO S.g 1.010 1.005- 1.025 Not Available [facility] [address], [place], [address], 07/14/2025 14:52:32 07/14/20 25 07/14/2025 URINA LYSIS WITH MICRO pH 5.0 5.0-7. 0 Not Available [facility] [address], [place], [address], 07/14/2025 14:52:32 07/14/2007/14/2025 URINA LYSIS WITH MICRO pro NEGATI VE Not Available [facility] [address], [place], [address], 07/14/2025 14:52:32 07/14/2007/14/2025 URINA LYSIS WITH MICRO uro 0.2 E.U./D L Not Available [facility] [address], [place], [address], 07/14/2025 14:52:32 07/14/20 25 07/14/2025 URINA LYSIS WITH MICRO nit NEGATI VE Not Available [facility] [address], [place], [address], 07/14/2025 14:52:32 07/14/20 25 07/14/2025 URINA LYSIS WITH MICRO blo NEGATI VE Not Available [facility] [address] [facility], [place], [address], 07/14/2025 14:52:32 07/14/20 25 07/14/2025 URINA LYSIS WITH MICRO jose elias NEGATI VE Not Available [facility] [address] [facility], [place], [address], 07/14/2025 14:52:32 07/14/20 25 07/14/2025 URINA LYSIS WITH MICRO WBC 0-1 abnormal Not Available [facility] [address] [facility], [place], [address], 07/14/2025 14:52:32 07/14/20 25 07/14/2025 URINA LYSIS WITH MICRO RBC NEGATI VE Not Available [facility] [address] [facility], [place], [address], 07/14/2025 14:52:32 07/14/20 25 07/14/2025 URINA LYSIS WITH MICRO epi cells 1-2 abnormal Not Available [facility] [address] [facility], [place], [address], 07/14/2025 14:52:32 07/14/20 25 07/14/2025 URINA LYSIS WITH MICRO bacteria 1-2 HYALIN E CAST abnormal Not Available [facility] [address] [place] [address], [place], [address], 07/14/2025 14:52:32 07/14/20 25 07/14/2025 URINA LYSIS WITH MICRO other NEG Not Available [facility] [address] [facility], [place], [address], 07/14/2025 14:52:32 07/14/20 25 07/16/2025 CULTU RE, URINE , ROUTI NE culture, urine, routine SEE NOTE CULTU RE, URINE , ROUTI NE Micro Numbe r: [id number] Test Statu s: Final Speci men Sourc e: Urine Speci men Quali ty: Adequ ate Resul t: No Growt h Not Available [facility] [address] [place], [address], 07/16/2025 02:51:13 07/17/2007/17/2025 PT/IN R Protime 34.4 Not Available [facility] ([facility]) [address] [place], [address], 07/16/2025 12:07:15 07/17/2007/17/2025 PT/IN R INR 2.9 Not Available [facility] ([facility]) [address] [place] [address], [address], 07/16/2025 12:07:15 07/23/2007/23/2025 PT/IN R Protime 47.0 Not Available [facility] ([facility]) [address] [place] [address], [address], 07/23/2025 11:36:06 07/23/20 25 07/23/2025 PT/IN R INR 3.9 Not Available [facility] ([facility]) [address] [place], [address], 07/23/2025 11:36:06 07/30/20 25 07/30/2025 PT/IN R Protime 30.2 Not Available [facility] ([facility]) [address] [place] [address], [address], 07/30/2025 11:33:15 07/30/20 25 07/30/2025 PT/IN R INR 2.5 Not Available [facility] ([facility]) [address] [place] [address], [address], 07/30/2025 11:33:15 08/05/2008/04/2025 XR, cervi luisito spine , 2 or 3 view No observ ation record ed. [facility] [address] [place], [address], 08/07/2025 13:25:55 08/05/2008/04/2025 XR, shoul vito, 2 or more view No observ ation record ed. [facility] [address] [place], [address], 08/07/2025 13:25:55 09/09/2009/08/2025 US, echoc ardio gram, trans thora cic, compl ete, w/ color flow No observ ation record ed. [facility] [address] [place], [address], 09/11/2025 09:19:21 09/15/2009/15/2025 MAMMO , scree ilya, digit al, bilat eral No observ ation record ed. [email or web address] [place] [address] [address] [place], [address], 09/16/2025 16:09:54 Result Notes None recorded. Problems Name Problem SNOMED Code Status Onset Date Resolution Date Notes Provider Name and Address Organization Details Recorded Time Depressi ve disorder 64955519 Completed 202010/14/2021 Depressi on - Status is Inactive ; 10/14/20 11:08AM by Maryellen Marmolejo PA-C, Annotati on/Adden dum; Promoted ; acuity set as *; FELISHA hamilton [facility] 07:56:57 Herpes zoster 5959936 Completed 202201/02/2025 SHINGLES FELISHA hamilton [facility] 03/07/202 5 07:56:03 Dysthymi a 46013579 Active 2022 DEPRESSI ON WITH ANXIETY FELISHA hamilton, [facility] 5 07:55:28 Benign essentia l hyperten jovanni 8607947 Active 2022 FELISHA DESIR null, [facility] 5 07:55:28 Gastroes ophageal reflux disease 764920166 Active 2022 FELISHA DESIR null, [facility] 5 07:55:28 Fracture of upper end of humerus 103934215 Completed 202201/02/2025 CLOSED FRACTURE OF PROXIMAL END OF RIGHT HUMERUS, SEQUELA FELISHA hamilton, [facility] 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 5 07:56:22 Atrial fibrilla tion 14509648 Active 2022 FELISHA hamilton, [facility] 3 14:45:05 Coronary atherosc lerosis 296420732 Active 2022 bare metal stents to circ and LAD 2011 FELISHA hamilton, [facility] 3 14:46:30 Iron deficien cy anemia 71859622 Active 2022 FELISHA hamilton, [facility] 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 3 14:45:59 Anxiety 37262531 Active 2022 FELISHA hamilton, [facility] 3 14:46:54 Viral hepatiti s C 63243524 Active 2022 FELISHA DESIR null, [facility] 5 07:55:28 Moderate recurren t major depressi on 41168222 Active 2023 FELISHA DESIR null, [facility] 5 07:55:28 Need for personal care assistan ce [id number] 044706 Active 2023 FELISHA DESIR null, [facility] 5 07:55:28 Frail elderly 472972975 Active 2023 FELISHA DESIR null, [facility] 5 07:55:28 Seasonal allergic rhinitis 259107400 Active 2023 FELISHA DESIR null, [facility] 5 07:55:28 Chronic pain 87823263 Active 2023 FELISHA DESIR null, [facility] 5 07:55:28 Dementia 85001001 Active 2023 FELISHA DESIR null, [facility] 5 07:55:28 Constipa tion 59483661 Active 2023 FELISHA DESIR null, [facility] 5 07:55:44 Hyperlip idemia 35584345 Active 2024 FELISHA DESIR null, [facility] 5 07:59:38 Occult blood detected in feces 68021682 Active 2024 FELISHA DESIR null, [facility] 5 09:13:35 Mean corpuscu lar volume above referenc e range 825718037 Active 2024 FELISHA hamilton, [facility] 5 09:14:07 Hypercal cemia 52557506 Active 2024 FELISHA hamilton, [facility] 5 10:07:49 Vitamin D deficien cy 56196881 Active 2024 Lyn Marmolejo MD [address] [place] [address], [address], [facility] 5 12:54:55 Hyperpar athyroid ism 26197801 Active 2024 Lyn Marmolejo MD [address] [place] [address], [address], [facility] 5 12:54:56 Dysuria 15930548 Active 2024 Dotty Celis null, [facility] 5 14:08:08 Problem Notes None recorded. Procedures Surgical History Date Name Laterality Status Provider Name and Address Organization Details Recorded Time 2024 Most Recent Mammogram completed FELISHA DESIR [facility] 5 16:09:39 2024 esophagogastroduodenoscopy completed YANELIS DESIR [facility] 5 12:23:16 2024 colonoscopy completed FELISHA DESIR [facility] 5 10:20:11 2023 esophagogastroduodenoscopy completed KIARA DUCKWORTH [facility] 4 12:40:14 2023 colonoscopy completed Lyn Marmolejo MD [address] [place] [address], [address], [facility] 5 10:19:30 cholecystectomy completed FELISHA DESIR [facility] 3 14:48:40 replacement of mitral valve complete d FELISHA DESIR [facility] 3 14:49:22 section completed FELISHA DESIR [facility] 3 15:14:43 Imaging Results None recorded. Procedure Notes None recorded. Medical Equipment None Reported. Allergies Allergen ID Allergen Name Allergen Category Reaction Reaction Severity Criticality Documentation Date Start Date Code Code System Note Provider Name and Address Organization Details Recorded Time 1376 morphine medicatio n Not available Not available Not available 02/07/2023 7052 RxNorm Dotty Celis [facility] 3 10:45:47 1377 diltiazem Not available Not available Not available Not available 02/07/2023 3443 RxNorm Dottylizzie Celis [facility] 3 10:45:54 4552 Bactrim medicatio n other severe high 04/17/2023 03058 9 RxNorm do not give d/t couma anh Lola Vidal [facility] 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, 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 ; Debra mayers; Trey bernal ce: *; Reaso n: Drug aller gy; ; FELISHA DESIR [facility] 12:26:48 Medications Name Sig Start Date Stop [...] Available Not Available No t Available Medrol (Chmea) 4 mg tablets in a dose pack [...] 11/13/19 3:03PM by Dotty Larry RN (Authori cnadelario through Lyn Marmolejo MD), Refill Request; Refill [...] [facility] Levothyro xine Sodium daily 06/08 completed 22197; Recorded 01/09/20 6:06PM by Shirley Quevedo (Authori [...] Updated DateTime 5 154.94 cm 29.7 kg/m2 15666 g 97.6 [degF] 79 /min 94 % 126/84 mm[Hg] Dotty Celis [facility] 10:23:59 Social History Question Answer Notes LastModified by [email or web address] Details LastModified Time Tobacco Smoking Status [facility] 04/17/2023 14:48:01 What Was The Date Of Your Most Recent Tobacco Screening? 05/27/2025 [email or web address] Information not available 05/27/2025 Sex: Unknown Functional Status Question Answer Note LastModified by [employer] Details LastModified Time Do you use any illicit or recreational drugs? No [email or web address] Information not available 04/17/2023 Do you or have you ever used any other forms of tobacco or nicotine? No [email or web address] Information not available 06/29/2023 What is your level of alcohol consumption? None [email or web address] Information not available 04/17/2023 Mental Status None recorded. Family History Relationship Description Onset Age of this Age Resolved Age Notes LastModified by Organization Details LastModified Time Unspecified Relation Coronary atherosclero sis [email or web address] Not available 06/29 15:13:48 Medical History No medical history recorded. Gynecological History Statement/Question Response Most Recent Mammogram 09/15/2025 Obstetrics History GPAL:G 0 P 0 0 0 0 Immunizations Vaccine Type Date Status Note Provider Nam e and Address Organization Details Recorded Time Influenza, MDCK, quadrivalent, PF 2 completed [facility] 10/10/2024 08:38:58 COVID-19, mRNA, LNP-S, PF, 100 mcg/0.5mL dose or 50 mcg/0.25mL dose 1 completed [facility] 10/10/2024 08:38:58 COVID-19, mRNA, LNP-S, PF, 100 mcg/0.5mL dose or 50 mcg/0.25mL dose 1 completed [facility] 10/10/2024 08:38:58 COVID-19, mRNA, LNP-S, PF, 100 mcg/0.5mL dose or 50 mcg/0.25mL dose 2 completed [facility] 10/10/2024 08:38:58 Pneumococcal conjugate PCV20, polysaccharide [id number] conjugate, adjuvant, PF 3 completed [facility] 10/10/2024 08:38:58 COVID-19, mRNA, LNP-S, bivalent, PF, 50 mcg/0.5 mL or 25mcg/0.25 mL dose 3 completed FELISHA DESIR [facility] 10/10/2024 08:38:58 pneumococcal polysaccharide PPV23 3 completed [facility] 04/17/2023 12:02:00 Tdap 1 completed FELISHA DESIR null, [facility] 10/10/2024 08:38:58 Influenza, split virus, trivalent, PF 3 completed FELISHA DESIR null, [facility] 04/17/2023 12:02:00 influenza, split (incl. purified surface antigen) 0 completed FELISHA DESIR null, [facility] 04/17/2023 12:02:00 Hep A, adult 1 completed FELISHA DESIR null, [facility] 10/10/2024 08:38:58 Hep A, adult 9 completed FELISHA hamilton, [facility] 10/10/2024 08:38:58 Influenza, split virus, quadrivalent, PF 1 completed FELISHA DESIR null, [facility] 10/10/2024 08:38:58 Influenza, split virus, quadrivalent, PF 9 completed FELISHA DESIR null, [facility] 10/10/2024 08:38:58 Influenza, MDCK, trivalent, PF 4 completed FELISHA DESIR null, [facility] 10/10/2024 08:38:58 Influenza, MDCK, quadrivalent, preservative 3 completed FELISHA DESIR null, [facility] 10/10/2024 08:38:58 pneumococcal polysaccharide PPV23 8 completed Lola hamilton, [facility] 07/02/2024 08:41:52 Influenza, split virus, quadrivalent, PF 8 completed Lola hamilton, [facility] 07/02/2024 08:41:52 zoster recombinant 3 completed Lola Vidal null, [facility] 07/02/2024 14:52:40 COVID-19, mRNA, LNP-S, PF, 50 mcg/0.5 mL 4 completed FELISHA DESIR null, [facility] 10/10/2024 08:38:58 Influenza, MDCK, trivalent, preservative 4 completed FELISHA hamilton, [facility] 10/10/2024 08:38:58 Past Encounters Encounter ID Performer Location Encounter Start Date Encounter Closed Date Diagnosis/Indication Diagnosis SNOMED-CT Code Diagnosis ICD10 Code Diagnosis IMO Codes Diagnosis Note [id number] Lyn Marmolejo MD [facility] ([facility]) [address] [place], [place] [address] 07/06/2025 11:22:40 07/07/2025 09:33:46 History of mechanical prosthetic mitral valve replacement 829446576 Z95.2 [id number] Lyn Marmolejo MD [facility]) [address] [place], [place] [address] 07/09/2025 13:42:58 07/10/2025 14:24:59 Atrial fibrillation 23034374 I48.91 warfarin therapyd/c naproxen d/t hx of bleeding [id number] Lyn Marmolejo MD [facility]) [address] [place] [address] 07/14/2025 13:52:08 07/15/2025 10:22:44 Dysuria 86335085 R30.0 [id number] will call with ua results [id number] Lyn Marmolejo MD [facility]) [address] [place], [place] [address] 07/16/2025 12:05:46 07/17/2025 11:01:38 Atrial fibrillation 89719878 I48.91 warfarin therapyd/c naproxen d/t hx of bleeding [id number] Lyn Marmolejo MD [facility] ([facility]) [address] [place] [address] 07/23/2025 11:35:38 07/24/2025 12:08:17 Atrial fibrillation 70529301 I48.91 warfarin therapyd/c naproxen d/t hx of bleeding [id number] Lyn Marmolejo MD [facility] ([facility]) [address] [place] [address] 07/30/2025 11:32:37 07/31/2025 09:44:15 History of mechanical prosthetic mitral valve replacement 837727872 Z95.2 [id number] Lyn Marmolejo MD [facility] ([facility]) [address] [place] [phone] 08/04/2025 10:06:02 08/04/2025 15:14:44 Right cervical root neuropathy 8681070087 6937671 M54.12 96985199 Pain of ri t shoulder region 3473911740 M25.511 [id number] Health Concerns Section Related Observation LastModified by Organization Detai ls LastModified Time None Recorded Concern Status LastModified by Organization Details LastModified Time None Recorded Payers Encounter Date Sequence Insurance Name Policy Number Policy Hernandez Covered Member ID Hernandez Member ID Guarantor Name 08/04/2025 1 [place]ANT[place] - [place]PO) [id number] Odilia Ulloa [id number] Odilia Ulloa 08/04/2025 2 [place] Odilia Ulloa [id number] Odilia Ulloa Notes Date Note Type Note [...] radiates down the arm Lyn Marmolejo MD [address] [place] [address], [phone] 08/04/2025 10:40:35 OBGyn Episode No OBEpisode recorded.
--- OUTSIDE RECORDS SUMMARY | 2025-09-25 08:27 | XMS_ITS | Encounter Summary ---
Author Organization [facility] Address [address] [place] [address] Care Team Providers Care Cardiology Teacher Name Role Phone Rico Muñiz MD, Sharan Jaime Primary Care Provider Encounter Details Date Type Department Care Team (Latest Contact Info) Description 04/07/2002 Outpatient Historical [facility] Sharan Gómez Jr., MD [address] [place] [address] ENDOCARDITIS NOS (Primary Dx); DIABETES UNCOMPL ADULT-TYPE II (CMS/HCC); HYPERTENSION NOS; AFTERCARE INTERMEDIATE ANTICOAG USE Social History Tobacco Use Types Packs/Day Years Used Date Smoking Tobacco: Never Assessed Comments Unknown Sex and Gender Information Value Date Recorded Sex Assigned at Not on file Legal Sex Female 5:42 AM KETTLE GIRL Gender Identity Not on file Sexual Orientation Not on file documented as of this encounter Plan of Treatment Not on file documented as of this encounter Visit Diagnoses Diagnosis Endocarditis, valve unspecified, unspecified cause- Primary Type II or unspecified type diabetes mellitus without mention of complication, not stated as uncontrolled Unspecified essential hypertension 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
--- OUTSIDE RECORDS SUMMARY | 2025-09-25 08:27 | XMS_ITS | Encounter Summary ---
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
--- OUTSIDE RECORDS SUMMARY | 2025-09-25 08:27 | XMS_ITS | Encounter Summary ---
Author Organization [facility] Address [address] [place] [address] Care Team Providers Care Spiritual Care Coordinator Name Role Phone Rico Muñiz MD, Sharan Jaime Primary Care Provider Encounter Details Date Type Department Care Team (Latest Contact Info) Description 11/14/2001 Outpatient Historical [facility] Sharan Gómez Jr., MD [address] [place] [address] OSTEOARTHROS NOS-UNSPEC (Primary Dx); HEART VALVE REPLAC NEC Social History Tobacco Use Types Packs/Day Years Used Date Smoking Tobacco: Never Assessed Comments Unknown Sex and Gender Information Value Date Recorded Sex Assigned at Not on file 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
--- OUTSIDE RECORDS SUMMARY | 2025-09-25 08:27 | XMS_ITS | Encounter Summary ---
Author Organization [facility] Address [address] 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
--- OUTSIDE RECORDS SUMMARY | 2025-09-25 08:27 | XMS_ITS | Encounter Summary ---
Author Organization [facility] Address [address] [place] [address] Care Team Providers Care Horse Trainer Name Role Phone Rico Muñiz MD, Sharan Jaime Primary Care Provider Encounter Details Date Type Department Care Team (Latest Contact Info) Description 09/05/2001 Outpatient Historical [facility] Sharan Gómez Jr., MD [address] [place] [address] OSTEOARTHROS NOS-UNSPEC (Primary Dx); OSTEOPOROSIS NOS Social History Tobacco Use Types Packs/Day Years Used Date Smoking Tobacco: Never Assessed Comments Unknown Sex and Gender Information Value Date Recorded Sex Assigned at Not on file 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
--- OUTSIDE RECORDS SUMMARY | 2025-09-25 08:27 | XMS_ITS | Encounter Summary ---
Author Organization [facility] Address [address] [place] [address] Care Team Providers Care Wholesale Manager Name Role Phone Rico Muñiz MD, Sharan Jaime Primary Care Provider Encounter Details Date Type Department Care Team (Latest Contact Info) Description 07/06/2006 Outpatient Historical [facility] [place] [address] [place] [id number] Jennifer Cash MD NO ADDRESS ON FILE Unspecified Essential Hypertension (Primary Dx); Other and Unspecified Hyperlipidemia; Hypercalcemia; Routine Medical Exam Social History Tobacco Use Types Packs/Day Years Used Date Smoking Tobacco: Never Assessed Comments Unknown Sex and Gender Information Value Date Recorded Sex Assigned at Not on file Legal Sex 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
--- OUTSIDE RECORDS SUMMARY | 2025-09-25 08:27 | XMS_ITS | Encounter Summary ---
Author Organization [facility] Address [address] [place] [address] Care Team Providers Care Rehab Therapist Name Role Phone Rico Muñiz MD, Sharan Jaime Primary Care Provider Encounter Details Date Type Department Care Team (Latest Contact Info) Description 12/20/2001 Outpatient Historical [facility] Sharan Gómez Jr., MD [address] [place] [address] WHEEZING (Primary Dx); HEART VALVE REPLAC NEC; AFTERCARE [facility]P ANTICOAG USE Social History Tobacco Use Types Packs/Day Years Used Date Smoking Tobacco: Never Assessed Comments Unknown Sex and Gender Information Value Date Recorded Sex Assigned at Not on file 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
--- OUTSIDE RECORDS SUMMARY | 2025-09-25 08:27 | XMS_ITS | Continuity of Care Document ---
Author Organization DAI Valentine [facility] Luis M, Keenan, [facility] ([facility]) Address [address] [place] [address] Care Team Providers Care Spray Gunner Name Role Phone LYN MARMOLEJO Primary Care Provider Assessment No assessment recorded. Plan of Treatment Reminders Order Date Submit Date Provider Last Modified By Organization Details Last Modified Time Details Appointments [facility] VISIT 2024 08:50A M Lyn Marmolejo MD Not available Not available Not available [facility] [address] [place], [address], 07/23/2025 11:41:21 Referral None recorded . Procedures None recorded . Surgeries None recorded . Imaging None recorded . Medication Orders None recorded . Patient TargetsNo targets recorded. Patient InstructionsNo instructions recorded. Reason for Referral None Reported. Results Created Date Observation Date Name Description Value Unit Range Abnormal Flag Note LastModifiedBy Organization Detail LastModifiedTime 06/24/2006/24/2025 PT/IN R Protime 40.9 Not Available [facility] ([facility]) [address] [place], [address], 06/24/2025 13:13:54 06/24/2006/24/2025 PT/IN R INR 3.4 Not Available [facility] ([facility]) [address] [place], [address], 06/24/2025 13:13:54 07/02/20 25 07/02/2025 PT/IN R Protime 42.3 Not Available [facility] ([facility]) [address] [place], [address], 07/01/2025 10:25:07 07/02/20 25 07/02/2025 PT/IN R INR 3.5 Not Available [facility] ([facility]) [address] [place], [address], 07/01/2025 10:25:07 07/06/20 25 07/06/2025 PT/IN R Protime 39.5 Not Available [facility]) [address] [place], [address], 07/06/2025 11:23:26 07/06/20 25 07/06/2025 PT/IN R INR 3.3 Not Available [facility] ([facility]) [address] [place], [address], 07/06/2025 11:23:26 07/09/20 25 07/09/2025 PT/IN R Protime 34.6 Not Available [facility] ([facility]) [address] [place], [address], 07/09/2025 13:44:17 07/09/20 25 07/09/2025 PT/IN R INR 2.9 Not Available [facility] ([facility]) [address] [place], [address], 07/09/2025 13:44:17 07/14/20 25 07/14/2025 URINA LYSIS WITH MICRO color YELLOW Not Available [facility] [address], [address], 07/14/2025 14:52:32 07/14/20 25 07/14/2025 URINA LYSIS WITH MICRO clarity CLEAR Not Available [facility] [address], [place], [address], 07/14/2025 14:52:32 07/14/20 25 07/14/2025 URINA LYSIS WITH MICRO glu NEGATI VE Not Available [facility] [address], [place], [address], 07/14/2025 14:52:32 07/14/20 25 07/14/2025 URINA LYSIS WITH MICRO bili NEGATI VE Not Available [facility] [address], [place], [address], 07/14/2025 14:52:32 07/14/20 25 07/14/2025 URINA LYSIS WITH MICRO ket NEGATI VE Not Available [facility] [address], [place], [address], 07/14/2025 14:52:32 07/14/20 25 07/14/2025 URINA LYSIS WITH MICRO S.g 1.010 1.005- 1.025 Not Available [facility] [address], [place], [address], 07/14/2025 14:52:32 07/14/2007/14/2025 URINA LYSIS WITH MICRO pH 5.0 5.0-7. 0 Not Available [facility] [address], [place], [address], 07/14/2025 14:52:32 07/14/20 25 07/14/2025 URINA LYSIS WITH MICRO pro NEGATI VE Not Available [facility] [address], [place], [address], 07/14/2025 14:52:32 07/14/2007/14/2025 URINA LYSIS WITH MICRO uro 0.2 E.U./D L Not Available [facility] [address], [place], [address], 07/14/2025 14:52:32 07/14/20 25 07/14/2025 URINA LYSIS WITH MICRO nit NEGATI VE Not Available [facility] [address] [facility] [address], [place], [address], 07/14/2025 14:52:32 07/14/20 25 07/14/2025 URINA LYSIS WITH MICRO blo NEGATI VE Not Available [facility] [address] [facility] [address], [place], [address], 07/14/2025 14:52:32 07/14/20 25 07/14/2025 URINA LYSIS WITH MICRO jose elias NEGATI VE Not Available [facility] [address] [facility] [address], [place], [address], 07/14/2025 14:52:32 07/14/2007/14/2025 URINA LYSIS WITH MICRO WBC 0-1 abnormal Not Available [facility] [address] [facility] [address], [place], [address], 07/14/2025 14:52:32 07/14/20 25 07/14/2025 URINA LYSIS WITH MICRO RBC NEGATI VE Not Available [facility] [address] [facility] [address], [place], [address], 07/14/2025 14:52:32 07/14/2007/14/2025 URINA LYSIS WITH MICRO epi cells 1-2 abnormal Not Available [facility] [address] [facility] [address], [place], [address], 07/14/2025 14:52:32 07/14/20 25 07/14/2025 URINA LYSIS WITH MICRO bacteria 1-2 HYALIN E CAST abnormal Not Available [facility] [address] [facility] [address], [place], [address], 07/14/2025 14:52:32 07/14/2007/14/2025 URINA LYSIS WITH MICRO other NEG Not Available [facility] [address] [facility] [address], [place], [address], 07/14/2025 14:52:32 07/14/2007/16/2025 CULTU RE, URINE , ROUTI NE culture, urine, routine SEE NOTE CULTU RE, URINE , ROUTI NE Micro Numbe r: [id number] Test Statu s: Final Speci men Sourc e: Urine Speci men Quali ty: Adequ ate Resul t: No Growt h Not Available [place] [address] [place], [address], 07/16/2025 02:51:13 07/17/2007/17/2025 PT/IN R Protime 34.4 Not Available [facility] ([facility]) [address] [place], [address], 07/16/2025 12:07:15 07/17/20 25 07/17/2025 PT/IN R INR 2.9 Not Available [facility] ([facility]) [address] [place], [address], 07/16/2025 12:07:15 07/23/2007/23/2025 PT/IN R Protime 47.0 Not Available [facility] ([facility]) [address] [place], [address], 07/23/2025 11:36:06 07/23/20 25 07/23/2025 PT/IN R INR 3.9 Not Available [facility] ([facility]) [address] [place], [address], 07/23/2025 11:36:06 08/05/2008/04/2025 XR, cervi luisito spine , 2 or 3 view No observ ation record ed. [facility] [address] [place], [address], 08/07/2025 13:25:55 08/05/2008/04/2025 XR, shoul vito, 2 or more view No observ ation record ed. [facility] [address] [place], [address], 08/07/2025 13:25:55 09/09/2009/08/2025 US, echoc ardio gram, trans thora cic, compl ete, w/ color flow No observ ation record ed. [facility] [address] [place], [address], 09/11/2025 09:19:21 09/15/2009/15/2025 MAMMO , scree ilya, digit al, bilat eral No observ ation record ed. [email or web address] [place] [address] [address] [place], [address], 09/16/2025 16:09:54 Result Notes None recorded. Problems Name Problem SNOMED Code Status Onset Date Resolution Date Notes Provider Name and Address Organization Details Recorded Time Depressi ve disorder 08018328 Completed 202010/14/2021 Depressi on - Status is Inactive ; 10/14/20 11:08AM by Maryellen Marmolejo PA-C, Annotati on/Adden dum; Promoted ; acuity set as *; FELISHA hamilton, [facility] 07:56:57 Herpes zoster 5567376 Completed 202201/02/2025 SHINGLES FELISHA hamilton [facility] 03/07/202 5 07:56:03 Dysthymi a 61946346 Active 2022 DEPRESSI ON WITH ANXIETY FELISHA hamilton, [facility] 5 07:55:28 Benign essentia l hyperten jovanni 0660889 Active 2022 FELISHA hamilton, [facility] 5 07:55:28 Gastroes ophageal reflux disease 623017661 Active 2022 FELISHA DESIR null, [facility] 5 07:55:28 Fracture of upper end of humerus 247980114 Completed 202201/02/2025 CLOSED FRACTURE OF PROXIMAL END OF RIGHT HUMERUS, SEQUELA FELISHA hamilton, [facility] 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 5 07:56:22 Atrial fibrilla tion 36878883 Active 2022 FELISHA hamilton, [facility] 3 14:45:05 Coronary atherosc lerosis 535808538 Active 2022 bare metal stents to circ and LAD 2011 FELISHA hamilton, [facility] 3 14:46:30 Iron deficien cy anemia 99119873 Active 2022 FELISHA hamilton, [facility] 5 07:55:28 Hypothyr oidism 93046950 Active 2022 FELISHA hamilton, [facility] 3 14:45:59 Anxiety 76740072 Active 2022 FELISHA hamilton, [facility] 3 14:46:54 Viral hepatiti s C 85789311 Active 2022 FELISHA hamilton, [facility] 5 07:55:28 Moderate recurren t major depressi on 02397729 Active 2023 FELISHA DESIR null, [facility] 5 07:55:28 Need for personal care assistan ce 66598245775 276520 Active 2023 FELISHA hamilton, [facility] 5 07:55:28 Frail elderly 725485492 Active 2023 FELISHA DESIR null, [facility] 5 07:55:28 Seasonal allergic rhinitis 385606762 Active 2023 FELISHA hamilton, [facility] 5 07:55:28 Chronic pain 69753854 Active 2023 FELISHA hamilton, [facility] 5 07:55:28 Dementia 36966165 Active 2023 FELISHA hamilton, [facility] 5 07:55:28 Constipa tion 08880634 Active 2023 FELISHA DESIR null, [facility] 5 07:55:44 Hyperlip idemia 55473265 Active 2024 FELISHA hamilton, [facility] 5 07:59:38 Occult blood detected in feces 37105628 Active 2024 FELISHA hamilton, [facility] 5 09:13:35 Mean corpuscu lar volume above referenc e range 117658546 Active 2024 FELISHA haimlton [facility] 5 09:14:07 Hypercal cemia 42521390 Active 2024 FELISHA DESIR alfonso, [facility] 5 10:07:49 Vitamin D deficien cy 95501501 Active 2024 Lyn Marmolejo MD [address] [place] [address], [address] [place] [address] 5, [facility] 5 12:54:55 Hyperpar athyroid ism 60932337 Active 2024 Lyn Marmolejo MD [address] [place] [address], [address], [facility] 5 12:54:56 Dysuria 81230718 Active 2024 Dotty hamilton, [facility] 5 14:08:08 Problem Notes None recorded. Procedures Surgical History Date Name Laterality Status Provider Name and Address Organization Details Recorded Time 2024 Most Recent Mammogram completed FELISHA DESIR [facility] 5 16:09:39 2024 esophagogastroduodenoscopy completed YANELIS DESIR [facility] 5 12:23:16 2024 colonoscopy completed FELISHA DESIR [facility] 5 10:20:11 2023 esophagogastroduodenoscopy completed KIARA DUCKWORTH [facility] 4 12:40:14 2023 colonoscopy completed Lyn Marmolejo MD [address] [place] [address], [address], [facility] 03/07/202 5 10:19:30 cholecystectomy completed FELISHA [facility] 3 14:48:40 replacement of mitral valve complete d FELISHA [facility] 3 14:49:22 section completed FELISHA [facility] 3 15:14:43 Imaging Results None recorded. Procedure Notes None recorded. Medical Equipment None Reported. Allergies Allergen ID Allergen Name Allergen Category Reaction Reaction Severity Criticality Documentation Date Start Date Code Code System Note Provider Name and Address Organization Details Recorded Time 1376 morphine medicatio n Not available Not available Not available 02/07/2023 7052 RxNorm Dotty Celis [facility] 3 10:45:47 1377 diltiazem Not available Not available Not available Not available 02/07/2023 3443 RxNorm Dotty Celis [facility] 3 10:45:54 4552 Bactrim medicatio n other severe high 04/17/2023 91871 9 RxNorm do not give d/t couma din Lola Vidal [facility] 4 13:34:33 56379 diltiazem hydrochlo ride medicatio n Not available Not available Not available 05/26/202336222 1 RxNorm Comme nt: Recor ded 12/29 7:56A M by Yanelis Kitchen on, TESTER COMPRESSED GASES, 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 ; Promo talib; Trey bernal ce: *; Reaso n: Drug aller gy; ; FELISHA DESIR [facility] 3 12:26:44 12795 morphine sulfate medicatio n Not available Not available Not available 05/26/2023 85181 RxNorm Comme nt: Recor ded 12/29 7:56A M by Yanelis Kitchen on, TESTER COMPRESSED GASES, 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 ; Debra mayers; Trey bernal ce: *; Reaso n: Drug aller gy; ; FELISHA DESIR [facility] 12:26:48 Medications Name Sig Start Date Stop [...] THSC Levothyro xine Sodium daily 06/08 completed 37683; Recorded 01/09/20 6:06PM by Shirley Quevedo (Authori [...] Social History Question Answer Notes LastModified by CPM [employer] Details LastModified Time Tobacco Smoking Status Former Smoker FELISHA hamilton, [facility] 04/17/2023 14:48:01 What Was The Date Of Your Most Recent Tobacco Screening? 05/27/2025 [email or web address] Information not available 05/27/2025 Sex: Unknown Functional Status Question Answer Note LastModified by CPM Braxisizat ion Details LastModified Time Do you use any illicit or recreational drugs? No [email or web address] Information not available 04/17/2023 Do you or have you ever used any other forms of tobacco or nicotine? No [email or web address] Information not available 06/29/2023 What is your level of alcohol consumption? None Information not available 04/17/2023 Mental Status None recorded. Family History Relationship Description Onset Age of this Age Resolved Age Notes LastModified by Organization Details LastModified Time Unspecified Relation Coronary atherosclero sis [email or web address] Not available 06/29 15:13:48 Medical History No medical history recorded. Gynecological History Statement/Question Response Most Recent Mammogram 09/15/2025 Obstetrics History GPAL:G 0 P 0 0 0 0 Immunizations Vaccine Type Date Status Note Provider Nam e and Address Organization Details Recorded Time Influenza, MDCK, quadrivalent, PF 2 completed FELISHA hamilton [facility] 10/10/2024 08:38:58 COVID-19, mRNA, LNP-S, PF, 100 mcg/0.5mL dose or 50 mcg/0.25mL dose 1 completed FELISHA DESIR null, [facility] 10/10/2024 08:38:58 COVID-19, mRNA, LNP-S, PF, 100 mcg/0.5mL dose or 50 mcg/0.25mL dose 1 completed FELISHA DESIR null, [facility] 10/10/2024 08:38:58 COVID-19, mRNA, LNP-S, PF, 100 mcg/0.5mL dose or 50 mcg/0.25mL dose 2 completed FELISHA hamilton, [facility] 10/10/2024 08:38:58 Pneumococcal conjugate PCV20, polysaccharide ZPU690 conjugate, adjuvant, PF 3 completed FELISHA hamilton, [facility] 10/10/2024 08:38:58 COVID-19, mRNA, LNP-S, bivalent, PF, 50 mcg/0.5 mL or 25mcg/0.25 mL dose 3 completed FELISHA hamilton, [facility] 10/10/2024 08:38:58 pneumococcal polysaccharide PPV23 3 completed FELISHA DESIR null, [facility] 04/17/2023 12:02:00 Tdap 1 completed FELISHA hamilton, [facility] 10/10/2024 08:38:58 Influenza, split virus, trivalent, PF 3 completed FELISHA hamilton, [facility] 04/17/2023 12:02:00 influenza, split (incl. purified surface antigen) 0 completed FELISHA hamilton, [facility] 04/17/2023 12:02:00 Hep A, adult 1 completed FELISHA DESIR null, [facility] 10/10/2024 08:38:58 Hep A, adult 9 completed FELISHA DESIR null, [facility] 10/10/2024 08:38:58 Influenza, split virus, quadrivalent, PF 1 completed FELISHA DESIR null, [facility] 10/10/2024 08:38:58 Influenza, split virus, quadrivalent, PF 9 [facility] 10/10/2024 08:38:58 Influenza, MDCK, trivalent, PF 4 completed FELISHA DESIR null, [facility] 10/10/2024 08:38:58 Influenza, MDCK, quadrivalent, preservative 3 completed FELISHA hamilton, [facility] 10/10/2024 08:38:58 pneumococcal polysaccharide PPV23 8 completed Lola hamilton, [facility] 07/02/2024 08:41:52 Influenza, split virus, quadrivalent, PF 8 completed Lola Vidal null, [facility] 07/02/2024 08:41:52 zoster recombinant 3 completed Lola hamilton, [facility] 07/02/2024 14:52:40 COVID-19, mRNA, LNP-S, PF, 50 mcg/0.5 mL 4 completed FELISHA hamilton, [facility] 10/10/2024 08:38:58 Influenza, MDCK, trivalent, preservative 4 completed FELISHA DESIR [facility] 10/10/2024 08:38:58 Past Encounters Encounter ID Performer Location Encounter Start Date Encounter Closed Date Diagnosis/Indication Diagnosis SNOMED-CT Code Diagnosis ICD10 Code Diagnosis IMO Codes Diagnosis Note [id number] Lyn Marmolejo MD [facility] ([facility]) [address] [place] [phone] 06/24/2025 12:18:01 06/30/2025 13:41:59 Hyperparathyroidism 48862804 E21.3 74044 corrected and ionized calcium are normalgfr 52 and stable Vitamin D deficiency 347 83681 E55.9 [id number] Lyn Marmolejo MD [facility] ([facility]) [address] [place] [phone] 07/01/2025 10:24:23 07/02/2025 11:29:38 Atrial fibrillation 08066882 I48.91 warfarin therapy [id number] Lyn Marmolejo MD [facility] ([facility]) [address] [place] [phone] 07/03/2025 08:14:55 07/13/2025 10:06:37 Benign essential hypertension 0772702 I10 Coronary atherosclerosis 543816218 I25.119 Atrial fibrillation 4943 6004 I48.91 warfarin therapyd/c naproxen d/t hx of bleeding Hyperlipidemia 35282868 E78.00 Hypothyroidism 27944091 E03.9 Hyperparathyroidism 6699 9008 E21.3 [id number] Lyn Marmolejo MD [facility] ([facility]) [address] [place] [id number] 07/06/2025 11:22:40 07/07/2025 09:33:46 History of mechanical prosthetic mitral valve replacement 889990569 Z95.2 [id number] Lyn Marmolejo MD [facility] ([facility]) [address] [place] [phone] 07/09/2025 13:42:58 07/10/2025 14:24:59 Atrial fibrillation 94949130 I48.91 warfarin therapyd/c naproxen d/t hx of bleeding [id number] Lyn Marmolejo MD [facility] ([facility]) [address] [place] [phone] 5 07/14/2025 13:52:08 07/15/2025 10:22:44 Dysuria 37276171 R30.0 [id number] will call with ua results [id number] Lyn Marmolejo MD [facility] ([facility]) [address] [place] [address] 07/16/2025 12:05:46 07/17/2025 11:01:38 Atrial fibrillation 57981805 I48.91 warfarin therapyd/c naproxen d/t hx of bleeding [id number] Lyn Marmolejo MD [facility] ([facility]) [address] [place] [phone] 07/23/2025 11:35:38 07/24/2025 12:08:17 Atrial fibrillation 91453670 I48.91 warfarin therapyd/c naproxen d/t hx of bleeding Health Concerns Section Related Observation LastModified by Organization Detai ls LastModified Time None Recorded Concern Status LastModified by Organization Details LastModified Time None Recorded Payers Encounter Date Sequence Insurance Name Policy Number Policy Hernandez Covered Member ID Hernandez Member ID Guarantor Name 07/23/2025 1 [place]ANT[place] - [place]PO) [id number] Odilia Ulloa [id number] Odilia Ulloa 07/23/2025 2 [place] Odilia Ulloa [id number] Odilia Ulloa OBGyn Episode No OBEpisode recorded.
--- OUTSIDE RECORDS SUMMARY | 2025-09-25 08:27 | XMS_ITS | Encounter Summary ---
Author Organization [facility] Address [address] [place] [address] Care Team Providers Care Slot Tag Inserter Name Role Phone Rico Muñiz MD, Sharan Jaime Primary Care Provider Encounter Details Date Type Department Care Team (Latest Contact Info) Description 08/05/2001 Outpatient Historical [facility] Sharan Gómez Jr., MD [address] [place] [address] Generalized anxiety disorder (Primary Dx); Hypopotassemia Social History Tobacco Use Types Packs/Day Years Used Date Smoking Tobacco: Never Assessed Comments Unknown Sex and Gender Information Value Date Recorded Sex Assigned at Not on file 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
--- OUTSIDE RECORDS SUMMARY | 2025-09-25 08:27 | XMS_ITS | Encounter Summary ---
Author Organization [facility] Address [address] [place] [address] Care Team Providers Care Sql Server Dba Name Role Phone Rico Muñiz MD, Sharan Jaime Primary Care Provider Encounter Details Date Type Department Care Team (Latest Contact Info) Description 02/03/2002 Outpatient Historical [facility] Sharan Gómez Jr., MD [address] [place] [address] HEART VALVE REPLAC NEC (Primary Dx); [facility] ANTICOAG USE Social History Tobacco Use Types Packs/Day Years Used Date Smoking Tobacco: Never Assessed Comments Unknown Sex and Gender Information Value Date Recorded Sex Assigned at Not on file 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
--- OUTSIDE RECORDS SUMMARY | 2025-09-25 08:27 | XMS_ITS | Encounter Summary ---
Author Organization [facility] Address [address] [place] [address] Care Team Providers Care Slug Press Operator Name Role Phone Rico Muñiz MD, Sharan Jaime Primary Care Provider Encounter Details Date Type Department Care Team (Latest Contact Info) Description 10/31/2001 Outpatient Historical [facility] Sharan Gómez Jr., MD [address] [place] [address] ATRIAL FIBRILLATION (CMS/HCC) (Primary Dx); [facility] ANTICOAG USE; HEART VALVE REPLAC NEC Social History Tobacco Use Types Packs/Day Years Used Date Smoking Tobacco: Never Assessed Comments Unknown Sex and Gender Information Value Date Recorded Sex Assigned at Not on file 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
--- OUTSIDE RECORDS SUMMARY | 2025-09-25 08:27 | XMS_ITS | Encounter Summary ---
Author Organization [facility] Address [address] [place] [address] Care Team Providers Care Copper Etcher Name Role Phone Rico Muñiz MD, Sharan Jaime Primary Care Provider Encounter Details Date Type Department Care Team (Latest Contact Info) Description 11/28/2001 Outpatient Historical [facility] Sharan Gómez Jr., MD [address] [place] [address] URIN TRACT INFECTION NOS (Primary Dx); [facility] ANTICOAG USE Social History Tobacco Use Types Packs/Day Years Used Date Smoking Tobacco: Never Assessed Comments Unknown Sex and Gender Information Value Date Recorded Sex Assigned at Not on file Legal 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
--- OUTSIDE RECORDS SUMMARY | 2025-09-25 08:27 | XMS_ITS | Continuity of Care Document ---
Author Organization DAI Haas [facility] Luis M, LArie, [facility] ([facility]) Address [address] [place] [address] Care Team Providers Care Funeral Home Assistant Name Role Phone LYN MARMOLEJO Primary Care Provider [phone] Assessment No assessment recorded. Plan of Treatment Reminders Order Date Submit Date Provider Last Modified By Organization Details Last Modified Time Details Appointments SENIOR LIVING VISIT 2024 08:50A M Lyn Marmoleoj MD Not available Not available Not available Lab PT/INR 2024 1105 0[address] [facility] ([facility]), [address] [place], [address], 09/02/2025 13:34:27 Referral None recorded . Procedures None recorded . Surgeries None recorded . Imaging None recorded . Medication Orders None recorded . Patient TargetsNo targets recorded. Patient InstructionsNo instructions recorded. Reason for Referral None Reported. Results Created Date Observation Date Name Description Value Unit Range Abnormal Flag Note LastModifiedBy Organization Detail LastModifiedTime 08/07/2008/07/2025 PT/IN R Protime 26.3 Not Available [facility] ([facility]) [address] [place], [address], 08/07/2025 11:40:14 08/07/2008/07/2025 PT/IN R INR 2.2 Not Available [facility] ([facility]) [address] [place], [address], 08/07/2025 11:40:14 08/17/20 25 08/17/2025 CBC WBC 6.3 x10 4.0-10 .5 Not Available [facility] [address] [facility], [place], [address], 08/17/2025 15:57:00 08/17/20 25 08/17/2025 CBC RBC 3.45 x10 3.50-5 .50 low Not Available [facility] [address] [facility], [place], [address], 08/17/2025 15:57:00 08/17/20 25 08/17/2025 CBC HGB 12.4 g/dL 12.0-1 6.0 Not Available [facility] [address] [facility], [place], [address], 08/17/2025 15:57:00 08/17/20 25 08/17/2025 CBC HCT 37.7 % 37.0-4 7.0 Not Available [facility] [address] [facility], [place], [address], 08/17/2025 15:57:00 08/17/20 25 08/17/2025 CBC MCV 109.2 fL 80.0-9 9.9 high Not Available [facility] [address] [facility], [place], [address], 08/17/2025 15:57:00 08/17/20 25 08/17/2025 CBC MCH 36.0 pg 27.0-3 2.0 high Not Available [facility] [address] [facility], [place], [address], 08/17/2025 15:57:00 08/17/20 25 08/17/2025 CBC MCHC 32.9 g/dL 32.0-3 6.0 Not Available [facility] [address] [facility], [place], [address], 08/17/2025 15:57:00 08/17/20 25 08/17/2025 CBC RDW 12.7 % 11.5-1 4.5 Not Available [facility] [address] [facility], [place], [address], 08/17/2025 15:57:00 08/17/20 25 08/17/2025 CBC plt 239.0 x10 140.0- 451.0 Not Available [facility] [address] [place] [facility], [place], [address], 08/17/2025 15:57:00 08/17/20 25 08/17/2025 CBC lymphocytes % 27.7 % 20.0-5 0.0 Not Available [facility] [address] [facility], [place], [address], 08/17/2025 15:57:00 08/17/20 25 08/17/2025 CBC granulcytes % 56.9 % 30.0-7 0.0 Not Available [facility] [address] [place] [facility] 1, [place], [address], 08/17/2025 15:57:00 08/17/20 25 08/17/2025 CBC monocytes % 10.1 % 2.0-16 .0 Not Available [facility] [address] [place] [facility] 1, [place], [address], 08/17/2025 15:57:00 08/17/20 25 08/17/2025 CBC granulcytes# 3.6 x10 Not Cyndi ilable [facility] [address] [place] [facility] 1, [place], [address], 08/17/2025 15:57:00 08/17/20 25 08/17/2025 CBC lymphocytes # 1.8 x10 Not Available [facility] [address] [facility] [address], [place], [address], 08/17/2025 15:57:00 08/17/20 25 08/17/2025 CBC monocytes # 0.6 x10 Not Avai lable [facility] [address] [facility], [place], [address], 08/17/2025 15:57:00 08/17/20 25 08/17/2025 TSH TSH 0.81 uIU/m L 0.49-3 .82 Not Available [facility] [address] [facility] [address], [place], [address], 08/17/2025 16:04:05 08/17/2008/18/2025 PERIP HERAL BLOOD SMEAR REVIE W peripheral blood smear review Macro cytos is 1 + Ovalo cytes 1 + Polyc hroma mikhail 1 + Revie w of the perip heral smear revea ls adequ ate numbe rs of plate lets. Revie w of perip heral smear confi jace autom ated resul ts. Not Available [facility] [address] , [place], [address], 08/18/2025 15:11:08 08/17/2008/19/2025 METHY LMALO SE ACID [...] : 63-24 1 nmol/ L Not Available [facility] [address] [place], [address], 08/20/2025 00:38:15 08/17/20 25 08/19/2025 METHY LMALO [...] ure to nitro us oxide . Demetrio kumari J, et al., Destiny Inter n Med. 1999; 131(5 ):331 -9. Note 1 This test was devel oped and its hernan tical perfo rmanc e cresencio cteri stics have been deter mined by [facility] [employer]stic s. It has not been clear ed or appro shiela by the FDA. This assay has been valid ated pursu ant to the CLIA regul ation s and is used for clini luisito purpo ses. Not Available [facility] [address] [place], [address], 08/20/2025 00:38:15 08/17/2008/19/2025 PROTE IN, TOTAL AND PROTE IN ELECT ROPHO RESIS W/ REFL [place] protein, total 7.1 g/dL 6.1-8. 1 normal Not Available [address], [address], 08/20/2025 00:38:16 08/17/20 25 08/19/2025 PROTE IN, TOTAL AND PROTE IN ELECT ROPHO RESIS W/ REFL [place] albumin 4.5 g/dL 3.8-4. 8 normal Not Available [address], [address], 08/20/2025 00:38:16 08/17/2008/19/2025 PROTE IN, TOTAL AND PROTE IN ELECT ROPHO RESIS W/ REFL [place] alpha 1 globulin 0.3 g/dL 0.2-0. 3 normal Not Available [address], [address], 08/20/2025 00:38:16 08/17/20 25 08/19/2025 PROTE IN, TOTAL AND PROTE IN ELECT ROPHO RESIS W/ REFL [place] alpha 2 globulin 0.5 g/dL 0.5-0. 9 normal Not Available [address], [address], 08/20/2025 00:38:16 08/17/20 25 08/19/2025 PROTE IN, TOTAL AND PROTE IN ELECT ROPHO RESIS W/ REFL [place] beta 1 globulin 0.4 g/dL 0.4-0. 6 normal Not Available [address], [address], 08/20/2025 00:38:16 08/17/20 25 08/19/2025 PROTE IN, TOTAL AND PROTE IN ELECT ROPHO RESIS W/ REFL [place] beta 2 globulin 0.3 g/dL 0.2-0. 5 normal Not Available [facility] [address], [address], 08/20/2025 00:38:16 1008/19/2025 PROTE IN, TOTAL AND PROTE IN ELECT ROPHO RESIS W/ REFL [place] gamma globulin 1.1 g/dL 0.8-1. 7 normal Not Available [facility] [address], [address], 08/20/2025 00:38:16 08/17/20 25 08/19/2025 PROTE IN, TOTAL AND PROTE IN ELECT ROPHO RESIS W/ REFL [place] interpretati on No restr icted band (M-sp mear) seen. Not Available [facility] [address] [place], [address], 08/20/2025 00:38:16 08/17/2008/19/2025 PTH, INTAC T (ICMA [...] Joie l High Not Available [facility] [place] [address] [place], [address], 08/20/2025 00:38:16 08/17/2008/19/2025 PTH, INTAC T (ICMA ) AND IONIZ ED CALCI UM calcium 10.2 mg/dL 8.6-10 .4 normal Not Available [facility] [address] [place], [address], 08/20/2025 00:38:16 08/17/20 25 08/19/2025 PTH, INTAC T (ICMA ) AND IONIZ ED CALCI UM calcium, ionized 5.6 mg/dL 4.7-5. 5 high Not Available [facility] [place] [address] [place], [address], 08/20/2025 00:38:16 08/17/20 25 08/19/2025 T4, FREE T4, free 1.9 NG/dL 0.8-1. 8 high Not Available [facility] [address] [place], [address], 08/20/2025 00:38:17 08/17/20 25 08/19/2025 VITAM IN B12 vitamin B12 >2000 pg/mL 200-11 00 high Not Available [facility] [address] [place], [address], 08/20/2025 00:38:18 08/17/20 25 08/17/2025 PT/IN R Protime 21.5 Not Available [facility] ([facility]) [address] [place] [address], [address], 08/17/2025 14:33:48 08/17/20 25 08/17/2025 PT/IN R INR 1.8 Not Available [facility] ([facility]) [address] [place] [address], [address], 08/17/2025 14:33:48 09/02/20 25 09/02/2025 PT/IN R Protime 29.0 Not Available [facility] ([facility]) [address] [place] [address], [address], 09/02/2025 13:17:30 09/02/20 25 09/02/2025 PT/IN R INR 2.4 Not Available [facility] ([facility]) [address] [place] [address], [address], 09/02/2025 13:17:30 08/05/20 25 08/04/2025 XR, cervi luisito spine , 2 or 3 view No observ ation record ed. [facility] [address] [place], [address], 08/07/2025 13:25:55 08/05/2008/04/2025 XR, shoul vito, 2 or more view No observ ation record ed. [facility] [address] [place], [address], 08/07/2025 13:25:55 09/09/2009/08/2025 US, echoc ardio gram, trans thora cic, compl ete, w/ color flow No observ ation record ed. [facility] [address] [place], [address], 09/11/2025 09:19:21 09/15/2009/15/2025 MAMMO , scree ilya, digit al, bilat eral No observ ation record ed. [email or web address] [place] [address] [address] [place], [address], 09/16/2025 16:09:54 Result Notes None recorded. Problems Name Problem SNOMED Code Status Onset Date Resolution Date Notes Provider Name and Address Organization Details Recorded Time Depressi ve disorder 47007363 Completed 202010/14/2021 Depressi on - Status is Inactive ; 10/14/20 11:08AM by Maryellen Marmolejo PA-C, Annotati on/Adden dum; Promoted ; acuity set as *; FELISHA hamilton, [facility], L.L.CJosue 5 07:56:57 Herpes zoster 0442107 Completed 202201/02/2025 SHINGLES FELISHA hamilton, [facility], L.L.CJosue 5 07:56:03 Dysthymi a 27143551 Active 2022 DEPRESSI ON WITH ANXIETY FELISHA hamilton, [facility], L.L.CJosue 5 07:55:28 Benign essentia l hyperten jovanni 8642364 Active 2022 FELISHA hamilton, [facility] 5 07:55:28 Gastroes ophageal reflux disease 314568904 Active 2022 FELISHA DESIR null, [facility] 5 07:55:28 Fracture of upper end of humerus 180510843 Completed 202201/02/2025 CLOSED FRACTURE OF PROXIMAL END OF RIGHT HUMERUS, SEQUELA FELISHA hamilton, [facility] 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 5 07:56:22 Atrial fibrilla tion 55630699 Active 2022 FELISHA hamilton, [facility] 3 14:45:05 Coronary atherosc lerosis 121393249 Active 2022 bare metal stents to circ and LAD 2011 FELISHA hamilton, [facility]. 3 14:46:30 Iron deficien cy anemia 57240602 Active 2022 FELISHA hamilton, [facility] 5 07:55:28 Hypothyr oidism 92020147 Active 2022 FELISHA hamilton, [facility] 3 14:45:59 Anxiety 31588101 Active 2022 FELISHA hamilton, [facility] 3 14:46:54 Viral hepatiti s C 45525876 Active 2022 FELISHA hamilton, [facility] 5 07:55:28 Moderate recurren t major depressi on 70093611 Active 2023 FELISHA DESIR null, [facility], Janelle.C. 5 07:55:28 Need for personal care assistan ce 12900286377 016120 Active 2023 FELISHA DESIR null, [facility], YovaniCJosue 5 07:55:28 Frail elderly 853518899 Active 2023 FELISHA DESIR null, [facility], ClariceL.C. 5 07:55:28 Seasonal allergic rhinitis 500340369 Active 2023 FELISHA DESIR null, [facility], Diane.L.C. 5 07:55:28 Chronic pain 57495939 Active 2023 FELISHA DESIR null, [facility], Diane.L.CJosue 5 07:55:28 Dementia 67319881 Active 2023 FELISHA DESIR null, [facility], Diane.L.C. 5 07:55:28 Constipa tion 90780958 Active 2023 FELISHA DESIR null, [facility], L.L.C. 5 07:55:44 Hyperlip idemia 97544996 Active 2024 FELISHA DESIR null, [facility], L.L.C. 5 07:59:38 Occult blood detected in feces 14377301 Active 2024 FELISHA DESIR null, [facility]. 5 09:13:35 Mean corpuscu lar volume above referenc e range 084105786 Active 2024 FELISHA DESIR null, [facility], L.L.CJosue 5 09:14:07 Hypercal cemia 69590183 Active [address] [facility] L[facility]L.[facility]. 5 10:07:49 Vitamin D deficien cy 21948222 Active 2024 Lyn Marmolejo MD [address] [place] [address], [phone], [facility], L.LJosueCJosue 5 12:54:55 Hyperpar athyroid ism 09034761 Active 2024 Lyn Marmolejo MD [address] [place] [address], [phone], [facility], LJosueLJosueCJosue 5 12:54:56 Dysuria 81542050 Active [address] [facility], L.L.CJosue 5 14:08:08 Problem Notes None recorded. Procedures Surgical History Date Name Laterality Status Provider Name and Address Organization Details Recorded Time 2024 Most Recent Mammogram completed FELISHA DESIR [facility] 5 16:09:39 2024 esophagogastroduodenoscopy completed YANELIS DESIR [facility], L.L.CJosue 5 12:23:16 2024 colonoscopy completed FELISHA DESIR [facility], L.L.CJosue 5 10:20:11 2023 esophagogastroduodenoscopy completed KIARA DUCKWORTH [facility], L.L.CJosue 4 12:40:14 2023 colonoscopy completed Lyn Marmolejo MD [address] [place] [address], [phone], [facility], L.L.CJosue 5 10:19:30 cholecystectomy completed FELISHA DESIR [facility], L.L.CJosue 3 14:48:40 replacement of mitral valve complete d FELISHA DESIR [facility] 3 14:49:22 section completed FELISHA DESIR [facility] 3 15:14:43 Imaging Results None recorded. Procedure Notes None recorded. Medical Equipment None Reported. Allergies Allergen ID Allergen Name Allergen Category Reaction Reaction Severity Criticality Documentation Date Start Date Code Code System Note Provider Name and Address Organization Details Recorded Time 1376 morphine medicatio n Not available Not available Not available 02/07/2023 7052 RxNorm Dottylizzie Celis [facility] 3 10:45:47 1377 diltiazem Not available Not available Not available Not available 02/07/2023 3443 RxNorm Dottylizzie Celis [facility] 3 10:45:54 4552 Bactrim medicatio n other severe high 04/17/2023 32095 9 RxNorm do not give d/t couma din Lola Vidal [facility] 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 12:26:48 Medications Name Sig Start Date [...] THSC Levothyro xine Sodium daily 06/08 completed 15242; Recorded 01/09/20 6:06PM by Shirley Quevedo (Authori [...] BY MOUTH EVERY OTHER DAY FOR anemia 09/09/ 2024 01/02 /2025 completed Not Available Not Available Not Available [...] Social History Question Answer Notes LastModified by SarbariizKindling Details LastModified Time Tobacco Smoking Status [facility] 04/17/2023 14:48:01 What Was The Date Of Your Most Recent Tobacco Screening? 05/27/2025 [email or web address] Information not available 05/27/2025 Sex: Unknown Functional Status Question Answer Note LastModified by Organizat ion Details LastModified Time Do you use any illicit or recreational drugs? No [email or web address] Information not available 04/17/2023 Do you or have you ever used any other forms of tobacco or nicotine? No [email or web address] Information not available 06/29/2023 What is your level of alcohol consumption? None Information not available 04/17/2023 Mental Status None recorded. Family History Relationship Description Onset Age of this Age Resolved Age Notes LastModified by Organization Details LastModified Time Unspecified Relation Coronary atherosclero sis [email or web address] Not available 06/29 15:13:48 Medical History No medical history recorded. Gynecological History Statement/Question Response Most Recent Mammogram 09/15/2025 Obstetrics History GPAL:G 0 P 0 0 0 0 Immunizations Vaccine Type Date Status Note Provider Nam e and Address Organization Details Recorded Time Influenza, MDCK, quadrivalent, PF 2 [facility] 10/10/2024 08:38:58 COVID-19, mRNA, LNP-S, PF, 100 mcg/0.5mL dose or 50 mcg/0.25mL dose [address] [facility] 10/10/2024 08:38:58 COVID-19, mRNA, LNP-S, PF, 100 mcg/0.5mL dose or 50 mcg/0.25mL dose [address] [facility] 10/10/2024 08:38:58 COVID-19, mRNA, LNP-S, PF, 100 mcg/0.5mL dose or 50 mcg/0.25mL dose [address] [facility] 10/10/2024 08:38:58 Pneumococcal conjugate PCV20, polysaccharide SFF031 conjugate, adjuvant, PF [address] [facility] 10/10/2024 08:38:58 COVID-19, mRNA, LNP-S, bivalent, PF, 50 mcg/0.5 mL or 25mcg/0.25 mL dose [address] [facility] 10/10/2024 08:38:58 pneumococcal polysaccharide PPV23 [address] [facility] L.L.CJouse 04/17/2023 12:02:00 Tdap 1 completed FELISHA hamilton, [facility] 10/10/2024 08:38:58 Influenza, split virus, trivalent, PF [address] [facility] 04/17/2023 12:02:00 influenza, split (incl. purified surface antigen) 0 completed FELISHA hamilton, [facility] L[facility]CJosue 04/17/2023 12:02:00 Hep A, adult 1 completed FELISHA DESIR null, [facility] 10/10/2024 08:38:58 Hep A, adult 9 completed FELISHA DESIR null, [facility] 10/10/2024 08:38:58 Influenza, split virus, quadrivalent, PF 1 completed FELISHA DESIR null, [facility] 10/10/2024 08:38:58 Influenza, split virus, quadrivalent, PF 9 completed FELISHA DESIR null, [facility] 10/10/2024 08:38:58 Influenza, MDCK, trivalent, PF 4 completed FELISHA DESIR null, [facility] 10/10/2024 08:38:58 Influenza, MDCK, quadrivalent, preservative 3 completed FELISHA DESIR null, [facility] 10/10/2024 08:38:58 pneumococcal polysaccharide PPV23 8 completed Lola Vidal null, [facility] 07/02/2024 08:41:52 Influenza, split virus, quadrivalent, PF 8 completed Lola Vidal null, [facility] 07/02/2024 08:41:52 zoster recombinant 3 completed Lola Vidal null, [facility] 07/02/2024 14:52:40 COVID-19, mRNA, LNP-S, PF, 50 mcg/0.5 mL 4 completed FELISHA DESIR null, [facility] 10/10/2024 08:38:58 Influenza, MDCK, trivalent, preservative 4 completed FELISHA DESIR null, [facility] 10/10/2024 08:38:58 Past Encounters Encounter ID Performer Location Encounter Start Date Encounter Closed Date Diagnosis/Indication Diagnosis SNOMED-CT Code Diagnosis ICD10 Code Diagnosis IMO Codes Diagnosis Note [id number] Lyn Marmolejo MD [facility] ([facility]) [address] [place] [phone] 08/04/2025 10:06:02 08/04/2025 15:14:44 Right cervical root neuropathy [id number] 6509391 M54.12 86075420 Pain of ri ght shoulder region 6636142359 M25.511 [id number] Lyn Marmolejo MD [facility]) [address] [place] [phone] 08/07/2025 11:39:45 08/10/2025 10:28:08 Atrial fibrillation 69129744 I48.91 warfarin therapyd/c naproxen d/t hx of bleeding [id number] Lyn Marmolejo MD [facility] ([facility]) [address] [place] [phone] 08/17/2025 13:17:17 08/18/2025 09:51:22 History of mechanical prosthetic mitral valve replacement 492426685 Z95.2 Mean corpu scular volume above reference range 864332065 R71.8 523343 Hypercalcemia 21868630 E 83.52 9955 Drug therapy finding 309 961376 Z79.899 78593665 Generalize d anxiety disorder 70156969 F41.1 [id number] Lyn Marmolejo MD [facility]) [address] [place] [id number] 09/02/2025 13:16:47 09/03/2025 10:16:00 History of mechanical prosthetic mitral valve replacement 030157093 Z95.2 Health Concerns Section Related Observation LastModified by Organization Detai ls LastModified Time None Recorded Concern Status LastModified by Organization Details LastModified Time None Recorded Payers Encounter Date Sequence Insurance Name Policy Number Policy Hernandez Covered Member ID Hernandez Member ID Guarantor Name 09/02/2025 1 [place]ANT[place] - PPO) [id number] Odilia Ulloa [id number] Odilia Ulloa 09/02/2025 2 [place] Odilia Ulloa [id number] Odilia Ulloa OBGyn Episode No OBEpisode recorded.
--- OUTSIDE RECORDS SUMMARY | 2025-09-25 08:27 | XMS_ITS | Encounter Summary ---
Author Organization [facility] Address [address] [place] [address] Care Team Providers Care Online Content Coordinator Name Role Phone Rico Muñiz MD, Sharan Jaime Primary Care Provider Encounter Details Date Type Department Care Team (Latest Contact Info) Description 03/03/2002 Outpatient Historical [facility] Sharan Gómez Jr., MD [address] [place] [address] HYPERTENSION NOS (Primary Dx); ENDOCARDITIS NOS; AFTERCARE [facility] ANTICOAG USE; FAMILY HX-DIABETES MELLITUS Social History Tobacco Use Types Packs/Day Years Used Date Smoking Tobacco: Never Assessed Comments Unknown Sex and Gender Information Value Date Recorded Sex Assigned at Not on file Legal Sex Female 5:42 AM [employer]ULP BLE[employer] Gender Identity Not on file Sexual Orientation Not on file documented as of this encounter Plan of Treatment Not on file documented as of this encounter Visit Diagnoses Diagnosis Unspecified essential hypertension- Primary Endocarditis, valve unspecified, unspecified cause long term care social worker (current) use of anticoagulants Long-term (current) use of anticoagulants Family history of diabetes mellitus documented in this encounter Care Teams Online Content Coordinator Relationship Specialty Start Date End Date Sharan Gómez Jr., MD [address] [place] [phone] PCP - General 08/10/05 documented as of this encounter
--- OUTSIDE RECORDS SUMMARY | 2025-09-25 08:27 | XMS_ITS | Encounter Summary ---
Author Organization [facility] Address [address] [place] [address] Care Team Providers Care Parking Enforcement Specialist Name Role Phone Rico Muñiz MD, Sharan Jaime Primary Care Provider Encounter Details Date Type Department Care Team (Latest Contact Info) Description 07/02/2001 Outpatient Historical [facility] Echocardiography - [facility] [address] [place] [id number] Social History Tobacco Use Types Packs/Day Years Used Date Smoking Tobacco: Never Assessed Comments Unknown Sex and Gender Information Value Date Recorded Sex Assigned at Not on file 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
--- OUTSIDE RECORDS SUMMARY | 2025-09-25 08:27 | XMS_ITS | Encounter Summary ---
Author Organization [facility] Address [address] [place] [address] Care Team Providers Care Aquatic Centre Manager Name Role Phone Rico Muñiz MD, Sharan Jaime Primary Care Provider Encounter Details Date Type Department Care Team (Latest Contact Info) Description 01/03/2002 Outpatient Historical [facility] Sharan Gómez Jr., MD [address] [place] [address] FLU W RESP MANIFEST NEC (Primary Dx); [facility] ANTICOAG USE Social History Tobacco Use Types Packs/Day Years Used Date Smoking Tobacco: Never Assessed Comments Unknown Sex and Gender Information Value Date Recorded Sex Assigned at Not on file 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
--- OUTSIDE RECORDS SUMMARY | 2025-09-25 08:27 | XMS_ITS | Encounter Summary ---
Author Organization [facility] Address [address] [place] [address] Care Team Providers Care Negative Cutter Name Role Phone Rico Muñiz MD, Sharan Jaime Primary Care Provider Encounter Details Date Type Department Care Team (Latest Contact Info) Description 07/06/2006 Outpatient Historical [facility] Services-[facility] [place] [address] [place] [phone] Jennifer Cash MD NO ADDRESS ON FILE Unspecified Essential Hypertension (Primary Dx); Other Chest Pain Social History Tobacco Use Types Packs/Day Years Used Date Smoking Tobacco: Never Assessed Comments Unknown Sex and Gender Information Value Date Recorded Sex Assigned at Not on file 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
--- OUTSIDE RECORDS SUMMARY | 2025-09-25 08:27 | XMS_ITS | Encounter Summary ---
Author Organization [facility] Address [address] [place] [address] Care Team Providers Care Tonsorial Artist Name Role Phone Rico Muñiz MD, Sharan Jaime Primary Care Provider Encounter Details Date Type Department Care Team (Late st Contact Info) Description 07/02/2001 Outpatient Historical [facility] Serge Arrington MD [address] [facility] [address] [place] [phone] Encounter for long-term (current) use of other medications (Primary Dx); Unspecified essential hypertension Social History Tobacco Use Types Packs/Day Years Used Date Smoking Tobacco: Never Assessed Comments Unknown Sex and Gender Information Value Date Recorded Sex Assigned at Not on file 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
[2025-09-25 08:28] VITALS: BP 131/105; PULSE 78; RESP 17; O2SAT 95
--- OUTSIDE RECORDS SUMMARY | 2025-09-25 08:28 | XMS_ITS | Continuity of Care Document ---
Author Organization [facility] Luis M, Keenan, [facility] ([facility]) Address [address] [place] [address] Care Team Providers Care Thread Milling Machine Set Up Operator Name Role Phone LYN MARMOLEJO Primary Care Provider Assessment No assessment recorded. Plan of Treatment Reminders Order Date Submit Date Provider Last Modified By Organization Details Last Modified Time Details Appointments SHELTER VISIT 2024 08:50A M Lyn Marmolejo MD Not available Not available Not available Lab [facility] [address] [place], [address], 07/30/2025 11:49:49 Referral None recorded . Procedures None recorded . Surgeries None recorded . Imaging None recorded . Medication Orders None recorded . Patient TargetsNo targets recorded. Patient InstructionsNo instructions recorded. Reason for Referral None Reported. Results Created Date Observation Date Name Description Value Unit Range Abnormal Flag Note LastModifiedBy Organization Detail LastModifiedTime 07/02/2007/02/2025 PT/IN R Protime 42.3 Not Available [facility] ([facility]) [address] [place], [address], 07/01/2025 10:25:07 07/02/20 25 07/02/2025 PT/IN R INR 3.5 Not Available [facility] ([facility]) [address] [place], [address], 07/01/2025 10:25:07 07/06/20 25 07/06/2025 PT/IN R Protime 39.5 Not Available [facility] ([facility]) [address] [place], [address], 07/06/2025 11:23:26 07/06/20 25 07/06/2025 PT/IN R INR 3.3 Not Available [facility] ([facility]) [address] [place], [address], 07/06/2025 11:23:26 07/09/20 25 07/09/2025 PT/IN R Protime 34.6 Not Available [facility] [address] [place], [address], 07/09/2025 13:44:17 07/09/20 25 07/09/2025 PT/IN R INR 2.9 Not Available [facility] [address] [place], [address], 07/09/2025 13:44:17 07/14/20 25 07/14/2025 URINA LYSIS WITH MICRO color YELLOW Not Available [facility] [address] [facility] [address], [place], [address], 07/14/2025 14:52:32 07/14/20 25 07/14/2025 URINA LYSIS WITH MICRO clarity CLEAR Not Available [facility] [address] [facility], [place], [address], 07/14/2025 14:52:32 07/14/20 25 07/14/2025 URINA LYSIS WITH MICRO glu NEGATI VE Not Available [facility] [address] [facility] [address], [place], [address], 07/14/2025 14:52:32 09/1607/14/2025 URINA LYSIS WITH MICRO bili NEGATI VE Not Available [facility] [address], [place], [address], 07/14/2025 14:52:32 07/14/2007/14/2025 URINA LYSIS WITH MICRO ket NEGATI VE Not Available [facility] [address], [place], [address], 07/14/2025 14:52:32 07/14/2007/14/2025 URINA LYSIS WITH MICRO S.g 1.010 1.005- 1.025 Not Available [facility] [address], [place], [address], 07/14/2025 14:52:32 07/14/2007/14/2025 URINA LYSIS WITH MICRO pH 5.0 5.0-7. 0 Not Available [facility] [address], [place], [address], 07/14/2025 14:52:32 07/14/2007/14/2025 URINA LYSIS WITH MICRO pro NEGATI VE Not Available [facility] [address], [place], [address], 07/14/2025 14:52:32 07/14/2007/14/2025 URINA LYSIS WITH MICRO uro 0.2 E.U./D L Not Available [facility] [address], [place], [address], 07/14/2025 14:52:32 07/14/2007/14/2025 URINA LYSIS WITH MICRO nit NEGATI VE Not Available [facility] [address], [place], [address], 07/14/2025 14:52:32 07/14/2007/14/2025 URINA LYSIS WITH MICRO blo NEGATI VE Not Available [facility] [address] [facility] [address], [place], [address], 07/14/2025 14:52:32 07/14/20 25 07/14/2025 URINA LYSIS WITH MICRO jose elias NEGATI VE Not Available [facility] [address] [facility] [address], [place], [address], 07/14/2025 14:52:32 07/14/20 25 07/14/2025 URINA LYSIS WITH MICRO WBC 0-1 abnormal Not Available [facility] [address] [facility] [address], [place], [address], 07/14/2025 14:52:32 07/14/20 25 07/14/2025 URINA LYSIS WITH MICRO RBC NEGATI VE Not Available [facility] [address] [facility] [address], [place], [address], 07/14/2025 14:52:32 07/14/20 25 07/14/2025 URINA LYSIS WITH MICRO epi cells 1-2 abnormal Not Available [facility] [address] [facility] [address], [place], [address], 07/14/2025 14:52:32 07/14/20 25 07/14/2025 URINA LYSIS WITH MICRO bacteria 1-2 HYALIN E CAST abnormal Not Available [facility] [address] [facility] [address], [place], [address], 07/14/2025 14:52:32 07/14/20 25 07/14/2025 URINA LYSIS WITH MICRO other NEG Not Available [facility] [address] [facility] [address], [place], [address], 07/14/2025 14:52:32 07/14/20 25 07/16/2025 CULTU RE, URINE , ROUTI NE culture, urine, routine SEE NOTE CULTU RE, URINE , ROUTI NE Micro Numbe r: [id number] Test Statu s: Final Speci men Sourc e: Urine Speci men Quali ty: Adequ ate Resul t: No Growt h Not Available [facility] [address] [place], [address], 07/16/2025 02:51:13 07/17/2007/17/2025 PT/IN R Protime 34.4 Not Available [facility] ([facility]) [address] [place], [address], 07/16/2025 12:07:15 07/17/2007/17/2025 PT/IN R INR 2.9 Not Available [facility] ([facility]) [address] [place] [address], [address], 07/16/2025 12:07:15 07/23/20 25 07/23/2025 PT/IN R Protime 47.0 Not Available [facility] ([facility]) [address] [place], [address], 07/23/2025 11:36:06 07/23/20 25 07/23/2025 PT/IN R INR 3.9 Not Available [facility] ([facility]) [address] [place], [address], 07/23/2025 11:36:06 07/30/20 25 07/30/2025 PT/IN R Protime 30.2 Not Available [facility] ([facility]) [address] [place], [address], 07/30/2025 11:33:15 07/30/20 25 07/30/2025 PT/IN R INR 2.5 Not Available [facility] ([facility]) [address] [place], [address], 07/30/2025 11:33:15 08/05/2008/04/2025 XR, cervi luisito spine , 2 or 3 view No observ ation record ed. [facility] [address] [place], [address], 08/07/2025 13:25:55 08/05/2008/04/2025 XR, shoul vito, 2 or more view No observ ation record ed. [facility] [address] [place], [address], 08/07/2025 13:25:55 09/09/2009/08/2025 US, echoc ardio gram, trans thora cic, compl ete, w/ color flow No observ ation record ed. [facility] [address] [place], [address], 09/11/2025 09:19:21 09/15/2009/15/2025 MAMMO , scree ilya, digit al, bilat eral No observ ation record ed. [email or web address] [place] [address] [address] [place], [address], 09/16/2025 16:09:54 Result Notes None recorded. Problems Name Problem SNOMED Code Status Onset Date Resolution Date Notes Provider Name and Address Organization Details Recorded Time Depressi ve disorder 20014249 Completed 202010/14/2021 Depressi on - Status is Inactive ; 10/14/20 11:08AM by Maryellen Marmolejo PA-C, Annotati on/Adden dum; Promoted ; acuity set as *; FELISHA hamilton, [facility] 07:56:57 Herpes zoster 8324436 Completed 202201/02/2025 SHINGLES FELISHA hamilton [facility] 03/07/202 5 07:56:03 Dysthymi a 49798436 Active 2022 DEPRESSI ON WITH ANXIETY FELISHA hamilton, [facility] 5 07:55:28 Benign essentia l hyperten jovanni 0057255 Active 2022 FELISHA hamilton, [facility] 5 07:55:28 Gastroes ophageal reflux disease 434439388 Active 2022 FELISHA DESIR null, [facility] 5 07:55:28 Fracture of upper end of humerus 440683248 Completed 202201/02/2025 CLOSED FRACTURE OF PROXIMAL END OF RIGHT HUMERUS, SEQUELA FELISHA hamilton, [facility] 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 5 07:56:22 Atrial fibrilla tion 03567121 Active 2022 FELISHA hamilton, [facility] 3 14:45:05 Coronary atherosc lerosis 566849205 Active 2022 bare metal stents to circ and LAD 2011 FELISHA hamilton, [facility] 3 14:46:30 Iron deficien cy anemia 36658165 Active 2022 FELISHA hamilton, [facility] 5 07:55:28 Hypothyr oidism 45564539 Active 2022 FELISHA hamilton, [facility] 3 14:45:59 Anxiety 71677223 Active 2022 FELISHA hamilton, [facility] 3 14:46:54 Viral hepatiti s C 73773174 Active 2022 FELISHA hamilton, [facility] 5 07:55:28 Moderate recurren t major depressi on 54805381 Active 2023 FELISHA DESIR null, [facility] 5 07:55:28 Need for personal care assistan ce [id number] 911514 Active 2023 FELISHA hamilton, [facility] 5 07:55:28 Frail elderly 978538861 Active 2023 FELISHA DESIR null, [facility] 5 07:55:28 Seasonal allergic rhinitis 301387860 Active 2023 FELISHA hamilton, [facility] 5 07:55:28 Chronic pain 86899303 Active 2023 FELISHA hamilton, [facility] 5 07:55:28 Dementia 80455282 Active 2023 FELISHA hamilton, [facility] 5 07:55:28 Constipa tion 56900822 Active 2023 FELISHA DESIR null, [facility] 5 07:55:44 Hyperlip idemia 16899551 Active 2024 FELISHA hamilton, [facility] 5 07:59:38 Occult blood detected in feces 27239070 Active 2024 FELISHA hamilton, [facility] 5 09:13:35 Mean corpuscu lar volume above referenc e range 538757600 Active 2024 FELISHA hamilton [facility] 5 09:14:07 Hypercal cemia 67316151 Active 2024 FELISHA DESIR alfonso, [facility] 5 10:07:49 Vitamin D deficien cy 08079089 Active 2024 Lyn Marmolejo MD [address] [place] [address], [address] [place] [address] 5, [facility] 5 12:54:55 Hyperpar athyroid ism 77133954 Active 2024 Lyn Marmolejo MD [address] [place] [address], [address], [facility] 5 12:54:56 Dysuria 60770132 Active 2024 Dotty hamilton, [facility] 5 14:08:08 Problem Notes None recorded. Procedures Surgical History Date Name Laterality Status Provider Name and Address Organization Details Recorded Time 2024 Most Recent Mammogram completed FELISHA DESIR [facility] 5 16:09:39 2024 esophagogastroduodenoscopy completed YANELIS DESIR [facility] 5 12:23:16 2024 colonoscopy completed FELISHA DESIR [facility] 5 10:20:11 2023 esophagogastroduodenoscopy completed KIARA DUCKWORTH [facility] 4 12:40:14 2023 colonoscopy completed Lyn Marmolejo MD [address] [place] [address], [address], [facility] 03/07/202 5 10:19:30 cholecystectomy completed FELISHA [facility] 3 14:48:40 replacement of mitral valve complete d FELISHA [facility] 3 14:49:22 section completed FELISHA [facility] 3 15:14:43 Imaging Results None recorded. Procedure Notes None recorded. Medical Equipment None Reported. Allergies Allergen ID Allergen Name Allergen Category Reaction Reaction Severity Criticality Documentation Date Start Date Code Code System Note Provider Name and Address Organization Details Recorded Time 1376 morphine medicatio n Not available Not available Not available 02/07/2023 7052 RxNorm Dotty Celis [facility] 3 10:45:47 1377 diltiazem Not available Not available Not available Not available 02/07/2023 3443 RxNorm Dotty Celis [facility] 3 10:45:54 4552 Bactrim medicatio n other severe high 04/17/2023 72855 9 RxNorm do not give d/t couma din Lola Vidal [facility] 4 13:34:33 36652 diltiazem hydrochlo ride medicatio n Not available Not available Not available 05/26/202335416 1 RxNorm Comme nt: Recor ded 12/29 7:56A M by Yanelis Kitchen on, DATA ANALYTICS ANALYST, 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 ; Promo talib; Trey bernal ce: *; Reaso n: Drug aller gy; ; FELISHA DESIR [facility] 3 12:26:44 03939 morphine sulfate medicatio n Not available Not available Not available 05/26/2023 51552 RxNorm Comme nt: Recor ded 12/29 7:56A M by Yanelis Kitchen on, DATA ANALYTICS ANALYST, 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 ; Debra mayers; Trey bernal ce: *; Reaso n: Drug aller gy; ; FELISHA DESIR [facility] 12:26:48 Medications Name Sig Start Date [...] THSC Levothyro xine Sodium daily 06/08 completed 22302; Recorded 01/09/20 6:06PM by Shirley Quevedo (Authori [...] Social History Question Answer Notes LastModified by [employer] Details LastModified Time Tobacco Smoking Status Former Smoker FELISHA hamilton, [facility] 04/17/2023 14:48:01 What Was The Date Of Your Most Recent Tobacco Screening? 05/27/2025 [email or web address] Information not available 05/27/2025 Sex: Unknown Functional Status Question Answer Note LastModified by [email or web address] ion Details LastModified Time Do you use any illicit or recreational drugs? No [email or web address] Information not available 04/17/2023 Do you or have you ever used any other forms of tobacco or nicotine? No [email or web address] Information not available 06/29/2023 What is your level of alcohol consumption? None [email or web address] Information not available 04/17/2023 Mental Status None [...] MDCK, quadrivalent, PF 2 completed FELISHA hamilton [facility] 10/10/2024 08:38:58 COVID-19, mRNA, LNP-S, PF, 100 mcg/0.5mL dose or 50 mcg/0.25mL dose 1 completed FELISHA DESIR null, [facility] 10/10/2024 08:38:58 COVID-19, mRNA, LNP-S, PF, 100 mcg/0.5mL dose or 50 mcg/0.25mL dose 1 completed FELISHA DESIR null, [facility] 10/10/2024 08:38:58 COVID-19, mRNA, LNP-S, PF, 100 mcg/0.5mL dose or 50 mcg/0.25mL dose 2 completed FELISHA hamilton, [facility] 10/10/2024 08:38:58 Pneumococcal conjugate PCV20, polysaccharide [id number] conjugate, adjuvant, PF 3 completed FELISHA hamilton, [facility] 10/10/2024 08:38:58 COVID-19, mRNA, LNP-S, bivalent, PF, 50 mcg/0.5 mL or 25mcg/0.25 mL dose 3 completed FELISHA hamilton, [facility] 10/10/2024 08:38:58 pneumococcal polysaccharide PPV23 3 completed FELISHA DESIR null, [facility] 04/17/2023 12:02:00 Tdap 1 completed FELISHA hamilton, [facility] 10/10/2024 08:38:58 Influenza, split virus, trivalent, PF 3 completed FELISHA hamilton, [facility] 04/17/2023 12:02:00 influenza, split (incl. purified surface antigen) 0 completed FELISHA hamilton, [facility] 04/17/2023 12:02:00 Hep A, adult 1 completed FELISHA DESIR null, [facility] 10/10/2024 08:38:58 Hep A, adult 9 completed FELISHA DESIR null, [facility] 10/10/2024 08:38:58 Influenza, split virus, quadrivalent, PF 1 completed FELISHA DESIR null, [facility] 10/10/2024 08:38:58 Influenza, split virus, quadrivalent, PF 9 [facility] 10/10/2024 08:38:58 Influenza, MDCK, trivalent, PF 4 completed FELISHA DESIR null, [facility] 10/10/2024 08:38:58 Influenza, MDCK, quadrivalent, preservative 3 completed FELISHA hamilton, [facility] 10/10/2024 08:38:58 pneumococcal polysaccharide PPV23 8 completed Lola hamilton, [facility] 07/02/2024 08:41:52 Influenza, split virus, quadrivalent, PF 8 completed Lola Vidal null, [facility] 07/02/2024 08:41:52 zoster recombinant 3 completed Lola hamilton, [facility] 07/02/2024 14:52:40 COVID-19, mRNA, LNP-S, PF, 50 mcg/0.5 mL 4 completed FELISHA hamilton, [facility] 10/10/2024 08:38:58 Influenza, MDCK, trivalent, preservative 4 completed FELISHA DESIR [facility] 10/10/2024 08:38:58 Past Encounters Encounter ID Performer Location Encounter Start Date Encounter Closed Date Diagnosis/Indication Diagnosis SNOMED-CT Code Diagnosis ICD10 Code Diagnosis IMO Codes Diagnosis Note [id number] Lyn Marmolejo MD [facility] ([facility]) [address] [place] [address] 07/01/2025 10:24:23 07/02/2025 11:29:38 Atrial fibrillation 40747884 I48.91 warfarin therapy [id number] Lyn Marmolejo MD [facility]) [address] [place] [phone] 07/03/2025 08:14:55 07/13/2025 10:06:37 Benign essential hypertension 0835670 I10 Coronary atherosclerosis 733690548 I25.119 Atrial fibrillation 4943 6004 I48.91 warfarin therapyd/c naproxen d/t hx of bleeding Hyperlipidemia 90138375 E78.00 Hypothyroidism 32116725 E03.9 Hyperparathyroidism 6699 9008 E21.3 66040 [id number] Lyn Marmolejo MD [facility] ([facility]) [address] [place] [address] 07/06/2025 11:22:40 07/07/2025 09:33:46 History of mechanical prosthetic mitral valve replacement 539082310 Z95.2 [id number] Lyn Marmolejo MD [facility] ([facility]) [address] [place] [address] 07/09/2025 13:42:58 07/10/2025 14:24:59 Atrial fibrillation 05437163 I48.91 warfarin therapyd/c naproxen d/t hx of bleeding [id number] Lyn Marmolejo MD [facility]) [address] [place] [phone] 07/14/2025 13:52:08 07/15/2025 10:22:44 Dysuria 75842848 R30.0 26070 will call with ua results [id number] Lyn Marmolejo MD [facility] ([facility]) [address] [place] [address] 07/16/2025 12:05:46 07/17/2025 11:01:38 Atrial fibrillation 07253568 I48.91 warfarin therapyd/c naproxen d/t hx of bleeding [id number] Lyn Marmolejo MD [facility] ([facility]) [address] [place] [address] 07/23/2025 11:35:38 07/24/2025 12:08:17 Atrial fibrillation 94347801 I48.91 warfarin therapyd/c naproxen d/t hx of bleeding [id number] Lny Marmolejo MD [facility] ([facility]) [address] [place] [address] 07/30/2025 11:32:37 07/31/2025 09:44:15 History of mechanical prosthetic mitral valve replacement 329025303 Z95.2 Health Concerns Section Related Observation LastModified by Organization Detai ls LastModified Time None Recorded Concern Status LastModified by Organization Details LastModified Time None Recorded Payers Encounter Date Sequence Insurance Name Policy Number Policy Hernandez Covered Member ID Hernandez Member ID Guarantor Name 07/30/2025 1 [place]ANT[place] - PPO) [id number] Odilia Ulloa [id number] Odilia Ulloa 07/30/2025 2 [place] Odilia Ulloa [id number] Odilia Ulloa OBGyn Episode No OBEpisode recorded.
--- OUTSIDE RECORDS SUMMARY | 2025-09-25 08:28 | XMS_ITS | Encounter Summary ---
Author Organization [facility] Address [address] [place] [address] Care Team Providers Care Barmaid Name Role Phone Rico Muñiz MD, Sharan Jaime Primary Care Provider Encounter Details Date Type Department Care Team (Latest Contact Info) Description 10/01/2000 Outpatient Historical [facility] Sharan Gómez Jr., MD [address] [place] [address] Endocarditis, valve unspecified, unspecified cause (Primary Dx); Other and unspecified hyperlipidemia; Osteoarthrosis, unspecified whether generalized or localized, unspecified site Social History Tobacco Use Types Packs/Day Years Used Date Smoking Tobacco: Never Assessed Comments Unknown Sex and Gender Information Value Date Recorded Sex Assigned at Not on file 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
--- OUTSIDE RECORDS SUMMARY | 2025-09-25 08:28 | XMS_ITS | Encounter Summary ---
Author Organization [facility] Address [address] [place] [address] Care Team Providers Care Batch Heat Treat Operator Name Role Phone Rico Muñiz MD, Sharan Jaime Primary Care Provider Encounter Details Date Type Department Care Team (Latest Contact Info) Description 02/15/2001 Outpatient Historical [facility] Sharan Gómez Jr., MD [address] [place] [address] Unspecified essential hypertension (Primary Dx); Heart valve replaced by other means Social History Tobacco Use Types Packs/Day Years Used Date Smoking Tobacco: Never Assessed Comments Unknown Sex and Gender Information Value Date Recorded Sex Assigned at Not on file Legal 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
--- OUTSIDE RECORDS SUMMARY | 2025-09-25 08:28 | XMS_ITS | Encounter Summary ---
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
--- OUTSIDE RECORDS SUMMARY | 2025-09-25 08:28 | XMS_ITS | Encounter Summary ---
Author Organization [facility] Address [address] [place] [address] Care Team Providers Care Cable Placer Name Role Phone Rico Muñiz MD, Sharan Jaime Primary Care Provider Encounter Details Date Type Department Care Team (Latest Contact Info) Description 06/28/2000 Outpatient Historical [facility] Sharan Gómez Jr., MD [address] [place] [address] Pure hypercholesterolem (Primary Dx); Hypopotassemia; Heart valve replaced by other means Social History Tobacco Use Types Packs/Day Years Used Date Smoking Tobacco: Never Assessed Comments Unknown Sex and Gender Information Value Date Recorded Sex Assigned at Not on file Legal Sex Female 5: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
--- OUTSIDE RECORDS SUMMARY | 2025-09-25 08:28 | XMS_ITS | Encounter Summary ---
Author Organization [facility] Address [address] Attn: [place] [address] Care Team Providers Care Knitting Machine Tender Name Role Phone Rico Muñiz MD, Sharan Jaime Primary Care Provider Encounter Details Date Type Department Care Team (Late st Contact Info) Description 08/16/2000 Outpatient Historical Sharan Gómez Jr., MD [address] [place] [address] Social History Tobacco Use Types Packs/Day Years Used Date Smoking Tobacco: Never Assessed Comments Unknown Sex and Gender Information Value Date Recorded Sex Assigned at Not on file Legal Sex Female 5:42 AM [employer] Gender Identity Not on file Sexual Orientation Not on file documented as of this encounter Plan of Treatment Not on file documented as of this encounter Visit Diagnoses Not on filedocumented in this encounter Care Teams Knitting Machine Tender Relationship Specialty Start Date End Date Sharan Gómez Jr., MD [address] [place] [address] PCP - General 08/10/05 documented as of this encounter
--- OUTSIDE RECORDS SUMMARY | 2025-09-25 08:28 | XMS_ITS | Continuity of Care Document ---
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 [email or web address] Not available 08/17/2025 14:38:16 Plan of Treatment Reminders Order Date Submit Date Provider Last Modified By Organization Details Last Modified Time Details Appointments ALF VISIT 2024 08:50A M Lyn Marmolejo MD Not available Not available Not available Lab protein electro phoresi s panel, serum or plasma 2024 [employer] [facility], [address] [place] [address], [address] [place], [address], 08/20/2025 00:38:16 vitamin B12, serum 2024 025 [employer] [facility], [address] [facility], [place], [address], 08/20/2025 00:38:18 mma (methyl malonic acid), serum 2024 025 [employer] [facility], [address] [facility] [address], [address], [place], [address], 08/20/2025 00:38:15 CBC [id number] [place] [facility], [address] [facility], [address], [address], 08/17/2025 15:57:00 luis daniel garza lab - periphe ral blood smear review 2024 [employer] [facility], [address] [place] [address], [address], [place], [address], 08/18/2025 15:11:08 PT/INR 2024 [facility] ([facility]), [address] [place], [address], 08/17/2025 15:57:14 PTH (parath yroid hormone ), intact + calcium , serum or plasma 2024 [employer] [facility], [address] [place] [address], [facility] [address], [place], [address], 08/20/2025 00:38:16 thyrotr opin, QN, serum or plasma 2024 [place] [facility], [address] [facility], [facility] [address], [place], [address], 08/17/2025 16:04:05 T4, free, serum 2024 [employer] [facility], [address] [place] [address], [address], [place], [address], 08/20/2025 00:38:17 Referral None recorde d. Procedures None recorde d. Surgeries None recorde d. Imaging US, echocar diogram , transth oracic, complet e, w/ color flow [facility], [address] [place], [address], 08/24/2025 09:16:34 Medication Orders lorazep am 0.5 mg tablet 2024 025 [facility], [address] [place] [address], [address], 08/18/2025 14:21:51 Patient TargetsNo targets recorded. Patient Instructions Encounter Date Encounter Id Patient Instructions Last Modified By Organization Details Last Modified Time 08/17/2025 [id number] Folic Acid Not available 07/30 14:47:55 Reason for Referral None Reported. Results Created Date Observation Date Name Description Value Unit Range Abnormal Flag Note LastModifiedBy Organization Detail LastModifiedTime 07/23/2007/23/2025 PT/IN R Protime 47.0 Not Available [facility]) [address] [place], [address], 07/23/2025 11:36:06 07/23/2007/23/2025 PT/IN R INR 3.9 Not Available [facility] ([facility]) [address] [place], [address], 07/23/2025 11:36:06 07/30/2007/30/2025 PT/IN R Protime 30.2 Not Available [facility] ([facility]) [address] [place], [address], 07/30/2025 11:33:15 07/30/2007/30/2025 PT/IN R INR 2.5 Not Available [facility] ([facility]) [address] [place], [address], 07/30/2025 11:33:15 08/07/2008/07/2025 PT/IN R Protime 26.3 Not Available [facility] ([facility]) [address] [place], [address], 08/07/2025 11:40:14 08/07/2008/07/2025 PT/IN R INR 2.2 Not Available [facility] ([facility]) [address] [place], [address], 08/07/2025 11:40:14 08/17/2008/17/2025 CBC WBC 6.3 x10 4.0-10 .5 Not Available [facility] [address] [facility] [address], [place], [address], 08/17/2025 15:57:00 08/17/20 25 08/17/2025 CBC RBC 3.45 x10 3.50-5 .50 low Not Available [facility] [address] [facility] [address], [place], [address], 08/17/2025 15:57:00 08/17/20 25 08/17/2025 CBC HGB 12.4 g/dL 12.0-1 6.0 Not Available [facility] [address] [facility] [address], [place], [address], 08/17/2025 15:57:00 08/17/20 25 08/17/2025 CBC HCT 37.7 % 37.0-4 7.0 Not Available [facility] [address] [facility] [address], [place], [address], 08/17/2025 15:57:00 08/17/20 25 08/17/2025 CBC MCV 109.2 fL 80.0-9 9.9 high Not Available [facility] [address] [facility], [place], [address], 08/17/2025 15:57:00 08/17/20 25 08/17/2025 CBC MCH 36.0 pg 27.0-3 2.0 high Not Available [facility] [address] [facility], [place], [address], 08/17/2025 15:57:00 08/17/20 25 08/17/2025 CBC MCHC 32.9 g/dL 32.0-3 6.0 Not Available [facility] [address] [facility] [address], [place], [address], 08/17/2025 15:57:00 08/17/20 25 08/17/2025 CBC RDW 12.7 % 11.5-1 4.5 Not Available [facility] [address] [facility] [address], [place], [address], 08/17/2025 15:57:00 08/17/2008/17/2025 CBC plt 239.0 x10 140.0- 451.0 Not Available [facility] [address] [facility] [address], [place], [address], 08/17/2025 15:57:00 08/17/20 25 08/17/2025 CBC lymphocytes % 27.7 % 20.0-5 0.0 Not Available [facility] [address] [facility] [address], [place], [address], 08/17/2025 15:57:00 08/17/20 25 08/17/2025 CBC granulcytes % 56.9 % 30.0-7 0.0 Not Available [facility] [address] [facility] [address], [place], [address], 08/17/2025 15:57:00 08/17/20 25 08/17/2025 CBC monocytes % 10.1 % 2.0-16 .0 Not Available [facility] [address] [facility] [address], [place], [address], 08/17/2025 15:57:00 08/17/20 25 08/17/2025 CBC granulcytes# 3.6 x10 Not Cyndi ilable [facility] [address] [facility] [address], [place], [address], 08/17/2025 15:57:00 08/17/20 25 08/17/2025 CBC lymphocytes # 1.8 x10 Not Available [facility] [address] [facility] [address], [place], [address], 08/17/2025 15:57:00 08/17/20 25 08/17/2025 CBC monocytes # 0.6 x10 Not Avai lable [facility] [address] [facility] [address], [place], [address], 08/17/2025 15:57:00 08/17/20 25 08/17/2025 TSH TSH 0.81 uIU/m L 0.49-3 .82 Not Available [facility] [address] [facility] [address], [place], [address], 08/17/2025 16:04:05 08/17/20 25 08/18/2025 PERIP HERAL BLOOD SMEAR REVIE W peripheral blood smear review Macro cytos is 1 + Ovalo cytes 1 + Polyc hroma mikhail 1 + Revie w of the perip heral smear revea ls adequ ate numbe rs of plate lets. Revie w of perip heral smear confi jace autom ated resul ts. Not Available [facility] [address] [place], [address], 08/18/2025 15:11:08 08/17/20 25 08/19/2025 METHY LMALO [...] : 63-24 1 nmol/ L Not Available [facility] [address] [place], [address], 08/20/2025 00:38:15 08/17/20 25 08/19/2025 METHY LMALO [...] for clini luisito purpo ses. Not Available [facility] [address] [place], [address], 08/20/2025 00:38:15 08/17/20 25 08/19/2025 PROTE IN, TOTAL AND PROTE IN ELECT ROPHO RESIS W/ REFL [place] protein, total 7.1 g/dL 6.1-8. 1 normal Not Available [address], [address], 08/20/2025 00:38:16 08/17/20 25 08/19/2025 PROTE IN, TOTAL AND PROTE IN ELECT ROPHO RESIS W/ REFL [place] albumin 4.5 g/dL 3.8-4. 8 normal Not Available [address], [address], 08/20/2025 00:38:16 08/17/20 25 08/19/2025 PROTE IN, TOTAL AND PROTE IN ELECT ROPHO RESIS W/ REFL [place] alpha 1 globulin 0.3 g/dL 0.2-0. 3 normal Not Available [address], [address], 08/20/2025 00:38:16 08/17/20 25 08/19/2025 PROTE IN, TOTAL AND PROTE IN ELECT ROPHO RESIS W/ REFL [place] alpha 2 globulin 0.5 g/dL 0.5-0. 9 normal Not Available [address], [address], 08/20/2025 00:38:16 08/17/20 25 08/19/2025 PROTE IN, TOTAL AND PROTE IN ELECT ROPHO RESIS W/ REFL [place] beta 1 globulin 0.4 g/dL 0.4-0. 6 normal Not Available [address], [address], 08/20/2025 00:38:16 08/17/20 25 08/19/2025 PROTE IN, TOTAL AND PROTE IN ELECT ROPHO RESIS W/ REFL [place] beta 2 globulin 0.3 g/dL 0.2-0. 5 normal Not Available [facility] [place] [address] [place], [address], 08/20/2025 00:38:16 08/17/2008/19/2025 PROTE IN, TOTAL AND PROTE IN ELECT ROPHO RESIS W/ REFL [place] gamma globulin 1.1 g/dL 0.8-1. 7 normal Not Available [address], [address], 08/20/2025 00:38:16 08/17/2008/19/2025 PROTE IN, TOTAL AND PROTE IN ELECT ROPHO RESIS W/ REFL [place] interpretati on No restr icted band (M-sp mera) seen. Not Available [address], [address], 08/20/2025 00:38:16 08/17/2008/19/2025 PTH, INTAC T (ICMA [...] Joie l High Not Available [facility] [place] [address] [place], [address], 08/20/2025 00:38:16 08/17/2008/19/2025 PTH, INTAC T (ICMA ) AND IONIZ ED CALCI UM calcium 10.2 mg/dL 8.6-10 .4 normal Not Available [address] [place], [address], 08/20/2025 00:38:16 08/17/20 25 08/19/2025 PTH, INTAC T (ICMA ) AND IONIZ ED CALCI UM calcium, ionized 5.6 mg/dL 4.7-5. 5 high Not Available [facility] [address] [place], [address], 08/20/2025 00:38:16 08/17/20 25 08/19/2025 T4, FREE T4, free 1.9 NG/dL 0.8-1. 8 high Not Available [facility] [address] [place], [address], 08/20/2025 00:38:17 08/17/2008/19/2025 VITAM IN B12 vitamin B12 >2000 pg/mL 200-11 00 high Not Available [address], [address], 08/20/2025 00:38:18 08/17/20 25 08/17/2025 PT/IN R Protime 21.5 Not Available [facility] ([facility]) [address] [place], [address], 08/17/2025 14:33:48 08/17/20 25 08/17/2025 PT/IN R INR 1.8 Not Available [facility] ([facility]) [address] [place], [address], 08/17/2025 14:33:48 08/05/20 25 08/04/2025 XR, cervi luisito spine , 2 or 3 view No observ ation record ed. [facility] [address] [place], [address], 08/07/2025 13:25:55 08/05/20 25 08/04/2025 XR, shoul vito, 2 or more view No observ ation record ed. [facility] [address] [place], [address], 08/07/2025 13:25:55 09/09/2009/08/2025 US, echoc ardio gram, trans thora cic, compl ete, w/ color flow No observ ation record ed. QUENT[facility] [address] [facility], [place], [address], 09/11/2025 09:19:21 09/15/2009/15/2025 MAMMO , scree ilya, digit al, bilat eral No observ ation record ed. [email or web address] [place] [address] [address] [facility], [place], [address], 09/16/2025 16:09:54 Result Notes None recorded. Problems Name Problem SNOMED Code Status Onset Date Resolution Date Notes Provider Name and Address Organization Details Recorded Time Depressi ve disorder 41381332 Completed 202010/14/2021 Depressi on - Status is Inactive ; 10/14/20 11:08AM by Maryellen Marmolejo PA-C, Annotati on/Adden dum; Promoted ; acuity set as *; FELISHA hamilton [facility], L.L[facility]CJosue 5 07:56:57 Herpes zoster 5052248 Completed 202201/02/2025 SHINGLES FELISHA hamilton [facility], [facility].L.CJosue 5 07:56:03 Dysthymi a 51676438 Active 2022 DEPRESSI ON WITH ANXIETY FELISHA hamilton [facility], L.L.CJosue 5 07:55:28 Benign essentia l hyperten jovanni 9285647 Active 2022 FELISHA hamilton [facility] 5 07:55:28 Gastroes ophageal reflux disease 363377759 Active 2022 FELISHA hamilton [facility], L.L.CJosue 5 07:55:28 Fracture of upper end of humerus 896759954 Completed 202201/02/2025 CLOSED FRACTURE OF PROXIMAL END OF RIGHT HUMERUS, SEQUELA FELISHA hamilton, [facility] 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 5 07:56:22 Atrial fibrilla tion 66103182 Active 2022 FELISHA hamilton, [facility] 3 14:45:05 Coronary atherosc lerosis 031303888 Active 2022 bare metal stents to circ and LAD 2011 FELISHA hamilton, [facility] 3 14:46:30 Iron deficien cy anemia 13631256 Active 2022 FELISHA hamilton, [facility] 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 3 14:45:59 Anxiety 43466515 Active 2022 FELISHA hamilton, [facility] 3 14:46:54 Viral hepatiti s C 88377741 Active 2022 FELISHA hamilton, [facility] 5 07:55:28 Moderate recurren t major depressi on 47943070 Active 2023 FELISHA hamilton, [facility] 5 07:55:28 Need for personal care assistan ce 07687710089 833568 Active 2023 FELISHA hamilton, [facility] 5 07:55:28 Frail elderly 105807659 Active 2023 FELISHA DESIR null, [facility] 5 07:55:28 Seasonal allergic rhinitis 535772628 Active 2023 FELISHA DESIR null, [facility] 5 07:55:28 Chronic pain 57954096 Active 2023 FELISHA DESIR null, [facility] 5 07:55:28 Dementia 07447297 Active 2023 FELISHA DESIR null, [facility] 5 07:55:28 Constipa tion 97745986 Active 2023 FELISHA DESIR null, [facility] 5 07:55:44 Hyperlip idemia 90121460 Active 2024 FELISHA DESIR null, [facility] 5 07:59:38 Occult blood detected in feces 02539045 Active 2024 FELISHA DESIR null, [facility] 5 09:13:35 Mean corpuscu lar volume above referenc e range 924981245 Active 2024 FELISHA DESIR null, [facility] 5 09:14:07 Hypercal cemia 29846885 Active 2024 FELISHA DESIR null, [facility] 5 10:07:49 Vitamin D deficien cy 34613571 Active 2024 Lyn Marmolejo MD [address] [place] [address], [address], [facility] 5 12:54:55 Hyperpar athyroid ism 41594925 Active 2024 Lyn Marmolejo MD [address] [place], [address], [facility], YovaniCJosue 5 12:54:56 Dysuria 47565017 Active 2024 Dotty Celis null, [facility], LJosueLJosueCJosue 5 14:08:08 Problem Notes None recorded. Procedures Surgical History Date Name Laterality Status Provider Name and Address Organization Details Recorded Time 2024 Most Recent [facility] ClariceLDaisy 5 16:09:39 2024 esophagogastroduodenoscopy completed YANELIS WELSH [facility], LJosueLDaisy 5 12:23:16 2024 colonoscopy completed [facility], L.L.CJosue 5 10:20:11 2023 esophagogastroduodenoscopy completed KIARA DUCKWORTH [facility], L.L.CJosue 4 12:40:14 2023 colonoscopy completed Lyn Marmolejo MD [address] [place], [address], [facility], ClariceLJosueCJosue 5 10:19:30 cholecystectomy completed [facility] L.L.C[facility] 3 14:48:40 replacement of mitral valve complete d FELISHA [facility], ClariceLJosueCJosue 3 14:49:22 section completed [facility], LJosueLJosueCJosue 3 15:14:43 Imaging Results None recorded. Procedure Notes None recorded. Medical Equipment None Reported. Allergies Allergen ID Allergen Name Allergen Category Reaction Reaction Severity Criticality Documentation Date Start Date Code Code System Note Provider Name and Address Organization Details Recorded Time 1376 morphine medicatio n Not available Not available Not available 02/07/2023 7052 RxNorm [facility] 3 10:45:47 1377 diltiazem Not available Not available Not available Not available 02/07/2023 3443 RxNorm [facility] 3 10:45:54 4552 Bactrim medicatio n other severe high 04/17/2023 75668 9 RxNorm do not give d/t couma din Lola Marcy [facility], L.L.CJosue 4 13:34:33 [address] diltiazem hydrochlo ride medicatio n Not available Not available Not available 05/26/202326830 1 RxNorm Comme nt: Recor ded 12/29 7:56A M by Yanelis Kitchen on, ORACLE ANALYST, 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 ; Promo talib; Signi fican ce: *; Reaso n: Drug aller gy; ; [facility] 3 12:26:44 [address]155 morphine sulfate medicatio n Not available Not available Not available 05/26/2023 20210 RxNorm Comme nt: Recor ded 12/29 7:56A M by Yanelis Kitchen on, ORACLE ANALYST, 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 ; Promo talib; Signi fican ce: *; Reaso n: Drug aller gy; ; [facility] 3 12:26:48 Medications Name Sig [...] completed 436; Recorded 09/25/20 22 2:38PM by Feilsha Desir LPN (Authori candelario through Lyn Marmolejo [...] THSC Levothyro xine Sodium daily 06/08 completed 85387; Recorded 01/09/20 6:06PM by Shirley Quevedo (Authori [...] Updated DateTime 5 154.94 cm 28.9 kg/m2 96628.6 3 g 97.6 [degF] 76 /min 95 % 138/84 mm[Hg] Dotty Vimal [facility] 5 13:43:55 Social History Question Answer Notes LastModified by [email or web address] Details LastModified Time Tobacco Smoking Status Former Smoker FELISHA hamilton [facility] 04/17/2023 14:48:01 What Was The Date Of Your Most Recent Tobacco Screening? 05/27/2025 [email or web address] Information not available 05/27/2025 Sex: Unknown Functional Status Question Answer Note LastModified by [email or web address] Details LastModified Time Do you use any illicit or recreational drugs? No [email or web address] Information not available 04/17/2023 Do you or have you ever used any other forms of tobacco or nicotine? No [email or web address] Information not available 06/29/2023 What is your level of alcohol consumption? None [email or web address] Information not available 04/17/2023 Mental Status None recorded. Family History Relationship Description Onset Age of this Age Resolved Age Notes LastModified by Organization Details LastModified Time Unspecified Relation Coronary atherosclero sis [email or web address] Not available 06/29 15:13:48 Medical History No medical history recorded. Gynecological History Statement/Question Response Most Recent Mammogram 09/15/2025 Obstetrics History GPAL:G 0 P 0 0 0 0 Immunizations Vaccine Type Date Status Note Provider Nam e and Address Organization Details Recorded Time Influenza, MDCK, quadrivalent, PF 2 completed FELISHA hamilton [facility] 10/10/2024 08:38:58 COVID-19, mRNA, LNP-S, PF, 100 mcg/0.5mL dose or 50 mcg/0.25mL dose 1 completed FELISHA hamilton [facility] 10/10/2024 08:38:58 COVID-19, mRNA, LNP-S, PF, 100 mcg/0.5mL dose or 50 mcg/0.25mL dose 1 completed FELISHA hamilton [facility] 10/10/2024 08:38:58 COVID-19, mRNA, LNP-S, PF, 100 mcg/0.5mL dose or 50 mcg/0.25mL dose 2 completed FELISHA hamilton [facility] 10/10/2024 08:38:58 Pneumococcal conjugate PCV20, polysaccharide DRS212 conjugate, adjuvant, PF 3 completed FELISHA hamilton [facility] 10/10/2024 08:38:58 COVID-19, mRNA, LNP-S, bivalent, PF, 50 mcg/0.5 mL or 25mcg/0.25 mL dose 3 completed FELISHA hamilton [facility] 10/10/2024 08:38:58 pneumococcal polysaccharide PPV23 3 completed FELISHA hamilton [facility] 04/17/2023 12:02:00 Tdap 1 completed FELISHA hamilton [facility] 10/10/2024 08:38:58 Influenza, split virus, trivalent, PF 3 completed FELISHA hamilton [facility] 04/17/2023 12:02:00 influenza, split (incl. purified surface antigen) 0 completed FELISHA hamilton [facility] 04/17/2023 12:02:00 Hep A, adult 1 completed FELISHA DESIR null, [facility] 10/10/2024 08:38:58 Hep A, adult 9 completed FELISHA DESIR null, [facility] 10/10/2024 08:38:58 Influenza, split virus, quadrivalent, PF 1 completed FELISHA DESIR null, [facility] 10/10/2024 08:38:58 Influenza, split virus, quadrivalent, PF 9 completed FELISHA DESIR null, [facility] 10/10/2024 08:38:58 Influenza, MDCK, trivalent, PF 4 completed FELISHA DESIR null, [facility] 10/10/2024 08:38:58 Influenza, MDCK, quadrivalent, preservative 3 completed FELISHA DESIR null, [facility] 10/10/2024 08:38:58 pneumococcal polysaccharide PPV23 8 completed Lola Vidal null, [facility] 07/02/2024 08:41:52 Influenza, split virus, quadrivalent, PF 8 completed Lola Vidal null, [facility] 07/02/2024 08:41:52 zoster recombinant 3 completed Lola Vidal null, [facility] 07/02/2024 14:52:40 COVID-19, mRNA, LNP-S, PF, 50 mcg/0.5 mL 4 completed FELISHA DESIR null, [facility] 10/10/2024 08:38:58 Influenza, MDCK, trivalent, preservative 4 completed FELISHA hamilton [facility], L.LDaisy 10/10/2024 08:38:58 Past Encounters Encounter ID Performer Location Encounter Start Date Encounter Closed Date Diagnosis/Indication Diagnosis SNOMED-CT Code Diagnosis ICD10 Code Diagnosis IMO Codes Diagnosis Note [id number] Lyn Marmolejo MD [facility] ([facility]) [address] [place] [address] 5 07/23/2025 11:35:38 07/24/2025 12:08:17 Atrial fibrillation 15061778 I48.91 warfarin therapyd/c naproxen d/t hx of bleeding [id number] Lyn Marmolejo MD [facility] ([facility]) [address] [place] [address] 5 07/30/2025 11:32:37 07/31/2025 09:44:15 History of mechanical prosthetic mitral valve replacement 356090088 Z95.2 [id number] Lyn Marmolejo MD [facility] ([facility]) [address] [place] [address] 5 08/04/2025 10:06:02 08/04/2025 15:14:44 Right cervical root neuropathy 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 7917811 M54.12 21083304 [facility] 5399002292 M25.511 [id number] Lyn Marmolejo MD [facility] ([facility]) [address] [place], [place] [address] 08/07/2025 11:39:45 08/10/2025 10:28:08 Atrial fibrillation 27085978 I48.91 warfarin therapyd/c naproxen d/t hx of bleeding [id number] Lyn Marmolejo MD [facility] ([facility]) [address] [place], [place] [address] 08/17/2025 13:17:17 08/18/2025 09:51:22 History of mechanical prosthetic mitral valve replacement 245321761 Z95.2 Mean corpu scular volume above reference range 628764726 R71.8 286296 Hypercalcemia 46151835 E 83.52 9955 Drug therapy finding 309 454943 Z79.899 23193350 Generalize d anxiety disorder 81788967 F41.1 848604 Health Concerns Section Related Observation LastModified by Organization Detai ls LastModified Time None Recorded Concern Status LastModified by Organization Details LastModified Time None Recorded Payers Encounter Date Sequence Insurance Name Policy Number Policy Hernandez Covered Member ID Hernandez Member ID Guarantor Name 08/17/2025 1 [place]ANT[place] - [place]PO) [id number] Odilia Ulloa [id number] Odilia Ulloa 08/17/2025 2 [place] Odilia Ulloa [id number] Odilia Ulloa Notes Date Note Type Note [...] and low on fuel. Lyn Marmolejo MD [address] [place] [address], [phone], [facility], DemetraJosue 08/17/2025 14:48:51 OBGyn Episode No OBEpisode recorded.
--- OUTSIDE RECORDS SUMMARY | 2025-09-25 08:28 | XMS_ITS | Encounter Summary ---
Author Organization [facility] Address [address] Attn: [place] [address] Care Team Providers Care Oxygen Therapist Name Role Phone Rico Muñiz MD, Sharan Jaime Primary Care Provider Encounter Details Date Type Department Care Team (Late st Contact Info) Description 06/22/2000 Outpatient Historical Serge Arrington MD [address] 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
--- OUTSIDE RECORDS SUMMARY | 2025-09-25 08:28 | XMS_ITS | Encounter Summary ---
Author Organization [facility] Address [address] [place] [address] Care Team Providers Care Appeals Referee Name Role Phone Rico Muñiz MD, Sharan Jaime Primary Care Provider Encounter Details Date Type Department Care Team (Latest Contact Info) Description 01/30/2001 Outpatient Historical [facility] Sharan Gómez Jr., MD [address] [place] [address] Endocarditis, valve unspecified, unspecified cause (Primary Dx); Acute sinusitis, unspecified; Bronchitis, not specified as acute or chronic Social History Tobacco Use Types Packs/Day Years Used Date Smoking Tobacco: Never Assessed Comments Unknown Sex and Gender Information Value Date Recorded Sex Assigned at Not on file 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
--- OUTSIDE RECORDS SUMMARY | 2025-09-25 08:28 | XMS_ITS | Encounter Summary ---
Author Organization [facility] Address [address] [place] [address] Care Team Providers Care Anesthetic Assistant Name Role Phone Rico Muñiz MD, Sharan Jaime Primary Care Provider Encounter Details Date Type Department Care Team (Latest Contact Info) Description 08/31/2000 Outpatient Historical [facility] Sharan Gómez Jr., MD [address] [place] [address] Pure hypercholesterolem (Primary Dx); Dietary surveil/counseling aide Social History Tobacco Use Types Packs/Day Years Used Date Smoking Tobacco: Never Assessed Comments Unknown Sex and Gender Information Value Date Recorded Sex Assigned at Not on file 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
--- OUTSIDE RECORDS SUMMARY | 2025-09-25 08:28 | XMS_ITS | Encounter Summary ---
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 Social History Tobacco Use Types Packs/Day Years Used Date Smoking Tobacco: Never Assessed Comments Unknown Sex and Gender Information Value Date Recorded Sex Assigned at Not on file 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 Gender Identity Not on file Sexual Orientation Not on file documented as of this encounter Plan of Treatment Not on file documented as of this encounter Visit Diagnoses Diagnosis Osteoarthrosis, unspecified whether generalized or localized, unspecified site- Primary Heart valve replaced by other means penitentiary (current) use of anticoagulants Long-term (current) use of anticoagulants documented in this encounter Care Teams Gravel Wheeler Relationship Specialty Start Date End Date Sharan Gómez Jr., MD [address] [place] [id number] PCP - General 08/10/05 documented as of this encounter
--- OUTSIDE RECORDS SUMMARY | 2025-09-25 08:28 | XMS_ITS | Encounter Summary ---
Author Organization [facility] Address [address] [facility] Attn: [place] [address] Care Team Providers Care Cooker Chip Name Role Phone Rico Muñiz MD, Sharan Jaime Primary Care Provider Encounter Details Date Type Department Care Team (Late st Contact Info) Description 11/09/2000 Outpatient Historical Sharan Gómez Jr., MD [address] [place] [address] Social History Tobacco Use Types Packs/Day Years Used Date Smoking Tobacco: Never Assessed Comments Unknown Sex and Gender Information Value Date Recorded Sex Assigned at Not on file 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
--- OUTSIDE RECORDS SUMMARY | 2025-09-25 08:28 | XMS_ITS | Continuity of Care Document ---
Author Organization DAI - Kenneth Valentine [facility] Luis M, [place], [facility] ([facility]) Address [address] [place] [address] Care Team Providers Care Baker Bread Name Role Phone LYN MARMOLEJO Primary Care Provider Assessment No assessment recorded. Plan of Treatment Reminders Order Date Submit Date Provider Last Modified By Organization Details Last Modified Time Details Appointments SENIOR LIVING VISIT 2024 08:50A M Lyn Marmolejo MD Not available Not available Not available Lab PT/INR 2024 025 [facility] ([facility]), [address] [place], [address], 07/01/2025 11:04:48 Referral None recorded . Procedures None recorded . Surgeries None recorded . Imaging None recorded . Medication Orders None recorded . Patient TargetsNo targets recorded. Patient InstructionsNo instructions recorded. Reason for Referral None Reported. Results Created Date Observation Date Name Description Value Unit Range Abnormal Flag Note LastModifiedBy Organization Detail LastModifiedTime 06/05/2006/05/2025 HBA1C hemaglobin A1C 5.7 4.2-6. 5 Not Available [facility] [address], [place], [address], 06/05/2025 12:56:12 06/05/2006/05/2025 CMP (FEMA LE) glucose 86.0 mg/dL 60.0-9 9.0 Not Available [facility] [address], [place], [address], 06/05/2025 12:57:50 06/05/20 25 06/05/2025 CMP (FEMA LE) BUN (blood urea nitrogen) 17.0 mg/dL 10.0-2 6.0 Not Available [facility] [address] [facility], [place], [address], 06/05/2025 12:57:50 06/05/20 25 06/05/2025 CMP (FEMA LE) creatinine (serum) 0.9 mg/dL 0.4-1. 5 Not Available [facility] [address] [facility], [place], [address], 06/05/2025 12:57:50 06/05/20 25 06/05/2025 CMP (FEMA LE) BUN/creatini ne ratio 18.89 ratio Not Available [facility] [address] [facility], [place], [address], 06/05/2025 12:57:50 06/05/20 25 06/05/2025 CMP (FEMA LE) eGFR calculated 64.9 Not Available [facility] [address] [facility], [place], [address], 06/05/2025 12:57:50 06/05/20 25 06/05/2025 CMP (FEMA LE) total protein 7.6 g/dL 6.0-8. 5 Not Available [facility] [address] [facility], [place], [address], 06/05/2025 12:57:50 06/05/20 25 06/05/2025 CMP (FEMA LE) total bilirubin 1.1 mg/dL 0.2-1. 3 Not Available [facility] [address] [facility], [place], [address], 06/05/2025 12:57:50 06/05/20 25 06/05/2025 CMP (FEMA LE) albumin 4.5 g/dL 3.5-5. 5 Not Available [facility] [address] [facility], [place], [address], 06/05/2025 12:57:50 06/05/20 25 06/05/2025 CMP (FEMA LE) globulin 3.1 calc Not Available [facility] [address] [facility], [place], [address], 06/05/2025 12:57:50 06/05/20 25 06/05/2025 CMP (FEMA LE) AST (SGOT) 28.0 U/L 0.0-46 .0 Not Available [facility] [address] [facility], [place], [address], 06/05/2025 12:57:50 06/05/20 25 06/05/2025 CMP (FEMA LE) altv (SGPT) 14.0 U/L 13.0-6 9.0 normal Not Available [facility] [address] [facility], [place], [address], 06/05/2025 12:57:50 06/05/20 25 06/05/2025 CMP (FEMA LE) A/G ratio 1.5 ratio Not Available [facility] [address] [facility], [place], [address], 06/05/2025 12:57:50 06/05/20 25 06/05/2025 CMP (FEMA LE) ALP phos 87.0 U/L 30.0-1 40.0 normal Not Available [facility] [address] [facility], [place], [address], 06/05/2025 12:57:50 06/05/20 25 06/05/2025 CMP (FEMA LE) calcium 10.6 mg/dL 8.4-10 .5 high Not Available [facility] [address] [facility], [place], [address], 06/05/2025 12:57:50 06/05/20 25 06/05/2025 CMP (FEMA LE) sodium 140.0 mmol/ L 136.0- 145.0 Not Available [facility] [address] [facility], [place], [address], 06/05/2025 12:57:50 06/05/20 25 06/05/2025 CMP (FEMA LE) potassium 4.8 mmol/ L 3.5-5. 1 Not Available [facility] [address] [facility], [place], [address], 06/05/2025 12:57:50 06/05/20 25 06/05/2025 CMP (FEMA LE) chloride 106.0 mmol/ L 98.0-1 10.0 normal Not Available [facility] [address] [facility], [place], [address], 06/05/2025 12:57:50 06/05/20 25 06/05/2025 CMP (FEMA LE) C02 27.0 mmol/ L 22.0-3 1.0 Not Available [facility] [address] [facility], [place], [address], 06/05/2025 12:57:50 06/05/20 25 06/05/2025 CMP (FEMA LE) anion gap 7.0 calc Not Available [facility] [address] [facility], [place], [address], 06/05/2025 12:57:50 06/05/20 25 06/05/2025 CMP (FEMA LE) osmolality 290.0 calc Not Available [facility] [address] [facility], [place], [address], 06/05/2025 12:57:50 06/05/20 25 06/05/2025 LIPID PROFI LE (FEMA LE) cholesterol 227.0 mg/dL 0.0-20 0.0 high Not Available [facility] [address] [facility], [place], [address], 06/05/2025 12:57:53 06/05/20 25 06/05/2025 LIPID PROFI LE (FEMA LE) trig 134.0 mg/dL 0.0-15 0.0 Not Available [facility] [address] [facility], [place], [address], 06/05/2025 12:57:53 06/05/20 25 06/05/2025 LIPID PROFI LE (FEMA LE) HDL - direct 51.0 mg/dL >40.[address] [facility] [address] [facility], [place], [address], 06/05/2025 12:57:53 06/05/20 25 06/05/2025 LIPID PROFI LE (FEMA LE) VLDL - direct 26.8 mg/dL Not Available [facility] [address] [facility], [place], [address], 06/05/2025 12:57:53 06/05/20 25 06/05/2025 LIPID PROFI LE (FEMA LE) LDL - direct 149.2 mg/dL 0.0-13 0.0 high Not Available [facility] [address] [facility], [place], [address], 06/05/2025 12:57:53 06/05/20 25 06/05/2025 TSH TSH 0.83 uIU/m L 0.49-3 .82 Not Available [facility] [address] [facility], [place], [address], 06/05/2025 14:15:28 06/05/2006/06/2025 HEPAT ITIS B SURFA CE ANTIB RASHARD QL hepatitis B surface antibody ql NON-RE ACTIVE non-re active normal Not Available [facility] [address] [place], [address], 06/06/2025 09:58:04 06/11/2006/11/2025 CMP (FEMA LE) glucose 88.0 mg/dL 60.0-9 9.0 Not Available [facility] [address] [facility], [place], [address], 06/11/2025 13:16:16 06/11/20 25 06/11/2025 CMP (FEMA LE) BUN (blood urea nitrogen) 25.0 mg/dL 10.0-2 6.0 Not Available [facility] [address] [facility], [place], [address], 06/11/2025 13:16:16 06/11/20 25 06/11/2025 CMP (FEMA LE) creatinine (serum) 1.1 mg/dL 0.4-1. 5 Not Available [facility] [address] [facility], [place], [address], 06/11/2025 13:16:16 06/11/20 25 06/11/2025 CMP (FEMA LE) BUN/creatini ne ratio 22.73 ratio Not Available [facility] [address] [facility], [place], [address], 06/11/2025 13:16:16 06/11/20 25 06/11/2025 CMP (FEMA LE) eGFR calculated 51.5 Not Available [facility] [address] [facility], [place], [address], 06/11/2025 13:16:16 06/11/20 25 06/11/2025 CMP (FEMA LE) total protein 7.7 g/dL 6.0-8. 5 Not Available [facility] [address] [facility], [place], [address], 06/11/2025 13:16:16 06/11/20 25 06/11/2025 CMP (FEMA LE) total bilirubin 0.9 mg/dL 0.2-1. 3 Not Available [facility] [address] [facility] [address], [place], [address], 06/11/2025 13:16:16 06/11/20 25 06/11/2025 CMP (FEMA LE) albumin 4.6 g/dL 3.5-5. 5 Not Available [facility] [address] [facility] [address], [place], [address], 06/11/2025 13:16:16 06/11/20 25 06/11/2025 CMP (FEMA LE) globulin 3.1 calc Not Available [facility] [address] [facility] [address], [place], [address], 06/11/2025 13:16:16 06/11/2006/11/2025 CMP (FEMA LE) AST (SGOT) 32.0 U/L 0.0-46 .0 Not Available [facility] [address] [facility], [place], [address], 06/11/2025 13:16:16 06/11/20 25 06/11/2025 CMP (FEMA LE) altv (SGPT) 15.0 U/L 13.0-6 9.0 normal Not Available [facility] [address] [facility] [address], [place], [address], 06/11/2025 13:16:16 06/11/20 25 06/11/2025 CMP (FEMA LE) A/G ratio 1.5 ratio Not Available [facility] [address] [facility], [place], [address], 06/11/2025 13:16:16 06/11/20 25 06/11/2025 CMP (FEMA LE) ALP phos 81.0 U/L 30.0-1 40.0 normal Not Available [facility] [address] [facility], [place], [address], 06/11/2025 13:16:16 06/11/2006/11/2025 CMP (FEMA LE) calcium 10.4 mg/dL 8.4-10 .5 Not Available [facility] [address] [facility], [place], [address], 06/11/2025 13:16:16 06/11/2006/11/2025 CMP (FEMA LE) sodium 142.0 mmol/ L 136.0- 145.0 Not Available [facility] [address] [facility], [place], [address], 06/11/2025 13:16:16 06/11/2006/11/2025 CMP (FEMA LE) potassium 4.7 mmol/ L 3.5-5. 1 Not Available [facility] [address] [facility], [place], [address], 06/11/2025 13:16:16 06/11/2006/11/2025 CMP (FEMA LE) chloride 106.0 mmol/ L 98.0-1 10.0 normal Not Available [facility] [address] [facility], [place], [address], 06/11/2025 13:16:16 06/11/2006/11/2025 CMP (FEMA LE) C02 27.0 mmol/ L 22.0-3 1.0 Not Available [facility] [address] [facility], [place], [address], 06/11/2025 13:16:16 06/11/20 25 06/11/2025 CMP (FEMA LE) anion gap 9.0 calc Not Available [facility] [address] [facility], [place], [address], 06/11/2025 13:16:16 06/11/20 25 06/11/2025 CMP (FEMA LE) osmolality 296.7 calc Not Available [facility] [address] [facility], [place], [address], 06/11/2025 13:16:16 06/11/20 25 06/12/2025 PTH, INTAC [...] or Low Joie l High Not Available [facility] [place] [address] [place], [address], 06/12/2025 15:27:52 06/11/2006/12/2025 PTH, INTAC T (ICMA ) AND IONIZ ED CALCI UM calcium 10.1 mg/dL 8.6-10 .4 normal Not Available [facility] [address] [address] [place], [address], 06/12/2025 15:27:52 06/11/2006/12/2025 PTH, INTAC T (ICMA ) AND IONIZ ED CALCI UM calcium, ionized 5.5 mg/dL 4.7-5. 5 normal Not Available [facility] [address] [address] [place], [address], 06/12/2025 15:27:52 06/11/20 25 06/12/2025 VITAM IN [...] /MS is recom gagan d: order code 71518 (vargas ents >2yrs ). See Note 1 Note 1 For addit ional infor surya mclean refer to http: //[facility] emma Riosia gnost ics.c om/fa q/FAQ 199 (This link is being provi ded for infor sarika stroud/ connor smart purpo ses only. ) Not Available Online [facility] [address] [place], [address], 06/12/2025 15:27:54 06/24/20 25 06/24/2025 PT/IN R Protime 40.9 Not Available [facility] ([facility]) [address] [place] [address], [address], 06/24/2025 13:13:54 06/24/20 25 06/24/2025 PT/IN R INR 3.4 Not Available [facility] ([facility]) [address] [place] [address], [address], 06/24/2025 13:13:54 07/02/20 25 07/02/2025 PT/IN R Protime 42.3 Not Available [facility] ([facility]) [address] [place], [address], 07/01/2025 10:25:07 07/02/2007/02/2025 PT/IN R INR 3.5 Not Available [facility] ([facility]) [address] [place], [address], 07/01/2025 10:25:07 08/05/20 25 08/04/2025 XR, cervi luisito spine , 2 or 3 view No observ ation record ed. [facility] [address] [place], [address], 08/07/2025 13:25:55 08/05/2008/04/2025 XR, shoul vito, 2 or more view No observ ation record ed. [facility] [address] [place], [address], 08/07/2025 13:25:55 09/09/20 25 09/08/2025 US, echo ardio gram, trans thora cic, compl ete, w/ color flow No observ ation record ed. [facility] [address] [place], [address], 09/11/2025 09:19:21 09/15/2009/15/2025 MAMMO , scree ilya, digit al, bilat eral No observ ation record ed. [address] [place], [address], 09/16/2025 16:09:54 Result Notes None recorded. Problems Name Problem SNOMED Code Status Onset Date Resolution Date Notes Provider Name and Address Organization Details Recorded Time Depressi ve disorder 28763570 Completed 202010/14/2021 Depressi on - Status is Inactive ; 10/14/20 11:08AM by Maryellen Marmolejo PA-C, Annotati on/Adden dum; Promoted ; acuity set as *; FELISHA hamilton, [facility] 5 07:56:57 Herpes zoster 4030003 Completed 202201/02/2025 SHINGLES FELISHA DESIR null, [facility] 5 07:56:03 Dysthymi a 90777986 Active 2022 DEPRESSI ON WITH ANXIETY FELISHA hamilton, [facility] 5 07:55:28 Benign essentia l hyperten jovanni 6598452 Active 2022 FELISHA hamilton, [facility] 5 07:55:28 Gastroes ophageal reflux disease 264779340 Active 2022 FELISHA hamilton, [facility] 5 07:55:28 Fracture of upper end of humerus 043153623 Completed 202201/02/2025 CLOSED FRACTURE OF PROXIMAL END OF RIGHT HUMERUS, SEQUELA FELISHA hamilton, [facility] 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 5 07:56:22 Atrial fibrilla tion 41196430 Active 2022 FELISHA hamilton, [facility] 3 14:45:05 Coronary atherosc lerosis 814018078 Active 2022 bare metal stents to circ and LAD 2011 FELISHA hamilton, [facility] 3 14:46:30 Iron deficien cy anemia 35705845 Active 2022 FELISHA hamilton [facility] 5 07:55:28 Hypothyr oidism 48116539 Active 2022 FELISHA DESIR null, [facility] 3 14:45:59 Anxiety 86416524 Active 2022 FELISHA DESIR null, [facility] 3 14:46:54 Viral hepatiti s C 79166594 Active 2022 FELISHA DESIR null, [facility] 5 07:55:28 Moderate recurren t major depressi on 46581032 Active 2023 FELISHA DESIR null, [facility] 5 07:55:28 Need for personal care assistan ce [id number] 087498 Active 2023 FELISHA DESIR null, [facility] 5 07:55:28 Frail elderly 415870530 Active 2023 FELISHA DESIR null, [facility] 5 07:55:28 Seasonal allergic rhinitis 927710518 Active 2023 FELISHA DESIR null, [facility] 5 07:55:28 Chronic pain 48544259 Active 2023 FELISHA DESIR null, [facility] 5 07:55:28 Dementia 08690235 Active 2023 FELISHA DESIR null, [facility] 5 07:55:28 Constipa tion 20995191 Active 2023 FELISHA DESIR null, [facility] 5 07:55:44 Hyperlip idemia 94477142 Active 2024 FELISHA DESIR null, [facility], Janelle.CJosue 5 07:59:38 Occult blood detected in feces 85358840 Active 2024 FELISHA DESIR alfonso, [facility], LDemetraCJosue 5 09:13:35 Mean corpuscu lar volume above referenc e range 040741880 Active 2024 FELISHA hamilton [facility] L.LJosueCJosue 5 09:14:07 Hypercal cemia 68437346 Active 2024 FELISHA DESIR alfonso [facility], YovaniCJosue 5 10:07:49 Vitamin D deficien cy 88895940 Active 2024 Lyn Marmolejo MD [address] [place] [address], [phone], [facility], YovaniCJosue 5 12:54:55 Hyperpar athyroid ism 03137691 Active 2024 Lyn Marmolejo MD [address] [place] [address], [phone], [facility], YovaniCJosue 5 12:54:56 Dysuria 09822687 Active 2024 Dotty Celis alfonso [facility], LJosueLJosueCJosue 5 14:08:08 Problem Notes None recorded. Procedures Surgical History Date Name Laterality Status Provider Name and Address Organization Details Recorded Time 2024 Most Recent Mammogram completed FELISHA DESIR [facility], ClariceLJosueCJosue 5 16:09:39 2024 esophagogastroduodenoscopy completed YANELIS DESIR [facility], LJosueLJosueCJosue 5 12:23:16 2024 colonoscopy completed FELISHA DESIR [facility], ClariceLDaisy 5 10:20:11 2023 esophagogastroduodenoscopy completed KIARA WEINERY [facility] 4 12:40:14 2023 colonoscopy completed Lyn Marmolejo MD [address] [place] [address], [phone], [facility] 5 10:19:30 cholecystectomy completed FELISHA DESIR [facility] 3 14:48:40 replacement of mitral valve complete d [facility] 3 14:49:22 section completed [facility] 3 15:14:43 Imaging Results None recorded. Procedure Notes None recorded. Medical Equipment None Reported. Allergies Allergen ID Allergen Name Allergen Category Reaction Reaction Severity Criticality Documentation Date Start Date Code Code System Note Provider Name and Address Organization Details Recorded Time 1376 morphine medicatio n Not available Not available Not available 02/07/2023 7052 RxNorm Dotty Vimal [facility] 3 10:45:47 1377 diltiazem Not available Not available Not available Not available 02/07/2023 3443 RxNorm Dotty Vimal [facility] 3 10:45:54 4552 Bactrim medicatio n other severe high 04/17/2023 81969 9 RxNorm do not give d/t couma din Lola Wadelm [facility] 4 13:34:33 16137 diltiazem hydrochlo ride medicatio n Not available Not available Not available 05/26/2023 1 RxNorm Comme nt: Recor ded 12/29 7:56A M by Yanelis Kitchen on, BARGE CAPTAIN, 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 ; Promo talib; Signi fican ce: *; Reaso n: Drug aller gy; ; FELISHA hamilton, [facility] 3 12:26:44 82001 morphine sulfate medicatio n Not available Not available Not available 05/26/2023 48575 RxNorm Comme nt: Recor ded 12/29 7:56A M by Yanelis Kitchen on, BARGE CAPTAIN, 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 ; Promo talib; Trey [...] 09/25/20 2:38PM by Felisha Desir LPN (Authori zegreg through [...] 06/08 completed 436; Recorded 01/02/20 3:43PM by Fleisha Desir LPN (Authori zed through Lyn Marmolejo MD), Refill Request; Refill Quantity : 30; Tablet; Not Available Not Available Not Available fiber 06/08 completed Not Available Not Available Not Available [facility] Levothyro xine Sodium daily 06/08 completed 61466; Recorded 01/09/20 6:06PM by Shirley Quevedo (Authori [...] use any illicit or recreational drugs? No [email or web address] Information not available 04/17/2023 Do you or have you ever used any other forms of tobacco or nicotine? No [email or web address] Information not available 06/29/2023 What is your level of alcohol consumption? None [email or web address] Information not available 04/17/2023 Mental Status None recorded. Family History Relationship Description Onset Age of this Age Resolved Age Notes LastModified by Organization Details LastModified Time Unspecified Relation Coronary atherosclero sis [email or web address] Not available 06/29 15:13:48 Medical History No [...] or 50 mcg/0.25mL dose 2 [facility] 10/10/2024 08:38:58 Pneumococcal conjugate PCV20, polysaccharide UWK472 conjugate, adjuvant, PF 3 completed FELISHA hamilton [facility] 10/10/2024 08:38:58 COVID-19, mRNA, LNP-S, bivalent, PF, 50 mcg/0.5 mL or 25mcg/0.25 mL dose 3 completed FELISHA hamilton [facility] 10/10/2024 08:38:58 pneumococcal polysaccharide PPV23 3 completed FELISHA hamilton [facility] 04/17/2023 12:02:00 [...] quadrivalent, preservative 3 completed FELISHA DESIR null, [facility] 10/10/2024 08:38:58 pneumococcal polysaccharide PPV23 8 completed Lola hamilton, [facility] 07/02/2024 08:41:52 Influenza, split virus, quadrivalent, PF 8 completed Lola Vidal null, [facility] 07/02/2024 08:41:52 zoster recombinant 3 completed Lola Vidal null, [facility] 07/02/2024 14:52:40 COVID-19, mRNA, LNP-S, PF, 50 mcg/0.5 mL 4 completed FELISHA hamilton, [facility] 10/10/2024 08:38:58 Influenza, MDCK, trivalent, preservative 4 completed FELISHA hamilton, [facility]ue 10/10/2024 08:38:58 Past Encounters Encounter ID Performer Location Encounter Start Date Encounter Closed Date Diagnosis/Indication Diagnosis SNOMED-CT Code Diagnosis ICD10 Code Diagnosis IMO Codes Diagnosis Note [id number] Lyn Marmolejo MD [facility] ([facility] [address] [place] [phone] 06/05/2025 11:28:33 06/08/2025 12:35:39 Hypothyroidism 11522964 E03.9 Viral screening 91805309 4 Z11.59 3915190 Physical examination 588 0005 Z00.00 695254 Long-term current use of drug therapy 614475521 Z79.629 4121629 [id number] Lyn Marmolejo MD [facility] ([facility]) [address] [place] [phone] 06/11/2025 10:52:49 06/12/2025 12:43:36 Hypercalcemia 22374949 E83.52 [id number] Lyn Marmolejo MD [facility] ([facility]) [address] [place] [phone] 06/24/2025 12:18:01 06/30/2025 13:41:59 Hyperparathyroidism 39669953 E21.3 25056 corrected and ionized calcium are normalgfr 52 and stable Vitamin D deficiency 347 39577 E55.9 64266 [id number] Lyn Marmolejo MD [facility] ([facility]) [address] [place] [phone] 07/01/2025 10:24:23 07/02/2025 11:29:38 Atrial fibrillation 28959433 I48.91 warfarin therapy Health Concerns Section Related Observation LastModified by Organization Detai ls LastModified Time None Recorded Concern Status LastModified by Organization Details LastModified Time None Recorded Payers Encounter Date Sequence Insurance Name Policy Number Policy Hernandez Covered Member ID Hernandez Member ID Guarantor Name 07/01/2025 1 [id number]ANT[place] - PPO) [id number] Odilia Ulloa [id number] Odilia Ulloa 07/01/2025 2 [place] Odilia Ulloa [id number] Odilia Ulloa OBGyn Episode No OBEpisode recorded.
--- OUTSIDE RECORDS SUMMARY | 2025-09-25 08:28 | XMS_ITS | Encounter Summary ---
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 Social History Tobacco Use Types Packs/Day Years Used Date Smoking Tobacco: Never Assessed Comments Unknown Sex and Gender Information Value Date Recorded Sex Assigned at Not on file 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 Gender Identity Not on file Sexual Orientation Not on file documented as of this encounter Plan of Treatment Not on file documented as of this encounter Visit Diagnoses Diagnosis Other and unspecified hyperlipidemia- Primary Other nonspecific finding on examination of urine Personal history of other disorder of urinary system 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
--- OUTSIDE RECORDS SUMMARY | 2025-09-25 08:28 | XMS_ITS | Encounter Summary ---
Author Organization 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
--- OUTSIDE RECORDS SUMMARY | 2025-09-25 08:28 | XMS_ITS | Encounter Summary ---
Author Organization [facility] Address [address] [place] [address] Care Team Providers Care Manager Strategy & Account Name Role Phone Rico Muñiz MD, Sharan Jaime Primary Care Provider Encounter Details Date Type Department Care Team (Latest Contact Info) Description 06/18/1998 Outpatient Historical [facility] Int Luis AFaisal Lpoez [place] [address] [place] [id number] Serge Arrington MD [address] [place] [address] Mitral valve disorder (Primary Dx); Unspecified essential hypertension; Hematuria; Routine medical exam Social History Tobacco Use Types Packs/Day Years Used Date Smoking Tobacco: Never Assessed Comments Unknown Sex and Gender Information Value Date Recorded Sex Assigned at Not on file 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
--- OUTSIDE RECORDS SUMMARY | 2025-09-25 08:28 | XMS_ITS | Continuity of Care Document ---
Author Organization DAI Haas [facility] Luis M, Ke[place], [facility] ([facility]) Address [address] [place] [address] Care Team Providers Care Director Digital Advertising Name Role Phone LYN MARMOLEJO Primary Care Provider Assessment No assessment recorded. Plan of Treatment Reminders Order Date Submit Date Provider Last Modified By Organization Details Last Modified Time Details Appointments USP VISIT 2024 08:50A M Lyn Marmolejo MD Not available Not available Not available [facility] [address] [place], [address], 07/16/2025 12:57:11 Referral None recorded . Procedures None recorded . Surgeries None recorded . Imaging None recorded . Medication Orders None recorded . Patient TargetsNo targets recorded. Patient InstructionsNo instructions recorded. Reason for Referral None Reported. Results Created Date Observation Date Name Description Value Unit Range Abnormal Flag Note LastModifiedBy Organization Detail LastModifiedTime 06/24/2006/24/2025 PT/IN R Protime 40.9 Not Available [facility] ([facility]) [address] [place], [address], 06/24/2025 13:13:54 06/24/2006/24/2025 PT/IN R INR 3.4 Not Available [facility] ([facility]) [address] [place], [address], 06/24/2025 13:13:54 07/02/20 25 07/02/2025 PT/IN R Protime 42.3 Not Available [facility] ([facility]) [address] [place], [address], 07/01/2025 10:25:07 07/02/20 25 07/02/2025 PT/IN R INR 3.5 Not Available [facility] ([facility]) [address] [place], [address], 07/01/2025 10:25:07 07/06/20 25 07/06/2025 PT/IN R Protime 39.5 Not Available [facility] [address] [place], [address], 07/06/2025 11:23:26 07/06/20 25 07/06/2025 PT/IN R INR 3.3 Not Available [facility] ([facility]) [address] [place], [address], 07/06/2025 11:23:26 07/09/20 25 07/09/2025 PT/IN R Protime 34.6 Not Available [facility] ([facility]) [address] [place], [address], 07/09/2025 13:44:17 07/09/20 25 07/09/2025 PT/IN R INR 2.9 Not Available [facility] ([facility]) [address] [place], [address], 07/09/2025 13:44:17 07/14/20 25 07/14/2025 URINA LYSIS WITH MICRO color YELLOW Not Available [facility] [address], [address], 07/14/2025 14:52:32 07/14/20 25 07/14/2025 URINA LYSIS WITH MICRO clarity CLEAR Not Available [facility] [address], [place], [address], 07/14/2025 14:52:32 07/14/20 25 07/14/2025 URINA LYSIS WITH MICRO glu NEGATI VE Not Available [facility] [address], [place], [address], 07/14/2025 14:52:32 07/14/20 25 07/14/2025 URINA LYSIS WITH MICRO bili NEGATI VE Not Available [facility] [address], [place], [address], 07/14/2025 14:52:32 07/14/20 25 07/14/2025 URINA LYSIS WITH MICRO ket NEGATI VE Not Available [facility] [address], [place], [address], 07/14/2025 14:52:32 07/14/20 25 07/14/2025 URINA LYSIS WITH MICRO S.g 1.010 1.005- 1.025 Not Available [facility] [address], [place], [address], 07/14/2025 14:52:32 07/14/2007/14/2025 URINA LYSIS WITH MICRO pH 5.0 5.0-7. 0 Not Available [facility] [address], [place], [address], 07/14/2025 14:52:32 07/14/20 25 07/14/2025 URINA LYSIS WITH MICRO pro NEGATI VE Not Available [facility] [address], [place], [address], 07/14/2025 14:52:32 07/14/2007/14/2025 URINA LYSIS WITH MICRO uro 0.2 E.U./D L Not Available [facility] [address], [place], [address], 07/14/2025 14:52:32 07/14/20 25 07/14/2025 URINA LYSIS WITH MICRO nit NEGATI VE Not Available [facility] [address] [facility] [address], [place], [address], 07/14/2025 14:52:32 07/14/20 25 07/14/2025 URINA LYSIS WITH MICRO blo NEGATI VE Not Available [facility] [address] [facility] [address], [place], [address], 07/14/2025 14:52:32 07/14/20 25 07/14/2025 URINA LYSIS WITH MICRO jose elias NEGATI VE Not Available [facility] [address] [facility] [address], [place], [address], 07/14/2025 14:52:32 07/14/2007/14/2025 URINA LYSIS WITH MICRO WBC 0-1 abnormal Not Available [facility] [address] [facility] [address], [place], [address], 07/14/2025 14:52:32 07/14/20 25 07/14/2025 URINA LYSIS WITH MICRO RBC NEGATI VE Not Available [facility] [address] [facility] [address], [place], [address], 07/14/2025 14:52:32 07/14/2007/14/2025 URINA LYSIS WITH MICRO epi cells 1-2 abnormal Not Available [facility] [address] [facility] [address], [place], [address], 07/14/2025 14:52:32 07/14/20 25 07/14/2025 URINA LYSIS WITH MICRO bacteria 1-2 HYALIN E CAST abnormal Not Available [facility] [address] [facility] [address], [place], [address], 07/14/2025 14:52:32 07/14/20 25 07/14/2025 URINA LYSIS WITH MICRO other NEG Not Available [facility] [address] [facility] [address], [place], [address], 07/14/2025 14:52:32 07/14/20 25 07/16/2025 CULTU RE, URINE , ROUTI NE culture, urine, routine SEE NOTE CULTU RE, URINE , ROUTI NE Micro Numbe r: [id number] Test Statu s: Final Speci men Sourc e: Urine Speci men Quali ty: Adequ ate Resul t: No Growt h Not Available [place] [address] [place], [address], 07/16/2025 02:51:13 07/17/20 25 07/17/2025 PT/IN R Protime 34.4 Not Available [facility] ([facility]) [address] [place], [address], 07/16/2025 12:07:15 07/17/20 25 07/17/2025 PT/IN R INR 2.9 Not Available [facility] ([facility]) [address] [place], [address], 07/16/2025 12:07:15 08/05/20 25 08/04/2025 XR, cervi luisito spine , 2 or 3 view No observ ation record ed. [facility] [address] [place], [address], 08/07/2025 13:25:55 08/05/20 25 08/04/2025 XR, shoul vito, 2 or more view No observ ation record ed. [facility] [address] [place], [address], 08/07/2025 13:25:55 09/09/2009/08/2025 US, echoc ardio gram, trans thora cic, compl ete, w/ color flow No observ ation record ed. [facility] [address], [place], [address], 09/11/2025 09:19:21 09/15/2009/15/2025 MAMMO , scree ilya, digit al, bilat eral No observ ation record ed. [email or web address] [place] [address] [address] [facility], [place], [address], 09/16/2025 16:09:54 Result Notes None recorded. Problems Name Problem SNOMED Code Status Onset Date Resolution Date Notes Provider Name and Address Organization Details Recorded Time Depressi ve disorder 51467242 Completed 202010/14/2021 Depressi on - Status is Inactive ; 10/14/20 11:08AM by Maryellen Marmolejo PA-C, Annotati on/Adden dum; Promoted ; acuity set as *; FELISHA hamilton [facility] 5 07:56:57 Herpes zoster 5198701 Completed 202201/02/2025 SHINGLES FELISHA hamilton, [facility] 5 07:56:03 Dysthymi a 95373985 Active 2022 DEPRESSI ON WITH ANXIETY FELISHA hamilton [facility] 5 07:55:28 Benign essentia l hyperten jovanni 0019170 Active 2022 FELISHA hamilton, [facility] 5 07:55:28 Gastroes ophageal reflux disease 089512736 Active 2022 FELISHA hamilton [facility] 5 07:55:28 Fracture of upper end of humerus 867091772 Completed 202201/02/2025 CLOSED FRACTURE OF PROXIMAL END OF RIGHT HUMERUS, SEQUELA FELISHA hamilton, [facility] 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 3 14:45:05 Coronary atherosc lerosis 243787042 Active 2022 bare metal stents to circ and LAD 2011 FELISHA hamilton, [facility] 3 14:46:30 Iron deficien cy anemia 80715094 Active 2022 FELISHA hamilton, [facility] 5 07:55:28 Hypothyr oidism 84670509 Active 2022 FELISHA hamilton, [facility] 3 14:45:59 Anxiety 91985905 Active 2022 FELISHA hamilton, [facility] 3 14:46:54 Viral hepatiti s C 76076816 Active 2022 FELISHA hamilton, [facility] 5 07:55:28 Moderate recurren t major depressi on 18995647 Active 2023 FELISHA hamilton, [facility] 5 07:55:28 Need for personal care assistan ce 53046656488 325364 Active 2023 FELISHA hamilton [facility] 5 07:55:28 Frail elderly 810227780 Active 2023 FELISHA DESIR null, [facility] 5 07:55:28 Seasonal allergic rhinitis 734287066 Active 2023 FELISHA DESIR null, [facility] 5 07:55:28 Chronic pain 81948247 Active 2023 FELISHA DESIR null, [facility] 5 07:55:28 Dementia 23964676 Active 2023 FELISHA DESIR null, [facility] 5 07:55:28 Constipa tion 39889090 Active 2023 FELISHA DESIR alfonso, [facility] 5 07:55:44 Hyperlip idemia 30027802 Active 2024 FELISHA DESIR null, [facility] 5 07:59:38 Occult blood detected in feces 23110389 Active 2024 FELISHA DESIR null, [facility] 5 09:13:35 Mean corpuscu lar volume above referenc e range 823087486 Active 2024 FELISHA DESIR null, [facility] 5 09:14:07 Hypercal cemia 44804947 Active 2024 FELISHA hamilton, [facility] 5 10:07:49 Vitamin D deficien cy 21182301 Active 2024 Lyn Marmolejo MD [address] [place] [address], [address], [facility] 5 12:54:55 Hyperpar athyroid ism 16794414 Active 2024 Lyn Marmolejo MD [address] [place], [address], [facility], [facility] 5 12:54:56 Dysuria 14873387 Active 2024 Dotty Celis null, [facility] 5 14:08:08 Problem Notes None recorded. Procedures Surgical History Date Name Laterality Status Provider Name and Address Organization Details Recorded Time 2024 Most Recent [facility] 5 16:09:39 2024 esophagogastroduodenoscopy completed YANELIS WELSH [facility], L[facility]CJosue 5 12:23:16 2024 colonoscopy completed [facility], [facility] 5 10:20:11 2023 esophagogastroduodenoscopy completed KIARA DUCKWORTH [facility] 4 12:40:14 2023 colonoscopy completed Lyn Marmolejo MD [address] [place], [address], [facility], L[facility] 5 10:19:30 cholecystectomy completed [facility] 3 14:48:40 replacement of mitral valve complete d FELISHA [facility], LJosueLJosueCJosue 3 14:49:22 section completed [facility], L.LJosueCJosue 3 15:14:43 Imaging Results None recorded. Procedure Notes None recorded. Medical Equipment None Reported. Allergies Allergen ID Allergen Name Allergen Category Reaction Reaction Severity Criticality Documentation Date Start Date Code Code System Note Provider Name and Address Organization Details Recorded Time 1376 morphine medicatio n Not available Not available Not available 02/07/2023 7052 RxNorm [facility] 10:45:47 1377 diltiazem Not available Not available Not available Not available 02/07/2023 3443 RxNorm Dotty Celis [facility], L[facility] 3 10:45:54 4552 Bactrim medicatio n other severe high 04/17/2023 27695 9 RxNorm do not give d/t couma din Lola Marcy [facility] 4 13:34:33 21204 diltiazem hydrochlo ride medicatio n Not available Not available Not available 05/26/202303622 1 RxNorm Comme nt: Recor ded 12/29 7:56A M by Yanelis Kitchen on, SOUND PERSON, 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 ; Promo talib; Signi fican ce: *; Reaso n: Drug aller gy; ; [facility] 3 12:26:44 09856 morphine sulfate medicatio n Not available Not available Not available 05/26/2023 16720 RxNorm Comme nt: Recor ded 12/29 7:56A M by Yanelis Kitchen on, SOUND PERSON, 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 ; Promo talib; Signi [...] THSC Levothyro xine Sodium daily 06/08 completed 98869; Recorded 01/09/20 6:06PM by Shirley Quevedo (Authori [...] Tobacco Smoking Status Former Smoker FELISHA hamilton [facility] 04/17/2023 14:48:01 What Was The Date Of Your Most Recent Tobacco Screening? 05/27/2025 [email or web address] Information not available 05/27/2025 Sex: Unknown Functional Status Question Answer Note LastModified by Organizat ion Details LastModified Time Do you use any illicit or recreational drugs? No [email or web address] Information not available 04/17/2023 Do you or have you ever used any other forms of tobacco or nicotine? No [email or web address] Information not available 06/29/2023 What is your level of alcohol consumption? None [email or web address] Information not available 04/17/2023 Mental Status None recorded. Family History Relationship Description Onset Age of this Age Resolved Age Notes LastModified by Organization Details LastModified Time Unspecified Relation Coronary atherosclero sis [email or web address] Not available 06/29 15:13:48 Medical History No medical history recorded. Gynecological History Statement/Question Response Most Recent Mammogram 09/15/2025 Obstetrics History GPAL:G 0 P 0 0 0 0 Immunizations Vaccine Type Date Status Note Provider Nam e and Address Organization Details Recorded Time Influenza, MDCK, quadrivalent, PF 2 completed FELISHA hamilton [facility] 10/10/2024 08:38:58 COVID-19, mRNA, LNP-S, PF, 100 mcg/0.5mL dose or 50 mcg/0.25mL dose 1 completed FELISHA hamilton [facility] 10/10/2024 08:38:58 COVID-19, mRNA, LNP-S, PF, 100 mcg/0.5mL dose or 50 mcg/0.25mL dose 1 completed FELISHA hamilton [facility] 10/10/2024 08:38:58 COVID-19, mRNA, LNP-S, PF, 100 mcg/0.5mL dose or 50 mcg/0.25mL dose 2 completed FELISHAJAMIE DESIR [facility], [facility] 10/10/2024 08:38:58 Pneumococcal conjugate PCV20, polysaccharide UEC383 conjugate, adjuvant, PF 3 completed FELISHA DESIR [facility], [facility] 10/10/2024 08:38:58 COVID-19, mRNA, LNP-S, bivalent, PF, 50 mcg/0.5 mL or 25mcg/0.25 mL dose 3 completed FELISHA hamilton, [facility] 10/10/2024 08:38:58 pneumococcal polysaccharide PPV23 3 completed FELISHA DESIR [facility], [facility] 04/17/2023 12:02:00 Tdap 1 completed FELISHA DESIR [facility], [facility] 10/10/2024 08:38:58 Influenza, split virus, trivalent, PF 3 completed FELISHAJAMIE DESIR [facility] 04/17/2023 12:02:00 influenza, split (incl. purified surface antigen) 0 completed FELISHA DESIR [facility], [facility] 04/17/2023 12:02:00 Hep A, adult 1 completed FELISHA DESIR [facility], [facility] 10/10/2024 08:38:58 Hep A, adult 9 completed FELISHAJAMIE DESIR [facility] 10/10/2024 08:38:58 Influenza, split virus, quadrivalent, PF 1 completed FELISHA DESIR null, [facility] 10/10/2024 08:38:58 Influenza, split virus, quadrivalent, PF 9 completed FELISHA DESIR null, [facility] 10/10/2024 08:38:58 Influenza, MDCK, trivalent, PF 4 completed FELISHA DESIR null, [facility] 10/10/2024 08:38:58 Influenza, MDCK, quadrivalent, preservative 3 completed FELISHA DESIR null, [facility] 10/10/2024 08:38:58 pneumococcal polysaccharide PPV23 8 completed Lola hamilton, [facility] 07/02/2024 08:41:52 Influenza, split virus, quadrivalent, PF 8 completed Lola Vidal null, [facility] 07/02/2024 08:41:52 zoster recombinant 3 completed Lola hamilton, [facility] 07/02/2024 14:52:40 COVID-19, mRNA, LNP-S, PF, 50 mcg/0.5 mL 4 completed FELISHA hamilton, [facility] 10/10/2024 08:38:58 Influenza, MDCK, trivalent, preservative 4 completed FELISHA DESIR null, [facility] 10/10/2024 08:38:58 Past Encounters Encounter ID Performer Location Encounter Start Date Encounter Closed Date Diagnosis/Indication Diagnosis SNOMED-CT Code Diagnosis ICD10 Code Diagnosis IMO Codes Diagnosis Note [id number] Lyn Marmolejo MD [facility] ([facility]) [address] [place] [address] 06/24/2025 12:18:01 06/30/2025 13:41:59 Hyperparathyroidism 52357012 E21.3 83343 corrected and ionized calcium are normalgfr 52 and stable Vitamin D deficiency 347 74508 E55.9 17501 [id number] Lyn Marmolejo MD [facility] ([facility]) [address] [place] [address] 07/01/2025 10:24:23 07/02/2025 11:29:38 Atrial fibrillation 21646651 I48.91 warfarin therapy [id number] Lyn Marmolejo MD [facility] ([facility]) [address] [place] [address] 07/03/2025 08:14:55 07/13/2025 10:06:37 Benign essential hypertension 3595779 I10 Coronary atherosclerosis 552721270 I25.119 Atrial fibrillation 4943 6004 I48.91 warfarin therapyd/c naproxen d/t hx of bleeding Hyperlipidemia 61379547 E78.00 Hypothyroidism 02395746 E03.9 Hyperparathyroidism 6699 9008 E21.3 15677 [id number] Lyn Marmolejo MD [facility] ([facility]) [address] [place] [phone] 5 07/06/2025 11:22:40 07/07/2025 09:33:46 History of mechanical prosthetic mitral valve replacement 462188384 Z95.2 [id number] Lyn Marmolejo MD [facility] ([facility]) [address] [place] [address] 5 07/09/2025 13:42:58 07/10/2025 14:24:59 Atrial fibrillation 84805846 I48.91 warfarin therapyd/c naproxen d/t hx of bleeding [id number] Lyn Marmolejo MD [facility] ([facility]) [address] [place] [phone] 5 07/14/2025 13:52:08 07/15/2025 10:22:44 Dysuria 23344628 R30.0 10529 will call with ua results [id number] Lyn Marmolejo MD [facility] ([facility]) [address] [place] [address] 5 07/16/2025 12:05:46 07/17/2025 11:01:38 Atrial fibrillation 72862205 I48.91 warfarin therapyd/c naproxen d/t hx of bleeding Health Concerns Section Related Observation LastModified by Organization Detai ls LastModified Time None Recorded Concern Status LastModified by Organization Details LastModified Time None Recorded Payers Encounter Date Sequence Insurance Name Policy Number Policy Hernandez Covered Member ID Hernandez Member ID Guarantor Name 07/16/2025 1 [place]ANT[place] - PPO) [id number] Odilia Ulloa [id number] Odilia Ulloa 07/16/2025 2 [place] Odilia Ulloa [id number] Odilia Ulloa OBGyn Episode No OBEpisode recorded.
--- OUTSIDE RECORDS SUMMARY | 2025-09-25 08:28 | XMS_ITS | Encounter Summary ---
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 Social History Tobacco Use Types Packs/Day Years Used Date Smoking Tobacco: Never Assessed Comments Unknown Sex and Gender Information Value Date Recorded Sex Assigned at Not on file 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
--- OUTSIDE RECORDS SUMMARY | 2025-09-25 08:28 | XMS_ITS | Encounter Summary ---
Author Organization [facility] Address [address] [place] [address] Care Team Providers Care Reconstructive Surgeon Name Role Phone Rico Muñiz MD, Sharan Jaime Primary Care Provider Encounter Details Date Type Department Care Team (Latest Contact Info) Description 08/16/2000 Outpatient Historical [facility] Sharan Gómez Jr., MD [address] [place] [address] Pure hypercholesterolem (Primary Dx); Unspecified essential hypertension; Encounter for long-term (current) use of other medications Social History Tobacco Use Types Packs/Day Years Used Date Smoking Tobacco: Never Assessed Comments Unknown Sex and Gender Information Value Date Recorded Sex Assigned at Not on file 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
--- OUTSIDE RECORDS SUMMARY | 2025-09-25 08:28 | XMS_ITS | Encounter Summary ---
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
--- OUTSIDE RECORDS SUMMARY | 2025-09-25 08:28 | XMS_ITS | Encounter Summary ---
Author Organization [facility] Address [address] [place] [address] Care Team Providers Care Sash Finisher Name Role Phone Rico Muñiz MD, Sharan Jaime Primary Care Provider Encounter Details Date Type Department Care Team (Latest Contact Info) Description 12/21/2000 Outpatient Historical [facility] Sharan Gómez Jr., MD [address] [place] [address] Pure hypercholesterolem (Primary Dx); Other and unspecified hyperlipidemia; Esophageal reflux; senior care (current) use of anticoagulants Social History Tobacco Use Types Packs/Day Years Used Date Smoking Tobacco: Never Assessed Comments Unknown Sex and Gender Information Value Date Recorded Sex Assigned at Not on file Legal 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 Gender Identity Not on file Sexual Orientation Not on file documented as of this encounter Plan of Treatment Not on file documented as of this encounter Visit Diagnoses Diagnosis Pure hypercholesterolem- Primary Pure hypercholesterolemia Other and unspecified hyperlipidemia Esophageal reflux senior care (current) use of anticoagulants Long-term (current) use of anticoagulants documented in this encounter Care Teams Sash Finisher Relationship Specialty Start Date End Date Sharan Gómez Jr., MD [address] [place] [phone] PCP - General 08/10/05 documented as of this encounter
--- OUTSIDE RECORDS SUMMARY | 2025-09-25 08:28 | XMS_ITS | Encounter Summary ---
Author Organization [facility] Address [address] [place] [address] Care Team Providers Care Cupola Liner Helper Name Role Phone Rico Muñiz MD, Sharan Jaime Primary Care Provider Encounter Details Date Type Department Care Team (Latest Contact Info) Description 07/18/1999 Outpatient Historical [facility] Sharan Gómez Jr., MD [address] [place] [address] Skin sensation disturb (Primary Dx); Headache(784.0); [facility] (current) use of anticoagulants Social History Tobacco Use Types Packs/Day Years Used Date Smoking Tobacco: Never Assessed Comments Unknown Sex and Gender Information Value Date Recorded Sex Assigned at Not on file Legal 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
--- OUTSIDE RECORDS SUMMARY | 2025-09-25 08:28 | XMS_ITS | Encounter Summary ---
Author Organization [facility] Address [address] [place] [address] Care Team Providers Care Public Relations Intern Name Role Phone Rico Muñiz MD, Sharan Jaime Primary Care Provider Encounter Details Date Type Department Care Team (Latest Contact Info) Description 11/09/2000 Outpatient Historical [facility] Sharan Gómez Jr., MD [address] [place] [address] Unspecified essential hypertension (Primary Dx); Pure hypercholesterolem; Endocarditis, valve unspecified, unspecified cause; shale planer operator helper (current) use of anticoagulants Social History Tobacco Use Types Packs/Day Years Used Date Smoking Tobacco: Never Assessed Comments Unknown Sex and Gender Information Value Date Recorded Sex Assigned at Not on file Legal 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 Gender Identity Not on file Sexual Orientation Not on file documented as of this encounter Plan of Treatment Not on file documented as of this encounter Visit Diagnoses Diagnosis Unspecified essential hypertension- Primary Pure hypercholesterolem Pure hypercholesterolemia Endocarditis, valve unspecified, unspecified cause shale planer operator helper (current) use of anticoagulants Long-term (current) use of anticoagulants documented in this encounter Care Teams Public Relations Intern Relationship Specialty Start Date End Date Sharan Gómez Jr., MD [address] [place] [phone] PCP - General 08/10/05 documented as of this encounter
--- OUTSIDE RECORDS SUMMARY | 2025-09-25 08:28 | XMS_ITS | Encounter Summary ---
Author Organization [facility] Address [address] [place] [address] Care Team Providers Care Film Tests Checker Name Role Phone Rico Muñiz MD, Sharan Jaime Primary Care Provider Encounter Details Date Type Department Care Team (Latest Contact Info) Description 12/31/2000 Outpatient Historical [facility] [place] [address] 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
--- OUTSIDE RECORDS SUMMARY | 2025-09-25 08:28 | XMS_ITS | Continuity of Care Document ---
Author Organization [facility], [facility]) Address [address] [place] [address] Care Team Providers Care Office Assistant Receptionist Name Role Phone LYN MARMOLEJO Primary Care Provider Assessment No assessment recorded. Plan of Treatment Reminders Order Date Submit Date Provider Last Modified By Organization Details Last Modified Time Details Appointments ASSISTED VISIT 2024 08:50A M Lyn Marmolejo MD Not available Not available Not available Lab urinalysi s, complete [address] [facility], [address] [place] [address], [address], 07/14/2025 15:25:12 culture, urine 2024 025 [facility], [address] [place] [address] 248, [facility] [address] [place], [address], 07/16/2025 02:51:13 Referral None recorded. Procedures None recorded. Surgeries None recorded. Imaging None recorded. Medication Orders None recorded. Patient TargetsNo targets recorded. Patient InstructionsNo instructions recorded. Reason for Referral None Reported. Results Created Date Observation Date Name Description Value Unit Range Abnormal Flag Note LastModifiedBy Organization Detail LastModifiedTime 06/24/2006/24/2025 PT/IN R Protime 40.9 Not Available [facility] ([facility]) [address] [place], [address], 06/24/2025 13:13:54 06/24/20 25 06/24/2025 PT/IN R INR 3.4 Not Available [facility] ([facility]) [address] [place], [address], 06/24/2025 13:13:54 07/02/20 25 07/02/2025 PT/IN R Protime 42.3 Not Available [facility] ([facility]) [address] [place], [address], 07/01/2025 10:25:07 07/02/20 25 07/02/2025 PT/IN R INR 3.5 Not Available [facility] ([facility]) [address] [place], [address], 07/01/2025 10:25:07 07/06/20 25 07/06/2025 PT/IN R Protime 39.5 Not Available [facility] ([facility]) [address] [place], [address], 07/06/2025 11:23:26 07/06/20 25 07/06/2025 PT/IN R INR 3.3 Not Available [facility] ([facility]) [address] [place], [address], 07/06/2025 11:23:26 07/09/20 25 07/09/2025 PT/IN R Protime 34.6 Not Available [facility] ([facility]) [address] [place], [address], 07/09/2025 13:44:17 07/09/20 25 07/09/2025 PT/IN R INR 2.9 Not Available [facility] ([facility]) [address] [place], [address], 07/09/2025 13:44:17 07/14/20 25 07/14/2025 URINA LYSIS WITH MICRO color YELLOW Not Available [facility] [address], [place], [address], 07/14/2025 14:52:32 07/14/20 25 07/14/2025 URINA LYSIS WITH MICRO clarity CLEAR Not Available [facility] [address], [place], [address], 07/14/2025 14:52:32 07/14/20 25 07/14/2025 URINA LYSIS WITH MICRO glu NEGATI VE Not Available [facility] [address], [place], [address], 07/14/2025 14:52:32 07/14/20 25 07/14/2025 URINA LYSIS WITH MICRO bili NEGATI VE Not Available [facility] [address], [place], [address], 07/14/2025 14:52:32 07/14/20 25 07/14/2025 URINA LYSIS WITH MICRO ket NEGATI VE Not Available [facility] [address], [place], [address], 07/14/2025 14:52:32 07/14/2007/14/2025 URINA LYSIS WITH MICRO S.g 1.010 1.005- 1.025 Not Available [facility] [address], [place], [address], 07/14/2025 14:52:32 07/14/2007/14/2025 URINA LYSIS WITH MICRO pH 5.0 5.0-7. 0 Not Available [facility] [address], [place], [address], 07/14/2025 14:52:32 09/07/14/2025 URINA LYSIS WITH MICRO pro NEGATI VE Not Available [facility] [address], [place], [address], 07/14/2025 14:52:32 07/14/20 25 07/14/2025 URINA LYSIS WITH MICRO uro 0.2 E.U./D L Not Available [facility] [address], [place], [address], 07/14/2025 14:52:32 07/14/20 25 07/14/2025 URINA LYSIS WITH MICRO nit NEGATI VE Not Available [facility] [address], [place], [address], 07/14/2025 14:52:32 07/14/20 25 07/14/2025 URINA LYSIS WITH MICRO blo NEGATI VE Not Available [facility] [address], [place], [address], 07/14/2025 14:52:32 07/14/2007/14/2025 URINA LYSIS WITH MICRO jose elias NEGATI VE Not Available [facility] [address] [facility] [address], [place], [address], 07/14/2025 14:52:32 07/14/2007/14/2025 URINA LYSIS WITH MICRO WBC 0-1 abnormal Not Available [facility] [address] [facility] [address], [place], [address], 07/14/2025 14:52:32 07/14/2007/14/2025 URINA LYSIS WITH MICRO RBC NEGATI VE Not Available [facility] [address], [place], [address], 07/14/2025 14:52:32 09/16/20 25 07/14/2025 URINA LYSIS WITH MICRO epi cells 1-2 abnormal Not Available [facility] [address] [facility] [address], [place], [address], 07/14/2025 14:52:32 07/14/20 25 07/14/2025 URINA LYSIS WITH MICRO bacteria 1-2 HYALIN E CAST abnormal Not Available [facility] [address] [facility] [address], [place], [address], 07/14/2025 14:52:32 07/14/20 25 07/14/2025 URINA LYSIS WITH MICRO other NEG Not Available [facility] [address] [facility] [address], [place], [address], 07/14/2025 14:52:32 07/14/20 25 07/16/2025 CULTU RE, URINE , ROUTI NE culture, urine, routine SEE NOTE CULTU RE, URINE , ROUTI NE Micro Numbe r: [id number] Test Statu s: Final Speci men Sourc e: Urine Speci men Quali ty: Adequ ate Resul t: No Growt h Not Available [facility] [address] [place], [address], 07/16/2025 02:51:13 08/05/20 25 08/04/2025 XR, cervi luisito spine , 2 or 3 view No observ ation record ed. [facility] [address] [place], [address], 08/07/2025 13:25:55 08/05/20 25 08/04/2025 XR, shoul vito, 2 or more view No observ ation record ed. [facility] [address] [place], [address], 08/07/2025 13:25:55 09/09/20 25 09/08/2025 US, echoc ardio gram, trans thora cic, compl ete, w/ color flow No observ ation record ed. [address] [place], [address], 09/11/2025 09:19:21 09/15/20 25 09/15/2025 MAMMO , scree ilya, digit al, bilat eral No observ ation record ed. jordy [facility] [address] [place], [address], 09/16/2025 16:09:54 Result Notes None recorded. Problems Name Problem SNOMED Code Status Onset Date Resolution Date Notes Provider Name and Address Organization Details Recorded Time Depressi ve disorder 15551842 Completed 202010/14/2021 Depressi on - Status is Inactive ; 10/14/20 11:08AM by Maryellen Marmolejo PA-C, Annotati on/Adden dum; Promoted ; acuity set as *; FELISHA hamilton [facility] 5 07:56:57 Herpes zoster 7695064 Completed 202201/02/2025 SHINGLES FELISHA hamilton [facility] 5 07:56:03 Dysthymi a 64238789 Active 2022 DEPRESSI ON WITH ANXIETY FELISHA hamilton [facility] 5 07:55:28 Benign essentia l hyperten jovanni 6231065 Active 2022 FELISHA hamilton, [facility] 5 07:55:28 Gastroes ophageal reflux disease 589015889 Active 2022 FELISHA hamilton [facility] 5 07:55:28 Fracture of upper end of humerus 144458324 Completed 202201/02/2025 CLOSED FRACTURE OF PROXIMAL END OF RIGHT HUMERUS, SEQUELA FELISHA hamilton, [facility] 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 5 07:56:22 Atrial fibrilla tion 65899138 Active 2022 FELISHA hamilton, [facility] 3 14:45:05 Coronary atherosc lerosis 816737983 Active 2022 bare metal stents to circ and LAD 2011 FELISHA hamilton, [facility] 3 14:46:30 Iron deficien cy anemia 11717862 Active 2022 FELISHA hamilton, [facility] 5 07:55:28 Hypothyr oidism 12181768 Active 2022 FELISHA hamilton, [facility] 3 14:45:59 Anxiety 06817237 Active 2022 FELISHA hamilton, [facility] 3 14:46:54 Viral hepatiti s C 43832780 Active 2022 FELISHA hamilton, [facility] 5 07:55:28 Moderate recurren t major depressi on 19737429 Active 2023 FELISHA hamilton, [facility] 5 07:55:28 Need for personal care assistan ce 93000367335 256318 Active 2023 FELISHA hamilton, [facility] 5 07:55:28 Frail elderly 969604408 Active 2023 FELISHA hamilton, [facility] 5 07:55:28 Seasonal allergic rhinitis 212623885 Active 2023 FELISHA KARLEE alfonso, [facility] 5 07:55:28 Chronic pain 58525797 Active 2023 FELISHA KARLEE null, [facility] 5 07:55:28 Dementia 18824629 Active 2023 FELISHA KARLEE alfonso, [facility] 5 07:55:28 Constipa tion 08297337 Active 2023 FELISHAJAMIE DESIR null, [facility] 5 07:55:44 Hyperlip idemia 96111308 Active 2024 FELISHA DESIR alfonso, [facility] 5 07:59:38 Occult blood detected in feces 79152222 Active 2024 FELISHA DESIR alfonso, [facility] 5 09:13:35 Mean corpuscu lar volume above referenc e range 069104445 Active 2024 FELISHA DESIR alfonso, [facility] 5 09:14:07 Hypercal cemia 91748515 Active 2024 FELISHA DESIR alfonso, [facility] 5 10:07:49 Vitamin D deficien cy 62282578 Active 2024 Lyn Marmolejo MD [address] [place] [address], [address], [facility] 5 12:54:55 Hyperpar athyroid ism 07283441 Active 2024 Lyn Marmolejo MD [address] [place] [address], [address], [facility] 5 12:54:56 Dysuria 83752493 Active 2024 Dotty Sharmacarlene hamilton [facility] [place] 5 14:08:08 Problem Notes None recorded. Procedures Surgical History Date Name Laterality Status Provider Name and Address Organization Details Recorded Time 2024 Most Recent Mammogram completed FELISHA [facility], ClariceLDaisy 5 16:09:39 2024 esophagogastroduodenoscopy completed YANELIS ANITHA [facility] 5 12:23:16 2024 colonoscopy completed [facility], ClariceLJosueCJosue 5 10:20:11 2023 esophagogastroduodenoscopy completed KIARA DUCKWORTH [facility] LJosueL.CJosue 4 12:40:14 2023 colonoscopy completed Lyn Marmolejo MD [address] [place] [address], [address], [facility], LJosueLJosueCJosue 5 10:19:30 cholecystectomy completed [facility], L.L[facility] 3 14:48:40 replacement of mitral valve complete d [facility], L.L[facility]ue 3 14:49:22 section completed [facility], [facility] 3 15:14:43 Imaging Results None recorded. Procedure Notes None recorded. Medical Equipment None Reported. Allergies Allergen ID Allergen Name Allergen Category Reaction Reaction Severity Criticality Documentation Date Start Date Code Code System Note Provider Name and Address Organization Details Recorded Time 1376 morphine medicatio n Not available Not available Not available 02/07/2023 7052 RxNorm Dotty Sharmacarlene hamilton [facility], ClariceLDaisy 3 10:45:47 1377 diltiazem Not available Not available Not available Not available 02/07/2023 3443 RxNorm [facility] 3 10:45:54 4552 Bactrim medicatio n other severe high 04/17/2023 00925 9 RxNorm do not give d/t couma din [facility] 4 13:34:33 43642 diltiazem hydrochlo ride medicatio n Not available Not available Not available 05/26/2023 1 RxNorm Comme nt: Recor ded 12/29 7:56A M by Yanelis Kitchen on, 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, 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 ; Promo talib; Signi fican ce: *; Reaso n: Drug aller gy; ; [facility] 3 12:26:44 04940 morphine sulfate medicatio n Not available Not available Not available 05/26/2023 61510 RxNorm Comme nt: Recor ded 12/29 7:56A M by Yanelis Kitchen on, 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 5 14:07:05 Social History Question Answer Notes LastModified by [employer] Details LastModified Time Tobacco Smoking Status Former Smoker FELISHA hamilton [facility] 04/17/2023 14:48:01 What Was The Date Of Your Most Recent Tobacco Screening? 05/27/2025 [email or web address] Information not available 05/27/2025 Sex: Unknown Functional Status Question Answer Note LastModified by [employer] Details LastModified Time Do you use any illicit or recreational drugs? No [email or web address] Information not available 04/17/2023 Do you or have you ever used any other forms of tobacco or nicotine? No [email or web address] Information not available 06/29/2023 What is your level of alcohol consumption? None [email or web address] Information not available 04/17/2023 Mental Status None recorded. Family History Relationship Description Onset Age of this Age Resolved Age Notes LastModified by Organization Details LastModified Time Unspecified Relation Coronary atherosclero sis [email or web address] Not available 06/29 15:13:48 Medical History No medical history recorded. Gynecological History Statement/Question Response Most Recent Mammogram 09/15/2025 Obstetrics History GPAL:G 0 P 0 0 0 0 Immunizations Vaccine Type Date Status Note Provider Nam e and Address Organization Details Recorded Time Influenza, MDCK, quadrivalent, PF 2 completed FELISHA hamilton [facility] 10/10/2024 08:38:58 COVID-19, mRNA, LNP-S, PF, 100 mcg/0.5mL dose or 50 mcg/0.25mL dose 1 completed FELISHA hamilton [facility] 10/10/2024 08:38:58 COVID-19, mRNA, LNP-S, PF, 100 mcg/0.5mL dose or 50 mcg/0.25mL dose 1 completed FELISHA hamilton, [facility] 10/10/2024 08:38:58 COVID-19, mRNA, LNP-S, PF, 100 mcg/0.5mL dose or 50 mcg/0.25mL dose 2 completed FELISHA hamilton, [facility] 10/10/2024 08:38:58 Pneumococcal conjugate PCV20, polysaccharide [id number] conjugate, adjuvant, PF 3 completed FELISHA hamilton, [facility] 10/10/2024 08:38:58 COVID-19, mRNA, LNP-S, bivalent, PF, 50 mcg/0.5 mL or 25mcg/0.25 mL dose 3 completed FELISHA hamilton, [facility] 10/10/2024 08:38:58 pneumococcal polysaccharide PPV23 3 completed FELISHA hamilton, [facility] 04/17/2023 12:02:00 Tdap 1 completed FELISHA hamilton, [facility] 10/10/2024 08:38:58 Influenza, split virus, trivalent, PF 3 completed FELISHA hamilton, [facility] 04/17/2023 12:02:00 influenza, split (incl. purified surface antigen) 0 completed FELISHA hamilton, [facility] 04/17/2023 12:02:00 Hep A, adult 1 completed FELISHA hamilton, [facility] 10/10/2024 08:38:58 Hep A, adult 9 completed FELISHA hamilton, [facility] 10/10/2024 08:38:58 Influenza, split virus, quadrivalent, PF 1 completed FELISHA DESIR null, [facility] 10/10/2024 08:38:58 Influenza, split virus, quadrivalent, PF 9 completed FELISHA DESIR null, [facility] 10/10/2024 08:38:58 Influenza, MDCK, trivalent, PF 4 completed FELISHA DESIR null, [facility] 10/10/2024 08:38:58 Influenza, MDCK, quadrivalent, preservative 3 completed FELISHA DESIR null, [facility] 10/10/2024 08:38:58 pneumococcal polysaccharide PPV23 8 completed Lola Vidal null, [facility] 07/02/2024 08:41:52 Influenza, split virus, quadrivalent, PF 8 completed Lola Vidal null, [facility] 07/02/2024 08:41:52 zoster recombinant 3 completed Lola Vidal null, [facility] 07/02/2024 14:52:40 COVID-19, mRNA, LNP-S, PF, 50 mcg/0.5 mL 4 completed FELISHA DESIR null, [facility] 10/10/2024 08:38:58 Influenza, MDCK, trivalent, preservative 4 completed FELISHA DESIR null, [facility] 10/10/2024 08:38:58 Past Encounters Encounter ID Performer Location Encounter Start Date Encounter Closed Date Diagnosis/Indication Diagnosis SNOMED-CT Code Diagnosis ICD10 Code Diagnosis IMO Codes Diagnosis Note [id number] Lyn Marmolejo MD [facility] ([facility]) [address] [place] [address] 06/24/2025 12:18:01 06/30/2025 13:41:59 Hyperparathyroidism 91202847 E21.3 20106 corrected and ionized calcium are normalgfr 52 and stable Vitamin D deficiency 347 84590 E55.9 85374 [id number] Lyn Marmolejo MD [facility] ([facility]) [address] [place] [address] 07/01/2025 10:24:23 07/02/2025 11:29:38 Atrial fibrillation 72122113 I48.91 warfarin therapy [id number] Lyn Marmolejo MD [facility] ([facility]) [address] [place] [address] 07/03/2025 08:14:55 07/13/2025 10:06:37 Benign essential hypertension 7328733 I10 Coronary atherosclerosis 588244987 I25.119 Atrial fibrillation 4943 6004 I48.91 warfarin therapyd/c naproxen d/t hx of bleeding Hyperlipidemia 22561326 E78.00 Hypothyroidism 81137770 E03.9 Hyperparathyroidism 6699 9008 E21.3 19329 [id number] Lyn Marmolejo MD [facility] ([facility]) [address] [place] [phone] 5 07/06/2025 11:22:40 07/07/2025 09:33:46 History of mechanical prosthetic mitral valve replacement 580076189 Z95.2 [id number] Lyn Marmolejo MD [facility] ([facility]) [address] [place] [address] 5 07/09/2025 13:42:58 07/10/2025 14:24:59 Atrial fibrillation 10669708 I48.91 warfarin therapyd/c naproxen d/t hx of bleeding [id number] Lyn Marmolejo MD [facility] ([facility]) [address] [place] [phone] 5 07/14/2025 13:52:08 07/15/2025 10:22:44 Dysuria 93306132 R30.0 [id number] will call with ua results Health Concerns Section Related Observation LastModified by Organization Detai ls LastModified Time None Recorded Concern Status LastModified by Organization Details LastModified Time None Recorded Payers Encounter Date Sequence Insurance Name Policy Number Policy Hernandez Covered Member ID Hernandez Member ID Guarantor Name 07/14/2025 1 [place]ANT[place] - PPO) [id number] Odilia Ulloa [id number] Odilia Ulloa 07/14/2025 2 [place] Odilia Ulloa [id number] Odilia Ulloa Notes Date Note Type Note [...] noted in the HPI Lyn Marmolejo MD [address] [place] [address], [phone], [facility], LJosueLDaisy 07/14/2025 14:37:48 OBGyn Episode No OBEpisode recorded.
--- OUTSIDE RECORDS SUMMARY | 2025-09-25 08:28 | XMS_ITS | Encounter Summary ---
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
--- OUTSIDE RECORDS SUMMARY | 2025-09-25 08:28 | XMS_ITS | Encounter Summary ---
Author Organization [facility] Address [address] [place] [address] Care Team Providers Care Street Light Servicer Helper Name Role Phone Rico Muñiz MD, Sharan Jaime Primary Care Provider Encounter Details Date Type Department Care Team (Late st Contact Info) Description 06/21/2000 Outpatient Historical [facility] Serge Arrington MD [address] [facility] [address] [place] [phone] Unspecified essential hypertension (Primary Dx); Mitral valve disorder; [facility] (current) use of anticoagulants Social History Tobacco Use Types Packs/Day Years Used Date Smoking Tobacco: Never Assessed Comments Unknown Sex and Gender Information Value Date Recorded Sex Assigned at Not on file Legal Sex Female 5:42 AM 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 Gender Identity Not on file Sexual Orientation Not on file documented as of this encounter Plan of Treatment Not on file documented as of this encounter Visit Diagnoses Diagnosis Unspecified essential hypertension- Primary Mitral valve disorder Mitral valve disorders intermediate project manager (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
--- OUTSIDE RECORDS SUMMARY | 2025-09-25 08:29 | XMS_ITS | Encounter Summary ---
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 Social History Tobacco Use Types Packs/Day Years Used Date Smoking Tobacco: Never Assessed Comments Unknown Sex and Gender Information Value Date Recorded Sex Assigned at Not on file Legal Sex Female 5:42 AM WIRE SAWYER Gender Identity Not on file Sexual Orientation Not on file documented as of this encounter Plan of Treatment Not on file documented as of this encounter Visit Diagnoses Diagnosis Obesity, unspecified- Primary Heart valve replaced by other means Unspecified essential hypertension long-term (current) use of anticoagulants Long-term (current) use of anticoagulants documented in this encounter Care Teams Fabric Separator Operator Relationship Specialty Start Date End Date Sharan Gómez Jr., MD [address] [place] [phone] PCP - General 08/10/05 documented as of this encounter
--- OUTSIDE RECORDS SUMMARY | 2025-09-25 08:29 | XMS_ITS | Encounter Summary ---
Author Organization [facility] Address [address] [place] [address] Care Team Providers Care Ux Design Manager Name Role Phone Rico Muñiz MD, Sharan Jaime Primary Care Provider Encounter Details Date Type Department Care Team (Latest Contact Info) Description 04/06/2000 Outpatient Historical [facility] Sharan Gómez Jr., MD [address] [place] [address] Symptomatic menopausal or female climacteric states (Primary Dx); Endocarditis, valve unspecified, unspecified cause; FPC (current) use of anticoagulants Social History Tobacco Use Types Packs/Day Years Used Date Smoking Tobacco: Never Assessed Comments Unknown Sex and Gender Information Value Date Recorded Sex Assigned at Not on file Legal Sex Female 5:42 AM INSTRUMENTATION SUPERVISOR Gender Identity Not on file Sexual Orientation Not on file documented as of this encounter Plan of Treatment Not on file documented as of this encounter Visit Diagnoses Diagnosis Symptomatic menopausal or female climacteric states- Primary Endocarditis, valve unspecified, unspecified cause FPC (current) use of anticoagulants Long-term (current) use of anticoagulants documented in this encounter Care Teams Ux Design Manager Relationship Specialty Start Date End Date Sharan Gómez Jr., MD [address] [place] [phone] PCP - General 08/10/05 documented as of this encounter
--- OUTSIDE RECORDS SUMMARY | 2025-09-25 08:29 | XMS_ITS | Encounter Summary ---
Author Organization [facility] Address [address] [place] [address] Care Team Providers Care Marketing Manager Name Role Phone Rico Muñiz MD, Sharan Jaime Primary Care Provider Encounter Details Date Type Department Care Team (Latest Contact Info) Description 05/18/1999 Outpatient Historical [facility] Sharan Gómez Jr., MD [address] [place] [address] Osteoarthrosis, unspecified whether generalized or localized, unspecified site (Primary Dx); jail (current) use of anticoagulants; Heart valve replaced by other means Social History Tobacco Use Types Packs/Day Years Used Date Smoking Tobacco: Never Assessed Comments Unknown Sex and Gender Information Value Date Recorded Sex Assigned at Not on file Legal Sex Female 5:42 AM MILANESE KNITTING 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 Gender Identity Not on file Sexual Orientation Not on file documented as of this encounter Plan of Treatment Not on file documented as of this encounter Visit Diagnoses Diagnosis Osteoarthrosis, unspecified whether generalized or localized, unspecified site- Primary long term care administrator (current) use of anticoagulants Long-term (current) use of anticoagulants Heart valve replaced by other means documented in this encounter Care Teams Marketing Manager Relationship Specialty Start Date End Date Sharan Gómez Jr., MD [address] [place] [address] PCP - General 08/10/05 documented as of this encounter
--- OUTSIDE RECORDS SUMMARY | 2025-09-25 08:29 | XMS_ITS | Encounter Summary ---
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 Social History Tobacco Use Types Packs/Day Years Used Date Smoking Tobacco: Never Assessed Comments Unknown Sex and Gender Information Value Date Recorded Sex Assigned at Not on file Legal Sex Female 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
--- OUTSIDE RECORDS SUMMARY | 2025-09-25 08:29 | XMS_ITS | Encounter Summary ---
Author Organization [facility] Address [address] [place] [address] Care Team Providers Care Electrical Tester Battery Name Role Phone Rico Muñiz MD, Sharan Jaime Primary Care Provider Encounter Details Date Type Department Care Team (Latest Contact Info) Description 06/21/2000 Outpatient Historical [facility] [address] [place] [address] Serge Arrington MD [address] [place] [address] Mitral valve disorder (Primary Dx); Unspecified essential hypertension; Unspecified gastritis and gastroduodenitis without mention of hemorrhage Social History Tobacco Use Types Packs/Day Years Used Date Smoking Tobacco: Never Assessed Comments Unknown Sex and Gender Information Value Date Recorded Sex Assigned at Not on file Legal Sex Female 5:42 AM TAPE CONTROLLED MACHINE STITCHER Gender Identity Not on file Sexual Orientation Not on file documented as of this encounter Plan of Treatment Not on file documented as of this encounter Visit Diagnoses Diagnosis Mitral valve disorder- Primary Mitral valve disorders Unspecified essential hypertension Unspecified gastritis and gastroduodenitis without mention of hemorrhage documented in this encounter Care Teams Electrical Tester Battery Relationship Specialty Start Date End Date Sharan Gómez Jr., MD [address] [place] [address] PCP - General 08/10/05 documented as of this encounter
--- OUTSIDE RECORDS SUMMARY | 2025-09-25 08:29 | XMS_ITS | Encounter Summary ---
Author Organization [facility] Address [address] [facility] Attn: [place] [address] Care Team Providers Care Type Rolling Machine Operator Name Role Phone Rico Muñiz MD, Sharan Jaime Primary Care Provider Encounter Details Date Type Department Care Team (Late st Contact Info) Description 12/26/1999 Outpatient Historical Sharan Gómez Jr., MD [address] [place] [address] Social History Tobacco Use Types Packs/Day Years Used Date Smoking Tobacco: Never Assessed Comments Unknown Sex and Gender Information Value Date Recorded Sex Assigned at Not on file Legal Sex Female 5:42 AM FOUNDRY MANAGER Gender Identity Not on file Sexual Orientation Not on file documented as of this encounter Plan of Treatment Not on file documented as of this encounter Visit Diagnoses Not on filedocumented in this encounter Care Teams Type Rolling Machine Operator Relationship Specialty Start Date End Date Sharan Gómez Jr., MD [address] [place] [address] PCP - General 08/10/05 documented as of this encounter
--- OUTSIDE RECORDS SUMMARY | 2025-09-25 08:29 | XMS_ITS | Encounter Summary ---
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 Social History Tobacco Use Types Packs/Day Years Used Date Smoking Tobacco: Never Assessed Comments Unknown Sex and Gender Information Value Date Recorded Sex Assigned at Not on file Legal Sex Female 5:42 AM LEGAL ASSOCIATE Gender Identity Not on file Sexual Orientation Not on file documented as of this encounter Plan of Treatment Not on file documented as of this encounter Visit Diagnoses Diagnosis Pure hypercholesterolem- Primary Pure hypercholesterolemia Heart valve replaced by other means Osteoporosis, unspecified half-way (current) use of anticoagulants Long-term (current) use of anticoagulants documented in this encounter Care Teams Parts Room Associate Relationship Specialty Start Date End Date Sharan Gómez Jr., MD [address] [place] [phone] PCP - General 08/10/05 documented as of this encounter
--- OUTSIDE RECORDS SUMMARY | 2025-09-25 08:29 | XMS_ITS | Encounter Summary ---
Author Organization [facility] Address [address] [place] [address] Care Team Providers Care Casting Room Helper Name Role Phone Rico Muñiz MD, Sharan Jaime Primary Care Provider Encounter Details Date Type Department Care Team (Latest Contact Info) Description 06/20/1999 Outpatient Historical [facility] Echocardiography - National [address] [place] [address] X358 Serge Arrington MD [address] [address] Painful respiration (Primary Dx); Precordial pain; Other dyspnea and respiratory abnormality Social History Tobacco Use Types Packs/Day Years Used Date Smoking Tobacco: Never Assessed Comments Unknown Sex and Gender Information Value Date Recorded Sex Assigned at Not on file Legal Sex Female 5:42 AM CERTIFIED MEDICAL BILLER Gender Identity Not on file Sexual Orientation Not on file documented as of this encounter Plan of Treatment Not on file documented as of this encounter Visit Diagnoses Diagnosis Painful respiration- Primary Precordial pain Other dyspnea and respiratory abnormality documented in this encounter Care Teams Casting Room Helper Relationship Specialty Start Date End Date Sharan Gómez Jr., MD [address] [place] [address] PCP - General 08/10/05 documented as of this encounter
--- OUTSIDE RECORDS SUMMARY | 2025-09-25 08:29 | XMS_ITS | Encounter Summary ---
Author Organization [facility] Address [address] [place] [address] Care Team Providers Care Wood Pile Driver Operator Name Role Phone Rico Muñiz MD, Sharan Jaime Primary Care Provider Encounter Details Date Type Department Care Team (Latest Contact Info) Description 04/18/1999 Outpatient Historical [facility] Sharan Gómez Jr., MD [address] [place] [address] Headache(784.0) (Primary Dx); Unspecified essential hypertension; intermediate manager (current) use of anticoagulants Social History Tobacco Use Types Packs/Day Years Used Date Smoking Tobacco: Never Assessed Comments Unknown Sex and Gender Information Value Date Recorded Sex Assigned at Not on file Legal Sex Female 5:42 AM MEDICARE NURSE Gender Identity Not on file Sexual Orientation Not on file documented as of this encounter Plan of Treatment Not on file documented as of this encounter Visit Diagnoses Diagnosis Headache(784.0)- Primary Headache Unspecified essential hypertension senior living (current) use of anticoagulants Long-term (current) use of anticoagulants documented in this encounter Care Teams Wood Pile Driver Operator Relationship Specialty Start Date End Date Sharan Gómez Jr., MD [address] [place] [address] PCP - General 08/10/05 documented as of this encounter
--- OUTSIDE RECORDS SUMMARY | 2025-09-25 08:29 | XMS_ITS | Encounter Summary ---
Author Organization [facility] Address [address] Attn: [place] [address] Care Team Providers Care Technical Director Name Role Phone Rico Muñiz MD, Sharan Jaime Primary Care Provider Encounter Details Date Type Department Care Team (Late st Contact Info) Description 05/24/2000 Outpatient Historical Sharan Gómez Jr., MD [address] [place] [address] Social History Tobacco Use Types Packs/Day Years Used Date Smoking Tobacco: Never Assessed Comments Unknown Sex and Gender Information Value Date Recorded Sex Assigned at Not on file Legal Sex Female 5:42 AM ACCESSIBILITY LIFT 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
--- OUTSIDE RECORDS SUMMARY | 2025-09-25 08:29 | XMS_ITS | Encounter Summary ---
Author Organization [facility] Address [address] [place] [address] Care Team Providers Care Cosmetic Sales Consultant Name Role Phone Rico Muñiz MD, Sharan Jaime Primary Care Provider Encounter Details Date Type Department Care Team (Latest Contact Info) Description 12/26/1999 Outpatient Historical 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 Gender Identity Not on file Sexual Orientation Not on file documented as of this encounter Plan of Treatment Not on file documented as of this encounter Visit Diagnoses Diagnosis ASCVD- Primary Unspecified cardiovascular disease Esophageal reflux Unspecified essential hypertension terminal superintendent (current) use of anticoagulants Long-term (current) use of anticoagulants documented in this encounter Care Teams Cosmetic Sales Consultant Relationship Specialty Start Date End Date Sharan Gómez Jr., MD [address] [place] [address] PCP - General 08/10/05 documented as of this encounter
--- OUTSIDE RECORDS SUMMARY | 2025-09-25 08:29 | XMS_ITS | Encounter Summary ---
Author Organization [facility] Address [address] [place] [address] Care Team Providers Care Enterprise Resource Planner Name Role Phone Rico Muñiz MD, Sharan Jaime Primary Care Provider Encounter Details Date Type Department Care Team (Latest Contact Info) Description 08/10/2005 Outpatient Historical [facility] [place] [address] [place] [address] Bill Negron MD [address] [place] [address] INT HEMORRHOID W/O COMPL (Primary Dx) Social History Tobacco Use Types Packs/Day Years Used Date Smoking Tobacco: Never Assessed Comments Unknown Sex and Gender Information Value Date Recorded Sex Assigned at Not on file Legal Sex Female 5:42 AM LINUX SUPPORT ENGINEER Gender Identity Not on file Sexual [...] Primary documented in this encounter Care Teams Enterprise Resource Planner Relationship Specialty Start Date End Date Sharan Gómez Jr., MD [address] [place] [address] PCP - General 08/10/05 documented as of this encounter
--- OUTSIDE RECORDS SUMMARY | 2025-09-25 08:29 | XMS_ITS | Encounter Summary ---
Author Organization [facility] Address [address] [place] [address] Care Team Providers Care Welt Rander Name Role Phone Rico Muñiz MD, Sharan Jaime Primary Care Provider Encounter Details Date Type Department Care Team (Late st Contact Info) Description 10/18/2020 Lab Requisition [facility] Laboratory Services [address] [place] [address] Tabatha Lynn, [facility] [address] [place] [address] Social History Tobacco Use Types Packs/Day Years Used Date Smoking Tobacco: Never Assessed Comments Unknown Sex and Gender Information Value Date Recorded Sex Assigned at Not on file Legal Sex Female 5:42 AM JUNIOR AUTOMATION ENGINEER Gender Identity Not on file Sexual Orientation Not on file documented as of this encounter Plan of Treatment Not on file documented as of this encounter Procedures Procedure Name Priority Date/Time Associated Diagnosis Comments PROTIME-INR Routine 10/18/2020 6:34 AM JUNIOR AUTOMATION ENGINEER documented in this encounter Results * (ABNORMAL) PROTIME-INR (10/18/2020 6:34 AM JUNIOR AUTOMATION ENGINEER) PROTIME 34.1(H) 11.9 - 15.5 Seconds 10/18/2020 5:19 PM JUNIOR AUTOMATION ENGINEER [facility] INR 3.2(H) 0.8 - 1.2 10/18/2020 5:19 PM JUNIOR AUTOMATION ENGINEER [facility] Blood Collection / Unknown 10/18/2020 6:34 AM JUNIOR AUTOMATION ENGINEER 10/18/2020 4:57 PM JUNIOR AUTOMATION ENGINEER Narrative [facility] - 10/18/2020 5:19 PM JUNIOR AUTOMATION ENGINEER Expected Values for INR: DVT/PE Goal INR [...] pharmacy Aspen Mitchell, Pharm D. Tabatha Neff THERMAL ENGINEER HEMATOLOGY ORDERABLES Final Result [facility] [address] [place] [address] documented in this encounter Visit Diagnoses Not on filedocumented in this encounter Care Teams Welt Rander Relationship Specialty Start Date End Date Sharan Gómez Jr., MD [address] [place] [address] PCP - General 08/10/05 documented as of this encounter
--- OUTSIDE RECORDS SUMMARY | 2025-09-25 08:29 | XMS_ITS | Encounter Summary ---
Author Organization [facility] Address [address] [place] [address] Care Team Providers Care Bookbinder Apprentice Name Role Phone Rico Muñiz MD, Sharan Jaime Primary Care Provider Encounter Details Date Type Department Care Team (Latest Contact Info) Description 10/26/1999 Outpatient Historical [facility] Sharan Gómez Jr., MD [address] [place] [address] Endocarditis, valve unspecified, unspecified cause (Primary Dx); Osteoporosis, unspecified Social History Tobacco Use Types Packs/Day Years Used Date Smoking Tobacco: Never Assessed Comments Unknown Sex and Gender Information Value Date Recorded Sex Assigned at Not on file Legal Sex Female 5:42 AM BOILERMAKER LOFTSMAN Gender Identity Not on file Sexual Orientation Not on file documented as of this encounter Plan of Treatment Not on file documented as of this encounter Visit Diagnoses Diagnosis Endocarditis, valve unspecified, unspecified cause- Primary Osteoporosis, unspecified documented in this encounter Care Teams Bookbinder Apprentice Relationship Specialty Start Date End Date Sharan Gómez Jr., MD [address] [place] [address] PCP - General 08/10/05 documented as of this encounter
--- OUTSIDE RECORDS SUMMARY | 2025-09-25 08:29 | XMS_ITS | Encounter Summary ---
Author Organization [facility] Address [address] [place] [address] Care Team Providers Care Setter Off Name Role Phone Rico Muñiz MD, Sharan Jaime Primary Care Provider Encounter Details Date Type Department Care Team (Late st Contact Info) Description 07/26/1999 Outpatient Historical [facility] Cardiology- [place] [address] [place] [phone] [place] [address] [facility] [place] [address] Pain in limb (Primary Dx); Heart valve replaced by other means Social History Tobacco Use Types Packs/Day Years Used Date Smoking Tobacco: Never Assessed Comments Unknown Sex and Gender Information Value Date Recorded Sex Assigned at Not on file Legal Sex Female 5:42 AM FUNERAL PRE ARRANGEMENT SPECIALIST Gender Identity Not on file Sexual Orientation Not on file documented as of this encounter Plan of Treatment Not on file documented as of this encounter Visit Diagnoses Diagnosis Pain in limb- Primary Pain in soft tissues of limb Heart valve replaced by other means documented in this encounter Care Teams Setter Off Relationship Specialty Start Date End Date Sharan Gómez Jr., MD [address] [place] [address] PCP - General 08/10/05 documented as of this encounter
--- OUTSIDE RECORDS SUMMARY | 2025-09-25 08:29 | XMS_ITS | Encounter Summary ---
Author Organization [facility] Address [address] [place] [address] Care Team Providers Care Acoustical Tile Carpenters Supervisor Name Role Phone Rico Muñiz MD, Sharan Jaime Primary Care Provider Encounter Details Date Type Department Care Team (Late st Contact Info) Description 2020 Lab Requisition [facility] Laboratory Services [address] [place] [address] Tabatha Lynn, [facility] [address] [place] [address] Social History Tobacco Use Types Packs/Day Years Used Date Smoking Tobacco: Never Assessed Comments Unknown Sex and Gender Information Value Date Recorded Sex Assigned at Not on file Legal Sex Female 5:42 AM NEWS CAMERA PERSON Gender Identity Not on file Sexual Orientation Not on file documented as of this encounter Plan of Treatment Not on file documented as of this encounter Procedures Procedure Name Priority Date/Time Associated Diagnosis Comments PROTIME-INR Routine 2020 6:14 AM NEWS CAMERA PERSON documented in this encounter Results * (ABNORMAL) PROTIME-INR (2020 6:14 AM NEWS CAMERA PERSON) PROTIME 23.0(H) 11.9 - 15.5 Seconds 2020 7:28 PM NEWS CAMERA PERSON [facility] INR 2.0(H) 0.8 - 1.2 2020 7:28 PM NEWS CAMERA PERSON [facility] PLTech [facility] Blood Collection / Unknown 2020 6:14 AM NEWS CAMERA PERSON 2020 7:05 PM NEWS CAMERA PERSON Narrative [facility] - 2020 7:28 PM NEWS CAMERA PERSON Expected Values for INR: DVT/PE Goal INR [...] pharmacy Aspen Mitchell, Pharm D. Tabatha Neff PLANOGRAPH OPERATOR HEMATOLOGY ORDERABLES Final Result Performing Organization Address City/State/RUST Co de Phone Number [facility] [address] [place] [address] documented in this encounter Visit Diagnoses Not on filedocumented in this encounter Care Teams Acoustical Tile Carpenters Supervisor Relationship Specialty Start Date End Date Sharan Gómez Jr., MD [address] [place] [address] PCP - General 08/10/05 documented as of this encounter
--- OUTSIDE RECORDS SUMMARY | 2025-09-25 08:29 | XMS_ITS | Encounter Summary ---
Author Organization [facility] Address [address] [place] [address] Care Team Providers Care Substance Abuse Prevention Coordinator Name Role Phone Rico Muñiz MD, Sharan Jaime Primary Care Provider Encounter Details Date Type Department Care Team (Latest Contact Info) Description 10/10/1999 Outpatient Historical [facility] Sharan Gómez Jr., MD [address] [place] [address] Unspecified circulatory system disorder (Primary Dx); Unspecified essential hypertension; FPC (current) use of anticoagulants Social History Tobacco Use Types Packs/Day Years Used Date Smoking Tobacco: Never Assessed Comments Unknown Sex and Gender Information Value Date Recorded Sex Assigned at Not on file Legal Sex Female 5:42 AM MINI BAR ATTENDANT Gender Identity Not on file Sexual Orientation Not on file documented as of this encounter Plan of Treatment Not on file documented as of this encounter Visit Diagnoses Diagnosis Unspecified circulatory system disorder- Primary Unspecified essential hypertension terminal system operator (current) use of anticoagulants Long-term (current) use of anticoagulants documented in this encounter Care Teams Substance Abuse Prevention Coordinator Relationship Specialty Start Date End Date Sharan Gómez Jr., MD [address] [place] [address] PCP - General 08/10/05 documented as of this encounter
--- OUTSIDE RECORDS SUMMARY | 2025-09-25 08:29 | XMS_ITS | Encounter Summary ---
Author Organization [facility] Address [address] [place] [address] Care Team Providers Care Hoisting Engine Operator Name Role Phone Rico Muñiz MD, Sharan Jaime Primary Care Provider Encounter Details Date Type Department Care Team (Late st Contact Info) Description 10/16/2020 Lab Requisition [facility] General Laboratory Services [place] [address] [place] [phone] Mtnv, External Provider [address] [facility] [address] [place] [address] Social History Tobacco Use Types Packs/Day Years Used Date Smoking Tobacco: Never Assessed Comments Unknown Sex and Gender Information Value Date Recorded Sex Assigned at Not on file Legal Sex Female 5: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 Gender Identity Not on file Sexual Orientation Not on file documented as of this encounter Plan of Treatment Not on file documented as of this encounter Procedures Procedure Name Priority Date/Time Associated Diagnosis Comments PROTIME-INR Routine 10/16/2020 10:20 AM METAL SPRAYING 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 documented in this encounter Results * (ABNORMAL) PROTIME-INR (10/16/2020 10:20 AM METAL SPRAYING 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) PROTIME 42.0(H) 12.0 - 14.4 Seconds 10/16/2020 12:05 PM METAL SPRAYING 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 [facility] INR 4.7(H) 0.8 - 1.2 10/16/2020 12:05 PM METAL SPRAYING 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 [facility] Blood 10/16/2020 10:2 0 AM METAL SPRAYING 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 10/16/2020 11:47 AM METAL SPRAYING 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 us External Provider Mtnv HEMATOLOGY ORDERABLES Fin al Result [facility] CLIA # [id number] [address] [place] [address] documented in this encounter Visit Diagnoses Not on filedocumented in this encounter Care Teams Hoisting Engine Operator Relationship Specialty Start Date End Date Sharan Gómez Jr., MD [address] [place] [address] PCP - General 08/10/05 documented as of this encounter
--- OUTSIDE RECORDS SUMMARY | 2025-09-25 08:29 | XMS_ITS | Encounter Summary ---
Author Organization [facility] Address [address] [place] [address] Care Team Providers Care C Python Developer Name Role Phone Rico Muñiz MD, Sharan Jaime Primary Care Provider Encounter Details Date Type Department Care Team (Latest Contact Info) Description 06/20/1999 Outpatient Historical [facility] Imaging Services-Faisal [place] [address] [place] [address] Serge Arrington MD [address] [place] [address] Cough (Primary Dx) Social History Tobacco Use Types Packs/Day Years Used Date Smoking Tobacco: Never Assessed Comments Unknown Sex and Gender Information Value Date Recorded Sex Assigned at Not on file Legal Sex Female 5:42 AM CHILD AND FAMILY SERVICES WORKER Gender Identity Not on file Sexual Orientation Not on file documented as of this encounter Plan of Treatment Not on file documented as of this encounter Visit Diagnoses Diagnosis Cough- Primary documented in this encounter Care Teams C Python Developer Relationship Specialty Start Date End Date Sharan Gómez Jr., MD [address] [place] [address] PCP - General 08/10/05 documented as of this encounter
--- OUTSIDE RECORDS SUMMARY | 2025-09-25 08:29 | XMS_ITS | Encounter Summary ---
Author Organization [facility] Address [address] [place] [address] Care Team Providers Care Information Technology Director Name Role Phone Rico Muñiz MD, Sharan Jaime Primary Care Provider Encounter Details Date Type Department Care Team (Latest Contact Info) Description 05/24/2000 Outpatient Historical [facility] Sharan Gómez Jr., MD [address] [place] [address] Unspecified essential hypertension (Primary Dx); Osteoporosis, unspecified Social History Tobacco Use Types Packs/Day Years Used Date Smoking Tobacco: Never Assessed Comments Unknown Sex and Gender Information Value Date Recorded Sex Assigned at Not on file Legal Sex Female 5:42 AM FINGER BUFF SEWER Gender Identity Not on file Sexual Orientation Not on file documented as of this encounter Plan of Treatment Not on file documented as of this encounter Visit Diagnoses Diagnosis Unspecified essential hypertension- Primary Osteoporosis, unspecified documented in this encounter Care Teams Information Technology Director Relationship Specialty Start Date End Date Sharan Gómez Jr., MD [address] [place] [address] PCP - General 08/10/05 documented as of this encounter
--- OUTSIDE RECORDS SUMMARY | 2025-09-25 08:29 | XMS_ITS | Encounter Summary ---
Author Organization [facility] Address [address] [place] [address] Care Team Providers Care Superintendent Sanitation Name Role Phone Rico Muñiz MD, Sharan Jaime Primary Care Provider Encounter Details Date Type Department Care Team (Late st Contact Info) Description 10/25/2020 Lab Requisition [facility] Laboratory Services [address] [place] [address] Paulina Peterson MD [address] [place] [address] Social History Tobacco Use Types Packs/Day Years Used Date Smoking Tobacco: Never Assessed Comments Unknown Sex and Gender Information Value Date Recorded Sex Assigned at Not on file Legal Sex Female 5:42 AM LIBRARY TECHNICAL ASSISTANT Gender Identity Not on file Sexual Orientation Not on file documented as of this encounter Plan of Treatment Not on file documented as of this encounter Procedures Procedure Name Priority Date/Time Associated Diagnosis Comments PROTIME-INR Routine 10/25/2020 5:18 AM LIBRARY TECHNICAL ASSISTANT documented in this encounter Results * (ABNORMAL) PROTIME-INR (10/25/2020 5:18 AM LIBRARY TECHNICAL ASSISTANT) PROTIME 34.3(H) 11.9 - 15.5 Seconds 10/25/2020 7:01 PM LIBRARY TECHNICAL ASSISTANT [facility] INR 3.3(H) 0.8 - 1.2 10/25/2020 7:01 PM LIBRARY TECHNICAL ASSISTANT [facility] Blood Collection / Unknown 10/25/2020 5:18 AM LIBRARY TECHNICAL ASSISTANT 10/25/2020 6:44 PM LIBRARY TECHNICAL ASSISTANT Narrative [facility] - 10/25/2020 7:01 PM LIBRARY TECHNICAL ASSISTANT Expected Values for INR: DVT/PE Goal INR 2.5; range 2.0 - 3.0 Valve Replacement Tissue Goal INR 2.5; range 2.0 - 3.0 Valve Replacement Mechanical Goal INR 3.0; range 2.5 - 3.5 POST-TN Goal INR 2.5; range 2.0 - 3.0 or Goal INR 3.0; range 2.5 - 3.5 Atrial Fibrillation Goal INR 2.5; range 2.0 - 3.0 Ischemic Stroke Goal INR 2.5; range 2.0 - 3.0 For additional information see Guidelines for Anticoagulation available from the pharmacy [facility] us Paulina Peterson MD HEMATOLOGY ORDERABLES Maame smart Result [facility] [address] [place] [address] documented in this encounter Visit Diagnoses Not on filedocumented in this encounter Care Teams Superintendent Sanitation Relationship Specialty Start Date End Date Sharan Gómez Jr., MD [address] [place] [address] PCP - General 08/10/05 documented as of this encounter
--- OUTSIDE RECORDS SUMMARY | 2025-09-25 08:29 | XMS_ITS | Encounter Summary ---
Author Organization [facility] Address [address] [place] [address] Care Team Providers Care Social Insurance Adviser Name Role Phone Rico Muñiz MD, Sharan Jaime Primary Care Provider Encounter Details Date Type Department Care Team (Latest Contact Info) Description 06/20/1999 Outpatient Historical [facility] [place] [place] [address] Serge Arrington MD [address] [place] [address] Mitral valve disorder (Primary Dx); Unspecified essential hypertension; Other and unspecified hyperlipidemia; Hematuria Social History Tobacco Use Types Packs/Day Years Used Date Smoking Tobacco: Never Assessed Comments Unknown Sex and Gender Information Value Date Recorded Sex Assigned at Not on file Legal Sex Female 5:42 AM TREE WARDEN Gender Identity Not on file Sexual Orientation Not on file documented as of this encounter Plan of Treatment Not on file documented as of this encounter Visit Diagnoses Diagnosis Mitral valve disorder- Primary Mitral valve disorders Unspecified essential hypertension Other and unspecified hyperlipidemia Hematuria documented in this encounter Care Teams Social Insurance Adviser Relationship Specialty Start Date End Date Sharan Gómez Jr., MD [address] [place] [phone] PCP - General 08/10/05 documented as of this encounter
--- OUTSIDE RECORDS SUMMARY | 2025-09-25 08:29 | XMS_ITS | Encounter Summary ---
Author Organization [facility] Address [address] [place] [address] Care Team Providers Care Burner Tender Name Role Phone Rico Muñiz MD, Sharan Jaime Primary Care Provider Encounter Details Date Type Department Care Team (Latest Contact Info) Description 08/10/2005 Outpatient Historical [facility]- [place] [address] [facility] [address] [place] [address] Bill Negron MD [address] [place] [address] ABN FIND-STOOL CONTENTS-OCC BLOOD (Primary Dx); INT HEMORRHOID W/O COMPL; ANAL FISSURE Social History Tobacco Use Types Packs/Day Years Used Date Smoking Tobacco: Never Assessed Comments Unknown Sex and Gender Information Value Date Recorded Sex Assigned at Not on file Legal Sex Female 5:42 AM GEOPHYSICAL OPERATOR Gender Identity Not on file Sexual Orientation Not on file documented as of this encounter Plan of Treatment Not on file documented as of this encounter Visit Diagnoses Diagnosis Nonspecific abnormal finding in stool contents- Primary Internal hemorrhoids without mention of complication Anal fissure documented in this encounter Care Teams Burner Tender Relationship Specialty Start Date End Date Sharan Gómez Jr., MD [address] [place] [address] PCP - General 08/10/05 documented as of this encounter
--- OUTSIDE RECORDS SUMMARY | 2025-09-25 08:29 | XMS_ITS | Encounter Summary ---
Author Organization [facility] Address [address] [place] [address] Care Team Providers Care Pipe Fitter Welding Name Role Phone Rico Muñiz MD, Sharan Jaime Primary Care Provider Encounter Details Date Type Department Care Team (Latest Contact Info) Description 04/01/1999 Outpatient Historical [facility] Sharan Gómez Jr., MD [address] [place] [address] Type II or unspecified type diabetes mellitus without mention of complication, not stated as uncontrolled (Primary Dx); Dietary surveil/primary substance abuse counselor Social History Tobacco Use Types Packs/Day Years Used Date Smoking Tobacco: Never Assessed Comments Unknown Sex and Gender Information Value Date Recorded Sex Assigned at Not on file Legal Sex Female 5:42 AM MANAGER SWITCH Gender Identity Not on file Sexual Orientation Not on file documented as of this encounter Plan of Treatment Not on file documented as of this encounter Visit Diagnoses Diagnosis Type II or unspecified type diabetes mellitus without mention of complication, not stated as uncontrolled- Primary Dietary surveil/primary substance abuse counselor Dietary surveillance and counseling documented in this encounter Care Teams Pipe Fitter Welding Relationship Specialty Start Date End Date Sharan Gómez Jr., MD [address] [place] [address] PCP - General 08/10/05 documented as of this encounter
--- OUTSIDE RECORDS SUMMARY | 2025-09-25 08:29 | XMS_ITS | Clinical Summary ---
Author Organization [facility] Address [address] [place] [address] Phone Care Team Providers Care Pearl Fisherman Name Role Phone Rico Muñiz MD, Sharan Jaime Primary Care Provider Immunizations Immunization Administration Dates Next Due (PNEUMOVAX 23)(50 YRS UP) PN EUMOCOCCAL POLYSACCHARIDE (PPV23) 0.5 ML, IM 06/26/2003 Social History Tobacco Use Types Packs/Day Years Used Date Smoking Tobacco: Never Assessed Comments Unknown Sex and Gender Information Value Date Recorded Sex Assigned at Not on file Legal Sex Female 5:42 AM PARAFFIN PLANT SWEATER OPERATOR Gender Identity Not on file Sexual [...] AND BLUE [place] Care Teams Pearl Fisherman Relationship Specialty Start Date End Date Sharan Gómez Jr., MD [address] [place] [address] PCP - General 08/10/05
--- OUTSIDE RECORDS SUMMARY | 2025-09-25 08:29 | XMS_ITS | Encounter Summary ---
Author Organization [facility] Address [address] [place] [address] Care Team Providers Care Harness Tier Name Role Phone Rico Muñiz MD, Sharan Jaime Primary Care Provider Encounter Details Date Type Department Care Team (Latest Contact Info) Description 03/18/1999 Outpatient Historical [facility] Sharan Gómez Jr., MD [address] [place] [address] Endocarditis, valve unspecified, unspecified cause (Primary Dx); terminal block assembler (current) use of anticoagulants Social History Tobacco Use Types Packs/Day Years Used Date Smoking Tobacco: Never Assessed Comments Unknown Sex and Gender Information Value Date Recorded Sex Assigned at Not on file Legal Sex Female 5:42 AM CITY DISPATCH SUPERVISOR Gender Identity Not on file Sexual Orientation Not on file documented as of this encounter Plan of Treatment Not on file documented as of this encounter Visit Diagnoses Diagnosis Endocarditis, valve unspecified, unspecified cause- Primary USP (current) use of anticoagulants Long-term (current) use of anticoagulants documented in this encounter Care Teams Harness Tier Relationship Specialty Start Date End Date Sharan Gómez Jr., MD [address] [place] [address] PCP - General 08/10/05 documented as of this encounter
[2025-09-25 08:30] LABS: Hematocrit 38.2 % (36-47); Hemoglobin 12.40 g/dL (11.27-16.99); Mean Corpuscular HGB Conc 32.5 g/dL (30-55); Mean Corpuscular Hemoglobin 34.4 pg (27-33); Mean Corpuscular Volume 106.1 fl (85-98); Nucleated Red Blood Cells % 0 %; Platelet Count 187 10^3/cmm (157-399); Red Blood Count 3.60 10^6/uL (3.85-5.65); White Blood Count 4.16 10^3/uL (3.29-11.43)
[2025-09-25 08:48] LABS: Alanine Aminotransferase 15 U/L (0-33); Albumin Level 4.6 g/dL (3.5-5.2); Alkaline Phosphatase 88 U/L (35-105); Anion Gap 12.2 (5-19); Aspartate Amino Transferase 25 U/L (0-32); Blood Urea Nitrogen 17 mg/dL (8-23); Calcium 10.0 mg/dL (8.5-10.5); Carbon Dioxide 27 mmol/L (22-29); Chloride 106 mmol/L (98-107); Creatinine Clr Calc Pharmacy 49.1439; Globulin 2.2 g/dL (1.3-4.6); Glucose 94 mg/dL (65-115); Osmolality Calculated 293 mOsm/kg (285-295); Potassium 4.2 mmol/L (3.5-5.1); Sodium 141 mmol/L (136-145); Total Protein 6.8 g/dL (6.6-8.7)
[2025-09-25 08:49] LABS: Troponin(5th) Baseline 15 ng/L (0-10)
[2025-09-25 08:53] VITALS: BP 131/105; PULSE 84; RESP 16; O2SAT 94
[2025-09-25 09:04] LABS: NT Pro B Type Natriuretic Pept 1441 pg/mL (0-450)
[2025-09-25 09:24] VITALS: BP 131/89; PULSE 88; O2SAT 95
== END 2025-09-25 09:32 | disposition home or self-care (01) ==
PROVIDERS: Emergency Provider Emergency Medicine; PCP Family Medicine
DX: R07.89 Other chest pain (principal); Z79.01 Long term (current) use of anticoagulants; Z79.82 Long term (current) use of aspirin; Z87.891 Personal history of nicotine dependence; E78.5 Hyperlipidemia, unspecified; I25.10 Atherosclerotic heart disease of native coronary artery without angina pectoris; I12.9 Hypertensive chronic kidney disease with stage 1 through stage 4 chronic kidney disease, or unspecified chronic kidney disease; N18.2 Chronic kidney disease, stage 2 (mild)
CPT/HCPCS: 71045; 80053; 83880; 84484; 85025; 93005; 99285

== ENCOUNTER 2025-09-30 10:08 | Outpatient (CLI) | payer MEDICARE, MEDICAID, SELFPAY ==
[2025-09-30 11:22] LABS: Anion Gap 13.3 (5-19); Blood Urea Nitrogen 19 mg/dL (8-23); Calcium 10.0 mg/dL (8.5-10.5); Carbon Dioxide 29 mmol/L (22-29); Chloride 102 mmol/L (98-107); Glucose 88 mg/dL (65-115); NT Pro B Type Natriuretic Pept 1299 pg/mL (0-450); Osmolality Calculated 292 mOsm/kg (285-295); Potassium 4.3 mmol/L (3.5-5.1); Sodium 140 mmol/L (136-145)
[2025-09-30 12:30] LABS: Troponin T (5th) Once 26 ng/L (0-10)
== END 2025-09-30 10:09 | disposition home or self-care (01) ==
LOC: LAB 10:10
PROVIDERS: PCP Family Medicine; Visit Provider Internal Medicine Cardiovascular Disease
DX: I48.20 Chronic atrial fibrillation, unspecified (principal); Z79.01 Long term (current) use of anticoagulants; Z79.82 Long term (current) use of aspirin; R07.89 Other chest pain; I36.1 Nonrheumatic tricuspid (valve) insufficiency; I25.10 Atherosclerotic heart disease of native coronary artery without angina pectoris; E78.5 Hyperlipidemia, unspecified; I10 Essential (primary) hypertension; Z95.2 Presence of prosthetic heart valve; Z95.5 Presence of coronary angioplasty implant and graft; R07.9 Chest pain, unspecified; I31.9 Disease of pericardium, unspecified
CPT/HCPCS: 36415; 80048; 83880; 84484; 99214

== ENCOUNTER 2025-10-14 19:59 | Emergency (ER) | payer MEDICARE, MEDICAID, SELFPAY ==
[2025-10-14] VITALS (7 sets, daily range): BP systolic 121–149; BP diastolic 67–103; PULSE 72–98; RESP 18; TEMP 36.4; O2SAT 90–98; BMI 27.1
--- OUTSIDE RECORDS SUMMARY | 2025-10-14 20:04 | XMS_ITS | Encounter Summary ---
Author Organization [facility] Address [address] [facility] Attn: Epic Prelude ADT [place] [address] Care Team Providers Care Research Technologist Name Role Phone Rico Muñiz MD, Sharan Jaime Primary Care Provider Encounter Details Date Type Department Care Team (Late st Contact Info) Description 07/03/2002 Outpatient Historical Екатерина Malone MD [address] [place] [phone] Social History Tobacco Use Types Packs/Day Years Used Date Smoking Tobacco: Never Assessed Comments Unknown Sex and Gender Information Value Date Recorded Sex Assigned at Not on file Legal Sex Female 5:42 AM YARDING ENGINEER Gender Identity Not on file Sexual Orientation Not on file documented as of this encounter Plan of Treatment Not on file documented as of this encounter Visit Diagnoses Not on filedocumented in this encounter Care Teams Research Technologist Relationship Specialty Start Date End Date Sharan Gómez Jr., MD [address] [place] [phone] PCP - General 08/10/05 documented as of this encounter
--- OUTSIDE RECORDS SUMMARY | 2025-10-14 20:04 | XMS_ITS | Encounter Summary ---
Author Organization [facility] Address [address] [place] [address] Care Team Providers Care Transportation Assistant Name Role Phone Rico Muñiz MD, Sharan Jaime Primary Care Provider Encounter Details Date Type Department Care Team (Latest Contact Info) Description 11/05/2006 Outpatient Historical [facility] Int Luis AFaisal Lopez [place] [place] [address] Serge Arrington MD [address] [place] [address] Mitral Valve Disorder (Primary Dx); Unspecified Essential Hypertension; Other and Unspecified Hyperlipidemia Social History Tobacco Use Types Packs/Day Years Used Date Smoking Tobacco: Never Assessed Comments Unknown Sex and Gender Information Value Date Recorded Sex Assigned at Not on file Legal Sex Female 5:42 AM PIPE LINE WALKER Gender Identity Not on file Sexual Orientation Not on file documented as of this encounter Plan of Treatment Not on file documented as of this encounter Visit Diagnoses Diagnosis Mitral valve disorder- Primary Mitral valve disorders Unspecified essential hypertension Other and unspecified hyperlipidemia documented in this encounter Care Teams Transportation Assistant Relationship Specialty Start Date End Date Sharan Gómez Jr., MD [address] [place] [address] PCP - General 08/10/05 documented as of this encounter
--- OUTSIDE RECORDS SUMMARY | 2025-10-14 20:04 | XMS_ITS | Encounter Summary ---
Author Organization [facility] Address [address] [place] [address] Care Team Providers Care Metal Die Finisher Name Role Phone Rico Muñiz MD, Sharan Jaime Primary Care Provider Encounter Details Date Type Department Care Team (Latest Contact Info) Description 08/06/2006 Outpatient Historical [facility] Int Luis AFaisal Lopez [place] [place] [address] Serge Arrington MD [address] [place] [address] Routine Gynecological Examination (Primary Dx) Social History Tobacco Use Types Packs/Day Years Used Date Smoking Tobacco: Never Assessed Comments Unknown Sex and Gender Information Value Date Recorded Sex Assigned at Not on file Legal Sex Female 5:42 AM AIR AND WATER FILLER Gender Identity Not on file Sexual Orientation Not on file documented as of this encounter Plan of Treatment Not on file documented as of this encounter Visit Diagnoses Diagnosis Routine gynecological examination- Primary documented in this encounter Care Teams Metal Die Finisher Relationship Specialty Start Date End Date Sharan Gómez Jr., MD [address] [place] [address] PCP - General 08/10/05 documented as of this encounter
--- OUTSIDE RECORDS SUMMARY | 2025-10-14 20:04 | XMS_ITS | Encounter Summary ---
Author Organization [facility] Address [address] [place] [address] Care Team Providers Care Assistant Hall Director Name Role Phone Rico Muñiz MD, Sharan Jaime Primary Care Provider Encounter Details Date Type Department Care Team (Late st Contact Info) Description 10/14/2020 Lab Requisition [facility] Laboratory Services [address] [place] [phone] Paulina Peterson MD [address] [place] [phone] Social History Tobacco Use Types Packs/Day Years Used Date Smoking Tobacco: Never Assessed Comments Unknown Sex and Gender Information Value Date Recorded Sex Assigned at Not on file Legal Sex Female 5:42 AM CROP PICKER Gender Identity Not on file Sexual Orientation Not on file documented as of this encounter Plan of Treatment Not on file documented as of this encounter Procedures Procedure Name Priority Date/Time Associated Diagnosis Comments PROTIME-INR Routine 10/14/2020 6:16 AM CROP PICKER documented in this encounter Results * (ABNORMAL) PROTIME-INR (10/14/2020 6:16 AM CROP PICKER) PROTIME 43.3(H) 11.9 - 15.5 Seconds 10/14/2020 4:10 PM CROP PICKER [facility] INR 4.4(H) 0.8 - 1.2 10/14/2020 4:10 PM CROP PICKER [facility] Blood Collection / Unknown 10/14/2020 6:16 AM CROP PICKER 10/14/2020 3:45 PM CROP PICKER Narrative [facility] - 10/14/2020 4:10 PM CROP PICKER Expected Values for INR: DVT/PE Goal INR [...] Guidelines for Anticoagulation available from the pharmacy [facility]. us Paulina Peterson MD HEMATOLOGY ORDERABLES Maame l Result [facility] [address] [place] [address] documented in this encounter Visit Diagnoses Not on filedocumented in this encounter Care Teams Assistant Hall Director Relationship Specialty Start Date End Date Sharan Gómez Jr., MD [address] [place] [address] PCP - General 08/10/05 documented as of this encounter
--- OUTSIDE RECORDS SUMMARY | 2025-10-14 20:04 | XMS_ITS | Encounter Summary ---
Author Organization [facility] Address [address] [place] [address] Care Team Providers Care Sr. Manager Corporate Communications Name Role Phone Rico Muñiz MD, Sharan Jaime Primary Care Provider Encounter Details Date Type Department Care Team (Latest Contact Info) Description 06/26/2003 Outpatient Historical [facility] Int Luis AFaisal Lopez [address] [place] [address] Serge Arrington MD [address] [place] [address] Mitral valve disorder (Primary Dx); HYPERTENSION NOS; HYPERLIPIDEMIA NEC/NOS; VACCINE FOR STREP PNEUMONIAE Social History Tobacco Use Types Packs/Day Years Used Date Smoking Tobacco: Never Assessed Comments Unknown Sex and Gender Information Value Date Recorded Sex Assigned at Not on file Legal Sex Female 5:42 AM COVERED BUCKLE ASSEMBLER Gender Identity Not on file Sexual [...] (pneumococcus) documented in this encounter Care Teams Sr. Manager Corporate Communications Relationship Specialty Start Date End Date Sharan Gómez Jr., MD [address] [place] [address] PCP - General 08/10/05 documented as of this encounter
--- OUTSIDE RECORDS SUMMARY | 2025-10-14 20:04 | XMS_ITS | Encounter Summary ---
Author Organization [facility] Address [address] [place] [address] Care Team Providers Care Board Liner Operator Name Role Phone Rico Muñiz MD, Sharan Jaime Primary Care Provider Encounter Details Date Type Department Care Team (Latest Contact Info) Description 07/15/2002 Outpatient Historical [facility] AMAYAFaisal Lopez Michelle [address] [place] [address] Patrick Olsen MD NO ADDRESS ON FILE POSTMENOPAUSAL BLEEDING (Primary Dx); DYSPAREUNIA; SCREENING MAL NEOP-CERVIX Social History Tobacco Use Types Packs/Day Years Used Date Smoking Tobacco: Never Assessed Comments Unknown Sex and Gender Information Value Date Recorded Sex Assigned at Not on file Legal Sex Female 5:42 AM STATISTICAL REPORTING ANALYST Gender Identity Not on file Sexual Orientation Not on file documented as of this encounter Plan of Treatment Not on file documented as of this encounter Visit Diagnoses Diagnosis Postmenopausal bleeding- Primary Dyspareunia Screening for malignant neoplasm of the cervix documented in this encounter Care Teams Board Liner Operator Relationship Specialty Start Date End Date Sharan Gómez Jr., MD [address] [place] [address] PCP - General 08/10/05 documented as of this encounter
--- OUTSIDE RECORDS SUMMARY | 2025-10-14 20:04 | XMS_ITS | Encounter Summary ---
Author Organization [facility] Address [address] [place] [address] Care Team Providers Care Engineering Systems Analyst Name Role Phone Rico Muñiz MD, Sharan Jaime Primary Care Provider Encounter Details Date Type Department Care Team (Latest Contact Info) Description 07/06/2003 Outpatient Historical [facility] [address] [place] [address] Екатерина Malone MD [address] [place] [address] AFTERCARE PROFESSIONAL ATHLETE USE MEDICATN (Primary Dx) Social History Tobacco Use Types Packs/Day Years Used Date Smoking Tobacco: Never Assessed Comments Unknown Sex and Gender Information Value Date Recorded Sex Assigned at Not on file Legal Sex Female 5:42 AM STOCK BROKER Gender Identity Not on file Sexual Orientation Not on file documented as of this encounter Plan of Treatment Not on file documented as of this encounter Visit Diagnoses Diagnosis Encounter for long-term (current) use of other medications- Primary documented in this encounter Care Teams Engineering Systems Analyst Relationship Specialty Start Date End Date Sharan Gómez Jr., MD [address] [place] [address] PCP - General 08/10/05 documented as of this encounter
--- OUTSIDE RECORDS SUMMARY | 2025-10-14 20:04 | XMS_ITS | Encounter Summary ---
Author Organization [facility] Address [address] [place] [address] Care Team Providers Care Fuel Cell Assembler Name Role Phone Rico Muñiz MD, Sharan Jaime Primary Care Provider Encounter Details Date Type Department Care Team (Latest Contact Info) Description 08/06/2006 Outpatient Historical [facility] [place] [facility] Luis AFaisal Lopez [address] [place] [id number] Serge Arrington MD [address] [place] [address] Mitral Valve Disorder (Primary Dx); Other and Unspecified Hyperlipidemia; Screening for Malignant Neoplasm of the Cervix Social History Tobacco Use Types Packs/Day Years Used Date Smoking Tobacco: Never Assessed Comments Unknown Sex and Gender Information Value Date Recorded Sex Assigned at Not on file 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
--- OUTSIDE RECORDS SUMMARY | 2025-10-14 20:04 | XMS_ITS | Encounter Summary ---
Author Organization [facility] Address [address] [place] [address] Care Team Providers Care Supervisor Orchard Name Role Phone Rico Muñiz MD, Sharan Jaime Primary Care Provider Encounter Details Date Type Department Care Team (Latest Contact Info) Description 02/16/1999 Outpatient Historical [facility] Sharan Gómez Jr., MD [address] [place] [address] Unspecified essential hypertension (Primary Dx); correction (current) use of anticoagulants Social History Tobacco Use Types Packs/Day Years Used Date Smoking Tobacco: Never Assessed Comments Unknown Sex and Gender Information Value Date Recorded Sex Assigned at Not on file 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
--- OUTSIDE RECORDS SUMMARY | 2025-10-14 20:04 | XMS_ITS | Encounter Summary ---
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
--- OUTSIDE RECORDS SUMMARY | 2025-10-14 20:04 | XMS_ITS | Data Portability ---
Author Organization [facility] Kenneth Haas [facility] Address [address] [place] [address] Care Team Providers Care Long Filler Cigar Roller Machine Name Role Phone LYN MARMOLEJO Primary Care Provider [phone] Assessment Encounter Date Assessment Date Assessment LastModified by Organization Details LastModified Time 10/02/2025 10/02/2025 I reviewed the patient's recent labs, vital signs, medications, and plan of care. I recommend no other change sat this time. [email or web address] Not available 10/06/2025 13:18:51 Plan of Treatment Reminders Order Date Submit Date Provider Last Modified By Organization Details Last Modified Time Details Appointments None recorded . Lab PT/INR 025 10/09/20 [facility] ([facility]), [address] [place], [address], 11:35:32 BMP, serum or plasma - llv order 025 10/08/20 25 [facility], [address] [facility], [address], [address], 17:19:52 BMP, serum or plasma 025 10/02/20 25 [facility], [address] [facility], [address], [address], 11:14:46 PT/INR 025 09/17/20 25 [facility]), [address] [place], [address], 13:36:28 Referral None recorded . Procedures None recorded . Surgeries None recorded . Imaging None recorded . Medication Orders None recorded . Patient TargetsNo targets recorded. Patient InstructionsNo instructions recorded. Reason for Referral None Reported. Results Created Date Observation Date Name Description Value Unit Range Abnormal Flag Note LastModifiedBy Organization Detail LastModifiedTime 08/17/2008/17/2025 CBC WBC 6.3 x10 4.0-10 .5 Not Available [facility] [address] [facility] [address], [place], [address], 08/17/2025 15:57:00 08/17/2008/17/2025 CBC RBC 3.45 x10 3.50-5 .50 low Not Available [facility] [address] [address], [place], [address], 08/17/2025 15:57:00 08/17/2008/17/2025 CBC HGB 12.4 g/dL 12.0-1 6.0 Not Available [facility] [address] [facility] [address], [place], [address], 08/17/2025 15:57:00 08/17/2008/17/2025 CBC HCT 37.7 % 37.0-4 7.0 Not Available [facility] [address] [address], [place], [address], 08/17/2025 15:57:00 08/17/2008/17/2025 CBC MCV 109.2 fL 80.0-9 9.9 high Not Available [facility] [address] [facility] [address], [place], [address], 08/17/2025 15:57:00 08/17/2008/17/2025 CBC MCH 36.0 pg 27.0-3 2.0 high Not Available [facility] [address] [facility], [place], [address], 08/17/2025 15:57:00 08/17/2008/17/2025 CBC MCHC 32.9 g/dL 32.0-3 6.0 Not Available [facility] [address] [facility] 1, [place], [address], 08/17/2025 15:57:00 08/17/20 25 08/17/2025 CBC RDW 12.7 % 11.5-1 4.5 Not Available [facility] [address] [facility] 1, [place], [address], 08/17/2025 15:57:00 08/17/2008/17/2025 CBC plt 239.0 x10 140.0- 451.0 Not Available [facility] [address] [facility] 1, [place], [address], 08/17/2025 15:57:00 08/17/2008/17/2025 CBC lymphocytes % 27.7 % 20.0-5 0.0 Not Available [facility] [address] [facility] 1, [place], [address], 08/17/2025 15:57:00 08/17/2008/17/2025 CBC granulcytes % 56.9 % 30.0-7 0.0 Not Available [facility] [address] [facility] 1, [place], [address], 08/17/2025 15:57:00 08/17/2008/17/2025 CBC monocytes % 10.1 % 2.0-16 .0 Not Available [facility] [address] [facility] 1, [place], [address], 08/17/2025 15:57:00 08/17/20 08/17/2025 CBC granulcytes# 3.6 x10 Not Cyndi ilable [facility] [address] [address], [place], [address], 08/17/2025 15:57:00 08/17/20 25 08/17/2025 CBC lymphocytes # 1.8 x10 Not Available [facility] [address] [address], [place], [address], 08/17/2025 15:57:00 08/17/20 25 08/17/2025 CBC monocytes # 0.6 x10 Not Avai lable [facility] [address] [address], [place], [address], 08/17/2025 15:57:00 08/17/20 25 08/17/2025 TSH TSH 0.81 uIU/m L 0.49-3 .82 Not Available [facility] [address] [address], [place], [address], 08/17/2025 16:04:05 08/17/2008/18/2025 PERIP HERAL BLOOD SMEAR REVIE W peripheral blood smear review Macro cytos is 1 + Ovalo cytes 1 + Polyc hroma mikhail 1 + Revie w of the perip heral smear revea ls adequ ate numbe rs of plate lets. Revie w of perip heral smear confi jace autom ated resul ts. Not Available [facility] [address] [place], [address], 08/18/2025 15:11:08 08/17/2008/19/2025 METHY LMALO SE ACID [...] : 63-24 1 nmol/ L Not Available [facility] [address] [address] , [place], [address], 08/20/2025 00:38:15 08/17/20 25 08/19/2025 METHY LMALO [...] for clini luisito purpo ses. Not Available [facility] [address], [address], 08/20/2025 00:38:15 08/17/20 25 08/19/2025 PROTE IN, TOTAL AND PROTE IN ELECT ROPHO RESIS W/ REFL [place] protein, total 7.1 g/dL 6.1-8. 1 normal Not Available [address], [address], 08/20/2025 00:38:16 08/17/2008/19/2025 PROTE IN, TOTAL AND PROTE IN ELECT ROPHO RESIS W/ REFL [place] albumin 4.5 g/dL 3.8-4. 8 normal Not Available [facility] [address], [address], 08/20/2025 00:38:16 08/17/20 25 08/19/2025 PROTE IN, TOTAL AND PROTE IN ELECT ROPHO RESIS W/ REFL [place] alpha 1 globulin 0.3 g/dL 0.2-0. 3 normal Not Available [facility] [address] [address] [place], [address], 08/20/2025 00:38:16 08/17/2008/19/2025 PROTE IN, TOTAL AND PROTE IN ELECT ROPHO RESIS W/ REFL [place] alpha 2 globulin 0.5 g/dL 0.5-0. 9 normal Not Available [facility] [address] [address] [place], [address], 08/20/2025 00:38:16 08/17/2008/19/2025 PROTE IN, TOTAL AND PROTE IN ELECT ROPHO RESIS W/ REFL [place] beta 1 globulin 0.4 g/dL 0.4-0. 6 normal Not Available [facility] [address], [address], 08/20/2025 00:38:16 08/17/20 25 08/19/2025 PROTE IN, TOTAL AND PROTE IN ELECT ROPHO RESIS W/ REFL [place] beta 2 globulin 0.3 g/dL 0.2-0. 5 normal Not Available [facility] [address], [address], 08/20/2025 00:38:16 08/17/20 25 08/19/2025 PROTE IN, TOTAL AND PROTE IN ELECT ROPHO RESIS W/ REFL [place] gamma globulin 1.1 g/dL 0.8-1. 7 normal Not Available [facility] [address], [address], 08/20/2025 00:38:16 08/17/20 25 08/19/2025 PROTE IN, TOTAL AND PROTE IN ELECT ROPHO RESIS W/ REFL [place] interpretati on No restr icted band (M-sp mera) seen. Not Available [address], [address], 08/20/2025 00:38:16 08/17/2008/19/2025 PTH, INTAC T (ICMA [...] Joie l High Not Available [facility] [address], [address], 08/20/2025 00:38:16 08/17/20 25 08/19/2025 PTH, INTAC T (ICMA ) AND IONIZ ED CALCI UM calcium 10.2 mg/dL 8.6-10 .4 normal Not Available [address], [address], 08/20/2025 00:38:16 08/17/20 25 08/19/2025 PTH, INTAC T (ICMA ) AND IONIZ ED CALCI UM calcium, ionized 5.6 mg/dL 4.7-5. 5 high Not Available [address], [address], 08/20/2025 00:38:16 08/17/20 25 08/19/2025 T4, FREE T4, free 1.9 NG/dL 0.8-1. 8 high Not Available [address], [address], 08/20/2025 00:38:17 08/17/20 25 08/19/2025 VITAM IN B12 vitamin B12 >2000 pg/mL 200-11 00 high Not Available [address], [address], 08/20/2025 00:38:18 08/17/20 25 08/17/2025 PT/IN R Protime 21.5 Not Available [facility] [address] [place] [address], [address], 08/17/2025 14:33:48 08/17/20 25 08/17/2025 PT/IN R INR 1.8 Not Available [facility] ([facility]) [address] [place] [address], [address], 08/17/2025 14:33:48 09/02/20 25 09/02/2025 PT/IN R Protime 29.0 Not Available [facility] ([facility]) [address] [place] [address], [address], 09/02/2025 13:17:30 09/02/20 25 09/02/2025 PT/IN R INR 2.4 Not Available [facility] ([facility]) [address] [place], [address], 09/02/2025 13:17:30 09/09/20 25 09/09/2025 CMP (FEMA LE) glucose 93.0 mg/dL 60.0-9 9.0 Not Available [facility] [address] [facility] 1, [place], [address], 09/09/2025 10:43:31 09/09/20 25 09/09/2025 CMP (FEMA LE) BUN (blood urea nitrogen) 20.0 mg/dL 10.0-2 6.0 Not Available [facility] [address] [facility] 1, [place], [address], 09/09/2025 10:43:31 09/09/20 25 09/09/2025 CMP (FEMA LE) creatinine (serum) 0.9 mg/dL 0.4-1. 5 Not Available [facility] [address] [facility] 1, [place], [address], 09/09/2025 10:43:31 09/09/20 25 09/09/2025 CMP (FEMA LE) BUN/creatini ne ratio 22.22 ratio Not Available [facility] [address] [facility] 1, [place], [address], 09/09/2025 10:43:31 09/09/20 25 09/09/2025 CMP (FEMA LE) eGFR calculated 64.9 Not Available [facility] [address] [facility] [address], [place], [address], 09/09/2025 10:43:31 09/09/20 25 09/09/2025 CMP (FEMA LE) total protein 7.5 g/dL 6.0-8. 5 Not Available [facility] [address] [facility] 1, [place], [address], 09/09/2025 10:43:31 09/09/20 25 09/09/2025 CMP (FEMA LE) total bilirubin 1.1 mg/dL 0.2-1. 3 Not Available [facility] [address] [place] [facility] 1, [place], [address], 09/09/2025 10:43:31 09/09/20 25 09/09/2025 CMP (FEMA LE) albumin 5.0 g/dL 3.5-5. 5 Not Available [facility] [address] [facility] 1, [place], [address], 09/09/2025 10:43:31 09/09/20 25 09/09/2025 CMP (FEMA LE) globulin 2.5 calc Not Available [facility] [address] [place] [facility] 1, [place], [address], 09/09/2025 10:43:31 09/09/20 25 09/09/2025 CMP (FEMA LE) AST (SGOT) 35.0 U/L 0.0-46 .0 Not Available [facility] [address] [place] [facility] 1, [place], [address], 09/09/2025 10:43:31 09/09/20 25 09/09/2025 CMP (FEMA LE) altv (SGPT) 17.0 U/L 13.0-6 9.0 normal Not Available [facility] [address] [place] [facility] 1, [place], [address], 09/09/2025 10:43:31 09/09/20 25 09/09/2025 CMP (FEMA LE) A/G ratio 2.0 ratio Not Available [facility] [address] [place] [facility] 1, [place], [address], 09/09/2025 10:43:31 09/09/20 25 09/09/2025 CMP (FEMA LE) ALP phos 77.0 U/L 30.0-1 40.0 normal Not Available [facility] [address] [facility], [place], [address], 09/09/2025 10:43:31 09/09/20 25 09/09/2025 CMP (FEMA LE) calcium 10.4 mg/dL 8.4-10 .5 Not Available [facility] [address] [facility] 1, [place], [address], 09/09/2025 10:43:31 09/09/2009/09/2025 CMP (FEMA LE) sodium 139.0 mmol/ L 136.0- 145.0 Not Available [facility] [address] [facility] 1, [place], [address], 09/09/2025 10:43:31 09/09/20 25 09/09/2025 CMP (FEMA LE) potassium 4.2 mmol/ L 3.5-5. 1 Not Available [facility] [address] [facility] 1, [place], [address], 09/09/2025 10:43:31 09/09/20 25 09/09/2025 CMP (FEMA LE) chloride 105.0 mmol/ L 98.0-1 10.0 normal Not Available [facility] [address] [facility] 1, [place], [address], 09/09/2025 10:43:31 09/09/2009/09/2025 CMP (FEMA LE) C02 28.0 mmol/ L 22.0-3 1.0 Not Available [facility] [address] [facility] 1, [place], [address], 09/09/2025 10:43:31 09/09/2022 0909/09/2025 CMP (FEMA LE) anion gap 6.0 calc Not Available [facility] [address] [facility] 1, [place], [address], 09/09/2025 10:43:31 09/09/20 25 09/09/2025 CMP (FEMA LE) osmolality 289.3 calc Not Available [facility] [address] [facility] 1, [place], [address], 09/09/2025 10:43:31 09/17/20 25 09/17/2025 PT/IN R Protime 27.5 Not Available [facility] ([facility]) [address] [place] [address], [address], 09/17/2025 13:23:29 09/17/20 25 09/17/2025 PT/IN R INR 2.3 Not Available [facility] ([facility]) [address] [place] [address], [address], 09/17/2025 13:23:29 10/08/20 25 10/08/2025 BMP (FEMA LE) glucose 95.0 mg/dL 60.0-9 9.0 Not Available [facility] [address] [facility] 1, [place], [address], 10/08/2025 17:19:52 10/08/20 25 10/08/2025 BMP (FEMA LE) BUN (blood urea nitrogen) 22.0 mg/dL 10.0-2 6.0 Not Available [facility] [address] [facility] 1, [place], [address], 10/08/2025 17:19:52 10/08/20 25 10/08/2025 BMP (FEMA LE) creatinine (serum) 1.0 mg/dL 0.4-1. 5 Not Available [facility] [address] [facility] 1, [place], [address], 10/08/2025 17:19:52 10/08/20 25 10/08/2025 BMP (FEMA LE) BUN/creatini ne ratio 22.00 ratio Not Available [facility] [address] [facility] 1, [place], [address], 10/08/2025 17:19:52 10/08/20 25 10/08/2025 BMP (FEMA LE) calcium 10.8 mg/dL 8.4-10 .5 high Not Available [facility] [address] [facility] 1, [place], [address], 10/08/2025 17:19:52 10/08/20 25 10/08/2025 BMP (FEMA LE) sodium 140.0 mmol/ L 136.0- 145.0 Not Available [facility] [address] [facility] 1, [place], [address], 10/08/2025 17:19:52 10/08/20 25 10/08/2025 BMP (FEMA LE) potassium 4.4 mmol/ L 3.5-5. 1 Not Available [facility] [address] [facility] 1, [place], [address], 10/08/2025 17:19:52 10/08/20 25 10/08/2025 BMP (FEMA LE) chloride 101.0 mmol/ L 98.0-1 10.0 normal Not Available [facility] [address] [facility] 1, [place], [address], 10/08/2025 17:19:52 10/08/20 25 10/08/2025 BMP (FEMA LE) C02 29.0 mmol/ L 22.0-3 1.0 Not Available [facility] [address] [place] [facility], [place], [address], 10/08/2025 17:19:52 10/08/20 25 10/08/2025 BMP (FEMA LE) anion gap 10.0 calc Not Available [facility] [address] [facility] 1, [place], [address], 10/08/2025 17:19:52 10/09/20 25 10/09/2025 PT/IN R Protime 50.3 Not Available [facility] ([facility]) [address] [place], [address], 10/09/2025 11:16:11 10/09/20 25 10/09/2025 PT/IN R INR 4.2 Not Available [facility] ([facility]) [address] [place], [address], 10/09/2025 11:16:11 09/09/20 25 09/08/2025 US, echoc ardio gram, trans thora cic, compl ete, w/ color flow No observ ation record ed. [facility] [address] [place], [address], 09/11/2025 09:19:21 09/15/20 25 09/15/2025 MAMMO , scree ilya, digit al, bilat eral No observ ation record ed. [email or web address] [place] [address] [address] [place], [address], 09/16/2025 16:09:54 Result Notes None recorded. Problems Name Problem SNOMED Code Status Onset Date Resolution Date Notes Provider Name and Address Organization Details Recorded Time Depressi ve disorder 40951655 Completed 202010/14/2021 Depressi on - Status is Inactive ; 10/14/20 11:08AM by Maryellen Marmolejo PA-C, Annotati on/Adden dum; Promoted ; acuity set as *; FELISHA DESIR [facility], [place] - [facility] [address], L.LJosueCJosue 5 07:56:57 Herpes zoster 2631887 Completed 202201/02/2025 SHINGLES FELISHA hamilton, [facility] 5 07:56:03 Dysthymi a 57193873 Active 2022 DEPRESSI ON WITH ANXIETY FELISHA hamilton, [facility] 5 07:55:28 Benign essentia l hyperten jovanni 0873656 Active 2022 FELISHA DESIR null, [facility] 5 07:55:28 Gastroes ophageal reflux disease 528348922 Active 2022 FELISHA hamilton, [facility] 5 07:55:28 Fracture of upper end of humerus 610099270 Completed 202201/02/2025 CLOSED FRACTURE OF PROXIMAL END OF RIGHT HUMERUS, SEQUELA FELISHA hamilton, [facility] 5 07:56:03 History of lathe mechanic al prosthet ic mitral valve replacem ent 149252851 Active 2022 FELISHA hamilton, [facility] 5 07:56:22 Atrial fibrilla tion 92995926 Active 2022 FELISHA hamilton, [facility] 3 14:45:05 Coronary atherosc lerosis 412227095 Active 2022 bare metal stents to circ and LAD 2011 FELISHA hamilton, [facility] 3 14:46:30 Iron deficien cy anemia 35078770 Active 2022 FELISHA hamilton, [facility] 5 07:55:28 Hypothyr oidism 65887468 Active 2022 FELISHA hamilton, [facility] 3 14:45:59 Anxiety 76699899 Active 2022 FELISHA DESIR null, [facility] 3 14:46:54 Viral hepatiti s C 82195451 Active 2022 FELISHA DESIR null, [facility] 5 07:55:28 Moderate recurren t major depressi on 07294309 Active 2023 FELISHA DESIR null, [facility] 5 07:55:28 Need for personal care assistan ce 74178933454 412263 Active 2023 FELISHA DESIR null, [facility] 5 07:55:28 Frail elderly 278737862 Active 2023 FELISHA DESIR null, [facility] 5 07:55:28 Seasonal allergic rhinitis 921757611 Active 2023 FELISHA DESIR null, [facility] 5 07:55:28 Chronic pain 11040025 Active 2023 FELISHA DESIR null, [facility] 5 07:55:28 Dementia 76255597 Active 2023 FELISHA DESIR null, [facility] 5 07:55:28 Constipa tion 40883677 Active 2023 FELISHA DESIR null, [facility] 5 07:55:44 Hyperlip idemia 87721255 Active 2024 FELISHA DESIR null, [facility] 5 07:59:38 Occult blood detected in feces 58542553 Active 2024 FELISHA DESIR alfonso [facility]ue 5 09:13:35 Mean corpuscu lar volume above referenc e range 394362302 Active 2024 FELISHA DESIR alfonso [facility] 5 09:14:07 Hypercal cemia 75305277 Active 2024 FELISHA DESIR alfonso [facility] 5 10:07:49 Vitamin D deficien cy 35849536 Active 2024 Lyn Marmolejo MD [address] [place] [address], [address] [place] [address] 5, [facility].L.C[facility] 5 12:54:55 Hyperpar athyroid ism 61498697 Active 2024 Lyn Marmolejo MD [address] [place] [address], [address], [facility] 5 12:54:56 Dysuria 59635636 Active 2024 Dotty hamilton [facility].L.CJosue 14:08:08 Problem Notes None recorded. Procedures Surgical History Date Name Laterality Status Provider Name and Address Organization Details Recorded Time 2024 Most Recent Mammogram completed FELISHA DESIR [facility] 5 16:09:39 2024 esophagogastroduodenoscopy completed YANELIS DESIR [facility].L.C[facility] 5 12:23:16 2024 colonoscopy completed FELISHA DESIR [facility].L.C[facility] 5 10:20:11 2023 esophagogastroduodenoscopy completed KIARA DUCKWORTH [facility].L.CJosue 4 12:40:14 2023 colonoscopy completed Lyn Marmolejo MD [address] [place], [address], [facility] 5 10:19:30 cholecystectomy completed FELISHA DESIR [facility] 3 14:48:40 replacement of mitral valve complete d FELISHA DESIR [facility] 3 14:49:22 section completed FELISHA DESIR [facility] 3 15:14:43 Imaging Results None recorded. Procedure Notes None recorded. Medical Equipment None Reported. Allergies Allergen ID Allergen Name Allergen Category Reaction Reaction Severity Criticality Documentation Date Start Date Code Code System Note Provider Name and Address Organization Details Recorded Time 1376 morphine medicatio n Not available Not available Not available 02/07/2023 7052 RxNorm Dotty Vimal [facility] 3 10:45:47 1377 diltiazem Not available Not available Not available Not available 02/07/2023 3443 RxNorm Dotty Celis [facility] 3 10:45:54 4552 Bactrim medicatio n other severe high 04/17/2023 59890 9 RxNorm do not give d/t couma din Lola Wadelm [facility] 4 13:34:33 09491 diltiazem hydrochlo ride medicatio n Not available Not available Not available 05/26/2023 1 RxNorm Comme nt: Recor ded 12/29 7:56A M by Yanelis Kitchen on, [employer], 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 ; Promo talib; Revai dolores ce: *; Reaso n: Drug aller gy; ; FELISHA DESIR [facility] 3 12:26:44 46189 morphine sulfate medicatio n Not available Not available Not available 05/26/2023 43807 RxNorm Comme nt: Recor ded 12/29 7:56A M by Yanelis Kitchen on, [employer], 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 ; Debra mayers; Trey bernal ce: *; Reaso n: Drug aller gy; ; FELISHA DESIR [facility] 3 12:26:48 Medications Name Sig Start Date Stop Date Status Note LastModified by Organization Details LastModified Time furosemid e 40 mg tablet TAKE 1 AND 1/2 TABLETS BY MOUTH EVERY DAY FOR EDEMA 10/02 completed Not Available Not Available Not Available Miralax 17 gram/dose oral powder Take 17 [...] completed Not Available Not Available Not Available isosorbid e mononitra te ER 30 mg tablet,ex tended release 24 hr TAKE 1 TABLET BY MOUTH EVERY DAY active Not Available Not Available No t [...] 1 TABLET BY MOUTH EVERY 6 HOURS NEEDED; NOT TO EXCEED 3 TABLETS PER DAY FOR PAIN active Not Available Not Available [...] No t Available warfarin 3 mg tablet TAKE 1 TABLET BY MOUTH ON SUNDAY AND Sunday active Not Available Not Available Not Avai lable levothyro xine 75 mcg tablet TAKE ONE [...] completed Not Available Not Available Not Available furosemid e 80 mg tablet Take 1 tablet every day by oral route. active Not Available Not Available No t Available cephalexi n 500 mg capsule 05/27 [...] nitroglyc lazara 0.4 mg sublingua l tablet TAKE 1 TABLET UNDER THE TONGUE EVERY 5 MINUTES X3 NEEDED FOR CHEST PAIN 2024 active Not Available Not Available Not Avai lable Tylenol 325 mg tablet every 6 hrs [...] hydroxyzi ne HCl 25 mg tablet TAKE ONE TABLET BY MOUTH three times daily NEEDED FOR ANXIETY active Not Available Not Available No t Available cyanocoba bernie (vit B-12) 1,000 mcg sublingua l tablet dissolve TWO tablets UNDER THE TONGUE ONCE daily 2024 active Not Available Not Available Not Avai lable mirtazapi ne 15 mg tablet TAKE ONE TABLET BY MOUTH EVERY DAY MDD 2024 active Not Available Not Available Not Avai lable ipratropi um bromide 42 mcg (0.06 %) [...] Recorded 11/13/19 3:03PM by Dotty Larry RN (Jakci palomino through Lyn Marmolejo MD), Refill Request; Refill Quantity : 30; Capsule; Not Available Not Available Not Available furosemid e daily 06/08 completed 436; Recorded 01/02/20 3:43PM by Felisha Desir LPN (Authorelena palomino through Lyn Marmolejo MD), Refill Request; Refill Quantity : 30; Tablet; Not Available Not Available Not Available fiber 06/08 completed Not Available Not Available Not Available [facility] Levothyro xine Sodium daily 06/08 completed [address]4439; Recorded 01/09/20 6:06PM by Shirley Quevedo (Authori [...] height Body mass index (BMI) Body weight Heart rate Systolic And Diastolic Provider Name and Address Organization Details Last Updated DateTime 10/02/2025 154.94 cm 28.5 kg/m2 12975.45 g 71 /min 118/79 mm[Hg] FELISHA DESIR [facility] 10/02/2025 08:31:58 Social History Question Answer Notes LastModified by [...] use any illicit or recreational drugs? No [email or web address] Information not available 04/17/2023 Do you or have you ever used any other forms of tobacco or nicotine? No [email or web address] Information not available 06/29/2023 What is your level of alcohol consumption? None [email or web address] Information not available 04/17/2023 Mental Status None recorded. Family History Relationship Description Onset Age of this Age Resolved Age Notes LastModified by Organization Details LastModified Time Unspecified Relation Coronary atherosclero sis [id number] Not available 06/29 15:13:48 Medical History No [...] 50 mcg/0.25mL dose 2 completed FELISHA hamilton [facility] 10/10/2024 08:38:58 Pneumococcal conjugate PCV20, polysaccharide [id number] conjugate, adjuvant, PF 3 completed FELISHA hamilton [facility] 10/10/2024 08:38:58 COVID-19, mRNA, LNP-S, bivalent, PF, 50 mcg/0.5 mL or 25mcg/0.25 mL dose 3 completed FELISHA DESIR null, [facility] 10/10/2024 08:38:58 pneumococcal polysaccharide PPV23 3 completed FELISHA DESIR null, [facility] 04/17/2023 12:02:00 Tdap 1 completed FELISHA DESIR null, [facility] 10/10/2024 08:38:58 Influenza, split virus, trivalent, PF 3 completed FELISHA DESIR null, [facility] 04/17/2023 12:02:00 influenza, split (incl. purified surface antigen) 0 completed FELISHA DESIR null, [facility] 04/17/2023 12:02:00 Hep A, adult 1 completed FELISHA DESIR null, [facility] 10/10/2024 08:38:58 Hep A, adult 9 completed FELISHA DESIR null, [facility] 10/10/2024 08:38:58 Influenza, split virus, quadrivalent, PF 1 completed FELISHA DESIR null, [facility] 10/10/2024 08:38:58 Influenza, split virus, quadrivalent, PF 9 completed FELISHA DESIR null, [facility] 10/10/2024 08:38:58 Influenza, MDCK, trivalent, PF 4 completed FELISHA DESIR null, [facility] 10/10/2024 08:38:58 Influenza, MDCK, quadrivalent, preservative 3 completed FELISHA hamilton, [facility] 10/10/2024 08:38:58 pneumococcal [...] MDCK, trivalent, preservative 4 completed FELISHA hamilton, [facility] 10/10/2024 08:38:58 Influenza, high-dose, trivalent, PF 5 completed Not Available [facility] 10/13/2025 09:55:50 Past Encounters Encounter ID Performer Location Encounter Start Date Encounter Closed Date Diagnosis/Indication Diagnosis SNOMED-CT Code Diagnosis ICD10 Code Diagnosis IMO Codes Diagnosis Note [id number] Lyn Marmolejo MD [facility] ([facility]) [address] [place] [address] 45345-186 5 02/07/2023 10:19:57 02/14/2023 10:45:49 Strain of thoracic region 14270782 S29.019A use your prn pain mediation. call if worsening. [id number] Lyn Marmolejo MD [facility] ([facility]) [address] [place] [address] 33911-530 5 02/14/2023 10:43:17 02/15/2023 17:26:16 Chronic low back pain 869164924 M54.50 [id number] Constantino Merlos DO [facility] ([facility]) [address] [place] [address] 5 02/21/2023 09:19:45 02/21/2023 11:05:37 Nasal congestion 69391481 R09.81 Acute sinusitis 44629722 J01.90 1 wk of symtoms, wrosening for last 3 days. covid and flu A and B negative today. will start abx due to comorbidit ies and wornseing symptoms. Return to office with no improvemen t or any problems. Go to ER with severe worsening or severe problems. [id number] Lyn Marmolejo MD [facility] ([facility]) [address] [place] [address] 75443-232 5 04/17/2023 08:30:45 04/26/2023 09:32:24 Diabetes mellitus 01812092 E11.59 Hypothyroidism 88526668 E03.9 Female uri nary stress incontinence 75609103 N39.3 Not interested in surgical management at this time Frail elderly 757986342 R54 Need for [facility] care assistance [phone] 0679863 Z74.1 Dementia 18712073 F03.90 Coronary atherosclerosis 302284965 I25.307 [id number] Lyn Marmolejo MD [facility] ([facility]) [address] [place] [address] 85976-608 5 06/08/2023 12:20:01 06/08/2023 13:17:48 Neck pain 67825068 M54.2 [id number] Lyn Marmolejo MD [facility] ([facility]) [address] [place] [address] 15782-804 5 06/29/2023 08:43:26 07/09/2023 14:07:10 Benign essential hypertension 7643341 I10 Atrial fibrillation 4943 6004 I48.91 Hypothyroidism 12579865 E03.9 Coronary atherosclerosis 812604161 I25.195 [id number] Lyn Marmolejo MD [facility] ([facility]) [address] [place] [address] 03500-777 5 07/17/2023 15:47:18 08/01/2023 10:19:07 [id number] Lyn Marmolejo MD [facility] ([facility]) [address] [place] [address] 49279-253 5 07/18/2023 11:59:39 07/18/2023 15:46:29 Pruritic rash 19317310 L28.2 patch rash with scale left upper lateral backshe has no other rash patch etcfavorin g psoriasis. Acquired scoliosis 49467 6001 M41.9 [id number] Lyn Marmolejo MD [facility] ([facility]) [address] [place] [address] 62303-256 5 08/27/2023 13:38:26 09/03/2023 15:02:50 Atrial fibrillation 54879458 I48.91 [id number] Lyn Marmolejo MD [facility] ([facility]) [address] [place] [address] 62661-914 5 08/29/2023 11:48:52 08/29/2023 13:03:23 Hypothyroidism 89760860 E03.9 Type 2 brenda betes mellitus 86686622 E11.9 [id number] Lyn Marmolejo MD [facility] ([facility]) [address] [place] [address] 45164-489 5 09/25/2023 14:58:13 10/01/2023 11:08:35 Atrial fibrillation 37816109 I48.91 [id number] Lyn Marmolejo MD [facility] ([facility]) [address] [place] [address] 01336-978 5 09/28/2023 08:22:55 10/03/2023 10:36:00 Atrial fibrillation 93751078 I48.91 Hyperlipidemia 13929734 E78.00 Hypothyroidism 40458201 E03.9 Type 2 brenda betes mellitus 80447372 E11.9 Esophageal dysphagia 408 21136 R13.19 Cough 15997874 R05.9 [id number] Lyn Marmolejo MD [facility] ([facility]) [address] [place] [address] 29510-663 5 10/12/2023 09:31:01 10/12/2023 10:18:44 Benign essential hypertension 9662557 I10 [id number] SHARON GARZON [facility] ([facility]) [address] [place] [address] 96616-735 5 10/12/2023 13:42:39 10/18/2023 12:21:01 Dysuria 84061293 R30.0 Acute urin nhung tract infection 299480640 N39.0 [id number] Lyn Marmolejo MD [facility] ([facility]) [address] [place] [address] 71028-706 5 11/02/2023 11:29:05 11/06/2023 09:48:39 Atrial fibrillation 02780265 I48.91 [id number] Lyn Marmolejo MD [facility] ([facility]) [address] [place] [address] 26679-585 5 11/07/2023 09:01:58 11/07/2023 11:07:24 Dementia 62061651 F03.90 Atrial fibrillation 4943 6004 I48.91 Coronary atherosclerosis 002549509 I25.119 Hypothyroidism 35702252 E03.9 Hyperlipidemia 49379707 E78.00 Depressive disorder 3548 9007 F32.A will need med adjustment most likely. 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) [address] [place] [address] 34540-893 5 11/15/2023 14:44:57 11/19/2023 07:33:27 Atrial fibrillation 72787049 I48.91 [id number] Lyn Marmolejo MD [facility] ([facility]) [address] [place] [address] 30154-042 5 11/20/2023 09:33:11 11/21/2023 13:21:39 Atrial fibrillation 42056458 I48.91 [id number] Lyn Marmolejo MD [facility] ([facility]) [address] [place] [address] 48244-371 5 11/27/2023 13:33:40 11/27/2023 14:57:35 Atrial fibrillation 08022083 I48.91 [id number] Lyn Marmolejo MD [facility] ([facility]) [address] [place] [address] 5 12/11/2023 10:07:28 12/14/2023 15:19:27 Atrial fibrillation 58951273 I48.91 [id number] Lyn Marmolejo MD [facility] ([facility]) [address] [place] [address] 21458-458 5 12/25/2023 15:15:19 12/27/2023 12:08:25 Atrial fibrillation 90041827 I48.91 [id number] Lyn Marmolejo MD [facility] ([facility]) [address] [place] [address] 79734-367 5 12/28/2023 08:26:17 01/01/2024 08:43:00 Atrial fibrillation 03492551 I48.91 Hyperlipidemia 38222118 E78.00 Hypothyroidism 90896937 E03.9 History of mechanical prosthetic mitral valve replacement 450445410 Z95.2 Frail elderly 298894009 R54 Need for [facility] care assistance [phone] 1632336 Z74.1 [id number] Lyn Mamrolejo MD [facility] ([facility]) [address] [place] [address] 35711-187 5 01/04/2024 10:25:22 01/09/2024 06:41:29 Atrial fibrillation 70936546 I48.91 [id number] LIA HERNANDEZ APRN [facility] ([facility]) [address] [place] [address] 84268-004 5 01/15/2024 12:59:04 01/16/2024 11:43:55 Dysuria 87316121 R30.0 Urine will be sent for culture Low back pain 281430183 M54.50 Instructed on exercises. Follow up for worsening [id number] Lyn Marmolejo MD [facility] ([facility]) [address] [place] [address] 63185-366 5 01/25/2024 10:56:45 01/28/2024 07:51:23 Atrial fibrillation 42306303 I48.91 [id number] Lyn Marmolejo MD [facility] ([facility]) [address] [place] [address] 61502-297 5 01/28/2024 13:26:01 01/28/2024 15:49:26 Cough 90569246 R05.9 Lightheadedness 39464922 8 R42 Atrial fibrillation 4943 6004 I48.91 History of mechanical prosthetic mitral valve replacement 704327141 Z95.2 Dementia 80923962 F03.90 [id number] Lyn Marmolejo MD [facility] ([facility]) [address] [place], [place] [address]-204 5 02/13/2024 12:03:53 02/15/2024 09:32:04 Dysuria 25242123 R30.0 [id number] Lyn Marmolejo MD [facility] ([facility]) [address] [place], [place] [address] 5 02/13/2024 12:14:40 02/15/2024 11:11:53 Hyperlipidemia 11075691 E78.00 Dysuria 88860323 R30.0 Impaired mobility 915962 05 Z74.09 [id number] Lyn Marmolejo MD [facility]) [address] [place], [place] [address] 5 03/25/2024 12:47:12 03/28/2024 07:11:51 Atrial fibrillation 05008006 I48.91 [id number] Lyn Marmolejo MD [facility] ([facility]) [address] [place] [address] 5 03/25/2024 13:02:42 03/25/2024 14:26:32 Dysuria 36207768 R30.0 urine dip is normal will await micro. [id number] Lyn Marmolejo MD [facility] ([facility]) [address] [place], [place] 15[address]204 5 04/04/2024 08:10:41 04/09/2024 09:06:52 Atrial fibrillation 28171929 I48.91 Depressive disorder 6658 9007 F32.A will need med adjustment most likely. awaiting more info Hyperlipidemia 90872086 E78.00 Hypothyroidism 34934155 E03.9 Dementia 64188542 F03.90 stable and without worrisome behaviors/ intrusive fears etc. [id number] Lyn Marmolejo MD [facility] ([facility]) [address] [place], [place] [address]-204 5 04/17/2024 11:27:00 05/14/2024 13:15:51 Atrial fibrillation 60651589 I48.91 [id number] Lyn Marmolejo MD [facility] ([facility]) [address] [place] [address] 50942-343 5 05/19/2024 12:53:57 05/21/2024 22:28:15 Atrial fibrillation 24231362 I48.91 [id number] Lyn Marmolejo MD [facility]) [address] [place] [address] 63487-458 5 05/19/2024 13:28:05 05/20/2024 17:37:09 Constipation 35682187 K59.00 [id number] Lyn Marmolejo MD [facility]) [address] [place] [address] 35853-480 5 05/22/2024 13:52:36 05/26/2024 08:53:22 Atrial fibrillation 20026917 I48.91 [id number] Lyn Marmolejo MD [facility]) [address] [place] [address] 47186-389 5 05/27/2024 10:13:03 05/27/2024 15:56:07 Atrial fibrillation 66388523 I48.91 warfarin has been held for i bleeding will recheck today. History of mechanical prosthetic mitral valve replacement 223174090 Z95.2 Melena 2288260 K92.1 has resoled since holding warfarin [id number] Lyn Marmolejo MD [facility] ([facility]) [address] [place] [address] 87038-623 5 06/09/2024 14:51:03 06/11/2024 12:46:51 Atrial fibrillation 75397905 I48.91 warfarin has been held for i bleeding will recheck today. [id number] Lyn Marmolejo MD [facility] ([facility]) [address] [place] [address] 43641-481 5 07/04/2024 08:21:57 07/07/2024 13:50:59 Anxiety 13587927 F41.9 Depressive disorder 3548 9007 F32.A Hypothyroidism 20607091 E03.9 Chronic low back pain 27 0676209 M54.50 [id number] Lyn Marmolejo MD [facility] ([facility]) [address] [place] [address] 71881-472 5 08/07/2024 09:44:31 08/07/2024 13:32:53 Iron deficiency anemia 38499936 D50.9 Hypothyroidism 35662629 E03.9 Type 2 brenda betes mellitus 08082102 E11.9 Atrial fibrillation 4943 6004 I48.91 warfarin has been held for i bleeding will recheck today. [id number] Lyn Marmolejo MD [facility] ([facility]) [address] [place] [address] 41632-129 5 08/14/2024 13:17:46 08/14/2024 13:53:26 Right flank pain 668441751 R10.9 has greatly improved. will inquire about her bm frequency. [id number] Lyn Marmolejo MD [facility] ([facility]) [address] [place] [address] 21230-102 5 08/15/2024 14:56:42 08/16/2024 23:09:29 Atrial fibrillation 56676733 I48.91 warfarin has been held for i bleeding will recheck today. [id number] Lyn Marmolejo MD [facility] ([facility]) [address] [place] [address] 81892-629 5 09/05/2024 15:29:03 09/08/2024 14:47:15 Atrial fibrillation 39878124 I48.91 warfarin has been held for i bleeding will recheck today. [id number] Lyn Marmolejo MD [facility] ([facility]) [address] [place] [address] 83235-025 5 09/22/2024 13:56:04 09/24/2024 23:01:26 Atrial fibrillation 96652209 I48.91 warfarin has been held for i bleeding will recheck today. [id number] Lyn Marmolejo MD [facility] ([facility]) [address] [place] [address] 04285-065 5 10/02/2024 09:54:39 10/04/2024 06:10:42 Atrial fibrillation 45818626 I48.91 warfarin has been held for i bleeding will recheck today. [id number] Constantino Merlos DO [facility] ([facility]) [address] [place] [address] 53833-114 5 10/06/2024 15:26:43 10/06/2024 16:30:28 Dysuria 47988923 R30.0 Acute urin nhung tract infection 694704850 N39.0 I reviewed UA results and discussed with pt. We will start antibiotic s. Pt will increase oral fluids and can use cranberry. Return to office with no improvemen t or any problems. Go to ER with severe worsening or severe problems.W e will obtain urine culture [id number] Lyn Marmolejo MD [facility] ([facility]) [address] [place] [address] 25211-671 5 10/10/2024 08:00:57 10/27/2024 13:21:20 Anxiety 32497638 F41.9 Atrial fibrillation 4943 6004 I48.91 warfarin therapy Hyperlipidemia 39337255 E78.00 Hypothyroidism 26992835 E03.9 Disorder o f vitamin B12 086381058 E53.8 [id number] Lyn Marmolejo MD [facility] ([facility]) [address] [place] [address] 17579-990 5 10/28/2024 12:52:20 10/30/2024 11:20:46 Abdominal pain 80030611 R10.9 Chronic constipation 236 215508 K59.09 Warfarin m onitoring status 987440889 Z51.81 Vitamin B1 2 deficiency (non anemic) 74164606 E53.8 Iron deficiency 79752096 E61.1 [id number] Lyn Marmolejo MD [facility] ([facility]) [address] [place] [address] 73336-538 5 11/11/2024 09:45:45 11/11/2024 10:22:04 Fever 865191540 R50.9 COVID-19 274478663 U07.1 [id number] Lyn Marmolejo MD [facility] ([facility]) [address] [place] [address] 80785-710 5 11/13/2024 14:46:08 11/14/2024 12:19:12 History of mechanical prosthetic mitral valve replacement 260962058 Z95.2 [id number] Lyn Marmolejo MD [facility] ([facility]) [address] [place] [address] 21989-102 5 12/26/2024 14:59:56 12/29/2024 13:20:48 Atrial fibrillation 56653055 I48.91 warfarin therapy [id number] Lyn Marmolejo MD [facility] ([facility]) [address] [place] [address] 04007-040 5 01/02/2025 07:55:44 01/02/2025 16:44:05 Anxiety 75616945 F41.9 Atrial fibrillation 4943 6004 I48.91 warfarin therapy Benign ess ential hypertension 2595114 I10 Dementia 65705508 F03.90 stable and without worrisome behaviors/ intrusive fears etc. Frail elderly 355338453 R54 Hypothyroidism 29641514 E03.9 Moderate r ecurrent major depression 31650091 F33.1 Need for p [facility] care assistance [phone] 2978819 Z74.1 Hyperlipidemia 65186974 E78.00 Gastroesop hageal reflux disease 642351769 K21.9 Constipation 46180650 K5 9.00 Disorder o f vitamin B12 393935591 E53.8 b-12 lab with next blood draw [id number] SHARON WICK [facility] ([facility]) [address] [place] [address] 09049-579 5 01/07/2025 11:17:05 01/07/2025 12:46:26 Gastroesophageal reflux disease 144938014 K21.9 Return to BID dosing of pantoprazo le. Avoid all tomato based foods, carbonated drinks. Follow up with PCP. RTC with any new or worsening symptoms. [id number] Lyn Marmolejo MD [facility] ([facility]) [address] [place] [address] 36030-735 5 01/19/2025 14:42:57 01/20/2025 07:43:09 Atrial fibrillation 93433109 I48.91 warfarin therapy [id number] Lyn Marmolejo MD [facility] (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) [address] [place] [address] 59141-478 5 02/17/2025 12:58:21 03/09/2025 14:31:11 Dysuria 61182760 R30.0 03400 Black feces 261072968 K9 2.1 140066 d/c pepto bismol Epigastric pain 16918357 R10.13 35637 History of Helicobacter pylori infection 1732738226 6114437 Z86.19 2397707 [id number] Lyn Marmolejo MD [facility] ([facility]) [address] [place] [address] 32570-836 5 03/10/2025 13:39:29 03/11/2025 10:21:30 Atrial fibrillation 27767420 I48.91 warfarin therapy [id number] Lyn Marmolejo MD [facility] ([facility]) [address] [place], [place] 153505[address]204 5 03/16/2025 11:42:25 03/16/2025 15:49:30 Mean corpuscular volume above reference range 652522128 R71.8 [id number] Lyn Marmolejo MD [facility] ([facility]) [address] [place] [address] 51756-998 5 04/03/2025 08:43:13 04/07/2025 07:54:01 Atrial fibrillation 71289054 I48.91 warfarin therapy Benign ess ential hypertension 2730723 I10 Hyperlipidemia 61246011 E78.00 Hypothyroidism 14167418 E03.9 Iron defic iency anemia 32293251 D50.9 Difficulty walking 35563 2002 R26.2 56225 Does mobil ize using walker 814757669 Z99.89 54967351 [id number] Lyn Marmolejo MD [facility] ([facility]) [address] [place] [address] 28896-628 5 05/07/2025 11:08:19 05/08/2025 11:02:05 Atrial fibrillation 75076438 I48.91 warfarin therapy [id number] Lyn Marmolejo MD [facility] ([facility]) [address] [place] [address] 73636-012 5 05/18/2025 13:36:52 05/19/2025 13:07:58 Atrial fibrillation 95354139 I48.91 warfarin therapy [id number] SHARON HARDIN [facility] ([facility]) [address] [place] [address] 28416-032 5 05/27/2025 10:23:37 05/27/2025 11:20:20 Abdominal mass 370678212 R19.00 66728933 Sent to ER for CT scan to r/o strangulat ed hernia to right inguinal region. 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 [id number] Lyn Marmolejo MD [facility] ([facility]) [address] [place] [address] 75129-078 5 06/05/2025 11:28:33 06/08/2025 12:35:39 Hypothyroidism 97842401 E03.9 Viral screening 52788171 4 Z11.59 2725401 Physical examination 588 0005 Z00.00 226666 Long-term current use of drug therapy 564860623 Z79.144 1739594 [id number] Lyn Marmolejo MD [facility] ([facility]) [address] [place] [address] 34794-043 5 06/11/2025 10:52:49 06/12/2025 12:43:36 Hypercalcemia 06338120 E83.52 [id number] Lyn Marmolejo MD [facility] ([facility]) [address] [place] [address] 23065-515 5 06/24/2025 12:18:01 06/30/2025 13:41:59 Hyperparathyroidism 47273998 E21.3 41182 corrected and ionized calcium are normalgfr 52 and stable Vitamin D deficiency 347 81927 E55.9 05250 [id number] Lyn Marmolejo MD [facility] ([facility]) [address] [place] [address] 80607-738 5 07/01/2025 10:24:23 07/02/2025 11:29:38 Atrial fibrillation 49119792 I48.91 warfarin therapy [id number] Lyn Marmolejo MD [facility] ([facility]) [address] [place] [address] 15109-967 5 07/03/2025 08:14:55 07/13/2025 10:06:37 Benign essential hypertension 4343861 I10 Coronary atherosclerosis 273147163 I25.119 Atrial fibrillation 4943 6004 I48.91 warfarin therapyd/c naproxen d/t hx of bleeding Hyperlipidemia 91220696 E78.00 Hypothyroidism 94940148 E03.9 Hyperparathyroidism 6699 9008 E21.3 03340 [id number] Lyn Marmolejo MD [facility] ([facility]) [address] [place], [place] 153505-204 5 07/06/2025 11:22:40 07/07/2025 09:33:46 History of mechanical prosthetic mitral valve replacement 819342115 Z95.2 [id number] Lny Marmolejo MD [facility] ([facility]) [address] [place], [place] 153505-204 5 07/09/2025 13:42:58 07/10/2025 14:24:59 Atrial fibrillation 56630823 I48.91 warfarin therapyd/c naproxen d/t hx of bleeding [id number] Lyn Marmolejo MD [facility] ([facility]) [address] [place], [place] 15350[address]-204 5 07/14/2025 13:52:08 07/15/2025 10:22:44 Dysuria 30934419 R30.0 [id number] will call with ua results [id number] Lyn Marmolejo MD [facility] ([facility]) [address] [place], [place] 153505-204 5 07/16/2025 12:05:46 07/17/2025 11:01:38 Atrial fibrillation 13693266 I48.91 warfarin therapyd/c naproxen d/t hx of bleeding [id number] Lyn Marmolejo MD [facility] ([facility]) [address] [place], [place] 153505-204 5 07/23/2025 11:35:38 07/24/2025 12:08:17 Atrial fibrillation 04397975 I48.91 warfarin therapyd/c naproxen d/t hx of bleeding [id number] Lyn Marmolejo MD [facility] ([facility]) [address] [place], [place] [address]87[address]-204 5 07/30/2025 11:32:37 07/31/2025 09:44:15 History of mechanical prosthetic mitral valve replacement 068725774 Z95.2 [id number] Lyn Marmolejo MD [facility] ([facility]) [address] [place] [address] 38849-620 5 08/04/2025 10:06:02 08/04/2025 15:14:44 Right cervical root neuropathy 0478333756 4819750 M54.12 05385429 Pain of ri t shoulder region 3885010487 M25.511 18487212 [id number] Lyn Marmolejo MD [facility] [facility]) [address] [place] [address] 01232-074 5 08/07/2025 11:39:45 08/10/2025 10:28:08 Atrial fibrillation [id number] I48.91 warfarin therapyd/c naproxen d/t hx of bleeding [id number] Lyn Marmolejo MD [facility] ([facility]) [address] [place] [address] [phone] 5 08/17/2025 13:17:17 08/18/2025 09:51:22 History of mechanical prosthetic mitral valve replacement [id number] Z95.2 Mean corpu scular volume above reference range 781211652 R71.8 [id number] Hypercalcemia 34518380 E 83.52 9955 Drug therapy finding 309 775735 Z79.899 [id number] Generalize d anxiety disorder 64017027 F41.1 [id number] Lyn Marmolejo MD [facility] ([facility]) [address] [place] [address] 95485-083 5 09/02/2025 13:16:47 09/03/2025 10:16:00 History of mechanical prosthetic mitral valve replacement [id number] Z95.2 [id number] Lyn Marmolejo MD [facility] ([facility]) [address] [place] [address] [phone] 5 09/09/2025 09:58:14 09/10/2025 09:52:18 Benign essential hypertension 3091048 I10 [id number] Lyn Marmolejo MD [facility] ([facility]) [address] [place] [address] [phone] 5 09/17/2025 13:22:57 09/18/2025 10:36:49 Atrial fibrillation 33863040 I48.91 warfarin therapyd/c naproxen d/t hx of bleeding [id number] Lyn Marmolejo MD [facility] ([facility]) [address] [place] [address] 71405-273 5 10/02/2025 07:57:06 10/07/2025 10:51:15 Benign essential hypertension 1090033 I10 Coronary atherosclerosis 179284705 I25.119 Atrial fibrillation 4943 6004 I48.91 Hyperlipidemia 69689565 E78.00 Hypothyroidism 48025964 E03.9 Hyperparathyroidism 6699 9008 E21.3 [id number] Lyn Marmolejo MD [facility] ([facility]) [address] [place] [address] 73962-072 5 10/08/2025 15:40:56 10/09/2025 09:52:26 Benign essential hypertension 2500207 I10 [id number] Lyn Marmolejo MD [facility] ([facility]) [address] [place] [address] [phone] 5 10/09/2025 11:15:20 10/12/2025 09:29:00 Atrial fibrillation 15243127 I48.91 Health Concerns Section Related Observation LastModified by Organization Detai ls LastModified Time None Recorded Concern Status LastModified by Organization Details LastModified Time None Recorded Advance Directives Directive None Recorded Payers Insurance Date Sequence Insurance Name Policy Number Policy Hernandez Covered Member ID Hernandez Member ID Guarantor Name 09/29/2025 [place] [facility] Odilia Ulloa [id number] Odilia Ulloa 09/29/2025 2 [place] Odilia Ulloa [id number] Odilia Ulloa 10/08/2025 1 [place] - [place] [id number] Odilia Ulloa [id number] Odilia Ulloa Notes Date Note Type Note Provider Name and Address Organization Details Recorded Time 10/02/2025 text/html Hypertension IM/FMReported by PatientHPIFor associated symptoms, patient reportschest pain (has been to the er and was evaluated. all was normal. nitro relieves). For severity, patient reportsnormal (<120/<80 mmhg). For duration, patient reportshtn present for ___ years. For onset/timing, patient reportsgradual onset. For self care, patient reportsnon-smoker. HypothyroidReported by PatientHPIFor duration, patient reports>12 months. For treatment, patient reportstaking medication as prescribedandlast tsh level: 0.81.ROS as noted in the HPI Patient seen today by Dr. Marmolejo at [facility] Lyn Marmolejo MD [address] [place] [address], [phone], [facility], [place] 10/06/2025 13:19:04 OBGyn Episode No OBEpisode recorded.
--- OUTSIDE RECORDS SUMMARY | 2025-10-14 20:04 | XMS_ITS | Encounter Summary ---
Author Organization [facility] Address [address] [place] [address] Care Team Providers Care Faculty Administrator Name Role Phone Rico Muñiz MD, Sharan Jaime Primary Care Provider Encounter Details Date Type Department Care Team (Latest Contact Info) Description 03/09/2003 Outpatient Historical [facility] 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
--- OUTSIDE RECORDS SUMMARY | 2025-10-14 20:04 | XMS_ITS | Encounter Summary ---
Author Organization [facility] Address [address] [facility] Attn: [place] [address] Care Team Providers Care Blankbook Forwarder Name Role Phone Rico Muñiz MD, Sharan Jaime Primary Care Provider Encounter Details Date Type Department Care Team (Late st Contact Info) Description 04/23/2002 Outpatient Historical Sharan Gómez Jr., MD [address] [place] [address] Social History Tobacco Use Types Packs/Day Years Used Date Smoking Tobacco: Never Assessed Comments Unknown Sex and Gender Information Value Date Recorded Sex Assigned at Not on file 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
--- OUTSIDE RECORDS SUMMARY | 2025-10-14 20:04 | XMS_ITS | Encounter Summary ---
Author Organization [facility] Address [address] [place] [address] Care Team Providers Care Plastic Surgery Nurse Name Role Phone Rico Muñiz MD, Sharan Jaime Primary Care Provider Encounter Details Date Type Department Care Team (Latest Contact Info) Description 04/23/2002 Outpatient Historical [facility] Sharan Gómez Jr., MD [address] [place] [address] Pure hypercholesterolem (Primary Dx); HYPERCALCEMIA Social History Tobacco Use Types Packs/Day Years Used Date Smoking Tobacco: Never Assessed Comments Unknown Sex and Gender Information Value Date Recorded Sex Assigned at Not on file 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
--- OUTSIDE RECORDS SUMMARY | 2025-10-14 20:04 | XMS_ITS | Encounter Summary ---
Author Organization [facility] Address [address] [facility] [address] Attn: Epic Prelude ADT [place] [address] Care Team Providers Care Mechanical Equipment Test Engineer Name Role Phone Rico Muñiz MD, Sharan Jaime Primary Care Provider Encounter Details Date Type Department Care Team (Late st Contact Info) Description 07/23/2002 Outpatient Historical Екатерина Malone MD [address] [place] [phone] Social History Tobacco Use Types Packs/Day Years Used Date Smoking Tobacco: Never Assessed Comments Unknown Sex and Gender Information Value Date Recorded Sex Assigned at Not on file Legal Sex Female 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
--- OUTSIDE RECORDS SUMMARY | 2025-10-14 20:04 | XMS_ITS | Encounter Summary ---
Author Organization [facility] Address [address] [place] [address] Care Team Providers Care Boxing Inspector Name Role Phone Rico Muñiz MD, Sharan Jaime Primary Care Provider Encounter Details Date Type Department Care Team (Latest Contact Info) Description 06/24/2002 Outpatient Historical [facility] [address] [place] [address] Serge Arrington MD [address] [place] [address] Mitral valve disorder (Primary Dx); CORONARY ATHEROSCLER UNSPEC VESSEL; HYPERTENSION NOS; HYPERLIPIDEMIA NEC/NOS Social History Tobacco Use Types Packs/Day Years Used Date Smoking Tobacco: Never Assessed Comments Unknown Sex and Gender Information Value Date Recorded Sex Assigned at Not on file Legal Sex Female 5:42 AM CREW LEADER GLUING Gender Identity Not on file Sexual Orientation Not on file documented as of this encounter Plan of Treatment Not on file documented as of this encounter Visit Diagnoses Diagnosis Mitral valve disorder- Primary Mitral valve disorders Coronary atherosclerosis of unspecified type of vessel, [place] or graft Unspecified essential hypertension Other and unspecified hyperlipidemia documented in this encounter Care Teams Boxing Inspector Relationship Specialty Start Date End Date Sharan Gómez Jr., MD [address] [place] [phone] PCP - General 08/10/05 documented as of this encounter
--- OUTSIDE RECORDS SUMMARY | 2025-10-14 20:04 | XMS_ITS | Encounter Summary ---
Author Organization [facility] Address [address] [place] [address] Care Team Providers Care Veneer Stock Grader Name Role Phone Rico Muñiz MD, Sharan Jaime Primary Care Provider Encounter Details Date Type Department Care Team (Latest Contact Info) Description 06/26/2003 Outpatient Historical [facility] [place] [address] [place] [address] Serge Arrington MD [address] [place] [address] HYPERTENSION NOS (Primary Dx); Routine medical exam Social History Tobacco Use Types Packs/Day Years Used Date Smoking Tobacco: Never Assessed Comments Unknown Sex and Gender Information Value Date Recorded Sex Assigned at Not on file Legal Sex Female 5:42 AM CRITICAL CARE PHYSICIAN ASSISTANT Gender Identity Not on file Sexual Orientation Not on file documented as of this encounter Plan of Treatment Not on file documented as of this encounter Visit Diagnoses Diagnosis Unspecified essential hypertension- Primary Routine medical exam Routine general medical examination at a health care facility documented in this encounter Care Teams Veneer Stock Grader Relationship Specialty Start Date End Date Sharan Gómez Jr., MD [address] [place] [address] PCP - General 08/10/05 documented as of this encounter
--- OUTSIDE RECORDS SUMMARY | 2025-10-14 20:04 | XMS_ITS | Continuity of Care Document ---
Author Organization DAI Haas [facility], [place], [facility] ([facility]) Address [address] [place] [address] Care Team Providers Care Rock Star Name Role Phone LYN MARMOLEJO Primary Care Provider [phone] Assessment No assessment recorded. Plan of Treatment Reminders Order Date Submit Date Provider Last Modified By Organization Details Last Modified Time Details Appointments None record ed. Lab PT/INR 025 08/07/20 QUENTIN [facility]), [address] [place], [address], 11:56:37 Referral None record ed. Procedures None record ed. Surgeries None record ed. Imaging None record ed. Medication Orders None record ed. Patient TargetsNo targets recorded. Patient InstructionsNo instructions recorded. Reason for Referral None Reported. Results Created Date Observation Date Name Description Value Unit Range Abnormal Flag Note LastModifiedBy Organization Detail LastModifiedTime 07/09/2007/09/2025 PT/IN R Protime 34.6 Not Available [facility]) [address] [place], [address], 07/09/2025 13:44:17 07/09/20 25 07/09/2025 PT/IN R INR 2.9 Not Available [facility] ([facility]) [address] [place], [address], 07/09/2025 13:44:17 09/1607/14/2025 URINA LYSIS WITH MICRO color YELLOW Not Available [facility] [address], [place], [address], 07/14/2025 14:52:32 07/14/20 25 07/14/2025 URINA LYSIS WITH MICRO clarity CLEAR Not Available [facility] [address], [place], [address], 07/14/2025 14:52:32 07/14/2007/14/2025 URINA LYSIS WITH MICRO glu NEGATI VE Not Available [facility] [address], [place], [address], 07/14/2025 14:52:32 07/14/20 25 07/14/2025 URINA LYSIS WITH MICRO bili NEGATI VE Not Available [facility] [address], [place], [address], 07/14/2025 14:52:32 07/14/20 25 07/14/2025 URINA LYSIS WITH MICRO ket NEGATI VE Not Available [facility] [address], [place], [address], 07/14/2025 14:52:32 07/14/20 25 07/14/2025 URINA LYSIS WITH MICRO S.g 1.010 1.005- 1.025 Not Available [facility] [address], [place], [address], 07/14/2025 14:52:32 07/14/20 25 07/14/2025 URINA LYSIS WITH MICRO pH 5.0 5.0-7. 0 Not Available [facility] [address], [place], [address], 07/14/2025 14:52:32 07/14/20 25 07/14/2025 URINA LYSIS WITH MICRO pro NEGATI VE Not Available [facility] [address], [place], [address], 07/14/2025 14:52:32 07/14/20 25 07/14/2025 URINA LYSIS WITH MICRO uro 0.2 E.U./D L Not Available [facility] [address], [place], [address], 07/14/2025 14:52:32 07/14/20 25 07/14/2025 URINA LYSIS WITH MICRO nit NEGATI VE Not Available [facility] [address], [place], [address], 07/14/2025 14:52:32 07/14/20 25 07/14/2025 URINA LYSIS WITH MICRO blo NEGATI VE Not Available [facility] [address], [place], [address], 07/14/2025 14:52:32 07/14/20 25 07/14/2025 URINA LYSIS WITH MICRO jose elias NEGATI VE Not Available [facility] [address], [place], [address], 07/14/2025 14:52:32 07/14/20 25 07/14/2025 URINA LYSIS WITH MICRO WBC 0-1 abnormal Not Available [facility] [address], [place], [address], 07/14/2025 14:52:32 07/14/20 25 07/14/2025 URINA LYSIS WITH MICRO RBC NEGATI VE Not Available [facility] [address], [place], [address], 07/14/2025 14:52:32 07/14/20 25 07/14/2025 URINA LYSIS WITH MICRO epi cells 1-2 abnormal Not Available [facility] [address], [place], [address], 07/14/2025 14:52:32 07/14/20 25 07/14/2025 URINA LYSIS WITH MICRO bacteria 1-2 HYALIN E CAST abnormal Not Available [facility] [address] [facility] [address], [place], [address], 07/14/2025 14:52:32 07/14/20 25 07/14/2025 URINA LYSIS WITH MICRO other NEG Not Available [facility] [address], [place], [address], 07/14/2025 14:52:32 07/14/2007/16/2025 CULTU RE, URINE , ROUTI NE culture, urine, routine SEE NOTE CULTU RE, URINE , ROUTI NE Micro Numbe r: [id number] Test Statu s: Final Speci men Sourc e: Urine Speci men Quali ty: Adequ ate Resul t: No Growt h Not Available [place] [address] [place], [address], 07/16/2025 02:51:13 07/17/2007/17/2025 PT/IN R Protime 34.4 Not Available [facility] ([facility]) [address] [place], [address], 07/16/2025 12:07:15 07/17/2007/17/2025 PT/IN R INR 2.9 Not Available [facility] ([facility]) [address] [place], [address], 07/16/2025 12:07:15 07/23/2007/23/2025 PT/IN R Protime 47.0 Not Available [facility] ([facility]) [address] [place], [address], 07/23/2025 11:36:06 07/23/2007/23/2025 PT/IN R INR 3.9 Not Available [facility] ([facility]) [address] [place], [address], 07/23/2025 11:36:06 07/30/2007/30/2025 PT/IN R Protime 30.2 Not Available [facility] ([facility]) [address] [place], [address], 07/30/2025 11:33:15 07/30/2007/30/2025 PT/IN R INR 2.5 Not Available [facility] ([facility]) [address] [place], [address], 07/30/2025 11:33:15 08/07/2008/07/2025 PT/IN R Protime 26.3 Not Available [facility] ([facility]) [address] [place], [address], 08/07/2025 11:40:14 08/07/2008/07/2025 PT/IN R INR 2.2 Not Available [facility] ([facility]) [address] [place], [address], 08/07/2025 11:40:14 08/05/2008/04/2025 XR, cervi luisito spine , 2 or 3 view No observ ation record ed. [facility] [place] [address] [place], [address], 08/07/2025 13:25:55 08/05/2008/04/2025 XR, shoul vito, 2 or more view No observ ation record ed. [facility] [place] [address] [place], [address], 08/07/2025 13:25:55 09/09/20 25 09/08/2025 US, echoc ardio gram, trans thora cic, compl ete, w/ color flow No observ ation record ed. QUENTIN [facility] [address] [place], [address], 09/11/2025 09:19:21 09/15/2009/15/2025 MAMMO , scree ilya, digit al, bilat eral No observ ation record ed. jordy [facility] [address] [place], [address], 09/16/2025 16:09:54 Result Notes None recorded. Problems Name Problem SNOMED Code Status Onset Date Resolution Date Notes Provider Name and Address Organization Details Recorded Time Depressi ve disorder 40461691 Completed 202010/14/2021 Depressi on - Status is Inactive ; 10/14/20 11:08AM by Maryellen Marmolejo PA-C, Annotati on/Adden dum; Promoted ; acuity set as *; FELISHA hamilton [facility] 5 07:56:57 Herpes zoster 5275297 Completed 202201/02/2025 SHINGLES FELISHA hamilton, [facility] 5 07:56:03 Dysthymi a 38112977 Active 2022 DEPRESSI ON WITH ANXIETY FELISHA hamilton [facility] 5 07:55:28 Benign essentia l hyperten jovanni 3897668 Active 2022 FELISHA hamilton [facility] 5 07:55:28 Gastroes ophageal reflux disease 510021164 Active 2022 FELISHA hamilton [facility] 5 07:55:28 Fracture of upper end of humerus 313478396 Completed 202201/02/2025 CLOSED FRACTURE OF PROXIMAL END OF RIGHT HUMERUS, SEQUELA FELISHA hamilton, [facility] 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 5 07:56:22 Atrial fibrilla tion 45035452 Active 2022 FELISHA hamilton, [facility] 3 14:45:05 Coronary atherosc lerosis 917454115 Active 2022 bare metal stents to circ and LAD 2011 FELISHA hamilton, [facility] 3 14:46:30 Iron deficien cy anemia 58073616 Active 2022 FELISHA hamilton, [facility] 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 14:45:59 Anxiety 55041468 [facility] 20[facility] 14:46:54 Viral hepatiti s C 89211074 Active 2022 FELISHA hamilton, [facility] 5 07:55:28 Moderate recurren t major depressi on 30255877 Active 2023 FELISHA hamilton, [facility] 5 07:55:28 Need for personal care assistan ce 42060414519 059072 Active 2023 FELISHA hamilton [facility] 5 07:55:28 Frail elderly 790411197 Active 2023 FELISHA DESIR null, [facility] 5 07:55:28 Seasonal allergic rhinitis 893514894 Active 2023 FELISHA DESIR null, [facility] 5 07:55:28 Chronic pain 06262831 Active 2023 FELISHA DESIR null, [facility] 5 07:55:28 Dementia 75895012 Active 2023 FELISHA DESIR null, [facility] 5 07:55:28 Constipa tion 67905220 Active 2023 FELISHA DESIR null, [facility] 5 07:55:44 Hyperlip idemia 30516079 Active 2024 FELISHA DESIR null, [facility] 5 07:59:38 Occult blood detected in feces 09183025 Active 2024 FELISHA DESIR null, [facility] 5 09:13:35 Mean corpuscu lar volume above referenc e range 810547859 Active 2024 FELISHA DESIR null, [facility] 5 09:14:07 Hypercal cemia 10292653 Active 2024 FELISHA DESIR null, [facility] 5 10:07:49 Vitamin D deficien cy 91560036 Active 2024 Lyn Marmolejo MD [address] [place] [address], [address], [facility] 5 12:54:55 Hyperpar athyroid ism 93397036 Active 2024 Lyn Marmolejo MD [address] [place], [address], [facility] 5 12:54:56 Dysuria 21976161 Active 2024 Dotty Celis null, [facility] 5 14:08:08 Problem Notes None recorded. Procedures Surgical History Date Name Laterality Status Provider Name and Address Organization Details Recorded Time 2024 Most Recent Mammogram completed FELISHA DESIR [facility] 5 16:09:39 2024 esophagogastroduodenoscopy completed YANELIS WELSH [facility] 5 12:23:16 2024 colonoscopy completed FELISHA [facility] 5 10:20:11 2023 esophagogastroduodenoscopy completed KIARA DUCKWORTH [facility] 4 12:40:14 2023 colonoscopy completed Lyn Marmolejo MD [address] [place], [address], [facility] 5 10:19:30 cholecystectomy completed FELISHA [facility] 3 14:48:40 replacement of mitral valve complete d FELISHA [facility] 3 14:49:22 [facility] 15:14:43 Imaging Results None recorded. Procedure Notes None recorded. Medical Equipment None Reported. Allergies Allergen ID Allergen Name Allergen Category Reaction Reaction Severity Criticality Documentation Date Start Date Code Code System Note Provider Name and Address Organization Details Recorded Time 1376 morphine medicatio n Not available Not available Not available 02/07/2023 7052 RxNorm Dotty Celis [facility] 3 10:45:47 1377 diltiazem Not available Not available Not available Not available 02/07/2023 3443 RxNorm Dotty Sharmaoch [facility] 3 10:45:54 4552 Bactrim medicatio n other severe high 04/17/2023 59186 9 RxNorm do not give d/t couma din Lola Marcy [facility] 4 13:34:33 28495 diltiazem hydrochlo ride medicatio n Not available Not available Not available 05/26/202300604 1 RxNorm Comme nt: Recor ded 12/29 7:56A M by Yanelis Kitchen on, TRANSFORMER ASSEMBLER, 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 ; Promo talib; Signi fican ce: *; Reaso n: Drug aller gy; ; [facility] 12:26:44 04102 morphine sulfate medicatio n Not available Not available Not available 05/26/2023 71026 RxNorm Comme nt: Recor ded 12/29 7:56A M by Yanelis Kitchen on, TRANSFORMER ASSEMBLER, 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 ; Promo talib; Signi fican ce: *; Reaso n: Drug aller gy; ; [facility] 12:26:48 Medications Name Sig Start [...] 01/02/20 3:43PM by Felisha Desir LPN (Authori pushpad through Lyn Marmolejo MD), Refill Request; Refill Quantity : 30; Tablet; Not Available Not Available Not Available fiber 06/08 completed Not Available Not Available Not Available [facility] Levothyro xine Sodium daily 06/08 completed 67678; Recorded 01/09/20 6:06PM by Sihrley Quevedo (Authori zed through Travis Sousa MD), [...] History Question Answer Notes LastModified by Organizat CSD[facility] Details LastModified Time Tobacco Smoking Status Former Smoker FELISHA hamilton [facility] 04/17/2023 14:48:01 What Was The Date Of Your Most Recent Tobacco Screening? 05/27/2025 [email or web address] Information not available 05/27/2025 Sex: Unknown Functional Status Question Answer Note LastModified by Organizat [facility] Details LastModified Time Do you use any illicit or recreational drugs? No [email or web address] Information not available 04/17/2023 Do you or have you ever used any other forms of tobacco or nicotine? No [email or web address] Information not available 06/29/2023 What is your level of alcohol consumption? None [email or web address] Information not available 04/17/2023 Mental Status None recorded. Family History Relationship Description Onset Age of this Age Resolved Age Notes LastModified by Organization Details LastModified Time Unspecified Relation Coronary atherosclero sis [email or web address] Not available 06/29 15:13:48 Medical History No medical history recorded. Gynecological History Statement/Question Response Most Recent Mammogram 09/15/2025 Obstetrics History GPAL:G 0 P 0 0 0 0 Immunizations Vaccine Type Date Status Note Provider Nam e and Address Organization Details Recorded Time Influenza, MDCK, quadrivalent, PF 2 completed FELISHA hamilton [facility] 10/10/2024 08:38:58 COVID-19, mRNA, LNP-S, PF, 100 mcg/0.5mL dose or 50 mcg/0.25mL dose 1 completed FELISHA hamilton [facility] 10/10/2024 08:38:58 COVID-19, mRNA, LNP-S, PF, 100 mcg/0.5mL dose or 50 mcg/0.25mL dose 1 completed [facility] 10/10/2024 08:38:58 COVID-19, mRNA, LNP-S, PF, 100 mcg/0.5mL dose or 50 mcg/0.25mL dose 2 completed FELISHA hamilton, [facility] 10/10/2024 08:38:58 Pneumococcal conjugate PCV20, polysaccharide KNT175 conjugate, adjuvant, PF 3 completed [facility] 10/10/2024 08:38:58 COVID-19, mRNA, LNP-S, bivalent, PF, 50 mcg/0.5 mL or 25mcg/0.25 mL dose 3 completed FELISHA hamilton, [facility] 10/10/2024 08:38:58 pneumococcal polysaccharide PPV23 3 completed [facility] 04/17/2023 12:02:00 Tdap 1 completed FELISHA hamilton, [facility] 10/10/2024 08:38:58 Influenza, split virus, trivalent, PF 3 completed FELISHA hamilton, [facility] 04/17/2023 12:02:00 influenza, split (incl. purified surface antigen) 0 completed FELISHA DESIR [facility] 04/17/2023 12:02:00 Hep A, adult 1 completed FELISHA hamilton [facility] 10/10/2024 08:38:58 Hep A, adult 9 completed FELISHA DESIR null, [facility] 10/10/2024 08:38:58 Influenza, split virus, quadrivalent, PF 1 completed FELISHA DESIR null, [facility] 10/10/2024 08:38:58 Influenza, split virus, quadrivalent, PF 9 completed FELISHA DESIR null, [facility] 10/10/2024 08:38:58 Influenza, MDCK, trivalent, PF 4 completed FELISHA DESIR null, [facility] 10/10/2024 08:38:58 Influenza, MDCK, quadrivalent, preservative 3 completed FELISHA DESIR null, [facility] 10/10/2024 08:38:58 pneumococcal polysaccharide PPV23 8 completed Lola Vidal null, [facility] 07/02/2024 08:41:52 Influenza, split virus, quadrivalent, PF 8 completed Lola Vidal null, [facility] 07/02/2024 08:41:52 zoster recombinant 3 completed Lola Vidal null, [facility] 07/02/2024 14:52:40 COVID-19, mRNA, LNP-S, PF, 50 mcg/0.5 mL 4 completed FELISHA DESIR null, [facility] 10/10/2024 08:38:58 Influenza, MDCK, trivalent, preservative 4 completed FELISHA DESIR null, [facility] 10/10/2024 08:38:58 Influenza, high-dose, trivalent, PF 5 completed Not Available [facility] 10/13/2025 09:55:50 Past Encounters Encounter ID Performer Location Encounter Start Date Encounter Closed Date Diagnosis/Indication Diagnosis SNOMED-CT Code Diagnosis ICD10 Code Diagnosis IMO Codes Diagnosis Note [id number] Lyn Marmolejo MD [facility] ([facility]) [address] [place] [address] 07/09/2025 13:42:58 07/10/2025 14:24:59 Atrial fibrillation 54689039 I48.91 warfarin therapyd/c naproxen d/t hx of bleeding [id number] Lyn Marmolejo MD [facility] ([facility]) [address] [place], [place] [address] 07/14/2025 13:52:08 07/15/2025 10:22:44 Dysuria 96392589 R30.0 [id number] will call with ua results [id number] Lyn Marmolejo MD [facility]) [address] [place], [place] [address] 07/16/2025 12:05:46 07/17/2025 11:01:38 Atrial fibrillation 15131608 I48.91 warfarin therapyd/c naproxen d/t hx of bleeding [id number] Lyn Marmolejo MD [facility] ([facility]) [address] [place] [address] 07/23/2025 11:35:38 07/24/2025 12:08:17 Atrial fibrillation 07382247 I48.91 warfarin therapyd/c naproxen d/t hx of bleeding [id number] Lyn Marmolejo MD [facility] ([facility]) [address] [place] [address] 07/30/2025 11:32:37 07/31/2025 09:44:15 History of mechanical prosthetic mitral valve replacement 099472499 Z95.2 [id number] Lyn Marmolejo MD [facility] ([facility]) [address] [place] [address] 08/04/2025 10:06:02 08/04/2025 15:14:44 Right cervical root neuropathy 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 7043428 M54.12 30839818 Pain of ri ght shoulder region 4415896404 M25.511 [id number] Lyn Marmolejo MD [facility] ([facility]) [address] [place] [address] 08/07/2025 11:39:45 08/10/2025 10:28:08 Atrial fibrillation 95232741 I48.91 warfarin therapyd/c naproxen d/t hx of bleeding Health Concerns Section Related Observation LastModified by Organization Detai ls LastModified Time None Recorded Concern Status LastModified by Organization Details LastModified Time None Recorded Payers Encounter Date Sequence Insurance Name Policy Number Policy Hernandez Covered Member ID Hernandez Member ID Guarantor Name 08/07/2025 1 [place]ANT[place] - PPO) [id number] Odilia Ulloa [id number] Odilia Ulloa 08/07/2025 2 [place] Odilia Ulloa [id number] Odilia Ulloa OBGyn Episode No OBEpisode recorded.
--- OUTSIDE RECORDS SUMMARY | 2025-10-14 20:04 | XMS_ITS | Encounter Summary ---
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
--- OUTSIDE RECORDS SUMMARY | 2025-10-14 20:05 | XMS_ITS | Encounter Summary ---
Author Organization [facility] Address [address] [place] [address] Care Team Providers Care Biology Laboratory Assistant Name Role Phone Rico Muñiz MD, Sharan Jaime Primary Care Provider Encounter Details Date Type Department Care Team (Latest Contact Info) Description 10/15/1998 Outpatient Historical [facility] Sharan Gómez Jr., MD [address] [place] [address] Unspecified essential hypertension (Primary Dx); Hypopotassemia; jail (current) use of anticoagulants Social History Tobacco Use Types Packs/Day Years Used Date Smoking Tobacco: Never Assessed Comments Unknown Sex and Gender Information Value Date Recorded Sex Assigned at Not on file Legal Sex Female 5:42 AM PERSONNEL ASSISTANT Gender Identity Not on file Sexual Orientation Not on file documented as of this encounter Plan of Treatment Not on file documented as of this encounter Visit Diagnoses Diagnosis Unspecified essential hypertension- Primary Hypopotassemia jail (current) use of anticoagulants Long-term (current) use of anticoagulants documented in this encounter Care Teams Biology Laboratory Assistant Relationship Specialty Start Date End Date Sharan Gómez Jr., MD [address] [place] [address] PCP - General 08/10/05 documented as of this encounter
--- OUTSIDE RECORDS SUMMARY | 2025-10-14 20:05 | XMS_ITS | Encounter Summary ---
Author Organization [facility] Address [address] [place] [address] Care Team Providers Care Appliance Worker Name Role Phone Rico Muñiz MD, Sharan Jaime Primary Care Provider Encounter Details Date Type Department Care Team (Latest Contact Info) Description 06/29/[address] [facility] Int Luis AFaisal Lopez [facility] [address] [place] [address] Serge Arrington MD [address] [place] [address] Mitral valve disorder (Primary Dx); HYPERTENSION NOS; HYPERLIPIDEMIA NEC/NOS; OSTEOPOROSIS NOS Social History Tobacco Use Types Packs/Day Years Used Date Smoking Tobacco: Never Assessed Comments Unknown Sex and Gender Information Value Date Recorded Sex Assigned at Not on file Legal Sex Female 5:42 AM SENIOR PRODUCER Gender Identity Not on file Sexual Orientation Not on file documented as of this encounter Plan of Treatment Not on file documented as of this encounter Visit Diagnoses Diagnosis Mitral valve disorder- Primary Mitral valve disorders Unspecified essential hypertension Other and unspecified hyperlipidemia Osteoporosis, unspecified documented in this encounter Care Teams Appliance Worker Relationship Specialty Start Date End Date Sharan Gómez Jr., MD [address] [place] [phone] PCP - General 08/10/05 documented as of this encounter
--- OUTSIDE RECORDS SUMMARY | 2025-10-14 20:05 | XMS_ITS | Encounter Summary ---
Author Organization [facility] Address [address] [place] [address] Care Team Providers Care Hansard Reporter Name Role Phone Rico Muñiz MD, Sharan Jaime Primary Care Provider Encounter Details Date Type Department Care Team (Latest Contact Info) Description 02/04/2007 Outpatient Historical [facility] Int Luis AFaisal Lopez [address] [place] [address] Serge Arrington MD [address] [place] [address] Unspecified Essential Hypertension (Primary Dx); Mitral Valve Disorder; Other and Unspecified Hyperlipidemia Social History Tobacco Use Types Packs/Day Years Used Date Smoking Tobacco: Never Assessed Comments Unknown Sex and Gender Information Value Date Recorded Sex Assigned at Not on file Legal Sex 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
--- OUTSIDE RECORDS SUMMARY | 2025-10-14 20:05 | XMS_ITS | Continuity of Care Document ---
Author Organization DAI Valentine [facility] ([facility]) Address [address] [place] [address] Care Team Providers Care Employee Benefits Coordinator Name Role Phone LYN MARMOLEJO Primary Care Provider Assessment No assessment recorded. Plan of Treatment Reminders Order Date Submit Date Provider Last Modified By Organization Details Last Modified Time Details Appointments None recorded. Lab None recorded. Referral None recorded. Procedures None recorded. Surgeries None recorded. Imaging XR, cervical spine, 2 or 3 view - flexion/ex tension views [address]), [address] [place], [address], 15:14:44 XR, shoulder, 2 or more view [address]), [address] [place], [address], 15:14:44 Medication Orders Medrol (Chema) 4 mg tablets in a dose pack 2024 [facility], [address] [place] [address], [address], 14:26:13 Patient TargetsNo targets recorded. Patient InstructionsNo instructions recorded. Reason for Referral None Reported. Results Created Date Observation Date Name Description Value Unit Range Abnormal Flag Note LastModifiedBy Organization Detail LastModifiedTime 07/06/2007/06/2025 PT/IN R Protime 39.5 Not Available [facility] ([facility]) [address] [place], [address], 07/06/2025 11:23:26 07/06/20 25 07/06/2025 PT/IN R INR 3.3 Not Available [facility] ([facility]) [address] [place], [address], 07/06/2025 11:23:26 07/09/20 25 07/09/2025 PT/IN R Protime 34.6 Not Available [facility] ([facility]) [address] [place], [address], 07/09/2025 13:44:17 07/09/20 25 07/09/2025 PT/IN R INR 2.9 Not Available [facility] ([facility]) [address] [place], [address], 07/09/2025 13:44:17 07/14/20 25 07/14/2025 URINA LYSIS WITH MICRO color YELLOW Not Available [facility] [address] [address], [place], [address], 07/14/2025 14:52:32 07/14/20 25 07/14/2025 URINA LYSIS WITH MICRO clarity CLEAR Not Available [facility] [address] [facility] [place], [address], 07/14/2025 14:52:32 07/14/20 25 07/14/2025 URINA LYSIS WITH MICRO glu NEGATI VE Not Available [facility] [address] [facility] [address], [address], 07/14/2025 14:52:32 07/14/20 25 07/14/2025 URINA LYSIS WITH MICRO bili NEGATI VE Not Available [facility] [address], [place], [address], 07/14/2025 14:52:32 07/14/20 25 07/14/2025 URINA LYSIS WITH MICRO ket NEGATI VE Not Available [facility] [address], [place], [address], 07/14/2025 14:52:32 07/14/20 25 07/14/2025 URINA LYSIS WITH MICRO S.g 1.010 1.005- 1.025 Not Available [facility] [address], [place], [address], 07/14/2025 14:52:32 07/14/20 25 07/14/2025 URINA LYSIS WITH MICRO pH 5.0 5.0-7. 0 Not Available [facility] [address], [place], [address], 07/14/2025 14:52:32 07/14/20 25 07/14/2025 URINA LYSIS WITH MICRO pro NEGATI VE Not Available [facility] [address], [place], [address], 07/14/2025 14:52:32 07/14/20 25 07/14/2025 URINA LYSIS WITH MICRO uro 0.2 E.U./D L Not Available [facility] [address], [place], [address], 07/14/2025 14:52:32 07/14/20 25 07/14/2025 URINA LYSIS WITH MICRO nit NEGATI VE Not Available [facility] [address], [place], [address], 07/14/2025 14:52:32 07/14/20 25 07/14/2025 URINA LYSIS WITH MICRO blo NEGATI VE Not Available [facility] [address] [facility], [place], [address], 07/14/2025 14:52:32 07/14/20 25 07/14/2025 URINA LYSIS WITH MICRO jose elias NEGATI VE Not Available [facility] [address] [facility] 1, [place], [address], 07/14/2025 14:52:32 07/14/20 25 07/14/2025 URINA LYSIS WITH MICRO WBC 0-1 abnormal Not Available [facility] [address] [facility] 1, [place], [address], 07/14/2025 14:52:32 07/14/20 25 07/14/2025 URINA LYSIS WITH MICRO RBC NEGATI VE Not Available [facility] [address] [facility] 1, [place], [address], 07/14/2025 14:52:32 07/14/20 25 07/14/2025 URINA LYSIS WITH MICRO epi cells 1-2 abnormal Not Available [facility] [address] [facility] 1, [place], [address], 07/14/2025 14:52:32 07/14/20 25 07/14/2025 URINA LYSIS WITH MICRO bacteria 1-2 HYALIN E CAST abnormal Not Available [facility] [address] [facility] 1, [place], [address], 07/14/2025 14:52:32 07/14/20 25 07/14/2025 URINA LYSIS WITH MICRO other NEG Not Available [facility] [address] [facility] 1, [place], [address], 07/14/2025 14:52:32 07/14/20 25 07/16/2025 CULTU RE, URINE , ROUTI NE culture, urine, routine SEE NOTE CULTU RE, URINE , ROUTI NE Micro Numbe r: [id number] Test Statu s: Final Speci men Sourc e: Urine Speci men Quali ty: Adequ ate Resul t: No Growt h Not Available [facility] [address] [place], [address], 07/16/2025 02:51:13 07/17/2007/17/2025 PT/IN R Protime 34.4 Not Available [facility] ([facility]) [address] [place], [address], 07/16/2025 12:07:15 07/17/2007/17/2025 PT/IN R INR 2.9 Not Available [facility] ([facility]) [address] [place], [address], 07/16/2025 12:07:15 07/23/2007/23/2025 PT/IN R Protime 47.0 Not Available [facility] ([facility]) [address] [place], [address], 07/23/2025 11:36:06 07/23/2007/23/2025 PT/IN R INR 3.9 Not Available [facility] ([facility]) [address] [place], [address], 07/23/2025 11:36:06 07/30/2007/30/2025 PT/IN R Protime 30.2 Not Available [facility] ([facility]) [address] [place], [address], 07/30/2025 11:33:15 07/30/2007/30/2025 PT/IN R INR 2.5 Not Available [facility] ([facility]) [address] [place], [address], 07/30/2025 11:33:15 08/05/2008/04/2025 XR, cervi luisito spine , 2 or 3 view No observ ation record ed. [facility] [address] [place], [address], 08/07/2025 13:25:55 08/05/20 25 08/04/2025 XR, shoul vito, 2 or more view No observ ation record ed. [facility] [address] [place], [address], 08/07/2025 13:25:55 09/09/2009/08/2025 US, echoc ardio gram, trans thora cic, compl ete, w/ color flow No observ ation record ed. [facility] [address] [place], [address], 09/11/2025 09:19:21 09/15/2009/15/2025 MAMMO , scree ilya, digit al, bilat eral No observ ation record ed. [email or web address] [place] [address] [address] [place], [address], 09/16/2025 16:09:54 Result Notes None recorded. Problems Name Problem SNOMED Code Status Onset Date Resolution Date Notes Provider Name and Address Organization Details Recorded Time Depressi ve disorder 18252673 Completed 202010/14/2021 Depressi on - Status is Inactive ; 10/14/20 11:08AM by Maryellen Marmolejo PA-C, Annotati on/Adden dum; Promoted ; acuity set as *; FELISHA hamilton, [facility] 5 07:56:57 Herpes zoster 7023699 Completed 202201/02/2025 SHINGLES FELISHA hamilton, [facility] 07:56:03 Dysthymi a 42288985 Active 03/03/ 2023 DEPRESSI ON WITH ANXIETY FELISHA hamilton, [facility] 5 07:55:28 Benign essentia l hyperten jovanni 7724924 Active 2022 FELISHA DESIR null, [facility] 5 07:55:28 Gastroes ophageal reflux disease 986142400 Active 2022 FELISHA DESIR null, [facility] 5 07:55:28 Fracture of upper end of humerus 871826703 Completed 202201/02/2025 CLOSED FRACTURE OF PROXIMAL END OF RIGHT HUMERUS, SEQUELA FELISHA hamilton, [facility] 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 5 07:56:22 Atrial fibrilla tion 09713673 Active 2022 FELISHA hamilton, [facility] 3 14:45:05 Coronary atherosc lerosis 262510402 Active 2022 bare metal stents to circ and LAD 2011 FELISHA hamilton, [facility] 3 14:46:30 Iron deficien cy anemia 64358584 Active 2022 FELISHA hamilton, [facility] 5 07:55:28 Hypothyr oidism 21935441 Active 2022 FELISHA hamilton, [facility] 3 14:45:59 Anxiety 13699034 Active 2022 FELISHA hamilton, [facility] 3 14:46:54 Viral hepatiti s C 19647116 Active 2022 FELISHA DESIR null, [facility] 5 07:55:28 Moderate recurren t major depressi on 65550649 Active 2023 FELISHA DESIR null, [facility] 5 07:55:28 Need for personal care assistan ce 46674785199 734591 Active 2023 FELISHA DESIR null, [facility] 5 07:55:28 Frail elderly 589164532 Active 2023 FELISHA DESIR null, [facility] 5 07:55:28 Seasonal allergic rhinitis 677512295 Active 2023 FELISHA DESIR null, [facility] 5 07:55:28 Chronic pain 51834203 Active 2023 FELISHA DESIR null, [facility] 5 07:55:28 Dementia 72010320 Active 2023 FELISHA DESIR null, [facility] 5 07:55:28 Constipa tion 03356614 Active 2023 FELISHA hamilton, [facility] 5 07:55:44 Hyperlip idemia 68420913 Active 2024 FELISHA DESIR null, [facility] 5 07:59:38 Occult blood detected in feces 27490986 Active 2024 FELISHA DESIR null, [facility] 5 09:13:35 Mean corpuscu lar volume above referenc e range 201599495 Active 2024 FELISHA hamilton, [facility] 5 09:14:07 Hypercal cemia 88011816 Active 2024 FELISHA hamilton [facility] [place] 5 10:07:49 Vitamin D deficien cy 20433370 Active 2024 Lyn Mramolejo MD [address] [place] [address], [address], [facility], [place] 5 12:54:55 Hyperpar athyroid ism 94259920 Active 2024 Lyn Marmolejo MD [address] [place] [address], [address], [facility], [place] 5 12:54:56 Dysuria 50274804 Active 2024 Dotty hamilton [facility] [place] 5 14:08:08 Problem Notes None recorded. Procedures Surgical History Date Name Laterality Status Provider Name and Address Organization Details Recorded Time 2024 Most Recent Mammogram completed FELISHA DESIR [facility] [place] 5 16:09:39 2024 esophagogastroduodenoscopy completed YANELIS DESIR [facility] [place] 5 12:23:16 2024 colonoscopy completed FELISHA DESIR [facility], [facility]iceLJosueCJosue 5 10:20:11 2023 esophagogastroduodenoscopy completed KIARA DUCKWORTH [facility], ClariceLDaisy 4 12:40:14 2023 colonoscopy completed Lyn Marmolejo MD [address] [place] [address], [address], [facility], [place] 5 10:19:30 cholecystectomy completed FELISHA [facility] 3 14:48:40 replacement of mitral valve complete d FELISHA [facility] 3 14:49:22 section completed [facility] 3 15:14:43 Imaging Results None recorded. Procedure Notes None recorded. Medical Equipment None Reported. Allergies Allergen ID Allergen Name Allergen Category Reaction Reaction Severity Criticality Documentation Date Start Date Code Code System Note Provider Name and Address Organization Details Recorded Time 1376 morphine medicatio n Not available Not available Not available 02/07/2023 7052 RxNorm Dotty Celis [facility] 3 10:45:47 1377 diltiazem Not available Not available Not available Not available 02/07/2023 3443 RxNorm Dottylizzie Celis [facility] 3 10:45:54 4552 Bactrim medicatio n other severe high 04/17/2023 35995 9 RxNorm do not give d/t couma din Lola Vidal [facility] 4 13:34:33 14454 diltiazem hydrochlo ride medicatio n Not available Not available Not available 05/26/2023 81582 1 RxNorm Comme nt: Recor ded 12/29 7:56A M by Yanelis Kitchen on, INFORMATION ASSISTANT, 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 ; Promo talib; Signi fican ce: *; Reaso n: Drug aller gy; ; FELISHA [facility] 3 12:26:44 81020 morphine sulfate medicatio n Not available Not available Not available 05/26/2023 67475 RxNorm Comme nt: Recor ded 12/29 7:56A M by Yanelis Kitchen on, INFORMATION ASSISTANT, 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 ; Promo talib; Signi fican ce: *; Reaso n: Drug aller gy; ; FELISHA DESIR [facility] 12:26:48 Medications Name Sig Start Date [...] 23 3:43PM by Felisha Desir LPN (Authori candelario through Lyn Marmolejo MD), Refill Request; Refill Quantity : 30; Tablet; Not Available Not Available Not Available fiber 06/08 completed Not Available Not Available Not Available [facility] Levothyro xine Sodium daily 06/08 completed 64353; Recorded 01/09/20 6:06PM by Shirley Quevedo (Authori [...] Organization Details Last Updated DateTime 154.94 cm 29.7 kg/m2 03136 g 97.6 [degF] 79 /min 94 % 126/84 mm[Hg] Dotty Celis [facility] 10:23:59 Social History Question Answer Notes LastModified by [employer] Details LastModified Time Tobacco Smoking Status Former Smoker FELISHA DESIR [facility] 04/17/2023 14:48:01 What Was The Date Of Your Most Recent Tobacco Screening? 05/27/2025 [email or web address] Information not available 05/27/2025 Sex: Unknown Functional Status Question Answer Note LastModified by [employer] Details LastModified Time Do you use any illicit or recreational drugs? No [email or web address] Information not available 04/17/2023 Do you or have you ever used any other forms of tobacco or nicotine? No [email or web address] Information not available 06/29/2023 What is your level of alcohol consumption? None [email or web address] Information not available 04/17/2023 Mental Status None recorded. Family History Relationship Description Onset Age of this Age Resolved Age Notes LastModified by Organization Details LastModified Time Unspecified Relation Coronary atherosclero sis [email or web address] Not available 06/29 15:13:48 Medical History No medical history recorded. Gynecological History Statement/Question Response Most Recent Mammogram 09/15/2025 Obstetrics History GPAL:G 0 P 0 0 0 0 Immunizations Vaccine Type Date Status Note Provider Nam e and Address Organization Details Recorded Time Influenza, MDCK, quadrivalent, PF 2 completed FELISHA hamilton [facility] 10/10/2024 08:38:58 COVID-19, mRNA, LNP-S, PF, 100 mcg/0.5mL dose or 50 mcg/0.25mL dose 1 completed FELISHA hamilton [facility] 10/10/2024 08:38:58 COVID-19, mRNA, LNP-S, PF, 100 mcg/0.5mL dose or 50 mcg/0.25mL dose 1 completed FELISHA hamilton [facility] 10/10/2024 08:38:58 COVID-19, mRNA, LNP-S, PF, 100 mcg/0.5mL dose or 50 mcg/0.25mL dose 2 completed FELISHA hamilton [facility] 10/10/2024 08:38:58 Pneumococcal conjugate PCV20, polysaccharide [id number] conjugate, adjuvant, PF 3 completed FELISHA hamilton [facility] 10/10/2024 08:38:58 COVID-19, mRNA, LNP-S, bivalent, PF, 50 mcg/0.5 mL or 25mcg/0.25 mL dose 3 completed FELISHA hamilton [facility] 10/10/2024 08:38:58 pneumococcal polysaccharide PPV23 3 completed FELISHA DESIR null, [facility] 04/17/2023 12:02:00 Tdap 1 completed FELISHA DESIR null, [facility] 10/10/2024 08:38:58 Influenza, split virus, trivalent, PF 3 completed FELISHA DESIR null, [facility] 04/17/2023 12:02:00 influenza, split (incl. purified surface antigen) 0 completed FELISHA DESIR null, [facility] 04/17/2023 12:02:00 Hep A, adult 1 completed FELISHA DESIR null, [facility] 10/10/2024 08:38:58 Hep A, adult 9 [facility] 10/10/2024 08:38:58 Influenza, split virus, quadrivalent, PF 1 completed FELISHA DESIR null, [facility] 10/10/2024 08:38:58 Influenza, split virus, quadrivalent, PF 9 completed FELISHA DESIR null, [facility] 10/10/2024 08:38:58 Influenza, MDCK, trivalent, PF 4 completed FELISHA DESIR null, [facility] 10/10/2024 08:38:58 Influenza, MDCK, quadrivalent, preservative 3 completed [facility] 10/10/2024 08:38:58 pneumococcal polysaccharide PPV23 8 completed Lola Vidal null, [facility] 07/02/2024 08:41:52 Influenza, split virus, quadrivalent, PF 8 completed Lola hamilton, [facility] 07/02/2024 08:41:52 zoster recombinant 3 completed Lola hamilton, [facility] 07/02/2024 14:52:40 COVID-19, mRNA, LNP-S, PF, 50 mcg/0.5 mL 4 completed FELISHA hamilton, [facility] 10/10/2024 08:38:58 Influenza, MDCK, trivalent, preservative 4 completed FELISHA hamilton, [facility] 10/10/2024 08:38:58 Influenza, high-dose, trivalent, PF 5 completed Not Available [facility] 10/13/2025 09:55:50 Past Encounters Encounter ID Performer Location Encounter Start Date Encounter Closed Date Diagnosis/Indication Diagnosis SNOMED-CT Code Diagnosis ICD10 Code Diagnosis IMO Codes Diagnosis Note [id number] Lyn Marmolejo MD [facility] ([facility]) [address] [place] [address] 07/06/2025 11:22:40 07/07/2025 09:33:46 History of mechanical prosthetic mitral valve replacement 136907258 Z95.2 [id number] Lyn Marmolejo MD [facility] ([facility]) [address] [place] [address] 07/09/2025 13:42:58 07/10/2025 14:24:59 Atrial fibrillation 70177006 I48.91 warfarin therapyd/c naproxen d/t hx of bleeding [id number] Lyn Marmolejo MD [facility] ([facility]) [address] [place] [address] 07/14/2025 13:52:08 07/15/2025 10:22:44 Dysuria 69735679 R30.0 77387 will call with ua results [id number] Lyn Marmolejo MD [facility] ([facility]) [address] [place] [address] 07/16/2025 12:05:46 07/17/2025 11:01:38 Atrial fibrillation 73715464 I48.91 warfarin therapyd/c naproxen d/t hx of bleeding [id number] Lyn Marmolejo MD [facility] ([facility]) [address] [place] [address] 07/23/2025 11:35:38 07/24/2025 12:08:17 Atrial fibrillation 54742291 I48.91 warfarin therapyd/c naproxen d/t hx of bleeding [id number] Lyn Marmolejo MD [facility] ([facility]) [address] [place] [address] 07/30/2025 11:32:37 07/31/2025 09:44:15 History of mechanical prosthetic mitral valve replacement 130967762 Z95.2 [id number] Lyn Marmolejo MD [facility] ([facility]) [address] [place] [address] 08/04/2025 10:06:02 08/04/2025 15:14:44 Right cervical root neuropathy 6583289703 3238097 M54.12 71034037 Pain of ri ght shoulder region 9467526024 M25.511 [id number] Health Concerns Section Related Observation LastModified by Organization Detai ls LastModified Time None Recorded Concern Status LastModified by Organization Details LastModified Time None Recorded Payers Encounter Date Sequence Insurance Name Policy Number Policy Hernandez Covered Member ID Hernandez Member ID Guarantor Name 08/04/2025 1 [place]ANT[place] - PPO) [id number] Odilia Ulloa [id number] Odilia Ulloa 08/04/2025 2 [place] Odilia Ulloa [id number] Odilia Ulloa Notes Date Note Type Note [...] radiates down the arm Lyn Marmolejo MD [address] [place] [address], [phone], [facility] [place] 08/04/2025 10:40:35 OBGyn Episode No OBEpisode recorded.
--- OUTSIDE RECORDS SUMMARY | 2025-10-14 20:05 | XMS_ITS | Encounter Summary ---
Author Organization [facility] Address [address] [place] [address] Care Team Providers Care Aircraft De Icer Installer Name Role Phone Rico Muñzi MD, Sharan Jaime Primary Care Provider Encounter Details Date Type Department Care Team (Late st Contact Info) Description 10/15/2020 Lab Requisition [facility] [address] [place] [phone] Paulina Peterson MD [address] [place] [phone] Social History Tobacco Use Types Packs/Day Years Used Date Smoking Tobacco: Never Assessed Comments Unknown Sex and Gender Information Value Date Recorded Sex Assigned at Not on file Legal Sex Female 5:42 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 Gender Identity Not on file Sexual Orientation Not on file documented as of this encounter Plan of Treatment Not on file documented as of this encounter Procedures Procedure Name Priority Date/Time Associated Diagnosis Comments PROTIME-INR Routine 10/15/2020 4:40 AM 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 documented in this encounter Results * (ABNORMAL) PROTIME-INR (10/15/2020 4:40 AM 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) PROTIME 46.6(H) 11.9 - 15.5 Seconds 10/15/2020 4:26 PM 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 [facility] INR 4.9(H) 0.8 - 1.2 10/15/2020 4:26 PM 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 [facility] Blood Collection / Unknown 10/15/2020 4:40 AM 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 10/15/2020 4:01 PM 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 Narrative [facility] - 10/15/2020 4:26 PM 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 Expected Values for INR: DVT/PE Goal [...] Peterson MD HEMATOLOGY ORDERABLES Maame l Result [facility] [address] [place] [address] documented in this encounter Visit Diagnoses Not on filedocumented in this encounter Care Teams Aircraft De Icer Installer Relationship Specialty Start Date End Date Sharan Gómez Jr., MD [address] [place] [address] PCP - General 08/10/05 documented as of this encounter
--- OUTSIDE RECORDS SUMMARY | 2025-10-14 20:05 | XMS_ITS | Encounter Summary ---
Author Organization [facility] Address [address] [place] [address] Care Team Providers Care Java Grails Developer Name Role Phone Rico Muñiz MD, Sharan Jaime Primary Care Provider Encounter Details Date Type Department Care Team (Latest Contact Info) Description 07/04/2005 Outpatient Historical [facility] ([facility] Int Luis A-Faisal Lopez [address] [place] [address] Serge Arrington MD [address] [place] [address] Mitral valve disorder (Primary Dx); HYPERTENSION NOS; ABN FIND-STOOL CONTENTS-OCC BLOOD; SCREENING MAL NEOP-CERVIX Social History Tobacco Use Types Packs/Day Years Used Date Smoking Tobacco: Never Assessed Comments Unknown Sex and Gender Information Value Date Recorded Sex Assigned at Not on file 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
--- OUTSIDE RECORDS SUMMARY | 2025-10-14 20:05 | XMS_ITS | Encounter Summary ---
Author Organization [facility] Address [address] [place] [address] Care Team Providers Care Magazine Worker Name Role Phone Rico Muñiz MD, Sharan Jaime Primary Care Provider Encounter Details Date Type Department Care Team (Latest Contact Info) Description 11/04/1998 Outpatient Historical [facility] Sharan Gómez Jr., MD [address] [place] [address] Acute upper respiratory infections of unspecified site (Primary Dx); Screening for other and unspecified respiratory condition; Other dyspnea and respiratory abnormality; computer terminal operator (current) use of anticoagulants Social History Tobacco Use Types Packs/Day Years Used Date Smoking Tobacco: Never Assessed Comments Unknown Sex and Gender Information Value Date Recorded Sex Assigned at Not on file Legal Sex Female 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 Gender Identity Not on file Sexual Orientation Not on file documented as of this encounter Plan of Treatment Not on file documented as of this encounter Visit Diagnoses Diagnosis Acute upper respiratory infections of unspecified site- Primary Screening for other and unspecified respiratory condition Other dyspnea and respiratory abnormality computer terminal operator (current) use of anticoagulants Long-term (current) use of anticoagulants documented in this encounter Care Teams Magazine Worker Relationship Specialty Start Date End Date Sharan Gómez Jr., MD [address] [place] [address] PCP - General 08/10/05 documented as of this encounter
--- OUTSIDE RECORDS SUMMARY | 2025-10-14 20:05 | XMS_ITS | Encounter Summary ---
Author Organization [facility] Address [address] [place] [address] Care Team Providers Care Supervisor Telephone Information Name Role Phone Rico Muñiz MD, Sharan Jaime Primary Care Provider Encounter Details Date Type Department Care Team (Latest Contact Info) Description 11/05/2003 Outpatient Historical [facility] 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
--- OUTSIDE RECORDS SUMMARY | 2025-10-14 20:05 | XMS_ITS | Encounter Summary ---
Author Organization [facility] Address [address] [place] [address] Care Team Providers Care Globe Cleaner Name Role Phone Rico Muñiz MD, Sharan Jaime Primary Care Provider Encounter Details Date Type Department Care Team (Latest Contact Info) Description 07/04/2005 Outpatient Historical [facility]-Faisal Lopez [address] [place] [address] Serge Arrington MD [address] [place] [address] HYPERTENSION NOS (Primary Dx) Social History Tobacco Use Types Packs/Day Years Used Date Smoking Tobacco: Never Assessed Comments Unknown Sex and Gender Information Value Date Recorded Sex Assigned at Not on file 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
--- OUTSIDE RECORDS SUMMARY | 2025-10-14 20:05 | XMS_ITS | Encounter Summary ---
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) Social History Tobacco Use Types Packs/Day Years Used Date Smoking Tobacco: Never Assessed Comments Unknown Sex and Gender Information Value Date Recorded Sex Assigned at Not on file 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
--- OUTSIDE RECORDS SUMMARY | 2025-10-14 20:05 | XMS_ITS | Encounter Summary ---
Author Organization [facility] Address [address] [place] [address] Care Team Providers Care Candy Rolling Machine Operator Name Role Phone Rico Muñiz MD, Sharan Jaime Primary Care Provider Encounter Details Date Type Department Care Team (Latest Contact Info) Description 10/27/1998 Outpatient Historical [facility] Sharan Gómez Jr., MD [address] [place] [address] Unspecified essential hypertension (Primary Dx); Chest pain, unspecified; Pneumonia, organism unspecified(486) Social History Tobacco Use Types Packs/Day Years Used Date Smoking Tobacco: Never Assessed Comments Unknown Sex and Gender Information Value Date Recorded Sex Assigned at Not on file 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
--- OUTSIDE RECORDS SUMMARY | 2025-10-14 20:05 | XMS_ITS | Continuity of Care Document ---
Author Organization DAI Kenneth Haas [facility] Luis M, [place], [facility] ([facility]) Address [address] [place] [address] Care Team Providers [facility] Medical Assistant Name Role Phone LYN MARMOLEJO Primary Care Provider Assessment No assessment recorded. Plan of Treatment Reminders Order Date Submit Date Provider Last Modified By Organization Details Last Modified Time Details Appointments None recorded . Lab CMP, serum or plasma - ORDERS FROM [facility] 025 09/09/20 [place] [facility], [address], [place], [address], 10:43:32 Referral None recorded . Procedures None recorded . Surgeries None recorded . Imaging None recorded . Medication Orders None recorded . Patient TargetsNo targets recorded. Patient InstructionsNo instructions recorded. Reason for Referral None Reported. Results Created Date Observation Date Name Description Value Unit Range Abnormal Flag Note LastModifiedBy Organization Detail LastModifiedTime 08/17/2008/17/2025 CBC WBC 6.3 x10 4.0-10 .5 Not Available [facility] [address], [place], [address], 08/17/2025 15:57:00 08/17/2008/17/2025 CBC RBC 3.45 x10 3.50-5 .50 low Not Available [facility] [address] [place] [address], [place], [address], 08/17/2025 15:57:00 08/17/20 08/17/2025 CBC HGB 12.4 g/dL 12.0-1 6.0 Not Available [facility] [address] [facility], [place], [address], 08/17/2025 15:57:00 08/17/20 25 08/17/2025 CBC HCT 37.7 % 37.0-4 7.0 Not Available [facility] [address] [facility], [place], [address], 08/17/2025 15:57:00 08/17/2008/17/2025 CBC MCV 109.2 fL 80.0-9 9.9 high Not Available [facility] [address] [facility], [place], [address], 08/17/2025 15:57:00 08/17/20 25 08/17/2025 CBC MCH 36.0 pg 27.0-3 2.0 high Not Available [facility] [address] [facility], [place], [address], 08/17/2025 15:57:00 08/17/20 25 08/17/2025 CBC MCHC 32.9 g/dL 32.0-3 6.0 Not Available [facility] [address] [place] [facility], [place], [address], 08/17/2025 15:57:00 08/17/20 25 08/17/2025 CBC RDW 12.7 % 11.5-1 4.5 Not Available [facility] [address] [facility], [place], [address], 08/17/2025 15:57:00 08/17/2008/17/2025 CBC plt 239.0 x10 140.0- 451.0 Not Available [facility] [address] [facility], [place], [address], 08/17/2025 15:57:00 08/17/20 25 08/17/2025 CBC lymphocytes % 27.7 % 20.0-5 0.0 Not Available [facility] [address] [place] [facility], [place], [address], 08/17/2025 15:57:00 08/17/20 25 08/17/2025 CBC granulcytes % 56.9 % 30.0-7 0.0 Not Available [facility] [address] [place] [facility], [place], [address], 08/17/2025 15:57:00 08/17/20 25 08/17/2025 CBC monocytes % 10.1 % 2.0-16 .0 Not Available [facility] [address] [address], [place], [address], 08/17/2025 15:57:00 08/17/20 25 08/17/2025 CBC granulcytes# 3.6 x10 Not Cyndi ilable [facility] [address] [address], [place], [address], 08/17/2025 15:57:00 08/17/20 25 08/17/2025 CBC lymphocytes # 1.8 x10 Not Available [facility] [address] [facility] 1, [place], [address], 08/17/2025 15:57:00 08/17/20 25 08/17/2025 CBC monocytes # 0.6 x10 Not Avai lable [facility] [address] [address], [place], [address], 08/17/2025 15:57:00 08/17/20 25 08/17/2025 TSH TSH 0.81 uIU/m L 0.49-3 .82 Not Available [facility] [address] [address], [place], [address], 08/17/2025 16:04:05 08/17/20 25 08/18/2025 PERIP HERAL BLOOD SMEAR REVIE W peripheral blood smear review Macro cytos is 1 + Ovalo cytes 1 + Polyc hroma mikhail 1 + Revie w of the perip heral smear revea ls adequ ate numbe rs of plate lets. Revie w of perip heral smear confi jace autom ated resul ts. Not Available [facility] [address] [place], [address], 08/18/2025 15:11:08 08/17/20 25 08/19/2025 METHY LMALO [...] : 63-24 1 nmol/ L Not Available [facility] [address] [place], [address], 08/20/2025 00:38:15 08/17/2008/19/2025 METHY LMALO SE ACID [...] cteri stics have been deter mined by [facility]. It has not been clear ed or appro shiela by the FDA. This assay has been valid ated pursu ant to the CLIA regul ation s and is used for clini luisito purpo ses. Not Available [facility] [address] [address] [place], [address], 08/20/2025 00:38:15 08/17/2008/19/2025 PROTE IN, TOTAL AND PROTE IN ELECT ROPHO RESIS W/ REFL [place] protein, total 7.1 g/dL 6.1-8. 1 normal Not Available [facility] [address] [address] [place], [address], 08/20/2025 00:38:16 08/17/2008/19/2025 PROTE IN, TOTAL AND PROTE IN ELECT ROPHO RESIS W/ REFL [place] albumin 4.5 g/dL 3.8-4. 8 normal Not Available [facility] [address] [address] [place], [address], 08/20/2025 00:38:16 08/17/2008/19/2025 PROTE IN, TOTAL AND PROTE IN ELECT ROPHO RESIS W/ REFL [place] alpha 1 globulin 0.3 g/dL 0.2-0. 3 normal Not Available [address], [address], 08/20/2025 00:38:16 08/17/20 25 08/19/2025 PROTE IN, TOTAL AND PROTE IN ELECT ROPHO RESIS W/ REFL [place] alpha 2 globulin 0.5 g/dL 0.5-0. 9 normal Not Available [address], [address], 08/20/2025 00:38:16 08/17/2008/19/2025 PROTE IN, TOTAL AND PROTE IN ELECT ROPHO RESIS W/ REFL [place] beta 1 globulin 0.4 g/dL 0.4-0. 6 normal Not Available [address], [address], 08/20/2025 00:38:16 08/17/20 25 08/19/2025 PROTE IN, TOTAL AND PROTE IN ELECT ROPHO RESIS W/ REFL [place] beta 2 globulin 0.3 g/dL 0.2-0. 5 normal Not Available [address], [address], 08/20/2025 00:38:16 08/17/20 25 08/19/2025 PROTE IN, TOTAL AND PROTE IN ELECT ROPHO RESIS W/ REFL [place] gamma globulin 1.1 g/dL 0.8-1. 7 normal Not Available [address], [address], 08/20/2025 00:38:16 08/17/20 25 08/19/2025 PROTE IN, TOTAL AND PROTE IN ELECT ROPHO RESIS W/ REFL [place] interpretati on No restr icted band (M-sp mera) seen. Not Available [address], [address], 08/20/2025 00:38:16 08/17/20 25 08/19/2025 PTH, INTAC [...] or Low Joie l High Not Available [address], [address], 08/20/2025 00:38:16 08/17/20 25 08/19/2025 PTH, INTAC T (ICMA ) AND IONIZ ED CALCI UM calcium 10.2 mg/dL 8.6-10 .4 normal Not Available [address], [address], 08/20/2025 00:38:16 08/17/20 25 08/19/2025 PTH, INTAC T (ICMA ) AND IONIZ ED CALCI UM calcium, ionized 5.6 mg/dL 4.7-5. 5 high Not Available [facility] [address], [address], 08/20/2025 00:38:16 08/17/20 25 08/19/2025 T4, FREE T4, free 1.9 NG/dL 0.8-1. 8 high Not Available [facility] [address], [address], 08/20/2025 00:38:17 08/17/20 25 08/19/2025 VITAM IN B12 vitamin B12 >2000 pg/mL 200-11 00 high Not Available [facility] [address] [place], [address], 08/20/2025 00:38:18 08/17/20 25 08/17/2025 PT/IN R Protime 21.5 Not Available [facility] ([facility]) [address] [place], [address], 08/17/2025 14:33:48 08/17/20 25 08/17/2025 PT/IN R INR 1.8 Not Available [facility] ([facility]) [address] [place] [address], [address], 08/17/2025 14:33:48 09/02/20 25 09/02/2025 PT/IN R Protime 29.0 Not Available [facility] ([facility]) [address] [place] [address], [address], 09/02/2025 13:17:30 09/02/20 25 09/02/2025 PT/IN R INR 2.4 Not Available [facility] ([facility]) [address] [place] [address], [address], 09/02/2025 13:17:30 09/09/20 25 09/09/2025 CMP (FEMA LE) glucose 93.0 mg/dL 60.0-9 9.0 Not Available [address], [address], 09/09/2025 10:43:31 09/09/20 25 09/09/2025 CMP (FEMA LE) BUN (blood urea nitrogen) 20.0 mg/dL 10.0-2 6.0 Not Available [facility] [address] [place] [address] [place], [address], 09/09/2025 10:43:31 09/09/20 25 09/09/2025 CMP (FEMA LE) creatinine (serum) 0.9 mg/dL 0.4-1. 5 Not Available [facility] [address] [facility], [place], [address], 09/09/2025 10:43:31 09/09/20 25 09/09/2025 CMP (FEMA LE) BUN/creatini ne ratio 22.22 ratio Not Available [facility] [address] [place] [facility], [place], [address], 09/09/2025 10:43:31 09/09/20 25 09/09/2025 CMP (FEMA LE) eGFR calculated 64.9 Not Available [facility] [address] [place] [facility], [place], [address], 09/09/2025 10:43:31 09/09/20 25 09/09/2025 CMP (FEMA LE) total protein 7.5 g/dL 6.0-8. 5 Not Available [facility] [address] [place] [facility], [place], [address], 09/09/2025 10:43:31 09/09/20 25 09/09/2025 CMP (FEMA LE) total bilirubin 1.1 mg/dL 0.2-1. 3 Not Available [facility] [address] [place] [facility], [place], [address], 09/09/2025 10:43:31 09/09/20 25 09/09/2025 CMP (FEMA LE) albumin 5.0 g/dL 3.5-5. 5 Not Available [facility] [address] [place] [facility], [place], [address], 09/09/2025 10:43:31 09/09/20 25 09/09/2025 CMP (FEMA LE) globulin 2.5 calc Not Available [facility] [address] [facility], [place], [address], 09/09/2025 10:43:31 09/09/20 25 09/09/2025 CMP (FEMA LE) AST (SGOT) 35.0 U/L 0.0-46 .0 Not Available [facility] [address] [facility], [place], [address], 09/09/2025 10:43:31 09/09/20 25 09/09/2025 CMP (FEMA LE) altv (SGPT) 17.0 U/L 13.0-6 9.0 normal Not Available [facility] [address] [place] [facility], [place], [address], 09/09/2025 10:43:31 09/09/20 25 09/09/2025 CMP (FEMA LE) A/G ratio 2.0 ratio Not Available [facility] [address] [facility] 1, [place], [address], 09/09/2025 10:43:31 09/09/20 25 09/09/2025 CMP (FEMA LE) ALP phos 77.0 U/L 30.0-1 40.0 normal Not Available [facility] [address] [place] [facility], [place], [address], 09/09/2025 10:43:31 09/09/20 25 09/09/2025 CMP (FEMA LE) calcium 10.4 mg/dL 8.4-10 .5 Not Available [facility] [address] [facility] 1, [place], [address], 09/09/2025 10:43:31 09/09/20 25 09/09/2025 CMP (FEMA LE) sodium 139.0 mmol/ L 136.0- 145.0 Not Available [facility] [address] [facility] 1, [place], [address], 09/09/2025 10:43:31 09/09/20 25 09/09/2025 CMP (FEMA LE) potassium 4.2 mmol/ L 3.5-5. 1 Not Available [facility] [address] [facility] 1, [place], [address], 09/09/2025 10:43:31 09/09/20 25 09/09/2025 CMP (FEMA LE) chloride 105.0 mmol/ L 98.0-1 10.0 normal Not Available [facility] [address] [facility], [place], [address], 09/09/2025 10:43:31 09/09/20 25 09/09/2025 CMP (FEMA LE) C02 28.0 mmol/ L 22.0-3 1.0 Not Available [facility] [address] [place] [facility], [place], [address], 09/09/2025 10:43:31 09/09/20 25 09/09/2025 CMP (FEMA LE) anion gap 6.0 calc Not Available [facility] [address] [place] [facility], [place], [address], 09/09/2025 10:43:31 09/09/20 25 09/09/2025 CMP (FEMA LE) osmolality 289.3 calc Not Available [facility] [address] [place] [facility], [place], [address], 09/09/2025 10:43:31 09/09/20 25 09/08/2025 US, echoc ardio gram, trans thora cic, compl ete, w/ color flow No observ ation record ed. [facility] [place] [address], [place], [address], 09/11/2025 09:19:21 09/15/20 25 09/15/2025 MAMMO , scree ilya, digit al, bilat eral No observ ation record ed. [facility] [address] [place], [address], 09/16/2025 16:09:54 Result Notes None recorded. Problems Name Problem SNOMED Code Status Onset Date Resolution Date Notes Provider Name and Address Organization Details Recorded Time Depressi ve disorder 25031070 Completed 202010/14/2021 Depressi on - Status is Inactive ; 10/14/20 11:08AM by Maryellen Marmolejo PA-C, Annotati on/Adden dum; Promoted ; acuity set as *; FELISHA hamilton [facility] 5 07:56:57 Herpes zoster 0142488 Completed 202201/02/2025 SHINGLES FELISHA hamilton, [facility] 5 07:56:03 Dysthymi a 98731088 Active 2022 DEPRESSI ON WITH ANXIETY FELISHA hamilton [facility] 5 07:55:28 Benign essentia l hyperten jovanni 8669434 Active 2022 FELISHA hamilton [facility] 5 07:55:28 Gastroes ophageal reflux disease 115342978 Active 2022 FELISHA hamilton [facility] 5 07:55:28 Fracture of upper end of humerus 534917516 Completed 202201/02/2025 CLOSED FRACTURE OF PROXIMAL END OF RIGHT HUMERUS, SEQUELA FELISHA hamilton [facility] 5 07:56:03 History of terrazzo mechanic helper al prosthet ic mitral valve replacem ent 187334675 Active 2022 FELISHA hamilton [facility] 5 07:56:22 Atrial fibrilla tion 78981567 Active 2022 FELISHA hamilton, [facility] 3 14:45:05 Coronary atherosc lerosis 638128197 Active 2022 bare metal stents to circ and LAD 2011 FELISHAJAMIE DESIR null, [facility] 3 14:46:30 Iron deficien cy anemia 84129014 Active 2022 FELISHA DESIR null, [facility] 5 07:55:28 Hypothyr oidism 81639339 Active 2022 FELISHA hamilton, [facility] 3 14:45:59 Anxiety 86698655 Active 2022 FELISHA hamilton, [facility] 3 14:46:54 Viral hepatiti s C 52786592 Active 2022 FELISHA DESIR [facility], [facility] 5 07:55:28 Moderate recurren t major depressi on 58547317 Active 2023 FELISHA DESIR [facility], [facility] 5 07:55:28 Need for personal care assistan ce 90651811477 246134 Active 2023 FELISHA hamilton, [facility] 5 07:55:28 Frail elderly 296749169 Active 2023 FELISHA DESIR null, [facility] 5 07:55:28 Seasonal allergic rhinitis 511147139 Active 2023 FELISHA DESIR [facility], [facility] 5 07:55:28 Chronic pain 96922412 Active 2023 FELISHA hamilton, [facility] 5 07:55:28 Dementia 50275986 Active 2023 FELISHA DESIR null, [facility] 5 07:55:28 Constipa tion 57316204 Active 2023 FELISHA DESIR null, [facility] 5 07:55:44 Hyperlip idemia 42526866 Active 2024 FELISHA DESIR null, [facility] 5 07:59:38 Occult blood detected in feces 67723204 Active 2024 FELISHA DESIR null, [facility] 5 09:13:35 Mean corpuscu lar volume above referenc e range 640671702 Active 2024 FELISHA DESIR null, [facility] 5 09:14:07 Hypercal cemia 30741414 Active 2024 FELISHA DESIR [facility], [facility] 5 10:07:49 Vitamin D deficien cy 89409507 Active 2024 Lyn Marmolejo MD [address] [place] [address], [phone], [facility], [facility] 5 12:54:55 Hyperpar athyroid ism 30252169 Active 2024 Lyn Marmolejo MD [address] [place] [address], [phone], [facility], L[facility]ueLJosueC[facility]ue 5 12:54:56 Dysuria 64813278 Active 2024 Dotty Celis null, [facility] 5 14:08:08 Problem Notes None recorded. Procedures Surgical History Date Name Laterality Status Provider Name and Address Organization Details Recorded Time 2024 Most Recent Mammogram completed FELISHA [facility] 5 16:09:39 2024 esophagogastroduodenoscopy completed YANELIS WELSH [facility] 5 12:23:16 2024 colonoscopy completed FELISHA [facility] 5 10:20:11 2023 esophagogastroduodenoscopy completed KIARA DUCKWORTH [facility] 4 12:40:14 2023 colonoscopy completed Lyn Marmolejo MD [address] [place] [address], [phone], [facility] 5 10:19:30 [facility] 14:48:40 replacement of mitral valve complete d [facility] 3 14:49:22 section completed [facility] 3 15:14:43 Imaging Results None recorded. Procedure Notes None recorded. Medical Equipment None Reported. Allergies Allergen ID Allergen Name Allergen Category Reaction Reaction Severity Criticality Documentation Date Start Date Code Code System Note Provider Name and Address Organization Details Recorded Time 1376 morphine medicatio n Not available Not available Not available 02/07/2023 7052 RxNorm Dotty Vimal hamilton [facility] 3 10:45:47 1377 diltiazem Not available Not available Not available Not available 02/07/2023 3443 RxNorm Dotty Vimalcarlene hamilton [facility] 3 10:45:54 4552 Bactrim medicatio n other severe high 04/17/2023 09977 9 RxNorm do not give d/t couma din Lola Marcy null, [facility] 4 13:34:33 05678 diltiazem hydrochlo ride medicatio n Not available Not available Not available 05/26/2023 59544 1 RxNorm Comme nt: Recor ded 12/29 7:56A M by Yanelis Kitchen on, BAND TUMBLER, 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 ; Promo talib; Signi fican ce: *; Reaso n: Drug aller gy; ; FELISHA hamilton, [facility] 3 12:26:44 07244 morphine sulfate medicatio n Not available Not available Not available 05/26/2023 99092 RxNorm Comme nt: Recor ded 12/29 7:56A M by Yanelis Kitchen on, BAND TUMBLER, 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 ; Promo talib; Signi dolores ce: *; Reaso n: Drug aller gy; ; FELISHA hamilton, [facility] 3 12:26:48 Medications Name [...] THSC Levothyro xine Sodium daily 06/08 completed 21240; Recorded 01/09/20 6:06PM by Shirley Quevedo (Authori [...] Tobacco Smoking Status Former Smoker FELISHA hamilton [facility] 04/17/2023 14:48:01 What Was The Date Of Your Most Recent Tobacco Screening? 05/27/2025 [email or web address] Information not available 05/27/2025 Sex: Unknown Functional Status Question Answer Note LastModified by Organizat ion Details LastModified Time Do you use any illicit or recreational drugs? No [email or web address] Information not available 04/17/2023 Do you or have you ever used any other forms of tobacco or nicotine? No [email or web address] Information not available 06/29/2023 What is your level of alcohol consumption? None [email or web address] Information not available 04/17/2023 Mental Status None recorded. Family History Relationship Description Onset Age of this Age Resolved Age Notes LastModified by Organization Details LastModified Time Unspecified Relation Coronary atherosclero sis [email or web address] Not available 06/29 15:13:48 Medical History No medical history recorded. Gynecological History Statement/Question Response Most Recent Mammogram 09/15/2025 Obstetrics History GPAL:G 0 P 0 0 0 0 Immunizations Vaccine Type Date Status Note Provider Nam e and Address Organization Details Recorded Time Influenza, MDCK, quadrivalent, PF 2 completed FELISHA hamilton [facility] 10/10/2024 08:38:58 COVID-19, mRNA, LNP-S, PF, 100 mcg/0.5mL dose or 50 mcg/0.25mL dose 1 completed FELISHA hamilton [facility] 10/10/2024 08:38:58 COVID-19, mRNA, LNP-S, PF, 100 mcg/0.5mL dose or 50 mcg/0.25mL dose 1 completed FELISHA hamilton [facility] 10/10/2024 08:38:58 COVID-19, mRNA, LNP-S, PF, 100 mcg/0.5mL dose or 50 mcg/0.25mL dose 2 completed FELISHA hamilton [facility] 10/10/2024 08:38:58 Pneumococcal conjugate PCV20, polysaccharide [id number] conjugate, adjuvant, PF 3 completed FELISHA hamilton, [facility] 10/10/2024 08:38:58 COVID-19, mRNA, LNP-S, bivalent, PF, 50 mcg/0.5 mL or 25mcg/0.25 mL dose 3 completed FELISHA hamilton, [facility] 10/10/2024 08:38:58 pneumococcal polysaccharide PPV23 3 completed FELISHA hamilton, [facility] 04/17/2023 12:02:00 Tdap 1 [facility] 10/10/2024 08:38:58 Influenza, split virus, trivalent, PF 3 completed FELISHA hamilton, [facility] 04/17/2023 12:02:00 influenza, split (incl. purified surface antigen) 0 completed FELISHA hamilton, [facility] 04/17/2023 12:02:00 Hep A, adult 1 completed FELISHA hamilton, [facility] 10/10/2024 08:38:58 Hep A, adult 9 completed FELISHA hamilton, [facility] 10/10/2024 08:38:58 Influenza, split virus, quadrivalent, PF 1 completed FELISHA hamilton, [facility] 10/10/2024 08:38:58 Influenza, split virus, quadrivalent, PF 9 completed FELISHA hamilton, [facility] 10/10/2024 08:38:58 Influenza, MDCK, trivalent, PF 4 completed FELISHA hamilton, [facility] 10/10/2024 08:38:58 Influenza, MDCK, quadrivalent, preservative 3 completed FELISHA hamilton, [facility] 10/10/2024 08:38:58 pneumococcal polysaccharide PPV23 8 completed Lola hamilton, [facility] 07/02/2024 08:41:52 Influenza, split virus, quadrivalent, PF 8 completed Lola hamilton, [facility] 07/02/2024 08:41:52 zoster recombinant 3 completed Lola hamilton, [facility] 07/02/2024 14:52:40 COVID-19, mRNA, LNP-S, PF, 50 mcg/0.5 mL 4 completed FELISHA hamilton, [facility] 10/10/2024 08:38:58 Influenza, MDCK, trivalent, preservative 4 completed FELISHA hamilton [facility] 10/10/2024 08:38:58 Influenza, high-dose, trivalent, PF 5 completed Not Available [facility] 10/13/2025 09:55:50 Past Encounters Encounter ID Performer Location Encounter Start Date Encounter Closed Date Diagnosis/Indication Diagnosis SNOMED-CT Code Diagnosis ICD10 Code Diagnosis IMO Codes Diagnosis Note [id number] Lyn Marmolejo MD [facility] ([facility]) [address] [place] [phone] 08/17/2025 13:17:17 08/18/2025 09:51:22 History of mechanical prosthetic mitral valve replacement 661415817 Z95.2 Mean corpu scular volume above reference range 982987986 R71.8 725029 Hypercalcemia 52725241 E 83.52 9955 Drug therapy finding 309 173508 Z79.899 71570478 Generalize d anxiety disorder 66506062 F41.1 870113 [id number] Lyn Marmolejo MD [facility] ([facility]) [address] [place] [address] 09/02/2025 13:16:47 09/03/2025 10:16:00 History of mechanical prosthetic mitral valve replacement 345703924 Z95.2 [id number] Lyn Marmolejo MD [facility] ([facility]) [address] [place] [address] 09/09/2025 09:58:14 09/10/2025 09:52:18 Benign essential hypertension 5996857 I10 Health Concerns Section Related Observation LastModified by Organization Detai ls LastModified Time None Recorded Concern Status LastModified by Organization Details LastModified Time None Recorded Payers Encounter Date Sequence Insurance Name Policy Number Policy Hernandez Covered Member ID Hernandez Member ID Guarantor Name 09/09/2025 1 [place]ANT[place] - [place]PO) [id number] Odilia Ulloa [id number] Odilia Ulloa 09/09/2025 2 [place] Odilia [place] [id number] Odilia [place] OBGyn Episode No OBEpisode recorded.
--- OUTSIDE RECORDS SUMMARY | 2025-10-14 20:05 | XMS_ITS | Encounter Summary ---
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
--- OUTSIDE RECORDS SUMMARY | 2025-10-14 20:05 | XMS_ITS | Encounter Summary ---
Author Organization [facility] Address [address] [place] [address] Care Team Providers Care Compensation Coordinator Name Role Phone Rico Muñiz MD, Sharan Jaime Primary Care Provider Encounter Details Date Type Department Care Team (Latest Contact Info) Description 12/13/1998 Outpatient Historical [facility] Sharan Gómez Jr., MD [address] [place] [address] Acute upper respiratory infections of unspecified site (Primary Dx); senior care (current) use of anticoagulants Social History Tobacco Use Types Packs/Day Years Used Date Smoking Tobacco: Never Assessed Comments Unknown Sex and Gender Information Value Date Recorded Sex Assigned at Not on file 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
--- OUTSIDE RECORDS SUMMARY | 2025-10-14 20:05 | XMS_ITS | Encounter Summary ---
Author Organization [facility] Address [address] [place] [address] Care Team Providers Care Farmworker Vegetable Name Role Phone Rico Muñiz MD, Sharan Jaime Primary Care Provider Encounter Details Date Type Department Care Team (Latest Contact Info) Description 01/14/1999 Outpatient Historical [facility] Sharan Gómez Jr., MD [address] [place] [address] Spasm of muscle (Primary Dx) Social History Tobacco Use Types Packs/Day Years Used Date Smoking Tobacco: Never Assessed Comments Unknown Sex and Gender Information Value Date Recorded Sex Assigned at Not on file 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
--- OUTSIDE RECORDS SUMMARY | 2025-10-14 20:06 | XMS_ITS | Encounter Summary ---
Author Organization [facility] Address [address] [place] [address] Care Team Providers Care Helper/Driver Name Role Phone Rico Muñiz MD, Sharan Jaime Primary Care Provider Encounter Details Date Type Department Care Team (Latest Contact Info) Description 11/28/2001 Outpatient Historical [facility] Sharan Gómez Jr., MD [address] [place] [address] URIN TRACT INFECTION NOS (Primary Dx); AFTERCARE DETENTION ANTICOAG USE Social History Tobacco Use Types Packs/Day Years Used Date Smoking Tobacco: Never Assessed Comments Unknown Sex and Gender Information Value Date Recorded Sex Assigned at Not on file Legal Sex Female 5:42 AM DIGITAL MEDIA INTERN Gender Identity Not on file Sexual Orientation Not on file documented as of this encounter Plan of Treatment Not on file documented as of this encounter Visit Diagnoses Diagnosis Urinary tract infection, site not specified- Primary jail (current) use of anticoagulants Long-term (current) use of anticoagulants documented in this encounter Care Teams Helper/Driver Relationship Specialty Start Date End Date Sharan Gómez Jr., MD [address] [place] [address] PCP - General 08/10/05 documented as of this encounter
--- OUTSIDE RECORDS SUMMARY | 2025-10-14 20:06 | XMS_ITS | Encounter Summary ---
Author Organization [facility] Address [address] [place] [address] Care Team Providers Care Parts Driver Name Role Phone Rico Muñiz MD, Sharan Jaime Primary Care Provider Encounter Details Date Type Department Care Team (Latest Contact Info) Description 01/03/2002 Outpatient Historical [facility] Sharan Gómez Jr., MD [address] [place] [address] FLU W RESP MANIFEST NEC (Primary Dx); AFTERCARE SKILLED NURSING ANTICOAG USE Social History Tobacco Use Types Packs/Day Years Used Date Smoking Tobacco: Never Assessed Comments Unknown Sex and Gender Information Value Date Recorded Sex Assigned at Not on file Legal Sex Female 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
--- OUTSIDE RECORDS SUMMARY | 2025-10-14 20:06 | XMS_ITS | Encounter Summary ---
Author Organization [facility] Address [address] [place] [address] Care Team Providers Care Kiln Door Builder Name Role Phone Rico Muñiz MD, Sharan Jaime Primary Care Provider Encounter Details Date Type Department Care Team (Latest Contact Info) Description 06/28/2001 Outpatient Historical [facility] Sharan Gómez Jr., MD [address] [place] [address] Esophageal reflux (Primary Dx); Heart valve replaced by other means Social History Tobacco Use Types Packs/Day Years Used Date Smoking Tobacco: Never Assessed Comments Unknown Sex and Gender Information Value Date Recorded Sex Assigned at Not on file Legal Sex Female 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
--- OUTSIDE RECORDS SUMMARY | 2025-10-14 20:06 | XMS_ITS | Encounter Summary ---
Author Organization [facility] Address [address] [facility] Attn: [place] [address] Care Team Providers Care Manager Of Construction Name Role Phone Rico Muñiz MD, Sharan Jaime Primary Care Provider Encounter Details Date Type Department Care Team (Late st Contact Info) Description 05/16/2001 Outpatient Historical Sharan Gómez Jr., MD [address] [place] [address] Social History Tobacco Use Types Packs/Day Years Used Date Smoking Tobacco: Never Assessed Comments Unknown Sex and Gender Information Value Date Recorded Sex Assigned at Not on file Legal Sex Female 5:42 AM DEMI CHEF Gender Identity Not on file Sexual Orientation Not on file documented as of this encounter Plan of Treatment Not on file documented as of this encounter Visit Diagnoses Not on filedocumented in this encounter Care Teams Manager Of Construction Relationship Specialty Start Date End Date Sharan Gómez Jr., MD [address] [place] [address] PCP - General 08/10/05 documented as of this encounter
--- OUTSIDE RECORDS SUMMARY | 2025-10-14 20:06 | XMS_ITS | Encounter Summary ---
Author Organization [facility] Address [address] [place] [address] Care Team Providers Care Funding Analyst Name Role Phone Rico Muñiz MD, Sharan Jaime Primary Care Provider Encounter Details Date Type Department Care Team (Latest Contact Info) Description 12/20/2001 Outpatient Historical [facility] Sharan Gómez Jr., MD [address] [place] [address] WHEEZING (Primary Dx); HEART VALVE REPLAC NEC; AFTERCARE EAP CONSULTANT ANTICOAG USE Social History Tobacco Use Types Packs/Day Years Used Date Smoking Tobacco: Never Assessed Comments Unknown Sex and Gender Information Value Date Recorded Sex Assigned at Not on file Legal Sex Female 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
--- OUTSIDE RECORDS SUMMARY | 2025-10-14 20:06 | XMS_ITS | Encounter Summary ---
Author Organization [facility] Address [address] [facility] Attn: [place] [address] Care Team Providers Care Dietitian Name Role Phone Rico Muñiz MD, Sharan Jaime Primary Care Provider Encounter Details Date Type Department Care Team (Late st Contact Info) Description 06/22/2000 Outpatient Historical Serge Arrington MD [address] [place] [address] Social History Tobacco Use Types Packs/Day Years Used Date Smoking Tobacco: Never Assessed Comments Unknown Sex and Gender Information Value Date Recorded Sex Assigned at Not on file Legal Sex Female 5:42 AM LIGHTING ENGINEER Gender Identity Not on file Sexual Orientation Not on file documented as of this encounter Plan of Treatment Not on file documented as of this encounter Visit Diagnoses Not on filedocumented in this encounter Care Teams Dietitian Relationship Specialty Start Date End Date Sharan Gómez Jr., MD [address] [place] [address] PCP - General 08/10/05 documented as of this encounter
--- OUTSIDE RECORDS SUMMARY | 2025-10-14 20:06 | XMS_ITS | Encounter Summary ---
Author Organization [facility] Address [address] [place] [address] Care Team Providers Care Cylinder Press Operator Name Role Phone Rico Muñiz MD, Sharan Jaime Primary Care Provider Encounter Details Date Type Department Care Team (Late st Contact Info) Description 06/24/2001 Outpatient Historical [facility] Serge Arrington MD [address] [place] [address] Unspecified essential hypertension (Primary Dx); Other and unspecified hyperlipidemia Social History Tobacco Use Types Packs/Day Years Used Date Smoking Tobacco: Never Assessed Comments Unknown Sex and Gender Information Value Date Recorded Sex Assigned at Not on file Legal Sex Female 5:42 AM OPERATIONS MANAGER ASSISTANT Gender Identity Not on file Sexual Orientation Not on file documented as of this encounter Plan of Treatment Not on file documented as of this encounter Visit Diagnoses Diagnosis Unspecified essential hypertension- Primary Other and unspecified hyperlipidemia documented in this encounter Care Teams Cylinder Press Operator Relationship Specialty Start Date End Date Sharan Gómez Jr., MD [address] [place] [address] PCP - General 08/10/05 documented as of this encounter
--- OUTSIDE RECORDS SUMMARY | 2025-10-14 20:06 | XMS_ITS | Continuity of Care Document ---
Author Organization DAI Haas [facility], [place], [facility] ([facility]) Address [address] [place] [address] Care Team Providers Care Classroom Instructional Aide Name Role Phone LYN MARMOLEJO Primary Care Provider Assessment No assessment recorded. Plan of Treatment Reminders Order Date Submit Date Provider Last Modified By Organization Details Last Modified Time Details Appointments None record ed. Lab PT/INR 025 07/30/20 25 [facility]), [address] [place], [address], 11:49:49 Referral None record ed. Procedures None record ed. Surgeries None record ed. Imaging None record ed. Medication Orders None record ed. Patient TargetsNo targets recorded. Patient InstructionsNo instructions recorded. Reason for Referral None Reported. Results Created Date Observation Date Name Description Value Unit Range Abnormal Flag Note LastModifiedBy Organization Detail LastModifiedTime 07/02/2007/02/2025 PT/IN R Protime 42.[address] [facility]) [address] [place], [address], 07/01/2025 10:25:07 07/02/20 25 07/02/2025 PT/IN R INR 3.5 Not Available [facility] ([facility]) [address] [place], [address], 07/01/2025 10:25:07 07/06/20 25 07/06/2025 PT/IN R Protime 39.5 Not Available [facility] ([facility]) [address] [place], [address], 07/06/2025 11:23:26 07/06/20 25 07/06/2025 PT/IN R INR 3.3 Not Available [facility] ([facility]) [address] [place], [address], 07/06/2025 11:23:26 07/09/20 25 07/09/2025 PT/IN R Protime 34.6 Not Available [facility] ([facility]) [address] [place], [address], 07/09/2025 13:44:17 07/09/20 25 07/09/2025 PT/IN R INR 2.9 Not Available [facility] ([facility]) [address] [place], [address], 07/09/2025 13:44:17 07/14/20 25 07/14/2025 URINA LYSIS WITH MICRO color YELLOW Not Available [facility] [address] [facility] [address], [place], [address], 07/14/2025 14:52:32 07/14/20 25 07/14/2025 URINA LYSIS WITH MICRO clarity CLEAR Not Available [facility] [address] [facility] [address], [place], [address], 07/14/2025 14:52:32 07/14/20 25 07/14/2025 URINA LYSIS WITH MICRO glu NEGATI VE Not Available [facility] [address] [facility] [address], [address], 07/14/2025 14:52:32 07/14/20 25 07/14/2025 URINA LYSIS WITH MICRO bili NEGATI VE Not Available [facility] [address], [place], [address], 07/14/2025 14:52:32 07/14/20 25 07/14/2025 URINA LYSIS WITH MICRO ket NEGATI VE Not Available [facility] [address], [place], [address], 07/14/2025 14:52:32 07/14/2007/14/2025 URINA LYSIS WITH MICRO S.g 1.010 1.005- 1.025 Not Available [facility] [address], [place], [address], 07/14/2025 14:52:32 07/14/20 25 07/14/2025 URINA LYSIS WITH MICRO pH 5.0 5.0-7. 0 Not Available [facility] [address], [place], [address], 07/14/2025 14:52:32 07/14/20 25 07/14/2025 URINA LYSIS WITH MICRO pro NEGATI VE Not Available [facility] [address], [place], [address], 07/14/2025 14:52:32 07/14/20 25 07/14/2025 URINA LYSIS WITH MICRO uro 0.2 E.U./D L Not Available [facility] [address], [place], [address], 07/14/2025 14:52:32 07/14/2007/14/2025 URINA LYSIS WITH MICRO nit NEGATI VE Not Available [facility] [address], [place], [address], 07/14/2025 14:52:32 07/14/20 25 07/14/2025 URINA LYSIS WITH MICRO blo NEGATI VE Not Available [facility] [address] [facility] [address], [place], [address], 07/14/2025 14:52:32 07/14/20 25 07/14/2025 URINA LYSIS WITH MICRO jose elias NEGATI VE Not Available [facility] [address] [facility] [address], [place], [address], 07/14/2025 14:52:32 07/14/20 25 07/14/2025 URINA LYSIS WITH MICRO WBC 0-1 abnormal Not Available [facility] [address] [facility] [address], [place], [address], 07/14/2025 14:52:32 07/14/20 25 07/14/2025 URINA LYSIS WITH MICRO RBC NEGATI VE Not Available [facility] [address] [facility] [address], [place], [address], 07/14/2025 14:52:32 07/14/20 25 07/14/2025 URINA LYSIS WITH MICRO epi cells 1-2 abnormal Not Available [facility] [address] [facility] [address], [place], [address], 07/14/2025 14:52:32 07/14/20 25 07/14/2025 URINA LYSIS WITH MICRO bacteria 1-2 HYALIN E CAST abnormal Not Available [facility] [address] [facility] [address], [place], [address], 07/14/2025 14:52:32 07/14/20 25 07/14/2025 URINA LYSIS WITH MICRO other NEG Not Available [facility] [address] [facility] [address], [place], [address], 07/14/2025 14:52:32 07/14/20 25 07/16/2025 CULTU RE, URINE , ROUTI NE culture, urine, routine SEE NOTE CULTU RE, URINE , ROUTI NE Micro Numbe r: [id number] Test Statu s: Final Speci men Sourc e: Urine Speci men Quali ty: Adequ ate Resul t: No Growt h Not Available [facility] [address] [place], [address], 07/16/2025 02:51:13 07/17/2007/17/2025 PT/IN R Protime 34.4 Not Available [facility] ([facility]) [address] [place], [address], 07/16/2025 12:07:15 07/17/2007/17/2025 PT/IN R INR 2.9 Not Available [facility] ([facility]) [address] [place], [address], 07/16/2025 12:07:15 07/23/2007/23/2025 PT/IN R Protime 47.0 Not Available [facility] ([facility]) [address] [place], [address], 07/23/2025 11:36:06 07/23/2007/23/2025 PT/IN R INR 3.9 Not Available [facility] ([facility]) [address] [place], [address], 07/23/2025 11:36:06 07/30/2007/30/2025 PT/IN R Protime 30.2 Not Available [facility] ([facility]) [address] [place], [address], 07/30/2025 11:33:15 07/30/2007/30/2025 PT/IN R INR 2.5 Not Available [facility] ([facility]) [address] [place], [address], 07/30/2025 11:33:15 08/05/2008/04/2025 XR, cervi luisito spine , 2 or 3 view No observ ation record ed. [facility] [address] [place], [address], 08/07/2025 13:25:55 08/05/20 25 08/04/2025 XR, shoul vito, 2 or more view No observ ation record ed. [facility] [address] [place], [address], 08/07/2025 13:25:55 09/09/20 25 09/08/2025 US, echoc ardio gram, trans thora cic, compl ete, w/ color flow No observ ation record ed. [facility] [address] [place], [address], 09/11/2025 09:19:21 09/15/2009/15/2025 MAMMO , scree ilya, digit al, bilat eral No observ ation record ed. [email or web address] [place] [address] [address] [place], [address], 09/16/2025 16:09:54 Result Notes None recorded. Problems Name Problem SNOMED Code Status Onset Date Resolution Date Notes Provider Name and Address Organization Details Recorded Time Depressi ve disorder 10440259 Completed 202010/14/2021 Depressi on - Status is Inactive ; 10/14/20 11:08AM by Maryellen Marmolejo PA-C, Annotati on/Adden dum; Promoted ; acuity set as *; FELISHA hamilton, [facility] 5 07:56:57 Herpes zoster 6486855 Completed 202201/02/2025 SHINGLES FELISHA hamilton [facility], [facility] 5 07:56:03 Dysthymi a 39921922 Active 2022 DEPRESSI ON WITH ANXIETY FELISHA hamilton, [facility] 5 07:55:28 Benign essentia l hyperten jovanni 0210813 Active 2022 FELISHA DESIR null, [facility] 5 07:55:28 Gastroes ophageal reflux disease 041917427 Active 2022 FELISHA DESIR null, [facility] 5 07:55:28 Fracture of upper end of humerus 171094726 Completed 202201/02/2025 CLOSED FRACTURE OF PROXIMAL END OF RIGHT HUMERUS, SEQUELA FELISHA hamilton, [facility] 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 5 07:56:22 Atrial fibrilla tion 83617797 Active 2022 FELISHA hamilton, [facility] 3 14:45:05 Coronary atherosc lerosis 847649991 Active 2022 bare metal stents to circ and LAD 2011 FELISHA hamilton, [facility] 3 14:46:30 Iron deficien cy anemia 75685191 Active 2022 FELISHA hamilton, [facility] 5 07:55:28 Hypothyr oidism 13290946 Active 2022 FELISHA hamilton, [facility] 3 14:45:59 Anxiety 45608022 Active 2022 FELISHA hamilton, [facility] 3 14:46:54 Viral hepatiti s C 11201611 Active 2022 FELISHA DESIR null, [facility] 5 07:55:28 Moderate recurren t major depressi on 26481647 Active 2023 FELISHA DESIR null, [facility] 5 07:55:28 Need for personal care assistan ce 97548356097 855013 Active 2023 FELISHA DESIR null, [facility] 5 07:55:28 Frail elderly 315844089 Active 2023 FELISHA DESIR null, [facility] 5 07:55:28 Seasonal allergic rhinitis 247537911 Active 2023 FELISHA hamilton, [facility] 5 07:55:28 Chronic pain 22651281 Active 2023 FELISHA DESIR null, [facility] 5 07:55:28 Dementia 93599232 Active 2023 FELISHA DESIR null, [facility] 5 07:55:28 Constipa tion 52807725 Active 2023 FELISHA hamilton, [facility] 5 07:55:44 Hyperlip idemia 16163596 Active 2024 FELISHA DESIR null, [facility] 5 07:59:38 Occult blood detected in feces 72485502 Active 2024 FELISHA hamilton, [facility] 5 09:13:35 Mean corpuscu lar volume above referenc e range 275066958 Active 2024 FELISHA hamitlon, [facility] 5 09:14:07 Hypercal cemia 21535857 Active 2024 FELISHA hamilton [facility], [place] 5 10:07:49 Vitamin D deficien cy 56143448 Active 2024 Lyn Marmolejo MD [address] [place] [address], [address], [facility], [place] 5 12:54:55 Hyperpar athyroid ism 51878798 Active 2024 Lyn Marmolejo MD [address] [place] [address], [address], [facility], [place] 5 12:54:56 Dysuria 97400726 Active 2024 Dotty hamilton [facility], [place] 5 14:08:08 Problem Notes None recorded. Procedures Surgical History Date Name Laterality Status Provider Name and Address Organization Details Recorded Time 2024 Most Recent Mammogram completed FELISHA DESIR [facility], [facility] 5 16:09:39 2024 esophagogastroduodenoscopy completed YANELIS DESIR [facility], [place] 5 12:23:16 2024 colonoscopy completed FELISHA DESIR [facility], Diane.LJosueCJosue 5 10:20:11 2023 esophagogastroduodenoscopy completed KIARA DUCKWORTH [facility], ClariceLDaisy 4 12:40:14 2023 colonoscopy completed Lyn Marmolejo MD [address] [place] [address], [address], [facility], [place] 5 10:19:30 cholecystectomy completed FELISHA [facility] 3 14:48:40 replacement of mitral valve complete d FELISHA [facility] 3 14:49:22 section completed [facility] 3 15:14:43 Imaging Results None recorded. Procedure Notes None recorded. Medical Equipment None Reported. Allergies Allergen ID Allergen Name Allergen Category Reaction Reaction Severity Criticality Documentation Date Start Date Code Code System Note Provider Name and Address Organization Details Recorded Time 1376 morphine medicatio n Not available Not available Not available 02/07/2023 7052 RxNorm Dotty Celis [facility] 3 10:45:47 1377 diltiazem Not available Not available Not available Not available 02/07/2023 3443 RxNorm Dottylizzie Celis [facility] 3 10:45:54 4552 Bactrim medicatio n other severe high 04/17/2023 42516 9 RxNorm do not give d/t couma din Lola Vidal [facility] 4 13:34:33 30582 diltiazem hydrochlo ride medicatio n Not available Not available Not available 05/26/202332889 1 RxNorm Comme nt: Recor ded 12/29 7:56A M by Yanelis Kitchen on, CHAIRMAN PRESIDENT AND CHIEF EXECUTIVE OFFICER, 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 ; Promo talib; Signi fican ce: *; Reaso n: Drug aller gy; ; FELISHA [facility] 3 12:26:44 49830 morphine sulfate medicatio n Not available Not available Not available 05/26/2023 85826 RxNorm Comme nt: Recor ded 12/29 7:56A M by Yanelis Kitchen on, CHAIRMAN PRESIDENT AND CHIEF EXECUTIVE OFFICER, 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 ; Promo talib; Signi fican ce: *; Reaso n: Drug aller gy; ; FELISHA DESIR [facility] 12:26:48 Medications Name Sig Start Date [...] Available Not Available No t Available cyanocoba bernei (vit B-12) 1,000 mcg sublingua l tablet [...] THSC Levothyro xine Sodium daily 06/08 completed 40458; Recorded 01/09/20 6:06PM by Shirley Quevedo (Authori pushpad through Travis Sousa MD), Refill Request; Refill Quantity : 30; Tablet; Not Available Not Available Not Available galantami ne 04/17 completed Not Available Not Available Not Available Potassium Chloride ER twice daily 06/08 completed 436; Recorded 03/13/20 3:22PM by Felisha Desir LPN (Authori zegreg through [...] Tobacco Smoking Status Former Smoker [facility]HA [facility] 04/17/2023 14:48:01 What Was The Date Of Your Most Recent Tobacco Screening? 05/27/2025 [email or web address] Information not available 05/27/2025 Sex: Unknown Functional Status Question Answer Note LastModified by Organizat ion Details LastModified Time Do you use any illicit or recreational drugs? No Information not available 04/17/2023 Do you or have you ever used any other forms of tobacco or nicotine? No [email or web address] Information not available 06/29/2023 What is your level of alcohol consumption? None Information not available 04/17/2023 Mental Status None recorded. Family History Relationship Description Onset Age of this Age Resolved Age Notes LastModified by Organization Details LastModified Time Unspecified Relation Coronary atherosclero sis [email or web address] Not available 06/29 15:13:48 Medical History No medical history recorded. Gynecological History Statement/Question Response Most Recent Mammogram 09/15/2025 Obstetrics History GPAL:G 0 P 0 0 0 0 Immunizations Vaccine Type Date Status Note Provider Nam e and Address Organization Details Recorded Time Influenza, MDCK, quadrivalent, PF 2 completed FELISHA hamilton, [facility] 10/10/2024 08:38:58 COVID-19, mRNA, LNP-S, PF, 100 mcg/0.5mL dose or 50 mcg/0.25mL dose 1 completed FELISHA hamilton, [facility] 10/10/2024 08:38:58 COVID-19, mRNA, LNP-S, PF, 100 mcg/0.5mL dose or 50 mcg/0.25mL dose 1 [facility] 10/10/2024 08:38:58 COVID-19, mRNA, LNP-S, PF, 100 mcg/0.5mL dose or 50 mcg/0.25mL dose 2 [facility] 10/10/2024 08:38:58 Pneumococcal conjugate PCV20, polysaccharide IAY112 conjugate, adjuvant, PF 3 [facility] 10/10/2024 08:38:58 COVID-19, mRNA, LNP-S, bivalent, PF, 50 mcg/0.5 mL or 25mcg/0.25 mL dose 3 [facility] 10/10/2024 08:38:58 pneumococcal polysaccharide PPV23 3 [facility] 04/17/2023 12:02:00 Tdap 1 completed FELISHA hamilton [facility] 10/10/2024 08:38:58 Influenza, split virus, trivalent, PF 3 completed FELISHA DESIR null, [facility] 04/17/2023 12:02:00 influenza, split (incl. purified surface antigen) 0 completed FELISHA DESIR null, [facility] 04/17/2023 12:02:00 Hep A, adult 1 completed FELISHA DESIR null, [facility] 10/10/2024 08:38:58 Hep A, adult 9 completed FELISHA DESIR null, [facility] 10/10/2024 08:38:58 Influenza, split virus, quadrivalent, PF 1 completed FELISHA DESIR null, [facility] 10/10/2024 08:38:58 Influenza, split virus, quadrivalent, PF 9 completed FELISHA DESIR null, [facility] 10/10/2024 08:38:58 Influenza, MDCK, trivalent, PF 4 completed FELISHA DESIR null, [facility] 10/10/2024 08:38:58 Influenza, MDCK, quadrivalent, preservative 3 completed FELISHA DESIR null, [facility] 10/10/2024 08:38:58 pneumococcal polysaccharide PPV23 8 completed Lola hamilton, [facility] 07/02/2024 08:41:52 Influenza, split virus, quadrivalent, PF 8 completed Lola Vidal null, [facility] 07/02/2024 08:41:52 zoster recombinant 3 completed Lola hamilton, [facility] 07/02/2024 14:52:40 COVID-19, mRNA, LNP-S, PF, 50 mcg/0.5 mL 4 completed FELISHA hamilton [facility] 10/10/2024 08:38:58 Influenza, MDCK, trivalent, preservative 4 completed FELISHA hamilton [facility] 10/10/2024 08:38:58 Influenza, high-dose, trivalent, PF 5 completed [facility] Available [facility] 10/13/2025 09:55:50 Past Encounters Encounter ID Performer Location Encounter Start Date Encounter Closed Date Diagnosis/Indication Diagnosis SNOMED-CT Code Diagnosis ICD10 Code Diagnosis IMO Codes Diagnosis Note [id number] Lyn Marmolejo MD [facility] ([facility]) [address] [place] [phone] 07/01/2025 10:24:23 07/02/2025 11:29:38 Atrial fibrillation 64186510 I48.91 warfarin therapy [id number] Lyn Marmolejo MD [facility]) [address] [place] [phone] 5 07/03/2025 08:14:55 07/13/2025 10:06:37 Benign essential hypertension 6949496 I10 Coronary atherosclerosis 256562432 I25.119 Atrial fibrillation 4943 6004 I48.91 warfarin therapyd/c naproxen d/t hx of bleeding Hyperlipidemia 83503457 E78.00 Hypothyroidism 60469223 E03.9 [facility] 6699 9008 E21.3 [id number] Lyn Marmolejo MD [facility] ([facility]) [address] [place] [phone] 07/06/2025 11:22:40 07/07/2025 09:33:46 History of mechanical prosthetic mitral valve replacement 225763490 Z95.2 [id number] Lyn Marmolejo MD [facility] ([facility]) [address] [place] [phone] 5 07/09/2025 13:42:58 07/10/2025 14:24:59 Atrial fibrillation 16095191 I48.91 warfarin therapyd/c naproxen d/t hx of bleeding [id number] Lyn Marmolejo MD [facility] ([facility]) [address] [place] [phone] 5 07/14/2025 13:52:08 07/15/2025 10:22:44 Dysuria 90022906 R30.0 83116 will call with ua results [id number] Lyn Marmolejo MD [facility] ([facility]) [address] [place] [phone] 5 07/16/2025 12:05:46 07/17/2025 11:01:38 Atrial fibrillation 70292682 I48.91 warfarin therapyd/c naproxen d/t hx of bleeding [id number] Lyn Marmolejo MD [facility] ([facility]) [address] [place] [phone] 5 07/23/2025 11:35:38 07/24/2025 12:08:17 Atrial fibrillation 95860326 I48.91 warfarin therapyd/c naproxen d/t hx of bleeding [id number] Lyn Marmolejo MD [facility] ([facility]) [address] [place] [phone] 5 07/30/2025 11:32:37 07/31/2025 09:44:15 History of mechanical prosthetic mitral valve replacement 909116045 Z95.2 Health Concerns Section Related Observation LastModified by Organization Detai ls LastModified Time None Recorded Concern Status LastModified by Organization Details LastModified Time None Recorded Payers Encounter Date Sequence Insurance Name Policy Number Policy Hernandez Covered Member ID Hernandez Member ID Guarantor Name 07/30/2025 1 [place]ANT[place] - [place]PO) [id number] Odilia Ulloa [id number] Odilia Ulloa 07/30/2025 2 [place] Odilia Ulloa [id number] Odilia Ulloa OBGyn Episode No OBEpisode recorded.
--- OUTSIDE RECORDS SUMMARY | 2025-10-14 20:06 | XMS_ITS | Encounter Summary ---
Author Organization [facility] Address [address] [place] [address] Care Team Providers Care Tester Electronic Scale Name Role Phone Rico Muñiz MD, Sharan Jaime Primary Care Provider Encounter Details Date Type Department Care Team (Latest Contact Info) Description 09/05/2001 Outpatient Historical [facility] Sharan Gómez Jr., MD [address] [place] [address] OSTEOARTHROS NOS-UNSPEC (Primary Dx); OSTEOPOROSIS NOS Social History Tobacco Use Types Packs/Day Years Used Date Smoking Tobacco: Never Assessed Comments Unknown Sex and Gender Information Value Date Recorded Sex Assigned at Not on file 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
--- OUTSIDE RECORDS SUMMARY | 2025-10-14 20:06 | XMS_ITS | Encounter Summary ---
Author Organization [facility] Address [address] [facility] Attn: [place] [address] Care Team Providers Care Clerical Manager Name Role Phone Rico Muñiz MD, Sharan Jaime Primary Care Provider Encounter Details Date Type Department Care Team (Late st Contact Info) Description 12/20/2001 Outpatient Historical Sharan Gómez Jr., MD [address] [place] [address] Social History Tobacco Use Types Packs/Day Years Used Date Smoking Tobacco: Never Assessed Comments Unknown Sex and Gender Information Value Date Recorded Sex Assigned at Not on file 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
--- OUTSIDE RECORDS SUMMARY | 2025-10-14 20:06 | XMS_ITS | Encounter Summary ---
Author Organization [facility] Address [address] [place] [address] Care Team Providers Care Sap Business Objects Consultant Name Role Phone Rico Muñiz MD, Sharan Jaime Primary Care Provider Encounter Details Date Type Department Care Team (Latest Contact Info) Description 04/07/2002 Outpatient Historical [facility] Sharan Gómez Jr., MD [address] [place] [address] ENDOCARDITIS NOS (Primary Dx); DIABETES UNCOMPL ADULT-TYPE II (CMS/[facility]); HYPERTENSION NOS; [facility] ANTICOAG USE Social History Tobacco Use Types Packs/Day Years Used Date Smoking Tobacco: Never Assessed Comments Unknown Sex and Gender Information Value Date Recorded Sex Assigned at Not on file 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 Gender Identity Not on file Sexual Orientation Not on file documented as of this encounter Plan of Treatment Not on file documented as of this encounter Visit Diagnoses Diagnosis Endocarditis, valve unspecified, unspecified cause- Primary Type II or unspecified type diabetes mellitus without mention of complication, not stated as uncontrolled Unspecified essential hypertension prison (current) use of anticoagulants Long-term (current) use of anticoagulants documented in this encounter Care Teams Sap Business Objects Consultant Relationship Specialty Start Date End Date Sharan Gómez Jr., MD [address] [place] [address] PCP - General 08/10/05 documented as of this encounter
--- OUTSIDE RECORDS SUMMARY | 2025-10-14 20:06 | XMS_ITS | Encounter Summary ---
Author Organization [facility] Address [address] [place] [address] Care Team Providers Care Night Auditor Name Role Phone Rico Muñiz MD, Sharan Jaime Primary Care Provider Encounter Details Date Type Department Care Team (Latest Contact Info) Description 06/24/2001 Outpatient Historical [facility] [place] [address] [place] [address] Serge Arrington MD [address] [place] [address] Unspecified congenital anomaly of heart (Primary Dx) Social History Tobacco Use Types Packs/Day Years Used Date Smoking Tobacco: Never Assessed Comments Unknown Sex and Gender Information Value Date Recorded Sex Assigned at Not on file 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
--- OUTSIDE RECORDS SUMMARY | 2025-10-14 20:06 | XMS_ITS | Encounter Summary ---
Author Organization [facility] Address [address] [place] [address] Care Team Providers Care Vault Mechanic Name Role Phone Rico Muñiz MD, Sharan Jaime Primary Care Provider Encounter Details Date Type Department Care Team (Latest Contact Info) Description 07/06/2006 Outpatient Historical [facility] [address] [place] [address] Jennifer Cash MD NO ADDRESS ON FILE Unspecified Essential Hypertension (Primary Dx); Other and Unspecified Hyperlipidemia; Hypercalcemia; Routine Medical Exam Social History Tobacco Use Types Packs/Day Years Used Date Smoking Tobacco: Never Assessed Comments Unknown Sex and Gender Information Value Date Recorded Sex Assigned at Not on file 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
--- OUTSIDE RECORDS SUMMARY | 2025-10-14 20:06 | XMS_ITS | Encounter Summary ---
Author Organization [facility] Address [address] [place] [address] Care Team Providers Care Leg Breaker Name Role Phone Rico Muñiz MD, Sharan Jaime Primary Care Provider Encounter Details Date Type Department Care Team (Latest Contact Info) Description 05/16/2001 Outpatient Historical [facility] Sharan Gómez Jr., MD [address] [place] [address] Unspecified essential hypertension (Primary Dx); nursing home (current) use of anticoagulants Social History Tobacco Use Types Packs/Day Years Used Date Smoking Tobacco: Never Assessed Comments Unknown Sex and Gender Information Value Date Recorded Sex Assigned at Not on file 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
--- OUTSIDE RECORDS SUMMARY | 2025-10-14 20:06 | XMS_ITS | Encounter Summary ---
Author Organization [facility] Address [address] [place] [address] Care Team Providers Care Rn Procedures Name Role Phone Rico Muñiz MD, Sharan Jaime Primary Care Provider Encounter Details Date Type Department Care Team (Latest Contact Info) Description 11/14/2001 Outpatient Historical [facility] Sharan Gómez Jr., MD [address] [place] [address] OSTEOARTHROS NOS-UNSPEC (Primary Dx); HEART VALVE REPLAC NEC Social History Tobacco Use Types Packs/Day Years Used Date Smoking Tobacco: Never Assessed Comments Unknown Sex and Gender Information Value Date Recorded Sex Assigned at Not on file 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
--- OUTSIDE RECORDS SUMMARY | 2025-10-14 20:06 | XMS_ITS | Encounter Summary ---
Author Organization [facility] Address [address] [place] [address] Care Team Providers Care Wireless Internet Installer Name Role Phone Rico Muñiz MD, Sharan Jaime Primary Care Provider Encounter Details Date Type Department Care Team (Latest Contact Info) Description 06/24/2001 Outpatient Historical [facility] [place] [address] [place] [address] Serge Arrington MD [address] [place] [address] Mitral valve disorder (Primary Dx); Unspecified essential hypertension; Other and unspecified hyperlipidemia; Dizziness and giddiness Social History Tobacco Use Types Packs/Day Years Used Date Smoking Tobacco: Never Assessed Comments Unknown Sex and Gender Information Value Date Recorded Sex Assigned at Not on file 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
--- OUTSIDE RECORDS SUMMARY | 2025-10-14 20:06 | XMS_ITS | Encounter Summary ---
Author Organization [facility] Address [address] [place] [address] Care Team Providers Care Production Material Coordinator Name Role Phone Rico Muñiz MD, Sharan Jaime Primary Care Provider Encounter Details Date Type Department Care Team (Latest Contact Info) Description 08/05/2001 Outpatient Historical [facility] Shraan Gómez Jr., MD [address] [place] [address] Generalized anxiety disorder (Primary Dx); Hypopotassemia Social History Tobacco Use Types Packs/Day Years Used Date Smoking Tobacco: Never Assessed Comments Unknown Sex and Gender Information Value Date Recorded Sex Assigned at Not on file 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
--- OUTSIDE RECORDS SUMMARY | 2025-10-14 20:06 | XMS_ITS | Continuity of Care Document ---
Author Organization DAI Haas [facility], [place], [facility] ([facility]) Address [address] [place] [address] Care Team Providers Care Applications Development Analyst Name Role Phone LYN MARMOLEJO Primary Care Provider Assessment No assessment recorded. Plan of Treatment Reminders Order Date Submit Date Provider Last Modified By Organization Details Last Modified Time Details Appointments None record ed. Lab PT/INR 025 09/02/20 QUENTIN [facility]), [address] [place], [address], 13:34:27 Referral None record ed. Procedures None record ed. Surgeries None record ed. Imaging None record ed. Medication Orders None record ed. Patient TargetsNo targets recorded. Patient InstructionsNo instructions recorded. Reason for Referral None Reported. Results Created Date Observation Date Name Description Value Unit Range Abnormal Flag Note LastModifiedBy Organization Detail LastModifiedTime 08/07/2008/07/2025 PT/IN R Protime 26.3 Not Available [facility]) [address] [place], [address], 08/07/2025 11:40:14 08/07/20 25 08/07/2025 PT/IN R INR 2.2 Not Available [facility] ([facility]) [address] [place], [address], 08/07/2025 11:40:14 10/2008/17/2025 CBC WBC 6.3 x10 4.0-10 .5 Not Available [facility] [address] [facility], [place], [address], 08/17/2025 15:57:00 08/17/20 25 08/17/2025 CBC RBC 3.45 x10 3.50-5 .50 low Not Available [facility] [address] [facility], [place], [address], 08/17/2025 15:57:00 08/17/20 25 08/17/2025 CBC HGB 12.4 g/dL 12.0-1 6.0 Not Available [facility] [address] [facility], [place], [address], 08/17/2025 15:57:00 08/17/20 25 08/17/2025 CBC HCT 37.7 % 37.0-4 7.0 Not Available [facility] [address] [facility], [place], [address], 08/17/2025 15:57:00 08/17/20 25 08/17/2025 CBC MCV 109.2 fL 80.0-9 9.9 high Not Available [facility] [address] [facility], [place], [address], 08/17/2025 15:57:00 08/17/20 25 08/17/2025 CBC MCH 36.0 pg 27.0-3 2.0 high Not Available [facility] [address] [facility], [place], [address], 08/17/2025 15:57:00 08/17/20 25 08/17/2025 CBC MCHC 32.9 g/dL 32.0-3 6.0 Not Available [facility] [address] [facility], [place], [address], 08/17/2025 15:57:00 08/17/20 25 08/17/2025 CBC RDW 12.7 % 11.5-1 4.5 Not Available [facility] [address] [facility], [place], [address], 08/17/2025 15:57:00 08/17/20 25 08/17/2025 CBC plt 239.0 x10 140.0- 451.0 Not Available [facility] [address] [facility] [address], [place], [address], 08/17/2025 15:57:00 08/17/20 25 08/17/2025 CBC lymphocytes % 27.7 % 20.0-5 0.0 Not Available [facility] [address] [facility] [address], [place], [address], 08/17/2025 15:57:00 08/17/20 25 08/17/2025 CBC granulcytes % 56.9 % 30.0-7 0.0 Not Available [facility] [address] [facility] [address], [place], [address], 08/17/2025 15:57:00 08/17/20 25 08/17/2025 CBC monocytes % 10.1 % 2.0-16 .0 Not Available [facility] [address] [facility] [address], [place], [address], 08/17/2025 15:57:00 08/17/20 25 08/17/2025 CBC granulcytes# 3.6 x10 Not Cyndi ilable [facility] [address] [address], [place], [address], 08/17/2025 15:57:00 08/17/20 25 08/17/2025 CBC lymphocytes # 1.8 x10 Not Available [facility] [address] [address], [place], [address], 08/17/2025 15:57:00 08/17/20 25 08/17/2025 CBC monocytes # 0.6 x10 Not Avai lable [facility] [address] [facility] [address], [place], [address], 08/17/2025 15:57:00 08/17/20 25 08/17/2025 TSH TSH 0.81 uIU/m L 0.49-3 .82 Not Available [facility] [address] [facility] [address], [place], [address], 08/17/2025 16:04:05 08/17/2008/18/2025 PERIP HERAL BLOOD SMEAR REVIE W peripheral blood smear review Macro cytos is 1 + Ovalo cytes 1 + Polyc hroma mikhail 1 + Revie w of the perip heral smear revea ls adequ ate numbe rs of plate lets. Revie w of perip heral smear confi jace autom ated resul ts. Not Available [employer] [facility] [address] , [place], [address], 08/18/2025 15:11:08 08/17/2008/19/2025 METHY LMALO SE ACID [...] : 63-24 1 nmol/ L Not Available [email or web address] [facility] [address] [place], [address], 08/20/2025 00:38:15 08/17/2008/19/2025 METHY LMALO SE ACID [...] for clini luisito purpo ses. Not Available [email or web address] [facility] [address] [place], [address], 08/20/2025 00:38:15 08/17/20 25 08/19/2025 PROTE IN, TOTAL AND PROTE IN ELECT ROPHO RESIS W/ REFL [place] protein, total 7.1 g/dL 6.1-8. 1 normal Not Available [facility] [address] [place], [address], 08/20/2025 00:38:16 08/17/20 25 08/19/2025 PROTE IN, TOTAL AND PROTE IN ELECT ROPHO RESIS W/ REFL [place] albumin 4.5 g/dL 3.8-4. 8 normal Not Available [address], [address], 08/20/2025 00:38:16 08/17/20 25 08/19/2025 PROTE IN, TOTAL AND PROTE IN ELECT ROPHO RESIS W/ REFL [place] alpha 1 globulin 0.3 g/dL 0.2-0. 3 normal Not Available [address], [address], 08/20/2025 00:38:16 08/17/20 25 08/19/2025 PROTE IN, TOTAL AND PROTE IN ELECT ROPHO RESIS W/ REFL [place] alpha 2 globulin 0.5 g/dL 0.5-0. 9 normal Not Available [address], [address], 08/20/2025 00:38:16 08/17/20 25 08/19/2025 PROTE IN, TOTAL AND PROTE IN ELECT ROPHO RESIS W/ REFL [place] beta 1 globulin 0.4 g/dL 0.4-0. 6 normal Not Available [address], [address], 08/20/2025 00:38:16 08/17/20 25 08/19/2025 PROTE IN, TOTAL AND PROTE IN ELECT ROPHO RESIS W/ REFL [place] beta 2 globulin 0.3 g/dL 0.2-0. 5 normal Not Available [address], [address], 08/20/2025 00:38:16 08/17/20 25 08/19/2025 PROTE IN, TOTAL AND PROTE IN ELECT ROPHO RESIS W/ REFL [place] gamma globulin 1.1 g/dL 0.8-1. 7 normal Not Available [facility] [address] [place], [address], 08/20/2025 00:38:16 08/17/2008/19/2025 PROTE IN, TOTAL AND PROTE IN ELECT ROPHO RESIS W/ REFL [place] interpretati on No restr icted band (M-sp mera) seen. Not Available [facility] [address] [place], [address], 08/20/2025 00:38:16 08/17/2008/19/2025 PTH, INTAC T (ICMA [...] Joie l High Not Available [facility] [address] [place], [address], 08/20/2025 00:38:16 08/17/20 25 08/19/2025 PTH, INTAC T (ICMA ) AND IONIZ ED CALCI UM calcium 10.2 mg/dL 8.6-10 .4 normal Not Available [facility] [address], [address], 08/20/2025 00:38:16 08/17/2008/19/2025 PTH, INTAC T (ICMA ) AND IONIZ ED CALCI UM calcium, ionized 5.6 mg/dL 4.7-5. 5 high Not Available [facility] [address] [place], [address], 08/20/2025 00:38:16 08/17/20 25 08/19/2025 T4, FREE T4, free 1.9 NG/dL 0.8-1. 8 high Not Available [facility] [address] [place], [address], 08/20/2025 00:38:17 08/17/20 25 08/19/2025 VITAM IN B12 vitamin B12 >2000 pg/mL 200-11 00 high Not Available [facility] [address] [facility] [address] [facility] [place], [address], 08/20/2025 00:38:18 08/17/20 25 08/17/2025 PT/IN R Protime 21.5 Not Available [facility] ([facility]) [address] [place], [address], 08/17/2025 14:33:48 08/17/20 25 08/17/2025 PT/IN R INR 1.8 Not Available [facility] ([facility]) [address] [place], [address], 08/17/2025 14:33:48 09/02/20 25 09/02/2025 PT/IN R Protime 29.0 Not Available [facility] ([facility]) [address] [place], [address], 09/02/2025 13:17:30 09/02/20 25 09/02/2025 PT/IN R INR 2.4 Not Available [facility] ([facility]) [address] [place], [address], 09/02/2025 13:17:30 08/05/20 25 08/04/2025 XR, cervi luisito spine , 2 or 3 view No observ ation record ed. [facility] [address] [place], [address], 08/07/2025 13:25:55 08/05/2008/04/2025 XR, shoul vito, 2 or more view No observ ation record ed. [facility] [address] [place], [address], 08/07/2025 13:25:55 09/09/2009/08/2025 US, echoc ardio gram, trans thora cic, compl ete, w/ color flow No observ ation record ed. [facility] [address] [place], [address], 09/11/2025 09:19:21 09/15/2009/15/2025 MAMMO , scree ilya, digit al, bilat eral No observ ation record ed. [email or web address] [place] [address] [address] [place], [address], 09/16/2025 16:09:54 Result Notes None recorded. 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 5 07:55:28 Gastroes ophageal reflux disease 377432813 Active 2022 FELISHA DESIR null, [facility] 5 07:55:28 Fracture of upper end of humerus 629751458 Completed 202201/02/2025 CLOSED FRACTURE OF PROXIMAL END OF RIGHT HUMERUS, SEQUELA FELISHA DESIR null, [facility] 5 07:56:03 History of mechanical engineer al prosthet ic mitral valve replacem ent 297790156 Active 2022 FELISHA hamilton, [facility] 5 07:56:22 Atrial fibrilla tion 07334866 [facility] 20[facility] 14:45:05 Coronary atherosc lerosis 425879873 Active 2022 bare metal stents to circ and LAD 2011 FELISHA hamilton, [facility] 14:46:30 Iron deficien cy anemia 57413635 [facility] 2022 [facility] 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 3 14:45:59 Anxiety 92290444 Active 2022 FELISHA hamilton, [facility] 3 14:46:54 Viral hepatiti s C 31893776 Active 2022 FELISHA hamilton, [facility] 5 07:55:28 Moderate recurren t major depressi on 43532317 Active 2023 FELISHA DESIR null, [facility] 5 07:55:28 Need for personal care assistan ce 72550854370 619071 Active 2023 FELISHA DESIR null, [facility] 5 07:55:28 Frail elderly 089296506 Active 2023 FELISHA DESIR null, [facility] 5 07:55:28 Seasonal allergic rhinitis 082922478 Active 2023 FELISHA DESIR null, [facility] 5 07:55:28 Chronic pain 78910260 Active 2023 FELISHA DESIR null, [facility] 5 07:55:28 Dementia 17314513 Active 2023 FELISHA DESIR null, [facility] 5 07:55:28 Constipa tion 19762517 Active 2023 FELISHA DESIR null, [facility] 5 07:55:44 Hyperlip idemia 41202858 Active 2024 FELISHA DESIR null, [facility] 5 07:59:38 Occult blood detected in feces 53962922 Active 2024 FELISHA DESIR null, [facility] 5 09:13:35 Mean corpuscu lar volume above referenc e range 166327373 Active 2024 FELISHA DESIR null, [facility] 5 09:14:07 Hypercal cemia 40767182 Active 2024 FELISHA DESIR null, [facility] 5 10:07:49 Vitamin D deficien cy 22351760 Active 2024 Lyn Marmolejo MD [address] [place] [address], [address], [facility] [place] 5 12:54:55 Hyperpar athyroid ism 81081998 Active 2024 Lyn Marmolejo MD [address] [place] [address], [address], [facility] [place] 5 12:54:56 Dysuria 05232967 Active 2024 Dotty hamilton, [facility], [place] 5 14:08:08 Problem Notes None recorded. Procedures Surgical History Date Name Laterality Status Provider Name and Address Organization Details Recorded Time 2024 Most Recent Mammogram completed FELISHA DESIR [facility] 5 16:09:39 2024 esophagogastroduodenoscopy completed YANELIS WELSH [facility] 5 12:23:16 2024 colonoscopy completed FELISHA DESIR [facility] LJosueLJosueCJosue 5 10:20:11 2023 esophagogastroduodenoscopy completed KIARA DUCKWORTH [facility] 4 12:40:14 2023 colonoscopy completed Lyn Marmolejo MD [address] [place] [address], [address], [facility] [place] 5 10:19:30 cholecystectomy completed FELISHA DESIR [facility] [place] 3 14:48:40 replacement of mitral valve complete d FELISHA DESIR [facility] 3 14:49:22 section completed FELISHA DESIR [facility] 3 15:14:43 Imaging Results None recorded. Procedure Notes None recorded. Medical Equipment None Reported. Allergies Allergen ID Allergen Name Allergen Category Reaction Reaction Severity Criticality Documentation Date Start Date Code Code System Note Provider Name and Address Organization Details Recorded Time 1376 morphine medicatio n Not available Not available Not available 02/07/2023 7052 RxNorm Dotty Celis [facility] 3 10:45:47 1377 diltiazem Not available Not available Not available Not available 02/07/2023 3443 RxNorm Dotyt Celis [facility] 3 10:45:54 4552 Bactrim medicatio n other severe high 04/17/2023 65940 9 RxNorm do not give d/t couma din Lola Vidal [facility] 4 13:34:33 45632 diltiazem hydrochlo ride medicatio n Not available Not available Not available 05/26/2023 1 RxNorm Comme nt: Recor ded 12/29 7:56A M by Yanelis iKtchen on, BEAM DYER RECESSED VAT, 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 ; Promo talib; Signi fican ce: *; Reaso n: Drug aller gy; ; FELISHA DESIR [facility] 3 12:26:44 10832 morphine sulfate medicatio n Not available Not available Not available 05/26/2023 13064 RxNorm Comme nt: Recor ded 12/29 7:56A M by Yanelis Kitchen on, BE[employer]ER RECESSED VAT, 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 ; Promo talib; Signi fican ce: *; Reaso n: Drug aller gy; ; FELISHA DESIR [facility] 3 12:26:48 Medications Name Sig [...] Felisha Desir LPN (Authori zed through Lyn Mramolejo MD), Refill Request; Refill Quantity : 60; [...] THSC Levothyro xine Sodium daily 06/08 completed 68156; Recorded 01/09/20 6:06PM by Shirley Quevedo (Authori [...] Social History Question Answer Notes LastModified by [employer] Details LastModified Time Tobacco Smoking Status Former Smoker FELISHA DESIR [facility] 04/17/2023 14:48:01 What Was The Date Of Your Most Recent Tobacco Screening? 05/27/2025 [email or web address] Information not available 05/27/2025 Sex: Unknown Functional Status Question Answer Note LastModified by [employer] Details LastModified Time Do you use any illicit or recreational drugs? No [email or web address] Information not available 04/17/2023 Do you or have you ever used any other forms of tobacco or nicotine? No Information not available 06/29/2023 What is your level of alcohol consumption? None [email or web address] Information not available 04/17/2023 Mental Status None [...] quadrivalent, PF 2 completed FELISHA DESIR null, [facility] 10/10/2024 08:38:58 COVID-19, mRNA, LNP-S, PF, 100 mcg/0.5mL dose or 50 mcg/0.25mL dose 1 completed FELISHA DESIR null, [facility] 10/10/2024 08:38:58 COVID-19, mRNA, LNP-S, PF, 100 mcg/0.5mL dose or 50 mcg/0.25mL dose 1 completed FELISHA DESIR null, [facility] 10/10/2024 08:38:58 COVID-19, mRNA, LNP-S, PF, 100 mcg/0.5mL dose or 50 mcg/0.25mL dose 2 completed FELISHA hamilton, [facility] 10/10/2024 08:38:58 Pneumococcal conjugate PCV20, polysaccharide [id number] conjugate, adjuvant, PF 3 completed FELISHA hamilton, [facility] 10/10/2024 08:38:58 COVID-19, mRNA, LNP-S, bivalent, PF, 50 mcg/0.5 mL or 25mcg/0.25 mL dose 3 completed FELISHA hamilton, [facility] 10/10/2024 08:38:58 pneumococcal polysaccharide PPV23 3 completed FELISHA DESIR null, [facility] 04/17/2023 12:02:00 Tdap 1 completed FELISHA hamilton, [facility] 10/10/2024 08:38:58 Influenza, split virus, trivalent, PF 3 completed FELISHA hamilton, [facility] 04/17/2023 12:02:00 influenza, split (incl. purified surface antigen) 0 completed FELISHA DESIR null, [facility] 04/17/2023 12:02:00 Hep A, adult 1 completed FELISHA DESIR null, [facility] 10/10/2024 08:38:58 Hep A, adult 9 completed FELISHA DESIR null, [facility] 10/10/2024 08:38:58 Influenza, split virus, quadrivalent, PF 1 completed FELISHA DESIR null, [facility] 10/10/2024 08:38:58 Influenza, split virus, quadrivalent, PF 9 completed FELISHA DESIR null, [facility] 10/10/2024 08:38:58 Influenza, MDCK, trivalent, PF 4 completed FELISHA DESIR null, [facility] 10/10/2024 08:38:58 Influenza, MDCK, quadrivalent, preservative 3 completed FELISHA DESIR null, [facility] 10/10/2024 08:38:58 pneumococcal polysaccharide PPV23 8 completed Lola hamilton, [facility] 07/02/2024 08:41:52 Influenza, split virus, quadrivalent, PF 8 completed Lola Vidal null, [facility] 07/02/2024 08:41:52 zoster recombinant 3 completed Lola hamilton, [facility] 07/02/2024 14:52:40 COVID-19, mRNA, LNP-S, PF, 50 mcg/0.5 mL 4 completed FELISHA hamilton, [facility] 10/10/2024 08:38:58 Influenza, MDCK, trivalent, preservative 4 completed FELISHA hamilton [place] [facility] 10/10/2024 08:38:58 Influenza, high-dose, trivalent, PF 5 completed Not Available [facility] 10/13/2025 09:55:50 Past Encounters Encounter ID Performer Location Encounter Start Date Encounter Closed Date Diagnosis/Indication Diagnosis SNOMED-CT Code Diagnosis ICD10 Code Diagnosis IMO Codes Diagnosis Note [id number] Lyn Marmolejo MD [facility] ([facility]) [address] [place] [address] 5 08/04/2025 10:06:02 08/04/2025 15:14:44 Right cervical root neuropathy 1135667589 3778952 M54.12 36279526 Pain of ri t shoulder region 2645045023 M25.511 [id number] Lyn Marmolejo MD [facility] ([facility]) [address] [place], [place] [address] 08/07/2025 11:39:45 08/10/2025 10:28:08 Atrial fibrillation 38407686 I48.91 warfarin therapyd/c naproxen d/t hx of bleeding [id number] Lyn Marmolejo MD [facility] ([facility]) [address] [place], [place] [address] 08/17/2025 13:17:17 08/18/2025 09:51:22 History of mechanical prosthetic mitral valve replacement 503507857 Z95.2 Mean corpu scular volume above reference range 660379001 R71.8 824481 Hypercalcemia 81565692 E 83.52 9955 Drug therapy finding 309 389859 Z79.899 38750777 Generalize d anxiety disorder 97120469 F41.1 [id number] Lyn Marmolejo MD [facility] ([facility]) [address] [place] [phone] 09/02/2025 13:16:47 09/03/2025 10:16:00 History of mechanical prosthetic mitral valve replacement 315759327 Z95.2 Health Concerns Section Related Observation LastModified by Organization Detai ls LastModified Time None Recorded Concern Status LastModified by Organization Details LastModified Time None Recorded Payers Encounter Date Sequence Insurance Name Policy Number Policy Hernandez Covered Member ID Hernandez Member ID Guarantor Name 09/02/2025 1 [id number] - [place]PO) [id number] Odilia Ulloa [id number] Odilia Ulloa 09/02/2025 2 [place] Odilia Ulloa [id number] Odilia Ulloa OBGyn Episode No OBEpisode recorded.
--- OUTSIDE RECORDS SUMMARY | 2025-10-14 20:06 | XMS_ITS | Continuity of Care Document ---
Author Organization DAI Haas [facility] Luis M, [place], [facility] ([facility]) Address [address] [place] [address] Care Team Providers Care Adolescent Counselor Name Role Phone LYN MARMOLEJO Primary Care Provider Assessment No assessment recorded. Plan of Treatment Reminders Order Date Submit Date Provider Last Modified By Organization Details Last Modified Time Details Appointments None record ed. Lab PT/INR 025 07/23/20 QUENTIN [facility]), [address] [place], [address], 11:41:21 Referral None record ed. Procedures None record ed. Surgeries None record ed. Imaging None record ed. Medication Orders None record ed. Patient TargetsNo targets recorded. Patient InstructionsNo instructions recorded. Reason for Referral None Reported. Results Created Date Observation Date Name Description Value Unit Range Abnormal Flag Note LastModifiedBy Organization Detail LastModifiedTime 06/24/2006/24/2025 PT/IN R Protime 40.9 Not Available [facility]) [address] [place], [address], 06/24/2025 13:13:54 06/24/2006/24/2025 PT/IN R INR 3.4 Not Available [facility] ([facility]) [address] [place], [address], 06/24/2025 13:13:54 07/02/2007/02/2025 PT/IN R Protime 42.3 Not Available [facility] ([facility]) [address] [place], [address], 07/01/2025 10:25:07 07/02/20 25 07/02/2025 PT/IN R INR 3.5 Not Available [facility] ([facility]) [address] [place], [address], 07/01/2025 10:25:07 07/06/20 25 07/06/2025 PT/IN R Protime 39.5 Not Available [facility] ([facility]) [address] [place], [address], 07/06/2025 11:23:26 07/06/20 25 07/06/2025 PT/IN R INR 3.3 Not Available [facility] ([facility]) [address] [place], [address], 07/06/2025 11:23:26 07/09/20 25 07/09/2025 PT/IN R Protime 34.6 Not Available [facility] ([facility]) [address] [place], [address], 07/09/2025 13:44:17 07/09/20 25 07/09/2025 PT/IN R INR 2.9 Not Available [facility] ([facility]) [address] [place], [address], 07/09/2025 13:44:17 07/14/20 25 07/14/2025 URINA LYSIS WITH MICRO color YELLOW Not Available [facility] [address] [place] [address], [address], 07/14/2025 14:52:32 07/14/20 25 07/14/2025 URINA LYSIS WITH MICRO clarity CLEAR Not Available [facility] [address], [place], [address], 07/14/2025 14:52:32 07/14/20 25 07/14/2025 URINA LYSIS WITH MICRO glu NEGATI VE Not Available [facility] [address], [place], [address], 07/14/2025 14:52:32 07/14/2007/14/2025 URINA LYSIS WITH MICRO bili NEGATI VE Not Available [facility] [address], [place], [address], 07/14/2025 14:52:32 07/14/2007/14/2025 URINA LYSIS WITH MICRO ket NEGATI VE Not Available [facility] [address], [place], [address], 07/14/2025 14:52:32 07/14/20 25 07/14/2025 URINA LYSIS WITH MICRO S.g 1.010 1.005- 1.025 Not Available [facility] [address], [place], [address], 07/14/2025 14:52:32 07/14/20 25 07/14/2025 URINA LYSIS WITH MICRO pH 5.0 5.0-7. 0 Not Available [facility] [address], [place], [address], 07/14/2025 14:52:32 07/14/20 25 07/14/2025 URINA LYSIS WITH MICRO pro NEGATI VE Not Available [facility] [address], [place], [address], 07/14/2025 14:52:32 07/14/20 25 07/14/2025 URINA LYSIS WITH MICRO uro 0.2 E.U./D L Not Available [facility] [address], [place], [address], 07/14/2025 14:52:32 07/14/20 25 07/14/2025 URINA LYSIS WITH MICRO nit NEGATI VE Not Available [facility] [address], [place], [address], 07/14/2025 14:52:32 07/14/20 25 07/14/2025 URINA LYSIS WITH MICRO blo NEGATI VE Not Available [facility] [address], [place], [address], 07/14/2025 14:52:32 07/14/20 25 07/14/2025 URINA LYSIS WITH MICRO jose elias NEGATI VE Not Available [facility] [address], [place], [address], 07/14/2025 14:52:32 07/14/20 25 07/14/2025 URINA LYSIS WITH MICRO WBC 0-1 abnormal Not Available [facility] [address], [place], [address], 07/14/2025 14:52:32 07/14/20 25 07/14/2025 URINA LYSIS WITH MICRO RBC NEGATI VE Not Available [facility] [address], [place], [address], 07/14/2025 14:52:32 07/14/20 25 07/14/2025 URINA LYSIS WITH MICRO epi cells 1-2 abnormal Not Available [facility] [address], [place], [address], 07/14/2025 14:52:32 07/14/20 25 07/14/2025 URINA LYSIS WITH MICRO bacteria 1-2 HYALIN E CAST abnormal Not Available [facility] [address] [facility] [address], [place], [address], 07/14/2025 14:52:32 07/14/2007/14/2025 URINA LYSIS WITH MICRO other NEG Not Available [facility] [address] [facility] [address], [place], [address], 07/14/2025 14:52:32 07/14/2007/16/2025 CULTU RE, URINE , ROUTI NE culture, urine, routine SEE NOTE CULTU RE, URINE , ROUTI NE Micro Numbe r: [id number] Test Statu s: Final Speci men Sourc e: Urine Speci men Quali ty: Adequ ate Resul t: No Growt h Not Available [employer] [facility] [address] [place], [address], 07/16/2025 02:51:13 07/17/2007/17/2025 PT/IN R Protime 34.4 Not Available [facility] ([facility]) [address] [place], [address], 07/16/2025 12:07:15 07/17/2007/17/2025 PT/IN R INR 2.9 Not Available [facility] ([facility]) [address] [place], [address], 07/16/2025 12:07:15 07/23/2007/23/2025 PT/IN R Protime 47.0 Not Available [facility] ([facility]) [address] [place], [address], 07/23/2025 11:36:06 07/23/2007/23/2025 PT/IN R INR 3.9 Not Available [facility] ([facility]) [address] [place], [address], 07/23/2025 11:36:06 08/05/2008/04/2025 XR, cervi luisito spine , 2 or 3 view No observ ation record ed. [facility] [address] [place], [address], 08/07/2025 13:25:55 08/05/20 25 08/04/2025 XR, shoul vito, 2 or more view No observ ation record ed. [facility] [address] [place], [address], 08/07/2025 13:25:55 09/09/2009/08/2025 US, echoc ardio gram, trans thora cic, compl ete, w/ color flow No observ ation record ed. [facility] [address] [place], [address], 09/11/2025 09:19:21 09/15/2009/15/2025 MAMMO , scree ilya, digit al, bilat eral No observ ation record ed. [email or web address] [place] [address] [address] [place], [address], 09/16/2025 16:09:54 Result Notes None recorded. Problems Name Problem SNOMED Code Status Onset Date Resolution Date Notes Provider Name and Address Organization Details Recorded Time Depressi ve disorder 24196504 Completed 202010/14/2021 Depressi on - Status is Inactive ; 10/14/20 11:08AM by Maryellen Marmolejo PA-C, Annotati on/Adden dum; Promoted ; acuity set as *; FELISHA hamilton, [facility] 5 07:56:57 Herpes zoster 4479180 Completed 202201/02/2025 SHINGLES FELISHA hamilton [facility] 5 07:56:03 Dysthymi a 60687524 Active 2022 DEPRESSI ON WITH ANXIETY FELISHA hamilton, [facility] 5 07:55:28 Benign essentia l hyperten jovanni 3271655 Active 2022 FELISHA DESIR null, [facility] 5 07:55:28 Gastroes ophageal reflux disease 716667658 Active 2022 FELISHA DESIR null, [facility] 5 07:55:28 Fracture of upper end of humerus 938033388 Completed 202201/02/2025 CLOSED FRACTURE OF PROXIMAL END OF RIGHT HUMERUS, SEQUELA FELISHA hamilton, [facility] 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 5 07:56:22 Atrial fibrilla tion 09868242 Active 2022 FELISHA hamilton, [facility] 3 14:45:05 Coronary atherosc lerosis 627147275 Active 2022 bare metal stents to circ and LAD 2011 FELISHA hamilton, [facility] 3 14:46:30 Iron deficien cy anemia 20727099 Active 2022 FELISHA hamilton, [facility] 5 07:55:28 Hypothyr oidism 19056410 Active 2022 FELISHA hamilton, [facility] 3 14:45:59 Anxiety 80273433 Active 2022 FELISHA hamilton, [facility] 3 14:46:54 Viral hepatiti s C 26040129 Active 2022 FELISHA DESIR null, [facility] 5 07:55:28 Moderate recurren t major depressi on 39289718 Active 2023 FELISHA DESIR null, [facility] 5 07:55:28 Need for personal care assistan ce 44918927392 441720 Active 2023 FELISHA DESIR null, [facility] 5 07:55:28 Frail elderly 390845350 Active 2023 FELISHA DESIR null, [facility] 5 07:55:28 Seasonal allergic rhinitis 215297939 Active 2023 FELISHA hamilton, [facility] 5 07:55:28 Chronic pain 78399920 Active 2023 FELISHA DESIR null, [facility] 5 07:55:28 Dementia 24218579 Active 2023 FELISHA DESIR null, [facility] 5 07:55:28 Constipa tion 25394403 Active 2023 FELISHA hamilton, [facility] 5 07:55:44 Hyperlip idemia 65948678 Active 2024 FELISHA DESIR null, [facility] 5 07:59:38 Occult blood detected in feces 14007901 Active 2024 FELISHA hamilton, [facility] 5 09:13:35 Mean corpuscu lar volume above referenc e range 706263780 Active 2024 FELISHA hamilton, [facility] 5 09:14:07 Hypercal cemia 12599641 Active 2024 FELISHA hamilton [facility], [place] 5 10:07:49 Vitamin D deficien cy 48889798 Active 2024 Lyn Marmolejo MD [address] [place] [address], [address], [facility], [place] 5 12:54:55 Hyperpar athyroid ism 81820681 Active 2024 Lyn Marmolejo MD [address] [place] [address], [address], [facility], [place] 5 12:54:56 Dysuria 95792869 Active 2024 Dotty hamilton [facility], [...] 2023 colonoscopy completed Lyn Marmolejo MD [address] [place] [address], [address], [facility], [place] 5 10:19:30 cholecystectomy completed FELISHA [facility] 3 14:48:40 replacement of mitral valve complete d FELISHA [facility] 3 14:49:22 section completed [facility] 3 15:14:43 Imaging Results None recorded. Procedure Notes None recorded. Medical Equipment None Reported. Allergies Allergen ID Allergen Name Allergen Category Reaction Reaction Severity Criticality Documentation Date Start Date Code Code System Note Provider Name and Address Organization Details Recorded Time 1376 morphine medicatio n Not available Not available Not available 02/07/2023 7052 RxNorm Dotty Celis [facility] 3 10:45:47 1377 diltiazem Not available Not available Not available Not available 02/07/2023 3443 RxNorm Dottylizzie Celis [facility] 3 10:45:54 4552 Bactrim medicatio n other severe high 04/17/2023 33583 9 RxNorm do not give d/t couma din Lola Vidal [facility] 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 05/27/2025 [email or web address] Information not available 05/27/2025 Sex: Unknown Functional Status Question Answer Note LastModified by Organizat ion Details LastModified Time Do you use any illicit or recreational drugs? No Information not available 04/17/2023 Do you or have you ever used any other forms of tobacco or nicotine? No [email or web address] Information not available 06/29/2023 What is your level of alcohol consumption? None [email or web address] Information not available 04/17/2023 Mental Status None recorded. Family History Relationship Description Onset Age of this Age Resolved Age Notes LastModified by Organization Details LastModified Time Unspecified Relation Coronary atherosclero sis [email or web address] Not available 06/29 15:13:48 Medical History No [...] or 50 mcg/0.25mL dose 1 [facility] 10/10/2024 08:38:58 COVID-19, mRNA, LNP-S, PF, 100 mcg/0.5mL dose or 50 mcg/0.25mL dose 2 [facility] 10/10/2024 08:38:58 Pneumococcal conjugate PCV20, polysaccharide DGA103 conjugate, adjuvant, PF 3 completed [facility] 10/10/2024 08:38:58 COVID-19, mRNA, LNP-S, bivalent, PF, 50 mcg/0.5 mL or 25mcg/0.25 mL dose 3 completed [facility] 10/10/2024 08:38:58 pneumococcal polysaccharide PPV23 3 completed [facility] 04/17/2023 12:02:00 Tdap 1 [...] 4 completed FELISHA hamilton [facility] 10/10/2024 08:38:58 Influenza, MDCK, trivalent, preservative 4 completed FELISHA hamilton [facility] 10/10/2024 08:38:58 Influenza, high-dose, trivalent, PF 5 completed Not Available [facility] 10/13/2025 09:55:50 Past Encounters Encounter ID Performer Location Encounter Start Date Encounter Closed Date Diagnosis/Indication Diagnosis SNOMED-CT Code Diagnosis ICD10 Code Diagnosis IMO Codes Diagnosis Note [id number] Lyn Marmolejo MD [facility] [address] [place] [address] 5 06/24/2025 12:18:01 06/30/2025 13:41:59 Hyperparathyroidism 98498118 E21.3 70589 corrected and ionized calcium are normalgfr 52 and stable Vitamin D deficiency 347 20766 E55.9 98906 [id number] Lyn Marmolejo MD [facility] [address] [place] [address] 07/01/2025 10:24:23 07/02/2025 11:29:38 Atrial fibrillation 76156319 I48.91 warfarin therapy [id number] Lyn Marmolejo MD [facility] [address] [place] [address] 5 07/03/2025 08:14:55 07/13/2025 10:06:37 Benign essential hypertension 6255251 I10 Coronary atherosclerosis 501524781 I25.119 Atrial fibrillation 4943 6004 I48.91 warfarin therapyd/c naproxen d/t hx of bleeding Hyperlipidemia 56298177 E78.00 Hypothyroidism 13073085 E03.9 Hyperparathyroidism 6699 9008 E21.3 42401 [id number] Lyn Marmolejo MD [facility] [address] [place] [address] 5 07/06/2025 11:22:40 07/07/2025 09:33:46 History of mechanical prosthetic mitral valve replacement 534392514 Z95.2 [id number] Lyn Marmolejo MD [facility] [address] [place] [address] 5 07/09/2025 13:42:58 07/10/2025 14:24:59 Atrial fibrillation 35521360 I48.91 warfarin therapyd/c naproxen d/t hx of bleeding [id number] Lyn Marmolejo MD [facility] [address] [place] [phone] 5 07/14/2025 13:52:08 07/15/2025 10:22:44 Dysuria 22731286 R30.0 92020 will call with ua results [id number] Lyn Marmolejo MD [facility] [address] [place] [phone] 5 07/16/2025 12:05:46 07/17/2025 11:01:38 Atrial fibrillation 23628577 I48.91 warfarin therapyd/c naproxen d/t hx of bleeding [id number] Lyn Marmolejo MD [facility] [address] [place] [phone] 5 07/23/2025 11:35:38 07/24/2025 12:08:17 Atrial fibrillation 27101656 I48.91 warfarin therapyd/c naproxen d/t hx of bleeding Health Concerns Section Related Observation LastModified by Organization Detai ls LastModified Time None Recorded Concern Status LastModified by Organization Details LastModified Time None Recorded Payers Encounter Date Sequence Insurance Name Policy Number Policy Hernandez Covered Member ID Hernandez Member ID Guarantor Name 07/23/2025 1 [place]ANT[place] - PPO) [id number] Odilia Ulloa [id number] Odilia Ulloa 07/23/2025 2 [place] Odilia Ulloa [id number] Odilia Ulloa OBGyn Episode No OBEpisode recorded.
--- OUTSIDE RECORDS SUMMARY | 2025-10-14 20:06 | XMS_ITS | Encounter Summary ---
Author Organization [facility] Address [address] [place] [address] Care Team Providers Care Water Gas Operator Name Role Phone Rico Muñiz MD, Sharan Jaime Primary Care Provider Encounter Details Date Type Department Care Team (Latest Contact Info) Description 02/03/2002 Outpatient Historical [facility] Sharan Gómez Jr., MD [address] [place] [address] HEART VALVE REPLAC NEC (Primary Dx); AFTERCARE RETIREMENT ANTICOAG USE Social History Tobacco Use Types Packs/Day Years Used Date Smoking Tobacco: Never Assessed Comments Unknown Sex and Gender Information Value Date Recorded Sex Assigned at Not on file 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
--- OUTSIDE RECORDS SUMMARY | 2025-10-14 20:06 | XMS_ITS | Encounter Summary ---
Author Organization [facility] Address [address] [place] [address] Care Team Providers Care Loan Servicing Officer Name Role Phone Rico Muñiz MD, Sharan Jaime Primary Care Provider Encounter Details Date Type Department Care Team (Latest Contact Info) Description 04/19/2001 Outpatient Historical [facility] Arun Nichols NO ADDRESS ON FILE Contusion of hand(s) (Primary Dx) Social History Tobacco Use Types Packs/Day Years Used Date Smoking Tobacco: Never Assessed Comments Unknown Sex and Gender Information Value Date Recorded Sex Assigned at Not on file 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
--- OUTSIDE RECORDS SUMMARY | 2025-10-14 20:06 | XMS_ITS | Continuity of Care Document ---
Author Organization DAI Valentine [facility], [place], [facility] ([facility]) Address [address] [place] [address] Care Team Providers Care Personnel Monitor Name Role Phone LYN MARMOLEJO Primary Care Provider Assessment Encounter Date Assessment Date Assessment LastModified by Organization Details LastModified Time 10/02/2025 10/02/2025 I reviewed the patient's recent labs, vital signs, medications, and plan of care. I recommend no other change sat this time. [email or web address] Not available 10/06/2025 13:18:51 Plan of Treatment Reminders Order Date Submit Date Provider Last Modified By Organization Details Last Modified Time Details Appointments None recorded . Lab BMP, serum or plasma 025 10/02/20 [place] [facility], [address], [address], 11:14:46 Referral None recorded . Procedures None recorded . Surgeries None recorded . Imaging None recorded . Medication Orders None recorded . Patient TargetsNo targets recorded. Patient InstructionsNo instructions recorded. Reason for Referral None Reported. Results Created Date Observation Date Name Description Value Unit Range Abnormal Flag Note LastModifiedBy Organization Detail LastModifiedTime 09/02/2009/02/2025 PT/IN R Protime 29.0 Not Available [facility] ([facility]) [address] [place], [address], 09/02/2025 13:17:30 09/02/20 25 09/02/2025 PT/IN R INR 2.4 Not Available [facility] ([facility]) [address] [place], [address], 09/02/2025 13:17:30 09/09/20 25 09/09/2025 CMP (FEMA LE) glucose 93.0 mg/dL 60.0-9 9.0 Not Available [facility] [address] [facility] [address], [place], [address], 09/09/2025 10:43:31 09/09/20 25 09/09/2025 CMP (FEMA LE) BUN (blood urea nitrogen) 20.0 mg/dL 10.0-2 6.0 Not Available [facility] [address] [address], [place], [address], 09/09/2025 10:43:31 09/09/20 25 09/09/2025 CMP (FEMA LE) creatinine (serum) 0.9 mg/dL 0.4-1. 5 Not Available [facility] [address] [facility] [address], [place], [address], 09/09/2025 10:43:31 09/09/20 25 09/09/2025 CMP (FEMA LE) BUN/creatini ne ratio 22.22 ratio Not Available [facility] [address] [address], [place], [address], 09/09/2025 10:43:31 09/09/20 25 09/09/2025 CMP (FEMA LE) eGFR calculated 64.9 Not Available [facility] [address] [address], [place], [address], 09/09/2025 10:43:31 09/09/20 25 09/09/2025 CMP (FEMA LE) total protein 7.5 g/dL 6.0-8. 5 Not Available [facility] [address] [address], [place], [address], 09/09/2025 10:43:31 09/09/20 25 09/09/2025 CMP (FEMA LE) total bilirubin 1.1 mg/dL 0.2-1. 3 Not Available [facility] [address] [facility], [place], [address], 09/09/2025 10:43:31 09/09/20 25 09/09/2025 CMP (FEMA LE) albumin 5.0 g/dL 3.5-5. 5 Not Available [facility] [address] [facility], [place], [address], 09/09/2025 10:43:31 09/09/20 25 09/09/2025 CMP (FEMA LE) globulin 2.5 calc Not Available [facility] [place] [facility] [address] [place] [facility] [address], [place], [address], 09/09/2025 10:43:31 09/09/20 25 09/09/2025 CMP (FEMA LE) AST (SGOT) 35.0 U/L 0.0-46 .0 Not Available [facility] [address] [facility], [place], [address], 09/09/2025 10:43:31 09/09/20 25 09/09/2025 CMP (FEMA LE) altv (SGPT) 17.0 U/L 13.0-6 9.0 normal Not Available [facility] [address] [facility], [place], [address], 09/09/2025 10:43:31 09/09/20 25 09/09/2025 CMP (FEMA LE) A/G ratio 2.0 ratio Not Available [facility] [address] [facility], [place], [address], 09/09/2025 10:43:31 09/09/20 25 09/09/2025 CMP (FEMA LE) ALP phos 77.0 U/L 30.0-1 40.0 normal Not Available [facility] [place] [facility] [address] [facility], [place], [address], 09/09/2025 10:43:31 09/09/20 25 09/09/2025 CMP (FEMA LE) calcium 10.4 mg/dL 8.4-10 .5 Not Available [facility] [place] [address] [facility], [place], [address], 09/09/2025 10:43:31 09/09/2009/09/2025 CMP (FEMA LE) sodium 139.0 mmol/ L 136.0- 145.0 Not Available [facility] [address] [facility] [address], [place], [address], 09/09/2025 10:43:31 09/09/20 25 09/09/2025 CMP (FEMA LE) potassium 4.2 mmol/ L 3.5-5. 1 Not Available [facility] [address] [facility] [address], [place], [address], 09/09/2025 10:43:31 09/09/20 25 09/09/2025 CMP (FEMA LE) chloride 105.0 mmol/ L 98.0-1 10.0 normal Not Available [facility] [address] [facility] [address], [place], [address], 09/09/2025 10:43:31 09/09/20 25 09/09/2025 CMP (FEMA LE) C02 28.0 mmol/ L 22.0-3 1.0 Not Available [facility] [address] [facility] [address], [place], [address], 09/09/2025 10:43:31 09/09/20 25 09/09/2025 CMP (FEMA LE) anion gap 6.0 calc Not Available [facility] [address] [facility], [place], [address], 09/09/2025 10:43:31 09/09/20 25 09/09/2025 CMP (FEMA LE) osmolality 289.3 calc Not Available [facility] [place] [facility] [address] [facility] [address], [place], [address], 09/09/2025 10:43:31 09/17/20 25 09/17/2025 PT/IN R Protime 27.5 Not Available [facility] ([facility]) [address] [place], [address], 09/17/2025 13:23:29 09/17/20 25 09/17/2025 PT/IN R INR 2.3 Not Available [facility] ([facility]) [address] [place], [address], 09/17/2025 13:23:29 09/09/20 25 09/08/2025 US, echoc ardio gram, trans thora cic, compl ete, w/ color flow No observ ation record ed. [facility], [place] [address] [place], [address], 09/11/2025 09:19:21 09/15/2009/15/2025 MAMMO , scree ilya, digit al, bilat eral No observ ation record ed. [email or web address] [place], [address], 09/16/2025 16:09:54 Result Notes None recorded. Problems Name Problem SNOMED Code Status Onset Date Resolution Date Notes Provider Name and Address Organization Details Recorded Time Depressi ve disorder 53534635 Completed 202010/14/2021 Depressi on - Status is Inactive ; 10/14/20 11:08AM by Maryellen Marmolejo PA-C, Annotati on/Adden dum; Promoted ; acuity set as *; FELSIHA hamilton, [facility] 5 07:56:57 Herpes zoster 1761662 Completed 202201/02/2025 SHINGLES FELISHA hamilton, [facility] 5 07:56:03 Dysthymi a 15064281 Active 2022 DEPRESSI ON WITH ANXIETY FELISHA hamilton, [facility] 5 07:55:28 Benign essentia l hyperten jovanni 9004461 Active 2022 FELISHA hamilton, [facility] 5 07:55:28 Gastroes ophageal reflux disease 514271179 Active 2022 FELISHA hamilton [facility] 5 07:55:28 Fracture of upper end of humerus 341404447 Completed 202201/02/2025 CLOSED FRACTURE OF PROXIMAL END OF RIGHT HUMERUS, SEQUELA FELISHA hamilton, [facility] 5 07:56:[address] light mechanic al prosthet ic mitral valve replacem ent 971124296 Active 2022 FELISHA hamilton [facility] 5 07:56:22 Atrial fibrilla tion 09320901 Active 2022 FELISHA hamilton, [facility] 3 14:45:05 Coronary atherosc lerosis 689353068 Active 2022 bare metal stents to circ and LAD 2011 FELISHA hamilton [facility] 3 14:46:30 Iron deficien cy anemia 87813454 Active 2022 FELISHA hamilton [facility] 5 07:55:28 Hypothyr oidism 37399929 Active 2022 FELISHA DESIR null, [facility] 3 14:45:59 Anxiety 58913449 Active 2022 FELISHA DESIR null, [facility] 3 14:46:54 Viral hepatiti s C 38267168 Active 2022 FELISHA DESIR null, [facility] 5 07:55:28 Moderate recurren t major depressi on 15393066 Active 2023 FELISHA DESIR null, [facility] 5 07:55:28 Need for personal care assistan ce 89566605247 086007 Active 2023 FELISHA DESIR null, [facility] 5 07:55:28 Frail elderly 409403398 Active 2023 FELISHA DESIR null, [facility] 5 07:55:28 Seasonal allergic rhinitis 821572708 Active 2023 FELISHA DESIR null, [facility] 5 07:55:28 Chronic pain 38945255 Active 2023 FELISHA DESIR null, [facility] 5 07:55:28 Dementia 83153710 Active 2023 FELISHA DESIR null, [facility] 5 07:55:28 Constipa tion 80364526 Active 2023 FELISHA DESIR null, [facility] 5 07:55:44 Hyperlip idemia 05435576 Active 2024 FELISHA DESIR alfonso [facility], LJosueLJosueCJosue 5 07:59:38 Occult blood detected in feces 66341435 Active 2024 FELISHA DESIR alfonso, [facility], LJosueLJosueCJosue 5 09:13:35 Mean corpuscu lar volume above referenc e range 530031688 Active 2024 FELISHA hamilton, [facility], LDemetraCJosue 5 09:14:07 Hypercal cemia 73094637 Active 2024 FELISHA hamilton [facility], [place] 5 10:07:49 Vitamin D deficien cy 24601789 Active 2024 Lyn Marmolejo MD [address] [place] [address], [address], [facility], [place] 5 12:54:55 Hyperpar athyroid ism 06602238 Active 2024 Lyn Marmolejo MD [address] [place] [address], [address], [facility], [place] 5 12:54:56 Dysuria 68797265 Active 2024 Dotty Celis [facility], LJosueLJosueCJosue 5 14:08:08 Problem Notes None recorded. Procedures Surgical History Date Name Laterality Status Provider Name and Address Organization Details Recorded Time 2024 Most Recent Mammogram completed FELISHA DESIR [facility], [place] 5 16:09:39 2024 esophagogastroduodenoscopy completed YANELIS DESIR [facility], ClariceLDaisy 5 12:23:16 2024 colonoscopy completed FELISHA DESIR [facility], [place] 5 10:20:11 2023 esophagogastroduodenoscopy completed KIARA DUCKWORTH [facility] 4 12:40:14 2023 colonoscopy completed Lyn Marmolejo MD [address] [place], [address], [facility] 5 10:19:30 cholecystectomy completed FELISHA DESIR [facility] 3 14:48:40 replacement of mitral valve complete d [facility] 3 14:49:22 section completed [facility] 3 15:14:43 Imaging Results None recorded. Procedure Notes None recorded. Medical Equipment None Reported. Allergies Allergen ID Allergen Name Allergen Category Reaction Reaction Severity Criticality Documentation Date Start Date Code Code System Note Provider Name and Address Organization Details Recorded Time 1376 morphine medicatio n Not available Not available Not available 02/07/2023 7052 RxNorm Dotty Celis [facility] 3 10:45:47 1377 diltiazem Not available Not available Not available Not available 02/07/2023 3443 RxNorm Dotty Celis [facility] 3 10:45:54 4552 Bactrim medicatio n other severe high 04/17/2023 79864 9 RxNorm do not give d/t couma din Lola Vidal [facility] 4 13:34:33 00036 diltiazem hydrochlo ride medicatio n Not available Not available Not available 05/26/202304970 1 RxNorm Comme nt: Recor ded 12/29 7:56A M by Yanelis Kitchen on, ETHICAL HACKER, 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 ; Promo talib; Trey bernal ce: *; Reaso n: Drug aller gy; ; FELISHA hamilton, [facility] 3 12:26:44 33732 morphine sulfate medicatio n Not available Not available Not available 05/26/2023 17541 RxNorm Comme nt: Recor ded 12/29 7:56A M by Yanelis Kitchen on, ETHICAL HACKER, 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 ; Promo talib; Trey bernal ce: *; Reaso n: Drug aller gy; ; FELISHA hamilton, [facility] 3 12:26:48 Medications Name Sig Start Date [...] Recorded 09/25/20 2:38PM by Felisha Desir LPN (Authorelena palomino through [...] [facility] Levothyro xine Sodium daily 06/08 completed 72376; Recorded 01/09/20 6:06PM by Shirley Quevedo (Authori [...] Updated DateTime 10/02/2025 154.94 cm 28.5 kg/m2 89341.45 g 71 /min 118/79 mm[Hg] FELISHA DESIR [facility] 10/02/2025 08:31:58 Social History Question Answer Notes LastModified by Organizat ion Details LastModified Time Tobacco Smoking Status Former Smoker FELISHA hamilton [facility] 04/17/2023 14:48:01 What Was The Date Of Your Most Recent Tobacco Screening? 05/27/2025 [email or web address] Information not available 05/27/2025 Sex: Unknown Functional Status Question Answer Note LastModified by Organizat ion Details LastModified Time Do you use any illicit or recreational drugs? No [email or web address] Information not available 04/17/2023 Do you or have you ever used any other forms of tobacco or nicotine? No [email or web address] Information not available 06/29/2023 What is your level of alcohol consumption? None [email or web address] Information not available 04/17/2023 Mental Status None recorded. Family History Relationship Description Onset Age of this Age Resolved Age Notes LastModified by Organization Details LastModified Time Unspecified Relation Coronary atherosclero sis [email or web address] Not available 06/29 15:13:48 Medical History No medical history recorded. Gynecological History Statement/Question Response Most Recent Mammogram 09/15/2025 Obstetrics History GPAL:G 0 P 0 0 0 0 Immunizations Vaccine Type Date Status Note Provider Nam e and Address Organization Details Recorded Time Influenza, MDCK, quadrivalent, PF 2 completed FELISHA hamilton [facility] 10/10/2024 08:38:58 COVID-19, mRNA, LNP-S, PF, 100 mcg/0.5mL dose or 50 mcg/0.25mL dose 1 completed FELISHA hamilton [facility] 10/10/2024 08:38:58 COVID-19, mRNA, LNP-S, PF, 100 mcg/0.5mL dose or 50 mcg/0.25mL dose 1 completed FELISHA hamliton [facility] 10/10/2024 08:38:58 COVID-19, mRNA, LNP-S, PF, 100 mcg/0.5mL dose or 50 mcg/0.25mL dose 2 completed FELISHA hamilton [facility] 10/10/2024 08:38:58 Pneumococcal conjugate PCV20, polysaccharide [id number] conjugate, adjuvant, PF 3 completed FELISHA hamilton, [facility] 10/10/2024 08:38:58 COVID-19, mRNA, LNP-S, bivalent, PF, 50 mcg/0.5 mL or 25mcg/0.25 mL dose 3 completed FELISHA DESIR null, [facility] 10/10/2024 08:38:58 pneumococcal polysaccharide PPV23 3 completed FELISHA hamilton, [facility] 04/17/2023 12:02:00 Tdap 1 completed FELISHA hamilton, [facility] 10/10/2024 08:38:58 Influenza, split virus, trivalent, PF 3 completed FELISHA hamilton, [facility] 04/17/2023 12:02:00 influenza, split (incl. purified surface antigen) 0 completed FELISHA hamilton, [facility] 04/17/2023 12:02:00 Hep A, adult 1 completed FELISHA hamilton, [facility] 10/10/2024 08:38:58 Hep A, adult 9 completed FELISHA DESIR null, [facility] 10/10/2024 08:38:58 Influenza, split virus, quadrivalent, PF 1 completed FELISHA DESIR null, [facility] 10/10/2024 08:38:58 Influenza, split virus, quadrivalent, PF 9 completed FELISHA DESIR null, [facility] 10/10/2024 08:38:58 Influenza, MDCK, trivalent, PF 4 completed FELISHA hamilton, [facility] 10/10/2024 08:38:58 Influenza, MDCK, quadrivalent, preservative 3 completed FELISHA DESIR null, [facility] 10/10/2024 08:38:58 pneumococcal polysaccharide PPV23 8 completed Lola hamilton, [facility] 07/02/2024 08:41:52 Influenza, split virus, quadrivalent, PF 8 completed Lola hamilton, [facility] 07/02/2024 08:41:52 zoster recombinant 3 completed Lola hamilton, [facility] 07/02/2024 14:52:40 COVID-19, mRNA, LNP-S, PF, 50 mcg/0.5 mL 4 completed FELISHA hamilton, [facility] 10/10/2024 08:38:58 Influenza, MDCK, trivalent, preservative 4 completed FELISHA hamilton, [facility] 10/10/2024 08:38:58 Influenza, high-dose, trivalent, PF 5 completed Not Available [facility] 10/13/2025 09:55:50 Past Encounters Encounter ID Performer Location Encounter Start Date Encounter Closed Date Diagnosis/Indication Diagnosis SNOMED-CT Code Diagnosis ICD10 Code Diagnosis IMO Codes Diagnosis Note [id number] Lyn Marmolejo MD [facility] ([facility]) [address] [place] [address] 09/02/2025 13:16:47 09/03/2025 10:16:00 History of mechanical prosthetic mitral valve replacement 747471932 Z95.2 [id number] Lyn Marmolejo MD [facility] ([facility]) [address] [place] [address] 09/09/2025 09:58:14 09/10/2025 09:52:18 Benign essential hypertension 6411314 I10 [id number] Lyn Marmolejo MD [facility] ([facility]) [address] [place] [address] 09/17/2025 13:22:57 09/18/2025 10:36:49 Atrial fibrillation 36530379 I48.91 warfarin therapyd/c naproxen d/t hx of bleeding [id number] Lyn Marmolejo MD [facility] ([facility]) [address] [place] [address] 10/02/2025 07:57:06 10/07/2025 10:51:15 Benign essential hypertension 5085832 I10 Coronary atherosclerosis 268579169 I25.119 Atrial fibrillation 4943 6004 I48.91 Hyperlipidemia 02294980 E78.00 Hypothyroidism 21102013 E03.9 Hyperparathyroidism 6699 9008 E21.3 08875 Health Concerns Section Related Observation LastModified by Organization Detai ls LastModified Time None Recorded Concern Status LastModified by Organization Details LastModified Time None Recorded Payers Encounter Date Sequence Insurance Name Policy Number Policy Hernandez Covered Member ID Hernandez Member ID Guarantor Name 10/02/2025 1 [id number]ANT[place] - PPO) [id number] Odilia Laila [id number] Odilia Ulloa 10/02/2025 2 [place] Odilia Laila [id number] Odilia Laila Notes Date Note Type Note [...] Patient seen today by Dr. Marmolejo at [facility] Lyn Marmolejo MD [address] [place], [address], [facility], [place] 10/06/2025 13:19:04 OBGyn Episode No OBEpisode recorded.
--- OUTSIDE RECORDS SUMMARY | 2025-10-14 20:06 | XMS_ITS | Encounter Summary ---
Author Organization [facility] Address [address] [place] [address] Care Team Providers Care Nurse Case Management Name Role Phone Rico Muñiz MD, Sharan Jaime Primary Care Provider Encounter Details Date Type Department Care Team (Late st Contact Info) Description 07/02/2001 Outpatient Historical [facility] Serge Arrington MD [address] [place] [address] Encounter for long-term (current) use of other medications (Primary Dx); Unspecified essential hypertension Social History Tobacco Use Types Packs/Day Years Used Date Smoking Tobacco: Never Assessed Comments Unknown Sex and Gender Information Value Date Recorded Sex Assigned at Not on file 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
--- OUTSIDE RECORDS SUMMARY | 2025-10-14 20:06 | XMS_ITS | Encounter Summary ---
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
--- OUTSIDE RECORDS SUMMARY | 2025-10-14 20:06 | XMS_ITS | Encounter Summary ---
Author Organization [facility] Address [address] [facility] Attn: [place] [address] Care Team Providers Care Inside Steward/Stewardess Name Role Phone Rico Muñiz MD, Sharan Jaime Primary Care Provider Encounter Details Date Type Department Care Team (Late st Contact Info) Description 08/05/2001 Outpatient Historical Sharan Gómez Jr., MD [address] [place] [address] Social History Tobacco Use Types Packs/Day Years Used Date Smoking Tobacco: Never Assessed Comments Unknown Sex and Gender Information Value Date Recorded Sex Assigned at Not on file Legal Sex Female 5:42 AM BARIST[place] Gender Identity Not on file Sexual Orientation Not on file documented as of this encounter Plan of Treatment Not on file documented as of this encounter Visit Diagnoses Not on filedocumented in this encounter Care Teams Inside Steward/Stewardess Relationship Specialty Start Date End Date Sharan Gómez Jr., MD [address] [place] [address] PCP - General 08/10/05 documented as of this encounter
--- OUTSIDE RECORDS SUMMARY | 2025-10-14 20:06 | XMS_ITS | Encounter Summary ---
Author Organization [facility] Address [address] [place] [address] Care Team Providers Care Business Machine Mechanic Name Role Phone Rico Muñiz MD, Sharan Jaime Primary Care Provider Encounter Details Date Type Department Care Team (Latest Contact Info) Description 07/02/2001 Outpatient Historical [facility] [address] [place] [id number] Social History Tobacco Use Types Packs/Day Years Used Date Smoking Tobacco: Never Assessed Comments Unknown Sex and Gender Information Value Date Recorded Sex Assigned at Not on file 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
--- OUTSIDE RECORDS SUMMARY | 2025-10-14 20:06 | XMS_ITS | Encounter Summary ---
Author Organization [facility] Address [address] [place] [address] Care Team Providers Care Train Gate Attendant Name Role Phone Rico Muñiz MD, Sharan Jaime Primary Care Provider Encounter Details Date Type Department Care Team (Latest Contact Info) Description 07/06/2006 Outpatient Historical [facility] [place] [address] [place] [phone] Jennifer Cash MD NO ADDRESS ON FILE Unspecified Essential Hypertension (Primary Dx); Other Chest Pain Social History Tobacco Use Types Packs/Day Years Used Date Smoking Tobacco: Never Assessed Comments Unknown Sex and Gender Information Value Date Recorded Sex Assigned at Not on file 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
--- OUTSIDE RECORDS SUMMARY | 2025-10-14 20:06 | XMS_ITS | Encounter Summary ---
Author Organization [facility] Address [address] [place] [address] Care Team Providers Care Metrology Manager Name Role Phone Rico Muñiz MD, Sharan Jaime Primary Care Provider Encounter Details Date Type Department Care Team (Latest Contact Info) Description 10/31/2001 Outpatient Historical [facility] Sharan Gómez Jr., MD [address] [place] [address] ATRIAL FIBRILLATION (CMS/HCC) (Primary Dx); [facility] ANTICOAG USE; HEART VALVE REPLAC NEC Social History Tobacco Use Types Packs/Day Years Used Date Smoking Tobacco: Never Assessed Comments Unknown Sex and Gender Information Value Date Recorded Sex Assigned at Not on file 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
--- OUTSIDE RECORDS SUMMARY | 2025-10-14 20:06 | XMS_ITS | Continuity of Care Document ---
Author Organization [facility] Luis M, LArie, [facility] ([facility]) Address [address] [place] [address] Care Team Providers Care Nursery [employer] Teacher Name Role Phone LYN MARMOLEJO Primary Care Provider [phone] Assessment Encounter Date Assessment Date Assessment LastModified by Organization Details LastModified Time 08/17/2025 08/17/2025 she has a rescheduled senior biostatistician/group leader apt in a few weeks. [email or web address] Not available 08/17/2025 14:38:16 Plan of Treatment Reminders Order Date Submit Date Provider Last Modified By Organization Details Last Modified Time Details Appointments None recorded. Lab protein electroph oresis panel, serum or plasma 2024 [employer] [facility], [address] [place] [address], [facility] [address] [place], [address], 00:38:16 vitamin B12, serum 2024 025 [employer] [facility], [address] [place], [address], 00:38:18 mma (methylma lonic acid), serum 2024 025 [employer] [facility], [address] [place] [address] 248, [address] [place], [address], 00:38:15 CBC 2024 025 [facility], [address], [facility] 1, [place], [address], 15:57:00 unlisted lab - periphera l blood smear review 2024 [employer] [facility], [address] [place] [address], [address], [place], [address], 15:11:08 PT/INR 2024 [facility] ([facility]), [address] [place], [address], 15:57:14 PTH (parathyr oid hormone), intact + calcium, serum or plasma 2024 [employer] [facility], [address] [place] [address], [address], [place], [address], 00:38:16 thyrotrop in, QN, serum or plasma 2024 [facility], [address] [facility], [facility] 1, [place], [address], 16:04:05 T4, free, serum 2024 [employer] [facility], [address] [place] [address], [address], [place], [address], 00:38:17 Referral None recorded. Procedures None recorded. Surgeries None recorded. Imaging US, echocardi ogram, transthor acic, complete, w/ color flow 2024 [facility], [address] [place], [address], 09:16:34 Medication Orders lorazepam 0.5 mg tablet 2024 [facility], [address] [place] [address], [address], 14:21:51 Patient TargetsNo targets recorded. Patient Instructions Encounter Date Encounter Id Patient Instructions Last Modified By Organization Details Last Modified Time 08/17/2025 [id number] Folic Acid [email or web address] Not available 07/30 14:47:55 Reason for Referral None Reported. Results Created Date Observation Date Name Description Value Unit Range Abnormal Flag Note LastModifiedBy Organization Detail LastModifiedTime 07/23/2007/23/2025 PT/IN R Protime 47.0 Not Available [facility] ([facility]) [address] [place], [address], 07/23/2025 11:36:06 07/23/2007/23/2025 PT/IN R INR 3.9 Not Available [facility] ([facility]) [address] [place], [address], 07/23/2025 11:36:06 07/30/2007/30/2025 PT/IN R Protime 30.2 Not Available [facility] ([facility]) [address] [place], [address], 07/30/2025 11:33:15 07/30/2007/30/2025 PT/IN R INR 2.5 Not Available [facility] ([facility]) [address] [place], [address], 07/30/2025 11:33:15 08/07/2008/07/2025 PT/IN R Protime 26.3 Not Available [facility] ([facility]) [address] [place], [address], 08/07/2025 11:40:14 08/07/2008/07/2025 PT/IN R INR 2.2 Not Available [facility] ([facility]) [address] [place], [address], 08/07/2025 11:40:14 08/17/20 25 08/17/2025 CBC WBC 6.3 x10 4.0-10 .5 Not Available [facility] [address] [facility] 1, [place], [address], 08/17/2025 15:57:00 08/17/20 25 08/17/2025 CBC RBC 3.45 x10 3.50-5 .50 low Not Available [facility] [address] [facility] 1, [place], [address], 08/17/2025 15:57:00 08/17/20 25 08/17/2025 CBC HGB 12.4 g/dL 12.0-1 6.0 Not Available [facility] [address] [facility] 1, [place], [address], 08/17/2025 15:57:00 08/17/20 25 08/17/2025 CBC HCT 37.7 % 37.0-4 7.0 Not Available [facility] [address] [facility] 1, [place], [address], 08/17/2025 15:57:00 08/17/20 25 08/17/2025 CBC MCV 109.2 fL 80.0-9 9.9 high Not Available [facility] [address] [facility] 1, [place], [address], 08/17/2025 15:57:00 08/17/20 25 08/17/2025 CBC MCH 36.0 pg 27.0-3 2.0 high Not Available [facility] [address] [facility] 1, [place], [address], 08/17/2025 15:57:00 08/17/20 25 08/17/2025 CBC MCHC 32.9 g/dL 32.0-3 6.0 Not Available [facility] [address] [facility] 1, [place], [address], 08/17/2025 15:57:00 08/17/20 25 08/17/2025 CBC RDW 12.7 % 11.5-1 4.5 Not Available [facility] [address] [facility] 1, [place], [address], 08/17/2025 15:57:00 08/17/20 25 08/17/2025 CBC plt 239.0 x10 140.0- 451.0 Not Available [facility] [address] [facility] 1, [place], [address], 08/17/2025 15:57:00 08/17/20 25 08/17/2025 CBC lymphocytes % 27.7 % 20.0-5 0.0 Not Available [facility] [address] [facility] 1, [place], [address], 08/17/2025 15:57:00 08/17/20 25 08/17/2025 CBC granulcytes % 56.9 % 30.0-7 0.0 Not Available [facility] [address] [facility] 1, [place], [address], 08/17/2025 15:57:00 08/17/20 25 08/17/2025 CBC monocytes % 10.1 % 2.0-16 .0 Not Available [facility] [address] [facility] 1, [place], [address], 08/17/2025 15:57:00 08/17/2008/17/2025 CBC granulcytes# 3.6 x10 Not Cyndi ilable [facility] [address] [address], [place], [address], 08/17/2025 15:57:00 10/20/08/17/2025 CBC lymphocytes # 1.8 x10 Not Available [facility] [address] [facility] 1, [place], [address], 08/17/2025 15:57:00 08/17/20 25 08/17/2025 CBC monocytes # 0.6 x10 Not Avai lable [facility] [address] [facility] 1, [place], [address], 08/17/2025 15:57:00 08/17/20 25 08/17/2025 TSH TSH 0.81 uIU/m L 0.49-3 .82 Not Available [facility] [address] [facility] 1, [place], [address], 08/17/2025 16:04:05 08/17/20 25 08/18/2025 PERIP HERAL BLOOD SMEAR REVIE W peripheral blood smear review Macro cytos is 1 + Ovalo cytes 1 + Polyc hroma mikhail 1 + Revie w of the perip heral smear revea ls adequ ate numbe rs of plate lets. Revie w of perip heral smear confi jace autom ated resul ts. Not Available [facility] [address] [place], [address], 08/18/2025 15:11:08 08/17/20 25 08/19/2025 METHY LMALO [...] : 63-24 1 nmol/ L Not Available [employer] [facility] [address] [place], [address], 08/20/2025 00:38:15 08/17/2008/19/2025 METHY LMALO SE ACID [...] for clini luisito purpo ses. Not Available [employer] [facility] [address] [place], [address], 08/20/2025 00:38:15 08/17/2008/19/2025 PROTE IN, TOTAL AND PROTE IN ELECT ROPHO RESIS W/ REFL [place] protein, total 7.1 g/dL 6.1-8. 1 normal Not Available [address], [address], 08/20/2025 00:38:16 08/17/20 25 08/19/2025 PROTE IN, TOTAL AND PROTE IN ELECT ROPHO RESIS W/ REFL [place] albumin 4.5 g/dL 3.8-4. 8 normal Not Available [address], [address], 08/20/2025 00:38:16 08/17/20 25 08/19/2025 PROTE IN, TOTAL AND PROTE IN ELECT ROPHO RESIS W/ REFL [place] alpha 1 globulin 0.3 g/dL 0.2-0. 3 normal Not Available [address], [address], 08/20/2025 00:38:16 08/17/20 25 08/19/2025 PROTE IN, TOTAL AND PROTE IN ELECT ROPHO RESIS W/ REFL [place] alpha 2 globulin 0.5 g/dL 0.5-0. 9 normal Not Available [address], [address], 08/20/2025 00:38:16 08/17/20 25 08/19/2025 PROTE IN, TOTAL AND PROTE IN ELECT ROPHO RESIS W/ REFL [place] beta 1 globulin 0.4 g/dL 0.4-0. 6 normal Not Available [address], [address], 08/20/2025 00:38:16 08/17/20 25 08/19/2025 PROTE IN, TOTAL AND PROTE IN ELECT ROPHO RESIS W/ REFL [place] beta 2 globulin 0.3 g/dL 0.2-0. 5 normal Not Available [facility] [address], [address], 08/20/2025 00:38:16 08/17/20 25 08/19/2025 PROTE IN, TOTAL AND PROTE IN ELECT ROPHO RESIS W/ REFL [place] gamma globulin 1.1 g/dL 0.8-1. 7 normal Not Available [address] [place], [address], 08/20/2025 00:38:16 08/17/20 25 08/19/2025 PROTE IN, TOTAL AND PROTE IN ELECT ROPHO RESIS W/ REFL [place] interpretati on No restr icted band (M-sp mera) seen. Not Available [address] [place], [address], 08/20/2025 00:38:16 08/17/2008/19/2025 PTH, INTAC T (ICMA [...] or Low Joie l High Not Available [address] [address] [place], [address], 08/20/2025 00:38:16 08/17/2008/19/2025 PTH, INTAC T (ICMA ) AND IONIZ ED CALCI UM calcium 10.2 mg/dL 8.6-10 .4 normal Not Available [address] [place], [address], 08/20/2025 00:38:16 08/17/20 25 08/19/2025 PTH, INTAC T (ICMA ) AND IONIZ ED CALCI UM calcium, ionized 5.6 mg/dL 4.7-5. 5 high Not Available [address] [address] [place], [address], 08/20/2025 00:38:16 08/17/20 25 08/19/2025 T4, FREE T4, free 1.9 NG/dL 0.8-1. 8 high Not Available [address], [address], 08/20/2025 00:38:17 08/17/20 25 08/19/2025 VITAM IN B12 vitamin B12 >2000 pg/mL 200-11 00 high Not Available [facility] [address], [address], 08/20/2025 00:38:18 08/17/20 25 08/17/2025 PT/IN R Protime 21.5 Not Available [facility] ([facility]) [address] [place], [address], 08/17/2025 14:33:48 08/17/20 25 08/17/2025 PT/IN R INR 1.8 Not Available [facility] ([facility]) [address] [place], [address], 08/17/2025 14:33:48 08/05/20 25 08/04/2025 XR, cervi luisito spine , 2 or 3 view No observ ation record ed. [facility] [address] [place], [address], 08/07/2025 13:25:55 08/05/20 25 08/04/2025 XR, shoul vito, 2 or more view No observ ation record ed. [facility] [address] [place], [address], 08/07/2025 13:25:55 1109/08/2025 US, echoc ardio gram, trans thora cic, compl ete, w/ color flow No observ ation record ed. [facility] [address] [place], [address], 09/11/2025 09:19:21 09/15/2009/15/2025 MAMMO , scree ilya, digit al, bilat eral No observ ation record ed. jordy [facility] [address] [place], [address], 09/16/2025 16:09:54 Result Notes None recorded. Problems Name Problem SNOMED Code Status Onset Date Resolution Date Notes Provider Name and Address Organization Details Recorded Time Depressi ve disorder 52862933 Completed 202010/14/2021 Depressi on - Status is Inactive ; 10/14/20 11:08AM by Maryellen Marmolejo PA-C, Annotati on/Adden dum; Promoted ; acuity set as *; FELISHA hamilton, [facility] 5 07:56:57 Herpes zoster 7893247 Completed 202201/02/2025 SHINGLES FELISHA hamilton, [facility] 5 07:56:03 Dysthymi a 86080608 Active 2022 DEPRESSI ON WITH ANXIETY FELISHA hamilton, [facility] 5 07:55:28 Benign essentia l hyperten jovanni 6714237 Active 2022 FELISHA hamilton [facility] 5 07:55:28 Gastroes ophageal reflux disease 775320573 Active 2022 FELISHA hamilton [facility] 5 07:55:28 Fracture of upper end of humerus 638764604 Completed 202201/02/2025 CLOSED FRACTURE OF PROXIMAL END OF RIGHT HUMERUS, SEQUELA FELISHA DESIR null, [facility] 5 07:56:03 History of crown assembly machine set up mechanic al prosthet ic mitral valve replacem ent 989968377 Active 2022 FELISHA DESIR null, [facility] 5 07:56:22 Atrial fibrilla tion 15517134 Active 2022 FELISHA DESIR null, [facility] 3 14:45:05 Coronary atherosc lerosis 587437324 Active 2022 bare metal stents to circ and LAD 2011 FELISHA DESIR null, [facility] 3 14:46:30 Iron deficien cy anemia 94414035 Active 2022 FELISHA hamilton, [facility] 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 3 14:45:59 Anxiety 69155157 Active 2022 FELISHA hamilton, [facility] 3 14:46:54 Viral hepatiti s C 27586785 Active 2022 FELISHA DESIR null, [facility] 5 07:55:28 Moderate recurren t major depressi on 62121549 Active 2023 FELISHA hamilton, [facility] 5 07:55:28 Need for personal care assistan ce [id number] 984461 Active 2023 FELISHA hamilton, [facility] 5 07:55:28 Frail elderly 229011544 Active 2023 FELISHA DESIR null, [facility] 5 07:55:28 Seasonal allergic rhinitis 679595612 Active 2023 FELISHA DESIR null, [facility] 5 07:55:28 Chronic pain 88373674 Active 2023 FELISHA DESIR null, [facility] 5 07:55:28 Dementia 85782044 Active 2023 FELISHA DESIR null, [facility] 5 07:55:28 Constipa tion 61274776 Active 2023 FELISHAJAMIE DESIR null, [facility] 5 07:55:44 Hyperlip idemia 99663438 Active 2024 FELISHA DESIR null, [facility] 5 07:59:38 Occult blood detected in feces 55457304 Active 2024 FELISHA DESIR null, [facility] 5 09:13:35 Mean corpuscu lar volume above referenc e range 889116331 Active 2024 FELISHA DESIR null, [facility] 5 09:14:07 Hypercal cemia 54361829 Active 2024 FELISHA DESIR null, [facility] 5 10:07:49 Vitamin D deficien cy 38015360 Active 2024 Lyn Marmolejo MD [address] [place] [address], [address], [facility] 5 12:54:55 Hyperpar athyroid ism 34955845 Active 2024 Lyn Marmolejo MD [address] [place], [address], [facility] 5 12:54:56 Dysuria 70699501 Active 2024 Dotty Celis null, [facility] 5 14:08:08 Problem Notes None recorded. Procedures Surgical History Date Name Laterality Status Provider Name and Address Organization Details Recorded Time 2024 Most Recent Mammogram completed FELISHA [facility] 5 16:09:39 2024 esophagogastroduodenoscopy completed YANELIS ANITHA [facility] 5 12:23:16 2024 colonoscopy completed [facility] 5 10:20:11 2023 esophagogastroduodenoscopy completed KIARA DUCKWORTH [facility] 4 12:40:14 2023 colonoscopy completed Lyn Marmolejo MD [address] [place], [address], [facility] 5 10:19:30 cholecystectomy completed FELISHA [facility] 3 14:48:40 replacement of mitral valve complete d FELISHA [facility] 3 14:49:22 section completed [facility] 3 15:14:43 Imaging Results None recorded. Procedure Notes None recorded. Medical Equipment None Reported. Allergies Allergen ID Allergen Name Allergen Category Reaction Reaction Severity Criticality Documentation Date Start Date Code Code System Note Provider Name and Address Organization Details Recorded Time 1376 morphine medicatio n Not available Not available Not available 02/07/2023 7052 RxNorm Dotty Celis [facility] 3 10:45:47 1377 diltiazem Not available Not available Not available Not available 02/07/2023 3443 RxNorm Dottylizzie Celis [facility] 3 10:45:54 4552 Bactrim medicatio n other severe high 04/17/2023 29258 9 RxNorm do not give d/t couma din Lola Vidal [facility] 4 13:34:33 55445 diltiazem hydrochlo ride medicatio n Not available Not available Not available 05/26/2023 1 RxNorm Comme nt: Recor ded 12/29 7:56A M by Yanelis Kitchen on, FIELD SUPPORT TECHNICIAN, 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 ; Promo talib; Signi fican ce: *; Reaso n: Drug aller gy; ; FELISHA DESIR [facility] 3 12:26:44 79509 morphine sulfate medicatio n Not available Not available Not available 05/26/2023 08937 RxNorm Comme nt: Recor ded 12/29 7:56A M by Yanelis Kitchen on, FIELD SUPPORT TECHNICIAN, 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 ; Promo talib; Signi fican ce: *; Reaso n: Drug aller gy; ; FELISHA DESIR [facility] 3 12:26:48 Medications Name Sig Start [...] THSC Levothyro xine Sodium daily 06/08 completed 68256; Recorded 01/09/20 6:06PM by Shriley Quevedo (Authori zed through Travis Sousa MD), [...] Updated DateTime 5 154.94 cm 28.9 kg/m2 38181.6 3 g 97.6 [degF] 76 /min 95 % 138/84 mm[Hg] Dotty Celis [facility] 5 13:43:55 Social History Question Answer Notes LastModified by Humouno Details LastModified Time Tobacco Smoking Status Former Smoker FELISHA hamilton, [facility] 04/17/2023 14:48:01 What Was The Date Of Your Most Recent Tobacco Screening? 05/27/2025 [email or web address] Information not available 05/27/2025 Sex: Unknown Functional Status Question Answer Note LastModified by Humouno Details LastModified Time Do you use any illicit or recreational drugs? No [email or web address] Information not available 04/17/2023 Do you or have you ever used any other forms of tobacco or nicotine? No [email or web address] Information not available 06/29/2023 What is your level of alcohol consumption? None [email or web address] Information not available 04/17/2023 Mental Status None recorded. Family History Relationship Description Onset Age of this Age Resolved Age Notes LastModified by Organization Details LastModified Time Unspecified Relation Coronary atherosclero sis [email or web address] Not available 06/29 15:13:48 Medical History No medical history recorded. Gynecological History Statement/Question Response Most Recent Mammogram 09/15/2025 Obstetrics History GPAL:G 0 P 0 0 0 0 Immunizations Vaccine Type Date Status Note Provider Nam e and Address Organization Details Recorded Time Influenza, MDCK, quadrivalent, PF 2 completed FELISHA hamilton, [facility] 10/10/2024 08:38:58 COVID-19, mRNA, LNP-S, PF, 100 mcg/0.5mL dose or 50 mcg/0.25mL dose 1 completed FELISHA DESIR null, [facility] 10/10/2024 08:38:58 COVID-19, mRNA, LNP-S, PF, 100 mcg/0.5mL dose or 50 mcg/0.25mL dose 1 completed FELISHA DESIR null, [facility] 10/10/2024 08:38:58 COVID-19, mRNA, LNP-S, PF, 100 mcg/0.5mL dose or 50 mcg/0.25mL dose 2 completed FELISHA hamilton, [facility] 10/10/2024 08:38:58 Pneumococcal conjugate PCV20, polysaccharide KVC086 conjugate, adjuvant, PF 3 completed FELISHA hamilton, [facility] 10/10/2024 08:38:58 COVID-19, mRNA, LNP-S, bivalent, PF, 50 mcg/0.5 mL or 25mcg/0.25 mL dose 3 completed FELISHA hamilton, [facility] 10/10/2024 08:38:58 pneumococcal polysaccharide PPV23 3 completed FELISHA DESIR null, [facility] 04/17/2023 12:02:00 Tdap 1 completed FELISHA hamilton, [facility] 10/10/2024 08:38:58 Influenza, split virus, trivalent, PF 3 completed FELISHA hamilton, [facility] 04/17/2023 12:02:00 influenza, split (incl. purified surface antigen) 0 completed FELISHA hamilton, [facility] 04/17/2023 12:02:00 Hep A, adult 1 completed FELISHA DESIR null, [facility] 10/10/2024 08:38:58 Hep A, adult 9 completed FELISHA DESIR null, [facility] 10/10/2024 08:38:58 Influenza, split virus, quadrivalent, PF 1 completed FELISHA DESIR null, [facility] 10/10/2024 08:38:58 Influenza, split virus, quadrivalent, PF 9 [facility] 10/10/2024 08:38:58 Influenza, MDCK, trivalent, PF 4 completed FELISHA DESIR null, [facility] 10/10/2024 08:38:58 Influenza, MDCK, quadrivalent, preservative 3 completed FELISHA hamilton, [facility] 10/10/2024 08:38:58 pneumococcal polysaccharide PPV23 8 completed Lola hamilton, [facility] 07/02/2024 08:41:52 Influenza, split virus, quadrivalent, PF 8 completed Lola Vidal null, [facility] 07/02/2024 08:41:52 zoster recombinant 3 completed Lola hamilton, [facility] 07/02/2024 14:52:40 COVID-19, mRNA, LNP-S, PF, 50 mcg/0.5 mL 4 completed FELISHA hamilton, [facility] 10/10/2024 08:38:58 Influenza, MDCK, trivalent, preservative 4 completed FELISHA DESIR [facility] 10/10/2024 08:38:58 Influenza, high-dose, trivalent, PF 5 completed Not Available [facility] 10/13/2025 09:55:50 Past Encounters Encounter ID Performer Location Encounter Start Date Encounter Closed Date Diagnosis/Indication Diagnosis SNOMED-CT Code Diagnosis ICD10 Code Diagnosis IMO Codes Diagnosis Note [id number] Lyn Marmolejo MD [facility] ([facility]) [address] [place], [place] [phone] 07/23/2025 11:35:38 07/24/2025 12:08:17 Atrial fibrillation 78145328 I48.91 warfarin therapyd/c naproxen d/t hx of bleeding [id number] Lyn Marmolejo MD [facility] ([facility]) [address] [place], [place] [address] 07/30/2025 11:32:37 07/31/2025 09:44:15 History of mechanical prosthetic mitral valve replacement 303012906 Z95.2 [id number] Lyn Marmolejo MD [facility] ([facility]) [address] [place], [place] [phone] 08/04/2025 10:06:02 08/04/2025 15:14:44 Right cervical root neuropathy 3057844852 4748956 M54.12 [id number] [facility] shoulder region 2249522062 M25.511 [id number] Lyn Marmolejo MD [facility] ([facility]) [address] [place], [place] [phone] 08/07/2025 11:39:45 08/10/2025 10:28:08 Atrial fibrillation 44022488 I48.91 warfarin therapyd/c naproxen d/t hx of bleeding [id number] Lyn Marmolejo MD [facility] ([facility]) [address] [place] [address] 08/17/2025 13:17:17 08/18/2025 09:51:22 History of mechanical prosthetic mitral valve replacement 560863651 Z95.2 Mean corpu scular volume above reference range 525583850 R71.8 725802 Hypercalcemia 25602446 E 83.52 9955 Drug therapy finding 309 802618 Z79.899 [id number] Generalize d anxiety disorder 70826789 F41.1 [id number] Health Concerns Section Related Observation LastModified by Organization Detai ls LastModified Time None Recorded Concern Status LastModified by Organization Details LastModified Time None Recorded Payers Encounter Date Sequence Insurance Name Policy Number Policy Hernandez Covered Member ID Hernandez Member ID Guarantor Name 08/17/2025 1 [place]ANT[place] - [place]PO) [id number] Odilia Ulloa [id number] Odilia Laila 08/17/2025 2 [place] Odilia Ulloa [id number] Odilia Ulloa Notes Date Note Type Note [...] and low on fuel. Lyn Marmolejo MD [address] [place] [address], [address], [facility] 08/17/2025 14:48:51 OBGyn Episode No OBEpisode recorded.
--- OUTSIDE RECORDS SUMMARY | 2025-10-14 20:06 | XMS_ITS | Encounter Summary ---
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 USE; FAMILY HX-DIABETES MELLITUS Social History Tobacco Use Types Packs/Day Years Used Date Smoking Tobacco: Never Assessed Comments Unknown Sex and Gender Information Value Date Recorded Sex Assigned at Not on file 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 Gender Identity Not on file Sexual Orientation Not on file documented as of this encounter Plan of Treatment Not on file documented as of this encounter Visit Diagnoses Diagnosis Unspecified essential hypertension- Primary Endocarditis, valve unspecified, unspecified cause 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
--- OUTSIDE RECORDS SUMMARY | 2025-10-14 20:07 | XMS_ITS | Encounter Summary ---
Author Organization [facility] Address [address] [place] [address] Care Team Providers Care Corporate Security Manager Name Role Phone Rico Muñiz MD, Sharan Jaime Primary Care Provider Encounter Details Date Type Department Care Team (Latest Contact Info) Description 08/03/2000 Outpatient Historical [facility] Sharan Gómez Jr., MD [address] [place] [address] Pure hypercholesterolem (Primary Dx); Other and unspecified hyperlipidemia; Dietary surveil/adult school counselor Social History Tobacco Use Types Packs/Day Years Used Date Smoking Tobacco: Never Assessed Comments Unknown Sex and Gender Information Value Date Recorded Sex Assigned at Not on file 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
--- OUTSIDE RECORDS SUMMARY | 2025-10-14 20:07 | XMS_ITS | Encounter Summary ---
Author Organization [facility] Address [address] [place] [address] Care Team Providers Care Market Research Manager Name Role Phone Rico Muñiz MD, Sharan Jaime Primary Care Provider Encounter Details Date Type Department Care Team (Latest Contact Info) Description 10/01/2000 Outpatient Historical [facility] Sharan Gómez Jr., MD [address] [place] [address] Endocarditis, valve unspecified, unspecified cause (Primary Dx); Other and unspecified hyperlipidemia; Osteoarthrosis, unspecified whether generalized or localized, unspecified site Social History Tobacco Use Types Packs/Day Years Used Date Smoking Tobacco: Never Assessed Comments Unknown Sex and Gender Information Value Date Recorded Sex Assigned at Not on file Legal Sex Female 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
--- OUTSIDE RECORDS SUMMARY | 2025-10-14 20:07 | XMS_ITS | Encounter Summary ---
Author Organization [facility] Address [address] [place] [address] Care Team Providers Care Progressive Die Maker Name Role Phone Rico Muñiz MD, Sharan Jaime Primary Care Provider Encounter Details Date Type Department Care Team (Latest Contact Info) Description 06/18/1998 Outpatient Historical [facility] Int Luis AFaisal Lopez [address] [place] [phone] Serge Arrington MD [address] [place] [address] Mitral valve disorder (Primary Dx); Unspecified essential hypertension; Hematuria; Routine medical exam Social History Tobacco Use Types Packs/Day Years Used Date Smoking Tobacco: Never Assessed Comments Unknown Sex and Gender Information Value Date Recorded Sex Assigned at Not on file Legal 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
--- OUTSIDE RECORDS SUMMARY | 2025-10-14 20:07 | XMS_ITS | Encounter Summary ---
Author Organization [facility] Address [address] [place] [address] Care Team Providers Care Segment Assembler Name Role Phone Rico Muñiz MD, Sharan Jaime Primary Care Provider Encounter Details Date Type Department Care Team (Late st Contact Info) Description 06/21/2000 Outpatient Historical [facility] Serge Arrington MD [address] [place] [address] Unspecified essential hypertension (Primary Dx); Mitral valve disorder; termination clerk (current) use of anticoagulants Social History Tobacco Use Types Packs/Day Years Used Date Smoking Tobacco: Never Assessed Comments Unknown Sex and Gender Information Value Date Recorded Sex Assigned at Not on file Legal Sex Female 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
--- OUTSIDE RECORDS SUMMARY | 2025-10-14 20:07 | XMS_ITS | Encounter Summary ---
Author Organization [facility] Address [address] [facility] Attn: [place] [address] Care Team Providers Care Carbon Paper Machine Operator Name Role Phone Rico Muñiz MD, Sharan Jaiem Primary Care Provider Encounter Details Date Type Department Care Team (Late st Contact Info) Description 08/16/2000 Outpatient Historical Sharan Gómez Jr., MD [address] [place] [address] Social History Tobacco Use Types Packs/Day Years Used Date Smoking Tobacco: Never Assessed Comments Unknown Sex and Gender Information Value Date Recorded Sex Assigned at Not on file Legal Sex Female 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
--- OUTSIDE RECORDS SUMMARY | 2025-10-14 20:07 | XMS_ITS | Encounter Summary ---
Author Organization [facility] Address [address] [place] [address] Care Team Providers Care Packaging Machine Operator Name Role Phone Rico Muñiz MD, Sharan Jaime Primary Care Provider Encounter Details Date Type Department Care Team (Latest Contact Info) Description 09/12/2000 Outpatient Historical [facility] Sharan Gómez Jr., MD [address] [place] [address] Other and unspecified hyperlipidemia (Primary Dx); Other nonspecific finding on examination of urine; Personal history of other disorder of urinary system; jail (current) use of anticoagulants Social History Tobacco Use Types Packs/Day Years Used Date Smoking Tobacco: Never Assessed Comments Unknown Sex and Gender Information Value Date Recorded Sex Assigned at Not on file Legal Sex Female 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 Gender Identity Not on file Sexual Orientation Not on file documented as of this encounter Plan of Treatment Not on file documented as of this encounter Visit Diagnoses Diagnosis Other and unspecified hyperlipidemia- Primary Other nonspecific finding on examination of urine Personal history of other disorder of urinary system 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
--- OUTSIDE RECORDS SUMMARY | 2025-10-14 20:07 | XMS_ITS | Encounter Summary ---
Author Organization [facility] Address [address] [place] [address] Care Team Providers Care Rim Fire Priming Operator Name Role Phone Rico Muñiz MD, Sharan Jaime Primary Care Provider Encounter Details Date Type Department Care Team (Latest Contact Info) Description 11/09/2000 Outpatient Historical [facility] Sharan Gómez Jr., MD [address] [place] [address] Unspecified essential hypertension (Primary Dx); Pure hypercholesterolem; Endocarditis, valve unspecified, unspecified cause; long term (current) use of anticoagulants Social History Tobacco Use Types Packs/Day Years Used Date Smoking Tobacco: Never Assessed Comments Unknown Sex and Gender Information Value Date Recorded Sex Assigned at Not on file Legal Sex Female 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 Gender Identity Not on file Sexual Orientation Not on file documented as of this encounter Plan of Treatment Not on file documented as of this encounter Visit Diagnoses Diagnosis Unspecified essential hypertension- Primary Pure hypercholesterolem Pure hypercholesterolemia Endocarditis, valve unspecified, unspecified cause long term (current) use of anticoagulants Long-term (current) use of anticoagulants documented in this encounter Care Teams Rim Fire Priming Operator Relationship Specialty Start Date End Date Sharan Gómez Jr., MD [address] [place] [address] PCP - General 08/10/05 documented as of this encounter
--- OUTSIDE RECORDS SUMMARY | 2025-10-14 20:07 | XMS_ITS | Encounter Summary ---
Author Organization [facility] Address [address] [place] [address] Care Team Providers Care Tower Equipment Installer Name Role Phone Rico Muñiz MD, Sharan Jaime Primary Care Provider Encounter Details Date Type Department Care Team (Latest Contact Info) Description 08/16/2000 Outpatient Historical [facility] Sharan Gómez Jr., MD [address] [place] [address] Pure hypercholesterolem (Primary Dx); Unspecified essential hypertension; Encounter for long-term (current) use of other medications Social History Tobacco Use Types Packs/Day Years Used Date Smoking Tobacco: Never Assessed Comments Unknown Sex and Gender Information Value Date Recorded Sex Assigned at Not on file Legal 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
--- OUTSIDE RECORDS SUMMARY | 2025-10-14 20:07 | XMS_ITS | Encounter Summary ---
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
--- OUTSIDE RECORDS SUMMARY | 2025-10-14 20:07 | XMS_ITS | Encounter Summary ---
Author Organization [facility] Address [address] [place] [address] Care Team Providers Care Residential Energy Auditor Name Role Phone Rico Muñiz MD, Sharan Jaime Primary Care Provider Encounter Details Date Type Department Care Team (Latest Contact Info) Description 12/21/2000 Outpatient Historical [facility] Sharan Gómez Jr., MD [address] [place] [address] Pure hypercholesterolem (Primary Dx); Other and unspecified hyperlipidemia; Esophageal reflux; jail (current) use of anticoagulants Social History Tobacco Use Types Packs/Day Years Used Date Smoking Tobacco: Never Assessed Comments Unknown Sex and Gender Information Value Date Recorded Sex Assigned at Not on file Legal Sex Female 5:42 AM 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 Gender Identity Not on file Sexual Orientation Not on file documented as of this encounter Plan of Treatment Not on file documented as of this encounter Visit Diagnoses Diagnosis Pure hypercholesterolem- Primary Pure hypercholesterolemia Other and unspecified hyperlipidemia Esophageal reflux book retailer (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
--- OUTSIDE RECORDS SUMMARY | 2025-10-14 20:07 | XMS_ITS | Encounter Summary ---
Author Organization [facility] Address [address] [facility] Attn: [place] [address] Care Team Providers Care Graining Machine Operator Name Role Phone Rico Muñiz MD, Sharan Jaime Primary Care Provider Encounter Details Date Type Department Care Team (Late st Contact Info) Description 11/09/2000 Outpatient Historical Sharan Gómez Jr., MD [address] [place] [address] Social History Tobacco Use Types Packs/Day Years Used Date Smoking Tobacco: Never Assessed Comments Unknown Sex and Gender Information Value Date Recorded Sex Assigned at Not on file Legal Sex Female 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
--- OUTSIDE RECORDS SUMMARY | 2025-10-14 20:07 | XMS_ITS | Encounter Summary ---
Author Organization [facility] Address [address] [place] [address] Care Team Providers Care Broth Mixer Name Role Phone Rico Muñiz MD, Sharan Jaime Primary Care Provider Encounter Details Date Type Department Care Team (Latest Contact Info) Description 06/28/2000 Outpatient Historical [facility] Sharan Gómez Jr., MD [address] [place] [address] Pure hypercholesterolem (Primary Dx); Hypopotassemia; Heart valve replaced by other means Social History Tobacco Use Types Packs/Day Years Used Date Smoking Tobacco: Never Assessed Comments Unknown Sex and Gender Information Value Date Recorded Sex Assigned at Not on file Legal Sex Female 5: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
--- OUTSIDE RECORDS SUMMARY | 2025-10-14 20:07 | XMS_ITS | Continuity of Care Document ---
Author Organization DAI Haas [facility], [place], [facility] ([facility]) Address [address] [place] [address] Care Team Providers Care Dairy Bar Manager Name Role Phone LYN MARMOLEJO Primary Care Provider Assessment No assessment recorded. Plan of Treatment Reminders Order Date Submit Date Provider Last Modified By Organization Details Last Modified Time Details Appointments None record ed. Lab PT/INR 025 07/16/20 25 QUENTIN [facility]), [address] [place], [address], 12:57:11 Referral None record ed. Procedures None record ed. Surgeries None record ed. Imaging None record ed. Medication Orders None record ed. Patient TargetsNo targets recorded. Patient InstructionsNo instructions recorded. Reason for Referral None Reported. Results Created Date Observation Date Name Description Value Unit Range Abnormal Flag Note LastModifiedBy Organization Detail LastModifiedTime 06/24/2006/24/2025 PT/IN R Protime 40.9 Not Available [facility]) [address] [place], [address], 06/24/2025 13:13:54 06/24/20 25 06/24/2025 PT/IN R INR 3.4 Not Available [facility] ([facility]) [address] [place], [address], 06/24/2025 13:13:54 07/02/20 25 07/02/2025 PT/IN R Protime 42.3 Not Available [facility] ([facility]) [address] [place], [address], 07/01/2025 10:25:07 07/02/20 25 07/02/2025 PT/IN R INR 3.5 Not Available [facility] ([facility]) [address] [place], [address], 07/01/2025 10:25:07 07/06/20 25 07/06/2025 PT/IN R Protime 39.5 Not Available [facility] ([facility]) [address] [place], [address], 07/06/2025 11:23:26 07/06/20 25 07/06/2025 PT/IN R INR 3.3 Not Available [facility] ([facility]) [address] [place], [address], 07/06/2025 11:23:26 07/09/20 25 07/09/2025 PT/IN R Protime 34.6 Not Available [facility] ([facility]) [address] [place], [address], 07/09/2025 13:44:17 07/09/20 25 07/09/2025 PT/IN R INR 2.9 Not Available [facility] ([facility]) [address] [place], [address], 07/09/2025 13:44:17 07/14/20 25 07/14/2025 URINA LYSIS WITH MICRO color YELLOW Not Available [facility] [address] [place] [address], [address], 07/14/2025 14:52:32 07/14/20 25 07/14/2025 URINA LYSIS WITH MICRO clarity CLEAR Not Available [facility] [address], [place], [address], 07/14/2025 14:52:32 07/14/20 25 07/14/2025 URINA LYSIS WITH MICRO glu NEGATI VE Not Available [facility] [address], [place], [address], 07/14/2025 14:52:32 07/14/2007/14/2025 URINA LYSIS WITH MICRO bili NEGATI VE Not Available [facility] [address], [place], [address], 07/14/2025 14:52:32 07/14/2007/14/2025 URINA LYSIS WITH MICRO ket NEGATI VE Not Available [facility] [address], [place], [address], 07/14/2025 14:52:32 07/14/20 25 07/14/2025 URINA LYSIS WITH MICRO S.g 1.010 1.005- 1.025 Not Available [facility] [address], [place], [address], 07/14/2025 14:52:32 07/14/20 25 07/14/2025 URINA LYSIS WITH MICRO pH 5.0 5.0-7. 0 Not Available [facility] [address], [place], [address], 07/14/2025 14:52:32 07/14/20 25 07/14/2025 URINA LYSIS WITH MICRO pro NEGATI VE Not Available [facility] [address], [place], [address], 07/14/2025 14:52:32 07/14/20 25 07/14/2025 URINA LYSIS WITH MICRO uro 0.2 E.U./D L Not Available [facility] [address], [place], [address], 07/14/2025 14:52:32 07/14/20 25 07/14/2025 URINA LYSIS WITH MICRO nit NEGATI VE Not Available [facility] [address], [place], [address], 07/14/2025 14:52:32 07/14/20 25 07/14/2025 URINA LYSIS WITH MICRO blo NEGATI VE Not Available [facility] [address], [place], [address], 07/14/2025 14:52:32 07/14/20 25 07/14/2025 URINA LYSIS WITH MICRO jose elias NEGATI VE Not Available [facility] [address], [place], [address], 07/14/2025 14:52:32 07/14/20 25 07/14/2025 URINA LYSIS WITH MICRO WBC 0-1 abnormal Not Available [facility] [address], [place], [address], 07/14/2025 14:52:32 07/14/20 25 07/14/2025 URINA LYSIS WITH MICRO RBC NEGATI VE Not Available [facility] [address], [place], [address], 07/14/2025 14:52:32 07/14/20 25 07/14/2025 URINA LYSIS WITH MICRO epi cells 1-2 abnormal Not Available [facility] [address], [place], [address], 07/14/2025 14:52:32 07/14/20 25 07/14/2025 URINA LYSIS WITH MICRO bacteria 1-2 HYALIN E CAST abnormal Not Available [facility] [address] [facility] [address], [place], [address], 07/14/2025 14:52:32 07/14/2007/14/2025 URINA LYSIS WITH MICRO other NEG Not Available [facility] [address] [facility] [address], [place], [address], 07/14/2025 14:52:32 07/14/20 25 07/16/2025 CULTU RE, URINE , ROUTI NE culture, urine, routine SEE NOTE CULTU RE, URINE , ROUTI NE Micro Numbe r: [id number] Test Statu s: Final Speci men Sourc e: Urine Speci men Quali ty: Adequ ate Resul t: No Growt h Not Available [facility] [address] [place], [address], 07/16/2025 02:51:13 07/17/2007/17/2025 PT/IN R Protime 34.4 Not Available [facility] ([facility]) [address] [place], [address], 07/16/2025 12:07:15 07/17/2007/17/2025 PT/IN R INR 2.9 Not Available [facility] ([facility]) [address] [place], [address], 07/16/2025 12:07:15 08/05/2008/04/2025 XR, cervi luisito spine , 2 or 3 view No observ ation record ed. [facility] [place], [facility] [address] [place], [address], 08/07/2025 13:25:55 08/05/20 25 08/04/2025 XR, shoul vito, 2 or more view No observ ation record ed. [facility] [place] [address] [place], [address], 08/07/2025 13:25:55 09/09/20 25 09/08/2025 US, echoc ardio gram, trans thora cic, compl ete, w/ color flow No observ ation record ed. QUENTIN [facility] [address] [place], [address], 09/11/2025 09:19:21 09/15/2009/15/2025 MAMMO , scree ilya, digit al, bilat eral No observ ation record ed. jordy [facility] [address] [place], [address], 09/16/2025 16:09:54 Result Notes None recorded. Problems Name Problem SNOMED Code Status Onset Date Resolution Date Notes Provider Name and Address Organization Details Recorded Time Depressi ve disorder 04530128 Completed 202010/14/2021 Depressi on - Status is Inactive ; 10/14/20 11:08AM by Maryellen Marmolejo PA-C, Annotati on/Adden dum; Promoted ; acuity set as *; FELISHA hamilton [facility] 5 07:56:57 Herpes zoster 2880645 Completed 202201/02/2025 SHINGLES FELISHA hamilton, [facility] 5 07:56:03 Dysthymi a 53411220 Active 2022 DEPRESSI ON WITH ANXIETY FELISHA hamilton [facility] 5 07:55:28 Benign essentia l hyperten jovanni 9736716 Active 2022 FELISHA hamilton [facility] 5 07:55:28 Gastroes ophageal reflux disease 666465210 Active 2022 FELISHA hamilton [facility] 5 07:55:28 Fracture of upper end of humerus 440640089 Completed 202201/02/2025 CLOSED FRACTURE OF PROXIMAL END OF RIGHT HUMERUS, SEQUELA FELISHA hamilotn, [facility] 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 5 07:56:22 Atrial fibrilla tion 42894461 Active 2022 FELISHA hamilton, [facility] 3 14:45:05 Coronary atherosc lerosis 352738070 Active 2022 bare metal stents to circ and LAD 2011 FELISHA hamilton, [facility] 3 14:46:30 Iron deficien cy anemia 77964865 Active 2022 FELISHA hamilton, [facility] 5 07:55:28 Hypothyr oidism 02609136 Active 2022 FELISHA hamilton, [facility] 14:45:59 Anxiety 81110963 Active 2022 [facility] 14:46:54 Viral hepatiti s C 77749498 Active 2022 FELISHA hamilton, [facility] 5 07:55:28 Moderate recurren t major depressi on 92778966 Active 2023 FELISHA hamilton, [facility] 5 07:55:28 Need for personal care assistan ce 78509494944 226966 Active 2023 FELISHA hamilton [facility] 5 07:55:28 Frail elderly 828230761 Active 2023 FELISHA DESIR null, [facility] 5 07:55:28 Seasonal allergic rhinitis 802470230 Active 2023 FELISHA DESIR null, [facility] 5 07:55:28 Chronic pain 96984284 Active 2023 FELISHA DESIR null, [facility] 5 07:55:28 Dementia 49598508 Active 2023 FELISHA DESIR null, [facility] 5 07:55:28 Constipa tion 40008636 Active 2023 FELISHA DESIR null, [facility] 5 07:55:44 Hyperlip idemia 96628554 Active 2024 FELISHA DESIR null, [facility] 5 07:59:38 Occult blood detected in feces 76158284 Active 2024 FELISHA DESIR null, [facility] 5 09:13:35 Mean corpuscu lar volume above referenc e range 275890059 Active 2024 FELISHA DESIR null, [facility] 5 09:14:07 Hypercal cemia 12368821 Active 2024 FELISHA DESIR null, [facility] 5 10:07:49 Vitamin D deficien cy 10097056 Active 2024 Lyn Marmolejo MD [address] [place] [address], [address], [facility] 5 12:54:55 Hyperpar athyroid ism 72965362 Active 2024 Lyn Marmolejo MD [address] [place], [address], [facility], [facility] 5 12:54:56 Dysuria 90229205 Active 2024 Dotty Celis null, [facility] 5 14:08:08 Problem Notes None recorded. Procedures Surgical History Date Name Laterality Status Provider Name and Address Organization Details Recorded Time 2024 Most Recent Mammogram completed FELISHA DESIR [facility] 5 16:09:39 2024 esophagogastroduodenoscopy completed YANELIS WELSH [facility] 5 12:23:16 2024 colonoscopy completed FELISHA [facility] 5 10:20:11 2023 esophagogastroduodenoscopy completed KIARA DUCKWORTH [facility] 4 12:40:14 2023 colonoscopy completed Lyn Marmolejo MD [address] [place], [address], [facility], [facility] 5 10:19:30 cholecystectomy completed FELISHA [facility] 3 14:48:40 replacement of mitral valve complete d FELISHA [facility] 3 14:49:22 [facility] 15:14:43 Imaging Results None recorded. Procedure Notes None recorded. Medical Equipment None Reported. Allergies Allergen ID Allergen Name Allergen Category Reaction Reaction Severity Criticality Documentation Date Start Date Code Code System Note Provider Name and Address Organization Details Recorded Time 1376 morphine medicatio n Not available Not available Not available 02/07/2023 7052 RxNorm Dotty Celis [facility] 3 10:45:47 1377 diltiazem Not available Not available Not available Not available 02/07/2023 3443 RxNorm Dotty Sharmaoch [facility] 3 10:45:54 4552 Bactrim medicatio n other severe high 04/17/2023 28150 9 RxNorm do not give d/t couma din Lola Marcy [facility] 4 13:34:33 09754 diltiazem hydrochlo ride medicatio n Not available Not available Not available 05/26/202315248 1 RxNorm Comme nt: Recor ded 12/29 7:56A M by Yanelis Kitchen on, 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, 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 ; Promo talib; Signi fican ce: *; Reaso n: Drug aller gy; ; [facility] 12:26:44 85545 morphine sulfate medicatio n Not available Not available Not available 05/26/2023 98460 RxNorm Comme nt: Recor ded 12/29 7:56A M by Yanelis Kitchen on, 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, 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 ; Promo talib; Signi fican ce: *; Reaso n: Drug aller gy; ; [facility] 12:26:48 Medications Name Sig [...] completed 436; Recorded 01/02/20 3:43PM by Felisha eDsir LPN (Authori pushpad through Lyn Marmolejo MD), Refill Request; Refill Quantity : 30; Tablet; Not Available Not Available Not Available fiber 06/08 completed Not Available Not Available Not Available [facility] Levothyro xine Sodium daily 06/08 completed 17916; Recorded 01/09/20 6:06PM by Shirley Quevedo (Authori [...] History Question Answer Notes LastModified by Organizat [employer] Details LastModified Time Tobacco Smoking Status Former Smoker [facility]ELISHA ham[facility] 04/17/2023 14:48:01 What Was The Date Of Your Most Recent Tobacco Screening? 05/27/2025 [email or web address] Information not available 05/27/2025 Sex: Unknown Functional Status Question Answer Note LastModified by Organ[employer]at [employer] Details LastModified Time Do you use any illicit or recreational drugs? No [email or web address] Information not available 04/17/2023 Do you or have you ever used any other forms of tobacco or nicotine? No Information not available 06/29/2023 What is your level of alcohol consumption? None Information not available 04/17/2023 Mental Status None recorded. Family History Relationship Description Onset Age of this Age Resolved Age Notes LastModified by Organization Details LastModified Time Unspecified Relation Coronary atherosclero sis [email or web address] Not available 06/29 15:13:48 Medical History No medical history recorded. Gynecological History Statement/Question Response Most Recent Mammogram 09/15/2025 Obstetrics History GPAL:G 0 P 0 0 0 0 Immunizations Vaccine Type Date Status Note Provider Nam e and Address Organization Details Recorded Time Influenza, MDCK, quadrivalent, PF 2 completed FELISHA hamilton [facility] 10/10/2024 08:38:58 COVID-19, mRNA, LNP-S, PF, 100 mcg/0.5mL dose or 50 mcg/0.25mL dose 1 completed FELISHA hamilton [facility] 10/10/2024 08:38:58 COVID-19, mRNA, LNP-S, PF, 100 mcg/0.5mL dose or 50 mcg/0.25mL dose 1 [facility] 10/10/2024 08:38:58 COVID-19, mRNA, LNP-S, PF, 100 mcg/0.5mL dose or 50 mcg/0.25mL dose 2 completed FELISHA hamilton, [facility] 10/10/2024 08:38:58 Pneumococcal conjugate PCV20, polysaccharide XAB710 conjugate, adjuvant, PF 3 [facility] 10/10/2024 08:38:58 COVID-19, mRNA, LNP-S, bivalent, PF, 50 mcg/0.5 mL or 25mcg/0.25 mL dose 3 completed FELISHA hamilton, [facility] 10/10/2024 08:38:58 pneumococcal polysaccharide PPV23 3 completed [facility] 04/17/2023 12:02:00 Tdap 1 completed FELISHA hamilton, [facility] 10/10/2024 08:38:58 Influenza, split virus, trivalent, PF 3 completed FELISHA hamilton, [facility] 04/17/2023 12:02:00 influenza, split (incl. purified surface antigen) 0 completed FELISHA DESIR [facility] 04/17/2023 12:02:00 Hep A, adult 1 completed FELISHA hamilton [facility] 10/10/2024 08:38:58 Hep A, adult 9 completed FELISHA DESIR null, [facility] 10/10/2024 08:38:58 Influenza, split virus, quadrivalent, PF 1 completed FELISHA DESIR null, [facility] 10/10/2024 08:38:58 Influenza, split virus, quadrivalent, PF 9 completed FELISHA DESIR null, [facility] 10/10/2024 08:38:58 Influenza, MDCK, trivalent, PF 4 completed FELISHA DESIR null, [facility] 10/10/2024 08:38:58 Influenza, MDCK, quadrivalent, preservative 3 completed FELISHA DESIR null, [facility] 10/10/2024 08:38:58 pneumococcal polysaccharide PPV23 8 completed Lola Vidal null, [facility] 07/02/2024 08:41:52 Influenza, split virus, quadrivalent, PF 8 completed Lola Vidal null, [facility] 07/02/2024 08:41:52 zoster recombinant 3 completed Lola Vidal null, [facility] 07/02/2024 14:52:40 COVID-19, mRNA, LNP-S, PF, 50 mcg/0.5 mL 4 completed FELISHA DESIR null, [facility] 10/10/2024 08:38:58 Influenza, MDCK, trivalent, preservative 4 completed FELISHA DESIR null, [facility] 10/10/2024 08:38:58 Influenza, high-dose, trivalent, PF 5 completed Not Available [facility] 10/13/2025 09:55:50 Past Encounters Encounter ID Performer Location Encounter Start Date Encounter Closed Date Diagnosis/Indication Diagnosis SNOMED-CT Code Diagnosis ICD10 Code Diagnosis IMO Codes Diagnosis Note [id number] Lyn Marmolejo MD [facility] ([facility]) [address] [place] [address] 06/24/2025 12:18:01 06/30/2025 13:41:59 Hyperparathyroidism 94837596 E21.3 64357 corrected and ionized calcium are normalgfr 52 and stable Vitamin D deficiency 347 54394 E55.9 81881 [id number] Lyn Marmolejo MD [facility]) [address] [place] [address] 07/01/2025 10:24:23 07/02/2025 11:29:38 Atrial fibrillation 09243928 I48.91 warfarin therapy [id number] Lyn Marmolejo MD [facility]) [address] [place] [address] 07/03/2025 08:14:55 07/13/2025 10:06:37 Benign essential hypertension 9423616 I10 Coronary atherosclerosis 833547863 I25.119 Atrial fibrillation 4943 6004 I48.91 warfarin therapyd/c naproxen d/t hx of bleeding Hyperlipidemia 77819921 E78.00 Hypothyroidism 63406378 E03.9 Hyperparathyroidism 6699 9008 E21.3 [id number] Lyn Marmolejo MD [facility] ([facility]) [address] [place] [address] 07/06/2025 11:22:40 07/07/2025 09:33:46 History of mechanical prosthetic mitral valve replacement 511203587 Z95.2 [id number] Lyn Marmolejo MD [facility] ([facility]) [address] [place] [address] 07/09/2025 13:42:58 07/10/2025 14:24:59 Atrial fibrillation 94679028 I48.91 warfarin therapyd/c naproxen d/t hx of bleeding [id number] Lyn Marmolejo MD [facility] ([facility]) [address] [place] [address] 07/14/2025 13:52:08 07/15/2025 10:22:44 Dysuria 14458670 R30.0 [id number] will call with ua results [id number] Lyn Marmolejo MD [facility] ([facility]) [address] [place] [address] 07/16/2025 12:05:46 07/17/2025 11:01:38 Atrial fibrillation 22496275 I48.91 warfarin therapyd/c naproxen d/t hx of bleeding Health Concerns Section Related Observation LastModified by Organization Detai ls LastModified Time None Recorded Concern Status LastModified by Organization Details LastModified Time None Recorded Payers Encounter Date Sequence Insurance Name Policy Number Policy Hernandez Covered Member ID Hernadnez Member ID Guarantor Name 07/16/2025 1 [place]ANT[place] - [place]PO) [id number] Odilia Ulloa [id number] Odilia Ulloa 07/16/2025 2 [place] Odilia Ulloa [id number] Odilia Ulloa OBGyn Episode No OBEpisode recorded.
--- OUTSIDE RECORDS SUMMARY | 2025-10-14 20:07 | XMS_ITS | Continuity of Care Document ---
Author Organization DAI Kenneth Haas [facility] Luis M, Keenan, [facility] ([facility]) Address [address] [place] [address] Care Team Providers Care Senior Environmental Consultant Name Role Phone LYN MARMOLEJO Primary Care Provider Assessment No assessment recorded. Plan of Treatment Reminders Order Date Submit Date Provider Last Modified By Organization Details Last Modified Time Details Appointments None record ed. Lab PT/INR 025 10/09/20 [facility] ([facility]), [address] [place], [address], 11:35:32 Referral None record ed. Procedures None record ed. Surgeries None record ed. Imaging None record ed. Medication Orders None record ed. Patient TargetsNo targets recorded. Patient InstructionsNo instructions recorded. Reason for Referral None Reported. Results Created Date Observation Date Name Description Value Unit Range Abnormal Flag Note LastModifiedBy Organization Detail LastModifiedTime 09/09/2009/09/2025 CMP (FEMA LE) glucose 93.0 mg/dL 60.0-9 9.0 Not Available [facility] [address], [place], [address], 09/09/2025 10:43:31 09/09/20 25 09/09/2025 CMP (FEMA LE) BUN (blood urea nitrogen) 20.0 mg/dL 10.0-2 6.0 Not Available [facility] [address] [facility], [place], [address], 09/09/2025 10:43:31 09/09/20 25 09/09/2025 CMP (FEMA LE) creatinine (serum) 0.9 mg/dL 0.4-1. 5 Not Available [facility] [address] [facility], [place], [address], 09/09/2025 10:43:31 09/09/20 25 09/09/2025 CMP (FEMA LE) BUN/creatini ne ratio 22.22 ratio Not Available [facility] [address], [place], [address], 09/09/2025 10:43:31 09/09/20 25 09/09/2025 CMP (FEMA LE) eGFR calculated 64.9 Not Available [facility] [address], [place], [address], 09/09/2025 10:43:31 09/09/20 25 09/09/2025 CMP (FEMA LE) total protein 7.5 g/dL 6.0-8. 5 Not Available [facility] [address], [place], [address], 09/09/2025 10:43:31 09/09/20 25 09/09/2025 CMP (FEMA LE) total bilirubin 1.1 mg/dL 0.2-1. 3 Not Available [facility] [address], [place], [address], 09/09/2025 10:43:31 09/09/20 25 09/09/2025 CMP (FEMA LE) albumin 5.0 g/dL 3.5-5. 5 Not Available [facility] [address] [facility], [place], [address], 09/09/2025 10:43:31 09/09/20 25 09/09/2025 CMP (FEMA LE) globulin 2.5 calc Not Available [facility] [address] [facility], [place], [address], 09/09/2025 10:43:31 09/09/20 25 09/09/2025 CMP (FEMA LE) AST (SGOT) 35.0 U/L 0.0-46 .0 Not Available [facility] [address] [facility], [place], [address], 09/09/2025 10:43:31 09/09/20 25 09/09/2025 CMP (FEMA LE) altv (SGPT) 17.0 U/L 13.0-6 9.0 normal Not Available [facility] [address] [facility], [place], [address], 09/09/2025 10:43:31 09/09/20 25 09/09/2025 CMP (FEMA LE) A/G ratio 2.0 ratio Not Available [facility] [address] [place] [facility], [place], [address], 09/09/2025 10:43:31 09/09/20 25 09/09/2025 CMP (FEMA LE) ALP phos 77.0 U/L 30.0-1 40.0 normal Not Available [facility] [address] [place] [facility], [place], [address], 09/09/2025 10:43:31 09/09/20 25 09/09/2025 CMP (FEMA LE) calcium 10.4 mg/dL 8.4-10 .5 Not Available [facility] [address] [facility], [place], [address], 09/09/2025 10:43:31 09/09/20 25 09/09/2025 CMP (FEMA LE) sodium 139.0 mmol/ L 136.0- 145.0 Not Available [facility] [address], [place], [address], 09/09/2025 10:43:31 09/09/20 25 09/09/2025 CMP (FEMA LE) potassium 4.2 mmol/ L 3.5-5. 1 Not Available [facility] [address], [place], [address], 09/09/2025 10:43:31 09/09/20 25 09/09/2025 CMP (FEMA LE) chloride 105.0 mmol/ L 98.0-1 10.0 normal Not Available [facility] [address], [place], [address], 09/09/2025 10:43:31 09/09/20 25 09/09/2025 CMP (FEMA LE) C02 28.0 mmol/ L 22.0-3 1.0 Not Available [facility] [address] [address], [place], [address], 09/09/2025 10:43:31 09/09/20 25 09/09/2025 CMP (FEMA LE) anion gap 6.0 calc Not Available [facility] [address], [place], [address], 09/09/2025 10:43:31 09/09/20 25 09/09/2025 CMP (FEMA LE) osmolality 289.3 calc Not Available [facility] [address] [address], [place], [address], 09/09/2025 10:43:31 09/17/20 25 09/17/2025 PT/IN R Protime 27.5 Not Available [facility] [address] [place], [address], 09/17/2025 13:23:29 09/17/20 25 09/17/2025 PT/IN R INR 2.3 Not Available [facility] [address] [place], [address], 09/17/2025 13:23:29 10/08/20 25 10/08/2025 BMP (FEMA LE) glucose 95.0 mg/dL 60.0-9 9.0 Not Available [facility] [address], [place], [address], 10/08/2025 17:19:52 10/08/20 25 10/08/2025 BMP (FEMA LE) BUN (blood urea nitrogen) 22.0 mg/dL 10.0-2 6.0 Not Available [facility] [address], [place], [address], 10/08/2025 17:19:52 10/08/20 25 10/08/2025 BMP (FEMA LE) creatinine (serum) 1.0 mg/dL 0.4-1. 5 Not Available [facility] [address], [place], [address], 10/08/2025 17:19:52 10/08/20 25 10/08/2025 BMP (FEMA LE) BUN/creatini ne ratio 22.00 ratio Not Available [facility] [address], [place], [address], 10/08/2025 17:19:52 10/08/20 25 10/08/2025 BMP (FEMA LE) calcium 10.8 mg/dL 8.4-10 .5 high Not Available [facility] [address], [place], [address], 10/08/2025 17:19:52 10/08/20 25 10/08/2025 BMP (FEMA LE) sodium 140.0 mmol/ L 136.0- 145.0 Not Available [facility] [address], [place], [address], 10/08/2025 17:19:52 10/08/20 25 10/08/2025 BMP (FEMA LE) potassium 4.4 mmol/ L 3.5-5. 1 Not Available [facility] [address], [place], [address], 10/08/2025 17:19:52 10/08/20 25 10/08/2025 BMP (FEMA LE) chloride 101.0 mmol/ L 98.0-1 10.0 normal Not Available [facility] [address], [place], [address], 10/08/2025 17:19:52 10/08/20 25 10/08/2025 BMP (FEMA LE) C02 29.0 mmol/ L 22.0-3 1.0 Not Available [facility] [address], [place], [address], 10/08/2025 17:19:52 10/08/20 25 10/08/2025 BMP (FEMA LE) anion gap 10.0 calc Not Available [facility] [address], [place], [address], 10/08/2025 17:19:52 10/09/20 25 10/09/2025 PT/IN R Protime 50.3 Not Available [facility] [address] [place], [address], 10/09/2025 11:16:11 10/09/20 25 10/09/2025 PT/IN R INR 4.2 Not Available [facility] [address] [place], [address], 10/09/2025 11:16:11 09/09/20 25 09/08/2025 US, echoc ardio gram, trans thora cic, compl ete, w/ color flow No observ ation record ed. QUENTIN [facility] [address] [place], [address], 09/11/2025 09:19:21 09/15/2009/15/2025 MAMMO , scree ilya, digit al, bilat eral No observ ation record ed. jordy [facility] [address] [place], [address], 09/16/2025 16:09:54 Result Notes None recorded. Problems Name Problem SNOMED Code Status Onset Date Resolution Date Notes Provider Name and Address Organization Details Recorded Time Depressi ve disorder 36479567 Completed 202010/14/2021 Depressi on - Status is Inactive ; 10/14/20 11:08AM by Maryellen Marmolejo PA-C, Annotati on/Adden dum; Promoted ; acuity set as *; FELISHA hamilton, [facility] 5 07:56:57 Herpes zoster 8653953 Completed 202201/02/2025 SHINGLES FELISHA DESIR null, [facility] 5 07:56:03 Dysthymi a 76209984 Active 2022 DEPRESSI ON WITH ANXIETY FELISHA hamilton, [facility] 5 07:55:28 Benign essentia l hyperten jovanni 5814115 Active 2022 FELISHA hamilton, [facility] 5 07:55:28 Gastroes ophageal reflux disease 492736975 Active 2022 FELISHA hamilton, [facility] 5 07:55:28 Fracture of upper end of humerus 367355469 Completed 202201/02/2025 CLOSED FRACTURE OF PROXIMAL END OF RIGHT HUMERUS, SEQUELA FELISHA hamilton, [facility] 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 5 07:56:22 Atrial fibrilla tion 11503027 Active 2022 FELISHA DESIR null, [facility] 3 14:45:05 Coronary atherosc lerosis 873509432 Active 2022 bare metal stents to circ and LAD 2011 FELISHA hamilton, [facility] 3 14:46:30 Iron deficien cy anemia 21477135 Active 2022 FELISHA hamilton, [facility] 5 07:55:28 Hypothyr oidism 07265487 Active 2022 FELISHA hamilton, [facility] 3 14:45:59 Anxiety 13697414 Active 2022 FELISHA hamilton, [facility] 3 14:46:54 Viral hepatiti s C 25683484 Active 2022 FELISHA hamilton, [facility] 5 07:55:28 Moderate recurren t major depressi on 99058121 Active 2023 FELISHA hamilton, [facility] 5 07:55:28 Need for personal care assistan ce 66106987035 287225 Active 2023 FELISHA hamilton, [facility] 5 07:55:28 Frail elderly 628303404 Active 2023 FELISHA DESIR null, [facility] 5 07:55:28 Seasonal allergic rhinitis 447698723 Active 2023 FELISHA DESIR null, [facility] 5 07:55:28 Chronic pain 36161768 Active 2023 FELISHA DESIR null, [facility] 5 07:55:28 Dementia 76624355 Active 2023 FELISHA DESIR null, [facility] 5 07:55:28 Constipa tion 51356884 Active 2023 FELISHA DESIR null, [facility] 5 07:55:44 Hyperlip idemia 47965956 Active 2024 FELISHA DESIR null, [facility] 5 07:59:38 Occult blood detected in feces 28500498 Active 2024 FELISHA DESIR null, [facility] 5 09:13:35 Mean corpuscu lar volume above referenc e range 134603458 Active 2024 FELISHA DESIR null, [facility] 5 09:14:07 Hypercal cemia 73711671 Active 2024 FELISHA DESIR null, [facility] 5 10:07:49 Vitamin D deficien cy 13224006 Active 2024 Lyn Marmolejo MD [address] [place], [address], [facility] 5 12:54:55 Hyperpar athyroid ism 07016242 Active 2024 Lyn Marmolejo MD [address] [place], [address], [facility] 5 12:54:56 Dysuria 97503316 Active 2024 Dotty Celis null, [facility] 5 14:08:08 Problem Notes None recorded. Procedures Surgical History Date Name Laterality Status Provider Name and Address Organization Details Recorded Time 2024 Most Recent Mammogram completed FELISHA DESIR [facility] 5 16:09:39 2024 esophagogastroduodenoscopy completed YANELIS DESIR [facility] 5 12:23:16 2024 colonoscopy completed FELISHA [facility] 5 10:20:11 2023 esophagogastroduodenoscopy completed KIARA DUCKWORTH [facility] 4 12:40:14 2023 colonoscopy completed Lyn Marmolejo MD [address] [place], [address], [facility] 5 10:19:30 cholecystectomy completed FELISHA DESIR [facility] 3 14:48:40 replacement of mitral valve complete d FELISHA [facility] 3 14:49:22 section completed FELISHAJAMIE DESIR [facility] 3 15:14:43 Imaging Results None recorded. Procedure Notes None recorded. Medical Equipment None Reported. Allergies Allergen ID Allergen Name Allergen Category Reaction Reaction Severity Criticality Documentation Date Start Date Code Code System Note Provider Name and Address Organization Details Recorded Time 1376 morphine medicatio n Not available Not available Not available 02/07/2023 7052 RxNorm Dotty Celis [facility] 3 10:45:47 1377 diltiazem Not available Not available Not available Not available 02/07/2023 3443 RxNorm Dotty Celis [facility] 3 10:45:54 4552 Bactrim medicatio n other severe high 04/17/2023 28899 9 RxNorm do not give d/t couma din Lola Vidal [facility] 4 13:34:33 56515 diltiazem hydrochlo ride medicatio n Not available Not available Not available 05/26/2023 1 RxNorm Comme nt: Recor ded 12/29 7:56A M by Yanelis Kitchen on, LOCAL AREA NETWORK SYSTEMS ADMINSTRATOR, 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 ; Promo talib; Signi fican ce: *; Reaso n: Drug aller gy; ; FELISHA DESIR [facility] 3 12:26:44 91659 morphine sulfate medicatio n Not available Not available Not available 05/26/2023 78767 RxNorm Comme nt: Recor ded 12/29 7:56A M by Yanelis Kitchen on, LOCAL AREA NETWORK SYSTEMS ADMINSTRATOR, 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 ; Promo talib; Signi fican ce: *; Reaso n: Drug aller gy; ; FELISHA DESIR [facility] 3 12:26:48 Medications Name Sig [...] THSC Levothyro xine Sodium daily 06/08 completed 02454; Recorded 01/09/20 6:06PM by Shirley Quevedo (Authori [...] History Question Answer Notes LastModified by Organizat [employer] Details LastModified Time Tobacco Smoking Status Former Smoker FELISHA hamilton [facility] 04/17/2023 14:48:01 What Was The Date Of Your Most Recent Tobacco Screening? 05/27/2025 [email or web address] Information not available 05/27/2025 Sex: Unknown Functional Status Question Answer Note LastModified by [employer] Details LastModified Time Do you use any illicit or recreational drugs? No [email or web address] Information not available 04/17/2023 Do you or have you ever used any other forms of tobacco or nicotine? No [email or web address] Information not available 06/29/2023 What is your level of alcohol consumption? None [email or web address] Information not available 04/17/2023 Mental Status None recorded. Family History Relationship Description Onset Age of this Age Resolved Age Notes LastModified by Organization Details LastModified Time Unspecified Relation Coronary atherosclero sis [email or web address] Not available 06/29 15:13:48 Medical History No [...] or 50 mcg/0.25mL dose 1 [facility] 10/10/2024 08:38:58 COVID-19, mRNA, LNP-S, PF, 100 mcg/0.5mL dose or 50 mcg/0.25mL dose 2 completed [facility] 10/10/2024 08:38:58 Pneumococcal conjugate PCV20, polysaccharide TLD103 conjugate, adjuvant, PF 3 completed FELISHA hamilton [facility] 10/10/2024 08:38:58 COVID-19, mRNA, LNP-S, bivalent, PF, 50 mcg/0.5 mL or 25mcg/0.25 mL dose 3 completed [facility] 10/10/2024 08:38:58 pneumococcal polysaccharide PPV23 3 completed [facility] 04/17/2023 12:02:00 Tdap 1 completed [facility] 10/10/2024 08:38:58 Influenza, split virus, trivalent, PF 3 completed [facility] 04/17/2023 12:02:00 influenza, split (incl. purified surface antigen) 0 completed [facility] 04/17/2023 12:02:00 Hep A, adult 1 completed FELISHA hamilton [facility] 10/10/2024 08:38:58 Hep A, adult 9 completed [facility]ISHA DESIR null, [facility] [...] polysaccharide PPV23 8 completed Lola Vidal null, [facility] 07/02/2024 08:41:52 Influenza, split virus, quadrivalent, PF 8 completed Lola Vidal null, [facility] 07/02/2024 08:41:52 zoster recombinant 3 completed Lola Vidal null, [facility] 07/02/2024 14:52:40 COVID-19, mRNA, LNP-S, PF, 50 mcg/0.5 mL 4 completed FELISHA DESIR null, [facility] 10/10/2024 08:38:58 Influenza, MDCK, trivalent, preservative 4 completed FELISHA DESIR null, [facility] 10/10/2024 08:38:58 Influenza, high-dose, trivalent, PF 5 completed Not Available [facility] 10/13/2025 09:55:50 Past Encounters Encounter ID Performer Location Encounter Start Date Encounter Closed Date Diagnosis/Indication Diagnosis SNOMED-CT Code Diagnosis ICD10 Code Diagnosis IMO Codes Diagnosis Note [id number] Lyn Marmolejo MD [facility] ([facility]) [address] [place] [address] 09/09/2025 09:58:14 09/10/2025 09:52:18 Benign essential hypertension 1426352 I10 [id number] Lyn Marmolejo MD [facility]) [address] [place] [phone] 09/17/2025 13:22:57 09/18/2025 10:36:49 Atrial fibrillation 84031649 I48.91 warfarin therapyd/c naproxen d/t hx of bleeding [id number] Lyn Marmolejo MD [facility]) [address] [place] [address] 10/02/2025 07:57:06 10/07/2025 10:51:15 Benign essential hypertension 1798986 I10 Coronary atherosclerosis 810557225 I25.119 Atrial fibrillation 4943 6004 I48.91 Hyperlipidemia 00998001 E78.00 Hypothyroidism 82033120 E03.9 Hyperparathyroidism 6699 9008 E21.3 54916 [id number] Lyn Marmolejo MD [facility]) [address] [place] [address] 10/08/2025 15:40:56 10/09/2025 09:52:26 Benign essential hypertension 2553662 I10 [id number] Lyn Marmolejo MD [facility] ([facility]) [address] [place] [phone] 10/09/2025 11:15:20 10/12/2025 09:29:00 Atrial fibrillation 03807247 I48.91 Health Concerns Section Related Observation LastModified by Organization Detai ls LastModified Time None Recorded Concern Status LastModified by Organization Details LastModified Time None Recorded Payers Encounter Date Sequence Insurance Name Policy Number Policy Hernandez Covered Member ID Hernandez Member ID Guarantor Name 10/09/2025 1 [place]ANT[place] - PPO) [id number] Odilia Ulloa [id number] Odilia Ulloa 10/09/2025 2 [place] Odilia Ulloa [id number] Odilia Ulloa OBGyn Episode No OBEpisode recorded.
--- OUTSIDE RECORDS SUMMARY | 2025-10-14 20:07 | XMS_ITS | Encounter Summary ---
Author Organization [facility] Address [address] [place] [address] Care Team Providers Care Crisis Clinician Name Role Phone Rico Muñiz MD, Sharan Jaime Primary Care Provider Encounter Details Date Type Department Care Team (Latest Contact Info) Description 08/31/2000 Outpatient Historical [facility] Sharan Gómez Jr., MD [address] [place] [address] Pure hypercholesterolem (Primary Dx); Dietary surveil/addiction counselor Social History Tobacco Use Types Packs/Day Years Used Date Smoking Tobacco: Never Assessed Comments Unknown Sex and Gender Information Value Date Recorded Sex Assigned at Not on file Legal Sex 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
--- OUTSIDE RECORDS SUMMARY | 2025-10-14 20:08 | XMS_ITS | Encounter Summary ---
Author Organization [facility] Address [address] [place] [address] Care Team Providers Care Warper Creeler Name Role Phone Rico Muñiz MD, Sharan Jaime Primary Care Provider Encounter Details Date Type Department Care Team (Late st Contact Info) Description 2020 Lab Requisition [facility] [address] [place] [phone] Tabatha Lynn, [facility] [address] [place] [address] Social History Tobacco Use Types Packs/Day Years Used Date Smoking Tobacco: Never Assessed Comments Unknown Sex and Gender Information Value Date Recorded Sex Assigned at Not on file Legal Sex Female 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 Gender Identity Not on file Sexual Orientation Not on file documented as of this encounter Plan of Treatment Not on file documented as of this encounter Procedures Procedure Name Priority Date/Time Associated Diagnosis Comments PROTIME-INR Routine 2020 6:14 AM HAND MICA PLATE LAYER documented in this encounter Results * (ABNORMAL) PROTIME-INR (2020 6:14 AM HAND MICA PLATE LAYER) PROTIME 23.0(H) 11.9 - 15.5 Seconds 2020 7:28 PM HAND MICA PLATE LAYER [facility] INR 2.0(H) 0.8 - 1.2 2020 7:28 PM HAND MICA PLATE LAYER [facility] [employer] [facility] Blood Collection / Unknown 2020 6:14 AM HAND MICA PLATE LAYER 2020 7:05 PM HAND MICA PLATE LAYER Narrative [facility] - 2020 7:28 PM HAND MICA PLATE LAYER Expected Values for INR: DVT/PE Goal INR [...] available from the pharmacy Ej Martins D. Tabatha Neff CASHIER ASSISTANT HEMATOLOGY ORDERABLES Final Result Performing Organization Address City/State/RUST Co de Phone Number [facility] [address] [place] [address] documented in this encounter Visit Diagnoses Not on filedocumented in this encounter Care Teams Warper Creeler Relationship Specialty Start Date End Date Sharan Gómez Jr., MD [address] [place] [address] PCP - General 08/10/05 documented as of this encounter
--- OUTSIDE RECORDS SUMMARY | 2025-10-14 20:08 | XMS_ITS | Clinical Summary ---
Author Organization [facility] Address [address] [place] [address] Phone Care Team Providers Care Electrical Engineering Director Name Role Phone Rico Muñiz MD, [...] file Legal Sex Female 5:42 AM MEDICARE BILLER Gender Identity Not on file Sexual [...] Insurance [employer] [place]ICAID [place] Care Teams Electrical Engineering Director Relationship Specialty Start Date End Date Sharan Gómez Jr., MD [address] [place] [address] PCP - General 08/10/05
--- OUTSIDE RECORDS SUMMARY | 2025-10-14 20:08 | XMS_ITS | Encounter Summary ---
Author Organization [facility] Address [address] [place] [address] Care Team Providers Care Cash Posting Clerk Name Role Phone Rico Muñiz MD, Sharan Jaime Primary Care Provider Encounter Details Date Type Department Care Team (Latest Contact Info) Description 03/18/1999 Outpatient Historical [facility] Sharan Gómez Jr., MD [address] [place] [address] Endocarditis, valve unspecified, unspecified cause (Primary Dx); USP (current) use of anticoagulants Social History Tobacco Use Types Packs/Day Years Used Date Smoking Tobacco: Never Assessed Comments Unknown Sex and Gender Information Value Date Recorded Sex Assigned at Not on file 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
--- OUTSIDE RECORDS SUMMARY | 2025-10-14 20:08 | XMS_ITS | Encounter Summary ---
Author Organization [facility] Address [address] [facility] Attn: [place] [address] Care Team Providers Care Molasses Coloring Operator Name Role Phone Rico Muñiz MD, Sharan Jaime Primary Care Provider Encounter Details Date Type Department Care Team (Late st Contact Info) Description 02/15/2001 Outpatient Historical Sharan Gómez Jr., MD [address] [place] [address] Social History Tobacco Use Types Packs/Day Years Used Date Smoking Tobacco: Never Assessed Comments Unknown Sex and Gender Information Value Date Recorded Sex Assigned at Not on file Legal 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
--- OUTSIDE RECORDS SUMMARY | 2025-10-14 20:08 | XMS_ITS | Encounter Summary ---
Author Organization [facility] Address [address] [place] [address] Care Team Providers Care Tortilla Maker Name Role Phone Rico Muñiz MD, Sharan Jaime Primary Care Provider Encounter Details Date Type Department Care Team (Late st Contact Info) Description 10/18/2020 Lab Requisition [facility] Laboratory Services [address] [place] [phone] Tabatha Lynn, [facility] [address] [place] [address] Social History Tobacco Use Types Packs/Day Years Used Date Smoking Tobacco: Never Assessed Comments Unknown Sex and Gender Information Value Date Recorded Sex Assigned at Not on file Legal Sex Female 5:42 AM GENERAL INTERNAL MEDICINE PHYSICIAN Gender Identity Not on file Sexual Orientation Not on file documented as of this encounter Plan of Treatment Not on file documented as of this encounter Procedures Procedure Name Priority Date/Time Associated Diagnosis Comments PROTIME-INR Routine 10/18/2020 6:34 AM GENERAL INTERNAL MEDICINE PHYSICIAN documented in this encounter Results * (ABNORMAL) PROTIME-INR (10/18/2020 6:34 AM GENERAL INTERNAL MEDICINE PHYSICIAN) PROTIME 34.1(H) 11.9 - 15.5 Seconds 10/18/2020 5:19 PM GENERAL INTERNAL MEDICINE PHYSICIAN [facility] INR 3.2(H) 0.8 - 1.2 10/18/2020 5:19 PM GENERAL INTERNAL MEDICINE PHYSICIAN [facility] [employer] [facility] Blood Collection / Unknown 10/18/2020 6:34 AM GENERAL INTERNAL MEDICINE PHYSICIAN 10/18/2020 4:57 PM GENERAL INTERNAL MEDICINE PHYSICIAN Narrative [facility] - 10/18/2020 5:19 PM GENERAL INTERNAL MEDICINE PHYSICIAN Expected Values for INR: DVT/PE Goal [...] for Anticoagulation available from the pharmacy [facility]. Tabatha Neff NANOSYSTEMS ENGINEER HEMATOLOGY ORDERABLES Final Result Performing Organization Address City/State/[facility] Co de Phone Number [facility] [address] [place] [address] documented in this encounter Visit Diagnoses Not on filedocumented in this encounter Care Teams Tortilla Maker Relationship Specialty Start Date End Date Sharan Gómez Jr., MD [address] [place] [address] PCP - General 08/10/05 documented as of this encounter
--- OUTSIDE RECORDS SUMMARY | 2025-10-14 20:08 | XMS_ITS | Encounter Summary ---
Author Organization [facility] Address [address] [place] [address] Care Team Providers Care Veterinarian Assistant Name Role Phone Rico Muñiz MD, Sharan Jaime Primary Care Provider Encounter Details Date Type Department Care Team (Late st Contact Info) Description 10/16/2020 Lab Requisition [facility] General Laboratory Services [place] [address] [place] [id number] Mtnv, External Provider [address] [facility] [address] [place] [address] Social History Tobacco Use Types Packs/Day Years Used Date Smoking Tobacco: Never Assessed Comments Unknown Sex and Gender Information Value Date Recorded Sex Assigned at Not on file Legal Sex Female 5:42 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 Gender Identity Not on file Sexual Orientation Not on file documented as of this encounter Plan of Treatment Not on file documented as of this encounter Procedures Procedure Name Priority Date/Time Associated Diagnosis Comments PROTIME-INR Routine 10/16/2020 10:20 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 documented in this encounter Results * (ABNORMAL) PROTIME-INR (10/16/2020 10:20 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) PROTIME 42.0(H) 12.0 - 14.4 Seconds 10/16/2020 12:05 PM PROCEDURES NURSE [facility] INR 4.7(H) 0.8 - 1.2 10/16/2020 12:05 PM PROCEDURES NURSE [facility] Blood 10/16/2020 10:2 0 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 10/16/2020 11:47 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 us External Provider [employer]tn[employer] HEMATOLOGY ORDERABLES Fin al Result [facility] CLIA # [id number] [address] [place] [id number] documented in this encounter Visit Diagnoses Not on filedocumented in this encounter Care Teams Veterinarian Assistant Relationship Specialty Start Date End Date Sharan Gómez Jr., MD [address] [place] [address] PCP - General 08/10/05 documented as of this encounter
--- OUTSIDE RECORDS SUMMARY | 2025-10-14 20:08 | XMS_ITS | Encounter Summary ---
Author Organization [facility] Address [address] [place] [address] Care Team Providers Care Construction Ironworker Helper Name Role Phone Rico Muñiz MD, Sharan Jaime Primary Care Provider Encounter Details Date Type Department Care Team (Latest Contact Info) Description 04/18/1999 Outpatient Historical [facility] Sharan Gómez Jr., MD [address] [place] [address] Headache(784.0) (Primary Dx); Unspecified essential hypertension; terminologist (current) use of anticoagulants Social History Tobacco Use Types Packs/Day Years Used Date Smoking Tobacco: Never Assessed Comments Unknown Sex and Gender Information Value Date Recorded Sex Assigned at Not on file 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
--- OUTSIDE RECORDS SUMMARY | 2025-10-14 20:08 | XMS_ITS | Continuity of Care Document ---
Author Organization DAI Kenneth Haas [facility] Luis M, Keenan [facility] ([facility]) Address [address] [place] [address] Care Team Providers Care Interventional Pain Physician Name Role Phone LYN MARMOLEJO Primary Care Provider Assessment No assessment recorded. Plan of Treatment Reminders Order Date Submit Date Provider Last Modified By Organization Details Last Modified Time Details Appointments None record ed. Lab PT/INR 025 09/17/20 [facility] ([facility]), [address] [place], [address], 13:36:28 Referral None record ed. Procedures None record ed. Surgeries None record ed. Imaging None record ed. Medication Orders None record ed. Patient TargetsNo targets recorded. Patient InstructionsNo instructions recorded. Reason for Referral None Reported. Results Created Date Observation Date Name Description Value Unit Range Abnormal Flag Note LastModifiedBy Organization Detail LastModifiedTime 08/17/2008/17/2025 CBC WBC 6.3 x10 4.0-10 .5 Not Available [facility] [address] [facility] [address], [place], [address], 08/17/2025 15:57:00 08/17/2008/17/2025 CBC RBC 3.45 x10 3.50-5 .50 low Not Available [facility] [address] [facility] [address], [place], [address], 08/17/2025 15:57:00 08/17/2022 0808/17/2025 CBC HGB 12.4 g/dL 12.0-1 6.0 Not Available [facility] [address] [facility], [place], [address], 08/17/2025 15:57:00 08/17/20 25 08/17/2025 CBC HCT 37.7 % 37.0-4 7.0 Not Available [facility] [address] [facility], [place], [address], 08/17/2025 15:57:00 08/17/2008/17/2025 CBC MCV 109.2 fL 80.0-9 9.9 high Not Available [facility] [address] [facility] [facility], [place], [address], 08/17/2025 15:57:00 08/17/20 25 08/17/2025 CBC MCH 36.0 pg 27.0-3 2.0 high Not Available [facility] [address] [place] [facility] 1, [place], [address], 08/17/2025 15:57:00 08/17/20 25 08/17/2025 CBC MCHC 32.9 g/dL 32.0-3 6.0 Not Available [facility] [address] [place] [facility], [place], [address], 08/17/2025 15:57:00 08/17/20 25 08/17/2025 CBC RDW 12.7 % 11.5-1 4.5 Not Available [facility] [address] [place] [facility] 1, [place], [address], 08/17/2025 15:57:00 08/17/2008/17/2025 CBC plt 239.0 x10 140.0- 451.0 Not Available [facility] [address] [facility], [place], [address], 08/17/2025 15:57:00 08/17/20 25 08/17/2025 CBC lymphocytes % 27.7 % 20.0-5 0.0 Not Available [facility] [address] [facility], [place], [address], 08/17/2025 15:57:00 08/17/20 25 08/17/2025 CBC granulcytes % 56.9 % 30.0-7 0.0 Not Available [facility] [address] [place] [facility] 1, [place], [address], 08/17/2025 15:57:00 08/17/20 25 08/17/2025 CBC monocytes % 10.1 % 2.0-16 .0 Not Available [facility] [address] [place] [facility], [place], [address], 08/17/2025 15:57:00 08/17/20 25 08/17/2025 CBC granulcytes# 3.6 x10 Not Cyndi ilable [facility] [address] [facility] [address], [place], [address], 08/17/2025 15:57:00 08/17/20 25 08/17/2025 CBC lymphocytes # 1.8 x10 Not Available [facility] [address] [facility] [address], [place], [address], 08/17/2025 15:57:00 08/17/20 25 08/17/2025 CBC monocytes # 0.6 x10 Not Avai lable [facility] [address] [facility] [address], [place], [address], 08/17/2025 15:57:00 08/17/20 25 08/17/2025 TSH TSH 0.81 uIU/m L 0.49-3 .82 Not Available [facility] [address] [place] [facility] 1, [place], [address], 08/17/2025 16:04:05 08/17/20 25 08/18/2025 PERIP HERAL BLOOD SMEAR REVIE W peripheral blood smear review Macro cytos is 1 + Ovalo cytes 1 + Polyc hroma mikhail 1 + Revie w of the perip heral smear revea ls adequ ate numbe rs of plate lets. Revie w of perip heral smear confi jace autom ated resul ts. Not Available [facility] [address] [place], [address], 08/18/2025 15:11:08 08/17/20 25 08/19/2025 METHY LMALO [...] : 63-24 1 nmol/ L Not Available [facility] [address] [place], [address], 08/20/2025 00:38:15 08/17/2008/19/2025 METHY LMALO SE ACID [...] cteri stics have been deter mined by [facility]. It has not been clear ed or appro shiela by the FDA. This assay has been valid ated pursu ant to the CLIA regul ation s and is used for clini luisito purpo ses. Not Available [facility] [address] [place] [address] [place], [address], 08/20/2025 00:38:15 08/17/2008/19/2025 PROTE IN, TOTAL AND PROTE IN ELECT ROPHO RESIS W/ REFL [place] protein, total 7.1 g/dL 6.1-8. 1 normal Not Available [facility] [address] [address] [place], [address], 08/20/2025 00:38:16 08/17/2008/19/2025 PROTE IN, TOTAL AND PROTE IN ELECT ROPHO RESIS W/ REFL [place] albumin 4.5 g/dL 3.8-4. 8 normal Not Available [facility] [address] [address] [place], [address], 08/20/2025 00:38:16 08/17/2008/19/2025 PROTE IN, TOTAL AND PROTE IN ELECT ROPHO RESIS W/ REFL [place] alpha 1 globulin 0.3 g/dL 0.2-0. 3 normal Not Available [address], [address], 08/20/2025 00:38:16 08/17/20 25 08/19/2025 PROTE IN, TOTAL AND PROTE IN ELECT ROPHO RESIS W/ REFL [place] alpha 2 globulin 0.5 g/dL 0.5-0. 9 normal Not Available [address], [address], 08/20/2025 00:38:16 08/17/2008/19/2025 PROTE IN, TOTAL AND PROTE IN ELECT ROPHO RESIS W/ REFL [place] beta 1 globulin 0.4 g/dL 0.4-0. 6 normal Not Available [address], [address], 08/20/2025 00:38:16 08/17/20 25 08/19/2025 PROTE IN, TOTAL AND PROTE IN ELECT ROPHO RESIS W/ REFL [place] beta 2 globulin 0.3 g/dL 0.2-0. 5 normal Not Available [address], [address], 08/20/2025 00:38:16 08/17/20 25 08/19/2025 PROTE IN, TOTAL AND PROTE IN ELECT ROPHO RESIS W/ REFL [place] gamma globulin 1.1 g/dL 0.8-1. 7 normal Not Available [address], [address], 08/20/2025 00:38:16 08/17/2008/19/2025 PROTE IN, TOTAL AND PROTE IN ELECT ROPHO RESIS W/ REFL [place] interpretati on No restr icted band (M-sp mera) seen. Not Available [address], [address], 08/20/2025 00:38:16 08/17/20 25 08/19/2025 PTH, INTAC [...] or Low Joie l High Not Available [address], [address], 08/20/2025 00:38:16 08/17/20 25 08/19/2025 PTH, INTAC T (ICMA ) AND IONIZ ED CALCI UM calcium 10.2 mg/dL 8.6-10 .4 normal Not Available [address], [address], 08/20/2025 00:38:16 08/17/20 25 08/19/2025 PTH, INTAC T (ICMA ) AND IONIZ ED CALCI UM calcium, ionized 5.6 mg/dL 4.7-5. 5 high Not Available [facility] [address], [address], 08/20/2025 00:38:16 08/17/20 25 08/19/2025 T4, FREE T4, free 1.9 NG/dL 0.8-1. 8 high Not Available [facility] [address], [address], 08/20/2025 00:38:17 08/17/20 25 08/19/2025 VITAM IN B12 vitamin B12 >2000 pg/mL 200-11 00 high Not Available [facility] [address] [place], [address], 08/20/2025 00:38:18 08/17/2008/17/2025 PT/IN R Protime 21.5 Not Available [facility] ([facility]) [address] [place], [address], 08/17/2025 14:33:48 08/17/20 25 08/17/2025 PT/IN R INR 1.8 Not Available [facility] ([facility]) [address] [place] [address], [address], 08/17/2025 14:33:48 09/02/20 25 09/02/2025 PT/IN R Protime 29.0 Not Available [facility] ([facility]) [address] [place] [address], [address], 09/02/2025 13:17:30 09/02/20 25 09/02/2025 PT/IN R INR 2.4 Not Available [facility] ([facility]) [address] [place] [address], [address], 09/02/2025 13:17:30 09/09/20 25 09/09/2025 CMP (FEMA LE) glucose 93.0 mg/dL 60.0-9 9.0 Not Available [address], [address], 09/09/2025 10:43:31 09/09/20 25 09/09/2025 CMP (FEMA LE) BUN (blood urea nitrogen) 20.0 mg/dL 10.0-2 6.0 Not Available [facility] [address] [place] [address] [place], [address], 09/09/2025 10:43:31 09/09/20 25 09/09/2025 CMP (FEMA LE) creatinine (serum) 0.9 mg/dL 0.4-1. 5 Not Available [facility] [address] [facility] 1, [place], [address], 09/09/2025 10:43:31 09/09/20 25 09/09/2025 CMP (FEMA LE) BUN/creatini ne ratio 22.22 ratio Not Available [facility] [address] [facility], [place], [address], 09/09/2025 10:43:31 09/09/20 25 09/09/2025 CMP (FEMA LE) eGFR calculated 64.9 Not Available [facility] [address] [facility], [place], [address], 09/09/2025 10:43:31 09/09/20 25 09/09/2025 CMP (FEMA LE) total protein 7.5 g/dL 6.0-8. 5 Not Available [facility] [address] [facility], [place], [address], 09/09/2025 10:43:31 09/09/20 25 09/09/2025 CMP (FEMA LE) total bilirubin 1.1 mg/dL 0.2-1. 3 Not Available [facility] [address] [place] [facility], [place], [address], 09/09/2025 10:43:31 09/09/20 25 09/09/2025 CMP (FEMA LE) albumin 5.0 g/dL 3.5-5. 5 Not Available [facility] [address] [place] [facility], [place], [address], 09/09/2025 10:43:31 09/09/20 25 09/09/2025 CMP (FEMA LE) globulin 2.[address] [facility] [address] [place] [facility], [place], [address], 09/09/2025 10:43:31 09/09/20 25 09/09/2025 CMP (FEMA LE) AST (SGOT) 35.0 U/L 0.0-46 .0 Not Available [facility] [address] [facility], [place], [address], 09/09/2025 10:43:31 09/09/20 25 09/09/2025 CMP (FEMA LE) altv (SGPT) 17.0 U/L 13.0-6 9.0 normal Not Available [facility] [address] [facility] 1, [place], [address], 09/09/2025 10:43:31 09/09/20 25 09/09/2025 CMP (FEMA LE) A/G ratio 2.0 ratio Not Available [facility] [address] [facility] [address], [place], [address], 09/09/2025 10:43:31 09/09/20 25 09/09/2025 CMP (FEMA LE) ALP phos 77.0 U/L 30.0-1 40.0 normal Not Available [facility] [address] [place] [facility], [place], [address], 09/09/2025 10:43:31 09/09/20 25 09/09/2025 CMP (FEMA LE) calcium 10.4 mg/dL 8.4-10 .5 Not Available [facility] [address] [facility] [address], [place], [address], 09/09/2025 10:43:31 09/09/20 25 09/09/2025 CMP (FEMA LE) sodium 139.0 mmol/ L 136.0- 145.0 Not Available [facility] [address] [facility], [place], [address], 09/09/2025 10:43:31 09/09/20 09/09/2025 CMP (FEMA LE) potassium 4.2 mmol/ L 3.5-5. 1 Not Available [facility] [address] [facility], [place], [address], 09/09/2025 10:43:31 09/09/20 25 09/09/2025 CMP (FEMA LE) chloride 105.0 mmol/ L 98.0-1 10.0 normal Not Available [facility] [address] [facility] 1, [place], [address], 09/09/2025 10:43:31 09/09/20 25 09/09/2025 CMP (FEMA LE) C02 28.0 mmol/ L 22.0-3 1.0 Not Available [facility] [address] [facility] 1, [place], [address], 09/09/2025 10:43:31 09/09/20 25 09/09/2025 CMP (FEMA LE) anion gap 6.0 calc Not Available [facility] [address] [facility] 1, [place], [address], 09/09/2025 10:43:31 09/09/20 25 09/09/2025 CMP (FEMA LE) osmolality 289.3 calc Not Available [facility] [address] [facility] 1, [place], [address], 09/09/2025 10:43:31 09/17/20 25 09/17/2025 PT/IN R Protime 27.5 Not Available [facility] ([facility]) [address] [place] [address], [address], 09/17/2025 13:23:29 09/17/20 25 09/17/2025 PT/IN R INR 2.3 Not Available [facility] ([facility]) [address] [place] [address], [address], 09/17/2025 13:23:29 09/09/20 25 09/08/2025 US, echoc ardio gram, trans thora cic, compl ete, w/ color flow No observ ation record ed. QUENTIN [facility] [address] [place], [address], 09/11/2025 09:19:21 09/15/2009/15/2025 MAMMO , scree ilya, digit al, bilat eral No observ ation record ed. [id number] [place] [address] [address] [place], [address], 09/16/2025 16:09:54 Result Notes None recorded. Problems Name Problem SNOMED Code Status Onset Date Resolution Date Notes Provider Name and Address Organization Details Recorded Time Depressi ve disorder 98185502 Completed 202010/14/2021 Depressi on - Status is Inactive ; 10/14/20 11:08AM by Maryellen Marmolejo PA-C, Annotati on/Adden dum; Promoted ; acuity set as *; FELISHA hamilton, [facility] 5 07:56:57 Herpes zoster 4564681 Completed 202201/02/2025 SHINGLES FELISHA hamilton, [facility] 5 07:56:03 Dysthymi a 45757357 Active 2022 DEPRESSI ON WITH ANXIETY FELISHA hamilton, [facility] 5 07:55:28 Benign essentia l hyperten jovanni 6953948 Active 2022 FELISHA hamilton, [facility] 5 07:55:28 Gastroes ophageal reflux disease 899398525 Active 2022 FELISHA hamilton [facility] 5 07:55:28 Fracture of upper end of humerus 393245967 Completed 202201/02/2025 CLOSED FRACTURE OF PROXIMAL END OF RIGHT HUMERUS, SEQUELA FELISHA hamilton, [facility] 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 5 07:56:22 Atrial fibrilla tion 52048033 Active 2022 FELISHA hamilton, [facility] 3 14:45:05 Coronary atherosc lerosis 881851943 Active 2022 bare metal stents to circ and LAD 2011 FELISHA hamilton [facility] 3 14:46:30 Iron deficien cy anemia 85700801 Active 2022 FELISHA hamilton, [facility] 5 07:55:28 Hypothyr oidism 76927172 Active 2022 FELISHA hamilton, [facility] 3 14:45:59 Anxiety 94580382 Active 2022 FELISHA hamilton [facility] 3 14:46:54 Viral hepatiti s C 72053450 Active 2022 FELISHA hamilton [facility] 5 07:55:28 Moderate recurren t major depressi on 09668880 Active 2023 FELISHA hamilton [facility] 5 07:55:28 Need for personal care assistan ce [id number] 429738 Active 2023 FELISHA hamilton, [facility] 5 07:55:28 Frail elderly 635819359 Active 2023 FELISHA DESIR null, [facility] 5 07:55:28 Seasonal allergic rhinitis 449667590 Active 2023 FELISHA DESIR null, [facility] 5 07:55:28 Chronic pain 36339394 Active 2023 FELISHA DESIR null, [facility] 5 07:55:28 Dementia 82159890 Active 2023 FELISHA DESIR null, [facility] 5 07:55:28 Constipa tion 01225389 Active 2023 FELISHA DESIR null, [facility] 5 07:55:44 Hyperlip idemia 38105055 Active 2024 FELISHA DESIR null, [facility] 5 07:59:38 Occult blood detected in feces 10511306 Active 2024 FELISHA DESIR null, [facility] 5 09:13:35 Mean corpuscu lar volume above referenc e range 758343775 Active 2024 FELISHA DESIR null, [facility] 5 09:14:07 Hypercal cemia 80796442 Active 2024 FELISHA DESIR null, [facility] 5 10:07:49 Vitamin D deficien cy 94033917 Active 2024 Lyn Marmolejo MD [address] [place] [address], [address], [facility] 5 12:54:55 Hyperpar athyroid ism 59400814 Active 2024 Lyn Marmolejo MD [address] [place], [address], [facility], Diane.LJosueCJosue 5 12:54:56 Dysuria 79963405 Active 2024 Dotty Celis null, [facility] 5 14:08:08 Problem Notes None recorded. Procedures Surgical History Date Name Laterality Status Provider Name and Address Organization Details Recorded Time 2024 Most Recent Mammogram completed FELISHA [facility] 5 16:09:39 2024 esophagogastroduodenoscopy completed YANELIS WELSH [facility] 5 12:23:16 2024 colonoscopy [address] [facility] 5 10:20:11 2023 esophagogastroduodenoscopy completed KIARA DUCKWORTH [facility] 4 12:40:14 2023 colonoscopy completed Lyn Marmolejo MD [address] [place], [address], [facility] 5 10:19:30 cholecystectomy completed FELISHA [facility] 3 14:48:40 replacement of mitral valve complete d FELISHA [facility] L[facility]ue[facility] 3 14:49:22 section completed FELISHA [facility] 3 15:14:43 Imaging Results None recorded. Procedure Notes None recorded. Medical Equipment None Reported. Allergies Allergen ID Allergen Name Allergen Category Reaction Reaction Severity Criticality Documentation Date Start Date Code Code System Note Provider Name and Address Organization Details Recorded Time 1376 morphine medicatio n Not available Not available Not available 02/07/2023 7052 RxNorm [facility] 10:45:47 1377 diltiazem Not available Not available Not available Not available 02/07/2023 3443 RxNorm Dotty [facility] 3 10:45:54 4552 Bactrim medicatio n other severe high 04/17/2023 82636 9 RxNorm do not give d/t couma din Lola Marcy [facility] 4 13:34:33 18117 diltiazem hydrochlo ride medicatio n Not available Not available Not available 05/26/202356986 1 RxNorm Comme nt: Recor ded 12/29 7:56A M by Yanelis Kitchen on, MEDICAL INFORMATION OFFICER, 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 ; Promo talib; Signi fican ce: *; Reaso n: Drug aller gy; ; [facility] 3 12:26:44 99235 morphine sulfate medicatio n Not available Not available Not available 05/26/2023 77568 RxNorm Comme nt: Recor ded 12/29 7:56A M by Yanelis Kitchen on, MEDICAL INFORMATION OFFICER, 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 ; Promo talib; Signi fican ce: *; Reaso n: Drug aller gy; ; [facility] 3 12:26:48 Medications Name Sig Start Date Stop Date Status Note LastModified by Organization Details LastModified Time furosemid e 40 mg tablet TAKE 1 AND 1/2 TABLETS BY MOUTH EVERY DAY FOR EDEMA 10/02 completed Not Available Not Available Not Available Miralax 17 gram/dose oral powder Take 17 g every day by oral route as needed, for hard stools. 03/07/ 2025 active Not Available Not Available Not Avai [...] Thank you.; Recorded 11/15/19 3:06PM by Zehra Gonzlaez LPN, Historic al Summary; Refill Quantity : [...] THSC Levothyro xine Sodium daily 06/08 completed 44486; Recorded 01/09/20 6:06PM by Shirley Quevedo (Authori [...] Tobacco Smoking Status Former Smoker FELISHA hamilton [facility] 04/17/2023 14:48:01 What Was The Date Of Your Most Recent Tobacco Screening? 05/27/2025 [email or web address] Information not available 05/27/2025 Sex: Unknown Functional Status Question Answer Note LastModified by Organizat ion Details LastModified Time Do you use any illicit or recreational drugs? No [email or web address] Information not available 04/17/2023 Do you or have you ever used any other forms of tobacco or nicotine? No [email or web address] Information not available 06/29/2023 What is your level of alcohol consumption? None [email or web address] Information not available 04/17/2023 Mental Status None recorded. Family History Relationship Description Onset Age of this Age Resolved Age Notes LastModified by Organization Details LastModified Time Unspecified Relation Coronary atherosclero sis [email or web address] Not available 06/29 15:13:48 Medical History No medical history recorded. Gynecological History Statement/Question Response Most Recent Mammogram 09/15/2025 Obstetrics History GPAL:G 0 P 0 0 0 0 Immunizations Vaccine Type Date Status Note Provider Nam e and Address Organization Details Recorded Time Influenza, MDCK, quadrivalent, PF 2 completed DAI [facility] 10/10/2024 08:38:58 COVID-19, mRNA, LNP-S, PF, 100 mcg/0.5mL dose or 50 mcg/0.25mL dose 1 completed FELISHA DESIR null, [facility] 10/10/2024 08:38:58 COVID-19, mRNA, LNP-S, PF, 100 mcg/0.5mL dose or 50 mcg/0.25mL dose 1 completed [facility] 10/10/2024 08:38:58 COVID-19, mRNA, LNP-S, PF, 100 mcg/0.5mL dose or 50 mcg/0.25mL dose 2 completed FELISHA hamilton, [facility] 10/10/2024 08:38:58 Pneumococcal conjugate PCV20, polysaccharide LAI025 conjugate, adjuvant, PF 3 completed [facility] 10/10/2024 08:38:58 COVID-19, mRNA, LNP-S, bivalent, PF, 50 mcg/0.5 mL or 25mcg/0.25 mL dose 3 completed [facility] 10/10/2024 08:38:58 pneumococcal polysaccharide PPV23 3 completed [facility] 04/17/2023 12:02:00 Tdap 1 completed FELISHA hamilton, [facility] 10/10/2024 08:38:58 Influenza, split virus, trivalent, PF 3 completed FELISHA hamilton, [facility] 04/17/2023 12:02:00 influenza, split (incl. purified surface antigen) 0 completed [facility] 04/17/2023 12:02:00 Hep A, adult 1 completed [facility] 10/10/2024 08:38:58 Hep A, adult 9 completed FELISHA DESIR null, [facility] 10/10/2024 08:38:58 Influenza, split virus, quadrivalent, PF 1 completed FELISHA DESIR null, [facility] 10/10/2024 08:38:58 Influenza, split virus, quadrivalent, PF 9 completed FELISHA DESIR null, [facility] 10/10/2024 08:38:58 Influenza, MDCK, trivalent, PF 4 completed FELISHA DESIR null, [facility] 10/10/2024 08:38:58 Influenza, MDCK, quadrivalent, preservative 3 completed FELISHA hamilton, [facility] 10/10/2024 08:38:58 pneumococcal polysaccharide PPV23 8 completed Lola hamilton, [facility] 07/02/2024 08:41:52 Influenza, split virus, quadrivalent, PF 8 completed Lola Vidal null, [facility] 07/02/2024 08:41:52 zoster recombinant 3 completed Lola Vidal null, [facility] 07/02/2024 14:52:40 COVID-19, mRNA, LNP-S, PF, 50 mcg/0.5 mL 4 completed FELISHA hamilton, [facility] 10/10/2024 08:38:58 Influenza, MDCK, trivalent, preservative 4 completed FELISHA DESIR null, [facility] 10/10/2024 08:38:58 Influenza, high-dose, trivalent, PF 5 completed Not Available [facility] 10/13/2025 09:55:50 Past Encounters Encounter ID Performer Location Encounter Start Date Encounter Closed Date Diagnosis/Indication Diagnosis SNOMED-CT Code Diagnosis ICD10 Code Diagnosis IMO Codes Diagnosis Note [id number] Lyn Marmolejo MD [facility] [address] [place] [phone] 08/17/2025 13:17:17 08/18/2025 09:51:22 History of mechanical prosthetic mitral valve replacement 933988810 Z95.2 Mean corpu scular volume above reference range 496583964 R71.8 941630 Hypercalcemia 14368382 E 83.52 9955 Drug therapy finding 309 608797 Z79.899 [id number] Generalize d anxiety disorder 99845733 F41.1 [id number] Lyn Marmolejo MD [facility] ([facility] [address] [place] [phone] 5 09/02/2025 13:16:47 09/03/2025 10:16:00 History of mechanical prosthetic mitral valve replacement [id number] Z95.2 [id number] Lyn Marmolejo MD [facility] ([facility] [address] [place] [phone] 5 09/09/2025 09:58:14 09/10/2025 09:52:18 Benign essential hypertension 0147492 I10 [id number] Lyn Marmolejo MD [facility] ([facility] [address] [place] [phone] 5 09/17/2025 13:22:57 09/18/2025 10:36:49 Atrial fibrillation 80525478 I48.91 warfarin therapyd/c naproxen d/t hx of bleeding Health Concerns Section Related Observation LastModified by Organization Detai ls LastModified Time None Recorded Concern Status LastModified by Organization Details LastModified Time None Recorded Payers Encounter Date Sequence Insurance Name Policy Number Policy Hernandez Covered Member ID Hernandez Member ID Guarantor Name 09/17/2025 1 [place]ANT[place] - [place]PO) [id number] Odilia Ulloa [id number] Odilia Ulloa 09/17/2025 2 [place] Odilia Ulloa [id number] Odilia Ulloa OBGyn Episode No OBEpisode recorded.
--- OUTSIDE RECORDS SUMMARY | 2025-10-14 20:08 | XMS_ITS | Encounter Summary ---
Author Organization [facility] Address [address] [place] [address] Care Team Providers Care Line Producer Name Role Phone Rico Muñiz MD, Sharan Jaime Primary Care Provider Encounter Details Date Type Department Care Team (Latest Contact Info) Description 01/04/2001 Outpatient Historical 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
--- OUTSIDE RECORDS SUMMARY | 2025-10-14 20:08 | XMS_ITS | Encounter Summary ---
Author Organization [facility] Address [address] [place] [address] Care Team Providers Care Design Technology Teacher Name Role Phone Rico Muñiz MD, Sharan Jaime Primary Care Provider Encounter Details Date Type Department Care Team (Latest Contact Info) Description 05/24/2000 Outpatient Historical [facility] Sharan Gómez Jr., MD [address] [place] [address] Unspecified essential hypertension (Primary Dx); Osteoporosis, unspecified Social History Tobacco Use Types Packs/Day Years Used Date Smoking Tobacco: Never Assessed Comments Unknown Sex and Gender Information Value Date Recorded Sex Assigned at Not on file 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
--- OUTSIDE RECORDS SUMMARY | 2025-10-14 20:08 | XMS_ITS | Continuity of Care Document ---
Author Organization [facility] Luis M, LArie, [facility] Address [address] [place] [address] Care Team Providers Care Time Clock Mechanic Name Role Phone LYN MARMOLEJO Primary Care Provider [phone] Assessment No assessment recorded. Plan of Treatment Reminders Order Date Submit Date Provider Last Modified By Organization Details Last Modified Time Details Appointments None recorded . Lab BMP, serum or plasma - llv order 025 10/08/20 [facility], [address], [place], [address], 17:19:52 Referral None recorded . Procedures None recorded . Surgeries None recorded . Imaging None recorded . Medication Orders None recorded . Patient TargetsNo targets recorded. Patient InstructionsNo instructions recorded. Reason for Referral None Reported. Results Created Date Observation Date Name Description Value Unit Range Abnormal Flag Note LastModifiedBy Organization Detail LastModifiedTime 09/09/2009/09/2025 CMP (FEMA LE) glucose 93.0 mg/dL 60.0-9 9.0 Not Available [facility] [address], [place], [address], 09/09/2025 10:43:31 09/09/2009/09/2025 CMP (FEMA LE) BUN (blood urea nitrogen) 20.0 mg/dL 10.0-2 6.0 Not Available [facility] [address], [place], [address], 09/09/2025 10:43:31 09/09/20 25 09/09/2025 CMP (FEMA LE) creatinine (serum) 0.9 mg/dL 0.4-1. 5 Not Available [facility] [address] [facility] [place], [address], 09/09/2025 10:43:31 09/09/20 25 09/09/2025 CMP (FEMA LE) BUN/creatini ne ratio 22.22 ratio Not Available [facility] [address] [facility] [address], [place], [address], 09/09/2025 10:43:31 09/09/20 25 09/09/2025 CMP (FEMA LE) eGFR calculated 64.9 Not Available [facility] [address] [facility] [address], [place], [address], 09/09/2025 10:43:31 09/09/20 25 09/09/2025 CMP (FEMA LE) total protein 7.5 g/dL 6.0-8. 5 Not Available [facility] [address] [facility] [address], [place], [address], 09/09/2025 10:43:31 09/09/20 25 09/09/2025 CMP (FEMA LE) total bilirubin 1.1 mg/dL 0.2-1. 3 Not Available [facility] [address] [facility] [address], [place], [address], 09/09/2025 10:43:31 09/09/20 25 09/09/2025 CMP (FEMA LE) albumin 5.0 g/dL 3.5-5. 5 Not Available [facility] [address] [facility] [place], [address], 09/09/2025 10:43:31 09/09/20 25 09/09/2025 CMP (FEMA LE) globulin 2.5 calc Not Available [facility] [address] [facility] [address] [facility], [place], [address], 09/09/2025 10:43:31 09/09/20 25 09/09/2025 CMP (FEMA LE) AST (SGOT) 35.0 U/L 0.0-46 .0 Not Available [facility] [address] [facility] [address] [facility], [place], [address], 09/09/2025 10:43:31 09/09/20 25 09/09/2025 CMP (FEMA LE) altv (SGPT) 17.0 U/L 13.0-6 9.0 normal Not Available [facility] [address] [facility] [address] [facility], [place], [address], 09/09/2025 10:43:31 09/09/20 25 09/09/2025 CMP (FEMA LE) A/G ratio 2.0 ratio Not Available [facility] [address] [place] [facility], [place], [address], 09/09/2025 10:43:31 09/09/20 25 09/09/2025 CMP (FEMA LE) ALP phos 77.0 U/L 30.0-1 40.0 normal Not Available [facility] [address] [place] [facility], [place], [address], 09/09/2025 10:43:31 09/09/20 25 09/09/2025 CMP (FEMA LE) calcium 10.4 mg/dL 8.4-10 .5 Not Available [facility] [address] [facility] [address] [facility], [place], [address], 09/09/2025 10:43:31 09/09/20 25 09/09/2025 CMP (FEMA LE) sodium 139.0 mmol/ L 136.0- 145.0 Not Available [facility] [address] [facility] 1, [place], [address], 09/09/2025 10:43:31 09/09/20 25 09/09/2025 CMP (FEMA LE) potassium 4.2 mmol/ L 3.5-5. 1 Not Available [facility] [address] [facility] [address], [place], [address], 09/09/2025 10:43:31 09/09/20 25 09/09/2025 CMP (FEMA LE) chloride 105.0 mmol/ L 98.0-1 10.0 normal Not Available [facility] [address] [facility] [address], [place], [address], 09/09/2025 10:43:31 09/09/20 25 09/09/2025 CMP (FEMA LE) C02 28.0 mmol/ L 22.0-3 1.0 Not Available [facility] [address] [address], [place], [address], 09/09/2025 10:43:31 09/09/20 25 09/09/2025 CMP (FEMA LE) anion gap 6.0 calc Not Available [facility] [address] [facility] [address], [place], [address], 09/09/2025 10:43:31 09/09/20 25 09/09/2025 CMP (FEMA LE) osmolality 289.3 calc Not Available [facility] [address] [address], [place], [address], 09/09/2025 10:43:31 09/17/20 25 09/17/2025 PT/IN R Protime 27.5 Not Available [facility] [address] [place], [address], 09/17/2025 13:23:29 09/17/20 25 09/17/2025 PT/IN R INR 2.3 Not Available [facility] ([facility]) [address] [place], [address], 09/17/2025 13:23:29 10/08/20 25 10/08/2025 BMP (FEMA LE) glucose 95.0 mg/dL 60.0-9 9.0 Not Available [facility] [address] [facility] [address], [place], [address], 10/08/2025 17:19:52 10/08/20 25 10/08/2025 BMP (FEMA LE) BUN (blood urea nitrogen) 22.0 mg/dL 10.0-2 6.0 Not Available [facility] [address] [facility] [address], [place], [address], 10/08/2025 17:19:52 10/08/20 25 10/08/2025 BMP (FEMA LE) creatinine (serum) 1.0 mg/dL 0.4-1. 5 Not Available [facility] [address] [facility] [address], [place], [address], 10/08/2025 17:19:52 10/08/20 25 10/08/2025 BMP (FEMA LE) BUN/creatini ne ratio 22.00 ratio Not Available [facility] [address] [facility] [address], [place], [address], 10/08/2025 17:19:52 10/08/20 25 10/08/2025 BMP (FEMA LE) calcium 10.8 mg/dL 8.4-10 .5 high Not Available [facility] [address] [facility] [address], [place], [address], 10/08/2025 17:19:52 10/08/20 25 10/08/2025 BMP (FEMA LE) sodium 140.0 mmol/ L 136.0- 145.0 Not Available [facility] [address], [place], [address], 10/08/2025 17:19:52 10/08/20 25 10/08/2025 BMP (FEMA LE) potassium 4.4 mmol/ L 3.5-5. 1 Not Available [facility] [address] [place] [facility], [place], [address], 10/08/2025 17:19:52 10/08/20 25 10/08/2025 BMP (FEMA LE) chloride 101.0 mmol/ L 98.0-1 10.0 normal Not Available [facility] [address] [facility], [place], [address], 10/08/2025 17:19:52 10/08/20 25 10/08/2025 BMP (FEMA LE) C02 29.0 mmol/ L 22.0-3 1.0 Not Available [facility] [address] [facility], [place], [address], 10/08/2025 17:19:52 10/08/2010/08/2025 BMP (FEMA LE) anion gap 10.0 calc Not Available [facility] [address] [place] [facility], [place], [address], 10/08/2025 17:19:52 09/09/20 25 09/08/2025 US, [facility] ardio gram, trans thora cic, compl ete, w/ color flow No observ ation record ed. QUENTIN [facility] [address] [place], [address], 09/11/2025 09:19:21 09/15/2009/15/2025 MAMMO , scree ilya, digit al, bilat eral No observ ation record ed. [email or web address] [facility] [address] [facility], [place], [address], 09/16/2025 16:09:54 Result Notes None recorded. Problems Name Problem SNOMED Code Status Onset Date Resolution Date Notes Provider Name and Address Organization Details Recorded Time Depressi ve disorder 21057694 Completed 202010/14/2021 Depressi on - Status is Inactive ; 10/14/20 11:08AM by Maryellen Marmolejo PA-C, Annotati on/Adden dum; Promoted ; acuity set as *; FELISHA hamilton, [facility] 5 07:56:57 Herpes zoster 6933585 Completed 202201/02/2025 SHINGLES FELISHA hamilton [facility] 5 07:56:03 Dysthymi a 83718234 Active 2022 DEPRESSI ON WITH ANXIETY FELISHA hamilton [facility] 5 07:55:28 Benign essentia l hyperten jovanni 2133706 Active 2022 FELISHA hamilton [facility] 5 07:55:28 Gastroes ophageal reflux disease 687369134 Active 2022 FELISHA hamilton [facility] 5 07:55:28 Fracture of upper end of humerus 775329611 Completed 202201/02/2025 CLOSED FRACTURE OF PROXIMAL END OF RIGHT HUMERUS, SEQUELA FELISHA hamilton, [facility] 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 5 07:56:22 Atrial fibrilla tion 72359519 Active 2022 FELISHA hamilton [facility] 3 14:45:05 Coronary atherosc lerosis 563179934 Active 2022 bare metal stents to circ and LAD 2011 FELISHA hamilton, [facility] 3 14:46:30 Iron deficien cy anemia 31069095 Active 2022 FELISHA DESIR null, [facility] 5 07:55:28 Hypothyr oidism 47682124 Active 2022 FELISHA DESIR null, [facility] 3 14:45:59 Anxiety 65261085 Active 2022 FELISHA DESIR null, [facility] 3 14:46:54 Viral hepatiti s C 48591962 Active 2022 FELISHA hamilton, [facility] 5 07:55:28 Moderate recurren t major depressi on 92902652 Active 2023 FELISHA hamilton, [facility] 5 07:55:28 Need for personal care assistan ce [id number] 452295 Active 2023 FELISHA hamilton, [facility] 5 07:55:28 Frail elderly 070353866 Active 2023 FELISHA DESIR null, [facility] 5 07:55:28 Seasonal allergic rhinitis 001877622 Active 2023 FELISHA hamilton, [facility] 5 07:55:28 Chronic pain 23334879 Active 2023 FELISHA hamilton, [facility] 5 07:55:28 Dementia 51015957 Active 2023 FELISHA hamilton, [facility] 5 07:55:28 Constipa tion 33744682 Active 2023 [facility] 07:55:44 Hyperlip idemia 43376532 Active 2024 [facility] 5 07:59:38 Occult blood detected in feces 82257169 Active 2024 [facility] 5 09:13:35 Mean corpuscu lar volume above referenc e range 204119633 Active 2024 FELISHA KARLEE alfonso [facility] 5 09:14:07 Hypercal cemia 68133720 Active [address] [facility] 5 10:07:49 Vitamin D deficien cy 82027597 Active 2024 Lyn Marmolejo MD [address] [place] [address], [phone], [facility] 5 12:54:55 Hyperpar athyroid ism 12076774 Active 2024 Lyn Marmolejo MD [address] [place] [phone], [facility] 5 12:54:56 Dysuria 68444133 Active [address] [facility] 5 14:08:08 Problem Notes None recorded. Procedures Surgical History Date Name Laterality Status Provider Name and Address Organization Details Recorded Time 2024 Most Recent Mammogram completed FELISHA KARLEE [facility] 5 16:09:39 2024 esophagogastroduodenoscopy completed YANELIS WELSH [facility] 5 12:23:16 2024 colonoscopy completed FELISHA [facility] 5 10:20:11 2023 esophagogastroduodenoscopy completed JESSIKAPRESTON ILYA DONITA [facility] 4 12:40:14 2023 colonoscopy completed Lyn Marmolejo MD [address] [place] [address], [phone], [facility] 5 10:19:30 cholecystectomy completed [facility] 3 14:48:40 replacement of mitral valve complete d FELISHA [facility] 3 14:49:22 section completed [facility] 3 15:14:43 Imaging Results None recorded. Procedure Notes None recorded. Medical Equipment None Reported. Allergies Allergen ID Allergen Name Allergen Category Reaction Reaction Severity Criticality Documentation Date Start Date Code Code System Note Provider Name and Address Organization Details Recorded Time 1376 morphine medicatio n Not available Not available Not available 02/07/20[address] [facility] 3 10:45:47 1377 diltiazem Not available Not available Not available Not available 02/07/[address] [facility] 3 10:45:54 4552 Bactrim medicatio n other severe high 04/17/2023 38788 9 RxNorm do not give d/t couma din Lola Vidal null, [facility] 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 3 12:26:44 91554 morphine sulfate medicatio n Not available Not available Not available 05/26/2023 22339 RxNorm Comme nt: Recor ded 12/29 7:56A M by Yanelis Kitchen on, FEED MILL SUPERVISOR, 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 ; Promo talib; Signi ficdeborah ce: *; Reaso n: Drug aller gy; ; FELISHA hamilton, [facility] 3 12:26:48 Medications Name Sig [...] THSC Levothyro xine Sodium daily 06/08 completed 35290; Recorded 01/09/20 6:06PM by Shirley Quevedo (Authori [...] Tobacco Smoking Status Former Smoker FELISHA DESIR [facility] 04/17/2023 14:48:01 What Was The Date Of Your Most Recent Tobacco Screening? 05/27/2025 [email or web address] Information not available 05/27/2025 Sex: Unknown Functional Status Question Answer Note LastModified by Organizat ion Details LastModified Time Do you use any illicit or recreational drugs? No [email or web address] Information not available 04/17/2023 Do you or have you ever used any other forms of tobacco or nicotine? No [email or web address] Information not available 06/29/2023 What is your level of alcohol consumption? None [email or web address] Information not available 04/17/2023 Mental Status None recorded. Family History Relationship Description Onset Age of this Age Resolved Age Notes LastModified by Organization Details LastModified Time Unspecified Relation Coronary atherosclero sis [email or web address] Not available 06/29 15:13:48 Medical History No medical history recorded. Gynecological History Statement/Question Response Most Recent Mammogram 09/15/2025 Obstetrics History GPAL:G 0 P 0 0 0 0 Immunizations Vaccine Type Date Status Note Provider Nam e and Address Organization Details Recorded Time Influenza, MDCK, quadrivalent, PF 2 completed FELISHA hamilton [facility] [...] [facility] 10/10/2024 08:38:58 Pneumococcal conjugate PCV20, polysaccharide OPE632 conjugate, adjuvant, PF 3 completed FELISHA hamilton, [facility] 10/10/2024 08:38:58 COVID-19, mRNA, LNP-S, bivalent, PF, 50 mcg/0.5 mL or 25mcg/0.25 mL dose 3 completed FELISHA hamilton, [facility] 10/10/2024 08:38:58 pneumococcal polysaccharide PPV23 3 completed FELISHA hamilton, [facility] 04/17/2023 12:02:00 Tdap 1 completed FELISHA hamilton, [facility] 10/10/2024 08:38:58 Influenza, split virus, trivalent, PF 3 completed FELISHA hamilton, [facility] 04/17/2023 12:02:00 influenza, split (incl. purified surface antigen) 0 completed FELISHA hamilton, [facility] 04/17/2023 12:02:00 Hep A, adult 1 completed FELISHA hamilton, [facility] 10/10/2024 08:38:58 Hep A, adult 9 completed FELISHA DESIR null, [facility] 10/10/2024 08:38:58 Influenza, split virus, quadrivalent, PF 1 completed FELISHA hamilton, [facility] 10/10/2024 08:38:58 Influenza, split virus, quadrivalent, PF 9 completed FELISHA DESIR null, [facility] 10/10/2024 08:38:58 Influenza, MDCK, trivalent, PF 4 completed FELISHA DESIR null, [facility] 10/10/2024 08:38:58 Influenza, MDCK, quadrivalent, preservative 3 completed FELISHA DESIR null, [facility] 10/10/2024 08:38:58 pneumococcal polysaccharide PPV23 8 completed Lola hamilton, [facility] 07/02/2024 08:41:52 Influenza, split virus, quadrivalent, PF 8 completed Lola Vidal null, [facility] 07/02/2024 08:41:52 zoster recombinant 3 completed Lola hamilton, [facility] 07/02/2024 14:52:40 COVID-19, mRNA, LNP-S, PF, 50 mcg/0.5 mL 4 completed FELISHA DESIR null, [facility] 10/10/2024 08:38:58 Influenza, MDCK, trivalent, preservative 4 completed FELISHA DESIR null, [facility] 10/10/2024 08:38:58 Influenza, high-dose, trivalent, PF 5 completed Not Available [facility] 10/13/2025 09:55:50 Past Encounters Encounter ID Performer Location Encounter Start Date Encounter Closed Date Diagnosis/Indication Diagnosis SNOMED-CT Code Diagnosis ICD10 Code Diagnosis IMO Codes Diagnosis Note [id number] Lyn Marmolejo MD [facility] [address] [place] [phone] 09/09/2025 09:58:14 09/10/2025 09:52:18 Benign essential hypertension 0913318 I10 [id number] Lyn Marmolejo MD [facility] ([facility]) [address] [place] [phone] 09/17/2025 13:22:57 09/18/2025 10:36:49 Atrial fibrillation 27137880 I48.91 warfarin therapyd/c naproxen d/t hx of bleeding [id number] Lyn Marmolejo MD [facility] ([facility]) [address] [place] [address] 10/02/2025 07:57:06 10/07/2025 10:51:15 Benign essential hypertension 9919250 I10 Coronary atherosclerosis 058985190 I25.119 Atrial fibrillation 4943 6004 I48.91 Hyperlipidemia 66681128 E78.00 Hypothyroidism 91509061 E03.9 Hyperparathyroidism 6699 9008 E21.3 [id number] Lyn Marmolejo MD [facility] ([facility]) [address] [place] [address] 10/08/2025 15:40:56 10/09/2025 09:52:26 Benign essential hypertension 5730188 I10 Health Concerns Section Related Observation LastModified by Organization Detai ls LastModified Time None Recorded Concern Status LastModified by Organization Details LastModified Time None Recorded Payers Encounter Date Sequence Insurance Name Policy Number Policy Hernandez Covered Member ID Hernandez Member ID Guarantor Name 10/08/2025 1 [place] - [place]) [id number] Odilia Ulloa [id number] Odilia Ulloa 10/08/2025 2 [place] Odilia Ulloa [id number] Odilia Ulloa OBGyn Episode No OBEpisode recorded.
--- OUTSIDE RECORDS SUMMARY | 2025-10-14 20:08 | XMS_ITS | Encounter Summary ---
Author Organization [facility] Address [address] [place] [address] Care Team Providers Care Mold Worker Name Role Phone Rico Muñiz MD, Sharan Jaime Primary Care Provider Encounter Details Date Type Department Care Team (Latest Contact Info) Description 06/21/2000 Outpatient Historical [facility] Int Luis AFaisla Lopez [place] [place] [phone] Serge Arrington MD [address] [place] [address] Mitral valve disorder (Primary Dx); Unspecified essential hypertension; Unspecified gastritis and gastroduodenitis without mention of hemorrhage Social History Tobacco Use Types Packs/Day Years Used Date Smoking Tobacco: Never Assessed Comments Unknown Sex and Gender Information Value Date Recorded Sex Assigned at Not on file 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
--- OUTSIDE RECORDS SUMMARY | 2025-10-14 20:08 | XMS_ITS | Encounter Summary ---
Author Organization [facility] Address [address] [place] [address] Care Team Providers Care Box Car Checker Name Role Phone Rico Muñiz MD, Sharan Jaime Primary Care Provider Encounter Details Date Type Department Care Team (Latest Contact Info) Description 01/25/2000 Outpatient Historical [facility] Sharan Gómez Jr., MD [address] [place] [address] Obesity, unspecified (Primary Dx); Heart valve replaced by other means; Unspecified essential hypertension; custodial (current) use of anticoagulants Social History Tobacco Use Types Packs/Day Years Used Date Smoking Tobacco: Never Assessed Comments Unknown Sex and Gender Information Value Date Recorded Sex Assigned at Not on file 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
--- OUTSIDE RECORDS SUMMARY | 2025-10-14 20:08 | XMS_ITS | Encounter Summary ---
Author Organization [facility] Address [address] [place] [address] Care Team Providers Care Gauge And Weigh Machine Operator Name Role Phone Rico Muñiz MD, Sharan Jaime Primary Care Provider Encounter Details Date Type Department Care Team (Latest Contact Info) Description 04/06/2000 Outpatient Historical [facility] Sharan Gómez Jr., MD [address] [place] [address] Symptomatic menopausal or female climacteric states (Primary Dx); Endocarditis, valve unspecified, unspecified cause; alf (current) use of anticoagulants Social History Tobacco Use Types Packs/Day Years Used Date Smoking Tobacco: Never Assessed Comments Unknown Sex and Gender Information Value Date Recorded Sex Assigned at Not on file 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
--- OUTSIDE RECORDS SUMMARY | 2025-10-14 20:08 | XMS_ITS | Encounter Summary ---
Author Organization [facility] Address [address] [place] [address] Care Team Providers Care Maintenance Shop Technician Name Role Phone Rico Muñiz MD, Sharan Jaime Primary Care Provider Encounter Details Date Type Department Care Team (Latest Contact Info) Description 06/20/1999 Outpatient Historical [facility] Echocardiography - National [address] [place] [address] X358 Serge Arrington MD [address] [address] Painful respiration (Primary Dx); Precordial pain; Other dyspnea and respiratory abnormality Social History Tobacco Use Types Packs/Day Years Used Date Smoking Tobacco: Never Assessed Comments Unknown Sex and Gender Information Value Date Recorded Sex Assigned at Not on file 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
--- OUTSIDE RECORDS SUMMARY | 2025-10-14 20:08 | XMS_ITS | Encounter Summary ---
Author Organization [facility] Address [address] [place] [address] Care Team Providers Care Hybrid Corn Breeder Name Role Phone Rico Muñiz MD, Sharan Jaime Primary Care Provider Encounter Details Date Type Department Care Team (Latest Contact Info) Description 04/01/1999 Outpatient Historical [facility] Sharan Gómez Jr., MD [address] [place] [address] Type II or unspecified type diabetes mellitus without mention of complication, not stated as uncontrolled (Primary Dx); Dietary surveil/counseling case manager Social History Tobacco Use Types Packs/Day Years Used Date Smoking Tobacco: Never Assessed Comments Unknown Sex and Gender Information Value Date Recorded Sex Assigned at Not on file 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 Gender Identity Not on file Sexual Orientation Not on file documented as of this encounter Plan of Treatment Not on file documented as of this encounter Visit Diagnoses Diagnosis Type II or unspecified type diabetes mellitus without mention of complication, not stated as uncontrolled- Primary Dietary surveil/counseling case manager Dietary surveillance and counseling documented in this encounter Care Teams Hybrid Corn Breeder Relationship Specialty Start Date End Date Sharan Gómez Jr., MD [address] [place] [phone] PCP - General 08/10/05 documented as of this encounter
--- OUTSIDE RECORDS SUMMARY | 2025-10-14 20:08 | XMS_ITS | Encounter Summary ---
Author Organization [facility] Address [address] [facility] Attn: [place] [address] Care Team Providers Care Cosmetic Assembler Name Role Phone Rico Muñiz MD, Sharan Jaime Primary Care Provider Encounter Details Date Type Department Care Team (Late st Contact Info) Description 12/26/1999 Outpatient Historical Sharan Gómez Jr., MD [address] [place] [address] Social History Tobacco Use Types Packs/Day Years Used Date Smoking Tobacco: Never Assessed Comments Unknown Sex and Gender Information Value Date Recorded Sex Assigned at Not on file 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
--- OUTSIDE RECORDS SUMMARY | 2025-10-14 20:08 | XMS_ITS | Encounter Summary ---
Author Organization [facility] Address [address] [place] [address] Care Team Providers Care Technical Information Specialist Name Role Phone Rico Muñiz MD, Sharan Jaime Primary Care Provider Encounter Details Date Type Department Care Team (Latest Contact Info) Description 04/12/2001 Outpatient Historical [facility] Sharan Gómez Jr., MD [address] [place] [address] Osteoarthrosis, unspecified whether generalized or localized, unspecified site (Primary Dx); Heart valve replaced by other means; terminal manager (current) use of anticoagulants Social History Tobacco Use Types Packs/Day Years Used Date Smoking Tobacco: Never Assessed Comments Unknown Sex and Gender Information Value Date Recorded Sex Assigned at Not on file Legal Sex Female 5:42 AM WIRER Gender Identity Not on file Sexual Orientation Not on file documented as of this encounter Plan of Treatment Not on file documented as of this encounter Visit Diagnoses Diagnosis Osteoarthrosis, unspecified whether generalized or localized, unspecified site- Primary Heart valve replaced by other means residential (current) use of anticoagulants Long-term (current) use of anticoagulants documented in this encounter Care Teams Technical Information Specialist Relationship Specialty Start Date End Date Sharan Gómez Jr., MD [address] [place] [address] PCP - General 08/10/05 documented as of this encounter
--- OUTSIDE RECORDS SUMMARY | 2025-10-14 20:08 | XMS_ITS | Encounter Summary ---
Author Organization [facility] Address [address] [place] [address] Care Team Providers Care Home Lighting Adviser Name Role Phone Rico Muñiz MD, Sharan Jaime Primary Care Provider Encounter Details Date Type Department Care Team (Latest Contact Info) Description 01/30/2001 Outpatient Historical [facility] Sharan Gómez Jr., MD [address] [place] [address] Endocarditis, valve unspecified, unspecified cause (Primary Dx); Acute sinusitis, unspecified; Bronchitis, not specified as acute or chronic Social History Tobacco Use Types Packs/Day Years Used Date Smoking Tobacco: Never Assessed Comments Unknown Sex and Gender Information Value Date Recorded Sex Assigned at Not on file Legal Sex Female 5:42 AM SADDLE STITCH OPERATOR Gender Identity Not on file Sexual Orientation Not on file documented as of this encounter Plan of Treatment Not on file documented as of this encounter Visit Diagnoses Diagnosis Endocarditis, valve unspecified, unspecified cause- Primary Acute sinusitis, unspecified Bronchitis, not specified as acute or chronic documented in this encounter Care Teams Home Lighting Adviser Relationship Specialty Start Date End Date Sharan Gómez Jr., MD [address] [place] [address] PCP - General 08/10/05 documented as of this encounter
--- OUTSIDE RECORDS SUMMARY | 2025-10-14 20:08 | XMS_ITS | Encounter Summary ---
Author Organization [facility] Address [address] [place] [address] Care Team Providers Care Muck Boss Name Role Phone Rico Muñiz MD, Sharan Jaime Primary Care Provider Encounter Details Date Type Department Care Team (Latest Contact Info) Description 12/31/2000 Outpatient Historical [facility] Medicine [place] [address] [facility] [address] [place] [phone] Larry Olvera MD Screening for malignant neoplasm of the rectum (Primary Dx) Social History Tobacco Use Types Packs/Day Years Used Date Smoking Tobacco: Never Assessed Comments Unknown Sex and Gender Information Value Date Recorded Sex Assigned at Not on file Legal Sex Female 5:42 AM FIELD ORGANIZER Gender Identity Not on file Sexual Orientation Not on file documented as of this encounter Plan of Treatment Not on file documented as of this encounter Visit Diagnoses Diagnosis Screening for malignant neoplasm of the rectum- Primary documented in this encounter Care Teams Muck Boss Relationship Specialty Start Date End Date Sharan Gómez Jr., MD [address] [place] [phone] PCP - General 08/10/05 documented as of this encounter
--- OUTSIDE RECORDS SUMMARY | 2025-10-14 20:08 | XMS_ITS | Encounter Summary ---
Author Organization [facility] Address [address] [facility] Attn: [place] [address] Care Team Providers Care Speech Pathologist Name Role Phone Rico Muñiz MD, Sharan Jaime Primary Care Provider Encounter Details Date Type Department Care Team (Late st Contact Info) Description 01/04/2001 Outpatient Historical Sharan Gómez Jr., MD [address] [place] [address] Social History Tobacco Use Types Packs/Day Years Used Date Smoking Tobacco: Never Assessed Comments Unknown Sex and Gender Information Value Date Recorded Sex Assigned at Not on file Legal Sex Female 5:42 AM MANAGER EVENT Gender Identity Not on file Sexual Orientation Not on file documented as of this encounter Plan of Treatment Not on file documented as of this encounter Visit Diagnoses Not on filedocumented in this encounter Care Teams Speech Pathologist Relationship Specialty Start Date End Date Sharan Gómez Jr., MD [address] [place] [address] PCP - General 08/10/05 documented as of this encounter
--- OUTSIDE RECORDS SUMMARY | 2025-10-14 20:08 | XMS_ITS | Encounter Summary ---
Author Organization [facility] Address [address] [facility] Attn: [place] [address] Care Team Providers Care Economic Geographer Name Role Phone Rico Muñiz MD, Sharan Jaime Primary Care Provider Encounter Details Date Type Department Care Team (Late st Contact Info) Description 05/24/2000 Outpatient Historical Sharan Gómez Jr., MD [address] [place] [address] Social History Tobacco Use Types Packs/Day Years Used Date Smoking Tobacco: Never Assessed Comments Unknown Sex and Gender Information Value Date Recorded Sex Assigned at Not on file Legal Sex Female 5:42 AM VOCATIONAL REHABILITATION ADMINISTRATOR Gender Identity Not on file Sexual Orientation Not on file documented as of this encounter Plan of Treatment Not on file documented as of this encounter Visit Diagnoses Not on filedocumented in this encounter Care Teams Economic Geographer Relationship Specialty Start Date End Date Sharan Gómez Jr., MD [address] [place] [address] PCP - General 08/10/05 documented as of this encounter
--- OUTSIDE RECORDS SUMMARY | 2025-10-14 20:08 | XMS_ITS | Encounter Summary ---
Author Organization [facility] Address [address] [place] [address] Care Team Providers Care Kindergarten Assistant Name Role Phone Rico Muñiz MD, Sharan Jaime Primary Care Provider Encounter Details Date Type Department Care Team (Latest Contact Info) Description 07/18/1999 Outpatient Historical [facility] Sharan Gómez Jr., MD [address] [place] [address] Skin sensation disturb (Primary Dx); Headache(784.0); senior care (current) use of anticoagulants Social History Tobacco Use Types Packs/Day Years Used Date Smoking Tobacco: Never Assessed Comments Unknown Sex and Gender Information Value Date Recorded Sex Assigned at Not on file Legal Sex Female 5:42 AM BLEACH PLANT OPERATOR Gender Identity Not on file Sexual Orientation Not on file documented as of this encounter Plan of Treatment Not on file documented as of this encounter Visit Diagnoses Diagnosis Skin sensation disturb- Primary Disturbance of skin sensation Headache(784.0) Headache intermediate accountant (current) use of anticoagulants Long-term (current) use of anticoagulants documented in this encounter Care Teams Kindergarten Assistant Relationship Specialty Start Date End Date Sharan Gómez Jr., MD [address] [place] [address] PCP - General 08/10/05 documented as of this encounter
--- OUTSIDE RECORDS SUMMARY | 2025-10-14 20:08 | XMS_ITS | Encounter Summary ---
Author Organization [facility] Address [address] [place] [address] Care Team Providers Care Insurance Loss Assessor Name Role Phone Rico Muñiz MD, Sharan Jaime Primary Care Provider Encounter Details Date Type Department Care Team (Late st Contact Info) Description 07/26/1999 Outpatient Historical [facility] Cardiology- [place] [address] [place] [phone] [place] [address] [place], [place] [address] Pain in limb (Primary Dx); Heart valve replaced by other means Social History Tobacco Use Types Packs/Day Years Used Date Smoking Tobacco: Never Assessed Comments Unknown Sex and Gender Information Value Date Recorded Sex Assigned at Not on file Legal Sex Female 5:42 AM EXPORT DOCUMENTS CLERK Gender Identity Not on file Sexual Orientation Not on file documented as of this encounter Plan of Treatment Not on file documented as of this encounter Visit Diagnoses Diagnosis Pain in limb- Primary Pain in soft tissues of limb Heart valve replaced by other means documented in this encounter Care Teams Insurance Loss Assessor Relationship Specialty Start Date End Date Sharan Gómez Jr., MD [address] [place] [address] PCP - General 08/10/05 documented as of this encounter
--- OUTSIDE RECORDS SUMMARY | 2025-10-14 20:08 | XMS_ITS | Encounter Summary ---
Author Organization [facility] Address [address] [place] [address] Care Team Providers Care Electric Blanket Packer Name Role Phone Rico Muñiz MD, Sharan Jaime Primary Care Provider Encounter Details Date Type Department Care Team (Latest Contact Info) Description 08/10/2005 Outpatient Historical [facility] Endoscopy [place] [address] [place] [address] Bill Negron MD [address] [place] [address] INT HEMORRHOID W/O COMPL (Primary Dx) Social History Tobacco Use Types Packs/Day Years Used Date Smoking Tobacco: Never Assessed Comments Unknown Sex and Gender Information Value Date Recorded Sex Assigned at Not on file Legal Sex Female 5:42 AM CHEMISTRY TECHNOLOGIST Gender Identity Not on file Sexual [...] Primary documented in this encounter Care Teams Electric Blanket Packer Relationship Specialty Start Date End Date Sharan Gómez Jr., MD [address] [place] [address] PCP - General 08/10/05 documented as of this encounter
--- OUTSIDE RECORDS SUMMARY | 2025-10-14 20:08 | XMS_ITS | Encounter Summary ---
Author Organization [facility] Address [address] [place] [address] Care Team Providers Care Provider Relations Specialist Name Role Phone Rico Muñiz MD, Sharan Jaime Primary Care Provider Encounter Details Date Type Department Care Team (Late st Contact Info) Description 10/25/2020 Lab Requisition [facility] Laboratory Services [address] [place] [phone] Paulina Peterson MD [address] [place] [phone] Social History Tobacco Use Types Packs/Day Years Used Date Smoking Tobacco: Never Assessed Comments Unknown Sex and Gender Information Value Date Recorded Sex Assigned at Not on file Legal Sex Female 5:42 AM CRUSHER FEEDER Gender Identity Not on file Sexual Orientation Not on file documented as of this encounter Plan of Treatment Not on file documented as of this encounter Procedures Procedure Name Priority Date/Time Associated Diagnosis Comments PROTIME-INR Routine 10/25/2020 5:18 AM CRUSHER FEEDER documented in this encounter Results * (ABNORMAL) PROTIME-INR (10/25/2020 5:18 AM CRUSHER FEEDER) PROTIME 34.3(H) 11.9 - 15.5 Seconds 10/25/2020 7:01 PM CRUSHER FEEDER [facility]OR[facility] INR 3.3(H) 0.8 - 1.2 10/25/2020 7:01 PM CRUSHER FEEDER [facility] Blood Collection / Unknown 10/25/2020 5:18 AM CRUSHER FEEDER 10/25/2020 6:44 PM CRUSHER FEEDER Narrative [facility] - 10/25/2020 7:01 PM CRUSHER FEEDER Expected Values for INR: DVT/PE Goal [...] Peterson MD HEMATOLOGY ORDERABLES Maame l Result [facility] [address] [place] [address] documented in this encounter Visit Diagnoses Not on filedocumented in this encounter Care Teams Provider Relations Specialist Relationship Specialty Start Date End Date Sharan Gómez Jr., MD [address] [place] [address] PCP - General 08/10/05 documented as of this encounter
--- OUTSIDE RECORDS SUMMARY | 2025-10-14 20:08 | XMS_ITS | Encounter Summary ---
Author Organization [facility] Address [address] [place] [address] Care Team Providers Care Clin Application Specialist Name Role Phone Rico Muñiz MD, Sharan Jaime Primary Care Provider Encounter Details Date Type Department Care Team (Latest Contact Info) Description 06/20/1999 Outpatient Historical [facility] Int Luis AFaisal Lopez [place] [place] [phone] Serge Arrington MD [address] [place] [address] Mitral valve disorder (Primary Dx); Unspecified essential hypertension; Other and unspecified hyperlipidemia; Hematuria Social History Tobacco Use Types Packs/Day Years Used Date Smoking Tobacco: Never Assessed Comments Unknown Sex and Gender Information Value Date Recorded Sex Assigned at Not on file Legal Sex Female 5:42 AM QUALITY CONTROL LAB TECHNICIAN Gender Identity Not on file Sexual Orientation Not on file documented as of this encounter Plan of Treatment Not on file documented as of this encounter Visit Diagnoses Diagnosis Mitral valve disorder- Primary Mitral valve disorders Unspecified essential hypertension Other and unspecified hyperlipidemia Hematuria documented in this encounter Care Teams Clin Application Specialist Relationship Specialty Start Date End Date Sharan Gómez Jr., MD [address] [place] [phone] PCP - General 08/10/05 documented as of this encounter
--- OUTSIDE RECORDS SUMMARY | 2025-10-14 20:08 | XMS_ITS | Encounter Summary ---
Author Organization [facility] Address [address] [place] [address] Care Team Providers Care Fruit Inspector Name Role Phone Rico Muñiz MD, Sharan Jaime Primary Care Provider Encounter Details Date Type Department Care Team (Latest Contact Info) Description 05/18/1999 Outpatient Historical [facility] Sharan Gómez Jr., MD [address] [place] [address] Osteoarthrosis, unspecified whether generalized or localized, unspecified site (Primary Dx); longterm (current) use of anticoagulants; Heart valve replaced by other means Social History Tobacco Use Types Packs/Day Years Used Date Smoking Tobacco: Never Assessed Comments Unknown Sex and Gender Information Value Date Recorded Sex Assigned at Not on file Legal Sex Female 5:42 AM SALES COACH Gender Identity Not on file Sexual Orientation Not on file documented as of this encounter Plan of Treatment Not on file documented as of this encounter Visit Diagnoses Diagnosis Osteoarthrosis, unspecified whether generalized or localized, unspecified site- Primary longterm (current) use of anticoagulants Long-term (current) use of anticoagulants Heart valve replaced by other means documented in this encounter Care Teams Fruit Inspector Relationship Specialty Start Date End Date Sharan Gómez Jr., MD [address] [place] [address] PCP - General 08/10/05 documented as of this encounter
--- OUTSIDE RECORDS SUMMARY | 2025-10-14 20:08 | XMS_ITS | Encounter Summary ---
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 Social History Tobacco Use Types Packs/Day Years Used Date Smoking Tobacco: Never Assessed Comments Unknown Sex and Gender Information Value Date Recorded Sex Assigned at Not on file Legal Sex Female 5:42 AM WOODEN FENCE ERECTOR Gender Identity Not on file Sexual Orientation Not on file documented as of this encounter Plan of Treatment Not on file documented as of this encounter Visit Diagnoses Diagnosis ASCVD- Primary Unspecified cardiovascular disease Esophageal reflux Unspecified essential hypertension [facility] (current) use of anticoagulants Long-term (current) use of anticoagulants documented in this encounter Care Teams Enologist Relationship Specialty Start Date End Date Sharan Gómez Jr., MD [address] [place] [phone] PCP - General 08/10/05 documented as of this encounter
--- OUTSIDE RECORDS SUMMARY | 2025-10-14 20:08 | XMS_ITS | Encounter Summary ---
Author Organization [facility] Address [address] [place] [address] Care Team Providers Care Store Receiver Name Role Phone Rico Muñiz MD, Sharan Jaime Primary Care Provider Encounter Details Date Type Department Care Team (Latest Contact Info) Description 10/10/1999 Outpatient Historical [facility] Sharan Gómez Jr., MD [address] [place] [address] Unspecified circulatory system disorder (Primary Dx); Unspecified essential hypertension; residential (current) use of anticoagulants Social History Tobacco Use Types Packs/Day Years Used Date Smoking Tobacco: Never Assessed Comments Unknown Sex and Gender Information Value Date Recorded Sex Assigned at Not on file Legal Sex Female 5:42 AM MARKETING SUPPORT MANAGER Gender Identity Not on file Sexual Orientation Not on file documented as of this encounter Plan of Treatment Not on file documented as of this encounter Visit Diagnoses Diagnosis Unspecified circulatory system disorder- Primary Unspecified essential hypertension residential (current) use of anticoagulants Long-term (current) use of anticoagulants documented in this encounter Care Teams Store Receiver Relationship Specialty Start Date End Date Sharan Gómez Jr., MD [address] [place] [phone] PCP - General 08/10/05 documented as of this encounter
--- OUTSIDE RECORDS SUMMARY | 2025-10-14 20:08 | XMS_ITS | Encounter Summary ---
Author Organization [facility] Address [address] [place] [address] Care Team Providers Care Tufting Supervisor Name Role Phone Rico Muñiz MD, Sharan Jaime Primary Care Provider Encounter Details Date Type Department Care Team (Latest Contact Info) Description 02/15/2001 Outpatient Historical [facility] Sharan Gómez Jr., MD [address] [place] [address] Unspecified essential hypertension (Primary Dx); Heart valve replaced by other means Social History Tobacco Use Types Packs/Day Years Used Date Smoking Tobacco: Never Assessed Comments Unknown Sex and Gender Information Value Date Recorded Sex Assigned at Not on file Legal Sex Female 5:42 AM TOP LIFT AND AUTOMATIC WINDOW REPAIRER Gender Identity Not on file Sexual Orientation Not on file documented as of this encounter Plan of Treatment Not on file documented as of this encounter Visit Diagnoses Diagnosis Unspecified essential hypertension- Primary Heart valve replaced by other means documented in this encounter Care Teams Tufting Supervisor Relationship Specialty Start Date End Date Sharan Gómez Jr., MD [address] [place] [address] PCP - General 08/10/05 documented as of this encounter
--- OUTSIDE RECORDS SUMMARY | 2025-10-14 20:08 | XMS_ITS | Encounter Summary ---
Author Organization [facility] Address [address] [place] [address] Care Team Providers Care Ethylene Plant Operator Name Role Phone iRco Muñiz MD, Sharan Jaime Primary Care Provider Encounter Details Date Type Department Care Team (Latest Contact Info) Description 08/10/2005 Outpatient [facility] [place] [address] [facility] [address] [place] [address] Bill Negron MD [address] [place] [address] ABN FIND-STOOL CONTENTS-OCC BLOOD (Primary Dx); INT HEMORRHOID W/O COMPL; ANAL FISSURE Social History Tobacco Use Types Packs/Day Years Used Date Smoking Tobacco: Never Assessed Comments Unknown Sex and Gender Information Value Date Recorded Sex Assigned at Not on file Legal Sex Female 5:42 AM FOREIGN SERVICE OFFICER Gender Identity Not on file Sexual Orientation Not on file documented as of this encounter Plan of Treatment Not on file documented as of this encounter Visit Diagnoses Diagnosis Nonspecific abnormal finding in stool contents- Primary Internal hemorrhoids without mention of complication Anal fissure documented in this encounter Care Teams Ethylene Plant Operator Relationship Specialty Start Date End Date Sharan Gómez Jr., MD [address] [place] [phone] PCP - General 08/10/05 documented as of this encounter
--- OUTSIDE RECORDS SUMMARY | 2025-10-14 20:08 | XMS_ITS | Encounter Summary ---
Author Organization [facility] Address [address] [place] [address] Care Team Providers Care Early Childhood Specialist Name Role Phone Rico Muñiz MD, Sharan Jaime Primary Care Provider Encounter Details Date Type Department Care Team (Latest Contact Info) Description 11/25/1999 Outpatient Historical [facility] Sharan Gómez Jr., MD [address] [place] [address] Epistaxis (Primary Dx); [facility] (current) use of anticoagulants Social History Tobacco Use Types Packs/Day Years Used Date Smoking Tobacco: Never Assessed Comments Unknown Sex and Gender Information Value Date Recorded Sex Assigned at Not on file Legal Sex Female 5:42 AM UTILITY SPECIALIST Gender Identity Not on file Sexual Orientation Not on file documented as of this encounter Plan of Treatment Not on file documented as of this encounter Visit Diagnoses Diagnosis Epistaxis- Primary [facility] (current) use of anticoagulants Long-term (current) use of anticoagulants documented in this encounter Care Teams Early Childhood Specialist Relationship Specialty Start Date End Date Sharan Gómez Jr., MD [address] [place] [address] PCP - General 08/10/05 documented as of this encounter
--- OUTSIDE RECORDS SUMMARY | 2025-10-14 20:08 | XMS_ITS | Encounter Summary ---
Author Organization [facility] Address [address] [place] [address] Care Team Providers Care Concrete Layer Name Role Phone Rico Muñiz MD, Sharan Jaime Primary Care Provider Encounter Details Date Type Department Care Team (Latest Contact Info) Description 10/26/1999 Outpatient Historical [facility] Sharan Gómez Jr., MD [address] [place] [address] Endocarditis, valve unspecified, unspecified cause (Primary Dx); Osteoporosis, unspecified Social History Tobacco Use Types Packs/Day Years Used Date Smoking Tobacco: Never Assessed Comments Unknown Sex and Gender Information Value Date Recorded Sex Assigned at Not on file Legal Sex Female 5:[address] Gender Identity Not on file Sexual Orientation Not on file documented as of this encounter Plan of Treatment Not on file documented as of this encounter Visit Diagnoses Diagnosis Endocarditis, valve unspecified, unspecified cause- Primary Osteoporosis, unspecified documented in this encounter Care Teams Concrete Layer Relationship Specialty Start Date End Date Sharan Gómez Jr., MD [address] [place] [phone] PCP - General 08/10/05 documented as of this encounter
--- OUTSIDE RECORDS SUMMARY | 2025-10-14 20:08 | XMS_ITS | Encounter Summary ---
Author Organization [facility] Address [address] [place] [address] Care Team Providers Care Lab Tech Name Role Phone Rico Muñiz MD, Sharan Jaime Primary Care Provider Encounter Details Date Type Department Care Team (Latest Contact Info) Description 06/20/1999 Outpatient Historical [facility] Imaging Services-[facility]al [facility] [place] [address] [place] [address] Serge Arrington MD [address] [place] [address] Cough (Primary Dx) Social History Tobacco Use Types Packs/Day Years Used Date Smoking Tobacco: Never Assessed Comments Unknown Sex and Gender Information Value Date Recorded Sex Assigned at Not on file Legal Sex Female 5:42 AM GAS LINE REPAIRER Gender Identity Not on file Sexual Orientation Not on file documented as of this encounter Plan of Treatment Not on file documented as of this encounter Visit Diagnoses Diagnosis Cough- Primary documented in this encounter Care Teams Lab Tech Relationship Specialty Start Date End Date Sharan Gómez Jr., MD [address] [place] [address] PCP - General 08/10/05 documented as of this encounter
--- OUTSIDE RECORDS SUMMARY | 2025-10-14 20:08 | XMS_ITS | Encounter Summary ---
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 Social History Tobacco Use Types Packs/Day Years Used Date Smoking Tobacco: Never Assessed Comments Unknown Sex and Gender Information Value Date Recorded Sex Assigned at Not on file Legal 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 Gender Identity Not on file Sexual Orientation Not on file documented as of this encounter Plan of Treatment Not on file documented as of this encounter Visit Diagnoses Diagnosis Pure hypercholesterolem- Primary Pure hypercholesterolemia Heart valve replaced by other means Osteoporosis, unspecified 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
--- NOTE | 2025-10-14 20:31 | CTR_ITS ---
PROCEDURE INFORMATION: Exam: CT Abdomen And Pelvis With Contrast Exam date and time: 10/14/2025 9:09 PM Age: 74 years old Clinical indication: Abdominal pain; Additional info: Lower abd pain, diarrhea TECHNIQUE: Imaging protocol: Computed tomography of the abdomen and pelvis with contrast. 1481 image(s) are submitted. Radiation optimization: All CT scans at this facility use at least one of these dose optimization techniques: automated exposure control; mA and/or kV adjustment per patient size (includes targeted exams where dose is matched to clinical indication); or iterative reconstruction. Contrast material: OMNI 350; Contrast volume: 100 ml; Contrast route: INTRAVENOUS (IV); COMPARISON: CT abdomen pelvis wo con [id number] 10/09/2020 4:04 PM RADIATION DOSE METRICS: Total DLP (mGy-cm): 550.68 FINDINGS: Heart: Cardiomegaly with extensive mitral valve calcification. No pericardial effusion. 5 mm right lower lobe pulmonary nodule seen on image number 4/4. No marlene evidence of pancreatitis. Diaphragm: 3.8 cm hiatal hernia, may be secondary to prior hiatus hernia surgery/fundoplication. Clinical history correlation is recommended. Liver: Normal. No mass. Gallbladder and biliary ducts: Status post cholecystectomy. Extensive arterial vascular calcification. 1.3 cm upper pole simple left renal cyst. 1.7 cm midpole left renal simple cyst. There are several subcentimeter cortical right renal cyst. No evidence of urinary tract obstruction or calculus. The urinary bladder is unremarkable. No free pelvic fluid. No adnexal mass seen. Degenerative changes of the thoracic and lumbar spine. Pancreas: See Heart finding. Spleen: Normal. No splenomegaly. Adrenal glands: Normal. No mass. Kidneys and ureters: See Gallbladder and biliary ducts finding. Stomach and bowel: See Soft tissues finding. Appendix: See Soft tissues finding. Intraperitoneal space: See Gallbladder and biliary ducts finding. Vasculature: See Gallbladder and biliary ducts finding. Lymph nodes: Unremarkable. No enlarged lymph nodes. Urinary bladder: See Gallbladder and biliary ducts finding. Reproductive: See Gallbladder and biliary ducts finding. Bones/joints: See Gallbladder and biliary ducts finding. Soft tissues: Right inguinal hernia located medial to the inferior epigastric artery measuring 5 cm in diameter containing several loops of nondistended normal appearing distal ileum without evidence of incarceration or small bowel obstruction. Normal appendix. No evidence of diverticulitis. There is diverticulosis in the sigmoid colon. No marlene evidence of constipation. CT/CT abdomen pelvis w con* [id number] IMPRESSION: 1. Right inguinal hernia located medial to the inferior epigastric artery measuring 5 cm in diameter containing several loops of nondistended normal appearing distal ileum without evidence of incarceration or small bowel obstruction, new since previous study. Normal appendix. No evidence of diverticulitis. There is diverticulosis in the sigmoid colon. No marlene evidence of constipation. 2. 3.8 cm hiatal hernia, may be secondary to prior hiatus hernia surgery/fundoplication. Clinical history correlation is recommended. 3. Cardiomegaly with extensive mitral valve calcification. No pericardial effusion. 5 mm right lower lobe pulmonary nodule seen on image number 4/4. For patients at low risk (minimal or absent history of smoking and of other known risk factors), no routine follow-up is indicated. For patients at high risk (history of smoking or of other known risk factors), consider optional CT Chest at 12 months. (Reference: Blayne) References: Blayne Avelar, et al. Guidelines for Management of Incidental Pulmonary Nodules Detected on CT Images: From the Fleischner Society 2017. Radiology. 2017;284(1):228-243. COMMENTS: Consistent with the [employer]'s Incidental Findings Committee white paper (J Am Ton Radiol 2018): Any incidental renal lesion less than 1 cm or classified as too small to characterize, or any incidental cystic renal lesion characterized as simple-appearing, is likely benign. No follow-up imaging is recommended for these lesions per consensus recommendations based on imaging criteria.
--- NOTE | 2025-10-14 20:31 | XRR_ITS ---
PROCEDURE INFORMATION: Exam: XR Chest Exam date and time: 10/14/2025 8:33 PM Age: 74 years old Clinical indication: Shortness of breath; Additional info: SOB TECHNIQUE: Imaging protocol: Radiologic exam of the chest. 216 image(s) are submitted. Views: 1 view. COMPARISON: CR XR chest 1V portable [id number] 09/25/2025 8:20 AM FINDINGS: Lungs: Further decrease in bilateral lung volumes since prior study. Bilateral mid to lower lung linear atelectasis, progressed since previous study, especially on the left side. Cardiomegaly. Status post median sternotomy. Mild pulmonary venous congestion bilaterally, slightly progressed since prior study. No pneumothorax or pleural effusion seen. Osteopenia. Pleural spaces: See Lungs finding. Heart/Mediastinum: See Lungs finding. Bones/joints: See Lungs finding. XR/XR chest 1V portable [id number] IMPRESSION: Further decrease in bilateral lung volumes since prior study. Bilateral mid to lower lung linear atelectasis, progressed since previous study, especially on the left side. Cardiomegaly. Status post median sternotomy. Mild pulmonary venous congestion bilaterally, slightly progressed since prior study. No pneumothorax or pleural effusion seen. Osteopenia.
[2025-10-14 20:51] LABS: Hematocrit 36.7 % (36-47); Hemoglobin 12.10 g/dL (11.27-16.99); Mean Corpuscular HGB Conc 33.0 g/dL (30-55); Mean Corpuscular Hemoglobin 34.6 pg (27-33); Mean Corpuscular Volume 104.9 fl (85-98); Nucleated Red Blood Cells % 0 %; Platelet Count 210 10^3/cmm (157-399); Red Blood Count 3.50 10^6/uL (3.85-5.65); White Blood Count 6.00 10^3/uL (3.29-11.43)
[2025-10-14] MEDS: oxyCODONE 5 mg IR Tab/Cap PO (20:54)
[2025-10-14] MEDS: ondansetron hcl ODT 4 mg Tab PO (20:54)
[2025-10-14 21:03] LABS: Lactic Sepsis W/Reflex 1.0 mmol/L (0.5-2.2); Troponin(5th) Baseline 15 ng/L (0-10)
[2025-10-14 21:08] LABS: Alanine Aminotransferase 14 U/L (0-33); Albumin Level 4.7 g/dL (3.5-5.2); Alkaline Phosphatase 92 U/L (35-105); Aspartate Amino Transferase 25 U/L (0-32); Chloride 104 mmol/L (98-107); Globulin 2.3 g/dL (1.3-4.6); Glucose 123 mg/dL (65-115); Potassium 4.0 mmol/L (3.5-5.1); Sodium 141 mmol/L (136-145); Total Protein 7.0 g/dL (6.6-8.7)
[2025-10-14] MEDS: iohexol 350 mg/mL 500 mL Btl (per mL) IV (21:13)
[2025-10-14 21:33] LABS: Anion Gap 15.0 (5-19); Blood Urea Nitrogen 24 mg/dL (8-23); Calcium 10.1 mg/dL (8.5-10.5); Carbon Dioxide 26 mmol/L (22-29); Creatinine Clr Calc Pharmacy 45.4278; Lipase 68 U/L (13-60); Magnesium 2.3 mg/dL (1.7-2.3); NT Pro B Type Natriuretic Pept 1504 pg/mL (0-450); Osmolality Calculated 297 mOsm/kg (285-295); Thyroid Stimulating Hormone 1.33 uIU/mL (0.27-4.20)
--- NOTE | 2025-10-14 21:36 | ECG_ITS ---
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 [id number]
--- NOTE | 2025-10-14 21:59 | W.ED.SOB ---
HPI - SOB/Dyspnea General: Chief Complaint: Shortness of Breath/Dyspnea Stated Complaint: numbness in both legs cant bear weight Time Seen by Provider: 10/14/25 20:12 History of Present Illness: HPI Narrative: Patient is a 74-year-old female with past medical history of hypertension, HLD, A-fib, CAD, CHF, CKD, hypothyroidism who presents to the ED with shortness of breath, mild nonradiating chest pressure, fatigue and loose stools that have been intermittent over the last 2 weeks, no reported fevers, chills, diaphoresis. She has not recently been on antibiotics or steroids, no recent travel, no recent exposure to sick contacts. She does not smoke. Does not recall any suspicious food intake. Associated symptoms: Reports chest pain Related Data Home Medications ?Medication ?Instructions ?Recorded ?Confirmed nitroglycerin 0.4 mg sublingual 0.4 mg sublingual Q5M PRN chest 11/07/19 09/22/25 tablet (Nitrostat) pains levothyroxine 75 mcg tablet 75 mcg PO DAILY@0700 hypothyroidism 11/11/20 09/22/25 (Euthyrox) tramadol 50 mg tablet 50 mg PO Q6H PRN Pain 11/11/20 09/22/25 meclizine 12.5 mg tablet 12.5 mg PO Q6H PRN nausea and 04/19/21 09/22/25 vomiting bismuth subsalicylate 525 mg/15 mL 525 mg PO Q8H PRN 08/15/21 09/22/25 oral suspension (Pepto-Bismol Max Nausea/vomiting/diarrhea St) mirtazapine 15 mg tablet 15 mg PO QAM 05/21/24 09/22/25 cetirizine 10 mg tablet (Zyrtec) 10 mg PO PRN PRN Allergy Symptoms 01/31/25 09/22/25 hydroxyzine HCl 25 mg tablet 25 mg PO TID PRN Anxiety 01/31/25 09/22/25 ipratropium bromide 42 mcg (0.06 2 spray intranasal TID PRN 01/31/25 09/22/25 %) nasal spray ALLERGIES magnesium hydroxide 400 mg/5 mL 30 ml PO PRN PRN bowel movemaent 01/31/25 09/22/25 oral suspension (Milk of Magnesia) warfarin 2.5 mg tablet See Rx Instructions .Route .COMPLEX 01/31/25 09/22/25 folic acid 1 mg tablet 1 mg PO DAILY 06/22/25 09/22/25 acetaminophen 500 mg tablet 1,000 mg PO Q8H 06/25/25 09/22/25 cbpyg-cspdretr-joz-turp-pet 1 ea topical PRN PRN thick toe 06/25/25 09/22/25 topical ointment nails cyanocobalamin (vitamin B-12) 2,000 mcg sublingual DAILY 06/25/25 09/22/25 1,000 mcg sublingual tablet methyl salicylate 30 %-menthol 10 1 applic topical TID PRN sore 06/25/25 09/22/25 % topical cream (Icy Hot) muscles spironolactone 25 mg tablet 25 mg PO QAM 06/25/25 09/22/25 aspirin 81 mg tablet,delayed 81 mg PO DAILY 07/27/25 09/22/25 release ondansetron 4 mg disintegrating 4 mg PO Q6H PRN Nausea And Vomiting 07/27/25 09/22/25 tablet pantoprazole 40 mg tablet,delayed 40 mg PO DAILY 09/06/25 09/22/25 release Previous Rx's ?Medication ?Instructions ?Recorded metoprolol tartrate 100 mg tablet 100 mg PO BID #180 tabs 12/05/24 galantamine 8 mg 24 hr 8 mg PO QAM 90 days #90 caps 05/06/25 capsule,extended release memantine 5 mg tablet 5 mg PO BID #180 tabs 05/06/25 atorvastatin 40 mg tablet 40 mg PO BEDTIME #30 tabs 06/29/25 isosorbide mononitrate 30 mg 30 mg PO DAILY #30 tabs 09/06/25 tablet,extended release 24 hr amiodarone 200 mg tablet See Rx Instructions .Route 10/08/25 .COMPLEX #90 tabs furosemide 40 mg tablet See Rx Instructions .Route 10/08/25 .COMPLEX #135 tabs furosemide 80 mg tablet (Lasix) 80 mg PO DAILY #14 tabs 10/14/25 meclizine 25 mg tablet (Dramamine 12.5 mg (1/2 x 25 mg) PO BID PRN 10/14/25 (meclizine)) dizziness #10 tabs tizanidine 2 mg capsule 2 mg PO Q8H PRN muscle spasticity 10/14/25 #20 caps Allergies Allergy/AdvReac Type Severity Reaction Status Date / Time diltiazem (From Cardizem) Allergy Unknown Verified 09/30/25 10:41 morphine Allergy Unknown Verified 09/30/25 10:41 Review of Systems General: Reports: 10 or more systems reviewed and unremarkable except in HPI and below Const: Reports: fatigue Card: Reports: chest pain Resp: Reports: dyspnea GI: Reports: diarrhea PFSH ED PFSH: Medical History (Updated 10/14/25 @ 22:52 by Chandana Montanez DO) Chronic anxiety History of iron deficiency anemia Alzheimer disease CKD (chronic kidney disease) stage 2, GFR 60-89 ml/min Hypertension CAD (coronary artery disease) CHF (congestive heart failure) Insomnia Hypothyroid Hyperlipidemia Chronic neck and back pain GERD (gastroesophageal reflux disease) Chronic atrial fibrillation Chronic constipation Surgical History History of heart artery stent Coronary angioplasty/stent placement in 2011 and in 2012 Hx of colonoscopy 2017 H/O esophagogastroduodenoscopy 2011, 2016, and 2018 S/P cholecystectomy H/O section Mitral valve replaced mechanical valve replacement 1994 Family History Other CAD (coronary artery disease) Diabetes Social History Smoking and tobacco/nicotine status: never used tobacco/nicotine Alcohol intake: never Substance/Drug Use: never Housing: Assisted Living Facility Marital status: Single Number of children: 1 Current occupational status: disabled Current gender identity: Female Female Reproductive History: Para: 1 Physical Exam Narrative: EXAM NARRATIVE: Patient mildly fatigued appearing but afebrile, nontoxic, vital stable on arrival. Abdomen mildly distended but nontender, bowel sounds increased, no overlying skin changes, no CVA tenderness. Breathing comfortably on room air, saturating well, slightly distant and decreased breath sounds but no wheezes or crackles, able to speak in full sentences without getting short of breath. Normal sinus rhythm with no murmurs, no leg swelling, slightly delayed cap refill, 2+ pulses throughout. GCS 15, able to follow commands and answer questions appropriately, at times gets confused with events of recent past, PERRL, no nystagmus, spontaneously and symmetrically moving all 4 extremities. Course Vital Signs: Vital signs: Vital Signs Temperature 97.5 F L 10/14/25 20:20 Pulse Rate 75 10/14/25 23:00 Respiratory Rate 18 10/14/25 22:00 Blood Pressure 121/67 10/14/25 23:00 Pulse Oximetry 98 10/14/25 23:00 Oxygen Delivery Me thod Room Air 10/14/25 20:20 MDM - SOB/Dyspnea Medical Decision Making -ddx: URI, pneumonia, enteritis, UTI, pneumonia, ACS, dysrhythmia, heart failure, pericarditis, viral syndrome, sinusitis, electrolyte abnormality, hypothyroidism - Patient overall well-appearing, with 2 weeks of intermittent systemic viral seeming symptoms, has had relatively decreased p.o. intake with diarrhea at home, reassuring abdominal exam, seems slightly dehydrated, will give slow fluids, treat symptomatically with Zofran and oxycodone and assess with infectious/cardiac workup, chest x-ray, EKG and CT scan and reassess. - Patient with ultimately reassuring workup, fluids were given empirically because did not have clinical evidence of fluid overload, seemingly most affected by her diarrhea but on further evaluation especially with her chest x-ray, she had small bilateral pleural effusions and mild pulmonary vascular congestion, her troponins and BNP were seemingly around her baseline. The remainder of her workup was ultimately reassuring, she had no systemic signs of infection or inflammation, electrolytes within normal limits, no EFRAIN, her CT scan was negative for acute intra-abdominal pathology, and it stated new right inguinal hernia that she states she had heard about this from her prior hospital, she has seen surgery for this prior and is not a great surgical candidate, no focal tenderness to the spine, lactate not elevated and so less concern for incarceration or strangulation and nothing to reduce on exam. She felt improved after Zofran and oxycodone, she was able to p.o. challenge without issue and discharged in stable condition and thought to have a mild CHF exacerbation, she was instructed to take a second dose of her Lasix at lunchtime for the next 5 days to help augment fluid removal, she was given tizanidine and meclizine for symptoms of intermittent cramps and dizziness that she has had over this time. Patient deemed to be stable for discharge, strict return precautions given, advised to follow-up with primary care physician in a week's time. Lab Data 10/14/25 20:34 10/14/25 20:34 Labs/Radiology: Radiology Impressions Abdomen/Pelvis CT 10/14/25 20:31 IMPRESSION: 1. Right inguinal hernia located medial to the inferior epigastric artery measuring 5 cm in diameter containing several loops of nondistended normal appearing distal ileum without evidence of incarceration or small bowel obstruction, new since previous study. Normal appendix. No evidence of diverticulitis. There is diverticulosis in the sigmoid colon. No marlene evidence of constipation. 2. 3.8 cm hiatal hernia, may be secondary to prior hiatus hernia surgery/fundoplication. Clinical history correlation is recommended. 3. Cardiomegaly with extensive mitral valve calcification. No pericardial effusion. 5 mm right lower lobe pulmonary nodule seen on image number 4/4. For patients at low risk (minimal or absent history of smoking and of other known risk factors), no routine follow-up is indicated. For patients at high risk (history of smoking or of other known risk factors), consider optional CT Chest at 12 months. (Reference: Blayne) References: Blayne Avelar, et al. Guidelines for Management of Incidental Pulmonary Nodules Detected on CT Images: From the Fleischner Society 2017. Radiology. 2017;284(1):228-243. COMMENTS: Consistent with the [employer]'s Incidental Findings Committee white paper (J Am Ton Radiol 2018): Any incidental renal lesion less than 1 cm or classified as too small to characterize, or any incidental cystic renal lesion characterized as simple-appearing, is likely benign. No follow-up imaging is recommended for these lesions per consensus recommendations based on imaging criteria. Chest X-Ray 10/14/25 20:31 IMPRESSION: Further decrease in bilateral lung volumes since prior study. Bilateral mid to lower lung linear atelectasis, progressed since previous study, especially on the left side. Cardiomegaly. Status post median sternotomy. Mild pulmonary venous congestion bilaterally, slightly progressed since prior study. No pneumothorax or pleural effusion seen. Osteopenia. Laboratory Results WBC 6.00 10^3/uL (3.29-11.43) 10/14/25 20:34 RBC 3.50 10^6/uL (3.85-5.65) L 10/14/25 20:34 Hgb 12.10 g/dL (11.27-16.99) 10/14/25 20:34 Hct 36.7 % (36-47) 10/14/25 20: MCV 104.9 fl (85-98) H 10/14/25 20:34 MCH 34.6 pg (27-33) H 10/14/25 20:34 MCHC 33.0 g/dL (30-55) 10/14/25 20:34 RDW 12.4 % (12.1-15.1) 10/14/25 20:34 Plt Count 210 10^3/cmm (157-399) 10/14/25 20:34 MPV 9.5 fL (7.4-10.4) 10/14/25 20:34 Neut % (Auto) 54.3 % 10/14/25 20:34 Lymph % (Auto) 28.7 % 10/14/25 20:34 [place] % (Auto) 10.5 % 10/14/25:34 Eos % (Auto) 4.8 % 10/14/25:34 Baso % (Auto) 1.5 % 10/14/25 20:34 Neut # (Auto) 3.26 10^3/uL (1.8-7.7) 10/14/25 20:34 Lymph # (Auto) 1.7 10^3/uL (0.8-4.8) 10/14/25 20:34 [place] # (Auto) 0.6 10^3/uL (0.2-0.9) 10/14/25:34 Eos # (Auto) 0.3 10^3/uL (0.0-0.8) 10/14/25 20:34 Baso # (Auto) 0.1 10^3/uL (0.0-0.1) 10/14/25 20:34 Nucleated RBC % (auto) 0 % 10/14/25:34 Nucleated RBCs # 0.0 /100WBC 10/14/25 20:34 Sodium 141 mmol/L (136-145) 10/14/25 20:34 Potassium 4.0 mmol/L (3.5-5.1) 10/14/25 20:34 Chloride 104 mmol/L (98-107) 10/14/25 20:34 Carbon Dioxide 26 mmol/L (22-29) 10/14/25 20:34 Anion Gap 15.0 (5-19) 10/14/25 20:34 BUN 24 mg/dL (8-23) H 10/14/25 20:34 Creatinine 1.0 mg/dL (0.5-0.9) H 10/14/25 20:34 GFR Calculation Not Reportable 10/14/25 20:34 Glucose 123 mg/dL (65-115) H 10/14/25 20:34 Calculated Osmolality 297 mOsm/kg (285-295) H 10/14/25 20:34 Lactic Acid 1.0 mmol/L (0.5-2.2) 10/14/25 20:34 Calcium 10.1 mg/dL (8.5-10.5) 10/14/25 20:34 Magnesium 2.3 mg/dL (1.7-2.3) 10/14/25 20:34 Total Bilirubin 0.7 mg/dL (0.15-1.2) 10/14/25 20:34 AST 25 U/L (0-32) 10/14/25 20:34 ALT 14 U/L (0-33) 10/14/25 20:34 Alkaline Phosphatase 92 U/L (35-105) 10/14/25 20:34 Troponin T Baseline 15 ng/L (0-10) H 10/14/25 20:34 Troponin T 60 Minute 11.29 ng/L (0-10) H 10/14/25 21:30 Delta Troponin T -3.71 ABS# (0-10) L 10/14/25 21:30 C-Reactive Protein 3.0 mg/L (0.0-4.9) 10/14/25 20:34 NT-Pro-B Natriuret Pep 1504 pg/mL (0-450) H 10/14/25 20:34 Total Protein 7.0 g/dL (6.6-8.7) 10/14/25 20:34 Albumin 4.7 g/dL (3.5-5.2) 10/14/25 20:34 Globulin 2.3 g/dL (1.3-4.6) 10/14/25 20:34 Lipase 68 U/L (13-60) H 10/14/25 20:34 TSH 1.33 uIU/mL (0.27-4.20) 10/14/25 20:34 All radiology interpretation(s) finalized by discharge Discharge Plan Discharge Patient Disposition: Home Clinical Impression: CHF exacerbation, Hernia, inguinal, right Condition: Stable Prescriptions: New furosemide [Lasix] 80 mg tablet 80 mg PO DAILY Qty: 14 0RF meclizine [Dramamine (meclizine)] 25 mg tablet 12.5 mg PO BID PRN (Reason: dizziness) Qty: 10 0RF tizanidine 2 mg capsule 2 mg PO Q8H PRN (Reason: muscle spasticity) Qty: 20 0RF No Action nitroglycerin [Nitrostat] 0.4 mg tablet, sublingual 0.4 mg SUBLINGUAL Q5M PRN (Reason: chest pains) Pepto-Bismol Max St 525 mg/15 mL suspension 525 mg PO Q8H PRN (Reason: Nausea/vomiting/diarrhea) Rx Instructions: do not exceed 8 doses in a 24 hour period meclizine 12.5 mg tablet 12.5 mg PO Q6H PRN (Reason: nausea and vomiting ) mirtazapine 15 mg tablet 15 mg PO QAM metoprolol tartrate 100 mg tablet 100 mg PO BID Qty: 180 3RF folic acid 1 mg tablet 1 mg PO DAILY galantamine 8 mg capsule,ext rel. pellets 24 hr 8 mg PO QAM 90 Days Qty: 90 3RF memantine 5 mg tablet 5 mg PO BID Qty: 180 3RF furosemide 40 mg tablet See Rx Instructions .ROUTE .COMPLEX Qty: 135 3RF Dose Instruction: TAKE 2 TABLETS BY MOUTH EVERY MORNING FOR edema Rx Instructions: TAKE 2 TABLETS BY MOUTH EVERY MORNING FOR edema amiodarone 200 mg tablet See Rx Instructions .ROUTE .COMPLEX Qty: 90 3RF Dose Instruction: TAKE 1 TABLET BY MOUTH EVERY DAY; CHECK PULSE HOLD IF BP BELOW 110/60 FOR AFIB Rx Instructions: TAKE 1 TABLET BY MOUTH EVERY DAY; CHECK PULSE HOLD IF BP BELOW 110/60 FOR AFIB tramadol 50 mg Tablet 50 mg PO Q6H PRN (Reason: Pain) levothyroxine [Euthyrox] 75 mcg tablet 75 mcg PO DAILY@0700 cetirizine [Zyrtec] 10 mg Tablet 10 mg PO PRN PRN (Reason: Allergy Symptoms) warfarin 2.5 mg tablet See Rx Instructions .ROUTE .COMPLEX Rx Instructions: Take 1 tablet by mouth on Sunday , Sunday , , Sunday , and Sunday hydroxyzine HCl 25 mg tablet 25 mg PO TID PRN (Reason: Anxiety) ipratropium bromide 42 mcg (0.06 %) spray,non-aerosol 2 spray INTRANASAL TID PRN (Reason: ALLERGIES) magnesium hydroxide [Milk of Magnesia] 400 mg/5 mL Suspension 30 ml PO PRN PRN (Reason: bowel movemaent ) cyanocobalamin (vitamin B-12) 1,000 mcg Tablet, Sublingual 2,000 mcg SUBLINGUAL DAILY urchk-qesirhjt-cco-turp-pet Ointment 1 ea TOPICAL PRN PRN (Reason: thick toe nails) acetaminophen 500 mg Tablet 1,000 mg PO Q8H Icy Hot 30-10 % Cream 1 applic TOPICAL TID PRN (Reason: sore muscles) spironolactone 25 mg tablet 25 mg PO QAM atorvastatin 40 mg Tablet 40 mg PO BEDTIME Qty: 30 0RF aspirin [Aspir-81] 81 mg Tablet,Delayed Release (Dr/Ec) 81 mg PO DAILY ondansetron 4 mg tablet,disintegrating 4 mg PO Q6H PRN (Reason: Nausea And Vomiting) isosorbide mononitrate 30 mg tablet extended release 24 hr 30 mg PO DAILY Qty: 30 0RF pantoprazole 40 mg tablet,delayed release (DR/EC) 40 mg PO DAILY Discharge Orders: Discharge ED (Routine); Ordered 10/14/25 Ordered By: Chandana Montanez Referrals: Danny Marmolejo MD [Primary Care Provider, Family Practice] Patient Instructions: Opioid Safety, Pain Management, Patient Portal & Radha Instructions Activity Restrictions/Additional Instructions: You were seen for your diarrhea, chest pressure and shortness of breath, your evaluated with labs, EKG, chest x-ray and CT scan that were ultimately reassuring for no emergent conditions today, you have a mild exacerbation of your heart failure causing a small amount of fluid buildup probably causing your chest pressure and shortness of breath. You also have a right inguinal hernia that contains some bowel that might be contributing to your diarrhea. To help with this over the next 5 days, we will increase your Lasix dose, continue to take the 80 mg in the morning upon waking and then take a second dose of the 80 mg in the later afternoon, but not too late so you are not waking up to urinate frequently. For any muscle cramps resolved from this, use the tizanidine, 2 mg every 8 hours as needed for spasms. For your dizziness if it develops, try using the meclizine, 12.5 mg twice a day as needed for this. Make a follow-up appointment with your primary care provider in a week's time to reevaluate your medications and overall cardiac and fluid status. Return to the ED with severe worsening of your shortness of breath, severe chest pains, episodes of passing out, fevers, inability to eat or drink, any other emergent concerns Print Language: Mohawk Coding Level of Care Code ED Special Effects Technician for Indra Carmona
== END 2025-10-14 23:39 | disposition home or self-care (01) ==
PROVIDERS: Emergency Provider Student in an Organized Health Care Education/Training Program; PCP Family Medicine
DX: K40.90 Unilateral inguinal hernia, without obstruction or gangrene, not specified as recurrent (principal); Z79.01 Long term (current) use of anticoagulants; Z79.82 Long term (current) use of aspirin; E78.5 Hyperlipidemia, unspecified; I13.0 Hypertensive heart and chronic kidney disease with heart failure and stage 1 through stage 4 chronic kidney disease, or unspecified chronic kidney disease; N18.2 Chronic kidney disease, stage 2 (mild); I50.9 Heart failure, unspecified; I25.10 Atherosclerotic heart disease of native coronary artery without angina pectoris
CPT/HCPCS: 36415; 71045; 74177; 80053; 83605; 83690; 83735; 83880; 84443; 84484; 85025; 86140; 93005; 99285; J7030; J9999; Q0162